=== PATIENT | male | born 1965 | race Native Hawaiian/Other Pacific Islander ===

== ENCOUNTER 2022-04-02 18:41 | Inpatient (IN) | payer MEDICARE ==
[2022-04-02] MEDS ORDERED: SODIUM CHLORIDE 0.9% 1000 ML 1,000 ML IV ONE (19:02)
--- NOTE | 2022-04-02 19:21 | Emergency Department Report ---
ED Shortness of Breath HPI - General Chief Complaint: Dyspnea/Respdistress Stated Complaint: UNRESPONSIVE Time Seen by Provider: 04/02/22 19:02 Source: EMS Mode of arrival: Stretcher Limitations: Physical Limitation - History of Present Illness Initial Comments: Patient is a 57-year-old gentleman brought in from home by EMS for altered mental status and respiratory distress. He has history of ALS and was recently admitted for pneumonia. Family reports that he had a "heart attack "at that time. EMS noted patient altered with agonal breathing on arrival and began bag valve mask ventilation. He was also noted to be hypotensive and tachycardic. - Related Data Allergies Allergy/AdvReac Type Severity Reaction Status Date / Time No Known Allergies Allergy Verified 04/02/22 18:54 ED Review of Systems ROS: Stated complaint: UNRESPONSIVE Other details as noted in HPI Comment: Unobtainable due to pts medical conditions ED Past Medical Hx - Past Medical History Additional medical history: ALS - Social History Smoking Status: Never Smoker ED Physical Exam - General Limitations: Altered Mental Status General appearance: obtunded - Head Head exam: Present: atraumatic, normocephalic - Eye Eye exam: Present: normal appearance Pupils: Present: other (Pupils sluggish) - Respiratory Respiratory exam: Present: accessory muscle use, other (Poor respiratory effort likely secondary to ALS, BVM ventilation in progress) - Cardiovascular Cardiovascular Exam: Present: normal rhythm, tachycardia, normal heart sounds - GI/Abdominal GI/Abdominal exam: Present: soft. Absent: distended - Rectal Rectal exam: Present: deferred - Extremities Exam Extremities exam: Present: other (Muscular atrophy in all extremities) - Neurological Exam Neurological exam: Present: altered - Skin Skin exam: Present: intact, normal color, diaphoretic. Absent: rash ED Course Vital Signs 04/02/22 04/02/22 04/02/22 19:16 20:23 20:37 Temperature Pulse Rate Respiratory Rate Blood Pressure Blood Pressure [Right] O2 Sat by Pulse 0 L 94 94 Oximetry 04/02/22 04/02/22 04/02/22 21:13 21:15 21:16 Temperature 97.9 F Pulse Rate 130 H 128 H Respiratory 20 20 20 Rate Blood Pressure 87/50 Blood Pressure 87/50 [Right] O2 Sat by Pulse Oximetry 05/27/22 05/27/22 05/27/22 21:31 21:45 22:01 Temperature Pulse Rate 134 H 133 H 133 H Respiratory 20 20 20 Rate Blood Pressure 91/54 101/60 94/68 Blood Pressure [Right] O2 Sat by Pulse Oximetry 04/02/22 04/02/22 04/02/22 22:15 22:31 22:45 Temperature Pulse Rate 133 H 131 H 133 H Respiratory 20 20 20 Rate Blood Pressure 100/68 95/56 97/67 Blood Pressure [Right] O2 Sat by Pulse Oximetry - Intubation Time Out Performed: Yes Sedative: Etomidate Mg Given: 20 Paralytic: Rocuronium Mg Given: 100 Laryngoscope: fiberoptic video scope Size: 3 ET Tube Size: 7.5 Tube Secured Depth (cm): 22 Tube Secured Location: lips Tube Placement Confirmation: visualized tube passing t, equal breath sounds bilat, no breath sounds over epi Patient Tolerated Procedure: well, no complications Intubation Complications: none ED Medical Decision Making - Lab Data Result diagrams: 04/02/22 19:39 04/02/22 19:39 - Medical Decision Making Patient arrived via EMS from home for altered mental status and respiratory distress. On arrival he is being bagged by EMS with very little respiratory effort. Decision was made to emergently intubate using RSI. Chest x-ray obtained afterwards and reveals large right pleural effusion. Patient was also hypotensive on arrival and given 1 L bolus. Further fluid resuscitation avoided given pleural effusion. He was started on a Levophed drip. Also given IV Levaquin due to recent history of pneumonia and WBC count of 14. Troponin 0.048. EKG shows sinus tachycardia without any ischemic changes. Will discuss with on-call ICU physician with plans to admit to hospitalist. Critical care attestation.: If time is entered above; I have spent that time in minutes in the direct care of this critically ill patient, excluding procedure time. ED Disposition Clinical Impression: Acute respiratory failure, Pleural effusion, right Disposition: 09 ADMITTED INPATIENT Is pt being admited?: Yes Condition: Stable
--- NOTE | 2022-04-02 19:36 | XRay Report ---
CHEST 1 VIEW INDICATION: placement. COMPARISON: None FINDINGS: SUPPORT DEVICES: Endotracheal tube tip in satisfactory position at the level the clavicles. HEART: Within normal limits. LUNGS/PLEURA: Slightly rotated exam with moderate to large layering effusion on the right. Left lung is clear. Mild elevation of the right hemidiaphragm. ADDITIONAL FINDINGS: Gaseous distention of the stomach incidentally noted. IMPRESSION: 1. Support device in lung findings as above. Signer Name: Ponce Vuong MD Signed: 04/02/2022 7:32 PM Workstation Name: [id number]
[2022-04-02 20:00] LABS: ABG Base Excess 6.2 mmol/L (-2.0-3.0); ABG HCO3 30.6 mmol/L (20.0-26.0); ABG Methemoglobin 0.2 % (0.0-1.5); ABG Oxygen Saturation 94.4 % (95.0-99.0); ABG PCO2 42.9 mm Hg; ABG PH 7.471 pH Units (7.350-7.450); ABG PO2 47.8 mm Hg (80.0-90.0)
[2022-04-02 20:25] LABS: Hematocrit 39.4 % (35.5-45.6); Hemoglobin 12.9 gm/dl (11.8-15.2); Mean Corpuscular HGB Conc 33 % (32-34); Mean Corpuscular Volume 96 fl (84-94); Platelet Count 104 K/mm3 (140-440); Red Blood Count 4.11 M/mm3 (3.65-5.03); Red Cell Distribution Width 14.1 % (13.2-15.2)
[2022-04-02 20:35] LABS: INR 1.14 (0.87-1.13); Partial Thromboplastin Time 28.6 Sec. (24.2-36.6)
[2022-04-02 20:44] LABS: Alanine Aminotransferase 9 units/L (7-56); Albumin 2.7 g/dL (3.9-5); Blood Urea Nitrogen 20 mg/dL (9-20); Calcium 8.2 mg/dL (8.4-10.2); Hemolysis Index 40
[2022-04-02 21:00] LABS: BUN/Creatinine Ratio 40
[2022-04-02 21:17] LABS: HDL Cholesterol 47 mg/dL (40-59); LDL Cholesterol,Direct 27 mg/dL (50-130)
[2022-04-02] MEDS: NORepinephrine/NS 8 MG-250 ML 8 MG/250 ML INFUS..BTL IV SCH (21:38)
[2022-04-02 21:45] LABS: Bacteria,Urine 1+ /HPF (Negative); Bilirubin,Urine NEG (Negative); Blood,Urine NEG (Negative); Color,Urine Yellow (Yellow); Mucus,Urine FEW /HPF; Urobilinogen,Urine < 2.0 mg/dL (<2.0)
[2022-04-02] MEDS: MIDAZOLAM 2 MG/2 ML INJ IV PRN (22:10)
[2022-04-02] MEDS ORDERED: MIDAZOLAM/NS Drip 100mg/100ml 100 MG/100 ML BAG IV SCH (23:00)
[2022-04-02] MEDS ORDERED: VANCOMYCIN PHARMACY TO DOSE IV SCH (23:45)
[2022-04-02] MEDS ORDERED: SODIUM CHLORIDE 0.9% 1000 ML 1,000 ML IV SCH (23:45)
[2022-04-02] MEDS ORDERED: ONDANSETRON 4 MG/2 ML INJ IV PRN (23:53)
[2022-04-02] MEDS ORDERED: MAGNESIUM HYDROXIDE (MOM) ORAL LIQD UDC PO PRN (23:53)
[2022-04-02] MEDS ORDERED: MORPHINE 4 MG/1 ML INJ IV PRN (23:53)
[2022-04-02] MEDS ORDERED: MORPHINE 2 MG/1 ML INJ IV PRN (23:53)
[2022-04-03 00:03] LABS: Basophils % (Manual) 0 % (0.0-1.8); Eosinophils % (Manual) 0 % (0.0-4.3); Total Cells Counted 100
[2022-04-03 00:04] LABS: Anisocytosis 1+; Platelet Estimate Consistent w Auto
--- NOTE | 2022-04-03 00:05 | History and Physical Report ---
History of Present Illness Date of examination: 04/02/22 Date of admission: 04/02/2022 Chief complaint: Altered Mental Status History of present illness: 57-year-old male with known history of ALS brought into the emergency room via EMS today for changes in mental status and respiratory distress. Most of the history was gotten from family namely and daughter who were by the bedside as patient is currently intubated. Patient was said to have been seen at [facility] few days ago where he was diagnosed with pneumonia and possible heart attack. Discharge paperwork from [facility] was reviewed by the bedside and patient was said to have been diagnosed with pneumonia and also elevated troponin. Elevated troponin was said to be possibly due to demand ischemia and patient did not undergo any further cardiac work-up. Patient was subsequently discharged home. Patient was said to have suddenly had a change in mental status today and was not quite responsive. There has been no fever or chills. No complaint of chest pain, no nausea or vomiting and no abdominal pain. Work-up in the emergency room today, lab reveals leukocytosis of 14.3, troponin 0.048, sodium of 151. Urinalysis essentially within normal limits. Chest x-ray reveals moderate to large effusion on the right. Patient was said to be having Agonal breathing and was subsequently intubated in the emergency room. Past History Past Medical History: other (ALS) Past Surgical History: No surgical history Social history: no significant social history Family history: no significant family history Medications and Allergies Allergies Allergy/AdvReac Type Severity Reaction Status Date / Time No Known Allergies Allergy Verified 04/02/22 18:54 Home Medications Medication Instructions Recorded Confirmed Last Taken Type Baclofen [Lioresal] 10 mg PO TID 04/03/22 04/03/22 04/02/22 History Gabapentin 300 mg PO BID 04/03/22 04/03/22 04/02/22 History Glycopyrrolate [Robinul] 1 mg PO BID 04/03/22 04/03/22 04/02/22 History Hyoscyamine Subl [Levsin Sl 0.125 0.125 mg SUBLINGUAL Q4HR 04/03/22 04/03/22 Unknown History TAB] LORazepam [Ativan] 1 mg PO Q4HR PRN 04/03/22 04/03/22 04/02/22 History Nuedexta 20-10 mg Capsule 1 cap PO Q12HR 04/03/22 04/03/22 04/02/22 History Riluzole 50 mg PO DAILY 04/03/22 04/03/22 04/02/22 History Active Meds: Active Medications Acetaminophen (Acetaminophen 325 Mg Tab) 650 mg PO Q6H PRN PRN Reason: Pain MILD(1-3)/Fever >100.5/FAITH Heparin Sodium (Porcine) (Heparin 5,000 Unit/1 Ml Vial) 5,000 unit SUB-Q Q8HR SEGUNDO NORepinephrine/NS 8 MG-250 ML (Norepinephrine/Ns 8 Mg-250 Ml (Double Conc)) 8 mg in 250 mls @ 3.75 mls/hr IV TITRATE SEGUNDO; Protocol Last Titration: 04/02/22 23:51 Dose: 8 mcg/min, 15 mls/hr MIDAZOLAM/NS Drip 100mg/100ml (Midazolam/Ns Drip 100mg/100ml) 100 mg in 100 mls @ 1 mls/hr IV TITR SEGUNDO; Protocol Last Titration: 04/02/22 23:51 Dose: 2 mg/hr, 2 mls/hr Sodium Chloride (Nacl 0.9% 1000 Ml) 1,000 mls @ 125 mls/hr IV DIRECT SEGUNDO Cefepime HCl (Cefepime/Ns 2 Gm/100 Ml) 2 gm in 100 mls @ 200 mls/hr IV Q8H SEGUNDO; Protocol Magnesium Hydroxide (Magnesium Hydroxide (Mom) Oral Liqd Udc) 30 ml PO Q4H PRN PRN Reason: Constipation Midazolam HCl (Midazolam 2 Mg/2 Ml Inj) 2 mg IV Q10MIN PRN PRN Reason: Sedation Last Admin: 04/02/22 22:10 Dose: 2 mg Morphine Sulfate (Morphine 2 Mg/1 Ml Inj) 2 mg IV Q4H PRN PRN Reason: Pain, Moderate (4-6) Morphine Sulfate (Morphine 4 Mg/1 Ml Inj) 4 mg IV Q4H PRN PRN Reason: Pain , Severe (7-10) Ondansetron HCl (Ondansetron 4 Mg/2 Ml Inj) 4 mg IV Q8H PRN PRN Reason: Nausea And Vomiting Sodium Chloride (Sodium Chloride 0.9% 10 Ml Flush Syringe) 10 ml IV BID SEGUNDO Sodium Chloride (Sodium Chloride 0.9% 10 Ml Flush Syringe) 10 ml IV PRN PRN PRN Reason: LINE FLUSH Review of Systems ROS unobtainable: due to endotracheal tube Exam - Constitutional Vitals: Temp Pulse Resp BP Pulse Ox 97.9 F 133 H 20 82/53 99 04/02/22 21:16 04/02/22 23:45 04/02/22 23:45 04/02/22 23:45 04/02/22 23:05 General appearance: Present: no acute distress, well-nourished - EENT Eyes: Present: PERRL, EOM intact. Absent: scleral icterus ENT: hearing intact, clear oral mucosa, dentition normal - Neck Neck: Present: supple, normal ROM - Respiratory Respiratory effort: normal Respiratory: bilateral: diminished - Cardiovascular Rhythm: regular Heart Sounds: Present: S1 & S2. Absent: gallop, systolic murmur, diastolic murmur, rub, click - Extremities Extremities: no ischemia, pulses intact, pulses symmetrical, No edema, normal temperature, normal color, Full ROM Peripheral Pulses: within normal limits - Abdominal General gastrointestinal: Present: soft, non-tender, non-distended, normal bowel sounds. Absent: mass - Integumentary Integumentary: Present: clear, warm, dry, normal turgor. Absent: rash - Musculoskeletal Musculoskeletal: other (Intubated and Sedated) - Psychiatric Psychiatric: cooperative - Neurologic Neurologic: no focal deficits, other (Intubated and Sedated) HEART Score - HEART Score Troponin: Troponin T 0.048 ng/mL (0.00-0.029) H 04/02/22 19:39 Results - Labs CBC & Chem 7: 04/02/22 19:39 04/03/22 05:14 Labs: Abnormal lab results 04/02/22 04/02/22 04/02/22 Range/Units 19:39 19:39 19:39 WBC 14.3 H (4.5-11.0) K/mm3 MCV 96 H (84-94) fl Plt Count 104 L (140-440) K/mm3 PT 15.9 H (12.2-14.9) Sec. INR 1.14 H (0.87-1.13) ABG pH (7.350-7.450) pH Units ABG pO2 (80.0-90.0) mm Hg ABG HCO3 (20.0-26.0) mmol/L ABG O2 Saturation (95.0-99.0) % ABG Base Excess (-2.0-3.0) mmol/L ABG Hemoglobin (14.0-18.0) gm/dl Oxyhemoglobin (95.0-99.0) % Sodium 151 H (137-145) mmol/L Creatinine 0.5 L (0.8-1.3) mg/dL Calcium 8.2 L (8.4-10.2) mg/dL Magnesium 1.60 L (1.7-2.3) mg/dL Troponin T 0.048 H (0.00-0.029) ng/mL Total Protein 4.6 L (6.3-8.2) g/dL Albumin 2.7 L (3.9-5) g/dL LDL Cholesterol Direct 27 L (50-130) mg/dL 04/02/22 Range/Units 19:42 WBC (4.5-11.0) K/mm3 MCV (84-94) fl Plt Count (140-440) K/mm3 PT (12.2-14.9) Sec. INR (0.87-1.13) ABG pH 7.471 H (7.350-7.450) pH Units ABG pO2 47.8 L (80.0-90.0) mm Hg ABG HCO3 30.6 H (20.0-26.0) mmol/L ABG O2 Saturation 94.4 L (95.0-99.0) % ABG Base Excess 6.2 H (-2.0-3.0) mmol/L ABG Hemoglobin 11.0 L (14.0-18.0) gm/dl Oxyhemoglobin 93.1 L (95.0-99.0) % Sodium (137-145) mmol/L Creatinine (0.8-1.3) mg/dL Calcium (8.4-10.2) mg/dL Magnesium (1.7-2.3) mg/dL Troponin T (0.00-0.029) ng/mL Total Protein (6.3-8.2) g/dL Albumin (3.9-5) g/dL LDL Cholesterol Direct (50-130) mg/dL Assessment and Plan - Patient Problems (1) Acute respiratory failure Current Visit: No Status: Acute Plan to address problem: Possibly secondary to underlying pneumonia/pleural effusion. Patient placed on empiric IV antibiotics. Await culture results. Consult placed to pulmonology for further evaluation and recommendations. (2) History of amyotrophic lateral sclerosis Current Visit: No Status: Acute Plan to address problem: Stable. (3) Dehydration Current Visit: No Status: Acute Plan to address problem: Patient placed on IV fluid normal saline. Will monitor chemistry. (4) Elevated troponin Current Visit: Yes Status: Acute Plan to address problem: Possibly a type II troponin leak Will monitor EKG. We will also trend troponin levels. Consult placed to cardiology for recommendations. (5) DVT prophylaxis Current Visit: No Status: Acute Plan to address problem: Patient placed on subcutaneous heparin. (6) Full code status Current Visit: No Status: Acute Plan to address problem: Patient is full code.
[2022-04-03] MEDS ORDERED: VANCOMYCIN/NS 1 GM/250 ML 1 GM/250 ML BAG IV ONE ×2 (01:00→05:00)
[2022-04-03] MEDS ORDERED: CEFEPIME/NS 2 GM/100 ML 2 GM/100 ML BAG IV SCH ×2 (04:00)
[2022-04-03] MEDS ORDERED: ACETAMINOPHEN 650 MG RECT SUPP PR ONE (04:50)
[2022-04-03 05:51] LABS: Blood Urea Nitrogen 20 mg/dL (9-20); Calcium 8.8 mg/dL (8.4-10.2); Hemolysis Index 23
[2022-04-03 05:52] LABS: BUN/Creatinine Ratio 50
[2022-04-03] MEDS: HEPARIN 5,000 UNIT/1 ML VIAL SUB-Q SCH ×3 (05:57→21:30)
--- NOTE | 2022-04-03 06:41 | Consultation ---
History of Present Illness Consult date: 04/03/22 Requesting physician: BRONSON CAMPOS Reason for consult: other (Resp failure , vent management) History of present illness: 57-year-old male with known history of ALS brought into the emergency room via EMS today for changes in mental status and respiratory distress. Most of the history was gotten from family namely and daughter who were by the bedside as patient is currently intubated. Patient was said to have been seen at [facility] few days ago where he was diagnosed with pneumonia and possible heart attack. Discharge paperwork from [facility] was reviewed by the bedside and patient was said to have been diagnosed with pneumonia and also elevated troponin. Elevated troponin was said to be possibly due to demand ischemia and patient did not undergo any further cardiac work-up. Patient was subsequently discharged home. Patient was said to have suddenly had a change in mental status today and was not quite responsive. There has been no fever or chills. No complaint of chest pain, no nausea or vomiting and no abdominal pain. Work-up in the emergency room today, lab reveals leukocytosis of 14.3, troponin 0.048, sodium of 151. Urinalysis essentially within normal limits. Chest x-ray reveals moderate to large effusion on the right. Patient was said to be having Agonal breathing and was subsequently intubated in the emergency room. Patient seen and examined. Vitals, labs, medications, chart and imaging reviewed Past History Past Medical History: other (ALS) Past Surgical History: No surgical history Social history: no significant social history Family history: no significant family history Medications and Allergies Allergies Allergy/AdvReac Type Severity Reaction Status Date / Time No Known Allergies Allergy Verified 04/02/22 18:54 Home Medications Medication Instructions Recorded Confirmed Last Taken Type Baclofen [Lioresal] 10 mg PO TID 04/03/22 04/03/22 04/02/22 History Gabapentin 300 mg PO BID 04/03/22 04/03/22 04/02/22 History Glycopyrrolate [Robinul] 1 mg PO BID 04/03/22 04/03/22 04/02/22 History Hyoscyamine Subl [Levsin Sl 0.125 0.125 mg SUBLINGUAL Q4HR 04/03/22 04/03/22 Unknown History TAB] LORazepam [Ativan] 1 mg PO Q4HR PRN 04/03/22 04/03/22 04/02/22 History Nuedexta 20-10 mg Capsule 1 cap PO Q12HR 04/03/22 04/03/22 04/02/22 History Riluzole 50 mg PO DAILY 04/03/22 04/03/22 04/02/22 History Active Meds: Active Medications Acetaminophen (Acetaminophen 325 Mg Tab) 650 mg PO Q6H PRN PRN Reason: Pain MILD(1-3)/Fever >100.5/FAITH Heparin Sodium (Porcine) (Heparin 5,000 Unit/1 Ml Vial) 5,000 unit SUB-Q Q8HR SEGUNDO Last Admin: 04/03/22 05:57 Dose: 5,000 unit NORepinephrine/NS 8 MG-250 ML (Norepinephrine/Ns 8 Mg-250 Ml (Double Conc)) 8 mg in 250 mls @ 3.75 mls/hr IV TITRATE SEGUNDO; Protocol Last Titration: 04/03/22 03:25 Dose: 12 mcg/min, 22.5 mls/hr MIDAZOLAM/NS Drip 100mg/100ml (Midazolam/Ns Drip 100mg/100ml) 100 mg in 100 mls @ 1 mls/hr IV TITR SEGUNDO; Protocol Last Titration: 04/03/22 03:10 Dose: 3 mg/hr, 3 mls/hr Sodium Chloride (Nacl 0.9% 1000 Ml) 1,000 mls @ 125 mls/hr IV DIRECT SEGUNDO Last Admin: 04/03/22 03:51 Dose: 125 mls/hr Cefepime HCl (Cefepime/Ns 2 Gm/100 Ml) 2 gm in 100 mls @ 200 mls/hr IV Q8HR SEGUNDO; Protocol Last Admin: 04/03/22 04:23 Dose: 200 mls/hr Vancomycin HCl 750 mg/ Sodium (Chloride) 265 mls @ 166.667 mls/hr IV Q12H SEGUNDO Magnesium Hydroxide (Magnesium Hydroxide (Mom) Oral Liqd Udc) 30 ml PO Q4H PRN PRN Reason: Constipation Midazolam HCl (Midazolam 2 Mg/2 Ml Inj) 2 mg IV Q10MIN PRN PRN Reason: Sedation Last Admin: 04/02/22 22:10 Dose: 2 mg Morphine Sulfate (Morphine 2 Mg/1 Ml Inj) 2 mg IV Q4H PRN PRN Reason: Pain, Moderate (4-6) Morphine Sulfate (Morphine 4 Mg/1 Ml Inj) 4 mg IV Q4H PRN PRN Reason: Pain , Severe (7-10) Ondansetron HCl (Ondansetron 4 Mg/2 Ml Inj) 4 mg IV Q8H PRN PRN Reason: Nausea And Vomiting Sodium Chloride (Sodium Chloride 0.9% 10 Ml Flush Syringe) 10 ml IV BID SEGUNDO Sodium Chloride (Sodium Chloride 0.9% 10 Ml Flush Syringe) 10 ml IV PRN PRN PRN Reason: LINE FLUSH Review of Systems ROS unobtainable: due to endotracheal tube Physical Examination Vital signs: Vital Signs Pulse Ox 0 L 04/02/22 19:16 General appearance: appears uncomfortable, other (orally intubated, on full MVS- riding set vent rate) Eyes: non-icteric ENT: oropharynx moist Neck: supple, no lymphadenopathy, no JVD Effort: mildly labored Ascultation: Bilateral: diminished breath sounds (right lung), rhonchi Cardiovascular: regular rate and rhythm, other (S1,S2) Gastrointestinal: normoactive bowel sounds, soft, non-tender Extremities: no cyanosis, no edema, pink and warm, pulses normal pupils equal and round anxious Results - Laboratory Findings CBC and BMP: 04/06/22 04:00 04/06/22 04:00 ABG ABG pH 7.471 pH Units (7.350-7.450) H 04/02/22 19:42 ABG pCO2 42.9 mm Hg 04/02/22 19:42 ABG pO2 47.8 mm Hg (80.0-90.0) L 04/02/22 19:42 ABG O2 Saturation 94.4 % (95.0-99.0) L 04/02/22 19:42 PT/INR, D-dimer PT 15.9 Sec. (12.2-14.9) H 04/02/22 19:39 INR 1.14 (0.87-1.13) H 04/02/22 19:39 Abnormal lab findings: Abnormal Labs 04/02/22 04/02/22 04/02/22 19:39 19:39 19:39 WBC 14.3 H MCV 96 H Plt Count 104 L Seg Neuts % (Manual) 94.0 H Lymphocytes % (Manual) 1.0 L Seg Neutrophils # Man 13.4 H Lymphocytes # (Manual) 0.1 L PT 15.9 H INR 1.14 H ABG pH ABG pO2 ABG HCO3 ABG O2 Saturation ABG Base Excess ABG Hemoglobin Oxyhemoglobin Sodium 151 H Potassium Creatinine 0.5 L Calcium 8.2 L Magnesium 1.60 L Troponin T 0.048 H Total Protein 4.6 L Albumin 2.7 L LDL Cholesterol Direct 27 L 04/02/22 04/03/22 19:42 05:14 WBC MCV Plt Count Seg Neuts % (Manual) Lymphocytes % (Manual) Seg Neutrophils # Man Lymphocytes # (Manual) PT INR ABG pH 7.471 H ABG pO2 47.8 L ABG HCO3 30.6 H ABG O2 Saturation 94.4 L ABG Base Excess 6.2 H ABG Hemoglobin 11.0 L Oxyhemoglobin 93.1 L Sodium 149 H Potassium 3.4 L Creatinine 0.4 L Calcium Magnesium Troponin T Total Protein Albumin LDL Cholesterol Direct - Diagnostic Findings Chest x-ray: image reviewed 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 Protein calorie malnutrition Acute Bronchopneumonia HCAP Hypotension NSTEMI Hypernatremia Acute Metabolic Encephalopathy H/o Amyotrophic Lateral Sclerosis Nonverbal at Baseline Thrombocytopenia Protein Caloric Malnutrition Constipation - Noted on CXR and KUB -Adjust minute ventilation for better gas exchange -Lung protective strategies, increase PEEP while monitoring airway pressures -CXR, ABG as clinically indicated -Daily assessment for readiness to wean. Daily SBT -Wean vasopressors for MAP>65, Volume resuscitate -Fentanyl infusion fro pain management. Titrate to CPOT 0-2 - CXR suggesting atelectasis adn pleural effusion. Bronchodilators and mucolytics -Monitoring renal function, hemodynamics and electrolyte profile -Replete electrolytes as clinically indicated -Empiric antibiotics therapy for HAP -Accuchecks with glycemic control. target blood glucose 140-180 mg/dL. Avoid hypoglycemia -Confirm OGT position and initiate enteric nutritional support -VTE prophylaxis- Heparin -Avoid nephrotoxins and renally dose all medications -Stress ulcer prophylaxis- start famotidine -Mobility, frequent turning, off loading per facility protocol to prevent pressure ulcers -Cardioprotective measures, Follow echocardiogram -Maintain sleep wake cycle, avoid benzodiazepines. -Limit delirium CONDITION:CRITICAL PROGNOSIS: GUARDED CODE STATUS; FULL CODE Will need to discuss wiht family re goals of care- ALS is progressive and very limited therapeutic options The high probability of a clinically significant, sudden or life threatening deterioration of the respiratory, cardiovascular, neurology system required my full and direct attention, intervention and personal management. The aggregate critical care time was [75] minutes. This time is in addition to time spent performing reported procedures but includes the following: [x] Data Review and interpretation [x] Patient assessment and monitoring of vital signs [x] Documentation [x] Medication orders and management
[2022-04-03 06:43] LABS: ABG Base Excess 2.6 mmol/L (-2.0-3.0); ABG HCO3 25.5 mmol/L (20.0-26.0); ABG Methemoglobin 0.4 % (0.0-1.5); ABG Oxygen Saturation 97.5 % (95.0-99.0); ABG PCO2 33.7 mm Hg; ABG PH 7.496 pH Units (7.350-7.450)
[2022-04-03] MEDS ORDERED: ETOMIDATE 20 MG/10 ML INJ IV ONE (07:00)
[2022-04-03] MEDS ORDERED: ROCURONIUM 50 MG/5 ML INJ IV ONE (07:00)
[2022-04-03] MEDS: NORepinephrine/NS 8 MG-250 ML 8 MG/250 ML INFUS..BTL IV SCH ×2 (09:00→19:48)
--- NOTE | 2022-04-03 10:04 | Cat Scan Report ---
CT head/brain wo con INDICATION / CLINICAL INFORMATION: 57 years Male; AMS. TECHNIQUE: Routine CT head without contrast. All CT scans at this location are performed using CT dos e reduction for ALARA by means of automated exposure control. COMPARISON: None. FINDINGS: BRAIN / INTRACRANIAL CONTENTS: The motion degrades the image quality in this intubated patient. Howev er, there is mild prominence of the cerebral sulci indicative of mild cerebral atrophy. The ventricul ar system is correspondingly appropriate in size and configuration. A small focus of calcification pr ojected along the head of the right caudate. Otherwise, the brain appears to demonstrate appropriate attenuation for age. There is no clear CT evidence of acute intracranial hemorrhage or significant ma ss effect. ORBITS: No significant abnormality of visualized orbits. SINUSES / MASTOIDS: There is mild focal opacification along the posterior lateral left sphenoid sinus . CRANIOCERVICAL JUNCTION: No significant abnormality. ADDITIONAL FINDINGS: There is incidental small exostosis along the outer table of the left frontal ca lvarium. IMPRESSION: 1. There is no clear CT evidence of acute intracranial process. Signer Name: Puma Moreno MD Signed: 04/03/2022 10:00 AM Workstation Name: [id number]
--- NOTE | 2022-04-03 10:06 | Cat Scan Report ---
CT CHEST WITH CONTRAST INDICATION / CLINICAL INFORMATION: right lung mass/infiltrate/ adenopathy/effusion. TECHNIQUE: Axial CT images were obtained through the chest after 75 cc of Omnipaque [address]. [address] scan s at this location are performed using CT dose reduction for ALARA by means of automated exposure con trol. COMPARISON: Chest radiograph from yesterday, 04/02/2022. FINDINGS: Thoracic aorta is normal in caliber. No central pulmonary embolus. Heart is not enlarged. No coronary artery calcifications. No pericardial effusion. Mildly enlarged right hilar (series 2 image 63) and subcarinal (series 2 image 69) lymph nodes, nonspecific but likely reactive. No other adenopathy is s een. Endotracheal tube terminates in the midtrachea. There is prominent endobronchial debris in the right lower lobe bronchi with dense airspace consolidation of the right lower lobe with air bronchograms an d trace right pleural effusion. Extensive tree-in-bud opacities are present within the right upper an d right middle lobe. Left lung is clear. No pneumothorax. No acute abnormality of the upper abdomen. No acute osseous findings. IMPRESSION: 1. Prominent nonspecific endobronchial material in the right lower lobe with dense airspace consolida tion of the right lower lobe. Prominent tree-in-bud opacities and mild consolidation in the right upp er and middle lobes. Findings are most consistent with acute bronchopneumonia. 2. Mild right hilar and subcarinal lymphadenopathy is likely reactive. No discrete obstructing hilar adenopathy or mass. 3. Satisfactory position of endotracheal tube. Signer Name: Errol Oscar MD Signed: 04/03/2022 10:02 AM Workstation Name: [id number]
[2022-04-03] MEDS: FAMOTIDINE 20 MG/2 ML INJ IV SCH (10:10)
--- NOTE | 2022-04-03 10:21 | Consultation ---
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 Cardiac consultation for elevated troponin levels. Recent admission in [place] documented elevated troponin levels possibly secondary to demand ischemia no cardiac work-up was done at that time. Past History Past Medical History: other (ALS) Past Surgical History: No surgical history Social history: no significant social history Family history: no significant family history Medications and Allergies Allergies Allergy/AdvReac Type Severity Reaction Status Date / Time No Known Allergies Allergy Verified 04/02/22 18:54 Home Medications Medication Instructions Recorded Confirmed Last Taken Type Baclofen [Lioresal] 10 mg PO TID 04/03/22 04/03/22 04/02/22 History Gabapentin 300 mg PO BID 04/03/22 04/03/22 04/02/22 History Glycopyrrolate [Robinul] 1 mg PO BID 04/03/22 04/03/22 04/02/22 History Hyoscyamine Subl [Levsin Sl 0.125 0.125 mg SUBLINGUAL Q4HR 04/03/22 04/03/22 Unknown History TAB] LORazepam [Ativan] 1 mg PO Q4HR PRN 04/03/22 04/03/22 04/02/22 History Nuedexta 20-10 mg Capsule 1 cap PO Q12HR 04/03/22 04/03/22 04/02/22 History Riluzole 50 mg PO DAILY 04/03/22 04/03/22 04/02/22 History Active Meds: Active Medications Acetaminophen (Acetaminophen 325 Mg Tab) 650 mg PO Q6H PRN PRN Reason: Pain MILD(1-3)/Fever >100.5/FAITH Famotidine (Famotidine 20 Mg/2 Ml Inj) 20 mg IV QDAY SEGUNDO Heparin Sodium (Porcine) (Heparin 5,000 Unit/1 Ml Vial) 5,000 unit SUB-Q Q8HR SEGUNDO Last Admin: 04/03/22 05:57 Dose: 5,000 unit NORepinephrine/NS 8 MG-250 ML (Norepinephrine/Ns 8 Mg-250 Ml (Double Conc)) 8 mg in 250 mls @ 3.75 mls/hr IV TITRATE SEGUNDO; Protocol Last Titration: 04/03/22 03:25 Dose: 12 mcg/min, 22.5 mls/hr Sodium Chloride (Nacl 0.9% 1000 Ml) 1,000 mls @ 125 mls/hr IV DIRECT SEGUNDO Last Admin: 04/03/22 03:51 Dose: 125 mls/hr Vancomycin HCl 750 mg/ Sodium (Chloride) 265 mls @ 166.667 mls/hr IV Q12H SEGUNDO Dexmedetomidine HCl 400 mcg/ (Sodium Chloride) 104 mls @ 2.434 mls/hr IV TITRATE SEGUNDO; Protocol Cefepime HCl (Cefepime/Ns 2 Gm/100 Ml) 2 gm in 100 mls @ 200 mls/hr IV Q12H SEGUNDO; Protocol Magnesium Hydroxide (Magnesium Hydroxide (Mom) Oral Liqd Udc) 30 ml PO Q4H PRN PRN Reason: Constipation Midazolam HCl (Midazolam 2 Mg/2 Ml Inj) 2 mg IV Q10MIN PRN PRN Reason: Sedation Last Admin: 04/02/22 22:10 Dose: 2 mg Ondansetron HCl (Ondansetron 4 Mg/2 Ml Inj) 4 mg IV Q8H PRN PRN Reason: Nausea And Vomiting Potassium Chloride (Potassium Chloride 20 Meq Packet) 40 meq FEEDTUBE ONCE@1200 NR Stop: 04/03/22 15:00 Sodium Chloride (Sodium Chloride 0.9% 10 Ml Flush Syringe) 10 ml IV BID SEGUNDO Sodium Chloride (Sodium Chloride 0.9% 10 Ml Flush Syringe) 10 ml IV PRN PRN PRN Reason: LINE FLUSH Review of Systems ROS unobtainable: due to endotracheal tube, due to mental status Physical Examination Vital Signs Pulse Ox 0 L 04/02/22 19:16 General appearance: no acute distress, other (intubated) HEENT: Positive: PERRL, Normocephaly Neck: Positive: neck supple, trachea midline (intubated). Negative: JVD/HJR Cardiac: Positive: Regular Rate, S1/S2, PMI, Laterally Displaced. Negative: S3, S4 Lungs: Positive: clear to auscultation, No Wheeze, Rales, Rhonchi Neuro: Positive: Other (Intubated sedated) Extremities: Absent: edema Results 04/02/22 19:39 04/03/22 05:14 Cardiac Enzymes 04/02/22 Range/Units 19:39 AST 15 (5-40) units/L Coagulation 04/02/22 Range/Units 19:39 PT 15.9 H (12.2-14.9) Sec. INR 1.14 H (0.87-1.13) APTT 28.6 (24.2-36.6) Sec. Lipids 04/02/22 Range/Units 19:39 Triglycerides 80 (2-149) mg/dL Cholesterol 94 (50-199) mg/dL HDL Cholesterol 47 (40-59) mg/dL Cholesterol/HDL Ratio 2.00 % CBC 04/02/22 Range/Units 19:39 WBC 14.3 H (4.5-11.0) K/mm3 RBC 4.11 (3.65-5.03) M/mm3 Hgb 12.9 (11.8-15.2) gm/dl Hct 39.4 (35.5-45.6) % Plt Count 104 L (140-440) K/mm3 Comprehensive Metabolic Panel 04/02/22 04/03/22 Range/Units 19:39 05:14 Sodium 151 H 149 H (137-145) mmol/L Potassium 4.0 3.4 L (3.6-5.0) mmol/L Chloride 106.7 106.6 (98-107) mmol/L Carbon Dioxide 28 26 (22-30) mmol/L BUN 20 20 (9-20) mg/dL Creatinine 0.5 L 0.4 L (0.8-1.3) mg/dL Glucose 83 87 (75-100) mg/dL Calcium 8.2 L 8.8 (8.4-10.2) mg/dL AST 15 (5-40) units/L ALT 9 (7-56) units/L Alkaline Phosphatase 43 (35-129) units/L Total Protein 4.6 L (6.3-8.2) g/dL Albumin 2.7 L (3.9-5) g/dL EKG interpretations - Telemetry EKG Rhythm: Sinus Rhythm Assessment and Plan 1. Community-acquired bronchopneumonia 2. Respiratory failure s/p intubation on mechanical ventilator. 3. Equivocal serum troponin elevation rule out ischemic coronary artery disease 4. ALS Plan. Currently stable will obtain an echocardiogram to assess global and regional function. Will start on beta-artis therapy if hemodynamically stable. Treatment for bronchopneumonia as per pulmonary. Patient is not a candidate for invasive cardiac management we will continue conservative management
--- NOTE | 2022-04-03 10:38 | Progress Note ---
<ALEK SMITH - Last Filed: 04/03/22 16:38> Assessment and Plan Assessment and plan: This is a 57-year-old male with known history of ALS, recently hospitalized at [facility] admitted for acute hypoxemic respiratory failure 2/2 pneumonia Hospital Course to Date: 04/03: Intubated and Sedated on versed gtt, RASS-5. CT head/brain noted with no acute intracranial abnormality. Plan to initiated precededx gtt and wean off versed for a RASS goal of 0 to -2. CT chect also reviewed, findings are most consistent with acute bronchopneumonia. Continue empiric IV Abx, vent adjustment per CCM. ID consulted. Continue to F/U on cultures. Titrate pressor for MAP above 65. Medical records requested from [facility]. #Acute Hypoxemic Respiratory Failure 2/2 #Acute Bronchopneumonia - Intubated in the ED on 04/02 for hypoxemia and airway protection - Vent setting: PRVC-50%,6,14,400 - AM ABG noted - CXR shows moderate to large layering effusion on the right, see report for full detail - CT chest also reviewed, findings are most consistent with acute bronchopn eumonia. See report for full detail - CCM consulted, appreciate recommendations - Continue empiric IV and Nebs - VAP bundle addressed - Aspiration precaution HOB above 30 - Daily SBT and SAT trials as tolerated - Daily ABG and CXR - Continue SPO2 monitoring for SPO2 goal above 92% #Acute Bronchopneumonia #CAP vs HCAP - CXR shows moderate to large layering effusion on the right, see report for full detail - CT chest also reviewed, findings are most consistent with acute bronchopneumonia. See report for full detail - Patient was recent hospitalized for pneumonia - Patient remains afebrile, with no WBcs, and lactic is less than 2 - MRSA, CRP, and Procal pending - Empiric IV Abx initiated: Cefepine and Vanco - ID consulted - Continue to F/U on cultures - Daily CBC monitor #Hypotension #NSTEMI - Low BP probably due to hypovolemia vs sedation vs infectious process - On Levophed gtt - Elevated troponin possibly a type II troponin leak - Cardiology consulted, appreciated recommendations - Maintain adequate perfusion - Continue rehydration with cont. IVF - Continue blood pressure monitor per protocol - Titrate pressors to maintain MAP above 65 - 2D echo pending - Continue to trend cardiac enzymes #Hypernatremia - Na 149 this am - IVF switched to [id number] bag - FWF once OGT/NGT is inserted - Monitor and replace electrolytes as needed - Continue to trend BMP #Acute Metabolic Encephalopathy #H/o Amyotrophic Lateral Sclerosis #Nonverbal at Baseline - Presented with AMS, per family patient is nonverbal at baseline but responsive - currently intubated and sedated on versed gtt, RASS -5 - CT head/Brain with no acute intracranial process - Precedex gtt initiated, plan to wean off versed gtt - Titrate sedation for RASS goal of 0 to -2 - Daily SAT and SBT as tolerated - Avoid benzodiazepine to reduce the possibility of delirium - PRN analgesia for CPOT greater than 3 - Maintenance of sleep-wake cycle #Thrombocytopenia - Stable - Continue to trend plt - On heparin subQ - Monitor for s/s of any active bleeding #Protein Caloric Malnutrition - Albumin 2.7, Total protein 4.6 - Insert OGT/NGT - plan to initiated enteral nutrition - Nutrition consulted #Constipation - Noted on CXR and KUB - BR initiated #GI/DVT Prophylaxis - PPI- Pepcid - Heparin SubQ - SCDs to bilateral lower extremities while in bed #Advance Care Planning - Disease education data, care plan, diagnoses, and prognosis were discussed patient's , Carly Lopez, and patient daughter, Kaylee Warren, who translated for #[phone]. They reported that patient was following at [facility] for his ALS and during recent hospitalization at [facility] they were told nothing else can be offered to patient at this time and patient was discharge home with home hospice and PO morphine. First hospice visit was on , however, patient became unresponsive yesterday and they brought in to the hospital. - Goal of care and code status were also addressed at that time. Family wants to wait for a couple days to see how patient respond to current treatment before making a decision. All questions and concerns were addressed at this time. Patient family acknowledged understanding and agreement with care plan. - Patient remains a FULL CODE status. The high probability of a clinically significant, sudden or life threatening deterioration of the [multiple] system(s) required my full and direct attention, intervention and personal management. The aggregate critical care time was [60] minutes. This time is in addition to time spent performing reported procedures but includes the following: [x] Data Review and interpretation [x] Patient assessment and monitoring of vital signs [x] Documentation [x] Medication orders and management Disposition Plan: ICU Total Time Spent with Patient (Minutes): 60 History Interval history: Patient seen and examined at the bedside. Intubated and intubated on versed gtt. RASS-5, pupils are round and reactive with a weak gag/cough. On Levophed gtt for hypotension. VIRGILIO overnight Hospitalist Physical - Constitutional Vitals: Temp Pulse Resp BP Pulse Ox 100 F H 94 H 14 96/61 98 04/03/22 06:00 04/03/22 08:45 04/03/22 07:10 04/03/22 08:45 04/03/22 08:45 General appearance: Present: no acute distress, cachectic, other (Intubated and sedated) - EENT Eyes: Present: PERRL, miosis - Respiratory Respiratory effort: normal Respiratory: bilateral: rhonchi - Cardiovascular Rhythm: regular Heart Sounds: Present: S1 & S2 - Extremities Extremities: no ischemia, pulses intact, pulses symmetrical Peripheral Pulses: within normal limits - Abdominal General gastrointestinal: soft, non-distended, hypoactive bowel sounds - Integumentary Integumentary: Present: warm, dry - Psychiatric Psychiatric: other (Intubated and Sedated) - Neurologic Neurologic: other (Intubated and Sedated) - Allied Health Allied health notes reviewed: nursing HEART Score - HEART Score Troponin: Troponin T 0.048 ng/mL (0.00-0.029) H 04/02/22 19:39 Results - Labs CBC & Chem 7: 04/02/22 19:39 04/03/22 05:14 Labs: Laboratory Last Values WBC 14.3 K/mm3 (4.5-11.0) H 04/02/22 19:39 RBC 4.11 M/mm3 (3.65-5.03) 04/02/22 19:39 Hgb 12.9 gm/dl (11.8-15.2) 04/02/22 19:39 Hct 39.4 % (35.5-45.6) 04/02/22 19:39 MCV 96 fl (84-94) H 04/02/22 19:39 MCH 32 pg (28-32) 04/02/22 19:39 MCHC 33 % (32-34) 04/02/22 19:39 RDW 14.1 % (13.2-15.2) 04/02/22 19:39 Plt Count 104 K/mm3 (140-440) L 04/02/22 19:39 Add Manual Diff Complete 04/02/22 19:39 Total Counted 100 04/02/22 19:39 Seg Neutrophils % Grain Weigher 04/02/22 19:39 Seg Neuts % (Manual) 94.0 % (40.0-70.0) H 04/02/22 19:39 Band Neutrophils % 0 % 04/02/22 19:39 Lymphocytes % (Manual) 1.0 % (13.4-35.0) L 04/02/22 19:39 Reactive Lymphs % (Man) 0 % 04/02/22 19:39 Monocytes % (Manual) 5.0 % (0.0-7.3) 04/02/22 19:39 Eosinophils % (Manual) 0 % (0.0-4.3) 04/02/22 19:39 Basophils % (Manual) 0 % (0.0-1.8) 04/02/22 19:39 Metamyelocytes % 0 % 04/02/22 19:39 Myelocytes % 0 % 04/02/22 19:39 Promyelocytes % 0 % 04/02/22 19:39 Blast Cells % 0 % 04/02/22 19:39 Nucleated RBC % Not Reportable 04/02/22 19:39 Seg Neutrophils # Man 13.4 K/mm3 (1.8-7.7) H 04/02/22 19:39 Band Neutrophils # 0.0 K/mm3 04/02/22 19:39 Lymphocytes # (Manual) 0.1 K/mm3 (1.2-5.4) L 04/02/22 19:39 Abs React Lymphs (Man) 0.0 K/mm3 04/02/22 19:39 Monocytes # (Manual) 0.7 K/mm3 (0.0-0.8) 04/02/22 19:39 Eosinophils # (Manual) 0.0 K/mm3 (0.0-0.4) 04/02/22 19:39 Basophils # (Manual) 0.0 K/mm3 (0.0-0.1) 04/02/22 19:39 Metamyelocytes # 0.0 K/mm3 04/02/22 19:39 Myelocytes # 0.0 K/mm3 04/02/22 19:39 Promyelocytes # 0.0 K/mm3 04/02/22 19:39 Blast Cells # 0.0 K/mm3 04/02/22 19:39 WBC Morphology Not Reportable 04/02/22 19:39 Hypersegmented Neuts Not Reportable 04/02/22 19:39 Hyposegmented Neuts Not Reportable 04/02/22 19:39 Hypogranular Neuts Not Reportable 04/02/22 19:39 Smudge Cells Not Reportable 04/02/22 19:39 Toxic Granulation Not Reportable 04/02/22 19:39 Toxic Vacuolation Not Reportable 04/02/22 19:39 Dohle Bodies Not Reportable 04/02/22 19:39 Pelger-Huet Anomaly Not Reportable 04/02/22 19:39 Terry Rods Not Reportable 04/02/22 19:39 Platelet Estimate Consistent w auto 04/02/22 19:39 Clumped Platelets Not Reportable 04/02/22 19:39 Plt Clumps, EDTA Not Reportable 04/02/22 19:39 Large Platelets Not Reportable 04/02/22 19:39 Giant Platelets Not Reportable 04/02/22 19:39 Platelet Satelliting Not Reportable 04/02/22 19:39 Plt Morphology Comment Not Reportable 04/02/22 19:39 RBC Morphology Not Reportable 04/02/22 19:39 Dimorphic RBCs Not Reportable 04/02/22 19:39 Polychromasia Not Reportable 04/02/22 19:39 Hypochromasia Not Reportable 04/02/22 19:39 Poikilocytosis Not Reportable 04/02/22 19:39 Anisocytosis 1+ 04/02/22 19:39 Microcytosis Not Reportable 04/02/22 19:39 Macrocytosis Not Reportable 04/02/22 19:39 Spherocytes Not Reportable 04/02/22 19:39 Pappenheimer Bodies Not Reportable 04/02/22 19:39 Sickle Cells Not Reportable 04/02/22 19:39 Target Cells Not Reportable 04/02/22 19:39 Tear Drop Cells Not Reportable 04/02/22 19:39 Ovalocytes Not Reportable 04/02/22 19:39 Helmet Cells Not Reportable 04/02/22 19:39 Patricio-[place] Bodies Not Reportable 04/02/22 19:39 [place] Rings Not Reportable 04/02/22 19:39 Cheikh Cells Not Reportable 04/02/22 19:39 Bite Cells Not Reportable 04/02/22 19:39 Crenated Cell Not Reportable 04/02/22 19:39 Elliptocytes Not Reportable 04/02/22 19:39 Acanthocytes (Spur) Not Reportable 04/02/22 19:39 Rouleaux Not Reportable 04/02/22 19:39 Hemoglobin C Crystals Not Reportable 04/02/22 19:39 Schistocytes Not Reportable 04/02/22 19:39 Malaria parasites Not Reportable 04/02/22 19:39 [place] Bodies Not Reportable 04/02/22 19:39 Hem Pathologist Commnt No 04/02/22 19:39 PT 15.9 Sec. (12.2-14.9) H 04/02/22 19:39 INR 1.14 (0.87-1.13) H 04/02/22 19:39 APTT 28.6 Sec. (24.2-36.6) 04/02/22 19:39 ABG pH 7.496 pH Units (7.350-7.450) H 04/03/22 06:30 ABG pCO2 33.7 mm Hg 04/03/22 06:30 ABG pO2 91.0 mm Hg (80.0-90.0) H 04/03/22 06:30 ABG HCO3 25.5 mmol/L (20.0-26.0) 04/03/22 06:30 ABG O2 Saturation 97.5 % (95.0-99.0) 04/03/22 06:30 ABG O2 Content 17.3 (0.0-44) 04/03/22 06:30 ABG Base Excess 2.6 mmol/L (-2.0-3.0) 04/03/22 06:30 ABG Hemoglobin 12.8 gm/dl (14.0-18.0) L 04/03/22 06:30 ABG Carboxyhemoglobin 0.9 % (0.0-5.0) 04/03/22 06:30 ABG Methemoglobin 0.4 % (0.0-1.5) 04/03/22 06:30 Oxyhemoglobin 96.2 % (95.0-99.0) 04/03/22 06:30 FiO2 50 % 04/03/22 06:30 Sodium 149 mmol/L (137-145) H 04/03/22 05:14 Potassium 3.4 mmol/L (3.6-5.0) L 04/03/22 05:14 Chloride 106.6 mmol/L (98-107) 04/03/22 05:14 Carbon Dioxide 26 mmol/L (22-30) 04/03/22 05:14 Anion Gap 20 mmol/L 04/03/22 05:14 BUN 20 mg/dL (9-20) 04/03/22 05:14 Creatinine 0.4 mg/dL (0.8-1.3) L 04/03/22 05:14 Estimated GFR > 60 ml/min 04/03/22 05:14 BUN/Creatinine Ratio 50 % 04/03/22 05:14 Glucose 87 mg/dL (75-100) 04/03/22 05:14 Lactic Acid 1.90 mmol/L (0.7-2.0) 04/02/22 19:39 Calcium 8.8 mg/dL (8.4-10.2) 04/03/22 05:14 Magnesium 1.60 mg/dL (1.7-2.3) L 04/02/22 19:39 Total Bilirubin 0.80 mg/dL (0.1-1.2) 04/02/22 19:39 AST 15 units/L (5-40) 04/02/22 19:39 ALT 9 units/L (7-56) 04/02/22 19:39 Alkaline Phosphatase 43 units/L (35-129) 04/02/22 19:39 Troponin T 0.048 ng/mL (0.00-0.029) H 04/02/22 19:39 Total Protein 4.6 g/dL (6.3-8.2) L 04/02/22 19:39 Albumin 2.7 g/dL (3.9-5) L 04/02/22 19:39 Albumin/Globulin Ratio 1.4 % 04/02/22 19:39 Triglycerides 80 mg/dL (2-149) 04/02/22 19:39 Cholesterol 94 mg/dL (50-199) 04/02/22 19:39 LDL Cholesterol Direct 27 mg/dL (50-130) L 04/02/22 19:39 HDL Cholesterol 47 mg/dL (40-59) 04/02/22 19:39 Cholesterol/HDL Ratio 2.00 % 04/02/22 19:39 Urine Color Yellow (Yellow) 04/02/22 Unknown Urine Turbidity Clear (Clear) 04/02/22 Unknown Urine pH 6.0 (5.0-7.0) 04/02/22 Unknown Ur Specific Liberal 1.015 (1.003-1.030) 04/02/22 Unknown Urine Protein 30 mg/dl mg/dL (Negative) 04/02/22 Unknown Urine Glucose (UA) Neg mg/dL (Negative) 04/02/22 Unknown Urine Ketones 20 mg/dL (Negative) 04/02/22 Unknown Urine Blood Neg (Negative) 04/02/22 Unknown Urine Nitrite Neg (Negative) 04/02/22 Unknown Urine Bilirubin Neg (Negative) 04/02/22 Unknown Urine Urobilinogen < 2.0 mg/dL (<2.0) 04/02/22 Unknown Ur Leukocyte Esterase Neg (Negative) 04/02/22 Unknown Urine WBC (Auto) 6.0 /HPF (0.0-6.0) 04/02/22 Unknown Urine RBC (Auto) 2.0 /HPF (0.0-6.0) 04/02/22 Unknown U Epithel Cells (Auto) < 1.0 /HPF (0-13.0) 04/02/22 Unknown Urine Bacteria (Auto) 1+ /HPF (Negative) 04/02/22 Unknown Urine Mucus Few /HPF 04/02/22 Unknown Microbiology: Microbiology 04/02/22 19:39 Peripheral/Venous Blood Culture - Preliminary Culture in Progress 04/02/22 19:39 Peripheral/Venous Blood Culture - Preliminary Culture in Progress Perez/IV: Voiding Method Indwelling Catheter Active Medications - Current Medications Current Medications: Generic Name Dose Route Start Last Admin Trade Name Freq PRN Reason Stop Dose Admin Acetaminophen 650 mg 04/02/22 23:53 Acetaminophen 325 Mg Tab PO Q6H PRN Pain MILD(1-3)/Fever >100.5/FAITH Famotidine 20 mg 04/03/22 10:00 Famotidine 20 Mg/2 Ml Inj IV QDAY [facility] Heparin Sodium (Porcine) 5,000 unit 04/03/22 06:00 04/03/22 05:57 Heparin 5,000 Unit/1 Ml Vial SUB-Q 5,000 unit Q8HR SEGUNDO Administration NORepinephrine/NS 8 MG-250 ML 8 mg in 250 mls @ 3.75 mls/hr 04/02/22 22:00 04/03/22 03:25 Norepinephrine/Ns 8 Mg-250 Ml (Double Conc) IV 12 mcg/min TITRATE SEGUNDO 22.5 mls/hr Titration Protocol 2 MCG/MIN Sodium Chloride 1,000 mls @ 125 mls/hr 04/02/22 23:45 04/03/22 03:51 Nacl 0.9% 1000 Ml IV 125 mls/hr DIRECT SEGUNDO Administration Vancomycin HCl 750 mg/ Sodium 265 mls @ 166.667 mls/hr 04/03/22 18:00 Chloride IV Q12H [facility] Dexmedetomidine HCl 400 mcg/ 104 mls @ 2.434 mls/hr 04/03/22 07:00 Sodium Chloride IV TITRATE [facility] Protocol 0.2 MCG/KG/HR Cefepime HCl 2 gm in 100 mls @ 200 mls/hr 04/03/22 18:00 Cefepime/Ns 2 Gm/100 Ml IV Q12H [facility] Protocol Magnesium Hydroxide 30 ml 04/02/22 23:53 Magnesium Hydroxide (Mom) Oral Liqd Udc PO Q4H PRN Constipation Midazolam HCl 2 mg 04/02/22 22:01 04/02/22 22:10 Midazolam 2 Mg/2 Ml Inj IV 2 mg Q10MIN PRN Administration Sedation Ondansetron HCl 4 mg 04/02/22 23:53 Ondansetron 4 Mg/2 Ml Inj IV Q8H PRN Nausea And Vomiting Potassium Chloride 40 meq 04/03/22 12:00 Potassium Chloride 20 Meq Packet FEEDTUBE 04/03/22 15:00 ONCE@1200 NR Sodium Chloride 10 ml 04/03/22 10:00 Sodium Chloride 0.9% 10 Ml Flush Syringe IV BID SEGUNDO Sodium Chloride 10 ml 04/02/22 23:53 Sodium Chloride 0.9% 10 Ml Flush Syringe IV PRN PRN LINE FLUSH <DIXIE BROWN E - Last Filed: 04/04/22 15:36> Assessment and Plan Assessment and plan: I saw and evaluated the patient. I agree with the findings and the plan of care as documented in the Nurse Practitioner's~note, with the following corrections and additions. Hospitalist Physical - Constitutional Vitals: Temp Pulse Resp BP Pulse Ox 97.4 F L 86 14 99/69 95 04/04/22 12:00 04/04/22 15:10 04/04/22 15:10 04/04/22 15:10 04/04/22 15:10 HEART Score - HEART Score Troponin: Troponin T 0.048 ng/mL (0.00-0.029) H 04/02/22 19:39 Results - Labs CBC & Chem 7: 04/04/22 04:18 04/04/22 04:18 Labs: Laboratory Last Values WBC 11.8 K/mm3 (4.5-11.0) H 04/04/22 04:18 RBC 3.86 M/mm3 (3.65-5.03) 04/04/22 04:18 Hgb 12.0 gm/dl (11.8-15.2) 04/04/22 04:18 Hct 35.8 % (35.5-45.6) 04/04/22 04:18 MCV 93 fl (84-94) 04/04/22 04:18 MCH 31 pg (28-32) 04/04/22 04:18 MCHC 34 % (32-34) 04/04/22 04:18 RDW 14.2 % (13.2-15.2) 04/04/22 04:18 Plt Count 132 K/mm3 (140-440) L 04/04/22 04:18 Add Manual Diff Complete 04/02/22 19:39 Total Counted 100 04/02/22 19:39 Seg Neutrophils % Grain Weigher 04/02/22 19:39 Seg Neuts % (Manual) 94.0 % (40.0-70.0) H 04/02/22 19:39 Band Neutrophils % 0 % 04/02/22 19:39 Lymphocytes % (Manual) 1.0 % (13.4-35.0) L 04/02/22 19:39 Reactive Lymphs % (Man) 0 % 04/02/22 19:39 Monocytes % (Manual) 5.0 % (0.0-7.3) 04/02/22 19:39 Eosinophils % (Manual) 0 % (0.0-4.3) 04/02/22 19:39 Basophils % (Manual) 0 % (0.0-1.8) 04/02/22 19:39 Metamyelocytes % 0 % 04/02/22 19:39 Myelocytes % 0 % 04/02/22 19:39 Promyelocytes % 0 % 04/02/22 19:39 Blast Cells % 0 % 04/02/22 19:39 Nucleated RBC % Not Reportable 04/02/22 19:39 Seg Neutrophils # Man 13.4 K/mm3 (1.8-7.7) H 04/02/22 19:39 Band Neutrophils # 0.0 K/mm3 04/02/22 19:39 Lymphocytes # (Manual) 0.1 K/mm3 (1.2-5.4) L 04/02/22 19:39 Abs React Lymphs (Man) 0.0 K/mm3 04/02/22 19:39 Monocytes # (Manual) 0.7 K/mm3 (0.0-0.8) 04/02/22 19:39 Eosinophils # (Manual) 0.0 K/mm3 (0.0-0.4) 04/02/22 19:39 Basophils # (Manual) 0.0 K/mm3 (0.0-0.1) 04/02/22 19:39 Metamyelocytes # 0.0 K/mm3 04/02/22 19:39 Myelocytes # 0.0 K/mm3 04/02/22 19:39 Promyelocytes # 0.0 K/mm3 04/02/22 19:39 Blast Cells # 0.0 K/mm3 04/02/22 19:39 WBC Morphology Not Reportable 04/02/22 19:39 Hypersegmented Neuts Not Reportable 04/02/22 19:39 Hyposegmented Neuts Not Reportable 04/02/22 19:39 Hypogranular Neuts Not Reportable 04/02/22 19:39 Smudge Cells Not Reportable 04/02/22 19:39 Toxic Granulation Not Reportable 04/02/22 19:39 Toxic Vacuolation Not Reportable 04/02/22 19:39 Dohle Bodies Not Reportable 04/02/22 19:39 Pelger-Huet Anomaly Not Reportable 04/02/22 19:39 Terry Rods Not Reportable 04/02/22 19:39 Platelet Estimate Consistent w auto 04/02/22 19:39 Clumped Platelets Not Reportable 04/02/22 19:39 Plt Clumps, EDTA Not Reportable 04/02/22 19:39 Large Platelets Not Reportable 04/02/22 19:39 Giant Platelets Not Reportable 04/02/22 19:39 Platelet Satelliting Not Reportable 04/02/22 19:39 Plt Morphology Comment Not Reportable 04/02/22 19:39 RBC Morphology Not Reportable 04/02/22 19:39 Dimorphic RBCs Not Reportable 04/02/22 19:39 Polychromasia Not Reportable 04/02/22 19:39 Hypochromasia Not Reportable 04/02/22 19:39 Poikilocytosis Not Reportable 04/02/22 19:39 Anisocytosis 1+ 04/02/22 19:39 Microcytosis Not Reportable 04/02/22 19:39 Macrocytosis Not Reportable 04/02/22 19:39 Spherocytes Not Reportable 04/02/22 19:39 Pappenheimer Bodies Not Reportable 04/02/22 19:39 Sickle Cells Not Reportable 04/02/22 19:39 Target Cells Not Reportable 04/02/22 19:39 Tear Drop Cells Not Reportable 04/02/22 19:39 Ovalocytes Not Reportable 04/02/22 19:39 Helmet Cells Not Reportable 04/02/22 19:39 Patricio-[place] Bodies Not Reportable 04/02/22 19:39 [place] Rings Not Reportable 04/02/22 19:39 Cheikh Cells Not Reportable 04/02/22 19:39 Bite Cells Not Reportable 04/02/22 19:39 Crenated Cell Not Reportable 04/02/22 19:39 Elliptocytes Not Reportable 04/02/22 19:39 Acanthocytes (Spur) Not Reportable 04/02/22 19:39 Rouleaux Not Reportable 04/02/22 19:39 Hemoglobin C Crystals Not Reportable 04/02/22 19:39 Schistocytes Not Reportable 04/02/22 19:39 Malaria parasites Not Reportable 04/02/22 19:39 [place] Bodies Not Reportable 04/02/22 19:39 Hem Pathologist Commnt No 04/02/22 19:39 PT 15.9 Sec. (12.2-14.9) H 04/02/22 19:39 INR 1.14 (0.87-1.13) H 04/02/22 19:39 APTT 28.6 Sec. (24.2-36.6) 04/02/22 19:39 ABG pH 7.517 pH Units (7.350-7.450) H 04/04/22 05:50 ABG pCO2 37.7 mm Hg 04/04/22 05:50 ABG pO2 115.5 mm Hg (80.0-90.0) H 04/04/22 05:50 ABG HCO3 29.9 mmol/L (20.0-26.0) H 04/04/22 05:50 ABG O2 Saturation 98.4 % (95.0-99.0) 04/04/22 05:50 ABG O2 Content 17.0 (0.0-44) 04/04/22 05:50 ABG Base Excess 6.7 mmol/L (-2.0-3.0) H 04/04/22 05:50 ABG Hemoglobin 12.3 gm/dl (14.0-18.0) L 04/04/22 05:50 ABG Carboxyhemoglobin 0.9 % (0.0-5.0) 04/04/22 05:50 ABG Methemoglobin 0.4 % (0.0-1.5) 04/04/22 05:50 Oxyhemoglobin 97.1 % (95.0-99.0) 04/04/22 05:50 FiO2 50 % 04/04/22 05:50 Sodium 143 mmol/L (137-145) 04/04/22 04:18 Potassium 3.5 mmol/L (3.6-5.0) L 04/04/22 04:18 Chloride 105.1 mmol/L (98-107) 04/04/22 04:18 Carbon Dioxide 31 mmol/L (22-30) H 04/04/22 04:18 Anion Gap 10 mmol/L 04/04/22 04:18 BUN 13 mg/dL (9-20) 04/04/22 04:18 Creatinine 0.3 mg/dL (0.8-1.3) L 04/04/22 04:18 Estimated GFR > 60 ml/min 04/04/22 04:18 BUN/Creatinine Ratio 43 % 04/04/22 04:18 Glucose 153 mg/dL (75-100) H 04/04/22 04:18 Lactic Acid 1.90 mmol/L (0.7-2.0) 04/02/22 19:39 Calcium 9.2 mg/dL (8.4-10.2) 04/04/22 04:18 Phosphorus 1.40 mg/dL (2.5-4.5) L 04/04/22 04:18 Magnesium 1.50 mg/dL (1.7-2.3) L 04/04/22 04:18 Total Bilirubin 0.80 mg/dL (0.1-1.2) 04/02/22 19:39 AST 15 units/L (5-40) 04/02/22 19:39 ALT 9 units/L (7-56) 04/02/22 19:39 Alkaline Phosphatase 43 units/L (35-129) 04/02/22 19:39 Troponin T 0.048 ng/mL (0.00-0.029) H 04/02/22 19:39 C-Reactive Protein 31.60 mg/dL (0.00-1.30) H 04/04/22 04:18 Total Protein 4.6 g/dL (6.3-8.2) L 04/02/22 19:39 Albumin 2.7 g/dL (3.9-5) L 04/02/22 19:39 Albumin/Globulin Ratio 1.4 % 04/02/22 19:39 Triglycerides 80 mg/dL (2-149) 04/02/22 19:39 Cholesterol 94 mg/dL (50-199) 04/02/22 19:39 LDL Cholesterol Direct 27 mg/dL (50-130) L 04/02/22 19:39 HDL Cholesterol 47 mg/dL (40-59) 04/02/22 19:39 Cholesterol/HDL Ratio 2.00 % 04/02/22 19:39 Urine Color Yellow (Yellow) 04/02/22 Unknown Urine Turbidity Clear (Clear) 04/02/22 Unknown Urine pH 6.0 (5.0-7.0) 04/02/22 Unknown Ur Specific Liberal 1.015 (1.003-1.030) 04/02/22 Unknown Urine Protein 30 mg/dl mg/dL (Negative) 04/02/22 Unknown Urine Glucose (UA) Neg mg/dL (Negative) 04/02/22 Unknown Urine Ketones 20 mg/dL (Negative) 04/02/22 Unknown Urine Blood Neg (Negative) 04/02/22 Unknown Urine Nitrite Neg (Negative) 04/02/22 Unknown Urine Bilirubin Neg (Negative) 04/02/22 Unknown Urine Urobilinogen < 2.0 mg/dL (<2.0) 04/02/22 Unknown Ur Leukocyte Esterase Neg (Negative) 04/02/22 Unknown Urine WBC (Auto) 6.0 /HPF (0.0-6.0) 04/02/22 Unknown Urine RBC (Auto) 2.0 /HPF (0.0-6.0) 04/02/22 Unknown U Epithel Cells (Auto) < 1.0 /HPF (0-13.0) 04/02/22 Unknown Urine Bacteria (Auto) 1+ /HPF (Negative) 04/02/22 Unknown Urine Mucus Few /HPF 04/02/22 Unknown Microbiology: Microbiology 04/02/22 19:16 Tracheal Aspirate Sputum Culture - Preliminary Gram Negative Deejay 04/02/22 19:39 Peripheral/Venous Blood Culture - Preliminary 04/02/22 19:39 Peripheral/Venous Blood Culture - Preliminary NO GROWTH AFTER 24 HOURS Perez/IV: Voiding Method Indwelling Catheter Active Medications - Current Medications Current Medications: Generic Name Dose Route Start Last Admin Trade Name Freq PRN Reason Stop Dose Admin Acetaminophen 650 mg 04/02/22 23:53 Acetaminophen 325 Mg Tab PO Q6H PRN Pain MILD(1-3)/Fever >100.5/FAITH Bisacodyl 10 mg 04/03/22 15:00 04/03/22 16:01 Bisacodyl 10 Mg Rect Supp [place] 10 mg ONCE SEGUNDO Administration Docusate Sodium 100 mg 04/03/22 15:00 04/04/22 09:58 Docusate Sodium 100 Mg/10 Ml Oral Liqd PO 100 mg BID SEGUNDO Administration Famotidine 20 mg 04/03/22 10:00 04/04/22 09:58 Famotidine 20 Mg/2 Ml Inj IV 20 mg QDAY SEGUNDO Administration Heparin Sodium (Porcine) 5,000 unit 04/03/22 06:00 04/04/22 13:59 Heparin 5,000 Unit/1 Ml Vial SUB-Q 5,000 unit Q8HR SEGUNDO Administration NORepinephrine/NS 8 MG-250 ML 8 mg in 250 mls @ 3.75 mls/hr 04/02/22 22:00 04/04/22 06:41 Norepinephrine/Ns 8 Mg-250 Ml (Double Conc) IV 6 mcg/min TITRATE SEGUNDO 11.25 mls/hr Titration Protocol 2 MCG/MIN Vancomycin HCl 750 mg/ Sodium 265 mls @ 166.667 mls/hr 04/03/22 18:00 04/04/22 06:14 Chloride IV 166.667 mls/hr Q12H SEGUNDO Administration Dexmedetomidine HCl 400 mcg/ 104 mls @ 2.434 mls/hr 04/03/22 07:00 04/04/22 11:00 Sodium Chloride IV 0 mcg/kg/hr TITRATE SEGUNDO 0 mls/hr Titration Protocol 0.2 MCG/KG/HR Cefepime HCl 2 gm in 100 mls @ 200 mls/hr 04/03/22 18:00 04/04/22 06:13 Cefepime/Ns 2 Gm/100 Ml IV 200 mls/hr Q12H SEGUNDO Administration Protocol Magnesium Hydroxide 30 ml 04/02/22 23:53 Magnesium Hydroxide (Mom) Oral Liqd Udc PO Q4H PRN Constipation Midazolam HCl 2 mg 04/02/22 22:01 04/04/22 08:10 Midazolam 2 Mg/2 Ml Inj IV 2 mg Q10MIN PRN Administration Sedation Ondansetron HCl 4 mg 04/02/22 23:53 Ondansetron 4 Mg/2 Ml Inj IV Q8H PRN Nausea And Vomiting Senna 17.6 mg 04/03/22 22:00 04/04/22 09:58 Sennosides Oral Liqd 8.8 Mg/5 Ml Oral Liqd PO 17.6 mg Q12HR SEGUNDO Administration Sodium Chloride 10 ml 04/03/22 10:00 04/04/22 09:59 Sodium Chloride 0.9% 10 Ml Flush Syringe IV 10 ml BID SEGUNDO Administration Sodium Chloride 10 ml 04/02/22 23:53 Sodium Chloride 0.9% 10 Ml Flush Syringe IV PRN PRN LINE FLUSH Nutrition/Malnutrition Assess - Dietary Evaluation Nutrition/Malnutrition Findings: Nutrition Notes Start: 04/04/22 13:13 Freq: Status: Active Protocol: Document 04/04/22 13:13 RS (Rec: 04/04/22 13:34 RS [id number]) Nutrition Notes Need for Assessment generated from: MD Order Initial or Follow up Assessment Current Diagnosis Respiratory Failure Other Pertinent Diagnosis Community-acquired pneu, ALS Labs/Tests K+: 3.5 CO2:31 Cr: 0.3 Glu:153 PO4: 1.4 M.5 Pertinent Medications Norepinephrine NS at 11.25mL/ hr Height 5 ft 4.8 in Weight 46.8 kg [place] Body Weight (kg) 61.27 BMI 17.2 Intake Prior to Admission Poor Weight change and time frame ENRRIQUE wt hx Weight Status Underweight Subjective/Other Information MD consult for TF. Pt has hx of ALS, family reports pt has difficulty chewing/swallowing foods. Pt is intubated. Pt noted some mild muscle wasting in temporal region, protruding clavical bone. Burn Absent Trauma Absent GI Symptoms Constipation Food Allergy No Current % PO Negligible Minimum of two criteria No Muscle Mass Mild Depletion (non-severe) #1 Nutrition Diagnosis Inadequate oral intake Etiology community acquired bronchopneumonia As Evidenced by Signs and Symptoms pt intubated and cannot consume food PO Is patient on ventilator? Yes Is Patient Ambulatory and/or Out of Bed No REE-([facility]-confined to bed) 1476.744 Kcal/Kg value to use for calculation 35 Approximate Energy Requirements Using 1638 kcal/Kg Calculation Used for Recommendations Kcal/kg Additional Notes PRO needs: 56-94g/day (>1.2-2g /kg BW/day) Fluid needs: 1mL/kcal or per MD Nutrition Intervention Change Diet Order: Start TF Nutrition Support: Vital AF 1.2 at 60mL/hr. Free water flush of 125mL q4hr Kcal 1,728 Protein (gm) 108 Fluid (mL) 1,168 Goal #1 TF initiation/tolerance Goal #2 Pt will meet at least 75% of kcal/PRO needs via TF Goal #3 Wt gain/maintenance Anticipated Discharge Needs: ENRRIQUE at this time Follow-Up By: 04/06/22 Additional Comments F/U for TF tolerance/ initiation, labs
[2022-04-03] MEDS: MIDAZOLAM 2 MG/2 ML INJ IV PRN ×2 (11:35→23:11)
[2022-04-03] MEDS ORDERED: POTASSIUM CHLORIDE 20 MEQ PACKET FEEDTUBE NR (12:00)
[2022-04-03] MEDS ORDERED: VANCOMYCIN 750 MG in SODIUM CHLORIDE 0.9% 250ML 250 ML IV SCH (12:00)
--- NOTE | 2022-04-03 12:14 | Procedure Note ---
Date of procedure: 04/03/22 Pre-op diagnosis: Sepsis Post-op diagnosis: same Procedure: Right Internal Jugular Central Line Placement Patient was evaluated and required Central line placement due to pressor requirement Telephone consent obtained for patient's spouse, Carly Lopez and daughter, Emelia Warren who translated for spouse A time-out was completed verifying correct patient, procedure, site, and positioning. Hand hygiene were performed immediately prior to the procedure and sterile technique was used throughout the procedure. The patient's right side of the neck was prepped with chlorhexidine scrub then draped in a sterile fashion. 1% Lidocaine was used to anesthetize the surrounding skin area. Ultrasound was utilized to localize the right internal jugular vein without difficulty. Then the right internal jugular vein was accessed using ultrasound guidance and a triple lumen catheter was introduced using the Seldinger technique. The catheter threaded smoothly over the guidewire and advanced easily into the vein and brisk blood return was observed from each lumen. Each lumen were flushed and clamped, then the catheter was sutured in place, a Biopatch was placed at the insertion site, and covered with a sterile dressing. Patient tolerated the procedure well, no signs of any adverse reaction noted. CXR shows good placement without PTX, CVC is okay to use. Total Time Spent with Patient (Minutes): 60 minutes Anesthesia: local Surgeon: ALEK SMITH Estimated blood loss: minimal Condition: stable Disposition: ICU
--- NOTE | 2022-04-03 13:09 | XRay Report ---
CHEST 1 VIEW KUB INDICATION: NGT placement. COMPARISON: Chest x-ray from yesterday FINDINGS: SUPPORT DEVICES: New right IJ CVL with tip at cavoatrial junction. Endotracheal tube remains in satis factory position. On the KUB, and NG tube terminates in the proximal stomach and should be advanced a nother 5 to 10 cm. HEART: Within normal limits. LUNGS/PLEURA: Significantly improved aeration in the right lung with mild patchy airspace disease gre atest in the right lower lobe. Left lung is clear. ADDITIONAL FINDINGS: None. IMPRESSION: 1. Support devices as above. 2. Significantly improved lungs. Signer Name: Ponce Vuong MD Signed: 04/03/2022 1:05 PM Workstation Name: [id number]
[2022-04-03] MEDS: DOCUSATE SODIUM 100 MG/10 ML ORAL LIQD PO SCH ×2 (16:00→21:31)
[2022-04-03] MEDS: CEFEPIME/NS 2 GM/100 ML 2 GM/100 ML BAG IV SCH (17:40)
[2022-04-03] MEDS: VANCOMYCIN 750 MG in SODIUM CHLORIDE 0.9% 250ML 250 ML IV SCH (17:41)
[2022-04-03] MEDS ORDERED: DEXTROSE 5% IN WATER 1,000 ML IV SCH (18:00)
[2022-04-03] MEDS: SENNOSIDES ORAL LIQD 8.8 MG/5 ML ORAL LIQD PO SCH (21:31)
--- NOTE | 2022-04-04 03:37 | XRay Report ---
CHEST 1 VIEW INDICATION / CLINICAL INFORMATION: Respiratory Failure. COMPARISON: Chest x-ray 04/03/2022 FINDINGS: SUPPORT DEVICES: Stable, satisfactory device positioning. Interval insertion of esophagogastric tube tip in the left hemidiaphragm, last sidehole at the GE junction. HEART / MEDIASTINUM: Stable interval appearance of the cardiomediastinal silhouette. LUNGS / PLEURA: Partial atelectasis right lower lobe and/or infection. Lungs otherwise clear. BONES: No significant osseous abnormality. ADDITIONAL FINDINGS: No significant additional findings. IMPRESSION: 1. Interval insertion of esophagogastric tube last sidehole at the GE junction tip beneath left hemid iaphragm. 2. Partial atelectasis of right lower lobe. Lungs otherwise are clear. Signer Name: Trae Mcfarland II, MD Signed: 04/04/2022 3:32 AM Workstation Name: [id number]
[2022-04-04 05:19] LABS: Blood Urea Nitrogen 13 mg/dL (9-20); Calcium 9.2 mg/dL (8.4-10.2); Hemolysis Index 3
[2022-04-04 05:28] LABS: BUN/Creatinine Ratio 43
[2022-04-04 05:33] LABS: Hematocrit 35.8 % (35.5-45.6); Mean Corpuscular HGB Conc 34 % (32-34); Mean Corpuscular Volume 93 fl (84-94); Platelet Count 132 K/mm3 (140-440); Red Blood Count 3.86 M/mm3 (3.65-5.03); Red Cell Distribution Width 14.2 % (13.2-15.2)
[2022-04-04] MEDS: HEPARIN 5,000 UNIT/1 ML VIAL SUB-Q SCH ×3 (06:13→22:55)
[2022-04-04] MEDS: CEFEPIME/NS 2 GM/100 ML 2 GM/100 ML BAG IV SCH ×2 (06:13→17:23)
[2022-04-04] MEDS: VANCOMYCIN 750 MG in SODIUM CHLORIDE 0.9% 250ML 250 ML IV SCH ×2 (06:14→17:21)
[2022-04-04 06:17] LABS: ABG Base Excess 6.7 mmol/L (-2.0-3.0); ABG HCO3 29.9 mmol/L (20.0-26.0); ABG Methemoglobin 0.4 % (0.0-1.5); ABG Oxygen Saturation 98.4 % (95.0-99.0); ABG PCO2 37.7 mm Hg; ABG PH 7.517 pH Units (7.350-7.450); ABG PO2 115.5 mm Hg (80.0-90.0)
[2022-04-04] MEDS: MIDAZOLAM 2 MG/2 ML INJ IV PRN (08:10)
[2022-04-04] MEDS ORDERED: POTASSIUM PHOSPHATE 30 MMOL in SODIUM CHLORIDE 0.9% 500 ML 500 ML IV ONE (09:00)
[2022-04-04] MEDS ORDERED: MAGNESIUM SULFATE 4 GM/100 ML BAG IV ONE (09:00)
[2022-04-04] MEDS: FAMOTIDINE 20 MG/2 ML INJ IV SCH (09:58)
[2022-04-04] MEDS: SENNOSIDES ORAL LIQD 8.8 MG/5 ML ORAL LIQD PO SCH ×2 (09:58→22:55)
[2022-04-04] MEDS: DOCUSATE SODIUM 100 MG/10 ML ORAL LIQD PO SCH ×2 (09:58→22:54)
--- NOTE | 2022-04-04 10:20 | Progress Note ---
Assessment and Plan 1. Community-acquired bronchopneumonia 2. Respiratory failure s/p intubation on mechanical ventilator. 3. Equivocal serum troponin elevation rule out ischemic coronary artery disease 4. ALS Plan. Currently stable will obtain an echocardiogram to assess global and regional function. Continue antibiotic treatment for bronchopneumonia as per pulmonary. Hold on beta-bloclers secondary to borderline low BP. Patient is not a candidate for invasive cardiac management we will continue conservative management Subjective Date of service: 04/04/22 Interval history: No change in clinical status Objective Vital Signs Temp Pulse Pulse Resp BP Pulse Ox 04/04/22 09:20 64 12 93/65 94 04/04/22 09:10 68 12 91/61 92 04/04/22 09:00 70 13 91/61 04/04/22 08:50 75 12 101/71 93 04/04/22 08:40 93 H 13 97/66 89 04/04/22 08:30 74 12 97/66 04/04/22 08:20 85 12 99/62 90 04/04/22 08:10 95 H 11 L 102/69 92 04/04/22 08:00 97.4 F L 91 H 60 12 102/69 100 04/04/22 07:50 91 H 13 108/73 90 04/04/22 07:40 75 11 L 99/67 94 04/04/22 07:30 56 L 12 99/67 04/04/22 07:20 56 L 12 104/69 100 04/04/22 07:10 56 L 12 112/70 100 04/04/22 07:00 60 14 112/70 100 04/04/22 06:50 60 14 113/71 100 04/04/22 06:40 64 14 138/87 100 04/04/22 06:30 66 14 138/87 04/04/22 06:20 71 14 126/94 100 04/04/22 06:10 55 L 14 118/80 100 04/04/22 06:00 55 L 14 118/80 04/04/22 05:50 55 L 14 121/77 100 04/04/22 05:40 56 L 14 113/77 100 04/04/22 05:30 56 L 14 113/77 98 04/04/22 05:20 55 L 14 119/77 100 04/04/22 05:10 56 L 14 117/79 99 04/04/22 05:00 57 L 14 117/79 98 04/04/22 04:50 56 L 14 116/78 100 04/04/22 04:40 59 L 14 116/78 99 04/04/22 04:30 56 L 14 116/78 97 04/04/22 04:20 61 14 119/77 99 04/04/22 04:10 57 L 14 114/77 99 04/04/22 04:00 98.0 F 56 L 54 L 14 114/77 100 04/04/22 03:50 55 L 14 115/77 99 04/04/22 03:49 57 L 115/77 99 04/04/22 03:40 57 L 14 111/76 99 04/04/22 03:30 58 L 14 111/76 97 04/04/22 03:20 59 L 14 116/79 99 04/04/22 03:10 60 14 121/82 99 04/04/22 03:00 64 14 121/82 04/04/22 02:50 64 14 123/83 98 04/04/22 02:40 66 14 123/83 98 04/04/22 02:30 67 14 123/83 04/04/22 02:20 69 14 121/83 98 04/04/22 02:10 67 14 125/82 99 04/04/22 02:00 66 14 125/82 04/04/22 01:50 67 14 117/81 99 04/04/22 01:40 68 14 120/82 98 04/04/22 01:30 70 14 120/82 96 04/04/22 01:20 71 14 120/81 98 04/04/22 01:10 70 14 115/76 98 04/04/22 01:00 64 14 115/76 96 04/04/22 00:50 65 14 106/70 97 04/04/22 00:40 66 14 103/67 96 04/04/22 00:30 68 14 103/67 94 04/04/22 00:20 71 14 100/61 95 04/04/22 00:10 83 14 114/80 92 04/04/22 00:00 99.5 F 88 70 14 114/80 89 04/03/22 23:50 81 14 111/74 90 04/03/22 23:40 102 H 15 100/65 89 04/03/22 23:30 80 14 100/65 93 05//22 23:20 86 14 96/61 94 05// 23:10 103 H 14 113/78 98 05 23:00 93 H 13 105/65 97 05/ 22:50 81 14 105/65 97 05 22:40 72 14 104/65 96 05//22 22:30 74 14 104/65 95 05//22 22:20 78 14 100/63 96 0522 22:10 73 14 104/65 96 05/22 22:00 73 14 98/61 94 05/22 21:55 100.2 F H 04/03/22 21:50 74 14 104/65 96 05 21:40 75 14 101/62 96 0522 21:30 71 14 102/65 97 04/03/22 21:20 70 14 101/62 98 05/ 21:10 70 14 104/67 98 0522 21:00 71 14 103/64 97 05 20:50 72 14 104/67 99 05 20:40 69 14 107/68 99 05/ 20:30 68 14 107/68 96 04/03/22 20:26 71 106/67 99 04/03/22 20:20 70 14 106/67 99 04/03/22 20:10 71 14 108/70 99 04/03/22 20:00 70 69 14 108/70 98 05 19:50 70 14 83/49 98 05 19:40 70 14 101/65 98 0522 19:30 71 14 101/65 0522 19:20 71 14 101/61 98 05/22 19:10 71 14 105/69 98 05 19:03 71 05 19:00 73 14 104/67 05 18:50 72 14 103/65 98 0522 18:48 72 14 103/65 98 0522 18:40 72 14 101/64 98 05/28/22 18:30 74 14 101/64 05//22 18:20 75 14 105/69 97 0522 18:10 75 14 99/63 97 05/28/22 18:00 75 14 99/63 05 17:50 71 14 111/73 97 05 17:40 73 14 109/71 98 04/03/22 17:30 74 14 109/71 95 04/03/22 17:20 74 14 107/69 98 04/03/22 17:10 81 14 111/70 98 04/03/22 17:00 77 14 109/69 05 16:50 75 14 107/68 98 04/03/22 16:40 73 14 110/69 98 04/03/22 16:30 69 14 110/69 04/03/22 16:20 69 14 111/70 99 04/03/22 16:15 82 110/69 99 04/03/22 16:10 71 14 110/72 99 04/03/22 16:00 71 71 14 110/72 97 04/03/22 15:50 69 14 109/68 99 04/03/22 15:40 75 14 102/72 99 04/03/22 15:30 78 14 102/72 99 04/03/22 15:20 79 14 97/62 99 04/03/22 15:10 72 14 105/67 99 04/03/22 15:00 72 14 105/67 99 04/03/22 14:50 67 14 107/67 100 04/03/22 14:40 67 14 115/73 100 04/03/22 14:30 68 14 115/73 98 04/03/22 14:20 65 14 107/69 100 04/03/22 14:10 66 14 101/65 100 04/03/22 14:00 65 14 101/65 05 13:50 67 14 98/64 99 04/03/22 13:40 72 14 100/63 98 04/03/22 13:30 73 14 100/63 05 13:20 79 14 104/68 98 04/03/22 13:10 86 13 99/65 98 04/03/22 13:00 92 H 14 99/65 04/03/22 12:50 99 H 14 113/73 97 05 12:40 101 H 15 96/64 98 05 12:30 95 H 14 96/64 05 12:20 95 H 14 100/65 98 04/03/22 12:10 101 H 14 115/75 98 04/03/22 12:05 87 99/65 97 04/03/22 12:00 102 H 102 H 14 115/75 97 04/03/22 11:50 101 H 14 112/76 98 04/03/22 11:40 93 H 14 105/69 98 04/03/22 11:30 86 14 105/69 04/03/22 11:20 87 14 100/67 95 04/03/22 11:10 90 14 94/64 96 04/03/22 11:00 91 H 14 94/64 04/03/22 10:50 88 14 97/58 95 04/03/22 10:40 83 14 99/61 97 04/03/22 10:30 84 14 99/61 04/03/22 10:20 87 14 104/65 97 - Physical Examination HEENT: Positive: PERRL, Normocephaly Neck: Positive: neck supple, trachea midline (intubated). Negative: JVD/HJR Cardiac: Positive: Regular Rate, S1/S2, PMI, Laterally Displaced. Negative: S3 Lungs: Positive: clear to auscultation, No Wheeze, Rales, Rhonchi Neuro: Positive: Other (Intubated sedated) Abdomen: Positive: Soft Extremities: Absent: edema - Labs and Meds CBC 04/04/22 Range/Units 04:18 WBC 11.8 H (4.5-11.0) K/mm3 RBC 3.86 (3.65-5.03) M/mm3 Hgb 12.0 (11.8-15.2) gm/dl Hct 35.8 (35.5-45.6) % Plt Count 132 L (140-440) K/mm3 Comprehensive Metabolic Panel 04/04/22 Range/Units 04:18 Sodium 143 (137-145) mmol/L Potassium 3.5 L (3.6-5.0) mmol/L Chloride 105.1 (98-107) mmol/L Carbon Dioxide 31 H (22-30) mmol/L BUN 13 (9-20) mg/dL Creatinine 0.3 L (0.8-1.3) mg/dL Glucose 153 H (75-100) mg/dL Calcium 9.2 (8.4-10.2) mg/dL
--- NOTE | 2022-04-04 12:57 | Progress Note ---
<ALEK SMITH - Last Filed: 04/04/22 17:31> Assessment and Plan Assessment and plan: This is a 57-year-old male with known history of ALS, recently hospitalized at [facility] admitted for acute hypoxemic respiratory failure 2/2 pneumonia Hospital Course to Date: 04/03: Intubated and Sedated on versed gtt, RASS-5. CT head/brain noted with no acute intracranial abnormality. Plan to initiated precededx gtt and wean off versed for a RASS goal of 0 to -2. CT chect also reviewed, findings are most consistent with acute bronchopneumonia. Continue empiric IV Abx, vent adjustment per CCM. ID consulted. Continue to F/U on cultures. Titrate pressor for MAP above 65. Medical records requested from [facility]. 04/04: Remains stable on the vent, easily arousable on precedex gtt, not following commands. Plan for SAT/SBT today. PRN analgesia for CPOT greater than 3. Fevers improved, cultures and procal pending. Continue current IV abx, ID also consulted. Remains on low dose pressors, titrate pressors for a MAP above 65. #Acute Hypoxemic Respiratory Failure 2/2 #Acute Bronchopneumonia - Intubated in the ED on 04/02 for hypoxemia and airway protection - Vent setting: PRVC-50%,6,12,400 - AM ABG noted - CXR shows moderate to large layering effusion on the right, see report for full detail - CT chest also reviewed, findings are most consistent with acute bronchopneumonia. See report for full detail - CCM consulted, appreciate recommendations - Continue empiric IV and Nebs - VAP bundle addressed - Aspiration precaution HOB above 30 - Daily SBT and SAT trials as tolerated - Daily ABG and CXR - Continue SPO2 monitoring for SPO2 goal above 92% #Sepsis #Acute Bronchopneumonia #CAP vs HCAP - CXR shows moderate to large layering effusion on the right, see report for full detail - CT chest also reviewed, findings are most consistent with acute bronchopneumonia. See report for full detail - Patient was recent hospitalized for pneumonia - Patient remains afebrile, with no WBcs, and lactic is less than 2 - MRSA negative. CRP-31.6 and Procal pending - Cultures pending - Continue empiric IV Abx initiated: Cefepine and Vanco - ID consulted - Continue to F/U on cultures - Daily CBC monitor #Hypotension 2/2 sepsis #NSTEMI - Low BP probably due to hypovolemia vs sedation vs infectious process - On Levophed gtt - Elevated troponin possibly a type II troponin leak - Cardiology consulted, appreciated recommendations - Maintain adequate perfusion - Continue rehydration with cont. IVF - Continue blood pressure monitor per protocol - Titrate pressors to maintain MAP above 65 - 2D echo pending - Continue to trend cardiac enzymes - On heparin SubQ #Hypernatremia-improved - NGT inserted, continue FWF - Monitor and replace electrolytes as needed - Continue to trend BMP #Acute Metabolic Encephalopathy #H/o Amyotrophic Lateral Sclerosis #Nonverbal at Baseline - Presented with AMS, per family patient is nonverbal at baseline but responsive - currently intubated and arousable on precedex gtt - CT head/Brain with no acute intracranial process - Titrate sedation for RASS goal of 0 to -2 - Daily SAT and SBT as tolerated - Avoid benzodiazepine to reduce the possibility of delirium - PRN analgesia for CPOT greater than 3 - Maintenance of sleep-wake cycle #Thrombocytopenia - Stable - Continue to trend plt - On heparin subQ - Monitor for s/s of any active bleeding #Protein Caloric Malnutrition - Albumin 2.7, Total protein 4.6 - NGT in place, enteral nutrition initiated - Nutrition consulted #Constipation - Noted on CXR and KUB - BR initiated #GI/DVT Prophylaxis - PPI- Pepcid - Heparin SubQ - SCDs to bilateral lower extremities while in bed #Advance Care Planning - Disease education data, care plan, diagnoses, and prognosis were discussed patient's , Carly Lopez, and patient daughter, Kaylee Warren, who translated for #[phone]. They reported that patient was following at [place] for his ALS and during recent hospitalization at [facility] they were told nothing else can be offered to patient at this time and patient was discharge home with home hospice and PO morphine. First hospice visit was on , however, patient became unresponsive yesterday and they brought in to the hospital. - Goal of care and code status were also addressed at that time. Family wants to wait for a couple days to see how patient respond to current treatment before making a decision. All questions and concerns were addressed at this time. Patient family acknowledged understanding and agreement with care plan. - Patient remains a FULL CODE status. The high probability of a clinically significant, sudden or life threatening deterioration of the [multiple] system(s) required my full and direct attention, intervention and personal management. The aggregate critical care time was [60] minutes. This time is in addition to time spent performing reported procedures but includes the following: [x] Data Review and interpretation [x] Patient assessment and monitoring of vital signs [x] Documentation [x] Medication orders and management Disposition Plan: ICU Total Time Spent with Patient (Minutes): 60 History Interval history: Patient seen and examined at the bedside. Intubated and on precedex gtt. Easily arousable with mild stimuli, but does not follow commands. Remains on on Levophed gtt. VIRGILIO overnight Hospitalist Physical - Constitutional Vitals: Temp Pulse Resp BP Pulse Ox 97.4 F L 58 L 14 99/67 98 04/04/22 12:00 04/04/22 12:00 04/04/22 12:00 04/04/22 12:00 04/04/22 12:00 General appearance: Present: no acute distress, cachectic, other (Intubated, easily arousable on precedex gtt) - EENT Eyes: Present: PERRL - Respiratory Respiratory effort: normal Respiratory: bilateral: rhonchi - Cardiovascular Rhythm: regular Heart Sounds: Present: S1 & S2 - Extremities Extremities: no ischemia, pulses intact, pulses symmetrical Peripheral Pulses: within normal limits - Abdominal General gastrointestinal: soft, non-distended, normal bowel sounds - Integumentary Integumentary: Present: warm, dry - Psychiatric Psychiatric: other (Intubated, easily arousable on precedex gtt) - Neurologic Neurologic: other (Intubated, easily arousable on precedex gtt. Nonpurposeful movement of BUE.) - Allied Health Allied health notes reviewed: nursing, case management HEART Score - HEART Score Troponin: Troponin T 0.048 ng/mL (0.00-0.029) H 04/02/22 19:39 Results - Labs CBC & Chem 7: 04/04/22 04:18 04/04/22 04:18 Labs: Laboratory Last Values WBC 11.8 K/mm3 (4.5-11.0) H 04/04/22 04:18 RBC 3.86 M/mm3 (3.65-5.03) 04/04/22 04:18 Hgb 12.0 gm/dl (11.8-15.2) 04/04/22 04:18 Hct 35.8 % (35.5-45.6) 04/04/22 04:18 MCV 93 fl (84-94) 04/04/22 04:18 MCH 31 pg (28-32) 04/04/22 04:18 MCHC 34 % (32-34) 04/04/22 04:18 RDW 14.2 % (13.2-15.2) 04/04/22 04:18 Plt Count 132 K/mm3 (140-440) L 04/04/22 04:18 Add Manual Diff Complete 04/02/22 19:39 Total Counted 100 04/02/22 19:39 Seg Neutrophils % Nuclear Plant Technical Advisor 04/02/22 19:39 Seg Neuts % (Manual) 94.0 % (40.0-70.0) H 04/02/22 19:39 Band Neutrophils % 0 % 04/02/22 19:39 Lymphocytes % (Manual) 1.0 % (13.4-35.0) L 04/02/22 19:39 Reactive Lymphs % (Man) 0 % 04/02/22 19:39 Monocytes % (Manual) 5.0 % (0.0-7.3) 04/02/22 19:39 Eosinophils % (Manual) 0 % (0.0-4.3) 04/02/22 19:39 Basophils % (Manual) 0 % (0.0-1.8) 04/02/22 19:39 Metamyelocytes % 0 % 04/02/22 19:39 Myelocytes % 0 % 04/02/22 19:39 Promyelocytes % 0 % 04/02/22 19:39 Blast Cells % 0 % 04/02/22 19:39 Nucleated RBC % Not Reportable 04/02/22 19:39 Seg Neutrophils # Man 13.4 K/mm3 (1.8-7.7) H 04/02/22 19:39 Band Neutrophils # 0.0 K/mm3 04/02/22 19:39 Lymphocytes # (Manual) 0.1 K/mm3 (1.2-5.4) L 04/02/22 19:39 Abs React Lymphs (Man) 0.0 K/mm3 04/02/22 19:39 Monocytes # (Manual) 0.7 K/mm3 (0.0-0.8) 04/02/22 19:39 Eosinophils # (Manual) 0.0 K/mm3 (0.0-0.4) 04/02/22 19:39 Basophils # (Manual) 0.0 K/mm3 (0.0-0.1) 04/02/22 19:39 Metamyelocytes # 0.0 K/mm3 04/02/22 19:39 Myelocytes # 0.0 K/mm3 04/02/22 19:39 Promyelocytes # 0.0 K/mm3 04/02/22 19:39 Blast Cells # 0.0 K/mm3 04/02/22 19:39 WBC Morphology Not Reportable 04/02/22 19:39 Hypersegmented Neuts Not Reportable 04/02/22 19:39 Hyposegmented Neuts Not Reportable 04/02/22 19:39 Hypogranular Neuts Not Reportable 04/02/22 19:39 Smudge Cells Not Reportable 04/02/22 19:39 Toxic Granulation Not Reportable 04/02/22 19:39 Toxic Vacuolation Not Reportable 04/02/22 19:39 Dohle Bodies Not Reportable 04/02/22 19:39 Pelger-Huet Anomaly Not Reportable 04/02/22 19:39 Terry Rods Not Reportable 04/02/22 19:39 Platelet Estimate Consistent w auto 04/02/22 19:39 Clumped Platelets Not Reportable 04/02/22 19:39 Plt Clumps, EDTA Not Reportable 04/02/22 19:39 Large Platelets Not Reportable 04/02/22 19:39 Giant Platelets Not Reportable 04/02/22 19:39 Platelet Satelliting Not Reportable 04/02/22 19:39 Plt Morphology Comment Not Reportable 04/02/22 19:39 RBC Morphology Not Reportable 04/02/22 19:39 Dimorphic RBCs Not Reportable 04/02/22 19:39 Polychromasia Not Reportable 04/02/22 19:39 Hypochromasia Not Reportable 04/02/22 19:39 Poikilocytosis Not Reportable 04/02/22 19:39 Anisocytosis 1+ 04/02/22 19:39 Microcytosis Not Reportable 04/02/22 19:39 Macrocytosis Not Reportable 04/02/22 19:39 Spherocytes Not Reportable 04/02/22 19:39 Pappenheimer Bodies Not Reportable 04/02/22 19:39 Sickle Cells Not Reportable 04/02/22 19:39 Target Cells Not Reportable 04/02/22 19:39 Tear Drop Cells Not Reportable 04/02/22 19:39 Ovalocytes Not Reportable 04/02/22 19:39 Helmet Cells Not Reportable 04/02/22 19:39 [place] Bodies Not Reportable 04/02/22 19:39 Wilson Rings Not Reportable 04/02/22 19:39 Cheikh Cells Not Reportable 04/02/22 19:39 Bite Cells Not Reportable 04/02/22 19:39 Crenated Cell Not Reportable 04/02/22 19:39 Elliptocytes Not Reportable 04/02/22 19:39 Acanthocytes (Spur) Not Reportable 04/02/22 19:39 Rouleaux Not Reportable 04/02/22 19:39 Hemoglobin C Crystals Not Reportable 04/02/22 19:39 Schistocytes Not Reportable 04/02/22 19:39 Malaria parasites Not Reportable 04/02/22 19:39 [place] Bodies Not Reportable 04/02/22 19:39 Hem Pathologist Commnt No 04/02/22 19:39 PT 15.9 Sec. (12.2-14.9) H 04/02/22 19:39 INR 1.14 (0.87-1.13) H 04/02/22 19:39 APTT 28.6 Sec. (24.2-36.6) 04/02/22 19:39 ABG pH 7.517 pH Units (7.350-7.450) H 04/04/22 05:50 ABG pCO2 37.7 mm Hg 04/04/22 05:50 ABG pO2 115.5 mm Hg (80.0-90.0) H 04/04/22 05:50 ABG HCO3 29.9 mmol/L (20.0-26.0) H 04/04/22 05:50 ABG O2 Saturation 98.4 % (95.0-99.0) 04/04/22 05:50 ABG O2 Content 17.0 (0.0-44) 04/04/22 05:50 ABG Base Excess 6.7 mmol/L (-2.0-3.0) H 04/04/22 05:50 ABG Hemoglobin 12.3 gm/dl (14.0-18.0) L 04/04/22 05:50 ABG Carboxyhemoglobin 0.9 % (0.0-5.0) 04/04/22 05:50 ABG Methemoglobin 0.4 % (0.0-1.5) 04/04/22 05:50 Oxyhemoglobin 97.1 % (95.0-99.0) 04/04/22 05:50 FiO2 50 % 04/04/22 05:50 Sodium 143 mmol/L (137-145) 04/04/22 04:18 Potassium 3.5 mmol/L (3.6-5.0) L 04/04/22 04:18 Chloride 105.1 mmol/L (98-107) 04/04/22 04:18 Carbon Dioxide 31 mmol/L (22-30) H 04/04/22 04:18 Anion Gap 10 mmol/L 04/04/22 04:18 BUN 13 mg/dL (9-20) 04/04/22 04:18 Creatinine 0.3 mg/dL (0.8-1.3) L 04/04/22 04:18 Estimated GFR > 60 ml/min 04/04/22 04:18 BUN/Creatinine Ratio 43 % 04/04/22 04:18 Glucose 153 mg/dL (75-100) H 04/04/22 04:18 Lactic Acid 1.90 mmol/L (0.7-2.0) 04/02/22 19:39 Calcium 9.2 mg/dL (8.4-10.2) 04/04/22 04:18 Phosphorus 1.40 mg/dL (2.5-4.5) L 04/04/22 04:18 Magnesium 1.50 mg/dL (1.7-2.3) L 04/04/22 04:18 Total Bilirubin 0.80 mg/dL (0.1-1.2) 04/02/22 19:39 AST 15 units/L (5-40) 04/02/22 19:39 ALT 9 units/L (7-56) 04/02/22 19:39 Alkaline Phosphatase 43 units/L (35-129) 04/02/22 19:39 Troponin T 0.048 ng/mL (0.00-0.029) H 04/02/22 19:39 C-Reactive Protein 31.60 mg/dL (0.00-1.30) H 04/04/22 04:18 Total Protein 4.6 g/dL (6.3-8.2) L 04/02/22 19:39 Albumin 2.7 g/dL (3.9-5) L 04/02/22 19:39 Albumin/Globulin Ratio 1.4 % 04/02/22 19:39 Triglycerides 80 mg/dL (2-149) 04/02/22 19:39 Cholesterol 94 mg/dL (50-199) 04/02/22 19:39 LDL Cholesterol Direct 27 mg/dL (50-130) L 04/02/22 19:39 HDL Cholesterol 47 mg/dL (40-59) 04/02/22 19:39 Cholesterol/HDL Ratio 2.00 % 04/02/22 19:39 Urine Color Yellow (Yellow) 04/02/22 Unknown Urine Turbidity Clear (Clear) 04/02/22 Unknown Urine pH 6.0 (5.0-7.0) 04/02/22 Unknown Ur Specific [place] 1.015 (1.003-1.030) 04/02/22 Unknown Urine Protein 30 mg/dl mg/dL (Negative) 04/02/22 Unknown Urine Glucose (UA) Neg mg/dL (Negative) 04/02/22 Unknown Urine Ketones 20 mg/dL (Negative) 04/02/22 Unknown Urine Blood Neg (Negative) 04/02/22 Unknown Urine Nitrite Neg (Negative) 04/02/22 Unknown Urine Bilirubin Neg (Negative) 04/02/22 Unknown Urine Urobilinogen < 2.0 mg/dL (<2.0) 04/02/22 Unknown Ur Leukocyte Esterase Neg (Negative) 04/02/22 Unknown Urine WBC (Auto) 6.0 /HPF (0.0-6.0) 04/02/22 Unknown Urine RBC (Auto) 2.0 /HPF (0.0-6.0) 04/02/22 Unknown U Epithel Cells (Auto) < 1.0 /HPF (0-13.0) 04/02/22 Unknown Urine Bacteria (Auto) 1+ /HPF (Negative) 04/02/22 Unknown Urine Mucus Few /HPF 04/02/22 Unknown Microbiology: Microbiology 04/02/22 19:39 Peripheral/Venous Blood Culture - Preliminary 04/02/22 19:39 Peripheral/Venous Blood Culture - Preliminary NO GROWTH AFTER 24 HOURS Perez/IV: Voiding Method Indwelling Catheter Active Medications - Current Medications Current Medications: Generic Name Dose Route Start Last Admin Trade Name Freq PRN Reason Stop Dose Admin Acetaminophen 650 mg 04/02/22 23:53 Acetaminophen 325 Mg Tab PO Q6H PRN Pain MILD(1-3)/Fever >100.5/FAITH Bisacodyl 10 mg 04/03/22 15:00 04/03/22 16:01 Bisacodyl [address] 10 mg ONCE SEGUNDO Administration Docusate Sodium 100 mg 04/03/22 15:00 04/04/22 09:58 Docusate Sodium 100 Mg/10 Ml Oral Liqd PO 100 mg BID SEGUNDO Administration Famotidine 20 mg 04/03/22 10:00 04/04/22 09:58 Famotidine 20 Mg/2 Ml Inj IV 20 mg QDAY SEGUNDO Administration Heparin Sodium (Porcine) 5,000 unit 04/03/22 06:00 04/04/22 06:13 Heparin 5,000 Unit/1 Ml Vial SUB-Q 5,000 unit Q8HR SEGUNDO Administration NORepinephrine/NS 8 MG-250 ML 8 mg in 250 mls @ 3.75 mls/hr 04/02/22 22:00 04/04/22 06:41 Norepinephrine/Ns 8 Mg-250 Ml (Double Conc) IV 6 mcg/min TITRATE SEGUNDO 11.25 mls/hr Titration Protocol 2 MCG/MIN Vancomycin HCl 750 mg/ Sodium 265 mls @ 166.667 mls/hr 04/03/22 18:00 06:14 Chloride IV 166.667 mls/hr Q12H SEGUNDO Administration Dexmedetomidine HCl 400 mcg/ 104 mls @ 2.434 mls/hr 04/03/22 07:00 04/04/22 11:00 Sodium Chloride IV 0 mcg/kg/hr TITRATE SEGUNDO 0 mls/hr Titration Protocol 0.2 MCG/KG/HR Cefepime HCl 2 gm in 100 mls @ 200 mls/hr 04/03/22 18:00 04/04/22 06:13 Cefepime/Ns 2 Gm/100 Ml IV 200 mls/hr Q12H SEGUNDO Administration Protocol Potassium Phosphate 30 mmol/ 510 mls @ 85 mls/hr 04/04/22 09:00 04/04/22 09:58 Sodium Chloride IV 04/04/22 14:59 85 mls/hr ONCE ONE Administration Magnesium Sulfate 4 gm in 100 mls @ 25 mls/hr 04/04/22 09:00 04/04/22 09:57 Magnesium Sulfate 4gm/100ml IV 04/04/22 12:59 25 mls/hr ONCE ONE Administration Magnesium Hydroxide 30 ml 04/02/22 23:53 Magnesium Hydroxide (Mom) Oral Liqd Udc PO Q4H PRN Constipation Midazolam HCl 2 mg 04/02/22 22:01 04/04/22 08:10 Midazolam 2 Mg/2 Ml Inj IV 2 mg Q10MIN PRN Administration Sedation Ondansetron HCl 4 mg 04/02/22 23:53 Ondansetron 4 Mg/2 Ml Inj IV Q8H PRN Nausea And Vomiting Senna 17.6 mg 04/03/22 22:00 04/04/22 09:58 Sennosides Oral Liqd 8.8 Mg/5 Ml Oral Liqd PO 17.6 mg Q12HR SEGUNDO Administration Sodium Chloride 10 ml 04/03/22 10:00 04/04/22 09:59 Sodium Chloride 0.9% 10 Ml Flush Syringe IV 10 ml BID SEGUNDO Administration Sodium Chloride 10 ml 04/02/22 23:53 Sodium Chloride 0.9% 10 Ml Flush Syringe IV PRN PRN LINE FLUSH <DIXIE BROWN - Last Filed: 04/05/22 07:42> Assessment and Plan Assessment and plan: I saw and evaluated the patient. I agree with the findings and the plan of care as documented in the Nurse Practitioner's~note, with the following corrections and additions. Hospitalist Physical - Constitutional Vitals: Temp Pulse Resp BP Pulse Ox 99.8 F H 94 H 17 121/82 89 04/05/22 03:19 04/05/22 07:24 04/05/22 07:20 04/05/22 07:20 04/05/22 07:20 HEART Score - HEART Score Troponin: Troponin T 0.048 ng/mL (0.00-0.029) H 04/02/22 19:39 Results - Labs CBC & Chem 7: 04/05/22 Unknown 04/05/22 02:50 Labs: Laboratory Last Values WBC 8.0 K/mm3 (4.5-11.0) 04/05/22 Unknown RBC 3.55 M/mm3 (3.65-5.03) L 04/05/22 Unknown Hgb 11.1 gm/dl (11.8-15.2) L 04/05/22 Unknown Hct 33.2 % (35.5-45.6) L 04/05/22 Unknown MCV 93 fl (84-94) 04/05/22 Unknown MCH 31 pg (28-32) 04/05/22 Unknown MCHC 34 % (32-34) 04/05/22 Unknown RDW 14.3 % (13.2-15.2) 04/05/22 Unknown Plt Count 113 K/mm3 (140-440) L 04/05/22 Unknown Add Manual Diff Complete 04/02/22 19:39 Total Counted 100 04/02/22 19:39 Seg Neutrophils % Nuclear Plant Technical Advisor 04/02/22 19:39 Seg Neuts % (Manual) 94.0 % (40.0-70.0) H 04/02/22 19:39 Band Neutrophils % 0 % 04/02/22 19:39 Lymphocytes % (Manual) 1.0 % (13.4-35.0) L 04/02/22 19:39 Reactive Lymphs % (Man) 0 % 04/02/22 19:39 Monocytes % (Manual) 5.0 % (0.0-7.3) 04/02/22 19:39 Eosinophils % (Manual) 0 % (0.0-4.3) 04/02/22 19:39 Basophils % (Manual) 0 % (0.0-1.8) 04/02/22 19:39 Metamyelocytes % 0 % 04/02/22 19:39 Myelocytes % 0 % 04/02/22 19:39 Promyelocytes % 0 % 04/02/22 19:39 Blast Cells % 0 % 04/02/22 19:39 Nucleated RBC % Not Reportable 04/02/22 19:39 Seg Neutrophils # Man 13.4 K/mm3 (1.8-7.7) H 04/02/22 19:39 Band Neutrophils # 0.0 K/mm3 04/02/22 19:39 Lymphocytes # (Manual) 0.1 K/mm3 (1.2-5.4) L 04/02/22 19:39 Abs React Lymphs (Man) 0.0 K/mm3 04/02/22 19:39 Monocytes # (Manual) 0.7 K/mm3 (0.0-0.8) 04/02/22 19:39 Eosinophils # (Manual) 0.0 K/mm3 (0.0-0.4) 04/02/22 19:39 Basophils # (Manual) 0.0 K/mm3 (0.0-0.1) 04/02/22 19:39 Metamyelocytes # 0.0 K/mm3 04/02/22 19:39 Myelocytes # 0.0 K/mm3 04/02/22 19:39 Promyelocytes # 0.0 K/mm3 04/02/22 19:39 Blast Cells # 0.0 K/mm3 04/02/22 19:39 WBC Morphology Not Reportable 04/02/22 19:39 Hypersegmented Neuts Not Reportable 04/02/22 19:39 Hyposegmented Neuts Not Reportable 04/02/22 19:39 Hypogranular Neuts Not Reportable 04/02/22 19:39 Smudge Cells Not Reportable 04/02/22 19:39 Toxic Granulation Not Reportable 04/02/22 19:39 Toxic Vacuolation Not Reportable 04/02/22 19:39 Dohle Bodies Not Reportable 04/02/22 19:39 Pelger-Huet Anomaly Not Reportable 04/02/22 19:39 Terry Rods Not Reportable 04/02/22 19:39 Platelet Estimate Consistent w auto 04/02/22 19:39 Clumped Platelets Not Reportable 04/02/22 19:39 Plt Clumps, EDTA Not Reportable 04/02/22 19:39 Large Platelets Not Reportable 04/02/22 19:39 Giant Platelets Not Reportable 04/02/22 19:39 Platelet Satelliting Not Reportable 04/02/22 19:39 Plt Morphology Comment Not Reportable 04/02/22 19:39 RBC Morphology Not Reportable 04/02/22 19:39 Dimorphic RBCs Not Reportable 04/02/22 19:39 Polychromasia Not Reportable 04/02/22 19:39 Hypochromasia Not Reportable 04/02/22 19:39 Poikilocytosis Not Reportable 04/02/22 19:39 Anisocytosis 1+ 04/02/22 19:39 Microcytosis Not Reportable 04/02/22 19:39 Macrocytosis Not Reportable 04/02/22 19:39 Spherocytes Not Reportable 04/02/22 19:39 Pappenheimer Bodies Not Reportable 04/02/22 19:39 Sickle Cells Not Reportable 04/02/22 19:39 Target Cells Not Reportable 04/02/22 19:39 Tear Drop Cells Not Reportable 04/02/22 19:39 Ovalocytes Not Reportable 04/02/22 19:39 Helmet Cells Not Reportable 04/02/22 19:39 [place]ric[place] Bodies Not Reportable 04/02/22 19:39 [place] Rings Not Reportable 04/02/22 19:39 Cheikh Cells Not Reportable 04/02/22 19:39 Bite Cells Not Reportable 04/02/22 19:39 Crenated Cell Not Reportable 04/02/22 19:39 Elliptocytes Not Reportable 04/02/22 19:39 Acanthocytes (Spur) Not Reportable 04/02/22 19:39 Rouleaux Not Reportable 04/02/22 19:39 Hemoglobin C Crystals Not Reportable 04/02/22 19:39 Schistocytes Not Reportable 04/02/22 19:39 Malaria parasites Not Reportable 04/02/22 19:39 [place] Bodies Not Reportable 04/02/22 19:39 Hem Pathologist Commnt No 04/02/22 19:39 PT 15.9 Sec. (12.2-14.9) H 04/02/22 19:39 INR 1.14 (0.87-1.13) H 04/02/22 19:39 APTT 28.6 Sec. (24.2-36.6) 04/02/22 19:39 ABG pH 7.455 pH Units (7.350-7.450) H 04/05/22 05:25 ABG pCO2 44.3 mm Hg 04/05/22 05:25 ABG pO2 50.7 mm Hg (80.0-90.0) L 04/05/22 05:25 ABG HCO3 30.5 mmol/L (20.0-26.0) H 04/05/22 05:25 ABG O2 Saturation 89.4 % (95.0-99.0) L 04/05/22 05:25 ABG O2 Content 14.6 (0.0-44) 04/05/22 05:25 ABG Base Excess 5.9 mmol/L (-2.0-3.0) H 04/05/22 05:25 ABG Hemoglobin 11.8 gm/dl (14.0-18.0) L 04/05/22 05:25 ABG Carboxyhemoglobin 1.0 % (0.0-5.0) 04/05/22 05:25 ABG Methemoglobin 0.3 % (0.0-1.5) 04/05/22 05:25 Oxyhemoglobin 88.2 % (95.0-99.0) L 04/05/22 05:25 FiO2 50 % 04/05/22 05:25 Sodium 142 mmol/L (137-145) 04/05/22 02:50 Potassium 3.7 mmol/L (3.6-5.0) 04/05/22 02:50 Chloride 104.0 mmol/L (98-107) 04/05/22 02:50 Carbon Dioxide 32 mmol/L (22-30) H 04/05/22 02:50 Anion Gap 10 mmol/L 04/05/22 02:50 BUN 9 mg/dL (9-20) 04/05/22 02:50 Creatinine 0.2 mg/dL (0.8-1.3) L 04/05/22 02:50 Estimated GFR > 60 ml/min 04/05/22 02:50 BUN/Creatinine Ratio 45 % 04/05/22 02:50 Glucose 110 mg/dL (75-100) H 04/05/22 02:50 Lactic Acid 1.90 mmol/L (0.7-2.0) 04/02/22 19:39 Calcium 7.9 mg/dL (8.4-10.2) L 04/05/22 02:50 Phosphorus 3.50 mg/dL (2.5-4.5) D 04/05/22 02:50 Magnesium 2.00 mg/dL (1.7-2.3) 04/05/22 02:50 Total Bilirubin 0.80 mg/dL (0.1-1.2) 04/02/22 19:39 AST 15 units/L (5-40) 04/02/22 19:39 ALT 9 units/L (7-56) 04/02/22 19:39 Alkaline Phosphatase 43 units/L (35-129) 04/02/22 19:39 Troponin T 0.048 ng/mL (0.00-0.029) H 04/02/22 19:39 C-Reactive Protein 31.60 mg/dL (0.00-1.30) H 04/04/22 04:18 Total Protein 4.6 g/dL (6.3-8.2) L 04/02/22 19:39 Albumin 2.7 g/dL (3.9-5) L 04/02/22 19:39 Albumin/Globulin Ratio 1.4 % 04/02/22 19:39 Triglycerides 80 mg/dL (2-149) 04/02/22 19:39 Cholesterol 94 mg/dL (50-199) 04/02/22 19:39 LDL Cholesterol Direct 27 mg/dL (50-130) L 04/02/22 19:39 HDL Cholesterol 47 mg/dL (40-59) 04/02/22 19:39 Cholesterol/HDL Ratio 2.00 % 04/02/22 19:39 Procalcitonin 0.08 ng/mL (<0.15) 04/04/22 04:18 Urine Color Yellow (Yellow) 04/02/22 Unknown Urine Turbidity Clear (Clear) 04/02/22 Unknown Urine pH 6.0 (5.0-7.0) 04/02/22 Unknown Ur Specific [place] 1.015 (1.003-1.030) 04/02/22 Unknown Urine Protein 30 mg/dl mg/dL (Negative) 04/02/22 Unknown Urine Glucose (UA) Neg mg/dL (Negative) 04/02/22 Unknown Urine Ketones 20 mg/dL (Negative) 04/02/22 Unknown Urine Blood Neg (Negative) 04/02/22 Unknown Urine Nitrite Neg (Negative) 04/02/22 Unknown Urine Bilirubin Neg (Negative) 04/02/22 Unknown Urine Urobilinogen < 2.0 mg/dL (<2.0) 04/02/22 Unknown Ur Leukocyte Esterase Neg (Negative) 04/02/22 Unknown Urine WBC (Auto) 6.0 /HPF (0.0-6.0) 04/02/22 Unknown Urine RBC (Auto) 2.0 /HPF (0.0-6.0) 04/02/22 Unknown U Epithel Cells (Auto) < 1.0 /HPF (0-13.0) 04/02/22 Unknown Urine Bacteria (Auto) 1+ /HPF (Negative) 04/02/22 Unknown Urine Mucus Few /HPF 04/02/22 Unknown Microbiology: Microbiology 04/02/22 19:39 Peripheral/Venous Blood Culture - Preliminary NO GROWTH AFTER 48 HOURS 04/02/22 19:16 Tracheal Aspirate Sputum Culture - Preliminary Gram Negative Deejay 04/02/22 19:39 Peripheral/Venous Blood Culture - Preliminary Perez/IV: Voiding Method Indwelling Catheter Active Medications - Current Medications Current Medications: Generic Name Dose Route Start Last Admin Trade Name Freq PRN Reason Stop Dose Admin Acetaminophen 650 mg 04/02/22 23:53 Acetaminophen 325 Mg Tab PO Q6H PRN Pain MILD(1-3)/Fever >100.5/FAITH Bisacodyl 10 mg 04/03/22 15:00 04/03/22 16:01 Bisacodyl [address] 10 mg ONCE SEGUNDO Administration Docusate Sodium 100 mg 04/03/22 15:00 04/04/22 22:54 Docusate Sodium 100 Mg/10 Ml Oral Liqd PO 100 mg BID SEGUNDO Administration Famotidine 20 mg 04/03/22 10:00 04/04/22 09:58 Famotidine 20 Mg/2 Ml Inj IV 20 mg QDAY SEGUNDO Administration Fentanyl 50 mcg 04/04/22 15:56 04/04/22 16:43 Fentanyl 100 Mcg/2 Ml Inj IV 50 mcg Q2HR PRN Administration For CPOT of greater than 2 Heparin Sodium (Porcine) 5,000 unit 04/03/22 06:00 04/05/22 06:41 Heparin 5,000 Unit/1 Ml Vial SUB-Q 5,000 unit Q8HR SEGUNDO Administration NORepinephrine/NS 8 MG-250 ML 8 mg in 250 mls @ 3.75 mls/hr 04/02/22 22:00 04/05/22 02:50 Norepinephrine/Ns 8 Mg-250 Ml (Double Conc) IV 0 mcg/min TITRATE SEGUNDO 0 mls/hr Titration Protocol 2 MCG/MIN Vancomycin HCl 750 mg/ Sodium 265 mls @ 166.667 mls/hr 04/03/22 18:00 04/05/22 06:41 Chloride IV 166.667 mls/hr Q12H SEGUNDO Administration Dexmedetomidine HCl 400 mcg/ 104 mls @ 2.434 mls/hr 04/03/22 07:00 04/05/22 03:50 Sodium Chloride IV 0.9 mcg/kg/hr TITRATE SEGUNDO 10.951 mls/hr Administration Protocol 0.2 MCG/KG/HR Cefepime HCl 2 gm in 100 mls @ 200 mls/hr 04/03/22 18:00 04/05/22 06:41 Cefepime/Ns 2 Gm/100 Ml IV 200 mls/hr Q12H SEGUNDO Administration Protocol Magnesium Hydroxide 30 ml 04/02/22 23:53 Magnesium Hydroxide (Mom) Oral Liqd Udc PO Q4H PRN Constipation Ondansetron HCl 4 mg 04/02/22 23:53 Ondansetron 4 Mg/2 Ml Inj IV Q8H PRN Nausea And Vomiting Senna 17.6 mg 04/03/22 22:00 04/04/22 22:55 Sennosides Oral Liqd 8.8 Mg/5 Ml Oral Liqd PO 17.6 mg Q12HR SEGUNDO Administration Sodium Chloride 10 ml 04/03/22 10:00 04/04/22 22:55 Sodium Chloride 0.9% 10 Ml Flush Syringe IV 10 ml BID SEGUNDO Administration Sodium Chloride 10 ml 04/02/22 23:53 Sodium Chloride 0.9% 10 Ml Flush Syringe IV PRN PRN LINE FLUSH Nutrition/Malnutrition Assess - Dietary Evaluation Nutrition/Malnutrition Findings: Nutrition Notes Start: 04/04/22 13:13 Freq: Status: Active Protocol: Document 04/04/22 13:13 RS (Rec: 04/04/22 13:34 RS [email or web address]) Nutrition Notes Need for Assessment generated from: MD Order Initial or Follow up Assessment Current Diagnosis Respiratory Failure Other Pertinent Diagnosis Community-acquired pneu, ALS Labs/Tests K+: 3.5 CO2:31 Cr: 0.3 Glu:153 PO4: 1.4 M.5 Pertinent Medications Norepinephrine NS at 11.25mL/ hr Height 5 ft 4.8 in Weight 46.8 kg [place] Body Weight (kg) 61.27 BMI 17.2 Intake Prior to Admission Poor Weight change and time frame ENRRIQUE wt hx Weight Status Underweight Subjective/Other Information MD consult for TF. Pt has hx of ALS, family reports pt has difficulty chewing/swallowing foods. Pt is intubated. Pt noted some mild muscle wasting in temporal region, protruding clavical bone. Burn Absent Trauma Absent GI Symptoms Constipation Food Allergy No Current % PO Negligible Minimum of two criteria No Muscle Mass Mild Depletion (non-severe) #1 Nutrition Diagnosis Inadequate oral intake Etiology community acquired bronchopneumonia As Evidenced by Signs and Symptoms pt intubated and cannot consume food PO Is patient on ventilator? Yes Is Patient Ambulatory and/or Out of Bed No REE-([facility]-confined to bed) 1476.744 Kcal/Kg value to use for calculation 35 Approximate Energy Requirements Using 1638 kcal/Kg Calculation Used for Recommendations Kcal/kg Additional Notes PRO needs: 56-94g/day (>1.2-2g /kg BW/day) Fluid needs: 1mL/kcal or per MD Nutrition Intervention Change Diet Order: Start TF Nutrition Support: Vital AF 1.2 at 60mL/hr. Free water flush of 125mL q4hr Kcal 1,728 Protein (gm) 108 Fluid (mL) 1,168 Goal #1 TF initiation/tolerance Goal #2 Pt will meet at least 75% of kcal/PRO needs via TF Goal #3 Wt gain/maintenance Anticipated Discharge Needs: ENRRIQUE at this time Follow-Up By: 04/06/22 Additional Comments F/U for TF tolerance/ initiation, labs
[2022-04-04] MEDS: NORepinephrine/NS 8 MG-250 ML 8 MG/250 ML INFUS..BTL IV SCH (16:07)
[2022-04-04] MEDS: fentaNYL 100 MCG/2 ML INJ IV PRN (16:43)
--- NOTE | 2022-04-04 19:37 | Progress Note ---
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 Discussed goals of care with the for 20 minutes using the medical translation line. Patient's RN was present There are 2 options- trach, PEG , discharge to a shelter with ventilator capabilities or compassionate extubation. We will continue to treat him aggressively and optimize his respiratory status. She understands that if he is extubated, he will not survive. Though he is awake and alert, he is apneic when placed on SBT I explained the natural course of ALS and at this time there are no definitive therapeutic options available. She understands that . She says that they were told the same thing at [place] and [facility]. She also says that she has researched the disease. She acknowledges that it is a hard decision. She will speak with her children and her in laws -Titrate supplemental oxygen to keep SpO2 89-92% -VAP bundle addressed, aspiration precautions HOB >40 -Lung protective strategies, -CXR, ABG as clinically indicated -Daily assessment for readiness to wean. Daily SBT -On Precedex for agitation management -Monitoring renal function, hemodynamics and electrolyte profile -Replete electrolytes as clinically indicated -Empiric antibiotics therapy for HAP, ID following -Accuchecks with glycemic control. target blood glucose 140-180 mg/dL. Avoid hypoglycemia -Confirm OGT position and initiate enteric nutritional support -VTE prophylaxis- Heparin -Avoid nephrotoxins and renally dose all medications -Stress ulcer prophylaxis- start famotidine -Mobility, frequent turning, off loading per facility protocol to prevent pressure ulcers -Maintain sleep wake cycle, avoid benzodiazepines. -Limit delirium CONDITION:CRITICAL PROGNOSIS: GUARDED CODE STATUS; FULL CODE The high probability of a clinically significant, sudden or life threatening deterioration of the respiratory, cardiovascular, neurology system required my full and direct attention, intervention and personal management. The aggregate critical care time was [35] minutes. 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 Vitals, labs, medications, chart and imaging facundo hardy. Discussed with respiratory and nursing care staff. No adverse overnight events. More awake and alert, tracks voice. No reported fevers, blood pressure acceptable range. Objective - Exam Narrative Exam: General appearance: appears uncomfortable, other (orally intubated, on full MVS- riding set vent rate) Eyes: non-icteric ENT: oropharynx moist Neck: supple, no lymphadenopathy, no JVD, RIJ CVL Effort: mildly labored Ascultation: Bilateral: diminished breath sounds (right lung), rhonchi Cardiovascular: regular rate and rhythm, other (S1,S2) Gastrointestinal: normoactive bowel sounds, soft, non-tender Extremities: no cyanosis, no edema, pink and warm, pulses normal pupils equal and round anxious Vital Signs - 12hr 04/04/22 04/04/22 04/04/22 07:40 07:50 08:00 Temperature 97.4 F L Pulse Rate 75 91 H 57 L Pulse Rate [ 60 From Monitor] Respiratory 11 L 13 12 Rate Blood Pressure 99/67 108/73 103/69 O2 Sat by Pulse 94 90 98 Oximetry 04/04/22 04/04/22 04/04/22 08:10 08:20 08:30 Temperature Pulse Rate 95 H 85 74 Pulse Rate [ From Monitor] Respiratory 11 L 12 12 Rate Blood Pressure 102/69 99/62 97/66 O2 Sat by Pulse 92 90 Oximetry 04/04/22 04/04/22 04/04/22 08:40 08:50 09:00 Temperature Pulse Rate 93 H 75 70 Pulse Rate [ From Monitor] Respiratory 13 12 13 Rate Blood Pressure 97/66 101/71 91/61 O2 Sat by Pulse 89 93 Oximetry 04/04/22 04/04/22 04/04/22 09:10 09:20 09:30 Temperature Pulse Rate 68 64 61 Pulse Rate [ From Monitor] Respiratory 12 12 12 Rate Blood Pressure 91/61 93/65 89/60 O2 Sat by Pulse 92 94 Oximetry 04/04/22 04/04/22 04/04/22 09:40 09:50 10:00 Temperature Pulse Rate 61 59 L 58 L Pulse Rate [ From Monitor] Respiratory 12 12 12 Rate Blood Pressure 89/60 93/64 100/68 O2 Sat by Pulse 96 97 97 Oximetry 04/04/22 04/04/22 04/04/22 10:10 10:20 10:30 Temperature Pulse Rate 56 L 56 L 56 L Pulse Rate [ From Monitor] Respiratory 12 12 12 Rate Blood Pressure 100/68 101/67 103/69 O2 Sat by Pulse 98 98 Oximetry 04/04/22 04/04/22 04/04/22 10:40 10:50 11:00 Temperature Pulse Rate 55 L 61 58 L Pulse Rate [ From Monitor] Respiratory 12 14 14 Rate Blood Pressure 103/69 102/70 102/70 O2 Sat by Pulse 98 98 97 Oximetry 04/04/22 04/04/22 04/04/22 11:10 11:20 11:30 Temperature Pulse Rate 58 L 58 L 60 Pulse Rate [ From Monitor] Respiratory 14 14 14 Rate Blood Pressure 105/72 102/72 O2 Sat by Pulse 96 96 95 Oximetry 04/04/22 04/04/22 04/04/22 11:40 11:50 12:00 Temperature 97.4 F L Pulse Rate 60 57 L 57 L Pulse Rate [ 58 L From Monitor] Respiratory 14 14 14 Rate Blood Pressure 102/72 101/69 99/67 O2 Sat by Pulse 95 95 98 Oximetry 04/04/22 04/04/22 04/04/22 12:10 12:20 12:30 Temperature Pulse Rate 60 59 L 58 L Pulse Rate [ From Monitor] Respiratory 14 14 14 Rate Blood Pressure 99/67 104/70 99/69 O2 Sat by Pulse 97 97 Oximetry 04/04/22 04/04/22 04/04/22 12:40 12:50 13:00 Temperature Pulse Rate 59 L 62 66 Pulse Rate [ From Monitor] Respiratory 14 15 14 Rate Blood Pressure 99/69 98/68 95/66 O2 Sat by Pulse 97 97 98 Oximetry 04/04/22 04/04/22 04/04/22 13:10 13:20 13:30 Temperature Pulse Rate 66 73 65 Pulse Rate [ From Monitor] Respiratory 13 14 14 Rate Blood Pressure 95/66 98/65 94/63 O2 Sat by Pulse 95 96 Oximetry 04/04/22 04/04/22 04/04/22 13:40 13:50 14:00 Temperature Pulse Rate 72 76 72 Pulse Rate [ From Monitor] Respiratory 14 14 14 Rate Blood Pressure 98/65 95/62 99/68 O2 Sat by Pulse 96 95 Oximetry 04/04/22 04/04/22 04/04/22 14:10 14:20 14:30 Temperature Pulse Rate 76 81 85 Pulse Rate [ From Monitor] Respiratory 15 14 14 Rate Blood Pressure 95/62 102/70 101/71 O2 Sat by Pulse 95 96 96 Oximetry 04/04/22 04/04/22 04/04/22 14:40 14:50 15:00 Temperature Pulse Rate 88 89 87 Pulse Rate [ From Monitor] Respiratory 14 14 14 Rate Blood Pressure 99/68 105/75 99/69 O2 Sat by Pulse 96 95 Oximetry 04/04/22 04/04/22 04/04/22 15:10 15:20 15:30 Temperature Pulse Rate 86 93 H 92 H Pulse Rate [ From Monitor] Respiratory 14 14 14 Rate Blood Pressure 99/69 100/71 107/74 O2 Sat by Pulse 95 95 97 Oximetry 04/04/22 04/04/22 04/04/22 15:40 15:48 15:50 Temperature Pulse Rate 92 H 93 H 96 H Pulse Rate [ 93 H From Monitor] Respiratory 14 16 14 Rate Blood Pressure 107/74 98/75 O2 Sat by Pulse 96 95 96 Oximetry 04/04/22 04/04/22 04/04/22 16:00 16:10 16:20 Temperature 97.9 F Pulse Rate 90 97 H 100 H Pulse Rate [ From Monitor] Respiratory 14 17 11 L Rate Blood Pressure 107/73 107/74 111/78 O2 Sat by Pulse 93 93 Oximetry 04/04/22 04/04/22 04/04/22 16:30 16:40 16:50 Temperature Pulse Rate 104 H 110 H 89 Pulse Rate [ From Monitor] Respiratory 14 16 14 Rate Blood Pressure 117/83 117/83 111/75 O2 Sat by Pulse 94 91 87 Oximetry 04/04/22 04/04/22 04/04/22 17:00 17:10 17:20 Temperature Pulse Rate 110 H 105 H 101 H Pulse Rate [ From Monitor] Respiratory 15 15 15 Rate Blood Pressure 111/75 121/92 112/82 O2 Sat by Pulse 97 93 90 Oximetry 04/04/22 04/04/22 04/04/22 17:30 17:40 17:50 Temperature Pulse Rate 114 H 117 H 112 H Pulse Rate [ From Monitor] Respiratory 16 14 15 Rate Blood Pressure 130/88 121/92 101/65 O2 Sat by Pulse 90 89 88 Oximetry 04/04/22 18:00 Temperature Pulse Rate 107 H Pulse Rate [ From Monitor] Respiratory 16 Rate Blood Pressure 101/65 O2 Sat by Pulse 89 Oximetry CBC and BMP: 04/07/22 03:51 04/07/22 03:51 ABG, PT/INR, D-dimer: ABG ABG pH 7.517 pH Units (7.350-7.450) H 04/04/22 05:50 ABG pCO2 37.7 mm Hg 04/04/22 05:50 ABG pO2 115.5 mm Hg (80.0-90.0) H 04/04/22 05:50 ABG O2 Saturation 98.4 % (95.0-99.0) 04/04/22 05:50 PT/INR, D-dimer PT 15.9 Sec. (12.2-14.9) H 04/02/22 19:39 INR 1.14 (0.87-1.13) H 04/02/22 19:39 Abnormal lab findings: Abnormal Labs 04/02/22 04/02/22 04/02/22 19:39 19:39 19:39 WBC 14.3 H MCV 96 H Plt Count 104 L Seg Neuts % (Manual) 94.0 H Lymphocytes % (Manual) 1.0 L Seg Neutrophils # Man 13.4 H Lymphocytes # (Manual) 0.1 L PT 15.9 H INR 1.14 H ABG pH ABG pO2 ABG HCO3 ABG O2 Saturation ABG Base Excess ABG Hemoglobin Oxyhemoglobin Sodium 151 H Potassium Carbon Dioxide Creatinine 0.5 L Glucose Calcium 8.2 L Phosphorus Magnesium 1.60 L Troponin T 0.048 H C-Reactive Protein Total Protein 4.6 L Albumin 2.7 L LDL Cholesterol Direct 27 L 05/27/22 05/28/22 05/28/22 19:42 05:14 06:30 WBC MCV Plt Count Seg Neuts % (Manual) Lymphocytes % (Manual) Seg Neutrophils # Man Lymphocytes # (Manual) PT INR ABG pH 7.471 H 7.496 H ABG pO2 47.8 L 91.0 H ABG HCO3 30.6 H ABG O2 Saturation 94.4 L ABG Base Excess 6.2 H ABG Hemoglobin 11.0 L 12.8 L Oxyhemoglobin 93.1 L Sodium 149 H Potassium 3.4 L Carbon Dioxide Creatinine 0.4 L Glucose Calcium Phosphorus Magnesium Troponin T C-Reactive Protein Total Protein Albumin LDL Cholesterol Direct 04/04/22 04/04/22 04/04/22 04:18 04:18 05:50 WBC 11.8 H MCV Plt Count 132 L Seg Neuts % (Manual) Lymphocytes % (Manual) Seg Neutrophils # Man Lymphocytes # (Manual) PT INR ABG pH 7.517 H ABG pO2 115.5 H ABG HCO3 29.9 H ABG O2 Saturation ABG Base Excess 6.7 H ABG Hemoglobin 12.3 L Oxyhemoglobin Sodium Potassium 3.5 L Carbon Dioxide 31 H Creatinine 0.3 L Glucose 153 H Calcium Phosphorus 1.40 L Magnesium 1.50 L Troponin T C-Reactive Protein 31.60 H Total Protein Albumin LDL Cholesterol Direct Chest x-ray: image reviewed (Improved aeration right lung) Allied health notes reviewed: RT
--- NOTE | 2022-04-05 01:56 | XRay Report ---
CHEST 1 VIEW INDICATION / CLINICAL INFORMATION: Respiratory Failure. COMPARISON: Chest x-ray 04/04/2022 FINDINGS: SUPPORT DEVICES: Stable, satisfactory device positioning. HEART / MEDIASTINUM: Stable interval appearance of the cardiomediastinal silhouette. LUNGS / PLEURA: Slightly worsened opacities mid-lower right chest. Blunting of the right costophrenic angle not excluded. Left lung clear. BONES: No significant osseous abnormality. ADDITIONAL FINDINGS: No significant additional findings. IMPRESSION: 1. Worsened opacities mid-lower right chest may be part reflect dependent pleural fluid. Otherwise li ttle change in the chest. Signer Name: Trae Mcfarland II, MD Signed: 04/05/2022 1:52 AM Workstation Name: [id number]
[2022-04-05 02:52] LABS: Hematocrit 33.2 % (35.5-45.6); Hemoglobin 11.1 gm/dl (11.8-15.2); Mean Corpuscular HGB Conc 34 % (32-34); Mean Corpuscular Volume 93 fl (84-94); Platelet Count 113 K/mm3 (140-440); Red Blood Count 3.55 M/mm3 (3.65-5.03); Red Cell Distribution Width 14.3 % (13.2-15.2)
[2022-04-05 03:07] LABS: Blood Urea Nitrogen 9 mg/dL (9-20); Calcium 7.9 mg/dL (8.4-10.2); Hemolysis Index 4
[2022-04-05 03:33] LABS: BUN/Creatinine Ratio 45
[2022-04-05 05:40] LABS: ABG Base Excess 5.9 mmol/L (-2.0-3.0); ABG HCO3 30.5 mmol/L (20.0-26.0); ABG Methemoglobin 0.3 % (0.0-1.5); ABG Oxygen Saturation 89.4 % (95.0-99.0); ABG PCO2 44.3 mm Hg; ABG PH 7.455 pH Units (7.350-7.450); ABG PO2 50.7 mm Hg (80.0-90.0)
[2022-04-05] MEDS: HEPARIN 5,000 UNIT/1 ML VIAL SUB-Q SCH ×3 (06:41→22:42)
[2022-04-05] MEDS: CEFEPIME/NS 2 GM/100 ML 2 GM/100 ML BAG IV SCH ×2 (06:41→17:02)
[2022-04-05] MEDS: VANCOMYCIN 750 MG in SODIUM CHLORIDE 0.9% 250ML 250 ML IV SCH (06:41)
[2022-04-05] MEDS: fentaNYL 100 MCG/2 ML INJ IV PRN (07:56)
[2022-04-05] MEDS: SENNOSIDES ORAL LIQD 8.8 MG/5 ML ORAL LIQD PO SCH ×2 (09:05→22:09)
[2022-04-05] MEDS: FAMOTIDINE 20 MG/2 ML INJ IV SCH (09:05)
[2022-04-05] MEDS: DOCUSATE SODIUM 100 MG/10 ML ORAL LIQD PO SCH ×2 (09:05→22:09)
--- NOTE | 2022-04-05 09:09 | XRay Report ---
. XR chest 1V ap INDICATION / CLINICAL INFORMATION: Low saturations. COMPARISON: Radiograph from earlier same day. FINDINGS: SUPPORT DEVICES: Unchanged. HEART /PULMONARY VASCULATURE: Unchanged. LUNGS / PLEURA: No significant change. Apparent differences in right basilar pleural-parenchymal opac ity are likely related to differences in positioning. Left lung is clear. No pneumothorax. IMPRESSION: No significant change in right basilar pleural effusion and adjacent airspace consolidation/atelectas is. Signer Name: Errol Oscar MD Signed: 04/05/2022 9:04 AM Workstation Name: [id number]
[2022-04-05] MEDS: fentaNYL DRIP Premix 2,000 MCG/100 ML BAG IV SCH (11:06)
--- NOTE | 2022-04-05 11:56 | Consultation ---
History of Present Illness - Reason for Consult Consult date: 04/05/22 - History of Present Illness 57-year-old man past medical history ALS presented to hospital with acute encephalopathy and respiratory distress. Patient is currently sedated, especially history is obtained from the chart. He was recently seen at [facility] for similar issues, and was planned to be discharged with home hospice. As such she was not discharged with any home antibiotics. Febrile to 101.6 with a white count of 14.3. Sputum culture with gram-negative rods Imaging personally reviewed: Chest x-ray: Right basilar pleural effusion and adjacent airspace consolidation. Past History Past Medical History: other (ALS) Past Surgical History: No surgical history Social history: no significant social history Family history: no significant family history Medications and Allergies Allergies Allergy/AdvReac Type Severity Reaction Status Date / Time No Known Allergies Allergy Verified 04/02/22 18:54 Home Medications Medication Instructions Recorded Confirmed Last Taken Type Baclofen [Lioresal] 10 mg PO TID 04/03/22 04/03/22 04/02/22 History Gabapentin 300 mg PO BID 04/03/22 04/03/22 04/02/22 History Glycopyrrolate [Robinul] 1 mg PO BID 04/03/22 04/03/22 04/02/22 History Hyoscyamine Subl [Levsin Sl 0.125 0.125 mg SUBLINGUAL Q4HR 04/03/22 04/03/22 Unknown History TAB] LORazepam [Ativan] 1 mg PO Q4HR PRN 04/03/22 04/03/22 04/02/22 History Nuedexta 20-10 mg Capsule 1 cap PO Q12HR 04/03/22 04/03/22 04/02/22 History Riluzole 50 mg PO DAILY 04/03/22 04/03/22 04/02/22 History Active Meds: Active Medications Acetaminophen (Acetaminophen 325 Mg Tab) 650 mg PO Q6H PRN PRN Reason: Pain MILD(1-3)/Fever >100.5/FAITH Docusate Sodium (Docusate Sodium 100 Mg/10 Ml Oral Liqd) 100 mg PO BID [facility] Last Admin: 04/05/22 09:05 Dose: 100 mg Famotidine (Famotidine 20 Mg/2 Ml Inj) 20 mg IV QDAY [facility] Last Admin: 04/05/22 09:05 Dose: 20 mg Fentanyl (Fentanyl 100 Mcg/2 Ml Inj) 50 mcg IV Q2HR PRN PRN Reason: For CPOT of greater than 2 Last Admin: 04/05/22 07:56 Dose: 50 mcg Heparin Sodium (Porcine) (Heparin 5,000 Unit/1 Ml Vial) 5,000 unit SUB-Q Q8HR SEGUNDO Last Admin: 04/05/22 06:41 Dose: 5,000 unit NORepinephrine/NS 8 MG-250 ML (Norepinephrine/Ns 8 Mg-250 Ml (Double Conc)) 8 mg in 250 mls @ 3.75 mls/hr IV TITRATE SEGUNDO; Protocol Last Titration: 04/05/22 02:50 Dose: 0 mcg/min, 0 mls/hr Vancomycin HCl 750 mg/ Sodium (Chloride) 265 mls @ 166.667 mls/hr IV Q12H [facility] Last Infusion: 04/05/22 08:17 Dose: Infused Dexmedetomidine HCl 400 mcg/ (Sodium Chloride) 104 mls @ 2.434 mls/hr IV TITRATE SEGUNDO; Protocol Last Titration: 04/05/22 10:02 Dose: 1 mcg/kg/hr, 12.168 mls/hr Cefepime HCl (Cefepime/Ns 2 Gm/100 Ml) 2 gm in 100 mls @ 200 mls/hr IV Q12H SEGUNDO; Protocol Last Infusion: 04/05/22 07:11 Dose: Infused Fentanyl Citrate (Fentanyl Drip Premix) 2,000 mcg in 100 mls @ 2.34 mls/hr IV TITR SEGUNDO; Protocol Last Admin: 04/05/22 11:06 Dose: 1 mcg/kg/hr, 2.34 mls/hr Magnesium Hydroxide (Magnesium Hydroxide (Mom) Oral Liqd Udc) 30 ml PO Q4H PRN PRN Reason: Constipation Ondansetron HCl (Ondansetron 4 Mg/2 Ml Inj) 4 mg IV Q8H PRN PRN Reason: Nausea And Vomiting Senna (Sennosides Oral Liqd 8.8 Mg/5 Ml Oral Liqd) 17.6 mg PO Q12HR SEGUNDO Last Admin: 04/05/22 09:05 Dose: 17.6 mg Sodium Chloride (Sodium Chloride 0.9% 10 Ml Flush Syringe) 10 ml IV BID [facility] Last Admin: 04/05/22 09:06 Dose: 10 ml Sodium Chloride (Sodium Chloride 0.9% 10 Ml Flush Syringe) 10 ml IV PRN PRN PRN Reason: LINE FLUSH Physical Examination - Physical Exam Narrative exam: Physical Exam: Constitutional: Intubated, sedated Head, Ears, Nose: Normocephalic, atraumatic. External ears, nose normal Eyes: Conjunctivae/corneas clear. No icterus. No ptosis. Neck: Supple, no meningeal signs Oral: Intubated Cardiovascular: S1, S2 normal. Respiratory: Good air entry, clear to auscultation bilaterally GI: Soft, non-tender; bowel sounds normal. No peritoneal signs. Musculoskeletal: No pedal edema, no cyanosis. Skin: No rash or abscess Hem/Lymphatic: No palpable cervical or supraclavicular nodes. No lymphangitis Psych: Mood ok. Affect normal Neurological: Sedated - Constitutional Vitals: Vital Signs Temp Pulse Resp BP Pulse Ox 97.3 F L 102 H 19 108/77 96 04/05/22 07:00 04/05/22 11:31 04/05/22 10:00 04/05/22 11:31 04/05/22 11:31 Temperature -Last 24 Hours Temperature 97.3 F Temperature 99.8 F Temperature 100.4 F Temperature 99.6 F Temperature 97.9 F Temperature 97.4 F Results - Labs CBC & Chem 7: 04/05/22 Unknown 04/05/22 02:50 Labs: Abnormal lab results 04/05/22 04/05/22 04/05/22 Range/Units 02:50 05:25 Unknown RBC 3.55 L (3.65-5.03) M/mm3 Hgb 11.1 L (11.8-15.2) gm/dl Hct 33.2 L (35.5-45.6) % Plt Count 113 L (140-440) K/mm3 ABG pH 7.455 H (7.350-7.450) pH Units ABG pO2 50.7 L (80.0-90.0) mm Hg ABG HCO3 30.5 H (20.0-26.0) mmol/L ABG O2 Saturation 89.4 L (95.0-99.0) % ABG Base Excess 5.9 H (-2.0-3.0) mmol/L ABG Hemoglobin 11.8 L (14.0-18.0) gm/dl Oxyhemoglobin 88.2 L (95.0-99.0) % Carbon Dioxide 32 H (22-30) mmol/L Creatinine 0.2 L (0.8-1.3) mg/dL Glucose 110 H (75-100) mg/dL Calcium 7.9 L (8.4-10.2) mg/dL Assessment and Plan Cultures: Blood culture no growth so far Sputum culture negative renal A/P: 57-year-old man past medical history ALS now with: #Acute sepsis: With fevers and leukocytosis. Secondary to pneumonia. #Acute hypoxic respiratory failure: Currently on the vent. #Hospital-acquired pneumonia. Was recently seen at [facility], was initially discharged to home hospice, as such was not given antibiotics. #ALS: Was on home hospice. Recs: -Goals of care, poor prognosis. -Sputum cultures with gram-negative rods; continue cefepime, stop vancomycin -Follow-up cultures Thank you for the consult, we will continue to follow. MD [facility]od [facility] O: [phone] F: [phone]
--- NOTE | 2022-04-05 12:05 | Progress Note ---
Assessment and Plan 1. Community-acquired bronchopneumonia 2. Respiratory failure s/p intubation on mechanical ventilator. 3. Equivocal serum troponin elevation rule out ischemic coronary artery disease 4. Cardiomyopathy unspecified left ventricular ejection fraction 40 to 45% 5. ALS Plan. Continue antibiotic treatment for bronchopneumonia as per pulmonary. Hold on beta-bloclers secondary to borderline low BP. Patient is not a candidate for invasive cardiac management we will continue conservative management Subjective Date of service: 04/05/22 Interval history: No change in clinical status Objective Vital Signs Temp Pulse Pulse Resp BP Pulse Ox 04/05/22 12:00 95 H 105 H 22 105/71 94 04/05/22 11:59 105 H 04/05/22 11:50 91 H 18 99/74 95 04/05/22 11:40 87 15 108/77 96 04/05/22 11:31 102 H 108/77 96 04/05/22 11:30 96 H 20 108/77 96 04/05/22 11:20 104 H 21 112/79 94 04/05/22 11:10 95 H 15 119/84 96 04/05/22 11:00 98.8 F 109 H 24 119/84 96 04/05/22 10:50 107 H 16 112/76 95 04/05/22 10:40 106 H 22 113/81 94 04/05/22 10:30 102 H 17 113/81 96 04/05/22 10:20 101 H 16 109/75 94 04/05/22 10:10 97 H 18 115/81 95 04/05/22 10:00 101 H 19 115/81 94 04/05/22 09:50 106 H 16 119/86 94 04/05/22 09:40 99 H 18 119/85 93 04/05/22 09:30 100 H 22 119/85 94 04/05/22 09:20 104 H 22 108/96 93 04/05/22 09:10 93 H 21 110/90 92 04/05/22 09:00 107 H 27 H 110/90 91 04/05/22 08:50 103 H 17 122/90 93 04/05/22 08:40 99 H 26 H 108/79 93 04/05/22 08:30 90 16 108/79 93 04/05/22 08:20 101 H 28 H 104/70 92 04/05/22 08:10 74 14 122/90 79 L 04/05/22 08:00 90 94 H 21 104/70 96 04/05/22 07:50 89 17 114/81 90 04/05/22 07:40 102 H 23 115/78 91 04/05/22 07:30 97 H 18 115/78 88 04/05/22 07:24 94 H 04/05/22 07:20 102 H 17 121/82 89 04/05/22 07:10 99 H 15 111/77 91 04/05/22 07:00 97.3 F L 91 H 15 111/77 90 04/05/22 06:50 93 H 21 103/71 92 04/05/22 06:40 91 H 14 112/82 92 04/05/22 06:33 94 04/05/22 06:30 97 H 15 112/82 91 04/05/22 06:20 93 H 16 116/74 93 04/05/22 06:10 71 14 96/68 92 04/05/22 06:00 83 14 96/68 94 04/05/22 05:50 91 H 15 102/70 93 04/05/22 05:40 88 16 105/74 93 04/05/22 05:30 89 15 105/74 94 04/05/22 05:20 77 14 111/75 91 04/05/22 05:10 82 14 108/75 91 04/05/22 05:00 95 H 16 108/75 92 04/05/22 04:50 91 H 17 112/78 91 04/05/22 04:40 92 H 17 106/73 90 04/05/22 04:30 92 H 16 106/73 90 04/05/22 04:20 93 H 14 105/72 91 04/05/22 04:10 95 H 17 112/77 90 04/05/22 04:00 94 H 93 H 14 112/77 91 04/05/22 03:50 95 H 17 104/70 91 04/05/22 03:40 86 14 112/73 95 04/05/22 03:36 90 112/73 92 04/05/22 03:30 91 H 18 112/73 90 04/05/22 03:20 96 H 14 106/76 92 04/05/22 03:19 99.8 F H 04/05/22 03:10 91 H 15 103/72 92 04/05/22 03:00 86 14 103/72 93 04/05/22 02:50 70 15 123/82 97 04/05/22 02:40 82 16 112/78 96 04/05/22 02:30 83 15 112/78 94 04/05/22 02:20 67 14 105/73 97 04/05/22 02:10 77 14 118/81 98 04/05/22 02:00 79 14 118/81 97 04/05/22 01:50 75 14 113/79 98 04/05/22 01:40 86 15 101/70 98 04/05/22 01:30 65 14 105/70 98 04/05/22 01:20 74 14 105/70 98 04/05/22 01:10 77 14 113/77 98 04/05/22 01:00 86 14 113/77 96 04/05/22 00:50 72 14 109/74 96 04/05/22 00:40 74 15 109/74 96 04/05/22 00:30 81 14 109/74 95 04/05/22 00:20 79 16 110/72 95 04/05/22 00:10 81 16 102/65 94 04/05/22 00:00 100.4 F H 73 93 H 14 102/65 92 05 23:50 81 15 114/73 92 04/04/22 23:40 89 16 104/68 92 05 23:36 88 16 104/68 93 05 23:30 85 15 104/68 92 04/04/22 23:20 94 H 17 112/72 94 04/04/22 23:10 93 H 14 106/74 95 0522 23:00 87 15 106/74 96 04/04/22 22:50 92 H 16 110/74 94 [id number] 22:40 91 H 15 100/71 95 0529/22 22:30 85 14 100/71 95 0529/22 22:20 89 17 100/69 97 0529/22 22:10 64 14 102/70 97 [id number] 22:00 65 14 102/70 0529/22 21:50 63 14 106/72 97 0529/22 21:40 64 14 103/70 97 [id number] 21:30 64 14 103/70 05/29/22 21:20 64 14 105/71 97 04/04/22 21:10 63 14 99/68 97 04/04/22 21:00 64 14 99/68 96 04/04/22 20:50 63 14 101/68 96 04/04/22 20:40 64 14 101/67 95 04/04/22 20:30 63 14 101/67 94 04/04/22 20:20 67 14 99/67 96 04/04/22 20:10 74 14 97/65 97 04/04/22 20:00 68 93 H 16 97/65 96 04/04/22 19:58 99.6 F 04/04/22 19:50 69 14 107/75 95 04/04/22 19:40 82 14 91/57 96 04/04/22 19:30 71 14 91/57 93 04/04/22 19:20 71 14 101/69 95 04/04/22 19:10 85 15 81/62 94 04/04/22 19:00 93 H 15 81/62 93 04/04/22 18:50 79 14 87/54 90 04/04/22 18:40 96 H 14 91/59 92 04/04/22 18:30 89 14 91/59 94 04/04/22 18:20 109 H 16 108/71 91 04/04/22 18:10 106 H 16 108/68 92 04/04/22 18:00 107 H 16 101/65 89 04/04/22 17:50 112 H 15 101/65 88 04/04/22 17:40 117 H 14 121/92 89 04/04/22 17:30 114 H 16 130/88 90 04/04/22 17:20 101 H 15 112/82 90 04/04/22 17:10 105 H 15 121/92 93 04/04/22 17:00 110 H 15 111/75 97 04/04/22 16:50 89 14 111/75 87 04/04/22 16:40 110 H 16 117/83 91 04/04/22 16:30 104 H 14 117/83 94 04/04/22 16:20 100 H 11 L 111/78 93 04/04/22 16:10 97 H 17 107/74 93 04/04/22 16:00 97.9 F 90 14 107/73 04/04/22 15:50 96 H 14 98/75 96 04/04/22 15:48 93 H 93 H 16 95 04/04/22 15:40 92 H 14 107/74 96 04/04/22 15:30 92 H 14 107/74 97 04/04/22 15:20 93 H 14 100/71 95 04/04/22 15:10 86 14 99/69 95 04/04/22 15:00 87 14 99/69 04/04/22 14:50 89 14 105/75 95 04/04/22 14:40 88 14 99/68 96 04/04/22 14:30 85 14 101/71 96 04/04/22 14:20 81 14 102/70 96 04/04/22 14:10 76 15 95/62 95 04/04/22 14:00 72 14 99/68 04/04/22 13:50 76 14 95/62 95 04/04/22 13:40 72 14 98/65 96 04/04/22 13:30 65 14 94/63 04/04/22 13:20 73 14 98/65 96 04/04/22 13:10 66 13 95/66 95 04/04/22 13:00 66 14 95/66 98 04/04/22 12:50 62 15 98/68 97 04/04/22 12:40 59 L 14 99/69 97 04/04/22 12:30 58 L 14 99/69 04/04/22 12:20 59 L 14 104/70 97 04/04/22 12:10 60 14 99/67 97 - Physical Examination General: Other (Intubated on mechanical ventilator) HEENT: Positive: PERRL, Normocephaly Neck: Positive: neck supple, trachea midline (intubated). Negative: JVD/HJR Cardiac: Positive: Regular Rate, S1/S2. Negative: S3, S4 Lungs: Positive: Normal Breath Sounds, No Wheeze, Rales, Rhonchi Neuro: Positive: Other (Intubated sedated) Abdomen: Positive: Soft Extremities: Absent: edema - Labs and Meds CBC 04/05/22 Range/Units Unknown WBC 8.0 (4.5-11.0) K/mm3 RBC 3.55 L (3.65-5.03) M/mm3 Hgb 11.1 L (11.8-15.2) gm/dl Hct 33.2 L (35.5-45.6) % Plt Count 113 L (140-440) K/mm3 Comprehensive Metabolic Panel 04/05/22 Range/Units 02:50 Sodium 142 (137-145) mmol/L Potassium 3.7 (3.6-5.0) mmol/L Chloride 104.0 (98-107) mmol/L Carbon Dioxide 32 H (22-30) mmol/L BUN 9 (9-20) mg/dL Creatinine 0.2 L (0.8-1.3) mg/dL Glucose 110 H (75-100) mg/dL Calcium 7.9 L (8.4-10.2) mg/dL
--- NOTE | 2022-04-05 12:27 | Progress Note ---
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 Protein calorie malnutrition Acute Bronchopneumonia HCAP Hypotension NSTEMI Hypernatremia Acute Metabolic Encephalopathy H/o Amyotrophic Lateral Sclerosis Nonverbal at Baseline Thrombocytopenia Protein Caloric Malnutrition Constipation - Noted on CXR and KUB Sudden desaturations , chest XR ordered to evaluate lung parenchyma. Airway pressures are acceptable. is meant to get back to us re goals of care discussions. Add Fentanyl to therapy for pain management, titrate to CPOT 0-2 -Titrate supplemental oxygen to keep SpO2 89-92% -VAP bundle addressed, aspiration precautions HOB >40 -Lung protective strategies, -CXR, ABG as clinically indicated -Daily assessment for readiness to wean. Daily SBT -On Precedex for agitation management -Monitoring renal function, hemodynamics and electrolyte profile -Replete electrolytes as clinically indicated -Empiric antibiotics therapy for HAP, ID following -Accuchecks with glycemic control. target blood glucose 140-180 mg/dL. Avoid hypoglycemia -Continue enteric nutritional support, bowel regimen -VTE prophylaxis- Heparin -Avoid nephrotoxins and renally dose all medications -Stress ulcer prophylaxis- Famotidine -Mobility, frequent turning, off loading per facility protocol to prevent pressure ulcers -Maintain sleep wake cycle, avoid benzodiazepines. -Limit delirium CONDITION:CRITICAL PROGNOSIS: GUARDED CODE STATUS; FULL CODE The high probability of a clinically significant, sudden or life threatening deterioration of the respiratory, cardiovascular, neurology system required my full and direct attention, intervention and personal management. The aggregate critical care time was [35] minutes. This time is in addition to time spent performing reported procedures but includes the following: [x] Data Review and interpretation [x] Patient assessment and monitoring of vital signs [x] Documentation [x] Medication orders and management Subjective Date of service: 04/05/22 Interval history: Follow up for : Acute and chronic Respiratory Failure with Hypoxia and Hyper capnia 2/2 ALS;Protein calorie malnutrition;Acute Bronchopneumonia; HCAP; Hypotension; NSTEMI; Hypernatremia; Acute Metabolic Encephalopathy; H/o Amyotrophic Lateral Sclerosis Patient seen and examined. Vitals, labs, medications, chart and imaging reviewed. Discussed with respiratory and nursing care staff. No adverse overnight events. No reported fevers, blood pressure acceptable range. Objective - Exam Narrative Exam: General appearance: appears uncomfortable, other (orally intubated, on full MVS- riding set vent rate) Eyes: non-icteric ENT: oropharynx moist Neck: supple, no lymphadenopathy, no JVD, RIJ CVL Effort: mildly labored Ascultation: Bilateral: diminished breath sounds (right lung), rhonchi Cardiovascular: regular rate and rhythm, other (S1,S2) Gastrointestinal: normoactive bowel sounds, soft, non-tender Extremities: no cyanosis, no edema, pink and warm, pulses normal pupils equal and round Appropriate mood and affect Vital Signs - 12hr 04/05/22 04/05/22 04/05/22 00:30 00:40 00:50 Temperature Pulse Rate 81 74 72 Pulse Rate [ From Monitor] Respiratory 14 15 14 Rate Blood Pressure 109/74 109/74 109/74 O2 Sat by Pulse 95 96 96 Oximetry 04/05/22 04/05/22 04/05/22 01:00 01:10 01:20 Temperature Pulse Rate 86 77 74 Pulse Rate [ From Monitor] Respiratory 14 14 14 Rate Blood Pressure 113/77 113/77 105/70 O2 Sat by Pulse 96 98 98 Oximetry 04/05/22 04/05/22 04/05/22 01:30 01:40 01:50 Temperature Pulse Rate 65 86 75 Pulse Rate [ From Monitor] Respiratory 14 15 14 Rate Blood Pressure 105/70 101/70 113/79 O2 Sat by Pulse 98 98 98 Oximetry 04/05/22 04/05/22 04/05/22 02:00 02:10 02:20 Temperature Pulse Rate 79 77 67 Pulse Rate [ From Monitor] Respiratory 14 14 14 Rate Blood Pressure 118/81 118/81 105/73 O2 Sat by Pulse 97 98 97 Oximetry 04/05/22 04/05/22 04/05/22 02:30 02:40 02:50 Temperature Pulse Rate 83 82 70 Pulse Rate [ From Monitor] Respiratory 15 16 15 Rate Blood Pressure 112/78 112/78 123/82 O2 Sat by Pulse 94 96 97 Oximetry 04/05/22 04/05/22 04/05/22 03:00 03:10 03:19 Temperature 99.8 F H Pulse Rate 86 91 H Pulse Rate [ From Monitor] Respiratory 14 15 Rate Blood Pressure 103/72 103/72 O2 Sat by Pulse 93 92 Oximetry 04/05/22 04/05/22 04/05/22 03:20 03:30 03:36 Temperature Pulse Rate 96 H 91 H 90 Pulse Rate [ From Monitor] Respiratory 14 18 Rate Blood Pressure 106/76 112/73 112/73 O2 Sat by Pulse 92 90 92 Oximetry 04/05/22 04/05/22 04/05/22 03:40 03:50 04:00 Temperature Pulse Rate 86 95 H 94 H Pulse Rate [ 93 H From Monitor] Respiratory 14 17 14 Rate Blood Pressure 112/73 104/70 112/77 O2 Sat by Pulse 95 91 91 Oximetry 04/05/22 04/05/22 04/05/22 04:10 04:20 04:30 Temperature Pulse Rate 95 H 93 H 92 H Pulse Rate [ From Monitor] Respiratory 17 14 16 Rate Blood Pressure 112/77 105/72 106/73 O2 Sat by Pulse 90 91 90 Oximetry 04/05/22 04/05/22 04/05/22 04:40 04:50 05:00 Temperature Pulse Rate 92 H 91 H 95 H Pulse Rate [ From Monitor] Respiratory 17 17 16 Rate Blood Pressure 106/73 112/78 108/75 O2 Sat by Pulse 90 91 92 Oximetry 04/05/22 04/05/22 04/05/22 05:10 05:20 05:30 Temperature Pulse Rate 82 77 89 Pulse Rate [ From Monitor] Respiratory 14 14 15 Rate Blood Pressure 108/75 111/75 105/74 O2 Sat by Pulse 91 91 94 Oximetry 04/05/22 04/05/22 04/05/22 05:40 05:50 06:00 Temperature Pulse Rate 88 91 H 83 Pulse Rate [ From Monitor] Respiratory 16 15 14 Rate Blood Pressure 105/74 102/70 96/68 O2 Sat by Pulse 93 93 94 Oximetry 04/05/22 04/05/22 04/05/22 06:10 06:20 06:30 Temperature Pulse Rate 71 93 H 97 H Pulse Rate [ From Monitor] Respiratory 14 16 15 Rate Blood Pressure 96/68 116/74 112/82 O2 Sat by Pulse 92 93 91 Oximetry 04/05/22 04/05/22 04/05/22 06:33 06:40 06:50 Temperature Pulse Rate 91 H 93 H Pulse Rate [ From Monitor] Respiratory 14 21 Rate Blood Pressure 112/82 103/71 O2 Sat by Pulse 94 92 92 Oximetry 04/05/22 04/05/22 04/05/22 07:00 07:10 07:20 Temperature 97.3 F L Pulse Rate 91 H 99 H 102 H Pulse Rate [ From Monitor] Respiratory 15 15 17 Rate Blood Pressure 111/77 111/77 121/82 O2 Sat by Pulse 90 91 89 Oximetry 04/05/22 04/05/22 04/05/22 07:24 07:30 07:40 Temperature Pulse Rate 94 H 97 H 102 H Pulse Rate [ From Monitor] Respiratory 18 23 Rate Blood Pressure 115/78 115/78 O2 Sat by Pulse 88 91 Oximetry 04/05/22 04/05/22 04/05/22 07:50 08:00 08:10 Temperature Pulse Rate 89 90 74 Pulse Rate [ 94 H From Monitor] Respiratory 17 21 14 Rate Blood Pressure 114/81 104/70 122/90 O2 Sat by Pulse 90 96 79 L Oximetry 04/05/22 04/05/22 04/05/22 08:20 08:30 08:40 Temperature Pulse Rate 101 H 90 99 H Pulse Rate [ From Monitor] Respiratory 28 H 16 26 H Rate Blood Pressure 104/70 108/79 108/79 O2 Sat by Pulse 92 93 93 Oximetry 04/05/22 04/05/22 04/05/22 08:50 09:00 09:10 Temperature Pulse Rate 103 H 107 H 93 H Pulse Rate [ From Monitor] Respiratory 17 27 H 21 Rate Blood Pressure 122/90 110/90 110/90 O2 Sat by Pulse 93 91 92 Oximetry 04/05/22 04/05/22 04/05/22 09:20 09:30 09:40 Temperature Pulse Rate 104 H 100 H 99 H Pulse Rate [ From Monitor] Respiratory 22 22 18 Rate Blood Pressure 108/96 119/85 119/85 O2 Sat by Pulse 93 94 93 Oximetry 04/05/22 04/05/22 04/05/22 09:50 10:00 10:10 Temperature Pulse Rate 106 H 101 H 97 H Pulse Rate [ From Monitor] Respiratory 16 19 18 Rate Blood Pressure 119/86 115/81 115/81 O2 Sat by Pulse 94 94 95 Oximetry 04/05/22 04/05/22 04/05/22 10:20 10:30 10:40 Temperature Pulse Rate 101 H 102 H 106 H Pulse Rate [ From Monitor] Respiratory 16 17 22 Rate Blood Pressure 109/75 113/81 113/81 O2 Sat by Pulse 94 96 94 Oximetry 05/30/22 05/30/22 05/30/22 10:50 11:00 11:10 Temperature 98.8 F Pulse Rate 107 H 109 H 95 H Pulse Rate [ From Monitor] Respiratory 16 24 15 Rate Blood Pressure 112/76 119/84 119/84 O2 Sat by Pulse 95 96 96 Oximetry 04/05/22 04/05/22 04/05/22 11:20 11:30 11:31 Temperature Pulse Rate 104 H 96 H 102 H Pulse Rate [ From Monitor] Respiratory 21 20 Rate Blood Pressure 112/79 108/77 108/77 O2 Sat by Pulse 94 96 96 Oximetry 04/05/22 04/05/22 04/05/22 11:40 11:50 11:59 Temperature Pulse Rate 87 91 H 105 H Pulse Rate [ From Monitor] Respiratory 15 18 Rate Blood Pressure 108/77 99/74 O2 Sat by Pulse 96 95 Oximetry 04/05/22 12:00 Temperature Pulse Rate 95 H Pulse Rate [ 105 H From Monitor] Respiratory 22 Rate Blood Pressure 105/71 O2 Sat by Pulse 94 Oximetry CBC and BMP: 04/07/22 03:51 04/07/22 03:51 ABG, PT/INR, D-dimer: ABG ABG pH 7.455 pH Units (7.350-7.450) H 04/05/22 05:25 ABG pCO2 44.3 mm Hg 04/05/22 05:25 ABG pO2 50.7 mm Hg (80.0-90.0) L 04/05/22 05:25 ABG O2 Saturation 89.4 % (95.0-99.0) L 04/05/22 05:25 PT/INR, D-dimer PT 15.9 Sec. (12.2-14.9) H 04/02/22 19:39 INR 1.14 (0.87-1.13) H 04/02/22 19:39 Abnormal lab findings: Abnormal Labs 04/02/22 04/02/22 04/02/22 19:39 19:39 19:39 WBC 14.3 H RBC Hgb Hct MCV 96 H Plt Count 104 L Seg Neuts % (Manual) 94.0 H Lymphocytes % (Manual) 1.0 L Seg Neutrophils # Man 13.4 H Lymphocytes # (Manual) 0.1 L PT 15.9 H INR 1.14 H ABG pH ABG pO2 ABG HCO3 ABG O2 Saturation ABG Base Excess ABG Hemoglobin Oxyhemoglobin Sodium 151 H Potassium Carbon Dioxide Creatinine 0.5 L Glucose Calcium 8.2 L Phosphorus Magnesium 1.60 L Troponin T 0.048 H C-Reactive Protein Total Protein 4.6 L Albumin 2.7 L LDL Cholesterol Direct 27 L 04/02/22 04/03/22 04/03/22 19:42 05:14 06:30 WBC RBC Hgb Hct MCV Plt Count Seg Neuts % (Manual) Lymphocytes % (Manual) Seg Neutrophils # Man Lymphocytes # (Manual) PT INR ABG pH 7.471 H 7.496 H ABG pO2 47.8 L 91.0 H ABG HCO3 30.6 H ABG O2 Saturation 94.4 L ABG Base Excess 6.2 H ABG Hemoglobin 11.0 L 12.8 L Oxyhemoglobin 93.1 L Sodium 149 H Potassium 3.4 L Carbon Dioxide Creatinine 0.4 L Glucose Calcium Phosphorus Magnesium Troponin T C-Reactive Protein Total Protein Albumin LDL Cholesterol Direct 04/04/22 04/04/22 04/04/22 04:18 04:18 05:50 WBC 11.8 H RBC Hgb Hct MCV Plt Count 132 L Seg Neuts % (Manual) Lymphocytes % (Manual) Seg Neutrophils # Man Lymphocytes # (Manual) PT INR ABG pH 7.517 H ABG pO2 115.5 H ABG HCO3 29.9 H ABG O2 Saturation ABG Base Excess 6.7 H ABG Hemoglobin 12.3 L Oxyhemoglobin Sodium Potassium 3.5 L Carbon Dioxide 31 H Creatinine 0.3 L Glucose 153 H Calcium Phosphorus 1.40 L Magnesium 1.50 L Troponin T C-Reactive Protein 31.60 H Total Protein Albumin LDL Cholesterol Direct 04/05/22 04/05/22 04/05/22 02:50 05:25 Unknown WBC RBC 3.55 L Hgb 11.1 L Hct 33.2 L MCV Plt Count 113 L Seg Neuts % (Manual) Lymphocytes % (Manual) Seg Neutrophils # Man Lymphocytes # (Manual) PT INR ABG pH 7.455 H ABG pO2 50.7 L ABG HCO3 30.5 H ABG O2 Saturation 89.4 L ABG Base Excess 5.9 H ABG Hemoglobin 11.8 L Oxyhemoglobin 88.2 L Sodium Potassium Carbon Dioxide 32 H Creatinine 0.2 L Glucose 110 H Calcium 7.9 L Phosphorus Magnesium Troponin T C-Reactive Protein Total Protein Albumin LDL Cholesterol Direct
--- NOTE | 2022-04-05 15:04 | Progress Note ---
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, recently hospitalized at [facility] admitted for acute hypoxemic respiratory failure 2/2 pneumonia Neuro: h/o ALS -Sedated with precedex gtt -added fentanyl gtt for guppy breathing -RASS goal 0 to -1 -Avoid delirium -Reorientation as needed -Maintain sleep-wake cycle -aspiration/seizure precautions -As needed analgesia -CT head with no acute intracranial process -Neurology consulted, appreciate recommendations -Per family patient is nonverbal at baseline but responsive Cardiac: Hypotension, elevated troponin, h/o cardiomyopathy -Cardiology consulted, appreciate recommendations -Blood pressure monitoring per protocol -Vasopressor support with Levophed -Echocardiogram shows ejection fraction of 40 to 45%, mild global hypokinesis of left ventricle Respiratory: Acute hypoxic respiratory failure -CCM consulted, appreciate recommendations -Intubated on 04/02 with a 7.50 ETT attempt at the lips -A.m. vent settings: Assist-control/ PRVC TV 400, rate 14, Peep 8, FiO2 70% -See RT notes for titration -A.m. ABG and CXR noted -VAP bundle -SPO2 monitoring GI: Constipation, Moderate protein calorie malnutrition -24 hours -308 mL -PPI -NTR consulted for tube feedings -BR: [place] : NAD -Strict intake and output -Renally dose medications -Avoid nephrotoxic medications -Daily weights -trend BMP ID: Sepsis, Acute Bronchopneumonia, HAP -Infectious disease consulted, appreciate recommendation -Per infectious disease patient was recently admitted to [facility] but discharged home with home hospice and not giving antibiotics -Antibiotic therapy with cefepime, vancomycin -Per ID given GNR in sputum cultures stop vancomycin -f/u blood culture -Tracheal aspirate with Pseudomonas aeruginosa, Enterobacter aerogenes -CRP 31.6, procalcitonin 0.08 -Monitor WBC and temperature curve Endo: NAD -Avoid hypoglycemia -SSI -Accu-Cheks q 6 Heme: Thrombocytopenia, leukocytosis -Heparin subq -Trend CBC -Transfuse hemoglobin less than 7 -Monitor for signs of bleeding -SCDs to BLE while in bed Advance Care Planning - Disease education, care plan, diagnoses, and prognosis were discussed patient's , Carly oLpez, and patient daughter, Kaylee Warren, who translated for #[phone]. They reported that patient was following at [place] for his ALS and during recent hospitalization at [facility] they were told nothing else can be offered to patient at this time and patient was discharge home with home hospice and PO morphine. First hospice visit was on , 04/01 however, patient became unresponsive 04/02 and they brought in to the hospital. - Goal of care and code status were also addressed at that time. Family wants to wait for a couple days to see how patient respond to current treatment before making a decision. All questions and concerns were addressed at this time. Patient family acknowledged understanding and agreement with care plan. - Patient remains a FULL CODE status. -Dicussion at bedside with interpreting service with Dr. Valdivia and family state they would disuss next steps amongst themselves and let healthcare team know of decisions The high probability of a clinically significant, sudden or life threatening deterioration of the [multiple] system(s) required my full and direct attention, intervention and personal management. The aggregate critical care time was [60] minutes. 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 Work-up in the emergency department revealed leukocytosis, elevated troponin and hyponatremia and CXR revealed moderate to large pleural effusion on the right. Patient was having agonal breathing in the emergency department and was intubated. Patient was admitted to the hospitalist service with consults to CCM, cardiology and infectious disease for further work-up. Hospital Course to Date: 04/03: Intubated and Sedated on versed gtt, RASS-5. CT head/brain noted with no acute intracranial abnormality. Plan to initiated precededx gtt and wean off versed for a RASS goal of 0 to -2. CT chect also reviewed, findings are most consistent with acute bronchopneumonia. Continue empiric IV Abx, vent adjustment per CCM. ID consulted. Continue to F/U on cultures. Titrate pressor for MAP above 65. Medical records requested from [facility]. 04/04: Remains stable on the vent, easily arousable on precedex gtt, not following commands. Plan for SAT/SBT today. PRN analgesia for CPOT greater than 3. Fevers improved, cultures and procal pending. Continue current IV abx, ID also consulted. Remains on low dose pressors, titrate pressors for a MAP above 65. 04/05: Long discussion with family with use of transiting phone with CCM regarding goals of care. Family to have meeting amongst themselves and informed care team of decisions. Fentanyl drip added for respiratory distress. Remains on Precedex drip. Biotics per ID. Hospitalist Physical - Constitutional Vitals: Temp Pulse Resp BP Pulse Ox 98.8 F 71 14 82/51 100 04/05/22 11:00 04/05/22 14:20 04/05/22 14:20 04/05/22 14:20 04/05/22 14:20 General appearance: Present: no acute distress, cachectic, other (Intubated, easily arousable on precedex gtt) - EENT Eyes: Present: PERRL, EOM intact ENT: poor dentition - Neck Neck: Present: normal ROM - Respiratory Respiratory effort: normal Respiratory: bilateral: diminished - Cardiovascular Rhythm: regular Heart Sounds: Present: S1 & S2. Absent: systolic murmur, diastolic murmur - Extremities Extremities: no ischemia, pulses intact, pulses symmetrical, No edema, normal temperature, normal color Peripheral Pulses: within normal limits - Abdominal General gastrointestinal: soft, non-tender, non-distended, normal bowel sounds - Integumentary Integumentary: Present: warm, dry - Psychiatric Psychiatric: other - Neurologic Neurologic: other (follow commands with weak hand grasp (2/5), able to tract and focus) - Allied Health Allied health notes reviewed: nursing, RT, social work HEART Score - HEART Score Troponin: Troponin T 0.048 ng/mL (0.00-0.029) H 04/02/22 19:39 Results - Labs CBC & Chem 7: 04/05/22 Unknown 04/05/22 02:50 Labs: Laboratory Last Values WBC 8.0 K/mm3 (4.5-11.0) 04/05/22 Unknown RBC 3.55 M/mm3 (3.65-5.03) L 04/05/22 Unknown Hgb 11.1 gm/dl (11.8-15.2) L 04/05/22 Unknown Hct 33.2 % (35.5-45.6) L 04/05/22 Unknown MCV 93 fl (84-94) 04/05/22 Unknown MCH 31 pg (28-32) 04/05/22 Unknown MCHC 34 % (32-34) 04/05/22 Unknown RDW 14.3 % (13.2-15.2) 04/05/22 Unknown Plt Count 113 K/mm3 (140-440) L 04/05/22 Unknown Add Manual Diff Complete 04/02/22 19:39 Total Counted 100 04/02/22 19:39 Seg Neutrophils % Snorkelling Instructor 04/02/22 19:39 Seg Neuts % (Manual) 94.0 % (40.0-70.0) H 04/02/22 19:39 Band Neutrophils % 0 % 04/02/22 19:39 Lymphocytes % (Manual) 1.0 % (13.4-35.0) L 04/02/22 19:39 Reactive Lymphs % (Man) 0 % 04/02/22 19:39 Monocytes % (Manual) 5.0 % (0.0-7.3) 04/02/22 19:39 Eosinophils % (Manual) 0 % (0.0-4.3) 04/02/22 19:39 Basophils % (Manual) 0 % (0.0-1.8) 04/02/22 19:39 Metamyelocytes % 0 % 04/02/22 19:39 Myelocytes % 0 % 04/02/22 19:39 Promyelocytes % 0 % 04/02/22 19:39 Blast Cells % 0 % 04/02/22 19:39 Nucleated RBC % Not Reportable 04/02/22 19:39 Seg Neutrophils # Man 13.4 K/mm3 (1.8-7.7) H 04/02/22 19:39 Band Neutrophils # 0.0 K/mm3 04/02/22 19:39 Lymphocytes # (Manual) 0.1 K/mm3 (1.2-5.4) L 04/02/22 19:39 Abs React Lymphs (Man) 0.0 K/mm3 04/02/22 19:39 Monocytes # (Manual) 0.7 K/mm3 (0.0-0.8) 04/02/22 19:39 Eosinophils # (Manual) 0.0 K/mm3 (0.0-0.4) 04/02/22 19:39 Basophils # (Manual) 0.0 K/mm3 (0.0-0.1) 04/02/22 19:39 Metamyelocytes # 0.0 K/mm3 04/02/22 19:39 Myelocytes # 0.0 K/mm3 04/02/22 19:39 Promyelocytes # 0.0 K/mm3 04/02/22 19:39 Blast Cells # 0.0 K/mm3 04/02/22 19:39 WBC Morphology Not Reportable 04/02/22 19:39 Hypersegmented Neuts Not Reportable 04/02/22 19:39 Hyposegmented Neuts Not Reportable 04/02/22 19:39 Hypogranular Neuts Not Reportable 04/02/22 19:39 Smudge Cells Not Reportable 04/02/22 19:39 Toxic Granulation Not Reportable 04/02/22 19:39 Toxic Vacuolation Not Reportable 04/02/22 19:39 Dohle Bodies Not Reportable 04/02/22 19:39 Pelger-Huet Anomaly Not Reportable 04/02/22 19:39 Terry Rods Not Reportable 04/02/22 19:39 Platelet Estimate Consistent w auto 04/02/22 19:39 Clumped Platelets Not Reportable 04/02/22 19:39 Plt Clumps, EDTA Not Reportable 04/02/22 19:39 Large Platelets Not Reportable 04/02/22 19:39 Giant Platelets Not Reportable 04/02/22 19:39 Platelet Satelliting Not Reportable 04/02/22 19:39 Plt Morphology Comment Not Reportable 04/02/22 19:39 RBC Morphology Not Reportable 04/02/22 19:39 Dimorphic RBCs Not Reportable 04/02/22 19:39 Polychromasia Not Reportable 04/02/22 19:39 Hypochromasia Not Reportable 04/02/22 19:39 Poikilocytosis Not Reportable 04/02/22 19:39 Anisocytosis 1+ 04/02/22 19:39 Microcytosis Not Reportable 04/02/22 19:39 Macrocytosis Not Reportable 04/02/22 19:39 Spherocytes Not Reportable 04/02/22 19:39 Pappenheimer Bodies Not Reportable 04/02/22 19:39 Sickle Cells Not Reportable 04/02/22 19:39 Target Cells Not Reportable 04/02/22 19:39 Tear Drop Cells Not Reportable 04/02/22 19:39 Ovalocytes Not Reportable 04/02/22 19:39 Helmet Cells Not Reportable 04/02/22 19:39 Patricio-Lowpoint Bodies Not Reportable 04/02/22 19:39 [place] Rings Not Reportable 04/02/22 19:39 [place] Cells Not Reportable 04/02/22 19:39 Bite Cells Not Reportable 04/02/22 19:39 Crenated Cell Not Reportable 04/02/22 19:39 Elliptocytes Not Reportable 04/02/22 19:39 Acanthocytes (Spur) Not Reportable 04/02/22 19:39 Rouleaux Not Reportable 04/02/22 19:39 Hemoglobin C Crystals Not Reportable 04/02/22 19:39 Schistocytes Not Reportable 04/02/22 19:39 Malaria parasites Not Reportable 04/02/22 19:39 [place] Bodies Not Reportable 04/02/22 19:39 Hem Pathologist Commnt No 04/02/22 19:39 PT 15.9 Sec. (12.2-14.9) H 04/02/22 19:39 INR 1.14 (0.87-1.13) H 04/02/22 19:39 APTT 28.6 Sec. (24.2-36.6) 04/02/22 19:39 ABG pH 7.455 pH Units (7.350-7.450) H 04/05/22 05:25 ABG pCO2 44.3 mm Hg 04/05/22 05:25 ABG pO2 50.7 mm Hg (80.0-90.0) L 04/05/22 05:25 ABG HCO3 30.5 mmol/L (20.0-26.0) H 04/05/22 05:25 ABG O2 Saturation 89.4 % (95.0-99.0) L 04/05/22 05:25 ABG O2 Content 14.6 (0.0-44) 04/05/22 05:25 ABG Base Excess 5.9 mmol/L (-2.0-3.0) H 04/05/22 05:25 ABG Hemoglobin 11.8 gm/dl (14.0-18.0) L 04/05/22 05:25 ABG Carboxyhemoglobin 1.0 % (0.0-5.0) 04/05/22 05:25 ABG Methemoglobin 0.3 % (0.0-1.5) 04/05/22 05:25 Oxyhemoglobin 88.2 % (95.0-99.0) L 04/05/22 05:25 FiO2 50 % 04/05/22 05:25 Sodium 142 mmol/L (137-145) 04/05/22 02:50 Potassium 3.7 mmol/L (3.6-5.0) 04/05/22 02:50 Chloride 104.0 mmol/L (98-107) 04/05/22 02:50 Carbon Dioxide 32 mmol/L (22-30) H 04/05/22 02:50 Anion Gap 10 mmol/L 04/05/22 02:50 BUN 9 mg/dL (9-20) 04/05/22 02:50 Creatinine 0.2 mg/dL (0.8-1.3) L 04/05/22 02:50 Estimated GFR > 60 ml/min 04/05/22 02:50 BUN/Creatinine Ratio 45 % 04/05/22 02:50 Glucose 110 mg/dL (75-100) H 04/05/22 02:50 Lactic Acid 1.90 mmol/L (0.7-2.0) 04/02/22 19:39 Calcium 7.9 mg/dL (8.4-10.2) L 04/05/22 02:50 Phosphorus 3.50 mg/dL (2.5-4.5) D 04/05/22 02:50 Magnesium 2.00 mg/dL (1.7-2.3) 04/05/22 02:50 Total Bilirubin 0.80 mg/dL (0.1-1.2) 04/02/22 19:39 AST 15 units/L (5-40) 04/02/22 19:39 ALT 9 units/L (7-56) 04/02/22 19:39 Alkaline Phosphatase 43 units/L (35-129) 04/02/22 19:39 Troponin T 0.048 ng/mL (0.00-0.029) H 04/02/22 19:39 C-Reactive Protein 31.60 mg/dL (0.00-1.30) H 04/04/22 04:18 Total Protein 4.6 g/dL (6.3-8.2) L 04/02/22 19:39 Albumin 2.7 g/dL (3.9-5) L 04/02/22 19:39 Albumin/Globulin Ratio 1.4 % 04/02/22 19:39 Triglycerides 80 mg/dL (2-149) 04/02/22 19:39 Cholesterol 94 mg/dL (50-199) 04/02/22 19:39 LDL Cholesterol Direct 27 mg/dL (50-130) L 04/02/22 19:39 HDL Cholesterol 47 mg/dL (40-59) 04/02/22 19:39 Cholesterol/HDL Ratio 2.00 % 04/02/22 19:39 Procalcitonin 0.08 ng/mL (<0.15) 04/04/22 04:18 Urine Color Yellow (Yellow) 04/02/22 Unknown Urine Turbidity Clear (Clear) 04/02/22 Unknown Urine pH 6.0 (5.0-7.0) 04/02/22 Unknown Ur Specific [place] 1.015 (1.003-1.030) 04/02/22 Unknown Urine Protein 30 mg/dl mg/dL (Negative) 04/02/22 Unknown Urine Glucose (UA) Neg mg/dL (Negative) 04/02/22 Unknown Urine Ketones 20 mg/dL (Negative) 04/02/22 Unknown Urine Blood Neg (Negative) 04/02/22 Unknown Urine Nitrite Neg (Negative) 04/02/22 Unknown Urine Bilirubin Neg (Negative) 04/02/22 Unknown Urine Urobilinogen < 2.0 mg/dL (<2.0) 04/02/22 Unknown Ur Leukocyte Esterase Neg (Negative) 04/02/22 Unknown Urine WBC (Auto) 6.0 /HPF (0.0-6.0) 04/02/22 Unknown Urine RBC (Auto) 2.0 /HPF (0.0-6.0) 04/02/22 Unknown U Epithel Cells (Auto) < 1.0 /HPF (0-13.0) 04/02/22 Unknown Urine Bacteria (Auto) 1+ /HPF (Negative) 04/02/22 Unknown Urine Mucus Few /HPF 04/02/22 Unknown Microbiology: Microbiology 04/02/22 19:16 Tracheal Aspirate Sputum Culture - Final Pseudomonas Aeruginosa Enterobacter Aerogenes 04/02/22 19:39 Peripheral/Venous Blood Culture - Preliminary 04/02/22 19:03 Urine,Catheterized - Indwelling Catheter Urine Culture - Preliminary NO GROWTH AFTER 24 HOURS 04/02/22 19:39 Peripheral/Venous Blood Culture - Preliminary NO GROWTH AFTER 48 HOURS Perez/IV: Voiding Method Indwelling Catheter Active Medications - Current Medications Current Medications: Generic Name Dose Route Start Last Admin Trade Name Freq PRN Reason Stop Dose Admin Acetaminophen 650 mg 04/02/22 23:53 Acetaminophen 325 Mg Tab PO Q6H PRN Pain MILD(1-3)/Fever >100.5/FAITH Docusate Sodium 100 mg 04/03/22 15:00 04/05/22 09:05 Docusate Sodium 100 Mg/10 Ml Oral Liqd PO 100 mg BID SEGUNDO Administration Famotidine 20 mg 04/03/22 10:00 04/05/22 09:05 Famotidine 20 Mg/2 Ml Inj IV 20 mg QDAY SEGUNDO Administration Fentanyl 50 mcg 04/04/22 15:56 04/05/22 07:56 Fentanyl 100 Mcg/2 Ml Inj IV 50 mcg Q2HR PRN Administration For CPOT of greater than 2 Heparin Sodium (Porcine) 5,000 unit 04/03/22 06:00 04/05/22 13:42 Heparin 5,000 Unit/1 Ml Vial SUB-Q 5,000 unit Q8HR SEGUNDO Administration NORepinephrine/NS 8 MG-250 ML 8 mg in 250 mls @ 3.75 mls/hr 04/02/22 22:00 04/05/22 13:48 Norepinephrine/Ns 8 Mg-250 Ml (Double Conc) IV 2 mcg/min TITRATE SEGUNDO 3.75 mls/hr Titration Protocol 2 MCG/MIN Vancomycin HCl 750 mg/ Sodium 265 mls @ 166.667 mls/hr 04/03/22 18:00 04/05/22 08:17 Chloride IV Infused Q12H SEGUNDO Infusion Dexmedetomidine HCl 400 mcg/ 104 mls @ 2.434 mls/hr 04/03/22 07:00 04/05/22 14:14 Sodium Chloride IV 0.9 mcg/kg/hr TITRATE SEGUNDO 10.951 mls/hr Titration Protocol 0.2 MCG/KG/HR Cefepime HCl 2 gm in 100 mls @ 200 mls/hr 04/03/22 18:00 04/05/22 07:11 Cefepime/Ns 2 Gm/100 Ml IV Infused Q12H SEGUNDO Infusion Protocol Fentanyl Citrate 2,000 mcg in 100 mls @ 2.34 mls/hr 04/05/22 11:00 04/05/22 13:48 Fentanyl Drip Premix IV 3 mcg/kg/hr TITR SEGUNDO 7.02 mls/hr Titration Protocol 1 MCG/KG/HR Magnesium Hydroxide 30 ml 04/02/22 23:53 Magnesium Hydroxide (Mom) Oral Liqd Udc PO Q4H PRN Constipation Ondansetron HCl 4 mg 04/02/22 23:53 Ondansetron 4 Mg/2 Ml Inj IV Q8H PRN Nausea And Vomiting Senna 17.6 mg 04/03/22 22:00 04/05/22 09:05 Sennosides Oral Liqd 8.8 Mg/5 Ml Oral Liqd PO 17.6 mg Q12HR SEGUNDO Administration Sodium Chloride 10 ml 04/03/22 10:00 04/05/22 09:06 Sodium Chloride 0.9% 10 Ml Flush Syringe IV 10 ml BID SEGUNDO Administration Sodium Chloride 10 ml 04/02/22 23:53 Sodium Chloride 0.9% 10 Ml Flush Syringe IV PRN PRN LINE FLUSH Nutrition/Malnutrition Assess - Dietary Evaluation Nutrition/Malnutrition Findings: Nutrition Notes Start: 04/04/22 13:13 Freq: Status: Active Protocol: Document 04/04/22 13:13 RS (Rec: 04/04/22 13:34 RS [id number]) Nutrition Notes Need for Assessment generated from: MD Order Initial or Follow up Assessment Current Diagnosis Respiratory Failure Other Pertinent Diagnosis Community-acquired pneu, ALS Labs/Tests K+: 3.5 CO2:31 Cr: 0.3 Glu:153 PO4: 1.4 M.5 Pertinent Medications Norepinephrine NS at 11.25mL/ hr Height 5 ft 4.8 in Weight 46.8 kg [place] Body Weight (kg) 61.27 BMI 17.2 Intake Prior to Admission Poor Weight change and time frame ENRRIQUE wt hx Weight Status Underweight Subjective/Other Information MD consult for TF. Pt has hx of ALS, family reports pt has difficulty chewing/swallowing foods. Pt is intubated. Pt noted some mild muscle wasting in temporal region, protruding clavical bone. Burn Absent Trauma Absent GI Symptoms Constipation Food Allergy No Current % PO Negligible Minimum of two criteria No Muscle Mass Mild Depletion (non-severe) #1 Nutrition Diagnosis Inadequate oral intake Etiology community acquired bronchopneumonia As Evidenced by Signs and Symptoms pt intubated and cannot consume food PO Is patient on ventilator? Yes Is Patient Ambulatory and/or Out of Bed No REE-([facility]-confined to bed) 1476.744 Kcal/Kg value to use for calculation 35 Approximate Energy Requirements Using 1638 kcal/Kg Calculation Used for Recommendations Kcal/kg Additional Notes PRO needs: 56-94g/day (>1.2-2g /kg BW/day) Fluid needs: 1mL/kcal or per MD Nutrition Intervention Change Diet Order: Start TF Nutrition Support: Vital AF 1.2 at 60mL/hr. Free water flush of 125mL q4hr Kcal 1,728 Protein (gm) 108 Fluid (mL) 1,168 Goal #1 TF initiation/tolerance Goal #2 Pt will meet at least 75% of kcal/PRO needs via TF Goal #3 Wt gain/maintenance Anticipated Discharge Needs: ENRRIQUE at this time Follow-Up By: 04/06/22 Additional Comments F/U for TF tolerance/ initiation, labs <DIXIE BROWN - Last Filed: 04/10/22 07:38> Assessment and Plan Assessment and plan: I saw and evaluated the patient. I agree with the findings and the plan of care as documented in the Nurse Practitioner's~note, with the following corrections and additions. Hospitalist Physical - Constitutional Vitals: Temp Pulse Resp BP Pulse Ox 98.0 F 109 H 14 116/66 89 04/10/22 04:00 04/10/22 07:30 04/10/22 07:30 04/10/22 07:30 04/10/22 07:30 HEART Score - HEART Score Troponin: Troponin T 0.031 ng/mL (0.00-0.029) H 04/08/22 17:47 Results - Labs CBC & Chem 7: 04/10/22 04:48 04/10/22 04:48 Labs: Laboratory Last Values WBC 8.2 K/mm3 (4.5-11.0) 04/10/22 04:48 RBC 2.91 M/mm3 (3.65-5.03) L 04/10/22 04:48 Hgb 9.1 gm/dl (11.8-15.2) L 04/10/22 04:48 Hct 27.7 % (35.5-45.6) L 04/10/22 04:48 MCV 95 fl (84-94) H 04/10/22 04:48 MCH 31 pg (28-32) 04/10/22 04:48 MCHC 33 % (32-34) 04/10/22 04:48 RDW 13.7 % (13.2-15.2) 04/10/22 04:48 Plt Count 156 K/mm3 (140-440) 04/10/22 04:48 Lymph % (Auto) 4.3 % (13.4-35.0) L 04/07/22 03:51 Gem % (Auto) 8.8 % (0.0-7.3) H 04/07/22 03:51 Eos % (Auto) 0.1 % (0.0-4.3) 04/07/22 03:51 Baso % (Auto) 0.2 % (0.0-1.8) 04/07/22 03:51 Lymph # (Auto) 0.6 K/mm3 (1.2-5.4) L 04/07/22 03:51 Gem # (Auto) 1.3 K/mm3 (0.0-0.8) H 04/07/22 03:51 Eos # (Auto) 0.0 K/mm3 (0.0-0.4) 04/07/22 03:51 Baso # (Auto) 0.0 K/mm3 (0.0-0.1) 04/07/22 03:51 Add Manual Diff Complete 04/02/22 19:39 Total Counted 100 04/02/22 19:39 Seg Neutrophils % 86.6 % (40.0-70.0) H 04/07/22 03:51 Seg Neuts % (Manual) 94.0 % (40.0-70.0) H 04/02/22 19:39 Band Neutrophils % 0 % 04/02/22 19:39 Lymphocytes % (Manual) 1.0 % (13.4-35.0) L 04/02/22 19:39 Reactive Lymphs % (Man) 0 % 04/02/22 19:39 Monocytes % (Manual) 5.0 % (0.0-7.3) 04/02/22 19:39 Eosinophils % (Manual) 0 % (0.0-4.3) 04/02/22 19:39 Basophils % (Manual) 0 % (0.0-1.8) 04/02/22 19:39 Metamyelocytes % 0 % 04/02/22 19:39 Myelocytes % 0 % 04/02/22 19:39 Promyelocytes % 0 % 04/02/22 19:39 Blast Cells % 0 % 04/02/22 19:39 Nucleated RBC % Not Reportable 04/02/22 19:39 Seg Neutrophils # 12.7 K/mm3 (1.8-7.7) H 04/07/22 03:51 Seg Neutrophils # Man 13.4 K/mm3 (1.8-7.7) H 04/02/22 19:39 Band Neutrophils # 0.0 K/mm3 04/02/22 19:39 Lymphocytes # (Manual) 0.1 K/mm3 (1.2-5.4) L 04/02/22 19:39 Abs React Lymphs (Man) 0.0 K/mm3 04/02/22 19:39 Monocytes # (Manual) 0.7 K/mm3 (0.0-0.8) 04/02/22 19:39 Eosinophils # (Manual) 0.0 K/mm3 (0.0-0.4) 04/02/22 19:39 Basophils # (Manual) 0.0 K/mm3 (0.0-0.1) 04/02/22 19:39 Metamyelocytes # 0.0 K/mm3 04/02/22 19:39 Myelocytes # 0.0 K/mm3 04/02/22 19:39 Promyelocytes # 0.0 K/mm3 04/02/22 19:39 Blast Cells # 0.0 K/mm3 04/02/22 19:39 WBC Morphology Not Reportable 04/02/22 19:39 Hypersegmented Neuts Not Reportable 04/02/22 19:39 Hyposegmented Neuts Not Reportable 04/02/22 19:39 Hypogranular Neuts Not Reportable 04/02/22 19:39 Smudge Cells Not Reportable 04/02/22 19:39 Toxic Granulation Not Reportable 04/02/22 19:39 Toxic Vacuolation Not Reportable 04/02/22 19:39 Dohle Bodies Not Reportable 04/02/22 19:39 Pelger-Huet Anomaly Not Reportable 04/02/22 19:39 Terry Rods Not Reportable 04/02/22 19:39 Platelet Estimate Consistent w auto 04/02/22 19:39 Clumped Platelets Not Reportable 04/02/22 19:39 Plt Clumps, EDTA Not Reportable 04/02/22 19:39 Large Platelets Not Reportable 04/02/22 19:39 Giant Platelets Not Reportable 04/02/22 19:39 Platelet Satelliting Not Reportable 04/02/22 19:39 Plt Morphology Comment Not Reportable 04/02/22 19:39 RBC Morphology Not Reportable 04/02/22 19:39 Dimorphic RBCs Not Reportable 04/02/22 19:39 Polychromasia Not Reportable 04/02/22 19:39 Hypochromasia Not Reportable 04/02/22 19:39 Poikilocytosis Not Reportable 04/02/22 19:39 Anisocytosis 1+ 04/02/22 19:39 Microcytosis Not Reportable 04/02/22 19:39 Macrocytosis Not Reportable 04/02/22 19:39 Spherocytes Not Reportable 04/02/22 19:39 Pappenheimer Bodies Not Reportable 04/02/22 19:39 Sickle Cells Not Reportable 04/02/22 19:39 Target Cells Not Reportable 04/02/22 19:39 Tear Drop Cells Not Reportable 04/02/22 19:39 Ovalocytes Not Reportable 04/02/22 19:39 Helmet Cells Not Reportable 04/02/22 19:39 Patricio-[place] Bodies Not Reportable 04/02/22 19:39 [place] Rings Not Reportable 04/02/22 19:39 [place] Cells Not Reportable 04/02/22 19:39 Bite Cells Not Reportable 04/02/22 19:39 Crenated Cell Not Reportable 04/02/22 19:39 Elliptocytes Not Reportable 04/02/22 19:39 Acanthocytes (Spur) Not Reportable 04/02/22 19:39 Rouleaux Not Reportable 04/02/22 19:39 Hemoglobin C Crystals Not Reportable 04/02/22 19:39 Schistocytes Not Reportable 04/02/22 19:39 Malaria parasites Not Reportable 04/02/22 19:39 [place] Bodies Not Reportable 04/02/22 19:39 Hem Pathologist Commnt No 04/02/22 19:39 PT 15.2 Sec. (12.2-14.9) H 04/07/22 03:51 INR 1.08 (0.87-1.13) 04/07/22 03:51 APTT 35.7 Sec. (24.2-36.6) 04/07/22 03:51 ABG pH 7.364 pH Units (7.350-7.450) 04/09/22 13:00 ABG pCO2 68.5 mm Hg 04/09/22 13:00 ABG pO2 66.6 mm Hg (80.0-90.0) L 04/09/22 13:00 ABG HCO3 38.2 mmol/L (20.0-26.0) H 04/09/22 13:00 ABG O2 Saturation 94.4 % (95.0-99.0) L 04/09/22 13:00 ABG O2 Content 14.0 (0.0-44) 04/09/22 13:00 ABG Base Excess 10.7 mmol/L (-2.0-3.0) H 04/09/22 13:00 ABG Hemoglobin 10.7 gm/dl (14.0-18.0) L 04/09/22 13:00 ABG Carboxyhemoglobin 1.3 % (0.0-5.0) 04/09/22 13:00 ABG Methemoglobin 0.4 % (0.0-1.5) 04/09/22 13:00 Oxyhemoglobin 92.8 % (95.0-99.0) L 04/09/22 13:00 FiO2 30 % 04/09/22 13:00 Sodium 138 mmol/L (137-145) 04/10/22 04:48 Potassium 4.0 mmol/L (3.6-5.0) 04/10/22 04:48 Chloride 95.7 mmol/L (98-107) L 04/10/22 04:48 Carbon Dioxide 38 mmol/L (22-30) H 04/10/22 04:48 Anion Gap 8 mmol/L 04/10/22 04:48 BUN 12 mg/dL (9-20) 04/10/22 04:48 Creatinine < 0.2 mg/dL (0.8-1.3) L 04/10/22 04:48 Estimated GFR > 60 ml/min 04/10/22 04:48 BUN/Creatinine Ratio 60 % 04/10/22 04:48 Glucose 118 mg/dL (75-100) H 04/10/22 04:48 POC Glucose 127 mg/dL (70-105) H 04/10/22 05:34 Lactic Acid 1.90 mmol/L (0.7-2.0) 04/02/22 19:39 Calcium 8.4 mg/dL (8.4-10.2) 04/10/22 04:48 Phosphorus 3.50 mg/dL (2.5-4.5) D 04/05/22 02:50 Magnesium 2.00 mg/dL (1.7-2.3) 04/05/22 02:50 Total Bilirubin 0.80 mg/dL (0.1-1.2) 04/02/22 19:39 AST 15 units/L (5-40) 04/02/22 19:39 ALT 9 units/L (7-56) 04/02/22 19:39 Alkaline Phosphatase 43 units/L (35-129) 04/02/22 19:39 Total Creatine Kinase 46 units/L (55-170) L 04/08/22 17:47 CK-MB (CK-2) 2.6 ng/mL (0.0-4.0) 04/08/22 17:47 CK-MB (CK-2) Rel Index 5.6 (0-4) H 04/08/22 17:47 Troponin T 0.031 ng/mL (0.00-0.029) H 04/08/22 17:47 C-Reactive Protein 31.60 mg/dL (0.00-1.30) H 04/04/22 04:18 Total Protein 4.6 g/dL (6.3-8.2) L 04/02/22 19:39 Albumin 2.7 g/dL (3.9-5) L 04/02/22 19:39 Albumin/Globulin Ratio 1.4 % 04/02/22 19:39 Triglycerides 80 mg/dL (2-149) 04/02/22 19:39 Cholesterol 94 mg/dL (50-199) 04/02/22 19:39 LDL Cholesterol Direct 27 mg/dL (50-130) L 04/02/22 19:39 HDL Cholesterol 47 mg/dL (40-59) 04/02/22 19:39 Cholesterol/HDL Ratio 2.00 % 04/02/22 19:39 Procalcitonin 0.08 ng/mL (<0.15) 04/04/22 04:18 Urine Color Aracely (Yellow) 04/05/22 17:45 Urine Turbidity Cloudy (Clear) 04/05/22 17:45 Urine pH 5.0 (5.0-7.0) 04/05/22 17:45 Ur Specific Meh[place] 1.021 (1.003-1.030) 04/05/22 17:45 Urine Protein 30 mg/dl mg/dL (Negative) 04/05/22 17:45 Urine Glucose (UA) Neg mg/dL (Negative) 04/05/22 17:45 Urine Ketones Tr mg/dL (Negative) 04/05/22 17:45 Urine Blood Sm (Negative) 04/05/22 17:45 Urine Nitrite Neg (Negative) 04/05/22 17:45 Urine Bilirubin Neg (Negative) 04/05/22 17:45 Urine Urobilinogen < 2.0 mg/dL (<2.0) 04/05/22 17:45 Ur Leukocyte Esterase Tr (Negative) 04/05/22 17:45 Urine WBC (Auto) 8.0 /HPF (0.0-6.0) H 04/05/22 17:45 Urine RBC (Auto) 3.0 /HPF (0.0-6.0) 04/05/22 17:45 U Epithel Cells (Auto) 2.0 /HPF (0-13.0) 04/05/22 17:45 Urine Bacteria (Auto) 1+ /HPF (Negative) 05/27/22 Unknown Hyaline Casts 1 /LPF 04/05/22 17:45 Urine Mucus 3+ /HPF 04/05/22 17:45 Nasal Screen MRSA (PCR) Negative (Negative) 04/05/22 12:37 Vancomycin Trough 6.0 ug/mL (5.0-20.0) 04/05/22 18:53 Coronavirus (PCR) Negative (Negative) 04/07/22 14:52 Microbiology: Microbiology 04/05/22 18:53 Peripheral/Venous Blood Culture - Preliminary NO GROWTH AFTER 4 DAYS 04/05/22 18:53 Peripheral/Venous Blood Culture - Preliminary NO GROWTH AFTER 4 DAYS Perez/IV: Voiding Method Condom Catheter Active Medications - Current Medications Current Medications: Generic Name Dose Route Start Last Admin Trade Name Freq PRN Reason Stop Dose Admin Acetaminophen 650 mg 04/02/22 23:53 04/08/22 09:33 Acetaminophen 325 Mg Tab PO 650 mg Q6H PRN Administration Pain MILD(1-3)/Fever >100.5/FAITH Albuterol 2.5 mg 04/06/22 16:00 04/09/22 23:29 Albuterol 2.5 Mg/3 Ml Nebu IH 2.5 mg Q8HRT SEGUNDO Administration Bisacodyl 10 mg 04/07/22 09:44 Bisacodyl 10 Mg Rect Supp FL QDAY PRN Constipation Dextrose 50 ml 04/06/22 17:54 Dextrose 50% In Water (25gm) 50 Ml Syringe IV Q30MIN PRN Hypoglycemia Protocol Docusate Sodium 100 mg 04/03/22 15:00 04/09/22 22:46 Docusate Sodium 100 Mg/10 Ml Oral Liqd PO 100 mg BID SEGUNDO Administration Famotidine 20 mg 04/06/22 10:00 04/09/22 22:46 Famotidine 20 Mg Tab FEEDTUBE 20 mg BID SEGUNDO Administration Fentanyl 50 mcg 04/04/22 15:56 04/10/22 04:31 Fentanyl 100 Mcg/2 Ml Inj IV 50 mcg Q2HR PRN Administration For CPOT of greater than 2 Heparin Sodium (Porcine) 5,000 unit 04/03/22 06:00 04/10/22 05:59 Heparin 5,000 Unit/1 Ml Vial SUB-Q 5,000 unit Q8HR SEGUNDO Administration NORepinephrine/NS 8 MG-250 ML 8 mg in 250 mls @ 3.75 mls/hr 04/02/22 22:00 04/09/22 16:44 Norepinephrine/Ns 8 Mg-250 Ml (Double Conc) IV 0 mcg/min TITRATE SEGUNDO 0 mls/hr Titration Protocol 2 MCG/MIN Dexmedetomidine HCl 400 mcg/ 104 mls @ 2.434 mls/hr 04/03/22 07:00 04/10/22 0 4:31 Sodium Chloride IV 1.2 mcg/kg/hr TITRATE SEGUNDO 14.602 mls/hr Administration Protocol 0.2 MCG/KG/HR Fentanyl Citrate 2,000 mcg in 100 mls @ 2.34 mls/hr 04/05/22 11:00 04/10/22 00:47 Fentanyl Drip Premix IV 4 mcg/kg/hr TITR SEGUNDO 9.36 mls/hr Administration Protocol 1 MCG/KG/HR Insulin Human Regular 0 units 04/06/22 18:00 04/10/22 06:00 Insulin Regular, Human 100 Units/1 Ml SUB-Q Not Given Q6H [facility] Protocol Magnesium Hydroxide 30 ml 04/02/22 23:53 Magnesium Hydroxide (Mom) Oral Liqd Udc PO Q4H PRN Constipation Metoprolol Tartrate 12.5 mg 04/09/22 14:00 04/10/22 06:07 Metoprolol Tartrate 25 Mg Tab PO 12.5 mg Q6HR SEGUNDO Administration Nitroglycerin 0.2 mg 04/10/22 06:00 04/10/22 06:00 Nitroglycerin 0.1 Mg Patch 24hr TD Not Given QDAY@0600 [facility] Ondansetron HCl 4 mg 04/02/22 23:53 Ondansetron 4 Mg/2 Ml Inj IV Q8H PRN Nausea And Vomiting Polyethylene Glycol 17 gm 04/08/22 10:00 04/09/22 09:03 Polyethylene Glycol 3350 17 Gm Powder PO 17 gm QDAY SEGUNDO Administration Quetiapine Fumarate 50 mg 04/09/22 16:00 04/10/22 05:59 Quetiapine 25 Mg Tab PO 50 mg 0600,1600 SEGUNDO Administration Quetiapine Fumarate 25 mg 04/09/22 22:00 04/09/22 22:46 Quetiapine 25 Mg Tab PO 25 mg QHS SEGUNDO Administration Senna 17.6 mg 04/03/22 22:00 04/09/22 22:45 Sennosides Oral Liqd 8.8 Mg/5 Ml Oral Liqd PO 17.6 mg Q12HR SEGUNDO Administration Sodium Chloride 10 ml 04/03/22 10:00 04/09/22 22:47 Sodium Chloride 0.9% 10 Ml Flush Syringe IV 10 ml BID SEGUNDO Administration Sodium Chloride 10 ml 04/02/22 23:53 Sodium Chloride 0.9% 10 Ml Flush Syringe IV PRN PRN LINE FLUSH Nutrition/Malnutrition Assess - Dietary Evaluation Nutrition/Malnutrition Findings: Nutrition Notes Start: 04/04/22 13:13 Freq: Status: Active Protocol: Document 04/06/22 12:38 COLLEEN (Rec: 04/06/22 13:23 COLLEEN [id number]) Nutrition Notes Initial or Follow up Reassessment Current Diagnosis Sepsis,Respiratory Failure, Malnutrition Other Pertinent Diagnosis HAP, HFpEF, Elevated Troponin, ALS, Hypokalemia, Hypotension , ... Current Diet TF-Vital AF 1.2 Inderjit @ 50 ml/hr (since D 04/06) Labs/Tests 04/06: K 3.0, Crea <0.2, Glu 130, Ca 8.1. Pertinent Medications 04/06: KCl 40mEq, others nutritionally unremarkable. Height 5 ft 4.8 in Weight 46.8 kg [place] Body Weight (kg) 61.27 BMI 17.2 Intake Prior to Admission Poor Weight change and time frame No body weight change reported in 2 days. Weight Status Underweight Subjective/Other Information RD consult for routine F/U on TF tolerance/ continuation, and Low BMI assessment. Pt continues TF as prescribed, well tolerated, according to RN. Pt is on Mechanical ventilation, O2 saturation @ 96%, according to Physical Assessment Histroy notes. Pt presents constipation, according to Physical Assessment Histroy notes. Pt is swallow and Chewing impaired, according to Physical Assessment Histroy notes. Pt is alert and oriented, but continues on Mechanical Ventilation, according to Progress notes. Pt's Low BMI seems to correspond to a natural body composition, and not related to a sudden loss of body weight nor chronic malnutrition, since no signs of concern were mentioned in the Physical Assessment History or the Progress notes. Percent of energy/protein needs met: Prescribed TF-Vital AF 1.2 Inderjit @ 50 ml/hr provides for energy/protein needs (1,450 Kcal/91 g) during LOS, 98% Kcal; 100% AA. Burn Absent Trauma Absent GI Symptoms Constipation Difficulty In Swallowing,Chewing Food Allergy No Skin Integrity/Comment Unspecified Area of Concern. Current % PO Other Minimum of two criteria No #1 Nutrition Diagnosis Swallowing difficulty,Biting/ Chewing (masticatory) difficulty Comments: Change Nutrition Diagnostic for precision. Etiology ALS, Mechanical Ventilation. As Evidenced by Signs and Symptoms Pt currently on TF. Is patient on ventilator? Yes Is Patient Ambulatory and/or Out of Bed No REE-([facility]-confined to bed) [phone] Calculation Used for Recommendations [facility] Additional Notes Protein: 1.2-2 g/Kg IBW; 73- 122 g/day. Fluids: 1 ml/Kcal, or as per MD. Nutrition Intervention Nutrition Support: Continue TF-Vital AF 1.2 Inderjit @ 50 ml/hr. Flush: 80 ml water Q 4 hr, or as per MD. Kcal 1,450 Protein (gm) 91 Carbohydrates (gm) 134 Fat (gm) 65 Fluid (mL) 980 Fiber (gm) 6 % RDI: 98% Kcal; 100% AA. Goal #1 Provide at least 75% of energy /protein needs through Enteral Feeding during LOS. Goal #2 Maintain body weight within +/ -3% of admission body weight during LOS. Follow-Up By: 04/13/22 Additional Comments Continue monitoring TF tolerance and BM.
[2022-04-05] MEDS: ACETAMINOPHEN 325 MG TAB PO PRN (16:58)
[2022-04-05] MEDS ORDERED: SODIUM CHLORIDE 0.9% 1000 ML 1,000 ML IV ONE ×2 (17:45→22:00)
[2022-04-05 18:23] LABS: Bilirubin,Urine NEG (Negative); Blood,Urine SM (Negative); Color,Urine Amber (Yellow); Hyaline Casts,Urine 1 /LPF; Mucus,Urine 3+ /HPF; Urobilinogen,Urine < 2.0 mg/dL (<2.0)
[2022-04-06] MEDS: fentaNYL DRIP Premix 2,000 MCG/100 ML BAG IV SCH ×2 (03:10→20:15)
[2022-04-06] MEDS: fentaNYL 100 MCG/2 ML INJ IV PRN (04:10)
[2022-04-06] MEDS: ACETAMINOPHEN 325 MG TAB PO PRN ×2 (04:21→20:00)
[2022-04-06 05:39] LABS: Hematocrit 35.1 % (35.5-45.6); Hemoglobin 11.5 gm/dl (11.8-15.2); Mean Corpuscular HGB Conc 33 % (32-34); Mean Corpuscular Volume 93 fl (84-94); Platelet Count 114 K/mm3 (140-440); Red Blood Count 3.79 M/mm3 (3.65-5.03)
[2022-04-06 06:17] LABS: BUN/Creatinine Ratio 55; Blood Urea Nitrogen 11 mg/dL (9-20); Calcium 8.1 mg/dL (8.4-10.2); Hemolysis Index 4
[2022-04-06] MEDS: VANCOMYCIN 750 MG in SODIUM CHLORIDE 0.9% 250ML 250 ML IV SCH (06:30)
[2022-04-06] MEDS: HEPARIN 5,000 UNIT/1 ML VIAL SUB-Q SCH ×3 (06:31→22:36)
[2022-04-06] MEDS: CEFEPIME/NS 2 GM/100 ML 2 GM/100 ML BAG IV SCH ×2 (06:32→19:00)
--- NOTE | 2022-04-06 07:09 | XRay Report ---
CHEST 1 VIEW INDICATION / CLINICAL INFORMATION: Respiratory Failure. COMPARISON: Chest x-ray 04/05/2022 FINDINGS: SUPPORT DEVICES: No significant change in positioning of tubes/lines. No evidence of malposition. HEART / MEDIASTINUM: Cardiomediastinal silhouette shifted rightward. LUNGS / PLEURA: Worsening opacification of the right hemithorax compatible with worsening atelectasis . Right bronchial cut off. BONES: No significant osseous abnormality. ADDITIONAL FINDINGS: No significant additional findings. IMPRESSION: 1. Worsening atelectasis of the right lung. There is abrupt cut off of the right bronchus which may r eflect fluid impaction. Left lung remains clear. Signer Name: Trae Mcfarland II, MD Signed: 04/06/2022 7:05 AM Workstation Name: [id number]
[2022-04-06 08:57] LABS: ABG Base Excess 4.9 mmol/L (-2.0-3.0); ABG HCO3 30.5 mmol/L (20.0-26.0); ABG Methemoglobin 0.3 % (0.0-1.5); ABG Oxygen Saturation 93.3 % (95.0-99.0); ABG PCO2 49.3 mm Hg; ABG PH 7.409 pH Units (7.350-7.450); ABG PO2 60.8 mm Hg (80.0-90.0)
--- NOTE | 2022-04-06 10:31 | Progress Note ---
Assessment and Plan 1. Community-acquired bronchopneumonia 2. Respiratory failure s/p intubation on mechanical ventilator. 3. Equivocal serum troponin elevation rule out ischemic coronary artery disease 4. Cardiomyopathy unspecified left ventricular ejection fraction 40 to 45% 5. ALS Plan. Continue antibiotic treatment for bronchopneumonia as per pulmonary. Correct hypokalemia as per the hospitalist. Start carvedilol and ADRIA inhibitor's. Patient is not a candidate for invasive cardiac management we will continue conservative management Subjective Date of service: 04/06/22 Interval history: Patient is alert and responsive to questions he is still remains intubated on mechanical ventilator. Objective Vital Signs Temp Pulse Pulse Resp BP Pulse Ox 04/06/22 07:46 97 H 118/84 96 04/06/22 06:11 100 H 19 114/76 97 04/06/22 06:00 105 H 16 114/76 99 04/06/22 05:51 103 H 15 108/75 100 04/06/22 05:41 98 H 16 94/62 98 04/06/22 05:30 82 14 94/62 98 04/06/22 05:21 83 14 88/55 95 04/06/22 05:11 84 14 88/55 95 04/06/22 05:00 85 14 88/55 93 04/06/22 04:51 86 14 122/77 93 04/06/22 04:41 104 H 20 100/67 94 04/06/22 04:30 87 14 100/67 93 04/06/22 04:21 92 H 14 99/68 91 04/06/22 04:11 95 H 14 123/83 91 04/06/22 04:10 97 H 15 123/83 92 04/06/22 04:00 101.4 F H 114 H 100 H 22 123/83 90 04/06/22 03:51 106 H 20 119/87 89 04/06/22 03:41 100 H 19 113/69 92 04/06/22 03:30 81 14 113/69 89 04/06/22 03:21 77 23 120/84 92 04/06/22 03:11 94 H 19 143/74 04/06/22 03:00 92 H 16 143/74 96 04/06/22 02:51 93 H 19 135/90 98 04/06/22 02:41 94 H 17 131/85 97 04/06/22 02:30 93 H 15 131/85 100 04/06/22 02:21 113 H 23 127/82 98 04/06/22 02:11 86 17 128/84 98 04/06/22 02:00 97 H 20 128/84 98 04/06/22 01:51 84 17 121/82 98 04/06/22 01:41 93 H 16 130/79 99 04/06/22 01:30 87 19 130/79 97 04/06/22 01:21 87 19 72/57 97 04/06/22 01:11 78 20 119/81 99 04/06/22 01:01 92 H 21 85/58 98 04/06/22 00:51 87 16 112/69 99 04/06/22 00:41 87 20 112/71 98 04/06/22 00:30 93 H 21 119/81 98 04/06/22 00:21 77 19 109/73 99 04/06/22 00:11 76 14 112/71 98 04/06/22 00:00 99.0 F 70 90 16 112/71 99 04/05/22 23:51 85 19 107/67 98 04/05/22 23:41 69 14 106/64 99 04/05/22 23:30 71 16 105/65 98 04/05/22 23:28 73 117/75 99 04/05/22 23:21 89 19 117/75 99 04/05/22 23:11 71 14 106/64 99 04/05/22 23:00 74 14 106/64 100 04/05/22 22:51 70 14 105/65 98 04/05/22 22:41 76 17 103/66 99 04/05/22 22:30 71 14 103/66 100 04/05/22 22:21 70 15 116/75 100 04/05/22 22:13 61 14 111/65 100 04/05/22 22:11 64 14 111/65 100 04/05/22 22:00 75 17 111/65 100 04/05/22 21:51 75 17 108/66 100 04/05/22 21:41 71 14 102/63 100 04/05/22 21:30 68 14 102/63 100 04/05/22 21:21 76 16 99/61 99 04/05/22 21:11 64 14 98/58 100 04/05/22 21:00 62 14 99/63 99 04/05/22 20:51 62 14 94/58 98 04/05/22 20:41 65 17 98/58 100 04/05/22 20:30 61 14 98/58 99 04/05/22 20:21 84 17 98/59 96 04/05/22 20:11 59 L 14 103/64 98 04/05/22 20:00 99.1 F 57 L 85 18 103/64 100 04/05/22 19:51 56 L 14 101/62 100 04/05/22 19:41 75 14 100/63 99 04/05/22 19:37 65 100/63 100 04/05/22 19:30 69 16 100/63 98 04/05/22 19:21 73 19 99/63 98 04/05/22 19:11 65 15 108/66 98 04/05/22 19:00 55 L 14 108/66 99 04/05/22 18:51 58 L 14 106/67 98 04/05/22 18:41 57 L 14 109/70 99 04/05/22 18:30 57 L 14 109/70 99 04/05/22 18:21 58 L 14 106/68 100 04/05/22 18:20 99.5 F 04/05/22 18:11 60 14 98/62 100 04/05/22 18:00 59 L 14 98/62 100 04/05/22 17:51 62 14 82/48 97 04/05/22 17:41 88 16 87/55 95 04/05/22 17:30 89 15 87/55 97 04/05/22 17:21 85 16 92/57 99 04/05/22 17:11 76 14 92/64 99 04/05/22 17:00 101.4 F H 81 14 92/64 97 04/05/22 16:51 94 H 14 89/56 98 04/05/22 16:41 69 14 89/54 99 04/05/22 16:30 69 14 89/54 99 04/05/22 16:21 69 14 87/57 100 04/05/22 16:11 68 14 91/58 99 04/05/22 16:00 68 68 14 91/58 99 04/05/22 15:51 70 14 91/57 99 04/05/22 15:41 68 14 91/58 99 05/30/22 15:38 67 94/59 99 04/05/22 15:30 67 14 91/58 100 04/05/22 15:21 68 14 101/65 100 04/05/22 15:10 66 14 100 04/05/22 15:00 98.4 F 66 14 100 04/05/22 14:50 65 14 104/66 100 04/05/22 14:40 65 14 96/64 100 04/05/22 14:30 65 14 96/64 100 04/05/22 14:20 71 14 82/51 100 04/05/22 14:10 74 14 86/55 98 04/05/22 14:00 79 14 86/55 100 04/05/22 13:50 78 14 83/50 97 04/05/22 13:40 96 H 22 93/58 98 04/05/22 13:30 90 15 93/58 98 04/05/22 13:20 100 H 15 92/57 99 04/05/22 13:10 79 14 97/71 98 04/05/22 13:00 105 H 20 97/71 96 04/05/22 12:50 76 14 102/67 97 04/05/22 12:40 95 H 19 102/76 97 04/05/22 12:30 91 H 14 103/65 99 04/05/22 12:20 99 H 24 102/76 94 04/05/22 12:10 108 H 24 105/71 92 04/05/22 12:00 95 H 105 H 22 105/71 94 04/05/22 11:59 105 H 04/05/22 11:50 91 H 18 99/74 95 04/05/22 11:40 87 15 108/77 96 04/05/22 11:31 102 H 108/77 96 04/05/22 11:30 96 H 20 108/77 96 04/05/22 11:20 104 H 21 112/79 94 04/05/22 11:10 95 H 15 119/84 96 04/05/22 11:00 98.8 F 109 H 24 119/84 96 04/05/22 10:50 107 H 16 112/76 95 04/05/22 10:40 106 H 22 113/81 94 04/05/22 10:30 102 H 17 113/81 96 - Physical Examination General: Other (Intubated on mechanical ventilator) HEENT: Positive: PERRL, Normocephaly, Other (ET-tube in place) Neck: Positive: neck supple, trachea midline (intubated). Negative: JVD/HJR Cardiac: Positive: Regular Rate, S1/S2, PMI, Laterally Displaced. Negative: S3, S4 Lungs: Positive: clear to auscultation, No Wheeze, Rales, Rhonchi Neuro: Positive: Other (As per Neurologist and Hospitalist note) Abdomen: Positive: Soft Extremities: Absent: edema - Labs and Meds CBC 04/06/22 Range/Units 04:00 WBC 7.6 (4.5-11.0) K/mm3 RBC 3.79 (3.65-5.03) M/mm3 Hgb 11.5 L (11.8-15.2) gm/dl Hct 35.1 L (35.5-45.6) % Plt Count 114 L (140-440) K/mm3 Comprehensive Metabolic Panel 04/06/22 Range/Units 04:00 Sodium 140 (137-145) mmol/L Potassium 3.0 L (3.6-5.0) mmol/L Chloride 101.6 (98-107) mmol/L Carbon Dioxide 30 (22-30) mmol/L BUN 11 (9-20) mg/dL Creatinine < 0.2 L (0.8-1.3) mg/dL Glucose 130 H (75-100) mg/dL Calcium 8.1 L (8.4-10.2) mg/dL
[2022-04-06] MEDS: SENNOSIDES ORAL LIQD 8.8 MG/5 ML ORAL LIQD PO SCH ×2 (10:59→22:37)
[2022-04-06] MEDS: FAMOTIDINE 20 MG TAB FEEDTUBE SCH ×2 (10:59→22:37)
[2022-04-06] MEDS: DOCUSATE SODIUM 100 MG/10 ML ORAL LIQD PO SCH ×2 (10:59→22:36)
[2022-04-06] MEDS: POTASSIUM CHLORIDE 20 MEQ PACKET FEEDTUBE SCH ×2 (10:59→14:45)
[2022-04-06] MEDS: ACETYLCYSTEINE 20% 200 MG/1 ML *FOR INHALATION USE INHALATION SCH ×2 (14:54→15:27)
[2022-04-06] MEDS: ALBUTEROL 2.5 MG/3 ML NEBU IH SCH (15:27)
--- NOTE | 2022-04-06 15:33 | Progress Note ---
<MARIOJUAN MarkJose Manuel - Last Filed: 04/06/22 16:48> 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, recently hospitalized at [facility] admitted for acute hypoxemic respiratory failure 2/2 pneumonia Neuro: h/o ALS -Sedated with precedex and fentanyl gtt -RASS goal 0 to -1 -Avoid delirium -Reorientation as needed -Maintain sleep-wake cycle -aspiration/seizure precautions -As needed analgesia -CT head with no acute intracranial process -Neurology consulted, appreciate recommendations -Per family patient is nonverbal at baseline but responsive Cardiac: Hypotension, elevated troponin, h/o cardiomyopathy -Cardiology consulted, appreciate recommendations -Blood pressure monitoring per protocol -Vasopressor support with Levophed -Echocardiogram shows ejection fraction of 40 to 45%, mild global hypokinesis of left ventricle -Cardiology added ACEi and BB Respiratory: Acute hypoxic respiratory failure -CCM consulted, appreciate recommendations -Intubated on 04/02 with a 7.50 ETT attempt at the lips -A.m. vent settings: Assist-control/ PRVC TV 400, rate 14, Peep 8, FiO2 50% -See RT notes for titration -Chest US with possible thoracentisis pending -CPT and mucomyst -A.m. ABG and CXR noted -VAP bundle -SPO2 monitoring GI: Constipation, Moderate protein calorie malnutrition -24 hours +586 mL -PPI -NTR consulted for tube feedings -BR: Senokot/colace : NAD -Strict intake and output -Renally dose medications -Avoid nephrotoxic medications -Daily weights -trend BMP ID: Sepsis, Acute Bronchopneumonia, HAP (Pseudomonas and Enterobacter tracheal aspirate), blood culture with bacillus species -Infectious disease consulted, appreciate recommendation -Per infectious disease patient was recently admitted to [facility] but discharged home with home hospice and not giving antibiotics -Antibiotic therapy with cefepime -f/u blood culture -Tracheal aspirate with Pseudomonas aeruginosa, Enterobacter aerogenes -CRP 31.6, procalcitonin 0.08 -Monitor WBC and temperature curve Endo: NAD -Avoid hypoglycemia -SSI -Accu-Cheks q 6 Heme: Thrombocytopenia -Heparin subq -Trend CBC -Transfuse hemoglobin less than 7 -Monitor for signs of bleeding -SCDs to BLE while in bed Advance Care Planning - Disease education, care plan, diagnoses, and prognosis were discussed patient's , Carly Lopez, and patient daughter, Kaylee Warren, who translated for #[phone]. They reported that patient was following at [facility] for his ALS and during recent hospitalization at [facility] they were told nothing else can be offered to patient at this time and patient was discharge home with home hospice and PO morphine. First hospice visit was on , 04/01 however, patient became unresponsive 04/02 and they brought in to the hospital. - Goal of care and code status were also addressed at that time. Family wants to wait for a couple days to see how patient respond to current treatment before making a decision. All questions and concerns were addressed at this time. Patient family acknowledged understanding and agreement with care plan. -Patient remains a FULL CODE status. -04/05: Discussion at bedside with interpreting service with Dr. Valdivia and family state they would discuss next steps amongst themselves and let healthcare team know of decisions -04/06: extensive discussion with family ( and son) with Dr. Grayson regarding goals of care The high probability of a clinically significant, sudden or life threatening deterioration of the [multiple] system(s) required my full and direct attention, intervention and personal management. The aggregate critical care time was [90] minutes. This time is in addition to time spent performing reported procedures but includes the following: [x] Data Review and interpretation [x] Patient assessment and monitoring of vital signs [x] Documentation [x] Medication orders and management Disposition Plan: icu Total Time Spent with Patient (Minutes): 90 History Interval history: This is a 57-year-old male with ALS who presented to the emergency department on 04/02 with complaints of altered mental status and respiratory distress he was recently discharged home from [facility] with a diagnosis of pneumonia and elevated troponins. Work-up in the emergency department revealed leukocytosis, elevated troponin and hyponatremia and CXR revealed moderate to large pleural effusion on the right. Patient was having agonal breathing in the emergency department and was intubated. Patient was admitted to the hospitalist service with consults to CCM, cardiology and infectious disease for further work-up. Hospital Course to Date: 04/03: Intubated and Sedated on versed gtt, RASS-5. CT head/brain noted with no acute intracranial abnormality. Plan to initiated precededx gtt and wean off versed for a RASS goal of 0 to -2. CT chect also reviewed, findings are most consistent with acute bronchopneumonia. Continue empiric IV Abx, vent adjustment per CCM. ID consulted. Continue to F/U on cultures. Titrate pressor for MAP above 65. Medical records requested from [facility]. 04/04: Remains stable on the vent, easily arousable on precedex gtt, not following commands. Plan for SAT/SBT today. PRN analgesia for CPOT greater than 3. Fevers improved, cultures and procal pending. Continue current IV abx, ID also consulted. Remains on low dose pressors, titrate pressors for a MAP above 65. 04/05: Long discussion with family with use of translation phone with CCM regarding goals of care. Family to have meeting amongst themselves and informed care team of decisions. Fentanyl drip added for respiratory distress. Remains on Precedex drip. Antibiotics per ID. Given 2L NS bolus with levophed gtt 04/06: Family discussion with Dr. Grayson for goals of care. CXR shows possible mucus plug, continue CPT as FiO2 is being able to be weaned. Potassium repleted. Weaning fentnyl gtt. Hospitalist Physical - Constitutional Vitals: Temp Pulse Resp BP Pulse Ox 99 F 109 H 21 115/86 98 04/06/22 12:00 04/06/22 13:11 04/06/22 13:11 04/06/22 13:11 04/06/22 13:11 General appearance: Present: no acute distress, cachectic, other (Intubated, easily arousable on precedex gtt) - EENT Eyes: Present: PERRL, EOM intact ENT: poor dentition - Neck Neck: Present: normal ROM - Respiratory Respiratory effort: normal Respiratory: bilateral: diminished, rhonchi - Cardiovascular Rhythm: regular Heart Sounds: Absent: systolic murmur, diastolic murmur - Extremities Extremities: no ischemia, pulses intact, pulses symmetrical, No edema, normal temperature, normal color Peripheral Pulses: within normal limits - Abdominal General gastrointestinal: soft, non-tender, non-distended, normal bowel sounds - Psychiatric Psychiatric: cooperative - Neurologic Neurologic: other (moves BUE, PERRL, Follow commands with UE) - Allied Health Allied health notes reviewed: nursing, RT, social work HEART Score - HEART Score Troponin: Troponin T 0.048 ng/mL (0.00-0.029) H 04/02/22 19:39 Results - Labs CBC & Chem 7: 04/06/22 04:00 04/06/22 04:00 Labs: Laboratory Last Values WBC 7.6 K/mm3 (4.5-11.0) 04/06/22 04:00 RBC 3.79 M/mm3 (3.65-5.03) 04/06/22 04:00 Hgb 11.5 gm/dl (11.8-15.2) L 04/06/22 04:00 Hct 35.1 % (35.5-45.6) L 04/06/22 04:00 MCV 93 fl (84-94) 04/06/22 04:00 MCH 30 pg (28-32) 04/06/22 04:00 MCHC 33 % (32-34) 04/06/22 04:00 RDW 14.0 % (13.2-15.2) 04/06/22 04:00 Plt Count 114 K/mm3 (140-440) L 04/06/22 04:00 Add Manual Diff Complete 04/02/22 19:39 Total Counted 100 04/02/22 19:39 Seg Neutrophils % Aadc Plans Staff Officer 04/02/22 19:39 Seg Neuts % (Manual) 94.0 % (40.0-70.0) H 04/02/22 19:39 Band Neutrophils % 0 % 04/02/22 19:39 Lymphocytes % (Manual) 1.0 % (13.4-35.0) L 04/02/22 19:39 Reactive Lymphs % (Man) 0 % 04/02/22 19:39 Monocytes % (Manual) 5.0 % (0.0-7.3) 04/02/22 19:39 Eosinophils % (Manual) 0 % (0.0-4.3) 04/02/22 19:39 Basophils % (Manual) 0 % (0.0-1.8) 04/02/22 19:39 Metamyelocytes % 0 % 04/02/22 19:39 Myelocytes % 0 % 04/02/22 19:39 Promyelocytes % 0 % 04/02/22 19:39 Blast Cells % 0 % 04/02/22 19:39 Nucleated RBC % Not Reportable 04/02/22 19:39 Seg Neutrophils # Man 13.4 K/mm3 (1.8-7.7) H 04/02/22 19:39 Band Neutrophils # 0.0 K/mm3 04/02/22 19:39 Lymphocytes # (Manual) 0.1 K/mm3 (1.2-5.4) L 04/02/22 19:39 Abs React Lymphs (Man) 0.0 K/mm3 04/02/22 19:39 Monocytes # (Manual) 0.7 K/mm3 (0.0-0.8) 04/02/22 19:39 Eosinophils # (Manual) 0.0 K/mm3 (0.0-0.4) 04/02/22 19:39 Basophils # (Manual) 0.0 K/mm3 (0.0-0.1) 04/02/22 19:39 Metamyelocytes # 0.0 K/mm3 04/02/22 19:39 Myelocytes # 0.0 K/mm3 04/02/22 19:39 Promyelocytes # 0.0 K/mm3 04/02/22 19:39 Blast Cells # 0.0 K/mm3 04/02/22 19:39 WBC Morphology Not Reportable 04/02/22 19:39 Hypersegmented Neuts Not Reportable 04/02/22 19:39 Hyposegmented Neuts Not Reportable 04/02/22 19:39 Hypogranular Neuts Not Reportable 04/02/22 19:39 Smudge Cells Not Reportable 04/02/22 19:39 Toxic Granulation Not Reportable 04/02/22 19:39 Toxic Vacuolation Not Reportable 04/02/22 19:39 Dohle Bodies Not Reportable 04/02/22 19:39 Pelger-Huet Anomaly Not Reportable 04/02/22 19:39 Terry Rods Not Reportable 04/02/22 19:39 Platelet Estimate Consistent w auto 04/02/22 19:39 Clumped Platelets Not Reportable 04/02/22 19:39 Plt Clumps, EDTA Not Reportable 04/02/22 19:39 Large Platelets Not Reportable 04/02/22 19:39 Giant Platelets Not Reportable 04/02/22 19:39 Platelet Satelliting Not Reportable 04/02/22 19:39 Plt Morphology Comment Not Reportable 04/02/22 19:39 RBC Morphology Not Reportable 04/02/22 19:39 Dimorphic RBCs Not Reportable 04/02/22 19:39 Polychromasia Not Reportable 04/02/22 19:39 Hypochromasia Not Reportable 04/02/22 19:39 Poikilocytosis Not Reportable 04/02/22 19:39 Anisocytosis 1+ 04/02/22 19:39 Microcytosis Not Reportable 04/02/22 19:39 Macrocytosis Not Reportable 04/02/22 19:39 Spherocytes Not Reportable 04/02/22 19:39 Pappenheimer Bodies Not Reportable 04/02/22 19:39 Sickle Cells Not Reportable 04/02/22 19:39 Target Cells Not Reportable 04/02/22 19:39 Tear Drop Cells Not Reportable 04/02/22 19:39 Ovalocytes Not Reportable 04/02/22 19:39 Helmet Cells Not Reportable 04/02/22 19:39 [place] Bodies Not Reportable 04/02/22 19:39 [place] Rings Not Reportable 04/02/22 19:39 Ende[place] Cells Not Reportable 04/02/22 19:39 Bite Cells Not Reportable 04/02/22 19:39 Crenated Cell Not Reportable 04/02/22 19:39 Elliptocytes Not Reportable 04/02/22 19:39 Acanthocytes (Spur) Not Reportable 04/02/22 19:39 Rouleaux Not Reportable 04/02/22 19:39 Hemoglobin C Crystals Not Reportable 04/02/22 19:39 Schistocytes Not Reportable 04/02/22 19:39 Malaria parasites Not Reportable 04/02/22 19:39 [place] Bodies Not Reportable 04/02/22 19:39 Hem Pathologist Commnt No 04/02/22 19:39 PT 15.9 Sec. (12.2-14.9) H 04/02/22 19:39 INR 1.14 (0.87-1.13) H 04/02/22 19:39 APTT 28.6 Sec. (24.2-36.6) 04/02/22 19:39 ABG pH 7.409 pH Units (7.350-7.450) 04/06/22 08:30 ABG pCO2 49.3 mm Hg 04/06/22 08:30 ABG pO2 60.8 mm Hg (80.0-90.0) L 04/06/22 08:30 ABG HCO3 30.5 mmol/L (20.0-26.0) H 04/06/22 08:30 ABG O2 Saturation 93.3 % (95.0-99.0) L 04/06/22 08:30 ABG O2 Content 16.0 (0.0-44) 04/06/22 08:30 ABG Base Excess 4.9 mmol/L (-2.0-3.0) H 04/06/22 08:30 ABG Hemoglobin 12.4 gm/dl (14.0-18.0) L 04/06/22 08:30 ABG Carboxyhemoglobin 0.9 % (0.0-5.0) 04/06/22 08:30 ABG Methemoglobin 0.3 % (0.0-1.5) 04/06/22 08:30 Oxyhemoglobin 92.1 % (95.0-99.0) L 04/06/22 08:30 FiO2 50 % 04/06/22 08:30 Sodium 140 mmol/L (137-145) 04/06/22 04:00 Potassium 3.0 mmol/L (3.6-5.0) L 04/06/22 04:00 Chloride 101.6 mmol/L (98-107) 04/06/22 04:00 Carbon Dioxide 30 mmol/L (22-30) 04/06/22 04:00 Anion Gap 11 mmol/L 04/06/22 04:00 BUN 11 mg/dL (9-20) 04/06/22 04:00 Creatinine < 0.2 mg/dL (0.8-1.3) L 04/06/22 04:00 Estimated GFR > 60 ml/min 04/06/22 04:00 BUN/Creatinine Ratio 55 % 04/06/22 04:00 Glucose 130 mg/dL (75-100) H 04/06/22 04:00 POC Glucose 124 mg/dL (70-105) H 04/05/22 11:28 Lactic Acid 1.90 mmol/L (0.7-2.0) 04/02/22 19:39 Calcium 8.1 mg/dL (8.4-10.2) L 04/06/22 04:00 Phosphorus 3.50 mg/dL (2.5-4.5) D 04/05/22 02:50 Magnesium 2.00 mg/dL (1.7-2.3) 04/05/22 02:50 Total Bilirubin 0.80 mg/dL (0.1-1.2) 04/02/22 19:39 AST 15 units/L (5-40) 04/02/22 19:39 ALT 9 units/L (7-56) 04/02/22 19:39 Alkaline Phosphatase 43 units/L (35-129) 04/02/22 19:39 Troponin T 0.048 ng/mL (0.00-0.029) H 04/02/22 19:39 C-Reactive Protein 31.60 mg/dL (0.00-1.30) H 04/04/22 04:18 Total Protein 4.6 g/dL (6.3-8.2) L 04/02/22 19:39 Albumin 2.7 g/dL (3.9-5) L 04/02/22 19:39 Albumin/Globulin Ratio 1.4 % 04/02/22 19:39 Triglycerides 80 mg/dL (2-149) 04/02/22 19:39 Cholesterol 94 mg/dL (50-199) 04/02/22 19:39 LDL Cholesterol Direct 27 mg/dL (50-130) L 04/02/22 19:39 HDL Cholesterol 47 mg/dL (40-59) 04/02/22 19:39 Cholesterol/HDL Ratio 2.00 % 04/02/22 19:39 Procalcitonin 0.08 ng/mL (<0.15) 04/04/22 04:18 Urine Color [place]ac[place] (Yellow) 04/05/22 17:45 Urine Turbidity Cloudy (Clear) 04/05/22 17:45 Urine pH 5.0 (5.0-7.0) 04/05/22 17:45 Ur Specific [place] 1.021 (1.003-1.030) 04/05/22 17:45 Urine Protein 30 mg/dl mg/dL (Negative) 04/05/22 17:45 Urine Glucose (UA) Neg mg/dL (Negative) 04/05/22 17:45 Urine Ketones Tr mg/dL (Negative) 04/05/22 17:45 Urine Blood Sm (Negative) 04/05/22 17:45 Urine Nitrite Neg (Negative) 04/05/22 17:45 Urine Bilirubin Neg (Negative) 04/05/22 17:45 Urine Urobilinogen < 2.0 mg/dL (<2.0) 04/05/22 17:45 Ur Leukocyte Esterase Tr (Negative) 04/05/22 17:45 Urine WBC (Auto) 8.0 /HPF (0.0-6.0) H 04/05/22 17:45 Urine RBC (Auto) 3.0 /HPF (0.0-6.0) 04/05/22 17:45 U Epithel Cells (Auto) 2.0 /HPF (0-13.0) 04/05/22 17:45 Urine Bacteria (Auto) 1+ /HPF (Negative) 04/02/22 Unknown Hyaline Casts 1 /LPF 04/05/22 17:45 Urine Mucus 3+ /HPF 04/05/22 17:45 Nasal Screen MRSA (PCR) Negative (Negative) 04/05/22 12:37 Vancomycin Trough 6.0 ug/mL (5.0-20.0) 04/05/22 18:53 Microbiology: Microbiology 04/02/22 19:03 Urine,Catheterized - Indwelling Catheter Urine Culture - Final NO GROWTH AFTER 48 HOURS 04/02/22 19:39 Peripheral/Venous Blood Culture - Preliminary NO GROWTH AFTER 72 HOURS 04/05/22 18:53 Peripheral/Venous Blood Culture - Preliminary Culture in Progress 04/05/22 18:53 Peripheral/Venous Blood Culture - Preliminary Culture in Progress 04/02/22 19:39 Peripheral/Venous Blood Culture - Preliminary Bacillus Species 04/02/22 19:16 Tracheal Aspirate Sputum Culture - Final Pseudomonas Aeruginosa Enterobacter Aerogenes Perez/IV: Voiding Method Indwelling Catheter Active Medications - Current Medications Current Medications: Generic Name Dose Route Start Last Admin Trade Name Freq PRN Reason Stop Dose Admin Acetaminophen 650 mg 04/02/22 23:53 04/06/22 04:21 Acetaminophen 325 Mg Tab PO 650 mg Q6H PRN Administration Pain MILD(1-3)/Fever >100.5/FAITH Acetylcysteine 200 mg 04/06/22 11:45 04/06/22 14:54 Acetylcysteine 20% 200 Mg/1 Ml *For Inhalation Use* INHALATION Not Given Q8HRT [facility] Albuterol 2.5 mg 04/06/22 16:00 Albuterol 2.5 Mg/3 Ml Nebu IH Q8HRT [facility] Carvedilol 3.125 mg 04/06/22 22:00 Carvedilol 3.125 Mg Tab PO BID [facility] Docusate Sodium 100 mg 04/03/22 15:00 04/06/22 10:59 Docusate Sodium 100 Mg/10 Ml Oral Liqd PO 100 mg BID SEGUNDO Administration Famotidine 20 mg 04/06/22 10:00 04/06/22 10:59 Famotidine 20 Mg Tab FEEDTUBE 20 mg BID [facility] Administration Fentanyl 50 mcg 04/04/22 15:56 04/06/22 04:10 Fentanyl 100 Mcg/2 Ml Inj IV 50 mcg Q2HR PRN Administration For CPOT of greater than 2 Heparin Sodium (Porcine) 5,000 unit 04/03/22 06:00 04/06/22 06:31 Heparin 5,000 Unit/1 Ml Vial SUB-Q 5,000 unit Q8HR SEGUNDO Administration NORepinephrine/NS 8 MG-250 ML 8 mg in 250 mls @ 3.75 mls/hr 04/02/22 22:00 04/06/22 04:10 Norepinephrine/Ns 8 Mg-250 Ml (Double Conc) IV 0 mcg/min TITRATE SEGUNDO 0 mls/hr Titration Protocol 2 MCG/MIN Dexmedetomidine HCl 400 mcg/ 104 mls @ 2.434 mls/hr 04/03/22 07:00 04/06/22 06:15 Sodium Chloride IV 0.4 mcg/kg/hr TITRATE SEGUNDO 4.867 mls/hr Administration Protocol 0.2 MCG/KG/HR Cefepime HCl 2 gm in 100 mls @ 200 mls/hr 04/03/22 18:00 04/06/22 06:32 Cefepime/Ns 2 Gm/100 Ml IV 200 mls/hr Q12H SEGUNDO Administration Protocol Fentanyl Citrate 2,000 mcg in 100 mls @ 2.34 mls/hr 04/05/22 11:00 04/06/22 04:10 Fentanyl Drip Premix IV 2 mcg/kg/hr TITR SEGUNDO 4.68 mls/hr Titration Protocol 1 MCG/KG/HR Lisinopril 5 mg 04/07/22 10:00 Lisinopril 5 Mg Tab PO QDAY SEGUNDO Magnesium Hydroxide 30 ml 04/02/22 23:53 Magnesium Hydroxide (Mom) Oral Liqd Udc PO Q4H PRN Constipation Ondansetron HCl 4 mg 04/02/22 23:53 Ondansetron 4 Mg/2 Ml Inj IV Q8H PRN Nausea And Vomiting Senna 17.6 mg 04/03/22 22:00 04/06/22 10:59 Sennosides Oral Liqd 8.8 Mg/5 Ml Oral Liqd PO 17.6 mg Q12HR SEGUNDO Administration Sodium Chloride 10 ml 04/03/22 10:00 04/06/22 10:59 Sodium Chloride 0.9% 10 Ml Flush Syringe IV 10 ml BID SEGUNDO Administration Sodium Chloride 10 ml 04/02/22 23:53 Sodium Chloride 0.9% 10 Ml Flush Syringe IV PRN PRN LINE FLUSH Nutrition/Malnutrition Assess - Dietary Evaluation Nutrition/Malnutrition Findings: Nutrition Notes Start: 04/04/22 13:13 Freq: Status: Active Protocol: Document 04/06/22 12:38 COLLEEN (Rec: 04/06/22 13:23 COLLEEN [id number]) Nutrition Notes Initial or Follow up Reassessment Current Diagnosis Sepsis,Respiratory Failure, Malnutrition Other Pertinent Diagnosis HAP, HFpEF, Elevated Troponin, ALS, Hypokalemia, Hypotension , ... Current Diet TF-Vital AF 1.2 Inderjit @ 50 ml/hr (since D 04/06) Labs/Tests 04/06: K 3.0, Crea <0.2, Glu 130, Ca 8.1. Pertinent Medications 04/06: KCl 40mEq, others nutritionally unremarkable. Height 5 ft 4.8 in Weight 46.8 kg [place] Body Weight (kg) 61.27 BMI 17.2 Intake Prior to Admission Poor Weight change and time frame No body weight change reported in 2 days. Weight Status Underweight Subjective/Other Information RD consult for routine F/U on TF tolerance/ continuation, and Low BMI assessment. Pt continues TF as prescribed, well tolerated, according to RN. Pt is on Mechanical ventilation, O2 saturation @ 96%, according to Physical Assessment Histroy notes. Pt presents constipation, according to Physical Assessment Histroy notes. Pt is swallow and Chewing impaired, according to Physical Assessment Histroy notes. Pt is alert and oriented, but continues on Mechanical Ventilation, according to Progress notes. Pt's Low BMI seems to correspond to a natural body composition, and not related to a sudden loss of body weight nor chronic malnutrition, since no signs of concern were mentioned in the Physical Assessment History or the Progress notes. Percent of energy/protein needs met: Prescribed TF-Vital AF 1.2 Inderjit @ 50 ml/hr provides for energy/protein needs (1,450 Kcal/91 g) during LOS, 98% Kcal; 100% AA. Burn Absent Trauma Absent GI Symptoms Constipation Difficulty In Swallowing,Chewing Food Allergy No Skin Integrity/Comment Unspecified Area of Concern. Current % PO Other Minimum of two criteria No #1 Nutrition Diagnosis Swallowing difficulty,Biting/ Chewing (masticatory) difficulty Comments: Change Nutrition Diagnostic for precision. Etiology ALS, Mechanical Ventilation. As Evidenced by Signs and Symptoms Pt currently on TF. Is patient on ventilator? Yes Is Patient Ambulatory and/or Out of Bed No REE-([facility]-confined to bed) [phone] Calculation Used for Recommendations [facility] Additional Notes Protein: 1.2-2 g/Kg IBW; 73- 122 g/day. Fluids: 1 ml/Kcal, or as per MD. Nutrition Intervention Nutrition Support: Continue TF-Vital AF 1.2 Inderjit @ 50 ml/hr. Flush: 80 ml water Q 4 hr, or as per MD. Kcal 1,450 Protein (gm) 91 Carbohydrates (gm) 134 Fat (gm) 65 Fluid (mL) 980 Fiber (gm) 6 % RDI: 98% Kcal; 100% AA. Goal #1 Provide at least 75% of energy /protein needs through Enteral Feeding during LOS. Goal #2 Maintain body weight within +/ -3% of admission body weight during LOS. Follow-Up By: 04/13/22 Additional Comments Continue monitoring TF tolerance and BM. <NORM GRAYSON - Last Filed: 04/08/22 07:50> Assessment and Plan Assessment and plan: I saw and evaluated the patient. Discussed with the nurse practitioner and agree with their findings and plan as documented in this note. Hospitalist Physical - Constitutional Vitals: Temp Pulse Resp BP Pulse Ox 99.1 F 73 14 104/64 100 04/08/22 04:00 04/08/22 06:20 04/08/22 06:20 04/08/22 06:20 04/08/22 06:20 HEART Score - HEART Score Troponin: Troponin T 0.048 ng/mL (0.00-0.029) H 04/02/22 19:39 Results - Labs CBC & Chem 7: 04/08/22 04:49 04/08/22 04:49 Labs: Laboratory Last Values WBC 16.1 K/mm3 (4.5-11.0) H 04/08/22 04:49 RBC 3.54 M/mm3 (3.65-5.03) L 04/08/22 04:49 Hgb 10.9 gm/dl (11.8-15.2) L 04/08/22 04:49 Hct 33.3 % (35.5-45.6) L 04/08/22 04:49 MCV 94 fl (84-94) 04/08/22 04:49 MCH 31 pg (28-32) 04/08/22 04:49 MCHC 33 % (32-34) 04/08/22 04:49 RDW 13.7 % (13.2-15.2) 04/08/22 04:49 Plt Count 162 K/mm3 (140-440) 04/08/22 04:49 Lymph % (Auto) 4.3 % (13.4-35.0) L 04/07/22 03:51 [place] % (Auto) 8.8 % (0.0-7.3) H 04/07/22 03:51 Eos % (Auto) 0.1 % (0.0-4.3) 04/07/22 03:51 Baso % (Auto) 0.2 % (0.0-1.8) 04/07/22 03:51 Lymph # (Auto) 0.6 K/mm3 (1.2-5.4) L 04/07/22 03:51 [place] # (Auto) 1.3 K/mm3 (0.0-0.8) H 04/07/22 03:51 Eos # (Auto) 0.0 K/mm3 (0.0-0.4) 04/07/22 03:51 Baso # (Auto) 0.0 K/mm3 (0.0-0.1) 04/07/22 03:51 Add Manual Diff Complete 04/02/22 19:39 Total Counted 100 04/02/22 19:39 Seg Neutrophils % 86.6 % (40.0-70.0) H 04/07/22 03:51 Seg Neuts % (Manual) 94.0 % (40.0-70.0) H 04/02/22 19:39 Band Neutrophils % 0 % 04/02/22 19:39 Lymphocytes % (Manual) 1.0 % (13.4-35.0) L 04/02/22 19:39 Reactive Lymphs % (Man) 0 % 04/02/22 19:39 Monocytes % (Manual) 5.0 % (0.0-7.3) 04/02/22 19:39 Eosinophils % (Manual) 0 % (0.0-4.3) 04/02/22 19:39 Basophils % (Manual) 0 % (0.0-1.8) 04/02/22 19:39 Metamyelocytes % 0 % 04/02/22 19:39 Myelocytes % 0 % 04/02/22 19:39 Promyelocytes % 0 % 04/02/22 19:39 Blast Cells % 0 % 04/02/22 19:39 Nucleated RBC % Not Reportable 04/02/22 19:39 Seg Neutrophils # 12.7 K/mm3 (1.8-7.7) H 04/07/22 03:51 Seg Neutrophils # Man 13.4 K/mm3 (1.8-7.7) H 04/02/22 19:39 Band Neutrophils # 0.0 K/mm3 04/02/22 19:39 Lymphocytes # (Manual) 0.1 K/mm3 (1.2-5.4) L 04/02/22 19:39 Abs React Lymphs (Man) 0.0 K/mm3 04/02/22 19:39 Monocytes # (Manual) 0.7 K/mm3 (0.0-0.8) 04/02/22 19:39 Eosinophils # (Manual) 0.0 K/mm3 (0.0-0.4) 04/02/22 19:39 Basophils # (Manual) 0.0 K/mm3 (0.0-0.1) 04/02/22 19:39 Metamyelocytes # 0.0 K/mm3 04/02/22 19:39 Myelocytes # 0.0 K/mm3 04/02/22 19:39 Promyelocytes # 0.0 K/mm3 04/02/22 19:39 Blast Cells # 0.0 K/mm3 04/02/22 19:39 WBC Morphology Not Reportable 04/02/22 19:39 Hypersegmented Neuts Not Reportable 04/02/22 19:39 Hyposegmented Neuts Not Reportable 04/02/22 19:39 Hypogranular Neuts Not Reportable 04/02/22 19:39 Smudge Cells Not Reportable 04/02/22 19:39 Toxic Granulation Not Reportable 04/02/22 19:39 Toxic Vacuolation Not Reportable 04/02/22 19:39 Dohle Bodies Not Reportable 04/02/22 19:39 Pelger-Huet Anomaly Not Reportable 04/02/22 19:39 Terry Rods Not Reportable 04/02/22 19:39 Platelet Estimate Consistent w auto 04/02/22 19:39 Clumped Platelets Not Reportable 04/02/22 19:39 Plt Clumps, EDTA Not Reportable 04/02/22 19:39 Large Platelets Not Reportable 04/02/22 19:39 Giant Platelets Not Reportable 04/02/22 19:39 Platelet Satelliting Not Reportable 04/02/22 19:39 Plt Morphology Comment Not Reportable 04/02/22 19:39 RBC Morphology Not Reportable 04/02/22 19:39 Dimorphic RBCs Not Reportable 04/02/22 19:39 Polychromasia Not Reportable 04/02/22 19:39 Hypochromasia Not Reportable 04/02/22 19:39 Poikilocytosis Not Reportable 04/02/22 19:39 Anisocytosis 1+ 04/02/22 19:39 Microcytosis Not Reportable 04/02/22 19:39 Macrocytosis Not Reportable 04/02/22 19:39 Spherocytes Not Reportable 04/02/22 19:39 Pappenheimer Bodies Not Reportable 04/02/22 19:39 Sickle Cells Not Reportable 04/02/22 19:39 Target Cells Not Reportable 04/02/22 19:39 Tear Drop Cells Not Reportable 04/02/22 19:39 Ovalocytes Not Reportable 04/02/22 19:39 Helmet Cells Not Reportable 04/02/22 19:39 [place] Bodies Not Reportable 04/02/22 19:39 [place] Rings Not Reportable 04/02/22 19:39 [place] Cells Not Reportable 04/02/22 19:39 Bite Cells Not Reportable 04/02/22 19:39 Crenated Cell Not Reportable 04/02/22 19:39 Elliptocytes Not Reportable 04/02/22 19:39 Acanthocytes (Spur) Not Reportable 04/02/22 19:39 Rouleaux Not Reportable 04/02/22 19:39 Hemoglobin C Crystals Not Reportable 04/02/22 19:39 Schistocytes Not Reportable 04/02/22 19:39 Malaria parasites Not Reportable 04/02/22 19:39 [place] Bodies Not Reportable 04/02/22 19:39 Hem Pathologist Commnt No 04/02/22 19:39 PT 15.2 Sec. (12.2-14.9) H 04/07/22 03:51 INR 1.08 (0.87-1.13) 04/07/22 03:51 APTT 35.7 Sec. (24.2-36.6) 04/07/22 03:51 ABG pH 7.413 pH Units (7.350-7.450) 04/07/22 04:25 ABG pCO2 50.5 mm Hg 04/07/22 04:25 ABG pO2 71.0 mm Hg (80.0-90.0) L 04/07/22 04:25 ABG HCO3 31.5 mmol/L (20.0-26.0) H 04/07/22 04:25 ABG O2 Saturation 97.2 % (95.0-99.0) 04/07/22 04:25 ABG O2 Content 15.3 (0.0-44) 04/07/22 04:25 ABG Base Excess 5.9 mmol/L (-2.0-3.0) H 04/07/22 04:25 ABG Hemoglobin 11.3 gm/dl (14.0-18.0) L 04/07/22 04:25 ABG Carboxyhemoglobin 1.0 % (0.0-5.0) 04/07/22 04:25 ABG Methemoglobin 0.3 % (0.0-1.5) 04/07/22 04:25 Oxyhemoglobin 95.8 % (95.0-99.0) 04/07/22 04:25 FiO2 35 % 04/07/22 04:25 Sodium 136 mmol/L (137-145) L 04/08/22 04:49 Potassium 4.3 mmol/L (3.6-5.0) 04/08/22 04:49 Chloride 97.7 mmol/L (98-107) L 04/08/22 04:49 Carbon Dioxide 33 mmol/L (22-30) H 04/08/22 04:49 Anion Gap 10 mmol/L 04/08/22 04:49 BUN 9 mg/dL (9-20) 04/08/22 04:49 Creatinine 0.2 mg/dL (0.8-1.3) L 04/08/22 04:49 Estimated GFR > 60 ml/min 04/08/22 04:49 BUN/Creatinine Ratio 45 % 04/08/22 04:49 Glucose 155 mg/dL (75-100) H 04/08/22 04:49 POC Glucose 96 mg/dL (70-105) 04/07/22 16:12 Lactic Acid 1.90 mmol/L (0.7-2.0) 04/02/22 19:39 Calcium 8.4 mg/dL (8.4-10.2) 04/08/22 04:49 Phosphorus 3.50 mg/dL (2.5-4.5) D 04/05/22 02:50 Magnesium 2.00 mg/dL (1.7-2.3) 04/05/22 02:50 Total Bilirubin 0.80 mg/dL (0.1-1.2) 04/02/22 19:39 AST 15 units/L (5-40) 04/02/22 19:39 ALT 9 units/L (7-56) 04/02/22 19:39 Alkaline Phosphatase 43 units/L (35-129) 04/02/22 19:39 Troponin T 0.048 ng/mL (0.00-0.029) H 04/02/22 19:39 C-Reactive Protein 31.60 mg/dL (0.00-1.30) H 04/04/22 04:18 Total Protein 4.6 g/dL (6.3-8.2) L 04/02/22 19:39 Albumin 2.7 g/dL (3.9-5) L 04/02/22 19:39 Albumin/Globulin Ratio 1.4 % 04/02/22 19:39 Triglycerides 80 mg/dL (2-149) 04/02/22 19:39 Cholesterol 94 mg/dL (50-199) 04/02/22 19:39 LDL Cholesterol Direct 27 mg/dL (50-130) L 04/02/22 19:39 HDL Cholesterol 47 mg/dL (40-59) 04/02/22 19:39 Cholesterol/HDL Ratio 2.00 % 04/02/22 19:39 Procalcitonin 0.08 ng/mL (<0.15) 04/04/22 04:18 Urine Color Arac[place] (Yellow) 04/05/22 17:45 Urine Turbidity Cloudy (Clear) 04/05/22 17:45 Urine pH 5.0 (5.0-7.0) 04/05/22 17:45 Ur Specific [place] 1.021 (1.003-1.030) 04/05/22 17:45 Urine Protein 30 mg/dl mg/dL (Negative) 04/05/22 17:45 Urine Glucose (UA) Neg mg/dL (Negative) 04/05/22 17:45 Urine Ketones Tr mg/dL (Negative) 04/05/22 17:45 Urine Blood Sm (Negative) 04/05/22 17:45 Urine Nitrite Neg (Negative) 04/05/22 17:45 Urine Bilirubin Neg (Negative) 04/05/22 17:45 Urine Urobilinogen < 2.0 mg/dL (<2.0) 04/05/22 17:45 Ur Leukocyte Esterase Tr (Negative) 04/05/22 17:45 Urine WBC (Auto) 8.0 /HPF (0.0-6.0) H 04/05/22 17:45 Urine RBC (Auto) 3.0 /HPF (0.0-6.0) 04/05/22 17:45 U Epithel Cells (Auto) 2.0 /HPF (0-13.0) 04/05/22 17:45 Urine Bacteria (Auto) 1+ /HPF (Negative) 04/02/22 Unknown Hyaline Casts 1 /LPF 04/05/22 17:45 Urine Mucus 3+ /HPF 04/05/22 17:45 Nasal Screen MRSA (PCR) Negative (Negative) 04/05/22 12:37 Vancomycin Trough 6.0 ug/mL (5.0-20.0) 04/05/22 18:53 Microbiology: Microbiology 04/02/22 19:39 Peripheral/Venous Blood Culture - Final NO GROWTH AFTER 5 DAYS 04/05/22 18:53 Peripheral/Venous Blood Culture - Preliminary NO GROWTH AFTER 48 HOURS 04/05/22 18:53 Peripheral/Venous Blood Culture - Preliminary NO GROWTH AFTER 48 HOURS Perez/IV: Voiding Method Indwelling Catheter Active Medications - Current Medications Current Medications: Generic Name Dose Route Start Last Admin Trade Name Freq PRN Reason Stop Dose Admin Acetaminophen 650 mg 04/02/22 23:53 04/06/22 20:00 Acetaminophen 325 Mg Tab PO 650 mg Q6H PRN Administration Pain MILD(1-3)/Fever >100.5/FAITH Acetylcysteine 200 mg 04/06/22 11:45 04/07/22 23:29 Acetylcysteine 20% 200 Mg/1 Ml *For Inhalation Use* INHALATION 04/09/22 00:01 200 mg Q8HRT SEGUNDO Administration Albuterol 2.5 mg 04/06/22 16:00 04/07/22 23:29 Albuterol 2.5 Mg/3 Ml Nebu IH 2.5 mg Q8HRT SEGUNDO Administration Bisacodyl 10 mg 04/07/22 09:44 Bisacodyl [address] QDAY PRN Constipation Carvedilol 3.125 mg 04/06/22 22:00 04/07/22 22:56 Carvedilol 3.125 Mg Tab PO Not Given BID SEGUNDO Dextrose 50 ml 04/06/22 17:54 Dextrose 50% In Water (25gm) 50 Ml Syringe IV Q30MIN PRN Hypoglycemia Protocol Docusate Sodium 100 mg 04/03/22 15:00 04/07/22 22:56 Docusate Sodium 100 Mg/10 Ml Oral Liqd PO 100 mg BID SEGUNDO Administration Famotidine 20 mg 04/06/22 10:00 04/07/22 22:56 Famotidine 20 Mg Tab FEEDTUBE 20 mg BID SEGUNDO Administration Fentanyl 50 mcg 04/04/22 15:56 04/07/22 20:59 Fentanyl 100 Mcg/2 Ml Inj IV 50 mcg Q2HR PRN Administration For CPOT of greater than 2 Heparin Sodium (Porcine) 5,000 unit 04/03/22 06:00 04/08/22 06:30 Heparin 5,000 Unit/1 Ml Vial SUB-Q 5,000 unit Q8HR SEGUNDO Administration NORepinephrine/NS 8 MG-250 ML 8 mg in 250 mls @ 3.75 mls/hr 04/02/22 22:00 04/08/22 04:58 Norepinephrine/Ns 8 Mg-250 Ml (Double Conc) IV 12 mcg/min TITRATE SEGUNDO 22.5 mls/hr Administration Protocol 2 MCG/MIN Dexmedetomidine HCl 400 mcg/ 104 mls @ 2.434 mls/hr 04/03/22 07:00 04/08/22 07:29 Sodium Chloride IV 1 mcg/kg/hr TITRATE SEGUNDO 12.168 mls/hr Titration Protocol 0.2 MCG/KG/HR Cefepime HCl 2 gm in 100 mls @ 200 mls/hr 04/03/22 18:00 04/08/22 06:30 Cefepime/Ns 2 Gm/100 Ml IV 200 mls/hr Q12H SEGUNDO Administration Protocol Fentanyl Citrate 2,000 mcg in 100 mls @ 2.34 mls/hr 04/05/22 11:00 04/08/22 05:12 Fentanyl Drip Premix IV 4 mcg/kg/hr TITR SEGUNDO 9.36 mls/hr Administration Protocol 1 MCG/KG/HR Insulin Human Regular 0 units 04/06/22 18:00 04/08/22 06:33 Insulin Regular, Human 100 Units/1 Ml SUB-Q Not Given Q6H [facility] Protocol Lisinopril 5 mg 04/07/22 10:00 04/07/22 09:04 Lisinopril 5 Mg Tab PO Not Given QDAY [facility] Magnesium Hydroxide 30 ml 04/02/22 23:53 Magnesium Hydroxide (Mom) Oral Liqd Udc PO Q4H PRN Constipation Ondansetron HCl 4 mg 04/02/22 23:53 Ondansetron 4 Mg/2 Ml Inj IV Q8H PRN Nausea And Vomiting Polyethylene Glycol 17 gm 04/08/22 10:00 Polyethylene Glycol 3350 17 Gm Powder PO QDAY [facility] Senna 17.6 mg 04/03/22 22:00 04/07/22 22:56 Sennosides Oral Liqd 8.8 Mg/5 Ml Oral Liqd PO 17.6 mg Q12HR SEGUNDO Administration Sodium Chloride 10 ml 04/03/22 10:00 04/07/22 22:56 Sodium Chloride 0.9% 10 Ml Flush Syringe IV 10 ml BID SEGUNDO Administration Sodium Chloride 10 ml 04/02/22 23:53 Sodium Chloride 0.9% 10 Ml Flush Syringe IV PRN PRN LINE FLUSH Nutrition/Malnutrition Assess - Dietary Evaluation Nutrition/Malnutrition Findings: Nutrition Notes Start: 04/04/22 13:13 Freq: Status: Active Protocol: Document 04/06/22 12:38 COLLEEN (Rec: 04/06/22 13:23 COLLEEN [id number]) Nutrition Notes Initial or Follow up Reassessment Current Diagnosis Sepsis,Respiratory Failure, Malnutrition Other Pertinent Diagnosis HAP, HFpEF, Elevated Troponin, ALS, Hypokalemia, Hypotension , ... Current Diet TF-Vital AF 1.2 Inderjit @ 50 ml/hr (since D 04/06) Labs/Tests 04/06: K 3.0, Crea <0.2, Glu 130, Ca 8.1. Pertinent Medications 04/06: KCl 40mEq, others nutritionally unremarkable. Height 5 ft 4.8 in Weight 46.8 kg [place] Body Weight (kg) 61.27 BMI 17.2 Intake Prior to Admission Poor Weight change and time frame No body weight change reported in 2 days. Weight Status Underweight Subjective/Other Information RD consult for routine F/U on TF tolerance/ continuation, and Low BMI assessment. Pt continues TF as prescribed, well tolerated, according to RN. Pt is on Mechanical ventilation, O2 saturation @ 96%, according to Physical Assessment Histroy notes. Pt presents constipation, according to Physical Assessment Histroy notes. Pt is swallow and Chewing impaired, according to Physical Assessment Histroy notes. Pt is alert and oriented, but continues on Mechanical Ventilation, according to Progress notes. Pt's Low BMI seems to correspond to a natural body composition, and not related to a sudden loss of body weight nor chronic malnutrition, since no signs of concern were mentioned in the Physical Assessment History or the Progress notes. Percent of energy/protein needs met: Prescribed TF-Vital AF 1.2 Inderjit @ 50 ml/hr provides for energy/protein needs (1,450 Kcal/91 g) during LOS, 98% Kcal; 100% AA. Burn Absent Trauma Absent GI Symptoms Constipation Difficulty In Swallowing,Chewing Food Allergy No Skin Integrity/Comment Unspecified Area of Concern. Current % PO Other Minimum of two criteria No #1 Nutrition Diagnosis Swallowing difficulty,Biting/ Chewing (masticatory) difficulty Comments: Change Nutrition Diagnostic for precision. Etiology ALS, Mechanical Ventilation. As Evidenced by Signs and Symptoms Pt currently on TF. Is patient on ventilator? Yes Is Patient Ambulatory and/or Out of Bed No REE-([facility]-confined to bed) [phone] Calculation Used for Recommendations [facility] Additional Notes Protein: 1.2-2 g/Kg IBW; 73- 122 g/day. Fluids: 1 ml/Kcal, or as per MD. Nutrition Intervention Nutrition Support: Continue TF-Vital AF 1.2 Inderjit @ 50 ml/hr. Flush: 80 ml water Q 4 hr, or as per MD. Kcal 1,450 Protein (gm) 91 Carbohydrates (gm) 134 Fat (gm) 65 Fluid (mL) 980 Fiber (gm) 6 % RDI: 98% Kcal; 100% AA. Goal #1 Provide at least 75% of energy /protein needs through Enteral Feeding during LOS. Goal #2 Maintain body weight within +/ -3% of admission body weight during LOS. Follow-Up By: 04/13/22 Additional Comments Continue monitoring TF tolerance and BM.
--- NOTE | 2022-04-06 16:18 | Progress Note ---
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 If medical management of atelectasis does not improve the aeration of the right lung, he will need therapeutic bronchoscopy. Ultrasound guided right thoracentesis to help optimize resp muscle function Remains off vasopressor support, can discontinue right IJ CVL and place midline for infusions Keep PEEP at 8 to optimize alveolar recruitment in the setting of atelectasis while monitoring airway pressures Volume restrictive strategies, now that he is out of a shock state. On going family discussions re goals of care -Titrate supplemental oxygen to keep SpO2 89-92% -VAP bundle addressed, aspiration precautions HOB >40 -Lung protective strategies, -CXR, ABG as clinically indicated -Daily assessment for readiness to wean. Daily SBT -Fentanyl infusion for pain management. Titrate to CPOT 0-2 On Precedex for agitation management -Monitoring renal function, hemodynamics and electrolyte profile -Replete electrolytes as clinically indicated -Empiric antibiotics therapy for HAP, ID following -Accuchecks with glycemic control. target blood glucose 140-180 mg/dL. Avoid hypoglycemia -Confirm OGT position and initiate enteric nutritional support -VTE prophylaxis- Heparin -Avoid nephrotoxins and renally dose all medications -Stress ulcer prophylaxis- start famotidine -Mobility, frequent turning, off loading per facility protocol to prevent pressure ulcers -Maintain sleep wake cycle, avoid benzodiazepines. -Limit delirium CONDITION:CRITICAL PROGNOSIS: GUARDED CODE STATUS; FULL CODE The high probability of a clinically significant, sudden or life threatening deterioration of the respiratory, cardiovascular, neurology system required my full and direct attention, intervention and personal management. The aggregate critical care time was [35] minutes. This time is in addition to time spent performing reported procedures but includes the following: [x] Data Review and interpretation [x] Patient assessment and monitoring of vital signs [x] Documentation [x] Medication orders and management Subjective Date of service: 04/06/22 Interval history: Follow up for : Acute and chronic Respiratory Failure with Hypoxia and Hypercapnia 2/2 ALS;Protein calorie malnutrition;Acute Bronchopneumonia; HCAP; Hypotension; NSTEMI; Hypernatremia; Acute Metabolic Encephalopathy; H/o Amyotrophic Lateral Sclerosis Patient seen and examined. Vitals, labs, medications, chart and imaging reviewed. Discussed with respiratory and nursing care staff. No adverse overnight events. More awake and alert, tracks voice. No reported fevers, blood pressure acceptable range. Objective Vital Signs - 12hr 04/06/22 04/06/22 04/06/22 04:21 04:30 04:41 Temperature Pulse Rate 92 H 87 104 H Pulse Rate [ From Monitor] Respiratory 14 14 20 Rate Blood Pressure 99/68 100/67 100/67 O2 Sat by Pulse 91 93 94 Oximetry 04/06/22 04/06/22 04/06/22 04:51 05:00 05:11 Temperature Pulse Rate 86 85 84 Pulse Rate [ From Monitor] Respiratory 14 14 14 Rate Blood Pressure 122/77 88/55 88/55 O2 Sat by Pulse 93 93 95 Oximetry 04/06/22 04/06/22 04/06/22 05:21 05:30 05:41 Temperature Pulse Rate 83 82 98 H Pulse Rate [ From Monitor] Respiratory 14 14 16 Rate Blood Pressure 88/55 94/62 94/62 O2 Sat by Pulse 95 98 98 Oximetry 04/06/22 04/06/22 04/06/22 05:51 06:00 06:11 Temperature Pulse Rate 103 H 105 H 100 H Pulse Rate [ From Monitor] Respiratory 15 16 19 Rate Blood Pressure 108/75 114/76 114/76 O2 Sat by Pulse 100 99 97 Oximetry 04/06/22 04/06/22 04/06/22 06:21 06:30 06:41 Temperature Pulse Rate 99 H 105 H 108 H Pulse Rate [ From Monitor] Respiratory 15 18 18 Rate Blood Pressure 110/75 117/78 117/78 O2 Sat by Pulse 98 96 96 Oximetry 04/06/22 04/06/22 04/06/22 06:51 07:00 07:11 Temperature Pulse Rate 98 H 104 H 104 H Pulse Rate [ From Monitor] Respiratory 15 17 17 Rate Blood Pressure 115/75 121/76 121/76 O2 Sat by Pulse 95 94 93 Oximetry 04/06/22 04/06/22 04/06/22 07:21 07:30 07:41 Temperature Pulse Rate 108 H 103 H 91 H Pulse Rate [ From Monitor] Respiratory 17 15 14 Rate Blood Pressure 112/76 116/78 116/78 O2 Sat by Pulse 94 95 96 Oximetry 04/06/22 04/06/22 04/06/22 07:46 07:51 08:00 Temperature 99.5 F Pulse Rate 97 H 114 H 104 H Pulse Rate [ 104 H From Monitor] Respiratory 18 16 Rate Blood Pressure 118/84 118/84 113/75 O2 Sat by Pulse 96 98 96 Oximetry 04/06/22 04/06/22 04/06/22 08:11 08:21 08:30 Temperature Pulse Rate 110 H 106 H 114 H Pulse Rate [ From Monitor] Respiratory 19 16 18 Rate Blood Pressure 113/75 116/78 117/82 O2 Sat by Pulse 96 97 96 Oximetry 04/06/22 04/06/22 04/06/22 08:41 08:51 09:00 Temperature Pulse Rate 115 H 106 H 110 H Pulse Rate [ From Monitor] Respiratory 16 17 17 Rate Blood Pressure 117/82 114/86 126/81 O2 Sat by Pulse 96 95 96 Oximetry 04/06/22 04/06/22 04/06/22 09:11 09:21 09:30 Temperature Pulse Rate 116 H 108 H 112 H Pulse Rate [ From Monitor] Respiratory 22 16 17 Rate Blood Pressure 126/81 121/89 127/84 O2 Sat by Pulse 96 95 94 Oximetry 04/06/22 04/06/22 04/06/22 09:41 09:51 10:00 Temperature Pulse Rate 113 H 112 H 110 H Pulse Rate [ From Monitor] Respiratory 18 20 15 Rate Blood Pressure 127/84 121/94 127/83 O2 Sat by Pulse 96 97 97 Oximetry 04/06/22 04/06/22 04/06/22 10:11 10:21 10:30 Temperature Pulse Rate 115 H 115 H 117 H Pulse Rate [ From Monitor] Respiratory 18 20 20 Rate Blood Pressure 127/83 126/90 130/86 O2 Sat by Pulse 97 98 98 Oximetry 04/06/22 04/06/22 04/06/22 10:41 10:51 11:00 Temperature Pulse Rate 116 H 114 H 109 H Pulse Rate [ From Monitor] Respiratory 21 16 17 Rate Blood Pressure 130/86 129/86 121/83 O2 Sat by Pulse 98 98 99 Oximetry 04/06/22 04/06/22 04/06/22 11:11 11:21 11:22 Temperature Pulse Rate 115 H 115 H 110 H Pulse Rate [ From Monitor] Respiratory 15 18 Rate Blood Pressure 121/83 120/78 120/78 O2 Sat by Pulse 100 99 99 Oximetry 04/06/22 04/06/22 04/06/22 11:30 11:41 11:51 Temperature Pulse Rate 121 H 114 H 115 H Pulse Rate [ From Monitor] Respiratory 21 23 19 Rate Blood Pressure 119/86 119/86 122/81 O2 Sat by Pulse 98 99 98 Oximetry 04/06/22 04/06/22 04/06/22 12:00 12:11 12:21 Temperature 99 F Pulse Rate 106 H 116 H 110 H Pulse Rate [ 106 H From Monitor] Respiratory 15 17 21 Rate Blood Pressure 118/76 118/76 114/73 O2 Sat by Pulse 98 98 98 Oximetry 04/06/22 04/06/22 04/06/22 12:30 12:41 12:51 Temperature Pulse Rate 110 H 111 H 112 H Pulse Rate [ From Monitor] Respiratory 18 15 17 Rate Blood Pressure 113/77 113/77 118/77 O2 Sat by Pulse 99 99 99 Oximetry 04/06/22 04/06/22 04/06/22 13:00 13:11 15:27 Temperature Pulse Rate 116 H 109 H 109 H Pulse Rate [ From Monitor] Respiratory 18 21 Rate Blood Pressure 115/86 115/86 115/80 O2 Sat by Pulse 99 98 100 Oximetry Constitutional: alert, appears uncomfortable, other (orally intubated, on full MVS-riding set vent rate) Eyes: non-icteric ENT: oropharynx moist Neck: supple, no lymphadenopathy, no JVD, other (RIJ CVL) Effort: mildly labored Ascultation: Bilateral: diminished breath sounds (right lung), rhonchi Cardiovascular: regular rate and rhythm, other (S1,S2) Gastrointestinal: normoactive bowel sounds, soft, non-tender Extremities: no cyanosis, no edema, pink and warm, pulses normal Neurologic: pupils equal and round Psychiatric: anxious CBC and BMP: 04/07/22 03:51 04/07/22 03:51 ABG, PT/INR, D-dimer: ABG ABG pH 7.409 pH Units (7.350-7.450) 04/06/22 08:30 ABG pCO2 49.3 mm Hg 04/06/22 08:30 ABG pO2 60.8 mm Hg (80.0-90.0) L 04/06/22 08:30 ABG O2 Saturation 93.3 % (95.0-99.0) L 04/06/22 08:30 PT/INR, D-dimer PT 15.9 Sec. (12.2-14.9) H 04/02/22 19:39 INR 1.14 (0.87-1.13) H 04/02/22 19:39 Abnormal lab findings: Abnormal Labs 04/02/22 04/02/22 04/02/22 19:39 19:39 19:39 WBC 14.3 H RBC Hgb Hct MCV 96 H Plt Count 104 L Seg Neuts % (Manual) 94.0 H Lymphocytes % (Manual) 1.0 L Seg Neutrophils # Man 13.4 H Lymphocytes # (Manual) 0.1 L PT 15.9 H INR 1.14 H ABG pH ABG pO2 ABG HCO3 ABG O2 Saturation ABG Base Excess ABG Hemoglobin Oxyhemoglobin Sodium 151 H Potassium Carbon Dioxide Creatinine 0.5 L Glucose POC Glucose Calcium 8.2 L Phosphorus Magnesium 1.60 L Troponin T 0.048 H C-Reactive Protein Total Protein 4.6 L Albumin 2.7 L LDL Cholesterol Direct 27 L Urine WBC (Auto) 04/02/22 04/03/22 04/03/22 19:42 05:14 06:30 WBC RBC Hgb Hct MCV Plt Count Seg Neuts % (Manual) Lymphocytes % (Manual) Seg Neutrophils # Man Lymphocytes # (Manual) PT INR ABG pH 7.471 H 7.496 H ABG pO2 47.8 L 91.0 H ABG HCO3 30.6 H ABG O2 Saturation 94.4 L ABG Base Excess 6.2 H ABG Hemoglobin 11.0 L 12.8 L Oxyhemoglobin 93.1 L Sodium 149 H Potassium 3.4 L Carbon Dioxide Creatinine 0.4 L Glucose POC Glucose Calcium Phosphorus Magnesium Troponin T C-Reactive Protein Total Protein Albumin LDL Cholesterol Direct Urine WBC (Auto) 04/04/22 04/04/22 04/04/22 04:18 04:18 05:50 WBC 11.8 H RBC Hgb Hct MCV Plt Count 132 L Seg Neuts % (Manual) Lymphocytes % (Manual) Seg Neutrophils # Man Lymphocytes # (Manual) PT INR ABG pH 7.517 H ABG pO2 115.5 H ABG HCO3 29.9 H ABG O2 Saturation ABG Base Excess 6.7 H ABG Hemoglobin 12.3 L Oxyhemoglobin Sodium Potassium 3.5 L Carbon Dioxide 31 H Creatinine 0.3 L Glucose 153 H POC Glucose Calcium Phosphorus 1.40 L Magnesium 1.50 L Troponin T C-Reactive Protein 31.60 H Total Protein Albumin LDL Cholesterol Direct Urine WBC (Auto) 04/05/22 04/05/22 04/05/22 02:50 05:25 11:28 WBC RBC Hgb Hct MCV Plt Count Seg Neuts % (Manual) Lymphocytes % (Manual) Seg Neutrophils # Man Lymphocytes # (Manual) PT INR ABG pH 7.455 H ABG pO2 50.7 L ABG HCO3 30.5 H ABG O2 Saturation 89.4 L ABG Base Excess 5.9 H ABG Hemoglobin 11.8 L Oxyhemoglobin 88.2 L Sodium Potassium Carbon Dioxide 32 H Creatinine 0.2 L Glucose 110 H POC Glucose 124 H Calcium 7.9 L Phosphorus Magnesium Troponin T C-Reactive Protein Total Protein Albumin LDL Cholesterol Direct Urine WBC (Auto) 04/05/22 04/05/22 04/06/22 17:45 Unknown 04:00 WBC RBC 3.55 L Hgb 11.1 L 11.5 L Hct 33.2 L 35.1 L MCV Plt Count 113 L 114 L Seg Neuts % (Manual) Lymphocytes % (Manual) Seg Neutrophils # Man Lymphocytes # (Manual) PT INR ABG pH ABG pO2 ABG HCO3 ABG O2 Saturation ABG Base Excess ABG Hemoglobin Oxyhemoglobin Sodium Potassium Carbon Dioxide Creatinine Glucose POC Glucose Calcium Phosphorus Magnesium Troponin T C-Reactive Protein Total Protein Albumin LDL Cholesterol Direct Urine WBC (Auto) 8.0 H 04/06/22 04/06/22 04:00 08:30 WBC RBC Hgb Hct MCV Plt Count Seg Neuts % (Manual) Lymphocytes % (Manual) Seg Neutrophils # Man Lymphocytes # (Manual) PT INR ABG pH ABG pO2 60.8 L ABG HCO3 30.5 H ABG O2 Saturation 93.3 L ABG Base Excess 4.9 H ABG Hemoglobin 12.4 L Oxyhemoglobin 92.1 L Sodium Potassium 3.0 L Carbon Dioxide Creatinine < 0.2 L Glucose 130 H POC Glucose Calcium 8.1 L Phosphorus Magnesium Troponin T C-Reactive Protein Total Protein Albumin LDL Cholesterol Direct Urine WBC (Auto) Chest x-ray: image reviewed (Right lung atelectasis with pleural effusion) Allied health notes reviewed: RT
--- NOTE | 2022-04-06 17:44 | Progress Note ---
Assessment and Plan Cultures: Blood culture no growth so far Sputum culture negative renal A/P: 57-year-old man past medical history ALS now with: #Acute sepsis: With fevers and leukocytosis. Secondary to pneumonia. #Acute hypoxic respiratory failure: Currently on the vent. #Hospital-acquired pneumonia. Was recently seen at [facility], was initial ly discharged to home hospice, as such was not given antibiotics. #ALS: Was on home hospice. #Bacillus bacteremia: likely contaminant. Recs: -Goals of care, poor prognosis. -Sputum cultures with gram-negative rods; continue cefepime, -Follow-up cultures Thank you for the consult, we will continue to follow. Sameer Ojeda MD [facility] ([facility] O: [phone] F: [phone] Subjective Date of service: 04/06/22 Interval history: Febrile overnight to 101.4, white count 7.6. Imaging personally reviewed: Chest x-ray: Worsening atelectasis of the right lung. Left lung clear. Objective - Exam Narrative Exam: Physical Exam: Constitutional: Intubated, sedated Head, Ears, Nose: Normocephalic, atraumatic. External ears, nose normal Eyes: Conjunctivae/corneas clear. No icterus. No ptosis. Neck: Supple, no meningeal signs Oral: Intubated Cardiovascular: S1, S2 normal. Respiratory: Good air entry, clear to auscultation bilaterally GI: Soft, non-tender; bowel sounds normal. No peritoneal signs. Musculoskeletal: No pedal edema, no cyanosis. Skin: No rash or abscess Hem/Lymphatic: No palpable cervical or supraclavicular nodes. No lymphangitis Psych: Mood ok. Affect normal Neurological: Sedated - Constitutional Vitals: Vital Signs Temp Pulse Resp BP Pulse Ox 99.2 F 118 H 21 117/87 99 04/06/22 16:00 04/06/22 16:30 04/06/22 16:30 04/06/22 16:30 04/06/22 16:30 Temperature -Last 24 Hours Temperature 99.2 F Temperature 99 F Temperature 99.5 F Temperature 101.4 F Temperature 99.0 F Temperature 99.1 F Temperature 99.5 F - Labs CBC & Chem 7: 04/06/22 04:00 04/06/22 04:00 Labs: Abnormal lab results 04/05/22 04/06/22 04/06/22 Range/Units 17:45 04:00 04:00 Hgb 11.5 L (11.8-15.2) gm/dl Hct 35.1 L (35.5-45.6) % Plt Count 114 L (140-440) K/mm3 ABG pO2 (80.0-90.0) mm Hg ABG HCO3 (20.0-26.0) mmol/L ABG O2 Saturation (95.0-99.0) % ABG Base Excess (-2.0-3.0) mmol/L ABG Hemoglobin (14.0-18.0) gm/dl Oxyhemoglobin (95.0-99.0) % Potassium 3.0 L (3.6-5.0) mmol/L Creatinine < 0.2 L (0.8-1.3) mg/dL Glucose 130 H (75-100) mg/dL Calcium 8.1 L (8.4-10.2) mg/dL Urine WBC (Auto) 8.0 H (0.0-6.0) /HPF 04/06/22 Range/Units 08:30 Hgb (11.8-15.2) gm/dl Hct (35.5-45.6) % Plt Count (140-440) K/mm3 ABG pO2 60.8 L (80.0-90.0) mm Hg ABG HCO3 30.5 H (20.0-26.0) mmol/L ABG O2 Saturation 93.3 L (95.0-99.0) % ABG Base Excess 4.9 H (-2.0-3.0) mmol/L ABG Hemoglobin 12.4 L (14.0-18.0) gm/dl Oxyhemoglobin 92.1 L (95.0-99.0) % Potassium (3.6-5.0) mmol/L Creatinine (0.8-1.3) mg/dL Glucose (75-100) mg/dL Calcium (8.4-10.2) mg/dL Urine WBC (Auto) (0.0-6.0) /HPF
[2022-04-06] MEDS ORDERED: DEXTROSE 50% IN WATER (25GM) 50 ML SYRINGE IV PRN (17:54)
[2022-04-06] MEDS: INSULIN REGULAR, HUMAN 100 UNITS/1 ML SUB-Q SCH (19:00)
[2022-04-07] MEDS: carvediloL 3.125 MG TAB PO SCH ×3 (00:18→22:56)
[2022-04-07] MEDS: INSULIN REGULAR, HUMAN 100 UNITS/1 ML SUB-Q SCH ×4 (00:22→17:23)
[2022-04-07] MEDS: ALBUTEROL 2.5 MG/3 ML NEBU IH SCH ×4 (00:42→23:29)
[2022-04-07] MEDS: ACETYLCYSTEINE 20% 200 MG/1 ML *FOR INHALATION USE INHALATION SCH ×4 (00:42→23:29)
--- NOTE | 2022-04-07 02:43 | XRay Report ---
CHEST 1 VIEW INDICATION / CLINICAL INFORMATION: Resp failure, right lung atelectasis. COMPARISON: Chest x-ray 04/06/2022 FINDINGS: SUPPORT DEVICES: Stable, satisfactory device positioning. HEART / MEDIASTINUM: Stable interval appearance of the cardiomediastinal silhouette. LUNGS / PLEURA: Left lung remains clear. The right lung demonstrates significant improvement in aerat ion of the mid and upper right lung with persistent opacities right lower lung. Small dependent right pleural effusion is not excluded. BONES: No significant osseous abnormality. ADDITIONAL FINDINGS: No significant additional findings. IMPRESSION: 1. Stable tubes and lines. 2. Improving aeration of the right lung. 3. Dependent right pleural effusion is not excluded. Signer Name: Trae Mcfarland II, MD Signed: 04/07/2022 2:39 AM Workstation Name: [id number]
[2022-04-07 04:28] LABS: Basophils % (Auto) 0.2 % (0.0-1.8); Eosinophils % (Auto) 0.1 % (0.0-4.3); Hematocrit 33.2 % (35.5-45.6); Hemoglobin 11.1 gm/dl (11.8-15.2); Lymphocytes # (Auto) 0.6 K/mm3 (1.2-5.4); Lymphocytes % (Auto) 4.3 % (13.4-35.0); Mean Corpuscular HGB Conc 34 % (32-34); Mean Corpuscular Volume 93 fl (84-94); Monocytes # (Auto) 1.3 K/mm3 (0.0-0.8); Monocytes % (Auto) 8.8 % (0.0-7.3); Platelet Count 118 K/mm3 (140-440); Red Blood Count 3.57 M/mm3 (3.65-5.03); Red Cell Distribution Width 13.9 % (13.2-15.2)
[2022-04-07 04:38] LABS: INR 1.08 (0.87-1.13)
[2022-04-07 04:39] LABS: Partial Thromboplastin Time 35.7 Sec. (24.2-36.6)
[2022-04-07 04:50] LABS: Blood Urea Nitrogen 12 mg/dL (9-20); Hemolysis Index 3
[2022-04-07 05:04] LABS: ABG Base Excess 5.9 mmol/L (-2.0-3.0); ABG HCO3 31.5 mmol/L (20.0-26.0); ABG Methemoglobin 0.3 % (0.0-1.5); ABG Oxygen Saturation 97.2 % (95.0-99.0); ABG PCO2 50.5 mm Hg; ABG PH 7.413 pH Units (7.350-7.450)
[2022-04-07 05:06] LABS: BUN/Creatinine Ratio 60
[2022-04-07] MEDS: NORepinephrine/NS 8 MG-250 ML 8 MG/250 ML INFUS..BTL IV SCH ×2 (05:15→17:18)
[2022-04-07] MEDS: fentaNYL DRIP Premix 2,000 MCG/100 ML BAG IV SCH ×3 (06:01→20:55)
[2022-04-07] MEDS: HEPARIN 5,000 UNIT/1 ML VIAL SUB-Q SCH ×3 (06:08→22:56)
[2022-04-07] MEDS: CEFEPIME/NS 2 GM/100 ML 2 GM/100 ML BAG IV SCH ×2 (06:13→17:19)
[2022-04-07] MEDS: SENNOSIDES ORAL LIQD 8.8 MG/5 ML ORAL LIQD PO SCH ×2 (09:04→22:56)
[2022-04-07] MEDS: FAMOTIDINE 20 MG TAB FEEDTUBE SCH ×2 (09:04→22:56)
[2022-04-07] MEDS: DOCUSATE SODIUM 100 MG/10 ML ORAL LIQD PO SCH ×2 (09:04→22:56)
[2022-04-07] MEDS: LISINOPRIL 5 MG TAB PO SCH (09:04)
--- NOTE | 2022-04-07 10:42 | Progress Note ---
Assessment and Plan 1. Community-acquired bronchopneumonia 2. Respiratory failure s/p intubation on mechanical ventilator. 3. Equivocal serum troponin elevation rule out ischemic coronary artery disease 4. Cardiomyopathy unspecified left ventricular ejection fraction 40 to 45% 5. ALS Plan. Continue antibiotic treatment for bronchopneumonia as per pulmonary. Wean off IV pressor agents as hemodynamically tolerated. Carvedilol and ADRIA inhibitors on hold as patient is still hemodynamically unstable. Patient is not a candidate for invasive cardiac management we will continue conservative management Subjective Date of service: 04/07/22 Interval history: Patient is alert and responsive to questions he is still remains intubated on mechanical ventilator. Objective Vital Signs Temp Pulse Pulse Pulse Resp Resp BP 04/07/22 10:30 97 H 18 111/72 04/07/22 10:21 94 H 14 113/67 04/07/22 10:11 93 H 17 100/64 04/07/22 10:01 78 16 100/64 04/07/22 09:51 74 14 78/46 04/07/22 09:41 74 14 97/63 04/07/22 09:30 90 17 97/63 04/07/22 09:21 93 H 14 78/41 04/07/22 09:11 87 14 92/60 04/07/22 09:01 95 H 17 92/60 04/07/22 08:51 79 14 90/50 04/07/22 08:41 91 H 19 103/71 04/07/22 08:30 98 H 18 103/71 04/07/22 08:21 91 H 14 101/64 04/07/22 08:11 97 H 16 114/65 04/07/22 08:00 98.1 F 78 78 15 114/65 04/07/22 07:51 116 H 18 109/73 04/07/22 07:46 97 H 93 H 14 109/73 04/07/22 07:41 97 H 14 108/71 04/07/22 07:30 101 H 14 108/71 04/07/22 07:21 102 H 13 115/72 04/07/22 07:11 100 H 18 116/76 04/07/22 07:00 103 H 14 116/76 04/07/22 06:51 104 H 14 111/73 04/07/22 06:41 106 H 14 136/85 04/07/22 06:31 73 22 136/85 04/07/22 06:21 107 H 15 123/81 04/07/22 06:11 103 H 14 115/86 04/07/22 06:00 108 H 14 115/86 04/07/22 05:51 103 H 20 124/89 04/07/22 05:41 99 H 18 124/79 04/07/22 05:31 100 H 22 124/82 04/07/22 05:21 98 H 22 124/82 04/07/22 05:11 95 H 21 136/110 04/07/22 05:01 95 H 22 136/110 04/07/22 04:51 84 15 90/69 04/07/22 04:41 94 H 14 80/48 04/07/22 04:40 98.6 F 04/07/22 04:30 99 H 13 86/66 04/07/22 04:20 83 14 80/48 04/07/22 04:11 78 14 91/65 04/07/22 04:00 86 116 H 14 90/60 04/07/22 03:53 99.6 F 04/07/22 03:51 82 14 99/62 04/07/22 03:41 81 14 91/65 04/07/22 03:30 85 14 91/65 04/07/22 03:21 83 14 92/62 04/07/22 03:11 83 14 90/53 04/07/22 03:00 85 14 90/53 04/07/22 02:51 84 14 119/93 04/07/22 02:41 81 14 96/64 04/07/22 02:30 73 14 96/64 04/07/22 02:21 70 14 99/73 04/07/22 02:11 67 14 98/70 04/07/22 02:00 74 14 73/43 04/07/22 01:51 77 14 67/34 04/07/22 01:41 78 14 59/31 04/07/22 01:30 82 14 59/31 22 01:20 77 14 78/48 04/07/22 01:11 91 H 14 84/57 04/07/22 01:00 100 H 14 84/57 04/07/22 00:51 105 H 14 110/84 04/07/22 00:41 105 H 14 117/82 06/01/22 00:30 114 H 14 117/82 04/07/22 00:21 116 H 15 114/77 04/07/22 00:18 118 H 114/77 04/07/22 00:11 117 H 19 111/78 04/07/22 00:00 98.1 F 113 H 14 L 116 H 14 116 H 111/78 04/06/22 23:57 113 H 15 120/84 04/06/22 23:51 118 H 18 120/84 04/06/22 23:41 118 H 15 113/70 04/06/22 23:30 117 H 17 123/90 04/06/22 23:21 110 H 14 113/70 04/06/22 23:11 106 H 15 109/69 04/06/22 23:00 98 H 14 79/47 04/06/22 22:51 104 H 14 80/46 04/06/22 22:41 103 H 14 96/59 04/06/22 22:30 109 H 14 82/51 04/06/22 22:20 110 H 14 99/66 04/06/22 22:11 109 H 13 99/66 04/06/22 22:00 114 H 15 120/82 04/06/22 21:51 110 H 15 121/81 04/06/22 21:40 119 H 19 99/04/06/22 21:30 112 H 14 99/66 04/06/22 21:21 120 H 18 104/75 04/06/22 21:11 121 H 16 116/74 04/06/22 21:00 124 H 17 116/74 04/06/22 20:51 132 H 23 132/84 04/06/22 20:41 130 H 22 137/87 04/06/22 20:30 126 H 19 137/87 04/06/22 20:21 132 H 19 135/85 04/06/22 20:11 135 H 17 148/88 04/06/22 20:00 132 H 116 H 22 148/88 04/06/22 19:51 131 H 24 151/92 04/06/22 19:41 128 H 18 143/98 04/06/22 19:30 126 H 18 143/98 04/06/22 19:27 101.6 F H 04/06/22 19:21 129 H 27 H 139/89 04/06/22 19:11 120 H 22 142/89 04/06/22 19:01 126 H 17 142/89 04/06/22 18:51 115 H 23 113/73 04/06/22 18:41 105 H 15 04/06/22 18:30 95 H 14 117/72 04/06/22 18:21 121 H 23 117/72 04/06/22 18:11 114 H 23 113/72 04/06/22 18:00 109 H 20 113/72 04/06/22 17:51 114 H 23 115/86 04/06/22 17:41 119 H 19 113/77 04/06/22 17:30 114 H 20 113/77 04/06/22 17:21 102 H 15 113/74 04/06/22 17:11 108 H 18 117/87 04/06/22 17:00 106 H 20 127/87 04/06/22 16:51 99 H 18 127/87 04/06/22 16:41 103 H 19 117/87 04/06/22 16:30 118 H 21 117/87 04/06/22 16:21 117 H 21 114/84 04/06/22 16:11 123 H 21 112/80 04/06/22 16:00 99.2 F 116 H 116 H 16 112/80 04/06/22 15:51 109 H 15 116/85 04/06/22 15:41 114 H 16 108/79 04/06/22 15:30 108 H 15 108/79 04/06/22 15:27 109 H 115/80 04/06/22 15:21 116 H 19 115/80 04/06/22 15:11 112 H 16 112/78 04/06/22 15:00 114 H 16 112/78 04/06/22 14:51 117 H 17 116/85 04/06/22 14:41 116 H 20 123/81 04/06/22 14:30 114 H 17 123/81 04/06/22 14:21 116 H 17 117/77 04/06/22 14:11 113 H 17 123/84 04/06/22 14:00 114 H 18 123/84 04/06/22 13:51 115 H 22 109/80 04/06/22 13:41 115 H 17 114/81 04/06/22 13:30 116 H 17 114/81 04/06/22 13:21 110 H 17 114/77 04/06/22 13:11 109 H 21 115/86 04/06/22 13:00 116 H 18 115/86 04/06/22 12:51 112 H 17 118/77 04/06/22 12:41 111 H 15 113/77 04/06/22 12:30 110 H 18 113/77 04/06/22 12:21 110 H 21 114/73 04/06/22 12:11 116 H 17 118/76 04/06/22 12:00 99 F 106 H 106 H 15 118/76 04/06/22 11:51 115 H 19 122/81 04/06/22 11:41 114 H 23 119/86 04/06/22 11:30 121 H 21 119/86 04/06/22 11:22 110 H 120/78 04/06/22 11:21 115 H 18 120/78 04/06/22 11:11 115 H 15 121/83 04/06/22 11:00 109 H 17 121/83 04/06/22 10:51 114 H 16 129/86 Pulse Ox 04/07/22 10:30 98 04/07/22 10:21 96 04/07/22 10:11 97 04/07/22 10:01 95 04/07/22 09:51 95 04/07/22 09:41 94 04/07/22 09:30 96 04/07/22 09:21 95 04/07/22 09:11 96 04/07/22 09:01 93 04/07/22 08:51 92 04/07/22 08:41 91 04/07/22 08:30 88 04/07/22 08:21 94 04/07/22 08:11 92 04/07/22 08:00 94 04/07/22 07:51 91 04/07/22 07:46 94 04/07/22 07:41 91 04/07/22 07:30 95 04/07/22 07:21 94 04/07/22 07:11 94 04/07/22 07:00 95 04/07/22 06:51 95 04/07/22 06:41 99 04/07/22 06:31 89 04/07/22 06:21 90 04/07/22 06:11 95 04/07/22 06:00 87 04/07/22 05:51 90 04/07/22 05:41 89 04/07/22 05:31 87 04/07/22 05:21 88 04/07/22 05:11 89 04/07/22 05:01 90 04/07/22 04:51 97 04/07/22 04:41 100 04/07/22 04:40 04/07/22 04:30 100 04/07/22 04:20 100 04/07/22 04:11 100 04/07/22 04:00 100 04/07/22 03:53 04/07/22 03:51 100 04/07/22 03:41 100 04/07/22 03:30 100 04/07/22 03:21 100 04/07/22 03:11 100 04/07/22 03:00 100 04/07/22 02:51 100 04/07/22 02:41 100 04/07/22 02:30 100 04/07/22 02:21 100 04/07/22 02:11 100 04/07/22 02:00 100 04/07/22 01:51 100 04/07/22 01:41 99 04/07/22 01:30 97 04/07/22 01:20 100 04/07/22 01:11 100 04/07/22 01:00 100 04/07/22 00:51 98 04/07/22 00:41 95 04/07/22 00:30 95 04/07/22 00:21 93 04/07/22 00:18 04/07/22 00:11 92 04/07/22 00:00 91 04/06/22 23:57 96 04/06/22 23:51 91 04/06/22 23:41 89 04/06/22 23:30 92 04/06/22 23:21 93 04/06/22 23:11 93 04/06/22 23:00 95 04/06/22 22:51 94 04/06/22 22:41 95 04/06/22 22:30 95 04/06/22 22:20 98 04/06/22 22:11 99 04/06/22 22:00 90 04/06/22 21:51 96 04/06/22 21:40 89 04/06/22 21:30 87 04/06/22 21:21 88 04/06/22 21:11 89 04/06/22 21:00 89 04/06/22 20:51 86 04/06/22 20:41 86 04/06/22 20:30 87 04/06/22 20:21 88 04/06/22 20:11 87 04/06/22 20:00 89 04/06/22 19:51 88 04/06/22 19:41 88 04/06/22 19:30 88 04/06/22 19:27 04/06/22 19:21 90 04/06/22 19:11 93 04/06/22 19:01 91 04/06/22 18:51 90 04/06/22 18:41 92 04/06/22 18:30 92 04/06/22 18:21 92 04/06/22 18:11 91 04/06/22 18:00 95 04/06/22 17:51 98 04/06/22 17:41 98 04/06/22 17:30 98 04/06/22 17:21 99 04/06/22 17:11 99 04/06/22 17:00 99 04/06/22 16:51 99 04/06/22 16:41 95 04/06/22 16:30 99 04/06/22 16:21 98 04/06/22 16:11 97 04/06/22 16:00 100 04/06/22 15:51 100 04/06/22 15:41 98 04/06/22 15:30 99 04/06/22 15:27 100 04/06/22 15:21 99 04/06/22 15:11 100 04/06/22 15:00 100 04/06/22 14:51 100 04/06/22 14:41 100 04/06/22 14:30 99 04/06/22 14:21 98 04/06/22 14:11 100 04/06/22 14:00 100 04/06/22 13:51 99 04/06/22 13:41 99 04/06/22 13:30 99 04/06/22 13:21 98 04/06/22 13:11 98 04/06/22 13:00 99 04/06/22 12:51 99 04/06/22 12:41 99 04/06/22 12:30 99 04/06/22 12:21 98 04/06/22 12:11 98 04/06/22 12:00 98 04/06/22 11:51 98 04/06/22 11:41 99 04/06/22 11:30 98 04/06/22 11:22 99 04/06/22 11:21 99 04/06/22 11:11 100 04/06/22 11:00 99 04/06/22 10:51 98 - Physical Examination General: Other (Intubated on mechanical ventilator) HEENT: Positive: PERRL, Normocephaly, Other (ET-tube in place) Neck: Positive: neck supple, trachea midline (intubated). Negative: JVD/HJR Cardiac: Positive: Regular Rate, S1/S2, PMI, Laterally Displaced. Negative: S3 Lungs: Positive: clear to auscultation, No Wheeze, Rales, Rhonchi Neuro: Positive: Other (As per Neurologist and Hospitalist note) Abdomen: Positive: Soft Extremities: Absent: edema - Labs and Meds Coagulation 04/07/22 Range/Units 03:51 PT 15.2 H (12.2-14.9) Sec. INR 1.08 (0.87-1.13) APTT 35.7 (24.2-36.6) Sec. CBC 04/07/22 Range/Units 03:51 WBC 14.6 H (4.5-11.0) K/mm3 RBC 3.57 L (3.65-5.03) M/mm3 Hgb 11.1 L (11.8-15.2) gm/dl Hct 33.2 L (35.5-45.6) % Plt Count 118 L (140-440) K/mm3 Lymph # (Auto) 0.6 L (1.2-5.4) K/mm3 Stokes # (Auto) 1.3 H (0.0-0.8) K/mm3 Eos # (Auto) 0.0 (0.0-0.4) K/mm3 Baso # (Auto) 0.0 (0.0-0.1) K/mm3 Comprehensive Metabolic Panel 04/07/22 Range/Units 03:51 Sodium 133 L (137-145) mmol/L Potassium 4.6 D (3.6-5.0) mmol/L Chloride 96.0 L (98-107) mmol/L Carbon Dioxide 31 H (22-30) mmol/L BUN 12 (9-20) mg/dL Creatinine 0.2 L (0.8-1.3) mg/dL Glucose 130 H (75-100) mg/dL Calcium 8.0 L (8.4-10.2) mg/dL - Allied health notes Allied health notes reviewed: RT
--- NOTE | 2022-04-07 13:58 | Progress Note ---
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 - On going family discussions re goals of care - Daily SAT and SBT assessment as tolerated - continue to wean supplemental oxygen for target O2 sat's > 90% acutely - VAP bundle addressed - continue lung protective strategies - continue bronchodilators with pulmonary hygiene per RT - wean per pulmonary driven protocols otherwise - continue accuchecks with glycemic control per SSI (While critically ill target blood glucose of 140-180 mg/dL; avoid hypoglycemia) - sedation prn for target RASS 0 to -1 - avoid nephrotoxins, renally dose all medications - continue to avoid benzodiazepine's, reduce the possibility of delirium - AB's per ID rec's - prn analgesia per CPOT score - Maintenance of sleep-wake cycle, avoid delirium - continue enteral nutritional support at goal rate as tolerated - G.I. & VTE prophylaxis - PT/OT/ROM exercises - continue mobility protocols for pressure ulcer prophylaxis - Monitor hemodynamics closely - continue other care per attending / other consultants - discharge planning ongoing concurrently COVID SPECIFIC INTERVENTIONS - test pending .... Re-evaluate in am & prn CONDITION: CRITICAL PROGNOSIS: GUARDED CODE STATUS: FULL CODE The high probability of a clinically significant, sudden or life-threatening deterioration of the [respiratory, cardiovascular & neurologic] system(s) required my full and direct attention, intervention and personal management. The aggregate critical care time was [35] minutes without overlap. Time includes spent on; [x] Data Review and interpretation [x] Patient assessment and monitoring of vital signs [x] Documentation [x] Medication orders and management Subjective Date of service: 04/07/22 Principal diagnosis: Ac and ch hypercapnic and hypoxemic Resp Failure; ALS; HCAP; Sepsis; NSTEMI Interval history: Patient is seen today for: Acute and chronic hypercapnic and hypoxemic Respiratory Failure; ALS; HCAP; Sepsis; NSTEMI; AMS; Hypernatremia; Thrombocytopenia; Protein Caloric Malnutrition; Constipation Seen and examined at bedside; 24hour events reviewed; nursing and respiratory care staff consulted; no adverse overnight events reported to me; resting peacefully in bed; remains on MVS; his and family visited earlier; thoracentesis abandoned due top inadequate fluid; sedation had to be increasede earlier though due to ventilator dyssynchrony Objective Vital Signs - 12hr 04/07/22 04/07/22 04/07/22 02:00 02:11 02:21 Temperature Pulse Rate 74 67 70 Pulse Rate [ Anterior Bilateral Throughout] Pulse Rate [ From Monitor] Respiratory 14 14 14 Rate Respiratory Rate [Anterior Bilateral Throughout] Blood Pressure 73/43 98/70 99/73 O2 Sat by Pulse 100 100 100 Oximetry 04/07/22 04/07/22 04/07/22 02:30 02:41 02:51 Temperature Pulse Rate 73 81 84 Pulse Rate [ Anterior Bilateral Throughout] Pulse Rate [ From Monitor] Respiratory 14 14 14 Rate Respiratory Rate [Anterior Bilateral Throughout] Blood Pressure 96/64 96/64 119/93 O2 Sat by Pulse 100 100 100 Oximetry 04/07/22 04/07/22 04/07/22 03:00 03:11 03:21 Temperature Pulse Rate 85 83 83 Pulse Rate [ Anterior Bilateral Throughout] Pulse Rate [ From Monitor] Respiratory 14 14 14 Rate Respiratory Rate [Anterior Bilateral Throughout] Blood Pressure 90/53 90/53 92/62 O2 Sat by Pulse 100 100 100 Oximetry 04/07/22 04/07/22 04/07/22 03:30 03:41 03:51 Temperature Pulse Rate 85 81 82 Pulse Rate [ Anterior Bilateral Throughout] Pulse Rate [ From Monitor] Respiratory 14 14 14 Rate Respiratory Rate [Anterior Bilateral Throughout] Blood Pressure 91/65 91/65 99/62 O2 Sat by Pulse 100 100 100 Oximetry 04/07/22 04/07/22 04/07/22 03:53 04:00 04:11 Temperature 99.6 F Pulse Rate 86 78 Pulse Rate [ Anterior Bilateral Throughout] Pulse Rate [ 116 H From Monitor] Respiratory 14 14 Rate Respiratory Rate [Anterior Bilateral Throughout] Blood Pressure 90/60 91/65 O2 Sat by Pulse 100 100 Oximetry 04/07/22 04/07/22 04/07/22 04:20 04:30 04:40 Temperature 98.6 F Pulse Rate 83 99 H Pulse Rate [ Anterior Bilateral Throughout] Pulse Rate [ From Monitor] Respiratory 14 13 Rate Respiratory Rate [Anterior Bilateral Throughout] Blood Pressure 80/48 86/66 O2 Sat by Pulse 100 100 Oximetry 04/07/22 04/07/22 04/07/22 04:41 04:51 05:01 Temperature Pulse Rate 94 H 84 95 H Pulse Rate [ Anterior Bilateral Throughout] Pulse Rate [ From Monitor] Respiratory 14 15 22 Rate Respiratory Rate [Anterior Bilateral Throughout] Blood Pressure 80/48 90/69 136/110 O2 Sat by Pulse 100 97 90 Oximetry 04/07/22 04/07/22 04/07/22 05:11 05:21 05:31 Temperature Pulse Rate 95 H 98 H 100 H Pulse Rate [ Anterior Bilateral Throughout] Pulse Rate [ From Monitor] Respiratory 21 22 22 Rate Respiratory Rate [Anterior Bilateral Throughout] Blood Pressure 136/110 124/82 124/82 O2 Sat by Pulse 89 88 87 Oximetry 04/07/22 04/07/22 04/07/22 05:41 05:51 06:00 Temperature Pulse Rate 99 H 103 H 108 H Pulse Rate [ Anterior Bilateral Throughout] Pulse Rate [ From Monitor] Respiratory 18 20 14 Rate Respiratory Rate [Anterior Bilateral Throughout] Blood Pressure 124/79 124/89 115/86 O2 Sat by Pulse 89 90 87 Oximetry 04/07/22 04/07/22 04/07/22 06:11 06:21 06:31 Temperature Pulse Rate 103 H 107 H 73 Pulse Rate [ Anterior Bilateral Throughout] Pulse Rate [ From Monitor] Respiratory 14 15 22 Rate Respiratory Rate [Anterior Bilateral Throughout] Blood Pressure 115/86 123/81 136/85 O2 Sat by Pulse 95 90 89 Oximetry 04/07/22 04/07/22 04/07/22 06:41 06:51 07:00 Temperature Pulse Rate 106 H 104 H 103 H Pulse Rate [ Anterior Bilateral Throughout] Pulse Rate [ From Monitor] Respiratory 14 14 14 Rate Respiratory Rate [Anterior Bilateral Throughout] Blood Pressure 136/85 111/73 116/76 O2 Sat by Pulse 99 95 95 Oximetry 04/07/22 04/07/22 04/07/22 07:11 07:21 07:30 Temperature Pulse Rate 100 H 102 H 101 H Pulse Rate [ Anterior Bilateral Throughout] Pulse Rate [ From Monitor] Respiratory 18 13 14 Rate Respiratory Rate [Anterior Bilateral Throughout] Blood Pressure 116/76 115/72 108/71 O2 Sat by Pulse 94 94 95 Oximetry 04/07/22 04/07/22 04/07/22 07:41 07:46 07:51 Temperature Pulse Rate 97 H 97 H 116 H Pulse Rate [ 93 H Anterior Bilateral Throughout] Pulse Rate [ From Monitor] Respiratory 14 18 Rate Respiratory 14 Rate [Anterior Bilateral Throughout] Blood Pressure 108/71 109/73 109/73 O2 Sat by Pulse 91 94 91 Oximetry 04/07/22 04/07/22 04/07/22 08:00 08:11 08:21 Temperature 98.1 F Pulse Rate 78 97 H 91 H Pulse Rate [ Anterior Bilateral Throughout] Pulse Rate [ 78 From Monitor] Respiratory 15 16 14 Rate Respiratory Rate [Anterior Bilateral Throughout] Blood Pressure 114/65 114/65 101/64 O2 Sat by Pulse 94 92 94 Oximetry 04/07/22 04/07/22 04/07/22 08:30 08:41 08:51 Temperature Pulse Rate 98 H 91 H 79 Pulse Rate [ Anterior Bilateral Throughout] Pulse Rate [ From Monitor] Respiratory 18 19 14 Rate Respiratory Rate [Anterior Bilateral Throughout] Blood Pressure 103/71 103/71 90/50 O2 Sat by Pulse 88 91 92 Oximetry 04/07/22 04/07/22 04/07/22 09:01 09:11 09:21 Temperature Pulse Rate 95 H 87 93 H Pulse Rate [ Anterior Bilateral Throughout] Pulse Rate [ From Monitor] Respiratory 17 14 14 Rate Respiratory Rate [Anterior Bilateral Throughout] Blood Pressure 92/60 92/60 78/41 O2 Sat by Pulse 93 96 95 Oximetry 04/07/22 04/07/22 04/07/22 09:30 09:41 09:51 Temperature Pulse Rate 90 74 74 Pulse Rate [ Anterior Bilateral Throughout] Pulse Rate [ From Monitor] Respiratory 17 14 14 Rate Respiratory Rate [Anterior Bilateral Throughout] Blood Pressure 97/63 97/63 78/46 O2 Sat by Pulse 96 94 95 Oximetry 04/07/22 04/07/22 04/07/22 10:01 10:11 10:21 Temperature Pulse Rate 78 93 H 94 H Pulse Rate [ Anterior Bilateral Throughout] Pulse Rate [ From Monitor] Respiratory 16 17 14 Rate Respiratory Rate [Anterior Bilateral Throughout] Blood Pressure 100/64 100/64 113/67 O2 Sat by Pulse 95 97 96 Oximetry 04/07/22 04/07/22 04/07/22 10:30 10:41 10:51 Temperature Pulse Rate 97 H 84 89 Pulse Rate [ Anterior Bilateral Throughout] Pulse Rate [ From Monitor] Respiratory 18 15 18 Rate Respiratory Rate [Anterior Bilateral Throughout] Blood Pressure 111/72 111/72 108/69 O2 Sat by Pulse 98 98 97 Oximetry 04/07/22 04/07/22 04/07/22 11:00 11:09 11:11 Temperature Pulse Rate 75 80 80 Pulse Rate [ Anterior Bilateral Throughout] Pulse Rate [ From Monitor] Respiratory 14 16 Rate Respiratory Rate [Anterior Bilateral Throughout] Blood Pressure 108/60 108/60 108/60 O2 Sat by Pulse 98 97 97 Oximetry 04/07/22 04/07/22 04/07/22 11:21 11:30 11:32 Temperature 98.9 F Pulse Rate 78 75 83 Pulse Rate [ Anterior Bilateral Throughout] Pulse Rate [ 83 From Monitor] Respiratory 15 14 16 Rate Respiratory Rate [Anterior Bilateral Throughout] Blood Pressure 108/60 95/57 O2 Sat by Pulse 99 98 94 Oximetry 04/07/22 04/07/22 04/07/22 11:41 11:51 12:00 Temperature Pulse Rate 80 73 73 Pulse Rate [ Anterior Bilateral Throughout] Pulse Rate [ From Monitor] Respiratory 14 14 14 Rate Respiratory Rate [Anterior Bilateral Throughout] Blood Pressure 95/57 81/46 83/48 O2 Sat by Pulse 97 96 96 Oximetry 04/07/22 04/07/22 04/07/22 12:11 12:21 12:30 Temperature Pulse Rate 72 70 67 Pulse Rate [ Anterior Bilateral Throughout] Pulse Rate [ From Monitor] Respiratory 14 14 14 Rate Respiratory Rate [Anterior Bilateral Throughout] Blood Pressure 83/48 84/54 84/51 O2 Sat by Pulse 97 98 98 Oximetry 04/07/22 04/07/22 04/07/22 12:41 12:51 13:00 Temperature Pulse Rate 68 68 66 Pulse Rate [ Anterior Bilateral Throughout] Pulse Rate [ From Monitor] Respiratory 14 14 14 Rate Respiratory Rate [Anterior Bilateral Throughout] Blood Pressure 84/51 88/56 97/62 O2 Sat by Pulse 99 100 100 Oximetry 04/07/22 04/07/22 04/07/22 13:11 13:21 13:30 Temperature Pulse Rate 65 67 65 Pulse Rate [ Anterior Bilateral Throughout] Pulse Rate [ From Monitor] Respiratory 14 14 14 Rate Respiratory Rate [Anterior Bilateral Throughout] Blood Pressure 97/62 94/62 98/63 O2 Sat by Pulse 100 100 100 Oximetry Constitutional: alert, appears uncomfortable, other (orally intubated, on full MVS-riding set vent rate) Eyes: non-icteric ENT: oropharynx moist, other (ETT 24 cm [place]) Neck: supple, no lymphadenopathy, no JVD, other (RIJ CVL) Effort: mildly labored Ascultation: Bilateral: diminished breath sounds (right lung, base), rhonchi Percussion: Bilateral: not dull Cardiovascular: regular rate and rhythm, other (S1,S2) Gastrointestinal: normoactive bowel sounds, soft, non-tender, non-distended Integumentary: normal Extremities: no cyanosis, no edema, pink and warm, pulses normal Neurologic: pupils equal and round, other (functional quadriplegia) Psychiatric: other (sedated) CBC and BMP: 04/08/22 04:49 04/08/22 04:49 ABG, PT/INR, D-dimer: ABG ABG pH 7.413 pH Units (7.350-7.450) 04/07/22 04:25 ABG pCO2 50.5 mm Hg 04/07/22 04:25 ABG pO2 71.0 mm Hg (80.0-90.0) L 04/07/22 04:25 ABG O2 Saturation 97.2 % (95.0-99.0) 04/07/22 04:25 PT/INR, D-dimer PT 15.2 Sec. (12.2-14.9) H 04/07/22 03:51 INR 1.08 (0.87-1.13) 04/07/22 03:51 Abnormal lab findings: Abnormal Labs 04/02/22 04/02/22 04/02/22 19:39 19:39 19:39 WBC 14.3 H RBC Hgb Hct MCV 96 H Plt Count 104 L Lymph % (Auto) [place] % (Auto) Lymph # (Auto) [place] # (Auto) Seg Neutrophils % Seg Neuts % (Manual) 94.0 H Lymphocytes % (Manual) 1.0 L Seg Neutrophils # Seg Neutrophils # Man 13.4 H Lymphocytes # (Manual) 0.1 L PT 15.9 H INR 1.14 H ABG pH ABG pO2 ABG HCO3 ABG O2 Saturation ABG Base Excess ABG Hemoglobin Oxyhemoglobin Sodium 151 H Potassium Chloride Carbon Dioxide Creatinine 0.5 L Glucose POC Glucose Calcium 8.2 L Phosphorus Magnesium 1.60 L Troponin T 0.048 H C-Reactive Protein Total Protein 4.6 L Albumin 2.7 L LDL Cholesterol Direct 27 L Urine WBC (Auto) 04/02/22 04/03/22 04/03/22 19:42 05:14 06:30 WBC RBC Hgb Hct MCV Plt Count Lymph % (Auto) [place] % (Auto) Lymph # (Auto) [place] # (Auto) Seg Neutrophils % Seg Neuts % (Manual) Lymphocytes % (Manual) Seg Neutrophils # Seg Neutrophils # Man Lymphocytes # (Manual) PT INR ABG pH 7.471 H 7.496 H ABG pO2 47.8 L 91.0 H ABG HCO3 30.6 H ABG O2 Saturation 94.4 L ABG Base Excess 6.2 H ABG Hemoglobin 11.0 L 12.8 L Oxyhemoglobin 93.1 L Sodium 149 H Potassium 3.4 L Chloride Carbon Dioxide Creatinine 0.4 L Glucose POC Glucose Calcium Phosphorus Magnesium Troponin T C-Reactive Protein Total Protein Albumin LDL Cholesterol Direct Urine WBC (Auto) 04/04/22 04/04/22 04/04/22 04:18 04:18 05:50 WBC 11.8 H RBC Hgb Hct MCV Plt Count 132 L Lymph % (Auto) [place] % (Auto) Lymph # (Auto) [place] # (Auto) Seg Neutrophils % Seg Neuts % (Manual) Lymphocytes % (Manual) Seg Neutrophils # Seg Neutrophils # Man Lymphocytes # (Manual) PT INR ABG pH 7.517 H ABG pO2 115.5 H ABG HCO3 29.9 H ABG O2 Saturation ABG Base Excess 6.7 H ABG Hemoglobin 12.3 L Oxyhemoglobin Sodium Potassium 3.5 L Chloride Carbon Dioxide 31 H Creatinine 0.3 L Glucose 153 H POC Glucose Calcium Phosphorus 1.40 L Magnesium 1.50 L Troponin T C-Reactive Protein 31.60 H Total Protein Albumin LDL Cholesterol Direct Urine WBC (Auto) 04/05/22 04/05/22 04/05/22 02:50 05:25 11:28 WBC RBC Hgb Hct MCV Plt Count Lymph % (Auto) [place] % (Auto) Lymph # (Auto) [place] # (Auto) Seg Neutrophils % Seg Neuts % (Manual) Lymphocytes % (Manual) Seg Neutrophils # Seg Neutrophils # Man Lymphocytes # (Manual) PT INR ABG pH 7.455 H ABG pO2 50.7 L ABG HCO3 30.5 H ABG O2 Saturation 89.4 L ABG Base Excess 5.9 H ABG Hemoglobin 11.8 L Oxyhemoglobin 88.2 L Sodium Potassium Chloride Carbon Dioxide 32 H Creatinine 0.2 L Glucose 110 H POC Glucose 124 H Calcium 7.9 L Phosphorus Magnesium Troponin T C-Reactive Protein Total Protein Albumin LDL Cholesterol Direct Urine WBC (Auto) 04/05/22 04/05/22 04/06/22 17:45 Unknown 04:00 WBC RBC 3.55 L Hgb 11.1 L 11.5 L Hct 33.2 L 35.1 L MCV Plt Count 113 L 114 L Lymph % (Auto) [place] % (Auto) Lymph # (Auto) [place] # (Auto) Seg Neutrophils % Seg Neuts % (Manual) Lymphocytes % (Manual) Seg Neutrophils # Seg Neutrophils # Man Lymphocytes # (Manual) PT INR ABG pH ABG pO2 ABG HCO3 ABG O2 Saturation ABG Base Excess ABG Hemoglobin Oxyhemoglobin Sodium Potassium Chloride Carbon Dioxide Creatinine Glucose POC Glucose Calcium Phosphorus Magnesium Troponin T C-Reactive Protein Total Protein Albumin LDL Cholesterol Direct Urine WBC (Auto) 8.0 H 04/06/22 04/06/22 04/07/22 04:00 08:30 00:04 WBC RBC Hgb Hct MCV Plt Count Lymph % (Auto) [place] % (Auto) Lymph # (Auto) [place] # (Auto) Seg Neutrophils % Seg Neuts % (Manual) Lymphocytes % (Manual) Seg Neutrophils # Seg Neutrophils # Man Lymphocytes # (Manual) PT INR ABG pH ABG pO2 60.8 L ABG HCO3 30.5 H ABG O2 Saturation 93.3 L ABG Base Excess 4.9 H ABG Hemoglobin 12.4 L Oxyhemoglobin 92.1 L Sodium Potassium 3.0 L Chloride Carbon Dioxide Creatinine < 0.2 L Glucose 130 H POC Glucose 117 H Calcium 8.1 L Phosphorus Magnesium Troponin T C-Reactive Protein Total Protein Albumin LDL Cholesterol Direct Urine WBC (Auto) 04/07/22 04/07/22 04/07/22 03:51 03:51 03:51 WBC 14.6 H RBC 3.57 L Hgb 11.1 L Hct 33.2 L MCV Plt Count 118 L Lymph % (Auto) 4.3 L [place] % (Auto) 8.8 H Lymph # (Auto) 0.6 L [place] # (Auto) 1.3 H Seg Neutrophils % 86.6 H Seg Neuts % (Manual) Lymphocytes % (Manual) Seg Neutrophils # 12.7 H Seg Neutrophils # Man Lymphocytes # (Manual) PT 15.2 H INR ABG pH ABG pO2 ABG HCO3 ABG O2 Saturation ABG Base Excess ABG Hemoglobin Oxyhemoglobin Sodium 133 L Potassium Chloride 96.0 L Carbon Dioxide 31 H Creatinine 0.2 L Glucose 130 H POC Glucose Calcium 8.0 L Phosphorus Magnesium Troponin T C-Reactive Protein Total Protein Albumin LDL Cholesterol Direct Urine WBC (Auto) 04/07/22 04:25 WBC RBC Hgb Hct MCV Plt Count Lymph % (Auto) [place] % (Auto) Lymph # (Auto) [place] # (Auto) Seg Neutrophils % Seg Neuts % (Manual) Lymphocytes % (Manual) Seg Neutrophils # Seg Neutrophils # Man Lymphocytes # (Manual) PT INR ABG pH ABG pO2 71.0 L ABG HCO3 31.5 H ABG O2 Saturation ABG Base Excess 5.9 H ABG Hemoglobin 11.3 L Oxyhemoglobin Sodium Potassium Chloride Carbon Dioxide Creatinine Glucose POC Glucose Calcium Phosphorus Magnesium Troponin T C-Reactive Protein Total Protein Albumin LDL Cholesterol Direct Urine WBC (Auto) Chest x-ray: image reviewed (small volume RLL atelectasis / small effusion) Allied health notes reviewed: nursing
--- NOTE | 2022-04-07 14:51 | Ultrasound Report ---
Limited right chest Ultrasound HISTORY: resp failure, worsenig right pleural efusion. TECHNIQUE: Grayscale and color imaging performed. COMPARISON: Chest x-ray from today IMPRESSION: There is a trace right-sided pleural effusion, inadequate for thoracentesis. Signer Name: Ponce Vuong MD Signed: 04/07/2022 2:46 PM Workstation Name: [id number]
--- NOTE | 2022-04-07 15:05 | Progress Note ---
<JUAN MARTIN - Last Filed: 04/07/22 15:13> 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, recently hospitalized at [facility] admitted for acute hypoxemic respiratory failure 2/2 pneumonia Neuro: h/o ALS -Sedated with precedex and fentanyl gtt -RASS goal 0 to -1 -Avoid delirium -Reorientation as needed -Maintain sleep-wake cycle -aspiration/seizure precautions -As needed analgesia -CT head with no acute intracranial process -Neurology consulted, appreciate recommendations -Per family patient is nonverbal at baseline but responsive Cardiac: Hypotension, elevated troponin, h/o cardiomyopathy -Cardiology consulted, appreciate recommendations -Blood pressure monitoring per protocol -Vasopressor support with Levophed -Echocardiogram shows ejection fraction of 40 to 45%, mild global hypokinesis of left ventricle Respiratory: Acute hypoxic respiratory failure -CCM consulted, appreciate recommendations -Intubated on 04/02 with a 7.50 ETT attempt at the lips -A.m. vent settings: Assist-control/ PRVC TV 400, rate 14, Peep 8, FiO2 35% -See RT notes for titration -Chest US with possible thoracentisis completed -not enough fluid to drain -CPT and mucomyst -A.m. ABG and CXR noted -VAP bundle -SPO2 monitoring GI: Constipation, Moderate protein calorie malnutrition -24 hours +1302 mL -PPI -NTR consulted for tube feedings -BR: Senokot/colace -add miralax, ducolex NC prn : NAD -Strict intake and output -Renally dose medications -Avoid nephrotoxic medications -Daily weights -trend BMP ID: Sepsis, Acute Bronchopneumonia, HAP (Pseudomonas and Enterobacter tracheal aspirate), blood culture with bacillus species -Infectious disease consulted, appreciate recommendation -Per infectious disease patient was recently admitted to [facility] but discharged home with home hospice and not giving antibiotics -Antibiotic therapy with cefepime -f/u blood culture -Tracheal aspirate with Pseudomonas aeruginosa, Enterobacter aerogenes -CRP 31.6, procalcitonin 0.08 -Monitor WBC and temperature curve Endo: NAD -Avoid hypoglycemia -SSI -Accu-Cheks q 6 Heme: Thrombocytopenia, leukocytosis -Heparin subq -Trend CBC -Transfuse hemoglobin less than 7 -Monitor for signs of bleeding -SCDs to BLE while in bed Advance Care Planning - Disease education, care plan, diagnoses, and prognosis were discussed patient's , Carly Lopez, and patient daughter, Kaylee Warren, who translated for #[phone]. They reported that patient was following at [facility] for his ALS and during recent hospitalization at [facility] they were told nothing else can be offered to patient at this time and patient was discharge home with home hospice and PO morphine. First hospice visit was on , 04/01 however, patient became unresponsive 04/02 and they brought in to the hospital. - Goal of care and code status were also addressed at that time. Family wants to wait for a couple days to see how patient respond to current treatment before making a decision. All questions and concerns were addressed at this time. Patient family acknowledged understanding and agreement with care plan. -Patient remains a FULL CODE status. -04/05: Discussion at bedside with interpreting service with Dr. Valdivia and family state they would discuss next steps amongst themselves and let healthcare team know of decisions -04/06: extensive discussion with family ( and son) with Dr. Grayson regarding goals of care The high probability of a clinically significant, sudden or life threatening deterioration of the [multiple] system(s) required my full and direct attention, intervention and personal management. The aggregate critical care time was [60] minutes. This time is in addition to time spent performing reported procedures but includes the following: [x] Data Review and interpretation [x] Patient assessment and monitoring of vital signs [x] Documentation [x] Medication orders and management Disposition Plan: icu Total Time Spent with Patient (Minutes): 60 History Interval history: This is a 57-year-old male with ALS who presented to the emergency department on 04/02 with complaints of altered mental status and respiratory distress he was recently discharged home from [facility] with a diagnosis of pneumonia and elevated troponins. Work-up in the emergency department revealed leukocytosis, elevated troponin and hyponatremia and CXR revealed moderate to large pleural effusion on the right. Patient was having agonal breathing in the emergency department and was intubated. Patient was admitted to the hospitalist service with consults to CCM, cardiology and infectious disease for further work-up. Hospital Course to Date: 04/03: Intubated and Sedated on versed gtt, RASS-5. CT head/brain noted with no acute intracranial abnormality. Plan to initiated precededx gtt and wean off versed for a RASS goal of 0 to -2. CT chect also reviewed, findings are most consistent with acute bronchopneumonia. Continue empiric IV Abx, vent adjustment per CCM. ID consulted. Continue to F/U on cultures. Titrate pressor for MAP above 65. Medical records requested from [facility]. 04/04: Remains stable on the vent, easily arousable on precedex gtt, not following commands. Plan for SAT/SBT today. PRN analgesia for CPOT greater than 3. Fevers improved, cultures and procal pending. Continue current IV abx, ID also consulted. Remains on low dose pressors, titrate pressors for a MAP above 65. 04/05: Long discussion with family with use of translation phone with [facility] regarding goals of care. Family to have meeting amongst themselves and informed care team of decisions. Fentanyl drip added for respiratory distress. Remains on Precedex drip. Antibiotics per ID. Given 2L NS bolus with levophed gtt 04/06: Family discussion with Dr. Grayson for goals of care. CXR shows possible mucus plug, continue CPT as FiO2 is being able to be weaned. Potassium repleted. Weaning fentnyl gtt. 04/07: Ultrasound guided thoracentesis today scheduled, inadequate amount of pleural effusion on so not completed. Patient was started on Levophed overnight which was weaned off this morning however had to be started twice a day. Remains on fentanyl and Precedex. Cardiology discontinued BB and ACEi in setting of hypotension. Hospitalist Physical - Constitutional Vitals: Temp Pulse Resp BP Pulse Ox 98.9 F 87 18 104/68 93 04/07/22 11:32 04/07/22 14:00 04/07/22 14:00 04/07/22 14:00 04/07/22 14:00 General appearance: Present: no acute distress, cachectic, other (Intubated, easily arousable on precedex gtt) - EENT Eyes: Present: PERRL, EOM intact ENT: poor dentition - Neck Neck: Present: normal ROM - Respiratory Respiratory effort: normal Respiratory: bilateral: diminished - Cardiovascular Rhythm: regular Heart Sounds: Present: S1 & S2. Absent: systolic murmur, diastolic murmur - Extremities Extremities: no ischemia, pulses intact, pulses symmetrical, No edema, normal temperature, normal color Peripheral Pulses: within normal limits - Abdominal General gastrointestinal: soft, non-tender, non-distended, normal bowel sounds - Integumentary Integumentary: Present: warm, dry - Psychiatric Psychiatric: cooperative - Neurologic Neurologic: other (PERRL, moves BUE,positive track/focus) - Allied Health Allied health notes reviewed: nursing, RT, social work HEART Score - HEART Score Troponin: Troponin T 0.048 ng/mL (0.00-0.029) H 04/02/22 19:39 Results - Labs CBC & Chem 7: 04/07/22 03:51 04/07/22 03:51 Labs: Laboratory Last Values WBC 14.6 K/mm3 (4.5-11.0) H 04/07/22 03:51 RBC 3.57 M/mm3 (3.65-5.03) L 04/07/22 03:51 Hgb 11.1 gm/dl (11.8-15.2) L 04/07/22 03:51 Hct 33.2 % (35.5-45.6) L 04/07/22 03:51 MCV 93 fl (84-94) 04/07/22 03:51 MCH 31 pg (28-32) 04/07/22 03:51 MCHC 34 % (32-34) 04/07/22 03:51 RDW 13.9 % (13.2-15.2) 04/07/22 03:51 Plt Count 118 K/mm3 (140-440) L 04/07/22 03:51 Lymph % (Auto) 4.3 % (13.4-35.0) L 04/07/22 03:51 [place] % (Auto) 8.8 % (0.0-7.3) H 04/07/22 03:51 Eos % (Auto) 0.1 % (0.0-4.3) 04/07/22 03:51 Baso % (Auto) 0.2 % (0.0-1.8) 04/07/22 03:51 Lymph # (Auto) 0.6 K/mm3 (1.2-5.4) L 04/07/22 03:51 [place] # (Auto) 1.3 K/mm3 (0.0-0.8) H 04/07/22 03:51 Eos # (Auto) 0.0 K/mm3 (0.0-0.4) 04/07/22 03:51 Baso # (Auto) 0.0 K/mm3 (0.0-0.1) 04/07/22 03:51 Add Manual Diff Complete 04/02/22 19:39 Total Counted 100 04/02/22 19:39 Seg Neutrophils % 86.6 % (40.0-70.0) H 04/07/22 03:51 Seg Neuts % (Manual) 94.0 % (40.0-70.0) H 04/02/22 19:39 Band Neutrophils % 0 % 04/02/22 19:39 Lymphocytes % (Manual) 1.0 % (13.4-35.0) L 04/02/22 19:39 Reactive Lymphs % (Man) 0 % 04/02/22 19:39 Monocytes % (Manual) 5.0 % (0.0-7.3) 04/02/22 19:39 Eosinophils % (Manual) 0 % (0.0-4.3) 04/02/22 19:39 Basophils % (Manual) 0 % (0.0-1.8) 04/02/22 19:39 Metamyelocytes % 0 % 04/02/22 19:39 Myelocytes % 0 % 04/02/22 19:39 Promyelocytes % 0 % 04/02/22 19:39 Blast Cells % 0 % 04/02/22 19:39 Nucleated RBC % Not Reportable 04/02/22 19:39 Seg Neutrophils # 12.7 K/mm3 (1.8-7.7) H 04/07/22 03:51 Seg Neutrophils # Man 13.4 K/mm3 (1.8-7.7) H 04/02/22 19:39 Band Neutrophils # 0.0 K/mm3 04/02/22 19:39 Lymphocytes # (Manual) 0.1 K/mm3 (1.2-5.4) L 04/02/22 19:39 Abs React Lymphs (Man) 0.0 K/mm3 04/02/22 19:39 Monocytes # (Manual) 0.7 K/mm3 (0.0-0.8) 04/02/22 19:39 Eosinophils # (Manual) 0.0 K/mm3 (0.0-0.4) 04/02/22 19:39 Basophils # (Manual) 0.0 K/mm3 (0.0-0.1) 04/02/22 19:39 Metamyelocytes # 0.0 K/mm3 04/02/22 19:39 Myelocytes # 0.0 K/mm3 04/02/22 19:39 Promyelocytes # 0.0 K/mm3 04/02/22 19:39 Blast Cells # 0.0 K/mm3 04/02/22 19:39 WBC Morphology Not Reportable 04/02/22 19:39 Hypersegmented Neuts Not Reportable 04/02/22 19:39 Hyposegmented Neuts Not Reportable 04/02/22 19:39 Hypogranular Neuts Not Reportable 04/02/22 19:39 Smudge Cells Not Reportable 04/02/22 19:39 Toxic Granulation Not Reportable 04/02/22 19:39 Toxic Vacuolation Not Reportable 04/02/22 19:39 Dohle Bodies Not Reportable 04/02/22 19:39 Pelger-Huet Anomaly Not Reportable 04/02/22 19:39 Terry Rods Not Reportable 04/02/22 19:39 Platelet Estimate Consistent w auto 04/02/22 19:39 Clumped Platelets Not Reportable 04/02/22 19:39 Plt Clumps, EDTA Not Reportable 04/02/22 19:39 Large Platelets Not Reportable 04/02/22 19:39 Giant Platelets Not Reportable 04/02/22 19:39 Platelet Satelliting Not Reportable 04/02/22 19:39 Plt Morphology Comment Not Reportable 04/02/22 19:39 RBC Morphology Not Reportable 04/02/22 19:39 Dimorphic RBCs Not Reportable 04/02/22 19:39 Polychromasia Not Reportable 04/02/22 19:39 Hypochromasia Not Reportable 04/02/22 19:39 Poikilocytosis Not Reportable 04/02/22 19:39 Anisocytosis 1+ 04/02/22 19:39 Microcytosis Not Reportable 04/02/22 19:39 Macrocytosis Not Reportable 04/02/22 19:39 Spherocytes Not Reportable 04/02/22 19:39 Pappenheimer Bodies Not Reportable 04/02/22 19:39 Sickle Cells Not Reportable 04/02/22 19:39 Target Cells Not Reportable 04/02/22 19:39 Tear Drop Cells Not Reportable 04/02/22 19:39 Ovalocytes Not Reportable 04/02/22 19:39 Helmet Cells Not Reportable 04/02/22 19:39 Patricio-Buckner Bodies Not Reportable 04/02/22 19:39 [place] Rings Not Reportable 04/02/22 19:39 [place] Cells Not Reportable 04/02/22 19:39 Bite Cells Not Reportable 04/02/22 19:39 Crenated Cell Not Reportable 04/02/22 19:39 Elliptocytes Not Reportable 04/02/22 19:39 Acanthocytes (Spur) Not Reportable 04/02/22 19:39 Rouleaux Not Reportable 04/02/22 19:39 Hemoglobin C Crystals Not Reportable 04/02/22 19:39 Schistocytes Not Reportable 04/02/22 19:39 Malaria parasites Not Reportable 04/02/22 19:39 [place] Bodies Not Reportable 04/02/22 19:39 Hem Pathologist Commnt No 04/02/22 19:39 PT 15.2 Sec. (12.2-14.9) H 04/07/22 03:51 INR 1.08 (0.87-1.13) 04/07/22 03:51 APTT 35.7 Sec. (24.2-36.6) 04/07/22 03:51 ABG pH 7.413 pH Units (7.350-7.450) 04/07/22 04:25 ABG pCO2 50.5 mm Hg 04/07/22 04:25 ABG pO2 71.0 mm Hg (80.0-90.0) L 04/07/22 04:25 ABG HCO3 31.5 mmol/L (20.0-26.0) H 04/07/22 04:25 ABG O2 Saturation 97.2 % (95.0-99.0) 04/07/22 04:25 ABG O2 Content 15.3 (0.0-44) 04/07/22 04:25 ABG Base Excess 5.9 mmol/L (-2.0-3.0) H 04/07/22 04:25 ABG Hemoglobin 11.3 gm/dl (14.0-18.0) L 04/07/22 04:25 ABG Carboxyhemoglobin 1.0 % (0.0-5.0) 04/07/22 04:25 ABG Methemoglobin 0.3 % (0.0-1.5) 04/07/22 04:25 Oxyhemoglobin 95.8 % (95.0-99.0) 04/07/22 04:25 FiO2 35 % 04/07/22 04:25 Sodium 133 mmol/L (137-145) L 04/07/22 03:51 Potassium 4.6 mmol/L (3.6-5.0) D 04/07/22 03:51 Chloride 96.0 mmol/L (98-107) L 04/07/22 03:51 Carbon Dioxide 31 mmol/L (22-30) H 04/07/22 03:51 Anion Gap 11 mmol/L 04/07/22 03:51 BUN 12 mg/dL (9-20) 04/07/22 03:51 Creatinine 0.2 mg/dL (0.8-1.3) L 04/07/22 03:51 Estimated GFR > 60 ml/min 04/07/22 03:51 BUN/Creatinine Ratio 60 % 04/07/22 03:51 Glucose 130 mg/dL (75-100) H 04/07/22 03:51 POC Glucose 117 mg/dL (70-105) H 04/07/22 00:04 Lactic Acid 1.90 mmol/L (0.7-2.0) 04/02/22 19:39 Calcium 8.0 mg/dL (8.4-10.2) L 04/07/22 03:51 Phosphorus 3.50 mg/dL (2.5-4.5) D 04/05/22 02:50 Magnesium 2.00 mg/dL (1.7-2.3) 04/05/22 02:50 Total Bilirubin 0.80 mg/dL (0.1-1.2) 04/02/22 19:39 AST 15 units/L (5-40) 04/02/22 19:39 ALT 9 units/L (7-56) 04/02/22 19:39 Alkaline Phosphatase 43 units/L (35-129) 04/02/22 19:39 Troponin T 0.048 ng/mL (0.00-0.029) H 04/02/22 19:39 C-Reactive Protein 31.60 mg/dL (0.00-1.30) H 04/04/22 04:18 Total Protein 4.6 g/dL (6.3-8.2) L 04/02/22 19:39 Albumin 2.7 g/dL (3.9-5) L 04/02/22 19:39 Albumin/Globulin Ratio 1.4 % 04/02/22 19:39 Triglycerides 80 mg/dL (2-149) 04/02/22 19:39 Cholesterol 94 mg/dL (50-199) 04/02/22 19:39 LDL Cholesterol Direct 27 mg/dL (50-130) L 04/02/22 19:39 HDL Cholesterol 47 mg/dL (40-59) 04/02/22 19:39 Cholesterol/HDL Ratio 2.00 % 04/02/22 19:39 Procalcitonin 0.08 ng/mL (<0.15) 04/04/22 04:18 Urine Color Aracely (Yellow) 04/05/22 17:45 Urine Turbidity Cloudy (Clear) 04/05/22 17:45 Urine pH 5.0 (5.0-7.0) 04/05/22 17:45 Ur Specific [place] 1.021 (1.003-1.030) 04/05/22 17:45 Urine Protein 30 mg/dl mg/dL (Negative) 04/05/22 17:45 Urine Glucose (UA) Neg mg/dL (Negative) 04/05/22 17:45 Urine Ketones Tr mg/dL (Negative) 04/05/22 17:45 Urine Blood Sm (Negative) 04/05/22 17:45 Urine Nitrite Neg (Negative) 04/05/22 17:45 Urine Bilirubin Neg (Negative) 04/05/22 17:45 Urine Urobilinogen < 2.0 mg/dL (<2.0) 04/05/22 17:45 Ur Leukocyte Esterase Tr (Negative) 04/05/22 17:45 Urine WBC (Auto) 8.0 /HPF (0.0-6.0) H 04/05/22 17:45 Urine RBC (Auto) 3.0 /HPF (0.0-6.0) 04/05/22 17:45 U Epithel Cells (Auto) 2.0 /HPF (0-13.0) 04/05/22 17:45 Urine Bacteria (Auto) 1+ /HPF (Negative) 04/02/22 Unknown Hyaline Casts 1 /LPF 04/05/22 17:45 Urine Mucus 3+ /HPF 04/05/22 17:45 Nasal Screen MRSA (PCR) Negative (Negative) 04/05/22 12:37 Vancomycin Trough 6.0 ug/mL (5.0-20.0) 04/05/22 18:53 Microbiology: Microbiology 04/02/22 19:39 Peripheral/Venous Blood Culture - Preliminary NO GROWTH AFTER 4 DAYS 04/05/22 18:53 Peripheral/Venous Blood Culture - Preliminary NO GROWTH AFTER 24 HOURS 04/05/22 18:53 Peripheral/Venous Blood Culture - Preliminary NO GROWTH AFTER 24 HOURS 04/02/22 19:03 Urine,Catheterized - Indwelling Catheter Urine Culture - Final NO GROWTH AFTER 48 HOURS Perez/IV: Voiding Method Indwelling Catheter Active Medications - Current Medications Current Medications: Generic Name Dose Route Start Last Admin Trade Name Freq PRN Reason Stop Dose Admin Acetaminophen 650 mg 04/02/22 23:53 04/06/22 20:00 Acetaminophen 325 Mg Tab PO 650 mg Q6H PRN Administration Pain MILD(1-3)/Fever >100.5/FAITH Acetylcysteine 200 mg 04/06/22 11:45 04/07/22 07:46 Acetylcysteine 20% 200 Mg/1 Ml *For Inhalation Use* INHALATION 04/09/22 00:01 200 mg Q8HRT SEGUNDO Administration Albuterol 2.5 mg 04/06/22 16:00 04/07/22 07:46 Albuterol 2.5 Mg/3 Ml Nebu IH 2.5 mg Q8HRT SEGUNDO Administration Bisacodyl 10 mg 04/07/22 09:44 Bisacodyl 10 Mg Rect Supp NC QDAY PRN Constipation Carvedilol 3.125 mg 04/06/22 22:00 04/07/22 09:04 Carvedilol 3.125 Mg Tab PO Not Given BID SEGUNDO Dextrose 50 ml 04/06/22 17:54 Dextrose 50% In Water (25gm) 50 Ml Syringe IV Q30MIN PRN Hypoglycemia Protocol Docusate Sodium 100 mg 04/03/22 15:00 04/07/22 09:04 Docusate Sodium 100 Mg/10 Ml Oral Liqd PO Not Given BID SEGUNDO Famotidine 20 mg 04/06/22 10:00 04/07/22 09:04 Famotidine 20 Mg Tab FEEDTUBE Not Given BID SEGUNDO Fentanyl 50 mcg 04/04/22 15:56 04/06/22 04:10 Fentanyl 100 Mcg/2 Ml Inj IV 50 mcg Q2HR PRN Administration For CPOT of greater than 2 Heparin Sodium (Porcine) 5,000 unit 04/03/22 06:00 04/07/22 13:38 Heparin 5,000 Unit/1 Ml Vial SUB-Q Not Given Q8HR SEGUNDO NORepinephrine/NS 8 MG-250 ML 8 mg in 250 mls @ 3.75 mls/hr 04/02/22 22:00 04/07/22 12:49 Norepinephrine/Ns 8 Mg-250 Ml (Double Conc) IV 12 mcg/min TITRATE SEGUNDO 22.5 mls/hr Titration Protocol 2 MCG/MIN Dexmedetomidine HCl 400 mcg/ 104 mls @ 2.434 mls/hr 04/03/22 07:00 04/07/22 11:46 Sodium Chloride IV 0.6 mcg/kg/hr TITRATE SEGUNDO 7.301 mls/hr Titration Protocol 0.2 MCG/KG/HR Cefepime HCl 2 gm in 100 mls @ 200 mls/hr 04/03/22 18:00 04/07/22 06:43 Cefepime/Ns 2 Gm/100 Ml IV Infused Q12H [facility] Infusion Protocol Fentanyl Citrate 2,000 mcg in 100 mls @ 2.34 mls/hr 04/05/22 11:00 04/07/22 14:08 Fentanyl Drip Premix IV 4 mcg/kg/hr TITR SEGUNDO 9.36 mls/hr Administration Protocol 1 MCG/KG/HR Insulin Human Regular 0 units 04/06/22 18:00 04/07/22 11:37 Insulin Regular, Human 100 Units/1 Ml SUB-Q Not Given Q6H [facility] Protocol Lisinopril 5 mg 04/07/22 10:00 04/07/22 09:04 Lisinopril 5 Mg Tab PO Not Given QDAY SEGUNDO Magnesium Hydroxide 30 ml 04/02/22 23:53 Magnesium Hydroxide (Mom) Oral Liqd Udc PO Q4H PRN Constipation Ondansetron HCl 4 mg 04/02/22 23:53 Ondansetron 4 Mg/2 Ml Inj IV Q8H PRN Nausea And Vomiting Senna 17.6 mg 04/03/22 22:00 04/07/22 09:04 Sennosides Oral Liqd 8.8 Mg/5 Ml Oral Liqd PO Not Given Q12HR SEGUNDO Sodium Chloride 10 ml 04/03/22 10:00 04/07/22 09:04 Sodium Chloride 0.9% 10 Ml Flush Syringe IV 10 ml BID SEGUNDO Administration Sodium Chloride 10 ml 04/02/22 23:53 Sodium Chloride 0.9% 10 Ml Flush Syringe IV PRN PRN LINE FLUSH Nutrition/Malnutrition Assess - Dietary Evaluation Nutrition/Malnutrition Findings: Nutrition Notes Start: 04/04/22 13:13 Freq: Status: Active Protocol: Document 04/06/22 12:38 COLLEEN (Rec: 04/06/22 13:23 COLLEEN [id number]) Nutrition Notes Initial or Follow up Reassessment Current Diagnosis Sepsis,Respiratory Failure, Malnutrition Other Pertinent Diagnosis HAP, HFpEF, Elevated Troponin, ALS, Hypokalemia, Hypotension , ... Current Diet TF-Vital AF 1.2 Inderjit @ 50 ml/hr (since D 04/06) Labs/Tests 04/06: K 3.0, Crea <0.2, Glu 130, Ca 8.1. Pertinent Medications 04/06: KCl 40mEq, others nutritionally unremarkable. Height 5 ft 4.8 in Weight 46.8 kg Green Body Weight (kg) 61.27 BMI 17.2 Intake Prior to Admission Poor Weight change and time frame No body weight change reported in 2 days. Weight Status Underweight Subjective/Other Information RD consult for routine F/U on TF tolerance/ continuation, and Low BMI assessment. Pt continues TF as prescribed, well tolerated, according to RN. Pt is on Mechanical ventilation, O2 saturation @ 96%, according to Physical Assessment Histroy notes. Pt presents constipation, according to Physical Assessment Histroy notes. Pt is swallow and Chewing impaired, according to Physical Assessment Histroy notes. Pt is alert and oriented, but continues on Mechanical Ventilation, according to Progress notes. Pt's Low BMI seems to correspond to a natural body composition, and not related to a sudden loss of body weight nor chronic malnutrition, since no signs of concern were mentioned in the Physical Assessment History or the Progress notes. Percent of energy/protein needs met: Prescribed TF-Vital AF 1.2 Inderjit @ 50 ml/hr provides for energy/protein needs (1,450 Kcal/91 g) during LOS, 98% Kcal; 100% AA. Burn Absent Trauma Absent GI Symptoms Constipation Difficulty In Swallowing,Chewing Food Allergy No Skin Integrity/Comment Unspecified Area of Concern. Current % PO Other Minimum of two criteria No #1 Nutrition Diagnosis Swallowing difficulty,Biting/ Chewing (masticatory) difficulty Comments: Change Nutrition Diagnostic for precision. Etiology ALS, Mechanical Ventilation. As Evidenced by Signs and Symptoms Pt currently on TF. Is patient on ventilator? Yes Is Patient Ambulatory and/or Out of Bed No REE-([facility]-confined to bed) [phone] Calculation Used for Recommendations [facility] Additional Notes Protein: 1.2-2 g/Kg IBW; 73- 122 g/day. Fluids: 1 ml/Kcal, or as per MD. Nutrition Intervention Nutrition Support: Continue TF-Vital AF 1.2 Inderjit @ 50 ml/hr. Flush: 80 ml water Q 4 hr, or as per MD. Kcal 1,450 Protein (gm) 91 Carbohydrates (gm) 134 Fat (gm) 65 Fluid (mL) 980 Fiber (gm) 6 % RDI: 98% Kcal; 100% AA. Goal #1 Provide at least 75% of energy /protein needs through Enteral Feeding during LOS. Goal #2 Maintain body weight within +/ -3% of admission body weight during LOS. Follow-Up By: 04/13/22 Additional Comments Continue monitoring TF tolerance and BM. <NORM GRAYSON - Last Filed: 04/08/22 07:41> Assessment and Plan Assessment and plan: I saw and evaluated the patient. Discussed with the nurse practitioner and agree with their findings and plan as documented in this note. Hospitalist Physical - Constitutional Vitals: Temp Pulse Resp BP Pulse Ox 99.1 F 73 14 104/64 100 04/08/22 04:00 04/08/22 06:20 04/08/22 06:20 04/08/22 06:20 04/08/22 06:20 HEART Score - HEART Score Troponin: Troponin T 0.048 ng/mL (0.00-0.029) H 04/02/22 19:39 Results - Labs CBC & Chem 7: 04/08/22 04:49 04/08/22 04:49 Labs: Laboratory Last Values WBC 16.1 K/mm3 (4.5-11.0) H 04/08/22 04:49 RBC 3.54 M/mm3 (3.65-5.03) L 04/08/22 04:49 Hgb 10.9 gm/dl (11.8-15.2) L 04/08/22 04:49 Hct 33.3 % (35.5-45.6) L 04/08/22 04:49 MCV 94 fl (84-94) 04/08/22 04:49 MCH 31 pg (28-32) 04/08/22 04:49 MCHC 33 % (32-34) 04/08/22 04:49 RDW 13.7 % (13.2-15.2) 04/08/22 04:49 Plt Count 162 K/mm3 (140-440) 04/08/22 04:49 Lymph % (Auto) 4.3 % (13.4-35.0) L 04/07/22 03:51 [place] % (Auto) 8.8 % (0.0-7.3) H 04/07/22 03:51 Eos % (Auto) 0.1 % (0.0-4.3) 04/07/22 03:51 Baso % (Auto) 0.2 % (0.0-1.8) 04/07/22 03:51 Lymph # (Auto) 0.6 K/mm3 (1.2-5.4) L 04/07/22 03:51 [place] # (Auto) 1.3 K/mm3 (0.0-0.8) H 04/07/22 03:51 Eos # (Auto) 0.0 K/mm3 (0.0-0.4) 04/07/22 03:51 Baso # (Auto) 0.0 K/mm3 (0.0-0.1) 04/07/22 03:51 Add Manual Diff Complete 04/02/22 19:39 Total Counted 100 04/02/22 19:39 Seg Neutrophils % 86.6 % (40.0-70.0) H 04/07/22 03:51 Seg Neuts % (Manual) 94.0 % (40.0-70.0) H 04/02/22 19:39 Band Neutrophils % 0 % 04/02/22 19:39 Lymphocytes % (Manual) 1.0 % (13.4-35.0) L 04/02/22 19:39 Reactive Lymphs % (Man) 0 % 04/02/22 19:39 Monocytes % (Manual) 5.0 % (0.0-7.3) 04/02/22 19:39 Eosinophils % (Manual) 0 % (0.0-4.3) 04/02/22 19:39 Basophils % (Manual) 0 % (0.0-1.8) 04/02/22 19:39 Metamyelocytes % 0 % 04/02/22 19:39 Myelocytes % 0 % 04/02/22 19:39 Promyelocytes % 0 % 04/02/22 19:39 Blast Cells % 0 % 04/02/22 19:39 Nucleated RBC % Not Reportable 04/02/22 19:39 Seg Neutrophils # 12.7 K/mm3 (1.8-7.7) H 04/07/22 03:51 Seg Neutrophils # Man 13.4 K/mm3 (1.8-7.7) H 04/02/22 19:39 Band Neutrophils # 0.0 K/mm3 04/02/22 19:39 Lymphocytes # (Manual) 0.1 K/mm3 (1.2-5.4) L 04/02/22 19:39 Abs React Lymphs (Man) 0.0 K/mm3 04/02/22 19:39 Monocytes # (Manual) 0.7 K/mm3 (0.0-0.8) 04/02/22 19:39 Eosinophils # (Manual) 0.0 K/mm3 (0.0-0.4) 04/02/22 19:39 Basophils # (Manual) 0.0 K/mm3 (0.0-0.1) 04/02/22 19:39 Metamyelocytes # 0.0 K/mm3 04/02/22 19:39 Myelocytes # 0.0 K/mm3 04/02/22 19:39 Promyelocytes # 0.0 K/mm3 04/02/22 19:39 Blast Cells # 0.0 K/mm3 04/02/22 19:39 WBC Morphology Not Reportable 04/02/22 19:39 Hypersegmented Neuts Not Reportable 04/02/22 19:39 Hyposegmented Neuts Not Reportable 04/02/22 19:39 Hypogranular Neuts Not Reportable 04/02/22 19:39 Smudge Cells Not Reportable 04/02/22 19:39 Toxic Granulation Not Reportable 04/02/22 19:39 Toxic Vacuolation Not Reportable 04/02/22 19:39 Dohle Bodies Not Reportable 04/02/22 19:39 Pelger-Huet Anomaly Not Reportable 04/02/22 19:39 Terry Rods Not Reportable 04/02/22 19:39 Platelet Estimate Consistent w auto 04/02/22 19:39 Clumped Platelets Not Reportable 04/02/22 19:39 Plt Clumps, EDTA Not Reportable 04/02/22 19:39 Large Platelets Not Reportable 04/02/22 19:39 Giant Platelets Not Reportable 04/02/22 19:39 Platelet Satelliting Not Reportable 04/02/22 19:39 Plt Morphology Comment Not Reportable 04/02/22 19:39 RBC Morphology Not Reportable 04/02/22 19:39 Dimorphic RBCs Not Reportable 04/02/22 19:39 Polychromasia Not Reportable 04/02/22 19:39 Hypochromasia Not Reportable 04/02/22 19:39 Poikilocytosis Not Reportable 04/02/22 19:39 Anisocytosis 1+ 04/02/22 19:39 Microcytosis Not Reportable 04/02/22 19:39 Macrocytosis Not Reportable 04/02/22 19:39 Spherocytes Not Reportable 04/02/22 19:39 Pappenheimer Bodies Not Reportable 04/02/22 19:39 Sickle Cells Not Reportable 04/02/22 19:39 Target Cells Not Reportable 04/02/22 19:39 Tear Drop Cells Not Reportable 04/02/22 19:39 Ovalocytes Not Reportable 04/02/22 19:39 Helmet Cells Not Reportable 04/02/22 19:39 Patricio-Buckner Bodies Not Reportable 04/02/22 19:39 [place] Rings Not Reportable 04/02/22 19:39 Cheikh Cells Not Reportable 04/02/22 19:39 Bite Cells Not Reportable 04/02/22 19:39 Crenated Cell Not Reportable 04/02/22 19:39 Elliptocytes Not Reportable 04/02/22 19:39 Acanthocytes (Spur) Not Reportable 04/02/22 19:39 Rouleaux Not Reportable 04/02/22 19:39 Hemoglobin C Crystals Not Reportable 04/02/22 19:39 Schistocytes Not Reportable 04/02/22 19:39 Malaria parasites Not Reportable 04/02/22 19:39 [place] Bodies Not Reportable 04/02/22 19:39 Hem Pathologist Commnt No 04/02/22 19:39 PT 15.2 Sec. (12.2-14.9) H 04/07/22 03:51 INR 1.08 (0.87-1.13) 04/07/22 03:51 APTT 35.7 Sec. (24.2-36.6) 04/07/22 03:51 ABG pH 7.413 pH Units (7.350-7.450) 04/07/22 04:25 ABG pCO2 50.5 mm Hg 04/07/22 04:25 ABG pO2 71.0 mm Hg (80.0-90.0) L 04/07/22 04:25 ABG HCO3 31.5 mmol/L (20.0-26.0) H 04/07/22 04:25 ABG O2 Saturation 97.2 % (95.0-99.0) 04/07/22 04:25 ABG O2 Content 15.3 (0.0-44) 04/07/22 04:25 ABG Base Excess 5.9 mmol/L (-2.0-3.0) H 04/07/22 04:25 ABG Hemoglobin 11.3 gm/dl (14.0-18.0) L 04/07/22 04:25 ABG Carboxyhemoglobin 1.0 % (0.0-5.0) 04/07/22 04:25 ABG Methemoglobin 0.3 % (0.0-1.5) 04/07/22 04:25 Oxyhemoglobin 95.8 % (95.0-99.0) 04/07/22 04:25 FiO2 35 % 04/07/22 04:25 Sodium 136 mmol/L (137-145) L 04/08/22 04:49 Potassium 4.3 mmol/L (3.6-5.0) 04/08/22 04:49 Chloride 97.7 mmol/L (98-107) L 04/08/22 04:49 Carbon Dioxide 33 mmol/L (22-30) H 04/08/22 04:49 Anion Gap 10 mmol/L 04/08/22 04:49 BUN 9 mg/dL (9-20) 04/08/22 04:49 Creatinine 0.2 mg/dL (0.8-1.3) L 04/08/22 04:49 Estimated GFR > 60 ml/min 04/08/22 04:49 BUN/Creatinine Ratio 45 % 04/08/22 04:49 Glucose 155 mg/dL (75-100) H 04/08/22 04:49 POC Glucose 96 mg/dL (70-105) 04/07/22 16:12 Lactic Acid 1.90 mmol/L (0.7-2.0) 04/02/22 19:39 Calcium 8.4 mg/dL (8.4-10.2) 04/08/22 04:49 Phosphorus 3.50 mg/dL (2.5-4.5) D 04/05/22 02:50 Magnesium 2.00 mg/dL (1.7-2.3) 04/05/22 02:50 Total Bilirubin 0.80 mg/dL (0.1-1.2) 04/02/22 19:39 AST 15 units/L (5-40) 04/02/22 19:39 ALT 9 units/L (7-56) 04/02/22 19:39 Alkaline Phosphatase 43 units/L (35-129) 04/02/22 19:39 Troponin T 0.048 ng/mL (0.00-0.029) H 04/02/22 19:39 C-Reactive Protein 31.60 mg/dL (0.00-1.30) H 04/04/22 04:18 Total Protein 4.6 g/dL (6.3-8.2) L 04/02/22 19:39 Albumin 2.7 g/dL (3.9-5) L 04/02/22 19:39 Albumin/Globulin Ratio 1.4 % 04/02/22 19:39 Triglycerides 80 mg/dL (2-149) 04/02/22 19:39 Cholesterol 94 mg/dL (50-199) 04/02/22 19:39 LDL Cholesterol Direct 27 mg/dL (50-130) L 04/02/22 19:39 HDL Cholesterol 47 mg/dL (40-59) 04/02/22 19:39 Cholesterol/HDL Ratio 2.00 % 04/02/22 19:39 Procalcitonin 0.08 ng/mL (<0.15) 04/04/22 04:18 Urine Color Aracely (Yellow) 04/05/22 17:45 Urine Turbidity Cloudy (Clear) 04/05/22 17:45 Urine pH 5.0 (5.0-7.0) 04/05/22 17:45 Ur Specific [place] 1.021 (1.003-1.030) 04/05/22 17:45 Urine Protein 30 mg/dl mg/dL (Negative) 04/05/22 17:45 Urine Glucose (UA) Neg mg/dL (Negative) 04/05/22 17:45 Urine Ketones Tr mg/dL (Negative) 04/05/22 17:45 Urine Blood Sm (Negative) 04/05/22 17:45 Urine Nitrite Neg (Negative) 04/05/22 17:45 Urine Bilirubin Neg (Negative) 04/05/22 17:45 Urine Urobilinogen < 2.0 mg/dL (<2.0) 04/05/22 17:45 Ur Leukocyte Esterase Tr (Negative) 04/05/22 17:45 Urine WBC (Auto) 8.0 /HPF (0.0-6.0) H 04/05/22 17:45 Urine RBC (Auto) 3.0 /HPF (0.0-6.0) 04/05/22 17:45 U Epithel Cells (Auto) 2.0 /HPF (0-13.0) 04/05/22 17:45 Urine Bacteria (Auto) 1+ /HPF (Negative) 04/02/22 Unknown Hyaline Casts 1 /LPF 04/05/22 17:45 Urine Mucus 3+ /HPF 04/05/22 17:45 Nasal Screen MRSA (PCR) Negative (Negative) 04/05/22 12:37 Vancomycin Trough 6.0 ug/mL (5.0-20.0) 04/05/22 18:53 Microbiology: Microbiology 04/02/22 19:39 Peripheral/Venous Blood Culture - Final NO GROWTH AFTER 5 DAYS 04/05/22 18:53 Peripheral/Venous Blood Culture - Preliminary NO GROWTH AFTER 48 HOURS 04/05/22 18:53 Peripheral/Venous Blood Culture - Preliminary NO GROWTH AFTER 48 HOURS Perez/IV: Voiding Method Indwelling Catheter Active Medications - Current Medications Current Medications: Generic Name Dose Route Start Last Admin Trade Name Freq PRN Reason Stop Dose Admin Acetaminophen 650 mg 04/02/22 23:53 04/06/22 20:00 Acetaminophen 325 Mg Tab PO 650 mg Q6H PRN Administration Pain MILD(1-3)/Fever >100.5/FAITH Acetylcysteine 200 mg 04/06/22 11:45 04/07/22 23:29 Acetylcysteine 20% 200 Mg/1 Ml *For Inhalation Use* INHALATION 04/09/22 00:01 200 mg Q8HRT SEGUNDO Administration Albuterol 2.5 mg 04/06/22 16:00 04/07/22 23:29 Albuterol 2.5 Mg/3 Ml Nebu IH 2.5 mg Q8HRT SEGUNDO Administration Bisacodyl 10 mg 04/07/22 09:44 Bisacodyl 10 Mg Rect Supp NC QDAY PRN Constipation Carvedilol 3.125 mg 04/06/22 22:00 04/07/22 22:56 Carvedilol 3.125 Mg Tab PO Not Given BID SEGUNDO Dextrose 50 ml 04/06/22 17:54 Dextrose 50% In Water (25gm) 50 Ml Syringe IV Q30MIN PRN Hypoglycemia Protocol Docusate Sodium 100 mg 04/03/22 15:00 04/07/22 22:56 Docusate Sodium 100 Mg/10 Ml Oral Liqd PO 100 mg BID SEGUNDO Administration Famotidine 20 mg 04/06/22 10:00 04/07/22 22:56 Famotidine 20 Mg Tab FEEDTUBE 20 mg BID SEGUNDO Administration Fentanyl 50 mcg 04/04/22 15:56 04/07/22 20:59 Fentanyl 100 Mcg/2 Ml Inj IV 50 mcg Q2HR PRN Administration For CPOT of greater than 2 Heparin Sodium (Porcine) 5,000 unit 04/03/22 06:00 04/08/22 06:30 Heparin 5,000 Unit/1 Ml Vial SUB-Q 5,000 unit Q8HR SEGUNDO Administration NORepinephrine/NS 8 MG-250 ML 8 mg in 250 mls @ 3.75 mls/hr 04/02/22 22:00 0 04/08/22 04:58 Norepinephrine/Ns 8 Mg-250 Ml (Double Conc) IV 12 mcg/min TITRATE SEGUNDO 22.5 mls/hr Administration Protocol 2 MCG/MIN Dexmedetomidine HCl 400 mcg/ 104 mls @ 2.434 mls/hr 04/03/22 07:00 04/08/22 07:29 Sodium Chloride IV 1 mcg/kg/hr TITRATE SEGUNDO 12.168 mls/hr Titration Protocol 0.2 MCG/KG/HR Cefepime HCl 2 gm in 100 mls @ 200 mls/hr 04/03/22 18:00 04/08/22 06:30 Cefepime/Ns 2 Gm/100 Ml IV 200 mls/hr Q12H SEGUNDO Administration Protocol Fentanyl Citrate 2,000 mcg in 100 mls @ 2.34 mls/hr 04/05/22 11:00 04/08/22 05:12 Fentanyl Drip Premix IV 4 mcg/kg/hr TITR SEGUNDO 9.36 mls/hr Administration Protocol 1 MCG/KG/HR Insulin Human Regular 0 units 04/06/22 18:00 04/08/22 06:33 Insulin Regular, Human 100 Units/1 Ml SUB-Q Not Given Q6H [facility] Protocol Lisinopril 5 mg 04/07/22 10:00 04/07/22 09:04 Lisinopril 5 Mg Tab PO Not Given QDAY [facility] Magnesium Hydroxide 30 ml 04/02/22 23:53 Magnesium Hydroxide (Mom) Oral Liqd Udc PO Q4H PRN Constipation Ondansetron HCl 4 mg 04/02/22 23:53 Ondansetron 4 Mg/2 Ml Inj IV Q8H PRN Nausea And Vomiting Polyethylene Glycol 17 gm 04/08/22 10:00 Polyethylene Glycol 3350 17 Gm Powder PO QDAY [facility] Senna 17.6 mg 04/03/22 22:00 04/07/22 22:56 Sennosides Oral Liqd 8.8 Mg/5 Ml Oral Liqd PO 17.6 mg Q12HR SEGUNDO Administration Sodium Chloride 10 ml 04/03/22 10:00 04/07/22 22:56 Sodium Chloride 0.9% 10 Ml Flush Syringe IV 10 ml BID SEGUNDO Administration Sodium Chloride 10 ml 04/02/22 23:53 Sodium Chloride 0.9% 10 Ml Flush Syringe IV PRN PRN LINE FLUSH Nutrition/Malnutrition Assess - Dietary Evaluation Nutrition/Malnutrition Findings: Nutrition Notes Start: 04/04/22 13:13 Freq: Status: Active Protocol: Document 04/06/22 12:38 COLLEEN (Rec: 04/06/22 13:23 COLLEEN [id number]) Nutrition Notes Initial or Follow up Reassessment Current Diagnosis Sepsis,Respiratory Failure, Malnutrition Other Pertinent Diagnosis HAP, HFpEF, Elevated Troponin, ALS, Hypokalemia, Hypotension , ... Current Diet TF-Vital AF 1.2 Inderjit @ 50 ml/hr (since D 04/06) Labs/Tests 04/06: K 3.0, Crea <0.2, Glu 130, Ca 8.1. Pertinent Medications 04/06: KCl 40mEq, others nutritionally unremarkable. Height 5 ft 4.8 in Weight 46.8 kg Green Body Weight (kg) 61.27 BMI 17.2 Intake Prior to Admission Poor Weight change and time frame No body weight change reported in 2 days. Weight Status Underweight Subjective/Other Information RD consult for routine F/U on TF tolerance/ continuation, and Low BMI assessment. Pt continues TF as prescribed, well tolerated, according to RN. Pt is on Mechanical ventilation, O2 saturation @ 96%, according to Physical Assessment Histroy notes. Pt presents constipation, according to Physical Assessment Histroy notes. Pt is swallow and Chewing impaired, according to Physical Assessment Histroy notes. Pt is alert and oriented, but continues on Mechanical Ventilation, according to Progress notes. Pt's Low BMI seems to correspond to a natural body composition, and not related to a sudden loss of body weight nor chronic malnutrition, since no signs of concern were mentioned in the Physical Assessment History or the Progress notes. Percent of energy/protein needs met: Prescribed TF-Vital AF 1.2 Inderjit @ 50 ml/hr provides for energy/protein needs (1,450 Kcal/91 g) during LOS, 98% Kcal; 100% AA. Burn Absent Trauma Absent GI Symptoms Constipation Difficulty In Swallowing,Chewing Food Allergy No Skin Integrity/Comment Unspecified Area of Concern. Current % PO Other Minimum of two criteria No #1 Nutrition Diagnosis Swallowing difficulty,Biting/ Chewing (masticatory) difficulty Comments: Change Nutrition Diagnostic for precision. Etiology ALS, Mechanical Ventilation. As Evidenced by Signs and Symptoms Pt currently on TF. Is patient on ventilator? Yes Is Patient Ambulatory and/or Out of Bed No REE-([facility]-confined to bed) [phone] Calculation Used for Recommendations [facility] Additional Notes Protein: 1.2-2 g/Kg IBW; 73- 122 g/day. Fluids: 1 ml/Kcal, or as per MD. Nutrition Intervention Nutrition Support: Continue TF-Vital AF 1.2 Inderjit @ 50 ml/hr. Flush: 80 ml water Q 4 hr, or as per MD. Kcal 1,450 Protein (gm) 91 Carbohydrates (gm) 134 Fat (gm) 65 Fluid (mL) 980 Fiber (gm) 6 % RDI: 98% Kcal; 100% AA. Goal #1 Provide at least 75% of energy /protein needs through Enteral Feeding during LOS. Goal #2 Maintain body weight within +/ -3% of admission body weight during LOS. Follow-Up By: 04/13/22 Additional Comments Continue monitoring TF tolerance and BM.
--- NOTE | 2022-04-07 18:40 | Progress Note ---
Assessment and Plan Cultures: Blood culture no growth so far Sputum culture negative renal A/P: 57-year-old man past medical history ALS now with: #Acute sepsis: With fevers and leukocytosis. Secondary to pneumonia. #Acute hypoxic respiratory failure: Currently on the vent. #Hospital-acquired pneumonia. Was recently seen at [facility], was initial ly discharged to home hospice, as such was not given antibiotics. #ALS: Was on home hospice. #Bacillus bacteremia: likely contaminant. Recs: -Goals of care, poor prognosis. -Sputum cultures with gram-negative rods; continue cefepime, -Follow-up cultures Thank you for the consult, we will continue to follow. Sameer Ojeda MD [facility] O: [phone] F: [phone] Subjective Date of service: 04/07/22 Principal diagnosis: Ac and ch hypercapnic and hypoxemic Resp Failure; ALS; HCAP; Sepsis; NSTEMI Interval history: Afebrile overnight, white count increased today. Objective - Exam Narrative Exam: Physical Exam: Constitutional: Intubated, sedated Head, Ears, Nose: Normocephalic, atraumatic. External ears, nose normal Eyes: Conjunctivae/corneas clear. No icterus. No ptosis. Neck: Supple, no meningeal signs Oral: Intubated Cardiovascular: S1, S2 normal. Respiratory: Good air entry, clear to auscultation bilaterally GI: Soft, non-tender; bowel sounds normal. No peritoneal signs. Musculoskeletal: No pedal edema, no cyanosis. Skin: No rash or abscess Hem/Lymphatic: No palpable cervical or supraclavicular nodes. No lymphangitis Psych: Mood ok. Affect normal Neurological: Sedated - Constitutional Vitals: Vital Signs Temp Pulse Resp BP Pulse Ox 99.4 F 97 H 15 104/61 97 04/07/22 16:00 04/07/22 18:00 04/07/22 18:00 04/07/22 18:00 04/07/22 18:00 Temperature -Last 24 Hours Temperature 99.4 F Temperature 98.9 F Temperature 98.1 F Temperature 98.6 F Temperature 99.6 F Temperature 98.1 F Temperature 101.6 F - Labs CBC & Chem 7: 04/07/22 03:51 04/07/22 03:51 Labs: Abnormal lab results 04/07/22 04/07/22 04/07/22 Range/Units 00:04 03:51 03:51 WBC 14.6 H (4.5-11.0) K/mm3 RBC 3.57 L (3.65-5.03) M/mm3 Hgb 11.1 L (11.8-15.2) gm/dl Hct 33.2 L (35.5-45.6) % Plt Count 118 L (140-440) K/mm3 Lymph % (Auto) 4.3 L (13.4-35.0) % Hale % (Auto) 8.8 H (0.0-7.3) % Lymph # (Auto) 0.6 L (1.2-5.4) K/mm3 Hale # (Auto) 1.3 H (0.0-0.8) K/mm3 Seg Neutrophils % 86.6 H (40.0-70.0) % Seg Neutrophils # 12.7 H (1.8-7.7) K/mm3 PT 15.2 H (12.2-14.9) Sec. ABG pO2 (80.0-90.0) mm Hg ABG HCO3 (20.0-26.0) mmol/L ABG Base Excess (-2.0-3.0) mmol/L ABG Hemoglobin (14.0-18.0) gm/dl Sodium (137-145) mmol/L Chloride (98-107) mmol/L Carbon Dioxide (22-30) mmol/L Creatinine (0.8-1.3) mg/dL Glucose (75-100) mg/dL POC Glucose 117 H (70-105) mg/dL Calcium (8.4-10.2) mg/dL 04/07/22 04/07/22 Range/Units 03:51 04:25 WBC (4.5-11.0) K/mm3 RBC (3.65-5.03) M/mm3 Hgb (11.8-15.2) gm/dl Hct (35.5-45.6) % Plt Count (140-440) K/mm3 Lymph % (Auto) (13.4-35.0) % Hale % (Auto) (0.0-7.3) % Lymph # (Auto) (1.2-5.4) K/mm3 Hale # (Auto) (0.0-0.8) K/mm3 Seg Neutrophils % (40.0-70.0) % Seg Neutrophils # (1.8-7.7) K/mm3 PT (12.2-14.9) Sec. ABG pO2 71.0 L (80.0-90.0) mm Hg ABG HCO3 31.5 H (20.0-26.0) mmol/L ABG Base Excess 5.9 H (-2.0-3.0) mmol/L ABG Hemoglobin 11.3 L (14.0-18.0) gm/dl Sodium 133 L (137-145) mmol/L Chloride 96.0 L (98-107) mmol/L Carbon Dioxide 31 H (22-30) mmol/L Creatinine 0.2 L (0.8-1.3) mg/dL Glucose 130 H (75-100) mg/dL POC Glucose (70-105) mg/dL Calcium 8.0 L (8.4-10.2) mg/dL
[2022-04-07] MEDS: fentaNYL 100 MCG/2 ML INJ IV PRN (20:59)
[2022-04-08] MEDS: INSULIN REGULAR, HUMAN 100 UNITS/1 ML SUB-Q SCH ×4 (02:05→18:11)
[2022-04-08] MEDS: NORepinephrine/NS 8 MG-250 ML 8 MG/250 ML INFUS..BTL IV SCH ×2 (04:58→13:50)
[2022-04-08] MEDS: fentaNYL DRIP Premix 2,000 MCG/100 ML BAG IV SCH ×3 (05:12→22:33)
[2022-04-08 05:28] LABS: Hematocrit 33.3 % (35.5-45.6); Hemoglobin 10.9 gm/dl (11.8-15.2); Mean Corpuscular HGB Conc 33 % (32-34); Mean Corpuscular Volume 94 fl (84-94); Platelet Count 162 K/mm3 (140-440); Red Blood Count 3.54 M/mm3 (3.65-5.03); Red Cell Distribution Width 13.7 % (13.2-15.2)
[2022-04-08 05:44] LABS: Blood Urea Nitrogen 9 mg/dL (9-20); Calcium 8.4 mg/dL (8.4-10.2); Hemolysis Index 7
[2022-04-08 05:45] LABS: BUN/Creatinine Ratio 45
[2022-04-08] MEDS: HEPARIN 5,000 UNIT/1 ML VIAL SUB-Q SCH ×3 (06:30→22:35)
[2022-04-08] MEDS: CEFEPIME/NS 2 GM/100 ML 2 GM/100 ML BAG IV SCH ×2 (06:30→17:41)
[2022-04-08] MEDS: ACETYLCYSTEINE 20% 200 MG/1 ML *FOR INHALATION USE INHALATION SCH ×2 (08:25→16:50)
[2022-04-08] MEDS: ALBUTEROL 2.5 MG/3 ML NEBU IH SCH ×2 (08:25→16:50)
--- NOTE | 2022-04-08 09:28 | Progress Note ---
Assessment and Plan - Patient Problems (1) Elevated troponin Current Visit: Yes Status: Acute (2) History of amyotrophic lateral sclerosis Current Visit: No Status: Acute Subjective Date of service: 04/08/22 Principal diagnosis: Ac and ch hypercapnic and hypoxemic Resp Failure; ALS; HCAP; Sepsis; NSTEMI Interval history: ALERT,,,VENT Objective Vital Signs Temp Pulse Pulse Pulse Resp Resp BP 04/08/22 09:00 63 14 108/71 04/08/22 08:50 61 14 106/68 04/08/22 08:40 64 14 113/68 04/08/22 08:30 62 14 113/68 04/08/22 08:25 69 14 04/08/22 08:20 77 14 120/73 04/08/22 08:15 69 120/73 04/08/22 08:10 70 14 116/74 04/08/22 08:00 76 76 15 116/74 04/08/22 07:59 99.9 F H 04/08/22 07:50 75 15 128/80 04/08/22 07:40 81 16 109/82 04/08/22 07:30 90 18 109/82 04/08/22 07:20 90 17 107/83 04/08/22 07:10 85 15 117/72 04/08/22 07:00 83 15 117/72 04/08/22 06:50 85 16 107/66 04/08/22 06:40 68 14 101/63 04/08/22 06:30 69 14 101/63 04/08/22 06:20 73 14 104/64 04/08/22 06:10 63 14 105/64 04/08/22 06:00 64 14 105/64 04/08/22 05:50 67 13 104/65 04/08/22 05:40 64 14 107/66 04/08/22 05:30 65 14 107/66 04/08/22 05:20 66 14 107/67 04/08/22 05:10 66 14 108/66 04/08/22 05:00 69 14 108/66 04/08/22 04:50 64 14 98/60 04/08/22 04:40 64 14 99/61 04/08/22 04:30 63 14 99/61 04/08/22 04:20 64 14 111/73 04/08/22 04:10 76 14 102/61 06/02 04:00 99.1 F 63 83 14 102/61 06/02/22 03:50 63 14 103/63 06/02 03:40 79 17 101/59 06/02/22 03:30 65 14 101/59 06/0222 03:20 66 14 108/68 06/02 03:10 65 14 102/61 06/02 03:00 65 14 102/61 06/0222 02:50 76 14 103/62 06/0222 02:40 65 14 112/73 04/08/22 02:30 74 14 112/73 06 02:20 72 14 107/67 04/08/22 02:10 75 14 112/70 04/08/22 02:00 84 12 112/70 04/08/22 01:50 94 H 15 104/63 04/08/22 01:40 90 14 114/69 0602 01:30 89 16 114/69 04/08/22 01:20 100 H 14 111/68 04/08/22 01:10 84 12 101/63 04/08/22 01:00 70 14 101/63 04/08/22 00:50 68 14 104/63 04/08/22 00:40 71 14 105/65 02 00:30 70 14 105/65 02 00:20 65 14 105/63 04/08/22 00:10 65 14 106/65 02 00:00 97.6 F 66 83 14 106/65 06 23:50 69 14 105/63 06 23:40 68 14 112/71 04/07/22 23:31 73 15 06 23:30 80 15 112/71 04/07/22 23:29 81 112/71 06 23:20 74 14 111/67 04/07/22 23:10 64 14 96/57 06/11/28 23:00 64 14 96/57 04/07/22 22:56 65 95/58 06//22 22:50 64 14 95/58 06//22 22:40 67 14 95/56 06//22 22:30 65 14 95/56 06//22 22:20 66 14 98/58 04/07/22 22:10 66 14 95/56 04/07/22 22:00 66 14 95/56 04/07/22 21:50 66 14 101/59 04/07/22 21:40 65 14 97/57 04/07/22 21:30 66 14 97/57 04/07/22 21:20 68 14 97/58 04/07/22 21:10 65 14 107/66 04/07/22 21:00 64 14 97/56 04/07/22 20:59 20 04/07/22 20:50 62 14 107/66 04/07/22 20:40 73 14 99/60 04/07/22 20:30 64 14 99/60 04/07/22 20:20 72 12 101/62 04/07/22 20:10 67 14 98/59 04/07/22 20:00 98.4 F 64 83 14 98/59 04/07/22 19:50 65 14 107/64 04/07/22 19:44 65 107/64 04/07/22 19:40 69 14 102/57 04/07/22 19:30 64 14 102/57 04/07/22 19:20 76 14 101/59 04/07/22 19:10 66 14 112/67 04/07/22 19:00 76 13 112/67 04/07/22 18:50 78 13 102/62 04/07/22 18:40 67 14 100/60 04/07/22 18:30 101 H 15 100/60 04/07/22 18:20 93 H 13 100/60 04/07/22 18:10 70 14 104/61 04/07/22 18:00 97 H 15 104/61 04/07/22 17:50 79 15 94/61 04/07/22 17:40 76 14 101/62 04/07/22 17:30 75 13 85/58 04/07/22 17:20 75 14 101/62 04/07/22 17:10 71 14 104/59 04/07/22 17:00 70 14 96/55 04/07/22 16:50 72 14 04/07/22 16:40 68 14 98/56 04/07/22 16:30 69 14 98/56 04/07/22 16:21 65 14 97/59 06/01/22 16:11 67 14 96/58 04/07/22 16:00 99.4 F 67 14 96/58 04/07/22 15:51 68 83 14 94/57 04/07/22 15:50 72 04/07/22 15:41 72 14 112/71 04/07/22 15:30 79 15 112/71 04/07/22 15:29 77 112/71 04/07/22 15:21 78 14 111/67 04/07/22 15:11 79 16 104/65 04/07/22 15:00 81 13 104/65 04/07/22 14:51 85 15 99/64 04/07/22 14:41 85 16 110/72 04/07/22 14:30 95 H 15 110/72 04/07/22 14:21 97 H 16 114/78 04/07/22 14:11 94 H 17 104/68 04/07/22 14:00 87 18 104/68 04/07/22 13:51 82 18 106/70 04/07/22 13:41 68 14 98/63 04/07/22 13:30 65 14 98/63 04/07/22 13:21 67 14 94/62 04/07/22 13:11 65 14 97/62 04/07/22 13:00 66 14 97/62 04/07/22 12:51 68 14 88/56 04/07/22 12:41 68 14 84/51 04/07/22 12:30 67 14 84/51 04/07/22 12:21 70 14 84/54 04/07/22 12:11 72 14 83/48 04/07/22 12:00 73 14 83/48 04/07/22 11:51 73 14 81/46 04/07/22 11:41 80 14 95/57 04/07/22 11:32 98.9 F 83 83 16 04/07/22 11:30 75 14 95/57 04/07/22 11:21 78 15 108/60 04/07/22 11:11 80 16 108/60 04/07/22 11:09 80 108/60 04/07/22 11:00 75 14 108/60 04/07/22 10:51 89 18 108/69 04/07/22 10:41 84 15 111/72 04/07/22 10:30 97 H 18 111/72 04/07/22 10:21 94 H 14 113/67 04/07/22 10:11 93 H 17 100/64 04/07/22 10:01 78 16 100/64 04/07/22 09:51 74 14 78/46 04/07/22 09:41 74 14 97/63 04/07/22 09:30 90 17 97/63 Pulse Ox 04/08/22 09:00 100 04/08/22 08:50 100 04/08/22 08:40 100 04/08/22 08:30 100 04/08/22 08:25 04/08/22 08:20 100 04/08/22 08:15 100 04/08/22 08:10 100 04/08/22 08:00 100 04/08/22 07:59 04/08/22 07:50 99 04/08/22 07:40 100 04/08/22 07:30 100 04/08/22 07:20 100 04/08/22 07:10 100 04/08/22 07:00 100 04/08/22 06:50 99 04/08/22 06:40 100 04/08/22 06:30 100 04/08/22 06:20 100 04/08/22 06:10 100 04/08/22 06:00 100 04/08/22 05:50 100 04/08/22 05:40 100 04/08/22 05:30 100 04/08/22 05:20 100 04/08/22 05:10 100 04/08/22 05:00 100 04/08/22 04:50 100 04/08/22 04:40 100 04/08/22 04:30 100 04/08/22 04:20 100 04/08/22 04:10 100 04/08/22 04:00 100 04/08/22 03:50 100 04/08/22 03:40 100 04/08/22 03:30 100 04/08/22 03:20 100 04/08/22 03:10 100 04/08/22 03:00 100 04/08/22 02:50 100 04/08/22 02:40 100 04/08/22 02:30 100 04/08/22 02:20 100 04/08/22 02:10 100 04/08/22 02:00 100 04/08/22 01:50 99 04/08/22 01:40 100 04/08/22 01:30 100 04/08/22 01:20 100 04/08/22 01:10 100 04/08/22 01:00 100 04/08/22 00:50 100 04/08/22 00:40 100 04/08/22 00:30 100 04/08/22 00:20 100 04/08/22 00:10 100 04/08/22 00:00 98 04/07/22 23:50 97 04/07/22 23:40 98 04/07/22 23:31 04/07/22 23:30 100 04/07/22 23:29 100 04/07/22 23:20 100 04/07/22 23:10 99 04/07/22 23:00 99 04/07/22 22:56 04/07/22 22:50 98 04/07/22 22:40 99 04/07/22 22:30 98 04/07/22 22:20 98 04/07/22 22:10 98 04/07/22 22:00 98 04/07/22 21:50 98 04/07/22 21:40 99 04/07/22 21:30 99 04/07/22 21:20 99 04/07/22 21:10 98 04/07/22 21:00 99 04/07/22 20:59 04/07/22 20:50 99 04/07/22 20:40 100 04/07/22 20:30 100 04/07/22 20:20 100 04/07/22 20:10 100 04/07/22 20:00 100 04/07/22 19:50 99 04/07/22 19:44 99 04/07/22 19:40 99 04/07/22 19:30 99 04/07/22 19:20 99 04/07/22 19:10 99 04/07/22 19:00 99 04/07/22 18:50 98 04/07/22 18:40 98 04/07/22 18:30 98 04/07/22 18:20 98 04/07/22 18:10 98 04/07/22 18:00 97 04/07/22 17:50 98 04/07/22 17:40 97 04/07/22 17:30 99 04/07/22 17:20 99 04/07/22 17:10 99 04/07/22 17:00 97 04/07/22 16:50 96 04/07/22 16:40 98 04/07/22 16:30 97 04/07/22 16:21 100 04/07/22 16:11 100 04/07/22 16:00 100 04/07/22 15:51 97 04/07/22 15:50 04/07/22 15:41 98 04/07/22 15:30 98 04/07/22 15:29 100 04/07/22 15:21 99 04/07/22 15:11 98 04/07/22 15:00 98 04/07/22 14:51 98 04/07/22 14:41 97 04/07/22 14:30 97 04/07/22 14:21 97 04/07/22 14:11 92 04/07/22 14:00 93 04/07/22 13:51 88 04/07/22 13:41 100 04/07/22 13:30 100 04/07/22 13:21 100 04/07/22 13:11 100 04/07/22 13:00 100 04/07/22 12:51 100 04/07/22 12:41 99 04/07/22 12:30 98 04/07/22 12:21 98 04/07/22 12:11 97 04/07/22 12:00 96 04/07/22 11:51 96 04/07/22 11:41 97 04/07/22 11:32 94 04/07/22 11:30 98 04/07/22 11:21 99 04/07/22 11:11 97 04/07/22 11:09 97 04/07/22 11:00 98 04/07/22 10:51 97 04/07/22 10:41 98 04/07/22 10:30 98 04/07/22 10:21 96 04/07/22 10:11 97 04/07/22 10:01 95 04/07/22 09:51 95 04/07/22 09:41 94 04/07/22 09:30 96 - Physical Examination General: Other (Intubated on mechanical ventilator) HEENT: Positive: PERRL, Normocephaly, Other (ET-tube in place) Neck: Positive: neck supple, trachea midline (intubated). Negative: JVD/HJR Cardiac: Positive: Reg Rate and Rhythm Lungs: Positive: Decreased Breath Sounds Neuro: Positive: Other (As per Neurologist and Hospitalist note) Abdomen: Positive: Soft Extremities: Present: Other (TR.EDEMA). Absent: edema - Labs and Meds CBC 04/08/22 Range/Units 04:49 WBC 16.1 H (4.5-11.0) K/mm3 RBC 3.54 L (3.65-5.03) M/mm3 Hgb 10.9 L (11.8-15.2) gm/dl Hct 33.3 L (35.5-45.6) % Plt Count 162 (140-440) K/mm3 Comprehensive Metabolic Panel 04/08/22 Range/Units 04:49 Sodium 136 L (137-145) mmol/L Potassium 4.3 (3.6-5.0) mmol/L Chloride 97.7 L (98-107) mmol/L Carbon Dioxide 33 H (22-30) mmol/L BUN 9 (9-20) mg/dL Creatinine 0.2 L (0.8-1.3) mg/dL Glucose 155 H (75-100) mg/dL Calcium 8.4 (8.4-10.2) mg/dL - Allied health notes Allied health notes reviewed: RT
[2022-04-08] MEDS: POLYETHYLENE GLYCOL 3350 17 GM POWDER PO SCH (09:33)
[2022-04-08] MEDS: DOCUSATE SODIUM 100 MG/10 ML ORAL LIQD PO SCH ×2 (09:33→22:35)
[2022-04-08] MEDS: ACETAMINOPHEN 325 MG TAB PO PRN (09:33)
[2022-04-08] MEDS: FAMOTIDINE 20 MG TAB FEEDTUBE SCH ×2 (09:33→22:35)
[2022-04-08] MEDS: SENNOSIDES ORAL LIQD 8.8 MG/5 ML ORAL LIQD PO SCH ×2 (09:33→22:35)
[2022-04-08] MEDS: LISINOPRIL 5 MG TAB PO SCH (09:34)
[2022-04-08] MEDS: carvediloL 3.125 MG TAB PO SCH (09:34)
[2022-04-08 11:11] LABS: ABG Base Excess 7.9 mmol/L (-2.0-3.0); ABG HCO3 34.7 mmol/L (20.0-26.0); ABG Methemoglobin 0.4 % (0.0-1.5); ABG Oxygen Saturation 96.6 % (95.0-99.0); ABG PCO2 60.1 mm Hg; ABG PH 7.379 pH Units (7.350-7.450); ABG PO2 82.1 mm Hg (80.0-90.0)
--- NOTE | 2022-04-08 13:24 | Progress Note ---
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 Protein calorie malnutrition Acute Bronchopneumonia HCAP Hypotension NSTEMI Hypernatremia Acute Metabolic Encephalopathy H/o Amyotrophic Lateral Sclerosis Nonverbal at Baseline Thrombocytopenia Protein Caloric Malnutrition Constipation - repeat CXR in am - follow repeat troponin and serial EKG's - reduced set rate to 12/min - care plan explained to patient and son at bedside - follow COVID-19 PCR result - continue care as below otherwise; - Keeping PEEP at 8 to optimize alveolar recruitment in the setting of atelectasis while monitoring airway pressures - On going family discussions re goals of care - Daily SAT and SBT assessment as tolerated - continue to wean supplemental oxygen for target O2 sat's > 90% acutely - VAP bundle addressed - continue lung protective strategies - continue bronchodilators with pulmonary hygiene per RT - wean per pulmonary driven protocols otherwise - continue accuchecks with glycemic control per SSI (While critically ill target blood glucose of 140-180 mg/dL; avoid hypoglycemia) - sedation prn for target RASS 0 to -1 - avoid nephrotoxins, renally dose all medications - continue to avoid benzodiazepine's, reduce the possibility of delirium - AB's per ID rec's - prn analgesia per CPOT score - Maintenance of sleep-wake cycle, avoid delirium - continue enteral nutritional support at goal rate as tolerated - G.I. & VTE prophylaxis - PT/OT/ROM exercises - continue mobility protocols for pressure ulcer prophylaxis - Monitor hemodynamics closely - continue other care per attending / other consultants - discharge planning ongoing concurrently COVID SPECIFIC INTERVENTIONS - test pending .... Re-evaluate in am & prn CONDITION: CRITICAL PROGNOSIS: GUARDED CODE STATUS: FULL CODE The high probability of a clinically significant, sudden or life-threatening deterioration of the [respiratory, cardiovascular & neurologic] system(s) required my full and direct attention, intervention and personal management. The aggregate critical care time was [32] minutes without overlap. Time includes spent on; [x] Data Review and interpretation [x] Patient assessment and monitoring of vital signs [x] Documentation [x] Medication orders and management ` Subjective Date of service: 04/08/22 Principal diagnosis: Ac and ch hypercapnic and hypoxemic Resp Failure; ALS; HCAP; Sepsis; NSTEMI Interval history: Patient is seen today for: Acute and chronic hypercapnic and hypoxemic Respiratory Failure; ALS; HCAP; Sepsis; NSTEMI; AMS; Hypernatremia; Thrombocy topenia; Protein Caloric Malnutrition; Constipation Seen and examined at bedside; 24hour events reviewed; nursing and respiratory care staff consulted; no adverse overnight events reported to me; resting peacefully in bed; remains on MVS; 12 lead EKG showing ischemic changes; troponin being trended; seen by cardiology team; his son is visiting; denied acute chest pain at the time of my evaluation Objective Vital Signs - 12hr 04/08/22 04/08/22 04/08/22 01:30 01:40 01:50 Temperature Pulse Rate 89 90 94 H Pulse Rate [ Anterior Bilateral Throughout] Pulse Rate [ From Monitor] Respiratory 16 14 15 Rate Respiratory Rate [Anterior Bilateral Throughout] Blood Pressure 114/69 114/69 104/63 O2 Sat by Pulse 100 100 99 Oximetry 04/08/22 04/08/22 04/08/22 02:00 02:10 02:20 Temperature Pulse Rate 84 75 72 Pulse Rate [ Anterior Bilateral Throughout] Pulse Rate [ From Monitor] Respiratory 12 14 14 Rate Respiratory Rate [Anterior Bilateral Throughout] Blood Pressure 112/70 112/70 107/67 O2 Sat by Pulse 100 100 100 Oximetry 04/08/22 04/08/22 04/08/22 02:30 02:40 02:50 Temperature Pulse Rate 74 65 76 Pulse Rate [ Anterior Bilateral Throughout] Pulse Rate [ From Monitor] Respiratory 14 14 14 Rate Respiratory Rate [Anterior Bilateral Throughout] Blood Pressure 112/73 112/73 103/62 O2 Sat by Pulse 100 100 100 Oximetry 04/08/22 04/08/22 04/08/22 03:00 03:10 03:20 Temperature Pulse Rate 65 65 66 Pulse Rate [ Anterior Bilateral Throughout] Pulse Rate [ From Monitor] Respiratory 14 14 14 Rate Respiratory Rate [Anterior Bilateral Throughout] Blood Pressure 102/61 102/61 108/68 O2 Sat by Pulse 100 100 100 Oximetry 04/08/22 04/08/22 04/08/22 03:30 03:40 03:50 Temperature Pulse Rate 65 79 63 Pulse Rate [ Anterior Bilateral Throughout] Pulse Rate [ From Monitor] Respiratory 14 17 14 Rate Respiratory Rate [Anterior Bilateral Throughout] Blood Pressure 101/59 101/59 103/63 O2 Sat by Pulse 100 100 100 Oximetry 04/08/22 04/08/22 04/08/22 04:00 04:10 04:20 Temperature 99.1 F Pulse Rate 63 76 64 Pulse Rate [ Anterior Bilateral Throughout] Pulse Rate [ 83 From Monitor] Respiratory 14 14 14 Rate Respiratory Rate [Anterior Bilateral Throughout] Blood Pressure 102/61 102/61 111/73 O2 Sat by Pulse 100 100 100 Oximetry 04/08/22 04/08/22 04/08/22 04:30 04:40 04:50 Temperature Pulse Rate 63 64 64 Pulse Rate [ Anterior Bilateral Throughout] Pulse Rate [ From Monitor] Respiratory 14 14 14 Rate Respiratory Rate [Anterior Bilateral Throughout] Blood Pressure 99/61 99/61 98/60 O2 Sat by Pulse 100 100 100 Oximetry 04/08/22 04/08/22 04/08/22 05:00 05:10 05:20 Temperature Pulse Rate 69 66 66 Pulse Rate [ Anterior Bilateral Throughout] Pulse Rate [ From Monitor] Respiratory 14 14 14 Rate Respiratory Rate [Anterior Bilateral Throughout] Blood Pressure 108/66 108/66 107/67 O2 Sat by Pulse 100 100 100 Oximetry 04/08/22 04/08/22 04/08/22 05:30 05:40 05:50 Temperature Pulse Rate 65 64 67 Pulse Rate [ Anterior Bilateral Throughout] Pulse Rate [ From Monitor] Respiratory 14 14 13 Rate Respiratory Rate [Anterior Bilateral Throughout] Blood Pressure 107/66 107/66 104/65 O2 Sat by Pulse 100 100 100 Oximetry 04/08/22 04/08/22 04/08/22 06:00 06:10 06:20 Temperature Pulse Rate 64 63 73 Pulse Rate [ Anterior Bilateral Throughout] Pulse Rate [ From Monitor] Respiratory 14 14 14 Rate Respiratory Rate [Anterior Bilateral Throughout] Blood Pressure 105/64 105/64 104/64 O2 Sat by Pulse 100 100 100 Oximetry 04/08/22 04/08/22 04/08/22 06:30 06:40 06:50 Temperature Pulse Rate 69 68 85 Pulse Rate [ Anterior Bilateral Throughout] Pulse Rate [ From Monitor] Respiratory 14 14 16 Rate Respiratory Rate [Anterior Bilateral Throughout] Blood Pressure 101/63 101/63 107/66 O2 Sat by Pulse 100 100 99 Oximetry 04/08/22 04/08/22 04/08/22 07:00 07:10 07:20 Temperature Pulse Rate 83 85 90 Pulse Rate [ Anterior Bilateral Throughout] Pulse Rate [ From Monitor] Respiratory 15 15 17 Rate Respiratory Rate [Anterior Bilateral Throughout] Blood Pressure 117/72 117/72 107/83 O2 Sat by Pulse 100 100 100 Oximetry 04/08/22 04/08/22 04/08/22 07:30 07:40 07:50 Temperature Pulse Rate 90 81 75 Pulse Rate [ Anterior Bilateral Throughout] Pulse Rate [ From Monitor] Respiratory 18 16 15 Rate Respiratory Rate [Anterior Bilateral Throughout] Blood Pressure 109/82 109/82 128/80 O2 Sat by Pulse 100 100 99 Oximetry 04/08/22 04/08/22 04/08/22 07:59 08:00 08:10 Temperature 99.9 F H Pulse Rate 76 70 Pulse Rate [ Anterior Bilateral Throughout] Pulse Rate [ 76 From Monitor] Respiratory 15 14 Rate Respiratory Rate [Anterior Bilateral Throughout] Blood Pressure 116/74 116/74 O2 Sat by Pulse 100 100 Oximetry 04/08/22 04/08/22 04/08/22 08:15 08:20 08:25 Temperature Pulse Rate 69 77 Pulse Rate [ 63 Anterior Bilateral Throughout] Pulse Rate [ From Monitor] Respiratory 14 Rate Respiratory 14 Rate [Anterior Bilateral Throughout] Blood Pressure 120/73 120/73 O2 Sat by Pulse 100 100 Oximetry 04/08/22 04/08/22 04/08/22 08:30 08:40 08:50 Temperature Pulse Rate 62 64 61 Pulse Rate [ Anterior Bilateral Throughout] Pulse Rate [ From Monitor] Respiratory 14 14 14 Rate Respiratory Rate [Anterior Bilateral Throughout] Blood Pressure 113/68 113/68 106/68 O2 Sat by Pulse 100 100 100 Oximetry 04/08/22 04/08/22 04/08/22 09:00 09:10 09:20 Temperature Pulse Rate 63 65 64 Pulse Rate [ Anterior Bilateral Throughout] Pulse Rate [ From Monitor] Respiratory 14 14 14 Rate Respiratory Rate [Anterior Bilateral Throughout] Blood Pressure 108/71 108/71 104/63 O2 Sat by Pulse 100 100 100 Oximetry 04/08/22 04/08/22 04/08/22 09:30 09:40 09:50 Temperature Pulse Rate 63 63 70 Pulse Rate [ Anterior Bilateral Throughout] Pulse Rate [ From Monitor] Respiratory 14 14 16 Rate Respiratory Rate [Anterior Bilateral Throughout] Blood Pressure 104/66 104/66 102/65 O2 Sat by Pulse 100 100 100 Oximetry 04/08/22 04/08/22 04/08/22 10:00 10:10 10:20 Temperature Pulse Rate 61 59 L 62 Pulse Rate [ Anterior Bilateral Throughout] Pulse Rate [ From Monitor] Respiratory 14 14 14 Rate Respiratory Rate [Anterior Bilateral Throughout] Blood Pressure 104/64 104/64 98/60 O2 Sat by Pulse 100 100 100 Oximetry 04/08/22 04/08/22 04/08/22 10:30 10:40 10:50 Temperature Pulse Rate 62 59 L 61 Pulse Rate [ Anterior Bilateral Throughout] Pulse Rate [ From Monitor] Respiratory 14 14 14 Rate Respiratory Rate [Anterior Bilateral Throughout] Blood Pressure 99/62 99/62 95/59 O2 Sat by Pulse 100 100 100 Oximetry 04/08/22 04/08/22 04/08/22 11:00 11:10 11:20 Temperature Pulse Rate 62 60 56 L Pulse Rate [ Anterior Bilateral Throughout] Pulse Rate [ From Monitor] Respiratory 14 14 14 Rate Respiratory Rate [Anterior Bilateral Throughout] Blood Pressure 99/60 95/59 96/60 O2 Sat by Pulse 100 100 100 Oximetry 04/08/22 04/08/22 04/08/22 11:30 11:40 11:50 Temperature Pulse Rate 56 L 59 L 57 L Pulse Rate [ Anterior Bilateral Throughout] Pulse Rate [ From Monitor] Respiratory 14 14 14 Rate Respiratory Rate [Anterior Bilateral Throughout] Blood Pressure 99/61 99/61 96/58 O2 Sat by Pulse 100 100 100 Oximetry 04/08/22 04/08/22 04/08/22 12:00 12:10 12:20 Temperature 99 F Pulse Rate 56 L 56 L 57 L Pulse Rate [ Anterior Bilateral Throughout] Pulse Rate [ 56 L From Monitor] Respiratory 14 14 14 Rate Respiratory Rate [Anterior Bilateral Throughout] Blood Pressure 102/65 102/65 105/65 O2 Sat by Pulse 100 100 100 Oximetry 04/08/22 04/08/22 04/08/22 12:30 12:40 12:50 Temperature Pulse Rate 55 L 57 L 55 L Pulse Rate [ Anterior Bilateral Throughout] Pulse Rate [ From Monitor] Respiratory 14 14 14 Rate Respiratory Rate [Anterior Bilateral Throughout] Blood Pressure 106/64 102/65 103/65 O2 Sat by Pulse 100 100 100 Oximetry 04/08/22 13:00 Temperature Pulse Rate 55 L Pulse Rate [ Anterior Bilateral Throughout] Pulse Rate [ From Monitor] Respiratory 14 Rate Respiratory Rate [Anterior Bilateral Throughout] Blood Pressure 106/65 O2 Sat by Pulse 100 Oximetry Constitutional: no acute distress, alert, other (orally intubated, on full MVS- riding set vent rate) Eyes: non-icteric ENT: oropharynx moist, other (ETT 24 cm [place]) Neck: supple, no lymphadenopathy, no JVD, other (RIJ CVL) Effort: mildly labored Ascultation: Bilateral: diminished breath sounds (right lung, base), rhonchi Percussion: Bilateral: not dull Cardiovascular: regular rate and rhythm, other (S1,S2) Gastrointestinal: normoactive bowel sounds, soft, non-tender, non-distended Integumentary: normal Extremities: no cyanosis, no edema, pink and warm, pulses normal Neurologic: pupils equal and round, other (functional quadriplegia) Psychiatric: other (flat affect; sedated) CBC and BMP: 04/09/22 04:35 04/09/22 04:35 ABG, PT/INR, D-dimer: ABG ABG pH 7.379 pH Units (7.350-7.450) 04/08/22 10:25 ABG pCO2 60.1 mm Hg 04/08/22 10:25 ABG pO2 82.1 mm Hg (80.0-90.0) 04/08/22 10:25 ABG O2 Saturation 96.6 % (95.0-99.0) 04/08/22 10:25 PT/INR, D-dimer PT 15.2 Sec. (12.2-14.9) H 04/07/22 03:51 INR 1.08 (0.87-1.13) 04/07/22 03:51 Abnormal lab findings: Abnormal Labs 04/02/22 04/02/22 04/02/22 19:39 19:39 19:39 WBC 14.3 H RBC Hgb Hct MCV 96 H Plt Count 104 L Lymph % (Auto) [place] % (Auto) Lymph # (Auto) [place] # (Auto) Seg Neutrophils % Seg Neuts % (Manual) 94.0 H Lymphocytes % (Manual) 1.0 L Seg Neutrophils # Seg Neutrophils # Man 13.4 H Lymphocytes # (Manual) 0.1 L PT 15.9 H INR 1.14 H ABG pH ABG pO2 ABG HCO3 ABG O2 Saturation ABG Base Excess ABG Hemoglobin Oxyhemoglobin Sodium 151 H Potassium Chloride Carbon Dioxide Creatinine 0.5 L Glucose POC Glucose Calcium 8.2 L Phosphorus Magnesium 1.60 L Total Creatine Kinase CK-MB (CK-2) Rel Index Troponin T 0.048 H C-Reactive Protein Total Protein 4.6 L Albumin 2.7 L LDL Cholesterol Direct 27 L Urine WBC (Auto) 04/02/22 04/03/22 04/03/22 19:42 05:14 06:30 WBC RBC Hgb Hct MCV Plt Count Lymph % (Auto) [place] % (Auto) Lymph # (Auto) [place] # (Auto) Seg Neutrophils % Seg Neuts % (Manual) Lymphocytes % (Manual) Seg Neutrophils # Seg Neutrophils # Man Lymphocytes # (Manual) PT INR ABG pH 7.471 H 7.496 H ABG pO2 47.8 L 91.0 H ABG HCO3 30.6 H ABG O2 Saturation 94.4 L ABG Base Excess 6.2 H ABG Hemoglobin 11.0 L 12.8 L Oxyhemoglobin 93.1 L Sodium 149 H Potassium 3.4 L Chloride Carbon Dioxide Creatinine 0.4 L Glucose POC Glucose Calcium Phosphorus Magnesium Total Creatine Kinase CK-MB (CK-2) Rel Index Troponin T C-Reactive Protein Total Protein Albumin LDL Cholesterol Direct Urine WBC (Auto) 04/04/22 04/04/22 04/04/22 04:18 04:18 05:50 WBC 11.8 H RBC Hgb Hct MCV Plt Count 132 L Lymph % (Auto) [place] % (Auto) Lymph # (Auto) [place] # (Auto) Seg Neutrophils % Seg Neuts % (Manual) Lymphocytes % (Manual) Seg Neutrophils # Seg Neutrophils # Man Lymphocytes # (Manual) PT INR ABG pH 7.517 H ABG pO2 115.5 H ABG HCO3 29.9 H ABG O2 Saturation ABG Base Excess 6.7 H ABG Hemoglobin 12.3 L Oxyhemoglobin Sodium Potassium 3.5 L Chloride Carbon Dioxide 31 H Creatinine 0.3 L Glucose 153 H POC Glucose Calcium Phosphorus 1.40 L Magnesium 1.50 L Total Creatine Kinase CK-MB (CK-2) Rel Index Troponin T C-Reactive Protein 31.60 H Total Protein Albumin LDL Cholesterol Direct Urine WBC (Auto) 04/05/22 04/05/22 04/05/22 02:50 05:25 11:28 WBC RBC Hgb Hct MCV Plt Count Lymph % (Auto) [place] % (Auto) Lymph # (Auto) [place] # (Auto) Seg Neutrophils % Seg Neuts % (Manual) Lymphocytes % (Manual) Seg Neutrophils # Seg Neutrophils # Man Lymphocytes # (Manual) PT INR ABG pH 7.455 H ABG pO2 50.7 L ABG HCO3 30.5 H ABG O2 Saturation 89.4 L ABG Base Excess 5.9 H ABG Hemoglobin 11.8 L Oxyhemoglobin 88.2 L Sodium Potassium Chloride Carbon Dioxide 32 H Creatinine 0.2 L Glucose 110 H POC Glucose 124 H Calcium 7.9 L Phosphorus Magnesium Total Creatine Kinase CK-MB (CK-2) Rel Index Troponin T C-Reactive Protein Total Protein Albumin LDL Cholesterol Direct Urine WBC (Auto) 04/05/22 04/05/22 04/06/22 17:45 Unknown 04:00 WBC RBC 3.55 L Hgb 11.1 L 11.5 L Hct 33.2 L 35.1 L MCV Plt Count 113 L 114 L Lymph % (Auto) [place] % (Auto) Lymph # (Auto) [place] # (Auto) Seg Neutrophils % Seg Neuts % (Manual) Lymphocytes % (Manual) Seg Neutrophils # Seg Neutrophils # Man Lymphocytes # (Manual) PT INR ABG pH ABG pO2 ABG HCO3 ABG O2 Saturation ABG Base Excess ABG Hemoglobin Oxyhemoglobin Sodium Potassium Chloride Carbon Dioxide Creatinine Glucose POC Glucose Calcium Phosphorus Magnesium Total Creatine Kinase CK-MB (CK-2) Rel Index Troponin T C-Reactive Protein Total Protein Albumin LDL Cholesterol Direct Urine WBC (Auto) 8.0 H 04/06/22 04/06/22 04/07/22 04:00 08:30 00:04 WBC RBC Hgb Hct MCV Plt Count Lymph % (Auto) [place] % (Auto) Lymph # (Auto) [place] # (Auto) Seg Neutrophils % Seg Neuts % (Manual) Lymphocytes % (Manual) Seg Neutrophils # Seg Neutrophils # Man Lymphocytes # (Manual) PT INR ABG pH ABG pO2 60.8 L ABG HCO3 30.5 H ABG O2 Saturation 93.3 L ABG Base Excess 4.9 H ABG Hemoglobin 12.4 L Oxyhemoglobin 92.1 L Sodium Potassium 3.0 L Chloride Carbon Dioxide Creatinine < 0.2 L Glucose 130 H POC Glucose 117 H Calcium 8.1 L Phosphorus Magnesium Total Creatine Kinase CK-MB (CK-2) Rel Index Troponin T C-Reactive Protein Total Protein Albumin LDL Cholesterol Direct Urine WBC (Auto) 04/07/22 04/07/22 04/07/22 03:51 03:51 03:51 WBC 14.6 H RBC 3.57 L Hgb 11.1 L Hct 33.2 L MCV Plt Count 118 L Lymph % (Auto) 4.3 L [place] % (Auto) 8.8 H Lymph # (Auto) 0.6 L [place] # (Auto) 1.3 H Seg Neutrophils % 86.6 H Seg Neuts % (Manual) Lymphocytes % (Manual) Seg Neutrophils # 12.7 H Seg Neutrophils # Man Lymphocytes # (Manual) PT 15.2 H INR ABG pH ABG pO2 ABG HCO3 ABG O2 Saturation ABG Base Excess ABG Hemoglobin Oxyhemoglobin Sodium 133 L Potassium Chloride 96.0 L Carbon Dioxide 31 H Creatinine 0.2 L Glucose 130 H POC Glucose Calcium 8.0 L Phosphorus Magnesium Total Creatine Kinase CK-MB (CK-2) Rel Index Troponin T C-Reactive Protein Total Protein Albumin LDL Cholesterol Direct Urine WBC (Auto) 04/07/22 04/08/22 04/08/22 04:25 04:49 04:49 WBC 16.1 H RBC 3.54 L Hgb 10.9 L Hct 33.3 L MCV Plt Count Lymph % (Auto) [place] % (Auto) Lymph # (Auto) [place] # (Auto) Seg Neutrophils % Seg Neuts % (Manual) Lymphocytes % (Manual) Seg Neutrophils # Seg Neutrophils # Man Lymphocytes # (Manual) PT INR ABG pH ABG pO2 71.0 L ABG HCO3 31.5 H ABG O2 Saturation ABG Base Excess 5.9 H ABG Hemoglobin 11.3 L Oxyhemoglobin Sodium 136 L Potassium Chloride 97.7 L Carbon Dioxide 33 H Creatinine 0.2 L Glucose 155 H POC Glucose Calcium Phosphorus Magnesium Total Creatine Kinase CK-MB (CK-2) Rel Index Troponin T C-Reactive Protein Total Protein Albumin LDL Cholesterol Direct Urine WBC (Auto) 04/08/22 04/08/22 04/08/22 09:53 10:25 11:19 WBC RBC Hgb Hct MCV Plt Count Lymph % (Auto) [place] % (Auto) Lymph # (Auto) [place] # (Auto) Seg Neutrophils % Seg Neuts % (Manual) Lymphocytes % (Manual) Seg Neutrophils # Seg Neutrophils # Man Lymphocytes # (Manual) PT INR ABG pH ABG pO2 ABG HCO3 34.7 H ABG O2 Saturation ABG Base Excess 7.9 H ABG Hemoglobin 11.0 L Oxyhemoglobin Sodium Potassium Chloride Carbon Dioxide Creatinine Glucose POC Glucose Calcium Phosphorus Magnesium Total Creatine Kinase 31 L CK-MB (CK-2) Rel Index 6.4 H Troponin T 0.030 H 0.030 H C-Reactive Protein Total Protein Albumin LDL Cholesterol Direct Urine WBC (Auto) Chest x-ray: pending Allied health notes reviewed: nursing
--- NOTE | 2022-04-08 15:55 | Progress Note ---
Assessment and Plan Cultures: Blood culture bacillus species Sputum culture Pseudomonas, Enterobacter A/P: 57-year-old man past medical history ALS now with: #Acute sepsis: With fevers and leukocytosis. Secondary to pneumonia. #Acute hypoxic respiratory failure: Currently on the vent. #Hospital-acquired pneumonia. Was recently seen at [facility], was initially discharged to home hospice, as such was not given antibiotics. #ALS: Was on home hospice. #Bacillus bacteremia: likely contaminant. Recs: -Goals of care, poor prognosis. -Sputum culture sensitive to cefepime, continue -Follow-up cultures Thank you for the consult, we will continue to follow. Sameer Ojeda MD [facility] ([facility]) O: [phone] F: [phone] Subjective Date of service: 04/08/22 Principal diagnosis: Ac and ch hypercapnic and hypoxemic Resp Failure; ALS; HCAP; Sepsis; NSTEMI Interval history: Afebrile now, white count 16.1 which is worse. Blood cultures with bacillus species. Remains on the vent. Imaging personally reviewed: Chest ultrasound: Right-sided pleural effusion Objective - Exam Narrative Exam: Physical Exam: Constitutional: Intubated, sedated Head, Ears, Nose: Normocephalic, atraumatic. External ears, nose normal Eyes: Conjunctivae/corneas clear. No icterus. No ptosis. Neck: Supple, no meningeal signs Oral: Intubated Cardiovascular: S1, S2 normal. Respiratory: Good air entry, clear to auscultation bilaterally GI: Soft, non-tender; bowel sounds normal. No peritoneal signs. Musculoskeletal: No pedal edema, no cyanosis. Skin: No rash or abscess Hem/Lymphatic: No palpable cervical or supraclavicular nodes. No lymphangitis Psych: Mood ok. Affect normal Neurological: Sedated - Constitutional Vitals: Vital Signs Temp Pulse Resp BP Pulse Ox 99 F 63 12 106/66 100 04/08/22 12:00 04/08/22 14:10 04/08/22 14:10 04/08/22 14:10 04/08/22 14:10 Temperature -Last 24 Hours Temperature 99 F Temperature 99.9 F Temperature 99.1 F Temperature 97.6 F Temperature 98.4 F Temperature 99.4 F - Labs CBC & Chem 7: 04/08/22 04:49 04/08/22 04:49 Labs: Abnormal lab results 04/08/22 04/08/22 04/08/22 Range/Units 04:49 04:49 09:53 WBC 16.1 H (4.5-11.0) K/mm3 RBC 3.54 L (3.65-5.03) M/mm3 Hgb 10.9 L (11.8-15.2) gm/dl Hct 33.3 L (35.5-45.6) % ABG HCO3 (20.0-26.0) mmol/L ABG Base Excess (-2.0-3.0) mmol/L ABG Hemoglobin (14.0-18.0) gm/dl Sodium 136 L (137-145) mmol/L Chloride 97.7 L (98-107) mmol/L Carbon Dioxide 33 H (22-30) mmol/L Creatinine 0.2 L (0.8-1.3) mg/dL Glucose 155 H (75-100) mg/dL Total Creatine Kinase (55-170) units/L CK-MB (CK-2) Rel Index (0-4) Troponin T 0.030 H (0.00-0.029) ng/mL 04/08/22 04/08/22 Range/Units 10:25 11:19 WBC (4.5-11.0) K/mm3 RBC (3.65-5.03) M/mm3 Hgb (11.8-15.2) gm/dl Hct (35.5-45.6) % ABG HCO3 34.7 H (20.0-26.0) mmol/L ABG Base Excess 7.9 H (-2.0-3.0) mmol/L ABG Hemoglobin 11.0 L (14.0-18.0) gm/dl Sodium (137-145) mmol/L Chloride (98-107) mmol/L Carbon Dioxide (22-30) mmol/L Creatinine (0.8-1.3) mg/dL Glucose (75-100) mg/dL Total Creatine Kinase 31 L (55-170) units/L CK-MB (CK-2) Rel Index 6.4 H (0-4) Troponin T 0.030 H (0.00-0.029) ng/mL
[2022-04-08] MEDS: fentaNYL 100 MCG/2 ML INJ IV PRN (17:12)
--- NOTE | 2022-04-08 17:34 | Progress Note ---
<MARIOJUAN MarkJose Manuel - Last Filed: 04/08/22 17:35> 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, recently hospitalized at [facility] admitted for acute hypoxemic respiratory failure 2/2 pneumonia Neuro: h/o ALS -Sedated with precedex and fentanyl gtt -RASS goal 0 to -1 -Avoid delirium -Reorientation as needed -Maintain sleep-wake cycle -aspiration/seizure precautions -As needed analgesia -CT head with no acute intracranial process -Neurology consulted, appreciate recommendations -Per family patient is nonverbal at baseline but responsive Cardiac: Hypotension, elevated troponin, h/o cardiomyopathy -Cardiology consulted, appreciate recommendations -Blood pressure monitoring per protocol -Vasopressor support with Levophed -Echocardiogram shows ejection fraction of 40 to 45%, mild global hypokinesis of left ventricle Respiratory: Acute hypoxic respiratory failure -CCM consulted, appreciate recommendations -Intubated on 04/02 with a 7.50 ETT attempt at the lips -A.m. vent settings: Assist-control/ PRVC TV 400, rate 14, Peep 8, FiO2 35% -See RT notes for titration -Chest US with possible thoracentisis completed -not enough fluid to drain -CPT and mucomyst -A.m. ABG and CXR noted -VAP bundle -SPO2 monitoring GI: Moderate protein calorie malnutrition -24 hours +586 mL -PPI -NTR consulted for tube feedings -BR: Senokot/colace, MiraLAX -BM: 04/07 : Hyponatremia, hypochloremia, metabolic alkalosis -Strict intake and output -Renally dose medications -Avoid nephrotoxic medications -Daily weights -trend BMP ID: Sepsis, Acute Bronchopneumonia, HAP (Pseudomonas and Enterobacter tracheal aspirate), blood culture with bacillus species -Infectious disease consulted, appreciate recommendation -Per infectious disease patient was recently admitted to [facility] but discharged home with home hospice and not giving antibiotics -Antibiotic therapy with cefepime -f/u blood culture -Tracheal aspirate with Pseudomonas aeruginosa, Enterobacter aerogenes -CRP 31.6, procalcitonin 0.08 -Monitor WBC and temperature curve Endo: NAD -Avoid hypoglycemia -SSI -Accu-Cheks q 6 Heme: Leukocytosis -Heparin subq -Trend CBC -Transfuse hemoglobin less than 7 -Monitor for signs of bleeding -SCDs to BLE while in bed Advance Care Planning - Disease education, care plan, diagnoses, and prognosis were discussed patient's , Carly Lopez, and patient daughter, Kaylee Warren, who translated for #[phone]. They reported that patient was following at [facility] for his ALS and during recent hospitalization at [facility] they were told nothing else can be offered to patient at this time and patient was discharge home with home hospice and PO morphine. First hospice visit was on , 04/01 however, patient became unresponsive 04/02 and they brought in to the hospital. - Goal of care and code status were also addressed at that time. Family wants to wait for a couple days to see how patient respond to current treatment before making a decision. All questions and concerns were addressed at this time. Patient family acknowledged understanding and agreement with care plan. -Patient remains a FULL CODE status. -04/05: Discussion at bedside with interpreting service with Dr. Valdivia and family state they would discuss next steps amongst themselves and let healthcare team know of decisions -04/06: extensive discussion with family ( and son) with Dr. Grayson regarding goals of care -04/08: Extensive discussion with with the use of numerical tool programmer line regarding goals of care; no decision made. Possible consult to surgery for trach/PEG early next week. The high probability of a clinically significant, sudden or life threatening deterioration of the [multiple] system(s) required my full and direct attention, intervention and personal management. The aggregate critical care time was [90] minutes. This time is in addition to time spent performing reported procedures but includes the following: [x] Data Review and interpretation [x] Patient assessment and monitoring of vital signs [x] Documentation [x] Medication orders and management Disposition Plan: icu Total Time Spent with Patient (Minutes): 90 History Interval history: This is a 57-year-old male with ALS who presented to the emergency department on 04/02 with complaints of altered mental status and respiratory distress he was recently discharged home from [facility] with a diagnosis of pneumonia and elevated troponins. Work-up in the emergency department revealed leukocytosis, elevated troponin and hyponatremia and CXR revealed moderate to large pleural effusion on the right. Patient was having agonal breathing in the emergency department and was intubated. Patient was admitted to the hospitalist service with consults to [facility], cardiology and infectious disease for further work-up. Hospital Course to Date: 04/03: Intubated and Sedated on versed gtt, RASS-5. CT head/brain noted with no acute intracranial abnormality. Plan to initiated precededx gtt and wean off versed for a RASS goal of 0 to -2. CT chect also reviewed, findings are most consistent with acute bronchopneumonia. Continue empiric IV Abx, vent adjustment per CCM. ID consulted. Continue to F/U on cultures. Titrate pressor for MAP above 65. Medical records requested from [facility]. 04/04: Remains stable on the vent, easily arousable on precedex gtt, not following commands. Plan for SAT/SBT today. PRN analgesia for CPOT greater than 3. Fevers improved, cultures and procal pending. Continue current IV abx, ID also consulted. Remains on low dose pressors, titrate pressors for a MAP above 65. 04/05: Long discussion with family with use of translation phone with CCM regarding goals of care. Family to have meeting amongst themselves and informed care team of decisions. Fentanyl drip added for respiratory distress. Remains on Precedex drip. Antibiotics per ID. Given 2L NS bolus with levophed gtt 04/06: Family discussion with Dr. Grayson for goals of care. CXR shows possible mucus plug, continue CPT as FiO2 is being able to be weaned. Potassium repleted. Weaning fentnyl gtt. 04/07: Ultrasound guided thoracentesis today scheduled, inadequate amount of pleural effusion on so not completed. Patient was started on Levophed overnight which was weaned off this morning however had to be started twice a day. Remains on fentanyl and Precedex. Cardiology discontinued BB and ACEi in setting of hypotension. 04/08: COVID-19 PCR negative. Routine EEG ordered by cardiology which showed ST changes, cardiology aware. They will continue conservative treatment. Repeat troponins 0.030 which are less than admit of 0.048. Dr. Grayson had a long discussion with with the use of numerical tool programmer today at bedside and has not made a decision regarding goals of care. Possible consult to surgery for trach/PEG early next week. Continues to require Precedex and fentanyl drip for sedation. Carvedilol/lisinopril discontinued as patient is continuously on Levophed. Hospitalist Physical - Constitutional Vitals: Temp Pulse Resp BP Pulse Ox 99 F 70 12 120/71 99 04/08/22 12:00 04/08/22 16:45 04/08/22 14:10 04/08/22 16:45 04/08/22 16:45 General appearance: Present: no acute distress, cachectic, other (Intubated, easily arousable on precedex gtt) - EENT Eyes: Present: PERRL, EOM intact ENT: poor dentition - Neck Neck: Present: normal ROM - Respiratory Respiratory effort: labored, accessory muscle use Respiratory: bilateral: diminished - Cardiovascular Rhythm: regular Heart Sounds: Present: S1 & S2. Absent: systolic murmur, diastolic murmur - Extremities Extremities: no ischemia, pulses intact, pulses symmetrical, No edema, normal temperature, normal color Peripheral Pulses: within normal limits - Abdominal General gastrointestinal: soft, non-tender, non-distended, normal bowel sounds - Integumentary Integumentary: Present: warm, dry - Psychiatric Psychiatric: agitated - Neurologic Neurologic: other (Intact cough/gag, pupils equal and reactive, follows commands.) - Allied Health Allied health notes reviewed: nursing, RT, social work HEART Score - HEART Score Troponin: Troponin T 0.030 ng/mL (0.00-0.029) H 04/08/22 11:19 Results - Labs CBC & Chem 7: 04/08/22 04:49 04/08/22 04:49 Labs: Laboratory Last Values WBC 16.1 K/mm3 (4.5-11.0) H 04/08/22 04:49 RBC 3.54 M/mm3 (3.65-5.03) L 04/08/22 04:49 Hgb 10.9 gm/dl (11.8-15.2) L 04/08/22 04:49 Hct 33.3 % (35.5-45.6) L 04/08/22 04:49 MCV 94 fl (84-94) 04/08/22 04:49 MCH 31 pg (28-32) 04/08/22 04:49 MCHC 33 % (32-34) 04/08/22 04:49 RDW 13.7 % (13.2-15.2) 04/08/22 04:49 Plt Count 162 K/mm3 (140-440) 04/08/22 04:49 Lymph % (Auto) 4.3 % (13.4-35.0) L 04/07/22 03:51 [place] % (Auto) 8.8 % (0.0-7.3) H 04/07/22 03:51 Eos % (Auto) 0.1 % (0.0-4.3) 04/07/22 03:51 Baso % (Auto) 0.2 % (0.0-1.8) 04/07/22 03:51 Lymph # (Auto) 0.6 K/mm3 (1.2-5.4) L 04/07/22 03:51 [place] # (Auto) 1.3 K/mm3 (0.0-0.8) H 04/07/22 03:51 Eos # (Auto) 0.0 K/mm3 (0.0-0.4) 04/07/22 03:51 Baso # (Auto) 0.0 K/mm3 (0.0-0.1) 04/07/22 03:51 Add Manual Diff Complete 04/02/22 19:39 Total Counted 100 04/02/22 19:39 Seg Neutrophils % 86.6 % (40.0-70.0) H 04/07/22 03:51 Seg Neuts % (Manual) 94.0 % (40.0-70.0) H 04/02/22 19:39 Band Neutrophils % 0 % 04/02/22 19:39 Lymphocytes % (Manual) 1.0 % (13.4-35.0) L 04/02/22 19:39 Reactive Lymphs % (Man) 0 % 04/02/22 19:39 Monocytes % (Manual) 5.0 % (0.0-7.3) 04/02/22 19:39 Eosinophils % (Manual) 0 % (0.0-4.3) 04/02/22 19:39 Basophils % (Manual) 0 % (0.0-1.8) 04/02/22 19:39 Metamyelocytes % 0 % 04/02/22 19:39 Myelocytes % 0 % 04/02/22 19:39 Promyelocytes % 0 % 04/02/22 19:39 Blast Cells % 0 % 04/02/22 19:39 Nucleated RBC % Not Reportable 04/02/22 19:39 Seg Neutrophils # 12.7 K/mm3 (1.8-7.7) H 04/07/22 03:51 Seg Neutrophils # Man 13.4 K/mm3 (1.8-7.7) H 04/02/22 19:39 Band Neutrophils # 0.0 K/mm3 04/02/22 19:39 Lymphocytes # (Manual) 0.1 K/mm3 (1.2-5.4) L 04/02/22 19:39 Abs React Lymphs (Man) 0.0 K/mm3 04/02/22 19:39 Monocytes # (Manual) 0.7 K/mm3 (0.0-0.8) 04/02/22 19:39 Eosinophils # (Manual) 0.0 K/mm3 (0.0-0.4) 04/02/22 19:39 Basophils # (Manual) 0.0 K/mm3 (0.0-0.1) 04/02/22 19:39 Metamyelocytes # 0.0 K/mm3 04/02/22 19:39 Myelocytes # 0.0 K/mm3 04/02/22 19:39 Promyelocytes # 0.0 K/mm3 04/02/22 19:39 Blast Cells # 0.0 K/mm3 04/02/22 19:39 WBC Morphology Not Reportable 04/02/22 19:39 Hypersegmented Neuts Not Reportable 04/02/22 19:39 Hyposegmented Neuts Not Reportable 04/02/22 19:39 Hypogranular Neuts Not Reportable 04/02/22 19:39 Smudge Cells Not Reportable 04/02/22 19:39 Toxic Granulation Not Reportable 04/02/22 19:39 Toxic Vacuolation Not Reportable 04/02/22 19:39 Dohle Bodies Not Reportable 04/02/22 19:39 Pelger-Huet Anomaly Not Reportable 04/02/22 19:39 Terry Rods Not Reportable 04/02/22 19:39 Platelet Estimate Consistent w auto 04/02/22 19:39 Clumped Platelets Not Reportable 04/02/22 19:39 Plt Clumps, EDTA Not Reportable 04/02/22 19:39 Large Platelets Not Reportable 04/02/22 19:39 Giant Platelets Not Reportable 04/02/22 19:39 Platelet Satelliting Not Reportable 04/02/22 19:39 Plt Morphology Comment Not Reportable 04/02/22 19:39 RBC Morphology Not Reportable 04/02/22 19:39 Dimorphic RBCs Not Reportable 04/02/22 19:39 Polychromasia Not Reportable 04/02/22 19:39 Hypochromasia Not Reportable 04/02/22 19:39 Poikilocytosis Not Reportable 04/02/22 19:39 Anisocytosis 1+ 04/02/22 19:39 Microcytosis Not Reportable 04/02/22 19:39 Macrocytosis Not Reportable 04/02/22 19:39 Spherocytes Not Reportable 04/02/22 19:39 Pappenheimer Bodies Not Reportable 04/02/22 19:39 Sickle Cells Not Reportable 04/02/22 19:39 Target Cells Not Reportable 04/02/22 19:39 Tear Drop Cells Not Reportable 04/02/22 19:39 Ovalocytes Not Reportable 04/02/22 19:39 Helmet Cells Not Reportable 04/02/22 19:39 [place] Bodies Not Reportable 04/02/22 19:39 [place] Rings Not Reportable 04/02/22 19:39 [place] Cells Not Reportable 04/02/22 19:39 Bite Cells Not Reportable 04/02/22 19:39 Crenated Cell Not Reportable 04/02/22 19:39 Elliptocytes Not Reportable 04/02/22 19:39 Acanthocytes (Spur) Not Reportable 04/02/22 19:39 Rouleaux Not Reportable 04/02/22 19:39 Hemoglobin C Crystals Not Reportable 04/02/22 19:39 Schistocytes Not Reportable 04/02/22 19:39 Malaria parasites Not Reportable 04/02/22 19:39 [place] Bodies Not Reportable 04/02/22 19:39 Hem Pathologist Commnt No 04/02/22 19:39 PT 15.2 Sec. (12.2-14.9) H 04/07/22 03:51 INR 1.08 (0.87-1.13) 04/07/22 03:51 APTT 35.7 Sec. (24.2-36.6) 04/07/22 03:51 ABG pH 7.379 pH Units (7.350-7.450) 04/08/22 10:25 ABG pCO2 60.1 mm Hg 04/08/22 10:25 ABG pO2 82.1 mm Hg (80.0-90.0) 04/08/22 10:25 ABG HCO3 34.7 mmol/L (20.0-26.0) H 04/08/22 10:25 ABG O2 Saturation 96.6 % (95.0-99.0) 04/08/22 10:25 ABG O2 Content 14.8 (0.0-44) 04/08/22 10:25 ABG Base Excess 7.9 mmol/L (-2.0-3.0) H 04/08/22 10:25 ABG Hemoglobin 11.0 gm/dl (14.0-18.0) L 04/08/22 10:25 ABG Carboxyhemoglobin 1.3 % (0.0-5.0) 04/08/22 10:25 ABG Methemoglobin 0.4 % (0.0-1.5) 04/08/22 10:25 Oxyhemoglobin 95.0 % (95.0-99.0) 04/08/22 10:25 FiO2 35 % 04/08/22 10:25 Sodium 136 mmol/L (137-145) L 04/08/22 04:49 Potassium 4.3 mmol/L (3.6-5.0) 04/08/22 04:49 Chloride 97.7 mmol/L (98-107) L 04/08/22 04:49 Carbon Dioxide 33 mmol/L (22-30) H 04/08/22 04:49 Anion Gap 10 mmol/L 04/08/22 04:49 BUN 9 mg/dL (9-20) 04/08/22 04:49 Creatinine 0.2 mg/dL (0.8-1.3) L 04/08/22 04:49 Estimated GFR > 60 ml/min 04/08/22 04:49 BUN/Creatinine Ratio 45 % 04/08/22 04:49 Glucose 155 mg/dL (75-100) H 04/08/22 04:49 POC Glucose 96 mg/dL (70-105) 04/07/22 16:12 Lactic Acid 1.90 mmol/L (0.7-2.0) 04/02/22 19:39 Calcium 8.4 mg/dL (8.4-10.2) 04/08/22 04:49 Phosphorus 3.50 mg/dL (2.5-4.5) D 04/05/22 02:50 Magnesium 2.00 mg/dL (1.7-2.3) 04/05/22 02:50 Total Bilirubin 0.80 mg/dL (0.1-1.2) 04/02/22 19:39 AST 15 units/L (5-40) 04/02/22 19:39 ALT 9 units/L (7-56) 04/02/22 19:39 Alkaline Phosphatase 43 units/L (35-129) 04/02/22 19:39 Total Creatine Kinase 31 units/L (55-170) L 04/08/22 11:19 CK-MB (CK-2) 2.0 ng/mL (0.0-4.0) 04/08/22 11:19 CK-MB (CK-2) Rel Index 6.4 (0-4) H 04/08/22 11:19 Troponin T 0.030 ng/mL (0.00-0.029) H 04/08/22 11:19 C-Reactive Protein 31.60 mg/dL (0.00-1.30) H 04/04/22 04:18 Total Protein 4.6 g/dL (6.3-8.2) L 04/02/22 19:39 Albumin 2.7 g/dL (3.9-5) L 04/02/22 19:39 Albumin/Globulin Ratio 1.4 % 04/02/22 19:39 Triglycerides 80 mg/dL (2-149) 04/02/22 19:39 Cholesterol 94 mg/dL (50-199) 04/02/22 19:39 LDL Cholesterol Direct 27 mg/dL (50-130) L 04/02/22 19:39 HDL Cholesterol 47 mg/dL (40-59) 04/02/22 19:39 Cholesterol/HDL Ratio 2.00 % 04/02/22 19:39 Procalcitonin 0.08 ng/mL (<0.15) 04/04/22 04:18 Urine Color [place] (Yellow) 04/05/22 17:45 Urine Turbidity Cloudy (Clear) 04/05/22 17:45 Urine pH 5.0 (5.0-7.0) 04/05/22 17:45 Ur Specific [place] 1.021 (1.003-1.030) 04/05/22 17:45 Urine Protein 30 mg/dl mg/dL (Negative) 04/05/22 17:45 Urine Glucose (UA) Neg mg/dL (Negative) 04/05/22 17:45 Urine Ketones Tr mg/dL (Negative) 04/05/22 17:45 Urine Blood Sm (Negative) 04/05/22 17:45 Urine Nitrite Neg (Negative) 04/05/22 17:45 Urine Bilirubin Neg (Negative) 04/05/22 17:45 Urine Urobilinogen < 2.0 mg/dL (<2.0) 04/05/22 17:45 Ur Leukocyte Esterase Tr (Negative) 04/05/22 17:45 Urine WBC (Auto) 8.0 /HPF (0.0-6.0) H 04/05/22 17:45 Urine RBC (Auto) 3.0 /HPF (0.0-6.0) 04/05/22 17:45 U Epithel Cells (Auto) 2.0 /HPF (0-13.0) 04/05/22 17:45 Urine Bacteria (Auto) 1+ /HPF (Negative) 04/02/22 Unknown Hyaline Casts 1 /LPF 04/05/22 17:45 Urine Mucus 3+ /HPF 04/05/22 17:45 Nasal Screen MRSA (PCR) Negative (Negative) 04/05/22 12:37 Vancomycin Trough 6.0 ug/mL (5.0-20.0) 04/05/22 18:53 Coronavirus (PCR) Negative (Negative) 04/07/22 14:52 Microbiology: Microbiology 04/02/22 19:39 Peripheral/Venous Blood Culture - Final NO GROWTH AFTER 5 DAYS 04/05/22 18:53 Peripheral/Venous Blood Culture - Preliminary NO GROWTH AFTER 48 HOURS 04/05/22 18:53 Peripheral/Venous Blood Culture - Preliminary NO GROWTH AFTER 48 HOURS Perez/IV: Voiding Method Indwelling Catheter Active Medications - Current Medications Current Medications: Generic Name Dose Route Start Last Admin Trade Name Freq PRN Reason Stop Dose Admin Acetaminophen 650 mg 04/02/22 23:53 04/08/22 09:33 Acetaminophen 325 Mg Tab PO 650 mg Q6H PRN Administration Pain MILD(1-3)/Fever >100.5/FAITH Acetylcysteine 200 mg 04/06/22 11:45 04/08/22 16:50 Acetylcysteine 20% 200 Mg/1 Ml *For Inhalation Use* INHALATION 04/09/22 00:01 200 mg Q8HRT SEGUNDO Administration Albuterol 2.5 mg 04/06/22 16:00 04/08/22 16:50 Albuterol 2.5 Mg/3 Ml Nebu IH 2.5 mg Q8HRT SEGUNDO Administration Bisacodyl 10 mg 04/07/22 09:44 Bisacodyl 10 Mg Rect Supp VT QDAY PRN Constipation Dextrose 50 ml 04/06/22 17:54 Dextrose 50% In Water (25gm) 50 Ml Syringe IV Q30MIN PRN Hypoglycemia Protocol Docusate Sodium 100 mg 04/03/22 15:00 04/08/22 09:33 Docusate Sodium 100 Mg/10 Ml Oral Liqd PO 100 mg BID SEGUNDO Administration Famotidine 20 mg 04/06/22 10:00 04/08/22 09:33 Famotidine 20 Mg Tab FEEDTUBE 20 mg BID SEGUNDO Administration Fentanyl 50 mcg 04/04/22 15:56 04/08/22 17:12 Fentanyl 100 Mcg/2 Ml Inj IV 50 mcg Q2HR PRN Administration For CPOT of greater than 2 Heparin Sodium (Porcine) 5,000 unit 04/03/22 06:00 04/08/22 13:49 Heparin 5,000 Unit/1 Ml Vial SUB-Q 5,000 unit Q8HR SEGUNDO Administration NORepinephrine/NS 8 MG-250 ML 8 mg in 250 mls @ 3.75 mls/hr 04/02/22 22:00 04/08/22 13:50 Norepinephrine/Ns 8 Mg-250 Ml (Double Conc) IV 12 mcg/min TITRATE SEGUNDO 22.5 mls/hr Administration Protocol 2 MCG/MIN Dexmedetomidine HCl 400 mcg/ 104 mls @ 2.434 mls/hr 04/03/22 07:00 04/08/22 14:55 Sodium Chloride IV 1 mcg/kg/hr TITRATE SEGUNDO 12.168 mls/hr Titration Protocol 0.2 MCG/KG/HR Cefepime HCl 2 gm in 100 mls @ 200 mls/hr 04/03/22 18:00 04/08/22 06:30 Cefepime/Ns 2 Gm/100 Ml IV 200 mls/hr Q12H SEGUNDO Administration Protocol Fentanyl Citrate 2,000 mcg in 100 mls @ 2.34 mls/hr 04/05/22 11:00 04/08/22 13:49 Fentanyl Drip Premix IV 4 mcg/kg/hr TITR SEGUNDO 9.36 mls/hr Administration Protocol 1 MCG/KG/HR Insulin Human Regular 0 units 04/06/22 18:00 04/08/22 12:14 Insulin Regular, Human 100 Units/1 Ml SUB-Q Not Given Q6H [facility] Protocol Magnesium Hydroxide 30 ml 04/02/22 23:53 Magnesium Hydroxide (Mom) Oral Liqd Udc PO Q4H PRN Constipation Ondansetron HCl 4 mg 04/02/22 23:53 Ondansetron 4 Mg/2 Ml Inj IV Q8H PRN Nausea And Vomiting Polyethylene Glycol 17 gm 04/08/22 10:00 04/08/22 09:33 Polyethylene Glycol 3350 17 Gm Powder PO 17 gm QDAY SEGUNDO Administration Senna 17.6 mg 04/03/22 22:00 04/08/22 09:33 Sennosides Oral Liqd 8.8 Mg/5 Ml Oral Liqd PO 17.6 mg Q12HR SEGUNDO Administration Sodium Chloride 10 ml 04/03/22 10:00 04/08/22 09:34 Sodium Chloride 0.9% 10 Ml Flush Syringe IV 10 ml BID SEGUNDO Administration Sodium Chloride 10 ml 04/02/22 23:53 Sodium Chloride 0.9% 10 Ml Flush Syringe IV PRN PRN LINE FLUSH Nutrition/Malnutrition Assess - Dietary Evaluation Nutrition/Malnutrition Findings: Nutrition Notes Start: 04/04/22 13:13 Freq: Status: Active Protocol: Document 04/06/22 12:38 COLLEEN (Rec: 04/06/22 13:23 COLLEEN [id number]) Nutrition Notes Initial or Follow up Reassessment Current Diagnosis Sepsis,Respiratory Failure, Malnutrition Other Pertinent Diagnosis HAP, HFpEF, Elevated Troponin, ALS, Hypokalemia, Hypotension , ... Current Diet TF-Vital AF 1.2 Inderjit @ 50 ml/hr (since D 04/06) Labs/Tests 04/06: K 3.0, Crea <0.2, Glu 130, Ca 8.1. Pertinent Medications 04/06: KCl 40mEq, others nutritionally unremarkable. Height 5 ft 4.8 in Weight 46.8 kg Castor Body Weight (kg) 61.27 BMI 17.2 Intake Prior to Admission Poor Weight change and time frame No body weight change reported in 2 days. Weight Status Underweight Subjective/Other Information RD consult for routine F/U on TF tolerance/ continuation, and Low BMI assessment. Pt continues TF as prescribed, well tolerated, according to RN. Pt is on Mechanical ventilation, O2 saturation @ 96%, according to Physical Assessment Histroy notes. Pt presents constipation, according to Physical Assessment Histroy notes. Pt is swallow and Chewing impaired, according to Physical Assessment Histroy notes. Pt is alert and oriented, but continues on Mechanical Ventilation, according to Progress notes. Pt's Low BMI seems to correspond to a natural body composition, and not related to a sudden loss of body weight nor chronic malnutrition, since no signs of concern were mentioned in the Physical Assessment History or the Progress notes. Percent of energy/protein needs met: Prescribed TF-Vital AF 1.2 Inderjit @ 50 ml/hr provides for energy/protein needs (1,450 Kcal/91 g) during LOS, 98% Kcal; 100% AA. Burn Absent Trauma Absent GI Symptoms Constipation Difficulty In Swallowing,Chewing Food Allergy No Skin Integrity/Comment Unspecified Area of Concern. Current % PO Other Minimum of two criteria No #1 Nutrition Diagnosis Swallowing difficulty,Biting/ Chewing (masticatory) difficulty Comments: Change Nutrition Diagnostic for precision. Etiology ALS, Mechanical Ventilation. As Evidenced by Signs and Symptoms Pt currently on TF. Is patient on ventilator? Yes Is Patient Ambulatory and/or Out of Bed No REE-([facility]-confined to bed) [phone] Calculation Used for Recommendations [facility] Additional Notes Protein: 1.2-2 g/Kg IBW; 73- 122 g/day. Fluids: 1 ml/Kcal, or as per MD. Nutrition Intervention Nutrition Support: Continue TF-Vital AF 1.2 Inderjit @ 50 ml/hr. Flush: 80 ml water Q 4 hr, or as per MD. Kcal 1,450 Protein (gm) 91 Carbohydrates (gm) 134 Fat (gm) 65 Fluid (mL) 980 Fiber (gm) 6 % RDI: 98% Kcal; 100% AA. Goal #1 Provide at least 75% of energy /protein needs through Enteral Feeding during LOS. Goal #2 Maintain body weight within +/ -3% of admission body weight during LOS. Follow-Up By: 04/13/22 Additional Comments Continue monitoring TF tolerance and BM. <NORM GRAYSON - Last Filed: 04/13/22 10:21> Assessment and Plan Assessment and plan: I saw and evaluated the patient. Discussed with the nurse practitioner and agree with their findings and plan as documented in this note. Hospitalist Physical - Constitutional Vitals: Temp Pulse Resp BP Pulse Ox 98 F 110 H 18 131/87 96 04/13/22 08:00 04/13/22 08:34 04/13/22 08:34 04/13/22 08:15 04/13/22 08:15 HEART Score - HEART Score Troponin: Troponin T 0.031 ng/mL (0.00-0.029) H 04/08/22 17:47 Results - Labs CBC & Chem 7: 04/13/22 04:30 04/13/22 04:30 Labs: Laboratory Last Values WBC 14.1 K/mm3 (4.5-11.0) H 04/13/22 04:30 RBC 2.66 M/mm3 (3.65-5.03) L 04/13/22 04:30 Hgb 8.4 gm/dl (11.8-15.2) L 04/13/22 04:30 Hct 25.5 % (35.5-45.6) L 04/13/22 04:30 MCV 96 fl (84-94) H 04/13/22 04:30 MCH 32 pg (28-32) 04/13/22 04:30 MCHC 33 % (32-34) 04/13/22 04:30 RDW 13.9 % (13.2-15.2) 04/13/22 04:30 Plt Count 245 K/mm3 (140-440) 04/13/22 04:30 Lymph % (Auto) 4.3 % (13.4-35.0) L 04/07/22 03:51 [place] % (Auto) 8.8 % (0.0-7.3) H 04/07/22 03:51 Eos % (Auto) 0.1 % (0.0-4.3) 04/07/22 03:51 Baso % (Auto) 0.2 % (0.0-1.8) 04/07/22 03:51 Lymph # (Auto) 0.6 K/mm3 (1.2-5.4) L 04/07/22 03:51 [place] # (Auto) 1.3 K/mm3 (0.0-0.8) H 04/07/22 03:51 Eos # (Auto) 0.0 K/mm3 (0.0-0.4) 04/07/22 03:51 Baso # (Auto) 0.0 K/mm3 (0.0-0.1) 04/07/22 03:51 Add Manual Diff Complete 04/02/22 19:39 Total Counted 100 04/02/22 19:39 Seg Neutrophils % 86.6 % (40.0-70.0) H 04/07/22 03:51 Seg Neuts % (Manual) 94.0 % (40.0-70.0) H 04/02/22 19:39 Band Neutrophils % 0 % 04/02/22 19:39 Lymphocytes % (Manual) 1.0 % (13.4-35.0) L 04/02/22 19:39 Reactive Lymphs % (Man) 0 % 04/02/22 19:39 Monocytes % (Manual) 5.0 % (0.0-7.3) 04/02/22 19:39 Eosinophils % (Manual) 0 % (0.0-4.3) 04/02/22 19:39 Basophils % (Manual) 0 % (0.0-1.8) 04/02/22 19:39 Metamyelocytes % 0 % 04/02/22 19:39 Myelocytes % 0 % 04/02/22 19:39 Promyelocytes % 0 % 04/02/22 19:39 Blast Cells % 0 % 04/02/22 19:39 Nucleated RBC % Not Reportable 04/02/22 19:39 Seg Neutrophils # 12.7 K/mm3 (1.8-7.7) H 04/07/22 03:51 Seg Neutrophils # Man 13.4 K/mm3 (1.8-7.7) H 04/02/22 19:39 Band Neutrophils # 0.0 K/mm3 04/02/22 19:39 Lymphocytes # (Manual) 0.1 K/mm3 (1.2-5.4) L 04/02/22 19:39 Abs React Lymphs (Man) 0.0 K/mm3 04/02/22 19:39 Monocytes # (Manual) 0.7 K/mm3 (0.0-0.8) 04/02/22 19:39 Eosinophils # (Manual) 0.0 K/mm3 (0.0-0.4) 04/02/22 19:39 Basophils # (Manual) 0.0 K/mm3 (0.0-0.1) 04/02/22 19:39 Metamyelocytes # 0.0 K/mm3 04/02/22 19:39 Myelocytes # 0.0 K/mm3 04/02/22 19:39 Promyelocytes # 0.0 K/mm3 04/02/22 19:39 Blast Cells # 0.0 K/mm3 04/02/22 19:39 WBC Morphology Not Reportable 04/02/22 19:39 Hypersegmented Neuts Not Reportable 04/02/22 19:39 Hyposegmented Neuts Not Reportable 04/02/22 19:39 Hypogranular Neuts Not Reportable 04/02/22 19:39 Smudge Cells Not Reportable 04/02/22 19:39 Toxic Granulation Not Reportable 04/02/22 19:39 Toxic Vacuolation Not Reportable 04/02/22 19:39 Dohle Bodies Not Reportable 04/02/22 19:39 Pelger-Huet Anomaly Not Reportable 04/02/22 19:39 Terry Rods Not Reportable 04/02/22 19:39 Platelet Estimate Consistent w auto 04/02/22 19:39 Clumped Platelets Not Reportable 04/02/22 19:39 Plt Clumps, EDTA Not Reportable 04/02/22 19:39 Large Platelets Not Reportable 04/02/22 19:39 Giant Platelets Not Reportable 04/02/22 19:39 Platelet Satelliting Not Reportable 04/02/22 19:39 Plt Morphology Comment Not Reportable 04/02/22 19:39 RBC Morphology Not Reportable 04/02/22 19:39 Dimorphic RBCs Not Reportable 04/02/22 19:39 Polychromasia Not Reportable 04/02/22 19:39 Hypochromasia Not Reportable 04/02/22 19:39 Poikilocytosis Not Reportable 04/02/22 19:39 Anisocytosis 1+ 04/02/22 19:39 Microcytosis Not Reportable 04/02/22 19:39 Macrocytosis Not Reportable 04/02/22 19:39 Spherocytes Not Reportable 04/02/22 19:39 Pappenheimer Bodies Not Reportable 04/02/22 19:39 Sickle Cells Not Reportable 04/02/22 19:39 Target Cells Not Reportable 04/02/22 19:39 Tear Drop Cells Not Reportable 04/02/22 19:39 Ovalocytes Not Reportable 04/02/22 19:39 Helmet Cells Not Reportable 04/02/22 19:39 [place] Bodies Not Reportable 04/02/22 19:39 [place] Rings Not Reportable 04/02/22 19:39 Che[place] Cells Not Reportable 04/02/22 19:39 Bite Cells Not Reportable 04/02/22 19:39 Crenated Cell Not Reportable 04/02/22 19:39 Elliptocytes Not Reportable 04/02/22 19:39 Acanthocytes (Spur) Not Reportable 04/02/22 19:39 Rouleaux Not Reportable 04/02/22 19:39 Hemoglobin C Crystals Not Reportable 04/02/22 19:39 Schistocytes Not Reportable 04/02/22 19:39 Malaria parasites Not Reportable 04/02/22 19:39 [place] Bodies Not Reportable 04/02/22 19:39 Hem Pathologist Commnt No 04/02/22 19:39 PT 13.6 Sec. (12.2-14.9) 04/13/22 04:30 INR 0.94 (0.87-1.13) 04/13/22 04:30 APTT 35.7 Sec. (24.2-36.6) 04/07/22 03:51 ABG pH 7.360 pH Units (7.350-7.450) 04/11/22 16:20 ABG pCO2 73.3 mm Hg 04/11/22 16:20 ABG pO2 57.8 mm Hg (80.0-90.0) L 04/11/22 16:20 ABG HCO3 40.5 mmol/L (20.0-26.0) H 04/11/22 16:20 ABG O2 Saturation 90.6 % (95.0-99.0) L 04/11/22 16:20 ABG O2 Content 13.2 (0.0-44) 04/11/22 16:20 ABG Base Excess 12.6 mmol/L (-2.0-3.0) H 04/11/22 16:20 ABG Hemoglobin 10.5 gm/dl (14.0-18.0) L 04/11/22 16:20 ABG Carboxyhemoglobin 1.4 % (0.0-5.0) 04/11/22 16:20 ABG Methemoglobin 0.4 % (0.0-1.5) 04/11/22 16:20 Oxyhemoglobin 89.0 % (95.0-99.0) L 04/11/22 16:20 FiO2 75 % 04/11/22 16:20 Sodium 139 mmol/L (137-145) 04/13/22 04:30 Potassium 4.5 mmol/L (3.6-5.0) 04/13/22 04:30 Chloride 93.9 mmol/L (98-107) L 04/13/22 04:30 Carbon Dioxide 39 mmol/L (22-30) H 04/13/22 04:30 Anion Gap 11 mmol/L 04/13/22 04:30 BUN 16 mg/dL (9-20) 04/13/22 04:30 Creatinine < 0.2 mg/dL (0.8-1.3) L 04/13/22 04:30 Estimated GFR > 60 ml/min 04/13/22 04:30 BUN/Creatinine Ratio 80 % 04/13/22 04:30 Glucose 95 mg/dL (75-100) 04/13/22 04:30 POC Glucose 107 mg/dL (70-105) H 04/12/22 23:39 Lactic Acid 1.90 mmol/L (0.7-2.0) 04/02/22 19:39 Calcium 8.5 mg/dL (8.4-10.2) 04/13/22 04:30 Phosphorus 1.90 mg/dL (2.5-4.5) L 04/13/22 04:30 Magnesium 1.90 mg/dL (1.7-2.3) 04/13/22 04:30 Total Bilirubin 0.80 mg/dL (0.1-1.2) 04/02/22 19:39 AST 15 units/L (5-40) 04/02/22 19:39 ALT 9 units/L (7-56) 04/02/22 19:39 Alkaline Phosphatase 43 units/L (35-129) 04/02/22 19:39 Total Creatine Kinase 46 units/L (55-170) L 04/08/22 17:47 CK-MB (CK-2) 2.6 ng/mL (0.0-4.0) 04/08/22 17:47 CK-MB (CK-2) Rel Index 5.6 (0-4) H 04/08/22 17:47 Troponin T 0.031 ng/mL (0.00-0.029) H 04/08/22 17:47 C-Reactive Protein 31.60 mg/dL (0.00-1.30) H 04/04/22 04:18 Total Protein 4.6 g/dL (6.3-8.2) L 04/02/22 19:39 Albumin 2.7 g/dL (3.9-5) L 04/02/22 19:39 Albumin/Globulin Ratio 1.4 % 04/02/22 19:39 Triglycerides 80 mg/dL (2-149) 04/02/22 19:39 Cholesterol 94 mg/dL (50-199) 04/02/22 19:39 LDL Cholesterol Direct 27 mg/dL (50-130) L 04/02/22 19:39 HDL Cholesterol 47 mg/dL (40-59) 04/02/22 19:39 Cholesterol/HDL Ratio 2.00 % 04/02/22 19:39 Procalcitonin 0.08 ng/mL (<0.15) 04/04/22 04:18 Urine Color Aracely (Yellow) 04/05/22 17:45 Urine Turbidity Cloudy (Clear) 04/05/22 17:45 Urine pH 5.0 (5.0-7.0) 04/05/22 17:45 Ur Specific [place] 1.021 (1.003-1.030) 04/05/22 17:45 Urine Protein 30 mg/dl mg/dL (Negative) 04/05/22 17:45 Urine Glucose (UA) Neg mg/dL (Negative) 04/05/22 17:45 Urine Ketones Tr mg/dL (Negative) 04/05/22 17:45 Urine Blood Sm (Negative) 04/05/22 17:45 Urine Nitrite Neg (Negative) 04/05/22 17:45 Urine Bilirubin Neg (Negative) 04/05/22 17:45 Urine Urobilinogen < 2.0 mg/dL (<2.0) 04/05/22 17:45 Ur Leukocyte Esterase Tr (Negative) 04/05/22 17:45 Urine WBC (Auto) 8.0 /HPF (0.0-6.0) H 04/05/22 17:45 Urine RBC (Auto) 3.0 /HPF (0.0-6.0) 04/05/22 17:45 U Epithel Cells (Auto) 2.0 /HPF (0-13.0) 04/05/22 17:45 Urine Bacteria (Auto) 1+ /HPF (Negative) 04/02/22 Unknown Hyaline Casts 1 /LPF 04/05/22 17:45 Urine Mucus 3+ /HPF 04/05/22 17:45 Nasal Screen MRSA (PCR) Negative (Negative) 04/05/22 12:37 Vancomycin Trough 6.0 ug/mL (5.0-20.0) 04/05/22 18:53 Coronavirus (PCR) Negative (Negative) 04/07/22 14:52 Perez/IV: Voiding Method Condom Catheter Active Medications - Current Medications Current Medications: Generic Name Dose Route Start Last Admin Trade Name Freq PRN Reason Stop Dose Admin Acetaminophen 650 mg 04/02/22 23:53 04/11/22 17:31 Acetaminophen 325 Mg Tab PO 650 mg Q6H PRN Administration Pain MILD(1-3)/Fever >100.5/FAITH Acetylcysteine 200 mg 04/10/22 16:00 04/12/22 20:19 Acetylcysteine 20% Soln 4ml (200 Mg/Ml) IH Not Given Q8HRT SEGUNDO Acetylcysteine 200 mg 04/13/22 00:00 04/13/22 08:34 Acetylcysteine 10% 100 Mg/1 Ml *For Inhalation Use* INHALATION 04/15/22 00:00 Not Given Q8HRT SEGUNDO Albuterol 2.5 mg 04/06/22 16:00 04/13/22 08:33 Albuterol 2.5 Mg/3 Ml Nebu IH 2.5 mg Q8HRT SEGUNDO Administration Bisacodyl 10 mg 04/07/22 09:44 04/12/22 10:06 Bisacodyl 10 Mg Rect Supp VT 10 mg QDAY PRN Administration Constipation Dextrose 50 ml 04/06/22 17:54 Dextrose 50% In Water (25gm) 50 Ml Syringe IV Q30MIN PRN Hypoglycemia Protocol Docusate Sodium 100 mg 04/03/22 15:00 04/12/22 20:59 Docusate Sodium 100 Mg/10 Ml Oral Liqd PO 100 mg BID SEGUNDO Administration Famotidine 20 mg 04/06/22 10:00 04/12/22 20:59 Famotidine 20 Mg Tab FEEDTUBE 20 mg BID SEGUNDO Administration Fentanyl 50 mcg 04/04/22 15:56 04/13/22 01:45 Fentanyl 100 Mcg/2 Ml Inj IV 50 mcg Q2HR PRN Administration For CPOT of greater than 2 Heparin Sodium (Porcine) 5,000 unit 04/03/22 06:00 04/13/22 05:09 Heparin 5,000 Unit/1 Ml Vial SUB-Q Not Given Q8HR SEGUNDO NORepinephrine/NS 8 MG-250 ML 8 mg in 250 mls @ 3.75 mls/hr 04/02/22 22:00 04/10/22 09:20 Norepinephrine/Ns 8 Mg-250 Ml (Double Conc) IV 0 mcg/min TITRATE SEGUNDO 0 mls/hr Titration Protocol 2 MCG/MIN Dexmedetomidine HCl 400 mcg/ 104 mls @ 2.434 mls/hr 04/03/22 07:00 04/12/22 21:39 Sodium Chloride IV 0.7 mcg/kg/hr TITRATE SEGUNDO 8.518 mls/hr Administration Protocol 0.2 MCG/KG/HR Fentanyl Citrate 2,000 mcg in 100 mls @ 2.34 mls/hr 04/05/22 11:00 04/13/22 06:07 Fentanyl Drip Premix IV 4 mcg/kg/hr TITR SEGUNDO 9.36 mls/hr Administration Protocol 1 MCG/KG/HR Cefepime HCl 2 gm in 100 mls @ 200 mls/hr 04/12/22 13:00 04/13/22 00:19 Cefepime/Ns 2 Gm/100 Ml IV 04/15/22 12:59 200 mls/hr Q12H SEGUNDO Administration Protocol Sodium Phosphate 15 mmol/ 255 mls @ 125 mls/hr 04/13/22 09:00 04/13/22 08:55 Sodium Chloride IV 04/13/22 11:02 125 mls/hr ONCE ONE Administration Insulin Human Regular 0 units 04/06/22 18:00 04/13/22 06:14 Insulin Regular, Human 100 Units/1 Ml SUB-Q Not Given Q6H [facility] Protocol Magnesium Hydroxide 30 ml 04/02/22 23:53 Magnesium Hydroxide (Mom) Oral Liqd Udc PO Q4H PRN Constipation Metoprolol Tartrate 12.5 mg 04/11/22 08:55 04/13/22 05:09 Metoprolol Tartrate 25 Mg Tab FEEDTUBE Not Given Q6HR [facility] Nitroglycerin 0.2 mg 04/11/22 06:00 04/13/22 05:09 Nitroglycerin 0.2 Mg Patch 24hr TD Not Given QDAY@0600 [facility] Ondansetron HCl 4 mg 04/02/22 23:53 Ondansetron 4 Mg/2 Ml Inj IV Q8H PRN Nausea And Vomiting Polyethylene Glycol 17 gm 04/08/22 10:00 04/12/22 10:07 Polyethylene Glycol 3350 17 Gm Powder PO 17 gm QDAY SEGUNDO Administration Quetiapine Fumarate 100 mg 04/12/22 14:00 04/13/22 05:10 Quetiapine 25 Mg Tab PO 100 mg 0600,1600 SEGUNDO Administration Quetiapine Fumarate 50 mg 04/12/22 14:01 04/12/22 20:59 Quetiapine 25 Mg Tab PO 50 mg QHS SEGUNDO Administration Senna 17.6 mg 04/03/22 22:00 04/12/22 20:59 Sennosides Oral Liqd 8.8 Mg/5 Ml Oral Liqd PO 17.6 mg Q12HR SEGUNDO Administration Sodium Chloride 10 ml 04/03/22 10:00 04/12/22 20:59 Sodium Chloride 0.9% 10 Ml Flush Syringe IV 10 ml BID SEGUNDO Administration Sodium Chloride 10 ml 04/02/22 23:53 Sodium Chloride 0.9% 10 Ml Flush Syringe IV PRN PRN LINE FLUSH Nutrition/Malnutrition Assess - Dietary Evaluation Nutrition/Malnutrition Findings: Nutrition Notes Start: 04/04/22 13:13 Freq: Status: Active Protocol: Document 04/06/22 12:38 COLLEEN (Rec: 04/06/22 13:23 COLLEEN [id number]) Nutrition Notes Initial or Follow up Reassessment Current Diagnosis Sepsis,Respiratory Failure, Malnutrition Other Pertinent Diagnosis HAP, HFpEF, Elevated Troponin, ALS, Hypokalemia, Hypotension , ... Current Diet TF-Vital AF 1.2 Inderjit @ 50 ml/hr (since D 04/06) Labs/Tests 04/06: K 3.0, Crea <0.2, Glu 130, Ca 8.1. Pertinent Medications 04/06: KCl 40mEq, others nutritionally unremarkable. Height 5 ft 4.8 in Weight 46.8 kg Cast[place] Body Weight (kg) 61.27 BMI 17.2 Intake Prior to Admission Poor Weight change and time frame No body weight change reported in 2 days. Weight Status Underweight Subjective/Other Information RD consult for routine F/U on TF tolerance/ continuation, and Low BMI assessment. Pt continues TF as prescribed, well tolerated, according to RN. Pt is on Mechanical ventilation, O2 saturation @ 96%, according to Physical Assessment Histroy notes. Pt presents constipation, according to Physical Assessment Histroy notes. Pt is swallow and Chewing impaired, according to Physical Assessment Histroy notes. Pt is alert and oriented, but continues on Mechanical Ventilation, according to Progress notes. Pt's Low BMI seems to correspond to a natural body composition, and not related to a sudden loss of body weight nor chronic malnutrition, since no signs of concern were mentioned in the Physical Assessment History or the Progress notes. Percent of energy/protein needs met: Prescribed TF-Vital AF 1.2 Inderjit @ 50 ml/hr provides for energy/protein needs (1,450 Kcal/91 g) during LOS, 98% Kcal; 100% AA. Burn Absent Trauma Absent GI Symptoms Constipation Difficulty In Swallowing,Chewing Food Allergy No Skin Integrity/Comment Unspecified Area of Concern. Current % PO Other Minimum of two criteria No #1 Nutrition Diagnosis Swallowing difficulty,Biting/ Chewing (masticatory) difficulty Comments: Change Nutrition Diagnostic for precision. Etiology ALS, Mechanical Ventilation. As Evidenced by Signs and Symptoms Pt currently on TF. Is patient on ventilator? Yes Is Patient Ambulatory and/or Out of Bed No REE-([facility]-confined to bed) 4946.243 Calculation Used for Recommendations [facility] Additional Notes Protein: 1.2-2 g/Kg IBW; 73- 122 g/day. Fluids: 1 ml/Kcal, or as per MD. Nutrition Intervention Nutrition Support: Continue TF-Vital AF 1.2 Inderjit @ 50 ml/hr. Flush: 80 ml water Q 4 hr, or as per MD. Kcal 1,450 Protein (gm) 91 Carbohydrates (gm) 134 Fat (gm) 65 Fluid (mL) 980 Fiber (gm) 6 % RDI: 98% Kcal; 100% AA. Goal #1 Provide at least 75% of energy /protein needs through Enteral Feeding during LOS. Goal #2 Maintain body weight within +/ -3% of admission body weight during LOS. Follow-Up By: 04/13/22 Additional Comments Continue monitoring TF tolerance and BM.
[2022-04-08 18:49] LABS: Creatine Kinase MB 2.6 ng/mL (0.0-4.0)
[2022-04-09] MEDS: INSULIN REGULAR, HUMAN 100 UNITS/1 ML SUB-Q SCH ×4 (00:12→17:51)
[2022-04-09] MEDS: ALBUTEROL 2.5 MG/3 ML NEBU IH SCH ×4 (00:33→23:29)
[2022-04-09] MEDS: ACETYLCYSTEINE 20% 200 MG/1 ML *FOR INHALATION USE INHALATION SCH (00:33)
[2022-04-09] MEDS: NORepinephrine/NS 8 MG-250 ML 8 MG/250 ML INFUS..BTL IV SCH (01:30)
[2022-04-09] MEDS: fentaNYL 100 MCG/2 ML INJ IV PRN ×4 (01:30→20:42)
[2022-04-09 05:10] LABS: Hematocrit 29.4 % (35.5-45.6); Hemoglobin 9.9 gm/dl (11.8-15.2); Mean Corpuscular HGB Conc 34 % (32-34); Mean Corpuscular Volume 93 fl (84-94); Platelet Count 131 K/mm3 (140-440); Red Blood Count 3.16 M/mm3 (3.65-5.03); Red Cell Distribution Width 14.2 % (13.2-15.2)
[2022-04-09] MEDS: CEFEPIME/NS 2 GM/100 ML 2 GM/100 ML BAG IV SCH (06:02)
[2022-04-09] MEDS: HEPARIN 5,000 UNIT/1 ML VIAL SUB-Q SCH ×3 (06:03→22:46)
[2022-04-09 06:17] LABS: Blood Urea Nitrogen 10 mg/dL (9-20); Calcium 8.4 mg/dL (8.4-10.2); Hemolysis Index 11
[2022-04-09 06:26] LABS: BUN/Creatinine Ratio 50
[2022-04-09] MEDS: fentaNYL DRIP Premix 2,000 MCG/100 ML BAG IV SCH ×2 (07:01→16:12)
--- NOTE | 2022-04-09 08:53 | Electrocardiograph Report ---
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
[2022-04-09] MEDS: POLYETHYLENE GLYCOL 3350 17 GM POWDER PO SCH (09:03)
[2022-04-09] MEDS: SENNOSIDES ORAL LIQD 8.8 MG/5 ML ORAL LIQD PO SCH ×2 (09:03→22:45)
[2022-04-09] MEDS: DOCUSATE SODIUM 100 MG/10 ML ORAL LIQD PO SCH ×2 (09:03→22:46)
[2022-04-09] MEDS: FAMOTIDINE 20 MG TAB FEEDTUBE SCH ×2 (09:05→22:46)
--- NOTE | 2022-04-09 10:17 | Progress Note ---
Assessment and Plan - Patient Problems (1) Respiratory failure Current Visit: Yes Status: Acute Plan to address problem: Patient presents with acute respiratory failure, with chest x-ray showing total whiteout of the right lung, manifested by an acute pneumonia and overlying large right pleural effusion. Cardiac work-up is notable for the transition change of inferolateral ischemia, but troponin levels are unremarkable. Echocardiogram shows left ventricular ejection fraction 40 to 45%. Patient is not a candidate for aggressive and invasive cardiac evaluation and therapies, due to multiple severe comorbidities and severe right pneumonia with large effusion causing a total whiteout of the right lung. We will recommend empiric therapy with topical nitrates and oral beta-blockers as his blood pressure tolerates. Otherwise, we will continue conservative cardiac follow-up and management. Subjective Date of service: 04/09/22 Principal diagnosis: Acute respiratory failure Interval history: 57-year-old man with history of ALS, admitted with shortness of breath and acute respiratory failure, requiring intubation and mechanical ventilation. He is currently in the ICU, awake, on the vent. He is on fentanyl drip and systolic blood pressure is 127 on very low-dose Levophed. The patient's presenting chest x-ray is markedly abnormal, there is total whiteout of the right lung field, due to pneumonia and associated large pleural effusion. The left lung field is well expanded and relatively clear. The cardiac silhouette is normal size. Cardiac work-up so far: Initial presenting ECG was a sinus tachycardia 125, with no acute ST or T wave abnormalities. However, follow-up next the ECG showed the presence of new, inferolateral T wave inversions. The troponin levels were unremarkable, showing a borderline level of 0.03, unchanged on 3 serial measurements. Echocardiogram done on this presentation shows mild left ventricular dysfunction with ejection fraction 40 to 45%. Objective Vital Signs Temp Pulse Pulse Pulse Resp Resp BP 04/09/22 09:15 75 17 122/76 04/09/22 09:00 85 16 118/59 04/09/22 08:45 78 16 126/74 04/09/22 08:30 77 13 126/76 04/09/22 08:15 77 18 118/82 04/09/22 08:00 98.1 F 78 63 70 14 12 112/77 04/09/22 07:50 60 100/64 04/09/22 07:46 73 17 120/62 04/09/22 07:30 60 12 100/64 04/09/22 07:15 65 12 107/71 04/09/22 07:00 75 16 99/66 04/09/22 06:45 68 14 108/63 04/09/22 06:30 86 27 H 106/75 04/09/22 06:15 73 14 125/72 04/09/22 06:00 79 16 108/75 04/09/22 05:45 78 25 H 108/75 04/09/22 05:30 65 15 111/62 04/09/22 05:15 64 16 110/64 04/09/22 05:00 63 12 105/63 04/09/22 04:45 71 13 111/66 04/09/22 04:35 74 0 L 105/63 04/09/22 04:30 70 12 105/67 04/09/22 04:15 64 14 103/51 04/09/22 04:00 97.5 F L 70 70 14 112/66 04/09/22 03:45 70 14 122/65 04/09/22 03:30 65 15 121/67 04/09/22 03:15 67 14 111/64 04/09/22 03:00 70 16 111/69 04/09/22 02:45 68 14 114/64 04/09/22 02:30 68 13 113/66 04/09/22 02:15 75 15 112/73 04/09/22 02:00 73 15 110/64 04/09/22 01:45 77 14 111/64 04/09/22 01:30 64 12 103/56 04/09/22 01:15 70 13 114/69 04/09/22 01:00 79 14 120/67 04/09/22 00:45 74 16 117/72 04/09/22 00:33 60 12 04/09/22 00:30 61 12 109/67 04/09/22 00:25 60 109/67 04/09/22 00:15 62 13 108/67 04/09/22 00:00 98.6 F 61 61 12 109/66 04/08/22 23:45 61 12 107/67 04/08/22 23:30 60 12 113/67 04/08/22 23:15 67 12 89/44 04/08/22 23:00 62 12 110/64 04/08/22 22:45 62 12 104/62 04/08/22 22:30 61 12 111/65 04/08/22 22:15 59 L 12 119/69 04/08/22 22:00 59 L 12 122/73 04/08/22 21:52 59 L 12 120/70 04/08/22 21:30 59 L 12 120/70 04/08/22 21:00 60 12 114/69 04/08/22 20:30 65 12 115/72 04/08/22 20:00 98.2 F 67 67 14 120/72 04/08/22 19:44 70 128/78 04/08/22 19:30 76 14 128/79 04/08/22 19:00 62 12 105/62 04/08/22 18:30 87 14 121/77 04/08/22 18:20 88 14 127/79 04/08/22 18:10 86 17 131/79 04/08/22 18:00 84 14 131/79 04/08/22 17:50 85 12 102/68 04/08/22 17:40 70 14 124/66 04/08/22 17:30 81 14 124/66 04/08/22 17:20 79 14 120/71 04/08/22 17:10 75 16 112/69 04/08/22 17:00 80 16 112/72 04/08/22 16:55 84 12 04/08/22 16:50 77 16 112/72 04/08/22 16:45 70 120/71 04/08/22 16:40 83 13 117/78 04/08/22 16:30 92 H 14 117/78 04/08/22 16:20 78 12 115/73 04/08/22 16:10 88 14 119/69 04/08/22 16:00 98.9 F 80 82 16 119/69 04/08/22 15:50 89 15 115/73 04/08/22 15:40 89 16 122/72 04/08/22 15:30 93 H 13 122/72 04/08/22 15:20 96 H 15 118/73 04/08/22 15:10 98 H 14 127/78 04/08/22 15:00 101 H 19 127/78 04/08/22 14:50 99 H 16 114/66 04/08/22 14:40 87 15 89/58 04/08/22 14:30 67 14 109/66 04/08/22 14:20 57 L 12 89/58 04/08/22 14:10 63 12 106/66 04/08/22 14:00 58 L 14 106/66 04/08/22 13:50 56 L 14 108/67 04/08/22 13:40 57 L 14 108/66 04/08/22 13:30 55 L 14 109/67 04/08/22 13:20 55 L 14 108/66 04/08/22 13:10 55 L 14 106/65 04/08/22 13:00 55 L 14 106/65 04/08/22 12:50 55 L 14 103/65 04/08/22 12:40 57 L 14 102/65 04/08/22 12:30 55 L 14 106/64 04/08/22 12:20 57 L 14 105/65 04/08/22 12:10 56 L 14 102/65 04/08/22 12:00 99 F 56 L 56 L 14 102/65 04/08/22 11:50 57 L 14 96/58 04/08/22 11:40 59 L 14 99/61 04/08/22 11:30 56 L 14 99/61 04/08/22 11:20 56 L 14 96/60 04/08/22 11:10 60 14 95/59 04/08/22 11:00 62 14 99/60 04/08/22 10:50 61 14 95/59 04/08/22 10:40 59 L 14 99/62 04/08/22 10:30 62 14 99/62 04/08/22 10:20 62 14 98/60 Pulse Ox 04/09/22 09:15 100 04/09/22 09:00 100 04/09/22 08:45 99 04/09/22 08:30 100 04/09/22 08:15 100 04/09/22 08:00 99 04/09/22 07:50 100 04/09/22 07:46 86 04/09/22 07:30 100 04/09/22 07:15 100 04/09/22 07:00 92 04/09/22 06:45 99 04/09/22 06:30 81 L 04/09/22 06:15 93 04/09/22 06:00 88 04/09/22 05:45 97 04/09/22 05:30 100 04/09/22 05:15 100 04/09/22 05:00 100 04/09/22 04:45 100 04/09/22 04:35 100 04/09/22 04:30 100 04/09/22 04:15 100 04/09/22 04:00 99 04/09/22 03:45 99 04/09/22 03:30 100 04/09/22 03:15 100 04/09/22 03:00 100 04/09/22 02:45 100 04/09/22 02:30 100 04/09/22 02:15 100 04/09/22 02:00 100 04/09/22 01:45 100 04/09/22 01:30 100 04/09/22 01:15 100 04/09/22 01:00 100 04/09/22 00:45 100 04/09/22 00:33 04/09/22 00:30 100 04/09/22 00:25 100 04/09/22 00:15 100 04/09/22 00:00 100 04/08/22 23:45 100 04/08/22 23:30 100 04/08/22 23:15 100 04/08/22 23:00 100 04/08/22 22:45 100 04/08/22 22:30 100 04/08/22 22:15 100 04/08/22 22:00 100 04/08/22 21:52 100 04/08/22 21:30 100 04/08/22 21:00 100 04/08/22 20:30 100 04/08/22 20:00 100 04/08/22 19:44 100 04/08/22 19:30 97 04/08/22 19:00 90 04/08/22 18:30 98 04/08/22 18:20 97 04/08/22 18:10 95 04/08/22 18:00 91 04/08/22 17:50 94 04/08/22 17:40 98 04/08/22 17:30 100 04/08/22 17:20 98 04/08/22 17:10 100 04/08/22 17:00 100 04/08/22 16:55 04/08/22 16:50 04/08/22 16:45 04/08/22 16:40 04/08/22 16:30 04/08/22 16:20 04/08/22 16:10 04/08/22 16:00 04/08/22 15:50 96 04/08/22 15:40 04/08/22 15:30 04/08/22 15:20 04/08/22 15:10 04/08/22 15:00 04/08/22 14:50 04/08/22 14:40 04/08/22 14:30 04/08/22 14:20 04/08/22 14:10 04/08/22 14:00 04/08/22 13:50 04/08/22 13:40 04/08/22 13:30 04/08/22 13:20 04/08/22 13:10 04/08/22 13:00 04/08/22 12:50 04/08/22 12:40 04/08/22 12:30 04/08/22 12:20 04/08/22 12:10 04/08/22 12:00 04/08/22 11:50 04/08/22 11:40 04/08/22 11:30 04/08/22 11:20 04/08/22 11:10 04/08/22 11:00 04/08/22 10:50 04/08/22 10:40 04/08/22 10:30 04/08/22 10:20 100 - Physical Examination General: Other (Intubated on mechanical ventilator) HEENT: Positive: PERRL, Normocephaly, Other (ET-tube in place) Neck: Positive: neck supple, trachea midline (intubated). Negative: JVD/HJR Cardiac: Positive: Reg Rate and Rhythm Lungs: Positive: Decreased Breath Sounds Neuro: Positive: Other (Awake, intubated on the vent) Abdomen: Positive: Soft Skin: Positive: Clear Extremities: Present: Other (TR.EDEMA). Absent: edema - Labs and Meds Cardiac Enzymes 04/08/22 04/08/22 Range/Units 11:19 17:47 CK-MB (CK-2) 2.0 2.6 (0.0-4.0) ng/mL CBC 04/09/22 Range/Units 04:35 WBC 11.5 H (4.5-11.0) K/mm3 RBC 3.16 L (3.65-5.03) M/mm3 Hgb 9.9 L (11.8-15.2) gm/dl Hct 29.4 L (35.5-45.6) % Plt Count 131 L (140-440) K/mm3 Comprehensive Metabolic Panel 04/09/22 Range/Units 04:35 Sodium 137 (137-145) mmol/L Potassium 3.9 (3.6-5.0) mmol/L Chloride 97.1 L (98-107) mmol/L Carbon Dioxide 35 H (22-30) mmol/L BUN 10 (9-20) mg/dL Creatinine < 0.2 L (0.8-1.3) mg/dL Glucose 145 H (75-100) mg/dL Calcium 8.4 (8.4-10.2) mg/dL - Allied health notes Allied health notes reviewed: nursing
--- NOTE | 2022-04-09 11:53 | Progress Note ---
Assessment and Plan Cultures: Blood culture bacillus species Sputum culture Pseudomonas, Enterobacter A/P: 57-year-old man past medical history ALS now with: #Acute sepsis: With fevers and leukocytosis. Secondary to pneumonia. #Acute hypoxic respiratory failure: Currently on the vent. #Hospital-acquired pneumonia. Was recently seen at [facility], was initially discharged to home hospice, as such was not given antibiotics. #ALS: Was on home hospice. #Bacillus bacteremia: likely contaminant. Recs: -Goals of care, poor prognosis. -Sputum culture sensitive to cefepime, continue. PLanned 10 days -Follow-up cultures Thank you for the consult, we will continue to follow. Sameer Ojeda MD [facility] O: [phone] F: [phone] Subjective Date of service: 04/09/22 Principal diagnosis: Ac and ch hypercapnic and hypoxemic Resp Failure; ALS; HCAP; Sepsis; NSTEMI Interval history: Afebrile, white count improved to 11.5. Afebrile cultures remain negative. Remains on the vent. Objective - Exam Narrative Exam: Physical Exam: Constitutional: Intubated, sedated Head, Ears, Nose: Normocephalic, atraumatic. External ears, nose normal Eyes: Conjunctivae/corneas clear. No icterus. No ptosis. Neck: Supple, no meningeal signs Oral: Intubated Cardiovascular: S1, S2 normal. Respiratory: Good air entry, clear to auscultation bilaterally GI: Soft, non-tender; bowel sounds normal. No peritoneal signs. Musculoskeletal: No pedal edema, no cyanosis. Skin: No rash or abscess Hem/Lymphatic: No palpable cervical or supraclavicular nodes. No lymphangitis Psych: Mood ok. Affect normal Neurological: Sedated - Constitutional Vitals: Vital Signs Temp Pulse Resp BP Pulse Ox 98.1 F 65 15 122/75 100 04/09/22 08:00 04/09/22 11:15 04/09/22 11:15 04/09/22 11:15 04/09/22 11:15 Temperature -Last 24 Hours Temperature 98.1 F Temperature 97.5 F Temperature 98.6 F Temperature 98.2 F Temperature 98.9 F Temperature 99 F - Labs CBC & Chem 7: 04/09/22 04:35 04/09/22 04:35 Labs: Abnormal lab results 04/08/22 04/08/22 04/08/22 Range/Units 11:19 17:47 18:06 WBC (4.5-11.0) K/mm3 RBC (3.65-5.03) M/mm3 Hgb (11.8-15.2) gm/dl Hct (35.5-45.6) % Plt Count (140-440) K/mm3 Chloride (98-107) mmol/L Carbon Dioxide (22-30) mmol/L Creatinine (0.8-1.3) mg/dL Glucose (75-100) mg/dL POC Glucose 121 H (70-105) mg/dL Total Creatine Kinase 31 L 46 L (55-170) units/L CK-MB (CK-2) Rel Index 6.4 H 5.6 H (0-4) Troponin T 0.030 H 0.031 H (0.00-0.029) ng/mL 04/09/22 04/09/22 Range/Units 04:35 04:35 WBC 11.5 H (4.5-11.0) K/mm3 RBC 3.16 L (3.65-5.03) M/mm3 Hgb 9.9 L (11.8-15.2) gm/dl Hct 29.4 L (35.5-45.6) % Plt Count 131 L (140-440) K/mm3 Chloride 97.1 L (98-107) mmol/L Carbon Dioxide 35 H (22-30) mmol/L Creatinine < 0.2 L (0.8-1.3) mg/dL Glucose 145 H (75-100) mg/dL POC Glucose (70-105) mg/dL Total Creatine Kinase (55-170) units/L CK-MB (CK-2) Rel Index (0-4) Troponin T (0.00-0.029) ng/mL
--- NOTE | 2022-04-09 12:59 | Progress Note ---
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 Protein calorie malnutrition Acute Bronchopneumonia HCAP Hypotension NSTEMI Hypernatremia Acute Metabolic Encephalopathy H/o Amyotrophic Lateral Sclerosis Nonverbal at Baseline Thrombocytopenia Protein Caloric Malnutrition Constipation - will place tracheostomy consult - families ultimate plan is to get him back home; i explained that is more lik carmelo acheived by tracheostomy placement and further weaning but i also stated that he will likely need home ventilatory support - increased set rate back to 14/min due to desaturations and woresening h yupercapnia - will add low dose Seroquel for anxiolysis - nitrate therapy re: ACS - begin Metoprolol once off Levophed as tolerated - COVID-19 PCR negative - continue care as below otherwise; - Keeping PEEP at 8 to optimize alveolar recruitment in the setting of persistent basilar atelectasis while monitoring airway pressures - On going family discussions re goals of care - Daily SAT and SBT assessment as tolerated - continue to wean supplemental oxygen for target O2 sat's > 90% acutely - VAP bundle addressed - continue lung protective strategies - continue bronchodilators with pulmonary hygiene per RT - wean per pulmonary driven protocols otherwise - continue accuchecks with glycemic control per SSI (While critically ill target blood glucose of 140-180 mg/dL; avoid hypoglycemia) - sedation prn for target RASS 0 to -1 - avoid nephrotoxins, renally dose all medications - continue to avoid benzodiazepine's, reduce the possibility of delirium - AB's per ID rec's - prn analgesia per CPOT score - Maintenance of sleep-wake cycle, avoid delirium - continue enteral nutritional support at goal rate as tolerated - G.I. & VTE prophylaxis - PT/OT/ROM exercises - continue mobility protocols for pressure ulcer prophylaxis - Monitor hemodynamics closely - continue other care per attending / other consultants - discharge planning ongoing concurrently COVID SPECIFIC INTERVENTIONS - test pending .... Re-evaluate in am & prn CONDITION: CRITICAL PROGNOSIS: GUARDED CODE STATUS: FULL CODE The high probability of a clinically significant, sudden or life-threatening deterioration of the [respiratory, cardiovascular & neurologic] system(s) required my full and direct attention, intervention and personal management. The aggregate critical care time was [37] minutes without overlap. Time includes spent on; [x] Data Review and interpretation [x] Patient assessment and monitoring of vital signs [x] Documentation [x] Medication orders and management Subjective Date of service: 04/09/22 Principal diagnosis: Ac and ch hypercapnic and hypoxemic Resp Failure; ALS; HCAP; Sepsis; NSTEMI Interval history: Patient is seen today for: Acute and chronic hypercapnic and hypoxemic Respiratory Failure; ALS; HCAP; Sepsis; NSTEMI; AMS; Hypernatremia; Thrombocytopenia; Protein Caloric Malnutrition; Constipation Seen and examined at bedside; 24hour events reviewed; nursing and respiratory care staff consulted; no adverse overnight events reported to me; resting peacefully in bed; remains on MVS; medical management for NSTEMI; and her sister were visiting and care plan explained at length including the indications for a tracheostomy at this stage of the disease. Objective Vital Signs - 12hr 04/09/22 04/09/22 04/09/22 01:00 01:15 01:30 Temperature Pulse Rate 79 70 64 Pulse Rate [ Anterior Bilateral Throughout] Pulse Rate [ From Monitor] Respiratory 14 13 12 Rate Respiratory Rate [Anterior Bilateral Throughout] Blood Pressure 120/67 114/69 103/56 O2 Sat by Pulse 100 100 100 Oximetry 04/09/22 04/09/22 04/09/22 01:45 02:00 02:15 Temperature Pulse Rate 77 73 75 Pulse Rate [ Anterior Bilateral Throughout] Pulse Rate [ From Monitor] Respiratory 14 15 15 Rate Respiratory Rate [Anterior Bilateral Throughout] Blood Pressure 111/64 110/64 112/73 O2 Sat by Pulse 100 100 100 Oximetry 04/09/22 04/09/22 04/09/22 02:30 02:45 03:00 Temperature Pulse Rate 68 68 70 Pulse Rate [ Anterior Bilateral Throughout] Pulse Rate [ From Monitor] Respiratory 13 14 16 Rate Respiratory Rate [Anterior Bilateral Throughout] Blood Pressure 113/66 114/64 111/69 O2 Sat by Pulse 100 100 100 Oximetry 04/09/22 04/09/22 04/09/22 03:15 03:30 03:45 Temperature Pulse Rate 67 65 70 Pulse Rate [ Anterior Bilateral Throughout] Pulse Rate [ From Monitor] Respiratory 14 15 14 Rate Respiratory Rate [Anterior Bilateral Throughout] Blood Pressure 111/64 121/67 122/65 O2 Sat by Pulse 100 100 99 Oximetry 04/09/22 04/09/22 04/09/22 04:00 04:15 04:30 Temperature 97.5 F L Pulse Rate 70 64 70 Pulse Rate [ Anterior Bilateral Throughout] Pulse Rate [ 70 From Monitor] Respiratory 14 14 12 Rate Respiratory Rate [Anterior Bilateral Throughout] Blood Pressure 112/66 103/51 105/67 O2 Sat by Pulse 99 100 100 Oximetry 04/09/22 04/09/22 04/09/22 04:35 04:45 05:00 Temperature Pulse Rate 74 71 63 Pulse Rate [ Anterior Bilateral Throughout] Pulse Rate [ From Monitor] Respiratory 0 L 13 12 Rate Respiratory Rate [Anterior Bilateral Throughout] Blood Pressure 105/63 111/66 105/63 O2 Sat by Pulse 100 100 100 Oximetry 04/09/22 04/09/22 04/09/22 05:15 05:30 05:45 Temperature Pulse Rate 64 65 78 Pulse Rate [ Anterior Bilateral Throughout] Pulse Rate [ From Monitor] Respiratory 16 15 25 H Rate Respiratory Rate [Anterior Bilateral Throughout] Blood Pressure 110/64 111/62 108/75 O2 Sat by Pulse 100 100 97 Oximetry 04/09/22 04/09/22 04/09/22 06:00 06:15 06:30 Temperature Pulse Rate 79 73 86 Pulse Rate [ Anterior Bilateral Throughout] Pulse Rate [ From Monitor] Respiratory 16 14 27 H Rate Respiratory Rate [Anterior Bilateral Throughout] Blood Pressure 108/75 125/72 106/75 O2 Sat by Pulse 88 93 81 L Oximetry 04/09/22 04/09/22 04/09/22 06:45 07:00 07:15 Temperature Pulse Rate 68 75 65 Pulse Rate [ Anterior Bilateral Throughout] Pulse Rate [ From Monitor] Respiratory 14 16 12 Rate Respiratory Rate [Anterior Bilateral Throughout] Blood Pressure 108/63 99/66 107/71 O2 Sat by Pulse 99 92 100 Oximetry 04/09/22 04/09/22 04/09/22 07:30 07:46 07:50 Temperature Pulse Rate 60 73 60 Pulse Rate [ Anterior Bilateral Throughout] Pulse Rate [ From Monitor] Respiratory 12 17 Rate Respiratory Rate [Anterior Bilateral Throughout] Blood Pressure 100/64 120/62 100/64 O2 Sat by Pulse 100 86 100 Oximetry 04/09/22 04/09/22 04/09/22 08:00 08:15 08:30 Temperature 98.1 F Pulse Rate 78 77 77 Pulse Rate [ 63 Anterior Bilateral Throughout] Pulse Rate [ 70 From Monitor] Respiratory 14 18 13 Rate Respiratory 12 Rate [Anterior Bilateral Throughout] Blood Pressure 112/77 118/82 126/76 O2 Sat by Pulse 99 100 100 Oximetry 04/09/22 04/09/22 04/09/22 08:45 09:00 09:15 Temperature Pulse Rate 78 85 75 Pulse Rate [ Anterior Bilateral Throughout] Pulse Rate [ From Monitor] Respiratory 16 16 17 Rate Respiratory Rate [Anterior Bilateral Throughout] Blood Pressure 126/74 118/59 122/76 O2 Sat by Pulse 99 100 100 Oximetry 04/09/22 04/09/22 04/09/22 09:30 09:45 10:00 Temperature Pulse Rate 86 76 78 Pulse Rate [ Anterior Bilateral Throughout] Pulse Rate [ From Monitor] Respiratory 15 16 17 Rate Respiratory Rate [Anterior Bilateral Throughout] Blood Pressure 119/92 127/85 127/85 O2 Sat by Pulse 100 100 100 Oximetry 04/09/22 04/09/22 04/09/22 10:15 10:30 10:45 Temperature Pulse Rate 75 68 72 Pulse Rate [ Anterior Bilateral Throughout] Pulse Rate [ From Monitor] Respiratory 14 14 16 Rate Respiratory Rate [Anterior Bilateral Throughout] Blood Pressure 126/79 117/71 116/74 O2 Sat by Pulse 100 100 100 Oximetry 04/09/22 04/09/22 04/09/22 11:00 11:15 11:30 Temperature Pulse Rate 68 65 61 Pulse Rate [ Anterior Bilateral Throughout] Pulse Rate [ From Monitor] Respiratory 15 15 12 Rate Respiratory Rate [Anterior Bilateral Throughout] Blood Pressure 127/70 122/75 116/71 O2 Sat by Pulse 100 100 100 Oximetry 04/09/22 04/09/22 04/09/22 11:45 12:00 12:16 Temperature 97.8 F Pulse Rate 73 67 79 Pulse Rate [ Anterior Bilateral Throughout] Pulse Rate [ 70 From Monitor] Respiratory 15 14 13 Rate Respiratory Rate [Anterior Bilateral Throughout] Blood Pressure 133/72 118/78 116/80 O2 Sat by Pulse 94 99 100 Oximetry 04/09/22 12:30 Temperature Pulse Rate 63 Pulse Rate [ Anterior Bilateral Throughout] Pulse Rate [ From Monitor] Respiratory Rate Respiratory Rate [Anterior Bilateral Throughout] Blood Pressure 133/72 O2 Sat by Pulse 100 Oximetry Constitutional: no acute distress, alert, other (orally intubated, on full MVS- riding set vent rate) Eyes: non-icteric ENT: oropharynx moist, other (ETT 24 cm TRISTON) Neck: supple, no lymphadenopathy, no JVD, other (RIJ CVL) Effort: mildly labored Ascultation: Bilateral: diminished breath sounds (right lung, base), rhonchi Percussion: Bilateral: not dull Cardiovascular: regular rate and rhythm, other (S1,S2) Gastrointestinal: normoactive bowel sounds, soft, non-tender, non-distended Integumentary: normal Extremities: no cyanosis, no edema, pink and warm, pulses normal Neurologic: pupils equal and round, other (functional quadriplegia) Psychiatric: other (flat affect; sedated) CBC and BMP: 04/09/22 04:35 04/09/22 04:35 ABG, PT/INR, D-dimer: ABG ABG pH 7.379 pH Units (7.350-7.450) 04/08/22 10:25 ABG pCO2 60.1 mm Hg 04/08/22 10:25 ABG pO2 82.1 mm Hg (80.0-90.0) 04/08/22 10:25 ABG O2 Saturation 96.6 % (95.0-99.0) 04/08/22 10:25 PT/INR, D-dimer PT 15.2 Sec. (12.2-14.9) H 04/07/22 03:51 INR 1.08 (0.87-1.13) 04/07/22 03:51 Abnormal lab findings: Abnormal Labs 04/02/22 04/02/22 04/02/22 19:39 19:39 19:39 WBC 14.3 H RBC Hgb Hct MCV 96 H Plt Count 104 L Lymph % (Auto) Meagher % (Auto) Lymph # (Auto) Meagher # (Auto) Seg Neutrophils % Seg Neuts % (Manual) 94.0 H Lymphocytes % (Manual) 1.0 L Seg Neutrophils # Seg Neutrophils # Man 13.4 H Lymphocytes # (Manual) 0.1 L PT 15.9 H INR 1.14 H ABG pH ABG pO2 ABG HCO3 ABG O2 Saturation ABG Base Excess ABG Hemoglobin Oxyhemoglobin Sodium 151 H Potassium Chloride Carbon Dioxide Creatinine 0.5 L Glucose POC Glucose Calcium 8.2 L Phosphorus Magnesium 1.60 L Total Creatine Kinase CK-MB (CK-2) Rel Index Troponin T 0.048 H C-Reactive Protein Total Protein 4.6 L Albumin 2.7 L LDL Cholesterol Direct 27 L Urine WBC (Auto) 04/02/22 04/03/22 04/03/22 19:42 05:14 06:30 WBC RBC Hgb Hct MCV Plt Count Lymph % (Auto) Meagher % (Auto) Lymph # (Auto) Meagher # (Auto) Seg Neutrophils % Seg Neuts % (Manual) Lymphocytes % (Manual) Seg Neutrophils # Seg Neutrophils # Man Lymphocytes # (Manual) PT INR ABG pH 7.471 H 7.496 H ABG pO2 47.8 L 91.0 H ABG HCO3 30.6 H ABG O2 Saturation 94.4 L ABG Base Excess 6.2 H ABG Hemoglobin 11.0 L 12.8 L Oxyhemoglobin 93.1 L Sodium 149 H Potassium 3.4 L Chloride Carbon Dioxide Creatinine 0.4 L Glucose POC Glucose Calcium Phosphorus Magnesium Total Creatine Kinase CK-MB (CK-2) Rel Index Troponin T C-Reactive Protein Total Protein Albumin LDL Cholesterol Direct Urine WBC (Auto) 04/04/22 04/04/22 04/04/22 04:18 04:18 05:50 WBC 11.8 H RBC Hgb Hct MCV Plt Count 132 L Lymph % (Auto) Meagher % (Auto) Lymph # (Auto) Meagher # (Auto) Seg Neutrophils % Seg Neuts % (Manual) Lymphocytes % (Manual) Seg Neutrophils # Seg Neutrophils # Man Lymphocytes # (Manual) PT INR ABG pH 7.517 H ABG pO2 115.5 H ABG HCO3 29.9 H ABG O2 Saturation ABG Base Excess 6.7 H ABG Hemoglobin 12.3 L Oxyhemoglobin Sodium Potassium 3.5 L Chloride Carbon Dioxide 31 H Creatinine 0.3 L Glucose 153 H POC Glucose Calcium Phosphorus 1.40 L Magnesium 1.50 L Total Creatine Kinase CK-MB (CK-2) Rel Index Troponin T C-Reactive Protein 31.60 H Total Protein Albumin LDL Cholesterol Direct Urine WBC (Auto) 04/05/22 04/05/22 04/05/22 02:50 05:25 11:28 WBC RBC Hgb Hct MCV Plt Count Lymph % (Auto) Meagher % (Auto) Lymph # (Auto) Meagher # (Auto) Seg Neutrophils % Seg Neuts % (Manual) Lymphocytes % (Manual) Seg Neutrophils # Seg Neutrophils # Man Lymphocytes # (Manual) PT INR ABG pH 7.455 H ABG pO2 50.7 L ABG HCO3 30.5 H ABG O2 Saturation 89.4 L ABG Base Excess 5.9 H ABG Hemoglobin 11.8 L Oxyhemoglobin 88.2 L Sodium Potassium Chloride Carbon Dioxide 32 H Creatinine 0.2 L Glucose 110 H POC Glucose 124 H Calcium 7.9 L Phosphorus Magnesium Total Creatine Kinase CK-MB (CK-2) Rel Index Troponin T C-Reactive Protein Total Protein Albumin LDL Cholesterol Direct Urine WBC (Auto) 04/05/22 04/05/22 04/06/22 17:45 Unknown 04:00 WBC RBC 3.55 L Hgb 11.1 L 11.5 L Hct 33.2 L 35.1 L MCV Plt Count 113 L 114 L Lymph % (Auto) Meagher % (Auto) Lymph # (Auto) Meagher # (Auto) Seg Neutrophils % Seg Neuts % (Manual) Lymphocytes % (Manual) Seg Neutrophils # Seg Neutrophils # Man Lymphocytes # (Manual) PT INR ABG pH ABG pO2 ABG HCO3 ABG O2 Saturation ABG Base Excess ABG Hemoglobin Oxyhemoglobin Sodium Potassium Chloride Carbon Dioxide Creatinine Glucose POC Glucose Calcium Phosphorus Magnesium Total Creatine Kinase CK-MB (CK-2) Rel Index Troponin T C-Reactive Protein Total Protein Albumin LDL Cholesterol Direct Urine WBC (Auto) 8.0 H 04/06/22 04/06/22 04/07/22 04:00 08:30 00:04 WBC RBC Hgb Hct MCV Plt Count Lymph % (Auto) Meagher % (Auto) Lymph # (Auto) Meagher # (Auto) Seg Neutrophils % Seg Neuts % (Manual) Lymphocytes % (Manual) Seg Neutrophils # Seg Neutrophils # Man Lymphocytes # (Manual) PT INR ABG pH ABG pO2 60.8 L ABG HCO3 30.5 H ABG O2 Saturation 93.3 L ABG Base Excess 4.9 H ABG Hemoglobin 12.4 L Oxyhemoglobin 92.1 L Sodium Potassium 3.0 L Chloride Carbon Dioxide Creatinine < 0.2 L Glucose 130 H POC Glucose 117 H Calcium 8.1 L Phosphorus Magnesium Total Creatine Kinase CK-MB (CK-2) Rel Index Troponin T C-Reactive Protein Total Protein Albumin LDL Cholesterol Direct Urine WBC (Auto) 04/07/22 04/07/22 04/07/22 03:51 03:51 03:51 WBC 14.6 H RBC 3.57 L Hgb 11.1 L Hct 33.2 L MCV Plt Count 118 L Lymph % (Auto) 4.3 L Meagher % (Auto) 8.8 H Lymph # (Auto) 0.6 L Meagher # (Auto) 1.3 H Seg Neutrophils % 86.6 H Seg Neuts % (Manual) Lymphocytes % (Manual) Seg Neutrophils # 12.7 H Seg Neutrophils # Man Lymphocytes # (Manual) PT 15.2 H INR ABG pH ABG pO2 ABG HCO3 ABG O2 Saturation ABG Base Excess ABG Hemoglobin Oxyhemoglobin Sodium 133 L Potassium Chloride 96.0 L Carbon Dioxide 31 H Creatinine 0.2 L Glucose 130 H POC Glucose Calcium 8.0 L Phosphorus Magnesium Total Creatine Kinase CK-MB (CK-2) Rel Index Troponin T C-Reactive Protein Total Protein Albumin LDL Cholesterol Direct Urine WBC (Auto) 04/07/22 04/08/22 04/08/22 04:25 04:49 04:49 WBC 16.1 H RBC 3.54 L Hgb 10.9 L Hct 33.3 L MCV Plt Count Lymph % (Auto) Meagher % (Auto) Lymph # (Auto) Meagher # (Auto) Seg Neutrophils % Seg Neuts % (Manual) Lymphocytes % (Manual) Seg Neutrophils # Seg Neutrophils # Man Lymphocytes # (Manual) PT INR ABG pH ABG pO2 71.0 L ABG HCO3 31.5 H ABG O2 Saturation ABG Base Excess 5.9 H ABG Hemoglobin 11.3 L Oxyhemoglobin Sodium 136 L Potassium Chloride 97.7 L Carbon Dioxide 33 H Creatinine 0.2 L Glucose 155 H POC Glucose Calcium Phosphorus Magnesium Total Creatine Kinase CK-MB (CK-2) Rel Index Troponin T C-Reactive Protein Total Protein Albumin LDL Cholesterol Direct Urine WBC (Auto) 04/08/22 04/08/22 04/08/22 09:53 10:25 11:19 WBC RBC Hgb Hct MCV Plt Count Lymph % (Auto) Meagher % (Auto) Lymph # (Auto) Meagher # (Auto) Seg Neutrophils % Seg Neuts % (Manual) Lymphocytes % (Manual) Seg Neutrophils # Seg Neutrophils # Man Lymphocytes # (Manual) PT INR ABG pH ABG pO2 ABG HCO3 34.7 H ABG O2 Saturation ABG Base Excess 7.9 H ABG Hemoglobin 11.0 L Oxyhemoglobin Sodium Potassium Chloride Carbon Dioxide Creatinine Glucose POC Glucose Calcium Phosphorus Magnesium Total Creatine Kinase 31 L CK-MB (CK-2) Rel Index 6.4 H Troponin T 0.030 H 0.030 H C-Reactive Protein Total Protein Albumin LDL Cholesterol Direct Urine WBC (Auto) 04/08/22 04/08/22 04/09/22 17:47 18:06 04:35 WBC 11.5 H RBC 3.16 L Hgb 9.9 L Hct 29.4 L MCV Plt Count 131 L Lymph % (Auto) Meagher % (Auto) Lymph # (Auto) Meagher # (Auto) Seg Neutrophils % Seg Neuts % (Manual) Lymphocytes % (Manual) Seg Neutrophils # Seg Neutrophils # Man Lymphocytes # (Manual) PT INR ABG pH ABG pO2 ABG HCO3 ABG O2 Saturation ABG Base Excess ABG Hemoglobin Oxyhemoglobin Sodium Potassium Chloride Carbon Dioxide Creatinine Glucose POC Glucose 121 H Calcium Phosphorus Magnesium Total Creatine Kinase 46 L CK-MB (CK-2) Rel Index 5.6 H Troponin T 0.031 H C-Reactive Protein Total Protein Albumin LDL Cholesterol Direct Urine WBC (Auto) 04/09/22 04/09/22 04:35 11:24 WBC RBC Hgb Hct MCV Plt Count Lymph % (Auto) Meagher % (Auto) Lymph # (Auto) Meagher # (Auto) Seg Neutrophils % Seg Neuts % (Manual) Lymphocytes % (Manual) Seg Neutrophils # Seg Neutrophils # Man Lymphocytes # (Manual) PT INR ABG pH ABG pO2 ABG HCO3 ABG O2 Saturation ABG Base Excess ABG Hemoglobin Oxyhemoglobin Sodium Potassium Chloride 97.1 L Carbon Dioxide 35 H Creatinine < 0.2 L Glucose 145 H POC Glucose 147 H Calcium Phosphorus Magnesium Total Creatine Kinase CK-MB (CK-2) Rel Index Troponin T C-Reactive Protein Total Protein Albumin LDL Cholesterol Direct Urine WBC (Auto) Chest x-ray: image reviewed (small volume RLL atelectasis) Allied health notes reviewed: nursing
[2022-04-09 13:35] LABS: ABG Base Excess 10.7 mmol/L (-2.0-3.0); ABG HCO3 38.2 mmol/L (20.0-26.0); ABG Methemoglobin 0.4 % (0.0-1.5); ABG Oxygen Saturation 94.4 % (95.0-99.0); ABG PCO2 68.5 mm Hg; ABG PH 7.364 pH Units (7.350-7.450); ABG PO2 66.6 mm Hg (80.0-90.0)
[2022-04-09] MEDS: METOPROLOL TARTRATE 25 MG TAB PO SCH ×2 (14:45→17:25)
--- NOTE | 2022-04-09 14:56 | Progress Note ---
<MARIOJUAN MarkJose Manuel - Last Filed: 04/09/22 14:52> 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, recently hospitalized at [facility] admitted for acute hypoxemic respiratory failure 2/2 pneumonia Neuro: h/o ALS -Sedated with precedex and fentanyl gtt -RASS goal 0 to -1 -Reorientation as needed -Maintain sleep-wake cycle -As needed analgesia -CT head with no acute intracranial process -Per family patient is nonverbal at baseline but responsive Cardiac: Hypotension, elevated troponin, h/o cardiomyopathy -Cardiology consulted, appreciate recommendations -continue conservative response -Blood pressure monitoring per protocol -Vasopressor support with Levophed -Echocardiogram shows ejection fraction of 40 to 45%, mild global hypokinesis of left ventricle Respiratory: Acute hypoxic respiratory failure -[facility] consulted, appreciate recommendations -Intubated on 04/02 with a 7.50 ETT attempt at the lips -A.m. vent settings: Assist-control/ PRVC TV 400, rate 14, Peep 8, FiO2 30% -See RT notes for titration -Chest US with possible thoracentisis completed -not enough fluid to drain -CPT and mucomyst -A.m. ABG and CXR noted -VAP bundle -SPO2 monitoring GI: Moderate protein calorie malnutrition -24 hours +765 mL -PPI -NTR consulted for tube feedings -BR: Senokot/colace, MiraLAX : Metabolic alkalosis -Strict intake and output -Renally dose medications -Avoid nephrotoxic medications -Daily weights -trend BMP ID: Sepsis, Acute Bronchopneumonia, HAP (Pseudomonas and Enterobacter tracheal aspirate), blood culture with bacillus species -Infectious disease consulted, appreciate recommendation -Per infectious disease patient was recently admitted to [facility] but discharged home with home hospice and not giving antibiotics -Antibiotic therapy with cefepime -Tracheal aspirate with Pseudomonas aeruginosa, Enterobacter aerogenes -04/02 blood culture with bacillus species, 04/05 blood culture NGTD -CRP 31.6, procalcitonin 0.08 -Monitor WBC and temperature curve Endo: NAD -Avoid hypoglycemia -SSI -Accu-Cheks q 6 Heme: Leukocytosis -Heparin subq -Trend CBC -Transfuse hemoglobin less than 7 -Monitor for signs of bleeding -SCDs to BLE while in bed Advance Care Planning - Disease education, care plan, diagnoses, and prognosis were discussed patient's , Carly Lopez, and patient daughter, Kaylee Warren, who translated for #[phone]. They reported that patient was following at [facility] for his ALS and during recent hospitalization at [facility] they were told nothing else can be offered to patient at this time and patient was discharge home with home hospice and PO morphine. First hospice visit was on , 04/01 however, patient became unresponsive 04/02 and they brought in to the hospital. - Goal of care and code status were also addressed at that time. Family wants to wait for a couple days to see how patient respond to current treatment before making a decision. All questions and concerns were addressed at this time. Patient family acknowledged understanding and agreement with care plan. -Patient remains a FULL CODE status. -04/05: Discussion at bedside with interpreting service with Dr. Valdivia and family state they would discuss next steps amongst themselves and let healthcare team know of decisions -04/06: extensive discussion with family ( and son) with Dr. Grayson regarding goals of care -04/08: Extensive discussion with with the use of interpreter deaf line regarding goals of care; no decision made. Possible consult to surgery for trach/PEG early next week. -04/09: Discussion with and her sister with Dr. Grayson and then with Dr. Pineda-> Consulted surgery for trach/peg The high probability of a clinically significant, sudden or life threatening deterioration of the [multiple] system(s) required my full and direct attention, intervention and personal management. The aggregate critical care time was [90] minutes. This time is in addition to time spent performing reported procedures but includes the following: [x] Data Review and interpretation [x] Patient assessment and monitoring of vital signs [x] Documentation [x] Medication orders and management Disposition Plan: icu Total Time Spent with Patient (Minutes): 90 History Interval history: This is a 57-year-old male with ALS who presented to the emergency department on 04/02 with complaints of altered mental status and respiratory distress he was recently discharged home from [facility] with a diagnosis of pneumonia and elevated troponins. Work-up in the emergency department revealed leukocy tosis, elevated troponin and hyponatremia and CXR revealed moderate to large pleural effusion on the right. Patient was having agonal breathing in the emergency department and was intubated. Patient was admitted to the hospitalist service with consults to [facility], cardiology and infectious disease for further work-up. Hospital Course to Date: 04/03: Intubated and Sedated on versed gtt, RASS-5. CT head/brain noted with no acute intracranial abnormality. Plan to initiated precededx gtt and wean off versed for a RASS goal of 0 to -2. CT chect also reviewed, findings are most consistent with acute bronchopneumonia. Continue empiric IV Abx, vent adjustment per CCM. ID consulted. Continue to F/U on cultures. Titrate pressor for MAP above 65. Medical records requested from [facility]. 04/04: Remains stable on the vent, easily arousable on precedex gtt, not followi ng commands. Plan for SAT/SBT today. PRN analgesia for CPOT greater than 3. Fevers improved, cultures and procal pending. Continue current IV abx, ID also consulted. Remains on low dose pressors, titrate pressors for a MAP above 65. 04/05: Long discussion with family with use of translation phone with [facility] regarding goals of care. Family to have meeting amongst themselves and informed care team of decisions. Fentanyl drip added for respiratory distress. Remains on Precedex drip. Antibiotics per ID. Given 2L NS bolus with levophed gtt 04/06: Family discussion with Dr. Grayson for goals of care. CXR shows possible mucus plug, continue CPT as FiO2 is being able to be weaned. Potassium repleted. Weaning fentnyl gtt. 04/07: Ultrasound guided thoracentesis today scheduled, inadequate amount of pleural effusion on so not completed. Patient was started on Levophed overnight which was weaned off this morning however had to be started twice a day. Remains on fentanyl and Precedex. Cardiology discontinued BB and ACEi in setting of hypotension. 04/08: COVID-19 PCR negative. Routine EEG ordered by cardiology which showed ST changes, cardiology aware. They will continue conservative treatment. Repeat troponins 0.030 which are less than admit of 0.048. Dr. Grayson had a long discussion with with the use of interpreter deaf today at bedside and has not made a decision regarding goals of care. Possible consult to surgery for trach/PEG early next week. Continues to require Precedex and fentanyl drip for sedation. Carvedilol/lisinopril discontinued as patient is continuously on Levophed. 04/09: No acute events reported overnight, remains on fentanyl, Precedex and Levophed drips. Dr. Grayson and Dr. Pineda updated family at bedside extensively today. Consulted surgery for trach/PEG. COVID-19 PCR negative. Hospitalist Physical - Constitutional Vitals: Temp Pulse Resp BP Pulse Ox 97.8 F 66 14 122/80 84 04/09/22 12:00 04/09/22 14:45 04/09/22 13:15 04/09/22 13:15 04/09/22 13:15 General appearance: Present: no acute distress, cachectic, other (Intubated, easily arousable on precedex gtt) - EENT Eyes: Present: PERRL, EOM intact ENT: dentition normal - Neck Neck: Present: normal ROM - Respiratory Respiratory effort: normal Respiratory: bilateral: diminished - Cardiovascular Rhythm: regular Heart Sounds: Present: S1 & S2. Absent: systolic murmur, diastolic murmur - Extremities Extremities: no ischemia, pulses intact, pulses symmetrical, No edema, normal temperature, normal color Peripheral Pulses: within normal limits - Abdominal General gastrointestinal: soft, non-tender, non-distended, normal bowel sounds - Integumentary Integumentary: Present: warm, dry - Psychiatric Psychiatric: cooperative - Neurologic Neurologic: CNII-XII intact, focal deficits (does not move BLE) - Allied Health Allied health notes reviewed: nursing, RT, social work HEART Score - HEART Score Troponin: Troponin T 0.031 ng/mL (0.00-0.029) H 04/08/22 17:47 Results - Labs CBC & Chem 7: 04/09/22 04:35 04/09/22 04:35 Labs: Laboratory Last Values WBC 11.5 K/mm3 (4.5-11.0) H 04/09/22 04:35 RBC 3.16 M/mm3 (3.65-5.03) L 04/09/22 04:35 Hgb 9.9 gm/dl (11.8-15.2) L 04/09/22 04:35 Hct 29.4 % (35.5-45.6) L 04/09/22 04:35 MCV 93 fl (84-94) 04/09/22 04:35 MCH 31 pg (28-32) 04/09/22 04:35 MCHC 34 % (32-34) 04/09/22 04:35 RDW 14.2 % (13.2-15.2) 04/09/22 04:35 Plt Count 131 K/mm3 (140-440) L 04/09/22 04:35 Lymph % (Auto) 4.3 % (13.4-35.0) L 04/07/22 03:51 [place] % (Auto) 8.8 % (0.0-7.3) H 04/07/22 03:51 Eos % (Auto) 0.1 % (0.0-4.3) 04/07/22 03:51 Baso % (Auto) 0.2 % (0.0-1.8) 04/07/22 03:51 Lymph # (Auto) 0.6 K/mm3 (1.2-5.4) L 04/07/22 03:51 [place] # (Auto) 1.3 K/mm3 (0.0-0.8) H 04/07/22 03:51 Eos # (Auto) 0.0 K/mm3 (0.0-0.4) 04/07/22 03:51 Baso # (Auto) 0.0 K/mm3 (0.0-0.1) 04/07/22 03:51 Add Manual Diff Complete 04/02/22 19:39 Total Counted 100 04/02/22 19:39 Seg Neutrophils % 86.6 % (40.0-70.0) H 04/07/22 03:51 Seg Neuts % (Manual) 94.0 % (40.0-70.0) H 04/02/22 19:39 Band Neutrophils % 0 % 04/02/22 19:39 Lymphocytes % (Manual) 1.0 % (13.4-35.0) L 04/02/22 19:39 Reactive Lymphs % (Man) 0 % 04/02/22 19:39 Monocytes % (Manual) 5.0 % (0.0-7.3) 04/02/22 19:39 Eosinophils % (Manual) 0 % (0.0-4.3) 04/02/22 19:39 Basophils % (Manual) 0 % (0.0-1.8) 04/02/22 19:39 Metamyelocytes % 0 % 04/02/22 19:39 Myelocytes % 0 % 04/02/22 19:39 Promyelocytes % 0 % 04/02/22 19:39 Blast Cells % 0 % 04/02/22 19:39 Nucleated RBC % Not Reportable 04/02/22 19:39 Seg Neutrophils # 12.7 K/mm3 (1.8-7.7) H 04/07/22 03:51 Seg Neutrophils # Man 13.4 K/mm3 (1.8-7.7) H 04/02/22 19:39 Band Neutrophils # 0.0 K/mm3 04/02/22 19:39 Lymphocytes # (Manual) 0.1 K/mm3 (1.2-5.4) L 04/02/22 19:39 Abs React Lymphs (Man) 0.0 K/mm3 04/02/22 19:39 Monocytes # (Manual) 0.7 K/mm3 (0.0-0.8) 04/02/22 19:39 Eosinophils # (Manual) 0.0 K/mm3 (0.0-0.4) 04/02/22 19:39 Basophils # (Manual) 0.0 K/mm3 (0.0-0.1) 04/02/22 19:39 Metamyelocytes # 0.0 K/mm3 04/02/22 19:39 Myelocytes # 0.0 K/mm3 04/02/22 19:39 Promyelocytes # 0.0 K/mm3 04/02/22 19:39 Blast Cells # 0.0 K/mm3 04/02/22 19:39 WBC Morphology Not Reportable 04/02/22 19:39 Hypersegmented Neuts Not Reportable 04/02/22 19:39 Hyposegmented Neuts Not Reportable 04/02/22 19:39 Hypogranular Neuts Not Reportable 04/02/22 19:39 Smudge Cells Not Reportable 04/02/22 19:39 Toxic Granulation Not Reportable 04/02/22 19:39 Toxic Vacuolation Not Reportable 04/02/22 19:39 Dohle Bodies Not Reportable 04/02/22 19:39 Pelger-Huet Anomaly Not Reportable 04/02/22 19:39 Terry Rods Not Reportable 04/02/22 19:39 Platelet Estimate Consistent w auto 04/02/22 19:39 Clumped Platelets Not Reportable 04/02/22 19:39 Plt Clumps, EDTA Not Reportable 04/02/22 19:39 Large Platelets Not Reportable 04/02/22 19:39 Giant Platelets Not Reportable 04/02/22 19:39 Platelet Satelliting Not Reportable 04/02/22 19:39 Plt Morphology Comment Not Reportable 04/02/22 19:39 RBC Morphology Not Reportable 04/02/22 19:39 Dimorphic RBCs Not Reportable 04/02/22 19:39 Polychromasia Not Reportable 04/02/22 19:39 Hypochromasia Not Reportable 04/02/22 19:39 Poikilocytosis Not Reportable 04/02/22 19:39 Anisocytosis 1+ 04/02/22 19:39 Microcytosis Not Reportable 04/02/22 19:39 Macrocytosis Not Reportable 04/02/22 19:39 Spherocytes Not Reportable 04/02/22 19:39 Pappenheimer Bodies Not Reportable 04/02/22 19:39 Sickle Cells Not Reportable 04/02/22 19:39 Target Cells Not Reportable 04/02/22 19:39 Tear Drop Cells Not Reportable 04/02/22 19:39 Ovalocytes Not Reportable 04/02/22 19:39 Helmet Cells Not Reportable 04/02/22 19:39 Patricio-Spaulding Bodies Not Reportable 04/02/22 19:39 [place] Rings Not Reportable 04/02/22 19:39 Cheikh Cells Not Reportable 04/02/22 19:39 Bite Cells Not Reportable 04/02/22 19:39 Crenated Cell Not Reportable 04/02/22 19:39 Elliptocytes Not Reportable 04/02/22 19:39 Acanthocytes (Spur) Not Reportable 04/02/22 19:39 Rouleaux Not Reportable 04/02/22 19:39 Hemoglobin C Crystals Not Reportable 04/02/22 19:39 Schistocytes Not Reportable 04/02/22 19:39 Malaria parasites Not Reportable 04/02/22 19:39 [place] Bodies Not Reportable 04/02/22 19:39 Hem Pathologist Commnt No 04/02/22 19:39 PT 15.2 Sec. (12.2-14.9) H 04/07/22 03:51 INR 1.08 (0.87-1.13) 04/07/22 03:51 APTT 35.7 Sec. (24.2-36.6) 04/07/22 03:51 ABG pH 7.364 pH Units (7.350-7.450) 04/09/22 13:00 ABG pCO2 68.5 mm Hg 04/09/22 13:00 ABG pO2 66.6 mm Hg (80.0-90.0) L 04/09/22 13:00 ABG HCO3 38.2 mmol/L (20.0-26.0) H 04/09/22 13:00 ABG O2 Saturation 94.4 % (95.0-99.0) L 04/09/22 13:00 ABG O2 Content 14.0 (0.0-44) 04/09/22 13:00 ABG Base Excess 10.7 mmol/L (-2.0-3.0) H 04/09/22 13:00 ABG Hemoglobin 10.7 gm/dl (14.0-18.0) L 04/09/22 13:00 ABG Carboxyhemoglobin 1.3 % (0.0-5.0) 04/09/22 13:00 ABG Methemoglobin 0.4 % (0.0-1.5) 04/09/22 13:00 Oxyhemoglobin 92.8 % (95.0-99.0) L 04/09/22 13:00 FiO2 30 % 04/09/22 13:00 Sodium 137 mmol/L (137-145) 04/09/22 04:35 Potassium 3.9 mmol/L (3.6-5.0) 04/09/22 04:35 Chloride 97.1 mmol/L (98-107) L 04/09/22 04:35 Carbon Dioxide 35 mmol/L (22-30) H 04/09/22 04:35 Anion Gap 9 mmol/L 04/09/22 04:35 BUN 10 mg/dL (9-20) 04/09/22 04:35 Creatinine < 0.2 mg/dL (0.8-1.3) L 04/09/22 04:35 Estimated GFR > 60 ml/min 04/09/22 04:35 BUN/Creatinine Ratio 50 % 04/09/22 04:35 Glucose 145 mg/dL (75-100) H 04/09/22 04:35 POC Glucose 147 mg/dL (70-105) H 04/09/22 11:24 Lactic Acid 1.90 mmol/L (0.7-2.0) 04/02/22 19:39 Calcium 8.4 mg/dL (8.4-10.2) 04/09/22 04:35 Phosphorus 3.50 mg/dL (2.5-4.5) D 04/05/22 02:50 Magnesium 2.00 mg/dL (1.7-2.3) 04/05/22 02:50 Total Bilirubin 0.80 mg/dL (0.1-1.2) 04/02/22 19:39 AST 15 units/L (5-40) 04/02/22 19:39 ALT 9 units/L (7-56) 04/02/22 19:39 Alkaline Phosphatase 43 units/L (35-129) 04/02/22 19:39 Total Creatine Kinase 46 units/L (55-170) L 04/08/22 17:47 CK-MB (CK-2) 2.6 ng/mL (0.0-4.0) 04/08/22 17:47 CK-MB (CK-2) Rel Index 5.6 (0-4) H 04/08/22 17:47 Troponin T 0.031 ng/mL (0.00-0.029) H 04/08/22 17:47 C-Reactive Protein 31.60 mg/dL (0.00-1.30) H 04/04/22 04:18 Total Protein 4.6 g/dL (6.3-8.2) L 04/02/22 19:39 Albumin 2.7 g/dL (3.9-5) L 04/02/22 19:39 Albumin/Globulin Ratio 1.4 % 04/02/22 19:39 Triglycerides 80 mg/dL (2-149) 04/02/22 19:39 Cholesterol 94 mg/dL (50-199) 04/02/22 19:39 LDL Cholesterol Direct 27 mg/dL (50-130) L 04/02/22 19:39 HDL Cholesterol 47 mg/dL (40-59) 04/02/22 19:39 Cholesterol/HDL Ratio 2.00 % 04/02/22 19:39 Procalcitonin 0.08 ng/mL (<0.15) 04/04/22 04:18 Urine Color Aracely (Yellow) 04/05/22 17:45 Urine Turbidity Cloudy (Clear) 04/05/22 17:45 Urine pH 5.0 (5.0-7.0) 04/05/22 17:45 Ur Specific [place] 1.021 (1.003-1.030) 04/05/22 17:45 Urine Protein 30 mg/dl mg/dL (Negative) 04/05/22 17:45 Urine Glucose (UA) Neg mg/dL (Negative) 04/05/22 17:45 Urine Ketones Tr mg/dL (Negative) 04/05/22 17:45 Urine Blood Sm (Negative) 04/05/22 17:45 Urine Nitrite Neg (Negative) 04/05/22 17:45 Urine Bilirubin Neg (Negative) 04/05/22 17:45 Urine Urobilinogen < 2.0 mg/dL (<2.0) 04/05/22 17:45 Ur Leukocyte Esterase Tr (Negative) 04/05/22 17:45 Urine WBC (Auto) 8.0 /HPF (0.0-6.0) H 04/05/22 17:45 Urine RBC (Auto) 3.0 /HPF (0.0-6.0) 04/05/22 17:45 U Epithel Cells (Auto) 2.0 /HPF (0-13.0) 04/05/22 17:45 Urine Bacteria (Auto) 1+ /HPF (Negative) 04/02/22 Unknown Hyaline Casts 1 /LPF 04/05/22 17:45 Urine Mucus 3+ /HPF 04/05/22 17:45 Nasal Screen MRSA (PCR) Negative (Negative) 04/05/22 12:37 Vancomycin Trough 6.0 ug/mL (5.0-20.0) 04/05/22 18:53 Coronavirus (PCR) Negative (Negative) 04/07/22 14:52 Microbiology: Microbiology 04/05/22 18:53 Peripheral/Venous Blood Culture - Preliminary NO GROWTH AFTER 72 HOURS 04/05/22 18:53 Peripheral/Venous Blood Culture - Preliminary NO GROWTH AFTER 72 HOURS Perez/IV: Voiding Method Indwelling Catheter Active Medications - Current Medications Current Medications: Generic Name Dose Route Start Last Admin Trade Name Freq PRN Reason Stop Dose Admin Acetaminophen 650 mg 04/02/22 23:53 04/08/22 09:33 Acetaminophen 325 Mg Tab PO 650 mg Q6H PRN Administration Pain MILD(1-3)/Fever >100.5/FAITH Albuterol 2.5 mg 04/06/22 16:00 04/09/22 07:50 Albuterol 2.5 Mg/3 Ml Nebu IH 2.5 mg Q8HRT SEGUNDO Administration Bisacodyl 10 mg 04/07/22 09:44 Bisacodyl 10 Mg Rect Supp OH QDAY PRN Constipation Dextrose 50 ml 04/06/22 17:54 Dextrose 50% In Water (25gm) 50 Ml Syringe IV Q30MIN PRN Hypoglycemia Protocol Docusate Sodium 100 mg 04/03/22 15:00 04/09/22 09:03 Docusate Sodium 100 Mg/10 Ml Oral Liqd PO 100 mg BID SEGUNDO Administration Famotidine 20 mg 04/06/22 10:00 04/09/22 09:05 Famotidine 20 Mg Tab FEEDTUBE 20 mg BID SEGUNDO Administration Fentanyl 50 mcg 04/04/22 15:56 04/09/22 12:48 Fentanyl 100 Mcg/2 Ml Inj IV 50 mcg Q2HR PRN Administration For CPOT of greater than 2 Heparin Sodium (Porcine) 5,000 unit 04/03/22 06:00 04/09/22 06:03 Heparin 5,000 Unit/1 Ml Vial SUB-Q 5,000 unit Q8HR SEGUNDO Administration NORepinephrine/NS 8 MG-250 ML 8 mg in 250 mls @ 3.75 mls/hr 04/02/22 22:00 04/09/22 13:00 Norepinephrine/Ns 8 Mg-250 Ml (Double Conc) IV 6 mcg/min TITRATE SEGUNDO 11.25 mls/hr Titration Protocol 2 MCG/MIN Dexmedetomidine HCl 400 mcg/ 104 mls @ 2.434 mls/hr 04/03/22 07:00 04/09/22 13:41 Sodium Chloride IV 1.2 mcg/kg/hr TITRATE SEGUNDO 14.602 mls/hr Administration Protocol 0.2 MCG/KG/HR Cefepime HCl 2 gm in 100 mls @ 200 mls/hr 04/03/22 18:00 04/09/22 06:02 Cefepime/Ns 2 Gm/100 Ml IV 200 mls/hr Q12H SEGUNDO Administration Protocol Fentanyl Citrate 2,000 mcg in 100 mls @ 2.34 mls/hr 04/05/22 11:00 04/09/22 07:01 Fentanyl Drip Premix IV 4 mcg/kg/hr TITR SEGUNDO 9.36 mls/hr Administration Protocol 1 MCG/KG/HR Insulin Human Regular 0 units 04/06/22 18:00 04/09/22 11:30 Insulin Regular, Human 100 Units/1 Ml SUB-Q Not Given Q6H [facility] Protocol Magnesium Hydroxide 30 ml 04/02/22 23:53 Magnesium Hydroxide (Mom) Oral Liqd Udc PO Q4H PRN Constipation Metoprolol Tartrate 12.5 mg 04/09/22 14:00 04/09/22 14:45 Metoprolol Tartrate 25 Mg Tab PO Not Given Q6HR [facility] Nitroglycerin 0.2 mg 04/10/22 06:00 Nitroglycerin 0.1 Mg Patch 24hr TD QDAY@0600 [facility] Ondansetron HCl 4 mg 04/02/22 23:53 Ondansetron 4 Mg/2 Ml Inj IV Q8H PRN Nausea And Vomiting Polyethylene Glycol 17 gm 04/08/22 10:00 04/09/22 09:03 Polyethylene Glycol 3350 17 Gm Powder PO 17 gm QDAY SEGUNDO Administration Senna 17.6 mg 04/03/22 22:00 04/09/22 09:03 Sennosides Oral Liqd 8.8 Mg/5 Ml Oral Liqd PO 17.6 mg Q12HR SEGUNDO Administration Sodium Chloride 10 ml 04/03/22 10:00 04/09/22 09:05 Sodium Chloride 0.9% 10 Ml Flush Syringe IV 10 ml BID SEGUNDO Administration Sodium Chloride 10 ml 04/02/22 23:53 Sodium Chloride 0.9% 10 Ml Flush Syringe IV PRN PRN LINE FLUSH Nutrition/Malnutrition Assess - Dietary Evaluation Nutrition/Malnutrition Findings: Nutrition Notes Start: 04/04/22 13:13 Freq: Status: Active Protocol: Document 04/06/22 12:38 COLLEEN (Rec: 04/06/22 13:23 COLLEEN [id number]) Nutrition Notes Initial or Follow up Reassessment Current Diagnosis Sepsis,Respiratory Failure, Malnutrition Other Pertinent Diagnosis HAP, HFpEF, Elevated Troponin, ALS, Hypokalemia, Hypotension , ... Current Diet TF-Vital AF 1.2 Inderjit @ 50 ml/hr (since D 04/06) Labs/Tests 04/06: K 3.0, Crea <0.2, Glu 130, Ca 8.1. Pertinent Medications 04/06: KCl 40mEq, others nutritionally unremarkable. Height 5 ft 4.8 in Weight 46.8 kg [place] Body Weight (kg) 61.27 BMI 17.2 Intake Prior to Admission Poor Weight change and time frame No body weight change reported in 2 days. Weight Status Underweight Subjective/Other Information RD consult for routine F/U on TF tolerance/ continuation, and Low BMI assessment. Pt continues TF as prescribed, well tolerated, according to RN. Pt is on Mechanical ventilation, O2 saturation @ 96%, according to Physical Assessment Histroy notes. Pt presents constipation, according to Physical Assessment Histroy notes. Pt is swallow and Chewing impaired, according to Physical Assessment Histroy notes. Pt is alert and oriented, but continues on Mechanical Ventilation, according to Progress notes. Pt's Low BMI seems to correspond to a natural body composition, and not related to a sudden loss of body weight nor chronic malnutrition, since no signs of concern were mentioned in the Physical Assessment History or the Progress notes. Percent of energy/protein needs met: Prescribed TF-Vital AF 1.2 Inderjit @ 50 ml/hr provides for energy/protein needs (1,450 Kcal/91 g) during LOS, 98% Kcal; 100% AA. Burn Absent Trauma Absent GI Symptoms Constipation Difficulty In Swallowing,Chewing Food Allergy No Skin Integrity/Comment Unspecified Area of Concern. Current % PO Other Minimum of two criteria No #1 Nutrition Diagnosis Swallowing difficulty,Biting/ Chewing (masticatory) difficulty Comments: Change Nutrition Diagnostic for precision. Etiology ALS, Mechanical Ventilation. As Evidenced by Signs and Symptoms Pt currently on TF. Is patient on ventilator? Yes Is Patient Ambulatory and/or Out of Bed No REE-([facility]-confined to bed) [phone] Calculation Used for Recommendations [facility] Additional Notes Protein: 1.2-2 g/Kg IBW; 73- 122 g/day. Fluids: 1 ml/Kcal, or as per MD. Nutrition Intervention Nutrition Support: Continue TF-Vital AF 1.2 Inderjit @ 50 ml/hr. Flush: 80 ml water Q 4 hr, or as per MD. Kcal 1,450 Protein (gm) 91 Carbohydrates (gm) 134 Fat (gm) 65 Fluid (mL) 980 Fiber (gm) 6 % RDI: 98% Kcal; 100% AA. Goal #1 Provide at least 75% of energy /protein needs through Enteral Feeding during LOS. Goal #2 Maintain body weight within +/ -3% of admission body weight during LOS. Follow-Up By: 04/13/22 Additional Comments Continue monitoring TF tolerance and BM. <NORM GRAYSON - Last Filed: 04/13/22 10:19> Assessment and Plan Assessment and plan: I saw and evaluated the patient. Discussed with the nurse practitioner and agree with their findings and plan as documented in this note. Hospitalist Physical - Constitutional Vitals: Temp Pulse Resp BP Pulse Ox 98 F 110 H 18 131/87 96 04/13/22 08:00 04/13/22 08:34 04/13/22 08:34 04/13/22 08:15 04/13/22 08:15 HEART Score - HEART Score Troponin: Troponin T 0.031 ng/mL (0.00-0.029) H 04/08/22 17:47 Results - Labs CBC & Chem 7: 04/13/22 04:30 04/13/22 04:30 Labs: Laboratory Last Values WBC 14.1 K/mm3 (4.5-11.0) H 04/13/22 04:30 RBC 2.66 M/mm3 (3.65-5.03) L 04/13/22 04:30 Hgb 8.4 gm/dl (11.8-15.2) L 04/13/22 04:30 Hct 25.5 % (35.5-45.6) L 04/13/22 04:30 MCV 96 fl (84-94) H 04/13/22 04:30 MCH 32 pg (28-32) 04/13/22 04:30 MCHC 33 % (32-34) 04/13/22 04:30 RDW 13.9 % (13.2-15.2) 04/13/22 04:30 Plt Count 245 K/mm3 (140-440) 04/13/22 04:30 Lymph % (Auto) 4.3 % (13.4-35.0) L 04/07/22 03:51 [place] % (Auto) 8.8 % (0.0-7.3) H 04/07/22 03:51 Eos % (Auto) 0.1 % (0.0-4.3) 04/07/22 03:51 Baso % (Auto) 0.2 % (0.0-1.8) 04/07/22 03:51 Lymph # (Auto) 0.6 K/mm3 (1.2-5.4) L 04/07/22 03:51 [place] # (Auto) 1.3 K/mm3 (0.0-0.8) H 04/07/22 03:51 Eos # (Auto) 0.0 K/mm3 (0.0-0.4) 04/07/22 03:51 Baso # (Auto) 0.0 K/mm3 (0.0-0.1) 04/07/22 03:51 Add Manual Diff Complete 04/02/22 19:39 Total Counted 100 04/02/22 19:39 Seg Neutrophils % 86.6 % (40.0-70.0) H 04/07/22 03:51 Seg Neuts % (Manual) 94.0 % (40.0-70.0) H 04/02/22 19:39 Band Neutrophils % 0 % 04/02/22 19:39 Lymphocytes % (Manual) 1.0 % (13.4-35.0) L 04/02/22 19:39 Reactive Lymphs % (Man) 0 % 04/02/22 19:39 Monocytes % (Manual) 5.0 % (0.0-7.3) 04/02/22 19:39 Eosinophils % (Manual) 0 % (0.0-4.3) 04/02/22 19:39 Basophils % (Manual) 0 % (0.0-1.8) 04/02/22 19:39 Metamyelocytes % 0 % 04/02/22 19:39 Myelocytes % 0 % 04/02/22 19:39 Promyelocytes % 0 % 04/02/22 19:39 Blast Cells % 0 % 04/02/22 19:39 Nucleated RBC % Not Reportable 04/02/22 19:39 Seg Neutrophils # 12.7 K/mm3 (1.8-7.7) H 04/07/22 03:51 Seg Neutrophils # Man 13.4 K/mm3 (1.8-7.7) H 04/02/22 19:39 Band Neutrophils # 0.0 K/mm3 04/02/22 19:39 Lymphocytes # (Manual) 0.1 K/mm3 (1.2-5.4) L 04/02/22 19:39 Abs React Lymphs (Man) 0.0 K/mm3 04/02/22 19:39 Monocytes # (Manual) 0.7 K/mm3 (0.0-0.8) 04/02/22 19:39 Eosinophils # (Manual) 0.0 K/mm3 (0.0-0.4) 04/02/22 19:39 Basophils # (Manual) 0.0 K/mm3 (0.0-0.1) 04/02/22 19:39 Metamyelocytes # 0.0 K/mm3 04/02/22 19:39 Myelocytes # 0.0 K/mm3 04/02/22 19:39 Promyelocytes # 0.0 K/mm3 04/02/22 19:39 Blast Cells # 0.0 K/mm3 04/02/22 19:39 WBC Morphology Not Reportable 04/02/22 19:39 Hypersegmented Neuts Not Reportable 04/02/22 19:39 Hyposegmented Neuts Not Reportable 04/02/22 19:39 Hypogranular Neuts Not Reportable 04/02/22 19:39 Smudge Cells Not Reportable 04/02/22 19:39 Toxic Granulation Not Reportable 04/02/22 19:39 Toxic Vacuolation Not Reportable 04/02/22 19:39 Dohle Bodies Not Reportable 04/02/22 19:39 Pelger-Huet Anomaly Not Reportable 04/02/22 19:39 Terry Rods Not Reportable 04/02/22 19:39 Platelet Estimate Consistent w auto 04/02/22 19:39 Clumped Platelets Not Reportable 04/02/22 19:39 Plt Clumps, EDTA Not Reportable 04/02/22 19:39 Large Platelets Not Reportable 04/02/22 19:39 Giant Platelets Not Reportable 04/02/22 19:39 Platelet Satelliting Not Reportable 04/02/22 19:39 Plt Morphology Comment Not Reportable 04/02/22 19:39 RBC Morphology Not Reportable 04/02/22 19:39 Dimorphic RBCs Not Reportable 04/02/22 19:39 Polychromasia Not Reportable 04/02/22 19:39 Hypochromasia Not Reportable 04/02/22 19:39 Poikilocytosis Not Reportable 04/02/22 19:39 Anisocytosis 1+ 04/02/22 19:39 Microcytosis Not Reportable 04/02/22 19:39 Macrocytosis Not Reportable 04/02/22 19:39 Spherocytes Not Reportable 04/02/22 19:39 Pappenheimer Bodies Not Reportable 04/02/22 19:39 Sickle Cells Not Reportable 04/02/22 19:39 Target Cells Not Reportable 04/02/22 19:39 Tear Drop Cells Not Reportable 04/02/22 19:39 Ovalocytes Not Reportable 04/02/22 19:39 Helmet Cells Not Reportable 04/02/22 19:39 Patricio-Spaulding Bodies Not Reportable 04/02/22 19:39 [place] Rings Not Reportable 04/02/22 19:39 Graff Cells Not Reportable 04/02/22 19:39 Bite Cells Not Reportable 04/02/22 19:39 Crenated Cell Not Reportable 04/02/22 19:39 Elliptocytes Not Reportable 04/02/22 19:39 Acanthocytes (Spur) Not Reportable 04/02/22 19:39 Rouleaux Not Reportable 04/02/22 19:39 Hemoglobin C Crystals Not Reportable 04/02/22 19:39 Schistocytes Not Reportable 04/02/22 19:39 Malaria parasites Not Reportable 04/02/22 19:39 [place] Bodies Not Reportable 04/02/22 19:39 Hem Pathologist Commnt No 04/02/22 19:39 PT 13.6 Sec. (12.2-14.9) 04/13/22 04:30 INR 0.94 (0.87-1.13) 04/13/22 04:30 APTT 35.7 Sec. (24.2-36.6) 04/07/22 03:51 ABG pH 7.360 pH Units (7.350-7.450) 04/11/22 16:20 ABG pCO2 73.3 mm Hg 04/11/22 16:20 ABG pO2 57.8 mm Hg (80.0-90.0) L 04/11/22 16:20 ABG HCO3 40.5 mmol/L (20.0-26.0) H 04/11/22 16:20 ABG O2 Saturation 90.6 % (95.0-99.0) L 04/11/22 16:20 ABG O2 Content 13.2 (0.0-44) 04/11/22 16:20 ABG Base Excess 12.6 mmol/L (-2.0-3.0) H 04/11/22 16:20 ABG Hemoglobin 10.5 gm/dl (14.0-18.0) L 04/11/22 16:20 ABG Carboxyhemoglobin 1.4 % (0.0-5.0) 04/11/22 16:20 ABG Methemoglobin 0.4 % (0.0-1.5) 04/11/22 16:20 Oxyhemoglobin 89.0 % (95.0-99.0) L 04/11/22 16:20 FiO2 75 % 04/11/22 16:20 Sodium 139 mmol/L (137-145) 04/13/22 04:30 Potassium 4.5 mmol/L (3.6-5.0) 04/13/22 04:30 Chloride 93.9 mmol/L (98-107) L 04/13/22 04:30 Carbon Dioxide 39 mmol/L (22-30) H 04/13/22 04:30 Anion Gap 11 mmol/L 04/13/22 04:30 BUN 16 mg/dL (9-20) 04/13/22 04:30 Creatinine < 0.2 mg/dL (0.8-1.3) L 04/13/22 04:30 Estimated GFR > 60 ml/min 04/13/22 04:30 BUN/Creatinine Ratio 80 % 04/13/22 04:30 Glucose 95 mg/dL (75-100) 04/13/22 04:30 POC Glucose 107 mg/dL (70-105) H 04/12/22 23:39 Lactic Acid 1.90 mmol/L (0.7-2.0) 04/02/22 19:39 Calcium 8.5 mg/dL (8.4-10.2) 04/13/22 04:30 Phosphorus 1.90 mg/dL (2.5-4.5) L 04/13/22 04:30 Magnesium 1.90 mg/dL (1.7-2.3) 04/13/22 04:30 Total Bilirubin 0.80 mg/dL (0.1-1.2) 04/02/22 19:39 AST 15 units/L (5-40) 04/02/22 19:39 ALT 9 units/L (7-56) 04/02/22 19:39 Alkaline Phosphatase 43 units/L (35-129) 04/02/22 19:39 Total Creatine Kinase 46 units/L (55-170) L 04/08/22 17:47 CK-MB (CK-2) 2.6 ng/mL (0.0-4.0) 04/08/22 17:47 CK-MB (CK-2) Rel Index 5.6 (0-4) H 04/08/22 17:47 Troponin T 0.031 ng/mL (0.00-0.029) H 04/08/22 17:47 C-Reactive Protein 31.60 mg/dL (0.00-1.30) H 04/04/22 04:18 Total Protein 4.6 g/dL (6.3-8.2) L 04/02/22 19:39 Albumin 2.7 g/dL (3.9-5) L 04/02/22 19:39 Albumin/Globulin Ratio 1.4 % 04/02/22 19:39 Triglycerides 80 mg/dL (2-149) 04/02/22 19:39 Cholesterol 94 mg/dL (50-199) 04/02/22 19:39 LDL Cholesterol Direct 27 mg/dL (50-130) L 04/02/22 19:39 HDL Cholesterol 47 mg/dL (40-59) 04/02/22 19:39 Cholesterol/HDL Ratio 2.00 % 04/02/22 19:39 Procalcitonin 0.08 ng/mL (<0.15) 04/04/22 04:18 Urine Color Aracely (Yellow) 04/05/22 17:45 Urine Turbidity Cloudy (Clear) 04/05/22 17:45 Urine pH 5.0 (5.0-7.0) 04/05/22 17:45 Ur Specific [place] 1.021 (1.003-1.030) 04/05/22 17:45 Urine Protein 30 mg/dl mg/dL (Negative) 04/05/22 17:45 Urine Glucose (UA) Neg mg/dL (Negative) 04/05/22 17:45 Urine Ketones Tr mg/dL (Negative) 04/05/22 17:45 Urine Blood Sm (Negative) 04/05/22 17:45 Urine Nitrite Neg (Negative) 04/05/22 17:45 Urine Bilirubin Neg (Negative) 04/05/22 17:45 Urine Urobilinogen < 2.0 mg/dL (<2.0) 04/05/22 17:45 Ur Leukocyte Esterase Tr (Negative) 04/05/22 17:45 Urine WBC (Auto) 8.0 /HPF (0.0-6.0) H 04/05/22 17:45 Urine RBC (Auto) 3.0 /HPF (0.0-6.0) 04/05/22 17:45 U Epithel Cells (Auto) 2.0 /HPF (0-13.0) 04/05/22 17:45 Urine Bacteria (Auto) 1+ /HPF (Negative) 04/02/22 Unknown Hyaline Casts 1 /LPF 04/05/22 17:45 Urine Mucus 3+ /HPF 04/05/22 17:45 Nasal Screen MRSA (PCR) Negative (Negative) 04/05/22 12:37 Vancomycin Trough 6.0 ug/mL (5.0-20.0) 04/05/22 18:53 Coronavirus (PCR) Negative (Negative) 04/07/22 14:52 Perez/IV: Voiding Method Condom Catheter Active Medications - Current Medications Current Medications: Generic Name Dose Route Start Last Admin Trade Name Freq PRN Reason Stop Dose Admin Acetaminophen 650 mg 04/02/22 23:53 04/11/22 17:31 Acetaminophen 325 Mg Tab PO 650 mg Q6H PRN Administration Pain MILD(1-3)/Fever >100.5/FAITH Acetylcysteine 200 mg 04/10/22 16:00 04/12/22 20:19 Acetylcysteine 20% Soln 4ml (200 Mg/Ml) IH Not Given Q8HRT [facility] Acetylcysteine 200 mg 04/13/22 00:00 04/13/22 08:34 Acetylcysteine 10% 100 Mg/1 Ml *For Inhalation Use* INHALATION 04/15/22 00:00 Not Given Q8HRT SEGUNDO Albuterol 2.5 mg 04/06/22 16:00 04/13/22 08:33 Albuterol 2.5 Mg/3 Ml Nebu IH 2.5 mg Q8HRT SEGUNDO Administration Bisacodyl 10 mg 04/07/22 09:44 04/12/22 10:06 Bisacodyl 10 Mg Rect Supp OH 10 mg QDAY PRN Administration Constipation Dextrose 50 ml 04/06/22 17:54 Dextrose 50% In Water (25gm) 50 Ml Syringe IV Q30MIN PRN Hypoglycemia Protocol Docusate Sodium 100 mg 04/03/22 15:00 04/12/22 20:59 Docusate Sodium 100 Mg/10 Ml Oral Liqd PO 100 mg BID SEGUNDO Administration Famotidine 20 mg 04/06/22 10:00 04/12/22 20:59 Famotidine 20 Mg Tab FEEDTUBE 20 mg BID SEGUNDO Administration Fentanyl 50 mcg 04/04/22 15:56 04/13/22 01:45 Fentanyl 100 Mcg/2 Ml Inj IV 50 mcg Q2HR PRN Administration For CPOT of greater than 2 Heparin Sodium (Porcine) 5,000 unit 04/03/22 06:00 04/13/22 05:09 Heparin 5,000 Unit/1 Ml Vial SUB-Q Not Given Q8HR SEGUNDO NORepinephrine/NS 8 MG-250 ML 8 mg in 250 mls @ 3.75 mls/hr 04/02/22 22:00 04/10/22 09:20 Norepinephrine/Ns 8 Mg-250 Ml (Double Conc) IV 0 mcg/min TITRATE SEGUNDO 0 mls/hr Titration Protocol 2 MCG/MIN Dexmedetomidine HCl 400 mcg/ 104 mls @ 2.434 mls/hr 04/03/22 07:00 04/12/22 21:39 Sodium Chloride IV 0.7 mcg/kg/hr TITRATE SEGUNDO 8.518 mls/hr Administration Protocol 0.2 MCG/KG/HR Fentanyl Citrate 2,000 mcg in 100 mls @ 2.34 mls/hr 04/05/22 11:00 04/13/22 06:07 Fentanyl Drip Premix IV 4 mcg/kg/hr TITR SEGUNDO 9.36 mls/hr Administration Protocol 1 MCG/KG/HR Cefepime HCl 2 gm in 100 mls @ 200 mls/hr 04/12/22 13:00 04/13/22 00:19 Cefepime/Ns 2 Gm/100 Ml IV 04/15/22 12:59 200 mls/hr Q12H SEGUNDO Administration Protocol Sodium Phosphate 15 mmol/ 255 mls @ 125 mls/hr 04/13/22 09:00 04/13/22 08:55 Sodium Chloride IV 04/13/22 11:02 125 mls/hr ONCE ONE Administration Insulin Human Regular 0 units 04/06/22 18:00 04/13/22 06:14 Insulin Regular, Human 100 Units/1 Ml SUB-Q Not Given Q6H [facility] Protocol Magnesium Hydroxide 30 ml 04/02/22 23:53 Magnesium Hydroxide (Mom) Oral Liqd Udc PO Q4H PRN Constipation Metoprolol Tartrate 12.5 mg 04/11/22 08:55 04/13/22 05:09 Metoprolol Tartrate 25 Mg Tab FEEDTUBE Not Given Q6HR [facility] Nitroglycerin 0.2 mg 04/11/22 06:00 04/13/22 05:09 Nitroglycerin 0.2 Mg Patch 24hr TD Not Given QDAY@0600 [facility] Ondansetron HCl 4 mg 04/02/22 23:53 Ondansetron 4 Mg/2 Ml Inj IV Q8H PRN Nausea And Vomiting Polyethylene Glycol 17 gm 04/08/22 10:00 04/12/22 10:07 Polyethylene Glycol 3350 17 Gm Powder PO 17 gm QDAY [facility] Administration Quetiapine Fumarate 100 mg 04/12/22 14:00 04/13/22 05:10 Quetiapine 25 Mg Tab PO 100 mg 0600,1600 SEGUNDO Administration Quetiapine Fumarate 50 mg 04/12/22 14:01 04/12/22 20:59 Quetiapine 25 Mg Tab PO 50 mg QHS SEGUNDO Administration Senna 17.6 mg 04/03/22 22:00 04/12/22 20:59 Sennosides Oral Liqd 8.8 Mg/5 Ml Oral Liqd PO 17.6 mg Q12HR SEGUNDO Administration Sodium Chloride 10 ml 04/03/22 10:00 04/12/22 20:59 Sodium Chloride 0.9% 10 Ml Flush Syringe IV 10 ml BID SEGUNDO Administration Sodium Chloride 10 ml 04/02/22 23:53 Sodium Chloride 0.9% 10 Ml Flush Syringe IV PRN PRN LINE FLUSH Nutrition/Malnutrition Assess - Dietary Evaluation Nutrition/Malnutrition Findings: Nutrition Notes Start: 04/04/22 13:13 Freq: Status: Active Protocol: Document 04/06/22 12:38 COLLEEN (Rec: 04/06/22 13:23 COLLEEN [id number]) Nutrition Notes Initial or Follow up Reassessment Current Diagnosis Sepsis,Respiratory Failure, Malnutrition Other Pertinent Diagnosis HAP, HFpEF, Elevated Troponin, ALS, Hypokalemia, Hypotension , ... Current Diet TF-Vital AF 1.2 Inderjit @ 50 ml/hr (since D 04/06) Labs/Tests 04/06: K 3.0, Crea <0.2, Glu 130, Ca 8.1. Pertinent Medications 04/06: KCl 40mEq, others nutritionally unremarkable. Height 5 ft 4.8 in Weight 46.8 kg [place] Body Weight (kg) 61.27 BMI 17.2 Intake Prior to Admission Poor Weight change and time frame No body weight change reported in 2 days. Weight Status Underweight Subjective/Other Information RD consult for routine F/U on TF tolerance/ continuation, and Low BMI assessment. Pt continues TF as prescribed, well tolerated, according to RN. Pt is on Mechanical ventilation, O2 saturation @ 96%, according to Physical Assessment Histroy notes. Pt presents constipation, according to Physical Assessment Histroy notes. Pt is swallow and Chewing impaired, according to Physical Assessment Histroy notes. Pt is alert and oriented, but continues on Mechanical Ventilation, according to Progress notes. Pt's Low BMI seems to correspond to a natural body composition, and not related to a sudden loss of body weight nor chronic malnutrition, since no signs of concern were mentioned in the Physical Assessment History or the Progress notes. Percent of energy/protein needs met: Prescribed TF-Vital AF 1.2 Inderjit @ 50 ml/hr provides for energy/protein needs (1,450 Kcal/91 g) during LOS, 98% Kcal; 100% AA. Burn Absent Trauma Absent GI Symptoms Constipation Difficulty In Swallowing,Chewing Food Allergy No Skin Integrity/Comment Unspecified Area of Concern. Current % PO Other Minimum of two criteria No #1 Nutrition Diagnosis Swallowing difficulty,Biting/ Chewing (masticatory) difficulty Comments: Change Nutrition Diagnostic for precision. Etiology ALS, Mechanical Ventilation. As Evidenced by Signs and Symptoms Pt currently on TF. Is patient on ventilator? Yes Is Patient Ambulatory and/or Out of Bed No REE-([facility]-confined to bed) [phone] Calculation Used for Recommendations [facility] Additional Notes Protein: 1.2-2 g/Kg IBW; 73- 122 g/day. Fluids: 1 ml/Kcal, or as per MD. Nutrition Intervention Nutrition Support: Continue TF-Vital AF 1.2 Inderjit @ 50 ml/hr. Flush: 80 ml water Q 4 hr, or as per MD. Kcal 1,450 Protein (gm) 91 Carbohydrates (gm) 134 Fat (gm) 65 Fluid (mL) 980 Fiber (gm) 6 % RDI: 98% Kcal; 100% AA. Goal #1 Provide at least 75% of energy /protein needs through Enteral Feeding during LOS. Goal #2 Maintain body weight within +/ -3% of admission body weight during LOS. Follow-Up By: 04/13/22 Additional Comments Continue monitoring TF tolerance and BM.
--- NOTE | 2022-04-09 15:18 | XRay Report ---
CHEST - 1 VIEW INDICATION: RLL atelectasis / effusion COMPARISON: 2 days prior FINDINGS: SUPPORT DEVICES: Stable support device positioning. HEART: Stable cardiomediastinal silhouette. LUNGS/PLEURA: Improved aeration in the right lung base with mild underlying patchy consolidation. Ef fusion has nearly resolved. ADDITIONAL FINDINGS: None. IMPRESSION: Improved exam as above. Signer Name: Ponce Vuong MD Signed: 04/09/2022 3:13 PM Workstation Name: [id number]
[2022-04-09] MEDS: QUEtiapine 25 MG TAB PO SCH ×2 (16:13→22:46)
[2022-04-09] MEDS ORDERED: QUEtiapine 100 MG TAB PO SCH (22:00)
[2022-04-10] MEDS: INSULIN REGULAR, HUMAN 100 UNITS/1 ML SUB-Q SCH ×4 (00:32→17:40)
[2022-04-10] MEDS: METOPROLOL TARTRATE 25 MG TAB PO SCH ×4 (00:45→17:41)
[2022-04-10] MEDS: fentaNYL DRIP Premix 2,000 MCG/100 ML BAG IV SCH ×2 (00:47→08:31)
[2022-04-10] MEDS: fentaNYL 100 MCG/2 ML INJ IV PRN ×4 (04:31→22:51)
[2022-04-10 05:28] LABS: Hematocrit 27.7 % (35.5-45.6); Hemoglobin 9.1 gm/dl (11.8-15.2); Mean Corpuscular HGB Conc 33 % (32-34); Mean Corpuscular Volume 95 fl (84-94); Platelet Count 156 K/mm3 (140-440); Red Blood Count 2.91 M/mm3 (3.65-5.03); Red Cell Distribution Width 13.7 % (13.2-15.2)
[2022-04-10 05:42] LABS: Blood Urea Nitrogen 12 mg/dL (9-20); Calcium 8.4 mg/dL (8.4-10.2); Hemolysis Index 2
[2022-04-10 05:58] LABS: BUN/Creatinine Ratio 60
[2022-04-10] MEDS: QUEtiapine 25 MG TAB PO SCH ×3 (05:59→22:48)
[2022-04-10] MEDS: HEPARIN 5,000 UNIT/1 ML VIAL SUB-Q SCH ×3 (05:59→22:49)
[2022-04-10] MEDS: NITROGLYCERIN 0.1 MG PATCH 24HR TD SCH (06:00)
[2022-04-10] MEDS: ALBUTEROL 2.5 MG/3 ML NEBU IH SCH ×2 (07:22→15:26)
[2022-04-10] MEDS: DOCUSATE SODIUM 100 MG/10 ML ORAL LIQD PO SCH ×2 (09:25→22:47)
[2022-04-10] MEDS: SENNOSIDES ORAL LIQD 8.8 MG/5 ML ORAL LIQD PO SCH ×2 (09:25→22:50)
[2022-04-10] MEDS: FAMOTIDINE 20 MG TAB FEEDTUBE SCH ×2 (09:25→22:48)
[2022-04-10] MEDS: POLYETHYLENE GLYCOL 3350 17 GM POWDER PO SCH (09:25)
[2022-04-10 10:02] LABS: ABG Base Excess 13.6 mmol/L (-2.0-3.0); ABG Methemoglobin 0.1 % (0.0-1.5); ABG Oxygen Saturation 94.9 % (95.0-99.0); ABG PCO2 63.3 mm Hg; ABG PH 7.418 pH Units (7.350-7.450); ABG PO2 63.4 mm Hg (80.0-90.0)
--- NOTE | 2022-04-10 10:11 | XRay Report ---
CHEST 1 VIEW 04/10/2022 9:10 AM INDICATION / CLINICAL INFORMATION: hypoxia. COMPARISON: 04/09/2022 FINDINGS: SUPPORT DEVICES: Unchanged. HEART / MEDIASTINUM: Stable. LUNGS / PLEURA: Redemonstrated patchy airspace opacities within the right lung base. No pneumothorax. ADDITIONAL FINDINGS: No significant additional findings. IMPRESSION: 1. No significant change. Signer Name: Jamarucs Welch DO Signed: 04/10/2022 10:07 AM Workstation Name: [id number]
--- NOTE | 2022-04-10 10:20 | Progress Note ---
Assessment and Plan - Patient Problems (1) Elevated troponin Current Visit: Yes Status: Acute (2) History of amyotrophic lateral sclerosis Current Visit: No Status: Acute Subjective Date of service: 04/10/22 Principal diagnosis: Ac and ch hypercapnic and hypoxemic Resp Failure; ALS; HCAP; Sepsis; NSTEMI Interval history: ALERT,,,VENT Objective Vital Signs Temp Pulse Pulse Pulse Resp Resp BP 04/10/22 10:01 117 H 16 141/80 04/10/22 09:45 107 H 21 110/67 04/10/22 09:30 77 14 103/61 04/10/22 09:15 76 14 94/58 04/10/22 09:00 62 14 94/58 04/10/22 08:45 73 14 91/56 04/10/22 08:30 72 14 89/52 04/10/22 08:15 78 14 92/50 04/10/22 08:01 114 H 16 110/73 04/10/22 08:00 99.9 F H 69 69 14 04/10/22 07:45 92 H 14 92/50 04/10/22 07:30 109 H 14 116/66 04/10/22 07:23 99 H 101 H 18 116/77 04/10/22 07:15 137 H 19 126/79 04/10/22 07:00 110 H 15 116/77 04/10/22 06:45 97 H 14 101/55 04/10/22 06:30 117 H 14 122/74 04/10/22 06:15 95 H 15 115/79 04/10/22 06:07 114 H 115/59 04/10/22 06:00 119 H 14 115/79 04/10/22 05:45 123 H 15 125/70 04/10/22 05:30 121 H 13 125/70 04/10/22 05:15 117 H 14 141/61 04/10/22 05:01 87 15 141/61 04/10/22 04:45 87 14 109/65 04/10/22 04:30 76 15 124/63 04/10/22 04:15 74 14 84/43 04/10/22 04:00 98.0 F 69 69 14 84/46 04/10/22 03:45 73 14 84/45 04/10/22 03:30 75 14 81/42 04/10/22 03:22 106 H 118/71 04/10/22 03:15 75 14 83/44 04/10/22 03:00 81 14 87/47 04/10/22 02:45 95 H 14 97/61 04/10/22 02:30 92 H 14 95/51 04/10/22 02:15 103 H 14 129/73 04/10/22 02:00 91 H 13 119/70 04/10/22 01:45 75 14 79/42 04/10/22 01:30 82 14 96/47 04/10/22 01:15 93 H 14 100/61 04/10/22 01:00 103 H 12 118/67 04/10/22 00:45 103 H 15 113/66 04/10/22 00:30 110 H 14 126/70 04/10/22 00:15 106 H 14 131/74 04/10/22 00:00 97.6 F 108 H 108 H 14 126/72 04/09/22 23:47 105 H 14 112/68 04/09/22 23:45 104 H 14 112/68 04/09/22 23:32 104 H 120/68 04/09/22 23:30 95 H 15 121/67 04/09/22 23:29 100 H 16 03 23:15 102 H 14 102/63 04/09/22 23:00 105 H 15 116/68 04/09/22 22:45 98 H 15 101/68 04/09/22 22:31 102 H 14 98/71 04/09/22 22:15 106 H 14 107/74 03 22:00 110 H 15 115/77 03 21:45 80 17 121/67 04/09/22 21:30 95 H 14 121/67 04/09/22 21:15 98 H 14 111/68 04/09/22 21:00 100 H 14 107/77 03 20:45 102 H 14 106/71 04/09/22 20:30 109 H 15 132/82 04/09/22 20:15 110 H 16 113/71 04/09/22 20:14 110 H 113/71 04/09/22 20:00 98.1 F 113 H 113 H 13 121/74 04/09/22 19:45 118 H 14 126/76 06/03/22 19:30 115 H 14 124/74 04/09/22 19:15 115 H 14 126/76 04/09/22 19:00 114 H 15 120/76 04/09/22 18:45 114 H 14 126/78 04/09/22 18:30 115 H 14 131/72 04/09/22 18:15 113 H 14 124/77 04/09/22 18:00 106 H 15 119/75 04/09/22 17:45 113 H 15 126/77 04/09/22 17:30 121 H 14 119/76 04/09/22 17:25 125 H 126/77 04/09/22 17:15 126 H 15 126/77 04/09/22 17:00 126 H 15 130/75 04/09/22 16:45 123 H 15 124/74 04/09/22 16:30 116 H 14 121/79 04/09/22 16:29 77 14 04/09/22 16:20 70 04/09/22 16:15 107 H 14 135/81 04/09/22 16:00 99 F 108 H 70 14 141/90 04/09/22 15:45 104 H 14 139/83 04/09/22 15:30 102 H 14 139/83 04/09/22 15:15 77 14 123/72 04/09/22 15:00 61 12 123/72 04/09/22 14:45 61 25 H 105/67 04/09/22 14:30 65 25 H 102/67 04/09/22 14:15 64 25 H 109/69 04/09/22 14:00 81 25 H 109/72 04/09/22 13:45 78 25 H 104/66 04/09/22 13:30 96 H 12 125/77 04/09/22 13:15 79 14 122/80 04/09/22 13:00 77 14 125/92 04/09/22 12:45 85 16 132/93 04/09/22 12:30 88 17 132/89 04/09/22 12:16 79 13 116/80 04/09/22 12:00 97.8 F 67 70 14 118/78 04/09/22 11:45 73 15 133/72 04/09/22 11:30 61 12 116/71 04/09/22 11:15 65 15 122/75 04/09/22 11:00 68 15 127/70 04/09/22 10:45 72 16 116/74 04/09/22 10:30 68 14 117/71 Pulse Ox 04/10/22 10:01 97 04/10/22 09:45 94 04/10/22 09:30 95 04/10/22 09:15 95 04/10/22 09:00 99 04/10/22 08:45 99 04/10/22 08:30 97 04/10/22 08:15 95 04/10/22 08:01 96 04/10/22 08:00 95 04/10/22 07:45 93 04/10/22 07:30 89 04/10/22 07:23 92 04/10/22 07:15 82 L 04/10/22 07:00 04/10/22 06:45 04/10/22 06:30 04/10/22 06:15 04/10/22 06:07 04/10/22 06:00 04/10/22 05:45 04/10/22 05:30 04/10/22 05:15 04/10/22 05:01 85 04/10/22 04:45 96 04/10/22 04:30 96 04/10/22 04:15 95 04/10/22 04:00 95 04/10/22 03:45 96 04/10/22 03:30 93 04/10/22 03:22 95 04/10/22 03:15 94 04/10/22 03:00 93 04/10/22 02:45 94 04/10/22 02:30 91 04/10/22 02:15 92 04/10/22 02:00 93 04/10/22 01:45 97 04/10/22 01:30 94 04/10/22 01:15 96 04/10/22 01:00 96 04/10/22 00:45 97 04/10/22 00:30 92 04/10/22 00:15 91 04/10/22 00:00 97 04/09/22 23:47 97 04/09/22 23:45 96 04/09/22 23:32 93 04/09/22 23:30 89 04/09/22 23:29 04/09/22 23:15 94 04/09/22 23:00 100 04/09/22 22:45 04/09/22 22:31 04/09/22 22:15 04/09/22 22:00 04/09/22 21:45 87 04/09/22 21:30 93 04/09/22 21:15 96 04/09/22 21:00 90 04/09/22 20:45 95 04/09/22 20:30 89 04/09/22 20:15 95 04/09/22 20:14 95 04/09/22 20:00 95 04/09/22 19:45 96 04/09/22 19:30 95 04/09/22 19:15 95 04/09/22 19:00 98 04/09/22 18:45 99 04/09/22 18:30 96 04/09/22 18:15 94 04/09/22 18:00 93 04/09/22 17:45 95 04/09/22 17:30 91 04/09/22 17:25 04/09/22 17:15 92 04/09/22 17:00 90 04/09/22 16:45 97 04/09/22 16:30 78 L 04/09/22 16:29 04/09/22 16:20 97 04/09/22 16:15 93 04/09/22 16:00 97 04/09/22 15:45 83 L 04/09/22 15:30 93 04/09/22 15:15 94 04/09/22 15:00 71 L 04/09/22 14:45 95 04/09/22 14:30 96 04/09/22 14:15 94 04/09/22 14:00 97 04/09/22 13:45 91 04/09/22 13:30 83 L 04/09/22 13:15 84 04/09/22 13:00 90 04/09/22 12:45 94 04/09/22 12:30 96 04/09/22 12:16 100 04/09/22 12:00 99 04/09/22 11:45 94 04/09/22 11:30 100 04/09/22 11:15 100 04/09/22 11:00 100 04/09/22 10:45 100 04/09/22 10:30 100 - Physical Examination General: Other (Intubated on mechanical ventilator) HEENT: Positive: PERRL, Normocephaly, Other (ET-tube in place) Neck: Positive: neck supple, trachea midline (intubated). Negative: JVD/HJR Cardiac: Positive: Reg Rate and Rhythm, Tachycardia Lungs: Positive: Decreased Breath Sounds, Rhonchi Neuro: Positive: Other (Awake, intubated on the vent) Abdomen: Positive: Soft Skin: Positive: Clear Extremities: Present: Other (TR.EDEMA). Absent: edema (NO) - Labs and Meds CBC 04/10/22 Range/Units 04:48 WBC 8.2 (4.5-11.0) K/mm3 RBC 2.91 L (3.65-5.03) M/mm3 Hgb 9.1 L (11.8-15.2) gm/dl Hct 27.7 L (35.5-45.6) % Plt Count 156 (140-440) K/mm3 Comprehensive Metabolic Panel 04/10/22 Range/Units 04:48 Sodium 138 (137-145) mmol/L Potassium 4.0 (3.6-5.0) mmol/L Chloride 95.7 L (98-107) mmol/L Carbon Dioxide 38 H (22-30) mmol/L BUN 12 (9-20) mg/dL Creatinine < 0.2 L (0.8-1.3) mg/dL Glucose 118 H (75-100) mg/dL Calcium 8.4 (8.4-10.2) mg/dL - Allied health notes Allied health notes reviewed: nursing
--- NOTE | 2022-04-10 11:47 | Progress Note ---
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, recently hospitalized at [facility] admitted for acute hypoxemic respiratory failure 2/2 pneumonia Neuro: h/o ALS -Sedated with precedex and fentanyl gtt -RASS goal 0 to -1 -Reorientation as needed -Maintain sleep-wake cycle -As needed analgesia -CT head with no acute intracranial process -Per family patient is nonverbal at baseline but responsive Cardiac: Hypotension, Suspect ischemic coronary artery disease, h/o cardiomyopathy -Cardiology consulted, appreciate recommendations -continue conservative management -Blood pressure monitoring per protocol -Vasopressor support with Levophed -Echocardiogram shows ejection fraction of 40 to 45%, mild global hypokinesis of left ventricle Respiratory: Acute hypoxic respiratory failure -CCM consulted, appreciate recommendations -Intubated on 04/02 with a 7.50 ETT attempt at the lips -A.m. vent settings: Assist-control/ PRVC TV 400, rate 14, Peep 8, FiO2 35% -See RT notes for titration -Chest US with possible thoracentisis completed -not enough fluid to drain -CPT and mucomyst -A.m. ABG and CXR noted -VAP bundle -SPO2 monitoring GI: Moderate protein calorie malnutrition -24 hours +876 mL -PPI -NTR consulted for tube feedings -BR: Senokot/colace, MiraLAX : Metabolic alkalosis -Strict intake and output -Renally dose medications -Avoid nephrotoxic medications -Daily weights -trend BMP ID: Sepsis, Acute Bronchopneumonia, HAP (Pseudomonas and Enterobacter tracheal aspirate), blood culture with bacillus species -Infectious disease consulted, appreciate recommendation -Per infectious disease patient was recently admitted to [facility] but discharged home with home hospice and not giving antibiotics -Antibiotic therapy with cefepime -Tracheal aspirate with Pseudomonas aeruginosa, Enterobacter aerogenes -04/02 blood culture with bacillus species, 04/05 blood culture NGTD -CRP 31.6, procalcitonin 0.08 -Monitor WBC and temperature curve Endo: NAD -Avoid hypoglycemia -SSI -Accu-Cheks q 6 Heme: Leukocytosis -Heparin subq -Trend CBC -Transfuse hemoglobin less than 7 -Monitor for signs of bleeding -SCDs to BLE while in bed Advance Care Planning - Disease education, care plan, diagnoses, and prognosis were discussed patient's , Carly Lopez, and patient daughter, Kaylee Warren, who translated for #[phone]. They reported that patient was following at [facility] for his ALS and during recent hospitalization at [facility] they were told nothing else can be offered to patient at this time and patient was discharge home with home hospice and PO morphine. First hospice visit was on , 04/01 however, patient became unresponsive 04/02 and they brought in to the hospital. - Goal of care and code status were also addressed at that time. Family wants to wait for a couple days to see how patient respond to current treatment before making a decision. All questions and concerns were addressed at this time. Patient family acknowledged understanding and agreement with care plan. -Patient remains a FULL CODE status. -04/05: Discussion at bedside with interpreting service with Dr. Valdivia and family state they would discuss next steps amongst themselves and let healthcare team know of decisions -04/06: extensive discussion with family ( and son) with Dr. Grayson regarding goals of care -04/08: Extensive discussion with with the use of pocket builder line regarding goals of care; no decision made. Possible consult to surgery for trach/PEG early next week. -04/09: Discussion with and her sister with Dr. Grayson and then with Dr. Pineda-> Consulted surgery for trach/peg The high probability of a clinically significant, sudden or life threatening deterioration of the [multiple] system(s) required my full and direct attention, intervention and personal management. The aggregate critical care time was [90] minutes. 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 Work-up in the emergency department revealed leukocytosis, elevated troponin and hyponatremia and CXR revealed moderate to large pleural effusion on the right. Patient was having agonal breathing in the emergency department and was intubated. Patient was admitted to the hospitalist service with consults to [facility], cardiology and infectious disease for further work-up. Hospital Course to Date: 04/03: Intubated and Sedated on versed gtt, RASS-5. CT head/brain noted with no acute intracranial abnormality. Plan to initiated precededx gtt and wean off versed for a RASS goal of 0 to -2. CT chect also reviewed, findings are most consistent with acute bronchopneumonia. Continue empiric IV Abx, vent adjustment per CCM. ID consulted. Continue to F/U on cultures. Titrate pressor for MAP above 65. Medical records requested from [facility]. 04/04: Remains stable on the vent, easily arousable on precedex gtt, not following commands. Plan for SAT/SBT today. PRN analgesia for CPOT greater than 3. Fevers improved, cultures and procal pending. Continue current IV abx, ID also consulted. Remains on low dose pressors, titrate pressors for a MAP above 65. 04/05: Long discussion with family with use of translation phone with [facility] regarding goals of care. Family to have meeting amongst themselves and informed care team of decisions. Fentanyl drip added for respiratory distress. Remains on Precedex drip. Antibiotics per ID. Given 2L NS bolus with levophed gtt 04/06: Family discussion with Dr. Grayson for goals of care. CXR shows possible mucus plug, continue CPT as FiO2 is being able to be weaned. Potassium repleted. Weaning fentnyl gtt. 04/07: Ultrasound guided thoracentesis today scheduled, inadequate amount of pleural effusion on so not completed. Patient was started on Levophed overnight which was weaned off this morning however had to be started twice a day. Remains on fentanyl and Precedex. Cardiology discontinued BB and ACEi in setting of hypotension. 04/08: COVID-19 PCR negative. Routine EEG ordered by cardiology which showed ST changes, cardiology aware. They will continue conservative treatment. Repeat troponins 0.030 which are less than admit of 0.048. Dr. Grayson had a long discussion with with the use of pocket builder today at bedside and has not made a decision regarding goals of care. Possible consult to surgery for trach/PEG early next week. Continues to require Precedex and fentanyl drip for sedation. Carvedilol/lisinopril discontinued as patient is continuously on Levophed. 04/09: No acute events reported overnight, remains on fentanyl, Precedex and Levophed drips. Dr. Grayson and Dr. Pineda updated family at bedside extensively today. Consulted surgery for trach/PEG. COVID-19 PCR negative. 04/10: Patient noted to have desaturation episodes, FiO2 increased slightly to 35%. Will add Mucomyst. Remains on fentanyl and Precedex. Off of Levophed. Surgery consulted for trach/PEG. Hospitalist Physical - Constitutional Vitals: Temp Pulse Resp BP Pulse Ox 99.9 F H 126 H 14 108/61 91 04/10/22 08:00 04/10/22 11:12 04/10/22 11:00 04/10/22 11:00 04/10/22 11:12 General appearance: Present: no acute distress, cachectic, other (Intubated, easily arousable on precedex gtt) - EENT Eyes: Present: PERRL, EOM intact ENT: poor dentition - Neck Neck: Present: normal ROM - Respiratory Respiratory effort: normal Respiratory: bilateral: diminished - Cardiovascular Rhythm: regular Heart Sounds: Present: S1 & S2. Absent: systolic murmur, diastolic murmur - Extremities Extremities: no ischemia, pulses intact, pulses symmetrical, No edema, normal temperature, normal color Peripheral Pulses: within normal limits - Abdominal General gastrointestinal: soft, non-tender, non-distended, normal bowel sounds - Integumentary Integumentary: Present: warm, dry - Psychiatric Psychiatric: other - Neurologic Neurologic: CNII-XII intact, other (move BUE, track/focus) - Allied Health Allied health notes reviewed: nursing, RT, social work HEART Score - HEART Score Troponin: Troponin T 0.031 ng/mL (0.00-0.029) H 04/08/22 17:47 Results - Labs CBC & Chem 7: 04/10/22 04:48 04/10/22 04:48 Labs: Laboratory Last Values WBC 8.2 K/mm3 (4.5-11.0) 04/10/22 04:48 RBC 2.91 M/mm3 (3.65-5.03) L 04/10/22 04:48 Hgb 9.1 gm/dl (11.8-15.2) L 04/10/22 04:48 Hct 27.7 % (35.5-45.6) L 04/10/22 04:48 MCV 95 fl (84-94) H 04/10/22 04:48 MCH 31 pg (28-32) 04/10/22 04:48 MCHC 33 % (32-34) 04/10/22 04:48 RDW 13.7 % (13.2-15.2) 04/10/22 04:48 Plt Count 156 K/mm3 (140-440) 04/10/22 04:48 Lymph % (Auto) 4.3 % (13.4-35.0) L 04/07/22 03:51 [place] % (Auto) 8.8 % (0.0-7.3) H 04/07/22 03:51 Eos % (Auto) 0.1 % (0.0-4.3) 04/07/22 03:51 Baso % (Auto) 0.2 % (0.0-1.8) 04/07/22 03:51 Lymph # (Auto) 0.6 K/mm3 (1.2-5.4) L 04/07/22 03:51 More[place] # (Auto) 1.3 K/mm3 (0.0-0.8) H 04/07/22 03:51 Eos # (Auto) 0.0 K/mm3 (0.0-0.4) 04/07/22 03:51 Baso # (Auto) 0.0 K/mm3 (0.0-0.1) 04/07/22 03:51 Add Manual Diff Complete 04/02/22 19:39 Total Counted 100 04/02/22 19:39 Seg Neutrophils % 86.6 % (40.0-70.0) H 04/07/22 03:51 Seg Neuts % (Manual) 94.0 % (40.0-70.0) H 04/02/22 19:39 Band Neutrophils % 0 % 04/02/22 19:39 Lymphocytes % (Manual) 1.0 % (13.4-35.0) L 04/02/22 19:39 Reactive Lymphs % (Man) 0 % 04/02/22 19:39 Monocytes % (Manual) 5.0 % (0.0-7.3) 04/02/22 19:39 Eosinophils % (Manual) 0 % (0.0-4.3) 04/02/22 19:39 Basophils % (Manual) 0 % (0.0-1.8) 04/02/22 19:39 Metamyelocytes % 0 % 04/02/22 19:39 Myelocytes % 0 % 04/02/22 19:39 Promyelocytes % 0 % 04/02/22 19:39 Blast Cells % 0 % 04/02/22 19:39 Nucleated RBC % Not Reportable 04/02/22 19:39 Seg Neutrophils # 12.7 K/mm3 (1.8-7.7) H 04/07/22 03:51 Seg Neutrophils # Man 13.4 K/mm3 (1.8-7.7) H 04/02/22 19:39 Band Neutrophils # 0.0 K/mm3 04/02/22 19:39 Lymphocytes # (Manual) 0.1 K/mm3 (1.2-5.4) L 04/02/22 19:39 Abs React Lymphs (Man) 0.0 K/mm3 04/02/22 19:39 Monocytes # (Manual) 0.7 K/mm3 (0.0-0.8) 04/02/22 19:39 Eosinophils # (Manual) 0.0 K/mm3 (0.0-0.4) 04/02/22 19:39 Basophils # (Manual) 0.0 K/mm3 (0.0-0.1) 04/02/22 19:39 Metamyelocytes # 0.0 K/mm3 04/02/22 19:39 Myelocytes # 0.0 K/mm3 04/02/22 19:39 Promyelocytes # 0.0 K/mm3 04/02/22 19:39 Blast Cells # 0.0 K/mm3 04/02/22 19:39 WBC Morphology Not Reportable 04/02/22 19:39 Hypersegmented Neuts Not Reportable 04/02/22 19:39 Hyposegmented Neuts Not Reportable 04/02/22 19:39 Hypogranular Neuts Not Reportable 04/02/22 19:39 Smudge Cells Not Reportable 04/02/22 19:39 Toxic Granulation Not Reportable 04/02/22 19:39 Toxic Vacuolation Not Reportable 04/02/22 19:39 Dohle Bodies Not Reportable 04/02/22 19:39 Pelger-Huet Anomaly Not Reportable 04/02/22 19:39 Terry Rods Not Reportable 04/02/22 19:39 Platelet Estimate Consistent w auto 04/02/22 19:39 Clumped Platelets Not Reportable 04/02/22 19:39 Plt Clumps, EDTA Not Reportable 04/02/22 19:39 Large Platelets Not Reportable 04/02/22 19:39 Giant Platelets Not Reportable 04/02/22 19:39 Platelet Satelliting Not Reportable 04/02/22 19:39 Plt Morphology Comment Not Reportable 04/02/22 19:39 RBC Morphology Not Reportable 04/02/22 19:39 Dimorphic RBCs Not Reportable 04/02/22 19:39 Polychromasia Not Reportable 04/02/22 19:39 Hypochromasia Not Reportable 04/02/22 19:39 Poikilocytosis Not Reportable 04/02/22 19:39 Anisocytosis 1+ 04/02/22 19:39 Microcytosis Not Reportable 04/02/22 19:39 Macrocytosis Not Reportable 04/02/22 19:39 Spherocytes Not Reportable 04/02/22 19:39 Pappenheimer Bodies Not Reportable 04/02/22 19:39 Sickle Cells Not Reportable 04/02/22 19:39 Target Cells Not Reportable 04/02/22 19:39 Tear Drop Cells Not Reportable 04/02/22 19:39 Ovalocytes Not Reportable 04/02/22 19:39 Helmet Cells Not Reportable 04/02/22 19:39 Patricio-[place] Bodies Not Reportable 04/02/22 19:39 [place] Rings Not Reportable 04/02/22 19:39 Cheikh Cells Not Reportable 04/02/22 19:39 Bite Cells Not Reportable 04/02/22 19:39 Crenated Cell Not Reportable 04/02/22 19:39 Elliptocytes Not Reportable 04/02/22 19:39 Acanthocytes (Spur) Not Reportable 04/02/22 19:39 Rouleaux Not Reportable 04/02/22 19:39 Hemoglobin C Crystals Not Reportable 04/02/22 19:39 Schistocytes Not Reportable 04/02/22 19:39 Malaria parasites Not Reportable 04/02/22 19:39 Denton Bodies Not Reportable 04/02/22 19:39 Hem Pathologist Commnt No 04/02/22 19:39 PT 15.2 Sec. (12.2-14.9) H 04/07/22 03:51 INR 1.08 (0.87-1.13) 04/07/22 03:51 APTT 35.7 Sec. (24.2-36.6) 04/07/22 03:51 ABG pH 7.364 pH Units (7.350-7.450) 04/09/22 13:00 ABG pCO2 68.5 mm Hg 04/09/22 13:00 ABG pO2 66.6 mm Hg (80.0-90.0) L 04/09/22 13:00 ABG HCO3 38.2 mmol/L (20.0-26.0) H 04/09/22 13:00 ABG O2 Saturation 94.4 % (95.0-99.0) L 04/09/22 13:00 ABG O2 Content 14.0 (0.0-44) 04/09/22 13:00 ABG Base Excess 10.7 mmol/L (-2.0-3.0) H 04/09/22 13:00 ABG Hemoglobin 10.7 gm/dl (14.0-18.0) L 04/09/22 13:00 ABG Carboxyhemoglobin 1.3 % (0.0-5.0) 04/09/22 13:00 ABG Methemoglobin 0.4 % (0.0-1.5) 04/09/22 13:00 Oxyhemoglobin 92.8 % (95.0-99.0) L 04/09/22 13:00 FiO2 30 % 04/09/22 13:00 Sodium 138 mmol/L (137-145) 04/10/22 04:48 Potassium 4.0 mmol/L (3.6-5.0) 04/10/22 04:48 Chloride 95.7 mmol/L (98-107) L 04/10/22 04:48 Carbon Dioxide 38 mmol/L (22-30) H 04/10/22 04:48 Anion Gap 8 mmol/L 04/10/22 04:48 BUN 12 mg/dL (9-20) 04/10/22 04:48 Creatinine < 0.2 mg/dL (0.8-1.3) L 04/10/22 04:48 Estimated GFR > 60 ml/min 04/10/22 04:48 BUN/Creatinine Ratio 60 % 04/10/22 04:48 Glucose 118 mg/dL (75-100) H 04/10/22 04:48 POC Glucose 127 mg/dL (70-105) H 04/10/22 05:34 Lactic Acid 1.90 mmol/L (0.7-2.0) 04/02/22 19:39 Calcium 8.4 mg/dL (8.4-10.2) 04/10/22 04:48 Phosphorus 3.50 mg/dL (2.5-4.5) D 04/05/22 02:50 Magnesium 2.00 mg/dL (1.7-2.3) 04/05/22 02:50 Total Bilirubin 0.80 mg/dL (0.1-1.2) 04/02/22 19:39 AST 15 units/L (5-40) 04/02/22 19:39 ALT 9 units/L (7-56) 04/02/22 19:39 Alkaline Phosphatase 43 units/L (35-129) 04/02/22 19:39 Total Creatine Kinase 46 units/L (55-170) L 04/08/22 17:47 CK-MB (CK-2) 2.6 ng/mL (0.0-4.0) 04/08/22 17:47 CK-MB (CK-2) Rel Index 5.6 (0-4) H 04/08/22 17:47 Troponin T 0.031 ng/mL (0.00-0.029) H 04/08/22 17:47 C-Reactive Protein 31.60 mg/dL (0.00-1.30) H 04/04/22 04:18 Total Protein 4.6 g/dL (6.3-8.2) L 04/02/22 19:39 Albumin 2.7 g/dL (3.9-5) L 04/02/22 19:39 Albumin/Globulin Ratio 1.4 % 04/02/22 19:39 Triglycerides 80 mg/dL (2-149) 04/02/22 19:39 Cholesterol 94 mg/dL (50-199) 04/02/22 19:39 LDL Cholesterol Direct 27 mg/dL (50-130) L 04/02/22 19:39 HDL Cholesterol 47 mg/dL (40-59) 04/02/22 19:39 Cholesterol/HDL Ratio 2.00 % 04/02/22 19:39 Procalcitonin 0.08 ng/mL (<0.15) 04/04/22 04:18 Urine Color Aracely (Yellow) 04/05/22 17:45 Urine Turbidity Cloudy (Clear) 04/05/22 17:45 Urine pH 5.0 (5.0-7.0) 04/05/22 17:45 Ur Specific [place] 1.021 (1.003-1.030) 04/05/22 17:45 Urine Protein 30 mg/dl mg/dL (Negative) 04/05/22 17:45 Urine Glucose (UA) Neg mg/dL (Negative) 04/05/22 17:45 Urine Ketones Tr mg/dL (Negative) 04/05/22 17:45 Urine Blood Sm (Negative) 04/05/22 17:45 Urine Nitrite Neg (Negative) 04/05/22 17:45 Urine Bilirubin Neg (Negative) 04/05/22 17:45 Urine Urobilinogen < 2.0 mg/dL (<2.0) 04/05/22 17:45 Ur Leukocyte Esterase Tr (Negative) 04/05/22 17:45 Urine WBC (Auto) 8.0 /HPF (0.0-6.0) H 04/05/22 17:45 Urine RBC (Auto) 3.0 /HPF (0.0-6.0) 04/05/22 17:45 U Epithel Cells (Auto) 2.0 /HPF (0-13.0) 04/05/22 17:45 Urine Bacteria (Auto) 1+ /HPF (Negative) 04/02/22 Unknown Hyaline Casts 1 /LPF 04/05/22 17:45 Urine Mucus 3+ /HPF 04/05/22 17:45 Nasal Screen MRSA (PCR) Negative (Negative) 04/05/22 12:37 Vancomycin Trough 6.0 ug/mL (5.0-20.0) 04/05/22 18:53 Coronavirus (PCR) Negative (Negative) 04/07/22 14:52 Microbiology: Microbiology 04/05/22 18:53 Peripheral/Venous Blood Culture - Preliminary NO GROWTH AFTER 4 DAYS 04/05/22 18:53 Peripheral/Venous Blood Culture - Preliminary NO GROWTH AFTER 4 DAYS Preez/IV: Voiding Method Condom Catheter Active Medications - Current Medications Current Medications: Generic Name Dose Route Start Last Admin Trade Name Freq PRN Reason Stop Dose Admin Acetaminophen 650 mg 04/02/22 23:53 04/08/22 09:33 Acetaminophen 325 Mg Tab PO 650 mg Q6H PRN Administration Pain MILD(1-3)/Fever >100.5/FAITH Acetylcysteine 200 mg 04/10/22 16:00 Acetylcysteine 20% Soln 4ml (200 Mg/Ml) IH Q8HRT SEGUNDO Albuterol 2.5 mg 04/06/22 16:00 04/10/22 07:22 Albuterol 2.5 Mg/3 Ml Nebu IH 2.5 mg Q8HRT SEGUNDO Administration Bisacodyl 10 mg 04/07/22 09:44 Bisacodyl 10 Mg Rect Supp ID QDAY PRN Constipation Dextrose 50 ml 04/06/22 17:54 Dextrose 50% In Water (25gm) 50 Ml Syringe IV Q30MIN PRN Hypoglycemia Protocol Docusate Sodium 100 mg 04/03/22 15:00 04/10/22 09:25 Docusate Sodium 100 Mg/10 Ml Oral Liqd PO 100 mg BID SEGUNDO Administration Famotidine 20 mg 04/06/22 10:00 04/10/22 09:25 Famotidine 20 Mg Tab FEEDTUBE 20 mg BID SEGUNDO Administration Fentanyl 50 mcg 04/04/22 15:56 04/10/22 10:53 Fentanyl 100 Mcg/2 Ml Inj IV 50 mcg Q2HR PRN Administration For CPOT of greater than 2 Heparin Sodium (Porcine) 5,000 unit 04/03/22 06:00 04/10/22 05:59 Heparin 5,000 Unit/1 Ml Vial SUB-Q 5,000 unit Q8HR SEGUNDO Administration NORepinephrine/NS 8 MG-250 ML 8 mg in 250 mls @ 3.75 mls/hr 04/02/22 22:00 04/10/22 09:20 Norepinephrine/Ns 8 Mg-250 Ml (Double Conc) IV 0 mcg/min TITRATE SEGUNDO 0 mls/hr Titration Protocol 2 MCG/MIN Dexmedetomidine HCl 400 mcg/ 104 mls @ 2.434 mls/hr 04/03/22 07:00 04/10/22 04:31 Sodium Chloride IV 1.2 mcg/kg/hr TITRATE SEGUNDO 14.602 mls/hr Administration Protocol 0.2 MCG/KG/HR Fentanyl Citrate 2,000 mcg in 100 mls @ 2.34 mls/hr 04/05/22 11:00 04/10/22 08:31 Fentanyl Drip Premix IV 4 mcg/kg/hr TITR SEGUNDO 9.36 mls/hr Administration Protocol 1 MCG/KG/HR Insulin Human Regular 0 units 04/06/22 18:00 04/10/22 06:00 Insulin Regular, Human 100 Units/1 Ml SUB-Q Not Given Q6H [facility] Protocol Magnesium Hydroxide 30 ml 04/02/22 23:53 Magnesium Hydroxide (Mom) Oral Liqd Udc PO Q4H PRN Constipation Metoprolol Tartrate 12.5 mg 04/09/22 14:00 04/10/22 06:07 Metoprolol Tartrate 25 Mg Tab PO 12.5 mg Q6HR SEGUNDO Administration Nitroglycerin 0.2 mg 04/10/22 06:00 04/10/22 06:00 Nitroglycerin 0.1 Mg Patch 24hr TD Not Given QDAY@0600 SEGUNDO Ondansetron HCl 4 mg 04/02/22 23:53 Ondansetron 4 Mg/2 Ml Inj IV Q8H PRN Nausea And Vomiting Polyethylene Glycol 17 gm 04/08/22 10:00 04/10/22 09:25 Polyethylene Glycol 3350 17 Gm Powder PO 17 gm QDAY SEGUNDO Administration Quetiapine Fumarate 50 mg 04/09/22 16:00 04/10/22 05:59 Quetiapine 25 Mg Tab PO 50 mg 0600,1600 SEGUNDO Administration Quetiapine Fumarate 25 mg 04/09/22 22:00 04/09/22 22:46 Quetiapine 25 Mg Tab PO 25 mg QHS SEGUNDO Administration Senna 17.6 mg 04/03/22 22:00 04/10/22 09:25 Sennosides Oral Liqd 8.8 Mg/5 Ml Oral Liqd PO 17.6 mg Q12HR SEGUNDO Administration Sodium Chloride 10 ml 04/03/22 10:00 04/10/22 09:26 Sodium Chloride 0.9% 10 Ml Flush Syringe IV 10 ml BID SEGUNDO Administration Sodium Chloride 10 ml 04/02/22 23:53 Sodium Chloride 0.9% 10 Ml Flush Syringe IV PRN PRN LINE FLUSH Nutrition/Malnutrition Assess - Dietary Evaluation Nutrition/Malnutrition Findings: Nutrition Notes Start: 04/04/22 13:13 Freq: Status: Active Protocol: Document 04/06/22 12:38 COLLEEN (Rec: 04/06/22 13:23 COLLEEN [id number]) Nutrition Notes Initial or Follow up Reassessment Current Diagnosis Sepsis,Respiratory Failure, Malnutrition Other Pertinent Diagnosis HAP, HFpEF, Elevated Troponin, ALS, Hypokalemia, Hypotension , ... Current Diet TF-Vital AF 1.2 Inderjit @ 50 ml/hr (since D 04/06) Labs/Tests 04/06: K 3.0, Crea <0.2, Glu 130, Ca 8.1. Pertinent Medications 04/06: KCl 40mEq, others nutritionally unremarkable. Height 5 ft 4.8 in Weight 46.8 kg [place] Body Weight (kg) 61.27 BMI 17.2 Intake Prior to Admission Poor Weight change and time frame No body weight change reported in 2 days. Weight Status Underweight Subjective/Other Information RD consult for routine F/U on TF tolerance/ continuation, and Low BMI assessment. Pt continues TF as prescribed, well tolerated, according to RN. Pt is on Mechanical ventilation, O2 saturation @ 96%, according to Physical Assessment Histroy notes. Pt presents constipation, according to Physical Assessment Histroy notes. Pt is swallow and Chewing impaired, according to Physical Assessment Histroy notes. Pt is alert and oriented, but continues on Mechanical Ventilation, according to Progress notes. Pt's Low BMI seems to correspond to a natural body composition, and not related to a sudden loss of body weight nor chronic malnutrition, since no signs of concern were mentioned in the Physical Assessment History or the Progress notes. Percent of energy/protein needs met: Prescribed TF-Vital AF 1.2 Inderjit @ 50 ml/hr provides for energy/protein needs (1,450 Kcal/91 g) during LOS, 98% Kcal; 100% AA. Burn Absent Trauma Absent GI Symptoms Constipation Difficulty In Swallowing,Chewing Food Allergy No Skin Integrity/Comment Unspecified Area of Concern. Current % PO Other Minimum of two criteria No #1 Nutrition Diagnosis Swallowing difficulty,Biting/ Chewing (masticatory) difficulty Comments: Change Nutrition Diagnostic for precision. Etiology ALS, Mechanical Ventilation. As Evidenced by Signs and Symptoms Pt currently on TF. Is patient on ventilator? Yes Is Patient Ambulatory and/or Out of Bed No REE-([facility]-confined to bed) [phone] Calculation Used for Recommendations [facility] Additional Notes Protein: 1.2-2 g/Kg IBW; 73- 122 g/day. Fluids: 1 ml/Kcal, or as per MD. Nutrition Intervention Nutrition Support: Continue TF-Vital AF 1.2 Inderjit @ 50 ml/hr. Flush: 80 ml water Q 4 hr, or as per MD. Kcal 1,450 Protein (gm) 91 Carbohydrates (gm) 134 Fat (gm) 65 Fluid (mL) 980 Fiber (gm) 6 % RDI: 98% Kcal; 100% AA. Goal #1 Provide at least 75% of energy /protein needs through Enteral Feeding during LOS. Goal #2 Maintain body weight within +/ -3% of admission body weight during LOS. Follow-Up By: 04/13/22 Additional Comments Continue monitoring TF tolerance and BM. <NORM GRAYSON - Last Filed: 04/13/22 10:17> Assessment and Plan Assessment and plan: I saw and evaluated the patient. Discussed with the nurse practitioner and agree with their findings and plan as documented in this note. Hospitalist Physical - Constitutional Vitals: Temp Pulse Resp BP Pulse Ox 98 F 110 H 18 131/87 96 04/13/22 08:00 04/13/22 08:34 04/13/22 08:34 04/13/22 08:15 04/13/22 08:15 HEART Score - HEART Score Troponin: Troponin T 0.031 ng/mL (0.00-0.029) H 04/08/22 17:47 Results - Labs CBC & Chem 7: 04/13/22 04:30 04/13/22 04:30 Labs: Laboratory Last Values WBC 14.1 K/mm3 (4.5-11.0) H 04/13/22 04:30 RBC 2.66 M/mm3 (3.65-5.03) L 04/13/22 04:30 Hgb 8.4 gm/dl (11.8-15.2) L 04/13/22 04:30 Hct 25.5 % (35.5-45.6) L 04/13/22 04:30 MCV 96 fl (84-94) H 04/13/22 04:30 MCH 32 pg (28-32) 04/13/22 04:30 MCHC 33 % (32-34) 04/13/22 04:30 RDW 13.9 % (13.2-15.2) 04/13/22 04:30 Plt Count 245 K/mm3 (140-440) 04/13/22 04:30 Lymph % (Auto) 4.3 % (13.4-35.0) L 04/07/22 03:51 [place] % (Auto) 8.8 % (0.0-7.3) H 04/07/22 03:51 Eos % (Auto) 0.1 % (0.0-4.3) 04/07/22 03:51 Baso % (Auto) 0.2 % (0.0-1.8) 04/07/22 03:51 Lymph # (Auto) 0.6 K/mm3 (1.2-5.4) L 04/07/22 03:51 [place] # (Auto) 1.3 K/mm3 (0.0-0.8) H 04/07/22 03:51 Eos # (Auto) 0.0 K/mm3 (0.0-0.4) 04/07/22 03:51 Baso # (Auto) 0.0 K/mm3 (0.0-0.1) 04/07/22 03:51 Add Manual Diff Complete 04/02/22 19:39 Total Counted 100 04/02/22 19:39 Seg Neutrophils % 86.6 % (40.0-70.0) H 04/07/22 03:51 Seg Neuts % (Manual) 94.0 % (40.0-70.0) H 04/02/22 19:39 Band Neutrophils % 0 % 04/02/22 19:39 Lymphocytes % (Manual) 1.0 % (13.4-35.0) L 04/02/22 19:39 Reactive Lymphs % (Man) 0 % 04/02/22 19:39 Monocytes % (Manual) 5.0 % (0.0-7.3) 04/02/22 19:39 Eosinophils % (Manual) 0 % (0.0-4.3) 04/02/22 19:39 Basophils % (Manual) 0 % (0.0-1.8) 04/02/22 19:39 Metamyelocytes % 0 % 04/02/22 19:39 Myelocytes % 0 % 04/02/22 19:39 Promyelocytes % 0 % 04/02/22 19:39 Blast Cells % 0 % 04/02/22 19:39 Nucleated RBC % Not Reportable 04/02/22 19:39 Seg Neutrophils # 12.7 K/mm3 (1.8-7.7) H 04/07/22 03:51 Seg Neutrophils # Man 13.4 K/mm3 (1.8-7.7) H 04/02/22 19:39 Band Neutrophils # 0.0 K/mm3 04/02/22 19:39 Lymphocytes # (Manual) 0.1 K/mm3 (1.2-5.4) L 04/02/22 19:39 Abs React Lymphs (Man) 0.0 K/mm3 04/02/22 19:39 Monocytes # (Manual) 0.7 K/mm3 (0.0-0.8) 04/02/22 19:39 Eosinophils # (Manual) 0.0 K/mm3 (0.0-0.4) 04/02/22 19:39 Basophils # (Manual) 0.0 K/mm3 (0.0-0.1) 04/02/22 19:39 Metamyelocytes # 0.0 K/mm3 04/02/22 19:39 Myelocytes # 0.0 K/mm3 04/02/22 19:39 Promyelocytes # 0.0 K/mm3 04/02/22 19:39 Blast Cells # 0.0 K/mm3 04/02/22 19:39 WBC Morphology Not Reportable 04/02/22 19:39 Hypersegmented Neuts Not Reportable 04/02/22 19:39 Hyposegmented Neuts Not Reportable 04/02/22 19:39 Hypogranular Neuts Not Reportable 04/02/22 19:39 Smudge Cells Not Reportable 04/02/22 19:39 Toxic Granulation Not Reportable 04/02/22 19:39 Toxic Vacuolation Not Reportable 04/02/22 19:39 Dohle Bodies Not Reportable 04/02/22 19:39 Pelger-Huet Anomaly Not Reportable 04/02/22 19:39 Terry Rods Not Reportable 04/02/22 19:39 Platelet Estimate Consistent w auto 04/02/22 19:39 Clumped Platelets Not Reportable 04/02/22 19:39 Plt Clumps, EDTA Not Reportable 04/02/22 19:39 Large Platelets Not Reportable 04/02/22 19:39 Giant Platelets Not Reportable 04/02/22 19:39 Platelet Satelliting Not Reportable 04/02/22 19:39 Plt Morphology Comment Not Reportable 04/02/22 19:39 RBC Morphology Not Reportable 04/02/22 19:39 Dimorphic RBCs Not Reportable 04/02/22 19:39 Polychromasia Not Reportable 04/02/22 19:39 Hypochromasia Not Reportable 04/02/22 19:39 Poikilocytosis Not Reportable 04/02/22 19:39 Anisocytosis 1+ 04/02/22 19:39 Microcytosis Not Reportable 04/02/22 19:39 Macrocytosis Not Reportable 04/02/22 19:39 Spherocytes Not Reportable 04/02/22 19:39 Pappenheimer Bodies Not Reportable 04/02/22 19:39 Sickle Cells Not Reportable 04/02/22 19:39 Target Cells Not Reportable 04/02/22 19:39 Tear Drop Cells Not Reportable 04/02/22 19:39 Ovalocytes Not Reportable 04/02/22 19:39 Helmet Cells Not Reportable 04/02/22 19:39 Patricio-[place] Bodies Not Reportable 04/02/22 19:39 [place] Rings Not Reportable 04/02/22 19:39 Cheikh Cells Not Reportable 04/02/22 19:39 Bite Cells Not Reportable 04/02/22 19:39 Crenated Cell Not Reportable 04/02/22 19:39 Elliptocytes Not Reportable 04/02/22 19:39 Acanthocytes (Spur) Not Reportable 04/02/22 19:39 Rouleaux Not Reportable 04/02/22 19:39 Hemoglobin C Crystals Not Reportable 04/02/22 19:39 Schistocytes Not Reportable 04/02/22 19:39 Malaria parasites Not Reportable 04/02/22 19:39 [place] Bodies Not Reportable 04/02/22 19:39 Hem Pathologist Commnt No 04/02/22 19:39 PT 13.6 Sec. (12.2-14.9) 04/13/22 04:30 INR 0.94 (0.87-1.13) 04/13/22 04:30 APTT 35.7 Sec. (24.2-36.6) 04/07/22 03:51 ABG pH 7.360 pH Units (7.350-7.450) 04/11/22 16:20 ABG pCO2 73.3 mm Hg 04/11/22 16:20 ABG pO2 57.8 mm Hg (80.0-90.0) L 04/11/22 16:20 ABG HCO3 40.5 mmol/L (20.0-26.0) H 04/11/22 16:20 ABG O2 Saturation 90.6 % (95.0-99.0) L 04/11/22 16:20 ABG O2 Content 13.2 (0.0-44) 04/11/22 16:20 ABG Base Excess 12.6 mmol/L (-2.0-3.0) H 04/11/22 16:20 ABG Hemoglobin 10.5 gm/dl (14.0-18.0) L 04/11/22 16:20 ABG Carboxyhemoglobin 1.4 % (0.0-5.0) 04/11/22 16:20 ABG Methemoglobin 0.4 % (0.0-1.5) 04/11/22 16:20 Oxyhemoglobin 89.0 % (95.0-99.0) L 04/11/22 16:20 FiO2 75 % 04/11/22 16:20 Sodium 139 mmol/L (137-145) 04/13/22 04:30 Potassium 4.5 mmol/L (3.6-5.0) 04/13/22 04:30 Chloride 93.9 mmol/L (98-107) L 04/13/22 04:30 Carbon Dioxide 39 mmol/L (22-30) H 04/13/22 04:30 Anion Gap 11 mmol/L 04/13/22 04:30 BUN 16 mg/dL (9-20) 04/13/22 04:30 Creatinine < 0.2 mg/dL (0.8-1.3) L 04/13/22 04:30 Estimated GFR > 60 ml/min 04/13/22 04:30 BUN/Creatinine Ratio 80 % 04/13/22 04:30 Glucose 95 mg/dL (75-100) 04/13/22 04:30 POC Glucose 107 mg/dL (70-105) H 04/12/22 23:39 Lactic Acid 1.90 mmol/L (0.7-2.0) 04/02/22 19:39 Calcium 8.5 mg/dL (8.4-10.2) 04/13/22 04:30 Phosphorus 1.90 mg/dL (2.5-4.5) L 04/13/22 04:30 Magnesium 1.90 mg/dL (1.7-2.3) 04/13/22 04:30 Total Bilirubin 0.80 mg/dL (0.1-1.2) 04/02/22 19:39 AST 15 units/L (5-40) 04/02/22 19:39 ALT 9 units/L (7-56) 04/02/22 19:39 Alkaline Phosphatase 43 units/L (35-129) 04/02/22 19:39 Total Creatine Kinase 46 units/L (55-170) L 04/08/22 17:47 CK-MB (CK-2) 2.6 ng/mL (0.0-4.0) 04/08/22 17:47 CK-MB (CK-2) Rel Index 5.6 (0-4) H 04/08/22 17:47 Troponin T 0.031 ng/mL (0.00-0.029) H 04/08/22 17:47 C-Reactive Protein 31.60 mg/dL (0.00-1.30) H 04/04/22 04:18 Total Protein 4.6 g/dL (6.3-8.2) L 04/02/22 19:39 Albumin 2.7 g/dL (3.9-5) L 04/02/22 19:39 Albumin/Globulin Ratio 1.4 % 04/02/22 19:39 Triglycerides 80 mg/dL (2-149) 04/02/22 19:39 Cholesterol 94 mg/dL (50-199) 04/02/22 19:39 LDL Cholesterol Direct 27 mg/dL (50-130) L 04/02/22 19:39 HDL Cholesterol 47 mg/dL (40-59) 04/02/22 19:39 Cholesterol/HDL Ratio 2.00 % 04/02/22 19:39 Procalcitonin 0.08 ng/mL (<0.15) 04/04/22 04:18 Urine Color Aracely (Yellow) 04/05/22 17:45 Urine Turbidity Cloudy (Clear) 04/05/22 17:45 Urine pH 5.0 (5.0-7.0) 04/05/22 17:45 Ur Specific [place] 1.021 (1.003-1.030) 04/05/22 17:45 Urine Protein 30 mg/dl mg/dL (Negative) 04/05/22 17:45 Urine Glucose (UA) Neg mg/dL (Negative) 04/05/22 17:45 Urine Ketones Tr mg/dL (Negative) 04/05/22 17:45 Urine Blood Sm (Negative) 04/05/22 17:45 Urine Nitrite Neg (Negative) 04/05/22 17:45 Urine Bilirubin Neg (Negative) 04/05/22 17:45 Urine Urobilinogen < 2.0 mg/dL (<2.0) 04/05/22 17:45 Ur Leukocyte Esterase Tr (Negative) 04/05/22 17:45 Urine WBC (Auto) 8.0 /HPF (0.0-6.0) H 04/05/22 17:45 Urine RBC (Auto) 3.0 /HPF (0.0-6.0) 04/05/22 17:45 U Epithel Cells (Auto) 2.0 /HPF (0-13.0) 04/05/22 17:45 Urine Bacteria (Auto) 1+ /HPF (Negative) 04/02/22 Unknown Hyaline Casts 1 /LPF 04/05/22 17:45 Urine Mucus 3+ /HPF 04/05/22 17:45 Nasal Screen MRSA (PCR) Negative (Negative) 04/05/22 12:37 Vancomycin Trough 6.0 ug/mL (5.0-20.0) 04/05/22 18:53 Coronavirus (PCR) Negative (Negative) 04/07/22 14:52 Perez/IV: Voiding Method Condom Catheter Active Medications - Current Medications Current Medications: Generic Name Dose Route Start Last Admin Trade Name Freq PRN Reason Stop Dose Admin Acetaminophen 650 mg 04/02/22 23:53 04/11/22 17:31 Acetaminophen 325 Mg Tab PO 650 mg Q6H PRN Administration Pain MILD(1-3)/Fever >100.5/FAITH Acetylcysteine 200 mg 04/10/22 16:00 04/12/22 20:19 Acetylcysteine 20% Soln 4ml (200 Mg/Ml) IH Not Given Q8HRT SEGUNDO Acetylcysteine 200 mg 04/13/22 00:00 04/13/22 08:34 Acetylcysteine 10% 100 Mg/1 Ml *For Inhalation Use* INHALATION 04/15/22 00:00 Not Given Q8HRT SEGUNDO Albuterol 2.5 mg 04/06/22 16:00 04/13/22 08:33 Albuterol 2.5 Mg/3 Ml Nebu IH 2.5 mg Q8HRT SEGUNDO Administration Bisacodyl 10 mg 04/07/22 09:44 04/12/22 10:06 Bisacodyl 10 Mg Rect Supp ID 10 mg QDAY PRN Administration Constipation Dextrose 50 ml 04/06/22 17:54 Dextrose 50% In Water (25gm) 50 Ml Syringe IV Q30MIN PRN Hypoglycemia Protocol Docusate Sodium 100 mg 04/03/22 15:00 04/12/22 20:59 Docusate Sodium 100 Mg/10 Ml Oral Liqd PO 100 mg BID SEGUNDO Administration Famotidine 20 mg 04/06/22 10:00 04/12/22 20:59 Famotidine 20 Mg Tab FEEDTUBE 20 mg BID SEGUNDO Administration Fentanyl 50 mcg 04/04/22 15:56 04/13/22 01:45 Fentanyl 100 Mcg/2 Ml Inj IV 50 mcg Q2HR PRN Administration For CPOT of greater than 2 Heparin Sodium (Porcine) 5,000 unit 04/03/22 06:00 04/13/22 05:09 Heparin 5,000 Unit/1 Ml Vial SUB-Q Not Given Q8HR SEGUNDO NORepinephrine/NS 8 MG-250 ML 8 mg in 250 mls @ 3.75 mls/hr 04/02/22 22:00 04/10/22 09:20 Norepinephrine/Ns 8 Mg-250 Ml (Double Conc) IV 0 mcg/min TITRATE SEGUNDO 0 mls/hr Titration Protocol 2 MCG/MIN Dexmedetomidine HCl 400 mcg/ 104 mls @ 2.434 mls/hr 04/03/22 07:00 04/12/22 21:39 Sodium Chloride IV 0.7 mcg/kg/hr TITRATE SEGUNDO 8.518 mls/hr Administration Protocol 0.2 MCG/KG/HR Fentanyl Citrate 2,000 mcg in 100 mls @ 2.34 mls/hr 04/05/22 11:00 04/13/22 06:07 Fentanyl Drip Premix IV 4 mcg/kg/hr TITR SEGUNDO 9.36 mls/hr Administration Protocol 1 MCG/KG/HR Cefepime HCl 2 gm in 100 mls @ 200 mls/hr 04/12/22 13:00 04/13/22 00:19 Cefepime/Ns 2 Gm/100 Ml IV 04/15/22 12:59 200 mls/hr Q12H SEGUNDO Administration Protocol Sodium Phosphate 15 mmol/ 255 mls @ 125 mls/hr 04/13/22 09:00 04/13/22 08:55 Sodium Chloride IV 04/13/22 11:02 125 mls/hr ONCE ONE Administration Insulin Human Regular 0 units 04/06/22 18:00 04/13/22 06:14 Insulin Regular, Human 100 Units/1 Ml SUB-Q Not Given Q6H [facility] Protocol Magnesium Hydroxide 30 ml 04/02/22 23:53 Magnesium Hydroxide (Mom) Oral Liqd Udc PO Q4H PRN Constipation Metoprolol Tartrate 12.5 mg 04/11/22 08:55 04/13/22 05:09 Metoprolol Tartrate 25 Mg Tab FEEDTUBE Not Given Q6HR [facility] Nitroglycerin 0.2 mg 04/11/22 06:00 04/13/22 05:09 Nitroglycerin 0.2 Mg Patch 24hr TD Not Given QDAY@0600 [facility] Ondansetron HCl 4 mg 04/02/22 23:53 Ondansetron 4 Mg/2 Ml Inj IV Q8H PRN Nausea And Vomiting Polyethylene Glycol 17 gm 04/08/22 10:00 04/12/22 10:07 Polyethylene Glycol 3350 17 Gm Powder PO 17 gm QDAY SEGUNDO Administration Quetiapine Fumarate 100 mg 04/12/22 14:00 04/13/22 05:10 Quetiapine 25 Mg Tab PO 100 mg 06,1600 [facility] Administration Quetiapine Fumarate 50 mg 04/12/22 14:01 04/12/22 20:59 Quetiapine 25 Mg Tab PO 50 mg QHS SEGUNDO Administration Senna 17.6 mg 04/03/22 22:00 04/12/22 20:59 Sennosides Oral Liqd 8.8 Mg/5 Ml Oral Liqd PO 17.6 mg Q12HR SEGUNDO Administration Sodium Chloride 10 ml 04/03/22 10:00 04/12/22 20:59 Sodium Chloride 0.9% 10 Ml Flush Syringe IV 10 ml BID SEGUNDO Administration Sodium Chloride 10 ml 04/02/22 23:53 Sodium Chloride 0.9% 10 Ml Flush Syringe IV PRN PRN LINE FLUSH Nutrition/Malnutrition Assess - Dietary Evaluation Nutrition/Malnutrition Findings: Nutrition Notes Start: 04/04/22 13:13 Freq: Status: Active Protocol: Document 04/06/22 12:38 COLLEEN (Rec: 04/06/22 13:23 COLLEEN [email or web address]) Nutrition Notes Initial or Follow up Reassessment Current Diagnosis Sepsis,Respiratory Failure, Malnutrition Other Pertinent Diagnosis HAP, HFpEF, Elevated Troponin, ALS, Hypokalemia, Hypotension , ... Current Diet TF-Vital AF 1.2 Inderjit @ 50 ml/hr (since D 04/06) Labs/Tests 04/06: K 3.0, Crea <0.2, Glu 130, Ca 8.1. Pertinent Medications 04/06: KCl 40mEq, others nutritionally unremarkable. Height 5 ft 4.8 in Weight 46.8 kg [place] Body Weight (kg) 61.27 BMI 17.2 Intake Prior to Admission Poor Weight change and time frame No body weight change reported in 2 days. Weight Status Underweight Subjective/Other Information RD consult for routine F/U on TF tolerance/ continuation, and Low BMI assessment. Pt continues TF as prescribed, well tolerated, according to RN. Pt is on Mechanical ventilation, O2 saturation @ 96%, according to Physical Assessment Histroy notes. Pt presents constipation, according to Physical Assessment Histroy notes. Pt is swallow and Chewing impaired, according to Physical Assessment Histroy notes. Pt is alert and oriented, but continues on Mechanical Ventilation, according to Progress notes. Pt's Low BMI seems to correspond to a natural body composition, and not related to a sudden loss of body weight nor chronic malnutrition, since no signs of concern were mentioned in the Physical Assessment History or the Progress notes. Percent of energy/protein needs met: Prescribed TF-Vital AF 1.2 Inderjit @ 50 ml/hr provides for energy/protein needs (1,450 Kcal/91 g) during LOS, 98% Kcal; 100% AA. Burn Absent Trauma Absent GI Symptoms Constipation Difficulty In Swallowing,Chewing Food Allergy No Skin Integrity/Comment Unspecified Area of Concern. Current % PO Other Minimum of two criteria No #1 Nutrition Diagnosis Swallowing difficulty,Biting/ Chewing (masticatory) difficulty Comments: Change Nutrition Diagnostic for precision. Etiology ALS, Mechanical Ventilation. As Evidenced by Signs and Symptoms Pt currently on TF. Is patient on ventilator? Yes Is Patient Ambulatory and/or Out of Bed No REE-([facility]-confined to bed) [phone] Calculation Used for Recommendations [facility] Additional Notes Protein: 1.2-2 g/Kg IBW; 73- 122 g/day. Fluids: 1 ml/Kcal, or as per MD. Nutrition Intervention Nutrition Support: Continue TF-Vital AF 1.2 Inderjit @ 50 ml/hr. Flush: 80 ml water Q 4 hr, or as per MD. Kcal 1,450 Protein (gm) 91 Carbohydrates (gm) 134 Fat (gm) 65 Fluid (mL) 980 Fiber (gm) 6 % RDI: 98% Kcal; 100% AA. Goal #1 Provide at least 75% of energy /protein needs through Enteral Feeding during LOS. Goal #2 Maintain body weight within +/ -3% of admission body weight during LOS. Follow-Up By: 04/13/22 Additional Comments Continue monitoring TF tolerance and BM.
--- NOTE | 2022-04-10 13:34 | Progress Note ---
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 Protein calorie malnutrition Acute Bronchopneumonia HCAP Hypotension NSTEMI Hypernatremia Acute Metabolic Encephalopathy H/o Amyotrophic Lateral Sclerosis Nonverbal at Baseline Thrombocytopenia Protein Caloric Malnutrition Constipation - tracheostomy coming week - continue Seroquel for anxiolysis (will uptitrate if anxiety persist's while tracking QTc) - continue care as below otherwise; - keep PEEP at 8 to optimize alveolar recruitment in the setting of persistent basilar atelectasis while monitoring airway pressures - On going family discussions re goals of care - Daily SAT and SBT assessment as tolerated - continue to wean supplemental oxygen for target O2 sat's > 90% acutely - VAP bundle addressed - continue lung protective strategies - continue bronchodilators with pulmonary hygiene per RT - wean per pulmonary driven protocols otherwise - continue accuchecks with glycemic control per SSI (While critically ill target blood glucose of 140-180 mg/dL; avoid hypoglycemia) - sedation prn for target RASS 0 to -1 - avoid nephrotoxins, renally dose all medications - continue to avoid benzodiazepine's, reduce the possibility of delirium - AB's per ID rec's - prn analgesia per CPOT score - Maintenance of sleep-wake cycle, avoid delirium - continue enteral nutritional support at goal rate as tolerated - G.I. & VTE prophylaxis - PT/OT/ROM exercises - continue mobility protocols for pressure ulcer prophylaxis - Monitor hemodynamics closely - continue other care per attending / other consultants - discharge planning ongoing concurrently COVID SPECIFIC INTERVENTIONS - test pending .... Re-evaluate in am & prn CONDITION: CRITICAL PROGNOSIS: GUARDED CODE STATUS: FULL CODE The high probability of a clinically significant, sudden or life-threatening deterioration of the [respiratory, cardiovascular & neurologic] system(s) required my full and direct attention, intervention and personal management. The aggregate critical care time was [33] minutes without overlap. Time includes spent on; [x] Data Review and interpretation [x] Patient assessment and monitoring of vital signs [x] Documentation [x] Medication orders and management Subjective Date of service: 04/10/22 Principal diagnosis: Ac and ch hypercapnic and hypoxemic Resp Failure; ALS; HCAP; Sepsis; NSTEMI Interval history: Patient is seen today for: Acute and chronic hypercapnic and hypoxemic Respiratory Failure; ALS; HCAP; Sepsis; NSTEMI; AMS; Hypernatremia; Thrombocytopenia; Protein Caloric Malnutrition; Constipation Seen and examined at bedside; 24hour events reviewed; nursing and respiratory care staff consulted; no adverse overnight events reported to me; resting peacefully in bed; remains on MVS; seen by surgeon; some desaturations noted today and FiO2 increased to 35%; family visited; no emesis or overt aspiration Objective Vital Signs - 12hr 04/10/22 04/10/22 04/10/22 01:45 02:00 02:15 Temperature Pulse Rate 75 91 H 103 H Pulse Rate [ Anterior Bilateral Throughout] Pulse Rate [ From Monitor] Respiratory 14 13 14 Rate Respiratory Rate [Anterior Bilateral Throughout] Blood Pressure 79/42 119/70 129/73 O2 Sat by Pulse 97 93 92 Oximetry 04/10/22 04/10/22 04/10/22 02:30 02:45 03:00 Temperature Pulse Rate 92 H 95 H 81 Pulse Rate [ Anterior Bilateral Throughout] Pulse Rate [ From Monitor] Respiratory 14 14 14 Rate Respiratory Rate [Anterior Bilateral Throughout] Blood Pressure 95/51 97/61 87/47 O2 Sat by Pulse 91 94 93 Oximetry 04/10/22 04/10/22 04/10/22 03:15 03:22 03:30 Temperature Pulse Rate 75 106 H 75 Pulse Rate [ Anterior Bilateral Throughout] Pulse Rate [ From Monitor] Respiratory 14 14 Rate Respiratory Rate [Anterior Bilateral Throughout] Blood Pressure 83/44 118/71 81/42 O2 Sat by Pulse 94 95 93 Oximetry 04/10/22 04/10/22 04/10/22 03:45 04:00 04:15 Temperature 98.0 F Pulse Rate 73 69 74 Pulse Rate [ Anterior Bilateral Throughout] Pulse Rate [ 69 From Monitor] Respiratory 14 14 14 Rate Respiratory Rate [Anterior Bilateral Throughout] Blood Pressure 84/45 84/46 84/43 O2 Sat by Pulse 96 95 95 Oximetry 04/10/22 04/10/22 04/10/22 04:30 04:45 05:01 Temperature Pulse Rate 76 87 87 Pulse Rate [ Anterior Bilateral Throughout] Pulse Rate [ From Monitor] Respiratory 15 14 15 Rate Respiratory Rate [Anterior Bilateral Throughout] Blood Pressure 124/63 109/65 141/61 O2 Sat by Pulse 96 96 85 Oximetry 04/10/22 04/10/22 04/10/22 05:15 05:30 05:45 Temperature Pulse Rate 117 H 121 H 123 H Pulse Rate [ Anterior Bilateral Throughout] Pulse Rate [ From Monitor] Respiratory 14 13 15 Rate Respiratory Rate [Anterior Bilateral Throughout] Blood Pressure 141/61 125/70 125/70 O2 Sat by Pulse Oximetry 04/10/22 04/10/22 04/10/22 06:00 06:07 06:15 Temperature Pulse Rate 119 H 114 H 95 H Pulse Rate [ Anterior Bilateral Throughout] Pulse Rate [ From Monitor] Respiratory 14 15 Rate Respiratory Rate [Anterior Bilateral Throughout] Blood Pressure 115/79 115/59 115/79 O2 Sat by Pulse Oximetry 04/10/22 04/10/22 04/10/22 06:30 06:45 07:00 Temperature Pulse Rate 117 H 97 H 110 H Pulse Rate [ Anterior Bilateral Throughout] Pulse Rate [ From Monitor] Respiratory 14 14 15 Rate Respiratory Rate [Anterior Bilateral Throughout] Blood Pressure 122/74 101/55 116/77 O2 Sat by Pulse Oximetry 04/10/22 04/10/22 04/10/22 07:15 07:23 07:30 Temperature Pulse Rate 137 H 99 H 109 H Pulse Rate [ 101 H Anterior Bilateral Throughout] Pulse Rate [ From Monitor] Respiratory 19 14 Rate Respiratory 18 Rate [Anterior Bilateral Throughout] Blood Pressure 126/79 116/77 116/66 O2 Sat by Pulse 82 L 92 89 Oximetry 04/10/22 04/10/22 04/10/22 07:45 08:00 08:01 Temperature 99.9 F H Pulse Rate 92 H 69 114 H Pulse Rate [ Anterior Bilateral Throughout] Pulse Rate [ 69 From Monitor] Respiratory 14 14 16 Rate Respiratory Rate [Anterior Bilateral Throughout] Blood Pressure 92/50 110/73 O2 Sat by Pulse 93 95 96 Oximetry 04/10/22 04/10/22 04/10/22 08:15 08:30 08:45 Temperature Pulse Rate 78 72 73 Pulse Rate [ Anterior Bilateral Throughout] Pulse Rate [ From Monitor] Respiratory 14 14 14 Rate Respiratory Rate [Anterior Bilateral Throughout] Blood Pressure 92/50 89/52 91/56 O2 Sat by Pulse 95 97 99 Oximetry 04/10/22 04/10/22 04/10/22 09:00 09:15 09:30 Temperature Pulse Rate 62 76 77 Pulse Rate [ Anterior Bilateral Throughout] Pulse Rate [ From Monitor] Respiratory 14 14 14 Rate Respiratory Rate [Anterior Bilateral Throughout] Blood Pressure 94/58 94/58 103/61 O2 Sat by Pulse 99 95 95 Oximetry 04/10/22 04/10/2222 09:45 10:01 10:15 Temperature Pulse Rate 107 H 117 H 130 H Pulse Rate [ Anterior Bilateral Throughout] Pulse Rate [ From Monitor] Respiratory 21 16 19 Rate Respiratory Rate [Anterior Bilateral Throughout] Blood Pressure 110/67 141/80 141/80 O2 Sat by Pulse 94 97 89 Oximetry 04/10/22 04/10/22 04/10/22 10:30 10:45 11:00 Temperature Pulse Rate 130 H 127 H 101 H Pulse Rate [ Anterior Bilateral Throughout] Pulse Rate [ From Monitor] Respiratory 17 25 H 14 Rate Respiratory Rate [Anterior Bilateral Throughout] Blood Pressure 128/73 128/73 108/61 O2 Sat by Pulse 91 99 91 Oximetry 04/10/22 04/10/22 04/10/22 11:12 11:15 11:30 Temperature Pulse Rate 126 H 107 H 104 H Pulse Rate [ Anterior Bilateral Throughout] Pulse Rate [ From Monitor] Respiratory 16 16 Rate Respiratory Rate [Anterior Bilateral Throughout] Blood Pressure 113/69 111/69 O2 Sat by Pulse 91 94 92 Oximetry 04/10/22 04/10/22 04/10/22 11:45 12:00 12:15 Temperature 99.7 F H Pulse Rate 107 H 99 H 100 H Pulse Rate [ Anterior Bilateral Throughout] Pulse Rate [ 69 From Monitor] Respiratory 17 16 19 Rate Respiratory Rate [Anterior Bilateral Throughout] Blood Pressure 118/73 121/76 124/69 O2 Sat by Pulse 95 98 93 Oximetry 04/10/22 04/10/22 04/10/22 12:30 12:45 13:00 Temperature Pulse Rate 100 H 99 H 95 H Pulse Rate [ Anterior Bilateral Throughout] Pulse Rate [ From Monitor] Respiratory 19 18 17 Rate Respiratory Rate [Anterior Bilateral Throughout] Blood Pressure 131/62 115/68 114/68 O2 Sat by Pulse 94 93 94 Oximetry Constitutional: no acute distress, alert, other (orally intubated, on full MVS- riding set vent rate) Eyes: non-icteric ENT: oropharynx moist, other (ETT 24 cm [place]) Neck: supple, no lymphadenopathy, no JVD, other (RIJ CVL) Effort: mildly labored Ascultation: Bilateral: diminished breath sounds (right lung, base), rhonchi Percussion: Bilateral: not dull Cardiovascular: regular rate and rhythm, other (S1,S2) Gastrointestinal: normoactive bowel sounds, soft, non-tender, non-distended Integumentary: normal Extremities: no cyanosis, no edema, pink and warm, pulses normal Neurologic: pupils equal and round, other (functional quadriplegia) Psychiatric: other (flat affect; sedated) CBC and BMP: 04/11/22 04:15 04/11/22 04:15 ABG, PT/INR, D-dimer: ABG ABG pH 7.364 pH Units (7.350-7.450) 04/09/22 13:00 ABG pCO2 68.5 mm Hg 04/09/22 13:00 ABG pO2 66.6 mm Hg (80.0-90.0) L 04/09/22 13:00 ABG O2 Saturation 94.4 % (95.0-99.0) L 04/09/22 13:00 PT/INR, D-dimer PT 15.2 Sec. (12.2-14.9) H 04/07/22 03:51 INR 1.08 (0.87-1.13) 04/07/22 03:51 Abnormal lab findings: Abnormal Labs 04/02/22 04/02/22 04/02/22 19:39 19:39 19:39 WBC 14.3 H RBC Hgb Hct MCV 96 H Plt Count 104 L Lymph % (Auto) [place] % (Auto) Lymph # (Auto) [place] # (Auto) Seg Neutrophils % Seg Neuts % (Manual) 94.0 H Lymphocytes % (Manual) 1.0 L Seg Neutrophils # Seg Neutrophils # Man 13.4 H Lymphocytes # (Manual) 0.1 L PT 15.9 H INR 1.14 H ABG pH ABG pO2 ABG HCO3 ABG O2 Saturation ABG Base Excess ABG Hemoglobin Oxyhemoglobin Sodium 151 H Potassium Chloride Carbon Dioxide Creatinine 0.5 L Glucose POC Glucose Calcium 8.2 L Phosphorus Magnesium 1.60 L Total Creatine Kinase CK-MB (CK-2) Rel Index Troponin T 0.048 H C-Reactive Protein Total Protein 4.6 L Albumin 2.7 L LDL Cholesterol Direct 27 L Urine WBC (Auto) 04/02/22 04/03/22 04/03/22 19:42 05:14 06:30 WBC RBC Hgb Hct MCV Plt Count Lymph % (Auto) [place] % (Auto) Lymph # (Auto) [place] # (Auto) Seg Neutrophils % Seg Neuts % (Manual) Lymphocytes % (Manual) Seg Neutrophils # Seg Neutrophils # Man Lymphocytes # (Manual) PT INR ABG pH 7.471 H 7.496 H ABG pO2 47.8 L 91.0 H ABG HCO3 30.6 H ABG O2 Saturation 94.4 L ABG Base Excess 6.2 H ABG Hemoglobin 11.0 L 12.8 L Oxyhemoglobin 93.1 L Sodium 149 H Potassium 3.4 L Chloride Carbon Dioxide Creatinine 0.4 L Glucose POC Glucose Calcium Phosphorus Magnesium Total Creatine Kinase CK-MB (CK-2) Rel Index Troponin T C-Reactive Protein Total Protein Albumin LDL Cholesterol Direct Urine WBC (Auto) 04/04/22 04/04/22 04/04/22 04:18 04:18 05:50 WBC 11.8 H RBC Hgb Hct MCV Plt Count 132 L Lymph % (Auto) [place] % (Auto) Lymph # (Auto) [place] # (Auto) Seg Neutrophils % Seg Neuts % (Manual) Lymphocytes % (Manual) Seg Neutrophils # Seg Neutrophils # Man Lymphocytes # (Manual) PT INR ABG pH 7.517 H ABG pO2 115.5 H ABG HCO3 29.9 H ABG O2 Saturation ABG Base Excess 6.7 H ABG Hemoglobin 12.3 L Oxyhemoglobin Sodium Potassium 3.5 L Chloride Carbon Dioxide 31 H Creatinine 0.3 L Glucose 153 H POC Glucose Calcium Phosphorus 1.40 L Magnesium 1.50 L Total Creatine Kinase CK-MB (CK-2) Rel Index Troponin T C-Reactive Protein 31.60 H Total Protein Albumin LDL Cholesterol Direct Urine WBC (Auto) 04/05/22 04/05/22 04/05/22 02:50 05:25 11:28 WBC RBC Hgb Hct MCV Plt Count Lymph % (Auto) [place] % (Auto) Lymph # (Auto) [place] # (Auto) Seg Neutrophils % Seg Neuts % (Manual) Lymphocytes % (Manual) Seg Neutrophils # Seg Neutrophils # Man Lymphocytes # (Manual) PT INR ABG pH 7.455 H ABG pO2 50.7 L ABG HCO3 30.5 H ABG O2 Saturation 89.4 L ABG Base Excess 5.9 H ABG Hemoglobin 11.8 L Oxyhemoglobin 88.2 L Sodium Potassium Chloride Carbon Dioxide 32 H Creatinine 0.2 L Glucose 110 H POC Glucose 124 H Calcium 7.9 L Phosphorus Magnesium Total Creatine Kinase CK-MB (CK-2) Rel Index Troponin T C-Reactive Protein Total Protein Albumin LDL Cholesterol Direct Urine WBC (Auto) 04/05/22 04/05/22 04/06/22 17:45 Unknown 04:00 WBC RBC 3.55 L Hgb 11.1 L 11.5 L Hct 33.2 L 35.1 L MCV Plt Count 113 L 114 L Lymph % (Auto) [place] % (Auto) Lymph # (Auto) [place] # (Auto) Seg Neutrophils % Seg Neuts % (Manual) Lymphocytes % (Manual) Seg Neutrophils # Seg Neutrophils # Man Lymphocytes # (Manual) PT INR ABG pH ABG pO2 ABG HCO3 ABG O2 Saturation ABG Base Excess ABG Hemoglobin Oxyhemoglobin Sodium Potassium Chloride Carbon Dioxide Creatinine Glucose POC Glucose Calcium Phosphorus Magnesium Total Creatine Kinase CK-MB (CK-2) Rel Index Troponin T C-Reactive Protein Total Protein Albumin LDL Cholesterol Direct Urine WBC (Auto) 8.0 H 04/06/22 04/06/22 04/07/22 04:00 08:30 00:04 WBC RBC Hgb Hct MCV Plt Count Lymph % (Auto) [place] % (Auto) Lymph # (Auto) [place] # (Auto) Seg Neutrophils % Seg Neuts % (Manual) Lymphocytes % (Manual) Seg Neutrophils # Seg Neutrophils # Man Lymphocytes # (Manual) PT INR ABG pH ABG pO2 60.8 L ABG HCO3 30.5 H ABG O2 Saturation 93.3 L ABG Base Excess 4.9 H ABG Hemoglobin 12.4 L Oxyhemoglobin 92.1 L Sodium Potassium 3.0 L Chloride Carbon Dioxide Creatinine < 0.2 L Glucose 130 H POC Glucose 117 H Calcium 8.1 L Phosphorus Magnesium Total Creatine Kinase CK-MB (CK-2) Rel Index Troponin T C-Reactive Protein Total Protein Albumin LDL Cholesterol Direct Urine WBC (Auto) 04/07/22 04/07/22 04/07/22 03:51 03:51 03:51 WBC 14.6 H RBC 3.57 L Hgb 11.1 L Hct 33.2 L MCV Plt Count 118 L Lymph % (Auto) 4.3 L [place] % (Auto) 8.8 H Lymph # (Auto) 0.6 L [place] # (Auto) 1.3 H Seg Neutrophils % 86.6 H Seg Neuts % (Manual) Lymphocytes % (Manual) Seg Neutrophils # 12.7 H Seg Neutrophils # Man Lymphocytes # (Manual) PT 15.2 H INR ABG pH ABG pO2 ABG HCO3 ABG O2 Saturation ABG Base Excess ABG Hemoglobin Oxyhemoglobin Sodium 133 L Potassium Chloride 96.0 L Carbon Dioxide 31 H Creatinine 0.2 L Glucose 130 H POC Glucose Calcium 8.0 L Phosphorus Magnesium Total Creatine Kinase CK-MB (CK-2) Rel Index Troponin T C-Reactive Protein Total Protein Albumin LDL Cholesterol Direct Urine WBC (Auto) 04/07/22 04/07/22 04/08/22 04:25 09:10 04:49 WBC 16.1 H RBC 3.54 L Hgb 10.9 L Hct 33.3 L MCV Plt Count Lymph % (Auto) [place] % (Auto) Lymph # (Auto) [place] # (Auto) Seg Neutrophils % Seg Neuts % (Manual) Lymphocytes % (Manual) Seg Neutrophils # Seg Neutrophils # Man Lymphocytes # (Manual) PT INR ABG pH ABG pO2 71.0 L 63.4 L ABG HCO3 31.5 H 40.0 H ABG O2 Saturation 94.9 L ABG Base Excess 5.9 H 13.6 H ABG Hemoglobin 11.3 L 9.0 L Oxyhemoglobin 93.6 L Sodium Potassium Chloride Carbon Dioxide Creatinine Glucose POC Glucose Calcium Phosphorus Magnesium Total Creatine Kinase CK-MB (CK-2) Rel Index Troponin T C-Reactive Protein Total Protein Albumin LDL Cholesterol Direct Urine WBC (Auto) 04/08/22 04/08/22 04/08/22 04:49 09:53 10:25 WBC RBC Hgb Hct MCV Plt Count Lymph % (Auto) [place] % (Auto) Lymph # (Auto) [place] # (Auto) Seg Neutrophils % Seg Neuts % (Manual) Lymphocytes % (Manual) Seg Neutrophils # Seg Neutrophils # Man Lymphocytes # (Manual) PT INR ABG pH ABG pO2 ABG HCO3 34.7 H ABG O2 Saturation ABG Base Excess 7.9 H ABG Hemoglobin 11.0 L Oxyhemoglobin Sodium 136 L Potassium Chloride 97.7 L Carbon Dioxide 33 H Creatinine 0.2 L Glucose 155 H POC Glucose Calcium Phosphorus Magnesium Total Creatine Kinase CK-MB (CK-2) Rel Index Troponin T 0.030 H C-Reactive Protein Total Protein Albumin LDL Cholesterol Direct Urine WBC (Auto) 04/08/22 04/08/22 04/08/22 11:19 17:47 18:06 WBC RBC Hgb Hct MCV Plt Count Lymph % (Auto) [place] % (Auto) Lymph # (Auto) [place] # (Auto) Seg Neutrophils % Seg Neuts % (Manual) Lymphocytes % (Manual) Seg Neutrophils # Seg Neutrophils # Man Lymphocytes # (Manual) PT INR ABG pH ABG pO2 ABG HCO3 ABG O2 Saturation ABG Base Excess ABG Hemoglobin Oxyhemoglobin Sodium Potassium Chloride Carbon Dioxide Creatinine Glucose POC Glucose 121 H Calcium Phosphorus Magnesium Total Creatine Kinase 31 L 46 L CK-MB (CK-2) Rel Index 6.4 H 5.6 H Troponin T 0.030 H 0.031 H C-Reactive Protein Total Protein Albumin LDL Cholesterol Direct Urine WBC (Auto) 04/09/22 04/09/22 04/09/22 04:35 04:35 11:24 WBC 11.5 H RBC 3.16 L Hgb 9.9 L Hct 29.4 L MCV Plt Count 131 L Lymph % (Auto) [place] % (Auto) Lymph # (Auto) [place] # (Auto) Seg Neutrophils % Seg Neuts % (Manual) Lymphocytes % (Manual) Seg Neutrophils # Seg Neutrophils # Man Lymphocytes # (Manual) PT INR ABG pH ABG pO2 ABG HCO3 ABG O2 Saturation ABG Base Excess ABG Hemoglobin Oxyhemoglobin Sodium Potassium Chloride 97.1 L Carbon Dioxide 35 H Creatinine < 0.2 L Glucose 145 H POC Glucose 147 H Calcium Phosphorus Magnesium Total Creatine Kinase CK-MB (CK-2) Rel Index Troponin T C-Reactive Protein Total Protein Albumin LDL Cholesterol Direct Urine WBC (Auto) 04/09/22 04/09/22 04/09/22 13:00 17:32 23:48 WBC RBC Hgb Hct MCV Plt Count Lymph % (Auto) [place] % (Auto) Lymph # (Auto) [place] # (Auto) Seg Neutrophils % Seg Neuts % (Manual) Lymphocytes % (Manual) Seg Neutrophils # Seg Neutrophils # Man Lymphocytes # (Manual) PT INR ABG pH ABG pO2 66.6 L ABG HCO3 38.2 H ABG O2 Saturation 94.4 L ABG Base Excess 10.7 H ABG Hemoglobin 10.7 L Oxyhemoglobin 92.8 L Sodium Potassium Chloride Carbon Dioxide Creatinine Glucose POC Glucose 143 H 114 H Calcium Phosphorus Magnesium Total Creatine Kinase CK-MB (CK-2) Rel Index Troponin T C-Reactive Protein Total Protein Albumin LDL Cholesterol Direct Urine WBC (Auto) 04/10/22 04/10/22 04/10/22 04:48 04:48 05:34 WBC RBC 2.91 L Hgb 9.1 L Hct 27.7 L MCV 95 H Plt Count Lymph % (Auto) [place] % (Auto) Lymph # (Auto) [place] # (Auto) Seg Neutrophils % Seg Neuts % (Manual) Lymphocytes % (Manual) Seg Neutrophils # Seg Neutrophils # Man Lymphocytes # (Manual) PT INR ABG pH ABG pO2 ABG HCO3 ABG O2 Saturation ABG Base Excess ABG Hemoglobin Oxyhemoglobin Sodium Potassium Chloride 95.7 L Carbon Dioxide 38 H Creatinine < 0.2 L Glucose 118 H POC Glucose 127 H Calcium Phosphorus Magnesium Total Creatine Kinase CK-MB (CK-2) Rel Index Troponin T C-Reactive Protein Total Protein Albumin LDL Cholesterol Direct Urine WBC (Auto) Chest x-ray: image reviewed (persistent RLL small volume atelectasis) Allied health notes reviewed: nursing
--- NOTE | 2022-04-10 13:48 | Consultation ---
History of Present Illness Consult date: 04/10/22 - History of present illness History of present illness: 57 yo male with ALS and chronic, hypercapneic respiratory failure. Consulted for trach/peg. Past History Past Medical History: other (ALS) Past Surgical History: No surgical history Social history: no significant social history Family history: no significant family history Medications and Allergies Allergies Allergy/AdvReac Type Severity Reaction Status Date / Time No Known Allergies Allergy Verified 04/02/22 18:54 Home Medications Medication Instructions Recorded Confirmed Last Taken Type Baclofen [Lioresal] 10 mg PO TID 04/03/22 04/03/22 04/02/22 History Gabapentin 300 mg PO BID 04/03/22 04/03/22 04/02/22 History Glycopyrrolate [Robinul] 1 mg PO BID 04/03/22 04/03/22 04/02/22 History Hyoscyamine Subl [Levsin Sl 0.125 0.125 mg SUBLINGUAL Q4HR 04/03/22 04/03/22 Unknown History TAB] LORazepam [Ativan] 1 mg PO Q4HR PRN 04/03/22 04/03/22 04/02/22 History Nuedexta 20-10 mg Capsule 1 cap PO Q12HR 04/03/22 04/03/22 04/02/22 History Riluzole 50 mg PO DAILY 04/03/22 04/03/22 04/02/22 History Active Meds: Active Medications Acetaminophen (Acetaminophen 325 Mg Tab) 650 mg PO Q6H PRN PRN Reason: Pain MILD(1-3)/Fever >100.5/FAITH Last Admin: 04/08/22 09:33 Dose: 650 mg Acetylcysteine (Acetylcysteine 20% Soln 4ml (200 Mg/Ml)) 200 mg IH Q8HRT SEGUNDO Albuterol (Albuterol 2.5 Mg/3 Ml Nebu) 2.5 mg IH Q8HRT SEGUNDO Last Admin: 04/10/22 07:22 Dose: 2.5 mg Bisacodyl (Bisacodyl 10 Mg Rect Supp) 10 mg ND QDAY PRN PRN Reason: Constipation Dextrose (Dextrose 50% In Water (25gm) 50 Ml Syringe) 50 ml IV Q30MIN PRN; Protocol PRN Reason: Hypoglycemia Docusate Sodium (Docusate Sodium 100 Mg/10 Ml Oral Liqd) 100 mg PO BID [facility] Last Admin: 04/10/22 09:25 Dose: 100 mg Famotidine (Famotidine 20 Mg Tab) 20 mg FEEDTUBE BID [facility] Last Admin: 04/10/22 09:25 Dose: 20 mg Fentanyl (Fentanyl 100 Mcg/2 Ml Inj) 50 mcg IV Q2HR PRN PRN Reason: For CPOT of greater than 2 Last Admin: 04/10/22 10:53 Dose: 50 mcg Heparin Sodium (Porcine) (Heparin 5,000 Unit/1 Ml Vial) 5,000 unit SUB-Q Q8HR [facility] Last Admin: 04/10/22 05:59 Dose: 5,000 unit NORepinephrine/NS 8 MG-250 ML (Norepinephrine/Ns 8 Mg-250 Ml (Double Conc)) 8 mg in 250 mls @ 3.75 mls/hr IV TITRATE [facility]; Protocol Last Titration: 04/10/22 09:20 Dose: 0 mcg/min, 0 mls/hr Dexmedetomidine HCl 400 mcg/ (Sodium Chloride) 104 mls @ 2.434 mls/hr IV TITRATE [facility]; Protocol Last Admin: 04/10/22 13:37 Dose: 0.5 mcg/kg/hr, 6.084 mls/hr Fentanyl Citrate (Fentanyl Drip Premix) 2,000 mcg in 100 mls @ 2.34 mls/hr IV TITR [facility]DO; Protocol Last Admin: 04/10/22 08:31 Dose: 4 mcg/kg/hr, 9.36 mls/hr Insulin Human Regular (Insulin Regular, Human 100 Units/1 Ml) 0 units SUB-Q Q6H [facility]; Protocol Last Admin: 04/10/22 12:06 Dose: Not Given Magnesium Hydroxide (Magnesium Hydroxide (Mom) Oral Liqd Udc) 30 ml PO Q4H PRN PRN Reason: Constipation Metoprolol Tartrate (Metoprolol Tartrate 25 Mg Tab) 12.5 mg PO Q6HR [facility] Last Admin: 04/10/22 13:38 Dose: Not Given Nitroglycerin (Nitroglycerin 0.1 Mg Patch 24hr) 0.2 mg TD QDAY@0600 [facility] Last Admin: 04/10/22 06:00 Dose: Not Given Ondansetron HCl (Ondansetron 4 Mg/2 Ml Inj) 4 mg IV Q8H PRN PRN Reason: Nausea And Vomiting Polyethylene Glycol (Polyethylene Glycol 3350 17 Gm Powder) 17 gm PO QDAY [facility] Last Admin: 04/10/22 09:25 Dose: 17 gm Quetiapine Fumarate (Quetiapine 25 Mg Tab) 50 mg PO 0600,1600 [facility] Last Admin: 04/10/22 05:59 Dose: 50 mg Quetiapine Fumarate (Quetiapine 25 Mg Tab) 25 mg PO QHS [facility] Last Admin: 04/09/22 22:46 Dose: 25 mg Senna (Sennosides Oral Liqd 8.8 Mg/5 Ml Oral Liqd) 17.6 mg PO Q12HR [facility] Last Admin: 04/10/22 09:25 Dose: 17.6 mg Sodium Chloride (Sodium Chloride 0.9% 10 Ml Flush Syringe) 10 ml IV BID [facility] Last Admin: 04/10/22 09:26 Dose: 10 ml Sodium Chloride (Sodium Chloride 0.9% 10 Ml Flush Syringe) 10 ml IV PRN PRN PRN Reason: LINE FLUSH Review of Systems All systems: negative Exam Vital Signs Pulse Ox 0 L 04/02/22 19:16 - General physical appearance Positive: well developed, no distress, chronically ill - Eyes Positive: PERRL, normal occular movement - ENT Positive: normal pinna, normal nares, normal mucosa, no hearing loss, no congestion - Neck Positive: no masses, no bruits, trachea midline, no venous distension - Respiratory Positive: normal expansion, normal respiratory effort, clear to auscultation - Cardiovascular Rhythm: regular Heart Sounds: Present: S1 & S2. Absent: rub, click - Extremities Extremities: no ischemia, pulses symmetrical, No edema - Breasts Breasts: normal, no mass, no skin changes - Abdomen Abdomen: Present: soft, bowel sounds normal. Absent: tender, distended Hernia: none - Genitourinary Male Genitourinary: normal Female Genitourinary: normal - Integumentary no rash, no growths, no abnormal pigmentation - Neurologic Neurologic: alert and oriented to time, place and person, motor strength and sensation are grossly intact - Musculoskeletal normal gait, normal posture - Psychiatric Psychiatric: appropriate mood/affect, intact judgment & insight Results - Labs 04/10/22 04:48 04/10/22 04:48 Abnormal lab results 04/07/22 04/09/22 04/09/22 Range/Units 09:10 17:32 23:48 RBC (3.65-5.03) M/mm3 Hgb (11.8-15.2) gm/dl Hct (35.5-45.6) % MCV (84-94) fl ABG pO2 63.4 L (80.0-90.0) mm Hg ABG HCO3 40.0 H (20.0-26.0) mmol/L ABG O2 Saturation 94.9 L (95.0-99.0) % ABG Base Excess 13.6 H (-2.0-3.0) mmol/L ABG Hemoglobin 9.0 L (14.0-18.0) gm/dl Oxyhemoglobin 93.6 L (95.0-99.0) % Chloride (98-107) mmol/L Carbon Dioxide (22-30) mmol/L Creatinine (0.8-1.3) mg/dL Glucose (75-100) mg/dL POC Glucose 143 H 114 H (70-105) mg/dL 04/10/22 04/10/22 04/10/22 Range/Units 04:48 04:48 05:34 RBC 2.91 L (3.65-5.03) M/mm3 Hgb 9.1 L (11.8-15.2) gm/dl Hct 27.7 L (35.5-45.6) % MCV 95 H (84-94) fl ABG pO2 (80.0-90.0) mm Hg ABG HCO3 (20.0-26.0) mmol/L ABG O2 Saturation (95.0-99.0) % ABG Base Excess (-2.0-3.0) mmol/L ABG Hemoglobin (14.0-18.0) gm/dl Oxyhemoglobin (95.0-99.0) % Chloride 95.7 L (98-107) mmol/L Carbon Dioxide 38 H (22-30) mmol/L Creatinine < 0.2 L (0.8-1.3) mg/dL Glucose 118 H (75-100) mg/dL POC Glucose 127 H (70-105) mg/dL Diabetes panel 04/10/22 Range/Units 04:48 Sodium 138 (137-145) mmol/L Potassium 4.0 (3.6-5.0) mmol/L Chloride 95.7 L (98-107) mmol/L Carbon Dioxide 38 H (22-30) mmol/L BUN 12 (9-20) mg/dL Creatinine < 0.2 L (0.8-1.3) mg/dL Glucose 118 H (75-100) mg/dL Calcium 8.4 (8.4-10.2) mg/dL Calcium panel 04/10/22 Range/Units 04:48 Calcium 8.4 (8.4-10.2) mg/dL Pituitary panel 04/10/22 Range/Units 04:48 Sodium 138 (137-145) mmol/L Potassium 4.0 (3.6-5.0) mmol/L Chloride 95.7 L (98-107) mmol/L Carbon Dioxide 38 H (22-30) mmol/L BUN 12 (9-20) mg/dL Creatinine < 0.2 L (0.8-1.3) mg/dL Glucose 118 H (75-100) mg/dL Calcium 8.4 (8.4-10.2) mg/dL Adrenal panel 04/10/22 Range/Units 04:48 Sodium 138 (137-145) mmol/L Potassium 4.0 (3.6-5.0) mmol/L Chloride 95.7 L (98-107) mmol/L Carbon Dioxide 38 H (22-30) mmol/L BUN 12 (9-20) mg/dL Creatinine < 0.2 L (0.8-1.3) mg/dL Glucose 118 H (75-100) mg/dL Calcium 8.4 (8.4-10.2) mg/dL Assessment and Plan - Patient Problems (1) Respiratory failure Current Visit: Yes Status: Acute Plan to address problem: 1) Will schedule percutaneous tracheostomy and PEG as OR availability allows. 2) Consent was obtained from the pt's .
[2022-04-11] MEDS: ALBUTEROL 2.5 MG/3 ML NEBU IH SCH ×3 (00:15→16:12)
[2022-04-11] MEDS: INSULIN REGULAR, HUMAN 100 UNITS/1 ML SUB-Q SCH ×5 (02:14→23:22)
[2022-04-11] MEDS: fentaNYL DRIP Premix 2,000 MCG/100 ML BAG IV SCH ×3 (03:00→19:11)
[2022-04-11 04:46] LABS: Hematocrit 27.9 % (35.5-45.6); Hemoglobin 9.2 gm/dl (11.8-15.2); Mean Corpuscular HGB Conc 33 % (32-34); Mean Corpuscular Volume 94 fl (84-94); Platelet Count 187 K/mm3 (140-440); Red Blood Count 2.98 M/mm3 (3.65-5.03)
[2022-04-11 04:59] LABS: Blood Urea Nitrogen 13 mg/dL (9-20); Calcium 8.3 mg/dL (8.4-10.2); Hemolysis Index 0
[2022-04-11 05:16] LABS: BUN/Creatinine Ratio 65
[2022-04-11] MEDS: HEPARIN 5,000 UNIT/1 ML VIAL SUB-Q SCH ×3 (06:04→21:44)
[2022-04-11] MEDS: METOPROLOL TARTRATE 25 MG TAB PO SCH ×2 (06:05)
[2022-04-11] MEDS: QUEtiapine 25 MG TAB PO SCH ×3 (06:14→21:44)
[2022-04-11] MEDS: NITROGLYCERIN 0.2 MG PATCH 24HR TD SCH (07:54)
--- NOTE | 2022-04-11 10:15 | Progress Note ---
Assessment and Plan - Patient Problems (1) Elevated troponin Current Visit: Yes Status: Acute (2) History of amyotrophic lateral sclerosis Current Visit: No Status: Acute Subjective Date of service: 04/11/22 Principal diagnosis: Ac and ch hypercapnic and hypoxemic Resp Failure; ALS; HCAP; Sepsis; NSTEMI Interval history: ALERT,,VENT Objective Vital Signs Temp Pulse Pulse Pulse Pulse Resp Resp 04/11/22 08:00 82 04/11/22 07:43 85 82 16 04/11/22 06:15 81 14 04/11/22 06:05 92 H 04/11/22 06:00 97 H 14 04/11/22 05:45 95 H 14 04/11/22 05:30 93 H 16 04/11/22 05:15 94 H 14 04/11/22 05:00 99 H 15 04/11/22 04:45 100 H 14 04/11/22 04:30 107 H 15 04/11/22 04:15 106 H 15 04/11/22 04:00 108 H 112 H 15 04/11/22 03:52 98.4 F 04/11/22 03:45 114 H 15 04/11/22 03:30 110 H 15 04/11/22 03:23 115 H 04/11/22 03:15 111 H 15 04/11/22 03:00 109 H 14 04/11/22 02:45 111 H 14 04/11/22 02:30 114 H 15 04/11/22 02:15 115 H 15 04/11/22 02:00 114 H 15 04/11/22 01:45 112 H 15 04/11/22 01:30 110 H 15 04/11/22 01:15 111 H 15 04/11/22 01:00 111 H 16 04/11/22 00:45 115 H 15 04/11/22 00:32 04/11/22 00:30 139 H 17 04/11/22 00:29 102 H 102 H 16 04/11/22 00:15 140 H 17 04/11/22 00:00 141 H 112 H 15 04/10/22 23:52 98.5 F 04/10/22 23:45 135 H 16 04/10/22 23:37 133 H 14 04/10/22 23:30 136 H 25 H 04/10/22 23:15 140 H 20 04/10/22 23:00 115 H 18 04/10/22 22:45 131 H 19 04/10/22 22:30 125 H 22 04/10/22 22:15 133 H 26 H 04/10/22 22:00 129 H 24 04/10/22 21:45 124 H 21 04/10/22 21:30 106 H 14 04/10/22 21:15 107 H 15 04/10/22 21:00 100 H 15 04/10/22 20:45 100 H 14 04/10/22 20:41 107 H 04/10/22 20:30 102 H 15 04/10/22 20:15 106 H 15 04/10/22 20:00 97.5 F L 117 H 112 H 15 04/10/22 19:45 119 H 20 04/10/22 19:30 124 H 16 04/10/22 19:15 116 H 17 04/10/22 19:00 97 H 17 04/10/22 18:45 111 H 19 04/10/22 18:30 101 H 17 04/10/22 18:15 116 H 16 04/10/22 18:00 107 H 20 04/10/22 17:45 96 H 15 04/10/22 17:30 102 H 15 04/10/22 17:15 108 H 19 04/10/22 17:00 83 15 04/10/22 16:45 82 26 H 04/10/22 16:30 95 H 17 04/10/22 16:15 111 H 18 04/10/22 16:00 99.1 F 101 H 69 20 04/10/22 15:45 92 H 15 04/10/22 15:37 99.0 F 04/10/22 15:31 95 H 25 H 04/10/22 15:26 104 H 107 H 104 H 16 04/10/22 15:15 101 H 19 04/10/22 15:00 108 H 17 04/10/22 14:45 97 H 20 04/10/22 14:30 89 18 04/10/22 14:15 100 H 20 04/10/22 14:00 94 H 17 04/10/22 13:45 96 H 17 04/10/22 13:30 95 H 16 04/10/22 13:15 92 H 15 04/10/22 13:00 95 H 17 04/10/22 12:45 99 H 18 04/10/22 12:30 100 H 19 04/10/22 12:15 100 H 19 04/10/22 12:00 99.7 F H 99 H 69 16 04/10/22 11:45 107 H 17 04/10/22 11:30 104 H 16 04/10/22 11:15 107 H 16 04/10/22 11:12 126 H 04/10/22 11:00 101 H 14 04/10/22 10:45 127 H 25 H 04/10/22 10:30 130 H 17 04/10/22 10:15 130 H 19 Resp BP Pulse Ox 04/11/22 08:00 95 04/11/22 07:43 14 04/11/22 06:15 85/45 95 04/11/22 06:05 98/58 04/11/22 06:00 98/58 96 04/11/22 05:45 100/59 95 04/11/22 05:30 98/60 95 06 05:15 96/58 94 04/11/22 05:00 109/59 95 06 04:45 99/59 93 04/11/22 04:30 104/60 95 04/11/22 04:15 112/66 95 04/11/22 04:00 109/56 94 04/11/22 03:52 06 03:45 116/66 96 04/11/22 03:30 108/64 94 06 03:23 103/61 96 04/11/22 03:15 125/70 96 04/11/22 03:00 105/59 94 0605 02:45 111/61 94 04/11/22 02:30 107/63 95 04/11/22 02:15 103/61 96 05 02:00 111/61 95 06 01:45 108/59 94 04/11/22 01:30 104/60 94 0605 01:15 100/55 95 04/11/22 01:00 101/56 96 05 00:45 109/60 96 04/11/22 00:32 95 0605 00:30 124/72 94 04/11/22 00:29 16 04/11/22 00:15 141/72 91 04/11/22 00:00 142/75 93 04/10/22 23:52 06 23:45 144/77 93 04/10/22 23:37 139/78 96 04/10/22 23:30 139/78 89 04/10/22 23:15 137/69 90 04/10/22 23:00 135/72 95 04/10/22 22:45 142/85 95 04/10/22 22:30 145/77 97 04/10/22 22:15 141/75 94 04/10/22 22:00 132/73 97 04/10/22 21:45 131/70 95 04/10/22 21:30 115/67 94 04/10/22 21:15 125/70 95 04/10/22 21:00 103/55 93 04/10/22 20:45 100/49 93 04/10/22 20:41 113/64 97 04/10/22 20:30 101/51 96 04/10/22 20:15 100/53 98 04/10/22 20:00 112/59 100 04/10/22 19:45 125/64 90 04/10/22 19:30 130/69 85 04/10/22 19:15 144/74 82 L 04/10/22 19:00 121/73 97 04/10/22 18:45 121/73 96 04/10/22 18:30 115/68 95 04/10/22 18:15 134/75 94 04/10/22 18:00 113/64 97 04/10/22 17:45 107/62 97 04/10/22 17:30 122/68 95 04/10/22 17:15 118/66 96 04/10/22 17:00 115/62 96 04/10/22 16:45 132/74 93 04/10/22 16:30 121/65 91 04/10/22 16:15 132/74 97 04/10/22 16:00 133/75 92 04/10/22 15:45 147/75 92 04/10/22 15:37 06 15:31 131/74 92 04/10/22 15:26 16 113/62 95 04/10/22 15:15 131/74 96 04/10/22 15:00 133/76 98 04/10/22 14:45 109/70 94 04/10/22 14:30 115/67 95 04/10/22 14:15 121/66 96 04/10/22 14:00 113/62 96 04/10/22 13:45 115/70 98 04/10/22 13:30 114/69 98 04/10/22 13:15 104/65 95 04/10/22 13:00 114/68 94 04/10/22 12:45 115/68 93 04/10/22 12:30 131/62 94 04/10/22 12:15 124/69 93 04/10/22 12:00 121/76 98 04/10/22 11:45 118/73 95 04/10/22 11:30 111/69 92 04/10/22 11:15 113/69 94 04/10/22 11:12 91 04/10/22 11:00 108/61 91 04/10/22 10:45 128/73 99 04/10/22 10:30 128/73 91 04/10/22 10:15 141/80 89 - Physical Examination General: Other (Intubated on mechanical ventilator) HEENT: Positive: PERRL, Normocephaly, Other (ET-tube in place) Neck: Positive: neck supple, trachea midline (intubated). Negative: JVD/HJR Cardiac: Positive: Reg Rate and Rhythm, Tachycardia Lungs: Positive: Rhonchi Neuro: Positive: Other (Awake, intubated on the vent) Abdomen: Positive: Soft Skin: Positive: Clear Extremities: Present: Other (TR.EDEMA). Absent: edema (NO) - Labs and Meds CBC 04/11/22 Range/Units 04:15 WBC 17.2 H (4.5-11.0) K/mm3 RBC 2.98 L (3.65-5.03) M/mm3 Hgb 9.2 L (11.8-15.2) gm/dl Hct 27.9 L (35.5-45.6) % Plt Count 187 (140-440) K/mm3 Comprehensive Metabolic Panel 04/11/22 Range/Units 04:15 Sodium 138 (137-145) mmol/L Potassium 4.0 (3.6-5.0) mmol/L Chloride 96.1 L (98-107) mmol/L Carbon Dioxide 35 H (22-30) mmol/L BUN 13 (9-20) mg/dL Creatinine < 0.2 L (0.8-1.3) mg/dL Glucose 138 H (75-100) mg/dL Calcium 8.3 L (8.4-10.2) mg/dL - Allied health notes Allied health notes reviewed: nursing
[2022-04-11] MEDS: POLYETHYLENE GLYCOL 3350 17 GM POWDER PO SCH (10:43)
[2022-04-11] MEDS: DOCUSATE SODIUM 100 MG/10 ML ORAL LIQD PO SCH ×2 (10:43→21:44)
[2022-04-11] MEDS: SENNOSIDES ORAL LIQD 8.8 MG/5 ML ORAL LIQD PO SCH ×2 (10:43→21:43)
[2022-04-11] MEDS: FAMOTIDINE 20 MG TAB FEEDTUBE SCH ×2 (10:43→21:44)
[2022-04-11] MEDS: fentaNYL 100 MCG/2 ML INJ IV PRN ×3 (11:32→21:44)
--- NOTE | 2022-04-11 11:34 | Electrocardiograph Report ---
[facility] Test Date: 2022-04-02 Test Time: 22:49:43 Pat Name: SHARLENE TAYLOR Department: Room: A259 1 Gender: M [employer] Att[employer]: KOJO : 1965 Requested By: LUMA BEE Order Number: [id number] Reading MD: Papi Askew Measurements Intervals [place] Rate: 135 P: 109 VA: 148 QRS: 105 QRSD: 80 T: -89 QT: 304 QTc: 456 Interpretive Statements Right and left arm electrode reversal, interpretation assumes no reversal Sinus tachycardia Right axis deviation NSSTTW'S CANNOT RULE OUT ASMI No previous ECG available for comparison Electronically Signed On 04-11-2022 11:33:24 EDT by Papi Askew
--- NOTE | 2022-04-11 11:54 | Progress Note ---
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, recently hospitalized at [facility] admitted for acute hypoxemic respiratory failure 2/2 pneumonia Neuro: h/o ALS -Sedated with precedex and fentanyl gtt -RASS goal 0 to -1 -Reorientation as needed -Maintain sleep-wake cycle -As needed analgesia -CT head with no acute intracranial process -Per family patient is nonverbal at baseline but responsive -Seroquel Cardiac: Hypotension, Suspect ischemic coronary artery disease, h/o cardiomyopathy -Cardiology consulted, appreciate recommendations -continue conservative management -Blood pressure monitoring per protocol -s/p Vasopressor support with Levophed -Echocardiogram shows ejection fraction of 40 to 45%, mild global hypokinesis of left ventricle -Nitro patch, BB Respiratory: Acute hypoxic respiratory failure -CCM consulted, appreciate recommendations -Intubated on 04/02 with a 7.50 ETT attempt at the lips -A.m. vent settings: Assist-control/ PRVC TV 400, rate 14, Peep 8, FiO2 45% -See RT notes for titration -Chest US with possible thoracentisis completed -not enough fluid to drain -CPT and mucomyst -A.m. ABG and CXR noted -VAP bundle -SPO2 monitoring -Surgery consulted for trach/peg GI: Moderate protein calorie malnutrition -24 hours +398 mL -PPI -NTR consulted for tube feedings -BR: Senokot/colace, MiraLAX : Metabolic alkalosis -Strict intake and output -Renally dose medications -Avoid nephrotoxic medications -Daily weights -trend BMP ID: Sepsis, Acute Bronchopneumonia, HAP (Pseudomonas and Enterobacter tracheal aspirate), blood culture with bacillus species -Infectious disease consulted, appreciate recommendation -Per infectious disease patient was recently admitted to [facility] but discharged home with home hospice and not giving antibiotics -Antibiotic therapy with cefepime -Tracheal aspirate with Pseudomonas aeruginosa, Enterobacter aerogenes -04/02 blood culture with bacillus species, 04/05 blood culture NGTD -CRP 31.6, procalcitonin 0.08 -Monitor WBC and temperature curve Endo: NAD -Avoid hypoglycemia -SSI -Accu-Cheks q 6 Heme: Leukocytosis -Heparin subq -Trend CBC -Transfuse hemoglobin less than 7 -SCDs to BLE while in bed Advance Care Planning - Disease education, care plan, diagnoses, and prognosis were discussed patient's , Carly Lopez, and patient daughter, Kaylee Warren, who translated for #[phone]. They reported that patient was following at [place] for his ALS and during recent hospitalization at [facility] they were told nothing else can be offered to patient at this time and patient was discharge home with home hospice and PO morphine. First hospice visit was on , 04/01 however, patient became unresponsive 04/02 and they brought in to the hospital. - Goal of care and code status were also addressed at that time. Family wants to wait for a couple days to see how patient respond to current treatment before making a decision. All questions and concerns were addressed at this time. Patient family acknowledged understanding and agreement with care plan. -Patient remains a FULL CODE status. -04/05: Discussion at bedside with interpreting service with Dr. Valdivia and family state they would discuss next steps amongst themselves and let healthcare team know of decisions -04/06: extensive discussion with family ( and son) with Dr. Grayson regarding goals of care -04/08: Extensive discussion with with the use of endocrinology specialist line regarding goals of care; no decision made. Possible consult to surgery for trach/PEG early next week. -04/09: Discussion with and her sister with Dr. Grayson and then with Dr. Pineda-> Consulted surgery for trach/peg The high probability of a clinically significant, sudden or life threatening deterioration of the [multiple] system(s) required my full and direct attention, intervention and personal management. The aggregate critical care time was [90] minutes. 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 Work-up in the emergency department revealed leukocytosis, elevated troponin and hyponatremia and CXR revealed moderate to large pleural effusion on the right. Patient was having agonal breathing in the emergency department and was intubated. Patient was admitted to the hospitalist service with consults to [facility], cardiology and infectious disease for further work-up. Hospital Course to Date: 04/03: Intubated and Sedated on versed gtt, RASS-5. CT head/brain noted with no acute intracranial abnormality. Plan to initiated precededx gtt and wean off versed for a RASS goal of 0 to -2. CT chect also reviewed, findings are most consistent with acute bronchopneumonia. Continue empiric IV Abx, vent adjustment per CCM. ID consulted. Continue to F/U on cultures. Titrate pressor for MAP above 65. Medical records requested from [facility]. 04/04: Remains stable on the vent, easily arousable on precedex gtt, not following commands. Plan for SAT/SBT today. PRN analgesia for CPOT greater than 3. Fevers improved, cultures and procal pending. Continue current IV abx, ID also consulted. Remains on low dose pressors, titrate pressors for a MAP above 65. 04/05: Long discussion with family with use of translation phone with [facility] regarding goals of care. Family to have meeting amongst themselves and informed care team of decisions. Fentanyl drip added for respiratory distress. Remains on Precedex drip. Antibiotics per ID. Given 2L NS bolus with levophed gtt 04/06: Family discussion with Dr. Grayson for goals of care. CXR shows possible mucus plug, continue CPT as FiO2 is being able to be weaned. Potassium repleted. Weaning fentnyl gtt. 04/07: Ultrasound guided thoracentesis today scheduled, inadequate amount of pleural effusion on so not completed. Patient was started on Levophed overnight which was weaned off this morning however had to be started twice a day. Remains on fentanyl and Precedex. Cardiology discontinued BB and ACEi in setting of hypotension. 04/08: COVID-19 PCR negative. Routine EEG ordered by cardiology which showed ST changes, cardiology aware. They will continue conservative treatment. Repeat troponins 0.030 which are less than admit of 0.048. Dr. Grayson had a long discussion with with the use of endocrinology specialist today at bedside and has not made a decision regarding goals of care. Possible consult to surgery for trach/PEG early next week. Continues to require Precedex and fentanyl drip for sedation. Carvedilol/lisinopril discontinued as patient is continuously on Levophed. 04/09: No acute events reported overnight, remains on fentanyl, Precedex and Levophed drips. Dr. Grayson and Dr. Pineda updated family at bedside extensively today. Consulted surgery for trach/PEG. COVID-19 PCR negative. 04/10: Patient noted to have desaturation episodes, FiO2 increased slightly to 35%. Will add Mucomyst. Remains on fentanyl and Precedex. Off of Levophed. Surgery consulted for trach/PEG. 04/11: FiO2 increased over night likely related to hypoxia, continues on fent gtt, weaning precedex gtt as he is also on Seroquel. Will d/w CCM re scheduled or prn oxycodone Hospitalist Physical - Constitutional Vitals: Temp Pulse Resp BP Pulse Ox 98.4 F 82 16 85/45 95 04/11/22 03:52 04/11/22 08:00 04/11/22 07:43 04/11/22 06:15 04/11/22 08:00 General appearance: Present: no acute distress, cachectic, other (Intubated, easily arousable on precedex gtt) - EENT Eyes: Present: PERRL, EOM intact ENT: dentition normal - Neck Neck: Present: normal ROM - Respiratory Respiratory effort: normal Respiratory: bilateral: diminished, rhonchi - Cardiovascular Rhythm: regular Heart Sounds: Present: S1 & S2. Absent: systolic murmur, diastolic murmur - Extremities Extremities: no ischemia, pulses intact, pulses symmetrical, No edema, normal temperature, normal color Peripheral Pulses: within normal limits - Abdominal General gastrointestinal: soft, non-tender, non-distended, normal bowel sounds - Integumentary Integumentary: Present: warm, dry - Psychiatric Psychiatric: agitated - Neurologic Neurologic: CNII-XII intact, other (moves BUE extremites) HEART Score - HEART Score Troponin: Troponin T 0.031 ng/mL (0.00-0.029) H 04/08/22 17:47 Results - Labs CBC & Chem 7: 04/11/22 04:15 04/11/22 04:15 Labs: Laboratory Last Values WBC 17.2 K/mm3 (4.5-11.0) H 04/11/22 04:15 RBC 2.98 M/mm3 (3.65-5.03) L 04/11/22 04:15 Hgb 9.2 gm/dl (11.8-15.2) L 04/11/22 04:15 Hct 27.9 % (35.5-45.6) L 04/11/22 04:15 MCV 94 fl (84-94) 04/11/22 04:15 MCH 31 pg (28-32) 04/11/22 04:15 MCHC 33 % (32-34) 04/11/22 04:15 RDW 14.0 % (13.2-15.2) 04/11/22 04:15 Plt Count 187 K/mm3 (140-440) 04/11/22 04:15 Lymph % (Auto) 4.3 % (13.4-35.0) L 04/07/22 03:51 Harnett % (Auto) 8.8 % (0.0-7.3) H 04/07/22 03:51 Eos % (Auto) 0.1 % (0.0-4.3) 04/07/22 03:51 Baso % (Auto) 0.2 % (0.0-1.8) 04/07/22 03:51 Lymph # (Auto) 0.6 K/mm3 (1.2-5.4) L 04/07/22 03:51 Harnett # (Auto) 1.3 K/mm3 (0.0-0.8) H 04/07/22 03:51 Eos # (Auto) 0.0 K/mm3 (0.0-0.4) 04/07/22 03:51 Baso # (Auto) 0.0 K/mm3 (0.0-0.1) 04/07/22 03:51 Add Manual Diff Complete 04/02/22 19:39 Total Counted 100 04/02/22 19:39 Seg Neutrophils % 86.6 % (40.0-70.0) H 04/07/22 03:51 Seg Neuts % (Manual) 94.0 % (40.0-70.0) H 04/02/22 19:39 Band Neutrophils % 0 % 04/02/22 19:39 Lymphocytes % (Manual) 1.0 % (13.4-35.0) L 04/02/22 19:39 Reactive Lymphs % (Man) 0 % 04/02/22 19:39 Monocytes % (Manual) 5.0 % (0.0-7.3) 04/02/22 19:39 Eosinophils % (Manual) 0 % (0.0-4.3) 04/02/22 19:39 Basophils % (Manual) 0 % (0.0-1.8) 04/02/22 19:39 Metamyelocytes % 0 % 04/02/22 19:39 Myelocytes % 0 % 04/02/22 19:39 Promyelocytes % 0 % 04/02/22 19:39 Blast Cells % 0 % 04/02/22 19:39 Nucleated RBC % Not Reportable 04/02/22 19:39 Seg Neutrophils # 12.7 K/mm3 (1.8-7.7) H 04/07/22 03:51 Seg Neutrophils # Man 13.4 K/mm3 (1.8-7.7) H 04/02/22 19:39 Band Neutrophils # 0.0 K/mm3 04/02/22 19:39 Lymphocytes # (Manual) 0.1 K/mm3 (1.2-5.4) L 04/02/22 19:39 Abs React Lymphs (Man) 0.0 K/mm3 04/02/22 19:39 Monocytes # (Manual) 0.7 K/mm3 (0.0-0.8) 04/02/22 19:39 Eosinophils # (Manual) 0.0 K/mm3 (0.0-0.4) 04/02/22 19:39 Basophils # (Manual) 0.0 K/mm3 (0.0-0.1) 04/02/22 19:39 Metamyelocytes # 0.0 K/mm3 04/02/22 19:39 Myelocytes # 0.0 K/mm3 04/02/22 19:39 Promyelocytes # 0.0 K/mm3 04/02/22 19:39 Blast Cells # 0.0 K/mm3 04/02/22 19:39 WBC Morphology Not Reportable 04/02/22 19:39 Hypersegmented Neuts Not Reportable 04/02/22 19:39 Hyposegmented Neuts Not Reportable 04/02/22 19:39 Hypogranular Neuts Not Reportable 04/02/22 19:39 Smudge Cells Not Reportable 04/02/22 19:39 Toxic Granulation Not Reportable 04/02/22 19:39 Toxic Vacuolation Not Reportable 04/02/22 19:39 Dohle Bodies Not Reportable 04/02/22 19:39 Pelger-Huet Anomaly Not Reportable 04/02/22 19:39 Terry Rods Not Reportable 04/02/22 19:39 Platelet Estimate Consistent w auto 04/02/22 19:39 Clumped Platelets Not Reportable 04/02/22 19:39 Plt Clumps, EDTA Not Reportable 04/02/22 19:39 Large Platelets Not Reportable 04/02/22 19:39 Giant Platelets Not Reportable 04/02/22 19:39 Platelet Satelliting Not Reportable 04/02/22 19:39 Plt Morphology Comment Not Reportable 04/02/22 19:39 RBC Morphology Not Reportable 04/02/22 19:39 Dimorphic RBCs Not Reportable 04/02/22 19:39 Polychromasia Not Reportable 04/02/22 19:39 Hypochromasia Not Reportable 04/02/22 19:39 Poikilocytosis Not Reportable 04/02/22 19:39 Anisocytosis 1+ 04/02/22 19:39 Microcytosis Not Reportable 04/02/22 19:39 Macrocytosis Not Reportable 04/02/22 19:39 Spherocytes Not Reportable 04/02/22 19:39 Pappenheimer Bodies Not Reportable 04/02/22 19:39 Sickle Cells Not Reportable 04/02/22 19:39 Target Cells Not Reportable 04/02/22 19:39 Tear Drop Cells Not Reportable 04/02/22 19:39 Ovalocytes Not Reportable 04/02/22 19:39 Helmet Cells Not Reportable 04/02/22 19:39 Patric[place] Bodies Not Reportable 04/02/22 19:39 [place] Rings Not Reportable 04/02/22 19:39 Cheikh Cells Not Reportable 04/02/22 19:39 Bite Cells Not Reportable 04/02/22 19:39 Crenated Cell Not Reportable 04/02/22 19:39 Elliptocytes Not Reportable 04/02/22 19:39 Acanthocytes (Spur) Not Reportable 04/02/22 19:39 Rouleaux Not Reportable 04/02/22 19:39 Hemoglobin C Crystals Not Reportable 04/02/22 19:39 Schistocytes Not Reportable 04/02/22 19:39 Malaria parasites Not Reportable 04/02/22 19:39 [place] Bodies Not Reportable 04/02/22 19:39 Hem Pathologist Commnt No 04/02/22 19:39 PT 15.2 Sec. (12.2-14.9) H 04/07/22 03:51 INR 1.08 (0.87-1.13) 04/07/22 03:51 APTT 35.7 Sec. (24.2-36.6) 04/07/22 03:51 ABG pH 7.364 pH Units (7.350-7.450) 04/09/22 13:00 ABG pCO2 68.5 mm Hg 04/09/22 13:00 ABG pO2 66.6 mm Hg (80.0-90.0) L 04/09/22 13:00 ABG HCO3 38.2 mmol/L (20.0-26.0) H 04/09/22 13:00 ABG O2 Saturation 94.4 % (95.0-99.0) L 04/09/22 13:00 ABG O2 Content 14.0 (0.0-44) 04/09/22 13:00 ABG Base Excess 10.7 mmol/L (-2.0-3.0) H 04/09/22 13:00 ABG Hemoglobin 10.7 gm/dl (14.0-18.0) L 04/09/22 13:00 ABG Carboxyhemoglobin 1.3 % (0.0-5.0) 04/09/22 13:00 ABG Methemoglobin 0.4 % (0.0-1.5) 04/09/22 13:00 Oxyhemoglobin 92.8 % (95.0-99.0) L 04/09/22 13:00 FiO2 30 % 04/09/22 13:00 Sodium 138 mmol/L (137-145) 04/11/22 04:15 Potassium 4.0 mmol/L (3.6-5.0) 04/11/22 04:15 Chloride 96.1 mmol/L (98-107) L 04/11/22 04:15 Carbon Dioxide 35 mmol/L (22-30) H 04/11/22 04:15 Anion Gap 11 mmol/L 04/11/22 04:15 BUN 13 mg/dL (9-20) 04/11/22 04:15 Creatinine < 0.2 mg/dL (0.8-1.3) L 04/11/22 04:15 Estimated GFR > 60 ml/min 04/11/22 04:15 BUN/Creatinine Ratio 65 % 04/11/22 04:15 Glucose 138 mg/dL (75-100) H 04/11/22 04:15 POC Glucose 129 mg/dL (70-105) H 04/11/22 05:31 Lactic Acid 1.90 mmol/L (0.7-2.0) 04/02/22 19:39 Calcium 8.3 mg/dL (8.4-10.2) L 04/11/22 04:15 Phosphorus 3.50 mg/dL (2.5-4.5) D 04/05/22 02:50 Magnesium 2.00 mg/dL (1.7-2.3) 04/05/22 02:50 Total Bilirubin 0.80 mg/dL (0.1-1.2) 04/02/22 19:39 AST 15 units/L (5-40) 04/02/22 19:39 ALT 9 units/L (7-56) 04/02/22 19:39 Alkaline Phosphatase 43 units/L (35-129) 04/02/22 19:39 Total Creatine Kinase 46 units/L (55-170) L 04/08/22 17:47 CK-MB (CK-2) 2.6 ng/mL (0.0-4.0) 04/08/22 17:47 CK-MB (CK-2) Rel Index 5.6 (0-4) H 04/08/22 17:47 Troponin T 0.031 ng/mL (0.00-0.029) H 04/08/22 17:47 C-Reactive Protein 31.60 mg/dL (0.00-1.30) H 04/04/22 04:18 Total Protein 4.6 g/dL (6.3-8.2) L 04/02/22 19:39 Albumin 2.7 g/dL (3.9-5) L 04/02/22 19:39 Albumin/Globulin Ratio 1.4 % 04/02/22 19:39 Triglycerides 80 mg/dL (2-149) 04/02/22 19:39 Cholesterol 94 mg/dL (50-199) 04/02/22 19:39 LDL Cholesterol Direct 27 mg/dL (50-130) L 04/02/22 19:39 HDL Cholesterol 47 mg/dL (40-59) 04/02/22 19:39 Cholesterol/HDL Ratio 2.00 % 04/02/22 19:39 Procalcitonin 0.08 ng/mL (<0.15) 04/04/22 04:18 Urine Color Aracely (Yellow) 04/05/22 17:45 Urine Turbidity Cloudy (Clear) 04/05/22 17:45 Urine pH 5.0 (5.0-7.0) 04/05/22 17:45 Ur Specific [place] 1.021 (1.003-1.030) 04/05/22 17:45 Urine Protein 30 mg/dl mg/dL (Negative) 04/05/22 17:45 Urine Glucose (UA) Neg mg/dL (Negative) 04/05/22 17:45 Urine Ketones Tr mg/dL (Negative) 04/05/22 17:45 Urine Blood Sm (Negative) 04/05/22 17:45 Urine Nitrite Neg (Negative) 04/05/22 17:45 Urine Bilirubin Neg (Negative) 04/05/22 17:45 Urine Urobilinogen < 2.0 mg/dL (<2.0) 04/05/22 17:45 Ur Leukocyte Esterase Tr (Negative) 04/05/22 17:45 Urine WBC (Auto) 8.0 /HPF (0.0-6.0) H 04/05/22 17:45 Urine RBC (Auto) 3.0 /HPF (0.0-6.0) 04/05/22 17:45 U Epithel Cells (Auto) 2.0 /HPF (0-13.0) 04/05/22 17:45 Urine Bacteria (Auto) 1+ /HPF (Negative) 04/02/22 Unknown Hyaline Casts 1 /LPF 04/05/22 17:45 Urine Mucus 3+ /HPF 04/05/22 17:45 Nasal Screen MRSA (PCR) Negative (Negative) 04/05/22 12:37 Vancomycin Trough 6.0 ug/mL (5.0-20.0) 04/05/22 18:53 Coronavirus (PCR) Negative (Negative) 04/07/22 14:52 Microbiology: Microbiology 04/05/22 18:53 Peripheral/Venous Blood Culture - Final NO GROWTH AFTER 5 DAYS 04/05/22 18:53 Peripheral/Venous Blood Culture - Final NO GROWTH AFTER 5 DAYS Perez/IV: Voiding Method Condom Catheter Active Medications - Current Medications Current Medications: Generic Name Dose Route Start Last Admin Trade Name Freq PRN Reason Stop Dose Admin Acetaminophen 650 mg 04/02/22 23:53 04/08/22 09:33 Acetaminophen 325 Mg Tab PO 650 mg Q6H PRN Administration Pain MILD(1-3)/Fever >100.5/FAITH Acetylcysteine 200 mg 04/10/22 16:00 Acetylcysteine 20% Soln 4ml (200 Mg/Ml) IH Q8HRT SEGUNDO Albuterol 2.5 mg 04/06/22 16:00 04/11/22 07:43 Albuterol 2.5 Mg/3 Ml Nebu IH 2.5 mg Q8HRT SEGUNDO Administration Bisacodyl 10 mg 04/07/22 09:44 Bisacodyl 10 Mg Rect Supp NH QDAY PRN Constipation Dextrose 50 ml 04/06/22 17:54 Dextrose 50% In Water (25gm) 50 Ml Syringe IV Q30MIN PRN Hypoglycemia Protocol Docusate Sodium 100 mg 04/03/22 15:00 04/11/22 10:43 Docusate Sodium 100 Mg/10 Ml Oral Liqd PO 100 mg BID SEGUNDO Administration Famotidine 20 mg 04/06/22 10:00 04/11/22 10:43 Famotidine 20 Mg Tab FEEDTUBE 20 mg BID SEGUNDO Administration Fentanyl 50 mcg 04/04/22 15:56 04/11/22 11:32 Fentanyl 100 Mcg/2 Ml Inj IV 50 mcg Q2HR PRN Administration For CPOT of greater than 2 Heparin Sodium (Porcine) 5,000 unit 04/03/22 06:00 04/11/22 06:04 Heparin 5,000 Unit/1 Ml Vial SUB-Q 5,000 unit Q8HR SEGUNDO Administration NORepinephrine/NS 8 MG-250 ML 8 mg in 250 mls @ 3.75 mls/hr 04/02/22 22:00 04/10/22 09:20 Norepinephrine/Ns 8 Mg-250 Ml (Double Conc) IV 0 mcg/min TITRATE SEGUNDO 0 mls/hr Titration Protocol 2 MCG/MIN Dexmedetomidine HCl 400 mcg/ 104 mls @ 2.434 mls/hr 04/03/22 07:00 04/11/22 02:16 Sodium Chloride IV 0.8 mcg/kg/hr TITRATE SEGUNDO 9.734 mls/hr Administration Protocol 0.2 MCG/KG/HR Fentanyl Citrate 2,000 mcg in 100 mls @ 2.34 mls/hr 04/05/22 11:00 04/11/22 11:40 Fentanyl Drip Premix IV 4 mcg/kg/hr TITR SEGUNDO 9.36 mls/hr Administration Protocol 1 MCG/KG/HR Insulin Human Regular 0 units 04/06/22 18:00 04/11/22 06:04 Insulin Regular, Human 100 Units/1 Ml SUB-Q Not Given Q6H SEGUNDO Protocol Magnesium Hydroxide 30 ml 04/02/22 23:53 Magnesium Hydroxide (Mom) Oral Liqd Udc PO Q4H PRN Constipation Metoprolol Tartrate 12.5 mg 04/11/22 08:55 Metoprolol Tartrate 25 Mg Tab FEEDTUBE Q6HR SEGUNDO Nitroglycerin 0.2 mg 04/11/22 06:00 Nitroglycerin 0.2 Mg Patch 24hr TD QDAY@0600 SEGUNDO Ondansetron HCl 4 mg 04/02/22 23:53 Ondansetron 4 Mg/2 Ml Inj IV Q8H PRN Nausea And Vomiting Polyethylene Glycol 17 gm 04/08/22 10:00 04/11/22 10:43 Polyethylene Glycol 3350 17 Gm Powder PO 17 gm QDAY SEGUNDO Administration Quetiapine Fumarate 50 mg 04/09/22 16:00 04/11/22 06:14 Quetiapine 25 Mg Tab PO 50 mg 0600,1600 SEGUNDO Administration Quetiapine Fumarate 25 mg 04/09/22 22:00 04/10/22 22:48 Quetiapine 25 Mg Tab PO 25 mg QHS SEGUNDO Administration Senna 17.6 mg 04/03/22 22:00 04/11/22 10:43 Sennosides Oral Liqd 8.8 Mg/5 Ml Oral Liqd PO 17.6 mg Q12HR SEGUNDO Administration Sodium Chloride 10 ml 04/03/22 10:00 04/11/22 10:43 Sodium Chloride 0.9% 10 Ml Flush Syringe IV 10 ml BID SEGUNDO Administration Sodium Chloride 10 ml 04/02/22 23:53 Sodium Chloride 0.9% 10 Ml Flush Syringe IV PRN PRN LINE FLUSH Nutrition/Malnutrition Assess - Dietary Evaluation Nutrition/Malnutrition Findings: Nutrition Notes Start: 04/04/22 13:13 Freq: Status: Active Protocol: Document 04/06/22 12:38 COLLEEN (Rec: 04/06/22 13:23 COLLEEN [id number]) Nutrition Notes Initial or Follow up Reassessment Current Diagnosis Sepsis,Respiratory Failure, Malnutrition Other Pertinent Diagnosis HAP, HFpEF, Elevated Troponin, ALS, Hypokalemia, Hypotension , ... Current Diet TF-Vital AF 1.2 Inderjit @ 50 ml/hr (since D 04/06) Labs/Tests 04/06: K 3.0, Crea <0.2, Glu 130, Ca 8.1. Pertinent Medications 04/06: KCl 40mEq, others nutritionally unremarkable. Height 5 ft 4.8 in Weight 46.8 kg [place] Body Weight (kg) 61.27 BMI 17.2 Intake Prior to Admission Poor Weight change and time frame No body weight change reported in 2 days. Weight Status Underweight Subjective/Other Information RD consult for routine F/U on TF tolerance/ continuation, and Low BMI assessment. Pt continues TF as prescribed, well tolerated, according to RN. Pt is on Mechanical ventilation, O2 saturation @ 96%, according to Physical Assessment Histroy notes. Pt presents constipation, according to Physical Assessment Histroy notes. Pt is swallow and Chewing impaired, according to Physical Assessment Histroy notes. Pt is alert and oriented, but continues on Mechanical Ventilation, according to Progress notes. Pt's Low BMI seems to correspond to a natural body composition, and not related to a sudden loss of body weight nor chronic malnutrition, since no signs of concern were mentioned in the Physical Assessment History or the Progress notes. Percent of energy/protein needs met: Prescribed TF-Vital AF 1.2 Inderjit @ 50 ml/hr provides for energy/protein needs (1,450 Kcal/91 g) during LOS, 98% Kcal; 100% AA. Burn Absent Trauma Absent GI Symptoms Constipation Difficulty In Swallowing,Chewing Food Allergy No Skin Integrity/Comment Unspecified Area of Concern. Current % PO Other Minimum of two criteria No #1 Nutrition Diagnosis Swallowing difficulty,Biting/ Chewing (masticatory) difficulty Comments: Change Nutrition Diagnostic for precision. Etiology ALS, Mechanical Ventilation. As Evidenced by Signs and Symptoms Pt currently on TF. Is patient on ventilator? Yes Is Patient Ambulatory and/or Out of Bed No REE-([facility]-confined to bed) [phone] Calculation Used for Recommendations [facility] Additional Notes Protein: 1.2-2 g/Kg IBW; 73- 122 g/day. Fluids: 1 ml/Kcal, or as per MD. Nutrition Intervention Nutrition Support: Continue TF-Vital AF 1.2 Inderjit @ 50 ml/hr. Flush: 80 ml water Q 4 hr, or as per MD. Kcal 1,450 Protein (gm) 91 Carbohydrates (gm) 134 Fat (gm) 65 Fluid (mL) 980 Fiber (gm) 6 % RDI: 98% Kcal; 100% AA. Goal #1 Provide at least 75% of energy /protein needs through Enteral Feeding during LOS. Goal #2 Maintain body weight within +/ -3% of admission body weight during LOS. Follow-Up By: 04/13/22 Additional Comments Continue monitoring TF tolerance and BM. <NORM GRAYSON - Last Filed: 04/13/22 09:50> Assessment and Plan Assessment and plan: I saw and evaluated the patient. Discussed with the nurse practitioner and agree with their findings and plan as documented in this note. Hospitalist Physical - Constitutional Vitals: Temp Pulse Resp BP Pulse Ox 98 F 110 H 18 131/87 96 04/13/22 08:00 04/13/22 08:34 04/13/22 08:34 04/13/22 08:15 04/13/22 08:15 HEART Score - HEART Score Troponin: Troponin T 0.031 ng/mL (0.00-0.029) H 04/08/22 17:47 Results - Labs CBC & Chem 7: 04/13/22 04:30 04/13/22 04:30 Labs: Laboratory Last Values WBC 14.1 K/mm3 (4.5-11.0) H 04/13/22 04:30 RBC 2.66 M/mm3 (3.65-5.03) L 04/13/22 04:30 Hgb 8.4 gm/dl (11.8-15.2) L 04/13/22 04:30 Hct 25.5 % (35.5-45.6) L 04/13/22 04:30 MCV 96 fl (84-94) H 04/13/22 04:30 MCH 32 pg (28-32) 04/13/22 04:30 MCHC 33 % (32-34) 04/13/22 04:30 RDW 13.9 % (13.2-15.2) 04/13/22 04:30 Plt Count 245 K/mm3 (140-440) 04/13/22 04:30 Lymph % (Auto) 4.3 % (13.4-35.0) L 04/07/22 03:51 [place] % (Auto) 8.8 % (0.0-7.3) H 04/07/22 03:51 Eos % (Auto) 0.1 % (0.0-4.3) 04/07/22 03:51 Baso % (Auto) 0.2 % (0.0-1.8) 04/07/22 03:51 Lymph # (Auto) 0.6 K/mm3 (1.2-5.4) L 04/07/22 03:51 [place] # (Auto) 1.3 K/mm3 (0.0-0.8) H 04/07/22 03:51 Eos # (Auto) 0.0 K/mm3 (0.0-0.4) 04/07/22 03:51 Baso # (Auto) 0.0 K/mm3 (0.0-0.1) 04/07/22 03:51 Add Manual Diff Complete 04/02/22 19:39 Total Counted 100 04/02/22 19:39 Seg Neutrophils % 86.6 % (40.0-70.0) H 04/07/22 03:51 Seg Neuts % (Manual) 94.0 % (40.0-70.0) H 04/02/22 19:39 Band Neutrophils % 0 % 04/02/22 19:39 Lymphocytes % (Manual) 1.0 % (13.4-35.0) L 04/02/22 19:39 Reactive Lymphs % (Man) 0 % 04/02/22 19:39 Monocytes % (Manual) 5.0 % (0.0-7.3) 04/02/22 19:39 Eosinophils % (Manual) 0 % (0.0-4.3) 04/02/22 19:39 Basophils % (Manual) 0 % (0.0-1.8) 04/02/22 19:39 Metamyelocytes % 0 % 04/02/22 19:39 Myelocytes % 0 % 04/02/22 19:39 Promyelocytes % 0 % 04/02/22 19:39 Blast Cells % 0 % 04/02/22 19:39 Nucleated RBC % Not Reportable 04/02/22 19:39 Seg Neutrophils # 12.7 K/mm3 (1.8-7.7) H 04/07/22 03:51 Seg Neutrophils # Man 13.4 K/mm3 (1.8-7.7) H 04/02/22 19:39 Band Neutrophils # 0.0 K/mm3 04/02/22 19:39 Lymphocytes # (Manual) 0.1 K/mm3 (1.2-5.4) L 04/02/22 19:39 Abs React Lymphs (Man) 0.0 K/mm3 04/02/22 19:39 Monocytes # (Manual) 0.7 K/mm3 (0.0-0.8) 04/02/22 19:39 Eosinophils # (Manual) 0.0 K/mm3 (0.0-0.4) 04/02/22 19:39 Basophils # (Manual) 0.0 K/mm3 (0.0-0.1) 04/02/22 19:39 Metamyelocytes # 0.0 K/mm3 04/02/22 19:39 Myelocytes # 0.0 K/mm3 04/02/22 19:39 Promyelocytes # 0.0 K/mm3 04/02/22 19:39 Blast Cells # 0.0 K/mm3 04/02/22 19:39 WBC Morphology Not Reportable 04/02/22 19:39 Hypersegmented Neuts Not Reportable 04/02/22 19:39 Hyposegmented Neuts Not Reportable 04/02/22 19:39 Hypogranular Neuts Not Reportable 04/02/22 19:39 Smudge Cells Not Reportable 04/02/22 19:39 Toxic Granulation Not Reportable 04/02/22 19:39 Toxic Vacuolation Not Reportable 04/02/22 19:39 Dohle Bodies Not Reportable 04/02/22 19:39 Pelger-Huet Anomaly Not Reportable 04/02/22 19:39 Terry Rods Not Reportable 04/02/22 19:39 Platelet Estimate Consistent w auto 04/02/22 19:39 Clumped Platelets Not Reportable 04/02/22 19:39 Plt Clumps, EDTA Not Reportable 04/02/22 19:39 Large Platelets Not Reportable 04/02/22 19:39 Giant Platelets Not Reportable 04/02/22 19:39 Platelet Satelliting Not Reportable 04/02/22 19:39 Plt Morphology Comment Not Reportable 04/02/22 19:39 RBC Morphology Not Reportable 04/02/22 19:39 Dimorphic RBCs Not Reportable 04/02/22 19:39 Polychromasia Not Reportable 04/02/22 19:39 Hypochromasia Not Reportable 04/02/22 19:39 Poikilocytosis Not Reportable 04/02/22 19:39 Anisocytosis 1+ 04/02/22 19:39 Microcytosis Not Reportable 04/02/22 19:39 Macrocytosis Not Reportable 04/02/22 19:39 Spherocytes Not Reportable 04/02/22 19:39 Pappenheimer Bodies Not Reportable 04/02/22 19:39 Sickle Cells Not Reportable 04/02/22 19:39 Target Cells Not Reportable 04/02/22 19:39 Tear Drop Cells Not Reportable 04/02/22 19:39 Ovalocytes Not Reportable 04/02/22 19:39 Helmet Cells Not Reportable 04/02/22 19:39 [place] Bodies Not Reportable 04/02/22 19:39 [place] Rings Not Reportable 04/02/22 19:39 Cheikh Cells Not Reportable 04/02/22 19:39 Bite Cells Not Reportable 04/02/22 19:39 Crenated Cell Not Reportable 04/02/22 19:39 Elliptocytes Not Reportable 04/02/22 19:39 Acanthocytes (Spur) Not Reportable 04/02/22 19:39 Rouleaux Not Reportable 04/02/22 19:39 Hemoglobin C Crystals Not Reportable 04/02/22 19:39 Schistocytes Not Reportable 04/02/22 19:39 Malaria parasites Not Reportable 04/02/22 19:39 [place] Bodies Not Reportable 04/02/22 19:39 Hem Pathologist Commnt No 04/02/22 19:39 PT 13.6 Sec. (12.2-14.9) 04/13/22 04:30 INR 0.94 (0.87-1.13) 04/13/22 04:30 APTT 35.7 Sec. (24.2-36.6) 04/07/22 03:51 ABG pH 7.360 pH Units (7.350-7.450) 04/11/22 16:20 ABG pCO2 73.3 mm Hg 04/11/22 16:20 ABG pO2 57.8 mm Hg (80.0-90.0) L 04/11/22 16:20 ABG HCO3 40.5 mmol/L (20.0-26.0) H 04/11/22 16:20 ABG O2 Saturation 90.6 % (95.0-99.0) L 04/11/22 16:20 ABG O2 Content 13.2 (0.0-44) 04/11/22 16:20 ABG Base Excess 12.6 mmol/L (-2.0-3.0) H 04/11/22 16:20 ABG Hemoglobin 10.5 gm/dl (14.0-18.0) L 04/11/22 16:20 ABG Carboxyhemoglobin 1.4 % (0.0-5.0) 04/11/22 16:20 ABG Methemoglobin 0.4 % (0.0-1.5) 04/11/22 16:20 Oxyhemoglobin 89.0 % (95.0-99.0) L 04/11/22 16:20 FiO2 75 % 04/11/22 16:20 Sodium 139 mmol/L (137-145) 04/13/22 04:30 Potassium 4.5 mmol/L (3.6-5.0) 04/13/22 04:30 Chloride 93.9 mmol/L (98-107) L 04/13/22 04:30 Carbon Dioxide 39 mmol/L (22-30) H 04/13/22 04:30 Anion Gap 11 mmol/L 04/13/22 04:30 BUN 16 mg/dL (9-20) 04/13/22 04:30 Creatinine < 0.2 mg/dL (0.8-1.3) L 04/13/22 04:30 Estimated GFR > 60 ml/min 04/13/22 04:30 BUN/Creatinine Ratio 80 % 04/13/22 04:30 Glucose 95 mg/dL (75-100) 04/13/22 04:30 POC Glucose 107 mg/dL (70-105) H 04/12/22 23:39 Lactic Acid 1.90 mmol/L (0.7-2.0) 04/02/22 19:39 Calcium 8.5 mg/dL (8.4-10.2) 04/13/22 04:30 Phosphorus 1.90 mg/dL (2.5-4.5) L 04/13/22 04:30 Magnesium 1.90 mg/dL (1.7-2.3) 04/13/22 04:30 Total Bilirubin 0.80 mg/dL (0.1-1.2) 04/02/22 19:39 AST 15 units/L (5-40) 04/02/22 19:39 ALT 9 units/L (7-56) 04/02/22 19:39 Alkaline Phosphatase 43 units/L (35-129) 04/02/22 19:39 Total Creatine Kinase 46 units/L (55-170) L 04/08/22 17:47 CK-MB (CK-2) 2.6 ng/mL (0.0-4.0) 04/08/22 17:47 CK-MB (CK-2) Rel Index 5.6 (0-4) H 04/08/22 17:47 Troponin T 0.031 ng/mL (0.00-0.029) H 04/08/22 17:47 C-Reactive Protein 31.60 mg/dL (0.00-1.30) H 04/04/22 04:18 Total Protein 4.6 g/dL (6.3-8.2) L 04/02/22 19:39 Albumin 2.7 g/dL (3.9-5) L 04/02/22 19:39 Albumin/Globulin Ratio 1.4 % 04/02/22 19:39 Triglycerides 80 mg/dL (2-149) 04/02/22 19:39 Cholesterol 94 mg/dL (50-199) 04/02/22 19:39 LDL Cholesterol Direct 27 mg/dL (50-130) L 04/02/22 19:39 HDL Cholesterol 47 mg/dL (40-59) 04/02/22 19:39 Cholesterol/HDL Ratio 2.00 % 04/02/22 19:39 Procalcitonin 0.08 ng/mL (<0.15) 04/04/22 04:18 Urine Color Arac[place] (Yellow) 04/05/22 17:45 Urine Turbidity Cloudy (Clear) 04/05/22 17:45 Urine pH 5.0 (5.0-7.0) 04/05/22 17:45 Ur Specific [place] 1.021 (1.003-1.030) 04/05/22 17:45 Urine Protein 30 mg/dl mg/dL (Negative) 04/05/22 17:45 Urine Glucose (UA) Neg mg/dL (Negative) 04/05/22 17:45 Urine Ketones Tr mg/dL (Negative) 04/05/22 17:45 Urine Blood Sm (Negative) 04/05/22 17:45 Urine Nitrite Neg (Negative) 04/05/22 17:45 Urine Bilirubin Neg (Negative) 04/05/22 17:45 Urine Urobilinogen < 2.0 mg/dL (<2.0) 04/05/22 17:45 Ur Leukocyte Esterase Tr (Negative) 04/05/22 17:45 Urine WBC (Auto) 8.0 /HPF (0.0-6.0) H 04/05/22 17:45 Urine RBC (Auto) 3.0 /HPF (0.0-6.0) 04/05/22 17:45 U Epithel Cells (Auto) 2.0 /HPF (0-13.0) 04/05/22 17:45 Urine Bacteria (Auto) 1+ /HPF (Negative) 04/02/22 Unknown Hyaline Casts 1 /LPF 04/05/22 17:45 Urine Mucus 3+ /HPF 04/05/22 17:45 Nasal Screen MRSA (PCR) Negative (Negative) 04/05/22 12:37 Vancomycin Trough 6.0 ug/mL (5.0-20.0) 04/05/22 18:53 Coronavirus (PCR) Negative (Negative) 04/07/22 14:52 Perez/IV: Voiding Method Condom Catheter Active Medications - Current Medications Current Medications: Generic Name Dose Route Start Last Admin Trade Name Freq PRN Reason Stop Dose Admin Acetaminophen 650 mg 04/02/22 23:53 04/11/22 17:31 Acetaminophen 325 Mg Tab PO 650 mg Q6H PRN Administration Pain MILD(1-3)/Fever >100.5/FAITH Acetylcysteine 200 mg 04/10/22 16:00 04/12/22 20:19 Acetylcysteine 20% Soln 4ml (200 Mg/Ml) IH Not Given Q8HRT SEGUNDO Acetylcysteine 200 mg 04/13/22 00:00 04/13/22 08:34 Acetylcysteine 10% 100 Mg/1 Ml *For Inhalation Use* INHALATION 04/15/22 00:00 Not Given Q8HRT SEGUNDO Albuterol 2.5 mg 04/06/22 16:00 04/13/22 08:33 Albuterol 2.5 Mg/3 Ml Nebu IH 2.5 mg Q8HRT SEGUNDO Administration Bisacodyl 10 mg 04/07/22 09:44 04/12/22 10:06 Bisacodyl 10 Mg Rect Supp [place] 10 mg QDAY PRN Administration Constipation Dextrose 50 ml 04/06/22 17:54 Dextrose 50% In Water (25gm) 50 Ml Syringe IV Q30MIN PRN Hypoglycemia Protocol Docusate Sodium 100 mg 04/03/22 15:00 04/12/22 20:59 Docusate Sodium 100 Mg/10 Ml Oral Liqd PO 100 mg BID SEGUNDO Administration Famotidine 20 mg 04/06/22 10:00 04/12/22 20:59 Famotidine 20 Mg Tab FEEDTUBE 20 mg BID SEGUNDO Administration Fentanyl 50 mcg 04/04/22 15:56 04/13/22 01:45 Fentanyl 100 Mcg/2 Ml Inj IV 50 mcg Q2HR PRN Administration For CPOT of greater than 2 Heparin Sodium (Porcine) 5,000 unit 04/03/22 06:00 04/13/22 05:09 Heparin 5,000 Unit/1 Ml Vial SUB-Q Not Given Q8HR SEGUNDO NORepinephrine/NS 8 MG-250 ML 8 mg in 250 mls @ 3.75 mls/hr 04/02/22 22:00 04/10/22 09:20 Norepinephrine/Ns 8 Mg-250 Ml (Double Conc) IV 0 mcg/min TITRATE SEGUNDO 0 mls/hr Titration Protocol 2 MCG/MIN Dexmedetomidine HCl 400 mcg/ 104 mls @ 2.434 mls/hr 04/03/22 07:00 04/12/22 21:39 Sodium Chloride IV 0.7 mcg/kg/hr TITRATE SEGUNDO 8.518 mls/hr Administration Protocol 0.2 MCG/KG/HR Fentanyl Citrate 2,000 mcg in 100 mls @ 2.34 mls/hr 04/05/22 11:00 04/13/22 06:07 Fentanyl Drip Premix IV 4 mcg/kg/hr TITR SEGUNDO 9.36 mls/hr Administration Protocol 1 MCG/KG/HR Cefepime HCl 2 gm in 100 mls @ 200 mls/hr 04/12/22 13:00 04/13/22 00:19 Cefepime/Ns 2 Gm/100 Ml IV 04/15/22 12:59 200 mls/hr Q12H SEGUNDO Administration Protocol Sodium Phosphate 15 mmol/ 255 mls @ 125 mls/hr 04/13/22 09:00 04/13/22 08:55 Sodium Chloride IV 04/13/22 11:02 125 mls/hr ONCE ONE Administration Insulin Human Regular 0 units 04/06/22 18:00 04/13/22 06:14 Insulin Regular, Human 100 Units/1 Ml SUB-Q Not Given Q6H [facility] Protocol Magnesium Hydroxide 30 ml 04/02/22 23:53 Magnesium Hydroxide (Mom) Oral Liqd Udc PO Q4H PRN Constipation Metoprolol Tartrate 12.5 mg 04/11/22 08:55 04/13/22 05:09 Metoprolol Tartrate 25 Mg Tab FEEDTUBE Not Given Q6HR [facility] Nitroglycerin 0.2 mg 04/11/22 06:00 04/13/22 05:09 Nitroglycerin 0.2 Mg Patch 24hr TD Not Given QDAY@0600 [facility] Ondansetron HCl 4 mg 04/02/22 23:53 Ondansetron 4 Mg/2 Ml Inj IV Q8H PRN Nausea And Vomiting Polyethylene Glycol 17 gm 04/08/22 10:00 04/12/22 10:07 Polyethylene Glycol 3350 17 Gm Powder PO 17 gm QDAY [facility] Administration Quetiapine Fumarate 100 mg 04/12/22 14:00 04/13/22 05:10 Quetiapine 25 Mg Tab PO 100 mg 0600,1600 SEGUNDO Administration Quetiapine Fumarate 50 mg 04/12/22 14:01 04/12/22 20:59 Quetiapine 25 Mg Tab PO 50 mg QHS SEGUNDO Administration Senna 17.6 mg 04/03/22 22:00 04/12/22 20:59 Sennosides Oral Liqd 8.8 Mg/5 Ml Oral Liqd PO 17.6 mg Q12HR SEGUNDO Administration Sodium Chloride 10 ml 04/03/22 10:00 04/12/22 20:59 Sodium Chloride 0.9% 10 Ml Flush Syringe IV 10 ml BID SEGUNDO Administration Sodium Chloride 10 ml 04/02/22 23:53 Sodium Chloride 0.9% 10 Ml Flush Syringe IV PRN PRN LINE FLUSH Nutrition/Malnutrition Assess - Dietary Evaluation Nutrition/Malnutrition Findings: Nutrition Notes Start: 04/04/22 13:13 Freq: Status: Active Protocol: Document 04/06/22 12:38 COLLEEN (Rec: 04/06/22 13:23 COLLEEN [email or web address]) Nutrition Notes Initial or Follow up Reassessment Current Diagnosis Sepsis,Respiratory Failure, Malnutrition Other Pertinent Diagnosis HAP, HFpEF, Elevated Troponin, ALS, Hypokalemia, Hypotension , ... Current Diet TF-Vital AF 1.2 Inderjit @ 50 ml/hr (since D 04/06) Labs/Tests 04/06: K 3.0, Crea <0.2, Glu 130, Ca 8.1. Pertinent Medications 04/06: KCl 40mEq, others nutritionally unremarkable. Height 5 ft 4.8 in Weight 46.8 kg [place] Body Weight (kg) 61.27 BMI 17.2 Intake Prior to Admission Poor Weight change and time frame No body weight change reported in 2 days. Weight Status Underweight Subjective/Other Information RD consult for routine F/U on TF tolerance/ continuation, and Low BMI assessment. Pt continues TF as prescribed, well tolerated, according to RN. Pt is on Mechanical ventilation, O2 saturation @ 96%, according to Physical Assessment Histroy notes. Pt presents constipation, according to Physical Assessment Histroy notes. Pt is swallow and Chewing impaired, according to Physical Assessment Histroy notes. Pt is alert and oriented, but continues on Mechanical Ventilation, according to Progress notes. Pt's Low BMI seems to correspond to a natural body composition, and not related to a sudden loss of body weight nor chronic malnutrition, since no signs of concern were mentioned in the Physical Assessment History or the Progress notes. Percent of energy/protein needs met: Prescribed TF-Vital AF 1.2 Inderjit @ 50 ml/hr provides for energy/protein needs (1,450 Kcal/91 g) during LOS, 98% Kcal; 100% AA. Burn Absent Trauma Absent GI Symptoms Constipation Difficulty In Swallowing,Chewing Food Allergy No Skin Integrity/Comment Unspecified Area of Concern. Current % PO Other Minimum of two criteria No #1 Nutrition Diagnosis Swallowing difficulty,Biting/ Chewing (masticatory) difficulty Comments: Change Nutrition Diagnostic for precision. Etiology ALS, Mechanical Ventilation. As Evidenced by Signs and Symptoms Pt currently on TF. Is patient on ventilator? Yes Is Patient Ambulatory and/or Out of Bed No REE-([facility]-confined to bed) [phone] Calculation Used for Recommendations [facility] Additional Notes Protein: 1.2-2 g/Kg IBW; 73- 122 g/day. Fluids: 1 ml/Kcal, or as per MD. Nutrition Intervention Nutrition Support: Continue TF-Vital AF 1.2 Inderjit @ 50 ml/hr. Flush: 80 ml water Q 4 hr, or as per MD. Kcal 1,450 Protein (gm) 91 Carbohydrates (gm) 134 Fat (gm) 65 Fluid (mL) 980 Fiber (gm) 6 % RDI: 98% Kcal; 100% AA. Goal #1 Provide at least 75% of energy /protein needs through Enteral Feeding during LOS. Goal #2 Maintain body weight within +/ -3% of admission body weight during LOS. Follow-Up By: 04/13/22 Additional Comments Continue monitoring TF tolerance and BM.
[2022-04-11] MEDS: METOPROLOL TARTRATE 25 MG TAB FEEDTUBE SCH ×3 (13:53→23:25)
--- NOTE | 2022-04-11 14:17 | Progress Note ---
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 Protein calorie malnutrition Acute Bronchopneumonia HCAP Hypotension NSTEMI Hypernatremia Acute Metabolic Encephalopathy H/o Amyotrophic Lateral Sclerosis Nonverbal at Baseline Thrombocytopenia Protein Caloric Malnutrition Constipation (suspect transient and persistent atelectasis responsible for desaturations) - repeat CXR in am +/- bronchoscopy - increased peep to 10 for alveolar recruitment - continue bronchodilators with pulmonary hygiene per RT (CPT in place) - increased Seroquel dose (QTc 382) for better anxciety / agiotation control - prn Versed IV X 48 hours - tentative trach & PEG next 48 -72 hours - continue care as below otherwise; - Daily SAT and SBT assessment as tolerated - continue to wean supplemental oxygen for target O2 sat's > 90% acutely - VAP bundle addressed - continue lung protective strategies - wean per pulmonary driven protocols otherwise - continue accuchecks with glycemic control per SSI (While critically ill target blood glucose of 140-180 mg/dL; avoid hypoglycemia) - sedation prn for target RASS 0 to -1 - avoid nephrotoxins, renally dose all medications - continue to avoid benzodiazepine's, reduce the possibility of delirium - AB's per ID rec's - prn analgesia per CPOT score - Maintenance of sleep-wake cycle, avoid delirium - continue enteral nutritional support at goal rate as tolerated - G.I. & VTE prophylaxis - PT/OT/ROM exercises - continue mobility protocols for pressure ulcer prophylaxis - Monitor hemodynamics closely - continue other care per attending / other consultants - discharge planning ongoing concurrently COVID SPECIFIC INTERVENTIONS - test pending .... Re-evaluate in am & prn CONDITION: CRITICAL PROGNOSIS: GUARDED CODE STATUS: FULL CODE The high probability of a clinically significant, sudden or life-threatening deterioration of the [respiratory, cardiovascular & neurologic] system(s) required my full and direct attention, intervention and personal management. The aggregate critical care time was [31] minutes without overlap. Time includes spent on; [x] Data Review and interpretation [x] Patient assessment and monitoring of vital signs [x] Documentation [x] Medication orders and management Subjective Date of service: 04/11/22 Principal diagnosis: Ac and ch hypercapnic and hypoxemic Resp Failure; ALS; HCAP; Sepsis; NSTEMI Interval history: Patient is seen today for: Acute and chronic hypercapnic and hypoxemic Respiratory Failure; ALS; HCAP; Sepsis; NSTEMI; AMS; Hypernatremia; Thrombocytopenia; Protein Caloric Malnutrition; Constipation Seen and examined at bedside; 24hour events reviewed; nursing and respiratory care staff consulted; no adverse overnight events reported to me; resting peacefully in bed; remains on MVS; anxious and agitated most of day; also with intermittent desaturations; tracheal secretions mild to moderate at times; no high grade fevers Objective Vital Signs - 12hr 04/11/22 04/11/22 04/11/22 02:30 02:45 03:00 Temperature Pulse Rate 114 H 111 H 109 H Pulse Rate [ Anterior Bilateral Throughout] Pulse Rate [ From Monitor] Pulse Rate [ Throughout] Respiratory 15 14 14 Rate Respiratory Rate [Anterior Bilateral Throughout] Respiratory Rate [ Throughout] Blood Pressure 107/63 111/61 105/59 O2 Sat by Pulse 95 94 94 Oximetry 04/11/22 04/11/22 04/11/22 03:15 03:23 03:30 Temperature Pulse Rate 111 H 115 H 110 H Pulse Rate [ Anterior Bilateral Throughout] Pulse Rate [ From Monitor] Pulse Rate [ Throughout] Respiratory 15 15 Rate Respiratory Rate [Anterior Bilateral Throughout] Respiratory Rate [ Throughout] Blood Pressure 125/70 103/61 108/64 O2 Sat by Pulse 96 96 94 Oximetry 04/11/22 04/11/22 04/11/22 03:45 03:52 04:00 Temperature 98.4 F Pulse Rate 114 H 108 H Pulse Rate [ Anterior Bilateral Throughout] Pulse Rate [ 112 H From Monitor] Pulse Rate [ Throughout] Respiratory 15 15 Rate Respiratory Rate [Anterior Bilateral Throughout] Respiratory Rate [ Throughout] Blood Pressure 116/66 109/56 O2 Sat by Pulse 96 94 Oximetry 04/11/22 04/11/22 04/11/22 04:15 04:30 04:45 Temperature Pulse Rate 106 H 107 H 100 H Pulse Rate [ Anterior Bilateral Throughout] Pulse Rate [ From Monitor] Pulse Rate [ Throughout] Respiratory 15 15 14 Rate Respiratory Rate [Anterior Bilateral Throughout] Respiratory Rate [ Throughout] Blood Pressure 112/66 104/60 99/59 O2 Sat by Pulse 95 95 93 Oximetry 04/11/22 04/11/22 04/11/22 05:00 05:15 05:30 Temperature Pulse Rate 99 H 94 H 93 H Pulse Rate [ Anterior Bilateral Throughout] Pulse Rate [ From Monitor] Pulse Rate [ Throughout] Respiratory 15 14 16 Rate Respiratory Rate [Anterior Bilateral Throughout] Respiratory Rate [ Throughout] Blood Pressure 109/59 96/58 98/60 O2 Sat by Pulse 95 94 95 Oximetry 04/11/22 04/11/22 04/11/22 05:45 06:00 06:05 Temperature Pulse Rate 95 H 97 H 92 H Pulse Rate [ Anterior Bilateral Throughout] Pulse Rate [ From Monitor] Pulse Rate [ Throughout] Respiratory 14 14 Rate Respiratory Rate [Anterior Bilateral Throughout] Respiratory Rate [ Throughout] Blood Pressure 100/59 98/58 98/58 O2 Sat by Pulse 95 96 Oximetry 04/11/22 04/11/22 04/11/22 06:15 07:43 08:00 Temperature Pulse Rate 81 82 Pulse Rate [ 85 Anterior Bilateral Throughout] Pulse Rate [ From Monitor] Pulse Rate [ 82 Throughout] Respiratory 14 Rate Respiratory 16 Rate [Anterior Bilateral Throughout] Respiratory 14 Rate [ Throughout] Blood Pressure 85/45 O2 Sat by Pulse 95 95 Oximetry 04/11/22 04/11/22 12:49 13:53 Temperature Pulse Rate 117 H 127 H Pulse Rate [ Anterior Bilateral Throughout] Pulse Rate [ From Monitor] Pulse Rate [ Throughout] Respiratory Rate Respiratory Rate [Anterior Bilateral Throughout] Respiratory Rate [ Throughout] Blood Pressure 120/70 135/83 O2 Sat by Pulse 94 Oximetry Constitutional: no acute distress, alert, other (orally intubated in bed with mildly increased respiratory effort at rest) Eyes: non-icteric ENT: oropharynx moist, other (ETT 24 cm [place]) Neck: supple, no lymphadenopathy, no JVD, other (RIJ CVL) Effort: mildly labored Ascultation: Bilateral: diminished breath sounds (right lung, base), rhonchi Percussion: Bilateral: not dull Cardiovascular: regular rate and rhythm, other (S1,S2) Gastrointestinal: normoactive bowel sounds, soft, non-tender, non-distended Integumentary: normal Extremities: no cyanosis, no edema, pink and warm, pulses normal Neurologic: pupils equal and round, other (functional quadriplegia) Psychiatric: other (flat affect; sedated) CBC and BMP: 04/12/22 04:00 04/12/22 04:00 ABG, PT/INR, D-dimer: ABG ABG pH 7.364 pH Units (7.350-7.450) 04/09/22 13:00 ABG pCO2 68.5 mm Hg 04/09/22 13:00 ABG pO2 66.6 mm Hg (80.0-90.0) L 04/09/22 13:00 ABG O2 Saturation 94.4 % (95.0-99.0) L 04/09/22 13:00 PT/INR, D-dimer PT 15.2 Sec. (12.2-14.9) H 04/07/22 03:51 INR 1.08 (0.87-1.13) 04/07/22 03:51 Abnormal lab findings: Abnormal Labs 04/02/22 04/02/22 04/02/22 19:39 19:39 19:39 WBC 14.3 H RBC Hgb Hct MCV 96 H Plt Count 104 L Lymph % (Auto) Ray % (Auto) Lymph # (Auto) Ray # (Auto) Seg Neutrophils % Seg Neuts % (Manual) 94.0 H Lymphocytes % (Manual) 1.0 L Seg Neutrophils # Seg Neutrophils # Man 13.4 H Lymphocytes # (Manual) 0.1 L PT 15.9 H INR 1.14 H ABG pH ABG pO2 ABG HCO3 ABG O2 Saturation ABG Base Excess ABG Hemoglobin Oxyhemoglobin Sodium 151 H Potassium Chloride Carbon Dioxide Creatinine 0.5 L Glucose POC Glucose Calcium 8.2 L Phosphorus Magnesium 1.60 L Total Creatine Kinase CK-MB (CK-2) Rel Index Troponin T 0.048 H C-Reactive Protein Total Protein 4.6 L Albumin 2.7 L LDL Cholesterol Direct 27 L Urine WBC (Auto) 04/02/22 04/03/22 04/03/22 19:42 05:14 06:30 WBC RBC Hgb Hct MCV Plt Count Lymph % (Auto) Ray % (Auto) Lymph # (Auto) Ray # (Auto) Seg Neutrophils % Seg Neuts % (Manual) Lymphocytes % (Manual) Seg Neutrophils # Seg Neutrophils # Man Lymphocytes # (Manual) PT INR ABG pH 7.471 H 7.496 H ABG pO2 47.8 L 91.0 H ABG HCO3 30.6 H ABG O2 Saturation 94.4 L ABG Base Excess 6.2 H ABG Hemoglobin 11.0 L 12.8 L Oxyhemoglobin 93.1 L Sodium 149 H Potassium 3.4 L Chloride Carbon Dioxide Creatinine 0.4 L Glucose POC Glucose Calcium Phosphorus Magnesium Total Creatine Kinase CK-MB (CK-2) Rel Index Troponin T C-Reactive Protein Total Protein Albumin LDL Cholesterol Direct Urine WBC (Auto) 04/04/22 04/04/22 04/04/22 04:18 04:18 05:50 WBC 11.8 H RBC Hgb Hct MCV Plt Count 132 L Lymph % (Auto) Ray % (Auto) Lymph # (Auto) Ray # (Auto) Seg Neutrophils % Seg Neuts % (Manual) Lymphocytes % (Manual) Seg Neutrophils # Seg Neutrophils # Man Lymphocytes # (Manual) PT INR ABG pH 7.517 H ABG pO2 115.5 H ABG HCO3 29.9 H ABG O2 Saturation ABG Base Excess 6.7 H ABG Hemoglobin 12.3 L Oxyhemoglobin Sodium Potassium 3.5 L Chloride Carbon Dioxide 31 H Creatinine 0.3 L Glucose 153 H POC Glucose Calcium Phosphorus 1.40 L Magnesium 1.50 L Total Creatine Kinase CK-MB (CK-2) Rel Index Troponin T C-Reactive Protein 31.60 H Total Protein Albumin LDL Cholesterol Direct Urine WBC (Auto) 04/05/22 04/05/22 04/05/22 02:50 05:25 11:28 WBC RBC Hgb Hct MCV Plt Count Lymph % (Auto) Ray % (Auto) Lymph # (Auto) Ray # (Auto) Seg Neutrophils % Seg Neuts % (Manual) Lymphocytes % (Manual) Seg Neutrophils # Seg Neutrophils # Man Lymphocytes # (Manual) PT INR ABG pH 7.455 H ABG pO2 50.7 L ABG HCO3 30.5 H ABG O2 Saturation 89.4 L ABG Base Excess 5.9 H ABG Hemoglobin 11.8 L Oxyhemoglobin 88.2 L Sodium Potassium Chloride Carbon Dioxide 32 H Creatinine 0.2 L Glucose 110 H POC Glucose 124 H Calcium 7.9 L Phosphorus Magnesium Total Creatine Kinase CK-MB (CK-2) Rel Index Troponin T C-Reactive Protein Total Protein Albumin LDL Cholesterol Direct Urine WBC (Auto) 04/05/22 04/05/22 04/06/22 17:45 Unknown 04:00 WBC RBC 3.55 L Hgb 11.1 L 11.5 L Hct 33.2 L 35.1 L MCV Plt Count 113 L 114 L Lymph % (Auto) Ray % (Auto) Lymph # (Auto) Ray # (Auto) Seg Neutrophils % Seg Neuts % (Manual) Lymphocytes % (Manual) Seg Neutrophils # Seg Neutrophils # Man Lymphocytes # (Manual) PT INR ABG pH ABG pO2 ABG HCO3 ABG O2 Saturation ABG Base Excess ABG Hemoglobin Oxyhemoglobin Sodium Potassium Chloride Carbon Dioxide Creatinine Glucose POC Glucose Calcium Phosphorus Magnesium Total Creatine Kinase CK-MB (CK-2) Rel Index Troponin T C-Reactive Protein Total Protein Albumin LDL Cholesterol Direct Urine WBC (Auto) 8.0 H 04/06/22 04/06/22 04/07/22 04:00 08:30 00:04 WBC RBC Hgb Hct MCV Plt Count Lymph % (Auto) Ray % (Auto) Lymph # (Auto) Ray # (Auto) Seg Neutrophils % Seg Neuts % (Manual) Lymphocytes % (Manual) Seg Neutrophils # Seg Neutrophils # Man Lymphocytes # (Manual) PT INR ABG pH ABG pO2 60.8 L ABG HCO3 30.5 H ABG O2 Saturation 93.3 L ABG Base Excess 4.9 H ABG Hemoglobin 12.4 L Oxyhemoglobin 92.1 L Sodium Potassium 3.0 L Chloride Carbon Dioxide Creatinine < 0.2 L Glucose 130 H POC Glucose 117 H Calcium 8.1 L Phosphorus Magnesium Total Creatine Kinase CK-MB (CK-2) Rel Index Troponin T C-Reactive Protein Total Protein Albumin LDL Cholesterol Direct Urine WBC (Auto) 04/07/22 04/07/22 04/07/22 03:51 03:51 03:51 WBC 14.6 H RBC 3.57 L Hgb 11.1 L Hct 33.2 L MCV Plt Count 118 L Lymph % (Auto) 4.3 L Ray % (Auto) 8.8 H Lymph # (Auto) 0.6 L Ray # (Auto) 1.3 H Seg Neutrophils % 86.6 H Seg Neuts % (Manual) Lymphocytes % (Manual) Seg Neutrophils # 12.7 H Seg Neutrophils # Man Lymphocytes # (Manual) PT 15.2 H INR ABG pH ABG pO2 ABG HCO3 ABG O2 Saturation ABG Base Excess ABG Hemoglobin Oxyhemoglobin Sodium 133 L Potassium Chloride 96.0 L Carbon Dioxide 31 H Creatinine 0.2 L Glucose 130 H POC Glucose Calcium 8.0 L Phosphorus Magnesium Total Creatine Kinase CK-MB (CK-2) Rel Index Troponin T C-Reactive Protein Total Protein Albumin LDL Cholesterol Direct Urine WBC (Auto) 04/07/22 04/07/22 04/08/22 04:25 09:10 04:49 WBC 16.1 H RBC 3.54 L Hgb 10.9 L Hct 33.3 L MCV Plt Count Lymph % (Auto) Ray % (Auto) Lymph # (Auto) Ray # (Auto) Seg Neutrophils % Seg Neuts % (Manual) Lymphocytes % (Manual) Seg Neutrophils # Seg Neutrophils # Man Lymphocytes # (Manual) PT INR ABG pH ABG pO2 71.0 L 63.4 L ABG HCO3 31.5 H 40.0 H ABG O2 Saturation 94.9 L ABG Base Excess 5.9 H 13.6 H ABG Hemoglobin 11.3 L 9.0 L Oxyhemoglobin 93.6 L Sodium Potassium Chloride Carbon Dioxide Creatinine Glucose POC Glucose Calcium Phosphorus Magnesium Total Creatine Kinase CK-MB (CK-2) Rel Index Troponin T C-Reactive Protein Total Protein Albumin LDL Cholesterol Direct Urine WBC (Auto) 04/08/22 04/08/22 04/08/22 04:49 09:53 10:25 WBC RBC Hgb Hct MCV Plt Count Lymph % (Auto) Ray % (Auto) Lymph # (Auto) Ray # (Auto) Seg Neutrophils % Seg Neuts % (Manual) Lymphocytes % (Manual) Seg Neutrophils # Seg Neutrophils # Man Lymphocytes # (Manual) PT INR ABG pH ABG pO2 ABG HCO3 34.7 H ABG O2 Saturation ABG Base Excess 7.9 H ABG Hemoglobin 11.0 L Oxyhemoglobin Sodium 136 L Potassium Chloride 97.7 L Carbon Dioxide 33 H Creatinine 0.2 L Glucose 155 H POC Glucose Calcium Phosphorus Magnesium Total Creatine Kinase CK-MB (CK-2) Rel Index Troponin T 0.030 H C-Reactive Protein Total Protein Albumin LDL Cholesterol Direct Urine WBC (Auto) 04/08/22 04/08/22 04/08/22 11:19 17:47 18:06 WBC RBC Hgb Hct MCV Plt Count Lymph % (Auto) Ray % (Auto) Lymph # (Auto) Ray # (Auto) Seg Neutrophils % Seg Neuts % (Manual) Lymphocytes % (Manual) Seg Neutrophils # Seg Neutrophils # Man Lymphocytes # (Manual) PT INR ABG pH ABG pO2 ABG HCO3 ABG O2 Saturation ABG Base Excess ABG Hemoglobin Oxyhemoglobin Sodium Potassium Chloride Carbon Dioxide Creatinine Glucose POC Glucose 121 H Calcium Phosphorus Magnesium Total Creatine Kinase 31 L 46 L CK-MB (CK-2) Rel Index 6.4 H 5.6 H Troponin T 0.030 H 0.031 H C-Reactive Protein Total Protein Albumin LDL Cholesterol Direct Urine WBC (Auto) 04/09/22 04/09/22 04/09/22 04:35 04:35 11:24 WBC 11.5 H RBC 3.16 L Hgb 9.9 L Hct 29.4 L MCV Plt Count 131 L Lymph % (Auto) Ray % (Auto) Lymph # (Auto) Ray # (Auto) Seg Neutrophils % Seg Neuts % (Manual) Lymphocytes % (Manual) Seg Neutrophils # Seg Neutrophils # Man Lymphocytes # (Manual) PT INR ABG pH ABG pO2 ABG HCO3 ABG O2 Saturation ABG Base Excess ABG Hemoglobin Oxyhemoglobin Sodium Potassium Chloride 97.1 L Carbon Dioxide 35 H Creatinine < 0.2 L Glucose 145 H POC Glucose 147 H Calcium Phosphorus Magnesium Total Creatine Kinase CK-MB (CK-2) Rel Index Troponin T C-Reactive Protein Total Protein Albumin LDL Cholesterol Direct Urine WBC (Auto) 04/09/22 04/09/22 04/09/22 13:00 17:32 23:48 WBC RBC Hgb Hct MCV Plt Count Lymph % (Auto) Ray % (Auto) Lymph # (Auto) Ray # (Auto) Seg Neutrophils % Seg Neuts % (Manual) Lymphocytes % (Manual) Seg Neutrophils # Seg Neutrophils # Man Lymphocytes # (Manual) PT INR ABG pH ABG pO2 66.6 L ABG HCO3 38.2 H ABG O2 Saturation 94.4 L ABG Base Excess 10.7 H ABG Hemoglobin 10.7 L Oxyhemoglobin 92.8 L Sodium Potassium Chloride Carbon Dioxide Creatinine Glucose POC Glucose 143 H 114 H Calcium Phosphorus Magnesium Total Creatine Kinase CK-MB (CK-2) Rel Index Troponin T C-Reactive Protein Total Protein Albumin LDL Cholesterol Direct Urine WBC (Auto) 04/10/22 04/10/22 04/10/22 04:48 04:48 05:34 WBC RBC 2.91 L Hgb 9.1 L Hct 27.7 L MCV 95 H Plt Count Lymph % (Auto) Ray % (Auto) Lymph # (Auto) Ray # (Auto) Seg Neutrophils % Seg Neuts % (Manual) Lymphocytes % (Manual) Seg Neutrophils # Seg Neutrophils # Man Lymphocytes # (Manual) PT INR ABG pH ABG pO2 ABG HCO3 ABG O2 Saturation ABG Base Excess ABG Hemoglobin Oxyhemoglobin Sodium Potassium Chloride 95.7 L Carbon Dioxide 38 H Creatinine < 0.2 L Glucose 118 H POC Glucose 127 H Calcium Phosphorus Magnesium Total Creatine Kinase CK-MB (CK-2) Rel Index Troponin T C-Reactive Protein Total Protein Albumin LDL Cholesterol Direct Urine WBC (Auto) 04/10/22 04/11/22 04/11/22 23:10 04:15 04:15 WBC 17.2 H RBC 2.98 L Hgb 9.2 L Hct 27.9 L MCV Plt Count Lymph % (Auto) Ray % (Auto) Lymph # (Auto) Ray # (Auto) Seg Neutrophils % Seg Neuts % (Manual) Lymphocytes % (Manual) Seg Neutrophils # Seg Neutrophils # Man Lymphocytes # (Manual) PT INR ABG pH ABG pO2 ABG HCO3 ABG O2 Saturation ABG Base Excess ABG Hemoglobin Oxyhemoglobin Sodium Potassium Chloride 96.1 L Carbon Dioxide 35 H Creatinine < 0.2 L Glucose 138 H POC Glucose 106 H Calcium 8.3 L Phosphorus Magnesium Total Creatine Kinase CK-MB (CK-2) Rel Index Troponin T C-Reactive Protein Total Protein Albumin LDL Cholesterol Direct Urine WBC (Auto) 04/11/22 05:31 WBC RBC Hgb Hct MCV Plt Count Lymph % (Auto) Ray % (Auto) Lymph # (Auto) Ray # (Auto) Seg Neutrophils % Seg Neuts % (Manual) Lymphocytes % (Manual) Seg Neutrophils # Seg Neutrophils # Man Lymphocytes # (Manual) PT INR ABG pH ABG pO2 ABG HCO3 ABG O2 Saturation ABG Base Excess ABG Hemoglobin Oxyhemoglobin Sodium Potassium Chloride Carbon Dioxide Creatinine Glucose POC Glucose 129 H Calcium Phosphorus Magnesium Total Creatine Kinase CK-MB (CK-2) Rel Index Troponin T C-Reactive Protein Total Protein Albumin LDL Cholesterol Direct Urine WBC (Auto) Chest x-ray: pending Allied health notes reviewed: nursing
[2022-04-11 16:30] LABS: ABG Base Excess 12.6 mmol/L (-2.0-3.0); ABG HCO3 40.5 mmol/L (20.0-26.0); ABG Methemoglobin 0.4 % (0.0-1.5); ABG Oxygen Saturation 90.6 % (95.0-99.0); ABG PCO2 73.3 mm Hg; ABG PH 7.36 pH Units (7.350-7.450); ABG PO2 57.8 mm Hg (80.0-90.0)
[2022-04-11] MEDS: ACETAMINOPHEN 325 MG TAB PO PRN (17:31)
--- NOTE | 2022-04-11 20:18 | Progress Note ---
Assessment and Plan - Patient Problems (1) Respiratory failure Current Visit: Yes Status: Acute Plan to address problem: 1) Tentatively planning for trach/peg on 04/13/22. Subjective Date of service: 04/11/22 Patient Reports: Positive: no new complaints Objective Vital Signs - 12hr 04/11/22 04/11/22 04/11/22 08:30 08:45 09:00 Temperature Pulse Rate 122 H 125 H 122 H Pulse Rate [ Anterior Bilateral Throughout] Pulse Rate [ From Monitor] Respiratory 18 20 21 Rate Respiratory Rate [Anterior Bilateral Throughout] Blood Pressure 137/81 136/73 146/71 O2 Sat by Pulse 95 94 88 Oximetry 04/11/22 04/11/22 04/11/22 09:15 09:30 09:45 Temperature Pulse Rate 119 H 120 H 125 H Pulse Rate [ Anterior Bilateral Throughout] Pulse Rate [ From Monitor] Respiratory 21 21 23 Rate Respiratory Rate [Anterior Bilateral Throughout] Blood Pressure 131/77 139/80 128/93 O2 Sat by Pulse 89 89 92 Oximetry 04/11/22 04/11/22 04/11/22 10:00 10:15 10:30 Temperature Pulse Rate 123 H 117 H 123 H Pulse Rate [ Anterior Bilateral Throughout] Pulse Rate [ From Monitor] Respiratory 23 19 15 Rate Respiratory Rate [Anterior Bilateral Throughout] Blood Pressure 144/71 149/120 137/81 O2 Sat by Pulse 90 87 88 Oximetry 04/11/22 04/11/22 04/11/22 10:45 11:00 11:15 Temperature Pulse Rate 133 H 123 H 86 Pulse Rate [ Anterior Bilateral Throughout] Pulse Rate [ From Monitor] Respiratory 19 13 19 Rate Respiratory Rate [Anterior Bilateral Throughout] Blood Pressure 140/87 137/83 137/83 O2 Sat by Pulse 86 95 85 Oximetry 04/11/22 04/11/22 04/11/22 11:30 11:45 12:00 Temperature 99 F Pulse Rate 122 H 124 H 121 H Pulse Rate [ Anterior Bilateral Throughout] Pulse Rate [ 114 H From Monitor] Respiratory 13 17 16 Rate Respiratory Rate [Anterior Bilateral Throughout] Blood Pressure 133/80 125/70 123/69 O2 Sat by Pulse 89 92 95 Oximetry 04/11/22 04/11/22 04/11/22 12:15 12:30 12:45 Temperature Pulse Rate 114 H 117 H 120 H Pulse Rate [ Anterior Bilateral Throughout] Pulse Rate [ From Monitor] Respiratory 14 23 22 Rate Respiratory Rate [Anterior Bilateral Throughout] Blood Pressure 117/70 118/63 120/70 O2 Sat by Pulse 97 97 96 Oximetry 04/11/22 04/11/22 04/11/22 12:49 13:00 13:15 Temperature Pulse Rate 117 H 118 H 129 H Pulse Rate [ Anterior Bilateral Throughout] Pulse Rate [ From Monitor] Respiratory 20 15 Rate Respiratory Rate [Anterior Bilateral Throughout] Blood Pressure 120/70 129/79 130/84 O2 Sat by Pulse 94 94 88 Oximetry 04/11/22 04/11/22 04/11/22 13:30 13:45 13:53 Temperature Pulse Rate 130 H 133 H 127 H Pulse Rate [ Anterior Bilateral Throughout] Pulse Rate [ From Monitor] Respiratory 17 15 Rate Respiratory Rate [Anterior Bilateral Throughout] Blood Pressure 140/83 135/83 135/83 O2 Sat by Pulse 88 89 Oximetry 04/11/22 04/11/22 04/11/22 14:00 14:15 14:30 Temperature Pulse Rate 128 H 106 H 102 H Pulse Rate [ Anterior Bilateral Throughout] Pulse Rate [ From Monitor] Respiratory 16 15 15 Rate Respiratory Rate [Anterior Bilateral Throughout] Blood Pressure 136/79 96/53 94/54 O2 Sat by Pulse 89 83 L 96 Oximetry 04/11/22 04/11/22 04/11/22 14:45 15:00 15:15 Temperature Pulse Rate 102 H 98 H 102 H Pulse Rate [ Anterior Bilateral Throughout] Pulse Rate [ From Monitor] Respiratory 14 14 14 Rate Respiratory Rate [Anterior Bilateral Throughout] Blood Pressure 91/53 90/53 90/53 O2 Sat by Pulse 96 95 96 Oximetry 04/11/22 04/11/22 04/11/22 15:30 15:45 16:00 Temperature 100.4 F H Pulse Rate 97 H 92 H 88 Pulse Rate [ Anterior Bilateral Throughout] Pulse Rate [ 125 H From Monitor] Respiratory 14 15 14 Rate Respiratory Rate [Anterior Bilateral Throughout] Blood Pressure 92/54 89/54 96/54 O2 Sat by Pulse 96 95 96 Oximetry 04/11/22 04/11/22 04/11/22 16:06 16:12 16:15 Temperature Pulse Rate 91 H 120 H Pulse Rate [ 135 H Anterior Bilateral Throughout] Pulse Rate [ From Monitor] Respiratory 15 Rate Respiratory 19 Rate [Anterior Bilateral Throughout] Blood Pressure 90/54 132/75 O2 Sat by Pulse 95 92 Oximetry 04/11/22 04/11/22 04/11/22 16:30 16:45 17:00 Temperature Pulse Rate 129 H 132 H 138 H Pulse Rate [ Anterior Bilateral Throughout] Pulse Rate [ From Monitor] Respiratory 15 15 14 Rate Respiratory Rate [Anterior Bilateral Throughout] Blood Pressure 127/82 144/86 141/83 O2 Sat by Pulse 94 94 87 Oximetry 04/11/22 04/11/22 04/11/22 17:15 17:30 17:31 Temperature Pulse Rate 138 H 130 H 127 H Pulse Rate [ Anterior Bilateral Throughout] Pulse Rate [ From Monitor] Respiratory 18 16 Rate Respiratory Rate [Anterior Bilateral Throughout] Blood Pressure 125/74 93/53 93/53 O2 Sat by Pulse 88 89 Oximetry 04/11/22 04/11/22 04/11/22 17:45 18:00 18:15 Temperature Pulse Rate 126 H 131 H 124 H Pulse Rate [ Anterior Bilateral Throughout] Pulse Rate [ From Monitor] Respiratory 24 26 H 22 Rate Respiratory Rate [Anterior Bilateral Throughout] Blood Pressure 99/56 102/61 88/51 O2 Sat by Pulse 94 91 90 Oximetry 04/11/22 04/11/22 04/11/22 18:30 18:45 19:00 Temperature Pulse Rate 120 H 120 H 115 H Pulse Rate [ Anterior Bilateral Throughout] Pulse Rate [ From Monitor] Respiratory 16 22 14 Rate Respiratory Rate [Anterior Bilateral Throughout] Blood Pressure 90/51 89/50 93/52 O2 Sat by Pulse 93 94 94 Oximetry 04/11/22 04/11/22 19:15 20:00 Temperature 98.9 F Pulse Rate 117 H Pulse Rate [ Anterior Bilateral Throughout] Pulse Rate [ From Monitor] Respiratory 14 Rate Respiratory Rate [Anterior Bilateral Throughout] Blood Pressure 88/50 O2 Sat by Pulse 95 Oximetry - Labs 04/11/22 04:15 04/11/22 04:15 Diabetes panel 04/11/22 Range/Units 04:15 Sodium 138 (137-145) mmol/L Potassium 4.0 (3.6-5.0) mmol/L Chloride 96.1 L (98-107) mmol/L Carbon Dioxide 35 H (22-30) mmol/L BUN 13 (9-20) mg/dL Creatinine < 0.2 L (0.8-1.3) mg/dL Glucose 138 H (75-100) mg/dL Calcium 8.3 L (8.4-10.2) mg/dL Calcium panel 04/11/22 Range/Units 04:15 Calcium 8.3 L (8.4-10.2) mg/dL Pituitary panel 04/11/22 Range/Units 04:15 Sodium 138 (137-145) mmol/L Potassium 4.0 (3.6-5.0) mmol/L Chloride 96.1 L (98-107) mmol/L Carbon Dioxide 35 H (22-30) mmol/L BUN 13 (9-20) mg/dL Creatinine < 0.2 L (0.8-1.3) mg/dL Glucose 138 H (75-100) mg/dL Calcium 8.3 L (8.4-10.2) mg/dL Adrenal panel 04/11/22 Range/Units 04:15 Sodium 138 (137-145) mmol/L Potassium 4.0 (3.6-5.0) mmol/L Chloride 96.1 L (98-107) mmol/L Carbon Dioxide 35 H (22-30) mmol/L BUN 13 (9-20) mg/dL Creatinine < 0.2 L (0.8-1.3) mg/dL Glucose 138 H (75-100) mg/dL Calcium 8.3 L (8.4-10.2) mg/dL - Imaging Additional Studies: Worsening ABG noted.
[2022-04-11] MEDS: NITROGLYCERIN 0.1 MG PATCH 24HR TD SCH (21:45)
[2022-04-11] MEDS: ACETYLCYSTEINE 20% SOLN 4ML (200 MG/ML) IH SCH ×3 (22:33→23:21)
[2022-04-12] MEDS: ALBUTEROL 2.5 MG/3 ML NEBU IH SCH ×3 (00:11→16:30)
[2022-04-12] MEDS: fentaNYL 100 MCG/2 ML INJ IV PRN ×3 (01:44→21:53)
[2022-04-12] MEDS: ACETYLCYSTEINE 20% SOLN 4ML (200 MG/ML) IH SCH ×3 (01:44→20:19)
[2022-04-12] MEDS: fentaNYL DRIP Premix 2,000 MCG/100 ML BAG IV SCH ×3 (04:02→20:19)
[2022-04-12 04:19] LABS: Mean Corpuscular HGB Conc 32 % (32-34); Mean Corpuscular Volume 95 fl (84-94); Platelet Count 203 K/mm3 (140-440); Red Blood Count 2.96 M/mm3 (3.65-5.03); Red Cell Distribution Width 13.6 % (13.2-15.2)
[2022-04-12 04:46] LABS: Blood Urea Nitrogen 16 mg/dL (9-20); Calcium 8.5 mg/dL (8.4-10.2); Hemolysis Index 4
[2022-04-12 04:51] LABS: BUN/Creatinine Ratio 80
[2022-04-12] MEDS: INSULIN REGULAR, HUMAN 100 UNITS/1 ML SUB-Q SCH ×4 (04:59→23:53)
[2022-04-12] MEDS: HEPARIN 5,000 UNIT/1 ML VIAL SUB-Q SCH ×3 (04:59→20:59)
[2022-04-12] MEDS: METOPROLOL TARTRATE 25 MG TAB FEEDTUBE SCH ×4 (04:59→23:55)
[2022-04-12] MEDS: NITROGLYCERIN 0.2 MG PATCH 24HR TD SCH (05:00)
[2022-04-12] MEDS: QUEtiapine 25 MG TAB PO SCH ×3 (05:00→20:59)
[2022-04-12] MEDS: SENNOSIDES ORAL LIQD 8.8 MG/5 ML ORAL LIQD PO SCH ×2 (10:06→20:59)
[2022-04-12] MEDS: DOCUSATE SODIUM 100 MG/10 ML ORAL LIQD PO SCH ×2 (10:06→20:59)
[2022-04-12] MEDS: FAMOTIDINE 20 MG TAB FEEDTUBE SCH ×2 (10:06→20:59)
[2022-04-12] MEDS: POLYETHYLENE GLYCOL 3350 17 GM POWDER PO SCH (10:07)
--- NOTE | 2022-04-12 10:23 | Progress Note ---
<ALEK SMITH - Last Filed: 04/13/22 08:02> Assessment and Plan Assessment and plan: This is a 57-year-old male with known history of ALS, recently hospitalized at [facility] admitted for acute hypoxemic respiratory failure 2/2 pneumonia Hospital Course to Date: 04/03: Intubated and Sedated on versed gtt, RASS-5. CT head/brain noted with no acute intracranial abnormality. Plan to initiated precededx gtt and wean off versed for a RASS goal of 0 to -2. CT chect also reviewed, findings are most consistent with acute bronchopneumonia. Continue empiric IV Abx, vent adjustment per CCM. ID consulted. Continue to F/U on cultures. Titrate pressor for MAP above 65. Medical records requested from [facility]. 04/04: Remains stable on the vent, easily arousable on precedex gtt, not following commands. Plan for SAT/SBT today. PRN analgesia for CPOT greater than 3. Fevers improved, cultures and procal pending. Continue current IV abx, ID also consulted. Remains on low dose pressors, titrate pressors for a MAP above 65. 04/05: Long discussion with family with use of translation phone with CCM regarding goals of care. Family to have meeting amongst themselves and informed care team of decisions. Fentanyl drip added for respiratory distress. Remains on Precedex drip. Antibiotics per ID. Given 2L NS bolus with levophed gtt 04/06: Family discussion with Dr. Grayson for goals of care. CXR shows possible mucus plug, continue CPT as FiO2 is being able to be weaned. Potassium repleted. Weaning fentnyl gtt. 04/07: Ultrasound guided thoracentesis today scheduled, inadequate amount of pleural effusion on so not completed. Patient was started on Levophed overnight which was weaned off this morning however had to be started twice a day. Remains on fentanyl and Precedex. Cardiology discontinued BB and ACEi in setting of hypotension. 04/08: COVID-19 PCR negative. Routine EEG ordered by cardiology which showed ST changes, cardiology aware. They will continue conservative treatment. Repeat troponins 0.030 which are less than admit of 0.048. Dr. Grayson had a long discu ssion with with the use of berry grower today at bedside and has not made a decision regarding goals of care. Possible consult to surgery for trach/PEG early next week. Continues to require Precedex and fentanyl drip for sedation. Carvedilol/lisinopril discontinued as patient is continuously on Levophed. 04/09: No acute events reported overnight, remains on fentanyl, Precedex and Levophed drips. Dr. Grayson and Dr. Pineda updated family at bedside extensively today. Consulted surgery for trach/PEG. COVID-19 PCR negative. 04/10: Patient noted to have desaturation episodes, FiO2 increased slightly to 35%. Will add Mucomyst. Remains on fentanyl and Precedex. Off of Levophed. Surgery consulted for trach/PEG. 04/11: FiO2 increased over night likely related to hypoxia, continues on fent gtt, weaning precedex gtt as he is also on Seroquel. Will d/w CCM re scheduled or prn oxycodone 04/12: Periods of hypoxia and tachycardia this am. Symptoms improved post deep suction and tracheal lavage, Repeat CXR noted with no significant change. Continue CPT and mucomyst. Plan for possible trach/PEG tomorrow by general surgery. Assessment and Plan #Acute Hypoxemic Respiratory Failure 12/09 #Acute Bronchopneumonia - Intubated in the ED on 04/02 for hypoxemia and airway protection - Vent setting: PRVC-65%,10,14,400 - Recent ABG noted - CXR shows moderate to large layering effusion on the right, see report for full detail - CT chest also reviewed, findings are most consistent with acute bronchopneumonia. See report for full detail - CCM consulted, appreciate recommendations - Continue IV abx, CPT, and mucomyst - VAP bundle addressed - Aspiration precaution HOB above 30 - Daily SBT and SAT trials as tolerated - Daily ABG and CXR - Continue SPO2 monitoring for SPO2 goal above 92% - Plan for possible Trach/PEG tomorrow by general surgery #Sepsis #Acute Bronchopneumonia #HCAP #Leukocytosis - CXR shows moderate to large layering effusion on the right, see report for full detail - CT chest also reviewed, findings are most consistent with acute bronchopneumonia. See report for full detail - Patient was recent hospitalized for pneumonia - Patient remains afebrile - Tracheal aspirate with Pseudomonas aeruginosa, Enterobacter aerogenes - 04/02 blood culture with bacillus species, 04/05 blood culture NGTD - CRP 31.6, procalcitonin 0.08 - MRSA negative - ID on consulted, appreciate recommendations - Continue IV Abx Cefepine per ID - Continue to F/U on cultures - Daily CBC monitor #Hypotension 2/2 sepsis-resolved #Suspect ischemic coronary artery disease #h/o cardiomyopathy - Low BP probably due to hypovolemia vs sedation vs infectious process - s/p Levophed gtt - Elevated troponin possibly a type II troponin leak - Cardiology consulted, appreciated recommendations - Echocardiogram shows ejection fraction of 40 to 45%, mild global hypokinesis of left ventricle - Continue BB - Continue blood pressure monitor per protocol - Titrate pressors to maintain MAP above 65 - On heparin SubQ #Hypernatremia-resolved - NGT inserted, continue FWF - Monitor and replace electrolytes as needed - Continue to trend BMP #Acute Metabolic Encephalopathy #H/o Amyotrophic Lateral Sclerosis #Nonverbal at Baseline - Presented with AMS, per family patient is nonverbal at baseline but responsive - currently intubated and arousable on precedex and fentanyl gtt - CT head/Brain with no acute intracranial process - Titrate sedation for RASS goal of 0 to -2 - Seroquel increased per CCM - Daily SAT and SBT as tolerated - Avoid benzodiazepine to reduce the possibility of delirium - PRN analgesia for CPOT greater than 3 - Maintenance of sleep-wake cycle #Thrombocytopenia-resolved - Continue to trend plt - On heparin subQ - Monitor for s/s of any active bleeding #Protein Caloric Malnutrition - Albumin 2.7, Total protein 4.6 - NGT in place, enteral nutrition initiated - Nutrition consulted #Constipation - Noted on CXR and KUB - last BM / - Continue BR #GI/DVT Prophylaxis - PPI- Pepcid - Heparin SubQ - SCDs to bilateral lower extremities while in bed #Advance Care Planning - Disease education data, care plan, diagnoses, and prognosis were discussed patient's , Carly Lopez, and patient daughter, Kaylee Warren, who translated for #[phone]. They reported that patient was following at [facility] for his ALS and during recent hospitalization at [facility] they were told nothing else can be offered to patient at this time and patient was discharge home with home hospice and PO morphine. First hospice visit was on , however, patient became unresponsive yesterday and they brought in to the hospital. - Goal of care and code status were also addressed at that time. Family wants to wait for a couple days to see how patient respond to current treatment before making a decision. All questions and concerns were addressed at this time. Patient family acknowledged understanding and agreement with care plan. - Patient remains a FULL CODE status -04/05: Discussion at bedside with interpreting service with Dr. Valdivia and family state they would discuss next steps amongst themselves and let healthcare team know of decisions -04/06: extensive discussion with family ( and son) with Dr. Grayson regarding goals of care -04/08: Extensive discussion with with the use of berry grower line regarding goals of care; no decision made. Possible consult to surgery for trach/PEG early next week. -04/09: Discussion with and her sister with Dr. Grayson and then with Dr. Pineda-> Consulted surgery for trach/peg The high probability of a clinically significant, sudden or life threatening deterioration of the [multiple] system(s) required my full and direct attention, intervention and personal management. The aggregate critical care time was [60] minutes. This time is in addition to time spent performing reported procedures but includes the following: [x] Data Review and interpretation [x] Patient assessment and monitoring of vital signs [x] Documentation [x] Medication orders and management Disposition Plan: ICU Total Time Spent with Patient (Minutes): 60 History Interval history: Patient seen and examined at the bedside. Intubated and on sedation. Easily arousable with mild stimuli, but does not follow commands. Per RN patient has episodes of tachycardia and hypoxia, SPO2 as low as 77. Symptoms resolved with deep suction and tracheal lavage. Hospitalist Physical - Constitutional Vitals: Temp Pulse Resp BP Pulse Ox 98.7 F 97 H 14 81/48 97 04/12/22 08:00 04/12/22 09:45 04/12/22 09:45 04/12/22 09:45 04/12/22 09:45 General appearance: Present: no acute distress, cachectic, other (Intubated, easily arousable on precedex and fentanyl gtts) - EENT Eyes: Present: PERRL - Neck Neck: Present: normal ROM - Respiratory Respiratory effort: normal Respiratory: bilateral: rhonchi - Cardiovascular Rhythm: regular Heart Sounds: Present: S1 & S2 - Extremities Extremities: no ischemia, pulses intact, pulses symmetrical Peripheral Pulses: within normal limits - Abdominal General gastrointestinal: soft, non-distended, normal bowel sounds - Integumentary Integumentary: Present: warm, dry - Psychiatric Psychiatric: other (Intubated, easily arousable on precedex and fentanyl gtts) - Neurologic Neurologic: other (Intubated, easily arousable on precedex and fentanyl gtts. Does not follow commands) - Allied Health Allied health notes reviewed: nursing, case management HEART Score - HEART Score Troponin: Troponin T 0.031 ng/mL (0.00-0.029) H 04/08/22 17:47 Results - Labs CBC & Chem 7: 04/13/22 04:30 04/13/22 04:30 Labs: Laboratory Last Values WBC 17.4 K/mm3 (4.5-11.0) H 04/12/22 04:00 RBC 2.96 M/mm3 (3.65-5.03) L 04/12/22 04:00 Hgb 9.0 gm/dl (11.8-15.2) L 04/12/22 04:00 Hct 28.0 % (35.5-45.6) L 04/12/22 04:00 MCV 95 fl (84-94) H 04/12/22 04:00 MCH 30 pg (28-32) 04/12/22 04:00 MCHC 32 % (32-34) 04/12/22 04:00 RDW 13.6 % (13.2-15.2) 04/12/22 04:00 Plt Count 203 K/mm3 (140-440) 04/12/22 04:00 Lymph % (Auto) 4.3 % (13.4-35.0) L 04/07/22 03:51 [place] % (Auto) 8.8 % (0.0-7.3) H 04/07/22 03:51 Eos % (Auto) 0.1 % (0.0-4.3) 04/07/22 03:51 Baso % (Auto) 0.2 % (0.0-1.8) 04/07/22 03:51 Lymph # (Auto) 0.6 K/mm3 (1.2-5.4) L 04/07/22 03:51 [place] # (Auto) 1.3 K/mm3 (0.0-0.8) H 04/07/22 03:51 Eos # (Auto) 0.0 K/mm3 (0.0-0.4) 04/07/22 03:51 Baso # (Auto) 0.0 K/mm3 (0.0-0.1) 04/07/22 03:51 Add Manual Diff Complete 04/02/22 19:39 Total Counted 100 04/02/22 19:39 Seg Neutrophils % 86.6 % (40.0-70.0) H 04/07/22 03:51 Seg Neuts % (Manual) 94.0 % (40.0-70.0) H 04/02/22 19:39 Band Neutrophils % 0 % 04/02/22 19:39 Lymphocytes % (Manual) 1.0 % (13.4-35.0) L 04/02/22 19:39 Reactive Lymphs % (Man) 0 % 04/02/22 19:39 Monocytes % (Manual) 5.0 % (0.0-7.3) 04/02/22 19:39 Eosinophils % (Manual) 0 % (0.0-4.3) 04/02/22 19:39 Basophils % (Manual) 0 % (0.0-1.8) 04/02/22 19:39 Metamyelocytes % 0 % 04/02/22 19:39 Myelocytes % 0 % 04/02/22 19:39 Promyelocytes % 0 % 04/02/22 19:39 Blast Cells % 0 % 04/02/22 19:39 Nucleated RBC % Not Reportable 04/02/22 19:39 Seg Neutrophils # 12.7 K/mm3 (1.8-7.7) H 04/07/22 03:51 Seg Neutrophils # Man 13.4 K/mm3 (1.8-7.7) H 04/02/22 19:39 Band Neutrophils # 0.0 K/mm3 04/02/22 19:39 Lymphocytes # (Manual) 0.1 K/mm3 (1.2-5.4) L 04/02/22 19:39 Abs React Lymphs (Man) 0.0 K/mm3 04/02/22 19:39 Monocytes # (Manual) 0.7 K/mm3 (0.0-0.8) 04/02/22 19:39 Eosinophils # (Manual) 0.0 K/mm3 (0.0-0.4) 04/02/22 19:39 Basophils # (Manual) 0.0 K/mm3 (0.0-0.1) 04/02/22 19:39 Metamyelocytes # 0.0 K/mm3 04/02/22 19:39 Myelocytes # 0.0 K/mm3 04/02/22 19:39 Promyelocytes # 0.0 K/mm3 04/02/22 19:39 Blast Cells # 0.0 K/mm3 04/02/22 19:39 WBC Morphology Not Reportable 04/02/22 19:39 Hypersegmented Neuts Not Reportable 04/02/22 19:39 Hyposegmented Neuts Not Reportable 04/02/22 19:39 Hypogranular Neuts Not Reportable 04/02/22 19:39 Smudge Cells Not Reportable 04/02/22 19:39 Toxic Granulation Not Reportable 04/02/22 19:39 Toxic Vacuolation Not Reportable 04/02/22 19:39 Dohle Bodies Not Reportable 04/02/22 19:39 Pelger-Huet Anomaly Not Reportable 04/02/22 19:39 Terry Rods Not Reportable 04/02/22 19:39 Platelet Estimate Consistent w auto 04/02/22 19:39 Clumped Platelets Not Reportable 04/02/22 19:39 Plt Clumps, EDTA Not Reportable 04/02/22 19:39 Large Platelets Not Reportable 04/02/22 19:39 Giant Platelets Not Reportable 04/02/22 19:39 Platelet Satelliting Not Reportable 04/02/22 19:39 Plt Morphology Comment Not Reportable 04/02/22 19:39 RBC Morphology Not Reportable 04/02/22 19:39 Dimorphic RBCs Not Reportable 04/02/22 19:39 Polychromasia Not Reportable 04/02/22 19:39 Hypochromasia Not Reportable 04/02/22 19:39 Poikilocytosis Not Reportable 04/02/22 19:39 Anisocytosis 1+ 04/02/22 19:39 Microcytosis Not Reportable 04/02/22 19:39 Macrocytosis Not Reportable 04/02/22 19:39 Spherocytes Not Reportable 04/02/22 19:39 Pappenheimer Bodies Not Reportable 04/02/22 19:39 Sickle Cells Not Reportable 04/02/22 19:39 Target Cells Not Reportable 04/02/22 19:39 Tear Drop Cells Not Reportable 04/02/22 19:39 Ovalocytes Not Reportable 04/02/22 19:39 Helmet Cells Not Reportable 04/02/22 19:39 Patricio-Agricola Bodies Not Reportable 04/02/22 19:39 [place] Rings Not Reportable 04/02/22 19:39 Cheikh Cells Not Reportable 04/02/22 19:39 Bite Cells Not Reportable 04/02/22 19:39 Crenated Cell Not Reportable 04/02/22 19:39 Elliptocytes Not Reportable 04/02/22 19:39 Acanthocytes (Spur) Not Reportable 04/02/22 19:39 Rouleaux Not Reportable 04/02/22 19:39 Hemoglobin C Crystals Not Reportable 04/02/22 19:39 Schistocytes Not Reportable 04/02/22 19:39 Malaria parasites Not Reportable 04/02/22 19:39 [place] Bodies Not Reportable 04/02/22 19:39 Hem Pathologist Commnt No 04/02/22 19:39 PT 15.2 Sec. (12.2-14.9) H 04/07/22 03:51 INR 1.08 (0.87-1.13) 04/07/22 03:51 APTT 35.7 Sec. (24.2-36.6) 04/07/22 03:51 ABG pH 7.360 pH Units (7.350-7.450) 04/11/22 16:20 ABG pCO2 73.3 mm Hg 04/11/22 16:20 ABG pO2 57.8 mm Hg (80.0-90.0) L 04/11/22 16:20 ABG HCO3 40.5 mmol/L (20.0-26.0) H 04/11/22 16:20 ABG O2 Saturation 90.6 % (95.0-99.0) L 04/11/22 16:20 ABG O2 Content 13.2 (0.0-44) 04/11/22 16:20 ABG Base Excess 12.6 mmol/L (-2.0-3.0) H 04/11/22 16:20 ABG Hemoglobin 10.5 gm/dl (14.0-18.0) L 04/11/22 16:20 ABG Carboxyhemoglobin 1.4 % (0.0-5.0) 04/11/22 16:20 ABG Methemoglobin 0.4 % (0.0-1.5) 04/11/22 16:20 Oxyhemoglobin 89.0 % (95.0-99.0) L 04/11/22 16:20 FiO2 75 % 04/11/22 16:20 Sodium 139 mmol/L (137-145) 04/12/22 04:00 Potassium 4.6 mmol/L (3.6-5.0) 04/12/22 04:00 Chloride 97.4 mmol/L (98-107) L 04/12/22 04:00 Carbon Dioxide 37 mmol/L (22-30) H 04/12/22 04:00 Anion Gap 9 mmol/L 04/12/22 04:00 BUN 16 mg/dL (9-20) 04/12/22 04:00 Creatinine < 0.2 mg/dL (0.8-1.3) L 04/12/22 04:00 Estimated GFR > 60 ml/min 04/12/22 04:00 BUN/Creatinine Ratio 80 % 04/12/22 04:00 Glucose 127 mg/dL (75-100) H 04/12/22 04:00 POC Glucose 151 mg/dL (70-105) H 04/11/22 23:17 Lactic Acid 1.90 mmol/L (0.7-2.0) 04/02/22 19:39 Calcium 8.5 mg/dL (8.4-10.2) 04/12/22 04:00 Phosphorus 3.50 mg/dL (2.5-4.5) D 04/05/22 02:50 Magnesium 2.00 mg/dL (1.7-2.3) 04/05/22 02:50 Total Bilirubin 0.80 mg/dL (0.1-1.2) 04/02/22 19:39 AST 15 units/L (5-40) 04/02/22 19:39 ALT 9 units/L (7-56) 04/02/22 19:39 Alkaline Phosphatase 43 units/L (35-129) 04/02/22 19:39 Total Creatine Kinase 46 units/L (55-170) L 04/08/22 17:47 CK-MB (CK-2) 2.6 ng/mL (0.0-4.0) 04/08/22 17:47 CK-MB (CK-2) Rel Index 5.6 (0-4) H 04/08/22 17:47 Troponin T 0.031 ng/mL (0.00-0.029) H 04/08/22 17:47 C-Reactive Protein 31.60 mg/dL (0.00-1.30) H 04/04/22 04:18 Total Protein 4.6 g/dL (6.3-8.2) L 04/02/22 19:39 Albumin 2.7 g/dL (3.9-5) L 04/02/22 19:39 Albumin/Globulin Ratio 1.4 % 04/02/22 19:39 Triglycerides 80 mg/dL (2-149) 04/02/22 19:39 Cholesterol 94 mg/dL (50-199) 04/02/22 19:39 LDL Cholesterol Direct 27 mg/dL (50-130) L 04/02/22 19:39 HDL Cholesterol 47 mg/dL (40-59) 04/02/22 19:39 Cholesterol/HDL Ratio 2.00 % 04/02/22 19:39 Procalcitonin 0.08 ng/mL (<0.15) 04/04/22 04:18 Urine Color Aracely (Yellow) 04/05/22 17:45 Urine Turbidity Cloudy (Clear) 04/05/22 17:45 Urine pH 5.0 (5.0-7.0) 04/05/22 17:45 Ur Specific [place] 1.021 (1.003-1.030) 04/05/22 17:45 Urine Protein 30 mg/dl mg/dL (Negative) 04/05/22 17:45 Urine Glucose (UA) Neg mg/dL (Negative) 04/05/22 17:45 Urine Ketones Tr mg/dL (Negative) 04/05/22 17:45 Urine Blood Sm (Negative) 04/05/22 17:45 Urine Nitrite Neg (Negative) 04/05/22 17:45 Urine Bilirubin Neg (Negative) 04/05/22 17:45 Urine Urobilinogen < 2.0 mg/dL (<2.0) 04/05/22 17:45 Ur Leukocyte Esterase Tr (Negative) 04/05/22 17:45 Urine WBC (Auto) 8.0 /HPF (0.0-6.0) H 04/05/22 17:45 Urine RBC (Auto) 3.0 /HPF (0.0-6.0) 04/05/22 17:45 U Epithel Cells (Auto) 2.0 /HPF (0-13.0) 04/05/22 17:45 Urine Bacteria (Auto) 1+ /HPF (Negative) 04/02/22 Unknown Hyaline Casts 1 /LPF 04/05/22 17:45 Urine Mucus 3+ /HPF 04/05/22 17:45 Nasal Screen MRSA (PCR) Negative (Negative) 04/05/22 12:37 Vancomycin Trough 6.0 ug/mL (5.0-20.0) 04/05/22 18:53 Coronavirus (PCR) Negative (Negative) 04/07/22 14:52 Perez/IV: Voiding Method Condom Catheter Active Medications - Current Medications Current Medications: Generic Name Dose Route Start Last Admin Trade Name Freq PRN Reason Stop Dose Admin Acetaminophen 650 mg 04/02/22 23:53 04/11/22 17:31 Acetaminophen 325 Mg Tab PO 650 mg Q6H PRN Administration Pain MILD(1-3)/Fever >100.5/FAITH Acetylcysteine 200 mg 04/10/22 16:00 04/12/22 01:44 Acetylcysteine 20% Soln 4ml (200 Mg/Ml) IH Not Given Q8HRT SEGUNDO Albuterol 2.5 mg 04/06/22 16:00 04/12/22 08:09 Albuterol 2.5 Mg/3 Ml Nebu IH 2.5 mg Q8HRT SEGUNDO Administration Bisacodyl 10 mg 04/07/22 09:44 04/12/22 10:06 Bisacodyl 10 Mg Rect Supp LA 10 mg QDAY PRN Administration Constipation Dextrose 50 ml 04/06/22 17:54 Dextrose 50% In Water (25gm) 50 Ml Syringe IV Q30MIN PRN Hypoglycemia Protocol Docusate Sodium 100 mg 04/03/22 15:00 04/12/22 10:06 Docusate Sodium 100 Mg/10 Ml Oral Liqd PO 100 mg BID SEGUNDO Administration Famotidine 20 mg 04/06/22 10:00 04/12/22 10:06 Famotidine 20 Mg Tab FEEDTUBE 20 mg BID SEGUNDO Administration Fentanyl 50 mcg 04/04/22 15:56 04/12/22 01:44 Fentanyl 100 Mcg/2 Ml Inj IV 50 mcg Q2HR PRN Administration For CPOT of greater than 2 Heparin Sodium (Porcine) 5,000 unit 04/03/22 06:00 04/12/22 04:59 Heparin 5,000 Unit/1 Ml Vial SUB-Q 5,000 unit Q8HR SEGUNDO Administration NORepinephrine/NS 8 MG-250 ML 8 mg in 250 mls @ 3.75 mls/hr 04/02/22 22:00 04/10/22 09:20 Norepinephrine/Ns 8 Mg-250 Ml (Double Conc) IV 0 mcg/min TITRATE SEGUNDO 0 mls/hr Titration Protocol 2 MCG/MIN Dexmedetomidine HCl 400 mcg/ 104 mls @ 2.434 mls/hr 04/03/22 07:00 04/12/22 01:50 Sodium Chloride IV 1.4 mcg/kg/hr TITRATE SEGUNDO 17.035 mls/hr Titration Protocol 0.2 MCG/KG/HR Fentanyl Citrate 2,000 mcg in 100 mls @ 2.34 mls/hr 04/05/22 11:00 04/12/22 04:02 Fentanyl Drip Premix IV 4 mcg/kg/hr TITR SEGUNDO 9.36 mls/hr Administration Protocol 1 MCG/KG/HR Insulin Human Regular 0 units 04/06/22 18:00 04/12/22 04:59 Insulin Regular, Human 100 Units/1 Ml SUB-Q Not Given Q6H [facility] Protocol Magnesium Hydroxide 30 ml 04/02/22 23:53 Magnesium Hydroxide (Mom) Oral Liqd Udc PO Q4H PRN Constipation Metoprolol Tartrate 12.5 mg 04/11/22 08:55 04/12/22 04:59 Metoprolol Tartrate 25 Mg Tab FEEDTUBE Not Given Q6HR [facility] Nitroglycerin 0.2 mg 04/11/22 06:00 04/12/22 05:00 Nitroglycerin 0.2 Mg Patch 24hr TD Not Given QDAY@0600 [facility] Ondansetron HCl 4 mg 04/02/22 23:53 Ondansetron 4 Mg/2 Ml Inj IV Q8H PRN Nausea And Vomiting Polyethylene Glycol 17 gm 04/08/22 10:00 04/12/22 10:07 Polyethylene Glycol 3350 17 Gm Powder PO 17 gm QDAY SEGUNDO Administration Quetiapine Fumarate 50 mg 04/09/22 16:00 04/12/22 05:00 Quetiapine 25 Mg Tab PO 50 mg 0600,1600 SEGUNDO Administration Quetiapine Fumarate 25 mg 04/09/22 22:00 04/11/22 21:44 Quetiapine 25 Mg Tab PO 25 mg QHS SEGUNDO Administration Senna 17.6 mg 04/03/22 22:00 04/12/22 10:06 Sennosides Oral Liqd 8.8 Mg/5 Ml Oral Liqd PO 17.6 mg Q12HR SEGUNDO Administration Sodium Chloride 10 ml 04/03/22 10:00 04/12/22 10:07 Sodium Chloride 0.9% 10 Ml Flush Syringe IV 10 ml BID SEGUNDO Administration Sodium Chloride 10 ml 04/02/22 23:53 Sodium Chloride 0.9% 10 Ml Flush Syringe IV PRN PRN LINE FLUSH Nutrition/Malnutrition Assess - Dietary Evaluation Nutrition/Malnutrition Findings: Nutrition Notes Start: 04/04/22 13:13 Freq: Status: Active Protocol: Document 04/06/22 12:38 COLLEEN (Rec: 04/06/22 13:23 COLLEEN [email or web address]) Nutrition Notes Initial or Follow up Reassessment Current Diagnosis Sepsis,Respiratory Failure, Malnutrition Other Pertinent Diagnosis HAP, HFpEF, Elevated Troponin, ALS, Hypokalemia, Hypotension , ... Current Diet TF-Vital AF 1.2 Inderjit @ 50 ml/hr (since D 04/06) Labs/Tests 04/06: K 3.0, Crea <0.2, Glu 130, Ca 8.1. Pertinent Medications 04/06: KCl 40mEq, others nutritionally unremarkable. Height 5 ft 4.8 in Weight 46.8 kg [place] Body Weight (kg) 61.27 BMI 17.2 Intake Prior to Admission Poor Weight change and time frame No body weight change reported in 2 days. Weight Status Underweight Subjective/Other Information RD consult for routine F/U on TF tolerance/ continuation, and Low BMI assessment. Pt continues TF as prescribed, well tolerated, according to RN. Pt is on Mechanical ventilation, O2 saturation @ 96%, according to Physical Assessment Histroy notes. Pt presents constipation, according to Physical Assessment Histroy notes. Pt is swallow and Chewing impaired, according to Physical Assessment Histroy notes. Pt is alert and oriented, but continues on Mechanical Ventilation, according to Progress notes. Pt's Low BMI seems to correspond to a natural body composition, and not related to a sudden loss of body weight nor chronic malnutrition, since no signs of concern were mentioned in the Physical Assessment History or the Progress notes. Percent of energy/protein needs met: Prescribed TF-Vital AF 1.2 Inderjit @ 50 ml/hr provides for energy/protein needs (1,450 Kcal/91 g) during LOS, 98% Kcal; 100% AA. Burn Absent Trauma Absent GI Symptoms Constipation Difficulty In Swallowing,Chewing Food Allergy No Skin Integrity/Comment Unspecified Area of Concern. Current % PO Other Minimum of two criteria No #1 Nutrition Diagnosis Swallowing difficulty,Biting/ Chewing (masticatory) difficulty Comments: Change Nutrition Diagnostic for precision. Etiology ALS, Mechanical Ventilation. As Evidenced by Signs and Symptoms Pt currently on TF. Is patient on ventilator? Yes Is Patient Ambulatory and/or Out of Bed No REE-([facility]-confined to bed) [phone] Calculation Used for Recommendations [facility] Additional Notes Protein: 1.2-2 g/Kg IBW; 73- 122 g/day. Fluids: 1 ml/Kcal, or as per MD. Nutrition Intervention Nutrition Support: Continue TF-Vital AF 1.2 Inderjit @ 50 ml/hr. Flush: 80 ml water Q 4 hr, or as per MD. Kcal 1,450 Protein (gm) 91 Carbohydrates (gm) 134 Fat (gm) 65 Fluid (mL) 980 Fiber (gm) 6 % RDI: 98% Kcal; 100% AA. Goal #1 Provide at least 75% of energy /protein needs through Enteral Feeding during LOS. Goal #2 Maintain body weight within +/ -3% of admission body weight during LOS. Follow-Up By: 04/13/22 Additional Comments Continue monitoring TF tolerance and BM. <NORM GRAYSON - Last Filed: 04/13/22 09:46> Assessment and Plan Assessment and plan: I saw and evaluated the patient. Discussed with the nurse practitioner and agree with their findings and plan as documented in this note. Hospitalist Physical - Constitutional Vitals: Temp Pulse Resp BP Pulse Ox 98 F 110 H 18 131/87 96 04/13/22 08:00 04/13/22 08:34 04/13/22 08:34 04/13/22 08:15 04/13/22 08:15 HEART Score - HEART Score Troponin: Troponin T 0.031 ng/mL (0.00-0.029) H 04/08/22 17:47 Results - Labs CBC & Chem 7: 04/13/22 04:30 04/13/22 04:30 Labs: Laboratory Last Values WBC 14.1 K/mm3 (4.5-11.0) H 04/13/22 04:30 RBC 2.66 M/mm3 (3.65-5.03) L 04/13/22 04:30 Hgb 8.4 gm/dl (11.8-15.2) L 04/13/22 04:30 Hct 25.5 % (35.5-45.6) L 04/13/22 04:30 MCV 96 fl (84-94) H 04/13/22 04:30 MCH 32 pg (28-32) 04/13/22 04:30 MCHC 33 % (32-34) 04/13/22 04:30 RDW 13.9 % (13.2-15.2) 04/13/22 04:30 Plt Count 245 K/mm3 (140-440) 04/13/22 04:30 Lymph % (Auto) 4.3 % (13.4-35.0) L 04/07/22 03:51 [place] % (Auto) 8.8 % (0.0-7.3) H 04/07/22 03:51 Eos % (Auto) 0.1 % (0.0-4.3) 04/07/22 03:51 Baso % (Auto) 0.2 % (0.0-1.8) 04/07/22 03:51 Lymph # (Auto) 0.6 K/mm3 (1.2-5.4) L 04/07/22 03:51 [place] # (Auto) 1.3 K/mm3 (0.0-0.8) H 04/07/22 03:51 Eos # (Auto) 0.0 K/mm3 (0.0-0.4) 04/07/22 03:51 Baso # (Auto) 0.0 K/mm3 (0.0-0.1) 04/07/22 03:51 Add Manual Diff Complete 04/02/22 19:39 Total Counted 100 04/02/22 19:39 Seg Neutrophils % 86.6 % (40.0-70.0) H 04/07/22 03:51 Seg Neuts % (Manual) 94.0 % (40.0-70.0) H 04/02/22 19:39 Band Neutrophils % 0 % 04/02/22 19:39 Lymphocytes % (Manual) 1.0 % (13.4-35.0) L 04/02/22 19:39 Reactive Lymphs % (Man) 0 % 04/02/22 19:39 Monocytes % (Manual) 5.0 % (0.0-7.3) 04/02/22 19:39 Eosinophils % (Manual) 0 % (0.0-4.3) 04/02/22 19:39 Basophils % (Manual) 0 % (0.0-1.8) 04/02/22 19:39 Metamyelocytes % 0 % 04/02/22 19:39 Myelocytes % 0 % 04/02/22 19:39 Promyelocytes % 0 % 04/02/22 19:39 Blast Cells % 0 % 04/02/22 19:39 Nucleated RBC % Not Reportable 04/02/22 19:39 Seg Neutrophils # 12.7 K/mm3 (1.8-7.7) H 04/07/22 03:51 Seg Neutrophils # Man 13.4 K/mm3 (1.8-7.7) H 04/02/22 19:39 Band Neutrophils # 0.0 K/mm3 04/02/22 19:39 Lymphocytes # (Manual) 0.1 K/mm3 (1.2-5.4) L 04/02/22 19:39 Abs React Lymphs (Man) 0.0 K/mm3 04/02/22 19:39 Monocytes # (Manual) 0.7 K/mm3 (0.0-0.8) 04/02/22 19:39 Eosinophils # (Manual) 0.0 K/mm3 (0.0-0.4) 04/02/22 19:39 Basophils # (Manual) 0.0 K/mm3 (0.0-0.1) 04/02/22 19:39 Metamyelocytes # 0.0 K/mm3 04/02/22 19:39 Myelocytes # 0.0 K/mm3 04/02/22 19:39 Promyelocytes # 0.0 K/mm3 04/02/22 19:39 Blast Cells # 0.0 K/mm3 04/02/22 19:39 WBC Morphology Not Reportable 04/02/22 19:39 Hypersegmented Neuts Not Reportable 04/02/22 19:39 Hyposegmented Neuts Not Reportable 04/02/22 19:39 Hypogranular Neuts Not Reportable 04/02/22 19:39 Smudge Cells Not Reportable 04/02/22 19:39 Toxic Granulation Not Reportable 04/02/22 19:39 Toxic Vacuolation Not Reportable 04/02/22 19:39 Dohle Bodies Not Reportable 04/02/22 19:39 Pelger-Huet Anomaly Not Reportable 04/02/22 19:39 Terry Rods Not Reportable 04/02/22 19:39 Platelet Estimate Consistent w auto 04/02/22 19:39 Clumped Platelets Not Reportable 04/02/22 19:39 Plt Clumps, EDTA Not Reportable 04/02/22 19:39 Large Platelets Not Reportable 04/02/22 19:39 Giant Platelets Not Reportable 04/02/22 19:39 Platelet Satelliting Not Reportable 04/02/22 19:39 Plt Morphology Comment Not Reportable 04/02/22 19:39 RBC Morphology Not Reportable 04/02/22 19:39 Dimorphic RBCs Not Reportable 04/02/22 19:39 Polychromasia Not Reportable 04/02/22 19:39 Hypochromasia Not Reportable 04/02/22 19:39 Poikilocytosis Not Reportable 04/02/22 19:39 Anisocytosis 1+ 04/02/22 19:39 Microcytosis Not Reportable 04/02/22 19:39 Macrocytosis Not Reportable 04/02/22 19:39 Spherocytes Not Reportable 04/02/22 19:39 Pappenheimer Bodies Not Reportable 04/02/22 19:39 Sickle Cells Not Reportable 04/02/22 19:39 Target Cells Not Reportable 04/02/22 19:39 Tear Drop Cells Not Reportable 04/02/22 19:39 Ovalocytes Not Reportable 04/02/22 19:39 Helmet Cells Not Reportable 04/02/22 19:39 Patricio-Agricola Bodies Not Reportable 04/02/22 19:39 [place] Rings Not Reportable 04/02/22 19:39 Cheikh Cells Not Reportable 04/02/22 19:39 Bite Cells Not Reportable 04/02/22 19:39 Crenated Cell Not Reportable 04/02/22 19:39 Elliptocytes Not Reportable 04/02/22 19:39 Acanthocytes (Spur) Not Reportable 04/02/22 19:39 Rouleaux Not Reportable 04/02/22 19:39 Hemoglobin C Crystals Not Reportable 04/02/22 19:39 Schistocytes Not Reportable 04/02/22 19:39 Malaria parasites Not Reportable 04/02/22 19:39 [place] Bodies Not Reportable 04/02/22 19:39 Hem Pathologist Commnt No 04/02/22 19:39 PT 13.6 Sec. (12.2-14.9) 04/13/22 04:30 INR 0.94 (0.87-1.13) 04/13/22 04:30 APTT 35.7 Sec. (24.2-36.6) 04/07/22 03:51 ABG pH 7.360 pH Units (7.350-7.450) 04/11/22 16:20 ABG pCO2 73.3 mm Hg 04/11/22 16:20 ABG pO2 57.8 mm Hg (80.0-90.0) L 04/11/22 16:20 ABG HCO3 40.5 mmol/L (20.0-26.0) H 04/11/22 16:20 ABG O2 Saturation 90.6 % (95.0-99.0) L 04/11/22 16:20 ABG O2 Content 13.2 (0.0-44) 04/11/22 16:20 ABG Base Excess 12.6 mmol/L (-2.0-3.0) H 04/11/22 16:20 ABG Hemoglobin 10.5 gm/dl (14.0-18.0) L 04/11/22 16:20 ABG Carboxyhemoglobin 1.4 % (0.0-5.0) 04/11/22 16:20 ABG Methemoglobin 0.4 % (0.0-1.5) 04/11/22 16:20 Oxyhemoglobin 89.0 % (95.0-99.0) L 04/11/22 16:20 FiO2 75 % 04/11/22 16:20 Sodium 139 mmol/L (137-145) 04/13/22 04:30 Potassium 4.5 mmol/L (3.6-5.0) 04/13/22 04:30 Chloride 93.9 mmol/L (98-107) L 04/13/22 04:30 Carbon Dioxide 39 mmol/L (22-30) H 04/13/22 04:30 Anion Gap 11 mmol/L 04/13/22 04:30 BUN 16 mg/dL (9-20) 04/13/22 04:30 Creatinine < 0.2 mg/dL (0.8-1.3) L 04/13/22 04:30 Estimated GFR > 60 ml/min 04/13/22 04:30 BUN/Creatinine Ratio 80 % 04/13/22 04:30 Glucose 95 mg/dL (75-100) 04/13/22 04:30 POC Glucose 107 mg/dL (70-105) H 04/12/22 23:39 Lactic Acid 1.90 mmol/L (0.7-2.0) 04/02/22 19:39 Calcium 8.5 mg/dL (8.4-10.2) 04/13/22 04:30 Phosphorus 1.90 mg/dL (2.5-4.5) L 04/13/22 04:30 Magnesium 1.90 mg/dL (1.7-2.3) 04/13/22 04:30 Total Bilirubin 0.80 mg/dL (0.1-1.2) 04/02/22 19:39 AST 15 units/L (5-40) 04/02/22 19:39 ALT 9 units/L (7-56) 04/02/22 19:39 Alkaline Phosphatase 43 units/L (35-129) 04/02/22 19:39 Total Creatine Kinase 46 units/L (55-170) L 04/08/22 17:47 CK-MB (CK-2) 2.6 ng/mL (0.0-4.0) 04/08/22 17:47 CK-MB (CK-2) Rel Index 5.6 (0-4) H 04/08/22 17:47 Troponin T 0.031 ng/mL (0.00-0.029) H 04/08/22 17:47 C-Reactive Protein 31.60 mg/dL (0.00-1.30) H 04/04/22 04:18 Total Protein 4.6 g/dL (6.3-8.2) L 04/02/22 19:39 Albumin 2.7 g/dL (3.9-5) L 04/02/22 19:39 Albumin/Globulin Ratio 1.4 % 04/02/22 19:39 Triglycerides 80 mg/dL (2-149) 04/02/22 19:39 Cholesterol 94 mg/dL (50-199) 04/02/22 19:39 LDL Cholesterol Direct 27 mg/dL (50-130) L 04/02/22 19:39 HDL Cholesterol 47 mg/dL (40-59) 04/02/22 19:39 Cholesterol/HDL Ratio 2.00 % 04/02/22 19:39 Procalcitonin 0.08 ng/mL (<0.15) 04/04/22 04:18 Urine Color Aracely (Yellow) 04/05/22 17:45 Urine Turbidity Cloudy (Clear) 04/05/22 17:45 Urine pH 5.0 (5.0-7.0) 04/05/22 17:45 Ur Specific [place] 1.021 (1.003-1.030) 04/05/22 17:45 Urine Protein 30 mg/dl mg/dL (Negative) 04/05/22 17:45 Urine Glucose (UA) Neg mg/dL (Negative) 04/05/22 17:45 Urine Ketones Tr mg/dL (Negative) 04/05/22 17:45 Urine Blood Sm (Negative) 04/05/22 17:45 Urine Nitrite Neg (Negative) 04/05/22 17:45 Urine Bilirubin Neg (Negative) 04/05/22 17:45 Urine Urobilinogen < 2.0 mg/dL (<2.0) 04/05/22 17:45 Ur Leukocyte Esterase Tr (Negative) 04/05/22 17:45 Urine WBC (Auto) 8.0 /HPF (0.0-6.0) H 04/05/22 17:45 Urine RBC (Auto) 3.0 /HPF (0.0-6.0) 04/05/22 17:45 U Epithel Cells (Auto) 2.0 /HPF (0-13.0) 04/05/22 17:45 Urine Bacteria (Auto) 1+ /HPF (Negative) 04/02/22 Unknown Hyaline Casts 1 /LPF 04/05/22 17:45 Urine Mucus 3+ /HPF 04/05/22 17:45 Nasal Screen MRSA (PCR) Negative (Negative) 04/05/22 12:37 Vancomycin Trough 6.0 ug/mL (5.0-20.0) 04/05/22 18:53 Coronavirus (PCR) Negative (Negative) 04/07/22 14:52 Perez/IV: Voiding Method Condom Catheter Active Medications - Current Medications Current Medications: Generic Name Dose Route Start Last Admin Trade Name Freq PRN Reason Stop Dose Admin Acetaminophen 650 mg 04/02/22 23:53 04/11/22 17:31 Acetaminophen 325 Mg Tab PO 650 mg Q6H PRN Administration Pain MILD(1-3)/Fever >100.5/FAITH Acetylcysteine 200 mg 04/10/22 16:00 04/12/22 20:19 Acetylcysteine 20% Soln 4ml (200 Mg/Ml) IH Not Given Q8HRT SEGUNDO Acetylcysteine 200 mg 04/13/22 00:00 04/13/22 08:34 Acetylcysteine 10% 100 Mg/1 Ml *For Inhalation Use* INHALATION 04/15/22 00: 00 Not Given Q8HRT SEGUNDO Albuterol 2.5 mg 04/06/22 16:00 04/13/22 08:33 Albuterol 2.5 Mg/3 Ml Nebu IH 2.5 mg Q8HRT SEGUNDO Administration Bisacodyl 10 mg 04/07/22 09:44 04/12/22 10:06 Bisacodyl 10 Mg Rect Supp LA 10 mg QDAY PRN Administration Constipation Dextrose 50 ml 04/06/22 17:54 Dextrose 50% In Water (25gm) 50 Ml Syringe IV Q30MIN PRN Hypoglycemia Protocol Docusate Sodium 100 mg 04/03/22 15:00 04/12/22 20:59 Docusate Sodium 100 Mg/10 Ml Oral Liqd PO 100 mg BID SEGUNDO Administration Famotidine 20 mg 04/06/22 10:00 04/12/22 20:59 Famotidine 20 Mg Tab FEEDTUBE 20 mg BID SEGUNDO Administration Fentanyl 50 mcg 04/04/22 15:56 04/13/22 01:45 Fentanyl 100 Mcg/2 Ml Inj IV 50 mcg Q2HR PRN Administration For CPOT of greater than 2 Heparin Sodium (Porcine) 5,000 unit 04/03/22 06:00 04/13/22 05:09 Heparin 5,000 Unit/1 Ml Vial SUB-Q Not Given Q8HR SEGUNDO NORepinephrine/NS 8 MG-250 ML 8 mg in 250 mls @ 3.75 mls/hr 04/02/22 22:00 04/10/22 09:20 Norepinephrine/Ns 8 Mg-250 Ml (Double Conc) IV 0 mcg/min TITRATE SEGUNDO 0 mls/hr Titration Protocol 2 MCG/MIN Dexmedetomidine HCl 400 mcg/ 104 mls @ 2.434 mls/hr 04/03/22 07:00 04/12/22 21:39 Sodium Chloride IV 0.7 mcg/kg/hr TITRATE SEGUNDO 8.518 mls/hr Administration Protocol 0.2 MCG/KG/HR Fentanyl Citrate 2,000 mcg in 100 mls @ 2.34 mls/hr 04/05/22 11:00 04/13/22 0 6:07 Fentanyl Drip Premix IV 4 mcg/kg/hr TITR SEGUNDO 9.36 mls/hr Administration Protocol 1 MCG/KG/HR Cefepime HCl 2 gm in 100 mls @ 200 mls/hr 04/12/22 13:00 04/13/22 00:19 Cefepime/Ns 2 Gm/100 Ml IV 04/15/22 12:59 200 mls/hr Q12H SEGUNDO Administration Protocol Sodium Phosphate 15 mmol/ 255 mls @ 125 mls/hr 04/13/22 09:00 04/13/22 08:55 Sodium Chloride IV 04/13/22 11:02 125 mls/hr ONCE ONE Administration Insulin Human Regular 0 units 04/06/22 18:00 04/13/22 06:14 Insulin Regular, Human 100 Units/1 Ml SUB-Q Not Given Q6H SEGUNDO Protocol Magnesium Hydroxide 30 ml 04/02/22 23:53 Magnesium Hydroxide (Mom) Oral Liqd Udc PO Q4H PRN Constipation Metoprolol Tartrate 12.5 mg 04/11/22 08:55 04/13/22 05:09 Metoprolol Tartrate 25 Mg Tab FEEDTUBE Not Given Q6HR SEGUNDO Nitroglycerin 0.2 mg 04/11/22 06:00 04/13/22 05:09 Nitroglycerin 0.2 Mg Patch 24hr TD Not Given QDAY@0600 SEGUNDO Ondansetron HCl 4 mg 04/02/22 23:53 Ondansetron 4 Mg/2 Ml Inj IV Q8H PRN Nausea And Vomiting Polyethylene Glycol 17 gm 04/08/22 10:00 04/12/22 10:07 Polyethylene Glycol 3350 17 Gm Powder PO 17 gm QDAY SEGUNDO Administration Quetiapine Fumarate 100 mg 04/12/22 14:00 04/13/22 05:10 Quetiapine 25 Mg Tab PO 100 mg 0600,1600 SEGUNDO Administration Quetiapine Fumarate 50 mg 04/12/22 14:01 04/12/22 20:59 Quetiapine 25 Mg Tab PO 50 mg QHS SEGUNDO Administration Senna 17.6 mg 04/03/22 22:00 04/12/22 20:59 Sennosides Oral Liqd 8.8 Mg/5 Ml Oral Liqd PO 17.6 mg Q12HR SEGUNDO Administration Sodium Chloride 10 ml 04/03/22 10:00 04/12/22 20:59 Sodium Chloride 0.9% 10 Ml Flush Syringe IV 10 ml BID SEGUNDO Administration Sodium Chloride 10 ml 04/02/22 23:53 Sodium Chloride 0.9% 10 Ml Flush Syringe IV PRN PRN LINE FLUSH Nutrition/Malnutrition Assess - Dietary Evaluation Nutrition/Malnutrition Findings: Nutrition Notes Start: 04/04/22 13:13 Freq: Status: Active Protocol: Document 04/06/22 12:38 COLLEEN (Rec: 04/06/22 13:23 COLLEEN [id number]) Nutrition Notes Initial or Follow up Reassessment Current Diagnosis Sepsis,Respiratory Failure, Malnutrition Other Pertinent Diagnosis HAP, HFpEF, Elevated Troponin, ALS, Hypokalemia, Hypotension , ... Current Diet TF-Vital AF 1.2 Inderjit @ 50 ml/hr (since D 04/06) Labs/Tests 04/06: K 3.0, Crea <0.2, Glu 130, Ca 8.1. Pertinent Medications 04/06: KCl 40mEq, others nutritionally unremarkable. Height 5 ft 4.8 in Weight 46.8 kg [place] Body Weight (kg) 61.27 BMI 17.2 Intake Prior to Admission Poor Weight change and time frame No body weight change reported in 2 days. Weight Status Underweight Subjective/Other Information RD consult for routine F/U on TF tolerance/ continuation, and Low BMI assessment. Pt continues TF as prescribed, well tolerated, according to RN. Pt is on Mechanical ventilation, O2 saturation @ 96%, according to Physical Assessment Histroy notes. Pt presents constipation, according to Physical Assessment Histroy notes. Pt is swallow and Chewing impaired, according to Physical Assessment Histroy notes. Pt is alert and oriented, but continues on Mechanical Ventilation, according to Progress notes. Pt's Low BMI seems to correspond to a natural body composition, and not related to a sudden loss of body weight nor chronic malnutrition, since no signs of concern were mentioned in the Physical Assessment History or the Progress notes. Percent of energy/protein needs met: Prescribed TF-Vital AF 1.2 Inderjit @ 50 ml/hr provides for energy/protein needs (1,450 Kcal/91 g) during LOS, 98% Kcal; 100% AA. Burn Absent Trauma Absent GI Symptoms Constipation Difficulty In Swallowing,Chewing Food Allergy No Skin Integrity/Comment Unspecified Area of Concern. Current % PO Other Minimum of two criteria No #1 Nutrition Diagnosis Swallowing difficulty,Biting/ Chewing (masticatory) difficulty Comments: Change Nutrition Diagnostic for precision. Etiology ALS, Mechanical Ventilation. As Evidenced by Signs and Symptoms Pt currently on TF. Is patient on ventilator? Yes Is Patient Ambulatory and/or Out of Bed No REE-([facility]-confined to bed) [phone] Calculation Used for Recommendations [facility] Additional Notes Protein: 1.2-2 g/Kg IBW; 73- 122 g/day. Fluids: 1 ml/Kcal, or as per MD. Nutrition Intervention Nutrition Support: Continue TF-Vital AF 1.2 Inderjit @ 50 ml/hr. Flush: 80 ml water Q 4 hr, or as per MD. Kcal 1,450 Protein (gm) 91 Carbohydrates (gm) 134 Fat (gm) 65 Fluid (mL) 980 Fiber (gm) 6 % RDI: 98% Kcal; 100% AA. Goal #1 Provide at least 75% of energy /protein needs through Enteral Feeding during LOS. Goal #2 Maintain body weight within +/ -3% of admission body weight during LOS. Follow-Up By: 04/13/22 Additional Comments Continue monitoring TF tolerance and BM.
--- NOTE | 2022-04-12 11:11 | Progress Note ---
Assessment and Plan - Patient Problems (1) Respiratory failure Current Visit: Yes Status: Acute Plan to address problem: Patient presented with acute respiratory failure, with chest x-ray showing total whiteout of the right lung, due to acute pneumonia, large right pleural effusion and collapse of the right lung. Continue supportive management, antibiotics. (2) Acute coronary syndrome Current Visit: Yes Status: Acute Plan to address problem: The patient's interval ECGs while in the ICU showed dynamic changes of anterior wall ischemia or infarction. Patient has severe comorbidities including progressive total paralysis of ALS, and intercurrent respiratory failure with large right pleural effusion and total collapse of the right lung. Currently assessed as a poor candidate for aggressive cardiac management due to the multiple severe acute and chronic comorbidities. He has been placed on conservative, empiric coronary artery disease medical therapy. Subjective Date of service: 04/12/22 Principal diagnosis: Ac and ch hypercapnic and hypoxemic Resp Failure; ALS; HCAP; Sepsis; NSTEMI Interval history: The patient is on the vent, sedated. Stable sinus rhythm on relief pilot. Objective Vital Signs Temp Pulse Pulse Pulse Resp Resp BP 04/12/22 10:45 123 H 14 93/63 04/12/22 10:30 110 H 17 93/63 04/12/22 10:15 96 H 14 91/62 04/12/22 10:00 94 H 14 78/50 04/12/22 09:45 97 H 14 81/48 04/12/22 09:30 98 H 14 81/48 04/12/22 09:15 92 H 14 83/46 04/12/22 09:00 82 14 83/46 04/12/22 08:45 100 H 14 87/54 04/12/22 08:30 99 H 14 87/54 04/12/22 08:15 102 H 14 88/56 04/12/22 08:10 100 H 14 04/12/22 08:09 102 H 88/56 04/12/22 08:00 98.7 F 94 H 94 H 16 88/56 04/12/22 07:45 106 H 14 89/56 04/12/22 07:30 109 H 14 89/56 04/12/22 07:15 111 H 14 90/58 04/12/22 07:00 113 H 15 90/58 04/12/22 06:45 116 H 15 91/58 04/12/22 06:30 119 H 14 94/60 04/12/22 06:15 120 H 15 94/59 04/12/22 06:00 122 H 14 100/60 04/12/22 05:45 120 H 14 96/61 04/12/22 05:30 125 H 14 103/61 04/12/22 05:15 134 H 15 118/77 04/12/22 05:00 127 H 14 116/81 04/12/22 04:59 97/65 04/12/22 04:45 114 H 14 97/65 04/12/22 04:30 127 H 15 116/81 04/12/22 04:15 111 H 15 98/66 04/12/22 04:05 114 H 04/12/22 04:00 123 H 113 H 15 113/76 04/12/22 03:45 122 H 17 118/82 04/12/22 03:39 98.6 F 04/12/22 03:30 109 H 14 91/57 04/12/22 03:15 109 H 14 91/55 04/12/22 03:00 110 H 14 92/59 04/12/22 02:45 112 H 15 90/56 04/12/22 02:30 116 H 14 93/57 04/12/22 02:15 112 H 14 88/59 04/12/22 02:00 114 H 15 87/54 04/12/22 01:45 126 H 15 106/71 04/12/22 01:30 121 H 14 103/70 04/12/22 01:15 119 H 16 104/72 04/12/22 01:00 125 H 18 112/74 04/12/22 00:45 127 H 19 108/70 04/12/22 00:30 131 H 16 106/73 04/12/22 00:22 04/12/22 00:18 96 H 20 04/12/22 00:15 134 H 15 109/72 04/12/22 00:00 99.3 F 127 H 19 112/80 04/11/22 23:45 126 H 15 97/59 04/11/22 23:42 130 H 20 04/11/22 23:39 140 H 04/11/22 23:30 123 H 14 93/59 04/11/22 23:25 133 H 15 92/58 04/11/22 23:15 120 H 14 92/58 04/11/22 23:00 121 H 14 93/55 04/11/22 22:45 121 H 14 91/57 04/11/22 22:30 123 H 14 96/56 04/11/22 22:15 121 H 14 97/56 04/11/22 22:00 122 H 14 106/64 04/11/22 21:45 128 H 14 106/63 04/11/22 21:30 126 H 15 125/78 04/11/22 21:15 120 H 16 129/75 04/11/22 21:00 93 H 14 87/60 04/11/22 20:47 101 H 89/53 04/11/22 20:45 102 H 14 86/53 04/11/22 20:30 101 H 14 89/53 04/11/22 20:15 104 H 14 91/51 04/11/22 20:00 98.9 F 105 H 125 H 14 84/50 04/11/22 19:45 109 H 14 84/51 04/11/22 19:30 108 H 14 83/50 04/11/22 19:15 117 H 14 88/50 04/11/22 19:00 115 H 14 93/52 04/11/22 18:45 120 H 22 8950 04/11/22 18:30 120 H 16 90/51 04/11/22 18:15 124 H 22 04/11/22 18:00 131 H 26 H 102/61 04/11/22 17:45 126 H 24 99/56 04/11/22 17:31 127 H 93/53 04/11/22 17:30 130 H 16 93/53 04/11/22 17:15 138 H 18 125/74 04/11/22 17:00 138 H 14 141/83 04/11/22 16:45 132 H 15 144/86 04/11/22 16:30 129 H 15 127/82 04/11/22 16:15 120 H 15 132/75 04/11/22 16:12 135 H 19 04/11/22 16:06 91 H 90/54 04/11/22 16:00 100.4 F H 88 125 H 14 96/54 04/11/22 15:45 92 H 15 89/54 04/11/22 15:30 97 H 14 92/54 04/11/22 15:15 102 H 14 90/53 04/11/22 15:00 98 H 14 90/53 04/11/22 14:45 102 H 14 91/53 04/11/22 14:30 102 H 15 94/54 04/11/22 14:15 106 H 15 96/53 04/11/22 14:00 128 H 16 136/79 04/11/22 13:53 127 H 135/83 04/11/22 13:45 133 H 15 135/83 04/11/22 13:30 130 H 17 140/83 04/11/22 13:15 129 H 15 130/84 04/11/22 13:00 118 H 20 129/79 04/11/22 12:49 117 H 120/70 04/11/22 12:45 120 H 22 120/70 04/11/22 12:30 117 H 23 118/63 04/11/22 12:15 114 H 14 117/70 04/11/22 12:00 99 F 121 H 114 H 16 123/69 04/11/22 11:45 124 H 17 125/70 04/11/22 11:30 122 H 13 133/80 04/11/22 11:15 86 19 137/83 Pulse Ox 04/12/22 10:45 89 04/12/22 10:30 92 04/12/22 10:15 97 04/12/22 10:00 98 04/12/22 09:45 97 04/12/22 09:30 99 04/12/22 09:15 95 04/12/22 09:00 98 04/12/22 08:45 99 04/12/22 08:30 99 04/12/22 08:15 100 04/12/22 08:10 04/12/22 08:09 98 04/12/22 08:00 99 04/12/22 07:45 98 04/12/22 07:30 97 04/12/22 07:15 98 04/12/22 07:00 98 04/12/22 06:45 97 04/12/22 06:30 94 04/12/22 06:15 94 04/12/22 06:00 93 04/12/22 05:45 92 04/12/22 05:30 92 04/12/22 05:15 94 04/12/22 05:00 95 04/12/22 04:59 04/12/22 04:45 93 04/12/22 04:30 95 04/12/22 04:15 94 04/12/22 04:05 04/12/22 04:00 96 04/12/22 03:45 95 04/12/22 03:39 04/12/22 03:30 93 04/12/22 03:15 95 04/12/22 03:00 94 04/12/22 02:45 97 04/12/22 02:30 95 04/12/22 02:15 92 04/12/22 02:00 93 04/12/22 01:45 93 04/12/22 01:30 93 04/12/22 01:15 93 04/12/22 01:00 93 04/12/22 00:45 96 04/12/22 00:30 97 04/12/22 00:22 96 04/12/22 00:18 04/12/22 00:15 98 04/12/22 00:00 99 04/11/22 23:45 98 04/11/22 23:42 99 04/11/22 23:39 04/11/22 23:30 99 04/11/22 23:25 100 04/11/22 23:15 100 04/11/22 23:00 99 04/11/22 22:45 97 04/11/22 22:30 93 04/11/22 22:15 89 04/11/22 22:00 90 04/11/22 21:45 86 04/11/22 21:30 86 04/11/22 21:15 85 04/11/22 21:00 92 04/11/22 20:47 96 04/11/22 20:45 94 04/11/22 20:30 96 04/11/22 20:15 95 04/11/22 20:00 95 04/11/22 19:45 96 04/11/22 19:30 96 04/11/22 19:15 95 04/11/22 19:00 94 04/11/22 18:45 94 04/11/22 18:30 93 04/11/22 18:15 90 04/11/22 18:00 91 04/11/22 17:45 94 04/11/22 17:31 04/11/22 17:30 89 04/11/22 17:15 88 04/11/22 17:00 87 04/11/22 16:45 94 04/11/22 16:30 94 04/11/22 16:15 92 04/11/22 16:12 04/11/22 16:06 95 04/11/22 16:00 96 04/11/22 15:45 95 04/11/22 15:30 96 04/11/22 15:15 96 04/11/22 15:00 95 04/11/22 14:45 96 04/11/22 14:30 96 04/11/22 14:15 83 L 04/11/22 14:00 89 04/11/22 13:53 04/11/22 13:45 89 04/11/22 13:30 88 04/11/22 13:15 88 04/11/22 13:00 94 04/11/22 12:49 94 04/11/22 12:45 96 04/11/22 12:30 97 04/11/22 12:15 97 04/11/22 12:00 95 04/11/22 11:45 92 04/11/22 11:30 89 04/11/22 11:15 85 - Physical Examination General: Other (Intubated on mechanical ventilator) HEENT: Positive: PERRL, Normocephaly, Other (ET-tube in place) Neck: Positive: neck supple, trachea midline (intubated). Negative: JVD/HJR Cardiac: Positive: Reg Rate and Rhythm Lungs: Positive: Decreased Breath Sounds Neuro: Positive: Other (Awake, intubated on the vent) Abdomen: Positive: Soft Skin: Positive: Clear Extremities: Present: Other (TR.EDEMA). Absent: edema (NO) - Labs and Meds CBC 04/12/22 Range/Units 04:00 WBC 17.4 H (4.5-11.0) K/mm3 RBC 2.96 L (3.65-5.03) M/mm3 Hgb 9.0 L (11.8-15.2) gm/dl Hct 28.0 L (35.5-45.6) % Plt Count 203 (140-440) K/mm3 Comprehensive Metabolic Panel 04/12/22 Range/Units 04:00 Sodium 139 (137-145) mmol/L Potassium 4.6 (3.6-5.0) mmol/L Chloride 97.4 L (98-107) mmol/L Carbon Dioxide 37 H (22-30) mmol/L BUN 16 (9-20) mg/dL Creatinine < 0.2 L (0.8-1.3) mg/dL Glucose 127 H (75-100) mg/dL Calcium 8.5 (8.4-10.2) mg/dL - Allied health notes Allied health notes reviewed: nursing
--- NOTE | 2022-04-12 11:33 | Progress Note ---
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 Protein calorie malnutrition Acute Bronchopneumonia HCAP Hypotension NSTEMI Hypernatremia Acute Metabolic Encephalopathy H/o Amyotrophic Lateral Sclerosis Nonverbal at Baseline Thrombocytopenia Protein Caloric Malnutrition Constipation (suspect transient and persistent atelectasis responsible for desaturations) - RN asked top advance NGT 5 cm - resume mucomyst nebs for thick tenacious secretions - RT asked to resume scheduled CPT - FiO2 back down to 40% after good pulmonary toilet - keep peep at 10 for alveolar recruitment - continue bronchodilators with pulmonary hygiene per RT (CPT in place) - continue Seroquel - tentative trach & PEG next 24-48 hours - continue care as below otherwise; - Daily SAT and SBT assessment as tolerated - continue to wean supplemental oxygen for target O2 sat's > 90% acutely - VAP bundle addressed - continue lung protective strategies - wean per pulmonary driven protocols otherwise - continue accuchecks with glycemic control per SSI (While critically ill target blood glucose of 140-180 mg/dL; avoid hypoglycemia) - sedation prn for target RASS 0 to -1 - avoid nephrotoxins, renally dose all medications - continue to avoid benzodiazepine's, reduce the possibility of delirium - AB's per ID rec's - prn analgesia per CPOT score - Maintenance of sleep-wake cycle, avoid delirium - continue enteral nutritional support at goal rate as tolerated - G.I. & VTE prophylaxis - PT/OT/ROM exercises - continue mobility protocols for pressure ulcer prophylaxis - Monitor hemodynamics closely - continue other care per attending / other consultants - discharge planning ongoing concurrently COVID SPECIFIC INTERVENTIONS - test pending .... Re-evaluate in am & prn CONDITION: CRITICAL PROGNOSIS: GUARDED CODE STATUS: FULL CODE The high probability of a clinically significant, sudden or life-threatening deterioration of the [respiratory, cardiovascular & neurologic] system(s) requ ired my full and direct attention, intervention and personal management. The aggregate critical care time was [34] minutes without overlap. Time includes spent on; [x] Data Review and interpretation [x] Patient assessment and monitoring of vital signs [x] Documentation [x] Medication orders and management Subjective Date of service: 04/12/22 Principal diagnosis: Ac and ch hypercapnic and hypoxemic Resp Failure; ALS; HCAP; Sepsis; NSTEMI Interval history: Patient is seen today for: Acute and chronic hypercapnic and hypoxemic Respiratory Failure; ALS; HCAP; Sepsis; NSTEMI; AMS; Hypernatremia; Thrombocytopenia; Protein Caloric Malnutrition; Constipation Seen and examined at bedside; 24hour events reviewed; nursing and respiratory care staff consulted; no adverse overnight events reported to me; resting peacefully in bed; remains on MVS; his visited; FiO2 increased to 65% overnight; CXR this am without large volume atelectasis; no emesis or overt aspiration but per CXR report NGT riding high Objective Vital Signs - 12hr 04/11/22 04/11/22 04/11/22 23:39 23:42 23:45 Temperature Pulse Rate 140 H 126 H Pulse Rate [ Anterior Bilateral Throughout] Pulse Rate [ 130 H From Monitor] Respiratory 20 15 Rate Respiratory Rate [Anterior Bilateral Throughout] Blood Pressure 97/59 O2 Sat by Pulse 99 98 Oximetry 04/12/22 04/12/22 04/12/22 00:00 00:15 00:18 Temperature 99.3 F Pulse Rate 127 H 134 H Pulse Rate [ 96 H Anterior Bilateral Throughout] Pulse Rate [ From Monitor] Respiratory 19 15 Rate Respiratory 20 Rate [Anterior Bilateral Throughout] Blood Pressure 112/80 109/72 O2 Sat by Pulse 99 98 Oximetry 04/12/22 04/12/22 04/12/22 00:22 00:30 00:45 Temperature Pulse Rate 131 H 127 H Pulse Rate [ Anterior Bilateral Throughout] Pulse Rate [ From Monitor] Respiratory 16 19 Rate Respiratory Rate [Anterior Bilateral Throughout] Blood Pressure 106/73 108/70 O2 Sat by Pulse 96 97 96 Oximetry 04/12/22 04/12/22 04/12/22 01:00 01:15 01:30 Temperature Pulse Rate 125 H 119 H 121 H Pulse Rate [ Anterior Bilateral Throughout] Pulse Rate [ From Monitor] Respiratory 18 16 14 Rate Respiratory Rate [Anterior Bilateral Throughout] Blood Pressure 112/74 104/72 103/70 O2 Sat by Pulse 93 93 93 Oximetry 04/12/22 04/12/22 04/12/22 01:45 02:00 02:15 Temperature Pulse Rate 126 H 114 H 112 H Pulse Rate [ Anterior Bilateral Throughout] Pulse Rate [ From Monitor] Respiratory 15 15 14 Rate Respiratory Rate [Anterior Bilateral Throughout] Blood Pressure 106/71 87/54 88/59 O2 Sat by Pulse 93 93 92 Oximetry 04/12/22 04/12/2222 02:30 02:45 03:00 Temperature Pulse Rate 116 H 112 H 110 H Pulse Rate [ Anterior Bilateral Throughout] Pulse Rate [ From Monitor] Respiratory 14 15 14 Rate Respiratory Rate [Anterior Bilateral Throughout] Blood Pressure 93/57 90/56 92/59 O2 Sat by Pulse 95 97 94 Oximetry 04/12/22 04/12/22 04/12/22 03:15 03:30 03:39 Temperature 98.6 F Pulse Rate 109 H 109 H Pulse Rate [ Anterior Bilateral Throughout] Pulse Rate [ From Monitor] Respiratory 14 14 Rate Respiratory Rate [Anterior Bilateral Throughout] Blood Pressure 91/55 91/57 O2 Sat by Pulse 95 93 Oximetry 04/12/22 04/12/22 04/12/22 03:45 04:00 04:05 Temperature Pulse Rate 122 H 123 H 114 H Pulse Rate [ Anterior Bilateral Throughout] Pulse Rate [ 113 H From Monitor] Respiratory 17 15 Rate Respiratory Rate [Anterior Bilateral Throughout] Blood Pressure 118/82 113/76 O2 Sat by Pulse 95 96 Oximetry 04/12/22 04/12/22 04/12/22 04:15 04:30 04:45 Temperature Pulse Rate 111 H 127 H 114 H Pulse Rate [ Anterior Bilateral Throughout] Pulse Rate [ From Monitor] Respiratory 15 15 14 Rate Respiratory Rate [Anterior Bilateral Throughout] Blood Pressure 98/66 116/81 97/65 O2 Sat by Pulse 94 95 93 Oximetry 04/12/22 04/12/22 04/12/22 04:59 05:00 05:15 Temperature Pulse Rate 127 H 134 H Pulse Rate [ Anterior Bilateral Throughout] Pulse Rate [ From Monitor] Respiratory 14 15 Rate Respiratory Rate [Anterior Bilateral Throughout] Blood Pressure 97/65 116/81 118/77 O2 Sat by Pulse 95 94 Oximetry 04/12/22 04/12/22 04/12/22 05:30 05:45 06:00 Temperature Pulse Rate 125 H 120 H 122 H Pulse Rate [ Anterior Bilateral Throughout] Pulse Rate [ From Monitor] Respiratory 14 14 14 Rate Respiratory Rate [Anterior Bilateral Throughout] Blood Pressure 103/61 96/61 100/60 O2 Sat by Pulse 92 92 93 Oximetry 04/12/22 04/12/22 04/12/22 06:15 06:30 06:45 Temperature Pulse Rate 120 H 119 H 116 H Pulse Rate [ Anterior Bilateral Throughout] Pulse Rate [ From Monitor] Respiratory 15 14 15 Rate Respiratory Rate [Anterior Bilateral Throughout] Blood Pressure 94/59 94/60 91/58 O2 Sat by Pulse 94 94 97 Oximetry 04/12/22 04/12/22 04/12/22 07:00 07:15 07:30 Temperature Pulse Rate 113 H 111 H 109 H Pulse Rate [ Anterior Bilateral Throughout] Pulse Rate [ From Monitor] Respiratory 15 14 14 Rate Respiratory Rate [Anterior Bilateral Throughout] Blood Pressure 90/58 90/58 89/56 O2 Sat by Pulse 98 98 97 Oximetry 04/12/22 04/12/22 04/12/22 07:45 08:00 08:09 Temperature 98.7 F Pulse Rate 106 H 94 H 102 H Pulse Rate [ Anterior Bilateral Throughout] Pulse Rate [ 94 H From Monitor] Respiratory 14 16 Rate Respiratory Rate [Anterior Bilateral Throughout] Blood Pressure 89/56 88/56 88/56 O2 Sat by Pulse 98 99 98 Oximetry 04/12/22 04/12/22 04/12/22 08:10 08:15 08:30 Temperature Pulse Rate 102 H 99 H Pulse Rate [ 100 H Anterior Bilateral Throughout] Pulse Rate [ From Monitor] Respiratory 14 14 Rate Respiratory 14 Rate [Anterior Bilateral Throughout] Blood Pressure 88/56 87/54 O2 Sat by Pulse 100 99 Oximetry 04/12/22 04/12/22 04/12/22 08:45 09:00 09:15 Temperature Pulse Rate 100 H 82 92 H Pulse Rate [ Anterior Bilateral Throughout] Pulse Rate [ From Monitor] Respiratory 14 14 14 Rate Respiratory Rate [Anterior Bilateral Throughout] Blood Pressure 87/54 83/46 83/46 O2 Sat by Pulse 99 98 95 Oximetry 04/12/22 04/12/22 04/12/22 09:30 09:45 10:00 Temperature Pulse Rate 98 H 97 H 94 H Pulse Rate [ Anterior Bilateral Throughout] Pulse Rate [ From Monitor] Respiratory 14 14 14 Rate Respiratory Rate [Anterior Bilateral Throughout] Blood Pressure 81/48 81/48 78/50 O2 Sat by Pulse 99 97 98 Oximetry 04/12/22 04/12/22 04/12/22 10:15 10:30 10:45 Temperature Pulse Rate 96 H 110 H 123 H Pulse Rate [ Anterior Bilateral Throughout] Pulse Rate [ From Monitor] Respiratory 14 17 14 Rate Respiratory Rate [Anterior Bilateral Throughout] Blood Pressure 91/62 93/63 93/63 O2 Sat by Pulse 97 92 89 Oximetry 04/12/22 11:00 Temperature Pulse Rate 132 H Pulse Rate [ Anterior Bilateral Throughout] Pulse Rate [ From Monitor] Respiratory 15 Rate Respiratory Rate [Anterior Bilateral Throughout] Blood Pressure 105/72 O2 Sat by Pulse 85 Oximetry Constitutional: alert, appears uncomfortable, other (orally intubated in bed with mildly increased respiratory effort at rest) Eyes: non-icteric ENT: oropharynx moist, other (ETT 24 cm [place]) Neck: supple, no lymphadenopathy, no JVD, other (RIJ CVL) Effort: mildly labored Ascultation: Bilateral: diminished breath sounds (R>L base), rhonchi (basilar predominant) Percussion: Bilateral: not dull Cardiovascular: regular rate and rhythm, other (S1,S2) Gastrointestinal: normoactive bowel sounds, soft, non-tender, non-distended Integumentary: normal Extremities: no cyanosis, no edema, pink and warm, pulses normal Neurologic: pupils equal and round, other (functional quadriplegia) Psychiatric: anxious, other CBC and BMP: 04/13/22 04:30 04/13/22 04:30 ABG, PT/INR, D-dimer: ABG ABG pH 7.360 pH Units (7.350-7.450) 04/11/22 16:20 ABG pCO2 73.3 mm Hg 04/11/22 16:20 ABG pO2 57.8 mm Hg (80.0-90.0) L 04/11/22 16:20 ABG O2 Saturation 90.6 % (95.0-99.0) L 04/11/22 16:20 PT/INR, D-dimer PT 15.2 Sec. (12.2-14.9) H 04/07/22 03:51 INR 1.08 (0.87-1.13) 04/07/22 03:51 Abnormal lab findings: Abnormal Labs 04/02/22 04/02/22 04/02/22 19:39 19:39 19:39 WBC 14.3 H RBC Hgb Hct MCV 96 H Plt Count 104 L Lymph % (Auto) [place] % (Auto) Lymph # (Auto) [place] # (Auto) Seg Neutrophils % Seg Neuts % (Manual) 94.0 H Lymphocytes % (Manual) 1.0 L Seg Neutrophils # Seg Neutrophils # Man 13.4 H Lymphocytes # (Manual) 0.1 L PT 15.9 H INR 1.14 H ABG pH ABG pO2 ABG HCO3 ABG O2 Saturation ABG Base Excess ABG Hemoglobin Oxyhemoglobin Sodium 151 H Potassium Chloride Carbon Dioxide Creatinine 0.5 L Glucose POC Glucose Calcium 8.2 L Phosphorus Magnesium 1.60 L Total Creatine Kinase CK-MB (CK-2) Rel Index Troponin T 0.048 H C-Reactive Protein Total Protein 4.6 L Albumin 2.7 L LDL Cholesterol Direct 27 L Urine WBC (Auto) 04/02/22 04/03/22 04/03/22 19:42 05:14 06:30 WBC RBC Hgb Hct MCV Plt Count Lymph % (Auto) [place] % (Auto) Lymph # (Auto) [place] # (Auto) Seg Neutrophils % Seg Neuts % (Manual) Lymphocytes % (Manual) Seg Neutrophils # Seg Neutrophils # Man Lymphocytes # (Manual) PT INR ABG pH 7.471 H 7.496 H ABG pO2 47.8 L 91.0 H ABG HCO3 30.6 H ABG O2 Saturation 94.4 L ABG Base Excess 6.2 H ABG Hemoglobin 11.0 L 12.8 L Oxyhemoglobin 93.1 L Sodium 149 H Potassium 3.4 L Chloride Carbon Dioxide Creatinine 0.4 L Glucose POC Glucose Calcium Phosphorus Magnesium Total Creatine Kinase CK-MB (CK-2) Rel Index Troponin T C-Reactive Protein Total Protein Albumin LDL Cholesterol Direct Urine WBC (Auto) 04/04/22 04/04/22 04/04/22 04:18 04:18 05:50 WBC 11.8 H RBC Hgb Hct MCV Plt Count 132 L Lymph % (Auto) [place] % (Auto) Lymph # (Auto) [place] # (Auto) Seg Neutrophils % Seg Neuts % (Manual) Lymphocytes % (Manual) Seg Neutrophils # Seg Neutrophils # Man Lymphocytes # (Manual) PT INR ABG pH 7.517 H ABG pO2 115.5 H ABG HCO3 29.9 H ABG O2 Saturation ABG Base Excess 6.7 H ABG Hemoglobin 12.3 L Oxyhemoglobin Sodium Potassium 3.5 L Chloride Carbon Dioxide 31 H Creatinine 0.3 L Glucose 153 H POC Glucose Calcium Phosphorus 1.40 L Magnesium 1.50 L Total Creatine Kinase CK-MB (CK-2) Rel Index Troponin T C-Reactive Protein 31.60 H Total Protein Albumin LDL Cholesterol Direct Urine WBC (Auto) 04/05/22 04/05/22 04/05/22 02:50 05:25 11:28 WBC RBC Hgb Hct MCV Plt Count Lymph % (Auto) [place] % (Auto) Lymph # (Auto) [place] # (Auto) Seg Neutrophils % Seg Neuts % (Manual) Lymphocytes % (Manual) Seg Neutrophils # Seg Neutrophils # Man Lymphocytes # (Manual) PT INR ABG pH 7.455 H ABG pO2 50.7 L ABG HCO3 30.5 H ABG O2 Saturation 89.4 L ABG Base Excess 5.9 H ABG Hemoglobin 11.8 L Oxyhemoglobin 88.2 L Sodium Potassium Chloride Carbon Dioxide 32 H Creatinine 0.2 L Glucose 110 H POC Glucose 124 H Calcium 7.9 L Phosphorus Magnesium Total Creatine Kinase CK-MB (CK-2) Rel Index Troponin T C-Reactive Protein Total Protein Albumin LDL Cholesterol Direct Urine WBC (Auto) 04/05/22 04/05/22 04/06/22 17:45 Unknown 04:00 WBC RBC 3.55 L Hgb 11.1 L 11.5 L Hct 33.2 L 35.1 L MCV Plt Count 113 L 114 L Lymph % (Auto) [place] % (Auto) Lymph # (Auto) [place] # (Auto) Seg Neutrophils % Seg Neuts % (Manual) Lymphocytes % (Manual) Seg Neutrophils # Seg Neutrophils # Man Lymphocytes # (Manual) PT INR ABG pH ABG pO2 ABG HCO3 ABG O2 Saturation ABG Base Excess ABG Hemoglobin Oxyhemoglobin Sodium Potassium Chloride Carbon Dioxide Creatinine Glucose POC Glucose Calcium Phosphorus Magnesium Total Creatine Kinase CK-MB (CK-2) Rel Index Troponin T C-Reactive Protein Total Protein Albumin LDL Cholesterol Direct Urine WBC (Auto) 8.0 H 04/06/22 04/06/22 04/07/22 04:00 08:30 00:04 WBC RBC Hgb Hct MCV Plt Count Lymph % (Auto) [place] % (Auto) Lymph # (Auto) [place] # (Auto) Seg Neutrophils % Seg Neuts % (Manual) Lymphocytes % (Manual) Seg Neutrophils # Seg Neutrophils # Man Lymphocytes # (Manual) PT INR ABG pH ABG pO2 60.8 L ABG HCO3 30.5 H ABG O2 Saturation 93.3 L ABG Base Excess 4.9 H ABG Hemoglobin 12.4 L Oxyhemoglobin 92.1 L Sodium Potassium 3.0 L Chloride Carbon Dioxide Creatinine < 0.2 L Glucose 130 H POC Glucose 117 H Calcium 8.1 L Phosphorus Magnesium Total Creatine Kinase CK-MB (CK-2) Rel Index Troponin T C-Reactive Protein Total Protein Albumin LDL Cholesterol Direct Urine WBC (Auto) 04/07/22 04/07/22 04/07/22 03:51 03:51 03:51 WBC 14.6 H RBC 3.57 L Hgb 11.1 L Hct 33.2 L MCV Plt Count 118 L Lymph % (Auto) 4.3 L [place] % (Auto) 8.8 H Lymph # (Auto) 0.6 L [place] # (Auto) 1.3 H Seg Neutrophils % 86.6 H Seg Neuts % (Manual) Lymphocytes % (Manual) Seg Neutrophils # 12.7 H Seg Neutrophils # Man Lymphocytes # (Manual) PT 15.2 H INR ABG pH ABG pO2 ABG HCO3 ABG O2 Saturation ABG Base Excess ABG Hemoglobin Oxyhemoglobin Sodium 133 L Potassium Chloride 96.0 L Carbon Dioxide 31 H Creatinine 0.2 L Glucose 130 H POC Glucose Calcium 8.0 L Phosphorus Magnesium Total Creatine Kinase CK-MB (CK-2) Rel Index Troponin T C-Reactive Protein Total Protein Albumin LDL Cholesterol Direct Urine WBC (Auto) 04/07/22 04/07/22 04/08/22 04:25 09:10 04:49 WBC 16.1 H RBC 3.54 L Hgb 10.9 L Hct 33.3 L MCV Plt Count Lymph % (Auto) [place] % (Auto) Lymph # (Auto) [place] # (Auto) Seg Neutrophils % Seg Neuts % (Manual) Lymphocytes % (Manual) Seg Neutrophils # Seg Neutrophils # Man Lymphocytes # (Manual) PT INR ABG pH ABG pO2 71.0 L 63.4 L ABG HCO3 31.5 H 40.0 H ABG O2 Saturation 94.9 L ABG Base Excess 5.9 H 13.6 H ABG Hemoglobin 11.3 L 9.0 L Oxyhemoglobin 93.6 L Sodium Potassium Chloride Carbon Dioxide Creatinine Glucose POC Glucose Calcium Phosphorus Magnesium Total Creatine Kinase CK-MB (CK-2) Rel Index Troponin T C-Reactive Protein Total Protein Albumin LDL Cholesterol Direct Urine WBC (Auto) 04/08/22 04/08/22 04/08/22 04:49 09:53 10:25 WBC RBC Hgb Hct MCV Plt Count Lymph % (Auto) [place] % (Auto) Lymph # (Auto) [place] # (Auto) Seg Neutrophils % Seg Neuts % (Manual) Lymphocytes % (Manual) Seg Neutrophils # Seg Neutrophils # Man Lymphocytes # (Manual) PT INR ABG pH ABG pO2 ABG HCO3 34.7 H ABG O2 Saturation ABG Base Excess 7.9 H ABG Hemoglobin 11.0 L Oxyhemoglobin Sodium 136 L Potassium Chloride 97.7 L Carbon Dioxide 33 H Creatinine 0.2 L Glucose 155 H POC Glucose Calcium Phosphorus Magnesium Total Creatine Kinase CK-MB (CK-2) Rel Index Troponin T 0.030 H C-Reactive Protein Total Protein Albumin LDL Cholesterol Direct Urine WBC (Auto) 04/08/22 04/08/22 04/08/22 11:19 17:47 18:06 WBC RBC Hgb Hct MCV Plt Count Lymph % (Auto) [place] % (Auto) Lymph # (Auto) [place] # (Auto) Seg Neutrophils % Seg Neuts % (Manual) Lymphocytes % (Manual) Seg Neutrophils # Seg Neutrophils # Man Lymphocytes # (Manual) PT INR ABG pH ABG pO2 ABG HCO3 ABG O2 Saturation ABG Base Excess ABG Hemoglobin Oxyhemoglobin Sodium Potassium Chloride Carbon Dioxide Creatinine Glucose POC Glucose 121 H Calcium Phosphorus Magnesium Total Creatine Kinase 31 L 46 L CK-MB (CK-2) Rel Index 6.4 H 5.6 H Troponin T 0.030 H 0.031 H C-Reactive Protein Total Protein Albumin LDL Cholesterol Direct Urine WBC (Auto) 04/09/22 04/09/22 04/09/22 04:35 04:35 11:24 WBC 11.5 H RBC 3.16 L Hgb 9.9 L Hct 29.4 L MCV Plt Count 131 L Lymph % (Auto) [place] % (Auto) Lymph # (Auto) [place] # (Auto) Seg Neutrophils % Seg Neuts % (Manual) Lymphocytes % (Manual) Seg Neutrophils # Seg Neutrophils # Man Lymphocytes # (Manual) PT INR ABG pH ABG pO2 ABG HCO3 ABG O2 Saturation ABG Base Excess ABG Hemoglobin Oxyhemoglobin Sodium Potassium Chloride 97.1 L Carbon Dioxide 35 H Creatinine < 0.2 L Glucose 145 H POC Glucose 147 H Calcium Phosphorus Magnesium Total Creatine Kinase CK-MB (CK-2) Rel Index Troponin T C-Reactive Protein Total Protein Albumin LDL Cholesterol Direct Urine WBC (Auto) 04/09/22 04/09/22 04/09/22 13:00 17:32 23:48 WBC RBC Hgb Hct MCV Plt Count Lymph % (Auto) [place] % (Auto) Lymph # (Auto) [place] # (Auto) Seg Neutrophils % Seg Neuts % (Manual) Lymphocytes % (Manual) Seg Neutrophils # Seg Neutrophils # Man Lymphocytes # (Manual) PT INR ABG pH ABG pO2 66.6 L ABG HCO3 38.2 H ABG O2 Saturation 94.4 L ABG Base Excess 10.7 H ABG Hemoglobin 10.7 L Oxyhemoglobin 92.8 L Sodium Potassium Chloride Carbon Dioxide Creatinine Glucose POC Glucose 143 H 114 H Calcium Phosphorus Magnesium Total Creatine Kinase CK-MB (CK-2) Rel Index Troponin T C-Reactive Protein Total Protein Albumin LDL Cholesterol Direct Urine WBC (Auto) 04/10/22 04/10/22 04/10/22 04:48 04:48 05:34 WBC RBC 2.91 L Hgb 9.1 L Hct 27.7 L MCV 95 H Plt Count Lymph % (Auto) [place] % (Auto) Lymph # (Auto) [place] # (Auto) Seg Neutrophils % Seg Neuts % (Manual) Lymphocytes % (Manual) Seg Neutrophils # Seg Neutrophils # Man Lymphocytes # (Manual) PT INR ABG pH ABG pO2 ABG HCO3 ABG O2 Saturation ABG Base Excess ABG Hemoglobin Oxyhemoglobin Sodium Potassium Chloride 95.7 L Carbon Dioxide 38 H Creatinine < 0.2 L Glucose 118 H POC Glucose 127 H Calcium Phosphorus Magnesium Total Creatine Kinase CK-MB (CK-2) Rel Index Troponin T C-Reactive Protein Total Protein Albumin LDL Cholesterol Direct Urine WBC (Auto) 04/10/22 04/11/22 04/11/22 23:10 04:15 04:15 WBC 17.2 H RBC 2.98 L Hgb 9.2 L Hct 27.9 L MCV Plt Count Lymph % (Auto) [place] % (Auto) Lymph # (Auto) [place] # (Auto) Seg Neutrophils % Seg Neuts % (Manual) Lymphocytes % (Manual) Seg Neutrophils # Seg Neutrophils # Man Lymphocytes # (Manual) PT INR ABG pH ABG pO2 ABG HCO3 ABG O2 Saturation ABG Base Excess ABG Hemoglobin Oxyhemoglobin Sodium Potassium Chloride 96.1 L Carbon Dioxide 35 H Creatinine < 0.2 L Glucose 138 H POC Glucose 106 H Calcium 8.3 L Phosphorus Magnesium Total Creatine Kinase CK-MB (CK-2) Rel Index Troponin T C-Reactive Protein Total Protein Albumin LDL Cholesterol Direct Urine WBC (Auto) 04/11/22 04/11/22 04/11/22 05:31 13:18 16:20 WBC RBC Hgb Hct MCV Plt Count Lymph % (Auto) [place] % (Auto) Lymph # (Auto) [place] # (Auto) Seg Neutrophils % Seg Neuts % (Manual) Lymphocytes % (Manual) Seg Neutrophils # Seg Neutrophils # Man Lymphocytes # (Manual) PT INR ABG pH ABG pO2 57.8 L ABG HCO3 40.5 H ABG O2 Saturation 90.6 L ABG Base Excess 12.6 H ABG Hemoglobin 10.5 L Oxyhemoglobin 89.0 L Sodium Potassium Chloride Carbon Dioxide Creatinine Glucose POC Glucose 129 H 132 H Calcium Phosphorus Magnesium Total Creatine Kinase CK-MB (CK-2) Rel Index Troponin T C-Reactive Protein Total Protein Albumin LDL Cholesterol Direct Urine WBC (Auto) 04/11/22 04/11/22 04/12/22 17:29 23:17 04:00 WBC 17.4 H RBC 2.96 L Hgb 9.0 L Hct 28.0 L MCV 95 H Plt Count Lymph % (Auto) [place] % (Auto) Lymph # (Auto) [place] # (Auto) Seg Neutrophils % Seg Neuts % (Manual) Lymphocytes % (Manual) Seg Neutrophils # Seg Neutrophils # Man Lymphocytes # (Manual) PT INR ABG pH ABG pO2 ABG HCO3 ABG O2 Saturation ABG Base Excess ABG Hemoglobin Oxyhemoglobin Sodium Potassium Chloride Carbon Dioxide Creatinine Glucose POC Glucose 125 H 151 H Calcium Phosphorus Magnesium Total Creatine Kinase CK-MB (CK-2) Rel Index Troponin T C-Reactive Protein Total Protein Albumin LDL Cholesterol Direct Urine WBC (Auto) 04/12/22 04:00 WBC RBC Hgb Hct MCV Plt Count Lymph % (Auto) [place] % (Auto) Lymph # (Auto) [place] # (Auto) Seg Neutrophils % Seg Neuts % (Manual) Lymphocytes % (Manual) Seg Neutrophils # Seg Neutrophils # Man Lymphocytes # (Manual) PT INR ABG pH ABG pO2 ABG HCO3 ABG O2 Saturation ABG Base Excess ABG Hemoglobin Oxyhemoglobin Sodium Potassium Chloride 97.4 L Carbon Dioxide 37 H Creatinine < 0.2 L Glucose 127 H POC Glucose Calcium Phosphorus Magnesium Total Creatine Kinase CK-MB (CK-2) Rel Index Troponin T C-Reactive Protein Total Protein Albumin LDL Cholesterol Direct Urine WBC (Auto) Chest x-ray: report reviewed Allied health notes reviewed: nursing
--- NOTE | 2022-04-12 12:08 | Progress Note ---
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 Secondary to pneumonia. #Hospital-acquired pneumonia. Was recently seen at [facility], was initially discharged to home hospice, as such was not given antibiotics. Cultures here with Pseudomonas, Enterobacter. Complete 10 days of cefepime. #Acute hypoxic respiratory failure: Currently on the vent. #ALS: Was on home hospice. #Bacillus bacteremia: likely contaminant. Recs: -Complete 10 days of cefepime as planned -Awaiting possible trach, PEG -Overall poor prognosis given his underlying progressive ALS Carmen German MD, FACP, [place] [facility] ([facility]) O: [phone] F: [phone] C: [phone] Subjective Date of service: 04/12/22 Principal diagnosis: Ac and ch hypercapnic and hypoxemic Resp Failure; ALS; HCAP; Sepsis; NSTEMI Interval history: Afebrile. T-max 100.4 F yesterday. On 100% FiO2, remains on the vent. Objective - Exam Narrative Exam: Physical Exam: Constitutional: sedated, intubated, on the vent Head, Ears, Nose: Normocephalic, atraumatic. External ears, nose normal Eyes: Conjunctivae/corneas clear. No icterus. No ptosis. Neck: intubated Oral: intubated Cardiovascular: S1, S2 + Respiratory: AE fair bilaterally and equal GI: Soft, bowel sounds + Musculoskeletal: No pedal edema, no cyanosis. Skin: No rash or abscess Hem/Lymphatic: No palpable cervical or supraclavicular nodes. No lymphangitis Psych: no agitation Neurological: sedated, intubated, on the vent, exam limited - Constitutional Vitals: Vital Signs Temp Pulse Resp BP Pulse Ox 98.7 F 132 H 15 105/72 85 04/12/22 08:00 04/12/22 11:00 04/12/22 11:00 04/12/22 11:00 04/12/22 11:00 Temperature -Last 24 Hours Temperature 98.7 F Temperature 98.6 F Temperature 99.3 F Temperature 98.9 F Temperature 100.4 F - Labs CBC & Chem 7: 04/12/22 04:00 04/12/22 04:00 Labs: Abnormal lab results 04/11/22 04/11/22 04/11/22 Range/Units 13:18 16:20 17:29 WBC (4.5-11.0) K/mm3 RBC (3.65-5.03) M/mm3 Hgb (11.8-15.2) gm/dl Hct (35.5-45.6) % MCV (84-94) fl ABG pO2 57.8 L (80.0-90.0) mm Hg ABG HCO3 40.5 H (20.0-26.0) mmol/L ABG O2 Saturation 90.6 L (95.0-99.0) % ABG Base Excess 12.6 H (-2.0-3.0) mmol/L ABG Hemoglobin 10.5 L (14.0-18.0) gm/dl Oxyhemoglobin 89.0 L (95.0-99.0) % Chloride (98-107) mmol/L Carbon Dioxide (22-30) mmol/L Creatinine (0.8-1.3) mg/dL Glucose (75-100) mg/dL POC Glucose 132 H 125 H (70-105) mg/dL 04/11/22 04/12/22 04/12/22 Range/Units 23:17 04:00 04:00 WBC 17.4 H (4.5-11.0) K/mm3 RBC 2.96 L (3.65-5.03) M/mm3 Hgb 9.0 L (11.8-15.2) gm/dl Hct 28.0 L (35.5-45.6) % MCV 95 H (84-94) fl ABG pO2 (80.0-90.0) mm Hg ABG HCO3 (20.0-26.0) mmol/L ABG O2 Saturation (95.0-99.0) % ABG Base Excess (-2.0-3.0) mmol/L ABG Hemoglobin (14.0-18.0) gm/dl Oxyhemoglobin (95.0-99.0) % Chloride 97.4 L (98-107) mmol/L Carbon Dioxide 37 H (22-30) mmol/L Creatinine < 0.2 L (0.8-1.3) mg/dL Glucose 127 H (75-100) mg/dL POC Glucose 151 H (70-105) mg/dL
[2022-04-12] MEDS: CEFEPIME/NS 2 GM/100 ML 2 GM/100 ML BAG IV SCH (12:25)
--- NOTE | 2022-04-12 12:46 | XRay Report ---
CHEST 1 VIEW 04/12/2022 12:05 PM INDICATION / CLINICAL INFORMATION: Hypoxia. COMPARISON: 04/10/2022 FINDINGS: SUPPORT DEVICES: Endotracheal tube, nasogastric tube and right IJ venous catheter are unchanged in po sition. The sidehole of the nasogastric tube terminates near the GE junction. Consider advancement by 5 to 10 cm. HEART / MEDIASTINUM: No significant abnormality. LUNGS / PLEURA: Right basilar airspace opacity appears unchanged or slightly increased. There is new left basilar airspace opacity since the previous exam. The upper lung zones remain generally clear. N o large pleural effusion or pneumothorax. ADDITIONAL FINDINGS: No significant additional findings. IMPRESSION: 1. Bibasilar airspace opacities as described. Airspace opacity at the left lung base appears new or i ncreased. 2. Consider advancement of the nasogastric tube. Signer Name: Cuauhtemoc Mcintyre Jr, MD Signed: 04/12/2022 12:42 PM Workstation Name: [id number]
[2022-04-12] MEDS ORDERED: QUEtiapine 25 MG TAB PO STA (14:00)
--- NOTE | 2022-04-12 16:07 | Progress Note ---
Assessment and Plan - Patient Problems (1) Respiratory failure Current Visit: Yes Status: Acute Plan to address problem: 1) NPO after MN 2) Trach/peg tomorrow Subjective Date of service: 04/12/22 Patient Reports: Positive: no new complaints Objective Vital Signs - 12hr 04/12/22 04/12/22 04/12/22 04:15 04:30 04:45 Temperature Pulse Rate 111 H 127 H 114 H Pulse Rate [ Anterior Bilateral Throughout] Pulse Rate [ From Monitor] Respiratory 15 15 14 Rate Respiratory Rate [Anterior Bilateral Throughout] Blood Pressure 98/66 116/81 97/65 O2 Sat by Pulse 94 95 93 Oximetry 04/12/22 04/12/22 04/12/22 04:59 05:00 05:15 Temperature Pulse Rate 127 H 134 H Pulse Rate [ Anterior Bilateral Throughout] Pulse Rate [ From Monitor] Respiratory 14 15 Rate Respiratory Rate [Anterior Bilateral Throughout] Blood Pressure 97/65 116/81 118/77 O2 Sat by Pulse 95 94 Oximetry 04/12/22 04/12/22 04/12/22 05:30 05:45 06:00 Temperature Pulse Rate 125 H 120 H 122 H Pulse Rate [ Anterior Bilateral Throughout] Pulse Rate [ From Monitor] Respiratory 14 14 14 Rate Respiratory Rate [Anterior Bilateral Throughout] Blood Pressure 103/61 96/61 100/60 O2 Sat by Pulse 92 92 93 Oximetry 04/12/22 04/12/22 04/12/22 06:15 06:30 06:45 Temperature Pulse Rate 120 H 119 H 116 H Pulse Rate [ Anterior Bilateral Throughout] Pulse Rate [ From Monitor] Respiratory 15 14 15 Rate Respiratory Rate [Anterior Bilateral Throughout] Blood Pressure 94/59 94/60 91/58 O2 Sat by Pulse 94 94 97 Oximetry 04/12/22 04/12/22 04/12/22 07:00 07:15 07:30 Temperature Pulse Rate 113 H 111 H 109 H Pulse Rate [ Anterior Bilateral Throughout] Pulse Rate [ From Monitor] Respiratory 15 14 14 Rate Respiratory Rate [Anterior Bilateral Throughout] Blood Pressure 90/58 90/58 89/56 O2 Sat by Pulse 98 98 97 Oximetry 04/12/22 04/12/22 04/12/22 07:45 08:00 08:09 Temperature 98.7 F Pulse Rate 106 H 94 H 102 H Pulse Rate [ Anterior Bilateral Throughout] Pulse Rate [ 94 H From Monitor] Respiratory 14 16 Rate Respiratory Rate [Anterior Bilateral Throughout] Blood Pressure 89/56 88/56 88/56 O2 Sat by Pulse 98 99 98 Oximetry 04/12/22 04/12/22 04/12/22 08:10 08:15 08:30 Temperature Pulse Rate 102 H 99 H Pulse Rate [ 100 H Anterior Bilateral Throughout] Pulse Rate [ From Monitor] Respiratory 14 14 Rate Respiratory 14 Rate [Anterior Bilateral Throughout] Blood Pressure 88/56 87/54 O2 Sat by Pulse 100 99 Oximetry 04/12/22 04/12/22 04/12/22 08:45 09:00 09:15 Temperature Pulse Rate 100 H 82 92 H Pulse Rate [ Anterior Bilateral Throughout] Pulse Rate [ From Monitor] Respiratory 14 14 14 Rate Respiratory Rate [Anterior Bilateral Throughout] Blood Pressure 87/54 83/46 83/46 O2 Sat by Pulse 99 98 95 Oximetry 04/12/22 04/12/22 04/12/22 09:30 09:45 10:00 Temperature Pulse Rate 98 H 97 H 94 H Pulse Rate [ Anterior Bilateral Throughout] Pulse Rate [ From Monitor] Respiratory 14 14 14 Rate Respiratory Rate [Anterior Bilateral Throughout] Blood Pressure 81/48 81/48 78/50 O2 Sat by Pulse 99 97 98 Oximetry 04/12/22 04/12/22 04/12/22 10:15 10:30 10:45 Temperature Pulse Rate 96 H 110 H 123 H Pulse Rate [ Anterior Bilateral Throughout] Pulse Rate [ From Monitor] Respiratory 14 17 14 Rate Respiratory Rate [Anterior Bilateral Throughout] Blood Pressure 91/62 93/63 93/63 O2 Sat by Pulse 97 92 89 Oximetry 04/12/22 04/12/22 04/12/22 11:00 11:15 11:30 Temperature Pulse Rate 132 H 130 H 130 H Pulse Rate [ Anterior Bilateral Throughout] Pulse Rate [ From Monitor] Respiratory 15 16 14 Rate Respiratory Rate [Anterior Bilateral Throughout] Blood Pressure 105/72 105/72 97/53 O2 Sat by Pulse 85 73 L 94 Oximetry 04/12/22 04/12/22 04/12/22 11:45 12:00 12:15 Temperature 99 F Pulse Rate 113 H 122 H 126 H Pulse Rate [ Anterior Bilateral Throughout] Pulse Rate [ 94 H From Monitor] Respiratory 13 14 14 Rate Respiratory Rate [Anterior Bilateral Throughout] Blood Pressure 97/53 111/66 111/66 O2 Sat by Pulse 94 99 100 Oximetry 06/04/2804/12/22 04/12/22 12:24 12:30 12:45 Temperature Pulse Rate 121 H 124 H Pulse Rate [ Anterior Bilateral Throughout] Pulse Rate [ From Monitor] Respiratory 15 14 Rate Respiratory Rate [Anterior Bilateral Throughout] Blood Pressure 111/66 115/71 115/71 O2 Sat by Pulse 96 96 Oximetry 04/12/22 04/12/22 04/12/22 13:01 13:15 13:30 Temperature Pulse Rate 126 H 126 H 126 H Pulse Rate [ Anterior Bilateral Throughout] Pulse Rate [ From Monitor] Respiratory 15 13 14 Rate Respiratory Rate [Anterior Bilateral Throughout] Blood Pressure 107/74 107/74 116/71 O2 Sat by Pulse 94 91 97 Oximetry 04/12/22 04/12/22 04/12/22 13:45 14:00 14:15 Temperature Pulse Rate 129 H 131 H 123 H Pulse Rate [ Anterior Bilateral Throughout] Pulse Rate [ From Monitor] Respiratory 14 15 14 Rate Respiratory Rate [Anterior Bilateral Throughout] Blood Pressure 107/74 119/76 116/71 O2 Sat by Pulse 89 91 94 Oximetry 04/12/22 04/12/22 04/12/22 14:30 14:45 15:00 Temperature Pulse Rate 111 H 123 H 126 H Pulse Rate [ Anterior Bilateral Throughout] Pulse Rate [ From Monitor] Respiratory 14 14 15 Rate Respiratory Rate [Anterior Bilateral Throughout] Blood Pressure 105/67 119/76 122/76 O2 Sat by Pulse 94 95 81 L Oximetry 04/12/22 04/12/22 15:15 15:30 Temperature Pulse Rate 127 H 121 H Pulse Rate [ Anterior Bilateral Throughout] Pulse Rate [ From Monitor] Respiratory 16 14 Rate Respiratory Rate [Anterior Bilateral Throughout] Blood Pressure 122/76 102/66 O2 Sat by Pulse 93 97 Oximetry - Labs 04/12/22 04:00 04/12/22 04:00 Diabetes panel 04/12/22 Range/Units 04:00 Sodium 139 (137-145) mmol/L Potassium 4.6 (3.6-5.0) mmol/L Chloride 97.4 L (98-107) mmol/L Carbon Dioxide 37 H (22-30) mmol/L BUN 16 (9-20) mg/dL Creatinine < 0.2 L (0.8-1.3) mg/dL Glucose 127 H (75-100) mg/dL Calcium 8.5 (8.4-10.2) mg/dL Calcium panel 04/12/22 Range/Units 04:00 Calcium 8.5 (8.4-10.2) mg/dL Pituitary panel 04/12/22 Range/Units 04:00 Sodium 139 (137-145) mmol/L Potassium 4.6 (3.6-5.0) mmol/L Chloride 97.4 L (98-107) mmol/L Carbon Dioxide 37 H (22-30) mmol/L BUN 16 (9-20) mg/dL Creatinine < 0.2 L (0.8-1.3) mg/dL Glucose 127 H (75-100) mg/dL Calcium 8.5 (8.4-10.2) mg/dL Adrenal panel 04/12/22 Range/Units 04:00 Sodium 139 (137-145) mmol/L Potassium 4.6 (3.6-5.0) mmol/L Chloride 97.4 L (98-107) mmol/L Carbon Dioxide 37 H (22-30) mmol/L BUN 16 (9-20) mg/dL Creatinine < 0.2 L (0.8-1.3) mg/dL Glucose 127 H (75-100) mg/dL Calcium 8.5 (8.4-10.2) mg/dL
[2022-04-13] MEDS: ALBUTEROL 2.5 MG/3 ML NEBU IH SCH ×4 (00:11→23:56)
[2022-04-13] MEDS: CEFEPIME/NS 2 GM/100 ML 2 GM/100 ML BAG IV SCH ×2 (00:19→14:12)
[2022-04-13] MEDS: fentaNYL 100 MCG/2 ML INJ IV PRN ×2 (01:45→19:59)
[2022-04-13] MEDS: NITROGLYCERIN 0.2 MG PATCH 24HR TD SCH (05:09)
[2022-04-13] MEDS: HEPARIN 5,000 UNIT/1 ML VIAL SUB-Q SCH ×3 (05:09→20:59)
[2022-04-13] MEDS: METOPROLOL TARTRATE 25 MG TAB FEEDTUBE SCH ×4 (05:09→23:55)
[2022-04-13] MEDS: QUEtiapine 25 MG TAB PO SCH ×3 (05:10→20:59)
[2022-04-13 05:13] LABS: Hematocrit 25.5 % (35.5-45.6); Hemoglobin 8.4 gm/dl (11.8-15.2); Mean Corpuscular HGB Conc 33 % (32-34); Mean Corpuscular Volume 96 fl (84-94); Platelet Count 245 K/mm3 (140-440); Red Blood Count 2.66 M/mm3 (3.65-5.03); Red Cell Distribution Width 13.9 % (13.2-15.2)
[2022-04-13 05:23] LABS: INR 0.94 (0.87-1.13)
[2022-04-13 05:29] LABS: Blood Urea Nitrogen 16 mg/dL (9-20); Calcium 8.5 mg/dL (8.4-10.2); Hemolysis Index 8
[2022-04-13 05:53] LABS: BUN/Creatinine Ratio 80
[2022-04-13] MEDS: fentaNYL DRIP Premix 2,000 MCG/100 ML BAG IV SCH ×3 (06:07→20:58)
[2022-04-13] MEDS: INSULIN REGULAR, HUMAN 100 UNITS/1 ML SUB-Q SCH ×3 (06:14→17:57)
[2022-04-13] MEDS: ACETYLCYSTEINE 10% 100 MG/1 ML *FOR INHALATION USE INHALATION SCH ×3 (08:34→23:58)
[2022-04-13] MEDS ORDERED: SODIUM PHOSPHATE 15 MMOL in SODIUM CHLORIDE 0.9% 250ML 250 ML IV ONE (09:00)
[2022-04-13] MEDS: FAMOTIDINE 20 MG TAB FEEDTUBE SCH ×2 (10:48→20:59)
[2022-04-13] MEDS: DOCUSATE SODIUM 100 MG/10 ML ORAL LIQD PO SCH ×2 (10:50→20:59)
[2022-04-13] MEDS: SENNOSIDES ORAL LIQD 8.8 MG/5 ML ORAL LIQD PO SCH ×2 (10:50→20:59)
[2022-04-13] MEDS: POLYETHYLENE GLYCOL 3350 17 GM POWDER PO SCH (10:50)
--- NOTE | 2022-04-13 11:33 | Progress Note ---
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 Protein calorie malnutrition Acute Bronchopneumonia HCAP Hypotension NSTEMI Hypernatremia Acute Metabolic Encephalopathy H/o Amyotrophic Lateral Sclerosis Nonverbal at Baseline Thrombocytopenia Protein Caloric Malnutrition Constipation (suspect transient and persistent atelectasis responsible for desaturations) - repeat CXR in am - for trach and PEG today - continue to wean off Precedex as tolerated - continue mucomyst nebs for thick tenacious secretions - continue scheduled CPT - keep peep at 10 for alveolar recruitment - continue Seroquel for anxiolysis / delirium - continue care as below otherwise; - continue bronchodilators with pulmonary hygiene per RT - Daily SAT and SBT assessment as tolerated - continue to wean supplemental oxygen for target O2 sat's > 90% acutely - VAP bundle addressed - continue lung protective strategies - wean per pulmonary driven protocols otherwise - continue accuchecks with glycemic control per SSI (While critically ill target blood glucose of 140-180 mg/dL; avoid hypoglycemia) - sedation prn for target RASS 0 to -1 - avoid nephrotoxins, renally dose all medications - continue to avoid benzodiazepine's, reduce the possibility of delirium - AB's per ID rec's - prn analgesia per CPOT score - Maintenance of sleep-wake cycle, avoid delirium - continue enteral nutritional support at goal rate as tolerated - G.I. & VTE prophylaxis - PT/OT/ROM exercises - continue mobility protocols for pressure ulcer prophylaxis - Monitor hemodynamics closely - continue other care per attending / other consultants - discharge planning ongoing concurrently COVID SPECIFIC INTERVENTIONS - test pending .... Re-evaluate in am & prn CONDITION: CRITICAL PROGNOSIS: GUARDED CODE STATUS: FULL CODE The high probability of a clinically significant, sudden or life-threatening deterioration of the [respiratory, cardiovascular & neurologic] system(s) required my full and direct attention, intervention and personal management. The aggregate critical care time was [32] minutes without overlap. Time includes spent on; [x] Data Review and interpretation [x] Patient assessment and monitoring of vital signs [x] Documentation [x] Medication orders and management Subjective Date of service: 04/13/22 Principal diagnosis: Ac and ch hypercapnic and hypoxemic Resp Failure; ALS; HCAP; Sepsis; NSTEMI Interval history: Patient is seen today for: Acute and chronic hypercapnic and hypoxemic Respiratory Failure; ALS; HCAP; Sepsis; NSTEMI; AMS; Hypernatremia; Thrombo cytopenia; Protein Caloric Malnutrition; Constipation Seen and examined at bedside; 24hour events reviewed; nursing and respiratory care staff consulted; no adverse overnight events reported to me; resting peacefully in bed; remains on MVS; tentatively for trach and PEG today; desaturated overnight but FiO2 back down to 45% this am after aggressive pulmonary toilet by Rt/RN; no emesis or overt aspiration; afebrile Objective Vital Signs - 12hr 04/12/22 04/12/22 04/13/22 23:31 23:45 00:00 Temperature 99.6 F Pulse Rate 114 H 112 H 102 H Pulse Rate [ Anterior Bilateral Throughout] Pulse Rate [ From Monitor] Respiratory 14 14 14 Rate Respiratory Rate [Anterior Bilateral Throughout] Blood Pressure 91/60 91/60 81/48 O2 Sat by Pulse 94 96 95 Oximetry 04/13/22 04/13/22 04/13/22 00:07 00:15 00:16 Temperature Pulse Rate 100 H 122 H Pulse Rate [ 102 H Anterior Bilateral Throughout] Pulse Rate [ From Monitor] Respiratory 0 L 14 Rate Respiratory 14 Rate [Anterior Bilateral Throughout] Blood Pressure 81/48 81/48 O2 Sat by Pulse 97 98 Oximetry 04/13/22 04/13/22 04/13/22 00:30 00:45 01:00 Temperature Pulse Rate 101 H 108 H 105 H Pulse Rate [ Anterior Bilateral Throughout] Pulse Rate [ From Monitor] Respiratory 14 14 14 Rate Respiratory Rate [Anterior Bilateral Throughout] Blood Pressure 96/66 96/66 108/69 O2 Sat by Pulse 99 97 97 Oximetry 04/13/22 04/13/22 04/13/22 01:15 01:30 01:45 Temperature Pulse Rate 126 H 127 H 115 H Pulse Rate [ Anterior Bilateral Throughout] Pulse Rate [ From Monitor] Respiratory 17 21 16 Rate Respiratory Rate [Anterior Bilateral Throughout] Blood Pressure 108/69 125/85 125/85 O2 Sat by Pulse 97 95 94 Oximetry 04/13/22 04/13/22 04/13/22 02:01 02:15 02:30 Temperature Pulse Rate 124 H 122 H 120 H Pulse Rate [ Anterior Bilateral Throughout] Pulse Rate [ From Monitor] Respiratory 18 16 14 Rate Respiratory Rate [Anterior Bilateral Throughout] Blood Pressure 136/101 136/101 134/74 O2 Sat by Pulse 93 93 93 Oximetry 06/05/2804/13/22 04/13/22 02:45 03:00 03:06 Temperature Pulse Rate 118 H 115 H 120 H Pulse Rate [ Anterior Bilateral Throughout] Pulse Rate [ 118 H From Monitor] Respiratory 15 18 14 Rate Respiratory Rate [Anterior Bilateral Throughout] Blood Pressure 134/74 128/83 O2 Sat by Pulse 93 94 96 Oximetry 04/13/22 04/13/22 04/13/22 03:15 03:30 03:45 Temperature Pulse Rate 119 H 116 H 118 H Pulse Rate [ Anterior Bilateral Throughout] Pulse Rate [ From Monitor] Respiratory 15 19 19 Rate Respiratory Rate [Anterior Bilateral Throughout] Blood Pressure 128/83 123/82 123/82 O2 Sat by Pulse 93 94 95 Oximetry 04/13/22 04/13/22 04/13/22 04:00 04:10 04:15 Temperature Pulse Rate 115 H 108 H 113 H Pulse Rate [ Anterior Bilateral Throughout] Pulse Rate [ From Monitor] Respiratory 22 2 L 17 Rate Respiratory Rate [Anterior Bilateral Throughout] Blood Pressure 117/84 117/84 117/84 O2 Sat by Pulse 95 98 95 Oximetry 04/13/22 04/13/22 04/13/22 04:30 04:45 05:00 Temperature Pulse Rate 113 H 101 H 119 H Pulse Rate [ Anterior Bilateral Throughout] Pulse Rate [ From Monitor] Respiratory 14 14 19 Rate Respiratory Rate [Anterior Bilateral Throughout] Blood Pressure 126/81 126/81 129/82 O2 Sat by Pulse 96 98 95 Oximetry 04/13/22 04/13/22 04/13/22 05:15 05:30 05:45 Temperature Pulse Rate 127 H 123 H 122 H Pulse Rate [ Anterior Bilateral Throughout] Pulse Rate [ From Monitor] Respiratory 25 H 16 15 Rate Respiratory Rate [Anterior Bilateral Throughout] Blood Pressure 129/82 123/80 123/80 O2 Sat by Pulse 93 94 93 Oximetry 04/13/22 04/13/22 04/13/22 06:00 06:15 06:30 Temperature Pulse Rate 98 H 121 H 118 H Pulse Rate [ Anterior Bilateral Throughout] Pulse Rate [ From Monitor] Respiratory 16 17 19 Rate Respiratory Rate [Anterior Bilateral Throughout] Blood Pressure 114/67 123/80 126/81 O2 Sat by Pulse 94 92 92 Oximetry 04/13/22 04/13/22 04/13/22 06:45 07:00 07:15 Temperature Pulse Rate 116 H 110 H 119 H Pulse Rate [ Anterior Bilateral Throughout] Pulse Rate [ From Monitor] Respiratory 16 18 22 Rate Respiratory Rate [Anterior Bilateral Throughout] Blood Pressure 114/67 131/83 126/81 O2 Sat by Pulse 94 94 94 Oximetry 04/13/22 04/13/22 04/13/22 07:30 07:45 08:00 Temperature 98 F Pulse Rate 114 H 114 H 109 H Pulse Rate [ Anterior Bilateral Throughout] Pulse Rate [ 109 H From Monitor] Respiratory 16 17 17 Rate Respiratory Rate [Anterior Bilateral Throughout] Blood Pressure 132/86 132/86 113/73 O2 Sat by Pulse 96 96 96 Oximetry 04/13/22 04/13/22 04/13/22 08:15 08:30 08:34 Temperature Pulse Rate 107 H 113 H Pulse Rate [ 110 H Anterior Bilateral Throughout] Pulse Rate [ From Monitor] Respiratory 16 16 Rate Respiratory 18 Rate [Anterior Bilateral Throughout] Blood Pressure 131/87 113/73 O2 Sat by Pulse 96 98 Oximetry 04/13/22 04/13/22 04/13/22 08:45 09:00 09:15 Temperature Pulse Rate 107 H 114 H 111 H Pulse Rate [ Anterior Bilateral Throughout] Pulse Rate [ From Monitor] Respiratory 19 17 21 Rate Respiratory Rate [Anterior Bilateral Throughout] Blood Pressure 113/73 129/82 131/87 O2 Sat by Pulse 97 95 95 Oximetry 04/13/22 04/13/22 04/13/22 09:30 09:45 10:00 Temperature Pulse Rate 113 H 108 H 109 H Pulse Rate [ Anterior Bilateral Throughout] Pulse Rate [ From Monitor] Respiratory 18 19 16 Rate Respiratory Rate [Anterior Bilateral Throughout] Blood Pressure 137/90 129/82 123/82 O2 Sat by Pulse 95 95 97 Oximetry 04/13/22 10:15 Temperature Pulse Rate 109 H Pulse Rate [ Anterior Bilateral Throughout] Pulse Rate [ From Monitor] Respiratory 19 Rate Respiratory Rate [Anterior Bilateral Throughout] Blood Pressure 123/82 O2 Sat by Pulse 96 Oximetry Constitutional: alert, appears uncomfortable, other (orally intubated in bed with mildly increased respiratory effort at rest) Eyes: non-icteric ENT: oropharynx moist, other (ETT 24 cm [place]) Neck: supple, no lymphadenopathy, no JVD, other (RIJ CVL) Effort: mildly labored Ascultation: Bilateral: diminished breath sounds (R>L base), rhonchi (basilar predominant) Percussion: Bilateral: not dull Cardiovascular: regular rate and rhythm, other (S1,S2) Gastrointestinal: normoactive bowel sounds, soft, non-tender, non-distended Integumentary: normal Extremities: no cyanosis, no edema, pink and warm, pulses normal Neurologic: pupils equal and round, other (functional quadriplegia) Psychiatric: anxious, other CBC and BMP: 04/13/22 04:30 04/13/22 04:30 ABG, PT/INR, D-dimer: ABG ABG pH 7.360 pH Units (7.350-7.450) 04/11/22 16:20 ABG pCO2 73.3 mm Hg 04/11/22 16:20 ABG pO2 57.8 mm Hg (80.0-90.0) L 04/11/22 16:20 ABG O2 Saturation 90.6 % (95.0-99.0) L 04/11/22 16:20 PT/INR, D-dimer PT 13.6 Sec. (12.2-14.9) 04/13/22 04:30 INR 0.94 (0.87-1.13) 04/13/22 04:30 Abnormal lab findings: Abnormal Labs 04/02/22 04/02/22 04/02/22 19:39 19:39 19:39 WBC 14.3 H RBC Hgb Hct MCV 96 H Plt Count 104 L Lymph % (Auto) Adams % (Auto) Lymph # (Auto) Adams # (Auto) Seg Neutrophils % Seg Neuts % (Manual) 94.0 H Lymphocytes % (Manual) 1.0 L Seg Neutrophils # Seg Neutrophils # Man 13.4 H Lymphocytes # (Manual) 0.1 L PT 15.9 H INR 1.14 H ABG pH ABG pO2 ABG HCO3 ABG O2 Saturation ABG Base Excess ABG Hemoglobin Oxyhemoglobin Sodium 151 H Potassium Chloride Carbon Dioxide Creatinine 0.5 L Glucose POC Glucose Calcium 8.2 L Phosphorus Magnesium 1.60 L Total Creatine Kinase CK-MB (CK-2) Rel Index Troponin T 0.048 H C-Reactive Protein Total Protein 4.6 L Albumin 2.7 L LDL Cholesterol Direct 27 L Urine WBC (Auto) 04/02/22 04/03/22 04/03/22 19:42 05:14 06:30 WBC RBC Hgb Hct MCV Plt Count Lymph % (Auto) Adams % (Auto) Lymph # (Auto) Adams # (Auto) Seg Neutrophils % Seg Neuts % (Manual) Lymphocytes % (Manual) Seg Neutrophils # Seg Neutrophils # Man Lymphocytes # (Manual) PT INR ABG pH 7.471 H 7.496 H ABG pO2 47.8 L 91.0 H ABG HCO3 30.6 H ABG O2 Saturation 94.4 L ABG Base Excess 6.2 H ABG Hemoglobin 11.0 L 12.8 L Oxyhemoglobin 93.1 L Sodium 149 H Potassium 3.4 L Chloride Carbon Dioxide Creatinine 0.4 L Glucose POC Glucose Calcium Phosphorus Magnesium Total Creatine Kinase CK-MB (CK-2) Rel Index Troponin T C-Reactive Protein Total Protein Albumin LDL Cholesterol Direct Urine WBC (Auto) 04/04/22 04/04/22 04/04/22 04:18 04:18 05:50 WBC 11.8 H RBC Hgb Hct MCV Plt Count 132 L Lymph % (Auto) Adams % (Auto) Lymph # (Auto) Adams # (Auto) Seg Neutrophils % Seg Neuts % (Manual) Lymphocytes % (Manual) Seg Neutrophils # Seg Neutrophils # Man Lymphocytes # (Manual) PT INR ABG pH 7.517 H ABG pO2 115.5 H ABG HCO3 29.9 H ABG O2 Saturation ABG Base Excess 6.7 H ABG Hemoglobin 12.3 L Oxyhemoglobin Sodium Potassium 3.5 L Chloride Carbon Dioxide 31 H Creatinine 0.3 L Glucose 153 H POC Glucose Calcium Phosphorus 1.40 L Magnesium 1.50 L Total Creatine Kinase CK-MB (CK-2) Rel Index Troponin T C-Reactive Protein 31.60 H Total Protein Albumin LDL Cholesterol Direct Urine WBC (Auto) 04/05/22 04/05/22 04/05/22 02:50 05:25 11:28 WBC RBC Hgb Hct MCV Plt Count Lymph % (Auto) Adams % (Auto) Lymph # (Auto) Adams # (Auto) Seg Neutrophils % Seg Neuts % (Manual) Lymphocytes % (Manual) Seg Neutrophils # Seg Neutrophils # Man Lymphocytes # (Manual) PT INR ABG pH 7.455 H ABG pO2 50.7 L ABG HCO3 30.5 H ABG O2 Saturation 89.4 L ABG Base Excess 5.9 H ABG Hemoglobin 11.8 L Oxyhemoglobin 88.2 L Sodium Potassium Chloride Carbon Dioxide 32 H Creatinine 0.2 L Glucose 110 H POC Glucose 124 H Calcium 7.9 L Phosphorus Magnesium Total Creatine Kinase CK-MB (CK-2) Rel Index Troponin T C-Reactive Protein Total Protein Albumin LDL Cholesterol Direct Urine WBC (Auto) 04/05/22 04/05/22 04/06/22 17:45 Unknown 04:00 WBC RBC 3.55 L Hgb 11.1 L 11.5 L Hct 33.2 L 35.1 L MCV Plt Count 113 L 114 L Lymph % (Auto) Adams % (Auto) Lymph # (Auto) Adams # (Auto) Seg Neutrophils % Seg Neuts % (Manual) Lymphocytes % (Manual) Seg Neutrophils # Seg Neutrophils # Man Lymphocytes # (Manual) PT INR ABG pH ABG pO2 ABG HCO3 ABG O2 Saturation ABG Base Excess ABG Hemoglobin Oxyhemoglobin Sodium Potassium Chloride Carbon Dioxide Creatinine Glucose POC Glucose Calcium Phosphorus Magnesium Total Creatine Kinase CK-MB (CK-2) Rel Index Troponin T C-Reactive Protein Total Protein Albumin LDL Cholesterol Direct Urine WBC (Auto) 8.0 H 04/06/22 04/06/22 04/07/22 04:00 08:30 00:04 WBC RBC Hgb Hct MCV Plt Count Lymph % (Auto) Adams % (Auto) Lymph # (Auto) Adams # (Auto) Seg Neutrophils % Seg Neuts % (Manual) Lymphocytes % (Manual) Seg Neutrophils # Seg Neutrophils # Man Lymphocytes # (Manual) PT INR ABG pH ABG pO2 60.8 L ABG HCO3 30.5 H ABG O2 Saturation 93.3 L ABG Base Excess 4.9 H ABG Hemoglobin 12.4 L Oxyhemoglobin 92.1 L Sodium Potassium 3.0 L Chloride Carbon Dioxide Creatinine < 0.2 L Glucose 130 H POC Glucose 117 H Calcium 8.1 L Phosphorus Magnesium Total Creatine Kinase CK-MB (CK-2) Rel Index Troponin T C-Reactive Protein Total Protein Albumin LDL Cholesterol Direct Urine WBC (Auto) 04/07/22 04/07/22 04/07/22 03:51 03:51 03:51 WBC 14.6 H RBC 3.57 L Hgb 11.1 L Hct 33.2 L MCV Plt Count 118 L Lymph % (Auto) 4.3 L Adams % (Auto) 8.8 H Lymph # (Auto) 0.6 L Adams # (Auto) 1.3 H Seg Neutrophils % 86.6 H Seg Neuts % (Manual) Lymphocytes % (Manual) Seg Neutrophils # 12.7 H Seg Neutrophils # Man Lymphocytes # (Manual) PT 15.2 H INR ABG pH ABG pO2 ABG HCO3 ABG O2 Saturation ABG Base Excess ABG Hemoglobin Oxyhemoglobin Sodium 133 L Potassium Chloride 96.0 L Carbon Dioxide 31 H Creatinine 0.2 L Glucose 130 H POC Glucose Calcium 8.0 L Phosphorus Magnesium Total Creatine Kinase CK-MB (CK-2) Rel Index Troponin T C-Reactive Protein Total Protein Albumin LDL Cholesterol Direct Urine WBC (Auto) 04/07/22 04/07/22 04/08/22 04:25 09:10 04:49 WBC 16.1 H RBC 3.54 L Hgb 10.9 L Hct 33.3 L MCV Plt Count Lymph % (Auto) Adams % (Auto) Lymph # (Auto) Adams # (Auto) Seg Neutrophils % Seg Neuts % (Manual) Lymphocytes % (Manual) Seg Neutrophils # Seg Neutrophils # Man Lymphocytes # (Manual) PT INR ABG pH ABG pO2 71.0 L 63.4 L ABG HCO3 31.5 H 40.0 H ABG O2 Saturation 94.9 L ABG Base Excess 5.9 H 13.6 H ABG Hemoglobin 11.3 L 9.0 L Oxyhemoglobin 93.6 L Sodium Potassium Chloride Carbon Dioxide Creatinine Glucose POC Glucose Calcium Phosphorus Magnesium Total Creatine Kinase CK-MB (CK-2) Rel Index Troponin T C-Reactive Protein Total Protein Albumin LDL Cholesterol Direct Urine WBC (Auto) 04/08/22 04/08/22 04/08/22 04:49 09:53 10:25 WBC RBC Hgb Hct MCV Plt Count Lymph % (Auto) Adams % (Auto) Lymph # (Auto) Adams # (Auto) Seg Neutrophils % Seg Neuts % (Manual) Lymphocytes % (Manual) Seg Neutrophils # Seg Neutrophils # Man Lymphocytes # (Manual) PT INR ABG pH ABG pO2 ABG HCO3 34.7 H ABG O2 Saturation ABG Base Excess 7.9 H ABG Hemoglobin 11.0 L Oxyhemoglobin Sodium 136 L Potassium Chloride 97.7 L Carbon Dioxide 33 H Creatinine 0.2 L Glucose 155 H POC Glucose Calcium Phosphorus Magnesium Total Creatine Kinase CK-MB (CK-2) Rel Index Troponin T 0.030 H C-Reactive Protein Total Protein Albumin LDL Cholesterol Direct Urine WBC (Auto) 04/08/22 04/08/2222 11:19 17:47 18:06 WBC RBC Hgb Hct MCV Plt Count Lymph % (Auto) Adams % (Auto) Lymph # (Auto) Adams # (Auto) Seg Neutrophils % Seg Neuts % (Manual) Lymphocytes % (Manual) Seg Neutrophils # Seg Neutrophils # Man Lymphocytes # (Manual) PT INR ABG pH ABG pO2 ABG HCO3 ABG O2 Saturation ABG Base Excess ABG Hemoglobin Oxyhemoglobin Sodium Potassium Chloride Carbon Dioxide Creatinine Glucose POC Glucose 121 H Calcium Phosphorus Magnesium Total Creatine Kinase 31 L 46 L CK-MB (CK-2) Rel Index 6.4 H 5.6 H Troponin T 0.030 H 0.031 H C-Reactive Protein Total Protein Albumin LDL Cholesterol Direct Urine WBC (Auto) 04/09/22 04/09/22 04/09/22 04:35 04:35 11:24 WBC 11.5 H RBC 3.16 L Hgb 9.9 L Hct 29.4 L MCV Plt Count 131 L Lymph % (Auto) Adams % (Auto) Lymph # (Auto) Adams # (Auto) Seg Neutrophils % Seg Neuts % (Manual) Lymphocytes % (Manual) Seg Neutrophils # Seg Neutrophils # Man Lymphocytes # (Manual) PT INR ABG pH ABG pO2 ABG HCO3 ABG O2 Saturation ABG Base Excess ABG Hemoglobin Oxyhemoglobin Sodium Potassium Chloride 97.1 L Carbon Dioxide 35 H Creatinine < 0.2 L Glucose 145 H POC Glucose 147 H Calcium Phosphorus Magnesium Total Creatine Kinase CK-MB (CK-2) Rel Index Troponin T C-Reactive Protein Total Protein Albumin LDL Cholesterol Direct Urine WBC (Auto) 04/09/22 04/09/22 04/09/22 13:00 17:32 23:48 WBC RBC Hgb Hct MCV Plt Count Lymph % (Auto) Adams % (Auto) Lymph # (Auto) Adams # (Auto) Seg Neutrophils % Seg Neuts % (Manual) Lymphocytes % (Manual) Seg Neutrophils # Seg Neutrophils # Man Lymphocytes # (Manual) PT INR ABG pH ABG pO2 66.6 L ABG HCO3 38.2 H ABG O2 Saturation 94.4 L ABG Base Excess 10.7 H ABG Hemoglobin 10.7 L Oxyhemoglobin 92.8 L Sodium Potassium Chloride Carbon Dioxide Creatinine Glucose POC Glucose 143 H 114 H Calcium Phosphorus Magnesium Total Creatine Kinase CK-MB (CK-2) Rel Index Troponin T C-Reactive Protein Total Protein Albumin LDL Cholesterol Direct Urine WBC (Auto) 04/10/22 04/10/22 04/10/22 04:48 04:48 05:34 WBC RBC 2.91 L Hgb 9.1 L Hct 27.7 L MCV 95 H Plt Count Lymph % (Auto) Adams % (Auto) Lymph # (Auto) Adams # (Auto) Seg Neutrophils % Seg Neuts % (Manual) Lymphocytes % (Manual) Seg Neutrophils # Seg Neutrophils # Man Lymphocytes # (Manual) PT INR ABG pH ABG pO2 ABG HCO3 ABG O2 Saturation ABG Base Excess ABG Hemoglobin Oxyhemoglobin Sodium Potassium Chloride 95.7 L Carbon Dioxide 38 H Creatinine < 0.2 L Glucose 118 H POC Glucose 127 H Calcium Phosphorus Magnesium Total Creatine Kinase CK-MB (CK-2) Rel Index Troponin T C-Reactive Protein Total Protein Albumin LDL Cholesterol Direct Urine WBC (Auto) 04/10/22 04/11/22 04/11/22 23:10 04:15 04:15 WBC 17.2 H RBC 2.98 L Hgb 9.2 L Hct 27.9 L MCV Plt Count Lymph % (Auto) Adams % (Auto) Lymph # (Auto) Adams # (Auto) Seg Neutrophils % Seg Neuts % (Manual) Lymphocytes % (Manual) Seg Neutrophils # Seg Neutrophils # Man Lymphocytes # (Manual) PT INR ABG pH ABG pO2 ABG HCO3 ABG O2 Saturation ABG Base Excess ABG Hemoglobin Oxyhemoglobin Sodium Potassium Chloride 96.1 L Carbon Dioxide 35 H Creatinine < 0.2 L Glucose 138 H POC Glucose 106 H Calcium 8.3 L Phosphorus Magnesium Total Creatine Kinase CK-MB (CK-2) Rel Index Troponin T C-Reactive Protein Total Protein Albumin LDL Cholesterol Direct Urine WBC (Auto) 04/11/22 04/11/22 04/11/22 05:31 13:18 16:20 WBC RBC Hgb Hct MCV Plt Count Lymph % (Auto) Adams % (Auto) Lymph # (Auto) Adams # (Auto) Seg Neutrophils % Seg Neuts % (Manual) Lymphocytes % (Manual) Seg Neutrophils # Seg Neutrophils # Man Lymphocytes # (Manual) PT INR ABG pH ABG pO2 57.8 L ABG HCO3 40.5 H ABG O2 Saturation 90.6 L ABG Base Excess 12.6 H ABG Hemoglobin 10.5 L Oxyhemoglobin 89.0 L Sodium Potassium Chloride Carbon Dioxide Creatinine Glucose POC Glucose 129 H 132 H Calcium Phosphorus Magnesium Total Creatine Kinase CK-MB (CK-2) Rel Index Troponin T C-Reactive Protein Total Protein Albumin LDL Cholesterol Direct Urine WBC (Auto) 04/11/22 04/11/22 04/12/22 17:29 23:17 04:00 WBC 17.4 H RBC 2.96 L Hgb 9.0 L Hct 28.0 L MCV 95 H Plt Count Lymph % (Auto) Adams % (Auto) Lymph # (Auto) Adams # (Auto) Seg Neutrophils % Seg Neuts % (Manual) Lymphocytes % (Manual) Seg Neutrophils # Seg Neutrophils # Man Lymphocytes # (Manual) PT INR ABG pH ABG pO2 ABG HCO3 ABG O2 Saturation ABG Base Excess ABG Hemoglobin Oxyhemoglobin Sodium Potassium Chloride Carbon Dioxide Creatinine Glucose POC Glucose 125 H 151 H Calcium Phosphorus Magnesium Total Creatine Kinase CK-MB (CK-2) Rel Index Troponin T C-Reactive Protein Total Protein Albumin LDL Cholesterol Direct Urine WBC (Auto) 04/12/22 04/12/22 04/12/22 04:00 17:03 23:39 WBC RBC Hgb Hct MCV Plt Count Lymph % (Auto) Adams % (Auto) Lymph # (Auto) Adams # (Auto) Seg Neutrophils % Seg Neuts % (Manual) Lymphocytes % (Manual) Seg Neutrophils # Seg Neutrophils # Man Lymphocytes # (Manual) PT INR ABG pH ABG pO2 ABG HCO3 ABG O2 Saturation ABG Base Excess ABG Hemoglobin Oxyhemoglobin Sodium Potassium Chloride 97.4 L Carbon Dioxide 37 H Creatinine < 0.2 L Glucose 127 H POC Glucose 106 H 107 H Calcium Phosphorus Magnesium Total Creatine Kinase CK-MB (CK-2) Rel Index Troponin T C-Reactive Protein Total Protein Albumin LDL Cholesterol Direct Urine WBC (Auto) 04/13/22 04/13/22 04:30 04:30 WBC 14.1 H RBC 2.66 L Hgb 8.4 L Hct 25.5 L MCV 96 H Plt Count Lymph % (Auto) Adams % (Auto) Lymph # (Auto) Adams # (Auto) Seg Neutrophils % Seg Neuts % (Manual) Lymphocytes % (Manual) Seg Neutrophils # Seg Neutrophils # Man Lymphocytes # (Manual) PT INR ABG pH ABG pO2 ABG HCO3 ABG O2 Saturation ABG Base Excess ABG Hemoglobin Oxyhemoglobin Sodium Potassium Chloride 93.9 L Carbon Dioxide 39 H Creatinine < 0.2 L Glucose POC Glucose Calcium Phosphorus 1.90 L Magnesium Total Creatine Kinase CK-MB (CK-2) Rel Index Troponin T C-Reactive Protein Total Protein Albumin LDL Cholesterol Direct Urine WBC (Auto) Allied health notes reviewed: nursing
--- NOTE | 2022-04-13 11:44 | Progress Note ---
<ALEK SMITH - Last Filed: 04/13/22 16:56> Assessment and Plan Assessment and plan: This is a 57-year-old male with known history of ALS, recently hospitalized at [facility] admitted for acute hypoxemic respiratory failure 2/2 pneumonia Hospital Course to Date: 04/03: Intubated and Sedated on versed gtt, RASS-5. CT head/brain noted with no acute intracranial abnormality. Plan to initiated precededx gtt and wean off versed for a RASS goal of 0 to -2. CT chect also reviewed, findings are most consistent with acute bronchopneumonia. Continue empiric IV Abx, vent adjustment per CCM. ID consulted. Continue to F/U on cultures. Titrate pressor for MAP above 65. Medical records requested from [facility]. 04/04: Remains stable on the vent, easily arousable on precedex gtt, not following commands. Plan for SAT/SBT today. PRN analgesia for CPOT greater than 3. Fevers improved, cultures and procal pending. Continue current IV abx, ID also consulted. Remains on low dose pressors, titrate pressors for a MAP above 65. 04/05: Long discussion with family with use of translation phone with CCM regarding goals of care. Family to have meeting amongst themselves and informed care team of decisions. Fentanyl drip added for respiratory distress. Remains on Precedex drip. Antibiotics per ID. Given 2L NS bolus with levophed gtt 04/06: Family discussion with Dr. Grayson for goals of care. CXR shows possible mucus plug, continue CPT as FiO2 is being able to be weaned. Potassium repleted. Weaning fentnyl gtt. 04/07: Ultrasound guided thoracentesis today scheduled, inadequate amount of pleural effusion on so not completed. Patient was started on Levophed overnight which was weaned off this morning however had to be started twice a day. Remains on fentanyl and Precedex. Cardiology discontinued BB and ACEi in setting of hypotension. 04/08: COVID-19 PCR negative. Routine EEG ordered by cardiology which showed ST changes, cardiology aware. They will continue conservative treatment. Repeat troponins 0.030 which are less than admit of 0.048. Dr. Grayson had a long discu ssion with with the use of metabolic specialist today at bedside and has not made a decision regarding goals of care. Possible consult to surgery for trach/PEG early next week. Continues to require Precedex and fentanyl drip for sedation. Carvedilol/lisinopril discontinued as patient is continuously on Levophed. 04/09: No acute events reported overnight, remains on fentanyl, Precedex and Levophed drips. Dr. Grayson and Dr. Pineda updated family at bedside extensively today. Consulted surgery for trach/PEG. COVID-19 PCR negative. 04/10: Patient noted to have desaturation episodes, FiO2 increased slightly to 35%. Will add Mucomyst. Remains on fentanyl and Precedex. Off of Levophed. Surgery consulted for trach/PEG. 04/11: FiO2 increased over night likely related to hypoxia, continues on fent gtt, weaning precedex gtt as he is also on Seroquel. Will d/w CCM re scheduled or prn oxycodone 04/12: Periods of hypoxia and tachycardia this am. Symptoms improved post deep suction and tracheal lavage, Repeat CXR noted with no significant change. Continue CPT and mucomyst. Plan for possible trach/PEG tomorrow by general surgery. 04/13: Remains stable on the vent. Patient is wake and tracking but does not follow simple commands. No report of hypoxia from overnight, continue CPT and mucomyst. Plan for track and PEG today by General Surgery. Plan for LTAC placement post procedure, case management to arrange. Assessment and Plan #Acute Hypoxemic Respiratory Failure 2/ #Acute Bronchopneumonia - Intubated in the ED on 04/02 for hypoxemia and airway protection - Vent setting: PRVC-50%,10,14,400 - No ABG this am - CXR shows moderate to large layering effusion on the right, see report for full detail - CT chest also reviewed, findings are most consistent with acute bronchopneumonia. See report for full detail - CCM consulted, appreciate recommendations - Continue IV abx, CPT, and mucomyst - VAP bundle addressed - Aspiration precaution HOB above 30 - Daily SBT and SAT trials as tolerated - Daily ABG and CXR - Continue SPO2 monitoring for SPO2 goal above 92% - Plan for possible Trach/PEG tomorrow by general surgery #Sepsis #Acute Bronchopneumonia #HCAP #Leukocytosis - CXR shows moderate to large layering effusion on the right, see report for full detail - CT chest also reviewed, findings are most consistent with acute bronchopneumonia. See report for full detail - Patient was recent hospitalized for pneumonia - Patient remains afebrile - Tracheal aspirate with Pseudomonas aeruginosa, Enterobacter aerogenes - 04/02 blood culture with bacillus species, 04/05 blood culture NGTD - CRP 31.6, procalcitonin 0.08 - MRSA negative - ID on consulted, appreciate recommendations - Continue IV Abx Cefepine per ID - Continue to F/U on cultures - Daily CBC monitor #Hypotension 2/ sepsis-resolved #Suspect ischemic coronary artery disease #h/o cardiomyopathy - Low BP probably due to hypovolemia vs sedation vs infectious process - s/p Levophed gtt - Elevated troponin possibly a type II troponin leak - Cardiology consulted, appreciated recommendations - Echocardiogram shows ejection fraction of 40 to 45%, mild global hypokinesis of left ventricle - Continue BB - Continue blood pressure monitor per protocol - Titrate pressors to maintain MAP above 65 - On heparin SubQ #Hypernatremia-resolved - NGT inserted, continue FWF - Monitor and replace electrolytes as needed - Continue to trend BMP #Acute Metabolic Encephalopathy #H/o Amyotrophic Lateral Sclerosis #Nonverbal at Baseline - Presented with AMS, per family patient is nonverbal at baseline but responsive - currently intubated and arousable on precedex and fentanyl gtt - CT head/Brain with no acute intracranial process - Titrate sedation for RASS goal of 0 to -2 - Seroquel increased per CCM - Daily SAT and SBT as tolerated - Avoid benzodiazepine to reduce the possibility of delirium - PRN analgesia for CPOT greater than 3 - Maintenance of sleep-wake cycle #Thrombocytopenia-resolved - Continue to trend plt - On heparin subQ - Monitor for s/s of any active bleeding #Protein Caloric Malnutrition - Albumin 2.7, Total protein 4.6 - NGT in place, enteral nutrition initiated - Nutrition consulted #Constipation - Noted on CXR and KUB - last BM 04/08 - Continue BR #GI/DVT Prophylaxis - PPI- Pepcid - Heparin SubQ - SCDs to bilateral lower extremities while in bed #Advance Care Planning - Disease education data, care plan, diagnoses, and prognosis were discussed patient's , Carly Lopez, and patient daughter, Kaylee Warren, who t ranslated for #[phone]. They reported that patient was following at [facility] for his ALS and during recent hospitalization at [facility] they were told nothing else can be offered to patient at this time and patient was discharge home with home hospice and PO morphine. First hospice visit was on , however, patient became unresponsive yesterday and they brought in to the hospital. - Goal of care and code status were also addressed at that time. Family wants to wait for a couple days to see how patient respond to current treatment before making a decision. All questions and concerns were addressed at this time. Patient family acknowledged understanding and agreement with care plan. - Patient remains a FULL CODE status -04/05: Discussion at bedside with interpreting service with Dr. Valdivia and family state they would discuss next steps amongst themselves and let healthcare team know of decisions -04/06: extensive discussion with family ( and son) with Dr. Grayson regarding goals of care -04/08: Extensive discussion with with the use of metabolic specialist line regarding goals of care; no decision made. Possible consult to surgery for trach/PEG early next week. -04/09: Discussion with and her sister with Dr. Grayson and then with Dr. Javy oliver-> Consulted surgery for trach/peg The high probability of a clinically significant, sudden or life threatening deterioration of the [multiple] system(s) required my full and direct attention, intervention and personal management. The aggregate critical care time was [60] minutes. This time is in addition to time spent performing reported procedures but includes the following: [x] Data Review and interpretation [x] Patient assessment and monitoring of vital signs [x] Documentation [x] Medication orders and management Disposition Plan: ICU Total Time Spent with Patient (Minutes): 60 History Interval history: Patient seen and examined at the bedside. Intubated and on sedation. Easily arousable and tracking with mild stimuli, but does not follow commands. VSS, VIRGILIO overnight Hospitalist Physical - Physical exam Narrative exam: General appearance: Present: no acute distress, cachectic, other (Intubated, easily arousable on precedex and fentanyl gtts) - EENT Eyes: Present: PERRL - Neck Neck: Present: normal ROM - Respiratory Respiratory effort: normal Respiratory: bilateral: rhonchi - Cardiovascular Rhythm: regular Heart Sounds: Present: S1 & S2 - Extremities Extremities: no ischemia, pulses intact, pulses symmetrical Peripheral Pulses: within normal limits - Abdominal General gastrointestinal: soft, non-distended, normal bowel sounds - Integumentary Integumentary: Present: warm, dry - Psychiatric Psychiatric: other (Intubated, easily arousable and tracking on precedex and fentanyl gtts) - Neurologic Neurologic: other (Intubated, easily arousable and tracking on precedex and fentanyl gtts. Does not follow commands) - Allied Health Allied health notes reviewed: nursing, case management - Constitutional Vitals: Temp Pulse Resp BP Pulse Ox 98 F 109 H 19 123/82 96 04/13/22 08:00 04/13/22 10:15 04/13/22 10:15 04/13/22 10:15 04/13/22 10:15 HEART Score - HEART Score Troponin: Troponin T 0.031 ng/mL (0.00-0.029) H 04/08/22 17:47 Results - Labs CBC & Chem 7: 04/13/22 04:30 04/13/22 04:30 Labs: Laboratory Last Values WBC 14.1 K/mm3 (4.5-11.0) H 04/13/22 04:30 RBC 2.66 M/mm3 (3.65-5.03) L 04/13/22 04:30 Hgb 8.4 gm/dl (11.8-15.2) L 04/13/22 04:30 Hct 25.5 % (35.5-45.6) L 04/13/22 04:30 MCV 96 fl (84-94) H 04/13/22 04:30 MCH 32 pg (28-32) 04/13/22 04:30 MCHC 33 % (32-34) 04/13/22 04:30 RDW 13.9 % (13.2-15.2) 04/13/22 04:30 Plt Count 245 K/mm3 (140-440) 04/13/22 04:30 Lymph % (Auto) 4.3 % (13.4-35.0) L 04/07/22 03:51 Jerome % (Auto) 8.8 % (0.0-7.3) H 04/07/22 03:51 Eos % (Auto) 0.1 % (0.0-4.3) 04/07/22 03:51 Baso % (Auto) 0.2 % (0.0-1.8) 04/07/22 03:51 Lymph # (Auto) 0.6 K/mm3 (1.2-5.4) L 04/07/22 03:51 Jerome # (Auto) 1.3 K/mm3 (0.0-0.8) H 04/07/22 03:51 Eos # (Auto) 0.0 K/mm3 (0.0-0.4) 04/07/22 03:51 Baso # (Auto) 0.0 K/mm3 (0.0-0.1) 04/07/22 03:51 Add Manual Diff Complete 04/02/22 19:39 Total Counted 100 04/02/22 19:39 Seg Neutrophils % 86.6 % (40.0-70.0) H 04/07/22 03:51 Seg Neuts % (Manual) 94.0 % (40.0-70.0) H 04/02/22 19:39 Band Neutrophils % 0 % 04/02/22 19:39 Lymphocytes % (Manual) 1.0 % (13.4-35.0) L 04/02/22 19:39 Reactive Lymphs % (Man) 0 % 04/02/22 19:39 Monocytes % (Manual) 5.0 % (0.0-7.3) 04/02/22 19:39 Eosinophils % (Manual) 0 % (0.0-4.3) 04/02/22 19:39 Basophils % (Manual) 0 % (0.0-1.8) 04/02/22 19:39 Metamyelocytes % 0 % 04/02/22 19:39 Myelocytes % 0 % 04/02/22 19:39 Promyelocytes % 0 % 04/02/22 19:39 Blast Cells % 0 % 04/02/22 19:39 Nucleated RBC % Not Reportable 04/02/22 19:39 Seg Neutrophils # 12.7 K/mm3 (1.8-7.7) H 04/07/22 03:51 Seg Neutrophils # Man 13.4 K/mm3 (1.8-7.7) H 04/02/22 19:39 Band Neutrophils # 0.0 K/mm3 04/02/22 19:39 Lymphocytes # (Manual) 0.1 K/mm3 (1.2-5.4) L 04/02/22 19:39 Abs React Lymphs (Man) 0.0 K/mm3 04/02/22 19:39 Monocytes # (Manual) 0.7 K/mm3 (0.0-0.8) 04/02/22 19:39 Eosinophils # (Manual) 0.0 K/mm3 (0.0-0.4) 04/02/22 19:39 Basophils # (Manual) 0.0 K/mm3 (0.0-0.1) 04/02/22 19:39 Metamyelocytes # 0.0 K/mm3 04/02/22 19:39 Myelocytes # 0.0 K/mm3 04/02/22 19:39 Promyelocytes # 0.0 K/mm3 04/02/22 19:39 Blast Cells # 0.0 K/mm3 04/02/22 19:39 WBC Morphology Not Reportable 04/02/22 19:39 Hypersegmented Neuts Not Reportable 04/02/22 19:39 Hyposegmented Neuts Not Reportable 04/02/22 19:39 Hypogranular Neuts Not Reportable 04/02/22 19:39 Smudge Cells Not Reportable 04/02/22 19:39 Toxic Granulation Not Reportable 04/02/22 19:39 Toxic Vacuolation Not Reportable 04/02/22 19:39 Dohle Bodies Not Reportable 04/02/22 19:39 Pelger-Huet Anomaly Not Reportable 04/02/22 19:39 Terry Rods Not Reportable 04/02/22 19:39 Platelet Estimate Consistent w auto 04/02/22 19:39 Clumped Platelets Not Reportable 04/02/22 19:39 Plt Clumps, EDTA Not Reportable 04/02/22 19:39 Large Platelets Not Reportable 04/02/22 19:39 Giant Platelets Not Reportable 04/02/22 19:39 Platelet Satelliting Not Reportable 04/02/22 19:39 Plt Morphology Comment Not Reportable 04/02/22 19:39 RBC Morphology Not Reportable 04/02/22 19:39 Dimorphic RBCs Not Reportable 04/02/22 19:39 Polychromasia Not Reportable 04/02/22 19:39 Hypochromasia Not Reportable 04/02/22 19:39 Poikilocytosis Not Reportable 04/02/22 19:39 Anisocytosis 1+ 04/02/22 19:39 Microcytosis Not Reportable 04/02/22 19:39 Macrocytosis Not Reportable 04/02/22 19:39 Spherocytes Not Reportable 04/02/22 19:39 Pappenheimer Bodies Not Reportable 04/02/22 19:39 Sickle Cells Not Reportable 04/02/22 19:39 Target Cells Not Reportable 04/02/22 19:39 Tear Drop Cells Not Reportable 04/02/22 19:39 Ovalocytes Not Reportable 04/02/22 19:39 Helmet Cells Not Reportable 04/02/22 19:39 Patricio[place] Bodies Not Reportable 04/02/22 19:39 [place] Rings Not Reportable 04/02/22 19:39 Cheikh Cells Not Reportable 04/02/22 19:39 Bite Cells Not Reportable 04/02/22 19:39 Crenated Cell Not Reportable 04/02/22 19:39 Elliptocytes Not Reportable 04/02/22 19:39 Acanthocytes (Spur) Not Reportable 04/02/22 19:39 Rouleaux Not Reportable 04/02/22 19:39 Hemoglobin C Crystals Not Reportable 04/02/22 19:39 Schistocytes Not Reportable 04/02/22 19:39 Malaria parasites Not Reportable 04/02/22 19:39 [place] Bodies Not Reportable 04/02/22 19:39 Hem Pathologist Commnt No 04/02/22 19:39 PT 13.6 Sec. (12.2-14.9) 04/13/22 04:30 INR 0.94 (0.87-1.13) 04/13/22 04:30 APTT 35.7 Sec. (24.2-36.6) 04/07/22 03:51 ABG pH 7.360 pH Units (7.350-7.450) 04/11/22 16:20 ABG pCO2 73.3 mm Hg 04/11/22 16:20 ABG pO2 57.8 mm Hg (80.0-90.0) L 04/11/22 16:20 ABG HCO3 40.5 mmol/L (20.0-26.0) H 04/11/22 16:20 ABG O2 Saturation 90.6 % (95.0-99.0) L 04/11/22 16:20 ABG O2 Content 13.2 (0.0-44) 04/11/22 16:20 ABG Base Excess 12.6 mmol/L (-2.0-3.0) H 04/11/22 16:20 ABG Hemoglobin 10.5 gm/dl (14.0-18.0) L 04/11/22 16:20 ABG Carboxyhemoglobin 1.4 % (0.0-5.0) 04/11/22 16:20 ABG Methemoglobin 0.4 % (0.0-1.5) 04/11/22 16:20 Oxyhemoglobin 89.0 % (95.0-99.0) L 04/11/22 16:20 FiO2 75 % 04/11/22 16:20 Sodium 139 mmol/L (137-145) 04/13/22 04:30 Potassium 4.5 mmol/L (3.6-5.0) 04/13/22 04:30 Chloride 93.9 mmol/L (98-107) L 04/13/22 04:30 Carbon Dioxide 39 mmol/L (22-30) H 04/13/22 04:30 Anion Gap 11 mmol/L 04/13/22 04:30 BUN 16 mg/dL (9-20) 04/13/22 04:30 Creatinine < 0.2 mg/dL (0.8-1.3) L 04/13/22 04:30 Estimated GFR > 60 ml/min 04/13/22 04:30 BUN/Creatinine Ratio 80 % 04/13/22 04:30 Glucose 95 mg/dL (75-100) 04/13/22 04:30 POC Glucose 107 mg/dL (70-105) H 04/12/22 23:39 Lactic Acid 1.90 mmol/L (0.7-2.0) 04/02/22 19:39 Calcium 8.5 mg/dL (8.4-10.2) 04/13/22 04:30 Phosphorus 1.90 mg/dL (2.5-4.5) L 04/13/22 04:30 Magnesium 1.90 mg/dL (1.7-2.3) 04/13/22 04:30 Total Bilirubin 0.80 mg/dL (0.1-1.2) 04/02/22 19:39 AST 15 units/L (5-40) 04/02/22 19:39 ALT 9 units/L (7-56) 04/02/22 19:39 Alkaline Phosphatase 43 units/L (35-129) 04/02/22 19:39 Total Creatine Kinase 46 units/L (55-170) L 04/08/22 17:47 CK-MB (CK-2) 2.6 ng/mL (0.0-4.0) 04/08/22 17:47 CK-MB (CK-2) Rel Index 5.6 (0-4) H 04/08/22 17:47 Troponin T 0.031 ng/mL (0.00-0.029) H 04/08/22 17:47 C-Reactive Protein 31.60 mg/dL (0.00-1.30) H 04/04/22 04:18 Total Protein 4.6 g/dL (6.3-8.2) L 04/02/22 19:39 Albumin 2.7 g/dL (3.9-5) L 04/02/22 19:39 Albumin/Globulin Ratio 1.4 % 04/02/22 19:39 Triglycerides 80 mg/dL (2-149) 04/02/22 19:39 Cholesterol 94 mg/dL (50-199) 04/02/22 19:39 LDL Cholesterol Direct 27 mg/dL (50-130) L 04/02/22 19:39 HDL Cholesterol 47 mg/dL (40-59) 04/02/22 19:39 Cholesterol/HDL Ratio 2.00 % 04/02/22 19:39 Procalcitonin 0.08 ng/mL (<0.15) 04/04/22 04:18 Urine Color Aracely (Yellow) 04/05/22 17:45 Urine Turbidity Cloudy (Clear) 04/05/22 17:45 Urine pH 5.0 (5.0-7.0) 04/05/22 17:45 Ur Specific [place] 1.021 (1.003-1.030) 04/05/22 17:45 Urine Protein 30 mg/dl mg/dL (Negative) 04/05/22 17:45 Urine Glucose (UA) Neg mg/dL (Negative) 04/05/22 17:45 Urine Ketones Tr mg/dL (Negative) 04/05/22 17:45 Urine Blood Sm (Negative) 04/05/22 17:45 Urine Nitrite Neg (Negative) 04/05/22 17:45 Urine Bilirubin Neg (Negative) 04/05/22 17:45 Urine Urobilinogen < 2.0 mg/dL (<2.0) 04/05/22 17:45 Ur Leukocyte Esterase Tr (Negative) 04/05/22 17:45 Urine WBC (Auto) 8.0 /HPF (0.0-6.0) H 04/05/22 17:45 Urine RBC (Auto) 3.0 /HPF (0.0-6.0) 04/05/22 17:45 U Epithel Cells (Auto) 2.0 /HPF (0-13.0) 04/05/22 17:45 Urine Bacteria (Auto) 1+ /HPF (Negative) 04/02/22 Unknown Hyaline Casts 1 /LPF 04/05/22 17:45 Urine Mucus 3+ /HPF 04/05/22 17:45 Nasal Screen MRSA (PCR) Negative (Negative) 04/05/22 12:37 Vancomycin Trough 6.0 ug/mL (5.0-20.0) 04/05/22 18:53 Coronavirus (PCR) Negative (Negative) 04/07/22 14:52 Perez/IV: Voiding Method Condom Catheter Active Medications - Current Medications Current Medications: Generic Name Dose Route Start Last Admin Trade Name Freq PRN Reason Stop Dose Admin Acetaminophen 650 mg 04/02/22 23:53 04/11/22 17:31 Acetaminophen 325 Mg Tab PO 650 mg Q6H PRN Administration Pain MILD(1-3)/Fever >100.5/FAITH Acetylcysteine 200 mg 04/10/22 16:00 04/12/22 20:19 Acetylcysteine 20% Soln 4ml (200 Mg/Ml) IH Not Given Q8HRT SEGUNDO Acetylcysteine 200 mg 04/13/22 00:00 04/13/22 08:34 Acetylcysteine 10% 100 Mg/1 Ml *For Inhalation Use* INHALATION 04/15/22 00:00 Not Given Q8HRT SEGUNDO Albuterol 2.5 mg 04/06/22 16:00 04/13/22 08:33 Albuterol 2.5 Mg/3 Ml Nebu IH 2.5 mg Q8HRT SEGUNDO Administration Bisacodyl 10 mg 04/07/22 09:44 04/12/22 10:06 Bisacodyl 10 Mg Rect Supp NM 10 mg QDAY PRN Administration Constipation Dextrose 50 ml 04/06/22 17:54 Dextrose 50% In Water (25gm) 50 Ml Syringe IV Q30MIN PRN Hypoglycemia Protocol Docusate Sodium 100 mg 04/03/22 15:00 04/13/22 10:50 Docusate Sodium 100 Mg/10 Ml Oral Liqd PO Not Given BID SEGUNDO Famotidine 20 mg 04/06/22 10:00 04/13/22 10:48 Famotidine 20 Mg Tab FEEDTUBE 20 mg BID SEGUNDO Administration Fentanyl 50 mcg 04/04/22 15:56 04/13/22 01:45 Fentanyl 100 Mcg/2 Ml Inj IV 50 mcg Q2HR PRN Administration For CPOT of greater than 2 Heparin Sodium (Porcine) 5,000 unit 04/03/22 06:00 04/13/22 05:09 Heparin 5,000 Unit/1 Ml Vial SUB-Q Not Given Q8HR SEGUNDO NORepinephrine/NS 8 MG-250 ML 8 mg in 250 mls @ 3.75 mls/hr 04/02/22 22:00 04/10/22 09:20 Norepinephrine/Ns 8 Mg-250 Ml (Double Conc) IV 0 mcg/min TITRATE SEGUNDO 0 mls/hr Titration Protocol 2 MCG/MIN Dexmedetomidine HCl 400 mcg/ 104 mls @ 2.434 mls/hr 04/03/22 07:00 04/13/22 10:49 Sodium Chloride IV 0.7 mcg/kg/hr TITRATE SEGUNDO 8.518 mls/hr Administration Protocol 0.2 MCG/KG/HR Fentanyl Citrate 2,000 mcg in 100 mls @ 2.34 mls/hr 04/05/22 11:00 04/13/22 06:07 Fentanyl Drip Premix IV 4 mcg/kg/hr TITR SEGUNDO 9.36 mls/hr Administration Protocol 1 MCG/KG/HR Cefepime HCl 2 gm in 100 mls @ 200 mls/hr 04/12/22 13:00 04/13/22 00:19 Cefepime/Ns 2 Gm/100 Ml IV 04/15/22 12:59 200 mls/hr Q12H SEGUNDO Administration Protocol Insulin Human Regular 0 units 04/06/22 18:00 04/13/22 06:14 Insulin Regular, Human 100 Units/1 Ml SUB-Q Not Given Q6H [facility] Protocol Magnesium Hydroxide 30 ml 04/02/22 23:53 Magnesium Hydroxide (Mom) Oral Liqd Udc PO Q4H PRN Constipation Metoprolol Tartrate 12.5 mg 04/11/22 08:55 04/13/22 05:09 Metoprolol Tartrate 25 Mg Tab FEEDTUBE Not Given Q6HR [facility] Nitroglycerin 0.2 mg 04/11/22 06:00 04/13/22 05:09 Nitroglycerin 0.2 Mg Patch 24hr TD Not Given QDAY@0600 [facility] Ondansetron HCl 4 mg 04/02/22 23:53 Ondansetron 4 Mg/2 Ml Inj IV Q8H PRN Nausea And Vomiting Polyethylene Glycol 17 gm 04/08/22 10:00 04/13/22 10:50 Polyethylene Glycol 3350 17 Gm Powder PO Not Given QDAY [facility] Quetiapine Fumarate 100 mg 04/12/22 14:00 04/13/22 05:10 Quetiapine 25 Mg Tab PO 100 mg 0600,1600 SEGUNDO Administration Quetiapine Fumarate 50 mg 04/12/22 14:01 04/12/22 20:59 Quetiapine 25 Mg Tab PO 50 mg QHS SEGUNDO Administration Senna 17.6 mg 04/03/22 22:00 04/13/22 10:50 Sennosides Oral Liqd 8.8 Mg/5 Ml Oral Liqd PO Not Given Q12HR [facility] Sodium Chloride 10 ml 04/03/22 10:00 04/13/22 10:49 Sodium Chloride 0.9% 10 Ml Flush Syringe IV 10 ml BID SEGUNDO Administration Sodium Chloride 10 ml 04/02/22 23:53 Sodium Chloride 0.9% 10 Ml Flush Syringe IV PRN PRN LINE FLUSH Nutrition/Malnutrition Assess - Dietary Evaluation Nutrition/Malnutrition Findings: Nutrition Notes Start: 04/04/22 13:13 Freq: Status: Active Protocol: Document 04/06/22 12:38 COLLEEN (Rec: 04/06/22 13:23 COLLEEN [id number]) Nutrition Notes Initial or Follow up Reassessment Current Diagnosis Sepsis,Respiratory Failure, Malnutrition Other Pertinent Diagnosis HAP, HFpEF, Elevated Troponin, ALS, Hypokalemia, Hypotension , ... Current Diet TF-Vital AF 1.2 Inderjit @ 50 ml/hr (since D 04/06) Labs/Tests 04/06: K 3.0, Crea <0.2, Glu 130, Ca 8.1. Pertinent Medications 04/06: KCl 40mEq, others nutritionally unremarkable. Height 5 ft 4.8 in Weight 46.8 kg [place] Body Weight (kg) 61.27 BMI 17.2 Intake Prior to Admission Poor Weight change and time frame No body weight change reported in 2 days. Weight Status Underweight Subjective/Other Information RD consult for routine F/U on TF tolerance/ continuation, and Low BMI assessment. Pt continues TF as prescribed, well tolerated, according to RN. Pt is on Mechanical ventilation, O2 saturation @ 96%, according to Physical Assessment Histroy notes. Pt presents constipation, according to Physical Assessment Histroy notes. Pt is swallow and Chewing impaired, according to Physical Assessment Histroy notes. Pt is alert and oriented, but continues on Mechanical Ventilation, according to Progress notes. Pt's Low BMI seems to correspond to a natural body composition, and not related to a sudden loss of body weight nor chronic malnutrition, since no signs of concern were mentioned in the Physical Assessment History or the Progress notes. Percent of energy/protein needs met: Prescribed TF-Vital AF 1.2 Inderjit @ 50 ml/hr provides for energy/protein needs (1,450 Kcal/91 g) during LOS, 98% Kcal; 100% AA. Burn Absent Trauma Absent GI Symptoms Constipation Difficulty In Swallowing,Chewing Food Allergy No Skin Integrity/Comment Unspecified Area of Concern. Current % PO Other Minimum of two criteria No #1 Nutrition Diagnosis Swallowing difficulty,Biting/ Chewing (masticatory) difficulty Comments: Change Nutrition Diagnostic for precision. Etiology ALS, Mechanical Ventilation. As Evidenced by Signs and Symptoms Pt currently on TF. Is patient on ventilator? Yes Is Patient Ambulatory and/or Out of Bed No REE-([facility]-confined to bed) [phone] Calculation Used for Recommendations [facility] Additional Notes Protein: 1.2-2 g/Kg IBW; 73- 122 g/day. Fluids: 1 ml/Kcal, or as per MD. Nutrition Intervention Nutrition Support: Continue TF-Vital AF 1.2 Inderjit @ 50 ml/hr. Flush: 80 ml water Q 4 hr, or as per MD. Kcal 1,450 Protein (gm) 91 Carbohydrates (gm) 134 Fat (gm) 65 Fluid (mL) 980 Fiber (gm) 6 % RDI: 98% Kcal; 100% AA. Goal #1 Provide at least 75% of energy /protein needs through Enteral Feeding during LOS. Goal #2 Maintain body weight within +/ -3% of admission body weight during LOS. Follow-Up By: 04/13/22 Additional Comments Continue monitoring TF tolerance and BM. <DIXIE BROWN - Last Filed: 04/14/22 07:29> Assessment and Plan Assessment and plan: I saw and evaluated the patient. I agree with the findings and the plan of care as documented in the Nurse Practitioner's~note, with the following corrections and additions. Hospitalist Physical - Constitutional Vitals: Temp Pulse Resp BP Pulse Ox 99.4 F 96 H 14 111/70 93 04/14/22 04:00 04/14/22 07:23 04/14/22 07:23 04/14/22 07:15 04/14/22 07:15 HEART Score - HEART Score Troponin: Troponin T 0.031 ng/mL (0.00-0.029) H 04/08/22 17:47 Results - Labs CBC & Chem 7: 04/14/22 05:03 04/14/22 05:03 Labs: Laboratory Last Values WBC 15.6 K/mm3 (4.5-11.0) H 04/14/22 05:03 RBC 3.02 M/mm3 (3.65-5.03) L 04/14/22 05:03 Hgb 9.3 gm/dl (11.8-15.2) L 04/14/22 05:03 Hct 28.8 % (35.5-45.6) L 04/14/22 05:03 MCV 95 fl (84-94) H 04/14/22 05:03 MCH 31 pg (28-32) 04/14/22 05:03 MCHC 32 % (32-34) 04/14/22 05:03 RDW 13.7 % (13.2-15.2) 04/14/22 05:03 Plt Count 342 K/mm3 (140-440) 04/14/22 05:03 Lymph % (Auto) 4.3 % (13.4-35.0) L 04/07/22 03:51 Jerome % (Auto) 8.8 % (0.0-7.3) H 04/07/22 03:51 Eos % (Auto) 0.1 % (0.0-4.3) 04/07/22 03:51 Baso % (Auto) 0.2 % (0.0-1.8) 04/07/22 03:51 Lymph # (Auto) 0.6 K/mm3 (1.2-5.4) L 04/07/22 03:51 Jerome # (Auto) 1.3 K/mm3 (0.0-0.8) H 04/07/22 03:51 Eos # (Auto) 0.0 K/mm3 (0.0-0.4) 04/07/22 03:51 Baso # (Auto) 0.0 K/mm3 (0.0-0.1) 04/07/22 03:51 Add Manual Diff Complete 04/02/22 19:39 Total Counted 100 04/02/22 19:39 Seg Neutrophils % 86.6 % (40.0-70.0) H 04/07/22 03:51 Seg Neuts % (Manual) 94.0 % (40.0-70.0) H 04/02/22 19:39 Band Neutrophils % 0 % 04/02/22 19:39 Lymphocytes % (Manual) 1.0 % (13.4-35.0) L 04/02/22 19:39 Reactive Lymphs % (Man) 0 % 04/02/22 19:39 Monocytes % (Manual) 5.0 % (0.0-7.3) 04/02/22 19:39 Eosinophils % (Manual) 0 % (0.0-4.3) 04/02/22 19:39 Basophils % (Manual) 0 % (0.0-1.8) 04/02/22 19:39 Metamyelocytes % 0 % 04/02/22 19:39 Myelocytes % 0 % 04/02/22 19:39 Promyelocytes % 0 % 04/02/22 19:39 Blast Cells % 0 % 04/02/22 19:39 Nucleated RBC % Not Reportable 04/02/22 19:39 Seg Neutrophils # 12.7 K/mm3 (1.8-7.7) H 04/07/22 03:51 Seg Neutrophils # Man 13.4 K/mm3 (1.8-7.7) H 04/02/22 19:39 Band Neutrophils # 0.0 K/mm3 04/02/22 19:39 Lymphocytes # (Manual) 0.1 K/mm3 (1.2-5.4) L 04/02/22 19:39 Abs React Lymphs (Man) 0.0 K/mm3 04/02/22 19:39 Monocytes # (Manual) 0.7 K/mm3 (0.0-0.8) 04/02/22 19:39 Eosinophils # (Manual) 0.0 K/mm3 (0.0-0.4) 04/02/22 19:39 Basophils # (Manual) 0.0 K/mm3 (0.0-0.1) 04/02/22 19:39 Metamyelocytes # 0.0 K/mm3 04/02/22 19:39 Myelocytes # 0.0 K/mm3 04/02/22 19:39 Promyelocytes # 0.0 K/mm3 04/02/22 19:39 Blast Cells # 0.0 K/mm3 04/02/22 19:39 WBC Morphology Not Reportable 04/02/22 19:39 Hypersegmented Neuts Not Reportable 04/02/22 19:39 Hyposegmented Neuts Not Reportable 04/02/22 19:39 Hypogranular Neuts Not Reportable 04/02/22 19:39 Smudge Cells Not Reportable 04/02/22 19:39 Toxic Granulation Not Reportable 04/02/22 19:39 Toxic Vacuolation Not Reportable 04/02/22 19:39 Dohle Bodies Not Reportable 04/02/22 19:39 Pelger-Huet Anomaly Not Reportable 04/02/22 19:39 Terry Rods Not Reportable 04/02/22 19:39 Platelet Estimate Consistent w auto 04/02/22 19:39 Clumped Platelets Not Reportable 04/02/22 19:39 Plt Clumps, EDTA Not Reportable 04/02/22 19:39 Large Platelets Not Reportable 04/02/22 19:39 Giant Platelets Not Reportable 04/02/22 19:39 Platelet Satelliting Not Reportable 04/02/22 19:39 Plt Morphology Comment Not Reportable 04/02/22 19:39 RBC Morphology Not Reportable 04/02/22 19:39 Dimorphic RBCs Not Reportable 04/02/22 19:39 Polychromasia Not Reportable 04/02/22 19:39 Hypochromasia Not Reportable 04/02/22 19:39 Poikilocytosis Not Reportable 04/02/22 19:39 Anisocytosis 1+ 04/02/22 19:39 Microcytosis Not Reportable 04/02/22 19:39 Macrocytosis Not Reportable 04/02/22 19:39 Spherocytes Not Reportable 04/02/22 19:39 Pappenheimer Bodies Not Reportable 04/02/22 19:39 Sickle Cells Not Reportable 04/02/22 19:39 Target Cells Not Reportable 04/02/22 19:39 Tear Drop Cells Not Reportable 04/02/22 19:39 Ovalocytes Not Reportable 04/02/22 19:39 Helmet Cells Not Reportable 04/02/22 19:39 Patricio-[place] Bodies Not Reportable 04/02/22 19:39 [place] Rings Not Reportable 04/02/22 19:39 Cheikh Cells Not Reportable 04/02/22 19:39 Bite Cells Not Reportable 04/02/22 19:39 Crenated Cell Not Reportable 04/02/22 19:39 Elliptocytes Not Reportable 04/02/22 19:39 Acanthocytes (Spur) Not Reportable 04/02/22 19:39 Rouleaux Not Reportable 04/02/22 19:39 Hemoglobin C Crystals Not Reportable 04/02/22 19:39 Schistocytes Not Reportable 04/02/22 19:39 Malaria parasites Not Reportable 04/02/22 19:39 [place] Bodies Not Reportable 04/02/22 19:39 Hem Pathologist Commnt No 04/02/22 19:39 PT 13.6 Sec. (12.2-14.9) 04/13/22 04:30 INR 0.94 (0.87-1.13) 04/13/22 04:30 APTT 35.7 Sec. (24.2-36.6) 04/07/22 03:51 ABG pH 7.360 pH Units (7.350-7.450) 04/11/22 16:20 ABG pCO2 73.3 mm Hg 04/11/22 16:20 ABG pO2 57.8 mm Hg (80.0-90.0) L 04/11/22 16:20 ABG HCO3 40.5 mmol/L (20.0-26.0) H 04/11/22 16:20 ABG O2 Saturation 90.6 % (95.0-99.0) L 04/11/22 16:20 ABG O2 Content 13.2 (0.0-44) 04/11/22 16:20 ABG Base Excess 12.6 mmol/L (-2.0-3.0) H 04/11/22 16:20 ABG Hemoglobin 10.5 gm/dl (14.0-18.0) L 04/11/22 16:20 ABG Carboxyhemoglobin 1.4 % (0.0-5.0) 04/11/22 16:20 ABG Methemoglobin 0.4 % (0.0-1.5) 04/11/22 16:20 Oxyhemoglobin 89.0 % (95.0-99.0) L 04/11/22 16:20 FiO2 75 % 04/11/22 16:20 Sodium 140 mmol/L (137-145) 04/14/22 05:03 Potassium 4.2 mmol/L (3.6-5.0) 04/14/22 05:03 Chloride 93.8 mmol/L (98-107) L 04/14/22 05:03 Carbon Dioxide 42 mmol/L (22-30) H* 04/14/22 05:03 Anion Gap 8 mmol/L 04/14/22 05:03 BUN 17 mg/dL (9-20) 04/14/22 05:03 Creatinine < 0.2 mg/dL (0.8-1.3) L 04/14/22 05:03 Estimated GFR > 60 ml/min 04/14/22 05:03 BUN/Creatinine Ratio 85 % 04/14/22 05:03 Glucose 117 mg/dL (75-100) H 04/14/22 05:03 POC Glucose 134 mg/dL (70-105) H 04/13/22 17:39 Lactic Acid 1.90 mmol/L (0.7-2.0) 04/02/22 19:39 Calcium 8.6 mg/dL (8.4-10.2) 04/14/22 05:03 Phosphorus 1.90 mg/dL (2.5-4.5) L 04/13/22 04:30 Magnesium 1.90 mg/dL (1.7-2.3) 04/13/22 04:30 Total Bilirubin 0.80 mg/dL (0.1-1.2) 04/02/22 19:39 AST 15 units/L (5-40) 04/02/22 19:39 ALT 9 units/L (7-56) 04/02/22 19:39 Alkaline Phosphatase 43 units/L (35-129) 04/02/22 19:39 Total Creatine Kinase 46 units/L (55-170) L 04/08/22 17:47 CK-MB (CK-2) 2.6 ng/mL (0.0-4.0) 04/08/22 17:47 CK-MB (CK-2) Rel Index 5.6 (0-4) H 04/08/22 17:47 Troponin T 0.031 ng/mL (0.00-0.029) H 04/08/22 17:47 C-Reactive Protein 31.60 mg/dL (0.00-1.30) H 04/04/22 04:18 Total Protein 4.6 g/dL (6.3-8.2) L 04/02/22 19:39 Albumin 2.7 g/dL (3.9-5) L 04/02/22 19:39 Albumin/Globulin Ratio 1.4 % 04/02/22 19:39 Triglycerides 80 mg/dL (2-149) 04/02/22 19:39 Cholesterol 94 mg/dL (50-199) 04/02/22 19:39 LDL Cholesterol Direct 27 mg/dL (50-130) L 04/02/22 19:39 HDL Cholesterol 47 mg/dL (40-59) 04/02/22 19:39 Cholesterol/HDL Ratio 2.00 % 04/02/22 19:39 Procalcitonin 0.08 ng/mL (<0.15) 04/04/22 04:18 Urine Color Aracely (Yellow) 04/05/22 17:45 Urine Turbidity Cloudy (Clear) 04/05/22 17:45 Urine pH 5.0 (5.0-7.0) 04/05/22 17:45 Ur Specific [place] 1.021 (1.003-1.030) 04/05/22 17:45 Urine Protein 30 mg/dl mg/dL (Negative) 04/05/22 17:45 Urine Glucose (UA) Neg mg/dL (Negative) 04/05/22 17:45 Urine Ketones Tr mg/dL (Negative) 04/05/22 17:45 Urine Blood Sm (Negative) 04/05/22 17:45 Urine Nitrite Neg (Negative) 04/05/22 17:45 Urine Bilirubin Neg (Negative) 04/05/22 17:45 Urine Urobilinogen < 2.0 mg/dL (<2.0) 04/05/22 17:45 Ur Leukocyte Esterase Tr (Negative) 04/05/22 17:45 Urine WBC (Auto) 8.0 /HPF (0.0-6.0) H 04/05/22 17:45 Urine RBC (Auto) 3.0 /HPF (0.0-6.0) 04/05/22 17:45 U Epithel Cells (Auto) 2.0 /HPF (0-13.0) 04/05/22 17:45 Urine Bacteria (Auto) 1+ /HPF (Negative) 04/02/22 Unknown Hyaline Casts 1 /LPF 04/05/22 17:45 Urine Mucus 3+ /HPF 04/05/22 17:45 Nasal Screen MRSA (PCR) Negative (Negative) 04/05/22 12:37 Vancomycin Trough 6.0 ug/mL (5.0-20.0) 04/05/22 18:53 Coronavirus (PCR) Negative (Negative) 04/07/22 14:52 Perez/IV: Voiding Method Condom Catheter Active Medications - Current Medications Current Medications: Generic Name Dose Route Start Last Admin Trade Name Freq PRN Reason Stop Dose Admin Acetaminophen 650 mg 04/02/22 23:53 04/11/22 17:31 Acetaminophen 325 Mg Tab PO 650 mg Q6H PRN Administration Pain MILD(1-3)/Fever >100.5/FAITH Acetylcysteine 200 mg 04/10/22 16:00 04/13/22 20:57 Acetylcysteine 20% Soln 4ml (200 Mg/Ml) IH Not Given Q8HRT [facility] Acetylcysteine 200 mg 04/13/22 00:00 06/07/22 23:58 Acetylcysteine 10% 100 Mg/1 Ml *For Inhalation Use* INHALATION 04/15/22 0 0:00 Not Given Q8HRT SEGUNDO Albuterol 2.5 mg 04/06/22 16:00 04/14/22 07:23 Albuterol 2.5 Mg/3 Ml Nebu IH 2.5 mg Q8HRT SEGUNDO Administration Bisacodyl 10 mg 04/07/22 09:44 04/12/22 10:06 Bisacodyl 10 Mg Rect Supp NM 10 mg QDAY PRN Administration Constipation Dextrose 50 ml 04/06/22 17:54 Dextrose 50% In Water (25gm) 50 Ml Syringe IV Q30MIN PRN Hypoglycemia Protocol Docusate Sodium 100 mg 04/03/22 15:00 04/13/22 20:59 Docusate Sodium 100 Mg/10 Ml Oral Liqd PO 100 mg BID SEGUNDO Administration Famotidine 20 mg 04/06/22 10:00 04/13/22 20:59 Famotidine 20 Mg Tab FEEDTUBE 20 mg BID SEGUNDO Administration Fentanyl 50 mcg 04/04/22 15:56 04/14/22 05:18 Fentanyl 100 Mcg/2 Ml Inj IV 50 mcg Q2HR PRN Administration For CPOT of greater than 2 Heparin Sodium (Porcine) 5,000 unit 04/03/22 06:00 04/14/22 05:06 Heparin 5,000 Unit/1 Ml Vial SUB-Q Not Given Q8HR SEGUNDO NORepinephrine/NS 8 MG-250 ML 8 mg in 250 mls @ 3.75 mls/hr 04/02/22 22:00 04/10/22 09:20 Norepinephrine/Ns 8 Mg-250 Ml (Double Conc) IV 0 mcg/min TITRATE SEGUNDO 0 mls/hr Titration Protocol 2 MCG/MIN Dexmedetomidine HCl 400 mcg/ 104 mls @ 2.434 mls/hr 04/03/22 07:00 04/13/22 23:11 Sodium Chloride IV 0.7 mcg/kg/hr TITRATE SEGUNDO 8.518 mls/hr Administration Protocol 0.2 MCG/KG/HR Fentanyl Citrate 2,000 mcg in 100 mls @ 2.34 mls/hr 04/05/22 11:00 04/14/22 05:07 Fentanyl Drip Premix IV 4 mcg/kg/hr TITR SEGUNDO 9.36 mls/hr Administration Protocol 1 MCG/KG/HR Cefepime HCl 2 gm in 100 mls @ 200 mls/hr 04/12/22 13:00 04/14/22 00:16 Cefepime/Ns 2 Gm/100 Ml IV 04/15/22 12:59 200 mls/hr Q12H SEGUNDO Administration Protocol Insulin Human Regular 0 units 04/06/22 18:00 04/14/22 05:42 Insulin Regular, Human 100 Units/1 Ml SUB-Q Not Given Q6H [facility] Protocol Magnesium Hydroxide 30 ml 04/02/22 23:53 Magnesium Hydroxide (Mom) Oral Liqd Udc PO Q4H PRN Constipation Metoprolol Tartrate 12.5 mg 04/11/22 08:55 04/14/22 05:07 Metoprolol Tartrate 25 Mg Tab FEEDTUBE 12.5 mg Q6HR SEGUNDO Administration Nitroglycerin 0.2 mg 04/11/22 06:00 04/14/22 05:07 Nitroglycerin 0.2 Mg Patch 24hr TD Not Given QDAY@0600 SEGUNDO Ondansetron HCl 4 mg 04/02/22 23:53 Ondansetron 4 Mg/2 Ml Inj IV Q8H PRN Nausea And Vomiting Polyethylene Glycol 17 gm 04/08/22 10:00 04/13/22 10:50 Polyethylene Glycol 3350 17 Gm Powder PO Not Given QDAY [facility] Quetiapine Fumarate 100 mg 04/12/22 14:00 04/14/22 05:07 Quetiapine 25 Mg Tab PO 100 mg 0600,1600 SEGUNDO Administration Quetiapine Fumarate 50 mg 04/12/22 14:01 04/13/22 20:59 Quetiapine 25 Mg Tab PO 50 mg QHS SEGUNDO Administration Senna 17.6 mg 04/03/22 22:00 04/13/22 20:59 Sennosides Oral Liqd 8.8 Mg/5 Ml Oral Liqd PO 17.6 mg Q12HR SEGUNDO Administration Sodium Chloride 10 ml 04/03/22 10:00 04/13/22 20:59 Sodium Chloride 0.9% 10 Ml Flush Syringe IV 10 ml BID SEGUNDO Administration Sodium Chloride 10 ml 04/02/22 23:53 Sodium Chloride 0.9% 10 Ml Flush Syringe IV PRN PRN LINE FLUSH Nutrition/Malnutrition Assess - Dietary Evaluation Nutrition/Malnutrition Findings: Nutrition Notes Start: 04/04/22 13:1 3 Freq: Status: Active Protocol: Document 04/13/22 12:41 COLLEEN (Rec: 04/13/22 13:09 COLLEEN [id number]) Nutrition Notes Initial or Follow up Reassessment Current Diagnosis Coronary Artery Disease, Respiratory Failure, Malnutrition Other Pertinent Diagnosis HCAP, HFpEF, ALS, Pleural Effusion, R-Lung Collapse, Hypotension, ... Current Diet NPO (since 04/13 00:01). Labs/Tests 04/13: Cl 93.9, CO2 39, Crea < 0.2, Phos 1.9. Pertinent Medications 04/13: Nutritionally unremarkable. Height 5 ft 4.8 in Weight 46.8 kg [place] Body Weight (kg) 61.27 BMI 17.2 Weight change and time frame No body weight change reported in 9 days. Weight Status Underweight Subjective/Other Information RD consult for routine F/U on TF tolerance/continuation. Pt currently on NPO. Pt is on Mechanical ventilation, O2 saturation @ 96%, according to Physical Assessment Histroy notes. Pt is awake and tracking, but unable to follow simple commands, according to Progress notes. Procedure planned for 04/13: Trach/PEG, but with moderate to high risk of associated cardiac event, according to Progress notes. Pt to be placed on LTAC facility after procedure. Percent of energy/protein needs met: Pt currently on NPO. Prescribed TF-Vital AF 1.2 Inderjit @ 50 ml/hr provides for energy/protein needs (1,450 Kcal/91 g) during LOS, 98% Kcal; 100% AA. Burn Absent Trauma Absent GI Symptoms Constipation Difficulty In Swallowing,Chewing Food Allergy No Skin Integrity/Comment Sacral skin tear. Current % PO Other Minimum of two criteria No #1 Nutrition Diagnosis Inadequate oral intake Comments: Procedure planned for 04/13: Trach/PEG, but with moderate to high risk of associated cardiac event, according to Progress notes. Diagnosis Progress(for reassessment Continues documentation) Is patient on ventilator? Yes Is Patient Ambulatory and/or Out of Bed No REE-(Greer-St. Jeor-confined to bed) [phone] Calculation Used for Recommendations Greer-St Jeor Additional Notes Protein: 1.2-2 g/Kg IBW; 73- 122 g/day. Fluids: 1 ml/Kcal, or as per MD. Nutrition Intervention Nutrition Support: When pertinent, resume TF- Vital AF 1.2 Inderjit @ 50 ml/hr. Flush: 80 ml water Q 4 hr, or as per MD. Kcal 1,450 Protein (gm) 91 Carbohydrates (gm) 134 Fat (gm) 65 Fluid (mL) 980 Fiber (gm) 6 % RDI: 98% Kcal; 100% AA. Goal #1 Provide at least 75% of energy /protein needs through Enteral Feeding during LOS. Goal #2 Maintain body weight within +/ -3% of admission body weight during LOS. Follow-Up By: 04/20/22 Additional Comments When pertinent, continue monitoring TF tolerance and BM .
--- NOTE | 2022-04-13 11:48 | Progress Note ---
Assessment and Plan - Patient Problems (1) Respiratory failure Current Visit: Yes Status: Acute Plan to address problem: Patient presented with acute respiratory failure, with chest x-ray showing total whiteout of the right lung, due to acute pneumonia, large right pleural effusion and collapse of the right lung. Continue supportive management, antibiotics. (2) Acute coronary syndrome Current Visit: Yes Status: Acute Plan to address problem: The patient's interval ECGs while in the ICU showed dynamic changes of anterior wall ischemia or infarction. Patient has severe comorbidities including progressive total paralysis of ALS, and intercurrent respiratory failure with large right pleural effusion and total collapse of the right lung. Currently assessed as a poor candidate for aggressive cardiac management due to the multiple severe acute and chronic comorbidities. He has been placed on conservative, empiric coronary artery disease medical therapy. A trach PEG procedure is planned, moderate to high risk of associated cardiac event. Subjective Date of service: 04/13/22 Principal diagnosis: Ac and ch hypercapnic and hypoxemic Resp Failure; ALS; HCAP; Sepsis; NSTEMI Interval history: Patient is sedated, on the vent. Heart rate is 92, sinus rhythm, blood pressure 125 systolic. Objective Vital Signs Temp Pulse Pulse Pulse Resp Resp BP 04/13/22 10:15 109 H 19 123/82 04/13/22 10:00 109 H 16 123/82 04/13/22 09:45 108 H 19 129/82 04/13/22 09:30 113 H 18 137/90 04/13/22 09:15 111 H 21 131/87 04/13/22 09:00 114 H 17 129/82 04/13/22 08:45 107 H 19 113/73 04/13/22 08:34 110 H 18 04/13/22 08:30 113 H 16 113/73 04/13/22 08:15 107 H 16 131/87 04/13/22 08:00 98 F 109 H 109 H 17 113/73 04/13/22 07:45 114 H 17 132/86 04/13/22 07:30 114 H 16 132/86 04/13/22 07:15 119 H 22 126/81 04/13/22 07:00 110 H 18 131/83 04/13/22 06:45 116 H 16 114/67 04/13/22 06:30 118 H 19 126/81 04/13/22 06:15 121 H 17 123/80 04/13/22 06:00 98 H 16 114/67 04/13/22 05:45 122 H 15 123/80 04/13/22 05:30 123 H 16 123/80 04/13/22 05:15 127 H 25 H 129/82 04/13/22 05:00 119 H 19 129/82 04/13/22 04:45 101 H 14 126/81 04/13/22 04:30 113 H 14 126/81 04/13/22 04:15 113 H 17 117/84 04/13/22 04:10 108 H 2 L 117/84 04/13/22 04:00 115 H 22 117/84 04/13/22 03:45 118 H 19 123/82 04/13/22 03:30 116 H 19 123/82 04/13/22 03:15 119 H 15 128/83 04/13/22 03:06 120 H 118 H 14 04/13/22 03:00 115 H 18 128/83 04/13/22 02:45 118 H 15 134/74 04/13/22 02:30 120 H 14 134/74 04/13/22 02:15 122 H 16 136/101 04/13/22 02:01 124 H 18 136/101 04/13/22 01:45 115 H 16 125/85 04/13/22 01:30 127 H 21 125/85 04/13/22 01:15 126 H 17 108/69 04/13/22 01:00 105 H 14 108/69 04/13/22 00:45 108 H 14 96/66 04/13/22 00:30 101 H 14 96/66 04/13/22 00:16 102 H 14 04/13/22 00:15 122 H 14 81/48 04/13/22 00:07 100 H 0 L 81/48 04/13/22 00:00 99.6 F 102 H 14 81/48 04/12/22 23:45 112 H 14 91/60 04/12/22 23:31 114 H 14 91/60 04/12/22 23:30 113 H 14 91/60 04/12/22 23:15 117 H 14 95/61 04/12/22 23:08 118 H 118 H 14 04/12/22 23:00 121 H 14 95/61 04/12/22 22:45 133 H 14 120/74 04/12/22 22:30 141 H 14 120/74 04/12/22 22:15 140 H 14 106/67 04/12/22 22:00 134 H 14 106/67 04/12/22 21:45 147 H 15 116/93 04/12/22 21:30 140 H 14 116/93 04/12/22 21:15 127 H 14 101/59 04/12/22 21:00 95 H 14 92/56 04/12/22 20:45 103 H 14 92/56 04/12/22 20:30 105 H 14 92/56 04/12/22 20:15 110 H 14 93/57 04/12/22 20:09 109 H 04/12/22 20:00 100.2 F H 111 H 104 H 14 93/57 04/12/22 19:45 113 H 14 87/56 04/12/22 19:30 110 H 14 87/56 04/12/22 19:15 112 H 14 97/60 04/12/22 19:00 112 H 14 97/60 04/12/22 18:45 111 H 14 99/58 04/12/22 18:30 111 H 14 99/58 04/12/22 18:15 113 H 14 94/55 04/12/22 18:00 111 H 14 93/56 04/12/22 17:45 109 H 14 93/56 04/12/22 17:30 111 H 14 93/56 04/12/22 17:15 115 H 14 121/78 04/12/22 17:09 119 H 04/12/22 17:00 125 H 14 121/78 04/12/22 16:45 120 H 14 116/80 04/12/22 16:36 124 H 14 04/12/22 16:31 126 H 116/80 04/12/22 16:30 124 H 14 116/80 04/12/22 16:15 129 H 15 101/63 04/12/22 16:00 98.2 F 119 H 94 H 14 101/63 04/12/22 15:45 121 H 14 102/66 04/12/22 15:30 121 H 14 102/66 04/12/22 15:15 127 H 16 122/76 04/12/22 15:00 126 H 15 122/76 04/12/22 14:45 123 H 14 119/76 04/12/22 14:30 111 H 14 105/67 04/12/22 14:15 123 H 14 116/71 04/12/22 14:00 131 H 15 119/76 04/12/22 13:45 129 H 14 107/74 04/12/22 13:35 123 H 107/74 04/12/22 13:30 126 H 14 116/71 04/12/22 13:15 126 H 13 107/74 04/12/22 13:01 126 H 15 107/74 04/12/22 12:45 124 H 14 115/71 04/12/22 12:30 121 H 15 115/71 04/12/22 12:24 111/66 04/12/22 12:15 126 H 14 111/66 04/12/22 12:00 99 F 122 H 94 H 14 111/66 Pulse Ox 04/13/22 10:15 96 04/13/22 10:00 97 04/13/22 09:45 95 04/13/22 09:30 95 04/13/22 09:15 95 04/13/22 09:00 95 04/13/22 08:45 97 04/13/22 08:34 04/13/22 08:30 98 04/13/22 08:15 96 04/13/22 08:00 96 04/13/22 07:45 96 04/13/22 07:30 96 04/13/22 07:15 94 04/13/22 07:00 94 04/13/22 06:45 94 04/13/22 06:30 92 04/13/22 06:15 92 04/13/22 06:00 94 04/13/22 05:45 93 04/13/22 05:30 94 04/13/22 05:15 93 04/13/22 05:00 95 04/13/22 04:45 98 04/13/22 04:30 96 04/13/22 04:15 95 04/13/22 04:10 98 04/13/22 04:00 95 04/13/22 03:45 95 04/13/22 03:30 94 04/13/22 03:15 93 04/13/22 03:06 96 04/13/22 03:00 94 04/13/22 02:45 93 04/13/22 02:30 93 04/13/22 02:15 93 04/13/22 02:01 93 04/13/22 01:45 94 04/13/22 01:30 95 04/13/22 01:15 97 04/13/22 01:00 97 04/13/22 00:45 97 04/13/22 00:30 99 04/13/22 00:16 04/13/22 00:15 98 04/13/22 00:07 97 04/13/22 00:00 95 04/12/22 23:45 96 04/12/22 23:31 94 04/12/22 23:30 95 04/12/22 23:15 93 04/12/22 23:08 96 04/12/22 23:00 94 04/12/22 22:45 92 04/12/22 22:30 94 04/12/22 22:15 95 04/12/22 22:00 94 04/12/22 21:45 95 04/12/22 21:30 95 04/12/22 21:15 96 04/12/22 21:00 96 04/12/22 20:45 98 04/12/22 20:30 97 04/12/22 20:15 96 04/12/22 20:09 04/12/22 20:00 95 04/12/22 19:45 95 04/12/22 19:30 95 04/12/22 19:15 95 04/12/22 19:00 95 04/12/22 18:45 96 04/12/22 18:30 96 04/12/22 18:15 95 04/12/22 18:00 94 04/12/22 17:45 94 04/12/22 17:30 94 04/12/22 17:15 95 04/12/22 17:09 04/12/22 17:00 96 04/12/22 16:45 97 04/12/22 16:36 04/12/22 16:31 93 04/12/22 16:30 92 04/12/22 16:15 92 04/12/22 16:00 92 04/12/22 15:45 91 04/12/22 15:30 97 04/12/22 15:15 93 04/12/22 15:00 81 L 04/12/22 14:45 95 04/12/22 14:30 94 04/12/22 14:15 94 04/12/22 14:00 91 04/12/22 13:45 89 04/12/22 13:35 123 H 04/12/22 13:30 97 04/12/22 13:15 91 04/12/22 13:01 94 04/12/22 12:45 96 04/12/22 12:30 96 04/12/22 12:24 04/12/22 12:15 100 04/12/22 12:00 99 - Physical Examination General: Other (Intubated on mechanical ventilator) HEENT: Positive: PERRL, Normocephaly, Other (ET-tube in place) Neck: Positive: neck supple, trachea midline (intubated). Negative: JVD/HJR Cardiac: Positive: Reg Rate and Rhythm Lungs: Positive: Decreased Breath Sounds Neuro: Positive: Other (Sedated, on the vent) Abdomen: Positive: Soft Skin: Positive: Clear Extremities: Present: Other (TR.EDEMA). Absent: edema (NO) - Labs and Meds Coagulation 04/13/22 Range/Units 04:30 PT 13.6 (12.2-14.9) Sec. INR 0.94 (0.87-1.13) CBC 04/13/22 Range/Units 04:30 WBC 14.1 H (4.5-11.0) K/mm3 RBC 2.66 L (3.65-5.03) M/mm3 Hgb 8.4 L (11.8-15.2) gm/dl Hct 25.5 L (35.5-45.6) % Plt Count 245 (140-440) K/mm3 Comprehensive Metabolic Panel 04/13/22 Range/Units 04:30 Sodium 139 (137-145) mmol/L Potassium 4.5 (3.6-5.0) mmol/L Chloride 93.9 L (98-107) mmol/L Carbon Dioxide 39 H (22-30) mmol/L BUN 16 (9-20) mg/dL Creatinine < 0.2 L (0.8-1.3) mg/dL Glucose 95 (75-100) mg/dL Calcium 8.5 (8.4-10.2) mg/dL - Allied health notes Allied health notes reviewed: nursing
--- NOTE | 2022-04-13 12:18 | Electrocardiograph Report ---
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
--- NOTE | 2022-04-13 13:48 | Progress Note ---
Assessment and Plan - Patient Problems (1) Respiratory failure Current Visit: Yes Status: Acute Plan to address problem: 1) Postpone trach & Peg until tomorrow 2) NPO after MN 3) Resume OG feedings now Subjective Date of service: 04/13/22 Patient Reports: Positive: no new complaints (Bumped by Dr. Estes for bleeding post-op pt.) Objective Vital Signs - 12hr 04/13/22 04/13/22 04/13/22 02:01 02:15 02:30 Temperature Pulse Rate 124 H 122 H 120 H Pulse Rate [ Anterior Bilateral Throughout] Pulse Rate [ From Monitor] Respiratory 18 16 14 Rate Respiratory Rate [Anterior Bilateral Throughout] Blood Pressure 136/101 136/101 134/74 O2 Sat by Pulse 93 93 93 Oximetry 04/13/22 04/13/22 04/13/22 02:45 03:00 03:06 Temperature Pulse Rate 118 H 115 H 120 H Pulse Rate [ Anterior Bilateral Throughout] Pulse Rate [ 118 H From Monitor] Respiratory 15 18 14 Rate Respiratory Rate [Anterior Bilateral Throughout] Blood Pressure 134/74 128/83 O2 Sat by Pulse 93 94 96 Oximetry 04/13/22 04/13/22 04/13/22 03:15 03:30 03:45 Temperature Pulse Rate 119 H 116 H 118 H Pulse Rate [ Anterior Bilateral Throughout] Pulse Rate [ From Monitor] Respiratory 15 19 19 Rate Respiratory Rate [Anterior Bilateral Throughout] Blood Pressure 128/83 123/82 123/82 O2 Sat by Pulse 93 94 95 Oximetry 04/13/22 04/13/22 04/13/22 04:00 04:10 04:15 Temperature Pulse Rate 115 H 108 H 113 H Pulse Rate [ Anterior Bilateral Throughout] Pulse Rate [ From Monitor] Respiratory 22 2 L 17 Rate Respiratory Rate [Anterior Bilateral Throughout] Blood Pressure 117/84 117/84 117/84 O2 Sat by Pulse 95 98 95 Oximetry 04/13/22 04/13/22 04/13/22 04:30 04:45 05:00 Temperature Pulse Rate 113 H 101 H 119 H Pulse Rate [ Anterior Bilateral Throughout] Pulse Rate [ From Monitor] Respiratory 14 14 19 Rate Respiratory Rate [Anterior Bilateral Throughout] Blood Pressure 126/81 126/81 129/82 O2 Sat by Pulse 96 98 95 Oximetry 04/13/22 04/13/22 04/13/22 05:15 05:30 05:45 Temperature Pulse Rate 127 H 123 H 122 H Pulse Rate [ Anterior Bilateral Throughout] Pulse Rate [ From Monitor] Respiratory 25 H 16 15 Rate Respiratory Rate [Anterior Bilateral Throughout] Blood Pressure 129/82 123/80 123/80 O2 Sat by Pulse 93 94 93 Oximetry 04/13/22 04/13/22 04/13/22 06:00 06:15 06:30 Temperature Pulse Rate 98 H 121 H 118 H Pulse Rate [ Anterior Bilateral Throughout] Pulse Rate [ From Monitor] Respiratory 16 17 19 Rate Respiratory Rate [Anterior Bilateral Throughout] Blood Pressure 114/67 123/80 126/81 O2 Sat by Pulse 94 92 92 Oximetry 04/13/22 04/13/22 04/13/22 06:45 07:00 07:15 Temperature Pulse Rate 116 H 110 H 119 H Pulse Rate [ Anterior Bilateral Throughout] Pulse Rate [ From Monitor] Respiratory 16 18 22 Rate Respiratory Rate [Anterior Bilateral Throughout] Blood Pressure 114/67 131/83 126/81 O2 Sat by Pulse 94 94 94 Oximetry 04/13/22 04/13/22 04/13/22 07:30 07:45 08:00 Temperature 98 F Pulse Rate 114 H 114 H 109 H Pulse Rate [ Anterior Bilateral Throughout] Pulse Rate [ 109 H From Monitor] Respiratory 16 17 17 Rate Respiratory Rate [Anterior Bilateral Throughout] Blood Pressure 132/86 132/86 113/73 O2 Sat by Pulse 96 96 96 Oximetry 04/13/22 04/13/22 04/13/22 08:15 08:30 08:34 Temperature Pulse Rate 107 H 113 H Pulse Rate [ 110 H Anterior Bilateral Throughout] Pulse Rate [ From Monitor] Respiratory 16 16 Rate Respiratory 18 Rate [Anterior Bilateral Throughout] Blood Pressure 131/87 113/73 O2 Sat by Pulse 96 98 Oximetry 04/13/22 04/13/22 04/13/22 08:45 09:00 09:15 Temperature Pulse Rate 107 H 114 H 111 H Pulse Rate [ Anterior Bilateral Throughout] Pulse Rate [ From Monitor] Respiratory 19 17 21 Rate Respiratory Rate [Anterior Bilateral Throughout] Blood Pressure 113/73 129/82 131/87 O2 Sat by Pulse 97 95 95 Oximetry 04/13/22 04/13/22 04/13/22 09:30 09:45 10:00 Temperature Pulse Rate 113 H 108 H 109 H Pulse Rate [ Anterior Bilateral Throughout] Pulse Rate [ From Monitor] Respiratory 18 19 16 Rate Respiratory Rate [Anterior Bilateral Throughout] Blood Pressure 137/90 129/82 123/82 O2 Sat by Pulse 95 95 97 Oximetry 04/13/22 04/13/22 04/13/22 10:15 10:30 10:45 Temperature Pulse Rate 109 H 105 H 105 H Pulse Rate [ Anterior Bilateral Throughout] Pulse Rate [ From Monitor] Respiratory 19 17 16 Rate Respiratory Rate [Anterior Bilateral Throughout] Blood Pressure 123/82 125/77 125/77 O2 Sat by Pulse 96 97 97 Oximetry 04/13/22 04/13/22 04/13/22 11:00 11:15 11:30 Temperature Pulse Rate 106 H 112 H 112 H Pulse Rate [ Anterior Bilateral Throughout] Pulse Rate [ From Monitor] Respiratory 18 17 18 Rate Respiratory Rate [Anterior Bilateral Throughout] Blood Pressure 136/82 136/82 123/88 O2 Sat by Pulse 97 98 97 Oximetry 04/13/22 04/13/22 04/13/22 11:39 11:45 12:00 Temperature 98.2 F Pulse Rate 106 H 110 H 109 H Pulse Rate [ Anterior Bilateral Throughout] Pulse Rate [ 109 H From Monitor] Respiratory 17 14 Rate Respiratory Rate [Anterior Bilateral Throughout] Blood Pressure 123/88 123/88 133/91 O2 Sat by Pulse 97 97 96 Oximetry 04/13/22 12:36 Temperature Pulse Rate 97 H Pulse Rate [ Anterior Bilateral Throughout] Pulse Rate [ From Monitor] Respiratory Rate Respiratory Rate [Anterior Bilateral Throughout] Blood Pressure O2 Sat by Pulse Oximetry - Labs 04/13/22 04:30 04/13/22 04:30 Diabetes panel 04/13/22 Range/Units 04:30 Sodium 139 (137-145) mmol/L Potassium 4.5 (3.6-5.0) mmol/L Chloride 93.9 L (98-107) mmol/L Carbon Dioxide 39 H (22-30) mmol/L BUN 16 (9-20) mg/dL Creatinine < 0.2 L (0.8-1.3) mg/dL Glucose 95 (75-100) mg/dL Calcium 8.5 (8.4-10.2) mg/dL Calcium panel 04/13/22 Range/Units 04:30 Calcium 8.5 (8.4-10.2) mg/dL Phosphorus 1.90 L (2.5-4.5) mg/dL Pituitary panel 04/13/22 Range/Units 04:30 Sodium 139 (137-145) mmol/L Potassium 4.5 (3.6-5.0) mmol/L Chloride 93.9 L (98-107) mmol/L Carbon Dioxide 39 H (22-30) mmol/L BUN 16 (9-20) mg/dL Creatinine < 0.2 L (0.8-1.3) mg/dL Glucose 95 (75-100) mg/dL Calcium 8.5 (8.4-10.2) mg/dL Adrenal panel 04/13/22 Range/Units 04:30 Sodium 139 (137-145) mmol/L Potassium 4.5 (3.6-5.0) mmol/L Chloride 93.9 L (98-107) mmol/L Carbon Dioxide 39 H (22-30) mmol/L BUN 16 (9-20) mg/dL Creatinine < 0.2 L (0.8-1.3) mg/dL Glucose 95 (75-100) mg/dL Calcium 8.5 (8.4-10.2) mg/dL
--- NOTE | 2022-04-13 14:03 | Progress Note ---
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 Secondary to pneumonia. #Hospital-acquired pneumonia. Was recently seen at [facility], was initially discharged to home hospice, as such was not given antibiotics. Cultures here with Pseudomonas, Enterobacter. Complete 10 days of cefepime. #Acute hypoxic respiratory failure: Currently on the vent. #ALS: Was on home hospice. #Bacillus bacteremia: likely contaminant. Recs: -Complete 10 days of cefepime as planned -Awaiting trach, PEG -Overall poor prognosis given his underlying progressive ALS Carmen German MD, FACP, [facility] ([facility]) O: [phone] F: [phone] C: [phone] Subjective Date of service: 04/13/22 Principal diagnosis: Ac and ch hypercapnic and hypoxemic Resp Failure; ALS; HCAP; Sepsis; NSTEMI Interval history: Low-grade temperature of 100.2 F. is at bedside. Remains on the vent. Objective - Exam Narrative Exam: Physical Exam: Constitutional: sedated, intubated, on the vent Head, Ears, Nose: Normocephalic, atraumatic. External ears, nose normal Eyes: Conjunctivae/corneas clear. No icterus. No ptosis. Neck: intubated Oral: intubated Cardiovascular: S1, S2 + Respiratory: AE fair bilaterally and equal GI: Soft, bowel sounds + Musculoskeletal: No pedal edema, no cyanosis. Skin: No rash or abscess Hem/Lymphatic: No palpable cervical or supraclavicular nodes. No lymphangitis Psych: no agitation Neurological: sedated, intubated, on the vent, exam limited - Constitutional Vitals: Vital Signs Temp Pulse Resp BP Pulse Ox 98.2 F 97 H 14 133/91 96 04/13/22 12:00 04/13/22 12:36 04/13/22 12:00 04/13/22 12:00 04/13/22 12:00 Temperature -Last 24 Hours Temperature 98.2 F Temperature 98 F Temperature 99.6 F Temperature 100.2 F Temperature 98.2 F - Labs CBC & Chem 7: 04/13/22 04:30 04/13/22 04:30 Labs: Abnormal lab results 04/12/22 04/12/22 04/13/22 Range/Units 17:03 23:39 04:30 WBC 14.1 H (4.5-11.0) K/mm3 RBC 2.66 L (3.65-5.03) M/mm3 Hgb 8.4 L (11.8-15.2) gm/dl Hct 25.5 L (35.5-45.6) % MCV 96 H (84-94) fl Chloride (98-107) mmol/L Carbon Dioxide (22-30) mmol/L Creatinine (0.8-1.3) mg/dL POC Glucose 106 H 107 H (70-105) mg/dL Phosphorus (2.5-4.5) mg/dL 04/13/22 Range/Units 04:30 WBC (4.5-11.0) K/mm3 RBC (3.65-5.03) M/mm3 Hgb (11.8-15.2) gm/dl Hct (35.5-45.6) % MCV (84-94) fl Chloride 93.9 L (98-107) mmol/L Carbon Dioxide 39 H (22-30) mmol/L Creatinine < 0.2 L (0.8-1.3) mg/dL POC Glucose (70-105) mg/dL Phosphorus 1.90 L (2.5-4.5) mg/dL
[2022-04-13] MEDS: ACETYLCYSTEINE 20% SOLN 4ML (200 MG/ML) IH SCH ×2 (20:56→20:57)
[2022-04-14] MEDS: INSULIN REGULAR, HUMAN 100 UNITS/1 ML SUB-Q SCH ×4 (00:15→17:47)
[2022-04-14] MEDS: CEFEPIME/NS 2 GM/100 ML 2 GM/100 ML BAG IV SCH ×2 (00:16→12:07)
[2022-04-14] MEDS: HEPARIN 5,000 UNIT/1 ML VIAL SUB-Q SCH ×3 (05:06→22:36)
[2022-04-14] MEDS: METOPROLOL TARTRATE 25 MG TAB FEEDTUBE SCH ×3 (05:07→17:47)
[2022-04-14] MEDS: QUEtiapine 25 MG TAB PO SCH ×3 (05:07→22:23)
[2022-04-14] MEDS: NITROGLYCERIN 0.2 MG PATCH 24HR TD SCH (05:07)
[2022-04-14] MEDS: fentaNYL DRIP Premix 2,000 MCG/100 ML BAG IV SCH ×2 (05:07→14:03)
[2022-04-14] MEDS: fentaNYL 100 MCG/2 ML INJ IV PRN ×3 (05:18→22:36)
[2022-04-14 05:32] LABS: Hematocrit 28.8 % (35.5-45.6); Hemoglobin 9.3 gm/dl (11.8-15.2); Mean Corpuscular HGB Conc 32 % (32-34); Mean Corpuscular Volume 95 fl (84-94); Platelet Count 342 K/mm3 (140-440); Red Blood Count 3.02 M/mm3 (3.65-5.03); Red Cell Distribution Width 13.7 % (13.2-15.2)
[2022-04-14 05:35] LABS: Blood Urea Nitrogen 17 mg/dL (9-20); Calcium 8.6 mg/dL (8.4-10.2); Hemolysis Index 5
[2022-04-14 05:37] LABS: BUN/Creatinine Ratio 85
[2022-04-14] MEDS: ALBUTEROL 2.5 MG/3 ML NEBU IH SCH ×3 (07:23→23:24)
[2022-04-14 09:21] LABS: ABG Base Excess 17.2 mmol/L (-2.0-3.0); ABG HCO3 44.5 mmol/L (20.0-26.0); ABG Methemoglobin 0.3 % (0.0-1.5); ABG Oxygen Saturation 96.4 % (95.0-99.0); ABG PCO2 76.5 mm Hg; ABG PH 7.383 pH Units (7.350-7.450); ABG PO2 66.9 mm Hg (80.0-90.0)
[2022-04-14] MEDS: DOCUSATE SODIUM 100 MG/10 ML ORAL LIQD PO SCH ×2 (10:03→22:20)
[2022-04-14] MEDS: SENNOSIDES ORAL LIQD 8.8 MG/5 ML ORAL LIQD PO SCH ×2 (10:03→22:20)
[2022-04-14] MEDS: FAMOTIDINE 20 MG TAB FEEDTUBE SCH ×2 (10:03→22:23)
[2022-04-14] MEDS: POLYETHYLENE GLYCOL 3350 17 GM POWDER PO SCH (10:03)
[2022-04-14] MEDS: ACETYLCYSTEINE 10% 100 MG/1 ML *FOR INHALATION USE INHALATION SCH ×3 (10:56→23:24)
--- NOTE | 2022-04-14 11:54 | Progress Note ---
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 Protein calorie malnutrition Acute Bronchopneumonia HCAP Hypotension NSTEMI Hypernatremia Acute Metabolic Encephalopathy H/o Amyotrophic Lateral Sclerosis Nonverbal at Baseline Thrombocytopenia Protein Caloric Malnutrition Constipation (suspect transient and persistent atelectasis responsible for desaturations) - trach and PEG later today (postponed yesterday) - continue mucomyst nebs for thick tenacious secretions - continue scheduled CPT - keep peep at 10 for alveolar recruitment - continue Seroquel for anxiolysis / delirium - continue care as below otherwise; - continue bronchodilators with pulmonary hygiene per RT - Daily SAT and SBT assessment as tolerated - continue to wean supplemental oxygen for target O2 sat's > 90% acutely - VAP bundle addressed - continue lung protective strategies - wean per pulmonary driven protocols otherwise - continue accuchecks with glycemic control per SSI (While critically ill target blood glucose of 140-180 mg/dL; avoid hypoglycemia) - sedation prn for target RASS 0 to -1 - avoid nephrotoxins, renally dose all medications - continue to avoid benzodiazepine's, reduce the possibility of delirium - AB's per ID rec's - prn analgesia per CPOT score - Maintenance of sleep-wake cycle, avoid delirium - continue enteral nutritional support at goal rate as tolerated - G.I. & VTE prophylaxis - PT/OT/ROM exercises - continue mobility protocols for pressure ulcer prophylaxis - Monitor hemodynamics closely - continue other care per attending / other consultants - discharge planning ongoing concurrently COVID SPECIFIC INTERVENTIONS - test pending .... Re-evaluate in am & prn CONDITION: CRITICAL PROGNOSIS: GUARDED CODE STATUS: FULL CODE The high probability of a clinically significant, sudden or life-threatening deterioration of the [respiratory, cardiovascular & neurologic] system(s) required my full and direct attention, intervention and personal management. The aggregate critical care time was [31] minutes without overlap. Time includes spent on; [x] Data Review and interpretation [x] Patient assessment and monitoring of vital signs [x] Documentation [x] Medication orders and management Subjective Date of service: 04/14/22 Principal diagnosis: Ac and ch hypercapnic and hypoxemic Resp Failure; ALS; HCAP; Sepsis; NSTEMI Interval history: Patient is seen today for: Acute and chronic hypercapnic and hypoxemic Respiratory Failure; ALS; HCAP; Sepsis; NSTEMI; AMS; Hypernatremia; Thrombocytopenia; Protein Caloric Malnutrition; Constipation Seen and examined at bedside; 24hour events reviewed; nursing and respiratory care staff consulted; no adverse overnight events reported to me; resting peacefully in bed; remains on MVS; still on MVS; awaiting tracheostomy; no N/V/F/C Objective Vital Signs - 12hr 04/13/22 04/14/22 04/14/22 23:58 00:00 00:15 Temperature 99.3 F Pulse Rate 117 H 117 H 125 H Pulse Rate [ 123 H Anterior Bilateral Throughout] Pulse Rate [ From Monitor] Respiratory 15 14 Rate Respiratory 14 Rate [Anterior Bilateral Throughout] Blood Pressure 127/90 127/90 127/90 O2 Sat by Pulse 94 94 95 Oximetry 04/14/22 04/14/22 04/14/22 00:30 00:45 01:00 Temperature Pulse Rate 118 H 117 H 117 H Pulse Rate [ Anterior Bilateral Throughout] Pulse Rate [ From Monitor] Respiratory 14 14 14 Rate Respiratory Rate [Anterior Bilateral Throughout] Blood Pressure 124/85 124/85 125/86 O2 Sat by Pulse 94 95 88 Oximetry 04/14/22 04/14/22 04/14/22 01:15 01:30 01:45 Temperature Pulse Rate 117 H 116 H 118 H Pulse Rate [ Anterior Bilateral Throughout] Pulse Rate [ From Monitor] Respiratory 15 14 15 Rate Respiratory Rate [Anterior Bilateral Throughout] Blood Pressure 125/86 136/88 136/88 O2 Sat by Pulse 96 95 92 Oximetry 04/14/22 04/14/22 04/14/22 02:00 02:15 02:30 Temperature Pulse Rate 117 H 116 H 130 H Pulse Rate [ Anterior Bilateral Throughout] Pulse Rate [ From Monitor] Respiratory 14 14 14 Rate Respiratory Rate [Anterior Bilateral Throughout] Blood Pressure 131/88 136/88 142/93 O2 Sat by Pulse 93 95 92 Oximetry 04/14/22 04/14/22 04/14/22 02:45 03:00 03:01 Temperature Pulse Rate 116 H 115 H Pulse Rate [ Anterior Bilateral Throughout] Pulse Rate [ 118 H From Monitor] Respiratory 14 15 14 Rate Respiratory Rate [Anterior Bilateral Throughout] Blood Pressure 142/93 132/86 O2 Sat by Pulse 91 94 96 Oximetry 04/14/22 04/14/22 04/14/22 03:03 03:15 03:30 Temperature Pulse Rate 116 H 112 H 114 H Pulse Rate [ Anterior Bilateral Throughout] Pulse Rate [ From Monitor] Respiratory 14 14 Rate Respiratory Rate [Anterior Bilateral Throughout] Blood Pressure 132/86 135/90 O2 Sat by Pulse 92 95 Oximetry 04/14/22 04/14/22 04/14/22 03:45 04:00 04:15 Temperature 99.4 F Pulse Rate 114 H 114 H 112 H Pulse Rate [ Anterior Bilateral Throughout] Pulse Rate [ From Monitor] Respiratory 14 14 14 Rate Respiratory Rate [Anterior Bilateral Throughout] Blood Pressure 135/90 131/86 131/86 O2 Sat by Pulse 92 92 95 Oximetry 04/14/22 04/14/22 04/14/22 04:21 04:30 04:45 Temperature Pulse Rate 123 H 110 H 111 H Pulse Rate [ Anterior Bilateral Throughout] Pulse Rate [ From Monitor] Respiratory 14 14 Rate Respiratory Rate [Anterior Bilateral Throughout] Blood Pressure 131/86 138/89 138/89 O2 Sat by Pulse 96 98 96 Oximetry 04/14/22 04/14/22 04/14/22 05:00 05:15 05:30 Temperature Pulse Rate 118 H 117 H 98 H Pulse Rate [ Anterior Bilateral Throughout] Pulse Rate [ From Monitor] Respiratory 14 14 14 Rate Respiratory Rate [Anterior Bilateral Throughout] Blood Pressure 142/93 142/93 120/77 O2 Sat by Pulse 97 87 Oximetry 04/14/22 04/14/22 04/14/22 05:45 06:00 06:15 Temperature Pulse Rate 91 H 105 H 90 Pulse Rate [ Anterior Bilateral Throughout] Pulse Rate [ From Monitor] Respiratory 14 14 14 Rate Respiratory Rate [Anterior Bilateral Throughout] Blood Pressure 120/77 123/74 123/74 O2 Sat by Pulse 89 90 90 Oximetry 04/14/22 04/14/22 04/14/22 06:30 06:46 07:00 Temperature Pulse Rate 129 H 106 H 107 H Pulse Rate [ Anterior Bilateral Throughout] Pulse Rate [ From Monitor] Respiratory 14 14 14 Rate Respiratory Rate [Anterior Bilateral Throughout] Blood Pressure 122/83 122/83 111/70 O2 Sat by Pulse 90 92 92 Oximetry 04/14/22 04/14/22 04/14/22 07:11 07:15 07:23 Temperature Pulse Rate 105 H 104 H Pulse Rate [ 96 H Anterior Bilateral Throughout] Pulse Rate [ From Monitor] Respiratory 14 Rate Respiratory 14 Rate [Anterior Bilateral Throughout] Blood Pressure 123/74 111/70 O2 Sat by Pulse 92 93 Oximetry 04/14/22 04/14/22 04/14/22 07:30 07:45 08:00 Temperature 99.3 F Pulse Rate 104 H 106 H 98 H Pulse Rate [ Anterior Bilateral Throughout] Pulse Rate [ 98 H From Monitor] Respiratory 14 14 14 Rate Respiratory Rate [Anterior Bilateral Throughout] Blood Pressure 118/74 111/70 115/71 O2 Sat by Pulse 93 93 93 Oximetry 04/14/22 04/14/22 04/14/22 08:15 08:30 08:45 Temperature Pulse Rate 90 88 102 H Pulse Rate [ Anterior Bilateral Throughout] Pulse Rate [ From Monitor] Respiratory 14 14 14 Rate Respiratory Rate [Anterior Bilateral Throughout] Blood Pressure 115/71 110/71 115/71 O2 Sat by Pulse 93 91 93 Oximetry 04/14/22 04/14/22 04/14/22 09:00 09:15 09:30 Temperature Pulse Rate 110 H 122 H 127 H Pulse Rate [ Anterior Bilateral Throughout] Pulse Rate [ From Monitor] Respiratory 14 14 16 Rate Respiratory Rate [Anterior Bilateral Throughout] Blood Pressure 126/82 126/82 132/100 O2 Sat by Pulse 95 95 95 Oximetry 04/14/22 04/14/22 04/14/22 09:45 10:00 10:15 Temperature Pulse Rate 132 H 129 H 128 H Pulse Rate [ Anterior Bilateral Throughout] Pulse Rate [ From Monitor] Respiratory 14 14 14 Rate Respiratory Rate [Anterior Bilateral Throughout] Blood Pressure 132/100 137/87 137/87 O2 Sat by Pulse 94 93 93 Oximetry 04/14/22 04/14/22 04/14/22 10:30 10:45 11:00 Temperature Pulse Rate 117 H 119 H 114 H Pulse Rate [ Anterior Bilateral Throughout] Pulse Rate [ From Monitor] Respiratory 14 14 14 Rate Respiratory Rate [Anterior Bilateral Throughout] Blood Pressure 121/78 121/78 116/70 O2 Sat by Pulse 92 93 94 Oximetry 04/14/22 04/14/22 11:45 11:47 Temperature 98.3 F Pulse Rate 114 H Pulse Rate [ Anterior Bilateral Throughout] Pulse Rate [ From Monitor] Respiratory Rate Respiratory Rate [Anterior Bilateral Throughout] Blood Pressure 116/70 O2 Sat by Pulse 94 Oximetry Constitutional: alert, appears uncomfortable, other (orally intubated in bed with mildly increased respiratory effort at rest) Eyes: non-icteric ENT: oropharynx moist, other (ETT 24 cm [place]) Neck: supple, no lymphadenopathy, no JVD, other (RIJ CVL) Effort: mildly labored Ascultation: Bilateral: diminished breath sounds (R>L base), rhonchi (basilar predominant) Percussion: Bilateral: not dull Cardiovascular: regular rate and rhythm, other (S1,S2) Gastrointestinal: normoactive bowel sounds, soft, non-tender, non-distended Integumentary: normal Extremities: no cyanosis, no edema, pink and warm, pulses normal Neurologic: pupils equal and round, other (functional quadriplegia) Psychiatric: anxious, other CBC and BMP: 04/22/22 05:03 04/22/22 05:03 ABG, PT/INR, D-dimer: ABG ABG pH 7.383 pH Units (7.350-7.450) 04/14/22 09:10 ABG pCO2 76.5 mm Hg 04/14/22 09:10 ABG pO2 66.9 mm Hg (80.0-90.0) L 04/14/22 09:10 ABG O2 Saturation 96.4 % (95.0-99.0) 04/14/22 09:10 PT/INR, D-dimer PT 13.6 Sec. (12.2-14.9) 04/13/22 04:30 INR 0.94 (0.87-1.13) 04/13/22 04:30 Abnormal lab findings: Abnormal Labs 04/02/22 04/02/22 04/02/22 19:39 19:39 19:39 WBC 14.3 H RBC Hgb Hct MCV 96 H Plt Count 104 L Lymph % (Auto) [place] % (Auto) Lymph # (Auto) [place] # (Auto) Seg Neutrophils % Seg Neuts % (Manual) 94.0 H Lymphocytes % (Manual) 1.0 L Seg Neutrophils # Seg Neutrophils # Man 13.4 H Lymphocytes # (Manual) 0.1 L PT 15.9 H INR 1.14 H ABG pH ABG pO2 ABG HCO3 ABG O2 Saturation ABG Base Excess ABG Hemoglobin Oxyhemoglobin Sodium 151 H Potassium Chloride Carbon Dioxide Creatinine 0.5 L Glucose POC Glucose Calcium 8.2 L Phosphorus Magnesium 1.60 L Total Creatine Kinase CK-MB (CK-2) Rel Index Troponin T 0.048 H C-Reactive Protein Total Protein 4.6 L Albumin 2.7 L LDL Cholesterol Direct 27 L Urine WBC (Auto) 04/02/22 04/03/22 04/03/22 19:42 05:14 06:30 WBC RBC Hgb Hct MCV Plt Count Lymph % (Auto) [place] % (Auto) Lymph # (Auto) [place] # (Auto) Seg Neutrophils % Seg Neuts % (Manual) Lymphocytes % (Manual) Seg Neutrophils # Seg Neutrophils # Man Lymphocytes # (Manual) PT INR ABG pH 7.471 H 7.496 H ABG pO2 47.8 L 91.0 H ABG HCO3 30.6 H ABG O2 Saturation 94.4 L ABG Base Excess 6.2 H ABG Hemoglobin 11.0 L 12.8 L Oxyhemoglobin 93.1 L Sodium 149 H Potassium 3.4 L Chloride Carbon Dioxide Creatinine 0.4 L Glucose POC Glucose Calcium Phosphorus Magnesium Total Creatine Kinase CK-MB (CK-2) Rel Index Troponin T C-Reactive Protein Total Protein Albumin LDL Cholesterol Direct Urine WBC (Auto) 04/04/22 04/04/22 04/04/22 04:18 04:18 05:50 WBC 11.8 H RBC Hgb Hct MCV Plt Count 132 L Lymph % (Auto) [place] % (Auto) Lymph # (Auto) [place] # (Auto) Seg Neutrophils % Seg Neuts % (Manual) Lymphocytes % (Manual) Seg Neutrophils # Seg Neutrophils # Man Lymphocytes # (Manual) PT INR ABG pH 7.517 H ABG pO2 115.5 H ABG HCO3 29.9 H ABG O2 Saturation ABG Base Excess 6.7 H ABG Hemoglobin 12.3 L Oxyhemoglobin Sodium Potassium 3.5 L Chloride Carbon Dioxide 31 H Creatinine 0.3 L Glucose 153 H POC Glucose Calcium Phosphorus 1.40 L Magnesium 1.50 L Total Creatine Kinase CK-MB (CK-2) Rel Index Troponin T C-Reactive Protein 31.60 H Total Protein Albumin LDL Cholesterol Direct Urine WBC (Auto) 04/05/22 04/05/22 04/05/22 02:50 05:25 11:28 WBC RBC Hgb Hct MCV Plt Count Lymph % (Auto) [place] % (Auto) Lymph # (Auto) [place] # (Auto) Seg Neutrophils % Seg Neuts % (Manual) Lymphocytes % (Manual) Seg Neutrophils # Seg Neutrophils # Man Lymphocytes # (Manual) PT INR ABG pH 7.455 H ABG pO2 50.7 L ABG HCO3 30.5 H ABG O2 Saturation 89.4 L ABG Base Excess 5.9 H ABG Hemoglobin 11.8 L Oxyhemoglobin 88.2 L Sodium Potassium Chloride Carbon Dioxide 32 H Creatinine 0.2 L Glucose 110 H POC Glucose 124 H Calcium 7.9 L Phosphorus Magnesium Total Creatine Kinase CK-MB (CK-2) Rel Index Troponin T C-Reactive Protein Total Protein Albumin LDL Cholesterol Direct Urine WBC (Auto) 04/05/22 04/05/22 04/06/22 17:45 Unknown 04:00 WBC RBC 3.55 L Hgb 11.1 L 11.5 L Hct 33.2 L 35.1 L MCV Plt Count 113 L 114 L Lymph % (Auto) [place] % (Auto) Lymph # (Auto) [place] # (Auto) Seg Neutrophils % Seg Neuts % (Manual) Lymphocytes % (Manual) Seg Neutrophils # Seg Neutrophils # Man Lymphocytes # (Manual) PT INR ABG pH ABG pO2 ABG HCO3 ABG O2 Saturation ABG Base Excess ABG Hemoglobin Oxyhemoglobin Sodium Potassium Chloride Carbon Dioxide Creatinine Glucose POC Glucose Calcium Phosphorus Magnesium Total Creatine Kinase CK-MB (CK-2) Rel Index Troponin T C-Reactive Protein Total Protein Albumin LDL Cholesterol Direct Urine WBC (Auto) 8.0 H 04/06/22 04/06/22 04/07/22 04:00 08:30 00:04 WBC RBC Hgb Hct MCV Plt Count Lymph % (Auto) [place] % (Auto) Lymph # (Auto) [place] # (Auto) Seg Neutrophils % Seg Neuts % (Manual) Lymphocytes % (Manual) Seg Neutrophils # Seg Neutrophils # Man Lymphocytes # (Manual) PT INR ABG pH ABG pO2 60.8 L ABG HCO3 30.5 H ABG O2 Saturation 93.3 L ABG Base Excess 4.9 H ABG Hemoglobin 12.4 L Oxyhemoglobin 92.1 L Sodium Potassium 3.0 L Chloride Carbon Dioxide Creatinine < 0.2 L Glucose 130 H POC Glucose 117 H Calcium 8.1 L Phosphorus Magnesium Total Creatine Kinase CK-MB (CK-2) Rel Index Troponin T C-Reactive Protein Total Protein Albumin LDL Cholesterol Direct Urine WBC (Auto) 04/07/22 04/07/22 04/07/22 03:51 03:51 03:51 WBC 14.6 H RBC 3.57 L Hgb 11.1 L Hct 33.2 L MCV Plt Count 118 L Lymph % (Auto) 4.3 L [place] % (Auto) 8.8 H Lymph # (Auto) 0.6 L [place] # (Auto) 1.3 H Seg Neutrophils % 86.6 H Seg Neuts % (Manual) Lymphocytes % (Manual) Seg Neutrophils # 12.7 H Seg Neutrophils # Man Lymphocytes # (Manual) PT 15.2 H INR ABG pH ABG pO2 ABG HCO3 ABG O2 Saturation ABG Base Excess ABG Hemoglobin Oxyhemoglobin Sodium 133 L Potassium Chloride 96.0 L Carbon Dioxide 31 H Creatinine 0.2 L Glucose 130 H POC Glucose Calcium 8.0 L Phosphorus Magnesium Total Creatine Kinase CK-MB (CK-2) Rel Index Troponin T C-Reactive Protein Total Protein Albumin LDL Cholesterol Direct Urine WBC (Auto) 04/07/22 04/07/22 04/08/22 04:25 09:10 04:49 WBC 16.1 H RBC 3.54 L Hgb 10.9 L Hct 33.3 L MCV Plt Count Lymph % (Auto) [place] % (Auto) Lymph # (Auto) [place] # (Auto) Seg Neutrophils % Seg Neuts % (Manual) Lymphocytes % (Manual) Seg Neutrophils # Seg Neutrophils # Man Lymphocytes # (Manual) PT INR ABG pH ABG pO2 71.0 L 63.4 L ABG HCO3 31.5 H 40.0 H ABG O2 Saturation 94.9 L ABG Base Excess 5.9 H 13.6 H ABG Hemoglobin 11.3 L 9.0 L Oxyhemoglobin 93.6 L Sodium Potassium Chloride Carbon Dioxide Creatinine Glucose POC Glucose Calcium Phosphorus Magnesium Total Creatine Kinase CK-MB (CK-2) Rel Index Troponin T C-Reactive Protein Total Protein Albumin LDL Cholesterol Direct Urine WBC (Auto) 04/08/22 04/08/22 04/08/22 04:49 09:53 10:25 WBC RBC Hgb Hct MCV Plt Count Lymph % (Auto) [place] % (Auto) Lymph # (Auto) [place] # (Auto) Seg Neutrophils % Seg Neuts % (Manual) Lymphocytes % (Manual) Seg Neutrophils # Seg Neutrophils # Man Lymphocytes # (Manual) PT INR ABG pH ABG pO2 ABG HCO3 34.7 H ABG O2 Saturation ABG Base Excess 7.9 H ABG Hemoglobin 11.0 L Oxyhemoglobin Sodium 136 L Potassium Chloride 97.7 L Carbon Dioxide 33 H Creatinine 0.2 L Glucose 155 H POC Glucose Calcium Phosphorus Magnesium Total Creatine Kinase CK-MB (CK-2) Rel Index Troponin T 0.030 H C-Reactive Protein Total Protein Albumin LDL Cholesterol Direct Urine WBC (Auto) 04/08/22 04/08/22 04/08/22 11:19 17:47 18:06 WBC RBC Hgb Hct MCV Plt Count Lymph % (Auto) [place] % (Auto) Lymph # (Auto) [place] # (Auto) Seg Neutrophils % Seg Neuts % (Manual) Lymphocytes % (Manual) Seg Neutrophils # Seg Neutrophils # Man Lymphocytes # (Manual) PT INR ABG pH ABG pO2 ABG HCO3 ABG O2 Saturation ABG Base Excess ABG Hemoglobin Oxyhemoglobin Sodium Potassium Chloride Carbon Dioxide Creatinine Glucose POC Glucose 121 H Calcium Phosphorus Magnesium Total Creatine Kinase 31 L 46 L CK-MB (CK-2) Rel Index 6.4 H 5.6 H Troponin T 0.030 H 0.031 H C-Reactive Protein Total Protein Albumin LDL Cholesterol Direct Urine WBC (Auto) 04/09/22 04/09/22 04/09/22 04:35 04:35 11:24 WBC 11.5 H RBC 3.16 L Hgb 9.9 L Hct 29.4 L MCV Plt Count 131 L Lymph % (Auto) [place] % (Auto) Lymph # (Auto) [place] # (Auto) Seg Neutrophils % Seg Neuts % (Manual) Lymphocytes % (Manual) Seg Neutrophils # Seg Neutrophils # Man Lymphocytes # (Manual) PT INR ABG pH ABG pO2 ABG HCO3 ABG O2 Saturation ABG Base Excess ABG Hemoglobin Oxyhemoglobin Sodium Potassium Chloride 97.1 L Carbon Dioxide 35 H Creatinine < 0.2 L Glucose 145 H POC Glucose 147 H Calcium Phosphorus Magnesium Total Creatine Kinase CK-MB (CK-2) Rel Index Troponin T C-Reactive Protein Total Protein Albumin LDL Cholesterol Direct Urine WBC (Auto) 04/09/22 04/09/22 04/09/22 13:00 17:32 23:48 WBC RBC Hgb Hct MCV Plt Count Lymph % (Auto) [place] % (Auto) Lymph # (Auto) [place] # (Auto) Seg Neutrophils % Seg Neuts % (Manual) Lymphocytes % (Manual) Seg Neutrophils # Seg Neutrophils # Man Lymphocytes # (Manual) PT INR ABG pH ABG pO2 66.6 L ABG HCO3 38.2 H ABG O2 Saturation 94.4 L ABG Base Excess 10.7 H ABG Hemoglobin 10.7 L Oxyhemoglobin 92.8 L Sodium Potassium Chloride Carbon Dioxide Creatinine Glucose POC Glucose 143 H 114 H Calcium Phosphorus Magnesium Total Creatine Kinase CK-MB (CK-2) Rel Index Troponin T C-Reactive Protein Total Protein Albumin LDL Cholesterol Direct Urine WBC (Auto) 04/10/22 04/10/22 04/10/22 04:48 04:48 05:34 WBC RBC 2.91 L Hgb 9.1 L Hct 27.7 L MCV 95 H Plt Count Lymph % (Auto) [place] % (Auto) Lymph # (Auto) [place] # (Auto) Seg Neutrophils % Seg Neuts % (Manual) Lymphocytes % (Manual) Seg Neutrophils # Seg Neutrophils # Man Lymphocytes # (Manual) PT INR ABG pH ABG pO2 ABG HCO3 ABG O2 Saturation ABG Base Excess ABG Hemoglobin Oxyhemoglobin Sodium Potassium Chloride 95.7 L Carbon Dioxide 38 H Creatinine < 0.2 L Glucose 118 H POC Glucose 127 H Calcium Phosphorus Magnesium Total Creatine Kinase CK-MB (CK-2) Rel Index Troponin T C-Reactive Protein Total Protein Albumin LDL Cholesterol Direct Urine WBC (Auto) 04/10/22 04/11/22 04/11/22 23:10 04:15 04:15 WBC 17.2 H RBC 2.98 L Hgb 9.2 L Hct 27.9 L MCV Plt Count Lymph % (Auto) [place] % (Auto) Lymph # (Auto) [place] # (Auto) Seg Neutrophils % Seg Neuts % (Manual) Lymphocytes % (Manual) Seg Neutrophils # Seg Neutrophils # Man Lymphocytes # (Manual) PT INR ABG pH ABG pO2 ABG HCO3 ABG O2 Saturation ABG Base Excess ABG Hemoglobin Oxyhemoglobin Sodium Potassium Chloride 96.1 L Carbon Dioxide 35 H Creatinine < 0.2 L Glucose 138 H POC Glucose 106 H Calcium 8.3 L Phosphorus Magnesium Total Creatine Kinase CK-MB (CK-2) Rel Index Troponin T C-Reactive Protein Total Protein Albumin LDL Cholesterol Direct Urine WBC (Auto) 04/11/22 04/11/22 04/11/22 05:31 13:18 16:20 WBC RBC Hgb Hct MCV Plt Count Lymph % (Auto) [place] % (Auto) Lymph # (Auto) [place] # (Auto) Seg Neutrophils % Seg Neuts % (Manual) Lymphocytes % (Manual) Seg Neutrophils # Seg Neutrophils # Man Lymphocytes # (Manual) PT INR ABG pH ABG pO2 57.8 L ABG HCO3 40.5 H ABG O2 Saturation 90.6 L ABG Base Excess 12.6 H ABG Hemoglobin 10.5 L Oxyhemoglobin 89.0 L Sodium Potassium Chloride Carbon Dioxide Creatinine Glucose POC Glucose 129 H 132 H Calcium Phosphorus Magnesium Total Creatine Kinase CK-MB (CK-2) Rel Index Troponin T C-Reactive Protein Total Protein Albumin LDL Cholesterol Direct Urine WBC (Auto) 04/11/22 04/11/22 04/12/22 17:29 23:17 04:00 WBC 17.4 H RBC 2.96 L Hgb 9.0 L Hct 28.0 L MCV 95 H Plt Count Lymph % (Auto) [place] % (Auto) Lymph # (Auto) [place] # (Auto) Seg Neutrophils % Seg Neuts % (Manual) Lymphocytes % (Manual) Seg Neutrophils # Seg Neutrophils # Man Lymphocytes # (Manual) PT INR ABG pH ABG pO2 ABG HCO3 ABG O2 Saturation ABG Base Excess ABG Hemoglobin Oxyhemoglobin Sodium Potassium Chloride Carbon Dioxide Creatinine Glucose POC Glucose 125 H 151 H Calcium Phosphorus Magnesium Total Creatine Kinase CK-MB (CK-2) Rel Index Troponin T C-Reactive Protein Total Protein Albumin LDL Cholesterol Direct Urine WBC (Auto) 04/12/22 04/12/22 04/12/22 04:00 17:03 23:39 WBC RBC Hgb Hct MCV Plt Count Lymph % (Auto) [place] % (Auto) Lymph # (Auto) [place] # (Auto) Seg Neutrophils % Seg Neuts % (Manual) Lymphocytes % (Manual) Seg Neutrophils # Seg Neutrophils # Man Lymphocytes # (Manual) PT INR ABG pH ABG pO2 ABG HCO3 ABG O2 Saturation ABG Base Excess ABG Hemoglobin Oxyhemoglobin Sodium Potassium Chloride 97.4 L Carbon Dioxide 37 H Creatinine < 0.2 L Glucose 127 H POC Glucose 106 H 107 H Calcium Phosphorus Magnesium Total Creatine Kinase CK-MB (CK-2) Rel Index Troponin T C-Reactive Protein Total Protein Albumin LDL Cholesterol Direct Urine WBC (Auto) 04/13/22 04/13/22 04/13/22 04:30 04:30 17:39 WBC 14.1 H RBC 2.66 L Hgb 8.4 L Hct 25.5 L MCV 96 H Plt Count Lymph % (Auto) [place] % (Auto) Lymph # (Auto) [place] # (Auto) Seg Neutrophils % Seg Neuts % (Manual) Lymphocytes % (Manual) Seg Neutrophils # Seg Neutrophils # Man Lymphocytes # (Manual) PT INR ABG pH ABG pO2 ABG HCO3 ABG O2 Saturation ABG Base Excess ABG Hemoglobin Oxyhemoglobin Sodium Potassium Chloride 93.9 L Carbon Dioxide 39 H Creatinine < 0.2 L Glucose POC Glucose 134 H Calcium Phosphorus 1.90 L Magnesium Total Creatine Kinase CK-MB (CK-2) Rel Index Troponin T C-Reactive Protein Total Protein Albumin LDL Cholesterol Direct Urine WBC (Auto) 04/14/22 04/14/22 04/14/22 05:03 05:03 09:10 WBC 15.6 H RBC 3.02 L Hgb 9.3 L Hct 28.8 L MCV 95 H Plt Count Lymph % (Auto) [place] % (Auto) Lymph # (Auto) [place] # (Auto) Seg Neutrophils % Seg Neuts % (Manual) Lymphocytes % (Manual) Seg Neutrophils # Seg Neutrophils # Man Lymphocytes # (Manual) PT INR ABG pH ABG pO2 66.9 L ABG HCO3 44.5 H ABG O2 Saturation ABG Base Excess 17.2 H ABG Hemoglobin 8.1 L Oxyhemoglobin 94.8 L Sodium Potassium Chloride 93.8 L Carbon Dioxide 42 H* Creatinine < 0.2 L Glucose 117 H POC Glucose Calcium Phosphorus Magnesium Total Creatine Kinase CK-MB (CK-2) Rel Index Troponin T C-Reactive Protein Total Protein Albumin LDL Cholesterol Direct Urine WBC (Auto) Allied health notes reviewed: nursing
--- NOTE | 2022-04-14 12:02 | Progress Note ---
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 Secondary to pneumonia. #Hospital-acquired pneumonia. Was recently seen at [facility], was initially discharged to home hospice, as such was not given antibiotics. Cultures here with Pseudomonas, Enterobacter. Complete 10 days of cefepime. #Acute hypoxic respiratory failure: Currently on the vent. #ALS: Was on home hospice. #Bacillus bacteremia: likely contaminant. Recs: -Complete 10 days of cefepime as planned ending after tomorrow's doses -Awaiting trach, PEG -Overall poor prognosis given his underlying progressive ALS Carmen German MD, FACP, [facility] ([facility]) O: [phone] F: [phone] C: [phone] Subjective Date of service: 04/14/22 Principal diagnosis: Ac and ch hypercapnic and hypoxemic Resp Failure; ALS; HCAP; Sepsis; NSTEMI Interval history: No fever. Awake. is at bedside. Remains on the vent. Objective - Exam Narrative Exam: Physical Exam: Constitutional: awake, intubated, on the vent Head, Ears, Nose: Normocephalic, atraumatic. External ears, nose normal Eyes: Conjunctivae/corneas clear. No icterus. No ptosis. Neck: intubated Oral: intubated Cardiovascular: S1, S2 + Respiratory: AE fair bilaterally and equal GI: Soft, bowel sounds + Musculoskeletal: No pedal edema, no cyanosis. Skin: No rash or abscess Hem/Lymphatic: No palpable cervical or supraclavicular nodes. No lymphangitis Psych: no agitation Neurological: awake, intubated, on the vent, exam limited - Constitutional Vitals: Vital Signs Temp Pulse Resp BP Pulse Ox 98.3 F 80 14 108/62 95 04/14/22 11:47 04/14/22 12:00 04/14/22 12:00 04/14/22 12:00 04/14/22 12:00 Temperature -Last 24 Hours Temperature 98.3 F Temperature 99.3 F Temperature 99.4 F Temperature 99.3 F Temperature 97.7 F Temperature 97 F - Labs CBC & Chem 7: 04/14/22 05:03 04/14/22 05:03 Labs: Abnormal lab results 04/13/22 04/14/22 04/14/22 Range/Units 17:39 05:03 05:03 WBC 15.6 H (4.5-11.0) K/mm3 RBC 3.02 L (3.65-5.03) M/mm3 Hgb 9.3 L (11.8-15.2) gm/dl Hct 28.8 L (35.5-45.6) % MCV 95 H (84-94) fl ABG pO2 (80.0-90.0) mm Hg ABG HCO3 (20.0-26.0) mmol/L ABG Base Excess (-2.0-3.0) mmol/L ABG Hemoglobin (14.0-18.0) gm/dl Oxyhemoglobin (95.0-99.0) % Chloride 93.8 L (98-107) mmol/L Carbon Dioxide 42 H* (22-30) mmol/L Creatinine < 0.2 L (0.8-1.3) mg/dL Glucose 117 H (75-100) mg/dL POC Glucose 134 H (70-105) mg/dL 04/14/22 Range/Units 09:10 WBC (4.5-11.0) K/mm3 RBC (3.65-5.03) M/mm3 Hgb (11.8-15.2) gm/dl Hct (35.5-45.6) % MCV (84-94) fl ABG pO2 66.9 L (80.0-90.0) mm Hg ABG HCO3 44.5 H (20.0-26.0) mmol/L ABG Base Excess 17.2 H (-2.0-3.0) mmol/L ABG Hemoglobin 8.1 L (14.0-18.0) gm/dl Oxyhemoglobin 94.8 L (95.0-99.0) % Chloride (98-107) mmol/L Carbon Dioxide (22-30) mmol/L Creatinine (0.8-1.3) mg/dL Glucose (75-100) mg/dL POC Glucose (70-105) mg/dL
--- NOTE | 2022-04-14 13:08 | Progress Note ---
<ALEK SMITH - Last Filed: 04/14/22 17:19> Assessment and Plan Assessment and plan: This is a 57-year-old male with known history of ALS, recently hospitalized at [facility] admitted for acute hypoxemic respiratory failure 2/2 pneumonia Hospital Course to Date: 04/03: Intubated and Sedated on versed gtt, RASS-5. CT head/brain noted with no acute intracranial abnormality. Plan to initiated precededx gtt and wean off versed for a RASS goal of 0 to -2. CT chect also reviewed, findings are most consistent with acute bronchopneumonia. Continue empiric IV Abx, vent adjustment per CCM. ID consulted. Continue to F/U on cultures. Titrate pressor for MAP above 65. Medical records requested from [facility]. 04/04: Remains stable on the vent, easily arousable on precedex gtt, not following commands. Plan for SAT/SBT today. PRN analgesia for CPOT greater than 3. Fevers improved, cultures and procal pending. Continue current IV abx, ID also consulted. Remains on low dose pressors, titrate pressors for a MAP above 65. 04/05: Long discussion with family with use of translation phone with CCM regarding goals of care. Family to have meeting amongst themselves and informed care team of decisions. Fentanyl drip added for respiratory distress. Remains on Precedex drip. Antibiotics per ID. Given 2L NS bolus with levophed gtt 04/06: Family discussion with Dr. Grayson for goals of care. CXR shows possible mucus plug, continue CPT as FiO2 is being able to be weaned. Potassium repleted. Weaning fentnyl gtt. 04/07: Ultrasound guided thoracentesis today scheduled, inadequate amount of pleural effusion on so not completed. Patient was started on Levophed overnight which was weaned off this morning however had to be started twice a day. Remains on fentanyl and Precedex. Cardiology discontinued BB and ACEi in setting of hypotension. 04/08: COVID-19 PCR negative. Routine EEG ordered by cardiology which showed ST changes, cardiology aware. They will continue conservative treatment. Repeat troponins 0.030 which are less than admit of 0.048. Dr. Grayson had a long discu ssion with with the use of technology instructor today at bedside and has not made a decision regarding goals of care. Possible consult to surgery for trach/PEG early next week. Continues to require Precedex and fentanyl drip for sedation. Carvedilol/lisinopril discontinued as patient is continuously on Levophed. 04/09: No acute events reported overnight, remains on fentanyl, Precedex and Levophed drips. Dr. Grayson and Dr. Pineda updated family at bedside extensively today. Consulted surgery for trach/PEG. COVID-19 PCR negative. 04/10: Patient noted to have desaturation episodes, FiO2 increased slightly to 35%. Will add Mucomyst. Remains on fentanyl and Precedex. Off of Levophed. Surgery consulted for trach/PEG. 04/11: FiO2 increased over night likely related to hypoxia, continues on fent gtt, weaning precedex gtt as he is also on Seroquel. Will d/w CCM re scheduled or prn oxycodone 04/12: Periods of hypoxia and tachycardia this am. Symptoms improved post deep suction and tracheal lavage, Repeat CXR noted with no significant change. Continue CPT and mucomyst. Plan for possible trach/PEG tomorrow by general surgery. 04/13: Remains stable on the vent. Patient is wake and tracking but does not follow simple commands. No report of hypoxia from overnight, continue CPT and mucomyst. Plan for track and PEG today by General Surgery. Plan for LTAC placement post procedure, case management to arrange. 04/14: VIRGILIO overnight, Trach and PEG postponed for today by general surgery. Plan for LTAC placement post procedure, case management to arrange. Assessment and Plan #Acute Hypoxemic Respiratory Failure 2/ #Acute Bronchopneumonia - Intubated in the ED on 04/02 for hypoxemia and airway protection - Vent setting: PRVC-55%,10,14,400 - ABG noted - CXR shows moderate to large layering effusion on the right, see report for full detail - CT chest also reviewed, findings are most consistent with acute bronchopneumonia. See report for full detail - CCM consulted, appreciate recommendations - Continue IV abx, CPT, and mucomyst - VAP bundle addressed - Aspiration precaution HOB above 30 - Daily SBT and SAT trials as tolerated - PRN ABG and CXR per CCM - Continue SPO2 monitoring for SPO2 goal above 92% - Plan for possible Trach/PEG tomorrow by general surgery #Sepsis #Acute Bronchopneumonia #HCAP #Leukocytosis - CXR shows moderate to large layering effusion on the right, see report for full detail - CT chest also reviewed, findings are most consistent with acute bronchopneumonia. See report for full detail - Patient was recent hospitalized for pneumonia - Patient remains afebrile - Tracheal aspirate with Pseudomonas aeruginosa, Enterobacter aerogenes - 04/02 blood culture with bacillus species, 04/05 blood culture NGTD - CRP 31.6, procalcitonin 0.08 - MRSA negative - ID on consulted, appreciate recommendations - Continue IV Abx Cefepine per ID - Continue to F/U on cultures - Daily CBC monitor #Hypotension 2/2 sepsis-resolved #Suspect ischemic coronary artery disease #h/o cardiomyopathy - Low BP probably due to hypovolemia vs sedation vs infectious process - s/p Levophed gtt - Elevated troponin possibly a type II troponin leak - Cardiology consulted, appreciated recommendations - Echocardiogram shows ejection fraction of 40 to 45%, mild global hypokinesis of left ventricle - Continue BB - Continue blood pressure monitor per protocol - Titrate pressors to maintain MAP above 65 - On heparin SubQ #Hypernatremia-resolved - NGT inserted, continue FWF - Monitor and replace electrolytes as needed - Continue to trend BMP #Acute Metabolic Encephalopathy #H/o Amyotrophic Lateral Sclerosis #Nonverbal at Baseline - Presented with AMS, per family patient is nonverbal at baseline but responsive - currently intubated and arousable on precedex and fentanyl gtt - CT head/Brain with no acute intracranial process - Titrate sedation for RASS goal of 0 to -2 - Seroquel increased per CCM - Daily SAT and SBT as tolerated - Avoid benzodiazepine to reduce the possibility of delirium - PRN analgesia for CPOT greater than 3 - Maintenance of sleep-wake cycle #Thrombocytopenia-resolved - Continue to trend plt - On heparin subQ - Monitor for s/s of any active bleeding #Protein Caloric Malnutrition - Albumin 2.7, Total protein 4.6 - NGT in place, enteral nutrition initiated - Nutrition consulted #Constipation - Noted on CXR and KUB - last BM 04/12 - Continue BR #GI/DVT Prophylaxis - PPI- Pepcid - Heparin SubQ - SCDs to bilateral lower extremities while in bed #Advance Care Planning - Disease education data, care plan, diagnoses, and prognosis were discussed patient's , Carly Lopez, and patient daughter, Kaylee Warren, who translated for #[phone]. They reported that patient was following at [facility] for his ALS and during recent hospitalization at [facility] they were told nothing else can be offered to patient at this time and patient was discharge home with home hospice and PO morphine. First hospice visit was on , however, patient became unresponsive yesterday and they brought in to the hospital. - Goal of care and code status were also addressed at that time. Family wants to wait for a couple days to see how patient respond to current treatment before making a decision. All questions and concerns were addressed at this time. Patient family acknowledged understanding and agreement with care plan. - Patient remains a FULL CODE status -04/05: Discussion at bedside with interpreting service with Dr. Valdivia and family state they would discuss next steps amongst themselves and let healthcare team know of decisions -04/06: extensive discussion with family ( and son) with Dr. Grayson regarding goals of care -04/08: Extensive discussion with with the use of technology instructor line regarding goals of care; no decision made. Possible consult to surgery for trach/PEG early next week. -04/09: Discussion with and her sister with Dr. Grayson and then with Dr. Pineda-> Consulted surgery for trach/peg The high probability of a clinically significant, sudden or life threatening deterioration of the [multiple] system(s) required my full and direct attention, intervention and personal management. The aggregate critical care time was [60] minutes. This time is in addition to time spent performing reported procedures but includes the following: [x] Data Review and interpretation [x] Patient assessment and monitoring of vital signs [x] Documentation [x] Medication orders and management Disposition Plan: ICU Total Time Spent with Patient (Minutes): 60 History Interval history: Patient seen and examined at the bedside. Intubated and on sedation. Easily arousable and tracking with mild stimuli, but does not follow commands. VIRGILIO EUBANKS overnight Hospitalist Physical - Physical exam Narrative exam: General appearance: Present: no acute distress, cachectic, other (Intubated, easily arousable on precedex and fentanyl gtts) - EENT Eyes: Present: PERRL - Neck Neck: Present: normal ROM - Respiratory Respiratory effort: normal Respiratory: bilateral: rhonchi - Cardiovascular Rhythm: regular Heart Sounds: Present: S1 & S2 - Extremities Extremities: no ischemia, pulses intact, pulses symmetrical Peripheral Pulses: within normal limits - Abdominal General gastrointestinal: soft, non-distended, normal bowel sounds - Integumentary Integumentary: Present: warm, dry - Psychiatric Psychiatric: other (Intubated, easily arousable and tracking on precedex and fentanyl gtts) - Neurologic Neurologic: other (Intubated, easily arousable and tracking on precedex and fentanyl gtts. Does not follow commands) - Allied Health Allied health notes reviewed: nursing, case management - Constitutional Vitals: Temp Pulse Resp BP Pulse Ox 98.3 F 90 14 110/71 95 04/14/22 11:47 04/14/22 13:00 04/14/22 13:00 04/14/22 13:00 04/14/22 13:00 HEART Score - HEART Score Troponin: Troponin T 0.031 ng/mL (0.00-0.029) H 04/08/22 17:47 Results - Labs CBC & Chem 7: 04/14/22 05:03 04/14/22 05:03 Labs: Laboratory Last Values WBC 15.6 K/mm3 (4.5-11.0) H 04/14/22 05:03 RBC 3.02 M/mm3 (3.65-5.03) L 04/14/22 05:03 Hgb 9.3 gm/dl (11.8-15.2) L 04/14/22 05:03 Hct 28.8 % (35.5-45.6) L 04/14/22 05:03 MCV 95 fl (84-94) H 04/14/22 05:03 MCH 31 pg (28-32) 04/14/22 05:03 MCHC 32 % (32-34) 04/14/22 05:03 RDW 13.7 % (13.2-15.2) 04/14/22 05:03 Plt Count 342 K/mm3 (140-440) 04/14/22 05:03 Lymph % (Auto) 4.3 % (13.4-35.0) L 04/07/22 03:51 [place] % (Auto) 8.8 % (0.0-7.3) H 04/07/22 03:51 Eos % (Auto) 0.1 % (0.0-4.3) 04/07/22 03:51 Baso % (Auto) 0.2 % (0.0-1.8) 04/07/22 03:51 Lymph # (Auto) 0.6 K/mm3 (1.2-5.4) L 04/07/22 03:51 [place] # (Auto) 1.3 K/mm3 (0.0-0.8) H 04/07/22 03:51 Eos # (Auto) 0.0 K/mm3 (0.0-0.4) 04/07/22 03:51 Baso # (Auto) 0.0 K/mm3 (0.0-0.1) 04/07/22 03:51 Add Manual Diff Complete 04/02/22 19:39 Total Counted 100 04/02/22 19:39 Seg Neutrophils % 86.6 % (40.0-70.0) H 04/07/22 03:51 Seg Neuts % (Manual) 94.0 % (40.0-70.0) H 04/02/22 19:39 Band Neutrophils % 0 % 04/02/22 19:39 Lymphocytes % (Manual) 1.0 % (13.4-35.0) L 04/02/22 19:39 Reactive Lymphs % (Man) 0 % 04/02/22 19:39 Monocytes % (Manual) 5.0 % (0.0-7.3) 04/02/22 19:39 Eosinophils % (Manual) 0 % (0.0-4.3) 04/02/22 19:39 Basophils % (Manual) 0 % (0.0-1.8) 04/02/22 19:39 Metamyelocytes % 0 % 04/02/22 19:39 Myelocytes % 0 % 04/02/22 19:39 Promyelocytes % 0 % 04/02/22 19:39 Blast Cells % 0 % 04/02/22 19:39 Nucleated RBC % Not Reportable 04/02/22 19:39 Seg Neutrophils # 12.7 K/mm3 (1.8-7.7) H 04/07/22 03:51 Seg Neutrophils # Man 13.4 K/mm3 (1.8-7.7) H 04/02/22 19:39 Band Neutrophils # 0.0 K/mm3 04/02/22 19:39 Lymphocytes # (Manual) 0.1 K/mm3 (1.2-5.4) L 04/02/22 19:39 Abs React Lymphs (Man) 0.0 K/mm3 04/02/22 19:39 Monocytes # (Manual) 0.7 K/mm3 (0.0-0.8) 04/02/22 19:39 Eosinophils # (Manual) 0.0 K/mm3 (0.0-0.4) 04/02/22 19:39 Basophils # (Manual) 0.0 K/mm3 (0.0-0.1) 04/02/22 19:39 Metamyelocytes # 0.0 K/mm3 04/02/22 19:39 Myelocytes # 0.0 K/mm3 04/02/22 19:39 Promyelocytes # 0.0 K/mm3 04/02/22 19:39 Blast Cells # 0.0 K/mm3 04/02/22 19:39 WBC Morphology Not Reportable 04/02/22 19:39 Hypersegmented Neuts Not Reportable 04/02/22 19:39 Hyposegmented Neuts Not Reportable 04/02/22 19:39 Hypogranular Neuts Not Reportable 04/02/22 19:39 Smudge Cells Not Reportable 04/02/22 19:39 Toxic Granulation Not Reportable 04/02/22 19:39 Toxic Vacuolation Not Reportable 04/02/22 19:39 Dohle Bodies Not Reportable 04/02/22 19:39 Pelger-Huet Anomaly Not Reportable 04/02/22 19:39 Terry Rods Not Reportable 04/02/22 19:39 Platelet Estimate Consistent w auto 04/02/22 19:39 Clumped Platelets Not Reportable 04/02/22 19:39 Plt Clumps, EDTA Not Reportable 04/02/22 19:39 Large Platelets Not Reportable 04/02/22 19:39 Giant Platelets Not Reportable 04/02/22 19:39 Platelet Satelliting Not Reportable 04/02/22 19:39 Plt Morphology Comment Not Reportable 04/02/22 19:39 RBC Morphology Not Reportable 04/02/22 19:39 Dimorphic RBCs Not Reportable 04/02/22 19:39 Polychromasia Not Reportable 04/02/22 19:39 Hypochromasia Not Reportable 04/02/22 19:39 Poikilocytosis Not Reportable 04/02/22 19:39 Anisocytosis 1+ 04/02/22 19:39 Microcytosis Not Reportable 04/02/22 19:39 Macrocytosis Not Reportable 04/02/22 19:39 Spherocytes Not Reportable 04/02/22 19:39 Pappenheimer Bodies Not Reportable 04/02/22 19:39 Sickle Cells Not Reportable 04/02/22 19:39 Target Cells Not Reportable 04/02/22 19:39 Tear Drop Cells Not Reportable 04/02/22 19:39 Ovalocytes Not Reportable 04/02/22 19:39 Helmet Cells Not Reportable 04/02/22 19:39 Patricio-Hart[place] Bodies Not Reportable 04/02/22 19:39 [place] Rings Not Reportable 04/02/22 19:39 Cheikh Cells Not Reportable 04/02/22 19:39 Bite Cells Not Reportable 04/02/22 19:39 Crenated Cell Not Reportable 04/02/22 19:39 Elliptocytes Not Reportable 04/02/22 19:39 Acanthocytes (Spur) Not Reportable 04/02/22 19:39 Rouleaux Not Reportable 04/02/22 19:39 Hemoglobin C Crystals Not Reportable 04/02/22 19:39 Schistocytes Not Reportable 04/02/22 19:39 Malaria parasites Not Reportable 04/02/22 19:39 [place] Bodies Not Reportable 04/02/22 19:39 Hem Pathologist Commnt No 04/02/22 19:39 PT 13.6 Sec. (12.2-14.9) 04/13/22 04:30 INR 0.94 (0.87-1.13) 04/13/22 04:30 APTT 35.7 Sec. (24.2-36.6) 04/07/22 03:51 ABG pH 7.383 pH Units (7.350-7.450) 04/14/22 09:10 ABG pCO2 76.5 mm Hg 04/14/22 09:10 ABG pO2 66.9 mm Hg (80.0-90.0) L 04/14/22 09:10 ABG HCO3 44.5 mmol/L (20.0-26.0) H 04/14/22 09:10 ABG O2 Saturation 96.4 % (95.0-99.0) 04/14/22 09:10 ABG O2 Content 10.9 (0.0-44) 04/14/22 09:10 ABG Base Excess 17.2 mmol/L (-2.0-3.0) H 04/14/22 09:10 ABG Hemoglobin 8.1 gm/dl (14.0-18.0) L 04/14/22 09:10 ABG Carboxyhemoglobin 1.3 % (0.0-5.0) 04/14/22 09:10 ABG Methemoglobin 0.3 % (0.0-1.5) 04/14/22 09:10 Oxyhemoglobin 94.8 % (95.0-99.0) L 04/14/22 09:10 FiO2 55 % 04/14/22 09:10 Sodium 140 mmol/L (137-145) 04/14/22 05:03 Potassium 4.2 mmol/L (3.6-5.0) 04/14/22 05:03 Chloride 93.8 mmol/L (98-107) L 04/14/22 05:03 Carbon Dioxide 42 mmol/L (22-30) H* 04/14/22 05:03 Anion Gap 8 mmol/L 04/14/22 05:03 BUN 17 mg/dL (9-20) 04/14/22 05:03 Creatinine < 0.2 mg/dL (0.8-1.3) L 04/14/22 05:03 Estimated GFR > 60 ml/min 04/14/22 05:03 BUN/Creatinine Ratio 85 % 04/14/22 05:03 Glucose 117 mg/dL (75-100) H 04/14/22 05:03 POC Glucose 134 mg/dL (70-105) H 04/13/22 17:39 Lactic Acid 1.90 mmol/L (0.7-2.0) 04/02/22 19:39 Calcium 8.6 mg/dL (8.4-10.2) 04/14/22 05:03 Phosphorus 1.90 mg/dL (2.5-4.5) L 04/13/22 04:30 Magnesium 1.90 mg/dL (1.7-2.3) 04/13/22 04:30 Total Bilirubin 0.80 mg/dL (0.1-1.2) 04/02/22 19:39 AST 15 units/L (5-40) 04/02/22 19:39 ALT 9 units/L (7-56) 04/02/22 19:39 Alkaline Phosphatase 43 units/L (35-129) 04/02/22 19:39 Total Creatine Kinase 46 units/L (55-170) L 04/08/22 17:47 CK-MB (CK-2) 2.6 ng/mL (0.0-4.0) 04/08/22 17:47 CK-MB (CK-2) Rel Index 5.6 (0-4) H 04/08/22 17:47 Troponin T 0.031 ng/mL (0.00-0.029) H 04/08/22 17:47 C-Reactive Protein 31.60 mg/dL (0.00-1.30) H 04/04/22 04:18 Total Protein 4.6 g/dL (6.3-8.2) L 04/02/22 19:39 Albumin 2.7 g/dL (3.9-5) L 04/02/22 19:39 Albumin/Globulin Ratio 1.4 % 04/02/22 19:39 Triglycerides 80 mg/dL (2-149) 04/02/22 19:39 Cholesterol 94 mg/dL (50-199) 04/02/22 19:39 LDL Cholesterol Direct 27 mg/dL (50-130) L 04/02/22 19:39 HDL Cholesterol 47 mg/dL (40-59) 04/02/22 19:39 Cholesterol/HDL Ratio 2.00 % 04/02/22 19:39 Procalcitonin 0.08 ng/mL (<0.15) 04/04/22 04:18 Urine Color Aracely (Yellow) 04/05/22 17:45 Urine Turbidity Cloudy (Clear) 04/05/22 17:45 Urine pH 5.0 (5.0-7.0) 04/05/22 17:45 Ur Specific [place]o 1.021 (1.003-1.030) 04/05/22 17:45 Urine Protein 30 mg/dl mg/dL (Negative) 04/05/22 17:45 Urine Glucose (UA) Neg mg/dL (Negative) 04/05/22 17:45 Urine Ketones Tr mg/dL (Negative) 04/05/22 17:45 Urine Blood Sm (Negative) 04/05/22 17:45 Urine Nitrite Neg (Negative) 04/05/22 17:45 Urine Bilirubin Neg (Negative) 04/05/22 17:45 Urine Urobilinogen < 2.0 mg/dL (<2.0) 04/05/22 17:45 Ur Leukocyte Esterase Tr (Negative) 04/05/22 17:45 Urine WBC (Auto) 8.0 /HPF (0.0-6.0) H 04/05/22 17:45 Urine RBC (Auto) 3.0 /HPF (0.0-6.0) 04/05/22 17:45 U Epithel Cells (Auto) 2.0 /HPF (0-13.0) 04/05/22 17:45 Urine Bacteria (Auto) 1+ /HPF (Negative) 04/02/22 Unknown Hyaline Casts 1 /LPF 04/05/22 17:45 Urine Mucus 3+ /HPF 04/05/22 17:45 Nasal Screen MRSA (PCR) Negative (Negative) 04/05/22 12:37 Vancomycin Trough 6.0 ug/mL (5.0-20.0) 04/05/22 18:53 Coronavirus (PCR) Negative (Negative) 04/07/22 14:52 Perez/IV: Voiding Method Condom Catheter Active Medications - Current Medications Current Medications: Generic Name Dose Route Start Last Admin Trade Name Freq PRN Reason Stop Dose Admin Acetaminophen 650 mg 04/02/22 23:53 04/11/22 17:31 Acetaminophen 325 Mg Tab PO 650 mg Q6H PRN Administration Pain MILD(1-3)/Fever >100.5/FAITH Acetylcysteine 200 mg 04/13/22 00:00 04/14/22 10:56 Acetylcysteine 10% 100 Mg/1 Ml *For Inhalation Use* INHALATION 04/15/22 00:00 Not Given Q8HRT SEGUNDO Albuterol 2.5 mg 04/06/22 16:00 04/14/22 07:23 Albuterol 2.5 Mg/3 Ml Nebu IH 2.5 mg Q8HRT SEGUNDO Administration Bisacodyl 10 mg 04/07/22 09:44 04/12/22 10:06 Bisacodyl 10 Mg Rect Supp MA 10 mg QDAY PRN Administration Constipation Dextrose 50 ml 04/06/22 17:54 Dextrose 50% In Water (25gm) 50 Ml Syringe IV Q30MIN PRN Hypoglycemia Protocol Docusate Sodium 100 mg 04/03/22 15:00 04/14/22 10:03 Docusate Sodium 100 Mg/10 Ml Oral Liqd PO 100 mg BID SEGUNDO Administration Famotidine 20 mg 04/06/22 10:00 04/14/22 10:03 Famotidine 20 Mg Tab FEEDTUBE 20 mg BID SEGUNDO Administration Fentanyl 50 mcg 04/04/22 15:56 04/14/22 05:18 Fentanyl 100 Mcg/2 Ml Inj IV 50 mcg Q2HR PRN Administration For CPOT of greater than 2 Heparin Sodium (Porcine) 5,000 unit 04/03/22 06:00 04/14/22 05:06 Heparin 5,000 Unit/1 Ml Vial SUB-Q Not Given Q8HR SEGUNDO NORepinephrine/NS 8 MG-250 ML 8 mg in 250 mls @ 3.75 mls/hr 04/02/22 22:00 04/10/22 09:20 Norepinephrine/Ns 8 Mg-250 Ml (Double Conc) IV 0 mcg/min TITRATE SEGUNDO 0 mls/hr Titration Protocol 2 MCG/MIN Dexmedetomidine HCl 400 mcg/ 104 mls @ 2.434 mls/hr 04/03/22 07:00 04/14/22 11:40 Sodium Chloride IV 0.7 mcg/kg/hr TITRATE SEGUNDO 8.518 mls/hr Administration Protocol 0.2 MCG/KG/HR Fentanyl Citrate 2,000 mcg in 100 mls @ 2.34 mls/hr 04/05/22 11:00 04/14/22 05:07 Fentanyl Drip Premix IV 4 mcg/kg/hr TITR SEGUNDO 9.36 mls/hr Administration Protocol 1 MCG/KG/HR Cefepime HCl 2 gm in 100 mls @ 200 mls/hr 04/12/22 13:00 04/14/22 12:07 Cefepime/Ns 2 Gm/100 Ml IV 04/15/22 12:59 200 mls/hr Q12H SEGUNDO Administration Protocol Insulin Human Regular 0 units 04/06/22 18:00 04/14/22 11:41 Insulin Regular, Human 100 Units/1 Ml SUB-Q Not Given Q6H [facility] Protocol Magnesium Hydroxide 30 ml 04/02/22 23:53 Magnesium Hydroxide (Mom) Oral Liqd Udc PO Q4H PRN Constipation Metoprolol Tartrate 12.5 mg 04/11/22 08:55 04/14/22 11:39 Metoprolol Tartrate 25 Mg Tab FEEDTUBE 12.5 mg Q6HR SEGUNDO Administration Nitroglycerin 0.2 mg 04/11/22 06:00 04/14/22 05:07 Nitroglycerin 0.2 Mg Patch 24hr TD Not Given QDAY@0600 SEGUNDO Ondansetron HCl 4 mg 04/02/22 23:53 Ondansetron 4 Mg/2 Ml Inj IV Q8H PRN Nausea And Vomiting Polyethylene Glycol 17 gm 04/08/22 10:00 04/14/22 10:03 Polyethylene Glycol 3350 17 Gm Powder PO 17 gm QDAY SEGUNDO Administration Quetiapine Fumarate 100 mg 04/12/22 14:00 04/14/22 05:07 Quetiapine 25 Mg Tab PO 100 mg 0600,1600 SEGUNDO Administration Quetiapine Fumarate 50 mg 04/12/22 14:01 04/13/22 20:59 Quetiapine 25 Mg Tab PO 50 mg QHS SEGUNDO Administration Senna 17.6 mg 04/03/22 22:00 04/14/22 10:03 Sennosides Oral Liqd 8.8 Mg/5 Ml Oral Liqd PO 17.6 mg Q12HR SEGUNDO Administration Sodium Chloride 10 ml 04/03/22 10:00 04/14/22 10:03 Sodium Chloride 0.9% 10 Ml Flush Syringe IV 10 ml BID SEGUNDO Administration Sodium Chloride 10 ml 04/02/22 23:53 Sodium Chloride 0.9% 10 Ml Flush Syringe IV PRN PRN LINE FLUSH Nutrition/Malnutrition Assess - Dietary Evaluation Nutrition/Malnutrition Findings: Nutrition Notes Start: 04/04/22 13:13 Freq: Status: Active Protocol: Document 04/13/22 12:41 COLLEEN (Rec: 04/13/22 13:09 COLLEEN [id number]) Nutrition Notes Initial or Follow up Reassessment Current Diagnosis Coronary Artery Disease, Respiratory Failure, Malnutrition Other Pertinent Diagnosis HCAP, HFpEF, ALS, Pleural Effusion, R-Lung Collapse, Hypotension, ... Current Diet NPO (since 04/13 00:01). Labs/Tests 04/13: Cl 93.9, CO2 39, Crea < 0.2, Phos 1.9. Pertinent Medications 04/13: Nutritionally unremarkable. Height 5 ft 4.8 in Weight 46.8 kg [place] Body Weight (kg) 61.27 BMI 17.2 Weight change and time frame No body weight change reported in 9 days. Weight Status Underweight Subjective/Other Information RD consult for routine F/U on TF tolerance/continuation. Pt currently on NPO. Pt is on Mechanical ventilation, O2 saturation @ 96%, according to Physical Assessment Histroy notes. Pt is awake and tracking, but unable to follow simple commands, according to Progress notes. Procedure planned for 04/13: Trach/PEG, but with moderate to high risk of associated cardiac event, according to Progress notes. Pt to be placed on LTAC facility after procedure. Percent of energy/protein needs met: Pt currently on NPO. Prescribed TF-Vital AF 1.2 Inderjit @ 50 ml/hr provides for energy/protein needs (1,450 Kcal/91 g) during LOS, 98% Kcal; 100% AA. Burn Absent Trauma Absent GI Symptoms Constipation Difficulty In Swallowing,Chewing Food Allergy No Skin Integrity/Comment Sacral skin tear. Current % PO Other Minimum of two criteria No #1 Nutrition Diagnosis Inadequate oral intake Comments: Procedure planned for 04/13: Trach/PEG, but with moderate to high risk of associated cardiac event, according to Progress notes. Diagnosis Progress(for reassessment Continues documentation) Is patient on ventilator? Yes Is Patient Ambulatory and/or Out of Bed No REE-([facility]-confined to bed) [phone] Calculation Used for Recommendations [facility] Additional Notes Protein: 1.2-2 g/Kg IBW; 73- 122 g/day. Fluids: 1 ml/Kcal, or as per MD. Nutrition Intervention Nutrition Support: When pertinent, resume TF- Vital AF 1.2 Inderjit @ 50 ml/hr. Flush: 80 ml water Q 4 hr, or as per MD. Kcal 1,450 Protein (gm) 91 Carbohydrates (gm) 134 Fat (gm) 65 Fluid (mL) 980 Fiber (gm) 6 % RDI: 98% Kcal; 100% AA. Goal #1 Provide at least 75% of energy /protein needs through Enteral Feeding during LOS. Goal #2 Maintain body weight within +/ -3% of admission body weight during LOS. Follow-Up By: 04/20/22 Additional Comments When pertinent, continue monitoring TF tolerance and BM . <DIXIE BROWN - Last Filed: 04/15/22 07:12> Assessment and Plan Assessment and plan: I saw and evaluated the patient. I agree with the findings and the plan of care as documented in the Nurse Practitioner's~note, with the following corrections and additions. Hospitalist Physical - Constitutional Vitals: Temp Pulse Resp BP Pulse Ox 98.8 F 106 H 21 117/69 99 04/15/22 04:00 04/15/22 06:45 04/15/22 06:45 04/15/22 06:45 04/15/22 06:45 HEART Score - HEART Score Troponin: Troponin T 0.031 ng/mL (0.00-0.029) H 04/08/22 17:47 Results - Labs CBC & Chem 7: 04/15/22 04:44 04/15/22 04:44 Labs: Laboratory Last Values WBC 13.0 K/mm3 (4.5-11.0) H 04/15/22 04:44 RBC 3.19 M/mm3 (3.65-5.03) L 04/15/22 04:44 Hgb 9.6 gm/dl (11.8-15.2) L 04/15/22 04:44 Hct 30.2 % (35.5-45.6) L 04/15/22 04:44 MCV 95 fl (84-94) H 04/15/22 04:44 MCH 30 pg (28-32) 04/15/22 04:44 MCHC 32 % (32-34) 04/15/22 04:44 RDW 13.8 % (13.2-15.2) 04/15/22 04:44 Plt Count 456 K/mm3 (140-440) H 04/15/22 04:44 Lymph % (Auto) 4.3 % (13.4-35.0) L 04/07/22 03:51 [place] % (Auto) 8.8 % (0.0-7.3) H 04/07/22 03:51 Eos % (Auto) 0.1 % (0.0-4.3) 04/07/22 03:51 Baso % (Auto) 0.2 % (0.0-1.8) 04/07/22 03:51 Lymph # (Auto) 0.6 K/mm3 (1.2-5.4) L 04/07/22 03:51 [place] # (Auto) 1.3 K/mm3 (0.0-0.8) H 04/07/22 03:51 Eos # (Auto) 0.0 K/mm3 (0.0-0.4) 04/07/22 03:51 Baso # (Auto) 0.0 K/mm3 (0.0-0.1) 04/07/22 03:51 Add Manual Diff Complete 04/02/22 19:39 Total Counted 100 04/02/22 19:39 Seg Neutrophils % 86.6 % (40.0-70.0) H 04/07/22 03:51 Seg Neuts % (Manual) 94.0 % (40.0-70.0) H 04/02/22 19:39 Band Neutrophils % 0 % 04/02/22 19:39 Lymphocytes % (Manual) 1.0 % (13.4-35.0) L 04/02/22 19:39 Reactive Lymphs % (Man) 0 % 04/02/22 19:39 Monocytes % (Manual) 5.0 % (0.0-7.3) 04/02/22 19:39 Eosinophils % (Manual) 0 % (0.0-4.3) 04/02/22 19:39 Basophils % (Manual) 0 % (0.0-1.8) 04/02/22 19:39 Metamyelocytes % 0 % 04/02/22 19:39 Myelocytes % 0 % 04/02/22 19:39 Promyelocytes % 0 % 04/02/22 19:39 Blast Cells % 0 % 04/02/22 19:39 Nucleated RBC % Not Reportable 04/02/22 19:39 Seg Neutrophils # 12.7 K/mm3 (1.8-7.7) H 04/07/22 03:51 Seg Neutrophils # Man 13.4 K/mm3 (1.8-7.7) H 04/02/22 19:39 Band Neutrophils # 0.0 K/mm3 04/02/22 19:39 Lymphocytes # (Manual) 0.1 K/mm3 (1.2-5.4) L 04/02/22 19:39 Abs React Lymphs (Man) 0.0 K/mm3 04/02/22 19:39 Monocytes # (Manual) 0.7 K/mm3 (0.0-0.8) 04/02/22 19:39 Eosinophils # (Manual) 0.0 K/mm3 (0.0-0.4) 04/02/22 19:39 Basophils # (Manual) 0.0 K/mm3 (0.0-0.1) 04/02/22 19:39 Metamyelocytes # 0.0 K/mm3 04/02/22 19:39 Myelocytes # 0.0 K/mm3 04/02/22 19:39 Promyelocytes # 0.0 K/mm3 04/02/22 19:39 Blast Cells # 0.0 K/mm3 04/02/22 19:39 WBC Morphology Not Reportable 04/02/22 19:39 Hypersegmented Neuts Not Reportable 04/02/22 19:39 Hyposegmented Neuts Not Reportable 04/02/22 19:39 Hypogranular Neuts Not Reportable 04/02/22 19:39 Smudge Cells Not Reportable 04/02/22 19:39 Toxic Granulation Not Reportable 04/02/22 19:39 Toxic Vacuolation Not Reportable 04/02/22 19:39 Dohle Bodies Not Reportable 04/02/22 19:39 Pelger-Huet Anomaly Not Reportable 04/02/22 19:39 Terry Rods Not Reportable 04/02/22 19:39 Platelet Estimate Consistent w auto 04/02/22 19:39 Clumped Platelets Not Reportable 04/02/22 19:39 Plt Clumps, EDTA Not Reportable 04/02/22 19:39 Large Platelets Not Reportable 04/02/22 19:39 Giant Platelets Not Reportable 04/02/22 19:39 Platelet Satelliting Not Reportable 04/02/22 19:39 Plt Morphology Comment Not Reportable 04/02/22 19:39 RBC Morphology Not Reportable 04/02/22 19:39 Dimorphic RBCs Not Reportable 04/02/22 19:39 Polychromasia Not Reportable 04/02/22 19:39 Hypochromasia Not Reportable 04/02/22 19:39 Poikilocytosis Not Reportable 04/02/22 19:39 Anisocytosis 1+ 04/02/22 19:39 Microcytosis Not Reportable 04/02/22 19:39 Macrocytosis Not Reportable 04/02/22 19:39 Spherocytes Not Reportable 04/02/22 19:39 Pappenheimer Bodies Not Reportable 04/02/22 19:39 Sickle Cells Not Reportable 04/02/22 19:39 Target Cells Not Reportable 04/02/22 19:39 Tear Drop Cells Not Reportable 04/02/22 19:39 Ovalocytes Not Reportable 04/02/22 19:39 Helmet Cells Not Reportable 04/02/22 19:39 Patricio-[place] Bodies Not Reportable 04/02/22 19:39 [place] Rings Not Reportable 04/02/22 19:39 [place] Cells Not Reportable 04/02/22 19:39 Bite Cells Not Reportable 04/02/22 19:39 Crenated Cell Not Reportable 04/02/22 19:39 Elliptocytes Not Reportable 04/02/22 19:39 Acanthocytes (Spur) Not Reportable 04/02/22 19:39 Rouleaux Not Reportable 04/02/22 19:39 Hemoglobin C Crystals Not Reportable 04/02/22 19:39 Schistocytes Not Reportable 04/02/22 19:39 Malaria parasites Not Reportable 04/02/22 19:39 [place] Bodies Not Reportable 04/02/22 19:39 Hem Pathologist Commnt No 04/02/22 19:39 PT 13.6 Sec. (12.2-14.9) 04/13/22 04:30 INR 0.94 (0.87-1.13) 04/13/22 04:30 APTT 35.7 Sec. (24.2-36.6) 04/07/22 03:51 ABG pH 7.383 pH Units (7.350-7.450) 04/14/22 09:10 ABG pCO2 76.5 mm Hg 04/14/22 09:10 ABG pO2 66.9 mm Hg (80.0-90.0) L 04/14/22 09:10 ABG HCO3 44.5 mmol/L (20.0-26.0) H 04/14/22 09:10 ABG O2 Saturation 96.4 % (95.0-99.0) 04/14/22 09:10 ABG O2 Content 10.9 (0.0-44) 04/14/22 09:10 ABG Base Excess 17.2 mmol/L (-2.0-3.0) H 04/14/22 09:10 ABG Hemoglobin 8.1 gm/dl (14.0-18.0) L 04/14/22 09:10 ABG Carboxyhemoglobin 1.3 % (0.0-5.0) 04/14/22 09:10 ABG Methemoglobin 0.3 % (0.0-1.5) 04/14/22 09:10 Oxyhemoglobin 94.8 % (95.0-99.0) L 04/14/22 09:10 FiO2 55 % 04/14/22 09:10 Sodium 142 mmol/L (137-145) 04/15/22 04:44 Potassium 3.9 mmol/L (3.6-5.0) 04/15/22 04:44 Chloride 95.5 mmol/L (98-107) L 04/15/22 04:44 Carbon Dioxide 37 mmol/L (22-30) H 04/15/22 04:44 Anion Gap 13 mmol/L 04/15/22 04:44 BUN 14 mg/dL (9-20) 04/15/22 04:44 Creatinine < 0.2 mg/dL (0.8-1.3) L 04/15/22 04:44 Estimated GFR > 60 ml/min 04/15/22 04:44 BUN/Creatinine Ratio 70 % 04/15/22 04:44 Glucose 89 mg/dL (75-100) 04/15/22 04:44 POC Glucose 134 mg/dL (70-105) H 04/13/22 17:39 Lactic Acid 1.90 mmol/L (0.7-2.0) 04/02/22 19:39 Calcium 8.7 mg/dL (8.4-10.2) 04/15/22 04:44 Phosphorus 3.40 mg/dL (2.5-4.5) 04/15/22 04:44 Magnesium 1.90 mg/dL (1.7-2.3) 04/15/22 04:44 Total Bilirubin 0.80 mg/dL (0.1-1.2) 04/02/22 19:39 AST 15 units/L (5-40) 04/02/22 19:39 ALT 9 units/L (7-56) 04/02/22 19:39 Alkaline Phosphatase 43 units/L (35-129) 04/02/22 19:39 Total Creatine Kinase 46 units/L (55-170) L 04/08/22 17:47 CK-MB (CK-2) 2.6 ng/mL (0.0-4.0) 04/08/22 17:47 CK-MB (CK-2) Rel Index 5.6 (0-4) H 04/08/22 17:47 Troponin T 0.031 ng/mL (0.00-0.029) H 04/08/22 17:47 C-Reactive Protein 31.60 mg/dL (0.00-1.30) H 04/04/22 04:18 Total Protein 4.6 g/dL (6.3-8.2) L 04/02/22 19:39 Albumin 2.7 g/dL (3.9-5) L 04/02/22 19:39 Albumin/Globulin Ratio 1.4 % 04/02/22 19:39 Triglycerides 80 mg/dL (2-149) 04/02/22 19:39 Cholesterol 94 mg/dL (50-199) 04/02/22 19:39 LDL Cholesterol Direct 27 mg/dL (50-130) L 04/02/22 19:39 HDL Cholesterol 47 mg/dL (40-59) 04/02/22 19:39 Cholesterol/HDL Ratio 2.00 % 04/02/22 19:39 Procalcitonin 0.08 ng/mL (<0.15) 04/04/22 04:18 Urine Color Aracely (Yellow) 04/05/22 17:45 Urine Turbidity Cloudy (Clear) 04/05/22 17:45 Urine pH 5.0 (5.0-7.0) 04/05/22 17:45 Ur Specific [place] 1.021 (1.003-1.030) 04/05/22 17:45 Urine Protein 30 mg/dl mg/dL (Negative) 04/05/22 17:45 Urine Glucose (UA) Neg mg/dL (Negative) 04/05/22 17:45 Urine Ketones Tr mg/dL (Negative) 04/05/22 17:45 Urine Blood Sm (Negative) 04/05/22 17:45 Urine Nitrite Neg (Negative) 04/05/22 17:45 Urine Bilirubin Neg (Negative) 04/05/22 17:45 Urine Urobilinogen < 2.0 mg/dL (<2.0) 04/05/22 17:45 Ur Leukocyte Esterase Tr (Negative) 04/05/22 17:45 Urine WBC (Auto) 8.0 /HPF (0.0-6.0) H 04/05/22 17:45 Urine RBC (Auto) 3.0 /HPF (0.0-6.0) 04/05/22 17:45 U Epithel Cells (Auto) 2.0 /HPF (0-13.0) 04/05/22 17:45 Urine Bacteria (Auto) 1+ /HPF (Negative) 04/02/22 Unknown Hyaline Casts 1 /LPF 04/05/22 17:45 Urine Mucus 3+ /HPF 04/05/22 17:45 Nasal Screen MRSA (PCR) Negative (Negative) 04/05/22 12:37 Vancomycin Trough 6.0 ug/mL (5.0-20.0) 04/05/22 18:53 Coronavirus (PCR) Negative (Negative) 04/07/22 14:52 Perez/IV: Voiding Method Condom Catheter Active Medications - Current Medications Current Medications: Generic Name Dose Route Start Last Admin Trade Name Freq PRN Reason Stop Dose Admin Acetaminophen 650 mg 04/02/22 23:53 04/11/22 17:31 Acetaminophen 325 Mg Tab PO 650 mg Q6H PRN Administration Pain MILD(1-3)/Fever >100.5/FAITH Albuterol 2.5 mg 04/06/22 16:00 04/14/22 23:24 Albuterol 2.5 Mg/3 Ml Nebu IH 2.5 mg Q8HRT SEGUNDO Administration Bisacodyl 10 mg 04/07/22 09:44 04/12/22 10:06 Bisacodyl 10 Mg Rect Supp MA 10 mg QDAY PRN Administration Constipation Dextrose 50 ml 04/06/22 17:54 Dextrose 50% In Water (25gm) 50 Ml Syringe IV Q30MIN PRN Hypoglycemia Protocol Docusate Sodium 100 mg 04/03/22 15:00 04/14/22 22:20 Docusate Sodium 100 Mg/10 Ml Oral Liqd PO Not Given BID [facility] Famotidine 20 mg 04/06/22 10:00 04/14/22 22:23 Famotidine 20 Mg Tab FEEDTUBE Not Given BID SEGUNDO Fentanyl 50 mcg 04/04/22 15:56 04/15/22 01:44 Fentanyl 100 Mcg/2 Ml Inj IV 50 mcg Q2HR PRN Administration For CPOT of greater than 2 Heparin Sodium (Porcine) 5,000 unit 04/03/22 06:00 04/15/22 06:21 Heparin 5,000 Unit/1 Ml Vial SUB-Q 5,000 unit Q8HR SEGUNDO Administration NORepinephrine/NS 8 MG-250 ML 8 mg in 250 mls @ 3.75 mls/hr 04/02/22 22:00 04/10/22 09:20 Norepinephrine/Ns 8 Mg-250 Ml (Double Conc) IV 0 mcg/min TITRATE SEGUNDO 0 mls/hr Titration Protocol 2 MCG/MIN Dexmedetomidine HCl 400 mcg/ 104 mls @ 2.434 mls/hr 04/03/22 07:00 04/14/22 14:55 Sodium Chloride IV 0 mcg/kg/hr TITRATE SEGUNDO 0 mls/hr Titration Protocol 0.2 MCG/KG/HR Fentanyl Citrate 2,000 mcg in 100 mls @ 2.34 mls/hr 04/05/22 11:00 04/14/22 14:55 Fentanyl Drip Premix IV 0 mcg/kg/hr TITR SEGUNDO 0 mls/hr Titration Protocol 1 MCG/KG/HR Cefepime HCl 2 gm in 100 mls @ 200 mls/hr 04/12/22 13:00 04/15/22 01:39 Cefepime/Ns 2 Gm/100 Ml IV 04/15/22 12:59 200 mls/hr Q12H SEGUNDO Administration Protocol Insulin Human Regular 0 units 04/06/22 18:00 04/15/22 06:19 Insulin Regular, Human 100 Units/1 Ml SUB-Q Not Given Q6H SEGUNDO Protocol Magnesium Hydroxide 30 ml 04/02/22 23:53 Magnesium Hydroxide (Mom) Oral Liqd Udc PO Q4H PRN Constipation Metoprolol Tartrate 12.5 mg 04/11/22 08:55 04/15/22 06:19 Metoprolol Tartrate 25 Mg Tab FEEDTUBE Not Given Q6HR [facility] Nitroglycerin 0.2 mg 04/11/22 06:00 04/14/22 05:07 Nitroglycerin 0.2 Mg Patch 24hr TD Not Given QDAY@0600 [facility] Ondansetron HCl 4 mg 04/02/22 23:53 Ondansetron 4 Mg/2 Ml Inj IV Q8H PRN Nausea And Vomiting Polyethylene Glycol 17 gm 04/08/22 10:00 04/14/22 10:03 Polyethylene Glycol 3350 17 Gm Powder PO 17 gm QDAY SEGUNDO Administration Quetiapine Fumarate 100 mg 04/12/22 14:00 04/15/22 06:21 Quetiapine 25 Mg Tab PO Not Given 0600,1600 [facility] Quetiapine Fumarate 50 mg 04/12/22 14:01 04/14/22 22:23 Quetiapine 25 Mg Tab PO Not Given QHS SEGUNDO Senna 17.6 mg 04/03/22 22:00 04/14/22 22:20 Sennosides Oral Liqd 8.8 Mg/5 Ml Oral Liqd PO Not Given Q12HR SEGUNDO Sodium Chloride 10 ml 04/03/22 10:00 04/14/22 23:59 Sodium Chloride 0.9% 10 Ml Flush Syringe IV 10 ml BID SEGUNDO Administration Sodium Chloride 10 ml 04/02/22 23:53 Sodium Chloride 0.9% 10 Ml Flush Syringe IV PRN PRN LINE FLUSH Nutrition/Malnutrition Assess - Dietary Evaluation Nutrition/Malnutrition Findings: Nutrition Notes Start: 04/04/22 13:13 Freq: Status: Active Protocol: Document 04/13/22 12:41 COLLEEN (Rec: 04/13/22 13:09 COLLEEN [email or web address]) Nutrition Notes Initial or Follow up Reassessment Current Diagnosis Coronary Artery Disease, Respiratory Failure, Malnutrition Other Pertinent Diagnosis HCAP, HFpEF, ALS, Pleural Effusion, R-Lung Collapse, Hypotension, ... Current Diet NPO (since 04/13 00:01). Labs/Tests 04/13: Cl 93.9, CO2 39, Crea < 0.2, Phos 1.9. Pertinent Medications 04/13: Nutritionally unremarkable. Height 5 ft 4.8 in Weight 46.8 kg [place] Body Weight (kg) 61.27 BMI 17.2 Weight change and time frame No body weight change reported in 9 days. Weight Status Underweight Subjective/Other Information RD consult for routine F/U on TF tolerance/continuation. Pt currently on NPO. Pt is on Mechanical ventilation, O2 saturation @ 96%, according to Physical Assessment Histroy notes. Pt is awake and tracking, but unable to follow simple commands, according to Progress notes. Procedure planned for 04/13: Trach/PEG, but with moderate to high risk of associated cardiac event, according to Progress notes. Pt to be placed on LTAC facility after procedure. Percent of energy/protein needs met: Pt currently on NPO. Prescribed TF-Vital AF 1.2 Inderjit @ 50 ml/hr provides for energy/protein needs (1,450 Kcal/91 g) during LOS, 98% Kcal; 100% AA. Burn Absent Trauma Absent GI Symptoms Constipation Difficulty In Swallowing,Chewing Food Allergy No Skin Integrity/Comment Sacral skin tear. Current % PO Other Minimum of two criteria No #1 Nutrition Diagnosis Inadequate oral intake Comments: Procedure planned for 04/13: Trach/PEG, but with moderate to high risk of associated cardiac event, according to Progress notes. Diagnosis Progress(for reassessment Continues documentation) Is patient on ventilator? Yes Is Patient Ambulatory and/or Out of Bed No REE-([facility]-confined to bed) [phone] Calculation Used for Recommendations [facility] Additional Notes Protein: 1.2-2 g/Kg IBW; 73- 122 g/day. Fluids: 1 ml/Kcal, or as per MD. Nutrition Intervention Nutrition Support: When pertinent, resume TF- Vital AF 1.2 Inderjit @ 50 ml/hr. Flush: 80 ml water Q 4 hr, or as per MD. Kcal 1,450 Protein (gm) 91 Carbohydrates (gm) 134 Fat (gm) 65 Fluid (mL) 980 Fiber (gm) 6 % RDI: 98% Kcal; 100% AA. Goal #1 Provide at least 75% of energy /protein needs through Enteral Feeding during LOS. Goal #2 Maintain body weight within +/ -3% of admission body weight during LOS. Follow-Up By: 04/20/22 Additional Comments When pertinent, continue monitoring TF tolerance and BM .
--- NOTE | 2022-04-14 13:51 | Progress Note ---
Assessment and Plan - Patient Problems (1) Respiratory failure Current Visit: Yes Status: Acute Plan to address problem: Patient presented with acute respiratory failure, with chest x-ray showing total whiteout of the right lung, due to acute pneumonia, large right pleural effusion and collapse of the right lung. Continue supportive management, antibiotics. (2) Acute coronary syndrome Current Visit: Yes Status: Acute Plan to address problem: The patient's interval ECGs while in the ICU showed dynamic changes of anterior wall ischemia or infarction. Patient has severe comorbidities including progressive total paralysis of ALS, and intercurrent respiratory failure with large right pleural effusion and total collapse of the right lung. Currently assessed as a poor candidate for aggressive cardiac management due to the multiple severe acute and chronic comorbidities. He has been placed on conservative, empiric coronary artery disease medical therapy. A trach PEG procedure is planned, moderate to high risk of associated cardiac event. Subjective Date of service: 04/14/22 Principal diagnosis: Ac and ch hypercapnic and hypoxemic Resp Failure; ALS; HCAP; Sepsis; NSTEMI Interval history: Patient has eyes open, awake on the vent. Heart rate is 125, sinus tachycardia, blood pressure 137 systolic. Objective Vital Signs Temp Pulse Pulse Pulse Resp Resp BP 04/14/22 13:00 90 14 110/71 04/14/22 12:45 89 14 111/70 04/14/22 12:30 99 H 14 111/70 04/14/22 12:15 93 H 14 108/62 04/14/22 12:00 88 88 14 108/62 04/14/22 11:47 98.3 F 04/14/22 11:45 111 H 14 118/76 04/14/22 11:30 111 H 14 118/76 04/14/22 11:15 118 H 14 116/70 04/14/22 11:00 114 H 14 116/70 04/14/22 10:45 119 H 14 121/78 04/14/22 10:30 117 H 14 121/78 04/14/22 10:15 128 H 14 137/87 04/14/22 10:00 129 H 14 137/87 04/14/22 09:45 132 H 14 132/100 04/14/22 09:30 127 H 16 132/100 04/14/22 09:15 122 H 14 126/82 04/14/22 09:00 110 H 14 126/82 04/14/22 08:45 102 H 14 115/71 04/14/22 08:30 88 14 110/71 04/14/22 08:15 90 14 115/71 04/14/22 08:00 99.3 F 98 H 98 H 14 115/71 04/14/22 07:45 106 H 14 111/70 04/14/22 07:30 104 H 14 118/74 04/14/22 07:23 96 H 14 04/14/22 07:15 104 H 14 111/70 04/14/22 07:11 105 H 123/74 04/14/22 07:00 107 H 14 111/70 04/14/22 06:46 106 H 14 122/83 04/14/22 06:30 129 H 14 122/83 04/14/22 06:15 90 14 123/74 04/14/22 06:00 105 H 14 123/74 04/14/22 05:45 91 H 14 120/77 04/14/22 05:30 98 H 14 120/77 04/14/22 05:15 117 H 14 142/93 04/14/22 05:00 118 H 14 142/93 04/14/22 04:45 111 H 14 138/89 04/14/22 04:30 110 H 14 138/89 04/14/22 04:21 123 H 131/86 04/14/22 04:15 112 H 14 131/86 04/14/22 04:00 99.4 F 114 H 14 131/86 04/14/22 03:45 114 H 14 135/90 04/14/22 03:30 114 H 14 135/90 04/14/22 03:15 112 H 14 132/86 04/14/22 03:03 116 H 04/14/22 03:01 118 H 14 04/14/22 03:00 115 H 15 132/86 04/14/22 02:45 116 H 14 142/93 04/14/22 02:30 130 H 14 142/93 04/14/22 02:15 116 H 14 136/88 04/14/22 02:00 117 H 14 131/88 04/14/22 01:45 118 H 15 136/88 04/14/22 01:30 116 H 14 136/88 04/14/22 01:15 117 H 15 125/86 04/14/22 01:00 117 H 14 125/86 04/14/22 00:45 117 H 14 124/85 04/14/22 00:30 118 H 14 124/85 04/14/22 00:15 125 H 14 127/90 04/14/22 00:00 99.3 F 117 H 123 H 15 14 127/90 04/13/22 23:58 117 H 127/90 04/13/22 23:49 120 H 118 H 14 04/13/22 23:45 123 H 14 132/86 04/13/22 23:43 118 H 15 132/86 04/13/22 23:30 121 H 14 132/86 04/13/22 23:15 123 H 15 131/86 04/13/22 23:00 117 H 14 131/86 04/13/22 22:45 120 H 14 130/82 04/13/22 22:30 119 H 14 130/82 04/13/22 22:15 121 H 14 122/85 04/13/22 22:00 116 H 15 122/85 04/13/22 21:45 121 H 15 130/82 04/13/22 21:30 116 H 14 130/82 04/13/22 21:15 121 H 15 124/80 04/13/22 21:00 118 H 15 124/80 04/13/22 20:45 118 H 15 120/79 04/13/22 20:30 115 H 14 120/79 04/13/22 20:26 118 H 120/79 04/13/22 20:15 120 H 16 125/85 04/13/22 20:00 118 H 15 125/85 04/13/22 19:52 97.7 F 04/13/22 19:51 118 H 118 H 14 04/13/22 19:45 115 H 15 131/83 04/13/22 19:30 118 H 14 131/83 04/13/22 19:15 122 H 14 126/82 04/13/22 19:00 113 H 14 126/82 04/13/22 18:45 115 H 14 127/86 04/13/22 18:30 108 H 14 127/86 04/13/22 18:15 107 H 14 138/90 04/13/22 18:00 109 H 15 138/90 04/13/22 17:56 106 H 04/13/22 17:45 110 H 14 150/90 04/13/22 17:30 111 H 16 150/90 04/13/22 17:15 106 H 15 139/84 04/13/22 17:00 110 H 15 139/84 04/13/22 16:45 106 H 15 147/83 04/13/22 16:35 95 H 147/83 04/13/22 16:30 80 14 147/83 04/13/22 16:15 94 H 16 140/88 04/13/22 16:00 97 F L 99 H 108 H 109 H 18 18 140/88 04/13/22 15:45 98 H 15 135/84 04/13/22 15:30 95 H 16 130/83 04/13/22 15:15 97 H 18 135/84 04/13/22 15:00 110 H 16 135/84 04/13/22 14:45 93 H 15 141/84 04/13/22 14:30 88 15 144/76 04/13/22 14:15 112 H 15 141/84 04/13/22 14:00 93 H 15 141/84 Pulse Ox 04/14/22 13:00 95 04/14/22 12:45 94 04/14/22 12:30 94 04/14/22 12:15 94 04/14/22 12:00 95 04/14/22 11:47 04/14/22 11:45 94 04/14/22 11:30 94 04/14/22 11:15 93 04/14/22 11:00 94 04/14/22 10:45 93 04/14/22 10:30 92 04/14/22 10:15 93 04/14/22 10:00 93 04/14/22 09:45 94 04/14/22 09:30 95 04/14/22 09:15 95 04/14/22 09:00 95 04/14/22 08:45 93 04/14/22 08:30 91 04/14/22 08:15 93 04/14/22 08:00 93 04/14/22 07:45 93 04/14/22 07:30 93 04/14/22 07:23 04/14/22 07:15 93 04/14/22 07:11 92 04/14/22 07:00 92 04/14/22 06:46 92 04/14/22 06:30 90 04/14/22 06:15 90 04/14/22 06:00 90 04/14/22 05:45 89 04/14/22 05:30 87 04/14/22 05:15 04/14/22 05:00 97 04/14/22 04:45 96 04/14/22 04:30 98 04/14/22 04:21 96 04/14/22 04:15 95 04/14/22 04:00 92 04/14/22 03:45 92 04/14/22 03:30 95 04/14/22 03:15 92 04/14/22 03:03 04/14/22 03:01 96 04/14/22 03:00 94 04/14/22 02:45 91 04/14/22 02:30 92 04/14/22 02:15 95 04/14/22 02:00 93 04/14/22 01:45 92 04/14/22 01:30 95 04/14/22 01:15 96 04/14/22 01:00 88 04/14/22 00:45 95 04/14/22 00:30 94 04/14/22 00:15 95 04/14/22 00:00 94 04/13/22 23:58 94 04/13/22 23:49 96 04/13/22 23:45 94 04/13/22 23:43 95 04/13/22 23:30 95 04/13/22 23:15 94 04/13/22 23:00 94 04/13/22 22:45 93 04/13/22 22:30 95 04/13/22 22:15 94 04/13/22 22:00 95 04/13/22 21:45 95 04/13/22 21:30 95 04/13/22 21:15 96 04/13/22 21:00 94 04/13/22 20:45 95 04/13/22 20:30 91 04/13/22 20:26 91 04/13/22 20:15 89 04/13/22 20:00 92 04/13/22 19:52 04/13/22 19:51 96 04/13/22 19:45 99 04/13/22 19:30 98 04/13/22 19:15 99 04/13/22 19:00 98 04/13/22 18:45 98 04/13/22 18:30 98 04/13/22 18:15 98 04/13/22 18:00 99 04/13/22 17:56 04/13/22 17:45 98 04/13/22 17:30 95 04/13/22 17:15 95 04/13/22 17:00 94 04/13/22 16:45 87 04/13/22 16:35 92 04/13/22 16:30 91 04/13/22 16:15 89 04/13/22 16:00 91 04/13/22 15:45 95 04/13/22 15:30 95 04/13/22 15:15 04/13/22 15:00 96 04/13/22 14:45 97 04/13/22 14:30 97 04/13/22 14:15 98 04/13/22 14:00 98 - Physical Examination General: Other (Intubated on mechanical ventilator) HEENT: Positive: PERRL, Normocephaly, Other (ET-tube in place) Neck: Positive: neck supple, trachea midline (intubated). Negative: JVD/HJR Cardiac: Positive: Regular Rhythm Lungs: Positive: Decreased Breath Sounds Neuro: Positive: Other (Sedated, on the vent) Abdomen: Positive: Soft Skin: Positive: Clear Extremities: Present: Other (TR.EDEMA). Absent: edema (NO) - Labs and Meds CBC 04/14/22 Range/Units 05:03 WBC 15.6 H (4.5-11.0) K/mm3 RBC 3.02 L (3.65-5.03) M/mm3 Hgb 9.3 L (11.8-15.2) gm/dl Hct 28.8 L (35.5-45.6) % Plt Count 342 (140-440) K/mm3 Comprehensive Metabolic Panel 04/14/22 Range/Units 05:03 Sodium 140 (137-145) mmol/L Potassium 4.2 (3.6-5.0) mmol/L Chloride 93.8 L (98-107) mmol/L Carbon Dioxide 42 H* (22-30) mmol/L BUN 17 (9-20) mg/dL Creatinine < 0.2 L (0.8-1.3) mg/dL Glucose 117 H (75-100) mg/dL Calcium 8.6 (8.4-10.2) mg/dL - Allied health notes Allied health notes reviewed: nursing
[2022-04-14] MEDS ORDERED: ROCURONIUM 50 MG/5 ML INJ IV ONE (14:22)
--- NOTE | 2022-04-14 15:03 | Anesthesia Consultation ---
Anesthesia Consult and Med Hx Date of service: 04/14/22 - Airway Intubation Access Assessment: Possibly Difficult (prev intubation by ED MD; intubated since 04/02/22) - Pre-Operative Health Status ASA Pre-Surgery Classification: ASA4 Proposed Anesthetic Plan: General - Pulmonary Hx Respiratory Symptoms: Yes (acute hypoxic resp failure, vent dependent) Hx Pneumonia: Yes - Cardiovascular System Hx Hypertension: No (prior hx; septic this admission off pressors since 04/09/22) Hx Coronary Artery Disease: Yes (w/ NSTEMI, EF 40-45%; conservative cardiac management) Hx Percutaneous Transluminal Coronary Angioplasty (PTCA): No - Central Nervous System Hx Neuromuscular Disorder: Yes (ALS) - Endocrine Hx End Stage Renal Disease: No Hx Liver Disease: No Hx Non-Insulin Dependent Diabetes: No - Hematic Hx Anemia: Yes - Additional Comments Anesthesia Medical History Comments: Scheduled for perc trach/PEG.
--- NOTE | 2022-04-14 15:05 | Anesthesia Day of Surgery ---
Anesthesia Day of Surgery - Day of Surgery Patient Examined: Yes Patient H&P Reviewed: Yes Patient is NPO: Yes
[2022-04-14] MEDS ORDERED: fentaNYL 100 MCG/2 ML INJ ONE (16:04)
--- NOTE | 2022-04-14 16:59 | Procedure Note ---
Date of procedure: 04/14/22 Pre-op diagnosis: 1) Chronic resp failure 2) Oropharyngeal dysphagia Post-op diagnosis: same Procedure: 1) Percutaneous tracheostomy 2) PEG Description of procedure: Pt was placed supine on the OR table. GETA was administered. A shoulder roll was placed to facilitate maximal extension of the head/neck. Lower face, neck and upper chest were prepped and draped. Skin and SQ tissue at the proposed incision site were infiltrated with 5 ml of 1% Lidocai ne with epinephrine. A 2.5 cm transverse incision was made 3 cm above the sternal notch. Hemostasis of bleeding was obtained with the Bovie. The ETT was withdrawn to 18 cm. The introducer needle was advanced into the trachea on the first pass as confirmed by aspiration of air and bronchoscopic visualization. The guide wire was advanced into the distal trachea and the introducer needle removed. Trachea was dilated over the guide wire with the small dilator. The trachea was further dilated over the guide wire with the large, graduated dilator up to the skin level line. An 8.5 percutaneous tracheostomy tube was then inserted into the trachea without difficulty. The tracheostomy balloon was inflated. The tracheostomy was attached to the ventilator which revealed good end tidal CO2. Tracheostomy cuff was secured to the skin with 2 interrupted sutures of 2-0 Prolene. The tracheostomy cuff was additionally secured via the Velcro strap about the neck. A slitted gauze was placed posterior the the tracheostomy tube. The ETT and OG tube were removed and a bite block placed between the pt's incisors. Endoscope was introduced into the oropharynx and the esophagus intubated under direct vision. Stomach was entered and was maximally inflated. An appropriate location for PEG tube placement was selected. Skin and SQ tissue at the selected location were infiltrated with 4 ml of 1% Lidocaine with epinephrine. A small skin incision was made. The introducer needle was passed into the stomach on the first pass. Guide wire was inserted into the stomach. The guide wire was grasped with the snare and the guide wire removed via the oropharynx. The PEG tubing was attached to the guide wire. External traction was applied to the guide wire via the LUQ until the internal bolster was snug up against the gastric and abdominal weiss. The external bolster, clamp and PEG plug were placed. Repeat gastroscopy revealed the internal bolster in good position with no bleeding from the gastric puncture site. Insufflated air was aspirated and the scope withdrawn. The final position of the external bolster was at 2 cm at skin level. Betadine ointment and a small slitted gauze were placed posterior to the external bolster at the tube exit site. Pt tolerated both procedures well. Pt was taken immediately back to the ICU in stable condition. Anesthesia: GETA Surgeon: TONI CHAKRABORTY Estimated blood loss: minimal Pathology: none Condition: stable Disposition: ICU
[2022-04-15] MEDS: CEFEPIME/NS 2 GM/100 ML 2 GM/100 ML BAG IV SCH ×2 (01:39→12:36)
[2022-04-15] MEDS: fentaNYL 100 MCG/2 ML INJ IV PRN (01:44)
--- NOTE | 2022-04-15 05:02 | XRay Report ---
CHEST 1 VIEW INDICATION / CLINICAL INFORMATION: F/U-Respiratory failure. COMPARISON: 04/12/2022 FINDINGS: SUPPORT DEVICES: New tracheostomy tube in expected position. PEG tube overlies distal stomach. NG tub e, ET tube and right IJ CVL have been removed. HEART / MEDIASTINUM: No significant abnormality. LUNGS / PLEURA: New complete opacification right hemithorax with volume loss likely secondary to mucu s plugging. Left lung clear. No pneumothorax. ADDITIONAL FINDINGS: No significant additional findings. IMPRESSION: 1. Complete opacification and volume loss right hemithorax likely secondary to mucus plugging. 2. Moderate gaseous distention of stomach with PEG tube noted Signer Name: Armando Sellers MD Signed: 04/15/2022 4:58 AM Workstation Name: [id number]
[2022-04-15 05:29] LABS: Hematocrit 30.2 % (35.5-45.6); Hemoglobin 9.6 gm/dl (11.8-15.2); Mean Corpuscular HGB Conc 32 % (32-34); Mean Corpuscular Volume 95 fl (84-94); Platelet Count 456 K/mm3 (140-440); Red Blood Count 3.19 M/mm3 (3.65-5.03); Red Cell Distribution Width 13.8 % (13.2-15.2)
[2022-04-15 05:45] LABS: Blood Urea Nitrogen 14 mg/dL (9-20); Calcium 8.7 mg/dL (8.4-10.2); Hemolysis Index 2
[2022-04-15 05:49] LABS: BUN/Creatinine Ratio 70
[2022-04-15] MEDS: INSULIN REGULAR, HUMAN 100 UNITS/1 ML SUB-Q SCH ×4 (06:18→17:25)
[2022-04-15] MEDS: METOPROLOL TARTRATE 25 MG TAB FEEDTUBE SCH ×3 (06:19→17:04)
[2022-04-15] MEDS: QUEtiapine 25 MG TAB PO SCH ×2 (06:21→15:55)
[2022-04-15] MEDS: HEPARIN 5,000 UNIT/1 ML VIAL SUB-Q SCH ×3 (06:21→22:11)
--- NOTE | 2022-04-15 08:22 | Progress Note ---
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 Daily SBT -Monitoring renal function, hemodynamics and electrolyte profile -Replete electrolytes as clinically indicated -Accuchecks with glycemic control. target blood glucose 140-180 mg/dL. Avoid hypoglycemia -Continue enteric nutritional support, bowel regimen -VTE prophylaxis- Heparin -Avoid nephrotoxins and renally dose all medications -Stress ulcer prophylaxis- Famotidine -Mobility, frequent turning, off loading per facility protocol to prevent pressure ulcers -Maintain sleep wake cycle, avoid benzodiazepines. -Limit delirium CONDITION:CRITICAL PROGNOSIS: GUARDED CODE STATUS; FULL CODE The high probability of a clinically significant, sudden or life threatening deterioration of the respiratory, cardiovascular, neurology system required my full and direct attention, intervention and personal management. The aggregate critical care time was [35] minutes. This time is in addition to time spent performing reported procedures but includes the following: [x] Data Review and interpretation [x] Patient assessment and monitoring of vital signs [x] Documentation [x] Medication orders and management Subjective Date of service: 04/15/22 Principal diagnosis: Ac and ch hypercapnic and hypoxemic Resp Failure; ALS; HCAP; Sepsis; NSTEMI Interval history: Follow up for : Acute and chronic Respiratory Failure with Hypoxia and Hypercapnia 2/2 ALS;Protein calorie malnutrition;Acute Bronchopneumonia; HCAP; Hypotension; NSTEMI; Hypernatremia; Acute Metabolic Encephalopathy; H/o Amyotrophic Lateral Sclerosis Patient seen and examined. Vitals, labs, medications, chart and imaging reviewed. Discussed with respiratory and nursing care staff. s/p trach and PEG. Increasing FIO2 and PEEP requirements. CXR shows a right brandi-opacification No reported fevers, blood pressure acceptable range. Objective Vital Signs - 12hr 04/14/22 04/14/22 04/14/22 20:30 20:45 21:00 Temperature Pulse Rate 106 H 107 H 106 H Pulse Rate [ Anterior Bilateral Throughout] Pulse Rate [ From Monitor] Respiratory 14 17 14 Rate Respiratory Rate [Anterior Bilateral Throughout] Blood Pressure 129/70 129/70 138/67 O2 Sat by Pulse 95 96 100 Oximetry O2 Sat by Pulse Oximetry [ Assessment] 04/14/22 04/14/22 04/14/22 21:15 21:30 21:45 Temperature Pulse Rate 111 H 104 H 102 H Pulse Rate [ Anterior Bilateral Throughout] Pulse Rate [ From Monitor] Respiratory 18 15 14 Rate Respiratory Rate [Anterior Bilateral Throughout] Blood Pressure 138/67 134/77 134/77 O2 Sat by Pulse 97 96 97 Oximetry O2 Sat by Pulse Oximetry [ Assessment] 04/14/22 04/14/22 04/14/22 22:00 22:15 22:30 Temperature Pulse Rate 104 H 109 H 105 H Pulse Rate [ Anterior Bilateral Throughout] Pulse Rate [ 104 H From Monitor] Respiratory 14 16 15 Rate Respiratory Rate [Anterior Bilateral Throughout] Blood Pressure 124/77 124/77 130/77 O2 Sat by Pulse 98 97 Oximetry O2 Sat by Pulse Oximetry [ Assessment] 04/14/22 04/14/22 04/14/22 22:45 23:00 23:15 Temperature Pulse Rate 108 H 107 H 104 H Pulse Rate [ Anterior Bilateral Throughout] Pulse Rate [ From Monitor] Respiratory 14 18 15 Rate Respiratory Rate [Anterior Bilateral Throughout] Blood Pressure 130/77 134/79 134/79 O2 Sat by Pulse 97 93 97 Oximetry O2 Sat by Pulse Oximetry [ Assessment] 04/14/22 04/14/22 04/14/22 23:23 23:25 23:29 Temperature Pulse Rate 112 H 110 H Pulse Rate [ 104 H Anterior Bilateral Throughout] Pulse Rate [ From Monitor] Respiratory 16 Rate Respiratory 16 Rate [Anterior Bilateral Throughout] Blood Pressure 134/79 134/79 O2 Sat by Pulse 96 97 Oximetry O2 Sat by Pulse Oximetry [ Assessment] 04/14/22 04/14/22 04/15/22 23:30 23:45 00:00 Temperature 98.4 F Pulse Rate 108 H 110 H 110 H Pulse Rate [ Anterior Bilateral Throughout] Pulse Rate [ From Monitor] Respiratory 15 16 19 Rate Respiratory Rate [Anterior Bilateral Throughout] Blood Pressure 130/84 130/84 127/85 O2 Sat by Pulse Oximetry O2 Sat by Pulse Oximetry [ Assessment] 04/15/22 04/15/22 04/15/22 00:15 00:30 00:45 Temperature Pulse Rate 105 H 94 H 103 H Pulse Rate [ Anterior Bilateral Throughout] Pulse Rate [ From Monitor] Respiratory 15 14 13 Rate Respiratory Rate [Anterior Bilateral Throughout] Blood Pressure 127/85 113/69 113/69 O2 Sat by Pulse 98 Oximetry O2 Sat by Pulse Oximetry [ Assessment] 04/15/22 04/15/22 04/15/22 01:00 01:15 01:30 Temperature Pulse Rate 108 H 105 H 109 H Pulse Rate [ Anterior Bilateral Throughout] Pulse Rate [ From Monitor] Respiratory 14 14 14 Rate Respiratory Rate [Anterior Bilateral Throughout] Blood Pressure 117/71 117/71 112/67 O2 Sat by Pulse 98 98 97 Oximetry O2 Sat by Pulse Oximetry [ Assessment] 04/15/22 04/15/22 04/15/22 01:45 02:00 02:15 Temperature Pulse Rate 104 H 105 H 110 H Pulse Rate [ Anterior Bilateral Throughout] Pulse Rate [ 104 H From Monitor] Respiratory 14 15 17 Rate Respiratory Rate [Anterior Bilateral Throughout] Blood Pressure 112/67 113/72 113/72 O2 Sat by Pulse 97 95 97 Oximetry O2 Sat by Pulse Oximetry [ Assessment] 04/15/22 04/15/22 04/15/22 02:30 02:45 03:00 Temperature Pulse Rate 108 H 107 H 109 H Pulse Rate [ Anterior Bilateral Throughout] Pulse Rate [ From Monitor] Respiratory 15 16 17 Rate Respiratory Rate [Anterior Bilateral Throughout] Blood Pressure 120/71 120/71 126/75 O2 Sat by Pulse 92 96 Oximetry O2 Sat by Pulse Oximetry [ Assessment] 04/15/22 04/15/22 04/15/22 03:15 03:31 03:45 Temperature Pulse Rate 108 H 114 H 110 H Pulse Rate [ Anterior Bilateral Throughout] Pulse Rate [ From Monitor] Respiratory 18 16 11 L Rate Respiratory Rate [Anterior Bilateral Throughout] Blood Pressure 126/75 126/75 126/75 O2 Sat by Pulse 100 Oximetry O2 Sat by Pulse Oximetry [ Assessment] 04/15/22 04/15/22 04/15/22 04:00 04:01 04:15 Temperature 98.8 F Pulse Rate 109 H 104 H Pulse Rate [ Anterior Bilateral Throughout] Pulse Rate [ From Monitor] Respiratory 17 14 Rate Respiratory Rate [Anterior Bilateral Throughout] Blood Pressure 126/75 135/79 O2 Sat by Pulse 97 96 Oximetry O2 Sat by Pulse Oximetry [ Assessment] 04/15/22 04/15/22 04/15/22 04:31 04:41 04:45 Temperature Pulse Rate 107 H 99 H 85 Pulse Rate [ Anterior Bilateral Throughout] Pulse Rate [ From Monitor] Respiratory 15 14 Rate Respiratory Rate [Anterior Bilateral Throughout] Blood Pressure 135/79 135/79 135/79 O2 Sat by Pulse 97 98 97 Oximetry O2 Sat by Pulse 98 Oximetry [ Assessment] 04/15/22 04/15/22 04/15/22 05:00 05:15 05:30 Temperature Pulse Rate 90 109 H 101 H Pulse Rate [ Anterior Bilateral Throughout] Pulse Rate [ From Monitor] Respiratory 15 17 14 Rate Respiratory Rate [Anterior Bilateral Throughout] Blood Pressure 119/72 119/72 119/72 O2 Sat by Pulse 99 100 Oximetry O2 Sat by Pulse Oximetry [ Assessment] 04/15/22 04/15/22 04/15/22 05:45 06:00 06:15 Temperature Pulse Rate 92 H 99 H 78 Pulse Rate [ Anterior Bilateral Throughout] Pulse Rate [ 98 H From Monitor] Respiratory 15 14 12 Rate Respiratory Rate [Anterior Bilateral Throughout] Blood Pressure 119/72 117/69 117/69 O2 Sat by Pulse 100 100 100 Oximetry O2 Sat by Pulse Oximetry [ Assessment] 04/15/22 04/15/22 04/15/22 06:31 06:45 07:00 Temperature Pulse Rate 100 H 106 H 118 H Pulse Rate [ Anterior Bilateral Throughout] Pulse Rate [ From Monitor] Respiratory 18 21 18 Rate Respiratory Rate [Anterior Bilateral Throughout] Blood Pressure 117/69 117/69 119/77 O2 Sat by Pulse 99 99 97 Oximetry O2 Sat by Pulse Oximetry [ Assessment] 04/15/22 04/15/22 04/15/22 07:15 07:31 07:45 Temperature Pulse Rate 109 H 113 H 98 H Pulse Rate [ Anterior Bilateral Throughout] Pulse Rate [ From Monitor] Respiratory 33 H 32 H 31 H Rate Respiratory Rate [Anterior Bilateral Throughout] Blood Pressure 119/77 119/77 119/77 O2 Sat by Pulse 99 99 99 Oximetry O2 Sat by Pulse Oximetry [ Assessment] 04/15/22 08:00 Temperature 99 F Pulse Rate 104 H Pulse Rate [ Anterior Bilateral Throughout] Pulse Rate [ From Monitor] Respiratory 19 Rate Respiratory Rate [Anterior Bilateral Throughout] Blood Pressure 120/75 O2 Sat by Pulse 97 Oximetry O2 Sat by Pulse Oximetry [ Assessment] Constitutional: alert, appears uncomfortable, other (trach to MVS in bed with mildly increased respiratory effort at rest) Eyes: non-icteric ENT: oropharynx moist Neck: supple, no lymphadenopathy, no JVD, other (RIJ CVL) Effort: mildly labored Ascultation: Bilateral: diminished breath sounds (R>L base), rhonchi (basilar predominant) Percussion: Bilateral: not dull Cardiovascular: regular rate and rhythm, other (S1,S2) Gastrointestinal: normoactive bowel sounds, soft, non-tender, non-distended, other (PEG) Integumentary: normal Extremities: no cyanosis, no edema, pink and warm, pulses normal Neurologic: pupils equal and round, other (functional quadriplegia) Psychiatric: anxious CBC and BMP: 04/16/22 04:16 04/16/22 04:16 ABG, PT/INR, D-dimer: ABG ABG pH 7.383 pH Units (7.350-7.450) 04/14/22 09:10 ABG pCO2 76.5 mm Hg 04/14/22 09:10 ABG pO2 66.9 mm Hg (80.0-90.0) L 04/14/22 09:10 ABG O2 Saturation 96.4 % (95.0-99.0) 04/14/22 09:10 PT/INR, D-dimer PT 13.6 Sec. (12.2-14.9) 04/13/22 04:30 INR 0.94 (0.87-1.13) 04/13/22 04:30 Abnormal lab findings: Abnormal Labs 04/02/22 04/02/22 04/02/22 19:39 19:39 19:39 WBC 14.3 H RBC Hgb Hct MCV 96 H Plt Count 104 L Lymph % (Auto) [place] % (Auto) Lymph # (Auto) [place] # (Auto) Seg Neutrophils % Seg Neuts % (Manual) 94.0 H Lymphocytes % (Manual) 1.0 L Seg Neutrophils # Seg Neutrophils # Man 13.4 H Lymphocytes # (Manual) 0.1 L PT 15.9 H INR 1.14 H ABG pH ABG pO2 ABG HCO3 ABG O2 Saturation ABG Base Excess ABG Hemoglobin Oxyhemoglobin Sodium 151 H Potassium Chloride Carbon Dioxide Creatinine 0.5 L Glucose POC Glucose Calcium 8.2 L Phosphorus Magnesium 1.60 L Total Creatine Kinase CK-MB (CK-2) Rel Index Troponin T 0.048 H C-Reactive Protein Total Protein 4.6 L Albumin 2.7 L LDL Cholesterol Direct 27 L Urine WBC (Auto) 04/02/22 04/03/22 04/03/22 19:42 05:14 06:30 WBC RBC Hgb Hct MCV Plt Count Lymph % (Auto) [place] % (Auto) Lymph # (Auto) [place] # (Auto) Seg Neutrophils % Seg Neuts % (Manual) Lymphocytes % (Manual) Seg Neutrophils # Seg Neutrophils # Man Lymphocytes # (Manual) PT INR ABG pH 7.471 H 7.496 H ABG pO2 47.8 L 91.0 H ABG HCO3 30.6 H ABG O2 Saturation 94.4 L ABG Base Excess 6.2 H ABG Hemoglobin 11.0 L 12.8 L Oxyhemoglobin 93.1 L Sodium 149 H Potassium 3.4 L Chloride Carbon Dioxide Creatinine 0.4 L Glucose POC Glucose Calcium Phosphorus Magnesium Total Creatine Kinase CK-MB (CK-2) Rel Index Troponin T C-Reactive Protein Total Protein Albumin LDL Cholesterol Direct Urine WBC (Auto) 04/04/22 04/04/22 04/04/22 04:18 04:18 05:50 WBC 11.8 H RBC Hgb Hct MCV Plt Count 132 L Lymph % (Auto) [place] % (Auto) Lymph # (Auto) [place] # (Auto) Seg Neutrophils % Seg Neuts % (Manual) Lymphocytes % (Manual) Seg Neutrophils # Seg Neutrophils # Man Lymphocytes # (Manual) PT INR ABG pH 7.517 H ABG pO2 115.5 H ABG HCO3 29.9 H ABG O2 Saturation ABG Base Excess 6.7 H ABG Hemoglobin 12.3 L Oxyhemoglobin Sodium Potassium 3.5 L Chloride Carbon Dioxide 31 H Creatinine 0.3 L Glucose 153 H POC Glucose Calcium Phosphorus 1.40 L Magnesium 1.50 L Total Creatine Kinase CK-MB (CK-2) Rel Index Troponin T C-Reactive Protein 31.60 H Total Protein Albumin LDL Cholesterol Direct Urine WBC (Auto) 04/05/22 04/05/22 04/05/22 02:50 05:25 11:28 WBC RBC Hgb Hct MCV Plt Count Lymph % (Auto) [place] % (Auto) Lymph # (Auto) [place] # (Auto) Seg Neutrophils % Seg Neuts % (Manual) Lymphocytes % (Manual) Seg Neutrophils # Seg Neutrophils # Man Lymphocytes # (Manual) PT INR ABG pH 7.455 H ABG pO2 50.7 L ABG HCO3 30.5 H ABG O2 Saturation 89.4 L ABG Base Excess 5.9 H ABG Hemoglobin 11.8 L Oxyhemoglobin 88.2 L Sodium Potassium Chloride Carbon Dioxide 32 H Creatinine 0.2 L Glucose 110 H POC Glucose 124 H Calcium 7.9 L Phosphorus Magnesium Total Creatine Kinase CK-MB (CK-2) Rel Index Troponin T C-Reactive Protein Total Protein Albumin LDL Cholesterol Direct Urine WBC (Auto) 04/05/22 04/05/22 04/06/22 17:45 Unknown 04:00 WBC RBC 3.55 L Hgb 11.1 L 11.5 L Hct 33.2 L 35.1 L MCV Plt Count 113 L 114 L Lymph % (Auto) [place] % (Auto) Lymph # (Auto) [place] # (Auto) Seg Neutrophils % Seg Neuts % (Manual) Lymphocytes % (Manual) Seg Neutrophils # Seg Neutrophils # Man Lymphocytes # (Manual) PT INR ABG pH ABG pO2 ABG HCO3 ABG O2 Saturation ABG Base Excess ABG Hemoglobin Oxyhemoglobin Sodium Potassium Chloride Carbon Dioxide Creatinine Glucose POC Glucose Calcium Phosphorus Magnesium Total Creatine Kinase CK-MB (CK-2) Rel Index Troponin T C-Reactive Protein Total Protein Albumin LDL Cholesterol Direct Urine WBC (Auto) 8.0 H 04/06/22 04/06/22 04/07/22 04:00 08:30 00:04 WBC RBC Hgb Hct MCV Plt Count Lymph % (Auto) [place] % (Auto) Lymph # (Auto) [place] # (Auto) Seg Neutrophils % Seg Neuts % (Manual) Lymphocytes % (Manual) Seg Neutrophils # Seg Neutrophils # Man Lymphocytes # (Manual) PT INR ABG pH ABG pO2 60.8 L ABG HCO3 30.5 H ABG O2 Saturation 93.3 L ABG Base Excess 4.9 H ABG Hemoglobin 12.4 L Oxyhemoglobin 92.1 L Sodium Potassium 3.0 L Chloride Carbon Dioxide Creatinine < 0.2 L Glucose 130 H POC Glucose 117 H Calcium 8.1 L Phosphorus Magnesium Total Creatine Kinase CK-MB (CK-2) Rel Index Troponin T C-Reactive Protein Total Protein Albumin LDL Cholesterol Direct Urine WBC (Auto) 04/07/22 04/07/22 04/07/22 03:51 03:51 03:51 WBC 14.6 H RBC 3.57 L Hgb 11.1 L Hct 33.2 L MCV Plt Count 118 L Lymph % (Auto) 4.3 L [place] % (Auto) 8.8 H Lymph # (Auto) 0.6 L [place] # (Auto) 1.3 H Seg Neutrophils % 86.6 H Seg Neuts % (Manual) Lymphocytes % (Manual) Seg Neutrophils # 12.7 H Seg Neutrophils # Man Lymphocytes # (Manual) PT 15.2 H INR ABG pH ABG pO2 ABG HCO3 ABG O2 Saturation ABG Base Excess ABG Hemoglobin Oxyhemoglobin Sodium 133 L Potassium Chloride 96.0 L Carbon Dioxide 31 H Creatinine 0.2 L Glucose 130 H POC Glucose Calcium 8.0 L Phosphorus Magnesium Total Creatine Kinase CK-MB (CK-2) Rel Index Troponin T C-Reactive Protein Total Protein Albumin LDL Cholesterol Direct Urine WBC (Auto) 04/07/22 04/07/22 04/08/22 04:25 09:10 04:49 WBC 16.1 H RBC 3.54 L Hgb 10.9 L Hct 33.3 L MCV Plt Count Lymph % (Auto) [place] % (Auto) Lymph # (Auto) [place] # (Auto) Seg Neutrophils % Seg Neuts % (Manual) Lymphocytes % (Manual) Seg Neutrophils # Seg Neutrophils # Man Lymphocytes # (Manual) PT INR ABG pH ABG pO2 71.0 L 63.4 L ABG HCO3 31.5 H 40.0 H ABG O2 Saturation 94.9 L ABG Base Excess 5.9 H 13.6 H ABG Hemoglobin 11.3 L 9.0 L Oxyhemoglobin 93.6 L Sodium Potassium Chloride Carbon Dioxide Creatinine Glucose POC Glucose Calcium Phosphorus Magnesium Total Creatine Kinase CK-MB (CK-2) Rel Index Troponin T C-Reactive Protein Total Protein Albumin LDL Cholesterol Direct Urine WBC (Auto) 04/08/22 04/08/22 04/08/22 04:49 09:53 10:25 WBC RBC Hgb Hct MCV Plt Count Lymph % (Auto) [place] % (Auto) Lymph # (Auto) [place] # (Auto) Seg Neutrophils % Seg Neuts % (Manual) Lymphocytes % (Manual) Seg Neutrophils # Seg Neutrophils # Man Lymphocytes # (Manual) PT INR ABG pH ABG pO2 ABG HCO3 34.7 H ABG O2 Saturation ABG Base Excess 7.9 H ABG Hemoglobin 11.0 L Oxyhemoglobin Sodium 136 L Potassium Chloride 97.7 L Carbon Dioxide 33 H Creatinine 0.2 L Glucose 155 H POC Glucose Calcium Phosphorus Magnesium Total Creatine Kinase CK-MB (CK-2) Rel Index Troponin T 0.030 H C-Reactive Protein Total Protein Albumin LDL Cholesterol Direct Urine WBC (Auto) 04/08/22 04/08/22 04/08/22 11:19 17:47 18:06 WBC RBC Hgb Hct MCV Plt Count Lymph % (Auto) [place] % (Auto) Lymph # (Auto) [place] # (Auto) Seg Neutrophils % Seg Neuts % (Manual) Lymphocytes % (Manual) Seg Neutrophils # Seg Neutrophils # Man Lymphocytes # (Manual) PT INR ABG pH ABG pO2 ABG HCO3 ABG O2 Saturation ABG Base Excess ABG Hemoglobin Oxyhemoglobin Sodium Potassium Chloride Carbon Dioxide Creatinine Glucose POC Glucose 121 H Calcium Phosphorus Magnesium Total Creatine Kinase 31 L 46 L CK-MB (CK-2) Rel Index 6.4 H 5.6 H Troponin T 0.030 H 0.031 H C-Reactive Protein Total Protein Albumin LDL Cholesterol Direct Urine WBC (Auto) 04/09/22 04/09/22 04/09/22 04:35 04:35 11:24 WBC 11.5 H RBC 3.16 L Hgb 9.9 L Hct 29.4 L MCV Plt Count 131 L Lymph % (Auto) [place] % (Auto) Lymph # (Auto) [place] # (Auto) Seg Neutrophils % Seg Neuts % (Manual) Lymphocytes % (Manual) Seg Neutrophils # Seg Neutrophils # Man Lymphocytes # (Manual) PT INR ABG pH ABG pO2 ABG HCO3 ABG O2 Saturation ABG Base Excess ABG Hemoglobin Oxyhemoglobin Sodium Potassium Chloride 97.1 L Carbon Dioxide 35 H Creatinine < 0.2 L Glucose 145 H POC Glucose 147 H Calcium Phosphorus Magnesium Total Creatine Kinase CK-MB (CK-2) Rel Index Troponin T C-Reactive Protein Total Protein Albumin LDL Cholesterol Direct Urine WBC (Auto) 04/09/22 04/09/22 04/09/22 13:00 17:32 23:48 WBC RBC Hgb Hct MCV Plt Count Lymph % (Auto) [place] % (Auto) Lymph # (Auto) [place] # (Auto) Seg Neutrophils % Seg Neuts % (Manual) Lymphocytes % (Manual) Seg Neutrophils # Seg Neutrophils # Man Lymphocytes # (Manual) PT INR ABG pH ABG pO2 66.6 L ABG HCO3 38.2 H ABG O2 Saturation 94.4 L ABG Base Excess 10.7 H ABG Hemoglobin 10.7 L Oxyhemoglobin 92.8 L Sodium Potassium Chloride Carbon Dioxide Creatinine Glucose POC Glucose 143 H 114 H Calcium Phosphorus Magnesium Total Creatine Kinase CK-MB (CK-2) Rel Index Troponin T C-Reactive Protein Total Protein Albumin LDL Cholesterol Direct Urine WBC (Auto) 04/10/22 04/10/22 04/10/22 04:48 04:48 05:34 WBC RBC 2.91 L Hgb 9.1 L Hct 27.7 L MCV 95 H Plt Count Lymph % (Auto) [place] % (Auto) Lymph # (Auto) [place] # (Auto) Seg Neutrophils % Seg Neuts % (Manual) Lymphocytes % (Manual) Seg Neutrophils # Seg Neutrophils # Man Lymphocytes # (Manual) PT INR ABG pH ABG pO2 ABG HCO3 ABG O2 Saturation ABG Base Excess ABG Hemoglobin Oxyhemoglobin Sodium Potassium Chloride 95.7 L Carbon Dioxide 38 H Creatinine < 0.2 L Glucose 118 H POC Glucose 127 H Calcium Phosphorus Magnesium Total Creatine Kinase CK-MB (CK-2) Rel Index Troponin T C-Reactive Protein Total Protein Albumin LDL Cholesterol Direct Urine WBC (Auto) 04/10/22 04/11/22 04/11/22 23:10 04:15 04:15 WBC 17.2 H RBC 2.98 L Hgb 9.2 L Hct 27.9 L MCV Plt Count Lymph % (Auto) [place] % (Auto) Lymph # (Auto) [place] # (Auto) Seg Neutrophils % Seg Neuts % (Manual) Lymphocytes % (Manual) Seg Neutrophils # Seg Neutrophils # Man Lymphocytes # (Manual) PT INR ABG pH ABG pO2 ABG HCO3 ABG O2 Saturation ABG Base Excess ABG Hemoglobin Oxyhemoglobin Sodium Potassium Chloride 96.1 L Carbon Dioxide 35 H Creatinine < 0.2 L Glucose 138 H POC Glucose 106 H Calcium 8.3 L Phosphorus Magnesium Total Creatine Kinase CK-MB (CK-2) Rel Index Troponin T C-Reactive Protein Total Protein Albumin LDL Cholesterol Direct Urine WBC (Auto) 04/11/22 04/11/22 04/11/22 05:31 13:18 16:20 WBC RBC Hgb Hct MCV Plt Count Lymph % (Auto) [place] % (Auto) Lymph # (Auto) [place] # (Auto) Seg Neutrophils % Seg Neuts % (Manual) Lymphocytes % (Manual) Seg Neutrophils # Seg Neutrophils # Man Lymphocytes # (Manual) PT INR ABG pH ABG pO2 57.8 L ABG HCO3 40.5 H ABG O2 Saturation 90.6 L ABG Base Excess 12.6 H ABG Hemoglobin 10.5 L Oxyhemoglobin 89.0 L Sodium Potassium Chloride Carbon Dioxide Creatinine Glucose POC Glucose 129 H 132 H Calcium Phosphorus Magnesium Total Creatine Kinase CK-MB (CK-2) Rel Index Troponin T C-Reactive Protein Total Protein Albumin LDL Cholesterol Direct Urine WBC (Auto) 04/11/22 04/11/22 04/12/22 17:29 23:17 04:00 WBC 17.4 H RBC 2.96 L Hgb 9.0 L Hct 28.0 L MCV 95 H Plt Count Lymph % (Auto) [place] % (Auto) Lymph # (Auto) [place] # (Auto) Seg Neutrophils % Seg Neuts % (Manual) Lymphocytes % (Manual) Seg Neutrophils # Seg Neutrophils # Man Lymphocytes # (Manual) PT INR ABG pH ABG pO2 ABG HCO3 ABG O2 Saturation ABG Base Excess ABG Hemoglobin Oxyhemoglobin Sodium Potassium Chloride Carbon Dioxide Creatinine Glucose POC Glucose 125 H 151 H Calcium Phosphorus Magnesium Total Creatine Kinase CK-MB (CK-2) Rel Index Troponin T C-Reactive Protein Total Protein Albumin LDL Cholesterol Direct Urine WBC (Auto) 04/12/22 04/12/22 04/12/22 04:00 17:03 23:39 WBC RBC Hgb Hct MCV Plt Count Lymph % (Auto) [place] % (Auto) Lymph # (Auto) [place] # (Auto) Seg Neutrophils % Seg Neuts % (Manual) Lymphocytes % (Manual) Seg Neutrophils # Seg Neutrophils # Man Lymphocytes # (Manual) PT INR ABG pH ABG pO2 ABG HCO3 ABG O2 Saturation ABG Base Excess ABG Hemoglobin Oxyhemoglobin Sodium Potassium Chloride 97.4 L Carbon Dioxide 37 H Creatinine < 0.2 L Glucose 127 H POC Glucose 106 H 107 H Calcium Phosphorus Magnesium Total Creatine Kinase CK-MB (CK-2) Rel Index Troponin T C-Reactive Protein Total Protein Albumin LDL Cholesterol Direct Urine WBC (Auto) 04/13/22 04/13/22 04/13/22 04:30 04:30 17:39 WBC 14.1 H RBC 2.66 L Hgb 8.4 L Hct 25.5 L MCV 96 H Plt Count Lymph % (Auto) [place] % (Auto) Lymph # (Auto) [place] # (Auto) Seg Neutrophils % Seg Neuts % (Manual) Lymphocytes % (Manual) Seg Neutrophils # Seg Neutrophils # Man Lymphocytes # (Manual) PT INR ABG pH ABG pO2 ABG HCO3 ABG O2 Saturation ABG Base Excess ABG Hemoglobin Oxyhemoglobin Sodium Potassium Chloride 93.9 L Carbon Dioxide 39 H Creatinine < 0.2 L Glucose POC Glucose 134 H Calcium Phosphorus 1.90 L Magnesium Total Creatine Kinase CK-MB (CK-2) Rel Index Troponin T C-Reactive Protein Total Protein Albumin LDL Cholesterol Direct Urine WBC (Auto) 04/14/22 04/14/22 04/14/22 05:03 05:03 09:10 WBC 15.6 H RBC 3.02 L Hgb 9.3 L Hct 28.8 L MCV 95 H Plt Count Lymph % (Auto) [place] % (Auto) Lymph # (Auto) [place] # (Auto) Seg Neutrophils % Seg Neuts % (Manual) Lymphocytes % (Manual) Seg Neutrophils # Seg Neutrophils # Man Lymphocytes # (Manual) PT INR ABG pH ABG pO2 66.9 L ABG HCO3 44.5 H ABG O2 Saturation ABG Base Excess 17.2 H ABG Hemoglobin 8.1 L Oxyhemoglobin 94.8 L Sodium Potassium Chloride 93.8 L Carbon Dioxide 42 H* Creatinine < 0.2 L Glucose 117 H POC Glucose Calcium Phosphorus Magnesium Total Creatine Kinase CK-MB (CK-2) Rel Index Troponin T C-Reactive Protein Total Protein Albumin LDL Cholesterol Direct Urine WBC (Auto) 04/15/22 04/15/22 04:44 04:44 WBC 13.0 H RBC 3.19 L Hgb 9.6 L Hct 30.2 L MCV 95 H Plt Count 456 H Lymph % (Auto) [place] % (Auto) Lymph # (Auto) [place] # (Auto) Seg Neutrophils % Seg Neuts % (Manual) Lymphocytes % (Manual) Seg Neutrophils # Seg Neutrophils # Man Lymphocytes # (Manual) PT INR ABG pH ABG pO2 ABG HCO3 ABG O2 Saturation ABG Base Excess ABG Hemoglobin Oxyhemoglobin Sodium Potassium Chloride 95.5 L Carbon Dioxide 37 H Creatinine < 0.2 L Glucose POC Glucose Calcium Phosphorus Magnesium Total Creatine Kinase CK-MB (CK-2) Rel Index Troponin T C-Reactive Protein Total Protein Albumin LDL Cholesterol Direct Urine WBC (Auto) Chest x-ray: image reviewed Allied health notes reviewed: nursing
[2022-04-15] MEDS: ALBUTEROL 2.5 MG/3 ML NEBU IH SCH ×2 (08:38→16:15)
--- NOTE | 2022-04-15 08:54 | Progress Note ---
<ALEK SMITH - Last Filed: 04/15/22 17:59> Assessment and Plan Assessment and plan: This is a 57-year-old male with known history of ALS, recently hospitalized at [facility] admitted for acute hypoxemic respiratory failure 2/2 pneumonia Hospital Course to Date: 04/03: Intubated and Sedated on versed gtt, RASS-5. CT head/brain noted with no acute intracranial abnormality. Plan to initiated precededx gtt and wean off versed for a RASS goal of 0 to -2. CT chect also reviewed, findings are most consistent with acute bronchopneumonia. Continue empiric IV Abx, vent adjustment per CCM. ID consulted. Continue to F/U on cultures. Titrate pressor for MAP above 65. Medical records requested from [facility]. 04/04: Remains stable on the vent, easily arousable on precedex gtt, not following commands. Plan for SAT/SBT today. PRN analgesia for CPOT greater than 3. Fevers improved, cultures and procal pending. Continue current IV abx, ID also consulted. Remains on low dose pressors, titrate pressors for a MAP above 65. 04/05: Long discussion with family with use of translation phone with CCM regarding goals of care. Family to have meeting amongst themselves and informed care team of decisions. Fentanyl drip added for respiratory distress. Remains on Precedex drip. Antibiotics per ID. Given 2L NS bolus with levophed gtt 04/06: Family discussion with Dr. Grayson for goals of care. CXR shows possible mucus plug, continue CPT as FiO2 is being able to be weaned. Potassium repleted. Weaning fentnyl gtt. 04/07: Ultrasound guided thoracentesis today scheduled, inadequate amount of pleural effusion on so not completed. Patient was started on Levophed overnight which was weaned off this morning however had to be started twice a day. Remains on fentanyl and Precedex. Cardiology discontinued BB and ACEi in setting of hypotension. 04/08: COVID-19 PCR negative. Routine EEG ordered by cardiology which showed ST changes, cardiology aware. They will continue conservative treatment. Repeat troponins 0.030 which are less than admit of 0.048. Dr. Grayson had a long discu ssion with with the use of full time staff interpreter today at bedside and has not made a decision regarding goals of care. Possible consult to surgery for trach/PEG early next week. Continues to require Precedex and fentanyl drip for sedation. Carvedilol/lisinopril discontinued as patient is continuously on Levophed. 04/09: No acute events reported overnight, remains on fentanyl, Precedex and Levophed drips. Dr. Grayson and Dr. Pineda updated family at bedside extensively today. Consulted surgery for trach/PEG. COVID-19 PCR negative. 04/10: Patient noted to have desaturation episodes, FiO2 increased slightly to 35%. Will add Mucomyst. Remains on fentanyl and Precedex. Off of Levophed. Surgery consulted for trach/PEG. 04/11: FiO2 increased over night likely related to hypoxia, continues on fent gtt, weaning precedex gtt as he is also on Seroquel. Will d/w CCM re scheduled or prn oxycodone 04/12: Periods of hypoxia and tachycardia this am. Symptoms improved post deep suction and tracheal lavage, Repeat CXR noted with no significant change. Continue CPT and mucomyst. Plan for possible trach/PEG tomorrow by general surgery. 04/13: Remains stable on the vent. Patient is wake and tracking but does not follow simple commands. No report of hypoxia from overnight, continue CPT and mucomyst. Plan for track and PEG today by General Surgery. Plan for LTAC placement post procedure, case management to arrange. 04/14: VIRGILIO overnight, Trach and PEG postponed for today by general surgery. Plan for LTAC placement post procedure, case management to arrange. 04/15: S/p Trach and PEG. Up to 80% FiO2 this am, this am CXR noted suggesting possible mucus plug. D/W CCM plan for bronch today. Continue CPT and mucomyst. Plan of care thoroughly discussed with patient's and son (who translated for ) at the bedside. Per , telecommunication operator had already discussed the risks and benefits of the procedure yesterday. She verbalized understanding and agreed with procedure and current care plan, consent signed. Okay to use PEG-tube for meds this am, resume TF once okay by general Surgery. Case management to arrange LTAC placement. Assessment and Plan #Acute Hypoxemic Respiratory Failure 12/09 #Acute Bronchopneumonia - Intubated in the ED on 04/02 for hypoxemia and airway protection - 04/15 s/p Trach and PEG - Vent setting: PRVC-80%,10,14,400 - This am CXR reviewed complete opacity of the righ side suggesting possible mucus plug. See report for detail - CCM consulted, appreciate recommendations - Plan for possible bronchoscopy today by CCM - Continue IV abx, CPT, and mucomyst - VAP bundle addressed - Aspiration precaution HOB above 30 - Daily SBT and SAT trials as tolerated - PRN ABG and CXR per CCM - Continue SPO2 monitoring for SPO2 goal above 92% #Sepsis #Acute Bronchopneumonia #HCAP #Leukocytosis - CXR shows moderate to large layering effusion on the right, see report for full detail - CT chest also reviewed, findings are most consistent with acute bronchopneumonia. See report for full detail - Patient was recent hospitalized for pneumonia - Patient remains afebrile - Tracheal aspirate with Pseudomonas aeruginosa, Enterobacter aerogenes - 04/02 blood culture with bacillus species, 04/05 blood culture NGTD - CRP 31.6, procalcitonin 0.08 - MRSA negative - ID on consulted, appreciate recommendations - Continue IV Abx Cefepine per ID - Continue to F/U on cultures - Daily CBC monitor #Hypotension 2/2 sepsis-resolved #Suspect ischemic coronary artery disease #h/o cardiomyopathy - Low BP probably due to hypovolemia vs sedation vs infectious process - s/p Levophed gtt - Elevated troponin possibly a type II troponin leak - Cardiology consulted, appreciated recommendations - Echocardiogram shows ejection fraction of 40 to 45%, mild global hypokinesis of left ventricle - Continue BB - Continue blood pressure monitor per protocol - Titrate pressors to maintain MAP above 65 - On heparin SubQ #Hypernatremia-resolved - NGT inserted, continue FWF - Monitor and replace electrolytes as needed - Continue to trend BMP #Acute Metabolic Encephalopathy #H/o Amyotrophic Lateral Sclerosis #Nonverbal at Baseline - Presented with AMS, per family patient is nonverbal at baseline but responsive - CT head/Brain with no acute intracranial process - Off sedation. Awake and calm - Hold sedation for now - Continue Seroquel per CCM - Avoid benzodiazepine to reduce the possibility of delirium - PRN analgesia for CPOT greater than 3 - Maintenance of sleep-wake cycle #Thrombocytopenia-resolved - Continue to trend plt - On heparin subQ - Monitor for s/s of any active bleeding #Protein Caloric Malnutrition - Albumin 2.7, Total protein 4.6 - NGT in place, enteral nutrition initiated - Nutrition consulted #Constipation - Noted on CXR and KUB - last BM 04/15 - Continue BR #GI/DVT Prophylaxis - PPI- Pepcid - Heparin SubQ - SCDs to bilateral lower extremities while in bed #Advance Care Planning - Disease education data, care plan, diagnoses, and prognosis were discussed patient's , Carly Lopez, and patient daughter, Kaylee Warren, who translated for #[phone]. They reported that patient was following at [facility] for his ALS and during recent hospitalization at [facility] they were told nothing else can be offered to patient at this time and patient was di scharge home with home hospice and PO morphine. First hospice visit was on , however, patient became unresponsive yesterday and they brought in to the hospital. - Goal of care and code status were also addressed at that time. Family wants to wait for a couple days to see how patient respond to current treatment before making a decision. All questions and concerns were addressed at this time. Patient family acknowledged understanding and agreement with care plan. - Patient remains a FULL CODE status -04/05: Discussion at bedside with interpreting service with Dr. Valdivia and family state they would discuss next steps amongst themselves and let healthcare team know of decisions -04/06: extensive discussion with family ( and son) with Dr. Grayson regarding goals of care -04/08: Extensive discussion with with the use of full time staff interpreter line regarding goals of care; no decision made. Possible consult to surgery for trach/PEG early next week. -04/09: Discussion with and her sister with Dr. Grayson and then with Dr. Pineda-> Consulted surgery for trach/peg The high probability of a clinically significant, sudden or life threatening deterioration of the [multiple] system(s) required my full and direct attention, intervention and personal management. The aggregate critical care time was [60] minutes. This time is in addition to time spent performing reported procedures but includes the following: [x] Data Review and interpretation [x] Patient assessment and monitoring of vital signs [x] Documentation [x] Medication orders and management Disposition Plan: ICU Total Time Spent with Patient (Minutes): 60 History Interval history: Patient seen and examined at the bedside. s/p Trach/PEG, back up to 80% Fio2 this am. Off sedation, awake, tracking, and appear appropriate. Still not following commands, but could be due to language barrier. VSS Hospitalist Physical - Physical exam Narrative exam: General appearance: Present: no acute distress, cachectic, other (Trach and on the vent.Awake and tracking) - EENT Eyes: Present: PERRL - Neck Neck: Present: normal ROM - Respiratory Respiratory effort: normal Respiratory: bilateral: rhonchi - Cardiovascular Rhythm: regular Heart Sounds: Present: S1 & S2 - Extremities Extremities: no ischemia, pulses intact, pulses symmetrical Peripheral Pulses: within normal limits - Abdominal General gastrointestinal: soft, non-distended, normal bowel sounds - Integumentary Integumentary: Present: warm, dry - Psychiatric Psychiatric: other (Trach and on the vent. Awake and tracking, off sedations. Not following commands, probably due to language barrier) - Neurologic Neurologic: other (Trach and on the vent. Awake and tracking, off sedations. Not following commands, probably due to language barrier) - Allied Health Allied health notes reviewed: nursing, case management - Constitutional Vitals: Temp Pulse Resp BP Pulse Ox 99 F 94 H 15 120/75 99 04/15/22 08:00 04/15/22 08:39 04/15/22 08:39 04/15/22 08:00 04/15/22 08:00 HEART Score - HEART Score Troponin: Troponin T 0.031 ng/mL (0.00-0.029) H 04/08/22 17:47 Results - Labs CBC & Chem 7: 04/15/22 04:44 04/15/22 04:44 Labs: Laboratory Last Values WBC 13.0 K/mm3 (4.5-11.0) H 04/15/22 04:44 RBC 3.19 M/mm3 (3.65-5.03) L 04/15/22 04:44 Hgb 9.6 gm/dl (11.8-15.2) L 04/15/22 04:44 Hct 30.2 % (35.5-45.6) L 04/15/22 04:44 MCV 95 fl (84-94) H 04/15/22 04:44 MCH 30 pg (28-32) 04/15/22 04:44 MCHC 32 % (32-34) 04/15/22 04:44 RDW 13.8 % (13.2-15.2) 04/15/22 04:44 Plt Count 456 K/mm3 (140-440) H 04/15/22 04:44 Lymph % (Auto) 4.3 % (13.4-35.0) L 04/07/22 03:51 Louisa % (Auto) 8.8 % (0.0-7.3) H 04/07/22 03:51 Eos % (Auto) 0.1 % (0.0-4.3) 04/07/22 03:51 Baso % (Auto) 0.2 % (0.0-1.8) 04/07/22 03:51 Lymph # (Auto) 0.6 K/mm3 (1.2-5.4) L 04/07/22 03:51 Louisa # (Auto) 1.3 K/mm3 (0.0-0.8) H 04/07/22 03:51 Eos # (Auto) 0.0 K/mm3 (0.0-0.4) 04/07/22 03:51 Baso # (Auto) 0.0 K/mm3 (0.0-0.1) 04/07/22 03:51 Add Manual Diff Complete 04/02/22 19:39 Total Counted 100 04/02/22 19:39 Seg Neutrophils % 86.6 % (40.0-70.0) H 04/07/22 03:51 Seg Neuts % (Manual) 94.0 % (40.0-70.0) H 04/02/22 19:39 Band Neutrophils % 0 % 04/02/22 19:39 Lymphocytes % (Manual) 1.0 % (13.4-35.0) L 04/02/22 19:39 Reactive Lymphs % (Man) 0 % 04/02/22 19:39 Monocytes % (Manual) 5.0 % (0.0-7.3) 04/02/22 19:39 Eosinophils % (Manual) 0 % (0.0-4.3) 04/02/22 19:39 Basophils % (Manual) 0 % (0.0-1.8) 04/02/22 19:39 Metamyelocytes % 0 % 04/02/22 19:39 Myelocytes % 0 % 04/02/22 19:39 Promyelocytes % 0 % 04/02/22 19:39 Blast Cells % 0 % 04/02/22 19:39 Nucleated RBC % Not Reportable 04/02/22 19:39 Seg Neutrophils # 12.7 K/mm3 (1.8-7.7) H 04/07/22 03:51 Seg Neutrophils # Man 13.4 K/mm3 (1.8-7.7) H 04/02/22 19:39 Band Neutrophils # 0.0 K/mm3 04/02/22 19:39 Lymphocytes # (Manual) 0.1 K/mm3 (1.2-5.4) L 04/02/22 19:39 Abs React Lymphs (Man) 0.0 K/mm3 04/02/22 19:39 Monocytes # (Manual) 0.7 K/mm3 (0.0-0.8) 04/02/22 19:39 Eosinophils # (Manual) 0.0 K/mm3 (0.0-0.4) 04/02/22 19:39 Basophils # (Manual) 0.0 K/mm3 (0.0-0.1) 04/02/22 19:39 Metamyelocytes # 0.0 K/mm3 04/02/22 19:39 Myelocytes # 0.0 K/mm3 04/02/22 19:39 Promyelocytes # 0.0 K/mm3 04/02/22 19:39 Blast Cells # 0.0 K/mm3 04/02/22 19:39 WBC Morphology Not Reportable 04/02/22 19:39 Hypersegmented Neuts Not Reportable 04/02/22 19:39 Hyposegmented Neuts Not Reportable 04/02/22 19:39 Hypogranular Neuts Not Reportable 04/02/22 19:39 Smudge Cells Not Reportable 04/02/22 19:39 Toxic Granulation Not Reportable 04/02/22 19:39 Toxic Vacuolation Not Reportable 04/02/22 19:39 Dohle Bodies Not Reportable 04/02/22 19:39 Pelger-Huet Anomaly Not Reportable 04/02/22 19:39 Terry Rods Not Reportable 04/02/22 19:39 Platelet Estimate Consistent w auto 04/02/22 19:39 Clumped Platelets Not Reportable 04/02/22 19:39 Plt Clumps, EDTA Not Reportable 04/02/22 19:39 Large Platelets Not Reportable 04/02/22 19:39 Giant Platelets Not Reportable 04/02/22 19:39 Platelet Satelliting Not Reportable 04/02/22 19:39 Plt Morphology Comment Not Reportable 04/02/22 19:39 RBC Morphology Not Reportable 04/02/22 19:39 Dimorphic RBCs Not Reportable 04/02/22 19:39 Polychromasia Not Reportable 04/02/22 19:39 Hypochromasia Not Reportable 04/02/22 19:39 Poikilocytosis Not Reportable 04/02/22 19:39 Anisocytosis 1+ 04/02/22 19:39 Microcytosis Not Reportable 04/02/22 19:39 Macrocytosis Not Reportable 04/02/22 19:39 Spherocytes Not Reportable 04/02/22 19:39 Pappenheimer Bodies Not Reportable 04/02/22 19:39 Sickle Cells Not Reportable 04/02/22 19:39 Target Cells Not Reportable 04/02/22 19:39 Tear Drop Cells Not Reportable 04/02/22 19:39 Ovalocytes Not Reportable 04/02/22 19:39 Helmet Cells Not Reportable 04/02/22 19:39 Patric[place] Bodies Not Reportable 04/02/22 19:39 [place] Rings Not Reportable 04/02/22 19:39 [place] Cells Not Reportable 04/02/22 19:39 Bite Cells Not Reportable 04/02/22 19:39 Crenated Cell Not Reportable 04/02/22 19:39 Elliptocytes Not Reportable 04/02/22 19:39 Acanthocytes (Spur) Not Reportable 04/02/22 19:39 Rouleaux Not Reportable 04/02/22 19:39 Hemoglobin C Crystals Not Reportable 04/02/22 19:39 Schistocytes Not Reportable 04/02/22 19:39 Malaria parasites Not Reportable 04/02/22 19:39 [place] Bodies Not Reportable 04/02/22 19:39 Hem Pathologist Commnt No 04/02/22 19:39 PT 13.6 Sec. (12.2-14.9) 04/13/22 04:30 INR 0.94 (0.87-1.13) 04/13/22 04:30 APTT 35.7 Sec. (24.2-36.6) 04/07/22 03:51 ABG pH 7.383 pH Units (7.350-7.450) 04/14/22 09:10 ABG pCO2 76.5 mm Hg 04/14/22 09:10 ABG pO2 66.9 mm Hg (80.0-90.0) L 04/14/22 09:10 ABG HCO3 44.5 mmol/L (20.0-26.0) H 04/14/22 09:10 ABG O2 Saturation 96.4 % (95.0-99.0) 04/14/22 09:10 ABG O2 Content 10.9 (0.0-44) 04/14/22 09:10 ABG Base Excess 17.2 mmol/L (-2.0-3.0) H 04/14/22 09:10 ABG Hemoglobin 8.1 gm/dl (14.0-18.0) L 04/14/22 09:10 ABG Carboxyhemoglobin 1.3 % (0.0-5.0) 04/14/22 09:10 ABG Methemoglobin 0.3 % (0.0-1.5) 04/14/22 09:10 Oxyhemoglobin 94.8 % (95.0-99.0) L 04/14/22 09:10 FiO2 55 % 04/14/22 09:10 Sodium 142 mmol/L (137-145) 04/15/22 04:44 Potassium 3.9 mmol/L (3.6-5.0) 04/15/22 04:44 Chloride 95.5 mmol/L (98-107) L 04/15/22 04:44 Carbon Dioxide 37 mmol/L (22-30) H 04/15/22 04:44 Anion Gap 13 mmol/L 04/15/22 04:44 BUN 14 mg/dL (9-20) 04/15/22 04:44 Creatinine < 0.2 mg/dL (0.8-1.3) L 04/15/22 04:44 Estimated GFR > 60 ml/min 04/15/22 04:44 BUN/Creatinine Ratio 70 % 04/15/22 04:44 Glucose 89 mg/dL (75-100) 04/15/22 04:44 POC Glucose 134 mg/dL (70-105) H 04/13/22 17:39 Lactic Acid 1.90 mmol/L (0.7-2.0) 04/02/22 19:39 Calcium 8.7 mg/dL (8.4-10.2) 04/15/22 04:44 Phosphorus 3.40 mg/dL (2.5-4.5) 04/15/22 04:44 Magnesium 1.90 mg/dL (1.7-2.3) 04/15/22 04:44 Total Bilirubin 0.80 mg/dL (0.1-1.2) 04/02/22 19:39 AST 15 units/L (5-40) 04/02/22 19:39 ALT 9 units/L (7-56) 04/02/22 19:39 Alkaline Phosphatase 43 units/L (35-129) 04/02/22 19:39 Total Creatine Kinase 46 units/L (55-170) L 04/08/22 17:47 CK-MB (CK-2) 2.6 ng/mL (0.0-4.0) 04/08/22 17:47 CK-MB (CK-2) Rel Index 5.6 (0-4) H 04/08/22 17:47 Troponin T 0.031 ng/mL (0.00-0.029) H 04/08/22 17:47 C-Reactive Protein 31.60 mg/dL (0.00-1.30) H 04/04/22 04:18 Total Protein 4.6 g/dL (6.3-8.2) L 04/02/22 19:39 Albumin 2.7 g/dL (3.9-5) L 04/02/22 19:39 Albumin/Globulin Ratio 1.4 % 04/02/22 19:39 Triglycerides 80 mg/dL (2-149) 04/02/22 19:39 Cholesterol 94 mg/dL (50-199) 04/02/22 19:39 LDL Cholesterol Direct 27 mg/dL (50-130) L 04/02/22 19:39 HDL Cholesterol 47 mg/dL (40-59) 04/02/22 19:39 Cholesterol/HDL Ratio 2.00 % 04/02/22 19:39 Procalcitonin 0.08 ng/mL (<0.15) 04/04/22 04:18 Urine Color Aracely (Yellow) 04/05/22 17:45 Urine Turbidity Cloudy (Clear) 04/05/22 17:45 Urine pH 5.0 (5.0-7.0) 04/05/22 17:45 Ur Specific [place] 1.021 (1.003-1.030) 04/05/22 17:45 Urine Protein 30 mg/dl mg/dL (Negative) 04/05/22 17:45 Urine Glucose (UA) Neg mg/dL (Negative) 04/05/22 17:45 Urine Ketones Tr mg/dL (Negative) 04/05/22 17:45 Urine Blood Sm (Negative) 04/05/22 17:45 Urine Nitrite Neg (Negative) 04/05/22 17:45 Urine Bilirubin Neg (Negative) 04/05/22 17:45 Urine Urobilinogen < 2.0 mg/dL (<2.0) 04/05/22 17:45 Ur Leukocyte Esterase Tr (Negative) 04/05/22 17:45 Urine WBC (Auto) 8.0 /HPF (0.0-6.0) H 04/05/22 17:45 Urine RBC (Auto) 3.0 /HPF (0.0-6.0) 04/05/22 17:45 U Epithel Cells (Auto) 2.0 /HPF (0-13.0) 04/05/22 17:45 Urine Bacteria (Auto) 1+ /HPF (Negative) 04/02/22 Unknown Hyaline Casts 1 /LPF 04/05/22 17:45 Urine Mucus 3+ /HPF 04/05/22 17:45 Nasal Screen MRSA (PCR) Negative (Negative) 04/05/22 12:37 Vancomycin Trough 6.0 ug/mL (5.0-20.0) 04/05/22 18:53 Coronavirus (PCR) Negative (Negative) 04/07/22 14:52 Perez/IV: Voiding Method Condom Catheter Active Medications - Current Medications Current Medications: Generic Name Dose Route Start Last Admin Trade Name Freq PRN Reason Stop Dose Admin Acetaminophen 650 mg 04/02/22 23:53 04/11/22 17:31 Acetaminophen 325 Mg Tab PO 650 mg Q6H PRN Administration Pain MILD(1-3)/Fever >100.5/FAITH Albuterol 2.5 mg 04/06/22 16:00 04/15/22 08:38 Albuterol 2.5 Mg/3 Ml Nebu IH 2.5 mg Q8HRT SEGUNDO Administration Bisacodyl 10 mg 04/07/22 09:44 04/12/22 10:06 Bisacodyl 10 Mg Rect Supp DE 10 mg QDAY PRN Administration Constipation Dextrose 50 ml 04/06/22 17:54 Dextrose 50% In Water (25gm) 50 Ml Syringe IV Q30MIN PRN Hypoglycemia Protocol Docusate Sodium 100 mg 04/03/22 15:00 04/14/22 22:20 Docusate Sodium 100 Mg/10 Ml Oral Liqd PO Not Given BID SEGUNDO Famotidine 20 mg 04/06/22 10:00 04/14/22 22:23 Famotidine 20 Mg Tab FEEDTUBE Not Given BID SEGUNDO Fentanyl 50 mcg 04/04/22 15:56 04/15/22 01:44 Fentanyl 100 Mcg/2 Ml Inj IV 50 mcg Q2HR PRN Administration For CPOT of greater than 2 Heparin Sodium (Porcine) 5,000 unit 04/03/22 06:00 04/15/22 06:21 Heparin 5,000 Unit/1 Ml Vial SUB-Q 5,000 unit Q8HR SEGUNDO Administration NORepinephrine/NS 8 MG-250 ML 8 mg in 250 mls @ 3.75 mls/hr 04/02/22 22:00 04/10/22 09:20 Norepinephrine/Ns 8 Mg-250 Ml (Double Conc) IV 0 mcg/min TITRATE SEGUNDO 0 mls/hr Titration Protocol 2 MCG/MIN Dexmedetomidine HCl 400 mcg/ 104 mls @ 2.434 mls/hr 04/03/22 07:00 04/14/22 14:55 Sodium Chloride IV 0 mcg/kg/hr TITRATE SEGUNDO 0 mls/hr Titration Protocol 0.2 MCG/KG/HR Fentanyl Citrate 2,000 mcg in 100 mls @ 2.34 mls/hr 04/05/22 11:00 04/14/22 14:55 Fentanyl Drip Premix IV 0 mcg/kg/hr TITR SEGUNDO 0 mls/hr Titration Protocol 1 MCG/KG/HR Cefepime HCl 2 gm in 100 mls @ 200 mls/hr 04/12/22 13:00 04/15/22 01:39 Cefepime/Ns 2 Gm/100 Ml IV 04/15/22 12:59 200 mls/hr Q12H SEGUNDO Administration Protocol Insulin Human Regular 0 units 04/06/22 18:00 04/15/22 06:19 Insulin Regular, Human 100 Units/1 Ml SUB-Q Not Given Q6H [facility] Protocol Magnesium Hydroxide 30 ml 04/02/22 23:53 Magnesium Hydroxide (Mom) Oral Liqd Udc PO Q4H PRN Constipation Metoprolol Tartrate 12.5 mg 04/11/22 08:55 04/15/22 06:19 Metoprolol Tartrate 25 Mg Tab FEEDTUBE Not Given Q6HR [facility] Nitroglycerin 0.2 mg 04/11/22 06:00 04/14/22 05:07 Nitroglycerin 0.2 Mg Patch 24hr TD Not Given QDAY@0600 [facility] Ondansetron HCl 4 mg 04/02/22 23:53 Ondansetron 4 Mg/2 Ml Inj IV Q8H PRN Nausea And Vomiting Polyethylene Glycol 17 gm 04/08/22 10:00 04/14/22 10:03 Polyethylene Glycol 3350 17 Gm Powder PO 17 gm QDAY [facility] Administration Quetiapine Fumarate 100 mg 04/12/22 14:00 04/15/22 06:21 Quetiapine 25 Mg Tab PO Not Given 0600,1600 [facility] Quetiapine Fumarate 50 mg 04/12/22 14:01 04/14/22 22:23 Quetiapine 25 Mg Tab PO Not Given QHS [facility] Senna 17.6 mg 04/03/22 22:00 04/14/22 22:20 Sennosides Oral Liqd 8.8 Mg/5 Ml Oral Liqd PO Not Given Q12HR SEGUNDO Sodium Chloride 10 ml 04/03/22 10:00 04/14/22 23:59 Sodium Chloride 0.9% 10 Ml Flush Syringe IV 10 ml BID SEGUNDO Administration Sodium Chloride 10 ml 04/02/22 23:53 Sodium Chloride 0.9% 10 Ml Flush Syringe IV PRN PRN LINE FLUSH Nutrition/Malnutrition Assess - Dietary Evaluation Nutrition/Malnutrition Findings: Nutrition Notes Start: 04/04/22 13:13 Freq: Status: Active Protocol: Document 04/13/22 12:41 COLLEEN (Rec: 04/13/22 13:09 COLLEEN [id number]) Nutrition Notes Initial or Follow up Reassessment Current Diagnosis Coronary Artery Disease, Respiratory Failure, Malnutrition Other Pertinent Diagnosis HCAP, HFpEF, ALS, Pleural Effusion, R-Lung Collapse, Hypotension, ... Current Diet NPO (since 04/13 00:01). Labs/Tests 04/13: Cl 93.9, CO2 39, Crea < 0.2, Phos 1.9. Pertinent Medications 04/13: Nutritionally unremarkable. Height 5 ft 4.8 in Weight 46.8 kg [place] Body Weight (kg) 61.27 BMI 17.2 Weight change and time frame No body weight change reported in 9 days. Weight Status Underweight Subjective/Other Information RD consult for routine F/U on TF tolerance/continuation. Pt currently on NPO. Pt is on Mechanical ventilation, O2 saturation @ 96%, according to Physical Assessment Histroy notes. Pt is awake and tracking, but unable to follow simple commands, according to Progress notes. Procedure planned for 04/13: Trach/PEG, but with moderate to high risk of associated cardiac event, according to Progress notes. Pt to be placed on LTAC facility after procedure. Percent of energy/protein needs met: Pt currently on NPO. Prescribed TF-Vital AF 1.2 Inderjit @ 50 ml/hr provides for energy/protein needs (1,450 Kcal/91 g) during LOS, 98% Kcal; 100% AA. Burn Absent Trauma Absent GI Symptoms Constipation Difficulty In Swallowing,Chewing Food Allergy No Skin Integrity/Comment Sacral skin tear. Current % PO Other Minimum of two criteria No #1 Nutrition Diagnosis Inadequate oral intake Comments: Procedure planned for 04/13: Trach/PEG, but with moderate to high risk of associated cardiac event, according to Progress notes. Diagnosis Progress(for reassessment Continues documentation) Is patient on ventilator? Yes Is Patient Ambulatory and/or Out of Bed No REE-([place]-St. Jeor-confined to bed) [phone] Calculation Used for Recommendations [place] Jeor Additional Notes Protein: 1.2-2 g/Kg IBW; 73- 122 g/day. Fluids: 1 ml/Kcal, or as per MD. Nutrition Intervention Nutrition Support: When pertinent, resume TF- Vital AF 1.2 Inderjit @ 50 ml/hr. Flush: 80 ml water Q 4 hr, or as per MD. Kcal 1,450 Protein (gm) 91 Carbohydrates (gm) 134 Fat (gm) 65 Fluid (mL) 980 Fiber (gm) 6 % RDI: 98% Kcal; 100% AA. Goal #1 Provide at least 75% of energy /protein needs through Enteral Feeding during LOS. Goal #2 Maintain body weight within +/ -3% of admission body weight during LOS. Follow-Up By: 04/20/22 Additional Comments When pertinent, continue monitoring TF tolerance and BM . <DIXIE BROWN - Last Filed: 04/16/22 07:09> Assessment and Plan Assessment and plan: I saw and evaluated the patient. I agree with the findings and the plan of care as documented in the Nurse Practitioner's~note, with the following corrections and additions. Hospitalist Physical - Constitutional Vitals: Temp Pulse Resp BP Pulse Ox 98.8 F 111 H 14 123/73 95 04/16/22 04:00 04/16/22 06:21 04/16/22 05:00 04/16/22 06:21 04/16/22 05:00 HEART Score - HEART Score Troponin: Troponin T 0.031 ng/mL (0.00-0.029) H 04/08/22 17:47 Results - Labs CBC & Chem 7: 04/16/22 04:16 04/16/22 04:16 Labs: Laboratory Last Values WBC 12.6 K/mm3 (4.5-11.0) H 04/16/22 04:16 RBC 3.09 M/mm3 (3.65-5.03) L 04/16/22 04:16 Hgb 9.5 gm/dl (11.8-15.2) L 04/16/22 04:16 Hct 29.1 % (35.5-45.6) L 04/16/22 04:16 MCV 94 fl (84-94) 04/16/22 04:16 MCH 31 pg (28-32) 04/16/22 04:16 MCHC 33 % (32-34) 04/16/22 04:16 RDW 13.9 % (13.2-15.2) 04/16/22 04:16 Plt Count 400 K/mm3 (140-440) 04/16/22 04:16 Lymph % (Auto) 4.3 % (13.4-35.0) L 04/07/22 03:51 [place] % (Auto) 8.8 % (0.0-7.3) H 04/07/22 03:51 Eos % (Auto) 0.1 % (0.0-4.3) 04/07/22 03:51 Baso % (Auto) 0.2 % (0.0-1.8) 04/07/22 03:51 Lymph # (Auto) 0.6 K/mm3 (1.2-5.4) L 04/07/22 03:51 Louisa # (Auto) 1.3 K/mm3 (0.0-0.8) H 04/07/22 03:51 Eos # (Auto) 0.0 K/mm3 (0.0-0.4) 04/07/22 03:51 Baso # (Auto) 0.0 K/mm3 (0.0-0.1) 04/07/22 03:51 Add Manual Diff Complete 04/02/22 19:39 Total Counted 100 04/02/22 19:39 Seg Neutrophils % 86.6 % (40.0-70.0) H 04/07/22 03:51 Seg Neuts % (Manual) 94.0 % (40.0-70.0) H 04/02/22 19:39 Band Neutrophils % 0 % 04/02/22 19:39 Lymphocytes % (Manual) 1.0 % (13.4-35.0) L 04/02/22 19:39 Reactive Lymphs % (Man) 0 % 04/02/22 19:39 Monocytes % (Manual) 5.0 % (0.0-7.3) 04/02/22 19:39 Eosinophils % (Manual) 0 % (0.0-4.3) 04/02/22 19:39 Basophils % (Manual) 0 % (0.0-1.8) 04/02/22 19:39 Metamyelocytes % 0 % 04/02/22 19:39 Myelocytes % 0 % 04/02/22 19:39 Promyelocytes % 0 % 04/02/22 19:39 Blast Cells % 0 % 04/02/22 19:39 Nucleated RBC % Not Reportable 04/02/22 19:39 Seg Neutrophils # 12.7 K/mm3 (1.8-7.7) H 04/07/22 03:51 Seg Neutrophils # Man 13.4 K/mm3 (1.8-7.7) H 04/02/22 19:39 Band Neutrophils # 0.0 K/mm3 04/02/22 19:39 Lymphocytes # (Manual) 0.1 K/mm3 (1.2-5.4) L 04/02/22 19:39 Abs React Lymphs (Man) 0.0 K/mm3 04/02/22 19:39 Monocytes # (Manual) 0.7 K/mm3 (0.0-0.8) 04/02/22 19:39 Eosinophils # (Manual) 0.0 K/mm3 (0.0-0.4) 04/02/22 19:39 Basophils # (Manual) 0.0 K/mm3 (0.0-0.1) 04/02/22 19:39 Metamyelocytes # 0.0 K/mm3 04/02/22 19:39 Myelocytes # 0.0 K/mm3 04/02/22 19:39 Promyelocytes # 0.0 K/mm3 04/02/22 19:39 Blast Cells # 0.0 K/mm3 04/02/22 19:39 WBC Morphology Not Reportable 04/02/22 19:39 Hypersegmented Neuts Not Reportable 04/02/22 19:39 Hyposegmented Neuts Not Reportable 04/02/22 19:39 Hypogranular Neuts Not Reportable 04/02/22 19:39 Smudge Cells Not Reportable 04/02/22 19:39 Toxic Granulation Not Reportable 04/02/22 19:39 Toxic Vacuolation Not Reportable 04/02/22 19:39 Dohle Bodies Not Reportable 04/02/22 19:39 Pelger-Huet Anomaly Not Reportable 04/02/22 19:39 Terry Rods Not Reportable 04/02/22 19:39 Platelet Estimate Consistent w auto 04/02/22 19:39 Clumped Platelets Not Reportable 04/02/22 19:39 Plt Clumps, EDTA Not Reportable 04/02/22 19:39 Large Platelets Not Reportable 04/02/22 19:39 Giant Platelets Not Reportable 04/02/22 19:39 Platelet Satelliting Not Reportable 04/02/22 19:39 Plt Morphology Comment Not Reportable 04/02/22 19:39 RBC Morphology Not Reportable 04/02/22 19:39 Dimorphic RBCs Not Reportable 04/02/22 19:39 Polychromasia Not Reportable 04/02/22 19:39 Hypochromasia Not Reportable 04/02/22 19:39 Poikilocytosis Not Reportable 04/02/22 19:39 Anisocytosis 1+ 04/02/22 19:39 Microcytosis Not Reportable 04/02/22 19:39 Macrocytosis Not Reportable 04/02/22 19:39 Spherocytes Not Reportable 04/02/22 19:39 Pappenheimer Bodies Not Reportable 04/02/22 19:39 Sickle Cells Not Reportable 04/02/22 19:39 Target Cells Not Reportable 04/02/22 19:39 Tear Drop Cells Not Reportable 04/02/22 19:39 Ovalocytes Not Reportable 04/02/22 19:39 Helmet Cells Not Reportable 04/02/22 19:39 [place] Bodies Not Reportable 04/02/22 19:39 [place] Rings Not Reportable 04/02/22 19:39 [place] Cells Not Reportable 04/02/22 19:39 Bite Cells Not Reportable 04/02/22 19:39 Crenated Cell Not Reportable 04/02/22 19:39 Elliptocytes Not Reportable 04/02/22 19:39 Acanthocytes (Spur) Not Reportable 04/02/22 19:39 Rouleaux Not Reportable 04/02/22 19:39 Hemoglobin C Crystals Not Reportable 04/02/22 19:39 Schistocytes Not Reportable 04/02/22 19:39 Malaria parasites Not Reportable 04/02/22 19:39 [place] Bodies Not Reportable 04/02/22 19:39 Hem Pathologist Commnt No 04/02/22 19:39 PT 13.6 Sec. (12.2-14.9) 04/13/22 04:30 INR 0.94 (0.87-1.13) 04/13/22 04:30 APTT 35.7 Sec. (24.2-36.6) 04/07/22 03:51 ABG pH 7.383 pH Units (7.350-7.450) 04/14/22 09:10 ABG pCO2 76.5 mm Hg 04/14/22 09:10 ABG pO2 66.9 mm Hg (80.0-90.0) L 04/14/22 09:10 ABG HCO3 44.5 mmol/L (20.0-26.0) H 04/14/22 09:10 ABG O2 Saturation 96.4 % (95.0-99.0) 04/14/22 09:10 ABG O2 Content 10.9 (0.0-44) 04/14/22 09:10 ABG Base Excess 17.2 mmol/L (-2.0-3.0) H 04/14/22 09:10 ABG Hemoglobin 8.1 gm/dl (14.0-18.0) L 04/14/22 09:10 ABG Carboxyhemoglobin 1.3 % (0.0-5.0) 04/14/22 09:10 ABG Methemoglobin 0.3 % (0.0-1.5) 04/14/22 09:10 Oxyhemoglobin 94.8 % (95.0-99.0) L 04/14/22 09:10 FiO2 55 % 04/14/22 09:10 Sodium 143 mmol/L (137-145) 04/16/22 04:16 Potassium 3.8 mmol/L (3.6-5.0) 04/16/22 04:16 Chloride 97.6 mmol/L (98-107) L 04/16/22 04:16 Carbon Dioxide 36 mmol/L (22-30) H 04/16/22 04:16 Anion Gap 13 mmol/L 04/16/22 04:16 BUN 14 mg/dL (9-20) 04/16/22 04:16 Creatinine < 0.2 mg/dL (0.8-1.3) L 04/16/22 04:16 Estimated GFR > 60 ml/min 04/16/22 04:16 BUN/Creatinine Ratio 70 % 04/16/22 04:16 Glucose 109 mg/dL (75-100) H 04/16/22 04:16 POC Glucose 120 mg/dL (70-105) H 04/16/22 05:00 Lactic Acid 1.90 mmol/L (0.7-2.0) 04/02/22 19:39 Calcium 8.7 mg/dL (8.4-10.2) 04/16/22 04:16 Phosphorus 3.40 mg/dL (2.5-4.5) 04/15/22 04:44 Magnesium 1.90 mg/dL (1.7-2.3) 04/15/22 04:44 Total Bilirubin 0.80 mg/dL (0.1-1.2) 04/02/22 19:39 AST 15 units/L (5-40) 04/02/22 19:39 ALT 9 units/L (7-56) 04/02/22 19:39 Alkaline Phosphatase 43 units/L (35-129) 04/02/22 19:39 Total Creatine Kinase 46 units/L (55-170) L 04/08/22 17:47 CK-MB (CK-2) 2.6 ng/mL (0.0-4.0) 04/08/22 17:47 CK-MB (CK-2) Rel Index 5.6 (0-4) H 04/08/22 17:47 Troponin T 0.031 ng/mL (0.00-0.029) H 04/08/22 17:47 C-Reactive Protein 31.60 mg/dL (0.00-1.30) H 04/04/22 04:18 Total Protein 4.6 g/dL (6.3-8.2) L 04/02/22 19:39 Albumin 2.7 g/dL (3.9-5) L 04/02/22 19:39 Albumin/Globulin Ratio 1.4 % 04/02/22 19:39 Triglycerides 80 mg/dL (2-149) 04/02/22 19:39 Cholesterol 94 mg/dL (50-199) 04/02/22 19:39 LDL Cholesterol Direct 27 mg/dL (50-130) L 04/02/22 19:39 HDL Cholesterol 47 mg/dL (40-59) 04/02/22 19:39 Cholesterol/HDL Ratio 2.00 % 04/02/22 19:39 Procalcitonin 0.08 ng/mL (<0.15) 04/04/22 04:18 Urine Color Aracely (Yellow) 04/05/22 17:45 Urine Turbidity Cloudy (Clear) 04/05/22 17:45 Urine pH 5.0 (5.0-7.0) 04/05/22 17:45 Ur Specific [place] 1.021 (1.003-1.030) 04/05/22 17:45 Urine Protein 30 mg/dl mg/dL (Negative) 04/05/22 17:45 Urine Glucose (UA) Neg mg/dL (Negative) 04/05/22 17:45 Urine Ketones Tr mg/dL (Negative) 04/05/22 17:45 Urine Blood Sm (Negative) 04/05/22 17:45 Urine Nitrite Neg (Negative) 04/05/22 17:45 Urine Bilirubin Neg (Negative) 04/05/22 17:45 Urine Urobilinogen < 2.0 mg/dL (<2.0) 04/05/22 17:45 Ur Leukocyte Esterase Tr (Negative) 04/05/22 17:45 Urine WBC (Auto) 8.0 /HPF (0.0-6.0) H 04/05/22 17:45 Urine RBC (Auto) 3.0 /HPF (0.0-6.0) 04/05/22 17:45 U Epithel Cells (Auto) 2.0 /HPF (0-13.0) 04/05/22 17:45 Urine Bacteria (Auto) 1+ /HPF (Negative) 04/02/22 Unknown Hyaline Casts 1 /LPF 04/05/22 17:45 Urine Mucus 3+ /HPF 04/05/22 17:45 Nasal Screen MRSA (PCR) Negative (Negative) 04/05/22 12:37 Vancomycin Trough 6.0 ug/mL (5.0-20.0) 04/05/22 18:53 Coronavirus (PCR) Negative (Negative) 04/07/22 14:52 Perez/IV: Voiding Method Condom Catheter Active Medications - Current Medications Current Medications: Generic Name Dose Route Start Last Admin Trade Name Freq PRN Reason Stop Dose Admin Acetaminophen 650 mg 04/02/22 23:53 04/11/22 17:31 Acetaminophen 325 Mg Tab PO 650 mg Q6H PRN Administration Pain MILD(1-3)/Fever >100.5/FAITH Acetylcysteine 200 mg 04/15/22 10:00 04/16/22 00:00 Acetylcysteine 10% 100 Mg/1 Ml *For Inhalation Use* INHALATION 200 mg Q8HRT SEGUNDO Administration Acetylcysteine 200 mg 04/15/22 09:00 04/15/22 17:43 Acetylcysteine 20% 200 Mg/1 Ml *For Inhalation Use* INHALATION 04/16/22 08:59 200 mg ONCE PRN Administration For bronchoscopy Albuterol 2.5 mg 04/06/22 16:00 04/16/22 00:00 Albuterol 2.5 Mg/3 Ml Nebu IH 2.5 mg Q8HRT SEGUNDO Administration Bisacodyl 10 mg 04/07/22 09:44 04/12/22 10:06 Bisacodyl 10 Mg Rect Supp DE 10 mg QDAY PRN Administration Constipation Dextrose 50 ml 04/06/22 17:54 Dextrose 50% In Water (25gm) 50 Ml Syringe IV Q30MIN PRN Hypoglycemia Protocol Docusate Sodium 100 mg 04/03/22 15:00 04/16/22 02:35 Docusate Sodium 100 Mg/10 Ml Oral Liqd PO Not Given BID SEGUNDO Famotidine 20 mg 04/06/22 10:00 04/15/22 22:11 Famotidine 20 Mg Tab FEEDTUBE 20 mg BID SEGUNDO Administration Fentanyl 50 mcg 04/04/22 15:56 04/15/22 01:44 Fentanyl 100 Mcg/2 Ml Inj IV 50 mcg Q2HR PRN Administration For CPOT of greater than 3 Fentanyl 100 mcg 04/15/22 18:00 04/15/22 17:12 Fentanyl 100 Mcg/2 Ml Inj IV 100 mcg ONCE SEGUNDO Administration Heparin Sodium (Porcine) 5,000 unit 04/03/22 06:00 04/16/22 06:22 Heparin 5,000 Unit/1 Ml Vial SUB-Q 5,000 unit Q8HR SEGUNDO Administration Dexmedetomidine HCl 400 mcg/ 104 mls @ 2.434 mls/hr 04/03/22 07:00 04/14/22 14:55 Sodium Chloride IV 0 mcg/kg/hr TITRATE SEGUNDO 0 mls/hr Titration Protocol 0.2 MCG/KG/HR Cefepime HCl 1 gm in 100 mls @ 200 mls/hr 04/15/22 21:00 04/16/22 06:18 Cefepime/Ns 1 Gm/100 Ml IV 04/19/22 20:59 200 mls/hr Q8H SEGUNDO Administration Protocol Sodium Chloride 250 mls @ 999 mls/hr 04/15/22 17:50 Nacl 0.9% 250ml IV ONCE SEGUNDO Insulin Human Regular 0 units 04/06/22 18:00 04/16/22 02:34 Insulin Regular, Human 100 Units/1 Ml SUB-Q Not Given Q6H [facility] Protocol Magnesium Hydroxide 30 ml 04/02/22 23:53 Magnesium Hydroxide (Mom) Oral Liqd Udc PO Q4H PRN Constipation Metoprolol Tartrate 12.5 mg 04/11/22 08:55 04/16/22 06:21 Metoprolol Tartrate 25 Mg Tab FEEDTUBE 12.5 mg Q6HR SEGUNDO Administration Midazolam HCl 4 mg 04/15/22 18:00 04/15/22 17:15 Midazolam 5 Mg/5 Ml Inj Mdv IV 4 mg ONCE SEGUNDO Administration Ondansetron HCl 4 mg 04/02/22 23:53 Ondansetron 4 Mg/2 Ml Inj IV Q8H PRN Nausea And Vomiting Polyethylene Glycol 17 gm 04/08/22 10:00 04/15/22 09:02 Polyethylene Glycol 3350 17 Gm Powder PO Not Given QDAY SEGUNDO Quetiapine Fumarate 100 mg 04/12/22 14:00 04/16/22 06:20 Quetiapine 25 Mg Tab PO 100 mg 0600,1600 SEGUNDO Administration Quetiapine Fumarate 50 mg 04/12/22 14:01 04/16/22 02:34 Quetiapine 25 Mg Tab PO 50 mg QHS SEGUNDO Administration Senna 17.6 mg 04/03/22 22:00 04/16/22 02:35 Sennosides Oral Liqd 8.8 Mg/5 Ml Oral Liqd PO Not Given Q12HR SEGUNDO Sodium Chloride 10 ml 04/03/22 10:00 04/16/22 06:17 Sodium Chloride 0.9% 10 Ml Flush Syringe IV 10 ml BID SEGUNDO Administration Sodium Chloride 10 ml 04/02/22 23:53 Sodium Chloride 0.9% 10 Ml Flush Syringe IV PRN PRN LINE FLUSH Nutrition/Malnutrition Assess - Dietary Evaluation Nutrition/Malnutrition Findings: Nutrition Notes Start: 04/04/22 13:13 Freq: Status: Active Protocol: Document 04/13/22 12:41 COLLEEN (Rec: 04/13/22 13:09 COLLEEN [id number]) Nutrition Notes Initial or Follow up Reassessment Current Diagnosis Coronary Artery Disease, Respiratory Failure, Malnutrition Other Pertinent Diagnosis HCAP, HFpEF, ALS, Pleural Effusion, R-Lung Collapse, Hypotension, ... Current Diet NPO (since 04/13 00:01). Labs/Tests 04/13: Cl 93.9, CO2 39, Crea < 0.2, Phos 1.9. Pertinent Medications 04/13: Nutritionally unremarkable. Height 5 ft 4.8 in Weight 46.8 kg [place] Body Weight (kg) 61.27 BMI 17.2 Weight change and time frame No body weight change reported in 9 days. Weight Status Underweight Subjective/Other Information RD consult for routine F/U on TF tolerance/continuation. Pt currently on NPO. Pt is on Mechanical ventilation, O2 saturation @ 96%, according to Physical Assessment Histroy notes. Pt is awake and tracking, but unable to follow simple commands, according to Progress notes. Procedure planned for 04/13: Trach/PEG, but with moderate to high risk of associated cardiac event, according to Progress notes. Pt to be placed on LTAC facility after procedure. Percent of energy/protein needs met: Pt currently on NPO. Prescribed TF-Vital AF 1.2 Inderjit @ 50 ml/hr provides for energy/protein needs (1,450 Kcal/91 g) during LOS, 98% Kcal; 100% AA. Burn Absent Trauma Absent GI Symptoms Constipation Difficulty In Swallowing,Chewing Food Allergy No Skin Integrity/Comment Sacral skin tear. Current % PO Other Minimum of two criteria No #1 Nutrition Diagnosis Inadequate oral intake Comments: Procedure planned for 04/13: Trach/PEG, but with moderate to high risk of associated cardiac event, according to Progress notes. Diagnosis Progress(for reassessment Continues documentation) Is patient on ventilator? Yes Is Patient Ambulatory and/or Out of Bed No REE-([facility]-confined to bed) [phone] Calculation Used for Recommendations [facility] Additional Notes Protein: 1.2-2 g/Kg IBW; 73- 122 g/day. Fluids: 1 ml/Kcal, or as per MD. Nutrition Intervention Nutrition Support: When pertinent, resume TF- Vital AF 1.2 Inderjit @ 50 ml/hr. Flush: 80 ml water Q 4 hr, or as per MD. Kcal 1,450 Protein (gm) 91 Carbohydrates (gm) 134 Fat (gm) 65 Fluid (mL) 980 Fiber (gm) 6 % RDI: 98% Kcal; 100% AA. Goal #1 Provide at least 75% of energy /protein needs through Enteral Feeding during LOS. Goal #2 Maintain body weight within +/ -3% of admission body weight during LOS. Follow-Up By: 04/20/22 Additional Comments When pertinent, continue monitoring TF tolerance and BM .
[2022-04-15] MEDS ORDERED: ACETYLCYSTEINE 20% 200 MG/1 ML *FOR INHALATION USE INHALATION PRN (09:00)
[2022-04-15] MEDS: ACETYLCYSTEINE 10% 100 MG/1 ML *FOR INHALATION USE INHALATION SCH ×2 (09:00→16:15)
[2022-04-15] MEDS: POLYETHYLENE GLYCOL 3350 17 GM POWDER PO SCH (09:02)
[2022-04-15] MEDS: DOCUSATE SODIUM 100 MG/10 ML ORAL LIQD PO SCH (09:02)
[2022-04-15] MEDS: SENNOSIDES ORAL LIQD 8.8 MG/5 ML ORAL LIQD PO SCH (09:03)
[2022-04-15] MEDS: FAMOTIDINE 20 MG TAB FEEDTUBE SCH ×2 (09:32→22:11)
--- NOTE | 2022-04-15 11:54 | Progress Note ---
Assessment and Plan - Patient Problems (1) Respiratory failure Current Visit: Yes Status: Acute Plan to address problem: Patient presented with acute respiratory failure, with chest x-ray showing total whiteout of the right lung, due to acute pneumonia, large right pleural effusion and collapse of the right lung. Continue supportive management, antibiotics. (2) Acute coronary syndrome Current Visit: Yes Status: Acute Plan to address problem: The patient's interval ECGs while in the ICU showed dynamic changes of anterior wall ischemia or infarction. Patient has severe comorbidities including progressive total paralysis of ALS, and intercurrent respiratory failure with large right pleural effusion and total collapse of the right lung. Currently assessed as a poor candidate for aggressive cardiac management due to the multiple severe acute and chronic comorbidities. He has been placed on conservative, empiric coronary artery disease medical therapy. A trach PEG procedure has been completed, discharge planning back to hospice is in progress. Subjective Date of service: 04/15/22 Principal diagnosis: Ac and ch hypercapnic and hypoxemic Resp Failure; ALS; HCAP; Sepsis; NSTEMI Interval history: Patient is awake, on the vent, no acute distress is noted. He has undergone successful tracheostomy, and is currently on the vent via the trach. Telemetry shows a stable sinus rhythm, and stable hemodynamics. Objective Vital Signs Temp Pulse Pulse Pulse Resp Resp BP 04/15/22 11:00 107 H 14 131/82 04/15/22 10:45 105 H 15 137/87 04/15/22 10:31 105 H 15 137/87 04/15/22 10:15 93 H 15 137/87 04/15/22 10:00 112 H 16 137/87 04/15/22 09:45 96 H 14 128/84 04/15/22 09:31 108 H 16 128/84 04/15/22 09:15 109 H 15 128/84 04/15/22 09:00 114 H 17 128/84 04/15/22 08:45 88 14 120/75 04/15/22 08:39 94 H 15 04/15/22 08:31 101 H 14 120/75 04/15/22 08:15 100 H 31 H 120/75 04/15/22 08:00 99 F 94 H 99 H 15 120/75 04/15/22 07:45 98 H 31 H 119/77 04/15/22 07:31 113 H 32 H 119/77 04/15/22 07:15 109 H 33 H 119/77 04/15/22 07:00 118 H 18 119/77 04/15/22 06:45 106 H 21 117/69 04/15/22 06:31 100 H 18 117/69 04/15/22 06:15 78 12 117/69 04/15/22 06:00 99 H 98 H 14 117/69 04/15/22 05:45 92 H 15 119/72 04/15/22 05:30 101 H 14 119/72 04/15/22 05:15 109 H 17 119/72 04/15/22 05:00 90 15 119/72 04/15/22 04:45 85 14 135/79 04/15/22 04:41 99 H 135/79 04/15/22 04:31 107 H 15 135/79 04/15/22 04:15 104 H 14 135/79 04/15/22 04:01 109 H 17 126/75 04/15/22 04:00 98.8 F 04/15/22 03:45 110 H 11 L 126/75 04/15/22 03:31 114 H 16 126/75 04/15/22 03:15 108 H 18 126/75 04/15/22 03:00 109 H 17 126/75 04/15/22 02:45 107 H 16 120/71 04/15/22 02:30 108 H 15 120/71 04/15/22 02:15 110 H 17 113/72 04/15/22 02:00 105 H 104 H 15 113/72 04/15/22 01:45 104 H 14 112/67 04/15/22 01:30 109 H 14 112/67 04/15/22 01:15 105 H 14 117/71 04/15/22 01:00 108 H 14 117/71 04/15/22 00:45 103 H 13 113/69 04/15/22 00:30 94 H 14 113/69 04/15/22 00:15 105 H 15 127/85 04/15/22 00:00 98.4 F 110 H 19 127/85 04/14/22 23:45 110 H 16 130/84 04/14/22 23:30 108 H 15 130/84 04/14/22 23:29 110 H 134/79 04/14/22 23:25 104 H 16 06/08/22 23:23 112 H 16 134/79 04/14/22 23:15 104 H 15 134/79 04/14/22 23:00 107 H 18 134/79 04/14/22 22:45 108 H 14 130/77 04/14/22 22:30 105 H 15 130/77 04/14/22 22:15 109 H 16 124/77 04/14/22 22:00 104 H 104 H 14 124/77 04/14/22 21:45 102 H 14 134/77 04/14/22 21:30 104 H 15 134/77 04/14/22 21:15 111 H 18 138/67 04/14/22 21:00 106 H 14 138/67 04/14/22 20:45 107 H 17 129/70 04/14/22 20:30 106 H 14 129/70 04/14/22 20:15 106 H 14 136/82 04/14/22 20:00 98.2 F 111 H 15 136/82 04/14/22 19:49 108 H 130/79 04/14/22 19:45 111 H 14 130/79 04/14/22 19:30 110 H 14 130/79 04/14/22 19:15 115 H 16 127/73 04/14/22 19:00 107 H 14 144/81 04/14/22 18:45 105 H 14 144/81 04/14/22 18:30 108 H 14 144/81 04/14/22 18:15 110 H 14 127/73 04/14/22 18:07 104 H 04/14/22 18:05 104 H 14 04/14/22 18:00 109 H 14 127/73 04/14/22 17:45 108 H 14 128/74 04/14/22 17:40 98 F 04/14/22 17:30 102 H 14 128/74 04/14/22 17:15 111 H 15 104/65 04/14/22 17:12 88 14 104/65 04/14/22 17:00 98 H 14 150/120 04/14/22 16:45 104/65 04/14/22 14:45 88 14 104/65 04/14/22 14:30 84 14 104/65 04/14/22 14:15 83 14 117/73 04/14/22 14:00 89 14 109/72 04/14/22 13:45 97 H 14 117/73 04/14/22 13:30 99 H 14 117/73 04/14/22 13:15 97 H 14 111/70 04/14/22 13:00 90 14 110/71 04/14/22 12:45 89 14 111/70 04/14/22 12:30 99 H 14 111/70 04/14/22 12:15 93 H 14 108/62 04/14/22 12:00 88 88 14 108/62 Pulse Ox Pulse Ox 04/15/22 11:00 98 04/15/22 10:45 98 04/15/22 10:31 98 04/15/22 10:15 99 04/15/22 10:00 97 04/15/22 09:45 99 04/15/22 09:31 99 04/15/22 09:15 99 04/15/22 09:00 96 04/15/22 08:45 99 99 04/15/22 08:39 04/15/22 08:31 99 04/15/22 08:15 100 04/15/22 08:00 98 04/15/22 07:45 99 04/15/22 07:31 99 04/15/22 07:15 99 04/15/22 07:00 97 04/15/22 06:45 99 04/15/22 06:31 99 04/15/22 06:15 100 04/15/22 06:00 100 04/15/22 05:45 100 04/15/22 05:30 100 04/15/22 05:15 99 04/15/22 05:00 04/15/22 04:45 97 04/15/22 04:41 98 98 04/15/22 04:31 97 04/15/22 04:15 96 04/15/22 04:01 97 04/15/22 04:00 04/15/22 03:45 04/15/22 03:31 04/15/22 03:15 100 04/15/22 03:00 04/15/22 02:45 96 04/15/22 02:30 92 04/15/22 02:15 97 04/15/22 02:00 95 04/15/22 01:45 97 04/15/22 01:30 97 04/15/22 01:15 98 04/15/22 01:00 98 04/15/22 00:45 98 04/15/22 00:30 04/15/22 00:15 04/15/22 00:00 04/14/22 23:45 04/14/22 23:30 04/14/22 23:29 97 04/14/22 23:25 04/14/22 23:23 96 04/14/22 23:15 97 04/14/22 23:00 93 04/14/22 22:45 97 04/14/22 22:30 04/14/22 22:15 97 04/14/22 22:00 98 04/14/22 21:45 97 04/14/22 21:30 96 04/14/22 21:15 97 04/14/22 21:00 100 04/14/22 20:45 96 04/14/22 20:30 95 04/14/22 20:15 96 04/14/22 20:00 96 04/14/22 19:49 98 98 04/14/22 19:45 98 04/14/22 19:30 04/14/22 19:15 99 04/14/22 19:00 99 04/14/22 18:45 99 04/14/22 18:30 04/14/22 18:15 99 04/14/22 18:07 04/14/22 18:05 97 04/14/22 18:00 98 04/14/22 17:45 98 04/14/22 17:40 04/14/22 17:30 98 04/14/22 17:15 96 04/14/22 17:12 97 04/14/22 17:00 97 04/14/22 16:45 91 04/14/22 14:45 90 04/14/22 14:30 87 04/14/22 14:15 89 04/14/22 14:00 94 04/14/22 13:45 97 04/14/22 13:30 96 04/14/22 13:15 96 04/14/22 13:00 95 04/14/22 12:45 94 04/14/22 12:30 94 04/14/22 12:15 94 04/14/22 12:00 95 - Physical Examination General: Other (Awake, on the vent via a tracheostomy) HEENT: Positive: PERRL, Normocephaly, Other (ET-tube in place) Neck: Positive: neck supple, trachea midline (intubated). Negative: JVD/HJR Cardiac: Positive: Reg Rate and Rhythm Lungs: Positive: Decreased Breath Sounds Neuro: Positive: Other (Awake, on the vent via tracheostomy) Abdomen: Positive: Soft Skin: Positive: Clear Extremities: Present: Other (TR.EDEMA). Absent: edema (NO) - Labs and Meds CBC 04/15/22 Range/Units 04:44 WBC 13.0 H (4.5-11.0) K/mm3 RBC 3.19 L (3.65-5.03) M/mm3 Hgb 9.6 L (11.8-15.2) gm/dl Hct 30.2 L (35.5-45.6) % Plt Count 456 H (140-440) K/mm3 Comprehensive Metabolic Panel 04/15/22 Range/Units 04:44 Sodium 142 (137-145) mmol/L Potassium 3.9 (3.6-5.0) mmol/L Chloride 95.5 L (98-107) mmol/L Carbon Dioxide 37 H (22-30) mmol/L BUN 14 (9-20) mg/dL Creatinine < 0.2 L (0.8-1.3) mg/dL Glucose 89 (75-100) mg/dL Calcium 8.7 (8.4-10.2) mg/dL - Allied health notes Allied health notes reviewed: nursing
[2022-04-15] MEDS ORDERED: LIDOCAINE (1%) 10 MG/1 ML VIAL 20 ML MDV ONE (13:10)
--- NOTE | 2022-04-15 13:38 | Progress Note ---
Assessment and Plan Cultures: 04/02/2022 urine culture: No growth 04/02/2022 sputum culture: Pseudomonas, Enterobacter 04/02/2022 blood culture: Bacillus in 1 set 04/05/2022 blood culture: No growth A/P: 57-year-old man with progressive ALS, recently hospitalized at [facility] and was discharged on hospice, readmitted here with: #Acute sepsis: With fevers and leukocytosis. Secondary to pneumonia. #Hospital-acquired pneumonia. Was recently seen at [facility], was initially discharged to home hospice, as such was not given antibiotics. Cultures here with Pseudomonas, Enterobacter. #Acute hypoxic respiratory failure: Currently on the vent. S/P trach, PEG #ALS: Was on home hospice. #Bacillus bacteremia: likely contaminant. Recs: -Chest x-ray shows right-sided whiteout, plan for possible bronchoscopy due to suspected mucous plugging -extend Cefepime by 4 more days to complete 14 days and then STOP Will sign off. Please call with questions or any new concerns. Carmen German MD, FACP, [place] [facility] ([facility]) O: [phone] F: [phone] C: [phone] Subjective Date of service: 04/15/22 Principal diagnosis: Ac and ch hypercapnic and hypoxemic Resp Failure; ALS; HCAP; Sepsis; NSTEMI Interval history: No fever. Awake. is at bedside. Remains on the vent, had trach and PEG yesterday. Objective - Exam Narrative Exam: Physical Exam: Constitutional: awake, intubated, on the vent Head, Ears, Nose: Normocephalic, atraumatic. External ears, nose normal Eyes: Conjunctivae/corneas clear. No icterus. No ptosis. Neck: track + Cardiovascular: S1, S2 + Respiratory: AE fair bilaterally and equal GI: Soft, bowel sounds +, PEG + Musculoskeletal: No pedal edema, no cyanosis. Skin: No rash or abscess Hem/Lymphatic: No palpable cervical or supraclavicular nodes. No lymphangitis Psych: no agitation Neurological: awake, on the vent, exam limited - Constitutional Vitals: Vital Signs Temp Pulse Resp BP Pulse Ox 98 F 103 H 15 142/85 99 04/15/22 12:00 04/15/22 13:11 04/15/22 13:11 04/15/22 12:45 04/15/22 13:11 Temperature -Last 24 Hours Temperature 98 F Temperature 99 F Temperature 98.8 F Temperature 98.4 F Temperature 98.2 F Temperature 98 F - Labs CBC & Chem 7: 04/15/22 04:44 04/15/22 04:44 Labs: Abnormal lab results 04/15/22 04/15/22 Range/Units 04:44 04:44 WBC 13.0 H (4.5-11.0) K/mm3 RBC 3.19 L (3.65-5.03) M/mm3 Hgb 9.6 L (11.8-15.2) gm/dl Hct 30.2 L (35.5-45.6) % MCV 95 H (84-94) fl Plt Count 456 H (140-440) K/mm3 Chloride 95.5 L (98-107) mmol/L Carbon Dioxide 37 H (22-30) mmol/L Creatinine < 0.2 L (0.8-1.3) mg/dL - Imaging and cardiology Chest x-ray: report reviewed, image reviewed (R lung whiteout)
[2022-04-15] MEDS ORDERED: SODIUM CHLORIDE 0.9% 250ML 250 ML IV SCH ×2 (17:19→17:50)
[2022-04-15] MEDS: SODIUM CHLORIDE 0.9% 500 ML 500 ML ONE ×2 (17:22→18:11)
--- NOTE | 2022-04-15 17:52 | XRay Report ---
CHEST 1 VIEW 04/15/2022 4:45 PM INDICATION / CLINICAL INFORMATION: Hypoxia. COMPARISON: Earlier today at 4:30 AM. FINDINGS: SUPPORT DEVICES: The position of the tracheostomy tube has not changed. HEART / MEDIASTINUM: Unchanged. LUNGS / PLEURA: Complete opacification of the right hemithorax has improved since earlier today with aerated lung now present in the upper lobe. Mild patchy parenchymal disease is present in the left pe rihilar region and lower lung, slightly increased.. No pneumothorax. ADDITIONAL FINDINGS: Gaseous distention of the stomach has resolved. IMPRESSION: 1. Improved aeration of the right upper lobe compared to earlier today. 2. Possible interstitial edema on the left appears slightly increased. 3. Gaseous distention of the stomach has resolved. Signer Name: Saroj Allan MD Signed: 04/15/2022 5:48 PM Workstation Name: [id number]
--- NOTE | 2022-04-15 17:54 | Procedure Note ---
Date of procedure: 04/15/22 Pre-op diagnosis: right lung hemiopacification, atelectasis Post-op diagnosis: same Procedure: Fiberoptic bronchoscopy, therapeutic suctioning and lavage, bronchial washings Consent was obtained, time our done, universal precautions addressed. IV fentanyl 100mcg and Midazolam 4mg was administered. Hemodynamic monitoring every 3 minutes during procedure. FIO2 was increased to 100% Elbow connector was attached to trach tube. Fiberoptic bronch inserted, the left lung was inspected- mild tracheobronchitis, with thin secretions Right lung the RML adn RLL had thick mucoid impaction. Saline and mucomyst lavages was done. Patient tolerated the procedure well. During the procedure, he had an episode of hypotension associated with conscious sedation. Blood pressure responded well to fluid bolus. Anesthesia: MAC Surgeon: CARLOS FLORES Estimated blood loss: none IV fluids: 500 Pathology: none Specimen disposition: to lab (Bronchial washings from RLL) Condition: critical Disposition: ICU
[2022-04-15] MEDS ORDERED: fentaNYL 100 MCG/2 ML INJ IV SCH (18:00)
[2022-04-15] MEDS ORDERED: MIDAZOLAM 5 MG/5 ML INJ MDV IV SCH (18:00)
[2022-04-15] MEDS: CEFEPIME/NS 1 GM/100 ML 1 GM/100 ML BAG IV SCH (21:07)
--- NOTE | 2022-04-16 01:14 | XRay Report ---
CHEST 1 VIEW INDICATION / CLINICAL INFORMATION: F/U- Respiratory Failure. COMPARISON: 04/15/2022 FINDINGS: SUPPORT DEVICES: Tracheostomy tube again projects in expected position HEART / MEDIASTINUM: No significant abnormality. LUNGS / PLEURA: Bilateral pulmonary opacities and moderate right pleural effusion have moderately imp roved. No pneumothorax. ADDITIONAL FINDINGS: No significant additional findings. IMPRESSION: 1. Interval improvement. Signer Name: Armando Sellers MD Signed: 04/16/2022 1:10 AM Workstation Name: [id number]
[2022-04-16] MEDS: METOPROLOL TARTRATE 25 MG TAB FEEDTUBE SCH ×4 (02:33→17:51)
[2022-04-16] MEDS: INSULIN REGULAR, HUMAN 100 UNITS/1 ML SUB-Q SCH ×4 (02:34→23:34)
[2022-04-16] MEDS: QUEtiapine 25 MG TAB PO SCH ×4 (02:34→21:25)
[2022-04-16] MEDS: DOCUSATE SODIUM 100 MG/10 ML ORAL LIQD PO SCH ×3 (02:35→21:24)
[2022-04-16] MEDS: SENNOSIDES ORAL LIQD 8.8 MG/5 ML ORAL LIQD PO SCH ×3 (02:35→21:22)
[2022-04-16 05:22] LABS: Hematocrit 29.1 % (35.5-45.6); Hemoglobin 9.5 gm/dl (11.8-15.2); Mean Corpuscular HGB Conc 33 % (32-34); Mean Corpuscular Volume 94 fl (84-94); Platelet Count 400 K/mm3 (140-440); Red Blood Count 3.09 M/mm3 (3.65-5.03); Red Cell Distribution Width 13.9 % (13.2-15.2)
[2022-04-16 05:28] LABS: Blood Urea Nitrogen 14 mg/dL (9-20); Calcium 8.7 mg/dL (8.4-10.2); Hemolysis Index 0
[2022-04-16 05:37] LABS: BUN/Creatinine Ratio 70
[2022-04-16] MEDS: CEFEPIME/NS 1 GM/100 ML 1 GM/100 ML BAG IV SCH ×3 (06:18→21:26)
[2022-04-16] MEDS: HEPARIN 5,000 UNIT/1 ML VIAL SUB-Q SCH ×3 (06:22→21:24)
[2022-04-16] MEDS: ALBUTEROL 2.5 MG/3 ML NEBU IH SCH ×4 (07:37→23:47)
[2022-04-16] MEDS: ACETYLCYSTEINE 10% 100 MG/1 ML *FOR INHALATION USE INHALATION SCH ×3 (08:03→15:38)
[2022-04-16] MEDS: POLYETHYLENE GLYCOL 3350 17 GM POWDER PO SCH (09:18)
[2022-04-16] MEDS: FAMOTIDINE 20 MG TAB FEEDTUBE SCH ×2 (09:18→21:23)
--- NOTE | 2022-04-16 11:03 | Progress Note ---
<ALEK SMITH - Last Filed: 04/16/22 17:15> Assessment and Plan Assessment and plan: This is a 57-year-old male with known history of ALS, recently hospitalized at [facility] admitted for acute hypoxemic respiratory failure 2/2 pneumonia Hospital Course to Date: 04/03: Intubated and Sedated on versed gtt, RASS-5. CT head/brain noted with no acute intracranial abnormality. Plan to initiated precededx gtt and wean off versed for a RASS goal of 0 to -2. CT chect also reviewed, findings are most consistent with acute bronchopneumonia. Continue empiric IV Abx, vent adjustment per CCM. ID consulted. Continue to F/U on cultures. Titrate pressor for MAP above 65. Medical records requested from [facility]. 04/04: Remains stable on the vent, easily arousable on precedex gtt, not following commands. Plan for SAT/SBT today. PRN analgesia for CPOT greater than 3. Fevers improved, cultures and procal pending. Continue current IV abx, ID also consulted. Remains on low dose pressors, titrate pressors for a MAP above 65. 04/05: Long discussion with family with use of translation phone with CCM regarding goals of care. Family to have meeting amongst themselves and informed care team of decisions. Fentanyl drip added for respiratory distress. Remains on Precedex drip. Antibiotics per ID. Given 2L NS bolus with levophed gtt 04/06: Family discussion with Dr. Grayson for goals of care. CXR shows possible mucus plug, continue CPT as FiO2 is being able to be weaned. Potassium repleted. Weaning fentnyl gtt. 04/07: Ultrasound guided thoracentesis today scheduled, inadequate amount of pleural effusion on so not completed. Patient was started on Levophed overnight which was weaned off this morning however had to be started twice a day. Remains on fentanyl and Precedex. Cardiology discontinued BB and ACEi in setting of hypotension. 04/08: COVID-19 PCR negative. Routine EEG ordered by cardiology which showed ST changes, cardiology aware. They will continue conservative treatment. Repeat troponins 0.030 which are less than admit of 0.048. Dr. Grayson had a long discu ssion with with the use of mail handlers supervisor today at bedside and has not made a decision regarding goals of care. Possible consult to surgery for trach/PEG early next week. Continues to require Precedex and fentanyl drip for sedation. Carvedilol/lisinopril discontinued as patient is continuously on Levophed. 04/09: No acute events reported overnight, remains on fentanyl, Precedex and Levophed drips. Dr. Grayson and Dr. Pineda updated family at bedside extensively today. Consulted surgery for trach/PEG. COVID-19 PCR negative. 04/10: Patient noted to have desaturation episodes, FiO2 increased slightly to 35%. Will add Mucomyst. Remains on fentanyl and Precedex. Off of Levophed. Surgery consulted for trach/PEG. 04/11: FiO2 increased over night likely related to hypoxia, continues on fent gtt, weaning precedex gtt as he is also on Seroquel. Will d/w CCM re scheduled or prn oxycodone 04/12: Periods of hypoxia and tachycardia this am. Symptoms improved post deep suction and tracheal lavage, Repeat CXR noted with no significant change. Continue CPT and mucomyst. Plan for possible trach/PEG tomorrow by general surgery. 04/13: Remains stable on the vent. Patient is wake and tracking but does not follow simple commands. No report of hypoxia from overnight, continue CPT and mucomyst. Plan for track and PEG today by General Surgery. Plan for LTAC placement post procedure, case management to arrange. 04/14: VIRGILIO overnight, Trach and PEG postponed for today by general surgery. Plan for LTAC placement post procedure, case management to arrange. 04/15: S/p Trach and PEG. Up to 80% FiO2 this am, this am CXR noted suggesting possible mucus plug. D/W [facility] plan for bronch today. Continue CPT and mucomyst. Plan of care thoroughly discussed with patient's and son (who translated for ) at the bedside. Per , vessel slag worker had already discussed the risks and benefits of the procedure yesterday. She verbalized understanding and agreed with procedure and current care plan, consent signed. Okay to use PEG-tube for meds this am, resume TF once okay by general Surgery. Case management to arrange LTAC placement. 04/16: s/p Bronchocopy by [facility]. FiO2 down to 60%, angela 10 this am. This am CXR with moderate improvement. Continue CPT and mucomyst, wean Fio2 as tolerated for SPO2 above 92%. Patient is tolerating TF, advance to goal as ordered. Possible LTAC placement, case management to arrange. Assessment and Plan #Acute Hypoxemic Respiratory Failure 2/2 #Acute Bronchopneumonia - Intubated in the ED on 04/02 for hypoxemia and airway protection - 04/14 s/p Trach and PEG - 04/15 CXR reviewed complete opacity of the righ side suggesting possible mucus plug. See report for detail - 04/15 s/p Bronchoscopy by [facility] - Vent setting: PRVC-60%,10,14,400 - Repeat CXR this am with moderate improvement - CCM consulted, appreciate recommendations - Continue IV abx per ID, CPT and mucomyst per [facility] - VAP bundle addressed - Aspiration precaution HOB above 30 - PRN ABG and CXR per [facility] - Continue SPO2 monitoring for SPO2 goal above 92% #Sepsis #Acute Bronchopneumonia #HCAP #Leukocytosis - CXR shows moderate to large layering effusion on the right, see report for full detail - CT chest also reviewed, findings are most consistent with acute bronchopneumonia. See report for full detail - Patient was recent hospitalized for pneumonia - Patient remains afebrile - Tracheal aspirate with Pseudomonas aeruginosa, Enterobacter aerogenes - 04/02 blood culture with bacillus species, 04/05 blood culture NGTD - CRP 31.6, procalcitonin 0.08 - MRSA negative - ID on consulted, appreciate recommendations - Continue IV Abx Cefepine per ID - Continue to F/U on cultures - Daily CBC monitor #Hypotension 2/2 sepsis-resolved #Suspect ischemic coronary artery disease #h/o cardiomyopathy - Low BP probably due to hypovolemia vs sedation vs infectious process - s/p Levophed gtt - Elevated troponin possibly a type II troponin leak - Cardiology consulted, appreciated recommendations - Echocardiogram shows ejection fraction of 40 to 45%, mild global hypokinesis of left ventricle - Continue BB - Continue blood pressure monitor per protocol - Maintain MAP above 65 - On heparin SubQ #Hypernatremia-resolved - Monitor and replace electrolytes as needed - Continue to trend BMP #Acute Metabolic Encephalopathy #H/o Amyotrophic Lateral Sclerosis #Nonverbal at Baseline - Presented with AMS, per family patient is nonverbal at baseline but responsive - CT head/Brain with no acute intracranial process - Off sedation. Awake and calm - Hold sedation for now - Continue Seroquel per CCM - Avoid benzodiazepine to reduce the possibility of delirium - PRN analgesia for CPOT greater than 3 - Maintenance of sleep-wake cycle #Thrombocytopenia-resolved - Continue to trend plt - On heparin subQ - Monitor for s/s of any active bleeding #Protein Caloric Malnutrition - Albumin 2.7, Total protein 4.6 - 04/15 s/p EPG-Tube placement - Continue enteral nutrition - Nutrition consulted #Constipation - Noted on CXR and KUB - last BM 04/15 - Continue BR #GI/DVT Prophylaxis - PPI- Pepcid - Heparin SubQ - SCDs to bilateral lower extremities while in bed #Advance Care Planning - Disease education data, care plan, diagnoses, and prognosis were discussed patient's , Carly Lopez, and patient daughter, Kaylee Warren, who translated for #[phone]. They reported that patient was following at [facility] for his ALS and during recent hospitalization at [facility] they were told nothing else can be offered to patient at this time and patient was discharge home with home hospice and PO morphine. First hospice visit was on , however, patient became unresponsive yesterday and they brought in to the hospital. - Goal of care and code status were also addressed at that time. Family wants to wait for a couple days to see how patient respond to current treatment before making a decision. All questions and concerns were addressed at this time. Patient family acknowledged understanding and agreement with care plan. - Patient remains a FULL CODE status -04/05: Discussion at bedside with interpreting service with Dr. Valdivia and family state they would discuss next steps amongst themselves and let healthcare team know of decisions -04/06: extensive discussion with family ( and son) with Dr. Grayson regarding goals of care -04/08: Extensive discussion with with the use of mail handlers supervisor line regarding goals of care; no decision made. Possible consult to surgery for trach/PEG early next week. -04/09: Discussion with and her sister with Dr. Grayson and then with Dr. Pineda-> Consulted surgery for trach/peg The high probability of a clinically significant, sudden or life threatening deterioration of the [multiple] system(s) required my full and direct attention, intervention and personal management. The aggregate critical care time was [60] minutes. This time is in addition to time spent performing reported procedures but includes the following: [x] Data Review and interpretation [x] Patient assessment and monitoring of vital signs [x] Documentation [x] Medication orders and management Disposition Plan: ICU Total Time Spent with Patient (Minutes): 60 History Interval history: Patient seen and examined at the bedside. Stable on the vent, drowsy but easily arousable with mild stimuli, not on any sedations. VSS. s/p bronchoscopy, Fi02 down to 60% this am. Patient is tolerating TF. VIRGILIO overnight Hospitalist Physical - Physical exam Narrative exam: General appearance: Present: no acute distress, cachectic, other (Trach and on the vent.Awake and tracking) - EENT Eyes: Present: PERRL - Neck Neck: Present: normal ROM - Respiratory Respiratory effort: normal Respiratory: bilateral: rhonchi - Cardiovascular Rhythm: regular Heart Sounds: Present: S1 & S2 - Extremities Extremities: no ischemia, pulses intact, pulses symmetrical Peripheral Pulses: within normal limits - Abdominal General gastrointestinal: soft, non-distended, normal bowel sounds - Integumentary Integumentary: Present: warm, dry - Psychiatric Psychiatric: other (Trach and on the vent. Awake and tracking, off sedations. Not following commands, probably due to language barrier) - Neurologic Neurologic: other (Trach and on the vent. Awake and tracking, off sedations. Not following commands, probably due to language barrier) - Allied Health Allied health notes reviewed: nursing, case management - Constitutional Vitals: Temp Pulse Resp BP Pulse Ox 97.9 F 126 H 14 129/72 91 04/16/22 08:00 04/16/22 10:00 04/16/22 10:00 04/16/22 10:00 04/16/22 10:00 HEART Score - HEART Score Troponin: Troponin T 0.031 ng/mL (0.00-0.029) H 04/08/22 17:47 Results - Labs CBC & Chem 7: 04/16/22 04:16 04/16/22 04:16 Labs: Laboratory Last Values WBC 12.6 K/mm3 (4.5-11.0) H 04/16/22 04:16 RBC 3.09 M/mm3 (3.65-5.03) L 04/16/22 04:16 Hgb 9.5 gm/dl (11.8-15.2) L 04/16/22 04:16 Hct 29.1 % (35.5-45.6) L 04/16/22 04:16 MCV 94 fl (84-94) 04/16/22 04:16 MCH 31 pg (28-32) 04/16/22 04:16 MCHC 33 % (32-34) 04/16/22 04:16 RDW 13.9 % (13.2-15.2) 04/16/22 04:16 Plt Count 400 K/mm3 (140-440) 04/16/22 04:16 Lymph % (Auto) 4.3 % (13.4-35.0) L 04/07/22 03:51 [place] % (Auto) 8.8 % (0.0-7.3) H 04/07/22 03:51 Eos % (Auto) 0.1 % (0.0-4.3) 04/07/22 03:51 Baso % (Auto) 0.2 % (0.0-1.8) 04/07/22 03:51 Lymph # (Auto) 0.6 K/mm3 (1.2-5.4) L 04/07/22 03:51 [place] # (Auto) 1.3 K/mm3 (0.0-0.8) H 04/07/22 03:51 Eos # (Auto) 0.0 K/mm3 (0.0-0.4) 04/07/22 03:51 Baso # (Auto) 0.0 K/mm3 (0.0-0.1) 04/07/22 03:51 Add Manual Diff Complete 04/02/22 19:39 Total Counted 100 04/02/22 19:39 Seg Neutrophils % 86.6 % (40.0-70.0) H 04/07/22 03:51 Seg Neuts % (Manual) 94.0 % (40.0-70.0) H 04/02/22 19:39 Band Neutrophils % 0 % 04/02/22 19:39 Lymphocytes % (Manual) 1.0 % (13.4-35.0) L 04/02/22 19:39 Reactive Lymphs % (Man) 0 % 04/02/22 19:39 Monocytes % (Manual) 5.0 % (0.0-7.3) 04/02/22 19:39 Eosinophils % (Manual) 0 % (0.0-4.3) 04/02/22 19:39 Basophils % (Manual) 0 % (0.0-1.8) 04/02/22 19:39 Metamyelocytes % 0 % 04/02/22 19:39 Myelocytes % 0 % 04/02/22 19:39 Promyelocytes % 0 % 04/02/22 19:39 Blast Cells % 0 % 04/02/22 19:39 Nucleated RBC % Not Reportable 04/02/22 19:39 Seg Neutrophils # 12.7 K/mm3 (1.8-7.7) H 04/07/22 03:51 Seg Neutrophils # Man 13.4 K/mm3 (1.8-7.7) H 04/02/22 19:39 Band Neutrophils # 0.0 K/mm3 04/02/22 19:39 Lymphocytes # (Manual) 0.1 K/mm3 (1.2-5.4) L 04/02/22 19:39 Abs React Lymphs (Man) 0.0 K/mm3 04/02/22 19:39 Monocytes # (Manual) 0.7 K/mm3 (0.0-0.8) 04/02/22 19:39 Eosinophils # (Manual) 0.0 K/mm3 (0.0-0.4) 04/02/22 19:39 Basophils # (Manual) 0.0 K/mm3 (0.0-0.1) 04/02/22 19:39 Metamyelocytes # 0.0 K/mm3 04/02/22 19:39 Myelocytes # 0.0 K/mm3 04/02/22 19:39 Promyelocytes # 0.0 K/mm3 04/02/22 19:39 Blast Cells # 0.0 K/mm3 04/02/22 19:39 WBC Morphology Not Reportable 04/02/22 19:39 Hypersegmented Neuts Not Reportable 04/02/22 19:39 Hyposegmented Neuts Not Reportable 04/02/22 19:39 Hypogranular Neuts Not Reportable 04/02/22 19:39 Smudge Cells Not Reportable 04/02/22 19:39 Toxic Granulation Not Reportable 04/02/22 19:39 Toxic Vacuolation Not Reportable 04/02/22 19:39 Dohle Bodies Not Reportable 04/02/22 19:39 Pelger-Huet Anomaly Not Reportable 04/02/22 19:39 Terry Rods Not Reportable 04/02/22 19:39 Platelet Estimate Consistent w auto 04/02/22 19:39 Clumped Platelets Not Reportable 04/02/22 19:39 Plt Clumps, EDTA Not Reportable 04/02/22 19:39 Large Platelets Not Reportable 04/02/22 19:39 Giant Platelets Not Reportable 04/02/22 19:39 Platelet Satelliting Not Reportable 04/02/22 19:39 Plt Morphology Comment Not Reportable 04/02/22 19:39 RBC Morphology Not Reportable 04/02/22 19:39 Dimorphic RBCs Not Reportable 04/02/22 19:39 Polychromasia Not Reportable 04/02/22 19:39 Hypochromasia Not Reportable 04/02/22 19:39 Poikilocytosis Not Reportable 04/02/22 19:39 Anisocytosis 1+ 04/02/22 19:39 Microcytosis Not Reportable 04/02/22 19:39 Macrocytosis Not Reportable 04/02/22 19:39 Spherocytes Not Reportable 04/02/22 19:39 Pappenheimer Bodies Not Reportable 04/02/22 19:39 Sickle Cells Not Reportable 04/02/22 19:39 Target Cells Not Reportable 04/02/22 19:39 Tear Drop Cells Not Reportable 04/02/22 19:39 Ovalocytes Not Reportable 04/02/22 19:39 Helmet Cells Not Reportable 04/02/22 19:39 [place] Bodies Not Reportable 04/02/22 19:39 [place] Rings Not Reportable 04/02/22 19:39 Che[place] Cells Not Reportable 04/02/22 19:39 Bite Cells Not Reportable 04/02/22 19:39 Crenated Cell Not Reportable 04/02/22 19:39 Elliptocytes Not Reportable 04/02/22 19:39 Acanthocytes (Spur) Not Reportable 04/02/22 19:39 Rouleaux Not Reportable 04/02/22 19:39 Hemoglobin C Crystals Not Reportable 04/02/22 19:39 Schistocytes Not Reportable 04/02/22 19:39 Malaria parasites Not Reportable 04/02/22 19:39 [place] Bodies Not Reportable 04/02/22 19:39 Hem Pathologist Commnt No 04/02/22 19:39 PT 13.6 Sec. (12.2-14.9) 04/13/22 04:30 INR 0.94 (0.87-1.13) 04/13/22 04:30 APTT 35.7 Sec. (24.2-36.6) 04/07/22 03:51 ABG pH 7.383 pH Units (7.350-7.450) 04/14/22 09:10 ABG pCO2 76.5 mm Hg 04/14/22 09:10 ABG pO2 66.9 mm Hg (80.0-90.0) L 04/14/22 09:10 ABG HCO3 44.5 mmol/L (20.0-26.0) H 04/14/22 09:10 ABG O2 Saturation 96.4 % (95.0-99.0) 04/14/22 09:10 ABG O2 Content 10.9 (0.0-44) 04/14/22 09:10 ABG Base Excess 17.2 mmol/L (-2.0-3.0) H 04/14/22 09:10 ABG Hemoglobin 8.1 gm/dl (14.0-18.0) L 04/14/22 09:10 ABG Carboxyhemoglobin 1.3 % (0.0-5.0) 04/14/22 09:10 ABG Methemoglobin 0.3 % (0.0-1.5) 04/14/22 09:10 Oxyhemoglobin 94.8 % (95.0-99.0) L 04/14/22 09:10 FiO2 55 % 04/14/22 09:10 Sodium 143 mmol/L (137-145) 04/16/22 04:16 Potassium 3.8 mmol/L (3.6-5.0) 04/16/22 04:16 Chloride 97.6 mmol/L (98-107) L 04/16/22 04:16 Carbon Dioxide 36 mmol/L (22-30) H 04/16/22 04:16 Anion Gap 13 mmol/L 04/16/22 04:16 BUN 14 mg/dL (9-20) 04/16/22 04:16 Creatinine < 0.2 mg/dL (0.8-1.3) L 04/16/22 04:16 Estimated GFR > 60 ml/min 04/16/22 04:16 BUN/Creatinine Ratio 70 % 04/16/22 04:16 Glucose 109 mg/dL (75-100) H 04/16/22 04:16 POC Glucose 120 mg/dL (70-105) H 04/16/22 05:00 Lactic Acid 1.90 mmol/L (0.7-2.0) 04/02/22 19:39 Calcium 8.7 mg/dL (8.4-10.2) 04/16/22 04:16 Phosphorus 3.40 mg/dL (2.5-4.5) 04/15/22 04:44 Magnesium 1.90 mg/dL (1.7-2.3) 04/15/22 04:44 Total Bilirubin 0.80 mg/dL (0.1-1.2) 04/02/22 19:39 AST 15 units/L (5-40) 04/02/22 19:39 ALT 9 units/L (7-56) 04/02/22 19:39 Alkaline Phosphatase 43 units/L (35-129) 04/02/22 19:39 Total Creatine Kinase 46 units/L (55-170) L 04/08/22 17:47 CK-MB (CK-2) 2.6 ng/mL (0.0-4.0) 04/08/22 17:47 CK-MB (CK-2) Rel Index 5.6 (0-4) H 04/08/22 17:47 Troponin T 0.031 ng/mL (0.00-0.029) H 04/08/22 17:47 C-Reactive Protein 31.60 mg/dL (0.00-1.30) H 04/04/22 04:18 Total Protein 4.6 g/dL (6.3-8.2) L 04/02/22 19:39 Albumin 2.7 g/dL (3.9-5) L 04/02/22 19:39 Albumin/Globulin Ratio 1.4 % 04/02/22 19:39 Triglycerides 80 mg/dL (2-149) 04/02/22 19:39 Cholesterol 94 mg/dL (50-199) 04/02/22 19:39 LDL Cholesterol Direct 27 mg/dL (50-130) L 04/02/22 19:39 HDL Cholesterol 47 mg/dL (40-59) 04/02/22 19:39 Cholesterol/HDL Ratio 2.00 % 04/02/22 19:39 Procalcitonin 0.08 ng/mL (<0.15) 04/04/22 04:18 Urine Color Arac[place] (Yellow) 04/05/22 17:45 Urine Turbidity Cloudy (Clear) 04/05/22 17:45 Urine pH 5.0 (5.0-7.0) 04/05/22 17:45 Ur Specific [place] 1.021 (1.003-1.030) 04/05/22 17:45 Urine Protein 30 mg/dl mg/dL (Negative) 04/05/22 17:45 Urine Glucose (UA) Neg mg/dL (Negative) 04/05/22 17:45 Urine Ketones Tr mg/dL (Negative) 04/05/22 17:45 Urine Blood Sm (Negative) 04/05/22 17:45 Urine Nitrite Neg (Negative) 04/05/22 17:45 Urine Bilirubin Neg (Negative) 04/05/22 17:45 Urine Urobilinogen < 2.0 mg/dL (<2.0) 04/05/22 17:45 Ur Leukocyte Esterase Tr (Negative) 04/05/22 17:45 Urine WBC (Auto) 8.0 /HPF (0.0-6.0) H 04/05/22 17:45 Urine RBC (Auto) 3.0 /HPF (0.0-6.0) 04/05/22 17:45 U Epithel Cells (Auto) 2.0 /HPF (0-13.0) 04/05/22 17:45 Urine Bacteria (Auto) 1+ /HPF (Negative) 04/02/22 Unknown Hyaline Casts 1 /LPF 04/05/22 17:45 Urine Mucus 3+ /HPF 04/05/22 17:45 Nasal Screen MRSA (PCR) Negative (Negative) 04/05/22 12:37 Vancomycin Trough 6.0 ug/mL (5.0-20.0) 04/05/22 18:53 Coronavirus (PCR) Negative (Negative) 04/07/22 14:52 Perez/IV: Voiding Method Condom Catheter Active Medications - Current Medications Current Medications: Generic Name Dose Route Start Last Admin Trade Name Freq PRN Reason Stop Dose Admin Acetaminophen 650 mg 04/02/22 23:53 04/11/22 17:31 Acetaminophen 325 Mg Tab PO 650 mg Q6H PRN Administration Pain MILD(1-3)/Fever >100.5/FAITH Acetylcysteine 200 mg 04/15/22 10:00 04/16/22 08:03 Acetylcysteine 10% 100 Mg/1 Ml *For Inhalation Use* INHALATION 200 mg Q8HRT SEGUNDO Administration Albuterol 2.5 mg 04/06/22 16:00 04/16/22 07:37 Albuterol 2.5 Mg/3 Ml Nebu IH 2.5 mg Q8HRT SEGUNDO Administration Bisacodyl 10 mg 04/07/22 09:44 04/12/22 10:06 Bisacodyl [address] 10 mg QDAY PRN Administration Constipation Dextrose 50 ml 04/06/22 17:54 Dextrose 50% In Water (25gm) 50 Ml Syringe IV Q30MIN PRN Hypoglycemia Protocol Docusate Sodium 100 mg 04/03/22 15:00 04/16/22 09:18 Docusate Sodium 100 Mg/10 Ml Oral Liqd PO 100 mg BID SEGUNDO Administration Famotidine 20 mg 04/06/22 10:00 04/16/22 09:18 Famotidine 20 Mg Tab FEEDTUBE 20 mg BID SEGUNDO Administration Fentanyl 50 mcg 04/04/22 15:56 04/15/22 01:44 Fentanyl 100 Mcg/2 Ml Inj IV 50 mcg Q2HR PRN Administration For CPOT of greater than 3 Fentanyl 100 mcg 04/15/22 18:00 04/15/22 17:12 Fentanyl 100 Mcg/2 Ml Inj IV 100 mcg ONCE SEGUNDO Administration Heparin Sodium (Porcine) 5,000 unit 04/03/22 06:00 04/16/22 06:22 Heparin 5,000 Unit/1 Ml Vial SUB-Q 5,000 unit Q8HR SEGUNDO Administration Dexmedetomidine HCl 400 mcg/ 104 mls @ 2.434 mls/hr 04/03/22 07:00 04/14/22 14:55 Sodium Chloride IV 0 mcg/kg/hr TITRATE SEGUNDO 0 mls/hr Titration Protocol 0.2 MCG/KG/HR Cefepime HCl 1 gm in 100 mls @ 200 mls/hr 04/15/22 21:00 04/16/22 06:18 Cefepime/Ns 1 Gm/100 Ml IV 04/19/22 20:59 200 mls/hr Q8H SEGUNDO Administration Protocol Sodium Chloride 250 mls @ 999 mls/hr 04/15/22 17:50 Nacl 0.9% 250ml IV ONCE SEGUNDO Insulin Human Regular 0 units 04/06/22 18:00 04/16/22 02:34 Insulin Regular, Human 100 Units/1 Ml SUB-Q Not Given Q6H [facility] Protocol Magnesium Hydroxide 30 ml 04/02/22 23:53 Magnesium Hydroxide (Mom) Oral Liqd Udc PO Q4H PRN Constipation Metoprolol Tartrate 12.5 mg 04/11/22 08:55 04/16/22 06:21 Metoprolol Tartrate 25 Mg Tab FEEDTUBE 12.5 mg Q6HR SEGUNDO Administration Midazolam HCl 4 mg 04/15/22 18:00 04/15/22 17:15 Midazolam 5 Mg/5 Ml Inj Mdv IV 4 mg ONCE SEGUNDO Administration Ondansetron HCl 4 mg 04/02/22 23:53 Ondansetron 4 Mg/2 Ml Inj IV Q8H PRN Nausea And Vomiting Polyethylene Glycol 17 gm 04/08/22 10:00 04/16/22 09:18 Polyethylene Glycol 3350 17 Gm Powder PO 17 gm QDAY SEGUNDO Administration Quetiapine Fumarate 100 mg 04/12/22 14:00 04/16/22 06:20 Quetiapine 25 Mg Tab PO 100 mg 0600,1600 SEGUNDO Administration Quetiapine Fumarate 50 mg 04/12/22 14:01 04/16/22 02:34 Quetiapine 25 Mg Tab PO 50 mg QHS SEGUNDO Administration Senna 17.6 mg 04/03/22 22:00 04/16/22 09:18 Sennosides Oral Liqd 8.8 Mg/5 Ml Oral Liqd PO 17.6 mg Q12HR SEGUNDO Administration Sodium Chloride 10 ml 04/03/22 10:00 04/16/22 09:19 Sodium Chloride 0.9% 10 Ml Flush Syringe IV 10 ml BID SEGUNDO Administration Sodium Chloride 10 ml 04/02/22 23:53 Sodium Chloride 0.9% 10 Ml Flush Syringe IV PRN PRN LINE FLUSH Nutrition/Malnutrition Assess - Dietary Evaluation Nutrition/Malnutrition Findings: Nutrition Notes Start: 04/04/22 13:13 Freq: Status: Active Protocol: Document 04/13/22 12:41 COLLEEN (Rec: 04/13/22 13:09 COLLEEN [email or web address]) Nutrition Notes Initial or Follow up Reassessment Current Diagnosis Coronary Artery Disease, Respiratory Failure, Malnutrition Other Pertinent Diagnosis HCAP, HFpEF, ALS, Pleural Effusion, R-Lung Collapse, Hypotension, ... Current Diet NPO (since 04/13 00:01). Labs/Tests 04/13: Cl 93.9, CO2 39, Crea < 0.2, Phos 1.9. Pertinent Medications 04/13: Nutritionally unremarkable. Height 5 ft 4.8 in Weight 46.8 kg Jackson Body Weight (kg) 61.27 BMI 17.2 Weight change and time frame No body weight change reported in 9 days. Weight Status Underweight Subjective/Other Information RD consult for routine F/U on TF tolerance/continuation. Pt currently on NPO. Pt is on Mechanical ventilation, O2 saturation @ 96%, according to Physical Assessment Histroy notes. Pt is awake and tracking, but unable to follow simple commands, according to Progress notes. Procedure planned for 04/13: Trach/PEG, but with moderate to high risk of associated cardiac event, according to Progress notes. Pt to be placed on LTAC facility after procedure. Percent of energy/protein needs met: Pt currently on NPO. Prescribed TF-Vital AF 1.2 Inderjit @ 50 ml/hr provides for energy/protein needs (1,450 Kcal/91 g) during LOS, 98% Kcal; 100% AA. Burn Absent Trauma Absent GI Symptoms Constipation Difficulty In Swallowing,Chewing Food Allergy No Skin Integrity/Comment Sacral skin tear. Current % PO Other Minimum of two criteria No #1 Nutrition Diagnosis Inadequate oral intake Comments: Procedure planned for 04/13: Trach/PEG, but with moderate to high risk of associated cardiac event, according to Progress notes. Diagnosis Progress(for reassessment Continues documentation) Is patient on ventilator? Yes Is Patient Ambulatory and/or Out of Bed No REE-([place] Jeor-confined to bed) [phone] [facility]culation [facility] Additional Notes Protein: 1.2-2 g/Kg IBW; 73- 122 g/day. Fluids: 1 ml/Kcal, or as per MD. Nutrition Intervention Nutrition Support: When pertinent, resume TF- Vital AF 1.2 Inderjit @ 50 ml/hr. Flush: 80 ml water Q 4 hr, or as per MD. Kcal 1,450 Protein (gm) 91 Carbohydrates (gm) 134 Fat (gm) 65 Fluid (mL) 980 Fiber (gm) 6 % RDI: 98% Kcal; 100% AA. Goal #1 Provide at least 75% of energy /protein needs through Enteral Feeding during LOS. Goal #2 Maintain body weight within +/ -3% of admission body weight during LOS. Follow-Up By: 04/20/22 Additional Comments When pertinent, continue monitoring TF tolerance and BM . <DIXIE BROWN - Last Filed: 04/17/22 07:16> Assessment and Plan Assessment and plan: I saw and evaluated the patient. I agree with the findings and the plan of care as documented in the Nurse Practitioner's~note, with the following corrections and additions. Hospitalist Physical - Constitutional Vitals: Temp Pulse Resp BP Pulse Ox 99.4 F 99 H 15 119/73 96 04/17/22 03:34 04/17/22 06:00 04/17/22 06:00 04/17/22 06:00 04/17/22 06:00 HEART Score - HEART Score Troponin: Troponin T 0.031 ng/mL (0.00-0.029) H 04/08/22 17:47 Results - Labs CBC & Chem 7: 04/17/22 04:36 04/17/22 04:36 Labs: Laboratory Last Values WBC 14.4 K/mm3 (4.5-11.0) H 04/17/22 04:36 RBC 3.08 M/mm3 (3.65-5.03) L 04/17/22 04:36 Hgb 9.4 gm/dl (11.8-15.2) L 04/17/22 04:36 Hct 29.0 % (35.5-45.6) L 04/17/22 04:36 MCV 94 fl (84-94) 04/17/22 04:36 MCH 31 pg (28-32) 04/17/22 04:36 MCHC 32 % (32-34) 04/17/22 04:36 RDW 13.7 % (13.2-15.2) 04/17/22 04:36 Plt Count 337 K/mm3 (140-440) 04/17/22 04:36 Lymph % (Auto) 4.3 % (13.4-35.0) L 04/07/22 03:51 [place] % (Auto) 8.8 % (0.0-7.3) H 04/07/22 03:51 Eos % (Auto) 0.1 % (0.0-4.3) 04/07/22 03:51 Baso % (Auto) 0.2 % (0.0-1.8) 04/07/22 03:51 Lymph # (Auto) 0.6 K/mm3 (1.2-5.4) L 04/07/22 03:51 [place] # (Auto) 1.3 K/mm3 (0.0-0.8) H 04/07/22 03:51 Eos # (Auto) 0.0 K/mm3 (0.0-0.4) 04/07/22 03:51 Baso # (Auto) 0.0 K/mm3 (0.0-0.1) 04/07/22 03:51 Add Manual Diff Complete 04/02/22 19:39 Total Counted 100 04/02/22 19:39 Seg Neutrophils % 86.6 % (40.0-70.0) H 04/07/22 03:51 Seg Neuts % (Manual) 94.0 % (40.0-70.0) H 04/02/22 19:39 Band Neutrophils % 0 % 04/02/22 19:39 Lymphocytes % (Manual) 1.0 % (13.4-35.0) L 04/02/22 19:39 Reactive Lymphs % (Man) 0 % 04/02/22 19:39 Monocytes % (Manual) 5.0 % (0.0-7.3) 04/02/22 19:39 Eosinophils % (Manual) 0 % (0.0-4.3) 04/02/22 19:39 Basophils % (Manual) 0 % (0.0-1.8) 04/02/22 19:39 Metamyelocytes % 0 % 04/02/22 19:39 Myelocytes % 0 % 04/02/22 19:39 Promyelocytes % 0 % 04/02/22 19:39 Blast Cells % 0 % 04/02/22 19:39 Nucleated RBC % Not Reportable 04/02/22 19:39 Seg Neutrophils # 12.7 K/mm3 (1.8-7.7) H 04/07/22 03:51 Seg Neutrophils # Man 13.4 K/mm3 (1.8-7.7) H 04/02/22 19:39 Band Neutrophils # 0.0 K/mm3 04/02/22 19:39 Lymphocytes # (Manual) 0.1 K/mm3 (1.2-5.4) L 04/02/22 19:39 Abs React Lymphs (Man) 0.0 K/mm3 04/02/22 19:39 Monocytes # (Manual) 0.7 K/mm3 (0.0-0.8) 04/02/22 19:39 Eosinophils # (Manual) 0.0 K/mm3 (0.0-0.4) 04/02/22 19:39 Basophils # (Manual) 0.0 K/mm3 (0.0-0.1) 04/02/22 19:39 Metamyelocytes # 0.0 K/mm3 04/02/22 19:39 Myelocytes # 0.0 K/mm3 04/02/22 19:39 Promyelocytes # 0.0 K/mm3 04/02/22 19:39 Blast Cells # 0.0 K/mm3 04/02/22 19:39 WBC Morphology Not Reportable 04/02/22 19:39 Hypersegmented Neuts Not Reportable 04/02/22 19:39 Hyposegmented Neuts Not Reportable 04/02/22 19:39 Hypogranular Neuts Not Reportable 04/02/22 19:39 Smudge Cells Not Reportable 04/02/22 19:39 Toxic Granulation Not Reportable 04/02/22 19:39 Toxic Vacuolation Not Reportable 04/02/22 19:39 Dohle Bodies Not Reportable 04/02/22 19:39 Pelger-Huet Anomaly Not Reportable 04/02/22 19:39 Terry Rods Not Reportable 04/02/22 19:39 Platelet Estimate Consistent w auto 04/02/22 19:39 Clumped Platelets Not Reportable 04/02/22 19:39 Plt Clumps, EDTA Not Reportable 04/02/22 19:39 Large Platelets Not Reportable 04/02/22 19:39 Giant Platelets Not Reportable 04/02/22 19:39 Platelet Satelliting Not Reportable 04/02/22 19:39 Plt Morphology Comment Not Reportable 04/02/22 19:39 RBC Morphology Not Reportable 04/02/22 19:39 Dimorphic RBCs Not Reportable 04/02/22 19:39 Polychromasia Not Reportable 04/02/22 19:39 Hypochromasia Not Reportable 04/02/22 19:39 Poikilocytosis Not Reportable 04/02/22 19:39 Anisocytosis 1+ 04/02/22 19:39 Microcytosis Not Reportable 04/02/22 19:39 Macrocytosis Not Reportable 04/02/22 19:39 Spherocytes Not Reportable 04/02/22 19:39 Pappenheimer Bodies Not Reportable 04/02/22 19:39 Sickle Cells Not Reportable 04/02/22 19:39 Target Cells Not Reportable 04/02/22 19:39 Tear Drop Cells Not Reportable 04/02/22 19:39 Ovalocytes Not Reportable 04/02/22 19:39 Helmet Cells Not Reportable 04/02/22 19:39 [place] Bodies Not Reportable 04/02/22 19:39 [place] Rings Not Reportable 04/02/22 19:39 Cheikh Cells Not Reportable 04/02/22 19:39 Bite Cells Not Reportable 04/02/22 19:39 Crenated Cell Not Reportable 04/02/22 19:39 Elliptocytes Not Reportable 04/02/22 19:39 Acanthocytes (Spur) Not Reportable 04/02/22 19:39 Rouleaux Not Reportable 04/02/22 19:39 Hemoglobin C Crystals Not Reportable 04/02/22 19:39 Schistocytes Not Reportable 04/02/22 19:39 Malaria parasites Not Reportable 04/02/22 19:39 [place] Bodies Not Reportable 04/02/22 19:39 Hem Pathologist Commnt No 04/02/22 19:39 PT 13.6 Sec. (12.2-14.9) 04/13/22 04:30 INR 0.94 (0.87-1.13) 04/13/22 04:30 APTT 35.7 Sec. (24.2-36.6) 04/07/22 03:51 ABG pH 7.324 pH Units (7.350-7.450) L 04/16/22 14:00 ABG pCO2 89.1 mm Hg 04/16/22 14:00 ABG pO2 55.6 mm Hg (80.0-90.0) L 04/16/22 14:00 ABG HCO3 45.3 mmol/L (20.0-26.0) H 04/16/22 14:00 ABG O2 Saturation 87.1 % (95.0-99.0) L 04/16/22 14:00 ABG O2 Content 10.5 (0.0-44) 04/16/22 14:00 ABG Base Excess 16.6 mmol/L (-2.0-3.0) H 04/16/22 14:00 ABG Hemoglobin 8.6 gm/dl (14.0-18.0) L 04/16/22 14:00 ABG Carboxyhemoglobin 1.1 % (0.0-5.0) 04/16/22 14:00 ABG Methemoglobin 0.4 % (0.0-1.5) 04/16/22 14:00 Oxyhemoglobin 85.7 % (95.0-99.0) L 04/16/22 14:00 FiO2 60 % 04/16/22 14:00 Sodium 144 mmol/L (137-145) 04/17/22 04:36 Potassium 3.9 mmol/L (3.6-5.0) 04/17/22 04:36 Chloride 95.9 mmol/L (98-107) L 04/17/22 04:36 Carbon Dioxide 39 mmol/L (22-30) H 04/17/22 04:36 Anion Gap 13 mmol/L 04/17/22 04:36 BUN 15 mg/dL (9-20) 04/17/22 04:36 Creatinine < 0.2 mg/dL (0.8-1.3) L 04/17/22 04:36 Estimated GFR > 60 ml/min 04/17/22 04:36 BUN/Creatinine Ratio 75 % 04/17/22 04:36 Glucose 140 mg/dL (75-100) H 04/17/22 04:36 POC Glucose 120 mg/dL (70-105) H 04/16/22 05:00 Lactic Acid 1.90 mmol/L (0.7-2.0) 04/02/22 19:39 Calcium 8.3 mg/dL (8.4-10.2) L 04/17/22 04:36 Phosphorus 2.50 mg/dL (2.5-4.5) 04/17/22 04:36 Magnesium 2.10 mg/dL (1.7-2.3) 04/17/22 04:36 Total Bilirubin 0.80 mg/dL (0.1-1.2) 04/02/22 19:39 AST 15 units/L (5-40) 04/02/22 19:39 ALT 9 units/L (7-56) 04/02/22 19:39 Alkaline Phosphatase 43 units/L (35-129) 04/02/22 19:39 Total Creatine Kinase 46 units/L (55-170) L 04/08/22 17:47 CK-MB (CK-2) 2.6 ng/mL (0.0-4.0) 04/08/22 17:47 CK-MB (CK-2) Rel Index 5.6 (0-4) H 04/08/22 17:47 Troponin T 0.031 ng/mL (0.00-0.029) H 04/08/22 17:47 C-Reactive Protein 31.60 mg/dL (0.00-1.30) H 04/04/22 04:18 Total Protein 4.6 g/dL (6.3-8.2) L 04/02/22 19:39 Albumin 2.7 g/dL (3.9-5) L 04/02/22 19:39 Albumin/Globulin Ratio 1.4 % 04/02/22 19:39 Triglycerides 80 mg/dL (2-149) 04/02/22 19:39 Cholesterol 94 mg/dL (50-199) 04/02/22 19:39 LDL Cholesterol Direct 27 mg/dL (50-130) L 04/02/22 19:39 HDL Cholesterol 47 mg/dL (40-59) 04/02/22 19:39 Cholesterol/HDL Ratio 2.00 % 04/02/22 19:39 Procalcitonin 0.08 ng/mL (<0.15) 04/04/22 04:18 Urine Color [place] (Yellow) 04/05/22 17:45 Urine Turbidity Cloudy (Clear) 04/05/22 17:45 Urine pH 5.0 (5.0-7.0) 04/05/22 17:45 Ur Specific [place] 1.021 (1.003-1.030) 04/05/22 17:45 Urine Protein 30 mg/dl mg/dL (Negative) 04/05/22 17:45 Urine Glucose (UA) Neg mg/dL (Negative) 04/05/22 17:45 Urine Ketones Tr mg/dL (Negative) 04/05/22 17:45 Urine Blood Sm (Negative) 04/05/22 17:45 Urine Nitrite Neg (Negative) 04/05/22 17:45 Urine Bilirubin Neg (Negative) 04/05/22 17:45 Urine Urobilinogen < 2.0 mg/dL (<2.0) 04/05/22 17:45 Ur Leukocyte Esterase Tr (Negative) 04/05/22 17:45 Urine WBC (Auto) 8.0 /HPF (0.0-6.0) H 04/05/22 17:45 Urine RBC (Auto) 3.0 /HPF (0.0-6.0) 04/05/22 17:45 U Epithel Cells (Auto) 2.0 /HPF (0-13.0) 04/05/22 17:45 Urine Bacteria (Auto) 1+ /HPF (Negative) 04/02/22 Unknown Hyaline Casts 1 /LPF 04/05/22 17:45 Urine Mucus 3+ /HPF 04/05/22 17:45 Nasal Screen MRSA (PCR) Negative (Negative) 04/05/22 12:37 Vancomycin Trough 6.0 ug/mL (5.0-20.0) 04/05/22 18:53 Coronavirus (PCR) Negative (Negative) 04/07/22 14:52 Microbiology: Microbiology 04/15/22 17:57 Bronchial Washings - Right Middle Lobe Respiratory Culture - Preliminary Perez/IV: Voiding Method Condom Catheter Active Medications - Current Medications Current Medications: Generic Name Dose Route Start Last Admin Trade Name Freq PRN Reason Stop Dose Admin Acetaminophen 650 mg 04/02/22 23:53 04/16/22 12:16 Acetaminophen 325 Mg Tab PO 650 mg Q6H PRN Administration Pain MILD(1-3)/Fever >100.5/FAITH Acetylcysteine 200 mg 04/15/22 10:00 04/17/22 00:30 Acetylcysteine 10% 100 Mg/1 Ml *For Inhalation Use* INHALATION 200 mg Q8HRT SEGUNDO Administration Albuterol 2.5 mg 04/06/22 16:00 04/16/22 23:47 Albuterol 2.5 Mg/3 Ml Nebu IH 2.5 mg Q8HRT SEGUNDO Administration Bisacodyl 10 mg 04/07/22 09:44 04/12/22 10:06 Bisacodyl [address] 10 mg QDAY PRN Administration Constipation Dextrose 50 ml 04/06/22 17:54 Dextrose 50% In Water (25gm) 50 Ml Syringe IV Q30MIN PRN Hypoglycemia Protocol Docusate Sodium 100 mg 04/03/22 15:00 04/16/22 21:24 Docusate Sodium 100 Mg/10 Ml Oral Liqd PO 100 mg BID SEGUNDO Administration Famotidine 20 mg 04/06/22 10:00 04/16/22 21:23 Famotidine 20 Mg Tab FEEDTUBE 20 mg BID SEGUNDO Administration Fentanyl 50 mcg 04/04/22 15:56 04/16/22 13:31 Fentanyl 100 Mcg/2 Ml Inj IV 50 mcg Q2HR PRN Administration For CPOT of greater than 3 Fentanyl 100 mcg 04/15/22 18:00 04/15/22 17:12 Fentanyl 100 Mcg/2 Ml Inj IV 100 mcg ONCE SEGUNDO Administration Heparin Sodium (Porcine) 5,000 unit 04/03/22 06:00 04/17/22 05:23 Heparin 5,000 Unit/1 Ml Vial SUB-Q 5,000 unit Q8HR SEGUNDO Administration Dexmedetomidine HCl 400 mcg/ 104 mls @ 2.434 mls/hr 04/03/22 07:00 04/14/22 14:55 Sodium Chloride IV 0 mcg/kg/hr TITRATE SEGUNDO 0 mls/hr Titration Protocol 0.2 MCG/KG/HR Cefepime HCl 1 gm in 100 mls @ 200 mls/hr 04/15/22 21:00 04/17/22 06:19 Cefepime/Ns 1 Gm/100 Ml IV 04/19/22 20:59 200 mls/hr Q8H SEGUNDO Administration Protocol Sodium Chloride 250 mls @ 999 mls/hr 04/15/22 17:50 Nacl 0.9% 250ml IV ONCE SEGUNDO Insulin Human Regular 0 units 04/06/22 18:00 04/17/22 05:16 Insulin Regular, Human 100 Units/1 Ml SUB-Q Not Given Q6H [facility] Protocol Magnesium Hydroxide 30 ml 04/02/22 23:53 Magnesium Hydroxide (Mom) Oral Liqd Udc PO Q4H PRN Constipation Metoprolol Tartrate 25 mg 04/16/22 18:00 04/17/22 05:23 Metoprolol Tartrate 25 Mg Tab FEEDTUBE 25 mg Q6HR SEGUNDO Administration Midazolam HCl 4 mg 04/15/22 18:00 04/15/22 17:15 Midazolam 5 Mg/5 Ml Inj Mdv IV 4 mg ONCE SEGUNDO Administration Ondansetron HCl 4 mg 04/02/22 23:53 Ondansetron 4 Mg/2 Ml Inj IV Q8H PRN Nausea And Vomiting Polyethylene Glycol 17 gm 04/08/22 10:00 04/16/22 09:18 Polyethylene Glycol 3350 17 Gm Powder PO 17 gm QDAY SEGUNDO Administration Quetiapine Fumarate 100 mg 04/12/22 14:00 04/17/22 05:22 Quetiapine 25 Mg Tab PO 100 mg 0600,1600 SEGUNDO Administration Quetiapine Fumarate 50 mg 04/12/22 14:01 04/16/22 21:25 Quetiapine 25 Mg Tab PO 50 mg QHS SEGUNDO Administration Senna 17.6 mg 04/03/22 22:00 04/16/22 21:22 Sennosides Oral Liqd 8.8 Mg/5 Ml Oral Liqd PO 17.6 mg Q12HR SEGUNDO Administration Sodium Chloride 10 ml 04/03/22 10:00 04/16/22 21:24 Sodium Chloride 0.9% 10 Ml Flush Syringe IV 10 ml BID SEGUNDO Administration Sodium Chloride 10 ml 04/02/22 23:53 Sodium Chloride 0.9% 10 Ml Flush Syringe IV PRN PRN LINE FLUSH Nutrition/Malnutrition Assess - Dietary Evaluation Nutrition/Malnutrition Findings: Nutrition Notes Start: 04/04/22 13:13 Freq: Status: Active Protocol: Document 04/13/22 12:41 COLLEEN (Rec: 04/13/22 13:09 COLLEEN [id number]) Nutrition Notes Initial or Follow up Reassessment Current Diagnosis Coronary Artery Disease, Respiratory Failure, Malnutrition Other Pertinent Diagnosis HCAP, HFpEF, ALS, Pleural Effusion, R-Lung Collapse, Hypotension, ... Current Diet NPO (since 04/13 00:01). Labs/Tests 04/13: Cl 93.9, CO2 39, Crea < 0.2, Phos 1.9. Pertinent Medications 04/13: Nutritionally unremarkable. Height 5 ft 4.8 in Weight 46.8 kg [place] Body Weight (kg) 61.27 BMI 17.2 Weight change and time frame No body weight change reported in 9 days. Weight Status Underweight Subjective/Other Information RD consult for routine F/U on TF tolerance/continuation. Pt currently on NPO. Pt is on Mechanical ventilation, O2 saturation @ 96%, according to Physical Assessment Histroy notes. Pt is awake and tracking, but unable to follow simple commands, according to Progress notes. Procedure planned for 04/13: Trach/PEG, but with moderate to high risk of associated cardiac event, according to Progress notes. Pt to be placed on LTAC facility after procedure. Percent of energy/protein needs met: Pt currently on NPO. Prescribed TF-Vital AF 1.2 Inderjit @ 50 ml/hr provides for energy/protein needs (1,450 Kcal/91 g) during LOS, 98% Kcal; 100% AA. Burn Absent Trauma Absent GI Symptoms Constipation Difficulty In Swallowing,Chewing Food Allergy No Skin Integrity/Comment Sacral skin tear. Current % PO Other Minimum of two criteria No #1 Nutrition Diagnosis Inadequate oral intake Comments: Procedure planned for 04/13: Trach/PEG, but with moderate to high risk of associated cardiac event, according to Progress notes. Diagnosis Progress(for reassessment Continues documentation) Is patient on ventilator? Yes Is Patient Ambulatory and/or Out of Bed No [facility] [phone] Calculation Used for Recommendations [facility][1] Additional Notes Protein: 1.2-2 g/Kg IBW; 73- 122 g/day. Fluids: 1 ml/Kcal, or as per MD. Nutrition Intervention Nutrition Support: When pertinent, resume TF- Vital AF 1.2 Inderjit @ 50 ml/hr. Flush: 80 ml water Q 4 hr, or as per MD. Kcal 1,450 Protein (gm) 91 Carbohydrates (gm) 134 Fat (gm) 65 Fluid (mL) 980 Fiber (gm) 6 % RDI: 98% Kcal; 100% AA. Goal #1 Provide at least 75% of energy /protein needs through Enteral Feeding during LOS. Goal #2 Maintain body weight within +/ -3% of admission body weight during LOS. Follow-Up By: 04/20/22 Additional Comments When pertinent, continue monitoring TF tolerance and BM .
[2022-04-16] MEDS: ACETAMINOPHEN 325 MG TAB PO PRN (12:16)
--- NOTE | 2022-04-16 13:15 | Progress Note ---
Assessment and Plan - Patient Problems (1) Respiratory failure Current Visit: Yes Status: Acute Plan to address problem: Patient presented with acute respiratory failure, with chest x-ray showing total whiteout of the right lung, due to acute pneumonia, large right pleural effusion and collapse of the right lung. Continue supportive management, antibiotics. (2) Acute coronary syndrome Current Visit: Yes Status: Acute Plan to address problem: The patient's interval ECGs while in the ICU showed dynamic changes of anterior wall ischemia or infarction. Patient has severe comorbidities including progressive total paralysis of ALS, and intercurrent respiratory failure with large right pleural effusion and total collapse of the right lung. Currently assessed as a poor candidate for aggressive cardiac management due to the multiple severe acute and chronic comorbidities. He has been placed on conservative, empiric coronary artery disease medical therapy. A trach PEG procedure has been completed, discharge planning for [facility] facility placement is in progress. Subjective Date of service: 04/16/22 Principal diagnosis: Ac and ch hypercapnic and hypoxemic Resp Failure; ALS; HCAP; Sepsis; NSTEMI Interval history: Patient has eyes open, on the vent via a trach. On puttying and calking supervisor, there is a sinus tachycardia. Hemodynamics are stable. Objective Vital Signs Temp Pulse Pulse Pulse Pulse Pulse Pulse 04/16/22 13:00 111 H 04/16/22 12:07 124 H 04/16/22 12:00 100 F H 121 H 121 H 04/16/22 11:00 121 H 04/16/22 10:00 126 H 04/16/22 09:00 126 H 04/16/22 08:00 99 F 116 H 91 H 116 H 110 H 112 H 110 H 04/16/22 07:00 116 H 04/16/22 06:21 111 H 04/16/22 06:00 106 H 04/16/22 05:00 105 H 04/16/22 04:00 98.8 F 110 H 106 H 04/16/22 03:00 106 H 04/16/22 02:33 106 H 04/16/22 02:00 105 H 04/16/22 01:00 101 H 04/16/22 00:00 104 H 104 H 98 H 04/15/22 23:30 98.5 F 04/15/22 23:00 119 H 04/15/22 22:00 103 H 04/15/22 21:00 108 H 04/15/22 20:07 115 H 04/15/22 20:00 108 H 103 H 04/15/22 19:49 98.7 F 04/15/22 19:45 112 H 04/15/22 19:30 115 H 04/15/22 19:15 115 H 04/15/22 19:00 120 H 04/15/22 18:45 123 H 04/15/22 18:37 04/15/22 18:30 123 H 04/15/22 18:15 116 H 04/15/22 18:01 128 H 04/15/22 17:45 125 H 04/15/22 17:30 139 H 04/15/22 17:15 154 H 04/15/22 17:00 127 H 04/15/22 16:45 128 H 04/15/22 16:35 04/15/22 16:31 122 H 04/15/22 16:15 119 H 121 H 04/15/22 16:00 83 83 04/15/22 15:45 88 04/15/22 15:42 98.3 F 04/15/22 15:31 82 04/15/22 15:15 99 H 04/15/22 15:00 102 H 04/15/22 14:45 104 H 04/15/22 14:31 106 H 04/15/22 14:15 96 H 04/15/22 14:00 110 H 04/15/22 13:45 117 H 04/15/22 13:31 105 H 04/15/22 13:15 102 H Pulse Resp Resp BP Pulse Ox Pulse Ox 04/16/22 13:00 15 129/77 84 04/16/22 12:07 139/77 04/16/22 12:00 15 139/77 90 04/16/22 11:00 14 133/75 92 04/16/22 10:00 14 129/72 91 04/16/22 09:00 15 119/62 04/16/22 08:00 112 H 14 22 114/65 92 04/16/22 07:00 16 122/73 90 04/16/22 06:21 123/73 04/16/22 06:00 15 112/69 04/16/22 05:00 14 118/73 95 04/16/22 04:00 14 117/71 94 04/16/22 03:00 14 124/82 96 06/10/22 02:33 133/71 04/16/22 02:00 15 116/67 95 04/16/22 01:00 14 107/60 04/16/22 00:00 15 16 115/65 94 93 04/15/22 23:30 04/15/22 23:00 16 117/63 04/15/22 22:00 14 101/57 04/15/22 21:00 14 104/58 99 04/15/22 20:07 14 99/53 100 04/15/22 20:00 15 100/57 94 04/15/22 19:49 04/15/22 19:45 14 100/56 04/15/22 19:30 14 107/58 04/15/22 19:15 14 102/57 04/15/22 19:00 14 101/60 100 04/15/22 18:45 14 113/62 100 04/15/22 18:37 93 04/15/22 18:30 14 112/58 04/15/22 18:15 14 99/58 100 04/15/22 18:01 16 111/67 99 04/15/22 17:45 11 L 90/56 98 04/15/22 17:30 15 116/62 94 04/15/22 17:15 18 99/64 93 04/15/22 17:00 17 116/62 93 04/15/22 16:45 16 129/76 97 04/15/22 16:35 93 04/15/22 16:31 14 129/76 94 04/15/22 16:15 16 16 129/76 92 04/15/22 16:00 16 129/76 94 04/15/22 15:45 17 135/79 98 04/15/22 15:42 04/15/22 15:31 15 135/79 98 04/15/22 15:15 14 135/79 98 04/15/22 15:00 18 135/79 98 04/15/22 14:45 16 136/76 98 04/15/22 14:31 15 136/76 98 04/15/22 14:15 16 136/76 98 04/15/22 14:00 14 136/76 98 04/15/22 13:45 17 124/79 99 04/15/22 13:31 16 124/79 99 04/15/22 13:15 15 98 - Physical Examination General: Other (Awake, on the vent via a tracheostomy) HEENT: Positive: PERRL, Normocephaly, Other (ET-tube in place) Neck: Positive: neck supple, trachea midline (intubated). Negative: JVD/HJR Cardiac: Positive: Regular Rhythm Lungs: Positive: Decreased Breath Sounds Neuro: Positive: Other (Awake, on the vent via tracheostomy) Abdomen: Positive: Soft Skin: Positive: Clear Extremities: Present: Other (TR.EDEMA). Absent: edema (NO) - Labs and Meds CBC 04/16/22 Range/Units 04:16 WBC 12.6 H (4.5-11.0) K/mm3 RBC 3.09 L (3.65-5.03) M/mm3 Hgb 9.5 L (11.8-15.2) gm/dl Hct 29.1 L (35.5-45.6) % Plt Count 400 (140-440) K/mm3 Comprehensive Metabolic Panel 04/16/22 Range/Units 04:16 Sodium 143 (137-145) mmol/L Potassium 3.8 (3.6-5.0) mmol/L Chloride 97.6 L (98-107) mmol/L Carbon Dioxide 36 H (22-30) mmol/L BUN 14 (9-20) mg/dL Creatinine < 0.2 L (0.8-1.3) mg/dL Glucose 109 H (75-100) mg/dL Calcium 8.7 (8.4-10.2) mg/dL - Allied health notes Allied health notes reviewed: nursing
[2022-04-16] MEDS: fentaNYL 100 MCG/2 ML INJ IV PRN (13:31)
[2022-04-16 14:23] LABS: ABG Base Excess 16.6 mmol/L (-2.0-3.0); ABG HCO3 45.3 mmol/L (20.0-26.0); ABG Methemoglobin 0.4 % (0.0-1.5); ABG Oxygen Saturation 87.1 % (95.0-99.0); ABG PCO2 89.1 mm Hg; ABG PH 7.324 pH Units (7.350-7.450); ABG PO2 55.6 mm Hg (80.0-90.0)
--- NOTE | 2022-04-16 14:23 | XRay Report ---
CHEST 1 VIEW 04/16/2022 2:03 PM INDICATION / CLINICAL INFORMATION: Desaturation. COMPARISON: Earlier today at 0050 hours FINDINGS: SUPPORT DEVICES: Tracheostomy remains in good position HEART / MEDIASTINUM: No significant abnormality. LUNGS / PLEURA: Atelectatic changes at the right lung base have decreased significantly. There are pa tchy bibasilar peribronchial infiltrates concerning for pneumonia or aspiration. Trace right pleural effusion is present. No pneumothorax. ADDITIONAL FINDINGS: No significant additional findings. IMPRESSION: 1. Bibasilar lung opacities concerning for pneumonia or aspiration. 2. Improvement in right lower lobe atelectatic changes. 3. Trace right pleural effusion. Signer Name: Cuauhtemoc Mcintyre Jr, MD Signed: 04/16/2022 2:18 PM Workstation Name: [id number]
--- NOTE | 2022-04-16 14:36 | Progress Note ---
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 could be progression of disease. Treat agitation and pain. Monitor respiratory status closely ABG, CXR in am -Titrate supplemental oxygen to keep SpO2 89-92% -VAP bundle addressed, aspiration precautions HOB >40 -Lung protective strategies -Daily assessment for readiness to wean. -Monitoring renal function, hemodynamics and electrolyte profile -Replete electrolytes as clinically indicated -Accuchecks with glycemic control. target blood glucose 140-180 mg/dL. Avoid hypoglycemia -Continue enteric nutritional support, bowel regimen -VTE prophylaxis- Heparin -Avoid nephrotoxins and renally dose all medications -Stress ulcer prophylaxis- Famotidine -Mobility, frequent turning, off loading per facility protocol to prevent pressure ulcers -Maintain sleep wake cycle, avoid benzodiazepines. -Limit delirium CONDITION:CRITICAL PROGNOSIS: GUARDED CODE STATUS; FULL CODE The high probability of a clinically significant, sudden or life threatening deterioration of the respiratory, cardiovascular, neurology system required my full and direct attention, intervention and personal management. The aggregate critical care time was [33] minutes. 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 Vitals, labs, medications, chart and imaging reviewed. Discussed with respiratory and nursing care staff. s/p trach and PEG. On PEEP 10 and FIO2 70% with episodes of desaturations Right lung on imaging remains expanded No reported fevers, blood pressure acceptable range. Objective Vital Signs - 12hr 04/16/22 04/16/22 04/16/22 03:00 04:00 05:00 Temperature 98.8 F Pulse Rate 106 H 110 H 105 H Pulse Rate [ Anterior Bilateral Throughout] Pulse Rate [ 106 H From Monitor] Pulse Rate [ Left Dorsalis Pedis] Pulse Rate [ Left Radial] Pulse Rate [ Right Dorsalis Pedis] Pulse Rate [ Right Radial] Respiratory 14 14 14 Rate Respiratory Rate [Anterior Bilateral Throughout] Blood Pressure 124/82 117/71 118/73 O2 Sat by Pulse 96 94 95 Oximetry 04/16/22 04/16/22 04/16/22 06:00 06:21 07:00 Temperature Pulse Rate 106 H 111 H 116 H Pulse Rate [ Anterior Bilateral Throughout] Pulse Rate [ From Monitor] Pulse Rate [ Left Dorsalis Pedis] Pulse Rate [ Left Radial] Pulse Rate [ Right Dorsalis Pedis] Pulse Rate [ Right Radial] Respiratory 15 16 Rate Respiratory Rate [Anterior Bilateral Throughout] Blood Pressure 112/69 123/73 122/73 O2 Sat by Pulse 90 Oximetry 04/16/22 04/16/22 04/16/22 08:00 09:00 10:00 Temperature 99 F Pulse Rate 116 H 126 H 126 H Pulse Rate [ 91 H Anterior Bilateral Throughout] Pulse Rate [ 116 H From Monitor] Pulse Rate [ 110 H Left Dorsalis Pedis] Pulse Rate [ 112 H Left Radial] Pulse Rate [ 110 H Right Dorsalis Pedis] Pulse Rate [ 112 H Right Radial] Respiratory 14 15 14 Rate Respiratory 22 Rate [Anterior Bilateral Throughout] Blood Pressure 114/65 119/62 129/72 O2 Sat by Pulse 92 91 Oximetry 04/16/22 04/16/22 04/16/22 11:00 12:00 12:07 Temperature 100 F H Pulse Rate 121 H 121 H 124 H Pulse Rate [ Anterior Bilateral Throughout] Pulse Rate [ 121 H From Monitor] Pulse Rate [ Left Dorsalis Pedis] Pulse Rate [ Left Radial] Pulse Rate [ Right Dorsalis Pedis] Pulse Rate [ Right Radial] Respiratory 14 15 Rate Respiratory Rate [Anterior Bilateral Throughout] Blood Pressure 133/75 139/77 139/77 O2 Sat by Pulse 92 90 Oximetry 04/16/22 04/16/22 13:00 13:34 Temperature Pulse Rate 111 H 111 H Pulse Rate [ Anterior Bilateral Throughout] Pulse Rate [ From Monitor] Pulse Rate [ Left Dorsalis Pedis] Pulse Rate [ Left Radial] Pulse Rate [ Right Dorsalis Pedis] Pulse Rate [ Right Radial] Respiratory 15 Rate Respiratory Rate [Anterior Bilateral Throughout] Blood Pressure 129/77 129/77 O2 Sat by Pulse 84 91 Oximetry Constitutional: alert, appears uncomfortable, other (orally intubated in bed with mildly increased respiratory effort at rest) Eyes: non-icteric ENT: oropharynx moist, other (ETT 24 cm [place]) Neck: supple, no lymphadenopathy, no JVD, other (RIJ CVL) Effort: mildly labored Ascultation: Bilateral: diminished breath sounds (R>L base), rhonchi (basilar predominant) Percussion: Bilateral: not dull Cardiovascular: regular rate and rhythm, other (S1,S2) Gastrointestinal: normoactive bowel sounds, soft, non-tender, non-distended Integumentary: normal Extremities: no cyanosis, no edema, pink and warm, pulses normal Neurologic: pupils equal and round, other (functional quadriplegia) Psychiatric: anxious, other CBC and BMP: 04/19/22 04:08 04/19/22 04:08 ABG, PT/INR, D-dimer: ABG ABG pH 7.324 pH Units (7.350-7.450) L 04/16/22 14:00 ABG pCO2 89.1 mm Hg 04/16/22 14:00 ABG pO2 55.6 mm Hg (80.0-90.0) L 04/16/22 14:00 ABG O2 Saturation 87.1 % (95.0-99.0) L 04/16/22 14:00 PT/INR, D-dimer PT 13.6 Sec. (12.2-14.9) 04/13/22 04:30 INR 0.94 (0.87-1.13) 04/13/22 04:30 Abnormal lab findings: Abnormal Labs 04/02/22 04/02/22 04/02/22 19:39 19:39 19:39 WBC 14.3 H RBC Hgb Hct MCV 96 H Plt Count 104 L Lymph % (Auto) [place] % (Auto) Lymph # (Auto) [place] # (Auto) Seg Neutrophils % Seg Neuts % (Manual) 94.0 H Lymphocytes % (Manual) 1.0 L Seg Neutrophils # Seg Neutrophils # Man 13.4 H Lymphocytes # (Manual) 0.1 L PT 15.9 H INR 1.14 H ABG pH ABG pO2 ABG HCO3 ABG O2 Saturation ABG Base Excess ABG Hemoglobin Oxyhemoglobin Sodium 151 H Potassium Chloride Carbon Dioxide Creatinine 0.5 L Glucose POC Glucose Calcium 8.2 L Phosphorus Magnesium 1.60 L Total Creatine Kinase CK-MB (CK-2) Rel Index Troponin T 0.048 H C-Reactive Protein Total Protein 4.6 L Albumin 2.7 L LDL Cholesterol Direct 27 L Urine WBC (Auto) 04/02/22 04/03/22 04/03/22 19:42 05:14 06:30 WBC RBC Hgb Hct MCV Plt Count Lymph % (Auto) [place] % (Auto) Lymph # (Auto) [place] # (Auto) Seg Neutrophils % Seg Neuts % (Manual) Lymphocytes % (Manual) Seg Neutrophils # Seg Neutrophils # Man Lymphocytes # (Manual) PT INR ABG pH 7.471 H 7.496 H ABG pO2 47.8 L 91.0 H ABG HCO3 30.6 H ABG O2 Saturation 94.4 L ABG Base Excess 6.2 H ABG Hemoglobin 11.0 L 12.8 L Oxyhemoglobin 93.1 L Sodium 149 H Potassium 3.4 L Chloride Carbon Dioxide Creatinine 0.4 L Glucose POC Glucose Calcium Phosphorus Magnesium Total Creatine Kinase CK-MB (CK-2) Rel Index Troponin T C-Reactive Protein Total Protein Albumin LDL Cholesterol Direct Urine WBC (Auto) 04/04/22 04/04/22 04/04/22 04:18 04:18 05:50 WBC 11.8 H RBC Hgb Hct MCV Plt Count 132 L Lymph % (Auto) [place] % (Auto) Lymph # (Auto) [place] # (Auto) Seg Neutrophils % Seg Neuts % (Manual) Lymphocytes % (Manual) Seg Neutrophils # Seg Neutrophils # Man Lymphocytes # (Manual) PT INR ABG pH 7.517 H ABG pO2 115.5 H ABG HCO3 29.9 H ABG O2 Saturation ABG Base Excess 6.7 H ABG Hemoglobin 12.3 L Oxyhemoglobin Sodium Potassium 3.5 L Chloride Carbon Dioxide 31 H Creatinine 0.3 L Glucose 153 H POC Glucose Calcium Phosphorus 1.40 L Magnesium 1.50 L Total Creatine Kinase CK-MB (CK-2) Rel Index Troponin T C-Reactive Protein 31.60 H Total Protein Albumin LDL Cholesterol Direct Urine WBC (Auto) 04/05/22 04/05/22 04/05/22 02:50 05:25 11:28 WBC RBC Hgb Hct MCV Plt Count Lymph % (Auto) [place] % (Auto) Lymph # (Auto) [place] # (Auto) Seg Neutrophils % Seg Neuts % (Manual) Lymphocytes % (Manual) Seg Neutrophils # Seg Neutrophils # Man Lymphocytes # (Manual) PT INR ABG pH 7.455 H ABG pO2 50.7 L ABG HCO3 30.5 H ABG O2 Saturation 89.4 L ABG Base Excess 5.9 H ABG Hemoglobin 11.8 L Oxyhemoglobin 88.2 L Sodium Potassium Chloride Carbon Dioxide 32 H Creatinine 0.2 L Glucose 110 H POC Glucose 124 H Calcium 7.9 L Phosphorus Magnesium Total Creatine Kinase CK-MB (CK-2) Rel Index Troponin T C-Reactive Protein Total Protein Albumin LDL Cholesterol Direct Urine WBC (Auto) 04/05/22 04/05/22 04/06/22 17:45 Unknown 04:00 WBC RBC 3.55 L Hgb 11.1 L 11.5 L Hct 33.2 L 35.1 L MCV Plt Count 113 L 114 L Lymph % (Auto) [place] % (Auto) Lymph # (Auto) [place] # (Auto) Seg Neutrophils % Seg Neuts % (Manual) Lymphocytes % (Manual) Seg Neutrophils # Seg Neutrophils # Man Lymphocytes # (Manual) PT INR ABG pH ABG pO2 ABG HCO3 ABG O2 Saturation ABG Base Excess ABG Hemoglobin Oxyhemoglobin Sodium Potassium Chloride Carbon Dioxide Creatinine Glucose POC Glucose Calcium Phosphorus Magnesium Total Creatine Kinase CK-MB (CK-2) Rel Index Troponin T C-Reactive Protein Total Protein Albumin LDL Cholesterol Direct Urine WBC (Auto) 8.0 H 04/06/22 04/06/22 04/07/22 04:00 08:30 00:04 WBC RBC Hgb Hct MCV Plt Count Lymph % (Auto) [place] % (Auto) Lymph # (Auto) [place] # (Auto) Seg Neutrophils % Seg Neuts % (Manual) Lymphocytes % (Manual) Seg Neutrophils # Seg Neutrophils # Man Lymphocytes # (Manual) PT INR ABG pH ABG pO2 60.8 L ABG HCO3 30.5 H ABG O2 Saturation 93.3 L ABG Base Excess 4.9 H ABG Hemoglobin 12.4 L Oxyhemoglobin 92.1 L Sodium Potassium 3.0 L Chloride Carbon Dioxide Creatinine < 0.2 L Glucose 130 H POC Glucose 117 H Calcium 8.1 L Phosphorus Magnesium Total Creatine Kinase CK-MB (CK-2) Rel Index Troponin T C-Reactive Protein Total Protein Albumin LDL Cholesterol Direct Urine WBC (Auto) 04/07/22 04/07/22 04/07/22 03:51 03:51 03:51 WBC 14.6 H RBC 3.57 L Hgb 11.1 L Hct 33.2 L MCV Plt Count 118 L Lymph % (Auto) 4.3 L [place] % (Auto) 8.8 H Lymph # (Auto) 0.6 L [place] # (Auto) 1.3 H Seg Neutrophils % 86.6 H Seg Neuts % (Manual) Lymphocytes % (Manual) Seg Neutrophils # 12.7 H Seg Neutrophils # Man Lymphocytes # (Manual) PT 15.2 H INR ABG pH ABG pO2 ABG HCO3 ABG O2 Saturation ABG Base Excess ABG Hemoglobin Oxyhemoglobin Sodium 133 L Potassium Chloride 96.0 L Carbon Dioxide 31 H Creatinine 0.2 L Glucose 130 H POC Glucose Calcium 8.0 L Phosphorus Magnesium Total Creatine Kinase CK-MB (CK-2) Rel Index Troponin T C-Reactive Protein Total Protein Albumin LDL Cholesterol Direct Urine WBC (Auto) 04/07/22 04/07/22 04/08/22 04:25 09:10 04:49 WBC 16.1 H RBC 3.54 L Hgb 10.9 L Hct 33.3 L MCV Plt Count Lymph % (Auto) [place] % (Auto) Lymph # (Auto) [place] # (Auto) Seg Neutrophils % Seg Neuts % (Manual) Lymphocytes % (Manual) Seg Neutrophils # Seg Neutrophils # Man Lymphocytes # (Manual) PT INR ABG pH ABG pO2 71.0 L 63.4 L ABG HCO3 31.5 H 40.0 H ABG O2 Saturation 94.9 L ABG Base Excess 5.9 H 13.6 H ABG Hemoglobin 11.3 L 9.0 L Oxyhemoglobin 93.6 L Sodium Potassium Chloride Carbon Dioxide Creatinine Glucose POC Glucose Calcium Phosphorus Magnesium Total Creatine Kinase CK-MB (CK-2) Rel Index Troponin T C-Reactive Protein Total Protein Albumin LDL Cholesterol Direct Urine WBC (Auto) 04/08/22 04/08/22 04/08/22 04:49 09:53 10:25 WBC RBC Hgb Hct MCV Plt Count Lymph % (Auto) [place] % (Auto) Lymph # (Auto) [place] # (Auto) Seg Neutrophils % Seg Neuts % (Manual) Lymphocytes % (Manual) Seg Neutrophils # Seg Neutrophils # Man Lymphocytes # (Manual) PT INR ABG pH ABG pO2 ABG HCO3 34.7 H ABG O2 Saturation ABG Base Excess 7.9 H ABG Hemoglobin 11.0 L Oxyhemoglobin Sodium 136 L Potassium Chloride 97.7 L Carbon Dioxide 33 H Creatinine 0.2 L Glucose 155 H POC Glucose Calcium Phosphorus Magnesium Total Creatine Kinase CK-MB (CK-2) Rel Index Troponin T 0.030 H C-Reactive Protein Total Protein Albumin LDL Cholesterol Direct Urine WBC (Auto) 04/08/22 04/08/22 04/08/22 11:19 17:47 18:06 WBC RBC Hgb Hct MCV Plt Count Lymph % (Auto) [place] % (Auto) Lymph # (Auto) [place] # (Auto) Seg Neutrophils % Seg Neuts % (Manual) Lymphocytes % (Manual) Seg Neutrophils # Seg Neutrophils # Man Lymphocytes # (Manual) PT INR ABG pH ABG pO2 ABG HCO3 ABG O2 Saturation ABG Base Excess ABG Hemoglobin Oxyhemoglobin Sodium Potassium Chloride Carbon Dioxide Creatinine Glucose POC Glucose 121 H Calcium Phosphorus Magnesium Total Creatine Kinase 31 L 46 L CK-MB (CK-2) Rel Index 6.4 H 5.6 H Troponin T 0.030 H 0.031 H C-Reactive Protein Total Protein Albumin LDL Cholesterol Direct Urine WBC (Auto) 04/09/22 04/09/22 04/09/22 04:35 04:35 11:24 WBC 11.5 H RBC 3.16 L Hgb 9.9 L Hct 29.4 L MCV Plt Count 131 L Lymph % (Auto) [place] % (Auto) Lymph # (Auto) [place] # (Auto) Seg Neutrophils % Seg Neuts % (Manual) Lymphocytes % (Manual) Seg Neutrophils # Seg Neutrophils # Man Lymphocytes # (Manual) PT INR ABG pH ABG pO2 ABG HCO3 ABG O2 Saturation ABG Base Excess ABG Hemoglobin Oxyhemoglobin Sodium Potassium Chloride 97.1 L Carbon Dioxide 35 H Creatinine < 0.2 L Glucose 145 H POC Glucose 147 H Calcium Phosphorus Magnesium Total Creatine Kinase CK-MB (CK-2) Rel Index Troponin T C-Reactive Protein Total Protein Albumin LDL Cholesterol Direct Urine WBC (Auto) 04/09/22 04/09/22 04/09/22 13:00 17:32 23:48 WBC RBC Hgb Hct MCV Plt Count Lymph % (Auto) [place] % (Auto) Lymph # (Auto) [place] # (Auto) Seg Neutrophils % Seg Neuts % (Manual) Lymphocytes % (Manual) Seg Neutrophils # Seg Neutrophils # Man Lymphocytes # (Manual) PT INR ABG pH ABG pO2 66.6 L ABG HCO3 38.2 H ABG O2 Saturation 94.4 L ABG Base Excess 10.7 H ABG Hemoglobin 10.7 L Oxyhemoglobin 92.8 L Sodium Potassium Chloride Carbon Dioxide Creatinine Glucose POC Glucose 143 H 114 H Calcium Phosphorus Magnesium Total Creatine Kinase CK-MB (CK-2) Rel Index Troponin T C-Reactive Protein Total Protein Albumin LDL Cholesterol Direct Urine WBC (Auto) 04/10/22 04/10/22 04/10/22 04:48 04:48 05:34 WBC RBC 2.91 L Hgb 9.1 L Hct 27.7 L MCV 95 H Plt Count Lymph % (Auto) [place] % (Auto) Lymph # (Auto) [place] # (Auto) Seg Neutrophils % Seg Neuts % (Manual) Lymphocytes % (Manual) Seg Neutrophils # Seg Neutrophils # Man Lymphocytes # (Manual) PT INR ABG pH ABG pO2 ABG HCO3 ABG O2 Saturation ABG Base Excess ABG Hemoglobin Oxyhemoglobin Sodium Potassium Chloride 95.7 L Carbon Dioxide 38 H Creatinine < 0.2 L Glucose 118 H POC Glucose 127 H Calcium Phosphorus Magnesium Total Creatine Kinase CK-MB (CK-2) Rel Index Troponin T C-Reactive Protein Total Protein Albumin LDL Cholesterol Direct Urine WBC (Auto) 04/10/22 04/11/22 04/11/22 23:10 04:15 04:15 WBC 17.2 H RBC 2.98 L Hgb 9.2 L Hct 27.9 L MCV Plt Count Lymph % (Auto) [place] % (Auto) Lymph # (Auto) [place] # (Auto) Seg Neutrophils % Seg Neuts % (Manual) Lymphocytes % (Manual) Seg Neutrophils # Seg Neutrophils # Man Lymphocytes # (Manual) PT INR ABG pH ABG pO2 ABG HCO3 ABG O2 Saturation ABG Base Excess ABG Hemoglobin Oxyhemoglobin Sodium Potassium Chloride 96.1 L Carbon Dioxide 35 H Creatinine < 0.2 L Glucose 138 H POC Glucose 106 H Calcium 8.3 L Phosphorus Magnesium Total Creatine Kinase CK-MB (CK-2) Rel Index Troponin T C-Reactive Protein Total Protein Albumin LDL Cholesterol Direct Urine WBC (Auto) 04/11/22 04/11/22 04/11/22 05:31 13:18 16:20 WBC RBC Hgb Hct MCV Plt Count Lymph % (Auto) [place] % (Auto) Lymph # (Auto) [place] # (Auto) Seg Neutrophils % Seg Neuts % (Manual) Lymphocytes % (Manual) Seg Neutrophils # Seg Neutrophils # Man Lymphocytes # (Manual) PT INR ABG pH ABG pO2 57.8 L ABG HCO3 40.5 H ABG O2 Saturation 90.6 L ABG Base Excess 12.6 H ABG Hemoglobin 10.5 L Oxyhemoglobin 89.0 L Sodium Potassium Chloride Carbon Dioxide Creatinine Glucose POC Glucose 129 H 132 H Calcium Phosphorus Magnesium Total Creatine Kinase CK-MB (CK-2) Rel Index Troponin T C-Reactive Protein Total Protein Albumin LDL Cholesterol Direct Urine WBC (Auto) 04/11/22 04/11/22 04/12/22 17:29 23:17 04:00 WBC 17.4 H RBC 2.96 L Hgb 9.0 L Hct 28.0 L MCV 95 H Plt Count Lymph % (Auto) [place] % (Auto) Lymph # (Auto) [place] # (Auto) Seg Neutrophils % Seg Neuts % (Manual) Lymphocytes % (Manual) Seg Neutrophils # Seg Neutrophils # Man Lymphocytes # (Manual) PT INR ABG pH ABG pO2 ABG HCO3 ABG O2 Saturation ABG Base Excess ABG Hemoglobin Oxyhemoglobin Sodium Potassium Chloride Carbon Dioxide Creatinine Glucose POC Glucose 125 H 151 H Calcium Phosphorus Magnesium Total Creatine Kinase CK-MB (CK-2) Rel Index Troponin T C-Reactive Protein Total Protein Albumin LDL Cholesterol Direct Urine WBC (Auto) 04/12/22 04/12/22 04/12/22 04:00 17:03 23:39 WBC RBC Hgb Hct MCV Plt Count Lymph % (Auto) [place] % (Auto) Lymph # (Auto) [place] # (Auto) Seg Neutrophils % Seg Neuts % (Manual) Lymphocytes % (Manual) Seg Neutrophils # Seg Neutrophils # Man Lymphocytes # (Manual) PT INR ABG pH ABG pO2 ABG HCO3 ABG O2 Saturation ABG Base Excess ABG Hemoglobin Oxyhemoglobin Sodium Potassium Chloride 97.4 L Carbon Dioxide 37 H Creatinine < 0.2 L Glucose 127 H POC Glucose 106 H 107 H Calcium Phosphorus Magnesium Total Creatine Kinase CK-MB (CK-2) Rel Index Troponin T C-Reactive Protein Total Protein Albumin LDL Cholesterol Direct Urine WBC (Auto) 04/13/22 04/13/22 04/13/22 04:30 04:30 17:39 WBC 14.1 H RBC 2.66 L Hgb 8.4 L Hct 25.5 L MCV 96 H Plt Count Lymph % (Auto) [place] % (Auto) Lymph # (Auto) [place] # (Auto) Seg Neutrophils % Seg Neuts % (Manual) Lymphocytes % (Manual) Seg Neutrophils # Seg Neutrophils # Man Lymphocytes # (Manual) PT INR ABG pH ABG pO2 ABG HCO3 ABG O2 Saturation ABG Base Excess ABG Hemoglobin Oxyhemoglobin Sodium Potassium Chloride 93.9 L Carbon Dioxide 39 H Creatinine < 0.2 L Glucose POC Glucose 134 H Calcium Phosphorus 1.90 L Magnesium Total Creatine Kinase CK-MB (CK-2) Rel Index Troponin T C-Reactive Protein Total Protein Albumin LDL Cholesterol Direct Urine WBC (Auto) 04/14/22 04/14/22 04/14/22 05:03 05:03 09:10 WBC 15.6 H RBC 3.02 L Hgb 9.3 L Hct 28.8 L MCV 95 H Plt Count Lymph % (Auto) [place] % (Auto) Lymph # (Auto) [place] # (Auto) Seg Neutrophils % Seg Neuts % (Manual) Lymphocytes % (Manual) Seg Neutrophils # Seg Neutrophils # Man Lymphocytes # (Manual) PT INR ABG pH ABG pO2 66.9 L ABG HCO3 44.5 H ABG O2 Saturation ABG Base Excess 17.2 H ABG Hemoglobin 8.1 L Oxyhemoglobin 94.8 L Sodium Potassium Chloride 93.8 L Carbon Dioxide 42 H* Creatinine < 0.2 L Glucose 117 H POC Glucose Calcium Phosphorus Magnesium Total Creatine Kinase CK-MB (CK-2) Rel Index Troponin T C-Reactive Protein Total Protein Albumin LDL Cholesterol Direct Urine WBC (Auto) 04/15/22 04/15/22 04/16/22 04:44 04:44 04:16 WBC 13.0 H 12.6 H RBC 3.19 L 3.09 L Hgb 9.6 L 9.5 L Hct 30.2 L 29.1 L MCV 95 H Plt Count 456 H Lymph % (Auto) [place] % (Auto) Lymph # (Auto) [place] # (Auto) Seg Neutrophils % Seg Neuts % (Manual) Lymphocytes % (Manual) Seg Neutrophils # Seg Neutrophils # Man Lymphocytes # (Manual) PT INR ABG pH ABG pO2 ABG HCO3 ABG O2 Saturation ABG Base Excess ABG Hemoglobin Oxyhemoglobin Sodium Potassium Chloride 95.5 L Carbon Dioxide 37 H Creatinine < 0.2 L Glucose POC Glucose Calcium Phosphorus Magnesium Total Creatine Kinase CK-MB (CK-2) Rel Index Troponin T C-Reactive Protein Total Protein Albumin LDL Cholesterol Direct Urine WBC (Auto) 04/16/22 04/16/22 04/16/22 04:16 05:00 14:00 WBC RBC Hgb Hct MCV Plt Count Lymph % (Auto) [place] % (Auto) Lymph # (Auto) [place] # (Auto) Seg Neutrophils % Seg Neuts % (Manual) Lymphocytes % (Manual) Seg Neutrophils # Seg Neutrophils # Man Lymphocytes # (Manual) PT INR ABG pH 7.324 L ABG pO2 55.6 L ABG HCO3 45.3 H ABG O2 Saturation 87.1 L ABG Base Excess 16.6 H ABG Hemoglobin 8.6 L Oxyhemoglobin 85.7 L Sodium Potassium Chloride 97.6 L Carbon Dioxide 36 H Creatinine < 0.2 L Glucose 109 H POC Glucose 120 H Calcium Phosphorus Magnesium Total Creatine Kinase CK-MB (CK-2) Rel Index Troponin T C-Reactive Protein Total Protein Albumin LDL Cholesterol Direct Urine WBC (Auto) Chest x-ray: image reviewed Allied health notes reviewed: RT
[2022-04-17] MEDS: METOPROLOL TARTRATE 25 MG TAB FEEDTUBE SCH ×5 (00:15→23:21)
[2022-04-17] MEDS: ACETYLCYSTEINE 10% 100 MG/1 ML *FOR INHALATION USE INHALATION SCH ×4 (00:30→23:39)
[2022-04-17 05:11] LABS: Hemoglobin 9.4 gm/dl (11.8-15.2); Mean Corpuscular HGB Conc 32 % (32-34); Mean Corpuscular Volume 94 fl (84-94); Red Blood Count 3.08 M/mm3 (3.65-5.03); Red Cell Distribution Width 13.7 % (13.2-15.2)
[2022-04-17] MEDS: CEFEPIME/NS 1 GM/100 ML 1 GM/100 ML BAG IV SCH ×4 (05:15→21:45)
[2022-04-17] MEDS: INSULIN REGULAR, HUMAN 100 UNITS/1 ML SUB-Q SCH ×5 (05:16→23:20)
[2022-04-17 05:18] LABS: Platelet Count 337 K/mm3 (140-440)
[2022-04-17] MEDS: QUEtiapine 25 MG TAB PO SCH ×3 (05:22→21:44)
[2022-04-17] MEDS: HEPARIN 5,000 UNIT/1 ML VIAL SUB-Q SCH ×3 (05:23→21:44)
[2022-04-17 05:32] LABS: Blood Urea Nitrogen 15 mg/dL (9-20); Calcium 8.3 mg/dL (8.4-10.2); Hemolysis Index 101
[2022-04-17 05:52] LABS: BUN/Creatinine Ratio 75
[2022-04-17] MEDS: ALBUTEROL 2.5 MG/3 ML NEBU IH SCH ×3 (09:00→23:38)
[2022-04-17 10:00] LABS: ABG Base Excess 19.2 mmol/L (-2.0-3.0); ABG HCO3 48.2 mmol/L (20.0-26.0); ABG Methemoglobin 0.3 % (0.0-1.5); ABG Oxygen Saturation 97.4 % (95.0-99.0); ABG PCO2 90.3 mm Hg; ABG PH 7.345 pH Units (7.350-7.450); ABG PO2 81.4 mm Hg (80.0-90.0)
--- NOTE | 2022-04-17 10:52 | Progress Note ---
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 Right lung hemiopacification- Atelectasis s/p Bronchoscopy Oropharyngeal dysphagia s/p PEG Protein calorie malnutrition Acute Bronchopneumonia HCAP Hypotension NSTEMI H/o Amyotrophic Lateral Sclerosis Nonverbal at Baseline Thrombocytopenia Trach care, airway clearance, Continue with medical management of atelectasis- continue with bronchodilators and chest PT Still on high PEEP and FIO2, will wean down to acceptable range prior to discharge to LTACH Replete electrolytes as clinically indicated- keep potassium at 4, Magnesium at 2 and Phos at 2.5 to optimize respiratory muscle function -Titrate supplemental oxygen to keep SpO2 89-92% -VAP bundle addressed, aspiration precautions HOB >40 -Lung protective strategies -Daily assessment for readiness to wean. -Monitoring renal function, hemodynamics and electrolyte profile -Accuchecks with glycemic control. target blood glucose 140-180 mg/dL. Avoid hypoglycemia -Continue enteric nutritional support, bowel regimen -VTE prophylaxis- Heparin -Avoid nephrotoxins and renally dose all medications -Stress ulcer prophylaxis- Famotidine -Mobility, frequent turning, off loading per facility protocol to prevent pressure ulcers -Maintain sleep wake cycle, avoid benzodiazepines. -Limit delirium CONDITION:CRITICAL PROGNOSIS: GUARDED CODE STATUS; FULL CODE The high probability of a clinically significant, sudden or life threatening deterioration of the respiratory, cardiovascular, neurology system required my full and direct attention, intervention and personal management. The aggregate critical care time was [33] minutes. 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 Vitals, labs, medications, chart and imaging reviewed. Discussed with respiratory and nursing care staff. s/p trach and PEG. On PEEP 10 and FIO2 70% Right lung on imaging remains expanded No reported fevers, blood pressure acceptable range. Objective Vital Signs - 12hr 04/16/22 04/16/22 04/16/22 23:00 23:10 23:50 Temperature 99.4 F Pulse Rate 107 H 105 H Pulse Rate [ Anterior Bilateral Throughout] Pulse Rate [ Anterior Right] Respiratory 15 14 Rate Respiratory Rate [Anterior Bilateral Throughout] Respiratory Rate [Anterior Right] Blood Pressure 123/68 123/68 O2 Sat by Pulse 95 98 Oximetry O2 Sat by Pulse Oximetry [ Assessment] 04/17/22 04/17/22 04/17/22 00:00 00:11 00:13 Temperature Pulse Rate 104 H Pulse Rate [ 104 H Anterior Bilateral Throughout] Pulse Rate [ Anterior Right] Respiratory 14 Rate Respiratory 20 Rate [Anterior Bilateral Throughout] Respiratory Rate [Anterior Right] Blood Pressure 114/71 O2 Sat by Pulse 94 Oximetry O2 Sat by Pulse 96 Oximetry [ Assessment] 04/17/22 04/17/22 04/17/22 00:15 00:50 01:00 Temperature Pulse Rate 81 96 H 115 H Pulse Rate [ Anterior Bilateral Throughout] Pulse Rate [ Anterior Right] Respiratory 81 H 16 Rate Respiratory Rate [Anterior Bilateral Throughout] Respiratory Rate [Anterior Right] Blood Pressure 102/57 116/69 O2 Sat by Pulse 98 97 Oximetry O2 Sat by Pulse Oximetry [ Assessment] 04/17/22 04/17/22 04/17/22 01:15 02:00 02:15 Temperature Pulse Rate 82 94 H 94 H Pulse Rate [ Anterior Bilateral Throughout] Pulse Rate [ Anterior Right] Respiratory 14 14 Rate Respiratory Rate [Anterior Bilateral Throughout] Respiratory Rate [Anterior Right] Blood Pressure 109/62 104/57 O2 Sat by Pulse 98 98 Oximetry O2 Sat by Pulse Oximetry [ Assessment] 04/17/22 04/17/22 04/17/22 03:00 03:30 03:34 Temperature 99.4 F Pulse Rate 82 96 H Pulse Rate [ Anterior Bilateral Throughout] Pulse Rate [ Anterior Right] Respiratory 14 Rate Respiratory Rate [Anterior Bilateral Throughout] Respiratory Rate [Anterior Right] Blood Pressure 109/62 O2 Sat by Pulse Oximetry O2 Sat by Pulse Oximetry [ Assessment] 04/17/22 04/17/22 04/17/22 03:39 04:00 05:00 Temperature Pulse Rate 88 96 H 102 H Pulse Rate [ Anterior Bilateral Throughout] Pulse Rate [ Anterior Right] Respiratory 16 14 Rate Respiratory Rate [Anterior Bilateral Throughout] Respiratory Rate [Anterior Right] Blood Pressure 109/62 129/70 128/76 O2 Sat by Pulse 97 93 93 Oximetry O2 Sat by Pulse Oximetry [ Assessment] 04/17/22 04/17/22 04/17/22 05:16 05:23 06:00 Temperature Pulse Rate 102 H 99 H Pulse Rate [ Anterior Bilateral Throughout] Pulse Rate [ Anterior Right] Respiratory 14 15 Rate Respiratory Rate [Anterior Bilateral Throughout] Respiratory Rate [Anterior Right] Blood Pressure 129/75 119/73 O2 Sat by Pulse 98 96 Oximetry O2 Sat by Pulse Oximetry [ Assessment] 04/17/22 04/17/22 08:55 09:00 Temperature Pulse Rate 98 H Pulse Rate [ 95 H Anterior Bilateral Throughout] Pulse Rate [ 98 H Anterior Right] Respiratory Rate Respiratory 18 Rate [Anterior Bilateral Throughout] Respiratory 17 Rate [Anterior Right] Blood Pressure 126/75 O2 Sat by Pulse 96 Oximetry O2 Sat by Pulse 97 Oximetry [ Assessment] Constitutional: alert, appears uncomfortable, other (trach to MVS in bed with mildly increased respiratory effort at rest) Eyes: non-icteric ENT: oropharynx moist Neck: supple, no lymphadenopathy, no JVD, other (RIJ CVL) Effort: mildly labored Ascultation: Bilateral: diminished breath sounds (R>L base), rhonchi (basilar predominant) Percussion: Bilateral: not dull Cardiovascular: regular rate and rhythm, other (S1,S2) Gastrointestinal: normoactive bowel sounds, soft, non-tender, non-distended, other (PEG) Integumentary: normal Extremities: no cyanosis, no edema, pink and warm, pulses normal Neurologic: pupils equal and round, other (functional quadriplegia) Psychiatric: anxious CBC and BMP: 04/19/22 04:08 04/19/22 04:08 ABG, PT/INR, D-dimer: ABG ABG pH 7.345 pH Units (7.350-7.450) L 04/17/22 09:15 ABG pCO2 90.3 mm Hg 04/17/22 09:15 ABG pO2 81.4 mm Hg (80.0-90.0) 04/17/22 09:15 ABG O2 Saturation 97.4 % (95.0-99.0) 04/17/22 09:15 PT/INR, D-dimer PT 13.6 Sec. (12.2-14.9) 04/13/22 04:30 INR 0.94 (0.87-1.13) 04/13/22 04:30 Abnormal lab findings: Abnormal Labs 04/02/22 04/02/22 04/02/22 19:39 19:39 19:39 WBC 14.3 H RBC Hgb Hct MCV 96 H Plt Count 104 L Lymph % (Auto) [place] % (Auto) Lymph # (Auto) [place] # (Auto) Seg Neutrophils % Seg Neuts % (Manual) 94.0 H Lymphocytes % (Manual) 1.0 L Seg Neutrophils # Seg Neutrophils # Man 13.4 H Lymphocytes # (Manual) 0.1 L PT 15.9 H INR 1.14 H ABG pH ABG pO2 ABG HCO3 ABG O2 Saturation ABG Base Excess ABG Hemoglobin Oxyhemoglobin Sodium 151 H Potassium Chloride Carbon Dioxide Creatinine 0.5 L Glucose POC Glucose Calcium 8.2 L Phosphorus Magnesium 1.60 L Total Creatine Kinase CK-MB (CK-2) Rel Index Troponin T 0.048 H C-Reactive Protein Total Protein 4.6 L Albumin 2.7 L LDL Cholesterol Direct 27 L Urine WBC (Auto) 04/02/22 04/03/22 04/03/22 19:42 05:14 06:30 WBC RBC Hgb Hct MCV Plt Count Lymph % (Auto) [place] % (Auto) Lymph # (Auto) [place] # (Auto) Seg Neutrophils % Seg Neuts % (Manual) Lymphocytes % (Manual) Seg Neutrophils # Seg Neutrophils # Man Lymphocytes # (Manual) PT INR ABG pH 7.471 H 7.496 H ABG pO2 47.8 L 91.0 H ABG HCO3 30.6 H ABG O2 Saturation 94.4 L ABG Base Excess 6.2 H ABG Hemoglobin 11.0 L 12.8 L Oxyhemoglobin 93.1 L Sodium 149 H Potassium 3.4 L Chloride Carbon Dioxide Creatinine 0.4 L Glucose POC Glucose Calcium Phosphorus Magnesium Total Creatine Kinase CK-MB (CK-2) Rel Index Troponin T C-Reactive Protein Total Protein Albumin LDL Cholesterol Direct Urine WBC (Auto) 04/04/22 04/04/22 04/04/22 04:18 04:18 05:50 WBC 11.8 H RBC Hgb Hct MCV Plt Count 132 L Lymph % (Auto) [place] % (Auto) Lymph # (Auto) [place] # (Auto) Seg Neutrophils % Seg Neuts % (Manual) Lymphocytes % (Manual) Seg Neutrophils # Seg Neutrophils # Man Lymphocytes # (Manual) PT INR ABG pH 7.517 H ABG pO2 115.5 H ABG HCO3 29.9 H ABG O2 Saturation ABG Base Excess 6.7 H ABG Hemoglobin 12.3 L Oxyhemoglobin Sodium Potassium 3.5 L Chloride Carbon Dioxide 31 H Creatinine 0.3 L Glucose 153 H POC Glucose Calcium Phosphorus 1.40 L Magnesium 1.50 L Total Creatine Kinase CK-MB (CK-2) Rel Index Troponin T C-Reactive Protein 31.60 H Total Protein Albumin LDL Cholesterol Direct Urine WBC (Auto) 04/05/22 04/05/22 04/05/22 02:50 05:25 11:28 WBC RBC Hgb Hct MCV Plt Count Lymph % (Auto) [place] % (Auto) Lymph # (Auto) [place] # (Auto) Seg Neutrophils % Seg Neuts % (Manual) Lymphocytes % (Manual) Seg Neutrophils # Seg Neutrophils # Man Lymphocytes # (Manual) PT INR ABG pH 7.455 H ABG pO2 50.7 L ABG HCO3 30.5 H ABG O2 Saturation 89.4 L ABG Base Excess 5.9 H ABG Hemoglobin 11.8 L Oxyhemoglobin 88.2 L Sodium Potassium Chloride Carbon Dioxide 32 H Creatinine 0.2 L Glucose 110 H POC Glucose 124 H Calcium 7.9 L Phosphorus Magnesium Total Creatine Kinase CK-MB (CK-2) Rel Index Troponin T C-Reactive Protein Total Protein Albumin LDL Cholesterol Direct Urine WBC (Auto) 04/05/22 04/05/22 04/06/22 17:45 Unknown 04:00 WBC RBC 3.55 L Hgb 11.1 L 11.5 L Hct 33.2 L 35.1 L MCV Plt Count 113 L 114 L Lymph % (Auto) [place] % (Auto) Lymph # (Auto) [place] # (Auto) Seg Neutrophils % Seg Neuts % (Manual) Lymphocytes % (Manual) Seg Neutrophils # Seg Neutrophils # Man Lymphocytes # (Manual) PT INR ABG pH ABG pO2 ABG HCO3 ABG O2 Saturation ABG Base Excess ABG Hemoglobin Oxyhemoglobin Sodium Potassium Chloride Carbon Dioxide Creatinine Glucose POC Glucose Calcium Phosphorus Magnesium Total Creatine Kinase CK-MB (CK-2) Rel Index Troponin T C-Reactive Protein Total Protein Albumin LDL Cholesterol Direct Urine WBC (Auto) 8.0 H 04/06/22 04/06/22 04/07/22 04:00 08:30 00:04 WBC RBC Hgb Hct MCV Plt Count Lymph % (Auto) [place] % (Auto) Lymph # (Auto) [place] # (Auto) Seg Neutrophils % Seg Neuts % (Manual) Lymphocytes % (Manual) Seg Neutrophils # Seg Neutrophils # Man Lymphocytes # (Manual) PT INR ABG pH ABG pO2 60.8 L ABG HCO3 30.5 H ABG O2 Saturation 93.3 L ABG Base Excess 4.9 H ABG Hemoglobin 12.4 L Oxyhemoglobin 92.1 L Sodium Potassium 3.0 L Chloride Carbon Dioxide Creatinine < 0.2 L Glucose 130 H POC Glucose 117 H Calcium 8.1 L Phosphorus Magnesium Total Creatine Kinase CK-MB (CK-2) Rel Index Troponin T C-Reactive Protein Total Protein Albumin LDL Cholesterol Direct Urine WBC (Auto) 04/07/22 04/07/22 04/07/22 03:51 03:51 03:51 WBC 14.6 H RBC 3.57 L Hgb 11.1 L Hct 33.2 L MCV Plt Count 118 L Lymph % (Auto) 4.3 L [place] % (Auto) 8.8 H Lymph # (Auto) 0.6 L [place] # (Auto) 1.3 H Seg Neutrophils % 86.6 H Seg Neuts % (Manual) Lymphocytes % (Manual) Seg Neutrophils # 12.7 H Seg Neutrophils # Man Lymphocytes # (Manual) PT 15.2 H INR ABG pH ABG pO2 ABG HCO3 ABG O2 Saturation ABG Base Excess ABG Hemoglobin Oxyhemoglobin Sodium 133 L Potassium Chloride 96.0 L Carbon Dioxide 31 H Creatinine 0.2 L Glucose 130 H POC Glucose Calcium 8.0 L Phosphorus Magnesium Total Creatine Kinase CK-MB (CK-2) Rel Index Troponin T C-Reactive Protein Total Protein Albumin LDL Cholesterol Direct Urine WBC (Auto) 04/07/22 04/07/22 04/08/22 04:25 09:10 04:49 WBC 16.1 H RBC 3.54 L Hgb 10.9 L Hct 33.3 L MCV Plt Count Lymph % (Auto) [place] % (Auto) Lymph # (Auto) [place] # (Auto) Seg Neutrophils % Seg Neuts % (Manual) Lymphocytes % (Manual) Seg Neutrophils # Seg Neutrophils # Man Lymphocytes # (Manual) PT INR ABG pH ABG pO2 71.0 L 63.4 L ABG HCO3 31.5 H 40.0 H ABG O2 Saturation 94.9 L ABG Base Excess 5.9 H 13.6 H ABG Hemoglobin 11.3 L 9.0 L Oxyhemoglobin 93.6 L Sodium Potassium Chloride Carbon Dioxide Creatinine Glucose POC Glucose Calcium Phosphorus Magnesium Total Creatine Kinase CK-MB (CK-2) Rel Index Troponin T C-Reactive Protein Total Protein Albumin LDL Cholesterol Direct Urine WBC (Auto) 04/08/22 04/08/22 04/08/22 04:49 09:53 10:25 WBC RBC Hgb Hct MCV Plt Count Lymph % (Auto) [place] % (Auto) Lymph # (Auto) [place] # (Auto) Seg Neutrophils % Seg Neuts % (Manual) Lymphocytes % (Manual) Seg Neutrophils # Seg Neutrophils # Man Lymphocytes # (Manual) PT INR ABG pH ABG pO2 ABG HCO3 34.7 H ABG O2 Saturation ABG Base Excess 7.9 H ABG Hemoglobin 11.0 L Oxyhemoglobin Sodium 136 L Potassium Chloride 97.7 L Carbon Dioxide 33 H Creatinine 0.2 L Glucose 155 H POC Glucose Calcium Phosphorus Magnesium Total Creatine Kinase CK-MB (CK-2) Rel Index Troponin T 0.030 H C-Reactive Protein Total Protein Albumin LDL Cholesterol Direct Urine WBC (Auto) 04/08/22 04/08/22 04/08/22 11:19 17:47 18:06 WBC RBC Hgb Hct MCV Plt Count Lymph % (Auto) [place] % (Auto) Lymph # (Auto) [place] # (Auto) Seg Neutrophils % Seg Neuts % (Manual) Lymphocytes % (Manual) Seg Neutrophils # Seg Neutrophils # Man Lymphocytes # (Manual) PT INR ABG pH ABG pO2 ABG HCO3 ABG O2 Saturation ABG Base Excess ABG Hemoglobin Oxyhemoglobin Sodium Potassium Chloride Carbon Dioxide Creatinine Glucose POC Glucose 121 H Calcium Phosphorus Magnesium Total Creatine Kinase 31 L 46 L CK-MB (CK-2) Rel Index 6.4 H 5.6 H Troponin T 0.030 H 0.031 H C-Reactive Protein Total Protein Albumin LDL Cholesterol Direct Urine WBC (Auto) 04/09/22 04/09/22 04/09/22 04:35 04:35 11:24 WBC 11.5 H RBC 3.16 L Hgb 9.9 L Hct 29.4 L MCV Plt Count 131 L Lymph % (Auto) [place] % (Auto) Lymph # (Auto) [place] # (Auto) Seg Neutrophils % Seg Neuts % (Manual) Lymphocytes % (Manual) Seg Neutrophils # Seg Neutrophils # Man Lymphocytes # (Manual) PT INR ABG pH ABG pO2 ABG HCO3 ABG O2 Saturation ABG Base Excess ABG Hemoglobin Oxyhemoglobin Sodium Potassium Chloride 97.1 L Carbon Dioxide 35 H Creatinine < 0.2 L Glucose 145 H POC Glucose 147 H Calcium Phosphorus Magnesium Total Creatine Kinase CK-MB (CK-2) Rel Index Troponin T C-Reactive Protein Total Protein Albumin LDL Cholesterol Direct Urine WBC (Auto) 04/09/22 04/09/22 04/09/22 13:00 17:32 23:48 WBC RBC Hgb Hct MCV Plt Count Lymph % (Auto) [place] % (Auto) Lymph # (Auto) [place] # (Auto) Seg Neutrophils % Seg Neuts % (Manual) Lymphocytes % (Manual) Seg Neutrophils # Seg Neutrophils # Man Lymphocytes # (Manual) PT INR ABG pH ABG pO2 66.6 L ABG HCO3 38.2 H ABG O2 Saturation 94.4 L ABG Base Excess 10.7 H ABG Hemoglobin 10.7 L Oxyhemoglobin 92.8 L Sodium Potassium Chloride Carbon Dioxide Creatinine Glucose POC Glucose 143 H 114 H Calcium Phosphorus Magnesium Total Creatine Kinase CK-MB (CK-2) Rel Index Troponin T C-Reactive Protein Total Protein Albumin LDL Cholesterol Direct Urine WBC (Auto) 04/10/22 04/10/22 04/10/22 04:48 04:48 05:34 WBC RBC 2.91 L Hgb 9.1 L Hct 27.7 L MCV 95 H Plt Count Lymph % (Auto) [place] % (Auto) Lymph # (Auto) [place] # (Auto) Seg Neutrophils % Seg Neuts % (Manual) Lymphocytes % (Manual) Seg Neutrophils # Seg Neutrophils # Man Lymphocytes # (Manual) PT INR ABG pH ABG pO2 ABG HCO3 ABG O2 Saturation ABG Base Excess ABG Hemoglobin Oxyhemoglobin Sodium Potassium Chloride 95.7 L Carbon Dioxide 38 H Creatinine < 0.2 L Glucose 118 H POC Glucose 127 H Calcium Phosphorus Magnesium Total Creatine Kinase CK-MB (CK-2) Rel Index Troponin T C-Reactive Protein Total Protein Albumin LDL Cholesterol Direct Urine WBC (Auto) 04/10/22 04/11/22 04/11/22 23:10 04:15 04:15 WBC 17.2 H RBC 2.98 L Hgb 9.2 L Hct 27.9 L MCV Plt Count Lymph % (Auto) [place] % (Auto) Lymph # (Auto) [place] # (Auto) Seg Neutrophils % Seg Neuts % (Manual) Lymphocytes % (Manual) Seg Neutrophils # Seg Neutrophils # Man Lymphocytes # (Manual) PT INR ABG pH ABG pO2 ABG HCO3 ABG O2 Saturation ABG Base Excess ABG Hemoglobin Oxyhemoglobin Sodium Potassium Chloride 96.1 L Carbon Dioxide 35 H Creatinine < 0.2 L Glucose 138 H POC Glucose 106 H Calcium 8.3 L Phosphorus Magnesium Total Creatine Kinase CK-MB (CK-2) Rel Index Troponin T C-Reactive Protein Total Protein Albumin LDL Cholesterol Direct Urine WBC (Auto) 04/11/22 04/11/22 04/11/22 05:31 13:18 16:20 WBC RBC Hgb Hct MCV Plt Count Lymph % (Auto) [place] % (Auto) Lymph # (Auto) [place] # (Auto) Seg Neutrophils % Seg Neuts % (Manual) Lymphocytes % (Manual) Seg Neutrophils # Seg Neutrophils # Man Lymphocytes # (Manual) PT INR ABG pH ABG pO2 57.8 L ABG HCO3 40.5 H ABG O2 Saturation 90.6 L ABG Base Excess 12.6 H ABG Hemoglobin 10.5 L Oxyhemoglobin 89.0 L Sodium Potassium Chloride Carbon Dioxide Creatinine Glucose POC Glucose 129 H 132 H Calcium Phosphorus Magnesium Total Creatine Kinase CK-MB (CK-2) Rel Index Troponin T C-Reactive Protein Total Protein Albumin LDL Cholesterol Direct Urine WBC (Auto) 04/11/22 04/11/22 04/12/22 17:29 23:17 04:00 WBC 17.4 H RBC 2.96 L Hgb 9.0 L Hct 28.0 L MCV 95 H Plt Count Lymph % (Auto) [place] % (Auto) Lymph # (Auto) [place] # (Auto) Seg Neutrophils % Seg Neuts % (Manual) Lymphocytes % (Manual) Seg Neutrophils # Seg Neutrophils # Man Lymphocytes # (Manual) PT INR ABG pH ABG pO2 ABG HCO3 ABG O2 Saturation ABG Base Excess ABG Hemoglobin Oxyhemoglobin Sodium Potassium Chloride Carbon Dioxide Creatinine Glucose POC Glucose 125 H 151 H Calcium Phosphorus Magnesium Total Creatine Kinase CK-MB (CK-2) Rel Index Troponin T C-Reactive Protein Total Protein Albumin LDL Cholesterol Direct Urine WBC (Auto) 04/12/22 04/12/22 04/12/22 04:00 17:03 23:39 WBC RBC Hgb Hct MCV Plt Count Lymph % (Auto) [place] % (Auto) Lymph # (Auto) [place] # (Auto) Seg Neutrophils % Seg Neuts % (Manual) Lymphocytes % (Manual) Seg Neutrophils # Seg Neutrophils # Man Lymphocytes # (Manual) PT INR ABG pH ABG pO2 ABG HCO3 ABG O2 Saturation ABG Base Excess ABG Hemoglobin Oxyhemoglobin Sodium Potassium Chloride 97.4 L Carbon Dioxide 37 H Creatinine < 0.2 L Glucose 127 H POC Glucose 106 H 107 H Calcium Phosphorus Magnesium Total Creatine Kinase CK-MB (CK-2) Rel Index Troponin T C-Reactive Protein Total Protein Albumin LDL Cholesterol Direct Urine WBC (Auto) 04/13/22 04/13/22 04/13/22 04:30 04:30 17:39 WBC 14.1 H RBC 2.66 L Hgb 8.4 L Hct 25.5 L MCV 96 H Plt Count Lymph % (Auto) [place] % (Auto) Lymph # (Auto) [place] # (Auto) Seg Neutrophils % Seg Neuts % (Manual) Lymphocytes % (Manual) Seg Neutrophils # Seg Neutrophils # Man Lymphocytes # (Manual) PT INR ABG pH ABG pO2 ABG HCO3 ABG O2 Saturation ABG Base Excess ABG Hemoglobin Oxyhemoglobin Sodium Potassium Chloride 93.9 L Carbon Dioxide 39 H Creatinine < 0.2 L Glucose POC Glucose 134 H Calcium Phosphorus 1.90 L Magnesium Total Creatine Kinase CK-MB (CK-2) Rel Index Troponin T C-Reactive Protein Total Protein Albumin LDL Cholesterol Direct Urine WBC (Auto) 04/14/22 04/14/22 04/14/22 05:03 05:03 09:10 WBC 15.6 H RBC 3.02 L Hgb 9.3 L Hct 28.8 L MCV 95 H Plt Count Lymph % (Auto) [place] % (Auto) Lymph # (Auto) [place] # (Auto) Seg Neutrophils % Seg Neuts % (Manual) Lymphocytes % (Manual) Seg Neutrophils # Seg Neutrophils # Man Lymphocytes # (Manual) PT INR ABG pH ABG pO2 66.9 L ABG HCO3 44.5 H ABG O2 Saturation ABG Base Excess 17.2 H ABG Hemoglobin 8.1 L Oxyhemoglobin 94.8 L Sodium Potassium Chloride 93.8 L Carbon Dioxide 42 H* Creatinine < 0.2 L Glucose 117 H POC Glucose Calcium Phosphorus Magnesium Total Creatine Kinase CK-MB (CK-2) Rel Index Troponin T C-Reactive Protein Total Protein Albumin LDL Cholesterol Direct Urine WBC (Auto) 04/15/22 04/15/22 04/16/22 04:44 04:44 04:16 WBC 13.0 H 12.6 H RBC 3.19 L 3.09 L Hgb 9.6 L 9.5 L Hct 30.2 L 29.1 L MCV 95 H Plt Count 456 H Lymph % (Auto) [place] % (Auto) Lymph # (Auto) [place] # (Auto) Seg Neutrophils % Seg Neuts % (Manual) Lymphocytes % (Manual) Seg Neutrophils # Seg Neutrophils # Man Lymphocytes # (Manual) PT INR ABG pH ABG pO2 ABG HCO3 ABG O2 Saturation ABG Base Excess ABG Hemoglobin Oxyhemoglobin Sodium Potassium Chloride 95.5 L Carbon Dioxide 37 H Creatinine < 0.2 L Glucose POC Glucose Calcium Phosphorus Magnesium Total Creatine Kinase CK-MB (CK-2) Rel Index Troponin T C-Reactive Protein Total Protein Albumin LDL Cholesterol Direct Urine WBC (Auto) 04/16/22 04/16/22 04/16/22 04:16 05:00 14:00 WBC RBC Hgb Hct MCV Plt Count Lymph % (Auto) [place] % (Auto) Lymph # (Auto) [place] # (Auto) Seg Neutrophils % Seg Neuts % (Manual) Lymphocytes % (Manual) Seg Neutrophils # Seg Neutrophils # Man Lymphocytes # (Manual) PT INR ABG pH 7.324 L ABG pO2 55.6 L ABG HCO3 45.3 H ABG O2 Saturation 87.1 L ABG Base Excess 16.6 H ABG Hemoglobin 8.6 L Oxyhemoglobin 85.7 L Sodium Potassium Chloride 97.6 L Carbon Dioxide 36 H Creatinine < 0.2 L Glucose 109 H POC Glucose 120 H Calcium Phosphorus Magnesium Total Creatine Kinase CK-MB (CK-2) Rel Index Troponin T C-Reactive Protein Total Protein Albumin LDL Cholesterol Direct Urine WBC (Auto) 04/17/22 04/17/22 04/17/22 04:36 04:36 04:57 WBC 14.4 H RBC 3.08 L Hgb 9.4 L Hct 29.0 L MCV Plt Count Lymph % (Auto) [place] % (Auto) Lymph # (Auto) [place] # (Auto) Seg Neutrophils % Seg Neuts % (Manual) Lymphocytes % (Manual) Seg Neutrophils # Seg Neutrophils # Man Lymphocytes # (Manual) PT INR ABG pH ABG pO2 ABG HCO3 ABG O2 Saturation ABG Base Excess ABG Hemoglobin Oxyhemoglobin Sodium Potassium Chloride 95.9 L Carbon Dioxide 39 H Creatinine < 0.2 L Glucose 140 H POC Glucose 137 H Calcium 8.3 L Phosphorus Magnesium Total Creatine Kinase CK-MB (CK-2) Rel Index Troponin T C-Reactive Protein Total Protein Albumin LDL Cholesterol Direct Urine WBC (Auto) 04/17/22 09:15 WBC RBC Hgb Hct MCV Plt Count Lymph % (Auto) [place] % (Auto) Lymph # (Auto) [place] # (Auto) Seg Neutrophils % Seg Neuts % (Manual) Lymphocytes % (Manual) Seg Neutrophils # Seg Neutrophils # Man Lymphocytes # (Manual) PT INR ABG pH 7.345 L ABG pO2 ABG HCO3 48.2 H ABG O2 Saturation ABG Base Excess 19.2 H ABG Hemoglobin 9.7 L Oxyhemoglobin Sodium Potassium Chloride Carbon Dioxide Creatinine Glucose POC Glucose Calcium Phosphorus Magnesium Total Creatine Kinase CK-MB (CK-2) Rel Index Troponin T C-Reactive Protein Total Protein Albumin LDL Cholesterol Direct Urine WBC (Auto) Allied health notes reviewed: RT
[2022-04-17] MEDS: SENNOSIDES ORAL LIQD 8.8 MG/5 ML ORAL LIQD PO SCH ×2 (11:02→21:41)
[2022-04-17] MEDS: DOCUSATE SODIUM 100 MG/10 ML ORAL LIQD PO SCH ×2 (11:02→21:41)
[2022-04-17] MEDS: FAMOTIDINE 20 MG TAB FEEDTUBE SCH ×2 (11:03→21:46)
[2022-04-17] MEDS: POLYETHYLENE GLYCOL 3350 17 GM POWDER PO SCH (11:03)
--- NOTE | 2022-04-17 11:33 | Progress Note ---
<ALEK SMITH - Last Filed: 04/17/22 16:22> Assessment and Plan Assessment and plan: This is a 57-year-old male with known history of ALS, recently hospitalized at [facility] admitted for acute hypoxemic respiratory failure 2/2 pneumonia Hospital Course to Date: 04/03: Intubated and Sedated on versed gtt, RASS-5. CT head/brain noted with no acute intracranial abnormality. Plan to initiated precededx gtt and wean off versed for a RASS goal of 0 to -2. CT chect also reviewed, findings are most consistent with acute bronchopneumonia. Continue empiric IV Abx, vent adjustment per CCM. ID consulted. Continue to F/U on cultures. Titrate pressor for MAP above 65. Medical records requested from [facility]. 04/04: Remains stable on the vent, easily arousable on precedex gtt, not following commands. Plan for SAT/SBT today. PRN analgesia for CPOT greater than 3. Fevers improved, cultures and procal pending. Continue current IV abx, ID also consulted. Remains on low dose pressors, titrate pressors for a MAP above 65. 04/05: Long discussion with family with use of translation phone with CCM regarding goals of care. Family to have meeting amongst themselves and informed care team of decisions. Fentanyl drip added for respiratory distress. Remains on Precedex drip. Antibiotics per ID. Given 2L NS bolus with levophed gtt 04/06: Family discussion with Dr. Grayson for goals of care. CXR shows possible mucus plug, continue CPT as FiO2 is being able to be weaned. Potassium repleted. Weaning fentnyl gtt. 04/07: Ultrasound guided thoracentesis today scheduled, inadequate amount of pleural effusion on so not completed. Patient was started on Levophed overnight which was weaned off this morning however had to be started twice a day. Remains on fentanyl and Precedex. Cardiology discontinued BB and ACEi in setting of hypotension. 04/08: COVID-19 PCR negative. Routine EEG ordered by cardiology which showed ST changes, cardiology aware. They will continue conservative treatment. Repeat troponins 0.030 which are less than admit of 0.048. Dr. Grayson had a long discu ssion with with the use of manager respiratory care today at bedside and has not made a decision regarding goals of care. Possible consult to surgery for trach/PEG early next week. Continues to require Precedex and fentanyl drip for sedation. Carvedilol/lisinopril discontinued as patient is continuously on Levophed. 04/09: No acute events reported overnight, remains on fentanyl, Precedex and Levophed drips. Dr. Grayson and Dr. Pineda updated family at bedside extensively today. Consulted surgery for trach/PEG. COVID-19 PCR negative. 04/10: Patient noted to have desaturation episodes, FiO2 increased slightly to 35%. Will add Mucomyst. Remains on fentanyl and Precedex. Off of Levophed. Surgery consulted for trach/PEG. 04/11: FiO2 increased over night likely related to hypoxia, continues on fent gtt, weaning precedex gtt as he is also on Seroquel. Will d/w CCM re scheduled or prn oxycodone 04/12: Periods of hypoxia and tachycardia this am. Symptoms improved post deep suction and tracheal lavage, Repeat CXR noted with no significant change. Continue CPT and mucomyst. Plan for possible trach/PEG tomorrow by general surgery. 04/13: Remains stable on the vent. Patient is wake and tracking but does not follow simple commands. No report of hypoxia from overnight, continue CPT and mucomyst. Plan for track and PEG today by General Surgery. Plan for LTAC placement post procedure, case management to arrange. 04/14: VIRGILIO overnight, Trach and PEG postponed for today by general surgery. Plan for LTAC placement post procedure, case management to arrange. 04/15: S/p Trach and PEG. Up to 80% FiO2 this am, this am CXR noted suggesting possible mucus plug. D/W [facility] plan for bronch today. Continue CPT and mucomyst. Plan of care thoroughly discussed with patient's and son (who translated for ) at the bedside. Per , stars analytical lead had already discussed the risks and benefits of the procedure yesterday. She verbalized understanding and agreed with procedure and current care plan, consent signed. Okay to use PEG-tube for meds this am, resume TF once okay by general Surgery. Case management to arrange LTAC placement. 04/16: s/p Bronchocopy by [facility]. FiO2 down to 60%, angela 10 this am. This am CXR with moderate improvement. Continue CPT and mucomyst, wean Fio2 as tolerated for SPO2 above 92%. Patient is tolerating TF, advance to goal as ordered. Possible LTAC placement, case management to arrange. 04/17: VIRGILIO overnight. remains stable on the vent, recent CXR and this am ABG n oted. Continue CPT and mucomyst, wean Fio2 as tolerated. Assessment and Plan #Acute Hypoxemic Respiratory Failure 2/ #Acute Bronchopneumonia - Intubated in the ED on 04/02 for hypoxemia and airway protection - 04/14 s/p Trach and PEG - 04/15 CXR reviewed complete opacity of the righ side suggesting possible mucus plug. See report for detail - 04/15 s/p Bronchoscopy by [facility] - Vent setting: PRVC-60%,10,14,400 - Repeat CXR this am with moderate improvement - This am ABG noted - CCM consulted, appreciate recommendations - Continue IV abx per ID, CPT and mucomyst per [facility] - VAP bundle addressed - Aspiration precaution HOB above 30 - PRN ABG and CXR per [facility] - Continue SPO2 monitoring for SPO2 goal above 92% #Sepsis #Acute Bronchopneumonia #HCAP #Leukocytosis - CXR shows moderate to large layering effusion on the right, see report for f ull detail - CT chest also reviewed, findings are most consistent with acute bronchopneumonia. See report for full detail - Patient was recent hospitalized for pneumonia - Patient remains afebrile - Tracheal aspirate with Pseudomonas aeruginosa, Enterobacter aerogenes - 04/02 blood culture with bacillus species, 04/05 blood culture NGTD - CRP 31.6, procalcitonin 0.08 - MRSA negative - ID on consulted, appreciate recommendations - Continue IV Abx Cefepine per ID - Continue to F/U on cultures - Daily CBC monitor #Hypotension 2/2 sepsis-resolved #Suspect ischemic coronary artery disease #h/o cardiomyopathy - Low BP probably due to hypovolemia vs sedation vs infectious process - s/p Levophed gtt - Elevated troponin possibly a type II troponin leak - Cardiology consulted, appreciated recommendations - Echocardiogram shows ejection fraction of 40 to 45%, mild global hypokinesis of left ventricle - Continue BB - Continue blood pressure monitor per protocol - Maintain MAP above 65 - On heparin SubQ #Hypernatremia-resolved - Monitor and replace electrolytes as needed - Continue to trend BMP #Acute Metabolic Encephalopathy #H/o Amyotrophic Lateral Sclerosis #Nonverbal at Baseline - Presented with AMS, per family patient is nonverbal at baseline but responsive - CT head/Brain with no acute intracranial process - Off sedation. Awake and calm - Hold sedation for now - Continue Seroquel per CCM - Avoid benzodiazepine to reduce the possibility of delirium - PRN analgesia for CPOT greater than 3 - Maintenance of sleep-wake cycle #Thrombocytopenia-resolved - Continue to trend plt - On heparin subQ - Monitor for s/s of any active bleeding #Protein Caloric Malnutrition - Albumin 2.7, Total protein 4.6 - 04/15 s/p EPG-Tube placement - Continue enteral nutrition - Nutrition consulted #Constipation - Noted on CXR and KUB - last BM 04/15 - Continue BR #GI/DVT Prophylaxis - PPI- Pepcid - Heparin SubQ - SCDs to bilateral lower extremities while in bed #Advance Care Planning - Disease education data, care plan, diagnoses, and prognosis were discussed patient's , Carly Lopez, and patient daughter, Kaylee Warren, who translated for #[phone]. They reported that patient was following at [facility] for his ALS and during recent hospitalization at [facility] they were told nothing else can be offered to patient at this time and patient was discharge home with home hospice and PO morphine. First hospice visit was on , however, patient became unresponsive yesterday and they brought in to the hospital. - Goal of care and code status were also addressed at that time. Family wants to wait for a couple days to see how patient respond to current treatment before making a decision. All questions and concerns were addressed at this time. Patient family acknowledged understanding and agreement with care plan. - Patient remains a FULL CODE status -04/05: Discussion at bedside with interpreting service with Dr. Valdivia and family state they would discuss next steps amongst themselves and let healthcare team know of decisions -04/06: extensive discussion with family ( and son) with Dr. Grayson regarding goals of care -04/08: Extensive discussion with with the use of manager respiratory care line regarding goals of care; no decision made. Possible consult to surgery for trach/PEG early next week. -04/09: Discussion with and her sister with Dr. Grayson and then with Dr. Pineda-> Consulted surgery for trach/peg -Plan LTAC placement, case management to arrange. The high probability of a clinically significant, sudden or life threatening deterioration of the [multiple] system(s) required my full and direct attention, intervention and personal management. The aggregate critical care time was [60] minutes. This time is in addition to time spent performing reported procedures but includes the following: [x] Data Review and interpretation [x] Patient assessment and monitoring of vital signs [x] Documentation [x] Medication orders and management Disposition Plan: ICU Total Time Spent with Patient (Minutes): 60 History Interval history: Patient seen and examined at the bedside. Stable on the vent, awake and trackin g. VSS, tolerating TF. VIRGILIO overnight Hospitalist Physical - Physical exam Narrative exam: General appearance: Present: no acute distress, cachectic, other (Trach and on the vent.Awake and tracking) - EENT Eyes: Present: PERRL - Neck Neck: Present: normal ROM - Respiratory Respiratory effort: normal Respiratory: bilateral: rhonchi - Cardiovascular Rhythm: regular Heart Sounds: Present: S1 & S2 - Extremities Extremities: no ischemia, pulses intact, pulses symmetrical Peripheral Pulses: within normal limits - Abdominal General gastrointestinal: soft, non-distended, normal bowel sounds - Integumentary Integumentary: Present: warm, dry - Psychiatric Psychiatric: other (Trach and on the vent. Awake and tracking, off sedations. Not following commands, probably due to language barrier) - Neurologic Neurologic: other (Trach and on the vent. Awake and tracking, off sedations. Not following commands, probably due to language barrier) - Allied Health Allied health notes reviewed: nursing, case management - Constitutional Vitals: Temp Pulse Resp BP Pulse Ox 99.4 F 109 H 18 131/79 97 04/17/22 03:34 04/17/22 11:05 04/17/22 09:00 04/17/22 11:05 04/17/22 09:00 HEART Score - HEART Score Troponin: Troponin T 0.031 ng/mL (0.00-0.029) H 04/08/22 17:47 Results - Labs CBC & Chem 7: 04/17/22 04:36 04/17/22 04:36 Labs: Laboratory Last Values WBC 14.4 K/mm3 (4.5-11.0) H 04/17/22 04:36 RBC 3.08 M/mm3 (3.65-5.03) L 04/17/22 04:36 Hgb 9.4 gm/dl (11.8-15.2) L 04/17/22 04:36 Hct 29.0 % (35.5-45.6) L 04/17/22 04:36 MCV 94 fl (84-94) 04/17/22 04:36 MCH 31 pg (28-32) 04/17/22 04:36 MCHC 32 % (32-34) 04/17/22 04:36 RDW 13.7 % (13.2-15.2) 04/17/22 04:36 Plt Count 337 K/mm3 (140-440) 04/17/22 04:36 Lymph % (Auto) 4.3 % (13.4-35.0) L 04/07/22 03:51 [place] % (Auto) 8.8 % (0.0-7.3) H 04/07/22 03:51 Eos % (Auto) 0.1 % (0.0-4.3) 04/07/22 03:51 Baso % (Auto) 0.2 % (0.0-1.8) 04/07/22 03:51 Lymph # (Auto) 0.6 K/mm3 (1.2-5.4) L 04/07/22 03:51 [place] # (Auto) 1.3 K/mm3 (0.0-0.8) H 04/07/22 03:51 Eos # (Auto) 0.0 K/mm3 (0.0-0.4) 04/07/22 03:51 Baso # (Auto) 0.0 K/mm3 (0.0-0.1) 04/07/22 03:51 Add Manual Diff Complete 04/02/22 19:39 Total Counted 100 04/02/22 19:39 Seg Neutrophils % 86.6 % (40.0-70.0) H 04/07/22 03:51 Seg Neuts % (Manual) 94.0 % (40.0-70.0) H 04/02/22 19:39 Band Neutrophils % 0 % 04/02/22 19:39 Lymphocytes % (Manual) 1.0 % (13.4-35.0) L 04/02/22 19:39 Reactive Lymphs % (Man) 0 % 04/02/22 19:39 Monocytes % (Manual) 5.0 % (0.0-7.3) 04/02/22 19:39 Eosinophils % (Manual) 0 % (0.0-4.3) 04/02/22 19:39 Basophils % (Manual) 0 % (0.0-1.8) 04/02/22 19:39 Metamyelocytes % 0 % 04/02/22 19:39 Myelocytes % 0 % 04/02/22 19:39 Promyelocytes % 0 % 04/02/22 19:39 Blast Cells % 0 % 04/02/22 19:39 Nucleated RBC % Not Reportable 04/02/22 19:39 Seg Neutrophils # 12.7 K/mm3 (1.8-7.7) H 04/07/22 03:51 Seg Neutrophils # Man 13.4 K/mm3 (1.8-7.7) H 04/02/22 19:39 Band Neutrophils # 0.0 K/mm3 04/02/22 19:39 Lymphocytes # (Manual) 0.1 K/mm3 (1.2-5.4) L 04/02/22 19:39 Abs React Lymphs (Man) 0.0 K/mm3 04/02/22 19:39 Monocytes # (Manual) 0.7 K/mm3 (0.0-0.8) 04/02/22 19:39 Eosinophils # (Manual) 0.0 K/mm3 (0.0-0.4) 04/02/22 19:39 Basophils # (Manual) 0.0 K/mm3 (0.0-0.1) 04/02/22 19:39 Metamyelocytes # 0.0 K/mm3 04/02/22 19:39 Myelocytes # 0.0 K/mm3 04/02/22 19:39 Promyelocytes # 0.0 K/mm3 04/02/22 19:39 Blast Cells # 0.0 K/mm3 04/02/22 19:39 WBC Morphology Not Reportable 04/02/22 19:39 Hypersegmented Neuts Not Reportable 04/02/22 19:39 Hyposegmented Neuts Not Reportable 04/02/22 19:39 Hypogranular Neuts Not Reportable 04/02/22 19:39 Smudge Cells Not Reportable 04/02/22 19:39 Toxic Granulation Not Reportable 04/02/22 19:39 Toxic Vacuolation Not Reportable 04/02/22 19:39 Dohle Bodies Not Reportable 04/02/22 19:39 Pelger-Huet Anomaly Not Reportable 04/02/22 19:39 Terry Rods Not Reportable 04/02/22 19:39 Platelet Estimate Consistent w auto 04/02/22 19:39 Clumped Platelets Not Reportable 04/02/22 19:39 Plt Clumps, EDTA Not Reportable 04/02/22 19:39 Large Platelets Not Reportable 04/02/22 19:39 Giant Platelets Not Reportable 04/02/22 19:39 Platelet Satelliting Not Reportable 04/02/22 19:39 Plt Morphology Comment Not Reportable 04/02/22 19:39 RBC Morphology Not Reportable 04/02/22 19:39 Dimorphic RBCs Not Reportable 04/02/22 19:39 Polychromasia Not Reportable 04/02/22 19:39 Hypochromasia Not Reportable 04/02/22 19:39 Poikilocytosis Not Reportable 04/02/22 19:39 Anisocytosis 1+ 04/02/22 19:39 Microcytosis Not Reportable 04/02/22 19:39 Macrocytosis Not Reportable 04/02/22 19:39 Spherocytes Not Reportable 04/02/22 19:39 Pappenheimer Bodies Not Reportable 04/02/22 19:39 Sickle Cells Not Reportable 04/02/22 19:39 Target Cells Not Reportable 04/02/22 19:39 Tear Drop Cells Not Reportable 04/02/22 19:39 Ovalocytes Not Reportable 04/02/22 19:39 Helmet Cells Not Reportable 04/02/22 19:39 Patricio-Otis Bodies Not Reportable 04/02/22 19:39 [place] Rings Not Reportable 04/02/22 19:39 [place] Cells Not Reportable 04/02/22 19:39 Bite Cells Not Reportable 04/02/22 19:39 Crenated Cell Not Reportable 04/02/22 19:39 Elliptocytes Not Reportable 04/02/22 19:39 Acanthocytes (Spur) Not Reportable 04/02/22 19:39 Rouleaux Not Reportable 04/02/22 19:39 Hemoglobin C Crystals Not Reportable 04/02/22 19:39 Schistocytes Not Reportable 04/02/22 19:39 Malaria parasites Not Reportable 04/02/22 19:39 [place] Bodies Not Reportable 04/02/22 19:39 Hem Pathologist Commnt No 04/02/22 19:39 PT 13.6 Sec. (12.2-14.9) 04/13/22 04:30 INR 0.94 (0.87-1.13) 04/13/22 04:30 APTT 35.7 Sec. (24.2-36.6) 04/07/22 03:51 ABG pH 7.345 pH Units (7.350-7.450) L 04/17/22 09:15 ABG pCO2 90.3 mm Hg 04/17/22 09:15 ABG pO2 81.4 mm Hg (80.0-90.0) 04/17/22 09:15 ABG HCO3 48.2 mmol/L (20.0-26.0) H 04/17/22 09:15 ABG O2 Saturation 97.4 % (95.0-99.0) 04/17/22 09:15 ABG O2 Content 13.1 (0.0-44) 04/17/22 09:15 ABG Base Excess 19.2 mmol/L (-2.0-3.0) H 04/17/22 09:15 ABG Hemoglobin 9.7 gm/dl (14.0-18.0) L 04/17/22 09:15 ABG Carboxyhemoglobin 1.1 % (0.0-5.0) 04/17/22 09:15 ABG Methemoglobin 0.3 % (0.0-1.5) 04/17/22 09:15 Oxyhemoglobin 95.9 % (95.0-99.0) 04/17/22 09:15 FiO2 60 % 04/17/22 09:15 Sodium 144 mmol/L (137-145) 04/17/22 04:36 Potassium 3.9 mmol/L (3.6-5.0) 04/17/22 04:36 Chloride 95.9 mmol/L (98-107) L 04/17/22 04:36 Carbon Dioxide 39 mmol/L (22-30) H 04/17/22 04:36 Anion Gap 13 mmol/L 04/17/22 04:36 BUN 15 mg/dL (9-20) 04/17/22 04:36 Creatinine < 0.2 mg/dL (0.8-1.3) L 04/17/22 04:36 Estimated GFR > 60 ml/min 04/17/22 04:36 BUN/Creatinine Ratio 75 % 04/17/22 04:36 Glucose 140 mg/dL (75-100) H 04/17/22 04:36 POC Glucose 137 mg/dL (70-105) H 04/17/22 04:57 Lactic Acid 1.90 mmol/L (0.7-2.0) 04/02/22 19:39 Calcium 8.3 mg/dL (8.4-10.2) L 04/17/22 04:36 Phosphorus 2.50 mg/dL (2.5-4.5) 04/17/22 04:36 Magnesium 2.10 mg/dL (1.7-2.3) 04/17/22 04:36 Total Bilirubin 0.80 mg/dL (0.1-1.2) 04/02/22 19:39 AST 15 units/L (5-40) 04/02/22 19:39 ALT 9 units/L (7-56) 04/02/22 19:39 Alkaline Phosphatase 43 units/L (35-129) 04/02/22 19:39 Total Creatine Kinase 46 units/L (55-170) L 04/08/22 17:47 CK-MB (CK-2) 2.6 ng/mL (0.0-4.0) 04/08/22 17:47 CK-MB (CK-2) Rel Index 5.6 (0-4) H 04/08/22 17:47 Troponin T 0.031 ng/mL (0.00-0.029) H 04/08/22 17:47 C-Reactive Protein 31.60 mg/dL (0.00-1.30) H 04/04/22 04:18 Total Protein 4.6 g/dL (6.3-8.2) L 04/02/22 19:39 Albumin 2.7 g/dL (3.9-5) L 04/02/22 19:39 Albumin/Globulin Ratio 1.4 % 04/02/22 19:39 Triglycerides 80 mg/dL (2-149) 04/02/22 19:39 Cholesterol 94 mg/dL (50-199) 04/02/22 19:39 LDL Cholesterol Direct 27 mg/dL (50-130) L 04/02/22 19:39 HDL Cholesterol 47 mg/dL (40-59) 04/02/22 19:39 Cholesterol/HDL Ratio 2.00 % 04/02/22 19:39 Procalcitonin 0.08 ng/mL (<0.15) 04/04/22 04:18 Urine Color Aracely (Yellow) 04/05/22 17:45 Urine Turbidity Cloudy (Clear) 04/05/22 17:45 Urine pH 5.0 (5.0-7.0) 04/05/22 17:45 Ur Specific [place] 1.021 (1.003-1.030) 04/05/22 17:45 Urine Protein 30 mg/dl mg/dL (Negative) 04/05/22 17:45 Urine Glucose (UA) Neg mg/dL (Negative) 04/05/22 17:45 Urine Ketones Tr mg/dL (Negative) 04/05/22 17:45 Urine Blood Sm (Negative) 04/05/22 17:45 Urine Nitrite Neg (Negative) 04/05/22 17:45 Urine Bilirubin Neg (Negative) 04/05/22 17:45 Urine Urobilinogen < 2.0 mg/dL (<2.0) 04/05/22 17:45 Ur Leukocyte Esterase Tr (Negative) 04/05/22 17:45 Urine WBC (Auto) 8.0 /HPF (0.0-6.0) H 04/05/22 17:45 Urine RBC (Auto) 3.0 /HPF (0.0-6.0) 04/05/22 17:45 U Epithel Cells (Auto) 2.0 /HPF (0-13.0) 04/05/22 17:45 Urine Bacteria (Auto) 1+ /HPF (Negative) 04/02/22 Unknown Hyaline Casts 1 /LPF 04/05/22 17:45 Urine Mucus 3+ /HPF 04/05/22 17:45 Nasal Screen MRSA (PCR) Negative (Negative) 04/05/22 12:37 Vancomycin Trough 6.0 ug/mL (5.0-20.0) 04/05/22 18:53 Coronavirus (PCR) Negative (Negative) 04/07/22 14:52 Microbiology: Microbiology 04/15/22 17:57 Bronchial Washings - Right Middle Lobe Respiratory Culture - Preliminary Perez/IV: Voiding Method Condom Catheter Active Medications - Current Medications Current Medications: Generic Name Dose Route Start Last Admin Trade Name Freq PRN Reason Stop Dose Admin Acetaminophen 650 mg 04/02/22 23:53 04/16/22 12:16 Acetaminophen 325 Mg Tab PO 650 mg Q6H PRN Administration Pain MILD(1-3)/Fever >100.5/FAITH Acetylcysteine 200 mg 04/15/22 10:00 04/17/22 09:00 Acetylcysteine 10% 100 Mg/1 Ml *For Inhalation Use* INHALATION 200 mg Q8HRT SEGUNDO Administration Albuterol 2.5 mg 04/06/22 16:00 04/17/22 09:00 Albuterol 2.5 Mg/3 Ml Nebu IH 2.5 mg Q8HRT SEGUNDO Administration Bisacodyl 10 mg 04/07/22 09:44 04/12/22 10:06 Bisacodyl 10 Mg Rect Supp VA 10 mg QDAY PRN Administration Constipation Dextrose 50 ml 04/06/22 17:54 Dextrose 50% In Water (25gm) 50 Ml Syringe IV Q30MIN PRN Hypoglycemia Protocol Docusate Sodium 100 mg 04/03/22 15:00 04/17/22 11:02 Docusate Sodium 100 Mg/10 Ml Oral Liqd PO 100 mg BID SEGUNDO Administration Famotidine 20 mg 04/06/22 10:00 04/17/22 11:03 Famotidine 20 Mg Tab FEEDTUBE 20 mg BID SEGUNDO Administration Fentanyl 50 mcg 04/04/22 15:56 04/16/22 13:31 Fentanyl 100 Mcg/2 Ml Inj IV 50 mcg Q2HR PRN Administration For CPOT of greater than 3 Fentanyl 100 mcg 04/15/22 18:00 04/15/22 17:12 Fentanyl 100 Mcg/2 Ml Inj IV 100 mcg ONCE SEGUNDO Administration Heparin Sodium (Porcine) 5,000 unit 04/03/22 06:00 04/17/22 05:23 Heparin 5,000 Unit/1 Ml Vial SUB-Q 5,000 unit Q8HR SEGUNDO Administration Dexmedetomidine HCl 400 mcg/ 104 mls @ 2.434 mls/hr 04/03/22 07:00 04/14/22 14:55 Sodium Chloride IV 0 mcg/kg/hr TITRATE SEGUNDO 0 mls/hr Titration Protocol 0.2 MCG/KG/HR Cefepime HCl 1 gm in 100 mls @ 200 mls/hr 04/15/22 21:00 04/17/22 06:19 Cefepime/Ns 1 Gm/100 Ml IV 04/19/22 20:59 200 mls/hr Q8H SEGUNDO Administration Protocol Sodium Chloride 250 mls @ 999 mls/hr 04/15/22 17:50 Nacl 0.9% 250ml IV ONCE SEGUNDO Insulin Human Regular 0 units 04/06/22 18:00 04/17/22 10:55 Insulin Regular, Human 100 Units/1 Ml SUB-Q Not Given Q6H [facility] Protocol Magnesium Hydroxide 30 ml 04/02/22 23:53 Magnesium Hydroxide (Mom) Oral Liqd Udc PO Q4H PRN Constipation Metoprolol Tartrate 25 mg 04/16/22 18:00 04/17/22 11:05 Metoprolol Tartrate 25 Mg Tab FEEDTUBE 25 mg Q6HR SEGUNDO Administration Midazolam HCl 4 mg 04/15/22 18:00 04/15/22 17:15 Midazolam 5 Mg/5 Ml Inj Mdv IV 4 mg ONCE SEGUNDO Administration Ondansetron HCl 4 mg 04/02/22 23:53 Ondansetron 4 Mg/2 Ml Inj IV Q8H PRN Nausea And Vomiting Polyethylene Glycol 17 gm 04/08/22 10:00 04/17/22 11:03 Polyethylene Glycol 3350 17 Gm Powder PO 17 gm QDAY SEGUNDO Administration Quetiapine Fumarate 100 mg 04/12/22 14:00 04/17/22 05:22 Quetiapine 25 Mg Tab PO 100 mg 0600,1600 SEGUNDO Administration Quetiapine Fumarate 50 mg 04/12/22 14:01 04/16/22 21:25 Quetiapine 25 Mg Tab PO 50 mg QHS SEGUNDO Administration Senna 17.6 mg 04/03/22 22:00 04/17/22 11:02 Sennosides Oral Liqd 8.8 Mg/5 Ml Oral Liqd PO 17.6 mg Q12HR SEGUNDO Administration Sodium Chloride 10 ml 04/03/22 10:00 04/17/22 11:05 Sodium Chloride 0.9% 10 Ml Flush Syringe IV 10 ml BID SEGUNDO Administration Sodium Chloride 10 ml 04/02/22 23:53 Sodium Chloride 0.9% 10 Ml Flush Syringe IV PRN PRN LINE FLUSH Nutrition/Malnutrition Assess - Dietary Evaluation Nutrition/Malnutrition Findings: Nutrition Notes Start: 04/04/22 13:13 Freq: Status: Active Protocol: Document 04/13/22 12:41 COLLEEN (Rec: 04/13/22 13:09 COLLEEN [id number]) Nutrition Notes Initial or Follow up Reassessment Current Diagnosis Coronary Artery Disease, Respiratory Failure, Malnutrition Other Pertinent Diagnosis HCAP, HFpEF, ALS, Pleural Effusion, R-Lung Collapse, Hypotension, ... Current Diet NPO (since 04/13 00:01). Labs/Tests 04/13: Cl 93.9, CO2 39, Crea < 0.2, Phos 1.9. Pertinent Medications 04/13: Nutritionally unremarkable. Height 5 ft 4.8 in Weight 46.8 kg [place] Body Weight (kg) 61.27 BMI 17.2 Weight change and time frame No body weight change reported in 9 days. Weight Status Underweight Subjective/Other Information RD consult for routine F/U on TF tolerance/continuation. Pt currently on NPO. Pt is on Mechanical ventilation, O2 saturation @ 96%, according to Physical Assessment Histroy notes. Pt is awake and tracking, but unable to follow simple commands, according to Progress notes. Procedure planned for 04/13: Trach/PEG, but with moderate to high risk of associated cardiac event, according to Progress notes. Pt to be placed on LTAC facility after procedure. Percent of energy/protein needs met: Pt currently on NPO. Prescribed TF-Vital AF 1.2 Inderjit @ 50 ml/hr provides for energy/protein needs (1,450 Kcal/91 g) during LOS, 98% Kcal; 100% AA. Burn Absent Trauma Absent GI Symptoms Constipation Difficulty In Swallowing,Chewing Food Allergy No Skin Integrity/Comment Sacral skin tear. Current % PO Other Minimum of two criteria No #1 Nutrition Diagnosis Inadequate oral intake Comments: Procedure planned for 04/13: Trach/PEG, but with moderate to high risk of associated cardiac event, according to Progress notes. Diagnosis Progress(for reassessment Continues documentation) Is patient on ventilator? Yes Is Patient Ambulatory and/or Out of Bed No REE-([facility]-confined to bed) [phone] Calculation Used for Recommendations [facility] Additional Notes Protein: 1.2-2 g/Kg IBW; 73- 122 g/day. Fluids: 1 ml/Kcal, or as per MD. Nutrition Intervention Nutrition Support: When pertinent, resume TF- Vital AF 1.2 Inderjit @ 50 ml/hr. Flush: 80 ml water Q 4 hr, or as per MD. Kcal 1,450 Protein (gm) 91 Carbohydrates (gm) 134 Fat (gm) 65 Fluid (mL) 980 Fiber (gm) 6 % RDI: 98% Kcal; 100% AA. Goal #1 Provide at least 75% of energy /protein needs through Enteral Feeding during LOS. Goal #2 Maintain body weight within +/ -3% of admission body weight during LOS. Follow-Up By: 04/20/22 Additional Comments When pertinent, continue monitoring TF tolerance and BM . <DIXIE BROWN - Last Filed: 04/18/22 07:23> Assessment and Plan Assessment and plan: I saw and evaluated the patient. I agree with the findings and the plan of care as documented in the Nurse Practitioner's~note, with the following corrections and additions. Hospitalist Physical - Constitutional Vitals: Temp Pulse Resp BP Pulse Ox 98.1 F 96 H 14 116/68 100 04/18/22 04:05 04/18/22 05:25 04/18/22 05:00 04/18/22 05:09 04/18/22 05:26 HEART Score - HEART Score Troponin: Troponin T 0.031 ng/mL (0.00-0.029) H 04/08/22 17:47 Results - Labs CBC & Chem 7: 04/18/22 04:20 04/18/22 04:20 Labs: Laboratory Last Values WBC 11.2 K/mm3 (4.5-11.0) H 04/18/22 04:20 RBC 3.00 M/mm3 (3.65-5.03) L 04/18/22 04:20 Hgb 9.3 gm/dl (11.8-15.2) L 04/18/22 04:20 Hct 28.6 % (35.5-45.6) L 04/18/22 04:20 MCV 95 fl (84-94) H 04/18/22 04:20 MCH 31 pg (28-32) 04/18/22 04:20 MCHC 33 % (32-34) 04/18/22 04:20 RDW 13.6 % (13.2-15.2) 04/18/22 04:20 Plt Count 370 K/mm3 (140-440) 04/18/22 04:20 Lymph % (Auto) 4.3 % (13.4-35.0) L 04/07/22 03:51 [place] % (Auto) 8.8 % (0.0-7.3) H 04/07/22 03:51 Eos % (Auto) 0.1 % (0.0-4.3) 04/07/22 03:51 Baso % (Auto) 0.2 % (0.0-1.8) 04/07/22 03:51 Lymph # (Auto) 0.6 K/mm3 (1.2-5.4) L 04/07/22 03:51 [place] # (Auto) 1.3 K/mm3 (0.0-0.8) H 04/07/22 03:51 Eos # (Auto) 0.0 K/mm3 (0.0-0.4) 04/07/22 03:51 Baso # (Auto) 0.0 K/mm3 (0.0-0.1) 04/07/22 03:51 Add Manual Diff Complete 04/02/22 19:39 Total Counted 100 04/02/22 19:39 Seg Neutrophils % 86.6 % (40.0-70.0) H 04/07/22 03:51 Seg Neuts % (Manual) 94.0 % (40.0-70.0) H 04/02/22 19:39 Band Neutrophils % 0 % 04/02/22 19:39 Lymphocytes % (Manual) 1.0 % (13.4-35.0) L 04/02/22 19:39 Reactive Lymphs % (Man) 0 % 04/02/22 19:39 Monocytes % (Manual) 5.0 % (0.0-7.3) 04/02/22 19:39 Eosinophils % (Manual) 0 % (0.0-4.3) 04/02/22 19:39 Basophils % (Manual) 0 % (0.0-1.8) 04/02/22 19:39 Metamyelocytes % 0 % 04/02/22 19:39 Myelocytes % 0 % 04/02/22 19:39 Promyelocytes % 0 % 04/02/22 19:39 Blast Cells % 0 % 04/02/22 19:39 Nucleated RBC % Not Reportable 04/02/22 19:39 Seg Neutrophils # 12.7 K/mm3 (1.8-7.7) H 04/07/22 03:51 Seg Neutrophils # Man 13.4 K/mm3 (1.8-7.7) H 04/02/22 19:39 Band Neutrophils # 0.0 K/mm3 04/02/22 19:39 Lymphocytes # (Manual) 0.1 K/mm3 (1.2-5.4) L 04/02/22 19:39 Abs React Lymphs (Man) 0.0 K/mm3 04/02/22 19:39 Monocytes # (Manual) 0.7 K/mm3 (0.0-0.8) 04/02/22 19:39 Eosinophils # (Manual) 0.0 K/mm3 (0.0-0.4) 04/02/22 19:39 Basophils # (Manual) 0.0 K/mm3 (0.0-0.1) 04/02/22 19:39 Metamyelocytes # 0.0 K/mm3 04/02/22 19:39 Myelocytes # 0.0 K/mm3 04/02/22 19:39 Promyelocytes # 0.0 K/mm3 04/02/22 19:39 Blast Cells # 0.0 K/mm3 04/02/22 19:39 WBC Morphology Not Reportable 04/02/22 19:39 Hypersegmented Neuts Not Reportable 04/02/22 19:39 Hyposegmented Neuts Not Reportable 04/02/22 19:39 Hypogranular Neuts Not Reportable 04/02/22 19:39 Smudge Cells Not Reportable 04/02/22 19:39 Toxic Granulation Not Reportable 04/02/22 19:39 Toxic Vacuolation Not Reportable 04/02/22 19:39 Dohle Bodies Not Reportable 04/02/22 19:39 Pelger-Huet Anomaly Not Reportable 04/02/22 19:39 Terry Rods Not Reportable 04/02/22 19:39 Platelet Estimate Consistent w auto 04/02/22 19:39 Clumped Platelets Not Reportable 04/02/22 19:39 Plt Clumps, EDTA Not Reportable 04/02/22 19:39 Large Platelets Not Reportable 04/02/22 19:39 Giant Platelets Not Reportable 04/02/22 19:39 Platelet Satelliting Not Reportable 04/02/22 19:39 Plt Morphology Comment Not Reportable 04/02/22 19:39 RBC Morphology Not Reportable 04/02/22 19:39 Dimorphic RBCs Not Reportable 04/02/22 19:39 Polychromasia Not Reportable 04/02/22 19:39 Hypochromasia Not Reportable 04/02/22 19:39 Poikilocytosis Not Reportable 04/02/22 19:39 Anisocytosis 1+ 04/02/22 19:39 Microcytosis Not Reportable 04/02/22 19:39 Macrocytosis Not Reportable 04/02/22 19:39 Spherocytes Not Reportable 04/02/22 19:39 Pappenheimer Bodies Not Reportable 04/02/22 19:39 Sickle Cells Not Reportable 04/02/22 19:39 Target Cells Not Reportable 04/02/22 19:39 Tear Drop Cells Not Reportable 04/02/22 19:39 Ovalocytes Not Reportable 04/02/22 19:39 Helmet Cells Not Reportable 04/02/22 19:39 Patricio-Otis Bodies Not Reportable 04/02/22 19:39 [place] Rings Not Reportable 04/02/22 19:39 [place] Cells Not Reportable 04/02/22 19:39 Bite Cells Not Reportable 04/02/22 19:39 Crenated Cell Not Reportable 04/02/22 19:39 Elliptocytes Not Reportable 04/02/22 19:39 Acanthocytes (Spur) Not Reportable 04/02/22 19:39 Rouleaux Not Reportable 04/02/22 19:39 Hemoglobin C Crystals Not Reportable 04/02/22 19:39 Schistocytes Not Reportable 04/02/22 19:39 Malaria parasites Not Reportable 04/02/22 19:39 [place] Bodies Not Reportable 04/02/22 19:39 Hem Pathologist Commnt No 04/02/22 19:39 PT 13.6 Sec. (12.2-14.9) 04/13/22 04:30 INR 0.94 (0.87-1.13) 04/13/22 04:30 APTT 35.7 Sec. (24.2-36.6) 04/07/22 03:51 ABG pH 7.345 pH Units (7.350-7.450) L 04/17/22 09:15 ABG pCO2 90.3 mm Hg 04/17/22 09:15 ABG pO2 81.4 mm Hg (80.0-90.0) 04/17/22 09:15 ABG HCO3 48.2 mmol/L (20.0-26.0) H 04/17/22 09:15 ABG O2 Saturation 97.4 % (95.0-99.0) 04/17/22 09:15 ABG O2 Content 13.1 (0.0-44) 04/17/22 09:15 ABG Base Excess 19.2 mmol/L (-2.0-3.0) H 04/17/22 09:15 ABG Hemoglobin 9.7 gm/dl (14.0-18.0) L 04/17/22 09:15 ABG Carboxyhemoglobin 1.1 % (0.0-5.0) 04/17/22 09:15 ABG Methemoglobin 0.3 % (0.0-1.5) 04/17/22 09:15 Oxyhemoglobin 95.9 % (95.0-99.0) 04/17/22 09:15 FiO2 60 % 04/17/22 09:15 Sodium 145 mmol/L (137-145) 04/18/22 04:20 Potassium 4.0 mmol/L (3.6-5.0) 04/18/22 04:20 Chloride 96.8 mmol/L (98-107) L 04/18/22 04:20 Carbon Dioxide 43 mmol/L (22-30) H* 04/18/22 04:20 Anion Gap 9 mmol/L 04/18/22 04:20 BUN 22 mg/dL (9-20) H 04/18/22 04:20 Creatinine < 0.2 mg/dL (0.8-1.3) L 04/18/22 04:20 Estimated GFR > 60 ml/min 04/18/22 04:20 BUN/Creatinine Ratio 110 % 04/18/22 04:20 Glucose 137 mg/dL (75-100) H 04/18/22 04:20 POC Glucose 137 mg/dL (70-105) H 04/17/22 04:57 Lactic Acid 1.90 mmol/L (0.7-2.0) 04/02/22 19:39 Calcium 8.2 mg/dL (8.4-10.2) L 04/18/22 04:20 Phosphorus 2.50 mg/dL (2.5-4.5) 04/17/22 04:36 Magnesium 2.10 mg/dL (1.7-2.3) 04/17/22 04:36 Total Bilirubin 0.80 mg/dL (0.1-1.2) 04/02/22 19:39 AST 15 units/L (5-40) 04/02/22 19:39 ALT 9 units/L (7-56) 04/02/22 19:39 Alkaline Phosphatase 43 units/L (35-129) 04/02/22 19:39 Total Creatine Kinase 46 units/L (55-170) L 04/08/22 17:47 CK-MB (CK-2) 2.6 ng/mL (0.0-4.0) 04/08/22 17:47 CK-MB (CK-2) Rel Index 5.6 (0-4) H 04/08/22 17:47 Troponin T 0.031 ng/mL (0.00-0.029) H 04/08/22 17:47 C-Reactive Protein 31.60 mg/dL (0.00-1.30) H 04/04/22 04:18 Total Protein 4.6 g/dL (6.3-8.2) L 04/02/22 19:39 Albumin 2.7 g/dL (3.9-5) L 04/02/22 19:39 Albumin/Globulin Ratio 1.4 % 04/02/22 19:39 Triglycerides 80 mg/dL (2-149) 04/02/22 19:39 Cholesterol 94 mg/dL (50-199) 04/02/22 19:39 LDL Cholesterol Direct 27 mg/dL (50-130) L 04/02/22 19:39 HDL Cholesterol 47 mg/dL (40-59) 04/02/22 19:39 Cholesterol/HDL Ratio 2.00 % 04/02/22 19:39 Procalcitonin 0.08 ng/mL (<0.15) 04/04/22 04:18 Urine Color Aracely (Yellow) 04/05/22 17:45 Urine Turbidity Cloudy (Clear) 04/05/22 17:45 Urine pH 5.0 (5.0-7.0) 04/05/22 17:45 Ur Specific [place] 1.021 (1.003-1.030) 04/05/22 17:45 Urine Protein 30 mg/dl mg/dL (Negative) 04/05/22 17:45 Urine Glucose (UA) Neg mg/dL (Negative) 04/05/22 17:45 Urine Ketones Tr mg/dL (Negative) 04/05/22 17:45 Urine Blood Sm (Negative) 04/05/22 17:45 Urine Nitrite Neg (Negative) 04/05/22 17:45 Urine Bilirubin Neg (Negative) 04/05/22 17:45 Urine Urobilinogen < 2.0 mg/dL (<2.0) 04/05/22 17:45 Ur Leukocyte Esterase Tr (Negative) 04/05/22 17:45 Urine WBC (Auto) 8.0 /HPF (0.0-6.0) H 04/05/22 17:45 Urine RBC (Auto) 3.0 /HPF (0.0-6.0) 04/05/22 17:45 U Epithel Cells (Auto) 2.0 /HPF (0-13.0) 04/05/22 17:45 Urine Bacteria (Auto) 1+ /HPF (Negative) 04/02/22 Unknown Hyaline Casts 1 /LPF 04/05/22 17:45 Urine Mucus 3+ /HPF 04/05/22 17:45 Nasal Screen MRSA (PCR) Negative (Negative) 04/05/22 12:37 Vancomycin Trough 6.0 ug/mL (5.0-20.0) 04/05/22 18:53 Coronavirus (PCR) Negative (Negative) 04/07/22 14:52 Microbiology: Microbiology 04/15/22 17:57 Bronchial Washings - Right Middle Lobe Respiratory Culture - Preliminary Gram Negative Deejay Perez/IV: Voiding Method Condom Catheter Active Medications - Current Medications Current Medications: Generic Name Dose Route Start Last Admin Trade Name Freq PRN Reason Stop Dose Admin Acetaminophen 650 mg 04/02/22 23:53 04/16/22 12:16 Acetaminophen 325 Mg Tab PO 650 mg Q6H PRN Administration Pain MILD(1-3)/Fever >100.5/FAITH Acetylcysteine 200 mg 04/15/22 10:00 04/17/22 23:39 Acetylcysteine 10% 100 Mg/1 Ml *For Inhalation Use* INHALATION 200 mg Q8HRT SEGUNDO Administration Albuterol 2.5 mg 04/06/22 16:00 04/17/22 23:38 Albuterol 2.5 Mg/3 Ml Nebu IH 2.5 mg Q8HRT SEGUNDO Administration Bisacodyl 10 mg 04/07/22 09:44 04/12/22 10:06 Bisacodyl 10 Mg Rect Supp VA 10 mg QDAY PRN Administration Constipation Dextrose 50 ml 04/06/22 17:54 Dextrose 50% In Water (25gm) 50 Ml Syringe IV Q30MIN PRN Hypoglycemia Protocol Docusate Sodium 100 mg 04/03/22 15:00 04/17/22 21:41 Docusate Sodium 100 Mg/10 Ml Oral Liqd PO 100 mg BID SEGUNDO Administration Famotidine 20 mg 04/06/22 10:00 04/17/22 21:46 Famotidine 20 Mg Tab FEEDTUBE 20 mg BID SEGUNDO Administration Fentanyl 50 mcg 04/04/22 15:56 04/16/22 13:31 Fentanyl 100 Mcg/2 Ml Inj IV 50 mcg Q2HR PRN Administration For CPOT of greater than 3 Fentanyl 100 mcg 04/15/22 18:00 04/15/22 17:12 Fentanyl 100 Mcg/2 Ml Inj IV 100 mcg ONCE SEGUNOD Administration Heparin Sodium (Porcine) 5,000 unit 04/03/22 06:00 04/18/22 05:10 Heparin 5,000 Unit/1 Ml Vial SUB-Q 5,000 unit Q8HR SEGUNDO Administration Dexmedetomidine HCl 400 mcg/ 104 mls @ 2.434 mls/hr 04/03/22 07:00 04/14/22 14:55 Sodium Chloride IV 0 mcg/kg/hr TITRATE SEGUNDO 0 mls/hr Titration Protocol 0.2 MCG/KG/HR Cefepime HCl 1 gm in 100 mls @ 200 mls/hr 04/15/22 21:00 04/18/22 04:22 Cefepime/Ns 1 Gm/100 Ml IV 04/19/22 20:59 200 mls/hr Q8H SEGUNDO Administration Protocol Sodium Chloride 250 mls @ 999 mls/hr 04/15/22 17:50 Nacl 0.9% 250ml IV ONCE SEGUNDO Insulin Human Regular 0 units 04/06/22 18:00 04/18/22 05:09 Insulin Regular, Human 100 Units/1 Ml SUB-Q 1 units Q6H SEGUNDO Administration Protocol Magnesium Hydroxide 30 ml 04/02/22 23:53 Magnesium Hydroxide (Mom) Oral Liqd Udc PO Q4H PRN Constipation Metoprolol Tartrate 25 mg 04/16/22 18:00 04/18/22 05:09 Metoprolol Tartrate 25 Mg Tab FEEDTUBE 25 mg Q6HR SEGUNDO Administration Midazolam HCl 4 mg 04/15/22 18:00 04/15/22 17:15 Midazolam 5 Mg/5 Ml Inj Mdv IV 4 mg ONCE SEGUNDO Administration Ondansetron HCl 4 mg 04/02/22 23:53 Ondansetron 4 Mg/2 Ml Inj IV Q8H PRN Nausea And Vomiting Polyethylene Glycol 17 gm 04/08/22 10:00 04/17/22 11:03 Polyethylene Glycol 3350 17 Gm Powder PO 17 gm QDAY SEGUNDO Administration Quetiapine Fumarate 50 mg 04/12/22 14:01 04/17/22 21:44 Quetiapine 25 Mg Tab PO 50 mg QHS SEGUNDO Administration Quetiapine Fumarate 100 mg 04/18/22 06:00 04/18/22 05:09 Quetiapine 100 Mg Tab PO 100 mg 0600,1600 SEGUNDO Administration Senna 17.6 mg 04/03/22 22:00 04/17/22 21:41 Sennosides Oral Liqd 8.8 Mg/5 Ml Oral Liqd PO 17.6 mg Q12HR SEGUNDO Administration Sodium Chloride 10 ml 04/03/22 10:00 04/17/22 21:46 Sodium Chloride 0.9% 10 Ml Flush Syringe IV 10 ml BID SEGUNDO Administration Sodium Chloride 10 ml 04/02/22 23:53 Sodium Chloride 0.9% 10 Ml Flush Syringe IV PRN PRN LINE FLUSH Nutrition/Malnutrition Assess - Dietary Evaluation Nutrition/Malnutrition Findings: Nutrition Notes Start: 04/04/22 13:13 Freq: Status: Active Protocol: Document 04/13/22 12:41 COLLEEN (Rec: 04/13/22 13:09 COLLEEN [id number]) Nutrition Notes Initial or Follow up Reassessment Current Diagnosis Coronary Artery Disease, Respiratory Failure, Malnutrition Other Pertinent Diagnosis HCAP, HFpEF, ALS, Pleural Effusion, R-Lung Collapse, Hypotension, ... Current Diet NPO (since 04/13 00:01). Labs/Tests 04/13: Cl 93.9, CO2 39, Crea < 0.2, Phos 1.9. Pertinent Medications 04/13: Nutritionally unremarkable. Height 5 ft 4.8 in Weight 46.8 kg [place] Body Weight (kg) 61.27 BMI 17.2 Weight change and time frame No body weight change reported in 9 days. Weight Status Underweight Subjective/Other Information RD consult for routine F/U on TF tolerance/continuation. Pt currently on NPO. Pt is on Mechanical ventilation, O2 saturation @ 96%, according to Physical Assessment Histroy notes. Pt is awake and tracking, but unable to follow simple commands, according to Progress notes. Procedure planned for 04/13: Trach/PEG, but with moderate to high risk of associated cardiac event, according to Progress notes. Pt to be placed on LTAC facility after procedure. Percent of energy/protein needs met: Pt currently on NPO. Prescribed TF-Vital AF 1.2 Inderjit @ 50 ml/hr provides for energy/protein needs (1,450 Kcal/91 g) during LOS, 98% Kcal; 100% AA. Burn Absent Trauma Absent GI Symptoms Constipation Difficulty In Swallowing,Chewing Food Allergy No Skin Integrity/Comment Sacral skin tear. Current % PO Other Minimum of two criteria No #1 Nutrition Diagnosis Inadequate oral intake Comments: Procedure planned for 04/13: Trach/PEG, but with moderate to high risk of associated cardiac event, according to Progress notes. Diagnosis Progress(for reassessment Continues documentation) Is patient on ventilator? Yes Is Patient Ambulatory and/or Out of Bed No REE-([facility]-confined to bed) 2910.902 Calculation Used for Recommendations [facility] Additional Notes Protein: 1.2-2 g/Kg IBW; 73- 122 g/day. Fluids: 1 ml/Kcal, or as per MD. Nutrition Intervention Nutrition Support: When pertinent, resume TF- Vital AF 1.2 Inderjit @ 50 ml/hr. Flush: 80 ml water Q 4 hr, or as per MD. Kcal 1,450 Protein (gm) 91 Carbohydrates (gm) 134 Fat (gm) 65 Fluid (mL) 980 Fiber (gm) 6 % RDI: 98% Kcal; 100% AA. Goal #1 Provide at least 75% of energy /protein needs through Enteral Feeding during LOS. Goal #2 Maintain body weight within +/ -3% of admission body weight during LOS. Follow-Up By: 04/20/22 Additional Comments When pertinent, continue monitoring TF tolerance and BM .
--- NOTE | 2022-04-17 12:16 | Progress Note ---
Assessment and Plan #Respiratory failure/pneumonia #Acute coronary syndrome #Cardiomyopathy #ALS with paralysis Patient is stable from a cardiac standpoint. Will continue conservative cardiac care given multiple comorbidities. Continue beta artis. Cpnsider adding ASA/statin as tolerated. We will sign off. Please call with questions. Subjective Date of service: 04/17/22 Principal diagnosis: Ac and ch hypercapnic and hypoxemic Resp Failure; ALS; HCAP; Sepsis; NSTEMI Interval history: No cardiac events. Appears comfortable. Telemetrysinus tachycardia 102 Objective Vital Signs Temp Pulse Pulse Pulse Pulse Resp Resp 04/17/22 12:00 98.6 F 92 H 17 04/17/22 11:30 04/17/22 11:05 109 H 04/17/22 11:00 104 H 18 04/17/22 10:00 97 H 14 04/17/22 09:00 95 H 95 H 98 H 15 04/17/22 08:55 98 H 04/17/22 08:00 97.5 F L 95 H 16 04/17/22 07:00 100 H 15 04/17/22 06:00 99 H 15 04/17/22 05:23 102 H 04/17/22 05:16 14 04/17/22 05:00 102 H 14 04/17/22 04:00 96 H 16 04/17/22 03:39 88 04/17/22 03:34 99.4 F 04/17/22 03:30 96 H 04/17/22 03:00 82 14 04/17/22 02:15 94 H 14 04/17/22 02:00 94 H 14 04/17/22 01:15 82 04/17/22 01:00 115 H 16 04/17/22 00:50 96 H 04/17/22 00:15 81 81 H 04/17/22 00:13 04/17/22 00:11 104 H 20 04/17/22 00:00 104 H 14 04/16/22 23:50 99.4 F 04/16/22 23:10 105 H 14 04/16/22 23:00 107 H 15 04/16/22 22:00 113 H 14 04/16/22 21:18 110 H 109 H 14 04/16/22 21:00 110 H 15 04/16/22 20:46 107 H 04/16/22 20:00 98.8 F 96 H 14 04/16/22 19:15 100 H 110 H 14 04/16/22 19:00 100 H 14 04/16/22 18:00 107 H 14 04/16/22 17:51 112 H 04/16/22 17:00 110 H 15 04/16/22 16:00 99.5 F 110 H 110 H 14 04/16/22 15:54 104 H 04/16/22 15:49 99 H 20 04/16/22 15:00 102 H 14 04/16/22 14:00 108 H 28 H 04/16/22 13:34 111 H 04/16/22 13:00 111 H 15 Resp BP Pulse Ox Pulse Ox 04/17/22 12:00 116/74 04/17/22 11:30 97 04/17/22 11:05 131/79 04/17/22 11:00 131/79 92 04/17/22 10:00 112/74 98 04/17/22 09:00 17 126/75 98 97 04/17/22 08:55 126/75 96 04/17/22 08:00 129/80 04/17/22 07:00 125/76 96 04/17/22 06:00 119/73 96 04/17/22 05:23 129/75 04/17/22 05:16 98 04/17/22 05:00 128/76 93 04/17/22 04:00 129/70 93 04/17/22 03:39 109/62 97 04/17/22 03:34 04/17/22 03:30 04/17/22 03:00 109/62 04/17/22 02:15 98 04/17/22 02:00 104/57 04/17/22 01:15 109/62 98 04/17/22 01:00 116/69 97 04/17/22 00:50 04/17/22 00:15 102/57 98 04/17/22 00:13 96 04/17/22 00:11 04/17/22 00:00 114/71 94 04/16/22 23:50 04/16/22 23:10 123/68 98 04/16/22 23:00 123/68 95 04/16/22 22:00 129/74 93 04/16/22 21:18 98 04/16/22 21:00 107/74 91 04/16/22 20:46 120/69 93 04/16/22 20:00 120/69 93 04/16/22 19:15 98 04/16/22 19:00 115/69 93 04/16/22 18:00 113/69 95 04/16/22 17:51 121/69 04/16/22 17:00 121/70 92 04/16/22 16:00 121/73 98 95 04/16/22 15:54 122/81 94 04/16/22 15:49 04/16/22 15:00 113/66 95 04/16/22 14:00 114/60 92 04/16/22 13:34 129/77 91 04/16/22 13:00 129/77 84 - Physical Examination General: Other (Awake, on the vent via a tracheostomy) HEENT: Positive: PERRL, Normocephaly, Other (ET-tube in place) Neck: Positive: neck supple, trachea midline (intubated). Negative: JVD/HJR Cardiac: Positive: Tachycardia Neuro: Positive: Other (Awake, on the vent via tracheostomy) Abdomen: Positive: Soft Skin: Positive: Clear Extremities: Present: Other (TR.EDEMA). Absent: edema (NO) - Labs and Meds CBC 04/17/22 Range/Units 04:36 WBC 14.4 H (4.5-11.0) K/mm3 RBC 3.08 L (3.65-5.03) M/mm3 Hgb 9.4 L (11.8-15.2) gm/dl Hct 29.0 L (35.5-45.6) % Plt Count 337 (140-440) K/mm3 Comprehensive Metabolic Panel 04/17/22 Range/Units 04:36 Sodium 144 (137-145) mmol/L Potassium 3.9 (3.6-5.0) mmol/L Chloride 95.9 L (98-107) mmol/L Carbon Dioxide 39 H (22-30) mmol/L BUN 15 (9-20) mg/dL Creatinine < 0.2 L (0.8-1.3) mg/dL Glucose 140 H (75-100) mg/dL Calcium 8.3 L (8.4-10.2) mg/dL
[2022-04-17] MEDS ORDERED: EPINEPHrine RACEMIC 2.25% 0.5ML NEBU IH ONE (14:32)
[2022-04-18] MEDS: CEFEPIME/NS 1 GM/100 ML 1 GM/100 ML BAG IV SCH ×3 (04:22→21:29)
[2022-04-18 04:53] LABS: Hematocrit 28.6 % (35.5-45.6); Hemoglobin 9.3 gm/dl (11.8-15.2); Mean Corpuscular HGB Conc 33 % (32-34); Mean Corpuscular Volume 95 fl (84-94); Platelet Count 370 K/mm3 (140-440); Red Cell Distribution Width 13.6 % (13.2-15.2)
[2022-04-18 05:09] LABS: Blood Urea Nitrogen 22 mg/dL (9-20); Calcium 8.2 mg/dL (8.4-10.2); Hemolysis Index 3
[2022-04-18] MEDS: INSULIN REGULAR, HUMAN 100 UNITS/1 ML SUB-Q SCH ×3 (05:09→18:10)
[2022-04-18] MEDS: QUEtiapine 100 MG TAB PO SCH ×2 (05:09→15:25)
[2022-04-18] MEDS: METOPROLOL TARTRATE 25 MG TAB FEEDTUBE SCH ×3 (05:09→18:11)
[2022-04-18] MEDS: HEPARIN 5,000 UNIT/1 ML VIAL SUB-Q SCH ×3 (05:10→21:28)
[2022-04-18 05:23] LABS: BUN/Creatinine Ratio 110
[2022-04-18] MEDS ORDERED: EPINEPHrine RACEMIC 2.25% 0.5ML NEBU IH ONE (07:34)
[2022-04-18] MEDS: ACETYLCYSTEINE 10% 100 MG/1 ML *FOR INHALATION USE INHALATION SCH ×3 (07:37→23:05)
[2022-04-18] MEDS: ALBUTEROL 2.5 MG/3 ML NEBU IH SCH ×3 (07:37→23:05)
[2022-04-18] MEDS: SENNOSIDES ORAL LIQD 8.8 MG/5 ML ORAL LIQD PO SCH ×2 (10:40→21:28)
[2022-04-18] MEDS: POLYETHYLENE GLYCOL 3350 17 GM POWDER PO SCH (10:40)
[2022-04-18] MEDS: DOCUSATE SODIUM 100 MG/10 ML ORAL LIQD PO SCH ×2 (10:40→21:28)
[2022-04-18] MEDS: FAMOTIDINE 20 MG TAB FEEDTUBE SCH ×2 (10:40→21:28)
--- NOTE | 2022-04-18 12:01 | Progress Note ---
<ALEK SMITH - Last Filed: 04/18/22 17:28> Assessment and Plan Assessment and plan: This is a 57-year-old male with known history of ALS, recently hospitalized at [facility] admitted for acute hypoxemic respiratory failure 2/2 pneumonia Hospital Course to Date: 04/03: Intubated and Sedated on versed gtt, RASS-5. CT head/brain noted with no acute intracranial abnormality. Plan to initiated precededx gtt and wean off versed for a RASS goal of 0 to -2. CT chect also reviewed, findings are most consistent with acute bronchopneumonia. Continue empiric IV Abx, vent adjustment per CCM. ID consulted. Continue to F/U on cultures. Titrate pressor for MAP above 65. Medical records requested from [facility]. 04/04: Remains stable on the vent, easily arousable on precedex gtt, not following commands. Plan for SAT/SBT today. PRN analgesia for CPOT greater than 3. Fevers improved, cultures and procal pending. Continue current IV abx, ID also consulted. Remains on low dose pressors, titrate pressors for a MAP above 65. 04/05: Long discussion with family with use of translation phone with CCM regarding goals of care. Family to have meeting amongst themselves and informed care team of decisions. Fentanyl drip added for respiratory distress. Remains on Precedex drip. Antibiotics per ID. Given 2L NS bolus with levophed gtt 04/06: Family discussion with Dr. Grayson for goals of care. CXR shows possible mucus plug, continue CPT as FiO2 is being able to be weaned. Potassium repleted. Weaning fentnyl gtt. 04/07: Ultrasound guided thoracentesis today scheduled, inadequate amount of pleural effusion on so not completed. Patient was started on Levophed overnight which was weaned off this morning however had to be started twice a day. Remains on fentanyl and Precedex. Cardiology discontinued BB and ACEi in setting of hypotension. 04/08: COVID-19 PCR negative. Routine EEG ordered by cardiology which showed ST changes, cardiology aware. They will continue conservative treatment. Repeat troponins 0.030 which are less than admit of 0.048. Dr. Grayson had a long discu ssion with with the use of interpreter translator today at bedside and has not made a decision regarding goals of care. Possible consult to surgery for trach/PEG early next week. Continues to require Precedex and fentanyl drip for sedation. Carvedilol/lisinopril discontinued as patient is continuously on Levophed. 04/09: No acute events reported overnight, remains on fentanyl, Precedex and Levophed drips. Dr. Grayson and Dr. Pineda updated family at bedside extensively today. Consulted surgery for trach/PEG. COVID-19 PCR negative. 04/10: Patient noted to have desaturation episodes, FiO2 increased slightly to 35%. Will add Mucomyst. Remains on fentanyl and Precedex. Off of Levophed. Surgery consulted for trach/PEG. 04/11: FiO2 increased over night likely related to hypoxia, continues on fent gtt, weaning precedex gtt as he is also on Seroquel. Will d/w CCM re scheduled or prn oxycodone 04/12: Periods of hypoxia and tachycardia this am. Symptoms improved post deep suction and tracheal lavage, Repeat CXR noted with no significant change. Continue CPT and mucomyst. Plan for possible trach/PEG tomorrow by general surgery. 04/13: Remains stable on the vent. Patient is wake and tracking but does not follow simple commands. No report of hypoxia from overnight, continue CPT and mucomyst. Plan for track and PEG today by General Surgery. Plan for LTAC placement post procedure, case management to arrange. 04/14: VIRGILIO overnight, Trach and PEG postponed for today by general surgery. Plan for LTAC placement post procedure, case management to arrange. 04/15: S/p Trach and PEG. Up to 80% FiO2 this am, this am CXR noted suggesting possible mucus plug. D/W [facility] plan for bronch today. Continue CPT and mucomyst. Plan of care thoroughly discussed with patient's and son (who translated for ) at the bedside. Per , commis chef had already discussed the risks and benefits of the procedure yesterday. She verbalized understanding and agreed with procedure and current care plan, consent signed. Okay to use PEG-tube for meds this am, resume TF once okay by general Surgery. Case management to arrange LTAC placement. 04/16: s/p Bronchocopy by [facility]. FiO2 down to 60%, angela 10 this am. This am CXR with moderate improvement. Continue CPT and mucomyst, wean Fio2 as tolerated for SPO2 above 92%. Patient is tolerating TF, advance to goal as ordered. Possible LTAC placement, case management to arrange. 04/17: VIRGILIO overnight. remains stable on the vent, recent CXR and this am ABG n oted. Continue CPT and mucomyst, wean Fio2 as tolerated. 04/18: Remains stable on the vent, Fio2 down to 55% and peep of 8 this am. Continue to wean as tolerated, CPT, and mucomyst. Dsiposition- LTAC placement, case management to arrange. Assessment and Plan #Acute Hypoxemic Respiratory Failure 12/09 #Acute Bronchopneumonia - Intubated in the ED on 04/02 for hypoxemia and airway protection - 04/14 s/p Trach and PEG - 04/15 CXR reviewed complete opacity of the righ side suggesting possible mucus plug. See report for detail - 04/15 s/p Bronchoscopy by [facility] - Vent setting: PRVC-60%,10,14,400 - Repeat CXR this am with moderate improvement - This am ABG pending - [facility] consulted, appreciate recommendations - Continue IV abx per ID, CPT and mucomyst per CCM - VAP bundle addressed - Aspiration precaution HOB above 30 - PRN ABG and CXR per [facility] - Continue SPO2 monitoring for SPO2 goal above 92% #Sepsis #Acute Bronchopneumonia #HCAP #Leukocytosis - CXR shows moderate to large layering effusion on the right, see report for full detail - CT chest also reviewed, findings are most consistent with acute bronchopneumonia. See report for full detail - Patient was recent hospitalized for pneumonia - Patient remains afebrile - Tracheal aspirate with Pseudomonas aeruginosa, Enterobacter aerogenes - 04/02 blood culture with bacillus species, 04/05 blood culture NGTD - CRP 31.6, procalcitonin 0.08 - MRSA negative - ID on consulted, appreciate recommendations - Continue IV Abx Cefepine per ID - Continue to F/U on cultures - Daily CBC monitor #Hypotension 2/ sepsis-resolved #Suspect ischemic coronary artery disease #h/o cardiomyopathy - Low BP probably due to hypovolemia vs sedation vs infectious process - s/p Levophed gtt - Elevated troponin possibly a type II troponin leak - Cardiology consulted, appreciated recommendations - Echocardiogram shows ejection fraction of 40 to 45%, mild global hypokinesis of left ventricle - Continue BB - Continue blood pressure monitor per protocol - Maintain MAP above 65 - On heparin SubQ #Hypernatremia-resolved - Monitor and replace electrolytes as needed - Continue to trend BMP #Acute Metabolic Encephalopathy #H/o Amyotrophic Lateral Sclerosis #Nonverbal at Baseline - Presented with AMS, per family patient is nonverbal at baseline but responsive - CT head/Brain with no acute intracranial process - Off sedation. Awake and calm - Hold sedation for now - Continue Seroquel per CCM - Avoid benzodiazepine to reduce the possibility of delirium - PRN analgesia for CPOT greater than 3 - Maintenance of sleep-wake cycle #Thrombocytopenia-resolved - Continue to trend plt - On heparin subQ - Monitor for s/s of any active bleeding #Protein Caloric Malnutrition - Albumin 2.7, Total protein 4.6 - 04/15 s/p EPG-Tube placement - Continue enteral nutrition - Nutrition consulted #Constipation - Noted on CXR and KUB - last BM 04/15 - Continue BR #GI/DVT Prophylaxis - PPI- Pepcid - Heparin SubQ - SCDs to bilateral lower extremities while in bed #Advance Care Planning - Disease education data, care plan, diagnoses, and prognosis were discussed patient's , Carly Lopez, and patient daughter, Kaylee Warren, who translated for #[phone]. They reported that patient was following at [facility] for his ALS and during recent hospitalization at [facility] they were told nothing else can be offered to patient at this time and patient was discharge home with home hospice and PO morphine. First hospice visit was on , however, patient became unresponsive yesterday and they brought in to the hospital. - Goal of care and code status were also addressed at that time. Family wants to wait for a couple days to see how patient respond to current treatment before making a decision. All questions and concerns were addressed at this time. Patient family acknowledged understanding and agreement with care plan. - Patient remains a FULL CODE status -04/05: Discussion at bedside with interpreting service with Dr. Valdivia and family state they would discuss next steps amongst themselves and let healthcare team know of decisions -04/06: extensive discussion with family ( and son) with Dr. Grayson regarding goals of care -04/08: Extensive discussion with with the use of interpreter translator line regarding goals of care; no decision made. Possible consult to surgery for trach/PEG early next week. -04/09: Discussion with and her sister with Dr. Grayson and then with Dr. Pineda-> Consulted surgery for trach/peg -Plan LTAC placement, case management to arrange. The high probability of a clinically significant, sudden or life threatening deterioration of the [multiple] system(s) required my full and direct attention, intervention and personal management. The aggregate critical care time was [60] minutes. This time is in addition to time spent performing reported procedures but includes the following: [x] Data Review and interpretation [x] Patient assessment and monitoring of vital signs [x] Documentation [x] Medication orders and management Disposition Plan: ICU Total Time Spent with Patient (Minutes): 60 History Interval history: Patient seen and examined at the bedside. Stable on the vent, awake and tracking, VSS, tolerating TF. VIRGILIO overnight Hospitalist Physical - Physical exam Narrative exam: General appearance: Present: no acute distress, cachectic, other (Trach and on the vent.Awake and tracking) - EENT Eyes: Present: PERRL - Neck Neck: Present: normal ROM - Respiratory Respiratory effort: normal Respiratory: bilateral: rhonchi - Cardiovascular Rhythm: regular Heart Sounds: Present: S1 & S2 - Extremities Extremities: no ischemia, pulses intact, pulses symmetrical Peripheral Pulses: within normal limits - Abdominal General gastrointestinal: soft, non-distended, normal bowel sounds - Integumentary Integumentary: Present: warm, dry - Psychiatric Psychiatric: other (Trach and on the vent. Awake and tracking, off sedations) - Neurologic Neurologic: other (Trach and on the vent. Awake and tracking) - Allied Health Allied health notes reviewed: nursing, case management - Constitutional Vitals: Temp Pulse Resp BP Pulse Ox 97.8 F 92 H 15 138/75 93 04/18/22 08:00 04/18/22 11:20 04/18/22 11:00 04/18/22 11:20 04/18/22 11:00 HEART Score - HEART Score Troponin: Troponin T 0.031 ng/mL (0.00-0.029) H 04/08/22 17:47 Results - Labs CBC & Chem 7: 04/18/22 04:20 04/18/22 04:20 Labs: Laboratory Last Values WBC 11.2 K/mm3 (4.5-11.0) H 04/18/22 04:20 RBC 3.00 M/mm3 (3.65-5.03) L 04/18/22 04:20 Hgb 9.3 gm/dl (11.8-15.2) L 04/18/22 04:20 Hct 28.6 % (35.5-45.6) L 04/18/22 04:20 MCV 95 fl (84-94) H 04/18/22 04:20 MCH 31 pg (28-32) 04/18/22 04:20 MCHC 33 % (32-34) 04/18/22 04:20 RDW 13.6 % (13.2-15.2) 04/18/22 04:20 Plt Count 370 K/mm3 (140-440) 04/18/22 04:20 Lymph % (Auto) 4.3 % (13.4-35.0) L 04/07/22 03:51 [place] % (Auto) 8.8 % (0.0-7.3) H 04/07/22 03:51 Eos % (Auto) 0.1 % (0.0-4.3) 04/07/22 03:51 Baso % (Auto) 0.2 % (0.0-1.8) 04/07/22 03:51 Lymph # (Auto) 0.6 K/mm3 (1.2-5.4) L 04/07/22 03:51 [place] # (Auto) 1.3 K/mm3 (0.0-0.8) H 04/07/22 03:51 Eos # (Auto) 0.0 K/mm3 (0.0-0.4) 04/07/22 03:51 Baso # (Auto) 0.0 K/mm3 (0.0-0.1) 04/07/22 03:51 Add Manual Diff Complete 04/02/22 19:39 Total Counted 100 04/02/22 19:39 Seg Neutrophils % 86.6 % (40.0-70.0) H 04/07/22 03:51 Seg Neuts % (Manual) 94.0 % (40.0-70.0) H 04/02/22 19:39 Band Neutrophils % 0 % 04/02/22 19:39 Lymphocytes % (Manual) 1.0 % (13.4-35.0) L 04/02/22 19:39 Reactive Lymphs % (Man) 0 % 04/02/22 19:39 Monocytes % (Manual) 5.0 % (0.0-7.3) 04/02/22 19:39 Eosinophils % (Manual) 0 % (0.0-4.3) 04/02/22 19:39 Basophils % (Manual) 0 % (0.0-1.8) 04/02/22 19:39 Metamyelocytes % 0 % 04/02/22 19:39 Myelocytes % 0 % 04/02/22 19:39 Promyelocytes % 0 % 04/02/22 19:39 Blast Cells % 0 % 04/02/22 19:39 Nucleated RBC % Not Reportable 04/02/22 19:39 Seg Neutrophils # 12.7 K/mm3 (1.8-7.7) H 04/07/22 03:51 Seg Neutrophils # Man 13.4 K/mm3 (1.8-7.7) H 04/02/22 19:39 Band Neutrophils # 0.0 K/mm3 04/02/22 19:39 Lymphocytes # (Manual) 0.1 K/mm3 (1.2-5.4) L 04/02/22 19:39 Abs React Lymphs (Man) 0.0 K/mm3 04/02/22 19:39 Monocytes # (Manual) 0.7 K/mm3 (0.0-0.8) 04/02/22 19:39 Eosinophils # (Manual) 0.0 K/mm3 (0.0-0.4) 04/02/22 19:39 Basophils # (Manual) 0.0 K/mm3 (0.0-0.1) 04/02/22 19:39 Metamyelocytes # 0.0 K/mm3 04/02/22 19:39 Myelocytes # 0.0 K/mm3 04/02/22 19:39 Promyelocytes # 0.0 K/mm3 04/02/22 19:39 Blast Cells # 0.0 K/mm3 04/02/22 19:39 WBC Morphology Not Reportable 04/02/22 19:39 Hypersegmented Neuts Not Reportable 04/02/22 19:39 Hyposegmented Neuts Not Reportable 04/02/22 19:39 Hypogranular Neuts Not Reportable 04/02/22 19:39 Smudge Cells Not Reportable 04/02/22 19:39 Toxic Granulation Not Reportable 04/02/22 19:39 Toxic Vacuolation Not Reportable 04/02/22 19:39 Dohle Bodies Not Reportable 04/02/22 19:39 Pelger-Huet Anomaly Not Reportable 04/02/22 19:39 Terry Rods Not Reportable 04/02/22 19:39 Platelet Estimate Consistent w auto 04/02/22 19:39 Clumped Platelets Not Reportable 04/02/22 19:39 Plt Clumps, EDTA Not Reportable 04/02/22 19:39 Large Platelets Not Reportable 04/02/22 19:39 Giant Platelets Not Reportable 04/02/22 19:39 Platelet Satelliting Not Reportable 04/02/22 19:39 Plt Morphology Comment Not Reportable 04/02/22 19:39 RBC Morphology Not Reportable 04/02/22 19:39 Dimorphic RBCs Not Reportable 04/02/22 19:39 Polychromasia Not Reportable 04/02/22 19:39 Hypochromasia Not Reportable 04/02/22 19:39 Poikilocytosis Not Reportable 04/02/22 19:39 Anisocytosis 1+ 04/02/22 19:39 Microcytosis Not Reportable 04/02/22 19:39 Macrocytosis Not Reportable 04/02/22 19:39 Spherocytes Not Reportable 04/02/22 19:39 Pappenheimer Bodies Not Reportable 04/02/22 19:39 Sickle Cells Not Reportable 04/02/22 19:39 Target Cells Not Reportable 04/02/22 19:39 Tear Drop Cells Not Reportable 04/02/22 19:39 Ovalocytes Not Reportable 04/02/22 19:39 Helmet Cells Not Reportable 04/02/22 19:39 Patricio-Montreal Bodies Not Reportable 04/02/22 19:39 [place] Rings Not Reportable 04/02/22 19:39 Cheikh Cells Not Reportable 04/02/22 19:39 Bite Cells Not Reportable 04/02/22 19:39 Crenated Cell Not Reportable 04/02/22 19:39 Elliptocytes Not Reportable 04/02/22 19:39 Acanthocytes (Spur) Not Reportable 04/02/22 19:39 Rouleaux Not Reportable 04/02/22 19:39 Hemoglobin C Crystals Not Reportable 04/02/22 19:39 Schistocytes Not Reportable 04/02/22 19:39 Malaria parasites Not Reportable 04/02/22 19:39 [place] Bodies Not Reportable 04/02/22 19:39 Hem Pathologist Commnt No 04/02/22 19:39 PT 13.6 Sec. (12.2-14.9) 04/13/22 04:30 INR 0.94 (0.87-1.13) 04/13/22 04:30 APTT 35.7 Sec. (24.2-36.6) 04/07/22 03:51 ABG pH 7.345 pH Units (7.350-7.450) L 04/17/22 09:15 ABG pCO2 90.3 mm Hg 04/17/22 09:15 ABG pO2 81.4 mm Hg (80.0-90.0) 04/17/22 09:15 ABG HCO3 48.2 mmol/L (20.0-26.0) H 04/17/22 09:15 ABG O2 Saturation 97.4 % (95.0-99.0) 04/17/22 09:15 ABG O2 Content 13.1 (0.0-44) 04/17/22 09:15 ABG Base Excess 19.2 mmol/L (-2.0-3.0) H 04/17/22 09:15 ABG Hemoglobin 9.7 gm/dl (14.0-18.0) L 04/17/22 09:15 ABG Carboxyhemoglobin 1.1 % (0.0-5.0) 04/17/22 09:15 ABG Methemoglobin 0.3 % (0.0-1.5) 04/17/22 09:15 Oxyhemoglobin 95.9 % (95.0-99.0) 04/17/22 09:15 FiO2 60 % 04/17/22 09:15 Sodium 145 mmol/L (137-145) 04/18/22 04:20 Potassium 4.0 mmol/L (3.6-5.0) 04/18/22 04:20 Chloride 96.8 mmol/L (98-107) L 04/18/22 04:20 Carbon Dioxide 43 mmol/L (22-30) H* 04/18/22 04:20 Anion Gap 9 mmol/L 04/18/22 04:20 BUN 22 mg/dL (9-20) H 04/18/22 04:20 Creatinine < 0.2 mg/dL (0.8-1.3) L 04/18/22 04:20 Estimated GFR > 60 ml/min 04/18/22 04:20 BUN/Creatinine Ratio 110 % 04/18/22 04:20 Glucose 137 mg/dL (75-100) H 04/18/22 04:20 POC Glucose 137 mg/dL (70-105) H 04/17/22 04:57 Lactic Acid 1.90 mmol/L (0.7-2.0) 04/02/22 19:39 Calcium 8.2 mg/dL (8.4-10.2) L 04/18/22 04:20 Phosphorus 2.50 mg/dL (2.5-4.5) 04/17/22 04:36 Magnesium 2.10 mg/dL (1.7-2.3) 04/17/22 04:36 Total Bilirubin 0.80 mg/dL (0.1-1.2) 04/02/22 19:39 AST 15 units/L (5-40) 04/02/22 19:39 ALT 9 units/L (7-56) 04/02/22 19:39 Alkaline Phosphatase 43 units/L (35-129) 04/02/22 19:39 Total Creatine Kinase 46 units/L (55-170) L 04/08/22 17:47 CK-MB (CK-2) 2.6 ng/mL (0.0-4.0) 04/08/22 17:47 CK-MB (CK-2) Rel Index 5.6 (0-4) H 04/08/22 17:47 Troponin T 0.031 ng/mL (0.00-0.029) H 04/08/22 17:47 C-Reactive Protein 31.60 mg/dL (0.00-1.30) H 04/04/22 04:18 Total Protein 4.6 g/dL (6.3-8.2) L 04/02/22 19:39 Albumin 2.7 g/dL (3.9-5) L 04/02/22 19:39 Albumin/Globulin Ratio 1.4 % 04/02/22 19:39 Triglycerides 80 mg/dL (2-149) 04/02/22 19:39 Cholesterol 94 mg/dL (50-199) 04/02/22 19:39 LDL Cholesterol Direct 27 mg/dL (50-130) L 04/02/22 19:39 HDL Cholesterol 47 mg/dL (40-59) 04/02/22 19:39 Cholesterol/HDL Ratio 2.00 % 04/02/22 19:39 Procalcitonin 0.08 ng/mL (<0.15) 04/04/22 04:18 Urine Color Aracely (Yellow) 04/05/22 17:45 Urine Turbidity Cloudy (Clear) 04/05/22 17:45 Urine pH 5.0 (5.0-7.0) 04/05/22 17:45 Ur Specific [place] 1.021 (1.003-1.030) 04/05/22 17:45 Urine Protein 30 mg/dl mg/dL (Negative) 04/05/22 17:45 Urine Glucose (UA) Neg mg/dL (Negative) 04/05/22 17:45 Urine Ketones Tr mg/dL (Negative) 04/05/22 17:45 Urine Blood Sm (Negative) 04/05/22 17:45 Urine Nitrite Neg (Negative) 04/05/22 17:45 Urine Bilirubin Neg (Negative) 04/05/22 17:45 Urine Urobilinogen < 2.0 mg/dL (<2.0) 04/05/22 17:45 Ur Leukocyte Esterase Tr (Negative) 04/05/22 17:45 Urine WBC (Auto) 8.0 /HPF (0.0-6.0) H 04/05/22 17:45 Urine RBC (Auto) 3.0 /HPF (0.0-6.0) 04/05/22 17:45 U Epithel Cells (Auto) 2.0 /HPF (0-13.0) 04/05/22 17:45 Urine Bacteria (Auto) 1+ /HPF (Negative) 04/02/22 Unknown Hyaline Casts 1 /LPF 04/05/22 17:45 Urine Mucus 3+ /HPF 04/05/22 17:45 Nasal Screen MRSA (PCR) Negative (Negative) 04/05/22 12:37 Vancomycin Trough 6.0 ug/mL (5.0-20.0) 04/05/22 18:53 Coronavirus (PCR) Negative (Negative) 04/07/22 14:52 Microbiology: Microbiology 04/15/22 17:57 Bronchial Washings - Right Middle Lobe Respiratory Culture - Preliminary Gram Negative Deejay Perez/IV: Voiding Method Condom Catheter Active Medications - Current Medications Current Medications: Generic Name Dose Route Start Last Admin Trade Name Freq PRN Reason Stop Dose Admin Acetaminophen 650 mg 04/02/22 23:53 04/16/22 12:16 Acetaminophen 325 Mg Tab PO 650 mg Q6H PRN Administration Pain MILD(1-3)/Fever >100.5/FAITH Acetylcysteine 200 mg 04/15/22 10:00 04/18/22 07:37 Acetylcysteine 10% 100 Mg/1 Ml *For Inhalation Use* INHALATION 200 mg Q8HRT SEGUNDO Administration Albuterol 2.5 mg 04/06/22 16:00 04/18/22 07:37 Albuterol 2.5 Mg/3 Ml Nebu IH 2.5 mg Q8HRT SEGUNDO Administration Bisacodyl 10 mg 04/07/22 09:44 04/12/22 10:06 Bisacodyl 10 Mg Rect Supp TX 10 mg QDAY PRN Administration Constipation Dextrose 50 ml 04/06/22 17:54 Dextrose 50% In Water (25gm) 50 Ml Syringe IV Q30MIN PRN Hypoglycemia Protocol Docusate Sodium 100 mg 04/03/22 15:00 04/18/22 10:40 Docusate Sodium 100 Mg/10 Ml Oral Liqd PO 100 mg BID SEGUNDO Administration Famotidine 20 mg 04/06/22 10:00 04/18/22 10:40 Famotidine 20 Mg Tab FEEDTUBE 20 mg BID SEGUNDO Administration Fentanyl 50 mcg 04/04/22 15:56 04/16/22 13:31 Fentanyl 100 Mcg/2 Ml Inj IV 50 mcg Q2HR PRN Administration For CPOT of greater than 3 Fentanyl 100 mcg 04/15/22 18:00 04/15/22 17:12 Fentanyl 100 Mcg/2 Ml Inj IV 100 mcg ONCE SEGUNDO Administration Heparin Sodium (Porcine) 5,000 unit 04/03/22 06:00 04/18/22 05:10 Heparin 5,000 Unit/1 Ml Vial SUB-Q 5,000 unit Q8HR SEGUNDO Administration Dexmedetomidine HCl 400 mcg/ 104 mls @ 2.434 mls/hr 04/03/22 07:00 04/14/22 14:55 Sodium Chloride IV 0 mcg/kg/hr TITRATE SEGUNDO 0 mls/hr Titration Protocol 0.2 MCG/KG/HR Cefepime HCl 1 gm in 100 mls @ 200 mls/hr 04/15/22 21:00 04/18/22 04:22 Cefepime/Ns 1 Gm/100 Ml IV 04/19/22 20:59 200 mls/hr Q8H SEGUNDO Administration Protocol Sodium Chloride 250 mls @ 999 mls/hr 04/15/22 17:50 Nacl 0.9% 250ml IV ONCE SEGNUDO Insulin Human Regular 0 units 04/06/22 18:00 04/18/22 11:21 Insulin Regular, Human 100 Units/1 Ml SUB-Q Not Given Q6H [facility] Protocol Magnesium Hydroxide 30 ml 04/02/22 23:53 Magnesium Hydroxide (Mom) Oral Liqd Udc PO Q4H PRN Constipation Metoprolol Tartrate 25 mg 04/16/22 18:00 04/18/22 11:20 Metoprolol Tartrate 25 Mg Tab FEEDTUBE 25 mg Q6HR SEGUNDO Administration Midazolam HCl 4 mg 04/15/22 18:00 04/15/22 17:15 Midazolam 5 Mg/5 Ml Inj Mdv IV 4 mg ONCE SEGUNDO Administration Ondansetron HCl 4 mg 04/02/22 23:53 Ondansetron 4 Mg/2 Ml Inj IV Q8H PRN Nausea And Vomiting Polyethylene Glycol 17 gm 04/08/22 10:00 04/18/22 10:40 Polyethylene Glycol 3350 17 Gm Powder PO 17 gm QDAY SEGUNDO Administration Quetiapine Fumarate 50 mg 04/12/22 14:01 04/17/22 21:44 Quetiapine 25 Mg Tab PO 50 mg QHS SEGUNDO Administration Quetiapine Fumarate 100 mg 04/18/22 06:00 04/18/22 05:09 Quetiapine 100 Mg Tab PO 100 mg 0600,1600 SEGUNDO Administration Senna 17.6 mg 04/03/22 22:00 04/18/22 10:40 Sennosides Oral Liqd 8.8 Mg/5 Ml Oral Liqd PO 17.6 mg Q12HR SEGUNDO Administration Sodium Chloride 10 ml 04/03/22 10:00 04/18/22 10:40 Sodium Chloride 0.9% 10 Ml Flush Syringe IV 10 ml BID SEGUNDO Administration Sodium Chloride 10 ml 04/02/22 23:53 Sodium Chloride 0.9% 10 Ml Flush Syringe IV PRN PRN LINE FLUSH Nutrition/Malnutrition Assess - Dietary Evaluation Nutrition/Malnutrition Findings: Nutrition Notes Start: 04/04/22 13:13 Freq: Status: Active Protocol: Document 04/13/22 12:41 COLLEEN (Rec: 04/13/22 13:09 COLLEEN [id number]) Nutrition Notes Initial or Follow up Reassessment Current Diagnosis Coronary Artery Disease, Respiratory Failure, Malnutrition Other Pertinent Diagnosis HCAP, HFpEF, ALS, Pleural Effusion, R-Lung Collapse, Hypotension, ... Current Diet NPO (since 04/13 00:01). Labs/Tests 04/13: Cl 93.9, CO2 39, Crea < 0.2, Phos 1.9. Pertinent Medications 04/13: Nutritionally unremarkable. Height 5 ft 4.8 in Weight 46.8 kg [place] Body Weight (kg) 61.27 BMI 17.2 Weight change and time frame No body weight change reported in 9 days. Weight Status Underweight Subjective/Other Information RD consult for routine F/U on TF tolerance/continuation. Pt currently on NPO. Pt is on Mechanical ventilation, O2 saturation @ 96%, according to Physical Assessment Histroy notes. Pt is awake and tracking, but unable to follow simple commands, according to Progress notes. Procedure planned for 04/13: Trach/PEG, but with moderate to high risk of associated cardiac event, according to Progress notes. Pt to be placed on LTAC facility after procedure. Percent of energy/protein needs met: Pt currently on NPO. Prescribed TF-Vital AF 1.2 Inderjit @ 50 ml/hr provides for energy/protein needs (1,450 Kcal/91 g) during LOS, 98% Kcal; 100% AA. Burn Absent Trauma Absent GI Symptoms Constipation Difficulty In Swallowing,Chewing Food Allergy No Skin Integrity/Comment Sacral skin tear. Current % PO Other Minimum of two criteria No #1 Nutrition Diagnosis Inadequate oral intake Comments: Procedure planned for 04/13: Trach/PEG, but with moderate to high risk of associated cardiac event, according to Progress notes. Diagnosis Progress(for reassessment Continues documentation) Is patient on ventilator? Yes Is Patient Ambulatory and/or Out of Bed No [place] [place] [place] [facility] [phone] Calculation [facility] Additional Notes Protein: 1.2-2 g/Kg IBW; 73- 122 g/day. Fluids: 1 ml/Kcal, or as per MD. Nutrition Intervention Nutrition Support: When pertinent, resume TF- Vital AF 1.2 Inderjit @ 50 ml/hr. Flush: 80 ml water Q 4 hr, or as per MD. Kcal 1,450 Protein (gm) 91 Carbohydrates (gm) 134 Fat (gm) 65 Fluid (mL) 980 Fiber (gm) 6 % RDI: 98% Kcal; 100% AA. Goal #1 Provide at least 75% of energy /protein needs through Enteral Feeding during LOS. Goal #2 Maintain body weight within +/ -3% of admission body weight during LOS. Follow-Up By: 04/20/22 Additional Comments When pertinent, continue monitoring TF tolerance and BM . <DIXIE BROWN E - Last Filed: 04/19/22 07:15> Assessment and Plan Assessment and plan: I saw and evaluated the patient. I agree with the findings and the plan of care as documented in the Nurse Practitioner's~note, with the following corrections and additions. Hospitalist Physical - Constitutional Vitals: Temp Pulse Resp BP Pulse Ox 98.9 F 94 H 14 114/70 94 04/19/22 04:00 04/19/22 07:00 04/19/22 07:00 04/19/22 07:00 04/19/22 07:00 HEART Score - HEART Score Troponin: Troponin T 0.031 ng/mL (0.00-0.029) H 04/08/22 17:47 Results - Labs CBC & Chem 7: 04/19/22 04:08 04/19/22 04:08 Labs: Laboratory Last Values WBC 16.8 K/mm3 (4.5-11.0) H 04/19/22 04:08 RBC 3.18 M/mm3 (3.65-5.03) L 04/19/22 04:08 Hgb 9.8 gm/dl (11.8-15.2) L 04/19/22 04:08 Hct 30.1 % (35.5-45.6) L 04/19/22 04:08 MCV 95 fl (84-94) H 04/19/22 04:08 MCH 31 pg (28-32) 04/19/22 04:08 MCHC 32 % (32-34) 04/19/22 04:08 RDW 13.8 % (13.2-15.2) 04/19/22 04:08 Plt Count 425 K/mm3 (140-440) 04/19/22 04:08 Lymph % (Auto) 4.3 % (13.4-35.0) L 04/07/22 03:51 [place] % (Auto) 8.8 % (0.0-7.3) H 04/07/22 03:51 Eos % (Auto) 0.1 % (0.0-4.3) 04/07/22 03:51 Baso % (Auto) 0.2 % (0.0-1.8) 04/07/22 03:51 Lymph # (Auto) 0.6 K/mm3 (1.2-5.4) L 04/07/22 03:51 [place] # (Auto) 1.3 K/mm3 (0.0-0.8) H 04/07/22 03:51 Eos # (Auto) 0.0 K/mm3 (0.0-0.4) 04/07/22 03:51 Baso # (Auto) 0.0 K/mm3 (0.0-0.1) 04/07/22 03:51 Add Manual Diff Complete 04/02/22 19:39 Total Counted 100 04/02/22 19:39 Seg Neutrophils % 86.6 % (40.0-70.0) H 04/07/22 03:51 Seg Neuts % (Manual) 94.0 % (40.0-70.0) H 04/02/22 19:39 Band Neutrophils % 0 % 04/02/22 19:39 Lymphocytes % (Manual) 1.0 % (13.4-35.0) L 04/02/22 19:39 Reactive Lymphs % (Man) 0 % 04/02/22 19:39 Monocytes % (Manual) 5.0 % (0.0-7.3) 04/02/22 19:39 Eosinophils % (Manual) 0 % (0.0-4.3) 04/02/22 19:39 Basophils % (Manual) 0 % (0.0-1.8) 04/02/22 19:39 Metamyelocytes % 0 % 04/02/22 19:39 Myelocytes % 0 % 04/02/22 19:39 Promyelocytes % 0 % 04/02/22 19:39 Blast Cells % 0 % 04/02/22 19:39 Nucleated RBC % Not Reportable 04/02/22 19:39 Seg Neutrophils # 12.7 K/mm3 (1.8-7.7) H 04/07/22 03:51 Seg Neutrophils # Man 13.4 K/mm3 (1.8-7.7) H 04/02/22 19:39 Band Neutrophils # 0.0 K/mm3 04/02/22 19:39 Lymphocytes # (Manual) 0.1 K/mm3 (1.2-5.4) L 04/02/22 19:39 Abs React Lymphs (Man) 0.0 K/mm3 04/02/22 19:39 Monocytes # (Manual) 0.7 K/mm3 (0.0-0.8) 04/02/22 19:39 Eosinophils # (Manual) 0.0 K/mm3 (0.0-0.4) 04/02/22 19:39 Basophils # (Manual) 0.0 K/mm3 (0.0-0.1) 04/02/22 19:39 Metamyelocytes # 0.0 K/mm3 04/02/22 19:39 Myelocytes # 0.0 K/mm3 04/02/22 19:39 Promyelocytes # 0.0 K/mm3 04/02/22 19:39 Blast Cells # 0.0 K/mm3 04/02/22 19:39 WBC Morphology Not Reportable 04/02/22 19:39 Hypersegmented Neuts Not Reportable 04/02/22 19:39 Hyposegmented Neuts Not Reportable 04/02/22 19:39 Hypogranular Neuts Not Reportable 04/02/22 19:39 Smudge Cells Not Reportable 04/02/22 19:39 Toxic Granulation Not Reportable 04/02/22 19:39 Toxic Vacuolation Not Reportable 04/02/22 19:39 Dohle Bodies Not Reportable 04/02/22 19:39 Pelger-Huet Anomaly Not Reportable 04/02/22 19:39 Terry Rods Not Reportable 04/02/22 19:39 Platelet Estimate Consistent w auto 04/02/22 19:39 Clumped Platelets Not Reportable 04/02/22 19:39 Plt Clumps, EDTA Not Reportable 04/02/22 19:39 Large Platelets Not Reportable 04/02/22 19:39 Giant Platelets Not Reportable 04/02/22 19:39 Platelet Satelliting Not Reportable 04/02/22 19:39 Plt Morphology Comment Not Reportable 04/02/22 19:39 RBC Morphology Not Reportable 04/02/22 19:39 Dimorphic RBCs Not Reportable 04/02/22 19:39 Polychromasia Not Reportable 04/02/22 19:39 Hypochromasia Not Reportable 04/02/22 19:39 Poikilocytosis Not Reportable 04/02/22 19:39 Anisocytosis 1+ 04/02/22 19:39 Microcytosis Not Reportable 04/02/22 19:39 Macrocytosis Not Reportable 04/02/22 19:39 Spherocytes Not Reportable 04/02/22 19:39 Pappenheimer Bodies Not Reportable 04/02/22 19:39 Sickle Cells Not Reportable 04/02/22 19:39 Target Cells Not Reportable 04/02/22 19:39 Tear Drop Cells Not Reportable 04/02/22 19:39 Ovalocytes Not Reportable 04/02/22 19:39 Helmet Cells Not Reportable 04/02/22 19:39 Patricio-Montreal Bodies Not Reportable 04/02/22 19:39 [place] Rings Not Reportable 04/02/22 19:39 Cheikh Cells Not Reportable 04/02/22 19:39 Bite Cells Not Reportable 04/02/22 19:39 Crenated Cell Not Reportable 04/02/22 19:39 Elliptocytes Not Reportable 04/02/22 19:39 Acanthocytes (Spur) Not Reportable 04/02/22 19:39 Rouleaux Not Reportable 04/02/22 19:39 Hemoglobin C Crystals Not Reportable 04/02/22 19:39 Schistocytes Not Reportable 04/02/22 19:39 Malaria parasites Not Reportable 04/02/22 19:39 [place] Bodies Not Reportable 04/02/22 19:39 Hem Pathologist Commnt No 04/02/22 19:39 PT 13.6 Sec. (12.2-14.9) 04/13/22 04:30 INR 0.94 (0.87-1.13) 04/13/22 04:30 APTT 35.7 Sec. (24.2-36.6) 04/07/22 03:51 ABG pH 7.345 pH Units (7.350-7.450) L 04/17/22 09:15 ABG pCO2 90.3 mm Hg 04/17/22 09:15 ABG pO2 81.4 mm Hg (80.0-90.0) 04/17/22 09:15 ABG HCO3 48.2 mmol/L (20.0-26.0) H 04/17/22 09:15 ABG O2 Saturation 97.4 % (95.0-99.0) 04/17/22 09:15 ABG O2 Content 13.1 (0.0-44) 04/17/22 09:15 ABG Base Excess 19.2 mmol/L (-2.0-3.0) H 04/17/22 09:15 ABG Hemoglobin 9.7 gm/dl (14.0-18.0) L 04/17/22 09:15 ABG Carboxyhemoglobin 1.1 % (0.0-5.0) 04/17/22 09:15 ABG Methemoglobin 0.3 % (0.0-1.5) 04/17/22 09:15 Oxyhemoglobin 95.9 % (95.0-99.0) 04/17/22 09:15 FiO2 60 % 04/17/22 09:15 Sodium 141 mmol/L (137-145) 04/19/22 04:08 Potassium 4.6 mmol/L (3.6-5.0) 04/19/22 04:08 Chloride 96.2 mmol/L (98-107) L 04/19/22 04:08 Carbon Dioxide 40 mmol/L (22-30) H 04/19/22 04:08 Anion Gap 9 mmol/L 04/19/22 04:08 BUN 24 mg/dL (9-20) H 04/19/22 04:08 Creatinine < 0.2 mg/dL (0.8-1.3) L 04/19/22 04:08 Estimated GFR > 60 ml/min 04/19/22 04:08 BUN/Creatinine Ratio 120 % 04/19/22 04:08 Glucose 125 mg/dL (75-100) H 04/19/22 04:08 POC Glucose 128 mg/dL (70-105) H 04/18/22 17:35 Lactic Acid 1.90 mmol/L (0.7-2.0) 04/02/22 19:39 Calcium 8.3 mg/dL (8.4-10.2) L 04/19/22 04:08 Phosphorus 2.50 mg/dL (2.5-4.5) 04/17/22 04:36 Magnesium 2.10 mg/dL (1.7-2.3) 04/17/22 04:36 Total Bilirubin 0.80 mg/dL (0.1-1.2) 04/02/22 19:39 AST 15 units/L (5-40) 04/02/22 19:39 ALT 9 units/L (7-56) 04/02/22 19:39 Alkaline Phosphatase 43 units/L (35-129) 04/02/22 19:39 Total Creatine Kinase 46 units/L (55-170) L 04/08/22 17:47 CK-MB (CK-2) 2.6 ng/mL (0.0-4.0) 04/08/22 17:47 CK-MB (CK-2) Rel Index 5.6 (0-4) H 04/08/22 17:47 Troponin T 0.031 ng/mL (0.00-0.029) H 04/08/22 17:47 C-Reactive Protein 31.60 mg/dL (0.00-1.30) H 04/04/22 04:18 Total Protein 4.6 g/dL (6.3-8.2) L 04/02/22 19:39 Albumin 2.7 g/dL (3.9-5) L 04/02/22 19:39 Albumin/Globulin Ratio 1.4 % 04/02/22 19:39 Triglycerides 80 mg/dL (2-149) 04/02/22 19:39 Cholesterol 94 mg/dL (50-199) 04/02/22 19:39 LDL Cholesterol Direct 27 mg/dL (50-130) L 04/02/22 19:39 HDL Cholesterol 47 mg/dL (40-59) 04/02/22 19:39 Cholesterol/HDL Ratio 2.00 % 04/02/22 19:39 Procalcitonin 0.08 ng/mL (<0.15) 04/04/22 04:18 Urine Color Aracely (Yellow) 04/05/22 17:45 Urine Turbidity Cloudy (Clear) 04/05/22 17:45 Urine pH 5.0 (5.0-7.0) 04/05/22 17:45 Ur Specific [place] 1.021 (1.003-1.030) 04/05/22 17:45 Urine Protein 30 mg/dl mg/dL (Negative) 04/05/22 17:45 Urine Glucose (UA) Neg mg/dL (Negative) 04/05/22 17:45 Urine Ketones Tr mg/dL (Negative) 04/05/22 17:45 Urine Blood Sm (Negative) 04/05/22 17:45 Urine Nitrite Neg (Negative) 04/05/22 17:45 Urine Bilirubin Neg (Negative) 04/05/22 17:45 Urine Urobilinogen < 2.0 mg/dL (<2.0) 04/05/22 17:45 Ur Leukocyte Esterase Tr (Negative) 04/05/22 17:45 Urine WBC (Auto) 8.0 /HPF (0.0-6.0) H 04/05/22 17:45 Urine RBC (Auto) 3.0 /HPF (0.0-6.0) 04/05/22 17:45 U Epithel Cells (Auto) 2.0 /HPF (0-13.0) 04/05/22 17:45 Urine Bacteria (Auto) 1+ /HPF (Negative) 04/02/22 Unknown Hyaline Casts 1 /LPF 04/05/22 17:45 Urine Mucus 3+ /HPF 04/05/22 17:45 Nasal Screen MRSA (PCR) Negative (Negative) 04/05/22 12:37 Vancomycin Trough 6.0 ug/mL (5.0-20.0) 04/05/22 18:53 Coronavirus (PCR) Negative (Negative) 04/07/22 14:52 Microbiology: Microbiology 04/15/22 17:57 Bronchial Washings - Right Middle Lobe Respiratory Culture - Final Pseudomonas Aeruginosa Perez/IV: Voiding Method Condom Catheter Active Medications - Current Medications Current Medications: Generic Name Dose Route Start Last Admin Trade Name Freq PRN Reason Stop Dose Admin Acetaminophen 650 mg 04/02/22 23:53 04/16/22 12:16 Acetaminophen 325 Mg Tab PO 650 mg Q6H PRN Administration Pain MILD(1-3)/Fever >100.5/FAITH Acetylcysteine 200 mg 04/15/22 10:00 04/18/22 23:05 Acetylcysteine 10% 100 Mg/1 Ml *For Inhalation Use* INHALATION 200 mg Q8HRT SEGUNDO Administration Albuterol 2.5 mg 04/06/22 16:00 04/18/22 23:05 Albuterol 2.5 Mg/3 Ml Nebu IH 2.5 mg Q8HRT SEGUNDO Administration Bisacodyl 10 mg 04/07/22 09:44 04/12/22 10:06 Bisacodyl 10 Mg Rect Supp TX 10 mg QDAY PRN Administration Constipation Dextrose 50 ml 04/06/22 17:54 Dextrose 50% In Water (25gm) 50 Ml Syringe IV Q30MIN PRN Hypoglycemia Protocol Docusate Sodium 100 mg 04/03/22 15:00 04/18/22 21:28 Docusate Sodium 100 Mg/10 Ml Oral Liqd PO 100 mg BID SEGUNDO Administration Famotidine 20 mg 04/06/22 10:00 04/18/22 21:28 Famotidine 20 Mg Tab FEEDTUBE 20 mg BID SEGUNDO Administration Fentanyl 50 mcg 04/04/22 15:56 04/16/22 13:31 Fentanyl 100 Mcg/2 Ml Inj IV 50 mcg Q2HR PRN Administration For CPOT of greater than 3 Fentanyl 100 mcg 04/15/22 18:00 04/15/22 17:12 Fentanyl 100 Mcg/2 Ml Inj IV 100 mcg ONCE SEGUNDO Administration Heparin Sodium (Porcine) 5,000 unit 04/03/22 06:00 04/19/22 05:30 Heparin 5,000 Unit/1 Ml Vial SUB-Q 5,000 unit Q8HR SEGUNDO Administration Dexmedetomidine HCl 400 mcg/ 104 mls @ 2.434 mls/hr 04/03/22 07:00 04/14/22 14:55 Sodium Chloride IV 0 mcg/kg/hr TITRATE SEGUNDO 0 mls/hr Titration Protocol 0.2 MCG/KG/HR Cefepime HCl 1 gm in 100 mls @ 200 mls/hr 04/15/22 21:00 04/19/22 05:30 Cefepime/Ns 1 Gm/100 Ml IV 04/19/22 20:59 200 mls/hr Q8H SEGUNDO Administration Protocol Sodium Chloride 250 mls @ 999 mls/hr 04/15/22 17:50 Nacl 0.9% 250ml IV ONCE SEGUNDO Insulin Human Regular 0 units 04/06/22 18:00 04/19/22 06:00 Insulin Regular, Human 100 Units/1 Ml SUB-Q Not Given Q6H [facility] Protocol Magnesium Hydroxide 30 ml 04/02/22 23:53 Magnesium Hydroxide (Mom) Oral Liqd Udc PO Q4H PRN Constipation Metoprolol Tartrate 25 mg 04/16/22 18:00 04/19/22 05:29 Metoprolol Tartrate 25 Mg Tab FEEDTUBE 25 mg Q6HR SEGUNDO Administration Midazolam HCl 4 mg 04/15/22 18:00 04/15/22 17:15 Midazolam 5 Mg/5 Ml Inj Mdv IV 4 mg ONCE SEGUNDO Administration Ondansetron HCl 4 mg 04/02/22 23:53 Ondansetron 4 Mg/2 Ml Inj IV Q8H PRN Nausea And Vomiting Polyethylene Glycol 17 gm 04/08/22 10:00 04/18/22 10:40 Polyethylene Glycol 3350 17 Gm Powder PO 17 gm QDAY SEGUNDO Administration Quetiapine Fumarate 50 mg 04/12/22 14:01 04/18/22 21:28 Quetiapine 25 Mg Tab PO 50 mg QHS SEGUNDO Administration Quetiapine Fumarate 100 mg 04/18/22 06:00 04/19/22 05:30 Quetiapine 100 Mg Tab PO 100 mg 0600,1600 SEGUNDO Administration Senna 17.6 mg 04/03/22 22:00 04/18/22 21:28 Sennosides Oral Liqd 8.8 Mg/5 Ml Oral Liqd PO 17.6 mg Q12HR SEGUNDO Administration Sodium Chloride 10 ml 04/03/22 10:00 04/18/22 21:30 Sodium Chloride 0.9% 10 Ml Flush Syringe IV 10 ml BID SEGUNDO Administration Sodium Chloride 10 ml 04/02/22 23:53 Sodium Chloride 0.9% 10 Ml Flush Syringe IV PRN PRN LINE FLUSH Nutrition/Malnutrition Assess - Dietary Evaluation Nutrition/Malnutrition Findings: Nutrition Notes Start: 04/04/22 13:13 Freq: Status: Active Protocol: Document 04/13/22 12:41 COLLEEN (Rec: 04/13/22 13:09 COLLEEN [id number]) Nutrition Notes Initial or Follow up Reassessment Current Diagnosis Coronary Artery Disease, Respiratory Failure, Malnutrition Other Pertinent Diagnosis HCAP, HFpEF, ALS, Pleural Effusion, R-Lung Collapse, Hypotension, ... Current Diet NPO (since 04/13 00:01). Labs/Tests 04/13: Cl 93.9, CO2 39, Crea < 0.2, Phos 1.9. Pertinent Medications 04/13: Nutritionally unremarkable. Height 5 ft 4.8 in Weight 46.8 kg [place] Body Weight (kg) 61.27 BMI 17.2 Weight change and time frame No body weight change reported in 9 days. Weight Status Underweight Subjective/Other Information RD consult for routine F/U on TF tolerance/continuation. Pt currently on NPO. Pt is on Mechanical ventilation, O2 saturation @ 96%, according to Physical Assessment Histroy notes. Pt is awake and tracking, but unable to follow simple commands, according to Progress notes. Procedure planned for 04/13: Trach/PEG, but with moderate to high risk of associated cardiac event, according to Progress notes. Pt to be placed on LTAC facility after procedure. Percent of energy/protein needs met: Pt currently on NPO. Prescribed TF-Vital AF 1.2 Inderjit @ 50 ml/hr provides for energy/protein needs (1,450 Kcal/91 g) during LOS, 98% Kcal; 100% AA. Burn Absent Trauma Absent GI Symptoms Constipation Difficulty In Swallowing,Chewing Food Allergy No Skin Integrity/Comment Sacral skin tear. Current % PO Other Minimum of two criteria No #1 Nutrition Diagnosis Inadequate oral intake Comments: Procedure planned for 04/13: Trach/PEG, but with moderate to high risk of associated cardiac event, according to Progress notes. Diagnosis Progress(for reassessment Continues documentation) Is patient on ventilator? Yes Is Patient Ambulatory and/or Out of Bed No REE-([place]-[facility] Jeor-confined to bed) [phone] [facility]culation [facility] Additional Notes Protein: 1.2-2 g/Kg IBW; 73- 122 g/day. Fluids: 1 ml/Kcal, or as per MD. Nutrition Intervention Nutrition Support: When pertinent, resume TF- Vital AF 1.2 Inderjit @ 50 ml/hr. Flush: 80 ml water Q 4 hr, or as per MD. Kcal 1,450 Protein (gm) 91 Carbohydrates (gm) 134 Fat (gm) 65 Fluid (mL) 980 Fiber (gm) 6 % RDI: 98% Kcal; 100% AA. Goal #1 Provide at least 75% of energy /protein needs through Enteral Feeding during LOS. Goal #2 Maintain body weight within +/ -3% of admission body weight during LOS. Follow-Up By: 04/20/22 Additional Comments When pertinent, continue monitoring TF tolerance and BM .
--- NOTE | 2022-04-18 13:19 | Progress Note ---
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 Right lung hemiopacification- Atelectasis s/p Bronchoscopy Oropharyngeal dysphagia s/p PEG Protein calorie malnutrition Acute Bronchopneumonia HCAP Hypotension NSTEMI H/o Amyotrophic Lateral Sclerosis Nonverbal at Baseline Thrombocytopenia Trach care, airway clearance, Continue with medical management of atelectasis- continue with bronchodilators and chest PT Still on high PEEP and FIO2, will wean down to PEEP 8, FIO2 55% Follow up ABG in the morning -Titrate supplemental oxygen to keep SpO2 89-92% -VAP bundle addressed, aspiration precautions HOB >40 -Lung protective strategies -Daily assessment for readiness to wean. -Monitoring renal function, hemodynamics and electrolyte profile -Accuchecks with glycemic control. target blood glucose 140-180 mg/dL. Avoid hypoglycemia -Continue enteric nutritional support, bowel regimen -VTE prophylaxis- Heparin -Avoid nephrotoxins and renally dose all medications -Stress ulcer prophylaxis- Famotidine -Mobility, frequent turning, off loading per facility protocol to prevent pressure ulcers -Maintain sleep wake cycle, avoid benzodiazepines. -Limit delirium CONDITION:CRITICAL PROGNOSIS: GUARDED CODE STATUS; FULL CODE The high probability of a clinically significant, sudden or life threatening deterioration of the respiratory, cardiovascular, neurology system required my full and direct attention, intervention and personal management. The aggregate critical care time was [33] minutes. 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 Vitals, labs, medications, chart and imaging reviewed. Discussed with respiratory and nursing care staff. s/p trach and PEG. On PEEP 10 and FIO2 60 % Right lung on imaging remains expanded No reported fevers, blood pressure acceptable range. Objective Vital Signs - 12hr 04/18/22 04/18/22 04/18/22 01:30 02:00 03:00 Temperature Pulse Rate 106 H 95 H 106 H Pulse Rate [ Anterior Bilateral Throughout] Pulse Rate [ From Monitor] Respiratory 15 15 Rate Respiratory Rate [Anterior Bilateral Throughout] Blood Pressure 113/64 118/72 O2 Sat by Pulse 100 90 93 Oximetry O2 Sat by Pulse Oximetry [ Assessment] 04/18/22 04/18/22 04/18/22 03:51 04:00 04:05 Temperature 97.6 F 98.1 F Pulse Rate 106 H 98 H Pulse Rate [ Anterior Bilateral Throughout] Pulse Rate [ From Monitor] Respiratory 14 Rate Respiratory Rate [Anterior Bilateral Throughout] Blood Pressure 119/68 O2 Sat by Pulse 100 91 Oximetry O2 Sat by Pulse Oximetry [ Assessment] 04/18/22 04/18/22 04/18/22 04:48 05:00 05:09 Temperature Pulse Rate 93 H 93 H 96 H Pulse Rate [ Anterior Bilateral Throughout] Pulse Rate [ From Monitor] Respiratory 14 Rate Respiratory Rate [Anterior Bilateral Throughout] Blood Pressure 112/67 116/68 116/68 O2 Sat by Pulse 96 94 Oximetry O2 Sat by Pulse Oximetry [ Assessment] 04/18/22 04/18/22 04/18/22 05:25 05:26 06:00 Temperature Pulse Rate 96 H 90 Pulse Rate [ Anterior Bilateral Throughout] Pulse Rate [ From Monitor] Respiratory 14 Rate Respiratory Rate [Anterior Bilateral Throughout] Blood Pressure 125/73 O2 Sat by Pulse 100 Oximetry O2 Sat by Pulse Oximetry [ Assessment] 04/18/22 04/18/22 04/18/22 07:00 07:26 07:57 Temperature Pulse Rate 86 89 Pulse Rate [ 90 Anterior Bilateral Throughout] Pulse Rate [ From Monitor] Respiratory 14 Rate Respiratory 15 Rate [Anterior Bilateral Throughout] Blood Pressure 114/61 114/66 O2 Sat by Pulse 93 97 Oximetry O2 Sat by Pulse Oximetry [ Assessment] 04/18/22 04/18/22 04/18/22 08:00 09:00 10:00 Temperature 97.8 F Pulse Rate 94 H 102 H 92 H Pulse Rate [ Anterior Bilateral Throughout] Pulse Rate [ 94 H From Monitor] Respiratory 17 19 17 Rate Respiratory Rate [Anterior Bilateral Throughout] Blood Pressure 127/73 134/77 126/75 O2 Sat by Pulse 89 93 Oximetry O2 Sat by Pulse Oximetry [ Assessment] 04/18/22 04/18/22 04/18/22 11:00 11:20 11:58 Temperature Pulse Rate 97 H 92 H 93 H Pulse Rate [ Anterior Bilateral Throughout] Pulse Rate [ From Monitor] Respiratory 15 Rate Respiratory Rate [Anterior Bilateral Throughout] Blood Pressure 132/75 138/75 132/76 O2 Sat by Pulse 93 93 Oximetry O2 Sat by Pulse Oximetry [ Assessment] 04/18/22 12:10 Temperature Pulse Rate Pulse Rate [ Anterior Bilateral Throughout] Pulse Rate [ From Monitor] Respiratory Rate Respiratory Rate [Anterior Bilateral Throughout] Blood Pressure O2 Sat by Pulse Oximetry O2 Sat by Pulse 100 Oximetry [ Assessment] Constitutional: alert, appears uncomfortable, other (trach to MVS in bed with mildly increased respiratory effort at rest) Eyes: non-icteric ENT: oropharynx moist Neck: supple, no lymphadenopathy, no JVD, other (RIJ CVL) Effort: mildly labored Ascultation: Bilateral: diminished breath sounds (R>L base), rhonchi (basilar predominant) Percussion: Bilateral: not dull Cardiovascular: regular rate and rhythm, other (S1,S2) Gastrointestinal: normoactive bowel sounds, soft, non-tender, non-distended, other (PEG) Integumentary: normal Extremities: no cyanosis, no edema, pink and warm, pulses normal Neurologic: pupils equal and round, other (functional quadriplegia) Psychiatric: anxious CBC and BMP: 04/19/22 04:08 04/19/22 04:08 ABG, PT/INR, D-dimer: ABG ABG pH 7.345 pH Units (7.350-7.450) L 04/17/22 09:15 ABG pCO2 90.3 mm Hg 04/17/22 09:15 ABG pO2 81.4 mm Hg (80.0-90.0) 04/17/22 09:15 ABG O2 Saturation 97.4 % (95.0-99.0) 04/17/22 09:15 PT/INR, D-dimer PT 13.6 Sec. (12.2-14.9) 04/13/22 04:30 INR 0.94 (0.87-1.13) 04/13/22 04:30 Abnormal lab findings: Abnormal Labs 04/02/22 04/02/22 04/02/22 19:39 19:39 19:39 WBC 14.3 H RBC Hgb Hct MCV 96 H Plt Count 104 L Lymph % (Auto) [place] % (Auto) Lymph # (Auto) [place] # (Auto) Seg Neutrophils % Seg Neuts % (Manual) 94.0 H Lymphocytes % (Manual) 1.0 L Seg Neutrophils # Seg Neutrophils # Man 13.4 H Lymphocytes # (Manual) 0.1 L PT 15.9 H INR 1.14 H ABG pH ABG pO2 ABG HCO3 ABG O2 Saturation ABG Base Excess ABG Hemoglobin Oxyhemoglobin Sodium 151 H Potassium Chloride Carbon Dioxide BUN Creatinine 0.5 L Glucose POC Glucose Calcium 8.2 L Phosphorus Magnesium 1.60 L Total Creatine Kinase CK-MB (CK-2) Rel Index Troponin T 0.048 H C-Reactive Protein Total Protein 4.6 L Albumin 2.7 L LDL Cholesterol Direct 27 L Urine WBC (Auto) 04/02/22 04/03/22 04/03/22 19:42 05:14 06:30 WBC RBC Hgb Hct MCV Plt Count Lymph % (Auto) [place] % (Auto) Lymph # (Auto) [place] # (Auto) Seg Neutrophils % Seg Neuts % (Manual) Lymphocytes % (Manual) Seg Neutrophils # Seg Neutrophils # Man Lymphocytes # (Manual) PT INR ABG pH 7.471 H 7.496 H ABG pO2 47.8 L 91.0 H ABG HCO3 30.6 H ABG O2 Saturation 94.4 L ABG Base Excess 6.2 H ABG Hemoglobin 11.0 L 12.8 L Oxyhemoglobin 93.1 L Sodium 149 H Potassium 3.4 L Chloride Carbon Dioxide BUN Creatinine 0.4 L Glucose POC Glucose Calcium Phosphorus Magnesium Total Creatine Kinase CK-MB (CK-2) Rel Index Troponin T C-Reactive Protein Total Protein Albumin LDL Cholesterol Direct Urine WBC (Auto) 04/04/22 04/04/22 04/04/22 04:18 04:18 05:50 WBC 11.8 H RBC Hgb Hct MCV Plt Count 132 L Lymph % (Auto) [place] % (Auto) Lymph # (Auto) [place] # (Auto) Seg Neutrophils % Seg Neuts % (Manual) Lymphocytes % (Manual) Seg Neutrophils # Seg Neutrophils # Man Lymphocytes # (Manual) PT INR ABG pH 7.517 H ABG pO2 115.5 H ABG HCO3 29.9 H ABG O2 Saturation ABG Base Excess 6.7 H ABG Hemoglobin 12.3 L Oxyhemoglobin Sodium Potassium 3.5 L Chloride Carbon Dioxide 31 H BUN Creatinine 0.3 L Glucose 153 H POC Glucose Calcium Phosphorus 1.40 L Magnesium 1.50 L Total Creatine Kinase CK-MB (CK-2) Rel Index Troponin T C-Reactive Protein 31.60 H Total Protein Albumin LDL Cholesterol Direct Urine WBC (Auto) 04/05/22 04/05/22 04/05/22 02:50 05:25 11:28 WBC RBC Hgb Hct MCV Plt Count Lymph % (Auto) [place] % (Auto) Lymph # (Auto) [place] # (Auto) Seg Neutrophils % Seg Neuts % (Manual) Lymphocytes % (Manual) Seg Neutrophils # Seg Neutrophils # Man Lymphocytes # (Manual) PT INR ABG pH 7.455 H ABG pO2 50.7 L ABG HCO3 30.5 H ABG O2 Saturation 89.4 L ABG Base Excess 5.9 H ABG Hemoglobin 11.8 L Oxyhemoglobin 88.2 L Sodium Potassium Chloride Carbon Dioxide 32 H BUN Creatinine 0.2 L Glucose 110 H POC Glucose 124 H Calcium 7.9 L Phosphorus Magnesium Total Creatine Kinase CK-MB (CK-2) Rel Index Troponin T C-Reactive Protein Total Protein Albumin LDL Cholesterol Direct Urine WBC (Auto) 04/05/22 04/05/22 04/06/22 17:45 Unknown 04:00 WBC RBC 3.55 L Hgb 11.1 L 11.5 L Hct 33.2 L 35.1 L MCV Plt Count 113 L 114 L Lymph % (Auto) [place] % (Auto) Lymph # (Auto) [place] # (Auto) Seg Neutrophils % Seg Neuts % (Manual) Lymphocytes % (Manual) Seg Neutrophils # Seg Neutrophils # Man Lymphocytes # (Manual) PT INR ABG pH ABG pO2 ABG HCO3 ABG O2 Saturation ABG Base Excess ABG Hemoglobin Oxyhemoglobin Sodium Potassium Chloride Carbon Dioxide BUN Creatinine Glucose POC Glucose Calcium Phosphorus Magnesium Total Creatine Kinase CK-MB (CK-2) Rel Index Troponin T C-Reactive Protein Total Protein Albumin LDL Cholesterol Direct Urine WBC (Auto) 8.0 H 04/06/22 04/06/22 04/07/22 04:00 08:30 00:04 WBC RBC Hgb Hct MCV Plt Count Lymph % (Auto) [place] % (Auto) Lymph # (Auto) [place] # (Auto) Seg Neutrophils % Seg Neuts % (Manual) Lymphocytes % (Manual) Seg Neutrophils # Seg Neutrophils # Man Lymphocytes # (Manual) PT INR ABG pH ABG pO2 60.8 L ABG HCO3 30.5 H ABG O2 Saturation 93.3 L ABG Base Excess 4.9 H ABG Hemoglobin 12.4 L Oxyhemoglobin 92.1 L Sodium Potassium 3.0 L Chloride Carbon Dioxide BUN Creatinine < 0.2 L Glucose 130 H POC Glucose 117 H Calcium 8.1 L Phosphorus Magnesium Total Creatine Kinase CK-MB (CK-2) Rel Index Troponin T C-Reactive Protein Total Protein Albumin LDL Cholesterol Direct Urine WBC (Auto) 04/07/22 04/07/22 04/07/22 03:51 03:51 03:51 WBC 14.6 H RBC 3.57 L Hgb 11.1 L Hct 33.2 L MCV Plt Count 118 L Lymph % (Auto) 4.3 L [place] % (Auto) 8.8 H Lymph # (Auto) 0.6 L [place] # (Auto) 1.3 H Seg Neutrophils % 86.6 H Seg Neuts % (Manual) Lymphocytes % (Manual) Seg Neutrophils # 12.7 H Seg Neutrophils # Man Lymphocytes # (Manual) PT 15.2 H INR ABG pH ABG pO2 ABG HCO3 ABG O2 Saturation ABG Base Excess ABG Hemoglobin Oxyhemoglobin Sodium 133 L Potassium Chloride 96.0 L Carbon Dioxide 31 H BUN Creatinine 0.2 L Glucose 130 H POC Glucose Calcium 8.0 L Phosphorus Magnesium Total Creatine Kinase CK-MB (CK-2) Rel Index Troponin T C-Reactive Protein Total Protein Albumin LDL Cholesterol Direct Urine WBC (Auto) 04/07/22 04/07/22 04/08/22 04:25 09:10 04:49 WBC 16.1 H RBC 3.54 L Hgb 10.9 L Hct 33.3 L MCV Plt Count Lymph % (Auto) [place] % (Auto) Lymph # (Auto) [place] # (Auto) Seg Neutrophils % Seg Neuts % (Manual) Lymphocytes % (Manual) Seg Neutrophils # Seg Neutrophils # Man Lymphocytes # (Manual) PT INR ABG pH ABG pO2 71.0 L 63.4 L ABG HCO3 31.5 H 40.0 H ABG O2 Saturation 94.9 L ABG Base Excess 5.9 H 13.6 H ABG Hemoglobin 11.3 L 9.0 L Oxyhemoglobin 93.6 L Sodium Potassium Chloride Carbon Dioxide BUN Creatinine Glucose POC Glucose Calcium Phosphorus Magnesium Total Creatine Kinase CK-MB (CK-2) Rel Index Troponin T C-Reactive Protein Total Protein Albumin LDL Cholesterol Direct Urine WBC (Auto) 04/08/22 04/08/22 04/08/22 04:49 09:53 10:25 WBC RBC Hgb Hct MCV Plt Count Lymph % (Auto) [place] % (Auto) Lymph # (Auto) [place] # (Auto) Seg Neutrophils % Seg Neuts % (Manual) Lymphocytes % (Manual) Seg Neutrophils # Seg Neutrophils # Man Lymphocytes # (Manual) PT INR ABG pH ABG pO2 ABG HCO3 34.7 H ABG O2 Saturation ABG Base Excess 7.9 H ABG Hemoglobin 11.0 L Oxyhemoglobin Sodium 136 L Potassium Chloride 97.7 L Carbon Dioxide 33 H BUN Creatinine 0.2 L Glucose 155 H POC Glucose Calcium Phosphorus Magnesium Total Creatine Kinase CK-MB (CK-2) Rel Index Troponin T 0.030 H C-Reactive Protein Total Protein Albumin LDL Cholesterol Direct Urine WBC (Auto) 04/08/22 04/08/22 04/08/22 11:19 17:47 18:06 WBC RBC Hgb Hct MCV Plt Count Lymph % (Auto) [place] % (Auto) Lymph # (Auto) [place] # (Auto) Seg Neutrophils % Seg Neuts % (Manual) Lymphocytes % (Manual) Seg Neutrophils # Seg Neutrophils # Man Lymphocytes # (Manual) PT INR ABG pH ABG pO2 ABG HCO3 ABG O2 Saturation ABG Base Excess ABG Hemoglobin Oxyhemoglobin Sodium Potassium Chloride Carbon Dioxide BUN Creatinine Glucose POC Glucose 121 H Calcium Phosphorus Magnesium Total Creatine Kinase 31 L 46 L CK-MB (CK-2) Rel Index 6.4 H 5.6 H Troponin T 0.030 H 0.031 H C-Reactive Protein Total Protein Albumin LDL Cholesterol Direct Urine WBC (Auto) 04/09/22 04/09/22 04/09/22 04:35 04:35 11:24 WBC 11.5 H RBC 3.16 L Hgb 9.9 L Hct 29.4 L MCV Plt Count 131 L Lymph % (Auto) [place] % (Auto) Lymph # (Auto) [place] # (Auto) Seg Neutrophils % Seg Neuts % (Manual) Lymphocytes % (Manual) Seg Neutrophils # Seg Neutrophils # Man Lymphocytes # (Manual) PT INR ABG pH ABG pO2 ABG HCO3 ABG O2 Saturation ABG Base Excess ABG Hemoglobin Oxyhemoglobin Sodium Potassium Chloride 97.1 L Carbon Dioxide 35 H BUN Creatinine < 0.2 L Glucose 145 H POC Glucose 147 H Calcium Phosphorus Magnesium Total Creatine Kinase CK-MB (CK-2) Rel Index Troponin T C-Reactive Protein Total Protein Albumin LDL Cholesterol Direct Urine WBC (Auto) 04/09/22 04/09/22 04/09/22 13:00 17:32 23:48 WBC RBC Hgb Hct MCV Plt Count Lymph % (Auto) [place] % (Auto) Lymph # (Auto) [place] # (Auto) Seg Neutrophils % Seg Neuts % (Manual) Lymphocytes % (Manual) Seg Neutrophils # Seg Neutrophils # Man Lymphocytes # (Manual) PT INR ABG pH ABG pO2 66.6 L ABG HCO3 38.2 H ABG O2 Saturation 94.4 L ABG Base Excess 10.7 H ABG Hemoglobin 10.7 L Oxyhemoglobin 92.8 L Sodium Potassium Chloride Carbon Dioxide BUN Creatinine Glucose POC Glucose 143 H 114 H Calcium Phosphorus Magnesium Total Creatine Kinase CK-MB (CK-2) Rel Index Troponin T C-Reactive Protein Total Protein Albumin LDL Cholesterol Direct Urine WBC (Auto) 04/10/22 04/10/22 04/10/22 04:48 04:48 05:34 WBC RBC 2.91 L Hgb 9.1 L Hct 27.7 L MCV 95 H Plt Count Lymph % (Auto) [place] % (Auto) Lymph # (Auto) [place] # (Auto) Seg Neutrophils % Seg Neuts % (Manual) Lymphocytes % (Manual) Seg Neutrophils # Seg Neutrophils # Man Lymphocytes # (Manual) PT INR ABG pH ABG pO2 ABG HCO3 ABG O2 Saturation ABG Base Excess ABG Hemoglobin Oxyhemoglobin Sodium Potassium Chloride 95.7 L Carbon Dioxide 38 H BUN Creatinine < 0.2 L Glucose 118 H POC Glucose 127 H Calcium Phosphorus Magnesium Total Creatine Kinase CK-MB (CK-2) Rel Index Troponin T C-Reactive Protein Total Protein Albumin LDL Cholesterol Direct Urine WBC (Auto) 04/10/22 04/11/22 04/11/22 23:10 04:15 04:15 WBC 17.2 H RBC 2.98 L Hgb 9.2 L Hct 27.9 L MCV Plt Count Lymph % (Auto) [place] % (Auto) Lymph # (Auto) [place] # (Auto) Seg Neutrophils % Seg Neuts % (Manual) Lymphocytes % (Manual) Seg Neutrophils # Seg Neutrophils # Man Lymphocytes # (Manual) PT INR ABG pH ABG pO2 ABG HCO3 ABG O2 Saturation ABG Base Excess ABG Hemoglobin Oxyhemoglobin Sodium Potassium Chloride 96.1 L Carbon Dioxide 35 H BUN Creatinine < 0.2 L Glucose 138 H POC Glucose 106 H Calcium 8.3 L Phosphorus Magnesium Total Creatine Kinase CK-MB (CK-2) Rel Index Troponin T C-Reactive Protein Total Protein Albumin LDL Cholesterol Direct Urine WBC (Auto) 04/11/22 04/11/22 04/11/22 05:31 13:18 16:20 WBC RBC Hgb Hct MCV Plt Count Lymph % (Auto) [place] % (Auto) Lymph # (Auto) [place] # (Auto) Seg Neutrophils % Seg Neuts % (Manual) Lymphocytes % (Manual) Seg Neutrophils # Seg Neutrophils # Man Lymphocytes # (Manual) PT INR ABG pH ABG pO2 57.8 L ABG HCO3 40.5 H ABG O2 Saturation 90.6 L ABG Base Excess 12.6 H ABG Hemoglobin 10.5 L Oxyhemoglobin 89.0 L Sodium Potassium Chloride Carbon Dioxide BUN Creatinine Glucose POC Glucose 129 H 132 H Calcium Phosphorus Magnesium Total Creatine Kinase CK-MB (CK-2) Rel Index Troponin T C-Reactive Protein Total Protein Albumin LDL Cholesterol Direct Urine WBC (Auto) 04/11/22 04/11/22 04/12/22 17:29 23:17 04:00 WBC 17.4 H RBC 2.96 L Hgb 9.0 L Hct 28.0 L MCV 95 H Plt Count Lymph % (Auto) [place] % (Auto) Lymph # (Auto) [place] # (Auto) Seg Neutrophils % Seg Neuts % (Manual) Lymphocytes % (Manual) Seg Neutrophils # Seg Neutrophils # Man Lymphocytes # (Manual) PT INR ABG pH ABG pO2 ABG HCO3 ABG O2 Saturation ABG Base Excess ABG Hemoglobin Oxyhemoglobin Sodium Potassium Chloride Carbon Dioxide BUN Creatinine Glucose POC Glucose 125 H 151 H Calcium Phosphorus Magnesium Total Creatine Kinase CK-MB (CK-2) Rel Index Troponin T C-Reactive Protein Total Protein Albumin LDL Cholesterol Direct Urine WBC (Auto) 04/12/22 04/12/22 04/12/22 04:00 17:03 23:39 WBC RBC Hgb Hct MCV Plt Count Lymph % (Auto) [place] % (Auto) Lymph # (Auto) [place] # (Auto) Seg Neutrophils % Seg Neuts % (Manual) Lymphocytes % (Manual) Seg Neutrophils # Seg Neutrophils # Man Lymphocytes # (Manual) PT INR ABG pH ABG pO2 ABG HCO3 ABG O2 Saturation ABG Base Excess ABG Hemoglobin Oxyhemoglobin Sodium Potassium Chloride 97.4 L Carbon Dioxide 37 H BUN Creatinine < 0.2 L Glucose 127 H POC Glucose 106 H 107 H Calcium Phosphorus Magnesium Total Creatine Kinase CK-MB (CK-2) Rel Index Troponin T C-Reactive Protein Total Protein Albumin LDL Cholesterol Direct Urine WBC (Auto) 04/13/22 04/13/22 04/13/22 04:30 04:30 17:39 WBC 14.1 H RBC 2.66 L Hgb 8.4 L Hct 25.5 L MCV 96 H Plt Count Lymph % (Auto) [place] % (Auto) Lymph # (Auto) [place] # (Auto) Seg Neutrophils % Seg Neuts % (Manual) Lymphocytes % (Manual) Seg Neutrophils # Seg Neutrophils # Man Lymphocytes # (Manual) PT INR ABG pH ABG pO2 ABG HCO3 ABG O2 Saturation ABG Base Excess ABG Hemoglobin Oxyhemoglobin Sodium Potassium Chloride 93.9 L Carbon Dioxide 39 H BUN Creatinine < 0.2 L Glucose POC Glucose 134 H Calcium Phosphorus 1.90 L Magnesium Total Creatine Kinase CK-MB (CK-2) Rel Index Troponin T C-Reactive Protein Total Protein Albumin LDL Cholesterol Direct Urine WBC (Auto) 04/14/22 04/14/22 04/14/22 05:03 05:03 09:10 WBC 15.6 H RBC 3.02 L Hgb 9.3 L Hct 28.8 L MCV 95 H Plt Count Lymph % (Auto) [place] % (Auto) Lymph # (Auto) [place] # (Auto) Seg Neutrophils % Seg Neuts % (Manual) Lymphocytes % (Manual) Seg Neutrophils # Seg Neutrophils # Man Lymphocytes # (Manual) PT INR ABG pH ABG pO2 66.9 L ABG HCO3 44.5 H ABG O2 Saturation ABG Base Excess 17.2 H ABG Hemoglobin 8.1 L Oxyhemoglobin 94.8 L Sodium Potassium Chloride 93.8 L Carbon Dioxide 42 H* BUN Creatinine < 0.2 L Glucose 117 H POC Glucose Calcium Phosphorus Magnesium Total Creatine Kinase CK-MB (CK-2) Rel Index Troponin T C-Reactive Protein Total Protein Albumin LDL Cholesterol Direct Urine WBC (Auto) 04/15/22 04/15/22 04/16/22 04:44 04:44 04:16 WBC 13.0 H 12.6 H RBC 3.19 L 3.09 L Hgb 9.6 L 9.5 L Hct 30.2 L 29.1 L MCV 95 H Plt Count 456 H Lymph % (Auto) [place] % (Auto) Lymph # (Auto) [place] # (Auto) Seg Neutrophils % Seg Neuts % (Manual) Lymphocytes % (Manual) Seg Neutrophils # Seg Neutrophils # Man Lymphocytes # (Manual) PT INR ABG pH ABG pO2 ABG HCO3 ABG O2 Saturation ABG Base Excess ABG Hemoglobin Oxyhemoglobin Sodium Potassium Chloride 95.5 L Carbon Dioxide 37 H BUN Creatinine < 0.2 L Glucose POC Glucose Calcium Phosphorus Magnesium Total Creatine Kinase CK-MB (CK-2) Rel Index Troponin T C-Reactive Protein Total Protein Albumin LDL Cholesterol Direct Urine WBC (Auto) 04/16/22 04/16/22 04/16/22 04:16 05:00 14:00 WBC RBC Hgb Hct MCV Plt Count Lymph % (Auto) [place] % (Auto) Lymph # (Auto) [place] # (Auto) Seg Neutrophils % Seg Neuts % (Manual) Lymphocytes % (Manual) Seg Neutrophils # Seg Neutrophils # Man Lymphocytes # (Manual) PT INR ABG pH 7.324 L ABG pO2 55.6 L ABG HCO3 45.3 H ABG O2 Saturation 87.1 L ABG Base Excess 16.6 H ABG Hemoglobin 8.6 L Oxyhemoglobin 85.7 L Sodium Potassium Chloride 97.6 L Carbon Dioxide 36 H BUN Creatinine < 0.2 L Glucose 109 H POC Glucose 120 H Calcium Phosphorus Magnesium Total Creatine Kinase CK-MB (CK-2) Rel Index Troponin T C-Reactive Protein Total Protein Albumin LDL Cholesterol Direct Urine WBC (Auto) 04/17/22 04/17/22 04/17/22 04:36 04:36 04:57 WBC 14.4 H RBC 3.08 L Hgb 9.4 L Hct 29.0 L MCV Plt Count Lymph % (Auto) [place] % (Auto) Lymph # (Auto) [place] # (Auto) Seg Neutrophils % Seg Neuts % (Manual) Lymphocytes % (Manual) Seg Neutrophils # Seg Neutrophils # Man Lymphocytes # (Manual) PT INR ABG pH ABG pO2 ABG HCO3 ABG O2 Saturation ABG Base Excess ABG Hemoglobin Oxyhemoglobin Sodium Potassium Chloride 95.9 L Carbon Dioxide 39 H BUN Creatinine < 0.2 L Glucose 140 H POC Glucose 137 H Calcium 8.3 L Phosphorus Magnesium Total Creatine Kinase CK-MB (CK-2) Rel Index Troponin T C-Reactive Protein Total Protein Albumin LDL Cholesterol Direct Urine WBC (Auto) 04/17/22 04/17/22 04/18/22 09:15 18:01 04:20 WBC 11.2 H RBC 3.00 L Hgb 9.3 L Hct 28.6 L MCV 95 H Plt Count Lymph % (Auto) [place] % (Auto) Lymph # (Auto) [place] # (Auto) Seg Neutrophils % Seg Neuts % (Manual) Lymphocytes % (Manual) Seg Neutrophils # Seg Neutrophils # Man Lymphocytes # (Manual) PT INR ABG pH 7.345 L ABG pO2 ABG HCO3 48.2 H ABG O2 Saturation ABG Base Excess 19.2 H ABG Hemoglobin 9.7 L Oxyhemoglobin Sodium Potassium Chloride Carbon Dioxide BUN Creatinine Glucose POC Glucose 129 H Calcium Phosphorus Magnesium Total Creatine Kinase CK-MB (CK-2) Rel Index Troponin T C-Reactive Protein Total Protein Albumin LDL Cholesterol Direct Urine WBC (Auto) 04/18/22 04:20 WBC RBC Hgb Hct MCV Plt Count Lymph % (Auto) [place] % (Auto) Lymph # (Auto) [place] # (Auto) Seg Neutrophils % Seg Neuts % (Manual) Lymphocytes % (Manual) Seg Neutrophils # Seg Neutrophils # Man Lymphocytes # (Manual) PT INR ABG pH ABG pO2 ABG HCO3 ABG O2 Saturation ABG Base Excess ABG Hemoglobin Oxyhemoglobin Sodium Potassium Chloride 96.8 L Carbon Dioxide 43 H* BUN 22 H Creatinine < 0.2 L Glucose 137 H POC Glucose Calcium 8.2 L Phosphorus Magnesium Total Creatine Kinase CK-MB (CK-2) Rel Index Troponin T C-Reactive Protein Total Protein Albumin LDL Cholesterol Direct Urine WBC (Auto) Chest x-ray: image reviewed Allied health notes reviewed: RT
[2022-04-18] MEDS: QUEtiapine 25 MG TAB PO SCH (21:28)
[2022-04-19] MEDS: METOPROLOL TARTRATE 25 MG TAB FEEDTUBE SCH ×4 (00:47→18:33)
--- NOTE | 2022-04-19 03:52 | XRay Report ---
CHEST 1 VIEW INDICATION / CLINICAL INFORMATION: Follow Up respiratory Failure. COMPARISON: Chest x-ray 04/16/2022 FINDINGS: SUPPORT DEVICES: Tracheostomy tube is stable. HEART / MEDIASTINUM: Stable interval appearance of the cardiomediastinal silhouette. LUNGS / PLEURA: Worsening opacities left lung base with interval partial clearing of right lung base opacities. BONES: No significant interval findings. ADDITIONAL FINDINGS: No significant additional findings. IMPRESSION: 1. Interval partial clearing of the lower right lung. Worsening atelectasis and/or dependent pleural fluid left chest. Signer Name: Trae Mcfarland II, MD Signed: 04/19/2022 3:48 AM Workstation Name: [id number]
[2022-04-19 04:45] LABS: Hematocrit 30.1 % (35.5-45.6); Hemoglobin 9.8 gm/dl (11.8-15.2); Mean Corpuscular HGB Conc 32 % (32-34); Mean Corpuscular Volume 95 fl (84-94); Red Blood Count 3.18 M/mm3 (3.65-5.03); Red Cell Distribution Width 13.8 % (13.2-15.2)
[2022-04-19 04:46] LABS: Platelet Count 425 K/mm3 (140-440)
[2022-04-19 04:54] LABS: Blood Urea Nitrogen 24 mg/dL (9-20); Calcium 8.3 mg/dL (8.4-10.2); Hemolysis Index 28
[2022-04-19 04:56] LABS: BUN/Creatinine Ratio 120
[2022-04-19] MEDS: HEPARIN 5,000 UNIT/1 ML VIAL SUB-Q SCH ×3 (05:30→22:01)
[2022-04-19] MEDS: QUEtiapine 100 MG TAB PO SCH ×2 (05:30→15:17)
[2022-04-19] MEDS: CEFEPIME/NS 1 GM/100 ML 1 GM/100 ML BAG IV SCH ×2 (05:30→12:02)
[2022-04-19] MEDS: INSULIN REGULAR, HUMAN 100 UNITS/1 ML SUB-Q SCH ×4 (06:00→18:32)
[2022-04-19] MEDS: ALBUTEROL 2.5 MG/3 ML NEBU IH SCH ×3 (08:40→23:53)
--- NOTE | 2022-04-19 09:00 | Progress Note ---
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 Right lung hemiopacification- Atelectasis s/p Bronchoscopy Oropharyngeal dysphagia s/p PEG Protein calorie malnutrition Acute Bronchopneumonia HCAP Hypotension NSTEMI H/o Amyotrophic Lateral Sclerosis Nonverbal at Baseline Thrombocytopenia Trach care, airway clearance, Continue with medical management of atelectasis Can stop Mucomyst but continue with bronchodilators and chest PT ABG this morning- acceptable range, has compensated respiratory acidosis Discharge planning to LTACH -Titrate supplemental oxygen to keep SpO2 89-92% -VAP bundle addressed, aspiration precautions HOB >40 -Lung protective strategies, -CXR as clinically indicated -Daily assessment for readiness to wean. -Monitoring renal function, hemodynamics and electrolyte profile -Replete electrolytes as clinically indicated -Accuchecks with glycemic control. target blood glucose 140-180 mg/dL. Avoid hypoglycemia -Continue enteric nutritional support, bowel regimen -VTE prophylaxis- Heparin -Avoid nephrotoxins and renally dose all medications -Stress ulcer prophylaxis- Famotidine -Mobility, frequent turning, off loading per facility protocol to prevent pressure ulcers -Maintain sleep wake cycle, avoid benzodiazepines. -Limit delirium CONDITION:CRITICAL PROGNOSIS: GUARDED CODE STATUS; FULL CODE The high probability of a clinically significant, sudden or life threatening deterioration of the respiratory, cardiovascular, neurology system required my full and direct attention, intervention and personal management. The aggregate critical care time was [33] minutes. This time is in addition to time spent performing reported procedures but includes the following: [x] Data Review and interpretation [x] Patient assessment and monitoring of vital signs [x] Documentation [x] Medication orders and management Subjective Date of service: 04/19/22 Principal diagnosis: Ac and ch hypercapnic and hypoxemic Resp Failure; ALS; HCAP; Sepsis; NSTEMI Interval history: Follow up for : Acute and chronic Respiratory Failure with Hypoxia and Hypercapnia 2/2 ALS;Protein calorie malnutrition;Acute Bronchopneumonia; HCAP; Hypotension; NSTEMI; Hypernatremia; Acute Metabolic Encephalopathy; H/o Amyotrophic Lateral Sclerosis Patient seen and examined. Vitals, labs, medications, chart and imaging reviewed. Discussed with respiratory and nursing care staff. s/p trach and PEG. On PEEP 8 and FIO2 55% Right lung on imaging remains expanded No reported fevers, blood pressure acceptable range. Objective Vital Signs - 12hr 04/18/22 04/18/22 04/18/22 21:00 22:00 23:00 Temperature Pulse Rate 85 91 H 99 H Pulse Rate [ Anterior Bilateral Throughout] Pulse Rate [ From Monitor] Respiratory 14 17 14 Rate Respiratory Rate [Anterior Bilateral Throughout] Blood Pressure 110/64 110/73 122/73 O2 Sat by Pulse 94 87 90 Oximetry O2 Sat by Pulse Oximetry [ Assessment] 04/18/22 04/18/22 04/18/22 23:06 23:08 23:17 Temperature Pulse Rate 105 H 108 H Pulse Rate [ 107 H Anterior Bilateral Throughout] Pulse Rate [ From Monitor] Respiratory 15 Rate Respiratory 18 Rate [Anterior Bilateral Throughout] Blood Pressure 122/73 122/78 O2 Sat by Pulse 90 89 Oximetry O2 Sat by Pulse Oximetry [ Assessment] 04/19/22 04/19/22 04/19/22 00:00 00:47 01:00 Temperature 98.2 F Pulse Rate 107 H 110 H 97 H Pulse Rate [ Anterior Bilateral Throughout] Pulse Rate [ 107 H From Monitor] Respiratory 15 14 Rate Respiratory Rate [Anterior Bilateral Throughout] Blood Pressure 129/76 122/75 115/73 O2 Sat by Pulse 92 94 Oximetry O2 Sat by Pulse 95 Oximetry [ Assessment] 04/19/22 04/19/22 04/19/22 02:00 03:00 04:00 Temperature 98.9 F Pulse Rate 86 88 98 H Pulse Rate [ Anterior Bilateral Throughout] Pulse Rate [ 98 H From Monitor] Respiratory 14 16 17 Rate Respiratory Rate [Anterior Bilateral Throughout] Blood Pressure 119/69 126/66 136/76 O2 Sat by Pulse 93 92 92 Oximetry O2 Sat by Pulse Oximetry [ Assessment] 04/19/22 04/19/22 04/19/22 04:35 05:00 05:29 Temperature Pulse Rate 94 H 96 H 97 H Pulse Rate [ Anterior Bilateral Throughout] Pulse Rate [ From Monitor] Respiratory 18 Rate Respiratory Rate [Anterior Bilateral Throughout] Blood Pressure 127/74 132/72 138/74 O2 Sat by Pulse 93 91 Oximetry O2 Sat by Pulse Oximetry [ Assessment] 04/19/22 04/19/22 04/19/22 06:00 07:00 08:34 Temperature Pulse Rate 96 H 94 H 94 H Pulse Rate [ Anterior Bilateral Throughout] Pulse Rate [ From Monitor] Respiratory 15 14 Rate Respiratory Rate [Anterior Bilateral Throughout] Blood Pressure 114/65 114/70 114/70 O2 Sat by Pulse 92 94 92 Oximetry O2 Sat by Pulse Oximetry [ Assessment] Constitutional: alert, appears uncomfortable, other (trach to MVS in bed with mildly increased respiratory effort at rest) Eyes: non-icteric ENT: oropharynx moist Neck: supple, no lymphadenopathy, no JVD, other (RIJ CVL) Effort: mildly labored Ascultation: Bilateral: diminished breath sounds (R>L base), rhonchi (basilar predominant) Percussion: Bilateral: not dull Cardiovascular: regular rate and rhythm, other (S1,S2) Gastrointestinal: normoactive bowel sounds, soft, non-tender, non-distended, other (PEG) Integumentary: normal Extremities: no cyanosis, no edema, pink and warm, pulses normal Neurologic: pupils equal and round, other (functional quadriplegia) Psychiatric: anxious CBC and BMP: 04/19/22 04:08 04/19/22 04:08 ABG, PT/INR, D-dimer: ABG ABG pH 7.345 pH Units (7.350-7.450) L 04/17/22 09:15 ABG pCO2 90.3 mm Hg 04/17/22 09:15 ABG pO2 81.4 mm Hg (80.0-90.0) 04/17/22 09:15 ABG O2 Saturation 97.4 % (95.0-99.0) 04/17/22 09:15 PT/INR, D-dimer PT 13.6 Sec. (12.2-14.9) 04/13/22 04:30 INR 0.94 (0.87-1.13) 04/13/22 04:30 Abnormal lab findings: Abnormal Labs 04/02/22 04/02/22 04/02/22 19:39 19:39 19:39 WBC 14.3 H RBC Hgb Hct MCV 96 H Plt Count 104 L Lymph % (Auto) [place] % (Auto) Lymph # (Auto) [place] # (Auto) Seg Neutrophils % Seg Neuts % (Manual) 94.0 H Lymphocytes % (Manual) 1.0 L Seg Neutrophils # Seg Neutrophils # Man 13.4 H Lymphocytes # (Manual) 0.1 L PT 15.9 H INR 1.14 H ABG pH ABG pO2 ABG HCO3 ABG O2 Saturation ABG Base Excess ABG Hemoglobin Oxyhemoglobin Sodium 151 H Potassium Chloride Carbon Dioxide BUN Creatinine 0.5 L Glucose POC Glucose Calcium 8.2 L Phosphorus Magnesium 1.60 L Total Creatine Kinase CK-MB (CK-2) Rel Index Troponin T 0.048 H C-Reactive Protein Total Protein 4.6 L Albumin 2.7 L LDL Cholesterol Direct 27 L Urine WBC (Auto) 04/02/22 04/03/22 04/03/22 19:42 05:14 06:30 WBC RBC Hgb Hct MCV Plt Count Lymph % (Auto) [place] % (Auto) Lymph # (Auto) [place] # (Auto) Seg Neutrophils % Seg Neuts % (Manual) Lymphocytes % (Manual) Seg Neutrophils # Seg Neutrophils # Man Lymphocytes # (Manual) PT INR ABG pH 7.471 H 7.496 H ABG pO2 47.8 L 91.0 H ABG HCO3 30.6 H ABG O2 Saturation 94.4 L ABG Base Excess 6.2 H ABG Hemoglobin 11.0 L 12.8 L Oxyhemoglobin 93.1 L Sodium 149 H Potassium 3.4 L Chloride Carbon Dioxide BUN Creatinine 0.4 L Glucose POC Glucose Calcium Phosphorus Magnesium Total Creatine Kinase CK-MB (CK-2) Rel Index Troponin T C-Reactive Protein Total Protein Albumin LDL Cholesterol Direct Urine WBC (Auto) 04/04/22 04/04/22 04/04/22 04:18 04:18 05:50 WBC 11.8 H RBC Hgb Hct MCV Plt Count 132 L Lymph % (Auto) [place] % (Auto) Lymph # (Auto) [place] # (Auto) Seg Neutrophils % Seg Neuts % (Manual) Lymphocytes % (Manual) Seg Neutrophils # Seg Neutrophils # Man Lymphocytes # (Manual) PT INR ABG pH 7.517 H ABG pO2 115.5 H ABG HCO3 29.9 H ABG O2 Saturation ABG Base Excess 6.7 H ABG Hemoglobin 12.3 L Oxyhemoglobin Sodium Potassium 3.5 L Chloride Carbon Dioxide 31 H BUN Creatinine 0.3 L Glucose 153 H POC Glucose Calcium Phosphorus 1.40 L Magnesium 1.50 L Total Creatine Kinase CK-MB (CK-2) Rel Index Troponin T C-Reactive Protein 31.60 H Total Protein Albumin LDL Cholesterol Direct Urine WBC (Auto) 04/05/22 04/05/22 04/05/22 02:50 05:25 11:28 WBC RBC Hgb Hct MCV Plt Count Lymph % (Auto) [place] % (Auto) Lymph # (Auto) [place] # (Auto) Seg Neutrophils % Seg Neuts % (Manual) Lymphocytes % (Manual) Seg Neutrophils # Seg Neutrophils # Man Lymphocytes # (Manual) PT INR ABG pH 7.455 H ABG pO2 50.7 L ABG HCO3 30.5 H ABG O2 Saturation 89.4 L ABG Base Excess 5.9 H ABG Hemoglobin 11.8 L Oxyhemoglobin 88.2 L Sodium Potassium Chloride Carbon Dioxide 32 H BUN Creatinine 0.2 L Glucose 110 H POC Glucose 124 H Calcium 7.9 L Phosphorus Magnesium Total Creatine Kinase CK-MB (CK-2) Rel Index Troponin T C-Reactive Protein Total Protein Albumin LDL Cholesterol Direct Urine WBC (Auto) 04/05/22 04/05/22 04/06/22 17:45 Unknown 04:00 WBC RBC 3.55 L Hgb 11.1 L 11.5 L Hct 33.2 L 35.1 L MCV Plt Count 113 L 114 L Lymph % (Auto) [place] % (Auto) Lymph # (Auto) [place] # (Auto) Seg Neutrophils % Seg Neuts % (Manual) Lymphocytes % (Manual) Seg Neutrophils # Seg Neutrophils # Man Lymphocytes # (Manual) PT INR ABG pH ABG pO2 ABG HCO3 ABG O2 Saturation ABG Base Excess ABG Hemoglobin Oxyhemoglobin Sodium Potassium Chloride Carbon Dioxide BUN Creatinine Glucose POC Glucose Calcium Phosphorus Magnesium Total Creatine Kinase CK-MB (CK-2) Rel Index Troponin T C-Reactive Protein Total Protein Albumin LDL Cholesterol Direct Urine WBC (Auto) 8.0 H 04/06/22 04/06/22 04/07/22 04:00 08:30 00:04 WBC RBC Hgb Hct MCV Plt Count Lymph % (Auto) [place] % (Auto) Lymph # (Auto) [place] # (Auto) Seg Neutrophils % Seg Neuts % (Manual) Lymphocytes % (Manual) Seg Neutrophils # Seg Neutrophils # Man Lymphocytes # (Manual) PT INR ABG pH ABG pO2 60.8 L ABG HCO3 30.5 H ABG O2 Saturation 93.3 L ABG Base Excess 4.9 H ABG Hemoglobin 12.4 L Oxyhemoglobin 92.1 L Sodium Potassium 3.0 L Chloride Carbon Dioxide BUN Creatinine < 0.2 L Glucose 130 H POC Glucose 117 H Calcium 8.1 L Phosphorus Magnesium Total Creatine Kinase CK-MB (CK-2) Rel Index Troponin T C-Reactive Protein Total Protein Albumin LDL Cholesterol Direct Urine WBC (Auto) 04/07/22 04/07/22 04/07/22 03:51 03:51 03:51 WBC 14.6 H RBC 3.57 L Hgb 11.1 L Hct 33.2 L MCV Plt Count 118 L Lymph % (Auto) 4.3 L [place] % (Auto) 8.8 H Lymph # (Auto) 0.6 L [place] # (Auto) 1.3 H Seg Neutrophils % 86.6 H Seg Neuts % (Manual) Lymphocytes % (Manual) Seg Neutrophils # 12.7 H Seg Neutrophils # Man Lymphocytes # (Manual) PT 15.2 H INR ABG pH ABG pO2 ABG HCO3 ABG O2 Saturation ABG Base Excess ABG Hemoglobin Oxyhemoglobin Sodium 133 L Potassium Chloride 96.0 L Carbon Dioxide 31 H BUN Creatinine 0.2 L Glucose 130 H POC Glucose Calcium 8.0 L Phosphorus Magnesium Total Creatine Kinase CK-MB (CK-2) Rel Index Troponin T C-Reactive Protein Total Protein Albumin LDL Cholesterol Direct Urine WBC (Auto) 04/07/22 04/07/22 04/08/22 04:25 09:10 04:49 WBC 16.1 H RBC 3.54 L Hgb 10.9 L Hct 33.3 L MCV Plt Count Lymph % (Auto) [place] % (Auto) Lymph # (Auto) [place] # (Auto) Seg Neutrophils % Seg Neuts % (Manual) Lymphocytes % (Manual) Seg Neutrophils # Seg Neutrophils # Man Lymphocytes # (Manual) PT INR ABG pH ABG pO2 71.0 L 63.4 L ABG HCO3 31.5 H 40.0 H ABG O2 Saturation 94.9 L ABG Base Excess 5.9 H 13.6 H ABG Hemoglobin 11.3 L 9.0 L Oxyhemoglobin 93.6 L Sodium Potassium Chloride Carbon Dioxide BUN Creatinine Glucose POC Glucose Calcium Phosphorus Magnesium Total Creatine Kinase CK-MB (CK-2) Rel Index Troponin T C-Reactive Protein Total Protein Albumin LDL Cholesterol Direct Urine WBC (Auto) 04/08/22 04/08/22 04/08/22 04:49 09:53 10:25 WBC RBC Hgb Hct MCV Plt Count Lymph % (Auto) [place] % (Auto) Lymph # (Auto) [place] # (Auto) Seg Neutrophils % Seg Neuts % (Manual) Lymphocytes % (Manual) Seg Neutrophils # Seg Neutrophils # Man Lymphocytes # (Manual) PT INR ABG pH ABG pO2 ABG HCO3 34.7 H ABG O2 Saturation ABG Base Excess 7.9 H ABG Hemoglobin 11.0 L Oxyhemoglobin Sodium 136 L Potassium Chloride 97.7 L Carbon Dioxide 33 H BUN Creatinine 0.2 L Glucose 155 H POC Glucose Calcium Phosphorus Magnesium Total Creatine Kinase CK-MB (CK-2) Rel Index Troponin T 0.030 H C-Reactive Protein Total Protein Albumin LDL Cholesterol Direct Urine WBC (Auto) 04/08/22 04/08/22 04/08/22 11:19 17:47 18:06 WBC RBC Hgb Hct MCV Plt Count Lymph % (Auto) [place] % (Auto) Lymph # (Auto) [place] # (Auto) Seg Neutrophils % Seg Neuts % (Manual) Lymphocytes % (Manual) Seg Neutrophils # Seg Neutrophils # Man Lymphocytes # (Manual) PT INR ABG pH ABG pO2 ABG HCO3 ABG O2 Saturation ABG Base Excess ABG Hemoglobin Oxyhemoglobin Sodium Potassium Chloride Carbon Dioxide BUN Creatinine Glucose POC Glucose 121 H Calcium Phosphorus Magnesium Total Creatine Kinase 31 L 46 L CK-MB (CK-2) Rel Index 6.4 H 5.6 H Troponin T 0.030 H 0.031 H C-Reactive Protein Total Protein Albumin LDL Cholesterol Direct Urine WBC (Auto) 04/09/22 04/09/22 04/09/22 04:35 04:35 11:24 WBC 11.5 H RBC 3.16 L Hgb 9.9 L Hct 29.4 L MCV Plt Count 131 L Lymph % (Auto) [place] % (Auto) Lymph # (Auto) [place] # (Auto) Seg Neutrophils % Seg Neuts % (Manual) Lymphocytes % (Manual) Seg Neutrophils # Seg Neutrophils # Man Lymphocytes # (Manual) PT INR ABG pH ABG pO2 ABG HCO3 ABG O2 Saturation ABG Base Excess ABG Hemoglobin Oxyhemoglobin Sodium Potassium Chloride 97.1 L Carbon Dioxide 35 H BUN Creatinine < 0.2 L Glucose 145 H POC Glucose 147 H Calcium Phosphorus Magnesium Total Creatine Kinase CK-MB (CK-2) Rel Index Troponin T C-Reactive Protein Total Protein Albumin LDL Cholesterol Direct Urine WBC (Auto) 04/09/22 04/09/22 04/09/22 13:00 17:32 23:48 WBC RBC Hgb Hct MCV Plt Count Lymph % (Auto) [place] % (Auto) Lymph # (Auto) [place] # (Auto) Seg Neutrophils % Seg Neuts % (Manual) Lymphocytes % (Manual) Seg Neutrophils # Seg Neutrophils # Man Lymphocytes # (Manual) PT INR ABG pH ABG pO2 66.6 L ABG HCO3 38.2 H ABG O2 Saturation 94.4 L ABG Base Excess 10.7 H ABG Hemoglobin 10.7 L Oxyhemoglobin 92.8 L Sodium Potassium Chloride Carbon Dioxide BUN Creatinine Glucose POC Glucose 143 H 114 H Calcium Phosphorus Magnesium Total Creatine Kinase CK-MB (CK-2) Rel Index Troponin T C-Reactive Protein Total Protein Albumin LDL Cholesterol Direct Urine WBC (Auto) 04/10/22 04/10/22 04/10/22 04:48 04:48 05:34 WBC RBC 2.91 L Hgb 9.1 L Hct 27.7 L MCV 95 H Plt Count Lymph % (Auto) [place] % (Auto) Lymph # (Auto) [place] # (Auto) Seg Neutrophils % Seg Neuts % (Manual) Lymphocytes % (Manual) Seg Neutrophils # Seg Neutrophils # Man Lymphocytes # (Manual) PT INR ABG pH ABG pO2 ABG HCO3 ABG O2 Saturation ABG Base Excess ABG Hemoglobin Oxyhemoglobin Sodium Potassium Chloride 95.7 L Carbon Dioxide 38 H BUN Creatinine < 0.2 L Glucose 118 H POC Glucose 127 H Calcium Phosphorus Magnesium Total Creatine Kinase CK-MB (CK-2) Rel Index Troponin T C-Reactive Protein Total Protein Albumin LDL Cholesterol Direct Urine WBC (Auto) 04/10/22 04/11/22 04/11/22 23:10 04:15 04:15 WBC 17.2 H RBC 2.98 L Hgb 9.2 L Hct 27.9 L MCV Plt Count Lymph % (Auto) [place] % (Auto) Lymph # (Auto) [place] # (Auto) Seg Neutrophils % Seg Neuts % (Manual) Lymphocytes % (Manual) Seg Neutrophils # Seg Neutrophils # Man Lymphocytes # (Manual) PT INR ABG pH ABG pO2 ABG HCO3 ABG O2 Saturation ABG Base Excess ABG Hemoglobin Oxyhemoglobin Sodium Potassium Chloride 96.1 L Carbon Dioxide 35 H BUN Creatinine < 0.2 L Glucose 138 H POC Glucose 106 H Calcium 8.3 L Phosphorus Magnesium Total Creatine Kinase CK-MB (CK-2) Rel Index Troponin T C-Reactive Protein Total Protein Albumin LDL Cholesterol Direct Urine WBC (Auto) 04/11/22 04/11/2204/11/22 05:31 13:18 16:20 WBC RBC Hgb Hct MCV Plt Count Lymph % (Auto) [place] % (Auto) Lymph # (Auto) [place] # (Auto) Seg Neutrophils % Seg Neuts % (Manual) Lymphocytes % (Manual) Seg Neutrophils # Seg Neutrophils # Man Lymphocytes # (Manual) PT INR ABG pH ABG pO2 57.8 L ABG HCO3 40.5 H ABG O2 Saturation 90.6 L ABG Base Excess 12.6 H ABG Hemoglobin 10.5 L Oxyhemoglobin 89.0 L Sodium Potassium Chloride Carbon Dioxide BUN Creatinine Glucose POC Glucose 129 H 132 H Calcium Phosphorus Magnesium Total Creatine Kinase CK-MB (CK-2) Rel Index Troponin T C-Reactive Protein Total Protein Albumin LDL Cholesterol Direct Urine WBC (Auto) 04/11/22 04/11/22 04/12/22 17:29 23:17 04:00 WBC 17.4 H RBC 2.96 L Hgb 9.0 L Hct 28.0 L MCV 95 H Plt Count Lymph % (Auto) [place] % (Auto) Lymph # (Auto) [place] # (Auto) Seg Neutrophils % Seg Neuts % (Manual) Lymphocytes % (Manual) Seg Neutrophils # Seg Neutrophils # Man Lymphocytes # (Manual) PT INR ABG pH ABG pO2 ABG HCO3 ABG O2 Saturation ABG Base Excess ABG Hemoglobin Oxyhemoglobin Sodium Potassium Chloride Carbon Dioxide BUN Creatinine Glucose POC Glucose 125 H 151 H Calcium Phosphorus Magnesium Total Creatine Kinase CK-MB (CK-2) Rel Index Troponin T C-Reactive Protein Total Protein Albumin LDL Cholesterol Direct Urine WBC (Auto) 04/12/22 04/12/22 04/12/22 04:00 17:03 23:39 WBC RBC Hgb Hct MCV Plt Count Lymph % (Auto) [place] % (Auto) Lymph # (Auto) [place] # (Auto) Seg Neutrophils % Seg Neuts % (Manual) Lymphocytes % (Manual) Seg Neutrophils # Seg Neutrophils # Man Lymphocytes # (Manual) PT INR ABG pH ABG pO2 ABG HCO3 ABG O2 Saturation ABG Base Excess ABG Hemoglobin Oxyhemoglobin Sodium Potassium Chloride 97.4 L Carbon Dioxide 37 H BUN Creatinine < 0.2 L Glucose 127 H POC Glucose 106 H 107 H Calcium Phosphorus Magnesium Total Creatine Kinase CK-MB (CK-2) Rel Index Troponin T C-Reactive Protein Total Protein Albumin LDL Cholesterol Direct Urine WBC (Auto) 04/13/22 04/13/22 04/13/22 04:30 04:30 17:39 WBC 14.1 H RBC 2.66 L Hgb 8.4 L Hct 25.5 L MCV 96 H Plt Count Lymph % (Auto) [place] % (Auto) Lymph # (Auto) [place] # (Auto) Seg Neutrophils % Seg Neuts % (Manual) Lymphocytes % (Manual) Seg Neutrophils # Seg Neutrophils # Man Lymphocytes # (Manual) PT INR ABG pH ABG pO2 ABG HCO3 ABG O2 Saturation ABG Base Excess ABG Hemoglobin Oxyhemoglobin Sodium Potassium Chloride 93.9 L Carbon Dioxide 39 H BUN Creatinine < 0.2 L Glucose POC Glucose 134 H Calcium Phosphorus 1.90 L Magnesium Total Creatine Kinase CK-MB (CK-2) Rel Index Troponin T C-Reactive Protein Total Protein Albumin LDL Cholesterol Direct Urine WBC (Auto) 04/14/22 04/14/22 04/14/22 05:03 05:03 09:10 WBC 15.6 H RBC 3.02 L Hgb 9.3 L Hct 28.8 L MCV 95 H Plt Count Lymph % (Auto) [place] % (Auto) Lymph # (Auto) [place] # (Auto) Seg Neutrophils % Seg Neuts % (Manual) Lymphocytes % (Manual) Seg Neutrophils # Seg Neutrophils # Man Lymphocytes # (Manual) PT INR ABG pH ABG pO2 66.9 L ABG HCO3 44.5 H ABG O2 Saturation ABG Base Excess 17.2 H ABG Hemoglobin 8.1 L Oxyhemoglobin 94.8 L Sodium Potassium Chloride 93.8 L Carbon Dioxide 42 H* BUN Creatinine < 0.2 L Glucose 117 H POC Glucose Calcium Phosphorus Magnesium Total Creatine Kinase CK-MB (CK-2) Rel Index Troponin T C-Reactive Protein Total Protein Albumin LDL Cholesterol Direct Urine WBC (Auto) 04/15/22 04/15/22 04/16/22 04:44 04:44 04:16 WBC 13.0 H 12.6 H RBC 3.19 L 3.09 L Hgb 9.6 L 9.5 L Hct 30.2 L 29.1 L MCV 95 H Plt Count 456 H Lymph % (Auto) [place] % (Auto) Lymph # (Auto) [place] # (Auto) Seg Neutrophils % Seg Neuts % (Manual) Lymphocytes % (Manual) Seg Neutrophils # Seg Neutrophils # Man Lymphocytes # (Manual) PT INR ABG pH ABG pO2 ABG HCO3 ABG O2 Saturation ABG Base Excess ABG Hemoglobin Oxyhemoglobin Sodium Potassium Chloride 95.5 L Carbon Dioxide 37 H BUN Creatinine < 0.2 L Glucose POC Glucose Calcium Phosphorus Magnesium Total Creatine Kinase CK-MB (CK-2) Rel Index Troponin T C-Reactive Protein Total Protein Albumin LDL Cholesterol Direct Urine WBC (Auto) 04/16/22 04/16/22 04/16/22 04:16 05:00 14:00 WBC RBC Hgb Hct MCV Plt Count Lymph % (Auto) [place] % (Auto) Lymph # (Auto) [place] # (Auto) Seg Neutrophils % Seg Neuts % (Manual) Lymphocytes % (Manual) Seg Neutrophils # Seg Neutrophils # Man Lymphocytes # (Manual) PT INR ABG pH 7.324 L ABG pO2 55.6 L ABG HCO3 45.3 H ABG O2 Saturation 87.1 L ABG Base Excess 16.6 H ABG Hemoglobin 8.6 L Oxyhemoglobin 85.7 L Sodium Potassium Chloride 97.6 L Carbon Dioxide 36 H BUN Creatinine < 0.2 L Glucose 109 H POC Glucose 120 H Calcium Phosphorus Magnesium Total Creatine Kinase CK-MB (CK-2) Rel Index Troponin T C-Reactive Protein Total Protein Albumin LDL Cholesterol Direct Urine WBC (Auto) 04/17/22 04/17/22 04/17/22 04:36 04:36 04:57 WBC 14.4 H RBC 3.08 L Hgb 9.4 L Hct 29.0 L MCV Plt Count Lymph % (Auto) [place] % (Auto) Lymph # (Auto) [place] # (Auto) Seg Neutrophils % Seg Neuts % (Manual) Lymphocytes % (Manual) Seg Neutrophils # Seg Neutrophils # Man Lymphocytes # (Manual) PT INR ABG pH ABG pO2 ABG HCO3 ABG O2 Saturation ABG Base Excess ABG Hemoglobin Oxyhemoglobin Sodium Potassium Chloride 95.9 L Carbon Dioxide 39 H BUN Creatinine < 0.2 L Glucose 140 H POC Glucose 137 H Calcium 8.3 L Phosphorus Magnesium Total Creatine Kinase CK-MB (CK-2) Rel Index Troponin T C-Reactive Protein Total Protein Albumin LDL Cholesterol Direct Urine WBC (Auto) 04/17/22 04/17/22 04/18/22 09:15 18:01 04:20 WBC 11.2 H RBC 3.00 L Hgb 9.3 L Hct 28.6 L MCV 95 H Plt Count Lymph % (Auto) [place] % (Auto) Lymph # (Auto) [place] # (Auto) Seg Neutrophils % Seg Neuts % (Manual) Lymphocytes % (Manual) Seg Neutrophils # Seg Neutrophils # Man Lymphocytes # (Manual) PT INR ABG pH 7.345 L ABG pO2 ABG HCO3 48.2 H ABG O2 Saturation ABG Base Excess 19.2 H ABG Hemoglobin 9.7 L Oxyhemoglobin Sodium Potassium Chloride Carbon Dioxide BUN Creatinine Glucose POC Glucose 129 H Calcium Phosphorus Magnesium Total Creatine Kinase CK-MB (CK-2) Rel Index Troponin T C-Reactive Protein Total Protein Albumin LDL Cholesterol Direct Urine WBC (Auto) 04/18/22 04/18/22 04/19/22 04:20 17:35 04:08 WBC 16.8 H RBC 3.18 L Hgb 9.8 L Hct 30.1 L MCV 95 H Plt Count Lymph % (Auto) [place] % (Auto) Lymph # (Auto) [place] # (Auto) Seg Neutrophils % Seg Neuts % (Manual) Lymphocytes % (Manual) Seg Neutrophils # Seg Neutrophils # Man Lymphocytes # (Manual) PT INR ABG pH ABG pO2 ABG HCO3 ABG O2 Saturation ABG Base Excess ABG Hemoglobin Oxyhemoglobin Sodium Potassium Chloride 96.8 L Carbon Dioxide 43 H* BUN 22 H Creatinine < 0.2 L Glucose 137 H POC Glucose 128 H Calcium 8.2 L Phosphorus Magnesium Total Creatine Kinase CK-MB (CK-2) Rel Index Troponin T C-Reactive Protein Total Protein Albumin LDL Cholesterol Direct Urine WBC (Auto) 04/19/22 04:08 WBC RBC Hgb Hct MCV Plt Count Lymph % (Auto) [place] % (Auto) Lymph # (Auto) [place] # (Auto) Seg Neutrophils % Seg Neuts % (Manual) Lymphocytes % (Manual) Seg Neutrophils # Seg Neutrophils # Man Lymphocytes # (Manual) PT INR ABG pH ABG pO2 ABG HCO3 ABG O2 Saturation ABG Base Excess ABG Hemoglobin Oxyhemoglobin Sodium Potassium Chloride 96.2 L Carbon Dioxide 40 H BUN 24 H Creatinine < 0.2 L Glucose 125 H POC Glucose Calcium 8.3 L Phosphorus Magnesium Total Creatine Kinase CK-MB (CK-2) Rel Index Troponin T C-Reactive Protein Total Protein Albumin LDL Cholesterol Direct Urine WBC (Auto) Chest x-ray: image reviewed Allied health notes reviewed: RT
[2022-04-19 09:26] LABS: ABG Base Excess 20.1 mmol/L (-2.0-3.0); ABG HCO3 47.1 mmol/L (20.0-26.0); ABG Methemoglobin 0.3 % (0.0-1.5); ABG Oxygen Saturation 93.3 % (95.0-99.0); ABG PCO2 74.5 mm Hg; ABG PH 7.419 pH Units (7.350-7.450)
[2022-04-19] MEDS: SENNOSIDES ORAL LIQD 8.8 MG/5 ML ORAL LIQD PO SCH ×2 (09:43→22:01)
[2022-04-19] MEDS: POLYETHYLENE GLYCOL 3350 17 GM POWDER PO SCH (09:43)
[2022-04-19] MEDS: DOCUSATE SODIUM 100 MG/10 ML ORAL LIQD PO SCH ×2 (09:43→22:01)
[2022-04-19] MEDS: FAMOTIDINE 20 MG TAB FEEDTUBE SCH ×2 (09:43→22:02)
--- NOTE | 2022-04-19 10:54 | Progress Note ---
Assessment and Plan - Patient Problems (1) Respiratory failure Current Visit: Yes Status: Acute Plan to address problem: Patient presented with acute respiratory failure, with chest x-ray showing total whiteout of the right lung, due to acute pneumonia, large right pleural effusion and collapse of the right lung. Continue supportive management, antibiotics. (2) Acute coronary syndrome Current Visit: Yes Status: Acute Plan to address problem: The patient's interval ECGs while in the ICU showed dynamic changes of anterior wall ischemia or infarction. Patient has severe comorbidities including progressive total paralysis of ALS, and intercurrent respiratory failure with large right pleural effusion and total collapse of the right lung. Currently assessed as a poor candidate for aggressive cardiac management due to the multiple severe acute and chronic comorbidities. He has been placed on conservative, empiric coronary artery disease medical therapy. A trach PEG procedure has been completed, discharge planning for snf facility placement is in progress. Subjective Date of service: 04/19/22 Principal diagnosis: Ac and ch hypercapnic and hypoxemic Resp Failure; ALS; HCAP; Sepsis; NSTEMI Interval history: Patient is on the vent via trach, eyes open, no new cardiac events reported. Objective Vital Signs Temp Pulse Pulse Pulse Pulse Resp Resp 04/19/22 10:00 106 H 17 04/19/22 09:00 104 H 96 H 15 04/19/22 08:34 94 H 04/19/22 08:00 98.5 F 96 H 15 04/19/22 07:00 94 H 14 04/19/22 06:00 96 H 15 04/19/22 05:29 97 H 04/19/22 05:00 96 H 18 04/19/22 04:35 94 H 04/19/22 04:00 98.9 F 98 H 98 H 17 04/19/22 03:00 88 16 04/19/22 02:00 86 14 04/19/22 01:00 97 H 14 04/19/22 00:47 110 H 04/19/22 00:00 98.2 F 107 H 107 H 15 04/18/22 23:17 108 H 15 04/18/22 23:08 107 H 18 04/18/22 23:06 105 H 04/18/22 23:00 99 H 14 04/18/22 22:00 91 H 17 04/18/22 21:00 85 14 04/18/22 20:05 88 04/18/22 20:00 97.6 F 91 H 91 H 15 04/18/22 19:09 92 H 04/18/22 19:00 92 H 14 04/18/22 18:11 96 H 04/18/22 18:00 96 H 16 04/18/22 17:13 105 H 04/18/22 17:12 107 H 04/18/22 17:00 101 H 15 04/18/22 16:00 98 F 94 H 94 H 17 04/18/22 15:00 89 18 04/18/22 14:00 96 H 18 04/18/22 13:00 91 H 15 04/18/22 12:10 04/18/22 12:00 98.4 F 93 H 93 H 17 04/18/22 11:58 93 H 04/18/22 11:20 92 H 04/18/22 11:00 97 H 15 Resp BP Pulse Ox Pulse Ox 04/19/22 10:00 132/79 93 04/19/22 09:00 135/79 95 04/19/22 08:34 114/70 92 04/19/22 08:00 113/74 95 04/19/22 07:00 114/70 94 04/19/22 06:00 114/65 92 04/19/22 05:29 138/74 04/19/22 05:00 132/72 91 04/19/22 04:35 127/74 93 04/19/22 04:00 136/76 92 04/19/22 03:00 126/66 92 04/19/22 02:00 119/69 93 04/19/22 01:00 115/73 94 04/19/22 00:47 122/75 04/19/22 00:00 129/76 92 95 04/18/22 23:17 122/78 89 04/18/22 23:08 04/18/22 23:06 122/73 90 04/18/22 23:00 122/73 90 04/18/22 22:00 110/73 87 04/18/22 21:00 110/64 94 04/18/22 20:05 04/18/22 20:00 103/66 92 04/18/22 19:09 104/60 97 04/18/22 19:00 104/60 96 04/18/22 18:11 132/69 04/18/22 18:00 126/75 95 04/18/22 17:13 123/75 94 04/18/22 17:12 22 04/18/22 17:00 123/75 94 04/18/22 16:00 136/76 92 95 04/18/22 15:00 140/79 94 04/18/22 14:00 137/79 94 04/18/22 13:00 128/73 95 04/18/22 12:10 100 04/18/22 12:00 132/76 93 04/18/22 11:58 132/76 93 04/18/22 11:20 138/75 04/18/22 11:00 132/75 93 - Physical Examination General: Other (Awake, on the vent via a tracheostomy) HEENT: Positive: PERRL, Normocephaly, Other (ET-tube in place) Neck: Positive: neck supple, trachea midline (intubated). Negative: JVD/HJR Cardiac: Positive: Reg Rate and Rhythm Lungs: Positive: Decreased Breath Sounds Neuro: Positive: Other (Awake, on the vent via tracheostomy) Abdomen: Positive: Soft Skin: Positive: Clear Extremities: Present: Other (TR.EDEMA). Absent: edema (NO) - Labs and Meds CBC 04/19/22 Range/Units 04:08 WBC 16.8 H (4.5-11.0) K/mm3 RBC 3.18 L (3.65-5.03) M/mm3 Hgb 9.8 L (11.8-15.2) gm/dl Hct 30.1 L (35.5-45.6) % Plt Count 425 (140-440) K/mm3 Comprehensive Metabolic Panel 04/19/22 Range/Units 04:08 Sodium 141 (137-145) mmol/L Potassium 4.6 (3.6-5.0) mmol/L Chloride 96.2 L (98-107) mmol/L Carbon Dioxide 40 H (22-30) mmol/L BUN 24 H (9-20) mg/dL Creatinine < 0.2 L (0.8-1.3) mg/dL Glucose 125 H (75-100) mg/dL Calcium 8.3 L (8.4-10.2) mg/dL - Allied health notes Allied health notes reviewed: nursing
[2022-04-19] MEDS: ACETYLCYSTEINE 10% 100 MG/1 ML *FOR INHALATION USE INHALATION SCH (15:41)
--- NOTE | 2022-04-19 15:55 | Progress Note ---
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, recently hospitalized at [facility] admitted for acute hypoxemic respiratory failure 2/2 pneumonia Neuro: h/o ALS -s/p precedex, fentanyl gtt -Reorientation as needed -Maintain sleep-wake cycle -As needed analgesia -CT head with no acute intracranial process -Per family patient is nonverbal at baseline but responsive -Seroquel Cardiac: Suspect ischemic coronary artery disease, h/o cardiomyopathy -Cardiology consulted, appreciate recommendations -continue conservative management -Blood pressure monitoring per protocol -s/p Vasopressor support with Levophed -Echocardiogram shows ejection fraction of 40 to 45%, mild global hypokinesis of left ventricle -Nitro patch, BB Respiratory: Acute hypoxic respiratory failure -CCM consulted, appreciate recommendations -Intubated on 04/02 with a 7.50 ETT attempt at the lips -s/p trach on 04/14 -s/p bronch on 69 -A.m. vent settings: Assist-control/ PRVC TV 400, rate 14, Peep 8, FiO2 45% -See RT notes for titration -CPT and mucomyst -A.m. ABG and CXR noted -VAP bundle -SPO2 monitoring -Trach 04/15 GI: Moderate protein calorie malnutrition, constipation -24 hours +665 mL -PPI -Peg 04/15 -NTR consulted for tube feedings -BR: Senokot/colace, MiraLAX : Metabolic alkalosis -Strict intake and output -Renally dose medications -Avoid nephrotoxic medications -Daily weights -trend BMP ID: Sepsis, Acute Bronchopneumonia, HAP (Pseudomonas and Enterobacter tracheal aspirate), blood culture with bacillus species -Infectious disease consulted, appreciate recommendation -Per infectious disease patient was recently admitted to [facility] but discharged home with home hospice and not giving antibiotics -Antibiotic therapy with cefepime -Tracheal aspirate with Pseudomonas aeruginosa, Enterobacter aerogenes -04/02 blood culture with bacillus species, 04/05 blood culture NGTD -CRP 31.6, procalcitonin 0.08 -MRSA (-) -s/p cefepime for 14 days -Monitor WBC and temperature curve Endo: NAD -Avoid hypoglycemia -SSI -Accu-Cheks q 6 Heme: Leukocytosis -Heparin subq -Trend CBC -Transfuse hemoglobin less than 7 -SCDs to BLE while in bed Advance Care Planning - Disease education, care plan, diagnoses, and prognosis were discussed patient's , Carly Lopez, and patient daughter, Kaylee Warren, who translated for #[phone]. They reported that patient was following at [place] for his ALS and during recent hospitalization at [facility] they were told nothing else can be offered to patient at this time and patient was discharge home with home hospice and PO morphine. First hospice visit was on , 04/01 however, patient became unresponsive 04/02 and they brought in to the hospital. - Goal of care and code status were also addressed at that time. Family wants to wait for a couple days to see how patient respond to current treatment before making a decision. All questions and concerns were addressed at this time. Patient family acknowledged understanding and agreement with care plan. -Patient remains a FULL CODE status. -04/05: Discussion at bedside with interpreting service with Dr. Valdivia and family state they would discuss next steps amongst themselves and let healthcare team know of decisions -04/06: extensive discussion with family ( and son) with Dr. Grayson regarding goals of care -04/08: Extensive discussion with with the use of product safety consultant line regarding goals of care; no decision made. Possible consult to surgery for trach/PEG early next week. -04/09: Discussion with and her sister with Dr. Grayson and then with Dr. Pineda-> Consulted surgery for trach/peg -LTACH placement pending The high probability of a clinically significant, sudden or life threatening deterioration of the [multiple] system(s) required my full and direct attention, intervention and personal management. The aggregate critical care time was [60] minutes. 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 Work-up in the emergency department revealed leukocytosis, elevated troponin and hyponatremia and CXR revealed moderate to large pleural effusion on the right. Patient was having agonal breathing in the emergency department and was intubated. Patient was admitted to the hospitalist service with consults to [facility], cardiology and infectious disease for further work-up. Hospital Course to Date: 04/03: Intubated and Sedated on versed gtt, RASS-5. CT head/brain noted with no acute intracranial abnormality. Plan to initiated precededx gtt and wean off versed for a RASS goal of 0 to -2. CT chect also reviewed, findings are most consistent with acute bronchopneumonia. Continue empiric IV Abx, vent adjustment per [facility]. ID consulted. Continue to F/U on cultures. Titrate pressor for MAP above 65. Medical records requested from [facility]. 04/04: Remains stable on the vent, easily arousable on precedex gtt, not following commands. Plan for SAT/SBT today. PRN analgesia for CPOT greater than 3. Fevers improved, cultures and procal pending. Continue current IV abx, ID also consulted. Remains on low dose pressors, titrate pressors for a MAP above 65. 04/05: Long discussion with family with use of translation phone with [facility] regarding goals of care. Family to have meeting amongst themselves and informed care team of decisions. Fentanyl drip added for respiratory distress. Remains on Precedex drip. Antibiotics per ID. Given 2L NS bolus with levophed gtt 04/06: Family discussion with Dr. Grayson for goals of care. CXR shows possible mucus plug, continue CPT as FiO2 is being able to be weaned. Potassium repleted. Weaning fentnyl gtt. 04/07: Ultrasound guided thoracentesis today scheduled, inadequate amount of pleural effusion on so not completed. Patient was started on Levophed overnight which was weaned off this morning however had to be started twice a day. Remains on fentanyl and Precedex. Cardiology discontinued BB and ACEi in setting of hypotension. 04/08: COVID-19 PCR negative. Routine EEG ordered by cardiology which showed ST changes, cardiology aware. They will continue conservative treatment. Repeat troponins 0.030 which are less than admit of 0.048. Dr. Grayson had a long discussion with with the use of product safety consultant today at bedside and has not made a decision regarding goals of care. Possible consult to surgery for trach/PEG early next week. Continues to require Precedex and fentanyl drip for sedation. Carvedilol/lisinopril discontinued as patient is continuously on Levophed. 04/09: No acute events reported overnight, remains on fentanyl, Precedex and Levophed drips. Dr. Grayson and Dr. Pineda updated family at bedside extensively today. Consulted surgery for trach/PEG. COVID-19 PCR negative. 04/10: Patient noted to have desaturation episodes, FiO2 increased slightly to 35%. Will add Mucomyst. Remains on fentanyl and Precedex. Off of Levophed. Surgery consulted for trach/PEG. 04/11: FiO2 increased over night likely related to hypoxia, continues on fent gtt, weaning precedex gtt as he is also on Seroquel. Will d/w CCM re scheduled or prn oxycodone 04/12: Periods of hypoxia and tachycardia this am. Symptoms improved post deep suction and tracheal lavage, Repeat CXR noted with no significant change. Continue CPT and mucomyst. Plan for possible trach/PEG tomorrow by general surgery. 04/13: Remains stable on the vent. Patient is wake and tracking but does not follow simple commands. No report of hypoxia from overnight, continue CPT and mucomyst. Plan for track and PEG today by General Surgery. Plan for LTAC placement post procedure, case management to arrange. 04/14: VIRGILIO overnight, Trach and PEG postponed for today by general surgery. Plan for LTAC placement post procedure, case management to arrange. 04/15: S/p Trach and PEG. Up to 80% FiO2 this am, this am CXR noted suggesting possible mucus plug. D/W [facility] plan for bronch today. Continue CPT and mucomyst. Plan of care thoroughly discussed with patient's and son (who translated for ) at the bedside. Per , staple shear operator had already discussed the risks and benefits of the procedure yesterday. She verbalized understanding and agreed with procedure and current care plan, consent signed. Okay to use PEG-tube for meds this am, resume TF once okay by general Surgery. Case management to arrange LTAC placement. 04/16: s/p Bronchocopy by CCM. FiO2 down to 60%, angela 10 this am. This am CXR with moderate improvement. Continue CPT and mucomyst, wean Fio2 as tolerated for SPO2 above 92%. Patient is tolerating TF, advance to goal as ordered. Possible LTAC placement, case management to arrange. 04/17: VIRGILIO overnight. remains stable on the vent, recent CXR and this am ABG noted. Continue CPT and mucomyst, wean Fio2 as tolerated. 04/18: Remains stable on the vent, Fio2 down to 55% and peep of 8 this am. Continue to wean as tolerated, CPT, and mucomyst. Dsiposition- LTAC placement, case management to arrange. Hospitalist Physical - Constitutional Vitals: Temp Pulse Resp BP Pulse Ox 98.2 F 97 H 18 132/78 94 04/19/22 12:00 04/19/22 15:10 04/19/22 15:00 04/19/22 15:10 04/19/22 15:10 General appearance: Present: no acute distress, cachectic, other (Intubated, easily arousable on precedex and fentanyl gtts) - EENT Eyes: Present: PERRL, EOM intact ENT: hearing intact, poor dentition - Neck Neck: Present: normal ROM - Respiratory Respiratory effort: normal Respiratory: bilateral: diminished - Cardiovascular Rhythm: regular Heart Sounds: Present: S1 & S2. Absent: systolic murmur, diastolic murmur - Extremities Extremities: no ischemia, pulses intact, pulses symmetrical, normal temperature, normal color Peripheral Pulses: within normal limits - Abdominal General gastrointestinal: soft, non-tender, non-distended, normal bowel sounds - Integumentary Integumentary: Present: warm, dry - Psychiatric Psychiatric: cooperative - Neurologic Neurologic: other (intact cough/gag, track/focus) - Allied Health Allied health notes reviewed: nursing, RT, social work HEART Score - HEART Score Troponin: Troponin T 0.031 ng/mL (0.00-0.029) H 04/08/22 17:47 Results - Labs CBC & Chem 7: 04/19/22 04:08 04/19/22 04:08 Labs: Laboratory Last Values WBC 16.8 K/mm3 (4.5-11.0) H 04/19/22 04:08 RBC 3.18 M/mm3 (3.65-5.03) L 04/19/22 04:08 Hgb 9.8 gm/dl (11.8-15.2) L 04/19/22 04:08 Hct 30.1 % (35.5-45.6) L 04/19/22 04:08 MCV 95 fl (84-94) H 04/19/22 04:08 MCH 31 pg (28-32) 04/19/22 04:08 MCHC 32 % (32-34) 04/19/22 04:08 RDW 13.8 % (13.2-15.2) 04/19/22 04:08 Plt Count 425 K/mm3 (140-440) 04/19/22 04:08 Lymph % (Auto) 4.3 % (13.4-35.0) L 04/07/22 03:51 [place]urt[place] % (Auto) 8.8 % (0.0-7.3) H 04/07/22 03:51 Eos % (Auto) 0.1 % (0.0-4.3) 04/07/22 03:51 Baso % (Auto) 0.2 % (0.0-1.8) 04/07/22 03:51 Lymph # (Auto) 0.6 K/mm3 (1.2-5.4) L 04/07/22 03:51 [place]urt[place] # (Auto) 1.3 K/mm3 (0.0-0.8) H 04/07/22 03:51 Eos # (Auto) 0.0 K/mm3 (0.0-0.4) 04/07/22 03:51 Baso # (Auto) 0.0 K/mm3 (0.0-0.1) 04/07/22 03:51 Add Manual Diff Complete 04/02/22 19:39 Total Counted 100 04/02/22 19:39 Seg Neutrophils % 86.6 % (40.0-70.0) H 04/07/22 03:51 Seg Neuts % (Manual) 94.0 % (40.0-70.0) H 04/02/22 19:39 Band Neutrophils % 0 % 04/02/22 19:39 Lymphocytes % (Manual) 1.0 % (13.4-35.0) L 04/02/22 19:39 Reactive Lymphs % (Man) 0 % 04/02/22 19:39 Monocytes % (Manual) 5.0 % (0.0-7.3) 04/02/22 19:39 Eosinophils % (Manual) 0 % (0.0-4.3) 04/02/22 19:39 Basophils % (Manual) 0 % (0.0-1.8) 04/02/22 19:39 Metamyelocytes % 0 % 04/02/22 19:39 Myelocytes % 0 % 04/02/22 19:39 Promyelocytes % 0 % 04/02/22 19:39 Blast Cells % 0 % 04/02/22 19:39 Nucleated RBC % Not Reportable 04/02/22 19:39 Seg Neutrophils # 12.7 K/mm3 (1.8-7.7) H 04/07/22 03:51 Seg Neutrophils # Man 13.4 K/mm3 (1.8-7.7) H 04/02/22 19:39 Band Neutrophils # 0.0 K/mm3 04/02/22 19:39 Lymphocytes # (Manual) 0.1 K/mm3 (1.2-5.4) L 04/02/22 19:39 Abs React Lymphs (Man) 0.0 K/mm3 04/02/22 19:39 Monocytes # (Manual) 0.7 K/mm3 (0.0-0.8) 04/02/22 19:39 Eosinophils # (Manual) 0.0 K/mm3 (0.0-0.4) 04/02/22 19:39 Basophils # (Manual) 0.0 K/mm3 (0.0-0.1) 04/02/22 19:39 Metamyelocytes # 0.0 K/mm3 04/02/22 19:39 Myelocytes # 0.0 K/mm3 04/02/22 19:39 Promyelocytes # 0.0 K/mm3 04/02/22 19:39 Blast Cells # 0.0 K/mm3 04/02/22 19:39 WBC Morphology Not Reportable 04/02/22 19:39 Hypersegmented Neuts Not Reportable 04/02/22 19:39 Hyposegmented Neuts Not Reportable 04/02/22 19:39 Hypogranular Neuts Not Reportable 04/02/22 19:39 Smudge Cells Not Reportable 04/02/22 19:39 Toxic Granulation Not Reportable 04/02/22 19:39 Toxic Vacuolation Not Reportable 04/02/22 19:39 Dohle Bodies Not Reportable 04/02/22 19:39 Pelger-Huet Anomaly Not Reportable 04/02/22 19:39 Terry Rods Not Reportable 04/02/22 19:39 Platelet Estimate Consistent w auto 04/02/22 19:39 Clumped Platelets Not Reportable 04/02/22 19:39 Plt Clumps, EDTA Not Reportable 04/02/22 19:39 Large Platelets Not Reportable 04/02/22 19:39 Giant Platelets Not Reportable 04/02/22 19:39 Platelet Satelliting Not Reportable 04/02/22 19:39 Plt Morphology Comment Not Reportable 04/02/22 19:39 RBC Morphology Not Reportable 04/02/22 19:39 Dimorphic RBCs Not Reportable 04/02/22 19:39 Polychromasia Not Reportable 04/02/22 19:39 Hypochromasia Not Reportable 04/02/22 19:39 Poikilocytosis Not Reportable 04/02/22 19:39 Anisocytosis 1+ 04/02/22 19:39 Microcytosis Not Reportable 04/02/22 19:39 Macrocytosis Not Reportable 04/02/22 19:39 Spherocytes Not Reportable 04/02/22 19:39 Pappenheimer Bodies Not Reportable 04/02/22 19:39 Sickle Cells Not Reportable 04/02/22 19:39 Target Cells Not Reportable 04/02/22 19:39 Tear Drop Cells Not Reportable 04/02/22 19:39 Ovalocytes Not Reportable 04/02/22 19:39 Helmet Cells Not Reportable 04/02/22 19:39 Patricio-Halfway Bodies Not Reportable 04/02/22 19:39 Oreland Rings Not Reportable 04/02/22 19:39 Cheikh Cells Not Reportable 04/02/22 19:39 Bite Cells Not Reportable 04/02/22 19:39 Crenated Cell Not Reportable 04/02/22 19:39 Elliptocytes Not Reportable 04/02/22 19:39 Acanthocytes (Spur) Not Reportable 04/02/22 19:39 Rouleaux Not Reportable 04/02/22 19:39 Hemoglobin C Crystals Not Reportable 04/02/22 19:39 Schistocytes Not Reportable 04/02/22 19:39 Malaria parasites Not Reportable 04/02/22 19:39 Denton Bodies Not Reportable 04/02/22 19:39 Hem Pathologist Commnt No 04/02/22 19:39 PT 13.6 Sec. (12.2-14.9) 04/13/22 04:30 INR 0.94 (0.87-1.13) 04/13/22 04:30 APTT 35.7 Sec. (24.2-36.6) 04/07/22 03:51 ABG pH 7.419 pH Units (7.350-7.450) 04/19/22 08:50 ABG pCO2 74.5 mm Hg 04/19/22 08:50 ABG pO2 56.0 mm Hg (80.0-90.0) L 04/19/22 08:50 ABG HCO3 47.1 mmol/L (20.0-26.0) H 04/19/22 08:50 ABG O2 Saturation 93.3 % (95.0-99.0) L 04/19/22 08:50 ABG O2 Content 10.3 (0.0-44) 04/19/22 08:50 ABG Base Excess 20.1 mmol/L (-2.0-3.0) H 04/19/22 08:50 ABG Hemoglobin 8.0 gm/dl (14.0-18.0) L 04/19/22 08:50 ABG Carboxyhemoglobin 1.3 % (0.0-5.0) 04/19/22 08:50 ABG Methemoglobin 0.3 % (0.0-1.5) 04/19/22 08:50 Oxyhemoglobin 91.8 % (95.0-99.0) L 04/19/22 08:50 FiO2 55 % 04/19/22 08:50 Sodium 141 mmol/L (137-145) 04/19/22 04:08 Potassium 4.6 mmol/L (3.6-5.0) 04/19/22 04:08 Chloride 96.2 mmol/L (98-107) L 04/19/22 04:08 Carbon Dioxide 40 mmol/L (22-30) H 04/19/22 04:08 Anion Gap 9 mmol/L 04/19/22 04:08 BUN 24 mg/dL (9-20) H 04/19/22 04:08 Creatinine < 0.2 mg/dL (0.8-1.3) L 04/19/22 04:08 Estimated GFR > 60 ml/min 04/19/22 04:08 BUN/Creatinine Ratio 120 % 04/19/22 04:08 Glucose 125 mg/dL (75-100) H 04/19/22 04:08 POC Glucose 123 mg/dL (70-105) H 04/18/22 23:50 Lactic Acid 1.90 mmol/L (0.7-2.0) 04/02/22 19:39 Calcium 8.3 mg/dL (8.4-10.2) L 04/19/22 04:08 Phosphorus 2.50 mg/dL (2.5-4.5) 04/17/22 04:36 Magnesium 2.10 mg/dL (1.7-2.3) 04/17/22 04:36 Total Bilirubin 0.80 mg/dL (0.1-1.2) 04/02/22 19:39 AST 15 units/L (5-40) 04/02/22 19:39 ALT 9 units/L (7-56) 04/02/22 19:39 Alkaline Phosphatase 43 units/L (35-129) 04/02/22 19:39 Total Creatine Kinase 46 units/L (55-170) L 04/08/22 17:47 CK-MB (CK-2) 2.6 ng/mL (0.0-4.0) 04/08/22 17:47 CK-MB (CK-2) Rel Index 5.6 (0-4) H 04/08/22 17:47 Troponin T 0.031 ng/mL (0.00-0.029) H 04/08/22 17:47 C-Reactive Protein 31.60 mg/dL (0.00-1.30) H 04/04/22 04:18 Total Protein 4.6 g/dL (6.3-8.2) L 04/02/22 19:39 Albumin 2.7 g/dL (3.9-5) L 04/02/22 19:39 Albumin/Globulin Ratio 1.4 % 04/02/22 19:39 Triglycerides 80 mg/dL (2-149) 04/02/22 19:39 Cholesterol 94 mg/dL (50-199) 04/02/22 19:39 LDL Cholesterol Direct 27 mg/dL (50-130) L 04/02/22 19:39 HDL Cholesterol 47 mg/dL (40-59) 04/02/22 19:39 Cholesterol/HDL Ratio 2.00 % 04/02/22 19:39 Procalcitonin 0.08 ng/mL (<0.15) 04/04/22 04:18 Urine Color Aracely (Yellow) 04/05/22 17:45 Urine Turbidity Cloudy (Clear) 04/05/22 17:45 Urine pH 5.0 (5.0-7.0) 04/05/22 17:45 Ur Specific [place] 1.021 (1.003-1.030) 04/05/22 17:45 Urine Protein 30 mg/dl mg/dL (Negative) 04/05/22 17:45 Urine Glucose (UA) Neg mg/dL (Negative) 04/05/22 17:45 Urine Ketones Tr mg/dL (Negative) 04/05/22 17:45 Urine Blood Sm (Negative) 04/05/22 17:45 Urine Nitrite Neg (Negative) 04/05/22 17:45 Urine Bilirubin Neg (Negative) 04/05/22 17:45 Urine Urobilinogen < 2.0 mg/dL (<2.0) 04/05/22 17:45 Ur Leukocyte Esterase Tr (Negative) 04/05/22 17:45 Urine WBC (Auto) 8.0 /HPF (0.0-6.0) H 04/05/22 17:45 Urine RBC (Auto) 3.0 /HPF (0.0-6.0) 04/05/22 17:45 U Epithel Cells (Auto) 2.0 /HPF (0-13.0) 04/05/22 17:45 Urine Bacteria (Auto) 1+ /HPF (Negative) 04/02/22 Unknown Hyaline Casts 1 /LPF 04/05/22 17:45 Urine Mucus 3+ /HPF 04/05/22 17:45 Nasal Screen MRSA (PCR) Negative (Negative) 04/05/22 12:37 Vancomycin Trough 6.0 ug/mL (5.0-20.0) 04/05/22 18:53 Coronavirus (PCR) Negative (Negative) 04/07/22 14:52 Microbiology: Microbiology 04/15/22 17:57 Bronchial Washings - Right Middle Lobe Respiratory Culture - Final Pseudomonas Aeruginosa Perez/IV: Voiding Method Condom Catheter Active Medications - Current Medications Current Medications: Generic Name Dose Route Start Last Admin Trade Name Freq PRN Reason Stop Dose Admin Acetaminophen 650 mg 04/02/22 23:53 04/16/22 12:16 Acetaminophen 325 Mg Tab PO 650 mg Q6H PRN Administration Pain MILD(1-3)/Fever >100.5/FAITH Albuterol 2.5 mg 04/06/22 16:00 04/19/22 15:05 Albuterol 2.5 Mg/3 Ml Nebu IH 2.5 mg Q8HRT SEGUNDO Administration Bisacodyl 10 mg 04/07/22 09:44 04/12/22 10:06 Bisacodyl 10 Mg Rect Supp ND 10 mg QDAY PRN Administration Constipation Dextrose 50 ml 04/06/22 17:54 Dextrose 50% In Water (25gm) 50 Ml Syringe IV Q30MIN PRN Hypoglycemia Protocol Docusate Sodium 100 mg 04/03/22 15:00 04/19/22 09:43 Docusate Sodium 100 Mg/10 Ml Oral Liqd PO 100 mg BID SEGUNDO Administration Famotidine 20 mg 04/06/22 10:00 04/19/22 09:43 Famotidine 20 Mg Tab FEEDTUBE 20 mg BID SEGUNDO Administration Fentanyl 50 mcg 04/04/22 15:56 04/16/22 13:31 Fentanyl 100 Mcg/2 Ml Inj IV 50 mcg Q2HR PRN Administration For CPOT of greater than 3 Heparin Sodium (Porcine) 5,000 unit 04/03/22 06:00 04/19/22 15:15 Heparin 5,000 Unit/1 Ml Vial SUB-Q 5,000 unit Q8HR SEGUNDO Administration Dexmedetomidine HCl 400 mcg/ 104 mls @ 2.434 mls/hr 04/03/22 07:00 04/14/22 14:55 Sodium Chloride IV 0 mcg/kg/hr TITRATE SEGUNDO 0 mls/hr Titration Protocol 0.2 MCG/KG/HR Cefepime HCl 1 gm in 100 mls @ 200 mls/hr 04/15/22 21:00 04/19/22 12:02 Cefepime/Ns 1 Gm/100 Ml IV 04/19/22 20:59 200 mls/hr Q8H SEGUNDO Administration Protocol Insulin Human Regular 0 units 04/06/22 18:00 04/19/22 12:03 Insulin Regular, Human 100 Units/1 Ml SUB-Q Not Given Q6H [facility] Protocol Magnesium Hydroxide 30 ml 04/02/22 23:53 Magnesium Hydroxide (Mom) Oral Liqd Udc PO Q4H PRN Constipation Metoprolol Tartrate 25 mg 04/16/22 18:00 04/19/22 12:02 Metoprolol Tartrate 25 Mg Tab FEEDTUBE 25 mg Q6HR SEGUNDO Administration Ondansetron HCl 4 mg 04/02/22 23:53 Ondansetron 4 Mg/2 Ml Inj IV Q8H PRN Nausea And Vomiting Polyethylene Glycol 17 gm 04/08/22 10:00 04/19/22 09:43 Polyethylene Glycol 3350 17 Gm Powder PO 17 gm QDAY SEGUNDO Administration Quetiapine Fumarate 50 mg 04/12/22 14:01 04/18/22 21:28 Quetiapine 25 Mg Tab PO 50 mg QHS SEGUNDO Administration Quetiapine Fumarate 100 mg 04/18/22 06:00 04/19/22 15:17 Quetiapine 100 Mg Tab PO 100 mg 0600,1600 SEGUNDO Administration Senna 17.6 mg 04/03/22 22:00 04/19/22 09:43 Sennosides Oral Liqd 8.8 Mg/5 Ml Oral Liqd PO 17.6 mg Q12HR SEGUNDO Administration Sodium Chloride 10 ml 04/03/22 10:00 04/19/22 09:43 Sodium Chloride 0.9% 10 Ml Flush Syringe IV 10 ml BID SEGUNDO Administration Sodium Chloride 10 ml 04/02/22 23:53 Sodium Chloride 0.9% 10 Ml Flush Syringe IV PRN PRN LINE FLUSH Nutrition/Malnutrition Assess - Dietary Evaluation Nutrition/Malnutrition Findings: Nutrition Notes Start: 04/04/22 1 3:13 Freq: Status: Active Protocol: Document 04/13/22 12:41 COLLEEN (Rec: 04/13/22 13:09 COLLEEN [id number]) Nutrition Notes Initial or Follow up Reassessment Current Diagnosis Coronary Artery Disease, Respiratory Failure, Malnutrition Other Pertinent Diagnosis HCAP, HFpEF, ALS, Pleural Effusion, R-Lung Collapse, Hypotension, ... Current Diet NPO (since 04/13 00:01). Labs/Tests 04/13: Cl 93.9, CO2 39, Crea < 0.2, Phos 1.9. Pertinent Medications 04/13: Nutritionally unremarkable. Height 5 ft 4.8 in Weight 46.8 kg [place] Body Weight (kg) 61.27 BMI 17.2 Weight change and time frame No body weight change reported in 9 days. Weight Status Underweight Subjective/Other Information RD consult for routine F/U on TF tolerance/continuation. Pt currently on NPO. Pt is on Mechanical ventilation, O2 saturation @ 96%, according to Physical Assessment Histroy notes. Pt is awake and tracking, but unable to follow simple commands, according to Progress notes. Procedure planned for 04/13: Trach/PEG, but with moderate to high risk of associated cardiac event, according to Progress notes. Pt to be placed on LTAC facility after procedure. Percent of energy/protein needs met: Pt currently on NPO. Prescribed TF-Vital AF 1.2 Inderjit @ 50 ml/hr provides for energy/protein needs (1,450 Kcal/91 g) during LOS, 98% Kcal; 100% AA. Burn Absent Trauma Absent GI Symptoms Constipation Difficulty In Swallowing,Chewing Food Allergy No Skin Integrity/Comment Sacral skin tear. Current % PO Other Minimum of two criteria No #1 Nutrition Diagnosis Inadequate oral intake Comments: Procedure planned for 04/13: Trach/PEG, but with moderate to high risk of associated cardiac event, according to Progress notes. Diagnosis Progress(for reassessment Continues documentation) Is patient on ventilator? Yes Is Patient Ambulatory and/or Out of Bed No REE-([facility]-confined to bed) [phone] Calculation Used for Recommendations [facility] Additional Notes Protein: 1.2-2 g/Kg IBW; 73- 122 g/day. Fluids: 1 ml/Kcal, or as per MD. Nutrition Intervention Nutrition Support: When pertinent, resume TF- Vital AF 1.2 Inderjit @ 50 ml/hr. Flush: 80 ml water Q 4 hr, or as per MD. Kcal 1,450 Protein (gm) 91 Carbohydrates (gm) 134 Fat (gm) 65 Fluid (mL) 980 Fiber (gm) 6 % RDI: 98% Kcal; 100% AA. Goal #1 Provide at least 75% of energy /protein needs through Enteral Feeding during LOS. Goal #2 Maintain body weight within +/ -3% of admission body weight during LOS. Follow-Up By: 04/20/22 Additional Comments When pertinent, continue monitoring TF tolerance and BM . <DIXIE BROWN - Last Filed: 04/20/22 06:02> Assessment and Plan Assessment and plan: I saw and evaluated the patient. I agree with the findings and the plan of care as documented in the Nurse Practitioner's~note, with the following corrections and additions. Hospitalist Physical - Constitutional Vitals: Temp Pulse Resp BP Pulse Ox 99 F 100 H 14 106/64 96 04/20/22 04:00 04/20/22 05:33 04/20/22 05:00 04/20/22 05:33 04/20/22 05:00 HEART Score - HEART Score Troponin: Troponin T 0.031 ng/mL (0.00-0.029) H 04/08/22 17:47 Results - Labs CBC & Chem 7: 04/20/22 04:49 04/19/22 04:08 Labs: Laboratory Last Values WBC 14.7 K/mm3 (4.5-11.0) H 04/20/22 04:49 RBC 3.36 M/mm3 (3.65-5.03) L 04/20/22 04:49 Hgb 10.3 gm/dl (11.8-15.2) L 04/20/22 04:49 Hct 32.0 % (35.5-45.6) L 04/20/22 04:49 MCV 95 fl (84-94) H 04/20/22 04:49 MCH 31 pg (28-32) 04/20/22 04:49 MCHC 32 % (32-34) 04/20/22 04:49 RDW 13.9 % (13.2-15.2) 04/20/22 04:49 Plt Count 191 K/mm3 (140-440) 04/20/22 04:49 Lymph % (Auto) 4.3 % (13.4-35.0) L 04/07/22 03:51 [place] % (Auto) 8.8 % (0.0-7.3) H 04/07/22 03:51 Eos % (Auto) 0.1 % (0.0-4.3) 04/07/22 03:51 Baso % (Auto) 0.2 % (0.0-1.8) 04/07/22 03:51 Lymph # (Auto) 0.6 K/mm3 (1.2-5.4) L 04/07/22 03:51 [place] # (Auto) 1.3 K/mm3 (0.0-0.8) H 04/07/22 03:51 Eos # (Auto) 0.0 K/mm3 (0.0-0.4) 04/07/22 03:51 Baso # (Auto) 0.0 K/mm3 (0.0-0.1) 04/07/22 03:51 Add Manual Diff Complete 04/02/22 19:39 Total Counted 100 04/02/22 19:39 Seg Neutrophils % 86.6 % (40.0-70.0) H 04/07/22 03:51 Seg Neuts % (Manual) 94.0 % (40.0-70.0) H 04/02/22 19:39 Band Neutrophils % 0 % 04/02/22 19:39 Lymphocytes % (Manual) 1.0 % (13.4-35.0) L 04/02/22 19:39 Reactive Lymphs % (Man) 0 % 04/02/22 19:39 Monocytes % (Manual) 5.0 % (0.0-7.3) 04/02/22 19:39 Eosinophils % (Manual) 0 % (0.0-4.3) 04/02/22 19:39 Basophils % (Manual) 0 % (0.0-1.8) 04/02/22 19:39 Metamyelocytes % 0 % 04/02/22 19:39 Myelocytes % 0 % 04/02/22 19:39 Promyelocytes % 0 % 04/02/22 19:39 Blast Cells % 0 % 04/02/22 19:39 Nucleated RBC % Not Reportable 04/02/22 19:39 Seg Neutrophils # 12.7 K/mm3 (1.8-7.7) H 04/07/22 03:51 Seg Neutrophils # Man 13.4 K/mm3 (1.8-7.7) H 04/02/22 19:39 Band Neutrophils # 0.0 K/mm3 04/02/22 19:39 Lymphocytes # (Manual) 0.1 K/mm3 (1.2-5.4) L 04/02/22 19:39 Abs React Lymphs (Man) 0.0 K/mm3 04/02/22 19:39 Monocytes # (Manual) 0.7 K/mm3 (0.0-0.8) 04/02/22 19:39 Eosinophils # (Manual) 0.0 K/mm3 (0.0-0.4) 04/02/22 19:39 Basophils # (Manual) 0.0 K/mm3 (0.0-0.1) 04/02/22 19:39 Metamyelocytes # 0.0 K/mm3 04/02/22 19:39 Myelocytes # 0.0 K/mm3 04/02/22 19:39 Promyelocytes # 0.0 K/mm3 04/02/22 19:39 Blast Cells # 0.0 K/mm3 04/02/22 19:39 WBC Morphology Not Reportable 04/02/22 19:39 Hypersegmented Neuts Not Reportable 04/02/22 19:39 Hyposegmented Neuts Not Reportable 04/02/22 19:39 Hypogranular Neuts Not Reportable 04/02/22 19:39 Smudge Cells Not Reportable 04/02/22 19:39 Toxic Granulation Not Reportable 04/02/22 19:39 Toxic Vacuolation Not Reportable 04/02/22 19:39 Dohle Bodies Not Reportable 04/02/22 19:39 Pelger-Huet Anomaly Not Reportable 04/02/22 19:39 Terry Rods Not Reportable 04/02/22 19:39 Platelet Estimate Consistent w auto 04/02/22 19:39 Clumped Platelets Not Reportable 04/02/22 19:39 Plt Clumps, EDTA Not Reportable 04/02/22 19:39 Large Platelets Not Reportable 04/02/22 19:39 Giant Platelets Not Reportable 04/02/22 19:39 Platelet Satelliting Not Reportable 04/02/22 19:39 Plt Morphology Comment Not Reportable 04/02/22 19:39 RBC Morphology Not Reportable 04/02/22 19:39 Dimorphic RBCs Not Reportable 04/02/22 19:39 Polychromasia Not Reportable 04/02/22 19:39 Hypochromasia Not Reportable 04/02/22 19:39 Poikilocytosis Not Reportable 04/02/22 19:39 Anisocytosis 1+ 04/02/22 19:39 Microcytosis Not Reportable 04/02/22 19:39 Macrocytosis Not Reportable 04/02/22 19:39 Spherocytes Not Reportable 04/02/22 19:39 Pappenheimer Bodies Not Reportable 04/02/22 19:39 Sickle Cells Not Reportable 04/02/22 19:39 Target Cells Not Reportable 04/02/22 19:39 Tear Drop Cells Not Reportable 04/02/22 19:39 Ovalocytes Not Reportable 04/02/22 19:39 Helmet Cells Not Reportable 04/02/22 19:39 Patricio-Halfway Bodies Not Reportable 04/02/22 19:39 [place] Rings Not Reportable 04/02/22 19:39 Cheikh Cells Not Reportable 04/02/22 19:39 Bite Cells Not Reportable 04/02/22 19:39 Crenated Cell Not Reportable 04/02/22 19:39 Elliptocytes Not Reportable 04/02/22 19:39 Acanthocytes (Spur) Not Reportable 04/02/22 19:39 Rouleaux Not Reportable 04/02/22 19:39 Hemoglobin C Crystals Not Reportable 04/02/22 19:39 Schistocytes Not Reportable 04/02/22 19:39 Malaria parasites Not Reportable 04/02/22 19:39 [place] Bodies Not Reportable 04/02/22 19:39 Hem Pathologist Commnt No 04/02/22 19:39 PT 13.6 Sec. (12.2-14.9) 04/13/22 04:30 INR 0.94 (0.87-1.13) 04/13/22 04:30 APTT 35.7 Sec. (24.2-36.6) 04/07/22 03:51 ABG pH 7.419 pH Units (7.350-7.450) 04/19/22 08:50 ABG pCO2 74.5 mm Hg 04/19/22 08:50 ABG pO2 56.0 mm Hg (80.0-90.0) L 04/19/22 08:50 ABG HCO3 47.1 mmol/L (20.0-26.0) H 04/19/22 08:50 ABG O2 Saturation 93.3 % (95.0-99.0) L 04/19/22 08:50 ABG O2 Content 10.3 (0.0-44) 04/19/22 08:50 ABG Base Excess 20.1 mmol/L (-2.0-3.0) H 04/19/22 08:50 ABG Hemoglobin 8.0 gm/dl (14.0-18.0) L 04/19/22 08:50 ABG Carboxyhemoglobin 1.3 % (0.0-5.0) 04/19/22 08:50 ABG Methemoglobin 0.3 % (0.0-1.5) 04/19/22 08:50 Oxyhemoglobin 91.8 % (95.0-99.0) L 04/19/22 08:50 FiO2 55 % 04/19/22 08:50 Sodium 141 mmol/L (137-145) 04/19/22 04:08 Potassium 4.6 mmol/L (3.6-5.0) 04/19/22 04:08 Chloride 96.2 mmol/L (98-107) L 04/19/22 04:08 Carbon Dioxide 40 mmol/L (22-30) H 04/19/22 04:08 Anion Gap 9 mmol/L 04/19/22 04:08 BUN 24 mg/dL (9-20) H 04/19/22 04:08 Creatinine < 0.2 mg/dL (0.8-1.3) L 04/19/22 04:08 Estimated GFR > 60 ml/min 04/19/22 04:08 BUN/Creatinine Ratio 120 % 04/19/22 04:08 Glucose 125 mg/dL (75-100) H 04/19/22 04:08 POC Glucose 124 mg/dL (70-105) H 04/19/22 12:02 Lactic Acid 1.90 mmol/L (0.7-2.0) 04/02/22 19:39 Calcium 8.3 mg/dL (8.4-10.2) L 04/19/22 04:08 Phosphorus 2.50 mg/dL (2.5-4.5) 04/17/22 04:36 Magnesium 2.10 mg/dL (1.7-2.3) 04/17/22 04:36 Total Bilirubin 0.80 mg/dL (0.1-1.2) 04/02/22 19:39 AST 15 units/L (5-40) 04/02/22 19:39 ALT 9 units/L (7-56) 04/02/22 19:39 Alkaline Phosphatase 43 units/L (35-129) 04/02/22 19:39 Total Creatine Kinase 46 units/L (55-170) L 04/08/22 17:47 CK-MB (CK-2) 2.6 ng/mL (0.0-4.0) 04/08/22 17:47 CK-MB (CK-2) Rel Index 5.6 (0-4) H 04/08/22 17:47 Troponin T 0.031 ng/mL (0.00-0.029) H 04/08/22 17:47 C-Reactive Protein 31.60 mg/dL (0.00-1.30) H 04/04/22 04:18 Total Protein 4.6 g/dL (6.3-8.2) L 04/02/22 19:39 Albumin 2.7 g/dL (3.9-5) L 04/02/22 19:39 Albumin/Globulin Ratio 1.4 % 04/02/22 19:39 Triglycerides 80 mg/dL (2-149) 04/02/22 19:39 Cholesterol 94 mg/dL (50-199) 04/02/22 19:39 LDL Cholesterol Direct 27 mg/dL (50-130) L 04/02/22 19:39 HDL Cholesterol 47 mg/dL (40-59) 04/02/22 19:39 Cholesterol/HDL Ratio 2.00 % 04/02/22 19:39 Procalcitonin 0.08 ng/mL (<0.15) 04/04/22 04:18 Urine Color Aracely (Yellow) 04/05/22 17:45 Urine Turbidity Cloudy (Clear) 04/05/22 17:45 Urine pH 5.0 (5.0-7.0) 04/05/22 17:45 Ur Specific [place] 1.021 (1.003-1.030) 04/05/22 17:45 Urine Protein 30 mg/dl mg/dL (Negative) 04/05/22 17:45 Urine Glucose (UA) Neg mg/dL (Negative) 04/05/22 17:45 Urine Ketones Tr mg/dL (Negative) 04/05/22 17:45 Urine Blood Sm (Negative) 04/05/22 17:45 Urine Nitrite Neg (Negative) 04/05/22 17:45 Urine Bilirubin Neg (Negative) 04/05/22 17:45 Urine Urobilinogen < 2.0 mg/dL (<2.0) 04/05/22 17:45 Ur Leukocyte Esterase Tr (Negative) 04/05/22 17:45 Urine WBC (Auto) 8.0 /HPF (0.0-6.0) H 04/05/22 17:45 Urine RBC (Auto) 3.0 /HPF (0.0-6.0) 04/05/22 17:45 U Epithel Cells (Auto) 2.0 /HPF (0-13.0) 04/05/22 17:45 Urine Bacteria (Auto) 1+ /HPF (Negative) 04/02/22 Unknown Hyaline Casts 1 /LPF 04/05/22 17:45 Urine Mucus 3+ /HPF 04/05/22 17:45 Nasal Screen MRSA (PCR) Negative (Negative) 04/05/22 12:37 Vancomycin Trough 6.0 ug/mL (5.0-20.0) 04/05/22 18:53 Coronavirus (PCR) Negative (Negative) 04/07/22 14:52 Perez/IV: Voiding Method Condom Catheter Active Medications - Current Medications Current Medications: Generic Name Dose Route Start Last Admin Trade Name Freq PRN Reason Stop Dose Admin Acetaminophen 650 mg 04/02/22 23:53 04/16/22 12:16 Acetaminophen 325 Mg Tab PO 650 mg Q6H PRN Administration Pain MILD(1-3)/Fever >100.5/FAITH Albuterol 2.5 mg 04/06/22 16:00 04/19/22 23:53 Albuterol 2.5 Mg/3 Ml Nebu IH 2.5 mg Q8HRT SEGUNDO Administration Bisacodyl 10 mg 04/07/22 09:44 04/12/22 10:06 Bisacodyl 10 Mg Rect Supp ND 10 mg QDAY PRN Administration Constipation Dextrose 50 ml 04/06/22 17:54 Dextrose 50% In Water (25gm) 50 Ml Syringe IV Q30MIN PRN Hypoglycemia Protocol Docusate Sodium 100 mg 04/03/22 15:00 04/19/22 22:01 Docusate Sodium 100 Mg/10 Ml Oral Liqd PO 100 mg BID SEGUNDO Administration Famotidine 20 mg 04/06/22 10:00 04/19/22 22:02 Famotidine 20 Mg Tab FEEDTUBE 20 mg BID SEGUNDO Administration Fentanyl 50 mcg 04/04/22 15:56 04/16/22 13:31 Fentanyl 100 Mcg/2 Ml Inj IV 50 mcg Q2HR PRN Administration For CPOT of greater than 3 Heparin Sodium (Porcine) 5,000 unit 04/03/22 06:00 04/20/22 05:33 Heparin 5,000 Unit/1 Ml Vial SUB-Q 5,000 unit Q8HR SEGUNDO Administration Dexmedetomidine HCl 400 mcg/ 104 mls @ 2.434 mls/hr 04/03/22 07:00 04/14/22 14:55 Sodium Chloride IV 0 mcg/kg/hr TITRATE SEGUNDO 0 mls/hr Titration Protocol 0.2 MCG/KG/HR Insulin Human Regular 0 units 04/06/22 18:00 04/20/22 05:59 Insulin Regular, Human 100 Units/1 Ml SUB-Q Not Given Q6H [facility] [place] Protocol Magnesium Hydroxide 30 ml 04/02/22 23:53 Magnesium Hydroxide (Mom) Oral Liqd Udc PO Q4H PRN Constipation Metoprolol Tartrate 25 mg 04/16/22 18:00 04/20/22 05:33 Metoprolol Tartrate 25 Mg Tab FEEDTUBE 25 mg Q6HR SEGUNDO Administration Ondansetron HCl 4 mg 04/02/22 23:53 Ondansetron 4 Mg/2 Ml Inj IV Q8H PRN Nausea And Vomiting Polyethylene Glycol 17 gm 04/08/22 10:00 04/19/22 09:43 Polyethylene Glycol 3350 17 Gm Powder PO 17 gm QDAY SEGUNDO Administration Quetiapine Fumarate 50 mg 04/12/22 14:01 04/19/22 22:01 Quetiapine 25 Mg Tab PO 50 mg QHS SEGUNDO Administration Quetiapine Fumarate 100 mg 04/18/22 06:00 04/20/22 05:33 Quetiapine 100 Mg Tab PO 100 mg 0600,1600 SEGUNDO Administration Senna 17.6 mg 04/03/22 22:00 04/19/22 22:01 Sennosides Oral Liqd 8.8 Mg/5 Ml Oral Liqd PO 17.6 mg Q12HR SEGUNDO Administration Sodium Chloride 10 ml 04/03/22 10:00 04/19/22 22:01 Sodium Chloride 0.9% 10 Ml Flush Syringe IV 10 ml BID SEGUNDO Administration Sodium Chloride 10 ml 04/02/22 23:53 Sodium Chloride 0.9% 10 Ml Flush Syringe IV PRN PRN LINE FLUSH Nutrition/Malnutrition Assess - Dietary Evaluation Nutrition/Malnutrition Findings: Nutrition Notes Start: 04/04/22 13:13 Freq: Status: Active Protocol: Document 04/13/22 12:41 COLLEEN (Rec: 04/13/22 13:09 COLLEEN [id number]) Nutrition Notes Initial or Follow up Reassessment Current Diagnosis Coronary Artery Disease, Respiratory Failure, Malnutrition Other Pertinent Diagnosis HCAP, HFpEF, ALS, Pleural Effusion, R-Lung Collapse, Hypotension, ... Current Diet NPO (since 04/13 00:01). Labs/Tests 04/13: Cl 93.9, CO2 39, Crea < 0.2, Phos 1.9. Pertinent Medications 04/13: Nutritionally unremarkable. Height 5 ft 4.8 in Weight 46.8 kg [place] Body Weight (kg) 61.27 BMI 17.2 Weight change and time frame No body weight change reported in 9 days. Weight Status Underweight Subjective/Other Information RD consult for routine F/U on TF tolerance/continuation. Pt currently on NPO. Pt is on Mechanical ventilation, O2 saturation @ 96%, according to Physical Assessment Histroy notes. Pt is awake and tracking, but unable to follow simple commands, according to Progress notes. Procedure planned for 04/13: Trach/PEG, but with moderate to high risk of associated cardiac event, according to Progress notes. Pt to be placed on LTAC facility after procedure. Percent of energy/protein needs met: Pt currently on NPO. Prescribed TF-Vital AF 1.2 Inderjit @ 50 ml/hr provides for energy/protein needs (1,450 Kcal/91 g) during LOS, 98% Kcal; 100% AA. Burn Absent Trauma Absent GI Symptoms Constipation Difficulty In Swallowing,Chewing Food Allergy No Skin Integrity/Comment Sacral skin tear. Current % PO Other Minimum of two criteria No #1 Nutrition Diagnosis Inadequate oral intake Comments: Procedure planned for 04/13: Trach/PEG, but with moderate to high risk of associated cardiac event, according to Progress notes. Diagnosis Progress(for reassessment Continues documentation) Is patient on ventilator? Yes Is Patient Ambulatory and/or Out of Bed No REE-([facility]-confined to bed) [phone] Calculation Used for Recommendations [facility] Additional Notes Protein: 1.2-2 g/Kg IBW; 73- 122 g/day. Fluids: 1 ml/Kcal, or as per MD. Nutrition Intervention Nutrition Support: When pertinent, resume TF- Vital AF 1.2 Inderjit @ 50 ml/hr. Flush: 80 ml water Q 4 hr, or as per MD. Kcal 1,450 Protein (gm) 91 Carbohydrates (gm) 134 Fat (gm) 65 Fluid (mL) 980 Fiber (gm) 6 % RDI: 98% Kcal; 100% AA. Goal #1 Provide at least 75% of energy /protein needs through Enteral Feeding during LOS. Goal #2 Maintain body weight within +/ -3% of admission body weight during LOS. Follow-Up By: 04/20/22 Additional Comments When pertinent, continue monitoring TF tolerance and BM .
[2022-04-19] MEDS: QUEtiapine 25 MG TAB PO SCH (22:01)
[2022-04-20] MEDS: METOPROLOL TARTRATE 25 MG TAB FEEDTUBE SCH ×4 (00:30→17:12)
[2022-04-20 05:24] LABS: Hemoglobin 10.3 gm/dl (11.8-15.2); Mean Corpuscular HGB Conc 32 % (32-34); Mean Corpuscular Volume 95 fl (84-94); Platelet Count 191 K/mm3 (140-440); Red Blood Count 3.36 M/mm3 (3.65-5.03); Red Cell Distribution Width 13.9 % (13.2-15.2)
[2022-04-20] MEDS: QUEtiapine 100 MG TAB PO SCH ×2 (05:33→15:43)
[2022-04-20] MEDS: HEPARIN 5,000 UNIT/1 ML VIAL SUB-Q SCH ×3 (05:33→21:23)
[2022-04-20] MEDS: INSULIN REGULAR, HUMAN 100 UNITS/1 ML SUB-Q SCH ×4 (05:59→17:28)
[2022-04-20] MEDS: ALBUTEROL 2.5 MG/3 ML NEBU IH SCH ×2 (07:29→15:00)
[2022-04-20] MEDS: POLYETHYLENE GLYCOL 3350 17 GM POWDER PO SCH (09:11)
[2022-04-20] MEDS: DOCUSATE SODIUM 100 MG/10 ML ORAL LIQD PO SCH ×2 (09:11→21:22)
[2022-04-20] MEDS: SENNOSIDES ORAL LIQD 8.8 MG/5 ML ORAL LIQD PO SCH ×2 (09:11→21:22)
[2022-04-20] MEDS: FAMOTIDINE 20 MG TAB FEEDTUBE SCH ×2 (09:11→21:23)
--- NOTE | 2022-04-20 12:55 | Progress Note ---
Assessment and Plan - Patient Problems (1) Respiratory failure Current Visit: Yes Status: Acute Plan to address problem: Patient presented with acute respiratory failure, with chest x-ray showing total whiteout of the right lung, due to acute pneumonia, large right pleural effusion and collapse of the right lung. Continue supportive management, antibiotics. (2) Acute coronary syndrome Current Visit: Yes Status: Acute Plan to address problem: The patient's interval ECGs while in the ICU showed dynamic changes of anterior wall ischemia or infarction. Patient has severe comorbidities including progressive total paralysis of ALS, and intercurrent respiratory failure with large right pleural effusion and total collapse of the right lung. Currently assessed as a poor candidate for aggressive cardiac management due to the multiple severe acute and chronic comorbidities. He has been placed on conservative, empiric coronary artery disease medical therapy. A trach PEG procedure has been completed, discharge planning for halfway facility placement is in progress. Subjective Date of service: 04/20/22 Principal diagnosis: Ac and ch hypercapnic and hypoxemic Resp Failure; ALS; HCAP; Sepsis; NSTEMI Interval history: Patient is on the vent via trach, eyes open, no new cardiac events reported. Objective Vital Signs Temp Pulse Pulse Pulse Pulse Resp Resp 04/20/22 12:16 115 H 04/20/22 12:00 114 H 16 04/20/22 11:47 112 H 04/20/22 11:46 98.1 F 04/20/22 11:15 104 H 04/20/22 11:00 113 H 14 04/20/22 10:00 114 H 14 04/20/22 09:00 108 H 14 04/20/22 08:36 04/20/22 08:29 110 H 18 04/20/22 08:28 93 H 04/20/22 08:00 99.3 F 108 H 99 H 99 H 14 14 04/20/22 07:42 101 H 04/20/22 07:00 98 H 14 04/20/22 06:00 88 14 04/20/22 05:33 100 H 04/20/22 05:00 105 H 14 04/20/22 04:11 113 H 04/20/22 04:10 92 H 92 H 14 04/20/22 04:00 99 F 92 H 14 04/20/22 03:00 105 H 14 04/20/22 02:00 102 H 14 04/20/22 01:00 97 H 15 06/14/22 00:30 111 H 04/20/22 00:26 123 H 04/20/22 00:25 123 H 14 04/20/22 00:00 98.3 F 123 H 14 04/19/22 23:53 106 H 04/19/22 23:41 106 H 04/19/22 23:00 110 H 14 04/19/22 22:17 99 H 14 04/19/22 22:00 102 H 13 04/19/22 21:00 107 H 14 04/19/22 20:30 95 H 14 04/19/22 20:15 95 H 04/19/22 20:00 98.4 F 95 H 14 04/19/22 19:58 99 H 04/19/22 19:00 96 H 14 04/19/22 18:33 98 H 04/19/22 18:00 101 H 14 04/19/22 17:00 102 H 102 H 16 04/19/22 16:00 98 F 102 H 15 04/19/22 15:10 97 H 04/19/22 15:00 97 H 18 04/19/22 14:00 91 H 14 04/19/22 13:15 90 98 H 20 04/19/22 13:00 95 H 17 Resp BP Pulse Ox Pulse Ox 04/20/22 12:16 131/81 04/20/22 12:00 133/81 87 04/20/22 11:47 04/20/22 11:46 04/20/22 11:15 100/58 96 04/20/22 11:00 117/73 93 04/20/22 10:00 123/76 91 04/20/22 09:00 118/65 95 04/20/22 08:36 96 04/20/22 08:29 96 04/20/22 08:28 04/20/22 08:00 14 112/67 99 04/20/22 07:42 100/58 96 04/20/22 07:00 90/52 93 04/20/22 06:00 93/53 95 04/20/22 05:33 106/64 04/20/22 05:00 108/63 96 04/20/22 04:11 111/79 97 04/20/22 04:10 89 04/20/22 04:00 109/65 89 04/20/22 03:00 114/70 93 04/20/22 02:00 117/68 95 04/20/22 01:00 96/57 96 04/20/22 00:30 106/67 04/20/22 00:26 97 04/20/22 00:25 97 04/20/22 00:00 104/71 97 04/19/22 23:53 15 04/19/22 23:41 104/64 95 04/19/22 23:00 104/64 94 04/19/22 22:17 116/69 96 04/19/22 22:00 109/68 96 04/19/22 21:00 119/76 98 04/19/22 20:30 95 04/19/22 20:15 04/19/22 20:00 110/67 95 04/19/22 19:58 110/67 95 04/19/22 19:00 104/66 92 04/19/22 18:33 120/72 04/19/22 18:00 119/72 93 04/19/22 17:00 120/68 93 04/19/22 16:00 111/69 93 04/19/22 15:10 132/78 94 04/19/22 15:00 132/78 93 04/19/22 14:00 128/76 94 04/19/22 13:15 18 04/19/22 13:00 130/75 95 - Physical Examination General: Other (Awake, on the vent via a tracheostomy) HEENT: Positive: PERRL, Normocephaly, Other (ET-tube in place) Neck: Positive: neck supple, trachea midline (intubated). Negative: JVD/HJR Cardiac: Positive: Reg Rate and Rhythm Lungs: Positive: Decreased Breath Sounds Neuro: Positive: Other (Awake, on the vent via tracheostomy) Abdomen: Positive: Soft Skin: Positive: Clear Extremities: Present: Other (TR.EDEMA). Absent: edema (NO) - Labs and Meds CBC 04/20/22 Range/Units 04:49 WBC 14.7 H (4.5-11.0) K/mm3 RBC 3.36 L (3.65-5.03) M/mm3 Hgb 10.3 L (11.8-15.2) gm/dl Hct 32.0 L (35.5-45.6) % Plt Count 191 (140-440) K/mm3 - Allied health notes Allied health notes reviewed: RT
--- NOTE | 2022-04-20 14:28 | Progress Note ---
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, recently hospitalized at [facility] admitted for acute hypoxemic respiratory failure 2/2 pneumonia Neuro: h/o ALS -s/p precedex, fentanyl gtt -Reorientation as needed -Maintain sleep-wake cycle -As needed analgesia -CT head with no acute intracranial process -Per family patient is nonverbal at baseline but responsive -Seroquel Cardiac: Suspect ischemic coronary artery disease, h/o cardiomyopathy -Cardiology consulted, appreciate recommendations -continue conservative management -Blood pressure monitoring per protocol -s/p Vasopressor support with Levophed -Echocardiogram shows ejection fraction of 40 to 45%, mild global hypokinesis of left ventricle -Nitro patch, BB Respiratory: Acute hypoxic respiratory failure -CCM consulted, appreciate recommendations -Intubated on 04/02 with a 7.50 ETT attempt at the lips -s/p trach on 04/14 and s/p bronch on -A.m. vent settings: Assist-control/ PRVC TV 400, rate 14, Peep 8, FiO2 45% -See RT notes for titration -CPT and mucomyst -VAP bundle -SPO2 monitoring -Trach 04/15 GI: Moderate protein calorie malnutrition, constipation -24 hours +345 mL -PPI -Peg 04/15 -NTR consulted for tube feedings -BR: Senokot/colace, MiraLAX : NAD -Strict intake and output -Renally dose medications -Avoid nephrotoxic medications -Daily weights -trend BMP ID: Sepsis, Acute Bronchopneumonia, HAP (Pseudomonas and Enterobacter tracheal aspirate), blood culture with bacillus species -Infectious disease consulted, appreciate recommendation -Per infectious disease patient was recently admitted to [facility] but discharged home with home hospice and not giving antibiotics -Tracheal aspirate with Pseudomonas aeruginosa, Enterobacter aerogenes -04/02 blood culture with bacillus species, 04/05 blood culture NGTD -CRP 31.6, procalcitonin 0.08 -MRSA (-) -s/p cefepime for 14 days -Monitor WBC and temperature curve Endo: NAD -Avoid hypoglycemia -SSI -Accu-Cheks q 6 Heme: Leukocytosis -Heparin subq -Trend CBC -Transfuse hemoglobin less than 7 -SCDs to BLE while in bed Advance Care Planning - Disease education, care plan, diagnoses, and prognosis were discussed patient's , Carly Lopez, and patient daughter, Kaylee Warren, who translated for #[phone]. They reported that patient was following at [facility] for his ALS and during recent hospitalization at [facility] they were told nothing else can be offered to patient at this time and patient was discharge home with home hospice and PO morphine. First hospice visit was on , 04/01 however, patient became unresponsive 04/02 and they brought in to the hospital. - Goal of care and code status were also addressed at that time. Family wants to wait for a couple days to see how patient respond to current treatment before making a decision. All questions and concerns were addressed at this time. Patient family acknowledged understanding and agreement with care plan. -Patient remains a FULL CODE status. -04/05: Discussion at bedside with interpreting service with Dr. Valdivia and family state they would discuss next steps amongst themselves and let healthcare team know of decisions -04/06: extensive discussion with family ( and son) with Dr. Grayson regarding goals of care -04/08: Extensive discussion with with the use of support team assoc line regarding goals of care; no decision made. Possible consult to surgery for trach/PEG early next week. -04/09: Discussion with and her sister with Dr. Grayson and then with Dr. Isela leon-> Consulted surgery for trach/peg -LTACH placement pending The high probability of a clinically significant, sudden or life threatening deterioration of the [multiple] system(s) required my full and direct attention, intervention and personal management. The aggregate critical care time was [60] minutes. 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 Work-up in the emergency department revealed leukocytosis, elevated troponin and hyponatremia and CXR revealed moderate to large pleural effusion on the right. Patient was having agonal breathing in the emergency department and was intubated. Patient was admitted to the hospitalist service with consults to [facility], cardiology and infectious disease for further work-up. Hospital Course to Date: 04/03: Intubated and Sedated on versed gtt, RASS-5. CT head/brain noted with no acute intracranial abnormality. Plan to initiated precededx gtt and wean off versed for a RASS goal of 0 to -2. CT chect also reviewed, findings are most consistent with acute bronchopneumonia. Continue empiric IV Abx, vent adjustment per CCM. ID consulted. Continue to F/U on cultures. Titrate pressor for MAP above 65. Medical records requested from [facility]. 04/04: Remains stable on the vent, easily arousable on precedex gtt, not following commands. Plan for SAT/SBT today. PRN analgesia for CPOT greater than 3. Fevers improved, cultures and procal pending. Continue current IV abx, ID also consulted. Remains on low dose pressors, titrate pressors for a MAP above 65. 04/05: Long discussion with family with use of translation phone with [facility] regarding goals of care. Family to have meeting amongst themselves and informed care team of decisions. Fentanyl drip added for respiratory distress. Remains on Precedex drip. Antibiotics per ID. Given 2L NS bolus with levophed gtt 04/06: Family discussion with Dr. Grayson for goals of care. CXR shows possible mucus plug, continue CPT as FiO2 is being able to be weaned. Potassium repleted. Weaning fentnyl gtt. 04/07: Ultrasound guided thoracentesis today scheduled, inadequate amount of pleural effusion on so not completed. Patient was started on Levophed overnight which was weaned off this morning however had to be started twice a day. Remains on fentanyl and Precedex. Cardiology discontinued BB and ACEi in setti ng of hypotension. 04/08: COVID-19 PCR negative. Routine EEG ordered by cardiology which showed ST c hanges, cardiology aware. They will continue conservative treatment. Repeat troponins 0.030 which are less than admit of 0.048. Dr. Grayson had a long discussion with with the use of support team assoc today at bedside and has not made a decision regarding goals of care. Possible consult to surgery for trach/PEG early next week. Continues to require Precedex and fentanyl drip for sedation. Carvedilol/lisinopril discontinued as patient is continuously on Levophed. 04/09: No acute events reported overnight, remains on fentanyl, Precedex and Levophed drips. Dr. Grayson and Dr. Pineda updated family at bedside extensively today. Consulted surgery for trach/PEG. COVID-19 PCR negative. 04/10: Patient noted to have desaturation episodes, FiO2 increased slightly to 35%. Will add Mucomyst. Remains on fentanyl and Precedex. Off of Levophed. Surgery consulted for trach/PEG. 04/11: FiO2 increased over night likely related to hypoxia, continues on fent gtt, weaning precedex gtt as he is also on Seroquel. Will d/w CCM re scheduled or prn oxycodone 04/12: Periods of hypoxia and tachycardia this am. Symptoms improved post deep suction and tracheal lavage, Repeat CXR noted with no significant change. Continue CPT and mucomyst. Plan for possible trach/PEG tomorrow by general surgery. 04/13: Remains stable on the vent. Patient is wake and tracking but does not follow simple commands. No report of hypoxia from overnight, continue CPT and mucomyst. Plan for track and PEG today by General Surgery. Plan for LTAC placement post procedure, case management to arrange. 04/14: VIRGILIO overnight, Trach and PEG postponed for today by general surgery. Plan for LTAC placement post procedure, case management to arrange. 04/15: S/p Trach and PEG. Up to 80% FiO2 this am, this am CXR noted suggesting possible mucus plug. D/W [facility] plan for bronch today. Continue CPT and mucomyst. Plan of care thoroughly discussed with patient's and son (who translated for ) at the bedside. Per , tripe washer had already discussed the risks and benefits of the procedure yesterday. She verbalized understanding and agreed with procedure and current care plan, consent signed. Okay to use PEG-tube for meds this am, resume TF once okay by general Surgery. Case management to arrange LTAC placement. 04/16: s/p Bronchocopy by [facility]. FiO2 down to 60%, angela 10 this am. This am CXR with moderate improvement. Continue CPT and mucomyst, wean Fio2 as tolerated for SPO2 above 92%. Patient is tolerating TF, advance to goal as ordered. Possible LTAC placement, case management to arrange. 04/17: VIRGILIO overnight. remains stable on the vent, recent CXR and this am ABG noted. Continue CPT and mucomyst, wean Fio2 as tolerated. 04/18: Remains stable on the vent, Fio2 down to 55% and peep of 8 this am. Continue to wean as tolerated, CPT, and mucomyst. Dsiposition- LTAC placement, case management to arrange. 04/19: No acute events overnight. Continue current management. 04/20: No acute events overnight, continue current management Hospitalist Physical - Constitutional Vitals: Temp Pulse Resp BP Pulse Ox 98.1 F 100 H 14 120/71 93 04/20/22 11:46 04/20/22 14:00 04/20/22 14:00 04/20/22 14:00 04/20/22 14:00 General appearance: Present: no acute distress, cachectic, other (Intubated, easily arousable on precedex and fentanyl gtts) - EENT Eyes: Present: PERRL, EOM intact ENT: hearing intact, clear oral mucosa - Neck Neck: Present: normal ROM - Respiratory Respiratory effort: normal Respiratory: bilateral: diminished - Cardiovascular Rhythm: regular Heart Sounds: Present: S1 & S2. Absent: systolic murmur, diastolic murmur - Extremities Extremities: no ischemia, pulses intact, pulses symmetrical, No edema, normal temperature, normal color Peripheral Pulses: within normal limits - Abdominal General gastrointestinal: soft, non-tender, non-distended, normal bowel sounds - Integumentary Integumentary: Present: warm, dry - Psychiatric Psychiatric: other (intact cough/gag, PERRL, does not follow commands) - Neurologic Neurologic: other HEART Score - HEART Score Troponin: Troponin T 0.031 ng/mL (0.00-0.029) H 04/08/22 17:47 Results - Labs CBC & Chem 7: 04/20/22 04:49 04/19/22 04:08 Labs: Laboratory Last Values WBC 14.7 K/mm3 (4.5-11.0) H 04/20/22 04:49 RBC 3.36 M/mm3 (3.65-5.03) L 04/20/22 04:49 Hgb 10.3 gm/dl (11.8-15.2) L 04/20/22 04:49 Hct 32.0 % (35.5-45.6) L 04/20/22 04:49 MCV 95 fl (84-94) H 04/20/22 04:49 MCH 31 pg (28-32) 04/20/22 04:49 MCHC 32 % (32-34) 04/20/22 04:49 RDW 13.9 % (13.2-15.2) 04/20/22 04:49 Plt Count 191 K/mm3 (140-440) 04/20/22 04:49 Lymph % (Auto) 4.3 % (13.4-35.0) L 04/07/22 03:51 Pine % (Auto) 8.8 % (0.0-7.3) H 04/07/22 03:51 Eos % (Auto) 0.1 % (0.0-4.3) 04/07/22 03:51 Baso % (Auto) 0.2 % (0.0-1.8) 04/07/22 03:51 Lymph # (Auto) 0.6 K/mm3 (1.2-5.4) L 04/07/22 03:51 Pine # (Auto) 1.3 K/mm3 (0.0-0.8) H 04/07/22 03:51 Eos # (Auto) 0.0 K/mm3 (0.0-0.4) 04/07/22 03:51 Baso # (Auto) 0.0 K/mm3 (0.0-0.1) 04/07/22 03:51 Add Manual Diff Complete 04/02/22 19:39 Total Counted 100 04/02/22 19:39 Seg Neutrophils % 86.6 % (40.0-70.0) H 04/07/22 03:51 Seg Neuts % (Manual) 94.0 % (40.0-70.0) H 04/02/22 19:39 Band Neutrophils % 0 % 04/02/22 19:39 Lymphocytes % (Manual) 1.0 % (13.4-35.0) L 04/02/22 19:39 Reactive Lymphs % (Man) 0 % 04/02/22 19:39 Monocytes % (Manual) 5.0 % (0.0-7.3) 04/02/22 19:39 Eosinophils % (Manual) 0 % (0.0-4.3) 04/02/22 19:39 Basophils % (Manual) 0 % (0.0-1.8) 04/02/22 19:39 Metamyelocytes % 0 % 04/02/22 19:39 Myelocytes % 0 % 04/02/22 19:39 Promyelocytes % 0 % 04/02/22 19:39 Blast Cells % 0 % 04/02/22 19:39 Nucleated RBC % Not Reportable 04/02/22 19:39 Seg Neutrophils # 12.7 K/mm3 (1.8-7.7) H 04/07/22 03:51 Seg Neutrophils # Man 13.4 K/mm3 (1.8-7.7) H 04/02/22 19:39 Band Neutrophils # 0.0 K/mm3 04/02/22 19:39 Lymphocytes # (Manual) 0.1 K/mm3 (1.2-5.4) L 04/02/22 19:39 Abs React Lymphs (Man) 0.0 K/mm3 04/02/22 19:39 Monocytes # (Manual) 0.7 K/mm3 (0.0-0.8) 04/02/22 19:39 Eosinophils # (Manual) 0.0 K/mm3 (0.0-0.4) 04/02/22 19:39 Basophils # (Manual) 0.0 K/mm3 (0.0-0.1) 04/02/22 19:39 Metamyelocytes # 0.0 K/mm3 04/02/22 19:39 Myelocytes # 0.0 K/mm3 04/02/22 19:39 Promyelocytes # 0.0 K/mm3 04/02/22 19:39 Blast Cells # 0.0 K/mm3 04/02/22 19:39 WBC Morphology Not Reportable 04/02/22 19:39 Hypersegmented Neuts Not Reportable 04/02/22 19:39 Hyposegmented Neuts Not Reportable 04/02/22 19:39 Hypogranular Neuts Not Reportable 04/02/22 19:39 Smudge Cells Not Reportable 04/02/22 19:39 Toxic Granulation Not Reportable 04/02/22 19:39 Toxic Vacuolation Not Reportable 04/02/22 19:39 Dohle Bodies Not Reportable 04/02/22 19:39 Pelger-Huet Anomaly Not Reportable 04/02/22 19:39 Terry Rods Not Reportable 04/02/22 19:39 Platelet Estimate Consistent w auto 04/02/22 19:39 Clumped Platelets Not Reportable 04/02/22 19:39 Plt Clumps, EDTA Not Reportable 04/02/22 19:39 Large Platelets Not Reportable 04/02/22 19:39 Giant Platelets Not Reportable 04/02/22 19:39 Platelet Satelliting Not Reportable 04/02/22 19:39 Plt Morphology Comment Not Reportable 04/02/22 19:39 RBC Morphology Not Reportable 04/02/22 19:39 Dimorphic RBCs Not Reportable 04/02/22 19:39 Polychromasia Not Reportable 04/02/22 19:39 Hypochromasia Not Reportable 04/02/22 19:39 Poikilocytosis Not Reportable 04/02/22 19:39 Anisocytosis 1+ 04/02/22 19:39 Microcytosis Not Reportable 04/02/22 19:39 Macrocytosis Not Reportable 04/02/22 19:39 Spherocytes Not Reportable 04/02/22 19:39 Pappenheimer Bodies Not Reportable 04/02/22 19:39 Sickle Cells Not Reportable 04/02/22 19:39 Target Cells Not Reportable 04/02/22 19:39 Tear Drop Cells Not Reportable 04/02/22 19:39 Ovalocytes Not Reportable 04/02/22 19:39 Helmet Cells Not Reportable 04/02/22 19:39 [place] Bodies Not Reportable 04/02/22 19:39 [place] Rings Not Reportable 04/02/22 19:39 Cheikh Cells Not Reportable 04/02/22 19:39 Bite Cells Not Reportable 04/02/22 19:39 Crenated Cell Not Reportable 04/02/22 19:39 Elliptocytes Not Reportable 04/02/22 19:39 Acanthocytes (Spur) Not Reportable 04/02/22 19:39 Rouleaux Not Reportable 04/02/22 19:39 Hemoglobin C Crystals Not Reportable 04/02/22 19:39 Schistocytes Not Reportable 04/02/22 19:39 Malaria parasites Not Reportable 04/02/22 19:39 [place] Bodies Not Reportable 04/02/22 19:39 Hem Pathologist Commnt No 04/02/22 19:39 PT 13.6 Sec. (12.2-14.9) 04/13/22 04:30 INR 0.94 (0.87-1.13) 04/13/22 04:30 APTT 35.7 Sec. (24.2-36.6) 04/07/22 03:51 ABG pH 7.419 pH Units (7.350-7.450) 04/19/22 08:50 ABG pCO2 74.5 mm Hg 04/19/22 08:50 ABG pO2 56.0 mm Hg (80.0-90.0) L 04/19/22 08:50 ABG HCO3 47.1 mmol/L (20.0-26.0) H 04/19/22 08:50 ABG O2 Saturation 93.3 % (95.0-99.0) L 04/19/22 08:50 ABG O2 Content 10.3 (0.0-44) 04/19/22 08:50 ABG Base Excess 20.1 mmol/L (-2.0-3.0) H 04/19/22 08:50 ABG Hemoglobin 8.0 gm/dl (14.0-18.0) L 04/19/22 08:50 ABG Carboxyhemoglobin 1.3 % (0.0-5.0) 04/19/22 08:50 ABG Methemoglobin 0.3 % (0.0-1.5) 04/19/22 08:50 Oxyhemoglobin 91.8 % (95.0-99.0) L 04/19/22 08:50 FiO2 55 % 04/19/22 08:50 Sodium 141 mmol/L (137-145) 04/19/22 04:08 Potassium 4.6 mmol/L (3.6-5.0) 04/19/22 04:08 Chloride 96.2 mmol/L (98-107) L 04/19/22 04:08 Carbon Dioxide 40 mmol/L (22-30) H 04/19/22 04:08 Anion Gap 9 mmol/L 04/19/22 04:08 BUN 24 mg/dL (9-20) H 04/19/22 04:08 Creatinine < 0.2 mg/dL (0.8-1.3) L 04/19/22 04:08 Estimated GFR > 60 ml/min 04/19/22 04:08 BUN/Creatinine Ratio 120 % 04/19/22 04:08 Glucose 125 mg/dL (75-100) H 04/19/22 04:08 POC Glucose 128 mg/dL (70-105) H 04/20/22 11:40 Lactic Acid 1.90 mmol/L (0.7-2.0) 04/02/22 19:39 Calcium 8.3 mg/dL (8.4-10.2) L 04/19/22 04:08 Phosphorus 2.50 mg/dL (2.5-4.5) 04/17/22 04:36 Magnesium 2.10 mg/dL (1.7-2.3) 04/17/22 04:36 Total Bilirubin 0.80 mg/dL (0.1-1.2) 04/02/22 19:39 AST 15 units/L (5-40) 04/02/22 19:39 ALT 9 units/L (7-56) 04/02/22 19:39 Alkaline Phosphatase 43 units/L (35-129) 04/02/22 19:39 Total Creatine Kinase 46 units/L (55-170) L 04/08/22 17:47 CK-MB (CK-2) 2.6 ng/mL (0.0-4.0) 04/08/22 17:47 CK-MB (CK-2) Rel Index 5.6 (0-4) H 04/08/22 17:47 Troponin T 0.031 ng/mL (0.00-0.029) H 04/08/22 17:47 C-Reactive Protein 31.60 mg/dL (0.00-1.30) H 04/04/22 04:18 Total Protein 4.6 g/dL (6.3-8.2) L 04/02/22 19:39 Albumin 2.7 g/dL (3.9-5) L 04/02/22 19:39 Albumin/Globulin Ratio 1.4 % 04/02/22 19:39 Triglycerides 80 mg/dL (2-149) 04/02/22 19:39 Cholesterol 94 mg/dL (50-199) 04/02/22 19:39 LDL Cholesterol Direct 27 mg/dL (50-130) L 04/02/22 19:39 HDL Cholesterol 47 mg/dL (40-59) 04/02/22 19:39 Cholesterol/HDL Ratio 2.00 % 04/02/22 19:39 Procalcitonin 0.08 ng/mL (<0.15) 04/04/22 04:18 Urine Color Aracely (Yellow) 04/05/22 17:45 Urine Turbidity Cloudy (Clear) 04/05/22 17:45 Urine pH 5.0 (5.0-7.0) 04/05/22 17:45 Ur Specific [place] 1.021 (1.003-1.030) 04/05/22 17:45 Urine Protein 30 mg/dl mg/dL (Negative) 04/05/22 17:45 Urine Glucose (UA) Neg mg/dL (Negative) 04/05/22 17:45 Urine Ketones Tr mg/dL (Negative) 04/05/22 17:45 Urine Blood Sm (Negative) 04/05/22 17:45 Urine Nitrite Neg (Negative) 04/05/22 17:45 Urine Bilirubin Neg (Negative) 04/05/22 17:45 Urine Urobilinogen < 2.0 mg/dL (<2.0) 04/05/22 17:45 Ur Leukocyte Esterase Tr (Negative) 04/05/22 17:45 Urine WBC (Auto) 8.0 /HPF (0.0-6.0) H 04/05/22 17:45 Urine RBC (Auto) 3.0 /HPF (0.0-6.0) 04/05/22 17:45 U Epithel Cells (Auto) 2.0 /HPF (0-13.0) 04/05/22 17:45 Urine Bacteria (Auto) 1+ /HPF (Negative) 04/02/22 Unknown Hyaline Casts 1 /LPF 04/05/22 17:45 Urine Mucus 3+ /HPF 04/05/22 17:45 Nasal Screen MRSA (PCR) Negative (Negative) 04/05/22 12:37 Vancomycin Trough 6.0 ug/mL (5.0-20.0) 04/05/22 18:53 Coronavirus (PCR) Negative (Negative) 04/07/22 14:52 Perez/IV: Voiding Method Condom Catheter Active Medications - Current Medications Current Medications: Generic Name Dose Route Start Last Admin Trade Name Freq PRN Reason Stop Dose Admin Acetaminophen 650 mg 04/02/22 23:53 04/16/22 12:16 Acetaminophen 325 Mg Tab PO 650 mg Q6H PRN Administration Pain MILD(1-3)/Fever >100.5/FAITH Albuterol 2.5 mg 04/06/22 16:00 04/20/22 07:29 Albuterol 2.5 Mg/3 Ml Nebu IH 2.5 mg Q8HRT SEGUNDO Administration Bisacodyl 10 mg 04/07/22 09:44 04/12/22 10:06 Bisacodyl 10 Mg Rect Supp SD 10 mg QDAY PRN Administration Constipation Dextrose 50 ml 04/06/22 17:54 Dextrose 50% In Water (25gm) 50 Ml Syringe IV Q30MIN PRN Hypoglycemia Protocol Docusate Sodium 100 mg 04/03/22 15:00 04/20/22 09:11 Docusate Sodium 100 Mg/10 Ml Oral Liqd PO 100 mg BID SEGUNDO Administration Famotidine 20 mg 04/06/22 10:00 04/20/22 09:11 Famotidine 20 Mg Tab FEEDTUBE 20 mg BID SEGUNDO Administration Fentanyl 50 mcg 04/04/22 15:56 04/16/22 13:31 Fentanyl 100 Mcg/2 Ml Inj IV 50 mcg Q2HR PRN Administration For CPOT of greater than 3 Heparin Sodium (Porcine) 5,000 unit 04/03/22 06:00 04/20/22 13:37 Heparin 5,000 Unit/1 Ml Vial SUB-Q 5,000 unit Q8HR SEGUNDO Administration Dexmedetomidine HCl 400 mcg/ 104 mls @ 2.434 mls/hr 04/03/22 07:00 04/14/22 14:55 Sodium Chloride IV 0 mcg/kg/hr TITRATE SEGUNDO 0 mls/hr Titration Protocol 0.2 MCG/KG/HR Insulin Human Regular 0 units 04/06/22 18:00 04/20/22 11:48 Insulin Regular, Human 100 Units/1 Ml SUB-Q Not Given Q6H SEGUNDO Protocol Magnesium Hydroxide 30 ml 04/02/22 23:53 Magnesium Hydroxide (Mom) Oral Liqd Udc PO Q4H PRN Constipation Metoprolol Tartrate 25 mg 04/16/22 18:00 04/20/22 12:16 Metoprolol Tartrate 25 Mg Tab FEEDTUBE 25 mg Q6HR SEGUNDO Administration Ondansetron HCl 4 mg 04/02/22 23:53 Ondansetron 4 Mg/2 Ml Inj IV Q8H PRN Nausea And Vomiting Polyethylene Glycol 17 gm 04/08/22 10:00 04/20/22 09:11 Polyethylene Glycol 3350 17 Gm Powder PO 17 gm QDAY SEGUNDO Administration Quetiapine Fumarate 50 mg 04/12/22 14:01 04/19/22 22:01 Quetiapine 25 Mg Tab PO 50 mg QHS SEGUNDO Administration Quetiapine Fumarate 100 mg 04/18/22 06:00 04/20/22 05:33 Quetiapine 100 Mg Tab PO 100 mg 0600,1600 SEGUNDO Administration Senna 17.6 mg 04/03/22 22:00 04/20/22 09:11 Sennosides Oral Liqd 8.8 Mg/5 Ml Oral Liqd PO 17.6 mg Q12HR SEGUNDO Administration Sodium Chloride 10 ml 04/03/22 10:00 04/20/22 09:11 Sodium Chloride 0.9% 10 Ml Flush Syringe IV 10 ml BID SEGUNDO Administration Sodium Chloride 10 ml 04/02/22 23:53 Sodium Chloride 0.9% 10 Ml Flush Syringe IV PRN PRN LINE FLUSH Nutrition/Malnutrition Assess - Dietary Evaluation Nutrition/Malnutrition Findings: Nutrition Notes Start: 04/04/22 13:13 Freq: Status: Active Protocol: Document 04/20/22 11:36 COLLEEN (Rec: 04/20/22 12:00 COLLEEN [id number]) Nutrition Notes Initial or Follow up Reassessment Current Diagnosis Coronary Artery Disease, Respiratory Failure, Malnutrition Other Pertinent Diagnosis HCAP, HFpEF, ALS, Pleural Effusion, R-Lung Collapse, Hypotension, ... Current Diet TF-Vital AF 1.2 Inderjit @ 50 ml/hr (since D 04/15). Labs/Tests 04/19: Cl 96.2, CO2 40, BUN 24 , Crea <0.2, Glu 125, Ca 8.3. Pertinent Medications 04/20: Nutritionally unremarkable. Height 5 ft 4.8 in Weight 46.8 kg [place] Body Weight (kg) 61.27 BMI 17.2 Weight change and time frame No body weight change reported in 2 weeks. Weight Status Underweight Subjective/Other Information RD consult for routine F/U on TF tolerance/continuation. TF continues as prescribed, and well tolerated, according to RN notes. RN note on 04/20/22 06:13: No acute changes throughout night . Trach intact to vent, with Fi02 @ 55%. Peg intact with patient tolerating tube feedings as ordered. Vitals stable. Currently 93/53, 93, 14, 95%. Pt continues on Mechanical ventilation, O2 saturation @ 96%, according to Physical Assessment Histroy notes. Pt presents constipation, according to Physical Assessment Histroy notes. Tracheostomy and PEG tube placement on 04/15, well tolerated, according to Progress notes. LTAC placement still pending. Percent of energy/protein needs met: Prescribed TF-Vital AF 1.2 Inderjit @ 50 ml/hr provides for energy/protein needs (1,450 Kcal/91 g) during LOS, 98% Kcal; 100% AA. Burn Absent Trauma Absent GI Symptoms Constipation Difficulty In Swallowing,Chewing Food Allergy No Skin Integrity/Comment Sacral open wound. Current % PO Other Minimum of two criteria No #1 Nutrition Diagnosis Inadequate oral intake Diagnosis Progress(for reassessment Continues documentation) Is patient on ventilator? Yes Is Patient Ambulatory and/or Out of Bed No REE-([facility]-confined to bed) [phone] Calculation Used for Recommendations [facility] Additional Notes Protein: 1.2-2 g/Kg IBW; 73- 122 g/day. Fluids: 1 ml/Kcal, or as per MD. Nutrition Intervention Nutrition Support: Continue TF-Vital AF 1.2 Inderjit @ 50 ml/hr. Flush: 80 ml water Q 4 hr, or as per MD. Kcal 1,450 Protein (gm) 91 Carbohydrates (gm) 134 Fat (gm) 65 Fluid (mL) 980 Fiber (gm) 6 % RDI: 98% Kcal; 100% AA. Goal #1 Provide at least 75% of energy /protein needs through Enteral Feeding during LOS. Follow-Up By: 04/27/22 Additional Comments Continue monitoring TF tolerance and BM. <NORM GRAYSON - Last Filed: 04/28/22 14:39> Assessment and Plan Assessment and plan: I saw and evaluated the patient. Discussed with the nurse practitioner and agree with their findings and plan as documented in this note. Hospitalist Physical - Constitutional Vitals: Temp Pulse Resp BP Pulse Ox 99.1 F 109 H 15 111/66 100 04/28/22 11:43 04/28/22 13:00 04/28/22 13:00 04/28/22 13:00 04/28/22 13:00 HEART Score - HEART Score Troponin: Troponin T 0.031 ng/mL (0.00-0.029) H 04/08/22 17:47 Results - Labs CBC & Chem 7: 04/26/22 04:22 04/26/22 04:22 Labs: Laboratory Last Values WBC 10.0 K/mm3 (4.5-11.0) 04/26/22 04:22 RBC 2.88 M/mm3 (3.65-5.03) L 04/26/22 04:22 Hgb 8.9 gm/dl (11.8-15.2) L 04/26/22 04:22 Hct 26.8 % (35.5-45.6) L 04/26/22 04:22 MCV 93 fl (84-94) 04/26/22 04:22 MCH 31 pg (28-32) 04/26/22 04:22 MCHC 33 % (32-34) 04/26/22 04:22 RDW 13.8 % (13.2-15.2) 04/26/22 04:22 Plt Count 376 K/mm3 (140-440) 04/26/22 04:22 Lymph % (Auto) 4.3 % (13.4-35.0) L 04/07/22 03:51 [place] % (Auto) 8.8 % (0.0-7.3) H 04/07/22 03:51 Eos % (Auto) 0.1 % (0.0-4.3) 04/07/22 03:51 Baso % (Auto) 0.2 % (0.0-1.8) 04/07/22 03:51 Lymph # (Auto) 0.6 K/mm3 (1.2-5.4) L 04/07/22 03:51 Pine # (Auto) 1.3 K/mm3 (0.0-0.8) H 04/07/22 03:51 Eos # (Auto) 0.0 K/mm3 (0.0-0.4) 04/07/22 03:51 Baso # (Auto) 0.0 K/mm3 (0.0-0.1) 04/07/22 03:51 Add Manual Diff Complete 04/02/22 19:39 Total Counted 100 04/02/22 19:39 Seg Neutrophils % 86.6 % (40.0-70.0) H 04/07/22 03:51 Seg Neuts % (Manual) 94.0 % (40.0-70.0) H 04/02/22 19:39 Band Neutrophils % 0 % 04/02/22 19:39 Lymphocytes % (Manual) 1.0 % (13.4-35.0) L 04/02/22 19:39 Reactive Lymphs % (Man) 0 % 04/02/22 19:39 Monocytes % (Manual) 5.0 % (0.0-7.3) 04/02/22 19:39 Eosinophils % (Manual) 0 % (0.0-4.3) 04/02/22 19:39 Basophils % (Manual) 0 % (0.0-1.8) 04/02/22 19:39 Metamyelocytes % 0 % 04/02/22 19:39 Myelocytes % 0 % 04/02/22 19:39 Promyelocytes % 0 % 04/02/22 19:39 Blast Cells % 0 % 04/02/22 19:39 Nucleated RBC % Not Reportable 04/02/22 19:39 Seg Neutrophils # 12.7 K/mm3 (1.8-7.7) H 04/07/22 03:51 Seg Neutrophils # Man 13.4 K/mm3 (1.8-7.7) H 04/02/22 19:39 Band Neutrophils # 0.0 K/mm3 04/02/22 19:39 Lymphocytes # (Manual) 0.1 K/mm3 (1.2-5.4) L 04/02/22 19:39 Abs React Lymphs (Man) 0.0 K/mm3 04/02/22 19:39 Monocytes # (Manual) 0.7 K/mm3 (0.0-0.8) 04/02/22 19:39 Eosinophils # (Manual) 0.0 K/mm3 (0.0-0.4) 04/02/22 19:39 Basophils # (Manual) 0.0 K/mm3 (0.0-0.1) 04/02/22 19:39 Metamyelocytes # 0.0 K/mm3 04/02/22 19:39 Myelocytes # 0.0 K/mm3 04/02/22 19:39 Promyelocytes # 0.0 K/mm3 04/02/22 19:39 Blast Cells # 0.0 K/mm3 04/02/22 19:39 WBC Morphology Not Reportable 04/02/22 19:39 Hypersegmented Neuts Not Reportable 04/02/22 19:39 Hyposegmented Neuts Not Reportable 04/02/22 19:39 Hypogranular Neuts Not Reportable 04/02/22 19:39 Smudge Cells Not Reportable 04/02/22 19:39 Toxic Granulation Not Reportable 04/02/22 19:39 Toxic Vacuolation Not Reportable 04/02/22 19:39 Dohle Bodies Not Reportable 04/02/22 19:39 Pelger-Huet Anomaly Not Reportable 04/02/22 19:39 Terry Rods Not Reportable 04/02/22 19:39 Platelet Estimate Consistent w auto 04/02/22 19:39 Clumped Platelets Not Reportable 04/02/22 19:39 Plt Clumps, EDTA Not Reportable 04/02/22 19:39 Large Platelets Not Reportable 04/02/22 19:39 Giant Platelets Not Reportable 04/02/22 19:39 Platelet Satelliting Not Reportable 04/02/22 19:39 Plt Morphology Comment Not Reportable 04/02/22 19:39 RBC Morphology Not Reportable 04/02/22 19:39 Dimorphic RBCs Not Reportable 04/02/22 19:39 Polychromasia Not Reportable 04/02/22 19:39 Hypochromasia Not Reportable 04/02/22 19:39 Poikilocytosis Not Reportable 04/02/22 19:39 Anisocytosis 1+ 04/02/22 19:39 Microcytosis Not Reportable 04/02/22 19:39 Macrocytosis Not Reportable 04/02/22 19:39 Spherocytes Not Reportable 04/02/22 19:39 Pappenheimer Bodies Not Reportable 04/02/22 19:39 Sickle Cells Not Reportable 04/02/22 19:39 Target Cells Not Reportable 04/02/22 19:39 Tear Drop Cells Not Reportable 04/02/22 19:39 Ovalocytes Not Reportable 04/02/22 19:39 Helmet Cells Not Reportable 04/02/22 19:39 [place] Bodies Not Reportable 04/02/22 19:39 [place] Rings Not Reportable 04/02/22 19:39 Cheikh Cells Not Reportable 04/02/22 19:39 Bite Cells Not Reportable 04/02/22 19:39 Crenated Cell Not Reportable 04/02/22 19:39 Elliptocytes Not Reportable 04/02/22 19:39 Acanthocytes (Spur) Not Reportable 04/02/22 19:39 Rouleaux Not Reportable 04/02/22 19:39 Hemoglobin C Crystals Not Reportable 04/02/22 19:39 Schistocytes Not Reportable 04/02/22 19:39 Malaria parasites Not Reportable 04/02/22 19:39 [place] Bodies Not Reportable 04/02/22 19:39 Hem Pathologist Commnt No 04/02/22 19:39 PT 13.6 Sec. (12.2-14.9) 04/13/22 04:30 INR 0.94 (0.87-1.13) 04/13/22 04:30 APTT 35.7 Sec. (24.2-36.6) 04/07/22 03:51 ABG pH 7.457 pH Units (7.350-7.450) H 04/25/22 09:00 ABG pCO2 61.7 mm Hg 04/25/22 09:00 ABG pO2 66.7 mm Hg (80.0-90.0) L 04/25/22 09:00 ABG HCO3 42.6 mmol/L (20.0-26.0) H 04/25/22 09:00 ABG O2 Saturation 95.7 % (95.0-99.0) 04/25/22 09:00 ABG O2 Content 20.0 (0.0-44) 04/25/22 09:00 ABG Base Excess 15.3 mmol/L (-2.0-3.0) H 04/25/22 09:00 ABG Hemoglobin 8.8 gm/dl (14.0-18.0) L 04/25/22 09:00 ABG Carboxyhemoglobin 1.3 % (0.0-5.0) 04/25/22 09:00 ABG Methemoglobin 0.4 % (0.0-1.5) 04/25/22 09:00 Oxyhemoglobin 94.1 % (95.0-99.0) L 04/25/22 09:00 FiO2 35 % 04/25/22 09:00 Sodium 137 mmol/L (137-145) 04/26/22 04:22 Potassium 4.3 mmol/L (3.6-5.0) 04/26/22 04:22 Chloride 93.2 mmol/L (98-107) L 04/26/22 04:22 Carbon Dioxide 37 mmol/L (22-30) H 04/26/22 04:22 Anion Gap 11 mmol/L 04/26/22 04:22 BUN 16 mg/dL (9-20) 04/26/22 04:22 Creatinine < 0.2 mg/dL (0.8-1.3) L 04/26/22 04:22 Estimated GFR > 60 ml/min 04/26/22 04:22 BUN/Creatinine Ratio 80 % 04/26/22 04:22 Glucose 114 mg/dL (75-100) H 04/26/22 04:22 POC Glucose 128 mg/dL (70-105) H 04/20/22 11:40 Lactic Acid 1.90 mmol/L (0.7-2.0) 04/02/22 19:39 Calcium 8.5 mg/dL (8.4-10.2) 04/26/22 04:22 Phosphorus 3.60 mg/dL (2.5-4.5) 04/26/22 04:22 Magnesium 1.90 mg/dL (1.7-2.3) 04/26/22 04:22 Total Bilirubin 0.80 mg/dL (0.1-1.2) 04/02/22 19:39 AST 15 units/L (5-40) 04/02/22 19:39 ALT 9 units/L (7-56) 04/02/22 19:39 Alkaline Phosphatase 43 units/L (35-129) 04/02/22 19:39 Total Creatine Kinase 46 units/L (55-170) L 04/08/22 17:47 CK-MB (CK-2) 2.6 ng/mL (0.0-4.0) 04/08/22 17:47 CK-MB (CK-2) Rel Index 5.6 (0-4) H 04/08/22 17:47 Troponin T 0.031 ng/mL (0.00-0.029) H 04/08/22 17:47 C-Reactive Protein 31.60 mg/dL (0.00-1.30) H 04/04/22 04:18 Total Protein 4.6 g/dL (6.3-8.2) L 04/02/22 19:39 Albumin 2.7 g/dL (3.9-5) L 04/02/22 19:39 Albumin/Globulin Ratio 1.4 % 04/02/22 19:39 Triglycerides 80 mg/dL (2-149) 04/02/22 19:39 Cholesterol 94 mg/dL (50-199) 04/02/22 19:39 LDL Cholesterol Direct 27 mg/dL (50-130) L 04/02/22 19:39 HDL Cholesterol 47 mg/dL (40-59) 04/02/22 19:39 Cholesterol/HDL Ratio 2.00 % 04/02/22 19:39 Procalcitonin 0.08 ng/mL (<0.15) 04/04/22 04:18 Urine Color Aracely (Yellow) 04/05/22 17:45 Urine Turbidity Cloudy (Clear) 04/05/22 17:45 Urine pH 5.0 (5.0-7.0) 04/05/22 17:45 Ur Specific [place] 1.021 (1.003-1.030) 04/05/22 17:45 Urine Protein 30 mg/dl mg/dL (Negative) 04/05/22 17:45 Urine Glucose (UA) Neg mg/dL (Negative) 04/05/22 17:45 Urine Ketones Tr mg/dL (Negative) 04/05/22 17:45 Urine Blood Sm (Negative) 04/05/22 17:45 Urine Nitrite Neg (Negative) 04/05/22 17:45 Urine Bilirubin Neg (Negative) 04/05/22 17:45 Urine Urobilinogen < 2.0 mg/dL (<2.0) 04/05/22 17:45 Ur Leukocyte Esterase Tr (Negative) 04/05/22 17:45 Urine WBC (Auto) 8.0 /HPF (0.0-6.0) H 04/05/22 17:45 Urine RBC (Auto) 3.0 /HPF (0.0-6.0) 04/05/22 17:45 U Epithel Cells (Auto) 2.0 /HPF (0-13.0) 04/05/22 17:45 Urine Bacteria (Auto) 1+ /HPF (Negative) 04/02/22 Unknown Hyaline Casts 1 /LPF 04/05/22 17:45 Urine Mucus 3+ /HPF 04/05/22 17:45 Nasal Screen MRSA (PCR) Negative (Negative) 04/05/22 12:37 Vancomycin Trough 6.0 ug/mL (5.0-20.0) 04/05/22 18:53 Coronavirus (PCR) Negative (Negative) 04/07/22 14:52 Perez/IV: Voiding Method Condom Catheter Active Medications - Current Medications Current Medications: Generic Name Dose Route Start Last Admin Trade Name Freq PRN Reason Stop Dose Admin Acetaminophen 650 mg 04/02/22 23:53 04/21/22 16:23 Acetaminophen 325 Mg Tab PO 650 mg Q6H PRN Administration Pain MILD(1-3)/Fever >100.5/FAITH Acetylcysteine 200 mg 04/21/22 16:00 04/28/22 07:15 Acetylcysteine 20% 200 Mg/1 Ml *For Inhalation Use* INHALATION 200 mg Q8HRT SEGUNDO Administration Albuterol 2.5 mg 04/06/22 16:00 04/28/22 07:14 Albuterol 2.5 Mg/3 Ml Nebu IH 2.5 mg Q8HRT SEGUNDO Administration Bisacodyl 10 mg 04/07/22 09:44 04/12/22 10:06 Bisacodyl 10 Mg Rect Supp SD 10 mg QDAY PRN Administration Constipation Dextrose 50 ml 04/06/22 17:54 Dextrose 50% In Water (25gm) 50 Ml Syringe IV Q30MIN PRN Hypoglycemia Protocol Docusate Sodium 100 mg 04/28/22 10:00 04/28/22 09:24 Docusate Sodium 100 Mg/10 Ml Oral Liqd FEEDTUBE 100 mg BID SEGUNDO Administration Famotidine 20 mg 04/06/22 10:00 04/28/22 09:24 Famotidine 20 Mg Tab FEEDTUBE 20 mg BID SEGUNDO Administration Fentanyl 50 mcg 04/04/22 15:56 04/23/22 17:00 Fentanyl 100 Mcg/2 Ml Inj IV 50 mcg Q2HR PRN Administration For CPOT of greater than 3 Heparin Sodium (Porcine) 5,000 unit 04/03/22 06:00 04/28/22 13:38 Heparin 5,000 Unit/1 Ml Vial SUB-Q 5,000 unit Q8HR SEGUNDO Administration Insulin Human Regular 0 units 04/06/22 18:00 04/28/22 13:39 Insulin Regular, Human 100 Units/1 Ml SUB-Q Not Given Q6H SEGUNDO Protocol Magnesium Hydroxide 30 ml 04/02/22 23:53 Magnesium Hydroxide (Mom) Oral Liqd Udc PO Q4H PRN Constipation Metoprolol Tartrate 25 mg 04/16/22 18:00 04/28/22 12:25 Metoprolol Tartrate 25 Mg Tab FEEDTUBE 25 mg Q6HR SEGUNDO Administration Ondansetron HCl 4 mg 04/02/22 23:53 Ondansetron 4 Mg/2 Ml Inj IV Q8H PRN Nausea And Vomiting Polyethylene Glycol 17 gm 04/08/22 10:00 04/28/22 09:24 Polyethylene Glycol 3350 17 Gm Powder PO 17 gm QDAY SEGUNDO Administration Quetiapine Fumarate 50 mg 04/28/22 10:00 04/28/22 09:25 Quetiapine 25 Mg Tab FEEDTUBE 50 mg BID SEGUNDO Administration Senna 17.6 mg 04/28/22 10:00 04/28/22 09:24 Sennosides Oral Liqd 8.8 Mg/5 Ml Oral Liqd FEEDTUBE 17.6 mg Q12HR SEGUNDO Administration Sodium Chloride 10 ml 04/03/22 10:00 04/28/22 09:26 Sodium Chloride 0.9% 10 Ml Flush Syringe IV 10 ml BID SEGUNDO Administration Sodium Chloride 10 ml 04/02/22 23:53 Sodium Chloride 0.9% 10 Ml Flush Syringe IV PRN PRN LINE FLUSH Nutrition/Malnutrition Assess - Dietary Evaluation Nutrition/Malnutrition Findings: Nutrition Notes Start: 04/04/22 13:13 Freq: Status: Active Protocol: Document 04/27/22 11:53 COLLEEN (Rec: 04/27/22 12:21 COLLEEN [email or web address]) Nutrition Notes Initial or Follow up Reassessment Current Diagnosis Coronary Artery Disease, Decubitus(Pressure Ulcer), Sepsis,Respiratory Failure, Malnutrition Other Pertinent Diagnosis HCAP, HFpEF, ALS, Pleural Effusion, R-Lung Collapse, .. . Current Diet TF-Vital AF 1.2 Inderjit @ 50 ml/hr (since D 04/15). Labs/Tests 04/27: Cl 93.2, CO2 37, Crea < 0.2, Glu 114. Pertinent Medications 04/27: Nutritionally unremarkable. Height 5 ft 4.8 in Weight 46.8 kg [place] Body Weight (kg) 61.27 BMI 17.2 Weight change and time frame No body weight change reported in 3 weeks. Weight Status Underweight Subjective/Other Information RD consult for routine F/U on TF tolerance/continuation. TF continues as prescribed, and well tolerated, according to RN notes. Pt continues on Mechanical ventilation, O2 saturation @ 96%, according to Physical Assessment Histroy notes. Pt continues to present constipation, according to Physical Assessment Histroy notes. 3 failed attempts to wean Pt from Mechanical Ventilation, Pt is back to previous settings in [facility], according to RN notes. Pt is pending authorization for LTAC placement, according to Progress notes. Percent of energy/protein needs met: Prescribed TF-Vital AF 1.2 Inderjit @ 50 ml/hr provides for energy/protein needs (1,450 Kcal/91 g) during LOS, 98% Kcal; 100% AA. Burn Absent Trauma Absent GI Symptoms Constipation Difficulty In Swallowing,Chewing Food Allergy No Skin Integrity/Comment Sacral open wound. Current % PO Other Minimum of two criteria No #1 Nutrition Diagnosis Inadequate oral intake Diagnosis Progress(for reassessment Continues documentation) Is patient on ventilator? Yes Is Patient Ambulatory and/or Out of Bed No REE-([place]. Jeor-confined to bed) 2682.088 Calculation Used for Recommendations [place] or Additional Notes Protein: 1.2-2 g/Kg IBW; 73- 122 g/day. Fluids: 1 ml/Kcal, or as per MD. Nutrition Intervention Nutrition Support: Continue TF-Vital AF 1.2 Inderjit @ 50 ml/hr. Flush: 80 ml water Q 4 hr, or as per MD. Kcal 1,450 Protein (gm) 91 Carbohydrates (gm) 134 Fat (gm) 65 Fluid (mL) 980 Fiber (gm) 6 % RDI: 98% Kcal; 100% AA. Goal #1 Provide at least 75% of energy /protein needs through Enteral Feeding during LOS. Follow-Up By: 05/04/22 Additional Comments Continue monitoring TF tolerance and BM.
--- NOTE | 2022-04-20 16:31 | Progress Note ---
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 Right lung hemiopacification- Atelectasis s/p Bronchoscopy Oropharyngeal dysphagia s/p PEG Protein calorie malnutrition Acute Bronchopneumonia HCAP Hypotension NSTEMI H/o Amyotrophic Lateral Sclerosis Nonverbal at Baseline Trach care, airway clearance, Continue with medical management of atelectasis- continue with bronchodilators and chest PT Resume Mucomyst, USS of left lung, plan for thoracentesis if there is sig nificant fluid on USS Volume resuscitate, hold Metoprolol Decrease sedation and anxieolytics CXR,ABG as clinically indicated -Titrate supplemental oxygen to keep SpO2 89-92% -VAP bundle addressed, aspiration precautions HOB >40 -Lung protective strategies -Daily assessment for readiness to wean. -Monitoring renal function, hemodynamics and electrolyte profile -Accuchecks with glycemic control. target blood glucose 140-180 mg/dL. Avoid hypoglycemia -Continue enteric nutritional support, bowel regimen -VTE prophylaxis- Heparin -Avoid nephrotoxins and renally dose all medications -Stress ulcer prophylaxis- Famotidine -Mobility, frequent turning, off loading per facility protocol to prevent pressure ulcers -Maintain sleep wake cycle, avoid benzodiazepines. -Limit delirium CONDITION:CRITICAL PROGNOSIS: GUARDED CODE STATUS; FULL CODE The high probability of a clinically significant, sudden or life threatening deterioration of the respiratory, cardiovascular, neurology system required my full and direct attention, intervention and personal management. The aggregate critical care time was [33] minutes. This time is in addition to time spent performing reported procedures but includes the following: [x] Data Review and interpretation [x] Patient assessment and monitoring of vital signs [x] Documentation [x] Medication orders and management Subjective Date of service: 04/20/22 Principal diagnosis: Ac and ch hypercapnic and hypoxemic Resp Failure; ALS; HCAP; Sepsis; NSTEMI Interval history: Follow up for : Acute and chronic Respiratory Failure with Hypoxia and Hyper capnia 2/2 ALS;Protein calorie malnutrition;Acute Bronchopneumonia; HCAP; Hypotension; NSTEMI; Hypernatremia; Acute Metabolic Encephalopathy; H/o Amyotrophic Lateral Sclerosis Patient seen and examined. Vitals, labs, medications, chart and imaging reviewed. Discussed with respiratory and nursing care staff. s/p trach and PEG. On PEEP 8 and FIO2 60 % Episodes of desaturations today associated with hypotension Left lung lower lobe atelectasis with pleural effusion on imaging Right lung on imaging remains expanded No reported fevers, less responsive Objective Vital Signs - 12hr 04/20/22 04/20/22 04/20/22 05:00 05:33 06:00 Temperature Pulse Rate 105 H 100 H 88 Pulse Rate [ Anterior Bilateral Throughout] Pulse Rate [ Anterior Right] Pulse Rate [ From Monitor] Respiratory 14 14 Rate Respiratory Rate [Anterior Bilateral Throughout] Respiratory Rate [Anterior Right] Blood Pressure 108/63 106/64 93/53 O2 Sat by Pulse 96 95 Oximetry O2 Sat by Pulse Oximetry [ Assessment] 04/20/22 04/20/22 04/20/22 07:00 07:42 08:00 Temperature 99.3 F Pulse Rate 98 H 101 H 108 H Pulse Rate [ 99 H Anterior Bilateral Throughout] Pulse Rate [ 99 H Anterior Right] Pulse Rate [ From Monitor] Respiratory 14 14 Rate Respiratory 14 Rate [Anterior Bilateral Throughout] Respiratory 14 Rate [Anterior Right] Blood Pressure 90/52 100/58 112/67 O2 Sat by Pulse 93 96 99 Oximetry O2 Sat by Pulse Oximetry [ Assessment] 04/20/22 04/20/22 04/20/22 08:28 08:29 08:36 Temperature Pulse Rate 93 H Pulse Rate [ Anterior Bilateral Throughout] Pulse Rate [ Anterior Right] Pulse Rate [ 110 H From Monitor] Respiratory 18 Rate Respiratory Rate [Anterior Bilateral Throughout] Respiratory Rate [Anterior Right] Blood Pressure O2 Sat by Pulse 96 Oximetry O2 Sat by Pulse 96 Oximetry [ Assessment] 04/20/22 04/20/22 04/20/22 09:00 10:00 11:00 Temperature Pulse Rate 108 H 114 H 113 H Pulse Rate [ Anterior Bilateral Throughout] Pulse Rate [ Anterior Right] Pulse Rate [ From Monitor] Respiratory 14 14 14 Rate Respiratory Rate [Anterior Bilateral Throughout] Respiratory Rate [Anterior Right] Blood Pressure 118/65 123/76 117/73 O2 Sat by Pulse 95 91 93 Oximetry O2 Sat by Pulse Oximetry [ Assessment] 04/20/22 04/20/22 04/20/22 11:15 11:46 11:47 Temperature 98.1 F Pulse Rate 104 H 112 H Pulse Rate [ Anterior Bilateral Throughout] Pulse Rate [ Anterior Right] Pulse Rate [ From Monitor] Respiratory Rate Respiratory Rate [Anterior Bilateral Throughout] Respiratory Rate [Anterior Right] Blood Pressure 100/58 O2 Sat by Pulse 96 Oximetry O2 Sat by Pulse Oximetry [ Assessment] 04/20/22 04/20/22 04/20/22 12:00 12:16 13:00 Temperature Pulse Rate 114 H 115 H 101 H Pulse Rate [ Anterior Bilateral Throughout] Pulse Rate [ Anterior Right] Pulse Rate [ 97 H From Monitor] Respiratory 16 14 Rate Respiratory Rate [Anterior Bilateral Throughout] Respiratory Rate [Anterior Right] Blood Pressure 133/81 131/81 119/76 O2 Sat by Pulse 87 89 Oximetry O2 Sat by Pulse Oximetry [ Assessment] 04/20/22 04/20/22 04/20/22 14:00 15:00 15:15 Temperature Pulse Rate 100 H 106 H 109 H Pulse Rate [ Anterior Bilateral Throughout] Pulse Rate [ Anterior Right] Pulse Rate [ From Monitor] Respiratory 14 14 Rate Respiratory Rate [Anterior Bilateral Throughout] Respiratory Rate [Anterior Right] Blood Pressure 120/71 118/69 118/69 O2 Sat by Pulse 93 95 95 Oximetry O2 Sat by Pulse Oximetry [ Assessment] 04/20/22 04/20/22 04/20/22 15:24 15:32 16:00 Temperature 99.2 F Pulse Rate 108 H Pulse Rate [ 107 H Anterior Bilateral Throughout] Pulse Rate [ 109 H Anterior Right] Pulse Rate [ From Monitor] Respiratory 15 Rate Respiratory 14 Rate [Anterior Bilateral Throughout] Respiratory 20 Rate [Anterior Right] Blood Pressure 112/60 O2 Sat by Pulse 89 Oximetry O2 Sat by Pulse 95 Oximetry [ Assessment] Constitutional: no acute distress, lethargic, other (trach to MVS in bed with mildly increased respiratory effort at rest) Eyes: non-icteric ENT: oropharynx moist Neck: supple, no lymphadenopathy, no JVD, other (RIJ CVL) Effort: mildly labored Ascultation: Bilateral: diminished breath sounds (R>L base), rhonchi (basilar predominant) Percussion: Bilateral: not dull Cardiovascular: regular rate and rhythm, other (S1,S2) Gastrointestinal: normoactive bowel sounds, soft, non-tender, non-distended, other (PEG) Integumentary: normal Extremities: no cyanosis, no edema, pink and warm, pulses normal Neurologic: pupils equal and round, other (functional quadriplegia) Psychiatric: anxious CBC and BMP: 04/20/22 04:49 04/19/22 04:08 ABG, PT/INR, D-dimer: ABG ABG pH 7.419 pH Units (7.350-7.450) 04/19/22 08:50 ABG pCO2 74.5 mm Hg 04/19/22 08:50 ABG pO2 56.0 mm Hg (80.0-90.0) L 04/19/22 08:50 ABG O2 Saturation 93.3 % (95.0-99.0) L 04/19/22 08:50 PT/INR, D-dimer PT 13.6 Sec. (12.2-14.9) 04/13/22 04:30 INR 0.94 (0.87-1.13) 04/13/22 04:30 Abnormal lab findings: Abnormal Labs 04/02/22 04/02/22 04/02/22 19:39 19:39 19:39 WBC 14.3 H RBC Hgb Hct MCV 96 H Plt Count 104 L Lymph % (Auto) Wilkin % (Auto) Lymph # (Auto) [place] # (Auto) Seg Neutrophils % Seg Neuts % (Manual) 94.0 H Lymphocytes % (Manual) 1.0 L Seg Neutrophils # Seg Neutrophils # Man 13.4 H Lymphocytes # (Manual) 0.1 L PT 15.9 H INR 1.14 H ABG pH ABG pO2 ABG HCO3 ABG O2 Saturation ABG Base Excess ABG Hemoglobin Oxyhemoglobin Sodium 151 H Potassium Chloride Carbon Dioxide BUN Creatinine 0.5 L Glucose POC Glucose Calcium 8.2 L Phosphorus Magnesium 1.60 L Total Creatine Kinase CK-MB (CK-2) Rel Index Troponin T 0.048 H C-Reactive Protein Total Protein 4.6 L Albumin 2.7 L LDL Cholesterol Direct 27 L Urine WBC (Auto) 04/02/22 04/03/22 04/03/22 19:42 05:14 06:30 WBC RBC Hgb Hct MCV Plt Count Lymph % (Auto) [place]kin % (Auto) Lymph # (Auto) [place] # (Auto) Seg Neutrophils % Seg Neuts % (Manual) Lymphocytes % (Manual) Seg Neutrophils # Seg Neutrophils # Man Lymphocytes # (Manual) PT INR ABG pH 7.471 H 7.496 H ABG pO2 47.8 L 91.0 H ABG HCO3 30.6 H ABG O2 Saturation 94.4 L ABG Base Excess 6.2 H ABG Hemoglobin 11.0 L 12.8 L Oxyhemoglobin 93.1 L Sodium 149 H Potassium 3.4 L Chloride Carbon Dioxide BUN Creatinine 0.4 L Glucose POC Glucose Calcium Phosphorus Magnesium Total Creatine Kinase CK-MB (CK-2) Rel Index Troponin T C-Reactive Protein Total Protein Albumin LDL Cholesterol Direct Urine WBC (Auto) 04/04/22 04/04/22 04/04/22 04:18 04:18 05:50 WBC 11.8 H RBC Hgb Hct MCV Plt Count 132 L Lymph % (Auto) [place] % (Auto) Lymph # (Auto) [place] # (Auto) Seg Neutrophils % Seg Neuts % (Manual) Lymphocytes % (Manual) Seg Neutrophils # Seg Neutrophils # Man Lymphocytes # (Manual) PT INR ABG pH 7.517 H ABG pO2 115.5 H ABG HCO3 29.9 H ABG O2 Saturation ABG Base Excess 6.7 H ABG Hemoglobin 12.3 L Oxyhemoglobin Sodium Potassium 3.5 L Chloride Carbon Dioxide 31 H BUN Creatinine 0.3 L Glucose 153 H POC Glucose Calcium Phosphorus 1.40 L Magnesium 1.50 L Total Creatine Kinase CK-MB (CK-2) Rel Index Troponin T C-Reactive Protein 31.60 H Total Protein Albumin LDL Cholesterol Direct Urine WBC (Auto) 04/05/22 04/05/22 04/05/22 02:50 05:25 11:28 WBC RBC Hgb Hct MCV Plt Count Lymph % (Auto) [place] % (Auto) Lymph # (Auto) [place] # (Auto) Seg Neutrophils % Seg Neuts % (Manual) Lymphocytes % (Manual) Seg Neutrophils # Seg Neutrophils # Man Lymphocytes # (Manual) PT INR ABG pH 7.455 H ABG pO2 50.7 L ABG HCO3 30.5 H ABG O2 Saturation 89.4 L ABG Base Excess 5.9 H ABG Hemoglobin 11.8 L Oxyhemoglobin 88.2 L Sodium Potassium Chloride Carbon Dioxide 32 H BUN Creatinine 0.2 L Glucose 110 H POC Glucose 124 H Calcium 7.9 L Phosphorus Magnesium Total Creatine Kinase CK-MB (CK-2) Rel Index Troponin T C-Reactive Protein Total Protein Albumin LDL Cholesterol Direct Urine WBC (Auto) 04/05/22 04/05/22 04/06/22 17:45 Unknown 04:00 WBC RBC 3.55 L Hgb 11.1 L 11.5 L Hct 33.2 L 35.1 L MCV Plt Count 113 L 114 L Lymph % (Auto) [place] % (Auto) Lymph # (Auto) [place] # (Auto) Seg Neutrophils % Seg Neuts % (Manual) Lymphocytes % (Manual) Seg Neutrophils # Seg Neutrophils # Man Lymphocytes # (Manual) PT INR ABG pH ABG pO2 ABG HCO3 ABG O2 Saturation ABG Base Excess ABG Hemoglobin Oxyhemoglobin Sodium Potassium Chloride Carbon Dioxide BUN Creatinine Glucose POC Glucose Calcium Phosphorus Magnesium Total Creatine Kinase CK-MB (CK-2) Rel Index Troponin T C-Reactive Protein Total Protein Albumin LDL Cholesterol Direct Urine WBC (Auto) 8.0 H 04/06/22 04/06/22 04/07/22 04:00 08:30 00:04 WBC RBC Hgb Hct MCV Plt Count Lymph % (Auto) [place] % (Auto) Lymph # (Auto) [place] # (Auto) Seg Neutrophils % Seg Neuts % (Manual) Lymphocytes % (Manual) Seg Neutrophils # Seg Neutrophils # Man Lymphocytes # (Manual) PT INR ABG pH ABG pO2 60.8 L ABG HCO3 30.5 H ABG O2 Saturation 93.3 L ABG Base Excess 4.9 H ABG Hemoglobin 12.4 L Oxyhemoglobin 92.1 L Sodium Potassium 3.0 L Chloride Carbon Dioxide BUN Creatinine < 0.2 L Glucose 130 H POC Glucose 117 H Calcium 8.1 L Phosphorus Magnesium Total Creatine Kinase CK-MB (CK-2) Rel Index Troponin T C-Reactive Protein Total Protein Albumin LDL Cholesterol Direct Urine WBC (Auto) 04/07/22 04/07/22 04/07/22 03:51 03:51 03:51 WBC 14.6 H RBC 3.57 L Hgb 11.1 L Hct 33.2 L MCV Plt Count 118 L Lymph % (Auto) 4.3 L [place] % (Auto) 8.8 H Lymph # (Auto) 0.6 L [place] # (Auto) 1.3 H Seg Neutrophils % 86.6 H Seg Neuts % (Manual) Lymphocytes % (Manual) Seg Neutrophils # 12.7 H Seg Neutrophils # Man Lymphocytes # (Manual) PT 15.2 H INR ABG pH ABG pO2 ABG HCO3 ABG O2 Saturation ABG Base Excess ABG Hemoglobin Oxyhemoglobin Sodium 133 L Potassium Chloride 96.0 L Carbon Dioxide 31 H BUN Creatinine 0.2 L Glucose 130 H POC Glucose Calcium 8.0 L Phosphorus Magnesium Total Creatine Kinase CK-MB (CK-2) Rel Index Troponin T C-Reactive Protein Total Protein Albumin LDL Cholesterol Direct Urine WBC (Auto) 04/07/22 04/07/22 04/08/22 04:25 09:10 04:49 WBC 16.1 H RBC 3.54 L Hgb 10.9 L Hct 33.3 L MCV Plt Count Lymph % (Auto) [place] % (Auto) Lymph # (Auto) [place] # (Auto) Seg Neutrophils % Seg Neuts % (Manual) Lymphocytes % (Manual) Seg Neutrophils # Seg Neutrophils # Man Lymphocytes # (Manual) PT INR ABG pH ABG pO2 71.0 L 63.4 L ABG HCO3 31.5 H 40.0 H ABG O2 Saturation 94.9 L ABG Base Excess 5.9 H 13.6 H ABG Hemoglobin 11.3 L 9.0 L Oxyhemoglobin 93.6 L Sodium Potassium Chloride Carbon Dioxide BUN Creatinine Glucose POC Glucose Calcium Phosphorus Magnesium Total Creatine Kinase CK-MB (CK-2) Rel Index Troponin T C-Reactive Protein Total Protein Albumin LDL Cholesterol Direct Urine WBC (Auto) 04/08/22 04/08/22 04/08/22 04:49 09:53 10:25 WBC RBC Hgb Hct MCV Plt Count Lymph % (Auto) [place] % (Auto) Lymph # (Auto) [place] # (Auto) Seg Neutrophils % Seg Neuts % (Manual) Lymphocytes % (Manual) Seg Neutrophils # Seg Neutrophils # Man Lymphocytes # (Manual) PT INR ABG pH ABG pO2 ABG HCO3 34.7 H ABG O2 Saturation ABG Base Excess 7.9 H ABG Hemoglobin 11.0 L Oxyhemoglobin Sodium 136 L Potassium Chloride 97.7 L Carbon Dioxide 33 H BUN Creatinine 0.2 L Glucose 155 H POC Glucose Calcium Phosphorus Magnesium Total Creatine Kinase CK-MB (CK-2) Rel Index Troponin T 0.030 H C-Reactive Protein Total Protein Albumin LDL Cholesterol Direct Urine WBC (Auto) 04/08/22 04/08/22 04/08/22 11:19 17:47 18:06 WBC RBC Hgb Hct MCV Plt Count Lymph % (Auto) [place] % (Auto) Lymph # (Auto) [place] # (Auto) Seg Neutrophils % Seg Neuts % (Manual) Lymphocytes % (Manual) Seg Neutrophils # Seg Neutrophils # Man Lymphocytes # (Manual) PT INR ABG pH ABG pO2 ABG HCO3 ABG O2 Saturation ABG Base Excess ABG Hemoglobin Oxyhemoglobin Sodium Potassium Chloride Carbon Dioxide BUN Creatinine Glucose POC Glucose 121 H Calcium Phosphorus Magnesium Total Creatine Kinase 31 L 46 L CK-MB (CK-2) Rel Index 6.4 H 5.6 H Troponin T 0.030 H 0.031 H C-Reactive Protein Total Protein Albumin LDL Cholesterol Direct Urine WBC (Auto) 04/09/22 04/09/22 04/09/22 04:35 04:35 11:24 WBC 11.5 H RBC 3.16 L Hgb 9.9 L Hct 29.4 L MCV Plt Count 131 L Lymph % (Auto) [place] % (Auto) Lymph # (Auto) [place] # (Auto) Seg Neutrophils % Seg Neuts % (Manual) Lymphocytes % (Manual) Seg Neutrophils # Seg Neutrophils # Man Lymphocytes # (Manual) PT INR ABG pH ABG pO2 ABG HCO3 ABG O2 Saturation ABG Base Excess ABG Hemoglobin Oxyhemoglobin Sodium Potassium Chloride 97.1 L Carbon Dioxide 35 H BUN Creatinine < 0.2 L Glucose 145 H POC Glucose 147 H Calcium Phosphorus Magnesium Total Creatine Kinase CK-MB (CK-2) Rel Index Troponin T C-Reactive Protein Total Protein Albumin LDL Cholesterol Direct Urine WBC (Auto) 04/09/22 04/09/22 04/09/22 13:00 17:32 23:48 WBC RBC Hgb Hct MCV Plt Count Lymph % (Auto) [place] % (Auto) Lymph # (Auto) [place] # (Auto) Seg Neutrophils % Seg Neuts % (Manual) Lymphocytes % (Manual) Seg Neutrophils # Seg Neutrophils # Man Lymphocytes # (Manual) PT INR ABG pH ABG pO2 66.6 L ABG HCO3 38.2 H ABG O2 Saturation 94.4 L ABG Base Excess 10.7 H ABG Hemoglobin 10.7 L Oxyhemoglobin 92.8 L Sodium Potassium Chloride Carbon Dioxide BUN Creatinine Glucose POC Glucose 143 H 114 H Calcium Phosphorus Magnesium Total Creatine Kinase CK-MB (CK-2) Rel Index Troponin T C-Reactive Protein Total Protein Albumin LDL Cholesterol Direct Urine WBC (Auto) 04/10/22 04/10/22 04/10/22 04:48 04:48 05:34 WBC RBC 2.91 L Hgb 9.1 L Hct 27.7 L MCV 95 H Plt Count Lymph % (Auto) [place] % (Auto) Lymph # (Auto) [place] # (Auto) Seg Neutrophils % Seg Neuts % (Manual) Lymphocytes % (Manual) Seg Neutrophils # Seg Neutrophils # Man Lymphocytes # (Manual) PT INR ABG pH ABG pO2 ABG HCO3 ABG O2 Saturation ABG Base Excess ABG Hemoglobin Oxyhemoglobin Sodium Potassium Chloride 95.7 L Carbon Dioxide 38 H BUN Creatinine < 0.2 L Glucose 118 H POC Glucose 127 H Calcium Phosphorus Magnesium Total Creatine Kinase CK-MB (CK-2) Rel Index Troponin T C-Reactive Protein Total Protein Albumin LDL Cholesterol Direct Urine WBC (Auto) 04/10/22 04/11/22 04/11/22 23:10 04:15 04:15 WBC 17.2 H RBC 2.98 L Hgb 9.2 L Hct 27.9 L MCV Plt Count Lymph % (Auto) [place] % (Auto) Lymph # (Auto) [place] # (Auto) Seg Neutrophils % Seg Neuts % (Manual) Lymphocytes % (Manual) Seg Neutrophils # Seg Neutrophils # Man Lymphocytes # (Manual) PT INR ABG pH ABG pO2 ABG HCO3 ABG O2 Saturation ABG Base Excess ABG Hemoglobin Oxyhemoglobin Sodium Potassium Chloride 96.1 L Carbon Dioxide 35 H BUN Creatinine < 0.2 L Glucose 138 H POC Glucose 106 H Calcium 8.3 L Phosphorus Magnesium Total Creatine Kinase CK-MB (CK-2) Rel Index Troponin T C-Reactive Protein Total Protein Albumin LDL Cholesterol Direct Urine WBC (Auto) 04/11/22 04/11/22 04/11/22 05:31 13:18 16:20 WBC RBC Hgb Hct MCV Plt Count Lymph % (Auto) [place] % (Auto) Lymph # (Auto) [place] # (Auto) Seg Neutrophils % Seg Neuts % (Manual) Lymphocytes % (Manual) Seg Neutrophils # Seg Neutrophils # Man Lymphocytes # (Manual) PT INR ABG pH ABG pO2 57.8 L ABG HCO3 40.5 H ABG O2 Saturation 90.6 L ABG Base Excess 12.6 H ABG Hemoglobin 10.5 L Oxyhemoglobin 89.0 L Sodium Potassium Chloride Carbon Dioxide BUN Creatinine Glucose POC Glucose 129 H 132 H Calcium Phosphorus Magnesium Total Creatine Kinase CK-MB (CK-2) Rel Index Troponin T C-Reactive Protein Total Protein Albumin LDL Cholesterol Direct Urine WBC (Auto) 04/11/22 04/11/22 04/12/22 17:29 23:17 04:00 WBC 17.4 H RBC 2.96 L Hgb 9.0 L Hct 28.0 L MCV 95 H Plt Count Lymph % (Auto) [place] % (Auto) Lymph # (Auto) [place] # (Auto) Seg Neutrophils % Seg Neuts % (Manual) Lymphocytes % (Manual) Seg Neutrophils # Seg Neutrophils # Man Lymphocytes # (Manual) PT INR ABG pH ABG pO2 ABG HCO3 ABG O2 Saturation ABG Base Excess ABG Hemoglobin Oxyhemoglobin Sodium Potassium Chloride Carbon Dioxide BUN Creatinine Glucose POC Glucose 125 H 151 H Calcium Phosphorus Magnesium Total Creatine Kinase CK-MB (CK-2) Rel Index Troponin T C-Reactive Protein Total Protein Albumin LDL Cholesterol Direct Urine WBC (Auto) 04/12/22 04/12/22 04/12/22 04:00 17:03 23:39 WBC RBC Hgb Hct MCV Plt Count Lymph % (Auto) [place] % (Auto) Lymph # (Auto) [place] # (Auto) Seg Neutrophils % Seg Neuts % (Manual) Lymphocytes % (Manual) Seg Neutrophils # Seg Neutrophils # Man Lymphocytes # (Manual) PT INR ABG pH ABG pO2 ABG HCO3 ABG O2 Saturation ABG Base Excess ABG Hemoglobin Oxyhemoglobin Sodium Potassium Chloride 97.4 L Carbon Dioxide 37 H BUN Creatinine < 0.2 L Glucose 127 H POC Glucose 106 H 107 H Calcium Phosphorus Magnesium Total Creatine Kinase CK-MB (CK-2) Rel Index Troponin T C-Reactive Protein Total Protein Albumin LDL Cholesterol Direct Urine WBC (Auto) 04/13/22 04/13/22 04/13/22 04:30 04:30 17:39 WBC 14.1 H RBC 2.66 L Hgb 8.4 L Hct 25.5 L MCV 96 H Plt Count Lymph % (Auto) [place] % (Auto) Lymph # (Auto) [place] # (Auto) Seg Neutrophils % Seg Neuts % (Manual) Lymphocytes % (Manual) Seg Neutrophils # Seg Neutrophils # Man Lymphocytes # (Manual) PT INR ABG pH ABG pO2 ABG HCO3 ABG O2 Saturation ABG Base Excess ABG Hemoglobin Oxyhemoglobin Sodium Potassium Chloride 93.9 L Carbon Dioxide 39 H BUN Creatinine < 0.2 L Glucose POC Glucose 134 H Calcium Phosphorus 1.90 L Magnesium Total Creatine Kinase CK-MB (CK-2) Rel Index Troponin T C-Reactive Protein Total Protein Albumin LDL Cholesterol Direct Urine WBC (Auto) 04/14/22 04/14/22 04/14/22 05:03 05:03 09:10 WBC 15.6 H RBC 3.02 L Hgb 9.3 L Hct 28.8 L MCV 95 H Plt Count Lymph % (Auto) [place] % (Auto) Lymph # (Auto) [place] # (Auto) Seg Neutrophils % Seg Neuts % (Manual) Lymphocytes % (Manual) Seg Neutrophils # Seg Neutrophils # Man Lymphocytes # (Manual) PT INR ABG pH ABG pO2 66.9 L ABG HCO3 44.5 H ABG O2 Saturation ABG Base Excess 17.2 H ABG Hemoglobin 8.1 L Oxyhemoglobin 94.8 L Sodium Potassium Chloride 93.8 L Carbon Dioxide 42 H* BUN Creatinine < 0.2 L Glucose 117 H POC Glucose Calcium Phosphorus Magnesium Total Creatine Kinase CK-MB (CK-2) Rel Index Troponin T C-Reactive Protein Total Protein Albumin LDL Cholesterol Direct Urine WBC (Auto) 04/15/22 04/15/22 04/16/22 04:44 04:44 04:16 WBC 13.0 H 12.6 H RBC 3.19 L 3.09 L Hgb 9.6 L 9.5 L Hct 30.2 L 29.1 L MCV 95 H Plt Count 456 H Lymph % (Auto) [place] % (Auto) Lymph # (Auto) [place] # (Auto) Seg Neutrophils % Seg Neuts % (Manual) Lymphocytes % (Manual) Seg Neutrophils # Seg Neutrophils # Man Lymphocytes # (Manual) PT INR ABG pH ABG pO2 ABG HCO3 ABG O2 Saturation ABG Base Excess ABG Hemoglobin Oxyhemoglobin Sodium Potassium Chloride 95.5 L Carbon Dioxide 37 H BUN Creatinine < 0.2 L Glucose POC Glucose Calcium Phosphorus Magnesium Total Creatine Kinase CK-MB (CK-2) Rel Index Troponin T C-Reactive Protein Total Protein Albumin LDL Cholesterol Direct Urine WBC (Auto) 04/16/22 04/16/22 04/16/22 04:16 05:00 14:00 WBC RBC Hgb Hct MCV Plt Count Lymph % (Auto) [place] % (Auto) Lymph # (Auto) [place] # (Auto) Seg Neutrophils % Seg Neuts % (Manual) Lymphocytes % (Manual) Seg Neutrophils # Seg Neutrophils # Man Lymphocytes # (Manual) PT INR ABG pH 7.324 L ABG pO2 55.6 L ABG HCO3 45.3 H ABG O2 Saturation 87.1 L ABG Base Excess 16.6 H ABG Hemoglobin 8.6 L Oxyhemoglobin 85.7 L Sodium Potassium Chloride 97.6 L Carbon Dioxide 36 H BUN Creatinine < 0.2 L Glucose 109 H POC Glucose 120 H Calcium Phosphorus Magnesium Total Creatine Kinase CK-MB (CK-2) Rel Index Troponin T C-Reactive Protein Total Protein Albumin LDL Cholesterol Direct Urine WBC (Auto) 04/17/22 04/17/22 04/17/22 04:36 04:36 04:57 WBC 14.4 H RBC 3.08 L Hgb 9.4 L Hct 29.0 L MCV Plt Count Lymph % (Auto) [place] % (Auto) Lymph # (Auto) [place] # (Auto) Seg Neutrophils % Seg Neuts % (Manual) Lymphocytes % (Manual) Seg Neutrophils # Seg Neutrophils # Man Lymphocytes # (Manual) PT INR ABG pH ABG pO2 ABG HCO3 ABG O2 Saturation ABG Base Excess ABG Hemoglobin Oxyhemoglobin Sodium Potassium Chloride 95.9 L Carbon Dioxide 39 H BUN Creatinine < 0.2 L Glucose 140 H POC Glucose 137 H Calcium 8.3 L Phosphorus Magnesium Total Creatine Kinase CK-MB (CK-2) Rel Index Troponin T C-Reactive Protein Total Protein Albumin LDL Cholesterol Direct Urine WBC (Auto) 04/17/22 04/17/22 04/18/22 09:15 18:01 04:20 WBC 11.2 H RBC 3.00 L Hgb 9.3 L Hct 28.6 L MCV 95 H Plt Count Lymph % (Auto) [place] % (Auto) Lymph # (Auto) [place] # (Auto) Seg Neutrophils % Seg Neuts % (Manual) Lymphocytes % (Manual) Seg Neutrophils # Seg Neutrophils # Man Lymphocytes # (Manual) PT INR ABG pH 7.345 L ABG pO2 ABG HCO3 48.2 H ABG O2 Saturation ABG Base Excess 19.2 H ABG Hemoglobin 9.7 L Oxyhemoglobin Sodium Potassium Chloride Carbon Dioxide BUN Creatinine Glucose POC Glucose 129 H Calcium Phosphorus Magnesium Total Creatine Kinase CK-MB (CK-2) Rel Index Troponin T C-Reactive Protein Total Protein Albumin LDL Cholesterol Direct Urine WBC (Auto) 04/18/22 04/18/22 04/18/22 04:20 17:35 23:50 WBC RBC Hgb Hct MCV Plt Count Lymph % (Auto) [place] % (Auto) Lymph # (Auto) [place] # (Auto) Seg Neutrophils % Seg Neuts % (Manual) Lymphocytes % (Manual) Seg Neutrophils # Seg Neutrophils # Man Lymphocytes # (Manual) PT INR ABG pH ABG pO2 ABG HCO3 ABG O2 Saturation ABG Base Excess ABG Hemoglobin Oxyhemoglobin Sodium Potassium Chloride 96.8 L Carbon Dioxide 43 H* BUN 22 H Creatinine < 0.2 L Glucose 137 H POC Glucose 128 H 123 H Calcium 8.2 L Phosphorus Magnesium Total Creatine Kinase CK-MB (CK-2) Rel Index Troponin T C-Reactive Protein Total Protein Albumin LDL Cholesterol Direct Urine WBC (Auto) 04/19/22 04/19/22 04/19/22 04:08 04:08 08:50 WBC 16.8 H RBC 3.18 L Hgb 9.8 L Hct 30.1 L MCV 95 H Plt Count Lymph % (Auto) [place] % (Auto) Lymph # (Auto) [place] # (Auto) Seg Neutrophils % Seg Neuts % (Manual) Lymphocytes % (Manual) Seg Neutrophils # Seg Neutrophils # Man Lymphocytes # (Manual) PT INR ABG pH ABG pO2 56.0 L ABG HCO3 47.1 H ABG O2 Saturation 93.3 L ABG Base Excess 20.1 H ABG Hemoglobin 8.0 L Oxyhemoglobin 91.8 L Sodium Potassium Chloride 96.2 L Carbon Dioxide 40 H BUN 24 H Creatinine < 0.2 L Glucose 125 H POC Glucose Calcium 8.3 L Phosphorus Magnesium Total Creatine Kinase CK-MB (CK-2) Rel Index Troponin T C-Reactive Protein Total Protein Albumin LDL Cholesterol Direct Urine WBC (Auto) 04/19/22 04/20/22 04/20/22 12:02 00:40 04:49 WBC 14.7 H RBC 3.36 L Hgb 10.3 L Hct 32.0 L MCV 95 H Plt Count Lymph % (Auto) [place] % (Auto) Lymph # (Auto) [place] # (Auto) Seg Neutrophils % Seg Neuts % (Manual) Lymphocytes % (Manual) Seg Neutrophils # Seg Neutrophils # Man Lymphocytes # (Manual) PT INR ABG pH ABG pO2 ABG HCO3 ABG O2 Saturation ABG Base Excess ABG Hemoglobin Oxyhemoglobin Sodium Potassium Chloride Carbon Dioxide BUN Creatinine Glucose POC Glucose 124 H 140 H Calcium Phosphorus Magnesium Total Creatine Kinase CK-MB (CK-2) Rel Index Troponin T C-Reactive Protein Total Protein Albumin LDL Cholesterol Direct Urine WBC (Auto) 04/20/22 04/20/22 05:36 11:40 WBC RBC Hgb Hct MCV Plt Count Lymph % (Auto) Wilkin % (Auto) Lymph # (Auto) Wilkin # (Auto) Seg Neutrophils % Seg Neuts % (Manual) Lymphocytes % (Manual) Seg Neutrophils # Seg Neutrophils # Man Lymphocytes # (Manual) PT INR ABG pH ABG pO2 ABG HCO3 ABG O2 Saturation ABG Base Excess ABG Hemoglobin Oxyhemoglobin Sodium Potassium Chloride Carbon Dioxide BUN Creatinine Glucose POC Glucose 125 H 128 H Calcium Phosphorus Magnesium Total Creatine Kinase CK-MB (CK-2) Rel Index Troponin T C-Reactive Protein Total Protein Albumin LDL Cholesterol Direct Urine WBC (Auto) Chest x-ray: image reviewed Allied health notes reviewed: RT
[2022-04-20] MEDS ORDERED: SODIUM CHLORIDE 0.9% 500 ML 500 ML IV ONE (17:44)
[2022-04-21] MEDS: METOPROLOL TARTRATE 25 MG TAB FEEDTUBE SCH ×4 (00:24→18:13)
[2022-04-21] MEDS: INSULIN REGULAR, HUMAN 100 UNITS/1 ML SUB-Q SCH ×4 (00:30→18:14)
[2022-04-21] MEDS: ALBUTEROL 2.5 MG/3 ML NEBU IH SCH ×3 (00:30→16:16)
[2022-04-21 05:10] LABS: Blood Urea Nitrogen 25 mg/dL (9-20); Calcium 8.4 mg/dL (8.4-10.2); Hemolysis Index 1
[2022-04-21 05:23] LABS: BUN/Creatinine Ratio 125
[2022-04-21] MEDS: HEPARIN 5,000 UNIT/1 ML VIAL SUB-Q SCH ×3 (05:54→21:10)
[2022-04-21] MEDS: ACETYLCYSTEINE 20% SOLN 4ML (200 MG/ML) IH SCH ×2 (07:30→10:03)
--- NOTE | 2022-04-21 08:02 | Progress Note ---
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 Right lung hemiopacification- Atelectasis s/p Bronchoscopy Oropharyngeal dysphagia s/p PEG Protein calorie malnutrition Acute Bronchopneumonia HCAP Hypotension NSTEMI H/o Amyotrophic Lateral Sclerosis Nonverbal at Baseline Trach care, airway clearance, Continue with medical management of atelectasis- continue with bronchodilators and chest PT Decrease sedation and anxieolytics CXR,ABG as clinically indicated Discharge planning -Titrate supplemental oxygen to keep SpO2 89-92% -VAP bundle addressed, aspiration precautions HOB >40 -Lung protective strategies -Daily assessment for readiness to wean. -Monitoring renal function, hemodynamics and electrolyte profile -Accuchecks with glycemic control. target blood glucose 140-180 mg/dL. Avoid hypoglycemia -Continue enteric nutritional support, bowel regimen -VTE prophylaxis- Heparin -Avoid nephrotoxins and renally dose all medications -Stress ulcer prophylaxis- Famotidine -Mobility, frequent turning, off loading per facility protocol to prevent pr essure ulcers -Maintain sleep wake cycle, avoid benzodiazepines. -Limit delirium CONDITION:CRITICAL PROGNOSIS: GUARDED CODE STATUS; FULL CODE The high probability of a clinically significant, sudden or life threatening deterioration of the respiratory, cardiovascular, neurology system required my full and direct attention, intervention and personal management. The aggregate critical care time was [33] minutes. 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 Vitals, labs, medications, chart and imaging reviewed. Discussed with respiratory and nursing care staff. s/p trach and PEG. On PEEP 8 and FIO2 55 % No reported fevers, no vomiting, no diarrhea Objective Vital Signs - 12hr 04/20/22 04/20/22 04/20/22 21:00 22:00 23:00 Temperature Pulse Rate 112 H 89 97 H Pulse Rate [ Anterior Bilateral Throughout] Pulse Rate [ Anterior Right] Pulse Rate [ 96 H From Monitor] Respiratory 14 14 14 Rate Respiratory Rate [Anterior Bilateral Throughout] Respiratory Rate [Anterior Right] Blood Pressure 108/66 97/56 107/60 O2 Sat by Pulse 92 94 96 Oximetry O2 Sat by Pulse Oximetry [ Assessment] 04/20/22 04/21/22 04/21/22 23:17 00:00 00:24 Temperature 99.6 F Pulse Rate 100 H 93 H 86 Pulse Rate [ 101 H Anterior Bilateral Throughout] Pulse Rate [ 101 H Anterior Right] Pulse Rate [ From Monitor] Respiratory 14 14 Rate Respiratory 14 Rate [Anterior Bilateral Throughout] Respiratory 14 Rate [Anterior Right] Blood Pressure 107/60 112/67 102/56 O2 Sat by Pulse 96 98 Oximetry O2 Sat by Pulse 98 Oximetry [ Assessment] 04/21/22 04/21/22 04/21/22 01:00 02:00 03:00 Temperature Pulse Rate 82 73 90 Pulse Rate [ Anterior Bilateral Throughout] Pulse Rate [ Anterior Right] Pulse Rate [ 98 H From Monitor] Respiratory 14 15 14 Rate Respiratory Rate [Anterior Bilateral Throughout] Respiratory Rate [Anterior Right] Blood Pressure 96/55 116/60 97/58 O2 Sat by Pulse 95 91 94 Oximetry O2 Sat by Pulse Oximetry [ Assessment] 04/21/22 04/21/22 04/21/22 03:46 04:00 05:00 Temperature 99.7 F H Pulse Rate 90 99 H Pulse Rate [ Anterior Bilateral Throughout] Pulse Rate [ Anterior Right] Pulse Rate [ 91 H From Monitor] Respiratory 13 14 Rate Respiratory Rate [Anterior Bilateral Throughout] Respiratory Rate [Anterior Right] Blood Pressure 94/61 103/62 O2 Sat by Pulse 98 96 Oximetry O2 Sat by Pulse Oximetry [ Assessment] 04/21/22 04/21/22 04/21/22 06:00 07:36 07:43 Temperature Pulse Rate 94 H 97 H Pulse Rate [ Anterior Bilateral Throughout] Pulse Rate [ 104 H Anterior Right] Pulse Rate [ From Monitor] Respiratory 14 Rate Respiratory Rate [Anterior Bilateral Throughout] Respiratory 14 Rate [Anterior Right] Blood Pressure 125/74 105/72 O2 Sat by Pulse 97 97 Oximetry O2 Sat by Pulse Oximetry [ Assessment] 04/21/22 07:56 Temperature Pulse Rate Pulse Rate [ Anterior Bilateral Throughout] Pulse Rate [ Anterior Right] Pulse Rate [ From Monitor] Respiratory Rate Respiratory Rate [Anterior Bilateral Throughout] Respiratory Rate [Anterior Right] Blood Pressure O2 Sat by Pulse Oximetry O2 Sat by Pulse 97 Oximetry [ Assessment] Constitutional: no acute distress, lethargic, other (trach to MVS in bed with m ildly increased respiratory effort at rest) Eyes: non-icteric ENT: oropharynx moist Neck: supple, no lymphadenopathy, no JVD, other (RIJ CVL) Effort: mildly labored Ascultation: Bilateral: diminished breath sounds (R>L base), rhonchi (basilar predominant) Percussion: Bilateral: not dull Cardiovascular: regular rate and rhythm, other (S1,S2) Gastrointestinal: normoactive bowel sounds, soft, non-tender, non-distended, other (PEG) Integumentary: normal Extremities: no cyanosis, no edema, pink and warm, pulses normal Neurologic: pupils equal and round, other (functional quadriplegia) Psychiatric: anxious CBC and BMP: 04/22/22 05:03 04/22/22 05:03 ABG, PT/INR, D-dimer: ABG ABG pH 7.419 pH Units (7.350-7.450) 04/19/22 08:50 ABG pCO2 74.5 mm Hg 04/19/22 08:50 ABG pO2 56.0 mm Hg (80.0-90.0) L 04/19/22 08:50 ABG O2 Saturation 93.3 % (95.0-99.0) L 04/19/22 08:50 PT/INR, D-dimer PT 13.6 Sec. (12.2-14.9) 04/13/22 04:30 INR 0.94 (0.87-1.13) 04/13/22 04:30 Abnormal lab findings: Abnormal Labs 04/02/22 04/02/22 04/02/22 19:39 19:39 19:39 WBC 14.3 H RBC Hgb Hct MCV 96 H Plt Count 104 L Lymph % (Auto) Moore % (Auto) Lymph # (Auto) Moore # (Auto) Seg Neutrophils % Seg Neuts % (Manual) 94.0 H Lymphocytes % (Manual) 1.0 L Seg Neutrophils # Seg Neutrophils # Man 13.4 H Lymphocytes # (Manual) 0.1 L PT 15.9 H INR 1.14 H ABG pH ABG pO2 ABG HCO3 ABG O2 Saturation ABG Base Excess ABG Hemoglobin Oxyhemoglobin Sodium 151 H Potassium Chloride Carbon Dioxide BUN Creatinine 0.5 L Glucose POC Glucose Calcium 8.2 L Phosphorus Magnesium 1.60 L Total Creatine Kinase CK-MB (CK-2) Rel Index Troponin T 0.048 H C-Reactive Protein Total Protein 4.6 L Albumin 2.7 L LDL Cholesterol Direct 27 L Urine WBC (Auto) 04/02/22 04/03/22 04/03/22 19:42 05:14 06:30 WBC RBC Hgb Hct MCV Plt Count Lymph % (Auto) Moore % (Auto) Lymph # (Auto) Moore # (Auto) Seg Neutrophils % Seg Neuts % (Manual) Lymphocytes % (Manual) Seg Neutrophils # Seg Neutrophils # Man Lymphocytes # (Manual) PT INR ABG pH 7.471 H 7.496 H ABG pO2 47.8 L 91.0 H ABG HCO3 30.6 H ABG O2 Saturation 94.4 L ABG Base Excess 6.2 H ABG Hemoglobin 11.0 L 12.8 L Oxyhemoglobin 93.1 L Sodium 149 H Potassium 3.4 L Chloride Carbon Dioxide BUN Creatinine 0.4 L Glucose POC Glucose Calcium Phosphorus Magnesium Total Creatine Kinase CK-MB (CK-2) Rel Index Troponin T C-Reactive Protein Total Protein Albumin LDL Cholesterol Direct Urine WBC (Auto) 04/04/22 04/04/22 04/04/22 04:18 04:18 05:50 WBC 11.8 H RBC Hgb Hct MCV Plt Count 132 L Lymph % (Auto) Moore % (Auto) Lymph # (Auto) Moore # (Auto) Seg Neutrophils % Seg Neuts % (Manual) Lymphocytes % (Manual) Seg Neutrophils # Seg Neutrophils # Man Lymphocytes # (Manual) PT INR ABG pH 7.517 H ABG pO2 115.5 H ABG HCO3 29.9 H ABG O2 Saturation ABG Base Excess 6.7 H ABG Hemoglobin 12.3 L Oxyhemoglobin Sodium Potassium 3.5 L Chloride Carbon Dioxide 31 H BUN Creatinine 0.3 L Glucose 153 H POC Glucose Calcium Phosphorus 1.40 L Magnesium 1.50 L Total Creatine Kinase CK-MB (CK-2) Rel Index Troponin T C-Reactive Protein 31.60 H Total Protein Albumin LDL Cholesterol Direct Urine WBC (Auto) 04/05/22 04/05/22 04/05/22 02:50 05:25 11:28 WBC RBC Hgb Hct MCV Plt Count Lymph % (Auto) Moore % (Auto) Lymph # (Auto) Moore # (Auto) Seg Neutrophils % Seg Neuts % (Manual) Lymphocytes % (Manual) Seg Neutrophils # Seg Neutrophils # Man Lymphocytes # (Manual) PT INR ABG pH 7.455 H ABG pO2 50.7 L ABG HCO3 30.5 H ABG O2 Saturation 89.4 L ABG Base Excess 5.9 H ABG Hemoglobin 11.8 L Oxyhemoglobin 88.2 L Sodium Potassium Chloride Carbon Dioxide 32 H BUN Creatinine 0.2 L Glucose 110 H POC Glucose 124 H Calcium 7.9 L Phosphorus Magnesium Total Creatine Kinase CK-MB (CK-2) Rel Index Troponin T C-Reactive Protein Total Protein Albumin LDL Cholesterol Direct Urine WBC (Auto) 04/05/22 04/05/22 04/06/22 17:45 Unknown 04:00 WBC RBC 3.55 L Hgb 11.1 L 11.5 L Hct 33.2 L 35.1 L MCV Plt Count 113 L 114 L Lymph % (Auto) Moore % (Auto) Lymph # (Auto) Moore # (Auto) Seg Neutrophils % Seg Neuts % (Manual) Lymphocytes % (Manual) Seg Neutrophils # Seg Neutrophils # Man Lymphocytes # (Manual) PT INR ABG pH ABG pO2 ABG HCO3 ABG O2 Saturation ABG Base Excess ABG Hemoglobin Oxyhemoglobin Sodium Potassium Chloride Carbon Dioxide BUN Creatinine Glucose POC Glucose Calcium Phosphorus Magnesium Total Creatine Kinase CK-MB (CK-2) Rel Index Troponin T C-Reactive Protein Total Protein Albumin LDL Cholesterol Direct Urine WBC (Auto) 8.0 H 04/06/22 04/06/22 04/07/22 04:00 08:30 00:04 WBC RBC Hgb Hct MCV Plt Count Lymph % (Auto) Moore % (Auto) Lymph # (Auto) Moore # (Auto) Seg Neutrophils % Seg Neuts % (Manual) Lymphocytes % (Manual) Seg Neutrophils # Seg Neutrophils # Man Lymphocytes # (Manual) PT INR ABG pH ABG pO2 60.8 L ABG HCO3 30.5 H ABG O2 Saturation 93.3 L ABG Base Excess 4.9 H ABG Hemoglobin 12.4 L Oxyhemoglobin 92.1 L Sodium Potassium 3.0 L Chloride Carbon Dioxide BUN Creatinine < 0.2 L Glucose 130 H POC Glucose 117 H Calcium 8.1 L Phosphorus Magnesium Total Creatine Kinase CK-MB (CK-2) Rel Index Troponin T C-Reactive Protein Total Protein Albumin LDL Cholesterol Direct Urine WBC (Auto) 04/07/22 04/07/22 04/07/22 03:51 03:51 03:51 WBC 14.6 H RBC 3.57 L Hgb 11.1 L Hct 33.2 L MCV Plt Count 118 L Lymph % (Auto) 4.3 L Moore % (Auto) 8.8 H Lymph # (Auto) 0.6 L Moore # (Auto) 1.3 H Seg Neutrophils % 86.6 H Seg Neuts % (Manual) Lymphocytes % (Manual) Seg Neutrophils # 12.7 H Seg Neutrophils # Man Lymphocytes # (Manual) PT 15.2 H INR ABG pH ABG pO2 ABG HCO3 ABG O2 Saturation ABG Base Excess ABG Hemoglobin Oxyhemoglobin Sodium 133 L Potassium Chloride 96.0 L Carbon Dioxide 31 H BUN Creatinine 0.2 L Glucose 130 H POC Glucose Calcium 8.0 L Phosphorus Magnesium Total Creatine Kinase CK-MB (CK-2) Rel Index Troponin T C-Reactive Protein Total Protein Albumin LDL Cholesterol Direct Urine WBC (Auto) 04/07/22 04/07/22 04/08/22 04:25 09:10 04:49 WBC 16.1 H RBC 3.54 L Hgb 10.9 L Hct 33.3 L MCV Plt Count Lymph % (Auto) Moore % (Auto) Lymph # (Auto) Moore # (Auto) Seg Neutrophils % Seg Neuts % (Manual) Lymphocytes % (Manual) Seg Neutrophils # Seg Neutrophils # Man Lymphocytes # (Manual) PT INR ABG pH ABG pO2 71.0 L 63.4 L ABG HCO3 31.5 H 40.0 H ABG O2 Saturation 94.9 L ABG Base Excess 5.9 H 13.6 H ABG Hemoglobin 11.3 L 9.0 L Oxyhemoglobin 93.6 L Sodium Potassium Chloride Carbon Dioxide BUN Creatinine Glucose POC Glucose Calcium Phosphorus Magnesium Total Creatine Kinase CK-MB (CK-2) Rel Index Troponin T C-Reactive Protein Total Protein Albumin LDL Cholesterol Direct Urine WBC (Auto) 04/08/22 04/08/22 04/08/22 04:49 09:53 10:25 WBC RBC Hgb Hct MCV Plt Count Lymph % (Auto) Moore % (Auto) Lymph # (Auto) Moore # (Auto) Seg Neutrophils % Seg Neuts % (Manual) Lymphocytes % (Manual) Seg Neutrophils # Seg Neutrophils # Man Lymphocytes # (Manual) PT INR ABG pH ABG pO2 ABG HCO3 34.7 H ABG O2 Saturation ABG Base Excess 7.9 H ABG Hemoglobin 11.0 L Oxyhemoglobin Sodium 136 L Potassium Chloride 97.7 L Carbon Dioxide 33 H BUN Creatinine 0.2 L Glucose 155 H POC Glucose Calcium Phosphorus Magnesium Total Creatine Kinase CK-MB (CK-2) Rel Index Troponin T 0.030 H C-Reactive Protein Total Protein Albumin LDL Cholesterol Direct Urine WBC (Auto) 04/08/22 04/08/22 04/08/22 11:19 17:47 18:06 WBC RBC Hgb Hct MCV Plt Count Lymph % (Auto) Moore % (Auto) Lymph # (Auto) Moore # (Auto) Seg Neutrophils % Seg Neuts % (Manual) Lymphocytes % (Manual) Seg Neutrophils # Seg Neutrophils # Man Lymphocytes # (Manual) PT INR ABG pH ABG pO2 ABG HCO3 ABG O2 Saturation ABG Base Excess ABG Hemoglobin Oxyhemoglobin Sodium Potassium Chloride Carbon Dioxide BUN Creatinine Glucose POC Glucose 121 H Calcium Phosphorus Magnesium Total Creatine Kinase 31 L 46 L CK-MB (CK-2) Rel Index 6.4 H 5.6 H Troponin T 0.030 H 0.031 H C-Reactive Protein Total Protein Albumin LDL Cholesterol Direct Urine WBC (Auto) 04/09/22 04/09/22 04/09/22 04:35 04:35 11:24 WBC 11.5 H RBC 3.16 L Hgb 9.9 L Hct 29.4 L MCV Plt Count 131 L Lymph % (Auto) Moore % (Auto) Lymph # (Auto) Moore # (Auto) Seg Neutrophils % Seg Neuts % (Manual) Lymphocytes % (Manual) Seg Neutrophils # Seg Neutrophils # Man Lymphocytes # (Manual) PT INR ABG pH ABG pO2 ABG HCO3 ABG O2 Saturation ABG Base Excess ABG Hemoglobin Oxyhemoglobin Sodium Potassium Chloride 97.1 L Carbon Dioxide 35 H BUN Creatinine < 0.2 L Glucose 145 H POC Glucose 147 H Calcium Phosphorus Magnesium Total Creatine Kinase CK-MB (CK-2) Rel Index Troponin T C-Reactive Protein Total Protein Albumin LDL Cholesterol Direct Urine WBC (Auto) 04/09/22 04/09/22 04/09/22 13:00 17:32 23:48 WBC RBC Hgb Hct MCV Plt Count Lymph % (Auto) Moore % (Auto) Lymph # (Auto) Moore # (Auto) Seg Neutrophils % Seg Neuts % (Manual) Lymphocytes % (Manual) Seg Neutrophils # Seg Neutrophils # Man Lymphocytes # (Manual) PT INR ABG pH ABG pO2 66.6 L ABG HCO3 38.2 H ABG O2 Saturation 94.4 L ABG Base Excess 10.7 H ABG Hemoglobin 10.7 L Oxyhemoglobin 92.8 L Sodium Potassium Chloride Carbon Dioxide BUN Creatinine Glucose POC Glucose 143 H 114 H Calcium Phosphorus Magnesium Total Creatine Kinase CK-MB (CK-2) Rel Index Troponin T C-Reactive Protein Total Protein Albumin LDL Cholesterol Direct Urine WBC (Auto) 04/10/22 04/10/22 04/10/22 04:48 04:48 05:34 WBC RBC 2.91 L Hgb 9.1 L Hct 27.7 L MCV 95 H Plt Count Lymph % (Auto) Moore % (Auto) Lymph # (Auto) Moore # (Auto) Seg Neutrophils % Seg Neuts % (Manual) Lymphocytes % (Manual) Seg Neutrophils # Seg Neutrophils # Man Lymphocytes # (Manual) PT INR ABG pH ABG pO2 ABG HCO3 ABG O2 Saturation ABG Base Excess ABG Hemoglobin Oxyhemoglobin Sodium Potassium Chloride 95.7 L Carbon Dioxide 38 H BUN Creatinine < 0.2 L Glucose 118 H POC Glucose 127 H Calcium Phosphorus Magnesium Total Creatine Kinase CK-MB (CK-2) Rel Index Troponin T C-Reactive Protein Total Protein Albumin LDL Cholesterol Direct Urine WBC (Auto) 04/10/22 04/11/22 04/11/22 23:10 04:15 04:15 WBC 17.2 H RBC 2.98 L Hgb 9.2 L Hct 27.9 L MCV Plt Count Lymph % (Auto) Moore % (Auto) Lymph # (Auto) Moore # (Auto) Seg Neutrophils % Seg Neuts % (Manual) Lymphocytes % (Manual) Seg Neutrophils # Seg Neutrophils # Man Lymphocytes # (Manual) PT INR ABG pH ABG pO2 ABG HCO3 ABG O2 Saturation ABG Base Excess ABG Hemoglobin Oxyhemoglobin Sodium Potassium Chloride 96.1 L Carbon Dioxide 35 H BUN Creatinine < 0.2 L Glucose 138 H POC Glucose 106 H Calcium 8.3 L Phosphorus Magnesium Total Creatine Kinase CK-MB (CK-2) Rel Index Troponin T C-Reactive Protein Total Protein Albumin LDL Cholesterol Direct Urine WBC (Auto) 04/11/22 04/11/22 04/11/22 05:31 13:18 16:20 WBC RBC Hgb Hct MCV Plt Count Lymph % (Auto) Moore % (Auto) Lymph # (Auto) Moore # (Auto) Seg Neutrophils % Seg Neuts % (Manual) Lymphocytes % (Manual) Seg Neutrophils # Seg Neutrophils # Man Lymphocytes # (Manual) PT INR ABG pH ABG pO2 57.8 L ABG HCO3 40.5 H ABG O2 Saturation 90.6 L ABG Base Excess 12.6 H ABG Hemoglobin 10.5 L Oxyhemoglobin 89.0 L Sodium Potassium Chloride Carbon Dioxide BUN Creatinine Glucose POC Glucose 129 H 132 H Calcium Phosphorus Magnesium Total Creatine Kinase CK-MB (CK-2) Rel Index Troponin T C-Reactive Protein Total Protein Albumin LDL Cholesterol Direct Urine WBC (Auto) 04/11/22 04/11/22 04/12/22 17:29 23:17 04:00 WBC 17.4 H RBC 2.96 L Hgb 9.0 L Hct 28.0 L MCV 95 H Plt Count Lymph % (Auto) Moore % (Auto) Lymph # (Auto) Moore # (Auto) Seg Neutrophils % Seg Neuts % (Manual) Lymphocytes % (Manual) Seg Neutrophils # Seg Neutrophils # Man Lymphocytes # (Manual) PT INR ABG pH ABG pO2 ABG HCO3 ABG O2 Saturation ABG Base Excess ABG Hemoglobin Oxyhemoglobin Sodium Potassium Chloride Carbon Dioxide BUN Creatinine Glucose POC Glucose 125 H 151 H Calcium Phosphorus Magnesium Total Creatine Kinase CK-MB (CK-2) Rel Index Troponin T C-Reactive Protein Total Protein Albumin LDL Cholesterol Direct Urine WBC (Auto) 04/12/22 04/12/22 04/12/22 04:00 17:03 23:39 WBC RBC Hgb Hct MCV Plt Count Lymph % (Auto) Moore % (Auto) Lymph # (Auto) Moore # (Auto) Seg Neutrophils % Seg Neuts % (Manual) Lymphocytes % (Manual) Seg Neutrophils # Seg Neutrophils # Man Lymphocytes # (Manual) PT INR ABG pH ABG pO2 ABG HCO3 ABG O2 Saturation ABG Base Excess ABG Hemoglobin Oxyhemoglobin Sodium Potassium Chloride 97.4 L Carbon Dioxide 37 H BUN Creatinine < 0.2 L Glucose 127 H POC Glucose 106 H 107 H Calcium Phosphorus Magnesium Total Creatine Kinase CK-MB (CK-2) Rel Index Troponin T C-Reactive Protein Total Protein Albumin LDL Cholesterol Direct Urine WBC (Auto) 04/13/22 04/13/22 04/13/22 04:30 04:30 17:39 WBC 14.1 H RBC 2.66 L Hgb 8.4 L Hct 25.5 L MCV 96 H Plt Count Lymph % (Auto) Moore % (Auto) Lymph # (Auto) Moore # (Auto) Seg Neutrophils % Seg Neuts % (Manual) Lymphocytes % (Manual) Seg Neutrophils # Seg Neutrophils # Man Lymphocytes # (Manual) PT INR ABG pH ABG pO2 ABG HCO3 ABG O2 Saturation ABG Base Excess ABG Hemoglobin Oxyhemoglobin Sodium Potassium Chloride 93.9 L Carbon Dioxide 39 H BUN Creatinine < 0.2 L Glucose POC Glucose 134 H Calcium Phosphorus 1.90 L Magnesium Total Creatine Kinase CK-MB (CK-2) Rel Index Troponin T C-Reactive Protein Total Protein Albumin LDL Cholesterol Direct Urine WBC (Auto) 04/14/22 04/14/22 04/14/22 05:03 05:03 09:10 WBC 15.6 H RBC 3.02 L Hgb 9.3 L Hct 28.8 L MCV 95 H Plt Count Lymph % (Auto) Moore % (Auto) Lymph # (Auto) Moore # (Auto) Seg Neutrophils % Seg Neuts % (Manual) Lymphocytes % (Manual) Seg Neutrophils # Seg Neutrophils # Man Lymphocytes # (Manual) PT INR ABG pH ABG pO2 66.9 L ABG HCO3 44.5 H ABG O2 Saturation ABG Base Excess 17.2 H ABG Hemoglobin 8.1 L Oxyhemoglobin 94.8 L Sodium Potassium Chloride 93.8 L Carbon Dioxide 42 H* BUN Creatinine < 0.2 L Glucose 117 H POC Glucose Calcium Phosphorus Magnesium Total Creatine Kinase CK-MB (CK-2) Rel Index Troponin T C-Reactive Protein Total Protein Albumin LDL Cholesterol Direct Urine WBC (Auto) 04/15/22 04/15/22 04/16/22 04:44 04:44 04:16 WBC 13.0 H 12.6 H RBC 3.19 L 3.09 L Hgb 9.6 L 9.5 L Hct 30.2 L 29.1 L MCV 95 H Plt Count 456 H Lymph % (Auto) Moore % (Auto) Lymph # (Auto) Moore # (Auto) Seg Neutrophils % Seg Neuts % (Manual) Lymphocytes % (Manual) Seg Neutrophils # Seg Neutrophils # Man Lymphocytes # (Manual) PT INR ABG pH ABG pO2 ABG HCO3 ABG O2 Saturation ABG Base Excess ABG Hemoglobin Oxyhemoglobin Sodium Potassium Chloride 95.5 L Carbon Dioxide 37 H BUN Creatinine < 0.2 L Glucose POC Glucose Calcium Phosphorus Magnesium Total Creatine Kinase CK-MB (CK-2) Rel Index Troponin T C-Reactive Protein Total Protein Albumin LDL Cholesterol Direct Urine WBC (Auto) 04/16/22 04/16/22 04/16/22 04:16 05:00 14:00 WBC RBC Hgb Hct MCV Plt Count Lymph % (Auto) Moore % (Auto) Lymph # (Auto) Moore # (Auto) Seg Neutrophils % Seg Neuts % (Manual) Lymphocytes % (Manual) Seg Neutrophils # Seg Neutrophils # Man Lymphocytes # (Manual) PT INR ABG pH 7.324 L ABG pO2 55.6 L ABG HCO3 45.3 H ABG O2 Saturation 87.1 L ABG Base Excess 16.6 H ABG Hemoglobin 8.6 L Oxyhemoglobin 85.7 L Sodium Potassium Chloride 97.6 L Carbon Dioxide 36 H BUN Creatinine < 0.2 L Glucose 109 H POC Glucose 120 H Calcium Phosphorus Magnesium Total Creatine Kinase CK-MB (CK-2) Rel Index Troponin T C-Reactive Protein Total Protein Albumin LDL Cholesterol Direct Urine WBC (Auto) 04/17/22 04/17/22 04/17/22 04:36 04:36 04:57 WBC 14.4 H RBC 3.08 L Hgb 9.4 L Hct 29.0 L MCV Plt Count Lymph % (Auto) Moore % (Auto) Lymph # (Auto) Moore # (Auto) Seg Neutrophils % Seg Neuts % (Manual) Lymphocytes % (Manual) Seg Neutrophils # Seg Neutrophils # Man Lymphocytes # (Manual) PT INR ABG pH ABG pO2 ABG HCO3 ABG O2 Saturation ABG Base Excess ABG Hemoglobin Oxyhemoglobin Sodium Potassium Chloride 95.9 L Carbon Dioxide 39 H BUN Creatinine < 0.2 L Glucose 140 H POC Glucose 137 H Calcium 8.3 L Phosphorus Magnesium Total Creatine Kinase CK-MB (CK-2) Rel Index Troponin T C-Reactive Protein Total Protein Albumin LDL Cholesterol Direct Urine WBC (Auto) 04/17/22 04/17/22 04/18/22 09:15 18:01 04:20 WBC 11.2 H RBC 3.00 L Hgb 9.3 L Hct 28.6 L MCV 95 H Plt Count Lymph % (Auto) Moore % (Auto) Lymph # (Auto) Moore # (Auto) Seg Neutrophils % Seg Neuts % (Manual) Lymphocytes % (Manual) Seg Neutrophils # Seg Neutrophils # Man Lymphocytes # (Manual) PT INR ABG pH 7.345 L ABG pO2 ABG HCO3 48.2 H ABG O2 Saturation ABG Base Excess 19.2 H ABG Hemoglobin 9.7 L Oxyhemoglobin Sodium Potassium Chloride Carbon Dioxide BUN Creatinine Glucose POC Glucose 129 H Calcium Phosphorus Magnesium Total Creatine Kinase CK-MB (CK-2) Rel Index Troponin T C-Reactive Protein Total Protein Albumin LDL Cholesterol Direct Urine WBC (Auto) 04/18/22 04/18/22 04/18/22 04:20 17:35 23:50 WBC RBC Hgb Hct MCV Plt Count Lymph % (Auto) Moore % (Auto) Lymph # (Auto) Moore # (Auto) Seg Neutrophils % Seg Neuts % (Manual) Lymphocytes % (Manual) Seg Neutrophils # Seg Neutrophils # Man Lymphocytes # (Manual) PT INR ABG pH ABG pO2 ABG HCO3 ABG O2 Saturation ABG Base Excess ABG Hemoglobin Oxyhemoglobin Sodium Potassium Chloride 96.8 L Carbon Dioxide 43 H* BUN 22 H Creatinine < 0.2 L Glucose 137 H POC Glucose 128 H 123 H Calcium 8.2 L Phosphorus Magnesium Total Creatine Kinase CK-MB (CK-2) Rel Index Troponin T C-Reactive Protein Total Protein Albumin LDL Cholesterol Direct Urine WBC (Auto) 04/19/22 04/19/22 04/19/22 04:08 04:08 08:50 WBC 16.8 H RBC 3.18 L Hgb 9.8 L Hct 30.1 L MCV 95 H Plt Count Lymph % (Auto) Moore % (Auto) Lymph # (Auto) Moore # (Auto) Seg Neutrophils % Seg Neuts % (Manual) Lymphocytes % (Manual) Seg Neutrophils # Seg Neutrophils # Man Lymphocytes # (Manual) PT INR ABG pH ABG pO2 56.0 L ABG HCO3 47.1 H ABG O2 Saturation 93.3 L ABG Base Excess 20.1 H ABG Hemoglobin 8.0 L Oxyhemoglobin 91.8 L Sodium Potassium Chloride 96.2 L Carbon Dioxide 40 H BUN 24 H Creatinine < 0.2 L Glucose 125 H POC Glucose Calcium 8.3 L Phosphorus Magnesium Total Creatine Kinase CK-MB (CK-2) Rel Index Troponin T C-Reactive Protein Total Protein Albumin LDL Cholesterol Direct Urine WBC (Auto) 04/19/22 04/20/22 04/20/22 12:02 00:40 04:49 WBC 14.7 H RBC 3.36 L Hgb 10.3 L Hct 32.0 L MCV 95 H Plt Count Lymph % (Auto) Moore % (Auto) Lymph # (Auto) Moore # (Auto) Seg Neutrophils % Seg Neuts % (Manual) Lymphocytes % (Manual) Seg Neutrophils # Seg Neutrophils # Man Lymphocytes # (Manual) PT INR ABG pH ABG pO2 ABG HCO3 ABG O2 Saturation ABG Base Excess ABG Hemoglobin Oxyhemoglobin Sodium Potassium Chloride Carbon Dioxide BUN Creatinine Glucose POC Glucose 124 H 140 H Calcium Phosphorus Magnesium Total Creatine Kinase CK-MB (CK-2) Rel Index Troponin T C-Reactive Protein Total Protein Albumin LDL Cholesterol Direct Urine WBC (Auto) 04/20/22 04/20/22 04/21/22 05:36 11:40 04:05 WBC RBC Hgb Hct MCV Plt Count Lymph % (Auto) Moore % (Auto) Lymph # (Auto) Moore # (Auto) Seg Neutrophils % Seg Neuts % (Manual) Lymphocytes % (Manual) Seg Neutrophils # Seg Neutrophils # Man Lymphocytes # (Manual) PT INR ABG pH ABG pO2 ABG HCO3 ABG O2 Saturation ABG Base Excess ABG Hemoglobin Oxyhemoglobin Sodium Potassium Chloride 93.4 L Carbon Dioxide 40 H BUN 25 H Creatinine < 0.2 L Glucose 122 H POC Glucose 125 H 128 H Calcium Phosphorus Magnesium Total Creatine Kinase CK-MB (CK-2) Rel Index Troponin T C-Reactive Protein Total Protein Albumin LDL Cholesterol Direct Urine WBC (Auto) Allied health notes reviewed: RT
--- NOTE | 2022-04-21 10:02 | XRay Report ---
CHEST 1 VIEW 04/21/2022 8:56 AM INDICATION / CLINICAL INFORMATION: hypoxia. COMPARISON: 04/19/2022 FINDINGS: SUPPORT DEVICES: Stable positioning of the tracheostomy HEART / MEDIASTINUM: No significant abnormality. LUNGS / PLEURA: Bibasilar opacities are identified most consistent with atelectatic changes. Opacity at the right lung base has increased. Opacity at the left lung base has decreased since the previous exam. No convincing large pleural effusion. No pneumothorax. ADDITIONAL FINDINGS: No significant additional findings. IMPRESSION: 1. Bibasilar opacities as described above. Increased at the right lung base and decreased at the left lung base. This has the appearance of atelectatic changes or infiltrates. Signer Name: Cuauhtemoc Mcintyre Jr, MD Signed: 04/21/2022 9:58 AM Workstation Name: [id number]
[2022-04-21] MEDS: POLYETHYLENE GLYCOL 3350 17 GM POWDER PO SCH (10:03)
[2022-04-21] MEDS: SENNOSIDES ORAL LIQD 8.8 MG/5 ML ORAL LIQD PO SCH ×2 (10:03→21:13)
[2022-04-21] MEDS: DOCUSATE SODIUM 100 MG/10 ML ORAL LIQD PO SCH ×2 (10:29→21:13)
[2022-04-21] MEDS: FAMOTIDINE 20 MG TAB FEEDTUBE SCH ×2 (10:29→21:10)
--- NOTE | 2022-04-21 10:39 | Progress Note ---
Assessment and Plan - Patient Problems (1) Respiratory failure Current Visit: Yes Status: Acute Plan to address problem: Patient presented with acute respiratory failure, with chest x-ray showing total whiteout of the right lung, due to acute pneumonia, large right pleural effusion and collapse of the right lung. Continue supportive management, antibiotics. (2) Acute coronary syndrome Current Visit: Yes Status: Acute Plan to address problem: The patient's interval ECGs while in the ICU showed dynamic changes of anterior wall ischemia or infarction. Patient has severe comorbidities including progressive total paralysis of ALS, and intercurrent respiratory failure with large right pleural effusion and total collapse of the right lung. Currently assessed as a poor candidate for aggressive cardiac management due to the multiple severe acute and chronic comorbidities. He has been placed on conservative, empiric coronary artery disease medical therapy. A trach PEG procedure has been completed, discharge planning for [facility] facility placement is in progress. Subjective Date of service: 04/21/22 Principal diagnosis: Ac and ch hypercapnic and hypoxemic Resp Failure; ALS; HCAP; Sepsis; NSTEMI Interval history: No new cardiac complaints, no new cardiac events reported. Patient is awake, on the vent via tracheostomy. Objective Vital Signs Temp Pulse Pulse Pulse Pulse Resp Resp 04/21/22 09:00 96 H 04/21/22 08:00 98.2 F 89 89 14 04/21/22 07:56 04/21/22 07:43 97 H 04/21/22 07:36 104 H 04/21/22 07:00 89 04/21/22 06:00 94 H 04/21/22 05:00 99 H 91 H 04/21/22 04:00 90 04/21/22 03:46 99.7 F H 04/21/22 03:00 90 04/21/22 02:00 73 04/21/22 01:00 82 98 H 04/21/22 00:24 86 04/21/22 00:00 93 H 101 H 101 H 14 04/20/22 23:17 99.6 F 100 H 04/20/22 23:00 97 H 04/20/22 22:00 89 04/20/22 21:00 112 H 96 H 04/20/22 20:00 97.9 F 107 H 04/20/22 19:00 116 H 04/20/22 18:00 104 H 14 04/20/22 17:25 04/20/22 17:12 111 H 04/20/22 17:00 110 H 113 H 14 04/20/22 16:00 99.2 F 108 H 15 04/20/22 15:32 04/20/22 15:24 107 H 109 H 14 04/20/22 15:15 109 H 04/20/22 15:00 106 H 14 04/20/22 14:00 100 H 14 04/20/22 13:00 101 H 97 H 14 04/20/22 12:16 115 H 04/20/22 12:00 114 H 16 04/20/22 11:47 112 H 04/20/22 11:46 98.1 F 04/20/22 11:15 104 H 04/20/22 11:00 113 H 14 Resp BP Pulse Ox Pulse Ox 04/21/22 09:00 121/72 95 04/21/22 08:00 111/68 96 04/21/22 07:56 97 04/21/22 07:43 105/72 97 04/21/22 07:36 14 04/21/22 07:00 115/70 97 04/21/22 06:00 125/74 97 04/21/22 05:00 103/62 96 04/21/22 04:00 94/61 98 04/21/22 03:46 04/21/22 03:00 97/58 94 04/21/22 02:00 116/60 91 04/21/22 01:00 96/55 95 04/21/22 00:24 102/56 04/21/22 00:00 14 112/67 98 98 04/20/22 23:17 107/60 96 04/20/22 23:00 107/60 96 04/20/22 22:00 97/56 94 04/20/22 21:00 108/66 92 04/20/22 20:00 118/68 94 04/20/22 19:00 117/68 91 04/20/22 18:00 106/59 95 04/20/22 17:25 93 04/20/22 17:12 100/54 04/20/22 17:00 100/54 94 04/20/22 16:00 112/60 89 04/20/22 15:32 95 04/20/22 15:24 20 04/20/22 15:15 118/69 95 04/20/22 15:00 118/69 95 04/20/22 14:00 120/71 93 04/20/22 13:00 119/76 89 04/20/22 12:16 131/81 04/20/22 12:00 133/81 87 04/20/22 11:47 04/20/22 11:46 04/20/22 11:15 100/58 96 04/20/22 11:00 117/73 93 - Physical Examination General: Other (Awake, on the vent via a tracheostomy) HEENT: Positive: PERRL, Normocephaly, Other (ET-tube in place) Neck: Positive: neck supple, trachea midline (intubated). Negative: JVD/HJR Cardiac: Positive: Reg Rate and Rhythm Lungs: Positive: Decreased Breath Sounds Neuro: Positive: Other (Awake, on the vent via tracheostomy) Abdomen: Positive: Soft Skin: Positive: Clear Extremities: Present: Other (TR.EDEMA). Absent: edema (NO) - Labs and Meds Comprehensive Metabolic Panel 04/21/22 Range/Units 04:05 Sodium 137 (137-145) mmol/L Potassium 4.5 (3.6-5.0) mmol/L Chloride 93.4 L (98-107) mmol/L Carbon Dioxide 40 H (22-30) mmol/L BUN 25 H (9-20) mg/dL Creatinine < 0.2 L (0.8-1.3) mg/dL Glucose 122 H (75-100) mg/dL Calcium 8.4 (8.4-10.2) mg/dL - Allied health notes Allied health notes reviewed: RT
[2022-04-21 11:27] LABS: Hematocrit 26.9 % (35.5-45.6); Hemoglobin 8.6 gm/dl (11.8-15.2); Mean Corpuscular HGB Conc 32 % (32-34); Mean Corpuscular Volume 95 fl (84-94); Platelet Count 353 K/mm3 (140-440); Red Blood Count 2.83 M/mm3 (3.65-5.03); Red Cell Distribution Width 13.8 % (13.2-15.2)
--- NOTE | 2022-04-21 13:31 | Ultrasound Report ---
ULTRASOUND CHEST HISTORY: Pleural effusion TECHNIQUE: Grayscale ultrasound FINDINGS: Both sides of the chest were scanned for pleural effusions prior to thoracentesis. The imag es demonstrate only trace to small pleural effusions bilaterally. Ultrasound-guided thoracentesis was not performed. IMPRESSION: Trace to small bilateral pleural effusions. No collection large enough for ultrasound-rivka ded thoracentesis. Signer Name: Cuauhtemoc Mcintyre Jr, MD Signed: 04/21/2022 1:27 PM Workstation Name: [id number]
--- NOTE | 2022-04-21 13:46 | Progress Note ---
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, recently hospitalized at [facility] admitted for acute hypoxemic respiratory failure 2/2 pneumonia Neuro: h/o ALS -s/p precedex, fentanyl gtt -Reorientation as needed -Maintain sleep-wake cycle -As needed analgesia -CT head with no acute intracranial process -Per family patient is nonverbal at baseline but responsive -Seroquel Cardiac: Suspect ischemic coronary artery disease, h/o cardiomyopathy -Cardiology consulted, appreciate recommendations -continue conservative management -Blood pressure monitoring per protocol -s/p Vasopressor support with Levophed -Echocardiogram shows ejection fraction of 40 to 45%, mild global hypokinesis of left ventricle -Nitro patch, BB Respiratory: Acute hypoxic respiratory failure -CCM consulted, appreciate recommendations -Intubated on 04/02 with a 7.50 ETT attempt at the lips -s/p trach on 04/14 and s/p bronch on 04/15 -A.m. vent settings: Assist-control/ PRVC TV 400, rate 14, Peep 8, FiO2 60% -See RT notes for titration -CPT and mucomyst -VAP bundle -SPO2 monitoring GI: Moderate protein calorie malnutrition, constipation -24 hours +1089 mL -PPI -Peg 04/14 -NTR consulted for tube feedings -BR: Senokot/colace, MiraLAX : NAD -Strict intake and output -Renally dose medications -Avoid nephrotoxic medications -Daily weights -trend BMP ID: Sepsis, Acute Bronchopneumonia, HAP (Pseudomonas and Enterobacter tracheal aspirate), blood culture with bacillus species -Infectious disease consulted, appreciate recommendation -Per infectious disease patient was recently admitted to [facility] but discharged home with home hospice and not giving antibiotics -Tracheal aspirate with Pseudomonas aeruginosa, Enterobacter aerogenes -04/02 blood culture with bacillus species, 04/05 blood culture NGTD -CRP 31.6, procalcitonin 0.08 -MRSA (-) -s/p cefepime for 14 days -Monitor WBC and temperature curve Endo: NAD -Avoid hypoglycemia -SSI -Accu-Cheks q 6 Heme: Leukocytosis -Heparin subq -Trend CBC -Transfuse hemoglobin less than 7 -SCDs to BLE while in bed Advance Care Planning - Disease education, care plan, diagnoses, and prognosis were discussed patient's , Carly Lopez, and patient daughter, Kaylee Warren, who translated for #[phone]. They reported that patient was following at [place] for his ALS and during recent hospitalization at [facility] they were told nothing else can be offered to patient at this time and patient was discharge home with home hospice and PO morphine. First hospice visit was on , 04/01 however, patient became unresponsive 04/02 and they brought in to the hospital. - Goal of care and code status were also addressed at that time. Family wants to wait for a couple days to see how patient respond to current treatment before making a decision. All questions and concerns were addressed at this time. Patient family acknowledged understanding and agreement with care plan. -Patient remains a FULL CODE status. -04/05: Discussion at bedside with interpreting service with Dr. Valdivia and family state they would discuss next steps amongst themselves and let healthcare team know of decisions -04/06: extensive discussion with family ( and son) with Dr. Grayson regarding goals of care -04/08: Extensive discussion with with the use of space operations line regarding goals of care; no decision made. Possible consult to surgery for trach/PEG ear ly next week. -04/09: Discussion with and her sister with Dr. Grayson and then with Dr. Pineda-> Consulted surgery for trach/peg -LTACH placement pending The high probability of a clinically significant, sudden or life threatening deterioration of the [multiple] system(s) required my full and direct attention, intervention and personal management. The aggregate critical care time was [60] minutes. 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 Work-up in the emergency department revealed leukocytosis, elevated troponin and hyponatremia and CXR revealed moderate to large pleural effusion on the right. Patient was having agonal breathing in the emergency department and was intubated. Patient was admitted to the hospitalist service with consults to [facility], cardiology and infectious disease for further work-up. Hospital Course to Date: 04/03: Intubated and Sedated on versed gtt, RASS-5. CT head/brain noted with no acute intracranial abnormality. Plan to initiated precededx gtt and wean off versed for a RASS goal of 0 to -2. CT chect also reviewed, findings are most consistent with acute bronchopneumonia. Continue empiric IV Abx, vent adjustment per CCM. ID consulted. Continue to F/U on cultures. Titrate pressor for MAP above 65. Medical records requested from [facility]. 04/04: Remains stable on the vent, easily arousable on precedex gtt, not following commands. Plan for SAT/SBT today. PRN analgesia for CPOT greater than 3. Fevers improved, cultures and procal pending. Continue current IV abx, ID also consulted. Remains on low dose pressors, titrate pressors for a MAP above 65. 04/05: Long discussion with family with use of translation phone with [facility] regarding goals of care. Family to have meeting amongst themselves and informed care team of decisions. Fentanyl drip added for respiratory distress. Remains on Precedex drip. Antibiotics per ID. Given 2L NS bolus with levophed gtt 04/06: Family discussion with Dr. Grayson for goals of care. CXR shows possible mucus plug, continue CPT as FiO2 is being able to be weaned. Potassium repleted. Weaning fentnyl gtt. 04/07: Ultrasound guided thoracentesis today scheduled, inadequate amount of pleural effusion on so not completed. Patient was started on Levophed overnight which was weaned off this morning however had to be started twice a day. Remains on fentanyl and Precedex. Cardiology discontinued BB and ACEi in setting of hypotension. 04/08: COVID-19 PCR negative. Routine EEG ordered by cardiology which showed ST changes, cardiology aware. They will continue conservative treatment. Repeat troponins 0.030 which are less than admit of 0.048. Dr. Grayson had a long discussion with with the use of space operations today at bedside and has not made a decision regarding goals of care. Possible consult to surgery for trach/PEG early next week. Continues to require Precedex and fentanyl drip for sedation. Carvedilol/lisinopril discontinued as patient is continuously on Levophed. 04/09: No acute events reported overnight, remains on fentanyl, Precedex and Levophed drips. Dr. Grayson and Dr. Pineda updated family at bedside extensively today. Consulted surgery for trach/PEG. COVID-19 PCR negative. 04/10: Patient noted to have desaturation episodes, FiO2 increased slightly to 35%. Will add Mucomyst. Remains on fentanyl and Precedex. Off of Levophed. Surgery consulted for trach/PEG. 04/11: FiO2 increased over night likely related to hypoxia, continues on fent gtt, weaning precedex gtt as he is also on Seroquel. Will d/w CCM re scheduled or prn oxycodone 04/12: Periods of hypoxia and tachycardia this am. Symptoms improved post deep suction and tracheal lavage, Repeat CXR noted with no significant change. Continue CPT and mucomyst. Plan for possible trach/PEG tomorrow by general surgery. 04/13: Remains stable on the vent. Patient is wake and tracking but does not follow simple commands. No report of hypoxia from overnight, continue CPT and mucomyst. Plan for track and PEG today by General Surgery. Plan for LTAC placement post procedure, case management to arrange. 04/14: VIRGILIO overnight, Trach and PEG postponed for today by general surgery. Plan for LTAC placement post procedure, case management to arrange. 04/15: S/p Trach and PEG. Up to 80% FiO2 this am, this am CXR noted suggesting possible mucus plug. D/W [facility] plan for bronch today. Continue CPT and mucomyst. Plan of care thoroughly discussed with patient's and son (who translated for ) at the bedside. Per , sewage disposal worker had already discussed the risks and benefits of the procedure yesterday. She verbalized understanding and agreed with procedure and current care plan, consent signed. Okay to use PEG-tube for meds this am, resume TF once okay by general Surgery. Case management to arrange LTAC placement. 04/16: s/p Bronchocopy by [facility]. FiO2 down to 60%, angela 10 this am. This am CXR with moderate improvement. Continue CPT and mucomyst, wean Fio2 as tolerated for SPO2 above 92%. Patient is tolerating TF, advance to goal as ordered. Possible LTAC placement, case management to arrange. 04/17: VIRGILIO overnight. remains stable on the vent, recent CXR and this am ABG noted. Continue CPT and mucomyst, wean Fio2 as tolerated. 04/18: Remains stable on the vent, Fio2 down to 55% and peep of 8 this am. Continue to wean as tolerated, CPT, and mucomyst. Dsiposition- LTAC placement, case management to arrange. 04/19: No acute events overnight. Continue current management. 04/20: No acute events overnight, continue current management 04/21: Patient had chest ultrasound which showed trace pleural effusions, chest x-ray improved after the addition of Mucomyst yesterday. FiO2 55-65%. No acute events overngiht. more interactive today. Hospitalist Physical - Constitutional Vitals: Temp Pulse Resp BP Pulse Ox 99.8 F H 97 H 17 137/62 95 04/21/22 12:00 04/21/22 12:52 04/21/22 12:00 04/21/22 12:52 04/21/22 12:00 General appearance: Present: no acute distress, cachectic, other (trach/) - EENT Eyes: Present: PERRL, EOM intact - Neck Neck: Present: normal ROM - Respiratory Respiratory effort: normal Respiratory: bilateral: diminished - Cardiovascular Rhythm: regular Heart Sounds: Present: S1 & S2. Absent: systolic murmur, diastolic murmur - Extremities Extremities: no ischemia, pulses intact, pulses symmetrical, normal temperature, normal color Peripheral Pulses: within normal limits - Abdominal General gastrointestinal: soft, non-tender, non-distended, normal bowel sounds - Integumentary Integumentary: Present: warm, dry - Psychiatric Psychiatric: cooperative - Neurologic Neurologic: CNII-XII intact, other (follows commands) - Allied Health Allied health notes reviewed: nursing, RT, social work HEART Score - HEART Score Troponin: Troponin T 0.031 ng/mL (0.00-0.029) H 04/08/22 17:47 Results - Labs CBC & Chem 7: 04/21/22 10:31 04/21/22 04:05 Labs: Laboratory Last Values WBC 12.6 K/mm3 (4.5-11.0) H 04/21/22 10:31 RBC 2.83 M/mm3 (3.65-5.03) L 04/21/22 10:31 Hgb 8.6 gm/dl (11.8-15.2) L 04/21/22 10:31 Hct 26.9 % (35.5-45.6) L 04/21/22 10:31 MCV 95 fl (84-94) H 04/21/22 10:31 MCH 31 pg (28-32) 04/21/22 10:31 MCHC 32 % (32-34) 04/21/22 10:31 RDW 13.8 % (13.2-15.2) 04/21/22 10:31 Plt Count 353 K/mm3 (140-440) 04/21/22 10:31 Lymph % (Auto) 4.3 % (13.4-35.0) L 04/07/22 03:51 [place] % (Auto) 8.8 % (0.0-7.3) H 04/07/22 03:51 Eos % (Auto) 0.1 % (0.0-4.3) 04/07/22 03:51 Baso % (Auto) 0.2 % (0.0-1.8) 04/07/22 03:51 Lymph # (Auto) 0.6 K/mm3 (1.2-5.4) L 04/07/22 03:51 [place] # (Auto) 1.3 K/mm3 (0.0-0.8) H 04/07/22 03:51 Eos # (Auto) 0.0 K/mm3 (0.0-0.4) 04/07/22 03:51 Baso # (Auto) 0.0 K/mm3 (0.0-0.1) 04/07/22 03:51 Add Manual Diff Complete 04/02/22 19:39 Total Counted 100 04/02/22 19:39 Seg Neutrophils % 86.6 % (40.0-70.0) H 04/07/22 03:51 Seg Neuts % (Manual) 94.0 % (40.0-70.0) H 04/02/22 19:39 Band Neutrophils % 0 % 04/02/22 19:39 Lymphocytes % (Manual) 1.0 % (13.4-35.0) L 04/02/22 19:39 Reactive Lymphs % (Man) 0 % 04/02/22 19:39 Monocytes % (Manual) 5.0 % (0.0-7.3) 04/02/22 19:39 Eosinophils % (Manual) 0 % (0.0-4.3) 04/02/22 19:39 Basophils % (Manual) 0 % (0.0-1.8) 04/02/22 19:39 Metamyelocytes % 0 % 04/02/22 19:39 Myelocytes % 0 % 04/02/22 19:39 Promyelocytes % 0 % 04/02/22 19:39 Blast Cells % 0 % 04/02/22 19:39 Nucleated RBC % Not Reportable 04/02/22 19:39 Seg Neutrophils # 12.7 K/mm3 (1.8-7.7) H 04/07/22 03:51 Seg Neutrophils # Man 13.4 K/mm3 (1.8-7.7) H 04/02/22 19:39 Band Neutrophils # 0.0 K/mm3 04/02/22 19:39 Lymphocytes # (Manual) 0.1 K/mm3 (1.2-5.4) L 04/02/22 19:39 Abs React Lymphs (Man) 0.0 K/mm3 04/02/22 19:39 Monocytes # (Manual) 0.7 K/mm3 (0.0-0.8) 04/02/22 19:39 Eosinophils # (Manual) 0.0 K/mm3 (0.0-0.4) 04/02/22 19:39 Basophils # (Manual) 0.0 K/mm3 (0.0-0.1) 04/02/22 19:39 Metamyelocytes # 0.0 K/mm3 04/02/22 19:39 Myelocytes # 0.0 K/mm3 04/02/22 19:39 Promyelocytes # 0.0 K/mm3 04/02/22 19:39 Blast Cells # 0.0 K/mm3 04/02/22 19:39 WBC Morphology Not Reportable 04/02/22 19:39 Hypersegmented Neuts Not Reportable 04/02/22 19:39 Hyposegmented Neuts Not Reportable 04/02/22 19:39 Hypogranular Neuts Not Reportable 04/02/22 19:39 Smudge Cells Not Reportable 04/02/22 19:39 Toxic Granulation Not Reportable 04/02/22 19:39 Toxic Vacuolation Not Reportable 04/02/22 19:39 Dohle Bodies Not Reportable 04/02/22 19:39 Pelger-Huet Anomaly Not Reportable 04/02/22 19:39 Terry Rods Not Reportable 04/02/22 19:39 Platelet Estimate Consistent w auto 04/02/22 19:39 Clumped Platelets Not Reportable 04/02/22 19:39 Plt Clumps, EDTA Not Reportable 04/02/22 19:39 Large Platelets Not Reportable 04/02/22 19:39 Giant Platelets Not Reportable 04/02/22 19:39 Platelet Satelliting Not Reportable 04/02/22 19:39 Plt Morphology Comment Not Reportable 04/02/22 19:39 RBC Morphology Not Reportable 04/02/22 19:39 Dimorphic RBCs Not Reportable 04/02/22 19:39 Polychromasia Not Reportable 04/02/22 19:39 Hypochromasia Not Reportable 04/02/22 19:39 Poikilocytosis Not Reportable 04/02/22 19:39 Anisocytosis 1+ 04/02/22 19:39 Microcytosis Not Reportable 04/02/22 19:39 Macrocytosis Not Reportable 04/02/22 19:39 Spherocytes Not Reportable 04/02/22 19:39 Pappenheimer Bodies Not Reportable 04/02/22 19:39 Sickle Cells Not Reportable 04/02/22 19:39 Target Cells Not Reportable 04/02/22 19:39 Tear Drop Cells Not Reportable 04/02/22 19:39 Ovalocytes Not Reportable 04/02/22 19:39 Helmet Cells Not Reportable 04/02/22 19:39 [place]ric[place] Bodies Not Reportable 04/02/22 19:39 [place] Rings Not Reportable 04/02/22 19:39 Cheikh Cells Not Reportable 04/02/22 19:39 Bite Cells Not Reportable 04/02/22 19:39 Crenated Cell Not Reportable 04/02/22 19:39 Elliptocytes Not Reportable 04/02/22 19:39 Acanthocytes (Spur) Not Reportable 04/02/22 19:39 Rouleaux Not Reportable 04/02/22 19:39 Hemoglobin C Crystals Not Reportable 04/02/22 19:39 Schistocytes Not Reportable 04/02/22 19:39 Malaria parasites Not Reportable 04/02/22 19:39 [place] Bodies Not Reportable 04/02/22 19:39 Hem Pathologist Commnt No 04/02/22 19:39 PT 13.6 Sec. (12.2-14.9) 04/13/22 04:30 INR 0.94 (0.87-1.13) 04/13/22 04:30 APTT 35.7 Sec. (24.2-36.6) 04/07/22 03:51 ABG pH 7.419 pH Units (7.350-7.450) 04/19/22 08:50 ABG pCO2 74.5 mm Hg 04/19/22 08:50 ABG pO2 56.0 mm Hg (80.0-90.0) L 04/19/22 08:50 ABG HCO3 47.1 mmol/L (20.0-26.0) H 04/19/22 08:50 ABG O2 Saturation 93.3 % (95.0-99.0) L 04/19/22 08:50 ABG O2 Content 10.3 (0.0-44) 04/19/22 08:50 ABG Base Excess 20.1 mmol/L (-2.0-3.0) H 04/19/22 08:50 ABG Hemoglobin 8.0 gm/dl (14.0-18.0) L 04/19/22 08:50 ABG Carboxyhemoglobin 1.3 % (0.0-5.0) 04/19/22 08:50 ABG Methemoglobin 0.3 % (0.0-1.5) 04/19/22 08:50 Oxyhemoglobin 91.8 % (95.0-99.0) L 04/19/22 08:50 FiO2 55 % 04/19/22 08:50 Sodium 137 mmol/L (137-145) 04/21/22 04:05 Potassium 4.5 mmol/L (3.6-5.0) 04/21/22 04:05 Chloride 93.4 mmol/L (98-107) L 04/21/22 04:05 Carbon Dioxide 40 mmol/L (22-30) H 04/21/22 04:05 Anion Gap 8 mmol/L 04/21/22 04:05 BUN 25 mg/dL (9-20) H 04/21/22 04:05 Creatinine < 0.2 mg/dL (0.8-1.3) L 04/21/22 04:05 Estimated GFR > 60 ml/min 04/21/22 04:05 BUN/Creatinine Ratio 125 % 04/21/22 04:05 Glucose 122 mg/dL (75-100) H 04/21/22 04:05 POC Glucose 128 mg/dL (70-105) H 04/20/22 11:40 Lactic Acid 1.90 mmol/L (0.7-2.0) 04/02/22 19:39 Calcium 8.4 mg/dL (8.4-10.2) 04/21/22 04:05 Phosphorus 2.50 mg/dL (2.5-4.5) 04/17/22 04:36 Magnesium 2.10 mg/dL (1.7-2.3) 04/17/22 04:36 Total Bilirubin 0.80 mg/dL (0.1-1.2) 04/02/22 19:39 AST 15 units/L (5-40) 04/02/22 19:39 ALT 9 units/L (7-56) 04/02/22 19:39 Alkaline Phosphatase 43 units/L (35-129) 04/02/22 19:39 Total Creatine Kinase 46 units/L (55-170) L 04/08/22 17:47 CK-MB (CK-2) 2.6 ng/mL (0.0-4.0) 04/08/22 17:47 CK-MB (CK-2) Rel Index 5.6 (0-4) H 04/08/22 17:47 Troponin T 0.031 ng/mL (0.00-0.029) H 04/08/22 17:47 C-Reactive Protein 31.60 mg/dL (0.00-1.30) H 04/04/22 04:18 Total Protein 4.6 g/dL (6.3-8.2) L 04/02/22 19:39 Albumin 2.7 g/dL (3.9-5) L 04/02/22 19:39 Albumin/Globulin Ratio 1.4 % 04/02/22 19:39 Triglycerides 80 mg/dL (2-149) 04/02/22 19:39 Cholesterol 94 mg/dL (50-199) 04/02/22 19:39 LDL Cholesterol Direct 27 mg/dL (50-130) L 04/02/22 19:39 HDL Cholesterol 47 mg/dL (40-59) 04/02/22 19:39 Cholesterol/HDL Ratio 2.00 % 04/02/22 19:39 Procalcitonin 0.08 ng/mL (<0.15) 04/04/22 04:18 Urine Color Aracely (Yellow) 04/05/22 17:45 Urine Turbidity Cloudy (Clear) 04/05/22 17:45 Urine pH 5.0 (5.0-7.0) 04/05/22 17:45 Ur Specific [place] 1.021 (1.003-1.030) 04/05/22 17:45 Urine Protein 30 mg/dl mg/dL (Negative) 04/05/22 17:45 Urine Glucose (UA) Neg mg/dL (Negative) 04/05/22 17:45 Urine Ketones Tr mg/dL (Negative) 04/05/22 17:45 Urine Blood Sm (Negative) 04/05/22 17:45 Urine Nitrite Neg (Negative) 04/05/22 17:45 Urine Bilirubin Neg (Negative) 04/05/22 17:45 Urine Urobilinogen < 2.0 mg/dL (<2.0) 04/05/22 17:45 Ur Leukocyte Esterase Tr (Negative) 04/05/22 17:45 Urine WBC (Auto) 8.0 /HPF (0.0-6.0) H 04/05/22 17:45 Urine RBC (Auto) 3.0 /HPF (0.0-6.0) 04/05/22 17:45 U Epithel Cells (Auto) 2.0 /HPF (0-13.0) 04/05/22 17:45 Urine Bacteria (Auto) 1+ /HPF (Negative) 04/02/22 Unknown Hyaline Casts 1 /LPF 04/05/22 17:45 Urine Mucus 3+ /HPF 04/05/22 17:45 Nasal Screen MRSA (PCR) Negative (Negative) 04/05/22 12:37 Vancomycin Trough 6.0 ug/mL (5.0-20.0) 04/05/22 18:53 Coronavirus (PCR) Negative (Negative) 04/07/22 14:52 Perez/IV: Voiding Method Condom Catheter Active Medications - Current Medications Current Medications: Generic Name Dose Route Start Last Admin Trade Name Freq PRN Reason Stop Dose Admin Acetaminophen 650 mg 04/02/22 23:53 04/16/22 12:16 Acetaminophen 325 Mg Tab PO 650 mg Q6H PRN Administration Pain MILD(1-3)/Fever >100.5/FAITH Acetylcysteine 200 mg 04/21/22 16:00 Acetylcysteine 20% 200 Mg/1 Ml *For Inhalation Use* INHALATION Q8HRT SEGUNDO Albuterol 2.5 mg 04/06/22 16:00 04/21/22 07:20 Albuterol 2.5 Mg/3 Ml Nebu IH 2.5 mg Q8HRT SEGUNDO Administration Bisacodyl 10 mg 04/07/22 09:44 04/12/22 10:06 Bisacodyl 10 Mg Rect Supp SD 10 mg QDAY PRN Administration Constipation Dextrose 50 ml 04/06/22 17:54 Dextrose 50% In Water (25gm) 50 Ml Syringe IV Q30MIN PRN Hypoglycemia Protocol Docusate Sodium 100 mg 04/03/22 15:00 04/21/22 10:29 Docusate Sodium 100 Mg/10 Ml Oral Liqd PO 100 mg BID SEGUNDO Administration Famotidine 20 mg 04/06/22 10:00 04/21/22 10:29 Famotidine 20 Mg Tab FEEDTUBE 20 mg BID SEGUNDO Administration Fentanyl 50 mcg 04/04/22 15:56 04/16/22 13:31 Fentanyl 100 Mcg/2 Ml Inj IV 50 mcg Q2HR PRN Administration For CPOT of greater than 3 Heparin Sodium (Porcine) 5,000 unit 04/03/22 06:00 04/21/22 05:54 Heparin 5,000 Unit/1 Ml Vial SUB-Q 5,000 unit Q8HR SEGUNDO Administration Insulin Human Regular 0 units 04/06/22 18:00 04/21/22 12:47 Insulin Regular, Human 100 Units/1 Ml SUB-Q Not Given Q6H SEGUNDO Protocol Magnesium Hydroxide 30 ml 04/02/22 23:53 Magnesium Hydroxide (Mom) Oral Liqd Udc PO Q4H PRN Constipation Metoprolol Tartrate 25 mg 04/16/22 18:00 04/21/22 12:52 Metoprolol Tartrate 25 Mg Tab FEEDTUBE 25 mg Q6HR SEGUNDO Administration Ondansetron HCl 4 mg 04/02/22 23:53 Ondansetron 4 Mg/2 Ml Inj IV Q8H PRN Nausea And Vomiting Polyethylene Glycol 17 gm 04/08/22 10:00 04/21/22 10:03 Polyethylene Glycol 3350 17 Gm Powder PO Not Given QDAY SEGUNDO Quetiapine Fumarate 100 mg 04/21/22 22:00 Quetiapine 100 Mg Tab PO QHS SEGUNDO Senna 17.6 mg 04/03/22 22:00 04/21/22 10:03 Sennosides Oral Liqd 8.8 Mg/5 Ml Oral Liqd PO Not Given Q12HR SEGUNDO Sodium Chloride 10 ml 04/03/22 10:00 04/21/22 10:29 Sodium Chloride 0.9% 10 Ml Flush Syringe IV 10 ml BID SEGUNDO Administration Sodium Chloride 10 ml 04/02/22 23:53 Sodium Chloride 0.9% 10 Ml Flush Syringe IV PRN PRN LINE FLUSH Nutrition/Malnutrition Assess - Dietary Evaluation Nutrition/Malnutrition Findings: Nutrition Notes Start: 04/04/22 13:13 Freq: Status: Active Protocol: Document 04/20/22 11:36 COLLEEN (Rec: 04/20/22 12:00 COLLEEN [id number]) Nutrition Notes Initial or Follow up Reassessment Current Diagnosis Coronary Artery Disease, Respiratory Failure, Malnutrition Other Pertinent Diagnosis HCAP, HFpEF, ALS, Pleural Effusion, R-Lung Collapse, Hypotension, ... Current Diet TF-Vital AF 1.2 Inderjit @ 50 ml/hr (since D 04/15). Labs/Tests 04/19: Cl 96.2, CO2 40, BUN 24 , Crea <0.2, Glu 125, Ca 8.3. Pertinent Medications 04/20: Nutritionally unremarkable. Height 5 ft 4.8 in Weight 46.8 kg [place] Body Weight (kg) 61.27 BMI 17.2 Weight change and time frame No body weight change reported in 2 weeks. Weight Status Underweight Subjective/Other Information RD consult for routine F/U on TF tolerance/continuation. TF continues as prescribed, and well tolerated, according to RN notes. RN note on 04/20/22 06:13: No acute changes throughout night . Trach intact to vent, with Fi02 @ 55%. Peg intact with patient tolerating tube feedings as ordered. Vitals stable. Currently 93/53, 93, 14, 95%. Pt continues on Mechanical ventilation, O2 saturation @ 96%, according to Physical Assessment Histroy notes. Pt presents constipation, according to Physical Assessment Histroy notes. Tracheostomy and PEG tube placement on 04/15, well tolerated, according to Progress notes. LTAC placement still pending. Percent of energy/protein needs met: Prescribed TF-Vital AF 1.2 Inderjit @ 50 ml/hr provides for energy/protein needs (1,450 Kcal/91 g) during LOS, 98% Kcal; 100% AA. Burn Absent Trauma Absent GI Symptoms Constipation Difficulty In Swallowing,Chewing Food Allergy No Skin Integrity/Comment Sacral open wound. Current % PO Other Minimum of two criteria No #1 Nutrition Diagnosis Inadequate oral intake Diagnosis Progress(for reassessment Continues documentation) Is patient on ventilator? Yes Is Patient Ambulatory and/or Out of Bed No [facility] [phone] Calculation Used for Recommendations [facility] Additional Notes Protein: 1.2-2 g/Kg IBW; 73- 122 g/day. Fluids: 1 ml/Kcal, or as per MD. Nutrition Intervention Nutrition Support: Continue TF-Vital AF 1.2 Inderjit @ 50 ml/hr. Flush: 80 ml water Q 4 hr, or as per MD. Kcal 1,450 Protein (gm) 91 Carbohydrates (gm) 134 Fat (gm) 65 Fluid (mL) 980 Fiber (gm) 6 % RDI: 98% Kcal; 100% AA. Goal #1 Provide at least 75% of energy /protein needs through Enteral Feeding during LOS. Follow-Up By: 04/27/22 Additional Comments Continue monitoring TF tolerance and BM. <NORM GRAYSON - Last Filed: 04/28/22 14:38> Assessment and Plan Assessment and plan: I saw and evaluated the patient. Discussed with the nurse practitioner and agree with their findings and plan as documented in this note. Hospitalist Physical - Constitutional Vitals: Temp Pulse Resp BP Pulse Ox 99.1 F 109 H 15 111/66 100 04/28/22 11:43 04/28/22 13:00 04/28/22 13:00 04/28/22 13:00 04/28/22 13:00 HEART Score - HEART Score Troponin: Troponin T 0.031 ng/mL (0.00-0.029) H 04/08/22 17:47 Results - Labs CBC & Chem 7: 04/26/22 04:22 04/26/22 04:22 Labs: Laboratory Last Values WBC 10.0 K/mm3 (4.5-11.0) 04/26/22 04:22 RBC 2.88 M/mm3 (3.65-5.03) L 04/26/22 04:22 Hgb 8.9 gm/dl (11.8-15.2) L 04/26/22 04:22 Hct 26.8 % (35.5-45.6) L 04/26/22 04:22 MCV 93 fl (84-94) 04/26/22 04:22 MCH 31 pg (28-32) 04/26/22 04:22 MCHC 33 % (32-34) 04/26/22 04:22 RDW 13.8 % (13.2-15.2) 04/26/22 04:22 Plt Count 376 K/mm3 (140-440) 04/26/22 04:22 Lymph % (Auto) 4.3 % (13.4-35.0) L 04/07/22 03:51 [place] % (Auto) 8.8 % (0.0-7.3) H 04/07/22 03:51 Eos % (Auto) 0.1 % (0.0-4.3) 04/07/22 03:51 Baso % (Auto) 0.2 % (0.0-1.8) 04/07/22 03:51 Lymph # (Auto) 0.6 K/mm3 (1.2-5.4) L 04/07/22 03:51 [place] # (Auto) 1.3 K/mm3 (0.0-0.8) H 04/07/22 03:51 Eos # (Auto) 0.0 K/mm3 (0.0-0.4) 04/07/22 03:51 Baso # (Auto) 0.0 K/mm3 (0.0-0.1) 04/07/22 03:51 Add Manual Diff Complete 04/02/22 19:39 Total Counted 100 04/02/22 19:39 Seg Neutrophils % 86.6 % (40.0-70.0) H 04/07/22 03:51 Seg Neuts % (Manual) 94.0 % (40.0-70.0) H 04/02/22 19:39 Band Neutrophils % 0 % 04/02/22 19:39 Lymphocytes % (Manual) 1.0 % (13.4-35.0) L 04/02/22 19:39 Reactive Lymphs % (Man) 0 % 04/02/22 19:39 Monocytes % (Manual) 5.0 % (0.0-7.3) 04/02/22 19:39 Eosinophils % (Manual) 0 % (0.0-4.3) 04/02/22 19:39 Basophils % (Manual) 0 % (0.0-1.8) 04/02/22 19:39 Metamyelocytes % 0 % 04/02/22 19:39 Myelocytes % 0 % 04/02/22 19:39 Promyelocytes % 0 % 04/02/22 19:39 Blast Cells % 0 % 04/02/22 19:39 Nucleated RBC % Not Reportable 04/02/22 19:39 Seg Neutrophils # 12.7 K/mm3 (1.8-7.7) H 04/07/22 03:51 Seg Neutrophils # Man 13.4 K/mm3 (1.8-7.7) H 04/02/22 19:39 Band Neutrophils # 0.0 K/mm3 04/02/22 19:39 Lymphocytes # (Manual) 0.1 K/mm3 (1.2-5.4) L 04/02/22 19:39 Abs React Lymphs (Man) 0.0 K/mm3 04/02/22 19:39 Monocytes # (Manual) 0.7 K/mm3 (0.0-0.8) 04/02/22 19:39 Eosinophils # (Manual) 0.0 K/mm3 (0.0-0.4) 04/02/22 19:39 Basophils # (Manual) 0.0 K/mm3 (0.0-0.1) 04/02/22 19:39 Metamyelocytes # 0.0 K/mm3 04/02/22 19:39 Myelocytes # 0.0 K/mm3 04/02/22 19:39 Promyelocytes # 0.0 K/mm3 04/02/22 19:39 Blast Cells # 0.0 K/mm3 04/02/22 19:39 WBC Morphology Not Reportable 04/02/22 19:39 Hypersegmented Neuts Not Reportable 04/02/22 19:39 Hyposegmented Neuts Not Reportable 04/02/22 19:39 Hypogranular Neuts Not Reportable 04/02/22 19:39 Smudge Cells Not Reportable 04/02/22 19:39 Toxic Granulation Not Reportable 04/02/22 19:39 Toxic Vacuolation Not Reportable 04/02/22 19:39 Dohle Bodies Not Reportable 04/02/22 19:39 Pelger-Huet Anomaly Not Reportable 04/02/22 19:39 Terry Rods Not Reportable 04/02/22 19:39 Platelet Estimate Consistent w auto 04/02/22 19:39 Clumped Platelets Not Reportable 04/02/22 19:39 Plt Clumps, EDTA Not Reportable 04/02/22 19:39 Large Platelets Not Reportable 04/02/22 19:39 Giant Platelets Not Reportable 04/02/22 19:39 Platelet Satelliting Not Reportable 04/02/22 19:39 Plt Morphology Comment Not Reportable 04/02/22 19:39 RBC Morphology Not Reportable 04/02/22 19:39 Dimorphic RBCs Not Reportable 04/02/22 19:39 Polychromasia Not Reportable 04/02/22 19:39 Hypochromasia Not Reportable 04/02/22 19:39 Poikilocytosis Not Reportable 04/02/22 19:39 Anisocytosis 1+ 04/02/22 19:39 Microcytosis Not Reportable 04/02/22 19:39 Macrocytosis Not Reportable 04/02/22 19:39 Spherocytes Not Reportable 04/02/22 19:39 Pappenheimer Bodies Not Reportable 04/02/22 19:39 Sickle Cells Not Reportable 04/02/22 19:39 Target Cells Not Reportable 04/02/22 19:39 Tear Drop Cells Not Reportable 04/02/22 19:39 Ovalocytes Not Reportable 04/02/22 19:39 Helmet Cells Not Reportable 04/02/22 19:39 [place] Bodies Not Reportable 04/02/22 19:39 [place] Rings Not Reportable 04/02/22 19:39 [place] Cells Not Reportable 04/02/22 19:39 Bite Cells Not Reportable 04/02/22 19:39 Crenated Cell Not Reportable 04/02/22 19:39 Elliptocytes Not Reportable 04/02/22 19:39 Acanthocytes (Spur) Not Reportable 04/02/22 19:39 Rouleaux Not Reportable 04/02/22 19:39 Hemoglobin C Crystals Not Reportable 04/02/22 19:39 Schistocytes Not Reportable 04/02/22 19:39 Malaria parasites Not Reportable 04/02/22 19:39 [place] Bodies Not Reportable 04/02/22 19:39 Hem Pathologist Commnt No 04/02/22 19:39 PT 13.6 Sec. (12.2-14.9) 04/13/22 04:30 INR 0.94 (0.87-1.13) 04/13/22 04:30 APTT 35.7 Sec. (24.2-36.6) 04/07/22 03:51 ABG pH 7.457 pH Units (7.350-7.450) H 04/25/22 09:00 ABG pCO2 61.7 mm Hg 04/25/22 09:00 ABG pO2 66.7 mm Hg (80.0-90.0) L 04/25/22 09:00 ABG HCO3 42.6 mmol/L (20.0-26.0) H 04/25/22 09:00 ABG O2 Saturation 95.7 % (95.0-99.0) 04/25/22 09:00 ABG O2 Content 20.0 (0.0-44) 04/25/22 09:00 ABG Base Excess 15.3 mmol/L (-2.0-3.0) H 04/25/22 09:00 ABG Hemoglobin 8.8 gm/dl (14.0-18.0) L 04/25/22 09:00 ABG Carboxyhemoglobin 1.3 % (0.0-5.0) 04/25/22 09:00 ABG Methemoglobin 0.4 % (0.0-1.5) 04/25/22 09:00 Oxyhemoglobin 94.1 % (95.0-99.0) L 04/25/22 09:00 FiO2 35 % 04/25/22 09:00 Sodium 137 mmol/L (137-145) 04/26/22 04:22 Potassium 4.3 mmol/L (3.6-5.0) 04/26/22 04:22 Chloride 93.2 mmol/L (98-107) L 04/26/22 04:22 Carbon Dioxide 37 mmol/L (22-30) H 04/26/22 04:22 Anion Gap 11 mmol/L 04/26/22 04:22 BUN 16 mg/dL (9-20) 04/26/22 04:22 Creatinine < 0.2 mg/dL (0.8-1.3) L 04/26/22 04:22 Estimated GFR > 60 ml/min 04/26/22 04:22 BUN/Creatinine Ratio 80 % 04/26/22 04:22 Glucose 114 mg/dL (75-100) H 04/26/22 04:22 POC Glucose 128 mg/dL (70-105) H 04/20/22 11:40 Lactic Acid 1.90 mmol/L (0.7-2.0) 04/02/22 19:39 Calcium 8.5 mg/dL (8.4-10.2) 04/26/22 04:22 Phosphorus 3.60 mg/dL (2.5-4.5) 04/26/22 04:22 Magnesium 1.90 mg/dL (1.7-2.3) 04/26/22 04:22 Total Bilirubin 0.80 mg/dL (0.1-1.2) 04/02/22 19:39 AST 15 units/L (5-40) 04/02/22 19:39 ALT 9 units/L (7-56) 04/02/22 19:39 Alkaline Phosphatase 43 units/L (35-129) 04/02/22 19:39 Total Creatine Kinase 46 units/L (55-170) L 04/08/22 17:47 CK-MB (CK-2) 2.6 ng/mL (0.0-4.0) 04/08/22 17:47 CK-MB (CK-2) Rel Index 5.6 (0-4) H 04/08/22 17:47 Troponin T 0.031 ng/mL (0.00-0.029) H 04/08/22 17:47 C-Reactive Protein 31.60 mg/dL (0.00-1.30) H 04/04/22 04:18 Total Protein 4.6 g/dL (6.3-8.2) L 04/02/22 19:39 Albumin 2.7 g/dL (3.9-5) L 04/02/22 19:39 Albumin/Globulin Ratio 1.4 % 04/02/22 19:39 Triglycerides 80 mg/dL (2-149) 04/02/22 19:39 Cholesterol 94 mg/dL (50-199) 04/02/22 19:39 LDL Cholesterol Direct 27 mg/dL (50-130) L 04/02/22 19:39 HDL Cholesterol 47 mg/dL (40-59) 04/02/22 19:39 Cholesterol/HDL Ratio 2.00 % 04/02/22 19:39 Procalcitonin 0.08 ng/mL (<0.15) 04/04/22 04:18 Urine Color [place] (Yellow) 04/05/22 17:45 Urine Turbidity Cloudy (Clear) 04/05/22 17:45 Urine pH 5.0 (5.0-7.0) 04/05/22 17:45 Ur Specific [place] 1.021 (1.003-1.030) 04/05/22 17:45 Urine Protein 30 mg/dl mg/dL (Negative) 04/05/22 17:45 Urine Glucose (UA) Neg mg/dL (Negative) 04/05/22 17:45 Urine Ketones Tr mg/dL (Negative) 04/05/22 17:45 Urine Blood Sm (Negative) 04/05/22 17:45 Urine Nitrite Neg (Negative) 04/05/22 17:45 Urine Bilirubin Neg (Negative) 04/05/22 17:45 Urine Urobilinogen < 2.0 mg/dL (<2.0) 04/05/22 17:45 Ur Leukocyte Esterase Tr (Negative) 04/05/22 17:45 Urine WBC (Auto) 8.0 /HPF (0.0-6.0) H 04/05/22 17:45 Urine RBC (Auto) 3.0 /HPF (0.0-6.0) 04/05/22 17:45 U Epithel Cells (Auto) 2.0 /HPF (0-13.0) 04/05/22 17:45 Urine Bacteria (Auto) 1+ /HPF (Negative) 04/02/22 Unknown Hyaline Casts 1 /LPF 04/05/22 17:45 Urine Mucus 3+ /HPF 04/05/22 17:45 Nasal Screen MRSA (PCR) Negative (Negative) 04/05/22 12:37 Vancomycin Trough 6.0 ug/mL (5.0-20.0) 04/05/22 18:53 Coronavirus (PCR) Negative (Negative) 04/07/22 14:52 Perez/IV: Voiding Method Condom Catheter Active Medications - Current Medications Current Medications: Generic Name Dose Route Start Last Admin Trade Name Freq PRN Reason Stop Dose Admin Acetaminophen 650 mg 04/02/22 23:53 04/21/22 16:23 Acetaminophen 325 Mg Tab PO 650 mg Q6H PRN Administration Pain MILD(1-3)/Fever >100.5/FAITH Acetylcysteine 200 mg 04/21/22 16:00 04/28/22 07:15 Acetylcysteine 20% 200 Mg/1 Ml *For Inhalation Use* INHALATION 200 mg Q8HRT SEGUNDO Administration Albuterol 2.5 mg 04/06/22 16:00 04/28/22 07:14 Albuterol 2.5 Mg/3 Ml Nebu IH 2.5 mg Q8HRT SEGUNDO Administration Bisacodyl 10 mg 04/07/22 09:44 04/12/22 10:06 Bisacodyl 10 Mg Rect Supp SD 10 mg QDAY PRN Administration Constipation Dextrose 50 ml 04/06/22 17:54 Dextrose 50% In Water (25gm) 50 Ml Syringe IV Q30MIN PRN Hypoglycemia Protocol Docusate Sodium 100 mg 04/28/22 10:00 04/28/22 09:24 Docusate Sodium 100 Mg/10 Ml Oral Liqd FEEDTUBE 100 mg BID SEGUNDO Administration Famotidine 20 mg 04/06/22 10:00 04/28/22 09:24 Famotidine 20 Mg Tab FEEDTUBE 20 mg BID SEGUNDO Administration Fentanyl 50 mcg 04/04/22 15:56 04/23/22 17:00 Fentanyl 100 Mcg/2 Ml Inj IV 50 mcg Q2HR PRN Administration For CPOT of greater than 3 Heparin Sodium (Porcine) 5,000 unit 04/03/22 06:00 04/28/22 13:38 Heparin 5,000 Unit/1 Ml Vial SUB-Q 5,000 unit Q8HR SEGUNDO Administration Insulin Human Regular 0 units 04/06/22 18:00 04/28/22 13:39 Insulin Regular, Human 100 Units/1 Ml SUB-Q Not Given Q6H SEGUNDO Protocol Magnesium Hydroxide 30 ml 04/02/22 23:53 Magnesium Hydroxide (Mom) Oral Liqd Udc PO Q4H PRN Constipation Metoprolol Tartrate 25 mg 04/16/22 18:00 04/28/22 12:25 Metoprolol Tartrate 25 Mg Tab FEEDTUBE 25 mg Q6HR SEGUNDO Administration Ondansetron HCl 4 mg 04/02/22 23:53 Ondansetron 4 Mg/2 Ml Inj IV Q8H PRN Nausea And Vomiting Polyethylene Glycol 17 gm 04/08/22 10:00 04/28/22 09:24 Polyethylene Glycol 3350 17 Gm Powder PO 17 gm QDAY SEGUNDO Administration Quetiapine Fumarate 50 mg 04/28/22 10:00 04/28/22 09:25 Quetiapine 25 Mg Tab FEEDTUBE 50 mg BID SEGUNDO Administration Senna 17.6 mg 04/28/22 10:00 04/28/22 09:24 Sennosides Oral Liqd 8.8 Mg/5 Ml Oral Liqd FEEDTUBE 17.6 mg Q12HR SEGUNDO Administration Sodium Chloride 10 ml 04/03/22 10:00 04/28/22 09:26 Sodium Chloride 0.9% 10 Ml Flush Syringe IV 10 ml BID SEGUNDO Administration Sodium Chloride 10 ml 04/02/22 23:53 Sodium Chloride 0.9% 10 Ml Flush Syringe IV PRN PRN LINE FLUSH Nutrition/Malnutrition Assess - Dietary Evaluation Nutrition/Malnutrition Findings: Nutrition Notes Start: 04/04/22 13:13 Freq: Status: Active Protocol: Document 04/27/22 11:53 COLLEEN (Rec: 04/27/22 12:21 COLLEEN [id number]) Nutrition Notes Initial or Follow up Reassessment Current Diagnosis Coronary Artery Disease, Decubitus(Pressure Ulcer), Sepsis,Respiratory Failure, Malnutrition Other Pertinent Diagnosis HCAP, HFpEF, ALS, Pleural Effusion, R-Lung Collapse, .. . Current Diet TF-Vital AF 1.2 Inderjit @ 50 ml/hr (since D 04/15). Labs/Tests 04/27: Cl 93.2, CO2 37, Crea < 0.2, Glu 114. Pertinent Medications 04/27: Nutritionally unremarkable. Height 5 ft 4.8 in Weight 46.8 kg [place] Body Weight (kg) 61.27 BMI 17.2 Weight change and time frame No body weight change reported in 3 weeks. Weight Status Underweight Subjective/Other Information RD consult for routine F/U on TF tolerance/continuation. TF continues as prescribed, and well tolerated, according to RN notes. Pt continues on Mechanical ventilation, O2 saturation @ 96%, according to Physical Assessment Histroy notes. Pt continues to present constipation, according to Physical Assessment Histroy notes. 3 failed attempts to wean Pt from Mechanical Ventilation, Pt is back to previous settings in [facility], according to RN notes. Pt is pending authorization for LTAC placement, according to Progress notes. Percent of energy/protein needs met: Prescribed TF-Vital AF 1.2 Inderjit @ 50 ml/hr provides for energy/protein needs (1,450 Kcal/91 g) during LOS, 98% Kcal; 100% AA. Burn Absent Trauma Absent GI Symptoms Constipation Difficulty In Swallowing,Chewing Food Allergy No Skin Integrity/Comment Sacral open wound. Current % PO Other Minimum of two criteria No #1 Nutrition Diagnosis Inadequate oral intake Diagnosis Progress(for reassessment Continues documentation) Is patient on ventilator? Yes Is Patient Ambulatory and/or Out of Bed No REE-([facility]-confined to bed) 1476.002 Calculation Used for Recommendations [facility] Additional Notes Protein: 1.2-2 g/Kg IBW; 73- 122 g/day. Fluids: 1 ml/Kcal, or as per MD. Nutrition Intervention Nutrition Support: Continue TF-Vital AF 1.2 Inderjit @ 50 ml/hr. Flush: 80 ml water Q 4 hr, or as per MD. Kcal 1,450 Protein (gm) 91 Carbohydrates (gm) 134 Fat (gm) 65 Fluid (mL) 980 Fiber (gm) 6 % RDI: 98% Kcal; 100% AA. Goal #1 Provide at least 75% of energy /protein needs through Enteral Feeding during LOS. Follow-Up By: 05/04/22 Additional Comments Continue monitoring TF tolerance and BM.
[2022-04-21] MEDS: ACETAMINOPHEN 325 MG TAB PO PRN (16:23)
[2022-04-21] MEDS: fentaNYL 100 MCG/2 ML INJ IV PRN (16:45)
[2022-04-21] MEDS: ACETYLCYSTEINE 20% 200 MG/1 ML *FOR INHALATION USE INHALATION SCH (18:16)
[2022-04-21] MEDS ORDERED: QUEtiapine 100 MG TAB PO SCH (22:00)
[2022-04-22] MEDS: ACETYLCYSTEINE 20% 200 MG/1 ML *FOR INHALATION USE INHALATION SCH ×3 (00:10→15:14)
[2022-04-22] MEDS: ALBUTEROL 2.5 MG/3 ML NEBU IH SCH ×3 (00:10→15:14)
[2022-04-22] MEDS: INSULIN REGULAR, HUMAN 100 UNITS/1 ML SUB-Q SCH ×4 (00:44→19:03)
[2022-04-22] MEDS: METOPROLOL TARTRATE 25 MG TAB FEEDTUBE SCH ×4 (00:44→19:03)
[2022-04-22] MEDS: HEPARIN 5,000 UNIT/1 ML VIAL SUB-Q SCH ×3 (05:18→22:13)
[2022-04-22 05:34] LABS: Mean Corpuscular HGB Conc 32 % (32-34); Mean Corpuscular Volume 95 fl (84-94); Platelet Count 375 K/mm3 (140-440); Red Blood Count 2.96 M/mm3 (3.65-5.03); Red Cell Distribution Width 13.8 % (13.2-15.2)
[2022-04-22 05:53] LABS: Blood Urea Nitrogen 23 mg/dL (9-20); Calcium 8.5 mg/dL (8.4-10.2); Hemolysis Index 15
[2022-04-22 06:22] LABS: BUN/Creatinine Ratio 115
[2022-04-22 09:14] LABS: ABG Base Excess 20.9 mmol/L (-2.0-3.0); ABG HCO3 48.5 mmol/L (20.0-26.0); ABG Methemoglobin 0.3 % (0.0-1.5); ABG Oxygen Saturation 92.1 % (95.0-99.0); ABG PCO2 78.1 mm Hg; ABG PH 7.411 pH Units (7.350-7.450); ABG PO2 54.1 mm Hg (80.0-90.0)
[2022-04-22] MEDS: DOCUSATE SODIUM 100 MG/10 ML ORAL LIQD PO SCH ×2 (09:45→22:12)
[2022-04-22] MEDS: SENNOSIDES ORAL LIQD 8.8 MG/5 ML ORAL LIQD PO SCH ×2 (09:46→22:13)
[2022-04-22] MEDS: POLYETHYLENE GLYCOL 3350 17 GM POWDER PO SCH (09:46)
[2022-04-22] MEDS: QUEtiapine 25 MG TAB PO SCH ×2 (10:26→22:12)
[2022-04-22] MEDS: FAMOTIDINE 20 MG TAB FEEDTUBE SCH (10:26)
[2022-04-22] MEDS: fentaNYL 100 MCG/2 ML INJ IV PRN (10:30)
--- NOTE | 2022-04-22 12:56 | Progress Note ---
Assessment and Plan - Patient Problems (1) Respiratory failure Current Visit: Yes Status: Acute Plan to address problem: Patient presented with acute respiratory failure, with chest x-ray showing total whiteout of the right lung, due to acute pneumonia, large right pleural effusion and collapse of the right lung. Continue supportive management, antibiotics. (2) Acute coronary syndrome Current Visit: Yes Status: Acute Plan to address problem: The patient's interval ECGs while in the ICU showed dynamic changes of anterior wall ischemia or infarction. Patient has severe comorbidities including progressive total paralysis of ALS, and intercurrent respiratory failure with large right pleural effusion and total collapse of the right lung. Currently assessed as a poor candidate for aggressive cardiac management due to the multiple severe acute and chronic comorbidities. He has been placed on conservative, empiric coronary artery disease medical therapy. A trach PEG procedure has been completed, discharge planning for retirement facility placement is in progress. Subjective Date of service: 04/22/22 Principal diagnosis: Ac and ch hypercapnic and hypoxemic Resp Failure; ALS; HCAP; Sepsis; NSTEMI Interval history: Patient is awake, on the vent via trach. Objective Vital Signs Temp Pulse Pulse Pulse Resp Resp BP 04/22/22 12:00 98 F 110 H 15 134/85 04/22/22 11:02 99 H 130/74 04/22/22 11:00 98 H 14 130/74 04/22/22 10:00 82 15 132/78 04/22/22 09:00 90 18 128/77 04/22/22 08:15 18 04/22/22 08:00 97.8 F 92 H 25 H 127/80 04/22/22 07:45 92 H 86 16 131/82 04/22/22 07:00 93 H 17 135/79 04/22/22 06:00 88 15 114/74 04/22/22 05:19 99 H 115/68 04/22/22 05:00 96 H 17 125/68 04/22/22 04:00 98.2 F 96 H 91 H 15 125/68 04/22/22 03:00 92 H 16 121/62 04/22/22 02:00 87 15 110/63 04/22/22 01:00 92 H 14 99/57 04/22/22 00:44 94 H 112/61 04/22/22 00:00 97.7 F 91 H 94 H 98 H 13 14 121/70 06/15/22 23:13 85 18 115/62 04/21/22 23:00 95 H 16 115/62 04/21/22 22:00 92 H 14 99/56 04/21/22 21:00 89 17 131/75 04/21/22 20:00 98.2 F 95 H 76 19 146/80 04/21/22 19:00 77 14 103/60 04/21/22 18:13 103 H 142/84 04/21/22 18:00 108 H 18 142/84 04/21/22 17:00 106 H 18 136/91 04/21/22 16:00 99.2 F 95 H 101 H 95 H 19 14 142/77 04/21/22 15:01 91 H 21 132/84 04/21/22 14:00 79 14 120/74 04/21/22 13:00 93 H 14 115/61 Pulse Ox Pulse Ox 04/22/22 12:00 99 04/22/22 11:02 99 04/22/22 11:00 99 04/22/22 10:00 95 04/22/22 09:00 95 04/22/22 08:15 93 04/22/22 08:00 84 04/22/22 07:45 90 92 04/22/22 07:00 96 04/22/22 06:00 94 04/22/22 05:19 04/22/22 05:00 90 04/22/22 04:00 92 04/22/22 03:00 94 04/22/22 02:00 96 04/22/22 01:00 97 04/22/22 00:44 04/22/22 00:00 93 92 04/21/22 23:13 89 04/21/22 23:00 89 04/21/22 22:00 95 04/21/22 21:00 88 04/21/22 20:00 88 04/21/22 19:00 98 04/21/22 18:13 04/21/22 18:00 89 04/21/22 17:00 87 04/21/22 16:00 93 96 04/21/22 15:01 86 04/21/22 14:00 98 04/21/22 13:00 97 - Physical Examination General: Other (Awake, on the vent via a tracheostomy) HEENT: Positive: PERRL, Normocephaly, Other (ET-tube in place) Neck: Positive: neck supple, trachea midline (intubated). Negative: JVD/HJR Cardiac: Positive: Reg Rate and Rhythm Lungs: Positive: Decreased Breath Sounds Neuro: Positive: Other (Awake, on the vent via tracheostomy) Abdomen: Positive: Soft Skin: Positive: Clear Extremities: Present: Other (TR.EDEMA). Absent: edema (NO) - Labs and Meds CBC 04/22/22 Range/Units 05:03 WBC 12.7 H (4.5-11.0) K/mm3 RBC 2.96 L (3.65-5.03) M/mm3 Hgb 9.0 L (11.8-15.2) gm/dl Hct 28.0 L (35.5-45.6) % Plt Count 375 (140-440) K/mm3 Comprehensive Metabolic Panel 04/22/22 Range/Units 05:03 Sodium 140 (137-145) mmol/L Potassium 4.6 (3.6-5.0) mmol/L Chloride 93.9 L (98-107) mmol/L Carbon Dioxide 43 H* (22-30) mmol/L BUN 23 H (9-20) mg/dL Creatinine < 0.2 L (0.8-1.3) mg/dL Glucose 137 H (75-100) mg/dL Calcium 8.5 (8.4-10.2) mg/dL - Allied health notes Allied health notes reviewed: RT
--- NOTE | 2022-04-22 14:21 | Progress Note ---
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, recently hospitalized at [facility] admitted for acute hypoxemic respiratory failure 2/2 pneumonia Neuro: h/o ALS -s/p precedex, fentanyl gtt -Reorientation as needed -Maintain sleep-wake cycle -As needed analgesia -CT head with no acute intracranial process -Per family patient is nonverbal at baseline but responsive -Seroquel Cardiac: Suspect ischemic coronary artery disease, h/o cardiomyopathy -Cardiology consulted, appreciate recommendations -continue conservative management -Blood pressure monitoring per protocol -s/p Vasopressor support with Levophed -Echocardiogram shows ejection fraction of 40 to 45%, mild global hypokinesis of left ventricle -Nitro patch, BB Respiratory: Acute hypoxic respiratory failure -CCM consulted, appreciate recommendations -Intubated on 04/02 with a 7.50 ETT attempt at the lips -s/p trach on 04/14 and s/p bronch on 04/15 -A.m. vent settings: Assist-control/ PRVC TV 400, rate 14, Peep 8, FiO2 60% -See RT notes for titration -CPT and mucomyst -VAP bundle -SPO2 monitoring GI: Moderate protein calorie malnutrition, constipation -24 hours +680 mL -PPI -Peg 04/14 -NTR consulted for tube feedings -BR: Senokot/colace, MiraLAX : NAD -Record intake and output -Renally dose medications -Avoid nephrotoxic medications -Daily weights -trend BMP ID: Sepsis, Acute Bronchopneumonia, HAP (Pseudomonas and Enterobacter tracheal aspirate), blood culture with bacillus species -Infectious disease consulted, appreciate recommendation -Per infectious disease patient was recently admitted to [facility] but discharged home with home hospice and not giving antibiotics -Tracheal aspirate with Pseudomonas aeruginosa, Enterobacter aerogenes -04/02 blood culture with bacillus species, 04/05 blood culture NGTD -CRP 31.6, procalcitonin 0.08 -MRSA (-) -s/p cefepime for 14 days -Monitor WBC and temperature curve Endo: NAD -Avoid hypoglycemia -SSI -Accu-Cheks q 6 Heme: Leukocytosis -Heparin subq -Trend CBC -Transfuse hemoglobin less than 7 -SCDs to BLE while in bed Advance Care Planning - Disease education, care plan, diagnoses, and prognosis were discussed patient's , Carly Lopez, and patient daughter, Kaylee Warren, who translated for #[phone]. They reported that patient was following at [facility] for his ALS and during recent hospitalization at [facility] they were told nothing else can be offered to patient at this time and patient was discharge home with home hospice and PO morphine. First hospice visit was on , 04/01 however, patient became unresponsive 04/02 and they brought in to the hospital. - Goal of care and code status were also addressed at that time. Family wants to wait for a couple days to see how patient respond to current treatment before making a decision. All questions and concerns were addressed at this time. Patient family acknowledged understanding and agreement with care plan. -Patient remains a FULL CODE status. -04/05: Discussion at bedside with interpreting service with Dr. Valdivia and family state they would discuss next steps amongst themselves and let healthcare team know of decisions -04/06: extensive discussion with family ( and son) with Dr. Grayson regarding goals of care -04/08: Extensive discussion with with the use of full time staff interpreter line regarding goals of care; no decision made. Possible consult to surgery for trach/PEG reuben y next week. -04/09: Discussion with and her sister with Dr. Grayson and then with Dr. Pineda-> Consulted surgery for trach/peg -LTACH placement pending The high probability of a clinically significant, sudden or life threatening deterioration of the [resp] system(s) required my full and direct attention, intervention and personal management. The aggregate critical care time was [60] minutes. 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 Work-up in the emergency department revealed leukocytosis, elevated troponin and hyponatremia and CXR revealed moderate to large pleural effusion on the right. Patient was having agonal breathing in the emergency department and was intubated. Patient was admitted to the hospitalist service with consults to [facility], cardiology and infectious disease for further work-up. Hospital Course to Date: 04/03: Intubated and Sedated on versed gtt, RASS-5. CT head/brain noted with no acute intracranial abnormality. Plan to initiated precededx gtt and wean off versed for a RASS goal of 0 to -2. CT chect also reviewed, findings are most consistent with acute bronchopneumonia. Continue empiric IV Abx, vent adjustment per CCM. ID consulted. Continue to F/U on cultures. Titrate pressor for MAP above 65. Medical records requested from [facility]. 04/04: Remains stable on the vent, easily arousable on precedex gtt, not following commands. Plan for SAT/SBT today. PRN analgesia for CPOT greater than 3. Fevers improved, cultures and procal pending. Continue current IV abx, ID also consulted. Remains on low dose pressors, titrate pressors for a MAP above 65. 04/05: Long discussion with family with use of translation phone with [facility] regarding goals of care. Family to have meeting amongst themselves and informed care team of decisions. Fentanyl drip added for respiratory distress. Remains on Precedex drip. Antibiotics per ID. Given 2L NS bolus with levophed gtt 04/06: Family discussion with Dr. Grayson for goals of care. CXR shows possible mucus plug, continue CPT as FiO2 is being able to be weaned. Potassium repleted. Weaning fentnyl gtt. 04/07: Ultrasound guided thoracentesis today scheduled, inadequate amount of pleural effusion on so not completed. Patient was started on Levophed overnight which was weaned off this morning however had to be started twice a day. Remains on fentanyl and Precedex. Cardiology discontinued BB and ACEi in setting of hypotension. 04/08: COVID-19 PCR negative. Routine EEG ordered by cardiology which showed ST changes, cardiology aware. They will continue conservative treatment. Repeat troponins 0.030 which are less than admit of 0.048. Dr. Grayson had a long discussion with with the use of full time staff interpreter today at bedside and has not made a decision regarding goals of care. Possible consult to surgery for trach/PEG early next week. Continues to require Precedex and fentanyl drip for sedation. Carvedilol/lisinopril discontinued as patient is continuously on Levophed. 04/09: No acute events reported overnight, remains on fentanyl, Precedex and Levophed drips. Dr. Grayson and Dr. Pineda updated family at bedside extensively today. Consulted surgery for trach/PEG. COVID-19 PCR negative. 04/10: Patient noted to have desaturation episodes, FiO2 increased slightly to 35%. Will add Mucomyst. Remains on fentanyl and Precedex. Off of Levophed. Surgery consulted for trach/PEG. 04/11: FiO2 increased over night likely related to hypoxia, continues on fent gtt, weaning precedex gtt as he is also on Seroquel. Will d/w CCM re scheduled or prn oxycodone 04/12: Periods of hypoxia and tachycardia this am. Symptoms improved post deep suction and tracheal lavage, Repeat CXR noted with no significant change. Continue CPT and mucomyst. Plan for possible trach/PEG tomorrow by general surgery. 04/13: Remains stable on the vent. Patient is wake and tracking but does not follow simple commands. No report of hypoxia from overnight, continue CPT and mucomyst. Plan for track and PEG today by General Surgery. Plan for LTAC placement post procedure, case management to arrange. 04/14: VIRGILIO overnight, Trach and PEG postponed for today by general surgery. Plan for LTAC placement post procedure, case management to arrange. 04/15: S/p Trach and PEG. Up to 80% FiO2 this am, this am CXR noted suggesting po ssible mucus plug. D/W [facility] plan for bronch today. Continue CPT and mucomyst. Plan of care thoroughly discussed with patient's and son (who translated for ) at the bedside. Per , house servant had already discussed the risks and benefits of the procedure yesterday. She verbalized understanding and agreed with procedure and current care plan, consent signed. Okay to use PEG-tube for meds this am, resume TF once okay by general Surgery. Case management to arrange LTAC placement. 04/16: s/p Bronchocopy by [facility]. FiO2 down to 60%, angela 10 this am. This am CXR with moderate improvement. Continue CPT and mucomyst, wean Fio2 as tolerated for SPO2 above 92%. Patient is tolerating TF, advance to goal as ordered. Possible LTAC placement, case management to arrange. 04/17: VIRGILIO overnight. remains stable on the vent, recent CXR and this am ABG noted. Continue CPT and mucomyst, wean Fio2 as tolerated. 04/18: Remains stable on the vent, Fio2 down to 55% and peep of 8 this am. Continue to wean as tolerated, CPT, and mucomyst. Dsiposition- LTAC placement, case management to arrange. 04/19: No acute events overnight. Continue current management. 04/20: No acute events overnight, continue current management 04/21: Patient had chest ultrasound which showed trace pleural effusions, chest x-ray improved after the addition of Mucomyst yesterday. FiO2 55-65%. No acute events overnight. more interactive today. 04/22: Serouqul changed to BID, FiO2 was increased to 60%. RT increased FIO2 to 100 d/t desaturation into the 80s but was able to wean down. CCM increased PEEP and decreased FiO2. Hospitalist Physical - Constitutional Vitals: Temp Pulse Resp BP Pulse Ox 98 F 86 15 113/70 99 04/22/22 12:00 04/22/22 13:17 04/22/22 12:00 04/22/22 13:17 04/22/22 12:00 General appearance: Present: no acute distress, cachectic, other (trach/) - EENT Eyes: Present: PERRL, EOM intact - Neck Neck: Absent: masses or JVD, cervical LAD - Respiratory Respiratory effort: normal Respiratory: bilateral: diminished - Cardiovascular Rhythm: regular Heart Sounds: Present: S1 & S2. Absent: systolic murmur, diastolic murmur - Extremities Extremities: no ischemia, pulses intact, pulses symmetrical, No edema, normal temperature, normal color Peripheral Pulses: within normal limits - Abdominal General gastrointestinal: soft, non-tender, non-distended, normal bowel sounds - Integumentary Integumentary: Present: warm, dry - Psychiatric Psychiatric: cooperative - Neurologic Neurologic: CNII-XII intact, no focal deficits, moves all extremities - Allied Health Allied health notes reviewed: nursing, RT, social work HEART Score - HEART Score Troponin: Troponin T 0.031 ng/mL (0.00-0.029) H 04/08/22 17:47 Results - Labs CBC & Chem 7: 06/16/22 05:03 04/22/22 05:03 Labs: Laboratory Last Values WBC 12.7 K/mm3 (4.5-11.0) H 04/22/22 05:03 RBC 2.96 M/mm3 (3.65-5.03) L 04/22/22 05:03 Hgb 9.0 gm/dl (11.8-15.2) L 04/22/22 05:03 Hct 28.0 % (35.5-45.6) L 04/22/22 05:03 MCV 95 fl (84-94) H 04/22/22 05:03 MCH 31 pg (28-32) 04/22/22 05:03 MCHC 32 % (32-34) 04/22/22 05:03 RDW 13.8 % (13.2-15.2) 04/22/22 05:03 Plt Count 375 K/mm3 (140-440) 04/22/22 05:03 Lymph % (Auto) 4.3 % (13.4-35.0) L 04/07/22 03:51 Mcduffie % (Auto) 8.8 % (0.0-7.3) H 04/07/22 03:51 Eos % (Auto) 0.1 % (0.0-4.3) 04/07/22 03:51 Baso % (Auto) 0.2 % (0.0-1.8) 04/07/22 03:51 Lymph # (Auto) 0.6 K/mm3 (1.2-5.4) L 04/07/22 03:51 Mcduffie # (Auto) 1.3 K/mm3 (0.0-0.8) H 04/07/22 03:51 Eos # (Auto) 0.0 K/mm3 (0.0-0.4) 04/07/22 03:51 Baso # (Auto) 0.0 K/mm3 (0.0-0.1) 04/07/22 03:51 Add Manual Diff Complete 04/02/22 19:39 Total Counted 100 04/02/22 19:39 Seg Neutrophils % 86.6 % (40.0-70.0) H 04/07/22 03:51 Seg Neuts % (Manual) 94.0 % (40.0-70.0) H 04/02/22 19:39 Band Neutrophils % 0 % 04/02/22 19:39 Lymphocytes % (Manual) 1.0 % (13.4-35.0) L 04/02/22 19:39 Reactive Lymphs % (Man) 0 % 04/02/22 19:39 Monocytes % (Manual) 5.0 % (0.0-7.3) 04/02/22 19:39 Eosinophils % (Manual) 0 % (0.0-4.3) 04/02/22 19:39 Basophils % (Manual) 0 % (0.0-1.8) 04/02/22 19:39 Metamyelocytes % 0 % 04/02/22 19:39 Myelocytes % 0 % 04/02/22 19:39 Promyelocytes % 0 % 04/02/22 19:39 Blast Cells % 0 % 04/02/22 19:39 Nucleated RBC % Not Reportable 04/02/22 19:39 Seg Neutrophils # 12.7 K/mm3 (1.8-7.7) H 04/07/22 03:51 Seg Neutrophils # Man 13.4 K/mm3 (1.8-7.7) H 04/02/22 19:39 Band Neutrophils # 0.0 K/mm3 04/02/22 19:39 Lymphocytes # (Manual) 0.1 K/mm3 (1.2-5.4) L 04/02/22 19:39 Abs React Lymphs (Man) 0.0 K/mm3 04/02/22 19:39 Monocytes # (Manual) 0.7 K/mm3 (0.0-0.8) 04/02/22 19:39 Eosinophils # (Manual) 0.0 K/mm3 (0.0-0.4) 04/02/22 19:39 Basophils # (Manual) 0.0 K/mm3 (0.0-0.1) 04/02/22 19:39 Metamyelocytes # 0.0 K/mm3 04/02/22 19:39 Myelocytes # 0.0 K/mm3 04/02/22 19:39 Promyelocytes # 0.0 K/mm3 04/02/22 19:39 Blast Cells # 0.0 K/mm3 04/02/22 19:39 WBC Morphology Not Reportable 04/02/22 19:39 Hypersegmented Neuts Not Reportable 04/02/22 19:39 Hyposegmented Neuts Not Reportable 04/02/22 19:39 Hypogranular Neuts Not Reportable 04/02/22 19:39 Smudge Cells Not Reportable 04/02/22 19:39 Toxic Granulation Not Reportable 04/02/22 19:39 Toxic Vacuolation Not Reportable 04/02/22 19:39 Dohle Bodies Not Reportable 04/02/22 19:39 Pelger-Huet Anomaly Not Reportable 04/02/22 19:39 Terry Rods Not Reportable 04/02/22 19:39 Platelet Estimate Consistent w auto 04/02/22 19:39 Clumped Platelets Not Reportable 04/02/22 19:39 Plt Clumps, EDTA Not Reportable 04/02/22 19:39 Large Platelets Not Reportable 04/02/22 19:39 Giant Platelets Not Reportable 04/02/22 19:39 Platelet Satelliting Not Reportable 04/02/22 19:39 Plt Morphology Comment Not Reportable 04/02/22 19:39 RBC Morphology Not Reportable 04/02/22 19:39 Dimorphic RBCs Not Reportable 04/02/22 19:39 Polychromasia Not Reportable 04/02/22 19:39 Hypochromasia Not Reportable 04/02/22 19:39 Poikilocytosis Not Reportable 04/02/22 19:39 Anisocytosis 1+ 04/02/22 19:39 Microcytosis Not Reportable 04/02/22 19:39 Macrocytosis Not Reportable 04/02/22 19:39 Spherocytes Not Reportable 04/02/22 19:39 Pappenheimer Bodies Not Reportable 04/02/22 19:39 Sickle Cells Not Reportable 04/02/22 19:39 Target Cells Not Reportable 04/02/22 19:39 Tear Drop Cells Not Reportable 04/02/22 19:39 Ovalocytes Not Reportable 04/02/22 19:39 Helmet Cells Not Reportable 04/02/22 19:39 Patricio-Concho Bodies Not Reportable 04/02/22 19:39 [place] Rings Not Reportable 04/02/22 19:39 [place] Cells Not Reportable 04/02/22 19:39 Bite Cells Not Reportable 04/02/22 19:39 Crenated Cell Not Reportable 04/02/22 19:39 Elliptocytes Not Reportable 04/02/22 19:39 Acanthocytes (Spur) Not Reportable 04/02/22 19:39 Rouleaux Not Reportable 04/02/22 19:39 Hemoglobin C Crystals Not Reportable 04/02/22 19:39 Schistocytes Not Reportable 04/02/22 19:39 Malaria parasites Not Reportable 04/02/22 19:39 [place] Bodies Not Reportable 04/02/22 19:39 Hem Pathologist Commnt No 04/02/22 19:39 PT 13.6 Sec. (12.2-14.9) 04/13/22 04:30 INR 0.94 (0.87-1.13) 04/13/22 04:30 APTT 35.7 Sec. (24.2-36.6) 04/07/22 03:51 ABG pH 7.411 pH Units (7.350-7.450) 04/22/22 08:34 ABG pCO2 78.1 mm Hg 04/22/22 08:34 ABG pO2 54.1 mm Hg (80.0-90.0) L 04/22/22 08:34 ABG HCO3 48.5 mmol/L (20.0-26.0) H 04/22/22 08:34 ABG O2 Saturation 92.1 % (95.0-99.0) L 04/22/22 08:34 ABG O2 Content 11.5 (0.0-44) 04/22/22 08:34 ABG Base Excess 20.9 mmol/L (-2.0-3.0) H 04/22/22 08:34 ABG Hemoglobin 9.0 gm/dl (14.0-18.0) L 04/22/22 08:34 ABG Carboxyhemoglobin 1.3 % (0.0-5.0) 04/22/22 08:34 ABG Methemoglobin 0.3 % (0.0-1.5) 04/22/22 08:34 Oxyhemoglobin 90.6 % (95.0-99.0) L 04/22/22 08:34 FiO2 40 % 04/22/22 08:34 Sodium 140 mmol/L (137-145) 04/22/22 05:03 Potassium 4.6 mmol/L (3.6-5.0) 04/22/22 05:03 Chloride 93.9 mmol/L (98-107) L 04/22/22 05:03 Carbon Dioxide 43 mmol/L (22-30) H* 04/22/22 05:03 Anion Gap 8 mmol/L 04/22/22 05:03 BUN 23 mg/dL (9-20) H 04/22/22 05:03 Creatinine < 0.2 mg/dL (0.8-1.3) L 04/22/22 05:03 Estimated GFR > 60 ml/min 04/22/22 05:03 BUN/Creatinine Ratio 115 % 04/22/22 05:03 Glucose 137 mg/dL (75-100) H 04/22/22 05:03 POC Glucose 128 mg/dL (70-105) H 04/20/22 11:40 Lactic Acid 1.90 mmol/L (0.7-2.0) 04/02/22 19:39 Calcium 8.5 mg/dL (8.4-10.2) 04/22/22 05:03 Phosphorus 2.50 mg/dL (2.5-4.5) 04/17/22 04:36 Magnesium 2.10 mg/dL (1.7-2.3) 04/17/22 04:36 Total Bilirubin 0.80 mg/dL (0.1-1.2) 04/02/22 19:39 AST 15 units/L (5-40) 04/02/22 19:39 ALT 9 units/L (7-56) 04/02/22 19:39 Alkaline Phosphatase 43 units/L (35-129) 04/02/22 19:39 Total Creatine Kinase 46 units/L (55-170) L 04/08/22 17:47 CK-MB (CK-2) 2.6 ng/mL (0.0-4.0) 04/08/22 17:47 CK-MB (CK-2) Rel Index 5.6 (0-4) H 04/08/22 17:47 Troponin T 0.031 ng/mL (0.00-0.029) H 04/08/22 17:47 C-Reactive Protein 31.60 mg/dL (0.00-1.30) H 04/04/22 04:18 Total Protein 4.6 g/dL (6.3-8.2) L 04/02/22 19:39 Albumin 2.7 g/dL (3.9-5) L 04/02/22 19:39 Albumin/Globulin Ratio 1.4 % 04/02/22 19:39 Triglycerides 80 mg/dL (2-149) 04/02/22 19:39 Cholesterol 94 mg/dL (50-199) 04/02/22 19:39 LDL Cholesterol Direct 27 mg/dL (50-130) L 04/02/22 19:39 HDL Cholesterol 47 mg/dL (40-59) 04/02/22 19:39 Cholesterol/HDL Ratio 2.00 % 04/02/22 19:39 Procalcitonin 0.08 ng/mL (<0.15) 04/04/22 04:18 Urine Color Aracely (Yellow) 04/05/22 17:45 Urine Turbidity Cloudy (Clear) 04/05/22 17:45 Urine pH 5.0 (5.0-7.0) 04/05/22 17:45 Ur Specific [place] 1.021 (1.003-1.030) 04/05/22 17:45 Urine Protein 30 mg/dl mg/dL (Negative) 04/05/22 17:45 Urine Glucose (UA) Neg mg/dL (Negative) 04/05/22 17:45 Urine Ketones Tr mg/dL (Negative) 04/05/22 17:45 Urine Blood Sm (Negative) 04/05/22 17:45 Urine Nitrite Neg (Negative) 04/05/22 17:45 Urine Bilirubin Neg (Negative) 04/05/22 17:45 Urine Urobilinogen < 2.0 mg/dL (<2.0) 04/05/22 17:45 Ur Leukocyte Esterase Tr (Negative) 04/05/22 17:45 Urine WBC (Auto) 8.0 /HPF (0.0-6.0) H 04/05/22 17:45 Urine RBC (Auto) 3.0 /HPF (0.0-6.0) 04/05/22 17:45 U Epithel Cells (Auto) 2.0 /HPF (0-13.0) 04/05/22 17:45 Urine Bacteria (Auto) 1+ /HPF (Negative) 04/02/22 Unknown Hyaline Casts 1 /LPF 04/05/22 17:45 Urine Mucus 3+ /HPF 04/05/22 17:45 Nasal Screen MRSA (PCR) Negative (Negative) 04/05/22 12:37 Vancomycin Trough 6.0 ug/mL (5.0-20.0) 04/05/22 18:53 Coronavirus (PCR) Negative (Negative) 04/07/22 14:52 Perez/IV: Voiding Method Condom Catheter Active Medications - Current Medications Current Medications: Generic Name Dose Route Start Last Admin Trade Name Freq PRN Reason Stop Dose Admin Acetaminophen 650 mg 04/02/22 23:53 04/21/22 16:23 Acetaminophen 325 Mg Tab PO 650 mg Q6H PRN Administration Pain MILD(1-3)/Fever >100.5/FAITH Acetylcysteine 200 mg 04/21/22 16:00 04/22/22 07:45 Acetylcysteine 20% 200 Mg/1 Ml *For Inhalation Use* INHALATION Not Given Q8HRT SEGUNDO Albuterol 2.5 mg 04/06/22 16:00 04/22/22 07:45 Albuterol 2.5 Mg/3 Ml Nebu IH 2.5 mg Q8HRT SEGUNDO Administration Bisacodyl 10 mg 04/07/22 09:44 04/12/22 10:06 Bisacodyl 10 Mg Rect Supp DE 10 mg QDAY PRN Administration Constipation Dextrose 50 ml 04/06/22 17:54 Dextrose 50% In Water (25gm) 50 Ml Syringe IV Q30MIN PRN Hypoglycemia Protocol Docusate Sodium 100 mg 04/03/22 15:00 04/22/22 09:45 Docusate Sodium 100 Mg/10 Ml Oral Liqd PO Not Given BID SEGUNDO Famotidine 20 mg 04/06/22 10:00 04/22/22 10:26 Famotidine 20 Mg Tab FEEDTUBE 20 mg BID SEGUNDO Administration Fentanyl 50 mcg 04/04/22 15:56 04/22/22 10:30 Fentanyl 100 Mcg/2 Ml Inj IV 50 mcg Q2HR PRN Administration For CPOT of greater than 3 Heparin Sodium (Porcine) 5,000 unit 04/03/22 06:00 04/22/22 13:17 Heparin 5,000 Unit/1 Ml Vial SUB-Q 5,000 unit Q8HR SEGUNDO Administration Insulin Human Regular 0 units 04/06/22 18:00 04/22/22 13:17 Insulin Regular, Human 100 Units/1 Ml SUB-Q Not Given Q6H [facility] Protocol Magnesium Hydroxide 30 ml 04/02/22 23:53 Magnesium Hydroxide (Mom) Oral Liqd Udc PO Q4H PRN Constipation Metoprolol Tartrate 25 mg 04/16/22 18:00 04/22/22 13:17 Metoprolol Tartrate 25 Mg Tab FEEDTUBE 25 mg Q6HR SEGUNDO Administration Ondansetron HCl 4 mg 04/02/22 23:53 Ondansetron 4 Mg/2 Ml Inj IV Q8H PRN Nausea And Vomiting Polyethylene Glycol 17 gm 04/08/22 10:00 04/22/22 09:46 Polyethylene Glycol 3350 17 Gm Powder PO Not Given QDAY SEGUNDO Quetiapine Fumarate 50 mg 04/22/22 10:00 04/22/22 10:26 Quetiapine 25 Mg Tab PO 50 mg BID SEGUNDO Administration Senna 17.6 mg 04/03/22 22:00 04/22/22 09:46 Sennosides Oral Liqd 8.8 Mg/5 Ml Oral Liqd PO Not Given Q12HR SEGUNDO Sodium Chloride 10 ml 04/03/22 10:00 04/21/22 21:10 Sodium Chloride 0.9% 10 Ml Flush Syringe IV 10 ml BID SEGUNDO Administration Sodium Chloride 10 ml 04/02/22 23:53 Sodium Chloride 0.9% 10 Ml Flush Syringe IV PRN PRN LINE FLUSH Nutrition/Malnutrition Assess - Dietary Evaluation Nutrition/Malnutrition Findings: Nutrition Notes Start: 04/04/22 13:13 Freq: Status: Active Protocol: Document 04/20/22 11:36 COLLEEN (Rec: 04/20/22 12:00 COLLEEN [id number]) Nutrition Notes Initial or Follow up Reassessment Current Diagnosis Coronary Artery Disease, Respiratory Failure, Malnutrition Other Pertinent Diagnosis HCAP, HFpEF, ALS, Pleural Effusion, R-Lung Collapse, Hypotension, ... Current Diet TF-Vital AF 1.2 Inderjit @ 50 ml/hr (since D 04/15). Labs/Tests 04/19: Cl 96.2, CO2 40, BUN 24 , Crea <0.2, Glu 125, Ca 8.3. Pertinent Medications 04/20: Nutritionally unremarkable. Height 5 ft 4.8 in Weight 46.8 kg [place] Body Weight (kg) 61.27 BMI 17.2 Weight change and time frame No body weight change reported in 2 weeks. Weight Status Underweight Subjective/Other Information RD consult for routine F/U on TF tolerance/continuation. TF continues as prescribed, and well tolerated, according to RN notes. RN note on 04/20/22 06:13: No acute changes throughout night . Trach intact to vent, with Fi02 @ 55%. Peg intact with patient tolerating tube feedings as ordered. Vitals stable. Currently 93/53, 93, 14, 95%. Pt continues on Mechanical ventilation, O2 saturation @ 96%, according to Physical Assessment Histroy notes. Pt presents constipation, according to Physical Assessment Histroy notes. Tracheostomy and PEG tube placement on 04/15, well tolerated, according to Progress notes. LTAC placement still pending. Percent of energy/protein needs met: Prescribed TF-Vital AF 1.2 Inderjit @ 50 ml/hr provides for energy/protein needs (1,450 Kcal/91 g) during LOS, 98% Kcal; 100% AA. Burn Absent Trauma Absent GI Symptoms Constipation Difficulty In Swallowing,Chewing Food Allergy No Skin Integrity/Comment Sacral open wound. Current % PO Other Minimum of two criteria No #1 Nutrition Diagnosis Inadequate oral intake Diagnosis Progress(for reassessment Continues documentation) Is patient on ventilator? Yes Is Patient Ambulatory and/or Out of Bed No REE-([facility]-confined to bed) 4236.241 Calculation Used for Recommendations [facility] Additional Notes Protein: 1.2-2 g/Kg IBW; 73- 122 g/day. Fluids: 1 ml/Kcal, or as per MD. Nutrition Intervention Nutrition Support: Continue TF-Vital AF 1.2 Inderjit @ 50 ml/hr. Flush: 80 ml water Q 4 hr, or as per MD. Kcal 1,450 Protein (gm) 91 Carbohydrates (gm) 134 Fat (gm) 65 Fluid (mL) 980 Fiber (gm) 6 % RDI: 98% Kcal; 100% AA. Goal #1 Provide at least 75% of energy /protein needs through Enteral Feeding during LOS. Follow-Up By: 04/27/22 Additional Comments Continue monitoring TF tolerance and BM. <NORM GRAYSON - Last Filed: 04/28/22 14:38> Assessment and Plan Assessment and plan: I saw and evaluated the patient. Discussed with the nurse practitioner and agree with their findings and plan as documented in this note. Hospitalist Physical - Constitutional Vitals: Temp Pulse Resp BP Pulse Ox 99.1 F 109 H 15 111/66 100 04/28/22 11:43 04/28/22 13:00 04/28/22 13:00 04/28/22 13:00 04/28/22 13:00 HEART Score - HEART Score Troponin: Troponin T 0.031 ng/mL (0.00-0.029) H 04/08/22 17:47 Results - Labs CBC & Chem 7: 04/26/22 04:22 04/26/22 04:22 Labs: Laboratory Last Values WBC 10.0 K/mm3 (4.5-11.0) 04/26/22 04:22 RBC 2.88 M/mm3 (3.65-5.03) L 04/26/22 04:22 Hgb 8.9 gm/dl (11.8-15.2) L 04/26/22 04:22 Hct 26.8 % (35.5-45.6) L 04/26/22 04:22 MCV 93 fl (84-94) 04/26/22 04:22 MCH 31 pg (28-32) 04/26/22 04:22 MCHC 33 % (32-34) 04/26/22 04:22 RDW 13.8 % (13.2-15.2) 04/26/22 04:22 Plt Count 376 K/mm3 (140-440) 04/26/22 04:22 Lymph % (Auto) 4.3 % (13.4-35.0) L 04/07/22 03:51 [place]ff[place] % (Auto) 8.8 % (0.0-7.3) H 04/07/22 03:51 Eos % (Auto) 0.1 % (0.0-4.3) 04/07/22 03:51 Baso % (Auto) 0.2 % (0.0-1.8) 04/07/22 03:51 Lymph # (Auto) 0.6 K/mm3 (1.2-5.4) L 04/07/22 03:51 Mcduffie # (Auto) 1.3 K/mm3 (0.0-0.8) H 04/07/22 03:51 Eos # (Auto) 0.0 K/mm3 (0.0-0.4) 04/07/22 03:51 Baso # (Auto) 0.0 K/mm3 (0.0-0.1) 04/07/22 03:51 Add Manual Diff Complete 04/02/22 19:39 Total Counted 100 04/02/22 19:39 Seg Neutrophils % 86.6 % (40.0-70.0) H 04/07/22 03:51 Seg Neuts % (Manual) 94.0 % (40.0-70.0) H 04/02/22 19:39 Band Neutrophils % 0 % 04/02/22 19:39 Lymphocytes % (Manual) 1.0 % (13.4-35.0) L 04/02/22 19:39 Reactive Lymphs % (Man) 0 % 04/02/22 19:39 Monocytes % (Manual) 5.0 % (0.0-7.3) 04/02/22 19:39 Eosinophils % (Manual) 0 % (0.0-4.3) 04/02/22 19:39 Basophils % (Manual) 0 % (0.0-1.8) 04/02/22 19:39 Metamyelocytes % 0 % 04/02/22 19:39 Myelocytes % 0 % 04/02/22 19:39 Promyelocytes % 0 % 04/02/22 19:39 Blast Cells % 0 % 04/02/22 19:39 Nucleated RBC % Not Reportable 04/02/22 19:39 Seg Neutrophils # 12.7 K/mm3 (1.8-7.7) H 04/07/22 03:51 Seg Neutrophils # Man 13.4 K/mm3 (1.8-7.7) H 04/02/22 19:39 Band Neutrophils # 0.0 K/mm3 04/02/22 19:39 Lymphocytes # (Manual) 0.1 K/mm3 (1.2-5.4) L 04/02/22 19:39 Abs React Lymphs (Man) 0.0 K/mm3 04/02/22 19:39 Monocytes # (Manual) 0.7 K/mm3 (0.0-0.8) 04/02/22 19:39 Eosinophils # (Manual) 0.0 K/mm3 (0.0-0.4) 04/02/22 19:39 Basophils # (Manual) 0.0 K/mm3 (0.0-0.1) 04/02/22 19:39 Metamyelocytes # 0.0 K/mm3 04/02/22 19:39 Myelocytes # 0.0 K/mm3 04/02/22 19:39 Promyelocytes # 0.0 K/mm3 04/02/22 19:39 Blast Cells # 0.0 K/mm3 04/02/22 19:39 WBC Morphology Not Reportable 04/02/22 19:39 Hypersegmented Neuts Not Reportable 04/02/22 19:39 Hyposegmented Neuts Not Reportable 04/02/22 19:39 Hypogranular Neuts Not Reportable 04/02/22 19:39 Smudge Cells Not Reportable 04/02/22 19:39 Toxic Granulation Not Reportable 04/02/22 19:39 Toxic Vacuolation Not Reportable 04/02/22 19:39 Dohle Bodies Not Reportable 04/02/22 19:39 Pelger-Huet Anomaly Not Reportable 04/02/22 19:39 Terry Rods Not Reportable 04/02/22 19:39 Platelet Estimate Consistent w auto 04/02/22 19:39 Clumped Platelets Not Reportable 04/02/22 19:39 Plt Clumps, EDTA Not Reportable 04/02/22 19:39 Large Platelets Not Reportable 04/02/22 19:39 Giant Platelets Not Reportable 04/02/22 19:39 Platelet Satelliting Not Reportable 04/02/22 19:39 Plt Morphology Comment Not Reportable 04/02/22 19:39 RBC Morphology Not Reportable 04/02/22 19:39 Dimorphic RBCs Not Reportable 04/02/22 19:39 Polychromasia Not Reportable 04/02/22 19:39 Hypochromasia Not Reportable 04/02/22 19:39 Poikilocytosis Not Reportable 04/02/22 19:39 Anisocytosis 1+ 04/02/22 19:39 Microcytosis Not Reportable 04/02/22 19:39 Macrocytosis Not Reportable 04/02/22 19:39 Spherocytes Not Reportable 04/02/22 19:39 Pappenheimer Bodies Not Reportable 04/02/22 19:39 Sickle Cells Not Reportable 04/02/22 19:39 Target Cells Not Reportable 04/02/22 19:39 Tear Drop Cells Not Reportable 04/02/22 19:39 Ovalocytes Not Reportable 04/02/22 19:39 Helmet Cells Not Reportable 04/02/22 19:39 Patricio-Concho Bodies Not Reportable 04/02/22 19:39 [place] Rings Not Reportable 04/02/22 19:39 [place] Cells Not Reportable 04/02/22 19:39 Bite Cells Not Reportable 04/02/22 19:39 Crenated Cell Not Reportable 04/02/22 19:39 Elliptocytes Not Reportable 04/02/22 19:39 Acanthocytes (Spur) Not Reportable 04/02/22 19:39 Rouleaux Not Reportable 04/02/22 19:39 Hemoglobin C Crystals Not Reportable 04/02/22 19:39 Schistocytes Not Reportable 04/02/22 19:39 Malaria parasites Not Reportable 04/02/22 19:39 [place] Bodies Not Reportable 04/02/22 19:39 Hem Pathologist Commnt No 04/02/22 19:39 PT 13.6 Sec. (12.2-14.9) 04/13/22 04:30 INR 0.94 (0.87-1.13) 04/13/22 04:30 APTT 35.7 Sec. (24.2-36.6) 04/07/22 03:51 ABG pH 7.457 pH Units (7.350-7.450) H 04/25/22 09:00 ABG pCO2 61.7 mm Hg 04/25/22 09:00 ABG pO2 66.7 mm Hg (80.0-90.0) L 04/25/22 09:00 ABG HCO3 42.6 mmol/L (20.0-26.0) H 04/25/22 09:00 ABG O2 Saturation 95.7 % (95.0-99.0) 04/25/22 09:00 ABG O2 Content 20.0 (0.0-44) 04/25/22 09:00 ABG Base Excess 15.3 mmol/L (-2.0-3.0) H 04/25/22 09:00 ABG Hemoglobin 8.8 gm/dl (14.0-18.0) L 04/25/22 09:00 ABG Carboxyhemoglobin 1.3 % (0.0-5.0) 04/25/22 09:00 ABG Methemoglobin 0.4 % (0.0-1.5) 04/25/22 09:00 Oxyhemoglobin 94.1 % (95.0-99.0) L 04/25/22 09:00 FiO2 35 % 04/25/22 09:00 Sodium 137 mmol/L (137-145) 04/26/22 04:22 Potassium 4.3 mmol/L (3.6-5.0) 04/26/22 04:22 Chloride 93.2 mmol/L (98-107) L 04/26/22 04:22 Carbon Dioxide 37 mmol/L (22-30) H 04/26/22 04:22 Anion Gap 11 mmol/L 04/26/22 04:22 BUN 16 mg/dL (9-20) 04/26/22 04:22 Creatinine < 0.2 mg/dL (0.8-1.3) L 04/26/22 04:22 Estimated GFR > 60 ml/min 04/26/22 04:22 BUN/Creatinine Ratio 80 % 04/26/22 04:22 Glucose 114 mg/dL (75-100) H 04/26/22 04:22 POC Glucose 128 mg/dL (70-105) H 04/20/22 11:40 Lactic Acid 1.90 mmol/L (0.7-2.0) 04/02/22 19:39 Calcium 8.5 mg/dL (8.4-10.2) 04/26/22 04:22 Phosphorus 3.60 mg/dL (2.5-4.5) 04/26/22 04:22 Magnesium 1.90 mg/dL (1.7-2.3) 04/26/22 04:22 Total Bilirubin 0.80 mg/dL (0.1-1.2) 04/02/22 19:39 AST 15 units/L (5-40) 04/02/22 19:39 ALT 9 units/L (7-56) 04/02/22 19:39 Alkaline Phosphatase 43 units/L (35-129) 04/02/22 19:39 Total Creatine Kinase 46 units/L (55-170) L 04/08/22 17:47 CK-MB (CK-2) 2.6 ng/mL (0.0-4.0) 04/08/22 17:47 CK-MB (CK-2) Rel Index 5.6 (0-4) H 04/08/22 17:47 Troponin T 0.031 ng/mL (0.00-0.029) H 04/08/22 17:47 C-Reactive Protein 31.60 mg/dL (0.00-1.30) H 04/04/22 04:18 Total Protein 4.6 g/dL (6.3-8.2) L 04/02/22 19:39 Albumin 2.7 g/dL (3.9-5) L 04/02/22 19:39 Albumin/Globulin Ratio 1.4 % 04/02/22 19:39 Triglycerides 80 mg/dL (2-149) 04/02/22 19:39 Cholesterol 94 mg/dL (50-199) 04/02/22 19:39 LDL Cholesterol Direct 27 mg/dL (50-130) L 04/02/22 19:39 HDL Cholesterol 47 mg/dL (40-59) 04/02/22 19:39 Cholesterol/HDL Ratio 2.00 % 04/02/22 19:39 Procalcitonin 0.08 ng/mL (<0.15) 04/04/22 04:18 Urine Color Aracely (Yellow) 04/05/22 17:45 Urine Turbidity Cloudy (Clear) 04/05/22 17:45 Urine pH 5.0 (5.0-7.0) 04/05/22 17:45 Ur Specific [place] 1.021 (1.003-1.030) 04/05/22 17:45 Urine Protein 30 mg/dl mg/dL (Negative) 04/05/22 17:45 Urine Glucose (UA) Neg mg/dL (Negative) 04/05/22 17:45 Urine Ketones Tr mg/dL (Negative) 04/05/22 17:45 Urine Blood Sm (Negative) 04/05/22 17:45 Urine Nitrite Neg (Negative) 04/05/22 17:45 Urine Bilirubin Neg (Negative) 04/05/22 17:45 Urine Urobilinogen < 2.0 mg/dL (<2.0) 04/05/22 17:45 Ur Leukocyte Esterase Tr (Negative) 04/05/22 17:45 Urine WBC (Auto) 8.0 /HPF (0.0-6.0) H 04/05/22 17:45 Urine RBC (Auto) 3.0 /HPF (0.0-6.0) 04/05/22 17:45 U Epithel Cells (Auto) 2.0 /HPF (0-13.0) 04/05/22 17:45 Urine Bacteria (Auto) 1+ /HPF (Negative) 04/02/22 Unknown Hyaline Casts 1 /LPF 04/05/22 17:45 Urine Mucus 3+ /HPF 04/05/22 17:45 Nasal Screen MRSA (PCR) Negative (Negative) 04/05/22 12:37 Vancomycin Trough 6.0 ug/mL (5.0-20.0) 04/05/22 18:53 Coronavirus (PCR) Negative (Negative) 04/07/22 14:52 Perez/IV: Voiding Method Condom Catheter Active Medications - Current Medications Current Medications: Generic Name Dose Route Start Last Admin Trade Name Freq PRN Reason Stop Dose Admin Acetaminophen 650 mg 04/02/22 23:53 04/21/22 16:23 Acetaminophen 325 Mg Tab PO 650 mg Q6H PRN Administration Pain MILD(1-3)/Fever >100.5/FAITH Acetylcysteine 200 mg 04/21/22 16:00 04/28/22 07:15 Acetylcysteine 20% 200 Mg/1 Ml *For Inhalation Use* INHALATION 200 mg Q8HRT SEGUNDO Administration Albuterol 2.5 mg 04/06/22 16:00 04/28/22 07:14 Albuterol 2.5 Mg/3 Ml Nebu IH 2.5 mg Q8HRT SEGUNDO Administration Bisacodyl 10 mg 04/07/22 09:44 04/12/22 10:06 Bisacodyl 10 Mg Rect Supp DE 10 mg QDAY PRN Administration Constipation Dextrose 50 ml 04/06/22 17:54 Dextrose 50% In Water (25gm) 50 Ml Syringe IV Q30MIN PRN Hypoglycemia Protocol Docusate Sodium 100 mg 04/28/22 10:00 04/28/22 09:24 Docusate Sodium 100 Mg/10 Ml Oral Liqd FEEDTUBE 100 mg BID SEGUNDO Administration Famotidine 20 mg 04/06/22 10:00 04/28/22 09:24 Famotidine 20 Mg Tab FEEDTUBE 20 mg BID SEGUNDO Administration Fentanyl 50 mcg 04/04/22 15:56 04/23/22 17:00 Fentanyl 100 Mcg/2 Ml Inj IV 50 mcg Q2HR PRN Administration For CPOT of greater than 3 Heparin Sodium (Porcine) 5,000 unit 04/03/22 06:00 04/28/22 13:38 Heparin 5,000 Unit/1 Ml Vial SUB-Q 5,000 unit Q8HR SEGUNDO Administration Insulin Human Regular 0 units 04/06/22 18:00 04/28/22 13:39 Insulin Regular, Human 100 Units/1 Ml SUB-Q Not Given Q6H [facility] Protocol Magnesium Hydroxide 30 ml 04/02/22 23:53 Magnesium Hydroxide (Mom) Oral Liqd Udc PO Q4H PRN Constipation Metoprolol Tartrate 25 mg 04/16/22 18:00 04/28/22 12:25 Metoprolol Tartrate 25 Mg Tab FEEDTUBE 25 mg Q6HR SEGUNDO Administration Ondansetron HCl 4 mg 04/02/22 23:53 Ondansetron 4 Mg/2 Ml Inj IV Q8H PRN Nausea And Vomiting Polyethylene Glycol 17 gm 04/08/22 10:00 04/28/22 09:24 Polyethylene Glycol 3350 17 Gm Powder PO 17 gm QDAY SEGUNDO Administration Quetiapine Fumarate 50 mg 04/28/22 10:00 04/28/22 09:25 Quetiapine 25 Mg Tab FEEDTUBE 50 mg BID SEGUNDO Administration Senna 17.6 mg 04/28/22 10:00 04/28/22 09:24 Sennosides Oral Liqd 8.8 Mg/5 Ml Oral Liqd FEEDTUBE 17.6 mg Q12HR SEGUNDO Administration Sodium Chloride 10 ml 04/03/22 10:00 04/28/22 09:26 Sodium Chloride 0.9% 10 Ml Flush Syringe IV 10 ml BID SEGUNDO Administration Sodium Chloride 10 ml 04/02/22 23:53 Sodium Chloride 0.9% 10 Ml Flush Syringe IV PRN PRN LINE FLUSH Nutrition/Malnutrition Assess - Dietary Evaluation Nutrition/Malnutrition Findings: Nutrition Notes Start: 04/04/22 13:13 Freq: Status: Active Protocol: Document 04/27/22 11:53 COLLEEN (Rec: 04/27/22 12:21 COLLEEN [id number]) Nutrition Notes Initial or Follow up Reassessment Current Diagnosis Coronary Artery Disease, Decubitus(Pressure Ulcer), Sepsis,Respiratory Failure, Malnutrition Other Pertinent Diagnosis HCAP, HFpEF, ALS, Pleural Effusion, R-Lung Collapse, .. . Current Diet TF-Vital AF 1.2 Inderjit @ 50 ml/hr (since D 04/15). Labs/Tests 04/27: Cl 93.2, CO2 37, Crea < 0.2, Glu 114. Pertinent Medications 04/27: Nutritionally unremarkable. Height 5 ft 4.8 in Weight 46.8 kg [place] Body Weight (kg) 61.27 BMI 17.2 Weight change and time frame No body weight change reported in 3 weeks. Weight Status Underweight Subjective/Other Information RD consult for routine F/U on TF tolerance/continuation. TF continues as prescribed, and well tolerated, according to RN notes. Pt continues on Mechanical ventilation, O2 saturation @ 96%, according to Physical Assessment Histroy notes. Pt continues to present constipation, according to Physical Assessment Histroy notes. 3 failed attempts to wean Pt from Mechanical Ventilation, Pt is back to previous settings in [facility], according to RN notes. Pt is pending authorization for LTAC placement, according to Progress notes. Percent of energy/protein needs met: Prescribed TF-Vital AF 1.2 Inderjit @ 50 ml/hr provides for energy/protein needs (1,450 Kcal/91 g) during LOS, 98% Kcal; 100% AA. Burn Absent Trauma Absent GI Symptoms Constipation Difficulty In Swallowing,Chewing Food Allergy No Skin Integrity/Comment Sacral open wound. Current % PO Other Minimum of two criteria No #1 Nutrition Diagnosis Inadequate oral intake Diagnosis Progress(for reassessment Continues documentation) Is patient on ventilator? Yes Is Patient Ambulatory and/or Out of Bed No REE-([facility]-confined to bed) 4664.609 Calculation Used for Recommendations [facility] Additional Notes Protein: 1.2-2 g/Kg IBW; 73- 122 g/day. Fluids: 1 ml/Kcal, or as per MD. Nutrition Intervention Nutrition Support: Continue TF-Vital AF 1.2 Inderjit @ 50 ml/hr. Flush: 80 ml water Q 4 hr, or as per MD. Kcal 1,450 Protein (gm) 91 Carbohydrates (gm) 134 Fat (gm) 65 Fluid (mL) 980 Fiber (gm) 6 % RDI: 98% Kcal; 100% AA. Goal #1 Provide at least 75% of energy /protein needs through Enteral Feeding during LOS. Follow-Up By: 05/04/22 Additional Comments Continue monitoring TF tolerance and BM.
--- NOTE | 2022-04-22 14:33 | Progress Note ---
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 Protein calorie malnutrition Acute Bronchopneumonia HCAP Hypotension NSTEMI Hypernatremia Acute Metabolic Encephalopathy H/o Amyotrophic Lateral Sclerosis Nonverbal at Baseline Thrombocytopenia Protein Caloric Malnutrition Constipation (suspect transient and persistent atelectasis responsible for desaturations) - increased peep to 10 and reduced FiO2 to 50% (from 85%) - repeat ABG in am - soon after, failed my bedside SBT even with p-supp @ 20 cm H2O - continue mucomyst nebs for thick tenacious secretions - continue scheduled CPT - continue Seroquel for anxiolysis / delirium - continue care as below otherwise; - continue bronchodilators with pulmonary hygiene per RT - Daily SAT and SBT assessment as tolerated - continue to wean supplemental oxygen for target O2 sat's > 90% acutely - VAP bundle addressed - continue lung protective strategies - wean per pulmonary driven protocols otherwise - continue accuchecks with glycemic control per SSI (While critically ill target blood glucose of 140-180 mg/dL; avoid hypoglycemia) - sedation prn for target RASS 0 to -1 - avoid nephrotoxins, renally dose all medications - continue to avoid benzodiazepine's, reduce the possibility of delirium - AB's per ID rec's - prn analgesia per CPOT score - Maintenance of sleep-wake cycle, avoid delirium - continue enteral nutritional support at goal rate as tolerated - G.I. & VTE prophylaxis - PT/OT/ROM exercises - continue mobility protocols for pressure ulcer prophylaxis - Monitor hemodynamics closely - continue other care per attending / other consultants - discharge planning ongoing concurrently COVID SPECIFIC INTERVENTIONS - test pending .... Re-evaluate in am & prn CONDITION: CRITICAL PROGNOSIS: GUARDED CODE STATUS: FULL CODE The high probability of a clinically significant, sudden or life-threatening de terioration of the [respiratory, cardiovascular & neurologic] system(s) required my full and direct attention, intervention and personal management. The aggregate critical care time was [35] minutes without overlap. Time includes spent on; [x] Data Review and interpretation [x] Patient assessment and monitoring of vital signs [x] Documentation [x] Medication orders and management Subjective Date of service: 04/22/22 Principal diagnosis: Ac and ch hypercapnic and hypoxemic Resp Failure; ALS; HCAP; Sepsis; NSTEMI Interval history: Patient is seen today for: Acute and chronic hypercapnic and hypoxemic Respiratory Failure; ALS; HCAP; Sepsis; NSTEMI; AMS; Hypernatremia; Thrombocytopenia; Protein Caloric Malnutrition; Constipation Seen and examined at bedside; 24hour events reviewed; nursing and respiratory care staff consulted; no adverse overnight events reported to me; resting peacefully in bed; remains on MVS; s/p tracheostomy but still with intermittent de-saturations and FiO2 increased to 85% earlier but peep is at 8; Objective Vital Signs - 12hr 04/22/22 04/22/22 04/22/22 03:00 04:00 05:00 Temperature 98.2 F Pulse Rate 92 H 96 H 96 H Pulse Rate [ Anterior Right] Pulse Rate [ 91 H From Monitor] Respiratory 16 15 17 Rate Respiratory Rate [Anterior Right] Blood Pressure 121/62 125/68 125/68 O2 Sat by Pulse 94 92 90 Oximetry O2 Sat by Pulse Oximetry [ Assessment] 04/22/22 04/22/22 04/22/22 05:19 06:00 07:00 Temperature Pulse Rate 99 H 88 93 H Pulse Rate [ Anterior Right] Pulse Rate [ From Monitor] Respiratory 15 17 Rate Respiratory Rate [Anterior Right] Blood Pressure 115/68 114/74 135/79 O2 Sat by Pulse 94 96 Oximetry O2 Sat by Pulse Oximetry [ Assessment] 04/22/22 04/22/22 04/22/22 07:45 08:00 08:15 Temperature 97.8 F Pulse Rate 92 H 92 H Pulse Rate [ 86 Anterior Right] Pulse Rate [ From Monitor] Respiratory 25 H 18 Rate Respiratory 16 Rate [Anterior Right] Blood Pressure 131/82 127/80 O2 Sat by Pulse 90 84 93 Oximetry O2 Sat by Pulse 92 Oximetry [ Assessment] 04/22/22 04/22/22 04/22/22 09:00 10:00 11:00 Temperature Pulse Rate 90 82 98 H Pulse Rate [ Anterior Right] Pulse Rate [ From Monitor] Respiratory 18 15 14 Rate Respiratory Rate [Anterior Right] Blood Pressure 128/77 132/78 130/74 O2 Sat by Pulse 95 95 99 Oximetry O2 Sat by Pulse Oximetry [ Assessment] 04/22/22 04/22/22 04/22/22 11:02 12:00 13:17 Temperature 98 F Pulse Rate 99 H 110 H 86 Pulse Rate [ Anterior Right] Pulse Rate [ From Monitor] Respiratory 15 Rate Respiratory Rate [Anterior Right] Blood Pressure 130/74 134/85 113/70 O2 Sat by Pulse 99 99 Oximetry O2 Sat by Pulse Oximetry [ Assessment] Constitutional: alert, appears uncomfortable, other (orally intubated in bed with mildly increased respiratory effort at rest) Eyes: non-icteric ENT: oropharynx moist, other (+ midline tracheostomy) Neck: supple, no lymphadenopathy, no JVD, other (RIJ CVL) Effort: mildly labored Ascultation: Bilateral: diminished breath sounds (base), rhonchi (basilar predominant) Percussion: Bilateral: not dull Cardiovascular: regular rate and rhythm, other (S1,S2) Gastrointestinal: normoactive bowel sounds, soft, non-tender, non-distended Integumentary: normal Extremities: no cyanosis, no edema, pink and warm, pulses normal Neurologic: pupils equal and round, other (functional quadriplegia) Psychiatric: anxious, other CBC and BMP: 04/22/22 05:03 04/22/22 05:03 ABG, PT/INR, D-dimer: ABG ABG pH 7.411 pH Units (7.350-7.450) 04/22/22 08:34 ABG pCO2 78.1 mm Hg 04/22/22 08:34 ABG pO2 54.1 mm Hg (80.0-90.0) L 04/22/22 08:34 ABG O2 Saturation 92.1 % (95.0-99.0) L 04/22/22 08:34 PT/INR, D-dimer PT 13.6 Sec. (12.2-14.9) 04/13/22 04:30 INR 0.94 (0.87-1.13) 04/13/22 04:30 Abnormal lab findings: Abnormal Labs 04/02/22 04/02/22 04/02/22 19:39 19:39 19:39 WBC 14.3 H RBC Hgb Hct MCV 96 H Plt Count 104 L Lymph % (Auto) Evangeline % (Auto) Lymph # (Auto) Evangeline # (Auto) Seg Neutrophils % Seg Neuts % (Manual) 94.0 H Lymphocytes % (Manual) 1.0 L Seg Neutrophils # Seg Neutrophils # Man 13.4 H Lymphocytes # (Manual) 0.1 L PT 15.9 H INR 1.14 H ABG pH ABG pO2 ABG HCO3 ABG O2 Saturation ABG Base Excess ABG Hemoglobin Oxyhemoglobin Sodium 151 H Potassium Chloride Carbon Dioxide BUN Creatinine 0.5 L Glucose POC Glucose Calcium 8.2 L Phosphorus Magnesium 1.60 L Total Creatine Kinase CK-MB (CK-2) Rel Index Troponin T 0.048 H C-Reactive Protein Total Protein 4.6 L Albumin 2.7 L LDL Cholesterol Direct 27 L Urine WBC (Auto) 04/02/22 04/03/22 04/03/22 19:42 05:14 06:30 WBC RBC Hgb Hct MCV Plt Count Lymph % (Auto) Evangeline % (Auto) Lymph # (Auto) Evangeline # (Auto) Seg Neutrophils % Seg Neuts % (Manual) Lymphocytes % (Manual) Seg Neutrophils # Seg Neutrophils # Man Lymphocytes # (Manual) PT INR ABG pH 7.471 H 7.496 H ABG pO2 47.8 L 91.0 H ABG HCO3 30.6 H ABG O2 Saturation 94.4 L ABG Base Excess 6.2 H ABG Hemoglobin 11.0 L 12.8 L Oxyhemoglobin 93.1 L Sodium 149 H Potassium 3.4 L Chloride Carbon Dioxide BUN Creatinine 0.4 L Glucose POC Glucose Calcium Phosphorus Magnesium Total Creatine Kinase CK-MB (CK-2) Rel Index Troponin T C-Reactive Protein Total Protein Albumin LDL Cholesterol Direct Urine WBC (Auto) 04/04/22 04/04/22 04/04/22 04:18 04:18 05:50 WBC 11.8 H RBC Hgb Hct MCV Plt Count 132 L Lymph % (Auto) Evangeline % (Auto) Lymph # (Auto) Evangeline # (Auto) Seg Neutrophils % Seg Neuts % (Manual) Lymphocytes % (Manual) Seg Neutrophils # Seg Neutrophils # Man Lymphocytes # (Manual) PT INR ABG pH 7.517 H ABG pO2 115.5 H ABG HCO3 29.9 H ABG O2 Saturation ABG Base Excess 6.7 H ABG Hemoglobin 12.3 L Oxyhemoglobin Sodium Potassium 3.5 L Chloride Carbon Dioxide 31 H BUN Creatinine 0.3 L Glucose 153 H POC Glucose Calcium Phosphorus 1.40 L Magnesium 1.50 L Total Creatine Kinase CK-MB (CK-2) Rel Index Troponin T C-Reactive Protein 31.60 H Total Protein Albumin LDL Cholesterol Direct Urine WBC (Auto) 04/05/22 04/05/22 04/05/22 02:50 05:25 11:28 WBC RBC Hgb Hct MCV Plt Count Lymph % (Auto) Evangeline % (Auto) Lymph # (Auto) Evangeline # (Auto) Seg Neutrophils % Seg Neuts % (Manual) Lymphocytes % (Manual) Seg Neutrophils # Seg Neutrophils # Man Lymphocytes # (Manual) PT INR ABG pH 7.455 H ABG pO2 50.7 L ABG HCO3 30.5 H ABG O2 Saturation 89.4 L ABG Base Excess 5.9 H ABG Hemoglobin 11.8 L Oxyhemoglobin 88.2 L Sodium Potassium Chloride Carbon Dioxide 32 H BUN Creatinine 0.2 L Glucose 110 H POC Glucose 124 H Calcium 7.9 L Phosphorus Magnesium Total Creatine Kinase CK-MB (CK-2) Rel Index Troponin T C-Reactive Protein Total Protein Albumin LDL Cholesterol Direct Urine WBC (Auto) 04/05/22 04/05/22 04/06/22 17:45 Unknown 04:00 WBC RBC 3.55 L Hgb 11.1 L 11.5 L Hct 33.2 L 35.1 L MCV Plt Count 113 L 114 L Lymph % (Auto) Evangeline % (Auto) Lymph # (Auto) Evangeline # (Auto) Seg Neutrophils % Seg Neuts % (Manual) Lymphocytes % (Manual) Seg Neutrophils # Seg Neutrophils # Man Lymphocytes # (Manual) PT INR ABG pH ABG pO2 ABG HCO3 ABG O2 Saturation ABG Base Excess ABG Hemoglobin Oxyhemoglobin Sodium Potassium Chloride Carbon Dioxide BUN Creatinine Glucose POC Glucose Calcium Phosphorus Magnesium Total Creatine Kinase CK-MB (CK-2) Rel Index Troponin T C-Reactive Protein Total Protein Albumin LDL Cholesterol Direct Urine WBC (Auto) 8.0 H 04/06/22 04/06/22 04/07/22 04:00 08:30 00:04 WBC RBC Hgb Hct MCV Plt Count Lymph % (Auto) Evangeline % (Auto) Lymph # (Auto) Evangeline # (Auto) Seg Neutrophils % Seg Neuts % (Manual) Lymphocytes % (Manual) Seg Neutrophils # Seg Neutrophils # Man Lymphocytes # (Manual) PT INR ABG pH ABG pO2 60.8 L ABG HCO3 30.5 H ABG O2 Saturation 93.3 L ABG Base Excess 4.9 H ABG Hemoglobin 12.4 L Oxyhemoglobin 92.1 L Sodium Potassium 3.0 L Chloride Carbon Dioxide BUN Creatinine < 0.2 L Glucose 130 H POC Glucose 117 H Calcium 8.1 L Phosphorus Magnesium Total Creatine Kinase CK-MB (CK-2) Rel Index Troponin T C-Reactive Protein Total Protein Albumin LDL Cholesterol Direct Urine WBC (Auto) 04/07/22 04/07/22 04/07/22 03:51 03:51 03:51 WBC 14.6 H RBC 3.57 L Hgb 11.1 L Hct 33.2 L MCV Plt Count 118 L Lymph % (Auto) 4.3 L Evangeline % (Auto) 8.8 H Lymph # (Auto) 0.6 L Evangeline # (Auto) 1.3 H Seg Neutrophils % 86.6 H Seg Neuts % (Manual) Lymphocytes % (Manual) Seg Neutrophils # 12.7 H Seg Neutrophils # Man Lymphocytes # (Manual) PT 15.2 H INR ABG pH ABG pO2 ABG HCO3 ABG O2 Saturation ABG Base Excess ABG Hemoglobin Oxyhemoglobin Sodium 133 L Potassium Chloride 96.0 L Carbon Dioxide 31 H BUN Creatinine 0.2 L Glucose 130 H POC Glucose Calcium 8.0 L Phosphorus Magnesium Total Creatine Kinase CK-MB (CK-2) Rel Index Troponin T C-Reactive Protein Total Protein Albumin LDL Cholesterol Direct Urine WBC (Auto) 04/07/22 04/07/22 04/08/22 04:25 09:10 04:49 WBC 16.1 H RBC 3.54 L Hgb 10.9 L Hct 33.3 L MCV Plt Count Lymph % (Auto) Evangeline % (Auto) Lymph # (Auto) Evangeline # (Auto) Seg Neutrophils % Seg Neuts % (Manual) Lymphocytes % (Manual) Seg Neutrophils # Seg Neutrophils # Man Lymphocytes # (Manual) PT INR ABG pH ABG pO2 71.0 L 63.4 L ABG HCO3 31.5 H 40.0 H ABG O2 Saturation 94.9 L ABG Base Excess 5.9 H 13.6 H ABG Hemoglobin 11.3 L 9.0 L Oxyhemoglobin 93.6 L Sodium Potassium Chloride Carbon Dioxide BUN Creatinine Glucose POC Glucose Calcium Phosphorus Magnesium Total Creatine Kinase CK-MB (CK-2) Rel Index Troponin T C-Reactive Protein Total Protein Albumin LDL Cholesterol Direct Urine WBC (Auto) 04/08/22 04/08/22 04/08/22 04:49 09:53 10:25 WBC RBC Hgb Hct MCV Plt Count Lymph % (Auto) Evangeline % (Auto) Lymph # (Auto) Evangeline # (Auto) Seg Neutrophils % Seg Neuts % (Manual) Lymphocytes % (Manual) Seg Neutrophils # Seg Neutrophils # Man Lymphocytes # (Manual) PT INR ABG pH ABG pO2 ABG HCO3 34.7 H ABG O2 Saturation ABG Base Excess 7.9 H ABG Hemoglobin 11.0 L Oxyhemoglobin Sodium 136 L Potassium Chloride 97.7 L Carbon Dioxide 33 H BUN Creatinine 0.2 L Glucose 155 H POC Glucose Calcium Phosphorus Magnesium Total Creatine Kinase CK-MB (CK-2) Rel Index Troponin T 0.030 H C-Reactive Protein Total Protein Albumin LDL Cholesterol Direct Urine WBC (Auto) 04/08/22 04/08/22 04/08/22 11:19 17:47 18:06 WBC RBC Hgb Hct MCV Plt Count Lymph % (Auto) Ev[place]eline % (Auto) Lymph # (Auto) Evangeline # (Auto) Seg Neutrophils % Seg Neuts % (Manual) Lymphocytes % (Manual) Seg Neutrophils # Seg Neutrophils # Man Lymphocytes # (Manual) PT INR ABG pH ABG pO2 ABG HCO3 ABG O2 Saturation ABG Base Excess ABG Hemoglobin Oxyhemoglobin Sodium Potassium Chloride Carbon Dioxide BUN Creatinine Glucose POC Glucose 121 H Calcium Phosphorus Magnesium Total Creatine Kinase 31 L 46 L CK-MB (CK-2) Rel Index 6.4 H 5.6 H Troponin T 0.030 H 0.031 H C-Reactive Protein Total Protein Albumin LDL Cholesterol Direct Urine WBC (Auto) 04/09/22 04/09/22 04/09/22 04:35 04:35 11:24 WBC 11.5 H RBC 3.16 L Hgb 9.9 L Hct 29.4 L MCV Plt Count 131 L Lymph % (Auto) Evangeline % (Auto) Lymph # (Auto) Evangeline # (Auto) Seg Neutrophils % Seg Neuts % (Manual) Lymphocytes % (Manual) Seg Neutrophils # Seg Neutrophils # Man Lymphocytes # (Manual) PT INR ABG pH ABG pO2 ABG HCO3 ABG O2 Saturation ABG Base Excess ABG Hemoglobin Oxyhemoglobin Sodium Potassium Chloride 97.1 L Carbon Dioxide 35 H BUN Creatinine < 0.2 L Glucose 145 H POC Glucose 147 H Calcium Phosphorus Magnesium Total Creatine Kinase CK-MB (CK-2) Rel Index Troponin T C-Reactive Protein Total Protein Albumin LDL Cholesterol Direct Urine WBC (Auto) 04/09/22 04/09/22 04/09/22 13:00 17:32 23:48 WBC RBC Hgb Hct MCV Plt Count Lymph % (Auto) Evangeline % (Auto) Lymph # (Auto) Evangeline # (Auto) Seg Neutrophils % Seg Neuts % (Manual) Lymphocytes % (Manual) Seg Neutrophils # Seg Neutrophils # Man Lymphocytes # (Manual) PT INR ABG pH ABG pO2 66.6 L ABG HCO3 38.2 H ABG O2 Saturation 94.4 L ABG Base Excess 10.7 H ABG Hemoglobin 10.7 L Oxyhemoglobin 92.8 L Sodium Potassium Chloride Carbon Dioxide BUN Creatinine Glucose POC Glucose 143 H 114 H Calcium Phosphorus Magnesium Total Creatine Kinase CK-MB (CK-2) Rel Index Troponin T C-Reactive Protein Total Protein Albumin LDL Cholesterol Direct Urine WBC (Auto) 04/10/22 04/10/22 04/10/22 04:48 04:48 05:34 WBC RBC 2.91 L Hgb 9.1 L Hct 27.7 L MCV 95 H Plt Count Lymph % (Auto) Evangeline % (Auto) Lymph # (Auto) Evangeline # (Auto) Seg Neutrophils % Seg Neuts % (Manual) Lymphocytes % (Manual) Seg Neutrophils # Seg Neutrophils # Man Lymphocytes # (Manual) PT INR ABG pH ABG pO2 ABG HCO3 ABG O2 Saturation ABG Base Excess ABG Hemoglobin Oxyhemoglobin Sodium Potassium Chloride 95.7 L Carbon Dioxide 38 H BUN Creatinine < 0.2 L Glucose 118 H POC Glucose 127 H Calcium Phosphorus Magnesium Total Creatine Kinase CK-MB (CK-2) Rel Index Troponin T C-Reactive Protein Total Protein Albumin LDL Cholesterol Direct Urine WBC (Auto) 04/10/22 04/11/22 04/11/22 23:10 04:15 04:15 WBC 17.2 H RBC 2.98 L Hgb 9.2 L Hct 27.9 L MCV Plt Count Lymph % (Auto) Evangeline % (Auto) Lymph # (Auto) Evangeline # (Auto) Seg Neutrophils % Seg Neuts % (Manual) Lymphocytes % (Manual) Seg Neutrophils # Seg Neutrophils # Man Lymphocytes # (Manual) PT INR ABG pH ABG pO2 ABG HCO3 ABG O2 Saturation ABG Base Excess ABG Hemoglobin Oxyhemoglobin Sodium Potassium Chloride 96.1 L Carbon Dioxide 35 H BUN Creatinine < 0.2 L Glucose 138 H POC Glucose 106 H Calcium 8.3 L Phosphorus Magnesium Total Creatine Kinase CK-MB (CK-2) Rel Index Troponin T C-Reactive Protein Total Protein Albumin LDL Cholesterol Direct Urine WBC (Auto) 04/11/22 04/11/22 04/11/22 05:31 13:18 16:20 WBC RBC Hgb Hct MCV Plt Count Lymph % (Auto) Evangeline % (Auto) Lymph # (Auto) Evangeline # (Auto) Seg Neutrophils % Seg Neuts % (Manual) Lymphocytes % (Manual) Seg Neutrophils # Seg Neutrophils # Man Lymphocytes # (Manual) PT INR ABG pH ABG pO2 57.8 L ABG HCO3 40.5 H ABG O2 Saturation 90.6 L ABG Base Excess 12.6 H ABG Hemoglobin 10.5 L Oxyhemoglobin 89.0 L Sodium Potassium Chloride Carbon Dioxide BUN Creatinine Glucose POC Glucose 129 H 132 H Calcium Phosphorus Magnesium Total Creatine Kinase CK-MB (CK-2) Rel Index Troponin T C-Reactive Protein Total Protein Albumin LDL Cholesterol Direct Urine WBC (Auto) 04/11/22 04/11/22 04/12/22 17:29 23:17 04:00 WBC 17.4 H RBC 2.96 L Hgb 9.0 L Hct 28.0 L MCV 95 H Plt Count Lymph % (Auto) Evangeline % (Auto) Lymph # (Auto) Evangeline # (Auto) Seg Neutrophils % Seg Neuts % (Manual) Lymphocytes % (Manual) Seg Neutrophils # Seg Neutrophils # Man Lymphocytes # (Manual) PT INR ABG pH ABG pO2 ABG HCO3 ABG O2 Saturation ABG Base Excess ABG Hemoglobin Oxyhemoglobin Sodium Potassium Chloride Carbon Dioxide BUN Creatinine Glucose POC Glucose 125 H 151 H Calcium Phosphorus Magnesium Total Creatine Kinase CK-MB (CK-2) Rel Index Troponin T C-Reactive Protein Total Protein Albumin LDL Cholesterol Direct Urine WBC (Auto) 04/12/22 04/12/22 04/12/22 04:00 17:03 23:39 WBC RBC Hgb Hct MCV Plt Count Lymph % (Auto) Evangeline % (Auto) Lymph # (Auto) Evangeline # (Auto) Seg Neutrophils % Seg Neuts % (Manual) Lymphocytes % (Manual) Seg Neutrophils # Seg Neutrophils # Man Lymphocytes # (Manual) PT INR ABG pH ABG pO2 ABG HCO3 ABG O2 Saturation ABG Base Excess ABG Hemoglobin Oxyhemoglobin Sodium Potassium Chloride 97.4 L Carbon Dioxide 37 H BUN Creatinine < 0.2 L Glucose 127 H POC Glucose 106 H 107 H Calcium Phosphorus Magnesium Total Creatine Kinase CK-MB (CK-2) Rel Index Troponin T C-Reactive Protein Total Protein Albumin LDL Cholesterol Direct Urine WBC (Auto) 04/13/22 04/13/22 04/13/22 04:30 04:30 17:39 WBC 14.1 H RBC 2.66 L Hgb 8.4 L Hct 25.5 L MCV 96 H Plt Count Lymph % (Auto) Evangeline % (Auto) Lymph # (Auto) Evangeline # (Auto) Seg Neutrophils % Seg Neuts % (Manual) Lymphocytes % (Manual) Seg Neutrophils # Seg Neutrophils # Man Lymphocytes # (Manual) PT INR ABG pH ABG pO2 ABG HCO3 ABG O2 Saturation ABG Base Excess ABG Hemoglobin Oxyhemoglobin Sodium Potassium Chloride 93.9 L Carbon Dioxide 39 H BUN Creatinine < 0.2 L Glucose POC Glucose 134 H Calcium Phosphorus 1.90 L Magnesium Total Creatine Kinase CK-MB (CK-2) Rel Index Troponin T C-Reactive Protein Total Protein Albumin LDL Cholesterol Direct Urine WBC (Auto) 04/14/22 04/14/22 04/14/22 05:03 05:03 09:10 WBC 15.6 H RBC 3.02 L Hgb 9.3 L Hct 28.8 L MCV 95 H Plt Count Lymph % (Auto) Evangeline % (Auto) Lymph # (Auto) Evangeline # (Auto) Seg Neutrophils % Seg Neuts % (Manual) Lymphocytes % (Manual) Seg Neutrophils # Seg Neutrophils # Man Lymphocytes # (Manual) PT INR ABG pH ABG pO2 66.9 L ABG HCO3 44.5 H ABG O2 Saturation ABG Base Excess 17.2 H ABG Hemoglobin 8.1 L Oxyhemoglobin 94.8 L Sodium Potassium Chloride 93.8 L Carbon Dioxide 42 H* BUN Creatinine < 0.2 L Glucose 117 H POC Glucose Calcium Phosphorus Magnesium Total Creatine Kinase CK-MB (CK-2) Rel Index Troponin T C-Reactive Protein Total Protein Albumin LDL Cholesterol Direct Urine WBC (Auto) 04/15/22 04/15/22 04/16/22 04:44 04:44 04:16 WBC 13.0 H 12.6 H RBC 3.19 L 3.09 L Hgb 9.6 L 9.5 L Hct 30.2 L 29.1 L MCV 95 H Plt Count 456 H Lymph % (Auto) Ev[place]eline % (Auto) Lymph # (Auto) Evangeline # (Auto) Seg Neutrophils % Seg Neuts % (Manual) Lymphocytes % (Manual) Seg Neutrophils # Seg Neutrophils # Man Lymphocytes # (Manual) PT INR ABG pH ABG pO2 ABG HCO3 ABG O2 Saturation ABG Base Excess ABG Hemoglobin Oxyhemoglobin Sodium Potassium Chloride 95.5 L Carbon Dioxide 37 H BUN Creatinine < 0.2 L Glucose POC Glucose Calcium Phosphorus Magnesium Total Creatine Kinase CK-MB (CK-2) Rel Index Troponin T C-Reactive Protein Total Protein Albumin LDL Cholesterol Direct Urine WBC (Auto) 04/16/22 04/16/22 04/16/22 04:16 05:00 14:00 WBC RBC Hgb Hct MCV Plt Count Lymph % (Auto) Ev[place]eline % (Auto) Lymph # (Auto) Evangeline # (Auto) Seg Neutrophils % Seg Neuts % (Manual) Lymphocytes % (Manual) Seg Neutrophils # Seg Neutrophils # Man Lymphocytes # (Manual) PT INR ABG pH 7.324 L ABG pO2 55.6 L ABG HCO3 45.3 H ABG O2 Saturation 87.1 L ABG Base Excess 16.6 H ABG Hemoglobin 8.6 L Oxyhemoglobin 85.7 L Sodium Potassium Chloride 97.6 L Carbon Dioxide 36 H BUN Creatinine < 0.2 L Glucose 109 H POC Glucose 120 H Calcium Phosphorus Magnesium Total Creatine Kinase CK-MB (CK-2) Rel Index Troponin T C-Reactive Protein Total Protein Albumin LDL Cholesterol Direct Urine WBC (Auto) 04/17/22 04/17/22 04/17/22 04:36 04:36 04:57 WBC 14.4 H RBC 3.08 L Hgb 9.4 L Hct 29.0 L MCV Plt Count Lymph % (Auto) Evangeline % (Auto) Lymph # (Auto) Evangeline # (Auto) Seg Neutrophils % Seg Neuts % (Manual) Lymphocytes % (Manual) Seg Neutrophils # Seg Neutrophils # Man Lymphocytes # (Manual) PT INR ABG pH ABG pO2 ABG HCO3 ABG O2 Saturation ABG Base Excess ABG Hemoglobin Oxyhemoglobin Sodium Potassium Chloride 95.9 L Carbon Dioxide 39 H BUN Creatinine < 0.2 L Glucose 140 H POC Glucose 137 H Calcium 8.3 L Phosphorus Magnesium Total Creatine Kinase CK-MB (CK-2) Rel Index Troponin T C-Reactive Protein Total Protein Albumin LDL Cholesterol Direct Urine WBC (Auto) 04/17/22 04/17/22 04/18/22 09:15 18:01 04:20 WBC 11.2 H RBC 3.00 L Hgb 9.3 L Hct 28.6 L MCV 95 H Plt Count Lymph % (Auto) Evangeline % (Auto) Lymph # (Auto) Evangeline # (Auto) Seg Neutrophils % Seg Neuts % (Manual) Lymphocytes % (Manual) Seg Neutrophils # Seg Neutrophils # Man Lymphocytes # (Manual) PT INR ABG pH 7.345 L ABG pO2 ABG HCO3 48.2 H ABG O2 Saturation ABG Base Excess 19.2 H ABG Hemoglobin 9.7 L Oxyhemoglobin Sodium Potassium Chloride Carbon Dioxide BUN Creatinine Glucose POC Glucose 129 H Calcium Phosphorus Magnesium Total Creatine Kinase CK-MB (CK-2) Rel Index Troponin T C-Reactive Protein Total Protein Albumin LDL Cholesterol Direct Urine WBC (Auto) 04/18/22 04/18/22 04/18/22 04:20 17:35 23:50 WBC RBC Hgb Hct MCV Plt Count Lymph % (Auto) [place]eline % (Auto) Lymph # (Auto) Evangeline # (Auto) Seg Neutrophils % Seg Neuts % (Manual) Lymphocytes % (Manual) Seg Neutrophils # Seg Neutrophils # Man Lymphocytes # (Manual) PT INR ABG pH ABG pO2 ABG HCO3 ABG O2 Saturation ABG Base Excess ABG Hemoglobin Oxyhemoglobin Sodium Potassium Chloride 96.8 L Carbon Dioxide 43 H* BUN 22 H Creatinine < 0.2 L Glucose 137 H POC Glucose 128 H 123 H Calcium 8.2 L Phosphorus Magnesium Total Creatine Kinase CK-MB (CK-2) Rel Index Troponin T C-Reactive Protein Total Protein Albumin LDL Cholesterol Direct Urine WBC (Auto) 04/19/22 04/19/22 04/19/22 04:08 04:08 08:50 WBC 16.8 H RBC 3.18 L Hgb 9.8 L Hct 30.1 L MCV 95 H Plt Count Lymph % (Auto) [place]eline % (Auto) Lymph # (Auto) Evangeline # (Auto) Seg Neutrophils % Seg Neuts % (Manual) Lymphocytes % (Manual) Seg Neutrophils # Seg Neutrophils # Man Lymphocytes # (Manual) PT INR ABG pH ABG pO2 56.0 L ABG HCO3 47.1 H ABG O2 Saturation 93.3 L ABG Base Excess 20.1 H ABG Hemoglobin 8.0 L Oxyhemoglobin 91.8 L Sodium Potassium Chloride 96.2 L Carbon Dioxide 40 H BUN 24 H Creatinine < 0.2 L Glucose 125 H POC Glucose Calcium 8.3 L Phosphorus Magnesium Total Creatine Kinase CK-MB (CK-2) Rel Index Troponin T C-Reactive Protein Total Protein Albumin LDL Cholesterol Direct Urine WBC (Auto) 04/19/22 04/20/22 04/20/22 12:02 00:40 04:49 WBC 14.7 H RBC 3.36 L Hgb 10.3 L Hct 32.0 L MCV 95 H Plt Count Lymph % (Auto) Ev[place]eline % (Auto) Lymph # (Auto) Evangeline # (Auto) Seg Neutrophils % Seg Neuts % (Manual) Lymphocytes % (Manual) Seg Neutrophils # Seg Neutrophils # Man Lymphocytes # (Manual) PT INR ABG pH ABG pO2 ABG HCO3 ABG O2 Saturation ABG Base Excess ABG Hemoglobin Oxyhemoglobin Sodium Potassium Chloride Carbon Dioxide BUN Creatinine Glucose POC Glucose 124 H 140 H Calcium Phosphorus Magnesium Total Creatine Kinase CK-MB (CK-2) Rel Index Troponin T C-Reactive Protein Total Protein Albumin LDL Cholesterol Direct Urine WBC (Auto) 04/20/22 04/20/22 04/21/22 05:36 11:40 04:05 WBC RBC Hgb Hct MCV Plt Count Lymph % (Auto) [place]eline % (Auto) Lymph # (Auto) Evangeline # (Auto) Seg Neutrophils % Seg Neuts % (Manual) Lymphocytes % (Manual) Seg Neutrophils # Seg Neutrophils # Man Lymphocytes # (Manual) PT INR ABG pH ABG pO2 ABG HCO3 ABG O2 Saturation ABG Base Excess ABG Hemoglobin Oxyhemoglobin Sodium Potassium Chloride 93.4 L Carbon Dioxide 40 H BUN 25 H Creatinine < 0.2 L Glucose 122 H POC Glucose 125 H 128 H Calcium Phosphorus Magnesium Total Creatine Kinase CK-MB (CK-2) Rel Index Troponin T C-Reactive Protein Total Protein Albumin LDL Cholesterol Direct Urine WBC (Auto) 04/21/22 04/22/22 04/22/22 10:31 05:03 05:03 WBC 12.6 H 12.7 H RBC 2.83 L 2.96 L Hgb 8.6 L 9.0 L Hct 26.9 L 28.0 L MCV 95 H 95 H Plt Count Lymph % (Auto) Evangeline % (Auto) Lymph # (Auto) Evangeline # (Auto) Seg Neutrophils % Seg Neuts % (Manual) Lymphocytes % (Manual) Seg Neutrophils # Seg Neutrophils # Man Lymphocytes # (Manual) PT INR ABG pH ABG pO2 ABG HCO3 ABG O2 Saturation ABG Base Excess ABG Hemoglobin Oxyhemoglobin Sodium Potassium Chloride 93.9 L Carbon Dioxide 43 H* BUN 23 H Creatinine < 0.2 L Glucose 137 H POC Glucose Calcium Phosphorus Magnesium Total Creatine Kinase CK-MB (CK-2) Rel Index Troponin T C-Reactive Protein Total Protein Albumin LDL Cholesterol Direct Urine WBC (Auto) 04/22/22 08:34 WBC RBC Hgb Hct MCV Plt Count Lymph % (Auto) Evangeline % (Auto) Lymph # (Auto) Evangeline # (Auto) Seg Neutrophils % Seg Neuts % (Manual) Lymphocytes % (Manual) Seg Neutrophils # Seg Neutrophils # Man Lymphocytes # (Manual) PT INR ABG pH ABG pO2 54.1 L ABG HCO3 48.5 H ABG O2 Saturation 92.1 L ABG Base Excess 20.9 H ABG Hemoglobin 9.0 L Oxyhemoglobin 90.6 L Sodium Potassium Chloride Carbon Dioxide BUN Creatinine Glucose POC Glucose Calcium Phosphorus Magnesium Total Creatine Kinase CK-MB (CK-2) Rel Index Troponin T C-Reactive Protein Total Protein Albumin LDL Cholesterol Direct Urine WBC (Auto) Allied health notes reviewed: nursing
[2022-04-23] MEDS: ALBUTEROL 2.5 MG/3 ML NEBU IH SCH ×3 (01:07→16:10)
[2022-04-23] MEDS: ACETYLCYSTEINE 20% 200 MG/1 ML *FOR INHALATION USE INHALATION SCH ×3 (01:08→16:11)
[2022-04-23] MEDS: INSULIN REGULAR, HUMAN 100 UNITS/1 ML SUB-Q SCH ×4 (01:37→21:15)
[2022-04-23] MEDS: METOPROLOL TARTRATE 25 MG TAB FEEDTUBE SCH ×4 (01:37→17:36)
[2022-04-23] MEDS: HEPARIN 5,000 UNIT/1 ML VIAL SUB-Q SCH ×3 (06:22→22:20)
[2022-04-23] MEDS: DOCUSATE SODIUM 100 MG/10 ML ORAL LIQD PO SCH ×2 (09:10→22:20)
[2022-04-23] MEDS: FAMOTIDINE 20 MG TAB FEEDTUBE SCH ×2 (09:10→22:21)
[2022-04-23] MEDS: QUEtiapine 25 MG TAB PO SCH ×2 (09:10→22:21)
[2022-04-23] MEDS: POLYETHYLENE GLYCOL 3350 17 GM POWDER PO SCH (09:10)
[2022-04-23] MEDS: SENNOSIDES ORAL LIQD 8.8 MG/5 ML ORAL LIQD PO SCH ×2 (09:11→22:20)
[2022-04-23 10:12] LABS: ABG Base Excess 20.8 mmol/L (-2.0-3.0); ABG Methemoglobin 0.3 % (0.0-1.5); ABG Oxygen Saturation 90.9 % (95.0-99.0); ABG PCO2 86.8 mm Hg; ABG PH 7.369 pH Units (7.350-7.450); ABG PO2 56.8 mm Hg (80.0-90.0)
--- NOTE | 2022-04-23 13:25 | Progress Note ---
Assessment and Plan - Patient Problems (1) Respiratory failure Current Visit: Yes Status: Acute Plan to address problem: Patient presented with acute respiratory failure, with chest x-ray showing total whiteout of the right lung, due to acute pneumonia, large right pleural effusion and collapse of the right lung. Continue supportive management, antibiotics. (2) Acute coronary syndrome Current Visit: Yes Status: Acute Plan to address problem: The patient's interval ECGs while in the ICU showed dynamic changes of anterior wall ischemia or infarction. Patient has severe comorbidities including progressive total paralysis of ALS, and intercurrent respiratory failure with large right pleural effusion and total collapse of the right lung. Currently assessed as a poor candidate for aggressive cardiac management due to the multiple severe acute and chronic comorbidities. He has been placed on conservative, empiric coronary artery disease medical therapy. A trach PEG procedure has been completed, discharge planning for assisted facility placement is in progress. Subjective Date of service: 04/23/22 Principal diagnosis: Ac and ch hypercapnic and hypoxemic Resp Failure; ALS; HCAP; Sepsis; NSTEMI Interval history: Patient is sedated, on the vent via tracheostomy. Stable sinus rhythm on borematic operator and stable hemodynamics. No new cardiac events reported. Objective Vital Signs Temp Pulse Pulse Pulse Pulse Resp Resp 04/23/22 13:08 95 H 04/23/22 11:30 97 H 04/23/22 10:00 90 14 04/23/22 09:00 87 14 04/23/22 08:10 20 04/23/22 08:00 98.8 F 83 15 04/23/22 07:44 82 87 14 04/23/22 07:00 73 14 04/23/22 06:21 96 H 04/23/22 06:00 97 H 15 04/23/22 05:00 95 H 04/23/22 04:00 99.0 F 101 H 98 H 14 04/23/22 03:00 95 H 15 04/23/22 02:00 89 04/23/22 01:37 105 H 04/23/22 01:00 106 H 14 04/23/22 00:00 99.8 F H 106 H 99 H 100 H 14 04/22/22 23:41 99.8 F H 04/22/22 23:00 103 H 15 04/22/22 22:00 102 H 04/22/22 21:55 104 H 14 04/22/22 21:00 103 H 14 04/22/22 20:12 105 H 04/22/22 20:00 100.6 F H 105 H 105 H 17 04/22/22 19:39 100.6 F H 04/22/22 19:03 86 04/22/22 19:00 105 H 14 04/22/22 18:00 93 H 15 04/22/22 17:00 95 H 16 04/22/22 16:10 18 04/22/22 16:00 98.3 F 96 H 15 04/22/22 15:14 95 H 97 H 04/22/22 15:00 99 H 15 04/22/22 14:00 83 14 Resp BP Pulse Ox Pulse Ox 04/23/22 13:08 122/75 04/23/22 11:30 123/73 98 04/23/22 10:00 104/58 97 04/23/22 09:00 117/71 98 04/23/22 08:10 96 04/23/22 08:00 106/66 98 04/23/22 07:44 116/73 98 98 04/23/22 07:00 122/71 93 04/23/22 06:21 125/72 04/23/22 06:00 125/72 96 04/23/22 05:00 118/74 94 04/23/22 04:00 117/74 92 04/23/22 03:00 120/72 89 04/23/22 02:00 107/65 97 04/23/22 01:37 112/70 04/23/22 01:00 117/68 97 04/23/22 00:00 16 115/66 96 92 04/22/22 23:41 04/22/22 23:00 110/65 89 04/22/22 22:00 117/67 97 04/22/22 21:55 112/61 97 04/22/22 21:00 118/60 98 04/22/22 20:12 134/82 92 04/22/22 20:00 134/82 83 L 04/22/22 19:39 04/22/22 19:03 113/63 04/22/22 19:00 135/80 94 04/22/22 18:00 135/78 88 04/22/22 17:00 122/66 91 04/22/22 16:10 96 06/16/22 16:00 110/67 95 04/22/22 15:14 14 107/63 100 100 04/22/22 15:00 107/63 100 04/22/22 14:00 100/59 100 - Physical Examination General: Other (On the vent via tracheostomy) HEENT: Positive: PERRL, Normocephaly, Other (ET-tube in place) Neck: Positive: neck supple, trachea midline (intubated). Negative: JVD/HJR Cardiac: Positive: Reg Rate and Rhythm Lungs: Positive: Decreased Breath Sounds Neuro: Positive: Weakness (Generalized myopathy, patient with ALS), Other (On the vent via tracheostomy) Abdomen: Positive: Soft Skin: Positive: Clear Extremities: Present: Other (TR.EDEMA). Absent: edema (NO) - Allied health notes Allied health notes reviewed: nursing
--- NOTE | 2022-04-23 14:12 | Progress Note ---
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 Protein calorie malnutrition Acute Bronchopneumonia HCAP Hypotension NSTEMI Hypernatremia Acute Metabolic Encephalopathy H/o Amyotrophic Lateral Sclerosis Nonverbal at Baseline Thrombocytopenia Protein Caloric Malnutrition Constipation (suspect transient and persistent atelectasis responsible for desaturations) - repeat CXR in am +/- bronch - will increase peep to 12 for alveolar recruitment / to prevent de-recruitment - repeat ABG prn - no weaning today re: hypoxemia - continue care as below otherwise; - continue mucomyst nebs for thick tenacious secretions - continue scheduled CPT - continue Seroquel for anxiolysis / delirium - continue bronchodilators with pulmonary hygiene per RT - Daily SAT and SBT assessment as tolerated - continue to wean supplemental oxygen for target O2 sat's > 90% acutely - VAP bundle addressed - continue lung protective strategies - wean per pulmonary driven protocols otherwise - continue accuchecks with glycemic control per SSI (While critically ill target blood glucose of 140-180 mg/dL; avoid hypoglycemia) - sedation prn for target RASS 0 to -1 - avoid nephrotoxins, renally dose all medications - continue to avoid benzodiazepine's, reduce the possibility of delirium - AB's per ID rec's - prn analgesia per CPOT score - Maintenance of sleep-wake cycle, avoid delirium - continue enteral nutritional support at goal rate as tolerated - G.I. & VTE prophylaxis - PT/OT/ROM exercises - continue mobility protocols for pressure ulcer prophylaxis - Monitor hemodynamics closely - continue other care per attending / other consultants - discharge planning ongoing concurrently COVID SPECIFIC INTERVENTIONS - test pending .... Re-evaluate in am & prn CONDITION: CRITICAL PROGNOSIS: GUARDED CODE STATUS: FULL CODE The high probability of a clinically significant, sudden or life-threatening deterioration of the [respiratory, cardiovascular & neurologic] system(s) required my full and direct attention, intervention and personal management. The aggregate critical care time was [33] minutes without overlap. Time includes spent on; [x] Data Review and interpretation [x] Patient assessment and monitoring of vital signs [x] Documentation [x] Medication orders and management Subjective Date of service: 04/23/22 Principal diagnosis: Ac and ch hypercapnic and hypoxemic Resp Failure; ALS; HCAP; Sepsis; NSTEMI Interval history: Patient is seen today for: Acute and chronic hypercapnic and hypoxemic Respiratory Failure; ALS; HCAP; Sepsis; NSTEMI; AMS; Hypernatremia; Thrombocytopenia; Protein Caloric Malnutrition; Constipation Seen and examined at bedside; 24hour events reviewed; nursing and respiratory care staff consulted; no adverse overnight events reported to me; resting peacefully in bed; remains on MVS; FiO2 back at 60%; denies pain by nodding "no"; no emesis or overt aspiration; s/p chest PT Objective Vital Signs - 12hr 04/23/22 04/23/22 04/23/22 03:00 04:00 05:00 Temperature 99.0 F Pulse Rate 95 H 101 H 95 H Pulse Rate [ Anterior Bilateral Throughout] Pulse Rate [ 98 H From Monitor] Respiratory 15 14 14 Rate Respiratory Rate [Anterior Bilateral Throughout] Blood Pressure 120/72 117/74 118/74 O2 Sat by Pulse 89 92 94 Oximetry O2 Sat by Pulse Oximetry [ Assessment] 04/23/22 04/23/22 04/23/22 06:00 06:21 07:00 Temperature Pulse Rate 97 H 96 H 73 Pulse Rate [ Anterior Bilateral Throughout] Pulse Rate [ From Monitor] Respiratory 15 14 Rate Respiratory Rate [Anterior Bilateral Throughout] Blood Pressure 125/72 125/72 122/71 O2 Sat by Pulse 96 93 Oximetry O2 Sat by Pulse Oximetry [ Assessment] 04/23/22 04/23/22 04/23/22 07:44 08:00 08:10 Temperature 98.8 F Pulse Rate 82 84 Pulse Rate [ 87 Anterior Bilateral Throughout] Pulse Rate [ From Monitor] Respiratory 15 20 Rate Respiratory 14 Rate [Anterior Bilateral Throughout] Blood Pressure 116/73 106/66 O2 Sat by Pulse 98 98 96 Oximetry O2 Sat by Pulse 98 Oximetry [ Assessment] 04/23/22 04/23/22 04/23/22 09:00 10:00 11:00 Temperature Pulse Rate 87 90 83 Pulse Rate [ Anterior Bilateral Throughout] Pulse Rate [ From Monitor] Respiratory 14 14 14 Rate Respiratory Rate [Anterior Bilateral Throughout] Blood Pressure 117/71 104/58 118/64 O2 Sat by Pulse 98 97 92 Oximetry O2 Sat by Pulse Oximetry [ Assessment] 04/23/22 04/23/22 04/23/22 11:30 12:00 12:05 Temperature 98.7 F Pulse Rate 97 H 95 H Pulse Rate [ Anterior Bilateral Throughout] Pulse Rate [ From Monitor] Respiratory 14 20 Rate Respiratory Rate [Anterior Bilateral Throughout] Blood Pressure 123/73 122/73 O2 Sat by Pulse 98 92 96 Oximetry O2 Sat by Pulse Oximetry [ Assessment] 04/23/22 04/23/22 13:00 13:08 Temperature Pulse Rate 94 H 95 H Pulse Rate [ Anterior Bilateral Throughout] Pulse Rate [ From Monitor] Respiratory 14 Rate Respiratory Rate [Anterior Bilateral Throughout] Blood Pressure 122/75 122/75 O2 Sat by Pulse 92 Oximetry O2 Sat by Pulse Oximetry [ Assessment] Constitutional: alert, appears uncomfortable, other (orally intubated in bed with mildly increased respiratory effort at rest) Eyes: non-icteric ENT: oropharynx moist, other (+ midline tracheostomy) Neck: supple, no lymphadenopathy, no JVD, other (RIJ CVL) Effort: mildly labored Ascultation: Bilateral: diminished breath sounds (bases), rhonchi Percussion: Bilateral: not dull Cardiovascular: regular rate and rhythm, other (S1,S2) Gastrointestinal: normoactive bowel sounds, soft, non-tender, non-distended Integumentary: normal Extremities: no cyanosis, no edema, pink and warm, pulses normal Neurologic: pupils equal and round, other (functional quadriplegia) Psychiatric: anxious (affect), other CBC and BMP: 04/22/22 05:03 04/22/22 05:03 ABG, PT/INR, D-dimer: ABG ABG pH 7.369 pH Units (7.350-7.450) 04/23/22 09:40 ABG pCO2 86.8 mm Hg 04/23/22 09:40 ABG pO2 56.8 mm Hg (80.0-90.0) L 04/23/22 09:40 ABG O2 Saturation 90.9 % (95.0-99.0) L 04/23/22 09:40 PT/INR, D-dimer PT 13.6 Sec. (12.2-14.9) 04/13/22 04:30 INR 0.94 (0.87-1.13) 04/13/22 04:30 Abnormal lab findings: Abnormal Labs 04/02/22 04/02/22 04/02/22 19:39 19:39 19:39 WBC 14.3 H RBC Hgb Hct MCV 96 H Plt Count 104 L Lymph % (Auto) [place] % (Auto) Lymph # (Auto) [place] # (Auto) Seg Neutrophils % Seg Neuts % (Manual) 94.0 H Lymphocytes % (Manual) 1.0 L Seg Neutrophils # Seg Neutrophils # Man 13.4 H Lymphocytes # (Manual) 0.1 L PT 15.9 H INR 1.14 H ABG pH ABG pO2 ABG HCO3 ABG O2 Saturation ABG Base Excess ABG Hemoglobin Oxyhemoglobin Sodium 151 H Potassium Chloride Carbon Dioxide BUN Creatinine 0.5 L Glucose POC Glucose Calcium 8.2 L Phosphorus Magnesium 1.60 L Total Creatine Kinase CK-MB (CK-2) Rel Index Troponin T 0.048 H C-Reactive Protein Total Protein 4.6 L Albumin 2.7 L LDL Cholesterol Direct 27 L Urine WBC (Auto) 04/02/22 04/03/22 04/03/22 19:42 05:14 06:30 WBC RBC Hgb Hct MCV Plt Count Lymph % (Auto) [place] % (Auto) Lymph # (Auto) [place] # (Auto) Seg Neutrophils % Seg Neuts % (Manual) Lymphocytes % (Manual) Seg Neutrophils # Seg Neutrophils # Man Lymphocytes # (Manual) PT INR ABG pH 7.471 H 7.496 H ABG pO2 47.8 L 91.0 H ABG HCO3 30.6 H ABG O2 Saturation 94.4 L ABG Base Excess 6.2 H ABG Hemoglobin 11.0 L 12.8 L Oxyhemoglobin 93.1 L Sodium 149 H Potassium 3.4 L Chloride Carbon Dioxide BUN Creatinine 0.4 L Glucose POC Glucose Calcium Phosphorus Magnesium Total Creatine Kinase CK-MB (CK-2) Rel Index Troponin T C-Reactive Protein Total Protein Albumin LDL Cholesterol Direct Urine WBC (Auto) 04/04/22 04/04/22 04/04/22 04:18 04:18 05:50 WBC 11.8 H RBC Hgb Hct MCV Plt Count 132 L Lymph % (Auto) [place] % (Auto) Lymph # (Auto) [place] # (Auto) Seg Neutrophils % Seg Neuts % (Manual) Lymphocytes % (Manual) Seg Neutrophils # Seg Neutrophils # Man Lymphocytes # (Manual) PT INR ABG pH 7.517 H ABG pO2 115.5 H ABG HCO3 29.9 H ABG O2 Saturation ABG Base Excess 6.7 H ABG Hemoglobin 12.3 L Oxyhemoglobin Sodium Potassium 3.5 L Chloride Carbon Dioxide 31 H BUN Creatinine 0.3 L Glucose 153 H POC Glucose Calcium Phosphorus 1.40 L Magnesium 1.50 L Total Creatine Kinase CK-MB (CK-2) Rel Index Troponin T C-Reactive Protein 31.60 H Total Protein Albumin LDL Cholesterol Direct Urine WBC (Auto) 04/05/22 04/05/22 04/05/22 02:50 05:25 11:28 WBC RBC Hgb Hct MCV Plt Count Lymph % (Auto) [place] % (Auto) Lymph # (Auto) [place] # (Auto) Seg Neutrophils % Seg Neuts % (Manual) Lymphocytes % (Manual) Seg Neutrophils # Seg Neutrophils # Man Lymphocytes # (Manual) PT INR ABG pH 7.455 H ABG pO2 50.7 L ABG HCO3 30.5 H ABG O2 Saturation 89.4 L ABG Base Excess 5.9 H ABG Hemoglobin 11.8 L Oxyhemoglobin 88.2 L Sodium Potassium Chloride Carbon Dioxide 32 H BUN Creatinine 0.2 L Glucose 110 H POC Glucose 124 H Calcium 7.9 L Phosphorus Magnesium Total Creatine Kinase CK-MB (CK-2) Rel Index Troponin T C-Reactive Protein Total Protein Albumin LDL Cholesterol Direct Urine WBC (Auto) 04/05/22 04/05/22 04/06/22 17:45 Unknown 04:00 WBC RBC 3.55 L Hgb 11.1 L 11.5 L Hct 33.2 L 35.1 L MCV Plt Count 113 L 114 L Lymph % (Auto) [place] % (Auto) Lymph # (Auto) [place] # (Auto) Seg Neutrophils % Seg Neuts % (Manual) Lymphocytes % (Manual) Seg Neutrophils # Seg Neutrophils # Man Lymphocytes # (Manual) PT INR ABG pH ABG pO2 ABG HCO3 ABG O2 Saturation ABG Base Excess ABG Hemoglobin Oxyhemoglobin Sodium Potassium Chloride Carbon Dioxide BUN Creatinine Glucose POC Glucose Calcium Phosphorus Magnesium Total Creatine Kinase CK-MB (CK-2) Rel Index Troponin T C-Reactive Protein Total Protein Albumin LDL Cholesterol Direct Urine WBC (Auto) 8.0 H 04/06/22 04/06/22 04/07/22 04:00 08:30 00:04 WBC RBC Hgb Hct MCV Plt Count Lymph % (Auto) [place] % (Auto) Lymph # (Auto) [place] # (Auto) Seg Neutrophils % Seg Neuts % (Manual) Lymphocytes % (Manual) Seg Neutrophils # Seg Neutrophils # Man Lymphocytes # (Manual) PT INR ABG pH ABG pO2 60.8 L ABG HCO3 30.5 H ABG O2 Saturation 93.3 L ABG Base Excess 4.9 H ABG Hemoglobin 12.4 L Oxyhemoglobin 92.1 L Sodium Potassium 3.0 L Chloride Carbon Dioxide BUN Creatinine < 0.2 L Glucose 130 H POC Glucose 117 H Calcium 8.1 L Phosphorus Magnesium Total Creatine Kinase CK-MB (CK-2) Rel Index Troponin T C-Reactive Protein Total Protein Albumin LDL Cholesterol Direct Urine WBC (Auto) 04/07/22 04/07/22 04/07/22 03:51 03:51 03:51 WBC 14.6 H RBC 3.57 L Hgb 11.1 L Hct 33.2 L MCV Plt Count 118 L Lymph % (Auto) 4.3 L [place] % (Auto) 8.8 H Lymph # (Auto) 0.6 L [place] # (Auto) 1.3 H Seg Neutrophils % 86.6 H Seg Neuts % (Manual) Lymphocytes % (Manual) Seg Neutrophils # 12.7 H Seg Neutrophils # Man Lymphocytes # (Manual) PT 15.2 H INR ABG pH ABG pO2 ABG HCO3 ABG O2 Saturation ABG Base Excess ABG Hemoglobin Oxyhemoglobin Sodium 133 L Potassium Chloride 96.0 L Carbon Dioxide 31 H BUN Creatinine 0.2 L Glucose 130 H POC Glucose Calcium 8.0 L Phosphorus Magnesium Total Creatine Kinase CK-MB (CK-2) Rel Index Troponin T C-Reactive Protein Total Protein Albumin LDL Cholesterol Direct Urine WBC (Auto) 04/07/22 04/07/22 04/08/22 04:25 09:10 04:49 WBC 16.1 H RBC 3.54 L Hgb 10.9 L Hct 33.3 L MCV Plt Count Lymph % (Auto) [place] % (Auto) Lymph # (Auto) [place] # (Auto) Seg Neutrophils % Seg Neuts % (Manual) Lymphocytes % (Manual) Seg Neutrophils # Seg Neutrophils # Man Lymphocytes # (Manual) PT INR ABG pH ABG pO2 71.0 L 63.4 L ABG HCO3 31.5 H 40.0 H ABG O2 Saturation 94.9 L ABG Base Excess 5.9 H 13.6 H ABG Hemoglobin 11.3 L 9.0 L Oxyhemoglobin 93.6 L Sodium Potassium Chloride Carbon Dioxide BUN Creatinine Glucose POC Glucose Calcium Phosphorus Magnesium Total Creatine Kinase CK-MB (CK-2) Rel Index Troponin T C-Reactive Protein Total Protein Albumin LDL Cholesterol Direct Urine WBC (Auto) 04/08/22 04/08/22 04/08/22 04:49 09:53 10:25 WBC RBC Hgb Hct MCV Plt Count Lymph % (Auto) [place] % (Auto) Lymph # (Auto) [place] # (Auto) Seg Neutrophils % Seg Neuts % (Manual) Lymphocytes % (Manual) Seg Neutrophils # Seg Neutrophils # Man Lymphocytes # (Manual) PT INR ABG pH ABG pO2 ABG HCO3 34.7 H ABG O2 Saturation ABG Base Excess 7.9 H ABG Hemoglobin 11.0 L Oxyhemoglobin Sodium 136 L Potassium Chloride 97.7 L Carbon Dioxide 33 H BUN Creatinine 0.2 L Glucose 155 H POC Glucose Calcium Phosphorus Magnesium Total Creatine Kinase CK-MB (CK-2) Rel Index Troponin T 0.030 H C-Reactive Protein Total Protein Albumin LDL Cholesterol Direct Urine WBC (Auto) 04/08/22 04/08/22 04/08/22 11:19 17:47 18:06 WBC RBC Hgb Hct MCV Plt Count Lymph % (Auto) [place] % (Auto) Lymph # (Auto) [place] # (Auto) Seg Neutrophils % Seg Neuts % (Manual) Lymphocytes % (Manual) Seg Neutrophils # Seg Neutrophils # Man Lymphocytes # (Manual) PT INR ABG pH ABG pO2 ABG HCO3 ABG O2 Saturation ABG Base Excess ABG Hemoglobin Oxyhemoglobin Sodium Potassium Chloride Carbon Dioxide BUN Creatinine Glucose POC Glucose 121 H Calcium Phosphorus Magnesium Total Creatine Kinase 31 L 46 L CK-MB (CK-2) Rel Index 6.4 H 5.6 H Troponin T 0.030 H 0.031 H C-Reactive Protein Total Protein Albumin LDL Cholesterol Direct Urine WBC (Auto) 04/09/22 04/09/22 04/09/22 04:35 04:35 11:24 WBC 11.5 H RBC 3.16 L Hgb 9.9 L Hct 29.4 L MCV Plt Count 131 L Lymph % (Auto) [place] % (Auto) Lymph # (Auto) [place] # (Auto) Seg Neutrophils % Seg Neuts % (Manual) Lymphocytes % (Manual) Seg Neutrophils # Seg Neutrophils # Man Lymphocytes # (Manual) PT INR ABG pH ABG pO2 ABG HCO3 ABG O2 Saturation ABG Base Excess ABG Hemoglobin Oxyhemoglobin Sodium Potassium Chloride 97.1 L Carbon Dioxide 35 H BUN Creatinine < 0.2 L Glucose 145 H POC Glucose 147 H Calcium Phosphorus Magnesium Total Creatine Kinase CK-MB (CK-2) Rel Index Troponin T C-Reactive Protein Total Protein Albumin LDL Cholesterol Direct Urine WBC (Auto) 04/09/22 04/09/22 04/09/22 13:00 17:32 23:48 WBC RBC Hgb Hct MCV Plt Count Lymph % (Auto) [place] % (Auto) Lymph # (Auto) [place] # (Auto) Seg Neutrophils % Seg Neuts % (Manual) Lymphocytes % (Manual) Seg Neutrophils # Seg Neutrophils # Man Lymphocytes # (Manual) PT INR ABG pH ABG pO2 66.6 L ABG HCO3 38.2 H ABG O2 Saturation 94.4 L ABG Base Excess 10.7 H ABG Hemoglobin 10.7 L Oxyhemoglobin 92.8 L Sodium Potassium Chloride Carbon Dioxide BUN Creatinine Glucose POC Glucose 143 H 114 H Calcium Phosphorus Magnesium Total Creatine Kinase CK-MB (CK-2) Rel Index Troponin T C-Reactive Protein Total Protein Albumin LDL Cholesterol Direct Urine WBC (Auto) 04/10/22 04/10/22 04/10/22 04:48 04:48 05:34 WBC RBC 2.91 L Hgb 9.1 L Hct 27.7 L MCV 95 H Plt Count Lymph % (Auto) [place] % (Auto) Lymph # (Auto) [place] # (Auto) Seg Neutrophils % Seg Neuts % (Manual) Lymphocytes % (Manual) Seg Neutrophils # Seg Neutrophils # Man Lymphocytes # (Manual) PT INR ABG pH ABG pO2 ABG HCO3 ABG O2 Saturation ABG Base Excess ABG Hemoglobin Oxyhemoglobin Sodium Potassium Chloride 95.7 L Carbon Dioxide 38 H BUN Creatinine < 0.2 L Glucose 118 H POC Glucose 127 H Calcium Phosphorus Magnesium Total Creatine Kinase CK-MB (CK-2) Rel Index Troponin T C-Reactive Protein Total Protein Albumin LDL Cholesterol Direct Urine WBC (Auto) 04/10/22 04/11/22 04/11/22 23:10 04:15 04:15 WBC 17.2 H RBC 2.98 L Hgb 9.2 L Hct 27.9 L MCV Plt Count Lymph % (Auto) [place] % (Auto) Lymph # (Auto) [place] # (Auto) Seg Neutrophils % Seg Neuts % (Manual) Lymphocytes % (Manual) Seg Neutrophils # Seg Neutrophils # Man Lymphocytes # (Manual) PT INR ABG pH ABG pO2 ABG HCO3 ABG O2 Saturation ABG Base Excess ABG Hemoglobin Oxyhemoglobin Sodium Potassium Chloride 96.1 L Carbon Dioxide 35 H BUN Creatinine < 0.2 L Glucose 138 H POC Glucose 106 H Calcium 8.3 L Phosphorus Magnesium Total Creatine Kinase CK-MB (CK-2) Rel Index Troponin T C-Reactive Protein Total Protein Albumin LDL Cholesterol Direct Urine WBC (Auto) 04/11/22 04/11/22 04/11/22 05:31 13:18 16:20 WBC RBC Hgb Hct MCV Plt Count Lymph % (Auto) [place] % (Auto) Lymph # (Auto) [place] # (Auto) Seg Neutrophils % Seg Neuts % (Manual) Lymphocytes % (Manual) Seg Neutrophils # Seg Neutrophils # Man Lymphocytes # (Manual) PT INR ABG pH ABG pO2 57.8 L ABG HCO3 40.5 H ABG O2 Saturation 90.6 L ABG Base Excess 12.6 H ABG Hemoglobin 10.5 L Oxyhemoglobin 89.0 L Sodium Potassium Chloride Carbon Dioxide BUN Creatinine Glucose POC Glucose 129 H 132 H Calcium Phosphorus Magnesium Total Creatine Kinase CK-MB (CK-2) Rel Index Troponin T C-Reactive Protein Total Protein Albumin LDL Cholesterol Direct Urine WBC (Auto) 04/11/22 04/11/22 04/12/22 17:29 23:17 04:00 WBC 17.4 H RBC 2.96 L Hgb 9.0 L Hct 28.0 L MCV 95 H Plt Count Lymph % (Auto) [place] % (Auto) Lymph # (Auto) [place] # (Auto) Seg Neutrophils % Seg Neuts % (Manual) Lymphocytes % (Manual) Seg Neutrophils # Seg Neutrophils # Man Lymphocytes # (Manual) PT INR ABG pH ABG pO2 ABG HCO3 ABG O2 Saturation ABG Base Excess ABG Hemoglobin Oxyhemoglobin Sodium Potassium Chloride Carbon Dioxide BUN Creatinine Glucose POC Glucose 125 H 151 H Calcium Phosphorus Magnesium Total Creatine Kinase CK-MB (CK-2) Rel Index Troponin T C-Reactive Protein Total Protein Albumin LDL Cholesterol Direct Urine WBC (Auto) 04/12/22 04/12/22 04/12/22 04:00 17:03 23:39 WBC RBC Hgb Hct MCV Plt Count Lymph % (Auto) [place] % (Auto) Lymph # (Auto) [place] # (Auto) Seg Neutrophils % Seg Neuts % (Manual) Lymphocytes % (Manual) Seg Neutrophils # Seg Neutrophils # Man Lymphocytes # (Manual) PT INR ABG pH ABG pO2 ABG HCO3 ABG O2 Saturation ABG Base Excess ABG Hemoglobin Oxyhemoglobin Sodium Potassium Chloride 97.4 L Carbon Dioxide 37 H BUN Creatinine < 0.2 L Glucose 127 H POC Glucose 106 H 107 H Calcium Phosphorus Magnesium Total Creatine Kinase CK-MB (CK-2) Rel Index Troponin T C-Reactive Protein Total Protein Albumin LDL Cholesterol Direct Urine WBC (Auto) 04/13/22 04/13/22 04/13/22 04:30 04:30 17:39 WBC 14.1 H RBC 2.66 L Hgb 8.4 L Hct 25.5 L MCV 96 H Plt Count Lymph % (Auto) [place] % (Auto) Lymph # (Auto) [place] # (Auto) Seg Neutrophils % Seg Neuts % (Manual) Lymphocytes % (Manual) Seg Neutrophils # Seg Neutrophils # Man Lymphocytes # (Manual) PT INR ABG pH ABG pO2 ABG HCO3 ABG O2 Saturation ABG Base Excess ABG Hemoglobin Oxyhemoglobin Sodium Potassium Chloride 93.9 L Carbon Dioxide 39 H BUN Creatinine < 0.2 L Glucose POC Glucose 134 H Calcium Phosphorus 1.90 L Magnesium Total Creatine Kinase CK-MB (CK-2) Rel Index Troponin T C-Reactive Protein Total Protein Albumin LDL Cholesterol Direct Urine WBC (Auto) 04/14/22 04/14/22 04/14/22 05:03 05:03 09:10 WBC 15.6 H RBC 3.02 L Hgb 9.3 L Hct 28.8 L MCV 95 H Plt Count Lymph % (Auto) [place] % (Auto) Lymph # (Auto) [place] # (Auto) Seg Neutrophils % Seg Neuts % (Manual) Lymphocytes % (Manual) Seg Neutrophils # Seg Neutrophils # Man Lymphocytes # (Manual) PT INR ABG pH ABG pO2 66.9 L ABG HCO3 44.5 H ABG O2 Saturation ABG Base Excess 17.2 H ABG Hemoglobin 8.1 L Oxyhemoglobin 94.8 L Sodium Potassium Chloride 93.8 L Carbon Dioxide 42 H* BUN Creatinine < 0.2 L Glucose 117 H POC Glucose Calcium Phosphorus Magnesium Total Creatine Kinase CK-MB (CK-2) Rel Index Troponin T C-Reactive Protein Total Protein Albumin LDL Cholesterol Direct Urine WBC (Auto) 04/15/22 04/15/22 04/16/22 04:44 04:44 04:16 WBC 13.0 H 12.6 H RBC 3.19 L 3.09 L Hgb 9.6 L 9.5 L Hct 30.2 L 29.1 L MCV 95 H Plt Count 456 H Lymph % (Auto) [place] % (Auto) Lymph # (Auto) [place] # (Auto) Seg Neutrophils % Seg Neuts % (Manual) Lymphocytes % (Manual) Seg Neutrophils # Seg Neutrophils # Man Lymphocytes # (Manual) PT INR ABG pH ABG pO2 ABG HCO3 ABG O2 Saturation ABG Base Excess ABG Hemoglobin Oxyhemoglobin Sodium Potassium Chloride 95.5 L Carbon Dioxide 37 H BUN Creatinine < 0.2 L Glucose POC Glucose Calcium Phosphorus Magnesium Total Creatine Kinase CK-MB (CK-2) Rel Index Troponin T C-Reactive Protein Total Protein Albumin LDL Cholesterol Direct Urine WBC (Auto) 04/16/22 04/16/22 04/16/22 04:16 05:00 14:00 WBC RBC Hgb Hct MCV Plt Count Lymph % (Auto) [place] % (Auto) Lymph # (Auto) [place] # (Auto) Seg Neutrophils % Seg Neuts % (Manual) Lymphocytes % (Manual) Seg Neutrophils # Seg Neutrophils # Man Lymphocytes # (Manual) PT INR ABG pH 7.324 L ABG pO2 55.6 L ABG HCO3 45.3 H ABG O2 Saturation 87.1 L ABG Base Excess 16.6 H ABG Hemoglobin 8.6 L Oxyhemoglobin 85.7 L Sodium Potassium Chloride 97.6 L Carbon Dioxide 36 H BUN Creatinine < 0.2 L Glucose 109 H POC Glucose 120 H Calcium Phosphorus Magnesium Total Creatine Kinase CK-MB (CK-2) Rel Index Troponin T C-Reactive Protein Total Protein Albumin LDL Cholesterol Direct Urine WBC (Auto) 04/17/22 04/17/22 04/17/22 04:36 04:36 04:57 WBC 14.4 H RBC 3.08 L Hgb 9.4 L Hct 29.0 L MCV Plt Count Lymph % (Auto) [place] % (Auto) Lymph # (Auto) [place] # (Auto) Seg Neutrophils % Seg Neuts % (Manual) Lymphocytes % (Manual) Seg Neutrophils # Seg Neutrophils # Man Lymphocytes # (Manual) PT INR ABG pH ABG pO2 ABG HCO3 ABG O2 Saturation ABG Base Excess ABG Hemoglobin Oxyhemoglobin Sodium Potassium Chloride 95.9 L Carbon Dioxide 39 H BUN Creatinine < 0.2 L Glucose 140 H POC Glucose 137 H Calcium 8.3 L Phosphorus Magnesium Total Creatine Kinase CK-MB (CK-2) Rel Index Troponin T C-Reactive Protein Total Protein Albumin LDL Cholesterol Direct Urine WBC (Auto) 04/17/22 04/17/22 04/18/22 09:15 18:01 04:20 WBC 11.2 H RBC 3.00 L Hgb 9.3 L Hct 28.6 L MCV 95 H Plt Count Lymph % (Auto) [place] % (Auto) Lymph # (Auto) [place] # (Auto) Seg Neutrophils % Seg Neuts % (Manual) Lymphocytes % (Manual) Seg Neutrophils # Seg Neutrophils # Man Lymphocytes # (Manual) PT INR ABG pH 7.345 L ABG pO2 ABG HCO3 48.2 H ABG O2 Saturation ABG Base Excess 19.2 H ABG Hemoglobin 9.7 L Oxyhemoglobin Sodium Potassium Chloride Carbon Dioxide BUN Creatinine Glucose POC Glucose 129 H Calcium Phosphorus Magnesium Total Creatine Kinase CK-MB (CK-2) Rel Index Troponin T C-Reactive Protein Total Protein Albumin LDL Cholesterol Direct Urine WBC (Auto) 04/18/22 04/18/22 04/18/22 04:20 17:35 23:50 WBC RBC Hgb Hct MCV Plt Count Lymph % (Auto) [place] % (Auto) Lymph # (Auto) [place] # (Auto) Seg Neutrophils % Seg Neuts % (Manual) Lymphocytes % (Manual) Seg Neutrophils # Seg Neutrophils # Man Lymphocytes # (Manual) PT INR ABG pH ABG pO2 ABG HCO3 ABG O2 Saturation ABG Base Excess ABG Hemoglobin Oxyhemoglobin Sodium Potassium Chloride 96.8 L Carbon Dioxide 43 H* BUN 22 H Creatinine < 0.2 L Glucose 137 H POC Glucose 128 H 123 H Calcium 8.2 L Phosphorus Magnesium Total Creatine Kinase CK-MB (CK-2) Rel Index Troponin T C-Reactive Protein Total Protein Albumin LDL Cholesterol Direct Urine WBC (Auto) 04/19/22 04/19/22 04/19/22 04:08 04:08 08:50 WBC 16.8 H RBC 3.18 L Hgb 9.8 L Hct 30.1 L MCV 95 H Plt Count Lymph % (Auto) [place] % (Auto) Lymph # (Auto) [place] # (Auto) Seg Neutrophils % Seg Neuts % (Manual) Lymphocytes % (Manual) Seg Neutrophils # Seg Neutrophils # Man Lymphocytes # (Manual) PT INR ABG pH ABG pO2 56.0 L ABG HCO3 47.1 H ABG O2 Saturation 93.3 L ABG Base Excess 20.1 H ABG Hemoglobin 8.0 L Oxyhemoglobin 91.8 L Sodium Potassium Chloride 96.2 L Carbon Dioxide 40 H BUN 24 H Creatinine < 0.2 L Glucose 125 H POC Glucose Calcium 8.3 L Phosphorus Magnesium Total Creatine Kinase CK-MB (CK-2) Rel Index Troponin T C-Reactive Protein Total Protein Albumin LDL Cholesterol Direct Urine WBC (Auto) 04/19/22 04/20/22 04/20/22 12:02 00:40 04:49 WBC 14.7 H RBC 3.36 L Hgb 10.3 L Hct 32.0 L MCV 95 H Plt Count Lymph % (Auto) [place] % (Auto) Lymph # (Auto) [place] # (Auto) Seg Neutrophils % Seg Neuts % (Manual) Lymphocytes % (Manual) Seg Neutrophils # Seg Neutrophils # Man Lymphocytes # (Manual) PT INR ABG pH ABG pO2 ABG HCO3 ABG O2 Saturation ABG Base Excess ABG Hemoglobin Oxyhemoglobin Sodium Potassium Chloride Carbon Dioxide BUN Creatinine Glucose POC Glucose 124 H 140 H Calcium Phosphorus Magnesium Total Creatine Kinase CK-MB (CK-2) Rel Index Troponin T C-Reactive Protein Total Protein Albumin LDL Cholesterol Direct Urine WBC (Auto) 04/20/22 04/20/22 04/21/22 05:36 11:40 04:05 WBC RBC Hgb Hct MCV Plt Count Lymph % (Auto) [place] % (Auto) Lymph # (Auto) [place] # (Auto) Seg Neutrophils % Seg Neuts % (Manual) Lymphocytes % (Manual) Seg Neutrophils # Seg Neutrophils # Man Lymphocytes # (Manual) PT INR ABG pH ABG pO2 ABG HCO3 ABG O2 Saturation ABG Base Excess ABG Hemoglobin Oxyhemoglobin Sodium Potassium Chloride 93.4 L Carbon Dioxide 40 H BUN 25 H Creatinine < 0.2 L Glucose 122 H POC Glucose 125 H 128 H Calcium Phosphorus Magnesium Total Creatine Kinase CK-MB (CK-2) Rel Index Troponin T C-Reactive Protein Total Protein Albumin LDL Cholesterol Direct Urine WBC (Auto) 04/21/22 04/22/22 04/22/22 10:31 05:03 05:03 WBC 12.6 H 12.7 H RBC 2.83 L 2.96 L Hgb 8.6 L 9.0 L Hct 26.9 L 28.0 L MCV 95 H 95 H Plt Count Lymph % (Auto) [place] % (Auto) Lymph # (Auto) [place] # (Auto) Seg Neutrophils % Seg Neuts % (Manual) Lymphocytes % (Manual) Seg Neutrophils # Seg Neutrophils # Man Lymphocytes # (Manual) PT INR ABG pH ABG pO2 ABG HCO3 ABG O2 Saturation ABG Base Excess ABG Hemoglobin Oxyhemoglobin Sodium Potassium Chloride 93.9 L Carbon Dioxide 43 H* BUN 23 H Creatinine < 0.2 L Glucose 137 H POC Glucose Calcium Phosphorus Magnesium Total Creatine Kinase CK-MB (CK-2) Rel Index Troponin T C-Reactive Protein Total Protein Albumin LDL Cholesterol Direct Urine WBC (Auto) 04/22/22 04/23/22 08:34 09:40 WBC RBC Hgb Hct MCV Plt Count Lymph % (Auto) [place] % (Auto) Lymph # (Auto) [place] # (Auto) Seg Neutrophils % Seg Neuts % (Manual) Lymphocytes % (Manual) Seg Neutrophils # Seg Neutrophils # Man Lymphocytes # (Manual) PT INR ABG pH ABG pO2 54.1 L 56.8 L ABG HCO3 48.5 H 49.0 H ABG O2 Saturation 92.1 L 90.9 L ABG Base Excess 20.9 H 20.8 H ABG Hemoglobin 9.0 L 8.4 L Oxyhemoglobin 90.6 L 89.5 L Sodium Potassium Chloride Carbon Dioxide BUN Creatinine Glucose POC Glucose Calcium Phosphorus Magnesium Total Creatine Kinase CK-MB (CK-2) Rel Index Troponin T C-Reactive Protein Total Protein Albumin LDL Cholesterol Direct Urine WBC (Auto) Chest x-ray: pending Allied health notes reviewed: nursing
[2022-04-23] MEDS: fentaNYL 100 MCG/2 ML INJ IV PRN (17:00)
--- NOTE | 2022-04-23 17:31 | Progress Note ---
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, recently hospitalized at [facility] admitted for acute hypoxemic respiratory failure 2/2 pneumonia Neuro: h/o ALS -s/p precedex, fentanyl gtt -Reorientation as needed -Maintain sleep-wake cycle -As needed analgesia -CT head with no acute intracranial process -Per family patient is nonverbal at baseline but responsive -Seroquel Cardiac: Suspect ischemic coronary artery disease, h/o cardiomyopathy -Cardiology consulted, appreciate recommendations -continue conservative management -Blood pressure monitoring per protocol -s/p Vasopressor support with Levophed -Echocardiogram shows ejection fraction of 40 to 45%, mild global hypokinesis of left ventricle -Nitro patch, BB Respiratory: Acute hypoxic respiratory failure -CCM consulted, appreciate recommendations -Intubated on 04/02 with a 7.50 ETT attempt at the lips -s/p trach on 04/14 and s/p bronch on 04/15 -A.m. vent settings: Assist-control/ PRVC TV 400, rate 14, Peep 8, FiO2 60% -See RT notes for titration -CPT and mucomyst -VAP bundle -SPO2 monitoring GI: Moderate protein calorie malnutrition, constipation -24 hours +780 mL -PPI -Peg 04/14 -NTR consulted for tube feedings -BR: Senokot/colace, MiraLAX : NAD -Record intake and output -Renally dose medications -Avoid nephrotoxic medications -Daily weights -trend BMP ID: Sepsis, Acute Bronchopneumonia, HAP (Pseudomonas and Enterobacter tracheal aspirate), blood culture with bacillus species -Infectious disease consulted, appreciate recommendation -Per infectious disease patient was recently admitted to [facility] but discharged home with home hospice and not giving antibiotics -Tracheal aspirate with Pseudomonas aeruginosa, Enterobacter aerogenes -04/02 blood culture with bacillus species, 04/05 blood culture NGTD -CRP 31.6, procalcitonin 0.08 -MRSA (-) -s/p cefepime for 14 days -Monitor WBC and temperature curve Endo: NAD -Avoid hypoglycemia -SSI -Accu-Cheks q 6 Heme: Leukocytosis -Heparin subq -Trend CBC -Transfuse hemoglobin less than 7 -SCDs to BLE while in bed Advance Care Planning - Disease education, care plan, diagnoses, and prognosis were discussed patient's , Carly Lopez, and patient daughter, Kaylee Warren, who translated for #[phone]. They reported that patient was following at [facility] for his ALS and during recent hospitalization at [facility] they were told nothing else can be offered to patient at this time and patient was discharge home with home hospice and PO morphine. First hospice visit was on , 04/01 however, patient became unresponsive 04/02 and they brought in to the hospital. - Goal of care and code status were also addressed at that time. Family wants to wait for a couple days to see how patient respond to current treatment before making a decision. All questions and concerns were addressed at this time. Patient family acknowledged understanding and agreement with care plan. -Patient remains a FULL CODE status. -04/05: Discussion at bedside with interpreting service with Dr. Valdivia and family state they would discuss next steps amongst themselves and let healthcare team know of decisions -04/06: extensive discussion with family ( and son) with Dr. Grayson regarding goals of care -04/08: Extensive discussion with with the use of wind energy engineer line regarding goals of care; no decision made. Possible consult to surgery for trach/PEG ear ly next week. -04/09: Discussion with and her sister with Dr. Grayson and then with Dr. Pineda-> Consulted surgery for trach/peg -LTACH placement pending The high probability of a clinically significant, sudden or life threatening deterioration of the [resp] system(s) required my full and direct attention, intervention and personal management. The aggregate critical care time was [60] minutes. 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 Work-up in the emergency department revealed leukocytosis, elevated troponin and hyponatremia and CXR revealed moderate to large pleural effusion on the right. Patient was having agonal breathing in the emergency department and was intubated. Patient was admitted to the hospitalist service with consults to [facility], cardiology and infectious disease for further work-up. Hospital Course to Date: 04/03: Intubated and Sedated on versed gtt, RASS-5. CT head/brain noted with no acute intracranial abnormality. Plan to initiated precededx gtt and wean off versed for a RASS goal of 0 to -2. CT chect also reviewed, findings are most consistent with acute bronchopneumonia. Continue empiric IV Abx, vent adjustment per CCM. ID consulted. Continue to F/U on cultures. Titrate pressor for MAP above 65. Medical records requested from [facility]. 04/04: Remains stable on the vent, easily arousable on precedex gtt, not following commands. Plan for SAT/SBT today. PRN analgesia for CPOT greater than 3. Fevers improved, cultures and procal pending. Continue current IV abx, ID also consulted. Remains on low dose pressors, titrate pressors for a MAP above 65. 04/05: Long discussion with family with use of translation phone with [facility] regarding goals of care. Family to have meeting amongst themselves and informed care team of decisions. Fentanyl drip added for respiratory distress. Remains on Precedex drip. Antibiotics per ID. Given 2L NS bolus with levophed gtt 04/06: Family discussion with Dr. Grayson for goals of care. CXR shows possible mucus plug, continue CPT as FiO2 is being able to be weaned. Potassium repleted. Weaning fentnyl gtt. 04/07: Ultrasound guided thoracentesis today scheduled, inadequate amount of pleural effusion on so not completed. Patient was started on Levophed overnight which was weaned off this morning however had to be started twice a day. Remains on fentanyl and Precedex. Cardiology discontinued BB and ACEi in setting of hypotension. 04/08: COVID-19 PCR negative. Routine EEG ordered by cardiology which showed ST changes, cardiology aware. They will continue conservative treatment. Repeat troponins 0.030 which are less than admit of 0.048. Dr. Grayson had a long discussion with with the use of wind energy engineer today at bedside and has not made a decision regarding goals of care. Possible consult to surgery for trach/PEG early next week. Continues to require Precedex and fentanyl drip for sedation. Carvedilol/lisinopril discontinued as patient is continuously on Levophed. 04/09: No acute events reported overnight, remains on fentanyl, Precedex and Levophed drips. Dr. Grayson and Dr. Pineda updated family at bedside extensively today. Consulted surgery for trach/PEG. COVID-19 PCR negative. 04/10: Patient noted to have desaturation episodes, FiO2 increased slightly to 35%. Will add Mucomyst. Remains on fentanyl and Precedex. Off of Levophed. Surgery consulted for trach/PEG. 04/11: FiO2 increased over night likely related to hypoxia, continues on fent gtt, weaning precedex gtt as he is also on Seroquel. Will d/w CCM re scheduled or prn oxycodone 04/12: Periods of hypoxia and tachycardia this am. Symptoms improved post deep suction and tracheal lavage, Repeat CXR noted with no significant change. Continue CPT and mucomyst. Plan for possible trach/PEG tomorrow by general surgery. 04/13: Remains stable on the vent. Patient is wake and tracking but does not follow simple commands. No report of hypoxia from overnight, continue CPT and mucomyst. Plan for track and PEG today by General Surgery. Plan for LTAC placement post procedure, case management to arrange. 04/14: VIRGILIO overnight, Trach and PEG postponed for today by general surgery. Plan for LTAC placement post procedure, case management to arrange. 04/15: S/p Trach and PEG. Up to 80% FiO2 this am, this am CXR noted suggesting p ossible mucus plug. D/W [facility] plan for bronch today. Continue CPT and mucomyst. Plan of care thoroughly discussed with patient's and son (who translated for ) at the bedside. Per , clinical trainer had already discussed the risks and benefits of the procedure yesterday. She verbalized understanding and agreed with procedure and current care plan, consent signed. Okay to use PEG-tube for meds this am, resume TF once okay by general Surgery. Case management to arrange LTAC placement. 04/16: s/p Bronchocopy by [facility]. FiO2 down to 60%, angela 10 this am. This am CXR with moderate improvement. Continue CPT and mucomyst, wean Fio2 as tolerated for SPO2 above 92%. Patient is tolerating TF, advance to goal as ordered. Possible LTAC placement, case management to arrange. 04/17: VIRGILIO overnight. remains stable on the vent, recent CXR and this am ABG noted. Continue CPT and mucomyst, wean Fio2 as tolerated. 04/18: Remains stable on the vent, Fio2 down to 55% and peep of 8 this am. Continue to wean as tolerated, CPT, and mucomyst. Dsiposition- LTAC placement, case management to arrange. 04/19: No acute events overnight. Continue current management. 04/20: No acute events overnight, continue current management 04/21: Patient had chest ultrasound which showed trace pleural effusions, chest x-ray improved after the addition of Mucomyst yesterday. FiO2 55-65%. No acute events overnight. more interactive today. 04/22: Seroquel changed to BID, FiO2 was increased to 60%. RT increased FIO2 to 100 d/t desaturation into the 80s but was able to wean down. CCM increased PEEP and decreased FiO2. 04/23: CCM increase PEEP, no acute events reported overnight. Hospitalist Physical - Constitutional Vitals: Temp Pulse Resp BP Pulse Ox 98.7 F 102 H 16 121/78 98 04/23/22 12:00 04/23/22 16:10 04/23/22 16:10 04/23/22 15:10 04/23/22 16:10 General appearance: Present: no acute distress, cachectic, other (trach/) - EENT Eyes: Present: PERRL, EOM intact ENT: clear oral mucosa - Neck Neck: Absent: masses or JVD, cervical LAD - Respiratory Respiratory effort: normal Respiratory: bilateral: diminished, rhonchi - Cardiovascular Rhythm: regular Heart Sounds: Present: S1 & S2. Absent: systolic murmur, diastolic murmur - Extremities Extremities: no ischemia, pulses intact, pulses symmetrical, No edema, normal temperature, normal color Peripheral Pulses: within normal limits - Abdominal General gastrointestinal: soft, non-tender, normal bowel sounds - Integumentary Integumentary: Present: warm, dry - Psychiatric Psychiatric: cooperative - Neurologic Neurologic: focal deficits - Allied Health Allied health notes reviewed: nursing, OT, RT, social work HEART Score - HEART Score Troponin: Troponin T 0.031 ng/mL (0.00-0.029) H 04/08/22 17:47 Results - Labs CBC & Chem 7: 04/22/22 05:03 04/22/22 05:03 Labs: Laboratory Last Values WBC 12.7 K/mm3 (4.5-11.0) H 04/22/22 05:03 RBC 2.96 M/mm3 (3.65-5.03) L 04/22/22 05:03 Hgb 9.0 gm/dl (11.8-15.2) L 04/22/22 05:03 Hct 28.0 % (35.5-45.6) L 04/22/22 05:03 MCV 95 fl (84-94) H 04/22/22 05:03 MCH 31 pg (28-32) 04/22/22 05:03 MCHC 32 % (32-34) 04/22/22 05:03 RDW 13.8 % (13.2-15.2) 04/22/22 05:03 Plt Count 375 K/mm3 (140-440) 04/22/22 05:03 Lymph % (Auto) 4.3 % (13.4-35.0) L 04/07/22 03:51 [place] % (Auto) 8.8 % (0.0-7.3) H 04/07/22 03:51 Eos % (Auto) 0.1 % (0.0-4.3) 04/07/22 03:51 Baso % (Auto) 0.2 % (0.0-1.8) 04/07/22 03:51 Lymph # (Auto) 0.6 K/mm3 (1.2-5.4) L 04/07/22 03:51 [place] # (Auto) 1.3 K/mm3 (0.0-0.8) H 04/07/22 03:51 Eos # (Auto) 0.0 K/mm3 (0.0-0.4) 04/07/22 03:51 Baso # (Auto) 0.0 K/mm3 (0.0-0.1) 04/07/22 03:51 Add Manual Diff Complete 04/02/22 19:39 Total Counted 100 04/02/22 19:39 Seg Neutrophils % 86.6 % (40.0-70.0) H 04/07/22 03:51 Seg Neuts % (Manual) 94.0 % (40.0-70.0) H 04/02/22 19:39 Band Neutrophils % 0 % 04/02/22 19:39 Lymphocytes % (Manual) 1.0 % (13.4-35.0) L 04/02/22 19:39 Reactive Lymphs % (Man) 0 % 04/02/22 19:39 Monocytes % (Manual) 5.0 % (0.0-7.3) 04/02/22 19:39 Eosinophils % (Manual) 0 % (0.0-4.3) 04/02/22 19:39 Basophils % (Manual) 0 % (0.0-1.8) 04/02/22 19:39 Metamyelocytes % 0 % 04/02/22 19:39 Myelocytes % 0 % 04/02/22 19:39 Promyelocytes % 0 % 04/02/22 19:39 Blast Cells % 0 % 04/02/22 19:39 Nucleated RBC % Not Reportable 04/02/22 19:39 Seg Neutrophils # 12.7 K/mm3 (1.8-7.7) H 04/07/22 03:51 Seg Neutrophils # Man 13.4 K/mm3 (1.8-7.7) H 04/02/22 19:39 Band Neutrophils # 0.0 K/mm3 04/02/22 19:39 Lymphocytes # (Manual) 0.1 K/mm3 (1.2-5.4) L 04/02/22 19:39 Abs React Lymphs (Man) 0.0 K/mm3 04/02/22 19:39 Monocytes # (Manual) 0.7 K/mm3 (0.0-0.8) 04/02/22 19:39 Eosinophils # (Manual) 0.0 K/mm3 (0.0-0.4) 04/02/22 19:39 Basophils # (Manual) 0.0 K/mm3 (0.0-0.1) 04/02/22 19:39 Metamyelocytes # 0.0 K/mm3 04/02/22 19:39 Myelocytes # 0.0 K/mm3 04/02/22 19:39 Promyelocytes # 0.0 K/mm3 04/02/22 19:39 Blast Cells # 0.0 K/mm3 04/02/22 19:39 WBC Morphology Not Reportable 04/02/22 19:39 Hypersegmented Neuts Not Reportable 04/02/22 19:39 Hyposegmented Neuts Not Reportable 04/02/22 19:39 Hypogranular Neuts Not Reportable 04/02/22 19:39 Smudge Cells Not Reportable 04/02/22 19:39 Toxic Granulation Not Reportable 04/02/22 19:39 Toxic Vacuolation Not Reportable 04/02/22 19:39 Dohle Bodies Not Reportable 04/02/22 19:39 Pelger-Huet Anomaly Not Reportable 04/02/22 19:39 Terry Rods Not Reportable 04/02/22 19:39 Platelet Estimate Consistent w auto 04/02/22 19:39 Clumped Platelets Not Reportable 04/02/22 19:39 Plt Clumps, EDTA Not Reportable 04/02/22 19:39 Large Platelets Not Reportable 04/02/22 19:39 Giant Platelets Not Reportable 04/02/22 19:39 Platelet Satelliting Not Reportable 04/02/22 19:39 Plt Morphology Comment Not Reportable 04/02/22 19:39 RBC Morphology Not Reportable 04/02/22 19:39 Dimorphic RBCs Not Reportable 04/02/22 19:39 Polychromasia Not Reportable 04/02/22 19:39 Hypochromasia Not Reportable 04/02/22 19:39 Poikilocytosis Not Reportable 04/02/22 19:39 Anisocytosis 1+ 04/02/22 19:39 Microcytosis Not Reportable 04/02/22 19:39 Macrocytosis Not Reportable 04/02/22 19:39 Spherocytes Not Reportable 04/02/22 19:39 Pappenheimer Bodies Not Reportable 04/02/22 19:39 Sickle Cells Not Reportable 04/02/22 19:39 Target Cells Not Reportable 04/02/22 19:39 Tear Drop Cells Not Reportable 04/02/22 19:39 Ovalocytes Not Reportable 04/02/22 19:39 Helmet Cells Not Reportable 04/02/22 19:39 [place] Bodies Not Reportable 04/02/22 19:39 [place] Rings Not Reportable 04/02/22 19:39 [place] Cells Not Reportable 04/02/22 19:39 Bite Cells Not Reportable 04/02/22 19:39 Crenated Cell Not Reportable 04/02/22 19:39 Elliptocytes Not Reportable 04/02/22 19:39 Acanthocytes (Spur) Not Reportable 04/02/22 19:39 Rouleaux Not Reportable 04/02/22 19:39 Hemoglobin C Crystals Not Reportable 04/02/22 19:39 Schistocytes Not Reportable 04/02/22 19:39 Malaria parasites Not Reportable 04/02/22 19:39 [place] Bodies Not Reportable 04/02/22 19:39 Hem Pathologist Commnt No 04/02/22 19:39 PT 13.6 Sec. (12.2-14.9) 04/13/22 04:30 INR 0.94 (0.87-1.13) 04/13/22 04:30 APTT 35.7 Sec. (24.2-36.6) 04/07/22 03:51 ABG pH 7.369 pH Units (7.350-7.450) 04/23/22 09:40 ABG pCO2 86.8 mm Hg 04/23/22 09:40 ABG pO2 56.8 mm Hg (80.0-90.0) L 04/23/22 09:40 ABG HCO3 49.0 mmol/L (20.0-26.0) H 04/23/22 09:40 ABG O2 Saturation 90.9 % (95.0-99.0) L 04/23/22 09:40 ABG O2 Content 10.6 (0.0-44) 04/23/22 09:40 ABG Base Excess 20.8 mmol/L (-2.0-3.0) H 04/23/22 09:40 ABG Hemoglobin 8.4 gm/dl (14.0-18.0) L 04/23/22 09:40 ABG Carboxyhemoglobin 1.2 % (0.0-5.0) 04/23/22 09:40 ABG Methemoglobin 0.3 % (0.0-1.5) 04/23/22 09:40 Oxyhemoglobin 89.5 % (95.0-99.0) L 04/23/22 09:40 FiO2 60 % 04/23/22 09:40 Sodium 140 mmol/L (137-145) 04/22/22 05:03 Potassium 4.6 mmol/L (3.6-5.0) 04/22/22 05:03 Chloride 93.9 mmol/L (98-107) L 04/22/22 05:03 Carbon Dioxide 43 mmol/L (22-30) H* 04/22/22 05:03 Anion Gap 8 mmol/L 04/22/22 05:03 BUN 23 mg/dL (9-20) H 04/22/22 05:03 Creatinine < 0.2 mg/dL (0.8-1.3) L 04/22/22 05:03 Estimated GFR > 60 ml/min 04/22/22 05:03 BUN/Creatinine Ratio 115 % 04/22/22 05:03 Glucose 137 mg/dL (75-100) H 04/22/22 05:03 POC Glucose 128 mg/dL (70-105) H 04/20/22 11:40 Lactic Acid 1.90 mmol/L (0.7-2.0) 04/02/22 19:39 Calcium 8.5 mg/dL (8.4-10.2) 04/22/22 05:03 Phosphorus 2.50 mg/dL (2.5-4.5) 04/17/22 04:36 Magnesium 2.10 mg/dL (1.7-2.3) 04/17/22 04:36 Total Bilirubin 0.80 mg/dL (0.1-1.2) 04/02/22 19:39 AST 15 units/L (5-40) 04/02/22 19:39 ALT 9 units/L (7-56) 04/02/22 19:39 Alkaline Phosphatase 43 units/L (35-129) 04/02/22 19:39 Total Creatine Kinase 46 units/L (55-170) L 04/08/22 17:47 CK-MB (CK-2) 2.6 ng/mL (0.0-4.0) 04/08/22 17:47 CK-MB (CK-2) Rel Index 5.6 (0-4) H 04/08/22 17:47 Troponin T 0.031 ng/mL (0.00-0.029) H 04/08/22 17:47 C-Reactive Protein 31.60 mg/dL (0.00-1.30) H 04/04/22 04:18 Total Protein 4.6 g/dL (6.3-8.2) L 04/02/22 19:39 Albumin 2.7 g/dL (3.9-5) L 04/02/22 19:39 Albumin/Globulin Ratio 1.4 % 04/02/22 19:39 Triglycerides 80 mg/dL (2-149) 04/02/22 19:39 Cholesterol 94 mg/dL (50-199) 04/02/22 19:39 LDL Cholesterol Direct 27 mg/dL (50-130) L 04/02/22 19:39 HDL Cholesterol 47 mg/dL (40-59) 04/02/22 19:39 Cholesterol/HDL Ratio 2.00 % 04/02/22 19:39 Procalcitonin 0.08 ng/mL (<0.15) 04/04/22 04:18 Urine Color [place] (Yellow) 04/05/22 17:45 Urine Turbidity Cloudy (Clear) 04/05/22 17:45 Urine pH 5.0 (5.0-7.0) 04/05/22 17:45 Ur Specific [place] 1.021 (1.003-1.030) 04/05/22 17:45 Urine Protein 30 mg/dl mg/dL (Negative) 04/05/22 17:45 Urine Glucose (UA) Neg mg/dL (Negative) 04/05/22 17:45 Urine Ketones Tr mg/dL (Negative) 04/05/22 17:45 Urine Blood Sm (Negative) 04/05/22 17:45 Urine Nitrite Neg (Negative) 04/05/22 17:45 Urine Bilirubin Neg (Negative) 04/05/22 17:45 Urine Urobilinogen < 2.0 mg/dL (<2.0) 04/05/22 17:45 Ur Leukocyte Esterase Tr (Negative) 04/05/22 17:45 Urine WBC (Auto) 8.0 /HPF (0.0-6.0) H 04/05/22 17:45 Urine RBC (Auto) 3.0 /HPF (0.0-6.0) 04/05/22 17:45 U Epithel Cells (Auto) 2.0 /HPF (0-13.0) 04/05/22 17:45 Urine Bacteria (Auto) 1+ /HPF (Negative) 04/02/22 Unknown Hyaline Casts 1 /LPF 04/05/22 17:45 Urine Mucus 3+ /HPF 04/05/22 17:45 Nasal Screen MRSA (PCR) Negative (Negative) 04/05/22 12:37 Vancomycin Trough 6.0 ug/mL (5.0-20.0) 04/05/22 18:53 Coronavirus (PCR) Negative (Negative) 04/07/22 14:52 Perez/IV: Voiding Method Condom Catheter Active Medications - Current Medications Current Medications: Generic Name Dose Route Start Last Admin Trade Name Freq PRN Reason Stop Dose Admin Acetaminophen 650 mg 04/02/22 23:53 04/21/22 16:23 Acetaminophen 325 Mg Tab PO 650 mg Q6H PRN Administration Pain MILD(1-3)/Fever >100.5/FAITH Acetylcysteine 200 mg 04/21/22 16:00 04/23/22 16:11 Acetylcysteine 20% 200 Mg/1 Ml *For Inhalation Use* INHALATION Not Given Q8HRT SEGUNDO Albuterol 2.5 mg 04/06/22 16:00 04/23/22 16:10 Albuterol 2.5 Mg/3 Ml Nebu IH 2.5 mg Q8HRT SEGUNDO Administration Bisacodyl 10 mg 04/07/22 09:44 04/12/22 10:06 Bisacodyl 10 Mg Rect Supp [place] 10 mg QDAY PRN Administration Constipation Dextrose 50 ml 04/06/22 17:54 Dextrose 50% In Water (25gm) 50 Ml Syringe IV Q30MIN PRN Hypoglycemia Protocol Docusate Sodium 100 mg 04/03/22 15:00 04/23/22 09:10 Docusate Sodium 100 Mg/10 Ml Oral Liqd PO Not Given BID SEGUNDO Famotidine 20 mg 04/06/22 10:00 04/23/22 09:10 Famotidine 20 Mg Tab FEEDTUBE 20 mg BID SEGUNDO Administration Fentanyl 50 mcg 04/04/22 15:56 04/22/22 10:30 Fentanyl 100 Mcg/2 Ml Inj IV 50 mcg Q2HR PRN Administration For CPOT of greater than 3 Heparin Sodium (Porcine) 5,000 unit 04/03/22 06:00 04/23/22 13:07 Heparin 5,000 Unit/1 Ml Vial SUB-Q 5,000 unit Q8HR SEGUNDO Administration Insulin Human Regular 0 units 04/06/22 18:00 04/23/22 01:37 Insulin Regular, Human 100 Units/1 Ml SUB-Q Not Given Q6H [facility] Protocol Magnesium Hydroxide 30 ml 04/02/22 23:53 Magnesium Hydroxide (Mom) Oral Liqd Udc PO Q4H PRN Constipation Metoprolol Tartrate 25 mg 04/16/22 18:00 04/23/22 13:08 Metoprolol Tartrate 25 Mg Tab FEEDTUBE 25 mg Q6HR SEGUNDO Administration Ondansetron HCl 4 mg 04/02/22 23:53 Ondansetron 4 Mg/2 Ml Inj IV Q8H PRN Nausea And Vomiting Polyethylene Glycol 17 gm 04/08/22 10:00 04/23/22 09:10 Polyethylene Glycol 3350 17 Gm Powder PO Not Given QDAY SEGUNDO Quetiapine Fumarate 50 mg 04/22/22 10:00 04/23/22 09:10 Quetiapine 25 Mg Tab PO 50 mg BID SEGUNDO Administration Senna 17.6 mg 04/03/22 22:00 04/23/22 09:11 Sennosides Oral Liqd 8.8 Mg/5 Ml Oral Liqd PO Not Given Q12HR SEGUNDO Sodium Chloride 10 ml 04/03/22 10:00 04/23/22 13:08 Sodium Chloride 0.9% 10 Ml Flush Syringe IV 10 ml BID SEGUNDO Administration Sodium Chloride 10 ml 04/02/22 23:53 Sodium Chloride 0.9% 10 Ml Flush Syringe IV PRN PRN LINE FLUSH Nutrition/Malnutrition Assess - Dietary Evaluation Nutrition/Malnutrition Findings: Nutrition Notes Start: 04/04/22 13:13 Freq: Status: Active Protocol: Document 04/20/22 11:36 COLLEEN (Rec: 04/20/22 12:00 COLLEEN [email or web address]) Nutrition Notes Initial or Follow up Reassessment Current Diagnosis Coronary Artery Disease, Respiratory Failure, Malnutrition Other Pertinent Diagnosis HCAP, HFpEF, ALS, Pleural Effusion, R-Lung Collapse, Hypotension, ... Current Diet TF-Vital AF 1.2 Inderjit @ 50 ml/hr (since D 04/15). Labs/Tests 04/19: Cl 96.2, CO2 40, BUN 24 , Crea <0.2, Glu 125, Ca 8.3. Pertinent Medications 04/20: Nutritionally unremarkable. Height 5 ft 4.8 in Weight 46.8 kg [place] Body Weight (kg) 61.27 BMI 17.2 Weight change and time frame No body weight change reported in 2 weeks. Weight Status Underweight Subjective/Other Information RD consult for routine F/U on TF tolerance/continuation. TF continues as prescribed, and well tolerated, according to RN notes. RN note on 04/20/22 06:13: No acute changes throughout night . Trach intact to vent, with Fi02 @ 55%. Peg intact with patient tolerating tube feedings as ordered. Vitals stable. Currently 93/53, 93, 14, 95%. Pt continues on Mechanical ventilation, O2 saturation @ 96%, according to Physical Assessment Histroy notes. Pt presents constipation, according to Physical Assessment Histroy notes. Tracheostomy and PEG tube placement on 04/15, well tolerated, according to Progress notes. LTAC placement still pending. Percent of energy/protein needs met: Prescribed TF-Vital AF 1.2 Inderjit @ 50 ml/hr provides for energy/protein needs (1,450 Kcal/91 g) during LOS, 98% Kcal; 100% AA. Burn Absent Trauma Absent GI Symptoms Constipation Difficulty In Swallowing,Chewing Food Allergy No Skin Integrity/Comment Sacral open wound. Current % PO Other Minimum of two criteria No #1 Nutrition Diagnosis Inadequate oral intake Diagnosis Progress(for reassessment Continues documentation) Is patient on ventilator? Yes Is Patient Ambulatory and/or Out of Bed No REE-([facility]-confined to bed) [phone] Calculation Used for Recommendations [facility] Additional Notes Protein: 1.2-2 g/Kg IBW; 73- 122 g/day. Fluids: 1 ml/Kcal, or as per MD. Nutrition Intervention Nutrition Support: Continue TF-Vital AF 1.2 Inderjit @ 50 ml/hr. Flush: 80 ml water Q 4 hr, or as per MD. Kcal 1,450 Protein (gm) 91 Carbohydrates (gm) 134 Fat (gm) 65 Fluid (mL) 980 Fiber (gm) 6 % RDI: 98% Kcal; 100% AA. Goal #1 Provide at least 75% of energy /protein needs through Enteral Feeding during LOS. Follow-Up By: 04/27/22 Additional Comments Continue monitoring TF tolerance and BM. <NORM GRAYSON - Last Filed: 04/28/22 14:37> Assessment and Plan Assessment and plan: I saw and evaluated the patient. Discussed with the nurse practitioner and agree with their findings and plan as documented in this note. Hospitalist Physical - Constitutional Vitals: Temp Pulse Resp BP Pulse Ox 99.1 F 109 H 15 111/66 100 04/28/22 11:43 04/28/22 13:00 04/28/22 13:00 04/28/22 13:00 04/28/22 13:00 HEART Score - HEART Score Troponin: Troponin T 0.031 ng/mL (0.00-0.029) H 04/08/22 17:47 Results - Labs CBC & Chem 7: 04/26/22 04:22 04/26/22 04:22 Labs: Laboratory Last Values WBC 10.0 K/mm3 (4.5-11.0) 04/26/22 04:22 RBC 2.88 M/mm3 (3.65-5.03) L 04/26/22 04:22 Hgb 8.9 gm/dl (11.8-15.2) L 04/26/22 04:22 Hct 26.8 % (35.5-45.6) L 04/26/22 04:22 MCV 93 fl (84-94) 04/26/22 04:22 MCH 31 pg (28-32) 04/26/22 04:22 MCHC 33 % (32-34) 04/26/22 04:22 RDW 13.8 % (13.2-15.2) 04/26/22 04:22 Plt Count 376 K/mm3 (140-440) 04/26/22 04:22 Lymph % (Auto) 4.3 % (13.4-35.0) L 04/07/22 03:51 [place] % (Auto) 8.8 % (0.0-7.3) H 04/07/22 03:51 Eos % (Auto) 0.1 % (0.0-4.3) 04/07/22 03:51 Baso % (Auto) 0.2 % (0.0-1.8) 04/07/22 03:51 Lymph # (Auto) 0.6 K/mm3 (1.2-5.4) L 04/07/22 03:51 [place] # (Auto) 1.3 K/mm3 (0.0-0.8) H 04/07/22 03:51 Eos # (Auto) 0.0 K/mm3 (0.0-0.4) 04/07/22 03:51 Baso # (Auto) 0.0 K/mm3 (0.0-0.1) 04/07/22 03:51 Add Manual Diff Complete 04/02/22 19:39 Total Counted 100 04/02/22 19:39 Seg Neutrophils % 86.6 % (40.0-70.0) H 04/07/22 03:51 Seg Neuts % (Manual) 94.0 % (40.0-70.0) H 04/02/22 19:39 Band Neutrophils % 0 % 04/02/22 19:39 Lymphocytes % (Manual) 1.0 % (13.4-35.0) L 04/02/22 19:39 Reactive Lymphs % (Man) 0 % 04/02/22 19:39 Monocytes % (Manual) 5.0 % (0.0-7.3) 04/02/22 19:39 Eosinophils % (Manual) 0 % (0.0-4.3) 04/02/22 19:39 Basophils % (Manual) 0 % (0.0-1.8) 04/02/22 19:39 Metamyelocytes % 0 % 04/02/22 19:39 Myelocytes % 0 % 04/02/22 19:39 Promyelocytes % 0 % 04/02/22 19:39 Blast Cells % 0 % 04/02/22 19:39 Nucleated RBC % Not Reportable 04/02/22 19:39 Seg Neutrophils # 12.7 K/mm3 (1.8-7.7) H 04/07/22 03:51 Seg Neutrophils # Man 13.4 K/mm3 (1.8-7.7) H 04/02/22 19:39 Band Neutrophils # 0.0 K/mm3 04/02/22 19:39 Lymphocytes # (Manual) 0.1 K/mm3 (1.2-5.4) L 04/02/22 19:39 Abs React Lymphs (Man) 0.0 K/mm3 04/02/22 19:39 Monocytes # (Manual) 0.7 K/mm3 (0.0-0.8) 04/02/22 19:39 Eosinophils # (Manual) 0.0 K/mm3 (0.0-0.4) 04/02/22 19:39 Basophils # (Manual) 0.0 K/mm3 (0.0-0.1) 04/02/22 19:39 Metamyelocytes # 0.0 K/mm3 04/02/22 19:39 Myelocytes # 0.0 K/mm3 04/02/22 19:39 Promyelocytes # 0.0 K/mm3 04/02/22 19:39 Blast Cells # 0.0 K/mm3 04/02/22 19:39 WBC Morphology Not Reportable 04/02/22 19:39 Hypersegmented Neuts Not Reportable 04/02/22 19:39 Hyposegmented Neuts Not Reportable 04/02/22 19:39 Hypogranular Neuts Not Reportable 04/02/22 19:39 Smudge Cells Not Reportable 04/02/22 19:39 Toxic Granulation Not Reportable 04/02/22 19:39 Toxic Vacuolation Not Reportable 04/02/22 19:39 Dohle Bodies Not Reportable 04/02/22 19:39 Pelger-Huet Anomaly Not Reportable 04/02/22 19:39 Terry Rods Not Reportable 04/02/22 19:39 Platelet Estimate Consistent w auto 04/02/22 19:39 Clumped Platelets Not Reportable 04/02/22 19:39 Plt Clumps, EDTA Not Reportable 04/02/22 19:39 Large Platelets Not Reportable 04/02/22 19:39 Giant Platelets Not Reportable 04/02/22 19:39 Platelet Satelliting Not Reportable 04/02/22 19:39 Plt Morphology Comment Not Reportable 04/02/22 19:39 RBC Morphology Not Reportable 04/02/22 19:39 Dimorphic RBCs Not Reportable 04/02/22 19:39 Polychromasia Not Reportable 04/02/22 19:39 Hypochromasia Not Reportable 04/02/22 19:39 Poikilocytosis Not Reportable 04/02/22 19:39 Anisocytosis 1+ 04/02/22 19:39 Microcytosis Not Reportable 04/02/22 19:39 Macrocytosis Not Reportable 04/02/22 19:39 Spherocytes Not Reportable 04/02/22 19:39 Pappenheimer Bodies Not Reportable 04/02/22 19:39 Sickle Cells Not Reportable 04/02/22 19:39 Target Cells Not Reportable 04/02/22 19:39 Tear Drop Cells Not Reportable 04/02/22 19:39 Ovalocytes Not Reportable 04/02/22 19:39 Helmet Cells Not Reportable 04/02/22 19:39 [place] Bodies Not Reportable 04/02/22 19:39 [place] Rings Not Reportable 04/02/22 19:39 [place] Cells Not Reportable 04/02/22 19:39 Bite Cells Not Reportable 04/02/22 19:39 Crenated Cell Not Reportable 04/02/22 19:39 Elliptocytes Not Reportable 04/02/22 19:39 Acanthocytes (Spur) Not Reportable 04/02/22 19:39 Rouleaux Not Reportable 04/02/22 19:39 Hemoglobin C Crystals Not Reportable 04/02/22 19:39 Schistocytes Not Reportable 04/02/22 19:39 Malaria parasites Not Reportable 04/02/22 19:39 [place] Bodies Not Reportable 04/02/22 19:39 Hem Pathologist Commnt No 04/02/22 19:39 PT 13.6 Sec. (12.2-14.9) 04/13/22 04:30 INR 0.94 (0.87-1.13) 04/13/22 04:30 APTT 35.7 Sec. (24.2-36.6) 04/07/22 03:51 ABG pH 7.457 pH Units (7.350-7.450) H 04/25/22 09:00 ABG pCO2 61.7 mm Hg 04/25/22 09:00 ABG pO2 66.7 mm Hg (80.0-90.0) L 04/25/22 09:00 ABG HCO3 42.6 mmol/L (20.0-26.0) H 04/25/22 09:00 ABG O2 Saturation 95.7 % (95.0-99.0) 04/25/22 09:00 ABG O2 Content 20.0 (0.0-44) 04/25/22 09:00 ABG Base Excess 15.3 mmol/L (-2.0-3.0) H 04/25/22 09:00 ABG Hemoglobin 8.8 gm/dl (14.0-18.0) L 04/25/22 09:00 ABG Carboxyhemoglobin 1.3 % (0.0-5.0) 04/25/22 09:00 ABG Methemoglobin 0.4 % (0.0-1.5) 04/25/22 09:00 Oxyhemoglobin 94.1 % (95.0-99.0) L 04/25/22 09:00 FiO2 35 % 04/25/22 09:00 Sodium 137 mmol/L (137-145) 04/26/22 04:22 Potassium 4.3 mmol/L (3.6-5.0) 04/26/22 04:22 Chloride 93.2 mmol/L (98-107) L 04/26/22 04:22 Carbon Dioxide 37 mmol/L (22-30) H 04/26/22 04:22 Anion Gap 11 mmol/L 04/26/22 04:22 BUN 16 mg/dL (9-20) 04/26/22 04:22 Creatinine < 0.2 mg/dL (0.8-1.3) L 04/26/22 04:22 Estimated GFR > 60 ml/min 04/26/22 04:22 BUN/Creatinine Ratio 80 % 04/26/22 04:22 Glucose 114 mg/dL (75-100) H 04/26/22 04:22 POC Glucose 128 mg/dL (70-105) H 04/20/22 11:40 Lactic Acid 1.90 mmol/L (0.7-2.0) 04/02/22 19:39 Calcium 8.5 mg/dL (8.4-10.2) 04/26/22 04:22 Phosphorus 3.60 mg/dL (2.5-4.5) 04/26/22 04:22 Magnesium 1.90 mg/dL (1.7-2.3) 04/26/22 04:22 Total Bilirubin 0.80 mg/dL (0.1-1.2) 04/02/22 19:39 AST 15 units/L (5-40) 04/02/22 19:39 ALT 9 units/L (7-56) 04/02/22 19:39 Alkaline Phosphatase 43 units/L (35-129) 04/02/22 19:39 Total Creatine Kinase 46 units/L (55-170) L 04/08/22 17:47 CK-MB (CK-2) 2.6 ng/mL (0.0-4.0) 04/08/22 17:47 CK-MB (CK-2) Rel Index 5.6 (0-4) H 04/08/22 17:47 Troponin T 0.031 ng/mL (0.00-0.029) H 04/08/22 17:47 C-Reactive Protein 31.60 mg/dL (0.00-1.30) H 04/04/22 04:18 Total Protein 4.6 g/dL (6.3-8.2) L 04/02/22 19:39 Albumin 2.7 g/dL (3.9-5) L 04/02/22 19:39 Albumin/Globulin Ratio 1.4 % 04/02/22 19:39 Triglycerides 80 mg/dL (2-149) 04/02/22 19:39 Cholesterol 94 mg/dL (50-199) 04/02/22 19:39 LDL Cholesterol Direct 27 mg/dL (50-130) L 04/02/22 19:39 HDL Cholesterol 47 mg/dL (40-59) 04/02/22 19:39 Cholesterol/HDL Ratio 2.00 % 04/02/22 19:39 Procalcitonin 0.08 ng/mL (<0.15) 04/04/22 04:18 Urine Color [place] (Yellow) 04/05/22 17:45 Urine Turbidity Cloudy (Clear) 04/05/22 17:45 Urine pH 5.0 (5.0-7.0) 04/05/22 17:45 Ur Specific [place] 1.021 (1.003-1.030) 04/05/22 17:45 Urine Protein 30 mg/dl mg/dL (Negative) 04/05/22 17:45 Urine Glucose (UA) Neg mg/dL (Negative) 04/05/22 17:45 Urine Ketones Tr mg/dL (Negative) 04/05/22 17:45 Urine Blood Sm (Negative) 04/05/22 17:45 Urine Nitrite Neg (Negative) 04/05/22 17:45 Urine Bilirubin Neg (Negative) 04/05/22 17:45 Urine Urobilinogen < 2.0 mg/dL (<2.0) 04/05/22 17:45 Ur Leukocyte Esterase Tr (Negative) 04/05/22 17:45 Urine WBC (Auto) 8.0 /HPF (0.0-6.0) H 04/05/22 17:45 Urine RBC (Auto) 3.0 /HPF (0.0-6.0) 04/05/22 17:45 U Epithel Cells (Auto) 2.0 /HPF (0-13.0) 04/05/22 17:45 Urine Bacteria (Auto) 1+ /HPF (Negative) 04/02/22 Unknown Hyaline Casts 1 /LPF 04/05/22 17:45 Urine Mucus 3+ /HPF 04/05/22 17:45 Nasal Screen MRSA (PCR) Negative (Negative) 04/05/22 12:37 Vancomycin Trough 6.0 ug/mL (5.0-20.0) 04/05/22 18:53 Coronavirus (PCR) Negative (Negative) 04/07/22 14:52 Perez/IV: Voiding Method Condom Catheter Active Medications - Current Medications Current Medications: Generic Name Dose Route Start Last Admin Trade Name Freq PRN Reason Stop Dose Admin Acetaminophen 650 mg 04/02/22 23:53 04/21/22 16:23 Acetaminophen 325 Mg Tab PO 650 mg Q6H PRN Administration Pain MILD(1-3)/Fever >100.5/FAITH Acetylcysteine 200 mg 04/21/22 16:00 04/28/22 07:15 Acetylcysteine 20% 200 Mg/1 Ml *For Inhalation Use* INHALATION 200 mg Q8HRT SEGUNDO Administration Albuterol 2.5 mg 04/06/22 16:00 04/28/22 07:14 Albuterol 2.5 Mg/3 Ml Nebu IH 2.5 mg Q8HRT SEGUNDO Administration Bisacodyl 10 mg 04/07/22 09:44 04/12/22 10:06 Bisacodyl 10 Mg Rect Supp [place] 10 mg QDAY PRN Administration Constipation Dextrose 50 ml 04/06/22 17:54 Dextrose 50% In Water (25gm) 50 Ml Syringe IV Q30MIN PRN Hypoglycemia Protocol Docusate Sodium 100 mg 04/28/22 10:00 04/28/22 09:24 Docusate Sodium 100 Mg/10 Ml Oral Liqd FEEDTUBE 100 mg BID SEGUNDO Administration Famotidine 20 mg 04/06/22 10:00 04/28/22 09:24 Famotidine 20 Mg Tab FEEDTUBE 20 mg BID SEGUNDO Administration Fentanyl 50 mcg 04/04/22 15:56 04/23/22 17:00 Fentanyl 100 Mcg/2 Ml Inj IV 50 mcg Q2HR PRN Administration For CPOT of greater than 3 Heparin Sodium (Porcine) 5,000 unit 04/03/22 06:00 04/28/22 13:38 Heparin 5,000 Unit/1 Ml Vial SUB-Q 5,000 unit Q8HR SEGUNDO Administration Insulin Human Regular 0 units 04/06/22 18:00 04/28/22 13:39 Insulin Regular, Human 100 Units/1 Ml SUB-Q Not Given Q6H [facility] Protocol Magnesium Hydroxide 30 ml 04/02/22 23:53 Magnesium Hydroxide (Mom) Oral Liqd Udc PO Q4H PRN Constipation Metoprolol Tartrate 25 mg 04/16/22 18:00 04/28/22 12:25 Metoprolol Tartrate 25 Mg Tab FEEDTUBE 25 mg Q6HR SEGUNDO Administration Ondansetron HCl 4 mg 04/02/22 23:53 Ondansetron 4 Mg/2 Ml Inj IV Q8H PRN Nausea And Vomiting Polyethylene Glycol 17 gm 04/08/22 10:00 04/28/22 09:24 Polyethylene Glycol 3350 17 Gm Powder PO 17 gm QDAY SEGUNDO Administration Quetiapine Fumarate 50 mg 04/28/22 10:00 04/28/22 09:25 Quetiapine 25 Mg Tab FEEDTUBE 50 mg BID SEGUNDO Administration Senna 17.6 mg 04/28/22 10:00 04/28/22 09:24 Sennosides Oral Liqd 8.8 Mg/5 Ml Oral Liqd FEEDTUBE 17.6 mg Q12HR SEGUNDO Administration Sodium Chloride 10 ml 04/03/22 10:00 04/28/22 09:26 Sodium Chloride 0.9% 10 Ml Flush Syringe IV 10 ml BID SGEUNDO Administration Sodium Chloride 10 ml 04/02/22 23:53 Sodium Chloride 0.9% 10 Ml Flush Syringe IV PRN PRN LINE FLUSH Nutrition/Malnutrition Assess - Dietary Evaluation Nutrition/Malnutrition Findings: Nutrition Notes Start: 04/04/22 13:13 Freq: Status: Active Protocol: Document 04/27/22 11:53 COLLEEN (Rec: 04/27/22 12:21 COLLEEN [id number]) Nutrition Notes Initial or Follow up Reassessment Current Diagnosis Coronary Artery Disease, Decubitus(Pressure Ulcer), Sepsis,Respiratory Failure, Malnutrition Other Pertinent Diagnosis HCAP, HFpEF, ALS, Pleural Effusion, R-Lung Collapse, .. . Current Diet TF-Vital AF 1.2 Inderjit @ 50 ml/hr (since D 04/15). Labs/Tests 04/27: Cl 93.2, CO2 37, Crea < 0.2, Glu 114. Pertinent Medications 04/27: Nutritionally unremarkable. Height 5 ft 4.8 in Weight 46.8 kg [place] Body Weight (kg) 61.27 BMI 17.2 Weight change and time frame No body weight change reported in 3 weeks. Weight Status Underweight Subjective/Other Information RD consult for routine F/U on TF tolerance/continuation. TF continues as prescribed, and well tolerated, according to RN notes. Pt continues on Mechanical ventilation, O2 saturation @ 96%, according to Physical Assessment Histroy notes. Pt continues to present constipation, according to Physical Assessment Histroy notes. 3 failed attempts to wean Pt from Mechanical Ventilation, Pt is back to previous settings in [facility], according to RN notes. Pt is pending authorization for LTAC placement, according to Progress notes. Percent of energy/protein needs met: Prescribed TF-Vital AF 1.2 Inderjit @ 50 ml/hr provides for energy/protein needs (1,450 Kcal/91 g) during LOS, 98% Kcal; 100% AA. Burn Absent Trauma Absent GI Symptoms Constipation Difficulty In Swallowing,Chewing Food Allergy No Skin Integrity/Comment Sacral open wound. Current % PO Other Minimum of two criteria No #1 Nutrition Diagnosis Inadequate oral intake Diagnosis Progress(for reassessment Continues documentation) Is patient on ventilator? Yes Is Patient Ambulatory and/or Out of Bed No REE-([facility]-confined to bed) [phone] Calculation Used for Recommendations [facility] Additional Notes Protein: 1.2-2 g/Kg IBW; 73- 122 g/day. Fluids: 1 ml/Kcal, or as per MD. Nutrition Intervention Nutrition Support: Continue TF-Vital AF 1.2 Inderjit @ 50 ml/hr. Flush: 80 ml water Q 4 hr, or as per MD. Kcal 1,450 Protein (gm) 91 Carbohydrates (gm) 134 Fat (gm) 65 Fluid (mL) 980 Fiber (gm) 6 % RDI: 98% Kcal; 100% AA. Goal #1 Provide at least 75% of energy /protein needs through Enteral Feeding during LOS. Follow-Up By: 05/04/22 Additional Comments Continue monitoring TF tolerance and BM.
[2022-04-24] MEDS: ACETYLCYSTEINE 20% 200 MG/1 ML *FOR INHALATION USE INHALATION SCH ×3 (00:23→15:36)
[2022-04-24] MEDS: ALBUTEROL 2.5 MG/3 ML NEBU IH SCH ×3 (00:24→15:36)
[2022-04-24] MEDS: METOPROLOL TARTRATE 25 MG TAB FEEDTUBE SCH ×4 (01:52→17:56)
--- NOTE | 2022-04-24 02:56 | XRay Report ---
CHEST 1 VIEW INDICATION / CLINICAL INFORMATION: Atelectasis; Hypoxemia. COMPARISON: Chest x-ray 04/21/2022; CT chest March 26 06/26/2010 FINDINGS: SUPPORT DEVICES: Tracheostomy tube is stable. HEART / MEDIASTINUM: Heart size is within normal limits. Mediastinal contour demonstrates no signific ant abnormality. LUNGS / PLEURA: Interstitial and airspace opacities bilaterally within the mid and lower chest demons trate some improvement with better visualization left hemidiaphragm. Right-sided opacities suggest mi nimal change. BONES: No significant osseous abnormality. ADDITIONAL FINDINGS: No significant additional findings. IMPRESSION: 1. Interval partial clearing of opacities primarily within the left lung. Otherwise bilateral lung op acities are without significant change. Signer Name: Trae Mcfarland II, MD Signed: 04/24/2022 2:51 AM Workstation Name: [id number]
[2022-04-24 05:26] LABS: Hematocrit 25.7 % (35.5-45.6); Hemoglobin 8.4 gm/dl (11.8-15.2); Mean Corpuscular HGB Conc 33 % (32-34); Mean Corpuscular Volume 94 fl (84-94); Platelet Count 353 K/mm3 (140-440); Red Blood Count 2.74 M/mm3 (3.65-5.03); Red Cell Distribution Width 13.6 % (13.2-15.2)
[2022-04-24 05:32] LABS: Blood Urea Nitrogen 19 mg/dL (9-20); Calcium 8.5 mg/dL (8.4-10.2); Hemolysis Index 10
[2022-04-24 05:49] LABS: BUN/Creatinine Ratio 95
[2022-04-24] MEDS: HEPARIN 5,000 UNIT/1 ML VIAL SUB-Q SCH ×3 (06:02→22:28)
[2022-04-24] MEDS: INSULIN REGULAR, HUMAN 100 UNITS/1 ML SUB-Q SCH ×3 (08:05→17:55)
[2022-04-24] MEDS: FAMOTIDINE 20 MG TAB FEEDTUBE SCH ×2 (09:17→22:27)
[2022-04-24] MEDS: DOCUSATE SODIUM 100 MG/10 ML ORAL LIQD PO SCH (09:17)
[2022-04-24] MEDS: POLYETHYLENE GLYCOL 3350 17 GM POWDER PO SCH (09:17)
[2022-04-24] MEDS: SENNOSIDES ORAL LIQD 8.8 MG/5 ML ORAL LIQD PO SCH (09:17)
[2022-04-24] MEDS: QUEtiapine 25 MG TAB PO SCH ×2 (09:17→22:27)
--- NOTE | 2022-04-24 09:41 | Progress Note ---
Assessment and Plan - Patient Problems (1) Respiratory failure Current Visit: Yes Status: Acute Plan to address problem: Patient presented with acute respiratory failure, with chest x-ray showing total whiteout of the right lung, due to acute pneumonia, large right pleural effusion and collapse of the right lung. Continue supportive management, antibiotics. (2) Acute coronary syndrome Current Visit: Yes Status: Acute Plan to address problem: The patient's interval ECGs while in the ICU showed dynamic changes of anterior wall ischemia or infarction. Patient has severe comorbidities including progressive total paralysis of ALS, and intercurrent respiratory failure with large right pleural effusion and total collapse of the right lung. Currently assessed as a poor candidate for aggressive cardiac management due to the multiple severe acute and chronic comorbidities. He has been placed on conservative, empiric coronary artery disease medical therapy. A trach PEG procedure has been completed, discharge planning for longterm facility placement is in progress. Subjective Date of service: 04/24/22 Principal diagnosis: Ac and ch hypercapnic and hypoxemic Resp Failure; ALS; HCAP; Sepsis; NSTEMI Interval history: Patient is sedated, on the ventilator via tracheostomy. On threat monitoring analyst, there is a stable sinus rhythm. Objective Vital Signs Temp Pulse Pulse Pulse Resp Resp BP 04/24/22 09:00 85 14 114/69 04/24/22 08:00 97.8 F 76 74 14 114/64 04/24/22 07:20 82 14 114/64 04/24/22 07:00 83 14 117/71 04/24/22 06:02 85 134/76 04/24/22 06:00 83 15 134/76 04/24/22 05:17 116/64 04/24/22 05:00 129/82 04/24/22 04:32 97 H 127/79 04/24/22 04:00 99.8 F H 83 86 14 120/70 04/24/22 03:00 83 14 114/63 04/24/22 02:00 110 H 15 143/83 04/24/22 01:52 111 H 142/70 04/24/22 01:00 87 15 128/73 04/24/22 00:27 91 H 111/69 04/24/22 00:00 99.1 F 88 88 17 115/68 04/23/22 23:00 86 15 119/71 04/23/22 22:00 103 H 14 122/81 04/23/22 21:00 94 H 14 129/78 04/23/22 20:09 82 116/64 04/23/22 20:00 86 90 14 116/64 04/23/22 19:36 98.4 F 04/23/22 19:20 91 H 14 107/61 04/23/22 19:00 86 14 107/61 04/23/22 18:00 95 H 16 120/67 04/23/22 17:36 103 H 141/78 04/23/22 17:00 90 12 129/73 04/23/22 16:10 102 H 16 04/23/22 16:00 98.9 F 84 14 128/79 04/23/22 15:10 91 H 90 14 121/78 04/23/22 15:00 96 H 17 127/81 04/23/22 14:00 83 16 124/70 04/23/22 13:08 95 H 122/75 04/23/22 13:00 94 H 14 122/75 04/23/22 12:05 20 04/23/22 12:00 98.7 F 95 H 14 122/73 04/23/22 11:30 97 H 123/73 04/23/22 11:00 83 14 118/64 04/23/22 10:00 90 14 104/58 Pulse Ox Pulse Ox 04/24/22 09:00 98 04/24/22 08:00 98 04/24/22 07:20 99 99 04/24/22 07:00 92 04/24/22 06:02 04/24/22 06:00 93 04/24/22 05:17 93 04/24/22 05:00 89 04/24/22 04:32 98 98 04/24/22 04:00 96 04/24/22 03:00 97 04/24/22 02:00 83 L 04/24/22 01:52 04/24/22 01:00 97 04/24/22 00:27 96 04/24/22 00:00 91 04/23/22 23:00 87 04/23/22 22:00 95 04/23/22 21:00 95 04/23/22 20:09 98 04/23/22 20:00 97 04/23/22 19:36 04/23/22 19:20 99 04/23/22 19:00 99 06/17/22 18:00 85 04/23/22 17:36 04/23/22 17:00 98 04/23/22 16:10 98 04/23/22 16:00 95 04/23/22 15:10 96 96 04/23/22 15:00 96 04/23/22 14:00 91 04/23/22 13:08 04/23/22 13:00 92 04/23/22 12:05 98 04/23/22 12:00 92 04/23/22 11:30 98 04/23/22 11:00 92 04/23/22 10:00 97 - Physical Examination General: Other (On the vent via tracheostomy) HEENT: Positive: PERRL, Normocephaly, Other (ET-tube in place) Neck: Positive: neck supple, trachea midline (intubated). Negative: JVD/HJR Cardiac: Positive: Reg Rate and Rhythm Lungs: Positive: Decreased Breath Sounds Neuro: Positive: Weakness (Generalized myopathy, patient with ALS), Other (On the vent via tracheostomy) Abdomen: Positive: Soft Skin: Positive: Clear Extremities: Present: Other (TR.EDEMA). Absent: edema (NO) - Labs and Meds CBC 04/24/22 Range/Units 04:29 WBC 14.4 H (4.5-11.0) K/mm3 RBC 2.74 L (3.65-5.03) M/mm3 Hgb 8.4 L (11.8-15.2) gm/dl Hct 25.7 L (35.5-45.6) % Plt Count 353 (140-440) K/mm3 Comprehensive Metabolic Panel 04/24/22 Range/Units 04:29 Sodium 137 (137-145) mmol/L Potassium 4.5 (3.6-5.0) mmol/L Chloride 90.7 L (98-107) mmol/L Carbon Dioxide 40 H (22-30) mmol/L BUN 19 (9-20) mg/dL Creatinine < 0.2 L (0.8-1.3) mg/dL Glucose 133 H (75-100) mg/dL Calcium 8.5 (8.4-10.2) mg/dL - Allied health notes Allied health notes reviewed: nursing
--- NOTE | 2022-04-24 14:07 | Progress Note ---
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 Protein calorie malnutrition Acute Bronchopneumonia HCAP Hypotension NSTEMI Hypernatremia Acute Metabolic Encephalopathy H/o Amyotrophic Lateral Sclerosis Nonverbal at Baseline Thrombocytopenia Protein Caloric Malnutrition Constipation (suspect transient and persistent atelectasis responsible for desaturations) - FiO2 reduced to 45% - keep peep @ 12 for now - bronchoscopy if develops large volume atelectasis - keep increase peep at 12 for alveolar recruitment / to prevent de-recruitment - repeat ABG in am - no weaning today re: hypoxemia - continue care as below otherwise; - continue mucomyst nebs for thick tenacious secretions - continue scheduled CPT - continue Seroquel for anxiolysis / delirium - continue bronchodilators with pulmonary hygiene per RT - Daily SAT and SBT assessment as tolerated - continue to wean supplemental oxygen for target O2 sat's > 90% acutely - VAP bundle addressed - continue lung protective strategies - wean per pulmonary driven protocols otherwise - continue accuchecks with glycemic control per SSI (While critically ill target blood glucose of 140-180 mg/dL; avoid hypoglycemia) - sedation prn for target RASS 0 to -1 - avoid nephrotoxins, renally dose all medications - continue to avoid benzodiazepine's, reduce the possibility of delirium - AB's per ID rec's - prn analgesia per CPOT score - Maintenance of sleep-wake cycle, avoid delirium - continue enteral nutritional support at goal rate as tolerated - G.I. & VTE prophylaxis - PT/OT/ROM exercises - continue mobility protocols for pressure ulcer prophylaxis - Monitor hemodynamics closely - continue other care per attending / other consultants - discharge planning ongoing concurrently COVID SPECIFIC INTERVENTIONS - test pending .... Re-evaluate in am & prn CONDITION: CRITICAL PROGNOSIS: GUARDED CODE STATUS: FULL CODE The high probability of a clinically significant, sudden or life-threatening deterioration of the [respiratory, cardiovascular & neurologic] system(s) required my full and direct attention, intervention and personal management. The aggregate critical care time was [32] minutes without overlap. Time includes spent on; [x] Data Review and interpretation [x] Patient assessment and monitoring of vital signs [x] Documentation [x] Medication orders and management Subjective Date of service: 04/24/22 Principal diagnosis: Ac and ch hypercapnic and hypoxemic Resp Failure; ALS; HCAP; Sepsis; NSTEMI Interval history: Patient is seen today for: Acute and chronic hypercapnic and hypoxemic Respiratory Failure; ALS; HCAP; Sepsis; NSTEMI; AMS; Hypernatremia; Thrombocyt openia; Protein Caloric Malnutrition; Constipation Seen and examined at bedside; 24hour events reviewed; nursing and respiratory care staff consulted; no adverse overnight events reported to me; resting peacefully in bed; remains on MVS; FiO2 down to 55% with room to wean further; he is alert; no emesis or overt aspiration reported Objective Vital Signs - 12hr 04/24/22 04/24/22 04/24/22 03:00 04:00 04:32 Temperature 99.8 F H Pulse Rate 83 83 97 H Pulse Rate [ Anterior Bilateral Throughout] Pulse Rate [ 86 From Monitor] Respiratory 14 14 Rate Respiratory Rate [Anterior Bilateral Throughout] Blood Pressure 114/63 120/70 127/79 O2 Sat by Pulse 97 96 98 Oximetry O2 Sat by Pulse 98 Oximetry [ Assessment] 04/24/22 04/24/22 04/24/22 05:00 05:17 06:00 Temperature Pulse Rate 83 Pulse Rate [ Anterior Bilateral Throughout] Pulse Rate [ From Monitor] Respiratory 15 Rate Respiratory Rate [Anterior Bilateral Throughout] Blood Pressure 129/82 116/64 134/76 O2 Sat by Pulse 89 93 93 Oximetry O2 Sat by Pulse Oximetry [ Assessment] 04/24/22 04/24/22 04/24/22 06:02 07:00 07:20 Temperature Pulse Rate 85 83 Pulse Rate [ 82 Anterior Bilateral Throughout] Pulse Rate [ From Monitor] Respiratory 14 Rate Respiratory 14 Rate [Anterior Bilateral Throughout] Blood Pressure 134/76 117/71 114/64 O2 Sat by Pulse 92 99 Oximetry O2 Sat by Pulse 99 Oximetry [ Assessment] 04/24/22 04/24/22 04/24/22 08:00 09:00 10:00 Temperature 97.8 F Pulse Rate 76 85 84 Pulse Rate [ Anterior Bilateral Throughout] Pulse Rate [ 74 From Monitor] Respiratory 14 14 14 Rate Respiratory Rate [Anterior Bilateral Throughout] Blood Pressure 114/64 114/69 97/50 O2 Sat by Pulse 98 98 95 Oximetry O2 Sat by Pulse Oximetry [ Assessment] 04/24/22 04/24/22 04/24/22 11:00 11:27 12:00 Temperature 99.5 F Pulse Rate 90 85 Pulse Rate [ Anterior Bilateral Throughout] Pulse Rate [ 82 From Monitor] Respiratory 14 14 Rate Respiratory Rate [Anterior Bilateral Throughout] Blood Pressure 98/53 98/53 93/53 O2 Sat by Pulse 97 99 98 Oximetry O2 Sat by Pulse Oximetry [ Assessment] 04/24/22 04/24/22 04/24/22 13:00 13:24 14:00 Temperature Pulse Rate 96 H 105 H 90 Pulse Rate [ Anterior Bilateral Throughout] Pulse Rate [ From Monitor] Respiratory 14 15 Rate Respiratory Rate [Anterior Bilateral Throughout] Blood Pressure 116/69 116/69 113/64 O2 Sat by Pulse 98 97 Oximetry O2 Sat by Pulse Oximetry [ Assessment] Constitutional: alert, appears uncomfortable, other (orally intubated in bed with mildly increased respiratory effort at rest) Eyes: non-icteric ENT: oropharynx moist, other (+ midline tracheostomy) Neck: supple, no lymphadenopathy, no JVD, other Effort: mildly labored Ascultation: Bilateral: diminished breath sounds (bases), rhonchi Percussion: Bilateral: not dull Cardiovascular: regular rate and rhythm, other (S1,S2) Gastrointestinal: normoactive bowel sounds, soft, non-tender, non-distended Integumentary: normal Extremities: no cyanosis, no edema, pink and warm, pulses normal Neurologic: pupils equal and round, other (functional quadriplegia) Psychiatric: anxious (affect), other CBC and BMP: 04/24/22 04:29 04/24/22 04:29 ABG, PT/INR, D-dimer: ABG ABG pH 7.369 pH Units (7.350-7.450) 04/23/22 09:40 ABG pCO2 86.8 mm Hg 04/23/22 09:40 ABG pO2 56.8 mm Hg (80.0-90.0) L 04/23/22 09:40 ABG O2 Saturation 90.9 % (95.0-99.0) L 04/23/22 09:40 PT/INR, D-dimer PT 13.6 Sec. (12.2-14.9) 04/13/22 04:30 INR 0.94 (0.87-1.13) 04/13/22 04:30 Abnormal lab findings: Abnormal Labs 04/02/22 04/02/22 04/02/22 19:39 19:39 19:39 WBC 14.3 H RBC Hgb Hct MCV 96 H Plt Count 104 L Lymph % (Auto) Coleman % (Auto) Lymph # (Auto) Coleman # (Auto) Seg Neutrophils % Seg Neuts % (Manual) 94.0 H Lymphocytes % (Manual) 1.0 L Seg Neutrophils # Seg Neutrophils # Man 13.4 H Lymphocytes # (Manual) 0.1 L PT 15.9 H INR 1.14 H ABG pH ABG pO2 ABG HCO3 ABG O2 Saturation ABG Base Excess ABG Hemoglobin Oxyhemoglobin Sodium 151 H Potassium Chloride Carbon Dioxide BUN Creatinine 0.5 L Glucose POC Glucose Calcium 8.2 L Phosphorus Magnesium 1.60 L Total Creatine Kinase CK-MB (CK-2) Rel Index Troponin T 0.048 H C-Reactive Protein Total Protein 4.6 L Albumin 2.7 L LDL Cholesterol Direct 27 L Urine WBC (Auto) 04/02/22 04/03/22 04/03/22 19:42 05:14 06:30 WBC RBC Hgb Hct MCV Plt Count Lymph % (Auto) Coleman % (Auto) Lymph # (Auto) Coleman # (Auto) Seg Neutrophils % Seg Neuts % (Manual) Lymphocytes % (Manual) Seg Neutrophils # Seg Neutrophils # Man Lymphocytes # (Manual) PT INR ABG pH 7.471 H 7.496 H ABG pO2 47.8 L 91.0 H ABG HCO3 30.6 H ABG O2 Saturation 94.4 L ABG Base Excess 6.2 H ABG Hemoglobin 11.0 L 12.8 L Oxyhemoglobin 93.1 L Sodium 149 H Potassium 3.4 L Chloride Carbon Dioxide BUN Creatinine 0.4 L Glucose POC Glucose Calcium Phosphorus Magnesium Total Creatine Kinase CK-MB (CK-2) Rel Index Troponin T C-Reactive Protein Total Protein Albumin LDL Cholesterol Direct Urine WBC (Auto) 04/04/22 04/04/22 04/04/22 04:18 04:18 05:50 WBC 11.8 H RBC Hgb Hct MCV Plt Count 132 L Lymph % (Auto) Coleman % (Auto) Lymph # (Auto) Coleman # (Auto) Seg Neutrophils % Seg Neuts % (Manual) Lymphocytes % (Manual) Seg Neutrophils # Seg Neutrophils # Man Lymphocytes # (Manual) PT INR ABG pH 7.517 H ABG pO2 115.5 H ABG HCO3 29.9 H ABG O2 Saturation ABG Base Excess 6.7 H ABG Hemoglobin 12.3 L Oxyhemoglobin Sodium Potassium 3.5 L Chloride Carbon Dioxide 31 H BUN Creatinine 0.3 L Glucose 153 H POC Glucose Calcium Phosphorus 1.40 L Magnesium 1.50 L Total Creatine Kinase CK-MB (CK-2) Rel Index Troponin T C-Reactive Protein 31.60 H Total Protein Albumin LDL Cholesterol Direct Urine WBC (Auto) 04/05/22 04/05/22 04/05/22 02:50 05:25 11:28 WBC RBC Hgb Hct MCV Plt Count Lymph % (Auto) Coleman % (Auto) Lymph # (Auto) Coleman # (Auto) Seg Neutrophils % Seg Neuts % (Manual) Lymphocytes % (Manual) Seg Neutrophils # Seg Neutrophils # Man Lymphocytes # (Manual) PT INR ABG pH 7.455 H ABG pO2 50.7 L ABG HCO3 30.5 H ABG O2 Saturation 89.4 L ABG Base Excess 5.9 H ABG Hemoglobin 11.8 L Oxyhemoglobin 88.2 L Sodium Potassium Chloride Carbon Dioxide 32 H BUN Creatinine 0.2 L Glucose 110 H POC Glucose 124 H Calcium 7.9 L Phosphorus Magnesium Total Creatine Kinase CK-MB (CK-2) Rel Index Troponin T C-Reactive Protein Total Protein Albumin LDL Cholesterol Direct Urine WBC (Auto) 04/05/22 04/05/22 04/06/22 17:45 Unknown 04:00 WBC RBC 3.55 L Hgb 11.1 L 11.5 L Hct 33.2 L 35.1 L MCV Plt Count 113 L 114 L Lymph % (Auto) Coleman % (Auto) Lymph # (Auto) Coleman # (Auto) Seg Neutrophils % Seg Neuts % (Manual) Lymphocytes % (Manual) Seg Neutrophils # Seg Neutrophils # Man Lymphocytes # (Manual) PT INR ABG pH ABG pO2 ABG HCO3 ABG O2 Saturation ABG Base Excess ABG Hemoglobin Oxyhemoglobin Sodium Potassium Chloride Carbon Dioxide BUN Creatinine Glucose POC Glucose Calcium Phosphorus Magnesium Total Creatine Kinase CK-MB (CK-2) Rel Index Troponin T C-Reactive Protein Total Protein Albumin LDL Cholesterol Direct Urine WBC (Auto) 8.0 H 04/06/22 04/06/22 04/07/22 04:00 08:30 00:04 WBC RBC Hgb Hct MCV Plt Count Lymph % (Auto) Coleman % (Auto) Lymph # (Auto) Coleman # (Auto) Seg Neutrophils % Seg Neuts % (Manual) Lymphocytes % (Manual) Seg Neutrophils # Seg Neutrophils # Man Lymphocytes # (Manual) PT INR ABG pH ABG pO2 60.8 L ABG HCO3 30.5 H ABG O2 Saturation 93.3 L ABG Base Excess 4.9 H ABG Hemoglobin 12.4 L Oxyhemoglobin 92.1 L Sodium Potassium 3.0 L Chloride Carbon Dioxide BUN Creatinine < 0.2 L Glucose 130 H POC Glucose 117 H Calcium 8.1 L Phosphorus Magnesium Total Creatine Kinase CK-MB (CK-2) Rel Index Troponin T C-Reactive Protein Total Protein Albumin LDL Cholesterol Direct Urine WBC (Auto) 04/07/22 04/07/22 04/07/22 03:51 03:51 03:51 WBC 14.6 H RBC 3.57 L Hgb 11.1 L Hct 33.2 L MCV Plt Count 118 L Lymph % (Auto) 4.3 L Coleman % (Auto) 8.8 H Lymph # (Auto) 0.6 L Coleman # (Auto) 1.3 H Seg Neutrophils % 86.6 H Seg Neuts % (Manual) Lymphocytes % (Manual) Seg Neutrophils # 12.7 H Seg Neutrophils # Man Lymphocytes # (Manual) PT 15.2 H INR ABG pH ABG pO2 ABG HCO3 ABG O2 Saturation ABG Base Excess ABG Hemoglobin Oxyhemoglobin Sodium 133 L Potassium Chloride 96.0 L Carbon Dioxide 31 H BUN Creatinine 0.2 L Glucose 130 H POC Glucose Calcium 8.0 L Phosphorus Magnesium Total Creatine Kinase CK-MB (CK-2) Rel Index Troponin T C-Reactive Protein Total Protein Albumin LDL Cholesterol Direct Urine WBC (Auto) 04/07/22 04/07/22 04/08/22 04:25 09:10 04:49 WBC 16.1 H RBC 3.54 L Hgb 10.9 L Hct 33.3 L MCV Plt Count Lymph % (Auto) Coleman % (Auto) Lymph # (Auto) Coleman # (Auto) Seg Neutrophils % Seg Neuts % (Manual) Lymphocytes % (Manual) Seg Neutrophils # Seg Neutrophils # Man Lymphocytes # (Manual) PT INR ABG pH ABG pO2 71.0 L 63.4 L ABG HCO3 31.5 H 40.0 H ABG O2 Saturation 94.9 L ABG Base Excess 5.9 H 13.6 H ABG Hemoglobin 11.3 L 9.0 L Oxyhemoglobin 93.6 L Sodium Potassium Chloride Carbon Dioxide BUN Creatinine Glucose POC Glucose Calcium Phosphorus Magnesium Total Creatine Kinase CK-MB (CK-2) Rel Index Troponin T C-Reactive Protein Total Protein Albumin LDL Cholesterol Direct Urine WBC (Auto) 04/08/22 04/08/22 04/08/22 04:49 09:53 10:25 WBC RBC Hgb Hct MCV Plt Count Lymph % (Auto) Coleman % (Auto) Lymph # (Auto) Coleman # (Auto) Seg Neutrophils % Seg Neuts % (Manual) Lymphocytes % (Manual) Seg Neutrophils # Seg Neutrophils # Man Lymphocytes # (Manual) PT INR ABG pH ABG pO2 ABG HCO3 34.7 H ABG O2 Saturation ABG Base Excess 7.9 H ABG Hemoglobin 11.0 L Oxyhemoglobin Sodium 136 L Potassium Chloride 97.7 L Carbon Dioxide 33 H BUN Creatinine 0.2 L Glucose 155 H POC Glucose Calcium Phosphorus Magnesium Total Creatine Kinase CK-MB (CK-2) Rel Index Troponin T 0.030 H C-Reactive Protein Total Protein Albumin LDL Cholesterol Direct Urine WBC (Auto) 04/08/22 04/08/22 04/08/22 11:19 17:47 18:06 WBC RBC Hgb Hct MCV Plt Count Lymph % (Auto) Coleman % (Auto) Lymph # (Auto) Coleman # (Auto) Seg Neutrophils % Seg Neuts % (Manual) Lymphocytes % (Manual) Seg Neutrophils # Seg Neutrophils # Man Lymphocytes # (Manual) PT INR ABG pH ABG pO2 ABG HCO3 ABG O2 Saturation ABG Base Excess ABG Hemoglobin Oxyhemoglobin Sodium Potassium Chloride Carbon Dioxide BUN Creatinine Glucose POC Glucose 121 H Calcium Phosphorus Magnesium Total Creatine Kinase 31 L 46 L CK-MB (CK-2) Rel Index 6.4 H 5.6 H Troponin T 0.030 H 0.031 H C-Reactive Protein Total Protein Albumin LDL Cholesterol Direct Urine WBC (Auto) 04/09/22 04/09/22 04/09/22 04:35 04:35 11:24 WBC 11.5 H RBC 3.16 L Hgb 9.9 L Hct 29.4 L MCV Plt Count 131 L Lymph % (Auto) Coleman % (Auto) Lymph # (Auto) Coleman # (Auto) Seg Neutrophils % Seg Neuts % (Manual) Lymphocytes % (Manual) Seg Neutrophils # Seg Neutrophils # Man Lymphocytes # (Manual) PT INR ABG pH ABG pO2 ABG HCO3 ABG O2 Saturation ABG Base Excess ABG Hemoglobin Oxyhemoglobin Sodium Potassium Chloride 97.1 L Carbon Dioxide 35 H BUN Creatinine < 0.2 L Glucose 145 H POC Glucose 147 H Calcium Phosphorus Magnesium Total Creatine Kinase CK-MB (CK-2) Rel Index Troponin T C-Reactive Protein Total Protein Albumin LDL Cholesterol Direct Urine WBC (Auto) 04/09/22 04/09/22 04/09/22 13:00 17:32 23:48 WBC RBC Hgb Hct MCV Plt Count Lymph % (Auto) Coleman % (Auto) Lymph # (Auto) Coleman # (Auto) Seg Neutrophils % Seg Neuts % (Manual) Lymphocytes % (Manual) Seg Neutrophils # Seg Neutrophils # Man Lymphocytes # (Manual) PT INR ABG pH ABG pO2 66.6 L ABG HCO3 38.2 H ABG O2 Saturation 94.4 L ABG Base Excess 10.7 H ABG Hemoglobin 10.7 L Oxyhemoglobin 92.8 L Sodium Potassium Chloride Carbon Dioxide BUN Creatinine Glucose POC Glucose 143 H 114 H Calcium Phosphorus Magnesium Total Creatine Kinase CK-MB (CK-2) Rel Index Troponin T C-Reactive Protein Total Protein Albumin LDL Cholesterol Direct Urine WBC (Auto) 04/10/22 04/10/22 04/10/22 04:48 04:48 05:34 WBC RBC 2.91 L Hgb 9.1 L Hct 27.7 L MCV 95 H Plt Count Lymph % (Auto) Coleman % (Auto) Lymph # (Auto) Coleman # (Auto) Seg Neutrophils % Seg Neuts % (Manual) Lymphocytes % (Manual) Seg Neutrophils # Seg Neutrophils # Man Lymphocytes # (Manual) PT INR ABG pH ABG pO2 ABG HCO3 ABG O2 Saturation ABG Base Excess ABG Hemoglobin Oxyhemoglobin Sodium Potassium Chloride 95.7 L Carbon Dioxide 38 H BUN Creatinine < 0.2 L Glucose 118 H POC Glucose 127 H Calcium Phosphorus Magnesium Total Creatine Kinase CK-MB (CK-2) Rel Index Troponin T C-Reactive Protein Total Protein Albumin LDL Cholesterol Direct Urine WBC (Auto) 04/10/22 04/11/22 04/11/22 23:10 04:15 04:15 WBC 17.2 H RBC 2.98 L Hgb 9.2 L Hct 27.9 L MCV Plt Count Lymph % (Auto) Coleman % (Auto) Lymph # (Auto) Coleman # (Auto) Seg Neutrophils % Seg Neuts % (Manual) Lymphocytes % (Manual) Seg Neutrophils # Seg Neutrophils # Man Lymphocytes # (Manual) PT INR ABG pH ABG pO2 ABG HCO3 ABG O2 Saturation ABG Base Excess ABG Hemoglobin Oxyhemoglobin Sodium Potassium Chloride 96.1 L Carbon Dioxide 35 H BUN Creatinine < 0.2 L Glucose 138 H POC Glucose 106 H Calcium 8.3 L Phosphorus Magnesium Total Creatine Kinase CK-MB (CK-2) Rel Index Troponin T C-Reactive Protein Total Protein Albumin LDL Cholesterol Direct Urine WBC (Auto) 04/11/22 04/11/22 04/11/22 05:31 13:18 16:20 WBC RBC Hgb Hct MCV Plt Count Lymph % (Auto) Coleman % (Auto) Lymph # (Auto) Coleman # (Auto) Seg Neutrophils % Seg Neuts % (Manual) Lymphocytes % (Manual) Seg Neutrophils # Seg Neutrophils # Man Lymphocytes # (Manual) PT INR ABG pH ABG pO2 57.8 L ABG HCO3 40.5 H ABG O2 Saturation 90.6 L ABG Base Excess 12.6 H ABG Hemoglobin 10.5 L Oxyhemoglobin 89.0 L Sodium Potassium Chloride Carbon Dioxide BUN Creatinine Glucose POC Glucose 129 H 132 H Calcium Phosphorus Magnesium Total Creatine Kinase CK-MB (CK-2) Rel Index Troponin T C-Reactive Protein Total Protein Albumin LDL Cholesterol Direct Urine WBC (Auto) 04/11/22 04/11/22 04/12/22 17:29 23:17 04:00 WBC 17.4 H RBC 2.96 L Hgb 9.0 L Hct 28.0 L MCV 95 H Plt Count Lymph % (Auto) Coleman % (Auto) Lymph # (Auto) Coleman # (Auto) Seg Neutrophils % Seg Neuts % (Manual) Lymphocytes % (Manual) Seg Neutrophils # Seg Neutrophils # Man Lymphocytes # (Manual) PT INR ABG pH ABG pO2 ABG HCO3 ABG O2 Saturation ABG Base Excess ABG Hemoglobin Oxyhemoglobin Sodium Potassium Chloride Carbon Dioxide BUN Creatinine Glucose POC Glucose 125 H 151 H Calcium Phosphorus Magnesium Total Creatine Kinase CK-MB (CK-2) Rel Index Troponin T C-Reactive Protein Total Protein Albumin LDL Cholesterol Direct Urine WBC (Auto) 04/12/22 04/12/22 04/12/22 04:00 17:03 23:39 WBC RBC Hgb Hct MCV Plt Count Lymph % (Auto) Coleman % (Auto) Lymph # (Auto) Coleman # (Auto) Seg Neutrophils % Seg Neuts % (Manual) Lymphocytes % (Manual) Seg Neutrophils # Seg Neutrophils # Man Lymphocytes # (Manual) PT INR ABG pH ABG pO2 ABG HCO3 ABG O2 Saturation ABG Base Excess ABG Hemoglobin Oxyhemoglobin Sodium Potassium Chloride 97.4 L Carbon Dioxide 37 H BUN Creatinine < 0.2 L Glucose 127 H POC Glucose 106 H 107 H Calcium Phosphorus Magnesium Total Creatine Kinase CK-MB (CK-2) Rel Index Troponin T C-Reactive Protein Total Protein Albumin LDL Cholesterol Direct Urine WBC (Auto) 04/13/22 04/13/22 04/13/22 04:30 04:30 17:39 WBC 14.1 H RBC 2.66 L Hgb 8.4 L Hct 25.5 L MCV 96 H Plt Count Lymph % (Auto) Coleman % (Auto) Lymph # (Auto) Coleman # (Auto) Seg Neutrophils % Seg Neuts % (Manual) Lymphocytes % (Manual) Seg Neutrophils # Seg Neutrophils # Man Lymphocytes # (Manual) PT INR ABG pH ABG pO2 ABG HCO3 ABG O2 Saturation ABG Base Excess ABG Hemoglobin Oxyhemoglobin Sodium Potassium Chloride 93.9 L Carbon Dioxide 39 H BUN Creatinine < 0.2 L Glucose POC Glucose 134 H Calcium Phosphorus 1.90 L Magnesium Total Creatine Kinase CK-MB (CK-2) Rel Index Troponin T C-Reactive Protein Total Protein Albumin LDL Cholesterol Direct Urine WBC (Auto) 04/14/22 04/14/22 04/14/22 05:03 05:03 09:10 WBC 15.6 H RBC 3.02 L Hgb 9.3 L Hct 28.8 L MCV 95 H Plt Count Lymph % (Auto) Coleman % (Auto) Lymph # (Auto) Coleman # (Auto) Seg Neutrophils % Seg Neuts % (Manual) Lymphocytes % (Manual) Seg Neutrophils # Seg Neutrophils # Man Lymphocytes # (Manual) PT INR ABG pH ABG pO2 66.9 L ABG HCO3 44.5 H ABG O2 Saturation ABG Base Excess 17.2 H ABG Hemoglobin 8.1 L Oxyhemoglobin 94.8 L Sodium Potassium Chloride 93.8 L Carbon Dioxide 42 H* BUN Creatinine < 0.2 L Glucose 117 H POC Glucose Calcium Phosphorus Magnesium Total Creatine Kinase CK-MB (CK-2) Rel Index Troponin T C-Reactive Protein Total Protein Albumin LDL Cholesterol Direct Urine WBC (Auto) 04/15/22 04/15/22 04/16/22 04:44 04:44 04:16 WBC 13.0 H 12.6 H RBC 3.19 L 3.09 L Hgb 9.6 L 9.5 L Hct 30.2 L 29.1 L MCV 95 H Plt Count 456 H Lymph % (Auto) Coleman % (Auto) Lymph # (Auto) Coleman # (Auto) Seg Neutrophils % Seg Neuts % (Manual) Lymphocytes % (Manual) Seg Neutrophils # Seg Neutrophils # Man Lymphocytes # (Manual) PT INR ABG pH ABG pO2 ABG HCO3 ABG O2 Saturation ABG Base Excess ABG Hemoglobin Oxyhemoglobin Sodium Potassium Chloride 95.5 L Carbon Dioxide 37 H BUN Creatinine < 0.2 L Glucose POC Glucose Calcium Phosphorus Magnesium Total Creatine Kinase CK-MB (CK-2) Rel Index Troponin T C-Reactive Protein Total Protein Albumin LDL Cholesterol Direct Urine WBC (Auto) 04/16/22 04/16/22 04/16/22 04:16 05:00 14:00 WBC RBC Hgb Hct MCV Plt Count Lymph % (Auto) Coleman % (Auto) Lymph # (Auto) Coleman # (Auto) Seg Neutrophils % Seg Neuts % (Manual) Lymphocytes % (Manual) Seg Neutrophils # Seg Neutrophils # Man Lymphocytes # (Manual) PT INR ABG pH 7.324 L ABG pO2 55.6 L ABG HCO3 45.3 H ABG O2 Saturation 87.1 L ABG Base Excess 16.6 H ABG Hemoglobin 8.6 L Oxyhemoglobin 85.7 L Sodium Potassium Chloride 97.6 L Carbon Dioxide 36 H BUN Creatinine < 0.2 L Glucose 109 H POC Glucose 120 H Calcium Phosphorus Magnesium Total Creatine Kinase CK-MB (CK-2) Rel Index Troponin T C-Reactive Protein Total Protein Albumin LDL Cholesterol Direct Urine WBC (Auto) 04/17/22 04/17/22 04/17/22 04:36 04:36 04:57 WBC 14.4 H RBC 3.08 L Hgb 9.4 L Hct 29.0 L MCV Plt Count Lymph % (Auto) Coleman % (Auto) Lymph # (Auto) Coleman # (Auto) Seg Neutrophils % Seg Neuts % (Manual) Lymphocytes % (Manual) Seg Neutrophils # Seg Neutrophils # Man Lymphocytes # (Manual) PT INR ABG pH ABG pO2 ABG HCO3 ABG O2 Saturation ABG Base Excess ABG Hemoglobin Oxyhemoglobin Sodium Potassium Chloride 95.9 L Carbon Dioxide 39 H BUN Creatinine < 0.2 L Glucose 140 H POC Glucose 137 H Calcium 8.3 L Phosphorus Magnesium Total Creatine Kinase CK-MB (CK-2) Rel Index Troponin T C-Reactive Protein Total Protein Albumin LDL Cholesterol Direct Urine WBC (Auto) 04/17/22 04/17/22 04/18/22 09:15 18:01 04:20 WBC 11.2 H RBC 3.00 L Hgb 9.3 L Hct 28.6 L MCV 95 H Plt Count Lymph % (Auto) Coleman % (Auto) Lymph # (Auto) Coleman # (Auto) Seg Neutrophils % Seg Neuts % (Manual) Lymphocytes % (Manual) Seg Neutrophils # Seg Neutrophils # Man Lymphocytes # (Manual) PT INR ABG pH 7.345 L ABG pO2 ABG HCO3 48.2 H ABG O2 Saturation ABG Base Excess 19.2 H ABG Hemoglobin 9.7 L Oxyhemoglobin Sodium Potassium Chloride Carbon Dioxide BUN Creatinine Glucose POC Glucose 129 H Calcium Phosphorus Magnesium Total Creatine Kinase CK-MB (CK-2) Rel Index Troponin T C-Reactive Protein Total Protein Albumin LDL Cholesterol Direct Urine WBC (Auto) 04/18/22 04/18/22 04/18/22 04:20 17:35 23:50 WBC RBC Hgb Hct MCV Plt Count Lymph % (Auto) Coleman % (Auto) Lymph # (Auto) Coleman # (Auto) Seg Neutrophils % Seg Neuts % (Manual) Lymphocytes % (Manual) Seg Neutrophils # Seg Neutrophils # Man Lymphocytes # (Manual) PT INR ABG pH ABG pO2 ABG HCO3 ABG O2 Saturation ABG Base Excess ABG Hemoglobin Oxyhemoglobin Sodium Potassium Chloride 96.8 L Carbon Dioxide 43 H* BUN 22 H Creatinine < 0.2 L Glucose 137 H POC Glucose 128 H 123 H Calcium 8.2 L Phosphorus Magnesium Total Creatine Kinase CK-MB (CK-2) Rel Index Troponin T C-Reactive Protein Total Protein Albumin LDL Cholesterol Direct Urine WBC (Auto) 04/19/22 04/19/22 04/19/22 04:08 04:08 08:50 WBC 16.8 H RBC 3.18 L Hgb 9.8 L Hct 30.1 L MCV 95 H Plt Count Lymph % (Auto) Coleman % (Auto) Lymph # (Auto) Coleman # (Auto) Seg Neutrophils % Seg Neuts % (Manual) Lymphocytes % (Manual) Seg Neutrophils # Seg Neutrophils # Man Lymphocytes # (Manual) PT INR ABG pH ABG pO2 56.0 L ABG HCO3 47.1 H ABG O2 Saturation 93.3 L ABG Base Excess 20.1 H ABG Hemoglobin 8.0 L Oxyhemoglobin 91.8 L Sodium Potassium Chloride 96.2 L Carbon Dioxide 40 H BUN 24 H Creatinine < 0.2 L Glucose 125 H POC Glucose Calcium 8.3 L Phosphorus Magnesium Total Creatine Kinase CK-MB (CK-2) Rel Index Troponin T C-Reactive Protein Total Protein Albumin LDL Cholesterol Direct Urine WBC (Auto) 04/19/22 04/20/22 04/20/22 12:02 00:40 04:49 WBC 14.7 H RBC 3.36 L Hgb 10.3 L Hct 32.0 L MCV 95 H Plt Count Lymph % (Auto) Coleman % (Auto) Lymph # (Auto) Coleman # (Auto) Seg Neutrophils % Seg Neuts % (Manual) Lymphocytes % (Manual) Seg Neutrophils # Seg Neutrophils # Man Lymphocytes # (Manual) PT INR ABG pH ABG pO2 ABG HCO3 ABG O2 Saturation ABG Base Excess ABG Hemoglobin Oxyhemoglobin Sodium Potassium Chloride Carbon Dioxide BUN Creatinine Glucose POC Glucose 124 H 140 H Calcium Phosphorus Magnesium Total Creatine Kinase CK-MB (CK-2) Rel Index Troponin T C-Reactive Protein Total Protein Albumin LDL Cholesterol Direct Urine WBC (Auto) 04/20/22 04/20/22 04/21/22 05:36 11:40 04:05 WBC RBC Hgb Hct MCV Plt Count Lymph % (Auto) Coleman % (Auto) Lymph # (Auto) Coleman # (Auto) Seg Neutrophils % Seg Neuts % (Manual) Lymphocytes % (Manual) Seg Neutrophils # Seg Neutrophils # Man Lymphocytes # (Manual) PT INR ABG pH ABG pO2 ABG HCO3 ABG O2 Saturation ABG Base Excess ABG Hemoglobin Oxyhemoglobin Sodium Potassium Chloride 93.4 L Carbon Dioxide 40 H BUN 25 H Creatinine < 0.2 L Glucose 122 H POC Glucose 125 H 128 H Calcium Phosphorus Magnesium Total Creatine Kinase CK-MB (CK-2) Rel Index Troponin T C-Reactive Protein Total Protein Albumin LDL Cholesterol Direct Urine WBC (Auto) 04/21/22 04/22/22 04/22/22 10:31 05:03 05:03 WBC 12.6 H 12.7 H RBC 2.83 L 2.96 L Hgb 8.6 L 9.0 L Hct 26.9 L 28.0 L MCV 95 H 95 H Plt Count Lymph % (Auto) Coleman % (Auto) Lymph # (Auto) Coleman # (Auto) Seg Neutrophils % Seg Neuts % (Manual) Lymphocytes % (Manual) Seg Neutrophils # Seg Neutrophils # Man Lymphocytes # (Manual) PT INR ABG pH ABG pO2 ABG HCO3 ABG O2 Saturation ABG Base Excess ABG Hemoglobin Oxyhemoglobin Sodium Potassium Chloride 93.9 L Carbon Dioxide 43 H* BUN 23 H Creatinine < 0.2 L Glucose 137 H POC Glucose Calcium Phosphorus Magnesium Total Creatine Kinase CK-MB (CK-2) Rel Index Troponin T C-Reactive Protein Total Protein Albumin LDL Cholesterol Direct Urine WBC (Auto) 04/22/22 04/23/22 04/24/22 08:34 09:40 04:29 WBC 14.4 H RBC 2.74 L Hgb 8.4 L Hct 25.7 L MCV Plt Count Lymph % (Auto) Coleman % (Auto) Lymph # (Auto) Coleman # (Auto) Seg Neutrophils % Seg Neuts % (Manual) Lymphocytes % (Manual) Seg Neutrophils # Seg Neutrophils # Man Lymphocytes # (Manual) PT INR ABG pH ABG pO2 54.1 L 56.8 L ABG HCO3 48.5 H 49.0 H ABG O2 Saturation 92.1 L 90.9 L ABG Base Excess 20.9 H 20.8 H ABG Hemoglobin 9.0 L 8.4 L Oxyhemoglobin 90.6 L 89.5 L Sodium Potassium Chloride Carbon Dioxide BUN Creatinine Glucose POC Glucose Calcium Phosphorus Magnesium Total Creatine Kinase CK-MB (CK-2) Rel Index Troponin T C-Reactive Protein Total Protein Albumin LDL Cholesterol Direct Urine WBC (Auto) 04/24/22 04:29 WBC RBC Hgb Hct MCV Plt Count Lymph % (Auto) Coleman % (Auto) Lymph # (Auto) Coleman # (Auto) Seg Neutrophils % Seg Neuts % (Manual) Lymphocytes % (Manual) Seg Neutrophils # Seg Neutrophils # Man Lymphocytes # (Manual) PT INR ABG pH ABG pO2 ABG HCO3 ABG O2 Saturation ABG Base Excess ABG Hemoglobin Oxyhemoglobin Sodium Potassium Chloride 90.7 L Carbon Dioxide 40 H BUN Creatinine < 0.2 L Glucose 133 H POC Glucose Calcium Phosphorus Magnesium Total Creatine Kinase CK-MB (CK-2) Rel Index Troponin T C-Reactive Protein Total Protein Albumin LDL Cholesterol Direct Urine WBC (Auto) Chest x-ray: image reviewed (stable small volume basilar atelectasis) Allied health notes reviewed: nursing
--- NOTE | 2022-04-24 16:00 | Progress Note ---
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, recently hospitalized at [facility] admitted for acute hypoxemic respiratory failure 2/2 pneumonia Neuro: h/o ALS -s/p precedex, fentanyl gtt -Reorientation as needed -Maintain sleep-wake cycle -As needed analgesia -CT head with no acute intracranial process -Per family patient is nonverbal at baseline but responsive -Seroquel Cardiac: Suspect ischemic coronary artery disease, h/o cardiomyopathy -Cardiology consulted, appreciate recommendations -continue conservative management -Blood pressure monitoring per protocol -s/p Vasopressor support with Levophed -Echocardiogram shows ejection fraction of 40 to 45%, mild global hypokinesis of left ventricle -Nitro patch, BB Respiratory: Acute hypoxic respiratory failure -CCM consulted, appreciate recommendations -Intubated on 04/02 with a 7.50 ETT attempt at the lips -s/p trach on 04/14 and s/p bronch on 04/15 -A.m. vent settings: Assist-control/ PRVC TV 400, rate 14, Peep 8, FiO2 70% -See RT notes for titration -CPT and mucomyst -VAP bundle -SPO2 monitoring GI: Moderate protein calorie malnutrition -24 hours + 580 mL -PPI -Peg 04/14 -NTR consulted for tube feedings -BR: Senokot/colace, MiraLAX : Metabolic Alkalosis -Record intake and output -Renally dose medications -Avoid nephrotoxic medications -Daily weights -trend BMP ID: Sepsis, Acute Bronchopneumonia, HAP (Pseudomonas and Enterobacter tracheal aspirate), blood culture with bacillus species -Infectious disease consulted, appreciate recommendation -Per infectious disease patient was recently admitted to [facility] but discharged home with home hospice and not giving antibiotics -04/15 Tracheal aspirate with Pseudomonas aeruginosa, Enterobacter aerogenes -04/02 blood culture with bacillus species, 04/05 blood culture NGTD -CRP 31.6, procalcitonin 0.08 -MRSA (-) -s/p cefepime for 14 days -Monitor WBC and temperature curve Endo: NAD -Avoid hypoglycemia -SSI -Accu-Cheks q 6 Heme: Leukocytosis -Heparin subq -Trend CBC -Transfuse hemoglobin less than 7 -SCDs to BLE while in bed Advance Care Planning - Disease education, care plan, diagnoses, and prognosis were discussed patient's , Carly Lopez, and patient daughter, Kaylee Warren, who translated for #[phone]. They reported that patient was following at [facility] for his ALS and during recent hospitalization at [facility] they were told nothing else can be offered to patient at this time and patient was discharge home with home hospice and PO morphine. First hospice visit was on , 04/01 however, patient became unresponsive 04/02 and they brought in to the hospital. - Goal of care and code status were also addressed at that time. Family wants to wait for a couple days to see how patient respond to current treatment before making a decision. All questions and concerns were addressed at this time. Patient family acknowledged understanding and agreement with care plan. -Patient remains a FULL CODE status. -04/05: Discussion at bedside with interpreting service with Dr. Valdivia and family state they would discuss next steps amongst themselves and let healthcare team know of decisions -04/06: extensive discussion with family ( and son) with Dr. Grayson regarding goals of care -04/08: Extensive discussion with with the use of informatica mdm developer line regarding goals of care; no decision made. Possible consult to surgery for trach/PEG early next week. -04/09: Discussion with and her sister with Dr. Grayson and then with Dr. Kari arzate-> Consulted surgery for trach/peg -LTACH placement pending -will need to stay 21 days and have 3 failed PSV trials. The high probability of a clinically significant, sudden or life threatening deterioration of the [resp] system(s) required my full and direct attention, intervention and personal management. The aggregate critical care time was [60] minutes. 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 Work-up in the emergency department revealed leukocytosis, elevated troponin and hyponatremia and CXR revealed moderate to large pleural effusion on the right. Patient was having agonal breathing in the emergency department and was intubated. Patient was admitted to the hospitalist service with consults to CCM, cardiology and infectious disease for further work-up. Hospital Course to Date: 04/03: Intubated and Sedated on versed gtt, RASS-5. CT head/brain noted with no acute intracranial abnormality. Plan to initiated precededx gtt and wean off versed for a RASS goal of 0 to -2. CT chect also reviewed, findings are most consistent with acute bronchopneumonia. Continue empiric IV Abx, vent adjustment per CCM. ID consulted. Continue to F/U on cultures. Titrate pressor for MAP above 65. Medical records requested from [facility]. 04/04: Remains stable on the vent, easily arousable on precedex gtt, not following commands. Plan for SAT/SBT today. PRN analgesia for CPOT greater than 3. Fevers improved, cultures and procal pending. Continue current IV abx, ID also consulted. Remains on low dose pressors, titrate pressors for a MAP above 65. 04/05: Long discussion with family with use of translation phone with [facility] regarding goals of care. Family to have meeting amongst themselves and informed care team of decisions. Fentanyl drip added for respiratory distress. Remains on Precedex drip. Antibiotics per ID. Given 2L NS bolus with levophed gtt 04/06: Family discussion with Dr. Grayson for goals of care. CXR shows possible mucus plug, continue CPT as FiO2 is being able to be weaned. Potassium repleted. Weaning fentnyl gtt. 04/07: Ultrasound guided thoracentesis today scheduled, inadequate amount of pleural effusion on so not completed. Patient was started on Levophed overnight which was weaned off this morning however had to be started twice a day. Remains on fentanyl and Precedex. Cardiology discontinued BB and ACEi in setting of hypotension. 04/08: COVID-19 PCR negative. Routine EEG ordered by cardiology which showed ST changes, cardiology aware. They will continue conservative treatment. Repeat troponins 0.030 which are less than admit of 0.048. Dr. Grayson had a long discussion with with the use of informatica mdm developer today at bedside and has not made a decision regarding goals of care. Possible consult to surgery for trach/PEG early next week. Continues to require Precedex and fentanyl drip for sedation. Carvedilol/lisinopril discontinued as patient is continuously on Levophed. 04/09: No acute events reported overnight, remains on fentanyl, Precedex and Levophed drips. Dr. Grayson and Dr. Pineda updated family at bedside extensively today. Consulted surgery for trach/PEG. COVID-19 PCR negative. 04/10: Patient noted to have desaturation episodes, FiO2 increased slightly to 35%. Will add Mucomyst. Remains on fentanyl and Precedex. Off of Levophed. Surgery consulted for trach/PEG. 04/11: FiO2 increased over night likely related to hypoxia, continues on fent gtt, weaning precedex gtt as he is also on Seroquel. Will d/w CCM re scheduled or prn oxycodone 04/12: Periods of hypoxia and tachycardia this am. Symptoms improved post deep suction and tracheal lavage, Repeat CXR noted with no significant change. Continue CPT and mucomyst. Plan for possible trach/PEG tomorrow by general surgery. 04/13: Remains stable on the vent. Patient is wake and tracking but does not follow simple commands. No report of hypoxia from overnight, continue CPT and mucomyst. Plan for track and PEG today by General Surgery. Plan for LTAC placement post procedure, case management to arrange. 04/14: VIRGILIO overnight, Trach and PEG postponed for today by general surgery. Plan for LTAC placement post procedure, case management to arrange. 04/15: S/p Trach and PEG. Up to 80% FiO2 this am, this am CXR noted suggesting possible mucus plug. D/W CCM plan for bronch today. Continue CPT and mucomyst. Plan of care thoroughly discussed with patient's and son (who translated for ) at the bedside. Per , electronic tester had already discussed the risks and benefits of the procedure yesterday. She verbalized understanding and agreed with procedure and current care plan, consent signed. Okay to use PEG-tube for meds this am, resume TF once okay by general Surgery. Case management to arrange LTAC placement. 04/16: s/p Bronchocopy by CCM. FiO2 down to 60%, angela 10 this am. This am CXR with moderate improvement. Continue CPT and mucomyst, wean Fio2 as tolerated for SPO2 above 92%. Patient is tolerating TF, advance to goal as ordered. Possible LTAC placement, case management to arrange. 04/17: VIRGILIO overnight. remains stable on the vent, recent CXR and this am ABG noted. Continue CPT and mucomyst, wean Fio2 as tolerated. 04/18: Remains stable on the vent, Fio2 down to 55% and peep of 8 this am. Continue to wean as tolerated, CPT, and mucomyst. Dsiposition- LTAC placement, case management to arrange. 04/19: No acute events overnight. Continue current management. 04/20: No acute events overnight, continue current management 04/21: Patient had chest ultrasound which showed trace pleural effusions, chest x-ray improved after the addition of Mucomyst yesterday. FiO2 55-65%. No acute events overnight. more interactive today. 04/22: Seroquel changed to BID, FiO2 was increased to 60%. RT increased FIO2 to 100 d/t desaturation into the 80s but was able to wean down. CCM increased PEEP and decreased FiO2. 04/23: CCM increase PEEP, no acute events reported overnight. 04/24: Spoke to RT about decreasing FiO2 as tolerated. No acute events reported overnight. Continue supportive management. Hospitalist Physical - Constitutional Vitals: Temp Pulse Resp BP Pulse Ox 98.9 F 91 H 14 113/64 95 04/24/22 15:48 04/24/22 15:11 04/24/22 15:00 04/24/22 15:11 04/24/22 15:11 General appearance: Present: no acute distress, cachectic, other (trach/) - EENT Eyes: Present: PERRL, EOM intact ENT: hearing intact, clear oral mucosa, dentition normal - Neck Neck: Present: normal ROM - Respiratory Respiratory effort: normal Respiratory: bilateral: diminished, rhonchi - Cardiovascular Rhythm: regular Heart Sounds: Present: S1 & S2. Absent: systolic murmur, diastolic murmur - Extremities Extremities: no ischemia, pulses intact, pulses symmetrical, normal temperature, normal color Peripheral Pulses: within normal limits - Abdominal General gastrointestinal: soft, non-tender, non-distended, normal bowel sounds - Integumentary Integumentary: Present: warm, dry - Psychiatric Psychiatric: cooperative - Neurologic Neurologic: other (PERRL, very weak bilateral upper extremities, intact cough/gag) - Allied Health Allied health notes reviewed: nursing, RT HEART Score - HEART Score Troponin: Troponin T 0.031 ng/mL (0.00-0.029) H 04/08/22 17:47 Results - Labs CBC & Chem 7: 04/24/22 04:29 04/24/22 04:29 Labs: Laboratory Last Values WBC 14.4 K/mm3 (4.5-11.0) H 04/24/22 04:29 RBC 2.74 M/mm3 (3.65-5.03) L 04/24/22 04:29 Hgb 8.4 gm/dl (11.8-15.2) L 04/24/22 04:29 Hct 25.7 % (35.5-45.6) L 04/24/22 04:29 MCV 94 fl (84-94) 04/24/22 04:29 MCH 31 pg (28-32) 04/24/22 04:29 MCHC 33 % (32-34) 04/24/22 04:29 RDW 13.6 % (13.2-15.2) 04/24/22 04:29 Plt Count 353 K/mm3 (140-440) 04/24/22 04:29 Lymph % (Auto) 4.3 % (13.4-35.0) L 04/07/22 03:51 Woodson % (Auto) 8.8 % (0.0-7.3) H 04/07/22 03:51 Eos % (Auto) 0.1 % (0.0-4.3) 04/07/22 03:51 Baso % (Auto) 0.2 % (0.0-1.8) 04/07/22 03:51 Lymph # (Auto) 0.6 K/mm3 (1.2-5.4) L 04/07/22 03:51 Woodson # (Auto) 1.3 K/mm3 (0.0-0.8) H 04/07/22 03:51 Eos # (Auto) 0.0 K/mm3 (0.0-0.4) 04/07/22 03:51 Baso # (Auto) 0.0 K/mm3 (0.0-0.1) 04/07/22 03:51 Add Manual Diff Complete 04/02/22 19:39 Total Counted 100 04/02/22 19:39 Seg Neutrophils % 86.6 % (40.0-70.0) H 04/07/22 03:51 Seg Neuts % (Manual) 94.0 % (40.0-70.0) H 04/02/22 19:39 Band Neutrophils % 0 % 04/02/22 19:39 Lymphocytes % (Manual) 1.0 % (13.4-35.0) L 04/02/22 19:39 Reactive Lymphs % (Man) 0 % 04/02/22 19:39 Monocytes % (Manual) 5.0 % (0.0-7.3) 04/02/22 19:39 Eosinophils % (Manual) 0 % (0.0-4.3) 04/02/22 19:39 Basophils % (Manual) 0 % (0.0-1.8) 04/02/22 19:39 Metamyelocytes % 0 % 04/02/22 19:39 Myelocytes % 0 % 04/02/22 19:39 Promyelocytes % 0 % 04/02/22 19:39 Blast Cells % 0 % 04/02/22 19:39 Nucleated RBC % Not Reportable 04/02/22 19:39 Seg Neutrophils # 12.7 K/mm3 (1.8-7.7) H 04/07/22 03:51 Seg Neutrophils # Man 13.4 K/mm3 (1.8-7.7) H 04/02/22 19:39 Band Neutrophils # 0.0 K/mm3 04/02/22 19:39 Lymphocytes # (Manual) 0.1 K/mm3 (1.2-5.4) L 04/02/22 19:39 Abs React Lymphs (Man) 0.0 K/mm3 04/02/22 19:39 Monocytes # (Manual) 0.7 K/mm3 (0.0-0.8) 04/02/22 19:39 Eosinophils # (Manual) 0.0 K/mm3 (0.0-0.4) 04/02/22 19:39 Basophils # (Manual) 0.0 K/mm3 (0.0-0.1) 04/02/22 19:39 Metamyelocytes # 0.0 K/mm3 04/02/22 19:39 Myelocytes # 0.0 K/mm3 04/02/22 19:39 Promyelocytes # 0.0 K/mm3 04/02/22 19:39 Blast Cells # 0.0 K/mm3 04/02/22 19:39 WBC Morphology Not Reportable 04/02/22 19:39 Hypersegmented Neuts Not Reportable 04/02/22 19:39 Hyposegmented Neuts Not Reportable 04/02/22 19:39 Hypogranular Neuts Not Reportable 04/02/22 19:39 Smudge Cells Not Reportable 04/02/22 19:39 Toxic Granulation Not Reportable 04/02/22 19:39 Toxic Vacuolation Not Reportable 04/02/22 19:39 Dohle Bodies Not Reportable 04/02/22 19:39 Pelger-Huet Anomaly Not Reportable 04/02/22 19:39 Terry Rods Not Reportable 04/02/22 19:39 Platelet Estimate Consistent w auto 04/02/22 19:39 Clumped Platelets Not Reportable 04/02/22 19:39 Plt Clumps, EDTA Not Reportable 04/02/22 19:39 Large Platelets Not Reportable 04/02/22 19:39 Giant Platelets Not Reportable 04/02/22 19:39 Platelet Satelliting Not Reportable 04/02/22 19:39 Plt Morphology Comment Not Reportable 04/02/22 19:39 RBC Morphology Not Reportable 04/02/22 19:39 Dimorphic RBCs Not Reportable 04/02/22 19:39 Polychromasia Not Reportable 04/02/22 19:39 Hypochromasia Not Reportable 04/02/22 19:39 Poikilocytosis Not Reportable 04/02/22 19:39 Anisocytosis 1+ 04/02/22 19:39 Microcytosis Not Reportable 04/02/22 19:39 Macrocytosis Not Reportable 04/02/22 19:39 Spherocytes Not Reportable 04/02/22 19:39 Pappenheimer Bodies Not Reportable 04/02/22 19:39 Sickle Cells Not Reportable 04/02/22 19:39 Target Cells Not Reportable 04/02/22 19:39 Tear Drop Cells Not Reportable 04/02/22 19:39 Ovalocytes Not Reportable 04/02/22 19:39 Helmet Cells Not Reportable 04/02/22 19:39 Patricio-Channing Bodies Not Reportable 04/02/22 19:39 [place] Rings Not Reportable 04/02/22 19:39 Cheikh Cells Not Reportable 04/02/22 19:39 Bite Cells Not Reportable 04/02/22 19:39 Crenated Cell Not Reportable 04/02/22 19:39 Elliptocytes Not Reportable 04/02/22 19:39 Acanthocytes (Spur) Not Reportable 04/02/22 19:39 Rouleaux Not Reportable 04/02/22 19:39 Hemoglobin C Crystals Not Reportable 04/02/22 19:39 Schistocytes Not Reportable 04/02/22 19:39 Malaria parasites Not Reportable 04/02/22 19:39 Denton Bodies Not Reportable 04/02/22 19:39 Hem Pathologist Commnt No 04/02/22 19:39 PT 13.6 Sec. (12.2-14.9) 04/13/22 04:30 INR 0.94 (0.87-1.13) 04/13/22 04:30 APTT 35.7 Sec. (24.2-36.6) 04/07/22 03:51 ABG pH 7.369 pH Units (7.350-7.450) 04/23/22 09:40 ABG pCO2 86.8 mm Hg 04/23/22 09:40 ABG pO2 56.8 mm Hg (80.0-90.0) L 04/23/22 09:40 ABG HCO3 49.0 mmol/L (20.0-26.0) H 04/23/22 09:40 ABG O2 Saturation 90.9 % (95.0-99.0) L 04/23/22 09:40 ABG O2 Content 10.6 (0.0-44) 04/23/22 09:40 ABG Base Excess 20.8 mmol/L (-2.0-3.0) H 04/23/22 09:40 ABG Hemoglobin 8.4 gm/dl (14.0-18.0) L 04/23/22 09:40 ABG Carboxyhemoglobin 1.2 % (0.0-5.0) 04/23/22 09:40 ABG Methemoglobin 0.3 % (0.0-1.5) 04/23/22 09:40 Oxyhemoglobin 89.5 % (95.0-99.0) L 04/23/22 09:40 FiO2 60 % 04/23/22 09:40 Sodium 137 mmol/L (137-145) 04/24/22 04:29 Potassium 4.5 mmol/L (3.6-5.0) 04/24/22 04:29 Chloride 90.7 mmol/L (98-107) L 04/24/22 04:29 Carbon Dioxide 40 mmol/L (22-30) H 04/24/22 04:29 Anion Gap 11 mmol/L 04/24/22 04:29 BUN 19 mg/dL (9-20) 04/24/22 04:29 Creatinine < 0.2 mg/dL (0.8-1.3) L 04/24/22 04:29 Estimated GFR > 60 ml/min 04/24/22 04:29 BUN/Creatinine Ratio 95 % 04/24/22 04:29 Glucose 133 mg/dL (75-100) H 04/24/22 04:29 POC Glucose 128 mg/dL (70-105) H 04/20/22 11:40 Lactic Acid 1.90 mmol/L (0.7-2.0) 04/02/22 19:39 Calcium 8.5 mg/dL (8.4-10.2) 04/24/22 04:29 Phosphorus 2.80 mg/dL (2.5-4.5) 04/24/22 04:29 Magnesium 1.90 mg/dL (1.7-2.3) 04/24/22 04:29 Total Bilirubin 0.80 mg/dL (0.1-1.2) 04/02/22 19:39 AST 15 units/L (5-40) 04/02/22 19:39 ALT 9 units/L (7-56) 04/02/22 19:39 Alkaline Phosphatase 43 units/L (35-129) 04/02/22 19:39 Total Creatine Kinase 46 units/L (55-170) L 04/08/22 17:47 CK-MB (CK-2) 2.6 ng/mL (0.0-4.0) 04/08/22 17:47 CK-MB (CK-2) Rel Index 5.6 (0-4) H 04/08/22 17:47 Troponin T 0.031 ng/mL (0.00-0.029) H 04/08/22 17:47 C-Reactive Protein 31.60 mg/dL (0.00-1.30) H 04/04/22 04:18 Total Protein 4.6 g/dL (6.3-8.2) L 04/02/22 19:39 Albumin 2.7 g/dL (3.9-5) L 04/02/22 19:39 Albumin/Globulin Ratio 1.4 % 04/02/22 19:39 Triglycerides 80 mg/dL (2-149) 04/02/22 19:39 Cholesterol 94 mg/dL (50-199) 04/02/22 19:39 LDL Cholesterol Direct 27 mg/dL (50-130) L 04/02/22 19:39 HDL Cholesterol 47 mg/dL (40-59) 04/02/22 19:39 Cholesterol/HDL Ratio 2.00 % 04/02/22 19:39 Procalcitonin 0.08 ng/mL (<0.15) 04/04/22 04:18 Urine Color Aracely (Yellow) 04/05/22 17:45 Urine Turbidity Cloudy (Clear) 04/05/22 17:45 Urine pH 5.0 (5.0-7.0) 04/05/22 17:45 Ur Specific [place] 1.021 (1.003-1.030) 04/05/22 17:45 Urine Protein 30 mg/dl mg/dL (Negative) 04/05/22 17:45 Urine Glucose (UA) Neg mg/dL (Negative) 04/05/22 17:45 Urine Ketones Tr mg/dL (Negative) 04/05/22 17:45 Urine Blood Sm (Negative) 04/05/22 17:45 Urine Nitrite Neg (Negative) 04/05/22 17:45 Urine Bilirubin Neg (Negative) 04/05/22 17:45 Urine Urobilinogen < 2.0 mg/dL (<2.0) 04/05/22 17:45 Ur Leukocyte Esterase Tr (Negative) 04/05/22 17:45 Urine WBC (Auto) 8.0 /HPF (0.0-6.0) H 04/05/22 17:45 Urine RBC (Auto) 3.0 /HPF (0.0-6.0) 04/05/22 17:45 U Epithel Cells (Auto) 2.0 /HPF (0-13.0) 04/05/22 17:45 Urine Bacteria (Auto) 1+ /HPF (Negative) 04/02/22 Unknown Hyaline Casts 1 /LPF 04/05/22 17:45 Urine Mucus 3+ /HPF 04/05/22 17:45 Nasal Screen MRSA (PCR) Negative (Negative) 04/05/22 12:37 Vancomycin Trough 6.0 ug/mL (5.0-20.0) 04/05/22 18:53 Coronavirus (PCR) Negative (Negative) 04/07/22 14:52 Perez/IV: Voiding Method Condom Catheter Active Medications - Current Medications Current Medications: Generic Name Dose Route Start Last Admin Trade Name Freq PRN Reason Stop Dose Admin Acetaminophen 650 mg 04/02/22 23:53 04/21/22 16:23 Acetaminophen 325 Mg Tab PO 650 mg Q6H PRN Administration Pain MILD(1-3)/Fever >100.5/FAITH Acetylcysteine 200 mg 04/21/22 16:00 04/24/22 15:36 Acetylcysteine 20% 200 Mg/1 Ml *For Inhalation Use* INHALATION Not Given Q8HRT SEGUNDO Albuterol 2.5 mg 04/06/22 16:00 04/24/22 15:36 Albuterol 2.5 Mg/3 Ml Nebu IH 2.5 mg Q8HRT SEGUNDO Administration Bisacodyl 10 mg 04/07/22 09:44 04/12/22 10:06 Bisacodyl 10 Mg Rect Supp MA 10 mg QDAY PRN Administration Constipation Dextrose 50 ml 04/06/22 17:54 Dextrose 50% In Water (25gm) 50 Ml Syringe IV Q30MIN PRN Hypoglycemia Protocol Docusate Sodium 100 mg 04/03/22 15:00 04/24/22 09:17 Docusate Sodium 100 Mg/10 Ml Oral Liqd PO 100 mg BID SEGUNDO Administration Famotidine 20 mg 04/06/22 10:00 04/24/22 09:17 Famotidine 20 Mg Tab FEEDTUBE 20 mg BID SEGUNDO Administration Fentanyl 50 mcg 04/04/22 15:56 04/23/22 17:00 Fentanyl 100 Mcg/2 Ml Inj IV 50 mcg Q2HR PRN Administration For CPOT of greater than 3 Heparin Sodium (Porcine) 5,000 unit 04/03/22 06:00 04/24/22 13:24 Heparin 5,000 Unit/1 Ml Vial SUB-Q 5,000 unit Q8HR SEGUNDO Administration Insulin Human Regular 0 units 04/06/22 18:00 04/24/22 12:21 Insulin Regular, Human 100 Units/1 Ml SUB-Q Not Given Q6H [facility] Protocol Magnesium Hydroxide 30 ml 04/02/22 23:53 Magnesium Hydroxide (Mom) Oral Liqd Udc PO Q4H PRN Constipation Metoprolol Tartrate 25 mg 04/16/22 18:00 04/24/22 13:24 Metoprolol Tartrate 25 Mg Tab FEEDTUBE 25 mg Q6HR SEGUNDO Administration Ondansetron HCl 4 mg 04/02/22 23:53 Ondansetron 4 Mg/2 Ml Inj IV Q8H PRN Nausea And Vomiting Polyethylene Glycol 17 gm 04/08/22 10:00 04/24/22 09:17 Polyethylene Glycol 3350 17 Gm Powder PO 17 gm QDAY SEGUNDO Administration Quetiapine Fumarate 50 mg 04/22/22 10:00 04/24/22 09:17 Quetiapine 25 Mg Tab PO 50 mg BID SEGUNDO Administration Senna 17.6 mg 04/03/22 22:00 04/24/22 09:17 Sennosides Oral Liqd 8.8 Mg/5 Ml Oral Liqd PO 17.6 mg Q12HR SEGUNDO Administration Sodium Chloride 10 ml 04/03/22 10:00 04/24/22 09:17 Sodium Chloride 0.9% 10 Ml Flush Syringe IV 10 ml BID SEGUNDO Administration Sodium Chloride 10 ml 04/02/22 23:53 Sodium Chloride 0.9% 10 Ml Flush Syringe IV PRN PRN LINE FLUSH Nutrition/Malnutrition Assess - Dietary Evaluation Nutrition/Malnutrition Findings: Nutrition Notes Start: 04/04/22 13:13 Freq: Status: Active Protocol: Document 04/20/22 11:36 COLLEEN (Rec: 04/20/22 12:00 COLLEEN [id number]) Nutrition Notes Initial or Follow up Reassessment Current Diagnosis Coronary Artery Disease, Respiratory Failure, Malnutrition Other Pertinent Diagnosis HCAP, HFpEF, ALS, Pleural Effusion, R-Lung Collapse, Hypotension, ... Current Diet TF-Vital AF 1.2 Inderjit @ 50 ml/hr (since D 04/15). Labs/Tests 04/19: Cl 96.2, CO2 40, BUN 24 , Crea <0.2, Glu 125, Ca 8.3. Pertinent Medications 04/20: Nutritionally unremarkable. Height 5 ft 4.8 in Weight 46.8 kg [place] Body Weight (kg) 61.27 BMI 17.2 Weight change and time frame No body weight change reported in 2 weeks. Weight Status Underweight Subjective/Other Information RD consult for routine F/U on TF tolerance/continuation. TF continues as prescribed, and well tolerated, according to RN notes. RN note on 04/20/22 06:13: No acute changes throughout night . Trach intact to vent, with Fi02 @ 55%. Peg intact with patient tolerating tube feedings as ordered. Vitals stable. Currently 93/53, 93, 14, 95%. Pt continues on Mechanical ventilation, O2 saturation @ 96%, according to Physical Assessment Histroy notes. Pt presents constipation, according to Physical Assessment Histroy notes. Tracheostomy and PEG tube placement on 04/15, well tolerated, according to Progress notes. LTAC placement still pending. Percent of energy/protein needs met: Prescribed TF-Vital AF 1.2 Inderjit @ 50 ml/hr provides for energy/protein needs (1,450 Kcal/91 g) during LOS, 98% Kcal; 100% AA. Burn Absent Trauma Absent GI Symptoms Constipation Difficulty In Swallowing,Chewing Food Allergy No Skin Integrity/Comment Sacral open wound. Current % PO Other Minimum of two criteria No #1 Nutrition Diagnosis Inadequate oral intake Diagnosis Progress(for reassessment Continues documentation) Is patient on ventilator? Yes Is Patient Ambulatory and/or Out of Bed No REE-([facility]-confined to bed) 9683.002 Calculation Used for Recommendations [facility] Additional Notes Protein: 1.2-2 g/Kg IBW; 73- 122 g/day. Fluids: 1 ml/Kcal, or as per MD. Nutrition Intervention Nutrition Support: Continue TF-Vital AF 1.2 Inderjit @ 50 ml/hr. Flush: 80 ml water Q 4 hr, or as per MD. Kcal 1,450 Protein (gm) 91 Carbohydrates (gm) 134 Fat (gm) 65 Fluid (mL) 980 Fiber (gm) 6 % RDI: 98% Kcal; 100% AA. Goal #1 Provide at least 75% of energy /protein needs through Enteral Feeding during LOS. Follow-Up By: 04/27/22 Additional Comments Continue monitoring TF tolerance and BM. <NORM GRAYSON - Last Filed: 04/28/22 14:37> Assessment and Plan Assessment and plan: I saw and evaluated the patient. Discussed with the nurse practitioner and agree with their findings and plan as documented in this note. Hospitalist Physical - Constitutional Vitals: Temp Pulse Resp BP Pulse Ox 99.1 F 109 H 15 111/66 100 04/28/22 11:43 04/28/22 13:00 04/28/22 13:00 04/28/22 13:00 04/28/22 13:00 HEART Score - HEART Score Troponin: Troponin T 0.031 ng/mL (0.00-0.029) H 04/08/22 17:47 Results - Labs CBC & Chem 7: 04/26/22 04:22 04/26/22 04:22 Labs: Laboratory Last Values WBC 10.0 K/mm3 (4.5-11.0) 04/26/22 04:22 RBC 2.88 M/mm3 (3.65-5.03) L 04/26/22 04:22 Hgb 8.9 gm/dl (11.8-15.2) L 04/26/22 04:22 Hct 26.8 % (35.5-45.6) L 04/26/22 04:22 MCV 93 fl (84-94) 04/26/22 04:22 MCH 31 pg (28-32) 04/26/22 04:22 MCHC 33 % (32-34) 04/26/22 04:22 RDW 13.8 % (13.2-15.2) 04/26/22 04:22 Plt Count 376 K/mm3 (140-440) 04/26/22 04:22 Lymph % (Auto) 4.3 % (13.4-35.0) L 04/07/22 03:51 Woodson % (Auto) 8.8 % (0.0-7.3) H 04/07/22 03:51 Eos % (Auto) 0.1 % (0.0-4.3) 04/07/22 03:51 Baso % (Auto) 0.2 % (0.0-1.8) 04/07/22 03:51 Lymph # (Auto) 0.6 K/mm3 (1.2-5.4) L 04/07/22 03:51 Woodson # (Auto) 1.3 K/mm3 (0.0-0.8) H 04/07/22 03:51 Eos # (Auto) 0.0 K/mm3 (0.0-0.4) 04/07/22 03:51 Baso # (Auto) 0.0 K/mm3 (0.0-0.1) 04/07/22 03:51 Add Manual Diff Complete 04/02/22 19:39 Total Counted 100 04/02/22 19:39 Seg Neutrophils % 86.6 % (40.0-70.0) H 04/07/22 03:51 Seg Neuts % (Manual) 94.0 % (40.0-70.0) H 04/02/22 19:39 Band Neutrophils % 0 % 04/02/22 19:39 Lymphocytes % (Manual) 1.0 % (13.4-35.0) L 04/02/22 19:39 Reactive Lymphs % (Man) 0 % 04/02/22 19:39 Monocytes % (Manual) 5.0 % (0.0-7.3) 04/02/22 19:39 Eosinophils % (Manual) 0 % (0.0-4.3) 04/02/22 19:39 Basophils % (Manual) 0 % (0.0-1.8) 04/02/22 19:39 Metamyelocytes % 0 % 04/02/22 19:39 Myelocytes % 0 % 04/02/22 19:39 Promyelocytes % 0 % 04/02/22 19:39 Blast Cells % 0 % 04/02/22 19:39 Nucleated RBC % Not Reportable 04/02/22 19:39 Seg Neutrophils # 12.7 K/mm3 (1.8-7.7) H 04/07/22 03:51 Seg Neutrophils # Man 13.4 K/mm3 (1.8-7.7) H 04/02/22 19:39 Band Neutrophils # 0.0 K/mm3 04/02/22 19:39 Lymphocytes # (Manual) 0.1 K/mm3 (1.2-5.4) L 04/02/22 19:39 Abs React Lymphs (Man) 0.0 K/mm3 04/02/22 19:39 Monocytes # (Manual) 0.7 K/mm3 (0.0-0.8) 04/02/22 19:39 Eosinophils # (Manual) 0.0 K/mm3 (0.0-0.4) 04/02/22 19:39 Basophils # (Manual) 0.0 K/mm3 (0.0-0.1) 04/02/22 19:39 Metamyelocytes # 0.0 K/mm3 04/02/22 19:39 Myelocytes # 0.0 K/mm3 04/02/22 19:39 Promyelocytes # 0.0 K/mm3 04/02/22 19:39 Blast Cells # 0.0 K/mm3 04/02/22 19:39 WBC Morphology Not Reportable 04/02/22 19:39 Hypersegmented Neuts Not Reportable 04/02/22 19:39 Hyposegmented Neuts Not Reportable 04/02/22 19:39 Hypogranular Neuts Not Reportable 04/02/22 19:39 Smudge Cells Not Reportable 04/02/22 19:39 Toxic Granulation Not Reportable 04/02/22 19:39 Toxic Vacuolation Not Reportable 04/02/22 19:39 Dohle Bodies Not Reportable 04/02/22 19:39 Pelger-Huet Anomaly Not Reportable 04/02/22 19:39 Terry Rods Not Reportable 04/02/22 19:39 Platelet Estimate Consistent w auto 04/02/22 19:39 Clumped Platelets Not Reportable 04/02/22 19:39 Plt Clumps, EDTA Not Reportable 04/02/22 19:39 Large Platelets Not Reportable 04/02/22 19:39 Giant Platelets Not Reportable 04/02/22 19:39 Platelet Satelliting Not Reportable 04/02/22 19:39 Plt Morphology Comment Not Reportable 04/02/22 19:39 RBC Morphology Not Reportable 04/02/22 19:39 Dimorphic RBCs Not Reportable 04/02/22 19:39 Polychromasia Not Reportable 04/02/22 19:39 Hypochromasia Not Reportable 04/02/22 19:39 Poikilocytosis Not Reportable 04/02/22 19:39 Anisocytosis 1+ 04/02/22 19:39 Microcytosis Not Reportable 04/02/22 19:39 Macrocytosis Not Reportable 04/02/22 19:39 Spherocytes Not Reportable 04/02/22 19:39 Pappenheimer Bodies Not Reportable 04/02/22 19:39 Sickle Cells Not Reportable 04/02/22 19:39 Target Cells Not Reportable 04/02/22 19:39 Tear Drop Cells Not Reportable 04/02/22 19:39 Ovalocytes Not Reportable 04/02/22 19:39 Helmet Cells Not Reportable 04/02/22 19:39 Patricio-Channing Bodies Not Reportable 04/02/22 19:39 [place] Rings Not Reportable 04/02/22 19:39 Cheikh Cells Not Reportable 04/02/22 19:39 Bite Cells Not Reportable 04/02/22 19:39 Crenated Cell Not Reportable 04/02/22 19:39 Elliptocytes Not Reportable 04/02/22 19:39 Acanthocytes (Spur) Not Reportable 04/02/22 19:39 Rouleaux Not Reportable 04/02/22 19:39 Hemoglobin C Crystals Not Reportable 04/02/22 19:39 Schistocytes Not Reportable 04/02/22 19:39 Malaria parasites Not Reportable 04/02/22 19:39 [place] Bodies Not Reportable 04/02/22 19:39 Hem Pathologist Commnt No 04/02/22 19:39 PT 13.6 Sec. (12.2-14.9) 04/13/22 04:30 INR 0.94 (0.87-1.13) 04/13/22 04:30 APTT 35.7 Sec. (24.2-36.6) 04/07/22 03:51 ABG pH 7.457 pH Units (7.350-7.450) H 04/25/22 09:00 ABG pCO2 61.7 mm Hg 04/25/22 09:00 ABG pO2 66.7 mm Hg (80.0-90.0) L 04/25/22 09:00 ABG HCO3 42.6 mmol/L (20.0-26.0) H 04/25/22 09:00 ABG O2 Saturation 95.7 % (95.0-99.0) 04/25/22 09:00 ABG O2 Content 20.0 (0.0-44) 04/25/22 09:00 ABG Base Excess 15.3 mmol/L (-2.0-3.0) H 04/25/22 09:00 ABG Hemoglobin 8.8 gm/dl (14.0-18.0) L 04/25/22 09:00 ABG Carboxyhemoglobin 1.3 % (0.0-5.0) 04/25/22 09:00 ABG Methemoglobin 0.4 % (0.0-1.5) 04/25/22 09:00 Oxyhemoglobin 94.1 % (95.0-99.0) L 04/25/22 09:00 FiO2 35 % 04/25/22 09:00 Sodium 137 mmol/L (137-145) 04/26/22 04:22 Potassium 4.3 mmol/L (3.6-5.0) 04/26/22 04:22 Chloride 93.2 mmol/L (98-107) L 04/26/22 04:22 Carbon Dioxide 37 mmol/L (22-30) H 04/26/22 04:22 Anion Gap 11 mmol/L 04/26/22 04:22 BUN 16 mg/dL (9-20) 04/26/22 04:22 Creatinine < 0.2 mg/dL (0.8-1.3) L 04/26/22 04:22 Estimated GFR > 60 ml/min 04/26/22 04:22 BUN/Creatinine Ratio 80 % 04/26/22 04:22 Glucose 114 mg/dL (75-100) H 04/26/22 04:22 POC Glucose 128 mg/dL (70-105) H 04/20/22 11:40 Lactic Acid 1.90 mmol/L (0.7-2.0) 04/02/22 19:39 Calcium 8.5 mg/dL (8.4-10.2) 04/26/22 04:22 Phosphorus 3.60 mg/dL (2.5-4.5) 04/26/22 04:22 Magnesium 1.90 mg/dL (1.7-2.3) 04/26/22 04:22 Total Bilirubin 0.80 mg/dL (0.1-1.2) 04/02/22 19:39 AST 15 units/L (5-40) 04/02/22 19:39 ALT 9 units/L (7-56) 04/02/22 19:39 Alkaline Phosphatase 43 units/L (35-129) 04/02/22 19:39 Total Creatine Kinase 46 units/L (55-170) L 04/08/22 17:47 CK-MB (CK-2) 2.6 ng/mL (0.0-4.0) 04/08/22 17:47 CK-MB (CK-2) Rel Index 5.6 (0-4) H 04/08/22 17:47 Troponin T 0.031 ng/mL (0.00-0.029) H 04/08/22 17:47 C-Reactive Protein 31.60 mg/dL (0.00-1.30) H 04/04/22 04:18 Total Protein 4.6 g/dL (6.3-8.2) L 04/02/22 19:39 Albumin 2.7 g/dL (3.9-5) L 04/02/22 19:39 Albumin/Globulin Ratio 1.4 % 04/02/22 19:39 Triglycerides 80 mg/dL (2-149) 04/02/22 19:39 Cholesterol 94 mg/dL (50-199) 04/02/22 19:39 LDL Cholesterol Direct 27 mg/dL (50-130) L 04/02/22 19:39 HDL Cholesterol 47 mg/dL (40-59) 04/02/22 19:39 Cholesterol/HDL Ratio 2.00 % 04/02/22 19:39 Procalcitonin 0.08 ng/mL (<0.15) 04/04/22 04:18 Urine Color Aracely (Yellow) 04/05/22 17:45 Urine Turbidity Cloudy (Clear) 04/05/22 17:45 Urine pH 5.0 (5.0-7.0) 04/05/22 17:45 Ur Specific [place] 1.021 (1.003-1.030) 04/05/22 17:45 Urine Protein 30 mg/dl mg/dL (Negative) 04/05/22 17:45 Urine Glucose (UA) Neg mg/dL (Negative) 04/05/22 17:45 Urine Ketones Tr mg/dL (Negative) 04/05/22 17:45 Urine Blood Sm (Negative) 04/05/22 17:45 Urine Nitrite Neg (Negative) 04/05/22 17:45 Urine Bilirubin Neg (Negative) 04/05/22 17:45 Urine Urobilinogen < 2.0 mg/dL (<2.0) 04/05/22 17:45 Ur Leukocyte Esterase Tr (Negative) 04/05/22 17:45 Urine WBC (Auto) 8.0 /HPF (0.0-6.0) H 04/05/22 17:45 Urine RBC (Auto) 3.0 /HPF (0.0-6.0) 04/05/22 17:45 U Epithel Cells (Auto) 2.0 /HPF (0-13.0) 04/05/22 17:45 Urine Bacteria (Auto) 1+ /HPF (Negative) 04/02/22 Unknown Hyaline Casts 1 /LPF 04/05/22 17:45 Urine Mucus 3+ /HPF 04/05/22 17:45 Nasal Screen MRSA (PCR) Negative (Negative) 04/05/22 12:37 Vancomycin Trough 6.0 ug/mL (5.0-20.0) 04/05/22 18:53 Coronavirus (PCR) Negative (Negative) 04/07/22 14:52 Perez/IV: Voiding Method Condom Catheter Active Medications - Current Medications Current Medications: Generic Name Dose Route Start Last Admin Trade Name Freq PRN Reason Stop Dose Admin Acetaminophen 650 mg 04/02/22 23:53 04/21/22 16:23 Acetaminophen 325 Mg Tab PO 650 mg Q6H PRN Administration Pain MILD(1-3)/Fever >100.5/FAITH Acetylcysteine 200 mg 04/21/22 16:00 04/28/22 07:15 Acetylcysteine 20% 200 Mg/1 Ml *For Inhalation Use* INHALATION 200 mg Q8HRT SEGUNDO Administration Albuterol 2.5 mg 04/06/22 16:00 04/28/22 07:14 Albuterol 2.5 Mg/3 Ml Nebu IH 2.5 mg Q8HRT SEGUNDO Administration Bisacodyl 10 mg 04/07/22 09:44 04/12/22 10:06 Bisacodyl 10 Mg Rect Supp MA 10 mg QDAY PRN Administration Constipation Dextrose 50 ml 05/31/22 17:54 Dextrose 50% In Water (25gm) 50 Ml Syringe IV Q30MIN PRN Hypoglycemia Protocol Docusate Sodium 100 mg 04/28/22 10:00 04/28/22 09:24 Docusate Sodium 100 Mg/10 Ml Oral Liqd FEEDTUBE 100 mg BID SEGUNDO Administration Famotidine 20 mg 04/06/22 10:00 04/28/22 09:24 Famotidine 20 Mg Tab FEEDTUBE 20 mg BID SEGUNDO Administration Fentanyl 50 mcg 04/04/22 15:56 04/23/22 17:00 Fentanyl 100 Mcg/2 Ml Inj IV 50 mcg Q2HR PRN Administration For CPOT of greater than 3 Heparin Sodium (Porcine) 5,000 unit 04/03/22 06:00 04/28/22 13:38 Heparin 5,000 Unit/1 Ml Vial SUB-Q 5,000 unit Q8HR SEGUNDO Administration Insulin Human Regular 0 units 04/06/22 18:00 04/28/22 13:39 Insulin Regular, Human 100 Units/1 Ml SUB-Q Not Given Q6H SEGUNDO Protocol Magnesium Hydroxide 30 ml 04/02/22 23:53 Magnesium Hydroxide (Mom) Oral Liqd Udc PO Q4H PRN Constipation Metoprolol Tartrate 25 mg 04/16/22 18:00 04/28/22 12:25 Metoprolol Tartrate 25 Mg Tab FEEDTUBE 25 mg Q6HR SEGUNDO Administration Ondansetron HCl 4 mg 04/02/22 23:53 Ondansetron 4 Mg/2 Ml Inj IV Q8H PRN Nausea And Vomiting Polyethylene Glycol 17 gm 04/08/22 10:00 04/28/22 09:24 Polyethylene Glycol 3350 17 Gm Powder PO 17 gm QDAY SEGUNDO Administration Quetiapine Fumarate 50 mg 04/28/22 10:00 04/28/22 09:25 Quetiapine 25 Mg Tab FEEDTUBE 50 mg BID SEGUNDO Administration Senna 17.6 mg 04/28/22 10:00 04/28/22 09:24 Sennosides Oral Liqd 8.8 Mg/5 Ml Oral Liqd FEEDTUBE 17.6 mg Q12HR SEGUNDO Administration Sodium Chloride 10 ml 04/03/22 10:00 04/28/22 09:26 Sodium Chloride 0.9% 10 Ml Flush Syringe IV 10 ml BID SEGUNDO Administration Sodium Chloride 10 ml 04/02/22 23:53 Sodium Chloride 0.9% 10 Ml Flush Syringe IV PRN PRN LINE FLUSH Nutrition/Malnutrition Assess - Dietary Evaluation Nutrition/Malnutrition Findings: Nutrition Notes Start: 04/04/22 13:13 Freq: Status: Active Protocol: Document 04/27/22 11:53 COLLEEN (Rec: 04/27/22 12:21 COLLEEN [email or web address]) Nutrition Notes Initial or Follow up Reassessment Current Diagnosis Coronary Artery Disease, Decubitus(Pressure Ulcer), Sepsis,Respiratory Failure, Malnutrition Other Pertinent Diagnosis HCAP, HFpEF, ALS, Pleural Effusion, R-Lung Collapse, .. . Current Diet TF-Vital AF 1.2 Inderjit @ 50 ml/hr (since D 04/15). Labs/Tests 04/27: Cl 93.2, CO2 37, Crea < 0.2, Glu 114. Pertinent Medications 04/27: Nutritionally unremarkable. Height 5 ft 4.8 in Weight 46.8 kg [place] Body Weight (kg) 61.27 BMI 17.2 Weight change and time frame No body weight change reported in 3 weeks. Weight Status Underweight Subjective/Other Information RD consult for routine F/U on TF tolerance/continuation. TF continues as prescribed, and well tolerated, according to RN notes. Pt continues on Mechanical ventilation, O2 saturation @ 96%, according to Physical Assessment Histroy notes. Pt continues to present constipation, according to Physical Assessment Histroy notes. 3 failed attempts to wean Pt from Mechanical Ventilation, Pt is back to previous settings in [facility], according to RN notes. Pt is pending authorization for LTAC placement, according to Progress notes. Percent of energy/protein needs met: Prescribed TF-Vital AF 1.2 Inderjit @ 50 ml/hr provides for energy/protein needs (1,450 Kcal/91 g) during LOS, 98% Kcal; 100% AA. Burn Absent Trauma Absent GI Symptoms Constipation Difficulty In Swallowing,Chewing Food Allergy No Skin Integrity/Comment Sacral open wound. Current % PO Other Minimum of two criteria No #1 Nutrition Diagnosis Inadequate oral intake Diagnosis Progress(for reassessment Continues documentation) Is patient on ventilator? Yes Is Patient Ambulatory and/or Out of Bed No REE-([place]-St. Jeor-confined to bed) 8510.130 Calculation Used for Recommendations [place]-St Jeor Additional Notes Protein: 1.2-2 g/Kg IBW; 73- 122 g/day. Fluids: 1 ml/Kcal, or as per MD. Nutrition Intervention Nutrition Support: Continue TF-Vital AF 1.2 Inderjit @ 50 ml/hr. Flush: 80 ml water Q 4 hr, or as per MD. Kcal 1,450 Protein (gm) 91 Carbohydrates (gm) 134 Fat (gm) 65 Fluid (mL) 980 Fiber (gm) 6 % RDI: 98% Kcal; 100% AA. Goal #1 Provide at least 75% of energy /protein needs through Enteral Feeding during LOS. Follow-Up By: 05/04/22 Additional Comments Continue monitoring TF tolerance and BM.
[2022-04-25] MEDS: ALBUTEROL 2.5 MG/3 ML NEBU IH SCH ×3 (00:54→15:13)
[2022-04-25] MEDS: ACETYLCYSTEINE 20% 200 MG/1 ML *FOR INHALATION USE INHALATION SCH ×3 (00:54→15:13)
[2022-04-25] MEDS: METOPROLOL TARTRATE 25 MG TAB FEEDTUBE SCH ×4 (01:55→17:22)
[2022-04-25] MEDS: HEPARIN 5,000 UNIT/1 ML VIAL SUB-Q SCH ×3 (06:30→21:50)
[2022-04-25] MEDS: INSULIN REGULAR, HUMAN 100 UNITS/1 ML SUB-Q SCH ×3 (06:32→17:22)
[2022-04-25] MEDS: SENNOSIDES ORAL LIQD 8.8 MG/5 ML ORAL LIQD PO SCH ×3 (06:33→21:50)
[2022-04-25] MEDS: DOCUSATE SODIUM 100 MG/10 ML ORAL LIQD PO SCH ×3 (06:33→21:50)
--- NOTE | 2022-04-25 09:08 | Progress Note ---
Assessment and Plan - Patient Problems (1) Respiratory failure Current Visit: Yes Status: Acute Plan to address problem: Patient presented with acute respiratory failure, with chest x-ray showing total whiteout of the right lung, due to acute pneumonia, large right pleural effusion and collapse of the right lung. Continue supportive management, antibiotics. (2) Acute coronary syndrome Current Visit: Yes Status: Acute Plan to address problem: The patient's interval ECGs while in the ICU showed dynamic changes of anterior wall ischemia or infarction. Patient has severe comorbidities including progressive total paralysis of ALS, and intercurrent respiratory failure with large right pleural effusion and total collapse of the right lung. Currently assessed as a poor candidate for aggressive cardiac management due to the multiple severe acute and chronic comorbidities. He has been placed on conservative, empiric coronary artery disease medical therapy. A trach PEG procedure has been completed, discharge planning for custodial facility placement is in progress. Subjective Date of service: 04/25/22 Principal diagnosis: Ac and ch hypercapnic and hypoxemic Resp Failure; ALS; HCAP; Sepsis; NSTEMI Interval history: Patient is sedated, on the ventilator via tracheostomy. On night monitor, there is a stable sinus rhythm. Objective Vital Signs Temp Pulse Pulse Pulse Resp Resp BP 04/25/22 08:00 84 14 123/77 04/25/22 07:35 87 14 04/25/22 07:34 95 H 04/25/22 07:22 88 86 14 128/79 04/25/22 07:16 99.7 F H 04/25/22 07:00 77 14 125/67 04/25/22 06:29 85 139/79 04/25/22 06:00 94 H 14 139/79 04/25/22 05:00 96 H 15 125/72 04/25/22 04:00 97.7 F 92 H 88 14 125/72 04/25/22 03:00 95 H 15 115/67 04/25/22 02:00 103 H 14 112/70 04/25/22 01:55 107 H 116/73 04/25/22 01:00 101 H 17 126/72 04/25/22 00:00 99.9 F H 84 94 H 79 15 14 102/67 04/24/22 23:00 80 15 107/61 04/24/22 22:03 86 16 129/74 04/24/22 22:00 88 14 129/74 04/24/22 21:00 87 14 125/75 04/24/22 20:00 99.3 F 83 83 16 121/70 04/24/22 19:00 84 15 110/69 04/24/22 18:00 94 H 14 119/74 04/24/22 17:56 90 122/74 04/24/22 17:00 91 H 17 123/70 04/24/22 16:00 97 H 93 H 14 122/65 04/24/22 15:48 98.9 F 04/24/22 15:36 97 H 14 04/24/22 15:11 91 H 113/64 04/24/22 15:00 90 14 111/62 04/24/22 14:00 90 15 113/64 04/24/22 13:24 105 H 116/69 04/24/22 13:00 96 H 14 116/69 04/24/22 12:00 99.5 F 85 82 14 93/53 04/24/22 11:27 89 98/53 04/24/22 11:00 90 14 98/53 04/24/22 10:00 84 14 97/50 Pulse Ox Pulse Ox 04/25/22 08:00 92 04/25/22 07:35 92 04/25/22 07:34 04/25/22 07:22 93 93 04/25/22 07:16 04/25/22 07:00 93 04/25/22 06:29 04/25/22 06:00 89 04/25/22 05:00 100 04/25/22 04:00 100 04/25/22 03:00 98 04/25/22 02:00 97 04/25/22 01:55 04/25/22 01:00 92 04/25/22 00:00 100 94 04/24/22 23:00 100 04/24/22 22:03 97 04/24/22 22:00 99 04/24/22 21:00 100 04/24/22 20:00 99 04/24/22 19:00 99 04/24/22 18:00 93 04/24/22 17:56 04/24/22 17:00 91 04/24/22 16:00 96 04/24/22 15:48 04/24/22 15:36 95 06/18/22 15:11 95 04/24/22 15:00 96 04/24/22 14:00 97 04/24/22 13:24 04/24/22 13:00 98 04/24/22 12:00 98 04/24/22 11:27 99 04/24/22 11:00 97 04/24/22 10:00 95 - Physical Examination General: Other (On the vent via tracheostomy) HEENT: Positive: PERRL, Normocephaly, Other (ET-tube in place) Neck: Positive: neck supple, trachea midline (intubated). Negative: JVD/HJR Cardiac: Positive: Reg Rate and Rhythm Lungs: Positive: Decreased Breath Sounds Neuro: Positive: Weakness (Generalized myopathy, patient with ALS), Other (On the vent via tracheostomy) Abdomen: Positive: Soft Skin: Positive: Clear Extremities: Present: Other (TR.EDEMA). Absent: edema (NO) - Allied health notes Allied health notes reviewed: nursing
[2022-04-25] MEDS: QUEtiapine 25 MG TAB PO SCH ×2 (09:13→21:50)
[2022-04-25] MEDS: FAMOTIDINE 20 MG TAB FEEDTUBE SCH ×2 (09:13→21:50)
[2022-04-25] MEDS: POLYETHYLENE GLYCOL 3350 17 GM POWDER PO SCH (09:14)
[2022-04-25 09:36] LABS: ABG Base Excess 15.3 mmol/L (-2.0-3.0); ABG HCO3 42.6 mmol/L (20.0-26.0); ABG PCO2 61.7 mm Hg; ABG PH 7.457 pH Units (7.350-7.450); ABG PO2 66.7 mm Hg (80.0-90.0)
[2022-04-25 09:38] LABS: ABG Methemoglobin 0.4 % (0.0-1.5); ABG Oxygen Saturation 95.7 % (95.0-99.0)
--- NOTE | 2022-04-25 13:33 | Progress Note ---
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, recently hospitalized at [facility] admitted for acute hypoxemic respiratory failure 2/2 pneumonia Neuro: h/o ALS -s/p precedex, fentanyl gtt -Reorientation as needed -Maintain sleep-wake cycle -As needed analgesia -CT head with no acute intracranial process -Per family patient is nonverbal at baseline but responsive -Seroquel Cardiac: Suspect ischemic coronary artery disease, h/o cardiomyopathy -Cardiology consulted, appreciate recommendations -continue conservative management -Blood pressure monitoring per protocol -s/p Vasopressor support with Levophed -Echocardiogram shows ejection fraction of 40 to 45%, mild global hypokinesis of left ventricle -Nitro patch, BB Respiratory: Acute hypoxic respiratory failure -CCM consulted, appreciate recommendations -Intubated on 04/02 with a 7.50 ETT attempt at the lips -s/p trach on 04/14 and s/p bronch on 04/15 -A.m. vent settings: Assist-control/ PRVC TV 400, rate 14, Peep 8, FiO2 70% -See RT notes for titration -CPT and mucomyst -VAP bundle -SPO2 monitoring GI: Moderate protein calorie malnutrition -24 hours + 580 mL -PPI -Peg 04/14 -NTR consulted for tube feedings -BR: Senokot/colace, MiraLAX : Metabolic Alkalosis -Record intake and output -Renally dose medications -Avoid nephrotoxic medications -Daily weights -trend BMP ID: Sepsis, Acute Bronchopneumonia, HAP (Pseudomonas and Enterobacter tracheal aspirate), blood culture with bacillus species -Infectious disease consulted, appreciate recommendation -Per infectious disease patient was recently admitted to [facility] but discharged home with home hospice and not giving antibiotics -04/15 Tracheal aspirate with Pseudomonas aeruginosa, Enterobacter aerogenes -04/02 blood culture with bacillus species, 04/05 blood culture NGTD -CRP 31.6, procalcitonin 0.08 -MRSA (-) -s/p cefepime for 14 days -Monitor WBC and temperature curve Endo: NAD -Avoid hypoglycemia -SSI -Accu-Cheks q 6 Heme: Leukocytosis -Heparin subq -Trend CBC -Transfuse hemoglobin less than 7 -SCDs to BLE while in bed Advance Care Planning - Disease education, care plan, diagnoses, and prognosis were discussed patient's , Carly Lopez, and patient daughter, Kaylee Warren, who translated for #[phone]. They reported that patient was following at [place] for his ALS and during recent hospitalization at [facility] they were told nothing else can be offered to patient at this time and patient was discharge home with home hospice and PO morphine. First hospice visit was on , 04/01 however, patient became unresponsive 04/02 and they brought in to the hospital. - Goal of care and code status were also addressed at that time. Family wants to wait for a couple days to see how patient respond to current treatment before making a decision. All questions and concerns were addressed at this time. Patient family acknowledged understanding and agreement with care plan. -Patient remains a FULL CODE status. -04/05: Discussion at bedside with interpreting service with Dr. Valdivia and family state they would discuss next steps amongst themselves and let healthcare team know of decisions -04/06: extensive discussion with family ( and son) with Dr. Grayson regarding goals of care -04/08: Extensive discussion with with the use of agriculture science teacher line regarding goals of care; no decision made. Possible consult to surgery for trach/PEG early next week. -04/09: Discussion with and her sister with Dr. Grayson and then with Dr. Kari arzate-> Consulted surgery for trach/peg -LTACH placement pending -will need to stay 21 days and have 3 failed PSV trials. The high probability of a clinically significant, sudden or life threatening deterioration of the [resp] system(s) required my full and direct attention, intervention and personal management. The aggregate critical care time was [60] minutes. 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 Work-up in the emergency department revealed leukocytosis, elevated troponin and hyponatremia and CXR revealed moderate to large pleural effusion on the right. Patient was having agonal breathing in the emergency department and was intubated. Patient was admitted to the hospitalist service with consults to CCM, cardiology and infectious disease for further work-up. Hospital Course to Date: 04/03: Intubated and Sedated on versed gtt, RASS-5. CT head/brain noted with no acute intracranial abnormality. Plan to initiated precededx gtt and wean off versed for a RASS goal of 0 to -2. CT chect also reviewed, findings are most consistent with acute bronchopneumonia. Continue empiric IV Abx, vent adjustment per CCM. ID consulted. Continue to F/U on cultures. Titrate pressor for MAP above 65. Medical records requested from [facility]. 04/04: Remains stable on the vent, easily arousable on precedex gtt, not following commands. Plan for SAT/SBT today. PRN analgesia for CPOT greater than 3. Fevers improved, cultures and procal pending. Continue current IV abx, ID also consulted. Remains on low dose pressors, titrate pressors for a MAP above 65. 04/05: Long discussion with family with use of translation phone with [facility] regarding goals of care. Family to have meeting amongst themselves and informed care team of decisions. Fentanyl drip added for respiratory distress. Remains on Precedex drip. Antibiotics per ID. Given 2L NS bolus with levophed gtt 04/06: Family discussion with Dr. Grayson for goals of care. CXR shows possible mucus plug, continue CPT as FiO2 is being able to be weaned. Potassium repleted. Weaning fentnyl gtt. 04/07: Ultrasound guided thoracentesis today scheduled, inadequate amount of pleural effusion on so not completed. Patient was started on Levophed overnight which was weaned off this morning however had to be started twice a day. Remains on fentanyl and Precedex. Cardiology discontinued BB and ACEi in setting of hypotension. 04/08: COVID-19 PCR negative. Routine EEG ordered by cardiology which showed ST changes, cardiology aware. They will continue conservative treatment. Repeat troponins 0.030 which are less than admit of 0.048. Dr. Grayson had a long discussion with with the use of agriculture science teacher today at bedside and has not made a decision regarding goals of care. Possible consult to surgery for trach/PEG early next week. Continues to require Precedex and fentanyl drip for sedation. Carvedilol/lisinopril discontinued as patient is continuously on Levophed. 04/09: No acute events reported overnight, remains on fentanyl, Precedex and Levophed drips. Dr. Grayson and Dr. Pineda updated family at bedside extensively today. Consulted surgery for trach/PEG. COVID-19 PCR negative. 04/10: Patient noted to have desaturation episodes, FiO2 increased slightly to 35%. Will add Mucomyst. Remains on fentanyl and Precedex. Off of Levophed. Surgery consulted for trach/PEG. 04/11: FiO2 increased over night likely related to hypoxia, continues on fent gtt, weaning precedex gtt as he is also on Seroquel. Will d/w CCM re scheduled or prn oxycodone 04/12: Periods of hypoxia and tachycardia this am. Symptoms improved post deep suction and tracheal lavage, Repeat CXR noted with no significant change. Continue CPT and mucomyst. Plan for possible trach/PEG tomorrow by general surgery. 04/13: Remains stable on the vent. Patient is wake and tracking but does not follow simple commands. No report of hypoxia from overnight, continue CPT and mucomyst. Plan for track and PEG today by General Surgery. Plan for LTAC placement post procedure, case management to arrange. 04/14: VIRGILIO overnight, Trach and PEG postponed for today by general surgery. Plan for LTAC placement post procedure, case management to arrange. 04/15: S/p Trach and PEG. Up to 80% FiO2 this am, this am CXR noted suggesting possible mucus plug. D/W CCM plan for bronch today. Continue CPT and mucomyst. Plan of care thoroughly discussed with patient's and son (who translated for ) at the bedside. Per , strategic sourcing manager had already discussed the risks and benefits of the procedure yesterday. She verbalized understanding and agreed with procedure and current care plan, consent signed. Okay to use PEG-tube for meds this am, resume TF once okay by general Surgery. Case management to arrange LTAC placement. 04/16: s/p Bronchocopy by CCM. FiO2 down to 60%, angela 10 this am. This am CXR with moderate improvement. Continue CPT and mucomyst, wean Fio2 as tolerated for SPO2 above 92%. Patient is tolerating TF, advance to goal as ordered. Possible LTAC placement, case management to arrange. 04/17: VIRGILIO overnight. remains stable on the vent, recent CXR and this am ABG noted. Continue CPT and mucomyst, wean Fio2 as tolerated. 04/18: Remains stable on the vent, Fio2 down to 55% and peep of 8 this am. Continue to wean as tolerated, CPT, and mucomyst. Dsiposition- LTAC placement, case management to arrange. 04/19: No acute events overnight. Continue current management. 04/20: No acute events overnight, continue current management 04/21: Patient had chest ultrasound which showed trace pleural effusions, chest x-ray improved after the addition of Mucomyst yesterday. FiO2 55-65%. No acute events overnight. more interactive today. 04/22: Seroquel changed to BID, FiO2 was increased to 60%. RT increased FIO2 to 100 d/t desaturation into the 80s but was able to wean down. CCM increased PEEP and decreased FiO2. 04/23: CCM increase PEEP, no acute events reported overnight. 04/24: Spoke to RT about decreasing FiO2 as tolerated. No acute events reported overnight. Continue supportive management. 04/25: Weaning as tolerated. no acute events overnight. RT to attempt CPAP again today Hospitalist Physical - Constitutional Vitals: Temp Pulse Resp BP Pulse Ox 99.5 F 89 16 105/68 97 04/25/22 11:36 04/25/22 13:00 04/25/22 13:00 04/25/22 13:00 04/25/22 13:00 General appearance: Present: no acute distress, cachectic, other (trach/) - EENT Eyes: Present: PERRL, EOM intact ENT: clear oral mucosa - Neck Neck: Present: normal ROM - Respiratory Respiratory effort: normal Respiratory: bilateral: diminished, rhonchi - Cardiovascular Rhythm: regular Heart Sounds: Present: S1 & S2. Absent: systolic murmur, diastolic murmur - Extremities Extremities: no ischemia, pulses intact, pulses symmetrical, normal temperature, normal color Peripheral Pulses: within normal limits - Abdominal General gastrointestinal: soft, non-tender, non-distended, normal bowel sounds - Psychiatric Psychiatric: other - Neurologic Neurologic: other (follows commands with BUE, PERRL, intact cough/gag) HEART Score - HEART Score Troponin: Troponin T 0.031 ng/mL (0.00-0.029) H 04/08/22 17:47 Results - Labs CBC & Chem 7: 04/24/22 04:29 04/24/22 04:29 Labs: Laboratory Last Values WBC 14.4 K/mm3 (4.5-11.0) H 04/24/22 04:29 RBC 2.74 M/mm3 (3.65-5.03) L 04/24/22 04:29 Hgb 8.4 gm/dl (11.8-15.2) L 04/24/22 04:29 Hct 25.7 % (35.5-45.6) L 04/24/22 04:29 MCV 94 fl (84-94) 04/24/22 04:29 MCH 31 pg (28-32) 04/24/22 04:29 MCHC 33 % (32-34) 04/24/22 04:29 RDW 13.6 % (13.2-15.2) 04/24/22 04:29 Plt Count 353 K/mm3 (140-440) 04/24/22 04:29 Lymph % (Auto) 4.3 % (13.4-35.0) L 04/07/22 03:51 Blaine % (Auto) 8.8 % (0.0-7.3) H 04/07/22 03:51 Eos % (Auto) 0.1 % (0.0-4.3) 04/07/22 03:51 Baso % (Auto) 0.2 % (0.0-1.8) 04/07/22 03:51 Lymph # (Auto) 0.6 K/mm3 (1.2-5.4) L 04/07/22 03:51 Blaine # (Auto) 1.3 K/mm3 (0.0-0.8) H 04/07/22 03:51 Eos # (Auto) 0.0 K/mm3 (0.0-0.4) 04/07/22 03:51 Baso # (Auto) 0.0 K/mm3 (0.0-0.1) 04/07/22 03:51 Add Manual Diff Complete 04/02/22 19:39 Total Counted 100 04/02/22 19:39 Seg Neutrophils % 86.6 % (40.0-70.0) H 04/07/22 03:51 Seg Neuts % (Manual) 94.0 % (40.0-70.0) H 04/02/22 19:39 Band Neutrophils % 0 % 04/02/22 19:39 Lymphocytes % (Manual) 1.0 % (13.4-35.0) L 04/02/22 19:39 Reactive Lymphs % (Man) 0 % 04/02/22 19:39 Monocytes % (Manual) 5.0 % (0.0-7.3) 04/02/22 19:39 Eosinophils % (Manual) 0 % (0.0-4.3) 04/02/22 19:39 Basophils % (Manual) 0 % (0.0-1.8) 04/02/22 19:39 Metamyelocytes % 0 % 04/02/22 19:39 Myelocytes % 0 % 04/02/22 19:39 Promyelocytes % 0 % 04/02/22 19:39 Blast Cells % 0 % 04/02/22 19:39 Nucleated RBC % Not Reportable 04/02/22 19:39 Seg Neutrophils # 12.7 K/mm3 (1.8-7.7) H 04/07/22 03:51 Seg Neutrophils # Man 13.4 K/mm3 (1.8-7.7) H 04/02/22 19:39 Band Neutrophils # 0.0 K/mm3 04/02/22 19:39 Lymphocytes # (Manual) 0.1 K/mm3 (1.2-5.4) L 04/02/22 19:39 Abs React Lymphs (Man) 0.0 K/mm3 04/02/22 19:39 Monocytes # (Manual) 0.7 K/mm3 (0.0-0.8) 04/02/22 19:39 Eosinophils # (Manual) 0.0 K/mm3 (0.0-0.4) 04/02/22 19:39 Basophils # (Manual) 0.0 K/mm3 (0.0-0.1) 04/02/22 19:39 Metamyelocytes # 0.0 K/mm3 04/02/22 19:39 Myelocytes # 0.0 K/mm3 04/02/22 19:39 Promyelocytes # 0.0 K/mm3 04/02/22 19:39 Blast Cells # 0.0 K/mm3 04/02/22 19:39 WBC Morphology Not Reportable 04/02/22 19:39 Hypersegmented Neuts Not Reportable 04/02/22 19:39 Hyposegmented Neuts Not Reportable 04/02/22 19:39 Hypogranular Neuts Not Reportable 04/02/22 19:39 Smudge Cells Not Reportable 04/02/22 19:39 Toxic Granulation Not Reportable 04/02/22 19:39 Toxic Vacuolation Not Reportable 04/02/22 19:39 Dohle Bodies Not Reportable 04/02/22 19:39 Pelger-Huet Anomaly Not Reportable 04/02/22 19:39 Terry Rods Not Reportable 04/02/22 19:39 Platelet Estimate Consistent w auto 04/02/22 19:39 Clumped Platelets Not Reportable 04/02/22 19:39 Plt Clumps, EDTA Not Reportable 04/02/22 19:39 Large Platelets Not Reportable 04/02/22 19:39 Giant Platelets Not Reportable 04/02/22 19:39 Platelet Satelliting Not Reportable 04/02/22 19:39 Plt Morphology Comment Not Reportable 04/02/22 19:39 RBC Morphology Not Reportable 04/02/22 19:39 Dimorphic RBCs Not Reportable 04/02/22 19:39 Polychromasia Not Reportable 04/02/22 19:39 Hypochromasia Not Reportable 04/02/22 19:39 Poikilocytosis Not Reportable 04/02/22 19:39 Anisocytosis 1+ 04/02/22 19:39 Microcytosis Not Reportable 04/02/22 19:39 Macrocytosis Not Reportable 04/02/22 19:39 Spherocytes Not Reportable 04/02/22 19:39 Pappenheimer Bodies Not Reportable 04/02/22 19:39 Sickle Cells Not Reportable 04/02/22 19:39 Target Cells Not Reportable 04/02/22 19:39 Tear Drop Cells Not Reportable 04/02/22 19:39 Ovalocytes Not Reportable 04/02/22 19:39 Helmet Cells Not Reportable 04/02/22 19:39 [place] Bodies Not Reportable 04/02/22 19:39 [place] Rings Not Reportable 04/02/22 19:39 [place] Cells Not Reportable 04/02/22 19:39 Bite Cells Not Reportable 04/02/22 19:39 Crenated Cell Not Reportable 04/02/22 19:39 Elliptocytes Not Reportable 04/02/22 19:39 Acanthocytes (Spur) Not Reportable 04/02/22 19:39 Rouleaux Not Reportable 04/02/22 19:39 Hemoglobin C Crystals Not Reportable 04/02/22 19:39 Schistocytes Not Reportable 04/02/22 19:39 Malaria parasites Not Reportable 04/02/22 19:39 [place] Bodies Not Reportable 04/02/22 19:39 Hem Pathologist Commnt No 04/02/22 19:39 PT 13.6 Sec. (12.2-14.9) 04/13/22 04:30 INR 0.94 (0.87-1.13) 04/13/22 04:30 APTT 35.7 Sec. (24.2-36.6) 04/07/22 03:51 ABG pH 7.457 pH Units (7.350-7.450) H 04/25/22 09:00 ABG pCO2 61.7 mm Hg 04/25/22 09:00 ABG pO2 66.7 mm Hg (80.0-90.0) L 04/25/22 09:00 ABG HCO3 42.6 mmol/L (20.0-26.0) H 04/25/22 09:00 ABG O2 Saturation 95.7 % (95.0-99.0) 04/25/22 09:00 ABG O2 Content 20.0 (0.0-44) 04/25/22 09:00 ABG Base Excess 15.3 mmol/L (-2.0-3.0) H 04/25/22 09:00 ABG Hemoglobin 8.8 gm/dl (14.0-18.0) L 04/25/22 09:00 ABG Carboxyhemoglobin 1.3 % (0.0-5.0) 04/25/22 09:00 ABG Methemoglobin 0.4 % (0.0-1.5) 04/25/22 09:00 Oxyhemoglobin 94.1 % (95.0-99.0) L 04/25/22 09:00 FiO2 35 % 04/25/22 09:00 Sodium 137 mmol/L (137-145) 04/24/22 04:29 Potassium 4.5 mmol/L (3.6-5.0) 04/24/22 04:29 Chloride 90.7 mmol/L (98-107) L 04/24/22 04:29 Carbon Dioxide 40 mmol/L (22-30) H 04/24/22 04:29 Anion Gap 11 mmol/L 04/24/22 04:29 BUN 19 mg/dL (9-20) 04/24/22 04:29 Creatinine < 0.2 mg/dL (0.8-1.3) L 04/24/22 04:29 Estimated GFR > 60 ml/min 04/24/22 04:29 BUN/Creatinine Ratio 95 % 04/24/22 04:29 Glucose 133 mg/dL (75-100) H 04/24/22 04:29 POC Glucose 128 mg/dL (70-105) H 04/20/22 11:40 Lactic Acid 1.90 mmol/L (0.7-2.0) 04/02/22 19:39 Calcium 8.5 mg/dL (8.4-10.2) 04/24/22 04:29 Phosphorus 2.80 mg/dL (2.5-4.5) 04/24/22 04:29 Magnesium 1.90 mg/dL (1.7-2.3) 04/24/22 04:29 Total Bilirubin 0.80 mg/dL (0.1-1.2) 04/02/22 19:39 AST 15 units/L (5-40) 04/02/22 19:39 ALT 9 units/L (7-56) 04/02/22 19:39 Alkaline Phosphatase 43 units/L (35-129) 04/02/22 19:39 Total Creatine Kinase 46 units/L (55-170) L 04/08/22 17:47 CK-MB (CK-2) 2.6 ng/mL (0.0-4.0) 04/08/22 17:47 CK-MB (CK-2) Rel Index 5.6 (0-4) H 04/08/22 17:47 Troponin T 0.031 ng/mL (0.00-0.029) H 04/08/22 17:47 C-Reactive Protein 31.60 mg/dL (0.00-1.30) H 04/04/22 04:18 Total Protein 4.6 g/dL (6.3-8.2) L 04/02/22 19:39 Albumin 2.7 g/dL (3.9-5) L 04/02/22 19:39 Albumin/Globulin Ratio 1.4 % 04/02/22 19:39 Triglycerides 80 mg/dL (2-149) 04/02/22 19:39 Cholesterol 94 mg/dL (50-199) 04/02/22 19:39 LDL Cholesterol Direct 27 mg/dL (50-130) L 04/02/22 19:39 HDL Cholesterol 47 mg/dL (40-59) 04/02/22 19:39 Cholesterol/HDL Ratio 2.00 % 04/02/22 19:39 Procalcitonin 0.08 ng/mL (<0.15) 04/04/22 04:18 Urine Color Aracely (Yellow) 04/05/22 17:45 Urine Turbidity Cloudy (Clear) 04/05/22 17:45 Urine pH 5.0 (5.0-7.0) 04/05/22 17:45 Ur Specific [place] 1.021 (1.003-1.030) 04/05/22 17:45 Urine Protein 30 mg/dl mg/dL (Negative) 04/05/22 17:45 Urine Glucose (UA) Neg mg/dL (Negative) 04/05/22 17:45 Urine Ketones Tr mg/dL (Negative) 04/05/22 17:45 Urine Blood Sm (Negative) 04/05/22 17:45 Urine Nitrite Neg (Negative) 04/05/22 17:45 Urine Bilirubin Neg (Negative) 04/05/22 17:45 Urine Urobilinogen < 2.0 mg/dL (<2.0) 04/05/22 17:45 Ur Leukocyte Esterase Tr (Negative) 04/05/22 17:45 Urine WBC (Auto) 8.0 /HPF (0.0-6.0) H 04/05/22 17:45 Urine RBC (Auto) 3.0 /HPF (0.0-6.0) 04/05/22 17:45 U Epithel Cells (Auto) 2.0 /HPF (0-13.0) 04/05/22 17:45 Urine Bacteria (Auto) 1+ /HPF (Negative) 04/02/22 Unknown Hyaline Casts 1 /LPF 04/05/22 17:45 Urine Mucus 3+ /HPF 04/05/22 17:45 Nasal Screen MRSA (PCR) Negative (Negative) 04/05/22 12:37 Vancomycin Trough 6.0 ug/mL (5.0-20.0) 04/05/22 18:53 Coronavirus (PCR) Negative (Negative) 04/07/22 14:52 Perez/IV: Voiding Method Condom Catheter Active Medications - Current Medications Current Medications: Generic Name Dose Route Start Last Admin Trade Name Freq PRN Reason Stop Dose Admin Acetaminophen 650 mg 04/02/22 23:53 04/21/22 16:23 Acetaminophen 325 Mg Tab PO 650 mg Q6H PRN Administration Pain MILD(1-3)/Fever >100.5/FAITH Acetylcysteine 200 mg 04/21/22 16:00 04/25/22 07:22 Acetylcysteine 20% 200 Mg/1 Ml *For Inhalation Use* INHALATION 200 mg Q8HRT SEGUNDO Administration Albuterol 2.5 mg 04/06/22 16:00 04/25/22 07:22 Albuterol 2.5 Mg/3 Ml Nebu IH 2.5 mg Q8HRT SEGUNDO Administration Bisacodyl 10 mg 04/07/22 09:44 04/12/22 10:06 Bisacodyl 10 Mg Rect Supp MI 10 mg QDAY PRN Administration Constipation Dextrose 50 ml 04/06/22 17:54 Dextrose 50% In Water (25gm) 50 Ml Syringe IV Q30MIN PRN Hypoglycemia Protocol Docusate Sodium 100 mg 04/03/22 15:00 04/25/22 09:14 Docusate Sodium 100 Mg/10 Ml Oral Liqd PO Not Given BID SEGUNDO Famotidine 20 mg 04/06/22 10:00 04/25/22 09:13 Famotidine 20 Mg Tab FEEDTUBE 20 mg BID SEGUNDO Administration Fentanyl 50 mcg 04/04/22 15:56 04/23/22 17:00 Fentanyl 100 Mcg/2 Ml Inj IV 50 mcg Q2HR PRN Administration For CPOT of greater than 3 Heparin Sodium (Porcine) 5,000 unit 04/03/22 06:00 04/25/22 13:01 Heparin 5,000 Unit/1 Ml Vial SUB-Q 5,000 unit Q8HR SEGUNDO Administration Insulin Human Regular 0 units 04/06/22 18:00 04/25/22 12:17 Insulin Regular, Human 100 Units/1 Ml SUB-Q Not Given Q6H SEGUNDO Protocol Magnesium Hydroxide 30 ml 04/02/22 23:53 Magnesium Hydroxide (Mom) Oral Liqd Udc PO Q4H PRN Constipation Metoprolol Tartrate 25 mg 04/16/22 18:00 04/25/22 11:57 Metoprolol Tartrate 25 Mg Tab FEEDTUBE 25 mg Q6HR SEGUNDO Administration Ondansetron HCl 4 mg 04/02/22 23:53 Ondansetron 4 Mg/2 Ml Inj IV Q8H PRN Nausea And Vomiting Polyethylene Glycol 17 gm 04/08/22 10:00 04/25/22 09:14 Polyethylene Glycol 3350 17 Gm Powder PO Not Given QDAY SEGUNDO Quetiapine Fumarate 50 mg 04/22/22 10:00 04/25/22 09:13 Quetiapine 25 Mg Tab PO 50 mg BID SEGUNDO Administration Senna 17.6 mg 04/03/22 22:00 04/25/22 09:14 Sennosides Oral Liqd 8.8 Mg/5 Ml Oral Liqd PO Not Given Q12HR SEGUNDO Sodium Chloride 10 ml 04/03/22 10:00 04/25/22 09:13 Sodium Chloride 0.9% 10 Ml Flush Syringe IV 10 ml BID SEGUNDO Administration Sodium Chloride 10 ml 04/02/22 23:53 Sodium Chloride 0.9% 10 Ml Flush Syringe IV PRN PRN LINE FLUSH Nutrition/Malnutrition Assess - Dietary Evaluation Nutrition/Malnutrition Findings: Nutrition Notes Start: 04/04/22 13:13 Freq: Status: Active Protocol: Document 04/20/22 11:36 COLLEEN (Rec: 04/20/22 12:00 COLLEEN [id number]) Nutrition Notes Initial or Follow up Reassessment Current Diagnosis Coronary Artery Disease, Respiratory Failure, Malnutrition Other Pertinent Diagnosis HCAP, HFpEF, ALS, Pleural Effusion, R-Lung Collapse, Hypotension, ... Current Diet TF-Vital AF 1.2 Inderjit @ 50 ml/hr (since D 04/15). Labs/Tests 04/19: Cl 96.2, CO2 40, BUN 24 , Crea <0.2, Glu 125, Ca 8.3. Pertinent Medications 04/20: Nutritionally unremarkable. Height 5 ft 4.8 in Weight 46.8 kg [place] Body Weight (kg) 61.27 BMI 17.2 Weight change and time frame No body weight change reported in 2 weeks. Weight Status Underweight Subjective/Other Information RD consult for routine F/U on TF tolerance/continuation. TF continues as prescribed, and well tolerated, according to RN notes. RN note on 04/20/22 06:13: No acute changes throughout night . Trach intact to vent, with Fi02 @ 55%. Peg intact with patient tolerating tube feedings as ordered. Vitals stable. Currently 93/53, 93, 14, 95%. Pt continues on Mechanical ventilation, O2 saturation @ 96%, according to Physical Assessment Histroy notes. Pt presents constipation, according to Physical Assessment Histroy notes. Tracheostomy and PEG tube placement on 04/15, well tolerated, according to Progress notes. LTAC placement still pending. Percent of energy/protein needs met: Prescribed TF-Vital AF 1.2 Inderjit @ 50 ml/hr provides for energy/protein needs (1,450 Kcal/91 g) during LOS, 98% Kcal; 100% AA. Burn Absent Trauma Absent GI Symptoms Constipation Difficulty In Swallowing,Chewing Food Allergy No Skin Integrity/Comment Sacral open wound. Current % PO Other Minimum of two criteria No #1 Nutrition Diagnosis Inadequate oral intake Diagnosis Progress(for reassessment Continues documentation) Is patient on ventilator? Yes Is Patient Ambulatory and/or Out of Bed No REE-([facility]-confined to bed) [phone] Calculation Used for Recommendations [facility] Additional Notes Protein: 1.2-2 g/Kg IBW; 73- 122 g/day. Fluids: 1 ml/Kcal, or as per MD. Nutrition Intervention Nutrition Support: Continue TF-Vital AF 1.2 Inderjit @ 50 ml/hr. Flush: 80 ml water Q 4 hr, or as per MD. Kcal 1,450 Protein (gm) 91 Carbohydrates (gm) 134 Fat (gm) 65 Fluid (mL) 980 Fiber (gm) 6 % RDI: 98% Kcal; 100% AA. Goal #1 Provide at least 75% of energy /protein needs through Enteral Feeding during LOS. Follow-Up By: 04/27/22 Additional Comments Continue monitoring TF tolerance and BM. <NORM GRAYSON - Last Filed: 04/28/22 14:36> Assessment and Plan Assessment and plan: I saw and evaluated the patient. Discussed with the nurse practitioner and agree with their findings and plan as documented in this note. Hospitalist Physical - Constitutional Vitals: Temp Pulse Resp BP Pulse Ox 99.1 F 109 H 15 111/66 100 04/28/22 11:43 04/28/22 13:00 04/28/22 13:00 04/28/22 13:00 04/28/22 13:00 HEART Score - HEART Score Troponin: Troponin T 0.031 ng/mL (0.00-0.029) H 04/08/22 17:47 Results - Labs CBC & Chem 7: 04/26/22 04:22 04/26/22 04:22 Labs: Laboratory Last Values WBC 10.0 K/mm3 (4.5-11.0) 04/26/22 04:22 RBC 2.88 M/mm3 (3.65-5.03) L 04/26/22 04:22 Hgb 8.9 gm/dl (11.8-15.2) L 04/26/22 04:22 Hct 26.8 % (35.5-45.6) L 04/26/22 04:22 MCV 93 fl (84-94) 04/26/22 04:22 MCH 31 pg (28-32) 04/26/22 04:22 MCHC 33 % (32-34) 04/26/22 04:22 RDW 13.8 % (13.2-15.2) 04/26/22 04:22 Plt Count 376 K/mm3 (140-440) 04/26/22 04:22 Lymph % (Auto) 4.3 % (13.4-35.0) L 04/07/22 03:51 [place] % (Auto) 8.8 % (0.0-7.3) H 04/07/22 03:51 Eos % (Auto) 0.1 % (0.0-4.3) 04/07/22 03:51 Baso % (Auto) 0.2 % (0.0-1.8) 04/07/22 03:51 Lymph # (Auto) 0.6 K/mm3 (1.2-5.4) L 04/07/22 03:51 [place] # (Auto) 1.3 K/mm3 (0.0-0.8) H 04/07/22 03:51 Eos # (Auto) 0.0 K/mm3 (0.0-0.4) 04/07/22 03:51 Baso # (Auto) 0.0 K/mm3 (0.0-0.1) 04/07/22 03:51 Add Manual Diff Complete 04/02/22 19:39 Total Counted 100 04/02/22 19:39 Seg Neutrophils % 86.6 % (40.0-70.0) H 04/07/22 03:51 Seg Neuts % (Manual) 94.0 % (40.0-70.0) H 04/02/22 19:39 Band Neutrophils % 0 % 04/02/22 19:39 Lymphocytes % (Manual) 1.0 % (13.4-35.0) L 04/02/22 19:39 Reactive Lymphs % (Man) 0 % 04/02/22 19:39 Monocytes % (Manual) 5.0 % (0.0-7.3) 04/02/22 19:39 Eosinophils % (Manual) 0 % (0.0-4.3) 04/02/22 19:39 Basophils % (Manual) 0 % (0.0-1.8) 04/02/22 19:39 Metamyelocytes % 0 % 04/02/22 19:39 Myelocytes % 0 % 04/02/22 19:39 Promyelocytes % 0 % 04/02/22 19:39 Blast Cells % 0 % 04/02/22 19:39 Nucleated RBC % Not Reportable 04/02/22 19:39 Seg Neutrophils # 12.7 K/mm3 (1.8-7.7) H 04/07/22 03:51 Seg Neutrophils # Man 13.4 K/mm3 (1.8-7.7) H 04/02/22 19:39 Band Neutrophils # 0.0 K/mm3 04/02/22 19:39 Lymphocytes # (Manual) 0.1 K/mm3 (1.2-5.4) L 04/02/22 19:39 Abs React Lymphs (Man) 0.0 K/mm3 04/02/22 19:39 Monocytes # (Manual) 0.7 K/mm3 (0.0-0.8) 04/02/22 19:39 Eosinophils # (Manual) 0.0 K/mm3 (0.0-0.4) 04/02/22 19:39 Basophils # (Manual) 0.0 K/mm3 (0.0-0.1) 04/02/22 19:39 Metamyelocytes # 0.0 K/mm3 04/02/22 19:39 Myelocytes # 0.0 K/mm3 04/02/22 19:39 Promyelocytes # 0.0 K/mm3 04/02/22 19:39 Blast Cells # 0.0 K/mm3 04/02/22 19:39 WBC Morphology Not Reportable 04/02/22 19:39 Hypersegmented Neuts Not Reportable 04/02/22 19:39 Hyposegmented Neuts Not Reportable 04/02/22 19:39 Hypogranular Neuts Not Reportable 04/02/22 19:39 Smudge Cells Not Reportable 04/02/22 19:39 Toxic Granulation Not Reportable 04/02/22 19:39 Toxic Vacuolation Not Reportable 04/02/22 19:39 Dohle Bodies Not Reportable 04/02/22 19:39 Pelger-Huet Anomaly Not Reportable 04/02/22 19:39 Terry Rods Not Reportable 04/02/22 19:39 Platelet Estimate Consistent w auto 04/02/22 19:39 Clumped Platelets Not Reportable 04/02/22 19:39 Plt Clumps, EDTA Not Reportable 04/02/22 19:39 Large Platelets Not Reportable 04/02/22 19:39 Giant Platelets Not Reportable 04/02/22 19:39 Platelet Satelliting Not Reportable 04/02/22 19:39 Plt Morphology Comment Not Reportable 04/02/22 19:39 RBC Morphology Not Reportable 04/02/22 19:39 Dimorphic RBCs Not Reportable 04/02/22 19:39 Polychromasia Not Reportable 04/02/22 19:39 Hypochromasia Not Reportable 04/02/22 19:39 Poikilocytosis Not Reportable 04/02/22 19:39 Anisocytosis 1+ 04/02/22 19:39 Microcytosis Not Reportable 04/02/22 19:39 Macrocytosis Not Reportable 04/02/22 19:39 Spherocytes Not Reportable 04/02/22 19:39 Pappenheimer Bodies Not Reportable 04/02/22 19:39 Sickle Cells Not Reportable 04/02/22 19:39 Target Cells Not Reportable 04/02/22 19:39 Tear Drop Cells Not Reportable 04/02/22 19:39 Ovalocytes Not Reportable 04/02/22 19:39 Helmet Cells Not Reportable 04/02/22 19:39 [place] Bodies Not Reportable 04/02/22 19:39 [place] Rings Not Reportable 04/02/22 19:39 Cheikh Cells Not Reportable 04/02/22 19:39 Bite Cells Not Reportable 04/02/22 19:39 Crenated Cell Not Reportable 04/02/22 19:39 Elliptocytes Not Reportable 04/02/22 19:39 Acanthocytes (Spur) Not Reportable 04/02/22 19:39 Rouleaux Not Reportable 04/02/22 19:39 Hemoglobin C Crystals Not Reportable 04/02/22 19:39 Schistocytes Not Reportable 04/02/22 19:39 Malaria parasites Not Reportable 04/02/22 19:39 [place] Bodies Not Reportable 04/02/22 19:39 Hem Pathologist Commnt No 04/02/22 19:39 PT 13.6 Sec. (12.2-14.9) 04/13/22 04:30 INR 0.94 (0.87-1.13) 04/13/22 04:30 APTT 35.7 Sec. (24.2-36.6) 04/07/22 03:51 ABG pH 7.457 pH Units (7.350-7.450) H 04/25/22 09:00 ABG pCO2 61.7 mm Hg 04/25/22 09:00 ABG pO2 66.7 mm Hg (80.0-90.0) L 04/25/22 09:00 ABG HCO3 42.6 mmol/L (20.0-26.0) H 04/25/22 09:00 ABG O2 Saturation 95.7 % (95.0-99.0) 04/25/22 09:00 ABG O2 Content 20.0 (0.0-44) 04/25/22 09:00 ABG Base Excess 15.3 mmol/L (-2.0-3.0) H 04/25/22 09:00 ABG Hemoglobin 8.8 gm/dl (14.0-18.0) L 04/25/22 09:00 ABG Carboxyhemoglobin 1.3 % (0.0-5.0) 04/25/22 09:00 ABG Methemoglobin 0.4 % (0.0-1.5) 04/25/22 09:00 Oxyhemoglobin 94.1 % (95.0-99.0) L 04/25/22 09:00 FiO2 35 % 04/25/22 09:00 Sodium 137 mmol/L (137-145) 04/26/22 04:22 Potassium 4.3 mmol/L (3.6-5.0) 04/26/22 04:22 Chloride 93.2 mmol/L (98-107) L 04/26/22 04:22 Carbon Dioxide 37 mmol/L (22-30) H 04/26/22 04:22 Anion Gap 11 mmol/L 04/26/22 04:22 BUN 16 mg/dL (9-20) 04/26/22 04:22 Creatinine < 0.2 mg/dL (0.8-1.3) L 04/26/22 04:22 Estimated GFR > 60 ml/min 04/26/22 04:22 BUN/Creatinine Ratio 80 % 04/26/22 04:22 Glucose 114 mg/dL (75-100) H 04/26/22 04:22 POC Glucose 128 mg/dL (70-105) H 04/20/22 11:40 Lactic Acid 1.90 mmol/L (0.7-2.0) 04/02/22 19:39 Calcium 8.5 mg/dL (8.4-10.2) 04/26/22 04:22 Phosphorus 3.60 mg/dL (2.5-4.5) 04/26/22 04:22 Magnesium 1.90 mg/dL (1.7-2.3) 04/26/22 04:22 Total Bilirubin 0.80 mg/dL (0.1-1.2) 04/02/22 19:39 AST 15 units/L (5-40) 04/02/22 19:39 ALT 9 units/L (7-56) 04/02/22 19:39 Alkaline Phosphatase 43 units/L (35-129) 04/02/22 19:39 Total Creatine Kinase 46 units/L (55-170) L 04/08/22 17:47 CK-MB (CK-2) 2.6 ng/mL (0.0-4.0) 04/08/22 17:47 CK-MB (CK-2) Rel Index 5.6 (0-4) H 04/08/22 17:47 Troponin T 0.031 ng/mL (0.00-0.029) H 04/08/22 17:47 C-Reactive Protein 31.60 mg/dL (0.00-1.30) H 04/04/22 04:18 Total Protein 4.6 g/dL (6.3-8.2) L 04/02/22 19:39 Albumin 2.7 g/dL (3.9-5) L 04/02/22 19:39 Albumin/Globulin Ratio 1.4 % 04/02/22 19:39 Triglycerides 80 mg/dL (2-149) 04/02/22 19:39 Cholesterol 94 mg/dL (50-199) 04/02/22 19:39 LDL Cholesterol Direct 27 mg/dL (50-130) L 04/02/22 19:39 HDL Cholesterol 47 mg/dL (40-59) 04/02/22 19:39 Cholesterol/HDL Ratio 2.00 % 04/02/22 19:39 Procalcitonin 0.08 ng/mL (<0.15) 04/04/22 04:18 Urine Color Aracely (Yellow) 04/05/22 17:45 Urine Turbidity Cloudy (Clear) 04/05/22 17:45 Urine pH 5.0 (5.0-7.0) 04/05/22 17:45 Ur Specific [place] 1.021 (1.003-1.030) 04/05/22 17:45 Urine Protein 30 mg/dl mg/dL (Negative) 04/05/22 17:45 Urine Glucose (UA) Neg mg/dL (Negative) 04/05/22 17:45 Urine Ketones Tr mg/dL (Negative) 04/05/22 17:45 Urine Blood Sm (Negative) 04/05/22 17:45 Urine Nitrite Neg (Negative) 04/05/22 17:45 Urine Bilirubin Neg (Negative) 04/05/22 17:45 Urine Urobilinogen < 2.0 mg/dL (<2.0) 04/05/22 17:45 Ur Leukocyte Esterase Tr (Negative) 04/05/22 17:45 Urine WBC (Auto) 8.0 /HPF (0.0-6.0) H 04/05/22 17:45 Urine RBC (Auto) 3.0 /HPF (0.0-6.0) 04/05/22 17:45 U Epithel Cells (Auto) 2.0 /HPF (0-13.0) 04/05/22 17:45 Urine Bacteria (Auto) 1+ /HPF (Negative) 04/02/22 Unknown Hyaline Casts 1 /LPF 04/05/22 17:45 Urine Mucus 3+ /HPF 04/05/22 17:45 Nasal Screen MRSA (PCR) Negative (Negative) 04/05/22 12:37 Vancomycin Trough 6.0 ug/mL (5.0-20.0) 04/05/22 18:53 Coronavirus (PCR) Negative (Negative) 04/07/22 14:52 Perez/IV: Voiding Method Condom Catheter Active Medications - Current Medications Current Medications: Generic Name Dose Route Start Last Admin Trade Name Freq PRN Reason Stop Dose Admin Acetaminophen 650 mg 04/02/22 23:53 04/21/22 16:23 Acetaminophen 325 Mg Tab PO 650 mg Q6H PRN Administration Pain MILD(1-3)/Fever >100.5/FAITH Acetylcysteine 200 mg 04/21/22 16:00 04/28/22 07:15 Acetylcysteine 20% 200 Mg/1 Ml *For Inhalation Use* INHALATION 200 mg Q8HRT SEGUNDO Administration Albuterol 2.5 mg 04/06/22 16:00 04/28/22 07:14 Albuterol 2.5 Mg/3 Ml Nebu IH 2.5 mg Q8HRT SEGUNDO Administration Bisacodyl 10 mg 04/07/22 09:44 04/12/22 10:06 Bisacodyl 10 Mg Rect Supp MI 10 mg QDAY PRN Administration Constipation Dextrose 50 ml 04/06/22 17:54 Dextrose 50% In Water (25gm) 50 Ml Syringe IV Q30MIN PRN Hypoglycemia Protocol Docusate Sodium 100 mg 04/28/22 10:00 04/28/22 09:24 Docusate Sodium 100 Mg/10 Ml Oral Liqd FEEDTUBE 100 mg BID SEGUNDO Administration Famotidine 20 mg 04/06/22 10:00 04/28/22 09:24 Famotidine 20 Mg Tab FEEDTUBE 20 mg BID SEGUNDO Administration Fentanyl 50 mcg 04/04/22 15:56 04/23/22 17:00 Fentanyl 100 Mcg/2 Ml Inj IV 50 mcg Q2HR PRN Administration For CPOT of greater than 3 Heparin Sodium (Porcine) 5,000 unit 04/03/22 06:00 04/28/22 13:38 Heparin 5,000 Unit/1 Ml Vial SUB-Q 5,000 unit Q8HR SEGUNDO Administration Insulin Human Regular 0 units 04/06/22 18:00 04/28/22 13:39 Insulin Regular, Human 100 Units/1 Ml SUB-Q Not Given Q6H SEGUNDO Protocol Magnesium Hydroxide 30 ml 04/02/22 23:53 Magnesium Hydroxide (Mom) Oral Liqd Udc PO Q4H PRN Constipation Metoprolol Tartrate 25 mg 04/16/22 18:00 04/28/22 12:25 Metoprolol Tartrate 25 Mg Tab FEEDTUBE 25 mg Q6HR SEGUNDO Administration Ondansetron HCl 4 mg 04/02/22 23:53 Ondansetron 4 Mg/2 Ml Inj IV Q8H PRN Nausea And Vomiting Polyethylene Glycol 17 gm 04/08/22 10:00 04/28/22 09:24 Polyethylene Glycol 3350 17 Gm Powder PO 17 gm QDAY SEGUNDO Administration Quetiapine Fumarate 50 mg 04/28/22 10:00 04/28/22 09:25 Quetiapine 25 Mg Tab FEEDTUBE 50 mg BID SEGUNDO Administration Senna 17.6 mg 04/28/22 10:00 04/28/22 09:24 Sennosides Oral Liqd 8.8 Mg/5 Ml Oral Liqd FEEDTUBE 17.6 mg Q12HR SEGUNDO Administration Sodium Chloride 10 ml 04/03/22 10:00 04/28/22 09:26 Sodium Chloride 0.9% 10 Ml Flush Syringe IV 10 ml BID SEGUNDO Administration Sodium Chloride 10 ml 04/02/22 23:53 Sodium Chloride 0.9% 10 Ml Flush Syringe IV PRN PRN LINE FLUSH Nutrition/Malnutrition Assess - Dietary Evaluation Nutrition/Malnutrition Findings: Nutrition Notes Start: 04/04/22 13:13 Freq: Status: Active Protocol: Document 04/27/22 11:53 COLLEEN (Rec: 04/27/22 12:21 COLLEEN [email or web address]) Nutrition Notes Initial or Follow up Reassessment Current Diagnosis Coronary Artery Disease, Decubitus(Pressure Ulcer), Sepsis,Respiratory Failure, Malnutrition Other Pertinent Diagnosis HCAP, HFpEF, ALS, Pleural Effusion, R-Lung Collapse, .. . Current Diet TF-Vital AF 1.2 Inderjit @ 50 ml/hr (since D 04/15). Labs/Tests 04/27: Cl 93.2, CO2 37, Crea < 0.2, Glu 114. Pertinent Medications 04/27: Nutritionally unremarkable. Height 5 ft 4.8 in Weight 46.8 kg [place] Body Weight (kg) 61.27 BMI 17.2 Weight change and time frame No body weight change reported in 3 weeks. Weight Status Underweight Subjective/Other Information RD consult for routine F/U on TF tolerance/continuation. TF continues as prescribed, and well tolerated, according to RN notes. Pt continues on Mechanical ventilation, O2 saturation @ 96%, according to Physical Assessment Histroy notes. Pt continues to present constipation, according to Physical Assessment Histroy notes. 3 failed attempts to wean Pt from Mechanical Ventilation, Pt is back to previous settings in [facility], according to RN notes. Pt is pending authorization for LTAC placement, according to Progress notes. Percent of energy/protein needs met: Prescribed TF-Vital AF 1.2 Inderjit @ 50 ml/hr provides for energy/protein needs (1,450 Kcal/91 g) during LOS, 98% Kcal; 100% AA. Burn Absent Trauma Absent GI Symptoms Constipation Difficulty In Swallowing,Chewing Food Allergy No Skin Integrity/Comment Sacral open wound. Current % PO Other Minimum of two criteria No #1 Nutrition Diagnosis Inadequate oral intake Diagnosis Progress(for reassessment Continues documentation) Is patient on ventilator? Yes Is Patient Ambulatory and/or Out of Bed No REE-(Rankin-St. Jeor-confined to bed) [phone] Calculation Used for Recommendations Rankin-St Jeor Additional Notes Protein: 1.2-2 g/Kg IBW; 73- 122 g/day. Fluids: 1 ml/Kcal, or as per MD. Nutrition Intervention Nutrition Support: Continue TF-Vital AF 1.2 Inderjit @ 50 ml/hr. Flush: 80 ml water Q 4 hr, or as per MD. Kcal 1,450 Protein (gm) 91 Carbohydrates (gm) 134 Fat (gm) 65 Fluid (mL) 980 Fiber (gm) 6 % RDI: 98% Kcal; 100% AA. Goal #1 Provide at least 75% of energy /protein needs through Enteral Feeding during LOS. Follow-Up By: 05/04/22 Additional Comments Continue monitoring TF tolerance and BM.
--- NOTE | 2022-04-25 13:39 | Progress Note ---
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 Protein calorie malnutrition Acute Bronchopneumonia HCAP Hypotension NSTEMI Hypernatremia Acute Metabolic Encephalopathy H/o Amyotrophic Lateral Sclerosis Nonverbal at Baseline Thrombocytopenia Protein Caloric Malnutrition Constipation - failed bedside SBT trial with myself and RT in room even with p-supp of 20 cm H2O he only took a few breaths and failed due to low minute ventilation - placed back on full support - keep peep @ 12 for now - repeat ABG reviewed and acceptable - continue care as below otherwise; - bronchoscopy if develops large volume atelectasis - continue mucomyst nebs for thick tenacious secretions - continue scheduled CPT - continue Seroquel for anxiolysis / delirium - continue bronchodilators with pulmonary hygiene per RT - Daily SAT and SBT assessment as tolerated - continue to wean supplemental oxygen for target O2 sat's > 90% acutely - VAP bundle addressed - continue lung protective strategies - wean per pulmonary driven protocols otherwise - continue accuchecks with glycemic control per SSI (While critically ill target blood glucose of 140-180 mg/dL; avoid hypoglycemia) - sedation prn for target RASS 0 to -1 - avoid nephrotoxins, renally dose all medications - continue to avoid benzodiazepine's, reduce the possibility of delirium - AB's per ID rec's - prn analgesia per CPOT score - Maintenance of sleep-wake cycle, avoid delirium - continue enteral nutritional support at goal rate as tolerated - G.I. & VTE prophylaxis - PT/OT/ROM exercises - continue mobility protocols for pressure ulcer prophylaxis - Monitor hemodynamics closely - continue other care per attending / other consultants - discharge planning ongoing concurrently COVID SPECIFIC INTERVENTIONS - test pending .... Re-evaluate in am & prn CONDITION: CRITICAL PROGNOSIS: GUARDED CODE STATUS: FULL CODE The high probability of a clinically significant, sudden or life-threatening deterioration of the [respiratory, cardiovascular & neurologic] system(s) required my full and direct attention, intervention and personal management. The aggregate critical care time was [35] minutes without overlap. Time includes spent on; [x] Data Review and interpretation [x] Patient assessment and monitoring of vital signs [x] Documentation [x] Medication orders and management Subjective Date of service: 04/25/22 Principal diagnosis: Ac and ch hypercapnic and hypoxemic Resp Failure; ALS; HCAP; Sepsis; NSTEMI Interval history: Patient is seen today for: Acute and chronic hypercapnic and hypoxemic Respiratory Failure; ALS; HCAP; Sepsis; NSTEMI; AMS; Hypernatremia; Thrombocytopenia; Protein Caloric Malnutrition; Constipation Seen and examined at bedside; 24hour events reviewed; nursing and respiratory care staff consulted; no adverse overnight events reported to me; resting peacefully in bed; remains on MVS; FiO2 down to 35% with peep at 10; he is alert; no emesis or overt aspiration Objective Vital Signs - 12hr 04/25/22 04/25/22 04/25/22 01:55 02:00 03:00 Temperature Pulse Rate 107 H 103 H 95 H Pulse Rate [ Anterior Bilateral Throughout] Pulse Rate [ From Monitor] Respiratory 14 15 Rate Respiratory Rate [Anterior Bilateral Throughout] Blood Pressure 116/73 112/70 115/67 O2 Sat by Pulse 97 98 Oximetry O2 Sat by Pulse Oximetry [ Assessment] 04/25/22 04/25/22 04/25/22 04:00 05:00 06:00 Temperature 97.7 F Pulse Rate 92 H 96 H 94 H Pulse Rate [ Anterior Bilateral Throughout] Pulse Rate [ 88 From Monitor] Respiratory 14 15 14 Rate Respiratory Rate [Anterior Bilateral Throughout] Blood Pressure 125/72 125/72 139/79 O2 Sat by Pulse 100 100 89 Oximetry O2 Sat by Pulse Oximetry [ Assessment] 04/25/22 04/25/22 04/25/22 06:29 07:00 07:16 Temperature 99.7 F H Pulse Rate 85 77 Pulse Rate [ Anterior Bilateral Throughout] Pulse Rate [ From Monitor] Respiratory 14 Rate Respiratory Rate [Anterior Bilateral Throughout] Blood Pressure 139/79 125/67 O2 Sat by Pulse 93 Oximetry O2 Sat by Pulse Oximetry [ Assessment] 04/25/22 04/25/22 04/25/22 07:22 07:34 07:35 Temperature Pulse Rate 88 95 H Pulse Rate [ 86 Anterior Bilateral Throughout] Pulse Rate [ 87 From Monitor] Respiratory 14 Rate Respiratory 14 Rate [Anterior Bilateral Throughout] Blood Pressure 128/79 O2 Sat by Pulse 93 92 Oximetry O2 Sat by Pulse 93 Oximetry [ Assessment] 04/25/22 04/25/22 04/25/22 08:00 09:00 10:00 Temperature Pulse Rate 84 90 101 H Pulse Rate [ Anterior Bilateral Throughout] Pulse Rate [ From Monitor] Respiratory 14 14 19 Rate Respiratory Rate [Anterior Bilateral Throughout] Blood Pressure 123/77 117/71 127/72 O2 Sat by Pulse 92 97 85 Oximetry O2 Sat by Pulse Oximetry [ Assessment] 04/25/22 04/25/22 04/25/22 11:00 11:17 11:36 Temperature 99.5 F Pulse Rate 99 H 100 H 104 H Pulse Rate [ Anterior Bilateral Throughout] Pulse Rate [ From Monitor] Respiratory 15 Rate Respiratory Rate [Anterior Bilateral Throughout] Blood Pressure 108/63 108/63 O2 Sat by Pulse 93 94 Oximetry O2 Sat by Pulse Oximetry [ Assessment] 04/25/22 04/25/22 04/25/22 11:57 12:00 13:00 Temperature Pulse Rate 103 H 104 H 89 Pulse Rate [ Anterior Bilateral Throughout] Pulse Rate [ 92 H From Monitor] Respiratory 17 16 Rate Respiratory Rate [Anterior Bilateral Throughout] Blood Pressure 113/70 117/77 105/68 O2 Sat by Pulse 95 97 Oximetry O2 Sat by Pulse Oximetry [ Assessment] Constitutional: alert, appears uncomfortable, other (orally intubated in bed with mildly increased respiratory effort at rest) Eyes: non-icteric ENT: oropharynx moist, other (+ midline tracheostomy) Neck: supple, no lymphadenopathy, no JVD Effort: mildly labored Ascultation: Bilateral: diminished breath sounds (bases), rhonchi Percussion: Bilateral: not dull Cardiovascular: regular rate and rhythm, other (S1,S2) Gastrointestinal: normoactive bowel sounds, soft, non-tender, non-distended Integumentary: normal Extremities: no cyanosis, no edema, pink and warm, pulses normal Neurologic: pupils equal and round, other (functional quadriplegia) Psychiatric: anxious (affect), other CBC and BMP: 04/24/22 04:29 04/24/22 04:29 ABG, PT/INR, D-dimer: ABG ABG pH 7.457 pH Units (7.350-7.450) H 04/25/22 09:00 ABG pCO2 61.7 mm Hg 04/25/22 09:00 ABG pO2 66.7 mm Hg (80.0-90.0) L 04/25/22 09:00 ABG O2 Saturation 95.7 % (95.0-99.0) 04/25/22 09:00 PT/INR, D-dimer PT 13.6 Sec. (12.2-14.9) 04/13/22 04:30 INR 0.94 (0.87-1.13) 04/13/22 04:30 Abnormal lab findings: Abnormal Labs 04/02/22 04/02/22 04/02/22 19:39 19:39 19:39 WBC 14.3 H RBC Hgb Hct MCV 96 H Plt Count 104 L Lymph % (Auto) [place] % (Auto) Lymph # (Auto) [place] # (Auto) Seg Neutrophils % Seg Neuts % (Manual) 94.0 H Lymphocytes % (Manual) 1.0 L Seg Neutrophils # Seg Neutrophils # Man 13.4 H Lymphocytes # (Manual) 0.1 L PT 15.9 H INR 1.14 H ABG pH ABG pO2 ABG HCO3 ABG O2 Saturation ABG Base Excess ABG Hemoglobin Oxyhemoglobin Sodium 151 H Potassium Chloride Carbon Dioxide BUN Creatinine 0.5 L Glucose POC Glucose Calcium 8.2 L Phosphorus Magnesium 1.60 L Total Creatine Kinase CK-MB (CK-2) Rel Index Troponin T 0.048 H C-Reactive Protein Total Protein 4.6 L Albumin 2.7 L LDL Cholesterol Direct 27 L Urine WBC (Auto) 04/02/22 04/03/22 04/03/22 19:42 05:14 06:30 WBC RBC Hgb Hct MCV Plt Count Lymph % (Auto) [place] % (Auto) Lymph # (Auto) [place] # (Auto) Seg Neutrophils % Seg Neuts % (Manual) Lymphocytes % (Manual) Seg Neutrophils # Seg Neutrophils # Man Lymphocytes # (Manual) PT INR ABG pH 7.471 H 7.496 H ABG pO2 47.8 L 91.0 H ABG HCO3 30.6 H ABG O2 Saturation 94.4 L ABG Base Excess 6.2 H ABG Hemoglobin 11.0 L 12.8 L Oxyhemoglobin 93.1 L Sodium 149 H Potassium 3.4 L Chloride Carbon Dioxide BUN Creatinine 0.4 L Glucose POC Glucose Calcium Phosphorus Magnesium Total Creatine Kinase CK-MB (CK-2) Rel Index Troponin T C-Reactive Protein Total Protein Albumin LDL Cholesterol Direct Urine WBC (Auto) 04/04/22 04/04/22 04/04/22 04:18 04:18 05:50 WBC 11.8 H RBC Hgb Hct MCV Plt Count 132 L Lymph % (Auto) [place] % (Auto) Lymph # (Auto) [place] # (Auto) Seg Neutrophils % Seg Neuts % (Manual) Lymphocytes % (Manual) Seg Neutrophils # Seg Neutrophils # Man Lymphocytes # (Manual) PT INR ABG pH 7.517 H ABG pO2 115.5 H ABG HCO3 29.9 H ABG O2 Saturation ABG Base Excess 6.7 H ABG Hemoglobin 12.3 L Oxyhemoglobin Sodium Potassium 3.5 L Chloride Carbon Dioxide 31 H BUN Creatinine 0.3 L Glucose 153 H POC Glucose Calcium Phosphorus 1.40 L Magnesium 1.50 L Total Creatine Kinase CK-MB (CK-2) Rel Index Troponin T C-Reactive Protein 31.60 H Total Protein Albumin LDL Cholesterol Direct Urine WBC (Auto) 04/05/22 04/05/22 04/05/22 02:50 05:25 11:28 WBC RBC Hgb Hct MCV Plt Count Lymph % (Auto) [place] % (Auto) Lymph # (Auto) [place] # (Auto) Seg Neutrophils % Seg Neuts % (Manual) Lymphocytes % (Manual) Seg Neutrophils # Seg Neutrophils # Man Lymphocytes # (Manual) PT INR ABG pH 7.455 H ABG pO2 50.7 L ABG HCO3 30.5 H ABG O2 Saturation 89.4 L ABG Base Excess 5.9 H ABG Hemoglobin 11.8 L Oxyhemoglobin 88.2 L Sodium Potassium Chloride Carbon Dioxide 32 H BUN Creatinine 0.2 L Glucose 110 H POC Glucose 124 H Calcium 7.9 L Phosphorus Magnesium Total Creatine Kinase CK-MB (CK-2) Rel Index Troponin T C-Reactive Protein Total Protein Albumin LDL Cholesterol Direct Urine WBC (Auto) 04/05/22 04/05/22 04/06/22 17:45 Unknown 04:00 WBC RBC 3.55 L Hgb 11.1 L 11.5 L Hct 33.2 L 35.1 L MCV Plt Count 113 L 114 L Lymph % (Auto) [place] % (Auto) Lymph # (Auto) [place] # (Auto) Seg Neutrophils % Seg Neuts % (Manual) Lymphocytes % (Manual) Seg Neutrophils # Seg Neutrophils # Man Lymphocytes # (Manual) PT INR ABG pH ABG pO2 ABG HCO3 ABG O2 Saturation ABG Base Excess ABG Hemoglobin Oxyhemoglobin Sodium Potassium Chloride Carbon Dioxide BUN Creatinine Glucose POC Glucose Calcium Phosphorus Magnesium Total Creatine Kinase CK-MB (CK-2) Rel Index Troponin T C-Reactive Protein Total Protein Albumin LDL Cholesterol Direct Urine WBC (Auto) 8.0 H 04/06/22 04/06/22 04/07/22 04:00 08:30 00:04 WBC RBC Hgb Hct MCV Plt Count Lymph % (Auto) [place] % (Auto) Lymph # (Auto) [place] # (Auto) Seg Neutrophils % Seg Neuts % (Manual) Lymphocytes % (Manual) Seg Neutrophils # Seg Neutrophils # Man Lymphocytes # (Manual) PT INR ABG pH ABG pO2 60.8 L ABG HCO3 30.5 H ABG O2 Saturation 93.3 L ABG Base Excess 4.9 H ABG Hemoglobin 12.4 L Oxyhemoglobin 92.1 L Sodium Potassium 3.0 L Chloride Carbon Dioxide BUN Creatinine < 0.2 L Glucose 130 H POC Glucose 117 H Calcium 8.1 L Phosphorus Magnesium Total Creatine Kinase CK-MB (CK-2) Rel Index Troponin T C-Reactive Protein Total Protein Albumin LDL Cholesterol Direct Urine WBC (Auto) 04/07/22 04/07/22 04/07/22 03:51 03:51 03:51 WBC 14.6 H RBC 3.57 L Hgb 11.1 L Hct 33.2 L MCV Plt Count 118 L Lymph % (Auto) 4.3 L [place] % (Auto) 8.8 H Lymph # (Auto) 0.6 L [place] # (Auto) 1.3 H Seg Neutrophils % 86.6 H Seg Neuts % (Manual) Lymphocytes % (Manual) Seg Neutrophils # 12.7 H Seg Neutrophils # Man Lymphocytes # (Manual) PT 15.2 H INR ABG pH ABG pO2 ABG HCO3 ABG O2 Saturation ABG Base Excess ABG Hemoglobin Oxyhemoglobin Sodium 133 L Potassium Chloride 96.0 L Carbon Dioxide 31 H BUN Creatinine 0.2 L Glucose 130 H POC Glucose Calcium 8.0 L Phosphorus Magnesium Total Creatine Kinase CK-MB (CK-2) Rel Index Troponin T C-Reactive Protein Total Protein Albumin LDL Cholesterol Direct Urine WBC (Auto) 04/07/22 04/07/22 04/08/22 04:25 09:10 04:49 WBC 16.1 H RBC 3.54 L Hgb 10.9 L Hct 33.3 L MCV Plt Count Lymph % (Auto) [place] % (Auto) Lymph # (Auto) [place] # (Auto) Seg Neutrophils % Seg Neuts % (Manual) Lymphocytes % (Manual) Seg Neutrophils # Seg Neutrophils # Man Lymphocytes # (Manual) PT INR ABG pH ABG pO2 71.0 L 63.4 L ABG HCO3 31.5 H 40.0 H ABG O2 Saturation 94.9 L ABG Base Excess 5.9 H 13.6 H ABG Hemoglobin 11.3 L 9.0 L Oxyhemoglobin 93.6 L Sodium Potassium Chloride Carbon Dioxide BUN Creatinine Glucose POC Glucose Calcium Phosphorus Magnesium Total Creatine Kinase CK-MB (CK-2) Rel Index Troponin T C-Reactive Protein Total Protein Albumin LDL Cholesterol Direct Urine WBC (Auto) 04/08/22 04/08/22 04/08/22 04:49 09:53 10:25 WBC RBC Hgb Hct MCV Plt Count Lymph % (Auto) [place] % (Auto) Lymph # (Auto) [place] # (Auto) Seg Neutrophils % Seg Neuts % (Manual) Lymphocytes % (Manual) Seg Neutrophils # Seg Neutrophils # Man Lymphocytes # (Manual) PT INR ABG pH ABG pO2 ABG HCO3 34.7 H ABG O2 Saturation ABG Base Excess 7.9 H ABG Hemoglobin 11.0 L Oxyhemoglobin Sodium 136 L Potassium Chloride 97.7 L Carbon Dioxide 33 H BUN Creatinine 0.2 L Glucose 155 H POC Glucose Calcium Phosphorus Magnesium Total Creatine Kinase CK-MB (CK-2) Rel Index Troponin T 0.030 H C-Reactive Protein Total Protein Albumin LDL Cholesterol Direct Urine WBC (Auto) 04/08/22 04/08/22 04/08/22 11:19 17:47 18:06 WBC RBC Hgb Hct MCV Plt Count Lymph % (Auto) [place] % (Auto) Lymph # (Auto) [place] # (Auto) Seg Neutrophils % Seg Neuts % (Manual) Lymphocytes % (Manual) Seg Neutrophils # Seg Neutrophils # Man Lymphocytes # (Manual) PT INR ABG pH ABG pO2 ABG HCO3 ABG O2 Saturation ABG Base Excess ABG Hemoglobin Oxyhemoglobin Sodium Potassium Chloride Carbon Dioxide BUN Creatinine Glucose POC Glucose 121 H Calcium Phosphorus Magnesium Total Creatine Kinase 31 L 46 L CK-MB (CK-2) Rel Index 6.4 H 5.6 H Troponin T 0.030 H 0.031 H C-Reactive Protein Total Protein Albumin LDL Cholesterol Direct Urine WBC (Auto) 04/09/22 04/09/22 04/09/22 04:35 04:35 11:24 WBC 11.5 H RBC 3.16 L Hgb 9.9 L Hct 29.4 L MCV Plt Count 131 L Lymph % (Auto) [place] % (Auto) Lymph # (Auto) [place] # (Auto) Seg Neutrophils % Seg Neuts % (Manual) Lymphocytes % (Manual) Seg Neutrophils # Seg Neutrophils # Man Lymphocytes # (Manual) PT INR ABG pH ABG pO2 ABG HCO3 ABG O2 Saturation ABG Base Excess ABG Hemoglobin Oxyhemoglobin Sodium Potassium Chloride 97.1 L Carbon Dioxide 35 H BUN Creatinine < 0.2 L Glucose 145 H POC Glucose 147 H Calcium Phosphorus Magnesium Total Creatine Kinase CK-MB (CK-2) Rel Index Troponin T C-Reactive Protein Total Protein Albumin LDL Cholesterol Direct Urine WBC (Auto) 04/09/22 04/09/22 04/09/22 13:00 17:32 23:48 WBC RBC Hgb Hct MCV Plt Count Lymph % (Auto) [place] % (Auto) Lymph # (Auto) [place] # (Auto) Seg Neutrophils % Seg Neuts % (Manual) Lymphocytes % (Manual) Seg Neutrophils # Seg Neutrophils # Man Lymphocytes # (Manual) PT INR ABG pH ABG pO2 66.6 L ABG HCO3 38.2 H ABG O2 Saturation 94.4 L ABG Base Excess 10.7 H ABG Hemoglobin 10.7 L Oxyhemoglobin 92.8 L Sodium Potassium Chloride Carbon Dioxide BUN Creatinine Glucose POC Glucose 143 H 114 H Calcium Phosphorus Magnesium Total Creatine Kinase CK-MB (CK-2) Rel Index Troponin T C-Reactive Protein Total Protein Albumin LDL Cholesterol Direct Urine WBC (Auto) 04/10/22 04/10/22 04/10/22 04:48 04:48 05:34 WBC RBC 2.91 L Hgb 9.1 L Hct 27.7 L MCV 95 H Plt Count Lymph % (Auto) [place] % (Auto) Lymph # (Auto) [place] # (Auto) Seg Neutrophils % Seg Neuts % (Manual) Lymphocytes % (Manual) Seg Neutrophils # Seg Neutrophils # Man Lymphocytes # (Manual) PT INR ABG pH ABG pO2 ABG HCO3 ABG O2 Saturation ABG Base Excess ABG Hemoglobin Oxyhemoglobin Sodium Potassium Chloride 95.7 L Carbon Dioxide 38 H BUN Creatinine < 0.2 L Glucose 118 H POC Glucose 127 H Calcium Phosphorus Magnesium Total Creatine Kinase CK-MB (CK-2) Rel Index Troponin T C-Reactive Protein Total Protein Albumin LDL Cholesterol Direct Urine WBC (Auto) 04/10/22 04/11/22 04/11/22 23:10 04:15 04:15 WBC 17.2 H RBC 2.98 L Hgb 9.2 L Hct 27.9 L MCV Plt Count Lymph % (Auto) [place] % (Auto) Lymph # (Auto) [place] # (Auto) Seg Neutrophils % Seg Neuts % (Manual) Lymphocytes % (Manual) Seg Neutrophils # Seg Neutrophils # Man Lymphocytes # (Manual) PT INR ABG pH ABG pO2 ABG HCO3 ABG O2 Saturation ABG Base Excess ABG Hemoglobin Oxyhemoglobin Sodium Potassium Chloride 96.1 L Carbon Dioxide 35 H BUN Creatinine < 0.2 L Glucose 138 H POC Glucose 106 H Calcium 8.3 L Phosphorus Magnesium Total Creatine Kinase CK-MB (CK-2) Rel Index Troponin T C-Reactive Protein Total Protein Albumin LDL Cholesterol Direct Urine WBC (Auto) 04/11/22 04/11/22 04/11/22 05:31 13:18 16:20 WBC RBC Hgb Hct MCV Plt Count Lymph % (Auto) [place] % (Auto) Lymph # (Auto) [place] # (Auto) Seg Neutrophils % Seg Neuts % (Manual) Lymphocytes % (Manual) Seg Neutrophils # Seg Neutrophils # Man Lymphocytes # (Manual) PT INR ABG pH ABG pO2 57.8 L ABG HCO3 40.5 H ABG O2 Saturation 90.6 L ABG Base Excess 12.6 H ABG Hemoglobin 10.5 L Oxyhemoglobin 89.0 L Sodium Potassium Chloride Carbon Dioxide BUN Creatinine Glucose POC Glucose 129 H 132 H Calcium Phosphorus Magnesium Total Creatine Kinase CK-MB (CK-2) Rel Index Troponin T C-Reactive Protein Total Protein Albumin LDL Cholesterol Direct Urine WBC (Auto) 04/11/22 04/11/22 04/12/22 17:29 23:17 04:00 WBC 17.4 H RBC 2.96 L Hgb 9.0 L Hct 28.0 L MCV 95 H Plt Count Lymph % (Auto) [place] % (Auto) Lymph # (Auto) [place] # (Auto) Seg Neutrophils % Seg Neuts % (Manual) Lymphocytes % (Manual) Seg Neutrophils # Seg Neutrophils # Man Lymphocytes # (Manual) PT INR ABG pH ABG pO2 ABG HCO3 ABG O2 Saturation ABG Base Excess ABG Hemoglobin Oxyhemoglobin Sodium Potassium Chloride Carbon Dioxide BUN Creatinine Glucose POC Glucose 125 H 151 H Calcium Phosphorus Magnesium Total Creatine Kinase CK-MB (CK-2) Rel Index Troponin T C-Reactive Protein Total Protein Albumin LDL Cholesterol Direct Urine WBC (Auto) 04/12/22 04/12/22 04/12/22 04:00 17:03 23:39 WBC RBC Hgb Hct MCV Plt Count Lymph % (Auto) [place] % (Auto) Lymph # (Auto) [place] # (Auto) Seg Neutrophils % Seg Neuts % (Manual) Lymphocytes % (Manual) Seg Neutrophils # Seg Neutrophils # Man Lymphocytes # (Manual) PT INR ABG pH ABG pO2 ABG HCO3 ABG O2 Saturation ABG Base Excess ABG Hemoglobin Oxyhemoglobin Sodium Potassium Chloride 97.4 L Carbon Dioxide 37 H BUN Creatinine < 0.2 L Glucose 127 H POC Glucose 106 H 107 H Calcium Phosphorus Magnesium Total Creatine Kinase CK-MB (CK-2) Rel Index Troponin T C-Reactive Protein Total Protein Albumin LDL Cholesterol Direct Urine WBC (Auto) 04/13/22 04/13/22 04/13/22 04:30 04:30 17:39 WBC 14.1 H RBC 2.66 L Hgb 8.4 L Hct 25.5 L MCV 96 H Plt Count Lymph % (Auto) [place] % (Auto) Lymph # (Auto) [place] # (Auto) Seg Neutrophils % Seg Neuts % (Manual) Lymphocytes % (Manual) Seg Neutrophils # Seg Neutrophils # Man Lymphocytes # (Manual) PT INR ABG pH ABG pO2 ABG HCO3 ABG O2 Saturation ABG Base Excess ABG Hemoglobin Oxyhemoglobin Sodium Potassium Chloride 93.9 L Carbon Dioxide 39 H BUN Creatinine < 0.2 L Glucose POC Glucose 134 H Calcium Phosphorus 1.90 L Magnesium Total Creatine Kinase CK-MB (CK-2) Rel Index Troponin T C-Reactive Protein Total Protein Albumin LDL Cholesterol Direct Urine WBC (Auto) 04/14/22 04/14/22 04/14/22 05:03 05:03 09:10 WBC 15.6 H RBC 3.02 L Hgb 9.3 L Hct 28.8 L MCV 95 H Plt Count Lymph % (Auto) [place] % (Auto) Lymph # (Auto) [place] # (Auto) Seg Neutrophils % Seg Neuts % (Manual) Lymphocytes % (Manual) Seg Neutrophils # Seg Neutrophils # Man Lymphocytes # (Manual) PT INR ABG pH ABG pO2 66.9 L ABG HCO3 44.5 H ABG O2 Saturation ABG Base Excess 17.2 H ABG Hemoglobin 8.1 L Oxyhemoglobin 94.8 L Sodium Potassium Chloride 93.8 L Carbon Dioxide 42 H* BUN Creatinine < 0.2 L Glucose 117 H POC Glucose Calcium Phosphorus Magnesium Total Creatine Kinase CK-MB (CK-2) Rel Index Troponin T C-Reactive Protein Total Protein Albumin LDL Cholesterol Direct Urine WBC (Auto) 04/15/22 04/15/22 04/16/22 04:44 04:44 04:16 WBC 13.0 H 12.6 H RBC 3.19 L 3.09 L Hgb 9.6 L 9.5 L Hct 30.2 L 29.1 L MCV 95 H Plt Count 456 H Lymph % (Auto) [place] % (Auto) Lymph # (Auto) [place] # (Auto) Seg Neutrophils % Seg Neuts % (Manual) Lymphocytes % (Manual) Seg Neutrophils # Seg Neutrophils # Man Lymphocytes # (Manual) PT INR ABG pH ABG pO2 ABG HCO3 ABG O2 Saturation ABG Base Excess ABG Hemoglobin Oxyhemoglobin Sodium Potassium Chloride 95.5 L Carbon Dioxide 37 H BUN Creatinine < 0.2 L Glucose POC Glucose Calcium Phosphorus Magnesium Total Creatine Kinase CK-MB (CK-2) Rel Index Troponin T C-Reactive Protein Total Protein Albumin LDL Cholesterol Direct Urine WBC (Auto) 04/16/22 04/16/22 04/16/22 04:16 05:00 14:00 WBC RBC Hgb Hct MCV Plt Count Lymph % (Auto) [place] % (Auto) Lymph # (Auto) [place] # (Auto) Seg Neutrophils % Seg Neuts % (Manual) Lymphocytes % (Manual) Seg Neutrophils # Seg Neutrophils # Man Lymphocytes # (Manual) PT INR ABG pH 7.324 L ABG pO2 55.6 L ABG HCO3 45.3 H ABG O2 Saturation 87.1 L ABG Base Excess 16.6 H ABG Hemoglobin 8.6 L Oxyhemoglobin 85.7 L Sodium Potassium Chloride 97.6 L Carbon Dioxide 36 H BUN Creatinine < 0.2 L Glucose 109 H POC Glucose 120 H Calcium Phosphorus Magnesium Total Creatine Kinase CK-MB (CK-2) Rel Index Troponin T C-Reactive Protein Total Protein Albumin LDL Cholesterol Direct Urine WBC (Auto) 04/17/22 04/17/22 04/17/22 04:36 04:36 04:57 WBC 14.4 H RBC 3.08 L Hgb 9.4 L Hct 29.0 L MCV Plt Count Lymph % (Auto) [place] % (Auto) Lymph # (Auto) [place] # (Auto) Seg Neutrophils % Seg Neuts % (Manual) Lymphocytes % (Manual) Seg Neutrophils # Seg Neutrophils # Man Lymphocytes # (Manual) PT INR ABG pH ABG pO2 ABG HCO3 ABG O2 Saturation ABG Base Excess ABG Hemoglobin Oxyhemoglobin Sodium Potassium Chloride 95.9 L Carbon Dioxide 39 H BUN Creatinine < 0.2 L Glucose 140 H POC Glucose 137 H Calcium 8.3 L Phosphorus Magnesium Total Creatine Kinase CK-MB (CK-2) Rel Index Troponin T C-Reactive Protein Total Protein Albumin LDL Cholesterol Direct Urine WBC (Auto) 04/17/22 04/17/22 04/18/22 09:15 18:01 04:20 WBC 11.2 H RBC 3.00 L Hgb 9.3 L Hct 28.6 L MCV 95 H Plt Count Lymph % (Auto) [place] % (Auto) Lymph # (Auto) [place] # (Auto) Seg Neutrophils % Seg Neuts % (Manual) Lymphocytes % (Manual) Seg Neutrophils # Seg Neutrophils # Man Lymphocytes # (Manual) PT INR ABG pH 7.345 L ABG pO2 ABG HCO3 48.2 H ABG O2 Saturation ABG Base Excess 19.2 H ABG Hemoglobin 9.7 L Oxyhemoglobin Sodium Potassium Chloride Carbon Dioxide BUN Creatinine Glucose POC Glucose 129 H Calcium Phosphorus Magnesium Total Creatine Kinase CK-MB (CK-2) Rel Index Troponin T C-Reactive Protein Total Protein Albumin LDL Cholesterol Direct Urine WBC (Auto) 04/18/22 04/18/22 04/18/22 04:20 17:35 23:50 WBC RBC Hgb Hct MCV Plt Count Lymph % (Auto) [place] % (Auto) Lymph # (Auto) [place] # (Auto) Seg Neutrophils % Seg Neuts % (Manual) Lymphocytes % (Manual) Seg Neutrophils # Seg Neutrophils # Man Lymphocytes # (Manual) PT INR ABG pH ABG pO2 ABG HCO3 ABG O2 Saturation ABG Base Excess ABG Hemoglobin Oxyhemoglobin Sodium Potassium Chloride 96.8 L Carbon Dioxide 43 H* BUN 22 H Creatinine < 0.2 L Glucose 137 H POC Glucose 128 H 123 H Calcium 8.2 L Phosphorus Magnesium Total Creatine Kinase CK-MB (CK-2) Rel Index Troponin T C-Reactive Protein Total Protein Albumin LDL Cholesterol Direct Urine WBC (Auto) 04/19/22 04/19/22 04/19/22 04:08 04:08 08:50 WBC 16.8 H RBC 3.18 L Hgb 9.8 L Hct 30.1 L MCV 95 H Plt Count Lymph % (Auto) [place] % (Auto) Lymph # (Auto) [place] # (Auto) Seg Neutrophils % Seg Neuts % (Manual) Lymphocytes % (Manual) Seg Neutrophils # Seg Neutrophils # Man Lymphocytes # (Manual) PT INR ABG pH ABG pO2 56.0 L ABG HCO3 47.1 H ABG O2 Saturation 93.3 L ABG Base Excess 20.1 H ABG Hemoglobin 8.0 L Oxyhemoglobin 91.8 L Sodium Potassium Chloride 96.2 L Carbon Dioxide 40 H BUN 24 H Creatinine < 0.2 L Glucose 125 H POC Glucose Calcium 8.3 L Phosphorus Magnesium Total Creatine Kinase CK-MB (CK-2) Rel Index Troponin T C-Reactive Protein Total Protein Albumin LDL Cholesterol Direct Urine WBC (Auto) 04/19/22 04/20/22 04/20/22 12:02 00:40 04:49 WBC 14.7 H RBC 3.36 L Hgb 10.3 L Hct 32.0 L MCV 95 H Plt Count Lymph % (Auto) [place] % (Auto) Lymph # (Auto) [place] # (Auto) Seg Neutrophils % Seg Neuts % (Manual) Lymphocytes % (Manual) Seg Neutrophils # Seg Neutrophils # Man Lymphocytes # (Manual) PT INR ABG pH ABG pO2 ABG HCO3 ABG O2 Saturation ABG Base Excess ABG Hemoglobin Oxyhemoglobin Sodium Potassium Chloride Carbon Dioxide BUN Creatinine Glucose POC Glucose 124 H 140 H Calcium Phosphorus Magnesium Total Creatine Kinase CK-MB (CK-2) Rel Index Troponin T C-Reactive Protein Total Protein Albumin LDL Cholesterol Direct Urine WBC (Auto) 04/20/22 04/20/22 04/21/22 05:36 11:40 04:05 WBC RBC Hgb Hct MCV Plt Count Lymph % (Auto) [place] % (Auto) Lymph # (Auto) [place] # (Auto) Seg Neutrophils % Seg Neuts % (Manual) Lymphocytes % (Manual) Seg Neutrophils # Seg Neutrophils # Man Lymphocytes # (Manual) PT INR ABG pH ABG pO2 ABG HCO3 ABG O2 Saturation ABG Base Excess ABG Hemoglobin Oxyhemoglobin Sodium Potassium Chloride 93.4 L Carbon Dioxide 40 H BUN 25 H Creatinine < 0.2 L Glucose 122 H POC Glucose 125 H 128 H Calcium Phosphorus Magnesium Total Creatine Kinase CK-MB (CK-2) Rel Index Troponin T C-Reactive Protein Total Protein Albumin LDL Cholesterol Direct Urine WBC (Auto) 04/21/22 04/22/22 04/22/22 10:31 05:03 05:03 WBC 12.6 H 12.7 H RBC 2.83 L 2.96 L Hgb 8.6 L 9.0 L Hct 26.9 L 28.0 L MCV 95 H 95 H Plt Count Lymph % (Auto) [place] % (Auto) Lymph # (Auto) [place] # (Auto) Seg Neutrophils % Seg Neuts % (Manual) Lymphocytes % (Manual) Seg Neutrophils # Seg Neutrophils # Man Lymphocytes # (Manual) PT INR ABG pH ABG pO2 ABG HCO3 ABG O2 Saturation ABG Base Excess ABG Hemoglobin Oxyhemoglobin Sodium Potassium Chloride 93.9 L Carbon Dioxide 43 H* BUN 23 H Creatinine < 0.2 L Glucose 137 H POC Glucose Calcium Phosphorus Magnesium Total Creatine Kinase CK-MB (CK-2) Rel Index Troponin T C-Reactive Protein Total Protein Albumin LDL Cholesterol Direct Urine WBC (Auto) 04/22/22 04/23/22 04/24/22 08:34 09:40 04:29 WBC 14.4 H RBC 2.74 L Hgb 8.4 L Hct 25.7 L MCV Plt Count Lymph % (Auto) [place] % (Auto) Lymph # (Auto) [place] # (Auto) Seg Neutrophils % Seg Neuts % (Manual) Lymphocytes % (Manual) Seg Neutrophils # Seg Neutrophils # Man Lymphocytes # (Manual) PT INR ABG pH ABG pO2 54.1 L 56.8 L ABG HCO3 48.5 H 49.0 H ABG O2 Saturation 92.1 L 90.9 L ABG Base Excess 20.9 H 20.8 H ABG Hemoglobin 9.0 L 8.4 L Oxyhemoglobin 90.6 L 89.5 L Sodium Potassium Chloride Carbon Dioxide BUN Creatinine Glucose POC Glucose Calcium Phosphorus Magnesium Total Creatine Kinase CK-MB (CK-2) Rel Index Troponin T C-Reactive Protein Total Protein Albumin LDL Cholesterol Direct Urine WBC (Auto) 04/24/22 04/25/22 04:29 09:00 WBC RBC Hgb Hct MCV Plt Count Lymph % (Auto) [place] % (Auto) Lymph # (Auto) [place] # (Auto) Seg Neutrophils % Seg Neuts % (Manual) Lymphocytes % (Manual) Seg Neutrophils # Seg Neutrophils # Man Lymphocytes # (Manual) PT INR ABG pH 7.457 H ABG pO2 66.7 L ABG HCO3 42.6 H ABG O2 Saturation ABG Base Excess 15.3 H ABG Hemoglobin 8.8 L Oxyhemoglobin 94.1 L Sodium Potassium Chloride 90.7 L Carbon Dioxide 40 H BUN Creatinine < 0.2 L Glucose 133 H POC Glucose Calcium Phosphorus Magnesium Total Creatine Kinase CK-MB (CK-2) Rel Index Troponin T C-Reactive Protein Total Protein Albumin LDL Cholesterol Direct Urine WBC (Auto) Allied health notes reviewed: nursing
[2022-04-26] MEDS: METOPROLOL TARTRATE 25 MG TAB FEEDTUBE SCH ×5 (00:11→23:13)
[2022-04-26] MEDS: INSULIN REGULAR, HUMAN 100 UNITS/1 ML SUB-Q SCH ×5 (00:13→23:13)
[2022-04-26] MEDS: ACETYLCYSTEINE 20% 200 MG/1 ML *FOR INHALATION USE INHALATION SCH ×4 (00:16→23:18)
[2022-04-26] MEDS: ALBUTEROL 2.5 MG/3 ML NEBU IH SCH ×4 (00:16→23:18)
[2022-04-26] MEDS: HEPARIN 5,000 UNIT/1 ML VIAL SUB-Q SCH ×3 (05:05→21:38)
[2022-04-26 05:07] LABS: Hematocrit 26.8 % (35.5-45.6); Hemoglobin 8.9 gm/dl (11.8-15.2); Mean Corpuscular HGB Conc 33 % (32-34); Mean Corpuscular Volume 93 fl (84-94); Platelet Count 376 K/mm3 (140-440); Red Blood Count 2.88 M/mm3 (3.65-5.03); Red Cell Distribution Width 13.8 % (13.2-15.2)
[2022-04-26 05:21] LABS: Blood Urea Nitrogen 16 mg/dL (9-20); Calcium 8.5 mg/dL (8.4-10.2); Hemolysis Index 8
[2022-04-26 05:24] LABS: BUN/Creatinine Ratio 80
[2022-04-26] MEDS: FAMOTIDINE 20 MG TAB FEEDTUBE SCH ×2 (09:15→21:38)
[2022-04-26] MEDS: QUEtiapine 25 MG TAB PO SCH ×2 (09:15→21:38)
[2022-04-26] MEDS: SENNOSIDES ORAL LIQD 8.8 MG/5 ML ORAL LIQD PO SCH ×2 (09:15→22:19)
[2022-04-26] MEDS: POLYETHYLENE GLYCOL 3350 17 GM POWDER PO SCH (09:16)
[2022-04-26] MEDS: DOCUSATE SODIUM 100 MG/10 ML ORAL LIQD PO SCH ×2 (09:16→22:19)
--- NOTE | 2022-04-26 11:06 | Progress Note ---
<ALEK SMITH - Last Filed: 04/26/22 16:40> Assessment and Plan Assessment and plan: This is a 57-year-old male with known history of ALS, recently hospitalized at [facility] admitted for acute hypoxemic respiratory failure 2/2 pneumonia Hospital Course to Date: 04/03: Intubated and Sedated on versed gtt, RASS-5. CT head/brain noted with no acute intracranial abnormality. Plan to initiated precededx gtt and wean off versed for a RASS goal of 0 to -2. CT chect also reviewed, findings are most consistent with acute bronchopneumonia. Continue empiric IV Abx, vent adjustment per CCM. ID consulted. Continue to F/U on cultures. Titrate pressor for MAP above 65. Medical records requested from [facility]. 04/04: Remains stable on the vent, easily arousable on precedex gtt, not following commands. Plan for SAT/SBT today. PRN analgesia for CPOT greater than 3. Fevers improved, cultures and procal pending. Continue current IV abx, ID also consulted. Remains on low dose pressors, titrate pressors for a MAP above 65. 04/05: Long discussion with family with use of translation phone with CCM regarding goals of care. Family to have meeting amongst themselves and informed care team of decisions. Fentanyl drip added for respiratory distress. Remains on Precedex drip. Antibiotics per ID. Given 2L NS bolus with levophed gtt 04/06: Family discussion with Dr. Grayson for goals of care. CXR shows possible mucus plug, continue CPT as FiO2 is being able to be weaned. Potassium repleted. Weaning fentnyl gtt. 04/07: Ultrasound guided thoracentesis today scheduled, inadequate amount of pleural effusion on so not completed. Patient was started on Levophed overnight which was weaned off this morning however had to be started twice a day. Remains on fentanyl and Precedex. Cardiology discontinued BB and ACEi in setting of hypotension. 04/08: COVID-19 PCR negative. Routine EEG ordered by cardiology which showed ST changes, cardiology aware. They will continue conservative treatment. Repeat troponins 0.030 which are less than admit of 0.048. Dr. Grayson had a long discu ssion with with the use of hot metal car operator today at bedside and has not made a decision regarding goals of care. Possible consult to surgery for trach/PEG early next week. Continues to require Precedex and fentanyl drip for sedation. Carvedilol/lisinopril discontinued as patient is continuously on Levophed. 04/09: No acute events reported overnight, remains on fentanyl, Precedex and Levophed drips. Dr. Grayson and Dr. Pineda updated family at bedside extensively today. Consulted surgery for trach/PEG. COVID-19 PCR negative. 04/10: Patient noted to have desaturation episodes, FiO2 increased slightly to 35%. Will add Mucomyst. Remains on fentanyl and Precedex. Off of Levophed. Surgery consulted for trach/PEG. 04/11: FiO2 increased over night likely related to hypoxia, continues on fent gtt, weaning precedex gtt as he is also on Seroquel. Will d/w CCM re scheduled or prn oxycodone 04/12: Periods of hypoxia and tachycardia this am. Symptoms improved post deep suction and tracheal lavage, Repeat CXR noted with no significant change. Continue CPT and mucomyst. Plan for possible trach/PEG tomorrow by general surgery. 04/13: Remains stable on the vent. Patient is wake and tracking but does not follow simple commands. No report of hypoxia from overnight, continue CPT and mucomyst. Plan for track and PEG today by General Surgery. Plan for LTAC placement post procedure, case management to arrange. 04/14: VIRGILIO overnight, Trach and PEG postponed for today by general surgery. Plan for LTAC placement post procedure, case management to arrange. 04/15: S/p Trach and PEG. Up to 80% FiO2 this am, this am CXR noted suggesting possible mucus plug. D/W [facility] plan for bronch today. Continue CPT and mucomyst. Plan of care thoroughly discussed with patient's and son (who translated for ) at the bedside. Per , carbon paper coating supervisor had already discussed the risks and benefits of the procedure yesterday. She verbalized understanding and agreed with procedure and current care plan, consent signed. Okay to use PEG-tube for meds this am, resume TF once okay by general Surgery. Case management to arrange LTAC placement. 04/16: s/p Bronchocopy by [facility]. FiO2 down to 60%, angela 10 this am. This am CXR with moderate improvement. Continue CPT and mucomyst, wean Fio2 as tolerated for SPO2 above 92%. Patient is tolerating TF, advance to goal as ordered. Possible LTAC placement, case management to arrange. 04/17: VIRGILIO overnight. remains stable on the vent, recent CXR and this am ABG n oted. Continue CPT and mucomyst, wean Fio2 as tolerated. 04/18: Remains stable on the vent, Fio2 down to 55% and peep of 8 this am. Continue to wean as tolerated, CPT, and mucomyst. Dsiposition- LTAC placement, case management to arrange. 04/19: No acute events overnight. Continue current management. 04/20: No acute events overnight, continue current management 04/21: Patient had chest ultrasound which showed trace pleural effusions, chest x-ray improved after the addition of Mucomyst yesterday. FiO2 55-65%. No acute events overnight. more interactive today. 04/22: Seroquel changed to BID, FiO2 was increased to 60%. RT increased FIO2 to 100 d/t desaturation into the 80s but was able to wean down. CCM increased PEEP and decreased FiO2. 04/23: CCM increase PEEP, no acute events reported overnight. 04/24: Spoke to RT about decreasing FiO2 as tolerated. No acute events reported overnight. Continue supportive management. 04/25: Weaning as tolerated. no acute events overnight. RT to attempt CPAP again today 04/26: VIRGILIO overnight. Patient failed PSV trial again this morning. Continue s upportive management and daily PST trial. Assessment and Plan #Acute Hypoxemic Respiratory Failure 2/ #Acute Bronchopneumonia - Intubated in the ED on 04/02 for hypoxemia and airway protection - 04/14 s/p Trach and PEG - 04/15 CXR reviewed complete opacity of the righ side suggesting possible mucus plug. See report for detail - 04/15 s/p Bronchoscopy by [facility] - Vent setting: PRVC-35%,12,14,400 - Recent ABG noted - CCM consulted, appreciate recommendations - Patient failed PST trial today - Continue daily PSVT as tolerated - Continue CPT and mucomyst per [facility] - VAP bundle addressed - Aspiration precaution HOB above 30 - PRN ABG and CXR per [facility] - Continue SPO2 monitoring for SPO2 goal above 92% #Sepsis #Acute Bronchopneumonia #HCAP #Leukocytosis - CXR shows moderate to large layering effusion on the right, see report for full detail - CT chest also reviewed, findings are most consistent with acute bronchopneumonia. See report for full detail - Patient was recent hospitalized for pneumonia - Patient remains afebrile - Tracheal aspirate with Pseudomonas aeruginosa, Enterobacter aerogenes - 04/02 blood culture with bacillus species, 04/05 blood culture NGTD - Patient completed O91qncl of Cefepine - CRP 31.6, procalcitonin 0.08 - MRSA negative - Daily CBC monitor - ID signed off #Suspect ischemic coronary artery disease #h/o cardiomyopathy - Low BP probably due to hypovolemia vs sedation vs infectious process - s/p Levophed gtt - Elevated troponin possibly a type II troponin leak - Cardiology consulted, appreciated recommendations - Echocardiogram shows ejection fraction of 40 to 45%, mild global hypokinesis of left ventricle - Continue BB - Continue blood pressure monitor per protocol - Maintain MAP above 65 - On heparin SubQ #H/o Amyotrophic Lateral Sclerosis #Acute Metabolic Encephalopathy-resolved #Nonverbal at Baseline - Presented with AMS, per family patient is nonverbal at baseline but responsive - CT head/Brain with no acute intracranial process - Off sedation. Awake and calm - Hold sedation for now - Continue Seroquel per CCM - Avoid benzodiazepine to reduce the possibility of delirium - PRN analgesia for CPOT greater than 3 - Maintenance of sleep-wake cycle #Thrombocytopenia-resolved - Continue to trend plt - On heparin subQ - Monitor for s/s of any active bleeding #Hypernatremia-resolved - Monitor and replace electrolytes as needed - Continue to trend BMP #Protein Caloric Malnutrition - Albumin 2.7, Total protein 4.6 - 04/15 s/p EPG-Tube placement - Continue enteral nutrition - Nutrition consulted #Constipation - Noted on CXR and KUB - last BM 04/26 - Continue BR #GI/DVT Prophylaxis - PPI- Pepcid - Heparin SubQ - SCDs to bilateral lower extremities while in bed #Advance Care Planning - Disease education data, care plan, diagnoses, and prognosis were discussed patient's , Carly Lopez, and patient daughter, Kaylee Warren, who translated for #[phone]. They reported that patient was following at [facility] for his ALS and during recent hospitalization at [facility] they were told nothing else can be offered to patient at this time and patient was discharge home with home hospice and PO morphine. First hospice visit was on , however, patient became unresponsive yesterday and they brought in to the hospital. - Goal of care and code status were also addressed at that time. Family wants to wait for a couple days to see how patient respond to current treatment before making a decision. All questions and concerns were addressed at this time. Patient family acknowledged understanding and agreement with care plan. - Patient remains a FULL CODE status -04/05: Discussion at bedside with interpreting service with Dr. Valdivia and family state they would discuss next steps amongst themselves and let healthcare team know of decisions -04/06: extensive discussion with family ( and son) with Dr. Grayson regarding goals of care -04/08: Extensive discussion with with the use of hot metal car operator line regarding goals of care; no decision made. Possible consult to surgery for trach/PEG early next week. -04/09: Discussion with and her sister with Dr. Grayson and then with Dr. Pineda-> Consulted surgery for trach/peg -Plan LTAC placement, case management to arrange. -will need to stay 21 days and have 3 failed PSV trials. The high probability of a clinically significant, sudden or life threatening deterioration of the [multiple] system(s) required my full and direct attention, intervention and personal management. The aggregate critical care time was [60] minutes. This time is in addition to time spent performing reported procedures but includes the following: [x] Data Review and interpretation [x] Patient assessment and monitoring of vital signs [x] Documentation [x] Medication orders and management Disposition Plan: ICU Total Time Spent with Patient (Minutes): 60 History Interval history: Patient seen and examined at the bedside. Stable on the vent, awake and tracking, dollowing simple commands, VSS. Patient failed PSV trial this am. VIRGILIO overnight Hospitalist Physical - Physical exam Narrative exam: General appearance: Present: no acute distress, cachectic, other (Trach and on the vent.Awake and tracking, following simple commands) - EENT Eyes: Present: PERRL - Neck Neck: Present: normal ROM - Respiratory Respiratory effort: normal Respiratory: bilateral: rhonchi - Cardiovascular Rhythm: regular Heart Sounds: Present: S1 & S2 - Extremities Extremities: no ischemia, pulses intact, pulses symmetrical Peripheral Pulses: within normal limits - Abdominal General gastrointestinal: soft, non-distended, normal bowel sounds - Integumentary Integumentary: Present: warm, dry - Psychiatric Psychiatric: other (Trach and on the vent. Awake and tracking, following simple commands) - Neurologic Neurologic: other (Trach and on the vent. Awake and tracking, following simple commands) - Allied Health Allied health notes reviewed: nursing, case management - Constitutional Vitals: Temp Pulse Resp BP Pulse Ox 97.8 F 90 8 L 119/75 97 04/26/22 04:00 04/26/22 08:35 04/26/22 08:35 04/26/22 08:35 04/26/22 08:35 HEART Score - HEART Score Troponin: Troponin T 0.031 ng/mL (0.00-0.029) H 04/08/22 17:47 Results - Labs CBC & Chem 7: 04/26/22 04:22 04/26/22 04:22 Labs: Laboratory Last Values WBC 10.0 K/mm3 (4.5-11.0) 04/26/22 04:22 RBC 2.88 M/mm3 (3.65-5.03) L 04/26/22 04:22 Hgb 8.9 gm/dl (11.8-15.2) L 04/26/22 04:22 Hct 26.8 % (35.5-45.6) L 04/26/22 04:22 MCV 93 fl (84-94) 04/26/22 04:22 MCH 31 pg (28-32) 04/26/22 04:22 MCHC 33 % (32-34) 04/26/22 04:22 RDW 13.8 % (13.2-15.2) 04/26/22 04:22 Plt Count 376 K/mm3 (140-440) 04/26/22 04:22 Lymph % (Auto) 4.3 % (13.4-35.0) L 04/07/22 03:51 [place] % (Auto) 8.8 % (0.0-7.3) H 04/07/22 03:51 Eos % (Auto) 0.1 % (0.0-4.3) 04/07/22 03:51 Baso % (Auto) 0.2 % (0.0-1.8) 04/07/22 03:51 Lymph # (Auto) 0.6 K/mm3 (1.2-5.4) L 04/07/22 03:51 [place] # (Auto) 1.3 K/mm3 (0.0-0.8) H 04/07/22 03:51 Eos # (Auto) 0.0 K/mm3 (0.0-0.4) 04/07/22 03:51 Baso # (Auto) 0.0 K/mm3 (0.0-0.1) 04/07/22 03:51 Add Manual Diff Complete 04/02/22 19:39 Total Counted 100 04/02/22 19:39 Seg Neutrophils % 86.6 % (40.0-70.0) H 04/07/22 03:51 Seg Neuts % (Manual) 94.0 % (40.0-70.0) H 04/02/22 19:39 Band Neutrophils % 0 % 04/02/22 19:39 Lymphocytes % (Manual) 1.0 % (13.4-35.0) L 04/02/22 19:39 Reactive Lymphs % (Man) 0 % 04/02/22 19:39 Monocytes % (Manual) 5.0 % (0.0-7.3) 04/02/22 19:39 Eosinophils % (Manual) 0 % (0.0-4.3) 04/02/22 19:39 Basophils % (Manual) 0 % (0.0-1.8) 04/02/22 19:39 Metamyelocytes % 0 % 04/02/22 19:39 Myelocytes % 0 % 04/02/22 19:39 Promyelocytes % 0 % 04/02/22 19:39 Blast Cells % 0 % 04/02/22 19:39 Nucleated RBC % Not Reportable 04/02/22 19:39 Seg Neutrophils # 12.7 K/mm3 (1.8-7.7) H 04/07/22 03:51 Seg Neutrophils # Man 13.4 K/mm3 (1.8-7.7) H 04/02/22 19:39 Band Neutrophils # 0.0 K/mm3 04/02/22 19:39 Lymphocytes # (Manual) 0.1 K/mm3 (1.2-5.4) L 04/02/22 19:39 Abs React Lymphs (Man) 0.0 K/mm3 04/02/22 19:39 Monocytes # (Manual) 0.7 K/mm3 (0.0-0.8) 04/02/22 19:39 Eosinophils # (Manual) 0.0 K/mm3 (0.0-0.4) 04/02/22 19:39 Basophils # (Manual) 0.0 K/mm3 (0.0-0.1) 04/02/22 19:39 Metamyelocytes # 0.0 K/mm3 04/02/22 19:39 Myelocytes # 0.0 K/mm3 04/02/22 19:39 Promyelocytes # 0.0 K/mm3 04/02/22 19:39 Blast Cells # 0.0 K/mm3 04/02/22 19:39 WBC Morphology Not Reportable 04/02/22 19:39 Hypersegmented Neuts Not Reportable 04/02/22 19:39 Hyposegmented Neuts Not Reportable 04/02/22 19:39 Hypogranular Neuts Not Reportable 04/02/22 19:39 Smudge Cells Not Reportable 04/02/22 19:39 Toxic Granulation Not Reportable 04/02/22 19:39 Toxic Vacuolation Not Reportable 04/02/22 19:39 Dohle Bodies Not Reportable 04/02/22 19:39 Pelger-Huet Anomaly Not Reportable 04/02/22 19:39 Terry Rods Not Reportable 04/02/22 19:39 Platelet Estimate Consistent w auto 04/02/22 19:39 Clumped Platelets Not Reportable 04/02/22 19:39 Plt Clumps, EDTA Not Reportable 04/02/22 19:39 Large Platelets Not Reportable 04/02/22 19:39 Giant Platelets Not Reportable 04/02/22 19:39 Platelet Satelliting Not Reportable 04/02/22 19:39 Plt Morphology Comment Not Reportable 04/02/22 19:39 RBC Morphology Not Reportable 04/02/22 19:39 Dimorphic RBCs Not Reportable 04/02/22 19:39 Polychromasia Not Reportable 04/02/22 19:39 Hypochromasia Not Reportable 04/02/22 19:39 Poikilocytosis Not Reportable 04/02/22 19:39 Anisocytosis 1+ 04/02/22 19:39 Microcytosis Not Reportable 04/02/22 19:39 Macrocytosis Not Reportable 04/02/22 19:39 Spherocytes Not Reportable 04/02/22 19:39 Pappenheimer Bodies Not Reportable 04/02/22 19:39 Sickle Cells Not Reportable 04/02/22 19:39 Target Cells Not Reportable 04/02/22 19:39 Tear Drop Cells Not Reportable 04/02/22 19:39 Ovalocytes Not Reportable 04/02/22 19:39 Helmet Cells Not Reportable 04/02/22 19:39 [place] Bodies Not Reportable 04/02/22 19:39 [place] Rings Not Reportable 04/02/22 19:39 [place] Cells Not Reportable 04/02/22 19:39 Bite Cells Not Reportable 04/02/22 19:39 Crenated Cell Not Reportable 04/02/22 19:39 Elliptocytes Not Reportable 04/02/22 19:39 Acanthocytes (Spur) Not Reportable 04/02/22 19:39 Rouleaux Not Reportable 04/02/22 19:39 Hemoglobin C Crystals Not Reportable 04/02/22 19:39 Schistocytes Not Reportable 04/02/22 19:39 Malaria parasites Not Reportable 04/02/22 19:39 [place] Bodies Not Reportable 04/02/22 19:39 Hem Pathologist Commnt No 04/02/22 19:39 PT 13.6 Sec. (12.2-14.9) 04/13/22 04:30 INR 0.94 (0.87-1.13) 04/13/22 04:30 APTT 35.7 Sec. (24.2-36.6) 04/07/22 03:51 ABG pH 7.457 pH Units (7.350-7.450) H 04/25/22 09:00 ABG pCO2 61.7 mm Hg 04/25/22 09:00 ABG pO2 66.7 mm Hg (80.0-90.0) L 04/25/22 09:00 ABG HCO3 42.6 mmol/L (20.0-26.0) H 04/25/22 09:00 ABG O2 Saturation 95.7 % (95.0-99.0) 04/25/22 09:00 ABG O2 Content 20.0 (0.0-44) 04/25/22 09:00 ABG Base Excess 15.3 mmol/L (-2.0-3.0) H 04/25/22 09:00 ABG Hemoglobin 8.8 gm/dl (14.0-18.0) L 04/25/22 09:00 ABG Carboxyhemoglobin 1.3 % (0.0-5.0) 04/25/22 09:00 ABG Methemoglobin 0.4 % (0.0-1.5) 04/25/22 09:00 Oxyhemoglobin 94.1 % (95.0-99.0) L 04/25/22 09:00 FiO2 35 % 04/25/22 09:00 Sodium 137 mmol/L (137-145) 04/26/22 04:22 Potassium 4.3 mmol/L (3.6-5.0) 04/26/22 04:22 Chloride 93.2 mmol/L (98-107) L 04/26/22 04:22 Carbon Dioxide 37 mmol/L (22-30) H 04/26/22 04:22 Anion Gap 11 mmol/L 04/26/22 04:22 BUN 16 mg/dL (9-20) 04/26/22 04:22 Creatinine < 0.2 mg/dL (0.8-1.3) L 04/26/22 04:22 Estimated GFR > 60 ml/min 04/26/22 04:22 BUN/Creatinine Ratio 80 % 04/26/22 04:22 Glucose 114 mg/dL (75-100) H 04/26/22 04:22 POC Glucose 128 mg/dL (70-105) H 04/20/22 11:40 Lactic Acid 1.90 mmol/L (0.7-2.0) 04/02/22 19:39 Calcium 8.5 mg/dL (8.4-10.2) 04/26/22 04:22 Phosphorus 3.60 mg/dL (2.5-4.5) 04/26/22 04:22 Magnesium 1.90 mg/dL (1.7-2.3) 04/26/22 04:22 Total Bilirubin 0.80 mg/dL (0.1-1.2) 04/02/22 19:39 AST 15 units/L (5-40) 04/02/22 19:39 ALT 9 units/L (7-56) 04/02/22 19:39 Alkaline Phosphatase 43 units/L (35-129) 04/02/22 19:39 Total Creatine Kinase 46 units/L (55-170) L 04/08/22 17:47 CK-MB (CK-2) 2.6 ng/mL (0.0-4.0) 04/08/22 17:47 CK-MB (CK-2) Rel Index 5.6 (0-4) H 04/08/22 17:47 Troponin T 0.031 ng/mL (0.00-0.029) H 04/08/22 17:47 C-Reactive Protein 31.60 mg/dL (0.00-1.30) H 04/04/22 04:18 Total Protein 4.6 g/dL (6.3-8.2) L 04/02/22 19:39 Albumin 2.7 g/dL (3.9-5) L 04/02/22 19:39 Albumin/Globulin Ratio 1.4 % 04/02/22 19:39 Triglycerides 80 mg/dL (2-149) 04/02/22 19:39 Cholesterol 94 mg/dL (50-199) 04/02/22 19:39 LDL Cholesterol Direct 27 mg/dL (50-130) L 04/02/22 19:39 HDL Cholesterol 47 mg/dL (40-59) 04/02/22 19:39 Cholesterol/HDL Ratio 2.00 % 04/02/22 19:39 Procalcitonin 0.08 ng/mL (<0.15) 04/04/22 04:18 Urine Color [place] (Yellow) 04/05/22 17:45 Urine Turbidity Cloudy (Clear) 04/05/22 17:45 Urine pH 5.0 (5.0-7.0) 04/05/22 17:45 Ur Specific [place] 1.021 (1.003-1.030) 04/05/22 17:45 Urine Protein 30 mg/dl mg/dL (Negative) 04/05/22 17:45 Urine Glucose (UA) Neg mg/dL (Negative) 04/05/22 17:45 Urine Ketones Tr mg/dL (Negative) 04/05/22 17:45 Urine Blood Sm (Negative) 04/05/22 17:45 Urine Nitrite Neg (Negative) 04/05/22 17:45 Urine Bilirubin Neg (Negative) 04/05/22 17:45 Urine Urobilinogen < 2.0 mg/dL (<2.0) 04/05/22 17:45 Ur Leukocyte Esterase Tr (Negative) 04/05/22 17:45 Urine WBC (Auto) 8.0 /HPF (0.0-6.0) H 04/05/22 17:45 Urine RBC (Auto) 3.0 /HPF (0.0-6.0) 04/05/22 17:45 U Epithel Cells (Auto) 2.0 /HPF (0-13.0) 04/05/22 17:45 Urine Bacteria (Auto) 1+ /HPF (Negative) 04/02/22 Unknown Hyaline Casts 1 /LPF 04/05/22 17:45 Urine Mucus 3+ /HPF 04/05/22 17:45 Nasal Screen MRSA (PCR) Negative (Negative) 04/05/22 12:37 Vancomycin Trough 6.0 ug/mL (5.0-20.0) 04/05/22 18:53 Coronavirus (PCR) Negative (Negative) 04/07/22 14:52 Perez/IV: Voiding Method Condom Catheter Active Medications - Current Medications Current Medications: Generic Name Dose Route Start Last Admin Trade Name Freq PRN Reason Stop Dose Admin Acetaminophen 650 mg 04/02/22 23:53 04/21/22 16:23 Acetaminophen 325 Mg Tab PO 650 mg Q6H PRN Administration Pain MILD(1-3)/Fever >100.5/FAITH Acetylcysteine 200 mg 04/21/22 16:00 04/26/22 07:31 Acetylcysteine 20% 200 Mg/1 Ml *For Inhalation Use* INHALATION 200 mg Q8HRT SEGUNDO Administration Albuterol 2.5 mg 04/06/22 16:00 04/26/22 07:31 Albuterol 2.5 Mg/3 Ml Nebu IH 2.5 mg Q8HRT SEGUNDO Administration Bisacodyl 10 mg 04/07/22 09:44 04/12/22 10:06 Bisacodyl 10 Mg Rect Supp NM 10 mg QDAY PRN Administration Constipation Dextrose 50 ml 04/06/22 17:54 Dextrose 50% In Water (25gm) 50 Ml Syringe IV Q30MIN PRN Hypoglycemia Protocol Docusate Sodium 100 mg 04/03/22 15:00 04/26/22 09:16 Docusate Sodium 100 Mg/10 Ml Oral Liqd PO Not Given BID SEGUNDO Famotidine 20 mg 04/06/22 10:00 04/26/22 09:15 Famotidine 20 Mg Tab FEEDTUBE 20 mg BID SEGUNDO Administration Fentanyl 50 mcg 04/04/22 15:56 04/23/22 17:00 Fentanyl 100 Mcg/2 Ml Inj IV 50 mcg Q2HR PRN Administration For CPOT of greater than 3 Heparin Sodium (Porcine) 5,000 unit 04/03/22 06:00 04/26/22 05:05 Heparin 5,000 Unit/1 Ml Vial SUB-Q 5,000 unit Q8HR SEGUNDO Administration Insulin Human Regular 0 units 04/06/22 18:00 04/26/22 06:14 Insulin Regular, Human 100 Units/1 Ml SUB-Q Not Given Q6H [facility] Protocol Magnesium Hydroxide 30 ml 04/02/22 23:53 Magnesium Hydroxide (Mom) Oral Liqd Udc PO Q4H PRN Constipation Metoprolol Tartrate 25 mg 04/16/22 18:00 04/26/22 05:05 Metoprolol Tartrate 25 Mg Tab FEEDTUBE 25 mg Q6HR SEGUNDO Administration Ondansetron HCl 4 mg 04/02/22 23:53 Ondansetron 4 Mg/2 Ml Inj IV Q8H PRN Nausea And Vomiting Polyethylene Glycol 17 gm 04/08/22 10:00 04/26/22 09:16 Polyethylene Glycol 3350 17 Gm Powder PO Not Given QDAY [facility] Quetiapine Fumarate 50 mg 04/22/22 10:00 04/26/22 09:15 Quetiapine 25 Mg Tab PO 50 mg BID SEGUNDO Administration Senna 17.6 mg 04/03/22 22:00 04/26/22 09:15 Sennosides Oral Liqd 8.8 Mg/5 Ml Oral Liqd PO Not Given Q12HR SEGUNDO Sodium Chloride 10 ml 04/03/22 10:00 04/26/22 09:15 Sodium Chloride 0.9% 10 Ml Flush Syringe IV 10 ml BID SEGUNDO Administration Sodium Chloride 10 ml 04/02/22 23:53 Sodium Chloride 0.9% 10 Ml Flush Syringe IV PRN PRN LINE FLUSH Nutrition/Malnutrition Assess - Dietary Evaluation Nutrition/Malnutrition Findings: Nutrition Notes Start: 04/04/22 13:13 Freq: Status: Active Protocol: Document 04/20/22 11:36 COLLEEN (Rec: 04/20/22 12:00 COLLEEN [id number]) Nutrition Notes Initial or Follow up Reassessment Current Diagnosis Coronary Artery Disease, Respiratory Failure, Malnutrition Other Pertinent Diagnosis HCAP, HFpEF, ALS, Pleural Effusion, R-Lung Collapse, Hypotension, ... Current Diet TF-Vital AF 1.2 Inderjit @ 50 ml/hr (since D 04/15). Labs/Tests 04/19: Cl 96.2, CO2 40, BUN 24 , Crea <0.2, Glu 125, Ca 8.3. Pertinent Medications 04/20: Nutritionally unremarkable. Height 5 ft 4.8 in Weight 46.8 kg [place] Body Weight (kg) 61.27 BMI 17.2 Weight change and time frame No body weight change reported in 2 weeks. Weight Status Underweight Subjective/Other Information RD consult for routine F/U on TF tolerance/continuation. TF continues as prescribed, and well tolerated, according to RN notes. RN note on 04/20/22 06:13: No acute changes throughout night . Trach intact to vent, with Fi02 @ 55%. Peg intact with patient tolerating tube feedings as ordered. Vitals stable. Currently 93/53, 93, 14, 95%. Pt continues on Mechanical ventilation, O2 saturation @ 96%, according to Physical Assessment Histroy notes. Pt presents constipation, according to Physical Assessment Histroy notes. Tracheostomy and PEG tube placement on 04/15, well tolerated, according to Progress notes. LTAC placement still pending. Percent of energy/protein needs met: Prescribed TF-Vital AF 1.2 Inderjit @ 50 ml/hr provides for energy/protein needs (1,450 Kcal/91 g) during LOS, 98% Kcal; 100% AA. Burn Absent Trauma Absent GI Symptoms Constipation Difficulty In Swallowing,Chewing Food Allergy No Skin Integrity/Comment Sacral open wound. Current % PO Other Minimum of two criteria No #1 Nutrition Diagnosis Inadequate oral intake Diagnosis Progress(for reassessment Continues documentation) Is patient on ventilator? Yes Is Patient Ambulatory and/or Out of Bed No REE-(Cofield-St. Jeor-confined to bed) [phone] Calculation Used for Recommendations Cofield-St Jeor Additional Notes Protein: 1.2-2 g/Kg IBW; 73- 122 g/day. Fluids: 1 ml/Kcal, or as per MD. Nutrition Intervention Nutrition Support: Continue TF-Vital AF 1.2 Inderjit @ 50 ml/hr. Flush: 80 ml water Q 4 hr, or as per MD. Kcal 1,450 Protein (gm) 91 Carbohydrates (gm) 134 Fat (gm) 65 Fluid (mL) 980 Fiber (gm) 6 % RDI: 98% Kcal; 100% AA. Goal #1 Provide at least 75% of energy /protein needs through Enteral Feeding during LOS. Follow-Up By: 04/27/22 Additional Comments Continue monitoring TF tolerance and BM. <NORM GRAYSON - Last Filed: 04/28/22 14:36> Assessment and Plan Assessment and plan: I saw and evaluated the patient. Discussed with the nurse practitioner and agree with their findings and plan as documented in this note. Hospitalist Physical - Constitutional Vitals: Temp Pulse Resp BP Pulse Ox 99.1 F 109 H 15 111/66 100 04/28/22 11:43 04/28/22 13:00 04/28/22 13:00 04/28/22 13:00 04/28/22 13:00 HEART Score - HEART Score Troponin: Troponin T 0.031 ng/mL (0.00-0.029) H 04/08/22 17:47 Results - Labs CBC & Chem 7: 04/26/22 04:22 04/26/22 04:22 Labs: Laboratory Last Values WBC 10.0 K/mm3 (4.5-11.0) 04/26/22 04:22 RBC 2.88 M/mm3 (3.65-5.03) L 04/26/22 04:22 Hgb 8.9 gm/dl (11.8-15.2) L 04/26/22 04:22 Hct 26.8 % (35.5-45.6) L 04/26/22 04:22 MCV 93 fl (84-94) 04/26/22 04:22 MCH 31 pg (28-32) 04/26/22 04:22 MCHC 33 % (32-34) 04/26/22 04:22 RDW 13.8 % (13.2-15.2) 04/26/22 04:22 Plt Count 376 K/mm3 (140-440) 04/26/22 04:22 Lymph % (Auto) 4.3 % (13.4-35.0) L 04/07/22 03:51 [place] % (Auto) 8.8 % (0.0-7.3) H 04/07/22 03:51 Eos % (Auto) 0.1 % (0.0-4.3) 04/07/22 03:51 Baso % (Auto) 0.2 % (0.0-1.8) 04/07/22 03:51 Lymph # (Auto) 0.6 K/mm3 (1.2-5.4) L 04/07/22 03:51 [place] # (Auto) 1.3 K/mm3 (0.0-0.8) H 04/07/22 03:51 Eos # (Auto) 0.0 K/mm3 (0.0-0.4) 04/07/22 03:51 Baso # (Auto) 0.0 K/mm3 (0.0-0.1) 04/07/22 03:51 Add Manual Diff Complete 04/02/22 19:39 Total Counted 100 04/02/22 19:39 Seg Neutrophils % 86.6 % (40.0-70.0) H 04/07/22 03:51 Seg Neuts % (Manual) 94.0 % (40.0-70.0) H 04/02/22 19:39 Band Neutrophils % 0 % 04/02/22 19:39 Lymphocytes % (Manual) 1.0 % (13.4-35.0) L 04/02/22 19:39 Reactive Lymphs % (Man) 0 % 04/02/22 19:39 Monocytes % (Manual) 5.0 % (0.0-7.3) 04/02/22 19:39 Eosinophils % (Manual) 0 % (0.0-4.3) 04/02/22 19:39 Basophils % (Manual) 0 % (0.0-1.8) 04/02/22 19:39 Metamyelocytes % 0 % 04/02/22 19:39 Myelocytes % 0 % 04/02/22 19:39 Promyelocytes % 0 % 04/02/22 19:39 Blast Cells % 0 % 04/02/22 19:39 Nucleated RBC % Not Reportable 04/02/22 19:39 Seg Neutrophils # 12.7 K/mm3 (1.8-7.7) H 04/07/22 03:51 Seg Neutrophils # Man 13.4 K/mm3 (1.8-7.7) H 04/02/22 19:39 Band Neutrophils # 0.0 K/mm3 04/02/22 19:39 Lymphocytes # (Manual) 0.1 K/mm3 (1.2-5.4) L 04/02/22 19:39 Abs React Lymphs (Man) 0.0 K/mm3 04/02/22 19:39 Monocytes # (Manual) 0.7 K/mm3 (0.0-0.8) 04/02/22 19:39 Eosinophils # (Manual) 0.0 K/mm3 (0.0-0.4) 04/02/22 19:39 Basophils # (Manual) 0.0 K/mm3 (0.0-0.1) 04/02/22 19:39 Metamyelocytes # 0.0 K/mm3 04/02/22 19:39 Myelocytes # 0.0 K/mm3 04/02/22 19:39 Promyelocytes # 0.0 K/mm3 04/02/22 19:39 Blast Cells # 0.0 K/mm3 04/02/22 19:39 WBC Morphology Not Reportable 04/02/22 19:39 Hypersegmented Neuts Not Reportable 04/02/22 19:39 Hyposegmented Neuts Not Reportable 04/02/22 19:39 Hypogranular Neuts Not Reportable 04/02/22 19:39 Smudge Cells Not Reportable 04/02/22 19:39 Toxic Granulation Not Reportable 04/02/22 19:39 Toxic Vacuolation Not Reportable 04/02/22 19:39 Dohle Bodies Not Reportable 04/02/22 19:39 Pelger-Huet Anomaly Not Reportable 04/02/22 19:39 Terry Rods Not Reportable 04/02/22 19:39 Platelet Estimate Consistent w auto 04/02/22 19:39 Clumped Platelets Not Reportable 04/02/22 19:39 Plt Clumps, EDTA Not Reportable 04/02/22 19:39 Large Platelets Not Reportable 04/02/22 19:39 Giant Platelets Not Reportable 04/02/22 19:39 Platelet Satelliting Not Reportable 04/02/22 19:39 Plt Morphology Comment Not Reportable 04/02/22 19:39 RBC Morphology Not Reportable 04/02/22 19:39 Dimorphic RBCs Not Reportable 04/02/22 19:39 Polychromasia Not Reportable 04/02/22 19:39 Hypochromasia Not Reportable 04/02/22 19:39 Poikilocytosis Not Reportable 04/02/22 19:39 Anisocytosis 1+ 04/02/22 19:39 Microcytosis Not Reportable 04/02/22 19:39 Macrocytosis Not Reportable 04/02/22 19:39 Spherocytes Not Reportable 04/02/22 19:39 Pappenheimer Bodies Not Reportable 04/02/22 19:39 Sickle Cells Not Reportable 04/02/22 19:39 Target Cells Not Reportable 04/02/22 19:39 Tear Drop Cells Not Reportable 04/02/22 19:39 Ovalocytes Not Reportable 04/02/22 19:39 Helmet Cells Not Reportable 04/02/22 19:39 Patric[place] Bodies Not Reportable 04/02/22 19:39 [place] Rings Not Reportable 04/02/22 19:39 [place] Cells Not Reportable 04/02/22 19:39 Bite Cells Not Reportable 04/02/22 19:39 Crenated Cell Not Reportable 04/02/22 19:39 Elliptocytes Not Reportable 04/02/22 19:39 Acanthocytes (Spur) Not Reportable 04/02/22 19:39 Rouleaux Not Reportable 04/02/22 19:39 Hemoglobin C Crystals Not Reportable 04/02/22 19:39 Schistocytes Not Reportable 04/02/22 19:39 Malaria parasites Not Reportable 04/02/22 19:39 [place] Bodies Not Reportable 04/02/22 19:39 Hem Pathologist Commnt No 04/02/22 19:39 PT 13.6 Sec. (12.2-14.9) 04/13/22 04:30 INR 0.94 (0.87-1.13) 04/13/22 04:30 APTT 35.7 Sec. (24.2-36.6) 04/07/22 03:51 ABG pH 7.457 pH Units (7.350-7.450) H 04/25/22 09:00 ABG pCO2 61.7 mm Hg 04/25/22 09:00 ABG pO2 66.7 mm Hg (80.0-90.0) L 04/25/22 09:00 ABG HCO3 42.6 mmol/L (20.0-26.0) H 04/25/22 09:00 ABG O2 Saturation 95.7 % (95.0-99.0) 04/25/22 09:00 ABG O2 Content 20.0 (0.0-44) 04/25/22 09:00 ABG Base Excess 15.3 mmol/L (-2.0-3.0) H 04/25/22 09:00 ABG Hemoglobin 8.8 gm/dl (14.0-18.0) L 04/25/22 09:00 ABG Carboxyhemoglobin 1.3 % (0.0-5.0) 04/25/22 09:00 ABG Methemoglobin 0.4 % (0.0-1.5) 04/25/22 09:00 Oxyhemoglobin 94.1 % (95.0-99.0) L 04/25/22 09:00 FiO2 35 % 04/25/22 09:00 Sodium 137 mmol/L (137-145) 04/26/22 04:22 Potassium 4.3 mmol/L (3.6-5.0) 04/26/22 04:22 Chloride 93.2 mmol/L (98-107) L 04/26/22 04:22 Carbon Dioxide 37 mmol/L (22-30) H 04/26/22 04:22 Anion Gap 11 mmol/L 04/26/22 04:22 BUN 16 mg/dL (9-20) 04/26/22 04:22 Creatinine < 0.2 mg/dL (0.8-1.3) L 04/26/22 04:22 Estimated GFR > 60 ml/min 04/26/22 04:22 BUN/Creatinine Ratio 80 % 04/26/22 04:22 Glucose 114 mg/dL (75-100) H 04/26/22 04:22 POC Glucose 128 mg/dL (70-105) H 04/20/22 11:40 Lactic Acid 1.90 mmol/L (0.7-2.0) 04/02/22 19:39 Calcium 8.5 mg/dL (8.4-10.2) 04/26/22 04:22 Phosphorus 3.60 mg/dL (2.5-4.5) 04/26/22 04:22 Magnesium 1.90 mg/dL (1.7-2.3) 04/26/22 04:22 Total Bilirubin 0.80 mg/dL (0.1-1.2) 04/02/22 19:39 AST 15 units/L (5-40) 04/02/22 19:39 ALT 9 units/L (7-56) 04/02/22 19:39 Alkaline Phosphatase 43 units/L (35-129) 04/02/22 19:39 Total Creatine Kinase 46 units/L (55-170) L 04/08/22 17:47 CK-MB (CK-2) 2.6 ng/mL (0.0-4.0) 04/08/22 17:47 CK-MB (CK-2) Rel Index 5.6 (0-4) H 04/08/22 17:47 Troponin T 0.031 ng/mL (0.00-0.029) H 04/08/22 17:47 C-Reactive Protein 31.60 mg/dL (0.00-1.30) H 04/04/22 04:18 Total Protein 4.6 g/dL (6.3-8.2) L 04/02/22 19:39 Albumin 2.7 g/dL (3.9-5) L 04/02/22 19:39 Albumin/Globulin Ratio 1.4 % 04/02/22 19:39 Triglycerides 80 mg/dL (2-149) 04/02/22 19:39 Cholesterol 94 mg/dL (50-199) 04/02/22 19:39 LDL Cholesterol Direct 27 mg/dL (50-130) L 04/02/22 19:39 HDL Cholesterol 47 mg/dL (40-59) 04/02/22 19:39 Cholesterol/HDL Ratio 2.00 % 04/02/22 19:39 Procalcitonin 0.08 ng/mL (<0.15) 04/04/22 04:18 Urine Color [place] (Yellow) 04/05/22 17:45 Urine Turbidity Cloudy (Clear) 04/05/22 17:45 Urine pH 5.0 (5.0-7.0) 04/05/22 17:45 Ur Specific [place] 1.021 (1.003-1.030) 04/05/22 17:45 Urine Protein 30 mg/dl mg/dL (Negative) 04/05/22 17:45 Urine Glucose (UA) Neg mg/dL (Negative) 04/05/22 17:45 Urine Ketones Tr mg/dL (Negative) 04/05/22 17:45 Urine Blood Sm (Negative) 04/05/22 17:45 Urine Nitrite Neg (Negative) 04/05/22 17:45 Urine Bilirubin Neg (Negative) 04/05/22 17:45 Urine Urobilinogen < 2.0 mg/dL (<2.0) 04/05/22 17:45 Ur Leukocyte Esterase Tr (Negative) 04/05/22 17:45 Urine WBC (Auto) 8.0 /HPF (0.0-6.0) H 04/05/22 17:45 Urine RBC (Auto) 3.0 /HPF (0.0-6.0) 04/05/22 17:45 U Epithel Cells (Auto) 2.0 /HPF (0-13.0) 04/05/22 17:45 Urine Bacteria (Auto) 1+ /HPF (Negative) 04/02/22 Unknown Hyaline Casts 1 /LPF 04/05/22 17:45 Urine Mucus 3+ /HPF 04/05/22 17:45 Nasal Screen MRSA (PCR) Negative (Negative) 04/05/22 12:37 Vancomycin Trough 6.0 ug/mL (5.0-20.0) 04/05/22 18:53 Coronavirus (PCR) Negative (Negative) 04/07/22 14:52 Perez/IV: Voiding Method Condom Catheter Active Medications - Current Medications Current Medications: Generic Name Dose Route Start Last Admin Trade Name Freq PRN Reason Stop Dose Admin Acetaminophen 650 mg 04/02/22 23:53 04/21/22 16:23 Acetaminophen 325 Mg Tab PO 650 mg Q6H PRN Administration Pain MILD(1-3)/Fever >100.5/FAITH Acetylcysteine 200 mg 04/21/22 16:00 04/28/22 07:15 Acetylcysteine 20% 200 Mg/1 Ml *For Inhalation Use* INHALATION 200 mg Q8HRT SEGUNDO Administration Albuterol 2.5 mg 04/06/22 16:00 04/28/22 07:14 Albuterol 2.5 Mg/3 Ml Nebu IH 2.5 mg Q8HRT SEGUNDO Administration Bisacodyl 10 mg 04/07/22 09:44 04/12/22 10:06 Bisacodyl 10 Mg Rect Supp NM 10 mg QDAY PRN Administration Constipation Dextrose 50 ml 04/06/22 17:54 Dextrose 50% In Water (25gm) 50 Ml Syringe IV Q30MIN PRN Hypoglycemia Protocol Docusate Sodium 100 mg 04/28/22 10:00 04/28/22 09:24 Docusate Sodium 100 Mg/10 Ml Oral Liqd FEEDTUBE 100 mg BID SEGUNDO Administration Famotidine 20 mg 04/06/22 10:00 04/28/22 09:24 Famotidine 20 Mg Tab FEEDTUBE 20 mg BID SEGUNDO Administration Fentanyl 50 mcg 04/04/22 15:56 04/23/22 17:00 Fentanyl 100 Mcg/2 Ml Inj IV 50 mcg Q2HR PRN Administration For CPOT of greater than 3 Heparin Sodium (Porcine) 5,000 unit 04/03/22 06:00 04/28/22 13:38 Heparin 5,000 Unit/1 Ml Vial SUB-Q 5,000 unit Q8HR SEGUNDO Administration Insulin Human Regular 0 units 04/06/22 18:00 04/28/22 13:39 Insulin Regular, Human 100 Units/1 Ml SUB-Q Not Given Q6H [facility] Protocol Magnesium Hydroxide 30 ml 04/02/22 23:53 Magnesium Hydroxide (Mom) Oral Liqd Udc PO Q4H PRN Constipation Metoprolol Tartrate 25 mg 04/16/22 18:00 04/28/22 12:25 Metoprolol Tartrate 25 Mg Tab FEEDTUBE 25 mg Q6HR SEGUNDO Administration Ondansetron HCl 4 mg 04/02/22 23:53 Ondansetron 4 Mg/2 Ml Inj IV Q8H PRN Nausea And Vomiting Polyethylene Glycol 17 gm 04/08/22 10:00 04/28/22 09:24 Polyethylene Glycol 3350 17 Gm Powder PO 17 gm QDAY SEGUNDO Administration Quetiapine Fumarate 50 mg 04/28/22 10:00 04/28/22 09:25 Quetiapine 25 Mg Tab FEEDTUBE 50 mg BID SEGUNDO Administration Senna 17.6 mg 04/28/22 10:00 04/28/22 09:24 Sennosides Oral Liqd 8.8 Mg/5 Ml Oral Liqd FEEDTUBE 17.6 mg Q12HR SEGUNDO Administration Sodium Chloride 10 ml 04/03/22 10:00 04/28/22 09:26 Sodium Chloride 0.9% 10 Ml Flush Syringe IV 10 ml BID SEGUNDO Administration Sodium Chloride 10 ml 04/02/22 23:53 Sodium Chloride 0.9% 10 Ml Flush Syringe IV PRN PRN LINE FLUSH Nutrition/Malnutrition Assess - Dietary Evaluation Nutrition/Malnutrition Findings: Nutrition Notes Start: 04/04/22 13:13 Freq: Status: Active Protocol: Document 04/27/22 11:53 COLLEEN (Rec: 04/27/22 12:21 COLLEEN [id number]) Nutrition Notes Initial or Follow up Reassessment Current Diagnosis Coronary Artery Disease, Decubitus(Pressure Ulcer), Sepsis,Respiratory Failure, Malnutrition Other Pertinent Diagnosis HCAP, HFpEF, ALS, Pleural Effusion, R-Lung Collapse, .. . Current Diet TF-Vital AF 1.2 Inderjit @ 50 ml/hr (since D 04/15). Labs/Tests 04/27: Cl 93.2, CO2 37, Crea < 0.2, Glu 114. Pertinent Medications 04/27: Nutritionally unremarkable. Height 5 ft 4.8 in Weight 46.8 kg [place] Body Weight (kg) 61.27 BMI 17.2 Weight change and time frame No body weight change reported in 3 weeks. Weight Status Underweight Subjective/Other Information RD consult for routine F/U on TF tolerance/continuation. TF continues as prescribed, and well tolerated, according to RN notes. Pt continues on Mechanical ventilation, O2 saturation @ 96%, according to Physical Assessment Histroy notes. Pt continues to present constipation, according to Physical Assessment Histroy notes. 3 failed attempts to wean Pt from Mechanical Ventilation, Pt is back to previous settings in PRCV, according to RN notes. Pt is pending authorization for LTAC placement, according to Progress notes. Percent of energy/protein needs met: Prescribed TF-Vital AF 1.2 Inderjit @ 50 ml/hr provides for energy/protein needs (1,450 Kcal/91 g) during LOS, 98% Kcal; 100% AA. Burn Absent Trauma Absent GI Symptoms Constipation Difficulty In Swallowing,Chewing Food Allergy No Skin Integrity/Comment Sacral open wound. Current % PO Other Minimum of two criteria No #1 Nutrition Diagnosis Inadequate oral intake Diagnosis Progress(for reassessment Continues documentation) Is patient on ventilator? Yes Is Patient Ambulatory and/or Out of Bed No REE-([facility]-confined to bed) [phone] Calculation Used for Recommendations [facility] Additional Notes Protein: 1.2-2 g/Kg IBW; 73- 122 g/day. Fluids: 1 ml/Kcal, or as per MD. Nutrition Intervention Nutrition Support: Continue TF-Vital AF 1.2 Inderjit @ 50 ml/hr. Flush: 80 ml water Q 4 hr, or as per MD. Kcal 1,450 Protein (gm) 91 Carbohydrates (gm) 134 Fat (gm) 65 Fluid (mL) 980 Fiber (gm) 6 % RDI: 98% Kcal; 100% AA. Goal #1 Provide at least 75% of energy /protein needs through Enteral Feeding during LOS. Follow-Up By: 05/04/22 Additional Comments Continue monitoring TF tolerance and BM.
--- NOTE | 2022-04-26 12:03 | Progress Note ---
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 Protein calorie malnutrition Acute Bronchopneumonia HCAP Hypotension NSTEMI Hypernatremia Acute Metabolic Encephalopathy H/o Amyotrophic Lateral Sclerosis Nonverbal at Baseline Thrombocytopenia Protein Caloric Malnutrition Constipation - again failed bedside SBT trial with myself and RT in room even with p-supp of 20 cm H2O he only took a few breaths and failed due to low minute ventilation - placed back on full support - reduced peep to 10 and increased FiO2 to 40% - care plan discussed with patient and family in room - continue care as below otherwise; - bronchoscopy if develops large volume atelectasis - continue mucomyst nebs for thick tenacious secretions - continue scheduled CPT - continue Seroquel for anxiolysis / delirium - continue bronchodilators with pulmonary hygiene per RT - Daily SAT and SBT assessment as tolerated - continue to wean supplemental oxygen for target O2 sat's > 90% acutely - VAP bundle addressed - continue lung protective strategies - wean per pulmonary driven protocols otherwise - continue accuchecks with glycemic control per SSI (While critically ill target blood glucose of 140-180 mg/dL; avoid hypoglycemia) - sedation prn for target RASS 0 to -1 - avoid nephrotoxins, renally dose all medications - continue to avoid benzodiazepine's, reduce the possibility of delirium - AB's per ID rec's - prn analgesia per CPOT score - Maintenance of sleep-wake cycle, avoid delirium - continue enteral nutritional support at goal rate as tolerated - G.I. & VTE prophylaxis - PT/OT/ROM exercises - continue mobility protocols for pressure ulcer prophylaxis - Monitor hemodynamics closely - continue other care per attending / other consultants - discharge planning ongoing concurrently COVID SPECIFIC INTERVENTIONS - test pending .... Re-evaluate in am & prn CONDITION: CRITICAL PROGNOSIS: GUARDED CODE STATUS: FULL CODE The high probability of a clinically significant, sudden or life-threatening deterioration of the [respiratory, cardiovascular & neurologic] system(s) required my full and direct attention, intervention and personal management. The aggregate critical care time was [32] minutes without overlap. Time includes spent on; [x] Data Review and interpretation [x] Patient assessment and monitoring of vital signs [x] Documentation [x] Medication orders and management Subjective Date of service: 04/26/22 Principal diagnosis: Ac and ch hypercapnic and hypoxemic Resp Failure; ALS; HCAP; Sepsis; NSTEMI Interval history: Patient is seen today for: Acute and chronic hypercapnic and hypoxemic Respiratory Failure; ALS; HCAP; Sepsis; NSTEMI; AMS; Hypernatremia; Thrombocytopenia; Protein Caloric Malnutrition; Constipation Seen and examined at bedside; 24hour events reviewed; nursing and respiratory care staff consulted; no adverse overnight events reported to me; resting peacefully in bed; remains on MVS; FiO2 at 35%; failed a SBT done by RT earlier today; his daughter is visiting; he denies N/V/F/C Objective Vital Signs - 12hr 04/26/22 04/26/22 04/26/22 00:11 01:00 02:00 Temperature Pulse Rate 94 H 87 94 H Pulse Rate [ Bilateral] Respiratory 14 15 Rate Respiratory Rate [Bilateral ] Blood Pressure 112/69 107/75 108/72 O2 Sat by Pulse 91 Oximetry O2 Sat by Pulse Oximetry [ Assessment] 04/26/22 04/26/22 04/26/22 03:00 04:00 05:00 Temperature 97.8 F Pulse Rate 98 H 85 97 H Pulse Rate [ Bilateral] Respiratory 15 15 14 Rate Respiratory Rate [Bilateral ] Blood Pressure 125/82 111/72 111/72 O2 Sat by Pulse 87 98 92 Oximetry O2 Sat by Pulse Oximetry [ Assessment] 04/26/22 04/26/22 04/26/22 05:05 06:00 07:00 Temperature Pulse Rate 91 H 83 89 Pulse Rate [ Bilateral] Respiratory 13 14 Rate Respiratory Rate [Bilateral ] Blood Pressure 111/72 134/77 112/66 O2 Sat by Pulse 98 93 Oximetry O2 Sat by Pulse Oximetry [ Assessment] 04/26/22 04/26/22 04/26/22 07:31 08:00 08:05 Temperature Pulse Rate 87 95 H Pulse Rate [ 93 H Bilateral] Respiratory 15 Rate Respiratory 14 Rate [Bilateral ] Blood Pressure 108/61 114/73 O2 Sat by Pulse 98 97 98 Oximetry O2 Sat by Pulse 98 Oximetry [ Assessment] 04/26/22 04/26/22 04/26/22 08:35 09:00 10:00 Temperature Pulse Rate 90 100 H 94 H Pulse Rate [ Bilateral] Respiratory 8 L 18 14 Rate Respiratory Rate [Bilateral ] Blood Pressure 119/75 116/70 102/61 O2 Sat by Pulse 97 93 Oximetry O2 Sat by Pulse Oximetry [ Assessment] 04/26/22 04/26/22 11:00 11:50 Temperature Pulse Rate 97 H 100 H Pulse Rate [ Bilateral] Respiratory 15 Rate Respiratory Rate [Bilateral ] Blood Pressure 105/60 113/68 O2 Sat by Pulse 94 64 L Oximetry O2 Sat by Pulse Oximetry [ Assessment] Constitutional: alert, appears uncomfortable, other (orally intubated in bed with mildly increased respiratory effort at rest) Eyes: non-icteric ENT: oropharynx moist, other (+ midline tracheostomy) Neck: supple, no lymphadenopathy, no JVD Effort: mildly labored Ascultation: Bilateral: diminished breath sounds (bases), rhonchi Percussion: Bilateral: not dull Cardiovascular: regular rate and rhythm, other (S1,S2) Gastrointestinal: normoactive bowel sounds, soft, non-tender, non-distended Integumentary: normal Extremities: no cyanosis, no edema, pink and warm, pulses normal Neurologic: pupils equal and round, other (functional quadriplegia) Psychiatric: anxious (affect), other CBC and BMP: 04/26/22 04:22 04/26/22 04:22 ABG, PT/INR, D-dimer: ABG ABG pH 7.457 pH Units (7.350-7.450) H 04/25/22 09:00 ABG pCO2 61.7 mm Hg 04/25/22 09:00 ABG pO2 66.7 mm Hg (80.0-90.0) L 04/25/22 09:00 ABG O2 Saturation 95.7 % (95.0-99.0) 04/25/22 09:00 PT/INR, D-dimer PT 13.6 Sec. (12.2-14.9) 04/13/22 04:30 INR 0.94 (0.87-1.13) 04/13/22 04:30 Abnormal lab findings: Abnormal Labs 04/02/22 04/02/22 04/02/22 19:39 19:39 19:39 WBC 14.3 H RBC Hgb Hct MCV 96 H Plt Count 104 L Lymph % (Auto) [place] % (Auto) Lymph # (Auto) [place] # (Auto) Seg Neutrophils % Seg Neuts % (Manual) 94.0 H Lymphocytes % (Manual) 1.0 L Seg Neutrophils # Seg Neutrophils # Man 13.4 H Lymphocytes # (Manual) 0.1 L PT 15.9 H INR 1.14 H ABG pH ABG pO2 ABG HCO3 ABG O2 Saturation ABG Base Excess ABG Hemoglobin Oxyhemoglobin Sodium 151 H Potassium Chloride Carbon Dioxide BUN Creatinine 0.5 L Glucose POC Glucose Calcium 8.2 L Phosphorus Magnesium 1.60 L Total Creatine Kinase CK-MB (CK-2) Rel Index Troponin T 0.048 H C-Reactive Protein Total Protein 4.6 L Albumin 2.7 L LDL Cholesterol Direct 27 L Urine WBC (Auto) 04/02/22 04/03/22 04/03/22 19:42 05:14 06:30 WBC RBC Hgb Hct MCV Plt Count Lymph % (Auto) [place] % (Auto) Lymph # (Auto) [place] # (Auto) Seg Neutrophils % Seg Neuts % (Manual) Lymphocytes % (Manual) Seg Neutrophils # Seg Neutrophils # Man Lymphocytes # (Manual) PT INR ABG pH 7.471 H 7.496 H ABG pO2 47.8 L 91.0 H ABG HCO3 30.6 H ABG O2 Saturation 94.4 L ABG Base Excess 6.2 H ABG Hemoglobin 11.0 L 12.8 L Oxyhemoglobin 93.1 L Sodium 149 H Potassium 3.4 L Chloride Carbon Dioxide BUN Creatinine 0.4 L Glucose POC Glucose Calcium Phosphorus Magnesium Total Creatine Kinase CK-MB (CK-2) Rel Index Troponin T C-Reactive Protein Total Protein Albumin LDL Cholesterol Direct Urine WBC (Auto) 04/04/22 04/04/22 04/04/22 04:18 04:18 05:50 WBC 11.8 H RBC Hgb Hct MCV Plt Count 132 L Lymph % (Auto) [place] % (Auto) Lymph # (Auto) [place] # (Auto) Seg Neutrophils % Seg Neuts % (Manual) Lymphocytes % (Manual) Seg Neutrophils # Seg Neutrophils # Man Lymphocytes # (Manual) PT INR ABG pH 7.517 H ABG pO2 115.5 H ABG HCO3 29.9 H ABG O2 Saturation ABG Base Excess 6.7 H ABG Hemoglobin 12.3 L Oxyhemoglobin Sodium Potassium 3.5 L Chloride Carbon Dioxide 31 H BUN Creatinine 0.3 L Glucose 153 H POC Glucose Calcium Phosphorus 1.40 L Magnesium 1.50 L Total Creatine Kinase CK-MB (CK-2) Rel Index Troponin T C-Reactive Protein 31.60 H Total Protein Albumin LDL Cholesterol Direct Urine WBC (Auto) 04/05/22 04/05/22 04/05/22 02:50 05:25 11:28 WBC RBC Hgb Hct MCV Plt Count Lymph % (Auto) [place] % (Auto) Lymph # (Auto) [place] # (Auto) Seg Neutrophils % Seg Neuts % (Manual) Lymphocytes % (Manual) Seg Neutrophils # Seg Neutrophils # Man Lymphocytes # (Manual) PT INR ABG pH 7.455 H ABG pO2 50.7 L ABG HCO3 30.5 H ABG O2 Saturation 89.4 L ABG Base Excess 5.9 H ABG Hemoglobin 11.8 L Oxyhemoglobin 88.2 L Sodium Potassium Chloride Carbon Dioxide 32 H BUN Creatinine 0.2 L Glucose 110 H POC Glucose 124 H Calcium 7.9 L Phosphorus Magnesium Total Creatine Kinase CK-MB (CK-2) Rel Index Troponin T C-Reactive Protein Total Protein Albumin LDL Cholesterol Direct Urine WBC (Auto) 04/05/22 04/05/22 04/06/22 17:45 Unknown 04:00 WBC RBC 3.55 L Hgb 11.1 L 11.5 L Hct 33.2 L 35.1 L MCV Plt Count 113 L 114 L Lymph % (Auto) [place] % (Auto) Lymph # (Auto) [place] # (Auto) Seg Neutrophils % Seg Neuts % (Manual) Lymphocytes % (Manual) Seg Neutrophils # Seg Neutrophils # Man Lymphocytes # (Manual) PT INR ABG pH ABG pO2 ABG HCO3 ABG O2 Saturation ABG Base Excess ABG Hemoglobin Oxyhemoglobin Sodium Potassium Chloride Carbon Dioxide BUN Creatinine Glucose POC Glucose Calcium Phosphorus Magnesium Total Creatine Kinase CK-MB (CK-2) Rel Index Troponin T C-Reactive Protein Total Protein Albumin LDL Cholesterol Direct Urine WBC (Auto) 8.0 H 04/06/22 04/06/22 04/07/22 04:00 08:30 00:04 WBC RBC Hgb Hct MCV Plt Count Lymph % (Auto) [place] % (Auto) Lymph # (Auto) [place] # (Auto) Seg Neutrophils % Seg Neuts % (Manual) Lymphocytes % (Manual) Seg Neutrophils # Seg Neutrophils # Man Lymphocytes # (Manual) PT INR ABG pH ABG pO2 60.8 L ABG HCO3 30.5 H ABG O2 Saturation 93.3 L ABG Base Excess 4.9 H ABG Hemoglobin 12.4 L Oxyhemoglobin 92.1 L Sodium Potassium 3.0 L Chloride Carbon Dioxide BUN Creatinine < 0.2 L Glucose 130 H POC Glucose 117 H Calcium 8.1 L Phosphorus Magnesium Total Creatine Kinase CK-MB (CK-2) Rel Index Troponin T C-Reactive Protein Total Protein Albumin LDL Cholesterol Direct Urine WBC (Auto) 04/07/22 04/07/22 04/07/22 03:51 03:51 03:51 WBC 14.6 H RBC 3.57 L Hgb 11.1 L Hct 33.2 L MCV Plt Count 118 L Lymph % (Auto) 4.3 L [place] % (Auto) 8.8 H Lymph # (Auto) 0.6 L [place] # (Auto) 1.3 H Seg Neutrophils % 86.6 H Seg Neuts % (Manual) Lymphocytes % (Manual) Seg Neutrophils # 12.7 H Seg Neutrophils # Man Lymphocytes # (Manual) PT 15.2 H INR ABG pH ABG pO2 ABG HCO3 ABG O2 Saturation ABG Base Excess ABG Hemoglobin Oxyhemoglobin Sodium 133 L Potassium Chloride 96.0 L Carbon Dioxide 31 H BUN Creatinine 0.2 L Glucose 130 H POC Glucose Calcium 8.0 L Phosphorus Magnesium Total Creatine Kinase CK-MB (CK-2) Rel Index Troponin T C-Reactive Protein Total Protein Albumin LDL Cholesterol Direct Urine WBC (Auto) 04/07/22 04/07/22 04/08/22 04:25 09:10 04:49 WBC 16.1 H RBC 3.54 L Hgb 10.9 L Hct 33.3 L MCV Plt Count Lymph % (Auto) [place] % (Auto) Lymph # (Auto) [place] # (Auto) Seg Neutrophils % Seg Neuts % (Manual) Lymphocytes % (Manual) Seg Neutrophils # Seg Neutrophils # Man Lymphocytes # (Manual) PT INR ABG pH ABG pO2 71.0 L 63.4 L ABG HCO3 31.5 H 40.0 H ABG O2 Saturation 94.9 L ABG Base Excess 5.9 H 13.6 H ABG Hemoglobin 11.3 L 9.0 L Oxyhemoglobin 93.6 L Sodium Potassium Chloride Carbon Dioxide BUN Creatinine Glucose POC Glucose Calcium Phosphorus Magnesium Total Creatine Kinase CK-MB (CK-2) Rel Index Troponin T C-Reactive Protein Total Protein Albumin LDL Cholesterol Direct Urine WBC (Auto) 04/08/22 04/08/22 04/08/22 04:49 09:53 10:25 WBC RBC Hgb Hct MCV Plt Count Lymph % (Auto) [place] % (Auto) Lymph # (Auto) [place] # (Auto) Seg Neutrophils % Seg Neuts % (Manual) Lymphocytes % (Manual) Seg Neutrophils # Seg Neutrophils # Man Lymphocytes # (Manual) PT INR ABG pH ABG pO2 ABG HCO3 34.7 H ABG O2 Saturation ABG Base Excess 7.9 H ABG Hemoglobin 11.0 L Oxyhemoglobin Sodium 136 L Potassium Chloride 97.7 L Carbon Dioxide 33 H BUN Creatinine 0.2 L Glucose 155 H POC Glucose Calcium Phosphorus Magnesium Total Creatine Kinase CK-MB (CK-2) Rel Index Troponin T 0.030 H C-Reactive Protein Total Protein Albumin LDL Cholesterol Direct Urine WBC (Auto) 04/08/22 04/08/22 04/08/22 11:19 17:47 18:06 WBC RBC Hgb Hct MCV Plt Count Lymph % (Auto) [place] % (Auto) Lymph # (Auto) [place] # (Auto) Seg Neutrophils % Seg Neuts % (Manual) Lymphocytes % (Manual) Seg Neutrophils # Seg Neutrophils # Man Lymphocytes # (Manual) PT INR ABG pH ABG pO2 ABG HCO3 ABG O2 Saturation ABG Base Excess ABG Hemoglobin Oxyhemoglobin Sodium Potassium Chloride Carbon Dioxide BUN Creatinine Glucose POC Glucose 121 H Calcium Phosphorus Magnesium Total Creatine Kinase 31 L 46 L CK-MB (CK-2) Rel Index 6.4 H 5.6 H Troponin T 0.030 H 0.031 H C-Reactive Protein Total Protein Albumin LDL Cholesterol Direct Urine WBC (Auto) 04/09/22 04/09/22 04/09/22 04:35 04:35 11:24 WBC 11.5 H RBC 3.16 L Hgb 9.9 L Hct 29.4 L MCV Plt Count 131 L Lymph % (Auto) [place] % (Auto) Lymph # (Auto) [place] # (Auto) Seg Neutrophils % Seg Neuts % (Manual) Lymphocytes % (Manual) Seg Neutrophils # Seg Neutrophils # Man Lymphocytes # (Manual) PT INR ABG pH ABG pO2 ABG HCO3 ABG O2 Saturation ABG Base Excess ABG Hemoglobin Oxyhemoglobin Sodium Potassium Chloride 97.1 L Carbon Dioxide 35 H BUN Creatinine < 0.2 L Glucose 145 H POC Glucose 147 H Calcium Phosphorus Magnesium Total Creatine Kinase CK-MB (CK-2) Rel Index Troponin T C-Reactive Protein Total Protein Albumin LDL Cholesterol Direct Urine WBC (Auto) 04/09/22 04/09/2222 13:00 17:32 23:48 WBC RBC Hgb Hct MCV Plt Count Lymph % (Auto) [place] % (Auto) Lymph # (Auto) [place] # (Auto) Seg Neutrophils % Seg Neuts % (Manual) Lymphocytes % (Manual) Seg Neutrophils # Seg Neutrophils # Man Lymphocytes # (Manual) PT INR ABG pH ABG pO2 66.6 L ABG HCO3 38.2 H ABG O2 Saturation 94.4 L ABG Base Excess 10.7 H ABG Hemoglobin 10.7 L Oxyhemoglobin 92.8 L Sodium Potassium Chloride Carbon Dioxide BUN Creatinine Glucose POC Glucose 143 H 114 H Calcium Phosphorus Magnesium Total Creatine Kinase CK-MB (CK-2) Rel Index Troponin T C-Reactive Protein Total Protein Albumin LDL Cholesterol Direct Urine WBC (Auto) 04/10/22 04/10/22 04/10/22 04:48 04:48 05:34 WBC RBC 2.91 L Hgb 9.1 L Hct 27.7 L MCV 95 H Plt Count Lymph % (Auto) [place] % (Auto) Lymph # (Auto) [place] # (Auto) Seg Neutrophils % Seg Neuts % (Manual) Lymphocytes % (Manual) Seg Neutrophils # Seg Neutrophils # Man Lymphocytes # (Manual) PT INR ABG pH ABG pO2 ABG HCO3 ABG O2 Saturation ABG Base Excess ABG Hemoglobin Oxyhemoglobin Sodium Potassium Chloride 95.7 L Carbon Dioxide 38 H BUN Creatinine < 0.2 L Glucose 118 H POC Glucose 127 H Calcium Phosphorus Magnesium Total Creatine Kinase CK-MB (CK-2) Rel Index Troponin T C-Reactive Protein Total Protein Albumin LDL Cholesterol Direct Urine WBC (Auto) 04/10/22 04/11/22 04/11/22 23:10 04:15 04:15 WBC 17.2 H RBC 2.98 L Hgb 9.2 L Hct 27.9 L MCV Plt Count Lymph % (Auto) [place] % (Auto) Lymph # (Auto) [place] # (Auto) Seg Neutrophils % Seg Neuts % (Manual) Lymphocytes % (Manual) Seg Neutrophils # Seg Neutrophils # Man Lymphocytes # (Manual) PT INR ABG pH ABG pO2 ABG HCO3 ABG O2 Saturation ABG Base Excess ABG Hemoglobin Oxyhemoglobin Sodium Potassium Chloride 96.1 L Carbon Dioxide 35 H BUN Creatinine < 0.2 L Glucose 138 H POC Glucose 106 H Calcium 8.3 L Phosphorus Magnesium Total Creatine Kinase CK-MB (CK-2) Rel Index Troponin T C-Reactive Protein Total Protein Albumin LDL Cholesterol Direct Urine WBC (Auto) 04/11/22 04/11/22 04/11/22 05:31 13:18 16:20 WBC RBC Hgb Hct MCV Plt Count Lymph % (Auto) [place] % (Auto) Lymph # (Auto) [place] # (Auto) Seg Neutrophils % Seg Neuts % (Manual) Lymphocytes % (Manual) Seg Neutrophils # Seg Neutrophils # Man Lymphocytes # (Manual) PT INR ABG pH ABG pO2 57.8 L ABG HCO3 40.5 H ABG O2 Saturation 90.6 L ABG Base Excess 12.6 H ABG Hemoglobin 10.5 L Oxyhemoglobin 89.0 L Sodium Potassium Chloride Carbon Dioxide BUN Creatinine Glucose POC Glucose 129 H 132 H Calcium Phosphorus Magnesium Total Creatine Kinase CK-MB (CK-2) Rel Index Troponin T C-Reactive Protein Total Protein Albumin LDL Cholesterol Direct Urine WBC (Auto) 04/11/22 04/11/22 04/12/22 17:29 23:17 04:00 WBC 17.4 H RBC 2.96 L Hgb 9.0 L Hct 28.0 L MCV 95 H Plt Count Lymph % (Auto) [place] % (Auto) Lymph # (Auto) [place] # (Auto) Seg Neutrophils % Seg Neuts % (Manual) Lymphocytes % (Manual) Seg Neutrophils # Seg Neutrophils # Man Lymphocytes # (Manual) PT INR ABG pH ABG pO2 ABG HCO3 ABG O2 Saturation ABG Base Excess ABG Hemoglobin Oxyhemoglobin Sodium Potassium Chloride Carbon Dioxide BUN Creatinine Glucose POC Glucose 125 H 151 H Calcium Phosphorus Magnesium Total Creatine Kinase CK-MB (CK-2) Rel Index Troponin T C-Reactive Protein Total Protein Albumin LDL Cholesterol Direct Urine WBC (Auto) 04/12/22 04/12/22 04/12/22 04:00 17:03 23:39 WBC RBC Hgb Hct MCV Plt Count Lymph % (Auto) [place] % (Auto) Lymph # (Auto) [place] # (Auto) Seg Neutrophils % Seg Neuts % (Manual) Lymphocytes % (Manual) Seg Neutrophils # Seg Neutrophils # Man Lymphocytes # (Manual) PT INR ABG pH ABG pO2 ABG HCO3 ABG O2 Saturation ABG Base Excess ABG Hemoglobin Oxyhemoglobin Sodium Potassium Chloride 97.4 L Carbon Dioxide 37 H BUN Creatinine < 0.2 L Glucose 127 H POC Glucose 106 H 107 H Calcium Phosphorus Magnesium Total Creatine Kinase CK-MB (CK-2) Rel Index Troponin T C-Reactive Protein Total Protein Albumin LDL Cholesterol Direct Urine WBC (Auto) 04/13/22 04/13/22 04/13/22 04:30 04:30 17:39 WBC 14.1 H RBC 2.66 L Hgb 8.4 L Hct 25.5 L MCV 96 H Plt Count Lymph % (Auto) [place] % (Auto) Lymph # (Auto) [place] # (Auto) Seg Neutrophils % Seg Neuts % (Manual) Lymphocytes % (Manual) Seg Neutrophils # Seg Neutrophils # Man Lymphocytes # (Manual) PT INR ABG pH ABG pO2 ABG HCO3 ABG O2 Saturation ABG Base Excess ABG Hemoglobin Oxyhemoglobin Sodium Potassium Chloride 93.9 L Carbon Dioxide 39 H BUN Creatinine < 0.2 L Glucose POC Glucose 134 H Calcium Phosphorus 1.90 L Magnesium Total Creatine Kinase CK-MB (CK-2) Rel Index Troponin T C-Reactive Protein Total Protein Albumin LDL Cholesterol Direct Urine WBC (Auto) 04/14/22 04/14/22 04/14/22 05:03 05:03 09:10 WBC 15.6 H RBC 3.02 L Hgb 9.3 L Hct 28.8 L MCV 95 H Plt Count Lymph % (Auto) [place] % (Auto) Lymph # (Auto) [place] # (Auto) Seg Neutrophils % Seg Neuts % (Manual) Lymphocytes % (Manual) Seg Neutrophils # Seg Neutrophils # Man Lymphocytes # (Manual) PT INR ABG pH ABG pO2 66.9 L ABG HCO3 44.5 H ABG O2 Saturation ABG Base Excess 17.2 H ABG Hemoglobin 8.1 L Oxyhemoglobin 94.8 L Sodium Potassium Chloride 93.8 L Carbon Dioxide 42 H* BUN Creatinine < 0.2 L Glucose 117 H POC Glucose Calcium Phosphorus Magnesium Total Creatine Kinase CK-MB (CK-2) Rel Index Troponin T C-Reactive Protein Total Protein Albumin LDL Cholesterol Direct Urine WBC (Auto) 04/15/22 04/15/22 04/16/22 04:44 04:44 04:16 WBC 13.0 H 12.6 H RBC 3.19 L 3.09 L Hgb 9.6 L 9.5 L Hct 30.2 L 29.1 L MCV 95 H Plt Count 456 H Lymph % (Auto) [place] % (Auto) Lymph # (Auto) [place] # (Auto) Seg Neutrophils % Seg Neuts % (Manual) Lymphocytes % (Manual) Seg Neutrophils # Seg Neutrophils # Man Lymphocytes # (Manual) PT INR ABG pH ABG pO2 ABG HCO3 ABG O2 Saturation ABG Base Excess ABG Hemoglobin Oxyhemoglobin Sodium Potassium Chloride 95.5 L Carbon Dioxide 37 H BUN Creatinine < 0.2 L Glucose POC Glucose Calcium Phosphorus Magnesium Total Creatine Kinase CK-MB (CK-2) Rel Index Troponin T C-Reactive Protein Total Protein Albumin LDL Cholesterol Direct Urine WBC (Auto) 04/16/22 04/16/22 04/16/22 04:16 05:00 14:00 WBC RBC Hgb Hct MCV Plt Count Lymph % (Auto) [place] % (Auto) Lymph # (Auto) [place] # (Auto) Seg Neutrophils % Seg Neuts % (Manual) Lymphocytes % (Manual) Seg Neutrophils # Seg Neutrophils # Man Lymphocytes # (Manual) PT INR ABG pH 7.324 L ABG pO2 55.6 L ABG HCO3 45.3 H ABG O2 Saturation 87.1 L ABG Base Excess 16.6 H ABG Hemoglobin 8.6 L Oxyhemoglobin 85.7 L Sodium Potassium Chloride 97.6 L Carbon Dioxide 36 H BUN Creatinine < 0.2 L Glucose 109 H POC Glucose 120 H Calcium Phosphorus Magnesium Total Creatine Kinase CK-MB (CK-2) Rel Index Troponin T C-Reactive Protein Total Protein Albumin LDL Cholesterol Direct Urine WBC (Auto) 04/17/22 04/17/22 04/17/22 04:36 04:36 04:57 WBC 14.4 H RBC 3.08 L Hgb 9.4 L Hct 29.0 L MCV Plt Count Lymph % (Auto) [place] % (Auto) Lymph # (Auto) [place] # (Auto) Seg Neutrophils % Seg Neuts % (Manual) Lymphocytes % (Manual) Seg Neutrophils # Seg Neutrophils # Man Lymphocytes # (Manual) PT INR ABG pH ABG pO2 ABG HCO3 ABG O2 Saturation ABG Base Excess ABG Hemoglobin Oxyhemoglobin Sodium Potassium Chloride 95.9 L Carbon Dioxide 39 H BUN Creatinine < 0.2 L Glucose 140 H POC Glucose 137 H Calcium 8.3 L Phosphorus Magnesium Total Creatine Kinase CK-MB (CK-2) Rel Index Troponin T C-Reactive Protein Total Protein Albumin LDL Cholesterol Direct Urine WBC (Auto) 04/17/22 04/17/22 04/18/22 09:15 18:01 04:20 WBC 11.2 H RBC 3.00 L Hgb 9.3 L Hct 28.6 L MCV 95 H Plt Count Lymph % (Auto) [place] % (Auto) Lymph # (Auto) [place] # (Auto) Seg Neutrophils % Seg Neuts % (Manual) Lymphocytes % (Manual) Seg Neutrophils # Seg Neutrophils # Man Lymphocytes # (Manual) PT INR ABG pH 7.345 L ABG pO2 ABG HCO3 48.2 H ABG O2 Saturation ABG Base Excess 19.2 H ABG Hemoglobin 9.7 L Oxyhemoglobin Sodium Potassium Chloride Carbon Dioxide BUN Creatinine Glucose POC Glucose 129 H Calcium Phosphorus Magnesium Total Creatine Kinase CK-MB (CK-2) Rel Index Troponin T C-Reactive Protein Total Protein Albumin LDL Cholesterol Direct Urine WBC (Auto) 04/18/22 04/18/22 04/18/22 04:20 17:35 23:50 WBC RBC Hgb Hct MCV Plt Count Lymph % (Auto) [place] % (Auto) Lymph # (Auto) [place] # (Auto) Seg Neutrophils % Seg Neuts % (Manual) Lymphocytes % (Manual) Seg Neutrophils # Seg Neutrophils # Man Lymphocytes # (Manual) PT INR ABG pH ABG pO2 ABG HCO3 ABG O2 Saturation ABG Base Excess ABG Hemoglobin Oxyhemoglobin Sodium Potassium Chloride 96.8 L Carbon Dioxide 43 H* BUN 22 H Creatinine < 0.2 L Glucose 137 H POC Glucose 128 H 123 H Calcium 8.2 L Phosphorus Magnesium Total Creatine Kinase CK-MB (CK-2) Rel Index Troponin T C-Reactive Protein Total Protein Albumin LDL Cholesterol Direct Urine WBC (Auto) 04/19/22 04/19/22 04/19/22 04:08 04:08 08:50 WBC 16.8 H RBC 3.18 L Hgb 9.8 L Hct 30.1 L MCV 95 H Plt Count Lymph % (Auto) [place] % (Auto) Lymph # (Auto) [place] # (Auto) Seg Neutrophils % Seg Neuts % (Manual) Lymphocytes % (Manual) Seg Neutrophils # Seg Neutrophils # Man Lymphocytes # (Manual) PT INR ABG pH ABG pO2 56.0 L ABG HCO3 47.1 H ABG O2 Saturation 93.3 L ABG Base Excess 20.1 H ABG Hemoglobin 8.0 L Oxyhemoglobin 91.8 L Sodium Potassium Chloride 96.2 L Carbon Dioxide 40 H BUN 24 H Creatinine < 0.2 L Glucose 125 H POC Glucose Calcium 8.3 L Phosphorus Magnesium Total Creatine Kinase CK-MB (CK-2) Rel Index Troponin T C-Reactive Protein Total Protein Albumin LDL Cholesterol Direct Urine WBC (Auto) 04/19/22 04/20/22 04/20/22 12:02 00:40 04:49 WBC 14.7 H RBC 3.36 L Hgb 10.3 L Hct 32.0 L MCV 95 H Plt Count Lymph % (Auto) [place] % (Auto) Lymph # (Auto) [place] # (Auto) Seg Neutrophils % Seg Neuts % (Manual) Lymphocytes % (Manual) Seg Neutrophils # Seg Neutrophils # Man Lymphocytes # (Manual) PT INR ABG pH ABG pO2 ABG HCO3 ABG O2 Saturation ABG Base Excess ABG Hemoglobin Oxyhemoglobin Sodium Potassium Chloride Carbon Dioxide BUN Creatinine Glucose POC Glucose 124 H 140 H Calcium Phosphorus Magnesium Total Creatine Kinase CK-MB (CK-2) Rel Index Troponin T C-Reactive Protein Total Protein Albumin LDL Cholesterol Direct Urine WBC (Auto) 04/20/22 04/20/22 04/21/22 05:36 11:40 04:05 WBC RBC Hgb Hct MCV Plt Count Lymph % (Auto) [place] % (Auto) Lymph # (Auto) [place] # (Auto) Seg Neutrophils % Seg Neuts % (Manual) Lymphocytes % (Manual) Seg Neutrophils # Seg Neutrophils # Man Lymphocytes # (Manual) PT INR ABG pH ABG pO2 ABG HCO3 ABG O2 Saturation ABG Base Excess ABG Hemoglobin Oxyhemoglobin Sodium Potassium Chloride 93.4 L Carbon Dioxide 40 H BUN 25 H Creatinine < 0.2 L Glucose 122 H POC Glucose 125 H 128 H Calcium Phosphorus Magnesium Total Creatine Kinase CK-MB (CK-2) Rel Index Troponin T C-Reactive Protein Total Protein Albumin LDL Cholesterol Direct Urine WBC (Auto) 04/21/22 04/22/22 04/22/22 10:31 05:03 05:03 WBC 12.6 H 12.7 H RBC 2.83 L 2.96 L Hgb 8.6 L 9.0 L Hct 26.9 L 28.0 L MCV 95 H 95 H Plt Count Lymph % (Auto) [place] % (Auto) Lymph # (Auto) [place] # (Auto) Seg Neutrophils % Seg Neuts % (Manual) Lymphocytes % (Manual) Seg Neutrophils # Seg Neutrophils # Man Lymphocytes # (Manual) PT INR ABG pH ABG pO2 ABG HCO3 ABG O2 Saturation ABG Base Excess ABG Hemoglobin Oxyhemoglobin Sodium Potassium Chloride 93.9 L Carbon Dioxide 43 H* BUN 23 H Creatinine < 0.2 L Glucose 137 H POC Glucose Calcium Phosphorus Magnesium Total Creatine Kinase CK-MB (CK-2) Rel Index Troponin T C-Reactive Protein Total Protein Albumin LDL Cholesterol Direct Urine WBC (Auto) 04/22/22 04/23/22 04/24/22 08:34 09:40 04:29 WBC 14.4 H RBC 2.74 L Hgb 8.4 L Hct 25.7 L MCV Plt Count Lymph % (Auto) [place] % (Auto) Lymph # (Auto) [place] # (Auto) Seg Neutrophils % Seg Neuts % (Manual) Lymphocytes % (Manual) Seg Neutrophils # Seg Neutrophils # Man Lymphocytes # (Manual) PT INR ABG pH ABG pO2 54.1 L 56.8 L ABG HCO3 48.5 H 49.0 H ABG O2 Saturation 92.1 L 90.9 L ABG Base Excess 20.9 H 20.8 H ABG Hemoglobin 9.0 L 8.4 L Oxyhemoglobin 90.6 L 89.5 L Sodium Potassium Chloride Carbon Dioxide BUN Creatinine Glucose POC Glucose Calcium Phosphorus Magnesium Total Creatine Kinase CK-MB (CK-2) Rel Index Troponin T C-Reactive Protein Total Protein Albumin LDL Cholesterol Direct Urine WBC (Auto) 04/24/22 04/25/22 04/26/22 04:29 09:00 04:22 WBC RBC 2.88 L Hgb 8.9 L Hct 26.8 L MCV Plt Count Lymph % (Auto) [place] % (Auto) Lymph # (Auto) [place] # (Auto) Seg Neutrophils % Seg Neuts % (Manual) Lymphocytes % (Manual) Seg Neutrophils # Seg Neutrophils # Man Lymphocytes # (Manual) PT INR ABG pH 7.457 H ABG pO2 66.7 L ABG HCO3 42.6 H ABG O2 Saturation ABG Base Excess 15.3 H ABG Hemoglobin 8.8 L Oxyhemoglobin 94.1 L Sodium Potassium Chloride 90.7 L Carbon Dioxide 40 H BUN Creatinine < 0.2 L Glucose 133 H POC Glucose Calcium Phosphorus Magnesium Total Creatine Kinase CK-MB (CK-2) Rel Index Troponin T C-Reactive Protein Total Protein Albumin LDL Cholesterol Direct Urine WBC (Auto) 04/26/22 04:22 WBC RBC Hgb Hct MCV Plt Count Lymph % (Auto) [place] % (Auto) Lymph # (Auto) [place] # (Auto) Seg Neutrophils % Seg Neuts % (Manual) Lymphocytes % (Manual) Seg Neutrophils # Seg Neutrophils # Man Lymphocytes # (Manual) PT INR ABG pH ABG pO2 ABG HCO3 ABG O2 Saturation ABG Base Excess ABG Hemoglobin Oxyhemoglobin Sodium Potassium Chloride 93.2 L Carbon Dioxide 37 H BUN Creatinine < 0.2 L Glucose 114 H POC Glucose Calcium Phosphorus Magnesium Total Creatine Kinase CK-MB (CK-2) Rel Index Troponin T C-Reactive Protein Total Protein Albumin LDL Cholesterol Direct Urine WBC (Auto) Allied health notes reviewed: nursing
--- NOTE | 2022-04-26 18:00 | Progress Note ---
Assessment and Plan - Patient Problems (1) Respiratory failure Current Visit: Yes Status: Acute Plan to address problem: Patient presented with acute respiratory failure, with chest x-ray showing total whiteout of the right lung, due to acute pneumonia, large right pleural effusion and collapse of the right lung. Continue supportive management, antibiotics. (2) Acute coronary syndrome Current Visit: Yes Status: Acute Plan to address problem: The patient's interval ECGs while in the ICU showed dynamic changes of anterior wall ischemia or infarction. Patient has severe comorbidities including progressive total paralysis of ALS, and intercurrent respiratory failure with large right pleural effusion and total collapse of the right lung. Currently assessed as a poor candidate for aggressive cardiac management due to the multiple severe acute and chronic comorbidities. He has been placed on conservative, empiric coronary artery disease medical therapy. A trach PEG procedure has been completed, discharge planning for correction facility placement is in progress. Subjective Date of service: 04/26/22 Principal diagnosis: Ac and ch hypercapnic and hypoxemic Resp Failure; ALS; HCAP; Sepsis; NSTEMI Interval history: Patient is sedated, on the ventilator via tracheostomy. On admeasurer, there is a stable sinus rhythm. Objective Vital Signs Temp Pulse Pulse Pulse Resp Resp Resp 04/26/22 17:05 98 H 04/26/22 15:50 99 H 96 H 14 04/26/22 13:13 101 H 04/26/22 13:00 105 H 18 04/26/22 12:00 98.5 F 103 H 14 04/26/22 11:50 100 H 04/26/22 11:00 97 H 15 04/26/22 10:00 94 H 14 04/26/22 09:00 100 H 18 04/26/22 08:35 90 8 L 04/26/22 08:05 04/26/22 08:00 98.9 F 86 15 04/26/22 07:31 87 93 H 14 04/26/22 07:00 89 14 04/26/22 06:00 83 13 04/26/22 05:05 91 H 04/26/22 05:00 97 H 14 04/26/22 04:00 97.8 F 85 15 04/26/22 03:00 98 H 15 04/26/22 02:00 94 H 15 04/26/22 01:00 87 14 04/26/22 00:11 94 H 04/26/22 00:00 98 F 88 99 H 14 20 04/25/22 23:00 83 14 04/25/22 22:00 86 14 04/25/22 21:02 89 15 04/25/22 21:00 89 14 04/25/22 20:52 84 17 04/25/22 20:00 97.8 F 91 H 14 04/25/22 19:00 91 H 16 BP Pulse Ox Pulse Ox 04/26/22 17:05 123/74 04/26/22 15:50 114/70 99 99 04/26/22 13:13 131/77 04/26/22 13:00 131/77 88 04/26/22 12:00 114/76 92 04/26/22 11:50 113/68 95 04/26/22 11:00 105/60 94 04/26/22 10:00 102/61 04/26/22 09:00 116/70 93 04/26/22 08:35 119/75 97 04/26/22 08:05 98 04/26/22 08:00 114/73 97 04/26/22 07:31 108/61 98 98 04/26/22 07:00 112/66 93 04/26/22 06:00 134/77 98 04/26/22 05:05 111/72 04/26/22 05:00 111/72 92 04/26/22 04:00 111/72 98 04/26/22 03:00 125/82 87 04/26/22 02:00 108/72 04/26/22 01:00 107/75 91 04/26/22 00:11 112/69 04/26/22 00:00 112/69 90 97 04/25/22 23:00 102/64 91 04/25/22 22:00 124/74 89 04/25/22 21:02 119/77 96 04/25/22 21:00 119/77 93 04/25/22 20:52 109/66 95 04/25/22 20:00 120/75 96 04/25/22 19:00 113/74 97 - Physical Examination General: Other (On the vent via tracheostomy) HEENT: Positive: PERRL, Normocephaly, Other (ET-tube in place) Neck: Positive: neck supple, trachea midline (intubated). Negative: JVD/HJR Cardiac: Positive: Reg Rate and Rhythm Lungs: Positive: Decreased Breath Sounds Neuro: Positive: Weakness (Generalized myopathy, patient with ALS), Other (On the vent via tracheostomy) Abdomen: Positive: Soft Skin: Positive: Clear Extremities: Present: Other (TR.EDEMA). Absent: edema (NO) - Labs and Meds CBC 04/26/22 Range/Units 04:22 WBC 10.0 (4.5-11.0) K/mm3 RBC 2.88 L (3.65-5.03) M/mm3 Hgb 8.9 L (11.8-15.2) gm/dl Hct 26.8 L (35.5-45.6) % Plt Count 376 (140-440) K/mm3 Comprehensive Metabolic Panel 04/26/22 Range/Units 04:22 Sodium 137 (137-145) mmol/L Potassium 4.3 (3.6-5.0) mmol/L Chloride 93.2 L (98-107) mmol/L Carbon Dioxide 37 H (22-30) mmol/L BUN 16 (9-20) mg/dL Creatinine < 0.2 L (0.8-1.3) mg/dL Glucose 114 H (75-100) mg/dL Calcium 8.5 (8.4-10.2) mg/dL - Allied health notes Allied health notes reviewed: nursing
[2022-04-27] MEDS: HEPARIN 5,000 UNIT/1 ML VIAL SUB-Q SCH ×3 (05:05→21:53)
[2022-04-27] MEDS: METOPROLOL TARTRATE 25 MG TAB FEEDTUBE SCH ×3 (05:05→17:04)
[2022-04-27] MEDS: INSULIN REGULAR, HUMAN 100 UNITS/1 ML SUB-Q SCH ×3 (05:22→17:05)
[2022-04-27] MEDS: ACETYLCYSTEINE 20% 200 MG/1 ML *FOR INHALATION USE INHALATION SCH ×2 (07:23→16:25)
[2022-04-27] MEDS: ALBUTEROL 2.5 MG/3 ML NEBU IH SCH ×2 (07:23→16:24)
[2022-04-27] MEDS: POLYETHYLENE GLYCOL 3350 17 GM POWDER PO SCH (09:25)
[2022-04-27] MEDS: DOCUSATE SODIUM 100 MG/10 ML ORAL LIQD PO SCH ×2 (09:25→21:53)
[2022-04-27] MEDS: QUEtiapine 25 MG TAB PO SCH ×2 (09:25→21:53)
[2022-04-27] MEDS: SENNOSIDES ORAL LIQD 8.8 MG/5 ML ORAL LIQD PO SCH ×2 (09:25→21:53)
[2022-04-27] MEDS: FAMOTIDINE 20 MG TAB FEEDTUBE SCH ×2 (09:25→21:54)
--- NOTE | 2022-04-27 10:12 | Progress Note ---
<ALEK SMITH - Last Filed: 04/27/22 18:02> Assessment and Plan Assessment and plan: This is a 57-year-old male with known history of ALS, recently hospitalized at [facility] admitted for acute hypoxemic respiratory failure 2/2 pneumonia Hospital Course to Date: 04/03: Intubated and Sedated on versed gtt, RASS-5. CT head/brain noted with no acute intracranial abnormality. Plan to initiated precededx gtt and wean off versed for a RASS goal of 0 to -2. CT chect also reviewed, findings are most consistent with acute bronchopneumonia. Continue empiric IV Abx, vent adjustment per CCM. ID consulted. Continue to F/U on cultures. Titrate pressor for MAP above 65. Medical records requested from [facility]. 04/04: Remains stable on the vent, easily arousable on precedex gtt, not following commands. Plan for SAT/SBT today. PRN analgesia for CPOT greater than 3. Fevers improved, cultures and procal pending. Continue current IV abx, ID also consulted. Remains on low dose pressors, titrate pressors for a MAP above 65. 04/05: Long discussion with family with use of translation phone with CCM regarding goals of care. Family to have meeting amongst themselves and informed care team of decisions. Fentanyl drip added for respiratory distress. Remains on Precedex drip. Antibiotics per ID. Given 2L NS bolus with levophed gtt 04/06: Family discussion with Dr. Grayson for goals of care. CXR shows possible mucus plug, continue CPT as FiO2 is being able to be weaned. Potassium repleted. Weaning fentnyl gtt. 04/07: Ultrasound guided thoracentesis today scheduled, inadequate amount of pleural effusion on so not completed. Patient was started on Levophed overnight which was weaned off this morning however had to be started twice a day. Remains on fentanyl and Precedex. Cardiology discontinued BB and ACEi in setting of hypotension. 04/08: COVID-19 PCR negative. Routine EEG ordered by cardiology which showed ST changes, cardiology aware. They will continue conservative treatment. Repeat troponins 0.030 which are less than admit of 0.048. Dr. Grayson had a long discu ssion with with the use of registered nurse cardiovascular icu today at bedside and has not made a decision regarding goals of care. Possible consult to surgery for trach/PEG early next week. Continues to require Precedex and fentanyl drip for sedation. Carvedilol/lisinopril discontinued as patient is continuously on Levophed. 04/09: No acute events reported overnight, remains on fentanyl, Precedex and Levophed drips. Dr. Grayson and Dr. Pineda updated family at bedside extensively today. Consulted surgery for trach/PEG. COVID-19 PCR negative. 04/10: Patient noted to have desaturation episodes, FiO2 increased slightly to 35%. Will add Mucomyst. Remains on fentanyl and Precedex. Off of Levophed. Surgery consulted for trach/PEG. 04/11: FiO2 increased over night likely related to hypoxia, continues on fent gtt, weaning precedex gtt as he is also on Seroquel. Will d/w CCM re scheduled or prn oxycodone 04/12: Periods of hypoxia and tachycardia this am. Symptoms improved post deep suction and tracheal lavage, Repeat CXR noted with no significant change. Continue CPT and mucomyst. Plan for possible trach/PEG tomorrow by general surgery. 04/13: Remains stable on the vent. Patient is wake and tracking but does not follow simple commands. No report of hypoxia from overnight, continue CPT and mucomyst. Plan for track and PEG today by General Surgery. Plan for LTAC placement post procedure, case management to arrange. 04/14: VIRGILIO overnight, Trach and PEG postponed for today by general surgery. Plan for LTAC placement post procedure, case management to arrange. 04/15: S/p Trach and PEG. Up to 80% FiO2 this am, this am CXR noted suggesting possible mucus plug. D/W [facility] plan for bronch today. Continue CPT and mucomyst. Plan of care thoroughly discussed with patient's and son (who translated for ) at the bedside. Per , restaurant maintenance technician had already discussed the risks and benefits of the procedure yesterday. She verbalized understanding and agreed with procedure and current care plan, consent signed. Okay to use PEG-tube for meds this am, resume TF once okay by general Surgery. Case management to arrange LTAC placement. 04/16: s/p Bronchocopy by [facility]. FiO2 down to 60%, angela 10 this am. This am CXR with moderate improvement. Continue CPT and mucomyst, wean Fio2 as tolerated for SPO2 above 92%. Patient is tolerating TF, advance to goal as ordered. Possible LTAC placement, case management to arrange. 04/17: VIRGILIO overnight. remains stable on the vent, recent CXR and this am ABG n oted. Continue CPT and mucomyst, wean Fio2 as tolerated. 04/18: Remains stable on the vent, Fio2 down to 55% and peep of 8 this am. Continue to wean as tolerated, CPT, and mucomyst. Dsiposition- LTAC placement, case management to arrange. 04/19: No acute events overnight. Continue current management. 04/20: No acute events overnight, continue current management 04/21: Patient had chest ultrasound which showed trace pleural effusions, chest x-ray improved after the addition of Mucomyst yesterday. FiO2 55-65%. No acute events overnight. more interactive today. 04/22: Seroquel changed to BID, FiO2 was increased to 60%. RT increased FIO2 to 100 d/t desaturation into the 80s but was able to wean down. CCM increased PEEP and decreased FiO2. 04/23: CCM increase PEEP, no acute events reported overnight. 04/24: Spoke to RT about decreasing FiO2 as tolerated. No acute events reported overnight. Continue supportive management. 04/25: Weaning as tolerated. no acute events overnight. RT to attempt CPAP again today 04/26: VIRGILIO overnight. Patient failed PSV trial again this morning. Continue s upportive management and daily PST trial. 04/27: Patient failed PSV trial again this am due to episodes of apnea. Continue daily PSV trial as tolerated. Case management to arrange LTAC placement Assessment and Plan #Acute Hypoxemic Respiratory Failure / #Acute Bronchopneumonia - Intubated in the ED on 04/02 for hypoxemia and airway protection - 04/14 s/p Trach and PEG - 04/15 CXR reviewed complete opacity of the righ side suggesting possible mucus plug. See report for detail - 04/15 s/p Bronchoscopy by CCM - Vent setting: PRVC-40%,10,14,400 - No ABG this am - CCM consulted, appreciate recommendations - Patient failed PST trial again today due to episodes of apnea - Continue daily PSVT as tolerated - Continue CPT and mucomyst per [facility] - VAP bundle addressed - Aspiration precaution HOB above 30 - PRN ABG and CXR per CCM - Continue SPO2 monitoring for SPO2 goal above 92% #Sepsis #Acute Bronchopneumonia #HCAP #Leukocytosis - CXR shows moderate to large layering effusion on the right, see report for full detail - CT chest also reviewed, findings are most consistent with acute bronchopneumonia. See report for full detail - Patient was recent hospitalized for pneumonia - Patient remains afebrile - Tracheal aspirate with Pseudomonas aeruginosa, Enterobacter aerogenes - 04/02 blood culture with bacillus species, 04/05 blood culture NGTD - Patient completed E15sysp of Cefepine - CRP 31.6, procalcitonin 0.08 - MRSA negative - Daily CBC monitor - ID signed off #Suspect ischemic coronary artery disease #h/o cardiomyopathy - Low BP probably due to hypovolemia vs sedation vs infectious process - s/p Levophed gtt - Elevated troponin possibly a type II troponin leak - Cardiology consulted, appreciated recommendations - Echocardiogram shows ejection fraction of 40 to 45%, mild global hypokinesis of left ventricle - Continue BB - Continue blood pressure monitor per protocol - Maintain MAP above 65 - On heparin SubQ #H/o Amyotrophic Lateral Sclerosis #Acute Metabolic Encephalopathy-resolved #Nonverbal at Baseline - Presented with AMS, per family patient is nonverbal at baseline but responsive - CT head/Brain with no acute intracranial process - Off sedation. Awake and calm - Continue Seroquel per CCM - Avoid benzodiazepine to reduce the possibility of delirium - PRN analgesia for CPOT greater than 3 - Maintenance of sleep-wake cycle #Thrombocytopenia-resolved - Continue to trend plt - On heparin subQ - Monitor for s/s of any active bleeding #Hypernatremia-resolved - Monitor and replace electrolytes as needed - Continue to trend BMP #Protein Caloric Malnutrition - Albumin 2.7, Total protein 4.6 - 04/15 s/p EPG-Tube placement - Continue enteral nutrition - Nutrition consulted #Constipation - Noted on CXR and KUB - last BM 04/26 - Continue BR #GI/DVT Prophylaxis - PPI- Pepcid - Heparin SubQ - SCDs to bilateral lower extremities while in bed #Advance Care Planning - Disease education data, care plan, diagnoses, and prognosis were discussed patient's , Carly Lopez, and patient daughter, Kaylee Warren, who translated for #[phone]. They reported that patient was following at [facility] for his ALS and during recent hospitalization at [facility] they were told nothing else can be offered to patient at this time and patient was discharge home with home hospice and PO morphine. First hospice visit was on , however, patient became unresponsive yesterday and they brought in to the hospital. - Goal of care and code status were also addressed at that time. Family wants to wait for a couple days to see how patient respond to current treatment before making a decision. All questions and concerns were addressed at this time. Patient family acknowledged understanding and agreement with care plan. - Patient remains a FULL CODE status -04/05: Discussion at bedside with interpreting service with Dr. Valdivia and family state they would discuss next steps amongst themselves and let healthcare team know of decisions -04/06: extensive discussion with family ( and son) with Dr. Grayson regarding goals of care -04/08: Extensive discussion with with the use of registered nurse cardiovascular icu line regarding goals of care; no decision made. Possible consult to surgery for trach/PEG early next week. -04/09: Discussion with and her sister with Dr. Grayson and then with Dr. Pineda-> Consulted surgery for trach/peg -Plan LTAC placement, case management to arrange. -will need to stay 21 days and have 3 failed PSV trials. The high probability of a clinically significant, sudden or life threatening deterioration of the [multiple] system(s) required my full and direct attention, intervention and personal management. The aggregate critical care time was [60] minutes. This time is in addition to time spent performing reported procedures but includes the following: [x] Data Review and interpretation [x] Patient assessment and monitoring of vital signs [x] Documentation [x] Medication orders and management Disposition Plan: ICU Total Time Spent with Patient (Minutes): 60 History Interval history: Patient seen and examined at the bedside. Stable on the vent, awake and tracking, dollowing simple commands, VSS. Patient failed PSV trial again this am due to episodes of apnea. Otherwise VIRGILIO overnight Hospitalist Physical - Physical exam Narrative exam: General appearance: Present: no acute distress, cachectic, other (Trach and on the vent.Awake and tracking, following simple commands) - EENT Eyes: Present: PERRL - Neck Neck: Present: normal ROM - Respiratory Respiratory effort: normal Respiratory: bilateral: rhonchi - Cardiovascular Rhythm: regular Heart Sounds: Present: S1 & S2 - Extremities Extremities: no ischemia, pulses intact, pulses symmetrical Peripheral Pulses: within normal limits - Abdominal General gastrointestinal: soft, non-distended, normal bowel sounds - Integumentary Integumentary: Present: warm, dry - Psychiatric Psychiatric: other (Trach and on the vent. Awake and tracking, following simple commands) - Neurologic Neurologic: other (Trach and on the vent. Awake and tracking, following simple commands) - Allied Health Allied health notes reviewed: nursing, case management - Constitutional Vitals: Temp Pulse Resp BP Pulse Ox 98.5 F 100 H 14 109/65 96 04/27/22 08:00 04/27/22 08:00 04/27/22 08:00 04/27/22 08:00 04/27/22 08:00 HEART Score - HEART Score Troponin: Troponin T 0.031 ng/mL (0.00-0.029) H 04/08/22 17:47 Results - Labs CBC & Chem 7: 04/26/22 04:22 04/26/22 04:22 Labs: Laboratory Last Values WBC 10.0 K/mm3 (4.5-11.0) 04/26/22 04:22 RBC 2.88 M/mm3 (3.65-5.03) L 04/26/22 04:22 Hgb 8.9 gm/dl (11.8-15.2) L 04/26/22 04:22 Hct 26.8 % (35.5-45.6) L 04/26/22 04:22 MCV 93 fl (84-94) 04/26/22 04:22 MCH 31 pg (28-32) 04/26/22 04:22 MCHC 33 % (32-34) 04/26/22 04:22 RDW 13.8 % (13.2-15.2) 04/26/22 04:22 Plt Count 376 K/mm3 (140-440) 04/26/22 04:22 Lymph % (Auto) 4.3 % (13.4-35.0) L 04/07/22 03:51 [place] % (Auto) 8.8 % (0.0-7.3) H 04/07/22 03:51 Eos % (Auto) 0.1 % (0.0-4.3) 04/07/22 03:51 Baso % (Auto) 0.2 % (0.0-1.8) 04/07/22 03:51 Lymph # (Auto) 0.6 K/mm3 (1.2-5.4) L 04/07/22 03:51 [place] # (Auto) 1.3 K/mm3 (0.0-0.8) H 04/07/22 03:51 Eos # (Auto) 0.0 K/mm3 (0.0-0.4) 04/07/22 03:51 Baso # (Auto) 0.0 K/mm3 (0.0-0.1) 04/07/22 03:51 Add Manual Diff Complete 04/02/22 19:39 Total Counted 100 04/02/22 19:39 Seg Neutrophils % 86.6 % (40.0-70.0) H 04/07/22 03:51 Seg Neuts % (Manual) 94.0 % (40.0-70.0) H 04/02/22 19:39 Band Neutrophils % 0 % 04/02/22 19:39 Lymphocytes % (Manual) 1.0 % (13.4-35.0) L 04/02/22 19:39 Reactive Lymphs % (Man) 0 % 04/02/22 19:39 Monocytes % (Manual) 5.0 % (0.0-7.3) 04/02/22 19:39 Eosinophils % (Manual) 0 % (0.0-4.3) 04/02/22 19:39 Basophils % (Manual) 0 % (0.0-1.8) 04/02/22 19:39 Metamyelocytes % 0 % 04/02/22 19:39 Myelocytes % 0 % 04/02/22 19:39 Promyelocytes % 0 % 04/02/22 19:39 Blast Cells % 0 % 04/02/22 19:39 Nucleated RBC % Not Reportable 04/02/22 19:39 Seg Neutrophils # 12.7 K/mm3 (1.8-7.7) H 04/07/22 03:51 Seg Neutrophils # Man 13.4 K/mm3 (1.8-7.7) H 04/02/22 19:39 Band Neutrophils # 0.0 K/mm3 04/02/22 19:39 Lymphocytes # (Manual) 0.1 K/mm3 (1.2-5.4) L 04/02/22 19:39 Abs React Lymphs (Man) 0.0 K/mm3 04/02/22 19:39 Monocytes # (Manual) 0.7 K/mm3 (0.0-0.8) 04/02/22 19:39 Eosinophils # (Manual) 0.0 K/mm3 (0.0-0.4) 04/02/22 19:39 Basophils # (Manual) 0.0 K/mm3 (0.0-0.1) 04/02/22 19:39 Metamyelocytes # 0.0 K/mm3 04/02/22 19:39 Myelocytes # 0.0 K/mm3 04/02/22 19:39 Promyelocytes # 0.0 K/mm3 04/02/22 19:39 Blast Cells # 0.0 K/mm3 04/02/22 19:39 WBC Morphology Not Reportable 04/02/22 19:39 Hypersegmented Neuts Not Reportable 04/02/22 19:39 Hyposegmented Neuts Not Reportable 04/02/22 19:39 Hypogranular Neuts Not Reportable 04/02/22 19:39 Smudge Cells Not Reportable 04/02/22 19:39 Toxic Granulation Not Reportable 04/02/22 19:39 Toxic Vacuolation Not Reportable 04/02/22 19:39 Dohle Bodies Not Reportable 04/02/22 19:39 Pelger-Huet Anomaly Not Reportable 04/02/22 19:39 Terry Rods Not Reportable 04/02/22 19:39 Platelet Estimate Consistent w auto 04/02/22 19:39 Clumped Platelets Not Reportable 04/02/22 19:39 Plt Clumps, EDTA Not Reportable 04/02/22 19:39 Large Platelets Not Reportable 04/02/22 19:39 Giant Platelets Not Reportable 04/02/22 19:39 Platelet Satelliting Not Reportable 04/02/22 19:39 Plt Morphology Comment Not Reportable 04/02/22 19:39 RBC Morphology Not Reportable 04/02/22 19:39 Dimorphic RBCs Not Reportable 04/02/22 19:39 Polychromasia Not Reportable 04/02/22 19:39 Hypochromasia Not Reportable 04/02/22 19:39 Poikilocytosis Not Reportable 04/02/22 19:39 Anisocytosis 1+ 04/02/22 19:39 Microcytosis Not Reportable 04/02/22 19:39 Macrocytosis Not Reportable 04/02/22 19:39 Spherocytes Not Reportable 04/02/22 19:39 Pappenheimer Bodies Not Reportable 04/02/22 19:39 Sickle Cells Not Reportable 04/02/22 19:39 Target Cells Not Reportable 04/02/22 19:39 Tear Drop Cells Not Reportable 04/02/22 19:39 Ovalocytes Not Reportable 04/02/22 19:39 Helmet Cells Not Reportable 04/02/22 19:39 [place] Bodies Not Reportable 04/02/22 19:39 [place] Rings Not Reportable 04/02/22 19:39 [place] Cells Not Reportable 04/02/22 19:39 Bite Cells Not Reportable 04/02/22 19:39 Crenated Cell Not Reportable 04/02/22 19:39 Elliptocytes Not Reportable 04/02/22 19:39 Acanthocytes (Spur) Not Reportable 04/02/22 19:39 Rouleaux Not Reportable 04/02/22 19:39 Hemoglobin C Crystals Not Reportable 04/02/22 19:39 Schistocytes Not Reportable 04/02/22 19:39 Malaria parasites Not Reportable 04/02/22 19:39 [place] Bodies Not Reportable 04/02/22 19:39 Hem Pathologist Commnt No 04/02/22 19:39 PT 13.6 Sec. (12.2-14.9) 04/13/22 04:30 INR 0.94 (0.87-1.13) 04/13/22 04:30 APTT 35.7 Sec. (24.2-36.6) 04/07/22 03:51 ABG pH 7.457 pH Units (7.350-7.450) H 04/25/22 09:00 ABG pCO2 61.7 mm Hg 04/25/22 09:00 ABG pO2 66.7 mm Hg (80.0-90.0) L 04/25/22 09:00 ABG HCO3 42.6 mmol/L (20.0-26.0) H 04/25/22 09:00 ABG O2 Saturation 95.7 % (95.0-99.0) 04/25/22 09:00 ABG O2 Content 20.0 (0.0-44) 04/25/22 09:00 ABG Base Excess 15.3 mmol/L (-2.0-3.0) H 04/25/22 09:00 ABG Hemoglobin 8.8 gm/dl (14.0-18.0) L 04/25/22 09:00 ABG Carboxyhemoglobin 1.3 % (0.0-5.0) 04/25/22 09:00 ABG Methemoglobin 0.4 % (0.0-1.5) 04/25/22 09:00 Oxyhemoglobin 94.1 % (95.0-99.0) L 04/25/22 09:00 FiO2 35 % 04/25/22 09:00 Sodium 137 mmol/L (137-145) 04/26/22 04:22 Potassium 4.3 mmol/L (3.6-5.0) 04/26/22 04:22 Chloride 93.2 mmol/L (98-107) L 04/26/22 04:22 Carbon Dioxide 37 mmol/L (22-30) H 04/26/22 04:22 Anion Gap 11 mmol/L 04/26/22 04:22 BUN 16 mg/dL (9-20) 04/26/22 04:22 Creatinine < 0.2 mg/dL (0.8-1.3) L 04/26/22 04:22 Estimated GFR > 60 ml/min 04/26/22 04:22 BUN/Creatinine Ratio 80 % 04/26/22 04:22 Glucose 114 mg/dL (75-100) H 04/26/22 04:22 POC Glucose 128 mg/dL (70-105) H 04/20/22 11:40 Lactic Acid 1.90 mmol/L (0.7-2.0) 04/02/22 19:39 Calcium 8.5 mg/dL (8.4-10.2) 04/26/22 04:22 Phosphorus 3.60 mg/dL (2.5-4.5) 04/26/22 04:22 Magnesium 1.90 mg/dL (1.7-2.3) 04/26/22 04:22 Total Bilirubin 0.80 mg/dL (0.1-1.2) 04/02/22 19:39 AST 15 units/L (5-40) 04/02/22 19:39 ALT 9 units/L (7-56) 04/02/22 19:39 Alkaline Phosphatase 43 units/L (35-129) 04/02/22 19:39 Total Creatine Kinase 46 units/L (55-170) L 04/08/22 17:47 CK-MB (CK-2) 2.6 ng/mL (0.0-4.0) 04/08/22 17:47 CK-MB (CK-2) Rel Index 5.6 (0-4) H 04/08/22 17:47 Troponin T 0.031 ng/mL (0.00-0.029) H 04/08/22 17:47 C-Reactive Protein 31.60 mg/dL (0.00-1.30) H 04/04/22 04:18 Total Protein 4.6 g/dL (6.3-8.2) L 04/02/22 19:39 Albumin 2.7 g/dL (3.9-5) L 04/02/22 19:39 Albumin/Globulin Ratio 1.4 % 04/02/22 19:39 Triglycerides 80 mg/dL (2-149) 04/02/22 19:39 Cholesterol 94 mg/dL (50-199) 04/02/22 19:39 LDL Cholesterol Direct 27 mg/dL (50-130) L 04/02/22 19:39 HDL Cholesterol 47 mg/dL (40-59) 04/02/22 19:39 Cholesterol/HDL Ratio 2.00 % 04/02/22 19:39 Procalcitonin 0.08 ng/mL (<0.15) 04/04/22 04:18 Urine Color Aracely (Yellow) 04/05/22 17:45 Urine Turbidity Cloudy (Clear) 04/05/22 17:45 Urine pH 5.0 (5.0-7.0) 04/05/22 17:45 Ur Specific [place] 1.021 (1.003-1.030) 04/05/22 17:45 Urine Protein 30 mg/dl mg/dL (Negative) 04/05/22 17:45 Urine Glucose (UA) Neg mg/dL (Negative) 04/05/22 17:45 Urine Ketones Tr mg/dL (Negative) 04/05/22 17:45 Urine Blood Sm (Negative) 04/05/22 17:45 Urine Nitrite Neg (Negative) 04/05/22 17:45 Urine Bilirubin Neg (Negative) 04/05/22 17:45 Urine Urobilinogen < 2.0 mg/dL (<2.0) 04/05/22 17:45 Ur Leukocyte Esterase Tr (Negative) 04/05/22 17:45 Urine WBC (Auto) 8.0 /HPF (0.0-6.0) H 04/05/22 17:45 Urine RBC (Auto) 3.0 /HPF (0.0-6.0) 04/05/22 17:45 U Epithel Cells (Auto) 2.0 /HPF (0-13.0) 04/05/22 17:45 Urine Bacteria (Auto) 1+ /HPF (Negative) 04/02/22 Unknown Hyaline Casts 1 /LPF 04/05/22 17:45 Urine Mucus 3+ /HPF 04/05/22 17:45 Nasal Screen MRSA (PCR) Negative (Negative) 04/05/22 12:37 Vancomycin Trough 6.0 ug/mL (5.0-20.0) 04/05/22 18:53 Coronavirus (PCR) Negative (Negative) 04/07/22 14:52 Perez/IV: Voiding Method Condom Catheter Active Medications - Current Medications Current Medications: Generic Name Dose Route Start Last Admin Trade Name Freq PRN Reason Stop Dose Admin Acetaminophen 650 mg 04/02/22 23:53 04/21/22 16:23 Acetaminophen 325 Mg Tab PO 650 mg Q6H PRN Administration Pain MILD(1-3)/Fever >100.5/FAITH Acetylcysteine 200 mg 04/21/22 16:00 04/27/22 07:23 Acetylcysteine 20% 200 Mg/1 Ml *For Inhalation Use* INHALATION 200 mg Q8HRT SEGUNDO Administration Albuterol 2.5 mg 04/06/22 16:00 04/27/22 07:23 Albuterol 2.5 Mg/3 Ml Nebu IH 2.5 mg Q8HRT SEGUNDO Administration Bisacodyl 10 mg 04/07/22 09:44 04/12/22 10:06 Bisacodyl 10 Mg Rect Supp NV 10 mg QDAY PRN Administration Constipation Dextrose 50 ml 04/06/22 17:54 Dextrose 50% In Water (25gm) 50 Ml Syringe IV Q30MIN PRN Hypoglycemia Protocol Docusate Sodium 100 mg 04/03/22 15:00 04/27/22 09:25 Docusate Sodium 100 Mg/10 Ml Oral Liqd PO 100 mg BID SEGUNDO Administration Famotidine 20 mg 04/06/22 10:00 04/27/22 09:25 Famotidine 20 Mg Tab FEEDTUBE 20 mg BID SEGUNDO Administration Fentanyl 50 mcg 04/04/22 15:56 04/23/22 17:00 Fentanyl 100 Mcg/2 Ml Inj IV 50 mcg Q2HR PRN Administration For CPOT of greater than 3 Heparin Sodium (Porcine) 5,000 unit 04/03/22 06:00 04/27/22 05:05 Heparin 5,000 Unit/1 Ml Vial SUB-Q 5,000 unit Q8HR SEGUNDO Administration Insulin Human Regular 0 units 04/06/22 18:00 04/27/22 05:22 Insulin Regular, Human 100 Units/1 Ml SUB-Q Not Given Q6H [facility] Protocol Magnesium Hydroxide 30 ml 04/02/22 23:53 Magnesium Hydroxide (Mom) Oral Liqd Udc PO Q4H PRN Constipation Metoprolol Tartrate 25 mg 04/16/22 18:00 04/27/22 05:05 Metoprolol Tartrate 25 Mg Tab FEEDTUBE 25 mg Q6HR SEGUNDO Administration Ondansetron HCl 4 mg 04/02/22 23:53 Ondansetron 4 Mg/2 Ml Inj IV Q8H PRN Nausea And Vomiting Polyethylene Glycol 17 gm 04/08/22 10:00 04/27/22 09:25 Polyethylene Glycol 3350 17 Gm Powder PO 17 gm QDAY SEGUNDO Administration Quetiapine Fumarate 50 mg 04/22/22 10:00 04/27/22 09:25 Quetiapine 25 Mg Tab PO 50 mg BID SEGUNDO Administration Senna 17.6 mg 04/03/22 22:00 04/27/22 09:25 Sennosides Oral Liqd 8.8 Mg/5 Ml Oral Liqd PO 17.6 mg Q12HR SEGUNDO Administration Sodium Chloride 10 ml 04/03/22 10:00 04/27/22 09:26 Sodium Chloride 0.9% 10 Ml Flush Syringe IV 10 ml BID SEGUNDO Administration Sodium Chloride 10 ml 04/02/22 23:53 Sodium Chloride 0.9% 10 Ml Flush Syringe IV PRN PRN LINE FLUSH Nutrition/Malnutrition Assess - Dietary Evaluation Nutrition/Malnutrition Findings: Nutrition Notes Start: 04/04/22 1 3:13 Freq: Status: Active Protocol: Document 04/20/22 11:36 COLLEEN (Rec: 04/20/22 12:00 COLLEEN [email or web address]) Nutrition Notes Initial or Follow up Reassessment Current Diagnosis Coronary Artery Disease, Respiratory Failure, Malnutrition Other Pertinent Diagnosis HCAP, HFpEF, ALS, Pleural Effusion, R-Lung Collapse, Hypotension, ... Current Diet TF-Vital AF 1.2 Inderjit @ 50 ml/hr (since D 04/15). Labs/Tests 04/19: Cl 96.2, CO2 40, BUN 24 , Crea <0.2, Glu 125, Ca 8.3. Pertinent Medications 04/20: Nutritionally unremarkable. Height 5 ft 4.8 in Weight 46.8 kg [place] Body Weight (kg) 61.27 BMI 17.2 Weight change and time frame No body weight change reported in 2 weeks. Weight Status Underweight Subjective/Other Information RD consult for routine F/U on TF tolerance/continuation. TF continues as prescribed, and well tolerated, according to RN notes. RN note on 04/20/22 06:13: No acute changes throughout night . Trach intact to vent, with Fi02 @ 55%. Peg intact with patient tolerating tube feedings as ordered. Vitals stable. Currently 93/53, 93, 14, 95%. Pt continues on Mechanical ventilation, O2 saturation @ 96%, according to Physical Assessment Histroy notes. Pt presents constipation, according to Physical Assessment Histroy notes. Tracheostomy and PEG tube placement on 04/15, well tolerated, according to Progress notes. LTAC placement still pending. Percent of energy/protein needs met: Prescribed TF-Vital AF 1.2 Inderjit @ 50 ml/hr provides for energy/protein needs (1,450 Kcal/91 g) during LOS, 98% Kcal; 100% AA. Burn Absent Trauma Absent GI Symptoms Constipation Difficulty In Swallowing,Chewing Food Allergy No Skin Integrity/Comment Sacral open wound. Current % PO Other Minimum of two criteria No #1 Nutrition Diagnosis Inadequate oral intake Diagnosis Progress(for reassessment Continues documentation) Is patient on ventilator? Yes Is Patient Ambulatory and/or Out of Bed No [facility].74 [facility]culation [facility] Additional Notes Protein: 1.2-2 g/Kg IBW; 73- 122 g/day. Fluids: 1 ml/Kcal, or as per MD. Nutrition Intervention Nutrition Support: Continue TF-Vital AF 1.2 Inderjit @ 50 ml/hr. Flush: 80 ml water Q 4 hr, or as per MD. Kcal 1,450 Protein (gm) 91 Carbohydrates (gm) 134 Fat (gm) 65 Fluid (mL) 980 Fiber (gm) 6 % RDI: 98% Kcal; 100% AA. Goal #1 Provide at least 75% of energy /protein needs through Enteral Feeding during LOS. Follow-Up By: 04/27/22 Additional Comments Continue monitoring TF tolerance and BM. <DIXIE BROWN E - Last Filed: 04/28/22 07:09> Assessment and Plan Assessment and plan: I saw and evaluated the patient. I agree with the findings and the plan of care as documented in the Nurse Practitioner's~note, with the following corrections and additions. Hospitalist Physical - Constitutional Vitals: Temp Pulse Resp BP Pulse Ox 98.8 F 100 H 20 119/77 98 04/28/22 04:00 04/28/22 06:00 04/28/22 06:00 04/28/22 06:00 04/28/22 06:00 HEART Score - HEART Score Troponin: Troponin T 0.031 ng/mL (0.00-0.029) H 04/08/22 17:47 Results - Labs CBC & Chem 7: 04/26/22 04:22 04/26/22 04:22 Labs: Laboratory Last Values WBC 10.0 K/mm3 (4.5-11.0) 04/26/22 04:22 RBC 2.88 M/mm3 (3.65-5.03) L 04/26/22 04:22 Hgb 8.9 gm/dl (11.8-15.2) L 04/26/22 04:22 Hct 26.8 % (35.5-45.6) L 04/26/22 04:22 MCV 93 fl (84-94) 04/26/22 04:22 MCH 31 pg (28-32) 04/26/22 04:22 MCHC 33 % (32-34) 04/26/22 04:22 RDW 13.8 % (13.2-15.2) 04/26/22 04:22 Plt Count 376 K/mm3 (140-440) 04/26/22 04:22 Lymph % (Auto) 4.3 % (13.4-35.0) L 04/07/22 03:51 [place] % (Auto) 8.8 % (0.0-7.3) H 04/07/22 03:51 Eos % (Auto) 0.1 % (0.0-4.3) 04/07/22 03:51 Baso % (Auto) 0.2 % (0.0-1.8) 04/07/22 03:51 Lymph # (Auto) 0.6 K/mm3 (1.2-5.4) L 04/07/22 03:51 [place] # (Auto) 1.3 K/mm3 (0.0-0.8) H 04/07/22 03:51 Eos # (Auto) 0.0 K/mm3 (0.0-0.4) 04/07/22 03:51 Baso # (Auto) 0.0 K/mm3 (0.0-0.1) 04/07/22 03:51 Add Manual Diff Complete 04/02/22 19:39 Total Counted 100 04/02/22 19:39 Seg Neutrophils % 86.6 % (40.0-70.0) H 04/07/22 03:51 Seg Neuts % (Manual) 94.0 % (40.0-70.0) H 04/02/22 19:39 Band Neutrophils % 0 % 04/02/22 19:39 Lymphocytes % (Manual) 1.0 % (13.4-35.0) L 04/02/22 19:39 Reactive Lymphs % (Man) 0 % 04/02/22 19:39 Monocytes % (Manual) 5.0 % (0.0-7.3) 04/02/22 19:39 Eosinophils % (Manual) 0 % (0.0-4.3) 04/02/22 19:39 Basophils % (Manual) 0 % (0.0-1.8) 04/02/22 19:39 Metamyelocytes % 0 % 04/02/22 19:39 Myelocytes % 0 % 04/02/22 19:39 Promyelocytes % 0 % 04/02/22 19:39 Blast Cells % 0 % 04/02/22 19:39 Nucleated RBC % Not Reportable 04/02/22 19:39 Seg Neutrophils # 12.7 K/mm3 (1.8-7.7) H 04/07/22 03:51 Seg Neutrophils # Man 13.4 K/mm3 (1.8-7.7) H 04/02/22 19:39 Band Neutrophils # 0.0 K/mm3 04/02/22 19:39 Lymphocytes # (Manual) 0.1 K/mm3 (1.2-5.4) L 04/02/22 19:39 Abs React Lymphs (Man) 0.0 K/mm3 04/02/22 19:39 Monocytes # (Manual) 0.7 K/mm3 (0.0-0.8) 04/02/22 19:39 Eosinophils # (Manual) 0.0 K/mm3 (0.0-0.4) 04/02/22 19:39 Basophils # (Manual) 0.0 K/mm3 (0.0-0.1) 04/02/22 19:39 Metamyelocytes # 0.0 K/mm3 04/02/22 19:39 Myelocytes # 0.0 K/mm3 04/02/22 19:39 Promyelocytes # 0.0 K/mm3 04/02/22 19:39 Blast Cells # 0.0 K/mm3 04/02/22 19:39 WBC Morphology Not Reportable 04/02/22 19:39 Hypersegmented Neuts Not Reportable 04/02/22 19:39 Hyposegmented Neuts Not Reportable 04/02/22 19:39 Hypogranular Neuts Not Reportable 04/02/22 19:39 Smudge Cells Not Reportable 04/02/22 19:39 Toxic Granulation Not Reportable 04/02/22 19:39 Toxic Vacuolation Not Reportable 04/02/22 19:39 Dohle Bodies Not Reportable 04/02/22 19:39 Pelger-Huet Anomaly Not Reportable 04/02/22 19:39 Terry Rods Not Reportable 04/02/22 19:39 Platelet Estimate Consistent w auto 04/02/22 19:39 Clumped Platelets Not Reportable 04/02/22 19:39 Plt Clumps, EDTA Not Reportable 04/02/22 19:39 Large Platelets Not Reportable 04/02/22 19:39 Giant Platelets Not Reportable 04/02/22 19:39 Platelet Satelliting Not Reportable 04/02/22 19:39 Plt Morphology Comment Not Reportable 04/02/22 19:39 RBC Morphology Not Reportable 04/02/22 19:39 Dimorphic RBCs Not Reportable 04/02/22 19:39 Polychromasia Not Reportable 04/02/22 19:39 Hypochromasia Not Reportable 04/02/22 19:39 Poikilocytosis Not Reportable 04/02/22 19:39 Anisocytosis 1+ 04/02/22 19:39 Microcytosis Not Reportable 04/02/22 19:39 Macrocytosis Not Reportable 04/02/22 19:39 Spherocytes Not Reportable 04/02/22 19:39 Pappenheimer Bodies Not Reportable 04/02/22 19:39 Sickle Cells Not Reportable 04/02/22 19:39 Target Cells Not Reportable 04/02/22 19:39 Tear Drop Cells Not Reportable 04/02/22 19:39 Ovalocytes Not Reportable 04/02/22 19:39 Helmet Cells Not Reportable 04/02/22 19:39 [place] Bodies Not Reportable 04/02/22 19:39 [place] Rings Not Reportable 04/02/22 19:39 [place] Cells Not Reportable 04/02/22 19:39 Bite Cells Not Reportable 04/02/22 19:39 Crenated Cell Not Reportable 04/02/22 19:39 Elliptocytes Not Reportable 04/02/22 19:39 Acanthocytes (Spur) Not Reportable 04/02/22 19:39 Rouleaux Not Reportable 04/02/22 19:39 Hemoglobin C Crystals Not Reportable 04/02/22 19:39 Schistocytes Not Reportable 04/02/22 19:39 Malaria parasites Not Reportable 04/02/22 19:39 [place] Bodies Not Reportable 04/02/22 19:39 Hem Pathologist Commnt No 04/02/22 19:39 PT 13.6 Sec. (12.2-14.9) 04/13/22 04:30 INR 0.94 (0.87-1.13) 04/13/22 04:30 APTT 35.7 Sec. (24.2-36.6) 04/07/22 03:51 ABG pH 7.457 pH Units (7.350-7.450) H 04/25/22 09:00 ABG pCO2 61.7 mm Hg 04/25/22 09:00 ABG pO2 66.7 mm Hg (80.0-90.0) L 04/25/22 09:00 ABG HCO3 42.6 mmol/L (20.0-26.0) H 04/25/22 09:00 ABG O2 Saturation 95.7 % (95.0-99.0) 04/25/22 09:00 ABG O2 Content 20.0 (0.0-44) 04/25/22 09:00 ABG Base Excess 15.3 mmol/L (-2.0-3.0) H 04/25/22 09:00 ABG Hemoglobin 8.8 gm/dl (14.0-18.0) L 04/25/22 09:00 ABG Carboxyhemoglobin 1.3 % (0.0-5.0) 04/25/22 09:00 ABG Methemoglobin 0.4 % (0.0-1.5) 04/25/22 09:00 Oxyhemoglobin 94.1 % (95.0-99.0) L 04/25/22 09:00 FiO2 35 % 04/25/22 09:00 Sodium 137 mmol/L (137-145) 04/26/22 04:22 Potassium 4.3 mmol/L (3.6-5.0) 04/26/22 04:22 Chloride 93.2 mmol/L (98-107) L 04/26/22 04:22 Carbon Dioxide 37 mmol/L (22-30) H 04/26/22 04:22 Anion Gap 11 mmol/L 04/26/22 04:22 BUN 16 mg/dL (9-20) 04/26/22 04:22 Creatinine < 0.2 mg/dL (0.8-1.3) L 04/26/22 04:22 Estimated GFR > 60 ml/min 04/26/22 04:22 BUN/Creatinine Ratio 80 % 04/26/22 04:22 Glucose 114 mg/dL (75-100) H 04/26/22 04:22 POC Glucose 128 mg/dL (70-105) H 04/20/22 11:40 Lactic Acid 1.90 mmol/L (0.7-2.0) 04/02/22 19:39 Calcium 8.5 mg/dL (8.4-10.2) 04/26/22 04:22 Phosphorus 3.60 mg/dL (2.5-4.5) 04/26/22 04:22 Magnesium 1.90 mg/dL (1.7-2.3) 04/26/22 04:22 Total Bilirubin 0.80 mg/dL (0.1-1.2) 04/02/22 19:39 AST 15 units/L (5-40) 04/02/22 19:39 ALT 9 units/L (7-56) 04/02/22 19:39 Alkaline Phosphatase 43 units/L (35-129) 04/02/22 19:39 Total Creatine Kinase 46 units/L (55-170) L 04/08/22 17:47 CK-MB (CK-2) 2.6 ng/mL (0.0-4.0) 04/08/22 17:47 CK-MB (CK-2) Rel Index 5.6 (0-4) H 04/08/22 17:47 Troponin T 0.031 ng/mL (0.00-0.029) H 04/08/22 17:47 C-Reactive Protein 31.60 mg/dL (0.00-1.30) H 04/04/22 04:18 Total Protein 4.6 g/dL (6.3-8.2) L 04/02/22 19:39 Albumin 2.7 g/dL (3.9-5) L 04/02/22 19:39 Albumin/Globulin Ratio 1.4 % 04/02/22 19:39 Triglycerides 80 mg/dL (2-149) 04/02/22 19:39 Cholesterol 94 mg/dL (50-199) 04/02/22 19:39 LDL Cholesterol Direct 27 mg/dL (50-130) L 04/02/22 19:39 HDL Cholesterol 47 mg/dL (40-59) 04/02/22 19:39 Cholesterol/HDL Ratio 2.00 % 04/02/22 19:39 Procalcitonin 0.08 ng/mL (<0.15) 04/04/22 04:18 Urine Color Aracely (Yellow) 04/05/22 17:45 Urine Turbidity Cloudy (Clear) 04/05/22 17:45 Urine pH 5.0 (5.0-7.0) 04/05/22 17:45 Ur Specific [place] 1.021 (1.003-1.030) 04/05/22 17:45 Urine Protein 30 mg/dl mg/dL (Negative) 04/05/22 17:45 Urine Glucose (UA) Neg mg/dL (Negative) 04/05/22 17:45 Urine Ketones Tr mg/dL (Negative) 04/05/22 17:45 Urine Blood Sm (Negative) 04/05/22 17:45 Urine Nitrite Neg (Negative) 04/05/22 17:45 Urine Bilirubin Neg (Negative) 04/05/22 17:45 Urine Urobilinogen < 2.0 mg/dL (<2.0) 04/05/22 17:45 Ur Leukocyte Esterase Tr (Negative) 04/05/22 17:45 Urine WBC (Auto) 8.0 /HPF (0.0-6.0) H 04/05/22 17:45 Urine RBC (Auto) 3.0 /HPF (0.0-6.0) 04/05/22 17:45 U Epithel Cells (Auto) 2.0 /HPF (0-13.0) 04/05/22 17:45 Urine Bacteria (Auto) 1+ /HPF (Negative) 04/02/22 Unknown Hyaline Casts 1 /LPF 04/05/22 17:45 Urine Mucus 3+ /HPF 04/05/22 17:45 Nasal Screen MRSA (PCR) Negative (Negative) 04/05/22 12:37 Vancomycin Trough 6.0 ug/mL (5.0-20.0) 04/05/22 18:53 Coronavirus (PCR) Negative (Negative) 04/07/22 14:52 Perez/IV: Voiding Method Condom Catheter Active Medications - Current Medications Current Medications: Generic Name Dose Route Start Last Admin Trade Name Freq PRN Reason Stop Dose Admin Acetaminophen 650 mg 04/02/22 23:53 04/21/22 16:23 Acetaminophen 325 Mg Tab PO 650 mg Q6H PRN Administration Pain MILD(1-3)/Fever >100.5/FAITH Acetylcysteine 200 mg 04/21/22 16:00 04/28/22 03:24 Acetylcysteine 20% 200 Mg/1 Ml *For Inhalation Use* INHALATION 200 mg Q8HRT SEGUNDO Administration Albuterol 2.5 mg 04/06/22 16:00 04/28/22 03:22 Albuterol 2.5 Mg/3 Ml Nebu IH 2.5 mg Q8HRT SEGUNDO Administration Bisacodyl 10 mg 04/07/22 09:44 04/12/22 10:06 Bisacodyl 10 Mg Rect Supp NV 10 mg QDAY PRN Administration Constipation Dextrose 50 ml 04/06/22 17:54 Dextrose 50% In Water (25gm) 50 Ml Syringe IV Q30MIN PRN Hypoglycemia Protocol Docusate Sodium 100 mg 04/03/22 15:00 04/27/22 21:53 Docusate Sodium 100 Mg/10 Ml Oral Liqd PO 100 mg BID SEGUNDO Administration Famotidine 20 mg 04/06/22 10:00 04/27/22 21:54 Famotidine 20 Mg Tab FEEDTUBE 20 mg BID SEGUNDO Administration Fentanyl 50 mcg 04/04/22 15:56 04/23/22 17:00 Fentanyl 100 Mcg/2 Ml Inj IV 50 mcg Q2HR PRN Administration For CPOT of greater than 3 Heparin Sodium (Porcine) 5,000 unit 04/03/22 06:00 04/28/22 05:55 Heparin 5,000 Unit/1 Ml Vial SUB-Q 5,000 unit Q8HR SEGUNDO Administration Insulin Human Regular 0 units 04/06/22 18:00 04/28/22 06:06 Insulin Regular, Human 100 Units/1 Ml SUB-Q Not Given Q6H [facility] Protocol Magnesium Hydroxide 30 ml 04/02/22 23:53 Magnesium Hydroxide (Mom) Oral Liqd Udc PO Q4H PRN Constipation Metoprolol Tartrate 25 mg 04/16/22 18:00 04/28/22 05:55 Metoprolol Tartrate 25 Mg Tab FEEDTUBE 25 mg Q6HR SEGUNDO Administration Ondansetron HCl 4 mg 04/02/22 23:53 Ondansetron 4 Mg/2 Ml Inj IV Q8H PRN Nausea And Vomiting Polyethylene Glycol 17 gm 04/08/22 10:00 04/27/22 09:25 Polyethylene Glycol 3350 17 Gm Powder PO 17 gm QDAY SEGUNDO Administration Quetiapine Fumarate 50 mg 04/22/22 10:00 04/27/22 21:53 Quetiapine 25 Mg Tab PO 50 mg BID SEGUNDO Administration Senna 17.6 mg 04/03/22 22:00 04/27/22 21:53 Sennosides Oral Liqd 8.8 Mg/5 Ml Oral Liqd PO 17.6 mg Q12HR SEGUNDO Administration Sodium Chloride 10 ml 04/03/22 10:00 04/27/22 21:59 Sodium Chloride 0.9% 10 Ml Flush Syringe IV 10 ml BID SEGUNDO Administration Sodium Chloride 10 ml 04/02/22 23:53 Sodium Chloride 0.9% 10 Ml Flush Syringe IV PRN PRN LINE FLUSH Nutrition/Malnutrition Assess - Dietary Evaluation Nutrition/Malnutrition Findings: Nutrition Notes Start: 04/04/22 13:13 Freq: Status: Active Protocol: Document 04/27/22 11:53 COLLEEN (Rec: 04/27/22 12:21 COLLEEN [id number]) Nutrition Notes Initial or Follow up Reassessment Current Diagnosis Coronary Artery Disease, Decubitus(Pressure Ulcer), Sepsis,Respiratory Failure, Malnutrition Other Pertinent Diagnosis HCAP, HFpEF, ALS, Pleural Effusion, R-Lung Collapse, .. . Current Diet TF-Vital AF 1.2 Inderjit @ 50 ml/hr (since D 04/15). Labs/Tests 04/27: Cl 93.2, CO2 37, Crea < 0.2, Glu 114. Pertinent Medications 04/27: Nutritionally unremarkable. Height 5 ft 4.8 in Weight 46.8 kg [place] Body Weight (kg) 61.27 BMI 17.2 Weight change and time frame No body weight change reported in 3 weeks. Weight Status Underweight Subjective/Other Information RD consult for routine F/U on TF tolerance/continuation. TF continues as prescribed, and well tolerated, according to RN notes. Pt continues on Mechanical ventilation, O2 saturation @ 96%, according to Physical Assessment Histroy notes. Pt continues to present constipation, according to Physical Assessment Histroy notes. 3 failed attempts to wean Pt from Mechanical Ventilation, Pt is back to previous settings in [facility], according to RN notes. Pt is pending authorization for LTAC placement, according to Progress notes. Percent of energy/protein needs met: Prescribed TF-Vital AF 1.2 Inderjit @ 50 ml/hr provides for energy/protein needs (1,450 Kcal/91 g) during LOS, 98% Kcal; 100% AA. Burn Absent Trauma Absent GI Symptoms Constipation Difficulty In Swallowing,Chewing Food Allergy No Skin Integrity/Comment Sacral open wound. Current % PO Other Minimum of two criteria No #1 Nutrition Diagnosis Inadequate oral intake Diagnosis Progress(for reassessment Continues documentation) Is patient on ventilator? Yes Is Patient Ambulatory and/or Out of Bed No REE-([facility]-confined to bed) 1470.042 Calculation Used for Recommendations [facility] Additional Notes Protein: 1.2-2 g/Kg IBW; 73- 122 g/day. Fluids: 1 ml/Kcal, or as per MD. Nutrition Intervention Nutrition Support: Continue TF-Vital AF 1.2 Inderjit @ 50 ml/hr. Flush: 80 ml water Q 4 hr, or as per MD. Kcal 1,450 Protein (gm) 91 Carbohydrates (gm) 134 Fat (gm) 65 Fluid (mL) 980 Fiber (gm) 6 % RDI: 98% Kcal; 100% AA. Goal #1 Provide at least 75% of energy /protein needs through Enteral Feeding during LOS. Follow-Up By: 05/04/22 Additional Comments Continue monitoring TF tolerance and BM.
--- NOTE | 2022-04-27 13:03 | Progress Note ---
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 Protein calorie malnutrition Acute Bronchopneumonia HCAP Hypotension NSTEMI Hypernatremia Acute Metabolic Encephalopathy H/o Amyotrophic Lateral Sclerosis Nonverbal at Baseline Thrombocytopenia Protein Caloric Malnutrition Constipation - keep peep at 10 - care plan discussed with patient and family in room - continue care as below otherwise; - bronchoscopy if develops large volume atelectasis - continue mucomyst nebs for thick tenacious secretions - continue scheduled CPT - continue Seroquel for anxiolysis / delirium - continue bronchodilators with pulmonary hygiene per RT - Daily SAT and SBT assessment as tolerated - continue to wean supplemental oxygen for target O2 sat's > 90% acutely - VAP bundle addressed - continue lung protective strategies - wean per pulmonary driven protocols otherwise - continue accuchecks with glycemic control per SSI (While critically ill target blood glucose of 140-180 mg/dL; avoid hypoglycemia) - sedation prn for target RASS 0 to -1 - avoid nephrotoxins, renally dose all medications - continue to avoid benzodiazepine's, reduce the possibility of delirium - AB's per ID rec's - prn analgesia per CPOT score - Maintenance of sleep-wake cycle, avoid delirium - continue enteral nutritional support at goal rate as tolerated - G.I. & VTE prophylaxis - PT/OT/ROM exercises - continue mobility protocols for pressure ulcer prophylaxis - Monitor hemodynamics closely - continue other care per attending / other consultants - discharge planning ongoing concurrently COVID SPECIFIC INTERVENTIONS - test pending .... Re-evaluate in am & prn CONDITION: CRITICAL PROGNOSIS: GUARDED CODE STATUS: FULL CODE The high probability of a clinically significant, sudden or life-threatening deterioration of the [respiratory, cardiovascular & neurologic] system(s) required my full and direct attention, intervention and personal management. The aggregate critical care time was [35] minutes without overlap. Time includes spent on; [x] Data Review and interpretation [x] Patient assessment and monitoring of vital signs [x] Documentation [x] Medication orders and management Subjective Date of service: 04/27/22 Principal diagnosis: Ac and ch hypercapnic and hypoxemic Resp Failure; ALS; HCAP; Sepsis; NSTEMI Interval history: Patient is seen today for: Acute and chronic hypercapnic and hypoxemic Respiratory Failure; ALS; HCAP; Sepsis; NSTEMI; AMS; Hypernatremia; Thrombocytopenia; Protein Caloric Malnutrition; Constipation Seen and examined at bedside; 24hour events reviewed; nursing and respiratory care staff consulted; no adverse overnight events reported to me; resting peacefully in bed; remains on MVS; oxygenation better overall but still not tolerating SBT's Objective Vital Signs - 12hr 04/27/22 04/27/22 04/27/22 02:00 03:00 03:49 Temperature Pulse Rate 98 H 98 H 109 H Pulse Rate [ Anterior Bilateral Throughout] Respiratory 14 14 Rate Respiratory Rate [Anterior Bilateral Throughout] Blood Pressure 92/53 98/57 115/67 O2 Sat by Pulse 97 100 97 Oximetry O2 Sat by Pulse Oximetry [ Assessment] 04/27/22 04/27/22 04/27/22 04:00 05:00 05:05 Temperature 98 F Pulse Rate 109 H 109 H 109 H Pulse Rate [ Anterior Bilateral Throughout] Respiratory 14 15 Rate Respiratory Rate [Anterior Bilateral Throughout] Blood Pressure 116/61 110/61 110/61 O2 Sat by Pulse 96 96 Oximetry O2 Sat by Pulse Oximetry [ Assessment] 04/27/22 04/27/22 04/27/22 06:00 07:00 07:39 Temperature Pulse Rate 96 H 100 H 102 H Pulse Rate [ 107 H Anterior Bilateral Throughout] Respiratory 15 14 Rate Respiratory 15 Rate [Anterior Bilateral Throughout] Blood Pressure 99/65 103/65 101/73 O2 Sat by Pulse 96 96 97 Oximetry O2 Sat by Pulse 97 Oximetry [ Assessment] 04/27/22 04/27/22 08:00 11:53 Temperature 98.5 F Pulse Rate 100 H 110 H Pulse Rate [ Anterior Bilateral Throughout] Respiratory 14 Rate Respiratory Rate [Anterior Bilateral Throughout] Blood Pressure 109/65 117/71 O2 Sat by Pulse 96 100 Oximetry O2 Sat by Pulse Oximetry [ Assessment] Constitutional: alert, appears uncomfortable, other (orally intubated in bed with mildly increased respiratory effort at rest) Eyes: non-icteric ENT: oropharynx moist, other (+ midline tracheostomy) Neck: supple, no lymphadenopathy, no JVD Effort: mildly labored Ascultation: Bilateral: diminished breath sounds (bases), rhonchi Percussion: Bilateral: not dull Cardiovascular: regular rate and rhythm, other (S1,S2) Gastrointestinal: normoactive bowel sounds, soft, non-tender, non-distended Integumentary: normal Extremities: no cyanosis, no edema, pink and warm, pulses normal Neurologic: pupils equal and round, other (functional quadriplegia) Psychiatric: anxious (affect), other CBC and BMP: 05/03/22 04:02 05/03/22 04:02 ABG, PT/INR, D-dimer: ABG ABG pH 7.457 pH Units (7.350-7.450) H 04/25/22 09:00 ABG pCO2 61.7 mm Hg 04/25/22 09:00 ABG pO2 66.7 mm Hg (80.0-90.0) L 04/25/22 09:00 ABG O2 Saturation 95.7 % (95.0-99.0) 04/25/22 09:00 PT/INR, D-dimer PT 13.6 Sec. (12.2-14.9) 04/13/22 04:30 INR 0.94 (0.87-1.13) 04/13/22 04:30 Abnormal lab findings: Abnormal Labs 04/02/22 04/02/22 04/02/22 19:39 19:39 19:39 WBC 14.3 H RBC Hgb Hct MCV 96 H Plt Count 104 L Lymph % (Auto) [place] % (Auto) Lymph # (Auto) [place] # (Auto) Seg Neutrophils % Seg Neuts % (Manual) 94.0 H Lymphocytes % (Manual) 1.0 L Seg Neutrophils # Seg Neutrophils # Man 13.4 H Lymphocytes # (Manual) 0.1 L PT 15.9 H INR 1.14 H ABG pH ABG pO2 ABG HCO3 ABG O2 Saturation ABG Base Excess ABG Hemoglobin Oxyhemoglobin Sodium 151 H Potassium Chloride Carbon Dioxide BUN Creatinine 0.5 L Glucose POC Glucose Calcium 8.2 L Phosphorus Magnesium 1.60 L Total Creatine Kinase CK-MB (CK-2) Rel Index Troponin T 0.048 H C-Reactive Protein Total Protein 4.6 L Albumin 2.7 L LDL Cholesterol Direct 27 L Urine WBC (Auto) 04/02/22 04/03/22 04/03/22 19:42 05:14 06:30 WBC RBC Hgb Hct MCV Plt Count Lymph % (Auto) [place] % (Auto) Lymph # (Auto) [place] # (Auto) Seg Neutrophils % Seg Neuts % (Manual) Lymphocytes % (Manual) Seg Neutrophils # Seg Neutrophils # Man Lymphocytes # (Manual) PT INR ABG pH 7.471 H 7.496 H ABG pO2 47.8 L 91.0 H ABG HCO3 30.6 H ABG O2 Saturation 94.4 L ABG Base Excess 6.2 H ABG Hemoglobin 11.0 L 12.8 L Oxyhemoglobin 93.1 L Sodium 149 H Potassium 3.4 L Chloride Carbon Dioxide BUN Creatinine 0.4 L Glucose POC Glucose Calcium Phosphorus Magnesium Total Creatine Kinase CK-MB (CK-2) Rel Index Troponin T C-Reactive Protein Total Protein Albumin LDL Cholesterol Direct Urine WBC (Auto) 04/04/22 04/04/22 04/04/22 04:18 04:18 05:50 WBC 11.8 H RBC Hgb Hct MCV Plt Count 132 L Lymph % (Auto) [place] % (Auto) Lymph # (Auto) [place] # (Auto) Seg Neutrophils % Seg Neuts % (Manual) Lymphocytes % (Manual) Seg Neutrophils # Seg Neutrophils # Man Lymphocytes # (Manual) PT INR ABG pH 7.517 H ABG pO2 115.5 H ABG HCO3 29.9 H ABG O2 Saturation ABG Base Excess 6.7 H ABG Hemoglobin 12.3 L Oxyhemoglobin Sodium Potassium 3.5 L Chloride Carbon Dioxide 31 H BUN Creatinine 0.3 L Glucose 153 H POC Glucose Calcium Phosphorus 1.40 L Magnesium 1.50 L Total Creatine Kinase CK-MB (CK-2) Rel Index Troponin T C-Reactive Protein 31.60 H Total Protein Albumin LDL Cholesterol Direct Urine WBC (Auto) 04/05/22 04/05/22 04/05/22 02:50 05:25 11:28 WBC RBC Hgb Hct MCV Plt Count Lymph % (Auto) [place] % (Auto) Lymph # (Auto) [place] # (Auto) Seg Neutrophils % Seg Neuts % (Manual) Lymphocytes % (Manual) Seg Neutrophils # Seg Neutrophils # Man Lymphocytes # (Manual) PT INR ABG pH 7.455 H ABG pO2 50.7 L ABG HCO3 30.5 H ABG O2 Saturation 89.4 L ABG Base Excess 5.9 H ABG Hemoglobin 11.8 L Oxyhemoglobin 88.2 L Sodium Potassium Chloride Carbon Dioxide 32 H BUN Creatinine 0.2 L Glucose 110 H POC Glucose 124 H Calcium 7.9 L Phosphorus Magnesium Total Creatine Kinase CK-MB (CK-2) Rel Index Troponin T C-Reactive Protein Total Protein Albumin LDL Cholesterol Direct Urine WBC (Auto) 04/05/22 04/05/22 04/06/22 17:45 Unknown 04:00 WBC RBC 3.55 L Hgb 11.1 L 11.5 L Hct 33.2 L 35.1 L MCV Plt Count 113 L 114 L Lymph % (Auto) [place] % (Auto) Lymph # (Auto) [place] # (Auto) Seg Neutrophils % Seg Neuts % (Manual) Lymphocytes % (Manual) Seg Neutrophils # Seg Neutrophils # Man Lymphocytes # (Manual) PT INR ABG pH ABG pO2 ABG HCO3 ABG O2 Saturation ABG Base Excess ABG Hemoglobin Oxyhemoglobin Sodium Potassium Chloride Carbon Dioxide BUN Creatinine Glucose POC Glucose Calcium Phosphorus Magnesium Total Creatine Kinase CK-MB (CK-2) Rel Index Troponin T C-Reactive Protein Total Protein Albumin LDL Cholesterol Direct Urine WBC (Auto) 8.0 H 04/06/22 04/06/22 04/07/22 04:00 08:30 00:04 WBC RBC Hgb Hct MCV Plt Count Lymph % (Auto) [place] % (Auto) Lymph # (Auto) [place] # (Auto) Seg Neutrophils % Seg Neuts % (Manual) Lymphocytes % (Manual) Seg Neutrophils # Seg Neutrophils # Man Lymphocytes # (Manual) PT INR ABG pH ABG pO2 60.8 L ABG HCO3 30.5 H ABG O2 Saturation 93.3 L ABG Base Excess 4.9 H ABG Hemoglobin 12.4 L Oxyhemoglobin 92.1 L Sodium Potassium 3.0 L Chloride Carbon Dioxide BUN Creatinine < 0.2 L Glucose 130 H POC Glucose 117 H Calcium 8.1 L Phosphorus Magnesium Total Creatine Kinase CK-MB (CK-2) Rel Index Troponin T C-Reactive Protein Total Protein Albumin LDL Cholesterol Direct Urine WBC (Auto) 04/07/22 04/07/22 04/07/22 03:51 03:51 03:51 WBC 14.6 H RBC 3.57 L Hgb 11.1 L Hct 33.2 L MCV Plt Count 118 L Lymph % (Auto) 4.3 L [place] % (Auto) 8.8 H Lymph # (Auto) 0.6 L [place] # (Auto) 1.3 H Seg Neutrophils % 86.6 H Seg Neuts % (Manual) Lymphocytes % (Manual) Seg Neutrophils # 12.7 H Seg Neutrophils # Man Lymphocytes # (Manual) PT 15.2 H INR ABG pH ABG pO2 ABG HCO3 ABG O2 Saturation ABG Base Excess ABG Hemoglobin Oxyhemoglobin Sodium 133 L Potassium Chloride 96.0 L Carbon Dioxide 31 H BUN Creatinine 0.2 L Glucose 130 H POC Glucose Calcium 8.0 L Phosphorus Magnesium Total Creatine Kinase CK-MB (CK-2) Rel Index Troponin T C-Reactive Protein Total Protein Albumin LDL Cholesterol Direct Urine WBC (Auto) 04/07/22 04/07/22 04/08/22 04:25 09:10 04:49 WBC 16.1 H RBC 3.54 L Hgb 10.9 L Hct 33.3 L MCV Plt Count Lymph % (Auto) [place] % (Auto) Lymph # (Auto) [place] # (Auto) Seg Neutrophils % Seg Neuts % (Manual) Lymphocytes % (Manual) Seg Neutrophils # Seg Neutrophils # Man Lymphocytes # (Manual) PT INR ABG pH ABG pO2 71.0 L 63.4 L ABG HCO3 31.5 H 40.0 H ABG O2 Saturation 94.9 L ABG Base Excess 5.9 H 13.6 H ABG Hemoglobin 11.3 L 9.0 L Oxyhemoglobin 93.6 L Sodium Potassium Chloride Carbon Dioxide BUN Creatinine Glucose POC Glucose Calcium Phosphorus Magnesium Total Creatine Kinase CK-MB (CK-2) Rel Index Troponin T C-Reactive Protein Total Protein Albumin LDL Cholesterol Direct Urine WBC (Auto) 04/08/22 04/08/22 04/08/22 04:49 09:53 10:25 WBC RBC Hgb Hct MCV Plt Count Lymph % (Auto) [place] % (Auto) Lymph # (Auto) [place] # (Auto) Seg Neutrophils % Seg Neuts % (Manual) Lymphocytes % (Manual) Seg Neutrophils # Seg Neutrophils # Man Lymphocytes # (Manual) PT INR ABG pH ABG pO2 ABG HCO3 34.7 H ABG O2 Saturation ABG Base Excess 7.9 H ABG Hemoglobin 11.0 L Oxyhemoglobin Sodium 136 L Potassium Chloride 97.7 L Carbon Dioxide 33 H BUN Creatinine 0.2 L Glucose 155 H POC Glucose Calcium Phosphorus Magnesium Total Creatine Kinase CK-MB (CK-2) Rel Index Troponin T 0.030 H C-Reactive Protein Total Protein Albumin LDL Cholesterol Direct Urine WBC (Auto) 04/08/22 04/08/22 04/08/22 11:19 17:47 18:06 WBC RBC Hgb Hct MCV Plt Count Lymph % (Auto) [place] % (Auto) Lymph # (Auto) [place] # (Auto) Seg Neutrophils % Seg Neuts % (Manual) Lymphocytes % (Manual) Seg Neutrophils # Seg Neutrophils # Man Lymphocytes # (Manual) PT INR ABG pH ABG pO2 ABG HCO3 ABG O2 Saturation ABG Base Excess ABG Hemoglobin Oxyhemoglobin Sodium Potassium Chloride Carbon Dioxide BUN Creatinine Glucose POC Glucose 121 H Calcium Phosphorus Magnesium Total Creatine Kinase 31 L 46 L CK-MB (CK-2) Rel Index 6.4 H 5.6 H Troponin T 0.030 H 0.031 H C-Reactive Protein Total Protein Albumin LDL Cholesterol Direct Urine WBC (Auto) 04/09/22 04/09/22 04/09/22 04:35 04:35 11:24 WBC 11.5 H RBC 3.16 L Hgb 9.9 L Hct 29.4 L MCV Plt Count 131 L Lymph % (Auto) [place] % (Auto) Lymph # (Auto) [place] # (Auto) Seg Neutrophils % Seg Neuts % (Manual) Lymphocytes % (Manual) Seg Neutrophils # Seg Neutrophils # Man Lymphocytes # (Manual) PT INR ABG pH ABG pO2 ABG HCO3 ABG O2 Saturation ABG Base Excess ABG Hemoglobin Oxyhemoglobin Sodium Potassium Chloride 97.1 L Carbon Dioxide 35 H BUN Creatinine < 0.2 L Glucose 145 H POC Glucose 147 H Calcium Phosphorus Magnesium Total Creatine Kinase CK-MB (CK-2) Rel Index Troponin T C-Reactive Protein Total Protein Albumin LDL Cholesterol Direct Urine WBC (Auto) 04/09/22 04/09/22 04/09/22 13:00 17:32 23:48 WBC RBC Hgb Hct MCV Plt Count Lymph % (Auto) [place] % (Auto) Lymph # (Auto) [place] # (Auto) Seg Neutrophils % Seg Neuts % (Manual) Lymphocytes % (Manual) Seg Neutrophils # Seg Neutrophils # Man Lymphocytes # (Manual) PT INR ABG pH ABG pO2 66.6 L ABG HCO3 38.2 H ABG O2 Saturation 94.4 L ABG Base Excess 10.7 H ABG Hemoglobin 10.7 L Oxyhemoglobin 92.8 L Sodium Potassium Chloride Carbon Dioxide BUN Creatinine Glucose POC Glucose 143 H 114 H Calcium Phosphorus Magnesium Total Creatine Kinase CK-MB (CK-2) Rel Index Troponin T C-Reactive Protein Total Protein Albumin LDL Cholesterol Direct Urine WBC (Auto) 04/10/22 04/10/22 04/10/22 04:48 04:48 05:34 WBC RBC 2.91 L Hgb 9.1 L Hct 27.7 L MCV 95 H Plt Count Lymph % (Auto) [place] % (Auto) Lymph # (Auto) [place] # (Auto) Seg Neutrophils % Seg Neuts % (Manual) Lymphocytes % (Manual) Seg Neutrophils # Seg Neutrophils # Man Lymphocytes # (Manual) PT INR ABG pH ABG pO2 ABG HCO3 ABG O2 Saturation ABG Base Excess ABG Hemoglobin Oxyhemoglobin Sodium Potassium Chloride 95.7 L Carbon Dioxide 38 H BUN Creatinine < 0.2 L Glucose 118 H POC Glucose 127 H Calcium Phosphorus Magnesium Total Creatine Kinase CK-MB (CK-2) Rel Index Troponin T C-Reactive Protein Total Protein Albumin LDL Cholesterol Direct Urine WBC (Auto) 04/10/22 04/11/22 04/11/22 23:10 04:15 04:15 WBC 17.2 H RBC 2.98 L Hgb 9.2 L Hct 27.9 L MCV Plt Count Lymph % (Auto) [place] % (Auto) Lymph # (Auto) [place] # (Auto) Seg Neutrophils % Seg Neuts % (Manual) Lymphocytes % (Manual) Seg Neutrophils # Seg Neutrophils # Man Lymphocytes # (Manual) PT INR ABG pH ABG pO2 ABG HCO3 ABG O2 Saturation ABG Base Excess ABG Hemoglobin Oxyhemoglobin Sodium Potassium Chloride 96.1 L Carbon Dioxide 35 H BUN Creatinine < 0.2 L Glucose 138 H POC Glucose 106 H Calcium 8.3 L Phosphorus Magnesium Total Creatine Kinase CK-MB (CK-2) Rel Index Troponin T C-Reactive Protein Total Protein Albumin LDL Cholesterol Direct Urine WBC (Auto) 04/11/22 04/11/22 04/11/22 05:31 13:18 16:20 WBC RBC Hgb Hct MCV Plt Count Lymph % (Auto) [place] % (Auto) Lymph # (Auto) [place] # (Auto) Seg Neutrophils % Seg Neuts % (Manual) Lymphocytes % (Manual) Seg Neutrophils # Seg Neutrophils # Man Lymphocytes # (Manual) PT INR ABG pH ABG pO2 57.8 L ABG HCO3 40.5 H ABG O2 Saturation 90.6 L ABG Base Excess 12.6 H ABG Hemoglobin 10.5 L Oxyhemoglobin 89.0 L Sodium Potassium Chloride Carbon Dioxide BUN Creatinine Glucose POC Glucose 129 H 132 H Calcium Phosphorus Magnesium Total Creatine Kinase CK-MB (CK-2) Rel Index Troponin T C-Reactive Protein Total Protein Albumin LDL Cholesterol Direct Urine WBC (Auto) 04/11/22 04/11/22 04/12/22 17:29 23:17 04:00 WBC 17.4 H RBC 2.96 L Hgb 9.0 L Hct 28.0 L MCV 95 H Plt Count Lymph % (Auto) [place] % (Auto) Lymph # (Auto) [place] # (Auto) Seg Neutrophils % Seg Neuts % (Manual) Lymphocytes % (Manual) Seg Neutrophils # Seg Neutrophils # Man Lymphocytes # (Manual) PT INR ABG pH ABG pO2 ABG HCO3 ABG O2 Saturation ABG Base Excess ABG Hemoglobin Oxyhemoglobin Sodium Potassium Chloride Carbon Dioxide BUN Creatinine Glucose POC Glucose 125 H 151 H Calcium Phosphorus Magnesium Total Creatine Kinase CK-MB (CK-2) Rel Index Troponin T C-Reactive Protein Total Protein Albumin LDL Cholesterol Direct Urine WBC (Auto) 04/12/22 04/12/22 04/12/22 04:00 17:03 23:39 WBC RBC Hgb Hct MCV Plt Count Lymph % (Auto) [place] % (Auto) Lymph # (Auto) [place] # (Auto) Seg Neutrophils % Seg Neuts % (Manual) Lymphocytes % (Manual) Seg Neutrophils # Seg Neutrophils # Man Lymphocytes # (Manual) PT INR ABG pH ABG pO2 ABG HCO3 ABG O2 Saturation ABG Base Excess ABG Hemoglobin Oxyhemoglobin Sodium Potassium Chloride 97.4 L Carbon Dioxide 37 H BUN Creatinine < 0.2 L Glucose 127 H POC Glucose 106 H 107 H Calcium Phosphorus Magnesium Total Creatine Kinase CK-MB (CK-2) Rel Index Troponin T C-Reactive Protein Total Protein Albumin LDL Cholesterol Direct Urine WBC (Auto) 04/13/22 04/13/22 04/13/22 04:30 04:30 17:39 WBC 14.1 H RBC 2.66 L Hgb 8.4 L Hct 25.5 L MCV 96 H Plt Count Lymph % (Auto) [place] % (Auto) Lymph # (Auto) [place] # (Auto) Seg Neutrophils % Seg Neuts % (Manual) Lymphocytes % (Manual) Seg Neutrophils # Seg Neutrophils # Man Lymphocytes # (Manual) PT INR ABG pH ABG pO2 ABG HCO3 ABG O2 Saturation ABG Base Excess ABG Hemoglobin Oxyhemoglobin Sodium Potassium Chloride 93.9 L Carbon Dioxide 39 H BUN Creatinine < 0.2 L Glucose POC Glucose 134 H Calcium Phosphorus 1.90 L Magnesium Total Creatine Kinase CK-MB (CK-2) Rel Index Troponin T C-Reactive Protein Total Protein Albumin LDL Cholesterol Direct Urine WBC (Auto) 04/14/22 04/14/22 04/14/22 05:03 05:03 09:10 WBC 15.6 H RBC 3.02 L Hgb 9.3 L Hct 28.8 L MCV 95 H Plt Count Lymph % (Auto) [place] % (Auto) Lymph # (Auto) [place] # (Auto) Seg Neutrophils % Seg Neuts % (Manual) Lymphocytes % (Manual) Seg Neutrophils # Seg Neutrophils # Man Lymphocytes # (Manual) PT INR ABG pH ABG pO2 66.9 L ABG HCO3 44.5 H ABG O2 Saturation ABG Base Excess 17.2 H ABG Hemoglobin 8.1 L Oxyhemoglobin 94.8 L Sodium Potassium Chloride 93.8 L Carbon Dioxide 42 H* BUN Creatinine < 0.2 L Glucose 117 H POC Glucose Calcium Phosphorus Magnesium Total Creatine Kinase CK-MB (CK-2) Rel Index Troponin T C-Reactive Protein Total Protein Albumin LDL Cholesterol Direct Urine WBC (Auto) 04/15/22 04/15/22 04/16/22 04:44 04:44 04:16 WBC 13.0 H 12.6 H RBC 3.19 L 3.09 L Hgb 9.6 L 9.5 L Hct 30.2 L 29.1 L MCV 95 H Plt Count 456 H Lymph % (Auto) [place] % (Auto) Lymph # (Auto) [place] # (Auto) Seg Neutrophils % Seg Neuts % (Manual) Lymphocytes % (Manual) Seg Neutrophils # Seg Neutrophils # Man Lymphocytes # (Manual) PT INR ABG pH ABG pO2 ABG HCO3 ABG O2 Saturation ABG Base Excess ABG Hemoglobin Oxyhemoglobin Sodium Potassium Chloride 95.5 L Carbon Dioxide 37 H BUN Creatinine < 0.2 L Glucose POC Glucose Calcium Phosphorus Magnesium Total Creatine Kinase CK-MB (CK-2) Rel Index Troponin T C-Reactive Protein Total Protein Albumin LDL Cholesterol Direct Urine WBC (Auto) 04/16/22 04/16/22 04/16/22 04:16 05:00 14:00 WBC RBC Hgb Hct MCV Plt Count Lymph % (Auto) [place] % (Auto) Lymph # (Auto) [place] # (Auto) Seg Neutrophils % Seg Neuts % (Manual) Lymphocytes % (Manual) Seg Neutrophils # Seg Neutrophils # Man Lymphocytes # (Manual) PT INR ABG pH 7.324 L ABG pO2 55.6 L ABG HCO3 45.3 H ABG O2 Saturation 87.1 L ABG Base Excess 16.6 H ABG Hemoglobin 8.6 L Oxyhemoglobin 85.7 L Sodium Potassium Chloride 97.6 L Carbon Dioxide 36 H BUN Creatinine < 0.2 L Glucose 109 H POC Glucose 120 H Calcium Phosphorus Magnesium Total Creatine Kinase CK-MB (CK-2) Rel Index Troponin T C-Reactive Protein Total Protein Albumin LDL Cholesterol Direct Urine WBC (Auto) 04/17/22 04/17/22 04/17/22 04:36 04:36 04:57 WBC 14.4 H RBC 3.08 L Hgb 9.4 L Hct 29.0 L MCV Plt Count Lymph % (Auto) [place] % (Auto) Lymph # (Auto) [place] # (Auto) Seg Neutrophils % Seg Neuts % (Manual) Lymphocytes % (Manual) Seg Neutrophils # Seg Neutrophils # Man Lymphocytes # (Manual) PT INR ABG pH ABG pO2 ABG HCO3 ABG O2 Saturation ABG Base Excess ABG Hemoglobin Oxyhemoglobin Sodium Potassium Chloride 95.9 L Carbon Dioxide 39 H BUN Creatinine < 0.2 L Glucose 140 H POC Glucose 137 H Calcium 8.3 L Phosphorus Magnesium Total Creatine Kinase CK-MB (CK-2) Rel Index Troponin T C-Reactive Protein Total Protein Albumin LDL Cholesterol Direct Urine WBC (Auto) 04/17/22 04/17/22 04/18/22 09:15 18:01 04:20 WBC 11.2 H RBC 3.00 L Hgb 9.3 L Hct 28.6 L MCV 95 H Plt Count Lymph % (Auto) [place] % (Auto) Lymph # (Auto) [place] # (Auto) Seg Neutrophils % Seg Neuts % (Manual) Lymphocytes % (Manual) Seg Neutrophils # Seg Neutrophils # Man Lymphocytes # (Manual) PT INR ABG pH 7.345 L ABG pO2 ABG HCO3 48.2 H ABG O2 Saturation ABG Base Excess 19.2 H ABG Hemoglobin 9.7 L Oxyhemoglobin Sodium Potassium Chloride Carbon Dioxide BUN Creatinine Glucose POC Glucose 129 H Calcium Phosphorus Magnesium Total Creatine Kinase CK-MB (CK-2) Rel Index Troponin T C-Reactive Protein Total Protein Albumin LDL Cholesterol Direct Urine WBC (Auto) 04/18/22 04/18/22 04/18/22 04:20 17:35 23:50 WBC RBC Hgb Hct MCV Plt Count Lymph % (Auto) [place] % (Auto) Lymph # (Auto) [place] # (Auto) Seg Neutrophils % Seg Neuts % (Manual) Lymphocytes % (Manual) Seg Neutrophils # Seg Neutrophils # Man Lymphocytes # (Manual) PT INR ABG pH ABG pO2 ABG HCO3 ABG O2 Saturation ABG Base Excess ABG Hemoglobin Oxyhemoglobin Sodium Potassium Chloride 96.8 L Carbon Dioxide 43 H* BUN 22 H Creatinine < 0.2 L Glucose 137 H POC Glucose 128 H 123 H Calcium 8.2 L Phosphorus Magnesium Total Creatine Kinase CK-MB (CK-2) Rel Index Troponin T C-Reactive Protein Total Protein Albumin LDL Cholesterol Direct Urine WBC (Auto) 04/19/22 04/19/22 04/19/22 04:08 04:08 08:50 WBC 16.8 H RBC 3.18 L Hgb 9.8 L Hct 30.1 L MCV 95 H Plt Count Lymph % (Auto) [place] % (Auto) Lymph # (Auto) [place] # (Auto) Seg Neutrophils % Seg Neuts % (Manual) Lymphocytes % (Manual) Seg Neutrophils # Seg Neutrophils # Man Lymphocytes # (Manual) PT INR ABG pH ABG pO2 56.0 L ABG HCO3 47.1 H ABG O2 Saturation 93.3 L ABG Base Excess 20.1 H ABG Hemoglobin 8.0 L Oxyhemoglobin 91.8 L Sodium Potassium Chloride 96.2 L Carbon Dioxide 40 H BUN 24 H Creatinine < 0.2 L Glucose 125 H POC Glucose Calcium 8.3 L Phosphorus Magnesium Total Creatine Kinase CK-MB (CK-2) Rel Index Troponin T C-Reactive Protein Total Protein Albumin LDL Cholesterol Direct Urine WBC (Auto) 04/19/22 04/20/22 04/20/22 12:02 00:40 04:49 WBC 14.7 H RBC 3.36 L Hgb 10.3 L Hct 32.0 L MCV 95 H Plt Count Lymph % (Auto) [place] % (Auto) Lymph # (Auto) [place] # (Auto) Seg Neutrophils % Seg Neuts % (Manual) Lymphocytes % (Manual) Seg Neutrophils # Seg Neutrophils # Man Lymphocytes # (Manual) PT INR ABG pH ABG pO2 ABG HCO3 ABG O2 Saturation ABG Base Excess ABG Hemoglobin Oxyhemoglobin Sodium Potassium Chloride Carbon Dioxide BUN Creatinine Glucose POC Glucose 124 H 140 H Calcium Phosphorus Magnesium Total Creatine Kinase CK-MB (CK-2) Rel Index Troponin T C-Reactive Protein Total Protein Albumin LDL Cholesterol Direct Urine WBC (Auto) 04/20/22 04/20/22 04/21/22 05:36 11:40 04:05 WBC RBC Hgb Hct MCV Plt Count Lymph % (Auto) [place] % (Auto) Lymph # (Auto) [place] # (Auto) Seg Neutrophils % Seg Neuts % (Manual) Lymphocytes % (Manual) Seg Neutrophils # Seg Neutrophils # Man Lymphocytes # (Manual) PT INR ABG pH ABG pO2 ABG HCO3 ABG O2 Saturation ABG Base Excess ABG Hemoglobin Oxyhemoglobin Sodium Potassium Chloride 93.4 L Carbon Dioxide 40 H BUN 25 H Creatinine < 0.2 L Glucose 122 H POC Glucose 125 H 128 H Calcium Phosphorus Magnesium Total Creatine Kinase CK-MB (CK-2) Rel Index Troponin T C-Reactive Protein Total Protein Albumin LDL Cholesterol Direct Urine WBC (Auto) 04/21/22 04/22/22 04/22/22 10:31 05:03 05:03 WBC 12.6 H 12.7 H RBC 2.83 L 2.96 L Hgb 8.6 L 9.0 L Hct 26.9 L 28.0 L MCV 95 H 95 H Plt Count Lymph % (Auto) [place] % (Auto) Lymph # (Auto) [place] # (Auto) Seg Neutrophils % Seg Neuts % (Manual) Lymphocytes % (Manual) Seg Neutrophils # Seg Neutrophils # Man Lymphocytes # (Manual) PT INR ABG pH ABG pO2 ABG HCO3 ABG O2 Saturation ABG Base Excess ABG Hemoglobin Oxyhemoglobin Sodium Potassium Chloride 93.9 L Carbon Dioxide 43 H* BUN 23 H Creatinine < 0.2 L Glucose 137 H POC Glucose Calcium Phosphorus Magnesium Total Creatine Kinase CK-MB (CK-2) Rel Index Troponin T C-Reactive Protein Total Protein Albumin LDL Cholesterol Direct Urine WBC (Auto) 04/22/22 04/23/22 04/24/22 08:34 09:40 04:29 WBC 14.4 H RBC 2.74 L Hgb 8.4 L Hct 25.7 L MCV Plt Count Lymph % (Auto) M[place]rack[place] % (Auto) Lymph # (Auto) [place] # (Auto) Seg Neutrophils % Seg Neuts % (Manual) Lymphocytes % (Manual) Seg Neutrophils # Seg Neutrophils # Man Lymphocytes # (Manual) PT INR ABG pH ABG pO2 54.1 L 56.8 L ABG HCO3 48.5 H 49.0 H ABG O2 Saturation 92.1 L 90.9 L ABG Base Excess 20.9 H 20.8 H ABG Hemoglobin 9.0 L 8.4 L Oxyhemoglobin 90.6 L 89.5 L Sodium Potassium Chloride Carbon Dioxide BUN Creatinine Glucose POC Glucose Calcium Phosphorus Magnesium Total Creatine Kinase CK-MB (CK-2) Rel Index Troponin T C-Reactive Protein Total Protein Albumin LDL Cholesterol Direct Urine WBC (Auto) 04/24/22 04/25/22 04/26/22 04:29 09:00 04:22 WBC RBC 2.88 L Hgb 8.9 L Hct 26.8 L MCV Plt Count Lymph % (Auto) [place] % (Auto) Lymph # (Auto) [place] # (Auto) Seg Neutrophils % Seg Neuts % (Manual) Lymphocytes % (Manual) Seg Neutrophils # Seg Neutrophils # Man Lymphocytes # (Manual) PT INR ABG pH 7.457 H ABG pO2 66.7 L ABG HCO3 42.6 H ABG O2 Saturation ABG Base Excess 15.3 H ABG Hemoglobin 8.8 L Oxyhemoglobin 94.1 L Sodium Potassium Chloride 90.7 L Carbon Dioxide 40 H BUN Creatinine < 0.2 L Glucose 133 H POC Glucose Calcium Phosphorus Magnesium Total Creatine Kinase CK-MB (CK-2) Rel Index Troponin T C-Reactive Protein Total Protein Albumin LDL Cholesterol Direct Urine WBC (Auto) 04/26/22 04:22 WBC RBC Hgb Hct MCV Plt Count Lymph % (Auto) [place] % (Auto) Lymph # (Auto) [place] # (Auto) Seg Neutrophils % Seg Neuts % (Manual) Lymphocytes % (Manual) Seg Neutrophils # Seg Neutrophils # Man Lymphocytes # (Manual) PT INR ABG pH ABG pO2 ABG HCO3 ABG O2 Saturation ABG Base Excess ABG Hemoglobin Oxyhemoglobin Sodium Potassium Chloride 93.2 L Carbon Dioxide 37 H BUN Creatinine < 0.2 L Glucose 114 H POC Glucose Calcium Phosphorus Magnesium Total Creatine Kinase CK-MB (CK-2) Rel Index Troponin T C-Reactive Protein Total Protein Albumin LDL Cholesterol Direct Urine WBC (Auto) Allied health notes reviewed: nursing
[2022-04-28] MEDS: METOPROLOL TARTRATE 25 MG TAB FEEDTUBE SCH ×4 (02:34→17:48)
[2022-04-28] MEDS: ALBUTEROL 2.5 MG/3 ML NEBU IH SCH ×4 (03:22→23:59)
[2022-04-28] MEDS: ACETYLCYSTEINE 20% 200 MG/1 ML *FOR INHALATION USE INHALATION SCH ×4 (03:24→23:59)
[2022-04-28] MEDS: HEPARIN 5,000 UNIT/1 ML VIAL SUB-Q SCH ×3 (05:55→21:15)
[2022-04-28] MEDS: INSULIN REGULAR, HUMAN 100 UNITS/1 ML SUB-Q SCH ×4 (06:06→18:17)
--- NOTE | 2022-04-28 09:18 | Progress Note ---
<ALEK SMITH - Last Filed: 04/28/22 16:56> Assessment and Plan Assessment and plan: This is a 57-year-old male with known history of ALS, recently hospitalized at [facility] admitted for acute hypoxemic respiratory failure 2/2 pneumonia Hospital Course to Date: 04/03: Intubated and Sedated on versed gtt, RASS-5. CT head/brain noted with no acute intracranial abnormality. Plan to initiated precededx gtt and wean off versed for a RASS goal of 0 to -2. CT chect also reviewed, findings are most consistent with acute bronchopneumonia. Continue empiric IV Abx, vent adjustment per CCM. ID consulted. Continue to F/U on cultures. Titrate pressor for MAP above 65. Medical records requested from [facility]. 04/04: Remains stable on the vent, easily arousable on precedex gtt, not following commands. Plan for SAT/SBT today. PRN analgesia for CPOT greater than 3. Fevers improved, cultures and procal pending. Continue current IV abx, ID also consulted. Remains on low dose pressors, titrate pressors for a MAP above 65. 04/05: Long discussion with family with use of translation phone with CCM regarding goals of care. Family to have meeting amongst themselves and informed care team of decisions. Fentanyl drip added for respiratory distress. Remains on Precedex drip. Antibiotics per ID. Given 2L NS bolus with levophed gtt 04/06: Family discussion with Dr. Grayson for goals of care. CXR shows possible mucus plug, continue CPT as FiO2 is being able to be weaned. Potassium repleted. Weaning fentnyl gtt. 04/07: Ultrasound guided thoracentesis today scheduled, inadequate amount of pleural effusion on so not completed. Patient was started on Levophed overnight which was weaned off this morning however had to be started twice a day. Remains on fentanyl and Precedex. Cardiology discontinued BB and ACEi in setting of hypotension. 04/08: COVID-19 PCR negative. Routine EEG ordered by cardiology which showed ST changes, cardiology aware. They will continue conservative treatment. Repeat troponins 0.030 which are less than admit of 0.048. Dr. Grayson had a long discu ssion with with the use of automotive service assistant today at bedside and has not made a decision regarding goals of care. Possible consult to surgery for trach/PEG early next week. Continues to require Precedex and fentanyl drip for sedation. Carvedilol/lisinopril discontinued as patient is continuously on Levophed. 04/09: No acute events reported overnight, remains on fentanyl, Precedex and Levophed drips. Dr. Grayson and Dr. Pineda updated family at bedside extensively today. Consulted surgery for trach/PEG. COVID-19 PCR negative. 04/10: Patient noted to have desaturation episodes, FiO2 increased slightly to 35%. Will add Mucomyst. Remains on fentanyl and Precedex. Off of Levophed. Surgery consulted for trach/PEG. 04/11: FiO2 increased over night likely related to hypoxia, continues on fent gtt, weaning precedex gtt as he is also on Seroquel. Will d/w CCM re scheduled or prn oxycodone 04/12: Periods of hypoxia and tachycardia this am. Symptoms improved post deep suction and tracheal lavage, Repeat CXR noted with no significant change. Continue CPT and mucomyst. Plan for possible trach/PEG tomorrow by general surgery. 04/13: Remains stable on the vent. Patient is wake and tracking but does not follow simple commands. No report of hypoxia from overnight, continue CPT and mucomyst. Plan for track and PEG today by General Surgery. Plan for LTAC placement post procedure, case management to arrange. 04/14: VIRGILIO overnight, Trach and PEG postponed for today by general surgery. Plan for LTAC placement post procedure, case management to arrange. 04/15: S/p Trach and PEG. Up to 80% FiO2 this am, this am CXR noted suggesting possible mucus plug. D/W [facility] plan for bronch today. Continue CPT and mucomyst. Plan of care thoroughly discussed with patient's and son (who translated for ) at the bedside. Per , single end sewer had already discussed the risks and benefits of the procedure yesterday. She verbalized understanding and agreed with procedure and current care plan, consent signed. Okay to use PEG-tube for meds this am, resume TF once okay by general Surgery. Case management to arrange LTAC placement. 04/16: s/p Bronchocopy by [facility]. FiO2 down to 60%, angela 10 this am. This am CXR with moderate improvement. Continue CPT and mucomyst, wean Fio2 as tolerated for SPO2 above 92%. Patient is tolerating TF, advance to goal as ordered. Possible LTAC placement, case management to arrange. 04/17: VIRGILIO overnight. remains stable on the vent, recent CXR and this am ABG n oted. Continue CPT and mucomyst, wean Fio2 as tolerated. 04/18: Remains stable on the vent, Fio2 down to 55% and peep of 8 this am. Continue to wean as tolerated, CPT, and mucomyst. Dsiposition- LTAC placement, case management to arrange. 04/19: No acute events overnight. Continue current management. 04/20: No acute events overnight, continue current management 04/21: Patient had chest ultrasound which showed trace pleural effusions, chest x-ray improved after the addition of Mucomyst yesterday. FiO2 55-65%. No acute events overnight. more interactive today. 04/22: Seroquel changed to BID, FiO2 was increased to 60%. RT increased FIO2 to 100 d/t desaturation into the 80s but was able to wean down. CCM increased PEEP and decreased FiO2. 04/23: CCM increase PEEP, no acute events reported overnight. 04/24: Spoke to RT about decreasing FiO2 as tolerated. No acute events reported overnight. Continue supportive management. 04/25: Weaning as tolerated. no acute events overnight. RT to attempt CPAP again today 04/26: VIRGILIO overnight. Patient failed PSV trial again this morning. Continue s upportive management and daily PST trial. 04/27: Patient failed PSV trial again this am due to episodes of apnea. Continue daily PSV trial as tolerated. Case management to arrange LTAC placement 04/28: Remains stable. Continue daily PSV trial as tolerated. Awaiting approval for LTAC Assessment and Plan #Acute Hypoxemic Respiratory Failure 12/09 #Acute Bronchopneumonia - Intubated in the ED on 04/02 for hypoxemia and airway protection - 04/14 s/p Trach and PEG - 04/15 CXR reviewed complete opacity of the righ side suggesting possible mucus plug. See report for detail - 04/15 s/p Bronchoscopy by CCM - Vent setting: PRVC-40%,10,14,400 - No ABG this am - CCM consulted, appreciate recommendations - Patient failed PST trial again today due to episodes of apnea - Continue daily PSVT as tolerated - Continue CPT and mucomyst per [facility] - VAP bundle addressed - Aspiration precaution HOB above 30 - PRN ABG and CXR per CCM - Continue SPO2 monitoring for SPO2 goal above 92% #Sepsis #Acute Bronchopneumonia #HCAP #Leukocytosis - CXR shows moderate to large layering effusion on the right, see report for full detail - CT chest also reviewed, findings are most consistent with acute bronchopneumonia. See report for full detail - Patient was recent hospitalized for pneumonia - Patient remains afebrile - Tracheal aspirate with Pseudomonas aeruginosa, Enterobacter aerogenes - 04/02 blood culture with bacillus species, 04/05 blood culture NGTD - Patient completed [id number] of Cefepine - CRP 31.6, procalcitonin 0.08 - MRSA negative - Daily CBC monitor - ID signed off #Suspect ischemic coronary artery disease #h/o cardiomyopathy - Low BP probably due to hypovolemia vs sedation vs infectious process - s/p Levophed gtt - Elevated troponin possibly a type II troponin leak - Cardiology consulted, appreciated recommendations - Echocardiogram shows ejection fraction of 40 to 45%, mild global hypokinesis of left ventricle - Continue BB - Continue blood pressure monitor per protocol - Maintain MAP above 65 - On heparin SubQ #H/o Amyotrophic Lateral Sclerosis #Acute Metabolic Encephalopathy-resolved #Nonverbal at Baseline - Presented with AMS, per family patient is nonverbal at baseline but responsive - CT head/Brain with no acute intracranial process - Off sedation. Awake and calm - Continue Seroquel per [facility] - Avoid benzodiazepine to reduce the possibility of delirium - PRN analgesia for CPOT greater than 3 - Maintenance of sleep-wake cycle #Thrombocytopenia-resolved - Continue to trend plt - On heparin subQ - Monitor for s/s of any active bleeding #Hypernatremia-resolved - Monitor and replace electrolytes as needed - Continue to trend BMP #Protein Caloric Malnutrition - Albumin 2.7, Total protein 4.6 - 04/15 s/p EPG-Tube placement - Continue enteral nutrition - Nutrition consulted #Constipation - Noted on CXR and KUB - last BM 04/27 - Continue BR #GI/DVT Prophylaxis - PPI- Pepcid - Heparin SubQ - SCDs to bilateral lower extremities while in bed #Advance Care Planning - Disease education data, care plan, diagnoses, and prognosis were discussed patient's , Carly Lopez, and patient daughter, Kaylee Warren, who translated for #[phone]. They reported that patient was following at [facility] for his ALS and during recent hospitalization at [facility] they were told nothing else can be offered to patient at this time and patient was discharge home with home hospice and PO morphine. First hospice visit was on , however, patient became unresponsive yesterday and they brought in to the hospital. - Goal of care and code status were also addressed at that time. Family wants to wait for a couple days to see how patient respond to current treatment before making a decision. All questions and concerns were addressed at this time. Patient family acknowledged understanding and agreement with care plan. - Patient remains a FULL CODE status -04/05: Discussion at bedside with interpreting service with Dr. Valdivia and family state they would discuss next steps amongst themselves and let healthcare team know of decisions -04/06: extensive discussion with family ( and son) with Dr. Grayson regarding goals of care -04/08: Extensive discussion with with the use of automotive service assistant line regarding goals of care; no decision made. Possible consult to surgery for trach/PEG early next week. -04/09: Discussion with and her sister with Dr. Grayson and then with Dr. Pineda-> Consulted surgery for trach/peg -Plan LTAC placement, case management to arrange. -will need to stay 21 days and have 3 failed PSV trials. The high probability of a clinically significant, sudden or life threatening deterioration of the [multiple] system(s) required my full and direct attention, intervention and personal management. The aggregate critical care time was [60] minutes. This time is in addition to time spent performing reported procedures but includes the following: [x] Data Review and interpretation [x] Patient assessment and monitoring of vital signs [x] Documentation [x] Medication orders and management Disposition Plan: ICU Total Time Spent with Patient (Minutes): 60 History Interval history: Patient seen and examined at the bedside. Stable on the vent, awake and tracking, following simple commands, VSS. Patient failed PSV trial again this am. Otherwise VIRGILIO overnight Hospitalist Physical - Physical exam Narrative exam: General appearance: Present: no acute distress, cachectic, other (Trach and on the vent.Awake and tracking, following simple commands) - EENT Eyes: Present: PERRL - Neck Neck: Present: normal ROM - Respiratory Respiratory effort: normal Respiratory: bilateral: rhonchi - Cardiovascular Rhythm: regular Heart Sounds: Present: S1 & S2 - Extremities Extremities: no ischemia, pulses intact, pulses symmetrical Peripheral Pulses: within normal limits - Abdominal General gastrointestinal: soft, non-distended, normal bowel sounds - Integumentary Integumentary: Present: warm, dry - Psychiatric Psychiatric: other (Trach and on the vent. Awake and tracking, following simple commands) - Neurologic Neurologic: other (Trach and on the vent. Awake and tracking, following simple commands) - Allied Health Allied health notes reviewed: nursing, case management - Constitutional Vitals: Temp Pulse Resp BP Pulse Ox 98.2 F 93 H 14 102/65 100 04/28/22 08:00 04/28/22 08:00 04/28/22 08:00 04/28/22 08:00 04/28/22 08:15 HEART Score - HEART Score Troponin: Troponin T 0.031 ng/mL (0.00-0.029) H 04/08/22 17:47 Results - Labs CBC & Chem 7: 04/26/22 04:22 04/26/22 04:22 Labs: Laboratory Last Values WBC 10.0 K/mm3 (4.5-11.0) 04/26/22 04:22 RBC 2.88 M/mm3 (3.65-5.03) L 04/26/22 04:22 Hgb 8.9 gm/dl (11.8-15.2) L 04/26/22 04:22 Hct 26.8 % (35.5-45.6) L 04/26/22 04:22 MCV 93 fl (84-94) 04/26/22 04:22 MCH 31 pg (28-32) 04/26/22 04:22 MCHC 33 % (32-34) 04/26/22 04:22 RDW 13.8 % (13.2-15.2) 04/26/22 04:22 Plt Count 376 K/mm3 (140-440) 04/26/22 04:22 Lymph % (Auto) 4.3 % (13.4-35.0) L 04/07/22 03:51 [place] % (Auto) 8.8 % (0.0-7.3) H 04/07/22 03:51 Eos % (Auto) 0.1 % (0.0-4.3) 04/07/22 03:51 Baso % (Auto) 0.2 % (0.0-1.8) 04/07/22 03:51 Lymph # (Auto) 0.6 K/mm3 (1.2-5.4) L 04/07/22 03:51 [place] # (Auto) 1.3 K/mm3 (0.0-0.8) H 04/07/22 03:51 Eos # (Auto) 0.0 K/mm3 (0.0-0.4) 04/07/22 03:51 Baso # (Auto) 0.0 K/mm3 (0.0-0.1) 04/07/22 03:51 Add Manual Diff Complete 04/02/22 19:39 Total Counted 100 04/02/22 19:39 Seg Neutrophils % 86.6 % (40.0-70.0) H 04/07/22 03:51 Seg Neuts % (Manual) 94.0 % (40.0-70.0) H 04/02/22 19:39 Band Neutrophils % 0 % 04/02/22 19:39 Lymphocytes % (Manual) 1.0 % (13.4-35.0) L 04/02/22 19:39 Reactive Lymphs % (Man) 0 % 04/02/22 19:39 Monocytes % (Manual) 5.0 % (0.0-7.3) 04/02/22 19:39 Eosinophils % (Manual) 0 % (0.0-4.3) 04/02/22 19:39 Basophils % (Manual) 0 % (0.0-1.8) 04/02/22 19:39 Metamyelocytes % 0 % 04/02/22 19:39 Myelocytes % 0 % 04/02/22 19:39 Promyelocytes % 0 % 04/02/22 19:39 Blast Cells % 0 % 04/02/22 19:39 Nucleated RBC % Not Reportable 04/02/22 19:39 Seg Neutrophils # 12.7 K/mm3 (1.8-7.7) H 04/07/22 03:51 Seg Neutrophils # Man 13.4 K/mm3 (1.8-7.7) H 04/02/22 19:39 Band Neutrophils # 0.0 K/mm3 04/02/22 19:39 Lymphocytes # (Manual) 0.1 K/mm3 (1.2-5.4) L 04/02/22 19:39 Abs React Lymphs (Man) 0.0 K/mm3 04/02/22 19:39 Monocytes # (Manual) 0.7 K/mm3 (0.0-0.8) 04/02/22 19:39 Eosinophils # (Manual) 0.0 K/mm3 (0.0-0.4) 04/02/22 19:39 Basophils # (Manual) 0.0 K/mm3 (0.0-0.1) 04/02/22 19:39 Metamyelocytes # 0.0 K/mm3 04/02/22 19:39 Myelocytes # 0.0 K/mm3 04/02/22 19:39 Promyelocytes # 0.0 K/mm3 04/02/22 19:39 Blast Cells # 0.0 K/mm3 04/02/22 19:39 WBC Morphology Not Reportable 04/02/22 19:39 Hypersegmented Neuts Not Reportable 04/02/22 19:39 Hyposegmented Neuts Not Reportable 04/02/22 19:39 Hypogranular Neuts Not Reportable 04/02/22 19:39 Smudge Cells Not Reportable 04/02/22 19:39 Toxic Granulation Not Reportable 04/02/22 19:39 Toxic Vacuolation Not Reportable 04/02/22 19:39 Dohle Bodies Not Reportable 04/02/22 19:39 Pelger-Huet Anomaly Not Reportable 04/02/22 19:39 Terry Rods Not Reportable 04/02/22 19:39 Platelet Estimate Consistent w auto 04/02/22 19:39 Clumped Platelets Not Reportable 04/02/22 19:39 Plt Clumps, EDTA Not Reportable 04/02/22 19:39 Large Platelets Not Reportable 04/02/22 19:39 Giant Platelets Not Reportable 04/02/22 19:39 Platelet Satelliting Not Reportable 04/02/22 19:39 Plt Morphology Comment Not Reportable 04/02/22 19:39 RBC Morphology Not Reportable 04/02/22 19:39 Dimorphic RBCs Not Reportable 04/02/22 19:39 Polychromasia Not Reportable 04/02/22 19:39 Hypochromasia Not Reportable 04/02/22 19:39 Poikilocytosis Not Reportable 04/02/22 19:39 Anisocytosis 1+ 04/02/22 19:39 Microcytosis Not Reportable 04/02/22 19:39 Macrocytosis Not Reportable 04/02/22 19:39 Spherocytes Not Reportable 04/02/22 19:39 Pappenheimer Bodies Not Reportable 04/02/22 19:39 Sickle Cells Not Reportable 04/02/22 19:39 Target Cells Not Reportable 04/02/22 19:39 Tear Drop Cells Not Reportable 04/02/22 19:39 Ovalocytes Not Reportable 04/02/22 19:39 Helmet Cells Not Reportable 04/02/22 19:39 [place] Bodies Not Reportable 04/02/22 19:39 [place] Rings Not Reportable 04/02/22 19:39 [place] Cells Not Reportable 04/02/22 19:39 Bite Cells Not Reportable 04/02/22 19:39 Crenated Cell Not Reportable 04/02/22 19:39 Elliptocytes Not Reportable 04/02/22 19:39 Acanthocytes (Spur) Not Reportable 04/02/22 19:39 Rouleaux Not Reportable 04/02/22 19:39 Hemoglobin C Crystals Not Reportable 04/02/22 19:39 Schistocytes Not Reportable 04/02/22 19:39 Malaria parasites Not Reportable 04/02/22 19:39 [place] Bodies Not Reportable 04/02/22 19:39 Hem Pathologist Commnt No 04/02/22 19:39 PT 13.6 Sec. (12.2-14.9) 04/13/22 04:30 INR 0.94 (0.87-1.13) 04/13/22 04:30 APTT 35.7 Sec. (24.2-36.6) 04/07/22 03:51 ABG pH 7.457 pH Units (7.350-7.450) H 04/25/22 09:00 ABG pCO2 61.7 mm Hg 04/25/22 09:00 ABG pO2 66.7 mm Hg (80.0-90.0) L 04/25/22 09:00 ABG HCO3 42.6 mmol/L (20.0-26.0) H 04/25/22 09:00 ABG O2 Saturation 95.7 % (95.0-99.0) 04/25/22 09:00 ABG O2 Content 20.0 (0.0-44) 04/25/22 09:00 ABG Base Excess 15.3 mmol/L (-2.0-3.0) H 04/25/22 09:00 ABG Hemoglobin 8.8 gm/dl (14.0-18.0) L 04/25/22 09:00 ABG Carboxyhemoglobin 1.3 % (0.0-5.0) 04/25/22 09:00 ABG Methemoglobin 0.4 % (0.0-1.5) 04/25/22 09:00 Oxyhemoglobin 94.1 % (95.0-99.0) L 04/25/22 09:00 FiO2 35 % 04/25/22 09:00 Sodium 137 mmol/L (137-145) 04/26/22 04:22 Potassium 4.3 mmol/L (3.6-5.0) 04/26/22 04:22 Chloride 93.2 mmol/L (98-107) L 04/26/22 04:22 Carbon Dioxide 37 mmol/L (22-30) H 04/26/22 04:22 Anion Gap 11 mmol/L 04/26/22 04:22 BUN 16 mg/dL (9-20) 04/26/22 04:22 Creatinine < 0.2 mg/dL (0.8-1.3) L 04/26/22 04:22 Estimated GFR > 60 ml/min 04/26/22 04:22 BUN/Creatinine Ratio 80 % 04/26/22 04:22 Glucose 114 mg/dL (75-100) H 04/26/22 04:22 POC Glucose 128 mg/dL (70-105) H 04/20/22 11:40 Lactic Acid 1.90 mmol/L (0.7-2.0) 04/02/22 19:39 Calcium 8.5 mg/dL (8.4-10.2) 04/26/22 04:22 Phosphorus 3.60 mg/dL (2.5-4.5) 04/26/22 04:22 Magnesium 1.90 mg/dL (1.7-2.3) 04/26/22 04:22 Total Bilirubin 0.80 mg/dL (0.1-1.2) 04/02/22 19:39 AST 15 units/L (5-40) 04/02/22 19:39 ALT 9 units/L (7-56) 04/02/22 19:39 Alkaline Phosphatase 43 units/L (35-129) 04/02/22 19:39 Total Creatine Kinase 46 units/L (55-170) L 04/08/22 17:47 CK-MB (CK-2) 2.6 ng/mL (0.0-4.0) 04/08/22 17:47 CK-MB (CK-2) Rel Index 5.6 (0-4) H 04/08/22 17:47 Troponin T 0.031 ng/mL (0.00-0.029) H 04/08/22 17:47 C-Reactive Protein 31.60 mg/dL (0.00-1.30) H 04/04/22 04:18 Total Protein 4.6 g/dL (6.3-8.2) L 04/02/22 19:39 Albumin 2.7 g/dL (3.9-5) L 04/02/22 19:39 Albumin/Globulin Ratio 1.4 % 04/02/22 19:39 Triglycerides 80 mg/dL (2-149) 04/02/22 19:39 Cholesterol 94 mg/dL (50-199) 04/02/22 19:39 LDL Cholesterol Direct 27 mg/dL (50-130) L 04/02/22 19:39 HDL Cholesterol 47 mg/dL (40-59) 04/02/22 19:39 Cholesterol/HDL Ratio 2.00 % 04/02/22 19:39 Procalcitonin 0.08 ng/mL (<0.15) 04/04/22 04:18 Urine Color Arac[place] (Yellow) 04/05/22 17:45 Urine Turbidity Cloudy (Clear) 04/05/22 17:45 Urine pH 5.0 (5.0-7.0) 04/05/22 17:45 Ur Specific [place] 1.021 (1.003-1.030) 04/05/22 17:45 Urine Protein 30 mg/dl mg/dL (Negative) 04/05/22 17:45 Urine Glucose (UA) Neg mg/dL (Negative) 04/05/22 17:45 Urine Ketones Tr mg/dL (Negative) 04/05/22 17:45 Urine Blood Sm (Negative) 04/05/22 17:45 Urine Nitrite Neg (Negative) 04/05/22 17:45 Urine Bilirubin Neg (Negative) 04/05/22 17:45 Urine Urobilinogen < 2.0 mg/dL (<2.0) 04/05/22 17:45 Ur Leukocyte Esterase Tr (Negative) 04/05/22 17:45 Urine WBC (Auto) 8.0 /HPF (0.0-6.0) H 04/05/22 17:45 Urine RBC (Auto) 3.0 /HPF (0.0-6.0) 04/05/22 17:45 U Epithel Cells (Auto) 2.0 /HPF (0-13.0) 04/05/22 17:45 Urine Bacteria (Auto) 1+ /HPF (Negative) 04/02/22 Unknown Hyaline Casts 1 /LPF 04/05/22 17:45 Urine Mucus 3+ /HPF 04/05/22 17:45 Nasal Screen MRSA (PCR) Negative (Negative) 04/05/22 12:37 Vancomycin Trough 6.0 ug/mL (5.0-20.0) 04/05/22 18:53 Coronavirus (PCR) Negative (Negative) 04/07/22 14:52 Perez/IV: Voiding Method Condom Catheter Active Medications - Current Medications Current Medications: Generic Name Dose Route Start Last Admin Trade Name Freq PRN Reason Stop Dose Admin Acetaminophen 650 mg 04/02/22 23:53 04/21/22 16:23 Acetaminophen 325 Mg Tab PO 650 mg Q6H PRN Administration Pain MILD(1-3)/Fever >100.5/FAITH Acetylcysteine 200 mg 04/21/22 16:00 04/28/22 07:15 Acetylcysteine 20% 200 Mg/1 Ml *For Inhalation Use* INHALATION 200 mg Q8HRT SEGUNDO Administration Albuterol 2.5 mg 04/06/22 16:00 04/28/22 07:14 Albuterol 2.5 Mg/3 Ml Nebu IH 2.5 mg Q8HRT SEGUNDO Administration Bisacodyl 10 mg 04/07/22 09:44 04/12/22 10:06 Bisacodyl 10 Mg Rect Supp AL 10 mg QDAY PRN Administration Constipation Dextrose 50 ml 04/06/22 17:54 Dextrose 50% In Water (25gm) 50 Ml Syringe IV Q30MIN PRN Hypoglycemia Protocol Docusate Sodium 100 mg 04/28/22 10:00 Docusate Sodium 100 Mg/10 Ml Oral Liqd FEEDTUBE BID SEGUNDO Famotidine 20 mg 04/06/22 10:00 04/27/22 21:54 Famotidine 20 Mg Tab FEEDTUBE 20 mg BID SEGUNDO Administration Fentanyl 50 mcg 04/04/22 15:56 04/23/22 17:00 Fentanyl 100 Mcg/2 Ml Inj IV 50 mcg Q2HR PRN Administration For CPOT of greater than 3 Heparin Sodium (Porcine) 5,000 unit 04/03/22 06:00 04/28/22 05:55 Heparin 5,000 Unit/1 Ml Vial SUB-Q 5,000 unit Q8HR SEGUNDO Administration Insulin Human Regular 0 units 04/06/22 18:00 04/28/22 06:06 Insulin Regular, Human 100 Units/1 Ml SUB-Q Not Given Q6H [facility] Protocol Magnesium Hydroxide 30 ml 04/02/22 23:53 Magnesium Hydroxide (Mom) Oral Liqd Udc PO Q4H PRN Constipation Metoprolol Tartrate 25 mg 04/16/22 18:00 04/28/22 05:55 Metoprolol Tartrate 25 Mg Tab FEEDTUBE 25 mg Q6HR SEGUNDO Administration Ondansetron HCl 4 mg 04/02/22 23:53 Ondansetron 4 Mg/2 Ml Inj IV Q8H PRN Nausea And Vomiting Polyethylene Glycol 17 gm 04/08/22 10:00 04/27/22 09:25 Polyethylene Glycol 3350 17 Gm Powder PO 17 gm QDAY SEGUNDO Administration Quetiapine Fumarate 50 mg 04/28/22 10:00 Quetiapine 25 Mg Tab FEEDTUBE BID SEGUNDO Senna 17.6 mg 04/28/22 10:00 Sennosides Oral Liqd 8.8 Mg/5 Ml Oral Liqd FEEDTUBE Q12HR SEGUNDO Sodium Chloride 10 ml 04/03/22 10:00 04/27/22 21:59 Sodium Chloride 0.9% 10 Ml Flush Syringe IV 10 ml BID SEGUNDO Administration Sodium Chloride 10 ml 04/02/22 23:53 Sodium Chloride 0.9% 10 Ml Flush Syringe IV PRN PRN LINE FLUSH Nutrition/Malnutrition Assess - Dietary Evaluation Nutrition/Malnutrition Findings: Nutrition Notes Start: 04/04/22 13:13 Freq: Status: Active Protocol: Document 04/27/22 11:53 COLLEEN (Rec: 04/27/22 12:21 COLLEEN [id number]) Nutrition Notes Initial or Follow up Reassessment Current Diagnosis Coronary Artery Disease, Decubitus(Pressure Ulcer), Sepsis,Respiratory Failure, Malnutrition Other Pertinent Diagnosis HCAP, HFpEF, ALS, Pleural Effusion, R-Lung Collapse, .. . Current Diet TF-Vital AF 1.2 Inderjit @ 50 ml/hr (since D 04/15). Labs/Tests 04/27: Cl 93.2, CO2 37, Crea < 0.2, Glu 114. Pertinent Medications 04/27: Nutritionally unremarkable. Height 5 ft 4.8 in Weight 46.8 kg [place] Body Weight (kg) 61.27 BMI 17.2 Weight change and time frame No body weight change reported in 3 weeks. Weight Status Underweight Subjective/Other Information RD consult for routine F/U on TF tolerance/continuation. TF continues as prescribed, and well tolerated, according to RN notes. Pt continues on Mechanical ventilation, O2 saturation @ 96%, according to Physical Assessment Histroy notes. Pt continues to present constipation, according to Physical Assessment Histroy notes. 3 failed attempts to wean Pt from Mechanical Ventilation, Pt is back to previous settings in [facility], according to RN notes. Pt is pending authorization for LTAC placement, according to Progress notes. Percent of energy/protein needs met: Prescribed TF-Vital AF 1.2 Inderjit @ 50 ml/hr provides for energy/protein needs (1,450 Kcal/91 g) during LOS, 98% Kcal; 100% AA. Burn Absent Trauma Absent GI Symptoms Constipation Difficulty In Swallowing,Chewing Food Allergy No Skin Integrity/Comment Sacral open wound. Current % PO Other Minimum of two criteria No #1 Nutrition Diagnosis Inadequate oral intake Diagnosis Progress(for reassessment Continues documentation) Is patient on ventilator? Yes Is Patient Ambulatory and/or Out of Bed No REE-([place]-confined to bed) 5926.232 Calculation Used for Recommendations [place] Additional Notes Protein: 1.2-2 g/Kg IBW; 73- 122 g/day. Fluids: 1 ml/Kcal, or as per MD. Nutrition Intervention Nutrition Support: Continue TF-Vital AF 1.2 Inderjit @ 50 ml/hr. Flush: 80 ml water Q 4 hr, or as per MD. Kcal 1,450 Protein (gm) 91 Carbohydrates (gm) 134 Fat (gm) 65 Fluid (mL) 980 Fiber (gm) 6 % RDI: 98% Kcal; 100% AA. Goal #1 Provide at least 75% of energy /protein needs through Enteral Feeding during LOS. Follow-Up By: 05/04/22 Additional Comments Continue monitoring TF tolerance and BM. <DIXIE BROWN - Last Filed: 04/29/22 07:17> Assessment and Plan Assessment and plan: I saw and evaluated the patient. I agree with the findings and the plan of care as documented in the Nurse Practitioner's~note, with the following corrections and additions. Hospitalist Physical - Constitutional Vitals: Temp Pulse Resp BP Pulse Ox 98.9 F 105 H 14 82/49 97 04/29/22 04:00 04/29/22 06:00 04/29/22 06:00 04/29/22 06:00 04/29/22 06:00 HEART Score - HEART Score Troponin: Troponin T 0.031 ng/mL (0.00-0.029) H 04/08/22 17:47 Results - Labs CBC & Chem 7: 04/29/22 04:18 04/29/22 04:18 Labs: Laboratory Last Values WBC 13.5 K/mm3 (4.5-11.0) H 04/29/22 04:18 RBC 2.96 M/mm3 (3.65-5.03) L 04/29/22 04:18 Hgb 8.9 gm/dl (11.8-15.2) L 04/29/22 04:18 Hct 27.7 % (35.5-45.6) L 04/29/22 04:18 MCV 94 fl (84-94) 04/29/22 04:18 MCH 30 pg (28-32) 04/29/22 04:18 MCHC 32 % (32-34) 04/29/22 04:18 RDW 14.0 % (13.2-15.2) 04/29/22 04:18 Plt Count 348 K/mm3 (140-440) 04/29/22 04:18 Lymph % (Auto) 4.3 % (13.4-35.0) L 04/07/22 03:51 [place] % (Auto) 8.8 % (0.0-7.3) H 04/07/22 03:51 Eos % (Auto) 0.1 % (0.0-4.3) 04/07/22 03:51 Baso % (Auto) 0.2 % (0.0-1.8) 04/07/22 03:51 Lymph # (Auto) 0.6 K/mm3 (1.2-5.4) L 04/07/22 03:51 [place] # (Auto) 1.3 K/mm3 (0.0-0.8) H 04/07/22 03:51 Eos # (Auto) 0.0 K/mm3 (0.0-0.4) 04/07/22 03:51 Baso # (Auto) 0.0 K/mm3 (0.0-0.1) 04/07/22 03:51 Add Manual Diff Complete 04/02/22 19:39 Total Counted 100 04/02/22 19:39 Seg Neutrophils % 86.6 % (40.0-70.0) H 04/07/22 03:51 Seg Neuts % (Manual) 94.0 % (40.0-70.0) H 04/02/22 19:39 Band Neutrophils % 0 % 04/02/22 19:39 Lymphocytes % (Manual) 1.0 % (13.4-35.0) L 04/02/22 19:39 Reactive Lymphs % (Man) 0 % 04/02/22 19:39 Monocytes % (Manual) 5.0 % (0.0-7.3) 04/02/22 19:39 Eosinophils % (Manual) 0 % (0.0-4.3) 04/02/22 19:39 Basophils % (Manual) 0 % (0.0-1.8) 04/02/22 19:39 Metamyelocytes % 0 % 04/02/22 19:39 Myelocytes % 0 % 04/02/22 19:39 Promyelocytes % 0 % 04/02/22 19:39 Blast Cells % 0 % 04/02/22 19:39 Nucleated RBC % Not Reportable 04/02/22 19:39 Seg Neutrophils # 12.7 K/mm3 (1.8-7.7) H 04/07/22 03:51 Seg Neutrophils # Man 13.4 K/mm3 (1.8-7.7) H 04/02/22 19:39 Band Neutrophils # 0.0 K/mm3 04/02/22 19:39 Lymphocytes # (Manual) 0.1 K/mm3 (1.2-5.4) L 04/02/22 19:39 Abs React Lymphs (Man) 0.0 K/mm3 04/02/22 19:39 Monocytes # (Manual) 0.7 K/mm3 (0.0-0.8) 04/02/22 19:39 Eosinophils # (Manual) 0.0 K/mm3 (0.0-0.4) 04/02/22 19:39 Basophils # (Manual) 0.0 K/mm3 (0.0-0.1) 04/02/22 19:39 Metamyelocytes # 0.0 K/mm3 04/02/22 19:39 Myelocytes # 0.0 K/mm3 04/02/22 19:39 Promyelocytes # 0.0 K/mm3 04/02/22 19:39 Blast Cells # 0.0 K/mm3 04/02/22 19:39 WBC Morphology Not Reportable 04/02/22 19:39 Hypersegmented Neuts Not Reportable 04/02/22 19:39 Hyposegmented Neuts Not Reportable 04/02/22 19:39 Hypogranular Neuts Not Reportable 04/02/22 19:39 Smudge Cells Not Reportable 04/02/22 19:39 Toxic Granulation Not Reportable 04/02/22 19:39 Toxic Vacuolation Not Reportable 04/02/22 19:39 Dohle Bodies Not Reportable 04/02/22 19:39 Pelger-Huet Anomaly Not Reportable 04/02/22 19:39 Terry Rods Not Reportable 04/02/22 19:39 Platelet Estimate Consistent w auto 04/02/22 19:39 Clumped Platelets Not Reportable 04/02/22 19:39 Plt Clumps, EDTA Not Reportable 04/02/22 19:39 Large Platelets Not Reportable 04/02/22 19:39 Giant Platelets Not Reportable 04/02/22 19:39 Platelet Satelliting Not Reportable 04/02/22 19:39 Plt Morphology Comment Not Reportable 04/02/22 19:39 RBC Morphology Not Reportable 04/02/22 19:39 Dimorphic RBCs Not Reportable 04/02/22 19:39 Polychromasia Not Reportable 04/02/22 19:39 Hypochromasia Not Reportable 04/02/22 19:39 Poikilocytosis Not Reportable 04/02/22 19:39 Anisocytosis 1+ 04/02/22 19:39 Microcytosis Not Reportable 04/02/22 19:39 Macrocytosis Not Reportable 04/02/22 19:39 Spherocytes Not Reportable 04/02/22 19:39 Pappenheimer Bodies Not Reportable 04/02/22 19:39 Sickle Cells Not Reportable 04/02/22 19:39 Target Cells Not Reportable 04/02/22 19:39 Tear Drop Cells Not Reportable 04/02/22 19:39 Ovalocytes Not Reportable 04/02/22 19:39 Helmet Cells Not Reportable 04/02/22 19:39 [place] Bodies Not Reportable 04/02/22 19:39 [place] Rings Not Reportable 04/02/22 19:39 [place] Cells Not Reportable 04/02/22 19:39 Bite Cells Not Reportable 04/02/22 19:39 Crenated Cell Not Reportable 04/02/22 19:39 Elliptocytes Not Reportable 04/02/22 19:39 Acanthocytes (Spur) Not Reportable 04/02/22 19:39 Rouleaux Not Reportable 04/02/22 19:39 Hemoglobin C Crystals Not Reportable 04/02/22 19:39 Schistocytes Not Reportable 04/02/22 19:39 Malaria parasites Not Reportable 04/02/22 19:39 [place] Bodies Not Reportable 04/02/22 19:39 Hem Pathologist Commnt No 04/02/22 19:39 PT 13.6 Sec. (12.2-14.9) 04/13/22 04:30 INR 0.94 (0.87-1.13) 04/13/22 04:30 APTT 35.7 Sec. (24.2-36.6) 04/07/22 03:51 ABG pH 7.457 pH Units (7.350-7.450) H 04/25/22 09:00 ABG pCO2 61.7 mm Hg 04/25/22 09:00 ABG pO2 66.7 mm Hg (80.0-90.0) L 04/25/22 09:00 ABG HCO3 42.6 mmol/L (20.0-26.0) H 04/25/22 09:00 ABG O2 Saturation 95.7 % (95.0-99.0) 04/25/22 09:00 ABG O2 Content 20.0 (0.0-44) 04/25/22 09:00 ABG Base Excess 15.3 mmol/L (-2.0-3.0) H 04/25/22 09:00 ABG Hemoglobin 8.8 gm/dl (14.0-18.0) L 04/25/22 09:00 ABG Carboxyhemoglobin 1.3 % (0.0-5.0) 04/25/22 09:00 ABG Methemoglobin 0.4 % (0.0-1.5) 04/25/22 09:00 Oxyhemoglobin 94.1 % (95.0-99.0) L 04/25/22 09:00 FiO2 35 % 04/25/22 09:00 Sodium 138 mmol/L (137-145) 04/29/22 04:18 Potassium 4.3 mmol/L (3.6-5.0) 04/29/22 04:18 Chloride 95.2 mmol/L (98-107) L 04/29/22 04:18 Carbon Dioxide 38 mmol/L (22-30) H 04/29/22 04:18 Anion Gap 9 mmol/L 04/29/22 04:18 BUN 19 mg/dL (9-20) 04/29/22 04:18 Creatinine < 0.2 mg/dL (0.8-1.3) L 04/29/22 04:18 Estimated GFR > 60 ml/min 04/29/22 04:18 BUN/Creatinine Ratio 95 % 04/29/22 04:18 Glucose 116 mg/dL (75-100) H 04/29/22 04:18 POC Glucose 128 mg/dL (70-105) H 04/20/22 11:40 Lactic Acid 1.90 mmol/L (0.7-2.0) 04/02/22 19:39 Calcium 8.7 mg/dL (8.4-10.2) 04/29/22 04:18 Phosphorus 3.80 mg/dL (2.5-4.5) 04/29/22 04:18 Magnesium 1.80 mg/dL (1.7-2.3) 04/29/22 04:18 Total Bilirubin 0.80 mg/dL (0.1-1.2) 04/02/22 19:39 AST 15 units/L (5-40) 04/02/22 19:39 ALT 9 units/L (7-56) 04/02/22 19:39 Alkaline Phosphatase 43 units/L (35-129) 04/02/22 19:39 Total Creatine Kinase 46 units/L (55-170) L 04/08/22 17:47 CK-MB (CK-2) 2.6 ng/mL (0.0-4.0) 04/08/22 17:47 CK-MB (CK-2) Rel Index 5.6 (0-4) H 04/08/22 17:47 Troponin T 0.031 ng/mL (0.00-0.029) H 04/08/22 17:47 C-Reactive Protein 31.60 mg/dL (0.00-1.30) H 04/04/22 04:18 Total Protein 4.6 g/dL (6.3-8.2) L 04/02/22 19:39 Albumin 2.7 g/dL (3.9-5) L 04/02/22 19:39 Albumin/Globulin Ratio 1.4 % 04/02/22 19:39 Triglycerides 80 mg/dL (2-149) 04/02/22 19:39 Cholesterol 94 mg/dL (50-199) 04/02/22 19:39 LDL Cholesterol Direct 27 mg/dL (50-130) L 04/02/22 19:39 HDL Cholesterol 47 mg/dL (40-59) 04/02/22 19:39 Cholesterol/HDL Ratio 2.00 % 04/02/22 19:39 Procalcitonin 0.08 ng/mL (<0.15) 04/04/22 04:18 Urine Color [place] (Yellow) 04/05/22 17:45 Urine Turbidity Cloudy (Clear) 04/05/22 17:45 Urine pH 5.0 (5.0-7.0) 04/05/22 17:45 Ur Specific [place] 1.021 (1.003-1.030) 04/05/22 17:45 Urine Protein 30 mg/dl mg/dL (Negative) 04/05/22 17:45 Urine Glucose (UA) Neg mg/dL (Negative) 04/05/22 17:45 Urine Ketones Tr mg/dL (Negative) 04/05/22 17:45 Urine Blood Sm (Negative) 04/05/22 17:45 Urine Nitrite Neg (Negative) 04/05/22 17:45 Urine Bilirubin Neg (Negative) 04/05/22 17:45 Urine Urobilinogen < 2.0 mg/dL (<2.0) 04/05/22 17:45 Ur Leukocyte Esterase Tr (Negative) 04/05/22 17:45 Urine WBC (Auto) 8.0 /HPF (0.0-6.0) H 04/05/22 17:45 Urine RBC (Auto) 3.0 /HPF (0.0-6.0) 04/05/22 17:45 U Epithel Cells (Auto) 2.0 /HPF (0-13.0) 04/05/22 17:45 Urine Bacteria (Auto) 1+ /HPF (Negative) 04/02/22 Unknown Hyaline Casts 1 /LPF 04/05/22 17:45 Urine Mucus 3+ /HPF 04/05/22 17:45 Nasal Screen MRSA (PCR) Negative (Negative) 04/05/22 12:37 Vancomycin Trough 6.0 ug/mL (5.0-20.0) 04/05/22 18:53 Coronavirus (PCR) Negative (Negative) 04/07/22 14:52 Perez/IV: Voiding Method Condom Catheter Active Medications - Current Medications Current Medications: Generic Name Dose Route Start Last Admin Trade Name Freq PRN Reason Stop Dose Admin Acetaminophen 650 mg 04/02/22 23:53 04/21/22 16:23 Acetaminophen 325 Mg Tab PO 650 mg Q6H PRN Administration Pain MILD(1-3)/Fever >100.5/FAITH Acetylcysteine 200 mg 04/21/22 16:00 04/28/22 23:59 Acetylcysteine 20% 200 Mg/1 Ml *For Inhalation Use* INHALATION 200 mg Q8HRT SEGUNDO Administration Albuterol 2.5 mg 04/06/22 16:00 04/28/22 23:59 Albuterol 2.5 Mg/3 Ml Nebu IH 2.5 mg Q8HRT SEGUNDO Administration Bisacodyl 10 mg 04/07/22 09:44 04/12/22 10:06 Bisacodyl 10 Mg Rect Supp AL 10 mg QDAY PRN Administration Constipation Dextrose 50 ml 04/06/22 17:54 Dextrose 50% In Water (25gm) 50 Ml Syringe IV Q30MIN PRN Hypoglycemia Protocol Docusate Sodium 100 mg 04/28/22 10:00 04/28/22 21:14 Docusate Sodium 100 Mg/10 Ml Oral Liqd FEEDTUBE 100 mg BID SEGUNDO Administration Famotidine 20 mg 04/06/22 10:00 04/28/22 21:14 Famotidine 20 Mg Tab FEEDTUBE 20 mg BID ESGUNDO Administration Fentanyl 50 mcg 04/04/22 15:56 04/29/22 05:23 Fentanyl 100 Mcg/2 Ml Inj IV 50 mcg Q2HR PRN Administration For CPOT of greater than 3 Heparin Sodium (Porcine) 5,000 unit 04/03/22 06:00 04/29/22 05:23 Heparin 5,000 Unit/1 Ml Vial SUB-Q 5,000 unit Q8HR SEGUNDO Administration Insulin Human Regular 0 units 04/06/22 18:00 04/29/22 01:09 Insulin Regular, Human 100 Units/1 Ml SUB-Q Not Given Q6H [facility] Protocol Magnesium Hydroxide 30 ml 04/02/22 23:53 Magnesium Hydroxide (Mom) Oral Liqd Udc PO Q4H PRN Constipation Metoprolol Tartrate 25 mg 04/16/22 18:00 04/29/22 05:22 Metoprolol Tartrate 25 Mg Tab FEEDTUBE 25 mg Q6HR SEGUNDO Administration Ondansetron HCl 4 mg 04/02/22 23:53 Ondansetron 4 Mg/2 Ml Inj IV Q8H PRN Nausea And Vomiting Polyethylene Glycol 17 gm 04/08/22 10:00 04/28/22 09:24 Polyethylene Glycol 3350 17 Gm Powder PO 17 gm QDAY SEGUNDO Administration Quetiapine Fumarate 50 mg 04/28/22 10:00 04/28/22 21:14 Quetiapine 25 Mg Tab FEEDTUBE 50 mg BID SEGUNDO Administration Senna 17.6 mg 04/28/22 10:00 04/28/22 21:14 Sennosides Oral Liqd 8.8 Mg/5 Ml Oral Liqd FEEDTUBE 17.6 mg Q12HR SEGUNDO Administration Sodium Chloride 10 ml 04/03/22 10:00 04/28/22 21:14 Sodium Chloride 0.9% 10 Ml Flush Syringe IV 10 ml BID SEGUNDO Administration Sodium Chloride 10 ml 04/02/22 23:53 Sodium Chloride 0.9% 10 Ml Flush Syringe IV PRN PRN LINE FLUSH Nutrition/Malnutrition Assess - Dietary Evaluation Nutrition/Malnutrition Findings: Nutrition Notes Start: 04/04/22 13:13 Freq: Status: Active Protocol: Document 04/27/22 11:53 COLLEEN (Rec: 04/27/22 12:21 COLLEEN [id number]) Nutrition Notes Initial or Follow up Reassessment Current Diagnosis Coronary Artery Disease, Decubitus(Pressure Ulcer), Sepsis,Respiratory Failure, Malnutrition Other Pertinent Diagnosis HCAP, HFpEF, ALS, Pleural Effusion, R-Lung Collapse, .. . Current Diet TF-Vital AF 1.2 Inderjit @ 50 ml/hr (since D 04/15). Labs/Tests 04/27: Cl 93.2, CO2 37, Crea < 0.2, Glu 114. Pertinent Medications 04/27: Nutritionally unremarkable. Height 5 ft 4.8 in Weight 46.8 kg [place] Body Weight (kg) 61.27 BMI 17.2 Weight change and time frame No body weight change reported in 3 weeks. Weight Status Underweight Subjective/Other Information RD consult for routine F/U on TF tolerance/continuation. TF continues as prescribed, and well tolerated, according to RN notes. Pt continues on Mechanical ventilation, O2 saturation @ 96%, according to Physical Assessment Histroy notes. Pt continues to present constipation, according to Physical Assessment Histroy notes. 3 failed attempts to wean Pt from Mechanical Ventilation, Pt is back to previous settings in [facility], according to RN notes. Pt is pending authorization for LTAC placement, according to Progress notes. Percent of energy/protein needs met: Prescribed TF-Vital AF 1.2 Inderjit @ 50 ml/hr provides for energy/protein needs (1,450 Kcal/91 g) during LOS, 98% Kcal; 100% AA. Burn Absent Trauma Absent GI Symptoms Constipation Difficulty In Swallowing,Chewing Food Allergy No Skin Integrity/Comment Sacral open wound. Current % PO Other Minimum of two criteria No #1 Nutrition Diagnosis Inadequate oral intake Diagnosis Progress(for reassessment Continues documentation) Is patient on ventilator? Yes Is Patient Ambulatory and/or Out of Bed No REE-([facility]-confined to bed) [phone] Calculation Used for Recommendations [facility] Additional Notes Protein: 1.2-2 g/Kg IBW; 73- 122 g/day. Fluids: 1 ml/Kcal, or as per MD. Nutrition Intervention Nutrition Support: Continue TF-Vital AF 1.2 Inderjit @ 50 ml/hr. Flush: 80 ml water Q 4 hr, or as per MD. Kcal 1,450 Protein (gm) 91 Carbohydrates (gm) 134 Fat (gm) 65 Fluid (mL) 980 Fiber (gm) 6 % RDI: 98% Kcal; 100% AA. Goal #1 Provide at least 75% of energy /protein needs through Enteral Feeding during LOS. Follow-Up By: 05/04/22 Additional Comments Continue monitoring TF tolerance and BM.
[2022-04-28] MEDS: SENNOSIDES ORAL LIQD 8.8 MG/5 ML ORAL LIQD FEEDTUBE SCH ×2 (09:24→21:14)
[2022-04-28] MEDS: FAMOTIDINE 20 MG TAB FEEDTUBE SCH ×2 (09:24→21:14)
[2022-04-28] MEDS: POLYETHYLENE GLYCOL 3350 17 GM POWDER PO SCH (09:24)
[2022-04-28] MEDS: DOCUSATE SODIUM 100 MG/10 ML ORAL LIQD FEEDTUBE SCH ×2 (09:24→21:14)
[2022-04-28] MEDS: QUEtiapine 25 MG TAB FEEDTUBE SCH ×2 (09:25→21:14)
--- NOTE | 2022-04-28 14:24 | Progress Note ---
Assessment and Plan - Patient Problems (1) Respiratory failure Current Visit: Yes Status: Acute Plan to address problem: Patient presented with acute respiratory failure, with chest x-ray showing total whiteout of the right lung, due to acute pneumonia, large right pleural effusion and collapse of the right lung. Continue supportive management, antibiotics. (2) Acute coronary syndrome Current Visit: Yes Status: Acute Plan to address problem: The patient's interval ECGs while in the ICU showed dynamic changes of anterior wall ischemia or infarction. Patient has severe comorbidities including progressive total paralysis of ALS, and intercurrent respiratory failure with large right pleural effusion and total collapse of the right lung. Currently assessed as a poor candidate for aggressive cardiac management due to the multiple severe acute and chronic comorbidities. He has been placed on conservative, empiric coronary artery disease medical therapy. A trach PEG procedure has been completed, discharge planning for intermediate facility placement is in progress. Subjective Date of service: 04/28/22 Principal diagnosis: Ac and ch hypercapnic and hypoxemic Resp Failure; ALS; HCAP; Sepsis; NSTEMI Interval history: Patient is sedated, on the ventilator via tracheostomy. 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 Objective Vital Signs Temp Pulse Pulse Resp Resp BP Pulse Ox 04/28/22 13:00 109 H 15 111/66 100 04/28/22 12:25 105 H 104/64 04/28/22 12:00 96 H 14 95/55 100 04/28/22 11:44 100 H 95/55 100 04/28/22 11:43 99.1 F 04/28/22 11:00 100 H 14 99/55 100 04/28/22 10:00 103 H 15 102/58 99 04/28/22 09:00 96 H 15 108/69 98 04/28/22 08:15 100 04/28/22 08:00 98.2 F 93 H 14 102/65 97 04/28/22 07:23 93 H 94 H 14 105/63 100 04/28/22 07:00 93 H 14 105/63 96 04/28/22 06:00 100 H 20 119/77 98 04/28/22 05:55 98 H 115/70 04/28/22 05:00 95 H 15 110/66 97 04/28/22 04:03 92 H 114/71 100 04/28/22 04:00 98.8 F 99 H 17 114/71 97 04/28/22 03:34 105 H 14 04/28/22 03:00 100 H 14 111/70 99 04/28/22 02:34 91 H 92/66 04/28/22 02:01 108/71 96 04/28/22 01:00 93 H 14 101/66 98 04/28/22 00:00 100.5 F H 96 H 14 87/59 97 04/27/22 23:00 88 14 91/57 98 04/27/22 22:59 91 H 14 96/61 97 04/27/22 22:00 92 H 14 103/67 97 04/27/22 21:00 100 H 14 113/76 96 04/27/22 20:00 97 H 14 113/76 91 04/27/22 19:53 100 F H 100 H 04/27/22 19:33 95 04/27/22 19:00 98 H 14 104/57 99 04/27/22 18:00 91 H 14 101/64 95 04/27/22 17:04 108 H 123/76 04/27/22 17:00 107 H 14 123/76 96 04/27/22 16:26 95 H 101 H 15 127/87 100 04/27/22 16:05 100 04/27/22 16:00 98.2 F 104 H 14 114/74 95 04/27/22 15:00 104 H 14 114/66 94 Pulse Ox 04/28/22 13:00 04/28/22 12:25 04/28/22 12:00 04/28/22 11:44 04/28/22 11:43 04/28/22 11:00 04/28/22 10:00 04/28/22 09:00 04/28/22 08:15 04/28/22 08:00 04/28/22 07:23 100 04/28/22 07:00 04/28/22 06:00 04/28/22 05:55 04/28/22 05:00 04/28/22 04:03 04/28/22 04:00 04/28/22 03:34 04/28/22 03:00 04/28/22 02:34 04/28/22 02:01 04/28/22 01:00 04/28/22 00:00 100 04/27/22 23:00 04/27/22 22:59 04/27/22 22:00 04/27/22 21:00 04/27/22 20:00 04/27/22 19:53 04/27/22 19:33 04/27/22 19:00 04/27/22 18:00 04/27/22 17:04 04/27/22 17:00 04/27/22 16:26 100 04/27/22 16:05 04/27/22 16:00 04/27/22 15:00 - Physical Examination General: Other (On the vent via tracheostomy) HEENT: Positive: PERRL, Normocephaly, Other (ET-tube in place) Neck: Positive: neck supple, trachea midline (intubated). Negative: JVD/HJR Cardiac: Positive: Reg Rate and Rhythm Lungs: Positive: Decreased Breath Sounds Neuro: Positive: Weakness (Generalized myopathy, patient with ALS), Other (On the vent via tracheostomy) Abdomen: Positive: Soft Skin: Positive: Clear Extremities: Present: Other (TR.EDEMA). Absent: edema (NO) - Allied health notes Allied health notes reviewed: nursing
[2022-04-29] MEDS: METOPROLOL TARTRATE 25 MG TAB FEEDTUBE SCH ×4 (00:59→17:00)
[2022-04-29] MEDS: INSULIN REGULAR, HUMAN 100 UNITS/1 ML SUB-Q SCH ×4 (01:09→17:05)
[2022-04-29] MEDS: fentaNYL 100 MCG/2 ML INJ IV PRN ×3 (01:11→21:40)
[2022-04-29 05:11] LABS: Hematocrit 27.7 % (35.5-45.6); Hemoglobin 8.9 gm/dl (11.8-15.2); Mean Corpuscular HGB Conc 32 % (32-34); Mean Corpuscular Volume 94 fl (84-94); Platelet Count 348 K/mm3 (140-440); Red Blood Count 2.96 M/mm3 (3.65-5.03)
[2022-04-29] MEDS: HEPARIN 5,000 UNIT/1 ML VIAL SUB-Q SCH ×3 (05:23→21:31)
[2022-04-29 05:30] LABS: Blood Urea Nitrogen 19 mg/dL (9-20); Calcium 8.7 mg/dL (8.4-10.2); Hemolysis Index 3
[2022-04-29 05:31] LABS: BUN/Creatinine Ratio 95
[2022-04-29] MEDS: ACETYLCYSTEINE 20% 200 MG/1 ML *FOR INHALATION USE INHALATION SCH ×3 (08:28→23:30)
[2022-04-29] MEDS: ALBUTEROL 2.5 MG/3 ML NEBU IH SCH ×3 (08:28→23:30)
[2022-04-29] MEDS: POLYETHYLENE GLYCOL 3350 17 GM POWDER PO SCH (10:12)
[2022-04-29] MEDS: FAMOTIDINE 20 MG TAB FEEDTUBE SCH (10:12)
[2022-04-29] MEDS: QUEtiapine 25 MG TAB FEEDTUBE SCH ×2 (10:12→21:30)
[2022-04-29] MEDS: DOCUSATE SODIUM 100 MG/10 ML ORAL LIQD FEEDTUBE SCH ×2 (10:13→21:30)
[2022-04-29] MEDS: SENNOSIDES ORAL LIQD 8.8 MG/5 ML ORAL LIQD FEEDTUBE SCH ×2 (10:13→21:30)
--- NOTE | 2022-04-29 10:28 | Progress Note ---
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 Right lung hemiopacification- Atelectasis s/p Bronchoscopy Oropharyngeal dysphagia s/p PEG Protein calorie malnutrition Acute Bronchopneumonia HCAP Hypotension NSTEMI H/o Amyotrophic Lateral Sclerosis Nonverbal at Baseline Trach care, airway clearance, Continue with medical management of atelectasis- continue with bronchodilators and chest PT Decrease sedation and anxieolytics CXR,ABG as clinically indicated Discharge planning -Titrate supplemental oxygen to keep SpO2 89-92% -VAP bundle addressed, aspiration precautions HOB >40 -Lung protective strategies -Daily assessment for readiness to wean. -Monitoring renal function, hemodynamics and electrolyte profile -Accuchecks with glycemic control. target blood glucose 140-180 mg/dL. Avoid hypoglycemia -Continue enteric nutritional support, bowel regimen -VTE prophylaxis- Heparin -Avoid nephrotoxins and renally dose all medications -Stress ulcer prophylaxis- Famotidine -Mobility, frequent turning, off loading per facility protocol to prevent pr essure ulcers -Maintain sleep wake cycle, avoid benzodiazepines. -Limit delirium CONDITION:CRITICAL PROGNOSIS: GUARDED CODE STATUS; FULL CODE The high probability of a clinically significant, sudden or life threatening deterioration of the respiratory, cardiovascular, neurology system required my full and direct attention, intervention and personal management. The aggregate critical care time was [33] minutes. 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 Vitals, labs, medications, chart and imaging reviewed. Discussed with respiratory and nursing care staff. s/p trach and PEG. On PEEP 10 and FIO2 45 % No reported fevers, no vomiting, no diarrhea Objective Vital Signs - 12hr 04/28/22 04/28/22 04/29/22 23:00 23:54 00:00 Temperature 99.5 F Pulse Rate 105 H 106 H 103 H Pulse Rate [ 108 H Anterior Bilateral Throughout] Pulse Rate [ Bilateral Throughout] Pulse Rate [ From Monitor] Respiratory 19 14 Rate Respiratory 14 Rate [Anterior Bilateral Throughout] Respiratory Rate [Bilateral Throughout] Blood Pressure 110/75 107/70 104/69 O2 Sat by Pulse 93 94 99 Oximetry O2 Sat by Pulse Oximetry [ Assessment] 04/29/22 04/29/22 04/29/22 01:00 02:00 03:00 Temperature Pulse Rate 106 H 108 H 109 H Pulse Rate [ Anterior Bilateral Throughout] Pulse Rate [ Bilateral Throughout] Pulse Rate [ From Monitor] Respiratory 17 14 14 Rate Respiratory Rate [Anterior Bilateral Throughout] Respiratory Rate [Bilateral Throughout] Blood Pressure 116/68 107/67 112/72 O2 Sat by Pulse 95 98 94 Oximetry O2 Sat by Pulse Oximetry [ Assessment] 04/29/22 04/29/22 04/29/22 03:58 04:00 04:05 Temperature 98.9 F Pulse Rate 110 H 111 H Pulse Rate [ Anterior Bilateral Throughout] Pulse Rate [ Bilateral Throughout] Pulse Rate [ From Monitor] Respiratory 17 Rate Respiratory Rate [Anterior Bilateral Throughout] Respiratory Rate [Bilateral Throughout] Blood Pressure 107/75 116/75 O2 Sat by Pulse 94 95 Oximetry O2 Sat by Pulse 95 Oximetry [ Assessment] 04/29/22 04/29/22 04/29/22 05:00 05:22 05:23 Temperature Pulse Rate 112 H 109 H Pulse Rate [ Anterior Bilateral Throughout] Pulse Rate [ Bilateral Throughout] Pulse Rate [ From Monitor] Respiratory 14 19 Rate Respiratory Rate [Anterior Bilateral Throughout] Respiratory Rate [Bilateral Throughout] Blood Pressure 116/73 116/73 O2 Sat by Pulse 84 Oximetry O2 Sat by Pulse Oximetry [ Assessment] 04/29/22 04/29/22 04/29/22 06:00 07:00 08:00 Temperature 100 F H Pulse Rate 105 H 104 H 107 H Pulse Rate [ 112 H Anterior Bilateral Throughout] Pulse Rate [ 112 H Bilateral Throughout] Pulse Rate [ From Monitor] Respiratory 14 14 15 Rate Respiratory 17 Rate [Anterior Bilateral Throughout] Respiratory 14 Rate [Bilateral Throughout] Blood Pressure 82/49 92/56 101/59 O2 Sat by Pulse 97 100 99 Oximetry O2 Sat by Pulse Oximetry [ Assessment] 04/29/22 04/29/22 04/29/22 08:10 08:37 09:00 Temperature Pulse Rate 112 H 112 H Pulse Rate [ Anterior Bilateral Throughout] Pulse Rate [ Bilateral Throughout] Pulse Rate [ 112 H From Monitor] Respiratory 14 17 Rate Respiratory Rate [Anterior Bilateral Throughout] Respiratory Rate [Bilateral Throughout] Blood Pressure 114/68 O2 Sat by Pulse 99 96 Oximetry O2 Sat by Pulse 97 Oximetry [ Assessment] 04/29/22 10:00 Temperature Pulse Rate 119 H Pulse Rate [ Anterior Bilateral Throughout] Pulse Rate [ Bilateral Throughout] Pulse Rate [ From Monitor] Respiratory 14 Rate Respiratory Rate [Anterior Bilateral Throughout] Respiratory Rate [Bilateral Throughout] Blood Pressure 113/79 O2 Sat by Pulse 84 Oximetry O2 Sat by Pulse Oximetry [ Assessment] Constitutional: alert, appears uncomfortable, other (trach to vent, in bed with mildly increased respiratory effort at rest) Eyes: non-icteric ENT: oropharynx moist, other (+ midline tracheostomy) Neck: supple, no lymphadenopathy, no JVD Effort: mildly labored Ascultation: Bilateral: diminished breath sounds (bases), rhonchi Percussion: Bilateral: not dull Cardiovascular: regular rate and rhythm, other (S1,S2) Gastrointestinal: normoactive bowel sounds, soft, non-tender, non-distended Integumentary: normal Extremities: no cyanosis, no edema, pink and warm, pulses normal Neurologic: pupils equal and round, other (functional quadriplegia) Psychiatric: anxious (affect), other CBC and BMP: 05/02/22 04:29 04/29/22 04:18 ABG, PT/INR, D-dimer: ABG ABG pH 7.457 pH Units (7.350-7.450) H 04/25/22 09:00 ABG pCO2 61.7 mm Hg 04/25/22 09:00 ABG pO2 66.7 mm Hg (80.0-90.0) L 04/25/22 09:00 ABG O2 Saturation 95.7 % (95.0-99.0) 04/25/22 09:00 PT/INR, D-dimer PT 13.6 Sec. (12.2-14.9) 04/13/22 04:30 INR 0.94 (0.87-1.13) 04/13/22 04:30 Abnormal lab findings: Abnormal Labs 04/02/22 04/02/22 04/02/22 19:39 19:39 19:39 WBC 14.3 H RBC Hgb Hct MCV 96 H Plt Count 104 L Lymph % (Auto) [place] % (Auto) Lymph # (Auto) [place] # (Auto) Seg Neutrophils % Seg Neuts % (Manual) 94.0 H Lymphocytes % (Manual) 1.0 L Seg Neutrophils # Seg Neutrophils # Man 13.4 H Lymphocytes # (Manual) 0.1 L PT 15.9 H INR 1.14 H ABG pH ABG pO2 ABG HCO3 ABG O2 Saturation ABG Base Excess ABG Hemoglobin Oxyhemoglobin Sodium 151 H Potassium Chloride Carbon Dioxide BUN Creatinine 0.5 L Glucose POC Glucose Calcium 8.2 L Phosphorus Magnesium 1.60 L Total Creatine Kinase CK-MB (CK-2) Rel Index Troponin T 0.048 H C-Reactive Protein Total Protein 4.6 L Albumin 2.7 L LDL Cholesterol Direct 27 L Urine WBC (Auto) 04/02/22 04/03/22 04/03/22 19:42 05:14 06:30 WBC RBC Hgb Hct MCV Plt Count Lymph % (Auto) [place] % (Auto) Lymph # (Auto) [place] # (Auto) Seg Neutrophils % Seg Neuts % (Manual) Lymphocytes % (Manual) Seg Neutrophils # Seg Neutrophils # Man Lymphocytes # (Manual) PT INR ABG pH 7.471 H 7.496 H ABG pO2 47.8 L 91.0 H ABG HCO3 30.6 H ABG O2 Saturation 94.4 L ABG Base Excess 6.2 H ABG Hemoglobin 11.0 L 12.8 L Oxyhemoglobin 93.1 L Sodium 149 H Potassium 3.4 L Chloride Carbon Dioxide BUN Creatinine 0.4 L Glucose POC Glucose Calcium Phosphorus Magnesium Total Creatine Kinase CK-MB (CK-2) Rel Index Troponin T C-Reactive Protein Total Protein Albumin LDL Cholesterol Direct Urine WBC (Auto) 04/04/22 04/04/22 04/04/22 04:18 04:18 05:50 WBC 11.8 H RBC Hgb Hct MCV Plt Count 132 L Lymph % (Auto) [place] % (Auto) Lymph # (Auto) [place] # (Auto) Seg Neutrophils % Seg Neuts % (Manual) Lymphocytes % (Manual) Seg Neutrophils # Seg Neutrophils # Man Lymphocytes # (Manual) PT INR ABG pH 7.517 H ABG pO2 115.5 H ABG HCO3 29.9 H ABG O2 Saturation ABG Base Excess 6.7 H ABG Hemoglobin 12.3 L Oxyhemoglobin Sodium Potassium 3.5 L Chloride Carbon Dioxide 31 H BUN Creatinine 0.3 L Glucose 153 H POC Glucose Calcium Phosphorus 1.40 L Magnesium 1.50 L Total Creatine Kinase CK-MB (CK-2) Rel Index Troponin T C-Reactive Protein 31.60 H Total Protein Albumin LDL Cholesterol Direct Urine WBC (Auto) 04/05/22 04/05/22 04/05/22 02:50 05:25 11:28 WBC RBC Hgb Hct MCV Plt Count Lymph % (Auto) [place] % (Auto) Lymph # (Auto) [place] # (Auto) Seg Neutrophils % Seg Neuts % (Manual) Lymphocytes % (Manual) Seg Neutrophils # Seg Neutrophils # Man Lymphocytes # (Manual) PT INR ABG pH 7.455 H ABG pO2 50.7 L ABG HCO3 30.5 H ABG O2 Saturation 89.4 L ABG Base Excess 5.9 H ABG Hemoglobin 11.8 L Oxyhemoglobin 88.2 L Sodium Potassium Chloride Carbon Dioxide 32 H BUN Creatinine 0.2 L Glucose 110 H POC Glucose 124 H Calcium 7.9 L Phosphorus Magnesium Total Creatine Kinase CK-MB (CK-2) Rel Index Troponin T C-Reactive Protein Total Protein Albumin LDL Cholesterol Direct Urine WBC (Auto) 04/05/22 04/05/22 04/06/22 17:45 Unknown 04:00 WBC RBC 3.55 L Hgb 11.1 L 11.5 L Hct 33.2 L 35.1 L MCV Plt Count 113 L 114 L Lymph % (Auto) [place] % (Auto) Lymph # (Auto) [place] # (Auto) Seg Neutrophils % Seg Neuts % (Manual) Lymphocytes % (Manual) Seg Neutrophils # Seg Neutrophils # Man Lymphocytes # (Manual) PT INR ABG pH ABG pO2 ABG HCO3 ABG O2 Saturation ABG Base Excess ABG Hemoglobin Oxyhemoglobin Sodium Potassium Chloride Carbon Dioxide BUN Creatinine Glucose POC Glucose Calcium Phosphorus Magnesium Total Creatine Kinase CK-MB (CK-2) Rel Index Troponin T C-Reactive Protein Total Protein Albumin LDL Cholesterol Direct Urine WBC (Auto) 8.0 H 04/06/22 04/06/22 04/07/22 04:00 08:30 00:04 WBC RBC Hgb Hct MCV Plt Count Lymph % (Auto) [place] % (Auto) Lymph # (Auto) [place] # (Auto) Seg Neutrophils % Seg Neuts % (Manual) Lymphocytes % (Manual) Seg Neutrophils # Seg Neutrophils # Man Lymphocytes # (Manual) PT INR ABG pH ABG pO2 60.8 L ABG HCO3 30.5 H ABG O2 Saturation 93.3 L ABG Base Excess 4.9 H ABG Hemoglobin 12.4 L Oxyhemoglobin 92.1 L Sodium Potassium 3.0 L Chloride Carbon Dioxide BUN Creatinine < 0.2 L Glucose 130 H POC Glucose 117 H Calcium 8.1 L Phosphorus Magnesium Total Creatine Kinase CK-MB (CK-2) Rel Index Troponin T C-Reactive Protein Total Protein Albumin LDL Cholesterol Direct Urine WBC (Auto) 04/07/22 04/07/22 04/07/22 03:51 03:51 03:51 WBC 14.6 H RBC 3.57 L Hgb 11.1 L Hct 33.2 L MCV Plt Count 118 L Lymph % (Auto) 4.3 L [place] % (Auto) 8.8 H Lymph # (Auto) 0.6 L [place] # (Auto) 1.3 H Seg Neutrophils % 86.6 H Seg Neuts % (Manual) Lymphocytes % (Manual) Seg Neutrophils # 12.7 H Seg Neutrophils # Man Lymphocytes # (Manual) PT 15.2 H INR ABG pH ABG pO2 ABG HCO3 ABG O2 Saturation ABG Base Excess ABG Hemoglobin Oxyhemoglobin Sodium 133 L Potassium Chloride 96.0 L Carbon Dioxide 31 H BUN Creatinine 0.2 L Glucose 130 H POC Glucose Calcium 8.0 L Phosphorus Magnesium Total Creatine Kinase CK-MB (CK-2) Rel Index Troponin T C-Reactive Protein Total Protein Albumin LDL Cholesterol Direct Urine WBC (Auto) 04/07/22 04/07/22 04/08/22 04:25 09:10 04:49 WBC 16.1 H RBC 3.54 L Hgb 10.9 L Hct 33.3 L MCV Plt Count Lymph % (Auto) [place] % (Auto) Lymph # (Auto) [place] # (Auto) Seg Neutrophils % Seg Neuts % (Manual) Lymphocytes % (Manual) Seg Neutrophils # Seg Neutrophils # Man Lymphocytes # (Manual) PT INR ABG pH ABG pO2 71.0 L 63.4 L ABG HCO3 31.5 H 40.0 H ABG O2 Saturation 94.9 L ABG Base Excess 5.9 H 13.6 H ABG Hemoglobin 11.3 L 9.0 L Oxyhemoglobin 93.6 L Sodium Potassium Chloride Carbon Dioxide BUN Creatinine Glucose POC Glucose Calcium Phosphorus Magnesium Total Creatine Kinase CK-MB (CK-2) Rel Index Troponin T C-Reactive Protein Total Protein Albumin LDL Cholesterol Direct Urine WBC (Auto) 04/08/22 04/08/22 04/08/22 04:49 09:53 10:25 WBC RBC Hgb Hct MCV Plt Count Lymph % (Auto) [place] % (Auto) Lymph # (Auto) [place] # (Auto) Seg Neutrophils % Seg Neuts % (Manual) Lymphocytes % (Manual) Seg Neutrophils # Seg Neutrophils # Man Lymphocytes # (Manual) PT INR ABG pH ABG pO2 ABG HCO3 34.7 H ABG O2 Saturation ABG Base Excess 7.9 H ABG Hemoglobin 11.0 L Oxyhemoglobin Sodium 136 L Potassium Chloride 97.7 L Carbon Dioxide 33 H BUN Creatinine 0.2 L Glucose 155 H POC Glucose Calcium Phosphorus Magnesium Total Creatine Kinase CK-MB (CK-2) Rel Index Troponin T 0.030 H C-Reactive Protein Total Protein Albumin LDL Cholesterol Direct Urine WBC (Auto) 04/08/22 04/08/22 04/08/22 11:19 17:47 18:06 WBC RBC Hgb Hct MCV Plt Count Lymph % (Auto) [place] % (Auto) Lymph # (Auto) [place] # (Auto) Seg Neutrophils % Seg Neuts % (Manual) Lymphocytes % (Manual) Seg Neutrophils # Seg Neutrophils # Man Lymphocytes # (Manual) PT INR ABG pH ABG pO2 ABG HCO3 ABG O2 Saturation ABG Base Excess ABG Hemoglobin Oxyhemoglobin Sodium Potassium Chloride Carbon Dioxide BUN Creatinine Glucose POC Glucose 121 H Calcium Phosphorus Magnesium Total Creatine Kinase 31 L 46 L CK-MB (CK-2) Rel Index 6.4 H 5.6 H Troponin T 0.030 H 0.031 H C-Reactive Protein Total Protein Albumin LDL Cholesterol Direct Urine WBC (Auto) 04/09/22 04/09/22 04/09/22 04:35 04:35 11:24 WBC 11.5 H RBC 3.16 L Hgb 9.9 L Hct 29.4 L MCV Plt Count 131 L Lymph % (Auto) [place] % (Auto) Lymph # (Auto) [place] # (Auto) Seg Neutrophils % Seg Neuts % (Manual) Lymphocytes % (Manual) Seg Neutrophils # Seg Neutrophils # Man Lymphocytes # (Manual) PT INR ABG pH ABG pO2 ABG HCO3 ABG O2 Saturation ABG Base Excess ABG Hemoglobin Oxyhemoglobin Sodium Potassium Chloride 97.1 L Carbon Dioxide 35 H BUN Creatinine < 0.2 L Glucose 145 H POC Glucose 147 H Calcium Phosphorus Magnesium Total Creatine Kinase CK-MB (CK-2) Rel Index Troponin T C-Reactive Protein Total Protein Albumin LDL Cholesterol Direct Urine WBC (Auto) 04/09/22 04/09/22 04/09/22 13:00 17:32 23:48 WBC RBC Hgb Hct MCV Plt Count Lymph % (Auto) [place] % (Auto) Lymph # (Auto) [place] # (Auto) Seg Neutrophils % Seg Neuts % (Manual) Lymphocytes % (Manual) Seg Neutrophils # Seg Neutrophils # Man Lymphocytes # (Manual) PT INR ABG pH ABG pO2 66.6 L ABG HCO3 38.2 H ABG O2 Saturation 94.4 L ABG Base Excess 10.7 H ABG Hemoglobin 10.7 L Oxyhemoglobin 92.8 L Sodium Potassium Chloride Carbon Dioxide BUN Creatinine Glucose POC Glucose 143 H 114 H Calcium Phosphorus Magnesium Total Creatine Kinase CK-MB (CK-2) Rel Index Troponin T C-Reactive Protein Total Protein Albumin LDL Cholesterol Direct Urine WBC (Auto) 04/10/22 04/10/22 04/10/22 04:48 04:48 05:34 WBC RBC 2.91 L Hgb 9.1 L Hct 27.7 L MCV 95 H Plt Count Lymph % (Auto) [place] % (Auto) Lymph # (Auto) [place] # (Auto) Seg Neutrophils % Seg Neuts % (Manual) Lymphocytes % (Manual) Seg Neutrophils # Seg Neutrophils # Man Lymphocytes # (Manual) PT INR ABG pH ABG pO2 ABG HCO3 ABG O2 Saturation ABG Base Excess ABG Hemoglobin Oxyhemoglobin Sodium Potassium Chloride 95.7 L Carbon Dioxide 38 H BUN Creatinine < 0.2 L Glucose 118 H POC Glucose 127 H Calcium Phosphorus Magnesium Total Creatine Kinase CK-MB (CK-2) Rel Index Troponin T C-Reactive Protein Total Protein Albumin LDL Cholesterol Direct Urine WBC (Auto) 04/10/22 04/11/22 04/11/22 23:10 04:15 04:15 WBC 17.2 H RBC 2.98 L Hgb 9.2 L Hct 27.9 L MCV Plt Count Lymph % (Auto) [place] % (Auto) Lymph # (Auto) [place] # (Auto) Seg Neutrophils % Seg Neuts % (Manual) Lymphocytes % (Manual) Seg Neutrophils # Seg Neutrophils # Man Lymphocytes # (Manual) PT INR ABG pH ABG pO2 ABG HCO3 ABG O2 Saturation ABG Base Excess ABG Hemoglobin Oxyhemoglobin Sodium Potassium Chloride 96.1 L Carbon Dioxide 35 H BUN Creatinine < 0.2 L Glucose 138 H POC Glucose 106 H Calcium 8.3 L Phosphorus Magnesium Total Creatine Kinase CK-MB (CK-2) Rel Index Troponin T C-Reactive Protein Total Protein Albumin LDL Cholesterol Direct Urine WBC (Auto) 04/11/22 04/11/22 04/11/22 05:31 13:18 16:20 WBC RBC Hgb Hct MCV Plt Count Lymph % (Auto) [place] % (Auto) Lymph # (Auto) [place] # (Auto) Seg Neutrophils % Seg Neuts % (Manual) Lymphocytes % (Manual) Seg Neutrophils # Seg Neutrophils # Man Lymphocytes # (Manual) PT INR ABG pH ABG pO2 57.8 L ABG HCO3 40.5 H ABG O2 Saturation 90.6 L ABG Base Excess 12.6 H ABG Hemoglobin 10.5 L Oxyhemoglobin 89.0 L Sodium Potassium Chloride Carbon Dioxide BUN Creatinine Glucose POC Glucose 129 H 132 H Calcium Phosphorus Magnesium Total Creatine Kinase CK-MB (CK-2) Rel Index Troponin T C-Reactive Protein Total Protein Albumin LDL Cholesterol Direct Urine WBC (Auto) 04/11/22 04/11/22 04/12/22 17:29 23:17 04:00 WBC 17.4 H RBC 2.96 L Hgb 9.0 L Hct 28.0 L MCV 95 H Plt Count Lymph % (Auto) [place] % (Auto) Lymph # (Auto) [place] # (Auto) Seg Neutrophils % Seg Neuts % (Manual) Lymphocytes % (Manual) Seg Neutrophils # Seg Neutrophils # Man Lymphocytes # (Manual) PT INR ABG pH ABG pO2 ABG HCO3 ABG O2 Saturation ABG Base Excess ABG Hemoglobin Oxyhemoglobin Sodium Potassium Chloride Carbon Dioxide BUN Creatinine Glucose POC Glucose 125 H 151 H Calcium Phosphorus Magnesium Total Creatine Kinase CK-MB (CK-2) Rel Index Troponin T C-Reactive Protein Total Protein Albumin LDL Cholesterol Direct Urine WBC (Auto) 04/12/22 04/12/22 04/12/22 04:00 17:03 23:39 WBC RBC Hgb Hct MCV Plt Count Lymph % (Auto) [place] % (Auto) Lymph # (Auto) [place] # (Auto) Seg Neutrophils % Seg Neuts % (Manual) Lymphocytes % (Manual) Seg Neutrophils # Seg Neutrophils # Man Lymphocytes # (Manual) PT INR ABG pH ABG pO2 ABG HCO3 ABG O2 Saturation ABG Base Excess ABG Hemoglobin Oxyhemoglobin Sodium Potassium Chloride 97.4 L Carbon Dioxide 37 H BUN Creatinine < 0.2 L Glucose 127 H POC Glucose 106 H 107 H Calcium Phosphorus Magnesium Total Creatine Kinase CK-MB (CK-2) Rel Index Troponin T C-Reactive Protein Total Protein Albumin LDL Cholesterol Direct Urine WBC (Auto) 04/13/22 04/13/22 04/13/22 04:30 04:30 17:39 WBC 14.1 H RBC 2.66 L Hgb 8.4 L Hct 25.5 L MCV 96 H Plt Count Lymph % (Auto) [place] % (Auto) Lymph # (Auto) [place] # (Auto) Seg Neutrophils % Seg Neuts % (Manual) Lymphocytes % (Manual) Seg Neutrophils # Seg Neutrophils # Man Lymphocytes # (Manual) PT INR ABG pH ABG pO2 ABG HCO3 ABG O2 Saturation ABG Base Excess ABG Hemoglobin Oxyhemoglobin Sodium Potassium Chloride 93.9 L Carbon Dioxide 39 H BUN Creatinine < 0.2 L Glucose POC Glucose 134 H Calcium Phosphorus 1.90 L Magnesium Total Creatine Kinase CK-MB (CK-2) Rel Index Troponin T C-Reactive Protein Total Protein Albumin LDL Cholesterol Direct Urine WBC (Auto) 04/14/22 04/14/22 04/14/22 05:03 05:03 09:10 WBC 15.6 H RBC 3.02 L Hgb 9.3 L Hct 28.8 L MCV 95 H Plt Count Lymph % (Auto) [place] % (Auto) Lymph # (Auto) [place] # (Auto) Seg Neutrophils % Seg Neuts % (Manual) Lymphocytes % (Manual) Seg Neutrophils # Seg Neutrophils # Man Lymphocytes # (Manual) PT INR ABG pH ABG pO2 66.9 L ABG HCO3 44.5 H ABG O2 Saturation ABG Base Excess 17.2 H ABG Hemoglobin 8.1 L Oxyhemoglobin 94.8 L Sodium Potassium Chloride 93.8 L Carbon Dioxide 42 H* BUN Creatinine < 0.2 L Glucose 117 H POC Glucose Calcium Phosphorus Magnesium Total Creatine Kinase CK-MB (CK-2) Rel Index Troponin T C-Reactive Protein Total Protein Albumin LDL Cholesterol Direct Urine WBC (Auto) 04/15/22 04/15/2222 04:44 04:44 04:16 WBC 13.0 H 12.6 H RBC 3.19 L 3.09 L Hgb 9.6 L 9.5 L Hct 30.2 L 29.1 L MCV 95 H Plt Count 456 H Lymph % (Auto) [place] % (Auto) Lymph # (Auto) [place] # (Auto) Seg Neutrophils % Seg Neuts % (Manual) Lymphocytes % (Manual) Seg Neutrophils # Seg Neutrophils # Man Lymphocytes # (Manual) PT INR ABG pH ABG pO2 ABG HCO3 ABG O2 Saturation ABG Base Excess ABG Hemoglobin Oxyhemoglobin Sodium Potassium Chloride 95.5 L Carbon Dioxide 37 H BUN Creatinine < 0.2 L Glucose POC Glucose Calcium Phosphorus Magnesium Total Creatine Kinase CK-MB (CK-2) Rel Index Troponin T C-Reactive Protein Total Protein Albumin LDL Cholesterol Direct Urine WBC (Auto) 04/16/22 04/16/22 04/16/22 04:16 05:00 14:00 WBC RBC Hgb Hct MCV Plt Count Lymph % (Auto) [place] % (Auto) Lymph # (Auto) [place] # (Auto) Seg Neutrophils % Seg Neuts % (Manual) Lymphocytes % (Manual) Seg Neutrophils # Seg Neutrophils # Man Lymphocytes # (Manual) PT INR ABG pH 7.324 L ABG pO2 55.6 L ABG HCO3 45.3 H ABG O2 Saturation 87.1 L ABG Base Excess 16.6 H ABG Hemoglobin 8.6 L Oxyhemoglobin 85.7 L Sodium Potassium Chloride 97.6 L Carbon Dioxide 36 H BUN Creatinine < 0.2 L Glucose 109 H POC Glucose 120 H Calcium Phosphorus Magnesium Total Creatine Kinase CK-MB (CK-2) Rel Index Troponin T C-Reactive Protein Total Protein Albumin LDL Cholesterol Direct Urine WBC (Auto) 04/17/22 04/17/22 04/17/22 04:36 04:36 04:57 WBC 14.4 H RBC 3.08 L Hgb 9.4 L Hct 29.0 L MCV Plt Count Lymph % (Auto) [place] % (Auto) Lymph # (Auto) [place] # (Auto) Seg Neutrophils % Seg Neuts % (Manual) Lymphocytes % (Manual) Seg Neutrophils # Seg Neutrophils # Man Lymphocytes # (Manual) PT INR ABG pH ABG pO2 ABG HCO3 ABG O2 Saturation ABG Base Excess ABG Hemoglobin Oxyhemoglobin Sodium Potassium Chloride 95.9 L Carbon Dioxide 39 H BUN Creatinine < 0.2 L Glucose 140 H POC Glucose 137 H Calcium 8.3 L Phosphorus Magnesium Total Creatine Kinase CK-MB (CK-2) Rel Index Troponin T C-Reactive Protein Total Protein Albumin LDL Cholesterol Direct Urine WBC (Auto) 04/17/22 04/17/22 04/18/22 09:15 18:01 04:20 WBC 11.2 H RBC 3.00 L Hgb 9.3 L Hct 28.6 L MCV 95 H Plt Count Lymph % (Auto) [place] % (Auto) Lymph # (Auto) [place] # (Auto) Seg Neutrophils % Seg Neuts % (Manual) Lymphocytes % (Manual) Seg Neutrophils # Seg Neutrophils # Man Lymphocytes # (Manual) PT INR ABG pH 7.345 L ABG pO2 ABG HCO3 48.2 H ABG O2 Saturation ABG Base Excess 19.2 H ABG Hemoglobin 9.7 L Oxyhemoglobin Sodium Potassium Chloride Carbon Dioxide BUN Creatinine Glucose POC Glucose 129 H Calcium Phosphorus Magnesium Total Creatine Kinase CK-MB (CK-2) Rel Index Troponin T C-Reactive Protein Total Protein Albumin LDL Cholesterol Direct Urine WBC (Auto) 04/18/22 04/18/22 04/18/22 04:20 17:35 23:50 WBC RBC Hgb Hct MCV Plt Count Lymph % (Auto) [place] % (Auto) Lymph # (Auto) [place] # (Auto) Seg Neutrophils % Seg Neuts % (Manual) Lymphocytes % (Manual) Seg Neutrophils # Seg Neutrophils # Man Lymphocytes # (Manual) PT INR ABG pH ABG pO2 ABG HCO3 ABG O2 Saturation ABG Base Excess ABG Hemoglobin Oxyhemoglobin Sodium Potassium Chloride 96.8 L Carbon Dioxide 43 H* BUN 22 H Creatinine < 0.2 L Glucose 137 H POC Glucose 128 H 123 H Calcium 8.2 L Phosphorus Magnesium Total Creatine Kinase CK-MB (CK-2) Rel Index Troponin T C-Reactive Protein Total Protein Albumin LDL Cholesterol Direct Urine WBC (Auto) 04/19/22 04/19/22 04/19/22 04:08 04:08 08:50 WBC 16.8 H RBC 3.18 L Hgb 9.8 L Hct 30.1 L MCV 95 H Plt Count Lymph % (Auto) [place] % (Auto) Lymph # (Auto) [place] # (Auto) Seg Neutrophils % Seg Neuts % (Manual) Lymphocytes % (Manual) Seg Neutrophils # Seg Neutrophils # Man Lymphocytes # (Manual) PT INR ABG pH ABG pO2 56.0 L ABG HCO3 47.1 H ABG O2 Saturation 93.3 L ABG Base Excess 20.1 H ABG Hemoglobin 8.0 L Oxyhemoglobin 91.8 L Sodium Potassium Chloride 96.2 L Carbon Dioxide 40 H BUN 24 H Creatinine < 0.2 L Glucose 125 H POC Glucose Calcium 8.3 L Phosphorus Magnesium Total Creatine Kinase CK-MB (CK-2) Rel Index Troponin T C-Reactive Protein Total Protein Albumin LDL Cholesterol Direct Urine WBC (Auto) 04/19/22 04/20/22 04/20/22 12:02 00:40 04:49 WBC 14.7 H RBC 3.36 L Hgb 10.3 L Hct 32.0 L MCV 95 H Plt Count Lymph % (Auto) [place] % (Auto) Lymph # (Auto) [place] # (Auto) Seg Neutrophils % Seg Neuts % (Manual) Lymphocytes % (Manual) Seg Neutrophils # Seg Neutrophils # Man Lymphocytes # (Manual) PT INR ABG pH ABG pO2 ABG HCO3 ABG O2 Saturation ABG Base Excess ABG Hemoglobin Oxyhemoglobin Sodium Potassium Chloride Carbon Dioxide BUN Creatinine Glucose POC Glucose 124 H 140 H Calcium Phosphorus Magnesium Total Creatine Kinase CK-MB (CK-2) Rel Index Troponin T C-Reactive Protein Total Protein Albumin LDL Cholesterol Direct Urine WBC (Auto) 04/20/22 04/20/22 04/21/22 05:36 11:40 04:05 WBC RBC Hgb Hct MCV Plt Count Lymph % (Auto) [place] % (Auto) Lymph # (Auto) [place] # (Auto) Seg Neutrophils % Seg Neuts % (Manual) Lymphocytes % (Manual) Seg Neutrophils # Seg Neutrophils # Man Lymphocytes # (Manual) PT INR ABG pH ABG pO2 ABG HCO3 ABG O2 Saturation ABG Base Excess ABG Hemoglobin Oxyhemoglobin Sodium Potassium Chloride 93.4 L Carbon Dioxide 40 H BUN 25 H Creatinine < 0.2 L Glucose 122 H POC Glucose 125 H 128 H Calcium Phosphorus Magnesium Total Creatine Kinase CK-MB (CK-2) Rel Index Troponin T C-Reactive Protein Total Protein Albumin LDL Cholesterol Direct Urine WBC (Auto) 04/21/22 04/22/22 04/22/22 10:31 05:03 05:03 WBC 12.6 H 12.7 H RBC 2.83 L 2.96 L Hgb 8.6 L 9.0 L Hct 26.9 L 28.0 L MCV 95 H 95 H Plt Count Lymph % (Auto) [place] % (Auto) Lymph # (Auto) [place] # (Auto) Seg Neutrophils % Seg Neuts % (Manual) Lymphocytes % (Manual) Seg Neutrophils # Seg Neutrophils # Man Lymphocytes # (Manual) PT INR ABG pH ABG pO2 ABG HCO3 ABG O2 Saturation ABG Base Excess ABG Hemoglobin Oxyhemoglobin Sodium Potassium Chloride 93.9 L Carbon Dioxide 43 H* BUN 23 H Creatinine < 0.2 L Glucose 137 H POC Glucose Calcium Phosphorus Magnesium Total Creatine Kinase CK-MB (CK-2) Rel Index Troponin T C-Reactive Protein Total Protein Albumin LDL Cholesterol Direct Urine WBC (Auto) 04/22/22 04/23/22 04/24/22 08:34 09:40 04:29 WBC 14.4 H RBC 2.74 L Hgb 8.4 L Hct 25.7 L MCV Plt Count Lymph % (Auto) [place] % (Auto) Lymph # (Auto) [place] # (Auto) Seg Neutrophils % Seg Neuts % (Manual) Lymphocytes % (Manual) Seg Neutrophils # Seg Neutrophils # Man Lymphocytes # (Manual) PT INR ABG pH ABG pO2 54.1 L 56.8 L ABG HCO3 48.5 H 49.0 H ABG O2 Saturation 92.1 L 90.9 L ABG Base Excess 20.9 H 20.8 H ABG Hemoglobin 9.0 L 8.4 L Oxyhemoglobin 90.6 L 89.5 L Sodium Potassium Chloride Carbon Dioxide BUN Creatinine Glucose POC Glucose Calcium Phosphorus Magnesium Total Creatine Kinase CK-MB (CK-2) Rel Index Troponin T C-Reactive Protein Total Protein Albumin LDL Cholesterol Direct Urine WBC (Auto) 04/24/22 04/25/22 04/26/22 04:29 09:00 04:22 WBC RBC 2.88 L Hgb 8.9 L Hct 26.8 L MCV Plt Count Lymph % (Auto) [place] % (Auto) Lymph # (Auto) [place] # (Auto) Seg Neutrophils % Seg Neuts % (Manual) Lymphocytes % (Manual) Seg Neutrophils # Seg Neutrophils # Man Lymphocytes # (Manual) PT INR ABG pH 7.457 H ABG pO2 66.7 L ABG HCO3 42.6 H ABG O2 Saturation ABG Base Excess 15.3 H ABG Hemoglobin 8.8 L Oxyhemoglobin 94.1 L Sodium Potassium Chloride 90.7 L Carbon Dioxide 40 H BUN Creatinine < 0.2 L Glucose 133 H POC Glucose Calcium Phosphorus Magnesium Total Creatine Kinase CK-MB (CK-2) Rel Index Troponin T C-Reactive Protein Total Protein Albumin LDL Cholesterol Direct Urine WBC (Auto) 04/26/22 04/29/22 04/29/22 04:22 04:18 04:18 WBC 13.5 H RBC 2.96 L Hgb 8.9 L Hct 27.7 L MCV Plt Count Lymph % (Auto) [place] % (Auto) Lymph # (Auto) [place] # (Auto) Seg Neutrophils % Seg Neuts % (Manual) Lymphocytes % (Manual) Seg Neutrophils # Seg Neutrophils # Man Lymphocytes # (Manual) PT INR ABG pH ABG pO2 ABG HCO3 ABG O2 Saturation ABG Base Excess ABG Hemoglobin Oxyhemoglobin Sodium Potassium Chloride 93.2 L 95.2 L Carbon Dioxide 37 H 38 H BUN Creatinine < 0.2 L < 0.2 L Glucose 114 H 116 H POC Glucose Calcium Phosphorus Magnesium Total Creatine Kinase CK-MB (CK-2) Rel Index Troponin T C-Reactive Protein Total Protein Albumin LDL Cholesterol Direct Urine WBC (Auto) Chest x-ray: image reviewed Allied health notes reviewed: RT
--- NOTE | 2022-04-29 10:52 | Progress Note ---
<ALEK SMITH - Last Filed: 04/29/22 19:22> Assessment and Plan Assessment and plan: This is a 57-year-old male with known history of ALS, recently hospitalized at [facility] admitted for acute hypoxemic respiratory failure 2/2 pneumonia Hospital Course to Date: 04/03: Intubated and Sedated on versed gtt, RASS-5. CT head/brain noted with no acute intracranial abnormality. Plan to initiated precededx gtt and wean off versed for a RASS goal of 0 to -2. CT chect also reviewed, findings are most consistent with acute bronchopneumonia. Continue empiric IV Abx, vent adjustment per CCM. ID consulted. Continue to F/U on cultures. Titrate pressor for MAP above 65. Medical records requested from [facility]. 04/04: Remains stable on the vent, easily arousable on precedex gtt, not following commands. Plan for SAT/SBT today. PRN analgesia for CPOT greater than 3. Fevers improved, cultures and procal pending. Continue current IV abx, ID also consulted. Remains on low dose pressors, titrate pressors for a MAP above 65. 04/05: Long discussion with family with use of translation phone with CCM regarding goals of care. Family to have meeting amongst themselves and informed care team of decisions. Fentanyl drip added for respiratory distress. Remains on Precedex drip. Antibiotics per ID. Given 2L NS bolus with levophed gtt 04/06: Family discussion with Dr. Grayson for goals of care. CXR shows possible mucus plug, continue CPT as FiO2 is being able to be weaned. Potassium repleted. Weaning fentnyl gtt. 04/07: Ultrasound guided thoracentesis today scheduled, inadequate amount of pleural effusion on so not completed. Patient was started on Levophed overnight which was weaned off this morning however had to be started twice a day. Remains on fentanyl and Precedex. Cardiology discontinued BB and ACEi in setting of hypotension. 04/08: COVID-19 PCR negative. Routine EEG ordered by cardiology which showed ST changes, cardiology aware. They will continue conservative treatment. Repeat troponins 0.030 which are less than admit of 0.048. Dr. Grayson had a long discu ssion with with the use of asl interpreter today at bedside and has not made a decision regarding goals of care. Possible consult to surgery for trach/PEG early next week. Continues to require Precedex and fentanyl drip for sedation. Carvedilol/lisinopril discontinued as patient is continuously on Levophed. 04/09: No acute events reported overnight, remains on fentanyl, Precedex and Levophed drips. Dr. Grayson and Dr. Pineda updated family at bedside extensively today. Consulted surgery for trach/PEG. COVID-19 PCR negative. 04/10: Patient noted to have desaturation episodes, FiO2 increased slightly to 35%. Will add Mucomyst. Remains on fentanyl and Precedex. Off of Levophed. Surgery consulted for trach/PEG. 04/11: FiO2 increased over night likely related to hypoxia, continues on fent gtt, weaning precedex gtt as he is also on Seroquel. Will d/w CCM re scheduled or prn oxycodone 04/12: Periods of hypoxia and tachycardia this am. Symptoms improved post deep suction and tracheal lavage, Repeat CXR noted with no significant change. Continue CPT and mucomyst. Plan for possible trach/PEG tomorrow by general surgery. 04/13: Remains stable on the vent. Patient is wake and tracking but does not follow simple commands. No report of hypoxia from overnight, continue CPT and mucomyst. Plan for track and PEG today by General Surgery. Plan for LTAC placement post procedure, case management to arrange. 04/14: VIRGILIO overnight, Trach and PEG postponed for today by general surgery. Plan for LTAC placement post procedure, case management to arrange. 04/15: S/p Trach and PEG. Up to 80% FiO2 this am, this am CXR noted suggesting possible mucus plug. D/W [facility] plan for bronch today. Continue CPT and mucomyst. Plan of care thoroughly discussed with patient's and son (who translated for ) at the bedside. Per , slinger sequins had already discussed the risks and benefits of the procedure yesterday. She verbalized understanding and agreed with procedure and current care plan, consent signed. Okay to use PEG-tube for meds this am, resume TF once okay by general Surgery. Case management to arrange LTAC placement. 04/16: s/p Bronchocopy by [facility]. FiO2 down to 60%, angela 10 this am. This am CXR with moderate improvement. Continue CPT and mucomyst, wean Fio2 as tolerated for SPO2 above 92%. Patient is tolerating TF, advance to goal as ordered. Possible LTAC placement, case management to arrange. 04/17: VIRGILIO overnight. remains stable on the vent, recent CXR and this am ABG n oted. Continue CPT and mucomyst, wean Fio2 as tolerated. 04/18: Remains stable on the vent, Fio2 down to 55% and peep of 8 this am. Continue to wean as tolerated, CPT, and mucomyst. Dsiposition- LTAC placement, case management to arrange. 04/19: No acute events overnight. Continue current management. 04/20: No acute events overnight, continue current management 04/21: Patient had chest ultrasound which showed trace pleural effusions, chest x-ray improved after the addition of Mucomyst yesterday. FiO2 55-65%. No acute events overnight. more interactive today. 04/22: Seroquel changed to BID, FiO2 was increased to 60%. RT increased FIO2 to 100 d/t desaturation into the 80s but was able to wean down. CCM increased PEEP and decreased FiO2. 04/23: CCM increase PEEP, no acute events reported overnight. 04/24: Spoke to RT about decreasing FiO2 as tolerated. No acute events reported overnight. Continue supportive management. 04/25: Weaning as tolerated. no acute events overnight. RT to attempt CPAP again today 04/26: VIRGILIO overnight. Patient failed PSV trial again this morning. Continue s upportive management and daily PST trial. 04/27: Patient failed PSV trial again this am due to episodes of apnea. Continue daily PSV trial as tolerated. Case management to arrange LTAC placement 04/28: Remains stable. Continue daily PSV trial as tolerated. Awaiting approval for LTAC 04/29: VIRGILIO overnight. Continue daily PSV trial. Awaiting approval for LTAC, case management to arrange. Assessment and Plan #Acute Hypoxemic Respiratory Failure 12/09 #Acute Bronchopneumonia - Intubated in the ED on 04/02 for hypoxemia and airway protection - 04/14 s/p Trach and PEG - 04/15 CXR reviewed complete opacity of the righ side suggesting possible mucus plug. See report for detail - 04/15 s/p Bronchoscopy by CCM - Vent setting: PRVC-40%,10,14,400 - No ABG this am - [facility] consulted, appreciate recommendations - Patient failed PST trial again today due to episodes of apnea - Continue daily PSVT as tolerated - Continue CPT and mucomyst per [facility] - VAP bundle addressed - Aspiration precaution HOB above 30 - PRN ABG and CXR per [facility] - Continue SPO2 monitoring for SPO2 goal above 92% #Sepsis #Acute Bronchopneumonia #HCAP #Leukocytosis - CXR shows moderate to large layering effusion on the right, see report for full detail - CT chest also reviewed, findings are most consistent with acute bronchopneumonia. See report for full detail - Patient was recent hospitalized for pneumonia - Patient remains afebrile - Tracheal aspirate with Pseudomonas aeruginosa, Enterobacter aerogenes - 04/02 blood culture with bacillus species, 04/05 blood culture NGTD - Patient completed [id number] of Cefepine - CRP 31.6, procalcitonin 0.08 - MRSA negative - Daily CBC monitor - ID signed off #Suspect ischemic coronary artery disease #h/o cardiomyopathy - Low BP probably due to hypovolemia vs sedation vs infectious process - s/p Levophed gtt - Elevated troponin possibly a type II troponin leak - Cardiology consulted, appreciated recommendations - Echocardiogram shows ejection fraction of 40 to 45%, mild global hypokinesis of left ventricle - Continue BB - Continue blood pressure monitor per protocol - Maintain MAP above 65 - On heparin SubQ #H/o Amyotrophic Lateral Sclerosis #Acute Metabolic Encephalopathy-resolved #Nonverbal at Baseline - Presented with AMS, per family patient is nonverbal at baseline but responsive - CT head/Brain with no acute intracranial process - Off sedation. Awake and calm - Continue Seroquel per [facility] - Avoid benzodiazepine to reduce the possibility of delirium - PRN analgesia for CPOT greater than 3 - Maintenance of sleep-wake cycle #Thrombocytopenia-resolved - Continue to trend plt - On heparin subQ - Monitor for s/s of any active bleeding #Hypernatremia-resolved - Monitor and replace electrolytes as needed - Continue to trend BMP #Protein Caloric Malnutrition - Albumin 2.7, Total protein 4.6 - 04/15 s/p EPG-Tube placement - Continue enteral nutrition - Nutrition consulted #Constipation - Noted on CXR and KUB - last BM 04/27 - Continue BR #GI/DVT Prophylaxis - PPI- Pepcid - Heparin SubQ - SCDs to bilateral lower extremities while in bed #Advance Care Planning - Disease education data, care plan, diagnoses, and prognosis were discussed patient's , Carly Lopez, and patient daughter, Kaylee Warren, who translated for #[phone]. They reported that patient was following at [facility] for his ALS and during recent hospitalization at [facility] they were told nothing else can be offered to patient at this time and patient was discharge home with home hospice and PO morphine. First hospice visit was on , however, patient became unresponsive yesterday and they brought in to the hospital. - Goal of care and code status were also addressed at that time. Family wants to wait for a couple days to see how patient respond to current treatment before m aking a decision. All questions and concerns were addressed at this time. Patient family acknowledged understanding and agreement with care plan. - Patient remains a FULL CODE status -04/05: Discussion at bedside with interpreting service with Dr. Valdivia and family state they would discuss next steps amongst themselves and let healthcare team know of decisions -04/06: extensive discussion with family ( and son) with Dr. Grayson regarding goals of care -04/08: Extensive discussion with with the use of asl interpreter line regarding goals of care; no decision made. Possible consult to surgery for trach/PEG early next week. -04/09: Discussion with and her sister with Dr. Grayson and then with Dr. Pineda-> Consulted surgery for trach/peg -Plan LTAC placement, case management to arrange. -will need to stay 21 days and have 3 failed PSV trials. The high probability of a clinically significant, sudden or life threatening deterioration of the [multiple] system(s) required my full and direct attention, intervention and personal management. The aggregate critical care time was [60] minutes. This time is in addition to time spent performing reported procedures but includes the following: [x] Data Review and interpretation [x] Patient assessment and monitoring of vital signs [x] Documentation [x] Medication orders and management Disposition Plan: ICU Total Time Spent with Patient (Minutes): 60 History Interval history: Patient seen and examined at the bedside. Stable on the vent, awake and tracking, following simple commands, VSS. Patient failed PSV trial again this am. Otherwise VIRGILIO overnight Hospitalist Physical - Physical exam Narrative exam: General appearance: Present: no acute distress, cachectic, other (Trach and on the vent.Awake and tracking, following simple commands) - EENT Eyes: Present: PERRL - Neck Neck: Present: normal ROM - Respiratory Respiratory effort: normal Respiratory: bilateral: rhonchi - Cardiovascular Rhythm: regular Heart Sounds: Present: S1 & S2 - Extremities Extremities: no ischemia, pulses intact, pulses symmetrical Peripheral Pulses: within normal limits - Abdominal General gastrointestinal: soft, non-distended, normal bowel sounds - Integumentary Integumentary: Present: warm, dry - Psychiatric Psychiatric: other (Trach and on the vent. Awake and tracking, following simple commands) - Neurologic Neurologic: other (Trach and on the vent. Awake and tracking, following simple commands) - Allied Health Allied health notes reviewed: nursing, case management - Constitutional Vitals: Temp Pulse Resp BP Pulse Ox 100 F H 119 H 14 113/79 84 04/29/22 08:00 04/29/22 10:00 04/29/22 10:00 04/29/22 10:00 04/29/22 10:00 HEART Score - HEART Score Troponin: Troponin T 0.031 ng/mL (0.00-0.029) H 04/08/22 17:47 Results - Labs CBC & Chem 7: 04/29/22 04:18 04/29/22 04:18 Labs: Laboratory Last Values WBC 13.5 K/mm3 (4.5-11.0) H 04/29/22 04:18 RBC 2.96 M/mm3 (3.65-5.03) L 04/29/22 04:18 Hgb 8.9 gm/dl (11.8-15.2) L 04/29/22 04:18 Hct 27.7 % (35.5-45.6) L 04/29/22 04:18 MCV 94 fl (84-94) 04/29/22 04:18 MCH 30 pg (28-32) 04/29/22 04:18 MCHC 32 % (32-34) 04/29/22 04:18 RDW 14.0 % (13.2-15.2) 04/29/22 04:18 Plt Count 348 K/mm3 (140-440) 04/29/22 04:18 Lymph % (Auto) 4.3 % (13.4-35.0) L 04/07/22 03:51 [place] % (Auto) 8.8 % (0.0-7.3) H 04/07/22 03:51 Eos % (Auto) 0.1 % (0.0-4.3) 04/07/22 03:51 Baso % (Auto) 0.2 % (0.0-1.8) 04/07/22 03:51 Lymph # (Auto) 0.6 K/mm3 (1.2-5.4) L 04/07/22 03:51 [place] # (Auto) 1.3 K/mm3 (0.0-0.8) H 04/07/22 03:51 Eos # (Auto) 0.0 K/mm3 (0.0-0.4) 04/07/22 03:51 Baso # (Auto) 0.0 K/mm3 (0.0-0.1) 04/07/22 03:51 Add Manual Diff Complete 04/02/22 19:39 Total Counted 100 04/02/22 19:39 Seg Neutrophils % 86.6 % (40.0-70.0) H 04/07/22 03:51 Seg Neuts % (Manual) 94.0 % (40.0-70.0) H 04/02/22 19:39 Band Neutrophils % 0 % 04/02/22 19:39 Lymphocytes % (Manual) 1.0 % (13.4-35.0) L 04/02/22 19:39 Reactive Lymphs % (Man) 0 % 04/02/22 19:39 Monocytes % (Manual) 5.0 % (0.0-7.3) 04/02/22 19:39 Eosinophils % (Manual) 0 % (0.0-4.3) 04/02/22 19:39 Basophils % (Manual) 0 % (0.0-1.8) 04/02/22 19:39 Metamyelocytes % 0 % 04/02/22 19:39 Myelocytes % 0 % 04/02/22 19:39 Promyelocytes % 0 % 04/02/22 19:39 Blast Cells % 0 % 04/02/22 19:39 Nucleated RBC % Not Reportable 04/02/22 19:39 Seg Neutrophils # 12.7 K/mm3 (1.8-7.7) H 04/07/22 03:51 Seg Neutrophils # Man 13.4 K/mm3 (1.8-7.7) H 04/02/22 19:39 Band Neutrophils # 0.0 K/mm3 04/02/22 19:39 Lymphocytes # (Manual) 0.1 K/mm3 (1.2-5.4) L 04/02/22 19:39 Abs React Lymphs (Man) 0.0 K/mm3 04/02/22 19:39 Monocytes # (Manual) 0.7 K/mm3 (0.0-0.8) 04/02/22 19:39 Eosinophils # (Manual) 0.0 K/mm3 (0.0-0.4) 04/02/22 19:39 Basophils # (Manual) 0.0 K/mm3 (0.0-0.1) 04/02/22 19:39 Metamyelocytes # 0.0 K/mm3 04/02/22 19:39 Myelocytes # 0.0 K/mm3 04/02/22 19:39 Promyelocytes # 0.0 K/mm3 04/02/22 19:39 Blast Cells # 0.0 K/mm3 04/02/22 19:39 WBC Morphology Not Reportable 04/02/22 19:39 Hypersegmented Neuts Not Reportable 04/02/22 19:39 Hyposegmented Neuts Not Reportable 04/02/22 19:39 Hypogranular Neuts Not Reportable 04/02/22 19:39 Smudge Cells Not Reportable 04/02/22 19:39 Toxic Granulation Not Reportable 04/02/22 19:39 Toxic Vacuolation Not Reportable 04/02/22 19:39 Dohle Bodies Not Reportable 04/02/22 19:39 Pelger-Huet Anomaly Not Reportable 04/02/22 19:39 Terry Rods Not Reportable 04/02/22 19:39 Platelet Estimate Consistent w auto 04/02/22 19:39 Clumped Platelets Not Reportable 04/02/22 19:39 Plt Clumps, EDTA Not Reportable 04/02/22 19:39 Large Platelets Not Reportable 04/02/22 19:39 Giant Platelets Not Reportable 04/02/22 19:39 Platelet Satelliting Not Reportable 04/02/22 19:39 Plt Morphology Comment Not Reportable 04/02/22 19:39 RBC Morphology Not Reportable 04/02/22 19:39 Dimorphic RBCs Not Reportable 04/02/22 19:39 Polychromasia Not Reportable 04/02/22 19:39 Hypochromasia Not Reportable 04/02/22 19:39 Poikilocytosis Not Reportable 04/02/22 19:39 Anisocytosis 1+ 04/02/22 19:39 Microcytosis Not Reportable 04/02/22 19:39 Macrocytosis Not Reportable 04/02/22 19:39 Spherocytes Not Reportable 04/02/22 19:39 Pappenheimer Bodies Not Reportable 04/02/22 19:39 Sickle Cells Not Reportable 04/02/22 19:39 Target Cells Not Reportable 04/02/22 19:39 Tear Drop Cells Not Reportable 04/02/22 19:39 Ovalocytes Not Reportable 04/02/22 19:39 Helmet Cells Not Reportable 04/02/22 19:39 [place] Bodies Not Reportable 04/02/22 19:39 [place] Rings Not Reportable 04/02/22 19:39 [place] Cells Not Reportable 04/02/22 19:39 Bite Cells Not Reportable 04/02/22 19:39 Crenated Cell Not Reportable 04/02/22 19:39 Elliptocytes Not Reportable 04/02/22 19:39 Acanthocytes (Spur) Not Reportable 04/02/22 19:39 Rouleaux Not Reportable 04/02/22 19:39 Hemoglobin C Crystals Not Reportable 04/02/22 19:39 Schistocytes Not Reportable 04/02/22 19:39 Malaria parasites Not Reportable 04/02/22 19:39 [place] Bodies Not Reportable 04/02/22 19:39 Hem Pathologist Commnt No 04/02/22 19:39 PT 13.6 Sec. (12.2-14.9) 04/13/22 04:30 INR 0.94 (0.87-1.13) 04/13/22 04:30 APTT 35.7 Sec. (24.2-36.6) 04/07/22 03:51 ABG pH 7.457 pH Units (7.350-7.450) H 04/25/22 09:00 ABG pCO2 61.7 mm Hg 04/25/22 09:00 ABG pO2 66.7 mm Hg (80.0-90.0) L 04/25/22 09:00 ABG HCO3 42.6 mmol/L (20.0-26.0) H 04/25/22 09:00 ABG O2 Saturation 95.7 % (95.0-99.0) 04/25/22 09:00 ABG O2 Content 20.0 (0.0-44) 04/25/22 09:00 ABG Base Excess 15.3 mmol/L (-2.0-3.0) H 04/25/22 09:00 ABG Hemoglobin 8.8 gm/dl (14.0-18.0) L 04/25/22 09:00 ABG Carboxyhemoglobin 1.3 % (0.0-5.0) 04/25/22 09:00 ABG Methemoglobin 0.4 % (0.0-1.5) 04/25/22 09:00 Oxyhemoglobin 94.1 % (95.0-99.0) L 04/25/22 09:00 FiO2 35 % 04/25/22 09:00 Sodium 138 mmol/L (137-145) 04/29/22 04:18 Potassium 4.3 mmol/L (3.6-5.0) 04/29/22 04:18 Chloride 95.2 mmol/L (98-107) L 04/29/22 04:18 Carbon Dioxide 38 mmol/L (22-30) H 04/29/22 04:18 Anion Gap 9 mmol/L 04/29/22 04:18 BUN 19 mg/dL (9-20) 04/29/22 04:18 Creatinine < 0.2 mg/dL (0.8-1.3) L 04/29/22 04:18 Estimated GFR > 60 ml/min 04/29/22 04:18 BUN/Creatinine Ratio 95 % 04/29/22 04:18 Glucose 116 mg/dL (75-100) H 04/29/22 04:18 POC Glucose 128 mg/dL (70-105) H 04/20/22 11:40 Lactic Acid 1.90 mmol/L (0.7-2.0) 04/02/22 19:39 Calcium 8.7 mg/dL (8.4-10.2) 04/29/22 04:18 Phosphorus 3.80 mg/dL (2.5-4.5) 04/29/22 04:18 Magnesium 1.80 mg/dL (1.7-2.3) 04/29/22 04:18 Total Bilirubin 0.80 mg/dL (0.1-1.2) 04/02/22 19:39 AST 15 units/L (5-40) 04/02/22 19:39 ALT 9 units/L (7-56) 04/02/22 19:39 Alkaline Phosphatase 43 units/L (35-129) 04/02/22 19:39 Total Creatine Kinase 46 units/L (55-170) L 04/08/22 17:47 CK-MB (CK-2) 2.6 ng/mL (0.0-4.0) 04/08/22 17:47 CK-MB (CK-2) Rel Index 5.6 (0-4) H 04/08/22 17:47 Troponin T 0.031 ng/mL (0.00-0.029) H 04/08/22 17:47 C-Reactive Protein 31.60 mg/dL (0.00-1.30) H 04/04/22 04:18 Total Protein 4.6 g/dL (6.3-8.2) L 04/02/22 19:39 Albumin 2.7 g/dL (3.9-5) L 04/02/22 19:39 Albumin/Globulin Ratio 1.4 % 04/02/22 19:39 Triglycerides 80 mg/dL (2-149) 04/02/22 19:39 Cholesterol 94 mg/dL (50-199) 04/02/22 19:39 LDL Cholesterol Direct 27 mg/dL (50-130) L 04/02/22 19:39 HDL Cholesterol 47 mg/dL (40-59) 04/02/22 19:39 Cholesterol/HDL Ratio 2.00 % 04/02/22 19:39 Procalcitonin 0.08 ng/mL (<0.15) 04/04/22 04:18 Urine Color Aracely (Yellow) 04/05/22 17:45 Urine Turbidity Cloudy (Clear) 04/05/22 17:45 Urine pH 5.0 (5.0-7.0) 04/05/22 17:45 Ur Specific [place] 1.021 (1.003-1.030) 04/05/22 17:45 Urine Protein 30 mg/dl mg/dL (Negative) 04/05/22 17:45 Urine Glucose (UA) Neg mg/dL (Negative) 04/05/22 17:45 Urine Ketones Tr mg/dL (Negative) 04/05/22 17:45 Urine Blood Sm (Negative) 04/05/22 17:45 Urine Nitrite Neg (Negative) 04/05/22 17:45 Urine Bilirubin Neg (Negative) 04/05/22 17:45 Urine Urobilinogen < 2.0 mg/dL (<2.0) 04/05/22 17:45 Ur Leukocyte Esterase Tr (Negative) 04/05/22 17:45 Urine WBC (Auto) 8.0 /HPF (0.0-6.0) H 04/05/22 17:45 Urine RBC (Auto) 3.0 /HPF (0.0-6.0) 04/05/22 17:45 U Epithel Cells (Auto) 2.0 /HPF (0-13.0) 04/05/22 17:45 Urine Bacteria (Auto) 1+ /HPF (Negative) 04/02/22 Unknown Hyaline Casts 1 /LPF 04/05/22 17:45 Urine Mucus 3+ /HPF 04/05/22 17:45 Nasal Screen MRSA (PCR) Negative (Negative) 04/05/22 12:37 Vancomycin Trough 6.0 ug/mL (5.0-20.0) 04/05/22 18:53 Coronavirus (PCR) Negative (Negative) 04/07/22 14:52 Perez/IV: Voiding Method Condom Catheter Active Medications - Current Medications Current Medications: Generic Name Dose Route Start Last Admin Trade Name Freq PRN Reason Stop Dose Admin Acetaminophen 650 mg 04/02/22 23:53 04/21/22 16:23 Acetaminophen 325 Mg Tab PO 650 mg Q6H PRN Administration Pain MILD(1-3)/Fever >100.5/FAITH Acetylcysteine 200 mg 04/21/22 16:00 04/29/22 08:28 Acetylcysteine 20% 200 Mg/1 Ml *For Inhalation Use* INHALATION 200 mg Q8HRT SEGUNDO Administration Albuterol 2.5 mg 04/06/22 16:00 04/29/22 08:28 Albuterol 2.5 Mg/3 Ml Nebu IH 2.5 mg Q8HRT SEGUNDO Administration Bisacodyl 10 mg 04/07/22 09:44 04/12/22 10:06 Bisacodyl 10 Mg Rect Supp DC 10 mg QDAY PRN Administration Constipation Dextrose 50 ml 04/06/22 17:54 Dextrose 50% In Water (25gm) 50 Ml Syringe IV Q30MIN PRN Hypoglycemia Protocol Docusate Sodium 100 mg 04/28/22 10:00 04/29/22 10:13 Docusate Sodium 100 Mg/10 Ml Oral Liqd FEEDTUBE Not Given BID SEGUNDO Famotidine 20 mg 04/06/22 10:00 04/29/22 10:12 Famotidine 20 Mg Tab FEEDTUBE 20 mg BID SEGUNDO Administration Fentanyl 50 mcg 04/04/22 15:56 04/29/22 05:23 Fentanyl 100 Mcg/2 Ml Inj IV 50 mcg Q2HR PRN Administration For CPOT of greater than 3 Heparin Sodium (Porcine) 5,000 unit 04/03/22 06:00 04/29/22 05:23 Heparin 5,000 Unit/1 Ml Vial SUB-Q 5,000 unit Q8HR SEGUNDO Administration Insulin Human Regular 0 units 04/06/22 18:00 04/29/22 08:59 Insulin Regular, Human 100 Units/1 Ml SUB-Q Not Given Q6H [facility] Protocol Magnesium Hydroxide 30 ml 04/02/22 23:53 Magnesium Hydroxide (Mom) Oral Liqd Udc PO Q4H PRN Constipation Metoprolol Tartrate 25 mg 04/16/22 18:00 04/29/22 05:22 Metoprolol Tartrate 25 Mg Tab FEEDTUBE 25 mg Q6HR SEGUNDO Administration Ondansetron HCl 4 mg 04/02/22 23:53 Ondansetron 4 Mg/2 Ml Inj IV Q8H PRN Nausea And Vomiting Polyethylene Glycol 17 gm 04/08/22 10:00 04/29/22 10:12 Polyethylene Glycol 3350 17 Gm Powder PO Not Given QDAY SEGUNDO Quetiapine Fumarate 50 mg 04/28/22 10:00 04/29/22 10:12 Quetiapine 25 Mg Tab FEEDTUBE 50 mg BID SEGUNDO Administration Senna 17.6 mg 04/28/22 10:00 04/29/22 10:13 Sennosides Oral Liqd 8.8 Mg/5 Ml Oral Liqd FEEDTUBE Not Given Q12HR SEGUNDO Sodium Chloride 10 ml 04/03/22 10:00 04/29/22 10:12 Sodium Chloride 0.9% 10 Ml Flush Syringe IV 10 ml BID SEGUNDO Administration Sodium Chloride 10 ml 04/02/22 23:53 Sodium Chloride 0.9% 10 Ml Flush Syringe IV PRN PRN LINE FLUSH Nutrition/Malnutrition Assess - Dietary Evaluation Nutrition/Malnutrition Findings: Nutrition Notes Start: 04/04/22 13:13 Freq: Status: Active Protocol: Document 04/27/22 11:53 COLLEEN (Rec: 04/27/22 12:21 COLLEEN [id number]) Nutrition Notes Initial or Follow up Reassessment Current Diagnosis Coronary Artery Disease, Decubitus(Pressure Ulcer), Sepsis,Respiratory Failure, Malnutrition Other Pertinent Diagnosis HCAP, HFpEF, ALS, Pleural Effusion, R-Lung Collapse, .. . Current Diet TF-Vital AF 1.2 Inderjit @ 50 ml/hr (since D 04/15). Labs/Tests 04/27: Cl 93.2, CO2 37, Crea < 0.2, Glu 114. Pertinent Medications 04/27: Nutritionally unremarkable. Height 5 ft 4.8 in Weight 46.8 kg [place] Body Weight (kg) 61.27 BMI 17.2 Weight change and time frame No body weight change reported in 3 weeks. Weight Status Underweight Subjective/Other Information RD consult for routine F/U on TF tolerance/continuation. TF continues as prescribed, and well tolerated, according to RN notes. Pt continues on Mechanical ventilation, O2 saturation @ 96%, according to Physical Assessment Histroy notes. Pt continues to present constipation, according to Physical Assessment Histroy notes. 3 failed attempts to wean Pt from Mechanical Ventilation, Pt is back to previous settings in PRCV, according to RN notes. Pt is pending authorization for LTAC placement, according to Progress notes. Percent of energy/protein needs met: Prescribed TF-Vital AF 1.2 Inderjit @ 50 ml/hr provides for energy/protein needs (1,450 Kcal/91 g) during LOS, 98% Kcal; 100% AA. Burn Absent Trauma Absent GI Symptoms Constipation Difficulty In Swallowing,Chewing Food Allergy No Skin Integrity/Comment Sacral open wound. Current % PO Other Minimum of two criteria No #1 Nutrition Diagnosis Inadequate oral intake Diagnosis Progress(for reassessment Continues documentation) Is patient on ventilator? Yes Is Patient Ambulatory and/or Out of Bed No REE-([place]conf[place] bed) [phone] Calculation Used for Recommendations [place] Additional Notes Protein: 1.2-2 g/Kg IBW; 73- 122 g/day. Fluids: 1 ml/Kcal, or as per MD. Nutrition Intervention Nutrition Support: Continue TF-Vital AF 1.2 Inderjit @ 50 ml/hr. Flush: 80 ml water Q 4 hr, or as per MD. Kcal 1,450 Protein (gm) 91 Carbohydrates (gm) 134 Fat (gm) 65 Fluid (mL) 980 Fiber (gm) 6 % RDI: 98% Kcal; 100% AA. Goal #1 Provide at least 75% of energy /protein needs through Enteral Feeding during LOS. Follow-Up By: 05/04/22 Additional Comments Continue monitoring TF tolerance and BM. <DIXIE BROWN - Last Filed: 04/30/22 09:59> Assessment and Plan Assessment and plan: I saw and evaluated the patient. I agree with the findings and the plan of care as documented in the Nurse Practitioner's~note, with the following corrections and additions. Hospitalist Physical - Constitutional Vitals: Temp Pulse Resp BP Pulse Ox 98.3 F 106 H 14 103/64 95 04/30/22 07:52 04/30/22 09:00 04/30/22 09:00 04/30/22 09:00 04/30/22 09:00 HEART Score - HEART Score Troponin: Troponin T 0.031 ng/mL (0.00-0.029) H 04/08/22 17:47 Results - Labs CBC & Chem 7: 04/29/22 04:18 04/29/22 04:18 Labs: Laboratory Last Values WBC 13.5 K/mm3 (4.5-11.0) H 04/29/22 04:18 RBC 2.96 M/mm3 (3.65-5.03) L 04/29/22 04:18 Hgb 8.9 gm/dl (11.8-15.2) L 04/29/22 04:18 Hct 27.7 % (35.5-45.6) L 04/29/22 04:18 MCV 94 fl (84-94) 04/29/22 04:18 MCH 30 pg (28-32) 04/29/22 04:18 MCHC 32 % (32-34) 04/29/22 04:18 RDW 14.0 % (13.2-15.2) 04/29/22 04:18 Plt Count 348 K/mm3 (140-440) 04/29/22 04:18 Lymph % (Auto) 4.3 % (13.4-35.0) L 04/07/22 03:51 [place] % (Auto) 8.8 % (0.0-7.3) H 04/07/22 03:51 Eos % (Auto) 0.1 % (0.0-4.3) 04/07/22 03:51 Baso % (Auto) 0.2 % (0.0-1.8) 04/07/22 03:51 Lymph # (Auto) 0.6 K/mm3 (1.2-5.4) L 04/07/22 03:51 [place] # (Auto) 1.3 K/mm3 (0.0-0.8) H 04/07/22 03:51 Eos # (Auto) 0.0 K/mm3 (0.0-0.4) 04/07/22 03:51 Baso # (Auto) 0.0 K/mm3 (0.0-0.1) 04/07/22 03:51 Add Manual Diff Complete 04/02/22 19:39 Total Counted 100 04/02/22 19:39 Seg Neutrophils % 86.6 % (40.0-70.0) H 04/07/22 03:51 Seg Neuts % (Manual) 94.0 % (40.0-70.0) H 04/02/22 19:39 Band Neutrophils % 0 % 04/02/22 19:39 Lymphocytes % (Manual) 1.0 % (13.4-35.0) L 04/02/22 19:39 Reactive Lymphs % (Man) 0 % 04/02/22 19:39 Monocytes % (Manual) 5.0 % (0.0-7.3) 04/02/22 19:39 Eosinophils % (Manual) 0 % (0.0-4.3) 04/02/22 19:39 Basophils % (Manual) 0 % (0.0-1.8) 04/02/22 19:39 Metamyelocytes % 0 % 04/02/22 19:39 Myelocytes % 0 % 04/02/22 19:39 Promyelocytes % 0 % 04/02/22 19:39 Blast Cells % 0 % 04/02/22 19:39 Nucleated RBC % Not Reportable 04/02/22 19:39 Seg Neutrophils # 12.7 K/mm3 (1.8-7.7) H 04/07/22 03:51 Seg Neutrophils # Man 13.4 K/mm3 (1.8-7.7) H 04/02/22 19:39 Band Neutrophils # 0.0 K/mm3 04/02/22 19:39 Lymphocytes # (Manual) 0.1 K/mm3 (1.2-5.4) L 04/02/22 19:39 Abs React Lymphs (Man) 0.0 K/mm3 04/02/22 19:39 Monocytes # (Manual) 0.7 K/mm3 (0.0-0.8) 04/02/22 19:39 Eosinophils # (Manual) 0.0 K/mm3 (0.0-0.4) 04/02/22 19:39 Basophils # (Manual) 0.0 K/mm3 (0.0-0.1) 04/02/22 19:39 Metamyelocytes # 0.0 K/mm3 04/02/22 19:39 Myelocytes # 0.0 K/mm3 04/02/22 19:39 Promyelocytes # 0.0 K/mm3 04/02/22 19:39 Blast Cells # 0.0 K/mm3 04/02/22 19:39 WBC Morphology Not Reportable 04/02/22 19:39 Hypersegmented Neuts Not Reportable 04/02/22 19:39 Hyposegmented Neuts Not Reportable 04/02/22 19:39 Hypogranular Neuts Not Reportable 04/02/22 19:39 Smudge Cells Not Reportable 04/02/22 19:39 Toxic Granulation Not Reportable 04/02/22 19:39 Toxic Vacuolation Not Reportable 04/02/22 19:39 Dohle Bodies Not Reportable 04/02/22 19:39 Pelger-Huet Anomaly Not Reportable 04/02/22 19:39 Terry Rods Not Reportable 04/02/22 19:39 Platelet Estimate Consistent w auto 04/02/22 19:39 Clumped Platelets Not Reportable 04/02/22 19:39 Plt Clumps, EDTA Not Reportable 04/02/22 19:39 Large Platelets Not Reportable 04/02/22 19:39 Giant Platelets Not Reportable 04/02/22 19:39 Platelet Satelliting Not Reportable 04/02/22 19:39 Plt Morphology Comment Not Reportable 04/02/22 19:39 RBC Morphology Not Reportable 04/02/22 19:39 Dimorphic RBCs Not Reportable 04/02/22 19:39 Polychromasia Not Reportable 04/02/22 19:39 Hypochromasia Not Reportable 04/02/22 19:39 Poikilocytosis Not Reportable 04/02/22 19:39 Anisocytosis 1+ 04/02/22 19:39 Microcytosis Not Reportable 04/02/22 19:39 Macrocytosis Not Reportable 04/02/22 19:39 Spherocytes Not Reportable 04/02/22 19:39 Pappenheimer Bodies Not Reportable 04/02/22 19:39 Sickle Cells Not Reportable 04/02/22 19:39 Target Cells Not Reportable 04/02/22 19:39 Tear Drop Cells Not Reportable 04/02/22 19:39 Ovalocytes Not Reportable 04/02/22 19:39 Helmet Cells Not Reportable 04/02/22 19:39 [place] Bodies Not Reportable 04/02/22 19:39 [place] Rings Not Reportable 04/02/22 19:39 [place] Cells Not Reportable 04/02/22 19:39 Bite Cells Not Reportable 04/02/22 19:39 Crenated Cell Not Reportable 04/02/22 19:39 Elliptocytes Not Reportable 04/02/22 19:39 Acanthocytes (Spur) Not Reportable 04/02/22 19:39 Rouleaux Not Reportable 04/02/22 19:39 Hemoglobin C Crystals Not Reportable 04/02/22 19:39 Schistocytes Not Reportable 04/02/22 19:39 Malaria parasites Not Reportable 04/02/22 19:39 [place] Bodies Not Reportable 04/02/22 19:39 Hem Pathologist Commnt No 04/02/22 19:39 PT 13.6 Sec. (12.2-14.9) 04/13/22 04:30 INR 0.94 (0.87-1.13) 04/13/22 04:30 APTT 35.7 Sec. (24.2-36.6) 04/07/22 03:51 ABG pH 7.457 pH Units (7.350-7.450) H 04/25/22 09:00 ABG pCO2 61.7 mm Hg 04/25/22 09:00 ABG pO2 66.7 mm Hg (80.0-90.0) L 04/25/22 09:00 ABG HCO3 42.6 mmol/L (20.0-26.0) H 04/25/22 09:00 ABG O2 Saturation 95.7 % (95.0-99.0) 04/25/22 09:00 ABG O2 Content 20.0 (0.0-44) 04/25/22 09:00 ABG Base Excess 15.3 mmol/L (-2.0-3.0) H 04/25/22 09:00 ABG Hemoglobin 8.8 gm/dl (14.0-18.0) L 04/25/22 09:00 ABG Carboxyhemoglobin 1.3 % (0.0-5.0) 04/25/22 09:00 ABG Methemoglobin 0.4 % (0.0-1.5) 04/25/22 09:00 Oxyhemoglobin 94.1 % (95.0-99.0) L 04/25/22 09:00 FiO2 35 % 04/25/22 09:00 Sodium 138 mmol/L (137-145) 04/29/22 04:18 Potassium 4.3 mmol/L (3.6-5.0) 04/29/22 04:18 Chloride 95.2 mmol/L (98-107) L 04/29/22 04:18 Carbon Dioxide 38 mmol/L (22-30) H 04/29/22 04:18 Anion Gap 9 mmol/L 04/29/22 04:18 BUN 19 mg/dL (9-20) 04/29/22 04:18 Creatinine < 0.2 mg/dL (0.8-1.3) L 04/29/22 04:18 Estimated GFR > 60 ml/min 04/29/22 04:18 BUN/Creatinine Ratio 95 % 04/29/22 04:18 Glucose 116 mg/dL (75-100) H 04/29/22 04:18 POC Glucose 128 mg/dL (70-105) H 04/20/22 11:40 Lactic Acid 1.90 mmol/L (0.7-2.0) 04/02/22 19:39 Calcium 8.7 mg/dL (8.4-10.2) 04/29/22 04:18 Phosphorus 3.80 mg/dL (2.5-4.5) 04/29/22 04:18 Magnesium 1.80 mg/dL (1.7-2.3) 04/29/22 04:18 Total Bilirubin 0.80 mg/dL (0.1-1.2) 04/02/22 19:39 AST 15 units/L (5-40) 04/02/22 19:39 ALT 9 units/L (7-56) 04/02/22 19:39 Alkaline Phosphatase 43 units/L (35-129) 04/02/22 19:39 Total Creatine Kinase 46 units/L (55-170) L 04/08/22 17:47 CK-MB (CK-2) 2.6 ng/mL (0.0-4.0) 04/08/22 17:47 CK-MB (CK-2) Rel Index 5.6 (0-4) H 04/08/22 17:47 Troponin T 0.031 ng/mL (0.00-0.029) H 04/08/22 17:47 C-Reactive Protein 31.60 mg/dL (0.00-1.30) H 04/04/22 04:18 Total Protein 4.6 g/dL (6.3-8.2) L 04/02/22 19:39 Albumin 2.7 g/dL (3.9-5) L 04/02/22 19:39 Albumin/Globulin Ratio 1.4 % 04/02/22 19:39 Triglycerides 80 mg/dL (2-149) 04/02/22 19:39 Cholesterol 94 mg/dL (50-199) 04/02/22 19:39 LDL Cholesterol Direct 27 mg/dL (50-130) L 04/02/22 19:39 HDL Cholesterol 47 mg/dL (40-59) 04/02/22 19:39 Cholesterol/HDL Ratio 2.00 % 04/02/22 19:39 Procalcitonin 0.08 ng/mL (<0.15) 04/04/22 04:18 Urine Color Aracely (Yellow) 04/05/22 17:45 Urine Turbidity Cloudy (Clear) 04/05/22 17:45 Urine pH 5.0 (5.0-7.0) 04/05/22 17:45 Ur Specific [place] 1.021 (1.003-1.030) 04/05/22 17:45 Urine Protein 30 mg/dl mg/dL (Negative) 04/05/22 17:45 Urine Glucose (UA) Neg mg/dL (Negative) 04/05/22 17:45 Urine Ketones Tr mg/dL (Negative) 04/05/22 17:45 Urine Blood Sm (Negative) 04/05/22 17:45 Urine Nitrite Neg (Negative) 04/05/22 17:45 Urine Bilirubin Neg (Negative) 04/05/22 17:45 Urine Urobilinogen < 2.0 mg/dL (<2.0) 04/05/22 17:45 Ur Leukocyte Esterase Tr (Negative) 04/05/22 17:45 Urine WBC (Auto) 8.0 /HPF (0.0-6.0) H 04/05/22 17:45 Urine RBC (Auto) 3.0 /HPF (0.0-6.0) 04/05/22 17:45 U Epithel Cells (Auto) 2.0 /HPF (0-13.0) 04/05/22 17:45 Urine Bacteria (Auto) 1+ /HPF (Negative) 04/02/22 Unknown Hyaline Casts 1 /LPF 04/05/22 17:45 Urine Mucus 3+ /HPF 04/05/22 17:45 Nasal Screen MRSA (PCR) Negative (Negative) 04/05/22 12:37 Vancomycin Trough 6.0 ug/mL (5.0-20.0) 04/05/22 18:53 Coronavirus (PCR) Negative (Negative) 04/07/22 14:52 Perez/IV: Voiding Method Condom Catheter Active Medications - Current Medications Current Medications: Generic Name Dose Route Start Last Admin Trade Name Freq PRN Reason Stop Dose Admin Acetaminophen 650 mg 04/02/22 23:53 04/21/22 16:23 Acetaminophen 325 Mg Tab PO 650 mg Q6H PRN Administration Pain MILD(1-3)/Fever >100.5/FAITH Acetylcysteine 200 mg 04/21/22 16:00 04/30/22 08:57 Acetylcysteine 20% 200 Mg/1 Ml *For Inhalation Use* INHALATION 200 mg Q8HRT SEGUNDO Administration Albuterol 2.5 mg 04/06/22 16:00 04/30/22 08:57 Albuterol 2.5 Mg/3 Ml Nebu IH 2.5 mg Q8HRT SEGUNDO Administration Bisacodyl 10 mg 04/07/22 09:44 04/12/22 10:06 Bisacodyl 10 Mg Rect Supp DC 10 mg QDAY PRN Administration Constipation Dextrose 50 ml 04/06/22 17:54 Dextrose 50% In Water (25gm) 50 Ml Syringe IV Q30MIN PRN Hypoglycemia Protocol Docusate Sodium 100 mg 04/28/22 10:00 04/30/22 09:27 Docusate Sodium 100 Mg/10 Ml Oral Liqd FEEDTUBE Not Given BID SEGUNDO Famotidine 20 mg 04/06/22 10:00 04/30/22 09:26 Famotidine 20 Mg Tab FEEDTUBE 20 mg BID SEGUNDO Administration Fentanyl 50 mcg 04/04/22 15:56 04/29/22 21:40 Fentanyl 100 Mcg/2 Ml Inj IV 50 mcg Q2HR PRN Administration For CPOT of greater than 3 Heparin Sodium (Porcine) 5,000 unit 04/03/22 06:00 04/30/22 06:48 Heparin 5,000 Unit/1 Ml Vial SUB-Q 5,000 unit Q8HR SEGUNDO Administration Insulin Human Regular 0 units 04/06/22 18:00 04/30/22 07:47 Insulin Regular, Human 100 Units/1 Ml SUB-Q Not Given Q6H [facility] Protocol Magnesium Hydroxide 30 ml 04/02/22 23:53 Magnesium Hydroxide (Mom) Oral Liqd Udc PO Q4H PRN Constipation Metoprolol Tartrate 25 mg 04/16/22 18:00 04/30/22 06:48 Metoprolol Tartrate 25 Mg Tab FEEDTUBE 25 mg Q6HR SEGUNDO Administration Ondansetron HCl 4 mg 04/02/22 23:53 Ondansetron 4 Mg/2 Ml Inj IV Q8H PRN Nausea And Vomiting Polyethylene Glycol 17 gm 04/08/22 10:00 04/30/22 09:27 Polyethylene Glycol 3350 17 Gm Powder PO Not Given QDAY SEGUNDO Quetiapine Fumarate 50 mg 04/28/22 10:00 04/30/22 09:26 Quetiapine 25 Mg Tab FEEDTUBE 50 mg BID SEGUNDO Administration Senna 17.6 mg 04/28/22 10:00 04/30/22 09:27 Sennosides Oral Liqd 8.8 Mg/5 Ml Oral Liqd FEEDTUBE Not Given Q12HR SEGUNDO Sodium Chloride 10 ml 04/03/22 10:00 04/30/22 09:26 Sodium Chloride 0.9% 10 Ml Flush Syringe IV 10 ml BID SEGUNDO Administration Sodium Chloride 10 ml 04/02/22 23:53 Sodium Chloride 0.9% 10 Ml Flush Syringe IV PRN PRN LINE FLUSH Nutrition/Malnutrition Assess - Dietary Evaluation Nutrition/Malnutrition Findings: Nutrition Notes Start: 04/04/22 13:13 Freq: Status: Active Protocol: Document 04/27/22 11:53 COLLEEN (Rec: 04/27/22 12:21 COLLEEN [id number]) Nutrition Notes Initial or Follow up Reassessment Current Diagnosis Coronary Artery Disease, Decubitus(Pressure Ulcer), Sepsis,Respiratory Failure, Malnutrition Other Pertinent Diagnosis HCAP, HFpEF, ALS, Pleural Effusion, R-Lung Collapse, .. . Current Diet TF-Vital AF 1.2 Inderjit @ 50 ml/hr (since D 04/15). Labs/Tests 04/27: Cl 93.2, CO2 37, Crea < 0.2, Glu 114. Pertinent Medications 04/27: Nutritionally unremarkable. Height 5 ft 4.8 in Weight 46.8 kg [place] Body Weight (kg) 61.27 BMI 17.2 Weight change and time frame No body weight change reported in 3 weeks. Weight Status Underweight Subjective/Other Information RD consult for routine F/U on TF tolerance/continuation. TF continues as prescribed, and well tolerated, according to RN notes. Pt continues on Mechanical ventilation, O2 saturation @ 96%, according to Physical Assessment Histroy notes. Pt continues to present constipation, according to Physical Assessment Histroy notes. 3 failed attempts to wean Pt from Mechanical Ventilation, [facility]. Pt is pending authorization for LTAC placement, according to Progress notes. Percent of energy/protein needs met: Prescribed TF-Vital AF 1.2 Inderjit @ 50 ml/hr provides for energy/protein needs (1,450 Kcal/91 g) during LOS, 98% Kcal; 100% AA. Burn Absent Trauma Absent GI Symptoms Constipation Difficulty In Swallowing,Chewing Food Allergy No Skin Integrity/Comment Sacral open wound. Current % PO Other Minimum of two criteria No #1 Nutrition Diagnosis Inadequate oral intake Diagnosis Progress(for reassessment Continues documentation) Is patient on ventilator? Yes Is Patient Ambulatory and/or Out of Bed No REE-([place]-confined to bed) [phone] [facility] Additional Notes Protein: 1.2-2 g/Kg IBW; 73- 122 g/day. Fluids: 1 ml/Kcal, or as per MD. Nutrition Intervention Nutrition Support: Continue TF-Vital AF 1.2 Inderjit @ 50 ml/hr. Flush: 80 ml water Q 4 hr, or as per MD. Kcal 1,450 Protein (gm) 91 Carbohydrates (gm) 134 Fat (gm) 65 Fluid (mL) 980 Fiber (gm) 6 % RDI: 98% Kcal; 100% AA. Goal #1 Provide at least 75% of energy /protein needs through Enteral Feeding during LOS. Follow-Up By: 05/04/22 Additional Comments Continue monitoring TF tolerance and BM.
[2022-04-30] MEDS: METOPROLOL TARTRATE 25 MG TAB FEEDTUBE SCH ×3 (00:59→12:40)
[2022-04-30] MEDS: HEPARIN 5,000 UNIT/1 ML VIAL SUB-Q SCH ×3 (06:48→22:51)
[2022-04-30] MEDS: INSULIN REGULAR, HUMAN 100 UNITS/1 ML SUB-Q SCH ×4 (07:46→17:12)
[2022-04-30] MEDS: FAMOTIDINE 20 MG TAB FEEDTUBE SCH ×3 (07:47→22:51)
[2022-04-30] MEDS: ALBUTEROL 2.5 MG/3 ML NEBU IH SCH ×3 (08:57→23:33)
[2022-04-30] MEDS: ACETYLCYSTEINE 20% 200 MG/1 ML *FOR INHALATION USE INHALATION SCH ×3 (08:57→23:33)
[2022-04-30] MEDS: QUEtiapine 25 MG TAB FEEDTUBE SCH ×2 (09:26→22:51)
[2022-04-30] MEDS: SENNOSIDES ORAL LIQD 8.8 MG/5 ML ORAL LIQD FEEDTUBE SCH ×2 (09:27→22:51)
[2022-04-30] MEDS: POLYETHYLENE GLYCOL 3350 17 GM POWDER PO SCH (09:27)
[2022-04-30] MEDS: DOCUSATE SODIUM 100 MG/10 ML ORAL LIQD FEEDTUBE SCH ×2 (09:27→22:51)
--- NOTE | 2022-04-30 10:10 | Progress Note ---
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 -Monitoring renal function, hemodynamics and electrolyte profile -Accuchecks with glycemic control. target blood glucose 140-180 mg/dL. Avoid hypoglycemia -Continue enteric nutritional support, bowel regimen -VTE prophylaxis- Heparin -Avoid nephrotoxins and renally dose all medications -Stress ulcer prophylaxis- Famotidine -Mobility, frequent turning, off loading per facility protocol to prevent pressure ulcers -Maintain sleep wake cycle, avoid benzodiazepines. -Limit delirium CONDITION:CRITICAL PROGNOSIS: GUARDED CODE STATUS; FULL CODE The high probability of a clinically significant, sudden or life threatening deterioration of the respiratory, cardiovascular, neurology system required my full and direct attention, intervention and personal management. The aggregate critical care time was [33] minutes. 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 Vitals, labs, medications, chart and imaging reviewed. Discussed with respiratory and nursing care staff. s/p trach and PEG. On PEEP 10 and FIO2 45 % No reported fevers, no vomiting, no diarrhea Patient continue to fail PSV trial. Per case management patient was denied for LTAC, now possible SNF placement. Objective Vital Signs - 12hr 04/29/22 04/29/2222 23:00 23:27 23:31 Temperature 99.3 F Pulse Rate 112 H 110 H Pulse Rate [ Anterior Bilateral Throughout] Pulse Rate [ Bilateral Throughout] Pulse Rate [ From Monitor] Respiratory 15 Rate Respiratory Rate [Anterior Bilateral Throughout] Respiratory Rate [Bilateral Throughout] Blood Pressure 87/53 94/54 O2 Sat by Pulse 99 99 Oximetry O2 Sat by Pulse Oximetry [ Assessment] 04/29/22 04/30/22 04/30/22 23:38 00:00 00:59 Temperature Pulse Rate 113 H 118 H Pulse Rate [ 111 H Anterior Bilateral Throughout] Pulse Rate [ 110 H Bilateral Throughout] Pulse Rate [ 111 H From Monitor] Respiratory 15 Rate Respiratory 18 Rate [Anterior Bilateral Throughout] Respiratory 18 Rate [Bilateral Throughout] Blood Pressure 90/56 99/67 O2 Sat by Pulse 100 Oximetry O2 Sat by Pulse Oximetry [ Assessment] 04/30/22 04/30/22 04/30/22 01:00 02:00 03:00 Temperature Pulse Rate 118 H 113 H 109 H Pulse Rate [ Anterior Bilateral Throughout] Pulse Rate [ Bilateral Throughout] Pulse Rate [ From Monitor] Respiratory 14 15 14 Rate Respiratory Rate [Anterior Bilateral Throughout] Respiratory Rate [Bilateral Throughout] Blood Pressure 98/63 98/62 97/57 O2 Sat by Pulse 98 94 95 Oximetry O2 Sat by Pulse Oximetry [ Assessment] 04/30/22 04/30/22 04/30/22 04:00 04:32 05:00 Temperature 98.9 F Pulse Rate 113 H 113 H Pulse Rate [ Anterior Bilateral Throughout] Pulse Rate [ Bilateral Throughout] Pulse Rate [ 114 H From Monitor] Respiratory 21 21 Rate Respiratory Rate [Anterior Bilateral Throughout] Respiratory Rate [Bilateral Throughout] Blood Pressure 108/66 103/62 O2 Sat by Pulse 92 95 Oximetry O2 Sat by Pulse 98 Oximetry [ Assessment] 04/30/22 04/30/22 04/30/22 06:00 06:48 07:00 Temperature Pulse Rate 112 H 110 H 104 H Pulse Rate [ Anterior Bilateral Throughout] Pulse Rate [ Bilateral Throughout] Pulse Rate [ From Monitor] Respiratory 17 17 Rate Respiratory Rate [Anterior Bilateral Throughout] Respiratory Rate [Bilateral Throughout] Blood Pressure 108/68 105/65 103/68 O2 Sat by Pulse 95 96 Oximetry O2 Sat by Pulse Oximetry [ Assessment] 04/30/22 04/30/22 04/30/22 07:52 08:00 08:12 Temperature 98.3 F Pulse Rate 105 H 104 H Pulse Rate [ Anterior Bilateral Throughout] Pulse Rate [ Bilateral Throughout] Pulse Rate [ 104 H From Monitor] Respiratory 15 14 Rate Respiratory Rate [Anterior Bilateral Throughout] Respiratory Rate [Bilateral Throughout] Blood Pressure 104/67 O2 Sat by Pulse 95 95 Oximetry O2 Sat by Pulse Oximetry [ Assessment] 04/30/22 04/30/22 08:57 09:00 Temperature Pulse Rate 107 H 106 H Pulse Rate [ Anterior Bilateral Throughout] Pulse Rate [ Bilateral Throughout] Pulse Rate [ From Monitor] Respiratory 14 Rate Respiratory Rate [Anterior Bilateral Throughout] Respiratory Rate [Bilateral Throughout] Blood Pressure 103/64 103/64 O2 Sat by Pulse 94 95 Oximetry O2 Sat by Pulse 96 Oximetry [ Assessment] Constitutional: alert, appears uncomfortable, other (trach to vent, with mildly increased respiratory effort at rest) Eyes: non-icteric ENT: oropharynx moist, other (+ midline tracheostomy) Neck: supple, no lymphadenopathy, no JVD Effort: mildly labored Ascultation: Bilateral: diminished breath sounds (bases), rhonchi Percussion: Bilateral: not dull Cardiovascular: regular rate and rhythm, other (S1,S2) Gastrointestinal: normoactive bowel sounds, soft, non-tender, non-distended Integumentary: normal Extremities: no cyanosis, no edema, pink and warm, pulses normal Neurologic: pupils equal and round, other (functional quadriplegia) Psychiatric: mood appropriate, affect normal CBC and BMP: 05/02/22 04:29 04/29/22 04:18 ABG, PT/INR, D-dimer: ABG ABG pH 7.457 pH Units (7.350-7.450) H 04/25/22 09:00 ABG pCO2 61.7 mm Hg 04/25/22 09:00 ABG pO2 66.7 mm Hg (80.0-90.0) L 04/25/22 09:00 ABG O2 Saturation 95.7 % (95.0-99.0) 04/25/22 09:00 PT/INR, D-dimer PT 13.6 Sec. (12.2-14.9) 04/13/22 04:30 INR 0.94 (0.87-1.13) 04/13/22 04:30 Abnormal lab findings: Abnormal Labs 04/02/22 04/02/22 04/02/22 19:39 19:39 19:39 WBC 14.3 H RBC Hgb Hct MCV 96 H Plt Count 104 L Lymph % (Auto) Mcpherson % (Auto) Lymph # (Auto) Mcpherson # (Auto) Seg Neutrophils % Seg Neuts % (Manual) 94.0 H Lymphocytes % (Manual) 1.0 L Seg Neutrophils # Seg Neutrophils # Man 13.4 H Lymphocytes # (Manual) 0.1 L PT 15.9 H INR 1.14 H ABG pH ABG pO2 ABG HCO3 ABG O2 Saturation ABG Base Excess ABG Hemoglobin Oxyhemoglobin Sodium 151 H Potassium Chloride Carbon Dioxide BUN Creatinine 0.5 L Glucose POC Glucose Calcium 8.2 L Phosphorus Magnesium 1.60 L Total Creatine Kinase CK-MB (CK-2) Rel Index Troponin T 0.048 H C-Reactive Protein Total Protein 4.6 L Albumin 2.7 L LDL Cholesterol Direct 27 L Urine WBC (Auto) 04/02/22 04/03/22 04/03/22 19:42 05:14 06:30 WBC RBC Hgb Hct MCV Plt Count Lymph % (Auto) Mcpherson % (Auto) Lymph # (Auto) Mcpherson # (Auto) Seg Neutrophils % Seg Neuts % (Manual) Lymphocytes % (Manual) Seg Neutrophils # Seg Neutrophils # Man Lymphocytes # (Manual) PT INR ABG pH 7.471 H 7.496 H ABG pO2 47.8 L 91.0 H ABG HCO3 30.6 H ABG O2 Saturation 94.4 L ABG Base Excess 6.2 H ABG Hemoglobin 11.0 L 12.8 L Oxyhemoglobin 93.1 L Sodium 149 H Potassium 3.4 L Chloride Carbon Dioxide BUN Creatinine 0.4 L Glucose POC Glucose Calcium Phosphorus Magnesium Total Creatine Kinase CK-MB (CK-2) Rel Index Troponin T C-Reactive Protein Total Protein Albumin LDL Cholesterol Direct Urine WBC (Auto) 04/04/22 04/04/22 04/04/22 04:18 04:18 05:50 WBC 11.8 H RBC Hgb Hct MCV Plt Count 132 L Lymph % (Auto) Mcpherson % (Auto) Lymph # (Auto) Mcpherson # (Auto) Seg Neutrophils % Seg Neuts % (Manual) Lymphocytes % (Manual) Seg Neutrophils # Seg Neutrophils # Man Lymphocytes # (Manual) PT INR ABG pH 7.517 H ABG pO2 115.5 H ABG HCO3 29.9 H ABG O2 Saturation ABG Base Excess 6.7 H ABG Hemoglobin 12.3 L Oxyhemoglobin Sodium Potassium 3.5 L Chloride Carbon Dioxide 31 H BUN Creatinine 0.3 L Glucose 153 H POC Glucose Calcium Phosphorus 1.40 L Magnesium 1.50 L Total Creatine Kinase CK-MB (CK-2) Rel Index Troponin T C-Reactive Protein 31.60 H Total Protein Albumin LDL Cholesterol Direct Urine WBC (Auto) 04/05/22 04/05/22 04/05/22 02:50 05:25 11:28 WBC RBC Hgb Hct MCV Plt Count Lymph % (Auto) Mcpherson % (Auto) Lymph # (Auto) Mcpherson # (Auto) Seg Neutrophils % Seg Neuts % (Manual) Lymphocytes % (Manual) Seg Neutrophils # Seg Neutrophils # Man Lymphocytes # (Manual) PT INR ABG pH 7.455 H ABG pO2 50.7 L ABG HCO3 30.5 H ABG O2 Saturation 89.4 L ABG Base Excess 5.9 H ABG Hemoglobin 11.8 L Oxyhemoglobin 88.2 L Sodium Potassium Chloride Carbon Dioxide 32 H BUN Creatinine 0.2 L Glucose 110 H POC Glucose 124 H Calcium 7.9 L Phosphorus Magnesium Total Creatine Kinase CK-MB (CK-2) Rel Index Troponin T C-Reactive Protein Total Protein Albumin LDL Cholesterol Direct Urine WBC (Auto) 04/05/22 04/05/22 04/06/22 17:45 Unknown 04:00 WBC RBC 3.55 L Hgb 11.1 L 11.5 L Hct 33.2 L 35.1 L MCV Plt Count 113 L 114 L Lymph % (Auto) Mcpherson % (Auto) Lymph # (Auto) Mcpherson # (Auto) Seg Neutrophils % Seg Neuts % (Manual) Lymphocytes % (Manual) Seg Neutrophils # Seg Neutrophils # Man Lymphocytes # (Manual) PT INR ABG pH ABG pO2 ABG HCO3 ABG O2 Saturation ABG Base Excess ABG Hemoglobin Oxyhemoglobin Sodium Potassium Chloride Carbon Dioxide BUN Creatinine Glucose POC Glucose Calcium Phosphorus Magnesium Total Creatine Kinase CK-MB (CK-2) Rel Index Troponin T C-Reactive Protein Total Protein Albumin LDL Cholesterol Direct Urine WBC (Auto) 8.0 H 04/06/22 04/06/22 04/07/22 04:00 08:30 00:04 WBC RBC Hgb Hct MCV Plt Count Lymph % (Auto) Mcpherson % (Auto) Lymph # (Auto) Mcpherson # (Auto) Seg Neutrophils % Seg Neuts % (Manual) Lymphocytes % (Manual) Seg Neutrophils # Seg Neutrophils # Man Lymphocytes # (Manual) PT INR ABG pH ABG pO2 60.8 L ABG HCO3 30.5 H ABG O2 Saturation 93.3 L ABG Base Excess 4.9 H ABG Hemoglobin 12.4 L Oxyhemoglobin 92.1 L Sodium Potassium 3.0 L Chloride Carbon Dioxide BUN Creatinine < 0.2 L Glucose 130 H POC Glucose 117 H Calcium 8.1 L Phosphorus Magnesium Total Creatine Kinase CK-MB (CK-2) Rel Index Troponin T C-Reactive Protein Total Protein Albumin LDL Cholesterol Direct Urine WBC (Auto) 04/07/22 04/07/22 04/07/22 03:51 03:51 03:51 WBC 14.6 H RBC 3.57 L Hgb 11.1 L Hct 33.2 L MCV Plt Count 118 L Lymph % (Auto) 4.3 L Mcpherson % (Auto) 8.8 H Lymph # (Auto) 0.6 L Mcpherson # (Auto) 1.3 H Seg Neutrophils % 86.6 H Seg Neuts % (Manual) Lymphocytes % (Manual) Seg Neutrophils # 12.7 H Seg Neutrophils # Man Lymphocytes # (Manual) PT 15.2 H INR ABG pH ABG pO2 ABG HCO3 ABG O2 Saturation ABG Base Excess ABG Hemoglobin Oxyhemoglobin Sodium 133 L Potassium Chloride 96.0 L Carbon Dioxide 31 H BUN Creatinine 0.2 L Glucose 130 H POC Glucose Calcium 8.0 L Phosphorus Magnesium Total Creatine Kinase CK-MB (CK-2) Rel Index Troponin T C-Reactive Protein Total Protein Albumin LDL Cholesterol Direct Urine WBC (Auto) 04/07/22 04/07/22 04/08/22 04:25 09:10 04:49 WBC 16.1 H RBC 3.54 L Hgb 10.9 L Hct 33.3 L MCV Plt Count Lymph % (Auto) Mcpherson % (Auto) Lymph # (Auto) Mcpherson # (Auto) Seg Neutrophils % Seg Neuts % (Manual) Lymphocytes % (Manual) Seg Neutrophils # Seg Neutrophils # Man Lymphocytes # (Manual) PT INR ABG pH ABG pO2 71.0 L 63.4 L ABG HCO3 31.5 H 40.0 H ABG O2 Saturation 94.9 L ABG Base Excess 5.9 H 13.6 H ABG Hemoglobin 11.3 L 9.0 L Oxyhemoglobin 93.6 L Sodium Potassium Chloride Carbon Dioxide BUN Creatinine Glucose POC Glucose Calcium Phosphorus Magnesium Total Creatine Kinase CK-MB (CK-2) Rel Index Troponin T C-Reactive Protein Total Protein Albumin LDL Cholesterol Direct Urine WBC (Auto) 04/08/22 04/08/22 04/08/22 04:49 09:53 10:25 WBC RBC Hgb Hct MCV Plt Count Lymph % (Auto) Mcpherson % (Auto) Lymph # (Auto) Mcpherson # (Auto) Seg Neutrophils % Seg Neuts % (Manual) Lymphocytes % (Manual) Seg Neutrophils # Seg Neutrophils # Man Lymphocytes # (Manual) PT INR ABG pH ABG pO2 ABG HCO3 34.7 H ABG O2 Saturation ABG Base Excess 7.9 H ABG Hemoglobin 11.0 L Oxyhemoglobin Sodium 136 L Potassium Chloride 97.7 L Carbon Dioxide 33 H BUN Creatinine 0.2 L Glucose 155 H POC Glucose Calcium Phosphorus Magnesium Total Creatine Kinase CK-MB (CK-2) Rel Index Troponin T 0.030 H C-Reactive Protein Total Protein Albumin LDL Cholesterol Direct Urine WBC (Auto) 04/08/22 04/08/22 04/08/22 11:19 17:47 18:06 WBC RBC Hgb Hct MCV Plt Count Lymph % (Auto) Mcpherson % (Auto) Lymph # (Auto) Mcpherson # (Auto) Seg Neutrophils % Seg Neuts % (Manual) Lymphocytes % (Manual) Seg Neutrophils # Seg Neutrophils # Man Lymphocytes # (Manual) PT INR ABG pH ABG pO2 ABG HCO3 ABG O2 Saturation ABG Base Excess ABG Hemoglobin Oxyhemoglobin Sodium Potassium Chloride Carbon Dioxide BUN Creatinine Glucose POC Glucose 121 H Calcium Phosphorus Magnesium Total Creatine Kinase 31 L 46 L CK-MB (CK-2) Rel Index 6.4 H 5.6 H Troponin T 0.030 H 0.031 H C-Reactive Protein Total Protein Albumin LDL Cholesterol Direct Urine WBC (Auto) 04/09/22 04/09/22 04/09/22 04:35 04:35 11:24 WBC 11.5 H RBC 3.16 L Hgb 9.9 L Hct 29.4 L MCV Plt Count 131 L Lymph % (Auto) Mcpherson % (Auto) Lymph # (Auto) Mcpherson # (Auto) Seg Neutrophils % Seg Neuts % (Manual) Lymphocytes % (Manual) Seg Neutrophils # Seg Neutrophils # Man Lymphocytes # (Manual) PT INR ABG pH ABG pO2 ABG HCO3 ABG O2 Saturation ABG Base Excess ABG Hemoglobin Oxyhemoglobin Sodium Potassium Chloride 97.1 L Carbon Dioxide 35 H BUN Creatinine < 0.2 L Glucose 145 H POC Glucose 147 H Calcium Phosphorus Magnesium Total Creatine Kinase CK-MB (CK-2) Rel Index Troponin T C-Reactive Protein Total Protein Albumin LDL Cholesterol Direct Urine WBC (Auto) 04/09/22 04/09/22 04/09/22 13:00 17:32 23:48 WBC RBC Hgb Hct MCV Plt Count Lymph % (Auto) Mcpherson % (Auto) Lymph # (Auto) Mcpherson # (Auto) Seg Neutrophils % Seg Neuts % (Manual) Lymphocytes % (Manual) Seg Neutrophils # Seg Neutrophils # Man Lymphocytes # (Manual) PT INR ABG pH ABG pO2 66.6 L ABG HCO3 38.2 H ABG O2 Saturation 94.4 L ABG Base Excess 10.7 H ABG Hemoglobin 10.7 L Oxyhemoglobin 92.8 L Sodium Potassium Chloride Carbon Dioxide BUN Creatinine Glucose POC Glucose 143 H 114 H Calcium Phosphorus Magnesium Total Creatine Kinase CK-MB (CK-2) Rel Index Troponin T C-Reactive Protein Total Protein Albumin LDL Cholesterol Direct Urine WBC (Auto) 04/10/22 04/10/22 04/10/22 04:48 04:48 05:34 WBC RBC 2.91 L Hgb 9.1 L Hct 27.7 L MCV 95 H Plt Count Lymph % (Auto) Mcpherson % (Auto) Lymph # (Auto) Mcpherson # (Auto) Seg Neutrophils % Seg Neuts % (Manual) Lymphocytes % (Manual) Seg Neutrophils # Seg Neutrophils # Man Lymphocytes # (Manual) PT INR ABG pH ABG pO2 ABG HCO3 ABG O2 Saturation ABG Base Excess ABG Hemoglobin Oxyhemoglobin Sodium Potassium Chloride 95.7 L Carbon Dioxide 38 H BUN Creatinine < 0.2 L Glucose 118 H POC Glucose 127 H Calcium Phosphorus Magnesium Total Creatine Kinase CK-MB (CK-2) Rel Index Troponin T C-Reactive Protein Total Protein Albumin LDL Cholesterol Direct Urine WBC (Auto) 04/10/22 04/11/22 04/11/22 23:10 04:15 04:15 WBC 17.2 H RBC 2.98 L Hgb 9.2 L Hct 27.9 L MCV Plt Count Lymph % (Auto) Mcpherson % (Auto) Lymph # (Auto) Mcpherson # (Auto) Seg Neutrophils % Seg Neuts % (Manual) Lymphocytes % (Manual) Seg Neutrophils # Seg Neutrophils # Man Lymphocytes # (Manual) PT INR ABG pH ABG pO2 ABG HCO3 ABG O2 Saturation ABG Base Excess ABG Hemoglobin Oxyhemoglobin Sodium Potassium Chloride 96.1 L Carbon Dioxide 35 H BUN Creatinine < 0.2 L Glucose 138 H POC Glucose 106 H Calcium 8.3 L Phosphorus Magnesium Total Creatine Kinase CK-MB (CK-2) Rel Index Troponin T C-Reactive Protein Total Protein Albumin LDL Cholesterol Direct Urine WBC (Auto) 04/11/22 04/11/22 04/11/22 05:31 13:18 16:20 WBC RBC Hgb Hct MCV Plt Count Lymph % (Auto) Mcpherson % (Auto) Lymph # (Auto) Mcpherson # (Auto) Seg Neutrophils % Seg Neuts % (Manual) Lymphocytes % (Manual) Seg Neutrophils # Seg Neutrophils # Man Lymphocytes # (Manual) PT INR ABG pH ABG pO2 57.8 L ABG HCO3 40.5 H ABG O2 Saturation 90.6 L ABG Base Excess 12.6 H ABG Hemoglobin 10.5 L Oxyhemoglobin 89.0 L Sodium Potassium Chloride Carbon Dioxide BUN Creatinine Glucose POC Glucose 129 H 132 H Calcium Phosphorus Magnesium Total Creatine Kinase CK-MB (CK-2) Rel Index Troponin T C-Reactive Protein Total Protein Albumin LDL Cholesterol Direct Urine WBC (Auto) 04/11/22 04/11/22 04/12/22 17:29 23:17 04:00 WBC 17.4 H RBC 2.96 L Hgb 9.0 L Hct 28.0 L MCV 95 H Plt Count Lymph % (Auto) Mcpherson % (Auto) Lymph # (Auto) Mcpherson # (Auto) Seg Neutrophils % Seg Neuts % (Manual) Lymphocytes % (Manual) Seg Neutrophils # Seg Neutrophils # Man Lymphocytes # (Manual) PT INR ABG pH ABG pO2 ABG HCO3 ABG O2 Saturation ABG Base Excess ABG Hemoglobin Oxyhemoglobin Sodium Potassium Chloride Carbon Dioxide BUN Creatinine Glucose POC Glucose 125 H 151 H Calcium Phosphorus Magnesium Total Creatine Kinase CK-MB (CK-2) Rel Index Troponin T C-Reactive Protein Total Protein Albumin LDL Cholesterol Direct Urine WBC (Auto) 04/12/22 04/12/22 04/12/22 04:00 17:03 23:39 WBC RBC Hgb Hct MCV Plt Count Lymph % (Auto) Mcpherson % (Auto) Lymph # (Auto) Mcpherson # (Auto) Seg Neutrophils % Seg Neuts % (Manual) Lymphocytes % (Manual) Seg Neutrophils # Seg Neutrophils # Man Lymphocytes # (Manual) PT INR ABG pH ABG pO2 ABG HCO3 ABG O2 Saturation ABG Base Excess ABG Hemoglobin Oxyhemoglobin Sodium Potassium Chloride 97.4 L Carbon Dioxide 37 H BUN Creatinine < 0.2 L Glucose 127 H POC Glucose 106 H 107 H Calcium Phosphorus Magnesium Total Creatine Kinase CK-MB (CK-2) Rel Index Troponin T C-Reactive Protein Total Protein Albumin LDL Cholesterol Direct Urine WBC (Auto) 04/13/22 04/13/22 04/13/22 04:30 04:30 17:39 WBC 14.1 H RBC 2.66 L Hgb 8.4 L Hct 25.5 L MCV 96 H Plt Count Lymph % (Auto) Mcpherson % (Auto) Lymph # (Auto) Mcpherson # (Auto) Seg Neutrophils % Seg Neuts % (Manual) Lymphocytes % (Manual) Seg Neutrophils # Seg Neutrophils # Man Lymphocytes # (Manual) PT INR ABG pH ABG pO2 ABG HCO3 ABG O2 Saturation ABG Base Excess ABG Hemoglobin Oxyhemoglobin Sodium Potassium Chloride 93.9 L Carbon Dioxide 39 H BUN Creatinine < 0.2 L Glucose POC Glucose 134 H Calcium Phosphorus 1.90 L Magnesium Total Creatine Kinase CK-MB (CK-2) Rel Index Troponin T C-Reactive Protein Total Protein Albumin LDL Cholesterol Direct Urine WBC (Auto) 04/14/22 04/14/22 04/14/22 05:03 05:03 09:10 WBC 15.6 H RBC 3.02 L Hgb 9.3 L Hct 28.8 L MCV 95 H Plt Count Lymph % (Auto) Mcpherson % (Auto) Lymph # (Auto) Mcpherson # (Auto) Seg Neutrophils % Seg Neuts % (Manual) Lymphocytes % (Manual) Seg Neutrophils # Seg Neutrophils # Man Lymphocytes # (Manual) PT INR ABG pH ABG pO2 66.9 L ABG HCO3 44.5 H ABG O2 Saturation ABG Base Excess 17.2 H ABG Hemoglobin 8.1 L Oxyhemoglobin 94.8 L Sodium Potassium Chloride 93.8 L Carbon Dioxide 42 H* BUN Creatinine < 0.2 L Glucose 117 H POC Glucose Calcium Phosphorus Magnesium Total Creatine Kinase CK-MB (CK-2) Rel Index Troponin T C-Reactive Protein Total Protein Albumin LDL Cholesterol Direct Urine WBC (Auto) 04/15/22 04/15/22 04/16/22 04:44 04:44 04:16 WBC 13.0 H 12.6 H RBC 3.19 L 3.09 L Hgb 9.6 L 9.5 L Hct 30.2 L 29.1 L MCV 95 H Plt Count 456 H Lymph % (Auto) Mcpherson % (Auto) Lymph # (Auto) Mcpherson # (Auto) Seg Neutrophils % Seg Neuts % (Manual) Lymphocytes % (Manual) Seg Neutrophils # Seg Neutrophils # Man Lymphocytes # (Manual) PT INR ABG pH ABG pO2 ABG HCO3 ABG O2 Saturation ABG Base Excess ABG Hemoglobin Oxyhemoglobin Sodium Potassium Chloride 95.5 L Carbon Dioxide 37 H BUN Creatinine < 0.2 L Glucose POC Glucose Calcium Phosphorus Magnesium Total Creatine Kinase CK-MB (CK-2) Rel Index Troponin T C-Reactive Protein Total Protein Albumin LDL Cholesterol Direct Urine WBC (Auto) 04/16/22 04/16/22 04/16/22 04:16 05:00 14:00 WBC RBC Hgb Hct MCV Plt Count Lymph % (Auto) Mcpherson % (Auto) Lymph # (Auto) Mcpherson # (Auto) Seg Neutrophils % Seg Neuts % (Manual) Lymphocytes % (Manual) Seg Neutrophils # Seg Neutrophils # Man Lymphocytes # (Manual) PT INR ABG pH 7.324 L ABG pO2 55.6 L ABG HCO3 45.3 H ABG O2 Saturation 87.1 L ABG Base Excess 16.6 H ABG Hemoglobin 8.6 L Oxyhemoglobin 85.7 L Sodium Potassium Chloride 97.6 L Carbon Dioxide 36 H BUN Creatinine < 0.2 L Glucose 109 H POC Glucose 120 H Calcium Phosphorus Magnesium Total Creatine Kinase CK-MB (CK-2) Rel Index Troponin T C-Reactive Protein Total Protein Albumin LDL Cholesterol Direct Urine WBC (Auto) 04/17/22 04/17/22 04/17/22 04:36 04:36 04:57 WBC 14.4 H RBC 3.08 L Hgb 9.4 L Hct 29.0 L MCV Plt Count Lymph % (Auto) Mcpherson % (Auto) Lymph # (Auto) Mcpherson # (Auto) Seg Neutrophils % Seg Neuts % (Manual) Lymphocytes % (Manual) Seg Neutrophils # Seg Neutrophils # Man Lymphocytes # (Manual) PT INR ABG pH ABG pO2 ABG HCO3 ABG O2 Saturation ABG Base Excess ABG Hemoglobin Oxyhemoglobin Sodium Potassium Chloride 95.9 L Carbon Dioxide 39 H BUN Creatinine < 0.2 L Glucose 140 H POC Glucose 137 H Calcium 8.3 L Phosphorus Magnesium Total Creatine Kinase CK-MB (CK-2) Rel Index Troponin T C-Reactive Protein Total Protein Albumin LDL Cholesterol Direct Urine WBC (Auto) 04/17/22 04/17/22 04/18/22 09:15 18:01 04:20 WBC 11.2 H RBC 3.00 L Hgb 9.3 L Hct 28.6 L MCV 95 H Plt Count Lymph % (Auto) Mcpherson % (Auto) Lymph # (Auto) Mcpherson # (Auto) Seg Neutrophils % Seg Neuts % (Manual) Lymphocytes % (Manual) Seg Neutrophils # Seg Neutrophils # Man Lymphocytes # (Manual) PT INR ABG pH 7.345 L ABG pO2 ABG HCO3 48.2 H ABG O2 Saturation ABG Base Excess 19.2 H ABG Hemoglobin 9.7 L Oxyhemoglobin Sodium Potassium Chloride Carbon Dioxide BUN Creatinine Glucose POC Glucose 129 H Calcium Phosphorus Magnesium Total Creatine Kinase CK-MB (CK-2) Rel Index Troponin T C-Reactive Protein Total Protein Albumin LDL Cholesterol Direct Urine WBC (Auto) 04/18/22 04/18/22 04/18/22 04:20 17:35 23:50 WBC RBC Hgb Hct MCV Plt Count Lymph % (Auto) Mcpherson % (Auto) Lymph # (Auto) Mcpherson # (Auto) Seg Neutrophils % Seg Neuts % (Manual) Lymphocytes % (Manual) Seg Neutrophils # Seg Neutrophils # Man Lymphocytes # (Manual) PT INR ABG pH ABG pO2 ABG HCO3 ABG O2 Saturation ABG Base Excess ABG Hemoglobin Oxyhemoglobin Sodium Potassium Chloride 96.8 L Carbon Dioxide 43 H* BUN 22 H Creatinine < 0.2 L Glucose 137 H POC Glucose 128 H 123 H Calcium 8.2 L Phosphorus Magnesium Total Creatine Kinase CK-MB (CK-2) Rel Index Troponin T C-Reactive Protein Total Protein Albumin LDL Cholesterol Direct Urine WBC (Auto) 04/19/22 04/19/22 04/19/22 04:08 04:08 08:50 WBC 16.8 H RBC 3.18 L Hgb 9.8 L Hct 30.1 L MCV 95 H Plt Count Lymph % (Auto) Mcpherson % (Auto) Lymph # (Auto) Mcpherson # (Auto) Seg Neutrophils % Seg Neuts % (Manual) Lymphocytes % (Manual) Seg Neutrophils # Seg Neutrophils # Man Lymphocytes # (Manual) PT INR ABG pH ABG pO2 56.0 L ABG HCO3 47.1 H ABG O2 Saturation 93.3 L ABG Base Excess 20.1 H ABG Hemoglobin 8.0 L Oxyhemoglobin 91.8 L Sodium Potassium Chloride 96.2 L Carbon Dioxide 40 H BUN 24 H Creatinine < 0.2 L Glucose 125 H POC Glucose Calcium 8.3 L Phosphorus Magnesium Total Creatine Kinase CK-MB (CK-2) Rel Index Troponin T C-Reactive Protein Total Protein Albumin LDL Cholesterol Direct Urine WBC (Auto) 04/19/22 04/20/22 04/20/22 12:02 00:40 04:49 WBC 14.7 H RBC 3.36 L Hgb 10.3 L Hct 32.0 L MCV 95 H Plt Count Lymph % (Auto) Mcpherson % (Auto) Lymph # (Auto) Mcpherson # (Auto) Seg Neutrophils % Seg Neuts % (Manual) Lymphocytes % (Manual) Seg Neutrophils # Seg Neutrophils # Man Lymphocytes # (Manual) PT INR ABG pH ABG pO2 ABG HCO3 ABG O2 Saturation ABG Base Excess ABG Hemoglobin Oxyhemoglobin Sodium Potassium Chloride Carbon Dioxide BUN Creatinine Glucose POC Glucose 124 H 140 H Calcium Phosphorus Magnesium Total Creatine Kinase CK-MB (CK-2) Rel Index Troponin T C-Reactive Protein Total Protein Albumin LDL Cholesterol Direct Urine WBC (Auto) 04/20/22 04/20/22 04/21/22 05:36 11:40 04:05 WBC RBC Hgb Hct MCV Plt Count Lymph % (Auto) Mcpherson % (Auto) Lymph # (Auto) Mcpherson # (Auto) Seg Neutrophils % Seg Neuts % (Manual) Lymphocytes % (Manual) Seg Neutrophils # Seg Neutrophils # Man Lymphocytes # (Manual) PT INR ABG pH ABG pO2 ABG HCO3 ABG O2 Saturation ABG Base Excess ABG Hemoglobin Oxyhemoglobin Sodium Potassium Chloride 93.4 L Carbon Dioxide 40 H BUN 25 H Creatinine < 0.2 L Glucose 122 H POC Glucose 125 H 128 H Calcium Phosphorus Magnesium Total Creatine Kinase CK-MB (CK-2) Rel Index Troponin T C-Reactive Protein Total Protein Albumin LDL Cholesterol Direct Urine WBC (Auto) 04/21/22 04/22/22 04/22/22 10:31 05:03 05:03 WBC 12.6 H 12.7 H RBC 2.83 L 2.96 L Hgb 8.6 L 9.0 L Hct 26.9 L 28.0 L MCV 95 H 95 H Plt Count Lymph % (Auto) Mcpherson % (Auto) Lymph # (Auto) Mcpherson # (Auto) Seg Neutrophils % Seg Neuts % (Manual) Lymphocytes % (Manual) Seg Neutrophils # Seg Neutrophils # Man Lymphocytes # (Manual) PT INR ABG pH ABG pO2 ABG HCO3 ABG O2 Saturation ABG Base Excess ABG Hemoglobin Oxyhemoglobin Sodium Potassium Chloride 93.9 L Carbon Dioxide 43 H* BUN 23 H Creatinine < 0.2 L Glucose 137 H POC Glucose Calcium Phosphorus Magnesium Total Creatine Kinase CK-MB (CK-2) Rel Index Troponin T C-Reactive Protein Total Protein Albumin LDL Cholesterol Direct Urine WBC (Auto) 04/22/22 04/23/22 04/24/22 08:34 09:40 04:29 WBC 14.4 H RBC 2.74 L Hgb 8.4 L Hct 25.7 L MCV Plt Count Lymph % (Auto) Mcpherson % (Auto) Lymph # (Auto) Mcpherson # (Auto) Seg Neutrophils % Seg Neuts % (Manual) Lymphocytes % (Manual) Seg Neutrophils # Seg Neutrophils # Man Lymphocytes # (Manual) PT INR ABG pH ABG pO2 54.1 L 56.8 L ABG HCO3 48.5 H 49.0 H ABG O2 Saturation 92.1 L 90.9 L ABG Base Excess 20.9 H 20.8 H ABG Hemoglobin 9.0 L 8.4 L Oxyhemoglobin 90.6 L 89.5 L Sodium Potassium Chloride Carbon Dioxide BUN Creatinine Glucose POC Glucose Calcium Phosphorus Magnesium Total Creatine Kinase CK-MB (CK-2) Rel Index Troponin T C-Reactive Protein Total Protein Albumin LDL Cholesterol Direct Urine WBC (Auto) 04/24/22 04/25/22 04/26/22 04:29 09:00 04:22 WBC RBC 2.88 L Hgb 8.9 L Hct 26.8 L MCV Plt Count Lymph % (Auto) Mcpherson % (Auto) Lymph # (Auto) Mcpherson # (Auto) Seg Neutrophils % Seg Neuts % (Manual) Lymphocytes % (Manual) Seg Neutrophils # Seg Neutrophils # Man Lymphocytes # (Manual) PT INR ABG pH 7.457 H ABG pO2 66.7 L ABG HCO3 42.6 H ABG O2 Saturation ABG Base Excess 15.3 H ABG Hemoglobin 8.8 L Oxyhemoglobin 94.1 L Sodium Potassium Chloride 90.7 L Carbon Dioxide 40 H BUN Creatinine < 0.2 L Glucose 133 H POC Glucose Calcium Phosphorus Magnesium Total Creatine Kinase CK-MB (CK-2) Rel Index Troponin T C-Reactive Protein Total Protein Albumin LDL Cholesterol Direct Urine WBC (Auto) 04/26/22 04/29/22 04/29/22 04:22 04:18 04:18 WBC 13.5 H RBC 2.96 L Hgb 8.9 L Hct 27.7 L MCV Plt Count Lymph % (Auto) Mcpherson % (Auto) Lymph # (Auto) Mcpherson # (Auto) Seg Neutrophils % Seg Neuts % (Manual) Lymphocytes % (Manual) Seg Neutrophils # Seg Neutrophils # Man Lymphocytes # (Manual) PT INR ABG pH ABG pO2 ABG HCO3 ABG O2 Saturation ABG Base Excess ABG Hemoglobin Oxyhemoglobin Sodium Potassium Chloride 93.2 L 95.2 L Carbon Dioxide 37 H 38 H BUN Creatinine < 0.2 L < 0.2 L Glucose 114 H 116 H POC Glucose Calcium Phosphorus Magnesium Total Creatine Kinase CK-MB (CK-2) Rel Index Troponin T C-Reactive Protein Total Protein Albumin LDL Cholesterol Direct Urine WBC (Auto) Allied health notes reviewed: RT
--- NOTE | 2022-04-30 10:56 | Progress Note ---
<ALEK SMITH - Last Filed: 04/30/22 18:16> Assessment and Plan Assessment and plan: This is a 57-year-old male with known history of ALS, recently hospitalized at [facility] admitted for acute hypoxemic respiratory failure 2/2 pneumonia Hospital Course to Date: 04/03: Intubated and Sedated on versed gtt, RASS-5. CT head/brain noted with no acute intracranial abnormality. Plan to initiated precededx gtt and wean off versed for a RASS goal of 0 to -2. CT chect also reviewed, findings are most consistent with acute bronchopneumonia. Continue empiric IV Abx, vent adjustment per CCM. ID consulted. Continue to F/U on cultures. Titrate pressor for MAP above 65. Medical records requested from [facility]. 04/04: Remains stable on the vent, easily arousable on precedex gtt, not following commands. Plan for SAT/SBT today. PRN analgesia for CPOT greater than 3. Fevers improved, cultures and procal pending. Continue current IV abx, ID also consulted. Remains on low dose pressors, titrate pressors for a MAP above 65. 04/05: Long discussion with family with use of translation phone with CCM regarding goals of care. Family to have meeting amongst themselves and informed care team of decisions. Fentanyl drip added for respiratory distress. Remains on Precedex drip. Antibiotics per ID. Given 2L NS bolus with levophed gtt 04/06: Family discussion with Dr. Grayson for goals of care. CXR shows possible mucus plug, continue CPT as FiO2 is being able to be weaned. Potassium repleted. Weaning fentnyl gtt. 04/07: Ultrasound guided thoracentesis today scheduled, inadequate amount of pleural effusion on so not completed. Patient was started on Levophed overnight which was weaned off this morning however had to be started twice a day. Remains on fentanyl and Precedex. Cardiology discontinued BB and ACEi in setting of hypotension. 04/08: COVID-19 PCR negative. Routine EEG ordered by cardiology which showed ST changes, cardiology aware. They will continue conservative treatment. Repeat troponins 0.030 which are less than admit of 0.048. Dr. Grayson had a long discu ssion with with the use of deckhand crab boat today at bedside and has not made a decision regarding goals of care. Possible consult to surgery for trach/PEG early next week. Continues to require Precedex and fentanyl drip for sedation. Carvedilol/lisinopril discontinued as patient is continuously on Levophed. 04/09: No acute events reported overnight, remains on fentanyl, Precedex and Levophed drips. Dr. Grayson and Dr. Pineda updated family at bedside extensively today. Consulted surgery for trach/PEG. COVID-19 PCR negative. 04/10: Patient noted to have desaturation episodes, FiO2 increased slightly to 35%. Will add Mucomyst. Remains on fentanyl and Precedex. Off of Levophed. Surgery consulted for trach/PEG. 04/11: FiO2 increased over night likely related to hypoxia, continues on fent gtt, weaning precedex gtt as he is also on Seroquel. Will d/w CCM re scheduled or prn oxycodone 04/12: Periods of hypoxia and tachycardia this am. Symptoms improved post deep suction and tracheal lavage, Repeat CXR noted with no significant change. Continue CPT and mucomyst. Plan for possible trach/PEG tomorrow by general surgery. 04/13: Remains stable on the vent. Patient is wake and tracking but does not follow simple commands. No report of hypoxia from overnight, continue CPT and mucomyst. Plan for track and PEG today by General Surgery. Plan for LTAC placement post procedure, case management to arrange. 04/14: VIRGILIO overnight, Trach and PEG postponed for today by general surgery. Plan for LTAC placement post procedure, case management to arrange. 04/15: S/p Trach and PEG. Up to 80% FiO2 this am, this am CXR noted suggesting possible mucus plug. D/W [facility] plan for bronch today. Continue CPT and mucomyst. Plan of care thoroughly discussed with patient's and son (who translated for ) at the bedside. Per , child care provider had already discussed the risks and benefits of the procedure yesterday. She verbalized understanding and agreed with procedure and current care plan, consent signed. Okay to use PEG-tube for meds this am, resume TF once okay by general Surgery. Case management to arrange LTAC placement. 04/16: s/p Bronchocopy by [facility]. FiO2 down to 60%, angela 10 this am. This am CXR with moderate improvement. Continue CPT and mucomyst, wean Fio2 as tolerated for SPO2 above 92%. Patient is tolerating TF, advance to goal as ordered. Possible LTAC placement, case management to arrange. 04/17: VIRGILIO overnight. remains stable on the vent, recent CXR and this am ABG n oted. Continue CPT and mucomyst, wean Fio2 as tolerated. 04/18: Remains stable on the vent, Fio2 down to 55% and peep of 8 this am. Continue to wean as tolerated, CPT, and mucomyst. Dsiposition- LTAC placement, case management to arrange. 04/19: No acute events overnight. Continue current management. 04/20: No acute events overnight, continue current management 04/21: Patient had chest ultrasound which showed trace pleural effusions, chest x-ray improved after the addition of Mucomyst yesterday. FiO2 55-65%. No acute events overnight. more interactive today. 04/22: Seroquel changed to BID, FiO2 was increased to 60%. RT increased FIO2 to 100 d/t desaturation into the 80s but was able to wean down. CCM increased PEEP and decreased FiO2. 04/23: CCM increase PEEP, no acute events reported overnight. 04/24: Spoke to RT about decreasing FiO2 as tolerated. No acute events reported overnight. Continue supportive management. 04/25: Weaning as tolerated. no acute events overnight. RT to attempt CPAP again today 04/26: VIRGILIO overnight. Patient failed PSV trial again this morning. Continue s upportive management and daily PST trial. 04/27: Patient failed PSV trial again this am due to episodes of apnea. Continue daily PSV trial as tolerated. Case management to arrange LTAC placement 04/28: Remains stable. Continue daily PSV trial as tolerated. Awaiting approval for LTAC 04/29: VIRGILIO overnight. Continue daily PSV trial. Awaiting approval for LTAC, case management to arrange. 04/30: Patient continue to fail PSV trial. Per case management patient was denied for LTAC, now possible SNF placement. Case managemen to arrange. Continue supportive measures and daily PSV trial as tolerated. Assessment and Plan #Acute Hypoxemic Respiratory Failure 12/09 #Acute Bronchopneumonia - Intubated in the ED on 04/02 for hypoxemia and airway protection - 04/14 s/p Trach and PEG - 04/15 CXR reviewed complete opacity of the righ side suggesting possible mucus plug. See report for detail - 04/15 s/p Bronchoscopy by [facility] - Vent setting: PRVC-40%,10,14,400 - No ABG this am - CCM consulted, appreciate recommendations - Patient failed PST trial again today due to episodes of apnea - Continue daily PSVT as tolerated - Continue CPT and mucomyst per [facility] - VAP bundle addressed - Aspiration precaution HOB above 30 - PRN ABG and CXR per [facility] - Continue SPO2 monitoring for SPO2 goal above 92% #Sepsis #Acute Bronchopneumonia #HCAP #Leukocytosis - CXR shows moderate to large layering effusion on the right, see report for full detail - CT chest also reviewed, findings are most consistent with acute bronchopneumonia. See report for full detail - Patient was recent hospitalized for pneumonia - Patient remains afebrile - Tracheal aspirate with Pseudomonas aeruginosa, Enterobacter aerogenes - 04/02 blood culture with bacillus species, 04/05 blood culture NGTD - Patient completed [id number] of Cefepine - CRP 31.6, procalcitonin 0.08 - MRSA negative - Daily CBC monitor - ID signed off #Suspect ischemic coronary artery disease #h/o cardiomyopathy - Low BP probably due to hypovolemia vs sedation vs infectious process - s/p Levophed gtt - Elevated troponin possibly a type II troponin leak - Cardiology consulted, appreciated recommendations - Echocardiogram shows ejection fraction of 40 to 45%, mild global hypokinesis of left ventricle - Continue BB - Continue blood pressure monitor per protocol - Maintain MAP above 65 - On heparin SubQ #H/o Amyotrophic Lateral Sclerosis #Acute Metabolic Encephalopathy-resolved #Nonverbal at Baseline - Presented with AMS, per family patient is nonverbal at baseline but responsive - CT head/Brain with no acute intracranial process - Off sedation. Awake and calm - Continue Seroquel per [facility] - Avoid benzodiazepine to reduce the possibility of delirium - PRN analgesia for CPOT greater than 3 - Maintenance of sleep-wake cycle #Thrombocytopenia-resolved - Continue to trend plt - On heparin subQ - Monitor for s/s of any active bleeding #Hypernatremia-resolved - Monitor and replace electrolytes as needed - Continue to trend BMP #Protein Caloric Malnutrition - Albumin 2.7, Total protein 4.6 - 04/15 s/p EPG-Tube placement - Continue enteral nutrition - Nutrition consulted #Constipation - Noted on CXR and KUB - last BM 04/27 - Continue BR #GI/DVT Prophylaxis - PPI- Pepcid - Heparin SubQ - SCDs to bilateral lower extremities while in bed #Advance Care Planning - Disease education data, care plan, diagnoses, and prognosis were discussed patient's , Carly Lopez, and patient daughter, Kaylee Warren, who translated for #[phone]. They reported that patient was following at [facility] for his ALS and during recent hospitalization at [facility] they were told nothing else can be offered to patient at this time and patient was discharge home with home hospice and PO morphine. First hospice visit was on , however, patient became unresponsive yesterday and they brought in to the hospital. - Goal of care and code status were also addressed at that time. Family wants to wait for a couple days to see how patient respond to current treatment before making a decision. All questions and concerns were addressed at this time. Patient family acknowledged understanding and agreement with care plan. - Patient remains a FULL CODE status -04/05: Discussion at bedside with interpreting service with Dr. Valdivia and family state they would discuss next steps amongst themselves and let healthcare team know of decisions -04/06: extensive discussion with family ( and son) with Dr. Grayson regarding goals of care -04/08: Extensive discussion with with the use of deckhand crab boat line regarding goals of care; no decision made. Possible consult to surgery for trach/PEG early next week. -04/09: Discussion with and her sister with Dr. Grayson and then with Dr. Pineda-> Consulted surgery for trach/peg -04/30 Insurance Denied LTAC, plan for possible SNF placemenet now. Case management to arrange The high probability of a clinically significant, sudden or life threatening deterioration of the [multiple] system(s) required my full and direct attention, intervention and personal management. The aggregate critical care time was [60] minutes. This time is in addition to time spent performing reported procedures but includes the following: [x] Data Review and interpretation [x] Patient assessment and monitoring of vital signs [x] Documentation [x] Medication orders and management Disposition Plan: ICU Total Time Spent with Patient (Minutes): 60 History Interval history: Patient seen and examined at the bedside. Stable on the vent, awake and tracking, following simple commands, VSS. Patient continue to fail PSV trial. Otherwise VIRGILIO overnight Hospitalist Physical - Physical exam Narrative exam: General appearance: Present: no acute distress, cachectic, other (Trach and on the vent.Awake and tracking, following simple commands) - EENT Eyes: Present: PERRL - Neck Neck: Present: normal ROM - Respiratory Respiratory effort: normal Respiratory: bilateral: rhonchi - Cardiovascular Rhythm: regular Heart Sounds: Present: S1 & S2 - Extremities Extremities: no ischemia, pulses intact, pulses symmetrical Peripheral Pulses: within normal limits - Abdominal General gastrointestinal: soft, non-distended, normal bowel sounds - Integumentary Integumentary: Present: warm, dry - Psychiatric Psychiatric: other (Trach and on the vent. Awake and tracking, following simple commands) - Neurologic Neurologic: other (Trach and on the vent. Awake and tracking, following simple commands) - Allied Health Allied health notes reviewed: nursing, case management - Constitutional Vitals: Temp Pulse Resp BP Pulse Ox 98.3 F 103 H 14 92/54 100 04/30/22 07:52 04/30/22 10:00 04/30/22 10:00 04/30/22 10:00 04/30/22 10:00 HEART Score - HEART Score Troponin: Troponin T 0.031 ng/mL (0.00-0.029) H 04/08/22 17:47 Results - Labs CBC & Chem 7: 04/29/22 04:18 04/29/22 04:18 Labs: Laboratory Last Values WBC 13.5 K/mm3 (4.5-11.0) H 04/29/22 04:18 RBC 2.96 M/mm3 (3.65-5.03) L 04/29/22 04:18 Hgb 8.9 gm/dl (11.8-15.2) L 04/29/22 04:18 Hct 27.7 % (35.5-45.6) L 04/29/22 04:18 MCV 94 fl (84-94) 04/29/22 04:18 MCH 30 pg (28-32) 04/29/22 04:18 MCHC 32 % (32-34) 04/29/22 04:18 RDW 14.0 % (13.2-15.2) 04/29/22 04:18 Plt Count 348 K/mm3 (140-440) 04/29/22 04:18 Lymph % (Auto) 4.3 % (13.4-35.0) L 04/07/22 03:51 [place] % (Auto) 8.8 % (0.0-7.3) H 04/07/22 03:51 Eos % (Auto) 0.1 % (0.0-4.3) 04/07/22 03:51 Baso % (Auto) 0.2 % (0.0-1.8) 04/07/22 03:51 Lymph # (Auto) 0.6 K/mm3 (1.2-5.4) L 04/07/22 03:51 [place] # (Auto) 1.3 K/mm3 (0.0-0.8) H 04/07/22 03:51 Eos # (Auto) 0.0 K/mm3 (0.0-0.4) 04/07/22 03:51 Baso # (Auto) 0.0 K/mm3 (0.0-0.1) 04/07/22 03:51 Add Manual Diff Complete 04/02/22 19:39 Total Counted 100 04/02/22 19:39 Seg Neutrophils % 86.6 % (40.0-70.0) H 04/07/22 03:51 Seg Neuts % (Manual) 94.0 % (40.0-70.0) H 04/02/22 19:39 Band Neutrophils % 0 % 04/02/22 19:39 Lymphocytes % (Manual) 1.0 % (13.4-35.0) L 04/02/22 19:39 Reactive Lymphs % (Man) 0 % 04/02/22 19:39 Monocytes % (Manual) 5.0 % (0.0-7.3) 04/02/22 19:39 Eosinophils % (Manual) 0 % (0.0-4.3) 04/02/22 19:39 Basophils % (Manual) 0 % (0.0-1.8) 04/02/22 19:39 Metamyelocytes % 0 % 04/02/22 19:39 Myelocytes % 0 % 04/02/22 19:39 Promyelocytes % 0 % 04/02/22 19:39 Blast Cells % 0 % 04/02/22 19:39 Nucleated RBC % Not Reportable 04/02/22 19:39 Seg Neutrophils # 12.7 K/mm3 (1.8-7.7) H 04/07/22 03:51 Seg Neutrophils # Man 13.4 K/mm3 (1.8-7.7) H 04/02/22 19:39 Band Neutrophils # 0.0 K/mm3 04/02/22 19:39 Lymphocytes # (Manual) 0.1 K/mm3 (1.2-5.4) L 04/02/22 19:39 Abs React Lymphs (Man) 0.0 K/mm3 04/02/22 19:39 Monocytes # (Manual) 0.7 K/mm3 (0.0-0.8) 04/02/22 19:39 Eosinophils # (Manual) 0.0 K/mm3 (0.0-0.4) 04/02/22 19:39 Basophils # (Manual) 0.0 K/mm3 (0.0-0.1) 04/02/22 19:39 Metamyelocytes # 0.0 K/mm3 04/02/22 19:39 Myelocytes # 0.0 K/mm3 04/02/22 19:39 Promyelocytes # 0.0 K/mm3 04/02/22 19:39 Blast Cells # 0.0 K/mm3 04/02/22 19:39 WBC Morphology Not Reportable 04/02/22 19:39 Hypersegmented Neuts Not Reportable 04/02/22 19:39 Hyposegmented Neuts Not Reportable 04/02/22 19:39 Hypogranular Neuts Not Reportable 04/02/22 19:39 Smudge Cells Not Reportable 04/02/22 19:39 Toxic Granulation Not Reportable 04/02/22 19:39 Toxic Vacuolation Not Reportable 04/02/22 19:39 Dohle Bodies Not Reportable 04/02/22 19:39 Pelger-Huet Anomaly Not Reportable 04/02/22 19:39 Terry Rods Not Reportable 04/02/22 19:39 Platelet Estimate Consistent w auto 04/02/22 19:39 Clumped Platelets Not Reportable 04/02/22 19:39 Plt Clumps, EDTA Not Reportable 04/02/22 19:39 Large Platelets Not Reportable 04/02/22 19:39 Giant Platelets Not Reportable 04/02/22 19:39 Platelet Satelliting Not Reportable 04/02/22 19:39 Plt Morphology Comment Not Reportable 04/02/22 19:39 RBC Morphology Not Reportable 04/02/22 19:39 Dimorphic RBCs Not Reportable 04/02/22 19:39 Polychromasia Not Reportable 04/02/22 19:39 Hypochromasia Not Reportable 04/02/22 19:39 Poikilocytosis Not Reportable 04/02/22 19:39 Anisocytosis 1+ 04/02/22 19:39 Microcytosis Not Reportable 04/02/22 19:39 Macrocytosis Not Reportable 04/02/22 19:39 Spherocytes Not Reportable 04/02/22 19:39 Pappenheimer Bodies Not Reportable 04/02/22 19:39 Sickle Cells Not Reportable 04/02/22 19:39 Target Cells Not Reportable 04/02/22 19:39 Tear Drop Cells Not Reportable 04/02/22 19:39 Ovalocytes Not Reportable 04/02/22 19:39 Helmet Cells Not Reportable 04/02/22 19:39 [place] Bodies Not Reportable 04/02/22 19:39 Cogswell Rings Not Reportable 04/02/22 19:39 [place] Cells Not Reportable 04/02/22 19:39 Bite Cells Not Reportable 04/02/22 19:39 Crenated Cell Not Reportable 04/02/22 19:39 Elliptocytes Not Reportable 04/02/22 19:39 Acanthocytes (Spur) Not Reportable 04/02/22 19:39 Rouleaux Not Reportable 04/02/22 19:39 Hemoglobin C Crystals Not Reportable 04/02/22 19:39 Schistocytes Not Reportable 04/02/22 19:39 Malaria parasites Not Reportable 04/02/22 19:39 [place] Bodies Not Reportable 04/02/22 19:39 Hem Pathologist Commnt No 04/02/22 19:39 PT 13.6 Sec. (12.2-14.9) 04/13/22 04:30 INR 0.94 (0.87-1.13) 04/13/22 04:30 APTT 35.7 Sec. (24.2-36.6) 04/07/22 03:51 ABG pH 7.457 pH Units (7.350-7.450) H 04/25/22 09:00 ABG pCO2 61.7 mm Hg 04/25/22 09:00 ABG pO2 66.7 mm Hg (80.0-90.0) L 04/25/22 09:00 ABG HCO3 42.6 mmol/L (20.0-26.0) H 04/25/22 09:00 ABG O2 Saturation 95.7 % (95.0-99.0) 04/25/22 09:00 ABG O2 Content 20.0 (0.0-44) 04/25/22 09:00 ABG Base Excess 15.3 mmol/L (-2.0-3.0) H 04/25/22 09:00 ABG Hemoglobin 8.8 gm/dl (14.0-18.0) L 04/25/22 09:00 ABG Carboxyhemoglobin 1.3 % (0.0-5.0) 04/25/22 09:00 ABG Methemoglobin 0.4 % (0.0-1.5) 04/25/22 09:00 Oxyhemoglobin 94.1 % (95.0-99.0) L 04/25/22 09:00 FiO2 35 % 04/25/22 09:00 Sodium 138 mmol/L (137-145) 04/29/22 04:18 Potassium 4.3 mmol/L (3.6-5.0) 04/29/22 04:18 Chloride 95.2 mmol/L (98-107) L 04/29/22 04:18 Carbon Dioxide 38 mmol/L (22-30) H 04/29/22 04:18 Anion Gap 9 mmol/L 04/29/22 04:18 BUN 19 mg/dL (9-20) 04/29/22 04:18 Creatinine < 0.2 mg/dL (0.8-1.3) L 04/29/22 04:18 Estimated GFR > 60 ml/min 04/29/22 04:18 BUN/Creatinine Ratio 95 % 04/29/22 04:18 Glucose 116 mg/dL (75-100) H 04/29/22 04:18 POC Glucose 128 mg/dL (70-105) H 04/20/22 11:40 Lactic Acid 1.90 mmol/L (0.7-2.0) 04/02/22 19:39 Calcium 8.7 mg/dL (8.4-10.2) 04/29/22 04:18 Phosphorus 3.80 mg/dL (2.5-4.5) 04/29/22 04:18 Magnesium 1.80 mg/dL (1.7-2.3) 04/29/22 04:18 Total Bilirubin 0.80 mg/dL (0.1-1.2) 04/02/22 19:39 AST 15 units/L (5-40) 04/02/22 19:39 ALT 9 units/L (7-56) 04/02/22 19:39 Alkaline Phosphatase 43 units/L (35-129) 04/02/22 19:39 Total Creatine Kinase 46 units/L (55-170) L 04/08/22 17:47 CK-MB (CK-2) 2.6 ng/mL (0.0-4.0) 04/08/22 17:47 CK-MB (CK-2) Rel Index 5.6 (0-4) H 04/08/22 17:47 Troponin T 0.031 ng/mL (0.00-0.029) H 04/08/22 17:47 C-Reactive Protein 31.60 mg/dL (0.00-1.30) H 04/04/22 04:18 Total Protein 4.6 g/dL (6.3-8.2) L 04/02/22 19:39 Albumin 2.7 g/dL (3.9-5) L 04/02/22 19:39 Albumin/Globulin Ratio 1.4 % 04/02/22 19:39 Triglycerides 80 mg/dL (2-149) 04/02/22 19:39 Cholesterol 94 mg/dL (50-199) 04/02/22 19:39 LDL Cholesterol Direct 27 mg/dL (50-130) L 04/02/22 19:39 HDL Cholesterol 47 mg/dL (40-59) 04/02/22 19:39 Cholesterol/HDL Ratio 2.00 % 04/02/22 19:39 Procalcitonin 0.08 ng/mL (<0.15) 04/04/22 04:18 Urine Color Arac[place] (Yellow) 04/05/22 17:45 Urine Turbidity Cloudy (Clear) 04/05/22 17:45 Urine pH 5.0 (5.0-7.0) 04/05/22 17:45 Ur Specific [place] 1.021 (1.003-1.030) 04/05/22 17:45 Urine Protein 30 mg/dl mg/dL (Negative) 04/05/22 17:45 Urine Glucose (UA) Neg mg/dL (Negative) 04/05/22 17:45 Urine Ketones Tr mg/dL (Negative) 04/05/22 17:45 Urine Blood Sm (Negative) 04/05/22 17:45 Urine Nitrite Neg (Negative) 04/05/22 17:45 Urine Bilirubin Neg (Negative) 04/05/22 17:45 Urine Urobilinogen < 2.0 mg/dL (<2.0) 04/05/22 17:45 Ur Leukocyte Esterase Tr (Negative) 04/05/22 17:45 Urine WBC (Auto) 8.0 /HPF (0.0-6.0) H 04/05/22 17:45 Urine RBC (Auto) 3.0 /HPF (0.0-6.0) 04/05/22 17:45 U Epithel Cells (Auto) 2.0 /HPF (0-13.0) 04/05/22 17:45 Urine Bacteria (Auto) 1+ /HPF (Negative) 04/02/22 Unknown Hyaline Casts 1 /LPF 04/05/22 17:45 Urine Mucus 3+ /HPF 04/05/22 17:45 Nasal Screen MRSA (PCR) Negative (Negative) 04/05/22 12:37 Vancomycin Trough 6.0 ug/mL (5.0-20.0) 04/05/22 18:53 Coronavirus (PCR) Negative (Negative) 04/07/22 14:52 Perez/IV: Voiding Method Condom Catheter Active Medications - Current Medications Current Medications: Generic Name Dose Route Start Last Admin Trade Name Freq PRN Reason Stop Dose Admin Acetaminophen 650 mg 04/02/22 23:53 04/21/22 16:23 Acetaminophen 325 Mg Tab PO 650 mg Q6H PRN Administration Pain MILD(1-3)/Fever >100.5/FAITH Acetylcysteine 200 mg 04/21/22 16:00 04/30/22 08:57 Acetylcysteine 20% 200 Mg/1 Ml *For Inhalation Use* INHALATION 200 mg Q8HRT SEGUNDO Administration Albuterol 2.5 mg 04/06/22 16:00 04/30/22 08:57 Albuterol 2.5 Mg/3 Ml Nebu IH 2.5 mg Q8HRT SEGUNDO Administration Bisacodyl 10 mg 04/07/22 09:44 04/12/22 10:06 Bisacodyl 10 Mg Rect Supp MO 10 mg QDAY PRN Administration Constipation Dextrose 50 ml 04/06/22 17:54 Dextrose 50% In Water (25gm) 50 Ml Syringe IV Q30MIN PRN Hypoglycemia Protocol Docusate Sodium 100 mg 04/28/22 10:00 04/30/22 09:27 Docusate Sodium 100 Mg/10 Ml Oral Liqd FEEDTUBE Not Given BID SEGUNDO Famotidine 20 mg 04/06/22 10:00 04/30/22 09:26 Famotidine 20 Mg Tab FEEDTUBE 20 mg BID SEGUNDO Administration Fentanyl 50 mcg 04/04/22 15:56 04/29/22 21:40 Fentanyl 100 Mcg/2 Ml Inj IV 50 mcg Q2HR PRN Administration For CPOT of greater than 3 Heparin Sodium (Porcine) 5,000 unit 04/03/22 06:00 04/30/22 06:48 Heparin 5,000 Unit/1 Ml Vial SUB-Q 5,000 unit Q8HR SEGUNDO Administration Insulin Human Regular 0 units 04/06/22 18:00 04/30/22 07:47 Insulin Regular, Human 100 Units/1 Ml SUB-Q Not Given Q6H [facility] Protocol Magnesium Hydroxide 30 ml 04/02/22 23:53 Magnesium Hydroxide (Mom) Oral Liqd Udc PO Q4H PRN Constipation Metoprolol Tartrate 25 mg 04/16/22 18:00 04/30/22 06:48 Metoprolol Tartrate 25 Mg Tab FEEDTUBE 25 mg Q6HR SEGUNDO Administration Ondansetron HCl 4 mg 04/02/22 23:53 Ondansetron 4 Mg/2 Ml Inj IV Q8H PRN Nausea And Vomiting Polyethylene Glycol 17 gm 04/08/22 10:00 04/30/22 09:27 Polyethylene Glycol 3350 17 Gm Powder PO Not Given QDAY SEGUNDO Quetiapine Fumarate 50 mg 04/28/22 10:00 04/30/22 09:26 Quetiapine 25 Mg Tab FEEDTUBE 50 mg BID SEGUNDO Administration Senna 17.6 mg 04/28/22 10:00 04/30/22 09:27 Sennosides Oral Liqd 8.8 Mg/5 Ml Oral Liqd FEEDTUBE Not Given Q12HR SEGUNDO Sodium Chloride 10 ml 04/03/22 10:00 04/30/22 09:26 Sodium Chloride 0.9% 10 Ml Flush Syringe IV 10 ml BID SEGUNDO Administration Sodium Chloride 10 ml 04/02/22 23:53 Sodium Chloride 0.9% 10 Ml Flush Syringe IV PRN PRN LINE FLUSH Nutrition/Malnutrition Assess - Dietary Evaluation Nutrition/Malnutrition Findings: Nutrition Notes Start: 04/04/22 13:13 Freq: Status: Active Protocol: Document 04/27/22 11:53 COLLEEN (Rec: 04/27/22 12:21 COLLEEN [id number]) Nutrition Notes Initial or Follow up Reassessment Current Diagnosis Coronary Artery Disease, Decubitus(Pressure Ulcer), Sepsis,Respiratory Failure, Malnutrition Other Pertinent Diagnosis HCAP, HFpEF, ALS, Pleural Effusion, R-Lung Collapse, .. . Current Diet TF-Vital AF 1.2 Inderjit @ 50 ml/hr (since D 04/15). Labs/Tests 04/27: Cl 93.2, CO2 37, Crea < 0.2, Glu 114. Pertinent Medications 04/27: Nutritionally unremarkable. Height 5 ft 4.8 in Weight 46.8 kg [place] Body Weight (kg) 61.27 BMI 17.2 Weight change and time frame No body weight change reported in 3 weeks. Weight Status Underweight Subjective/Other Information RD consult for routine F/U on TF tolerance/continuation. TF continues as prescribed, and well tolerated, according to RN notes. Pt continues on Mechanical ventilation, O2 saturation @ 96%, according to Physical Assessment Histroy notes. Pt continues to present constipation, according to Physical Assessment Histroy notes. 3 failed attempts to wean Pt from Mechanical Ventilation, Pt is back to previous settings in [facility], according to RN notes. Pt is pending authorization for LTAC placement, according to Progress notes. Percent of energy/protein needs met: Prescribed TF-Vital AF 1.2 Inderjit @ 50 ml/hr provides for energy/protein needs (1,450 Kcal/91 g) during LOS, 98% Kcal; 100% AA. Burn Absent Trauma Absent GI Symptoms Constipation Difficulty In Swallowing,Chewing Food Allergy No Skin Integrity/Comment Sacral open wound. Current % PO Other Minimum of two criteria No #1 Nutrition Diagnosis Inadequate oral intake Diagnosis Progress(for reassessment Continues documentation) Is patient on ventilator? Yes Is Patient Ambulatory and/or Out of Bed No REE-([facility]-confined to bed) [phone] Calculation Used for Recommendations [facility] Additional Notes Protein: 1.2-2 g/Kg IBW; 73- 122 g/day. Fluids: 1 ml/Kcal, or as per MD. Nutrition Intervention Nutrition Support: Continue TF-Vital AF 1.2 Inderjit @ 50 ml/hr. Flush: 80 ml water Q 4 hr, or as per MD. Kcal 1,450 Protein (gm) 91 Carbohydrates (gm) 134 Fat (gm) 65 Fluid (mL) 980 Fiber (gm) 6 % RDI: 98% Kcal; 100% AA. Goal #1 Provide at least 75% of energy /protein needs through Enteral Feeding during LOS. Follow-Up By: 05/04/22 Additional Comments Continue monitoring TF tolerance and BM. <DIXIE BROWN E - Last Filed: 05/01/22 07:35> Assessment and Plan Assessment and plan: I saw and evaluated the patient. I agree with the findings and the plan of care as documented in the Nurse Practitioner's~note, with the following corrections and additions. Hospitalist Physical - Constitutional Vitals: Temp Pulse Resp BP Pulse Ox 98.5 F 108 H 18 112/69 95 05/01/22 04:00 05/01/22 06:32 05/01/22 04:00 05/01/22 06:32 05/01/22 04:36 HEART Score - HEART Score Troponin: Troponin T 0.031 ng/mL (0.00-0.029) H 04/08/22 17:47 Results - Labs CBC & Chem 7: 04/29/22 04:18 04/29/22 04:18 Labs: Laboratory Last Values WBC 13.5 K/mm3 (4.5-11.0) H 04/29/22 04:18 RBC 2.96 M/mm3 (3.65-5.03) L 04/29/22 04:18 Hgb 8.9 gm/dl (11.8-15.2) L 04/29/22 04:18 Hct 27.7 % (35.5-45.6) L 04/29/22 04:18 MCV 94 fl (84-94) 04/29/22 04:18 MCH 30 pg (28-32) 04/29/22 04:18 MCHC 32 % (32-34) 04/29/22 04:18 RDW 14.0 % (13.2-15.2) 04/29/22 04:18 Plt Count 348 K/mm3 (140-440) 04/29/22 04:18 Lymph % (Auto) 4.3 % (13.4-35.0) L 04/07/22 03:51 [place] % (Auto) 8.8 % (0.0-7.3) H 04/07/22 03:51 Eos % (Auto) 0.1 % (0.0-4.3) 04/07/22 03:51 Baso % (Auto) 0.2 % (0.0-1.8) 04/07/22 03:51 Lymph # (Auto) 0.6 K/mm3 (1.2-5.4) L 04/07/22 03:51 [place] # (Auto) 1.3 K/mm3 (0.0-0.8) H 04/07/22 03:51 Eos # (Auto) 0.0 K/mm3 (0.0-0.4) 04/07/22 03:51 Baso # (Auto) 0.0 K/mm3 (0.0-0.1) 04/07/22 03:51 Add Manual Diff Complete 04/02/22 19:39 Total Counted 100 04/02/22 19:39 Seg Neutrophils % 86.6 % (40.0-70.0) H 04/07/22 03:51 Seg Neuts % (Manual) 94.0 % (40.0-70.0) H 04/02/22 19:39 Band Neutrophils % 0 % 04/02/22 19:39 Lymphocytes % (Manual) 1.0 % (13.4-35.0) L 04/02/22 19:39 Reactive Lymphs % (Man) 0 % 04/02/22 19:39 Monocytes % (Manual) 5.0 % (0.0-7.3) 04/02/22 19:39 Eosinophils % (Manual) 0 % (0.0-4.3) 04/02/22 19:39 Basophils % (Manual) 0 % (0.0-1.8) 04/02/22 19:39 Metamyelocytes % 0 % 04/02/22 19:39 Myelocytes % 0 % 04/02/22 19:39 Promyelocytes % 0 % 04/02/22 19:39 Blast Cells % 0 % 04/02/22 19:39 Nucleated RBC % Not Reportable 04/02/22 19:39 Seg Neutrophils # 12.7 K/mm3 (1.8-7.7) H 04/07/22 03:51 Seg Neutrophils # Man 13.4 K/mm3 (1.8-7.7) H 04/02/22 19:39 Band Neutrophils # 0.0 K/mm3 04/02/22 19:39 Lymphocytes # (Manual) 0.1 K/mm3 (1.2-5.4) L 04/02/22 19:39 Abs React Lymphs (Man) 0.0 K/mm3 04/02/22 19:39 Monocytes # (Manual) 0.7 K/mm3 (0.0-0.8) 04/02/22 19:39 Eosinophils # (Manual) 0.0 K/mm3 (0.0-0.4) 04/02/22 19:39 Basophils # (Manual) 0.0 K/mm3 (0.0-0.1) 04/02/22 19:39 Metamyelocytes # 0.0 K/mm3 04/02/22 19:39 Myelocytes # 0.0 K/mm3 04/02/22 19:39 Promyelocytes # 0.0 K/mm3 04/02/22 19:39 Blast Cells # 0.0 K/mm3 04/02/22 19:39 WBC Morphology Not Reportable 04/02/22 19:39 Hypersegmented Neuts Not Reportable 04/02/22 19:39 Hyposegmented Neuts Not Reportable 04/02/22 19:39 Hypogranular Neuts Not Reportable 04/02/22 19:39 Smudge Cells Not Reportable 04/02/22 19:39 Toxic Granulation Not Reportable 04/02/22 19:39 Toxic Vacuolation Not Reportable 04/02/22 19:39 Dohle Bodies Not Reportable 04/02/22 19:39 Pelger-Huet Anomaly Not Reportable 04/02/22 19:39 Terry Rods Not Reportable 04/02/22 19:39 Platelet Estimate Consistent w auto 04/02/22 19:39 Clumped Platelets Not Reportable 04/02/22 19:39 Plt Clumps, EDTA Not Reportable 04/02/22 19:39 Large Platelets Not Reportable 04/02/22 19:39 Giant Platelets Not Reportable 04/02/22 19:39 Platelet Satelliting Not Reportable 04/02/22 19:39 Plt Morphology Comment Not Reportable 04/02/22 19:39 RBC Morphology Not Reportable 04/02/22 19:39 Dimorphic RBCs Not Reportable 04/02/22 19:39 Polychromasia Not Reportable 04/02/22 19:39 Hypochromasia Not Reportable 04/02/22 19:39 Poikilocytosis Not Reportable 04/02/22 19:39 Anisocytosis 1+ 04/02/22 19:39 Microcytosis Not Reportable 04/02/22 19:39 Macrocytosis Not Reportable 04/02/22 19:39 Spherocytes Not Reportable 04/02/22 19:39 Pappenheimer Bodies Not Reportable 04/02/22 19:39 Sickle Cells Not Reportable 04/02/22 19:39 Target Cells Not Reportable 04/02/22 19:39 Tear Drop Cells Not Reportable 04/02/22 19:39 Ovalocytes Not Reportable 04/02/22 19:39 Helmet Cells Not Reportable 04/02/22 19:39 [place] Bodies Not Reportable 04/02/22 19:39 Cogswell Rings Not Reportable 04/02/22 19:39 [place] Cells Not Reportable 04/02/22 19:39 Bite Cells Not Reportable 04/02/22 19:39 Crenated Cell Not Reportable 04/02/22 19:39 Elliptocytes Not Reportable 04/02/22 19:39 Acanthocytes (Spur) Not Reportable 04/02/22 19:39 Rouleaux Not Reportable 04/02/22 19:39 Hemoglobin C Crystals Not Reportable 04/02/22 19:39 Schistocytes Not Reportable 04/02/22 19:39 Malaria parasites Not Reportable 04/02/22 19:39 [place] Bodies Not Reportable 04/02/22 19:39 Hem Pathologist Commnt No 04/02/22 19:39 PT 13.6 Sec. (12.2-14.9) 04/13/22 04:30 INR 0.94 (0.87-1.13) 04/13/22 04:30 APTT 35.7 Sec. (24.2-36.6) 04/07/22 03:51 ABG pH 7.457 pH Units (7.350-7.450) H 04/25/22 09:00 ABG pCO2 61.7 mm Hg 04/25/22 09:00 ABG pO2 66.7 mm Hg (80.0-90.0) L 04/25/22 09:00 ABG HCO3 42.6 mmol/L (20.0-26.0) H 04/25/22 09:00 ABG O2 Saturation 95.7 % (95.0-99.0) 04/25/22 09:00 ABG O2 Content 20.0 (0.0-44) 04/25/22 09:00 ABG Base Excess 15.3 mmol/L (-2.0-3.0) H 04/25/22 09:00 ABG Hemoglobin 8.8 gm/dl (14.0-18.0) L 04/25/22 09:00 ABG Carboxyhemoglobin 1.3 % (0.0-5.0) 04/25/22 09:00 ABG Methemoglobin 0.4 % (0.0-1.5) 04/25/22 09:00 Oxyhemoglobin 94.1 % (95.0-99.0) L 04/25/22 09:00 FiO2 35 % 04/25/22 09:00 Sodium 138 mmol/L (137-145) 04/29/22 04:18 Potassium 4.3 mmol/L (3.6-5.0) 04/29/22 04:18 Chloride 95.2 mmol/L (98-107) L 04/29/22 04:18 Carbon Dioxide 38 mmol/L (22-30) H 04/29/22 04:18 Anion Gap 9 mmol/L 04/29/22 04:18 BUN 19 mg/dL (9-20) 04/29/22 04:18 Creatinine < 0.2 mg/dL (0.8-1.3) L 04/29/22 04:18 Estimated GFR > 60 ml/min 04/29/22 04:18 BUN/Creatinine Ratio 95 % 04/29/22 04:18 Glucose 116 mg/dL (75-100) H 04/29/22 04:18 POC Glucose 128 mg/dL (70-105) H 04/20/22 11:40 Lactic Acid 1.90 mmol/L (0.7-2.0) 04/02/22 19:39 Calcium 8.7 mg/dL (8.4-10.2) 04/29/22 04:18 Phosphorus 3.80 mg/dL (2.5-4.5) 04/29/22 04:18 Magnesium 1.80 mg/dL (1.7-2.3) 04/29/22 04:18 Total Bilirubin 0.80 mg/dL (0.1-1.2) 04/02/22 19:39 AST 15 units/L (5-40) 04/02/22 19:39 ALT 9 units/L (7-56) 04/02/22 19:39 Alkaline Phosphatase 43 units/L (35-129) 04/02/22 19:39 Total Creatine Kinase 46 units/L (55-170) L 04/08/22 17:47 CK-MB (CK-2) 2.6 ng/mL (0.0-4.0) 04/08/22 17:47 CK-MB (CK-2) Rel Index 5.6 (0-4) H 04/08/22 17:47 Troponin T 0.031 ng/mL (0.00-0.029) H 04/08/22 17:47 C-Reactive Protein 31.60 mg/dL (0.00-1.30) H 04/04/22 04:18 Total Protein 4.6 g/dL (6.3-8.2) L 04/02/22 19:39 Albumin 2.7 g/dL (3.9-5) L 04/02/22 19:39 Albumin/Globulin Ratio 1.4 % 04/02/22 19:39 Triglycerides 80 mg/dL (2-149) 04/02/22 19:39 Cholesterol 94 mg/dL (50-199) 04/02/22 19:39 LDL Cholesterol Direct 27 mg/dL (50-130) L 04/02/22 19:39 HDL Cholesterol 47 mg/dL (40-59) 04/02/22 19:39 Cholesterol/HDL Ratio 2.00 % 04/02/22 19:39 Procalcitonin 0.08 ng/mL (<0.15) 04/04/22 04:18 Urine Color [place] (Yellow) 04/05/22 17:45 Urine Turbidity Cloudy (Clear) 04/05/22 17:45 Urine pH 5.0 (5.0-7.0) 04/05/22 17:45 Ur Specific [place] 1.021 (1.003-1.030) 04/05/22 17:45 Urine Protein 30 mg/dl mg/dL (Negative) 04/05/22 17:45 Urine Glucose (UA) Neg mg/dL (Negative) 04/05/22 17:45 Urine Ketones Tr mg/dL (Negative) 04/05/22 17:45 Urine Blood Sm (Negative) 04/05/22 17:45 Urine Nitrite Neg (Negative) 04/05/22 17:45 Urine Bilirubin Neg (Negative) 04/05/22 17:45 Urine Urobilinogen < 2.0 mg/dL (<2.0) 04/05/22 17:45 Ur Leukocyte Esterase Tr (Negative) 04/05/22 17:45 Urine WBC (Auto) 8.0 /HPF (0.0-6.0) H 04/05/22 17:45 Urine RBC (Auto) 3.0 /HPF (0.0-6.0) 04/05/22 17:45 U Epithel Cells (Auto) 2.0 /HPF (0-13.0) 04/05/22 17:45 Urine Bacteria (Auto) 1+ /HPF (Negative) 04/02/22 Unknown Hyaline Casts 1 /LPF 04/05/22 17:45 Urine Mucus 3+ /HPF 04/05/22 17:45 Nasal Screen MRSA (PCR) Negative (Negative) 04/05/22 12:37 Vancomycin Trough 6.0 ug/mL (5.0-20.0) 04/05/22 18:53 Coronavirus (PCR) Negative (Negative) 04/07/22 14:52 Perez/IV: Voiding Method Condom Catheter Active Medications - Current Medications Current Medications: Generic Name Dose Route Start Last Admin Trade Name Freq PRN Reason Stop Dose Admin Acetaminophen 650 mg 04/02/22 23:53 04/30/22 12:40 Acetaminophen 325 Mg Tab PO 650 mg Q6H PRN Administration Pain MILD(1-3)/Fever >100.5/FAITH Acetylcysteine 200 mg 04/21/22 16:00 04/30/22 23:33 Acetylcysteine 20% 200 Mg/1 Ml *For Inhalation Use* INHALATION 200 mg Q8HRT SEGUNDO Administration Albuterol 2.5 mg 04/06/22 16:00 04/30/22 23:33 Albuterol 2.5 Mg/3 Ml Nebu IH 2.5 mg Q8HRT SEGUNDO Administration Bisacodyl 10 mg 04/07/22 09:44 04/12/22 10:06 Bisacodyl 10 Mg Rect Supp MO 10 mg QDAY PRN Administration Constipation Dextrose 50 ml 04/06/22 17:54 Dextrose 50% In Water (25gm) 50 Ml Syringe IV Q30MIN PRN Hypoglycemia Protocol Docusate Sodium 100 mg 04/28/22 10:00 04/30/22 22:51 Docusate Sodium 100 Mg/10 Ml Oral Liqd FEEDTUBE 100 mg BID SEGUNDO Administration Famotidine 20 mg 04/06/22 10:00 04/30/22 22:51 Famotidine 20 Mg Tab FEEDTUBE 20 mg BID SEGUNDO Administration Fentanyl 50 mcg 04/04/22 15:56 04/29/22 21:40 Fentanyl 100 Mcg/2 Ml Inj IV 50 mcg Q2HR PRN Administration For CPOT of greater than 3 Heparin Sodium (Porcine) 5,000 unit 04/03/22 06:00 05/01/22 06:32 Heparin 5,000 Unit/1 Ml Vial SUB-Q 5,000 unit Q8HR SEGUNDO Administration Insulin Human Regular 0 units 04/06/22 18:00 04/30/22 17:12 Insulin Regular, Human 100 Units/1 Ml SUB-Q Not Given Q6H [facility] Protocol Magnesium Hydroxide 30 ml 04/02/22 23:53 Magnesium Hydroxide (Mom) Oral Liqd Udc PO Q4H PRN Constipation Metoprolol Tartrate 25 mg 04/16/22 18:00 05/01/22 06:32 Metoprolol Tartrate 25 Mg Tab FEEDTUBE 25 mg Q6HR SEGUNDO Administration Ondansetron HCl 4 mg 04/02/22 23:53 Ondansetron 4 Mg/2 Ml Inj IV Q8H PRN Nausea And Vomiting Polyethylene Glycol 17 gm 04/08/22 10:00 04/30/22 09:27 Polyethylene Glycol 3350 17 Gm Powder PO Not Given QDAY SEGUNDO Quetiapine Fumarate 50 mg 04/28/22 10:00 04/30/22 22:51 Quetiapine 25 Mg Tab FEEDTUBE 50 mg BID SEGUNDO Administration Senna 17.6 mg 04/28/22 10:00 04/30/22 22:51 Sennosides Oral Liqd 8.8 Mg/5 Ml Oral Liqd FEEDTUBE 17.6 mg Q12HR SEGUNDO Administration Sodium Chloride 10 ml 04/03/22 10:00 04/30/22 09:26 Sodium Chloride 0.9% 10 Ml Flush Syringe IV 10 ml BID SEGUNDO Administration Sodium Chloride 10 ml 04/02/22 23:53 Sodium Chloride 0.9% 10 Ml Flush Syringe IV PRN PRN LINE FLUSH Nutrition/Malnutrition Assess - Dietary Evaluation Nutrition/Malnutrition Findings: Nutrition Notes Start: 04/04/22 13:13 Freq: Status: Active Protocol: Document 04/27/22 11:53 COLLEEN (Rec: 04/27/22 12:21 COLLEEN [id number]) Nutrition Notes Initial or Follow up Reassessment Current Diagnosis Coronary Artery Disease, Decubitus(Pressure Ulcer), Sepsis,Respiratory Failure, Malnutrition Other Pertinent Diagnosis HCAP, HFpEF, ALS, Pleural Effusion, R-Lung Collapse, .. . Current Diet TF-Vital AF 1.2 Inderjit @ 50 ml/hr (since D 04/15). Labs/Tests 04/27: Cl 93.2, CO2 37, Crea < 0.2, Glu 114. Pertinent Medications 04/27: Nutritionally unremarkable. Height 5 ft 4.8 in Weight 46.8 kg [place] Body Weight (kg) 61.27 BMI 17.2 Weight change and time frame No body weight change reported in 3 weeks. Weight Status Underweight Subjective/Other Information RD consult for routine F/U on TF tolerance/continuation. TF continues as prescribed, and well tolerated, according to RN notes. Pt continues on Mechanical ventilation, O2 saturation @ 96%, according to Physical Assessment Histroy notes. Pt continues to present constipation, according to Physical Assessment Histroy notes. 3 failed attempts to wean Pt from Mechanical Ventilation, Pt is back to previous settings in PR[facility], according to RN notes. Pt is pending authorization for LTAC placement, according to Progress notes. Percent of energy/protein needs met: Prescribed TF-Vital AF 1.2 Inderjit @ 50 ml/hr provides for energy/protein needs (1,450 Kcal/91 g) during LOS, 98% Kcal; 100% AA. Burn Absent Trauma Absent GI Symptoms Constipation Difficulty In Swallowing,Chewing Food Allergy No Skin Integrity/Comment Sacral open wound. Current % PO Other Minimum of two criteria No #1 Nutrition Diagnosis Inadequate oral intake Diagnosis Progress(for reassessment Continues documentation) Is patient on ventilator? Yes Is Patient Ambulatory and/or Out of Bed No REE-([place]-confined to bed) 4530.554 [facility] Additional Notes Protein: 1.2-2 g/Kg IBW; 73- 122 g/day. Fluids: 1 ml/Kcal, or as per MD. Nutrition Intervention Nutrition Support: Continue TF-Vital AF 1.2 Inderjit @ 50 ml/hr. Flush: 80 ml water Q 4 hr, or as per MD. Kcal 1,450 Protein (gm) 91 Carbohydrates (gm) 134 Fat (gm) 65 Fluid (mL) 980 Fiber (gm) 6 % RDI: 98% Kcal; 100% AA. Goal #1 Provide at least 75% of energy /protein needs through Enteral Feeding during LOS. Follow-Up By: 05/04/22 Additional Comments Continue monitoring TF tolerance and BM.
[2022-04-30] MEDS: ACETAMINOPHEN 325 MG TAB PO PRN (12:40)
[2022-05-01] MEDS: METOPROLOL TARTRATE 25 MG TAB FEEDTUBE SCH ×4 (00:49→18:00)
[2022-05-01] MEDS: HEPARIN 5,000 UNIT/1 ML VIAL SUB-Q SCH ×3 (06:32→22:48)
[2022-05-01] MEDS: DOCUSATE SODIUM 100 MG/10 ML ORAL LIQD FEEDTUBE SCH ×2 (09:33→22:48)
[2022-05-01] MEDS: FAMOTIDINE 20 MG TAB FEEDTUBE SCH ×2 (09:33→22:48)
[2022-05-01] MEDS: QUEtiapine 25 MG TAB FEEDTUBE SCH ×2 (09:33→22:48)
[2022-05-01] MEDS: SENNOSIDES ORAL LIQD 8.8 MG/5 ML ORAL LIQD FEEDTUBE SCH ×2 (09:33→22:48)
[2022-05-01] MEDS: POLYETHYLENE GLYCOL 3350 17 GM POWDER PO SCH (09:33)
[2022-05-01] MEDS: ALBUTEROL 2.5 MG/3 ML NEBU IH SCH ×2 (09:49→16:50)
[2022-05-01] MEDS: ACETYLCYSTEINE 20% 200 MG/1 ML *FOR INHALATION USE INHALATION SCH ×2 (09:49→16:55)
--- NOTE | 2022-05-01 10:23 | Progress Note ---
Assessment and Plan 1. Community-acquired bronchopneumonia 2. Respiratory failure s/p intubation on mechanical ventilator. 3. Equivocal serum troponin elevation rule out ischemic coronary artery disease 4. Cardiomyopathy unspecified left ventricular ejection fraction 40 to 45% 5. ALS Plan. Clinical status remians unchanged. continue supportive cardiac mangement Subjective Date of service: 05/01/22 Principal diagnosis: Ac and ch hypercapnic and hypoxemic Resp Failure; ALS; HCAP; Sepsis; NSTEMI Interval history: Patient is alert and responsive to questions he is still remains intubated on mechanical ventilator. Objective Vital Signs Temp Pulse Pulse Pulse Pulse Resp Resp 05/01/22 09:35 106 H 05/01/22 08:20 05/01/22 08:00 98.9 F 107 H 17 05/01/22 07:00 103 H 14 05/01/22 06:32 108 H 05/01/22 06:00 107 H 14 05/01/22 05:00 107 H 16 05/01/22 04:36 108 H 05/01/22 04:00 98.5 F 104 H 71 14 05/01/22 03:00 97 H 14 05/01/22 02:00 90 14 05/01/22 01:00 95 H 14 05/01/22 00:49 110 H 05/01/22 00:04 05/01/22 00:00 98.7 F 96 H 73 14 04/30/22 23:33 93 H 04/30/22 23:27 89 04/30/22 23:00 94 H 14 04/30/22 22:00 107 H 15 04/30/22 21:07 102 H 14 04/30/22 21:00 101 H 14 04/30/22 20:00 98.9 F 106 H 103 H 14 04/30/22 19:27 108 H 04/30/22 19:00 106 H 14 04/30/22 18:00 103 H 14 04/30/22 17:00 101 H 14 04/30/22 16:15 99 H 95 H 14 04/30/22 16:07 97 H 97 H 14 04/30/22 16:00 98 F 94 H 14 04/30/22 15:00 101 H 15 04/30/22 14:00 100 H 14 04/30/22 13:20 99.2 F 04/30/22 13:00 115 H 14 04/30/22 12:18 108 H 04/30/22 12:03 102 H 102 H 14 04/30/22 12:00 100.5 F H 101 H 14 04/30/22 11:00 99 H 14 Resp BP Pulse Ox Pulse Ox 05/01/22 09:35 110/65 94 05/01/22 08:20 94 05/01/22 08:00 109/64 91 05/01/22 07:00 110/65 91 05/01/22 06:32 112/69 05/01/22 06:00 113/65 87 05/01/22 05:00 111/65 93 05/01/22 04:36 111/65 95 05/01/22 04:00 111/62 94 05/01/22 03:00 97/63 96 05/01/22 02:00 95/58 95 05/01/22 01:00 94/54 92 05/01/22 00:49 110/72 05/01/22 00:04 94 05/01/22 00:00 98/51 93 04/30/22 23:33 14 04/30/22 23:27 88/49 92 04/30/22 23:00 97/62 94 04/30/22 22:00 109/71 90 04/30/22 21:07 102/68 90 04/30/22 21:00 102/68 94 04/30/22 20:00 105/69 96 04/30/22 19:27 112/69 92 04/30/22 19:00 107/66 95 04/30/22 18:00 106/63 96 04/30/22 17:00 105/60 04/30/22 16:15 14 96 04/30/22 16:07 88 04/30/22 16:00 89/53 96 04/30/22 15:00 98/57 04/30/22 14:00 93/53 04/30/22 13:20 04/30/22 13:00 101/63 95 04/30/22 12:18 93/55 95 04/30/22 12:03 94 04/30/22 12:00 93/55 94 04/30/22 11:00 89/50 95 - Physical Examination General: Other (On the vent via tracheostomy) HEENT: Positive: PERRL, Normocephaly, Other (ET-tube in place) Neck: Positive: neck supple, trachea midline (intubated). Negative: JVD/HJR Cardiac: Positive: Regular Rate, S1/S2. Negative: S3, S4 Lungs: Positive: clear to auscultation, No Wheeze, Rales, Rhonchi Neuro: Positive: Weakness (Generalized myopathy, patient with ALS), Other (On the vent via tracheostomy) Abdomen: Positive: Soft Skin: Positive: Clear Extremities: Present: Other (TR.EDEMA). Absent: edema (NO) - Allied health notes Allied health notes reviewed: nursing
--- NOTE | 2022-05-01 11:11 | Progress Note ---
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 -Monitoring renal function, hemodynamics and electrolyte profile -Accuchecks with glycemic control. target blood glucose 140-180 mg/dL. Avoid hypoglycemia -Continue enteric nutritional support, bowel regimen -VTE prophylaxis- Heparin -Avoid nephrotoxins and renally dose all medications -Stress ulcer prophylaxis- Famotidine -Mobility, frequent turning, off loading per facility protocol to prevent pressure ulcers -Maintain sleep wake cycle, avoid benzodiazepines. -Limit delirium CONDITION:CRITICAL PROGNOSIS: GUARDED CODE STATUS; FULL CODE The high probability of a clinically significant, sudden or life threatening deterioration of the respiratory, cardiovascular, neurology system required my full and direct attention, intervention and personal management. The aggregate critical care time was [33] minutes. 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 Vitals, labs, medications, chart and imaging reviewed. Discussed with respiratory and nursing care staff. s/p trach and PEG. On PEEP 10 and FIO2 45 % No reported fevers, no vomiting, no diarrhea Patient continues to fail PSV trial. Objective Vital Signs - 12hr 04/30/22 04/30/22 05/01/22 23:27 23:33 00:00 Temperature 98.7 F Pulse Rate 89 96 H Pulse Rate [ 93 H Bilateral Throughout] Pulse Rate [ 73 From Monitor] Respiratory 14 Rate Respiratory 14 Rate [Bilateral Throughout] Blood Pressure 88/49 98/51 O2 Sat by Pulse 92 93 Oximetry O2 Sat by Pulse Oximetry [ Assessment] 05/01/22 05/01/22 05/01/22 00:04 00:49 01:00 Temperature Pulse Rate 110 H 95 H Pulse Rate [ Bilateral Throughout] Pulse Rate [ From Monitor] Respiratory 14 Rate Respiratory Rate [Bilateral Throughout] Blood Pressure 110/72 94/54 O2 Sat by Pulse 92 Oximetry O2 Sat by Pulse 94 Oximetry [ Assessment] 05/01/22 05/01/22 05/01/22 02:00 03:00 04:00 Temperature 98.5 F Pulse Rate 90 97 H 104 H Pulse Rate [ Bilateral Throughout] Pulse Rate [ 71 From Monitor] Respiratory 14 14 14 Rate Respiratory Rate [Bilateral Throughout] Blood Pressure 95/58 97/63 111/62 O2 Sat by Pulse 95 96 94 Oximetry O2 Sat by Pulse Oximetry [ Assessment] 05/01/22 05/01/22 05/01/22 04:36 05:00 06:00 Temperature Pulse Rate 108 H 107 H 107 H Pulse Rate [ Bilateral Throughout] Pulse Rate [ From Monitor] Respiratory 16 14 Rate Respiratory Rate [Bilateral Throughout] Blood Pressure 111/65 111/65 113/65 O2 Sat by Pulse 95 93 87 Oximetry O2 Sat by Pulse Oximetry [ Assessment] 05/01/22 05/01/22 05/01/22 06:32 07:00 08:00 Temperature 98.9 F Pulse Rate 108 H 103 H 107 H Pulse Rate [ Bilateral Throughout] Pulse Rate [ From Monitor] Respiratory 14 17 Rate Respiratory Rate [Bilateral Throughout] Blood Pressure 112/69 110/65 109/64 O2 Sat by Pulse 91 91 Oximetry O2 Sat by Pulse Oximetry [ Assessment] 05/01/22 05/01/22 08:20 09:35 Temperature Pulse Rate 106 H Pulse Rate [ Bilateral Throughout] Pulse Rate [ From Monitor] Respiratory Rate Respiratory Rate [Bilateral Throughout] Blood Pressure 110/65 O2 Sat by Pulse 94 94 Oximetry O2 Sat by Pulse Oximetry [ Assessment] Constitutional: alert, appears uncomfortable, other (trach to MVS, in bed with mildly increased respiratory effort at rest) Eyes: non-icteric ENT: oropharynx moist, other (+ midline tracheostomy) Neck: supple, no lymphadenopathy, no JVD Effort: mildly labored Ascultation: Bilateral: diminished breath sounds (bases), rhonchi Percussion: Bilateral: not dull Cardiovascular: regular rate and rhythm, other (S1,S2) Gastrointestinal: normoactive bowel sounds, soft, non-tender, non-distended Integumentary: normal Extremities: no cyanosis, no edema, pink and warm, pulses normal Neurologic: pupils equal and round, other (functional quadriplegia) Psychiatric: mood appropriate, affect normal, anxious (affect), other CBC and BMP: 05/02/22 04:29 04/29/22 04:18 ABG, PT/INR, D-dimer: ABG ABG pH 7.457 pH Units (7.350-7.450) H 04/25/22 09:00 ABG pCO2 61.7 mm Hg 04/25/22 09:00 ABG pO2 66.7 mm Hg (80.0-90.0) L 04/25/22 09:00 ABG O2 Saturation 95.7 % (95.0-99.0) 04/25/22 09:00 PT/INR, D-dimer PT 13.6 Sec. (12.2-14.9) 04/13/22 04:30 INR 0.94 (0.87-1.13) 04/13/22 04:30 Abnormal lab findings: Abnormal Labs 04/02/22 04/02/22 04/02/22 19:39 19:39 19:39 WBC 14.3 H RBC Hgb Hct MCV 96 H Plt Count 104 L Lymph % (Auto) [place] % (Auto) Lymph # (Auto) [place] # (Auto) Seg Neutrophils % Seg Neuts % (Manual) 94.0 H Lymphocytes % (Manual) 1.0 L Seg Neutrophils # Seg Neutrophils # Man 13.4 H Lymphocytes # (Manual) 0.1 L PT 15.9 H INR 1.14 H ABG pH ABG pO2 ABG HCO3 ABG O2 Saturation ABG Base Excess ABG Hemoglobin Oxyhemoglobin Sodium 151 H Potassium Chloride Carbon Dioxide BUN Creatinine 0.5 L Glucose POC Glucose Calcium 8.2 L Phosphorus Magnesium 1.60 L Total Creatine Kinase CK-MB (CK-2) Rel Index Troponin T 0.048 H C-Reactive Protein Total Protein 4.6 L Albumin 2.7 L LDL Cholesterol Direct 27 L Urine WBC (Auto) 04/02/22 04/03/22 04/03/22 19:42 05:14 06:30 WBC RBC Hgb Hct MCV Plt Count Lymph % (Auto) [place] % (Auto) Lymph # (Auto) [place] # (Auto) Seg Neutrophils % Seg Neuts % (Manual) Lymphocytes % (Manual) Seg Neutrophils # Seg Neutrophils # Man Lymphocytes # (Manual) PT INR ABG pH 7.471 H 7.496 H ABG pO2 47.8 L 91.0 H ABG HCO3 30.6 H ABG O2 Saturation 94.4 L ABG Base Excess 6.2 H ABG Hemoglobin 11.0 L 12.8 L Oxyhemoglobin 93.1 L Sodium 149 H Potassium 3.4 L Chloride Carbon Dioxide BUN Creatinine 0.4 L Glucose POC Glucose Calcium Phosphorus Magnesium Total Creatine Kinase CK-MB (CK-2) Rel Index Troponin T C-Reactive Protein Total Protein Albumin LDL Cholesterol Direct Urine WBC (Auto) 04/04/22 04/04/22 04/04/22 04:18 04:18 05:50 WBC 11.8 H RBC Hgb Hct MCV Plt Count 132 L Lymph % (Auto) [place] % (Auto) Lymph # (Auto) [place] # (Auto) Seg Neutrophils % Seg Neuts % (Manual) Lymphocytes % (Manual) Seg Neutrophils # Seg Neutrophils # Man Lymphocytes # (Manual) PT INR ABG pH 7.517 H ABG pO2 115.5 H ABG HCO3 29.9 H ABG O2 Saturation ABG Base Excess 6.7 H ABG Hemoglobin 12.3 L Oxyhemoglobin Sodium Potassium 3.5 L Chloride Carbon Dioxide 31 H BUN Creatinine 0.3 L Glucose 153 H POC Glucose Calcium Phosphorus 1.40 L Magnesium 1.50 L Total Creatine Kinase CK-MB (CK-2) Rel Index Troponin T C-Reactive Protein 31.60 H Total Protein Albumin LDL Cholesterol Direct Urine WBC (Auto) 04/05/22 04/05/22 04/05/22 02:50 05:25 11:28 WBC RBC Hgb Hct MCV Plt Count Lymph % (Auto) [place] % (Auto) Lymph # (Auto) [place] # (Auto) Seg Neutrophils % Seg Neuts % (Manual) Lymphocytes % (Manual) Seg Neutrophils # Seg Neutrophils # Man Lymphocytes # (Manual) PT INR ABG pH 7.455 H ABG pO2 50.7 L ABG HCO3 30.5 H ABG O2 Saturation 89.4 L ABG Base Excess 5.9 H ABG Hemoglobin 11.8 L Oxyhemoglobin 88.2 L Sodium Potassium Chloride Carbon Dioxide 32 H BUN Creatinine 0.2 L Glucose 110 H POC Glucose 124 H Calcium 7.9 L Phosphorus Magnesium Total Creatine Kinase CK-MB (CK-2) Rel Index Troponin T C-Reactive Protein Total Protein Albumin LDL Cholesterol Direct Urine WBC (Auto) 04/05/22 04/05/22 04/06/22 17:45 Unknown 04:00 WBC RBC 3.55 L Hgb 11.1 L 11.5 L Hct 33.2 L 35.1 L MCV Plt Count 113 L 114 L Lymph % (Auto) [place] % (Auto) Lymph # (Auto) [place] # (Auto) Seg Neutrophils % Seg Neuts % (Manual) Lymphocytes % (Manual) Seg Neutrophils # Seg Neutrophils # Man Lymphocytes # (Manual) PT INR ABG pH ABG pO2 ABG HCO3 ABG O2 Saturation ABG Base Excess ABG Hemoglobin Oxyhemoglobin Sodium Potassium Chloride Carbon Dioxide BUN Creatinine Glucose POC Glucose Calcium Phosphorus Magnesium Total Creatine Kinase CK-MB (CK-2) Rel Index Troponin T C-Reactive Protein Total Protein Albumin LDL Cholesterol Direct Urine WBC (Auto) 8.0 H 04/06/22 04/06/22 04/07/22 04:00 08:30 00:04 WBC RBC Hgb Hct MCV Plt Count Lymph % (Auto) [place] % (Auto) Lymph # (Auto) [place] # (Auto) Seg Neutrophils % Seg Neuts % (Manual) Lymphocytes % (Manual) Seg Neutrophils # Seg Neutrophils # Man Lymphocytes # (Manual) PT INR ABG pH ABG pO2 60.8 L ABG HCO3 30.5 H ABG O2 Saturation 93.3 L ABG Base Excess 4.9 H ABG Hemoglobin 12.4 L Oxyhemoglobin 92.1 L Sodium Potassium 3.0 L Chloride Carbon Dioxide BUN Creatinine < 0.2 L Glucose 130 H POC Glucose 117 H Calcium 8.1 L Phosphorus Magnesium Total Creatine Kinase CK-MB (CK-2) Rel Index Troponin T C-Reactive Protein Total Protein Albumin LDL Cholesterol Direct Urine WBC (Auto) 04/07/22 04/07/22 04/07/22 03:51 03:51 03:51 WBC 14.6 H RBC 3.57 L Hgb 11.1 L Hct 33.2 L MCV Plt Count 118 L Lymph % (Auto) 4.3 L [place] % (Auto) 8.8 H Lymph # (Auto) 0.6 L [place] # (Auto) 1.3 H Seg Neutrophils % 86.6 H Seg Neuts % (Manual) Lymphocytes % (Manual) Seg Neutrophils # 12.7 H Seg Neutrophils # Man Lymphocytes # (Manual) PT 15.2 H INR ABG pH ABG pO2 ABG HCO3 ABG O2 Saturation ABG Base Excess ABG Hemoglobin Oxyhemoglobin Sodium 133 L Potassium Chloride 96.0 L Carbon Dioxide 31 H BUN Creatinine 0.2 L Glucose 130 H POC Glucose Calcium 8.0 L Phosphorus Magnesium Total Creatine Kinase CK-MB (CK-2) Rel Index Troponin T C-Reactive Protein Total Protein Albumin LDL Cholesterol Direct Urine WBC (Auto) 04/07/22 04/07/22 04/08/22 04:25 09:10 04:49 WBC 16.1 H RBC 3.54 L Hgb 10.9 L Hct 33.3 L MCV Plt Count Lymph % (Auto) [place] % (Auto) Lymph # (Auto) [place] # (Auto) Seg Neutrophils % Seg Neuts % (Manual) Lymphocytes % (Manual) Seg Neutrophils # Seg Neutrophils # Man Lymphocytes # (Manual) PT INR ABG pH ABG pO2 71.0 L 63.4 L ABG HCO3 31.5 H 40.0 H ABG O2 Saturation 94.9 L ABG Base Excess 5.9 H 13.6 H ABG Hemoglobin 11.3 L 9.0 L Oxyhemoglobin 93.6 L Sodium Potassium Chloride Carbon Dioxide BUN Creatinine Glucose POC Glucose Calcium Phosphorus Magnesium Total Creatine Kinase CK-MB (CK-2) Rel Index Troponin T C-Reactive Protein Total Protein Albumin LDL Cholesterol Direct Urine WBC (Auto) 04/08/22 04/08/22 04/08/22 04:49 09:53 10:25 WBC RBC Hgb Hct MCV Plt Count Lymph % (Auto) [place] % (Auto) Lymph # (Auto) [place] # (Auto) Seg Neutrophils % Seg Neuts % (Manual) Lymphocytes % (Manual) Seg Neutrophils # Seg Neutrophils # Man Lymphocytes # (Manual) PT INR ABG pH ABG pO2 ABG HCO3 34.7 H ABG O2 Saturation ABG Base Excess 7.9 H ABG Hemoglobin 11.0 L Oxyhemoglobin Sodium 136 L Potassium Chloride 97.7 L Carbon Dioxide 33 H BUN Creatinine 0.2 L Glucose 155 H POC Glucose Calcium Phosphorus Magnesium Total Creatine Kinase CK-MB (CK-2) Rel Index Troponin T 0.030 H C-Reactive Protein Total Protein Albumin LDL Cholesterol Direct Urine WBC (Auto) 04/08/22 04/08/22 04/08/22 11:19 17:47 18:06 WBC RBC Hgb Hct MCV Plt Count Lymph % (Auto) [place] % (Auto) Lymph # (Auto) [place] # (Auto) Seg Neutrophils % Seg Neuts % (Manual) Lymphocytes % (Manual) Seg Neutrophils # Seg Neutrophils # Man Lymphocytes # (Manual) PT INR ABG pH ABG pO2 ABG HCO3 ABG O2 Saturation ABG Base Excess ABG Hemoglobin Oxyhemoglobin Sodium Potassium Chloride Carbon Dioxide BUN Creatinine Glucose POC Glucose 121 H Calcium Phosphorus Magnesium Total Creatine Kinase 31 L 46 L CK-MB (CK-2) Rel Index 6.4 H 5.6 H Troponin T 0.030 H 0.031 H C-Reactive Protein Total Protein Albumin LDL Cholesterol Direct Urine WBC (Auto) 04/09/22 04/09/22 04/09/22 04:35 04:35 11:24 WBC 11.5 H RBC 3.16 L Hgb 9.9 L Hct 29.4 L MCV Plt Count 131 L Lymph % (Auto) [place] % (Auto) Lymph # (Auto) [place] # (Auto) Seg Neutrophils % Seg Neuts % (Manual) Lymphocytes % (Manual) Seg Neutrophils # Seg Neutrophils # Man Lymphocytes # (Manual) PT INR ABG pH ABG pO2 ABG HCO3 ABG O2 Saturation ABG Base Excess ABG Hemoglobin Oxyhemoglobin Sodium Potassium Chloride 97.1 L Carbon Dioxide 35 H BUN Creatinine < 0.2 L Glucose 145 H POC Glucose 147 H Calcium Phosphorus Magnesium Total Creatine Kinase CK-MB (CK-2) Rel Index Troponin T C-Reactive Protein Total Protein Albumin LDL Cholesterol Direct Urine WBC (Auto) 04/09/22 04/09/22 04/09/22 13:00 17:32 23:48 WBC RBC Hgb Hct MCV Plt Count Lymph % (Auto) [place] % (Auto) Lymph # (Auto) [place] # (Auto) Seg Neutrophils % Seg Neuts % (Manual) Lymphocytes % (Manual) Seg Neutrophils # Seg Neutrophils # Man Lymphocytes # (Manual) PT INR ABG pH ABG pO2 66.6 L ABG HCO3 38.2 H ABG O2 Saturation 94.4 L ABG Base Excess 10.7 H ABG Hemoglobin 10.7 L Oxyhemoglobin 92.8 L Sodium Potassium Chloride Carbon Dioxide BUN Creatinine Glucose POC Glucose 143 H 114 H Calcium Phosphorus Magnesium Total Creatine Kinase CK-MB (CK-2) Rel Index Troponin T C-Reactive Protein Total Protein Albumin LDL Cholesterol Direct Urine WBC (Auto) 04/10/22 04/10/22 04/10/22 04:48 04:48 05:34 WBC RBC 2.91 L Hgb 9.1 L Hct 27.7 L MCV 95 H Plt Count Lymph % (Auto) [place] % (Auto) Lymph # (Auto) [place] # (Auto) Seg Neutrophils % Seg Neuts % (Manual) Lymphocytes % (Manual) Seg Neutrophils # Seg Neutrophils # Man Lymphocytes # (Manual) PT INR ABG pH ABG pO2 ABG HCO3 ABG O2 Saturation ABG Base Excess ABG Hemoglobin Oxyhemoglobin Sodium Potassium Chloride 95.7 L Carbon Dioxide 38 H BUN Creatinine < 0.2 L Glucose 118 H POC Glucose 127 H Calcium Phosphorus Magnesium Total Creatine Kinase CK-MB (CK-2) Rel Index Troponin T C-Reactive Protein Total Protein Albumin LDL Cholesterol Direct Urine WBC (Auto) 04/10/22 04/11/22 04/11/22 23:10 04:15 04:15 WBC 17.2 H RBC 2.98 L Hgb 9.2 L Hct 27.9 L MCV Plt Count Lymph % (Auto) [place] % (Auto) Lymph # (Auto) [place] # (Auto) Seg Neutrophils % Seg Neuts % (Manual) Lymphocytes % (Manual) Seg Neutrophils # Seg Neutrophils # Man Lymphocytes # (Manual) PT INR ABG pH ABG pO2 ABG HCO3 ABG O2 Saturation ABG Base Excess ABG Hemoglobin Oxyhemoglobin Sodium Potassium Chloride 96.1 L Carbon Dioxide 35 H BUN Creatinine < 0.2 L Glucose 138 H POC Glucose 106 H Calcium 8.3 L Phosphorus Magnesium Total Creatine Kinase CK-MB (CK-2) Rel Index Troponin T C-Reactive Protein Total Protein Albumin LDL Cholesterol Direct Urine WBC (Auto) 04/11/22 04/11/22 04/11/22 05:31 13:18 16:20 WBC RBC Hgb Hct MCV Plt Count Lymph % (Auto) [place] % (Auto) Lymph # (Auto) [place] # (Auto) Seg Neutrophils % Seg Neuts % (Manual) Lymphocytes % (Manual) Seg Neutrophils # Seg Neutrophils # Man Lymphocytes # (Manual) PT INR ABG pH ABG pO2 57.8 L ABG HCO3 40.5 H ABG O2 Saturation 90.6 L ABG Base Excess 12.6 H ABG Hemoglobin 10.5 L Oxyhemoglobin 89.0 L Sodium Potassium Chloride Carbon Dioxide BUN Creatinine Glucose POC Glucose 129 H 132 H Calcium Phosphorus Magnesium Total Creatine Kinase CK-MB (CK-2) Rel Index Troponin T C-Reactive Protein Total Protein Albumin LDL Cholesterol Direct Urine WBC (Auto) 04/11/22 04/11/22 04/12/22 17:29 23:17 04:00 WBC 17.4 H RBC 2.96 L Hgb 9.0 L Hct 28.0 L MCV 95 H Plt Count Lymph % (Auto) [place] % (Auto) Lymph # (Auto) [place] # (Auto) Seg Neutrophils % Seg Neuts % (Manual) Lymphocytes % (Manual) Seg Neutrophils # Seg Neutrophils # Man Lymphocytes # (Manual) PT INR ABG pH ABG pO2 ABG HCO3 ABG O2 Saturation ABG Base Excess ABG Hemoglobin Oxyhemoglobin Sodium Potassium Chloride Carbon Dioxide BUN Creatinine Glucose POC Glucose 125 H 151 H Calcium Phosphorus Magnesium Total Creatine Kinase CK-MB (CK-2) Rel Index Troponin T C-Reactive Protein Total Protein Albumin LDL Cholesterol Direct Urine WBC (Auto) 04/12/22 04/12/22 04/12/22 04:00 17:03 23:39 WBC RBC Hgb Hct MCV Plt Count Lymph % (Auto) [place] % (Auto) Lymph # (Auto) [place] # (Auto) Seg Neutrophils % Seg Neuts % (Manual) Lymphocytes % (Manual) Seg Neutrophils # Seg Neutrophils # Man Lymphocytes # (Manual) PT INR ABG pH ABG pO2 ABG HCO3 ABG O2 Saturation ABG Base Excess ABG Hemoglobin Oxyhemoglobin Sodium Potassium Chloride 97.4 L Carbon Dioxide 37 H BUN Creatinine < 0.2 L Glucose 127 H POC Glucose 106 H 107 H Calcium Phosphorus Magnesium Total Creatine Kinase CK-MB (CK-2) Rel Index Troponin T C-Reactive Protein Total Protein Albumin LDL Cholesterol Direct Urine WBC (Auto) 04/13/22 04/13/22 04/13/22 04:30 04:30 17:39 WBC 14.1 H RBC 2.66 L Hgb 8.4 L Hct 25.5 L MCV 96 H Plt Count Lymph % (Auto) [place] % (Auto) Lymph # (Auto) [place] # (Auto) Seg Neutrophils % Seg Neuts % (Manual) Lymphocytes % (Manual) Seg Neutrophils # Seg Neutrophils # Man Lymphocytes # (Manual) PT INR ABG pH ABG pO2 ABG HCO3 ABG O2 Saturation ABG Base Excess ABG Hemoglobin Oxyhemoglobin Sodium Potassium Chloride 93.9 L Carbon Dioxide 39 H BUN Creatinine < 0.2 L Glucose POC Glucose 134 H Calcium Phosphorus 1.90 L Magnesium Total Creatine Kinase CK-MB (CK-2) Rel Index Troponin T C-Reactive Protein Total Protein Albumin LDL Cholesterol Direct Urine WBC (Auto) 04/14/22 04/14/22 04/14/22 05:03 05:03 09:10 WBC 15.6 H RBC 3.02 L Hgb 9.3 L Hct 28.8 L MCV 95 H Plt Count Lymph % (Auto) [place] % (Auto) Lymph # (Auto) [place] # (Auto) Seg Neutrophils % Seg Neuts % (Manual) Lymphocytes % (Manual) Seg Neutrophils # Seg Neutrophils # Man Lymphocytes # (Manual) PT INR ABG pH ABG pO2 66.9 L ABG HCO3 44.5 H ABG O2 Saturation ABG Base Excess 17.2 H ABG Hemoglobin 8.1 L Oxyhemoglobin 94.8 L Sodium Potassium Chloride 93.8 L Carbon Dioxide 42 H* BUN Creatinine < 0.2 L Glucose 117 H POC Glucose Calcium Phosphorus Magnesium Total Creatine Kinase CK-MB (CK-2) Rel Index Troponin T C-Reactive Protein Total Protein Albumin LDL Cholesterol Direct Urine WBC (Auto) 04/15/22 04/15/22 04/16/22 04:44 04:44 04:16 WBC 13.0 H 12.6 H RBC 3.19 L 3.09 L Hgb 9.6 L 9.5 L Hct 30.2 L 29.1 L MCV 95 H Plt Count 456 H Lymph % (Auto) [place] % (Auto) Lymph # (Auto) [place] # (Auto) Seg Neutrophils % Seg Neuts % (Manual) Lymphocytes % (Manual) Seg Neutrophils # Seg Neutrophils # Man Lymphocytes # (Manual) PT INR ABG pH ABG pO2 ABG HCO3 ABG O2 Saturation ABG Base Excess ABG Hemoglobin Oxyhemoglobin Sodium Potassium Chloride 95.5 L Carbon Dioxide 37 H BUN Creatinine < 0.2 L Glucose POC Glucose Calcium Phosphorus Magnesium Total Creatine Kinase CK-MB (CK-2) Rel Index Troponin T C-Reactive Protein Total Protein Albumin LDL Cholesterol Direct Urine WBC (Auto) 04/16/22 04/16/22 04/16/22 04:16 05:00 14:00 WBC RBC Hgb Hct MCV Plt Count Lymph % (Auto) [place] % (Auto) Lymph # (Auto) [place] # (Auto) Seg Neutrophils % Seg Neuts % (Manual) Lymphocytes % (Manual) Seg Neutrophils # Seg Neutrophils # Man Lymphocytes # (Manual) PT INR ABG pH 7.324 L ABG pO2 55.6 L ABG HCO3 45.3 H ABG O2 Saturation 87.1 L ABG Base Excess 16.6 H ABG Hemoglobin 8.6 L Oxyhemoglobin 85.7 L Sodium Potassium Chloride 97.6 L Carbon Dioxide 36 H BUN Creatinine < 0.2 L Glucose 109 H POC Glucose 120 H Calcium Phosphorus Magnesium Total Creatine Kinase CK-MB (CK-2) Rel Index Troponin T C-Reactive Protein Total Protein Albumin LDL Cholesterol Direct Urine WBC (Auto) 04/17/22 04/17/22 04/17/22 04:36 04:36 04:57 WBC 14.4 H RBC 3.08 L Hgb 9.4 L Hct 29.0 L MCV Plt Count Lymph % (Auto) [place] % (Auto) Lymph # (Auto) [place] # (Auto) Seg Neutrophils % Seg Neuts % (Manual) Lymphocytes % (Manual) Seg Neutrophils # Seg Neutrophils # Man Lymphocytes # (Manual) PT INR ABG pH ABG pO2 ABG HCO3 ABG O2 Saturation ABG Base Excess ABG Hemoglobin Oxyhemoglobin Sodium Potassium Chloride 95.9 L Carbon Dioxide 39 H BUN Creatinine < 0.2 L Glucose 140 H POC Glucose 137 H Calcium 8.3 L Phosphorus Magnesium Total Creatine Kinase CK-MB (CK-2) Rel Index Troponin T C-Reactive Protein Total Protein Albumin LDL Cholesterol Direct Urine WBC (Auto) 04/17/22 04/17/22 04/18/22 09:15 18:01 04:20 WBC 11.2 H RBC 3.00 L Hgb 9.3 L Hct 28.6 L MCV 95 H Plt Count Lymph % (Auto) [place] % (Auto) Lymph # (Auto) [place] # (Auto) Seg Neutrophils % Seg Neuts % (Manual) Lymphocytes % (Manual) Seg Neutrophils # Seg Neutrophils # Man Lymphocytes # (Manual) PT INR ABG pH 7.345 L ABG pO2 ABG HCO3 48.2 H ABG O2 Saturation ABG Base Excess 19.2 H ABG Hemoglobin 9.7 L Oxyhemoglobin Sodium Potassium Chloride Carbon Dioxide BUN Creatinine Glucose POC Glucose 129 H Calcium Phosphorus Magnesium Total Creatine Kinase CK-MB (CK-2) Rel Index Troponin T C-Reactive Protein Total Protein Albumin LDL Cholesterol Direct Urine WBC (Auto) 04/18/22 04/18/22 04/18/22 04:20 17:35 23:50 WBC RBC Hgb Hct MCV Plt Count Lymph % (Auto) [place] % (Auto) Lymph # (Auto) [place] # (Auto) Seg Neutrophils % Seg Neuts % (Manual) Lymphocytes % (Manual) Seg Neutrophils # Seg Neutrophils # Man Lymphocytes # (Manual) PT INR ABG pH ABG pO2 ABG HCO3 ABG O2 Saturation ABG Base Excess ABG Hemoglobin Oxyhemoglobin Sodium Potassium Chloride 96.8 L Carbon Dioxide 43 H* BUN 22 H Creatinine < 0.2 L Glucose 137 H POC Glucose 128 H 123 H Calcium 8.2 L Phosphorus Magnesium Total Creatine Kinase CK-MB (CK-2) Rel Index Troponin T C-Reactive Protein Total Protein Albumin LDL Cholesterol Direct Urine WBC (Auto) 04/19/22 04/19/22 04/19/22 04:08 04:08 08:50 WBC 16.8 H RBC 3.18 L Hgb 9.8 L Hct 30.1 L MCV 95 H Plt Count Lymph % (Auto) [place] % (Auto) Lymph # (Auto) [place] # (Auto) Seg Neutrophils % Seg Neuts % (Manual) Lymphocytes % (Manual) Seg Neutrophils # Seg Neutrophils # Man Lymphocytes # (Manual) PT INR ABG pH ABG pO2 56.0 L ABG HCO3 47.1 H ABG O2 Saturation 93.3 L ABG Base Excess 20.1 H ABG Hemoglobin 8.0 L Oxyhemoglobin 91.8 L Sodium Potassium Chloride 96.2 L Carbon Dioxide 40 H BUN 24 H Creatinine < 0.2 L Glucose 125 H POC Glucose Calcium 8.3 L Phosphorus Magnesium Total Creatine Kinase CK-MB (CK-2) Rel Index Troponin T C-Reactive Protein Total Protein Albumin LDL Cholesterol Direct Urine WBC (Auto) 04/19/22 04/20/22 04/20/22 12:02 00:40 04:49 WBC 14.7 H RBC 3.36 L Hgb 10.3 L Hct 32.0 L MCV 95 H Plt Count Lymph % (Auto) [place] % (Auto) Lymph # (Auto) [place] # (Auto) Seg Neutrophils % Seg Neuts % (Manual) Lymphocytes % (Manual) Seg Neutrophils # Seg Neutrophils # Man Lymphocytes # (Manual) PT INR ABG pH ABG pO2 ABG HCO3 ABG O2 Saturation ABG Base Excess ABG Hemoglobin Oxyhemoglobin Sodium Potassium Chloride Carbon Dioxide BUN Creatinine Glucose POC Glucose 124 H 140 H Calcium Phosphorus Magnesium Total Creatine Kinase CK-MB (CK-2) Rel Index Troponin T C-Reactive Protein Total Protein Albumin LDL Cholesterol Direct Urine WBC (Auto) 04/20/22 04/20/22 04/21/22 05:36 11:40 04:05 WBC RBC Hgb Hct MCV Plt Count Lymph % (Auto) [place] % (Auto) Lymph # (Auto) [place] # (Auto) Seg Neutrophils % Seg Neuts % (Manual) Lymphocytes % (Manual) Seg Neutrophils # Seg Neutrophils # Man Lymphocytes # (Manual) PT INR ABG pH ABG pO2 ABG HCO3 ABG O2 Saturation ABG Base Excess ABG Hemoglobin Oxyhemoglobin Sodium Potassium Chloride 93.4 L Carbon Dioxide 40 H BUN 25 H Creatinine < 0.2 L Glucose 122 H POC Glucose 125 H 128 H Calcium Phosphorus Magnesium Total Creatine Kinase CK-MB (CK-2) Rel Index Troponin T C-Reactive Protein Total Protein Albumin LDL Cholesterol Direct Urine WBC (Auto) 04/21/22 04/22/22 04/22/22 10:31 05:03 05:03 WBC 12.6 H 12.7 H RBC 2.83 L 2.96 L Hgb 8.6 L 9.0 L Hct 26.9 L 28.0 L MCV 95 H 95 H Plt Count Lymph % (Auto) [place] % (Auto) Lymph # (Auto) [place] # (Auto) Seg Neutrophils % Seg Neuts % (Manual) Lymphocytes % (Manual) Seg Neutrophils # Seg Neutrophils # Man Lymphocytes # (Manual) PT INR ABG pH ABG pO2 ABG HCO3 ABG O2 Saturation ABG Base Excess ABG Hemoglobin Oxyhemoglobin Sodium Potassium Chloride 93.9 L Carbon Dioxide 43 H* BUN 23 H Creatinine < 0.2 L Glucose 137 H POC Glucose Calcium Phosphorus Magnesium Total Creatine Kinase CK-MB (CK-2) Rel Index Troponin T C-Reactive Protein Total Protein Albumin LDL Cholesterol Direct Urine WBC (Auto) 04/22/22 04/23/22 04/24/22 08:34 09:40 04:29 WBC 14.4 H RBC 2.74 L Hgb 8.4 L Hct 25.7 L MCV Plt Count Lymph % (Auto) [place] % (Auto) Lymph # (Auto) [place] # (Auto) Seg Neutrophils % Seg Neuts % (Manual) Lymphocytes % (Manual) Seg Neutrophils # Seg Neutrophils # Man Lymphocytes # (Manual) PT INR ABG pH ABG pO2 54.1 L 56.8 L ABG HCO3 48.5 H 49.0 H ABG O2 Saturation 92.1 L 90.9 L ABG Base Excess 20.9 H 20.8 H ABG Hemoglobin 9.0 L 8.4 L Oxyhemoglobin 90.6 L 89.5 L Sodium Potassium Chloride Carbon Dioxide BUN Creatinine Glucose POC Glucose Calcium Phosphorus Magnesium Total Creatine Kinase CK-MB (CK-2) Rel Index Troponin T C-Reactive Protein Total Protein Albumin LDL Cholesterol Direct Urine WBC (Auto) 04/24/22 04/25/22 04/26/22 04:29 09:00 04:22 WBC RBC 2.88 L Hgb 8.9 L Hct 26.8 L MCV Plt Count Lymph % (Auto) [place] % (Auto) Lymph # (Auto) [place] # (Auto) Seg Neutrophils % Seg Neuts % (Manual) Lymphocytes % (Manual) Seg Neutrophils # Seg Neutrophils # Man Lymphocytes # (Manual) PT INR ABG pH 7.457 H ABG pO2 66.7 L ABG HCO3 42.6 H ABG O2 Saturation ABG Base Excess 15.3 H ABG Hemoglobin 8.8 L Oxyhemoglobin 94.1 L Sodium Potassium Chloride 90.7 L Carbon Dioxide 40 H BUN Creatinine < 0.2 L Glucose 133 H POC Glucose Calcium Phosphorus Magnesium Total Creatine Kinase CK-MB (CK-2) Rel Index Troponin T C-Reactive Protein Total Protein Albumin LDL Cholesterol Direct Urine WBC (Auto) 04/26/22 04/29/22 04/29/22 04:22 04:18 04:18 WBC 13.5 H RBC 2.96 L Hgb 8.9 L Hct 27.7 L MCV Plt Count Lymph % (Auto) [place] % (Auto) Lymph # (Auto) [place] # (Auto) Seg Neutrophils % Seg Neuts % (Manual) Lymphocytes % (Manual) Seg Neutrophils # Seg Neutrophils # Man Lymphocytes # (Manual) PT INR ABG pH ABG pO2 ABG HCO3 ABG O2 Saturation ABG Base Excess ABG Hemoglobin Oxyhemoglobin Sodium Potassium Chloride 93.2 L 95.2 L Carbon Dioxide 37 H 38 H BUN Creatinine < 0.2 L < 0.2 L Glucose 114 H 116 H POC Glucose Calcium Phosphorus Magnesium Total Creatine Kinase CK-MB (CK-2) Rel Index Troponin T C-Reactive Protein Total Protein Albumin LDL Cholesterol Direct Urine WBC (Auto) Allied health notes reviewed: RT
--- NOTE | 2022-05-01 11:32 | Progress Note ---
<ALEK SMITH - Last Filed: 05/01/22 18:24> Assessment and Plan Assessment and plan: This is a 57-year-old male with known history of ALS, recently hospitalized at [facility] admitted for acute hypoxemic respiratory failure 2/2 pneumonia Hospital Course to Date: 04/03: Intubated and Sedated on versed gtt, RASS-5. CT head/brain noted with no acute intracranial abnormality. Plan to initiated precededx gtt and wean off versed for a RASS goal of 0 to -2. CT chect also reviewed, findings are most consistent with acute bronchopneumonia. Continue empiric IV Abx, vent adjustment per CCM. ID consulted. Continue to F/U on cultures. Titrate pressor for MAP above 65. Medical records requested from [facility]. 04/04: Remains stable on the vent, easily arousable on precedex gtt, not following commands. Plan for SAT/SBT today. PRN analgesia for CPOT greater than 3. Fevers improved, cultures and procal pending. Continue current IV abx, ID also consulted. Remains on low dose pressors, titrate pressors for a MAP above 65. 04/05: Long discussion with family with use of translation phone with CCM regarding goals of care. Family to have meeting amongst themselves and informed care team of decisions. Fentanyl drip added for respiratory distress. Remains on Precedex drip. Antibiotics per ID. Given 2L NS bolus with levophed gtt 04/06: Family discussion with Dr. Grayson for goals of care. CXR shows possible mucus plug, continue CPT as FiO2 is being able to be weaned. Potassium repleted. Weaning fentnyl gtt. 04/07: Ultrasound guided thoracentesis today scheduled, inadequate amount of pleural effusion on so not completed. Patient was started on Levophed overnight which was weaned off this morning however had to be started twice a day. Remains on fentanyl and Precedex. Cardiology discontinued BB and ACEi in setting of hypotension. 04/08: COVID-19 PCR negative. Routine EEG ordered by cardiology which showed ST changes, cardiology aware. They will continue conservative treatment. Repeat troponins 0.030 which are less than admit of 0.048. Dr. Grayson had a long discu ssion with with the use of court interpreter today at bedside and has not made a decision regarding goals of care. Possible consult to surgery for trach/PEG early next week. Continues to require Precedex and fentanyl drip for sedation. Carvedilol/lisinopril discontinued as patient is continuously on Levophed. 04/09: No acute events reported overnight, remains on fentanyl, Precedex and Levophed drips. Dr. Grayson and Dr. Pineda updated family at bedside extensively today. Consulted surgery for trach/PEG. COVID-19 PCR negative. 04/10: Patient noted to have desaturation episodes, FiO2 increased slightly to 35%. Will add Mucomyst. Remains on fentanyl and Precedex. Off of Levophed. Surgery consulted for trach/PEG. 04/11: FiO2 increased over night likely related to hypoxia, continues on fent gtt, weaning precedex gtt as he is also on Seroquel. Will d/w CCM re scheduled or prn oxycodone 04/12: Periods of hypoxia and tachycardia this am. Symptoms improved post deep suction and tracheal lavage, Repeat CXR noted with no significant change. Continue CPT and mucomyst. Plan for possible trach/PEG tomorrow by general surgery. 04/13: Remains stable on the vent. Patient is wake and tracking but does not follow simple commands. No report of hypoxia from overnight, continue CPT and mucomyst. Plan for track and PEG today by General Surgery. Plan for LTAC placement post procedure, case management to arrange. 04/14: VIRGILIO overnight, Trach and PEG postponed for today by general surgery. Plan for LTAC placement post procedure, case management to arrange. 04/15: S/p Trach and PEG. Up to 80% FiO2 this am, this am CXR noted suggesting possible mucus plug. D/W [facility] plan for bronch today. Continue CPT and mucomyst. Plan of care thoroughly discussed with patient's and son (who translated for ) at the bedside. Per , application defense manager had already discussed the risks and benefits of the procedure yesterday. She verbalized understanding and agreed with procedure and current care plan, consent signed. Okay to use PEG-tube for meds this am, resume TF once okay by general Surgery. Case management to arrange LTAC placement. 04/16: s/p Bronchocopy by [facility]. FiO2 down to 60%, angela 10 this am. This am CXR with moderate improvement. Continue CPT and mucomyst, wean Fio2 as tolerated for SPO2 above 92%. Patient is tolerating TF, advance to goal as ordered. Possible LTAC placement, case management to arrange. 04/17: VIRGILIO overnight. remains stable on the vent, recent CXR and this am ABG n oted. Continue CPT and mucomyst, wean Fio2 as tolerated. 04/18: Remains stable on the vent, Fio2 down to 55% and peep of 8 this am. Continue to wean as tolerated, CPT, and mucomyst. Dsiposition- LTAC placement, case management to arrange. 04/19: No acute events overnight. Continue current management. 04/20: No acute events overnight, continue current management 04/21: Patient had chest ultrasound which showed trace pleural effusions, chest x-ray improved after the addition of Mucomyst yesterday. FiO2 55-65%. No acute events overnight. more interactive today. 04/22: Seroquel changed to BID, FiO2 was increased to 60%. RT increased FIO2 to 100 d/t desaturation into the 80s but was able to wean down. CCM increased PEEP and decreased FiO2. 04/23: CCM increase PEEP, no acute events reported overnight. 04/24: Spoke to RT about decreasing FiO2 as tolerated. No acute events reported overnight. Continue supportive management. 04/25: Weaning as tolerated. no acute events overnight. RT to attempt CPAP again today 04/26: VIRGILIO overnight. Patient failed PSV trial again this morning. Continue s upportive management and daily PST trial. 04/27: Patient failed PSV trial again this am due to episodes of apnea. Continue daily PSV trial as tolerated. Case management to arrange LTAC placement 04/28: Remains stable. Continue daily PSV trial as tolerated. Awaiting approval for LTAC 04/29: VIRGILIO overnight. Continue daily PSV trial. Awaiting approval for LTAC, case management to arrange. 04/30: Patient continue to fail PSV trial. Per case management patient was denied for LTAC, now possible SNF placement. Case managemen to arrange. Continue supportive measures and daily PSV trial as tolerated. 05/01: VIRGILIO overnight. Continue supportive measures and daily PSV trial as tolerated. Possible SNF placement. Assessment and Plan #Acute Hypoxemic Respiratory Failure 12/09 #Acute Bronchopneumonia - Intubated in the ED on 04/02 for hypoxemia and airway protection - 04/14 s/p Trach and PEG - 04/15 CXR reviewed complete opacity of the righ side suggesting possible mucus plug. See report for detail - 04/15 s/p Bronchoscopy by [facility] - Vent setting: PRVC-40%,10,14,400 - No ABG this am - CCM consulted, appreciate recommendations - Patient failed PST trial again today due to episodes of apnea - Continue daily PSVT as tolerated - Continue CPT and mucomyst per [facility] - VAP bundle addressed - Aspiration precaution HOB above 30 - PRN ABG and CXR per CCM - Continue SPO2 monitoring for SPO2 goal above 92% #Sepsis #Acute Bronchopneumonia #HCAP #Leukocytosis - CXR shows moderate to large layering effusion on the right, see report for full detail - CT chest also reviewed, findings are most consistent with acute bronchopneumonia. See report for full detail - Patient was recent hospitalized for pneumonia - Patient remains afebrile - Tracheal aspirate with Pseudomonas aeruginosa, Enterobacter aerogenes - 04/02 blood culture with bacillus species, 04/05 blood culture NGTD - Patient completed [id number] of Cefepine - CRP 31.6, procalcitonin 0.08 - MRSA negative - Daily CBC monitor - ID signed off #Suspect ischemic coronary artery disease #h/o cardiomyopathy - Low BP probably due to hypovolemia vs sedation vs infectious process - s/p Levophed gtt - Elevated troponin possibly a type II troponin leak - Cardiology consulted, appreciated recommendations - Echocardiogram shows ejection fraction of 40 to 45%, mild global hypokinesis of left ventricle - Continue BB - Continue blood pressure monitor per protocol - Maintain MAP above 65 - On heparin SubQ #H/o Amyotrophic Lateral Sclerosis #Acute Metabolic Encephalopathy-resolved #Nonverbal at Baseline - Presented with AMS, per family patient is nonverbal at baseline but responsive - CT head/Brain with no acute intracranial process - Off sedation. Awake and calm - Continue Seroquel per [facility] - Avoid benzodiazepine to reduce the possibility of delirium - PRN analgesia for CPOT greater than 3 - Maintenance of sleep-wake cycle #Thrombocytopenia-resolved - Continue to trend plt - On heparin subQ - Monitor for s/s of any active bleeding #Hypernatremia-resolved - Monitor and replace electrolytes as needed - Continue to trend BMP #Protein Caloric Malnutrition - Albumin 2.7, Total protein 4.6 - 04/15 s/p EPG-Tube placement - Continue enteral nutrition - Nutrition consulted #Constipation - Noted on CXR and KUB - last BM 04/27 - Continue BR #GI/DVT Prophylaxis - PPI- Pepcid - Heparin SubQ - SCDs to bilateral lower extremities while in bed #Advance Care Planning - Disease education data, care plan, diagnoses, and prognosis were discussed patient's , Carly Lopez, and patient daughter, Kaylee Warren, who translated for #[phone]. They reported that patient was following at [facility] for his ALS and during recent hospitalization at [facility] they were told nothing else can be offered to patient at this time and patient was discharge home with home hospice and PO morphine. First hospice visit was on , however, patient became unresponsive yesterday and they brought in to the hospital. - Goal of care and code status were also addressed at that time. Family wants to wait for a couple days to see how patient respond to current treatment before making a decision. All questions and concerns were addressed at this time. Patient family acknowledged understanding and agreement with care plan. - Patient remains a FULL CODE status -04/05: Discussion at bedside with interpreting service with Dr. Valdivia and family state they would discuss next steps amongst themselves and let healthcare team know of decisions -04/06: extensive discussion with family ( and son) with Dr. Grayson regarding goals of care -04/08: Extensive discussion with with the use of court interpreter line regarding goals of care; no decision made. Possible consult to surgery for trach/PEG early next week. -04/09: Discussion with and her sister with Dr. Grayson and then with Dr. Pineda-> Consulted surgery for trach/peg -04/30 Insurance Denied LTAC, plan for possible SNF placemenet now. Case management to arrange The high probability of a clinically significant, sudden or life threatening deterioration of the [multiple] system(s) required my full and direct attention, intervention and personal management. The aggregate critical care time was [60] minutes. This time is in addition to time spent performing reported procedures but includes the following: [x] Data Review and interpretation [x] Patient assessment and monitoring of vital signs [x] Documentation [x] Medication orders and management Disposition Plan: ICU Total Time Spent with Patient (Minutes): 60 History Interval history: Patient seen and examined at the bedside. Stable on the vent, awake and tracking, following simple commands, VSS. VIRGILIO overnight Hospitalist Physical - Physical exam Narrative exam: General appearance: Present: no acute distress, cachectic, other (Trach and on the vent.Awake and tracking, following simple commands) - EENT Eyes: Present: PERRL - Neck Neck: Present: normal ROM - Respiratory Respiratory effort: normal Respiratory: bilateral: rhonchi - Cardiovascular Rhythm: regular Heart Sounds: Present: S1 & S2 - Extremities Extremities: no ischemia, pulses intact, pulses symmetrical Peripheral Pulses: within normal limits - Abdominal General gastrointestinal: soft, non-distended, normal bowel sounds - Integumentary Integumentary: Present: warm, dry - Psychiatric Psychiatric: other (Trach and on the vent. Awake and tracking, following simple commands) - Neurologic Neurologic: other (Trach and on the vent. Awake and tracking, following simple commands) - Allied Health Allied health notes reviewed: nursing, case management - Constitutional Vitals: Temp Pulse Resp BP Pulse Ox 98.9 F 106 H 17 110/65 94 05/01/22 08:00 05/01/22 09:35 05/01/22 08:00 05/01/22 09:35 05/01/22 09:35 HEART Score - HEART Score Troponin: Troponin T 0.031 ng/mL (0.00-0.029) H 04/08/22 17:47 Results - Labs CBC & Chem 7: 04/29/22 04:18 04/29/22 04:18 Labs: Laboratory Last Values WBC 13.5 K/mm3 (4.5-11.0) H 04/29/22 04:18 RBC 2.96 M/mm3 (3.65-5.03) L 04/29/22 04:18 Hgb 8.9 gm/dl (11.8-15.2) L 04/29/22 04:18 Hct 27.7 % (35.5-45.6) L 04/29/22 04:18 MCV 94 fl (84-94) 04/29/22 04:18 MCH 30 pg (28-32) 04/29/22 04:18 MCHC 32 % (32-34) 04/29/22 04:18 RDW 14.0 % (13.2-15.2) 04/29/22 04:18 Plt Count 348 K/mm3 (140-440) 04/29/22 04:18 Lymph % (Auto) 4.3 % (13.4-35.0) L 04/07/22 03:51 [place] % (Auto) 8.8 % (0.0-7.3) H 04/07/22 03:51 Eos % (Auto) 0.1 % (0.0-4.3) 04/07/22 03:51 Baso % (Auto) 0.2 % (0.0-1.8) 04/07/22 03:51 Lymph # (Auto) 0.6 K/mm3 (1.2-5.4) L 04/07/22 03:51 [place] # (Auto) 1.3 K/mm3 (0.0-0.8) H 04/07/22 03:51 Eos # (Auto) 0.0 K/mm3 (0.0-0.4) 04/07/22 03:51 Baso # (Auto) 0.0 K/mm3 (0.0-0.1) 04/07/22 03:51 Add Manual Diff Complete 04/02/22 19:39 Total Counted 100 04/02/22 19:39 Seg Neutrophils % 86.6 % (40.0-70.0) H 04/07/22 03:51 Seg Neuts % (Manual) 94.0 % (40.0-70.0) H 04/02/22 19:39 Band Neutrophils % 0 % 04/02/22 19:39 Lymphocytes % (Manual) 1.0 % (13.4-35.0) L 04/02/22 19:39 Reactive Lymphs % (Man) 0 % 04/02/22 19:39 Monocytes % (Manual) 5.0 % (0.0-7.3) 04/02/22 19:39 Eosinophils % (Manual) 0 % (0.0-4.3) 04/02/22 19:39 Basophils % (Manual) 0 % (0.0-1.8) 04/02/22 19:39 Metamyelocytes % 0 % 04/02/22 19:39 Myelocytes % 0 % 04/02/22 19:39 Promyelocytes % 0 % 04/02/22 19:39 Blast Cells % 0 % 04/02/22 19:39 Nucleated RBC % Not Reportable 04/02/22 19:39 Seg Neutrophils # 12.7 K/mm3 (1.8-7.7) H 04/07/22 03:51 Seg Neutrophils # Man 13.4 K/mm3 (1.8-7.7) H 04/02/22 19:39 Band Neutrophils # 0.0 K/mm3 04/02/22 19:39 Lymphocytes # (Manual) 0.1 K/mm3 (1.2-5.4) L 04/02/22 19:39 Abs React Lymphs (Man) 0.0 K/mm3 04/02/22 19:39 Monocytes # (Manual) 0.7 K/mm3 (0.0-0.8) 04/02/22 19:39 Eosinophils # (Manual) 0.0 K/mm3 (0.0-0.4) 04/02/22 19:39 Basophils # (Manual) 0.0 K/mm3 (0.0-0.1) 04/02/22 19:39 Metamyelocytes # 0.0 K/mm3 04/02/22 19:39 Myelocytes # 0.0 K/mm3 04/02/22 19:39 Promyelocytes # 0.0 K/mm3 04/02/22 19:39 Blast Cells # 0.0 K/mm3 04/02/22 19:39 WBC Morphology Not Reportable 04/02/22 19:39 Hypersegmented Neuts Not Reportable 04/02/22 19:39 Hyposegmented Neuts Not Reportable 04/02/22 19:39 Hypogranular Neuts Not Reportable 04/02/22 19:39 Smudge Cells Not Reportable 04/02/22 19:39 Toxic Granulation Not Reportable 04/02/22 19:39 Toxic Vacuolation Not Reportable 04/02/22 19:39 Dohle Bodies Not Reportable 04/02/22 19:39 Pelger-Huet Anomaly Not Reportable 04/02/22 19:39 Terry Rods Not Reportable 04/02/22 19:39 Platelet Estimate Consistent w auto 04/02/22 19:39 Clumped Platelets Not Reportable 04/02/22 19:39 Plt Clumps, EDTA Not Reportable 04/02/22 19:39 Large Platelets Not Reportable 04/02/22 19:39 Giant Platelets Not Reportable 04/02/22 19:39 Platelet Satelliting Not Reportable 04/02/22 19:39 Plt Morphology Comment Not Reportable 04/02/22 19:39 RBC Morphology Not Reportable 04/02/22 19:39 Dimorphic RBCs Not Reportable 04/02/22 19:39 Polychromasia Not Reportable 04/02/22 19:39 Hypochromasia Not Reportable 04/02/22 19:39 Poikilocytosis Not Reportable 04/02/22 19:39 Anisocytosis 1+ 04/02/22 19:39 Microcytosis Not Reportable 04/02/22 19:39 Macrocytosis Not Reportable 04/02/22 19:39 Spherocytes Not Reportable 04/02/22 19:39 Pappenheimer Bodies Not Reportable 04/02/22 19:39 Sickle Cells Not Reportable 04/02/22 19:39 Target Cells Not Reportable 04/02/22 19:39 Tear Drop Cells Not Reportable 04/02/22 19:39 Ovalocytes Not Reportable 04/02/22 19:39 Helmet Cells Not Reportable 04/02/22 19:39 Patric[place] Bodies Not Reportable 04/02/22 19:39 [place] Rings Not Reportable 04/02/22 19:39 [place] Cells Not Reportable 04/02/22 19:39 Bite Cells Not Reportable 04/02/22 19:39 Crenated Cell Not Reportable 04/02/22 19:39 Elliptocytes Not Reportable 04/02/22 19:39 Acanthocytes (Spur) Not Reportable 04/02/22 19:39 Rouleaux Not Reportable 04/02/22 19:39 Hemoglobin C Crystals Not Reportable 04/02/22 19:39 Schistocytes Not Reportable 04/02/22 19:39 Malaria parasites Not Reportable 04/02/22 19:39 [place] Bodies Not Reportable 04/02/22 19:39 Hem Pathologist Commnt No 04/02/22 19:39 PT 13.6 Sec. (12.2-14.9) 04/13/22 04:30 INR 0.94 (0.87-1.13) 04/13/22 04:30 APTT 35.7 Sec. (24.2-36.6) 04/07/22 03:51 ABG pH 7.457 pH Units (7.350-7.450) H 04/25/22 09:00 ABG pCO2 61.7 mm Hg 04/25/22 09:00 ABG pO2 66.7 mm Hg (80.0-90.0) L 04/25/22 09:00 ABG HCO3 42.6 mmol/L (20.0-26.0) H 04/25/22 09:00 ABG O2 Saturation 95.7 % (95.0-99.0) 04/25/22 09:00 ABG O2 Content 20.0 (0.0-44) 04/25/22 09:00 ABG Base Excess 15.3 mmol/L (-2.0-3.0) H 04/25/22 09:00 ABG Hemoglobin 8.8 gm/dl (14.0-18.0) L 04/25/22 09:00 ABG Carboxyhemoglobin 1.3 % (0.0-5.0) 04/25/22 09:00 ABG Methemoglobin 0.4 % (0.0-1.5) 04/25/22 09:00 Oxyhemoglobin 94.1 % (95.0-99.0) L 04/25/22 09:00 FiO2 35 % 04/25/22 09:00 Sodium 138 mmol/L (137-145) 04/29/22 04:18 Potassium 4.3 mmol/L (3.6-5.0) 04/29/22 04:18 Chloride 95.2 mmol/L (98-107) L 04/29/22 04:18 Carbon Dioxide 38 mmol/L (22-30) H 04/29/22 04:18 Anion Gap 9 mmol/L 04/29/22 04:18 BUN 19 mg/dL (9-20) 04/29/22 04:18 Creatinine < 0.2 mg/dL (0.8-1.3) L 04/29/22 04:18 Estimated GFR > 60 ml/min 04/29/22 04:18 BUN/Creatinine Ratio 95 % 04/29/22 04:18 Glucose 116 mg/dL (75-100) H 04/29/22 04:18 POC Glucose 128 mg/dL (70-105) H 04/20/22 11:40 Lactic Acid 1.90 mmol/L (0.7-2.0) 04/02/22 19:39 Calcium 8.7 mg/dL (8.4-10.2) 04/29/22 04:18 Phosphorus 3.80 mg/dL (2.5-4.5) 04/29/22 04:18 Magnesium 1.80 mg/dL (1.7-2.3) 04/29/22 04:18 Total Bilirubin 0.80 mg/dL (0.1-1.2) 04/02/22 19:39 AST 15 units/L (5-40) 04/02/22 19:39 ALT 9 units/L (7-56) 04/02/22 19:39 Alkaline Phosphatase 43 units/L (35-129) 04/02/22 19:39 Total Creatine Kinase 46 units/L (55-170) L 04/08/22 17:47 CK-MB (CK-2) 2.6 ng/mL (0.0-4.0) 04/08/22 17:47 CK-MB (CK-2) Rel Index 5.6 (0-4) H 04/08/22 17:47 Troponin T 0.031 ng/mL (0.00-0.029) H 04/08/22 17:47 C-Reactive Protein 31.60 mg/dL (0.00-1.30) H 04/04/22 04:18 Total Protein 4.6 g/dL (6.3-8.2) L 04/02/22 19:39 Albumin 2.7 g/dL (3.9-5) L 04/02/22 19:39 Albumin/Globulin Ratio 1.4 % 04/02/22 19:39 Triglycerides 80 mg/dL (2-149) 04/02/22 19:39 Cholesterol 94 mg/dL (50-199) 04/02/22 19:39 LDL Cholesterol Direct 27 mg/dL (50-130) L 04/02/22 19:39 HDL Cholesterol 47 mg/dL (40-59) 04/02/22 19:39 Cholesterol/HDL Ratio 2.00 % 04/02/22 19:39 Procalcitonin 0.08 ng/mL (<0.15) 04/04/22 04:18 Urine Color Aracely (Yellow) 04/05/22 17:45 Urine Turbidity Cloudy (Clear) 04/05/22 17:45 Urine pH 5.0 (5.0-7.0) 04/05/22 17:45 Ur Specific [place] 1.021 (1.003-1.030) 04/05/22 17:45 Urine Protein 30 mg/dl mg/dL (Negative) 04/05/22 17:45 Urine Glucose (UA) Neg mg/dL (Negative) 04/05/22 17:45 Urine Ketones Tr mg/dL (Negative) 04/05/22 17:45 Urine Blood Sm (Negative) 04/05/22 17:45 Urine Nitrite Neg (Negative) 04/05/22 17:45 Urine Bilirubin Neg (Negative) 04/05/22 17:45 Urine Urobilinogen < 2.0 mg/dL (<2.0) 04/05/22 17:45 Ur Leukocyte Esterase Tr (Negative) 04/05/22 17:45 Urine WBC (Auto) 8.0 /HPF (0.0-6.0) H 04/05/22 17:45 Urine RBC (Auto) 3.0 /HPF (0.0-6.0) 04/05/22 17:45 U Epithel Cells (Auto) 2.0 /HPF (0-13.0) 04/05/22 17:45 Urine Bacteria (Auto) 1+ /HPF (Negative) 04/02/22 Unknown Hyaline Casts 1 /LPF 04/05/22 17:45 Urine Mucus 3+ /HPF 04/05/22 17:45 Nasal Screen MRSA (PCR) Negative (Negative) 04/05/22 12:37 Vancomycin Trough 6.0 ug/mL (5.0-20.0) 04/05/22 18:53 Coronavirus (PCR) Negative (Negative) 04/07/22 14:52 Perez/IV: Voiding Method Condom Catheter Active Medications - Current Medications Current Medications: Generic Name Dose Route Start Last Admin Trade Name Freq PRN Reason Stop Dose Admin Acetaminophen 650 mg 04/02/22 23:53 04/30/22 12:40 Acetaminophen 325 Mg Tab PO 650 mg Q6H PRN Administration Pain MILD(1-3)/Fever >100.5/FAITH Acetylcysteine 200 mg 04/21/22 16:00 05/01/22 09:49 Acetylcysteine 20% 200 Mg/1 Ml *For Inhalation Use* INHALATION 200 mg Q8HRT SEGUNDO Administration Albuterol 2.5 mg 04/06/22 16:00 05/01/22 09:49 Albuterol 2.5 Mg/3 Ml Nebu IH 2.5 mg Q8HRT SEGUNDO Administration Bisacodyl 10 mg 04/07/22 09:44 04/12/22 10:06 Bisacodyl 10 Mg Rect Supp AK 10 mg QDAY PRN Administration Constipation Dextrose 50 ml 04/06/22 17:54 Dextrose 50% In Water (25gm) 50 Ml Syringe IV Q30MIN PRN Hypoglycemia Protocol Docusate Sodium 100 mg 04/28/22 10:00 05/01/22 09:33 Docusate Sodium 100 Mg/10 Ml Oral Liqd FEEDTUBE 100 mg BID SEGUNDO Administration Famotidine 20 mg 04/06/22 10:00 05/01/22 09:33 Famotidine 20 Mg Tab FEEDTUBE 20 mg BID SEGUNDO Administration Fentanyl 50 mcg 04/04/22 15:56 04/29/22 21:40 Fentanyl 100 Mcg/2 Ml Inj IV 50 mcg Q2HR PRN Administration For CPOT of greater than 3 Heparin Sodium (Porcine) 5,000 unit 04/03/22 06:00 05/01/22 06:32 Heparin 5,000 Unit/1 Ml Vial SUB-Q 5,000 unit Q8HR SEGUNDO Administration Insulin Human Regular 0 units 04/06/22 18:00 04/30/22 17:12 Insulin Regular, Human 100 Units/1 Ml SUB-Q Not Given Q6H [facility] Protocol Magnesium Hydroxide 30 ml 04/02/22 23:53 Magnesium Hydroxide (Mom) Oral Liqd Udc PO Q4H PRN Constipation Metoprolol Tartrate 25 mg 04/16/22 18:00 05/01/22 06:32 Metoprolol Tartrate 25 Mg Tab FEEDTUBE 25 mg Q6HR SEGUNDO Administration Ondansetron HCl 4 mg 04/02/22 23:53 Ondansetron 4 Mg/2 Ml Inj IV Q8H PRN Nausea And Vomiting Polyethylene Glycol 17 gm 04/08/22 10:00 05/01/22 09:33 Polyethylene Glycol 3350 17 Gm Powder PO 17 gm QDAY SEGUNDO Administration Quetiapine Fumarate 50 mg 04/28/22 10:00 05/01/22 09:33 Quetiapine 25 Mg Tab FEEDTUBE 50 mg BID SEGUNDO Administration Senna 17.6 mg 04/28/22 10:00 05/01/22 09:33 Sennosides Oral Liqd 8.8 Mg/5 Ml Oral Liqd FEEDTUBE 17.6 mg Q12HR SEGUNDO Administration Sodium Chloride 10 ml 04/03/22 10:00 05/01/22 09:34 Sodium Chloride 0.9% 10 Ml Flush Syringe IV 10 ml BID SEGUNDO Administration Sodium Chloride 10 ml 04/02/22 23:53 Sodium Chloride 0.9% 10 Ml Flush Syringe IV PRN PRN LINE FLUSH Nutrition/Malnutrition Assess - Dietary Evaluation Nutrition/Malnutrition Findings: Nutrition Notes Start: 04/04/22 13:13 Freq: Status: Active Protocol: Document 04/27/22 11:53 COLLEEN (Rec: 04/27/22 12:21 COLLEEN [email or web address]) Nutrition Notes Initial or Follow up Reassessment Current Diagnosis Coronary Artery Disease, Decubitus(Pressure Ulcer), Sepsis,Respiratory Failure, Malnutrition Other Pertinent Diagnosis HCAP, HFpEF, ALS, Pleural Effusion, R-Lung Collapse, .. . Current Diet TF-Vital AF 1.2 Inderjit @ 50 ml/hr (since D 04/15). Labs/Tests 04/27: Cl 93.2, CO2 37, Crea < 0.2, Glu 114. Pertinent Medications 04/27: Nutritionally unremarkable. Height 5 ft 4.8 in Weight 46.8 kg [place] Body Weight (kg) 61.27 BMI 17.2 Weight change and time frame No body weight change reported in 3 weeks. Weight Status Underweight Subjective/Other Information RD consult for routine F/U on TF tolerance/continuation. TF continues as prescribed, and well tolerated, according to RN notes. Pt continues on Mechanical ventilation, O2 saturation @ 96%, according to Physical Assessment Histroy notes. Pt continues to present constipation, according to Physical Assessment Histroy notes. 3 failed attempts to wean Pt from Mechanical Ventilation, Pt is back to previous settings in PRCV, according to RN notes. Pt is pending authorization for LTAC placement, according to Progress notes. Percent of energy/protein needs met: Prescribed TF-Vital AF 1.2 Inderjit @ 50 ml/hr provides for energy/protein needs (1,450 Kcal/91 g) during LOS, 98% Kcal; 100% AA. Burn Absent Trauma Absent GI Symptoms Constipation Difficulty In Swallowing,Chewing Food Allergy No Skin Integrity/Comment Sacral open wound. Current % PO Other Minimum of two criteria No #1 Nutrition Diagnosis Inadequate oral intake Diagnosis Progress(for reassessment Continues documentation) Is patient on ventilator? Yes Is Patient Ambulatory and/or Out of Bed No REE-([facility]-confined to bed) [phone] Calculation Used for Recommendations [facility] Additional Notes Protein: 1.2-2 g/Kg IBW; 73- 122 g/day. Fluids: 1 ml/Kcal, or as per MD. Nutrition Intervention Nutrition Support: Continue TF-Vital AF 1.2 Inderjit @ 50 ml/hr. Flush: 80 ml water Q 4 hr, or as per MD. Kcal 1,450 Protein (gm) 91 Carbohydrates (gm) 134 Fat (gm) 65 Fluid (mL) 980 Fiber (gm) 6 % RDI: 98% Kcal; 100% AA. Goal #1 Provide at least 75% of energy /protein needs through Enteral Feeding during LOS. Follow-Up By: 05/04/22 Additional Comments Continue monitoring TF tolerance and BM. <DIXIE BROWN - Last Filed: 05/01/22 20:05> Assessment and Plan Assessment and plan: I saw and evaluated the patient. I agree with the findings and the plan of care as documented in the Nurse Practitioner's~note, with the following corrections and additions. Hospitalist Physical - Constitutional Vitals: Temp Pulse Resp BP Pulse Ox 99 F 114 H 14 121/71 93 05/01/22 16:00 05/01/22 18:00 05/01/22 18:00 05/01/22 18:00 05/01/22 18:00 HEART Score - HEART Score Troponin: Troponin T 0.031 ng/mL (0.00-0.029) H 04/08/22 17:47 Results - Labs CBC & Chem 7: 04/29/22 04:18 04/29/22 04:18 Labs: Laboratory Last Values WBC 13.5 K/mm3 (4.5-11.0) H 04/29/22 04:18 RBC 2.96 M/mm3 (3.65-5.03) L 04/29/22 04:18 Hgb 8.9 gm/dl (11.8-15.2) L 04/29/22 04:18 Hct 27.7 % (35.5-45.6) L 04/29/22 04:18 MCV 94 fl (84-94) 04/29/22 04:18 MCH 30 pg (28-32) 04/29/22 04:18 MCHC 32 % (32-34) 04/29/22 04:18 RDW 14.0 % (13.2-15.2) 04/29/22 04:18 Plt Count 348 K/mm3 (140-440) 04/29/22 04:18 Lymph % (Auto) 4.3 % (13.4-35.0) L 04/07/22 03:51 [place] % (Auto) 8.8 % (0.0-7.3) H 04/07/22 03:51 Eos % (Auto) 0.1 % (0.0-4.3) 04/07/22 03:51 Baso % (Auto) 0.2 % (0.0-1.8) 04/07/22 03:51 Lymph # (Auto) 0.6 K/mm3 (1.2-5.4) L 04/07/22 03:51 [place] # (Auto) 1.3 K/mm3 (0.0-0.8) H 04/07/22 03:51 Eos # (Auto) 0.0 K/mm3 (0.0-0.4) 04/07/22 03:51 Baso # (Auto) 0.0 K/mm3 (0.0-0.1) 04/07/22 03:51 Add Manual Diff Complete 04/02/22 19:39 Total Counted 100 04/02/22 19:39 Seg Neutrophils % 86.6 % (40.0-70.0) H 04/07/22 03:51 Seg Neuts % (Manual) 94.0 % (40.0-70.0) H 04/02/22 19:39 Band Neutrophils % 0 % 04/02/22 19:39 Lymphocytes % (Manual) 1.0 % (13.4-35.0) L 04/02/22 19:39 Reactive Lymphs % (Man) 0 % 04/02/22 19:39 Monocytes % (Manual) 5.0 % (0.0-7.3) 04/02/22 19:39 Eosinophils % (Manual) 0 % (0.0-4.3) 04/02/22 19:39 Basophils % (Manual) 0 % (0.0-1.8) 04/02/22 19:39 Metamyelocytes % 0 % 04/02/22 19:39 Myelocytes % 0 % 04/02/22 19:39 Promyelocytes % 0 % 04/02/22 19:39 Blast Cells % 0 % 04/02/22 19:39 Nucleated RBC % Not Reportable 04/02/22 19:39 Seg Neutrophils # 12.7 K/mm3 (1.8-7.7) H 04/07/22 03:51 Seg Neutrophils # Man 13.4 K/mm3 (1.8-7.7) H 04/02/22 19:39 Band Neutrophils # 0.0 K/mm3 04/02/22 19:39 Lymphocytes # (Manual) 0.1 K/mm3 (1.2-5.4) L 04/02/22 19:39 Abs React Lymphs (Man) 0.0 K/mm3 04/02/22 19:39 Monocytes # (Manual) 0.7 K/mm3 (0.0-0.8) 04/02/22 19:39 Eosinophils # (Manual) 0.0 K/mm3 (0.0-0.4) 04/02/22 19:39 Basophils # (Manual) 0.0 K/mm3 (0.0-0.1) 04/02/22 19:39 Metamyelocytes # 0.0 K/mm3 04/02/22 19:39 Myelocytes # 0.0 K/mm3 04/02/22 19:39 Promyelocytes # 0.0 K/mm3 04/02/22 19:39 Blast Cells # 0.0 K/mm3 04/02/22 19:39 WBC Morphology Not Reportable 04/02/22 19:39 Hypersegmented Neuts Not Reportable 04/02/22 19:39 Hyposegmented Neuts Not Reportable 04/02/22 19:39 Hypogranular Neuts Not Reportable 04/02/22 19:39 Smudge Cells Not Reportable 04/02/22 19:39 Toxic Granulation Not Reportable 04/02/22 19:39 Toxic Vacuolation Not Reportable 04/02/22 19:39 Dohle Bodies Not Reportable 04/02/22 19:39 Pelger-Huet Anomaly Not Reportable 04/02/22 19:39 Terry Rods Not Reportable 04/02/22 19:39 Platelet Estimate Consistent w auto 04/02/22 19:39 Clumped Platelets Not Reportable 04/02/22 19:39 Plt Clumps, EDTA Not Reportable 04/02/22 19:39 Large Platelets Not Reportable 04/02/22 19:39 Giant Platelets Not Reportable 04/02/22 19:39 Platelet Satelliting Not Reportable 04/02/22 19:39 Plt Morphology Comment Not Reportable 04/02/22 19:39 RBC Morphology Not Reportable 04/02/22 19:39 Dimorphic RBCs Not Reportable 04/02/22 19:39 Polychromasia Not Reportable 04/02/22 19:39 Hypochromasia Not Reportable 04/02/22 19:39 Poikilocytosis Not Reportable 04/02/22 19:39 Anisocytosis 1+ 04/02/22 19:39 Microcytosis Not Reportable 04/02/22 19:39 Macrocytosis Not Reportable 04/02/22 19:39 Spherocytes Not Reportable 04/02/22 19:39 Pappenheimer Bodies Not Reportable 04/02/22 19:39 Sickle Cells Not Reportable 04/02/22 19:39 Target Cells Not Reportable 04/02/22 19:39 Tear Drop Cells Not Reportable 04/02/22 19:39 Ovalocytes Not Reportable 04/02/22 19:39 Helmet Cells Not Reportable 04/02/22 19:39 [place] Bodies Not Reportable 04/02/22 19:39 [place] Rings Not Reportable 04/02/22 19:39 [place] Cells Not Reportable 04/02/22 19:39 Bite Cells Not Reportable 04/02/22 19:39 Crenated Cell Not Reportable 04/02/22 19:39 Elliptocytes Not Reportable 04/02/22 19:39 Acanthocytes (Spur) Not Reportable 04/02/22 19:39 Rouleaux Not Reportable 04/02/22 19:39 Hemoglobin C Crystals Not Reportable 04/02/22 19:39 Schistocytes Not Reportable 04/02/22 19:39 Malaria parasites Not Reportable 04/02/22 19:39 [place] Bodies Not Reportable 04/02/22 19:39 Hem Pathologist Commnt No 04/02/22 19:39 PT 13.6 Sec. (12.2-14.9) 04/13/22 04:30 INR 0.94 (0.87-1.13) 04/13/22 04:30 APTT 35.7 Sec. (24.2-36.6) 04/07/22 03:51 ABG pH 7.457 pH Units (7.350-7.450) H 04/25/22 09:00 ABG pCO2 61.7 mm Hg 04/25/22 09:00 ABG pO2 66.7 mm Hg (80.0-90.0) L 04/25/22 09:00 ABG HCO3 42.6 mmol/L (20.0-26.0) H 04/25/22 09:00 ABG O2 Saturation 95.7 % (95.0-99.0) 04/25/22 09:00 ABG O2 Content 20.0 (0.0-44) 04/25/22 09:00 ABG Base Excess 15.3 mmol/L (-2.0-3.0) H 04/25/22 09:00 ABG Hemoglobin 8.8 gm/dl (14.0-18.0) L 04/25/22 09:00 ABG Carboxyhemoglobin 1.3 % (0.0-5.0) 04/25/22 09:00 ABG Methemoglobin 0.4 % (0.0-1.5) 04/25/22 09:00 Oxyhemoglobin 94.1 % (95.0-99.0) L 04/25/22 09:00 FiO2 35 % 04/25/22 09:00 Sodium 138 mmol/L (137-145) 04/29/22 04:18 Potassium 4.3 mmol/L (3.6-5.0) 04/29/22 04:18 Chloride 95.2 mmol/L (98-107) L 04/29/22 04:18 Carbon Dioxide 38 mmol/L (22-30) H 04/29/22 04:18 Anion Gap 9 mmol/L 04/29/22 04:18 BUN 19 mg/dL (9-20) 04/29/22 04:18 Creatinine < 0.2 mg/dL (0.8-1.3) L 04/29/22 04:18 Estimated GFR > 60 ml/min 04/29/22 04:18 BUN/Creatinine Ratio 95 % 04/29/22 04:18 Glucose 116 mg/dL (75-100) H 04/29/22 04:18 POC Glucose 128 mg/dL (70-105) H 04/20/22 11:40 Lactic Acid 1.90 mmol/L (0.7-2.0) 04/02/22 19:39 Calcium 8.7 mg/dL (8.4-10.2) 04/29/22 04:18 Phosphorus 3.80 mg/dL (2.5-4.5) 04/29/22 04:18 Magnesium 1.80 mg/dL (1.7-2.3) 04/29/22 04:18 Total Bilirubin 0.80 mg/dL (0.1-1.2) 04/02/22 19:39 AST 15 units/L (5-40) 04/02/22 19:39 ALT 9 units/L (7-56) 04/02/22 19:39 Alkaline Phosphatase 43 units/L (35-129) 04/02/22 19:39 Total Creatine Kinase 46 units/L (55-170) L 04/08/22 17:47 CK-MB (CK-2) 2.6 ng/mL (0.0-4.0) 04/08/22 17:47 CK-MB (CK-2) Rel Index 5.6 (0-4) H 04/08/22 17:47 Troponin T 0.031 ng/mL (0.00-0.029) H 04/08/22 17:47 C-Reactive Protein 31.60 mg/dL (0.00-1.30) H 04/04/22 04:18 Total Protein 4.6 g/dL (6.3-8.2) L 04/02/22 19:39 Albumin 2.7 g/dL (3.9-5) L 04/02/22 19:39 Albumin/Globulin Ratio 1.4 % 04/02/22 19:39 Triglycerides 80 mg/dL (2-149) 04/02/22 19:39 Cholesterol 94 mg/dL (50-199) 04/02/22 19:39 LDL Cholesterol Direct 27 mg/dL (50-130) L 04/02/22 19:39 HDL Cholesterol 47 mg/dL (40-59) 04/02/22 19:39 Cholesterol/HDL Ratio 2.00 % 04/02/22 19:39 Procalcitonin 0.08 ng/mL (<0.15) 04/04/22 04:18 Urine Color Aracely (Yellow) 04/05/22 17:45 Urine Turbidity Cloudy (Clear) 04/05/22 17:45 Urine pH 5.0 (5.0-7.0) 04/05/22 17:45 Ur Specific [place] 1.021 (1.003-1.030) 04/05/22 17:45 Urine Protein 30 mg/dl mg/dL (Negative) 04/05/22 17:45 Urine Glucose (UA) Neg mg/dL (Negative) 04/05/22 17:45 Urine Ketones Tr mg/dL (Negative) 04/05/22 17:45 Urine Blood Sm (Negative) 04/05/22 17:45 Urine Nitrite Neg (Negative) 04/05/22 17:45 Urine Bilirubin Neg (Negative) 04/05/22 17:45 Urine Urobilinogen < 2.0 mg/dL (<2.0) 04/05/22 17:45 Ur Leukocyte Esterase Tr (Negative) 04/05/22 17:45 Urine WBC (Auto) 8.0 /HPF (0.0-6.0) H 04/05/22 17:45 Urine RBC (Auto) 3.0 /HPF (0.0-6.0) 04/05/22 17:45 U Epithel Cells (Auto) 2.0 /HPF (0-13.0) 04/05/22 17:45 Urine Bacteria (Auto) 1+ /HPF (Negative) 04/02/22 Unknown Hyaline Casts 1 /LPF 04/05/22 17:45 Urine Mucus 3+ /HPF 04/05/22 17:45 Nasal Screen MRSA (PCR) Negative (Negative) 04/05/22 12:37 Vancomycin Trough 6.0 ug/mL (5.0-20.0) 04/05/22 18:53 Coronavirus (PCR) Negative (Negative) 04/07/22 14:52 Perez/IV: Voiding Method Condom Catheter Active Medications - Current Medications Current Medications: Generic Name Dose Route Start Last Admin Trade Name Freq PRN Reason Stop Dose Admin Acetaminophen 650 mg 04/02/22 23:53 04/30/22 12:40 Acetaminophen 325 Mg Tab PO 650 mg Q6H PRN Administration Pain MILD(1-3)/Fever >100.5/FAITH Acetylcysteine 200 mg 04/21/22 16:00 05/01/22 16:55 Acetylcysteine 20% 200 Mg/1 Ml *For Inhalation Use* INHALATION 200 mg Q8HRT SEGUNDO Administration Albuterol 2.5 mg 04/06/22 16:00 05/01/22 16:50 Albuterol 2.5 Mg/3 Ml Nebu IH 2.5 mg Q8HRT SEGUNDO Administration Bisacodyl 10 mg 04/07/22 09:44 04/12/22 10:06 Bisacodyl 10 Mg Rect Supp [place] 10 mg QDAY PRN Administration Constipation Dextrose 50 ml 04/06/22 17:54 Dextrose 50% In Water (25gm) 50 Ml Syringe IV Q30MIN PRN Hypoglycemia Protocol Docusate Sodium 100 mg 04/28/22 10:00 05/01/22 09:33 Docusate Sodium 100 Mg/10 Ml Oral Liqd FEEDTUBE 100 mg BID SEGUNDO Administration Famotidine 20 mg 04/06/22 10:00 05/01/22 09:33 Famotidine 20 Mg Tab FEEDTUBE 20 mg BID SEGUNDO Administration Fentanyl 50 mcg 04/04/22 15:56 04/29/22 21:40 Fentanyl 100 Mcg/2 Ml Inj IV 50 mcg Q2HR PRN Administration For CPOT of greater than 3 Heparin Sodium (Porcine) 5,000 unit 04/03/22 06:00 05/01/22 14:37 Heparin 5,000 Unit/1 Ml Vial SUB-Q 5,000 unit Q8HR SEGUNDO Administration Insulin Human Regular 0 units 04/06/22 18:00 05/01/22 18:00 Insulin Regular, Human 100 Units/1 Ml SUB-Q Not Given Q6H [facility] Protocol Magnesium Hydroxide 30 ml 04/02/22 23:53 Magnesium Hydroxide (Mom) Oral Liqd Udc PO Q4H PRN Constipation Metoprolol Tartrate 25 mg 04/16/22 18:00 05/01/22 18:00 Metoprolol Tartrate 25 Mg Tab FEEDTUBE 25 mg Q6HR SEGUNDO Administration Ondansetron HCl 4 mg 04/02/22 23:53 Ondansetron 4 Mg/2 Ml Inj IV Q8H PRN Nausea And Vomiting Polyethylene Glycol 17 gm 04/08/22 10:00 05/01/22 09:33 Polyethylene Glycol 3350 17 Gm Powder PO 17 gm QDAY SEGUNDO Administration Quetiapine Fumarate 50 mg 04/28/22 10:00 05/01/22 09:33 Quetiapine 25 Mg Tab FEEDTUBE 50 mg BID SEGUNDO Administration Senna 17.6 mg 04/28/22 10:00 05/01/22 09:33 Sennosides Oral Liqd 8.8 Mg/5 Ml Oral Liqd FEEDTUBE 17.6 mg Q12HR SEGUNDO Administration Sodium Chloride 10 ml 04/03/22 10:00 05/01/22 09:34 Sodium Chloride 0.9% 10 Ml Flush Syringe IV 10 ml BID SEGUNDO Administration Sodium Chloride 10 ml 04/02/22 23:53 Sodium Chloride 0.9% 10 Ml Flush Syringe IV PRN PRN LINE FLUSH Nutrition/Malnutrition Assess - Dietary Evaluation Nutrition/Malnutrition Findings: Nutrition Notes Start: 04/04/22 13:13 Freq: Status: Active Protocol: Document 04/27/22 11:53 COLLEEN (Rec: 04/27/22 12:21 COLLEEN [email or web address]) Nutrition Notes Initial or Follow up Reassessment Current Diagnosis Coronary Artery Disease, Decubitus(Pressure Ulcer), Sepsis,Respiratory Failure, Malnutrition Other Pertinent Diagnosis HCAP, HFpEF, ALS, Pleural Effusion, R-Lung Collapse, .. . Current Diet TF-Vital AF 1.2 Inderjit @ 50 ml/hr (since D 04/15). Labs/Tests 04/27: Cl 93.2, CO2 37, Crea < 0.2, Glu 114. Pertinent Medications 04/27: Nutritionally unremarkable. Height 5 ft 4.8 in Weight 46.8 kg [place] Body Weight (kg) 61.27 BMI 17.2 Weight change and time frame No body weight change reported in 3 weeks. Weight Status Underweight Subjective/Other Information RD consult for routine F/U on TF tolerance/continuation. TF continues as prescribed, and well tolerated, according to RN notes. Pt continues on Mechanical ventilation, O2 saturation @ 96%, according to Physical Assessment Histroy notes. Pt continues to present constipation, according to Physical Assessment Histroy notes. 3 failed attempts to wean Pt from Mechanical Ventilation, Pt is back to previous settings in PRCV, according to RN notes. Pt is pending authorization for LTAC placement, according to Progress notes. Percent of energy/protein needs met: Prescribed TF-Vital AF 1.2 Inderjit @ 50 ml/hr provides for energy/protein needs (1,450 Kcal/91 g) during LOS, 98% Kcal; 100% AA. Burn Absent Trauma Absent GI Symptoms Constipation Difficulty In Swallowing,Chewing Food Allergy No Skin Integrity/Comment Sacral open wound. Current % PO Other Minimum of two criteria No #1 Nutrition Diagnosis Inadequate oral intake Diagnosis Progress(for reassessment Continues documentation) Is patient on ventilator? Yes Is Patient Ambulatory and/or Out of Bed No REE-([facility]-confined to bed) [phone] Calculation Used for Recommendations [facility] Additional Notes Protein: 1.2-2 g/Kg IBW; 73- 122 g/day. Fluids: 1 ml/Kcal, or as per MD. Nutrition Intervention Nutrition Support: Continue TF-Vital AF 1.2 Inderjit @ 50 ml/hr. Flush: 80 ml water Q 4 hr, or as per MD. Kcal 1,450 Protein (gm) 91 Carbohydrates (gm) 134 Fat (gm) 65 Fluid (mL) 980 Fiber (gm) 6 % RDI: 98% Kcal; 100% AA. Goal #1 Provide at least 75% of energy /protein needs through Enteral Feeding during LOS. Follow-Up By: 05/04/22 Additional Comments Continue monitoring TF tolerance and BM.
[2022-05-01] MEDS: INSULIN REGULAR, HUMAN 100 UNITS/1 ML SUB-Q SCH ×2 (11:50→18:00)
[2022-05-02] MEDS: ALBUTEROL 2.5 MG/3 ML NEBU IH SCH ×3 (00:06→16:48)
[2022-05-02] MEDS: ACETYLCYSTEINE 20% 200 MG/1 ML *FOR INHALATION USE INHALATION SCH ×3 (00:06→16:48)
[2022-05-02] MEDS: METOPROLOL TARTRATE 25 MG TAB FEEDTUBE SCH ×4 (00:41→17:52)
[2022-05-02 05:01] LABS: Hematocrit 26.2 % (35.5-45.6); Hemoglobin 8.4 gm/dl (11.8-15.2); Mean Corpuscular HGB Conc 32 % (32-34); Mean Corpuscular Volume 93 fl (84-94); Platelet Count 327 K/mm3 (140-440); Red Blood Count 2.82 M/mm3 (3.65-5.03)
[2022-05-02] MEDS: HEPARIN 5,000 UNIT/1 ML VIAL SUB-Q SCH ×3 (06:12→21:02)
[2022-05-02] MEDS: INSULIN REGULAR, HUMAN 100 UNITS/1 ML SUB-Q SCH ×6 (06:14→23:59)
[2022-05-02] MEDS: QUEtiapine 25 MG TAB FEEDTUBE SCH ×2 (09:28→21:03)
[2022-05-02] MEDS: POLYETHYLENE GLYCOL 3350 17 GM POWDER PO SCH (09:28)
[2022-05-02] MEDS: SENNOSIDES ORAL LIQD 8.8 MG/5 ML ORAL LIQD FEEDTUBE SCH ×2 (09:28→21:03)
[2022-05-02] MEDS: DOCUSATE SODIUM 100 MG/10 ML ORAL LIQD FEEDTUBE SCH ×2 (09:28→21:02)
[2022-05-02] MEDS: FAMOTIDINE 20 MG TAB FEEDTUBE SCH ×2 (09:29→21:03)
--- NOTE | 2022-05-02 10:01 | Progress Note ---
Assessment and Plan 1. Community-acquired bronchopneumonia 2. Respiratory failure s/p intubation on mechanical ventilator. 3. Equivocal serum troponin elevation rule out ischemic coronary artery disease 4. Cardiomyopathy unspecified left ventricular ejection fraction 40 to 45% 5. ALS Plan. Clinical status remians unchanged. continue supportive cardiac mangement Subjective Date of service: 05/02/22 Principal diagnosis: Ac and ch hypercapnic and hypoxemic Resp Failure; ALS; HCAP; Sepsis; NSTEMI Interval history: Patient is alert and responsive to questions he is still remains intubated on mechanical ventilator. Objective Vital Signs Temp Pulse Pulse Pulse Pulse Resp Resp 05/02/22 08:15 05/02/22 07:49 109 H 109 H 14 05/02/22 06:12 107 H 05/02/22 06:00 107 H 16 05/02/22 05:00 108 H 14 05/02/22 04:57 108 H 05/02/22 04:00 99.3 F 101 H 107 H 14 05/02/22 03:00 108 H 14 05/02/22 02:00 101 H 15 05/02/22 01:00 103 H 15 05/02/22 00:41 110 H 05/02/22 00:10 92 H 05/02/22 00:00 96.6 F L 93 H 93 H 102 H 14 05/01/22 23:13 100 H 14 05/01/22 23:00 103 H 14 05/01/22 22:00 107 H 14 05/01/22 21:00 109 H 15 05/01/22 20:23 109 H 05/01/22 20:00 100.5 F H 109 H 110 H 14 05/01/22 19:00 103 H 14 05/01/22 18:00 114 H 14 05/01/22 17:11 111 H 05/01/22 17:00 111 H 15 05/01/22 16:50 102 H 94 H 16 05/01/22 16:30 05/01/22 16:00 99 F 105 H 14 05/01/22 15:00 112 H 14 05/01/22 14:00 117 H 14 05/01/22 13:45 119 H 05/01/22 13:00 116 H 16 05/01/22 12:05 05/01/22 12:00 98.3 F 120 H 17 05/01/22 11:00 111 H 16 Resp BP Pulse Ox Pulse Ox 05/02/22 08:15 93 05/02/22 07:49 111/69 94 94 05/02/22 06:12 111/72 05/02/22 06:00 111/72 92 05/02/22 05:00 120/72 95 05/02/22 04:57 120/72 95 05/02/22 04:00 106/69 94 05/02/22 03:00 107/62 91 05/02/22 02:00 111/67 94 05/02/22 01:00 106/60 95 05/02/22 00:41 111/64 05/02/22 00:10 103/61 95 05/02/22 00:00 14 103/61 97 05/01/22 23:13 111/64 94 05/01/22 23:00 111/64 93 05/01/22 22:00 111/71 93 05/01/22 21:00 119/71 89 05/01/22 20:23 117/74 92 05/01/22 20:00 117/74 98 05/01/22 19:00 112/67 93 05/01/22 18:00 121/71 93 05/01/22 17:11 117/70 97 05/01/22 17:00 117/70 96 05/01/22 16:50 16 05/01/22 16:30 97 05/01/22 16:00 106/65 94 05/01/22 15:00 107/67 93 05/01/22 14:00 114/76 86 05/01/22 13:45 115/66 93 05/01/22 13:00 114/67 96 05/01/22 12:05 92 05/01/22 12:00 115/66 97 05/01/22 11:00 107/64 92 - Physical Examination General: Other (On the vent via tracheostomy) HEENT: Positive: PERRL, Normocephaly, Other (ET-tube in place) Neck: Positive: neck supple, trachea midline (intubated). Negative: JVD/HJR Cardiac: Positive: Regular Rate, S1/S2, PMI, Laterally Displaced. Negative: S3, S4 Lungs: Positive: clear to auscultation, No Wheeze, Rales, Rhonchi Neuro: Positive: Weakness (Generalized myopathy, patient with ALS), Other (On the vent via tracheostomy) Abdomen: Positive: Soft Skin: Positive: Clear Extremities: Present: Other (TR.EDEMA). Absent: edema (NO) - Labs and Meds CBC 05/02/22 Range/Units 04:29 WBC 12.9 H (4.5-11.0) K/mm3 RBC 2.82 L (3.65-5.03) M/mm3 Hgb 8.4 L (11.8-15.2) gm/dl Hct 26.2 L (35.5-45.6) % Plt Count 327 (140-440) K/mm3 - Allied health notes Allied health notes reviewed: nursing
--- NOTE | 2022-05-02 10:21 | Progress Note ---
<ALEK SMITH - Last Filed: 05/02/22 16:08> Assessment and Plan Assessment and plan: This is a 57-year-old male with known history of ALS, recently hospitalized at [facility] admitted for acute hypoxemic respiratory failure 2/2 pneumonia Hospital Course to Date: 04/03: Intubated and Sedated on versed gtt, RASS-5. CT head/brain noted with no acute intracranial abnormality. Plan to initiated precededx gtt and wean off versed for a RASS goal of 0 to -2. CT chect also reviewed, findings are most consistent with acute bronchopneumonia. Continue empiric IV Abx, vent adjustment per CCM. ID consulted. Continue to F/U on cultures. Titrate pressor for MAP above 65. Medical records requested from [facility]. 04/04: Remains stable on the vent, easily arousable on precedex gtt, not following commands. Plan for SAT/SBT today. PRN analgesia for CPOT greater than 3. Fevers improved, cultures and procal pending. Continue current IV abx, ID also consulted. Remains on low dose pressors, titrate pressors for a MAP above 65. 04/05: Long discussion with family with use of translation phone with CCM regarding goals of care. Family to have meeting amongst themselves and informed care team of decisions. Fentanyl drip added for respiratory distress. Remains on Precedex drip. Antibiotics per ID. Given 2L NS bolus with levophed gtt 04/06: Family discussion with Dr. Grayson for goals of care. CXR shows possible mucus plug, continue CPT as FiO2 is being able to be weaned. Potassium repleted. Weaning fentnyl gtt. 04/07: Ultrasound guided thoracentesis today scheduled, inadequate amount of pleural effusion on so not completed. Patient was started on Levophed overnight which was weaned off this morning however had to be started twice a day. Remains on fentanyl and Precedex. Cardiology discontinued BB and ACEi in setting of hypotension. 04/08: COVID-19 PCR negative. Routine EEG ordered by cardiology which showed ST changes, cardiology aware. They will continue conservative treatment. Repeat troponins 0.030 which are less than admit of 0.048. Dr. Grayson had a long discu ssion with with the use of mixed animal veterinarian today at bedside and has not made a decision regarding goals of care. Possible consult to surgery for trach/PEG early next week. Continues to require Precedex and fentanyl drip for sedation. Carvedilol/lisinopril discontinued as patient is continuously on Levophed. 04/09: No acute events reported overnight, remains on fentanyl, Precedex and Levophed drips. Dr. Grayson and Dr. Pineda updated family at bedside extensively today. Consulted surgery for trach/PEG. COVID-19 PCR negative. 04/10: Patient noted to have desaturation episodes, FiO2 increased slightly to 35%. Will add Mucomyst. Remains on fentanyl and Precedex. Off of Levophed. Surgery consulted for trach/PEG. 04/11: FiO2 increased over night likely related to hypoxia, continues on fent gtt, weaning precedex gtt as he is also on Seroquel. Will d/w CCM re scheduled or prn oxycodone 04/12: Periods of hypoxia and tachycardia this am. Symptoms improved post deep suction and tracheal lavage, Repeat CXR noted with no significant change. Continue CPT and mucomyst. Plan for possible trach/PEG tomorrow by general surgery. 04/13: Remains stable on the vent. Patient is wake and tracking but does not follow simple commands. No report of hypoxia from overnight, continue CPT and mucomyst. Plan for track and PEG today by General Surgery. Plan for LTAC placement post procedure, case management to arrange. 04/14: VIRGILIO overnight, Trach and PEG postponed for today by general surgery. Plan for LTAC placement post procedure, case management to arrange. 04/15: S/p Trach and PEG. Up to 80% FiO2 this am, this am CXR noted suggesting possible mucus plug. D/W [facility] plan for bronch today. Continue CPT and mucomyst. Plan of care thoroughly discussed with patient's and son (who translated for ) at the bedside. Per , paper machine back tender had already discussed the risks and benefits of the procedure yesterday. She verbalized understanding and agreed with procedure and current care plan, consent signed. Okay to use PEG-tube for meds this am, resume TF once okay by general Surgery. Case management to arrange LTAC placement. 04/16: s/p Bronchocopy by [facility]. FiO2 down to 60%, angela 10 this am. This am CXR with moderate improvement. Continue CPT and mucomyst, wean Fio2 as tolerated for SPO2 above 92%. Patient is tolerating TF, advance to goal as ordered. Possible LTAC placement, case management to arrange. 04/17: VIRGILIO overnight. remains stable on the vent, recent CXR and this am ABG n oted. Continue CPT and mucomyst, wean Fio2 as tolerated. 04/18: Remains stable on the vent, Fio2 down to 55% and peep of 8 this am. Continue to wean as tolerated, CPT, and mucomyst. Dsiposition- LTAC placement, case management to arrange. 04/19: No acute events overnight. Continue current management. 04/20: No acute events overnight, continue current management 04/21: Patient had chest ultrasound which showed trace pleural effusions, chest x-ray improved after the addition of Mucomyst yesterday. FiO2 55-65%. No acute events overnight. more interactive today. 04/22: Seroquel changed to BID, FiO2 was increased to 60%. RT increased FIO2 to 100 d/t desaturation into the 80s but was able to wean down. CCM increased PEEP and decreased FiO2. 04/23: CCM increase PEEP, no acute events reported overnight. 04/24: Spoke to RT about decreasing FiO2 as tolerated. No acute events reported overnight. Continue supportive management. 04/25: Weaning as tolerated. no acute events overnight. RT to attempt CPAP again today 04/26: VIRGILIO overnight. Patient failed PSV trial again this morning. Continue s upportive management and daily PST trial. 04/27: Patient failed PSV trial again this am due to episodes of apnea. Continue daily PSV trial as tolerated. Case management to arrange LTAC placement 04/28: Remains stable. Continue daily PSV trial as tolerated. Awaiting approval for LTAC 04/29: VIRGILIO overnight. Continue daily PSV trial. Awaiting approval for LTAC, case management to arrange. 04/30: Patient continue to fail PSV trial. Per case management patient was denied for LTAC, now possible SNF placement. Case managemen to arrange. Continue supportive measures and daily PSV trial as tolerated. 05/01: VIRGILIO overnight. Continue supportive measures and daily PSV trial as tolerated. Possible SNF placement. 05/02: Continue supportive measures and daily PSV trial as tolerated. Possible SNF placement, case management to arrange Assessment and Plan #Acute Hypoxemic Respiratory Failure 12/09 #Acute Bronchopneumonia - Intubated in the ED on 04/02 for hypoxemia and airway protection - 04/14 s/p Trach and PEG - 04/15 CXR reviewed complete opacity of the righ side suggesting possible mucus plug. See report for detail - 04/15 s/p Bronchoscopy by [facility] - Vent setting: PRVC-40%,10,14,400 - No ABG this am - CCM consulted, appreciate recommendations - Patient failed PST trial again today due to episodes of apnea - Continue daily PSVT as tolerated - Continue CPT and mucomyst per CCM - VAP bundle addressed - Aspiration precaution HOB above 30 - PRN ABG and CXR per CCM - Continue SPO2 monitoring for SPO2 goal above 92% #Sepsis #Acute Bronchopneumonia #HCAP #Leukocytosis - CXR shows moderate to large layering effusion on the right, see report for full detail - CT chest also reviewed, findings are most consistent with acute bronchopneumonia. See report for full detail - Patient was recent hospitalized for pneumonia - Patient remains afebrile - Tracheal aspirate with Pseudomonas aeruginosa, Enterobacter aerogenes - 04/02 blood culture with bacillus species, 04/05 blood culture NGTD - Patient completed [id number] of Cefepine - CRP 31.6, procalcitonin 0.08 - MRSA negative - Daily CBC monitor - ID signed off #Suspect ischemic coronary artery disease #h/o cardiomyopathy - Low BP probably due to hypovolemia vs sedation vs infectious process - s/p Levophed gtt - Elevated troponin possibly a type II troponin leak - Cardiology consulted, appreciated recommendations - Echocardiogram shows ejection fraction of 40 to 45%, mild global hypokinesis of left ventricle - Continue BB - Continue blood pressure monitor per protocol - Maintain MAP above 65 - On heparin SubQ #H/o Amyotrophic Lateral Sclerosis #Acute Metabolic Encephalopathy-resolved #Nonverbal at Baseline - Presented with AMS, per family patient is nonverbal at baseline but responsive - CT head/Brain with no acute intracranial process - Off sedation. Awake and calm - Continue Seroquel per [facility] - Avoid benzodiazepine to reduce the possibility of delirium - PRN analgesia for CPOT greater than 3 - Maintenance of sleep-wake cycle #Thrombocytopenia-resolved - Continue to trend plt - On heparin subQ - Monitor for s/s of any active bleeding #Hypernatremia-resolved - Monitor and replace electrolytes as needed - Continue to trend BMP #Protein Caloric Malnutrition - Albumin 2.7, Total protein 4.6 - 04/15 s/p EPG-Tube placement - Continue enteral nutrition - Nutrition consulted #Constipation - Noted on CXR and KUB - last BM 04/27 - Continue BR #GI/DVT Prophylaxis - PPI- Pepcid - Heparin SubQ - SCDs to bilateral lower extremities while in bed #Advance Care Planning - Disease education data, care plan, diagnoses, and prognosis were discussed patient's , Carly Lopez, and patient daughter, Kaylee Warren, who translated for #[phone]. They reported that patient was following at [place] for his ALS and during recent hospitalization at [facility] they were told nothing else can be offered to patient at this time and patient was discharge home with home hospice and PO morphine. First hospice visit was on , however, patient became unresponsive yesterday and they brought in to the hospital. - Goal of care and code status were also addressed at that time. Family wants to wait for a couple days to see how patient respond to current treatment before making a decision. All questions and concerns were addressed at this time. Patient family acknowledged understanding and agreement with care plan. - Patient remains a FULL CODE status -04/05: Discussion at bedside with interpreting service with Dr. Valdivia and nya fernandez state they would discuss next steps amongst themselves and let healthcare team know of decisions -04/06: extensive discussion with family ( and son) with Dr. Grayson regarding goals of care -04/08: Extensive discussion with with the use of mixed animal veterinarian line regarding goals of care; no decision made. Possible consult to surgery for trach/PEG early next week. -04/09: Discussion with and her sister with Dr. Grayson and then with Dr. Pineda-> Consulted surgery for trach/peg -04/30 Insurance Denied LTAC, plan for possible SNF placemenet now. Case management to arrange The high probability of a clinically significant, sudden or life threatening deterioration of the [multiple] system(s) required my full and direct attention, intervention and personal management. The aggregate critical care time was [60] minutes. This time is in addition to time spent performing reported procedures but includes the following: [x] Data Review and interpretation [x] Patient assessment and monitoring of vital signs [x] Documentation [x] Medication orders and management Disposition Plan: ICU Total Time Spent with Patient (Minutes): 60 History Interval history: Patient seen and examined at the bedside. Stable on the vent, awake and tracking, following simple commands, VSS. VIRGILIO overnight Hospitalist Physical - Physical exam Narrative exam: General appearance: Present: no acute distress, cachectic, other (Trach and on the vent.Awake and tracking, following simple commands) - EENT Eyes: Present: PERRL - Neck Neck: Present: normal ROM - Respiratory Respiratory effort: normal Respiratory: bilateral: rhonchi - Cardiovascular Rhythm: regular Heart Sounds: Present: S1 & S2 - Extremities Extremities: no ischemia, pulses intact, pulses symmetrical Peripheral Pulses: within normal limits - Abdominal General gastrointestinal: soft, non-distended, normal bowel sounds - Integumentary Integumentary: Present: warm, dry - Psychiatric Psychiatric: other (Trach and on the vent. Awake and tracking, following simple commands) - Neurologic Neurologic: other (Trach and on the vent. Awake and tracking, following simple commands) - Allied Health Allied health notes reviewed: nursing, case management - Constitutional Vitals: Temp Pulse Resp BP Pulse Ox 99.3 F 109 H 14 111/69 93 05/02/22 04:00 05/02/22 07:49 05/02/22 07:49 05/02/22 07:49 05/02/22 08:15 HEART Score - HEART Score Troponin: Troponin T 0.031 ng/mL (0.00-0.029) H 04/08/22 17:47 Results - Labs CBC & Chem 7: 05/02/22 04:29 04/29/22 04:18 Labs: Laboratory Last Values WBC 12.9 K/mm3 (4.5-11.0) H 05/02/22 04:29 RBC 2.82 M/mm3 (3.65-5.03) L 05/02/22 04:29 Hgb 8.4 gm/dl (11.8-15.2) L 05/02/22 04:29 Hct 26.2 % (35.5-45.6) L 05/02/22 04:29 MCV 93 fl (84-94) 05/02/22 04:29 MCH 30 pg (28-32) 05/02/22 04:29 MCHC 32 % (32-34) 05/02/22 04:29 RDW 14.0 % (13.2-15.2) 05/02/22 04:29 Plt Count 327 K/mm3 (140-440) 05/02/22 04:29 Lymph % (Auto) 4.3 % (13.4-35.0) L 04/07/22 03:51 [place] % (Auto) 8.8 % (0.0-7.3) H 04/07/22 03:51 Eos % (Auto) 0.1 % (0.0-4.3) 04/07/22 03:51 Baso % (Auto) 0.2 % (0.0-1.8) 04/07/22 03:51 Lymph # (Auto) 0.6 K/mm3 (1.2-5.4) L 04/07/22 03:51 [place] # (Auto) 1.3 K/mm3 (0.0-0.8) H 04/07/22 03:51 Eos # (Auto) 0.0 K/mm3 (0.0-0.4) 04/07/22 03:51 Baso # (Auto) 0.0 K/mm3 (0.0-0.1) 04/07/22 03:51 Add Manual Diff Complete 04/02/22 19:39 Total Counted 100 04/02/22 19:39 Seg Neutrophils % 86.6 % (40.0-70.0) H 04/07/22 03:51 Seg Neuts % (Manual) 94.0 % (40.0-70.0) H 04/02/22 19:39 Band Neutrophils % 0 % 04/02/22 19:39 Lymphocytes % (Manual) 1.0 % (13.4-35.0) L 04/02/22 19:39 Reactive Lymphs % (Man) 0 % 04/02/22 19:39 Monocytes % (Manual) 5.0 % (0.0-7.3) 04/02/22 19:39 Eosinophils % (Manual) 0 % (0.0-4.3) 04/02/22 19:39 Basophils % (Manual) 0 % (0.0-1.8) 04/02/22 19:39 Metamyelocytes % 0 % 04/02/22 19:39 Myelocytes % 0 % 05/27/22 19:39 Promyelocytes % 0 % 04/02/22 19:39 Blast Cells % 0 % 04/02/22 19:39 Nucleated RBC % Not Reportable 04/02/22 19:39 Seg Neutrophils # 12.7 K/mm3 (1.8-7.7) H 04/07/22 03:51 Seg Neutrophils # Man 13.4 K/mm3 (1.8-7.7) H 04/02/22 19:39 Band Neutrophils # 0.0 K/mm3 04/02/22 19:39 Lymphocytes # (Manual) 0.1 K/mm3 (1.2-5.4) L 04/02/22 19:39 Abs React Lymphs (Man) 0.0 K/mm3 04/02/22 19:39 Monocytes # (Manual) 0.7 K/mm3 (0.0-0.8) 04/02/22 19:39 Eosinophils # (Manual) 0.0 K/mm3 (0.0-0.4) 04/02/22 19:39 Basophils # (Manual) 0.0 K/mm3 (0.0-0.1) 04/02/22 19:39 Metamyelocytes # 0.0 K/mm3 04/02/22 19:39 Myelocytes # 0.0 K/mm3 04/02/22 19:39 Promyelocytes # 0.0 K/mm3 04/02/22 19:39 Blast Cells # 0.0 K/mm3 04/02/22 19:39 WBC Morphology Not Reportable 04/02/22 19:39 Hypersegmented Neuts Not Reportable 04/02/22 19:39 Hyposegmented Neuts Not Reportable 04/02/22 19:39 Hypogranular Neuts Not Reportable 04/02/22 19:39 Smudge Cells Not Reportable 04/02/22 19:39 Toxic Granulation Not Reportable 04/02/22 19:39 Toxic Vacuolation Not Reportable 04/02/22 19:39 Dohle Bodies Not Reportable 04/02/22 19:39 Pelger-Huet Anomaly Not Reportable 04/02/22 19:39 Terry Rods Not Reportable 04/02/22 19:39 Platelet Estimate Consistent w auto 04/02/22 19:39 Clumped Platelets Not Reportable 04/02/22 19:39 Plt Clumps, EDTA Not Reportable 04/02/22 19:39 Large Platelets Not Reportable 04/02/22 19:39 Giant Platelets Not Reportable 04/02/22 19:39 Platelet Satelliting Not Reportable 04/02/22 19:39 Plt Morphology Comment Not Reportable 04/02/22 19:39 RBC Morphology Not Reportable 04/02/22 19:39 Dimorphic RBCs Not Reportable 04/02/22 19:39 Polychromasia Not Reportable 04/02/22 19:39 Hypochromasia Not Reportable 04/02/22 19:39 Poikilocytosis Not Reportable 04/02/22 19:39 Anisocytosis 1+ 04/02/22 19:39 Microcytosis Not Reportable 04/02/22 19:39 Macrocytosis Not Reportable 04/02/22 19:39 Spherocytes Not Reportable 04/02/22 19:39 Pappenheimer Bodies Not Reportable 04/02/22 19:39 Sickle Cells Not Reportable 04/02/22 19:39 Target Cells Not Reportable 04/02/22 19:39 Tear Drop Cells Not Reportable 04/02/22 19:39 Ovalocytes Not Reportable 04/02/22 19:39 Helmet Cells Not Reportable 04/02/22 19:39 [place] Bodies Not Reportable 04/02/22 19:39 [place] Rings Not Reportable 04/02/22 19:39 [place] Cells Not Reportable 04/02/22 19:39 Bite Cells Not Reportable 04/02/22 19:39 Crenated Cell Not Reportable 04/02/22 19:39 Elliptocytes Not Reportable 04/02/22 19:39 Acanthocytes (Spur) Not Reportable 04/02/22 19:39 Rouleaux Not Reportable 04/02/22 19:39 Hemoglobin C Crystals Not Reportable 04/02/22 19:39 Schistocytes Not Reportable 04/02/22 19:39 Malaria parasites Not Reportable 04/02/22 19:39 [place] Bodies Not Reportable 04/02/22 19:39 Hem Pathologist Commnt No 04/02/22 19:39 PT 13.6 Sec. (12.2-14.9) 04/13/22 04:30 INR 0.94 (0.87-1.13) 04/13/22 04:30 APTT 35.7 Sec. (24.2-36.6) 04/07/22 03:51 ABG pH 7.457 pH Units (7.350-7.450) H 04/25/22 09:00 ABG pCO2 61.7 mm Hg 04/25/22 09:00 ABG pO2 66.7 mm Hg (80.0-90.0) L 04/25/22 09:00 ABG HCO3 42.6 mmol/L (20.0-26.0) H 04/25/22 09:00 ABG O2 Saturation 95.7 % (95.0-99.0) 04/25/22 09:00 ABG O2 Content 20.0 (0.0-44) 04/25/22 09:00 ABG Base Excess 15.3 mmol/L (-2.0-3.0) H 04/25/22 09:00 ABG Hemoglobin 8.8 gm/dl (14.0-18.0) L 04/25/22 09:00 ABG Carboxyhemoglobin 1.3 % (0.0-5.0) 04/25/22 09:00 ABG Methemoglobin 0.4 % (0.0-1.5) 04/25/22 09:00 Oxyhemoglobin 94.1 % (95.0-99.0) L 04/25/22 09:00 FiO2 35 % 04/25/22 09:00 Sodium 138 mmol/L (137-145) 04/29/22 04:18 Potassium 4.3 mmol/L (3.6-5.0) 04/29/22 04:18 Chloride 95.2 mmol/L (98-107) L 04/29/22 04:18 Carbon Dioxide 38 mmol/L (22-30) H 04/29/22 04:18 Anion Gap 9 mmol/L 04/29/22 04:18 BUN 19 mg/dL (9-20) 04/29/22 04:18 Creatinine < 0.2 mg/dL (0.8-1.3) L 04/29/22 04:18 Estimated GFR > 60 ml/min 04/29/22 04:18 BUN/Creatinine Ratio 95 % 04/29/22 04:18 Glucose 116 mg/dL (75-100) H 04/29/22 04:18 POC Glucose 128 mg/dL (70-105) H 04/20/22 11:40 Lactic Acid 1.90 mmol/L (0.7-2.0) 04/02/22 19:39 Calcium 8.7 mg/dL (8.4-10.2) 04/29/22 04:18 Phosphorus 3.80 mg/dL (2.5-4.5) 04/29/22 04:18 Magnesium 1.80 mg/dL (1.7-2.3) 04/29/22 04:18 Total Bilirubin 0.80 mg/dL (0.1-1.2) 04/02/22 19:39 AST 15 units/L (5-40) 04/02/22 19:39 ALT 9 units/L (7-56) 04/02/22 19:39 Alkaline Phosphatase 43 units/L (35-129) 04/02/22 19:39 Total Creatine Kinase 46 units/L (55-170) L 04/08/22 17:47 CK-MB (CK-2) 2.6 ng/mL (0.0-4.0) 04/08/22 17:47 CK-MB (CK-2) Rel Index 5.6 (0-4) H 04/08/22 17:47 Troponin T 0.031 ng/mL (0.00-0.029) H 04/08/22 17:47 C-Reactive Protein 31.60 mg/dL (0.00-1.30) H 04/04/22 04:18 Total Protein 4.6 g/dL (6.3-8.2) L 04/02/22 19:39 Albumin 2.7 g/dL (3.9-5) L 04/02/22 19:39 Albumin/Globulin Ratio 1.4 % 04/02/22 19:39 Triglycerides 80 mg/dL (2-149) 04/02/22 19:39 Cholesterol 94 mg/dL (50-199) 04/02/22 19:39 LDL Cholesterol Direct 27 mg/dL (50-130) L 04/02/22 19:39 HDL Cholesterol 47 mg/dL (40-59) 04/02/22 19:39 Cholesterol/HDL Ratio 2.00 % 04/02/22 19:39 Procalcitonin 0.08 ng/mL (<0.15) 04/04/22 04:18 Urine Color Aracely (Yellow) 04/05/22 17:45 Urine Turbidity Cloudy (Clear) 04/05/22 17:45 Urine pH 5.0 (5.0-7.0) 04/05/22 17:45 Ur Specific [place] 1.021 (1.003-1.030) 04/05/22 17:45 Urine Protein 30 mg/dl mg/dL (Negative) 04/05/22 17:45 Urine Glucose (UA) Neg mg/dL (Negative) 04/05/22 17:45 Urine Ketones Tr mg/dL (Negative) 04/05/22 17:45 Urine Blood Sm (Negative) 04/05/22 17:45 Urine Nitrite Neg (Negative) 04/05/22 17:45 Urine Bilirubin Neg (Negative) 04/05/22 17:45 Urine Urobilinogen < 2.0 mg/dL (<2.0) 04/05/22 17:45 Ur Leukocyte Esterase Tr (Negative) 04/05/22 17:45 Urine WBC (Auto) 8.0 /HPF (0.0-6.0) H 04/05/22 17:45 Urine RBC (Auto) 3.0 /HPF (0.0-6.0) 04/05/22 17:45 U Epithel Cells (Auto) 2.0 /HPF (0-13.0) 04/05/22 17:45 Urine Bacteria (Auto) 1+ /HPF (Negative) 04/02/22 Unknown Hyaline Casts 1 /LPF 04/05/22 17:45 Urine Mucus 3+ /HPF 04/05/22 17:45 Nasal Screen MRSA (PCR) Negative (Negative) 04/05/22 12:37 Vancomycin Trough 6.0 ug/mL (5.0-20.0) 04/05/22 18:53 Coronavirus (PCR) Negative (Negative) 04/07/22 14:52 Perez/IV: Voiding Method Condom Catheter Active Medications - Current Medications Current Medications: Generic Name Dose Route Start Last Admin Trade Name Freq PRN Reason Stop Dose Admin Acetaminophen 650 mg 04/02/22 23:53 04/30/22 12:40 Acetaminophen 325 Mg Tab PO 650 mg Q6H PRN Administration Pain MILD(1-3)/Fever >100.5/FAITH Acetylcysteine 200 mg 04/21/22 16:00 05/02/22 07:49 Acetylcysteine 20% 200 Mg/1 Ml *For Inhalation Use* INHALATION 200 mg Q8HRT SEGUNDO Administration Albuterol 2.5 mg 04/06/22 16:00 05/02/22 07:49 Albuterol 2.5 Mg/3 Ml Nebu IH 2.5 mg Q8HRT SEGUNDO Administration Bisacodyl 10 mg 04/07/22 09:44 04/12/22 10:06 Bisacodyl 10 Mg Rect Supp PA 10 mg QDAY PRN Administration Constipation Dextrose 50 ml 04/06/22 17:54 Dextrose 50% In Water (25gm) 50 Ml Syringe IV Q30MIN PRN Hypoglycemia Protocol Docusate Sodium 100 mg 04/28/22 10:00 05/02/22 09:28 Docusate Sodium 100 Mg/10 Ml Oral Liqd FEEDTUBE 100 mg BID SEGUNDO Administration Famotidine 20 mg 04/06/22 10:00 05/02/22 09:29 Famotidine 20 Mg Tab FEEDTUBE 20 mg BID SEGUNDO Administration Fentanyl 50 mcg 04/04/22 15:56 04/29/22 21:40 Fentanyl 100 Mcg/2 Ml Inj IV 50 mcg Q2HR PRN Administration For CPOT of greater than 3 Heparin Sodium (Porcine) 5,000 unit 04/03/22 06:00 05/02/22 06:12 Heparin 5,000 Unit/1 Ml Vial SUB-Q 5,000 unit Q8HR SEGUNDO Administration Insulin Human Regular 0 units 04/06/22 18:00 05/02/22 06:16 Insulin Regular, Human 100 Units/1 Ml SUB-Q Not Given Q6H [facility] Protocol Magnesium Hydroxide 30 ml 04/02/22 23:53 Magnesium Hydroxide (Mom) Oral Liqd Udc PO Q4H PRN Constipation Metoprolol Tartrate 25 mg 04/16/22 18:00 05/02/22 06:12 Metoprolol Tartrate 25 Mg Tab FEEDTUBE 25 mg Q6HR SEGUNDO Administration Ondansetron HCl 4 mg 04/02/22 23:53 Ondansetron 4 Mg/2 Ml Inj IV Q8H PRN Nausea And Vomiting Polyethylene Glycol 17 gm 04/08/22 10:00 05/02/22 09:28 Polyethylene Glycol 3350 17 Gm Powder PO 17 gm QDAY SEGUNDO Administration Quetiapine Fumarate 50 mg 04/28/22 10:00 05/02/22 09:28 Quetiapine 25 Mg Tab FEEDTUBE 50 mg BID SEGUNDO Administration Senna 17.6 mg 04/28/22 10:00 05/02/22 09:28 Sennosides Oral Liqd 8.8 Mg/5 Ml Oral Liqd FEEDTUBE 17.6 mg Q12HR SEGUNDO Administration Sodium Chloride 10 ml 04/03/22 10:00 05/02/22 09:29 Sodium Chloride 0.9% 10 Ml Flush Syringe IV 10 ml BID SEGUNDO Administration Sodium Chloride 10 ml 04/02/22 23:53 Sodium Chloride 0.9% 10 Ml Flush Syringe IV PRN PRN LINE FLUSH Nutrition/Malnutrition Assess - Dietary Evaluation Nutrition/Malnutrition Findings: Nutrition Notes Start: 04/04/22 13:13 Freq: Status: Active Protocol: Document 04/27/22 11:53 COLLEEN (Rec: 04/27/22 12:21 COLLEEN [id number]) Nutrition Notes Initial or Follow up Reassessment Current Diagnosis Coronary Artery Disease, Decubitus(Pressure Ulcer), Sepsis,Respiratory Failure, Malnutrition Other Pertinent Diagnosis HCAP, HFpEF, ALS, Pleural Effusion, R-Lung Collapse, .. . Current Diet TF-Vital AF 1.2 Inderjit @ 50 ml/hr (since D 04/15). Labs/Tests 04/27: Cl 93.2, CO2 37, Crea < 0.2, Glu 114. Pertinent Medications 04/27: Nutritionally unremarkable. Height 5 ft 4.8 in Weight 46.8 kg [place] Body Weight (kg) 61.27 BMI 17.2 Weight change and time frame No body weight change reported in 3 weeks. Weight Status Underweight Subjective/Other Information RD consult for routine F/U on TF tolerance/continuation. TF continues as prescribed, and well tolerated, according to RN notes. Pt continues on Mechanical ventilation, O2 saturation @ 96%, according to Physical Assessment Histroy notes. Pt continues to present constipation, according to Physical Assessment Histroy notes. 3 failed attempts to wean Pt from Mechanical Ventilation, Pt is back to previous settings in [facility], according to RN notes. Pt is pending authorization for LTAC placement, according to Progress notes. Percent of energy/protein needs met: Prescribed TF-Vital AF 1.2 Inderjit @ 50 ml/hr provides for energy/protein needs (1,450 Kcal/91 g) during LOS, 98% Kcal; 100% AA. Burn Absent Trauma Absent GI Symptoms Constipation Difficulty In Swallowing,Chewing Food Allergy No Skin Integrity/Comment Sacral open wound. Current % PO Other Minimum of two criteria No #1 Nutrition Diagnosis Inadequate oral intake Diagnosis Progress(for reassessment Continues documentation) Is patient on ventilator? Yes Is Patient Ambulatory and/or Out of Bed No REE-([facility]-confined to bed) [phone] Calculation Used for Recommendations [facility] Additional Notes Protein: 1.2-2 g/Kg IBW; 73- 122 g/day. Fluids: 1 ml/Kcal, or as per MD. Nutrition Intervention Nutrition Support: Continue TF-Vital AF 1.2 Inderjit @ 50 ml/hr. Flush: 80 ml water Q 4 hr, or as per MD. Kcal 1,450 Protein (gm) 91 Carbohydrates (gm) 134 Fat (gm) 65 Fluid (mL) 980 Fiber (gm) 6 % RDI: 98% Kcal; 100% AA. Goal #1 Provide at least 75% of energy /protein needs through Enteral Feeding during LOS. Follow-Up By: 05/04/22 Additional Comments Continue monitoring TF tolerance and BM. <DIXIE BROWN E - Last Filed: 05/03/22 07:26> Assessment and Plan Assessment and plan: I saw and evaluated the patient. I agree with the findings and the plan of care as documented in the Nurse Practitioner's~note, with the following corrections and additions. Hospitalist Physical - Constitutional Vitals: Temp Pulse Resp BP Pulse Ox 98.3 F 111 H 19 108/75 96 05/03/22 04:00 05/03/22 06:00 05/03/22 06:00 05/03/22 06:00 05/03/22 06:00 HEART Score - HEART Score Troponin: Troponin T 0.031 ng/mL (0.00-0.029) H 04/08/22 17:47 Results - Labs CBC & Chem 7: 05/03/22 04:02 05/03/22 04:02 Labs: Laboratory Last Values WBC 12.3 K/mm3 (4.5-11.0) H 05/03/22 04:02 RBC 2.83 M/mm3 (3.65-5.03) L 05/03/22 04:02 Hgb 8.4 gm/dl (11.8-15.2) L 05/03/22 04:02 Hct 26.0 % (35.5-45.6) L 05/03/22 04:02 MCV 92 fl (84-94) 05/03/22 04:02 MCH 30 pg (28-32) 05/03/22 04:02 MCHC 32 % (32-34) 05/03/22 04:02 RDW 14.0 % (13.2-15.2) 05/03/22 04:02 Plt Count 329 K/mm3 (140-440) 05/03/22 04:02 Lymph % (Auto) 4.3 % (13.4-35.0) L 04/07/22 03:51 [place] % (Auto) 8.8 % (0.0-7.3) H 04/07/22 03:51 Eos % (Auto) 0.1 % (0.0-4.3) 04/07/22 03:51 Baso % (Auto) 0.2 % (0.0-1.8) 04/07/22 03:51 Lymph # (Auto) 0.6 K/mm3 (1.2-5.4) L 04/07/22 03:51 [place] # (Auto) 1.3 K/mm3 (0.0-0.8) H 04/07/22 03:51 Eos # (Auto) 0.0 K/mm3 (0.0-0.4) 04/07/22 03:51 Baso # (Auto) 0.0 K/mm3 (0.0-0.1) 04/07/22 03:51 Add Manual Diff Complete 04/02/22 19:39 Total Counted 100 04/02/22 19:39 Seg Neutrophils % 86.6 % (40.0-70.0) H 04/07/22 03:51 Seg Neuts % (Manual) 94.0 % (40.0-70.0) H 04/02/22 19:39 Band Neutrophils % 0 % 04/02/22 19:39 Lymphocytes % (Manual) 1.0 % (13.4-35.0) L 04/02/22 19:39 Reactive Lymphs % (Man) 0 % 04/02/22 19:39 Monocytes % (Manual) 5.0 % (0.0-7.3) 04/02/22 19:39 Eosinophils % (Manual) 0 % (0.0-4.3) 04/02/22 19:39 Basophils % (Manual) 0 % (0.0-1.8) 04/02/22 19:39 Metamyelocytes % 0 % 04/02/22 19:39 Myelocytes % 0 % 04/02/22 19:39 Promyelocytes % 0 % 04/02/22 19:39 Blast Cells % 0 % 04/02/22 19:39 Nucleated RBC % Not Reportable 04/02/22 19:39 Seg Neutrophils # 12.7 K/mm3 (1.8-7.7) H 04/07/22 03:51 Seg Neutrophils # Man 13.4 K/mm3 (1.8-7.7) H 04/02/22 19:39 Band Neutrophils # 0.0 K/mm3 04/02/22 19:39 Lymphocytes # (Manual) 0.1 K/mm3 (1.2-5.4) L 04/02/22 19:39 Abs React Lymphs (Man) 0.0 K/mm3 04/02/22 19:39 Monocytes # (Manual) 0.7 K/mm3 (0.0-0.8) 04/02/22 19:39 Eosinophils # (Manual) 0.0 K/mm3 (0.0-0.4) 04/02/22 19:39 Basophils # (Manual) 0.0 K/mm3 (0.0-0.1) 04/02/22 19:39 Metamyelocytes # 0.0 K/mm3 04/02/22 19:39 Myelocytes # 0.0 K/mm3 04/02/22 19:39 Promyelocytes # 0.0 K/mm3 04/02/22 19:39 Blast Cells # 0.0 K/mm3 04/02/22 19:39 WBC Morphology Not Reportable 04/02/22 19:39 Hypersegmented Neuts Not Reportable 04/02/22 19:39 Hyposegmented Neuts Not Reportable 04/02/22 19:39 Hypogranular Neuts Not Reportable 04/02/22 19:39 Smudge Cells Not Reportable 04/02/22 19:39 Toxic Granulation Not Reportable 04/02/22 19:39 Toxic Vacuolation Not Reportable 04/02/22 19:39 Dohle Bodies Not Reportable 04/02/22 19:39 Pelger-Huet Anomaly Not Reportable 04/02/22 19:39 Terry Rods Not Reportable 04/02/22 19:39 Platelet Estimate Consistent w auto 04/02/22 19:39 Clumped Platelets Not Reportable 04/02/22 19:39 Plt Clumps, EDTA Not Reportable 04/02/22 19:39 Large Platelets Not Reportable 04/02/22 19:39 Giant Platelets Not Reportable 04/02/22 19:39 Platelet Satelliting Not Reportable 04/02/22 19:39 Plt Morphology Comment Not Reportable 04/02/22 19:39 RBC Morphology Not Reportable 04/02/22 19:39 Dimorphic RBCs Not Reportable 04/02/22 19:39 Polychromasia Not Reportable 04/02/22 19:39 Hypochromasia Not Reportable 04/02/22 19:39 Poikilocytosis Not Reportable 04/02/22 19:39 Anisocytosis 1+ 04/02/22 19:39 Microcytosis Not Reportable 04/02/22 19:39 Macrocytosis Not Reportable 04/02/22 19:39 Spherocytes Not Reportable 04/02/22 19:39 Pappenheimer Bodies Not Reportable 04/02/22 19:39 Sickle Cells Not Reportable 04/02/22 19:39 Target Cells Not Reportable 04/02/22 19:39 Tear Drop Cells Not Reportable 04/02/22 19:39 Ovalocytes Not Reportable 04/02/22 19:39 Helmet Cells Not Reportable 04/02/22 19:39 [place] Bodies Not Reportable 04/02/22 19:39 [place] Rings Not Reportable 04/02/22 19:39 [place] Cells Not Reportable 04/02/22 19:39 Bite Cells Not Reportable 04/02/22 19:39 Crenated Cell Not Reportable 04/02/22 19:39 Elliptocytes Not Reportable 04/02/22 19:39 Acanthocytes (Spur) Not Reportable 04/02/22 19:39 Rouleaux Not Reportable 04/02/22 19:39 Hemoglobin C Crystals Not Reportable 04/02/22 19:39 Schistocytes Not Reportable 04/02/22 19:39 Malaria parasites Not Reportable 04/02/22 19:39 [place] Bodies Not Reportable 04/02/22 19:39 Hem Pathologist Commnt No 04/02/22 19:39 PT 13.6 Sec. (12.2-14.9) 04/13/22 04:30 INR 0.94 (0.87-1.13) 04/13/22 04:30 APTT 35.7 Sec. (24.2-36.6) 04/07/22 03:51 ABG pH 7.457 pH Units (7.350-7.450) H 04/25/22 09:00 ABG pCO2 61.7 mm Hg 04/25/22 09:00 ABG pO2 66.7 mm Hg (80.0-90.0) L 04/25/22 09:00 ABG HCO3 42.6 mmol/L (20.0-26.0) H 04/25/22 09:00 ABG O2 Saturation 95.7 % (95.0-99.0) 04/25/22 09:00 ABG O2 Content 20.0 (0.0-44) 04/25/22 09:00 ABG Base Excess 15.3 mmol/L (-2.0-3.0) H 04/25/22 09:00 ABG Hemoglobin 8.8 gm/dl (14.0-18.0) L 04/25/22 09:00 ABG Carboxyhemoglobin 1.3 % (0.0-5.0) 04/25/22 09:00 ABG Methemoglobin 0.4 % (0.0-1.5) 04/25/22 09:00 Oxyhemoglobin 94.1 % (95.0-99.0) L 04/25/22 09:00 FiO2 35 % 04/25/22 09:00 Sodium 134 mmol/L (137-145) L 05/03/22 04:02 Potassium 4.3 mmol/L (3.6-5.0) 05/03/22 04:02 Chloride 90.5 mmol/L (98-107) L 05/03/22 04:02 Carbon Dioxide 38 mmol/L (22-30) H 05/03/22 04:02 Anion Gap 10 mmol/L 05/03/22 04:02 BUN 21 mg/dL (9-20) H 05/03/22 04:02 Creatinine < 0.2 mg/dL (0.8-1.3) L 05/03/22 04:02 Estimated GFR > 60 ml/min 05/03/22 04:02 BUN/Creatinine Ratio 105 % 05/03/22 04:02 Glucose 126 mg/dL (75-100) H 05/03/22 04:02 POC Glucose 128 mg/dL (70-105) H 04/20/22 11:40 Lactic Acid 1.90 mmol/L (0.7-2.0) 04/02/22 19:39 Calcium 8.9 mg/dL (8.4-10.2) 05/03/22 04:02 Phosphorus 3.40 mg/dL (2.5-4.5) 05/03/22 04:02 Magnesium 1.90 mg/dL (1.7-2.3) 05/03/22 04:02 Total Bilirubin 0.80 mg/dL (0.1-1.2) 04/02/22 19:39 AST 15 units/L (5-40) 04/02/22 19:39 ALT 9 units/L (7-56) 04/02/22 19:39 Alkaline Phosphatase 43 units/L (35-129) 04/02/22 19:39 Total Creatine Kinase 46 units/L (55-170) L 04/08/22 17:47 CK-MB (CK-2) 2.6 ng/mL (0.0-4.0) 04/08/22 17:47 CK-MB (CK-2) Rel Index 5.6 (0-4) H 04/08/22 17:47 Troponin T 0.031 ng/mL (0.00-0.029) H 04/08/22 17:47 C-Reactive Protein 31.60 mg/dL (0.00-1.30) H 04/04/22 04:18 Total Protein 4.6 g/dL (6.3-8.2) L 04/02/22 19:39 Albumin 2.7 g/dL (3.9-5) L 04/02/22 19:39 Albumin/Globulin Ratio 1.4 % 04/02/22 19:39 Triglycerides 80 mg/dL (2-149) 04/02/22 19:39 Cholesterol 94 mg/dL (50-199) 04/02/22 19:39 LDL Cholesterol Direct 27 mg/dL (50-130) L 04/02/22 19:39 HDL Cholesterol 47 mg/dL (40-59) 04/02/22 19:39 Cholesterol/HDL Ratio 2.00 % 04/02/22 19:39 Procalcitonin 0.08 ng/mL (<0.15) 04/04/22 04:18 Urine Color Arac[place] (Yellow) 04/05/22 17:45 Urine Turbidity Cloudy (Clear) 04/05/22 17:45 Urine pH 5.0 (5.0-7.0) 04/05/22 17:45 Ur Specific [place] 1.021 (1.003-1.030) 04/05/22 17:45 Urine Protein 30 mg/dl mg/dL (Negative) 04/05/22 17:45 Urine Glucose (UA) Neg mg/dL (Negative) 04/05/22 17:45 Urine Ketones Tr mg/dL (Negative) 04/05/22 17:45 Urine Blood Sm (Negative) 04/05/22 17:45 Urine Nitrite Neg (Negative) 04/05/22 17:45 Urine Bilirubin Neg (Negative) 04/05/22 17:45 Urine Urobilinogen < 2.0 mg/dL (<2.0) 04/05/22 17:45 Ur Leukocyte Esterase Tr (Negative) 04/05/22 17:45 Urine WBC (Auto) 8.0 /HPF (0.0-6.0) H 04/05/22 17:45 Urine RBC (Auto) 3.0 /HPF (0.0-6.0) 04/05/22 17:45 U Epithel Cells (Auto) 2.0 /HPF (0-13.0) 04/05/22 17:45 Urine Bacteria (Auto) 1+ /HPF (Negative) 04/02/22 Unknown Hyaline Casts 1 /LPF 04/05/22 17:45 Urine Mucus 3+ /HPF 04/05/22 17:45 Nasal Screen MRSA (PCR) Negative (Negative) 04/05/22 12:37 Vancomycin Trough 6.0 ug/mL (5.0-20.0) 04/05/22 18:53 Coronavirus (PCR) Negative (Negative) 04/07/22 14:52 Perez/IV: Voiding Method Condom Catheter Active Medications - Current Medications Current Medications: Generic Name Dose Route Start Last Admin Trade Name Freq PRN Reason Stop Dose Admin Acetaminophen 650 mg 04/02/22 23:53 05/03/22 02:34 Acetaminophen 325 Mg Tab PO 650 mg Q6H PRN Administration Pain MILD(1-3)/Fever >100.5/FAITH Acetylcysteine 200 mg 04/21/22 16:00 05/03/22 00:34 Acetylcysteine 20% 200 Mg/1 Ml *For Inhalation Use* INHALATION Not Given Q8HRT SEGUNOD Albuterol 2.5 mg 04/06/22 16:00 05/03/22 00:33 Albuterol 2.5 Mg/3 Ml Nebu IH 2.5 mg Q8HRT SEGUNDO Administration Bisacodyl 10 mg 04/07/22 09:44 04/12/22 10:06 Bisacodyl 10 Mg Rect Supp PA 10 mg QDAY PRN Administration Constipation Dextrose 50 ml 04/06/22 17:54 Dextrose 50% In Water (25gm) 50 Ml Syringe IV Q30MIN PRN Hypoglycemia Protocol Docusate Sodium 100 mg 04/28/22 10:00 05/02/22 21:02 Docusate Sodium 100 Mg/10 Ml Oral Liqd FEEDTUBE 100 mg BID SEGUNDO Administration Famotidine 20 mg 04/06/22 10:00 05/02/22 21:03 Famotidine 20 Mg Tab FEEDTUBE 20 mg BID SEGUNDO Administration Fentanyl 50 mcg 04/04/22 15:56 04/29/22 21:40 Fentanyl 100 Mcg/2 Ml Inj IV 50 mcg Q2HR PRN Administration For CPOT of greater than 3 Heparin Sodium (Porcine) 5,000 unit 04/03/22 06:00 05/03/22 05:16 Heparin 5,000 Unit/1 Ml Vial SUB-Q 5,000 unit Q8HR SEGUNDO Administration Insulin Human Regular 0 units 04/06/22 18:00 05/03/22 05:14 Insulin Regular, Human 100 Units/1 Ml SUB-Q Not Given Q6H [facility] Protocol Magnesium Hydroxide 30 ml 04/02/22 23:53 Magnesium Hydroxide (Mom) Oral Liqd Udc PO Q4H PRN Constipation Metoprolol Tartrate 25 mg 04/16/22 18:00 05/03/22 05:15 Metoprolol Tartrate 25 Mg Tab FEEDTUBE Not Given Q6HR SEGUNDO Ondansetron HCl 4 mg 04/02/22 23:53 Ondansetron 4 Mg/2 Ml Inj IV Q8H PRN Nausea And Vomiting Polyethylene Glycol 17 gm 04/08/22 10:00 05/02/22 09:28 Polyethylene Glycol 3350 17 Gm Powder PO 17 gm QDAY SEGUNDO Administration Quetiapine Fumarate 50 mg 04/28/22 10:00 05/02/22 21:03 Quetiapine 25 Mg Tab FEEDTUBE 50 mg BID SEGUNDO Administration Senna 17.6 mg 04/28/22 10:00 05/02/22 21:03 Sennosides Oral Liqd 8.8 Mg/5 Ml Oral Liqd FEEDTUBE 17.6 mg Q12HR SEGUNDO Administration Sodium Chloride 10 ml 04/03/22 10:00 05/02/22 21:03 Sodium Chloride 0.9% 10 Ml Flush Syringe IV 10 ml BID SEGUNDO Administration Sodium Chloride 10 ml 04/02/22 23:53 Sodium Chloride 0.9% 10 Ml Flush Syringe IV PRN PRN LINE FLUSH Nutrition/Malnutrition Assess - Dietary Evaluation Nutrition/Malnutrition Findings: Nutrition Notes Start: 04/04/22 13:13 Freq: Status: Active Protocol: Document 04/27/22 11:53 COLLEEN (Rec: 04/27/22 12:21 COLLEEN [email or web address]) Nutrition Notes Initial or Follow up Reassessment Current Diagnosis Coronary Artery Disease, Decubitus(Pressure Ulcer), Sepsis,Respiratory Failure, Malnutrition Other Pertinent Diagnosis HCAP, HFpEF, ALS, Pleural Effusion, R-Lung Collapse, .. . Current Diet TF-Vital AF 1.2 Inderjit @ 50 ml/hr (since D 04/15). Labs/Tests 04/27: Cl 93.2, CO2 37, Crea < 0.2, Glu 114. Pertinent Medications 04/27: Nutritionally unremarkable. Height 5 ft 4.8 in Weight 46.8 kg [place] Body Weight (kg) 61.27 BMI 17.2 Weight change and time frame No body weight change reported in 3 weeks. Weight Status Underweight Subjective/Other Information RD consult for routine F/U on TF tolerance/continuation. TF continues as prescribed, and well tolerated, according to RN notes. Pt continues on Mechanical ventilation, O2 saturation @ 96%, according to Physical Assessment Histroy notes. Pt continues to present constipation, according to Physical Assessment [facility]roy notes. 3 failed attempts to wean Pt from Mechanical Ventilation, Pt is back to previous settings in [facility], according to RN notes. Pt is pending authorization for LTAC placement, according to Progress notes. Percent of energy/protein needs met: Prescribed TF-Vital AF 1.2 Inderjit @ 50 ml/hr provides for energy/protein needs (1,450 Kcal/91 g) during LOS, 98% Kcal; 100% AA. Burn Absent Trauma Absent GI Symptoms Constipation Difficulty In Swallowing,Chewing Food Allergy No Skin Integrity/Comment Sacral open wound. Current % PO Other Minimum of two criteria No #1 Nutrition Diagnosis Inadequate oral intake Diagnosis Progress(for reassessment Continues documentation) Is patient on ventilator? Yes Is Patient Ambulatory and/or Out of Bed No REE-([facility]-confined to bed) [phone] Calculation Used for Recommendations [facility] Additional Notes Protein: 1.2-2 g/Kg IBW; 73- 122 g/day. Fluids: 1 ml/Kcal, or as per MD. Nutrition Intervention Nutrition Support: Continue TF-Vital AF 1.2 Inderjit @ 50 ml/hr. Flush: 80 ml water Q 4 hr, or as per MD. Kcal 1,450 Protein (gm) 91 Carbohydrates (gm) 134 Fat (gm) 65 Fluid (mL) 980 Fiber (gm) 6 % RDI: 98% Kcal; 100% AA. Goal #1 Provide at least 75% of energy /protein needs through Enteral Feeding during LOS. Follow-Up By: 05/04/22 Additional Comments Continue monitoring TF tolerance and BM.
--- NOTE | 2022-05-02 15:17 | Progress Note ---
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 Right lung hemiopacification- Atelectasis s/p Bronchoscopy Oropharyngeal dysphagia s/p PEG Protein calorie malnutrition Acute Bronchopneumonia HCAP Hypotension NSTEMI H/o Amyotrophic Lateral Sclerosis Nonverbal at Baseline Trach care, airway clearance, Continue with medical management of atelectasis- continue with bronchodilators and chest PT CXR,ABG as clinically indicated- get CXR in the morning, wasn't done this morning Discharge planning -Titrate supplemental oxygen to keep SpO2 89-92% -VAP bundle addressed, aspiration precautions HOB >40 -Lung protective strategies -Daily assessment for readiness to wean. -Monitoring renal function, hemodynamics and electrolyte profile -Accuchecks with glycemic control. target blood glucose 140-180 mg/dL. Avoid hypoglycemia -Continue enteric nutritional support, bowel regimen -VTE prophylaxis- Heparin -Avoid nephrotoxins and renally dose all medications -Stress ulcer prophylaxis- Famotidine -Mobility, frequent turning, off loading per facility protocol to prevent pressure ulcers -Maintain sleep wake cycle, avoid benzodiazepines. -Limit delirium CONDITION:CRITICAL PROGNOSIS: GUARDED CODE STATUS; FULL CODE The high probability of a clinically significant, sudden or life threatening deterioration of the respiratory, cardiovascular, neurology system required my full and direct attention, intervention and personal management. The aggregate critical care time was [33] minutes. This time is in addition to time spent performing reported procedures but includes the following: [x] Data Review and interpretation [x] Patient assessment and monitoring of vital signs [x] Documentation [x] Medication orders and management Subjective Date of service: 05/02/22 Principal diagnosis: Ac and ch hypercapnic and hypoxemic Resp Failure; ALS; HCAP; Sepsis; NSTEMI Interval history: Follow up for : Acute and chronic Respiratory Failure with Hypoxia and H ypercapnia 2/2 ALS;Protein calorie malnutrition;Acute Bronchopneumonia; HCAP; Hypotension; NSTEMI; Hypernatremia; Acute Metabolic Encephalopathy; H/o Amyotrophic Lateral Sclerosis Patient seen and examined. Vitals, labs, medications, chart and imaging reviewed. Discussed with respiratory and nursing care staff. s/p trach and PEG. On PEEP 10 and FIO2 45 % No reported fevers, no vomiting, no diarrhea Patient continues to fail PSV trial. No new respiratory issues Objective Vital Signs - 12hr 0605/02/22 05/02/22 04:00 04:57 05:00 Temperature 99.3 F Pulse Rate 101 H 108 H 108 H Pulse Rate [ Anterior Bilateral Throughout] Pulse Rate [ 107 H From Monitor] Respiratory 14 14 Rate Respiratory Rate [Anterior Bilateral Throughout] Blood Pressure 106/69 120/72 120/72 O2 Sat by Pulse 94 95 95 Oximetry O2 Sat by Pulse Oximetry [ Assessment] 05/02/22 05/02/22 05/02/22 06:00 06:12 07:00 Temperature Pulse Rate 107 H 107 H 100 H Pulse Rate [ Anterior Bilateral Throughout] Pulse Rate [ From Monitor] Respiratory 16 14 Rate Respiratory Rate [Anterior Bilateral Throughout] Blood Pressure 111/72 111/72 104/62 O2 Sat by Pulse 92 95 Oximetry O2 Sat by Pulse Oximetry [ Assessment] 05/02/22 05/02/22 05/02/22 07:49 08:00 08:15 Temperature 99 F Pulse Rate 109 H 107 H Pulse Rate [ 109 H Anterior Bilateral Throughout] Pulse Rate [ From Monitor] Respiratory 15 Rate Respiratory 14 Rate [Anterior Bilateral Throughout] Blood Pressure 111/69 116/70 O2 Sat by Pulse 94 93 93 Oximetry O2 Sat by Pulse 94 Oximetry [ Assessment] 05/02/22 05/02/22 05/02/22 09:00 10:00 11:00 Temperature Pulse Rate 114 H 109 H 111 H Pulse Rate [ Anterior Bilateral Throughout] Pulse Rate [ From Monitor] Respiratory 16 18 15 Rate Respiratory Rate [Anterior Bilateral Throughout] Blood Pressure 111/69 110/73 105/64 O2 Sat by Pulse 93 98 98 Oximetry O2 Sat by Pulse Oximetry [ Assessment] 05/02/22 05/02/22 05/02/22 11:23 12:00 13:00 Temperature 98.8 F Pulse Rate 112 H 112 H 111 H Pulse Rate [ Anterior Bilateral Throughout] Pulse Rate [ From Monitor] Respiratory 14 14 Rate Respiratory Rate [Anterior Bilateral Throughout] Blood Pressure 105/64 104/60 109/66 O2 Sat by Pulse 98 94 99 Oximetry O2 Sat by Pulse Oximetry [ Assessment] 05/02/22 05/02/22 13:11 14:00 Temperature Pulse Rate 109 H 102 H Pulse Rate [ Anterior Bilateral Throughout] Pulse Rate [ From Monitor] Respiratory 17 Rate Respiratory Rate [Anterior Bilateral Throughout] Blood Pressure 107/67 96/64 O2 Sat by Pulse 98 Oximetry O2 Sat by Pulse Oximetry [ Assessment] Constitutional: alert, appears uncomfortable, other (trach to MVS, in bed with mildly increased respiratory effort at rest) Eyes: non-icteric ENT: oropharynx moist, other (+ midline tracheostomy) Neck: supple, no lymphadenopathy, no JVD Effort: mildly labored Ascultation: Bilateral: diminished breath sounds (bases), rhonchi Percussion: Bilateral: not dull Cardiovascular: regular rate and rhythm, other (S1,S2) Gastrointestinal: normoactive bowel sounds, soft, non-tender, non-distended Integumentary: normal Extremities: no cyanosis, no edema, pink and warm, pulses normal Neurologic: pupils equal and round, other (functional quadriplegia) Psychiatric: mood appropriate, affect normal, anxious (affect), other CBC and BMP: 05/02/22 04:29 04/29/22 04:18 ABG, PT/INR, D-dimer: ABG ABG pH 7.457 pH Units (7.350-7.450) H 04/25/22 09:00 ABG pCO2 61.7 mm Hg 04/25/22 09:00 ABG pO2 66.7 mm Hg (80.0-90.0) L 04/25/22 09:00 ABG O2 Saturation 95.7 % (95.0-99.0) 04/25/22 09:00 PT/INR, D-dimer PT 13.6 Sec. (12.2-14.9) 04/13/22 04:30 INR 0.94 (0.87-1.13) 04/13/22 04:30 Abnormal lab findings: Abnormal Labs 04/02/22 04/02/22 04/02/22 19:39 19:39 19:39 WBC 14.3 H RBC Hgb Hct MCV 96 H Plt Count 104 L Lymph % (Auto) [place] % (Auto) Lymph # (Auto) [place] # (Auto) Seg Neutrophils % Seg Neuts % (Manual) 94.0 H Lymphocytes % (Manual) 1.0 L Seg Neutrophils # Seg Neutrophils # Man 13.4 H Lymphocytes # (Manual) 0.1 L PT 15.9 H INR 1.14 H ABG pH ABG pO2 ABG HCO3 ABG O2 Saturation ABG Base Excess ABG Hemoglobin Oxyhemoglobin Sodium 151 H Potassium Chloride Carbon Dioxide BUN Creatinine 0.5 L Glucose POC Glucose Calcium 8.2 L Phosphorus Magnesium 1.60 L Total Creatine Kinase CK-MB (CK-2) Rel Index Troponin T 0.048 H C-Reactive Protein Total Protein 4.6 L Albumin 2.7 L LDL Cholesterol Direct 27 L Urine WBC (Auto) 04/02/22 04/03/22 04/03/22 19:42 05:14 06:30 WBC RBC Hgb Hct MCV Plt Count Lymph % (Auto) [place] % (Auto) Lymph # (Auto) [place] # (Auto) Seg Neutrophils % Seg Neuts % (Manual) Lymphocytes % (Manual) Seg Neutrophils # Seg Neutrophils # Man Lymphocytes # (Manual) PT INR ABG pH 7.471 H 7.496 H ABG pO2 47.8 L 91.0 H ABG HCO3 30.6 H ABG O2 Saturation 94.4 L ABG Base Excess 6.2 H ABG Hemoglobin 11.0 L 12.8 L Oxyhemoglobin 93.1 L Sodium 149 H Potassium 3.4 L Chloride Carbon Dioxide BUN Creatinine 0.4 L Glucose POC Glucose Calcium Phosphorus Magnesium Total Creatine Kinase CK-MB (CK-2) Rel Index Troponin T C-Reactive Protein Total Protein Albumin LDL Cholesterol Direct Urine WBC (Auto) 04/04/22 04/04/22 04/04/22 04:18 04:18 05:50 WBC 11.8 H RBC Hgb Hct MCV Plt Count 132 L Lymph % (Auto) [place] % (Auto) Lymph # (Auto) [place] # (Auto) Seg Neutrophils % Seg Neuts % (Manual) Lymphocytes % (Manual) Seg Neutrophils # Seg Neutrophils # Man Lymphocytes # (Manual) PT INR ABG pH 7.517 H ABG pO2 115.5 H ABG HCO3 29.9 H ABG O2 Saturation ABG Base Excess 6.7 H ABG Hemoglobin 12.3 L Oxyhemoglobin Sodium Potassium 3.5 L Chloride Carbon Dioxide 31 H BUN Creatinine 0.3 L Glucose 153 H POC Glucose Calcium Phosphorus 1.40 L Magnesium 1.50 L Total Creatine Kinase CK-MB (CK-2) Rel Index Troponin T C-Reactive Protein 31.60 H Total Protein Albumin LDL Cholesterol Direct Urine WBC (Auto) 04/05/22 04/05/22 04/05/22 02:50 05:25 11:28 WBC RBC Hgb Hct MCV Plt Count Lymph % (Auto) [place] % (Auto) Lymph # (Auto) [place] # (Auto) Seg Neutrophils % Seg Neuts % (Manual) Lymphocytes % (Manual) Seg Neutrophils # Seg Neutrophils # Man Lymphocytes # (Manual) PT INR ABG pH 7.455 H ABG pO2 50.7 L ABG HCO3 30.5 H ABG O2 Saturation 89.4 L ABG Base Excess 5.9 H ABG Hemoglobin 11.8 L Oxyhemoglobin 88.2 L Sodium Potassium Chloride Carbon Dioxide 32 H BUN Creatinine 0.2 L Glucose 110 H POC Glucose 124 H Calcium 7.9 L Phosphorus Magnesium Total Creatine Kinase CK-MB (CK-2) Rel Index Troponin T C-Reactive Protein Total Protein Albumin LDL Cholesterol Direct Urine WBC (Auto) 04/05/22 04/05/22 04/06/22 17:45 Unknown 04:00 WBC RBC 3.55 L Hgb 11.1 L 11.5 L Hct 33.2 L 35.1 L MCV Plt Count 113 L 114 L Lymph % (Auto) [place] % (Auto) Lymph # (Auto) [place] # (Auto) Seg Neutrophils % Seg Neuts % (Manual) Lymphocytes % (Manual) Seg Neutrophils # Seg Neutrophils # Man Lymphocytes # (Manual) PT INR ABG pH ABG pO2 ABG HCO3 ABG O2 Saturation ABG Base Excess ABG Hemoglobin Oxyhemoglobin Sodium Potassium Chloride Carbon Dioxide BUN Creatinine Glucose POC Glucose Calcium Phosphorus Magnesium Total Creatine Kinase CK-MB (CK-2) Rel Index Troponin T C-Reactive Protein Total Protein Albumin LDL Cholesterol Direct Urine WBC (Auto) 8.0 H 04/06/22 04/06/22 04/07/22 04:00 08:30 00:04 WBC RBC Hgb Hct MCV Plt Count Lymph % (Auto) [place] % (Auto) Lymph # (Auto) [place] # (Auto) Seg Neutrophils % Seg Neuts % (Manual) Lymphocytes % (Manual) Seg Neutrophils # Seg Neutrophils # Man Lymphocytes # (Manual) PT INR ABG pH ABG pO2 60.8 L ABG HCO3 30.5 H ABG O2 Saturation 93.3 L ABG Base Excess 4.9 H ABG Hemoglobin 12.4 L Oxyhemoglobin 92.1 L Sodium Potassium 3.0 L Chloride Carbon Dioxide BUN Creatinine < 0.2 L Glucose 130 H POC Glucose 117 H Calcium 8.1 L Phosphorus Magnesium Total Creatine Kinase CK-MB (CK-2) Rel Index Troponin T C-Reactive Protein Total Protein Albumin LDL Cholesterol Direct Urine WBC (Auto) 04/07/22 04/07/22 04/07/22 03:51 03:51 03:51 WBC 14.6 H RBC 3.57 L Hgb 11.1 L Hct 33.2 L MCV Plt Count 118 L Lymph % (Auto) 4.3 L [place] % (Auto) 8.8 H Lymph # (Auto) 0.6 L [place] # (Auto) 1.3 H Seg Neutrophils % 86.6 H Seg Neuts % (Manual) Lymphocytes % (Manual) Seg Neutrophils # 12.7 H Seg Neutrophils # Man Lymphocytes # (Manual) PT 15.2 H INR ABG pH ABG pO2 ABG HCO3 ABG O2 Saturation ABG Base Excess ABG Hemoglobin Oxyhemoglobin Sodium 133 L Potassium Chloride 96.0 L Carbon Dioxide 31 H BUN Creatinine 0.2 L Glucose 130 H POC Glucose Calcium 8.0 L Phosphorus Magnesium Total Creatine Kinase CK-MB (CK-2) Rel Index Troponin T C-Reactive Protein Total Protein Albumin LDL Cholesterol Direct Urine WBC (Auto) 04/07/22 04/07/22 04/08/22 04:25 09:10 04:49 WBC 16.1 H RBC 3.54 L Hgb 10.9 L Hct 33.3 L MCV Plt Count Lymph % (Auto) [place] % (Auto) Lymph # (Auto) [place] # (Auto) Seg Neutrophils % Seg Neuts % (Manual) Lymphocytes % (Manual) Seg Neutrophils # Seg Neutrophils # Man Lymphocytes # (Manual) PT INR ABG pH ABG pO2 71.0 L 63.4 L ABG HCO3 31.5 H 40.0 H ABG O2 Saturation 94.9 L ABG Base Excess 5.9 H 13.6 H ABG Hemoglobin 11.3 L 9.0 L Oxyhemoglobin 93.6 L Sodium Potassium Chloride Carbon Dioxide BUN Creatinine Glucose POC Glucose Calcium Phosphorus Magnesium Total Creatine Kinase CK-MB (CK-2) Rel Index Troponin T C-Reactive Protein Total Protein Albumin LDL Cholesterol Direct Urine WBC (Auto) 04/08/22 04/08/22 04/08/22 04:49 09:53 10:25 WBC RBC Hgb Hct MCV Plt Count Lymph % (Auto) [place] % (Auto) Lymph # (Auto) [place] # (Auto) Seg Neutrophils % Seg Neuts % (Manual) Lymphocytes % (Manual) Seg Neutrophils # Seg Neutrophils # Man Lymphocytes # (Manual) PT INR ABG pH ABG pO2 ABG HCO3 34.7 H ABG O2 Saturation ABG Base Excess 7.9 H ABG Hemoglobin 11.0 L Oxyhemoglobin Sodium 136 L Potassium Chloride 97.7 L Carbon Dioxide 33 H BUN Creatinine 0.2 L Glucose 155 H POC Glucose Calcium Phosphorus Magnesium Total Creatine Kinase CK-MB (CK-2) Rel Index Troponin T 0.030 H C-Reactive Protein Total Protein Albumin LDL Cholesterol Direct Urine WBC (Auto) 04/08/22 04/08/22 04/08/22 11:19 17:47 18:06 WBC RBC Hgb Hct MCV Plt Count Lymph % (Auto) [place] % (Auto) Lymph # (Auto) [place] # (Auto) Seg Neutrophils % Seg Neuts % (Manual) Lymphocytes % (Manual) Seg Neutrophils # Seg Neutrophils # Man Lymphocytes # (Manual) PT INR ABG pH ABG pO2 ABG HCO3 ABG O2 Saturation ABG Base Excess ABG Hemoglobin Oxyhemoglobin Sodium Potassium Chloride Carbon Dioxide BUN Creatinine Glucose POC Glucose 121 H Calcium Phosphorus Magnesium Total Creatine Kinase 31 L 46 L CK-MB (CK-2) Rel Index 6.4 H 5.6 H Troponin T 0.030 H 0.031 H C-Reactive Protein Total Protein Albumin LDL Cholesterol Direct Urine WBC (Auto) 04/09/22 04/09/22 04/09/22 04:35 04:35 11:24 WBC 11.5 H RBC 3.16 L Hgb 9.9 L Hct 29.4 L MCV Plt Count 131 L Lymph % (Auto) [place] % (Auto) Lymph # (Auto) [place] # (Auto) Seg Neutrophils % Seg Neuts % (Manual) Lymphocytes % (Manual) Seg Neutrophils # Seg Neutrophils # Man Lymphocytes # (Manual) PT INR ABG pH ABG pO2 ABG HCO3 ABG O2 Saturation ABG Base Excess ABG Hemoglobin Oxyhemoglobin Sodium Potassium Chloride 97.1 L Carbon Dioxide 35 H BUN Creatinine < 0.2 L Glucose 145 H POC Glucose 147 H Calcium Phosphorus Magnesium Total Creatine Kinase CK-MB (CK-2) Rel Index Troponin T C-Reactive Protein Total Protein Albumin LDL Cholesterol Direct Urine WBC (Auto) 04/09/22 04/09/22 04/09/22 13:00 17:32 23:48 WBC RBC Hgb Hct MCV Plt Count Lymph % (Auto) [place] % (Auto) Lymph # (Auto) [place] # (Auto) Seg Neutrophils % Seg Neuts % (Manual) Lymphocytes % (Manual) Seg Neutrophils # Seg Neutrophils # Man Lymphocytes # (Manual) PT INR ABG pH ABG pO2 66.6 L ABG HCO3 38.2 H ABG O2 Saturation 94.4 L ABG Base Excess 10.7 H ABG Hemoglobin 10.7 L Oxyhemoglobin 92.8 L Sodium Potassium Chloride Carbon Dioxide BUN Creatinine Glucose POC Glucose 143 H 114 H Calcium Phosphorus Magnesium Total Creatine Kinase CK-MB (CK-2) Rel Index Troponin T C-Reactive Protein Total Protein Albumin LDL Cholesterol Direct Urine WBC (Auto) 04/10/22 04/10/22 04/10/22 04:48 04:48 05:34 WBC RBC 2.91 L Hgb 9.1 L Hct 27.7 L MCV 95 H Plt Count Lymph % (Auto) [place] % (Auto) Lymph # (Auto) [place] # (Auto) Seg Neutrophils % Seg Neuts % (Manual) Lymphocytes % (Manual) Seg Neutrophils # Seg Neutrophils # Man Lymphocytes # (Manual) PT INR ABG pH ABG pO2 ABG HCO3 ABG O2 Saturation ABG Base Excess ABG Hemoglobin Oxyhemoglobin Sodium Potassium Chloride 95.7 L Carbon Dioxide 38 H BUN Creatinine < 0.2 L Glucose 118 H POC Glucose 127 H Calcium Phosphorus Magnesium Total Creatine Kinase CK-MB (CK-2) Rel Index Troponin T C-Reactive Protein Total Protein Albumin LDL Cholesterol Direct Urine WBC (Auto) 04/10/22 04/11/22 04/11/22 23:10 04:15 04:15 WBC 17.2 H RBC 2.98 L Hgb 9.2 L Hct 27.9 L MCV Plt Count Lymph % (Auto) [place] % (Auto) Lymph # (Auto) [place] # (Auto) Seg Neutrophils % Seg Neuts % (Manual) Lymphocytes % (Manual) Seg Neutrophils # Seg Neutrophils # Man Lymphocytes # (Manual) PT INR ABG pH ABG pO2 ABG HCO3 ABG O2 Saturation ABG Base Excess ABG Hemoglobin Oxyhemoglobin Sodium Potassium Chloride 96.1 L Carbon Dioxide 35 H BUN Creatinine < 0.2 L Glucose 138 H POC Glucose 106 H Calcium 8.3 L Phosphorus Magnesium Total Creatine Kinase CK-MB (CK-2) Rel Index Troponin T C-Reactive Protein Total Protein Albumin LDL Cholesterol Direct Urine WBC (Auto) 04/11/22 04/11/22 04/11/22 05:31 13:18 16:20 WBC RBC Hgb Hct MCV Plt Count Lymph % (Auto) [place] % (Auto) Lymph # (Auto) [place] # (Auto) Seg Neutrophils % Seg Neuts % (Manual) Lymphocytes % (Manual) Seg Neutrophils # Seg Neutrophils # Man Lymphocytes # (Manual) PT INR ABG pH ABG pO2 57.8 L ABG HCO3 40.5 H ABG O2 Saturation 90.6 L ABG Base Excess 12.6 H ABG Hemoglobin 10.5 L Oxyhemoglobin 89.0 L Sodium Potassium Chloride Carbon Dioxide BUN Creatinine Glucose POC Glucose 129 H 132 H Calcium Phosphorus Magnesium Total Creatine Kinase CK-MB (CK-2) Rel Index Troponin T C-Reactive Protein Total Protein Albumin LDL Cholesterol Direct Urine WBC (Auto) 04/11/22 04/11/22 04/12/22 17:29 23:17 04:00 WBC 17.4 H RBC 2.96 L Hgb 9.0 L Hct 28.0 L MCV 95 H Plt Count Lymph % (Auto) [place] % (Auto) Lymph # (Auto) [place] # (Auto) Seg Neutrophils % Seg Neuts % (Manual) Lymphocytes % (Manual) Seg Neutrophils # Seg Neutrophils # Man Lymphocytes # (Manual) PT INR ABG pH ABG pO2 ABG HCO3 ABG O2 Saturation ABG Base Excess ABG Hemoglobin Oxyhemoglobin Sodium Potassium Chloride Carbon Dioxide BUN Creatinine Glucose POC Glucose 125 H 151 H Calcium Phosphorus Magnesium Total Creatine Kinase CK-MB (CK-2) Rel Index Troponin T C-Reactive Protein Total Protein Albumin LDL Cholesterol Direct Urine WBC (Auto) 04/12/22 04/12/22 04/12/22 04:00 17:03 23:39 WBC RBC Hgb Hct MCV Plt Count Lymph % (Auto) [place] % (Auto) Lymph # (Auto) [place] # (Auto) Seg Neutrophils % Seg Neuts % (Manual) Lymphocytes % (Manual) Seg Neutrophils # Seg Neutrophils # Man Lymphocytes # (Manual) PT INR ABG pH ABG pO2 ABG HCO3 ABG O2 Saturation ABG Base Excess ABG Hemoglobin Oxyhemoglobin Sodium Potassium Chloride 97.4 L Carbon Dioxide 37 H BUN Creatinine < 0.2 L Glucose 127 H POC Glucose 106 H 107 H Calcium Phosphorus Magnesium Total Creatine Kinase CK-MB (CK-2) Rel Index Troponin T C-Reactive Protein Total Protein Albumin LDL Cholesterol Direct Urine WBC (Auto) 04/13/22 04/13/22 04/13/22 04:30 04:30 17:39 WBC 14.1 H RBC 2.66 L Hgb 8.4 L Hct 25.5 L MCV 96 H Plt Count Lymph % (Auto) [place] % (Auto) Lymph # (Auto) [place] # (Auto) Seg Neutrophils % Seg Neuts % (Manual) Lymphocytes % (Manual) Seg Neutrophils # Seg Neutrophils # Man Lymphocytes # (Manual) PT INR ABG pH ABG pO2 ABG HCO3 ABG O2 Saturation ABG Base Excess ABG Hemoglobin Oxyhemoglobin Sodium Potassium Chloride 93.9 L Carbon Dioxide 39 H BUN Creatinine < 0.2 L Glucose POC Glucose 134 H Calcium Phosphorus 1.90 L Magnesium Total Creatine Kinase CK-MB (CK-2) Rel Index Troponin T C-Reactive Protein Total Protein Albumin LDL Cholesterol Direct Urine WBC (Auto) 04/14/22 04/14/22 04/14/22 05:03 05:03 09:10 WBC 15.6 H RBC 3.02 L Hgb 9.3 L Hct 28.8 L MCV 95 H Plt Count Lymph % (Auto) [place] % (Auto) Lymph # (Auto) [place] # (Auto) Seg Neutrophils % Seg Neuts % (Manual) Lymphocytes % (Manual) Seg Neutrophils # Seg Neutrophils # Man Lymphocytes # (Manual) PT INR ABG pH ABG pO2 66.9 L ABG HCO3 44.5 H ABG O2 Saturation ABG Base Excess 17.2 H ABG Hemoglobin 8.1 L Oxyhemoglobin 94.8 L Sodium Potassium Chloride 93.8 L Carbon Dioxide 42 H* BUN Creatinine < 0.2 L Glucose 117 H POC Glucose Calcium Phosphorus Magnesium Total Creatine Kinase CK-MB (CK-2) Rel Index Troponin T C-Reactive Protein Total Protein Albumin LDL Cholesterol Direct Urine WBC (Auto) 04/15/22 04/15/22 04/16/22 04:44 04:44 04:16 WBC 13.0 H 12.6 H RBC 3.19 L 3.09 L Hgb 9.6 L 9.5 L Hct 30.2 L 29.1 L MCV 95 H Plt Count 456 H Lymph % (Auto) [place] % (Auto) Lymph # (Auto) [place] # (Auto) Seg Neutrophils % Seg Neuts % (Manual) Lymphocytes % (Manual) Seg Neutrophils # Seg Neutrophils # Man Lymphocytes # (Manual) PT INR ABG pH ABG pO2 ABG HCO3 ABG O2 Saturation ABG Base Excess ABG Hemoglobin Oxyhemoglobin Sodium Potassium Chloride 95.5 L Carbon Dioxide 37 H BUN Creatinine < 0.2 L Glucose POC Glucose Calcium Phosphorus Magnesium Total Creatine Kinase CK-MB (CK-2) Rel Index Troponin T C-Reactive Protein Total Protein Albumin LDL Cholesterol Direct Urine WBC (Auto) 04/16/22 04/16/22 04/16/22 04:16 05:00 14:00 WBC RBC Hgb Hct MCV Plt Count Lymph % (Auto) [place] % (Auto) Lymph # (Auto) [place] # (Auto) Seg Neutrophils % Seg Neuts % (Manual) Lymphocytes % (Manual) Seg Neutrophils # Seg Neutrophils # Man Lymphocytes # (Manual) PT INR ABG pH 7.324 L ABG pO2 55.6 L ABG HCO3 45.3 H ABG O2 Saturation 87.1 L ABG Base Excess 16.6 H ABG Hemoglobin 8.6 L Oxyhemoglobin 85.7 L Sodium Potassium Chloride 97.6 L Carbon Dioxide 36 H BUN Creatinine < 0.2 L Glucose 109 H POC Glucose 120 H Calcium Phosphorus Magnesium Total Creatine Kinase CK-MB (CK-2) Rel Index Troponin T C-Reactive Protein Total Protein Albumin LDL Cholesterol Direct Urine WBC (Auto) 04/17/22 04/17/22 04/17/22 04:36 04:36 04:57 WBC 14.4 H RBC 3.08 L Hgb 9.4 L Hct 29.0 L MCV Plt Count Lymph % (Auto) [place] % (Auto) Lymph # (Auto) [place] # (Auto) Seg Neutrophils % Seg Neuts % (Manual) Lymphocytes % (Manual) Seg Neutrophils # Seg Neutrophils # Man Lymphocytes # (Manual) PT INR ABG pH ABG pO2 ABG HCO3 ABG O2 Saturation ABG Base Excess ABG Hemoglobin Oxyhemoglobin Sodium Potassium Chloride 95.9 L Carbon Dioxide 39 H BUN Creatinine < 0.2 L Glucose 140 H POC Glucose 137 H Calcium 8.3 L Phosphorus Magnesium Total Creatine Kinase CK-MB (CK-2) Rel Index Troponin T C-Reactive Protein Total Protein Albumin LDL Cholesterol Direct Urine WBC (Auto) 04/17/22 04/17/22 04/18/22 09:15 18:01 04:20 WBC 11.2 H RBC 3.00 L Hgb 9.3 L Hct 28.6 L MCV 95 H Plt Count Lymph % (Auto) [place] % (Auto) Lymph # (Auto) [place] # (Auto) Seg Neutrophils % Seg Neuts % (Manual) Lymphocytes % (Manual) Seg Neutrophils # Seg Neutrophils # Man Lymphocytes # (Manual) PT INR ABG pH 7.345 L ABG pO2 ABG HCO3 48.2 H ABG O2 Saturation ABG Base Excess 19.2 H ABG Hemoglobin 9.7 L Oxyhemoglobin Sodium Potassium Chloride Carbon Dioxide BUN Creatinine Glucose POC Glucose 129 H Calcium Phosphorus Magnesium Total Creatine Kinase CK-MB (CK-2) Rel Index Troponin T C-Reactive Protein Total Protein Albumin LDL Cholesterol Direct Urine WBC (Auto) 04/18/22 04/18/22 04/18/22 04:20 17:35 23:50 WBC RBC Hgb Hct MCV Plt Count Lymph % (Auto) [place] % (Auto) Lymph # (Auto) [place] # (Auto) Seg Neutrophils % Seg Neuts % (Manual) Lymphocytes % (Manual) Seg Neutrophils # Seg Neutrophils # Man Lymphocytes # (Manual) PT INR ABG pH ABG pO2 ABG HCO3 ABG O2 Saturation ABG Base Excess ABG Hemoglobin Oxyhemoglobin Sodium Potassium Chloride 96.8 L Carbon Dioxide 43 H* BUN 22 H Creatinine < 0.2 L Glucose 137 H POC Glucose 128 H 123 H Calcium 8.2 L Phosphorus Magnesium Total Creatine Kinase CK-MB (CK-2) Rel Index Troponin T C-Reactive Protein Total Protein Albumin LDL Cholesterol Direct Urine WBC (Auto) 04/19/22 04/19/22 04/19/22 04:08 04:08 08:50 WBC 16.8 H RBC 3.18 L Hgb 9.8 L Hct 30.1 L MCV 95 H Plt Count Lymph % (Auto) [place] % (Auto) Lymph # (Auto) [place] # (Auto) Seg Neutrophils % Seg Neuts % (Manual) Lymphocytes % (Manual) Seg Neutrophils # Seg Neutrophils # Man Lymphocytes # (Manual) PT INR ABG pH ABG pO2 56.0 L ABG HCO3 47.1 H ABG O2 Saturation 93.3 L ABG Base Excess 20.1 H ABG Hemoglobin 8.0 L Oxyhemoglobin 91.8 L Sodium Potassium Chloride 96.2 L Carbon Dioxide 40 H BUN 24 H Creatinine < 0.2 L Glucose 125 H POC Glucose Calcium 8.3 L Phosphorus Magnesium Total Creatine Kinase CK-MB (CK-2) Rel Index Troponin T C-Reactive Protein Total Protein Albumin LDL Cholesterol Direct Urine WBC (Auto) 04/19/22 04/20/22 04/20/22 12:02 00:40 04:49 WBC 14.7 H RBC 3.36 L Hgb 10.3 L Hct 32.0 L MCV 95 H Plt Count Lymph % (Auto) [place] % (Auto) Lymph # (Auto) [place] # (Auto) Seg Neutrophils % Seg Neuts % (Manual) Lymphocytes % (Manual) Seg Neutrophils # Seg Neutrophils # Man Lymphocytes # (Manual) PT INR ABG pH ABG pO2 ABG HCO3 ABG O2 Saturation ABG Base Excess ABG Hemoglobin Oxyhemoglobin Sodium Potassium Chloride Carbon Dioxide BUN Creatinine Glucose POC Glucose 124 H 140 H Calcium Phosphorus Magnesium Total Creatine Kinase CK-MB (CK-2) Rel Index Troponin T C-Reactive Protein Total Protein Albumin LDL Cholesterol Direct Urine WBC (Auto) 04/20/22 04/20/22 04/21/22 05:36 11:40 04:05 WBC RBC Hgb Hct MCV Plt Count Lymph % (Auto) [place] % (Auto) Lymph # (Auto) [place] # (Auto) Seg Neutrophils % Seg Neuts % (Manual) Lymphocytes % (Manual) Seg Neutrophils # Seg Neutrophils # Man Lymphocytes # (Manual) PT INR ABG pH ABG pO2 ABG HCO3 ABG O2 Saturation ABG Base Excess ABG Hemoglobin Oxyhemoglobin Sodium Potassium Chloride 93.4 L Carbon Dioxide 40 H BUN 25 H Creatinine < 0.2 L Glucose 122 H POC Glucose 125 H 128 H Calcium Phosphorus Magnesium Total Creatine Kinase CK-MB (CK-2) Rel Index Troponin T C-Reactive Protein Total Protein Albumin LDL Cholesterol Direct Urine WBC (Auto) 04/21/22 04/22/22 04/22/22 10:31 05:03 05:03 WBC 12.6 H 12.7 H RBC 2.83 L 2.96 L Hgb 8.6 L 9.0 L Hct 26.9 L 28.0 L MCV 95 H 95 H Plt Count Lymph % (Auto) [place] % (Auto) Lymph # (Auto) [place] # (Auto) Seg Neutrophils % Seg Neuts % (Manual) Lymphocytes % (Manual) Seg Neutrophils # Seg Neutrophils # Man Lymphocytes # (Manual) PT INR ABG pH ABG pO2 ABG HCO3 ABG O2 Saturation ABG Base Excess ABG Hemoglobin Oxyhemoglobin Sodium Potassium Chloride 93.9 L Carbon Dioxide 43 H* BUN 23 H Creatinine < 0.2 L Glucose 137 H POC Glucose Calcium Phosphorus Magnesium Total Creatine Kinase CK-MB (CK-2) Rel Index Troponin T C-Reactive Protein Total Protein Albumin LDL Cholesterol Direct Urine WBC (Auto) 04/22/22 04/23/22 04/24/22 08:34 09:40 04:29 WBC 14.4 H RBC 2.74 L Hgb 8.4 L Hct 25.7 L MCV Plt Count Lymph % (Auto) [place] % (Auto) Lymph # (Auto) [place] # (Auto) Seg Neutrophils % Seg Neuts % (Manual) Lymphocytes % (Manual) Seg Neutrophils # Seg Neutrophils # Man Lymphocytes # (Manual) PT INR ABG pH ABG pO2 54.1 L 56.8 L ABG HCO3 48.5 H 49.0 H ABG O2 Saturation 92.1 L 90.9 L ABG Base Excess 20.9 H 20.8 H ABG Hemoglobin 9.0 L 8.4 L Oxyhemoglobin 90.6 L 89.5 L Sodium Potassium Chloride Carbon Dioxide BUN Creatinine Glucose POC Glucose Calcium Phosphorus Magnesium Total Creatine Kinase CK-MB (CK-2) Rel Index Troponin T C-Reactive Protein Total Protein Albumin LDL Cholesterol Direct Urine WBC (Auto) 04/24/22 04/25/22 04/26/22 04:29 09:00 04:22 WBC RBC 2.88 L Hgb 8.9 L Hct 26.8 L MCV Plt Count Lymph % (Auto) [place] % (Auto) Lymph # (Auto) [place] # (Auto) Seg Neutrophils % Seg Neuts % (Manual) Lymphocytes % (Manual) Seg Neutrophils # Seg Neutrophils # Man Lymphocytes # (Manual) PT INR ABG pH 7.457 H ABG pO2 66.7 L ABG HCO3 42.6 H ABG O2 Saturation ABG Base Excess 15.3 H ABG Hemoglobin 8.8 L Oxyhemoglobin 94.1 L Sodium Potassium Chloride 90.7 L Carbon Dioxide 40 H BUN Creatinine < 0.2 L Glucose 133 H POC Glucose Calcium Phosphorus Magnesium Total Creatine Kinase CK-MB (CK-2) Rel Index Troponin T C-Reactive Protein Total Protein Albumin LDL Cholesterol Direct Urine WBC (Auto) 04/26/22 04/29/22 04/29/22 04:22 04:18 04:18 WBC 13.5 H RBC 2.96 L Hgb 8.9 L Hct 27.7 L MCV Plt Count Lymph % (Auto) [place] % (Auto) Lymph # (Auto) [place] # (Auto) Seg Neutrophils % Seg Neuts % (Manual) Lymphocytes % (Manual) Seg Neutrophils # Seg Neutrophils # Man Lymphocytes # (Manual) PT INR ABG pH ABG pO2 ABG HCO3 ABG O2 Saturation ABG Base Excess ABG Hemoglobin Oxyhemoglobin Sodium Potassium Chloride 93.2 L 95.2 L Carbon Dioxide 37 H 38 H BUN Creatinine < 0.2 L < 0.2 L Glucose 114 H 116 H POC Glucose Calcium Phosphorus Magnesium Total Creatine Kinase CK-MB (CK-2) Rel Index Troponin T C-Reactive Protein Total Protein Albumin LDL Cholesterol Direct Urine WBC (Auto) 05/02/22 04:29 WBC 12.9 H RBC 2.82 L Hgb 8.4 L Hct 26.2 L MCV Plt Count Lymph % (Auto) [place] % (Auto) Lymph # (Auto) [place] # (Auto) Seg Neutrophils % Seg Neuts % (Manual) Lymphocytes % (Manual) Seg Neutrophils # Seg Neutrophils # Man Lymphocytes # (Manual) PT INR ABG pH ABG pO2 ABG HCO3 ABG O2 Saturation ABG Base Excess ABG Hemoglobin Oxyhemoglobin Sodium Potassium Chloride Carbon Dioxide BUN Creatinine Glucose POC Glucose Calcium Phosphorus Magnesium Total Creatine Kinase CK-MB (CK-2) Rel Index Troponin T C-Reactive Protein Total Protein Albumin LDL Cholesterol Direct Urine WBC (Auto) Allied health notes reviewed: RT
[2022-05-03] MEDS: METOPROLOL TARTRATE 25 MG TAB FEEDTUBE SCH ×5 (00:01→23:13)
[2022-05-03] MEDS: ALBUTEROL 2.5 MG/3 ML NEBU IH SCH ×3 (00:33→16:49)
[2022-05-03] MEDS: ACETYLCYSTEINE 20% 200 MG/1 ML *FOR INHALATION USE INHALATION SCH ×3 (00:34→16:49)
[2022-05-03] MEDS: ACETAMINOPHEN 325 MG TAB PO PRN ×3 (02:34→20:51)
--- NOTE | 2022-05-03 02:51 | XRay Report ---
CHEST 1 VIEW 05/03/2022 1:39 AM INDICATION / CLINICAL INFORMATION: F/U respiratory failure. COMPARISON: 04/24/2022 FINDINGS: SUPPORT DEVICES: Unchanged. HEART / MEDIASTINUM: Stable. LUNGS / PLEURA: Mild improvement in airspace and interstitial opacity. No pneumothorax. ADDITIONAL FINDINGS: No significant additional findings. IMPRESSION: 1. Interval improvement. Signer Name: Jamarcus Welch DO Signed: 05/03/2022 2:47 AM Workstation Name: [id number]
[2022-05-03 04:44] LABS: Hemoglobin 8.4 gm/dl (11.8-15.2); Mean Corpuscular HGB Conc 32 % (32-34); Mean Corpuscular Volume 92 fl (84-94); Platelet Count 329 K/mm3 (140-440); Red Blood Count 2.83 M/mm3 (3.65-5.03)
[2022-05-03 05:03] LABS: Blood Urea Nitrogen 21 mg/dL (9-20); Calcium 8.9 mg/dL (8.4-10.2); Hemolysis Index 6
[2022-05-03 05:05] LABS: BUN/Creatinine Ratio 105
[2022-05-03] MEDS: INSULIN REGULAR, HUMAN 100 UNITS/1 ML SUB-Q SCH ×3 (05:14→18:12)
[2022-05-03] MEDS: HEPARIN 5,000 UNIT/1 ML VIAL SUB-Q SCH ×3 (05:16→21:00)
[2022-05-03] MEDS: QUEtiapine 25 MG TAB FEEDTUBE SCH ×2 (09:47→21:00)
[2022-05-03] MEDS: POLYETHYLENE GLYCOL 3350 17 GM POWDER PO SCH (09:47)
[2022-05-03] MEDS: FAMOTIDINE 20 MG TAB FEEDTUBE SCH ×2 (09:48→21:00)
[2022-05-03] MEDS: SENNOSIDES ORAL LIQD 8.8 MG/5 ML ORAL LIQD FEEDTUBE SCH ×2 (09:48→21:00)
[2022-05-03] MEDS: DOCUSATE SODIUM 100 MG/10 ML ORAL LIQD FEEDTUBE SCH ×2 (09:49→20:59)
--- NOTE | 2022-05-03 12:49 | Progress Note ---
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 Protein calorie malnutrition Acute Bronchopneumonia HCAP Hypotension NSTEMI Hypernatremia Acute Metabolic Encephalopathy H/o Amyotrophic Lateral Sclerosis Nonverbal at Baseline Thrombocytopenia Protein Caloric Malnutrition Constipation - care plan discussed with patient and family in room - continue daily SAT and SBT assessment as tolerated - continue care as below otherwise; - bronchoscopy if develops large volume atelectasis - continue mucomyst nebs for thick tenacious secretions - continue scheduled CPT - continue Seroquel for anxiolysis / delirium - continue bronchodilators with pulmonary hygiene per RT - continue to wean supplemental oxygen for target O2 sat's > 90% acutely - VAP bundle addressed - continue lung protective strategies - wean per pulmonary driven protocols otherwise - continue accuchecks with glycemic control per SSI (While critically ill target blood glucose of 140-180 mg/dL; avoid hypoglycemia) - sedation prn for target RASS 0 to -1 - avoid nephrotoxins, renally dose all medications - continue to avoid benzodiazepine's, reduce the possibility of delirium - AB's per ID rec's - prn analgesia per CPOT score - Maintenance of sleep-wake cycle, avoid delirium - continue enteral nutritional support at goal rate as tolerated - G.I. & VTE prophylaxis - PT/OT/ROM exercises - continue mobility protocols for pressure ulcer prophylaxis - Monitor hemodynamics closely - continue other care per attending / other consultants - discharge planning ongoing concurrently COVID SPECIFIC INTERVENTIONS - test pending .... Re-evaluate in am & prn CONDITION: CRITICAL PROGNOSIS: GUARDED CODE STATUS: FULL CODE The high probability of a clinically significant, sudden or life-threatening deterioration of the [respiratory, cardiovascular & neurologic] system(s) required my full and direct attention, intervention and personal management. The aggregate critical care time was [32] minutes without overlap. Time includes spent on; [x] Data Review and interpretation [x] Patient assessment and monitoring of vital signs [x] Documentation [x] Medication orders and management Subjective Date of service: 05/03/22 Principal diagnosis: Ac and ch hypercapnic and hypoxemic Resp Failure; ALS; HCAP; Sepsis; NSTEMI Interval history: Patient is seen today for: Acute and chronic hypercapnic and hypoxemic Respiratory Failure; ALS; HCAP; Sepsis; NSTEMI; AMS; Hypernatremia; Throm bocytopenia; Protein Caloric Malnutrition; Constipation Seen and examined at bedside; 24hour events reviewed; nursing and respiratory care staff consulted; no adverse overnight events reported to me; resting peacefully in bed; remains on MVS; discharge planning ongoing concurrently; LTAC denied; family considering home ventilator; no emesis or overt aspiration Objective Vital Signs - 12hr 05/03/22 05/03/22 05/03/22 01:00 02:00 02:35 Temperature 99.5 F Pulse Rate 92 H 104 H Pulse Rate [ Bilateral Throughout] Pulse Rate [ From Monitor] Respiratory 14 14 Rate Respiratory Rate [Bilateral Throughout] Blood Pressure 102/69 109/70 O2 Sat by Pulse 95 97 Oximetry O2 Sat by Pulse Oximetry [ Assessment] 05/03/22 05/03/22 05/03/22 03:00 03:29 04:00 Temperature 98.3 F Pulse Rate 103 H 105 H 103 H Pulse Rate [ Bilateral Throughout] Pulse Rate [ From Monitor] Respiratory 16 14 Rate Respiratory Rate [Bilateral Throughout] Blood Pressure 105/64 109/64 O2 Sat by Pulse 95 93 97 Oximetry O2 Sat by Pulse Oximetry [ Assessment] 05/03/22 05/03/22 05/03/22 04:42 04:45 05:00 Temperature Pulse Rate 104 H 102 H Pulse Rate [ Bilateral Throughout] Pulse Rate [ From Monitor] Respiratory 14 Rate Respiratory Rate [Bilateral Throughout] Blood Pressure 108/68 104/65 O2 Sat by Pulse 96 95 Oximetry O2 Sat by Pulse 96 Oximetry [ Assessment] 05/03/22 05/03/22 05/03/22 06:00 07:00 08:00 Temperature 100.3 F H Pulse Rate 111 H 101 H 99 H Pulse Rate [ Bilateral Throughout] Pulse Rate [ From Monitor] Respiratory 19 24 14 Rate Respiratory Rate [Bilateral Throughout] Blood Pressure 108/75 110/66 124/78 O2 Sat by Pulse 96 94 99 Oximetry O2 Sat by Pulse Oximetry [ Assessment] 05/03/22 05/03/22 05/03/22 08:24 08:25 08:55 Temperature Pulse Rate 113 H Pulse Rate [ 112 H Bilateral Throughout] Pulse Rate [ From Monitor] Respiratory Rate Respiratory 14 Rate [Bilateral Throughout] Blood Pressure 124/78 O2 Sat by Pulse 95 Oximetry O2 Sat by Pulse 95 Oximetry [ Assessment] 05/03/22 05/03/22 05/03/22 09:00 10:00 11:00 Temperature Pulse Rate 113 H 116 H 119 H Pulse Rate [ Bilateral Throughout] Pulse Rate [ From Monitor] Respiratory 14 20 14 Rate Respiratory Rate [Bilateral Throughout] Blood Pressure 98/61 108/77 92/53 O2 Sat by Pulse 97 99 100 Oximetry O2 Sat by Pulse Oximetry [ Assessment] 05/03/22 05/03/22 12:00 12:20 Temperature 100 F H Pulse Rate 118 H 121 H Pulse Rate [ Bilateral Throughout] Pulse Rate [ 121 H From Monitor] Respiratory 17 Rate Respiratory Rate [Bilateral Throughout] Blood Pressure 113/70 113/70 O2 Sat by Pulse 95 96 Oximetry O2 Sat by Pulse Oximetry [ Assessment] Constitutional: alert, appears uncomfortable, other (resting in bed with mildly increased respiratory effort at rest) Eyes: non-icteric ENT: oropharynx moist, other (+ midline tracheostomy) Neck: supple, no lymphadenopathy, no JVD Effort: mildly labored Ascultation: Bilateral: diminished breath sounds (bases), rhonchi Percussion: Bilateral: not dull Cardiovascular: regular rate and rhythm, other (S1,S2) Gastrointestinal: normoactive bowel sounds, soft, non-tender, non-distended Integumentary: normal Extremities: no cyanosis, no edema, pink and warm, pulses normal Neurologic: pupils equal and round, other (functional quadriplegia) Psychiatric: anxious (affect), other CBC and BMP: 05/03/22 04:02 05/03/22 04:02 ABG, PT/INR, D-dimer: ABG ABG pH 7.457 pH Units (7.350-7.450) H 04/25/22 09:00 ABG pCO2 61.7 mm Hg 04/25/22 09:00 ABG pO2 66.7 mm Hg (80.0-90.0) L 04/25/22 09:00 ABG O2 Saturation 95.7 % (95.0-99.0) 04/25/22 09:00 PT/INR, D-dimer PT 13.6 Sec. (12.2-14.9) 04/13/22 04:30 INR 0.94 (0.87-1.13) 04/13/22 04:30 Abnormal lab findings: Abnormal Labs 04/02/22 04/02/22 04/02/22 19:39 19:39 19:39 WBC 14.3 H RBC Hgb Hct MCV 96 H Plt Count 104 L Lymph % (Auto) [place] % (Auto) Lymph # (Auto) [place] # (Auto) Seg Neutrophils % Seg Neuts % (Manual) 94.0 H Lymphocytes % (Manual) 1.0 L Seg Neutrophils # Seg Neutrophils # Man 13.4 H Lymphocytes # (Manual) 0.1 L PT 15.9 H INR 1.14 H ABG pH ABG pO2 ABG HCO3 ABG O2 Saturation ABG Base Excess ABG Hemoglobin Oxyhemoglobin Sodium 151 H Potassium Chloride Carbon Dioxide BUN Creatinine 0.5 L Glucose POC Glucose Calcium 8.2 L Phosphorus Magnesium 1.60 L Total Creatine Kinase CK-MB (CK-2) Rel Index Troponin T 0.048 H C-Reactive Protein Total Protein 4.6 L Albumin 2.7 L LDL Cholesterol Direct 27 L Urine WBC (Auto) 04/02/22 04/03/22 04/03/22 19:42 05:14 06:30 WBC RBC Hgb Hct MCV Plt Count Lymph % (Auto) [place] % (Auto) Lymph # (Auto) [place] # (Auto) Seg Neutrophils % Seg Neuts % (Manual) Lymphocytes % (Manual) Seg Neutrophils # Seg Neutrophils # Man Lymphocytes # (Manual) PT INR ABG pH 7.471 H 7.496 H ABG pO2 47.8 L 91.0 H ABG HCO3 30.6 H ABG O2 Saturation 94.4 L ABG Base Excess 6.2 H ABG Hemoglobin 11.0 L 12.8 L Oxyhemoglobin 93.1 L Sodium 149 H Potassium 3.4 L Chloride Carbon Dioxide BUN Creatinine 0.4 L Glucose POC Glucose Calcium Phosphorus Magnesium Total Creatine Kinase CK-MB (CK-2) Rel Index Troponin T C-Reactive Protein Total Protein Albumin LDL Cholesterol Direct Urine WBC (Auto) 04/04/22 04/04/22 04/04/22 04:18 04:18 05:50 WBC 11.8 H RBC Hgb Hct MCV Plt Count 132 L Lymph % (Auto) [place] % (Auto) Lymph # (Auto) [place] # (Auto) Seg Neutrophils % Seg Neuts % (Manual) Lymphocytes % (Manual) Seg Neutrophils # Seg Neutrophils # Man Lymphocytes # (Manual) PT INR ABG pH 7.517 H ABG pO2 115.5 H ABG HCO3 29.9 H ABG O2 Saturation ABG Base Excess 6.7 H ABG Hemoglobin 12.3 L Oxyhemoglobin Sodium Potassium 3.5 L Chloride Carbon Dioxide 31 H BUN Creatinine 0.3 L Glucose 153 H POC Glucose Calcium Phosphorus 1.40 L Magnesium 1.50 L Total Creatine Kinase CK-MB (CK-2) Rel Index Troponin T C-Reactive Protein 31.60 H Total Protein Albumin LDL Cholesterol Direct Urine WBC (Auto) 04/05/22 04/05/22 04/05/22 02:50 05:25 11:28 WBC RBC Hgb Hct MCV Plt Count Lymph % (Auto) [place] % (Auto) Lymph # (Auto) [place] # (Auto) Seg Neutrophils % Seg Neuts % (Manual) Lymphocytes % (Manual) Seg Neutrophils # Seg Neutrophils # Man Lymphocytes # (Manual) PT INR ABG pH 7.455 H ABG pO2 50.7 L ABG HCO3 30.5 H ABG O2 Saturation 89.4 L ABG Base Excess 5.9 H ABG Hemoglobin 11.8 L Oxyhemoglobin 88.2 L Sodium Potassium Chloride Carbon Dioxide 32 H BUN Creatinine 0.2 L Glucose 110 H POC Glucose 124 H Calcium 7.9 L Phosphorus Magnesium Total Creatine Kinase CK-MB (CK-2) Rel Index Troponin T C-Reactive Protein Total Protein Albumin LDL Cholesterol Direct Urine WBC (Auto) 04/05/22 04/05/22 04/06/22 17:45 Unknown 04:00 WBC RBC 3.55 L Hgb 11.1 L 11.5 L Hct 33.2 L 35.1 L MCV Plt Count 113 L 114 L Lymph % (Auto) [place] % (Auto) Lymph # (Auto) [place] # (Auto) Seg Neutrophils % Seg Neuts % (Manual) Lymphocytes % (Manual) Seg Neutrophils # Seg Neutrophils # Man Lymphocytes # (Manual) PT INR ABG pH ABG pO2 ABG HCO3 ABG O2 Saturation ABG Base Excess ABG Hemoglobin Oxyhemoglobin Sodium Potassium Chloride Carbon Dioxide BUN Creatinine Glucose POC Glucose Calcium Phosphorus Magnesium Total Creatine Kinase CK-MB (CK-2) Rel Index Troponin T C-Reactive Protein Total Protein Albumin LDL Cholesterol Direct Urine WBC (Auto) 8.0 H 04/06/22 04/06/22 04/07/22 04:00 08:30 00:04 WBC RBC Hgb Hct MCV Plt Count Lymph % (Auto) [place] % (Auto) Lymph # (Auto) [place] # (Auto) Seg Neutrophils % Seg Neuts % (Manual) Lymphocytes % (Manual) Seg Neutrophils # Seg Neutrophils # Man Lymphocytes # (Manual) PT INR ABG pH ABG pO2 60.8 L ABG HCO3 30.5 H ABG O2 Saturation 93.3 L ABG Base Excess 4.9 H ABG Hemoglobin 12.4 L Oxyhemoglobin 92.1 L Sodium Potassium 3.0 L Chloride Carbon Dioxide BUN Creatinine < 0.2 L Glucose 130 H POC Glucose 117 H Calcium 8.1 L Phosphorus Magnesium Total Creatine Kinase CK-MB (CK-2) Rel Index Troponin T C-Reactive Protein Total Protein Albumin LDL Cholesterol Direct Urine WBC (Auto) 04/07/22 04/07/22 04/07/22 03:51 03:51 03:51 WBC 14.6 H RBC 3.57 L Hgb 11.1 L Hct 33.2 L MCV Plt Count 118 L Lymph % (Auto) 4.3 L [place] % (Auto) 8.8 H Lymph # (Auto) 0.6 L [place] # (Auto) 1.3 H Seg Neutrophils % 86.6 H Seg Neuts % (Manual) Lymphocytes % (Manual) Seg Neutrophils # 12.7 H Seg Neutrophils # Man Lymphocytes # (Manual) PT 15.2 H INR ABG pH ABG pO2 ABG HCO3 ABG O2 Saturation ABG Base Excess ABG Hemoglobin Oxyhemoglobin Sodium 133 L Potassium Chloride 96.0 L Carbon Dioxide 31 H BUN Creatinine 0.2 L Glucose 130 H POC Glucose Calcium 8.0 L Phosphorus Magnesium Total Creatine Kinase CK-MB (CK-2) Rel Index Troponin T C-Reactive Protein Total Protein Albumin LDL Cholesterol Direct Urine WBC (Auto) 04/07/22 04/07/22 04/08/22 04:25 09:10 04:49 WBC 16.1 H RBC 3.54 L Hgb 10.9 L Hct 33.3 L MCV Plt Count Lymph % (Auto) [place] % (Auto) Lymph # (Auto) [place] # (Auto) Seg Neutrophils % Seg Neuts % (Manual) Lymphocytes % (Manual) Seg Neutrophils # Seg Neutrophils # Man Lymphocytes # (Manual) PT INR ABG pH ABG pO2 71.0 L 63.4 L ABG HCO3 31.5 H 40.0 H ABG O2 Saturation 94.9 L ABG Base Excess 5.9 H 13.6 H ABG Hemoglobin 11.3 L 9.0 L Oxyhemoglobin 93.6 L Sodium Potassium Chloride Carbon Dioxide BUN Creatinine Glucose POC Glucose Calcium Phosphorus Magnesium Total Creatine Kinase CK-MB (CK-2) Rel Index Troponin T C-Reactive Protein Total Protein Albumin LDL Cholesterol Direct Urine WBC (Auto) 04/08/22 04/08/22 04/08/22 04:49 09:53 10:25 WBC RBC Hgb Hct MCV Plt Count Lymph % (Auto) [place] % (Auto) Lymph # (Auto) [place] # (Auto) Seg Neutrophils % Seg Neuts % (Manual) Lymphocytes % (Manual) Seg Neutrophils # Seg Neutrophils # Man Lymphocytes # (Manual) PT INR ABG pH ABG pO2 ABG HCO3 34.7 H ABG O2 Saturation ABG Base Excess 7.9 H ABG Hemoglobin 11.0 L Oxyhemoglobin Sodium 136 L Potassium Chloride 97.7 L Carbon Dioxide 33 H BUN Creatinine 0.2 L Glucose 155 H POC Glucose Calcium Phosphorus Magnesium Total Creatine Kinase CK-MB (CK-2) Rel Index Troponin T 0.030 H C-Reactive Protein Total Protein Albumin LDL Cholesterol Direct Urine WBC (Auto) 04/08/22 04/08/22 04/08/22 11:19 17:47 18:06 WBC RBC Hgb Hct MCV Plt Count Lymph % (Auto) [place] % (Auto) Lymph # (Auto) [place] # (Auto) Seg Neutrophils % Seg Neuts % (Manual) Lymphocytes % (Manual) Seg Neutrophils # Seg Neutrophils # Man Lymphocytes # (Manual) PT INR ABG pH ABG pO2 ABG HCO3 ABG O2 Saturation ABG Base Excess ABG Hemoglobin Oxyhemoglobin Sodium Potassium Chloride Carbon Dioxide BUN Creatinine Glucose POC Glucose 121 H Calcium Phosphorus Magnesium Total Creatine Kinase 31 L 46 L CK-MB (CK-2) Rel Index 6.4 H 5.6 H Troponin T 0.030 H 0.031 H C-Reactive Protein Total Protein Albumin LDL Cholesterol Direct Urine WBC (Auto) 04/09/22 04/09/22 04/09/22 04:35 04:35 11:24 WBC 11.5 H RBC 3.16 L Hgb 9.9 L Hct 29.4 L MCV Plt Count 131 L Lymph % (Auto) [place] % (Auto) Lymph # (Auto) [place] # (Auto) Seg Neutrophils % Seg Neuts % (Manual) Lymphocytes % (Manual) Seg Neutrophils # Seg Neutrophils # Man Lymphocytes # (Manual) PT INR ABG pH ABG pO2 ABG HCO3 ABG O2 Saturation ABG Base Excess ABG Hemoglobin Oxyhemoglobin Sodium Potassium Chloride 97.1 L Carbon Dioxide 35 H BUN Creatinine < 0.2 L Glucose 145 H POC Glucose 147 H Calcium Phosphorus Magnesium Total Creatine Kinase CK-MB (CK-2) Rel Index Troponin T C-Reactive Protein Total Protein Albumin LDL Cholesterol Direct Urine WBC (Auto) 04/09/22 04/09/22 04/09/22 13:00 17:32 23:48 WBC RBC Hgb Hct MCV Plt Count Lymph % (Auto) [place] % (Auto) Lymph # (Auto) [place] # (Auto) Seg Neutrophils % Seg Neuts % (Manual) Lymphocytes % (Manual) Seg Neutrophils # Seg Neutrophils # Man Lymphocytes # (Manual) PT INR ABG pH ABG pO2 66.6 L ABG HCO3 38.2 H ABG O2 Saturation 94.4 L ABG Base Excess 10.7 H ABG Hemoglobin 10.7 L Oxyhemoglobin 92.8 L Sodium Potassium Chloride Carbon Dioxide BUN Creatinine Glucose POC Glucose 143 H 114 H Calcium Phosphorus Magnesium Total Creatine Kinase CK-MB (CK-2) Rel Index Troponin T C-Reactive Protein Total Protein Albumin LDL Cholesterol Direct Urine WBC (Auto) 04/10/22 04/10/22 04/10/22 04:48 04:48 05:34 WBC RBC 2.91 L Hgb 9.1 L Hct 27.7 L MCV 95 H Plt Count Lymph % (Auto) [place] % (Auto) Lymph # (Auto) [place] # (Auto) Seg Neutrophils % Seg Neuts % (Manual) Lymphocytes % (Manual) Seg Neutrophils # Seg Neutrophils # Man Lymphocytes # (Manual) PT INR ABG pH ABG pO2 ABG HCO3 ABG O2 Saturation ABG Base Excess ABG Hemoglobin Oxyhemoglobin Sodium Potassium Chloride 95.7 L Carbon Dioxide 38 H BUN Creatinine < 0.2 L Glucose 118 H POC Glucose 127 H Calcium Phosphorus Magnesium Total Creatine Kinase CK-MB (CK-2) Rel Index Troponin T C-Reactive Protein Total Protein Albumin LDL Cholesterol Direct Urine WBC (Auto) 04/10/22 04/11/22 04/11/22 23:10 04:15 04:15 WBC 17.2 H RBC 2.98 L Hgb 9.2 L Hct 27.9 L MCV Plt Count Lymph % (Auto) [place] % (Auto) Lymph # (Auto) [place] # (Auto) Seg Neutrophils % Seg Neuts % (Manual) Lymphocytes % (Manual) Seg Neutrophils # Seg Neutrophils # Man Lymphocytes # (Manual) PT INR ABG pH ABG pO2 ABG HCO3 ABG O2 Saturation ABG Base Excess ABG Hemoglobin Oxyhemoglobin Sodium Potassium Chloride 96.1 L Carbon Dioxide 35 H BUN Creatinine < 0.2 L Glucose 138 H POC Glucose 106 H Calcium 8.3 L Phosphorus Magnesium Total Creatine Kinase CK-MB (CK-2) Rel Index Troponin T C-Reactive Protein Total Protein Albumin LDL Cholesterol Direct Urine WBC (Auto) 04/11/22 04/11/22 04/11/22 05:31 13:18 16:20 WBC RBC Hgb Hct MCV Plt Count Lymph % (Auto) [place] % (Auto) Lymph # (Auto) [place] # (Auto) Seg Neutrophils % Seg Neuts % (Manual) Lymphocytes % (Manual) Seg Neutrophils # Seg Neutrophils # Man Lymphocytes # (Manual) PT INR ABG pH ABG pO2 57.8 L ABG HCO3 40.5 H ABG O2 Saturation 90.6 L ABG Base Excess 12.6 H ABG Hemoglobin 10.5 L Oxyhemoglobin 89.0 L Sodium Potassium Chloride Carbon Dioxide BUN Creatinine Glucose POC Glucose 129 H 132 H Calcium Phosphorus Magnesium Total Creatine Kinase CK-MB (CK-2) Rel Index Troponin T C-Reactive Protein Total Protein Albumin LDL Cholesterol Direct Urine WBC (Auto) 04/11/22 04/11/22 04/12/22 17:29 23:17 04:00 WBC 17.4 H RBC 2.96 L Hgb 9.0 L Hct 28.0 L MCV 95 H Plt Count Lymph % (Auto) [place] % (Auto) Lymph # (Auto) [place] # (Auto) Seg Neutrophils % Seg Neuts % (Manual) Lymphocytes % (Manual) Seg Neutrophils # Seg Neutrophils # Man Lymphocytes # (Manual) PT INR ABG pH ABG pO2 ABG HCO3 ABG O2 Saturation ABG Base Excess ABG Hemoglobin Oxyhemoglobin Sodium Potassium Chloride Carbon Dioxide BUN Creatinine Glucose POC Glucose 125 H 151 H Calcium Phosphorus Magnesium Total Creatine Kinase CK-MB (CK-2) Rel Index Troponin T C-Reactive Protein Total Protein Albumin LDL Cholesterol Direct Urine WBC (Auto) 04/12/22 04/12/22 04/12/22 04:00 17:03 23:39 WBC RBC Hgb Hct MCV Plt Count Lymph % (Auto) [place] % (Auto) Lymph # (Auto) [place] # (Auto) Seg Neutrophils % Seg Neuts % (Manual) Lymphocytes % (Manual) Seg Neutrophils # Seg Neutrophils # Man Lymphocytes # (Manual) PT INR ABG pH ABG pO2 ABG HCO3 ABG O2 Saturation ABG Base Excess ABG Hemoglobin Oxyhemoglobin Sodium Potassium Chloride 97.4 L Carbon Dioxide 37 H BUN Creatinine < 0.2 L Glucose 127 H POC Glucose 106 H 107 H Calcium Phosphorus Magnesium Total Creatine Kinase CK-MB (CK-2) Rel Index Troponin T C-Reactive Protein Total Protein Albumin LDL Cholesterol Direct Urine WBC (Auto) 04/13/22 04/13/22 04/13/22 04:30 04:30 17:39 WBC 14.1 H RBC 2.66 L Hgb 8.4 L Hct 25.5 L MCV 96 H Plt Count Lymph % (Auto) [place] % (Auto) Lymph # (Auto) [place] # (Auto) Seg Neutrophils % Seg Neuts % (Manual) Lymphocytes % (Manual) Seg Neutrophils # Seg Neutrophils # Man Lymphocytes # (Manual) PT INR ABG pH ABG pO2 ABG HCO3 ABG O2 Saturation ABG Base Excess ABG Hemoglobin Oxyhemoglobin Sodium Potassium Chloride 93.9 L Carbon Dioxide 39 H BUN Creatinine < 0.2 L Glucose POC Glucose 134 H Calcium Phosphorus 1.90 L Magnesium Total Creatine Kinase CK-MB (CK-2) Rel Index Troponin T C-Reactive Protein Total Protein Albumin LDL Cholesterol Direct Urine WBC (Auto) 04/14/22 04/14/22 04/14/22 05:03 05:03 09:10 WBC 15.6 H RBC 3.02 L Hgb 9.3 L Hct 28.8 L MCV 95 H Plt Count Lymph % (Auto) [place] % (Auto) Lymph # (Auto) [place] # (Auto) Seg Neutrophils % Seg Neuts % (Manual) Lymphocytes % (Manual) Seg Neutrophils # Seg Neutrophils # Man Lymphocytes # (Manual) PT INR ABG pH ABG pO2 66.9 L ABG HCO3 44.5 H ABG O2 Saturation ABG Base Excess 17.2 H ABG Hemoglobin 8.1 L Oxyhemoglobin 94.8 L Sodium Potassium Chloride 93.8 L Carbon Dioxide 42 H* BUN Creatinine < 0.2 L Glucose 117 H POC Glucose Calcium Phosphorus Magnesium Total Creatine Kinase CK-MB (CK-2) Rel Index Troponin T C-Reactive Protein Total Protein Albumin LDL Cholesterol Direct Urine WBC (Auto) 06/09/22 06/09/22 06/10/22 04:44 04:44 04:16 WBC 13.0 H 12.6 H RBC 3.19 L 3.09 L Hgb 9.6 L 9.5 L Hct 30.2 L 29.1 L MCV 95 H Plt Count 456 H Lymph % (Auto) [place] % (Auto) Lymph # (Auto) [place] # (Auto) Seg Neutrophils % Seg Neuts % (Manual) Lymphocytes % (Manual) Seg Neutrophils # Seg Neutrophils # Man Lymphocytes # (Manual) PT INR ABG pH ABG pO2 ABG HCO3 ABG O2 Saturation ABG Base Excess ABG Hemoglobin Oxyhemoglobin Sodium Potassium Chloride 95.5 L Carbon Dioxide 37 H BUN Creatinine < 0.2 L Glucose POC Glucose Calcium Phosphorus Magnesium Total Creatine Kinase CK-MB (CK-2) Rel Index Troponin T C-Reactive Protein Total Protein Albumin LDL Cholesterol Direct Urine WBC (Auto) 04/16/22 04/16/22 04/16/22 04:16 05:00 14:00 WBC RBC Hgb Hct MCV Plt Count Lymph % (Auto) [place] % (Auto) Lymph # (Auto) [place] # (Auto) Seg Neutrophils % Seg Neuts % (Manual) Lymphocytes % (Manual) Seg Neutrophils # Seg Neutrophils # Man Lymphocytes # (Manual) PT INR ABG pH 7.324 L ABG pO2 55.6 L ABG HCO3 45.3 H ABG O2 Saturation 87.1 L ABG Base Excess 16.6 H ABG Hemoglobin 8.6 L Oxyhemoglobin 85.7 L Sodium Potassium Chloride 97.6 L Carbon Dioxide 36 H BUN Creatinine < 0.2 L Glucose 109 H POC Glucose 120 H Calcium Phosphorus Magnesium Total Creatine Kinase CK-MB (CK-2) Rel Index Troponin T C-Reactive Protein Total Protein Albumin LDL Cholesterol Direct Urine WBC (Auto) 04/17/22 04/17/22 04/17/22 04:36 04:36 04:57 WBC 14.4 H RBC 3.08 L Hgb 9.4 L Hct 29.0 L MCV Plt Count Lymph % (Auto) [place] % (Auto) Lymph # (Auto) [place] # (Auto) Seg Neutrophils % Seg Neuts % (Manual) Lymphocytes % (Manual) Seg Neutrophils # Seg Neutrophils # Man Lymphocytes # (Manual) PT INR ABG pH ABG pO2 ABG HCO3 ABG O2 Saturation ABG Base Excess ABG Hemoglobin Oxyhemoglobin Sodium Potassium Chloride 95.9 L Carbon Dioxide 39 H BUN Creatinine < 0.2 L Glucose 140 H POC Glucose 137 H Calcium 8.3 L Phosphorus Magnesium Total Creatine Kinase CK-MB (CK-2) Rel Index Troponin T C-Reactive Protein Total Protein Albumin LDL Cholesterol Direct Urine WBC (Auto) 04/17/22 04/17/22 04/18/22 09:15 18:01 04:20 WBC 11.2 H RBC 3.00 L Hgb 9.3 L Hct 28.6 L MCV 95 H Plt Count Lymph % (Auto) [place] % (Auto) Lymph # (Auto) [place] # (Auto) Seg Neutrophils % Seg Neuts % (Manual) Lymphocytes % (Manual) Seg Neutrophils # Seg Neutrophils # Man Lymphocytes # (Manual) PT INR ABG pH 7.345 L ABG pO2 ABG HCO3 48.2 H ABG O2 Saturation ABG Base Excess 19.2 H ABG Hemoglobin 9.7 L Oxyhemoglobin Sodium Potassium Chloride Carbon Dioxide BUN Creatinine Glucose POC Glucose 129 H Calcium Phosphorus Magnesium Total Creatine Kinase CK-MB (CK-2) Rel Index Troponin T C-Reactive Protein Total Protein Albumin LDL Cholesterol Direct Urine WBC (Auto) 04/18/22 04/18/22 04/18/22 04:20 17:35 23:50 WBC RBC Hgb Hct MCV Plt Count Lymph % (Auto) [place] % (Auto) Lymph # (Auto) [place] # (Auto) Seg Neutrophils % Seg Neuts % (Manual) Lymphocytes % (Manual) Seg Neutrophils # Seg Neutrophils # Man Lymphocytes # (Manual) PT INR ABG pH ABG pO2 ABG HCO3 ABG O2 Saturation ABG Base Excess ABG Hemoglobin Oxyhemoglobin Sodium Potassium Chloride 96.8 L Carbon Dioxide 43 H* BUN 22 H Creatinine < 0.2 L Glucose 137 H POC Glucose 128 H 123 H Calcium 8.2 L Phosphorus Magnesium Total Creatine Kinase CK-MB (CK-2) Rel Index Troponin T C-Reactive Protein Total Protein Albumin LDL Cholesterol Direct Urine WBC (Auto) 04/19/22 04/19/22 04/19/22 04:08 04:08 08:50 WBC 16.8 H RBC 3.18 L Hgb 9.8 L Hct 30.1 L MCV 95 H Plt Count Lymph % (Auto) [place] % (Auto) Lymph # (Auto) [place] # (Auto) Seg Neutrophils % Seg Neuts % (Manual) Lymphocytes % (Manual) Seg Neutrophils # Seg Neutrophils # Man Lymphocytes # (Manual) PT INR ABG pH ABG pO2 56.0 L ABG HCO3 47.1 H ABG O2 Saturation 93.3 L ABG Base Excess 20.1 H ABG Hemoglobin 8.0 L Oxyhemoglobin 91.8 L Sodium Potassium Chloride 96.2 L Carbon Dioxide 40 H BUN 24 H Creatinine < 0.2 L Glucose 125 H POC Glucose Calcium 8.3 L Phosphorus Magnesium Total Creatine Kinase CK-MB (CK-2) Rel Index Troponin T C-Reactive Protein Total Protein Albumin LDL Cholesterol Direct Urine WBC (Auto) 04/19/22 04/20/22 04/20/22 12:02 00:40 04:49 WBC 14.7 H RBC 3.36 L Hgb 10.3 L Hct 32.0 L MCV 95 H Plt Count Lymph % (Auto) [place] % (Auto) Lymph # (Auto) [place] # (Auto) Seg Neutrophils % Seg Neuts % (Manual) Lymphocytes % (Manual) Seg Neutrophils # Seg Neutrophils # Man Lymphocytes # (Manual) PT INR ABG pH ABG pO2 ABG HCO3 ABG O2 Saturation ABG Base Excess ABG Hemoglobin Oxyhemoglobin Sodium Potassium Chloride Carbon Dioxide BUN Creatinine Glucose POC Glucose 124 H 140 H Calcium Phosphorus Magnesium Total Creatine Kinase CK-MB (CK-2) Rel Index Troponin T C-Reactive Protein Total Protein Albumin LDL Cholesterol Direct Urine WBC (Auto) 04/20/22 04/20/22 04/21/22 05:36 11:40 04:05 WBC RBC Hgb Hct MCV Plt Count Lymph % (Auto) [place] % (Auto) Lymph # (Auto) [place] # (Auto) Seg Neutrophils % Seg Neuts % (Manual) Lymphocytes % (Manual) Seg Neutrophils # Seg Neutrophils # Man Lymphocytes # (Manual) PT INR ABG pH ABG pO2 ABG HCO3 ABG O2 Saturation ABG Base Excess ABG Hemoglobin Oxyhemoglobin Sodium Potassium Chloride 93.4 L Carbon Dioxide 40 H BUN 25 H Creatinine < 0.2 L Glucose 122 H POC Glucose 125 H 128 H Calcium Phosphorus Magnesium Total Creatine Kinase CK-MB (CK-2) Rel Index Troponin T C-Reactive Protein Total Protein Albumin LDL Cholesterol Direct Urine WBC (Auto) 04/21/22 04/22/22 04/22/22 10:31 05:03 05:03 WBC 12.6 H 12.7 H RBC 2.83 L 2.96 L Hgb 8.6 L 9.0 L Hct 26.9 L 28.0 L MCV 95 H 95 H Plt Count Lymph % (Auto) [place] % (Auto) Lymph # (Auto) [place] # (Auto) Seg Neutrophils % Seg Neuts % (Manual) Lymphocytes % (Manual) Seg Neutrophils # Seg Neutrophils # Man Lymphocytes # (Manual) PT INR ABG pH ABG pO2 ABG HCO3 ABG O2 Saturation ABG Base Excess ABG Hemoglobin Oxyhemoglobin Sodium Potassium Chloride 93.9 L Carbon Dioxide 43 H* BUN 23 H Creatinine < 0.2 L Glucose 137 H POC Glucose Calcium Phosphorus Magnesium Total Creatine Kinase CK-MB (CK-2) Rel Index Troponin T C-Reactive Protein Total Protein Albumin LDL Cholesterol Direct Urine WBC (Auto) 04/22/22 04/23/22 04/24/22 08:34 09:40 04:29 WBC 14.4 H RBC 2.74 L Hgb 8.4 L Hct 25.7 L MCV Plt Count Lymph % (Auto) [place] % (Auto) Lymph # (Auto) [place] # (Auto) Seg Neutrophils % Seg Neuts % (Manual) Lymphocytes % (Manual) Seg Neutrophils # Seg Neutrophils # Man Lymphocytes # (Manual) PT INR ABG pH ABG pO2 54.1 L 56.8 L ABG HCO3 48.5 H 49.0 H ABG O2 Saturation 92.1 L 90.9 L ABG Base Excess 20.9 H 20.8 H ABG Hemoglobin 9.0 L 8.4 L Oxyhemoglobin 90.6 L 89.5 L Sodium Potassium Chloride Carbon Dioxide BUN Creatinine Glucose POC Glucose Calcium Phosphorus Magnesium Total Creatine Kinase CK-MB (CK-2) Rel Index Troponin T C-Reactive Protein Total Protein Albumin LDL Cholesterol Direct Urine WBC (Auto) 04/24/22 04/25/22 04/26/22 04:29 09:00 04:22 WBC RBC 2.88 L Hgb 8.9 L Hct 26.8 L MCV Plt Count Lymph % (Auto) [place] % (Auto) Lymph # (Auto) [place] # (Auto) Seg Neutrophils % Seg Neuts % (Manual) Lymphocytes % (Manual) Seg Neutrophils # Seg Neutrophils # Man Lymphocytes # (Manual) PT INR ABG pH 7.457 H ABG pO2 66.7 L ABG HCO3 42.6 H ABG O2 Saturation ABG Base Excess 15.3 H ABG Hemoglobin 8.8 L Oxyhemoglobin 94.1 L Sodium Potassium Chloride 90.7 L Carbon Dioxide 40 H BUN Creatinine < 0.2 L Glucose 133 H POC Glucose Calcium Phosphorus Magnesium Total Creatine Kinase CK-MB (CK-2) Rel Index Troponin T C-Reactive Protein Total Protein Albumin LDL Cholesterol Direct Urine WBC (Auto) 04/26/22 04/29/22 04/29/22 04:22 04:18 04:18 WBC 13.5 H RBC 2.96 L Hgb 8.9 L Hct 27.7 L MCV Plt Count Lymph % (Auto) [place] % (Auto) Lymph # (Auto) [place] # (Auto) Seg Neutrophils % Seg Neuts % (Manual) Lymphocytes % (Manual) Seg Neutrophils # Seg Neutrophils # Man Lymphocytes # (Manual) PT INR ABG pH ABG pO2 ABG HCO3 ABG O2 Saturation ABG Base Excess ABG Hemoglobin Oxyhemoglobin Sodium Potassium Chloride 93.2 L 95.2 L Carbon Dioxide 37 H 38 H BUN Creatinine < 0.2 L < 0.2 L Glucose 114 H 116 H POC Glucose Calcium Phosphorus Magnesium Total Creatine Kinase CK-MB (CK-2) Rel Index Troponin T C-Reactive Protein Total Protein Albumin LDL Cholesterol Direct Urine WBC (Auto) 05/02/22 05/03/22 05/03/22 04:29 04:02 04:02 WBC 12.9 H 12.3 H RBC 2.82 L 2.83 L Hgb 8.4 L 8.4 L Hct 26.2 L 26.0 L MCV Plt Count Lymph % (Auto) [place] % (Auto) Lymph # (Auto) [place] # (Auto) Seg Neutrophils % Seg Neuts % (Manual) Lymphocytes % (Manual) Seg Neutrophils # Seg Neutrophils # Man Lymphocytes # (Manual) PT INR ABG pH ABG pO2 ABG HCO3 ABG O2 Saturation ABG Base Excess ABG Hemoglobin Oxyhemoglobin Sodium 134 L Potassium Chloride 90.5 L Carbon Dioxide 38 H BUN 21 H Creatinine < 0.2 L Glucose 126 H POC Glucose Calcium Phosphorus Magnesium Total Creatine Kinase CK-MB (CK-2) Rel Index Troponin T C-Reactive Protein Total Protein Albumin LDL Cholesterol Direct Urine WBC (Auto) 05/03/22 12:02 WBC RBC Hgb Hct MCV Plt Count Lymph % (Auto) [place] % (Auto) Lymph # (Auto) [place] # (Auto) Seg Neutrophils % Seg Neuts % (Manual) Lymphocytes % (Manual) Seg Neutrophils # Seg Neutrophils # Man Lymphocytes # (Manual) PT INR ABG pH ABG pO2 ABG HCO3 ABG O2 Saturation ABG Base Excess ABG Hemoglobin Oxyhemoglobin Sodium Potassium Chloride Carbon Dioxide BUN Creatinine Glucose POC Glucose 139 H Calcium Phosphorus Magnesium Total Creatine Kinase CK-MB (CK-2) Rel Index Troponin T C-Reactive Protein Total Protein Albumin LDL Cholesterol Direct Urine WBC (Auto) Chest x-ray: image reviewed (near complete resolution of RLL atelectasis) Allied health notes reviewed: nursing
--- NOTE | 2022-05-03 15:09 | Progress Note ---
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, recently hospitalized at [facility] admitted for acute hypoxemic respiratory failure 2/2 pneumonia Neuro: h/o ALS -s/p precedex, fentanyl gtt -Reorientation as needed -Maintain sleep-wake cycle -As needed analgesia -CT head with no acute intracranial process -Per family patient is nonverbal at baseline but responsive -Seroquel Cardiac: Suspect ischemic coronary artery disease, h/o cardiomyopathy -Cardiology consulted, appreciate recommendations -continue conservative management -Blood pressure monitoring per protocol -s/p Vasopressor support with Levophed -Echocardiogram shows ejection fraction of 40 to 45%, mild global hypokinesis of left ventricle -Nitro patch, BB Respiratory: Acute hypoxic respiratory failure -CCM consulted, appreciate recommendations -Intubated on 04/02 with a 7.50 ETT attempt at the lips -s/p trach on 04/14 and s/p bronch on 04/15 -A.m. vent settings: Assist-control/ PRVC TV 400, rate 14, Peep 10, FiO2 35% -See RT notes for titration -CPT and mucomyst -VAP bundle -SPO2 monitoring GI: Moderate protein calorie malnutrition -24 hours -150 mL -PPI -Peg 04/14 -NTR consulted for tube feedings -BR: Senokot/colace, MiraLAX : Metabolic Alkalosis -Record intake and output -Renally dose medications -Avoid nephrotoxic medications -Daily weights -trend BMP ID: Sepsis, Acute Bronchopneumonia, HAP (Pseudomonas and Enterobacter tracheal aspirate), blood culture with bacillus species -Infectious disease consulted, appreciate recommendation-> signed off -Per infectious disease patient was recently admitted to [facility] but discharged home with home hospice and not giving antibiotics -04/15 Tracheal aspirate with Pseudomonas aeruginosa, Enterobacter aerogenes -04/02 blood culture with bacillus species, 04/05 blood culture NGTD -MRSA (-) -s/p cefepime for 14 days -Monitor WBC and temperature curve Endo: NAD -Avoid hypoglycemia -SSI -Accu-Cheks q 6 Heme: Leukocytosis -Heparin subq -Trend CBC -Transfuse hemoglobin less than 7 -SCDs to BLE while in bed Advance Care Planning - Disease education, care plan, diagnoses, and prognosis were discussed patient's , Carly Lopez, and patient daughter, Kaylee Warren, who translated for #[phone]. They reported that patient was following at [facility] for his ALS and during recent hospitalization at [facility] they were told nothing else can be offered to patient at this time and patient was discharge home with home hospice and PO morphine. First hospice visit was on , 04/01 however, patient became unresponsive 04/02 and they brought in to the hospital. - Goal of care and code status were also addressed at that time. Family wants to wait for a couple days to see how patient respond to current treatment before making a decision. All questions and concerns were addressed at this time. Patient family acknowledged understanding and agreement with care plan. -Patient remains a FULL CODE status. -04/05: Discussion at bedside with interpreting service with Dr. Valdivia and family state they would discuss next steps amongst themselves and let healthcare team know of decisions -04/06: extensive discussion with family ( and son) with Dr. Grayson regarding goals of care -04/08: Extensive discussion with with the use of bus monitor line regarding goals of care; no decision made. Possible consult to surgery for trach/PEG early next week. -04/09: Discussion with and her sister with Dr. Grayson and then with Dr. Pineda-> Consulted surgery for trach/peg -04/30 Insurance Denied LTAC, plan for possible SNF placement now. Case management to arrange -Family declined SNF -Awaiting home discharge with vent setup The high probability of a clinically significant, sudden or life threatening deterioration of the [resp] system(s) required my full and direct attention, intervention and personal management. The aggregate critical care time was [60] minutes. 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 Work-up in the emergency department revealed leukocytosis, elevated troponin and hyponatremia and CXR revealed moderate to large pleural effusion on the right. Patient was having agonal breathing in the emergency department and was intubated. Patient was admitted to the hospitalist service with consults to [facility], cardiology and infectious disease for further work-up. Hospital Course to Date: 04/03: Intubated and Sedated on versed gtt, RASS-5. CT head/brain noted with no acute intracranial abnormality. Plan to initiated precededx gtt and wean off versed for a RASS goal of 0 to -2. CT chect also reviewed, findings are most consistent with acute bronchopneumonia. Continue empiric IV Abx, vent adjustment per CCM. ID consulted. Continue to F/U on cultures. Titrate pressor for MAP above 65. Medical records requested from [facility]. 04/04: Remains stable on the vent, easily arousable on precedex gtt, not following commands. Plan for SAT/SBT today. PRN analgesia for CPOT greater than 3. Fevers improved, cultures and procal pending. Continue current IV abx, ID also consulted. Remains on low dose pressors, titrate pressors for a MAP above 65. 04/05: Long discussion with family with use of translation phone with [facility] regarding goals of care. Family to have meeting amongst themselves and informed care team of decisions. Fentanyl drip added for respiratory distress. Remains on Precedex drip. Antibiotics per ID. Given 2L NS bolus with levophed gtt 04/06: Family discussion with Dr. Grayson for goals of care. CXR shows possible mucus plug, continue CPT as FiO2 is being able to be weaned. Potassium repleted. Weaning fentnyl gtt. 04/07: Ultrasound guided thoracentesis today scheduled, inadequate amount of pleural effusion on so not completed. Patient was started on Levophed overnight which was weaned off this morning however had to be started twice a day. Remains on fentanyl and Precedex. Cardiology discontinued BB and ACEi in setting of hypotension. 04/08: COVID-19 PCR negative. Routine EEG ordered by cardiology which showed ST changes, cardiology aware. They will continue conservative treatment. Repeat troponins 0.030 which are less than admit of 0.048. Dr. Grayson had a long discussion with with the use of bus monitor today at bedside and has not made a decision regarding goals of care. Possible consult to surgery for trach/PEG early next week. Continues to require Precedex and fentanyl drip for sedation. Carvedilol/lisinopril discontinued as patient is continuously on Levophed. 04/09: No acute events reported overnight, remains on fentanyl, Precedex and Levophed drips. Dr. Grayson and Dr. Pineda updated family at bedside extensively today. Consulted surgery for trach/PEG. COVID-19 PCR negative. 04/10: Patient noted to have desaturation episodes, FiO2 increased slightly to 35%. Will add Mucomyst. Remains on fentanyl and Precedex. Off of Levophed. Surgery consulted for trach/PEG. 04/11: FiO2 increased over night likely related to hypoxia, continues on fent gtt, weaning precedex gtt as he is also on Seroquel. Will d/w CCM re scheduled or prn oxycodone 04/12: Periods of hypoxia and tachycardia this am. Symptoms improved post deep suction and tracheal lavage, Repeat CXR noted with no significant change. Continue CPT and mucomyst. Plan for possible trach/PEG tomorrow by general surgery. 04/13: Remains stable on the vent. Patient is wake and tracking but does not follow simple commands. No report of hypoxia from overnight, continue CPT and mucomyst. Plan for track and PEG today by General Surgery. Plan for LTAC placement post procedure, case management to arrange. 04/14: VIRGILIO overnight, Trach and PEG postponed for today by general surgery. Plan for LTAC placement post procedure, case management to arrange. 04/15: S/p Trach and PEG. Up to 80% FiO2 this am, this am CXR noted suggesting possible mucus plug. D/W [facility] plan for bronch today. Continue CPT and mucomyst. Plan of care thoroughly discussed with patient's and son (who translated for ) at the bedside. Per , management accounts manager had already discussed the risks and benefits of the procedure yesterday. She verbalized understanding and agreed with procedure and current care plan, consent signed. Okay to use PEG-tube for meds this am, resume TF once okay by general Surgery. Case management to arrange LTAC placement. 04/16: s/p Bronchocopy by CCM. FiO2 down to 60%, angela 10 this am. This am CXR with moderate improvement. Continue CPT and mucomyst, wean Fio2 as tolerated for SPO2 above 92%. Patient is tolerating TF, advance to goal as ordered. Possible LTAC placement, case management to arrange. 04/17: VIRGILIO overnight. remains stable on the vent, recent CXR and this am ABG noted. Continue CPT and mucomyst, wean Fio2 as tolerated. 04/18: Remains stable on the vent, Fio2 down to 55% and peep of 8 this am. Continue to wean as tolerated, CPT, and mucomyst. Dsiposition- LTAC placement, case management to arrange. 04/19: No acute events overnight. Continue current management. 04/20: No acute events overnight, continue current management 04/21: Patient had chest ultrasound which showed trace pleural effusions, chest x-ray improved after the addition of Mucomyst yesterday. FiO2 55-65%. No acute events overnight. more interactive today. 04/22: Seroquel changed to BID, FiO2 was increased to 60%. RT increased FIO2 to 100 d/t desaturation into the 80s but was able to wean down. CCM increased PEEP and decreased FiO2. 04/23: CCM increase PEEP, no acute events reported overnight. 04/24: Spoke to RT about decreasing FiO2 as tolerated. No acute events reported overnight. Continue supportive management. 04/25: Weaning as tolerated. no acute events overnight. RT to attempt CPAP again today 04/26: VIRGILIO overnight. Patient failed PSV trial again this morning. Continue supportive management and daily PST trial. 04/27: Patient failed PSV trial again this am due to episodes of apnea. Continue daily PSV trial as tolerated. Case management to arrange LTAC placement 04/28: Remains stable. Continue daily PSV trial as tolerated. Awaiting approval for LTAC 04/29: VIRGILIO overnight. Continue daily PSV trial. Awaiting approval for LTAC, case management to arrange. 04/30: Patient continue to fail PSV trial. Per case management patient was denied for LTAC, now possible SNF placement. Case managemen to arrange. Continue supportive measures and daily PSV trial as tolerated. 05/01: VIRGILIO overnight. Continue supportive measures and daily PSV trial as tolerated. Possible SNF placement. 05/02: Continue supportive measures and daily PSV trial as tolerated. Possible SNF placement, case management to arrange 05/03: no acute events overnight, CM arranging home vent setup. Family declined SNF. Hospitalist Physical - Constitutional Vitals: Temp Pulse Resp BP Pulse Ox 100 F H 126 H 32 H 129/76 92 05/03/22 12:00 05/03/22 14:00 05/03/22 14:00 05/03/22 14:00 05/03/22 14:00 General appearance: Present: no acute distress, cachectic, other (trach/) - EENT Eyes: Present: PERRL, EOM intact ENT: poor dentition - Neck Neck: Present: normal ROM - Respiratory Respiratory effort: normal Respiratory: bilateral: diminished - Cardiovascular Rhythm: regular Heart Sounds: Present: S1 & S2. Absent: systolic murmur, diastolic murmur - Extremities Extremities: no ischemia, pulses intact, pulses symmetrical, No edema, normal temperature, normal color Peripheral Pulses: within normal limits - Abdominal General gastrointestinal: soft, non-tender, non-distended, normal bowel sounds - Integumentary Integumentary: Present: warm, dry - Psychiatric Psychiatric: cooperative - Neurologic Neurologic: other (moves BUE, PERRL, intact cough/gag) - Allied Health Allied health notes reviewed: nursing, RT, social work HEART Score - HEART Score Troponin: Troponin T 0.031 ng/mL (0.00-0.029) H 04/08/22 17:47 Results - Labs CBC & Chem 7: 05/03/22 04:02 05/03/22 04:02 Labs: Laboratory Last Values WBC 12.3 K/mm3 (4.5-11.0) H 05/03/22 04:02 RBC 2.83 M/mm3 (3.65-5.03) L 05/03/22 04:02 Hgb 8.4 gm/dl (11.8-15.2) L 05/03/22 04:02 Hct 26.0 % (35.5-45.6) L 05/03/22 04:02 MCV 92 fl (84-94) 05/03/22 04:02 MCH 30 pg (28-32) 05/03/22 04:02 MCHC 32 % (32-34) 05/03/22 04:02 RDW 14.0 % (13.2-15.2) 05/03/22 04:02 Plt Count 329 K/mm3 (140-440) 05/03/22 04:02 Lymph % (Auto) 4.3 % (13.4-35.0) L 04/07/22 03:51 [place] % (Auto) 8.8 % (0.0-7.3) H 04/07/22 03:51 Eos % (Auto) 0.1 % (0.0-4.3) 04/07/22 03:51 Baso % (Auto) 0.2 % (0.0-1.8) 04/07/22 03:51 Lymph # (Auto) 0.6 K/mm3 (1.2-5.4) L 04/07/22 03:51 [place] # (Auto) 1.3 K/mm3 (0.0-0.8) H 04/07/22 03:51 Eos # (Auto) 0.0 K/mm3 (0.0-0.4) 04/07/22 03:51 Baso # (Auto) 0.0 K/mm3 (0.0-0.1) 04/07/22 03:51 Add Manual Diff Complete 04/02/22 19:39 Total Counted 100 04/02/22 19:39 Seg Neutrophils % 86.6 % (40.0-70.0) H 04/07/22 03:51 Seg Neuts % (Manual) 94.0 % (40.0-70.0) H 04/02/22 19:39 Band Neutrophils % 0 % 04/02/22 19:39 Lymphocytes % (Manual) 1.0 % (13.4-35.0) L 04/02/22 19:39 Reactive Lymphs % (Man) 0 % 04/02/22 19:39 Monocytes % (Manual) 5.0 % (0.0-7.3) 04/02/22 19:39 Eosinophils % (Manual) 0 % (0.0-4.3) 04/02/22 19:39 Basophils % (Manual) 0 % (0.0-1.8) 04/02/22 19:39 Metamyelocytes % 0 % 04/02/22 19:39 Myelocytes % 0 % 04/02/22 19:39 Promyelocytes % 0 % 04/02/22 19:39 Blast Cells % 0 % 04/02/22 19:39 Nucleated RBC % Not Reportable 04/02/22 19:39 Seg Neutrophils # 12.7 K/mm3 (1.8-7.7) H 04/07/22 03:51 Seg Neutrophils # Man 13.4 K/mm3 (1.8-7.7) H 04/02/22 19:39 Band Neutrophils # 0.0 K/mm3 04/02/22 19:39 Lymphocytes # (Manual) 0.1 K/mm3 (1.2-5.4) L 04/02/22 19:39 Abs React Lymphs (Man) 0.0 K/mm3 04/02/22 19:39 Monocytes # (Manual) 0.7 K/mm3 (0.0-0.8) 04/02/22 19:39 Eosinophils # (Manual) 0.0 K/mm3 (0.0-0.4) 04/02/22 19:39 Basophils # (Manual) 0.0 K/mm3 (0.0-0.1) 04/02/22 19:39 Metamyelocytes # 0.0 K/mm3 04/02/22 19:39 Myelocytes # 0.0 K/mm3 04/02/22 19:39 Promyelocytes # 0.0 K/mm3 04/02/22 19:39 Blast Cells # 0.0 K/mm3 04/02/22 19:39 WBC Morphology Not Reportable 04/02/22 19:39 Hypersegmented Neuts Not Reportable 04/02/22 19:39 Hyposegmented Neuts Not Reportable 04/02/22 19:39 Hypogranular Neuts Not Reportable 04/02/22 19:39 Smudge Cells Not Reportable 04/02/22 19:39 Toxic Granulation Not Reportable 04/02/22 19:39 Toxic Vacuolation Not Reportable 04/02/22 19:39 Dohle Bodies Not Reportable 04/02/22 19:39 Pelger-Huet Anomaly Not Reportable 04/02/22 19:39 Terry Rods Not Reportable 04/02/22 19:39 Platelet Estimate Consistent w auto 04/02/22 19:39 Clumped Platelets Not Reportable 04/02/22 19:39 Plt Clumps, EDTA Not Reportable 04/02/22 19:39 Large Platelets Not Reportable 04/02/22 19:39 Giant Platelets Not Reportable 04/02/22 19:39 Platelet Satelliting Not Reportable 04/02/22 19:39 Plt Morphology Comment Not Reportable 04/02/22 19:39 RBC Morphology Not Reportable 04/02/22 19:39 Dimorphic RBCs Not Reportable 04/02/22 19:39 Polychromasia Not Reportable 04/02/22 19:39 Hypochromasia Not Reportable 04/02/22 19:39 Poikilocytosis Not Reportable 04/02/22 19:39 Anisocytosis 1+ 04/02/22 19:39 Microcytosis Not Reportable 04/02/22 19:39 Macrocytosis Not Reportable 04/02/22 19:39 Spherocytes Not Reportable 04/02/22 19:39 Pappenheimer Bodies Not Reportable 04/02/22 19:39 Sickle Cells Not Reportable 04/02/22 19:39 Target Cells Not Reportable 04/02/22 19:39 Tear Drop Cells Not Reportable 04/02/22 19:39 Ovalocytes Not Reportable 04/02/22 19:39 Helmet Cells Not Reportable 04/02/22 19:39 [place] Bodies Not Reportable 04/02/22 19:39 [place] Rings Not Reportable 04/02/22 19:39 [place] Cells Not Reportable 04/02/22 19:39 Bite Cells Not Reportable 04/02/22 19:39 Crenated Cell Not Reportable 04/02/22 19:39 Elliptocytes Not Reportable 04/02/22 19:39 Acanthocytes (Spur) Not Reportable 04/02/22 19:39 Rouleaux Not Reportable 04/02/22 19:39 Hemoglobin C Crystals Not Reportable 04/02/22 19:39 Schistocytes Not Reportable 04/02/22 19:39 Malaria parasites Not Reportable 04/02/22 19:39 [place] Bodies Not Reportable 04/02/22 19:39 Hem Pathologist Commnt No 04/02/22 19:39 PT 13.6 Sec. (12.2-14.9) 04/13/22 04:30 INR 0.94 (0.87-1.13) 04/13/22 04:30 APTT 35.7 Sec. (24.2-36.6) 04/07/22 03:51 ABG pH 7.457 pH Units (7.350-7.450) H 04/25/22 09:00 ABG pCO2 61.7 mm Hg 04/25/22 09:00 ABG pO2 66.7 mm Hg (80.0-90.0) L 04/25/22 09:00 ABG HCO3 42.6 mmol/L (20.0-26.0) H 04/25/22 09:00 ABG O2 Saturation 95.7 % (95.0-99.0) 04/25/22 09:00 ABG O2 Content 20.0 (0.0-44) 04/25/22 09:00 ABG Base Excess 15.3 mmol/L (-2.0-3.0) H 04/25/22 09:00 ABG Hemoglobin 8.8 gm/dl (14.0-18.0) L 04/25/22 09:00 ABG Carboxyhemoglobin 1.3 % (0.0-5.0) 04/25/22 09:00 ABG Methemoglobin 0.4 % (0.0-1.5) 04/25/22 09:00 Oxyhemoglobin 94.1 % (95.0-99.0) L 04/25/22 09:00 FiO2 35 % 04/25/22 09:00 Sodium 134 mmol/L (137-145) L 05/03/22 04:02 Potassium 4.3 mmol/L (3.6-5.0) 05/03/22 04:02 Chloride 90.5 mmol/L (98-107) L 05/03/22 04:02 Carbon Dioxide 38 mmol/L (22-30) H 05/03/22 04:02 Anion Gap 10 mmol/L 05/03/22 04:02 BUN 21 mg/dL (9-20) H 05/03/22 04:02 Creatinine < 0.2 mg/dL (0.8-1.3) L 05/03/22 04:02 Estimated GFR > 60 ml/min 05/03/22 04:02 BUN/Creatinine Ratio 105 % 05/03/22 04:02 Glucose 126 mg/dL (75-100) H 05/03/22 04:02 POC Glucose 139 mg/dL (70-105) H 05/03/22 12:02 Lactic Acid 1.90 mmol/L (0.7-2.0) 04/02/22 19:39 Calcium 8.9 mg/dL (8.4-10.2) 05/03/22 04:02 Phosphorus 3.40 mg/dL (2.5-4.5) 05/03/22 04:02 Magnesium 1.90 mg/dL (1.7-2.3) 05/03/22 04:02 Total Bilirubin 0.80 mg/dL (0.1-1.2) 04/02/22 19:39 AST 15 units/L (5-40) 04/02/22 19:39 ALT 9 units/L (7-56) 04/02/22 19:39 Alkaline Phosphatase 43 units/L (35-129) 04/02/22 19:39 Total Creatine Kinase 46 units/L (55-170) L 04/08/22 17:47 CK-MB (CK-2) 2.6 ng/mL (0.0-4.0) 04/08/22 17:47 CK-MB (CK-2) Rel Index 5.6 (0-4) H 04/08/22 17:47 Troponin T 0.031 ng/mL (0.00-0.029) H 04/08/22 17:47 C-Reactive Protein 31.60 mg/dL (0.00-1.30) H 04/04/22 04:18 Total Protein 4.6 g/dL (6.3-8.2) L 04/02/22 19:39 Albumin 2.7 g/dL (3.9-5) L 04/02/22 19:39 Albumin/Globulin Ratio 1.4 % 04/02/22 19:39 Triglycerides 80 mg/dL (2-149) 04/02/22 19:39 Cholesterol 94 mg/dL (50-199) 04/02/22 19:39 LDL Cholesterol Direct 27 mg/dL (50-130) L 04/02/22 19:39 HDL Cholesterol 47 mg/dL (40-59) 04/02/22 19:39 Cholesterol/HDL Ratio 2.00 % 04/02/22 19:39 Procalcitonin 0.08 ng/mL (<0.15) 04/04/22 04:18 Urine Color Aracely (Yellow) 04/05/22 17:45 Urine Turbidity Cloudy (Clear) 04/05/22 17:45 Urine pH 5.0 (5.0-7.0) 04/05/22 17:45 Ur Specific [place] 1.021 (1.003-1.030) 04/05/22 17:45 Urine Protein 30 mg/dl mg/dL (Negative) 04/05/22 17:45 Urine Glucose (UA) Neg mg/dL (Negative) 04/05/22 17:45 Urine Ketones Tr mg/dL (Negative) 04/05/22 17:45 Urine Blood Sm (Negative) 04/05/22 17:45 Urine Nitrite Neg (Negative) 04/05/22 17:45 Urine Bilirubin Neg (Negative) 04/05/22 17:45 Urine Urobilinogen < 2.0 mg/dL (<2.0) 04/05/22 17:45 Ur Leukocyte Esterase Tr (Negative) 04/05/22 17:45 Urine WBC (Auto) 8.0 /HPF (0.0-6.0) H 04/05/22 17:45 Urine RBC (Auto) 3.0 /HPF (0.0-6.0) 04/05/22 17:45 U Epithel Cells (Auto) 2.0 /HPF (0-13.0) 04/05/22 17:45 Urine Bacteria (Auto) 1+ /HPF (Negative) 04/02/22 Unknown Hyaline Casts 1 /LPF 04/05/22 17:45 Urine Mucus 3+ /HPF 04/05/22 17:45 Nasal Screen MRSA (PCR) Negative (Negative) 04/05/22 12:37 Vancomycin Trough 6.0 ug/mL (5.0-20.0) 04/05/22 18:53 Coronavirus (PCR) Negative (Negative) 04/07/22 14:52 Perez/IV: Voiding Method Condom Catheter Active Medications - Current Medications Current Medications: Generic Name Dose Route Start Last Admin Trade Name Freq PRN Reason Stop Dose Admin Acetaminophen 650 mg 04/02/22 23:53 05/03/22 09:48 Acetaminophen 325 Mg Tab PO 650 mg Q6H PRN Administration Pain MILD(1-3)/Fever >100.5/FAITH Acetylcysteine 200 mg 04/21/22 16:00 05/03/22 08:26 Acetylcysteine 20% 200 Mg/1 Ml *For Inhalation Use* INHALATION 200 mg Q8HRT SEGUNDO Administration Albuterol 2.5 mg 04/06/22 16:00 05/03/22 08:26 Albuterol 2.5 Mg/3 Ml Nebu IH 2.5 mg Q8HRT SEGUNDO Administration Bisacodyl 10 mg 04/07/22 09:44 04/12/22 10:06 Bisacodyl 10 Mg Rect Supp NM 10 mg QDAY PRN Administration Constipation Dextrose 50 ml 04/06/22 17:54 Dextrose 50% In Water (25gm) 50 Ml Syringe IV Q30MIN PRN Hypoglycemia Protocol Docusate Sodium 100 mg 04/28/22 10:00 05/03/22 09:49 Docusate Sodium 100 Mg/10 Ml Oral Liqd FEEDTUBE 100 mg BID SEGUNDO Administration Famotidine 20 mg 04/06/22 10:00 05/03/22 09:48 Famotidine 20 Mg Tab FEEDTUBE 20 mg BID SEGUNDO Administration Fentanyl 50 mcg 04/04/22 15:56 04/29/22 21:40 Fentanyl 100 Mcg/2 Ml Inj IV 50 mcg Q2HR PRN Administration For CPOT of greater than 3 Heparin Sodium (Porcine) 5,000 unit 04/03/22 06:00 05/03/22 13:53 Heparin 5,000 Unit/1 Ml Vial SUB-Q 5,000 unit Q8HR SEGUNDO Administration Insulin Human Regular 0 units 04/06/22 18:00 05/03/22 12:16 Insulin Regular, Human 100 Units/1 Ml SUB-Q Not Given Q6H [facility] Protocol Magnesium Hydroxide 30 ml 04/02/22 23:53 Magnesium Hydroxide (Mom) Oral Liqd Udc PO Q4H PRN Constipation Metoprolol Tartrate 12.5 mg 05/03/22 13:00 05/03/22 13:52 Metoprolol Tartrate 25 Mg Tab FEEDTUBE 12.5 mg Q6HR SEGUNDO Administration Ondansetron HCl 4 mg 04/02/22 23:53 Ondansetron 4 Mg/2 Ml Inj IV Q8H PRN Nausea And Vomiting Polyethylene Glycol 17 gm 04/08/22 10:00 05/03/22 09:47 Polyethylene Glycol 3350 17 Gm Powder PO 17 gm QDAY SEGUNDO Administration Quetiapine Fumarate 50 mg 04/28/22 10:00 05/03/22 09:47 Quetiapine 25 Mg Tab FEEDTUBE 50 mg BID SEGUNDO Administration Senna 17.6 mg 04/28/22 10:00 05/03/22 09:48 Sennosides Oral Liqd 8.8 Mg/5 Ml Oral Liqd FEEDTUBE 17.6 mg Q12HR SEGUNDO Administration Sodium Chloride 10 ml 04/03/22 10:00 05/03/22 09:49 Sodium Chloride 0.9% 10 Ml Flush Syringe IV 10 ml BID SEGUNDO Administration Sodium Chloride 10 ml 04/02/22 23:53 Sodium Chloride 0.9% 10 Ml Flush Syringe IV PRN PRN LINE FLUSH Nutrition/Malnutrition Assess - Dietary Evaluation Nutrition/Malnutrition Findings: Nutrition Notes Start: 04/04/22 13:13 Freq: Status: Active Protocol: Document 04/27/22 11:53 COLLEEN (Rec: 04/27/22 12:21 COLLEEN [id number]) Nutrition Notes Initial or Follow up Reassessment Current Diagnosis Coronary Artery Disease, Decubitus(Pressure Ulcer), Sepsis,Respiratory Failure, Malnutrition Other Pertinent Diagnosis HCAP, HFpEF, ALS, Pleural Effusion, R-Lung Collapse, .. . Current Diet TF-Vital AF 1.2 Inderjit @ 50 ml/hr (since D 04/15). Labs/Tests 04/27: Cl 93.2, CO2 37, Crea < 0.2, Glu 114. Pertinent Medications 04/27: Nutritionally unremarkable. Height 5 ft 4.8 in Weight 46.8 kg [place] Body Weight (kg) 61.27 BMI 17.2 Weight change and time frame No body weight change reported in 3 weeks. Weight Status Underweight Subjective/Other Information RD consult for routine F/U on TF tolerance/continuation. TF continues as prescribed, and well tolerated, according to RN notes. Pt continues on Mechanical ventilation, O2 saturation @ 96%, according to Physical Assessment Histroy notes. Pt continues to present constipation, according to Physical Assessment Histroy notes. 3 failed attempts to wean Pt from Mechanical Ventilation, Pt is back to previous settings in [facility], according to RN notes. Pt is pending authorization for LTAC placement, according to Progress notes. Percent of energy/protein needs met: Prescribed TF-Vital AF 1.2 Inderjit @ 50 ml/hr provides for energy/protein needs (1,450 Kcal/91 g) during LOS, 98% Kcal; 100% AA. Burn Absent Trauma Absent GI Symptoms Constipation Difficulty In Swallowing,Chewing Food Allergy No Skin Integrity/Comment Sacral open wound. Current % PO Other Minimum of two criteria No #1 Nutrition Diagnosis Inadequate oral intake Diagnosis Progress(for reassessment Continues documentation) Is patient on ventilator? Yes Is Patient Ambulatory and/or Out of Bed No REE-([facility]-confined to bed) [phone] Calculation Used for Recommendations [facility] Additional Notes Protein: 1.2-2 g/Kg IBW; 73- 122 g/day. Fluids: 1 ml/Kcal, or as per MD. Nutrition Intervention Nutrition Support: Continue TF-Vital AF 1.2 Inderjit @ 50 ml/hr. Flush: 80 ml water Q 4 hr, or as per MD. Kcal 1,450 Protein (gm) 91 Carbohydrates (gm) 134 Fat (gm) 65 Fluid (mL) 980 Fiber (gm) 6 % RDI: 98% Kcal; 100% AA. Goal #1 Provide at least 75% of energy /protein needs through Enteral Feeding during LOS. Follow-Up By: 05/04/22 Additional Comments Continue monitoring TF tolerance and BM. <DIXIE BROWN - Last Filed: 05/11/22 07:11> Assessment and Plan Assessment and plan: I saw and evaluated the patient. I agree with the findings and the plan of care as documented in the Nurse Practitioner's~note, with the following corrections and additions. Hospitalist Physical - Constitutional Vitals: Temp Pulse Resp BP Pulse Ox 98.9 F 98 H 14 99/62 98 05/11/22 04:00 05/11/22 06:00 05/11/22 06:00 05/11/22 06:00 05/11/22 06:00 HEART Score - HEART Score Troponin: Troponin T 0.031 ng/mL (0.00-0.029) H 04/08/22 17:47 Results - Labs CBC & Chem 7: 05/09/22 15:15 05/09/22 15:15 Labs: Laboratory Last Values WBC 10.7 K/mm3 (4.5-11.0) 05/09/22 15:15 RBC 2.61 M/mm3 (3.65-5.03) L 05/09/22 15:15 Hgb 7.7 gm/dl (11.8-15.2) L 05/09/22 15:15 Hct 23.2 % (35.5-45.6) L 05/09/22 15:15 MCV 89 fl (84-94) 05/09/22 15:15 MCH 30 pg (28-32) 05/09/22 15:15 MCHC 33 % (32-34) 05/09/22 15:15 RDW 14.7 % (13.2-15.2) 05/09/22 15:15 Plt Count 292 K/mm3 (140-440) 05/09/22 15:15 Lymph % (Auto) 8.1 % (13.4-35.0) L 05/09/22 15:15 [place] % (Auto) 4.9 % (0.0-7.3) 05/09/22 15:15 Eos % (Auto) 0.6 % (0.0-4.3) 05/09/22 15:15 Baso % (Auto) 0.3 % (0.0-1.8) 05/09/22 15:15 Lymph # (Auto) 0.9 K/mm3 (1.2-5.4) L 05/09/22 15:15 [place] # (Auto) 0.5 K/mm3 (0.0-0.8) 05/09/22 15:15 Eos # (Auto) 0.1 K/mm3 (0.0-0.4) 05/09/22 15:15 Baso # (Auto) 0.0 K/mm3 (0.0-0.1) 05/09/22 15:15 Add Manual Diff Complete 04/02/22 19:39 Total Counted 100 04/02/22 19:39 Seg Neutrophils % 86.1 % (40.0-70.0) H 05/09/22 15:15 Seg Neuts % (Manual) 94.0 % (40.0-70.0) H 04/02/22 19:39 Band Neutrophils % 0 % 04/02/22 19:39 Lymphocytes % (Manual) 1.0 % (13.4-35.0) L 04/02/22 19:39 Reactive Lymphs % (Man) 0 % 04/02/22 19:39 Monocytes % (Manual) 5.0 % (0.0-7.3) 04/02/22 19:39 Eosinophils % (Manual) 0 % (0.0-4.3) 04/02/22 19:39 Basophils % (Manual) 0 % (0.0-1.8) 04/02/22 19:39 Metamyelocytes % 0 % 04/02/22 19:39 Myelocytes % 0 % 04/02/22 19:39 Promyelocytes % 0 % 04/02/22 19:39 Blast Cells % 0 % 04/02/22 19:39 Nucleated RBC % Not Reportable 04/02/22 19:39 Seg Neutrophils # 9.2 K/mm3 (1.8-7.7) H 05/09/22 15:15 Seg Neutrophils # Man 13.4 K/mm3 (1.8-7.7) H 04/02/22 19:39 Band Neutrophils # 0.0 K/mm3 04/02/22 19:39 Lymphocytes # (Manual) 0.1 K/mm3 (1.2-5.4) L 04/02/22 19:39 Abs React Lymphs (Man) 0.0 K/mm3 04/02/22 19:39 Monocytes # (Manual) 0.7 K/mm3 (0.0-0.8) 04/02/22 19:39 Eosinophils # (Manual) 0.0 K/mm3 (0.0-0.4) 04/02/22 19:39 Basophils # (Manual) 0.0 K/mm3 (0.0-0.1) 04/02/22 19:39 Metamyelocytes # 0.0 K/mm3 04/02/22 19:39 Myelocytes # 0.0 K/mm3 04/02/22 19:39 Promyelocytes # 0.0 K/mm3 04/02/22 19:39 Blast Cells # 0.0 K/mm3 04/02/22 19:39 WBC Morphology Not Reportable 04/02/22 19:39 Hypersegmented Neuts Not Reportable 04/02/22 19:39 Hyposegmented Neuts Not Reportable 04/02/22 19:39 Hypogranular Neuts Not Reportable 04/02/22 19:39 Smudge Cells Not Reportable 04/02/22 19:39 Toxic Granulation Not Reportable 04/02/22 19:39 Toxic Vacuolation Not Reportable 04/02/22 19:39 Dohle Bodies Not Reportable 04/02/22 19:39 Pelger-Huet Anomaly Not Reportable 04/02/22 19:39 Terry Rods Not Reportable 04/02/22 19:39 Platelet Estimate Consistent w auto 04/02/22 19:39 Clumped Platelets Not Reportable 04/02/22 19:39 Plt Clumps, EDTA Not Reportable 04/02/22 19:39 Large Platelets Not Reportable 04/02/22 19:39 Giant Platelets Not Reportable 04/02/22 19:39 Platelet Satelliting Not Reportable 04/02/22 19:39 Plt Morphology Comment Not Reportable 04/02/22 19:39 RBC Morphology Not Reportable 04/02/22 19:39 Dimorphic RBCs Not Reportable 04/02/22 19:39 Polychromasia Not Reportable 04/02/22 19:39 Hypochromasia Not Reportable 04/02/22 19:39 Poikilocytosis Not Reportable 04/02/22 19:39 Anisocytosis 1+ 04/02/22 19:39 Microcytosis Not Reportable 04/02/22 19:39 Macrocytosis Not Reportable 04/02/22 19:39 Spherocytes Not Reportable 04/02/22 19:39 Pappenheimer Bodies Not Reportable 04/02/22 19:39 Sickle Cells Not Reportable 04/02/22 19:39 Target Cells Not Reportable 04/02/22 19:39 Tear Drop Cells Not Reportable 04/02/22 19:39 Ovalocytes Not Reportable 04/02/22 19:39 Helmet Cells Not Reportable 04/02/22 19:39 [place] Bodies Not Reportable 04/02/22 19:39 [place] Rings Not Reportable 04/02/22 19:39 [place] Cells Not Reportable 04/02/22 19:39 Bite Cells Not Reportable 04/02/22 19:39 Crenated Cell Not Reportable 04/02/22 19:39 Elliptocytes Not Reportable 04/02/22 19:39 Acanthocytes (Spur) Not Reportable 04/02/22 19:39 Rouleaux Not Reportable 04/02/22 19:39 Hemoglobin C Crystals Not Reportable 04/02/22 19:39 Schistocytes Not Reportable 04/02/22 19:39 Malaria parasites Not Reportable 04/02/22 19:39 [place] Bodies Not Reportable 04/02/22 19:39 Hem Pathologist Commnt No 04/02/22 19:39 PT 13.6 Sec. (12.2-14.9) 04/13/22 04:30 INR 0.94 (0.87-1.13) 04/13/22 04:30 APTT 35.7 Sec. (24.2-36.6) 04/07/22 03:51 ABG pH 7.383 pH Units (7.350-7.450) 05/04/22 09:36 ABG pCO2 75.0 mm Hg 05/04/22 09:36 ABG pO2 55.4 mm Hg (80.0-90.0) L 05/04/22 09:36 ABG HCO3 43.7 mmol/L (20.0-26.0) H 05/04/22 09:36 ABG O2 Saturation 87.4 % (95.0-99.0) L 05/04/22 09:36 ABG O2 Content 11.0 (0.0-44) 05/04/22 09:36 ABG Base Excess 16.1 mmol/L (-2.0-3.0) H 05/04/22 09:36 ABG Hemoglobin 9.1 gm/dl (14.0-18.0) L 05/04/22 09:36 ABG Carboxyhemoglobin 1.5 % (0.0-5.0) 05/04/22 09:36 ABG Methemoglobin 0.4 % (0.0-1.5) 05/04/22 09:36 Oxyhemoglobin 85.7 % (95.0-99.0) L 05/04/22 09:36 FiO2 30 % 05/04/22 09:36 Sodium 137 mmol/L (137-145) 05/09/22 15:15 Potassium 4.1 mmol/L (3.6-5.0) 05/09/22 15:15 Chloride 92.9 mmol/L (98-107) L 05/09/22 15:15 Carbon Dioxide 40 mmol/L (22-30) H 05/09/22 15:15 Anion Gap 8 mmol/L 05/09/22 15:15 BUN 20 mg/dL (9-20) 05/09/22 15:15 Creatinine < 0.2 mg/dL (0.8-1.3) L 05/09/22 15:15 Estimated GFR > 60 ml/min 05/09/22 15:15 BUN/Creatinine Ratio 100 % 05/09/22 15:15 Glucose 141 mg/dL (75-100) H 05/09/22 15:15 POC Glucose 113 mg/dL (70-105) H 05/10/22 15:14 Lactic Acid 1.90 mmol/L (0.7-2.0) 04/02/22 19:39 Calcium 8.8 mg/dL (8.4-10.2) 05/09/22 15:15 Phosphorus 3.40 mg/dL (2.5-4.5) 05/05/22 04:23 Magnesium 1.90 mg/dL (1.7-2.3) 05/05/22 04:23 Total Bilirubin 0.80 mg/dL (0.1-1.2) 04/02/22 19:39 AST 15 units/L (5-40) 04/02/22 19:39 ALT 9 units/L (7-56) 04/02/22 19:39 Alkaline Phosphatase 43 units/L (35-129) 04/02/22 19:39 Total Creatine Kinase 46 units/L (55-170) L 04/08/22 17:47 CK-MB (CK-2) 2.6 ng/mL (0.0-4.0) 04/08/22 17:47 CK-MB (CK-2) Rel Index 5.6 (0-4) H 04/08/22 17:47 Troponin T 0.031 ng/mL (0.00-0.029) H 04/08/22 17:47 C-Reactive Protein 31.60 mg/dL (0.00-1.30) H 04/04/22 04:18 Total Protein 4.6 g/dL (6.3-8.2) L 04/02/22 19:39 Albumin 2.7 g/dL (3.9-5) L 04/02/22 19:39 Albumin/Globulin Ratio 1.4 % 04/02/22 19:39 Triglycerides 80 mg/dL (2-149) 04/02/22 19:39 Cholesterol 94 mg/dL (50-199) 04/02/22 19:39 LDL Cholesterol Direct 27 mg/dL (50-130) L 04/02/22 19:39 HDL Cholesterol 47 mg/dL (40-59) 04/02/22 19:39 Cholesterol/HDL Ratio 2.00 % 04/02/22 19:39 Procalcitonin 0.08 ng/mL (<0.15) 04/04/22 04:18 Urine Color [place]ac[place] (Yellow) 04/05/22 17:45 Urine Turbidity Cloudy (Clear) 04/05/22 17:45 Urine pH 5.0 (5.0-7.0) 04/05/22 17:45 Ur Specific [place] 1.021 (1.003-1.030) 04/05/22 17:45 Urine Protein 30 mg/dl mg/dL (Negative) 04/05/22 17:45 Urine Glucose (UA) Neg mg/dL (Negative) 04/05/22 17:45 Urine Ketones Tr mg/dL (Negative) 04/05/22 17:45 Urine Blood Sm (Negative) 04/05/22 17:45 Urine Nitrite Neg (Negative) 04/05/22 17:45 Urine Bilirubin Neg (Negative) 04/05/22 17:45 Urine Urobilinogen < 2.0 mg/dL (<2.0) 04/05/22 17:45 Ur Leukocyte Esterase Tr (Negative) 04/05/22 17:45 Urine WBC (Auto) 8.0 /HPF (0.0-6.0) H 04/05/22 17:45 Urine RBC (Auto) 3.0 /HPF (0.0-6.0) 04/05/22 17:45 U Epithel Cells (Auto) 2.0 /HPF (0-13.0) 04/05/22 17:45 Urine Bacteria (Auto) 1+ /HPF (Negative) 04/02/22 Unknown Hyaline Casts 1 /LPF 04/05/22 17:45 Urine Mucus 3+ /HPF 04/05/22 17:45 Nasal Screen MRSA (PCR) Negative (Negative) 04/05/22 12:37 Vancomycin Trough 6.0 ug/mL (5.0-20.0) 04/05/22 18:53 Coronavirus (PCR) Negative (Negative) 04/07/22 14:52 Perez/IV: Voiding Method Condom Catheter Active Medications - Current Medications Current Medications: Generic Name Dose Route Start Last Admin Trade Name Freq PRN Reason Stop Dose Admin Acetaminophen 650 mg 04/02/22 23:53 05/04/22 21:37 Acetaminophen 325 Mg Tab PO 650 mg Q6H PRN Administration Pain MILD(1-3)/Fever >100.5/FAITH Acetylcysteine 200 mg 05/04/22 20:00 05/10/22 19:38 Acetylcysteine 20% 200 Mg/1 Ml *For Inhalation Use* INHALATION 200 mg Q12HRT SEGUNDO Administration Albuterol 2.5 mg 05/05/22 20:00 05/10/22 19:38 Albuterol 2.5 Mg/3 Ml Nebu IH 2.5 mg Q12HRT SEGUNDO Administration Bisacodyl 10 mg 04/07/22 09:44 04/12/22 10:06 Bisacodyl 10 Mg Rect Supp NM 10 mg QDAY PRN Administration Constipation Docusate Sodium 100 mg 04/28/22 10:00 05/10/22 21:25 Docusate Sodium 100 Mg/10 Ml Oral Liqd FEEDTUBE 100 mg BID SEGUNDO Administration Famotidine 20 mg 04/06/22 10:00 05/10/22 21:25 Famotidine 20 Mg Tab FEEDTUBE 20 mg BID SEGUNDO Administration Fentanyl 50 mcg 04/04/22 15:56 05/07/22 22:15 Fentanyl 100 Mcg/2 Ml Inj IV 50 mcg Q2HR PRN Administration For CPOT of greater than 3 Heparin Sodium (Porcine) 5,000 unit 04/03/22 06:00 05/11/22 05:25 Heparin 5,000 Unit/1 Ml Vial SUB-Q 5,000 unit Q8HR SEGUNDO Administration Insulin Human Lispro 0 unit 05/05/22 06:00 05/11/22 05:24 Insulin Lispro 100 Unit/Ml SUB-Q Not Given Q8HR [facility] Protocol Magnesium Hydroxide 30 ml 04/02/22 23:53 Magnesium Hydroxide (Mom) Oral Liqd Udc PO Q4H PRN Constipation Metoprolol Tartrate 12.5 mg 05/03/22 13:00 05/11/22 05:25 Metoprolol Tartrate 25 Mg Tab FEEDTUBE 12.5 mg Q6HR SEGUNDO Administration Ondansetron HCl 4 mg 04/02/22 23:53 Ondansetron 4 Mg/2 Ml Inj IV Q8H PRN Nausea And Vomiting Polyethylene Glycol 17 gm 04/08/22 10:00 05/10/22 09:36 Polyethylene Glycol 3350 17 Gm Powder PO Not Given QDAY SEGUNDO Quetiapine Fumarate 50 mg 04/28/22 10:00 05/10/22 21:25 Quetiapine 25 Mg Tab FEEDTUBE 50 mg BID SEGUNDO Administration Senna 17.6 mg 04/28/22 10:00 05/10/22 21:25 Sennosides Oral Liqd 8.8 Mg/5 Ml Oral Liqd FEEDTUBE 17.6 mg Q12HR SEGUNDO Administration Sodium Chloride 10 ml 04/03/22 10:00 05/10/22 21:26 Sodium Chloride 0.9% 10 Ml Flush Syringe IV 10 ml BID SEGUNDO Administration Sodium Chloride 10 ml 04/02/22 23:53 Sodium Chloride 0.9% 10 Ml Flush Syringe IV PRN PRN LINE FLUSH Nutrition/Malnutrition Assess - Dietary Evaluation Nutrition/Malnutrition Findings: Nutrition Notes Start: 04/04/22 13:13 Freq: Status: Active Protocol: Document 05/04/22 12:27 COLLEEN (Rec: 05/04/22 12:46 COLLEEN [email or web address]) Nutrition Notes Initial or Follow up Reassessment Current Diagnosis Coronary Artery Disease, Decubitus(Pressure Ulcer), Sepsis,Respiratory Failure, Malnutrition Other Pertinent Diagnosis HCAP, ALS, Broncopneumonia, NSTEMI, Cardiomyopathy, ... Current Diet TF-Vital AF 1.2 Inderjit @ 50 ml/hr (since D 04/15). Labs/Tests 05/03: Na 134, Cl 90.5, CO2 38 , BUN 21, Crea <0.2, Glu 126. Pertinent Medications 05/04: Nutritionally unremarkable. Height 5 ft 4.8 in Weight 46.8 kg [place] Body Weight (kg) 61.27 BMI 17.2 Weight change and time frame No body weight change reported in 4 weeks. Weight Status Underweight Subjective/Other Information RD consult for routine F/U on TF tolerance/continuation. TF continues as prescribed, and well tolerated, according to RN notes. Pt continues on Mechanical ventilation, O2 saturation @ 96%, according to Physical Assessment Histroy notes. Pt will be discharged home with family; awaiting home- Vent setup; family declined SNF placement, according to Progress notes. Percent of energy/protein needs met: Prescribed TF-Vital AF 1.2 Inderjit @ 50 ml/hr provides for energy/protein needs (1,450 Kcal/91 g) during LOS, 98% Kcal; 100% AA. Burn Absent Trauma Absent GI Symptoms Constipation Difficulty In Swallowing,Chewing Food Allergy No Skin Integrity/Comment Sacral open wound. Current % PO Other Minimum of two criteria No #1 Nutrition Diagnosis Inadequate oral intake Diagnosis Progress(for reassessment Continues documentation) Is patient on ventilator? Yes Is Patient Ambulatory and/or Out of Bed No REE-([place]-confined to bed) 3975.657 Calculation Used for Recommendations [facility] Additional Notes Protein: 1.2-2 g/Kg IBW; 73- 122 g/day. Fluids: 1 ml/Kcal, or as per MD. Nutrition Intervention Nutrition Support: Continue TF-Vital AF 1.2 Inderjit @ 50 ml/hr. Flush: 80 ml water Q 4 hr, or as per MD. Kcal 1,450 Protein (gm) 91 Carbohydrates (gm) 134 Fat (gm) 65 Fluid (mL) 980 Fiber (gm) 6 % RDI: 98% Kcal; 100% AA. Goal #1 Provide at least 75% of energy /protein needs through Enteral Feeding during LOS. Follow-Up By: 05/11/22 Additional Comments Continue monitoring TF tolerance and BM.
[2022-05-04] MEDS: INSULIN REGULAR, HUMAN 100 UNITS/1 ML SUB-Q SCH ×5 (00:04→23:19)
[2022-05-04] MEDS: ALBUTEROL 2.5 MG/3 ML NEBU IH SCH ×3 (00:19→16:59)
[2022-05-04] MEDS: ACETYLCYSTEINE 20% 200 MG/1 ML *FOR INHALATION USE INHALATION SCH ×2 (00:19→07:47)
[2022-05-04] MEDS: METOPROLOL TARTRATE 25 MG TAB FEEDTUBE SCH ×4 (05:38→23:23)
[2022-05-04] MEDS: HEPARIN 5,000 UNIT/1 ML VIAL SUB-Q SCH ×3 (05:39→21:25)
[2022-05-04 09:49] LABS: ABG Base Excess 16.1 mmol/L (-2.0-3.0); ABG HCO3 43.7 mmol/L (20.0-26.0); ABG Methemoglobin 0.4 % (0.0-1.5); ABG Oxygen Saturation 87.4 % (95.0-99.0); ABG PH 7.383 pH Units (7.350-7.450); ABG PO2 55.4 mm Hg (80.0-90.0)
[2022-05-04] MEDS: DOCUSATE SODIUM 100 MG/10 ML ORAL LIQD FEEDTUBE SCH ×2 (10:20→21:25)
[2022-05-04] MEDS: FAMOTIDINE 20 MG TAB FEEDTUBE SCH ×2 (10:20→21:25)
[2022-05-04] MEDS: POLYETHYLENE GLYCOL 3350 17 GM POWDER PO SCH (10:20)
[2022-05-04] MEDS: SENNOSIDES ORAL LIQD 8.8 MG/5 ML ORAL LIQD FEEDTUBE SCH ×2 (10:20→21:25)
[2022-05-04] MEDS: QUEtiapine 25 MG TAB FEEDTUBE SCH ×2 (10:21→21:25)
[2022-05-04] MEDS: fentaNYL 100 MCG/2 ML INJ IV PRN (12:03)
--- NOTE | 2022-05-04 12:45 | Progress Note ---
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, recently hospitalized at [facility] admitted for acute hypoxemic respiratory failure 2/2 pneumonia Neuro: h/o ALS -s/p precedex, fentanyl gtt -Reorientation as needed -Maintain sleep-wake cycle -As needed analgesia -CT head with no acute intracranial process -Per family patient is nonverbal at baseline but responsive -Seroquel Cardiac: Suspect ischemic coronary artery disease, h/o cardiomyopathy -Cardiology consulted, appreciate recommendations -continue conservative management -Blood pressure monitoring per protocol -s/p Vasopressor support with Levophed -Echocardiogram shows ejection fraction of 40 to 45%, mild global hypokinesis of left ventricle -Nitro patch, BB Respiratory: Acute hypoxic respiratory failure -CCM consulted, appreciate recommendations -Intubated on 04/02 with a 7.50 ETT attempt at the lips -s/p trach on 04/14 and s/p bronch on 04/15 -A.m. vent settings: Assist-control/ PRVC TV 400, rate 14, Peep 10, FiO2 30% -See RT notes for titration -CPT and mucomyst -VAP bundle -SPO2 monitoring GI: Moderate protein calorie malnutrition -24 hours +393 mL -PPI -Peg 04/14 -NTR consulted for tube feedings -BR: Senokot/colace, MiraLAX : Metabolic Alkalosis -Record intake and output -Renally dose medications -Avoid nephrotoxic medications -Daily weights -trend BMP ID: Sepsis, Acute Bronchopneumonia, HAP (Pseudomonas and Enterobacter tracheal aspirate), blood culture with bacillus species -Infectious disease consulted, appreciate recommendation-> signed off -Per infectious disease patient was recently admitted to [facility] but discharged home with home hospice and not giving antibiotics -04/15 Tracheal aspirate with Pseudomonas aeruginosa, Enterobacter aerogenes -04/02 blood culture with bacillus species, 04/05 blood culture NGTD -MRSA (-) -s/p cefepime for 14 days -Monitor WBC and temperature curve Endo: NAD -Avoid hypoglycemia -SSI -Accu-Cheks q 6 Heme: Leukocytosis -Heparin subq -Trend CBC -Transfuse hemoglobin less than 7 -SCDs to BLE while in bed Advance Care Planning - Disease education, care plan, diagnoses, and prognosis were discussed patient's , Carly Lopez, and patient daughter, Kaylee Warren, who translated for #[phone]. They reported that patient was following at [facility] for his ALS and during recent hospitalization at [facility] they were told nothing else can be offered to patient at this time and patient was discharge home with home hospice and PO morphine. First hospice visit was on , 04/01 however, patient became unresponsive 04/02 and they brought in to the hospital. - Goal of care and code status were also addressed at that time. Family wants to wait for a couple days to see how patient respond to current treatment before making a decision. All questions and concerns were addressed at this time. Patient family acknowledged understanding and agreement with care plan. -Patient remains a FULL CODE status. -04/05: Discussion at bedside with interpreting service with Dr. Valdivia and family state they would discuss next steps amongst themselves and let healthcare team know of decisions -04/06: extensive discussion with family ( and son) with Dr. Grayson regarding goals of care -04/08: Extensive discussion with with the use of cosmetic chemist line regarding goals of care; no decision made. Possible consult to surgery for trach/PEG early next week. -04/09: Discussion with and her sister with Dr. Grayson and then with Dr. Pineda-> Consulted surgery for trach/peg -04/30 Insurance Denied LTAC, plan for possible SNF placement now. Case management to arrange -Family declined SNF -Awaiting discharge home with vent setup for home use The high probability of a clinically significant, sudden or life threatening deterioration of the [resp] system(s) required my full and direct attention, intervention and personal management. The aggregate critical care time was [60] minutes. 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 Work-up in the emergency department revealed leukocytosis, elevated troponin and hyponatremia and CXR revealed moderate to large pleural effusion on the right. Patient was having agonal breathing in the emergency department and was intubated. Patient was admitted to the hospitalist service with consults to [facility], cardiology and infectious disease for further work-up. Hospital Course to Date: 04/03: Intubated and Sedated on versed gtt, RASS-5. CT head/brain noted with no acute intracranial abnormality. Plan to initiated precededx gtt and wean off versed for a RASS goal of 0 to -2. CT chect also reviewed, findings are most consistent with acute bronchopneumonia. Continue empiric IV Abx, vent adjustment per CCM. ID consulted. Continue to F/U on cultures. Titrate pressor for MAP above 65. Medical records requested from [facility]. 04/04: Remains stable on the vent, easily arousable on precedex gtt, not following commands. Plan for SAT/SBT today. PRN analgesia for CPOT greater than 3. Fevers improved, cultures and procal pending. Continue current IV abx, ID also consulted. Remains on low dose pressors, titrate pressors for a MAP above 65. 04/05: Long discussion with family with use of translation phone with [facility] regarding goals of care. Family to have meeting amongst themselves and informed care team of decisions. Fentanyl drip added for respiratory distress. Remains on Precedex drip. Antibiotics per ID. Given 2L NS bolus with levophed gtt 04/06: Family discussion with Dr. Grayson for goals of care. CXR shows possible mucus plug, continue CPT as FiO2 is being able to be weaned. Potassium repleted. Weaning fentnyl gtt. 04/07: Ultrasound guided thoracentesis today scheduled, inadequate amount of pleural effusion on so not completed. Patient was started on Levophed overnight which was weaned off this morning however had to be started twice a day. Remains on fentanyl and Precedex. Cardiology discontinued BB and ACEi in setting of hypotension. 04/08: COVID-19 PCR negative. Routine EEG ordered by cardiology which showed ST changes, cardiology aware. They will continue conservative treatment. Repeat troponins 0.030 which are less than admit of 0.048. Dr. Grayson had a long discussion with with the use of cosmetic chemist today at bedside and has not made a decision regarding goals of care. Possible consult to surgery for trach/PEG early next week. Continues to require Precedex and fentanyl ip for sedation. Carvedilol/lisinopril discontinued as patient is continuously on Levophed. 04/09: No acute events reported overnight, remains on fentanyl, Precedex and L evophed drips. Dr. Grayson and Dr. Pineda updated family at bedside extensively today. Consulted surgery for trach/PEG. COVID-19 PCR negative. 04/10: Patient noted to have desaturation episodes, FiO2 increased slightly to 35%. Will add Mucomyst. Remains on fentanyl and Precedex. Off of Levophed. Surgery consulted for trach/PEG. 04/11: FiO2 increased over night likely related to hypoxia, continues on fent gtt, weaning precedex gtt as he is also on Seroquel. Will d/w CCM re scheduled or prn oxycodone 04/12: Periods of hypoxia and tachycardia this am. Symptoms improved post deep suction and tracheal lavage, Repeat CXR noted with no significant change. Continue CPT and mucomyst. Plan for possible trach/PEG tomorrow by general surgery. 04/13: Remains stable on the vent. Patient is wake and tracking but does not follow simple commands. No report of hypoxia from overnight, continue CPT and mucomyst. Plan for track and PEG today by General Surgery. Plan for LTAC placement post procedure, case management to arrange. 04/14: VIRGILIO overnight, Trach and PEG postponed for today by general surgery. Plan for LTAC placement post procedure, case management to arrange. 04/15: S/p Trach and PEG. Up to 80% FiO2 this am, this am CXR noted suggesting possible mucus plug. D/W [facility] plan for bronch today. Continue CPT and mucomyst. Plan of care thoroughly discussed with patient's and son (who translated for ) at the bedside. Per , specialist field engineer had already discussed the risks and benefits of the procedure yesterday. She verbalized understanding and agreed with procedure and current care plan, consent signed. Okay to use PEG-tube for meds this am, resume TF once okay by general Surgery. Case management to arrange LTAC placement. 04/16: s/p Bronchocopy by [facility]. FiO2 down to 60%, angela 10 this am. This am CXR with moderate improvement. Continue CPT and mucomyst, wean Fio2 as tolerated for SPO2 above 92%. Patient is tolerating TF, advance to goal as ordered. Possible LTAC placement, case management to arrange. 04/17: VIRGILIO overnight. remains stable on the vent, recent CXR and this am ABG noted. Continue CPT and mucomyst, wean Fio2 as tolerated. 04/18: Remains stable on the vent, Fio2 down to 55% and peep of 8 this am. Continue to wean as tolerated, CPT, and mucomyst. Dsiposition- LTAC placement, case management to arrange. 04/19: No acute events overnight. Continue current management. 04/20: No acute events overnight, continue current management 04/21: Patient had chest ultrasound which showed trace pleural effusions, chest x-ray improved after the addition of Mucomyst yesterday. FiO2 55-65%. No acute events overnight. more interactive today. 04/22: Seroquel changed to BID, FiO2 was increased to 60%. RT increased FIO2 to 100 d/t desaturation into the 80s but was able to wean down. CCM increased PEEP and decreased FiO2. 04/23: CCM increase PEEP, no acute events reported overnight. 04/24: Spoke to RT about decreasing FiO2 as tolerated. No acute events reported overnight. Continue supportive management. 04/25: Weaning as tolerated. no acute events overnight. RT to attempt CPAP again today 04/26: VIRGILIO overnight. Patient failed PSV trial again this morning. Continue supportive management and daily PST trial. 04/27: Patient failed PSV trial again this am due to episodes of apnea. Continue daily PSV trial as tolerated. Case management to arrange LTAC placement 04/28: Remains stable. Continue daily PSV trial as tolerated. Awaiting approval for LTAC 04/29: VIRGILIO overnight. Continue daily PSV trial. Awaiting approval for LTAC, case management to arrange. 04/30: Patient continue to fail PSV trial. Per case management patient was denied for LTAC, now possible SNF placement. Case managemen to arrange. Continue supportive measures and daily PSV trial as tolerated. 05/01: VIRGILIO overnight. Continue supportive measures and daily PSV trial as tolerated. Possible SNF placement. 05/02: Continue supportive measures and daily PSV trial as tolerated. Possible SNF placement, case management to arrange 05/03: no acute events overnight, CM arranging home vent setup. Family declined SNF. 05/04: RN/RT reports thin secretions, increase in FiO2 for decreased oxygen on ABG. No acute events overnight. Hospitalist Physical - Constitutional Vitals: Temp Pulse Resp BP Pulse Ox 98.5 F 124 H 18 108/72 94 05/04/22 12:02 05/04/22 12:03 05/04/22 12:03 05/04/22 12:03 05/04/22 12:00 General appearance: Present: no acute distress, cachectic, other (trach/) - EENT Eyes: Present: PERRL, EOM intact ENT: poor dentition - Respiratory Respiratory effort: normal Respiratory: bilateral: diminished - Cardiovascular Rhythm: regular Heart Sounds: Present: S1 & S2. Absent: systolic murmur, diastolic murmur - Extremities Extremities: no ischemia, pulses intact, pulses symmetrical, No edema, normal temperature, normal color Peripheral Pulses: within normal limits - Abdominal General gastrointestinal: soft, non-tender, non-distended, normal bowel sounds - Psychiatric Psychiatric: other - Neurologic Neurologic: other (moves BUE, intact cough/gag) - Allied Health Allied health notes reviewed: nursing, RT, social work HEART Score - HEART Score Troponin: Troponin T 0.031 ng/mL (0.00-0.029) H 04/08/22 17:47 Results - Labs CBC & Chem 7: 05/03/22 04:02 05/03/22 04:02 Labs: Laboratory Last Values WBC 12.3 K/mm3 (4.5-11.0) H 05/03/22 04:02 RBC 2.83 M/mm3 (3.65-5.03) L 05/03/22 04:02 Hgb 8.4 gm/dl (11.8-15.2) L 05/03/22 04:02 Hct 26.0 % (35.5-45.6) L 05/03/22 04:02 MCV 92 fl (84-94) 05/03/22 04:02 MCH 30 pg (28-32) 05/03/22 04:02 MCHC 32 % (32-34) 05/03/22 04:02 RDW 14.0 % (13.2-15.2) 05/03/22 04:02 Plt Count 329 K/mm3 (140-440) 05/03/22 04:02 Lymph % (Auto) 4.3 % (13.4-35.0) L 04/07/22 03:51 [place] % (Auto) 8.8 % (0.0-7.3) H 04/07/22 03:51 Eos % (Auto) 0.1 % (0.0-4.3) 04/07/22 03:51 Baso % (Auto) 0.2 % (0.0-1.8) 04/07/22 03:51 Lymph # (Auto) 0.6 K/mm3 (1.2-5.4) L 04/07/22 03:51 [place] # (Auto) 1.3 K/mm3 (0.0-0.8) H 04/07/22 03:51 Eos # (Auto) 0.0 K/mm3 (0.0-0.4) 04/07/22 03:51 Baso # (Auto) 0.0 K/mm3 (0.0-0.1) 04/07/22 03:51 Add Manual Diff Complete 04/02/22 19:39 Total Counted 100 04/02/22 19:39 Seg Neutrophils % 86.6 % (40.0-70.0) H 04/07/22 03:51 Seg Neuts % (Manual) 94.0 % (40.0-70.0) H 04/02/22 19:39 Band Neutrophils % 0 % 04/02/22 19:39 Lymphocytes % (Manual) 1.0 % (13.4-35.0) L 04/02/22 19:39 Reactive Lymphs % (Man) 0 % 04/02/22 19:39 Monocytes % (Manual) 5.0 % (0.0-7.3) 04/02/22 19:39 Eosinophils % (Manual) 0 % (0.0-4.3) 04/02/22 19:39 Basophils % (Manual) 0 % (0.0-1.8) 04/02/22 19:39 Metamyelocytes % 0 % 04/02/22 19:39 Myelocytes % 0 % 04/02/22 19:39 Promyelocytes % 0 % 04/02/22 19:39 Blast Cells % 0 % 04/02/22 19:39 Nucleated RBC % Not Reportable 04/02/22 19:39 Seg Neutrophils # 12.7 K/mm3 (1.8-7.7) H 04/07/22 03:51 Seg Neutrophils # Man 13.4 K/mm3 (1.8-7.7) H 04/02/22 19:39 Band Neutrophils # 0.0 K/mm3 04/02/22 19:39 Lymphocytes # (Manual) 0.1 K/mm3 (1.2-5.4) L 04/02/22 19:39 Abs React Lymphs (Man) 0.0 K/mm3 04/02/22 19:39 Monocytes # (Manual) 0.7 K/mm3 (0.0-0.8) 04/02/22 19:39 Eosinophils # (Manual) 0.0 K/mm3 (0.0-0.4) 04/02/22 19:39 Basophils # (Manual) 0.0 K/mm3 (0.0-0.1) 04/02/22 19:39 Metamyelocytes # 0.0 K/mm3 04/02/22 19:39 Myelocytes # 0.0 K/mm3 04/02/22 19:39 Promyelocytes # 0.0 K/mm3 04/02/22 19:39 Blast Cells # 0.0 K/mm3 04/02/22 19:39 WBC Morphology Not Reportable 04/02/22 19:39 Hypersegmented Neuts Not Reportable 04/02/22 19:39 Hyposegmented Neuts Not Reportable 04/02/22 19:39 Hypogranular Neuts Not Reportable 04/02/22 19:39 Smudge Cells Not Reportable 04/02/22 19:39 Toxic Granulation Not Reportable 04/02/22 19:39 Toxic Vacuolation Not Reportable 04/02/22 19:39 Dohle Bodies Not Reportable 04/02/22 19:39 Pelger-Huet Anomaly Not Reportable 04/02/22 19:39 Terry Rods Not Reportable 04/02/22 19:39 Platelet Estimate Consistent w auto 04/02/22 19:39 Clumped Platelets Not Reportable 04/02/22 19:39 Plt Clumps, EDTA Not Reportable 04/02/22 19:39 Large Platelets Not Reportable 04/02/22 19:39 Giant Platelets Not Reportable 04/02/22 19:39 Platelet Satelliting Not Reportable 04/02/22 19:39 Plt Morphology Comment Not Reportable 04/02/22 19:39 RBC Morphology Not Reportable 04/02/22 19:39 Dimorphic RBCs Not Reportable 04/02/22 19:39 Polychromasia Not Reportable 04/02/22 19:39 Hypochromasia Not Reportable 04/02/22 19:39 Poikilocytosis Not Reportable 04/02/22 19:39 Anisocytosis 1+ 04/02/22 19:39 Microcytosis Not Reportable 04/02/22 19:39 Macrocytosis Not Reportable 04/02/22 19:39 Spherocytes Not Reportable 04/02/22 19:39 Pappenheimer Bodies Not Reportable 04/02/22 19:39 Sickle Cells Not Reportable 04/02/22 19:39 Target Cells Not Reportable 04/02/22 19:39 Tear Drop Cells Not Reportable 04/02/22 19:39 Ovalocytes Not Reportable 04/02/22 19:39 Helmet Cells Not Reportable 04/02/22 19:39 Patricio-Quentin Bodies Not Reportable 04/02/22 19:39 [place] Rings Not Reportable 04/02/22 19:39 Rank[place] Cells Not Reportable 04/02/22 19:39 Bite Cells Not Reportable 04/02/22 19:39 Crenated Cell Not Reportable 04/02/22 19:39 Elliptocytes Not Reportable 04/02/22 19:39 Acanthocytes (Spur) Not Reportable 04/02/22 19:39 Rouleaux Not Reportable 04/02/22 19:39 Hemoglobin C Crystals Not Reportable 04/02/22 19:39 Schistocytes Not Reportable 04/02/22 19:39 Malaria parasites Not Reportable 04/02/22 19:39 [place] Bodies Not Reportable 04/02/22 19:39 Hem Pathologist Commnt No 04/02/22 19:39 PT 13.6 Sec. (12.2-14.9) 04/13/22 04:30 INR 0.94 (0.87-1.13) 04/13/22 04:30 APTT 35.7 Sec. (24.2-36.6) 04/07/22 03:51 ABG pH 7.383 pH Units (7.350-7.450) 05/04/22 09:36 ABG pCO2 75.0 mm Hg 05/04/22 09:36 ABG pO2 55.4 mm Hg (80.0-90.0) L 05/04/22 09:36 ABG HCO3 43.7 mmol/L (20.0-26.0) H 05/04/22 09:36 ABG O2 Saturation 87.4 % (95.0-99.0) L 05/04/22 09:36 ABG O2 Content 11.0 (0.0-44) 05/04/22 09:36 ABG Base Excess 16.1 mmol/L (-2.0-3.0) H 05/04/22 09:36 ABG Hemoglobin 9.1 gm/dl (14.0-18.0) L 05/04/22 09:36 ABG Carboxyhemoglobin 1.5 % (0.0-5.0) 05/04/22 09:36 ABG Methemoglobin 0.4 % (0.0-1.5) 05/04/22 09:36 Oxyhemoglobin 85.7 % (95.0-99.0) L 05/04/22 09:36 FiO2 30 % 05/04/22 09:36 Sodium 134 mmol/L (137-145) L 05/03/22 04:02 Potassium 4.3 mmol/L (3.6-5.0) 05/03/22 04:02 Chloride 90.5 mmol/L (98-107) L 05/03/22 04:02 Carbon Dioxide 38 mmol/L (22-30) H 05/03/22 04:02 Anion Gap 10 mmol/L 05/03/22 04:02 BUN 21 mg/dL (9-20) H 05/03/22 04:02 Creatinine < 0.2 mg/dL (0.8-1.3) L 05/03/22 04:02 Estimated GFR > 60 ml/min 05/03/22 04:02 BUN/Creatinine Ratio 105 % 05/03/22 04:02 Glucose 126 mg/dL (75-100) H 05/03/22 04:02 POC Glucose 131 mg/dL (70-105) H 05/03/22 17:42 Lactic Acid 1.90 mmol/L (0.7-2.0) 04/02/22 19:39 Calcium 8.9 mg/dL (8.4-10.2) 05/03/22 04:02 Phosphorus 3.40 mg/dL (2.5-4.5) 05/03/22 04:02 Magnesium 1.90 mg/dL (1.7-2.3) 05/03/22 04:02 Total Bilirubin 0.80 mg/dL (0.1-1.2) 04/02/22 19:39 AST 15 units/L (5-40) 04/02/22 19:39 ALT 9 units/L (7-56) 04/02/22 19:39 Alkaline Phosphatase 43 units/L (35-129) 04/02/22 19:39 Total Creatine Kinase 46 units/L (55-170) L 04/08/22 17:47 CK-MB (CK-2) 2.6 ng/mL (0.0-4.0) 04/08/22 17:47 CK-MB (CK-2) Rel Index 5.6 (0-4) H 04/08/22 17:47 Troponin T 0.031 ng/mL (0.00-0.029) H 04/08/22 17:47 C-Reactive Protein 31.60 mg/dL (0.00-1.30) H 04/04/22 04:18 Total Protein 4.6 g/dL (6.3-8.2) L 04/02/22 19:39 Albumin 2.7 g/dL (3.9-5) L 04/02/22 19:39 Albumin/Globulin Ratio 1.4 % 04/02/22 19:39 Triglycerides 80 mg/dL (2-149) 04/02/22 19:39 Cholesterol 94 mg/dL (50-199) 04/02/22 19:39 LDL Cholesterol Direct 27 mg/dL (50-130) L 04/02/22 19:39 HDL Cholesterol 47 mg/dL (40-59) 04/02/22 19:39 Cholesterol/HDL Ratio 2.00 % 04/02/22 19:39 Procalcitonin 0.08 ng/mL (<0.15) 04/04/22 04:18 Urine Color [place]ac[place] (Yellow) 04/05/22 17:45 Urine Turbidity Cloudy (Clear) 04/05/22 17:45 Urine pH 5.0 (5.0-7.0) 04/05/22 17:45 Ur Specific [place] 1.021 (1.003-1.030) 04/05/22 17:45 Urine Protein 30 mg/dl mg/dL (Negative) 04/05/22 17:45 Urine Glucose (UA) Neg mg/dL (Negative) 04/05/22 17:45 Urine Ketones Tr mg/dL (Negative) 04/05/22 17:45 Urine Blood Sm (Negative) 04/05/22 17:45 Urine Nitrite Neg (Negative) 04/05/22 17:45 Urine Bilirubin Neg (Negative) 04/05/22 17:45 Urine Urobilinogen < 2.0 mg/dL (<2.0) 04/05/22 17:45 Ur Leukocyte Esterase Tr (Negative) 04/05/22 17:45 Urine WBC (Auto) 8.0 /HPF (0.0-6.0) H 04/05/22 17:45 Urine RBC (Auto) 3.0 /HPF (0.0-6.0) 04/05/22 17:45 U Epithel Cells (Auto) 2.0 /HPF (0-13.0) 04/05/22 17:45 Urine Bacteria (Auto) 1+ /HPF (Negative) 04/02/22 Unknown Hyaline Casts 1 /LPF 04/05/22 17:45 Urine Mucus 3+ /HPF 04/05/22 17:45 Nasal Screen MRSA (PCR) Negative (Negative) 04/05/22 12:37 Vancomycin Trough 6.0 ug/mL (5.0-20.0) 04/05/22 18:53 Coronavirus (PCR) Negative (Negative) 04/07/22 14:52 Microbiology: Microbiology 04/15/22 17:57 Bronchial Washings - Right Middle Lobe Respiratory Culture - Final Pseudomonas Aeruginosa Perez/IV: Voiding Method Condom Catheter Active Medications - Current Medications Current Medications: Generic Name Dose Route Start Last Admin Trade Name Freq PRN Reason Stop Dose Admin Acetaminophen 650 mg 04/02/22 23:53 05/03/22 20:51 Acetaminophen 325 Mg Tab PO 650 mg Q6H PRN Administration Pain MILD(1-3)/Fever >100.5/FAITH Acetylcysteine 200 mg 04/21/22 16:00 05/04/22 07:47 Acetylcysteine 20% 200 Mg/1 Ml *For Inhalation Use* INHALATION Not Given Q8HRT [facility] Albuterol 2.5 mg 04/06/22 16:00 05/04/22 07:47 Albuterol 2.5 Mg/3 Ml Nebu IH 2.5 mg Q8HRT SEGUNDO Administration Bisacodyl 10 mg 04/07/22 09:44 04/12/22 10:06 Bisacodyl 10 Mg Rect Supp NJ 10 mg QDAY PRN Administration Constipation Dextrose 50 ml 04/06/22 17:54 Dextrose 50% In Water (25gm) 50 Ml Syringe IV Q30MIN PRN Hypoglycemia Protocol Docusate Sodium 100 mg 04/28/22 10:00 05/04/22 10:20 Docusate Sodium 100 Mg/10 Ml Oral Liqd FEEDTUBE 100 mg BID SEGUNDO Administration Famotidine 20 mg 04/06/22 10:00 05/04/22 10:20 Famotidine 20 Mg Tab FEEDTUBE 20 mg BID SEGUNDO Administration Fentanyl 50 mcg 04/04/22 15:56 05/04/22 12:03 Fentanyl 100 Mcg/2 Ml Inj IV 50 mcg Q2HR PRN Administration For CPOT of greater than 3 Heparin Sodium (Porcine) 5,000 unit 04/03/22 06:00 05/04/22 05:39 Heparin 5,000 Unit/1 Ml Vial SUB-Q 5,000 unit Q8HR SEGUNDO Administration Insulin Human Regular 0 units 04/06/22 18:00 05/04/22 10:47 Insulin Regular, Human 100 Units/1 Ml SUB-Q Not Given Q6H [facility] Protocol Magnesium Hydroxide 30 ml 04/02/22 23:53 Magnesium Hydroxide (Mom) Oral Liqd Udc PO Q4H PRN Constipation Metoprolol Tartrate 12.5 mg 05/03/22 13:00 05/04/22 12:03 Metoprolol Tartrate 25 Mg Tab FEEDTUBE 12.5 mg Q6HR SEGUNDO Administration Ondansetron HCl 4 mg 04/02/22 23:53 Ondansetron 4 Mg/2 Ml Inj IV Q8H PRN Nausea And Vomiting Polyethylene Glycol 17 gm 04/08/22 10:00 05/04/22 10:20 Polyethylene Glycol 3350 17 Gm Powder PO 17 gm QDAY SEGUNDO Administration Quetiapine Fumarate 50 mg 04/28/22 10:00 05/04/22 10:21 Quetiapine 25 Mg Tab FEEDTUBE 50 mg BID SEGUNDO Administration Senna 17.6 mg 04/28/22 10:00 05/04/22 10:20 Sennosides Oral Liqd 8.8 Mg/5 Ml Oral Liqd FEEDTUBE 17.6 mg Q12HR SEGUNDO Administration Sodium Chloride 10 ml 04/03/22 10:00 05/04/22 10:21 Sodium Chloride 0.9% 10 Ml Flush Syringe IV 10 ml BID SEGUNDO Administration Sodium Chloride 10 ml 04/02/22 23:53 Sodium Chloride 0.9% 10 Ml Flush Syringe IV PRN PRN LINE FLUSH Nutrition/Malnutrition Assess - Dietary Evaluation Nutrition/Malnutrition Findings: Nutrition Notes Start: 04/04/22 13:13 Freq: Status: Active Protocol: Document 04/27/22 11:53 COLLEEN (Rec: 04/27/22 12:21 COLLEEN [id number]) Nutrition Notes Initial or Follow up Reassessment Current Diagnosis Coronary Artery Disease, Decubitus(Pressure Ulcer), Sepsis,Respiratory Failure, Malnutrition Other Pertinent Diagnosis HCAP, HFpEF, ALS, Pleural Effusion, R-Lung Collapse, .. . Current Diet TF-Vital AF 1.2 Inderjit @ 50 ml/hr (since D 04/15). Labs/Tests 04/27: Cl 93.2, CO2 37, Crea < 0.2, Glu 114. Pertinent Medications 04/27: Nutritionally unremarkable. Height 5 ft 4.8 in Weight 46.8 kg [employer] Body Weight (kg) 61.27 BMI 17.2 Weight change and time frame No body weight change reported in 3 weeks. Weight Status Underweight Subjective/Other Information RD consult for routine F/U on TF tolerance/continuation. TF continues as prescribed, and well tolerated, according to RN notes. Pt continues on Mechanical ventilation, O2 saturation @ 96%, according to Physical Assessment Histroy notes. Pt continues to present constipation, according to Physical Assessment Histroy notes. 3 failed attempts to wean Pt from Mechanical Ventilation, Pt is back to previous settings in [facility], according to RN notes. Pt is pending authorization for LTAC placement, according to Progress notes. Percent of energy/protein needs met: Prescribed TF-Vital AF 1.2 Inderjit @ 50 ml/hr provides for energy/protein needs (1,450 Kcal/91 g) during LOS, 98% Kcal; 100% AA. Burn Absent Trauma Absent GI Symptoms Constipation Difficulty In Swallowing,Chewing Food Allergy No Skin Integrity/Comment Sacral open wound. Current % PO Other Minimum of two criteria No #1 Nutrition Diagnosis Inadequate oral intake Diagnosis Progress(for reassessment Continues documentation) Is patient on ventilator? Yes Is Patient Ambulatory and/or Out of Bed No REE-([facility]-confined to bed) [phone] Calculation Used for Recommendations [facility] Additional Notes Protein: 1.2-2 g/Kg IBW; 73- 122 g/day. Fluids: 1 ml/Kcal, or as per MD. Nutrition Intervention Nutrition Support: Continue TF-Vital AF 1.2 Inderjit @ 50 ml/hr. Flush: 80 ml water Q 4 hr, or as per MD. Kcal 1,450 Protein (gm) 91 Carbohydrates (gm) 134 Fat (gm) 65 Fluid (mL) 980 Fiber (gm) 6 % RDI: 98% Kcal; 100% AA. Goal #1 Provide at least 75% of energy /protein needs through Enteral Feeding during LOS. Follow-Up By: 05/04/22 Additional Comments Continue monitoring TF tolerance and BM. <NORM GRAYSON - Last Filed: 05/13/22 12:23> Assessment and Plan Assessment and plan: I saw and evaluated the patient. Discussed with the nurse practitioner and agree with their findings and plan as documented in this note. Hospitalist Physical - Constitutional Vitals: Temp Pulse Resp BP Pulse Ox 98.4 F 108 H 14 115/75 92 05/13/22 08:00 05/13/22 11:08 05/13/22 11:00 05/13/22 11:08 05/13/22 11:00 HEART Score - HEART Score Troponin: Troponin T 0.031 ng/mL (0.00-0.029) H 04/08/22 17:47 Results - Labs CBC & Chem 7: 05/13/22 04:02 05/13/22 04:02 Labs: Laboratory Last Values WBC 13.3 K/mm3 (4.5-11.0) H 05/13/22 04:02 RBC 3.14 M/mm3 (3.65-5.03) L 05/13/22 04:02 Hgb 8.7 gm/dl (11.8-15.2) L 05/13/22 04:02 Hct 28.0 % (35.5-45.6) L 05/13/22 04:02 MCV 89 fl (84-94) 05/13/22 04:02 MCH 28 pg (28-32) 05/13/22 04:02 MCHC 31 % (32-34) L 05/13/22 04:02 RDW 15.2 % (13.2-15.2) 05/13/22 04:02 Plt Count 418 K/mm3 (140-440) 05/13/22 04:02 Lymph % (Auto) 8.1 % (13.4-35.0) L 05/09/22 15:15 [place] % (Auto) 4.9 % (0.0-7.3) 05/09/22 15:15 Eos % (Auto) 0.6 % (0.0-4.3) 05/09/22 15:15 Baso % (Auto) 0.3 % (0.0-1.8) 05/09/22 15:15 Lymph # (Auto) 0.9 K/mm3 (1.2-5.4) L 05/09/22 15:15 [place] # (Auto) 0.5 K/mm3 (0.0-0.8) 05/09/22 15:15 Eos # (Auto) 0.1 K/mm3 (0.0-0.4) 05/09/22 15:15 Baso # (Auto) 0.0 K/mm3 (0.0-0.1) 05/09/22 15:15 Add Manual Diff Complete 04/02/22 19:39 Total Counted 100 04/02/22 19:39 Seg Neutrophils % 86.1 % (40.0-70.0) H 05/09/22 15:15 Seg Neuts % (Manual) 94.0 % (40.0-70.0) H 04/02/22 19:39 Band Neutrophils % 0 % 04/02/22 19:39 Lymphocytes % (Manual) 1.0 % (13.4-35.0) L 04/02/22 19:39 Reactive Lymphs % (Man) 0 % 04/02/22 19:39 Monocytes % (Manual) 5.0 % (0.0-7.3) 04/02/22 19:39 Eosinophils % (Manual) 0 % (0.0-4.3) 04/02/22 19:39 Basophils % (Manual) 0 % (0.0-1.8) 04/02/22 19:39 Metamyelocytes % 0 % 04/02/22 19:39 Myelocytes % 0 % 04/02/22 19:39 Promyelocytes % 0 % 04/02/22 19:39 Blast Cells % 0 % 04/02/22 19:39 Nucleated RBC % Not Reportable 04/02/22 19:39 Seg Neutrophils # 9.2 K/mm3 (1.8-7.7) H 05/09/22 15:15 Seg Neutrophils # Man 13.4 K/mm3 (1.8-7.7) H 04/02/22 19:39 Band Neutrophils # 0.0 K/mm3 04/02/22 19:39 Lymphocytes # (Manual) 0.1 K/mm3 (1.2-5.4) L 04/02/22 19:39 Abs React Lymphs (Man) 0.0 K/mm3 04/02/22 19:39 Monocytes # (Manual) 0.7 K/mm3 (0.0-0.8) 04/02/22 19:39 Eosinophils # (Manual) 0.0 K/mm3 (0.0-0.4) 04/02/22 19:39 Basophils # (Manual) 0.0 K/mm3 (0.0-0.1) 04/02/22 19:39 Metamyelocytes # 0.0 K/mm3 04/02/22 19:39 Myelocytes # 0.0 K/mm3 04/02/22 19:39 Promyelocytes # 0.0 K/mm3 04/02/22 19:39 Blast Cells # 0.0 K/mm3 04/02/22 19:39 WBC Morphology Not Reportable 04/02/22 19:39 Hypersegmented Neuts Not Reportable 04/02/22 19:39 Hyposegmented Neuts Not Reportable 04/02/22 19:39 Hypogranular Neuts Not Reportable 04/02/22 19:39 Smudge Cells Not Reportable 04/02/22 19:39 Toxic Granulation Not Reportable 04/02/22 19:39 Toxic Vacuolation Not Reportable 04/02/22 19:39 Dohle Bodies Not Reportable 04/02/22 19:39 Pelger-Huet Anomaly Not Reportable 04/02/22 19:39 Terry Rods Not Reportable 04/02/22 19:39 Platelet Estimate Consistent w auto 04/02/22 19:39 Clumped Platelets Not Reportable 04/02/22 19:39 Plt Clumps, EDTA Not Reportable 04/02/22 19:39 Large Platelets Not Reportable 04/02/22 19:39 Giant Platelets Not Reportable 04/02/22 19:39 Platelet Satelliting Not Reportable 04/02/22 19:39 Plt Morphology Comment Not Reportable 04/02/22 19:39 RBC Morphology Not Reportable 04/02/22 19:39 Dimorphic RBCs Not Reportable 04/02/22 19:39 Polychromasia Not Reportable 04/02/22 19:39 Hypochromasia Not Reportable 04/02/22 19:39 Poikilocytosis Not Reportable 04/02/22 19:39 Anisocytosis 1+ 04/02/22 19:39 Microcytosis Not Reportable 04/02/22 19:39 Macrocytosis Not Reportable 04/02/22 19:39 Spherocytes Not Reportable 04/02/22 19:39 Pappenheimer Bodies Not Reportable 04/02/22 19:39 Sickle Cells Not Reportable 04/02/22 19:39 Target Cells Not Reportable 04/02/22 19:39 Tear Drop Cells Not Reportable 04/02/22 19:39 Ovalocytes Not Reportable 04/02/22 19:39 Helmet Cells Not Reportable 04/02/22 19:39 Patricio-Quentin Bodies Not Reportable 04/02/22 19:39 [place] Rings Not Reportable 04/02/22 19:39 [place] Cells Not Reportable 04/02/22 19:39 Bite Cells Not Reportable 04/02/22 19:39 Crenated Cell Not Reportable 04/02/22 19:39 Elliptocytes Not Reportable 04/02/22 19:39 Acanthocytes (Spur) Not Reportable 04/02/22 19:39 Rouleaux Not Reportable 04/02/22 19:39 Hemoglobin C Crystals Not Reportable 04/02/22 19:39 Schistocytes Not Reportable 04/02/22 19:39 Malaria parasites Not Reportable 04/02/22 19:39 [place] Bodies Not Reportable 04/02/22 19:39 Hem Pathologist Commnt No 04/02/22 19:39 PT 13.6 Sec. (12.2-14.9) 04/13/22 04:30 INR 0.94 (0.87-1.13) 04/13/22 04:30 APTT 35.7 Sec. (24.2-36.6) 04/07/22 03:51 ABG pH 7.383 pH Units (7.350-7.450) 05/04/22 09:36 ABG pCO2 75.0 mm Hg 05/04/22 09:36 ABG pO2 55.4 mm Hg (80.0-90.0) L 05/04/22 09:36 ABG HCO3 43.7 mmol/L (20.0-26.0) H 05/04/22 09:36 ABG O2 Saturation 87.4 % (95.0-99.0) L 05/04/22 09:36 ABG O2 Content 11.0 (0.0-44) 05/04/22 09:36 ABG Base Excess 16.1 mmol/L (-2.0-3.0) H 05/04/22 09:36 ABG Hemoglobin 9.1 gm/dl (14.0-18.0) L 05/04/22 09:36 ABG Carboxyhemoglobin 1.5 % (0.0-5.0) 05/04/22 09:36 ABG Methemoglobin 0.4 % (0.0-1.5) 05/04/22 09:36 Oxyhemoglobin 85.7 % (95.0-99.0) L 05/04/22 09:36 FiO2 30 % 05/04/22 09:36 Sodium 135 mmol/L (137-145) L 05/13/22 04:02 Potassium 4.2 mmol/L (3.6-5.0) 05/13/22 04:02 Chloride 91.1 mmol/L (98-107) L 05/13/22 04:02 Carbon Dioxide 40 mmol/L (22-30) H 05/13/22 04:02 Anion Gap 8 mmol/L 05/13/22 04:02 BUN 23 mg/dL (9-20) H 05/13/22 04:02 Creatinine < 0.2 mg/dL (0.8-1.3) L 05/13/22 04:02 Estimated GFR > 60 ml/min 05/13/22 04:02 BUN/Creatinine Ratio 115 % 05/13/22 04:02 Glucose 139 mg/dL (75-100) H 05/13/22 04:02 POC Glucose 129 mg/dL (70-105) H 05/13/22 06:32 Lactic Acid 1.90 mmol/L (0.7-2.0) 04/02/22 19:39 Calcium 8.6 mg/dL (8.4-10.2) 05/13/22 04:02 Phosphorus 3.40 mg/dL (2.5-4.5) 05/05/22 04:23 Magnesium 1.90 mg/dL (1.7-2.3) 05/05/22 04:23 Total Bilirubin 0.80 mg/dL (0.1-1.2) 04/02/22 19:39 AST 15 units/L (5-40) 04/02/22 19:39 ALT 9 units/L (7-56) 04/02/22 19:39 Alkaline Phosphatase 43 units/L (35-129) 04/02/22 19:39 Total Creatine Kinase 46 units/L (55-170) L 04/08/22 17:47 CK-MB (CK-2) 2.6 ng/mL (0.0-4.0) 04/08/22 17:47 CK-MB (CK-2) Rel Index 5.6 (0-4) H 04/08/22 17:47 Troponin T 0.031 ng/mL (0.00-0.029) H 04/08/22 17:47 C-Reactive Protein 31.60 mg/dL (0.00-1.30) H 04/04/22 04:18 Total Protein 4.6 g/dL (6.3-8.2) L 04/02/22 19:39 Albumin 2.7 g/dL (3.9-5) L 04/02/22 19:39 Albumin/Globulin Ratio 1.4 % 04/02/22 19:39 Triglycerides 80 mg/dL (2-149) 04/02/22 19:39 Cholesterol 94 mg/dL (50-199) 04/02/22 19:39 LDL Cholesterol Direct 27 mg/dL (50-130) L 04/02/22 19:39 HDL Cholesterol 47 mg/dL (40-59) 04/02/22 19:39 Cholesterol/HDL Ratio 2.00 % 04/02/22 19:39 Procalcitonin 0.08 ng/mL (<0.15) 04/04/22 04:18 Urine Color [place] (Yellow) 04/05/22 17:45 Urine Turbidity Cloudy (Clear) 04/05/22 17:45 Urine pH 5.0 (5.0-7.0) 04/05/22 17:45 Ur Specific [place] 1.021 (1.003-1.030) 04/05/22 17:45 Urine Protein 30 mg/dl mg/dL (Negative) 04/05/22 17:45 Urine Glucose (UA) Neg mg/dL (Negative) 04/05/22 17:45 Urine Ketones Tr mg/dL (Negative) 04/05/22 17:45 Urine Blood Sm (Negative) 04/05/22 17:45 Urine Nitrite Neg (Negative) 04/05/22 17:45 Urine Bilirubin Neg (Negative) 04/05/22 17:45 Urine Urobilinogen < 2.0 mg/dL (<2.0) 04/05/22 17:45 Ur Leukocyte Esterase Tr (Negative) 04/05/22 17:45 Urine WBC (Auto) 8.0 /HPF (0.0-6.0) H 04/05/22 17:45 Urine RBC (Auto) 3.0 /HPF (0.0-6.0) 04/05/22 17:45 U Epithel Cells (Auto) 2.0 /HPF (0-13.0) 04/05/22 17:45 Urine Bacteria (Auto) 1+ /HPF (Negative) 04/02/22 Unknown Hyaline Casts 1 /LPF 04/05/22 17:45 Urine Mucus 3+ /HPF 04/05/22 17:45 Nasal Screen MRSA (PCR) Negative (Negative) 04/05/22 12:37 Vancomycin Trough 6.0 ug/mL (5.0-20.0) 04/05/22 18:53 Coronavirus (PCR) Negative (Negative) 04/07/22 14:52 Perez/IV: Voiding Method Condom Catheter Active Medications - Current Medications Current Medications: Generic Name Dose Route Start Last Admin Trade Name Freq PRN Reason Stop Dose Admin Acetaminophen 650 mg 04/02/22 23:53 05/04/22 21:37 Acetaminophen 325 Mg Tab PO 650 mg Q6H PRN Administration Pain MILD(1-3)/Fever >100.5/FAITH Acetylcysteine 200 mg 05/04/22 20:00 05/13/22 08:44 Acetylcysteine 20% 200 Mg/1 Ml *For Inhalation Use* INHALATION 200 mg Q12HRT SEGUNDO Administration Albuterol 2.5 mg 05/05/22 20:00 05/13/22 08:43 Albuterol 2.5 Mg/3 Ml Nebu IH 2.5 mg Q12HRT SEGUNDO Administration Bisacodyl 10 mg 04/07/22 09:44 04/12/22 10:06 Bisacodyl 10 Mg Rect Supp [place] 10 mg QDAY PRN Administration Constipation Docusate Sodium 100 mg 04/28/22 10:00 05/13/22 11:24 Docusate Sodium 100 Mg/10 Ml Oral Liqd FEEDTUBE Not Given BID SEGUNDO Famotidine 20 mg 04/06/22 10:00 05/13/22 11:09 Famotidine 20 Mg Tab FEEDTUBE 20 mg BID SEGUNDO Administration Fentanyl 50 mcg 04/04/22 15:56 05/11/22 22:00 Fentanyl 100 Mcg/2 Ml Inj IV 50 mcg Q2HR PRN Administration For CPOT of greater than 3 Heparin Sodium (Porcine) 5,000 unit 04/03/22 06:00 05/13/22 06:44 Heparin 5,000 Unit/1 Ml Vial SUB-Q 5,000 unit Q8HR SEGUNDO Administration Insulin Human Lispro 0 unit 05/05/22 06:00 05/13/22 06:44 Insulin Lispro 100 Unit/Ml SUB-Q Not Given Q8HR [facility] Protocol Magnesium Hydroxide 30 ml 04/02/22 23:53 Magnesium Hydroxide (Mom) Oral Liqd Udc PO Q4H PRN Constipation Metoprolol Tartrate 12.5 mg 05/03/22 13:00 05/13/22 11:08 Metoprolol Tartrate 25 Mg Tab FEEDTUBE 12.5 mg Q6HR SEGUNDO Administration Ondansetron HCl 4 mg 04/02/22 23:53 Ondansetron 4 Mg/2 Ml Inj IV Q8H PRN Nausea And Vomiting Polyethylene Glycol 17 gm 04/08/22 10:00 05/13/22 11:24 Polyethylene Glycol 3350 17 Gm Powder PO Not Given QDAY SEGUNDO Quetiapine Fumarate 50 mg 05/13/22 11:00 05/13/22 11:07 Quetiapine 100 Mg Tab FEEDTUBE 50 mg BID SEGUNDO Administration Scopolamine 1 each 05/12/22 09:00 05/12/22 17:37 Scopolamine Transdermal Patch 72 Hr TD Not Given Q3D SEGUNDO Senna 17.6 mg 04/28/22 10:00 05/13/22 11:26 Sennosides Oral Liqd 8.8 Mg/5 Ml Oral Liqd FEEDTUBE Not Given Q12HR SEGUNDO Sodium Chloride 10 ml 04/03/22 10:00 05/13/22 11:09 Sodium Chloride 0.9% 10 Ml Flush Syringe IV 10 ml BID SEGUNDO Administration Sodium Chloride 10 ml 04/02/22 23:53 Sodium Chloride 0.9% 10 Ml Flush Syringe IV PRN PRN LINE FLUSH Nutrition/Malnutrition Assess - Dietary Evaluation Nutrition/Malnutrition Findings: Nutrition Notes Start: 04/04/22 13:13 Freq: Status: Active Protocol: Document 05/11/22 11:49 COLLEEN (Rec: 05/11/22 12:02 COLLEEN [id number]) Nutrition Notes Initial or Follow up Reassessment Current Diagnosis Coronary Artery Disease, Decubitus(Pressure Ulcer), Sepsis,Respiratory Failure, Malnutrition Other Pertinent Diagnosis HCAP, ALS, Broncopneumonia, NSTEMI, Cardiomyopathy, ... Current Diet TF-Vital AF 1.2 Inderjit @ 50 ml/hr (since D 04/15). Labs/Tests 05/09: Cl 92.9, CO2 40, Crea < 0.2, Glu 141. Pertinent Medications 05/11: Nutritionally unremarkable. Height 5 ft 4.8 in Weight 46.8 kg [place] Body Weight (kg) 61.27 BMI 17.2 Weight change and time frame No body weight change reported in 5 weeks. Weight Status Underweight Subjective/Other Information RD consult for routine F/U on TF tolerance/continuation. TF continues as prescribed, and well tolerated, according to RN notes. Pt continues on Mechanical ventilation, O2 saturation @ 93%, according to Physical Assessment Histroy notes. Pt will be discharged home with family; awaiting home- Vent family training to be over on 05/12, according to Progress notes. Percent of energy/protein needs met: Prescribed TF-Vital AF 1.2 Inderjit @ 50 ml/hr provides for energy/protein needs (1,450 Kcal/91 g) during LOS, 98% Kcal; 100% AA. Burn Absent Trauma Absent GI Symptoms Constipation Difficulty In Swallowing,Chewing Food Allergy No Skin Integrity/Comment Sacral open wound. Current % PO Other Minimum of two criteria No #1 Nutrition Diagnosis Inadequate oral intake Diagnosis Progress(for reassessment Continues documentation) Is patient on ventilator? Yes Is Patient Ambulatory and/or Out of Bed No REE-([facility]-confined to bed) [phone] Calculation Used for Recommendations [facility] Additional Notes Protein: 1.2-2 g/Kg IBW; 73- 122 g/day. Fluids: 1 ml/Kcal, or as per MD. Nutrition Intervention Nutrition Support: Continue TF-Vital AF 1.2 Inderjit @ 50 ml/hr. Flush: 80 ml water Q 4 hr, or as per MD. Kcal 1,450 Protein (gm) 91 Carbohydrates (gm) 134 Fat (gm) 65 Fluid (mL) 980 Fiber (gm) 6 % RDI: 98% Kcal; 100% AA. Goal #1 Provide at least 75% of energy /protein needs through Enteral Feeding during LOS. Follow-Up By: 05/18/22 Additional Comments Continue monitoring TF tolerance and BM.
--- NOTE | 2022-05-04 12:46 | Progress Note ---
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 Right lung hemiopacification- Atelectasis s/p Bronchoscopy Oropharyngeal dysphagia s/p PEG Protein calorie malnutrition Acute Bronchopneumonia HCAP Hypotension NSTEMI H/o Amyotrophic Lateral Sclerosis Nonverbal at Baseline Trach care, airway clearance, Continue with medical management of atelectasis- continue with bronchodilators and chest PT CXR,ABG as clinically indicated Discharge planning- family want to take him home Family training to begin -Titrate supplemental oxygen to keep SpO2 89-92% -VAP bundle addressed, aspiration precautions HOB >40 -Lung protective strategies -Daily assessment for readiness to wean. -Monitoring renal function, hemodynamics and electrolyte profile -Accuchecks with glycemic control. target blood glucose 140-180 mg/dL. Avoid hypoglycemia -Continue enteric nutritional support, bowel regimen -VTE prophylaxis- Heparin -Avoid nephrotoxins and renally dose all medications -Stress ulcer prophylaxis- Famotidine -Mobility, frequent turning, off loading per facility protocol to prevent pressure ulcers -Maintain sleep wake cycle, avoid benzodiazepines. -Limit delirium CONDITION:CRITICAL PROGNOSIS: GUARDED CODE STATUS; FULL CODE The high probability of a clinically significant, sudden or life threatening deterioration of the respiratory, cardiovascular, neurology system required my full and direct attention, intervention and personal management. The aggregate critical care time was [33] minutes. 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 Vitals, labs, medications, chart and imaging reviewed. Discussed with respiratory and nursing care staff. s/p trach and PEG. On PEEP 10 and FIO2 45 % No reported fevers, no vomiting, no diarrhea Patient continues to fail PSV trial. No new respiratory issues Objective Vital Signs - 12hr 05/04/22 05/04/22 05/04/22 01:00 02:00 03:00 Temperature Pulse Rate 115 H 110 H 105 H Pulse Rate [ Anterior Bilateral Throughout] Pulse Rate [ Bilateral Throughout] Pulse Rate [ From Monitor] Respiratory 14 14 14 Rate Respiratory Rate [Anterior Bilateral Throughout] Respiratory Rate [Bilateral Throughout] Blood Pressure 105/63 101/62 94/55 O2 Sat by Pulse 97 98 98 Oximetry O2 Sat by Pulse Oximetry [ Assessment] 05/04/22 05/04/22 05/04/22 03:25 03:26 04:00 Temperature 99.6 F Pulse Rate 114 H 111 H Pulse Rate [ Anterior Bilateral Throughout] Pulse Rate [ Bilateral Throughout] Pulse Rate [ 109 H From Monitor] Respiratory 14 Rate Respiratory Rate [Anterior Bilateral Throughout] Respiratory Rate [Bilateral Throughout] Blood Pressure 106/64 O2 Sat by Pulse 97 96 Oximetry O2 Sat by Pulse Oximetry [ Assessment] 05/04/22 05/04/22 05/04/22 05:00 05:38 06:00 Temperature Pulse Rate 110 H 109 H 109 H Pulse Rate [ Anterior Bilateral Throughout] Pulse Rate [ Bilateral Throughout] Pulse Rate [ From Monitor] Respiratory 15 14 Rate Respiratory Rate [Anterior Bilateral Throughout] Respiratory Rate [Bilateral Throughout] Blood Pressure 106/63 101/65 95/64 O2 Sat by Pulse 94 97 Oximetry O2 Sat by Pulse Oximetry [ Assessment] 05/04/22 05/04/22 05/04/22 07:00 07:18 07:48 Temperature 99.2 F Pulse Rate 109 H 109 H Pulse Rate [ Anterior Bilateral Throughout] Pulse Rate [ Bilateral Throughout] Pulse Rate [ From Monitor] Respiratory 15 Rate Respiratory Rate [Anterior Bilateral Throughout] Respiratory Rate [Bilateral Throughout] Blood Pressure 105/69 105/64 O2 Sat by Pulse 100 99 Oximetry O2 Sat by Pulse Oximetry [ Assessment] 05/04/22 05/04/22 05/04/22 07:53 08:00 09:00 Temperature 99.2 F Pulse Rate 106 H 117 H Pulse Rate [ 113 H Anterior Bilateral Throughout] Pulse Rate [ 112 H Bilateral Throughout] Pulse Rate [ 108 H From Monitor] Respiratory 18 26 H Rate Respiratory 16 Rate [Anterior Bilateral Throughout] Respiratory 14 Rate [Bilateral Throughout] Blood Pressure 115/78 132/72 O2 Sat by Pulse 99 93 Oximetry O2 Sat by Pulse 99 Oximetry [ Assessment] 05/04/22 05/04/22 05/04/22 10:00 11:00 12:00 Temperature Pulse Rate 122 H 131 H 130 H Pulse Rate [ Anterior Bilateral Throughout] Pulse Rate [ Bilateral Throughout] Pulse Rate [ 119 H From Monitor] Respiratory 23 17 25 H Rate Respiratory Rate [Anterior Bilateral Throughout] Respiratory Rate [Bilateral Throughout] Blood Pressure 128/80 117/72 108/72 O2 Sat by Pulse 91 90 92 Oximetry O2 Sat by Pulse Oximetry [ Assessment] 05/04/22 05/04/22 12:02 12:03 Temperature 98.5 F Pulse Rate 124 H Pulse Rate [ Anterior Bilateral Throughout] Pulse Rate [ Bilateral Throughout] Pulse Rate [ From Monitor] Respiratory 18 Rate Respiratory Rate [Anterior Bilateral Throughout] Respiratory Rate [Bilateral Throughout] Blood Pressure 108/72 O2 Sat by Pulse Oximetry O2 Sat by Pulse Oximetry [ Assessment] Constitutional: alert, appears uncomfortable, other (resting in bed with mildly increased respiratory effort at rest) Eyes: non-icteric ENT: oropharynx moist, other (+ midline tracheostomy) Neck: supple, no lymphadenopathy, no JVD Effort: mildly labored Ascultation: Bilateral: diminished breath sounds (bases), rhonchi Percussion: Bilateral: not dull Cardiovascular: regular rate and rhythm, other (S1,S2) Gastrointestinal: normoactive bowel sounds, soft, non-tender, non-distended Integumentary: normal Extremities: no cyanosis, no edema, pink and warm, pulses normal Neurologic: pupils equal and round, other (functional quadriplegia, awake and alert, tracks voice) Psychiatric: mood appropriate, affect normal, other CBC and BMP: 05/05/22 04:23 05/05/22 04:23 ABG, PT/INR, D-dimer: ABG ABG pH 7.383 pH Units (7.350-7.450) 05/04/22 09:36 ABG pCO2 75.0 mm Hg 05/04/22 09:36 ABG pO2 55.4 mm Hg (80.0-90.0) L 05/04/22 09:36 ABG O2 Saturation 87.4 % (95.0-99.0) L 05/04/22 09:36 PT/INR, D-dimer PT 13.6 Sec. (12.2-14.9) 04/13/22 04:30 INR 0.94 (0.87-1.13) 04/13/22 04:30 Abnormal lab findings: Abnormal Labs 04/02/22 04/02/22 04/02/22 19:39 19:39 19:39 WBC 14.3 H RBC Hgb Hct MCV 96 H Plt Count 104 L Lymph % (Auto) [place] % (Auto) Lymph # (Auto) [place] # (Auto) Seg Neutrophils % Seg Neuts % (Manual) 94.0 H Lymphocytes % (Manual) 1.0 L Seg Neutrophils # Seg Neutrophils # Man 13.4 H Lymphocytes # (Manual) 0.1 L PT 15.9 H INR 1.14 H ABG pH ABG pO2 ABG HCO3 ABG O2 Saturation ABG Base Excess ABG Hemoglobin Oxyhemoglobin Sodium 151 H Potassium Chloride Carbon Dioxide BUN Creatinine 0.5 L Glucose POC Glucose Calcium 8.2 L Phosphorus Magnesium 1.60 L Total Creatine Kinase CK-MB (CK-2) Rel Index Troponin T 0.048 H C-Reactive Protein Total Protein 4.6 L Albumin 2.7 L LDL Cholesterol Direct 27 L Urine WBC (Auto) 04/02/22 04/03/22 04/03/22 19:42 05:14 06:30 WBC RBC Hgb Hct MCV Plt Count Lymph % (Auto) [place] % (Auto) Lymph # (Auto) [place] # (Auto) Seg Neutrophils % Seg Neuts % (Manual) Lymphocytes % (Manual) Seg Neutrophils # Seg Neutrophils # Man Lymphocytes # (Manual) PT INR ABG pH 7.471 H 7.496 H ABG pO2 47.8 L 91.0 H ABG HCO3 30.6 H ABG O2 Saturation 94.4 L ABG Base Excess 6.2 H ABG Hemoglobin 11.0 L 12.8 L Oxyhemoglobin 93.1 L Sodium 149 H Potassium 3.4 L Chloride Carbon Dioxide BUN Creatinine 0.4 L Glucose POC Glucose Calcium Phosphorus Magnesium Total Creatine Kinase CK-MB (CK-2) Rel Index Troponin T C-Reactive Protein Total Protein Albumin LDL Cholesterol Direct Urine WBC (Auto) 04/04/22 04/04/22 04/04/22 04:18 04:18 05:50 WBC 11.8 H RBC Hgb Hct MCV Plt Count 132 L Lymph % (Auto) [place] % (Auto) Lymph # (Auto) [place] # (Auto) Seg Neutrophils % Seg Neuts % (Manual) Lymphocytes % (Manual) Seg Neutrophils # Seg Neutrophils # Man Lymphocytes # (Manual) PT INR ABG pH 7.517 H ABG pO2 115.5 H ABG HCO3 29.9 H ABG O2 Saturation ABG Base Excess 6.7 H ABG Hemoglobin 12.3 L Oxyhemoglobin Sodium Potassium 3.5 L Chloride Carbon Dioxide 31 H BUN Creatinine 0.3 L Glucose 153 H POC Glucose Calcium Phosphorus 1.40 L Magnesium 1.50 L Total Creatine Kinase CK-MB (CK-2) Rel Index Troponin T C-Reactive Protein 31.60 H Total Protein Albumin LDL Cholesterol Direct Urine WBC (Auto) 04/05/22 04/05/22 04/05/22 02:50 05:25 11:28 WBC RBC Hgb Hct MCV Plt Count Lymph % (Auto) [place] % (Auto) Lymph # (Auto) [place] # (Auto) Seg Neutrophils % Seg Neuts % (Manual) Lymphocytes % (Manual) Seg Neutrophils # Seg Neutrophils # Man Lymphocytes # (Manual) PT INR ABG pH 7.455 H ABG pO2 50.7 L ABG HCO3 30.5 H ABG O2 Saturation 89.4 L ABG Base Excess 5.9 H ABG Hemoglobin 11.8 L Oxyhemoglobin 88.2 L Sodium Potassium Chloride Carbon Dioxide 32 H BUN Creatinine 0.2 L Glucose 110 H POC Glucose 124 H Calcium 7.9 L Phosphorus Magnesium Total Creatine Kinase CK-MB (CK-2) Rel Index Troponin T C-Reactive Protein Total Protein Albumin LDL Cholesterol Direct Urine WBC (Auto) 04/05/22 04/05/22 04/06/22 17:45 Unknown 04:00 WBC RBC 3.55 L Hgb 11.1 L 11.5 L Hct 33.2 L 35.1 L MCV Plt Count 113 L 114 L Lymph % (Auto) [place] % (Auto) Lymph # (Auto) [place] # (Auto) Seg Neutrophils % Seg Neuts % (Manual) Lymphocytes % (Manual) Seg Neutrophils # Seg Neutrophils # Man Lymphocytes # (Manual) PT INR ABG pH ABG pO2 ABG HCO3 ABG O2 Saturation ABG Base Excess ABG Hemoglobin Oxyhemoglobin Sodium Potassium Chloride Carbon Dioxide BUN Creatinine Glucose POC Glucose Calcium Phosphorus Magnesium Total Creatine Kinase CK-MB (CK-2) Rel Index Troponin T C-Reactive Protein Total Protein Albumin LDL Cholesterol Direct Urine WBC (Auto) 8.0 H 04/06/22 04/06/22 04/07/22 04:00 08:30 00:04 WBC RBC Hgb Hct MCV Plt Count Lymph % (Auto) [place] % (Auto) Lymph # (Auto) [place] # (Auto) Seg Neutrophils % Seg Neuts % (Manual) Lymphocytes % (Manual) Seg Neutrophils # Seg Neutrophils # Man Lymphocytes # (Manual) PT INR ABG pH ABG pO2 60.8 L ABG HCO3 30.5 H ABG O2 Saturation 93.3 L ABG Base Excess 4.9 H ABG Hemoglobin 12.4 L Oxyhemoglobin 92.1 L Sodium Potassium 3.0 L Chloride Carbon Dioxide BUN Creatinine < 0.2 L Glucose 130 H POC Glucose 117 H Calcium 8.1 L Phosphorus Magnesium Total Creatine Kinase CK-MB (CK-2) Rel Index Troponin T C-Reactive Protein Total Protein Albumin LDL Cholesterol Direct Urine WBC (Auto) 04/07/22 04/07/22 04/07/22 03:51 03:51 03:51 WBC 14.6 H RBC 3.57 L Hgb 11.1 L Hct 33.2 L MCV Plt Count 118 L Lymph % (Auto) 4.3 L [place] % (Auto) 8.8 H Lymph # (Auto) 0.6 L [place] # (Auto) 1.3 H Seg Neutrophils % 86.6 H Seg Neuts % (Manual) Lymphocytes % (Manual) Seg Neutrophils # 12.7 H Seg Neutrophils # Man Lymphocytes # (Manual) PT 15.2 H INR ABG pH ABG pO2 ABG HCO3 ABG O2 Saturation ABG Base Excess ABG Hemoglobin Oxyhemoglobin Sodium 133 L Potassium Chloride 96.0 L Carbon Dioxide 31 H BUN Creatinine 0.2 L Glucose 130 H POC Glucose Calcium 8.0 L Phosphorus Magnesium Total Creatine Kinase CK-MB (CK-2) Rel Index Troponin T C-Reactive Protein Total Protein Albumin LDL Cholesterol Direct Urine WBC (Auto) 04/07/22 04/07/22 04/08/22 04:25 09:10 04:49 WBC 16.1 H RBC 3.54 L Hgb 10.9 L Hct 33.3 L MCV Plt Count Lymph % (Auto) [place] % (Auto) Lymph # (Auto) [place] # (Auto) Seg Neutrophils % Seg Neuts % (Manual) Lymphocytes % (Manual) Seg Neutrophils # Seg Neutrophils # Man Lymphocytes # (Manual) PT INR ABG pH ABG pO2 71.0 L 63.4 L ABG HCO3 31.5 H 40.0 H ABG O2 Saturation 94.9 L ABG Base Excess 5.9 H 13.6 H ABG Hemoglobin 11.3 L 9.0 L Oxyhemoglobin 93.6 L Sodium Potassium Chloride Carbon Dioxide BUN Creatinine Glucose POC Glucose Calcium Phosphorus Magnesium Total Creatine Kinase CK-MB (CK-2) Rel Index Troponin T C-Reactive Protein Total Protein Albumin LDL Cholesterol Direct Urine WBC (Auto) 04/08/22 04/08/22 04/08/22 04:49 09:53 10:25 WBC RBC Hgb Hct MCV Plt Count Lymph % (Auto) [place] % (Auto) Lymph # (Auto) [place] # (Auto) Seg Neutrophils % Seg Neuts % (Manual) Lymphocytes % (Manual) Seg Neutrophils # Seg Neutrophils # Man Lymphocytes # (Manual) PT INR ABG pH ABG pO2 ABG HCO3 34.7 H ABG O2 Saturation ABG Base Excess 7.9 H ABG Hemoglobin 11.0 L Oxyhemoglobin Sodium 136 L Potassium Chloride 97.7 L Carbon Dioxide 33 H BUN Creatinine 0.2 L Glucose 155 H POC Glucose Calcium Phosphorus Magnesium Total Creatine Kinase CK-MB (CK-2) Rel Index Troponin T 0.030 H C-Reactive Protein Total Protein Albumin LDL Cholesterol Direct Urine WBC (Auto) 04/08/22 04/08/22 04/08/22 11:19 17:47 18:06 WBC RBC Hgb Hct MCV Plt Count Lymph % (Auto) [place] % (Auto) Lymph # (Auto) [place] # (Auto) Seg Neutrophils % Seg Neuts % (Manual) Lymphocytes % (Manual) Seg Neutrophils # Seg Neutrophils # Man Lymphocytes # (Manual) PT INR ABG pH ABG pO2 ABG HCO3 ABG O2 Saturation ABG Base Excess ABG Hemoglobin Oxyhemoglobin Sodium Potassium Chloride Carbon Dioxide BUN Creatinine Glucose POC Glucose 121 H Calcium Phosphorus Magnesium Total Creatine Kinase 31 L 46 L CK-MB (CK-2) Rel Index 6.4 H 5.6 H Troponin T 0.030 H 0.031 H C-Reactive Protein Total Protein Albumin LDL Cholesterol Direct Urine WBC (Auto) 04/09/22 04/09/22 04/09/22 04:35 04:35 11:24 WBC 11.5 H RBC 3.16 L Hgb 9.9 L Hct 29.4 L MCV Plt Count 131 L Lymph % (Auto) [place] % (Auto) Lymph # (Auto) [place] # (Auto) Seg Neutrophils % Seg Neuts % (Manual) Lymphocytes % (Manual) Seg Neutrophils # Seg Neutrophils # Man Lymphocytes # (Manual) PT INR ABG pH ABG pO2 ABG HCO3 ABG O2 Saturation ABG Base Excess ABG Hemoglobin Oxyhemoglobin Sodium Potassium Chloride 97.1 L Carbon Dioxide 35 H BUN Creatinine < 0.2 L Glucose 145 H POC Glucose 147 H Calcium Phosphorus Magnesium Total Creatine Kinase CK-MB (CK-2) Rel Index Troponin T C-Reactive Protein Total Protein Albumin LDL Cholesterol Direct Urine WBC (Auto) 04/09/22 04/09/22 04/09/22 13:00 17:32 23:48 WBC RBC Hgb Hct MCV Plt Count Lymph % (Auto) [place] % (Auto) Lymph # (Auto) [place] # (Auto) Seg Neutrophils % Seg Neuts % (Manual) Lymphocytes % (Manual) Seg Neutrophils # Seg Neutrophils # Man Lymphocytes # (Manual) PT INR ABG pH ABG pO2 66.6 L ABG HCO3 38.2 H ABG O2 Saturation 94.4 L ABG Base Excess 10.7 H ABG Hemoglobin 10.7 L Oxyhemoglobin 92.8 L Sodium Potassium Chloride Carbon Dioxide BUN Creatinine Glucose POC Glucose 143 H 114 H Calcium Phosphorus Magnesium Total Creatine Kinase CK-MB (CK-2) Rel Index Troponin T C-Reactive Protein Total Protein Albumin LDL Cholesterol Direct Urine WBC (Auto) 04/10/22 04/10/22 04/10/22 04:48 04:48 05:34 WBC RBC 2.91 L Hgb 9.1 L Hct 27.7 L MCV 95 H Plt Count Lymph % (Auto) [place] % (Auto) Lymph # (Auto) [place] # (Auto) Seg Neutrophils % Seg Neuts % (Manual) Lymphocytes % (Manual) Seg Neutrophils # Seg Neutrophils # Man Lymphocytes # (Manual) PT INR ABG pH ABG pO2 ABG HCO3 ABG O2 Saturation ABG Base Excess ABG Hemoglobin Oxyhemoglobin Sodium Potassium Chloride 95.7 L Carbon Dioxide 38 H BUN Creatinine < 0.2 L Glucose 118 H POC Glucose 127 H Calcium Phosphorus Magnesium Total Creatine Kinase CK-MB (CK-2) Rel Index Troponin T C-Reactive Protein Total Protein Albumin LDL Cholesterol Direct Urine WBC (Auto) 04/10/22 04/11/22 04/11/22 23:10 04:15 04:15 WBC 17.2 H RBC 2.98 L Hgb 9.2 L Hct 27.9 L MCV Plt Count Lymph % (Auto) [place] % (Auto) Lymph # (Auto) [place] # (Auto) Seg Neutrophils % Seg Neuts % (Manual) Lymphocytes % (Manual) Seg Neutrophils # Seg Neutrophils # Man Lymphocytes # (Manual) PT INR ABG pH ABG pO2 ABG HCO3 ABG O2 Saturation ABG Base Excess ABG Hemoglobin Oxyhemoglobin Sodium Potassium Chloride 96.1 L Carbon Dioxide 35 H BUN Creatinine < 0.2 L Glucose 138 H POC Glucose 106 H Calcium 8.3 L Phosphorus Magnesium Total Creatine Kinase CK-MB (CK-2) Rel Index Troponin T C-Reactive Protein Total Protein Albumin LDL Cholesterol Direct Urine WBC (Auto) 04/11/22 04/11/22 04/11/22 05:31 13:18 16:20 WBC RBC Hgb Hct MCV Plt Count Lymph % (Auto) [place] % (Auto) Lymph # (Auto) [place] # (Auto) Seg Neutrophils % Seg Neuts % (Manual) Lymphocytes % (Manual) Seg Neutrophils # Seg Neutrophils # Man Lymphocytes # (Manual) PT INR ABG pH ABG pO2 57.8 L ABG HCO3 40.5 H ABG O2 Saturation 90.6 L ABG Base Excess 12.6 H ABG Hemoglobin 10.5 L Oxyhemoglobin 89.0 L Sodium Potassium Chloride Carbon Dioxide BUN Creatinine Glucose POC Glucose 129 H 132 H Calcium Phosphorus Magnesium Total Creatine Kinase CK-MB (CK-2) Rel Index Troponin T C-Reactive Protein Total Protein Albumin LDL Cholesterol Direct Urine WBC (Auto) 04/11/22 04/11/22 04/12/22 17:29 23:17 04:00 WBC 17.4 H RBC 2.96 L Hgb 9.0 L Hct 28.0 L MCV 95 H Plt Count Lymph % (Auto) [place] % (Auto) Lymph # (Auto) [place] # (Auto) Seg Neutrophils % Seg Neuts % (Manual) Lymphocytes % (Manual) Seg Neutrophils # Seg Neutrophils # Man Lymphocytes # (Manual) PT INR ABG pH ABG pO2 ABG HCO3 ABG O2 Saturation ABG Base Excess ABG Hemoglobin Oxyhemoglobin Sodium Potassium Chloride Carbon Dioxide BUN Creatinine Glucose POC Glucose 125 H 151 H Calcium Phosphorus Magnesium Total Creatine Kinase CK-MB (CK-2) Rel Index Troponin T C-Reactive Protein Total Protein Albumin LDL Cholesterol Direct Urine WBC (Auto) 04/12/22 04/12/22 04/12/22 04:00 17:03 23:39 WBC RBC Hgb Hct MCV Plt Count Lymph % (Auto) [place] % (Auto) Lymph # (Auto) [place] # (Auto) Seg Neutrophils % Seg Neuts % (Manual) Lymphocytes % (Manual) Seg Neutrophils # Seg Neutrophils # Man Lymphocytes # (Manual) PT INR ABG pH ABG pO2 ABG HCO3 ABG O2 Saturation ABG Base Excess ABG Hemoglobin Oxyhemoglobin Sodium Potassium Chloride 97.4 L Carbon Dioxide 37 H BUN Creatinine < 0.2 L Glucose 127 H POC Glucose 106 H 107 H Calcium Phosphorus Magnesium Total Creatine Kinase CK-MB (CK-2) Rel Index Troponin T C-Reactive Protein Total Protein Albumin LDL Cholesterol Direct Urine WBC (Auto) 04/13/22 04/13/22 04/13/22 04:30 04:30 17:39 WBC 14.1 H RBC 2.66 L Hgb 8.4 L Hct 25.5 L MCV 96 H Plt Count Lymph % (Auto) [place] % (Auto) Lymph # (Auto) [place] # (Auto) Seg Neutrophils % Seg Neuts % (Manual) Lymphocytes % (Manual) Seg Neutrophils # Seg Neutrophils # Man Lymphocytes # (Manual) PT INR ABG pH ABG pO2 ABG HCO3 ABG O2 Saturation ABG Base Excess ABG Hemoglobin Oxyhemoglobin Sodium Potassium Chloride 93.9 L Carbon Dioxide 39 H BUN Creatinine < 0.2 L Glucose POC Glucose 134 H Calcium Phosphorus 1.90 L Magnesium Total Creatine Kinase CK-MB (CK-2) Rel Index Troponin T C-Reactive Protein Total Protein Albumin LDL Cholesterol Direct Urine WBC (Auto) 04/14/22 04/14/22 04/14/22 05:03 05:03 09:10 WBC 15.6 H RBC 3.02 L Hgb 9.3 L Hct 28.8 L MCV 95 H Plt Count Lymph % (Auto) [place] % (Auto) Lymph # (Auto) [place] # (Auto) Seg Neutrophils % Seg Neuts % (Manual) Lymphocytes % (Manual) Seg Neutrophils # Seg Neutrophils # Man Lymphocytes # (Manual) PT INR ABG pH ABG pO2 66.9 L ABG HCO3 44.5 H ABG O2 Saturation ABG Base Excess 17.2 H ABG Hemoglobin 8.1 L Oxyhemoglobin 94.8 L Sodium Potassium Chloride 93.8 L Carbon Dioxide 42 H* BUN Creatinine < 0.2 L Glucose 117 H POC Glucose Calcium Phosphorus Magnesium Total Creatine Kinase CK-MB (CK-2) Rel Index Troponin T C-Reactive Protein Total Protein Albumin LDL Cholesterol Direct Urine WBC (Auto) 04/15/22 04/15/22 04/16/22 04:44 04:44 04:16 WBC 13.0 H 12.6 H RBC 3.19 L 3.09 L Hgb 9.6 L 9.5 L Hct 30.2 L 29.1 L MCV 95 H Plt Count 456 H Lymph % (Auto) [place] % (Auto) Lymph # (Auto) [place] # (Auto) Seg Neutrophils % Seg Neuts % (Manual) Lymphocytes % (Manual) Seg Neutrophils # Seg Neutrophils # Man Lymphocytes # (Manual) PT INR ABG pH ABG pO2 ABG HCO3 ABG O2 Saturation ABG Base Excess ABG Hemoglobin Oxyhemoglobin Sodium Potassium Chloride 95.5 L Carbon Dioxide 37 H BUN Creatinine < 0.2 L Glucose POC Glucose Calcium Phosphorus Magnesium Total Creatine Kinase CK-MB (CK-2) Rel Index Troponin T C-Reactive Protein Total Protein Albumin LDL Cholesterol Direct Urine WBC (Auto) 04/16/22 04/16/22 04/16/22 04:16 05:00 14:00 WBC RBC Hgb Hct MCV Plt Count Lymph % (Auto) [place] % (Auto) Lymph # (Auto) [place] # (Auto) Seg Neutrophils % Seg Neuts % (Manual) Lymphocytes % (Manual) Seg Neutrophils # Seg Neutrophils # Man Lymphocytes # (Manual) PT INR ABG pH 7.324 L ABG pO2 55.6 L ABG HCO3 45.3 H ABG O2 Saturation 87.1 L ABG Base Excess 16.6 H ABG Hemoglobin 8.6 L Oxyhemoglobin 85.7 L Sodium Potassium Chloride 97.6 L Carbon Dioxide 36 H BUN Creatinine < 0.2 L Glucose 109 H POC Glucose 120 H Calcium Phosphorus Magnesium Total Creatine Kinase CK-MB (CK-2) Rel Index Troponin T C-Reactive Protein Total Protein Albumin LDL Cholesterol Direct Urine WBC (Auto) 04/17/22 04/17/22 04/17/22 04:36 04:36 04:57 WBC 14.4 H RBC 3.08 L Hgb 9.4 L Hct 29.0 L MCV Plt Count Lymph % (Auto) [place] % (Auto) Lymph # (Auto) [place] # (Auto) Seg Neutrophils % Seg Neuts % (Manual) Lymphocytes % (Manual) Seg Neutrophils # Seg Neutrophils # Man Lymphocytes # (Manual) PT INR ABG pH ABG pO2 ABG HCO3 ABG O2 Saturation ABG Base Excess ABG Hemoglobin Oxyhemoglobin Sodium Potassium Chloride 95.9 L Carbon Dioxide 39 H BUN Creatinine < 0.2 L Glucose 140 H POC Glucose 137 H Calcium 8.3 L Phosphorus Magnesium Total Creatine Kinase CK-MB (CK-2) Rel Index Troponin T C-Reactive Protein Total Protein Albumin LDL Cholesterol Direct Urine WBC (Auto) 04/17/22 04/17/22 04/18/22 09:15 18:01 04:20 WBC 11.2 H RBC 3.00 L Hgb 9.3 L Hct 28.6 L MCV 95 H Plt Count Lymph % (Auto) [place] % (Auto) Lymph # (Auto) [place] # (Auto) Seg Neutrophils % Seg Neuts % (Manual) Lymphocytes % (Manual) Seg Neutrophils # Seg Neutrophils # Man Lymphocytes # (Manual) PT INR ABG pH 7.345 L ABG pO2 ABG HCO3 48.2 H ABG O2 Saturation ABG Base Excess 19.2 H ABG Hemoglobin 9.7 L Oxyhemoglobin Sodium Potassium Chloride Carbon Dioxide BUN Creatinine Glucose POC Glucose 129 H Calcium Phosphorus Magnesium Total Creatine Kinase CK-MB (CK-2) Rel Index Troponin T C-Reactive Protein Total Protein Albumin LDL Cholesterol Direct Urine WBC (Auto) 04/18/22 04/18/22 04/18/22 04:20 17:35 23:50 WBC RBC Hgb Hct MCV Plt Count Lymph % (Auto) [place] % (Auto) Lymph # (Auto) [place] # (Auto) Seg Neutrophils % Seg Neuts % (Manual) Lymphocytes % (Manual) Seg Neutrophils # Seg Neutrophils # Man Lymphocytes # (Manual) PT INR ABG pH ABG pO2 ABG HCO3 ABG O2 Saturation ABG Base Excess ABG Hemoglobin Oxyhemoglobin Sodium Potassium Chloride 96.8 L Carbon Dioxide 43 H* BUN 22 H Creatinine < 0.2 L Glucose 137 H POC Glucose 128 H 123 H Calcium 8.2 L Phosphorus Magnesium Total Creatine Kinase CK-MB (CK-2) Rel Index Troponin T C-Reactive Protein Total Protein Albumin LDL Cholesterol Direct Urine WBC (Auto) 04/19/22 04/19/22 04/19/22 04:08 04:08 08:50 WBC 16.8 H RBC 3.18 L Hgb 9.8 L Hct 30.1 L MCV 95 H Plt Count Lymph % (Auto) [place] % (Auto) Lymph # (Auto) [place] # (Auto) Seg Neutrophils % Seg Neuts % (Manual) Lymphocytes % (Manual) Seg Neutrophils # Seg Neutrophils # Man Lymphocytes # (Manual) PT INR ABG pH ABG pO2 56.0 L ABG HCO3 47.1 H ABG O2 Saturation 93.3 L ABG Base Excess 20.1 H ABG Hemoglobin 8.0 L Oxyhemoglobin 91.8 L Sodium Potassium Chloride 96.2 L Carbon Dioxide 40 H BUN 24 H Creatinine < 0.2 L Glucose 125 H POC Glucose Calcium 8.3 L Phosphorus Magnesium Total Creatine Kinase CK-MB (CK-2) Rel Index Troponin T C-Reactive Protein Total Protein Albumin LDL Cholesterol Direct Urine WBC (Auto) 04/19/22 04/20/22 04/20/22 12:02 00:40 04:49 WBC 14.7 H RBC 3.36 L Hgb 10.3 L Hct 32.0 L MCV 95 H Plt Count Lymph % (Auto) [place] % (Auto) Lymph # (Auto) [place] # (Auto) Seg Neutrophils % Seg Neuts % (Manual) Lymphocytes % (Manual) Seg Neutrophils # Seg Neutrophils # Man Lymphocytes # (Manual) PT INR ABG pH ABG pO2 ABG HCO3 ABG O2 Saturation ABG Base Excess ABG Hemoglobin Oxyhemoglobin Sodium Potassium Chloride Carbon Dioxide BUN Creatinine Glucose POC Glucose 124 H 140 H Calcium Phosphorus Magnesium Total Creatine Kinase CK-MB (CK-2) Rel Index Troponin T C-Reactive Protein Total Protein Albumin LDL Cholesterol Direct Urine WBC (Auto) 04/20/22 04/20/22 04/21/22 05:36 11:40 04:05 WBC RBC Hgb Hct MCV Plt Count Lymph % (Auto) [place] % (Auto) Lymph # (Auto) [place] # (Auto) Seg Neutrophils % Seg Neuts % (Manual) Lymphocytes % (Manual) Seg Neutrophils # Seg Neutrophils # Man Lymphocytes # (Manual) PT INR ABG pH ABG pO2 ABG HCO3 ABG O2 Saturation ABG Base Excess ABG Hemoglobin Oxyhemoglobin Sodium Potassium Chloride 93.4 L Carbon Dioxide 40 H BUN 25 H Creatinine < 0.2 L Glucose 122 H POC Glucose 125 H 128 H Calcium Phosphorus Magnesium Total Creatine Kinase CK-MB (CK-2) Rel Index Troponin T C-Reactive Protein Total Protein Albumin LDL Cholesterol Direct Urine WBC (Auto) 04/21/22 04/22/22 04/22/22 10:31 05:03 05:03 WBC 12.6 H 12.7 H RBC 2.83 L 2.96 L Hgb 8.6 L 9.0 L Hct 26.9 L 28.0 L MCV 95 H 95 H Plt Count Lymph % (Auto) [place] % (Auto) Lymph # (Auto) [place] # (Auto) Seg Neutrophils % Seg Neuts % (Manual) Lymphocytes % (Manual) Seg Neutrophils # Seg Neutrophils # Man Lymphocytes # (Manual) PT INR ABG pH ABG pO2 ABG HCO3 ABG O2 Saturation ABG Base Excess ABG Hemoglobin Oxyhemoglobin Sodium Potassium Chloride 93.9 L Carbon Dioxide 43 H* BUN 23 H Creatinine < 0.2 L Glucose 137 H POC Glucose Calcium Phosphorus Magnesium Total Creatine Kinase CK-MB (CK-2) Rel Index Troponin T C-Reactive Protein Total Protein Albumin LDL Cholesterol Direct Urine WBC (Auto) 04/22/22 04/23/22 04/24/22 08:34 09:40 04:29 WBC 14.4 H RBC 2.74 L Hgb 8.4 L Hct 25.7 L MCV Plt Count Lymph % (Auto) [place] % (Auto) Lymph # (Auto) [place] # (Auto) Seg Neutrophils % Seg Neuts % (Manual) Lymphocytes % (Manual) Seg Neutrophils # Seg Neutrophils # Man Lymphocytes # (Manual) PT INR ABG pH ABG pO2 54.1 L 56.8 L ABG HCO3 48.5 H 49.0 H ABG O2 Saturation 92.1 L 90.9 L ABG Base Excess 20.9 H 20.8 H ABG Hemoglobin 9.0 L 8.4 L Oxyhemoglobin 90.6 L 89.5 L Sodium Potassium Chloride Carbon Dioxide BUN Creatinine Glucose POC Glucose Calcium Phosphorus Magnesium Total Creatine Kinase CK-MB (CK-2) Rel Index Troponin T C-Reactive Protein Total Protein Albumin LDL Cholesterol Direct Urine WBC (Auto) 04/24/22 04/25/22 04/26/22 04:29 09:00 04:22 WBC RBC 2.88 L Hgb 8.9 L Hct 26.8 L MCV Plt Count Lymph % (Auto) [place] % (Auto) Lymph # (Auto) [place] # (Auto) Seg Neutrophils % Seg Neuts % (Manual) Lymphocytes % (Manual) Seg Neutrophils # Seg Neutrophils # Man Lymphocytes # (Manual) PT INR ABG pH 7.457 H ABG pO2 66.7 L ABG HCO3 42.6 H ABG O2 Saturation ABG Base Excess 15.3 H ABG Hemoglobin 8.8 L Oxyhemoglobin 94.1 L Sodium Potassium Chloride 90.7 L Carbon Dioxide 40 H BUN Creatinine < 0.2 L Glucose 133 H POC Glucose Calcium Phosphorus Magnesium Total Creatine Kinase CK-MB (CK-2) Rel Index Troponin T C-Reactive Protein Total Protein Albumin LDL Cholesterol Direct Urine WBC (Auto) 04/26/22 04/29/22 04/29/22 04:22 04:18 04:18 WBC 13.5 H RBC 2.96 L Hgb 8.9 L Hct 27.7 L MCV Plt Count Lymph % (Auto) [place] % (Auto) Lymph # (Auto) [place] # (Auto) Seg Neutrophils % Seg Neuts % (Manual) Lymphocytes % (Manual) Seg Neutrophils # Seg Neutrophils # Man Lymphocytes # (Manual) PT INR ABG pH ABG pO2 ABG HCO3 ABG O2 Saturation ABG Base Excess ABG Hemoglobin Oxyhemoglobin Sodium Potassium Chloride 93.2 L 95.2 L Carbon Dioxide 37 H 38 H BUN Creatinine < 0.2 L < 0.2 L Glucose 114 H 116 H POC Glucose Calcium Phosphorus Magnesium Total Creatine Kinase CK-MB (CK-2) Rel Index Troponin T C-Reactive Protein Total Protein Albumin LDL Cholesterol Direct Urine WBC (Auto) 05/02/22 05/03/22 05/03/22 04:29 04:02 04:02 WBC 12.9 H 12.3 H RBC 2.82 L 2.83 L Hgb 8.4 L 8.4 L Hct 26.2 L 26.0 L MCV Plt Count Lymph % (Auto) [place] % (Auto) Lymph # (Auto) [place] # (Auto) Seg Neutrophils % Seg Neuts % (Manual) Lymphocytes % (Manual) Seg Neutrophils # Seg Neutrophils # Man Lymphocytes # (Manual) PT INR ABG pH ABG pO2 ABG HCO3 ABG O2 Saturation ABG Base Excess ABG Hemoglobin Oxyhemoglobin Sodium 134 L Potassium Chloride 90.5 L Carbon Dioxide 38 H BUN 21 H Creatinine < 0.2 L Glucose 126 H POC Glucose Calcium Phosphorus Magnesium Total Creatine Kinase CK-MB (CK-2) Rel Index Troponin T C-Reactive Protein Total Protein Albumin LDL Cholesterol Direct Urine WBC (Auto) 05/03/22 05/03/22 05/04/22 12:02 17:42 09:36 WBC RBC Hgb Hct MCV Plt Count Lymph % (Auto) [place] % (Auto) Lymph # (Auto) [place] # (Auto) Seg Neutrophils % Seg Neuts % (Manual) Lymphocytes % (Manual) Seg Neutrophils # Seg Neutrophils # Man Lymphocytes # (Manual) PT INR ABG pH ABG pO2 55.4 L ABG HCO3 43.7 H ABG O2 Saturation 87.4 L ABG Base Excess 16.1 H ABG Hemoglobin 9.1 L Oxyhemoglobin 85.7 L Sodium Potassium Chloride Carbon Dioxide BUN Creatinine Glucose POC Glucose 139 H 131 H Calcium Phosphorus Magnesium Total Creatine Kinase CK-MB (CK-2) Rel Index Troponin T C-Reactive Protein Total Protein Albumin LDL Cholesterol Direct Urine WBC (Auto) Chest x-ray: image reviewed Allied health notes reviewed: RT
[2022-05-04] MEDS: ACETAMINOPHEN 325 MG TAB PO PRN (21:37)
[2022-05-05] MEDS: ALBUTEROL 2.5 MG/3 ML NEBU IH SCH ×3 (00:23→21:15)
[2022-05-05] MEDS: ACETYLCYSTEINE 20% 200 MG/1 ML *FOR INHALATION USE INHALATION SCH ×3 (00:24→21:15)
[2022-05-05 04:47] LABS: Hematocrit 25.2 % (35.5-45.6); Hemoglobin 8.2 gm/dl (11.8-15.2); Mean Corpuscular HGB Conc 32 % (32-34); Mean Corpuscular Volume 92 fl (84-94); Platelet Count 320 K/mm3 (140-440); Red Blood Count 2.75 M/mm3 (3.65-5.03); Red Cell Distribution Width 14.4 % (13.2-15.2)
[2022-05-05] MEDS: METOPROLOL TARTRATE 25 MG TAB FEEDTUBE SCH ×3 (05:06→18:41)
[2022-05-05] MEDS: INSULIN LISPRO 100 UNIT/ML SUB-Q SCH ×3 (05:06→22:24)
[2022-05-05] MEDS: HEPARIN 5,000 UNIT/1 ML VIAL SUB-Q SCH ×3 (05:06→22:25)
[2022-05-05 05:07] LABS: Blood Urea Nitrogen 23 mg/dL (9-20); Calcium 8.8 mg/dL (8.4-10.2); Hemolysis Index 2
[2022-05-05 05:16] LABS: BUN/Creatinine Ratio 115
[2022-05-05] MEDS: DOCUSATE SODIUM 100 MG/10 ML ORAL LIQD FEEDTUBE SCH ×2 (10:30→22:24)
[2022-05-05] MEDS: SENNOSIDES ORAL LIQD 8.8 MG/5 ML ORAL LIQD FEEDTUBE SCH ×2 (10:30→22:24)
[2022-05-05] MEDS: POLYETHYLENE GLYCOL 3350 17 GM POWDER PO SCH (10:30)
[2022-05-05] MEDS: QUEtiapine 25 MG TAB FEEDTUBE SCH ×2 (10:40→22:24)
[2022-05-05] MEDS: FAMOTIDINE 20 MG TAB FEEDTUBE SCH ×2 (10:40→22:25)
--- NOTE | 2022-05-05 10:43 | Progress Note ---
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 Right lung hemiopacification- Atelectasis s/p Bronchoscopy Oropharyngeal dysphagia s/p PEG Protein calorie malnutrition Acute Bronchopneumonia HCAP Hypotension NSTEMI H/o Amyotrophic Lateral Sclerosis Nonverbal at Baseline Trach care, airway clearance, Continue with medical management of atelectasis- continue with bronchodilators and chest PT CXR,ABG as clinically indicated Discharge planning- family want to take him home Family training to begin today at 2pm -Titrate supplemental oxygen to keep SpO2 89-92% -VAP bundle addressed, aspiration precautions HOB >40 -Lung protective strategies -Daily assessment for readiness to wean. -Monitoring renal function, hemodynamics and electrolyte profile -Accuchecks with glycemic control. target blood glucose 140-180 mg/dL. Avoid hypoglycemia -Continue enteric nutritional support, bowel regimen -VTE prophylaxis- Heparin -Avoid nephrotoxins and renally dose all medications -Stress ulcer prophylaxis- Famotidine -Mobility, frequent turning, off loading per facility protocol to prevent pressure ulcers -Maintain sleep wake cycle, avoid benzodiazepines. -Limit delirium CONDITION:CRITICAL PROGNOSIS: GUARDED CODE STATUS; FULL CODE The high probability of a clinically significant, sudden or life threatening deterioration of the respiratory, cardiovascular, neurology system required my full and direct attention, intervention and personal management. The aggregate critical care time was [33] minutes. This time is in addition to time spent performing reported procedures but includes the following: [x] Data Review and interpretation [x] Patient assessment and monitoring of vital signs [x] Documentation [x] Medication orders and management Subjective Date of service: 05/05/22 Principal diagnosis: Ac and ch hypercapnic and hypoxemic Resp Failure; ALS; HCAP; Sepsis; NSTEMI Interval history: Follow up for : Acute and chronic Respiratory Failure with Hypoxia and Hypercapnia 2/2 ALS;Protein calorie malnutrition;Acute Bronchopneumonia; HCAP; Hypotension; NSTEMI; Hypernatremia; Acute Metabolic Encephalopathy; H/o Amyotrophic Lateral Sclerosis Patient seen and examined. Vitals, labs, medications, chart and imaging reviewed. Discussed with respiratory and nursing care staff. s/p trach and PEG. On PEEP 8 and FIO2 45 % No reported fevers, no vomiting, no diarrhea Patient continues to fail PSV trial. No new respiratory issues Family scheduled for teaching session today at 2pm. Awaiting vent setup for home care for ventilation secondary to tracheostomy. Objective Vital Signs - 12hr 05/04/22 05/04/22 05/05/22 23:00 23:23 00:00 Temperature 99.8 F H Pulse Rate 110 H 116 H Pulse Rate [ 110 H Anterior Bilateral Throughout] Pulse Rate [ 108 H Bilateral Throughout] Respiratory 14 14 Rate Respiratory 14 Rate [Anterior Bilateral Throughout] Respiratory 14 Rate [Bilateral Throughout] Blood Pressure 80/52 80/52 94/54 O2 Sat by Pulse 99 100 Oximetry O2 Sat by Pulse Oximetry [ Assessment] 05/05/22 05/05/22 05/05/22 00:40 00:47 01:00 Temperature Pulse Rate 107 H 106 H Pulse Rate [ Anterior Bilateral Throughout] Pulse Rate [ Bilateral Throughout] Respiratory 14 Rate Respiratory Rate [Anterior Bilateral Throughout] Respiratory Rate [Bilateral Throughout] Blood Pressure 89/57 O2 Sat by Pulse 98 Oximetry O2 Sat by Pulse 98 Oximetry [ Assessment] 05/05/22 05/05/22 05/05/22 02:00 03:00 03:41 Temperature Pulse Rate 114 H 111 H Pulse Rate [ Anterior Bilateral Throughout] Pulse Rate [ Bilateral Throughout] Respiratory 14 14 Rate Respiratory Rate [Anterior Bilateral Throughout] Respiratory Rate [Bilateral Throughout] Blood Pressure 100/62 99/63 O2 Sat by Pulse 99 99 97 Oximetry O2 Sat by Pulse Oximetry [ Assessment] 05/05/22 05/05/22 05/05/22 03:53 04:00 04:06 Temperature 99.1 F Pulse Rate 110 H 110 H Pulse Rate [ Anterior Bilateral Throughout] Pulse Rate [ Bilateral Throughout] Respiratory 14 0 L Rate Respiratory Rate [Anterior Bilateral Throughout] Respiratory Rate [Bilateral Throughout] Blood Pressure 102/65 102/65 O2 Sat by Pulse 99 99 Oximetry O2 Sat by Pulse Oximetry [ Assessment] 05/05/22 05/05/22 05/05/22 05:00 05:06 06:00 Temperature Pulse Rate 112 H 117 H Pulse Rate [ Anterior Bilateral Throughout] Pulse Rate [ Bilateral Throughout] Respiratory 15 18 Rate Respiratory Rate [Anterior Bilateral Throughout] Respiratory Rate [Bilateral Throughout] Blood Pressure 101/61 101/61 115/70 O2 Sat by Pulse 99 99 Oximetry O2 Sat by Pulse Oximetry [ Assessment] 05/05/22 05/05/22 05/05/22 07:00 07:19 08:00 Temperature 99.3 F Pulse Rate 110 H 106 H Pulse Rate [ Anterior Bilateral Throughout] Pulse Rate [ Bilateral Throughout] Respiratory 14 14 Rate Respiratory Rate [Anterior Bilateral Throughout] Respiratory Rate [Bilateral Throughout] Blood Pressure 98/65 96/64 O2 Sat by Pulse 100 98 Oximetry O2 Sat by Pulse Oximetry [ Assessment] 05/05/22 05/05/22 08:50 09:00 Temperature Pulse Rate 125 H 125 H Pulse Rate [ Anterior Bilateral Throughout] Pulse Rate [ Bilateral Throughout] Respiratory 15 Rate Respiratory Rate [Anterior Bilateral Throughout] Respiratory Rate [Bilateral Throughout] Blood Pressure 113/73 113/73 O2 Sat by Pulse 94 93 Oximetry O2 Sat by Pulse Oximetry [ Assessment] Constitutional: alert, appears uncomfortable, other (resting in bed with mildly increased respiratory effort at rest) Eyes: non-icteric ENT: oropharynx moist, other (+ midline tracheostomy) Neck: supple, no lymphadenopathy, no JVD Effort: mildly labored Ascultation: Bilateral: diminished breath sounds (bases), rhonchi Percussion: Bilateral: not dull Cardiovascular: regular rate and rhythm, other (S1,S2) Gastrointestinal: normoactive bowel sounds, soft, non-tender, non-distended Integumentary: normal Extremities: no cyanosis, no edema, pink and warm, pulses normal Neurologic: pupils equal and round, other (functional quadriplegia) Psychiatric: mood appropriate, affect normal, other CBC and BMP: 05/05/22 04:23 05/05/22 04:23 ABG, PT/INR, D-dimer: ABG ABG pH 7.383 pH Units (7.350-7.450) 05/04/22 09:36 ABG pCO2 75.0 mm Hg 05/04/22 09:36 ABG pO2 55.4 mm Hg (80.0-90.0) L 05/04/22 09:36 ABG O2 Saturation 87.4 % (95.0-99.0) L 05/04/22 09:36 PT/INR, D-dimer PT 13.6 Sec. (12.2-14.9) 04/13/22 04:30 INR 0.94 (0.87-1.13) 04/13/22 04:30 Abnormal lab findings: Abnormal Labs 04/02/22 04/02/22 04/02/22 19:39 19:39 19:39 WBC 14.3 H RBC Hgb Hct MCV 96 H Plt Count 104 L Lymph % (Auto) [place] % (Auto) Lymph # (Auto) [place] # (Auto) Seg Neutrophils % Seg Neuts % (Manual) 94.0 H Lymphocytes % (Manual) 1.0 L Seg Neutrophils # Seg Neutrophils # Man 13.4 H Lymphocytes # (Manual) 0.1 L PT 15.9 H INR 1.14 H ABG pH ABG pO2 ABG HCO3 ABG O2 Saturation ABG Base Excess ABG Hemoglobin Oxyhemoglobin Sodium 151 H Potassium Chloride Carbon Dioxide BUN Creatinine 0.5 L Glucose POC Glucose Calcium 8.2 L Phosphorus Magnesium 1.60 L Total Creatine Kinase CK-MB (CK-2) Rel Index Troponin T 0.048 H C-Reactive Protein Total Protein 4.6 L Albumin 2.7 L LDL Cholesterol Direct 27 L Urine WBC (Auto) 04/02/22 04/03/22 04/03/22 19:42 05:14 06:30 WBC RBC Hgb Hct MCV Plt Count Lymph % (Auto) [place] % (Auto) Lymph # (Auto) [place] # (Auto) Seg Neutrophils % Seg Neuts % (Manual) Lymphocytes % (Manual) Seg Neutrophils # Seg Neutrophils # Man Lymphocytes # (Manual) PT INR ABG pH 7.471 H 7.496 H ABG pO2 47.8 L 91.0 H ABG HCO3 30.6 H ABG O2 Saturation 94.4 L ABG Base Excess 6.2 H ABG Hemoglobin 11.0 L 12.8 L Oxyhemoglobin 93.1 L Sodium 149 H Potassium 3.4 L Chloride Carbon Dioxide BUN Creatinine 0.4 L Glucose POC Glucose Calcium Phosphorus Magnesium Total Creatine Kinase CK-MB (CK-2) Rel Index Troponin T C-Reactive Protein Total Protein Albumin LDL Cholesterol Direct Urine WBC (Auto) 04/04/22 04/04/22 04/04/22 04:18 04:18 05:50 WBC 11.8 H RBC Hgb Hct MCV Plt Count 132 L Lymph % (Auto) [place] % (Auto) Lymph # (Auto) [place] # (Auto) Seg Neutrophils % Seg Neuts % (Manual) Lymphocytes % (Manual) Seg Neutrophils # Seg Neutrophils # Man Lymphocytes # (Manual) PT INR ABG pH 7.517 H ABG pO2 115.5 H ABG HCO3 29.9 H ABG O2 Saturation ABG Base Excess 6.7 H ABG Hemoglobin 12.3 L Oxyhemoglobin Sodium Potassium 3.5 L Chloride Carbon Dioxide 31 H BUN Creatinine 0.3 L Glucose 153 H POC Glucose Calcium Phosphorus 1.40 L Magnesium 1.50 L Total Creatine Kinase CK-MB (CK-2) Rel Index Troponin T C-Reactive Protein 31.60 H Total Protein Albumin LDL Cholesterol Direct Urine WBC (Auto) 04/05/22 04/05/22 04/05/22 02:50 05:25 11:28 WBC RBC Hgb Hct MCV Plt Count Lymph % (Auto) [place] % (Auto) Lymph # (Auto) [place] # (Auto) Seg Neutrophils % Seg Neuts % (Manual) Lymphocytes % (Manual) Seg Neutrophils # Seg Neutrophils # Man Lymphocytes # (Manual) PT INR ABG pH 7.455 H ABG pO2 50.7 L ABG HCO3 30.5 H ABG O2 Saturation 89.4 L ABG Base Excess 5.9 H ABG Hemoglobin 11.8 L Oxyhemoglobin 88.2 L Sodium Potassium Chloride Carbon Dioxide 32 H BUN Creatinine 0.2 L Glucose 110 H POC Glucose 124 H Calcium 7.9 L Phosphorus Magnesium Total Creatine Kinase CK-MB (CK-2) Rel Index Troponin T C-Reactive Protein Total Protein Albumin LDL Cholesterol Direct Urine WBC (Auto) 04/05/22 04/05/22 04/06/22 17:45 Unknown 04:00 WBC RBC 3.55 L Hgb 11.1 L 11.5 L Hct 33.2 L 35.1 L MCV Plt Count 113 L 114 L Lymph % (Auto) [place] % (Auto) Lymph # (Auto) [place] # (Auto) Seg Neutrophils % Seg Neuts % (Manual) Lymphocytes % (Manual) Seg Neutrophils # Seg Neutrophils # Man Lymphocytes # (Manual) PT INR ABG pH ABG pO2 ABG HCO3 ABG O2 Saturation ABG Base Excess ABG Hemoglobin Oxyhemoglobin Sodium Potassium Chloride Carbon Dioxide BUN Creatinine Glucose POC Glucose Calcium Phosphorus Magnesium Total Creatine Kinase CK-MB (CK-2) Rel Index Troponin T C-Reactive Protein Total Protein Albumin LDL Cholesterol Direct Urine WBC (Auto) 8.0 H 04/06/22 04/06/22 04/07/22 04:00 08:30 00:04 WBC RBC Hgb Hct MCV Plt Count Lymph % (Auto) [place] % (Auto) Lymph # (Auto) [place] # (Auto) Seg Neutrophils % Seg Neuts % (Manual) Lymphocytes % (Manual) Seg Neutrophils # Seg Neutrophils # Man Lymphocytes # (Manual) PT INR ABG pH ABG pO2 60.8 L ABG HCO3 30.5 H ABG O2 Saturation 93.3 L ABG Base Excess 4.9 H ABG Hemoglobin 12.4 L Oxyhemoglobin 92.1 L Sodium Potassium 3.0 L Chloride Carbon Dioxide BUN Creatinine < 0.2 L Glucose 130 H POC Glucose 117 H Calcium 8.1 L Phosphorus Magnesium Total Creatine Kinase CK-MB (CK-2) Rel Index Troponin T C-Reactive Protein Total Protein Albumin LDL Cholesterol Direct Urine WBC (Auto) 04/07/22 04/07/22 04/07/22 03:51 03:51 03:51 WBC 14.6 H RBC 3.57 L Hgb 11.1 L Hct 33.2 L MCV Plt Count 118 L Lymph % (Auto) 4.3 L [place] % (Auto) 8.8 H Lymph # (Auto) 0.6 L [place] # (Auto) 1.3 H Seg Neutrophils % 86.6 H Seg Neuts % (Manual) Lymphocytes % (Manual) Seg Neutrophils # 12.7 H Seg Neutrophils # Man Lymphocytes # (Manual) PT 15.2 H INR ABG pH ABG pO2 ABG HCO3 ABG O2 Saturation ABG Base Excess ABG Hemoglobin Oxyhemoglobin Sodium 133 L Potassium Chloride 96.0 L Carbon Dioxide 31 H BUN Creatinine 0.2 L Glucose 130 H POC Glucose Calcium 8.0 L Phosphorus Magnesium Total Creatine Kinase CK-MB (CK-2) Rel Index Troponin T C-Reactive Protein Total Protein Albumin LDL Cholesterol Direct Urine WBC (Auto) 04/07/22 04/07/22 04/08/22 04:25 09:10 04:49 WBC 16.1 H RBC 3.54 L Hgb 10.9 L Hct 33.3 L MCV Plt Count Lymph % (Auto) [place] % (Auto) Lymph # (Auto) [place] # (Auto) Seg Neutrophils % Seg Neuts % (Manual) Lymphocytes % (Manual) Seg Neutrophils # Seg Neutrophils # Man Lymphocytes # (Manual) PT INR ABG pH ABG pO2 71.0 L 63.4 L ABG HCO3 31.5 H 40.0 H ABG O2 Saturation 94.9 L ABG Base Excess 5.9 H 13.6 H ABG Hemoglobin 11.3 L 9.0 L Oxyhemoglobin 93.6 L Sodium Potassium Chloride Carbon Dioxide BUN Creatinine Glucose POC Glucose Calcium Phosphorus Magnesium Total Creatine Kinase CK-MB (CK-2) Rel Index Troponin T C-Reactive Protein Total Protein Albumin LDL Cholesterol Direct Urine WBC (Auto) 04/08/22 04/08/22 04/08/22 04:49 09:53 10:25 WBC RBC Hgb Hct MCV Plt Count Lymph % (Auto) [place] % (Auto) Lymph # (Auto) [place] # (Auto) Seg Neutrophils % Seg Neuts % (Manual) Lymphocytes % (Manual) Seg Neutrophils # Seg Neutrophils # Man Lymphocytes # (Manual) PT INR ABG pH ABG pO2 ABG HCO3 34.7 H ABG O2 Saturation ABG Base Excess 7.9 H ABG Hemoglobin 11.0 L Oxyhemoglobin Sodium 136 L Potassium Chloride 97.7 L Carbon Dioxide 33 H BUN Creatinine 0.2 L Glucose 155 H POC Glucose Calcium Phosphorus Magnesium Total Creatine Kinase CK-MB (CK-2) Rel Index Troponin T 0.030 H C-Reactive Protein Total Protein Albumin LDL Cholesterol Direct Urine WBC (Auto) 04/08/22 04/08/22 04/08/22 11:19 17:47 18:06 WBC RBC Hgb Hct MCV Plt Count Lymph % (Auto) [place] % (Auto) Lymph # (Auto) [place] # (Auto) Seg Neutrophils % Seg Neuts % (Manual) Lymphocytes % (Manual) Seg Neutrophils # Seg Neutrophils # Man Lymphocytes # (Manual) PT INR ABG pH ABG pO2 ABG HCO3 ABG O2 Saturation ABG Base Excess ABG Hemoglobin Oxyhemoglobin Sodium Potassium Chloride Carbon Dioxide BUN Creatinine Glucose POC Glucose 121 H Calcium Phosphorus Magnesium Total Creatine Kinase 31 L 46 L CK-MB (CK-2) Rel Index 6.4 H 5.6 H Troponin T 0.030 H 0.031 H C-Reactive Protein Total Protein Albumin LDL Cholesterol Direct Urine WBC (Auto) 04/09/22 04/09/22 04/09/22 04:35 04:35 11:24 WBC 11.5 H RBC 3.16 L Hgb 9.9 L Hct 29.4 L MCV Plt Count 131 L Lymph % (Auto) [place] % (Auto) Lymph # (Auto) [place] # (Auto) Seg Neutrophils % Seg Neuts % (Manual) Lymphocytes % (Manual) Seg Neutrophils # Seg Neutrophils # Man Lymphocytes # (Manual) PT INR ABG pH ABG pO2 ABG HCO3 ABG O2 Saturation ABG Base Excess ABG Hemoglobin Oxyhemoglobin Sodium Potassium Chloride 97.1 L Carbon Dioxide 35 H BUN Creatinine < 0.2 L Glucose 145 H POC Glucose 147 H Calcium Phosphorus Magnesium Total Creatine Kinase CK-MB (CK-2) Rel Index Troponin T C-Reactive Protein Total Protein Albumin LDL Cholesterol Direct Urine WBC (Auto) 04/09/22 04/09/22 04/09/22 13:00 17:32 23:48 WBC RBC Hgb Hct MCV Plt Count Lymph % (Auto) [place] % (Auto) Lymph # (Auto) [place] # (Auto) Seg Neutrophils % Seg Neuts % (Manual) Lymphocytes % (Manual) Seg Neutrophils # Seg Neutrophils # Man Lymphocytes # (Manual) PT INR ABG pH ABG pO2 66.6 L ABG HCO3 38.2 H ABG O2 Saturation 94.4 L ABG Base Excess 10.7 H ABG Hemoglobin 10.7 L Oxyhemoglobin 92.8 L Sodium Potassium Chloride Carbon Dioxide BUN Creatinine Glucose POC Glucose 143 H 114 H Calcium Phosphorus Magnesium Total Creatine Kinase CK-MB (CK-2) Rel Index Troponin T C-Reactive Protein Total Protein Albumin LDL Cholesterol Direct Urine WBC (Auto) 04/10/22 04/10/22 04/10/22 04:48 04:48 05:34 WBC RBC 2.91 L Hgb 9.1 L Hct 27.7 L MCV 95 H Plt Count Lymph % (Auto) [place] % (Auto) Lymph # (Auto) [place] # (Auto) Seg Neutrophils % Seg Neuts % (Manual) Lymphocytes % (Manual) Seg Neutrophils # Seg Neutrophils # Man Lymphocytes # (Manual) PT INR ABG pH ABG pO2 ABG HCO3 ABG O2 Saturation ABG Base Excess ABG Hemoglobin Oxyhemoglobin Sodium Potassium Chloride 95.7 L Carbon Dioxide 38 H BUN Creatinine < 0.2 L Glucose 118 H POC Glucose 127 H Calcium Phosphorus Magnesium Total Creatine Kinase CK-MB (CK-2) Rel Index Troponin T C-Reactive Protein Total Protein Albumin LDL Cholesterol Direct Urine WBC (Auto) 04/10/22 04/11/22 04/11/22 23:10 04:15 04:15 WBC 17.2 H RBC 2.98 L Hgb 9.2 L Hct 27.9 L MCV Plt Count Lymph % (Auto) [place] % (Auto) Lymph # (Auto) [place] # (Auto) Seg Neutrophils % Seg Neuts % (Manual) Lymphocytes % (Manual) Seg Neutrophils # Seg Neutrophils # Man Lymphocytes # (Manual) PT INR ABG pH ABG pO2 ABG HCO3 ABG O2 Saturation ABG Base Excess ABG Hemoglobin Oxyhemoglobin Sodium Potassium Chloride 96.1 L Carbon Dioxide 35 H BUN Creatinine < 0.2 L Glucose 138 H POC Glucose 106 H Calcium 8.3 L Phosphorus Magnesium Total Creatine Kinase CK-MB (CK-2) Rel Index Troponin T C-Reactive Protein Total Protein Albumin LDL Cholesterol Direct Urine WBC (Auto) 04/11/22 04/11/22 04/11/22 05:31 13:18 16:20 WBC RBC Hgb Hct MCV Plt Count Lymph % (Auto) [place] % (Auto) Lymph # (Auto) [place] # (Auto) Seg Neutrophils % Seg Neuts % (Manual) Lymphocytes % (Manual) Seg Neutrophils # Seg Neutrophils # Man Lymphocytes # (Manual) PT INR ABG pH ABG pO2 57.8 L ABG HCO3 40.5 H ABG O2 Saturation 90.6 L ABG Base Excess 12.6 H ABG Hemoglobin 10.5 L Oxyhemoglobin 89.0 L Sodium Potassium Chloride Carbon Dioxide BUN Creatinine Glucose POC Glucose 129 H 132 H Calcium Phosphorus Magnesium Total Creatine Kinase CK-MB (CK-2) Rel Index Troponin T C-Reactive Protein Total Protein Albumin LDL Cholesterol Direct Urine WBC (Auto) 04/11/22 04/11/22 04/12/22 17:29 23:17 04:00 WBC 17.4 H RBC 2.96 L Hgb 9.0 L Hct 28.0 L MCV 95 H Plt Count Lymph % (Auto) [place] % (Auto) Lymph # (Auto) [place] # (Auto) Seg Neutrophils % Seg Neuts % (Manual) Lymphocytes % (Manual) Seg Neutrophils # Seg Neutrophils # Man Lymphocytes # (Manual) PT INR ABG pH ABG pO2 ABG HCO3 ABG O2 Saturation ABG Base Excess ABG Hemoglobin Oxyhemoglobin Sodium Potassium Chloride Carbon Dioxide BUN Creatinine Glucose POC Glucose 125 H 151 H Calcium Phosphorus Magnesium Total Creatine Kinase CK-MB (CK-2) Rel Index Troponin T C-Reactive Protein Total Protein Albumin LDL Cholesterol Direct Urine WBC (Auto) 04/12/22 04/12/22 04/12/22 04:00 17:03 23:39 WBC RBC Hgb Hct MCV Plt Count Lymph % (Auto) [place] % (Auto) Lymph # (Auto) [place] # (Auto) Seg Neutrophils % Seg Neuts % (Manual) Lymphocytes % (Manual) Seg Neutrophils # Seg Neutrophils # Man Lymphocytes # (Manual) PT INR ABG pH ABG pO2 ABG HCO3 ABG O2 Saturation ABG Base Excess ABG Hemoglobin Oxyhemoglobin Sodium Potassium Chloride 97.4 L Carbon Dioxide 37 H BUN Creatinine < 0.2 L Glucose 127 H POC Glucose 106 H 107 H Calcium Phosphorus Magnesium Total Creatine Kinase CK-MB (CK-2) Rel Index Troponin T C-Reactive Protein Total Protein Albumin LDL Cholesterol Direct Urine WBC (Auto) 04/13/22 04/13/22 04/13/22 04:30 04:30 17:39 WBC 14.1 H RBC 2.66 L Hgb 8.4 L Hct 25.5 L MCV 96 H Plt Count Lymph % (Auto) [place] % (Auto) Lymph # (Auto) [place] # (Auto) Seg Neutrophils % Seg Neuts % (Manual) Lymphocytes % (Manual) Seg Neutrophils # Seg Neutrophils # Man Lymphocytes # (Manual) PT INR ABG pH ABG pO2 ABG HCO3 ABG O2 Saturation ABG Base Excess ABG Hemoglobin Oxyhemoglobin Sodium Potassium Chloride 93.9 L Carbon Dioxide 39 H BUN Creatinine < 0.2 L Glucose POC Glucose 134 H Calcium Phosphorus 1.90 L Magnesium Total Creatine Kinase CK-MB (CK-2) Rel Index Troponin T C-Reactive Protein Total Protein Albumin LDL Cholesterol Direct Urine WBC (Auto) 04/14/22 04/14/22 04/14/22 05:03 05:03 09:10 WBC 15.6 H RBC 3.02 L Hgb 9.3 L Hct 28.8 L MCV 95 H Plt Count Lymph % (Auto) [place] % (Auto) Lymph # (Auto) [place] # (Auto) Seg Neutrophils % Seg Neuts % (Manual) Lymphocytes % (Manual) Seg Neutrophils # Seg Neutrophils # Man Lymphocytes # (Manual) PT INR ABG pH ABG pO2 66.9 L ABG HCO3 44.5 H ABG O2 Saturation ABG Base Excess 17.2 H ABG Hemoglobin 8.1 L Oxyhemoglobin 94.8 L Sodium Potassium Chloride 93.8 L Carbon Dioxide 42 H* BUN Creatinine < 0.2 L Glucose 117 H POC Glucose Calcium Phosphorus Magnesium Total Creatine Kinase CK-MB (CK-2) Rel Index Troponin T C-Reactive Protein Total Protein Albumin LDL Cholesterol Direct Urine WBC (Auto) 04/15/22 04/15/22 04/16/22 04:44 04:44 04:16 WBC 13.0 H 12.6 H RBC 3.19 L 3.09 L Hgb 9.6 L 9.5 L Hct 30.2 L 29.1 L MCV 95 H Plt Count 456 H Lymph % (Auto) [place] % (Auto) Lymph # (Auto) [place] # (Auto) Seg Neutrophils % Seg Neuts % (Manual) Lymphocytes % (Manual) Seg Neutrophils # Seg Neutrophils # Man Lymphocytes # (Manual) PT INR ABG pH ABG pO2 ABG HCO3 ABG O2 Saturation ABG Base Excess ABG Hemoglobin Oxyhemoglobin Sodium Potassium Chloride 95.5 L Carbon Dioxide 37 H BUN Creatinine < 0.2 L Glucose POC Glucose Calcium Phosphorus Magnesium Total Creatine Kinase CK-MB (CK-2) Rel Index Troponin T C-Reactive Protein Total Protein Albumin LDL Cholesterol Direct Urine WBC (Auto) 04/16/22 04/16/22 04/16/22 04:16 05:00 14:00 WBC RBC Hgb Hct MCV Plt Count Lymph % (Auto) [place] % (Auto) Lymph # (Auto) [place] # (Auto) Seg Neutrophils % Seg Neuts % (Manual) Lymphocytes % (Manual) Seg Neutrophils # Seg Neutrophils # Man Lymphocytes # (Manual) PT INR ABG pH 7.324 L ABG pO2 55.6 L ABG HCO3 45.3 H ABG O2 Saturation 87.1 L ABG Base Excess 16.6 H ABG Hemoglobin 8.6 L Oxyhemoglobin 85.7 L Sodium Potassium Chloride 97.6 L Carbon Dioxide 36 H BUN Creatinine < 0.2 L Glucose 109 H POC Glucose 120 H Calcium Phosphorus Magnesium Total Creatine Kinase CK-MB (CK-2) Rel Index Troponin T C-Reactive Protein Total Protein Albumin LDL Cholesterol Direct Urine WBC (Auto) 04/17/22 04/17/22 04/17/22 04:36 04:36 04:57 WBC 14.4 H RBC 3.08 L Hgb 9.4 L Hct 29.0 L MCV Plt Count Lymph % (Auto) [place] % (Auto) Lymph # (Auto) [place] # (Auto) Seg Neutrophils % Seg Neuts % (Manual) Lymphocytes % (Manual) Seg Neutrophils # Seg Neutrophils # Man Lymphocytes # (Manual) PT INR ABG pH ABG pO2 ABG HCO3 ABG O2 Saturation ABG Base Excess ABG Hemoglobin Oxyhemoglobin Sodium Potassium Chloride 95.9 L Carbon Dioxide 39 H BUN Creatinine < 0.2 L Glucose 140 H POC Glucose 137 H Calcium 8.3 L Phosphorus Magnesium Total Creatine Kinase CK-MB (CK-2) Rel Index Troponin T C-Reactive Protein Total Protein Albumin LDL Cholesterol Direct Urine WBC (Auto) 04/17/22 04/17/22 04/18/22 09:15 18:01 04:20 WBC 11.2 H RBC 3.00 L Hgb 9.3 L Hct 28.6 L MCV 95 H Plt Count Lymph % (Auto) [place] % (Auto) Lymph # (Auto) [place] # (Auto) Seg Neutrophils % Seg Neuts % (Manual) Lymphocytes % (Manual) Seg Neutrophils # Seg Neutrophils # Man Lymphocytes # (Manual) PT INR ABG pH 7.345 L ABG pO2 ABG HCO3 48.2 H ABG O2 Saturation ABG Base Excess 19.2 H ABG Hemoglobin 9.7 L Oxyhemoglobin Sodium Potassium Chloride Carbon Dioxide BUN Creatinine Glucose POC Glucose 129 H Calcium Phosphorus Magnesium Total Creatine Kinase CK-MB (CK-2) Rel Index Troponin T C-Reactive Protein Total Protein Albumin LDL Cholesterol Direct Urine WBC (Auto) 04/18/22 04/18/22 04/18/22 04:20 17:35 23:50 WBC RBC Hgb Hct MCV Plt Count Lymph % (Auto) [place] % (Auto) Lymph # (Auto) [place] # (Auto) Seg Neutrophils % Seg Neuts % (Manual) Lymphocytes % (Manual) Seg Neutrophils # Seg Neutrophils # Man Lymphocytes # (Manual) PT INR ABG pH ABG pO2 ABG HCO3 ABG O2 Saturation ABG Base Excess ABG Hemoglobin Oxyhemoglobin Sodium Potassium Chloride 96.8 L Carbon Dioxide 43 H* BUN 22 H Creatinine < 0.2 L Glucose 137 H POC Glucose 128 H 123 H Calcium 8.2 L Phosphorus Magnesium Total Creatine Kinase CK-MB (CK-2) Rel Index Troponin T C-Reactive Protein Total Protein Albumin LDL Cholesterol Direct Urine WBC (Auto) 04/19/22 04/19/22 04/19/22 04:08 04:08 08:50 WBC 16.8 H RBC 3.18 L Hgb 9.8 L Hct 30.1 L MCV 95 H Plt Count Lymph % (Auto) [place] % (Auto) Lymph # (Auto) [place] # (Auto) Seg Neutrophils % Seg Neuts % (Manual) Lymphocytes % (Manual) Seg Neutrophils # Seg Neutrophils # Man Lymphocytes # (Manual) PT INR ABG pH ABG pO2 56.0 L ABG HCO3 47.1 H ABG O2 Saturation 93.3 L ABG Base Excess 20.1 H ABG Hemoglobin 8.0 L Oxyhemoglobin 91.8 L Sodium Potassium Chloride 96.2 L Carbon Dioxide 40 H BUN 24 H Creatinine < 0.2 L Glucose 125 H POC Glucose Calcium 8.3 L Phosphorus Magnesium Total Creatine Kinase CK-MB (CK-2) Rel Index Troponin T C-Reactive Protein Total Protein Albumin LDL Cholesterol Direct Urine WBC (Auto) 04/19/22 04/20/22 04/20/22 12:02 00:40 04:49 WBC 14.7 H RBC 3.36 L Hgb 10.3 L Hct 32.0 L MCV 95 H Plt Count Lymph % (Auto) [place] % (Auto) Lymph # (Auto) [place] # (Auto) Seg Neutrophils % Seg Neuts % (Manual) Lymphocytes % (Manual) Seg Neutrophils # Seg Neutrophils # Man Lymphocytes # (Manual) PT INR ABG pH ABG pO2 ABG HCO3 ABG O2 Saturation ABG Base Excess ABG Hemoglobin Oxyhemoglobin Sodium Potassium Chloride Carbon Dioxide BUN Creatinine Glucose POC Glucose 124 H 140 H Calcium Phosphorus Magnesium Total Creatine Kinase CK-MB (CK-2) Rel Index Troponin T C-Reactive Protein Total Protein Albumin LDL Cholesterol Direct Urine WBC (Auto) 04/20/22 04/20/22 04/21/22 05:36 11:40 04:05 WBC RBC Hgb Hct MCV Plt Count Lymph % (Auto) [place] % (Auto) Lymph # (Auto) [place] # (Auto) Seg Neutrophils % Seg Neuts % (Manual) Lymphocytes % (Manual) Seg Neutrophils # Seg Neutrophils # Man Lymphocytes # (Manual) PT INR ABG pH ABG pO2 ABG HCO3 ABG O2 Saturation ABG Base Excess ABG Hemoglobin Oxyhemoglobin Sodium Potassium Chloride 93.4 L Carbon Dioxide 40 H BUN 25 H Creatinine < 0.2 L Glucose 122 H POC Glucose 125 H 128 H Calcium Phosphorus Magnesium Total Creatine Kinase CK-MB (CK-2) Rel Index Troponin T C-Reactive Protein Total Protein Albumin LDL Cholesterol Direct Urine WBC (Auto) 04/21/22 04/22/22 04/22/22 10:31 05:03 05:03 WBC 12.6 H 12.7 H RBC 2.83 L 2.96 L Hgb 8.6 L 9.0 L Hct 26.9 L 28.0 L MCV 95 H 95 H Plt Count Lymph % (Auto) [place] % (Auto) Lymph # (Auto) [place] # (Auto) Seg Neutrophils % Seg Neuts % (Manual) Lymphocytes % (Manual) Seg Neutrophils # Seg Neutrophils # Man Lymphocytes # (Manual) PT INR ABG pH ABG pO2 ABG HCO3 ABG O2 Saturation ABG Base Excess ABG Hemoglobin Oxyhemoglobin Sodium Potassium Chloride 93.9 L Carbon Dioxide 43 H* BUN 23 H Creatinine < 0.2 L Glucose 137 H POC Glucose Calcium Phosphorus Magnesium Total Creatine Kinase CK-MB (CK-2) Rel Index Troponin T C-Reactive Protein Total Protein Albumin LDL Cholesterol Direct Urine WBC (Auto) 04/22/22 04/23/22 04/24/22 08:34 09:40 04:29 WBC 14.4 H RBC 2.74 L Hgb 8.4 L Hct 25.7 L MCV Plt Count Lymph % (Auto) [place] % (Auto) Lymph # (Auto) [place] # (Auto) Seg Neutrophils % Seg Neuts % (Manual) Lymphocytes % (Manual) Seg Neutrophils # Seg Neutrophils # Man Lymphocytes # (Manual) PT INR ABG pH ABG pO2 54.1 L 56.8 L ABG HCO3 48.5 H 49.0 H ABG O2 Saturation 92.1 L 90.9 L ABG Base Excess 20.9 H 20.8 H ABG Hemoglobin 9.0 L 8.4 L Oxyhemoglobin 90.6 L 89.5 L Sodium Potassium Chloride Carbon Dioxide BUN Creatinine Glucose POC Glucose Calcium Phosphorus Magnesium Total Creatine Kinase CK-MB (CK-2) Rel Index Troponin T C-Reactive Protein Total Protein Albumin LDL Cholesterol Direct Urine WBC (Auto) 04/24/22 04/25/22 04/26/22 04:29 09:00 04:22 WBC RBC 2.88 L Hgb 8.9 L Hct 26.8 L MCV Plt Count Lymph % (Auto) [place] % (Auto) Lymph # (Auto) [place] # (Auto) Seg Neutrophils % Seg Neuts % (Manual) Lymphocytes % (Manual) Seg Neutrophils # Seg Neutrophils # Man Lymphocytes # (Manual) PT INR ABG pH 7.457 H ABG pO2 66.7 L ABG HCO3 42.6 H ABG O2 Saturation ABG Base Excess 15.3 H ABG Hemoglobin 8.8 L Oxyhemoglobin 94.1 L Sodium Potassium Chloride 90.7 L Carbon Dioxide 40 H BUN Creatinine < 0.2 L Glucose 133 H POC Glucose Calcium Phosphorus Magnesium Total Creatine Kinase CK-MB (CK-2) Rel Index Troponin T C-Reactive Protein Total Protein Albumin LDL Cholesterol Direct Urine WBC (Auto) 04/26/22 04/29/22 04/29/22 04:22 04:18 04:18 WBC 13.5 H RBC 2.96 L Hgb 8.9 L Hct 27.7 L MCV Plt Count Lymph % (Auto) [place] % (Auto) Lymph # (Auto) [place] # (Auto) Seg Neutrophils % Seg Neuts % (Manual) Lymphocytes % (Manual) Seg Neutrophils # Seg Neutrophils # Man Lymphocytes # (Manual) PT INR ABG pH ABG pO2 ABG HCO3 ABG O2 Saturation ABG Base Excess ABG Hemoglobin Oxyhemoglobin Sodium Potassium Chloride 93.2 L 95.2 L Carbon Dioxide 37 H 38 H BUN Creatinine < 0.2 L < 0.2 L Glucose 114 H 116 H POC Glucose Calcium Phosphorus Magnesium Total Creatine Kinase CK-MB (CK-2) Rel Index Troponin T C-Reactive Protein Total Protein Albumin LDL Cholesterol Direct Urine WBC (Auto) 05/02/22 05/03/22 05/03/22 04:29 04:02 04:02 WBC 12.9 H 12.3 H RBC 2.82 L 2.83 L Hgb 8.4 L 8.4 L Hct 26.2 L 26.0 L MCV Plt Count Lymph % (Auto) [place] % (Auto) Lymph # (Auto) [place] # (Auto) Seg Neutrophils % Seg Neuts % (Manual) Lymphocytes % (Manual) Seg Neutrophils # Seg Neutrophils # Man Lymphocytes # (Manual) PT INR ABG pH ABG pO2 ABG HCO3 ABG O2 Saturation ABG Base Excess ABG Hemoglobin Oxyhemoglobin Sodium 134 L Potassium Chloride 90.5 L Carbon Dioxide 38 H BUN 21 H Creatinine < 0.2 L Glucose 126 H POC Glucose Calcium Phosphorus Magnesium Total Creatine Kinase CK-MB (CK-2) Rel Index Troponin T C-Reactive Protein Total Protein Albumin LDL Cholesterol Direct Urine WBC (Auto) 05/03/22 05/03/22 05/04/22 12:02 17:42 09:36 WBC RBC Hgb Hct MCV Plt Count Lymph % (Auto) [place] % (Auto) Lymph # (Auto) [place] # (Auto) Seg Neutrophils % Seg Neuts % (Manual) Lymphocytes % (Manual) Seg Neutrophils # Seg Neutrophils # Man Lymphocytes # (Manual) PT INR ABG pH ABG pO2 55.4 L ABG HCO3 43.7 H ABG O2 Saturation 87.4 L ABG Base Excess 16.1 H ABG Hemoglobin 9.1 L Oxyhemoglobin 85.7 L Sodium Potassium Chloride Carbon Dioxide BUN Creatinine Glucose POC Glucose 139 H 131 H Calcium Phosphorus Magnesium Total Creatine Kinase CK-MB (CK-2) Rel Index Troponin T C-Reactive Protein Total Protein Albumin LDL Cholesterol Direct Urine WBC (Auto) 05/04/22 05/04/22 05/05/22 17:08 23:10 04:23 WBC 14.4 H RBC 2.75 L Hgb 8.2 L Hct 25.2 L MCV Plt Count Lymph % (Auto) [place] % (Auto) Lymph # (Auto) [place] # (Auto) Seg Neutrophils % Seg Neuts % (Manual) Lymphocytes % (Manual) Seg Neutrophils # Seg Neutrophils # Man Lymphocytes # (Manual) PT INR ABG pH ABG pO2 ABG HCO3 ABG O2 Saturation ABG Base Excess ABG Hemoglobin Oxyhemoglobin Sodium Potassium Chloride Carbon Dioxide BUN Creatinine Glucose POC Glucose 124 H 115 H Calcium Phosphorus Magnesium Total Creatine Kinase CK-MB (CK-2) Rel Index Troponin T C-Reactive Protein Total Protein Albumin LDL Cholesterol Direct Urine WBC (Auto) 05/05/22 04:23 WBC RBC Hgb Hct MCV Plt Count Lymph % (Auto) [place] % (Auto) Lymph # (Auto) [place] # (Auto) Seg Neutrophils % Seg Neuts % (Manual) Lymphocytes % (Manual) Seg Neutrophils # Seg Neutrophils # Man Lymphocytes # (Manual) PT INR ABG pH ABG pO2 ABG HCO3 ABG O2 Saturation ABG Base Excess ABG Hemoglobin Oxyhemoglobin Sodium Potassium Chloride 91.3 L Carbon Dioxide 38 H BUN 23 H Creatinine < 0.2 L Glucose 128 H POC Glucose Calcium Phosphorus Magnesium Total Creatine Kinase CK-MB (CK-2) Rel Index Troponin T C-Reactive Protein Total Protein Albumin LDL Cholesterol Direct Urine WBC (Auto) Chest x-ray: image reviewed Allied health notes reviewed: RT
--- NOTE | 2022-05-05 11:07 | Progress Note ---
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, recently hospitalized at [facility] admitted for acute hypoxemic respiratory failure 2/2 pneumonia Neuro: h/o ALS -s/p precedex, fentanyl gtt -Reorientation as needed -Maintain sleep-wake cycle -As needed analgesia -CT head with no acute intracranial process -Per family patient is nonverbal at baseline but responsive -Seroquel Cardiac: Suspect ischemic coronary artery disease, h/o cardiomyopathy -Cardiology consulted, appreciate recommendations -continue conservative management -Blood pressure monitoring per protocol -s/p Vasopressor support with Levophed -Echocardiogram shows ejection fraction of 40 to 45%, mild global hypokinesis of left ventricle -Nitro patch, BB Respiratory: Acute hypoxic respiratory failure -CCM consulted, appreciate recommendations -Intubated on 04/02 with a 7.50 ETT attempt at the lips -s/p trach on 04/14 and s/p bronch on 04/15 -A.m. vent settings: Assist-control/ PRVC TV 400, rate 14, Peep 10, FiO2 45% -See RT notes for titration -CPT and mucomyst -VAP bundle -SPO2 monitoring GI: Moderate protein calorie malnutrition -24 hours -264 mL -PPI -Peg 04/14 -NTR consulted for tube feedings -BR: Senokot/colace, MiraLAX : Metabolic Alkalosis -Record intake and output -Renally dose medications -Avoid nephrotoxic medications -Daily weights -trend BMP ID: Sepsis, Acute Bronchopneumonia, HAP (Pseudomonas and Enterobacter tracheal aspirate), blood culture with bacillus species -Infectious disease consulted, appreciate recommendation-> signed off -Per infectious disease patient was recently admitted to [facility] but discharged home with home hospice and not giving antibiotics -04/15 Tracheal aspirate with Pseudomonas aeruginosa, Enterobacter aerogenes -04/02 blood culture with bacillus species, 04/05 blood culture NGTD -MRSA (-) -s/p cefepime for 14 days -Monitor WBC and temperature curve Endo: NAD -Avoid hypoglycemia -SSI -Accu-Cheks q 6 Heme: Leukocytosis -Heparin subq -Trend CBC -Transfuse hemoglobin less than 7 -SCDs to BLE while in bed Advance Care Planning - Disease education, care plan, diagnoses, and prognosis were discussed patient's , Carly Lopez, and patient daughter, Kaylee Warren, who translated for #[phone]. They reported that patient was following at [facility] for his ALS and during recent hospitalization at [facility] they were told nothing else can be offered to patient at this time and patient was discharge home with home hospice and PO morphine. First hospice visit was on , 04/01 however, patient became unresponsive 04/02 and they brought in to the hospital. - Goal of care and code status were also addressed at that time. Family wants to wait for a couple days to see how patient respond to current treatment before making a decision. All questions and concerns were addressed at this time. Patient family acknowledged understanding and agreement with care plan. -Patient remains a FULL CODE status. -04/05: Discussion at bedside with interpreting service with Dr. Valdivia and family state they would discuss next steps amongst themselves and let healthcare team know of decisions -04/06: extensive discussion with family ( and son) with Dr. Grayson regarding goals of care -04/08: Extensive discussion with with the use of statistical typist line regarding goals of care; no decision made. Possible consult to surgery for trach/PEG early next week. -04/09: Discussion with and her sister with Dr. Grayson and then with Dr. Pineda-> Consulted surgery for trach/peg -04/30 Insurance Denied LTAC, plan for possible SNF placement now. Case management to arrange -Family declined SNF -Awaiting discharge home with ventilator setup for home care due to need for ventilation secondary to trachestomy The high probability of a clinically significant, sudden or life threatening deterioration of the [resp] system(s) required my full and direct attention, intervention and personal management. The aggregate critical care time was [60] minutes. 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 Work-up in the emergency department revealed leukocytosis, elevated troponin and hyponatremia and CXR revealed moderate to large pleural effusion on the right. Patient was having agonal breathing in the emergency department and was intubated. Patient was admitted to the hospitalist service with consults to [facility], cardiology and infectious disease for further work-up. Hospital Course to Date: 04/03: Intubated and Sedated on versed gtt, RASS-5. CT head/brain noted with no acute intracranial abnormality. Plan to initiated precededx gtt and wean off versed for a RASS goal of 0 to -2. CT chect also reviewed, findings are most consistent with acute bronchopneumonia. Continue empiric IV Abx, vent adjustment per [facility]. ID consulted. Continue to F/U on cultures. Titrate pressor for MAP above 65. Medical records requested from [facility]. 04/04: Remains stable on the vent, easily arousable on precedex gtt, not following commands. Plan for SAT/SBT today. PRN analgesia for CPOT greater than 3. Fevers improved, cultures and procal pending. Continue current IV abx, ID also consulted. Remains on low dose pressors, titrate pressors for a MAP above 65. 04/05: Long discussion with family with use of translation phone with [facility] re garding goals of care. Family to have meeting amongst themselves and informed care team of decisions. Fentanyl drip added for respiratory distress. Remains on Precedex drip. Antibiotics per ID. Given 2L NS bolus with levophed gtt 04/06: Family discussion with Dr. Grayson for goals of care. CXR shows possible mucus plug, continue CPT as FiO2 is being able to be weaned. Potassium repleted. Weaning fentnyl gtt. 04/07: Ultrasound guided thoracentesis today scheduled, inadequate amount of pleural effusion on so not completed. Patient was started on Levophed overnight which was weaned off this morning however had to be started twice a day. Remains on fentanyl and Precedex. Cardiology discontinued BB and ACEi in setting of hypotension. 04/08: COVID-19 PCR negative. Routine EEG ordered by cardiology which showed ST changes, cardiology aware. They will continue conservative treatment. Repeat troponins 0.030 which are less than admit of 0.048. Dr. Grayson had a long discussion with with the use of statistical typist today at bedside and has not made a decision regarding goals of care. Possible consult to surgery for trach/PEG early next week. Continues to require Precedex and fentanyl drip for sedation. Carvedilol/lisinopril discontinued as patient is continuously on Levophed. 04/09: No acute events reported overnight, remains on fentanyl, Precedex and Levophed drips. Dr. Grayson and Dr. Pineda updated family at bedside extensively today. Consulted surgery for trach/PEG. COVID-19 PCR negative. 04/10: Patient noted to have desaturation episodes, FiO2 increased slightly to 35%. Will add Mucomyst. Remains on fentanyl and Precedex. Off of Levophed. Surgery consulted for trach/PEG. 04/11: FiO2 increased over night likely related to hypoxia, continues on fent gtt, weaning precedex gtt as he is also on Seroquel. Will d/w CCM re scheduled or prn oxycodone 04/12: Periods of hypoxia and tachycardia this am. Symptoms improved post deep suction and tracheal lavage, Repeat CXR noted with no significant change. Continue CPT and mucomyst. Plan for possible trach/PEG tomorrow by general surgery. 04/13: Remains stable on the vent. Patient is wake and tracking but does not follow simple commands. No report of hypoxia from overnight, continue CPT and mucomyst. Plan for track and PEG today by General Surgery. Plan for LTAC placement post procedure, case management to arrange. 04/14: VIRGILIO overnight, Trach and PEG postponed for today by general surgery. Plan for LTAC placement post procedure, case management to arrange. 04/15: S/p Trach and PEG. Up to 80% FiO2 this am, this am CXR noted suggesting possible mucus plug. D/W [facility] plan for bronch today. Continue CPT and mucomyst. Plan of care thoroughly discussed with patient's and son (who translated for ) at the bedside. Per , seed cone picker had already discussed the risks and benefits of the procedure yesterday. She verbalized understanding and agreed with procedure and current care plan, consent signed. Okay to use PEG-tube for meds this am, resume TF once okay by general Surgery. Case management to arrange LTAC placement. 04/16: s/p Bronchocopy by CCM. FiO2 down to 60%, angela 10 this am. This am CXR w ith moderate improvement. Continue CPT and mucomyst, wean Fio2 as tolerated for SPO2 above 92%. Patient is tolerating TF, advance to goal as ordered. Possible LTAC placement, case management to arrange. 04/17: VIRGILIO overnight. remains stable on the vent, recent CXR and this am ABG noted. Continue CPT and mucomyst, wean Fio2 as tolerated. 04/18: Remains stable on the vent, Fio2 down to 55% and peep of 8 this am. Continue to wean as tolerated, CPT, and mucomyst. Dsiposition- LTAC placement, case management to arrange. 04/19: No acute events overnight. Continue current management. 04/20: No acute events overnight, continue current management 04/21: Patient had chest ultrasound which showed trace pleural effusions, chest x-ray improved after the addition of Mucomyst yesterday. FiO2 55-65%. No acute events overnight. more interactive today. 04/22: Seroquel changed to BID, FiO2 was increased to 60%. RT increased FIO2 to 100 d/t desaturation into the 80s but was able to wean down. CCM increased PEEP and decreased FiO2. 04/23: CCM increase PEEP, no acute events reported overnight. 04/24: Spoke to RT about decreasing FiO2 as tolerated. No acute events reported overnight. Continue supportive management. 04/25: Weaning as tolerated. no acute events overnight. RT to attempt CPAP again today 04/26: VIRGILIO overnight. Patient failed PSV trial again this morning. Continue supportive management and daily PST trial. 04/27: Patient failed PSV trial again this am due to episodes of apnea. Continue daily PSV trial as tolerated. Case management to arrange LTAC placement 04/28: Remains stable. Continue daily PSV trial as tolerated. Awaiting approval for LTAC 04/29: VIRGILIO overnight. Continue daily PSV trial. Awaiting approval for LTAC, case management to arrange. 04/30: Patient continue to fail PSV trial. Per case management patient was denied for LTAC, now possible SNF placement. Case managemen to arrange. Continue supportive measures and daily PSV trial as tolerated. 05/01: VIRGILIO overnight. Continue supportive measures and daily PSV trial as tolerated. Possible SNF placement. 05/02: Continue supportive measures and daily PSV trial as tolerated. Possible SNF placement, case management to arrange 05/03: no acute events overnight, CM arranging home vent setup. Family declined SNF. 05/04: RN/RT reports thin secretions, increase in FiO2 for decreased oxygen on ABG. No acute events overnight. 05/05: Family scheduled for teaching session today at 2pm. Increase in FiO2 overnight to 45%. Awaiting vent setup for home care for ventilation secondary to tracheostomy. Hospitalist Physical - Constitutional Vitals: Temp Pulse Resp BP Pulse Ox 99.3 F 118 H 16 112/70 96 05/05/22 07:19 05/05/22 10:00 05/05/22 10:00 05/05/22 10:00 05/05/22 10:00 General appearance: Present: no acute distress, cachectic, other (trach/) - EENT Eyes: Present: PERRL, EOM intact ENT: dentition normal - Neck Neck: Present: normal ROM - Respiratory Respiratory effort: normal Respiratory: bilateral: diminished - Cardiovascular Rhythm: regular Heart Sounds: Present: S1 & S2. Absent: systolic murmur, diastolic murmur - Extremities Extremities: no ischemia, pulses intact, pulses symmetrical, No edema, normal temperature, normal color Peripheral Pulses: within normal limits - Abdominal General gastrointestinal: soft, non-tender, non-distended, normal bowel sounds - Integumentary Integumentary: Present: warm, dry - Psychiatric Psychiatric: cooperative - Neurologic Neurologic: other (intact cough/gag, PERRL, moves BUE but weak) - Allied Health Allied health notes reviewed: nursing, RT, social work HEART Score - HEART Score Troponin: Troponin T 0.031 ng/mL (0.00-0.029) H 04/08/22 17:47 Results - Labs CBC & Chem 7: 05/05/22 04:23 05/05/22 04:23 Labs: Laboratory Last Values WBC 14.4 K/mm3 (4.5-11.0) H 05/05/22 04:23 RBC 2.75 M/mm3 (3.65-5.03) L 05/05/22 04:23 Hgb 8.2 gm/dl (11.8-15.2) L 05/05/22 04:23 Hct 25.2 % (35.5-45.6) L 05/05/22 04:23 MCV 92 fl (84-94) 05/05/22 04:23 MCH 30 pg (28-32) 05/05/22 04:23 MCHC 32 % (32-34) 05/05/22 04:23 RDW 14.4 % (13.2-15.2) 05/05/22 04:23 Plt Count 320 K/mm3 (140-440) 05/05/22 04:23 Lymph % (Auto) 4.3 % (13.4-35.0) L 04/07/22 03:51 Alfalfa % (Auto) 8.8 % (0.0-7.3) H 04/07/22 03:51 Eos % (Auto) 0.1 % (0.0-4.3) 04/07/22 03:51 Baso % (Auto) 0.2 % (0.0-1.8) 04/07/22 03:51 Lymph # (Auto) 0.6 K/mm3 (1.2-5.4) L 04/07/22 03:51 Alfalfa # (Auto) 1.3 K/mm3 (0.0-0.8) H 04/07/22 03:51 Eos # (Auto) 0.0 K/mm3 (0.0-0.4) 04/07/22 03:51 Baso # (Auto) 0.0 K/mm3 (0.0-0.1) 04/07/22 03:51 Add Manual Diff Complete 04/02/22 19:39 Total Counted 100 04/02/22 19:39 Seg Neutrophils % 86.6 % (40.0-70.0) H 04/07/22 03:51 Seg Neuts % (Manual) 94.0 % (40.0-70.0) H 04/02/22 19:39 Band Neutrophils % 0 % 04/02/22 19:39 Lymphocytes % (Manual) 1.0 % (13.4-35.0) L 04/02/22 19:39 Reactive Lymphs % (Man) 0 % 04/02/22 19:39 Monocytes % (Manual) 5.0 % (0.0-7.3) 04/02/22 19:39 Eosinophils % (Manual) 0 % (0.0-4.3) 04/02/22 19:39 Basophils % (Manual) 0 % (0.0-1.8) 04/02/22 19:39 Metamyelocytes % 0 % 04/02/22 19:39 Myelocytes % 0 % 04/02/22 19:39 Promyelocytes % 0 % 04/02/22 19:39 Blast Cells % 0 % 04/02/22 19:39 Nucleated RBC % Not Reportable 04/02/22 19:39 Seg Neutrophils # 12.7 K/mm3 (1.8-7.7) H 04/07/22 03:51 Seg Neutrophils # Man 13.4 K/mm3 (1.8-7.7) H 04/02/22 19:39 Band Neutrophils # 0.0 K/mm3 04/02/22 19:39 Lymphocytes # (Manual) 0.1 K/mm3 (1.2-5.4) L 04/02/22 19:39 Abs React Lymphs (Man) 0.0 K/mm3 04/02/22 19:39 Monocytes # (Manual) 0.7 K/mm3 (0.0-0.8) 04/02/22 19:39 Eosinophils # (Manual) 0.0 K/mm3 (0.0-0.4) 04/02/22 19:39 Basophils # (Manual) 0.0 K/mm3 (0.0-0.1) 04/02/22 19:39 Metamyelocytes # 0.0 K/mm3 04/02/22 19:39 Myelocytes # 0.0 K/mm3 04/02/22 19:39 Promyelocytes # 0.0 K/mm3 04/02/22 19:39 Blast Cells # 0.0 K/mm3 04/02/22 19:39 WBC Morphology Not Reportable 04/02/22 19:39 Hypersegmented Neuts Not Reportable 04/02/22 19:39 Hyposegmented Neuts Not Reportable 04/02/22 19:39 Hypogranular Neuts Not Reportable 04/02/22 19:39 Smudge Cells Not Reportable 04/02/22 19:39 Toxic Granulation Not Reportable 04/02/22 19:39 Toxic Vacuolation Not Reportable 04/02/22 19:39 Dohle Bodies Not Reportable 04/02/22 19:39 Pelger-Huet Anomaly Not Reportable 04/02/22 19:39 Terry Rods Not Reportable 04/02/22 19:39 Platelet Estimate Consistent w auto 04/02/22 19:39 Clumped Platelets Not Reportable 04/02/22 19:39 Plt Clumps, EDTA Not Reportable 04/02/22 19:39 Large Platelets Not Reportable 04/02/22 19:39 Giant Platelets Not Reportable 04/02/22 19:39 Platelet Satelliting Not Reportable 04/02/22 19:39 Plt Morphology Comment Not Reportable 04/02/22 19:39 RBC Morphology Not Reportable 04/02/22 19:39 Dimorphic RBCs Not Reportable 04/02/22 19:39 Polychromasia Not Reportable 04/02/22 19:39 Hypochromasia Not Reportable 04/02/22 19:39 Poikilocytosis Not Reportable 04/02/22 19:39 Anisocytosis 1+ 04/02/22 19:39 Microcytosis Not Reportable 04/02/22 19:39 Macrocytosis Not Reportable 04/02/22 19:39 Spherocytes Not Reportable 04/02/22 19:39 Pappenheimer Bodies Not Reportable 04/02/22 19:39 Sickle Cells Not Reportable 04/02/22 19:39 Target Cells Not Reportable 04/02/22 19:39 Tear Drop Cells Not Reportable 04/02/22 19:39 Ovalocytes Not Reportable 04/02/22 19:39 Helmet Cells Not Reportable 04/02/22 19:39 Patricio-Liberal Bodies Not Reportable 04/02/22 19:39 [place] Rings Not Reportable 04/02/22 19:39 Clare Cells Not Reportable 04/02/22 19:39 Bite Cells Not Reportable 04/02/22 19:39 Crenated Cell Not Reportable 04/02/22 19:39 Elliptocytes Not Reportable 04/02/22 19:39 Acanthocytes (Spur) Not Reportable 04/02/22 19:39 Rouleaux Not Reportable 04/02/22 19:39 Hemoglobin C Crystals Not Reportable 04/02/22 19:39 Schistocytes Not Reportable 04/02/22 19:39 Malaria parasites Not Reportable 04/02/22 19:39 [place] Bodies Not Reportable 04/02/22 19:39 Hem Pathologist Commnt No 04/02/22 19:39 PT 13.6 Sec. (12.2-14.9) 04/13/22 04:30 INR 0.94 (0.87-1.13) 04/13/22 04:30 APTT 35.7 Sec. (24.2-36.6) 04/07/22 03:51 ABG pH 7.383 pH Units (7.350-7.450) 05/04/22 09:36 ABG pCO2 75.0 mm Hg 05/04/22 09:36 ABG pO2 55.4 mm Hg (80.0-90.0) L 05/04/22 09:36 ABG HCO3 43.7 mmol/L (20.0-26.0) H 05/04/22 09:36 ABG O2 Saturation 87.4 % (95.0-99.0) L 05/04/22 09:36 ABG O2 Content 11.0 (0.0-44) 05/04/22 09:36 ABG Base Excess 16.1 mmol/L (-2.0-3.0) H 05/04/22 09:36 ABG Hemoglobin 9.1 gm/dl (14.0-18.0) L 05/04/22 09:36 ABG Carboxyhemoglobin 1.5 % (0.0-5.0) 05/04/22 09:36 ABG Methemoglobin 0.4 % (0.0-1.5) 05/04/22 09:36 Oxyhemoglobin 85.7 % (95.0-99.0) L 05/04/22 09:36 FiO2 30 % 05/04/22 09:36 Sodium 137 mmol/L (137-145) 05/05/22 04:23 Potassium 4.3 mmol/L (3.6-5.0) 05/05/22 04:23 Chloride 91.3 mmol/L (98-107) L 05/05/22 04:23 Carbon Dioxide 38 mmol/L (22-30) H 05/05/22 04:23 Anion Gap 12 mmol/L 05/05/22 04:23 BUN 23 mg/dL (9-20) H 05/05/22 04:23 Creatinine < 0.2 mg/dL (0.8-1.3) L 05/05/22 04:23 Estimated GFR > 60 ml/min 05/05/22 04:23 BUN/Creatinine Ratio 115 % 05/05/22 04:23 Glucose 128 mg/dL (75-100) H 05/05/22 04:23 POC Glucose 115 mg/dL (70-105) H 05/04/22 23:10 Lactic Acid 1.90 mmol/L (0.7-2.0) 04/02/22 19:39 Calcium 8.8 mg/dL (8.4-10.2) 05/05/22 04:23 Phosphorus 3.40 mg/dL (2.5-4.5) 05/05/22 04:23 Magnesium 1.90 mg/dL (1.7-2.3) 05/05/22 04:23 Total Bilirubin 0.80 mg/dL (0.1-1.2) 04/02/22 19:39 AST 15 units/L (5-40) 04/02/22 19:39 ALT 9 units/L (7-56) 04/02/22 19:39 Alkaline Phosphatase 43 units/L (35-129) 04/02/22 19:39 Total Creatine Kinase 46 units/L (55-170) L 04/08/22 17:47 CK-MB (CK-2) 2.6 ng/mL (0.0-4.0) 04/08/22 17:47 CK-MB (CK-2) Rel Index 5.6 (0-4) H 04/08/22 17:47 Troponin T 0.031 ng/mL (0.00-0.029) H 04/08/22 17:47 C-Reactive Protein 31.60 mg/dL (0.00-1.30) H 04/04/22 04:18 Total Protein 4.6 g/dL (6.3-8.2) L 04/02/22 19:39 Albumin 2.7 g/dL (3.9-5) L 04/02/22 19:39 Albumin/Globulin Ratio 1.4 % 04/02/22 19:39 Triglycerides 80 mg/dL (2-149) 04/02/22 19:39 Cholesterol 94 mg/dL (50-199) 04/02/22 19:39 LDL Cholesterol Direct 27 mg/dL (50-130) L 04/02/22 19:39 HDL Cholesterol 47 mg/dL (40-59) 04/02/22 19:39 Cholesterol/HDL Ratio 2.00 % 04/02/22 19:39 Procalcitonin 0.08 ng/mL (<0.15) 04/04/22 04:18 Urine Color Aracely (Yellow) 04/05/22 17:45 Urine Turbidity Cloudy (Clear) 04/05/22 17:45 Urine pH 5.0 (5.0-7.0) 04/05/22 17:45 Ur Specific [place] 1.021 (1.003-1.030) 04/05/22 17:45 Urine Protein 30 mg/dl mg/dL (Negative) 04/05/22 17:45 Urine Glucose (UA) Neg mg/dL (Negative) 04/05/22 17:45 Urine Ketones Tr mg/dL (Negative) 04/05/22 17:45 Urine Blood Sm (Negative) 04/05/22 17:45 Urine Nitrite Neg (Negative) 04/05/22 17:45 Urine Bilirubin Neg (Negative) 04/05/22 17:45 Urine Urobilinogen < 2.0 mg/dL (<2.0) 04/05/22 17:45 Ur Leukocyte Esterase Tr (Negative) 04/05/22 17:45 Urine WBC (Auto) 8.0 /HPF (0.0-6.0) H 04/05/22 17:45 Urine RBC (Auto) 3.0 /HPF (0.0-6.0) 04/05/22 17:45 U Epithel Cells (Auto) 2.0 /HPF (0-13.0) 04/05/22 17:45 Urine Bacteria (Auto) 1+ /HPF (Negative) 04/02/22 Unknown Hyaline Casts 1 /LPF 04/05/22 17:45 Urine Mucus 3+ /HPF 04/05/22 17:45 Nasal Screen MRSA (PCR) Negative (Negative) 04/05/22 12:37 Vancomycin Trough 6.0 ug/mL (5.0-20.0) 04/05/22 18:53 Coronavirus (PCR) Negative (Negative) 04/07/22 14:52 Perez/IV: Voiding Method Condom Catheter Active Medications - Current Medications Current Medications: Generic Name Dose Route Start Last Admin Trade Name Freq PRN Reason Stop Dose Admin Acetaminophen 650 mg 04/02/22 23:53 05/04/22 21:37 Acetaminophen 325 Mg Tab PO 650 mg Q6H PRN Administration Pain MILD(1-3)/Fever >100.5/FAITH Acetylcysteine 200 mg 05/04/22 20:00 05/05/22 00:24 Acetylcysteine 20% 200 Mg/1 Ml *For Inhalation Use* INHALATION Not Given Q12HRT ON LICENSE OF [facility] Albuterol 2.5 mg 05/05/22 20:00 Albuterol 2.5 Mg/3 Ml Nebu IH Q12HRT SEGUNDO Bisacodyl 10 mg 04/07/22 09:44 04/12/22 10:06 Bisacodyl 10 Mg Rect Supp GA 10 mg QDAY PRN Administration Constipation Dextrose 50 ml 04/06/22 17:54 Dextrose 50% In Water (25gm) 50 Ml Syringe IV Q30MIN PRN Hypoglycemia Protocol Docusate Sodium 100 mg 04/28/22 10:00 05/05/22 10:30 Docusate Sodium 100 Mg/10 Ml Oral Liqd FEEDTUBE Not Given BID SEGUNDO Famotidine 20 mg 04/06/22 10:00 05/05/22 10:40 Famotidine 20 Mg Tab FEEDTUBE 20 mg BID SEGUNDO Administration Fentanyl 50 mcg 04/04/22 15:56 05/04/22 12:03 Fentanyl 100 Mcg/2 Ml Inj IV 50 mcg Q2HR PRN Administration For CPOT of greater than 3 Heparin Sodium (Porcine) 5,000 unit 04/03/22 06:00 05/05/22 05:06 Heparin 5,000 Unit/1 Ml Vial SUB-Q 5,000 unit Q8HR SEGUNDO Administration Insulin Human Lispro 0 unit 05/05/22 06:00 05/05/22 05:06 Insulin Lispro 100 Unit/Ml SUB-Q Not Given Q8HR ON LICENSE OF [facility] Protocol Magnesium Hydroxide 30 ml 04/02/22 23:53 Magnesium Hydroxide (Mom) Oral Liqd Udc PO Q4H PRN Constipation Metoprolol Tartrate 12.5 mg 05/03/22 13:00 05/05/22 05:06 Metoprolol Tartrate 25 Mg Tab FEEDTUBE Not Given Q6HR ON LICENSE OF [facility] Ondansetron HCl 4 mg 04/02/22 23:53 Ondansetron 4 Mg/2 Ml Inj IV Q8H PRN Nausea And Vomiting Polyethylene Glycol 17 gm 04/08/22 10:00 05/05/22 10:30 Polyethylene Glycol 3350 17 Gm Powder PO Not Given QDAY SEGUNDO Quetiapine Fumarate 50 mg 04/28/22 10:00 05/05/22 10:40 Quetiapine 25 Mg Tab FEEDTUBE 50 mg BID SEGUNDO Administration Senna 17.6 mg 04/28/22 10:00 05/05/22 10:30 Sennosides Oral Liqd 8.8 Mg/5 Ml Oral Liqd FEEDTUBE Not Given Q12HR SEGUNDO Sodium Chloride 10 ml 04/03/22 10:00 05/05/22 10:40 Sodium Chloride 0.9% 10 Ml Flush Syringe IV 10 ml BID SEGUNDO Administration Sodium Chloride 10 ml 04/02/22 23:53 Sodium Chloride 0.9% 10 Ml Flush Syringe IV PRN PRN LINE FLUSH Nutrition/Malnutrition Assess - Dietary Evaluation Nutrition/Malnutrition Findings: Nutrition Notes Start: 04/04/22 13:13 Freq: Status: Active Protocol: Document 05/04/22 12:27 COLLEEN (Rec: 05/04/22 12:46 COLLEEN [id number]) Nutrition Notes Initial or Follow up Reassessment Current Diagnosis Coronary Artery Disease, Decubitus(Pressure Ulcer), Sepsis,Respiratory Failure, Malnutrition Other Pertinent Diagnosis HCAP, ALS, Broncopneumonia, NSTEMI, Cardiomyopathy, ... Current Diet TF-Vital AF 1.2 Inderjit @ 50 ml/hr (since D 04/15). Labs/Tests 05/03: Na 134, Cl 90.5, CO2 38 , BUN 21, Crea <0.2, Glu 126. Pertinent Medications 05/04: Nutritionally unremarkable. Height 5 ft 4.8 in Weight 46.8 kg [place] Body Weight (kg) 61.27 BMI 17.2 Weight change and time frame No body weight change reported in 4 weeks. Weight Status Underweight Subjective/Other Information RD consult for routine F/U on TF tolerance/continuation. TF continues as prescribed, and well tolerated, according to RN notes. Pt continues on Mechanical ventilation, O2 saturation @ 96%, according to Physical Assessment Histroy notes. Pt will be discharged home with family; awaiting home- Vent setup; family declined SNF placement, according to Progress notes. Percent of energy/protein needs met: Prescribed TF-Vital AF 1.2 Inderjit @ 50 ml/hr provides for energy/protein needs (1,450 Kcal/91 g) during LOS, 98% Kcal; 100% AA. Burn Absent Trauma Absent GI Symptoms Constipation Difficulty In Swallowing,Chewing Food Allergy No Skin Integrity/Comment Sacral open wound. Current % PO Other Minimum of two criteria No #1 Nutrition Diagnosis Inadequate oral intake Diagnosis Progress(for reassessment Continues documentation) Is patient on ventilator? Yes Is Patient Ambulatory and/or Out of Bed No REE-([facility]-confined to bed) [phone] Calculation Used for Recommendations [facility] Additional Notes Protein: 1.2-2 g/Kg IBW; 73- 122 g/day. Fluids: 1 ml/Kcal, or as per MD. Nutrition Intervention Nutrition Support: Continue TF-Vital AF 1.2 Inderjit @ 50 ml/hr. Flush: 80 ml water Q 4 hr, or as per MD. Kcal 1,450 Protein (gm) 91 Carbohydrates (gm) 134 Fat (gm) 65 Fluid (mL) 980 Fiber (gm) 6 % RDI: 98% Kcal; 100% AA. Goal #1 Provide at least 75% of energy /protein needs through Enteral Feeding during LOS. Follow-Up By: 05/11/22 Additional Comments Continue monitoring TF tolerance and BM. <NORM GRAYSON - Last Filed: 05/13/22 12:18> Assessment and Plan Assessment and plan: I saw and evaluated the patient. Discussed with the nurse practitioner and agree with their findings and plan as documented in this note. Hospitalist Physical - Constitutional Vitals: Temp Pulse Resp BP Pulse Ox 98.4 F 108 H 14 115/75 92 05/13/22 08:00 05/13/22 11:08 05/13/22 11:00 05/13/22 11:08 05/13/22 11:00 HEART Score - HEART Score Troponin: Troponin T 0.031 ng/mL (0.00-0.029) H 04/08/22 17:47 Results - Labs CBC & Chem 7: 05/13/22 04:02 05/13/22 04:02 Labs: Laboratory Last Values WBC 13.3 K/mm3 (4.5-11.0) H 05/13/22 04:02 RBC 3.14 M/mm3 (3.65-5.03) L 05/13/22 04:02 Hgb 8.7 gm/dl (11.8-15.2) L 05/13/22 04:02 Hct 28.0 % (35.5-45.6) L 05/13/22 04:02 MCV 89 fl (84-94) 05/13/22 04:02 MCH 28 pg (28-32) 05/13/22 04:02 MCHC 31 % (32-34) L 05/13/22 04:02 RDW 15.2 % (13.2-15.2) 05/13/22 04:02 Plt Count 418 K/mm3 (140-440) 05/13/22 04:02 Lymph % (Auto) 8.1 % (13.4-35.0) L 05/09/22 15:15 Alfalfa % (Auto) 4.9 % (0.0-7.3) 05/09/22 15:15 Eos % (Auto) 0.6 % (0.0-4.3) 05/09/22 15:15 Baso % (Auto) 0.3 % (0.0-1.8) 05/09/22 15:15 Lymph # (Auto) 0.9 K/mm3 (1.2-5.4) L 05/09/22 15:15 Alfalfa # (Auto) 0.5 K/mm3 (0.0-0.8) 05/09/22 15:15 Eos # (Auto) 0.1 K/mm3 (0.0-0.4) 05/09/22 15:15 Baso # (Auto) 0.0 K/mm3 (0.0-0.1) 05/09/22 15:15 Add Manual Diff Complete 04/02/22 19:39 Total Counted 100 04/02/22 19:39 Seg Neutrophils % 86.1 % (40.0-70.0) H 05/09/22 15:15 Seg Neuts % (Manual) 94.0 % (40.0-70.0) H 04/02/22 19:39 Band Neutrophils % 0 % 04/02/22 19:39 Lymphocytes % (Manual) 1.0 % (13.4-35.0) L 04/02/22 19:39 Reactive Lymphs % (Man) 0 % 04/02/22 19:39 Monocytes % (Manual) 5.0 % (0.0-7.3) 04/02/22 19:39 Eosinophils % (Manual) 0 % (0.0-4.3) 04/02/22 19:39 Basophils % (Manual) 0 % (0.0-1.8) 04/02/22 19:39 Metamyelocytes % 0 % 04/02/22 19:39 Myelocytes % 0 % 04/02/22 19:39 Promyelocytes % 0 % 04/02/22 19:39 Blast Cells % 0 % 04/02/22 19:39 Nucleated RBC % Not Reportable 04/02/22 19:39 Seg Neutrophils # 9.2 K/mm3 (1.8-7.7) H 05/09/22 15:15 Seg Neutrophils # Man 13.4 K/mm3 (1.8-7.7) H 04/02/22 19:39 Band Neutrophils # 0.0 K/mm3 04/02/22 19:39 Lymphocytes # (Manual) 0.1 K/mm3 (1.2-5.4) L 04/02/22 19:39 Abs React Lymphs (Man) 0.0 K/mm3 04/02/22 19:39 Monocytes # (Manual) 0.7 K/mm3 (0.0-0.8) 04/02/22 19:39 Eosinophils # (Manual) 0.0 K/mm3 (0.0-0.4) 04/02/22 19:39 Basophils # (Manual) 0.0 K/mm3 (0.0-0.1) 04/02/22 19:39 Metamyelocytes # 0.0 K/mm3 04/02/22 19:39 Myelocytes # 0.0 K/mm3 04/02/22 19:39 Promyelocytes # 0.0 K/mm3 04/02/22 19:39 Blast Cells # 0.0 K/mm3 04/02/22 19:39 WBC Morphology Not Reportable 04/02/22 19:39 Hypersegmented Neuts Not Reportable 04/02/22 19:39 Hyposegmented Neuts Not Reportable 04/02/22 19:39 Hypogranular Neuts Not Reportable 04/02/22 19:39 Smudge Cells Not Reportable 04/02/22 19:39 Toxic Granulation Not Reportable 04/02/22 19:39 Toxic Vacuolation Not Reportable 04/02/22 19:39 Dohle Bodies Not Reportable 04/02/22 19:39 Pelger-Huet Anomaly Not Reportable 04/02/22 19:39 Terry Rods Not Reportable 04/02/22 19:39 Platelet Estimate Consistent w auto 04/02/22 19:39 Clumped Platelets Not Reportable 04/02/22 19:39 Plt Clumps, EDTA Not Reportable 04/02/22 19:39 Large Platelets Not Reportable 04/02/22 19:39 Giant Platelets Not Reportable 04/02/22 19:39 Platelet Satelliting Not Reportable 04/02/22 19:39 Plt Morphology Comment Not Reportable 04/02/22 19:39 RBC Morphology Not Reportable 04/02/22 19:39 Dimorphic RBCs Not Reportable 04/02/22 19:39 Polychromasia Not Reportable 04/02/22 19:39 Hypochromasia Not Reportable 04/02/22 19:39 Poikilocytosis Not Reportable 04/02/22 19:39 Anisocytosis 1+ 04/02/22 19:39 Microcytosis Not Reportable 04/02/22 19:39 Macrocytosis Not Reportable 04/02/22 19:39 Spherocytes Not Reportable 04/02/22 19:39 Pappenheimer Bodies Not Reportable 04/02/22 19:39 Sickle Cells Not Reportable 04/02/22 19:39 Target Cells Not Reportable 04/02/22 19:39 Tear Drop Cells Not Reportable 04/02/22 19:39 Ovalocytes Not Reportable 04/02/22 19:39 Helmet Cells Not Reportable 04/02/22 19:39 Patricio-Liberal Bodies Not Reportable 04/02/22 19:39 [place] Rings Not Reportable 04/02/22 19:39 Clare Cells Not Reportable 04/02/22 19:39 Bite Cells Not Reportable 04/02/22 19:39 Crenated Cell Not Reportable 04/02/22 19:39 Elliptocytes Not Reportable 04/02/22 19:39 Acanthocytes (Spur) Not Reportable 04/02/22 19:39 Rouleaux Not Reportable 04/02/22 19:39 Hemoglobin C Crystals Not Reportable 04/02/22 19:39 Schistocytes Not Reportable 04/02/22 19:39 Malaria parasites Not Reportable 04/02/22 19:39 [place] Bodies Not Reportable 04/02/22 19:39 Hem Pathologist Commnt No 04/02/22 19:39 PT 13.6 Sec. (12.2-14.9) 04/13/22 04:30 INR 0.94 (0.87-1.13) 04/13/22 04:30 APTT 35.7 Sec. (24.2-36.6) 04/07/22 03:51 ABG pH 7.383 pH Units (7.350-7.450) 05/04/22 09:36 ABG pCO2 75.0 mm Hg 05/04/22 09:36 ABG pO2 55.4 mm Hg (80.0-90.0) L 05/04/22 09:36 ABG HCO3 43.7 mmol/L (20.0-26.0) H 05/04/22 09:36 ABG O2 Saturation 87.4 % (95.0-99.0) L 05/04/22 09:36 ABG O2 Content 11.0 (0.0-44) 05/04/22 09:36 ABG Base Excess 16.1 mmol/L (-2.0-3.0) H 05/04/22 09:36 ABG Hemoglobin 9.1 gm/dl (14.0-18.0) L 05/04/22 09:36 ABG Carboxyhemoglobin 1.5 % (0.0-5.0) 05/04/22 09:36 ABG Methemoglobin 0.4 % (0.0-1.5) 05/04/22 09:36 Oxyhemoglobin 85.7 % (95.0-99.0) L 05/04/22 09:36 FiO2 30 % 05/04/22 09:36 Sodium 135 mmol/L (137-145) L 05/13/22 04:02 Potassium 4.2 mmol/L (3.6-5.0) 05/13/22 04:02 Chloride 91.1 mmol/L (98-107) L 05/13/22 04:02 Carbon Dioxide 40 mmol/L (22-30) H 05/13/22 04:02 Anion Gap 8 mmol/L 05/13/22 04:02 BUN 23 mg/dL (9-20) H 05/13/22 04:02 Creatinine < 0.2 mg/dL (0.8-1.3) L 05/13/22 04:02 Estimated GFR > 60 ml/min 05/13/22 04:02 BUN/Creatinine Ratio 115 % 05/13/22 04:02 Glucose 139 mg/dL (75-100) H 05/13/22 04:02 POC Glucose 129 mg/dL (70-105) H 05/13/22 06:32 Lactic Acid 1.90 mmol/L (0.7-2.0) 04/02/22 19:39 Calcium 8.6 mg/dL (8.4-10.2) 05/13/22 04:02 Phosphorus 3.40 mg/dL (2.5-4.5) 05/05/22 04:23 Magnesium 1.90 mg/dL (1.7-2.3) 05/05/22 04:23 Total Bilirubin 0.80 mg/dL (0.1-1.2) 04/02/22 19:39 AST 15 units/L (5-40) 04/02/22 19:39 ALT 9 units/L (7-56) 04/02/22 19:39 Alkaline Phosphatase 43 units/L (35-129) 04/02/22 19:39 Total Creatine Kinase 46 units/L (55-170) L 04/08/22 17:47 CK-MB (CK-2) 2.6 ng/mL (0.0-4.0) 04/08/22 17:47 CK-MB (CK-2) Rel Index 5.6 (0-4) H 04/08/22 17:47 Troponin T 0.031 ng/mL (0.00-0.029) H 04/08/22 17:47 C-Reactive Protein 31.60 mg/dL (0.00-1.30) H 04/04/22 04:18 Total Protein 4.6 g/dL (6.3-8.2) L 04/02/22 19:39 Albumin 2.7 g/dL (3.9-5) L 04/02/22 19:39 Albumin/Globulin Ratio 1.4 % 04/02/22 19:39 Triglycerides 80 mg/dL (2-149) 04/02/22 19:39 Cholesterol 94 mg/dL (50-199) 04/02/22 19:39 LDL Cholesterol Direct 27 mg/dL (50-130) L 04/02/22 19:39 HDL Cholesterol 47 mg/dL (40-59) 04/02/22 19:39 Cholesterol/HDL Ratio 2.00 % 04/02/22 19:39 Procalcitonin 0.08 ng/mL (<0.15) 04/04/22 04:18 Urine Color Aracely (Yellow) 04/05/22 17:45 Urine Turbidity Cloudy (Clear) 04/05/22 17:45 Urine pH 5.0 (5.0-7.0) 04/05/22 17:45 Ur Specific [place] 1.021 (1.003-1.030) 04/05/22 17:45 Urine Protein 30 mg/dl mg/dL (Negative) 04/05/22 17:45 Urine Glucose (UA) Neg mg/dL (Negative) 04/05/22 17:45 Urine Ketones Tr mg/dL (Negative) 04/05/22 17:45 Urine Blood Sm (Negative) 04/05/22 17:45 Urine Nitrite Neg (Negative) 04/05/22 17:45 Urine Bilirubin Neg (Negative) 04/05/22 17:45 Urine Urobilinogen < 2.0 mg/dL (<2.0) 04/05/22 17:45 Ur Leukocyte Esterase Tr (Negative) 04/05/22 17:45 Urine WBC (Auto) 8.0 /HPF (0.0-6.0) H 04/05/22 17:45 Urine RBC (Auto) 3.0 /HPF (0.0-6.0) 04/05/22 17:45 U Epithel Cells (Auto) 2.0 /HPF (0-13.0) 04/05/22 17:45 Urine Bacteria (Auto) 1+ /HPF (Negative) 04/02/22 Unknown Hyaline Casts 1 /LPF 04/05/22 17:45 Urine Mucus 3+ /HPF 04/05/22 17:45 Nasal Screen MRSA (PCR) Negative (Negative) 04/05/22 12:37 Vancomycin Trough 6.0 ug/mL (5.0-20.0) 04/05/22 18:53 Coronavirus (PCR) Negative (Negative) 04/07/22 14:52 Perez/IV: Voiding Method Condom Catheter Active Medications - Current Medications Current Medications: Generic Name Dose Route Start Last Admin Trade Name Freq PRN Reason Stop Dose Admin Acetaminophen 650 mg 04/02/22 23:53 05/04/22 21:37 Acetaminophen 325 Mg Tab PO 650 mg Q6H PRN Administration Pain MILD(1-3)/Fever >100.5/FAITH Acetylcysteine 200 mg 05/04/22 20:00 05/13/22 08:44 Acetylcysteine 20% 200 Mg/1 Ml *For Inhalation Use* INHALATION 200 mg Q12HRT SEGUNDO Administration Albuterol 2.5 mg 05/05/22 20:00 05/13/22 08:43 Albuterol 2.5 Mg/3 Ml Nebu IH 2.5 mg Q12HRT SEGUNDO Administration Bisacodyl 10 mg 04/07/22 09:44 04/12/22 10:06 Bisacodyl 10 Mg Rect Supp GA 10 mg QDAY PRN Administration Constipation Docusate Sodium 100 mg 04/28/22 10:00 05/13/22 11:24 Docusate Sodium 100 Mg/10 Ml Oral Liqd FEEDTUBE Not Given BID SEGUNDO Famotidine 20 mg 04/06/22 10:00 05/13/22 11:09 Famotidine 20 Mg Tab FEEDTUBE 20 mg BID SEGUNDO Administration Fentanyl 50 mcg 04/04/22 15:56 05/11/22 22:00 Fentanyl 100 Mcg/2 Ml Inj IV 50 mcg Q2HR PRN Administration For CPOT of greater than 3 Heparin Sodium (Porcine) 5,000 unit 04/03/22 06:00 05/13/22 06:44 Heparin 5,000 Unit/1 Ml Vial SUB-Q 5,000 unit Q8HR SEGUNDO Administration Insulin Human Lispro 0 unit 05/05/22 06:00 05/13/22 06:44 Insulin Lispro 100 Unit/Ml SUB-Q Not Given Q8HR ON LICENSE OF [facility] Protocol Magnesium Hydroxide 30 ml 04/02/22 23:53 Magnesium Hydroxide (Mom) Oral Liqd Udc PO Q4H PRN Constipation Metoprolol Tartrate 12.5 mg 05/03/22 13:00 05/13/22 11:08 Metoprolol Tartrate 25 Mg Tab FEEDTUBE 12.5 mg Q6HR SEGUNDO Administration Ondansetron HCl 4 mg 04/02/22 23:53 Ondansetron 4 Mg/2 Ml Inj IV Q8H PRN Nausea And Vomiting Polyethylene Glycol 17 gm 04/08/22 10:00 05/13/22 11:24 Polyethylene Glycol 3350 17 Gm Powder PO Not Given QDAY SEGUNDO Quetiapine Fumarate 50 mg 05/13/22 11:00 05/13/22 11:07 Quetiapine 100 Mg Tab FEEDTUBE 50 mg BID SEGUNDO Administration Scopolamine 1 each 05/12/22 09:00 05/12/22 17:37 Scopolamine Transdermal Patch 72 Hr TD Not Given Q3D SEGUNDO Senna 17.6 mg 04/28/22 10:00 05/13/22 11:26 Sennosides Oral Liqd 8.8 Mg/5 Ml Oral Liqd FEEDTUBE Not Given Q12HR SEGUNDO Sodium Chloride 10 ml 04/03/22 10:00 05/13/22 11:09 Sodium Chloride 0.9% 10 Ml Flush Syringe IV 10 ml BID SEGUNDO Administration Sodium Chloride 10 ml 04/02/22 23:53 Sodium Chloride 0.9% 10 Ml Flush Syringe IV PRN PRN LINE FLUSH Nutrition/Malnutrition Assess - Dietary Evaluation Nutrition/Malnutrition Findings: Nutrition Notes Start: 04/04/22 13:13 Freq: Status: Active Protocol: Document 05/11/22 11:49 COLLEEN (Rec: 05/11/22 12:02 COLLEEN [id number]) Nutrition Notes Initial or Follow up Reassessment Current Diagnosis Coronary Artery Disease, Decubitus(Pressure Ulcer), Sepsis,Respiratory Failure, Malnutrition Other Pertinent Diagnosis HCAP, ALS, Broncopneumonia, NSTEMI, Cardiomyopathy, ... Current Diet TF-Vital AF 1.2 Inderjit @ 50 ml/hr (since D 04/15). Labs/Tests 05/09: Cl 92.9, CO2 40, Crea < 0.2, Glu 141. Pertinent Medications 05/11: Nutritionally unremarkable. Height 5 ft 4.8 in Weight 46.8 kg [place] Body Weight (kg) 61.27 BMI 17.2 Weight change and time frame No body weight change reported in 5 weeks. Weight Status Underweight Subjective/Other Information RD consult for routine F/U on TF tolerance/continuation. TF continues as prescribed, and well tolerated, according to RN notes. Pt continues on Mechanical ventilation, O2 saturation @ 93%, according to Physical Assessment Histroy notes. Pt will be discharged home with family; awaiting home- Vent family training to be over on 05/12, according to Progress notes. Percent of energy/protein needs met: Prescribed TF-Vital AF 1.2 Inderjit @ 50 ml/hr provides for energy/protein needs (1,450 Kcal/91 g) during LOS, 98% Kcal; 100% AA. Burn Absent Trauma Absent GI Symptoms Constipation Difficulty In Swallowing,Chewing Food Allergy No Skin Integrity/Comment Sacral open wound. Current % PO Other Minimum of two criteria No #1 Nutrition Diagnosis Inadequate oral intake Diagnosis Progress(for reassessment Continues documentation) Is patient on ventilator? Yes Is Patient Ambulatory and/or Out of Bed No REE-([facility]-confined to bed) [phone] Calculation Used for Recommendations [facility] Additional Notes Protein: 1.2-2 g/Kg IBW; 73- 122 g/day. Fluids: 1 ml/Kcal, or as per MD. Nutrition Intervention Nutrition Support: Continue TF-Vital AF 1.2 Inderjit @ 50 ml/hr. Flush: 80 ml water Q 4 hr, or as per MD. Kcal 1,450 Protein (gm) 91 Carbohydrates (gm) 134 Fat (gm) 65 Fluid (mL) 980 Fiber (gm) 6 % RDI: 98% Kcal; 100% AA. Goal #1 Provide at least 75% of energy /protein needs through Enteral Feeding during LOS. Follow-Up By: 05/18/22 Additional Comments Continue monitoring TF tolerance and BM.
[2022-05-06] MEDS: METOPROLOL TARTRATE 25 MG TAB FEEDTUBE SCH ×4 (00:46→17:18)
[2022-05-06] MEDS: INSULIN LISPRO 100 UNIT/ML SUB-Q SCH ×3 (06:19→21:35)
[2022-05-06] MEDS: HEPARIN 5,000 UNIT/1 ML VIAL SUB-Q SCH ×3 (06:19→21:04)
[2022-05-06] MEDS: ALBUTEROL 2.5 MG/3 ML NEBU IH SCH ×2 (07:57→21:38)
[2022-05-06] MEDS: POLYETHYLENE GLYCOL 3350 17 GM POWDER PO SCH (09:12)
[2022-05-06] MEDS: QUEtiapine 25 MG TAB FEEDTUBE SCH ×2 (09:13→21:03)
[2022-05-06] MEDS: SENNOSIDES ORAL LIQD 8.8 MG/5 ML ORAL LIQD FEEDTUBE SCH ×2 (09:13→21:03)
[2022-05-06] MEDS: FAMOTIDINE 20 MG TAB FEEDTUBE SCH ×2 (09:13→21:03)
[2022-05-06] MEDS: DOCUSATE SODIUM 100 MG/10 ML ORAL LIQD FEEDTUBE SCH ×2 (09:13→21:03)
--- NOTE | 2022-05-06 12:58 | Progress Note ---
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, recently hospitalized at [facility] admitted for acute hypoxemic respiratory failure 2/2 pneumonia Neuro: h/o ALS -s/p precedex, fentanyl gtt -Reorientation as needed -Maintain sleep-wake cycle -As needed analgesia -CT head with no acute intracranial process -Per family patient is nonverbal at baseline but responsive -Seroquel Cardiac: Suspect ischemic coronary artery disease, h/o cardiomyopathy -Cardiology consulted, appreciate recommendations -continue conservative management -Blood pressure monitoring per protocol -s/p Vasopressor support with Levophed -Echocardiogram shows ejection fraction of 40 to 45%, mild global hypokinesis of left ventricle -Nitro patch, BB Respiratory: Acute hypoxic respiratory failure -CCM consulted, appreciate recommendations -Intubated on 04/02 with a 7.50 ETT attempt at the lips -s/p trach on 04/14 and s/p bronch on 04/15 -A.m. vent settings: Assist-control/ PRVC TV 400, rate 14, Peep 10, FiO2 45% -See RT notes for titration -CPT and mucomyst -VAP bundle -SPO2 monitoring GI: Moderate protein calorie malnutrition -24 hours + 217 mL -PPI -Peg 04/14 -NTR consulted for tube feedings -BR: Senokot/colace, MiraLAX : Metabolic Alkalosis -Record intake and output -Renally dose medications -Avoid nephrotoxic medications -Daily weights -trend BMP ID: Sepsis, Acute Bronchopneumonia, HAP (Pseudomonas and Enterobacter tracheal aspirate), blood culture with bacillus species -Infectious disease consulted, appreciate recommendation-> signed off -Per infectious disease patient was recently admitted to [facility] but discharged home with home hospice and not giving antibiotics -04/15 Tracheal aspirate with Pseudomonas aeruginosa, Enterobacter aerogenes -04/02 blood culture with bacillus species, 04/05 blood culture NGTD -MRSA (-) -s/p cefepime for 14 days -Monitor WBC and temperature curve Endo: NAD -Avoid hypoglycemia -SSI -Accu-Cheks q 6 Heme: Leukocytosis -Heparin subq -Trend CBC -Transfuse hemoglobin less than 7 -SCDs to BLE while in bed Advance Care Planning - Disease education, care plan, diagnoses, and prognosis were discussed patient's , Carly Lopez, and patient daughter, Kaylee Warren, who translated for #[phone]. They reported that patient was following at [facility] for his ALS and during recent hospitalization at [facility] they were told nothing else can be offered to patient at this time and patient was discharge home with home hospice and PO morphine. First hospice visit was on , 04/01 however, patient became unresponsive 04/02 and they brought in to the hospital. - Goal of care and code status were also addressed at that time. Family wants to wait for a couple days to see how patient respond to current treatment before making a decision. All questions and concerns were addressed at this time. Patient family acknowledged understanding and agreement with care plan. -Patient remains a FULL CODE status. -04/05: Discussion at bedside with interpreting service with Dr. Valdivia and family state they would discuss next steps amongst themselves and let healthcare team know of decisions -04/06: extensive discussion with family ( and son) with Dr. Grayson regarding goals of care -04/08: Extensive discussion with with the use of test technician line regarding goals of care; no decision made. Possible consult to surgery for trach/PEG early next week. -04/09: Discussion with and her sister with Dr. Grayson and then with Dr. Pineda-> Consulted surgery for trach/peg -04/30 Insurance Denied LTAC, plan for possible SNF placement now. Case management to arrange -Family declined SNF -Awaiting discharge home with ventilator setup for home care due to need for ventilation secondary to trachestomy The high probability of a clinically significant, sudden or life threatening deterioration of the [resp] system(s) required my full and direct attention, intervention and personal management. The aggregate critical care time was [60] minutes. 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 Work-up in the emergency department revealed leukocytosis, elevated troponin and hyponatremia and CXR revealed moderate to large pleural effusion on the right. Patient was having agonal breathing in the emergency department and was intubated. Patient was admitted to the hospitalist service with consults to [facility], cardiology and infectious disease for further work-up. Hospital Course to Date: 04/03: Intubated and Sedated on versed gtt, RASS-5. CT head/brain noted with no acute intracranial abnormality. Plan to initiated precededx gtt and wean off versed for a RASS goal of 0 to -2. CT chect also reviewed, findings are most consistent with acute bronchopneumonia. Continue empiric IV Abx, vent adjustment per [facility]. ID consulted. Continue to F/U on cultures. Titrate pressor for MAP above 65. Medical records requested from [facility]. 04/04: Remains stable on the vent, easily arousable on precedex gtt, not following commands. Plan for SAT/SBT today. PRN analgesia for CPOT greater than 3. Fevers improved, cultures and procal pending. Continue current IV abx, ID also consulted. Remains on low dose pressors, titrate pressors for a MAP above 65. 04/05: Long discussion with family with use of translation phone with [facility] r egarding goals of care. Family to have meeting amongst themselves and informed care team of decisions. Fentanyl drip added for respiratory distress. Remains on Precedex drip. Antibiotics per ID. Given 2L NS bolus with levophed gtt 04/06: Family discussion with Dr. Grayson for goals of care. CXR shows possible mucus plug, continue CPT as FiO2 is being able to be weaned. Potassium repleted. Weaning fentnyl gtt. 04/07: Ultrasound guided thoracentesis today scheduled, inadequate amount of pleural effusion on so not completed. Patient was started on Levophed overnight which was weaned off this morning however had to be started twice a day. Remains on fentanyl and Precedex. Cardiology discontinued BB and ACEi in setting of hypotension. 04/08: COVID-19 PCR negative. Routine EEG ordered by cardiology which showed ST changes, cardiology aware. They will continue conservative treatment. Repeat troponins 0.030 which are less than admit of 0.048. Dr. Grayson had a long discussion with with the use of test technician today at bedside and has not made a decision regarding goals of care. Possible consult to surgery for trach/PEG early next week. Continues to require Precedex and fentanyl drip for sedation. Carvedilol/lisinopril discontinued as patient is continuously on Levophed. 04/09: No acute events reported overnight, remains on fentanyl, Precedex and Levophed drips. Dr. Grayson and Dr. Pineda updated family at bedside extensively today. Consulted surgery for trach/PEG. COVID-19 PCR negative. 04/10: Patient noted to have desaturation episodes, FiO2 increased slightly to 35%. Will add Mucomyst. Remains on fentanyl and Precedex. Off of Levophed. Surgery consulted for trach/PEG. 04/11: FiO2 increased over night likely related to hypoxia, continues on fent gtt, weaning precedex gtt as he is also on Seroquel. Will d/w CCM re scheduled or prn oxycodone 04/12: Periods of hypoxia and tachycardia this am. Symptoms improved post deep suction and tracheal lavage, Repeat CXR noted with no significant change. Continue CPT and mucomyst. Plan for possible trach/PEG tomorrow by general surgery. 04/13: Remains stable on the vent. Patient is wake and tracking but does not follow simple commands. No report of hypoxia from overnight, continue CPT and mucomyst. Plan for track and PEG today by General Surgery. Plan for LTAC placement post procedure, case management to arrange. 04/14: VIRGILIO overnight, Trach and PEG postponed for today by general surgery. Plan for LTAC placement post procedure, case management to arrange. 04/15: S/p Trach and PEG. Up to 80% FiO2 this am, this am CXR noted suggesting possible mucus plug. D/W [facility] plan for bronch today. Continue CPT and mucomyst. Plan of care thoroughly discussed with patient's and son (who translated for ) at the bedside. Per , dairy feed worker had already discussed the risks and benefits of the procedure yesterday. She verbalized understanding and agreed with procedure and current care plan, consent signed. Okay to use PEG-tube for meds this am, resume TF once okay by general Surgery. Case management to arrange LTAC placement. 04/16: s/p Bronchocopy by CCM. FiO2 down to 60%, angela 10 this am. This am CXR with moderate improvement. Continue CPT and mucomyst, wean Fio2 as tolerated for SPO2 above 92%. Patient is tolerating TF, advance to goal as ordered. Possible LTAC placement, case management to arrange. 04/17: VIRGILIO overnight. remains stable on the vent, recent CXR and this am ABG noted. Continue CPT and mucomyst, wean Fio2 as tolerated. 04/18: Remains stable on the vent, Fio2 down to 55% and peep of 8 this am. Continue to wean as tolerated, CPT, and mucomyst. Dsiposition- LTAC placement, case management to arrange. 04/19: No acute events overnight. Continue current management. 04/20: No acute events overnight, continue current management 04/21: Patient had chest ultrasound which showed trace pleural effusions, chest x-ray improved after the addition of Mucomyst yesterday. FiO2 55-65%. No acute events overnight. more interactive today. 04/22: Seroquel changed to BID, FiO2 was increased to 60%. RT increased FIO2 to 100 d/t desaturation into the 80s but was able to wean down. CCM increased PEEP and decreased FiO2. 04/23: CCM increase PEEP, no acute events reported overnight. 04/24: Spoke to RT about decreasing FiO2 as tolerated. No acute events reported overnight. Continue supportive management. 04/25: Weaning as tolerated. no acute events overnight. RT to attempt CPAP again today 04/26: VIRGILIO overnight. Patient failed PSV trial again this morning. Continue supportive management and daily PST trial. 04/27: Patient failed PSV trial again this am due to episodes of apnea. Continue daily PSV trial as tolerated. Case management to arrange LTAC placement 04/28: Remains stable. Continue daily PSV trial as tolerated. Awaiting approval for LTAC 04/29: VIRGILIO overnight. Continue daily PSV trial. Awaiting approval for LTAC, case management to arrange. 04/30: Patient continue to fail PSV trial. Per case management patient was denied for LTAC, now possible SNF placement. Case managemen to arrange. Continue supportive measures and daily PSV trial as tolerated. 05/01: VIRGILIO overnight. Continue supportive measures and daily PSV trial as tolerated. Possible SNF placement. 05/02: Continue supportive measures and daily PSV trial as tolerated. Possible SNF placement, case management to arrange 05/03: no acute events overnight, CM arranging home vent setup. Family declined SNF. 05/04: RN/RT reports thin secretions, increase in FiO2 for decreased oxygen on AB G. No acute events overnight. 05/05: Family scheduled for teaching session today at 2pm. Increase in FiO2 overnight to 45%. Awaiting vent setup for home care for ventilation secondary to tracheostomy. 05/06: No acute events reported overnight, T-max 100.9. FiO2 45%. Awaiting discharge home with vent when teaching is completed Hospitalist Physical - Constitutional Vitals: Temp Pulse Resp BP Pulse Ox 100.4 F H 124 H 19 108/62 97 05/06/22 11:43 05/06/22 11:48 05/06/22 09:00 05/06/22 11:48 05/06/22 11:48 General appearance: Present: no acute distress, cachectic, other (trach/) - EENT Eyes: Present: PERRL, EOM intact ENT: dentition normal - Neck Neck: Present: normal ROM - Respiratory Respiratory effort: normal Respiratory: bilateral: diminished - Cardiovascular Rhythm: regular Heart Sounds: Present: S1 & S2. Absent: systolic murmur, diastolic murmur - Extremities Extremities: no ischemia, pulses intact, pulses symmetrical, No edema, normal temperature, normal color Peripheral Pulses: within normal limits - Abdominal General gastrointestinal: soft, non-tender, non-distended, normal bowel sounds - Integumentary Integumentary: Present: warm, dry - Psychiatric Psychiatric: cooperative - Neurologic Neurologic: other (With cough/gag, pupils equal and reactive, slight movement to bilateral upper extremities) - Allied Health Allied health notes reviewed: nursing, RT, social work HEART Score - HEART Score Troponin: Troponin T 0.031 ng/mL (0.00-0.029) H 04/08/22 17:47 Results - Labs CBC & Chem 7: 05/05/22 04:23 05/05/22 04:23 Labs: Laboratory Last Values WBC 14.4 K/mm3 (4.5-11.0) H 05/05/22 04:23 RBC 2.75 M/mm3 (3.65-5.03) L 05/05/22 04:23 Hgb 8.2 gm/dl (11.8-15.2) L 05/05/22 04:23 Hct 25.2 % (35.5-45.6) L 05/05/22 04:23 MCV 92 fl (84-94) 05/05/22 04:23 MCH 30 pg (28-32) 05/05/22 04:23 MCHC 32 % (32-34) 05/05/22 04:23 RDW 14.4 % (13.2-15.2) 05/05/22 04:23 Plt Count 320 K/mm3 (140-440) 05/05/22 04:23 Lymph % (Auto) 4.3 % (13.4-35.0) L 04/07/22 03:51 [place] % (Auto) 8.8 % (0.0-7.3) H 04/07/22 03:51 Eos % (Auto) 0.1 % (0.0-4.3) 04/07/22 03:51 Baso % (Auto) 0.2 % (0.0-1.8) 04/07/22 03:51 Lymph # (Auto) 0.6 K/mm3 (1.2-5.4) L 04/07/22 03:51 [place] # (Auto) 1.3 K/mm3 (0.0-0.8) H 04/07/22 03:51 Eos # (Auto) 0.0 K/mm3 (0.0-0.4) 04/07/22 03:51 Baso # (Auto) 0.0 K/mm3 (0.0-0.1) 04/07/22 03:51 Add Manual Diff Complete 04/02/22 19:39 Total Counted 100 04/02/22 19:39 Seg Neutrophils % 86.6 % (40.0-70.0) H 04/07/22 03:51 Seg Neuts % (Manual) 94.0 % (40.0-70.0) H 04/02/22 19:39 Band Neutrophils % 0 % 04/02/22 19:39 Lymphocytes % (Manual) 1.0 % (13.4-35.0) L 04/02/22 19:39 Reactive Lymphs % (Man) 0 % 04/02/22 19:39 Monocytes % (Manual) 5.0 % (0.0-7.3) 04/02/22 19:39 Eosinophils % (Manual) 0 % (0.0-4.3) 04/02/22 19:39 Basophils % (Manual) 0 % (0.0-1.8) 04/02/22 19:39 Metamyelocytes % 0 % 04/02/22 19:39 Myelocytes % 0 % 04/02/22 19:39 Promyelocytes % 0 % 04/02/22 19:39 Blast Cells % 0 % 04/02/22 19:39 Nucleated RBC % Not Reportable 04/02/22 19:39 Seg Neutrophils # 12.7 K/mm3 (1.8-7.7) H 04/07/22 03:51 Seg Neutrophils # Man 13.4 K/mm3 (1.8-7.7) H 04/02/22 19:39 Band Neutrophils # 0.0 K/mm3 04/02/22 19:39 Lymphocytes # (Manual) 0.1 K/mm3 (1.2-5.4) L 04/02/22 19:39 Abs React Lymphs (Man) 0.0 K/mm3 04/02/22 19:39 Monocytes # (Manual) 0.7 K/mm3 (0.0-0.8) 04/02/22 19:39 Eosinophils # (Manual) 0.0 K/mm3 (0.0-0.4) 04/02/22 19:39 Basophils # (Manual) 0.0 K/mm3 (0.0-0.1) 04/02/22 19:39 Metamyelocytes # 0.0 K/mm3 04/02/22 19:39 Myelocytes # 0.0 K/mm3 04/02/22 19:39 Promyelocytes # 0.0 K/mm3 04/02/22 19:39 Blast Cells # 0.0 K/mm3 04/02/22 19:39 WBC Morphology Not Reportable 04/02/22 19:39 Hypersegmented Neuts Not Reportable 04/02/22 19:39 Hyposegmented Neuts Not Reportable 04/02/22 19:39 Hypogranular Neuts Not Reportable 04/02/22 19:39 Smudge Cells Not Reportable 04/02/22 19:39 Toxic Granulation Not Reportable 04/02/22 19:39 Toxic Vacuolation Not Reportable 04/02/22 19:39 Dohle Bodies Not Reportable 04/02/22 19:39 Pelger-Huet Anomaly Not Reportable 04/02/22 19:39 Terry Rods Not Reportable 04/02/22 19:39 Platelet Estimate Consistent w auto 04/02/22 19:39 Clumped Platelets Not Reportable 04/02/22 19:39 Plt Clumps, EDTA Not Reportable 04/02/22 19:39 Large Platelets Not Reportable 04/02/22 19:39 Giant Platelets Not Reportable 04/02/22 19:39 Platelet Satelliting Not Reportable 04/02/22 19:39 Plt Morphology Comment Not Reportable 04/02/22 19:39 RBC Morphology Not Reportable 04/02/22 19:39 Dimorphic RBCs Not Reportable 04/02/22 19:39 Polychromasia Not Reportable 04/02/22 19:39 Hypochromasia Not Reportable 04/02/22 19:39 Poikilocytosis Not Reportable 04/02/22 19:39 Anisocytosis 1+ 04/02/22 19:39 Microcytosis Not Reportable 04/02/22 19:39 Macrocytosis Not Reportable 04/02/22 19:39 Spherocytes Not Reportable 04/02/22 19:39 Pappenheimer Bodies Not Reportable 04/02/22 19:39 Sickle Cells Not Reportable 04/02/22 19:39 Target Cells Not Reportable 04/02/22 19:39 Tear Drop Cells Not Reportable 04/02/22 19:39 Ovalocytes Not Reportable 04/02/22 19:39 Helmet Cells Not Reportable 04/02/22 19:39 Patricio-Healdton Bodies Not Reportable 04/02/22 19:39 Frank[place] Rings Not Reportable 04/02/22 19:39 Cheikh Cells Not Reportable 04/02/22 19:39 Bite Cells Not Reportable 04/02/22 19:39 Crenated Cell Not Reportable 04/02/22 19:39 Elliptocytes Not Reportable 04/02/22 19:39 Acanthocytes (Spur) Not Reportable 04/02/22 19:39 Rouleaux Not Reportable 04/02/22 19:39 Hemoglobin C Crystals Not Reportable 04/02/22 19:39 Schistocytes Not Reportable 04/02/22 19:39 Malaria parasites Not Reportable 04/02/22 19:39 Denton Bodies Not Reportable 04/02/22 19:39 Hem Pathologist Commnt No 04/02/22 19:39 PT 13.6 Sec. (12.2-14.9) 04/13/22 04:30 INR 0.94 (0.87-1.13) 04/13/22 04:30 APTT 35.7 Sec. (24.2-36.6) 04/07/22 03:51 ABG pH 7.383 pH Units (7.350-7.450) 05/04/22 09:36 ABG pCO2 75.0 mm Hg 05/04/22 09:36 ABG pO2 55.4 mm Hg (80.0-90.0) L 05/04/22 09:36 ABG HCO3 43.7 mmol/L (20.0-26.0) H 05/04/22 09:36 ABG O2 Saturation 87.4 % (95.0-99.0) L 05/04/22 09:36 ABG O2 Content 11.0 (0.0-44) 05/04/22 09:36 ABG Base Excess 16.1 mmol/L (-2.0-3.0) H 05/04/22 09:36 ABG Hemoglobin 9.1 gm/dl (14.0-18.0) L 05/04/22 09:36 ABG Carboxyhemoglobin 1.5 % (0.0-5.0) 05/04/22 09:36 ABG Methemoglobin 0.4 % (0.0-1.5) 05/04/22 09:36 Oxyhemoglobin 85.7 % (95.0-99.0) L 05/04/22 09:36 FiO2 30 % 05/04/22 09:36 Sodium 137 mmol/L (137-145) 05/05/22 04:23 Potassium 4.3 mmol/L (3.6-5.0) 05/05/22 04:23 Chloride 91.3 mmol/L (98-107) L 05/05/22 04:23 Carbon Dioxide 38 mmol/L (22-30) H 05/05/22 04:23 Anion Gap 12 mmol/L 05/05/22 04:23 BUN 23 mg/dL (9-20) H 05/05/22 04:23 Creatinine < 0.2 mg/dL (0.8-1.3) L 05/05/22 04:23 Estimated GFR > 60 ml/min 05/05/22 04:23 BUN/Creatinine Ratio 115 % 05/05/22 04:23 Glucose 128 mg/dL (75-100) H 05/05/22 04:23 POC Glucose 136 mg/dL (70-105) H 05/06/22 05:13 Lactic Acid 1.90 mmol/L (0.7-2.0) 04/02/22 19:39 Calcium 8.8 mg/dL (8.4-10.2) 05/05/22 04:23 Phosphorus 3.40 mg/dL (2.5-4.5) 05/05/22 04:23 Magnesium 1.90 mg/dL (1.7-2.3) 05/05/22 04:23 Total Bilirubin 0.80 mg/dL (0.1-1.2) 04/02/22 19:39 AST 15 units/L (5-40) 04/02/22 19:39 ALT 9 units/L (7-56) 04/02/22 19:39 Alkaline Phosphatase 43 units/L (35-129) 04/02/22 19:39 Total Creatine Kinase 46 units/L (55-170) L 04/08/22 17:47 CK-MB (CK-2) 2.6 ng/mL (0.0-4.0) 04/08/22 17:47 CK-MB (CK-2) Rel Index 5.6 (0-4) H 04/08/22 17:47 Troponin T 0.031 ng/mL (0.00-0.029) H 04/08/22 17:47 C-Reactive Protein 31.60 mg/dL (0.00-1.30) H 04/04/22 04:18 Total Protein 4.6 g/dL (6.3-8.2) L 04/02/22 19:39 Albumin 2.7 g/dL (3.9-5) L 04/02/22 19:39 Albumin/Globulin Ratio 1.4 % 04/02/22 19:39 Triglycerides 80 mg/dL (2-149) 04/02/22 19:39 Cholesterol 94 mg/dL (50-199) 04/02/22 19:39 LDL Cholesterol Direct 27 mg/dL (50-130) L 04/02/22 19:39 HDL Cholesterol 47 mg/dL (40-59) 04/02/22 19:39 Cholesterol/HDL Ratio 2.00 % 04/02/22 19:39 Procalcitonin 0.08 ng/mL (<0.15) 04/04/22 04:18 Urine Color Aracely (Yellow) 04/05/22 17:45 Urine Turbidity Cloudy (Clear) 04/05/22 17:45 Urine pH 5.0 (5.0-7.0) 04/05/22 17:45 Ur Specific Edmond 1.021 (1.003-1.030) 04/05/22 17:45 Urine Protein 30 mg/dl mg/dL (Negative) 04/05/22 17:45 Urine Glucose (UA) Neg mg/dL (Negative) 04/05/22 17:45 Urine Ketones Tr mg/dL (Negative) 04/05/22 17:45 Urine Blood Sm (Negative) 04/05/22 17:45 Urine Nitrite Neg (Negative) 04/05/22 17:45 Urine Bilirubin Neg (Negative) 04/05/22 17:45 Urine Urobilinogen < 2.0 mg/dL (<2.0) 04/05/22 17:45 Ur Leukocyte Esterase Tr (Negative) 04/05/22 17:45 Urine WBC (Auto) 8.0 /HPF (0.0-6.0) H 04/05/22 17:45 Urine RBC (Auto) 3.0 /HPF (0.0-6.0) 04/05/22 17:45 U Epithel Cells (Auto) 2.0 /HPF (0-13.0) 04/05/22 17:45 Urine Bacteria (Auto) 1+ /HPF (Negative) 04/02/22 Unknown Hyaline Casts 1 /LPF 04/05/22 17:45 Urine Mucus 3+ /HPF 04/05/22 17:45 Nasal Screen MRSA (PCR) Negative (Negative) 04/05/22 12:37 Vancomycin Trough 6.0 ug/mL (5.0-20.0) 04/05/22 18:53 Coronavirus (PCR) Negative (Negative) 04/07/22 14:52 Perez/IV: Voiding Method Condom Catheter Active Medications - Current Medications Current Medications: Generic Name Dose Route Start Last Admin Trade Name Freq PRN Reason Stop Dose Admin Acetaminophen 650 mg 04/02/22 23:53 05/04/22 21:37 Acetaminophen 325 Mg Tab PO 650 mg Q6H PRN Administration Pain MILD(1-3)/Fever >100.5/FAITH Acetylcysteine 200 mg 05/04/22 20:00 05/05/22 21:15 Acetylcysteine 20% 200 Mg/1 Ml *For Inhalation Use* INHALATION 200 mg Q12HRT SEGUNDO Administration Albuterol 2.5 mg 05/05/22 20:00 05/06/22 07:57 Albuterol 2.5 Mg/3 Ml Nebu IH 2.5 mg Q12HRT SEGUNDO Administration Bisacodyl 10 mg 04/07/22 09:44 04/12/22 10:06 Bisacodyl 10 Mg Rect Supp MN 10 mg QDAY PRN Administration Constipation Dextrose 50 ml 04/06/22 17:54 Dextrose 50% In Water (25gm) 50 Ml Syringe IV Q30MIN PRN Hypoglycemia Protocol Docusate Sodium 100 mg 04/28/22 10:00 05/06/22 09:13 Docusate Sodium 100 Mg/10 Ml Oral Liqd FEEDTUBE 100 mg BID SEGUNDO Administration Famotidine 20 mg 04/06/22 10:00 05/06/22 09:13 Famotidine 20 Mg Tab FEEDTUBE 20 mg BID SEGUNDO Administration Fentanyl 50 mcg 04/04/22 15:56 05/04/22 12:03 Fentanyl 100 Mcg/2 Ml Inj IV 50 mcg Q2HR PRN Administration For CPOT of greater than 3 Heparin Sodium (Porcine) 5,000 unit 04/03/22 06:00 05/06/22 06:19 Heparin 5,000 Unit/1 Ml Vial SUB-Q 5,000 unit Q8HR SEGUNDO Administration Insulin Human Lispro 0 unit 05/05/22 06:00 05/06/22 06:19 Insulin Lispro 100 Unit/Ml SUB-Q Not Given Q8HR [facility] Protocol Magnesium Hydroxide 30 ml 04/02/22 23:53 Magnesium Hydroxide (Mom) Oral Liqd Udc PO Q4H PRN Constipation Metoprolol Tartrate 12.5 mg 05/03/22 13:00 05/06/22 06:20 Metoprolol Tartrate 25 Mg Tab FEEDTUBE 12.5 mg Q6HR SEGUNDO Administration Ondansetron HCl 4 mg 04/02/22 23:53 Ondansetron 4 Mg/2 Ml Inj IV Q8H PRN Nausea And Vomiting Polyethylene Glycol 17 gm 04/08/22 10:00 05/06/22 09:12 Polyethylene Glycol 3350 17 Gm Powder PO 17 gm QDAY SEGUNDO Administration Quetiapine Fumarate 50 mg 04/28/22 10:00 05/06/22 09:13 Quetiapine 25 Mg Tab FEEDTUBE 50 mg BID SEGUNDO Administration Senna 17.6 mg 04/28/22 10:00 05/06/22 09:13 Sennosides Oral Liqd 8.8 Mg/5 Ml Oral Liqd FEEDTUBE 17.6 mg Q12HR SEGUNDO Administration Sodium Chloride 10 ml 04/03/22 10:00 05/06/22 09:16 Sodium Chloride 0.9% 10 Ml Flush Syringe IV 10 ml BID SEGUNDO Administration Sodium Chloride 10 ml 04/02/22 23:53 Sodium Chloride 0.9% 10 Ml Flush Syringe IV PRN PRN LINE FLUSH Nutrition/Malnutrition Assess - Dietary Evaluation Nutrition/Malnutrition Findings: Nutrition Notes Start: 04/04/22 13:13 Freq: Status: Active Protocol: Document 05/04/22 12:27 COLLEEN (Rec: 05/04/22 12:46 COLLEEN [email or web address]) Nutrition Notes Initial or Follow up Reassessment Current Diagnosis Coronary Artery Disease, Decubitus(Pressure Ulcer), Sepsis,Respiratory Failure, Malnutrition Other Pertinent Diagnosis HCAP, ALS, Broncopneumonia, NSTEMI, Cardiomyopathy, ... Current Diet TF-Vital AF 1.2 Inderjit @ 50 ml/hr (since D 04/15). Labs/Tests 05/03: Na 134, Cl 90.5, CO2 38 , BUN 21, Crea <0.2, Glu 126. Pertinent Medications 05/04: Nutritionally unremarkable. Height 5 ft 4.8 in Weight 46.8 kg [place] Body Weight (kg) 61.27 BMI 17.2 Weight change and time frame No body weight change reported in 4 weeks. Weight Status Underweight Subjective/Other Information RD consult for routine F/U on TF tolerance/continuation. TF continues as prescribed, and well tolerated, according to RN notes. Pt continues on Mechanical ventilation, O2 saturation @ 96%, according to Physical Assessment Histroy notes. Pt will be discharged home with family; awaiting home- Vent setup; family declined SNF placement, according to Progress notes. Percent of energy/protein needs met: Prescribed TF-Vital AF 1.2 Inderjit @ 50 ml/hr provides for energy/protein needs (1,450 Kcal/91 g) during LOS, 98% Kcal; 100% AA. Burn Absent Trauma Absent GI Symptoms Constipation Difficulty In Swallowing,Chewing Food Allergy No Skin Integrity/Comment Sacral open wound. Current % PO Other Minimum of two criteria No #1 Nutrition Diagnosis Inadequate oral intake Diagnosis Progress(for reassessment Continues documentation) Is patient on ventilator? Yes Is Patient Ambulatory and/or Out of Bed No REE-([facility]-confined to bed) [phone] Calculation Used for Recommendations [facility] Additional Notes Protein: 1.2-2 g/Kg IBW; 73- 122 g/day. Fluids: 1 ml/Kcal, or as per MD. Nutrition Intervention Nutrition Support: Continue TF-Vital AF 1.2 Inderjit @ 50 ml/hr. Flush: 80 ml water Q 4 hr, or as per MD. Kcal 1,450 Protein (gm) 91 Carbohydrates (gm) 134 Fat (gm) 65 Fluid (mL) 980 Fiber (gm) 6 % RDI: 98% Kcal; 100% AA. Goal #1 Provide at least 75% of energy /protein needs through Enteral Feeding during LOS. Follow-Up By: 05/11/22 Additional Comments Continue monitoring TF tolerance and BM. <NORM GRAYSON - Last Filed: 05/08/22 15:45> Assessment and Plan Assessment and plan: I saw and evaluated the patient. Discussed with the nurse practitioner and agree with their findings and plan as documented in this note. Hospitalist Physical - Constitutional Vitals: Temp Pulse Resp BP Pulse Ox 98.0 F 111 H 14 104/60 100 05/08/22 12:00 05/08/22 13:00 05/08/22 13:00 05/08/22 13:00 05/08/22 13:00 HEART Score - HEART Score Troponin: Troponin T 0.031 ng/mL (0.00-0.029) H 04/08/22 17:47 Results - Labs CBC & Chem 7: 05/05/22 04:23 05/05/22 04:23 Labs: Laboratory Last Values WBC 14.4 K/mm3 (4.5-11.0) H 05/05/22 04:23 RBC 2.75 M/mm3 (3.65-5.03) L 05/05/22 04:23 Hgb 8.2 gm/dl (11.8-15.2) L 05/05/22 04:23 Hct 25.2 % (35.5-45.6) L 05/05/22 04:23 MCV 92 fl (84-94) 05/05/22 04:23 MCH 30 pg (28-32) 05/05/22 04:23 MCHC 32 % (32-34) 05/05/22 04:23 RDW 14.4 % (13.2-15.2) 05/05/22 04:23 Plt Count 320 K/mm3 (140-440) 05/05/22 04:23 Lymph % (Auto) 4.3 % (13.4-35.0) L 04/07/22 03:51 [place] % (Auto) 8.8 % (0.0-7.3) H 04/07/22 03:51 Eos % (Auto) 0.1 % (0.0-4.3) 04/07/22 03:51 Baso % (Auto) 0.2 % (0.0-1.8) 04/07/22 03:51 Lymph # (Auto) 0.6 K/mm3 (1.2-5.4) L 04/07/22 03:51 [place] # (Auto) 1.3 K/mm3 (0.0-0.8) H 04/07/22 03:51 Eos # (Auto) 0.0 K/mm3 (0.0-0.4) 04/07/22 03:51 Baso # (Auto) 0.0 K/mm3 (0.0-0.1) 04/07/22 03:51 Add Manual Diff Complete 04/02/22 19:39 Total Counted 100 04/02/22 19:39 Seg Neutrophils % 86.6 % (40.0-70.0) H 04/07/22 03:51 Seg Neuts % (Manual) 94.0 % (40.0-70.0) H 04/02/22 19:39 Band Neutrophils % 0 % 04/02/22 19:39 Lymphocytes % (Manual) 1.0 % (13.4-35.0) L 04/02/22 19:39 Reactive Lymphs % (Man) 0 % 04/02/22 19:39 Monocytes % (Manual) 5.0 % (0.0-7.3) 04/02/22 19:39 Eosinophils % (Manual) 0 % (0.0-4.3) 04/02/22 19:39 Basophils % (Manual) 0 % (0.0-1.8) 04/02/22 19:39 Metamyelocytes % 0 % 04/02/22 19:39 Myelocytes % 0 % 04/02/22 19:39 Promyelocytes % 0 % 04/02/22 19:39 Blast Cells % 0 % 04/02/22 19:39 Nucleated RBC % Not Reportable 04/02/22 19:39 Seg Neutrophils # 12.7 K/mm3 (1.8-7.7) H 04/07/22 03:51 Seg Neutrophils # Man 13.4 K/mm3 (1.8-7.7) H 04/02/22 19:39 Band Neutrophils # 0.0 K/mm3 04/02/22 19:39 Lymphocytes # (Manual) 0.1 K/mm3 (1.2-5.4) L 04/02/22 19:39 Abs React Lymphs (Man) 0.0 K/mm3 04/02/22 19:39 Monocytes # (Manual) 0.7 K/mm3 (0.0-0.8) 04/02/22 19:39 Eosinophils # (Manual) 0.0 K/mm3 (0.0-0.4) 04/02/22 19:39 Basophils # (Manual) 0.0 K/mm3 (0.0-0.1) 04/02/22 19:39 Metamyelocytes # 0.0 K/mm3 04/02/22 19:39 Myelocytes # 0.0 K/mm3 04/02/22 19:39 Promyelocytes # 0.0 K/mm3 04/02/22 19:39 Blast Cells # 0.0 K/mm3 04/02/22 19:39 WBC Morphology Not Reportable 04/02/22 19:39 Hypersegmented Neuts Not Reportable 04/02/22 19:39 Hyposegmented Neuts Not Reportable 04/02/22 19:39 Hypogranular Neuts Not Reportable 04/02/22 19:39 Smudge Cells Not Reportable 04/02/22 19:39 Toxic Granulation Not Reportable 04/02/22 19:39 Toxic Vacuolation Not Reportable 04/02/22 19:39 Dohle Bodies Not Reportable 04/02/22 19:39 Pelger-Huet Anomaly Not Reportable 04/02/22 19:39 Terry Rods Not Reportable 04/02/22 19:39 Platelet Estimate Consistent w auto 04/02/22 19:39 Clumped Platelets Not Reportable 04/02/22 19:39 Plt Clumps, EDTA Not Reportable 04/02/22 19:39 Large Platelets Not Reportable 04/02/22 19:39 Giant Platelets Not Reportable 04/02/22 19:39 Platelet Satelliting Not Reportable 04/02/22 19:39 Plt Morphology Comment Not Reportable 04/02/22 19:39 RBC Morphology Not Reportable 04/02/22 19:39 Dimorphic RBCs Not Reportable 04/02/22 19:39 Polychromasia Not Reportable 04/02/22 19:39 Hypochromasia Not Reportable 04/02/22 19:39 Poikilocytosis Not Reportable 04/02/22 19:39 Anisocytosis 1+ 04/02/22 19:39 Microcytosis Not Reportable 04/02/22 19:39 Macrocytosis Not Reportable 04/02/22 19:39 Spherocytes Not Reportable 04/02/22 19:39 Pappenheimer Bodies Not Reportable 04/02/22 19:39 Sickle Cells Not Reportable 04/02/22 19:39 Target Cells Not Reportable 04/02/22 19:39 Tear Drop Cells Not Reportable 04/02/22 19:39 Ovalocytes Not Reportable 04/02/22 19:39 Helmet Cells Not Reportable 04/02/22 19:39 Patricio-Healdton Bodies Not Reportable 04/02/22 19:39 [place] Rings Not Reportable 04/02/22 19:39 Cheikh Cells Not Reportable 04/02/22 19:39 Bite Cells Not Reportable 04/02/22 19:39 Crenated Cell Not Reportable 04/02/22 19:39 Elliptocytes Not Reportable 04/02/22 19:39 Acanthocytes (Spur) Not Reportable 04/02/22 19:39 Rouleaux Not Reportable 04/02/22 19:39 Hemoglobin C Crystals Not Reportable 04/02/22 19:39 Schistocytes Not Reportable 04/02/22 19:39 Malaria parasites Not Reportable 04/02/22 19:39 [place] Bodies Not Reportable 04/02/22 19:39 Hem Pathologist Commnt No 04/02/22 19:39 PT 13.6 Sec. (12.2-14.9) 04/13/22 04:30 INR 0.94 (0.87-1.13) 04/13/22 04:30 APTT 35.7 Sec. (24.2-36.6) 04/07/22 03:51 ABG pH 7.383 pH Units (7.350-7.450) 05/04/22 09:36 ABG pCO2 75.0 mm Hg 05/04/22 09:36 ABG pO2 55.4 mm Hg (80.0-90.0) L 05/04/22 09:36 ABG HCO3 43.7 mmol/L (20.0-26.0) H 05/04/22 09:36 ABG O2 Saturation 87.4 % (95.0-99.0) L 05/04/22 09:36 ABG O2 Content 11.0 (0.0-44) 05/04/22 09:36 ABG Base Excess 16.1 mmol/L (-2.0-3.0) H 05/04/22 09:36 ABG Hemoglobin 9.1 gm/dl (14.0-18.0) L 05/04/22 09:36 ABG Carboxyhemoglobin 1.5 % (0.0-5.0) 05/04/22 09:36 ABG Methemoglobin 0.4 % (0.0-1.5) 05/04/22 09:36 Oxyhemoglobin 85.7 % (95.0-99.0) L 05/04/22 09:36 FiO2 30 % 05/04/22 09:36 Sodium 137 mmol/L (137-145) 05/05/22 04:23 Potassium 4.3 mmol/L (3.6-5.0) 05/05/22 04:23 Chloride 91.3 mmol/L (98-107) L 05/05/22 04:23 Carbon Dioxide 38 mmol/L (22-30) H 05/05/22 04:23 Anion Gap 12 mmol/L 05/05/22 04:23 BUN 23 mg/dL (9-20) H 05/05/22 04:23 Creatinine < 0.2 mg/dL (0.8-1.3) L 05/05/22 04:23 Estimated GFR > 60 ml/min 05/05/22 04:23 BUN/Creatinine Ratio 115 % 05/05/22 04:23 Glucose 128 mg/dL (75-100) H 05/05/22 04:23 POC Glucose 112 mg/dL (70-105) H 05/08/22 14:04 Lactic Acid 1.90 mmol/L (0.7-2.0) 04/02/22 19:39 Calcium 8.8 mg/dL (8.4-10.2) 05/05/22 04:23 Phosphorus 3.40 mg/dL (2.5-4.5) 05/05/22 04:23 Magnesium 1.90 mg/dL (1.7-2.3) 05/05/22 04:23 Total Bilirubin 0.80 mg/dL (0.1-1.2) 04/02/22 19:39 AST 15 units/L (5-40) 04/02/22 19:39 ALT 9 units/L (7-56) 04/02/22 19:39 Alkaline Phosphatase 43 units/L (35-129) 04/02/22 19:39 Total Creatine Kinase 46 units/L (55-170) L 04/08/22 17:47 CK-MB (CK-2) 2.6 ng/mL (0.0-4.0) 04/08/22 17:47 CK-MB (CK-2) Rel Index 5.6 (0-4) H 04/08/22 17:47 Troponin T 0.031 ng/mL (0.00-0.029) H 04/08/22 17:47 C-Reactive Protein 31.60 mg/dL (0.00-1.30) H 04/04/22 04:18 Total Protein 4.6 g/dL (6.3-8.2) L 04/02/22 19:39 Albumin 2.7 g/dL (3.9-5) L 04/02/22 19:39 Albumin/Globulin Ratio 1.4 % 04/02/22 19:39 Triglycerides 80 mg/dL (2-149) 04/02/22 19:39 Cholesterol 94 mg/dL (50-199) 04/02/22 19:39 LDL Cholesterol Direct 27 mg/dL (50-130) L 04/02/22 19:39 HDL Cholesterol 47 mg/dL (40-59) 04/02/22 19:39 Cholesterol/HDL Ratio 2.00 % 04/02/22 19:39 Procalcitonin 0.08 ng/mL (<0.15) 04/04/22 04:18 Urine Color Aracely (Yellow) 04/05/22 17:45 Urine Turbidity Cloudy (Clear) 04/05/22 17:45 Urine pH 5.0 (5.0-7.0) 04/05/22 17:45 Ur Specific [place] 1.021 (1.003-1.030) 04/05/22 17:45 Urine Protein 30 mg/dl mg/dL (Negative) 04/05/22 17:45 Urine Glucose (UA) Neg mg/dL (Negative) 04/05/22 17:45 Urine Ketones Tr mg/dL (Negative) 04/05/22 17:45 Urine Blood Sm (Negative) 04/05/22 17:45 Urine Nitrite Neg (Negative) 04/05/22 17:45 Urine Bilirubin Neg (Negative) 04/05/22 17:45 Urine Urobilinogen < 2.0 mg/dL (<2.0) 04/05/22 17:45 Ur Leukocyte Esterase Tr (Negative) 04/05/22 17:45 Urine WBC (Auto) 8.0 /HPF (0.0-6.0) H 04/05/22 17:45 Urine RBC (Auto) 3.0 /HPF (0.0-6.0) 04/05/22 17:45 U Epithel Cells (Auto) 2.0 /HPF (0-13.0) 04/05/22 17:45 Urine Bacteria (Auto) 1+ /HPF (Negative) 04/02/22 Unknown Hyaline Casts 1 /LPF 04/05/22 17:45 Urine Mucus 3+ /HPF 04/05/22 17:45 Nasal Screen MRSA (PCR) Negative (Negative) 04/05/22 12:37 Vancomycin Trough 6.0 ug/mL (5.0-20.0) 04/05/22 18:53 Coronavirus (PCR) Negative (Negative) 04/07/22 14:52 Perez/IV: Voiding Method Condom Catheter Active Medications - Current Medications Current Medications: Generic Name Dose Route Start Last Admin Trade Name Freq PRN Reason Stop Dose Admin Acetaminophen 650 mg 04/02/22 23:53 05/04/22 21:37 Acetaminophen 325 Mg Tab PO 650 mg Q6H PRN Administration Pain MILD(1-3)/Fever >100.5/FAITH Acetylcysteine 200 mg 05/04/22 20:00 05/08/22 07:56 Acetylcysteine 20% 200 Mg/1 Ml *For Inhalation Use* INHALATION 200 mg Q12HRT SEGUNDO Administration Albuterol 2.5 mg 05/05/22 20:00 05/08/22 07:56 Albuterol 2.5 Mg/3 Ml Nebu IH 2.5 mg Q12HRT SEGUNDO Administration Bisacodyl 10 mg 04/07/22 09:44 04/12/22 10:06 Bisacodyl 10 Mg Rect Supp MN 10 mg QDAY PRN Administration Constipation Docusate Sodium 100 mg 04/28/22 10:00 05/08/22 10:56 Docusate Sodium 100 Mg/10 Ml Oral Liqd FEEDTUBE Not Given BID SEGUNDO Famotidine 20 mg 04/06/22 10:00 05/08/22 09:33 Famotidine 20 Mg Tab FEEDTUBE 20 mg BID SEGUNDO Administration Fentanyl 50 mcg 04/04/22 15:56 05/07/22 22:15 Fentanyl 100 Mcg/2 Ml Inj IV 50 mcg Q2HR PRN Administration For CPOT of greater than 3 Heparin Sodium (Porcine) 5,000 unit 04/03/22 06:00 05/08/22 14:09 Heparin 5,000 Unit/1 Ml Vial SUB-Q 5,000 unit Q8HR SEGUNDO Administration Insulin Human Lispro 0 unit 05/05/22 06:00 05/08/22 14:09 Insulin Lispro 100 Unit/Ml SUB-Q Not Given Q8HR [facility] Protocol Magnesium Hydroxide 30 ml 04/02/22 23:53 Magnesium Hydroxide (Mom) Oral Liqd Udc PO Q4H PRN Constipation Metoprolol Tartrate 12.5 mg 05/03/22 13:00 05/08/22 13:35 Metoprolol Tartrate 25 Mg Tab FEEDTUBE Not Given Q6HR SEGUNDO Ondansetron HCl 4 mg 04/02/22 23:53 Ondansetron 4 Mg/2 Ml Inj IV Q8H PRN Nausea And Vomiting Polyethylene Glycol 17 gm 04/08/22 10:00 05/08/22 10:56 Polyethylene Glycol 3350 17 Gm Powder PO Not Given QDAY SEGUNDO Quetiapine Fumarate 50 mg 04/28/22 10:00 05/08/22 09:33 Quetiapine 25 Mg Tab FEEDTUBE 50 mg BID SEGUNDO Administration Senna 17.6 mg 04/28/22 10:00 05/08/22 10:56 Sennosides Oral Liqd 8.8 Mg/5 Ml Oral Liqd FEEDTUBE Not Given Q12HR SEGUNDO Sodium Chloride 10 ml 04/03/22 10:00 05/08/22 09:33 Sodium Chloride 0.9% 10 Ml Flush Syringe IV 10 ml BID SEGUNDO Administration Sodium Chloride 10 ml 04/02/22 23:53 Sodium Chloride 0.9% 10 Ml Flush Syringe IV PRN PRN LINE FLUSH Nutrition/Malnutrition Assess - Dietary Evaluation Nutrition/Malnutrition Findings: Nutrition Notes Start: 04/04/22 13:13 Freq: Status: Active Protocol: Document 05/04/22 12:27 COLLEEN (Rec: 05/04/22 12:46 COLLEEN [email or web address]) Nutrition Notes Initial or Follow up Reassessment Current Diagnosis Coronary Artery Disease, Decubitus(Pressure Ulcer), Sepsis,Respiratory Failure, Malnutrition Other Pertinent Diagnosis HCAP, ALS, Broncopneumonia, NSTEMI, Cardiomyopathy, ... Current Diet TF-Vital AF 1.2 Inderjit @ 50 ml/hr (since D 04/15). Labs/Tests 05/03: Na 134, Cl 90.5, CO2 38 , BUN 21, Crea <0.2, Glu 126. Pertinent Medications 05/04: Nutritionally unremarkable. Height 5 ft 4.8 in Weight 46.8 kg [place] Body Weight (kg) 61.27 BMI 17.2 Weight change and time frame No body weight change reported in 4 weeks. Weight Status Underweight Subjective/Other Information RD consult for routine F/U on TF tolerance/continuation. TF continues as prescribed, and well tolerated, according to RN notes. Pt continues on Mechanical ventilation, O2 saturation @ 96%, according to Physical Assessment Histroy notes. Pt will be discharged home with family; awaiting home- Vent setup; family declined SNF placement, according to Progress notes. Percent of energy/protein needs met: Prescribed TF-Vital AF 1.2 Inderjit @ 50 ml/hr provides for energy/protein needs (1,450 Kcal/91 g) during LOS, 98% Kcal; 100% AA. Burn Absent Trauma Absent GI Symptoms Constipation Difficulty In Swallowing,Chewing Food Allergy No Skin Integrity/Comment Sacral open wound. Current % PO Other Minimum of two criteria No #1 Nutrition Diagnosis Inadequate oral intake Diagnosis Progress(for reassessment Continues documentation) Is patient on ventilator? Yes Is Patient Ambulatory and/or Out of Bed No REE-([facility]-confined to bed) [phone] Calculation Used for Recommendations [facility] Additional Notes Protein: 1.2-2 g/Kg IBW; 73- 122 g/day. Fluids: 1 ml/Kcal, or as per MD. Nutrition Intervention Nutrition Support: Continue TF-Vital AF 1.2 Inderjit @ 50 ml/hr. Flush: 80 ml water Q 4 hr, or as per MD. Kcal 1,450 Protein (gm) 91 Carbohydrates (gm) 134 Fat (gm) 65 Fluid (mL) 980 Fiber (gm) 6 % RDI: 98% Kcal; 100% AA. Goal #1 Provide at least 75% of energy /protein needs through Enteral Feeding during LOS. Follow-Up By: 05/11/22 Additional Comments Continue monitoring TF tolerance and BM.
--- NOTE | 2022-05-06 13:59 | Progress Note ---
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 Protein calorie malnutrition Acute Bronchopneumonia HCAP Hypotension NSTEMI Hypernatremia Acute Metabolic Encephalopathy H/o Amyotrophic Lateral Sclerosis Nonverbal at Baseline Thrombocytopenia Protein Caloric Malnutrition Constipation - continue family ventilator training - continue daily SAT and SBT assessment as tolerated meanwhile - follow routine labs and address - optimize nutritional status - continue care as below otherwise; - bronchoscopy if develops large volume atelectasis - continue mucomyst nebs for thick tenacious secretions - continue scheduled CPT - continue Seroquel for anxiolysis / delirium - continue bronchodilators with pulmonary hygiene per RT - continue to wean supplemental oxygen for target O2 sat's > 90% acutely - VAP bundle addressed - continue lung protective strategies - wean per pulmonary driven protocols otherwise - continue accuchecks with glycemic control per SSI (While critically ill target blood glucose of 140-180 mg/dL; avoid hypoglycemia) - sedation prn for target RASS 0 to -1 - avoid nephrotoxins, renally dose all medications - continue to avoid benzodiazepine's, reduce the possibility of delirium - AB's per ID rec's - prn analgesia per CPOT score - Maintenance of sleep-wake cycle, avoid delirium - continue enteral nutritional support at goal rate as tolerated - G.I. & VTE prophylaxis - PT/OT/ROM exercises - continue mobility protocols for pressure ulcer prophylaxis - Monitor hemodynamics closely - continue other care per attending / other consultants - discharge planning ongoing concurrently COVID SPECIFIC INTERVENTIONS - test pending .... Re-evaluate in am & prn CONDITION: CRITICAL PROGNOSIS: GUARDED CODE STATUS: FULL CODE The high probability of a clinically significant, sudden or life-threatening deterioration of the [respiratory, cardiovascular & neurologic] system(s) required my full and direct attention, intervention and personal management. The aggregate critical care time was [34] minutes without overlap. Time includes spent on; [x] Data Review and interpretation [x] Patient assessment and monitoring of vital signs [x] Documentation [x] Medication orders and management Subjective Date of service: 05/06/22 Principal diagnosis: Ac and ch hypercapnic and hypoxemic Resp Failure; ALS; HCAP; Sepsis; NSTEMI Interval history: Patient is seen today for: Acute and chronic hypercapnic and hypoxemic Respiratory Failure; ALS; HCAP; Sepsis; NSTEMI; AMS; Hypernatremia; Thrombocytopenia; Protein Caloric Malnutrition; Constipation Seen and examined at bedside; 24hour events reviewed; nursing and respiratory care staff consulted; no adverse overnight events reported to me; resting peacefully in bed; remains on MVS; discharge plan is home wioth MVS and family training is ongoing; mo emesis or overt aspiration; continues to fail SBT's Objective Vital Signs - 12hr 05/06/22 05/06/22 05/06/22 02:00 03:00 03:36 Temperature 100.5 F H Pulse Rate 108 H 109 H Pulse Rate [ Anterior Bilateral Throughout] Pulse Rate [ Bilateral Throughout] Pulse Rate [ From Monitor] Respiratory 27 H 33 H Rate Respiratory Rate [Anterior Bilateral Throughout] Respiratory Rate [Bilateral Throughout] Blood Pressure 95/51 89/50 O2 Sat by Pulse 99 99 Oximetry O2 Sat by Pulse Oximetry [ Assessment] 05/06/22 05/06/22 05/06/22 04:00 04:15 05:00 Temperature Pulse Rate 111 H 123 H 117 H Pulse Rate [ Anterior Bilateral Throughout] Pulse Rate [ Bilateral Throughout] Pulse Rate [ 113 H From Monitor] Respiratory 15 16 Rate Respiratory Rate [Anterior Bilateral Throughout] Respiratory Rate [Bilateral Throughout] Blood Pressure 87/53 101/62 101/62 O2 Sat by Pulse 99 98 96 Oximetry O2 Sat by Pulse Oximetry [ Assessment] 05/06/22 05/06/22 05/06/22 06:00 06:20 07:00 Temperature Pulse Rate 132 H 133 H 125 H Pulse Rate [ Anterior Bilateral Throughout] Pulse Rate [ Bilateral Throughout] Pulse Rate [ From Monitor] Respiratory 30 H 30 H Rate Respiratory Rate [Anterior Bilateral Throughout] Respiratory Rate [Bilateral Throughout] Blood Pressure 120/76 120/76 106/61 O2 Sat by Pulse 93 95 Oximetry O2 Sat by Pulse Oximetry [ Assessment] 05/06/22 05/06/22 05/06/22 07:57 08:00 08:03 Temperature 100.9 F H Pulse Rate 123 H Pulse Rate [ 125 H Anterior Bilateral Throughout] Pulse Rate [ 123 H Bilateral Throughout] Pulse Rate [ From Monitor] Respiratory 36 H Rate Respiratory 16 Rate [Anterior Bilateral Throughout] Respiratory 16 Rate [Bilateral Throughout] Blood Pressure 113/69 O2 Sat by Pulse 97 Oximetry O2 Sat by Pulse 100 Oximetry [ Assessment] 05/06/22 05/06/22 05/06/22 08:10 09:00 11:43 Temperature 100.4 F H Pulse Rate 125 H Pulse Rate [ Anterior Bilateral Throughout] Pulse Rate [ Bilateral Throughout] Pulse Rate [ From Monitor] Respiratory 19 Rate Respiratory Rate [Anterior Bilateral Throughout] Respiratory Rate [Bilateral Throughout] Blood Pressure 105/61 O2 Sat by Pulse 94 97 Oximetry O2 Sat by Pulse Oximetry [ Assessment] 05/06/22 05/06/22 11:48 13:04 Temperature Pulse Rate 124 H 125 H Pulse Rate [ Anterior Bilateral Throughout] Pulse Rate [ Bilateral Throughout] Pulse Rate [ From Monitor] Respiratory Rate Respiratory Rate [Anterior Bilateral Throughout] Respiratory Rate [Bilateral Throughout] Blood Pressure 108/62 108/63 O2 Sat by Pulse 97 Oximetry O2 Sat by Pulse Oximetry [ Assessment] Constitutional: no acute distress, alert, other (resting in bed with mildly increased respiratory effort at rest) Eyes: non-icteric ENT: oropharynx moist, other (+ midline tracheostomy) Neck: supple, no lymphadenopathy, no JVD Effort: mildly labored Ascultation: Bilateral: diminished breath sounds (bases), rhonchi Percussion: Bilateral: not dull Cardiovascular: regular rate and rhythm, other (S1,S2) Gastrointestinal: normoactive bowel sounds, soft, non-tender, non-distended Integumentary: normal Extremities: no cyanosis, no edema, pink and warm, pulses normal Neurologic: pupils equal and round, other (functional quadriplegia) Psychiatric: anxious (affect), other CBC and BMP: 05/05/22 04:23 05/05/22 04:23 ABG, PT/INR, D-dimer: ABG ABG pH 7.383 pH Units (7.350-7.450) 05/04/22 09:36 ABG pCO2 75.0 mm Hg 05/04/22 09:36 ABG pO2 55.4 mm Hg (80.0-90.0) L 05/04/22 09:36 ABG O2 Saturation 87.4 % (95.0-99.0) L 05/04/22 09:36 PT/INR, D-dimer PT 13.6 Sec. (12.2-14.9) 04/13/22 04:30 INR 0.94 (0.87-1.13) 04/13/22 04:30 Abnormal lab findings: Abnormal Labs 04/02/22 04/02/22 04/02/22 19:39 19:39 19:39 WBC 14.3 H RBC Hgb Hct MCV 96 H Plt Count 104 L Lymph % (Auto) [place] % (Auto) Lymph # (Auto) [place] # (Auto) Seg Neutrophils % Seg Neuts % (Manual) 94.0 H Lymphocytes % (Manual) 1.0 L Seg Neutrophils # Seg Neutrophils # Man 13.4 H Lymphocytes # (Manual) 0.1 L PT 15.9 H INR 1.14 H ABG pH ABG pO2 ABG HCO3 ABG O2 Saturation ABG Base Excess ABG Hemoglobin Oxyhemoglobin Sodium 151 H Potassium Chloride Carbon Dioxide BUN Creatinine 0.5 L Glucose POC Glucose Calcium 8.2 L Phosphorus Magnesium 1.60 L Total Creatine Kinase CK-MB (CK-2) Rel Index Troponin T 0.048 H C-Reactive Protein Total Protein 4.6 L Albumin 2.7 L LDL Cholesterol Direct 27 L Urine WBC (Auto) 04/02/22 04/03/22 04/03/22 19:42 05:14 06:30 WBC RBC Hgb Hct MCV Plt Count Lymph % (Auto) [place] % (Auto) Lymph # (Auto) [place] # (Auto) Seg Neutrophils % Seg Neuts % (Manual) Lymphocytes % (Manual) Seg Neutrophils # Seg Neutrophils # Man Lymphocytes # (Manual) PT INR ABG pH 7.471 H 7.496 H ABG pO2 47.8 L 91.0 H ABG HCO3 30.6 H ABG O2 Saturation 94.4 L ABG Base Excess 6.2 H ABG Hemoglobin 11.0 L 12.8 L Oxyhemoglobin 93.1 L Sodium 149 H Potassium 3.4 L Chloride Carbon Dioxide BUN Creatinine 0.4 L Glucose POC Glucose Calcium Phosphorus Magnesium Total Creatine Kinase CK-MB (CK-2) Rel Index Troponin T C-Reactive Protein Total Protein Albumin LDL Cholesterol Direct Urine WBC (Auto) 04/04/22 04/04/22 04/04/22 04:18 04:18 05:50 WBC 11.8 H RBC Hgb Hct MCV Plt Count 132 L Lymph % (Auto) [place] % (Auto) Lymph # (Auto) [place] # (Auto) Seg Neutrophils % Seg Neuts % (Manual) Lymphocytes % (Manual) Seg Neutrophils # Seg Neutrophils # Man Lymphocytes # (Manual) PT INR ABG pH 7.517 H ABG pO2 115.5 H ABG HCO3 29.9 H ABG O2 Saturation ABG Base Excess 6.7 H ABG Hemoglobin 12.3 L Oxyhemoglobin Sodium Potassium 3.5 L Chloride Carbon Dioxide 31 H BUN Creatinine 0.3 L Glucose 153 H POC Glucose Calcium Phosphorus 1.40 L Magnesium 1.50 L Total Creatine Kinase CK-MB (CK-2) Rel Index Troponin T C-Reactive Protein 31.60 H Total Protein Albumin LDL Cholesterol Direct Urine WBC (Auto) 04/05/22 04/05/22 04/05/22 02:50 05:25 11:28 WBC RBC Hgb Hct MCV Plt Count Lymph % (Auto) [place] % (Auto) Lymph # (Auto) [place] # (Auto) Seg Neutrophils % Seg Neuts % (Manual) Lymphocytes % (Manual) Seg Neutrophils # Seg Neutrophils # Man Lymphocytes # (Manual) PT INR ABG pH 7.455 H ABG pO2 50.7 L ABG HCO3 30.5 H ABG O2 Saturation 89.4 L ABG Base Excess 5.9 H ABG Hemoglobin 11.8 L Oxyhemoglobin 88.2 L Sodium Potassium Chloride Carbon Dioxide 32 H BUN Creatinine 0.2 L Glucose 110 H POC Glucose 124 H Calcium 7.9 L Phosphorus Magnesium Total Creatine Kinase CK-MB (CK-2) Rel Index Troponin T C-Reactive Protein Total Protein Albumin LDL Cholesterol Direct Urine WBC (Auto) 04/05/22 04/05/22 04/06/22 17:45 Unknown 04:00 WBC RBC 3.55 L Hgb 11.1 L 11.5 L Hct 33.2 L 35.1 L MCV Plt Count 113 L 114 L Lymph % (Auto) [place] % (Auto) Lymph # (Auto) [place] # (Auto) Seg Neutrophils % Seg Neuts % (Manual) Lymphocytes % (Manual) Seg Neutrophils # Seg Neutrophils # Man Lymphocytes # (Manual) PT INR ABG pH ABG pO2 ABG HCO3 ABG O2 Saturation ABG Base Excess ABG Hemoglobin Oxyhemoglobin Sodium Potassium Chloride Carbon Dioxide BUN Creatinine Glucose POC Glucose Calcium Phosphorus Magnesium Total Creatine Kinase CK-MB (CK-2) Rel Index Troponin T C-Reactive Protein Total Protein Albumin LDL Cholesterol Direct Urine WBC (Auto) 8.0 H 04/06/22 04/06/22 04/07/22 04:00 08:30 00:04 WBC RBC Hgb Hct MCV Plt Count Lymph % (Auto) [place] % (Auto) Lymph # (Auto) [place] # (Auto) Seg Neutrophils % Seg Neuts % (Manual) Lymphocytes % (Manual) Seg Neutrophils # Seg Neutrophils # Man Lymphocytes # (Manual) PT INR ABG pH ABG pO2 60.8 L ABG HCO3 30.5 H ABG O2 Saturation 93.3 L ABG Base Excess 4.9 H ABG Hemoglobin 12.4 L Oxyhemoglobin 92.1 L Sodium Potassium 3.0 L Chloride Carbon Dioxide BUN Creatinine < 0.2 L Glucose 130 H POC Glucose 117 H Calcium 8.1 L Phosphorus Magnesium Total Creatine Kinase CK-MB (CK-2) Rel Index Troponin T C-Reactive Protein Total Protein Albumin LDL Cholesterol Direct Urine WBC (Auto) 04/07/22 04/07/22 04/07/22 03:51 03:51 03:51 WBC 14.6 H RBC 3.57 L Hgb 11.1 L Hct 33.2 L MCV Plt Count 118 L Lymph % (Auto) 4.3 L [place] % (Auto) 8.8 H Lymph # (Auto) 0.6 L [place] # (Auto) 1.3 H Seg Neutrophils % 86.6 H Seg Neuts % (Manual) Lymphocytes % (Manual) Seg Neutrophils # 12.7 H Seg Neutrophils # Man Lymphocytes # (Manual) PT 15.2 H INR ABG pH ABG pO2 ABG HCO3 ABG O2 Saturation ABG Base Excess ABG Hemoglobin Oxyhemoglobin Sodium 133 L Potassium Chloride 96.0 L Carbon Dioxide 31 H BUN Creatinine 0.2 L Glucose 130 H POC Glucose Calcium 8.0 L Phosphorus Magnesium Total Creatine Kinase CK-MB (CK-2) Rel Index Troponin T C-Reactive Protein Total Protein Albumin LDL Cholesterol Direct Urine WBC (Auto) 04/07/22 04/07/22 04/08/22 04:25 09:10 04:49 WBC 16.1 H RBC 3.54 L Hgb 10.9 L Hct 33.3 L MCV Plt Count Lymph % (Auto) [place] % (Auto) Lymph # (Auto) [place] # (Auto) Seg Neutrophils % Seg Neuts % (Manual) Lymphocytes % (Manual) Seg Neutrophils # Seg Neutrophils # Man Lymphocytes # (Manual) PT INR ABG pH ABG pO2 71.0 L 63.4 L ABG HCO3 31.5 H 40.0 H ABG O2 Saturation 94.9 L ABG Base Excess 5.9 H 13.6 H ABG Hemoglobin 11.3 L 9.0 L Oxyhemoglobin 93.6 L Sodium Potassium Chloride Carbon Dioxide BUN Creatinine Glucose POC Glucose Calcium Phosphorus Magnesium Total Creatine Kinase CK-MB (CK-2) Rel Index Troponin T C-Reactive Protein Total Protein Albumin LDL Cholesterol Direct Urine WBC (Auto) 04/08/22 04/08/22 04/08/22 04:49 09:53 10:25 WBC RBC Hgb Hct MCV Plt Count Lymph % (Auto) [place] % (Auto) Lymph # (Auto) [place] # (Auto) Seg Neutrophils % Seg Neuts % (Manual) Lymphocytes % (Manual) Seg Neutrophils # Seg Neutrophils # Man Lymphocytes # (Manual) PT INR ABG pH ABG pO2 ABG HCO3 34.7 H ABG O2 Saturation ABG Base Excess 7.9 H ABG Hemoglobin 11.0 L Oxyhemoglobin Sodium 136 L Potassium Chloride 97.7 L Carbon Dioxide 33 H BUN Creatinine 0.2 L Glucose 155 H POC Glucose Calcium Phosphorus Magnesium Total Creatine Kinase CK-MB (CK-2) Rel Index Troponin T 0.030 H C-Reactive Protein Total Protein Albumin LDL Cholesterol Direct Urine WBC (Auto) 04/08/22 04/08/22 04/08/22 11:19 17:47 18:06 WBC RBC Hgb Hct MCV Plt Count Lymph % (Auto) [place] % (Auto) Lymph # (Auto) [place] # (Auto) Seg Neutrophils % Seg Neuts % (Manual) Lymphocytes % (Manual) Seg Neutrophils # Seg Neutrophils # Man Lymphocytes # (Manual) PT INR ABG pH ABG pO2 ABG HCO3 ABG O2 Saturation ABG Base Excess ABG Hemoglobin Oxyhemoglobin Sodium Potassium Chloride Carbon Dioxide BUN Creatinine Glucose POC Glucose 121 H Calcium Phosphorus Magnesium Total Creatine Kinase 31 L 46 L CK-MB (CK-2) Rel Index 6.4 H 5.6 H Troponin T 0.030 H 0.031 H C-Reactive Protein Total Protein Albumin LDL Cholesterol Direct Urine WBC (Auto) 04/09/22 04/09/22 04/09/22 04:35 04:35 11:24 WBC 11.5 H RBC 3.16 L Hgb 9.9 L Hct 29.4 L MCV Plt Count 131 L Lymph % (Auto) [place] % (Auto) Lymph # (Auto) [place] # (Auto) Seg Neutrophils % Seg Neuts % (Manual) Lymphocytes % (Manual) Seg Neutrophils # Seg Neutrophils # Man Lymphocytes # (Manual) PT INR ABG pH ABG pO2 ABG HCO3 ABG O2 Saturation ABG Base Excess ABG Hemoglobin Oxyhemoglobin Sodium Potassium Chloride 97.1 L Carbon Dioxide 35 H BUN Creatinine < 0.2 L Glucose 145 H POC Glucose 147 H Calcium Phosphorus Magnesium Total Creatine Kinase CK-MB (CK-2) Rel Index Troponin T C-Reactive Protein Total Protein Albumin LDL Cholesterol Direct Urine WBC (Auto) 04/09/22 04/09/22 04/09/22 13:00 17:32 23:48 WBC RBC Hgb Hct MCV Plt Count Lymph % (Auto) [place] % (Auto) Lymph # (Auto) [place] # (Auto) Seg Neutrophils % Seg Neuts % (Manual) Lymphocytes % (Manual) Seg Neutrophils # Seg Neutrophils # Man Lymphocytes # (Manual) PT INR ABG pH ABG pO2 66.6 L ABG HCO3 38.2 H ABG O2 Saturation 94.4 L ABG Base Excess 10.7 H ABG Hemoglobin 10.7 L Oxyhemoglobin 92.8 L Sodium Potassium Chloride Carbon Dioxide BUN Creatinine Glucose POC Glucose 143 H 114 H Calcium Phosphorus Magnesium Total Creatine Kinase CK-MB (CK-2) Rel Index Troponin T C-Reactive Protein Total Protein Albumin LDL Cholesterol Direct Urine WBC (Auto) 04/10/22 04/10/22 04/10/22 04:48 04:48 05:34 WBC RBC 2.91 L Hgb 9.1 L Hct 27.7 L MCV 95 H Plt Count Lymph % (Auto) [place] % (Auto) Lymph # (Auto) [place] # (Auto) Seg Neutrophils % Seg Neuts % (Manual) Lymphocytes % (Manual) Seg Neutrophils # Seg Neutrophils # Man Lymphocytes # (Manual) PT INR ABG pH ABG pO2 ABG HCO3 ABG O2 Saturation ABG Base Excess ABG Hemoglobin Oxyhemoglobin Sodium Potassium Chloride 95.7 L Carbon Dioxide 38 H BUN Creatinine < 0.2 L Glucose 118 H POC Glucose 127 H Calcium Phosphorus Magnesium Total Creatine Kinase CK-MB (CK-2) Rel Index Troponin T C-Reactive Protein Total Protein Albumin LDL Cholesterol Direct Urine WBC (Auto) 04/10/22 04/11/22 04/11/22 23:10 04:15 04:15 WBC 17.2 H RBC 2.98 L Hgb 9.2 L Hct 27.9 L MCV Plt Count Lymph % (Auto) [place] % (Auto) Lymph # (Auto) [place] # (Auto) Seg Neutrophils % Seg Neuts % (Manual) Lymphocytes % (Manual) Seg Neutrophils # Seg Neutrophils # Man Lymphocytes # (Manual) PT INR ABG pH ABG pO2 ABG HCO3 ABG O2 Saturation ABG Base Excess ABG Hemoglobin Oxyhemoglobin Sodium Potassium Chloride 96.1 L Carbon Dioxide 35 H BUN Creatinine < 0.2 L Glucose 138 H POC Glucose 106 H Calcium 8.3 L Phosphorus Magnesium Total Creatine Kinase CK-MB (CK-2) Rel Index Troponin T C-Reactive Protein Total Protein Albumin LDL Cholesterol Direct Urine WBC (Auto) 04/11/22 04/11/22 04/11/22 05:31 13:18 16:20 WBC RBC Hgb Hct MCV Plt Count Lymph % (Auto) [place] % (Auto) Lymph # (Auto) [place] # (Auto) Seg Neutrophils % Seg Neuts % (Manual) Lymphocytes % (Manual) Seg Neutrophils # Seg Neutrophils # Man Lymphocytes # (Manual) PT INR ABG pH ABG pO2 57.8 L ABG HCO3 40.5 H ABG O2 Saturation 90.6 L ABG Base Excess 12.6 H ABG Hemoglobin 10.5 L Oxyhemoglobin 89.0 L Sodium Potassium Chloride Carbon Dioxide BUN Creatinine Glucose POC Glucose 129 H 132 H Calcium Phosphorus Magnesium Total Creatine Kinase CK-MB (CK-2) Rel Index Troponin T C-Reactive Protein Total Protein Albumin LDL Cholesterol Direct Urine WBC (Auto) 04/11/22 04/11/22 04/12/22 17:29 23:17 04:00 WBC 17.4 H RBC 2.96 L Hgb 9.0 L Hct 28.0 L MCV 95 H Plt Count Lymph % (Auto) [place] % (Auto) Lymph # (Auto) [place] # (Auto) Seg Neutrophils % Seg Neuts % (Manual) Lymphocytes % (Manual) Seg Neutrophils # Seg Neutrophils # Man Lymphocytes # (Manual) PT INR ABG pH ABG pO2 ABG HCO3 ABG O2 Saturation ABG Base Excess ABG Hemoglobin Oxyhemoglobin Sodium Potassium Chloride Carbon Dioxide BUN Creatinine Glucose POC Glucose 125 H 151 H Calcium Phosphorus Magnesium Total Creatine Kinase CK-MB (CK-2) Rel Index Troponin T C-Reactive Protein Total Protein Albumin LDL Cholesterol Direct Urine WBC (Auto) 04/12/22 04/12/22 04/12/22 04:00 17:03 23:39 WBC RBC Hgb Hct MCV Plt Count Lymph % (Auto) [place] % (Auto) Lymph # (Auto) [place] # (Auto) Seg Neutrophils % Seg Neuts % (Manual) Lymphocytes % (Manual) Seg Neutrophils # Seg Neutrophils # Man Lymphocytes # (Manual) PT INR ABG pH ABG pO2 ABG HCO3 ABG O2 Saturation ABG Base Excess ABG Hemoglobin Oxyhemoglobin Sodium Potassium Chloride 97.4 L Carbon Dioxide 37 H BUN Creatinine < 0.2 L Glucose 127 H POC Glucose 106 H 107 H Calcium Phosphorus Magnesium Total Creatine Kinase CK-MB (CK-2) Rel Index Troponin T C-Reactive Protein Total Protein Albumin LDL Cholesterol Direct Urine WBC (Auto) 04/13/22 04/13/22 04/13/22 04:30 04:30 17:39 WBC 14.1 H RBC 2.66 L Hgb 8.4 L Hct 25.5 L MCV 96 H Plt Count Lymph % (Auto) [place] % (Auto) Lymph # (Auto) [place] # (Auto) Seg Neutrophils % Seg Neuts % (Manual) Lymphocytes % (Manual) Seg Neutrophils # Seg Neutrophils # Man Lymphocytes # (Manual) PT INR ABG pH ABG pO2 ABG HCO3 ABG O2 Saturation ABG Base Excess ABG Hemoglobin Oxyhemoglobin Sodium Potassium Chloride 93.9 L Carbon Dioxide 39 H BUN Creatinine < 0.2 L Glucose POC Glucose 134 H Calcium Phosphorus 1.90 L Magnesium Total Creatine Kinase CK-MB (CK-2) Rel Index Troponin T C-Reactive Protein Total Protein Albumin LDL Cholesterol Direct Urine WBC (Auto) 04/14/22 04/14/22 04/14/22 05:03 05:03 09:10 WBC 15.6 H RBC 3.02 L Hgb 9.3 L Hct 28.8 L MCV 95 H Plt Count Lymph % (Auto) [place] % (Auto) Lymph # (Auto) [place] # (Auto) Seg Neutrophils % Seg Neuts % (Manual) Lymphocytes % (Manual) Seg Neutrophils # Seg Neutrophils # Man Lymphocytes # (Manual) PT INR ABG pH ABG pO2 66.9 L ABG HCO3 44.5 H ABG O2 Saturation ABG Base Excess 17.2 H ABG Hemoglobin 8.1 L Oxyhemoglobin 94.8 L Sodium Potassium Chloride 93.8 L Carbon Dioxide 42 H* BUN Creatinine < 0.2 L Glucose 117 H POC Glucose Calcium Phosphorus Magnesium Total Creatine Kinase CK-MB (CK-2) Rel Index Troponin T C-Reactive Protein Total Protein Albumin LDL Cholesterol Direct Urine WBC (Auto) 04/15/22 04/15/22 04/16/22 04:44 04:44 04:16 WBC 13.0 H 12.6 H RBC 3.19 L 3.09 L Hgb 9.6 L 9.5 L Hct 30.2 L 29.1 L MCV 95 H Plt Count 456 H Lymph % (Auto) [place] % (Auto) Lymph # (Auto) [place] # (Auto) Seg Neutrophils % Seg Neuts % (Manual) Lymphocytes % (Manual) Seg Neutrophils # Seg Neutrophils # Man Lymphocytes # (Manual) PT INR ABG pH ABG pO2 ABG HCO3 ABG O2 Saturation ABG Base Excess ABG Hemoglobin Oxyhemoglobin Sodium Potassium Chloride 95.5 L Carbon Dioxide 37 H BUN Creatinine < 0.2 L Glucose POC Glucose Calcium Phosphorus Magnesium Total Creatine Kinase CK-MB (CK-2) Rel Index Troponin T C-Reactive Protein Total Protein Albumin LDL Cholesterol Direct Urine WBC (Auto) 04/16/22 04/16/22 04/16/22 04:16 05:00 14:00 WBC RBC Hgb Hct MCV Plt Count Lymph % (Auto) [place] % (Auto) Lymph # (Auto) [place] # (Auto) Seg Neutrophils % Seg Neuts % (Manual) Lymphocytes % (Manual) Seg Neutrophils # Seg Neutrophils # Man Lymphocytes # (Manual) PT INR ABG pH 7.324 L ABG pO2 55.6 L ABG HCO3 45.3 H ABG O2 Saturation 87.1 L ABG Base Excess 16.6 H ABG Hemoglobin 8.6 L Oxyhemoglobin 85.7 L Sodium Potassium Chloride 97.6 L Carbon Dioxide 36 H BUN Creatinine < 0.2 L Glucose 109 H POC Glucose 120 H Calcium Phosphorus Magnesium Total Creatine Kinase CK-MB (CK-2) Rel Index Troponin T C-Reactive Protein Total Protein Albumin LDL Cholesterol Direct Urine WBC (Auto) 04/17/22 04/17/22 04/17/22 04:36 04:36 04:57 WBC 14.4 H RBC 3.08 L Hgb 9.4 L Hct 29.0 L MCV Plt Count Lymph % (Auto) [place] % (Auto) Lymph # (Auto) [place] # (Auto) Seg Neutrophils % Seg Neuts % (Manual) Lymphocytes % (Manual) Seg Neutrophils # Seg Neutrophils # Man Lymphocytes # (Manual) PT INR ABG pH ABG pO2 ABG HCO3 ABG O2 Saturation ABG Base Excess ABG Hemoglobin Oxyhemoglobin Sodium Potassium Chloride 95.9 L Carbon Dioxide 39 H BUN Creatinine < 0.2 L Glucose 140 H POC Glucose 137 H Calcium 8.3 L Phosphorus Magnesium Total Creatine Kinase CK-MB (CK-2) Rel Index Troponin T C-Reactive Protein Total Protein Albumin LDL Cholesterol Direct Urine WBC (Auto) 04/17/22 04/17/22 04/18/22 09:15 18:01 04:20 WBC 11.2 H RBC 3.00 L Hgb 9.3 L Hct 28.6 L MCV 95 H Plt Count Lymph % (Auto) [place] % (Auto) Lymph # (Auto) [place] # (Auto) Seg Neutrophils % Seg Neuts % (Manual) Lymphocytes % (Manual) Seg Neutrophils # Seg Neutrophils # Man Lymphocytes # (Manual) PT INR ABG pH 7.345 L ABG pO2 ABG HCO3 48.2 H ABG O2 Saturation ABG Base Excess 19.2 H ABG Hemoglobin 9.7 L Oxyhemoglobin Sodium Potassium Chloride Carbon Dioxide BUN Creatinine Glucose POC Glucose 129 H Calcium Phosphorus Magnesium Total Creatine Kinase CK-MB (CK-2) Rel Index Troponin T C-Reactive Protein Total Protein Albumin LDL Cholesterol Direct Urine WBC (Auto) 04/18/22 04/18/22 04/18/22 04:20 17:35 23:50 WBC RBC Hgb Hct MCV Plt Count Lymph % (Auto) [place] % (Auto) Lymph # (Auto) [place] # (Auto) Seg Neutrophils % Seg Neuts % (Manual) Lymphocytes % (Manual) Seg Neutrophils # Seg Neutrophils # Man Lymphocytes # (Manual) PT INR ABG pH ABG pO2 ABG HCO3 ABG O2 Saturation ABG Base Excess ABG Hemoglobin Oxyhemoglobin Sodium Potassium Chloride 96.8 L Carbon Dioxide 43 H* BUN 22 H Creatinine < 0.2 L Glucose 137 H POC Glucose 128 H 123 H Calcium 8.2 L Phosphorus Magnesium Total Creatine Kinase CK-MB (CK-2) Rel Index Troponin T C-Reactive Protein Total Protein Albumin LDL Cholesterol Direct Urine WBC (Auto) 04/19/22 04/19/22 04/19/22 04:08 04:08 08:50 WBC 16.8 H RBC 3.18 L Hgb 9.8 L Hct 30.1 L MCV 95 H Plt Count Lymph % (Auto) [place] % (Auto) Lymph # (Auto) [place] # (Auto) Seg Neutrophils % Seg Neuts % (Manual) Lymphocytes % (Manual) Seg Neutrophils # Seg Neutrophils # Man Lymphocytes # (Manual) PT INR ABG pH ABG pO2 56.0 L ABG HCO3 47.1 H ABG O2 Saturation 93.3 L ABG Base Excess 20.1 H ABG Hemoglobin 8.0 L Oxyhemoglobin 91.8 L Sodium Potassium Chloride 96.2 L Carbon Dioxide 40 H BUN 24 H Creatinine < 0.2 L Glucose 125 H POC Glucose Calcium 8.3 L Phosphorus Magnesium Total Creatine Kinase CK-MB (CK-2) Rel Index Troponin T C-Reactive Protein Total Protein Albumin LDL Cholesterol Direct Urine WBC (Auto) 04/19/22 04/20/22 04/20/22 12:02 00:40 04:49 WBC 14.7 H RBC 3.36 L Hgb 10.3 L Hct 32.0 L MCV 95 H Plt Count Lymph % (Auto) [place] % (Auto) Lymph # (Auto) [place] # (Auto) Seg Neutrophils % Seg Neuts % (Manual) Lymphocytes % (Manual) Seg Neutrophils # Seg Neutrophils # Man Lymphocytes # (Manual) PT INR ABG pH ABG pO2 ABG HCO3 ABG O2 Saturation ABG Base Excess ABG Hemoglobin Oxyhemoglobin Sodium Potassium Chloride Carbon Dioxide BUN Creatinine Glucose POC Glucose 124 H 140 H Calcium Phosphorus Magnesium Total Creatine Kinase CK-MB (CK-2) Rel Index Troponin T C-Reactive Protein Total Protein Albumin LDL Cholesterol Direct Urine WBC (Auto) 04/20/22 04/20/22 04/21/22 05:36 11:40 04:05 WBC RBC Hgb Hct MCV Plt Count Lymph % (Auto) [place] % (Auto) Lymph # (Auto) [place] # (Auto) Seg Neutrophils % Seg Neuts % (Manual) Lymphocytes % (Manual) Seg Neutrophils # Seg Neutrophils # Man Lymphocytes # (Manual) PT INR ABG pH ABG pO2 ABG HCO3 ABG O2 Saturation ABG Base Excess ABG Hemoglobin Oxyhemoglobin Sodium Potassium Chloride 93.4 L Carbon Dioxide 40 H BUN 25 H Creatinine < 0.2 L Glucose 122 H POC Glucose 125 H 128 H Calcium Phosphorus Magnesium Total Creatine Kinase CK-MB (CK-2) Rel Index Troponin T C-Reactive Protein Total Protein Albumin LDL Cholesterol Direct Urine WBC (Auto) 04/21/22 04/22/22 04/22/22 10:31 05:03 05:03 WBC 12.6 H 12.7 H RBC 2.83 L 2.96 L Hgb 8.6 L 9.0 L Hct 26.9 L 28.0 L MCV 95 H 95 H Plt Count Lymph % (Auto) [place] % (Auto) Lymph # (Auto) [place] # (Auto) Seg Neutrophils % Seg Neuts % (Manual) Lymphocytes % (Manual) Seg Neutrophils # Seg Neutrophils # Man Lymphocytes # (Manual) PT INR ABG pH ABG pO2 ABG HCO3 ABG O2 Saturation ABG Base Excess ABG Hemoglobin Oxyhemoglobin Sodium Potassium Chloride 93.9 L Carbon Dioxide 43 H* BUN 23 H Creatinine < 0.2 L Glucose 137 H POC Glucose Calcium Phosphorus Magnesium Total Creatine Kinase CK-MB (CK-2) Rel Index Troponin T C-Reactive Protein Total Protein Albumin LDL Cholesterol Direct Urine WBC (Auto) 04/22/22 04/23/22 04/24/22 08:34 09:40 04:29 WBC 14.4 H RBC 2.74 L Hgb 8.4 L Hct 25.7 L MCV Plt Count Lymph % (Auto) [place] % (Auto) Lymph # (Auto) [place] # (Auto) Seg Neutrophils % Seg Neuts % (Manual) Lymphocytes % (Manual) Seg Neutrophils # Seg Neutrophils # Man Lymphocytes # (Manual) PT INR ABG pH ABG pO2 54.1 L 56.8 L ABG HCO3 48.5 H 49.0 H ABG O2 Saturation 92.1 L 90.9 L ABG Base Excess 20.9 H 20.8 H ABG Hemoglobin 9.0 L 8.4 L Oxyhemoglobin 90.6 L 89.5 L Sodium Potassium Chloride Carbon Dioxide BUN Creatinine Glucose POC Glucose Calcium Phosphorus Magnesium Total Creatine Kinase CK-MB (CK-2) Rel Index Troponin T C-Reactive Protein Total Protein Albumin LDL Cholesterol Direct Urine WBC (Auto) 04/24/22 04/25/22 04/26/22 04:29 09:00 04:22 WBC RBC 2.88 L Hgb 8.9 L Hct 26.8 L MCV Plt Count Lymph % (Auto) [place] % (Auto) Lymph # (Auto) [place] # (Auto) Seg Neutrophils % Seg Neuts % (Manual) Lymphocytes % (Manual) Seg Neutrophils # Seg Neutrophils # Man Lymphocytes # (Manual) PT INR ABG pH 7.457 H ABG pO2 66.7 L ABG HCO3 42.6 H ABG O2 Saturation ABG Base Excess 15.3 H ABG Hemoglobin 8.8 L Oxyhemoglobin 94.1 L Sodium Potassium Chloride 90.7 L Carbon Dioxide 40 H BUN Creatinine < 0.2 L Glucose 133 H POC Glucose Calcium Phosphorus Magnesium Total Creatine Kinase CK-MB (CK-2) Rel Index Troponin T C-Reactive Protein Total Protein Albumin LDL Cholesterol Direct Urine WBC (Auto) 04/26/22 04/29/22 04/29/22 04:22 04:18 04:18 WBC 13.5 H RBC 2.96 L Hgb 8.9 L Hct 27.7 L MCV Plt Count Lymph % (Auto) [place] % (Auto) Lymph # (Auto) [place] # (Auto) Seg Neutrophils % Seg Neuts % (Manual) Lymphocytes % (Manual) Seg Neutrophils # Seg Neutrophils # Man Lymphocytes # (Manual) PT INR ABG pH ABG pO2 ABG HCO3 ABG O2 Saturation ABG Base Excess ABG Hemoglobin Oxyhemoglobin Sodium Potassium Chloride 93.2 L 95.2 L Carbon Dioxide 37 H 38 H BUN Creatinine < 0.2 L < 0.2 L Glucose 114 H 116 H POC Glucose Calcium Phosphorus Magnesium Total Creatine Kinase CK-MB (CK-2) Rel Index Troponin T C-Reactive Protein Total Protein Albumin LDL Cholesterol Direct Urine WBC (Auto) 05/02/22 05/03/22 05/03/22 04:29 04:02 04:02 WBC 12.9 H 12.3 H RBC 2.82 L 2.83 L Hgb 8.4 L 8.4 L Hct 26.2 L 26.0 L MCV Plt Count Lymph % (Auto) [place] % (Auto) Lymph # (Auto) [place] # (Auto) Seg Neutrophils % Seg Neuts % (Manual) Lymphocytes % (Manual) Seg Neutrophils # Seg Neutrophils # Man Lymphocytes # (Manual) PT INR ABG pH ABG pO2 ABG HCO3 ABG O2 Saturation ABG Base Excess ABG Hemoglobin Oxyhemoglobin Sodium 134 L Potassium Chloride 90.5 L Carbon Dioxide 38 H BUN 21 H Creatinine < 0.2 L Glucose 126 H POC Glucose Calcium Phosphorus Magnesium Total Creatine Kinase CK-MB (CK-2) Rel Index Troponin T C-Reactive Protein Total Protein Albumin LDL Cholesterol Direct Urine WBC (Auto) 05/03/22 05/03/22 05/04/22 12:02 17:42 09:36 WBC RBC Hgb Hct MCV Plt Count Lymph % (Auto) [place] % (Auto) Lymph # (Auto) [place] # (Auto) Seg Neutrophils % Seg Neuts % (Manual) Lymphocytes % (Manual) Seg Neutrophils # Seg Neutrophils # Man Lymphocytes # (Manual) PT INR ABG pH ABG pO2 55.4 L ABG HCO3 43.7 H ABG O2 Saturation 87.4 L ABG Base Excess 16.1 H ABG Hemoglobin 9.1 L Oxyhemoglobin 85.7 L Sodium Potassium Chloride Carbon Dioxide BUN Creatinine Glucose POC Glucose 139 H 131 H Calcium Phosphorus Magnesium Total Creatine Kinase CK-MB (CK-2) Rel Index Troponin T C-Reactive Protein Total Protein Albumin LDL Cholesterol Direct Urine WBC (Auto) 05/04/22 05/04/22 05/05/22 17:08 23:10 04:23 WBC 14.4 H RBC 2.75 L Hgb 8.2 L Hct 25.2 L MCV Plt Count Lymph % (Auto) [place] % (Auto) Lymph # (Auto) [place] # (Auto) Seg Neutrophils % Seg Neuts % (Manual) Lymphocytes % (Manual) Seg Neutrophils # Seg Neutrophils # Man Lymphocytes # (Manual) PT INR ABG pH ABG pO2 ABG HCO3 ABG O2 Saturation ABG Base Excess ABG Hemoglobin Oxyhemoglobin Sodium Potassium Chloride Carbon Dioxide BUN Creatinine Glucose POC Glucose 124 H 115 H Calcium Phosphorus Magnesium Total Creatine Kinase CK-MB (CK-2) Rel Index Troponin T C-Reactive Protein Total Protein Albumin LDL Cholesterol Direct Urine WBC (Auto) 05/05/22 05/05/22 05/06/22 04:23 21:39 05:13 WBC RBC Hgb Hct MCV Plt Count Lymph % (Auto) [place] % (Auto) Lymph # (Auto) [place] # (Auto) Seg Neutrophils % Seg Neuts % (Manual) Lymphocytes % (Manual) Seg Neutrophils # Seg Neutrophils # Man Lymphocytes # (Manual) PT INR ABG pH ABG pO2 ABG HCO3 ABG O2 Saturation ABG Base Excess ABG Hemoglobin Oxyhemoglobin Sodium Potassium Chloride 91.3 L Carbon Dioxide 38 H BUN 23 H Creatinine < 0.2 L Glucose 128 H POC Glucose 141 H 136 H Calcium Phosphorus Magnesium Total Creatine Kinase CK-MB (CK-2) Rel Index Troponin T C-Reactive Protein Total Protein Albumin LDL Cholesterol Direct Urine WBC (Auto) Allied health notes reviewed: nursing
[2022-05-06] MEDS ORDERED: IPRATROPIUM/ALBUTEROL SULFATE 3 ML AMPUL.NEB IH ONE (20:09)
[2022-05-06] MEDS: ACETYLCYSTEINE 20% 200 MG/1 ML *FOR INHALATION USE INHALATION SCH (21:38)
[2022-05-07] MEDS: METOPROLOL TARTRATE 25 MG TAB FEEDTUBE SCH ×5 (00:48→17:53)
[2022-05-07] MEDS: HEPARIN 5,000 UNIT/1 ML VIAL SUB-Q SCH ×3 (05:24→22:12)
[2022-05-07] MEDS: INSULIN LISPRO 100 UNIT/ML SUB-Q SCH ×3 (05:32→22:18)
--- NOTE | 2022-05-07 08:25 | Progress Note ---
Assessment and Plan Assessment and plan: History Interval history: This is a 57-year-old male with ALS who presented to the emergency department on 04/02 with complaints of altered mental status and respiratory distress he was recently discharged home from [facility] with a diagnosis of pneumonia and elevated troponins. Work-up in the emergency department revealed leukocytosis, elevated troponin and hyponatremia and CXR revealed moderate to large pleural effusion on the right. Patient was having agonal breathing in the emergency department and was intubated. Patient was admitted to the hospitalist service with consults to [facility], cardiology and infectious disease for further work-up. Hospital Course to Date: 04/03: Intubated and Sedated on versed gtt, RASS-5. CT head/brain noted with no acute intracranial abnormality. Plan to initiated precededx gtt and wean off versed for a RASS goal of 0 to -2. CT chect also reviewed, findings are most consistent with acute bronchopneumonia. Continue empiric IV Abx, vent adjustment per [facility]. ID consulted. Continue to F/U on cultures. Titrate pressor for MAP above 65. Medical records requested from [facility]. 04/04: Remains stable on the vent, easily arousable on precedex gtt, not following commands. Plan for SAT/SBT today. PRN analgesia for CPOT greater than 3. Fevers improved, cultures and procal pending. Continue current IV abx, ID also consulted. Remains on low dose pressors, titrate pressors for a MAP above 65. 04/05: Long discussion with family with use of translation phone with [facility] regarding goals of care. Family to have meeting amongst themselves and informed care team of decisions. Fentanyl drip added for respiratory distress. Remains on Precedex drip. Antibiotics per ID. Given 2L NS bolus with levophed gtt 04/06: Family discussion with Dr. Grayson for goals of care. CXR shows possible mucus plug, continue CPT as FiO2 is being able to be weaned. Potassium repleted. Weaning fentnyl gtt. 04/07: Ultrasound guided thoracentesis today scheduled, inadequate amount of pleural effusion on so not completed. Patient was started on Levophed overnight which was weaned off this morning however had to be started twice a day. Remains on fentanyl and Precedex. Cardiology discontinued BB and ACEi in setting of hypotension. 04/08: COVID-19 PCR negative. Routine EEG ordered by cardiology which showed ST changes, cardiology aware. They will continue conservative treatment. Repeat troponins 0.030 which are less than admit of 0.048. Dr. Grayson had a long discussion with with the use of dispatcher electric power today at bedside and has not made a decision regarding goals of care. Possible consult to surgery for trach/PEG early next week. Continues to require Precedex and fentanyl drip for sedation. Carvedilol/lisinopril discontinued as patient is continuously on Levophed. 04/09: No acute events reported overnight, remains on fentanyl, Precedex and Levophed drips. Dr. Grayson and Dr. Pineda updated family at bedside extensively today. Consulted surgery for trach/PEG. COVID-19 PCR negative. 04/10: Patient noted to have desaturation episodes, FiO2 increased slightly to 35%. Will add Mucomyst. Remains on fentanyl and Precedex. Off of Levophed. Surgery consulted for trach/PEG. 04/11: FiO2 increased over night likely related to hypoxia, continues on fent gtt, weaning precedex gtt as he is also on Seroquel. Will d/w [facility] re scheduled or prn oxycodone 04/12: Periods of hypoxia and tachycardia this am. Symptoms improved post deep suction and tracheal lavage, Repeat CXR noted with no significant change. Continue CPT and mucomyst. Plan for possible trach/PEG tomorrow by general surgery. 04/13: Remains stable on the vent. Patient is wake and tracking but does not follow simple commands. No report of hypoxia from overnight, continue CPT and mucomyst. Plan for track and PEG today by General Surgery. Plan for LTAC placement post procedure, case management to arrange. 04/14: VIRGILIO overnight, Trach and PEG postponed for today by general surgery. Plan for LTAC placement post procedure, case management to arrange. 04/15: S/p Trach and PEG. Up to 80% FiO2 this am, this am CXR noted suggesting possible mucus plug. D/W CCM plan for bronch today. Continue CPT and mucomyst. Plan of care thoroughly discussed with patient's and son (who translated for ) at the bedside. Per , channel worker had already discussed the risks and benefits of the procedure yesterday. She verbalized understanding and agreed with procedure and current care plan, consent signed. Okay to use PEG-tube for meds this am, resume TF once okay by general Surgery. Case management to arrange LTAC placement. 04/16: s/p Bronchocopy by CCM. FiO2 down to 60%, angela 10 this am. This am CXR with moderate improvement. Continue CPT and mucomyst, wean Fio2 as tolerated for SPO2 above 92%. Patient is tolerating TF, advance to goal as ordered. Possible LTAC placement, case management to arrange. 04/17: VIRGILIO overnight. remains stable on the vent, recent CXR and this am ABG noted. Continue CPT and mucomyst, wean Fio2 as tolerated. 04/18: Remains stable on the vent, Fio2 down to 55% and peep of 8 this am. Co ntinue to wean as tolerated, CPT, and mucomyst. Dsiposition- LTAC placement, case management to arrange. 04/19: No acute events overnight. Continue current management. 04/20: No acute events overnight, continue current management 04/21: Patient had chest ultrasound which showed trace pleural effusions, chest x-ray improved after the addition of Mucomyst yesterday. FiO2 55-65%. No acute events overnight. more interactive today. 04/22: Seroquel changed to BID, FiO2 was increased to 60%. RT increased FIO2 to 100 d/t desaturation into the 80s but was able to wean down. CCM increased PEEP and decreased FiO2. 04/23: CCM increase PEEP, no acute events reported overnight. 04/24: Spoke to RT about decreasing FiO2 as tolerated. No acute events reported overnight. Continue supportive management. 04/25: Weaning as tolerated. no acute events overnight. RT to attempt CPAP again today 04/26: VIRGILIO overnight. Patient failed PSV trial again this morning. Continue supportive management and daily PST trial. 04/27: Patient failed PSV trial again this am due to episodes of apnea. Continue daily PSV trial as tolerated. Case management to arrange LTAC placement 04/28: Remains stable. Continue daily PSV trial as tolerated. Awaiting approval for LTAC 04/29: VIRGILIO overnight. Continue daily PSV trial. Awaiting approval for LTAC, case management to arrange. 04/30: Patient continue to fail PSV trial. Per case management patient was denied for LTAC, now possible SNF placement. Case managemen to arrange. Continue supportive measures and daily PSV trial as tolerated. 05/01: VIRGILIO overnight. Continue supportive measures and daily PSV trial as tolerated. Possible SNF placement. 05/02: Continue supportive measures and daily PSV trial as tolerated. Possible SNF placement, case management to arrange 05/03: no acute events overnight, CM arranging home vent setup. Family declined SNF. 05/04: RN/RT reports thin secretions, increase in FiO2 for decreased oxygen on ABG. No acute events overnight. 05/05: Family scheduled for teaching session today at 2pm. Increase in FiO2 overnight to 45%. Awaiting vent setup for home care for ventilation secondary to tracheostomy. 05/06: No acute events reported overnight, T-max 100.9. FiO2 45%. 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, recently hospitalized at [facility] admitted for acute hypoxemic respiratory failure 2/2 pneumonia Neuro: h/o ALS -s/p precedex, fentanyl gtt -Reorientation as needed -Maintain sleep-wake cycle -As needed analgesia -CT head with no acute intracranial process -Per family patient is nonverbal at baseline but responsive -Seroquel Cardiac: Suspect ischemic coronary artery disease, h/o cardiomyopathy -Cardiology consulted, appreciate recommendations -continue conservative management -Blood pressure monitoring per protocol -s/p Vasopressor support with Levophed -Echocardiogram shows ejection fraction of 40 to 45%, mild global hypokinesis of left ventricle -Nitro patch, BB Respiratory: Acute hypoxic respiratory failure -[facility] consulted, appreciate recommendations -Intubated on 04/02 with a 7.50 ETT attempt at the lips -s/p trach on 04/14 and s/p bronch on 04/15 -A.m. vent settings: Assist-control/ PRVC TV 400, rate 14, Peep 10, FiO2 45% -See RT notes for titration -CPT and mucomyst -VAP bundle -SPO2 monitoring GI: Moderate protein calorie malnutrition -24 hours + 217 mL -PPI -Peg 04/14 -NTR consulted for tube feedings -BR: Senokot/colace, MiraLAX : Metabolic Alkalosis -Record intake and output -Renally dose medications -Avoid nephrotoxic medications -Daily weights -trend BMP ID: Sepsis, Acute Bronchopneumonia, HAP (Pseudomonas and Enterobacter tracheal aspirate), blood culture with bacillus species -Infectious disease consulted, appreciate recommendation-> signed off -Per infectious disease patient was recently admitted to [facility] but discharged home with home hospice and not giving antibiotics -04/15 Tracheal aspirate with Pseudomonas aeruginosa, Enterobacter aerogenes -04/02 blood culture with bacillus species, 04/05 blood culture NGTD -MRSA (-) -s/p cefepime for 14 days -Monitor WBC and temperature curve Endo: NAD -Avoid hypoglycemia -SSI -Accu-Cheks q 6 Heme: Leukocytosis -Heparin subq -Trend CBC -Transfuse hemoglobin less than 7 -SCDs to BLE while in bed Advance Care Planning - Disease education, care plan, diagnoses, and prognosis were discussed patient's , Carly Lopez, and patient daughter, Kaylee Warren, who translated for #[phone]. They reported that patient was following at [place] for his ALS and during recent hospitalization at [facility] they were told nothing else can be offered to patient at this time and patient was discharge home with home hospice and PO morphine. First hospice visit was on , 04/01 however, patient became unresponsive 04/02 and they brought in to the hospital. - Goal of care and code status were also addressed at that time. Family wants to wait for a couple days to see how patient respond to current treatment before making a decision. All questions and concerns were addressed at this time. Patient family acknowledged understanding and agreement with care plan. -Patient remains a FULL CODE status. -04/05: Discussion at bedside with interpreting service with Dr. Valdivia and family state they would discuss next steps amongst themselves and let healthcare team know of decisions -04/06: extensive discussion with family ( and son) with Dr. Grayson regarding goals of care -04/08: Extensive discussion with with the use of dispatcher electric power line regarding goals of care; no decision made. Possible consult to surgery for trach/PEG early next week. -04/09: Discussion with and her sister with Dr. Grayson and then with Dr. Pineda-> Consulted surgery for trach/peg -04/30 Insurance Denied LTAC, plan for possible SNF placement now. Case managemen t to arrange -Family declined SNF -Awaiting discharge home with ventilator setup for home care due to need for ventilation secondary to trachestomy The high probability of a clinically significant, sudden or life threatening deterioration of the [resp] system(s) required my full and direct attention, intervention and personal management. The aggregate critical care time was [60] minutes. This time is in addition to time spent performing reported procedures but includes the following: [x] Data Review and interpretation [x] Patient assessment and monitoring of vital signs [x] Documentation [x] Medication orders and management Disposition Plan: ICU Total Time Spent with Patient (Minutes): 60 History Interval history: remains on vent. Hospitalist Physical - Physical exam Narrative exam: General appearance: Present: no acute distress, cachectic, other (trach/) - EENT Eyes: Present: PERRL, EOM intact ENT: dentition normal - Neck Neck: Present: normal ROM - Respiratory Respiratory effort: normal Respiratory: bilateral: diminished - Cardiovascular Rhythm: regular Heart Sounds: Present: S1 & S2. Absent: systolic murmur, diastolic murmur - Extremities Extremities: no ischemia, pulses intact, pulses symmetrical, No edema, normal temperature, normal color Peripheral Pulses: within normal limits - Abdominal General gastrointestinal: soft, non-tender, non-distended, normal bowel sounds - Integumentary Integumentary: Present: warm, dry - Psychiatric Psychiatric: cooperative - Neurologic Neurologic: other (With cough/gag, pupils equal and reactive, slight movement to bilateral upper extremities) - Allied Health Allied health notes reviewed: nursing, RT, social work - Constitutional Vitals: Temp Pulse Resp BP Pulse Ox 99.4 F 115 H 31 H 108/69 100 05/07/22 03:59 05/07/22 06:36 05/07/22 06:09 05/07/22 06:36 05/07/22 06:09 General appearance: Present: no acute distress, cachectic, other (trach/) HEART Score - HEART Score Troponin: Troponin T 0.031 ng/mL (0.00-0.029) H 04/08/22 17:47 Results - Labs CBC & Chem 7: 05/05/22 04:23 05/05/22 04:23 Labs: Laboratory Last Values WBC 14.4 K/mm3 (4.5-11.0) H 05/05/22 04:23 RBC 2.75 M/mm3 (3.65-5.03) L 05/05/22 04:23 Hgb 8.2 gm/dl (11.8-15.2) L 05/05/22 04:23 Hct 25.2 % (35.5-45.6) L 05/05/22 04:23 MCV 92 fl (84-94) 05/05/22 04:23 MCH 30 pg (28-32) 05/05/22 04:23 MCHC 32 % (32-34) 05/05/22 04:23 RDW 14.4 % (13.2-15.2) 05/05/22 04:23 Plt Count 320 K/mm3 (140-440) 05/05/22 04:23 Lymph % (Auto) 4.3 % (13.4-35.0) L 04/07/22 03:51 [place] % (Auto) 8.8 % (0.0-7.3) H 04/07/22 03:51 Eos % (Auto) 0.1 % (0.0-4.3) 04/07/22 03:51 Baso % (Auto) 0.2 % (0.0-1.8) 04/07/22 03:51 Lymph # (Auto) 0.6 K/mm3 (1.2-5.4) L 04/07/22 03:51 [place] # (Auto) 1.3 K/mm3 (0.0-0.8) H 04/07/22 03:51 Eos # (Auto) 0.0 K/mm3 (0.0-0.4) 04/07/22 03:51 Baso # (Auto) 0.0 K/mm3 (0.0-0.1) 04/07/22 03:51 Add Manual Diff Complete 04/02/22 19:39 Total Counted 100 04/02/22 19:39 Seg Neutrophils % 86.6 % (40.0-70.0) H 04/07/22 03:51 Seg Neuts % (Manual) 94.0 % (40.0-70.0) H 04/02/22 19:39 Band Neutrophils % 0 % 04/02/22 19:39 Lymphocytes % (Manual) 1.0 % (13.4-35.0) L 04/02/22 19:39 Reactive Lymphs % (Man) 0 % 04/02/22 19:39 Monocytes % (Manual) 5.0 % (0.0-7.3) 04/02/22 19:39 Eosinophils % (Manual) 0 % (0.0-4.3) 04/02/22 19:39 Basophils % (Manual) 0 % (0.0-1.8) 04/02/22 19:39 Metamyelocytes % 0 % 04/02/22 19:39 Myelocytes % 0 % 04/02/22 19:39 Promyelocytes % 0 % 04/02/22 19:39 Blast Cells % 0 % 04/02/22 19:39 Nucleated RBC % Not Reportable 04/02/22 19:39 Seg Neutrophils # 12.7 K/mm3 (1.8-7.7) H 04/07/22 03:51 Seg Neutrophils # Man 13.4 K/mm3 (1.8-7.7) H 04/02/22 19:39 Band Neutrophils # 0.0 K/mm3 04/02/22 19:39 Lymphocytes # (Manual) 0.1 K/mm3 (1.2-5.4) L 04/02/22 19:39 Abs React Lymphs (Man) 0.0 K/mm3 04/02/22 19:39 Monocytes # (Manual) 0.7 K/mm3 (0.0-0.8) 04/02/22 19:39 Eosinophils # (Manual) 0.0 K/mm3 (0.0-0.4) 04/02/22 19:39 Basophils # (Manual) 0.0 K/mm3 (0.0-0.1) 04/02/22 19:39 Metamyelocytes # 0.0 K/mm3 04/02/22 19:39 Myelocytes # 0.0 K/mm3 04/02/22 19:39 Promyelocytes # 0.0 K/mm3 04/02/22 19:39 Blast Cells # 0.0 K/mm3 04/02/22 19:39 WBC Morphology Not Reportable 04/02/22 19:39 Hypersegmented Neuts Not Reportable 04/02/22 19:39 Hyposegmented Neuts Not Reportable 04/02/22 19:39 Hypogranular Neuts Not Reportable 04/02/22 19:39 Smudge Cells Not Reportable 04/02/22 19:39 Toxic Granulation Not Reportable 04/02/22 19:39 Toxic Vacuolation Not Reportable 04/02/22 19:39 Dohle Bodies Not Reportable 04/02/22 19:39 Pelger-Huet Anomaly Not Reportable 04/02/22 19:39 Terry Rods Not Reportable 04/02/22 19:39 Platelet Estimate Consistent w auto 04/02/22 19:39 Clumped Platelets Not Reportable 04/02/22 19:39 Plt Clumps, EDTA Not Reportable 04/02/22 19:39 Large Platelets Not Reportable 04/02/22 19:39 Giant Platelets Not Reportable 04/02/22 19:39 Platelet Satelliting Not Reportable 04/02/22 19:39 Plt Morphology Comment Not Reportable 04/02/22 19:39 RBC Morphology Not Reportable 04/02/22 19:39 Dimorphic RBCs Not Reportable 04/02/22 19:39 Polychromasia Not Reportable 04/02/22 19:39 Hypochromasia Not Reportable 04/02/22 19:39 Poikilocytosis Not Reportable 04/02/22 19:39 Anisocytosis 1+ 04/02/22 19:39 Microcytosis Not Reportable 04/02/22 19:39 Macrocytosis Not Reportable 04/02/22 19:39 Spherocytes Not Reportable 04/02/22 19:39 Pappenheimer Bodies Not Reportable 04/02/22 19:39 Sickle Cells Not Reportable 04/02/22 19:39 Target Cells Not Reportable 04/02/22 19:39 Tear Drop Cells Not Reportable 04/02/22 19:39 Ovalocytes Not Reportable 04/02/22 19:39 Helmet Cells Not Reportable 04/02/22 19:39 [place] Bodies Not Reportable 04/02/22 19:39 [place] Rings Not Reportable 04/02/22 19:39 [place] Cells Not Reportable 04/02/22 19:39 Bite Cells Not Reportable 04/02/22 19:39 Crenated Cell Not Reportable 04/02/22 19:39 Elliptocytes Not Reportable 04/02/22 19:39 Acanthocytes (Spur) Not Reportable 04/02/22 19:39 Rouleaux Not Reportable 04/02/22 19:39 Hemoglobin C Crystals Not Reportable 04/02/22 19:39 Schistocytes Not Reportable 04/02/22 19:39 Malaria parasites Not Reportable 04/02/22 19:39 [place] Bodies Not Reportable 04/02/22 19:39 Hem Pathologist Commnt No 04/02/22 19:39 PT 13.6 Sec. (12.2-14.9) 04/13/22 04:30 INR 0.94 (0.87-1.13) 04/13/22 04:30 APTT 35.7 Sec. (24.2-36.6) 04/07/22 03:51 ABG pH 7.383 pH Units (7.350-7.450) 05/04/22 09:36 ABG pCO2 75.0 mm Hg 05/04/22 09:36 ABG pO2 55.4 mm Hg (80.0-90.0) L 05/04/22 09:36 ABG HCO3 43.7 mmol/L (20.0-26.0) H 05/04/22 09:36 ABG O2 Saturation 87.4 % (95.0-99.0) L 05/04/22 09:36 ABG O2 Content 11.0 (0.0-44) 05/04/22 09:36 ABG Base Excess 16.1 mmol/L (-2.0-3.0) H 05/04/22 09:36 ABG Hemoglobin 9.1 gm/dl (14.0-18.0) L 05/04/22 09:36 ABG Carboxyhemoglobin 1.5 % (0.0-5.0) 05/04/22 09:36 ABG Methemoglobin 0.4 % (0.0-1.5) 05/04/22 09:36 Oxyhemoglobin 85.7 % (95.0-99.0) L 05/04/22 09:36 FiO2 30 % 05/04/22 09:36 Sodium 137 mmol/L (137-145) 05/05/22 04:23 Potassium 4.3 mmol/L (3.6-5.0) 05/05/22 04:23 Chloride 91.3 mmol/L (98-107) L 05/05/22 04:23 Carbon Dioxide 38 mmol/L (22-30) H 05/05/22 04:23 Anion Gap 12 mmol/L 05/05/22 04:23 BUN 23 mg/dL (9-20) H 05/05/22 04:23 Creatinine < 0.2 mg/dL (0.8-1.3) L 05/05/22 04:23 Estimated GFR > 60 ml/min 05/05/22 04:23 BUN/Creatinine Ratio 115 % 05/05/22 04:23 Glucose 128 mg/dL (75-100) H 05/05/22 04:23 POC Glucose 125 mg/dL (70-105) H 05/07/22 05:29 Lactic Acid 1.90 mmol/L (0.7-2.0) 04/02/22 19:39 Calcium 8.8 mg/dL (8.4-10.2) 05/05/22 04:23 Phosphorus 3.40 mg/dL (2.5-4.5) 05/05/22 04:23 Magnesium 1.90 mg/dL (1.7-2.3) 05/05/22 04:23 Total Bilirubin 0.80 mg/dL (0.1-1.2) 04/02/22 19:39 AST 15 units/L (5-40) 04/02/22 19:39 ALT 9 units/L (7-56) 04/02/22 19:39 Alkaline Phosphatase 43 units/L (35-129) 04/02/22 19:39 Total Creatine Kinase 46 units/L (55-170) L 04/08/22 17:47 CK-MB (CK-2) 2.6 ng/mL (0.0-4.0) 04/08/22 17:47 CK-MB (CK-2) Rel Index 5.6 (0-4) H 04/08/22 17:47 Troponin T 0.031 ng/mL (0.00-0.029) H 04/08/22 17:47 C-Reactive Protein 31.60 mg/dL (0.00-1.30) H 04/04/22 04:18 Total Protein 4.6 g/dL (6.3-8.2) L 04/02/22 19:39 Albumin 2.7 g/dL (3.9-5) L 04/02/22 19:39 Albumin/Globulin Ratio 1.4 % 04/02/22 19:39 Triglycerides 80 mg/dL (2-149) 04/02/22 19:39 Cholesterol 94 mg/dL (50-199) 04/02/22 19:39 LDL Cholesterol Direct 27 mg/dL (50-130) L 04/02/22 19:39 HDL Cholesterol 47 mg/dL (40-59) 04/02/22 19:39 Cholesterol/HDL Ratio 2.00 % 04/02/22 19:39 Procalcitonin 0.08 ng/mL (<0.15) 04/04/22 04:18 Urine Color Aracely (Yellow) 04/05/22 17:45 Urine Turbidity Cloudy (Clear) 04/05/22 17:45 Urine pH 5.0 (5.0-7.0) 04/05/22 17:45 Ur Specific [place] 1.021 (1.003-1.030) 04/05/22 17:45 Urine Protein 30 mg/dl mg/dL (Negative) 04/05/22 17:45 Urine Glucose (UA) Neg mg/dL (Negative) 04/05/22 17:45 Urine Ketones Tr mg/dL (Negative) 04/05/22 17:45 Urine Blood Sm (Negative) 04/05/22 17:45 Urine Nitrite Neg (Negative) 04/05/22 17:45 Urine Bilirubin Neg (Negative) 04/05/22 17:45 Urine Urobilinogen < 2.0 mg/dL (<2.0) 04/05/22 17:45 Ur Leukocyte Esterase Tr (Negative) 04/05/22 17:45 Urine WBC (Auto) 8.0 /HPF (0.0-6.0) H 04/05/22 17:45 Urine RBC (Auto) 3.0 /HPF (0.0-6.0) 04/05/22 17:45 U Epithel Cells (Auto) 2.0 /HPF (0-13.0) 04/05/22 17:45 Urine Bacteria (Auto) 1+ /HPF (Negative) 04/02/22 Unknown Hyaline Casts 1 /LPF 04/05/22 17:45 Urine Mucus 3+ /HPF 04/05/22 17:45 Nasal Screen MRSA (PCR) Negative (Negative) 04/05/22 12:37 Vancomycin Trough 6.0 ug/mL (5.0-20.0) 04/05/22 18:53 Coronavirus (PCR) Negative (Negative) 04/07/22 14:52 Perez/IV: Voiding Method Condom Catheter Active Medications - Current Medications Current Medications: Generic Name Dose Route Start Last Admin Trade Name Freq PRN Reason Stop Dose Admin Acetaminophen 650 mg 04/02/22 23:53 05/04/22 21:37 Acetaminophen 325 Mg Tab PO 650 mg Q6H PRN Administration Pain MILD(1-3)/Fever >100.5/FAITH Acetylcysteine 200 mg 05/04/22 20:00 05/06/22 21:38 Acetylcysteine 20% 200 Mg/1 Ml *For Inhalation Use* INHALATION 200 mg Q12HRT SEGUNDO Administration Albuterol 2.5 mg 05/05/22 20:00 05/06/22 21:38 Albuterol 2.5 Mg/3 Ml Nebu IH 2.5 mg Q12HRT SEGUNDO Administration Bisacodyl 10 mg 04/07/22 09:44 04/12/22 10:06 Bisacodyl 10 Mg Rect Supp DE 10 mg QDAY PRN Administration Constipation Dextrose 50 ml 04/06/22 17:54 Dextrose 50% In Water (25gm) 50 Ml Syringe IV Q30MIN PRN Hypoglycemia Protocol Docusate Sodium 100 mg 04/28/22 10:00 05/06/22 21:03 Docusate Sodium 100 Mg/10 Ml Oral Liqd FEEDTUBE 100 mg BID SEGUNDO Administration Famotidine 20 mg 04/06/22 10:00 05/06/22 21:03 Famotidine 20 Mg Tab FEEDTUBE 20 mg BID SEGUNDO Administration Fentanyl 50 mcg 04/04/22 15:56 05/04/22 12:03 Fentanyl 100 Mcg/2 Ml Inj IV 50 mcg Q2HR PRN Administration For CPOT of greater than 3 Heparin Sodium (Porcine) 5,000 unit 04/03/22 06:00 05/07/22 05:24 Heparin 5,000 Unit/1 Ml Vial SUB-Q 5,000 unit Q8HR SEUGNDO Administration Insulin Human Lispro 0 unit 05/05/22 06:00 05/07/22 05:32 Insulin Lispro 100 Unit/Ml SUB-Q Not Given Q8HR SEGUNDO Protocol Magnesium Hydroxide 30 ml 04/02/22 23:53 Magnesium Hydroxide (Mom) Oral Liqd Udc PO Q4H PRN Constipation Metoprolol Tartrate 12.5 mg 05/03/22 13:00 05/07/22 06:36 Metoprolol Tartrate 25 Mg Tab FEEDTUBE 12.5 mg Q6HR SEGUNDO Administration Ondansetron HCl 4 mg 04/02/22 23:53 Ondansetron 4 Mg/2 Ml Inj IV Q8H PRN Nausea And Vomiting Polyethylene Glycol 17 gm 04/08/22 10:00 05/06/22 09:12 Polyethylene Glycol 3350 17 Gm Powder PO 17 gm QDAY SEGUNDO Administration Quetiapine Fumarate 50 mg 04/28/22 10:00 05/06/22 21:03 Quetiapine 25 Mg Tab FEEDTUBE 50 mg BID SEGUNDO Administration Senna 17.6 mg 04/28/22 10:00 05/06/22 21:03 Sennosides Oral Liqd 8.8 Mg/5 Ml Oral Liqd FEEDTUBE 17.6 mg Q12HR SEGUNDO Administration Sodium Chloride 10 ml 04/03/22 10:00 05/06/22 21:03 Sodium Chloride 0.9% 10 Ml Flush Syringe IV 10 ml BID SEGUNDO Administration Sodium Chloride 10 ml 04/02/22 23:53 Sodium Chloride 0.9% 10 Ml Flush Syringe IV PRN PRN LINE FLUSH Nutrition/Malnutrition Assess - Dietary Evaluation Nutrition/Malnutrition Findings: Nutrition Notes Start: 04/04/22 13:13 Freq: Status: Active Protocol: Document 05/04/22 12:27 COLLEEN (Rec: 05/04/22 12:46 COLLEEN [id number]) Nutrition Notes Initial or Follow up Reassessment Current Diagnosis Coronary Artery Disease, Decubitus(Pressure Ulcer), Sepsis,Respiratory Failure, Malnutrition Other Pertinent Diagnosis HCAP, ALS, Broncopneumonia, NSTEMI, Cardiomyopathy, ... Current Diet TF-Vital AF 1.2 Inderjit @ 50 ml/hr (since D 04/15). Labs/Tests 05/03: Na 134, Cl 90.5, CO2 38 , BUN 21, Crea <0.2, Glu 126. Pertinent Medications 05/04: Nutritionally unremarkable. Height 5 ft 4.8 in Weight 46.8 kg [place] Body Weight (kg) 61.27 BMI 17.2 Weight change and time frame No body weight change reported in 4 weeks. Weight Status Underweight Subjective/Other Information RD consult for routine F/U on TF tolerance/continuation. TF continues as prescribed, and well tolerated, according to RN notes. Pt continues on Mechanical ventilation, O2 saturation @ 96%, according to Physical Assessment Histroy notes. Pt will be discharged home with family; awaiting home- Vent setup; family declined SNF placement, according to Progress notes. Percent of energy/protein needs met: Prescribed TF-Vital AF 1.2 Inderjit @ 50 ml/hr provides for energy/protein needs (1,450 Kcal/91 g) during LOS, 98% Kcal; 100% AA. Burn Absent Trauma Absent GI Symptoms Constipation Difficulty In Swallowing,Chewing Food Allergy No Skin Integrity/Comment Sacral open wound. Current % PO Other Minimum of two criteria No #1 Nutrition Diagnosis Inadequate oral intake Diagnosis Progress(for reassessment Continues documentation) Is patient on ventilator? Yes Is Patient Ambulatory and/or Out of Bed No REE-([facility]-confined to bed) [phone] Calculation Used for Recommendations [facility] Additional Notes Protein: 1.2-2 g/Kg IBW; 73- 122 g/day. Fluids: 1 ml/Kcal, or as per MD. Nutrition Intervention Nutrition Support: Continue TF-Vital AF 1.2 Inderjit @ 50 ml/hr. Flush: 80 ml water Q 4 hr, or as per MD. Kcal 1,450 Protein (gm) 91 Carbohydrates (gm) 134 Fat (gm) 65 Fluid (mL) 980 Fiber (gm) 6 % RDI: 98% Kcal; 100% AA. Goal #1 Provide at least 75% of energy /protein needs through Enteral Feeding during LOS. Follow-Up By: 05/11/22 Additional Comments Continue monitoring TF tolerance and BM.
[2022-05-07] MEDS: ALBUTEROL 2.5 MG/3 ML NEBU IH SCH ×2 (08:26→20:42)
[2022-05-07] MEDS: ACETYLCYSTEINE 20% 200 MG/1 ML *FOR INHALATION USE INHALATION SCH (08:26)
[2022-05-07] MEDS: SENNOSIDES ORAL LIQD 8.8 MG/5 ML ORAL LIQD FEEDTUBE SCH ×2 (09:53→22:18)
[2022-05-07] MEDS: DOCUSATE SODIUM 100 MG/10 ML ORAL LIQD FEEDTUBE SCH ×2 (09:53→22:18)
[2022-05-07] MEDS: FAMOTIDINE 20 MG TAB FEEDTUBE SCH ×2 (09:54→22:12)
[2022-05-07] MEDS: QUEtiapine 25 MG TAB FEEDTUBE SCH ×2 (09:54→22:12)
[2022-05-07] MEDS: POLYETHYLENE GLYCOL 3350 17 GM POWDER PO SCH (09:55)
--- NOTE | 2022-05-07 11:09 | Progress Note ---
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 Protein calorie malnutrition Acute Bronchopneumonia HCAP Hypotension NSTEMI Hypernatremia Acute Metabolic Encephalopathy H/o Amyotrophic Lateral Sclerosis Nonverbal at Baseline Thrombocytopenia Protein Caloric Malnutrition Constipation - tolerating trilogy trial well now; will continue family ventilator training - continue daily SAT and SBT assessment as tolerated while in hospital - follow routine labs and address - optimize nutritional status - continue care as below otherwise; - bronchoscopy if develops large volume atelectasis - continue mucomyst nebs for thick tenacious secretions - continue scheduled CPT - continue Seroquel for anxiolysis / delirium - continue bronchodilators with pulmonary hygiene per RT - continue to wean supplemental oxygen for target O2 sat's > 90% acutely - VAP bundle addressed - continue lung protective strategies - wean per pulmonary driven protocols otherwise - continue accuchecks with glycemic control per SSI (While critically ill target blood glucose of 140-180 mg/dL; avoid hypoglycemia) - sedation prn for target RASS 0 to -1 - avoid nephrotoxins, renally dose all medications - continue to avoid benzodiazepine's, reduce the possibility of delirium - AB's per ID rec's - prn analgesia per CPOT score - Maintenance of sleep-wake cycle, avoid delirium - continue enteral nutritional support at goal rate as tolerated - G.I. & VTE prophylaxis - PT/OT/ROM exercises - continue mobility protocols for pressure ulcer prophylaxis - Monitor hemodynamics closely - continue other care per attending / other consultants - discharge planning ongoing concurrently COVID SPECIFIC INTERVENTIONS - test pending .... Re-evaluate in am & prn CONDITION: CRITICAL PROGNOSIS: GUARDED CODE STATUS: FULL CODE The high probability of a clinically significant, sudden or life-threatening de terioration of the [respiratory, cardiovascular & neurologic] system(s) required my full and direct attention, intervention and personal management. The aggregate critical care time was [32] minutes without overlap. Time includes spent on; [x] Data Review and interpretation [x] Patient assessment and monitoring of vital signs [x] Documentation [x] Medication orders and management Subjective Date of service: 05/07/22 Principal diagnosis: Ac and ch hypercapnic and hypoxemic Resp Failure; ALS; HCAP; Sepsis; NSTEMI Interval history: Patient is seen today for: Acute and chronic hypercapnic and hypoxemic Respiratory Failure; ALS; HCAP; Sepsis; NSTEMI; AMS; Hypernatremia; Thrombocytopenia; Protein Caloric Malnutrition; Constipation Seen and examined at bedside; 24hour events reviewed; nursing and respiratory care staff consulted; no adverse overnight events reported to me; resting peacefully in bed; remains on MVS; family ventilator training has resumed today; patient appears calm and comfortable today and sleeping; no N/V/F/C Objective Vital Signs - 12hr 05/06/22 05/06/22 05/06/22 23:14 23:22 23:23 Temperature Pulse Rate 106 H 120 H 118 H Respiratory 4 L 15 Rate Blood Pressure 86/49 103/54 O2 Sat by Pulse 100 99 Oximetry 05/07/22 05/07/22 05/07/22 00:00 00:48 01:00 Temperature Pulse Rate 114 H 124 H 118 H Respiratory 18 35 H Rate Blood Pressure 99/62 114/72 107/66 O2 Sat by Pulse 95 96 Oximetry 05/07/22 05/07/22 05/07/22 01:01 02:00 03:00 Temperature 99.6 F Pulse Rate 112 H 111 H Respiratory 26 H 27 H Rate Blood Pressure 106/61 102/61 O2 Sat by Pulse 96 96 Oximetry 05/07/22 05/07/22 05/07/22 03:55 03:56 03:59 Temperature 99.4 F Pulse Rate 110 H Respiratory Rate Blood Pressure O2 Sat by Pulse 95 Oximetry 05/07/22 05/07/22 05/07/22 04:00 04:02 05:00 Temperature Pulse Rate 115 H 110 H 105 H Respiratory 13 2 L 14 Rate Blood Pressure 100/57 100/57 92/54 O2 Sat by Pulse 100 100 99 Oximetry 05/07/22 05/07/22 05/07/22 06:09 06:36 07:00 Temperature Pulse Rate 111 H 115 H 101 H Respiratory 31 H 20 Rate Blood Pressure 108/69 96/63 O2 Sat by Pulse 100 100 Oximetry 05/07/22 05/07/22 05/07/22 08:00 08:05 09:00 Temperature 99 F Pulse Rate 104 H 112 H Respiratory 23 28 H Rate Blood Pressure 102/67 106/69 O2 Sat by Pulse 99 93 100 Oximetry 05/07/22 10:00 Temperature Pulse Rate 108 H Respiratory 34 H Rate Blood Pressure 110/71 O2 Sat by Pulse 98 Oximetry Constitutional: no acute distress, alert, other (resting in bed with mildly increased respiratory effort at rest) Eyes: non-icteric ENT: oropharynx moist, other (+ midline tracheostomy) Neck: supple, no lymphadenopathy, no JVD Effort: normal Ascultation: Bilateral: rhonchi Percussion: Bilateral: not dull Cardiovascular: regular rate and rhythm, other (S1,S2) Gastrointestinal: normoactive bowel sounds, soft, non-tender, non-distended Integumentary: normal Extremities: no cyanosis, no edema, pink and warm, pulses normal Neurologic: pupils equal and round, other (functional quadriplegia) Psychiatric: mood appropriate, affect normal, other CBC and BMP: 05/05/22 04:23 05/05/22 04:23 ABG, PT/INR, D-dimer: ABG ABG pH 7.383 pH Units (7.350-7.450) 05/04/22 09:36 ABG pCO2 75.0 mm Hg 05/04/22 09:36 ABG pO2 55.4 mm Hg (80.0-90.0) L 05/04/22 09:36 ABG O2 Saturation 87.4 % (95.0-99.0) L 05/04/22 09:36 PT/INR, D-dimer PT 13.6 Sec. (12.2-14.9) 04/13/22 04:30 INR 0.94 (0.87-1.13) 04/13/22 04:30 Abnormal lab findings: Abnormal Labs 04/02/22 04/02/22 04/02/22 19:39 19:39 19:39 WBC 14.3 H RBC Hgb Hct MCV 96 H Plt Count 104 L Lymph % (Auto) Schley % (Auto) Lymph # (Auto) Schley # (Auto) Seg Neutrophils % Seg Neuts % (Manual) 94.0 H Lymphocytes % (Manual) 1.0 L Seg Neutrophils # Seg Neutrophils # Man 13.4 H Lymphocytes # (Manual) 0.1 L PT 15.9 H INR 1.14 H ABG pH ABG pO2 ABG HCO3 ABG O2 Saturation ABG Base Excess ABG Hemoglobin Oxyhemoglobin Sodium 151 H Potassium Chloride Carbon Dioxide BUN Creatinine 0.5 L Glucose POC Glucose Calcium 8.2 L Phosphorus Magnesium 1.60 L Total Creatine Kinase CK-MB (CK-2) Rel Index Troponin T 0.048 H C-Reactive Protein Total Protein 4.6 L Albumin 2.7 L LDL Cholesterol Direct 27 L Urine WBC (Auto) 04/02/22 04/03/22 04/03/22 19:42 05:14 06:30 WBC RBC Hgb Hct MCV Plt Count Lymph % (Auto) Schley % (Auto) Lymph # (Auto) Schley # (Auto) Seg Neutrophils % Seg Neuts % (Manual) Lymphocytes % (Manual) Seg Neutrophils # Seg Neutrophils # Man Lymphocytes # (Manual) PT INR ABG pH 7.471 H 7.496 H ABG pO2 47.8 L 91.0 H ABG HCO3 30.6 H ABG O2 Saturation 94.4 L ABG Base Excess 6.2 H ABG Hemoglobin 11.0 L 12.8 L Oxyhemoglobin 93.1 L Sodium 149 H Potassium 3.4 L Chloride Carbon Dioxide BUN Creatinine 0.4 L Glucose POC Glucose Calcium Phosphorus Magnesium Total Creatine Kinase CK-MB (CK-2) Rel Index Troponin T C-Reactive Protein Total Protein Albumin LDL Cholesterol Direct Urine WBC (Auto) 04/04/22 04/04/22 04/04/22 04:18 04:18 05:50 WBC 11.8 H RBC Hgb Hct MCV Plt Count 132 L Lymph % (Auto) Schley % (Auto) Lymph # (Auto) Schley # (Auto) Seg Neutrophils % Seg Neuts % (Manual) Lymphocytes % (Manual) Seg Neutrophils # Seg Neutrophils # Man Lymphocytes # (Manual) PT INR ABG pH 7.517 H ABG pO2 115.5 H ABG HCO3 29.9 H ABG O2 Saturation ABG Base Excess 6.7 H ABG Hemoglobin 12.3 L Oxyhemoglobin Sodium Potassium 3.5 L Chloride Carbon Dioxide 31 H BUN Creatinine 0.3 L Glucose 153 H POC Glucose Calcium Phosphorus 1.40 L Magnesium 1.50 L Total Creatine Kinase CK-MB (CK-2) Rel Index Troponin T C-Reactive Protein 31.60 H Total Protein Albumin LDL Cholesterol Direct Urine WBC (Auto) 04/05/22 04/05/22 04/05/22 02:50 05:25 11:28 WBC RBC Hgb Hct MCV Plt Count Lymph % (Auto) Schley % (Auto) Lymph # (Auto) Schley # (Auto) Seg Neutrophils % Seg Neuts % (Manual) Lymphocytes % (Manual) Seg Neutrophils # Seg Neutrophils # Man Lymphocytes # (Manual) PT INR ABG pH 7.455 H ABG pO2 50.7 L ABG HCO3 30.5 H ABG O2 Saturation 89.4 L ABG Base Excess 5.9 H ABG Hemoglobin 11.8 L Oxyhemoglobin 88.2 L Sodium Potassium Chloride Carbon Dioxide 32 H BUN Creatinine 0.2 L Glucose 110 H POC Glucose 124 H Calcium 7.9 L Phosphorus Magnesium Total Creatine Kinase CK-MB (CK-2) Rel Index Troponin T C-Reactive Protein Total Protein Albumin LDL Cholesterol Direct Urine WBC (Auto) 04/05/22 04/05/22 04/06/22 17:45 Unknown 04:00 WBC RBC 3.55 L Hgb 11.1 L 11.5 L Hct 33.2 L 35.1 L MCV Plt Count 113 L 114 L Lymph % (Auto) Schley % (Auto) Lymph # (Auto) Schley # (Auto) Seg Neutrophils % Seg Neuts % (Manual) Lymphocytes % (Manual) Seg Neutrophils # Seg Neutrophils # Man Lymphocytes # (Manual) PT INR ABG pH ABG pO2 ABG HCO3 ABG O2 Saturation ABG Base Excess ABG Hemoglobin Oxyhemoglobin Sodium Potassium Chloride Carbon Dioxide BUN Creatinine Glucose POC Glucose Calcium Phosphorus Magnesium Total Creatine Kinase CK-MB (CK-2) Rel Index Troponin T C-Reactive Protein Total Protein Albumin LDL Cholesterol Direct Urine WBC (Auto) 8.0 H 04/06/22 04/06/22 04/07/22 04:00 08:30 00:04 WBC RBC Hgb Hct MCV Plt Count Lymph % (Auto) Schley % (Auto) Lymph # (Auto) Schley # (Auto) Seg Neutrophils % Seg Neuts % (Manual) Lymphocytes % (Manual) Seg Neutrophils # Seg Neutrophils # Man Lymphocytes # (Manual) PT INR ABG pH ABG pO2 60.8 L ABG HCO3 30.5 H ABG O2 Saturation 93.3 L ABG Base Excess 4.9 H ABG Hemoglobin 12.4 L Oxyhemoglobin 92.1 L Sodium Potassium 3.0 L Chloride Carbon Dioxide BUN Creatinine < 0.2 L Glucose 130 H POC Glucose 117 H Calcium 8.1 L Phosphorus Magnesium Total Creatine Kinase CK-MB (CK-2) Rel Index Troponin T C-Reactive Protein Total Protein Albumin LDL Cholesterol Direct Urine WBC (Auto) 04/07/22 04/07/22 04/07/22 03:51 03:51 03:51 WBC 14.6 H RBC 3.57 L Hgb 11.1 L Hct 33.2 L MCV Plt Count 118 L Lymph % (Auto) 4.3 L Schley % (Auto) 8.8 H Lymph # (Auto) 0.6 L Schley # (Auto) 1.3 H Seg Neutrophils % 86.6 H Seg Neuts % (Manual) Lymphocytes % (Manual) Seg Neutrophils # 12.7 H Seg Neutrophils # Man Lymphocytes # (Manual) PT 15.2 H INR ABG pH ABG pO2 ABG HCO3 ABG O2 Saturation ABG Base Excess ABG Hemoglobin Oxyhemoglobin Sodium 133 L Potassium Chloride 96.0 L Carbon Dioxide 31 H BUN Creatinine 0.2 L Glucose 130 H POC Glucose Calcium 8.0 L Phosphorus Magnesium Total Creatine Kinase CK-MB (CK-2) Rel Index Troponin T C-Reactive Protein Total Protein Albumin LDL Cholesterol Direct Urine WBC (Auto) 04/07/22 04/07/22 04/08/22 04:25 09:10 04:49 WBC 16.1 H RBC 3.54 L Hgb 10.9 L Hct 33.3 L MCV Plt Count Lymph % (Auto) Schley % (Auto) Lymph # (Auto) Schley # (Auto) Seg Neutrophils % Seg Neuts % (Manual) Lymphocytes % (Manual) Seg Neutrophils # Seg Neutrophils # Man Lymphocytes # (Manual) PT INR ABG pH ABG pO2 71.0 L 63.4 L ABG HCO3 31.5 H 40.0 H ABG O2 Saturation 94.9 L ABG Base Excess 5.9 H 13.6 H ABG Hemoglobin 11.3 L 9.0 L Oxyhemoglobin 93.6 L Sodium Potassium Chloride Carbon Dioxide BUN Creatinine Glucose POC Glucose Calcium Phosphorus Magnesium Total Creatine Kinase CK-MB (CK-2) Rel Index Troponin T C-Reactive Protein Total Protein Albumin LDL Cholesterol Direct Urine WBC (Auto) 04/08/22 04/08/22 04/08/22 04:49 09:53 10:25 WBC RBC Hgb Hct MCV Plt Count Lymph % (Auto) Schley % (Auto) Lymph # (Auto) Schley # (Auto) Seg Neutrophils % Seg Neuts % (Manual) Lymphocytes % (Manual) Seg Neutrophils # Seg Neutrophils # Man Lymphocytes # (Manual) PT INR ABG pH ABG pO2 ABG HCO3 34.7 H ABG O2 Saturation ABG Base Excess 7.9 H ABG Hemoglobin 11.0 L Oxyhemoglobin Sodium 136 L Potassium Chloride 97.7 L Carbon Dioxide 33 H BUN Creatinine 0.2 L Glucose 155 H POC Glucose Calcium Phosphorus Magnesium Total Creatine Kinase CK-MB (CK-2) Rel Index Troponin T 0.030 H C-Reactive Protein Total Protein Albumin LDL Cholesterol Direct Urine WBC (Auto) 04/08/22 04/08/22 04/08/22 11:19 17:47 18:06 WBC RBC Hgb Hct MCV Plt Count Lymph % (Auto) Schley % (Auto) Lymph # (Auto) Schley # (Auto) Seg Neutrophils % Seg Neuts % (Manual) Lymphocytes % (Manual) Seg Neutrophils # Seg Neutrophils # Man Lymphocytes # (Manual) PT INR ABG pH ABG pO2 ABG HCO3 ABG O2 Saturation ABG Base Excess ABG Hemoglobin Oxyhemoglobin Sodium Potassium Chloride Carbon Dioxide BUN Creatinine Glucose POC Glucose 121 H Calcium Phosphorus Magnesium Total Creatine Kinase 31 L 46 L CK-MB (CK-2) Rel Index 6.4 H 5.6 H Troponin T 0.030 H 0.031 H C-Reactive Protein Total Protein Albumin LDL Cholesterol Direct Urine WBC (Auto) 04/09/22 04/09/22 04/09/22 04:35 04:35 11:24 WBC 11.5 H RBC 3.16 L Hgb 9.9 L Hct 29.4 L MCV Plt Count 131 L Lymph % (Auto) Schley % (Auto) Lymph # (Auto) Schley # (Auto) Seg Neutrophils % Seg Neuts % (Manual) Lymphocytes % (Manual) Seg Neutrophils # Seg Neutrophils # Man Lymphocytes # (Manual) PT INR ABG pH ABG pO2 ABG HCO3 ABG O2 Saturation ABG Base Excess ABG Hemoglobin Oxyhemoglobin Sodium Potassium Chloride 97.1 L Carbon Dioxide 35 H BUN Creatinine < 0.2 L Glucose 145 H POC Glucose 147 H Calcium Phosphorus Magnesium Total Creatine Kinase CK-MB (CK-2) Rel Index Troponin T C-Reactive Protein Total Protein Albumin LDL Cholesterol Direct Urine WBC (Auto) 04/09/22 04/09/22 04/09/22 13:00 17:32 23:48 WBC RBC Hgb Hct MCV Plt Count Lymph % (Auto) Schley % (Auto) Lymph # (Auto) Schley # (Auto) Seg Neutrophils % Seg Neuts % (Manual) Lymphocytes % (Manual) Seg Neutrophils # Seg Neutrophils # Man Lymphocytes # (Manual) PT INR ABG pH ABG pO2 66.6 L ABG HCO3 38.2 H ABG O2 Saturation 94.4 L ABG Base Excess 10.7 H ABG Hemoglobin 10.7 L Oxyhemoglobin 92.8 L Sodium Potassium Chloride Carbon Dioxide BUN Creatinine Glucose POC Glucose 143 H 114 H Calcium Phosphorus Magnesium Total Creatine Kinase CK-MB (CK-2) Rel Index Troponin T C-Reactive Protein Total Protein Albumin LDL Cholesterol Direct Urine WBC (Auto) 04/10/22 04/10/22 04/10/22 04:48 04:48 05:34 WBC RBC 2.91 L Hgb 9.1 L Hct 27.7 L MCV 95 H Plt Count Lymph % (Auto) Schley % (Auto) Lymph # (Auto) Schley # (Auto) Seg Neutrophils % Seg Neuts % (Manual) Lymphocytes % (Manual) Seg Neutrophils # Seg Neutrophils # Man Lymphocytes # (Manual) PT INR ABG pH ABG pO2 ABG HCO3 ABG O2 Saturation ABG Base Excess ABG Hemoglobin Oxyhemoglobin Sodium Potassium Chloride 95.7 L Carbon Dioxide 38 H BUN Creatinine < 0.2 L Glucose 118 H POC Glucose 127 H Calcium Phosphorus Magnesium Total Creatine Kinase CK-MB (CK-2) Rel Index Troponin T C-Reactive Protein Total Protein Albumin LDL Cholesterol Direct Urine WBC (Auto) 04/10/22 04/11/22 04/11/22 23:10 04:15 04:15 WBC 17.2 H RBC 2.98 L Hgb 9.2 L Hct 27.9 L MCV Plt Count Lymph % (Auto) Schley % (Auto) Lymph # (Auto) Schley # (Auto) Seg Neutrophils % Seg Neuts % (Manual) Lymphocytes % (Manual) Seg Neutrophils # Seg Neutrophils # Man Lymphocytes # (Manual) PT INR ABG pH ABG pO2 ABG HCO3 ABG O2 Saturation ABG Base Excess ABG Hemoglobin Oxyhemoglobin Sodium Potassium Chloride 96.1 L Carbon Dioxide 35 H BUN Creatinine < 0.2 L Glucose 138 H POC Glucose 106 H Calcium 8.3 L Phosphorus Magnesium Total Creatine Kinase CK-MB (CK-2) Rel Index Troponin T C-Reactive Protein Total Protein Albumin LDL Cholesterol Direct Urine WBC (Auto) 04/11/22 04/11/22 04/11/22 05:31 13:18 16:20 WBC RBC Hgb Hct MCV Plt Count Lymph % (Auto) Schley % (Auto) Lymph # (Auto) Schley # (Auto) Seg Neutrophils % Seg Neuts % (Manual) Lymphocytes % (Manual) Seg Neutrophils # Seg Neutrophils # Man Lymphocytes # (Manual) PT INR ABG pH ABG pO2 57.8 L ABG HCO3 40.5 H ABG O2 Saturation 90.6 L ABG Base Excess 12.6 H ABG Hemoglobin 10.5 L Oxyhemoglobin 89.0 L Sodium Potassium Chloride Carbon Dioxide BUN Creatinine Glucose POC Glucose 129 H 132 H Calcium Phosphorus Magnesium Total Creatine Kinase CK-MB (CK-2) Rel Index Troponin T C-Reactive Protein Total Protein Albumin LDL Cholesterol Direct Urine WBC (Auto) 04/11/22 04/11/22 04/12/22 17:29 23:17 04:00 WBC 17.4 H RBC 2.96 L Hgb 9.0 L Hct 28.0 L MCV 95 H Plt Count Lymph % (Auto) Schley % (Auto) Lymph # (Auto) Schley # (Auto) Seg Neutrophils % Seg Neuts % (Manual) Lymphocytes % (Manual) Seg Neutrophils # Seg Neutrophils # Man Lymphocytes # (Manual) PT INR ABG pH ABG pO2 ABG HCO3 ABG O2 Saturation ABG Base Excess ABG Hemoglobin Oxyhemoglobin Sodium Potassium Chloride Carbon Dioxide BUN Creatinine Glucose POC Glucose 125 H 151 H Calcium Phosphorus Magnesium Total Creatine Kinase CK-MB (CK-2) Rel Index Troponin T C-Reactive Protein Total Protein Albumin LDL Cholesterol Direct Urine WBC (Auto) 04/12/22 04/12/22 04/12/22 04:00 17:03 23:39 WBC RBC Hgb Hct MCV Plt Count Lymph % (Auto) Schley % (Auto) Lymph # (Auto) Schley # (Auto) Seg Neutrophils % Seg Neuts % (Manual) Lymphocytes % (Manual) Seg Neutrophils # Seg Neutrophils # Man Lymphocytes # (Manual) PT INR ABG pH ABG pO2 ABG HCO3 ABG O2 Saturation ABG Base Excess ABG Hemoglobin Oxyhemoglobin Sodium Potassium Chloride 97.4 L Carbon Dioxide 37 H BUN Creatinine < 0.2 L Glucose 127 H POC Glucose 106 H 107 H Calcium Phosphorus Magnesium Total Creatine Kinase CK-MB (CK-2) Rel Index Troponin T C-Reactive Protein Total Protein Albumin LDL Cholesterol Direct Urine WBC (Auto) 04/13/22 04/13/22 04/13/22 04:30 04:30 17:39 WBC 14.1 H RBC 2.66 L Hgb 8.4 L Hct 25.5 L MCV 96 H Plt Count Lymph % (Auto) Schley % (Auto) Lymph # (Auto) Schley # (Auto) Seg Neutrophils % Seg Neuts % (Manual) Lymphocytes % (Manual) Seg Neutrophils # Seg Neutrophils # Man Lymphocytes # (Manual) PT INR ABG pH ABG pO2 ABG HCO3 ABG O2 Saturation ABG Base Excess ABG Hemoglobin Oxyhemoglobin Sodium Potassium Chloride 93.9 L Carbon Dioxide 39 H BUN Creatinine < 0.2 L Glucose POC Glucose 134 H Calcium Phosphorus 1.90 L Magnesium Total Creatine Kinase CK-MB (CK-2) Rel Index Troponin T C-Reactive Protein Total Protein Albumin LDL Cholesterol Direct Urine WBC (Auto) 04/14/22 04/14/22 04/14/22 05:03 05:03 09:10 WBC 15.6 H RBC 3.02 L Hgb 9.3 L Hct 28.8 L MCV 95 H Plt Count Lymph % (Auto) Schley % (Auto) Lymph # (Auto) Schley # (Auto) Seg Neutrophils % Seg Neuts % (Manual) Lymphocytes % (Manual) Seg Neutrophils # Seg Neutrophils # Man Lymphocytes # (Manual) PT INR ABG pH ABG pO2 66.9 L ABG HCO3 44.5 H ABG O2 Saturation ABG Base Excess 17.2 H ABG Hemoglobin 8.1 L Oxyhemoglobin 94.8 L Sodium Potassium Chloride 93.8 L Carbon Dioxide 42 H* BUN Creatinine < 0.2 L Glucose 117 H POC Glucose Calcium Phosphorus Magnesium Total Creatine Kinase CK-MB (CK-2) Rel Index Troponin T C-Reactive Protein Total Protein Albumin LDL Cholesterol Direct Urine WBC (Auto) 04/15/22 04/15/22 04/16/22 04:44 04:44 04:16 WBC 13.0 H 12.6 H RBC 3.19 L 3.09 L Hgb 9.6 L 9.5 L Hct 30.2 L 29.1 L MCV 95 H Plt Count 456 H Lymph % (Auto) Schley % (Auto) Lymph # (Auto) Schley # (Auto) Seg Neutrophils % Seg Neuts % (Manual) Lymphocytes % (Manual) Seg Neutrophils # Seg Neutrophils # Man Lymphocytes # (Manual) PT INR ABG pH ABG pO2 ABG HCO3 ABG O2 Saturation ABG Base Excess ABG Hemoglobin Oxyhemoglobin Sodium Potassium Chloride 95.5 L Carbon Dioxide 37 H BUN Creatinine < 0.2 L Glucose POC Glucose Calcium Phosphorus Magnesium Total Creatine Kinase CK-MB (CK-2) Rel Index Troponin T C-Reactive Protein Total Protein Albumin LDL Cholesterol Direct Urine WBC (Auto) 04/16/22 04/16/22 04/16/22 04:16 05:00 14:00 WBC RBC Hgb Hct MCV Plt Count Lymph % (Auto) Schley % (Auto) Lymph # (Auto) Schley # (Auto) Seg Neutrophils % Seg Neuts % (Manual) Lymphocytes % (Manual) Seg Neutrophils # Seg Neutrophils # Man Lymphocytes # (Manual) PT INR ABG pH 7.324 L ABG pO2 55.6 L ABG HCO3 45.3 H ABG O2 Saturation 87.1 L ABG Base Excess 16.6 H ABG Hemoglobin 8.6 L Oxyhemoglobin 85.7 L Sodium Potassium Chloride 97.6 L Carbon Dioxide 36 H BUN Creatinine < 0.2 L Glucose 109 H POC Glucose 120 H Calcium Phosphorus Magnesium Total Creatine Kinase CK-MB (CK-2) Rel Index Troponin T C-Reactive Protein Total Protein Albumin LDL Cholesterol Direct Urine WBC (Auto) 04/17/22 04/17/22 04/17/22 04:36 04:36 04:57 WBC 14.4 H RBC 3.08 L Hgb 9.4 L Hct 29.0 L MCV Plt Count Lymph % (Auto) Schley % (Auto) Lymph # (Auto) Schley # (Auto) Seg Neutrophils % Seg Neuts % (Manual) Lymphocytes % (Manual) Seg Neutrophils # Seg Neutrophils # Man Lymphocytes # (Manual) PT INR ABG pH ABG pO2 ABG HCO3 ABG O2 Saturation ABG Base Excess ABG Hemoglobin Oxyhemoglobin Sodium Potassium Chloride 95.9 L Carbon Dioxide 39 H BUN Creatinine < 0.2 L Glucose 140 H POC Glucose 137 H Calcium 8.3 L Phosphorus Magnesium Total Creatine Kinase CK-MB (CK-2) Rel Index Troponin T C-Reactive Protein Total Protein Albumin LDL Cholesterol Direct Urine WBC (Auto) 04/17/22 04/17/22 04/18/22 09:15 18:01 04:20 WBC 11.2 H RBC 3.00 L Hgb 9.3 L Hct 28.6 L MCV 95 H Plt Count Lymph % (Auto) Schley % (Auto) Lymph # (Auto) Schley # (Auto) Seg Neutrophils % Seg Neuts % (Manual) Lymphocytes % (Manual) Seg Neutrophils # Seg Neutrophils # Man Lymphocytes # (Manual) PT INR ABG pH 7.345 L ABG pO2 ABG HCO3 48.2 H ABG O2 Saturation ABG Base Excess 19.2 H ABG Hemoglobin 9.7 L Oxyhemoglobin Sodium Potassium Chloride Carbon Dioxide BUN Creatinine Glucose POC Glucose 129 H Calcium Phosphorus Magnesium Total Creatine Kinase CK-MB (CK-2) Rel Index Troponin T C-Reactive Protein Total Protein Albumin LDL Cholesterol Direct Urine WBC (Auto) 04/18/22 04/18/22 04/18/22 04:20 17:35 23:50 WBC RBC Hgb Hct MCV Plt Count Lymph % (Auto) Schley % (Auto) Lymph # (Auto) Schley # (Auto) Seg Neutrophils % Seg Neuts % (Manual) Lymphocytes % (Manual) Seg Neutrophils # Seg Neutrophils # Man Lymphocytes # (Manual) PT INR ABG pH ABG pO2 ABG HCO3 ABG O2 Saturation ABG Base Excess ABG Hemoglobin Oxyhemoglobin Sodium Potassium Chloride 96.8 L Carbon Dioxide 43 H* BUN 22 H Creatinine < 0.2 L Glucose 137 H POC Glucose 128 H 123 H Calcium 8.2 L Phosphorus Magnesium Total Creatine Kinase CK-MB (CK-2) Rel Index Troponin T C-Reactive Protein Total Protein Albumin LDL Cholesterol Direct Urine WBC (Auto) 04/19/22 04/19/22 04/19/22 04:08 04:08 08:50 WBC 16.8 H RBC 3.18 L Hgb 9.8 L Hct 30.1 L MCV 95 H Plt Count Lymph % (Auto) Schley % (Auto) Lymph # (Auto) Schley # (Auto) Seg Neutrophils % Seg Neuts % (Manual) Lymphocytes % (Manual) Seg Neutrophils # Seg Neutrophils # Man Lymphocytes # (Manual) PT INR ABG pH ABG pO2 56.0 L ABG HCO3 47.1 H ABG O2 Saturation 93.3 L ABG Base Excess 20.1 H ABG Hemoglobin 8.0 L Oxyhemoglobin 91.8 L Sodium Potassium Chloride 96.2 L Carbon Dioxide 40 H BUN 24 H Creatinine < 0.2 L Glucose 125 H POC Glucose Calcium 8.3 L Phosphorus Magnesium Total Creatine Kinase CK-MB (CK-2) Rel Index Troponin T C-Reactive Protein Total Protein Albumin LDL Cholesterol Direct Urine WBC (Auto) 04/19/22 04/20/22 04/20/22 12:02 00:40 04:49 WBC 14.7 H RBC 3.36 L Hgb 10.3 L Hct 32.0 L MCV 95 H Plt Count Lymph % (Auto) Schley % (Auto) Lymph # (Auto) Schley # (Auto) Seg Neutrophils % Seg Neuts % (Manual) Lymphocytes % (Manual) Seg Neutrophils # Seg Neutrophils # Man Lymphocytes # (Manual) PT INR ABG pH ABG pO2 ABG HCO3 ABG O2 Saturation ABG Base Excess ABG Hemoglobin Oxyhemoglobin Sodium Potassium Chloride Carbon Dioxide BUN Creatinine Glucose POC Glucose 124 H 140 H Calcium Phosphorus Magnesium Total Creatine Kinase CK-MB (CK-2) Rel Index Troponin T C-Reactive Protein Total Protein Albumin LDL Cholesterol Direct Urine WBC (Auto) 04/20/22 04/20/22 04/21/22 05:36 11:40 04:05 WBC RBC Hgb Hct MCV Plt Count Lymph % (Auto) Schley % (Auto) Lymph # (Auto) Schley # (Auto) Seg Neutrophils % Seg Neuts % (Manual) Lymphocytes % (Manual) Seg Neutrophils # Seg Neutrophils # Man Lymphocytes # (Manual) PT INR ABG pH ABG pO2 ABG HCO3 ABG O2 Saturation ABG Base Excess ABG Hemoglobin Oxyhemoglobin Sodium Potassium Chloride 93.4 L Carbon Dioxide 40 H BUN 25 H Creatinine < 0.2 L Glucose 122 H POC Glucose 125 H 128 H Calcium Phosphorus Magnesium Total Creatine Kinase CK-MB (CK-2) Rel Index Troponin T C-Reactive Protein Total Protein Albumin LDL Cholesterol Direct Urine WBC (Auto) 04/21/22 04/22/22 04/22/22 10:31 05:03 05:03 WBC 12.6 H 12.7 H RBC 2.83 L 2.96 L Hgb 8.6 L 9.0 L Hct 26.9 L 28.0 L MCV 95 H 95 H Plt Count Lymph % (Auto) Schley % (Auto) Lymph # (Auto) Schley # (Auto) Seg Neutrophils % Seg Neuts % (Manual) Lymphocytes % (Manual) Seg Neutrophils # Seg Neutrophils # Man Lymphocytes # (Manual) PT INR ABG pH ABG pO2 ABG HCO3 ABG O2 Saturation ABG Base Excess ABG Hemoglobin Oxyhemoglobin Sodium Potassium Chloride 93.9 L Carbon Dioxide 43 H* BUN 23 H Creatinine < 0.2 L Glucose 137 H POC Glucose Calcium Phosphorus Magnesium Total Creatine Kinase CK-MB (CK-2) Rel Index Troponin T C-Reactive Protein Total Protein Albumin LDL Cholesterol Direct Urine WBC (Auto) 04/22/22 04/23/22 04/24/22 08:34 09:40 04:29 WBC 14.4 H RBC 2.74 L Hgb 8.4 L Hct 25.7 L MCV Plt Count Lymph % (Auto) Schley % (Auto) Lymph # (Auto) Schley # (Auto) Seg Neutrophils % Seg Neuts % (Manual) Lymphocytes % (Manual) Seg Neutrophils # Seg Neutrophils # Man Lymphocytes # (Manual) PT INR ABG pH ABG pO2 54.1 L 56.8 L ABG HCO3 48.5 H 49.0 H ABG O2 Saturation 92.1 L 90.9 L ABG Base Excess 20.9 H 20.8 H ABG Hemoglobin 9.0 L 8.4 L Oxyhemoglobin 90.6 L 89.5 L Sodium Potassium Chloride Carbon Dioxide BUN Creatinine Glucose POC Glucose Calcium Phosphorus Magnesium Total Creatine Kinase CK-MB (CK-2) Rel Index Troponin T C-Reactive Protein Total Protein Albumin LDL Cholesterol Direct Urine WBC (Auto) 04/24/22 04/25/22 04/26/22 04:29 09:00 04:22 WBC RBC 2.88 L Hgb 8.9 L Hct 26.8 L MCV Plt Count Lymph % (Auto) Schley % (Auto) Lymph # (Auto) Schley # (Auto) Seg Neutrophils % Seg Neuts % (Manual) Lymphocytes % (Manual) Seg Neutrophils # Seg Neutrophils # Man Lymphocytes # (Manual) PT INR ABG pH 7.457 H ABG pO2 66.7 L ABG HCO3 42.6 H ABG O2 Saturation ABG Base Excess 15.3 H ABG Hemoglobin 8.8 L Oxyhemoglobin 94.1 L Sodium Potassium Chloride 90.7 L Carbon Dioxide 40 H BUN Creatinine < 0.2 L Glucose 133 H POC Glucose Calcium Phosphorus Magnesium Total Creatine Kinase CK-MB (CK-2) Rel Index Troponin T C-Reactive Protein Total Protein Albumin LDL Cholesterol Direct Urine WBC (Auto) 04/26/22 04/29/22 04/29/22 04:22 04:18 04:18 WBC 13.5 H RBC 2.96 L Hgb 8.9 L Hct 27.7 L MCV Plt Count Lymph % (Auto) Schley % (Auto) Lymph # (Auto) Schley # (Auto) Seg Neutrophils % Seg Neuts % (Manual) Lymphocytes % (Manual) Seg Neutrophils # Seg Neutrophils # Man Lymphocytes # (Manual) PT INR ABG pH ABG pO2 ABG HCO3 ABG O2 Saturation ABG Base Excess ABG Hemoglobin Oxyhemoglobin Sodium Potassium Chloride 93.2 L 95.2 L Carbon Dioxide 37 H 38 H BUN Creatinine < 0.2 L < 0.2 L Glucose 114 H 116 H POC Glucose Calcium Phosphorus Magnesium Total Creatine Kinase CK-MB (CK-2) Rel Index Troponin T C-Reactive Protein Total Protein Albumin LDL Cholesterol Direct Urine WBC (Auto) 05/02/22 05/03/22 05/03/22 04:29 04:02 04:02 WBC 12.9 H 12.3 H RBC 2.82 L 2.83 L Hgb 8.4 L 8.4 L Hct 26.2 L 26.0 L MCV Plt Count Lymph % (Auto) Schley % (Auto) Lymph # (Auto) Schley # (Auto) Seg Neutrophils % Seg Neuts % (Manual) Lymphocytes % (Manual) Seg Neutrophils # Seg Neutrophils # Man Lymphocytes # (Manual) PT INR ABG pH ABG pO2 ABG HCO3 ABG O2 Saturation ABG Base Excess ABG Hemoglobin Oxyhemoglobin Sodium 134 L Potassium Chloride 90.5 L Carbon Dioxide 38 H BUN 21 H Creatinine < 0.2 L Glucose 126 H POC Glucose Calcium Phosphorus Magnesium Total Creatine Kinase CK-MB (CK-2) Rel Index Troponin T C-Reactive Protein Total Protein Albumin LDL Cholesterol Direct Urine WBC (Auto) 05/03/22 05/03/22 05/04/22 12:02 17:42 09:36 WBC RBC Hgb Hct MCV Plt Count Lymph % (Auto) Schley % (Auto) Lymph # (Auto) Schley # (Auto) Seg Neutrophils % Seg Neuts % (Manual) Lymphocytes % (Manual) Seg Neutrophils # Seg Neutrophils # Man Lymphocytes # (Manual) PT INR ABG pH ABG pO2 55.4 L ABG HCO3 43.7 H ABG O2 Saturation 87.4 L ABG Base Excess 16.1 H ABG Hemoglobin 9.1 L Oxyhemoglobin 85.7 L Sodium Potassium Chloride Carbon Dioxide BUN Creatinine Glucose POC Glucose 139 H 131 H Calcium Phosphorus Magnesium Total Creatine Kinase CK-MB (CK-2) Rel Index Troponin T C-Reactive Protein Total Protein Albumin LDL Cholesterol Direct Urine WBC (Auto) 05/04/22 05/04/22 05/05/22 17:08 23:10 04:23 WBC 14.4 H RBC 2.75 L Hgb 8.2 L Hct 25.2 L MCV Plt Count Lymph % (Auto) Schley % (Auto) Lymph # (Auto) Schley # (Auto) Seg Neutrophils % Seg Neuts % (Manual) Lymphocytes % (Manual) Seg Neutrophils # Seg Neutrophils # Man Lymphocytes # (Manual) PT INR ABG pH ABG pO2 ABG HCO3 ABG O2 Saturation ABG Base Excess ABG Hemoglobin Oxyhemoglobin Sodium Potassium Chloride Carbon Dioxide BUN Creatinine Glucose POC Glucose 124 H 115 H Calcium Phosphorus Magnesium Total Creatine Kinase CK-MB (CK-2) Rel Index Troponin T C-Reactive Protein Total Protein Albumin LDL Cholesterol Direct Urine WBC (Auto) 05/05/22 05/05/22 05/06/22 04:23 21:39 05:13 WBC RBC Hgb Hct MCV Plt Count Lymph % (Auto) Schley % (Auto) Lymph # (Auto) Schley # (Auto) Seg Neutrophils % Seg Neuts % (Manual) Lymphocytes % (Manual) Seg Neutrophils # Seg Neutrophils # Man Lymphocytes # (Manual) PT INR ABG pH ABG pO2 ABG HCO3 ABG O2 Saturation ABG Base Excess ABG Hemoglobin Oxyhemoglobin Sodium Potassium Chloride 91.3 L Carbon Dioxide 38 H BUN 23 H Creatinine < 0.2 L Glucose 128 H POC Glucose 141 H 136 H Calcium Phosphorus Magnesium Total Creatine Kinase CK-MB (CK-2) Rel Index Troponin T C-Reactive Protein Total Protein Albumin LDL Cholesterol Direct Urine WBC (Auto) 05/07/22 05:29 WBC RBC Hgb Hct MCV Plt Count Lymph % (Auto) Schley % (Auto) Lymph # (Auto) Schley # (Auto) Seg Neutrophils % Seg Neuts % (Manual) Lymphocytes % (Manual) Seg Neutrophils # Seg Neutrophils # Man Lymphocytes # (Manual) PT INR ABG pH ABG pO2 ABG HCO3 ABG O2 Saturation ABG Base Excess ABG Hemoglobin Oxyhemoglobin Sodium Potassium Chloride Carbon Dioxide BUN Creatinine Glucose POC Glucose 125 H Calcium Phosphorus Magnesium Total Creatine Kinase CK-MB (CK-2) Rel Index Troponin T C-Reactive Protein Total Protein Albumin LDL Cholesterol Direct Urine WBC (Auto) Allied health notes reviewed: nursing
--- NOTE | 2022-05-07 14:02 | Progress Note ---
Assessment and Plan - Patient Problems (1) Respiratory failure Current Visit: Yes Status: Acute Plan to address problem: Patient presented with acute respiratory failure, with chest x-ray showing total whiteout of the right lung, due to acute pneumonia, large right pleural effusion and collapse of the right lung. Continue supportive management, antibiotics. (2) Acute coronary syndrome Current Visit: Yes Status: Acute Plan to address problem: The patient's interval ECGs while in the ICU showed dynamic changes of anterior wall ischemia or infarction. Patient has severe comorbidities including progressive total paralysis of ALS, and intercurrent respiratory failure with large right pleural effusion and total collapse of the right lung. Currently assessed as a poor candidate for aggressive cardiac management due to the multiple severe acute and chronic comorbidities. He has been placed on conservative, empiric coronary artery disease medical therapy. A trach PEG procedure has been completed, discharge planning for prison facility placement is in progress. We will follow intermittently. Subjective Date of service: 05/07/22 Principal diagnosis: Ac and ch hypercapnic and hypoxemic Resp Failure; ALS; HCAP; Sepsis; NSTEMI Interval history: Patient is on the vent via trach, no new cardiac events reported. On cardiac monitor technician, there is a mild sinus tachycardia 111. Objective Vital Signs Temp Pulse Pulse Resp Resp BP Pulse Ox 05/07/22 13:10 103 H 114/73 05/07/22 12:40 104 H 97/50 97 05/07/22 10:00 108 H 34 H 110/71 98 05/07/22 09:00 112 H 28 H 106/69 100 05/07/22 08:26 105 H 15 05/07/22 08:05 93 05/07/22 08:00 99 F 104 H 23 102/67 99 05/07/22 07:00 101 H 20 96/63 100 05/07/22 06:36 115 H 108/69 05/07/22 06:09 111 H 31 H 100 05/07/22 05:00 105 H 14 92/54 99 05/07/22 04:02 110 H 2 L 100/57 100 05/07/22 04:00 115 H 13 100/57 100 05/07/22 03:59 99.4 F 05/07/22 03:56 95 05/07/22 03:55 110 H 05/07/22 03:00 111 H 27 H 102/61 96 05/07/22 02:00 112 H 26 H 106/61 96 05/07/22 01:01 99.6 F 05/07/22 01:00 118 H 35 H 107/66 96 05/07/22 00:48 124 H 114/72 05/07/22 00:00 114 H 18 99/62 95 05/06/22 23:23 118 H 05/06/22 23:22 120 H 15 103/54 99 05/06/22 23:14 106 H 4 L 86/49 100 05/06/22 23:00 118 H 16 103/54 100 05/06/22 22:00 106 H 17 86/49 100 05/06/22 21:00 108 H 20 96/52 100 05/06/22 20:00 111 H 30 H 98/56 100 05/06/22 19:50 110 H 2 L 98/56 100 05/06/22 19:44 99.4 F 05/06/22 19:24 107 H 95 05/06/22 19:00 104 H 16 102/64 81 L 05/06/22 18:00 105 H 35 H 104/68 88 05/06/22 17:18 125 H 121/61 05/06/22 17:00 114 H 15 121/62 89 05/06/22 16:30 100.2 F H 116 H 112/61 96 05/06/22 16:15 95 05/06/22 16:10 05/06/22 16:00 115 H 30 H 105/63 97 05/06/22 15:00 107 H 18 89/53 98 Pulse Ox 05/07/22 13:10 05/07/22 12:40 05/07/22 10:00 05/07/22 09:00 05/07/22 08:26 05/07/22 08:05 05/07/22 08:00 05/07/22 07:00 05/07/22 06:36 05/07/22 06:09 05/07/22 05:00 05/07/22 04:02 05/07/22 04:00 05/07/22 03:59 05/07/22 03:56 05/07/22 03:55 05/07/22 03:00 05/07/22 02:00 05/07/22 01:01 05/07/22 01:00 05/07/22 00:48 05/07/22 00:00 05/06/22 23:23 05/06/22 23:22 05/06/22 23:14 05/06/22 23:00 05/06/22 22:00 05/06/22 21:00 05/06/22 20:00 05/06/22 19:50 05/06/22 19:44 05/06/22 19:24 05/06/22 19:00 05/06/22 18:00 05/06/22 17:18 05/06/22 17:00 05/06/22 16:30 05/06/22 16:15 05/06/22 16:10 97 05/06/22 16:00 05/06/22 15:00 - Physical Examination General: Other (On the vent via tracheostomy) HEENT: Positive: PERRL, Normocephaly, Other (ET-tube in place) Neck: Positive: neck supple, trachea midline (intubated). Negative: JVD/HJR Cardiac: Positive: Regular Rhythm Lungs: Positive: Decreased Breath Sounds Neuro: Positive: Weakness (Generalized myopathy, patient with ALS), Other (On the vent via tracheostomy) Abdomen: Positive: Soft Skin: Positive: Clear Extremities: Present: Other (TR.EDEMA). Absent: edema (NO) - Allied health notes Allied health notes reviewed: nursing
[2022-05-07] MEDS: fentaNYL 100 MCG/2 ML INJ IV PRN (22:15)
[2022-05-08] MEDS: METOPROLOL TARTRATE 25 MG TAB FEEDTUBE SCH ×4 (00:30→18:19)
[2022-05-08] MEDS: INSULIN LISPRO 100 UNIT/ML SUB-Q SCH ×3 (06:31→22:00)
[2022-05-08] MEDS: HEPARIN 5,000 UNIT/1 ML VIAL SUB-Q SCH ×3 (06:31→21:50)
[2022-05-08] MEDS: ALBUTEROL 2.5 MG/3 ML NEBU IH SCH ×2 (07:56→19:21)
[2022-05-08] MEDS: ACETYLCYSTEINE 20% 200 MG/1 ML *FOR INHALATION USE INHALATION SCH ×2 (07:56→19:21)
--- NOTE | 2022-05-08 08:51 | Progress Note ---
Assessment and Plan Assessment and plan: History Interval history: This is a 57-year-old male with ALS who presented to the emergency department on 04/02 with complaints of altered mental status and respiratory distress he was recently discharged home from [facility] with a diagnosis of pneumonia and elevated troponins. Work-up in the emergency department revealed leukocytosis, elevated troponin and hyponatremia and CXR revealed moderate to large pleural effusion on the right. Patient was having agonal breathing in the emergency department and was intubated. Patient was admitted to the hospitalist service with consults to [facility], cardiology and infectious disease for further work-up. Hospital Course to Date: 04/03: Intubated and Sedated on versed gtt, RASS-5. CT head/brain noted with no acute intracranial abnormality. Plan to initiated precededx gtt and wean off versed for a RASS goal of 0 to -2. CT chect also reviewed, findings are most consistent with acute bronchopneumonia. Continue empiric IV Abx, vent adjustment per [facility]. ID consulted. Continue to F/U on cultures. Titrate pressor for MAP above 65. Medical records requested from [facility]. 04/04: Remains stable on the vent, easily arousable on precedex gtt, not following commands. Plan for SAT/SBT today. PRN analgesia for CPOT greater than 3. Fevers improved, cultures and procal pending. Continue current IV abx, ID also consulted. Remains on low dose pressors, titrate pressors for a MAP above 65. 04/05: Long discussion with family with use of translation phone with [facility] regarding goals of care. Family to have meeting amongst themselves and informed care team of decisions. Fentanyl drip added for respiratory distress. Remains on Precedex drip. Antibiotics per ID. Given 2L NS bolus with levophed gtt 04/06: Family discussion with Dr. Grayson for goals of care. CXR shows possible mucus plug, continue CPT as FiO2 is being able to be weaned. Potassium repleted. Weaning fentnyl gtt. 04/07: Ultrasound guided thoracentesis today scheduled, inadequate amount of pleural effusion on so not completed. Patient was started on Levophed overnight which was weaned off this morning however had to be started twice a day. Remains on fentanyl and Precedex. Cardiology discontinued BB and ACEi in setting of hypotension. 04/08: COVID-19 PCR negative. Routine EEG ordered by cardiology which showed ST changes, cardiology aware. They will continue conservative treatment. Repeat troponins 0.030 which are less than admit of 0.048. Dr. Grayson had a long discussion with with the use of stamp mounter today at bedside and has not made a decision regarding goals of care. Possible consult to surgery for trach/PEG early next week. Continues to require Precedex and fentanyl drip for sedation. Carvedilol/lisinopril discontinued as patient is continuously on Levophed. 04/09: No acute events reported overnight, remains on fentanyl, Precedex and Levophed drips. Dr. Grayson and Dr. Pineda updated family at bedside extensively today. Consulted surgery for trach/PEG. COVID-19 PCR negative. 04/10: Patient noted to have desaturation episodes, FiO2 increased slightly to 35%. Will add Mucomyst. Remains on fentanyl and Precedex. Off of Levophed. Surgery consulted for trach/PEG. 04/11: FiO2 increased over night likely related to hypoxia, continues on fent gtt, weaning precedex gtt as he is also on Seroquel. Will d/w [facility] re scheduled or prn oxycodone 04/12: Periods of hypoxia and tachycardia this am. Symptoms improved post deep suction and tracheal lavage, Repeat CXR noted with no significant change. Continue CPT and mucomyst. Plan for possible trach/PEG tomorrow by general surgery. 04/13: Remains stable on the vent. Patient is wake and tracking but does not follow simple commands. No report of hypoxia from overnight, continue CPT and mucomyst. Plan for track and PEG today by General Surgery. Plan for LTAC placement post procedure, case management to arrange. 04/14: VIRGILIO overnight, Trach and PEG postponed for today by general surgery. Plan for LTAC placement post procedure, case management to arrange. 04/15: S/p Trach and PEG. Up to 80% FiO2 this am, this am CXR noted suggesting possible mucus plug. D/W CCM plan for bronch today. Continue CPT and mucomyst. Plan of care thoroughly discussed with patient's and son (who translated for ) at the bedside. Per , corporate sales trainer had already discussed the risks and benefits of the procedure yesterday. She verbalized understanding and agreed with procedure and current care plan, consent signed. Okay to use PEG-tube for meds this am, resume TF once okay by general Surgery. Case management to arrange LTAC placement. 04/16: s/p Bronchocopy by CCM. FiO2 down to 60%, angela 10 this am. This am CXR with moderate improvement. Continue CPT and mucomyst, wean Fio2 as tolerated for SPO2 above 92%. Patient is tolerating TF, advance to goal as ordered. Possible LTAC placement, case management to arrange. 04/17: VIRGILIO overnight. remains stable on the vent, recent CXR and this am ABG noted. Continue CPT and mucomyst, wean Fio2 as tolerated. 04/18: Remains stable on the vent, Fio2 down to 55% and peep of 8 this am. Co ntinue to wean as tolerated, CPT, and mucomyst. Dsiposition- LTAC placement, case management to arrange. 04/19: No acute events overnight. Continue current management. 04/20: No acute events overnight, continue current management 04/21: Patient had chest ultrasound which showed trace pleural effusions, chest x-ray improved after the addition of Mucomyst yesterday. FiO2 55-65%. No acute events overnight. more interactive today. 04/22: Seroquel changed to BID, FiO2 was increased to 60%. RT increased FIO2 to 100 d/t desaturation into the 80s but was able to wean down. CCM increased PEEP and decreased FiO2. 04/23: CCM increase PEEP, no acute events reported overnight. 04/24: Spoke to RT about decreasing FiO2 as tolerated. No acute events reported overnight. Continue supportive management. 04/25: Weaning as tolerated. no acute events overnight. RT to attempt CPAP again today 04/26: VIRGILIO overnight. Patient failed PSV trial again this morning. Continue supportive management and daily PST trial. 04/27: Patient failed PSV trial again this am due to episodes of apnea. Continue daily PSV trial as tolerated. Case management to arrange LTAC placement 04/28: Remains stable. Continue daily PSV trial as tolerated. Awaiting approval for LTAC 04/29: VIRGILIO overnight. Continue daily PSV trial. Awaiting approval for LTAC, case management to arrange. 04/30: Patient continue to fail PSV trial. Per case management patient was denied for LTAC, now possible SNF placement. Case managemen to arrange. Continue supportive measures and daily PSV trial as tolerated. 05/01: VIRGILIO overnight. Continue supportive measures and daily PSV trial as tolerated. Possible SNF placement. 05/02: Continue supportive measures and daily PSV trial as tolerated. Possible SNF placement, case management to arrange 05/03: no acute events overnight, CM arranging home vent setup. Family declined SNF. 05/04: RN/RT reports thin secretions, increase in FiO2 for decreased oxygen on ABG. No acute events overnight. 05/05: Family scheduled for teaching session today at 2pm. Increase in FiO2 overnight to 45%. Awaiting vent setup for home care for ventilation secondary to tracheostomy. 05/06: No acute events reported overnight, T-max 100.9. FiO2 45%. 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, recently hospitalized at [facility] admitted for acute hypoxemic respiratory failure 2/2 pneumonia Neuro: h/o ALS -s/p precedex, fentanyl gtt -Reorientation as needed -Maintain sleep-wake cycle -As needed analgesia -CT head with no acute intracranial process -Per family patient is nonverbal at baseline but responsive -Seroquel Cardiac: Suspect ischemic coronary artery disease, h/o cardiomyopathy -Cardiology consulted, appreciate recommendations -continue conservative management -Blood pressure monitoring per protocol -s/p Vasopressor support with Levophed -Echocardiogram shows ejection fraction of 40 to 45%, mild global hypokinesis of left ventricle -Nitro patch, BB Respiratory: Acute hypoxic respiratory failure -CCM consulted, appreciate recommendations -Intubated on 04/02 with a 7.50 ETT attempt at the lips -s/p trach on 04/14 and s/p bronch on 04/15 -A.m. vent settings: Assist-control/ PRVC TV 400, rate 14, Peep 10, FiO2 45% -See RT notes for titration -CPT and mucomyst -VAP bundle -SPO2 monitoring GI: Moderate protein calorie malnutrition -24 hours + 217 mL -PPI -Peg 04/14 -NTR consulted for tube feedings -BR: Senokot/colace, MiraLAX : Metabolic Alkalosis -Record intake and output -Renally dose medications -Avoid nephrotoxic medications -Daily weights -trend BMP ID: Sepsis, Acute Bronchopneumonia, HAP (Pseudomonas and Enterobacter tracheal aspirate), blood culture with bacillus species -Infectious disease consulted, appreciate recommendation-> signed off -Per infectious disease patient was recently admitted to [facility] but discharged home with home hospice and not giving antibiotics -04/15 Tracheal aspirate with Pseudomonas aeruginosa, Enterobacter aerogenes -04/02 blood culture with bacillus species, 04/05 blood culture NGTD -MRSA (-) -s/p cefepime for 14 days -Monitor WBC and temperature curve Endo: NAD -Avoid hypoglycemia -SSI -Accu-Cheks q 6 Heme: Leukocytosis -Heparin subq -Trend CBC -Transfuse hemoglobin less than 7 -SCDs to BLE while in bed Advance Care Planning - Disease education, care plan, diagnoses, and prognosis were discussed patient's , Carly Lopez, and patient daughter, Kaylee Warren, who translated for #[phone]. They reported that patient was following at [place] for his ALS and during recent hospitalization at [facility] they were told nothing else can be offered to patient at this time and patient was discharge home with home hospice and PO morphine. First hospice visit was on , 04/01 however, patient became unresponsive 04/02 and they brought in to the hospital. - Goal of care and code status were also addressed at that time. Family wants to wait for a couple days to see how patient respond to current treatment before making a decision. All questions and concerns were addressed at this time. Patient family acknowledged understanding and agreement with care plan. -Patient remains a FULL CODE status. -04/05: Discussion at bedside with interpreting service with Dr. Valdivia and family state they would discuss next steps amongst themselves and let healthcare team know of decisions -04/06: extensive discussion with family ( and son) with Dr. Grayson regarding goals of care -04/08: Extensive discussion with with the use of stamp mounter line regarding goals of care; no decision made. Possible consult to surgery for trach/PEG early next week. -04/09: Discussion with and her sister with Dr. Grayson and then with Dr. Pineda-> Consulted surgery for trach/peg -04/30 Insurance Denied LTAC, plan for possible SNF placement now. Case manage ment to arrange -Family declined SNF -Awaiting discharge home with ventilator setup for home care due to need for ventilation secondary to trachestomy The high probability of a clinically significant, sudden or life threatening deterioration of the [resp] system(s) required my full and direct attention, intervention and personal management. The aggregate critical care time was [60] minutes. This time is in addition to time spent performing reported procedures but includes the following: [x] Data Review and interpretation [x] Patient assessment and monitoring of vital signs [x] Documentation [x] Medication orders and management Disposition Plan: ICU Total Time Spent with Patient (Minutes): 60 History Interval history: remains on vent. Hospitalist Physical - Physical exam Narrative exam: General appearance: Present: no acute distress, cachectic, other (trach/) - EENT Eyes: Present: PERRL, EOM intact ENT: dentition normal - Neck Neck: Present: normal ROM - Respiratory Respiratory effort: normal Respiratory: bilateral: diminished - Cardiovascular Rhythm: regular Heart Sounds: Present: S1 & S2. Absent: systolic murmur, diastolic murmur - Extremities Extremities: no ischemia, pulses intact, pulses symmetrical, No edema, normal temperature, normal color Peripheral Pulses: within normal limits - Abdominal General gastrointestinal: soft, non-tender, non-distended, normal bowel sounds - Integumentary Integumentary: Present: warm, dry - Psychiatric Psychiatric: cooperative - Neurologic Neurologic: other (With cough/gag, pupils equal and reactive, slight movement to bilateral upper extremities) - Allied Health Allied health notes reviewed: nursing, RT, social work - Constitutional Vitals: Temp Pulse Resp BP Pulse Ox 96.7 F L 112 H 34 H 106/63 99 05/08/22 08:00 05/08/22 08:00 05/08/22 08:00 05/08/22 08:00 05/08/22 08:00 General appearance: Present: no acute distress, cachectic, other (trach/) HEART Score - HEART Score Troponin: Troponin T 0.031 ng/mL (0.00-0.029) H 04/08/22 17:47 Results - Labs CBC & Chem 7: 05/05/22 04:23 05/05/22 04:23 Labs: Laboratory Last Values WBC 14.4 K/mm3 (4.5-11.0) H 05/05/22 04:23 RBC 2.75 M/mm3 (3.65-5.03) L 05/05/22 04:23 Hgb 8.2 gm/dl (11.8-15.2) L 05/05/22 04:23 Hct 25.2 % (35.5-45.6) L 05/05/22 04:23 MCV 92 fl (84-94) 05/05/22 04:23 MCH 30 pg (28-32) 05/05/22 04:23 MCHC 32 % (32-34) 05/05/22 04:23 RDW 14.4 % (13.2-15.2) 05/05/22 04:23 Plt Count 320 K/mm3 (140-440) 05/05/22 04:23 Lymph % (Auto) 4.3 % (13.4-35.0) L 04/07/22 03:51 Kings % (Auto) 8.8 % (0.0-7.3) H 04/07/22 03:51 Eos % (Auto) 0.1 % (0.0-4.3) 04/07/22 03:51 Baso % (Auto) 0.2 % (0.0-1.8) 04/07/22 03:51 Lymph # (Auto) 0.6 K/mm3 (1.2-5.4) L 04/07/22 03:51 Kings # (Auto) 1.3 K/mm3 (0.0-0.8) H 04/07/22 03:51 Eos # (Auto) 0.0 K/mm3 (0.0-0.4) 04/07/22 03:51 Baso # (Auto) 0.0 K/mm3 (0.0-0.1) 04/07/22 03:51 Add Manual Diff Complete 04/02/22 19:39 Total Counted 100 04/02/22 19:39 Seg Neutrophils % 86.6 % (40.0-70.0) H 04/07/22 03:51 Seg Neuts % (Manual) 94.0 % (40.0-70.0) H 04/02/22 19:39 Band Neutrophils % 0 % 04/02/22 19:39 Lymphocytes % (Manual) 1.0 % (13.4-35.0) L 04/02/22 19:39 Reactive Lymphs % (Man) 0 % 04/02/22 19:39 Monocytes % (Manual) 5.0 % (0.0-7.3) 04/02/22 19:39 Eosinophils % (Manual) 0 % (0.0-4.3) 04/02/22 19:39 Basophils % (Manual) 0 % (0.0-1.8) 04/02/22 19:39 Metamyelocytes % 0 % 04/02/22 19:39 Myelocytes % 0 % 04/02/22 19:39 Promyelocytes % 0 % 04/02/22 19:39 Blast Cells % 0 % 04/02/22 19:39 Nucleated RBC % Not Reportable 04/02/22 19:39 Seg Neutrophils # 12.7 K/mm3 (1.8-7.7) H 04/07/22 03:51 Seg Neutrophils # Man 13.4 K/mm3 (1.8-7.7) H 04/02/22 19:39 Band Neutrophils # 0.0 K/mm3 04/02/22 19:39 Lymphocytes # (Manual) 0.1 K/mm3 (1.2-5.4) L 04/02/22 19:39 Abs React Lymphs (Man) 0.0 K/mm3 04/02/22 19:39 Monocytes # (Manual) 0.7 K/mm3 (0.0-0.8) 04/02/22 19:39 Eosinophils # (Manual) 0.0 K/mm3 (0.0-0.4) 04/02/22 19:39 Basophils # (Manual) 0.0 K/mm3 (0.0-0.1) 04/02/22 19:39 Metamyelocytes # 0.0 K/mm3 04/02/22 19:39 Myelocytes # 0.0 K/mm3 04/02/22 19:39 Promyelocytes # 0.0 K/mm3 04/02/22 19:39 Blast Cells # 0.0 K/mm3 04/02/22 19:39 WBC Morphology Not Reportable 04/02/22 19:39 Hypersegmented Neuts Not Reportable 04/02/22 19:39 Hyposegmented Neuts Not Reportable 04/02/22 19:39 Hypogranular Neuts Not Reportable 04/02/22 19:39 Smudge Cells Not Reportable 04/02/22 19:39 Toxic Granulation Not Reportable 04/02/22 19:39 Toxic Vacuolation Not Reportable 04/02/22 19:39 Dohle Bodies Not Reportable 04/02/22 19:39 Pelger-Huet Anomaly Not Reportable 04/02/22 19:39 Terry Rods Not Reportable 04/02/22 19:39 Platelet Estimate Consistent w auto 04/02/22 19:39 Clumped Platelets Not Reportable 04/02/22 19:39 Plt Clumps, EDTA Not Reportable 04/02/22 19:39 Large Platelets Not Reportable 04/02/22 19:39 Giant Platelets Not Reportable 04/02/22 19:39 Platelet Satelliting Not Reportable 04/02/22 19:39 Plt Morphology Comment Not Reportable 04/02/22 19:39 RBC Morphology Not Reportable 04/02/22 19:39 Dimorphic RBCs Not Reportable 04/02/22 19:39 Polychromasia Not Reportable 04/02/22 19:39 Hypochromasia Not Reportable 04/02/22 19:39 Poikilocytosis Not Reportable 04/02/22 19:39 Anisocytosis 1+ 04/02/22 19:39 Microcytosis Not Reportable 04/02/22 19:39 Macrocytosis Not Reportable 04/02/22 19:39 Spherocytes Not Reportable 04/02/22 19:39 Pappenheimer Bodies Not Reportable 04/02/22 19:39 Sickle Cells Not Reportable 04/02/22 19:39 Target Cells Not Reportable 04/02/22 19:39 Tear Drop Cells Not Reportable 04/02/22 19:39 Ovalocytes Not Reportable 04/02/22 19:39 Helmet Cells Not Reportable 04/02/22 19:39 [place] Bodies Not Reportable 04/02/22 19:39 [place] Rings Not Reportable 04/02/22 19:39 [place] Cells Not Reportable 04/02/22 19:39 Bite Cells Not Reportable 04/02/22 19:39 Crenated Cell Not Reportable 04/02/22 19:39 Elliptocytes Not Reportable 04/02/22 19:39 Acanthocytes (Spur) Not Reportable 04/02/22 19:39 Rouleaux Not Reportable 04/02/22 19:39 Hemoglobin C Crystals Not Reportable 04/02/22 19:39 Schistocytes Not Reportable 04/02/22 19:39 Malaria parasites Not Reportable 04/02/22 19:39 [place] Bodies Not Reportable 04/02/22 19:39 Hem Pathologist Commnt No 04/02/22 19:39 PT 13.6 Sec. (12.2-14.9) 04/13/22 04:30 INR 0.94 (0.87-1.13) 04/13/22 04:30 APTT 35.7 Sec. (24.2-36.6) 04/07/22 03:51 ABG pH 7.383 pH Units (7.350-7.450) 05/04/22 09:36 ABG pCO2 75.0 mm Hg 05/04/22 09:36 ABG pO2 55.4 mm Hg (80.0-90.0) L 05/04/22 09:36 ABG HCO3 43.7 mmol/L (20.0-26.0) H 05/04/22 09:36 ABG O2 Saturation 87.4 % (95.0-99.0) L 05/04/22 09:36 ABG O2 Content 11.0 (0.0-44) 05/04/22 09:36 ABG Base Excess 16.1 mmol/L (-2.0-3.0) H 05/04/22 09:36 ABG Hemoglobin 9.1 gm/dl (14.0-18.0) L 05/04/22 09:36 ABG Carboxyhemoglobin 1.5 % (0.0-5.0) 05/04/22 09:36 ABG Methemoglobin 0.4 % (0.0-1.5) 05/04/22 09:36 Oxyhemoglobin 85.7 % (95.0-99.0) L 05/04/22 09:36 FiO2 30 % 05/04/22 09:36 Sodium 137 mmol/L (137-145) 05/05/22 04:23 Potassium 4.3 mmol/L (3.6-5.0) 05/05/22 04:23 Chloride 91.3 mmol/L (98-107) L 05/05/22 04:23 Carbon Dioxide 38 mmol/L (22-30) H 05/05/22 04:23 Anion Gap 12 mmol/L 05/05/22 04:23 BUN 23 mg/dL (9-20) H 05/05/22 04:23 Creatinine < 0.2 mg/dL (0.8-1.3) L 05/05/22 04:23 Estimated GFR > 60 ml/min 05/05/22 04:23 BUN/Creatinine Ratio 115 % 05/05/22 04:23 Glucose 128 mg/dL (75-100) H 05/05/22 04:23 POC Glucose 122 mg/dL (70-105) H 05/08/22 05:48 Lactic Acid 1.90 mmol/L (0.7-2.0) 04/02/22 19:39 Calcium 8.8 mg/dL (8.4-10.2) 05/05/22 04:23 Phosphorus 3.40 mg/dL (2.5-4.5) 05/05/22 04:23 Magnesium 1.90 mg/dL (1.7-2.3) 05/05/22 04:23 Total Bilirubin 0.80 mg/dL (0.1-1.2) 04/02/22 19:39 AST 15 units/L (5-40) 04/02/22 19:39 ALT 9 units/L (7-56) 04/02/22 19:39 Alkaline Phosphatase 43 units/L (35-129) 04/02/22 19:39 Total Creatine Kinase 46 units/L (55-170) L 04/08/22 17:47 CK-MB (CK-2) 2.6 ng/mL (0.0-4.0) 04/08/22 17:47 CK-MB (CK-2) Rel Index 5.6 (0-4) H 04/08/22 17:47 Troponin T 0.031 ng/mL (0.00-0.029) H 04/08/22 17:47 C-Reactive Protein 31.60 mg/dL (0.00-1.30) H 04/04/22 04:18 Total Protein 4.6 g/dL (6.3-8.2) L 04/02/22 19:39 Albumin 2.7 g/dL (3.9-5) L 04/02/22 19:39 Albumin/Globulin Ratio 1.4 % 04/02/22 19:39 Triglycerides 80 mg/dL (2-149) 04/02/22 19:39 Cholesterol 94 mg/dL (50-199) 04/02/22 19:39 LDL Cholesterol Direct 27 mg/dL (50-130) L 04/02/22 19:39 HDL Cholesterol 47 mg/dL (40-59) 04/02/22 19:39 Cholesterol/HDL Ratio 2.00 % 04/02/22 19:39 Procalcitonin 0.08 ng/mL (<0.15) 04/04/22 04:18 Urine Color Aracely (Yellow) 04/05/22 17:45 Urine Turbidity Cloudy (Clear) 04/05/22 17:45 Urine pH 5.0 (5.0-7.0) 04/05/22 17:45 Ur Specific [place] 1.021 (1.003-1.030) 04/05/22 17:45 Urine Protein 30 mg/dl mg/dL (Negative) 04/05/22 17:45 Urine Glucose (UA) Neg mg/dL (Negative) 04/05/22 17:45 Urine Ketones Tr mg/dL (Negative) 04/05/22 17:45 Urine Blood Sm (Negative) 04/05/22 17:45 Urine Nitrite Neg (Negative) 04/05/22 17:45 Urine Bilirubin Neg (Negative) 04/05/22 17:45 Urine Urobilinogen < 2.0 mg/dL (<2.0) 04/05/22 17:45 Ur Leukocyte Esterase Tr (Negative) 04/05/22 17:45 Urine WBC (Auto) 8.0 /HPF (0.0-6.0) H 04/05/22 17:45 Urine RBC (Auto) 3.0 /HPF (0.0-6.0) 04/05/22 17:45 U Epithel Cells (Auto) 2.0 /HPF (0-13.0) 04/05/22 17:45 Urine Bacteria (Auto) 1+ /HPF (Negative) 04/02/22 Unknown Hyaline Casts 1 /LPF 04/05/22 17:45 Urine Mucus 3+ /HPF 04/05/22 17:45 Nasal Screen MRSA (PCR) Negative (Negative) 04/05/22 12:37 Vancomycin Trough 6.0 ug/mL (5.0-20.0) 04/05/22 18:53 Coronavirus (PCR) Negative (Negative) 04/07/22 14:52 Perez/IV: Voiding Method Condom Catheter Active Medications - Current Medications Current Medications: Generic Name Dose Route Start Last Admin Trade Name Freq PRN Reason Stop Dose Admin Acetaminophen 650 mg 04/02/22 23:53 05/04/22 21:37 Acetaminophen 325 Mg Tab PO 650 mg Q6H PRN Administration Pain MILD(1-3)/Fever >100.5/FAITH Acetylcysteine 200 mg 05/04/22 20:00 05/08/22 07:56 Acetylcysteine 20% 200 Mg/1 Ml *For Inhalation Use* INHALATION 200 mg Q12HRT SEGUNDO Administration Albuterol 2.5 mg 05/05/22 20:00 05/08/22 07:56 Albuterol 2.5 Mg/3 Ml Nebu IH 2.5 mg Q12HRT SEGUNDO Administration Bisacodyl 10 mg 04/07/22 09:44 04/12/22 10:06 Bisacodyl 10 Mg Rect Supp MT 10 mg QDAY PRN Administration Constipation Docusate Sodium 100 mg 04/28/22 10:00 05/07/22 22:18 Docusate Sodium 100 Mg/10 Ml Oral Liqd FEEDTUBE Not Given BID SEGUNDO Famotidine 20 mg 04/06/22 10:00 05/07/22 22:12 Famotidine 20 Mg Tab FEEDTUBE 20 mg BID SEGUNDO Administration Fentanyl 50 mcg 04/04/22 15:56 05/07/22 22:15 Fentanyl 100 Mcg/2 Ml Inj IV 50 mcg Q2HR PRN Administration For CPOT of greater than 3 Heparin Sodium (Porcine) 5,000 unit 04/03/22 06:00 05/08/22 06:31 Heparin 5,000 Unit/1 Ml Vial SUB-Q 5,000 unit Q8HR SEGUNDO Administration Insulin Human Lispro 0 unit 05/05/22 06:00 05/08/22 06:31 Insulin Lispro 100 Unit/Ml SUB-Q Not Given Q8HR [facility] Protocol Magnesium Hydroxide 30 ml 04/02/22 23:53 Magnesium Hydroxide (Mom) Oral Liqd Udc PO Q4H PRN Constipation Metoprolol Tartrate 12.5 mg 05/03/22 13:00 05/08/22 06:30 Metoprolol Tartrate 25 Mg Tab FEEDTUBE 12.5 mg Q6HR SEGUNDO Administration Ondansetron HCl 4 mg 04/02/22 23:53 Ondansetron 4 Mg/2 Ml Inj IV Q8H PRN Nausea And Vomiting Polyethylene Glycol 17 gm 04/08/22 10:00 05/07/22 09:55 Polyethylene Glycol 3350 17 Gm Powder PO 17 gm QDAY SEGUNDO Administration Quetiapine Fumarate 50 mg 04/28/22 10:00 05/07/22 22:12 Quetiapine 25 Mg Tab FEEDTUBE 50 mg BID SEGUNDO Administration Senna 17.6 mg 04/28/22 10:00 05/07/22 22:18 Sennosides Oral Liqd 8.8 Mg/5 Ml Oral Liqd FEEDTUBE Not Given Q12HR SEGUNDO Sodium Chloride 10 ml 04/03/22 10:00 05/07/22 22:13 Sodium Chloride 0.9% 10 Ml Flush Syringe IV 10 ml BID SEGUNDO Administration Sodium Chloride 10 ml 04/02/22 23:53 Sodium Chloride 0.9% 10 Ml Flush Syringe IV PRN PRN LINE FLUSH Nutrition/Malnutrition Assess - Dietary Evaluation Nutrition/Malnutrition Findings: Nutrition Notes Start: 04/04/22 13:13 Freq: Status: Active Protocol: Document 05/04/22 12:27 COLLEEN (Rec: 05/04/22 12:46 COLLEEN [id number]) Nutrition Notes Initial or Follow up Reassessment Current Diagnosis Coronary Artery Disease, Decubitus(Pressure Ulcer), Sepsis,Respiratory Failure, Malnutrition Other Pertinent Diagnosis HCAP, ALS, Broncopneumonia, NSTEMI, Cardiomyopathy, ... Current Diet TF-Vital AF 1.2 Inderjit @ 50 ml/hr (since D 04/15). Labs/Tests 05/03: Na 134, Cl 90.5, CO2 38 , BUN 21, Crea <0.2, Glu 126. Pertinent Medications 05/04: Nutritionally unremarkable. Height 5 ft 4.8 in Weight 46.8 kg War Body Weight (kg) 61.27 BMI 17.2 Weight change and time frame No body weight change reported in 4 weeks. Weight Status Underweight Subjective/Other Information RD consult for routine F/U on TF tolerance/continuation. TF continues as prescribed, and well tolerated, according to RN notes. Pt continues on Mechanical ventilation, O2 saturation @ 96%, according to Physical Assessment Histroy notes. Pt will be discharged home with family; awaiting home- Vent setup; family declined SNF placement, according to Progress notes. Percent of energy/protein needs met: Prescribed TF-Vital AF 1.2 Inderjit @ 50 ml/hr provides for energy/protein needs (1,450 Kcal/91 g) during LOS, 98% Kcal; 100% AA. Burn Absent Trauma Absent GI Symptoms Constipation Difficulty In Swallowing,Chewing Food Allergy No Skin Integrity/Comment Sacral open wound. Current % PO Other Minimum of two criteria No #1 Nutrition Diagnosis Inadequate oral intake Diagnosis Progress(for reassessment Continues documentation) Is patient on ventilator? Yes Is Patient Ambulatory and/or Out of Bed No REE-([place]-confined to bed) [phone] Calculation Used for Recommendations [facility] Additional Notes Protein: 1.2-2 g/Kg IBW; 73- 122 g/day. Fluids: 1 ml/Kcal, or as per MD. Nutrition Intervention Nutrition Support: Continue TF-Vital AF 1.2 Inderjit @ 50 ml/hr. Flush: 80 ml water Q 4 hr, or as per MD. Kcal 1,450 Protein (gm) 91 Carbohydrates (gm) 134 Fat (gm) 65 Fluid (mL) 980 Fiber (gm) 6 % RDI: 98% Kcal; 100% AA. Goal #1 Provide at least 75% of energy /protein needs through Enteral Feeding during LOS. Follow-Up By: 05/11/22 Additional Comments Continue monitoring TF tolerance and BM.
[2022-05-08] MEDS: FAMOTIDINE 20 MG TAB FEEDTUBE SCH ×2 (09:33→21:50)
[2022-05-08] MEDS: QUEtiapine 25 MG TAB FEEDTUBE SCH ×2 (09:33→21:50)
[2022-05-08] MEDS: SENNOSIDES ORAL LIQD 8.8 MG/5 ML ORAL LIQD FEEDTUBE SCH ×2 (10:56→22:00)
[2022-05-08] MEDS: POLYETHYLENE GLYCOL 3350 17 GM POWDER PO SCH (10:56)
[2022-05-08] MEDS: DOCUSATE SODIUM 100 MG/10 ML ORAL LIQD FEEDTUBE SCH ×2 (10:56→22:00)
--- NOTE | 2022-05-08 12:59 | Progress Note ---
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 Protein calorie malnutrition Acute Bronchopneumonia HCAP Hypotension NSTEMI Hypernatremia Acute Metabolic Encephalopathy H/o Amyotrophic Lateral Sclerosis Nonverbal at Baseline Thrombocytopenia Protein Caloric Malnutrition Constipation - continue family ventilator and patient care training - continue daily SAT and SBT assessment as tolerated while in hospital - follow routine labs and address - optimize nutritional status - continue care as below otherwise; - bronchoscopy if develops large volume atelectasis - continue mucomyst nebs for thick tenacious secretions - continue scheduled CPT - continue Seroquel for anxiolysis / delirium - continue bronchodilators with pulmonary hygiene per RT - continue to wean supplemental oxygen for target O2 sat's > 90% acutely - VAP bundle addressed - continue lung protective strategies - wean per pulmonary driven protocols otherwise - continue accuchecks with glycemic control per SSI (While critically ill target blood glucose of 140-180 mg/dL; avoid hypoglycemia) - sedation prn for target RASS 0 to -1 - avoid nephrotoxins, renally dose all medications - continue to avoid benzodiazepine's, reduce the possibility of delirium - AB's per ID rec's - prn analgesia per CPOT score - Maintenance of sleep-wake cycle, avoid delirium - continue enteral nutritional support at goal rate as tolerated - G.I. & VTE prophylaxis - PT/OT/ROM exercises - continue mobility protocols for pressure ulcer prophylaxis - Monitor hemodynamics closely - continue other care per attending / other consultants - discharge planning ongoing concurrently COVID SPECIFIC INTERVENTIONS - test pending .... Re-evaluate in am & prn CONDITION: CRITICAL PROGNOSIS: GUARDED CODE STATUS: FULL CODE The high probability of a clinically significant, sudden or life-threatening deterioration of the [respiratory, cardiovascular & neurologic] system(s) required my full and direct attention, intervention and personal management. The aggregate critical care time was [34] minutes without overlap. Time includes spent on; [x] Data Review and interpretation [x] Patient assessment and monitoring of vital signs [x] Documentation [x] Medication orders and management Subjective Date of service: 05/08/22 Principal diagnosis: Ac and ch hypercapnic and hypoxemic Resp Failure; ALS; HCAP; Sepsis; NSTEMI Interval history: Patient is seen today for: Acute and chronic hypercapnic and hypoxemic Respiratory Failure; ALS; HCAP; Sepsis; NSTEMI; AMS; Hypernatremia; Thrombocytopenia; Protein Caloric Malnutrition; Constipation Seen and examined at bedside; 24hour events reviewed; nursing and respiratory care staff consulted; no adverse overnight events reported to me; resting peacefully in bed; remains on MVS; family training ongoing with RN & RT; no new issues today Objective Vital Signs - 12hr 05/08/22 05/08/22 05/08/22 01:00 01:07 02:00 Temperature Pulse Rate 110 H 112 H 115 H Pulse Rate [ From Monitor] Respiratory 15 19 Rate Blood Pressure 105/69 98/55 117/81 O2 Sat by Pulse 98 99 96 Oximetry O2 Sat by Pulse 99 Oximetry [ Assessment] 05/08/22 05/08/22 05/08/22 03:00 03:38 04:00 Temperature 99.3 F Pulse Rate 107 H 108 H Pulse Rate [ From Monitor] Respiratory 14 15 Rate Blood Pressure 97/63 96/66 O2 Sat by Pulse 97 98 Oximetry O2 Sat by Pulse Oximetry [ Assessment] 05/08/22 05/08/22 05/08/22 04:49 05:00 06:00 Temperature Pulse Rate 113 H 113 H 115 H Pulse Rate [ From Monitor] Respiratory 25 H 30 H Rate Blood Pressure 96/66 108/70 109/65 O2 Sat by Pulse 99 98 97 Oximetry O2 Sat by Pulse Oximetry [ Assessment] 05/08/22 05/08/22 05/08/22 06:30 07:00 07:59 Temperature Pulse Rate 116 H 100 H 119 H Pulse Rate [ From Monitor] Respiratory 26 H Rate Blood Pressure 106/71 91/54 106/63 O2 Sat by Pulse 96 99 Oximetry O2 Sat by Pulse Oximetry [ Assessment] 05/08/22 05/08/22 05/08/22 08:00 09:00 10:00 Temperature 96.7 F L Pulse Rate 118 H 111 H 120 H Pulse Rate [ 112 H From Monitor] Respiratory 34 H 36 H 36 H Rate Blood Pressure 106/63 92/58 108/65 O2 Sat by Pulse 99 98 94 Oximetry O2 Sat by Pulse 99 Oximetry [ Assessment] 05/08/22 05/08/22 05/08/22 11:00 12:00 12:29 Temperature Pulse Rate 112 H 114 H 108 H Pulse Rate [ From Monitor] Respiratory 25 H 21 Rate Blood Pressure 95/53 95/57 97/62 O2 Sat by Pulse 92 97 97 Oximetry O2 Sat by Pulse Oximetry [ Assessment] Constitutional: no acute distress, alert, other (resting in bed with mildly increased respiratory effort at rest) Eyes: non-icteric ENT: oropharynx moist, other (+ midline tracheostomy) Neck: supple, no lymphadenopathy, no JVD Effort: normal Ascultation: Bilateral: diminished breath sounds (bases), rhonchi Percussion: Bilateral: not dull Cardiovascular: regular rate and rhythm, other (S1,S2) Gastrointestinal: normoactive bowel sounds, soft, non-tender, non-distended Integumentary: normal Extremities: no cyanosis, no edema, pink and warm, pulses normal Neurologic: pupils equal and round, other (functional quadriplegia) Psychiatric: mood appropriate, affect normal, other CBC and BMP: 05/05/22 04:23 05/05/22 04:23 ABG, PT/INR, D-dimer: ABG ABG pH 7.383 pH Units (7.350-7.450) 05/04/22 09:36 ABG pCO2 75.0 mm Hg 05/04/22 09:36 ABG pO2 55.4 mm Hg (80.0-90.0) L 05/04/22 09:36 ABG O2 Saturation 87.4 % (95.0-99.0) L 05/04/22 09:36 PT/INR, D-dimer PT 13.6 Sec. (12.2-14.9) 04/13/22 04:30 INR 0.94 (0.87-1.13) 04/13/22 04:30 Abnormal lab findings: Abnormal Labs 04/02/22 04/02/22 04/02/22 19:39 19:39 19:39 WBC 14.3 H RBC Hgb Hct MCV 96 H Plt Count 104 L Lymph % (Auto) Crane % (Auto) Lymph # (Auto) Crane # (Auto) Seg Neutrophils % Seg Neuts % (Manual) 94.0 H Lymphocytes % (Manual) 1.0 L Seg Neutrophils # Seg Neutrophils # Man 13.4 H Lymphocytes # (Manual) 0.1 L PT 15.9 H INR 1.14 H ABG pH ABG pO2 ABG HCO3 ABG O2 Saturation ABG Base Excess ABG Hemoglobin Oxyhemoglobin Sodium 151 H Potassium Chloride Carbon Dioxide BUN Creatinine 0.5 L Glucose POC Glucose Calcium 8.2 L Phosphorus Magnesium 1.60 L Total Creatine Kinase CK-MB (CK-2) Rel Index Troponin T 0.048 H C-Reactive Protein Total Protein 4.6 L Albumin 2.7 L LDL Cholesterol Direct 27 L Urine WBC (Auto) 04/02/22 04/03/22 04/03/22 19:42 05:14 06:30 WBC RBC Hgb Hct MCV Plt Count Lymph % (Auto) Crane % (Auto) Lymph # (Auto) Crane # (Auto) Seg Neutrophils % Seg Neuts % (Manual) Lymphocytes % (Manual) Seg Neutrophils # Seg Neutrophils # Man Lymphocytes # (Manual) PT INR ABG pH 7.471 H 7.496 H ABG pO2 47.8 L 91.0 H ABG HCO3 30.6 H ABG O2 Saturation 94.4 L ABG Base Excess 6.2 H ABG Hemoglobin 11.0 L 12.8 L Oxyhemoglobin 93.1 L Sodium 149 H Potassium 3.4 L Chloride Carbon Dioxide BUN Creatinine 0.4 L Glucose POC Glucose Calcium Phosphorus Magnesium Total Creatine Kinase CK-MB (CK-2) Rel Index Troponin T C-Reactive Protein Total Protein Albumin LDL Cholesterol Direct Urine WBC (Auto) 04/04/22 04/04/22 04/04/22 04:18 04:18 05:50 WBC 11.8 H RBC Hgb Hct MCV Plt Count 132 L Lymph % (Auto) Crane % (Auto) Lymph # (Auto) Crane # (Auto) Seg Neutrophils % Seg Neuts % (Manual) Lymphocytes % (Manual) Seg Neutrophils # Seg Neutrophils # Man Lymphocytes # (Manual) PT INR ABG pH 7.517 H ABG pO2 115.5 H ABG HCO3 29.9 H ABG O2 Saturation ABG Base Excess 6.7 H ABG Hemoglobin 12.3 L Oxyhemoglobin Sodium Potassium 3.5 L Chloride Carbon Dioxide 31 H BUN Creatinine 0.3 L Glucose 153 H POC Glucose Calcium Phosphorus 1.40 L Magnesium 1.50 L Total Creatine Kinase CK-MB (CK-2) Rel Index Troponin T C-Reactive Protein 31.60 H Total Protein Albumin LDL Cholesterol Direct Urine WBC (Auto) 04/05/22 04/05/22 04/05/22 02:50 05:25 11:28 WBC RBC Hgb Hct MCV Plt Count Lymph % (Auto) Crane % (Auto) Lymph # (Auto) [place] # (Auto) Seg Neutrophils % Seg Neuts % (Manual) Lymphocytes % (Manual) Seg Neutrophils # Seg Neutrophils # Man Lymphocytes # (Manual) PT INR ABG pH 7.455 H ABG pO2 50.7 L ABG HCO3 30.5 H ABG O2 Saturation 89.4 L ABG Base Excess 5.9 H ABG Hemoglobin 11.8 L Oxyhemoglobin 88.2 L Sodium Potassium Chloride Carbon Dioxide 32 H BUN Creatinine 0.2 L Glucose 110 H POC Glucose 124 H Calcium 7.9 L Phosphorus Magnesium Total Creatine Kinase CK-MB (CK-2) Rel Index Troponin T C-Reactive Protein Total Protein Albumin LDL Cholesterol Direct Urine WBC (Auto) 04/05/22 04/05/22 04/06/22 17:45 Unknown 04:00 WBC RBC 3.55 L Hgb 11.1 L 11.5 L Hct 33.2 L 35.1 L MCV Plt Count 113 L 114 L Lymph % (Auto) Crane % (Auto) Lymph # (Auto) [place] # (Auto) Seg Neutrophils % Seg Neuts % (Manual) Lymphocytes % (Manual) Seg Neutrophils # Seg Neutrophils # Man Lymphocytes # (Manual) PT INR ABG pH ABG pO2 ABG HCO3 ABG O2 Saturation ABG Base Excess ABG Hemoglobin Oxyhemoglobin Sodium Potassium Chloride Carbon Dioxide BUN Creatinine Glucose POC Glucose Calcium Phosphorus Magnesium Total Creatine Kinase CK-MB (CK-2) Rel Index Troponin T C-Reactive Protein Total Protein Albumin LDL Cholesterol Direct Urine WBC (Auto) 8.0 H 04/06/22 04/06/22 04/07/22 04:00 08:30 00:04 WBC RBC Hgb Hct MCV Plt Count Lymph % (Auto) Crane % (Auto) Lymph # (Auto) Cr[place] # (Auto) Seg Neutrophils % Seg Neuts % (Manual) Lymphocytes % (Manual) Seg Neutrophils # Seg Neutrophils # Man Lymphocytes # (Manual) PT INR ABG pH ABG pO2 60.8 L ABG HCO3 30.5 H ABG O2 Saturation 93.3 L ABG Base Excess 4.9 H ABG Hemoglobin 12.4 L Oxyhemoglobin 92.1 L Sodium Potassium 3.0 L Chloride Carbon Dioxide BUN Creatinine < 0.2 L Glucose 130 H POC Glucose 117 H Calcium 8.1 L Phosphorus Magnesium Total Creatine Kinase CK-MB (CK-2) Rel Index Troponin T C-Reactive Protein Total Protein Albumin LDL Cholesterol Direct Urine WBC (Auto) 0604/07/22 04/07/22 03:51 03:51 03:51 WBC 14.6 H RBC 3.57 L Hgb 11.1 L Hct 33.2 L MCV Plt Count 118 L Lymph % (Auto) 4.3 L Crane % (Auto) 8.8 H Lymph # (Auto) 0.6 L Crane # (Auto) 1.3 H Seg Neutrophils % 86.6 H Seg Neuts % (Manual) Lymphocytes % (Manual) Seg Neutrophils # 12.7 H Seg Neutrophils # Man Lymphocytes # (Manual) PT 15.2 H INR ABG pH ABG pO2 ABG HCO3 ABG O2 Saturation ABG Base Excess ABG Hemoglobin Oxyhemoglobin Sodium 133 L Potassium Chloride 96.0 L Carbon Dioxide 31 H BUN Creatinine 0.2 L Glucose 130 H POC Glucose Calcium 8.0 L Phosphorus Magnesium Total Creatine Kinase CK-MB (CK-2) Rel Index Troponin T C-Reactive Protein Total Protein Albumin LDL Cholesterol Direct Urine WBC (Auto) 04/07/22 04/07/22 04/08/22 04:25 09:10 04:49 WBC 16.1 H RBC 3.54 L Hgb 10.9 L Hct 33.3 L MCV Plt Count Lymph % (Auto) Crane % (Auto) Lymph # (Auto) Crane # (Auto) Seg Neutrophils % Seg Neuts % (Manual) Lymphocytes % (Manual) Seg Neutrophils # Seg Neutrophils # Man Lymphocytes # (Manual) PT INR ABG pH ABG pO2 71.0 L 63.4 L ABG HCO3 31.5 H 40.0 H ABG O2 Saturation 94.9 L ABG Base Excess 5.9 H 13.6 H ABG Hemoglobin 11.3 L 9.0 L Oxyhemoglobin 93.6 L Sodium Potassium Chloride Carbon Dioxide BUN Creatinine Glucose POC Glucose Calcium Phosphorus Magnesium Total Creatine Kinase CK-MB (CK-2) Rel Index Troponin T C-Reactive Protein Total Protein Albumin LDL Cholesterol Direct Urine WBC (Auto) 04/08/22 04/08/22 04/08/22 04:49 09:53 10:25 WBC RBC Hgb Hct MCV Plt Count Lymph % (Auto) Crane % (Auto) Lymph # (Auto) Crane # (Auto) Seg Neutrophils % Seg Neuts % (Manual) Lymphocytes % (Manual) Seg Neutrophils # Seg Neutrophils # Man Lymphocytes # (Manual) PT INR ABG pH ABG pO2 ABG HCO3 34.7 H ABG O2 Saturation ABG Base Excess 7.9 H ABG Hemoglobin 11.0 L Oxyhemoglobin Sodium 136 L Potassium Chloride 97.7 L Carbon Dioxide 33 H BUN Creatinine 0.2 L Glucose 155 H POC Glucose Calcium Phosphorus Magnesium Total Creatine Kinase CK-MB (CK-2) Rel Index Troponin T 0.030 H C-Reactive Protein Total Protein Albumin LDL Cholesterol Direct Urine WBC (Auto) 04/08/22 04/08/22 04/08/22 11:19 17:47 18:06 WBC RBC Hgb Hct MCV Plt Count Lymph % (Auto) Crane % (Auto) Lymph # (Auto) [place] # (Auto) Seg Neutrophils % Seg Neuts % (Manual) Lymphocytes % (Manual) Seg Neutrophils # Seg Neutrophils # Man Lymphocytes # (Manual) PT INR ABG pH ABG pO2 ABG HCO3 ABG O2 Saturation ABG Base Excess ABG Hemoglobin Oxyhemoglobin Sodium Potassium Chloride Carbon Dioxide BUN Creatinine Glucose POC Glucose 121 H Calcium Phosphorus Magnesium Total Creatine Kinase 31 L 46 L CK-MB (CK-2) Rel Index 6.4 H 5.6 H Troponin T 0.030 H 0.031 H C-Reactive Protein Total Protein Albumin LDL Cholesterol Direct Urine WBC (Auto) 04/09/22 04/09/22 04/09/22 04:35 04:35 11:24 WBC 11.5 H RBC 3.16 L Hgb 9.9 L Hct 29.4 L MCV Plt Count 131 L Lymph % (Auto) Crane % (Auto) Lymph # (Auto) [place] # (Auto) Seg Neutrophils % Seg Neuts % (Manual) Lymphocytes % (Manual) Seg Neutrophils # Seg Neutrophils # Man Lymphocytes # (Manual) PT INR ABG pH ABG pO2 ABG HCO3 ABG O2 Saturation ABG Base Excess ABG Hemoglobin Oxyhemoglobin Sodium Potassium Chloride 97.1 L Carbon Dioxide 35 H BUN Creatinine < 0.2 L Glucose 145 H POC Glucose 147 H Calcium Phosphorus Magnesium Total Creatine Kinase CK-MB (CK-2) Rel Index Troponin T C-Reactive Protein Total Protein Albumin LDL Cholesterol Direct Urine WBC (Auto) 04/09/22 04/09/22 04/09/22 13:00 17:32 23:48 WBC RBC Hgb Hct MCV Plt Count Lymph % (Auto) Crane % (Auto) Lymph # (Auto) [place] # (Auto) Seg Neutrophils % Seg Neuts % (Manual) Lymphocytes % (Manual) Seg Neutrophils # Seg Neutrophils # Man Lymphocytes # (Manual) PT INR ABG pH ABG pO2 66.6 L ABG HCO3 38.2 H ABG O2 Saturation 94.4 L ABG Base Excess 10.7 H ABG Hemoglobin 10.7 L Oxyhemoglobin 92.8 L Sodium Potassium Chloride Carbon Dioxide BUN Creatinine Glucose POC Glucose 143 H 114 H Calcium Phosphorus Magnesium Total Creatine Kinase CK-MB (CK-2) Rel Index Troponin T C-Reactive Protein Total Protein Albumin LDL Cholesterol Direct Urine WBC (Auto) 04/10/22 04/10/22 04/10/22 04:48 04:48 05:34 WBC RBC 2.91 L Hgb 9.1 L Hct 27.7 L MCV 95 H Plt Count Lymph % (Auto) Crane % (Auto) Lymph # (Auto) Cr[place] # (Auto) Seg Neutrophils % Seg Neuts % (Manual) Lymphocytes % (Manual) Seg Neutrophils # Seg Neutrophils # Man Lymphocytes # (Manual) PT INR ABG pH ABG pO2 ABG HCO3 ABG O2 Saturation ABG Base Excess ABG Hemoglobin Oxyhemoglobin Sodium Potassium Chloride 95.7 L Carbon Dioxide 38 H BUN Creatinine < 0.2 L Glucose 118 H POC Glucose 127 H Calcium Phosphorus Magnesium Total Creatine Kinase CK-MB (CK-2) Rel Index Troponin T C-Reactive Protein Total Protein Albumin LDL Cholesterol Direct Urine WBC (Auto) 04/10/22 04/11/22 04/11/22 23:10 04:15 04:15 WBC 17.2 H RBC 2.98 L Hgb 9.2 L Hct 27.9 L MCV Plt Count Lymph % (Auto) Crane % (Auto) Lymph # (Auto) [place] # (Auto) Seg Neutrophils % Seg Neuts % (Manual) Lymphocytes % (Manual) Seg Neutrophils # Seg Neutrophils # Man Lymphocytes # (Manual) PT INR ABG pH ABG pO2 ABG HCO3 ABG O2 Saturation ABG Base Excess ABG Hemoglobin Oxyhemoglobin Sodium Potassium Chloride 96.1 L Carbon Dioxide 35 H BUN Creatinine < 0.2 L Glucose 138 H POC Glucose 106 H Calcium 8.3 L Phosphorus Magnesium Total Creatine Kinase CK-MB (CK-2) Rel Index Troponin T C-Reactive Protein Total Protein Albumin LDL Cholesterol Direct Urine WBC (Auto) 04/11/22 04/11/22 04/11/22 05:31 13:18 16:20 WBC RBC Hgb Hct MCV Plt Count Lymph % (Auto) Crane % (Auto) Lymph # (Auto) [place] # (Auto) Seg Neutrophils % Seg Neuts % (Manual) Lymphocytes % (Manual) Seg Neutrophils # Seg Neutrophils # Man Lymphocytes # (Manual) PT INR ABG pH ABG pO2 57.8 L ABG HCO3 40.5 H ABG O2 Saturation 90.6 L ABG Base Excess 12.6 H ABG Hemoglobin 10.5 L Oxyhemoglobin 89.0 L Sodium Potassium Chloride Carbon Dioxide BUN Creatinine Glucose POC Glucose 129 H 132 H Calcium Phosphorus Magnesium Total Creatine Kinase CK-MB (CK-2) Rel Index Troponin T C-Reactive Protein Total Protein Albumin LDL Cholesterol Direct Urine WBC (Auto) 04/11/22 04/11/22 04/12/22 17:29 23:17 04:00 WBC 17.4 H RBC 2.96 L Hgb 9.0 L Hct 28.0 L MCV 95 H Plt Count Lymph % (Auto) Crane % (Auto) Lymph # (Auto) [place] # (Auto) Seg Neutrophils % Seg Neuts % (Manual) Lymphocytes % (Manual) Seg Neutrophils # Seg Neutrophils # Man Lymphocytes # (Manual) PT INR ABG pH ABG pO2 ABG HCO3 ABG O2 Saturation ABG Base Excess ABG Hemoglobin Oxyhemoglobin Sodium Potassium Chloride Carbon Dioxide BUN Creatinine Glucose POC Glucose 125 H 151 H Calcium Phosphorus Magnesium Total Creatine Kinase CK-MB (CK-2) Rel Index Troponin T C-Reactive Protein Total Protein Albumin LDL Cholesterol Direct Urine WBC (Auto) 04/12/22 04/12/22 04/12/22 04:00 17:03 23:39 WBC RBC Hgb Hct MCV Plt Count Lymph % (Auto) Crane % (Auto) Lymph # (Auto) [place] # (Auto) Seg Neutrophils % Seg Neuts % (Manual) Lymphocytes % (Manual) Seg Neutrophils # Seg Neutrophils # Man Lymphocytes # (Manual) PT INR ABG pH ABG pO2 ABG HCO3 ABG O2 Saturation ABG Base Excess ABG Hemoglobin Oxyhemoglobin Sodium Potassium Chloride 97.4 L Carbon Dioxide 37 H BUN Creatinine < 0.2 L Glucose 127 H POC Glucose 106 H 107 H Calcium Phosphorus Magnesium Total Creatine Kinase CK-MB (CK-2) Rel Index Troponin T C-Reactive Protein Total Protein Albumin LDL Cholesterol Direct Urine WBC (Auto) 04/13/22 04/13/22 04/13/22 04:30 04:30 17:39 WBC 14.1 H RBC 2.66 L Hgb 8.4 L Hct 25.5 L MCV 96 H Plt Count Lymph % (Auto) Crane % (Auto) Lymph # (Auto) [place] # (Auto) Seg Neutrophils % Seg Neuts % (Manual) Lymphocytes % (Manual) Seg Neutrophils # Seg Neutrophils # Man Lymphocytes # (Manual) PT INR ABG pH ABG pO2 ABG HCO3 ABG O2 Saturation ABG Base Excess ABG Hemoglobin Oxyhemoglobin Sodium Potassium Chloride 93.9 L Carbon Dioxide 39 H BUN Creatinine < 0.2 L Glucose POC Glucose 134 H Calcium Phosphorus 1.90 L Magnesium Total Creatine Kinase CK-MB (CK-2) Rel Index Troponin T C-Reactive Protein Total Protein Albumin LDL Cholesterol Direct Urine WBC (Auto) 04/14/22 04/14/22 04/14/22 05:03 05:03 09:10 WBC 15.6 H RBC 3.02 L Hgb 9.3 L Hct 28.8 L MCV 95 H Plt Count Lymph % (Auto) Crane % (Auto) Lymph # (Auto) [place] # (Auto) Seg Neutrophils % Seg Neuts % (Manual) Lymphocytes % (Manual) Seg Neutrophils # Seg Neutrophils # Man Lymphocytes # (Manual) PT INR ABG pH ABG pO2 66.9 L ABG HCO3 44.5 H ABG O2 Saturation ABG Base Excess 17.2 H ABG Hemoglobin 8.1 L Oxyhemoglobin 94.8 L Sodium Potassium Chloride 93.8 L Carbon Dioxide 42 H* BUN Creatinine < 0.2 L Glucose 117 H POC Glucose Calcium Phosphorus Magnesium Total Creatine Kinase CK-MB (CK-2) Rel Index Troponin T C-Reactive Protein Total Protein Albumin LDL Cholesterol Direct Urine WBC (Auto) 04/15/22 04/15/22 04/16/22 04:44 04:44 04:16 WBC 13.0 H 12.6 H RBC 3.19 L 3.09 L Hgb 9.6 L 9.5 L Hct 30.2 L 29.1 L MCV 95 H Plt Count 456 H Lymph % (Auto) Crane % (Auto) Lymph # (Auto) [place]ane # (Auto) Seg Neutrophils % Seg Neuts % (Manual) Lymphocytes % (Manual) Seg Neutrophils # Seg Neutrophils # Man Lymphocytes # (Manual) PT INR ABG pH ABG pO2 ABG HCO3 ABG O2 Saturation ABG Base Excess ABG Hemoglobin Oxyhemoglobin Sodium Potassium Chloride 95.5 L Carbon Dioxide 37 H BUN Creatinine < 0.2 L Glucose POC Glucose Calcium Phosphorus Magnesium Total Creatine Kinase CK-MB (CK-2) Rel Index Troponin T C-Reactive Protein Total Protein Albumin LDL Cholesterol Direct Urine WBC (Auto) 04/16/22 04/16/22 04/16/22 04:16 05:00 14:00 WBC RBC Hgb Hct MCV Plt Count Lymph % (Auto) Crane % (Auto) Lymph # (Auto) [place] # (Auto) Seg Neutrophils % Seg Neuts % (Manual) Lymphocytes % (Manual) Seg Neutrophils # Seg Neutrophils # Man Lymphocytes # (Manual) PT INR ABG pH 7.324 L ABG pO2 55.6 L ABG HCO3 45.3 H ABG O2 Saturation 87.1 L ABG Base Excess 16.6 H ABG Hemoglobin 8.6 L Oxyhemoglobin 85.7 L Sodium Potassium Chloride 97.6 L Carbon Dioxide 36 H BUN Creatinine < 0.2 L Glucose 109 H POC Glucose 120 H Calcium Phosphorus Magnesium Total Creatine Kinase CK-MB (CK-2) Rel Index Troponin T C-Reactive Protein Total Protein Albumin LDL Cholesterol Direct Urine WBC (Auto) 04/17/22 04/17/22 04/17/22 04:36 04:36 04:57 WBC 14.4 H RBC 3.08 L Hgb 9.4 L Hct 29.0 L MCV Plt Count Lymph % (Auto) Crane % (Auto) Lymph # (Auto) Crane # (Auto) Seg Neutrophils % Seg Neuts % (Manual) Lymphocytes % (Manual) Seg Neutrophils # Seg Neutrophils # Man Lymphocytes # (Manual) PT INR ABG pH ABG pO2 ABG HCO3 ABG O2 Saturation ABG Base Excess ABG Hemoglobin Oxyhemoglobin Sodium Potassium Chloride 95.9 L Carbon Dioxide 39 H BUN Creatinine < 0.2 L Glucose 140 H POC Glucose 137 H Calcium 8.3 L Phosphorus Magnesium Total Creatine Kinase CK-MB (CK-2) Rel Index Troponin T C-Reactive Protein Total Protein Albumin LDL Cholesterol Direct Urine WBC (Auto) 04/17/22 04/17/22 04/18/22 09:15 18:01 04:20 WBC 11.2 H RBC 3.00 L Hgb 9.3 L Hct 28.6 L MCV 95 H Plt Count Lymph % (Auto) Crane % (Auto) Lymph # (Auto) [place]ane # (Auto) Seg Neutrophils % Seg Neuts % (Manual) Lymphocytes % (Manual) Seg Neutrophils # Seg Neutrophils # Man Lymphocytes # (Manual) PT INR ABG pH 7.345 L ABG pO2 ABG HCO3 48.2 H ABG O2 Saturation ABG Base Excess 19.2 H ABG Hemoglobin 9.7 L Oxyhemoglobin Sodium Potassium Chloride Carbon Dioxide BUN Creatinine Glucose POC Glucose 129 H Calcium Phosphorus Magnesium Total Creatine Kinase CK-MB (CK-2) Rel Index Troponin T C-Reactive Protein Total Protein Albumin LDL Cholesterol Direct Urine WBC (Auto) 04/18/22 04/18/22 04/18/22 04:20 17:35 23:50 WBC RBC Hgb Hct MCV Plt Count Lymph % (Auto) Crane % (Auto) Lymph # (Auto) Crane # (Auto) Seg Neutrophils % Seg Neuts % (Manual) Lymphocytes % (Manual) Seg Neutrophils # Seg Neutrophils # Man Lymphocytes # (Manual) PT INR ABG pH ABG pO2 ABG HCO3 ABG O2 Saturation ABG Base Excess ABG Hemoglobin Oxyhemoglobin Sodium Potassium Chloride 96.8 L Carbon Dioxide 43 H* BUN 22 H Creatinine < 0.2 L Glucose 137 H POC Glucose 128 H 123 H Calcium 8.2 L Phosphorus Magnesium Total Creatine Kinase CK-MB (CK-2) Rel Index Troponin T C-Reactive Protein Total Protein Albumin LDL Cholesterol Direct Urine WBC (Auto) 04/19/22 04/19/22 04/19/22 04:08 04:08 08:50 WBC 16.8 H RBC 3.18 L Hgb 9.8 L Hct 30.1 L MCV 95 H Plt Count Lymph % (Auto) Crane % (Auto) Lymph # (Auto) Crane # (Auto) Seg Neutrophils % Seg Neuts % (Manual) Lymphocytes % (Manual) Seg Neutrophils # Seg Neutrophils # Man Lymphocytes # (Manual) PT INR ABG pH ABG pO2 56.0 L ABG HCO3 47.1 H ABG O2 Saturation 93.3 L ABG Base Excess 20.1 H ABG Hemoglobin 8.0 L Oxyhemoglobin 91.8 L Sodium Potassium Chloride 96.2 L Carbon Dioxide 40 H BUN 24 H Creatinine < 0.2 L Glucose 125 H POC Glucose Calcium 8.3 L Phosphorus Magnesium Total Creatine Kinase CK-MB (CK-2) Rel Index Troponin T C-Reactive Protein Total Protein Albumin LDL Cholesterol Direct Urine WBC (Auto) 04/19/22 04/20/22 04/20/22 12:02 00:40 04:49 WBC 14.7 H RBC 3.36 L Hgb 10.3 L Hct 32.0 L MCV 95 H Plt Count Lymph % (Auto) Crane % (Auto) Lymph # (Auto) [place]ane # (Auto) Seg Neutrophils % Seg Neuts % (Manual) Lymphocytes % (Manual) Seg Neutrophils # Seg Neutrophils # Man Lymphocytes # (Manual) PT INR ABG pH ABG pO2 ABG HCO3 ABG O2 Saturation ABG Base Excess ABG Hemoglobin Oxyhemoglobin Sodium Potassium Chloride Carbon Dioxide BUN Creatinine Glucose POC Glucose 124 H 140 H Calcium Phosphorus Magnesium Total Creatine Kinase CK-MB (CK-2) Rel Index Troponin T C-Reactive Protein Total Protein Albumin LDL Cholesterol Direct Urine WBC (Auto) 04/20/22 04/20/22 04/21/22 05:36 11:40 04:05 WBC RBC Hgb Hct MCV Plt Count Lymph % (Auto) Crane % (Auto) Lymph # (Auto) Crane # (Auto) Seg Neutrophils % Seg Neuts % (Manual) Lymphocytes % (Manual) Seg Neutrophils # Seg Neutrophils # Man Lymphocytes # (Manual) PT INR ABG pH ABG pO2 ABG HCO3 ABG O2 Saturation ABG Base Excess ABG Hemoglobin Oxyhemoglobin Sodium Potassium Chloride 93.4 L Carbon Dioxide 40 H BUN 25 H Creatinine < 0.2 L Glucose 122 H POC Glucose 125 H 128 H Calcium Phosphorus Magnesium Total Creatine Kinase CK-MB (CK-2) Rel Index Troponin T C-Reactive Protein Total Protein Albumin LDL Cholesterol Direct Urine WBC (Auto) 04/21/22 04/22/22 04/22/22 10:31 05:03 05:03 WBC 12.6 H 12.7 H RBC 2.83 L 2.96 L Hgb 8.6 L 9.0 L Hct 26.9 L 28.0 L MCV 95 H 95 H Plt Count Lymph % (Auto) Crane % (Auto) Lymph # (Auto) Crane # (Auto) Seg Neutrophils % Seg Neuts % (Manual) Lymphocytes % (Manual) Seg Neutrophils # Seg Neutrophils # Man Lymphocytes # (Manual) PT INR ABG pH ABG pO2 ABG HCO3 ABG O2 Saturation ABG Base Excess ABG Hemoglobin Oxyhemoglobin Sodium Potassium Chloride 93.9 L Carbon Dioxide 43 H* BUN 23 H Creatinine < 0.2 L Glucose 137 H POC Glucose Calcium Phosphorus Magnesium Total Creatine Kinase CK-MB (CK-2) Rel Index Troponin T C-Reactive Protein Total Protein Albumin LDL Cholesterol Direct Urine WBC (Auto) 04/22/22 04/23/22 04/24/22 08:34 09:40 04:29 WBC 14.4 H RBC 2.74 L Hgb 8.4 L Hct 25.7 L MCV Plt Count Lymph % (Auto) [place] % (Auto) Lymph # (Auto) [place] # (Auto) Seg Neutrophils % Seg Neuts % (Manual) Lymphocytes % (Manual) Seg Neutrophils # Seg Neutrophils # Man Lymphocytes # (Manual) PT INR ABG pH ABG pO2 54.1 L 56.8 L ABG HCO3 48.5 H 49.0 H ABG O2 Saturation 92.1 L 90.9 L ABG Base Excess 20.9 H 20.8 H ABG Hemoglobin 9.0 L 8.4 L Oxyhemoglobin 90.6 L 89.5 L Sodium Potassium Chloride Carbon Dioxide BUN Creatinine Glucose POC Glucose Calcium Phosphorus Magnesium Total Creatine Kinase CK-MB (CK-2) Rel Index Troponin T C-Reactive Protein Total Protein Albumin LDL Cholesterol Direct Urine WBC (Auto) 04/24/22 04/25/22 04/26/22 04:29 09:00 04:22 WBC RBC 2.88 L Hgb 8.9 L Hct 26.8 L MCV Plt Count Lymph % (Auto) [place] % (Auto) Lymph # (Auto) [place] # (Auto) Seg Neutrophils % Seg Neuts % (Manual) Lymphocytes % (Manual) Seg Neutrophils # Seg Neutrophils # Man Lymphocytes # (Manual) PT INR ABG pH 7.457 H ABG pO2 66.7 L ABG HCO3 42.6 H ABG O2 Saturation ABG Base Excess 15.3 H ABG Hemoglobin 8.8 L Oxyhemoglobin 94.1 L Sodium Potassium Chloride 90.7 L Carbon Dioxide 40 H BUN Creatinine < 0.2 L Glucose 133 H POC Glucose Calcium Phosphorus Magnesium Total Creatine Kinase CK-MB (CK-2) Rel Index Troponin T C-Reactive Protein Total Protein Albumin LDL Cholesterol Direct Urine WBC (Auto) 04/26/22 04/29/22 04/29/22 04:22 04:18 04:18 WBC 13.5 H RBC 2.96 L Hgb 8.9 L Hct 27.7 L MCV Plt Count Lymph % (Auto) [place] % (Auto) Lymph # (Auto) [place] # (Auto) Seg Neutrophils % Seg Neuts % (Manual) Lymphocytes % (Manual) Seg Neutrophils # Seg Neutrophils # Man Lymphocytes # (Manual) PT INR ABG pH ABG pO2 ABG HCO3 ABG O2 Saturation ABG Base Excess ABG Hemoglobin Oxyhemoglobin Sodium Potassium Chloride 93.2 L 95.2 L Carbon Dioxide 37 H 38 H BUN Creatinine < 0.2 L < 0.2 L Glucose 114 H 116 H POC Glucose Calcium Phosphorus Magnesium Total Creatine Kinase CK-MB (CK-2) Rel Index Troponin T C-Reactive Protein Total Protein Albumin LDL Cholesterol Direct Urine WBC (Auto) 05/02/22 05/03/22 05/03/22 04:29 04:02 04:02 WBC 12.9 H 12.3 H RBC 2.82 L 2.83 L Hgb 8.4 L 8.4 L Hct 26.2 L 26.0 L MCV Plt Count Lymph % (Auto) [place] % (Auto) Lymph # (Auto) [place] # (Auto) Seg Neutrophils % Seg Neuts % (Manual) Lymphocytes % (Manual) Seg Neutrophils # Seg Neutrophils # Man Lymphocytes # (Manual) PT INR ABG pH ABG pO2 ABG HCO3 ABG O2 Saturation ABG Base Excess ABG Hemoglobin Oxyhemoglobin Sodium 134 L Potassium Chloride 90.5 L Carbon Dioxide 38 H BUN 21 H Creatinine < 0.2 L Glucose 126 H POC Glucose Calcium Phosphorus Magnesium Total Creatine Kinase CK-MB (CK-2) Rel Index Troponin T C-Reactive Protein Total Protein Albumin LDL Cholesterol Direct Urine WBC (Auto) 05/03/22 05/03/22 05/04/22 12:02 17:42 09:36 WBC RBC Hgb Hct MCV Plt Count Lymph % (Auto) [place] % (Auto) Lymph # (Auto) [place] # (Auto) Seg Neutrophils % Seg Neuts % (Manual) Lymphocytes % (Manual) Seg Neutrophils # Seg Neutrophils # Man Lymphocytes # (Manual) PT INR ABG pH ABG pO2 55.4 L ABG HCO3 43.7 H ABG O2 Saturation 87.4 L ABG Base Excess 16.1 H ABG Hemoglobin 9.1 L Oxyhemoglobin 85.7 L Sodium Potassium Chloride Carbon Dioxide BUN Creatinine Glucose POC Glucose 139 H 131 H Calcium Phosphorus Magnesium Total Creatine Kinase CK-MB (CK-2) Rel Index Troponin T C-Reactive Protein Total Protein Albumin LDL Cholesterol Direct Urine WBC (Auto) 05/04/22 05/04/22 05/05/22 17:08 23:10 04:23 WBC 14.4 H RBC 2.75 L Hgb 8.2 L Hct 25.2 L MCV Plt Count Lymph % (Auto) [place] % (Auto) Lymph # (Auto) [place] # (Auto) Seg Neutrophils % Seg Neuts % (Manual) Lymphocytes % (Manual) Seg Neutrophils # Seg Neutrophils # Man Lymphocytes # (Manual) PT INR ABG pH ABG pO2 ABG HCO3 ABG O2 Saturation ABG Base Excess ABG Hemoglobin Oxyhemoglobin Sodium Potassium Chloride Carbon Dioxide BUN Creatinine Glucose POC Glucose 124 H 115 H Calcium Phosphorus Magnesium Total Creatine Kinase CK-MB (CK-2) Rel Index Troponin T C-Reactive Protein Total Protein Albumin LDL Cholesterol Direct Urine WBC (Auto) 05/05/22 05/05/22 05/06/22 04:23 21:39 05:13 WBC RBC Hgb Hct MCV Plt Count Lymph % (Auto) [place] % (Auto) Lymph # (Auto) [place] # (Auto) Seg Neutrophils % Seg Neuts % (Manual) Lymphocytes % (Manual) Seg Neutrophils # Seg Neutrophils # Man Lymphocytes # (Manual) PT INR ABG pH ABG pO2 ABG HCO3 ABG O2 Saturation ABG Base Excess ABG Hemoglobin Oxyhemoglobin Sodium Potassium Chloride 91.3 L Carbon Dioxide 38 H BUN 23 H Creatinine < 0.2 L Glucose 128 H POC Glucose 141 H 136 H Calcium Phosphorus Magnesium Total Creatine Kinase CK-MB (CK-2) Rel Index Troponin T C-Reactive Protein Total Protein Albumin LDL Cholesterol Direct Urine WBC (Auto) 05/07/22 05/07/22 05/08/22 05:29 22:15 05:48 WBC RBC Hgb Hct MCV Plt Count Lymph % (Auto) [place] % (Auto) Lymph # (Auto) [place] # (Auto) Seg Neutrophils % Seg Neuts % (Manual) Lymphocytes % (Manual) Seg Neutrophils # Seg Neutrophils # Man Lymphocytes # (Manual) PT INR ABG pH ABG pO2 ABG HCO3 ABG O2 Saturation ABG Base Excess ABG Hemoglobin Oxyhemoglobin Sodium Potassium Chloride Carbon Dioxide BUN Creatinine Glucose POC Glucose 125 H 142 H 122 H Calcium Phosphorus Magnesium Total Creatine Kinase CK-MB (CK-2) Rel Index Troponin T C-Reactive Protein Total Protein Albumin LDL Cholesterol Direct Urine WBC (Auto) Allied health notes reviewed: nursing
[2022-05-09] MEDS: METOPROLOL TARTRATE 25 MG TAB FEEDTUBE SCH ×5 (00:35→23:06)
[2022-05-09] MEDS: INSULIN LISPRO 100 UNIT/ML SUB-Q SCH ×3 (06:25→21:24)
[2022-05-09] MEDS: HEPARIN 5,000 UNIT/1 ML VIAL SUB-Q SCH ×3 (06:26→21:23)
[2022-05-09] MEDS: ALBUTEROL 2.5 MG/3 ML NEBU IH SCH ×2 (08:21→20:19)
[2022-05-09] MEDS: ACETYLCYSTEINE 20% 200 MG/1 ML *FOR INHALATION USE INHALATION SCH ×4 (08:23→20:19)
[2022-05-09] MEDS: QUEtiapine 25 MG TAB FEEDTUBE SCH ×2 (10:30→21:23)
[2022-05-09] MEDS: FAMOTIDINE 20 MG TAB FEEDTUBE SCH ×2 (10:30→21:23)
[2022-05-09] MEDS: SENNOSIDES ORAL LIQD 8.8 MG/5 ML ORAL LIQD FEEDTUBE SCH ×2 (10:31→21:23)
[2022-05-09] MEDS: POLYETHYLENE GLYCOL 3350 17 GM POWDER PO SCH (10:31)
[2022-05-09] MEDS: DOCUSATE SODIUM 100 MG/10 ML ORAL LIQD FEEDTUBE SCH ×2 (10:31→21:23)
--- NOTE | 2022-05-09 13:39 | Progress Note ---
Assessment and Plan Assessment and plan: Interval history: This is a 57-year-old male with ALS who presented to the emergency department on 04/02 with complaints of altered mental status and respiratory distress he was r ecently discharged home from [facility] with a diagnosis of pneumonia and elevated troponins. Work-up in the emergency department revealed leukocytosis, elevated troponin and hyponatremia and CXR revealed moderate to large pleural effusion on the right. Patient was having agonal breathing in the emergency department and was intubated. Patient was admitted to the hospitalist service with consults to [facility], cardiology and infectious disease for further work-up. Hospital Course to Date: 04/03: Intubated and Sedated on versed gtt, RASS-5. CT head/brain noted with no acute intracranial abnormality. Plan to initiated precededx gtt and wean off versed for a RASS goal of 0 to -2. CT chect also reviewed, findings are most consistent with acute bronchopneumonia. Continue empiric IV Abx, vent adjustment per CCM. ID consulted. Continue to F/U on cultures. Titrate pressor for MAP above 65. Medical records requested from [facility]. 04/04: Remains stable on the vent, easily arousable on precedex gtt, not following commands. Plan for SAT/SBT today. PRN analgesia for CPOT greater than 3. Fevers improved, cultures and procal pending. Continue current IV abx, ID also consulted. Remains on low dose pressors, titrate pressors for a MAP above 65. 04/05: Long discussion with family with use of translation phone with [facility] regarding goals of care. Family to have meeting amongst themselves and informed care team of decisions. Fentanyl drip added for respiratory distress. Remains on Precedex drip. Antibiotics per ID. Given 2L NS bolus with levophed gtt 04/06: Family discussion with Dr. Grayson for goals of care. CXR shows possible mucus plug, continue CPT as FiO2 is being able to be weaned. Potassium repleted. Weaning fentnyl gtt. 04/07: Ultrasound guided thoracentesis today scheduled, inadequate amount of pleural effusion on so not completed. Patient was started on Levophed overnight which was weaned off this morning however had to be started twice a day. Remains on fentanyl and Precedex. Cardiology discontinued BB and ACEi in setting of hypotension. 04/08: COVID-19 PCR negative. Routine EEG ordered by cardiology which showed ST changes, cardiology aware. They will continue conservative treatment. Repeat troponins 0.030 which are less than admit of 0.048. Dr. Grayson had a long discussion with with the use of proof inspector today at bedside and has not made a decision regarding goals of care. Possible consult to surgery for tr ach/PEG early next week. Continues to require Precedex and fentanyl drip for sedation. Carvedilol/lisinopril discontinued as patient is continuously on Levophed. 04/09: No acute events reported overnight, remains on fentanyl, Precedex and Levophed drips. Dr. Grayson and Dr. Pineda updated family at bedside extensively today. Consulted surgery for trach/PEG. COVID-19 PCR negative. 04/10: Patient noted to have desaturation episodes, FiO2 increased slightly to 35%. Will add Mucomyst. Remains on fentanyl and Precedex. Off of Levophed. Surgery consulted for trach/PEG. 04/11: FiO2 increased over night likely related to hypoxia, continues on fent gtt, weaning precedex gtt as he is also on Seroquel. Will d/w CCM re scheduled or prn oxycodone 04/12: Periods of hypoxia and tachycardia this am. Symptoms improved post deep suction and tracheal lavage, Repeat CXR noted with no significant change. Continue CPT and mucomyst. Plan for possible trach/PEG tomorrow by general surgery. 04/13: Remains stable on the vent. Patient is wake and tracking but does not follow simple commands. No report of hypoxia from overnight, continue CPT and mucomyst. Plan for track and PEG today by General Surgery. Plan for LTAC placement post procedure, case management to arrange. 04/14: VIRGILIO overnight, Trach and PEG postponed for today by general surgery. Plan for LTAC placement post procedure, case management to arrange. 04/15: S/p Trach and PEG. Up to 80% FiO2 this am, this am CXR noted suggesting possible mucus plug. D/W CCM plan for bronch today. Continue CPT and mucomyst. Plan of care thoroughly discussed with patient's and son (who translated for ) at the bedside. Per , business planner had already discussed the risks and benefits of the procedure yesterday. She verbalized understanding and agreed with procedure and current care plan, consent signed. Okay to use PEG-tube for meds this am, resume TF once okay by general Surgery. Case management to arrange LTAC placement. 04/16: s/p Bronchocopy by CCM. FiO2 down to 60%, angela 10 this am. This am CXR with moderate improvement. Continue CPT and mucomyst, wean Fio2 as tolerated for SPO2 above 92%. Patient is tolerating TF, advance to goal as ordered. Possible LTAC placement, case management to arrange. 04/17: VIRGILIO overnight. remains stable on the vent, recent CXR and this am ABG noted. Continue CPT and mucomyst, wean Fio2 as tolerated. 04/18: Remains stable on the vent, Fio2 down to 55% and peep of 8 this am. Continue to wean as tolerated, CPT, and mucomyst. Dsiposition- LTAC placement, case management to arrange. 04/19: No acute events overnight. Continue current management. 04/20: No acute events overnight, continue current management 04/21: Patient had chest ultrasound which showed trace pleural effusions, chest x-ray improved after the addition of Mucomyst yesterday. FiO2 55-65%. No acute events overnight. more interactive today. 04/22: Seroquel changed to BID, FiO2 was increased to 60%. RT increased FIO2 to 100 d/t desaturation into the 80s but was able to wean down. CCM increased PEEP and decreased FiO2. 04/23: CCM increase PEEP, no acute events reported overnight. 04/24: Spoke to RT about decreasing FiO2 as tolerated. No acute events reported overnight. Continue supportive management. 04/25: Weaning as tolerated. no acute events overnight. RT to attempt CPAP again today 04/26: VIRGILIO overnight. Patient failed PSV trial again this morning. Continue supportive management and daily PST trial. 04/27: Patient failed PSV trial again this am due to episodes of apnea. Continue daily PSV trial as tolerated. Case management to arrange LTAC placement 04/28: Remains stable. Continue daily PSV trial as tolerated. Awaiting approval for LTAC 04/29: VIRGILIO overnight. Continue daily PSV trial. Awaiting approval for LTAC, case management to arrange. 04/30: Patient continue to fail PSV trial. Per case management patient was denied for LTAC, now possible SNF placement. Case managemen to arrange. Continue supportive measures and daily PSV trial as tolerated. 05/01: VIRGILIO overnight. Continue supportive measures and daily PSV trial as tolerated. Possible SNF placement. 05/02: Continue supportive measures and daily PSV trial as tolerated. Possible SNF placement, case management to arrange 05/03: no acute events overnight, CM arranging home vent setup. Family declined SNF. 05/04: RN/RT reports thin secretions, increase in FiO2 for decreased oxygen on ABG. No acute events overnight. 05/05: Family scheduled for teaching session today at 2pm. Increase in FiO2 overnight to 45%. Awaiting vent setup for home care for ventilation secondary to tracheostomy. 05/06: No acute events reported overnight, T-max 100.9. FiO2 45%. Awaiting discharge home with vent when teaching is completed 05/07: No acute events reported overnight, Awaiting discharge home with vent when teaching is completed 05/08: No acute events reported overnight, Awaiting discharge home with vent when teaching is completed 05/09: no acute events reported overnight. Ordered routine labs today. Family continuing with vent training. Anticipate discharge home this week possibly on Tuesday. 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, recently hospitalized at [facility] admitted for acute hypoxemic respiratory failure 2/2 pneumonia Neuro: h/o ALS -s/p precedex, fentanyl gtt -Reorientation as needed -Maintain sleep-wake cycle -As needed analgesia -CT head with no acute intracranial process -Per family patient is nonverbal at baseline but responsive -Seroquel Cardiac: Suspect ischemic coronary artery disease, h/o cardiomyopathy -Cardiology consulted, appreciate recommendations -continue conservative management -Blood pressure monitoring per protocol -s/p Vasopressor support with Levophed -Echocardiogram shows ejection fraction of 40 to 45%, mild global hypokinesis of left ventricle -Nitro patch, BB Respiratory: Acute hypoxic respiratory failure -[facility] consulted, appreciate recommendations -Intubated on 04/02 with a 7.50 ETT attempt at the lips -s/p trach on 04/14 and s/p bronch on 04/15 -A.m. vent settings: Assist-control/ PRVC TV 400, rate 14, Peep 10, FiO2 45% -See RT notes for titration -CPT and mucomyst -VAP bundle -SPO2 monitoring GI: Moderate protein calorie malnutrition -24 hours + 217 mL -PPI -Peg 04/14 -NTR consulted for tube feedings -BR: Senokot/colace, MiraLAX : Metabolic Alkalosis -Record intake and output -Renally dose medications -Avoid nephrotoxic medications -Daily weights -trend BMP ID: Sepsis, Acute Bronchopneumonia, HAP (Pseudomonas and Enterobacter tracheal aspirate), blood culture with bacillus species -Infectious disease consulted, appreciate recommendation-> signed off -Per infectious disease patient was recently admitted to [facility] but discharged home with home hospice and not giving antibiotics -04/15 Tracheal aspirate with Pseudomonas aeruginosa, Enterobacter aerogenes -04/02 blood culture with bacillus species, 04/05 blood culture NGTD -MRSA (-) -s/p cefepime for 14 days -Monitor WBC and temperature curve Endo: NAD -Avoid hypoglycemia -SSI -Accu-Cheks q 6 Heme: Leukocytosis -Heparin subq -Trend CBC -Transfuse hemoglobin less than 7 -SCDs to BLE while in bed Advance Care Planning - Disease education, care plan, diagnoses, and prognosis were discussed patient's , Carly Lopez, and patient daughter, Kaylee Warren, who translated for #[phone]. They reported that patient was following at [facility] for his ALS and during recent hospitalization at [facility] they were told nothing else can be offered to patient at this time and patient was discharge home with home hospice and PO morphine. First hospice visit was on , 04/01 however, patient became unresponsive 04/02 and they brought in to the hospital. - Goal of care and code status were also addressed at that time. Family wants to wait for a couple days to see how patient respond to current treatment before making a decision. All questions and concerns were addressed at this time. Patient family acknowledged understanding and agreement with care plan. -Patient remains a FULL CODE status. -04/05: Discussion at bedside with interpreting service with Dr. Valdivia and family state they would discuss next steps amongst themselves and let healthcare team know of decisions -04/06: extensive discussion with family ( and son) with Dr. Grayson regarding goals of care -04/08: Extensive discussion with with the use of proof inspector line regarding goals of care; no decision made. Possible consult to surgery for trach/PEG early next week. -04/09: Discussion with and her sister with Dr. Grayson and then with Dr. Pineda-> Consulted surgery for trach/peg -04/30 Insurance Denied LTAC, plan for possible SNF placement now. Case management to arrange -Family declined SNF -Awaiting discharge home with ventilator setup for home care due to need for ventilation secondary to trachestomy The high probability of a clinically significant, sudden or life threatening deterioration of the [resp] system(s) required my full and direct attention, in tervention and personal management. The aggregate critical care time was [60] minutes. This time is in addition to time spent performing reported procedures but includes the following: [x] Data Review and interpretation [x] Patient assessment and monitoring of vital signs [x] Documentation [x] Medication orders and management Disposition Plan: ICU Total Time Spent with Patient (Minutes): 60 History Interval history: remains on vent. Hospitalist Physical - Physical exam Narrative exam: General appearance: Present: no acute distress, cachectic, other (trach/) - EENT Eyes: Present: PERRL, EOM intact ENT: dentition normal - Neck Neck: Present: normal ROM - Respiratory Respiratory effort: normal Respiratory: bilateral: diminished - Cardiovascular Rhythm: regular Heart Sounds: Present: S1 & S2. Absent: systolic murmur, diastolic murmur - Extremities Extremities: no ischemia, pulses intact, pulses symmetrical, No edema, normal temperature, normal color Peripheral Pulses: within normal limits - Abdominal General gastrointestinal: soft, non-tender, non-distended, normal bowel sounds - Integumentary Integumentary: Present: warm, dry - Psychiatric Psychiatric: cooperative - Neurologic Neurologic: other (With cough/gag, pupils equal and reactive, slight movement to bilateral upper extremities) - Allied Health Allied health notes reviewed: nursing, RT, social work - Constitutional Vitals: Temp Pulse Resp BP Pulse Ox 99.3 F 105 H 26 H 97/53 99 05/09/22 12:00 05/09/22 13:00 05/09/22 13:00 05/09/22 13:00 05/09/22 13:00 General appearance: Present: no acute distress, cachectic, other (trach/) HEART Score - HEART Score Troponin: Troponin T 0.031 ng/mL (0.00-0.029) H 04/08/22 17:47 Results - Labs CBC & Chem 7: 05/05/22 04:23 05/05/22 04:23 Labs: Laboratory Last Values WBC 14.4 K/mm3 (4.5-11.0) H 05/05/22 04:23 RBC 2.75 M/mm3 (3.65-5.03) L 05/05/22 04:23 Hgb 8.2 gm/dl (11.8-15.2) L 05/05/22 04:23 Hct 25.2 % (35.5-45.6) L 05/05/22 04:23 MCV 92 fl (84-94) 05/05/22 04:23 MCH 30 pg (28-32) 05/05/22 04:23 MCHC 32 % (32-34) 05/05/22 04:23 RDW 14.4 % (13.2-15.2) 05/05/22 04:23 Plt Count 320 K/mm3 (140-440) 05/05/22 04:23 Lymph % (Auto) 4.3 % (13.4-35.0) L 04/07/22 03:51 Morrill % (Auto) 8.8 % (0.0-7.3) H 04/07/22 03:51 Eos % (Auto) 0.1 % (0.0-4.3) 04/07/22 03:51 Baso % (Auto) 0.2 % (0.0-1.8) 04/07/22 03:51 Lymph # (Auto) 0.6 K/mm3 (1.2-5.4) L 04/07/22 03:51 Morrill # (Auto) 1.3 K/mm3 (0.0-0.8) H 04/07/22 03:51 Eos # (Auto) 0.0 K/mm3 (0.0-0.4) 04/07/22 03:51 Baso # (Auto) 0.0 K/mm3 (0.0-0.1) 04/07/22 03:51 Add Manual Diff Complete 04/02/22 19:39 Total Counted 100 04/02/22 19:39 Seg Neutrophils % 86.6 % (40.0-70.0) H 04/07/22 03:51 Seg Neuts % (Manual) 94.0 % (40.0-70.0) H 04/02/22 19:39 Band Neutrophils % 0 % 04/02/22 19:39 Lymphocytes % (Manual) 1.0 % (13.4-35.0) L 04/02/22 19:39 Reactive Lymphs % (Man) 0 % 04/02/22 19:39 Monocytes % (Manual) 5.0 % (0.0-7.3) 04/02/22 19:39 Eosinophils % (Manual) 0 % (0.0-4.3) 04/02/22 19:39 Basophils % (Manual) 0 % (0.0-1.8) 04/02/22 19:39 Metamyelocytes % 0 % 04/02/22 19:39 Myelocytes % 0 % 04/02/22 19:39 Promyelocytes % 0 % 04/02/22 19:39 Blast Cells % 0 % 04/02/22 19:39 Nucleated RBC % Not Reportable 04/02/22 19:39 Seg Neutrophils # 12.7 K/mm3 (1.8-7.7) H 04/07/22 03:51 Seg Neutrophils # Man 13.4 K/mm3 (1.8-7.7) H 04/02/22 19:39 Band Neutrophils # 0.0 K/mm3 04/02/22 19:39 Lymphocytes # (Manual) 0.1 K/mm3 (1.2-5.4) L 04/02/22 19:39 Abs React Lymphs (Man) 0.0 K/mm3 04/02/22 19:39 Monocytes # (Manual) 0.7 K/mm3 (0.0-0.8) 04/02/22 19:39 Eosinophils # (Manual) 0.0 K/mm3 (0.0-0.4) 04/02/22 19:39 Basophils # (Manual) 0.0 K/mm3 (0.0-0.1) 04/02/22 19:39 Metamyelocytes # 0.0 K/mm3 04/02/22 19:39 Myelocytes # 0.0 K/mm3 04/02/22 19:39 Promyelocytes # 0.0 K/mm3 04/02/22 19:39 Blast Cells # 0.0 K/mm3 04/02/22 19:39 WBC Morphology Not Reportable 04/02/22 19:39 Hypersegmented Neuts Not Reportable 04/02/22 19:39 Hyposegmented Neuts Not Reportable 04/02/22 19:39 Hypogranular Neuts Not Reportable 04/02/22 19:39 Smudge Cells Not Reportable 04/02/22 19:39 Toxic Granulation Not Reportable 04/02/22 19:39 Toxic Vacuolation Not Reportable 04/02/22 19:39 Dohle Bodies Not Reportable 04/02/22 19:39 Pelger-Huet Anomaly Not Reportable 04/02/22 19:39 Terry Rods Not Reportable 04/02/22 19:39 Platelet Estimate Consistent w auto 04/02/22 19:39 Clumped Platelets Not Reportable 04/02/22 19:39 Plt Clumps, EDTA Not Reportable 04/02/22 19:39 Large Platelets Not Reportable 04/02/22 19:39 Giant Platelets Not Reportable 04/02/22 19:39 Platelet Satelliting Not Reportable 04/02/22 19:39 Plt Morphology Comment Not Reportable 04/02/22 19:39 RBC Morphology Not Reportable 04/02/22 19:39 Dimorphic RBCs Not Reportable 04/02/22 19:39 Polychromasia Not Reportable 04/02/22 19:39 Hypochromasia Not Reportable 04/02/22 19:39 Poikilocytosis Not Reportable 04/02/22 19:39 Anisocytosis 1+ 04/02/22 19:39 Microcytosis Not Reportable 04/02/22 19:39 Macrocytosis Not Reportable 04/02/22 19:39 Spherocytes Not Reportable 04/02/22 19:39 Pappenheimer Bodies Not Reportable 04/02/22 19:39 Sickle Cells Not Reportable 04/02/22 19:39 Target Cells Not Reportable 04/02/22 19:39 Tear Drop Cells Not Reportable 04/02/22 19:39 Ovalocytes Not Reportable 04/02/22 19:39 Helmet Cells Not Reportable 04/02/22 19:39 Patricio-[place] Bodies Not Reportable 04/02/22 19:39 Cutler Rings Not Reportable 04/02/22 19:39 Spalding Cells Not Reportable 04/02/22 19:39 Bite Cells Not Reportable 04/02/22 19:39 Crenated Cell Not Reportable 04/02/22 19:39 Elliptocytes Not Reportable 04/02/22 19:39 Acanthocytes (Spur) Not Reportable 04/02/22 19:39 Rouleaux Not Reportable 04/02/22 19:39 Hemoglobin C Crystals Not Reportable 04/02/22 19:39 Schistocytes Not Reportable 04/02/22 19:39 Malaria parasites Not Reportable 04/02/22 19:39 [place] Bodies Not Reportable 04/02/22 19:39 Hem Pathologist Commnt No 04/02/22 19:39 PT 13.6 Sec. (12.2-14.9) 04/13/22 04:30 INR 0.94 (0.87-1.13) 04/13/22 04:30 APTT 35.7 Sec. (24.2-36.6) 04/07/22 03:51 ABG pH 7.383 pH Units (7.350-7.450) 05/04/22 09:36 ABG pCO2 75.0 mm Hg 05/04/22 09:36 ABG pO2 55.4 mm Hg (80.0-90.0) L 05/04/22 09:36 ABG HCO3 43.7 mmol/L (20.0-26.0) H 05/04/22 09:36 ABG O2 Saturation 87.4 % (95.0-99.0) L 05/04/22 09:36 ABG O2 Content 11.0 (0.0-44) 05/04/22 09:36 ABG Base Excess 16.1 mmol/L (-2.0-3.0) H 05/04/22 09:36 ABG Hemoglobin 9.1 gm/dl (14.0-18.0) L 05/04/22 09:36 ABG Carboxyhemoglobin 1.5 % (0.0-5.0) 05/04/22 09:36 ABG Methemoglobin 0.4 % (0.0-1.5) 05/04/22 09:36 Oxyhemoglobin 85.7 % (95.0-99.0) L 05/04/22 09:36 FiO2 30 % 05/04/22 09:36 Sodium 137 mmol/L (137-145) 05/05/22 04:23 Potassium 4.3 mmol/L (3.6-5.0) 05/05/22 04:23 Chloride 91.3 mmol/L (98-107) L 05/05/22 04:23 Carbon Dioxide 38 mmol/L (22-30) H 05/05/22 04:23 Anion Gap 12 mmol/L 05/05/22 04:23 BUN 23 mg/dL (9-20) H 05/05/22 04:23 Creatinine < 0.2 mg/dL (0.8-1.3) L 05/05/22 04:23 Estimated GFR > 60 ml/min 05/05/22 04:23 BUN/Creatinine Ratio 115 % 05/05/22 04:23 Glucose 128 mg/dL (75-100) H 05/05/22 04:23 POC Glucose 107 mg/dL (70-105) H 05/08/22 21:48 Lactic Acid 1.90 mmol/L (0.7-2.0) 04/02/22 19:39 Calcium 8.8 mg/dL (8.4-10.2) 05/05/22 04:23 Phosphorus 3.40 mg/dL (2.5-4.5) 05/05/22 04:23 Magnesium 1.90 mg/dL (1.7-2.3) 05/05/22 04:23 Total Bilirubin 0.80 mg/dL (0.1-1.2) 04/02/22 19:39 AST 15 units/L (5-40) 04/02/22 19:39 ALT 9 units/L (7-56) 04/02/22 19:39 Alkaline Phosphatase 43 units/L (35-129) 04/02/22 19:39 Total Creatine Kinase 46 units/L (55-170) L 04/08/22 17:47 CK-MB (CK-2) 2.6 ng/mL (0.0-4.0) 04/08/22 17:47 CK-MB (CK-2) Rel Index 5.6 (0-4) H 04/08/22 17:47 Troponin T 0.031 ng/mL (0.00-0.029) H 04/08/22 17:47 C-Reactive Protein 31.60 mg/dL (0.00-1.30) H 04/04/22 04:18 Total Protein 4.6 g/dL (6.3-8.2) L 04/02/22 19:39 Albumin 2.7 g/dL (3.9-5) L 04/02/22 19:39 Albumin/Globulin Ratio 1.4 % 04/02/22 19:39 Triglycerides 80 mg/dL (2-149) 04/02/22 19:39 Cholesterol 94 mg/dL (50-199) 04/02/22 19:39 LDL Cholesterol Direct 27 mg/dL (50-130) L 04/02/22 19:39 HDL Cholesterol 47 mg/dL (40-59) 04/02/22 19:39 Cholesterol/HDL Ratio 2.00 % 04/02/22 19:39 Procalcitonin 0.08 ng/mL (<0.15) 04/04/22 04:18 Urine Color Aracely (Yellow) 04/05/22 17:45 Urine Turbidity Cloudy (Clear) 04/05/22 17:45 Urine pH 5.0 (5.0-7.0) 04/05/22 17:45 Ur Specific [place] 1.021 (1.003-1.030) 04/05/22 17:45 Urine Protein 30 mg/dl mg/dL (Negative) 04/05/22 17:45 Urine Glucose (UA) Neg mg/dL (Negative) 04/05/22 17:45 Urine Ketones Tr mg/dL (Negative) 04/05/22 17:45 Urine Blood Sm (Negative) 04/05/22 17:45 Urine Nitrite Neg (Negative) 04/05/22 17:45 Urine Bilirubin Neg (Negative) 04/05/22 17:45 Urine Urobilinogen < 2.0 mg/dL (<2.0) 04/05/22 17:45 Ur Leukocyte Esterase Tr (Negative) 04/05/22 17:45 Urine WBC (Auto) 8.0 /HPF (0.0-6.0) H 04/05/22 17:45 Urine RBC (Auto) 3.0 /HPF (0.0-6.0) 04/05/22 17:45 U Epithel Cells (Auto) 2.0 /HPF (0-13.0) 04/05/22 17:45 Urine Bacteria (Auto) 1+ /HPF (Negative) 04/02/22 Unknown Hyaline Casts 1 /LPF 04/05/22 17:45 Urine Mucus 3+ /HPF 04/05/22 17:45 Nasal Screen MRSA (PCR) Negative (Negative) 04/05/22 12:37 Vancomycin Trough 6.0 ug/mL (5.0-20.0) 04/05/22 18:53 Coronavirus (PCR) Negative (Negative) 04/07/22 14:52 Perez/IV: Voiding Method Condom Catheter Active Medications - Current Medications Current Medications: Generic Name Dose Route Start Last Admin Trade Name Freq PRN Reason Stop Dose Admin Acetaminophen 650 mg 04/02/22 23:53 05/04/22 21:37 Acetaminophen 325 Mg Tab PO 650 mg Q6H PRN Administration Pain MILD(1-3)/Fever >100.5/FAITH Acetylcysteine 200 mg 05/04/22 20:00 05/09/22 08:24 Acetylcysteine 20% 200 Mg/1 Ml *For Inhalation Use* INHALATION Not Given Q12HRT SEGUNDO Albuterol 2.5 mg 05/05/22 20:00 05/09/22 08:21 Albuterol 2.5 Mg/3 Ml Nebu IH 2.5 mg Q12HRT SEGUNDO Administration Bisacodyl 10 mg 04/07/22 09:44 04/12/22 10:06 Bisacodyl 10 Mg Rect Supp [place] 10 mg QDAY PRN Administration Constipation Docusate Sodium 100 mg 04/28/22 10:00 05/09/22 10:31 Docusate Sodium 100 Mg/10 Ml Oral Liqd FEEDTUBE Not Given BID SEGUNDO Famotidine 20 mg 04/06/22 10:00 05/09/22 10:30 Famotidine 20 Mg Tab FEEDTUBE 20 mg BID SEGUNDO Administration Fentanyl 50 mcg 04/04/22 15:56 05/07/22 22:15 Fentanyl 100 Mcg/2 Ml Inj IV 50 mcg Q2HR PRN Administration For CPOT of greater than 3 Heparin Sodium (Porcine) 5,000 unit 04/03/22 06:00 05/09/22 06:26 Heparin 5,000 Unit/1 Ml Vial SUB-Q 5,000 unit Q8HR SEGUNDO Administration Insulin Human Lispro 0 unit 05/05/22 06:00 05/09/22 06:25 Insulin Lispro 100 Unit/Ml SUB-Q Not Given Q8HR [facility] Protocol Magnesium Hydroxide 30 ml 04/02/22 23:53 Magnesium Hydroxide (Mom) Oral Liqd Udc PO Q4H PRN Constipation Metoprolol Tartrate 12.5 mg 05/03/22 13:00 05/09/22 13:25 Metoprolol Tartrate 25 Mg Tab FEEDTUBE Not Given Q6HR SEGUNDO Ondansetron HCl 4 mg 04/02/22 23:53 Ondansetron 4 Mg/2 Ml Inj IV Q8H PRN Nausea And Vomiting Polyethylene Glycol 17 gm 04/08/22 10:00 05/09/22 10:31 Polyethylene Glycol 3350 17 Gm Powder PO Not Given QDAY SEGUNDO Quetiapine Fumarate 50 mg 04/28/22 10:00 05/09/22 10:30 Quetiapine 25 Mg Tab FEEDTUBE 50 mg BID SEGUNDO Administration Senna 17.6 mg 04/28/22 10:00 05/09/22 10:31 Sennosides Oral Liqd 8.8 Mg/5 Ml Oral Liqd FEEDTUBE Not Given Q12HR SEGUNDO Sodium Chloride 10 ml 04/03/22 10:00 05/09/22 10:31 Sodium Chloride 0.9% 10 Ml Flush Syringe IV 10 ml BID SEGUNDO Administration Sodium Chloride 10 ml 04/02/22 23:53 Sodium Chloride 0.9% 10 Ml Flush Syringe IV PRN PRN LINE FLUSH Nutrition/Malnutrition Assess - Dietary Evaluation Nutrition/Malnutrition Findings: Nutrition Notes Start: 04/04/22 13:13 Freq: Status: Active Protocol: Document 05/04/22 12:27 COLLEEN (Rec: 05/04/22 12:46 COLLEEN [id number]) Nutrition Notes Initial or Follow up Reassessment Current Diagnosis Coronary Artery Disease, Decubitus(Pressure Ulcer), Sepsis,Respiratory Failure, Malnutrition Other Pertinent Diagnosis HCAP, ALS, Broncopneumonia, NSTEMI, Cardiomyopathy, ... Current Diet TF-Vital AF 1.2 Inderjit @ 50 ml/hr (since D 04/15). Labs/Tests 05/03: Na 134, Cl 90.5, CO2 38 , BUN 21, Crea <0.2, Glu 126. Pertinent Medications 05/04: Nutritionally unremarkable. Height 5 ft 4.8 in Weight 46.8 kg [place] Body Weight (kg) 61.27 BMI 17.2 Weight change and time frame No body weight change reported in 4 weeks. Weight Status Underweight Subjective/Other Information RD consult for routine F/U on TF tolerance/continuation. TF continues as prescribed, and well tolerated, according to RN notes. Pt continues on Mechanical ventilation, O2 saturation @ 96%, according to Physical Assessment Histroy notes. Pt will be discharged home with family; awaiting home- Vent setup; family declined SNF placement, according to Progress notes. Percent of energy/protein needs met: Prescribed TF-Vital AF 1.2 Inderjit @ 50 ml/hr provides for energy/protein needs (1,450 Kcal/91 g) during LOS, 98% Kcal; 100% AA. Burn Absent Trauma Absent GI Symptoms Constipation Difficulty In Swallowing,Chewing Food Allergy No Skin Integrity/Comment Sacral open wound. Current % PO Other Minimum of two criteria No #1 Nutrition Diagnosis Inadequate oral intake Diagnosis Progress(for reassessment Continues documentation) Is patient on ventilator? Yes Is Patient Ambulatory and/or Out of Bed No REE-([facility]-confined to bed) [phone] Calculation Used for Recommendations [facility] Additional Notes Protein: 1.2-2 g/Kg IBW; 73- 122 g/day. Fluids: 1 ml/Kcal, or as per MD. Nutrition Intervention Nutrition Support: Continue TF-Vital AF 1.2 Inderjit @ 50 ml/hr. Flush: 80 ml water Q 4 hr, or as per MD. Kcal 1,450 Protein (gm) 91 Carbohydrates (gm) 134 Fat (gm) 65 Fluid (mL) 980 Fiber (gm) 6 % RDI: 98% Kcal; 100% AA. Goal #1 Provide at least 75% of energy /protein needs through Enteral Feeding during LOS. Follow-Up By: 05/11/22 Additional Comments Continue monitoring TF tolerance and BM.
--- NOTE | 2022-05-09 15:06 | Progress Note ---
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 Protein calorie malnutrition Acute Bronchopneumonia HCAP Hypotension NSTEMI Hypernatremia Acute Metabolic Encephalopathy H/o Amyotrophic Lateral Sclerosis Nonverbal at Baseline Thrombocytopenia Protein Caloric Malnutrition Constipation - continue family ventilator and patient care training - continue daily SAT and SBT assessment as tolerated while in hospital - tentative discharge tuesday / tuesday - follow routine labs and address - optimize nutritional status - continue care as below otherwise; - bronchoscopy if develops large volume atelectasis - continue mucomyst nebs for thick tenacious secretions - continue scheduled CPT - continue Seroquel for anxiolysis / delirium - continue bronchodilators with pulmonary hygiene per RT - continue to wean supplemental oxygen for target O2 sat's > 90% acutely - VAP bundle addressed - continue lung protective strategies - wean per pulmonary driven protocols otherwise - continue accuchecks with glycemic control per SSI (While critically ill target blood glucose of 140-180 mg/dL; avoid hypoglycemia) - sedation prn for target RASS 0 to -1 - avoid nephrotoxins, renally dose all medications - continue to avoid benzodiazepine's, reduce the possibility of delirium - AB's per ID rec's - prn analgesia per CPOT score - Maintenance of sleep-wake cycle, avoid delirium - continue enteral nutritional support at goal rate as tolerated - G.I. & VTE prophylaxis - PT/OT/ROM exercises - continue mobility protocols for pressure ulcer prophylaxis - Monitor hemodynamics closely - continue other care per attending / other consultants - discharge planning ongoing concurrently COVID SPECIFIC INTERVENTIONS - test pending .... Re-evaluate in am & prn CONDITION: CRITICAL PROGNOSIS: GUARDED CODE STATUS: FULL CODE The high probability of a clinically significant, sudden or life-threatening deterioration of the [respiratory, cardiovascular & neurologic] system(s) required my full and direct attention, intervention and personal management. The aggregate critical care time was [32] minutes without overlap. Time includes spent on; [x] Data Review and interpretation [x] Patient assessment and monitoring of vital signs [x] Documentation [x] Medication orders and management Subjective Date of service: 05/09/22 Principal diagnosis: Ac and ch hypercapnic and hypoxemic Resp Failure; ALS; HCAP; Sepsis; NSTEMI Interval history: Patient is seen today for: Acute and chronic hypercapnic and hypoxemic Respiratory Failure; ALS; HCAP; Sepsis; NSTEMI; AMS; Hypernatremia; Thrombocytopenia; Protein Caloric Malnutrition; Constipation Seen and examined at bedside; 24hour events reviewed; nursing and respiratory care staff consulted; no adverse overnight events reported to me; resting peacefully in bed; remains on MVS; family education progressing well; no emesis or overt aspiration; still failing SBT's very quickly Objective Vital Signs - 12hr 05/09/22 05/09/22 05/09/22 04:00 05:00 05:06 Temperature 97.8 F Pulse Rate 108 H 107 H Pulse Rate [ 108 H From Monitor] Respiratory 15 14 Rate Blood Pressure 92/62 101/64 O2 Sat by Pulse 96 100 Oximetry O2 Sat by Pulse 97 Oximetry [ Assessment] 05/09/22 05/09/22 05/09/22 05:45 06:00 07:00 Temperature Pulse Rate 109 H 114 H 115 H Pulse Rate [ From Monitor] Respiratory 26 H 38 H Rate Blood Pressure 101/64 124/67 115/68 O2 Sat by Pulse 97 99 Oximetry O2 Sat by Pulse Oximetry [ Assessment] 05/09/22 05/09/22 05/09/22 08:00 08:23 09:00 Temperature 99.8 F H Pulse Rate 107 H 112 H 110 H Pulse Rate [ 114 H From Monitor] Respiratory 14 17 Rate Blood Pressure 97/57 97/57 103/69 O2 Sat by Pulse 98 95 95 Oximetry O2 Sat by Pulse Oximetry [ Assessment] 05/09/22 05/09/22 05/09/22 10:00 11:00 11:25 Temperature Pulse Rate 112 H 118 H 109 H Pulse Rate [ From Monitor] Respiratory 11 L 12 Rate Blood Pressure 111/68 96/60 96/60 O2 Sat by Pulse 94 97 99 Oximetry O2 Sat by Pulse Oximetry [ Assessment] 05/09/22 05/09/22 12:00 13:00 Temperature 99.3 F Pulse Rate 105 H 105 H Pulse Rate [ 113 H From Monitor] Respiratory 14 26 H Rate Blood Pressure 93/56 97/53 O2 Sat by Pulse 100 99 Oximetry O2 Sat by Pulse Oximetry [ Assessment] Constitutional: no acute distress, alert, other (resting in bed with mildly increased respiratory effort at rest) Eyes: non-icteric ENT: oropharynx moist, other (+ midline tracheostomy) Neck: supple, no lymphadenopathy, no JVD Effort: mildly labored Ascultation: Bilateral: rhonchi Percussion: Bilateral: not dull Cardiovascular: regular rate and rhythm, other (S1,S2) Gastrointestinal: normoactive bowel sounds, soft, non-tender, non-distended Integumentary: normal Extremities: no cyanosis, no edema, pink and warm, pulses normal Neurologic: pupils equal and round, other (functional quadriplegia) Psychiatric: mood appropriate, affect normal, other CBC and BMP: 05/09/22 15:15 05/09/22 15:15 ABG, PT/INR, D-dimer: ABG ABG pH 7.383 pH Units (7.350-7.450) 05/04/22 09:36 ABG pCO2 75.0 mm Hg 05/04/22 09:36 ABG pO2 55.4 mm Hg (80.0-90.0) L 05/04/22 09:36 ABG O2 Saturation 87.4 % (95.0-99.0) L 05/04/22 09:36 PT/INR, D-dimer PT 13.6 Sec. (12.2-14.9) 04/13/22 04:30 INR 0.94 (0.87-1.13) 04/13/22 04:30 Abnormal lab findings: Abnormal Labs 04/02/22 04/02/22 04/02/22 19:39 19:39 19:39 WBC 14.3 H RBC Hgb Hct MCV 96 H Plt Count 104 L Lymph % (Auto) [place] % (Auto) Lymph # (Auto) [place] # (Auto) Seg Neutrophils % Seg Neuts % (Manual) 94.0 H Lymphocytes % (Manual) 1.0 L Seg Neutrophils # Seg Neutrophils # Man 13.4 H Lymphocytes # (Manual) 0.1 L PT 15.9 H INR 1.14 H ABG pH ABG pO2 ABG HCO3 ABG O2 Saturation ABG Base Excess ABG Hemoglobin Oxyhemoglobin Sodium 151 H Potassium Chloride Carbon Dioxide BUN Creatinine 0.5 L Glucose POC Glucose Calcium 8.2 L Phosphorus Magnesium 1.60 L Total Creatine Kinase CK-MB (CK-2) Rel Index Troponin T 0.048 H C-Reactive Protein Total Protein 4.6 L Albumin 2.7 L LDL Cholesterol Direct 27 L Urine WBC (Auto) 04/02/22 04/03/22 04/03/22 19:42 05:14 06:30 WBC RBC Hgb Hct MCV Plt Count Lymph % (Auto) [place] % (Auto) Lymph # (Auto) [place] # (Auto) Seg Neutrophils % Seg Neuts % (Manual) Lymphocytes % (Manual) Seg Neutrophils # Seg Neutrophils # Man Lymphocytes # (Manual) PT INR ABG pH 7.471 H 7.496 H ABG pO2 47.8 L 91.0 H ABG HCO3 30.6 H ABG O2 Saturation 94.4 L ABG Base Excess 6.2 H ABG Hemoglobin 11.0 L 12.8 L Oxyhemoglobin 93.1 L Sodium 149 H Potassium 3.4 L Chloride Carbon Dioxide BUN Creatinine 0.4 L Glucose POC Glucose Calcium Phosphorus Magnesium Total Creatine Kinase CK-MB (CK-2) Rel Index Troponin T C-Reactive Protein Total Protein Albumin LDL Cholesterol Direct Urine WBC (Auto) 04/04/22 04/04/22 04/04/22 04:18 04:18 05:50 WBC 11.8 H RBC Hgb Hct MCV Plt Count 132 L Lymph % (Auto) [place] % (Auto) Lymph # (Auto) [place] # (Auto) Seg Neutrophils % Seg Neuts % (Manual) Lymphocytes % (Manual) Seg Neutrophils # Seg Neutrophils # Man Lymphocytes # (Manual) PT INR ABG pH 7.517 H ABG pO2 115.5 H ABG HCO3 29.9 H ABG O2 Saturation ABG Base Excess 6.7 H ABG Hemoglobin 12.3 L Oxyhemoglobin Sodium Potassium 3.5 L Chloride Carbon Dioxide 31 H BUN Creatinine 0.3 L Glucose 153 H POC Glucose Calcium Phosphorus 1.40 L Magnesium 1.50 L Total Creatine Kinase CK-MB (CK-2) Rel Index Troponin T C-Reactive Protein 31.60 H Total Protein Albumin LDL Cholesterol Direct Urine WBC (Auto) 04/05/22 04/05/22 04/05/22 02:50 05:25 11:28 WBC RBC Hgb Hct MCV Plt Count Lymph % (Auto) [place] % (Auto) Lymph # (Auto) [place] # (Auto) Seg Neutrophils % Seg Neuts % (Manual) Lymphocytes % (Manual) Seg Neutrophils # Seg Neutrophils # Man Lymphocytes # (Manual) PT INR ABG pH 7.455 H ABG pO2 50.7 L ABG HCO3 30.5 H ABG O2 Saturation 89.4 L ABG Base Excess 5.9 H ABG Hemoglobin 11.8 L Oxyhemoglobin 88.2 L Sodium Potassium Chloride Carbon Dioxide 32 H BUN Creatinine 0.2 L Glucose 110 H POC Glucose 124 H Calcium 7.9 L Phosphorus Magnesium Total Creatine Kinase CK-MB (CK-2) Rel Index Troponin T C-Reactive Protein Total Protein Albumin LDL Cholesterol Direct Urine WBC (Auto) 04/05/22 04/05/22 04/06/22 17:45 Unknown 04:00 WBC RBC 3.55 L Hgb 11.1 L 11.5 L Hct 33.2 L 35.1 L MCV Plt Count 113 L 114 L Lymph % (Auto) [place] % (Auto) Lymph # (Auto) [place] # (Auto) Seg Neutrophils % Seg Neuts % (Manual) Lymphocytes % (Manual) Seg Neutrophils # Seg Neutrophils # Man Lymphocytes # (Manual) PT INR ABG pH ABG pO2 ABG HCO3 ABG O2 Saturation ABG Base Excess ABG Hemoglobin Oxyhemoglobin Sodium Potassium Chloride Carbon Dioxide BUN Creatinine Glucose POC Glucose Calcium Phosphorus Magnesium Total Creatine Kinase CK-MB (CK-2) Rel Index Troponin T C-Reactive Protein Total Protein Albumin LDL Cholesterol Direct Urine WBC (Auto) 8.0 H 04/06/22 04/06/22 04/07/22 04:00 08:30 00:04 WBC RBC Hgb Hct MCV Plt Count Lymph % (Auto) [place] % (Auto) Lymph # (Auto) [place] # (Auto) Seg Neutrophils % Seg Neuts % (Manual) Lymphocytes % (Manual) Seg Neutrophils # Seg Neutrophils # Man Lymphocytes # (Manual) PT INR ABG pH ABG pO2 60.8 L ABG HCO3 30.5 H ABG O2 Saturation 93.3 L ABG Base Excess 4.9 H ABG Hemoglobin 12.4 L Oxyhemoglobin 92.1 L Sodium Potassium 3.0 L Chloride Carbon Dioxide BUN Creatinine < 0.2 L Glucose 130 H POC Glucose 117 H Calcium 8.1 L Phosphorus Magnesium Total Creatine Kinase CK-MB (CK-2) Rel Index Troponin T C-Reactive Protein Total Protein Albumin LDL Cholesterol Direct Urine WBC (Auto) 04/07/22 04/07/22 04/07/22 03:51 03:51 03:51 WBC 14.6 H RBC 3.57 L Hgb 11.1 L Hct 33.2 L MCV Plt Count 118 L Lymph % (Auto) 4.3 L [place] % (Auto) 8.8 H Lymph # (Auto) 0.6 L [place] # (Auto) 1.3 H Seg Neutrophils % 86.6 H Seg Neuts % (Manual) Lymphocytes % (Manual) Seg Neutrophils # 12.7 H Seg Neutrophils # Man Lymphocytes # (Manual) PT 15.2 H INR ABG pH ABG pO2 ABG HCO3 ABG O2 Saturation ABG Base Excess ABG Hemoglobin Oxyhemoglobin Sodium 133 L Potassium Chloride 96.0 L Carbon Dioxide 31 H BUN Creatinine 0.2 L Glucose 130 H POC Glucose Calcium 8.0 L Phosphorus Magnesium Total Creatine Kinase CK-MB (CK-2) Rel Index Troponin T C-Reactive Protein Total Protein Albumin LDL Cholesterol Direct Urine WBC (Auto) 04/07/22 04/07/22 04/08/22 04:25 09:10 04:49 WBC 16.1 H RBC 3.54 L Hgb 10.9 L Hct 33.3 L MCV Plt Count Lymph % (Auto) [place] % (Auto) Lymph # (Auto) [place] # (Auto) Seg Neutrophils % Seg Neuts % (Manual) Lymphocytes % (Manual) Seg Neutrophils # Seg Neutrophils # Man Lymphocytes # (Manual) PT INR ABG pH ABG pO2 71.0 L 63.4 L ABG HCO3 31.5 H 40.0 H ABG O2 Saturation 94.9 L ABG Base Excess 5.9 H 13.6 H ABG Hemoglobin 11.3 L 9.0 L Oxyhemoglobin 93.6 L Sodium Potassium Chloride Carbon Dioxide BUN Creatinine Glucose POC Glucose Calcium Phosphorus Magnesium Total Creatine Kinase CK-MB (CK-2) Rel Index Troponin T C-Reactive Protein Total Protein Albumin LDL Cholesterol Direct Urine WBC (Auto) 04/08/22 04/08/22 04/08/22 04:49 09:53 10:25 WBC RBC Hgb Hct MCV Plt Count Lymph % (Auto) [place] % (Auto) Lymph # (Auto) [place] # (Auto) Seg Neutrophils % Seg Neuts % (Manual) Lymphocytes % (Manual) Seg Neutrophils # Seg Neutrophils # Man Lymphocytes # (Manual) PT INR ABG pH ABG pO2 ABG HCO3 34.7 H ABG O2 Saturation ABG Base Excess 7.9 H ABG Hemoglobin 11.0 L Oxyhemoglobin Sodium 136 L Potassium Chloride 97.7 L Carbon Dioxide 33 H BUN Creatinine 0.2 L Glucose 155 H POC Glucose Calcium Phosphorus Magnesium Total Creatine Kinase CK-MB (CK-2) Rel Index Troponin T 0.030 H C-Reactive Protein Total Protein Albumin LDL Cholesterol Direct Urine WBC (Auto) 04/08/22 04/08/22 04/08/22 11:19 17:47 18:06 WBC RBC Hgb Hct MCV Plt Count Lymph % (Auto) [place] % (Auto) Lymph # (Auto) [place] # (Auto) Seg Neutrophils % Seg Neuts % (Manual) Lymphocytes % (Manual) Seg Neutrophils # Seg Neutrophils # Man Lymphocytes # (Manual) PT INR ABG pH ABG pO2 ABG HCO3 ABG O2 Saturation ABG Base Excess ABG Hemoglobin Oxyhemoglobin Sodium Potassium Chloride Carbon Dioxide BUN Creatinine Glucose POC Glucose 121 H Calcium Phosphorus Magnesium Total Creatine Kinase 31 L 46 L CK-MB (CK-2) Rel Index 6.4 H 5.6 H Troponin T 0.030 H 0.031 H C-Reactive Protein Total Protein Albumin LDL Cholesterol Direct Urine WBC (Auto) 04/09/22 04/09/22 04/09/22 04:35 04:35 11:24 WBC 11.5 H RBC 3.16 L Hgb 9.9 L Hct 29.4 L MCV Plt Count 131 L Lymph % (Auto) [place] % (Auto) Lymph # (Auto) [place] # (Auto) Seg Neutrophils % Seg Neuts % (Manual) Lymphocytes % (Manual) Seg Neutrophils # Seg Neutrophils # Man Lymphocytes # (Manual) PT INR ABG pH ABG pO2 ABG HCO3 ABG O2 Saturation ABG Base Excess ABG Hemoglobin Oxyhemoglobin Sodium Potassium Chloride 97.1 L Carbon Dioxide 35 H BUN Creatinine < 0.2 L Glucose 145 H POC Glucose 147 H Calcium Phosphorus Magnesium Total Creatine Kinase CK-MB (CK-2) Rel Index Troponin T C-Reactive Protein Total Protein Albumin LDL Cholesterol Direct Urine WBC (Auto) 04/09/22 04/09/22 04/09/22 13:00 17:32 23:48 WBC RBC Hgb Hct MCV Plt Count Lymph % (Auto) [place] % (Auto) Lymph # (Auto) [place] # (Auto) Seg Neutrophils % Seg Neuts % (Manual) Lymphocytes % (Manual) Seg Neutrophils # Seg Neutrophils # Man Lymphocytes # (Manual) PT INR ABG pH ABG pO2 66.6 L ABG HCO3 38.2 H ABG O2 Saturation 94.4 L ABG Base Excess 10.7 H ABG Hemoglobin 10.7 L Oxyhemoglobin 92.8 L Sodium Potassium Chloride Carbon Dioxide BUN Creatinine Glucose POC Glucose 143 H 114 H Calcium Phosphorus Magnesium Total Creatine Kinase CK-MB (CK-2) Rel Index Troponin T C-Reactive Protein Total Protein Albumin LDL Cholesterol Direct Urine WBC (Auto) 04/10/22 04/10/22 04/10/22 04:48 04:48 05:34 WBC RBC 2.91 L Hgb 9.1 L Hct 27.7 L MCV 95 H Plt Count Lymph % (Auto) [place] % (Auto) Lymph # (Auto) [place] # (Auto) Seg Neutrophils % Seg Neuts % (Manual) Lymphocytes % (Manual) Seg Neutrophils # Seg Neutrophils # Man Lymphocytes # (Manual) PT INR ABG pH ABG pO2 ABG HCO3 ABG O2 Saturation ABG Base Excess ABG Hemoglobin Oxyhemoglobin Sodium Potassium Chloride 95.7 L Carbon Dioxide 38 H BUN Creatinine < 0.2 L Glucose 118 H POC Glucose 127 H Calcium Phosphorus Magnesium Total Creatine Kinase CK-MB (CK-2) Rel Index Troponin T C-Reactive Protein Total Protein Albumin LDL Cholesterol Direct Urine WBC (Auto) 04/10/22 04/11/22 04/11/22 23:10 04:15 04:15 WBC 17.2 H RBC 2.98 L Hgb 9.2 L Hct 27.9 L MCV Plt Count Lymph % (Auto) [place] % (Auto) Lymph # (Auto) [place] # (Auto) Seg Neutrophils % Seg Neuts % (Manual) Lymphocytes % (Manual) Seg Neutrophils # Seg Neutrophils # Man Lymphocytes # (Manual) PT INR ABG pH ABG pO2 ABG HCO3 ABG O2 Saturation ABG Base Excess ABG Hemoglobin Oxyhemoglobin Sodium Potassium Chloride 96.1 L Carbon Dioxide 35 H BUN Creatinine < 0.2 L Glucose 138 H POC Glucose 106 H Calcium 8.3 L Phosphorus Magnesium Total Creatine Kinase CK-MB (CK-2) Rel Index Troponin T C-Reactive Protein Total Protein Albumin LDL Cholesterol Direct Urine WBC (Auto) 04/11/22 04/11/22 04/11/22 05:31 13:18 16:20 WBC RBC Hgb Hct MCV Plt Count Lymph % (Auto) [place] % (Auto) Lymph # (Auto) [place] # (Auto) Seg Neutrophils % Seg Neuts % (Manual) Lymphocytes % (Manual) Seg Neutrophils # Seg Neutrophils # Man Lymphocytes # (Manual) PT INR ABG pH ABG pO2 57.8 L ABG HCO3 40.5 H ABG O2 Saturation 90.6 L ABG Base Excess 12.6 H ABG Hemoglobin 10.5 L Oxyhemoglobin 89.0 L Sodium Potassium Chloride Carbon Dioxide BUN Creatinine Glucose POC Glucose 129 H 132 H Calcium Phosphorus Magnesium Total Creatine Kinase CK-MB (CK-2) Rel Index Troponin T C-Reactive Protein Total Protein Albumin LDL Cholesterol Direct Urine WBC (Auto) 04/11/22 04/11/22 04/12/22 17:29 23:17 04:00 WBC 17.4 H RBC 2.96 L Hgb 9.0 L Hct 28.0 L MCV 95 H Plt Count Lymph % (Auto) [place] % (Auto) Lymph # (Auto) [place] # (Auto) Seg Neutrophils % Seg Neuts % (Manual) Lymphocytes % (Manual) Seg Neutrophils # Seg Neutrophils # Man Lymphocytes # (Manual) PT INR ABG pH ABG pO2 ABG HCO3 ABG O2 Saturation ABG Base Excess ABG Hemoglobin Oxyhemoglobin Sodium Potassium Chloride Carbon Dioxide BUN Creatinine Glucose POC Glucose 125 H 151 H Calcium Phosphorus Magnesium Total Creatine Kinase CK-MB (CK-2) Rel Index Troponin T C-Reactive Protein Total Protein Albumin LDL Cholesterol Direct Urine WBC (Auto) 04/12/22 04/12/22 04/12/22 04:00 17:03 23:39 WBC RBC Hgb Hct MCV Plt Count Lymph % (Auto) [place] % (Auto) Lymph # (Auto) [place] # (Auto) Seg Neutrophils % Seg Neuts % (Manual) Lymphocytes % (Manual) Seg Neutrophils # Seg Neutrophils # Man Lymphocytes # (Manual) PT INR ABG pH ABG pO2 ABG HCO3 ABG O2 Saturation ABG Base Excess ABG Hemoglobin Oxyhemoglobin Sodium Potassium Chloride 97.4 L Carbon Dioxide 37 H BUN Creatinine < 0.2 L Glucose 127 H POC Glucose 106 H 107 H Calcium Phosphorus Magnesium Total Creatine Kinase CK-MB (CK-2) Rel Index Troponin T C-Reactive Protein Total Protein Albumin LDL Cholesterol Direct Urine WBC (Auto) 04/13/22 04/13/22 04/13/22 04:30 04:30 17:39 WBC 14.1 H RBC 2.66 L Hgb 8.4 L Hct 25.5 L MCV 96 H Plt Count Lymph % (Auto) [place] % (Auto) Lymph # (Auto) [place] # (Auto) Seg Neutrophils % Seg Neuts % (Manual) Lymphocytes % (Manual) Seg Neutrophils # Seg Neutrophils # Man Lymphocytes # (Manual) PT INR ABG pH ABG pO2 ABG HCO3 ABG O2 Saturation ABG Base Excess ABG Hemoglobin Oxyhemoglobin Sodium Potassium Chloride 93.9 L Carbon Dioxide 39 H BUN Creatinine < 0.2 L Glucose POC Glucose 134 H Calcium Phosphorus 1.90 L Magnesium Total Creatine Kinase CK-MB (CK-2) Rel Index Troponin T C-Reactive Protein Total Protein Albumin LDL Cholesterol Direct Urine WBC (Auto) 04/14/22 04/14/22 04/14/22 05:03 05:03 09:10 WBC 15.6 H RBC 3.02 L Hgb 9.3 L Hct 28.8 L MCV 95 H Plt Count Lymph % (Auto) [place] % (Auto) Lymph # (Auto) [place] # (Auto) Seg Neutrophils % Seg Neuts % (Manual) Lymphocytes % (Manual) Seg Neutrophils # Seg Neutrophils # Man Lymphocytes # (Manual) PT INR ABG pH ABG pO2 66.9 L ABG HCO3 44.5 H ABG O2 Saturation ABG Base Excess 17.2 H ABG Hemoglobin 8.1 L Oxyhemoglobin 94.8 L Sodium Potassium Chloride 93.8 L Carbon Dioxide 42 H* BUN Creatinine < 0.2 L Glucose 117 H POC Glucose Calcium Phosphorus Magnesium Total Creatine Kinase CK-MB (CK-2) Rel Index Troponin T C-Reactive Protein Total Protein Albumin LDL Cholesterol Direct Urine WBC (Auto) 04/15/22 04/15/22 04/16/22 04:44 04:44 04:16 WBC 13.0 H 12.6 H RBC 3.19 L 3.09 L Hgb 9.6 L 9.5 L Hct 30.2 L 29.1 L MCV 95 H Plt Count 456 H Lymph % (Auto) [place] % (Auto) Lymph # (Auto) [place] # (Auto) Seg Neutrophils % Seg Neuts % (Manual) Lymphocytes % (Manual) Seg Neutrophils # Seg Neutrophils # Man Lymphocytes # (Manual) PT INR ABG pH ABG pO2 ABG HCO3 ABG O2 Saturation ABG Base Excess ABG Hemoglobin Oxyhemoglobin Sodium Potassium Chloride 95.5 L Carbon Dioxide 37 H BUN Creatinine < 0.2 L Glucose POC Glucose Calcium Phosphorus Magnesium Total Creatine Kinase CK-MB (CK-2) Rel Index Troponin T C-Reactive Protein Total Protein Albumin LDL Cholesterol Direct Urine WBC (Auto) 04/16/22 04/16/22 04/16/22 04:16 05:00 14:00 WBC RBC Hgb Hct MCV Plt Count Lymph % (Auto) [place] % (Auto) Lymph # (Auto) [place] # (Auto) Seg Neutrophils % Seg Neuts % (Manual) Lymphocytes % (Manual) Seg Neutrophils # Seg Neutrophils # Man Lymphocytes # (Manual) PT INR ABG pH 7.324 L ABG pO2 55.6 L ABG HCO3 45.3 H ABG O2 Saturation 87.1 L ABG Base Excess 16.6 H ABG Hemoglobin 8.6 L Oxyhemoglobin 85.7 L Sodium Potassium Chloride 97.6 L Carbon Dioxide 36 H BUN Creatinine < 0.2 L Glucose 109 H POC Glucose 120 H Calcium Phosphorus Magnesium Total Creatine Kinase CK-MB (CK-2) Rel Index Troponin T C-Reactive Protein Total Protein Albumin LDL Cholesterol Direct Urine WBC (Auto) 04/17/22 04/17/22 04/17/22 04:36 04:36 04:57 WBC 14.4 H RBC 3.08 L Hgb 9.4 L Hct 29.0 L MCV Plt Count Lymph % (Auto) [place] % (Auto) Lymph # (Auto) [place] # (Auto) Seg Neutrophils % Seg Neuts % (Manual) Lymphocytes % (Manual) Seg Neutrophils # Seg Neutrophils # Man Lymphocytes # (Manual) PT INR ABG pH ABG pO2 ABG HCO3 ABG O2 Saturation ABG Base Excess ABG Hemoglobin Oxyhemoglobin Sodium Potassium Chloride 95.9 L Carbon Dioxide 39 H BUN Creatinine < 0.2 L Glucose 140 H POC Glucose 137 H Calcium 8.3 L Phosphorus Magnesium Total Creatine Kinase CK-MB (CK-2) Rel Index Troponin T C-Reactive Protein Total Protein Albumin LDL Cholesterol Direct Urine WBC (Auto) 04/17/22 04/17/22 04/18/22 09:15 18:01 04:20 WBC 11.2 H RBC 3.00 L Hgb 9.3 L Hct 28.6 L MCV 95 H Plt Count Lymph % (Auto) [place] % (Auto) Lymph # (Auto) [place] # (Auto) Seg Neutrophils % Seg Neuts % (Manual) Lymphocytes % (Manual) Seg Neutrophils # Seg Neutrophils # Man Lymphocytes # (Manual) PT INR ABG pH 7.345 L ABG pO2 ABG HCO3 48.2 H ABG O2 Saturation ABG Base Excess 19.2 H ABG Hemoglobin 9.7 L Oxyhemoglobin Sodium Potassium Chloride Carbon Dioxide BUN Creatinine Glucose POC Glucose 129 H Calcium Phosphorus Magnesium Total Creatine Kinase CK-MB (CK-2) Rel Index Troponin T C-Reactive Protein Total Protein Albumin LDL Cholesterol Direct Urine WBC (Auto) 04/18/22 04/18/22 04/18/22 04:20 17:35 23:50 WBC RBC Hgb Hct MCV Plt Count Lymph % (Auto) [place] % (Auto) Lymph # (Auto) [place] # (Auto) Seg Neutrophils % Seg Neuts % (Manual) Lymphocytes % (Manual) Seg Neutrophils # Seg Neutrophils # Man Lymphocytes # (Manual) PT INR ABG pH ABG pO2 ABG HCO3 ABG O2 Saturation ABG Base Excess ABG Hemoglobin Oxyhemoglobin Sodium Potassium Chloride 96.8 L Carbon Dioxide 43 H* BUN 22 H Creatinine < 0.2 L Glucose 137 H POC Glucose 128 H 123 H Calcium 8.2 L Phosphorus Magnesium Total Creatine Kinase CK-MB (CK-2) Rel Index Troponin T C-Reactive Protein Total Protein Albumin LDL Cholesterol Direct Urine WBC (Auto) 04/19/22 04/19/22 04/19/22 04:08 04:08 08:50 WBC 16.8 H RBC 3.18 L Hgb 9.8 L Hct 30.1 L MCV 95 H Plt Count Lymph % (Auto) [place] % (Auto) Lymph # (Auto) [place] # (Auto) Seg Neutrophils % Seg Neuts % (Manual) Lymphocytes % (Manual) Seg Neutrophils # Seg Neutrophils # Man Lymphocytes # (Manual) PT INR ABG pH ABG pO2 56.0 L ABG HCO3 47.1 H ABG O2 Saturation 93.3 L ABG Base Excess 20.1 H ABG Hemoglobin 8.0 L Oxyhemoglobin 91.8 L Sodium Potassium Chloride 96.2 L Carbon Dioxide 40 H BUN 24 H Creatinine < 0.2 L Glucose 125 H POC Glucose Calcium 8.3 L Phosphorus Magnesium Total Creatine Kinase CK-MB (CK-2) Rel Index Troponin T C-Reactive Protein Total Protein Albumin LDL Cholesterol Direct Urine WBC (Auto) 04/19/22 04/20/22 04/20/22 12:02 00:40 04:49 WBC 14.7 H RBC 3.36 L Hgb 10.3 L Hct 32.0 L MCV 95 H Plt Count Lymph % (Auto) [place] % (Auto) Lymph # (Auto) [place] # (Auto) Seg Neutrophils % Seg Neuts % (Manual) Lymphocytes % (Manual) Seg Neutrophils # Seg Neutrophils # Man Lymphocytes # (Manual) PT INR ABG pH ABG pO2 ABG HCO3 ABG O2 Saturation ABG Base Excess ABG Hemoglobin Oxyhemoglobin Sodium Potassium Chloride Carbon Dioxide BUN Creatinine Glucose POC Glucose 124 H 140 H Calcium Phosphorus Magnesium Total Creatine Kinase CK-MB (CK-2) Rel Index Troponin T C-Reactive Protein Total Protein Albumin LDL Cholesterol Direct Urine WBC (Auto) 04/20/22 04/20/22 04/21/22 05:36 11:40 04:05 WBC RBC Hgb Hct MCV Plt Count Lymph % (Auto) [place] % (Auto) Lymph # (Auto) [place] # (Auto) Seg Neutrophils % Seg Neuts % (Manual) Lymphocytes % (Manual) Seg Neutrophils # Seg Neutrophils # Man Lymphocytes # (Manual) PT INR ABG pH ABG pO2 ABG HCO3 ABG O2 Saturation ABG Base Excess ABG Hemoglobin Oxyhemoglobin Sodium Potassium Chloride 93.4 L Carbon Dioxide 40 H BUN 25 H Creatinine < 0.2 L Glucose 122 H POC Glucose 125 H 128 H Calcium Phosphorus Magnesium Total Creatine Kinase CK-MB (CK-2) Rel Index Troponin T C-Reactive Protein Total Protein Albumin LDL Cholesterol Direct Urine WBC (Auto) 04/21/22 04/22/22 04/22/22 10:31 05:03 05:03 WBC 12.6 H 12.7 H RBC 2.83 L 2.96 L Hgb 8.6 L 9.0 L Hct 26.9 L 28.0 L MCV 95 H 95 H Plt Count Lymph % (Auto) [place] % (Auto) Lymph # (Auto) [place] # (Auto) Seg Neutrophils % Seg Neuts % (Manual) Lymphocytes % (Manual) Seg Neutrophils # Seg Neutrophils # Man Lymphocytes # (Manual) PT INR ABG pH ABG pO2 ABG HCO3 ABG O2 Saturation ABG Base Excess ABG Hemoglobin Oxyhemoglobin Sodium Potassium Chloride 93.9 L Carbon Dioxide 43 H* BUN 23 H Creatinine < 0.2 L Glucose 137 H POC Glucose Calcium Phosphorus Magnesium Total Creatine Kinase CK-MB (CK-2) Rel Index Troponin T C-Reactive Protein Total Protein Albumin LDL Cholesterol Direct Urine WBC (Auto) 04/22/22 04/23/22 04/24/22 08:34 09:40 04:29 WBC 14.4 H RBC 2.74 L Hgb 8.4 L Hct 25.7 L MCV Plt Count Lymph % (Auto) [place] % (Auto) Lymph # (Auto) [place] # (Auto) Seg Neutrophils % Seg Neuts % (Manual) Lymphocytes % (Manual) Seg Neutrophils # Seg Neutrophils # Man Lymphocytes # (Manual) PT INR ABG pH ABG pO2 54.1 L 56.8 L ABG HCO3 48.5 H 49.0 H ABG O2 Saturation 92.1 L 90.9 L ABG Base Excess 20.9 H 20.8 H ABG Hemoglobin 9.0 L 8.4 L Oxyhemoglobin 90.6 L 89.5 L Sodium Potassium Chloride Carbon Dioxide BUN Creatinine Glucose POC Glucose Calcium Phosphorus Magnesium Total Creatine Kinase CK-MB (CK-2) Rel Index Troponin T C-Reactive Protein Total Protein Albumin LDL Cholesterol Direct Urine WBC (Auto) 04/24/22 04/25/22 04/26/22 04:29 09:00 04:22 WBC RBC 2.88 L Hgb 8.9 L Hct 26.8 L MCV Plt Count Lymph % (Auto) [place] % (Auto) Lymph # (Auto) [place] # (Auto) Seg Neutrophils % Seg Neuts % (Manual) Lymphocytes % (Manual) Seg Neutrophils # Seg Neutrophils # Man Lymphocytes # (Manual) PT INR ABG pH 7.457 H ABG pO2 66.7 L ABG HCO3 42.6 H ABG O2 Saturation ABG Base Excess 15.3 H ABG Hemoglobin 8.8 L Oxyhemoglobin 94.1 L Sodium Potassium Chloride 90.7 L Carbon Dioxide 40 H BUN Creatinine < 0.2 L Glucose 133 H POC Glucose Calcium Phosphorus Magnesium Total Creatine Kinase CK-MB (CK-2) Rel Index Troponin T C-Reactive Protein Total Protein Albumin LDL Cholesterol Direct Urine WBC (Auto) 04/26/22 04/29/22 04/29/22 04:22 04:18 04:18 WBC 13.5 H RBC 2.96 L Hgb 8.9 L Hct 27.7 L MCV Plt Count Lymph % (Auto) [place] % (Auto) Lymph # (Auto) [place] # (Auto) Seg Neutrophils % Seg Neuts % (Manual) Lymphocytes % (Manual) Seg Neutrophils # Seg Neutrophils # Man Lymphocytes # (Manual) PT INR ABG pH ABG pO2 ABG HCO3 ABG O2 Saturation ABG Base Excess ABG Hemoglobin Oxyhemoglobin Sodium Potassium Chloride 93.2 L 95.2 L Carbon Dioxide 37 H 38 H BUN Creatinine < 0.2 L < 0.2 L Glucose 114 H 116 H POC Glucose Calcium Phosphorus Magnesium Total Creatine Kinase CK-MB (CK-2) Rel Index Troponin T C-Reactive Protein Total Protein Albumin LDL Cholesterol Direct Urine WBC (Auto) 05/02/22 05/03/22 05/03/22 04:29 04:02 04:02 WBC 12.9 H 12.3 H RBC 2.82 L 2.83 L Hgb 8.4 L 8.4 L Hct 26.2 L 26.0 L MCV Plt Count Lymph % (Auto) [place] % (Auto) Lymph # (Auto) [place] # (Auto) Seg Neutrophils % Seg Neuts % (Manual) Lymphocytes % (Manual) Seg Neutrophils # Seg Neutrophils # Man Lymphocytes # (Manual) PT INR ABG pH ABG pO2 ABG HCO3 ABG O2 Saturation ABG Base Excess ABG Hemoglobin Oxyhemoglobin Sodium 134 L Potassium Chloride 90.5 L Carbon Dioxide 38 H BUN 21 H Creatinine < 0.2 L Glucose 126 H POC Glucose Calcium Phosphorus Magnesium Total Creatine Kinase CK-MB (CK-2) Rel Index Troponin T C-Reactive Protein Total Protein Albumin LDL Cholesterol Direct Urine WBC (Auto) 05/03/22 05/03/22 05/04/22 12:02 17:42 09:36 WBC RBC Hgb Hct MCV Plt Count Lymph % (Auto) [place] % (Auto) Lymph # (Auto) [place] # (Auto) Seg Neutrophils % Seg Neuts % (Manual) Lymphocytes % (Manual) Seg Neutrophils # Seg Neutrophils # Man Lymphocytes # (Manual) PT INR ABG pH ABG pO2 55.4 L ABG HCO3 43.7 H ABG O2 Saturation 87.4 L ABG Base Excess 16.1 H ABG Hemoglobin 9.1 L Oxyhemoglobin 85.7 L Sodium Potassium Chloride Carbon Dioxide BUN Creatinine Glucose POC Glucose 139 H 131 H Calcium Phosphorus Magnesium Total Creatine Kinase CK-MB (CK-2) Rel Index Troponin T C-Reactive Protein Total Protein Albumin LDL Cholesterol Direct Urine WBC (Auto) 05/04/22 05/04/22 05/05/22 17:08 23:10 04:23 WBC 14.4 H RBC 2.75 L Hgb 8.2 L Hct 25.2 L MCV Plt Count Lymph % (Auto) [place] % (Auto) Lymph # (Auto) [place] # (Auto) Seg Neutrophils % Seg Neuts % (Manual) Lymphocytes % (Manual) Seg Neutrophils # Seg Neutrophils # Man Lymphocytes # (Manual) PT INR ABG pH ABG pO2 ABG HCO3 ABG O2 Saturation ABG Base Excess ABG Hemoglobin Oxyhemoglobin Sodium Potassium Chloride Carbon Dioxide BUN Creatinine Glucose POC Glucose 124 H 115 H Calcium Phosphorus Magnesium Total Creatine Kinase CK-MB (CK-2) Rel Index Troponin T C-Reactive Protein Total Protein Albumin LDL Cholesterol Direct Urine WBC (Auto) 05/05/22 05/05/22 05/06/22 04:23 21:39 05:13 WBC RBC Hgb Hct MCV Plt Count Lymph % (Auto) [place] % (Auto) Lymph # (Auto) [place] # (Auto) Seg Neutrophils % Seg Neuts % (Manual) Lymphocytes % (Manual) Seg Neutrophils # Seg Neutrophils # Man Lymphocytes # (Manual) PT INR ABG pH ABG pO2 ABG HCO3 ABG O2 Saturation ABG Base Excess ABG Hemoglobin Oxyhemoglobin Sodium Potassium Chloride 91.3 L Carbon Dioxide 38 H BUN 23 H Creatinine < 0.2 L Glucose 128 H POC Glucose 141 H 136 H Calcium Phosphorus Magnesium Total Creatine Kinase CK-MB (CK-2) Rel Index Troponin T C-Reactive Protein Total Protein Albumin LDL Cholesterol Direct Urine WBC (Auto) 05/07/22 05/07/22 05/08/22 05:29 22:15 05:48 WBC RBC Hgb Hct MCV Plt Count Lymph % (Auto) [place] % (Auto) Lymph # (Auto) [place] # (Auto) Seg Neutrophils % Seg Neuts % (Manual) Lymphocytes % (Manual) Seg Neutrophils # Seg Neutrophils # Man Lymphocytes # (Manual) PT INR ABG pH ABG pO2 ABG HCO3 ABG O2 Saturation ABG Base Excess ABG Hemoglobin Oxyhemoglobin Sodium Potassium Chloride Carbon Dioxide BUN Creatinine Glucose POC Glucose 125 H 142 H 122 H Calcium Phosphorus Magnesium Total Creatine Kinase CK-MB (CK-2) Rel Index Troponin T C-Reactive Protein Total Protein Albumin LDL Cholesterol Direct Urine WBC (Auto) 05/08/22 05/08/22 14:04 21:48 WBC RBC Hgb Hct MCV Plt Count Lymph % (Auto) [place] % (Auto) Lymph # (Auto) [place] # (Auto) Seg Neutrophils % Seg Neuts % (Manual) Lymphocytes % (Manual) Seg Neutrophils # Seg Neutrophils # Man Lymphocytes # (Manual) PT INR ABG pH ABG pO2 ABG HCO3 ABG O2 Saturation ABG Base Excess ABG Hemoglobin Oxyhemoglobin Sodium Potassium Chloride Carbon Dioxide BUN Creatinine Glucose POC Glucose 112 H 107 H Calcium Phosphorus Magnesium Total Creatine Kinase CK-MB (CK-2) Rel Index Troponin T C-Reactive Protein Total Protein Albumin LDL Cholesterol Direct Urine WBC (Auto) Allied health notes reviewed: RT
[2022-05-09 15:23] LABS: Basophils % (Auto) 0.3 % (0.0-1.8); Eosinophils # (Auto) 0.1 K/mm3 (0.0-0.4); Eosinophils % (Auto) 0.6 % (0.0-4.3); Hematocrit 23.2 % (35.5-45.6); Hemoglobin 7.7 gm/dl (11.8-15.2); Lymphocytes # (Auto) 0.9 K/mm3 (1.2-5.4); Lymphocytes % (Auto) 8.1 % (13.4-35.0); Mean Corpuscular HGB Conc 33 % (32-34); Mean Corpuscular Volume 89 fl (84-94); Monocytes # (Auto) 0.5 K/mm3 (0.0-0.8); Monocytes % (Auto) 4.9 % (0.0-7.3); Platelet Count 292 K/mm3 (140-440); Red Blood Count 2.61 M/mm3 (3.65-5.03); Red Cell Distribution Width 14.7 % (13.2-15.2)
[2022-05-09 15:43] LABS: Blood Urea Nitrogen 20 mg/dL (9-20); Calcium 8.8 mg/dL (8.4-10.2); Hemolysis Index 5
[2022-05-09 15:49] LABS: BUN/Creatinine Ratio 100
[2022-05-09] MEDS ORDERED: ALBUTEROL 2.5 MG/3 ML NEBU IH ONE (16:28)
[2022-05-10] MEDS: INSULIN LISPRO 100 UNIT/ML SUB-Q SCH ×3 (06:06→21:06)
[2022-05-10] MEDS: METOPROLOL TARTRATE 25 MG TAB FEEDTUBE SCH ×4 (06:06→23:27)
[2022-05-10] MEDS: HEPARIN 5,000 UNIT/1 ML VIAL SUB-Q SCH ×3 (06:06→21:25)
[2022-05-10] MEDS ORDERED: EPINEPHrine RACEMIC 2.25% 0.5ML NEBU IH ONE (09:07)
[2022-05-10] MEDS: FAMOTIDINE 20 MG TAB FEEDTUBE SCH ×2 (09:30→21:25)
[2022-05-10] MEDS: QUEtiapine 25 MG TAB FEEDTUBE SCH ×2 (09:30→21:25)
[2022-05-10] MEDS: SENNOSIDES ORAL LIQD 8.8 MG/5 ML ORAL LIQD FEEDTUBE SCH ×2 (09:36→21:25)
[2022-05-10] MEDS: DOCUSATE SODIUM 100 MG/10 ML ORAL LIQD FEEDTUBE SCH ×2 (09:36→21:25)
[2022-05-10] MEDS: POLYETHYLENE GLYCOL 3350 17 GM POWDER PO SCH (09:36)
[2022-05-10] MEDS: ALBUTEROL 2.5 MG/3 ML NEBU IH SCH ×2 (09:47→19:38)
[2022-05-10] MEDS: ACETYLCYSTEINE 20% 200 MG/1 ML *FOR INHALATION USE INHALATION SCH ×2 (09:48→19:38)
--- NOTE | 2022-05-10 11:27 | Progress Note ---
<ALEK SMITH - Last Filed: 05/10/22 19:36> Assessment and Plan Assessment and plan: This is a 57-year-old male with known history of ALS, recently hospitalized at [facility] admitted for acute hypoxemic respiratory failure 2/2 pneumonia Hospital Course to Date: 04/03: Intubated and Sedated on versed gtt, RASS-5. CT head/brain noted with no acute intracranial abnormality. Plan to initiated precededx gtt and wean off versed for a RASS goal of 0 to -2. CT chect also reviewed, findings are most consistent with acute bronchopneumonia. Continue empiric IV Abx, vent adjustment per CCM. ID consulted. Continue to F/U on cultures. Titrate pressor for MAP above 65. Medical records requested from [facility]. 04/04: Remains stable on the vent, easily arousable on precedex gtt, not following commands. Plan for SAT/SBT today. PRN analgesia for CPOT greater than 3. Fevers improved, cultures and procal pending. Continue current IV abx, ID also consulted. Remains on low dose pressors, titrate pressors for a MAP above 65. 04/05: Long discussion with family with use of translation phone with CCM regarding goals of care. Family to have meeting amongst themselves and informed care team of decisions. Fentanyl drip added for respiratory distress. Remains on Precedex drip. Antibiotics per ID. Given 2L NS bolus with levophed gtt 04/06: Family discussion with Dr. Grayson for goals of care. CXR shows possible mucus plug, continue CPT as FiO2 is being able to be weaned. Potassium repleted. Weaning fentnyl gtt. 04/07: Ultrasound guided thoracentesis today scheduled, inadequate amount of pleural effusion on so not completed. Patient was started on Levophed overnight which was weaned off this morning however had to be started twice a day. Remains on fentanyl and Precedex. Cardiology discontinued BB and ACEi in setting of hypotension. 04/08: COVID-19 PCR negative. Routine EEG ordered by cardiology which showed ST changes, cardiology aware. They will continue conservative treatment. Repeat troponins 0.030 which are less than admit of 0.048. Dr. Grayson had a long discu ssion with with the use of bingo manager today at bedside and has not made a decision regarding goals of care. Possible consult to surgery for trach/PEG early next week. Continues to require Precedex and fentanyl drip for sedation. Carvedilol/lisinopril discontinued as patient is continuously on Levophed. 04/09: No acute events reported overnight, remains on fentanyl, Precedex and Levophed drips. Dr. Grayson and Dr. Pineda updated family at bedside extensively today. Consulted surgery for trach/PEG. COVID-19 PCR negative. 04/10: Patient noted to have desaturation episodes, FiO2 increased slightly to 35%. Will add Mucomyst. Remains on fentanyl and Precedex. Off of Levophed. Surgery consulted for trach/PEG. 04/11: FiO2 increased over night likely related to hypoxia, continues on fent gtt, weaning precedex gtt as he is also on Seroquel. Will d/w CCM re scheduled or prn oxycodone 04/12: Periods of hypoxia and tachycardia this am. Symptoms improved post deep suction and tracheal lavage, Repeat CXR noted with no significant change. Continue CPT and mucomyst. Plan for possible trach/PEG tomorrow by general surgery. 04/13: Remains stable on the vent. Patient is wake and tracking but does not follow simple commands. No report of hypoxia from overnight, continue CPT and mucomyst. Plan for track and PEG today by General Surgery. Plan for LTAC placement post procedure, case management to arrange. 04/14: VIRGILIO overnight, Trach and PEG postponed for today by general surgery. Plan for LTAC placement post procedure, case management to arrange. 04/15: S/p Trach and PEG. Up to 80% FiO2 this am, this am CXR noted suggesting possible mucus plug. D/W [facility] plan for bronch today. Continue CPT and mucomyst. Plan of care thoroughly discussed with patient's and son (who translated for ) at the bedside. Per , job development specialist had already discussed the risks and benefits of the procedure yesterday. She verbalized understanding and agreed with procedure and current care plan, consent signed. Okay to use PEG-tube for meds this am, resume TF once okay by general Surgery. Case management to arrange LTAC placement. 04/16: s/p Bronchocopy by [facility]. FiO2 down to 60%, angela 10 this am. This am CXR with moderate improvement. Continue CPT and mucomyst, wean Fio2 as tolerated for SPO2 above 92%. Patient is tolerating TF, advance to goal as ordered. Possible LTAC placement, case management to arrange. 04/17: VIRGILIO overnight. remains stable on the vent, recent CXR and this am ABG n oted. Continue CPT and mucomyst, wean Fio2 as tolerated. 04/18: Remains stable on the vent, Fio2 down to 55% and peep of 8 this am. Continue to wean as tolerated, CPT, and mucomyst. Dsiposition- LTAC placement, case management to arrange. 04/19: No acute events overnight. Continue current management. 04/20: No acute events overnight, continue current management 04/21: Patient had chest ultrasound which showed trace pleural effusions, chest x-ray improved after the addition of Mucomyst yesterday. FiO2 55-65%. No acute events overnight. more interactive today. 04/22: Seroquel changed to BID, FiO2 was increased to 60%. RT increased FIO2 to 100 d/t desaturation into the 80s but was able to wean down. CCM increased PEEP and decreased FiO2. 04/23: CCM increase PEEP, no acute events reported overnight. 04/24: Spoke to RT about decreasing FiO2 as tolerated. No acute events reported overnight. Continue supportive management. 04/25: Weaning as tolerated. no acute events overnight. RT to attempt CPAP again today 04/26: VIRGILIO overnight. Patient failed PSV trial again this morning. Continue s upportive management and daily PST trial. 04/27: Patient failed PSV trial again this am due to episodes of apnea. Continue daily PSV trial as tolerated. Case management to arrange LTAC placement 04/28: Remains stable. Continue daily PSV trial as tolerated. Awaiting approval for LTAC 04/29: VIRGILIO overnight. Continue daily PSV trial. Awaiting approval for LTAC, case management to arrange. 04/30: Patient continue to fail PSV trial. Per case management patient was denied for LTAC, now possible SNF placement. Case managemen to arrange. Continue supportive measures and daily PSV trial as tolerated. 05/01: VIRGILIO overnight. Continue supportive measures and daily PSV trial as tolerated. Possible SNF placement. 05/02: Continue supportive measures and daily PSV trial as tolerated. Possible SNF placement, case management to arrange 05/03: no acute events overnight, CM arranging home vent setup. Family declined SNF. 05/04: RN/RT reports thin secretions, increase in FiO2 for decreased oxygen on ABG. No acute events overnight. 05/05: Family scheduled for teaching session today at 2pm. Increase in FiO2 overnight to 45%. Awaiting vent setup for home care for ventilation secondary to tracheostomy. 05/06: No acute events reported overnight, T-max 100.9. FiO2 45%. Awaiting discharge home with vent when teaching is completed 05/07: No acute events reported overnight, Awaiting discharge home with vent when teaching is completed 05/08: No acute events reported overnight, Awaiting discharge home with vent when teaching is completed 05/09: no acute events reported overnight. Ordered routine labs today. Family continuing with vent training. Anticipate discharge home this week possibly on Tuesday. 05/10: VIRGILIO overnight. Continue current supportive measures and family training at the bedside. Plan for discharge home tomorrow. Assessment and Plan #Acute Hypoxemic Respiratory Failure 12/09 #Acute Bronchopneumonia - Intubated in the ED on 04/02 for hypoxemia and airway protection - 04/14 s/p Trach and PEG - 04/15 CXR reviewed complete opacity of the righ side suggesting possible mucus plug. See report for detail - 04/15 s/p Bronchoscopy by [facility] - Vent setting: PRVC-40%,10,14,400 - No ABG this am - [facility] consulted, appreciate recommendations - Multiple failed vent wean, now - Continue daily PSVT as tolerated - Continue CPT and mucomyst per [facility] - VAP bundle addressed - Aspiration precaution HOB above 30 - PRN ABG and CXR per [facility] - Continue SPO2 monitoring for SPO2 goal above 92% #Sepsis #Acute Bronchopneumonia #HCAP #Leukocytosis - CXR shows moderate to large layering effusion on the right, see report for full detail - CT chest also reviewed, findings are most consistent with acute bronchopneumonia. See report for full detail - Patient was recent hospitalized for pneumonia - Patient remains afebrile - Tracheal aspirate with Pseudomonas aeruginosa, Enterobacter aerogenes - 04/02 blood culture with bacillus species, 04/05 blood culture NGTD - Patient completed [id number] of Cefepine - CRP 31.6, procalcitonin 0.08 - MRSA negative - Daily CBC monitor - ID signed off #Suspect ischemic coronary artery disease #h/o cardiomyopathy - Low BP probably due to hypovolemia vs sedation vs infectious process - s/p Levophed gtt - Elevated troponin possibly a type II troponin leak - Cardiology consulted, appreciated recommendations - Echocardiogram shows ejection fraction of 40 to 45%, mild global hypokinesis of left ventricle - Continue BB - Continue blood pressure monitor per protocol - Maintain MAP above 65 - On heparin SubQ #H/o Amyotrophic Lateral Sclerosis #Acute Metabolic Encephalopathy-resolved #Nonverbal at Baseline - Presented with AMS, per family patient is nonverbal at baseline but responsive - CT head/Brain with no acute intracranial process - Off sedation. Awake and calm - Continue Seroquel per CCM - Avoid benzodiazepine to reduce the possibility of delirium - PRN analgesia for CPOT greater than 3 - Maintenance of sleep-wake cycle #Thrombocytopenia-resolved - Continue to trend plt - On heparin subQ - Monitor for s/s of any active bleeding #Hypernatremia-resolved - Monitor and replace electrolytes as needed - Continue to trend BMP #Protein Caloric Malnutrition - Albumin 2.7, Total protein 4.6 - 04/15 s/p EPG-Tube placement - Continue enteral nutrition - Nutrition consulted #Constipation - Noted on CXR and KUB - last BM 04/27 - Continue BR #GI/DVT Prophylaxis - PPI- Pepcid - Heparin SubQ - SCDs to bilateral lower extremities while in bed #Advance Care Planning - Disease education data, care plan, diagnoses, and prognosis were discussed patient's , Carly Lopez, and patient daughter, Kaylee Warren, who translated for #[phone]. They reported that patient was following at [facility] for his ALS and during recent hospitalization at [facility] they were told nothing else can be offered to patient at this time and patient was discharge home with home hospice and PO morphine. First hospice visit was on , however, patient became unresponsive yesterday and they brought in to the hospital. - Goal of care and code status were also addressed at that time. Family wants to wait for a couple days to see how patient respond to current treatment before making a decision. All questions and concerns were addressed at this time. Patient family acknowledged understanding and agreement with care plan. - Patient remains a FULL CODE status -04/05: Discussion at bedside with interpreting service with Dr. Orjioke and family state they would discuss next steps amongst themselves and let healthcare team know of decisions -04/06: extensive discussion with family ( and son) with Dr. Grayson regarding goals of care -04/08: Extensive discussion with with the use of bingo manager line regarding goals of care; no decision made. Possible consult to surgery for trach/PEG early next week. -04/09: Discussion with and her sister with Dr. Grayson and then with Dr. Pineda-> Consulted surgery for trach/peg -04/30 Insurance Denied LTAC, plan for possible SNF placemenet now. Case management to arrange -Family declined SNF, discharge home with ventilator and HHC tomorrow The high probability of a clinically significant, sudden or life threatening d eterioration of the [multiple] system(s) required my full and direct attention, intervention and personal management. The aggregate critical care time was [60] minutes. This time is in addition to time spent performing reported procedures but includes the following: [x] Data Review and interpretation [x] Patient assessment and monitoring of vital signs [x] Documentation [x] Medication orders and management Disposition Plan: ICU Total Time Spent with Patient (Minutes): 60 History Interval history: Patient seen and examined at the bedside. Stable on the vent, awake and tracking, following simple commands, VSS. VIRGILIO overnight Hospitalist Physical - Physical exam Narrative exam: General appearance: Present: no acute distress, cachectic, other (Trach and on the vent.Awake and tracking, following simple commands) - EENT Eyes: Present: PERRL - Neck Neck: Present: normal ROM - Respiratory Respiratory effort: normal Respiratory: bilateral: rhonchi - Cardiovascular Rhythm: regular Heart Sounds: Present: S1 & S2 - Extremities Extremities: no ischemia, pulses intact, pulses symmetrical Peripheral Pulses: within normal limits - Abdominal General gastrointestinal: soft, non-distended, normal bowel sounds - Integumentary Integumentary: Present: warm, dry - Psychiatric Psychiatric: other (Trach and on the vent. Awake and tracking, following simple commands) - Neurologic Neurologic: other (Trach and on the vent. Awake and tracking, following simple commands) - Allied Health Allied health notes reviewed: nursing, case management - Constitutional Vitals: Temp Pulse Resp BP Pulse Ox 98.8 F 120 H 20 129/88 97 05/10/22 08:00 05/10/22 09:00 05/10/22 09:00 05/10/22 09:00 05/10/22 10:05 HEART Score - HEART Score Troponin: Troponin T 0.031 ng/mL (0.00-0.029) H 04/08/22 17:47 Results - Labs CBC & Chem 7: 05/09/22 15:15 05/09/22 15:15 Labs: Laboratory Last Values WBC 10.7 K/mm3 (4.5-11.0) 05/09/22 15:15 RBC 2.61 M/mm3 (3.65-5.03) L 05/09/22 15:15 Hgb 7.7 gm/dl (11.8-15.2) L 05/09/22 15:15 Hct 23.2 % (35.5-45.6) L 05/09/22 15:15 MCV 89 fl (84-94) 05/09/22 15:15 MCH 30 pg (28-32) 05/09/22 15:15 MCHC 33 % (32-34) 05/09/22 15:15 RDW 14.7 % (13.2-15.2) 05/09/22 15:15 Plt Count 292 K/mm3 (140-440) 05/09/22 15:15 Lymph % (Auto) 8.1 % (13.4-35.0) L 05/09/22 15:15 Osborne % (Auto) 4.9 % (0.0-7.3) 05/09/22 15:15 Eos % (Auto) 0.6 % (0.0-4.3) 05/09/22 15:15 Baso % (Auto) 0.3 % (0.0-1.8) 05/09/22 15:15 Lymph # (Auto) 0.9 K/mm3 (1.2-5.4) L 05/09/22 15:15 Osborne # (Auto) 0.5 K/mm3 (0.0-0.8) 05/09/22 15:15 Eos # (Auto) 0.1 K/mm3 (0.0-0.4) 05/09/22 15:15 Baso # (Auto) 0.0 K/mm3 (0.0-0.1) 05/09/22 15:15 Add Manual Diff Complete 04/02/22 19:39 Total Counted 100 04/02/22 19:39 Seg Neutrophils % 86.1 % (40.0-70.0) H 05/09/22 15:15 Seg Neuts % (Manual) 94.0 % (40.0-70.0) H 04/02/22 19:39 Band Neutrophils % 0 % 04/02/22 19:39 Lymphocytes % (Manual) 1.0 % (13.4-35.0) L 04/02/22 19:39 Reactive Lymphs % (Man) 0 % 04/02/22 19:39 Monocytes % (Manual) 5.0 % (0.0-7.3) 04/02/22 19:39 Eosinophils % (Manual) 0 % (0.0-4.3) 04/02/22 19:39 Basophils % (Manual) 0 % (0.0-1.8) 04/02/22 19:39 Metamyelocytes % 0 % 04/02/22 19:39 Myelocytes % 0 % 04/02/22 19:39 Promyelocytes % 0 % 04/02/22 19:39 Blast Cells % 0 % 04/02/22 19:39 Nucleated RBC % Not Reportable 04/02/22 19:39 Seg Neutrophils # 9.2 K/mm3 (1.8-7.7) H 05/09/22 15:15 Seg Neutrophils # Man 13.4 K/mm3 (1.8-7.7) H 04/02/22 19:39 Band Neutrophils # 0.0 K/mm3 04/02/22 19:39 Lymphocytes # (Manual) 0.1 K/mm3 (1.2-5.4) L 04/02/22 19:39 Abs React Lymphs (Man) 0.0 K/mm3 04/02/22 19:39 Monocytes # (Manual) 0.7 K/mm3 (0.0-0.8) 04/02/22 19:39 Eosinophils # (Manual) 0.0 K/mm3 (0.0-0.4) 04/02/22 19:39 Basophils # (Manual) 0.0 K/mm3 (0.0-0.1) 04/02/22 19:39 Metamyelocytes # 0.0 K/mm3 04/02/22 19:39 Myelocytes # 0.0 K/mm3 04/02/22 19:39 Promyelocytes # 0.0 K/mm3 04/02/22 19:39 Blast Cells # 0.0 K/mm3 04/02/22 19:39 WBC Morphology Not Reportable 04/02/22 19:39 Hypersegmented Neuts Not Reportable 04/02/22 19:39 Hyposegmented Neuts Not Reportable 04/02/22 19:39 Hypogranular Neuts Not Reportable 04/02/22 19:39 Smudge Cells Not Reportable 04/02/22 19:39 Toxic Granulation Not Reportable 04/02/22 19:39 Toxic Vacuolation Not Reportable 04/02/22 19:39 Dohle Bodies Not Reportable 04/02/22 19:39 Pelger-Huet Anomaly Not Reportable 04/02/22 19:39 Terry Rods Not Reportable 04/02/22 19:39 Platelet Estimate Consistent w auto 04/02/22 19:39 Clumped Platelets Not Reportable 04/02/22 19:39 Plt Clumps, EDTA Not Reportable 04/02/22 19:39 Large Platelets Not Reportable 04/02/22 19:39 Giant Platelets Not Reportable 04/02/22 19:39 Platelet Satelliting Not Reportable 04/02/22 19:39 Plt Morphology Comment Not Reportable 04/02/22 19:39 RBC Morphology Not Reportable 04/02/22 19:39 Dimorphic RBCs Not Reportable 04/02/22 19:39 Polychromasia Not Reportable 04/02/22 19:39 Hypochromasia Not Reportable 04/02/22 19:39 Poikilocytosis Not Reportable 04/02/22 19:39 Anisocytosis 1+ 04/02/22 19:39 Microcytosis Not Reportable 04/02/22 19:39 Macrocytosis Not Reportable 04/02/22 19:39 Spherocytes Not Reportable 04/02/22 19:39 Pappenheimer Bodies Not Reportable 04/02/22 19:39 Sickle Cells Not Reportable 04/02/22 19:39 Target Cells Not Reportable 04/02/22 19:39 Tear Drop Cells Not Reportable 04/02/22 19:39 Ovalocytes Not Reportable 04/02/22 19:39 Helmet Cells Not Reportable 04/02/22 19:39 Patricio-Hal[place] Bodies Not Reportable 04/02/22 19:39 [place] Rings Not Reportable 04/02/22 19:39 Cheikh Cells Not Reportable 04/02/22 19:39 Bite Cells Not Reportable 04/02/22 19:39 Crenated Cell Not Reportable 04/02/22 19:39 Elliptocytes Not Reportable 04/02/22 19:39 Acanthocytes (Spur) Not Reportable 04/02/22 19:39 Rouleaux Not Reportable 04/02/22 19:39 Hemoglobin C Crystals Not Reportable 04/02/22 19:39 Schistocytes Not Reportable 04/02/22 19:39 Malaria parasites Not Reportable 04/02/22 19:39 Denton Bodies Not Reportable 04/02/22 19:39 Hem Pathologist Commnt No 04/02/22 19:39 PT 13.6 Sec. (12.2-14.9) 04/13/22 04:30 INR 0.94 (0.87-1.13) 04/13/22 04:30 APTT 35.7 Sec. (24.2-36.6) 04/07/22 03:51 ABG pH 7.383 pH Units (7.350-7.450) 05/04/22 09:36 ABG pCO2 75.0 mm Hg 05/04/22 09:36 ABG pO2 55.4 mm Hg (80.0-90.0) L 05/04/22 09:36 ABG HCO3 43.7 mmol/L (20.0-26.0) H 05/04/22 09:36 ABG O2 Saturation 87.4 % (95.0-99.0) L 05/04/22 09:36 ABG O2 Content 11.0 (0.0-44) 05/04/22 09:36 ABG Base Excess 16.1 mmol/L (-2.0-3.0) H 05/04/22 09:36 ABG Hemoglobin 9.1 gm/dl (14.0-18.0) L 05/04/22 09:36 ABG Carboxyhemoglobin 1.5 % (0.0-5.0) 05/04/22 09:36 ABG Methemoglobin 0.4 % (0.0-1.5) 05/04/22 09:36 Oxyhemoglobin 85.7 % (95.0-99.0) L 05/04/22 09:36 FiO2 30 % 05/04/22 09:36 Sodium 137 mmol/L (137-145) 05/09/22 15:15 Potassium 4.1 mmol/L (3.6-5.0) 05/09/22 15:15 Chloride 92.9 mmol/L (98-107) L 05/09/22 15:15 Carbon Dioxide 40 mmol/L (22-30) H 05/09/22 15:15 Anion Gap 8 mmol/L 05/09/22 15:15 BUN 20 mg/dL (9-20) 05/09/22 15:15 Creatinine < 0.2 mg/dL (0.8-1.3) L 05/09/22 15:15 Estimated GFR > 60 ml/min 05/09/22 15:15 BUN/Creatinine Ratio 100 % 05/09/22 15:15 Glucose 141 mg/dL (75-100) H 05/09/22 15:15 POC Glucose 112 mg/dL (70-105) H 05/09/22 21:15 Lactic Acid 1.90 mmol/L (0.7-2.0) 04/02/22 19:39 Calcium 8.8 mg/dL (8.4-10.2) 05/09/22 15:15 Phosphorus 3.40 mg/dL (2.5-4.5) 05/05/22 04:23 Magnesium 1.90 mg/dL (1.7-2.3) 05/05/22 04:23 Total Bilirubin 0.80 mg/dL (0.1-1.2) 04/02/22 19:39 AST 15 units/L (5-40) 04/02/22 19:39 ALT 9 units/L (7-56) 04/02/22 19:39 Alkaline Phosphatase 43 units/L (35-129) 04/02/22 19:39 Total Creatine Kinase 46 units/L (55-170) L 04/08/22 17:47 CK-MB (CK-2) 2.6 ng/mL (0.0-4.0) 04/08/22 17:47 CK-MB (CK-2) Rel Index 5.6 (0-4) H 04/08/22 17:47 Troponin T 0.031 ng/mL (0.00-0.029) H 04/08/22 17:47 C-Reactive Protein 31.60 mg/dL (0.00-1.30) H 04/04/22 04:18 Total Protein 4.6 g/dL (6.3-8.2) L 04/02/22 19:39 Albumin 2.7 g/dL (3.9-5) L 04/02/22 19:39 Albumin/Globulin Ratio 1.4 % 04/02/22 19:39 Triglycerides 80 mg/dL (2-149) 04/02/22 19:39 Cholesterol 94 mg/dL (50-199) 04/02/22 19:39 LDL Cholesterol Direct 27 mg/dL (50-130) L 04/02/22 19:39 HDL Cholesterol 47 mg/dL (40-59) 04/02/22 19:39 Cholesterol/HDL Ratio 2.00 % 04/02/22 19:39 Procalcitonin 0.08 ng/mL (<0.15) 04/04/22 04:18 Urine Color Aracely (Yellow) 04/05/22 17:45 Urine Turbidity Cloudy (Clear) 04/05/22 17:45 Urine pH 5.0 (5.0-7.0) 04/05/22 17:45 Ur Specific Corinna 1.021 (1.003-1.030) 04/05/22 17:45 Urine Protein 30 mg/dl mg/dL (Negative) 04/05/22 17:45 Urine Glucose (UA) Neg mg/dL (Negative) 04/05/22 17:45 Urine Ketones Tr mg/dL (Negative) 04/05/22 17:45 Urine Blood Sm (Negative) 04/05/22 17:45 Urine Nitrite Neg (Negative) 04/05/22 17:45 Urine Bilirubin Neg (Negative) 04/05/22 17:45 Urine Urobilinogen < 2.0 mg/dL (<2.0) 04/05/22 17:45 Ur Leukocyte Esterase Tr (Negative) 04/05/22 17:45 Urine WBC (Auto) 8.0 /HPF (0.0-6.0) H 04/05/22 17:45 Urine RBC (Auto) 3.0 /HPF (0.0-6.0) 04/05/22 17:45 U Epithel Cells (Auto) 2.0 /HPF (0-13.0) 04/05/22 17:45 Urine Bacteria (Auto) 1+ /HPF (Negative) 04/02/22 Unknown Hyaline Casts 1 /LPF 04/05/22 17:45 Urine Mucus 3+ /HPF 04/05/22 17:45 Nasal Screen MRSA (PCR) Negative (Negative) 04/05/22 12:37 Vancomycin Trough 6.0 ug/mL (5.0-20.0) 04/05/22 18:53 Coronavirus (PCR) Negative (Negative) 04/07/22 14:52 Perez/IV: Voiding Method Condom Catheter Active Medications - Current Medications Current Medications: Generic Name Dose Route Start Last Admin Trade Name Freq PRN Reason Stop Dose Admin Acetaminophen 650 mg 04/02/22 23:53 05/04/22 21:37 Acetaminophen 325 Mg Tab PO 650 mg Q6H PRN Administration Pain MILD(1-3)/Fever >100.5/FAITH Acetylcysteine 200 mg 05/04/22 20:00 05/10/22 09:48 Acetylcysteine 20% 200 Mg/1 Ml *For Inhalation Use* INHALATION 200 mg Q12HRT SEGUNDO Administration Albuterol 2.5 mg 05/05/22 20:00 05/10/22 09:47 Albuterol 2.5 Mg/3 Ml Nebu IH 2.5 mg Q12HRT SEGUNDO Administration Bisacodyl 10 mg 04/07/22 09:44 04/12/22 10:06 Bisacodyl 10 Mg Rect Supp NJ 10 mg QDAY PRN Administration Constipation Docusate Sodium 100 mg 04/28/22 10:00 05/10/22 09:36 Docusate Sodium 100 Mg/10 Ml Oral Liqd FEEDTUBE Not Given BID SEGUNDO Famotidine 20 mg 04/06/22 10:00 05/10/22 09:30 Famotidine 20 Mg Tab FEEDTUBE 20 mg BID SEGUNDO Administration Fentanyl 50 mcg 04/04/22 15:56 05/07/22 22:15 Fentanyl 100 Mcg/2 Ml Inj IV 50 mcg Q2HR PRN Administration For CPOT of greater than 3 Heparin Sodium (Porcine) 5,000 unit 04/03/22 06:00 05/10/22 06:06 Heparin 5,000 Unit/1 Ml Vial SUB-Q 5,000 unit Q8HR SEGUNDO Administration Insulin Human Lispro 0 unit 05/05/22 06:00 05/10/22 06:06 Insulin Lispro 100 Unit/Ml SUB-Q Not Given Q8HR [facility] Protocol Magnesium Hydroxide 30 ml 04/02/22 23:53 Magnesium Hydroxide (Mom) Oral Liqd Udc PO Q4H PRN Constipation Metoprolol Tartrate 12.5 mg 05/03/22 13:00 05/10/22 06:06 Metoprolol Tartrate 25 Mg Tab FEEDTUBE 12.5 mg Q6HR SEGUNDO Administration Ondansetron HCl 4 mg 04/02/22 23:53 Ondansetron 4 Mg/2 Ml Inj IV Q8H PRN Nausea And Vomiting Polyethylene Glycol 17 gm 04/08/22 10:00 05/10/22 09:36 Polyethylene Glycol 3350 17 Gm Powder PO Not Given QDAY SEGUNDO Quetiapine Fumarate 50 mg 04/28/22 10:00 05/10/22 09:30 Quetiapine 25 Mg Tab FEEDTUBE 50 mg BID SEGUNDO Administration Senna 17.6 mg 04/28/22 10:00 05/10/22 09:36 Sennosides Oral Liqd 8.8 Mg/5 Ml Oral Liqd FEEDTUBE Not Given Q12HR SEGUNDO Sodium Chloride 10 ml 04/03/22 10:00 05/10/22 09:30 Sodium Chloride 0.9% 10 Ml Flush Syringe IV 10 ml BID SEGUNDO Administration Sodium Chloride 10 ml 04/02/22 23:53 Sodium Chloride 0.9% 10 Ml Flush Syringe IV PRN PRN LINE FLUSH Nutrition/Malnutrition Assess - Dietary Evaluation Nutrition/Malnutrition Findings: Nutrition Notes Start: 04/04/22 13:13 Freq: Status: Active Protocol: Document 05/04/22 12:27 COLLEEN (Rec: 05/04/22 12:46 COLLEEN [id number]) Nutrition Notes Initial or Follow up Reassessment Current Diagnosis Coronary Artery Disease, Decubitus(Pressure Ulcer), Sepsis,Respiratory Failure, Malnutrition Other Pertinent Diagnosis HCAP, ALS, Broncopneumonia, NSTEMI, Cardiomyopathy, ... Current Diet TF-Vital AF 1.2 Inderjit @ 50 ml/hr (since D 04/15). Labs/Tests 05/03: Na 134, Cl 90.5, CO2 38 , BUN 21, Crea <0.2, Glu 126. Pertinent Medications 05/04: Nutritionally unremarkable. Height 5 ft 4.8 in Weight 46.8 kg Butler Body Weight (kg) 61.27 BMI 17.2 Weight change and time frame No body weight change reported in 4 weeks. Weight Status Underweight Subjective/Other Information RD consult for routine F/U on TF tolerance/continuation. TF continues as prescribed, and well tolerated, according to RN notes. Pt continues on Mechanical ventilation, O2 saturation @ 96%, according to Physical Assessment Histroy notes. Pt will be discharged home with family; awaiting home- Vent setup; family declined SNF placement, according to Progress notes. Percent of energy/protein needs met: Prescribed TF-Vital AF 1.2 Inderjit @ 50 ml/hr provides for energy/protein needs (1,450 Kcal/91 g) during LOS, 98% Kcal; 100% AA. Burn Absent Trauma Absent GI Symptoms Constipation Difficulty In Swallowing,Chewing Food Allergy No Skin Integrity/Comment Sacral open wound. Current % PO Other Minimum of two criteria No #1 Nutrition Diagnosis Inadequate oral intake Diagnosis Progress(for reassessment Continues documentation) Is patient on ventilator? Yes Is Patient Ambulatory and/or Out of Bed No REE-([facility]-confined to bed) 7636.485 Calculation Used for Recommendations [facility] Additional Notes Protein: 1.2-2 g/Kg IBW; 73- 122 g/day. Fluids: 1 ml/Kcal, or as per MD. Nutrition Intervention Nutrition Support: Continue TF-Vital AF 1.2 Inderjit @ 50 ml/hr. Flush: 80 ml water Q 4 hr, or as per MD. Kcal 1,450 Protein (gm) 91 Carbohydrates (gm) 134 Fat (gm) 65 Fluid (mL) 980 Fiber (gm) 6 % RDI: 98% Kcal; 100% AA. Goal #1 Provide at least 75% of energy /protein needs through Enteral Feeding during LOS. Follow-Up By: 05/11/22 Additional Comments Continue monitoring TF tolerance and BM. <NORM GRAYSON - Last Filed: 05/13/22 12:14> Assessment and Plan Assessment and plan: I saw and evaluated the patient. Discussed with the nurse practitioner and agree with their findings and plan as documented in this note. Hospitalist Physical - Constitutional Vitals: Temp Pulse Resp BP Pulse Ox 98.4 F 108 H 14 115/75 92 05/13/22 08:00 05/13/22 11:08 05/13/22 11:00 05/13/22 11:08 05/13/22 11:00 HEART Score - HEART Score Troponin: Troponin T 0.031 ng/mL (0.00-0.029) H 04/08/22 17:47 Results - Labs CBC & Chem 7: 05/13/22 04:02 05/13/22 04:02 Labs: Laboratory Last Values WBC 13.3 K/mm3 (4.5-11.0) H 05/13/22 04:02 RBC 3.14 M/mm3 (3.65-5.03) L 05/13/22 04:02 Hgb 8.7 gm/dl (11.8-15.2) L 05/13/22 04:02 Hct 28.0 % (35.5-45.6) L 05/13/22 04:02 MCV 89 fl (84-94) 05/13/22 04:02 MCH 28 pg (28-32) 05/13/22 04:02 MCHC 31 % (32-34) L 05/13/22 04:02 RDW 15.2 % (13.2-15.2) 05/13/22 04:02 Plt Count 418 K/mm3 (140-440) 05/13/22 04:02 Lymph % (Auto) 8.1 % (13.4-35.0) L 05/09/22 15:15 Osborne % (Auto) 4.9 % (0.0-7.3) 05/09/22 15:15 Eos % (Auto) 0.6 % (0.0-4.3) 05/09/22 15:15 Baso % (Auto) 0.3 % (0.0-1.8) 05/09/22 15:15 Lymph # (Auto) 0.9 K/mm3 (1.2-5.4) L 05/09/22 15:15 Osborne # (Auto) 0.5 K/mm3 (0.0-0.8) 05/09/22 15:15 Eos # (Auto) 0.1 K/mm3 (0.0-0.4) 05/09/22 15:15 Baso # (Auto) 0.0 K/mm3 (0.0-0.1) 05/09/22 15:15 Add Manual Diff Complete 04/02/22 19:39 Total Counted 100 04/02/22 19:39 Seg Neutrophils % 86.1 % (40.0-70.0) H 05/09/22 15:15 Seg Neuts % (Manual) 94.0 % (40.0-70.0) H 04/02/22 19:39 Band Neutrophils % 0 % 04/02/22 19:39 Lymphocytes % (Manual) 1.0 % (13.4-35.0) L 04/02/22 19:39 Reactive Lymphs % (Man) 0 % 04/02/22 19:39 Monocytes % (Manual) 5.0 % (0.0-7.3) 04/02/22 19:39 Eosinophils % (Manual) 0 % (0.0-4.3) 04/02/22 19:39 Basophils % (Manual) 0 % (0.0-1.8) 04/02/22 19:39 Metamyelocytes % 0 % 04/02/22 19:39 Myelocytes % 0 % 04/02/22 19:39 Promyelocytes % 0 % 04/02/22 19:39 Blast Cells % 0 % 04/02/22 19:39 Nucleated RBC % Not Reportable 04/02/22 19:39 Seg Neutrophils # 9.2 K/mm3 (1.8-7.7) H 05/09/22 15:15 Seg Neutrophils # Man 13.4 K/mm3 (1.8-7.7) H 04/02/22 19:39 Band Neutrophils # 0.0 K/mm3 04/02/22 19:39 Lymphocytes # (Manual) 0.1 K/mm3 (1.2-5.4) L 04/02/22 19:39 Abs React Lymphs (Man) 0.0 K/mm3 04/02/22 19:39 Monocytes # (Manual) 0.7 K/mm3 (0.0-0.8) 04/02/22 19:39 Eosinophils # (Manual) 0.0 K/mm3 (0.0-0.4) 04/02/22 19:39 Basophils # (Manual) 0.0 K/mm3 (0.0-0.1) 04/02/22 19:39 Metamyelocytes # 0.0 K/mm3 04/02/22 19:39 Myelocytes # 0.0 K/mm3 04/02/22 19:39 Promyelocytes # 0.0 K/mm3 04/02/22 19:39 Blast Cells # 0.0 K/mm3 04/02/22 19:39 WBC Morphology Not Reportable 04/02/22 19:39 Hypersegmented Neuts Not Reportable 04/02/22 19:39 Hyposegmented Neuts Not Reportable 04/02/22 19:39 Hypogranular Neuts Not Reportable 04/02/22 19:39 Smudge Cells Not Reportable 04/02/22 19:39 Toxic Granulation Not Reportable 04/02/22 19:39 Toxic Vacuolation Not Reportable 04/02/22 19:39 Dohle Bodies Not Reportable 04/02/22 19:39 Pelger-Huet Anomaly Not Reportable 04/02/22 19:39 Terry Rods Not Reportable 04/02/22 19:39 Platelet Estimate Consistent w auto 04/02/22 19:39 Clumped Platelets Not Reportable 04/02/22 19:39 Plt Clumps, EDTA Not Reportable 04/02/22 19:39 Large Platelets Not Reportable 04/02/22 19:39 Giant Platelets Not Reportable 04/02/22 19:39 Platelet Satelliting Not Reportable 04/02/22 19:39 Plt Morphology Comment Not Reportable 04/02/22 19:39 RBC Morphology Not Reportable 04/02/22 19:39 Dimorphic RBCs Not Reportable 04/02/22 19:39 Polychromasia Not Reportable 04/02/22 19:39 Hypochromasia Not Reportable 04/02/22 19:39 Poikilocytosis Not Reportable 04/02/22 19:39 Anisocytosis 1+ 04/02/22 19:39 Microcytosis Not Reportable 04/02/22 19:39 Macrocytosis Not Reportable 04/02/22 19:39 Spherocytes Not Reportable 04/02/22 19:39 Pappenheimer Bodies Not Reportable 04/02/22 19:39 Sickle Cells Not Reportable 04/02/22 19:39 Target Cells Not Reportable 04/02/22 19:39 Tear Drop Cells Not Reportable 04/02/22 19:39 Ovalocytes Not Reportable 04/02/22 19:39 Helmet Cells Not Reportable 04/02/22 19:39 Patricio-[place] Bodies Not Reportable 04/02/22 19:39 [place] Rings Not Reportable 04/02/22 19:39 Cheikh Cells Not Reportable 04/02/22 19:39 Bite Cells Not Reportable 04/02/22 19:39 Crenated Cell Not Reportable 04/02/22 19:39 Elliptocytes Not Reportable 04/02/22 19:39 Acanthocytes (Spur) Not Reportable 04/02/22 19:39 Rouleaux Not Reportable 04/02/22 19:39 Hemoglobin C Crystals Not Reportable 04/02/22 19:39 Schistocytes Not Reportable 04/02/22 19:39 Malaria parasites Not Reportable 04/02/22 19:39 D[place] Bodies Not Reportable 04/02/22 19:39 Hem Pathologist Commnt No 04/02/22 19:39 PT 13.6 Sec. (12.2-14.9) 04/13/22 04:30 INR 0.94 (0.87-1.13) 04/13/22 04:30 APTT 35.7 Sec. (24.2-36.6) 04/07/22 03:51 ABG pH 7.383 pH Units (7.350-7.450) 05/04/22 09:36 ABG pCO2 75.0 mm Hg 05/04/22 09:36 ABG pO2 55.4 mm Hg (80.0-90.0) L 05/04/22 09:36 ABG HCO3 43.7 mmol/L (20.0-26.0) H 05/04/22 09:36 ABG O2 Saturation 87.4 % (95.0-99.0) L 05/04/22 09:36 ABG O2 Content 11.0 (0.0-44) 05/04/22 09:36 ABG Base Excess 16.1 mmol/L (-2.0-3.0) H 05/04/22 09:36 ABG Hemoglobin 9.1 gm/dl (14.0-18.0) L 05/04/22 09:36 ABG Carboxyhemoglobin 1.5 % (0.0-5.0) 05/04/22 09:36 ABG Methemoglobin 0.4 % (0.0-1.5) 05/04/22 09:36 Oxyhemoglobin 85.7 % (95.0-99.0) L 05/04/22 09:36 FiO2 30 % 05/04/22 09:36 Sodium 135 mmol/L (137-145) L 05/13/22 04:02 Potassium 4.2 mmol/L (3.6-5.0) 05/13/22 04:02 Chloride 91.1 mmol/L (98-107) L 05/13/22 04:02 Carbon Dioxide 40 mmol/L (22-30) H 05/13/22 04:02 Anion Gap 8 mmol/L 05/13/22 04:02 BUN 23 mg/dL (9-20) H 05/13/22 04:02 Creatinine < 0.2 mg/dL (0.8-1.3) L 05/13/22 04:02 Estimated GFR > 60 ml/min 05/13/22 04:02 BUN/Creatinine Ratio 115 % 05/13/22 04:02 Glucose 139 mg/dL (75-100) H 05/13/22 04:02 POC Glucose 129 mg/dL (70-105) H 05/13/22 06:32 Lactic Acid 1.90 mmol/L (0.7-2.0) 04/02/22 19:39 Calcium 8.6 mg/dL (8.4-10.2) 05/13/22 04:02 Phosphorus 3.40 mg/dL (2.5-4.5) 05/05/22 04:23 Magnesium 1.90 mg/dL (1.7-2.3) 05/05/22 04:23 Total Bilirubin 0.80 mg/dL (0.1-1.2) 04/02/22 19:39 AST 15 units/L (5-40) 04/02/22 19:39 ALT 9 units/L (7-56) 04/02/22 19:39 Alkaline Phosphatase 43 units/L (35-129) 04/02/22 19:39 Total Creatine Kinase 46 units/L (55-170) L 04/08/22 17:47 CK-MB (CK-2) 2.6 ng/mL (0.0-4.0) 04/08/22 17:47 CK-MB (CK-2) Rel Index 5.6 (0-4) H 04/08/22 17:47 Troponin T 0.031 ng/mL (0.00-0.029) H 04/08/22 17:47 C-Reactive Protein 31.60 mg/dL (0.00-1.30) H 04/04/22 04:18 Total Protein 4.6 g/dL (6.3-8.2) L 04/02/22 19:39 Albumin 2.7 g/dL (3.9-5) L 04/02/22 19:39 Albumin/Globulin Ratio 1.4 % 04/02/22 19:39 Triglycerides 80 mg/dL (2-149) 04/02/22 19:39 Cholesterol 94 mg/dL (50-199) 04/02/22 19:39 LDL Cholesterol Direct 27 mg/dL (50-130) L 04/02/22 19:39 HDL Cholesterol 47 mg/dL (40-59) 04/02/22 19:39 Cholesterol/HDL Ratio 2.00 % 04/02/22 19:39 Procalcitonin 0.08 ng/mL (<0.15) 04/04/22 04:18 Urine Color Aracely (Yellow) 04/05/22 17:45 Urine Turbidity Cloudy (Clear) 04/05/22 17:45 Urine pH 5.0 (5.0-7.0) 04/05/22 17:45 Ur Specific Corinna 1.021 (1.003-1.030) 04/05/22 17:45 Urine Protein 30 mg/dl mg/dL (Negative) 04/05/22 17:45 Urine Glucose (UA) Neg mg/dL (Negative) 04/05/22 17:45 Urine Ketones Tr mg/dL (Negative) 04/05/22 17:45 Urine Blood Sm (Negative) 04/05/22 17:45 Urine Nitrite Neg (Negative) 04/05/22 17:45 Urine Bilirubin Neg (Negative) 04/05/22 17:45 Urine Urobilinogen < 2.0 mg/dL (<2.0) 04/05/22 17:45 Ur Leukocyte Esterase Tr (Negative) 04/05/22 17:45 Urine WBC (Auto) 8.0 /HPF (0.0-6.0) H 04/05/22 17:45 Urine RBC (Auto) 3.0 /HPF (0.0-6.0) 04/05/22 17:45 U Epithel Cells (Auto) 2.0 /HPF (0-13.0) 04/05/22 17:45 Urine Bacteria (Auto) 1+ /HPF (Negative) 04/02/22 Unknown Hyaline Casts 1 /LPF 04/05/22 17:45 Urine Mucus 3+ /HPF 04/05/22 17:45 Nasal Screen MRSA (PCR) Negative (Negative) 04/05/22 12:37 Vancomycin Trough 6.0 ug/mL (5.0-20.0) 04/05/22 18:53 Coronavirus (PCR) Negative (Negative) 04/07/22 14:52 Perez/IV: Voiding Method Condom Catheter Active Medications - Current Medications Current Medications: Generic Name Dose Route Start Last Admin Trade Name Freq PRN Reason Stop Dose Admin Acetaminophen 650 mg 04/02/22 23:53 05/04/22 21:37 Acetaminophen 325 Mg Tab PO 650 mg Q6H PRN Administration Pain MILD(1-3)/Fever >100.5/FAITH Acetylcysteine 200 mg 05/04/22 20:00 05/13/22 08:44 Acetylcysteine 20% 200 Mg/1 Ml *For Inhalation Use* INHALATION 200 mg Q12HRT SEGUNDO Administration Albuterol 2.5 mg 05/05/22 20:00 05/13/22 08:43 Albuterol 2.5 Mg/3 Ml Nebu IH 2.5 mg Q12HRT SEGUNDO Administration Bisacodyl 10 mg 04/07/22 09:44 04/12/22 10:06 Bisacodyl 10 Mg Rect Supp NJ 10 mg QDAY PRN Administration Constipation Docusate Sodium 100 mg 04/28/22 10:00 05/13/22 11:24 Docusate Sodium 100 Mg/10 Ml Oral Liqd FEEDTUBE Not Given BID SEGUNDO Famotidine 20 mg 04/06/22 10:00 05/13/22 11:09 Famotidine 20 Mg Tab FEEDTUBE 20 mg BID SEGUNDO Administration Fentanyl 50 mcg 04/04/22 15:56 05/11/22 22:00 Fentanyl 100 Mcg/2 Ml Inj IV 50 mcg Q2HR PRN Administration For CPOT of greater than 3 Heparin Sodium (Porcine) 5,000 unit 04/03/22 06:00 05/13/22 06:44 Heparin 5,000 Unit/1 Ml Vial SUB-Q 5,000 unit Q8HR SEGUNDO Administration Insulin Human Lispro 0 unit 05/05/22 06:00 05/13/22 06:44 Insulin Lispro 100 Unit/Ml SUB-Q Not Given Q8HR [facility] Protocol Magnesium Hydroxide 30 ml 04/02/22 23:53 Magnesium Hydroxide (Mom) Oral Liqd Udc PO Q4H PRN Constipation Metoprolol Tartrate 12.5 mg 05/03/22 13:00 05/13/22 11:08 Metoprolol Tartrate 25 Mg Tab FEEDTUBE 12.5 mg Q6HR SEGUNDO Administration Ondansetron HCl 4 mg 04/02/22 23:53 Ondansetron 4 Mg/2 Ml Inj IV Q8H PRN Nausea And Vomiting Polyethylene Glycol 17 gm 04/08/22 10:00 05/13/22 11:24 Polyethylene Glycol 3350 17 Gm Powder PO Not Given QDAY SEGUNDO Quetiapine Fumarate 50 mg 05/13/22 11:00 05/13/22 11:07 Quetiapine 100 Mg Tab FEEDTUBE 50 mg BID SEGUNDO Administration Scopolamine 1 each 05/12/22 09:00 05/12/22 17:37 Scopolamine Transdermal Patch 72 Hr TD Not Given Q3D SEGUNDO Senna 17.6 mg 04/28/22 10:00 05/13/22 11:26 Sennosides Oral Liqd 8.8 Mg/5 Ml Oral Liqd FEEDTUBE Not Given Q12HR SEGUNDO Sodium Chloride 10 ml 04/03/22 10:00 05/13/22 11:09 Sodium Chloride 0.9% 10 Ml Flush Syringe IV 10 ml BID SEGUNDO Administration Sodium Chloride 10 ml 04/02/22 23:53 Sodium Chloride 0.9% 10 Ml Flush Syringe IV PRN PRN LINE FLUSH Nutrition/Malnutrition Assess - Dietary Evaluation Nutrition/Malnutrition Findings: Nutrition Notes Start: 04/04/22 13:13 Freq: Status: Active Protocol: Document 05/11/22 11:49 COLLEEN (Rec: 05/11/22 12:02 COLLEEN [id number]) Nutrition Notes Initial or Follow up Reassessment Current Diagnosis Coronary Artery Disease, Decubitus(Pressure Ulcer), Sepsis,Respiratory Failure, Malnutrition Other Pertinent Diagnosis HCAP, ALS, Broncopneumonia, NSTEMI, Cardiomyopathy, ... Current Diet TF-Vital AF 1.2 Inderjit @ 50 ml/hr (since D 04/15). Labs/Tests 05/09: Cl 92.9, CO2 40, Crea < 0.2, Glu 141. Pertinent Medications 05/11: Nutritionally unremarkable. Height 5 ft 4.8 in Weight 46.8 kg Butler Body Weight (kg) 61.27 BMI 17.2 Weight change and time frame No body weight change reported in 5 weeks. Weight Status Underweight Subjective/Other Information RD consult for routine F/U on TF tolerance/continuation. TF continues as prescribed, and well tolerated, according to RN notes. Pt continues on Mechanical ventilation, O2 saturation @ 93%, according to Physical Assessment Histroy notes. Pt will be discharged home with family; awaiting home- Vent family training to be over on 05/12, according to Progress notes. Percent of energy/protein needs met: Prescribed TF-Vital AF 1.2 Inderjit @ 50 ml/hr provides for energy/protein needs (1,450 Kcal/91 g) during LOS, 98% Kcal; 100% AA. Burn Absent Trauma Absent GI Symptoms Constipation Difficulty In Swallowing,Chewing Food Allergy No Skin Integrity/Comment Sacral open wound. Current % PO Other Minimum of two criteria No #1 Nutrition Diagnosis Inadequate oral intake Diagnosis Progress(for reassessment Continues documentation) Is patient on ventilator? Yes Is Patient Ambulatory and/or Out of Bed No REE-([facility]-confined to bed) [phone] Calculation Used for Recommendations [facility] Additional Notes Protein: 1.2-2 g/Kg IBW; 73- 122 g/day. Fluids: 1 ml/Kcal, or as per MD. Nutrition Intervention Nutrition Support: Continue TF-Vital AF 1.2 Inderjit @ 50 ml/hr. Flush: 80 ml water Q 4 hr, or as per MD. Kcal 1,450 Protein (gm) 91 Carbohydrates (gm) 134 Fat (gm) 65 Fluid (mL) 980 Fiber (gm) 6 % RDI: 98% Kcal; 100% AA. Goal #1 Provide at least 75% of energy /protein needs through Enteral Feeding during LOS. Follow-Up By: 05/18/22 Additional Comments Continue monitoring TF tolerance and BM.
--- NOTE | 2022-05-10 15:39 | Progress Note ---
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 Protein calorie malnutrition Acute Bronchopneumonia HCAP Hypotension NSTEMI Hypernatremia Acute Metabolic Encephalopathy H/o Amyotrophic Lateral Sclerosis Nonverbal at Baseline Thrombocytopenia Protein Caloric Malnutrition Constipation - continue family ventilator and patient care training - continue daily SAT and SBT assessment as tolerated while in hospital - tentative discharge tuesday / tuesday - follow routine labs and address - optimize nutritional status - continue care as below otherwise; - bronchoscopy if develops large volume atelectasis - continue mucomyst nebs for thick tenacious secretions - continue scheduled CPT - continue Seroquel for anxiolysis / delirium - continue bronchodilators with pulmonary hygiene per RT - continue to wean supplemental oxygen for target O2 sat's > 90% acutely - VAP bundle addressed - continue lung protective strategies - wean per pulmonary driven protocols otherwise - continue accuchecks with glycemic control per SSI (While critically ill target blood glucose of 140-180 mg/dL; avoid hypoglycemia) - sedation prn for target RASS 0 to -1 - avoid nephrotoxins, renally dose all medications - continue to avoid benzodiazepine's, reduce the possibility of delirium - AB's per ID rec's - prn analgesia per CPOT score - Maintenance of sleep-wake cycle, avoid delirium - continue enteral nutritional support at goal rate as tolerated - G.I. & VTE prophylaxis - PT/OT/ROM exercises - continue mobility protocols for pressure ulcer prophylaxis - Monitor hemodynamics closely - continue other care per attending / other consultants - discharge planning ongoing concurrently COVID SPECIFIC INTERVENTIONS - test pending .... Re-evaluate in am & prn CONDITION: CRITICAL PROGNOSIS: GUARDED CODE STATUS: FULL CODE The high probability of a clinically significant, sudden or life-threatening deterioration of the [respiratory, cardiovascular & neurologic] system(s) required my full and direct attention, intervention and personal management. The aggregate critical care time was [32] minutes without overlap. Time includes spent on; [x] Data Review and interpretation [x] Patient assessment and monitoring of vital signs [x] Documentation [x] Medication orders and management Subjective Date of service: 05/10/22 Principal diagnosis: Ac and ch hypercapnic and hypoxemic Resp Failure; ALS; HCAP; Sepsis; NSTEMI Interval history: Patient is seen today for: Acute and chronic hypercapnic and hypoxemic Respiratory Failure; ALS; HCAP; Sepsis; NSTEMI; AMS; Hypernatremia; Thrombocytopenia; Protein Caloric Malnutrition; Constipation Seen and examined at bedside; 24hour events reviewed; nursing and respiratory care staff consulted; no adverse overnight events reported to me; resting peacefully in bed; remains on MVS; Objective Vital Signs - 12hr 05/10/22 05/10/22 05/10/22 04:00 04:28 05:00 Temperature 99.0 F Pulse Rate 105 H 108 H 101 H Pulse Rate [ Anterior Bilateral Throughout] Pulse Rate [ Bilateral Throughout] Pulse Rate [ From Monitor] Respiratory 18 14 Rate Respiratory Rate [Anterior Bilateral Throughout] Respiratory Rate [Bilateral Throughout] Blood Pressure 102/69 102/69 104/71 O2 Sat by Pulse 92 91 95 Oximetry O2 Sat by Pulse Oximetry [ Assessment] 05/10/22 05/10/22 05/10/22 05:15 06:00 06:06 Temperature Pulse Rate 95 H 107 H 105 H Pulse Rate [ Anterior Bilateral Throughout] Pulse Rate [ Bilateral Throughout] Pulse Rate [ From Monitor] Respiratory 14 Rate Respiratory Rate [Anterior Bilateral Throughout] Respiratory Rate [Bilateral Throughout] Blood Pressure 108/72 108/72 O2 Sat by Pulse 97 Oximetry O2 Sat by Pulse Oximetry [ Assessment] 05/10/22 05/10/22 05/10/22 07:00 08:00 08:55 Temperature 98.8 F Pulse Rate 104 H 104 H 120 H Pulse Rate [ Anterior Bilateral Throughout] Pulse Rate [ Bilateral Throughout] Pulse Rate [ 118 H From Monitor] Respiratory 31 H 18 Rate Respiratory Rate [Anterior Bilateral Throughout] Respiratory Rate [Bilateral Throughout] Blood Pressure 115/75 112/77 129/88 O2 Sat by Pulse 91 95 96 Oximetry O2 Sat by Pulse Oximetry [ Assessment] 05/10/22 05/10/22 05/10/22 09:00 09:40 10:00 Temperature Pulse Rate 120 H 114 H Pulse Rate [ 114 H Anterior Bilateral Throughout] Pulse Rate [ 115 H Bilateral Throughout] Pulse Rate [ From Monitor] Respiratory 20 23 Rate Respiratory 16 Rate [Anterior Bilateral Throughout] Respiratory 21 Rate [Bilateral Throughout] Blood Pressure 129/88 114/69 O2 Sat by Pulse 96 96 Oximetry O2 Sat by Pulse Oximetry [ Assessment] 05/10/22 05/10/22 05/10/22 10:05 11:00 12:00 Temperature 97.6 F Pulse Rate 110 H 104 H Pulse Rate [ Anterior Bilateral Throughout] Pulse Rate [ Bilateral Throughout] Pulse Rate [ 112 H From Monitor] Respiratory 16 15 Rate Respiratory Rate [Anterior Bilateral Throughout] Respiratory Rate [Bilateral Throughout] Blood Pressure 115/72 100/65 O2 Sat by Pulse 100 97 Oximetry O2 Sat by Pulse 97 Oximetry [ Assessment] 05/10/22 05/10/22 05/10/22 13:00 13:09 14:00 Temperature Pulse Rate 102 H 102 H 112 H Pulse Rate [ Anterior Bilateral Throughout] Pulse Rate [ Bilateral Throughout] Pulse Rate [ From Monitor] Respiratory 14 13 Rate Respiratory Rate [Anterior Bilateral Throughout] Respiratory Rate [Bilateral Throughout] Blood Pressure 104/66 104/66 110/64 O2 Sat by Pulse 100 100 100 Oximetry O2 Sat by Pulse Oximetry [ Assessment] 05/10/22 05/10/22 15:00 15:34 Temperature Pulse Rate 107 H 107 H Pulse Rate [ Anterior Bilateral Throughout] Pulse Rate [ Bilateral Throughout] Pulse Rate [ From Monitor] Respiratory 15 Rate Respiratory Rate [Anterior Bilateral Throughout] Respiratory Rate [Bilateral Throughout] Blood Pressure 101/65 101/65 O2 Sat by Pulse 98 98 Oximetry O2 Sat by Pulse Oximetry [ Assessment] Constitutional: no acute distress, alert, other (resting in bed with mildly increased respiratory effort at rest) Eyes: non-icteric ENT: oropharynx moist, other (+ midline tracheostomy) Neck: supple, no lymphadenopathy, no JVD Effort: mildly labored Ascultation: Bilateral: diminished breath sounds (bases), rhonchi Percussion: Bilateral: not dull Cardiovascular: regular rate and rhythm, other (S1,S2) Gastrointestinal: normoactive bowel sounds, soft, non-tender, non-distended Integumentary: normal Extremities: no cyanosis, no edema, pink and warm, pulses normal Neurologic: pupils equal and round, other (functional quadriplegia) Psychiatric: mood appropriate, affect normal, other CBC and BMP: 05/09/22 15:15 05/09/22 15:15 ABG, PT/INR, D-dimer: ABG ABG pH 7.383 pH Units (7.350-7.450) 05/04/22 09:36 ABG pCO2 75.0 mm Hg 05/04/22 09:36 ABG pO2 55.4 mm Hg (80.0-90.0) L 05/04/22 09:36 ABG O2 Saturation 87.4 % (95.0-99.0) L 05/04/22 09:36 PT/INR, D-dimer PT 13.6 Sec. (12.2-14.9) 04/13/22 04:30 INR 0.94 (0.87-1.13) 04/13/22 04:30 Abnormal lab findings: Abnormal Labs 04/02/22 04/02/22 04/02/22 19:39 19:39 19:39 WBC 14.3 H RBC Hgb Hct MCV 96 H Plt Count 104 L Lymph % (Auto) [place] % (Auto) Lymph # (Auto) [place] # (Auto) Seg Neutrophils % Seg Neuts % (Manual) 94.0 H Lymphocytes % (Manual) 1.0 L Seg Neutrophils # Seg Neutrophils # Man 13.4 H Lymphocytes # (Manual) 0.1 L PT 15.9 H INR 1.14 H ABG pH ABG pO2 ABG HCO3 ABG O2 Saturation ABG Base Excess ABG Hemoglobin Oxyhemoglobin Sodium 151 H Potassium Chloride Carbon Dioxide BUN Creatinine 0.5 L Glucose POC Glucose Calcium 8.2 L Phosphorus Magnesium 1.60 L Total Creatine Kinase CK-MB (CK-2) Rel Index Troponin T 0.048 H C-Reactive Protein Total Protein 4.6 L Albumin 2.7 L LDL Cholesterol Direct 27 L Urine WBC (Auto) 04/02/22 04/03/22 04/03/22 19:42 05:14 06:30 WBC RBC Hgb Hct MCV Plt Count Lymph % (Auto) [place] % (Auto) Lymph # (Auto) [place] # (Auto) Seg Neutrophils % Seg Neuts % (Manual) Lymphocytes % (Manual) Seg Neutrophils # Seg Neutrophils # Man Lymphocytes # (Manual) PT INR ABG pH 7.471 H 7.496 H ABG pO2 47.8 L 91.0 H ABG HCO3 30.6 H ABG O2 Saturation 94.4 L ABG Base Excess 6.2 H ABG Hemoglobin 11.0 L 12.8 L Oxyhemoglobin 93.1 L Sodium 149 H Potassium 3.4 L Chloride Carbon Dioxide BUN Creatinine 0.4 L Glucose POC Glucose Calcium Phosphorus Magnesium Total Creatine Kinase CK-MB (CK-2) Rel Index Troponin T C-Reactive Protein Total Protein Albumin LDL Cholesterol Direct Urine WBC (Auto) 04/04/22 04/04/22 04/04/22 04:18 04:18 05:50 WBC 11.8 H RBC Hgb Hct MCV Plt Count 132 L Lymph % (Auto) [place] % (Auto) Lymph # (Auto) [place] # (Auto) Seg Neutrophils % Seg Neuts % (Manual) Lymphocytes % (Manual) Seg Neutrophils # Seg Neutrophils # Man Lymphocytes # (Manual) PT INR ABG pH 7.517 H ABG pO2 115.5 H ABG HCO3 29.9 H ABG O2 Saturation ABG Base Excess 6.7 H ABG Hemoglobin 12.3 L Oxyhemoglobin Sodium Potassium 3.5 L Chloride Carbon Dioxide 31 H BUN Creatinine 0.3 L Glucose 153 H POC Glucose Calcium Phosphorus 1.40 L Magnesium 1.50 L Total Creatine Kinase CK-MB (CK-2) Rel Index Troponin T C-Reactive Protein 31.60 H Total Protein Albumin LDL Cholesterol Direct Urine WBC (Auto) 04/05/22 04/05/22 04/05/22 02:50 05:25 11:28 WBC RBC Hgb Hct MCV Plt Count Lymph % (Auto) [place] % (Auto) Lymph # (Auto) [place] # (Auto) Seg Neutrophils % Seg Neuts % (Manual) Lymphocytes % (Manual) Seg Neutrophils # Seg Neutrophils # Man Lymphocytes # (Manual) PT INR ABG pH 7.455 H ABG pO2 50.7 L ABG HCO3 30.5 H ABG O2 Saturation 89.4 L ABG Base Excess 5.9 H ABG Hemoglobin 11.8 L Oxyhemoglobin 88.2 L Sodium Potassium Chloride Carbon Dioxide 32 H BUN Creatinine 0.2 L Glucose 110 H POC Glucose 124 H Calcium 7.9 L Phosphorus Magnesium Total Creatine Kinase CK-MB (CK-2) Rel Index Troponin T C-Reactive Protein Total Protein Albumin LDL Cholesterol Direct Urine WBC (Auto) 04/05/22 04/05/22 04/06/22 17:45 Unknown 04:00 WBC RBC 3.55 L Hgb 11.1 L 11.5 L Hct 33.2 L 35.1 L MCV Plt Count 113 L 114 L Lymph % (Auto) [place] % (Auto) Lymph # (Auto) [place] # (Auto) Seg Neutrophils % Seg Neuts % (Manual) Lymphocytes % (Manual) Seg Neutrophils # Seg Neutrophils # Man Lymphocytes # (Manual) PT INR ABG pH ABG pO2 ABG HCO3 ABG O2 Saturation ABG Base Excess ABG Hemoglobin Oxyhemoglobin Sodium Potassium Chloride Carbon Dioxide BUN Creatinine Glucose POC Glucose Calcium Phosphorus Magnesium Total Creatine Kinase CK-MB (CK-2) Rel Index Troponin T C-Reactive Protein Total Protein Albumin LDL Cholesterol Direct Urine WBC (Auto) 8.0 H 04/06/22 04/06/22 04/07/22 04:00 08:30 00:04 WBC RBC Hgb Hct MCV Plt Count Lymph % (Auto) [place] % (Auto) Lymph # (Auto) [place] # (Auto) Seg Neutrophils % Seg Neuts % (Manual) Lymphocytes % (Manual) Seg Neutrophils # Seg Neutrophils # Man Lymphocytes # (Manual) PT INR ABG pH ABG pO2 60.8 L ABG HCO3 30.5 H ABG O2 Saturation 93.3 L ABG Base Excess 4.9 H ABG Hemoglobin 12.4 L Oxyhemoglobin 92.1 L Sodium Potassium 3.0 L Chloride Carbon Dioxide BUN Creatinine < 0.2 L Glucose 130 H POC Glucose 117 H Calcium 8.1 L Phosphorus Magnesium Total Creatine Kinase CK-MB (CK-2) Rel Index Troponin T C-Reactive Protein Total Protein Albumin LDL Cholesterol Direct Urine WBC (Auto) 04/07/22 04/07/22 04/07/22 03:51 03:51 03:51 WBC 14.6 H RBC 3.57 L Hgb 11.1 L Hct 33.2 L MCV Plt Count 118 L Lymph % (Auto) 4.3 L [place] % (Auto) 8.8 H Lymph # (Auto) 0.6 L [place] # (Auto) 1.3 H Seg Neutrophils % 86.6 H Seg Neuts % (Manual) Lymphocytes % (Manual) Seg Neutrophils # 12.7 H Seg Neutrophils # Man Lymphocytes # (Manual) PT 15.2 H INR ABG pH ABG pO2 ABG HCO3 ABG O2 Saturation ABG Base Excess ABG Hemoglobin Oxyhemoglobin Sodium 133 L Potassium Chloride 96.0 L Carbon Dioxide 31 H BUN Creatinine 0.2 L Glucose 130 H POC Glucose Calcium 8.0 L Phosphorus Magnesium Total Creatine Kinase CK-MB (CK-2) Rel Index Troponin T C-Reactive Protein Total Protein Albumin LDL Cholesterol Direct Urine WBC (Auto) 04/07/22 04/07/22 04/08/22 04:25 09:10 04:49 WBC 16.1 H RBC 3.54 L Hgb 10.9 L Hct 33.3 L MCV Plt Count Lymph % (Auto) [place] % (Auto) Lymph # (Auto) [place] # (Auto) Seg Neutrophils % Seg Neuts % (Manual) Lymphocytes % (Manual) Seg Neutrophils # Seg Neutrophils # Man Lymphocytes # (Manual) PT INR ABG pH ABG pO2 71.0 L 63.4 L ABG HCO3 31.5 H 40.0 H ABG O2 Saturation 94.9 L ABG Base Excess 5.9 H 13.6 H ABG Hemoglobin 11.3 L 9.0 L Oxyhemoglobin 93.6 L Sodium Potassium Chloride Carbon Dioxide BUN Creatinine Glucose POC Glucose Calcium Phosphorus Magnesium Total Creatine Kinase CK-MB (CK-2) Rel Index Troponin T C-Reactive Protein Total Protein Albumin LDL Cholesterol Direct Urine WBC (Auto) 04/08/22 04/08/22 04/08/22 04:49 09:53 10:25 WBC RBC Hgb Hct MCV Plt Count Lymph % (Auto) [place] % (Auto) Lymph # (Auto) [place] # (Auto) Seg Neutrophils % Seg Neuts % (Manual) Lymphocytes % (Manual) Seg Neutrophils # Seg Neutrophils # Man Lymphocytes # (Manual) PT INR ABG pH ABG pO2 ABG HCO3 34.7 H ABG O2 Saturation ABG Base Excess 7.9 H ABG Hemoglobin 11.0 L Oxyhemoglobin Sodium 136 L Potassium Chloride 97.7 L Carbon Dioxide 33 H BUN Creatinine 0.2 L Glucose 155 H POC Glucose Calcium Phosphorus Magnesium Total Creatine Kinase CK-MB (CK-2) Rel Index Troponin T 0.030 H C-Reactive Protein Total Protein Albumin LDL Cholesterol Direct Urine WBC (Auto) 04/08/22 04/08/22 04/08/22 11:19 17:47 18:06 WBC RBC Hgb Hct MCV Plt Count Lymph % (Auto) [place] % (Auto) Lymph # (Auto) [place] # (Auto) Seg Neutrophils % Seg Neuts % (Manual) Lymphocytes % (Manual) Seg Neutrophils # Seg Neutrophils # Man Lymphocytes # (Manual) PT INR ABG pH ABG pO2 ABG HCO3 ABG O2 Saturation ABG Base Excess ABG Hemoglobin Oxyhemoglobin Sodium Potassium Chloride Carbon Dioxide BUN Creatinine Glucose POC Glucose 121 H Calcium Phosphorus Magnesium Total Creatine Kinase 31 L 46 L CK-MB (CK-2) Rel Index 6.4 H 5.6 H Troponin T 0.030 H 0.031 H C-Reactive Protein Total Protein Albumin LDL Cholesterol Direct Urine WBC (Auto) 04/09/22 04/09/22 04/09/22 04:35 04:35 11:24 WBC 11.5 H RBC 3.16 L Hgb 9.9 L Hct 29.4 L MCV Plt Count 131 L Lymph % (Auto) [place] % (Auto) Lymph # (Auto) [place] # (Auto) Seg Neutrophils % Seg Neuts % (Manual) Lymphocytes % (Manual) Seg Neutrophils # Seg Neutrophils # Man Lymphocytes # (Manual) PT INR ABG pH ABG pO2 ABG HCO3 ABG O2 Saturation ABG Base Excess ABG Hemoglobin Oxyhemoglobin Sodium Potassium Chloride 97.1 L Carbon Dioxide 35 H BUN Creatinine < 0.2 L Glucose 145 H POC Glucose 147 H Calcium Phosphorus Magnesium Total Creatine Kinase CK-MB (CK-2) Rel Index Troponin T C-Reactive Protein Total Protein Albumin LDL Cholesterol Direct Urine WBC (Auto) 04/09/22 04/09/22 04/09/22 13:00 17:32 23:48 WBC RBC Hgb Hct MCV Plt Count Lymph % (Auto) [place] % (Auto) Lymph # (Auto) [place] # (Auto) Seg Neutrophils % Seg Neuts % (Manual) Lymphocytes % (Manual) Seg Neutrophils # Seg Neutrophils # Man Lymphocytes # (Manual) PT INR ABG pH ABG pO2 66.6 L ABG HCO3 38.2 H ABG O2 Saturation 94.4 L ABG Base Excess 10.7 H ABG Hemoglobin 10.7 L Oxyhemoglobin 92.8 L Sodium Potassium Chloride Carbon Dioxide BUN Creatinine Glucose POC Glucose 143 H 114 H Calcium Phosphorus Magnesium Total Creatine Kinase CK-MB (CK-2) Rel Index Troponin T C-Reactive Protein Total Protein Albumin LDL Cholesterol Direct Urine WBC (Auto) 04/10/22 04/10/22 04/10/22 04:48 04:48 05:34 WBC RBC 2.91 L Hgb 9.1 L Hct 27.7 L MCV 95 H Plt Count Lymph % (Auto) [place] % (Auto) Lymph # (Auto) [place] # (Auto) Seg Neutrophils % Seg Neuts % (Manual) Lymphocytes % (Manual) Seg Neutrophils # Seg Neutrophils # Man Lymphocytes # (Manual) PT INR ABG pH ABG pO2 ABG HCO3 ABG O2 Saturation ABG Base Excess ABG Hemoglobin Oxyhemoglobin Sodium Potassium Chloride 95.7 L Carbon Dioxide 38 H BUN Creatinine < 0.2 L Glucose 118 H POC Glucose 127 H Calcium Phosphorus Magnesium Total Creatine Kinase CK-MB (CK-2) Rel Index Troponin T C-Reactive Protein Total Protein Albumin LDL Cholesterol Direct Urine WBC (Auto) 04/10/22 04/11/22 04/11/22 23:10 04:15 04:15 WBC 17.2 H RBC 2.98 L Hgb 9.2 L Hct 27.9 L MCV Plt Count Lymph % (Auto) [place] % (Auto) Lymph # (Auto) [place] # (Auto) Seg Neutrophils % Seg Neuts % (Manual) Lymphocytes % (Manual) Seg Neutrophils # Seg Neutrophils # Man Lymphocytes # (Manual) PT INR ABG pH ABG pO2 ABG HCO3 ABG O2 Saturation ABG Base Excess ABG Hemoglobin Oxyhemoglobin Sodium Potassium Chloride 96.1 L Carbon Dioxide 35 H BUN Creatinine < 0.2 L Glucose 138 H POC Glucose 106 H Calcium 8.3 L Phosphorus Magnesium Total Creatine Kinase CK-MB (CK-2) Rel Index Troponin T C-Reactive Protein Total Protein Albumin LDL Cholesterol Direct Urine WBC (Auto) 04/11/22 04/11/22 04/11/22 05:31 13:18 16:20 WBC RBC Hgb Hct MCV Plt Count Lymph % (Auto) [place] % (Auto) Lymph # (Auto) [place] # (Auto) Seg Neutrophils % Seg Neuts % (Manual) Lymphocytes % (Manual) Seg Neutrophils # Seg Neutrophils # Man Lymphocytes # (Manual) PT INR ABG pH ABG pO2 57.8 L ABG HCO3 40.5 H ABG O2 Saturation 90.6 L ABG Base Excess 12.6 H ABG Hemoglobin 10.5 L Oxyhemoglobin 89.0 L Sodium Potassium Chloride Carbon Dioxide BUN Creatinine Glucose POC Glucose 129 H 132 H Calcium Phosphorus Magnesium Total Creatine Kinase CK-MB (CK-2) Rel Index Troponin T C-Reactive Protein Total Protein Albumin LDL Cholesterol Direct Urine WBC (Auto) 04/11/22 04/11/22 04/12/22 17:29 23:17 04:00 WBC 17.4 H RBC 2.96 L Hgb 9.0 L Hct 28.0 L MCV 95 H Plt Count Lymph % (Auto) [place] % (Auto) Lymph # (Auto) [place] # (Auto) Seg Neutrophils % Seg Neuts % (Manual) Lymphocytes % (Manual) Seg Neutrophils # Seg Neutrophils # Man Lymphocytes # (Manual) PT INR ABG pH ABG pO2 ABG HCO3 ABG O2 Saturation ABG Base Excess ABG Hemoglobin Oxyhemoglobin Sodium Potassium Chloride Carbon Dioxide BUN Creatinine Glucose POC Glucose 125 H 151 H Calcium Phosphorus Magnesium Total Creatine Kinase CK-MB (CK-2) Rel Index Troponin T C-Reactive Protein Total Protein Albumin LDL Cholesterol Direct Urine WBC (Auto) 04/12/22 04/12/22 04/12/22 04:00 17:03 23:39 WBC RBC Hgb Hct MCV Plt Count Lymph % (Auto) [place] % (Auto) Lymph # (Auto) [place] # (Auto) Seg Neutrophils % Seg Neuts % (Manual) Lymphocytes % (Manual) Seg Neutrophils # Seg Neutrophils # Man Lymphocytes # (Manual) PT INR ABG pH ABG pO2 ABG HCO3 ABG O2 Saturation ABG Base Excess ABG Hemoglobin Oxyhemoglobin Sodium Potassium Chloride 97.4 L Carbon Dioxide 37 H BUN Creatinine < 0.2 L Glucose 127 H POC Glucose 106 H 107 H Calcium Phosphorus Magnesium Total Creatine Kinase CK-MB (CK-2) Rel Index Troponin T C-Reactive Protein Total Protein Albumin LDL Cholesterol Direct Urine WBC (Auto) 04/13/22 04/13/22 04/13/22 04:30 04:30 17:39 WBC 14.1 H RBC 2.66 L Hgb 8.4 L Hct 25.5 L MCV 96 H Plt Count Lymph % (Auto) [place] % (Auto) Lymph # (Auto) [place] # (Auto) Seg Neutrophils % Seg Neuts % (Manual) Lymphocytes % (Manual) Seg Neutrophils # Seg Neutrophils # Man Lymphocytes # (Manual) PT INR ABG pH ABG pO2 ABG HCO3 ABG O2 Saturation ABG Base Excess ABG Hemoglobin Oxyhemoglobin Sodium Potassium Chloride 93.9 L Carbon Dioxide 39 H BUN Creatinine < 0.2 L Glucose POC Glucose 134 H Calcium Phosphorus 1.90 L Magnesium Total Creatine Kinase CK-MB (CK-2) Rel Index Troponin T C-Reactive Protein Total Protein Albumin LDL Cholesterol Direct Urine WBC (Auto) 04/14/22 04/14/22 04/14/22 05:03 05:03 09:10 WBC 15.6 H RBC 3.02 L Hgb 9.3 L Hct 28.8 L MCV 95 H Plt Count Lymph % (Auto) [place] % (Auto) Lymph # (Auto) [place] # (Auto) Seg Neutrophils % Seg Neuts % (Manual) Lymphocytes % (Manual) Seg Neutrophils # Seg Neutrophils # Man Lymphocytes # (Manual) PT INR ABG pH ABG pO2 66.9 L ABG HCO3 44.5 H ABG O2 Saturation ABG Base Excess 17.2 H ABG Hemoglobin 8.1 L Oxyhemoglobin 94.8 L Sodium Potassium Chloride 93.8 L Carbon Dioxide 42 H* BUN Creatinine < 0.2 L Glucose 117 H POC Glucose Calcium Phosphorus Magnesium Total Creatine Kinase CK-MB (CK-2) Rel Index Troponin T C-Reactive Protein Total Protein Albumin LDL Cholesterol Direct Urine WBC (Auto) 04/15/22 04/15/22 04/16/22 04:44 04:44 04:16 WBC 13.0 H 12.6 H RBC 3.19 L 3.09 L Hgb 9.6 L 9.5 L Hct 30.2 L 29.1 L MCV 95 H Plt Count 456 H Lymph % (Auto) [place] % (Auto) Lymph # (Auto) [place] # (Auto) Seg Neutrophils % Seg Neuts % (Manual) Lymphocytes % (Manual) Seg Neutrophils # Seg Neutrophils # Man Lymphocytes # (Manual) PT INR ABG pH ABG pO2 ABG HCO3 ABG O2 Saturation ABG Base Excess ABG Hemoglobin Oxyhemoglobin Sodium Potassium Chloride 95.5 L Carbon Dioxide 37 H BUN Creatinine < 0.2 L Glucose POC Glucose Calcium Phosphorus Magnesium Total Creatine Kinase CK-MB (CK-2) Rel Index Troponin T C-Reactive Protein Total Protein Albumin LDL Cholesterol Direct Urine WBC (Auto) 04/16/22 04/16/22 04/16/22 04:16 05:00 14:00 WBC RBC Hgb Hct MCV Plt Count Lymph % (Auto) [place] % (Auto) Lymph # (Auto) [place] # (Auto) Seg Neutrophils % Seg Neuts % (Manual) Lymphocytes % (Manual) Seg Neutrophils # Seg Neutrophils # Man Lymphocytes # (Manual) PT INR ABG pH 7.324 L ABG pO2 55.6 L ABG HCO3 45.3 H ABG O2 Saturation 87.1 L ABG Base Excess 16.6 H ABG Hemoglobin 8.6 L Oxyhemoglobin 85.7 L Sodium Potassium Chloride 97.6 L Carbon Dioxide 36 H BUN Creatinine < 0.2 L Glucose 109 H POC Glucose 120 H Calcium Phosphorus Magnesium Total Creatine Kinase CK-MB (CK-2) Rel Index Troponin T C-Reactive Protein Total Protein Albumin LDL Cholesterol Direct Urine WBC (Auto) 04/17/22 04/17/22 04/17/22 04:36 04:36 04:57 WBC 14.4 H RBC 3.08 L Hgb 9.4 L Hct 29.0 L MCV Plt Count Lymph % (Auto) [place] % (Auto) Lymph # (Auto) [place] # (Auto) Seg Neutrophils % Seg Neuts % (Manual) Lymphocytes % (Manual) Seg Neutrophils # Seg Neutrophils # Man Lymphocytes # (Manual) PT INR ABG pH ABG pO2 ABG HCO3 ABG O2 Saturation ABG Base Excess ABG Hemoglobin Oxyhemoglobin Sodium Potassium Chloride 95.9 L Carbon Dioxide 39 H BUN Creatinine < 0.2 L Glucose 140 H POC Glucose 137 H Calcium 8.3 L Phosphorus Magnesium Total Creatine Kinase CK-MB (CK-2) Rel Index Troponin T C-Reactive Protein Total Protein Albumin LDL Cholesterol Direct Urine WBC (Auto) 04/17/22 04/17/22 04/18/22 09:15 18:01 04:20 WBC 11.2 H RBC 3.00 L Hgb 9.3 L Hct 28.6 L MCV 95 H Plt Count Lymph % (Auto) [place] % (Auto) Lymph # (Auto) [place] # (Auto) Seg Neutrophils % Seg Neuts % (Manual) Lymphocytes % (Manual) Seg Neutrophils # Seg Neutrophils # Man Lymphocytes # (Manual) PT INR ABG pH 7.345 L ABG pO2 ABG HCO3 48.2 H ABG O2 Saturation ABG Base Excess 19.2 H ABG Hemoglobin 9.7 L Oxyhemoglobin Sodium Potassium Chloride Carbon Dioxide BUN Creatinine Glucose POC Glucose 129 H Calcium Phosphorus Magnesium Total Creatine Kinase CK-MB (CK-2) Rel Index Troponin T C-Reactive Protein Total Protein Albumin LDL Cholesterol Direct Urine WBC (Auto) 04/18/22 04/18/22 04/18/22 04:20 17:35 23:50 WBC RBC Hgb Hct MCV Plt Count Lymph % (Auto) [place] % (Auto) Lymph # (Auto) [place] # (Auto) Seg Neutrophils % Seg Neuts % (Manual) Lymphocytes % (Manual) Seg Neutrophils # Seg Neutrophils # Man Lymphocytes # (Manual) PT INR ABG pH ABG pO2 ABG HCO3 ABG O2 Saturation ABG Base Excess ABG Hemoglobin Oxyhemoglobin Sodium Potassium Chloride 96.8 L Carbon Dioxide 43 H* BUN 22 H Creatinine < 0.2 L Glucose 137 H POC Glucose 128 H 123 H Calcium 8.2 L Phosphorus Magnesium Total Creatine Kinase CK-MB (CK-2) Rel Index Troponin T C-Reactive Protein Total Protein Albumin LDL Cholesterol Direct Urine WBC (Auto) 04/19/22 04/19/22 04/19/22 04:08 04:08 08:50 WBC 16.8 H RBC 3.18 L Hgb 9.8 L Hct 30.1 L MCV 95 H Plt Count Lymph % (Auto) [place] % (Auto) Lymph # (Auto) [place] # (Auto) Seg Neutrophils % Seg Neuts % (Manual) Lymphocytes % (Manual) Seg Neutrophils # Seg Neutrophils # Man Lymphocytes # (Manual) PT INR ABG pH ABG pO2 56.0 L ABG HCO3 47.1 H ABG O2 Saturation 93.3 L ABG Base Excess 20.1 H ABG Hemoglobin 8.0 L Oxyhemoglobin 91.8 L Sodium Potassium Chloride 96.2 L Carbon Dioxide 40 H BUN 24 H Creatinine < 0.2 L Glucose 125 H POC Glucose Calcium 8.3 L Phosphorus Magnesium Total Creatine Kinase CK-MB (CK-2) Rel Index Troponin T C-Reactive Protein Total Protein Albumin LDL Cholesterol Direct Urine WBC (Auto) 04/19/22 04/20/22 04/20/22 12:02 00:40 04:49 WBC 14.7 H RBC 3.36 L Hgb 10.3 L Hct 32.0 L MCV 95 H Plt Count Lymph % (Auto) [place] % (Auto) Lymph # (Auto) [place] # (Auto) Seg Neutrophils % Seg Neuts % (Manual) Lymphocytes % (Manual) Seg Neutrophils # Seg Neutrophils # Man Lymphocytes # (Manual) PT INR ABG pH ABG pO2 ABG HCO3 ABG O2 Saturation ABG Base Excess ABG Hemoglobin Oxyhemoglobin Sodium Potassium Chloride Carbon Dioxide BUN Creatinine Glucose POC Glucose 124 H 140 H Calcium Phosphorus Magnesium Total Creatine Kinase CK-MB (CK-2) Rel Index Troponin T C-Reactive Protein Total Protein Albumin LDL Cholesterol Direct Urine WBC (Auto) 04/20/22 04/20/22 04/21/22 05:36 11:40 04:05 WBC RBC Hgb Hct MCV Plt Count Lymph % (Auto) [place] % (Auto) Lymph # (Auto) [place] # (Auto) Seg Neutrophils % Seg Neuts % (Manual) Lymphocytes % (Manual) Seg Neutrophils # Seg Neutrophils # Man Lymphocytes # (Manual) PT INR ABG pH ABG pO2 ABG HCO3 ABG O2 Saturation ABG Base Excess ABG Hemoglobin Oxyhemoglobin Sodium Potassium Chloride 93.4 L Carbon Dioxide 40 H BUN 25 H Creatinine < 0.2 L Glucose 122 H POC Glucose 125 H 128 H Calcium Phosphorus Magnesium Total Creatine Kinase CK-MB (CK-2) Rel Index Troponin T C-Reactive Protein Total Protein Albumin LDL Cholesterol Direct Urine WBC (Auto) 04/21/22 04/22/22 04/22/22 10:31 05:03 05:03 WBC 12.6 H 12.7 H RBC 2.83 L 2.96 L Hgb 8.6 L 9.0 L Hct 26.9 L 28.0 L MCV 95 H 95 H Plt Count Lymph % (Auto) [place] % (Auto) Lymph # (Auto) [place] # (Auto) Seg Neutrophils % Seg Neuts % (Manual) Lymphocytes % (Manual) Seg Neutrophils # Seg Neutrophils # Man Lymphocytes # (Manual) PT INR ABG pH ABG pO2 ABG HCO3 ABG O2 Saturation ABG Base Excess ABG Hemoglobin Oxyhemoglobin Sodium Potassium Chloride 93.9 L Carbon Dioxide 43 H* BUN 23 H Creatinine < 0.2 L Glucose 137 H POC Glucose Calcium Phosphorus Magnesium Total Creatine Kinase CK-MB (CK-2) Rel Index Troponin T C-Reactive Protein Total Protein Albumin LDL Cholesterol Direct Urine WBC (Auto) 04/22/22 04/23/22 04/24/22 08:34 09:40 04:29 WBC 14.4 H RBC 2.74 L Hgb 8.4 L Hct 25.7 L MCV Plt Count Lymph % (Auto) [place] % (Auto) Lymph # (Auto) [place] # (Auto) Seg Neutrophils % Seg Neuts % (Manual) Lymphocytes % (Manual) Seg Neutrophils # Seg Neutrophils # Man Lymphocytes # (Manual) PT INR ABG pH ABG pO2 54.1 L 56.8 L ABG HCO3 48.5 H 49.0 H ABG O2 Saturation 92.1 L 90.9 L ABG Base Excess 20.9 H 20.8 H ABG Hemoglobin 9.0 L 8.4 L Oxyhemoglobin 90.6 L 89.5 L Sodium Potassium Chloride Carbon Dioxide BUN Creatinine Glucose POC Glucose Calcium Phosphorus Magnesium Total Creatine Kinase CK-MB (CK-2) Rel Index Troponin T C-Reactive Protein Total Protein Albumin LDL Cholesterol Direct Urine WBC (Auto) 04/24/22 04/25/22 04/26/22 04:29 09:00 04:22 WBC RBC 2.88 L Hgb 8.9 L Hct 26.8 L MCV Plt Count Lymph % (Auto) [place] % (Auto) Lymph # (Auto) [place] # (Auto) Seg Neutrophils % Seg Neuts % (Manual) Lymphocytes % (Manual) Seg Neutrophils # Seg Neutrophils # Man Lymphocytes # (Manual) PT INR ABG pH 7.457 H ABG pO2 66.7 L ABG HCO3 42.6 H ABG O2 Saturation ABG Base Excess 15.3 H ABG Hemoglobin 8.8 L Oxyhemoglobin 94.1 L Sodium Potassium Chloride 90.7 L Carbon Dioxide 40 H BUN Creatinine < 0.2 L Glucose 133 H POC Glucose Calcium Phosphorus Magnesium Total Creatine Kinase CK-MB (CK-2) Rel Index Troponin T C-Reactive Protein Total Protein Albumin LDL Cholesterol Direct Urine WBC (Auto) 04/26/22 04/29/22 04/29/22 04:22 04:18 04:18 WBC 13.5 H RBC 2.96 L Hgb 8.9 L Hct 27.7 L MCV Plt Count Lymph % (Auto) [place] % (Auto) Lymph # (Auto) [place] # (Auto) Seg Neutrophils % Seg Neuts % (Manual) Lymphocytes % (Manual) Seg Neutrophils # Seg Neutrophils # Man Lymphocytes # (Manual) PT INR ABG pH ABG pO2 ABG HCO3 ABG O2 Saturation ABG Base Excess ABG Hemoglobin Oxyhemoglobin Sodium Potassium Chloride 93.2 L 95.2 L Carbon Dioxide 37 H 38 H BUN Creatinine < 0.2 L < 0.2 L Glucose 114 H 116 H POC Glucose Calcium Phosphorus Magnesium Total Creatine Kinase CK-MB (CK-2) Rel Index Troponin T C-Reactive Protein Total Protein Albumin LDL Cholesterol Direct Urine WBC (Auto) 05/02/22 05/03/22 05/03/22 04:29 04:02 04:02 WBC 12.9 H 12.3 H RBC 2.82 L 2.83 L Hgb 8.4 L 8.4 L Hct 26.2 L 26.0 L MCV Plt Count Lymph % (Auto) [place] % (Auto) Lymph # (Auto) [place] # (Auto) Seg Neutrophils % Seg Neuts % (Manual) Lymphocytes % (Manual) Seg Neutrophils # Seg Neutrophils # Man Lymphocytes # (Manual) PT INR ABG pH ABG pO2 ABG HCO3 ABG O2 Saturation ABG Base Excess ABG Hemoglobin Oxyhemoglobin Sodium 134 L Potassium Chloride 90.5 L Carbon Dioxide 38 H BUN 21 H Creatinine < 0.2 L Glucose 126 H POC Glucose Calcium Phosphorus Magnesium Total Creatine Kinase CK-MB (CK-2) Rel Index Troponin T C-Reactive Protein Total Protein Albumin LDL Cholesterol Direct Urine WBC (Auto) 05/03/22 05/03/22 05/04/22 12:02 17:42 09:36 WBC RBC Hgb Hct MCV Plt Count Lymph % (Auto) [place] % (Auto) Lymph # (Auto) [place] # (Auto) Seg Neutrophils % Seg Neuts % (Manual) Lymphocytes % (Manual) Seg Neutrophils # Seg Neutrophils # Man Lymphocytes # (Manual) PT INR ABG pH ABG pO2 55.4 L ABG HCO3 43.7 H ABG O2 Saturation 87.4 L ABG Base Excess 16.1 H ABG Hemoglobin 9.1 L Oxyhemoglobin 85.7 L Sodium Potassium Chloride Carbon Dioxide BUN Creatinine Glucose POC Glucose 139 H 131 H Calcium Phosphorus Magnesium Total Creatine Kinase CK-MB (CK-2) Rel Index Troponin T C-Reactive Protein Total Protein Albumin LDL Cholesterol Direct Urine WBC (Auto) 05/04/22 05/04/22 05/05/22 17:08 23:10 04:23 WBC 14.4 H RBC 2.75 L Hgb 8.2 L Hct 25.2 L MCV Plt Count Lymph % (Auto) [place] % (Auto) Lymph # (Auto) [place] # (Auto) Seg Neutrophils % Seg Neuts % (Manual) Lymphocytes % (Manual) Seg Neutrophils # Seg Neutrophils # Man Lymphocytes # (Manual) PT INR ABG pH ABG pO2 ABG HCO3 ABG O2 Saturation ABG Base Excess ABG Hemoglobin Oxyhemoglobin Sodium Potassium Chloride Carbon Dioxide BUN Creatinine Glucose POC Glucose 124 H 115 H Calcium Phosphorus Magnesium Total Creatine Kinase CK-MB (CK-2) Rel Index Troponin T C-Reactive Protein Total Protein Albumin LDL Cholesterol Direct Urine WBC (Auto) 05/05/22 05/05/22 05/06/22 04:23 21:39 05:13 WBC RBC Hgb Hct MCV Plt Count Lymph % (Auto) [place] % (Auto) Lymph # (Auto) [place] # (Auto) Seg Neutrophils % Seg Neuts % (Manual) Lymphocytes % (Manual) Seg Neutrophils # Seg Neutrophils # Man Lymphocytes # (Manual) PT INR ABG pH ABG pO2 ABG HCO3 ABG O2 Saturation ABG Base Excess ABG Hemoglobin Oxyhemoglobin Sodium Potassium Chloride 91.3 L Carbon Dioxide 38 H BUN 23 H Creatinine < 0.2 L Glucose 128 H POC Glucose 141 H 136 H Calcium Phosphorus Magnesium Total Creatine Kinase CK-MB (CK-2) Rel Index Troponin T C-Reactive Protein Total Protein Albumin LDL Cholesterol Direct Urine WBC (Auto) 05/07/22 05/07/22 05/08/22 05:29 22:15 05:48 WBC RBC Hgb Hct MCV Plt Count Lymph % (Auto) [place] % (Auto) Lymph # (Auto) [place] # (Auto) Seg Neutrophils % Seg Neuts % (Manual) Lymphocytes % (Manual) Seg Neutrophils # Seg Neutrophils # Man Lymphocytes # (Manual) PT INR ABG pH ABG pO2 ABG HCO3 ABG O2 Saturation ABG Base Excess ABG Hemoglobin Oxyhemoglobin Sodium Potassium Chloride Carbon Dioxide BUN Creatinine Glucose POC Glucose 125 H 142 H 122 H Calcium Phosphorus Magnesium Total Creatine Kinase CK-MB (CK-2) Rel Index Troponin T C-Reactive Protein Total Protein Albumin LDL Cholesterol Direct Urine WBC (Auto) 05/08/22 05/08/22 05/09/22 14:04 21:48 15:15 WBC RBC 2.61 L Hgb 7.7 L Hct 23.2 L MCV Plt Count Lymph % (Auto) 8.1 L [place] % (Auto) Lymph # (Auto) 0.9 L [place] # (Auto) Seg Neutrophils % 86.1 H Seg Neuts % (Manual) Lymphocytes % (Manual) Seg Neutrophils # 9.2 H Seg Neutrophils # Man Lymphocytes # (Manual) PT INR ABG pH ABG pO2 ABG HCO3 ABG O2 Saturation ABG Base Excess ABG Hemoglobin Oxyhemoglobin Sodium Potassium Chloride Carbon Dioxide BUN Creatinine Glucose POC Glucose 112 H 107 H Calcium Phosphorus Magnesium Total Creatine Kinase CK-MB (CK-2) Rel Index Troponin T C-Reactive Protein Total Protein Albumin LDL Cholesterol Direct Urine WBC (Auto) 05/09/22 05/09/22 05/09/22 15:15 15:39 21:15 WBC RBC Hgb Hct MCV Plt Count Lymph % (Auto) [place] % (Auto) Lymph # (Auto) [place] # (Auto) Seg Neutrophils % Seg Neuts % (Manual) Lymphocytes % (Manual) Seg Neutrophils # Seg Neutrophils # Man Lymphocytes # (Manual) PT INR ABG pH ABG pO2 ABG HCO3 ABG O2 Saturation ABG Base Excess ABG Hemoglobin Oxyhemoglobin Sodium Potassium Chloride 92.9 L Carbon Dioxide 40 H BUN Creatinine < 0.2 L Glucose 141 H POC Glucose 118 H 112 H Calcium Phosphorus Magnesium Total Creatine Kinase CK-MB (CK-2) Rel Index Troponin T C-Reactive Protein Total Protein Albumin LDL Cholesterol Direct Urine WBC (Auto) 05/10/22 15:14 WBC RBC Hgb Hct MCV Plt Count Lymph % (Auto) [place] % (Auto) Lymph # (Auto) [place] # (Auto) Seg Neutrophils % Seg Neuts % (Manual) Lymphocytes % (Manual) Seg Neutrophils # Seg Neutrophils # Man Lymphocytes # (Manual) PT INR ABG pH ABG pO2 ABG HCO3 ABG O2 Saturation ABG Base Excess ABG Hemoglobin Oxyhemoglobin Sodium Potassium Chloride Carbon Dioxide BUN Creatinine Glucose POC Glucose 113 H Calcium Phosphorus Magnesium Total Creatine Kinase CK-MB (CK-2) Rel Index Troponin T C-Reactive Protein Total Protein Albumin LDL Cholesterol Direct Urine WBC (Auto) Allied health notes reviewed: RT
[2022-05-11] MEDS: INSULIN LISPRO 100 UNIT/ML SUB-Q SCH ×2 (05:24→19:19)
[2022-05-11] MEDS: METOPROLOL TARTRATE 25 MG TAB FEEDTUBE SCH ×3 (05:25→19:18)
[2022-05-11] MEDS: HEPARIN 5,000 UNIT/1 ML VIAL SUB-Q SCH ×3 (05:25→22:00)
[2022-05-11] MEDS: ALBUTEROL 2.5 MG/3 ML NEBU IH SCH ×2 (07:43→19:43)
[2022-05-11] MEDS: POLYETHYLENE GLYCOL 3350 17 GM POWDER PO SCH (09:10)
[2022-05-11] MEDS: SENNOSIDES ORAL LIQD 8.8 MG/5 ML ORAL LIQD FEEDTUBE SCH ×2 (09:10→22:00)
[2022-05-11] MEDS: DOCUSATE SODIUM 100 MG/10 ML ORAL LIQD FEEDTUBE SCH ×2 (09:11→22:01)
[2022-05-11] MEDS: FAMOTIDINE 20 MG TAB FEEDTUBE SCH ×2 (09:11→22:01)
[2022-05-11] MEDS: QUEtiapine 25 MG TAB FEEDTUBE SCH ×2 (09:11→22:01)
[2022-05-11] MEDS: ACETYLCYSTEINE 20% 200 MG/1 ML *FOR INHALATION USE INHALATION SCH ×2 (09:45→19:46)
--- NOTE | 2022-05-11 11:59 | Discharge Summary ---
<ALEK SMITH - Last Filed: 05/11/22 21:05> Providers - Providers Date of Admission: 04/02/22 23:54 Date of discharge: 05/11/22 Attending physician: DIXIE BROWN MD 04/02/22 23:53 Consult to Physician [CONS] Routine Comment: Dr. Hollis spoke with Dr. Valdivia @ [phone] Consulting Provider: KARAN IBRAHIM Physician Instructions: Reason For Exam: Acute resp. Failure 04/02/22 23:54 Consult to Dietitian/Nutrition [CONS] Routine Physician Instructions: Reason For Exam: Reason for Consult: Diet education 04/03/22 06:46 Consult to Cardiology [CONS] Routine Consulting Provider: INA BARILLAS Reason For Exam: Elevated troponin 04/03/22 08:03 Consult to Dietitian/Nutrition [CONS] Routine Physician Instructions: Reason For Exam: Reason for Consult: Write/Manage Tube Feeding 04/03/22 17:08 Consult to Physician [CONS] Routine Comment: Consulting Provider: TRESA AUSTIN Physician Instructions: Reason For Exam: Pneumonia 04/09/22 15:09 Consult to Physician [CONS] Routine Comment: Consulting Provider: TONI GOODEN Physician Instructions: Spoke to Dr. Gooden/tirso Reason For Exam: Tracheostomy & PEG placement Primary care physician: LÓPEZ PHILLIPS Hospitalization Reason for admission: acute hypoxemic respiratory failure 2/2 pneumonia Condition: Stable Hospital course: This is a 57-year-old male with known history of ALS, recently hospitalized at [facility] admitted for acute hypoxemic respiratory failure 2/2 pneumonia Hospital Course to Date: 04/03: Intubated and Sedated on versed gtt, RASS-5. CT head/brain noted with no acute intracranial abnormality. Plan to initiated precededx gtt and wean off versed for a RASS goal of 0 to -2. CT chect also reviewed, findings are most consistent with acute bronchopneumonia. Continue empiric IV Abx, vent adjustment per CCM. ID consulted. Continue to F/U on cultures. Titrate pressor for MAP above 65. Medical records requested from [facility]. 04/04: Remains stable on the vent, easily arousable on precedex gtt, not following commands. Plan for SAT/SBT today. PRN analgesia for CPOT greater than 3. Fevers improved, cultures and procal pending. Continue current IV abx, ID also consulted. Remains on low dose pressors, titrate pressors for a MAP above 65. 04/05: Long discussion with family with use of translation phone with CCM regarding goals of care. Family to have meeting amongst themselves and informed care team of decisions. Fentanyl drip added for respiratory distress. Remains on Precedex drip. Antibiotics per ID. Given 2L NS bolus with levophed gtt 04/06: Family discussion with Dr. Grayson for goals of care. CXR shows possible mucus plug, continue CPT as FiO2 is being able to be weaned. Potassium repleted. Weaning fentnyl gtt. 04/07: Ultrasound guided thoracentesis today scheduled, inadequate amount of pleural effusion on so not completed. Patient was started on Levophed overnight which was weaned off this morning however had to be started twice a day. Remains on fentanyl and Precedex. Cardiology discontinued BB and ACEi in setting of hypotension. 04/08: COVID-19 PCR negative. Routine EEG ordered by cardiology which showed ST changes, cardiology aware. They will continue conservative treatment. Repeat troponins 0.030 which are less than admit of 0.048. Dr. Grayson had a long discussion with with the use of historic interpreter today at bedside and has not made a decision regarding goals of care. Possible consult to surgery for trach/PEG early next week. Continues to require Precedex and fentanyl drip for sedation. Carvedilol/lisinopril discontinued as patient is continuously on Levophed. 04/09: No acute events reported overnight, remains on fentanyl, Precedex and Levophed drips. Dr. Grayson and Dr. Pineda updated family at bedside extensively today. Consulted surgery for trach/PEG. COVID-19 PCR negative. 04/10: Patient noted to have desaturation episodes, FiO2 increased slightly to 35%. Will add Mucomyst. Remains on fentanyl and Precedex. Off of Levophed. Surgery consulted for trach/PEG. 04/11: FiO2 increased over night likely related to hypoxia, continues on fent gtt, weaning precedex gtt as he is also on Seroquel. Will d/w CCM re scheduled or prn oxycodone 04/12: Periods of hypoxia and tachycardia this am. Symptoms improved post deep suction and tracheal lavage, Repeat CXR noted with no significant change. Continue CPT and mucomyst. Plan for possible trach/PEG tomorrow by general surgery. 04/13: Remains stable on the vent. Patient is wake and tracking but does not follow simple commands. No report of hypoxia from overnight, continue CPT and mucomyst. Plan for track and PEG today by General Surgery. Plan for LTAC placement post procedure, case management to arrange. 04/14: VIRGILIO overnight, Trach and PEG postponed for today by general surgery. Plan for LTAC placement post procedure, case management to arrange. 04/15: S/p Trach and PEG. Up to 80% FiO2 this am, this am CXR noted suggesting possible mucus plug. D/W CCM plan for bronch today. Continue CPT and mucomyst. Plan of care thoroughly discussed with patient's and son (who translated for ) at the bedside. Per , rn complex care had already discussed the risks and benefits of the procedure yesterday. She verbalized understanding and agreed with procedure and current care plan, consent signed. Okay to use PEG-tube for meds this am, resume TF once okay by general Surgery. Case management to arrange LTAC placement. 04/16: s/p Bronchocopy by CCM. FiO2 down to 60%, angela 10 this am. This am CXR with moderate improvement. Continue CPT and mucomyst, wean Fio2 as tolerated for SPO2 above 92%. Patient is tolerating TF, advance to goal as ordered. Possible LTAC placement, case management to arrange. 04/17: VIRGILIO overnight. remains stable on the vent, recent CXR and this am ABG noted. Continue CPT and mucomyst, wean Fio2 as tolerated. 04/18: Remains stable on the vent, Fio2 down to 55% and peep of 8 this am. Continue to wean as tolerated, CPT, and mucomyst. Dsiposition- LTAC placement, case management to arrange. 04/19: No acute events overnight. Continue current management. 04/20: No acute events overnight, continue current management 04/21: Patient had chest ultrasound which showed trace pleural effusions, chest x-ray improved after the addition of Mucomyst yesterday. FiO2 55-65%. No acute events overnight. more interactive today. 04/22: Seroquel changed to BID, FiO2 was increased to 60%. RT increased FIO2 to 100 d/t desaturation into the 80s but was able to wean down. CCM increased PEEP and decreased FiO2. 04/23: CCM increase PEEP, no acute events reported overnight. 04/24: Spoke to RT about decreasing FiO2 as tolerated. No acute events reported overnight. Continue supportive management. 04/25: Weaning as tolerated. no acute events overnight. RT to attempt CPAP again today 04/26: VIRGILIO overnight. Patient failed PSV trial again this morning. Continue supportive management and daily PST trial. 04/27: Patient failed PSV trial again this am due to episodes of apnea. Continue daily PSV trial as tolerated. Case management to arrange LTAC placement 04/28: Remains stable. Continue daily PSV trial as tolerated. Awaiting approval for LTAC 04/29: VIRGILIO overnight. Continue daily PSV trial. Awaiting approval for LTAC, case management to arrange. 04/30: Patient continue to fail PSV trial. Per case management patient was denied for LTAC, now possible SNF placement. Case managemen to arrange. Continue supportive measures and daily PSV trial as tolerated. 05/01: VIRGILIO overnight. Continue supportive measures and daily PSV trial as tolerated. Possible SNF placement. 05/02: Continue supportive measures and daily PSV trial as tolerated. Possible SNF placement, case management to arrange 05/03: no acute events overnight, CM arranging home vent setup. Family declined SNF. 05/04: RN/RT reports thin secretions, increase in FiO2 for decreased oxygen on ABG. No acute events overnight. 05/05: Family scheduled for teaching session today at 2pm. Increase in FiO2 overnight to 45%. Awaiting vent setup for home care for ventilation secondary to tracheostomy. 05/06: No acute events reported overnight, T-max 100.9. FiO2 45%. Awaiting discharge home with vent when teaching is completed 05/07: No acute events reported overnight, Awaiting discharge home with vent when teaching is completed 05/08: No acute events reported overnight, Awaiting discharge home with vent when teaching is completed 05/09: no acute events reported overnight. Ordered routine labs today. Family continuing with vent training. Anticipate discharge home this week possibly on Tuesday. 05/10: VIRGILIO overnight. Continue current supportive measures and family training at the bedside. Plan for discharge home tomorrow. 05/11: Discharge home today. retail support specialist at 12pm Assessment and Plan #Acute Hypoxemic Respiratory Failure 2/ #Acute Bronchopneumonia - Intubated in the ED on 04/02 for hypoxemia and airway protection - 04/14 s/p Trach and PEG - 04/15 CXR reviewed complete opacity of the righ side suggesting possible mucus plug. See report for detail - 04/15 s/p Bronchoscopy by [facility] - Vent setting: PRVC-40%,10,14,400 - No ABG this am - [facility] consulted, appreciate recommendations - Multiple failed vent wean, now - Continue daily PSVT as tolerated - Continue CPT and mucomyst per [facility] - VAP bundle addressed - Aspiration precaution HOB above 30 - PRN ABG and CXR per CCM - Continue SPO2 monitoring for SPO2 goal above 92% #Sepsis #Acute Bronchopneumonia #HCAP #Leukocytosis - CXR shows moderate to large layering effusion on the right, see report for full detail - CT chest also reviewed, findings are most consistent with acute bronchopneumonia. See report for full detail - Patient was recent hospitalized for pneumonia - Patient remains afebrile - Tracheal aspirate with Pseudomonas aeruginosa, Enterobacter aerogenes - 04/02 blood culture with bacillus species, 04/05 blood culture NGTD - Patient completed [id number] of Cefepine - CRP 31.6, procalcitonin 0.08 - MRSA negative - Daily CBC monitor - ID signed off #Suspect ischemic coronary artery disease #h/o cardiomyopathy - Low BP probably due to hypovolemia vs sedation vs infectious process - s/p Levophed gtt - Elevated troponin possibly a type II troponin leak - Cardiology consulted, appreciated recommendations - Echocardiogram shows ejection fraction of 40 to 45%, mild global hypokinesis of left ventricle - Continue BB - Continue blood pressure monitor per protocol - Maintain MAP above 65 - On heparin SubQ #H/o Amyotrophic Lateral Sclerosis #Acute Metabolic Encephalopathy-resolved #Nonverbal at Baseline - Presented with AMS, per family patient is nonverbal at baseline but responsive - CT head/Brain with no acute intracranial process - Off sedation. Awake and calm - Continue Seroquel per [facility] - Avoid benzodiazepine to reduce the possibility of delirium - PRN analgesia for CPOT greater than 3 - Maintenance of sleep-wake cycle #Thrombocytopenia-resolved - Continue to trend plt - On heparin subQ - Monitor for s/s of any active bleeding #Hypernatremia-resolved - Monitor and replace electrolytes as needed - Continue to trend BMP #Protein Caloric Malnutrition - Albumin 2.7, Total protein 4.6 - 04/15 s/p EPG-Tube placement - Continue enteral nutrition - Nutrition consulted #Constipation - Noted on CXR and KUB - last BM 04/27 - Continue BR #GI/DVT Prophylaxis - PPI- Pepcid - Heparin SubQ - SCDs to bilateral lower extremities while in bed #Advance Care Planning - Disease education data, care plan, diagnoses, and prognosis were discussed patient's , Carly Lopez, and patient daughter, Kaylee Wraren, who translated for #[phone]. They reported that patient was following at [facility] for his ALS and during recent hospitalization at [facility] they were told nothing else can be offered to patient at this time and patient was discharge home with home hospice and PO morphine. First hospice visit was on , however, patient became unresponsive yesterday and they brought in to the hospital. - Goal of care and code status were also addressed at that time. Family wants to wait for a couple days to see how patient respond to current treatment before making a decision. All questions and concerns were addressed at this time. Patient family acknowledged understanding and agreement with care plan. - Patient remains a FULL CODE status -04/05: Discussion at bedside with interpreting service with Dr. Valdivia and family state they would discuss next steps amongst themselves and let healthcare team know of decisions -04/06: extensive discussion with family ( and son) with Dr. Grayson regarding goals of care -04/08: Extensive discussion with with the use of historic interpreter line regarding goals of care; no decision made. Possible consult to surgery for trach/PEG early next week. -04/09: Discussion with and her sister with Dr. Grayson and then with Dr. Pineda-> Consulted surgery for trach/peg -04/30 Insurance Denied LTAC, plan for possible SNF placemenet now. Case management to arrange -Family declined SNF, discharge home with ventilator and HHC tomorrow The high probability of a clinically significant, sudden or life threatening deterioration of the [multiple] system(s) required my full and direct attention, intervention and personal management. The aggregate critical care time was [60] minutes. This time is in addition to time spent performing reported procedures but includes the following: [x] Data Review and interpretation [x] Patient assessment and monitoring of vital signs [x] Documentation [x] Medication orders and management Disposition Plan: ICU Total Time Spent with Patient (Minutes): 60 Disposition: 01 HOME / SELF CARE / HOMELESS Final Discharge Diagnosis (Prints w/discharge instructions): Respiratory Failure Vent Dependent. Acute Bronchopneumonia. Amyotrophic Lateral Sclerosis Time spent for discharge: 35 Core Measure Documentation - Palliative Care Palliative Care/ Comfort Measures: Not Applicable - Core Measures Any of the following diagnoses?: none Exam - Physical Exam Narrative exam: General appearance: Present: no acute distress, cachectic, other (Trach and on the vent.Awake and tracking, following simple commands) - EENT Eyes: Present: PERRL - Neck Neck: Present: normal ROM - Respiratory Respiratory effort: normal Respiratory: bilateral: rhonchi - Cardiovascular Rhythm: regular Heart Sounds: Present: S1 & S2 - Extremities Extremities: no ischemia, pulses intact, pulses symmetrical Peripheral Pulses: within normal limits - Abdominal General gastrointestinal: soft, non-distended, normal bowel sounds - Integumentary Integumentary: Present: warm, dry - Psychiatric Psychiatric: other (Trach and on the vent. Awake and tracking, following simple commands) - Neurologic Neurologic: other (Trach and on the vent. Awake and tracking, following simple commands) - Allied Health Allied health notes reviewed: nursing, case management - Constitutional Vitals: Temp Pulse Resp BP Pulse Ox 97.7 F 110 H 14 88/62 97 05/11/22 08:00 05/11/22 10:00 05/11/22 10:00 05/11/22 10:00 05/11/22 10:00 Plan Activity: fall precautions Diet: other (Tube Feeding) Wound: open to air Special Instructions: home oxygen via (Vent dependent), home health RN Care Plan Goals: Follow up with primary care provider within 7 to 10 days Follow up with: LÓPEZ PHILLIPS MD [Primary Care Provider] - 7 Days CARLOS VALDIVIA MD [Staff Physician] - 7 Days Prescriptions: Docusate Sodium [Colace ORAL LIQ] 100 mg FEEDTUBE BID 90 Days oral.liqd Metoprolol [Lopressor TAB] 12.5 mg FEEDTUBE Q6HR 90 Days tablet Acetylcysteine 20% (Rx Only) [Mucomyst (Rx Entry Only)] 200 mg INHALATION Q8HR #90 Famotidine [Pepcid] 20 mg FEEDTUBE BID 90 Days tablet ALBUTEROL NEB's [Proventil 0.083% NEBS] 5 mg IH Q12HRT 90 Days nebu Sennosides Oral Liqd [Senokot] 17.6 mg FEEDTUBE Q12HR 90 Days oral.liqd QUEtiapine [SEROquel] 50 mg FEEDTUBE BID #90 tablet <DIXIE BROWN - Last Filed: 05/12/22 07:08> Providers - Providers Date of Admission: 04/02/22 23:54 Attending physician: DIXIE BROWN MD 04/02/22 23:53 Consult to Physician [CONS] Routine Comment: Dr. Hollis spoke with Dr. Valdivia @ [phone] Consulting Provider: KARAN IBRAHIM Physician Instructions: Reason For Exam: Acute resp. Failure 04/02/22 23:54 Consult to Dietitian/Nutrition [CONS] Routine Physician Instructions: Reason For Exam: Reason for Consult: Diet education 04/03/22 06:46 Consult to Cardiology [CONS] Routine Consulting Provider: INA BARILLAS Reason For Exam: Elevated troponin 04/03/22 08:03 Consult to Dietitian/Nutrition [CONS] Routine Physician Instructions: Reason For Exam: Reason for Consult: Write/Manage Tube Feeding 04/03/22 17:08 Consult to Physician [CONS] Routine Comment: Consulting Provider: TRESA AUSTIN Physician Instructions: Reason For Exam: Pneumonia 04/09/22 15:09 Consult to Physician [CONS] Routine Comment: Consulting Provider: TONI GOODEN Physician Instructions: Spoke to Dr. Gooden/tirso Reason For Exam: Tracheostomy & PEG placement Primary care physician: LÓPEZ PHILLIPS Hospitalization Hospital course: I saw and evaluated the patient. I agree with the findings and the plan of care as documented in the Nurse Practitioner's~note, with the following corrections and additions. The home vent was unable to provided sufficient oxygen to the patient for safe management at home on the current settings. Discharge was canceled and will discuss with the home vent company for alternatives, family advised that we need to consider NH Exam - Constitutional Vitals: Temp Pulse Resp BP Pulse Ox 98.5 F 112 H 15 92/50 94 05/12/22 04:00 05/12/22 06:00 05/12/22 06:00 05/12/22 06:00 05/12/22 06:00
--- NOTE | 2022-05-11 13:27 | Progress Note ---
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 Right lung hemiopacification- Atelectasis s/p Bronchoscopy Oropharyngeal dysphagia s/p PEG Protein calorie malnutrition Acute Bronchopneumonia HCAP Hypotension NSTEMI H/o Amyotrophic Lateral Sclerosis Nonverbal at Baseline -Continue current antibiotics, ID following -Follow up cultures, trend temperature curve and WCC -Replace potassium- keep K >3.5; Mg at 2 and Phos >2.5 to optimize respiratory muscle function -Trach care, airway clearance, -continue with bronchodilators and chest PT -CXR,ABG as clinically indicated -Continue with mucolytics and chest PT -Blood cultures negative to date Previous trach aspirate- Pseudomonas -Titrate supplemental oxygen to keep SpO2 89-92% -VAP bundle addressed, aspiration precautions HOB >40 -Monitoring renal function, hemodynamics and electrolyte profile -Accuchecks with glycemic control. target blood glucose 140-180 mg/dL. Avoid hypoglycemia -Continue enteric nutritional support, bowel regimen -VTE prophylaxis- Heparin -Avoid nephrotoxins and renally dose all medications -Stress ulcer prophylaxis- Famotidine -Mobility, frequent turning, off loading per facility protocol to prevent pressure ulcers -Maintain sleep wake cycle, avoid benzodiazepines. -Limit delirium CONDITION:CRITICAL PROGNOSIS: GUARDED CODE STATUS; FULL CODE The high probability of a clinically significant, sudden or life threatening deterioration of the respiratory, cardiovascular, neurology system required my full and direct attention, intervention and personal management. The aggregate critical care time was [33] minutes. This time is in addition to time spent performing reported procedures but includes the following: [x] Data Review and interpretation [x] Patient assessment and monitoring of vital signs [x] Documentation [x] Medication orders and management Subjective Date of service: 05/11/22 Principal diagnosis: Ac and ch hypercapnic and hypoxemic Resp Failure; ALS; HCAP; Sepsis; NSTEMI Interval history: Follow up for : Acute and chronic Respiratory Failure with Hypoxia and Hypercap carlos 2/2 ALS;Protein calorie malnutrition;Acute Bronchopneumonia; HCAP; Hypotension; NSTEMI; Hypernatremia; Acute Metabolic Encephalopathy; H/o Amyotrophic Lateral Sclerosis Patient seen and examined. Vitals, labs, medications, chart and imaging reviewed. Discussed with respiratory and nursing care staff. s/p trach and PEG. On PEEP 8 and FIO2 45 % No reported fevers, no vomiting, no diarrhea Patient continues to fail PSV trial. No new respiratory issues Family scheduled for teaching session today at 2pm. Awaiting vent setup for home care Objective Vital Signs - 12hr 05/11/22 05/11/22 05/11/22 02:00 03:00 04:00 Temperature 98.9 F Pulse Rate 104 H 103 H 102 H Respiratory 14 14 14 Rate Blood Pressure 108/67 107/69 105/69 O2 Sat by Pulse 98 98 98 Oximetry 05/11/22 05/11/22 05/11/22 04:02 04:48 05:00 Temperature Pulse Rate 108 H 108 H 106 H Respiratory 14 Rate Blood Pressure 104/65 110/69 O2 Sat by Pulse 97 97 Oximetry 05/11/22 05/11/22 05/11/22 06:00 07:00 07:15 Temperature 98.1 F Pulse Rate 98 H 109 H Respiratory 14 16 Rate Blood Pressure 99/62 102/73 O2 Sat by Pulse 98 94 Oximetry 05/11/22 05/11/22 05/11/22 07:28 07:32 07:40 Temperature Pulse Rate 110 H 103 H Respiratory Rate Blood Pressure 125/73 O2 Sat by Pulse 93 98 Oximetry 05/11/22 05/11/22 05/11/22 08:00 09:00 10:00 Temperature 97.7 F Pulse Rate 114 H 108 H 110 H Respiratory 18 16 14 Rate Blood Pressure 125/73 108/72 88/62 O2 Sat by Pulse 98 96 97 Oximetry 05/11/22 12:34 Temperature Pulse Rate 110 H Respiratory Rate Blood Pressure 88/62 O2 Sat by Pulse 97 Oximetry Constitutional: no acute distress, alert, other (resting in bed with mildly increased respiratory effort at rest) Eyes: non-icteric ENT: oropharynx moist, other (+ midline tracheostomy) Neck: supple, no lymphadenopathy, no JVD Effort: mildly labored Ascultation: Bilateral: diminished breath sounds (bases), rhonchi Percussion: Bilateral: not dull Cardiovascular: regular rate and rhythm, other (S1,S2) Gastrointestinal: normoactive bowel sounds, soft, non-tender, non-distended (PEG) Integumentary: normal Extremities: no cyanosis, no edema, pink and warm, pulses normal Neurologic: pupils equal and round, other (functional quadriplegia) Psychiatric: mood appropriate, affect normal, other CBC and BMP: 05/24/22 04:22 05/24/22 04:22 ABG, PT/INR, D-dimer: ABG ABG pH 7.383 pH Units (7.350-7.450) 05/04/22 09:36 ABG pCO2 75.0 mm Hg 05/04/22 09:36 ABG pO2 55.4 mm Hg (80.0-90.0) L 05/04/22 09:36 ABG O2 Saturation 87.4 % (95.0-99.0) L 05/04/22 09:36 PT/INR, D-dimer PT 13.6 Sec. (12.2-14.9) 04/13/22 04:30 INR 0.94 (0.87-1.13) 04/13/22 04:30 Abnormal lab findings: Abnormal Labs 04/02/22 04/02/22 04/02/22 19:39 19:39 19:39 WBC 14.3 H RBC Hgb Hct MCV 96 H Plt Count 104 L Lymph % (Auto) Dare % (Auto) Lymph # (Auto) Dare # (Auto) Seg Neutrophils % Seg Neuts % (Manual) 94.0 H Lymphocytes % (Manual) 1.0 L Seg Neutrophils # Seg Neutrophils # Man 13.4 H Lymphocytes # (Manual) 0.1 L PT 15.9 H INR 1.14 H ABG pH ABG pO2 ABG HCO3 ABG O2 Saturation ABG Base Excess ABG Hemoglobin Oxyhemoglobin Sodium 151 H Potassium Chloride Carbon Dioxide BUN Creatinine 0.5 L Glucose POC Glucose Calcium 8.2 L Phosphorus Magnesium 1.60 L Total Creatine Kinase CK-MB (CK-2) Rel Index Troponin T 0.048 H C-Reactive Protein Total Protein 4.6 L Albumin 2.7 L LDL Cholesterol Direct 27 L Urine WBC (Auto) 04/02/22 04/03/22 04/03/22 19:42 05:14 06:30 WBC RBC Hgb Hct MCV Plt Count Lymph % (Auto) Dare % (Auto) Lymph # (Auto) Dare # (Auto) Seg Neutrophils % Seg Neuts % (Manual) Lymphocytes % (Manual) Seg Neutrophils # Seg Neutrophils # Man Lymphocytes # (Manual) PT INR ABG pH 7.471 H 7.496 H ABG pO2 47.8 L 91.0 H ABG HCO3 30.6 H ABG O2 Saturation 94.4 L ABG Base Excess 6.2 H ABG Hemoglobin 11.0 L 12.8 L Oxyhemoglobin 93.1 L Sodium 149 H Potassium 3.4 L Chloride Carbon Dioxide BUN Creatinine 0.4 L Glucose POC Glucose Calcium Phosphorus Magnesium Total Creatine Kinase CK-MB (CK-2) Rel Index Troponin T C-Reactive Protein Total Protein Albumin LDL Cholesterol Direct Urine WBC (Auto) 04/04/22 04/04/22 04/04/22 04:18 04:18 05:50 WBC 11.8 H RBC Hgb Hct MCV Plt Count 132 L Lymph % (Auto) Dare % (Auto) Lymph # (Auto) Dare # (Auto) Seg Neutrophils % Seg Neuts % (Manual) Lymphocytes % (Manual) Seg Neutrophils # Seg Neutrophils # Man Lymphocytes # (Manual) PT INR ABG pH 7.517 H ABG pO2 115.5 H ABG HCO3 29.9 H ABG O2 Saturation ABG Base Excess 6.7 H ABG Hemoglobin 12.3 L Oxyhemoglobin Sodium Potassium 3.5 L Chloride Carbon Dioxide 31 H BUN Creatinine 0.3 L Glucose 153 H POC Glucose Calcium Phosphorus 1.40 L Magnesium 1.50 L Total Creatine Kinase CK-MB (CK-2) Rel Index Troponin T C-Reactive Protein 31.60 H Total Protein Albumin LDL Cholesterol Direct Urine WBC (Auto) 04/05/22 04/05/22 04/05/22 02:50 05:25 11:28 WBC RBC Hgb Hct MCV Plt Count Lymph % (Auto) Dare % (Auto) Lymph # (Auto) Dare # (Auto) Seg Neutrophils % Seg Neuts % (Manual) Lymphocytes % (Manual) Seg Neutrophils # Seg Neutrophils # Man Lymphocytes # (Manual) PT INR ABG pH 7.455 H ABG pO2 50.7 L ABG HCO3 30.5 H ABG O2 Saturation 89.4 L ABG Base Excess 5.9 H ABG Hemoglobin 11.8 L Oxyhemoglobin 88.2 L Sodium Potassium Chloride Carbon Dioxide 32 H BUN Creatinine 0.2 L Glucose 110 H POC Glucose 124 H Calcium 7.9 L Phosphorus Magnesium Total Creatine Kinase CK-MB (CK-2) Rel Index Troponin T C-Reactive Protein Total Protein Albumin LDL Cholesterol Direct Urine WBC (Auto) 04/05/22 04/05/22 04/06/22 17:45 Unknown 04:00 WBC RBC 3.55 L Hgb 11.1 L 11.5 L Hct 33.2 L 35.1 L MCV Plt Count 113 L 114 L Lymph % (Auto) Dare % (Auto) Lymph # (Auto) Dare # (Auto) Seg Neutrophils % Seg Neuts % (Manual) Lymphocytes % (Manual) Seg Neutrophils # Seg Neutrophils # Man Lymphocytes # (Manual) PT INR ABG pH ABG pO2 ABG HCO3 ABG O2 Saturation ABG Base Excess ABG Hemoglobin Oxyhemoglobin Sodium Potassium Chloride Carbon Dioxide BUN Creatinine Glucose POC Glucose Calcium Phosphorus Magnesium Total Creatine Kinase CK-MB (CK-2) Rel Index Troponin T C-Reactive Protein Total Protein Albumin LDL Cholesterol Direct Urine WBC (Auto) 8.0 H 04/06/22 04/06/22 04/07/22 04:00 08:30 00:04 WBC RBC Hgb Hct MCV Plt Count Lymph % (Auto) Dare % (Auto) Lymph # (Auto) Dare # (Auto) Seg Neutrophils % Seg Neuts % (Manual) Lymphocytes % (Manual) Seg Neutrophils # Seg Neutrophils # Man Lymphocytes # (Manual) PT INR ABG pH ABG pO2 60.8 L ABG HCO3 30.5 H ABG O2 Saturation 93.3 L ABG Base Excess 4.9 H ABG Hemoglobin 12.4 L Oxyhemoglobin 92.1 L Sodium Potassium 3.0 L Chloride Carbon Dioxide BUN Creatinine < 0.2 L Glucose 130 H POC Glucose 117 H Calcium 8.1 L Phosphorus Magnesium Total Creatine Kinase CK-MB (CK-2) Rel Index Troponin T C-Reactive Protein Total Protein Albumin LDL Cholesterol Direct Urine WBC (Auto) 04/07/22 04/07/22 04/07/22 03:51 03:51 03:51 WBC 14.6 H RBC 3.57 L Hgb 11.1 L Hct 33.2 L MCV Plt Count 118 L Lymph % (Auto) 4.3 L Dare % (Auto) 8.8 H Lymph # (Auto) 0.6 L Dare # (Auto) 1.3 H Seg Neutrophils % 86.6 H Seg Neuts % (Manual) Lymphocytes % (Manual) Seg Neutrophils # 12.7 H Seg Neutrophils # Man Lymphocytes # (Manual) PT 15.2 H INR ABG pH ABG pO2 ABG HCO3 ABG O2 Saturation ABG Base Excess ABG Hemoglobin Oxyhemoglobin Sodium 133 L Potassium Chloride 96.0 L Carbon Dioxide 31 H BUN Creatinine 0.2 L Glucose 130 H POC Glucose Calcium 8.0 L Phosphorus Magnesium Total Creatine Kinase CK-MB (CK-2) Rel Index Troponin T C-Reactive Protein Total Protein Albumin LDL Cholesterol Direct Urine WBC (Auto) 04/07/22 04/07/22 04/08/22 04:25 09:10 04:49 WBC 16.1 H RBC 3.54 L Hgb 10.9 L Hct 33.3 L MCV Plt Count Lymph % (Auto) Dare % (Auto) Lymph # (Auto) Dare # (Auto) Seg Neutrophils % Seg Neuts % (Manual) Lymphocytes % (Manual) Seg Neutrophils # Seg Neutrophils # Man Lymphocytes # (Manual) PT INR ABG pH ABG pO2 71.0 L 63.4 L ABG HCO3 31.5 H 40.0 H ABG O2 Saturation 94.9 L ABG Base Excess 5.9 H 13.6 H ABG Hemoglobin 11.3 L 9.0 L Oxyhemoglobin 93.6 L Sodium Potassium Chloride Carbon Dioxide BUN Creatinine Glucose POC Glucose Calcium Phosphorus Magnesium Total Creatine Kinase CK-MB (CK-2) Rel Index Troponin T C-Reactive Protein Total Protein Albumin LDL Cholesterol Direct Urine WBC (Auto) 04/08/22 04/08/22 04/08/22 04:49 09:53 10:25 WBC RBC Hgb Hct MCV Plt Count Lymph % (Auto) Dare % (Auto) Lymph # (Auto) Dare # (Auto) Seg Neutrophils % Seg Neuts % (Manual) Lymphocytes % (Manual) Seg Neutrophils # Seg Neutrophils # Man Lymphocytes # (Manual) PT INR ABG pH ABG pO2 ABG HCO3 34.7 H ABG O2 Saturation ABG Base Excess 7.9 H ABG Hemoglobin 11.0 L Oxyhemoglobin Sodium 136 L Potassium Chloride 97.7 L Carbon Dioxide 33 H BUN Creatinine 0.2 L Glucose 155 H POC Glucose Calcium Phosphorus Magnesium Total Creatine Kinase CK-MB (CK-2) Rel Index Troponin T 0.030 H C-Reactive Protein Total Protein Albumin LDL Cholesterol Direct Urine WBC (Auto) 04/08/22 04/08/22 04/08/22 11:19 17:47 18:06 WBC RBC Hgb Hct MCV Plt Count Lymph % (Auto) Dare % (Auto) Lymph # (Auto) Dare # (Auto) Seg Neutrophils % Seg Neuts % (Manual) Lymphocytes % (Manual) Seg Neutrophils # Seg Neutrophils # Man Lymphocytes # (Manual) PT INR ABG pH ABG pO2 ABG HCO3 ABG O2 Saturation ABG Base Excess ABG Hemoglobin Oxyhemoglobin Sodium Potassium Chloride Carbon Dioxide BUN Creatinine Glucose POC Glucose 121 H Calcium Phosphorus Magnesium Total Creatine Kinase 31 L 46 L CK-MB (CK-2) Rel Index 6.4 H 5.6 H Troponin T 0.030 H 0.031 H C-Reactive Protein Total Protein Albumin LDL Cholesterol Direct Urine WBC (Auto) 04/09/22 04/09/22 04/09/22 04:35 04:35 11:24 WBC 11.5 H RBC 3.16 L Hgb 9.9 L Hct 29.4 L MCV Plt Count 131 L Lymph % (Auto) Dare % (Auto) Lymph # (Auto) Dare # (Auto) Seg Neutrophils % Seg Neuts % (Manual) Lymphocytes % (Manual) Seg Neutrophils # Seg Neutrophils # Man Lymphocytes # (Manual) PT INR ABG pH ABG pO2 ABG HCO3 ABG O2 Saturation ABG Base Excess ABG Hemoglobin Oxyhemoglobin Sodium Potassium Chloride 97.1 L Carbon Dioxide 35 H BUN Creatinine < 0.2 L Glucose 145 H POC Glucose 147 H Calcium Phosphorus Magnesium Total Creatine Kinase CK-MB (CK-2) Rel Index Troponin T C-Reactive Protein Total Protein Albumin LDL Cholesterol Direct Urine WBC (Auto) 04/09/22 04/09/22 04/09/22 13:00 17:32 23:48 WBC RBC Hgb Hct MCV Plt Count Lymph % (Auto) Dare % (Auto) Lymph # (Auto) Dare # (Auto) Seg Neutrophils % Seg Neuts % (Manual) Lymphocytes % (Manual) Seg Neutrophils # Seg Neutrophils # Man Lymphocytes # (Manual) PT INR ABG pH ABG pO2 66.6 L ABG HCO3 38.2 H ABG O2 Saturation 94.4 L ABG Base Excess 10.7 H ABG Hemoglobin 10.7 L Oxyhemoglobin 92.8 L Sodium Potassium Chloride Carbon Dioxide BUN Creatinine Glucose POC Glucose 143 H 114 H Calcium Phosphorus Magnesium Total Creatine Kinase CK-MB (CK-2) Rel Index Troponin T C-Reactive Protein Total Protein Albumin LDL Cholesterol Direct Urine WBC (Auto) 04/10/22 04/10/22 04/10/22 04:48 04:48 05:34 WBC RBC 2.91 L Hgb 9.1 L Hct 27.7 L MCV 95 H Plt Count Lymph % (Auto) Dare % (Auto) Lymph # (Auto) Dare # (Auto) Seg Neutrophils % Seg Neuts % (Manual) Lymphocytes % (Manual) Seg Neutrophils # Seg Neutrophils # Man Lymphocytes # (Manual) PT INR ABG pH ABG pO2 ABG HCO3 ABG O2 Saturation ABG Base Excess ABG Hemoglobin Oxyhemoglobin Sodium Potassium Chloride 95.7 L Carbon Dioxide 38 H BUN Creatinine < 0.2 L Glucose 118 H POC Glucose 127 H Calcium Phosphorus Magnesium Total Creatine Kinase CK-MB (CK-2) Rel Index Troponin T C-Reactive Protein Total Protein Albumin LDL Cholesterol Direct Urine WBC (Auto) 04/10/22 04/11/22 04/11/22 23:10 04:15 04:15 WBC 17.2 H RBC 2.98 L Hgb 9.2 L Hct 27.9 L MCV Plt Count Lymph % (Auto) Dare % (Auto) Lymph # (Auto) Dare # (Auto) Seg Neutrophils % Seg Neuts % (Manual) Lymphocytes % (Manual) Seg Neutrophils # Seg Neutrophils # Man Lymphocytes # (Manual) PT INR ABG pH ABG pO2 ABG HCO3 ABG O2 Saturation ABG Base Excess ABG Hemoglobin Oxyhemoglobin Sodium Potassium Chloride 96.1 L Carbon Dioxide 35 H BUN Creatinine < 0.2 L Glucose 138 H POC Glucose 106 H Calcium 8.3 L Phosphorus Magnesium Total Creatine Kinase CK-MB (CK-2) Rel Index Troponin T C-Reactive Protein Total Protein Albumin LDL Cholesterol Direct Urine WBC (Auto) 04/11/22 04/11/22 04/11/22 05:31 13:18 16:20 WBC RBC Hgb Hct MCV Plt Count Lymph % (Auto) Dare % (Auto) Lymph # (Auto) Dare # (Auto) Seg Neutrophils % Seg Neuts % (Manual) Lymphocytes % (Manual) Seg Neutrophils # Seg Neutrophils # Man Lymphocytes # (Manual) PT INR ABG pH ABG pO2 57.8 L ABG HCO3 40.5 H ABG O2 Saturation 90.6 L ABG Base Excess 12.6 H ABG Hemoglobin 10.5 L Oxyhemoglobin 89.0 L Sodium Potassium Chloride Carbon Dioxide BUN Creatinine Glucose POC Glucose 129 H 132 H Calcium Phosphorus Magnesium Total Creatine Kinase CK-MB (CK-2) Rel Index Troponin T C-Reactive Protein Total Protein Albumin LDL Cholesterol Direct Urine WBC (Auto) 04/11/22 04/11/22 04/12/22 17:29 23:17 04:00 WBC 17.4 H RBC 2.96 L Hgb 9.0 L Hct 28.0 L MCV 95 H Plt Count Lymph % (Auto) Dare % (Auto) Lymph # (Auto) Dare # (Auto) Seg Neutrophils % Seg Neuts % (Manual) Lymphocytes % (Manual) Seg Neutrophils # Seg Neutrophils # Man Lymphocytes # (Manual) PT INR ABG pH ABG pO2 ABG HCO3 ABG O2 Saturation ABG Base Excess ABG Hemoglobin Oxyhemoglobin Sodium Potassium Chloride Carbon Dioxide BUN Creatinine Glucose POC Glucose 125 H 151 H Calcium Phosphorus Magnesium Total Creatine Kinase CK-MB (CK-2) Rel Index Troponin T C-Reactive Protein Total Protein Albumin LDL Cholesterol Direct Urine WBC (Auto) 04/12/22 04/12/22 04/12/22 04:00 17:03 23:39 WBC RBC Hgb Hct MCV Plt Count Lymph % (Auto) Dare % (Auto) Lymph # (Auto) Dare # (Auto) Seg Neutrophils % Seg Neuts % (Manual) Lymphocytes % (Manual) Seg Neutrophils # Seg Neutrophils # Man Lymphocytes # (Manual) PT INR ABG pH ABG pO2 ABG HCO3 ABG O2 Saturation ABG Base Excess ABG Hemoglobin Oxyhemoglobin Sodium Potassium Chloride 97.4 L Carbon Dioxide 37 H BUN Creatinine < 0.2 L Glucose 127 H POC Glucose 106 H 107 H Calcium Phosphorus Magnesium Total Creatine Kinase CK-MB (CK-2) Rel Index Troponin T C-Reactive Protein Total Protein Albumin LDL Cholesterol Direct Urine WBC (Auto) 04/13/22 04/13/22 04/13/22 04:30 04:30 17:39 WBC 14.1 H RBC 2.66 L Hgb 8.4 L Hct 25.5 L MCV 96 H Plt Count Lymph % (Auto) Dare % (Auto) Lymph # (Auto) Dare # (Auto) Seg Neutrophils % Seg Neuts % (Manual) Lymphocytes % (Manual) Seg Neutrophils # Seg Neutrophils # Man Lymphocytes # (Manual) PT INR ABG pH ABG pO2 ABG HCO3 ABG O2 Saturation ABG Base Excess ABG Hemoglobin Oxyhemoglobin Sodium Potassium Chloride 93.9 L Carbon Dioxide 39 H BUN Creatinine < 0.2 L Glucose POC Glucose 134 H Calcium Phosphorus 1.90 L Magnesium Total Creatine Kinase CK-MB (CK-2) Rel Index Troponin T C-Reactive Protein Total Protein Albumin LDL Cholesterol Direct Urine WBC (Auto) 04/14/22 04/14/22 04/14/22 05:03 05:03 09:10 WBC 15.6 H RBC 3.02 L Hgb 9.3 L Hct 28.8 L MCV 95 H Plt Count Lymph % (Auto) Dare % (Auto) Lymph # (Auto) Dare # (Auto) Seg Neutrophils % Seg Neuts % (Manual) Lymphocytes % (Manual) Seg Neutrophils # Seg Neutrophils # Man Lymphocytes # (Manual) PT INR ABG pH ABG pO2 66.9 L ABG HCO3 44.5 H ABG O2 Saturation ABG Base Excess 17.2 H ABG Hemoglobin 8.1 L Oxyhemoglobin 94.8 L Sodium Potassium Chloride 93.8 L Carbon Dioxide 42 H* BUN Creatinine < 0.2 L Glucose 117 H POC Glucose Calcium Phosphorus Magnesium Total Creatine Kinase CK-MB (CK-2) Rel Index Troponin T C-Reactive Protein Total Protein Albumin LDL Cholesterol Direct Urine WBC (Auto) 04/15/22 04/15/22 04/16/22 04:44 04:44 04:16 WBC 13.0 H 12.6 H RBC 3.19 L 3.09 L Hgb 9.6 L 9.5 L Hct 30.2 L 29.1 L MCV 95 H Plt Count 456 H Lymph % (Auto) Dare % (Auto) Lymph # (Auto) Dare # (Auto) Seg Neutrophils % Seg Neuts % (Manual) Lymphocytes % (Manual) Seg Neutrophils # Seg Neutrophils # Man Lymphocytes # (Manual) PT INR ABG pH ABG pO2 ABG HCO3 ABG O2 Saturation ABG Base Excess ABG Hemoglobin Oxyhemoglobin Sodium Potassium Chloride 95.5 L Carbon Dioxide 37 H BUN Creatinine < 0.2 L Glucose POC Glucose Calcium Phosphorus Magnesium Total Creatine Kinase CK-MB (CK-2) Rel Index Troponin T C-Reactive Protein Total Protein Albumin LDL Cholesterol Direct Urine WBC (Auto) 04/16/22 04/16/22 04/16/22 04:16 05:00 14:00 WBC RBC Hgb Hct MCV Plt Count Lymph % (Auto) Dare % (Auto) Lymph # (Auto) Dare # (Auto) Seg Neutrophils % Seg Neuts % (Manual) Lymphocytes % (Manual) Seg Neutrophils # Seg Neutrophils # Man Lymphocytes # (Manual) PT INR ABG pH 7.324 L ABG pO2 55.6 L ABG HCO3 45.3 H ABG O2 Saturation 87.1 L ABG Base Excess 16.6 H ABG Hemoglobin 8.6 L Oxyhemoglobin 85.7 L Sodium Potassium Chloride 97.6 L Carbon Dioxide 36 H BUN Creatinine < 0.2 L Glucose 109 H POC Glucose 120 H Calcium Phosphorus Magnesium Total Creatine Kinase CK-MB (CK-2) Rel Index Troponin T C-Reactive Protein Total Protein Albumin LDL Cholesterol Direct Urine WBC (Auto) 04/17/22 04/17/22 04/17/22 04:36 04:36 04:57 WBC 14.4 H RBC 3.08 L Hgb 9.4 L Hct 29.0 L MCV Plt Count Lymph % (Auto) Dare % (Auto) Lymph # (Auto) Dare # (Auto) Seg Neutrophils % Seg Neuts % (Manual) Lymphocytes % (Manual) Seg Neutrophils # Seg Neutrophils # Man Lymphocytes # (Manual) PT INR ABG pH ABG pO2 ABG HCO3 ABG O2 Saturation ABG Base Excess ABG Hemoglobin Oxyhemoglobin Sodium Potassium Chloride 95.9 L Carbon Dioxide 39 H BUN Creatinine < 0.2 L Glucose 140 H POC Glucose 137 H Calcium 8.3 L Phosphorus Magnesium Total Creatine Kinase CK-MB (CK-2) Rel Index Troponin T C-Reactive Protein Total Protein Albumin LDL Cholesterol Direct Urine WBC (Auto) 04/17/22 04/17/22 04/18/22 09:15 18:01 04:20 WBC 11.2 H RBC 3.00 L Hgb 9.3 L Hct 28.6 L MCV 95 H Plt Count Lymph % (Auto) Dare % (Auto) Lymph # (Auto) Dare # (Auto) Seg Neutrophils % Seg Neuts % (Manual) Lymphocytes % (Manual) Seg Neutrophils # Seg Neutrophils # Man Lymphocytes # (Manual) PT INR ABG pH 7.345 L ABG pO2 ABG HCO3 48.2 H ABG O2 Saturation ABG Base Excess 19.2 H ABG Hemoglobin 9.7 L Oxyhemoglobin Sodium Potassium Chloride Carbon Dioxide BUN Creatinine Glucose POC Glucose 129 H Calcium Phosphorus Magnesium Total Creatine Kinase CK-MB (CK-2) Rel Index Troponin T C-Reactive Protein Total Protein Albumin LDL Cholesterol Direct Urine WBC (Auto) 04/18/22 04/18/22 04/18/22 04:20 17:35 23:50 WBC RBC Hgb Hct MCV Plt Count Lymph % (Auto) Dare % (Auto) Lymph # (Auto) Dare # (Auto) Seg Neutrophils % Seg Neuts % (Manual) Lymphocytes % (Manual) Seg Neutrophils # Seg Neutrophils # Man Lymphocytes # (Manual) PT INR ABG pH ABG pO2 ABG HCO3 ABG O2 Saturation ABG Base Excess ABG Hemoglobin Oxyhemoglobin Sodium Potassium Chloride 96.8 L Carbon Dioxide 43 H* BUN 22 H Creatinine < 0.2 L Glucose 137 H POC Glucose 128 H 123 H Calcium 8.2 L Phosphorus Magnesium Total Creatine Kinase CK-MB (CK-2) Rel Index Troponin T C-Reactive Protein Total Protein Albumin LDL Cholesterol Direct Urine WBC (Auto) 04/19/22 04/19/22 04/19/22 04:08 04:08 08:50 WBC 16.8 H RBC 3.18 L Hgb 9.8 L Hct 30.1 L MCV 95 H Plt Count Lymph % (Auto) Dare % (Auto) Lymph # (Auto) Dare # (Auto) Seg Neutrophils % Seg Neuts % (Manual) Lymphocytes % (Manual) Seg Neutrophils # Seg Neutrophils # Man Lymphocytes # (Manual) PT INR ABG pH ABG pO2 56.0 L ABG HCO3 47.1 H ABG O2 Saturation 93.3 L ABG Base Excess 20.1 H ABG Hemoglobin 8.0 L Oxyhemoglobin 91.8 L Sodium Potassium Chloride 96.2 L Carbon Dioxide 40 H BUN 24 H Creatinine < 0.2 L Glucose 125 H POC Glucose Calcium 8.3 L Phosphorus Magnesium Total Creatine Kinase CK-MB (CK-2) Rel Index Troponin T C-Reactive Protein Total Protein Albumin LDL Cholesterol Direct Urine WBC (Auto) 04/19/22 04/20/22 04/20/22 12:02 00:40 04:49 WBC 14.7 H RBC 3.36 L Hgb 10.3 L Hct 32.0 L MCV 95 H Plt Count Lymph % (Auto) Dare % (Auto) Lymph # (Auto) Dare # (Auto) Seg Neutrophils % Seg Neuts % (Manual) Lymphocytes % (Manual) Seg Neutrophils # Seg Neutrophils # Man Lymphocytes # (Manual) PT INR ABG pH ABG pO2 ABG HCO3 ABG O2 Saturation ABG Base Excess ABG Hemoglobin Oxyhemoglobin Sodium Potassium Chloride Carbon Dioxide BUN Creatinine Glucose POC Glucose 124 H 140 H Calcium Phosphorus Magnesium Total Creatine Kinase CK-MB (CK-2) Rel Index Troponin T C-Reactive Protein Total Protein Albumin LDL Cholesterol Direct Urine WBC (Auto) 04/20/22 04/20/22 04/21/22 05:36 11:40 04:05 WBC RBC Hgb Hct MCV Plt Count Lymph % (Auto) Dare % (Auto) Lymph # (Auto) Dare # (Auto) Seg Neutrophils % Seg Neuts % (Manual) Lymphocytes % (Manual) Seg Neutrophils # Seg Neutrophils # Man Lymphocytes # (Manual) PT INR ABG pH ABG pO2 ABG HCO3 ABG O2 Saturation ABG Base Excess ABG Hemoglobin Oxyhemoglobin Sodium Potassium Chloride 93.4 L Carbon Dioxide 40 H BUN 25 H Creatinine < 0.2 L Glucose 122 H POC Glucose 125 H 128 H Calcium Phosphorus Magnesium Total Creatine Kinase CK-MB (CK-2) Rel Index Troponin T C-Reactive Protein Total Protein Albumin LDL Cholesterol Direct Urine WBC (Auto) 04/21/22 04/22/22 04/22/22 10:31 05:03 05:03 WBC 12.6 H 12.7 H RBC 2.83 L 2.96 L Hgb 8.6 L 9.0 L Hct 26.9 L 28.0 L MCV 95 H 95 H Plt Count Lymph % (Auto) Dare % (Auto) Lymph # (Auto) Dare # (Auto) Seg Neutrophils % Seg Neuts % (Manual) Lymphocytes % (Manual) Seg Neutrophils # Seg Neutrophils # Man Lymphocytes # (Manual) PT INR ABG pH ABG pO2 ABG HCO3 ABG O2 Saturation ABG Base Excess ABG Hemoglobin Oxyhemoglobin Sodium Potassium Chloride 93.9 L Carbon Dioxide 43 H* BUN 23 H Creatinine < 0.2 L Glucose 137 H POC Glucose Calcium Phosphorus Magnesium Total Creatine Kinase CK-MB (CK-2) Rel Index Troponin T C-Reactive Protein Total Protein Albumin LDL Cholesterol Direct Urine WBC (Auto) 04/22/22 04/23/22 04/24/22 08:34 09:40 04:29 WBC 14.4 H RBC 2.74 L Hgb 8.4 L Hct 25.7 L MCV Plt Count Lymph % (Auto) Dare % (Auto) Lymph # (Auto) Dare # (Auto) Seg Neutrophils % Seg Neuts % (Manual) Lymphocytes % (Manual) Seg Neutrophils # Seg Neutrophils # Man Lymphocytes # (Manual) PT INR ABG pH ABG pO2 54.1 L 56.8 L ABG HCO3 48.5 H 49.0 H ABG O2 Saturation 92.1 L 90.9 L ABG Base Excess 20.9 H 20.8 H ABG Hemoglobin 9.0 L 8.4 L Oxyhemoglobin 90.6 L 89.5 L Sodium Potassium Chloride Carbon Dioxide BUN Creatinine Glucose POC Glucose Calcium Phosphorus Magnesium Total Creatine Kinase CK-MB (CK-2) Rel Index Troponin T C-Reactive Protein Total Protein Albumin LDL Cholesterol Direct Urine WBC (Auto) 04/24/22 04/25/22 04/26/22 04:29 09:00 04:22 WBC RBC 2.88 L Hgb 8.9 L Hct 26.8 L MCV Plt Count Lymph % (Auto) Dare % (Auto) Lymph # (Auto) Dare # (Auto) Seg Neutrophils % Seg Neuts % (Manual) Lymphocytes % (Manual) Seg Neutrophils # Seg Neutrophils # Man Lymphocytes # (Manual) PT INR ABG pH 7.457 H ABG pO2 66.7 L ABG HCO3 42.6 H ABG O2 Saturation ABG Base Excess 15.3 H ABG Hemoglobin 8.8 L Oxyhemoglobin 94.1 L Sodium Potassium Chloride 90.7 L Carbon Dioxide 40 H BUN Creatinine < 0.2 L Glucose 133 H POC Glucose Calcium Phosphorus Magnesium Total Creatine Kinase CK-MB (CK-2) Rel Index Troponin T C-Reactive Protein Total Protein Albumin LDL Cholesterol Direct Urine WBC (Auto) 04/26/22 04/29/22 04/29/22 04:22 04:18 04:18 WBC 13.5 H RBC 2.96 L Hgb 8.9 L Hct 27.7 L MCV Plt Count Lymph % (Auto) Dare % (Auto) Lymph # (Auto) Dare # (Auto) Seg Neutrophils % Seg Neuts % (Manual) Lymphocytes % (Manual) Seg Neutrophils # Seg Neutrophils # Man Lymphocytes # (Manual) PT INR ABG pH ABG pO2 ABG HCO3 ABG O2 Saturation ABG Base Excess ABG Hemoglobin Oxyhemoglobin Sodium Potassium Chloride 93.2 L 95.2 L Carbon Dioxide 37 H 38 H BUN Creatinine < 0.2 L < 0.2 L Glucose 114 H 116 H POC Glucose Calcium Phosphorus Magnesium Total Creatine Kinase CK-MB (CK-2) Rel Index Troponin T C-Reactive Protein Total Protein Albumin LDL Cholesterol Direct Urine WBC (Auto) 05/02/22 05/03/22 05/03/22 04:29 04:02 04:02 WBC 12.9 H 12.3 H RBC 2.82 L 2.83 L Hgb 8.4 L 8.4 L Hct 26.2 L 26.0 L MCV Plt Count Lymph % (Auto) Dare % (Auto) Lymph # (Auto) Dare # (Auto) Seg Neutrophils % Seg Neuts % (Manual) Lymphocytes % (Manual) Seg Neutrophils # Seg Neutrophils # Man Lymphocytes # (Manual) PT INR ABG pH ABG pO2 ABG HCO3 ABG O2 Saturation ABG Base Excess ABG Hemoglobin Oxyhemoglobin Sodium 134 L Potassium Chloride 90.5 L Carbon Dioxide 38 H BUN 21 H Creatinine < 0.2 L Glucose 126 H POC Glucose Calcium Phosphorus Magnesium Total Creatine Kinase CK-MB (CK-2) Rel Index Troponin T C-Reactive Protein Total Protein Albumin LDL Cholesterol Direct Urine WBC (Auto) 05/03/22 05/03/22 05/04/22 12:02 17:42 09:36 WBC RBC Hgb Hct MCV Plt Count Lymph % (Auto) Dare % (Auto) Lymph # (Auto) Dare # (Auto) Seg Neutrophils % Seg Neuts % (Manual) Lymphocytes % (Manual) Seg Neutrophils # Seg Neutrophils # Man Lymphocytes # (Manual) PT INR ABG pH ABG pO2 55.4 L ABG HCO3 43.7 H ABG O2 Saturation 87.4 L ABG Base Excess 16.1 H ABG Hemoglobin 9.1 L Oxyhemoglobin 85.7 L Sodium Potassium Chloride Carbon Dioxide BUN Creatinine Glucose POC Glucose 139 H 131 H Calcium Phosphorus Magnesium Total Creatine Kinase CK-MB (CK-2) Rel Index Troponin T C-Reactive Protein Total Protein Albumin LDL Cholesterol Direct Urine WBC (Auto) 05/04/22 05/04/22 05/05/22 17:08 23:10 04:23 WBC 14.4 H RBC 2.75 L Hgb 8.2 L Hct 25.2 L MCV Plt Count Lymph % (Auto) Dare % (Auto) Lymph # (Auto) Dare # (Auto) Seg Neutrophils % Seg Neuts % (Manual) Lymphocytes % (Manual) Seg Neutrophils # Seg Neutrophils # Man Lymphocytes # (Manual) PT INR ABG pH ABG pO2 ABG HCO3 ABG O2 Saturation ABG Base Excess ABG Hemoglobin Oxyhemoglobin Sodium Potassium Chloride Carbon Dioxide BUN Creatinine Glucose POC Glucose 124 H 115 H Calcium Phosphorus Magnesium Total Creatine Kinase CK-MB (CK-2) Rel Index Troponin T C-Reactive Protein Total Protein Albumin LDL Cholesterol Direct Urine WBC (Auto) 05/05/22 05/05/22 05/06/22 04:23 21:39 05:13 WBC RBC Hgb Hct MCV Plt Count Lymph % (Auto) Dare % (Auto) Lymph # (Auto) Dare # (Auto) Seg Neutrophils % Seg Neuts % (Manual) Lymphocytes % (Manual) Seg Neutrophils # Seg Neutrophils # Man Lymphocytes # (Manual) PT INR ABG pH ABG pO2 ABG HCO3 ABG O2 Saturation ABG Base Excess ABG Hemoglobin Oxyhemoglobin Sodium Potassium Chloride 91.3 L Carbon Dioxide 38 H BUN 23 H Creatinine < 0.2 L Glucose 128 H POC Glucose 141 H 136 H Calcium Phosphorus Magnesium Total Creatine Kinase CK-MB (CK-2) Rel Index Troponin T C-Reactive Protein Total Protein Albumin LDL Cholesterol Direct Urine WBC (Auto) 05/07/22 05/07/22 05/08/22 05:29 22:15 05:48 WBC RBC Hgb Hct MCV Plt Count Lymph % (Auto) Dare % (Auto) Lymph # (Auto) Dare # (Auto) Seg Neutrophils % Seg Neuts % (Manual) Lymphocytes % (Manual) Seg Neutrophils # Seg Neutrophils # Man Lymphocytes # (Manual) PT INR ABG pH ABG pO2 ABG HCO3 ABG O2 Saturation ABG Base Excess ABG Hemoglobin Oxyhemoglobin Sodium Potassium Chloride Carbon Dioxide BUN Creatinine Glucose POC Glucose 125 H 142 H 122 H Calcium Phosphorus Magnesium Total Creatine Kinase CK-MB (CK-2) Rel Index Troponin T C-Reactive Protein Total Protein Albumin LDL Cholesterol Direct Urine WBC (Auto) 05/08/22 05/08/22 05/09/22 14:04 21:48 15:15 WBC RBC 2.61 L Hgb 7.7 L Hct 23.2 L MCV Plt Count Lymph % (Auto) 8.1 L Dare % (Auto) Lymph # (Auto) 0.9 L Dare # (Auto) Seg Neutrophils % 86.1 H Seg Neuts % (Manual) Lymphocytes % (Manual) Seg Neutrophils # 9.2 H Seg Neutrophils # Man Lymphocytes # (Manual) PT INR ABG pH ABG pO2 ABG HCO3 ABG O2 Saturation ABG Base Excess ABG Hemoglobin Oxyhemoglobin Sodium Potassium Chloride Carbon Dioxide BUN Creatinine Glucose POC Glucose 112 H 107 H Calcium Phosphorus Magnesium Total Creatine Kinase CK-MB (CK-2) Rel Index Troponin T C-Reactive Protein Total Protein Albumin LDL Cholesterol Direct Urine WBC (Auto) 07/01/2605/09/22 05/09/22 15:15 15:39 21:15 WBC RBC Hgb Hct MCV Plt Count Lymph % (Auto) Dare % (Auto) Lymph # (Auto) Dare # (Auto) Seg Neutrophils % Seg Neuts % (Manual) Lymphocytes % (Manual) Seg Neutrophils # Seg Neutrophils # Man Lymphocytes # (Manual) PT INR ABG pH ABG pO2 ABG HCO3 ABG O2 Saturation ABG Base Excess ABG Hemoglobin Oxyhemoglobin Sodium Potassium Chloride 92.9 L Carbon Dioxide 40 H BUN Creatinine < 0.2 L Glucose 141 H POC Glucose 118 H 112 H Calcium Phosphorus Magnesium Total Creatine Kinase CK-MB (CK-2) Rel Index Troponin T C-Reactive Protein Total Protein Albumin LDL Cholesterol Direct Urine WBC (Auto) 05/10/22 15:14 WBC RBC Hgb Hct MCV Plt Count Lymph % (Auto) Dare % (Auto) Lymph # (Auto) Dare # (Auto) Seg Neutrophils % Seg Neuts % (Manual) Lymphocytes % (Manual) Seg Neutrophils # Seg Neutrophils # Man Lymphocytes # (Manual) PT INR ABG pH ABG pO2 ABG HCO3 ABG O2 Saturation ABG Base Excess ABG Hemoglobin Oxyhemoglobin Sodium Potassium Chloride Carbon Dioxide BUN Creatinine Glucose POC Glucose 113 H Calcium Phosphorus Magnesium Total Creatine Kinase CK-MB (CK-2) Rel Index Troponin T C-Reactive Protein Total Protein Albumin LDL Cholesterol Direct Urine WBC (Auto) Allied health notes reviewed: RT
[2022-05-11] MEDS: fentaNYL 100 MCG/2 ML INJ IV PRN (22:00)
[2022-05-12] MEDS: METOPROLOL TARTRATE 25 MG TAB FEEDTUBE SCH ×4 (00:30→17:35)
[2022-05-12] MEDS: INSULIN LISPRO 100 UNIT/ML SUB-Q SCH ×4 (00:31→22:54)
[2022-05-12] MEDS: HEPARIN 5,000 UNIT/1 ML VIAL SUB-Q SCH ×3 (05:40→22:00)
[2022-05-12] MEDS: ALBUTEROL 2.5 MG/3 ML NEBU IH SCH ×2 (08:14→20:45)
[2022-05-12] MEDS: SCOPOLAMINE TRANSDERMAL PATCH 72 HR TD SCH ×2 (09:41→17:37)
[2022-05-12] MEDS: DOCUSATE SODIUM 100 MG/10 ML ORAL LIQD FEEDTUBE SCH ×2 (09:41→21:58)
[2022-05-12] MEDS: POLYETHYLENE GLYCOL 3350 17 GM POWDER PO SCH (09:42)
[2022-05-12] MEDS: QUEtiapine 25 MG TAB FEEDTUBE SCH ×2 (09:42→22:50)
[2022-05-12] MEDS: SENNOSIDES ORAL LIQD 8.8 MG/5 ML ORAL LIQD FEEDTUBE SCH ×2 (09:42→21:58)
[2022-05-12] MEDS: FAMOTIDINE 20 MG TAB FEEDTUBE SCH ×2 (09:42→22:00)
--- NOTE | 2022-05-12 12:55 | Progress Note ---
<ALEK SMITH - Last Filed: 05/12/22 20:49> Assessment and Plan Assessment and plan: This is a 57-year-old male with known history of ALS, recently hospitalized at [facility] admitted for acute hypoxemic respiratory failure 2/2 pneumonia Hospital Course to Date: 04/03: Intubated and Sedated on versed gtt, RASS-5. CT head/brain noted with no acute intracranial abnormality. Plan to initiated precededx gtt and wean off versed for a RASS goal of 0 to -2. CT chect also reviewed, findings are most consistent with acute bronchopneumonia. Continue empiric IV Abx, vent adjustment per CCM. ID consulted. Continue to F/U on cultures. Titrate pressor for MAP above 65. Medical records requested from [facility]. 04/04: Remains stable on the vent, easily arousable on precedex gtt, not following commands. Plan for SAT/SBT today. PRN analgesia for CPOT greater than 3. Fevers improved, cultures and procal pending. Continue current IV abx, ID also consulted. Remains on low dose pressors, titrate pressors for a MAP above 65. 04/05: Long discussion with family with use of translation phone with CCM regarding goals of care. Family to have meeting amongst themselves and informed care team of decisions. Fentanyl drip added for respiratory distress. Remains on Precedex drip. Antibiotics per ID. Given 2L NS bolus with levophed gtt 04/06: Family discussion with Dr. Grayson for goals of care. CXR shows possible mucus plug, continue CPT as FiO2 is being able to be weaned. Potassium repleted. Weaning fentnyl gtt. 04/07: Ultrasound guided thoracentesis today scheduled, inadequate amount of pleural effusion on so not completed. Patient was started on Levophed overnight which was weaned off this morning however had to be started twice a day. Remains on fentanyl and Precedex. Cardiology discontinued BB and ACEi in setting of hypotension. 04/08: COVID-19 PCR negative. Routine EEG ordered by cardiology which showed ST changes, cardiology aware. They will continue conservative treatment. Repeat troponins 0.030 which are less than admit of 0.048. Dr. Grayson had a long discu ssion with with the use of per diem interpreter today at bedside and has not made a decision regarding goals of care. Possible consult to surgery for trach/PEG early next week. Continues to require Precedex and fentanyl drip for sedation. Carvedilol/lisinopril discontinued as patient is continuously on Levophed. 04/09: No acute events reported overnight, remains on fentanyl, Precedex and Levophed drips. Dr. Grayson and Dr. Pineda updated family at bedside extensively today. Consulted surgery for trach/PEG. COVID-19 PCR negative. 04/10: Patient noted to have desaturation episodes, FiO2 increased slightly to 35%. Will add Mucomyst. Remains on fentanyl and Precedex. Off of Levophed. Surgery consulted for trach/PEG. 04/11: FiO2 increased over night likely related to hypoxia, continues on fent gtt, weaning precedex gtt as he is also on Seroquel. Will d/w CCM re scheduled or prn oxycodone 04/12: Periods of hypoxia and tachycardia this am. Symptoms improved post deep suction and tracheal lavage, Repeat CXR noted with no significant change. Continue CPT and mucomyst. Plan for possible trach/PEG tomorrow by general surgery. 04/13: Remains stable on the vent. Patient is wake and tracking but does not follow simple commands. No report of hypoxia from overnight, continue CPT and mucomyst. Plan for track and PEG today by General Surgery. Plan for LTAC placement post procedure, case management to arrange. 04/14: VIRGILIO overnight, Trach and PEG postponed for today by general surgery. Plan for LTAC placement post procedure, case management to arrange. 04/15: S/p Trach and PEG. Up to 80% FiO2 this am, this am CXR noted suggesting possible mucus plug. D/W [facility] plan for bronch today. Continue CPT and mucomyst. Plan of care thoroughly discussed with patient's and son (who translated for ) at the bedside. Per , railway engineer had already discussed the risks and benefits of the procedure yesterday. She verbalized understanding and agreed with procedure and current care plan, consent signed. Okay to use PEG-tube for meds this am, resume TF once okay by general Surgery. Case management to arrange LTAC placement. 04/16: s/p Bronchocopy by [facility]. FiO2 down to 60%, angela 10 this am. This am CXR with moderate improvement. Continue CPT and mucomyst, wean Fio2 as tolerated for SPO2 above 92%. Patient is tolerating TF, advance to goal as ordered. Possible LTAC placement, case management to arrange. 04/17: VIRGILIO overnight. remains stable on the vent, recent CXR and this am ABG n oted. Continue CPT and mucomyst, wean Fio2 as tolerated. 04/18: Remains stable on the vent, Fio2 down to 55% and peep of 8 this am. Continue to wean as tolerated, CPT, and mucomyst. Dsiposition- LTAC placement, case management to arrange. 04/19: No acute events overnight. Continue current management. 04/20: No acute events overnight, continue current management 04/21: Patient had chest ultrasound which showed trace pleural effusions, chest x-ray improved after the addition of Mucomyst yesterday. FiO2 55-65%. No acute events overnight. more interactive today. 04/22: Seroquel changed to BID, FiO2 was increased to 60%. RT increased FIO2 to 100 d/t desaturation into the 80s but was able to wean down. CCM increased PEEP and decreased FiO2. 04/23: CCM increase PEEP, no acute events reported overnight. 04/24: Spoke to RT about decreasing FiO2 as tolerated. No acute events reported overnight. Continue supportive management. 04/25: Weaning as tolerated. no acute events overnight. RT to attempt CPAP again today 04/26: VIRGILIO overnight. Patient failed PSV trial again this morning. Continue s upportive management and daily PST trial. 04/27: Patient failed PSV trial again this am due to episodes of apnea. Continue daily PSV trial as tolerated. Case management to arrange LTAC placement 04/28: Remains stable. Continue daily PSV trial as tolerated. Awaiting approval for LTAC 04/29: VIRGILIO overnight. Continue daily PSV trial. Awaiting approval for LTAC, case management to arrange. 04/30: Patient continue to fail PSV trial. Per case management patient was denied for LTAC, now possible SNF placement. Case managemen to arrange. Continue supportive measures and daily PSV trial as tolerated. 05/01: VIRGILIO overnight. Continue supportive measures and daily PSV trial as tolerated. Possible SNF placement. 05/02: Continue supportive measures and daily PSV trial as tolerated. Possible SNF placement, case management to arrange 05/03: no acute events overnight, CM arranging home vent setup. Family declined SNF. 05/04: RN/RT reports thin secretions, increase in FiO2 for decreased oxygen on ABG. No acute events overnight. 05/05: Family scheduled for teaching session today at 2pm. Increase in FiO2 overnight to 45%. Awaiting vent setup for home care for ventilation secondary to tracheostomy. 05/06: No acute events reported overnight, T-max 100.9. FiO2 45%. Awaiting discharge home with vent when teaching is completed 05/07: No acute events reported overnight, Awaiting discharge home with vent when teaching is completed 05/08: No acute events reported overnight, Awaiting discharge home with vent when teaching is completed 05/09: no acute events reported overnight. Ordered routine labs today. Family continuing with vent training. Anticipate discharge home this week possibly on Tuesday. 05/10: VIRGILIO overnight. Continue current supportive measures and family training at the bedside. Plan for discharge home tomorrow. 05/11: Discharge home today. supervisor photoengraving at 12pm 05/12: Discharge cancelled yesterday. Patient desated on home vent at max setting. Home vent is not sufficient to support patient's ventilation need. D/w CCM, Dr. Valdivia, who recommend SNF placement at this time. Patient's family notified at the bedside. All questions and concerns were address at this time. Further discussion on alternative placement to be determine and discussed with patient's family and case management today. The respiratory therapist from [facility] is schedule to come at 1400 today for further assessment. Assessment and Plan #Acute Hypoxemic Respiratory Failure 2/2 #Acute Bronchopneumonia - Intubated in the ED on 04/02 for hypoxemia and airway protection - 04/14 s/p Trach and PEG - 04/15 CXR reviewed complete opacity of the righ side suggesting possible mucus plug. See report for detail - 04/15 s/p Bronchoscopy by CCM - Vent setting: PRVC-40%,10,14,400 - No ABG this am - CCM consulted, appreciate recommendations - Multiple failed vent wean - Continue daily PSVT as tolerated - Continue CPT and mucomyst per [facility] - VAP bundle addressed - Aspiration precaution HOB above 30 - PRN ABG and CXR per [facility] - Continue SPO2 monitoring for SPO2 goal above 92% #Sepsis #Acute Bronchopneumonia #HCAP #Leukocytosis - CXR shows moderate to large layering effusion on the right, see report for full detail - CT chest also reviewed, findings are most consistent with acute bronchopneumonia. See report for full detail - Patient was recent hospitalized for pneumonia - Patient remains afebrile - Tracheal aspirate with Pseudomonas aeruginosa, Enterobacter aerogenes - 04/02 blood culture with bacillus species, 04/05 blood culture NGTD - Patient completed L62njct of Cefepine - CRP 31.6, procalcitonin 0.08 - MRSA negative - Daily CBC monitor - ID signed off #Suspect ischemic coronary artery disease #h/o cardiomyopathy - Low BP probably due to hypovolemia vs sedation vs infectious process - s/p Levophed gtt - Elevated troponin possibly a type II troponin leak - Cardiology consulted, appreciated recommendations - Echocardiogram shows ejection fraction of 40 to 45%, mild global hypokinesis of left ventricle - Continue BB - Continue blood pressure monitor per protocol - Maintain MAP above 65 - On heparin SubQ #H/o Amyotrophic Lateral Sclerosis #Acute Metabolic Encephalopathy-resolved #Nonverbal at Baseline - Presented with AMS, per family patient is nonverbal at baseline but responsive - CT head/Brain with no acute intracranial process - Off sedation. Awake and calm - Continue Seroquel per CCM - Avoid benzodiazepine to reduce the possibility of delirium - PRN analgesia for CPOT greater than 3 - Maintenance of sleep-wake cycle #Thrombocytopenia-resolved - Continue to trend plt - On heparin subQ - Monitor for s/s of any active bleeding #Hypernatremia-resolved - Monitor and replace electrolytes as needed - Continue to trend BMP #Protein Caloric Malnutrition - Albumin 2.7, Total protein 4.6 - 04/15 s/p EPG-Tube placement - Continue enteral nutrition - Nutrition consulted #Constipation - Noted on CXR and KUB - last BM 04/27 - Continue BR #GI/DVT Prophylaxis - PPI- Pepcid - Heparin SubQ - SCDs to bilateral lower extremities while in bed #Advance Care Planning - Disease education data, care plan, diagnoses, and prognosis were discussed patient's , Carly Lopez, and patient daughter, Kaylee Warren, who translated for #[phone]. They reported that patient was following at [facility] for his ALS and during recent hospitalization at [facility] they were told nothing else can be offered to patient at this time and patient was discharge home with home hospice and PO morphine. First hospice visit was on , however, patient became unresponsive yesterday and they brought in to the hospital. - Goal of care and code status were also addressed at that time. Family wants to wait for a couple days to see how patient respond to current treatment before making a decision. All questions and concerns were addressed at this time. Patient family acknowledged understanding and agreement with care plan. - Patient remains a FULL CODE status -04/05: Discussion at bedside with interpreting service with Dr. Valdivia and family state they would discuss next steps amongst themselves and let healthcare team know of decisions -04/06: extensive discussion with family ( and son) with Dr. Grayson regarding goals of care -04/08: Extensive discussion with with the use of per diem interpreter line regarding goals of care; no decision made. Possible consult to surgery for trach/PEG early next week. -04/09: Discussion with and her sister with Dr. Grayson and then with Dr. Pineda-> Consulted surgery for trach/peg -04/30 Insurance Denied LTAC, plan for possible SNF placemenet now. Case management to arrange -05/12: Discharge cancelled yesterday. [facility]. Home vent is not sufficient to support patient's ventilation need. D/w CCM, Dr. Valdivia, who recommend SNF placement at this time. The high probability of a clinically significant, sudden or life threatening deterioration of the [multiple] system(s) required my full and direct attention, intervention and personal management. The aggregate critical care time was [60] minutes. This time is in addition to time spent performing reported procedures but includes the following: [x] Data Review and interpretation [x] Patient assessment and monitoring of vital signs [x] Documentation [x] Medication orders and management Disposition Plan: ICU Total Time Spent with Patient (Minutes): 60 History Interval history: Patient seen and examined at the bedside. Stable on the vent, awake and tracking, following simple commands, VSS. VIRGILIO overnight Hospitalist Physical - Physical exam Narrative exam: General appearance: Present: no acute distress, cachectic, other (Trach and on the vent.Awake and tracking, following simple commands) - EENT Eyes: Present: PERRL - Neck Neck: Present: normal ROM - Respiratory Respiratory effort: normal Respiratory: bilateral: rhonchi - Cardiovascular Rhythm: regular Heart Sounds: Present: S1 & S2 - Extremities Extremities: no ischemia, pulses intact, pulses symmetrical Peripheral Pulses: within normal limits - Abdominal General gastrointestinal: soft, non-distended, normal bowel sounds - Integumentary Integumentary: Present: warm, dry - Psychiatric Psychiatric: other (Trach and on the vent. Awake and tracking, following simple commands) - Neurologic Neurologic: other (Trach and on the vent. Awake and tracking, following simple commands) - Allied Health Allied health notes reviewed: nursing, case management - Constitutional Vitals: Temp Pulse Resp BP Pulse Ox 98.9 F 113 H 14 105/61 92 05/12/22 08:00 05/12/22 11:00 05/12/22 11:00 05/12/22 11:00 05/12/22 11:00 HEART Score - HEART Score Troponin: Troponin T 0.031 ng/mL (0.00-0.029) H 04/08/22 17:47 Results - Labs CBC & Chem 7: 05/09/22 15:15 05/09/22 15:15 Labs: Laboratory Last Values WBC 10.7 K/mm3 (4.5-11.0) 05/09/22 15:15 RBC 2.61 M/mm3 (3.65-5.03) L 05/09/22 15:15 Hgb 7.7 gm/dl (11.8-15.2) L 05/09/22 15:15 Hct 23.2 % (35.5-45.6) L 05/09/22 15:15 MCV 89 fl (84-94) 05/09/22 15:15 MCH 30 pg (28-32) 05/09/22 15:15 MCHC 33 % (32-34) 05/09/22 15:15 RDW 14.7 % (13.2-15.2) 05/09/22 15:15 Plt Count 292 K/mm3 (140-440) 05/09/22 15:15 Lymph % (Auto) 8.1 % (13.4-35.0) L 05/09/22 15:15 [place] % (Auto) 4.9 % (0.0-7.3) 05/09/22 15:15 Eos % (Auto) 0.6 % (0.0-4.3) 05/09/22 15:15 Baso % (Auto) 0.3 % (0.0-1.8) 05/09/22 15:15 Lymph # (Auto) 0.9 K/mm3 (1.2-5.4) L 05/09/22 15:15 [place] # (Auto) 0.5 K/mm3 (0.0-0.8) 05/09/22 15:15 Eos # (Auto) 0.1 K/mm3 (0.0-0.4) 05/09/22 15:15 Baso # (Auto) 0.0 K/mm3 (0.0-0.1) 05/09/22 15:15 Add Manual Diff Complete 04/02/22 19:39 Total Counted 100 04/02/22 19:39 Seg Neutrophils % 86.1 % (40.0-70.0) H 05/09/22 15:15 Seg Neuts % (Manual) 94.0 % (40.0-70.0) H 04/02/22 19:39 Band Neutrophils % 0 % 04/02/22 19:39 Lymphocytes % (Manual) 1.0 % (13.4-35.0) L 04/02/22 19:39 Reactive Lymphs % (Man) 0 % 04/02/22 19:39 Monocytes % (Manual) 5.0 % (0.0-7.3) 04/02/22 19:39 Eosinophils % (Manual) 0 % (0.0-4.3) 04/02/22 19:39 Basophils % (Manual) 0 % (0.0-1.8) 04/02/22 19:39 Metamyelocytes % 0 % 04/02/22 19:39 Myelocytes % 0 % 04/02/22 19:39 Promyelocytes % 0 % 04/02/22 19:39 Blast Cells % 0 % 04/02/22 19:39 Nucleated RBC % Not Reportable 04/02/22 19:39 Seg Neutrophils # 9.2 K/mm3 (1.8-7.7) H 05/09/22 15:15 Seg Neutrophils # Man 13.4 K/mm3 (1.8-7.7) H 04/02/22 19:39 Band Neutrophils # 0.0 K/mm3 04/02/22 19:39 Lymphocytes # (Manual) 0.1 K/mm3 (1.2-5.4) L 04/02/22 19:39 Abs React Lymphs (Man) 0.0 K/mm3 04/02/22 19:39 Monocytes # (Manual) 0.7 K/mm3 (0.0-0.8) 04/02/22 19:39 Eosinophils # (Manual) 0.0 K/mm3 (0.0-0.4) 04/02/22 19:39 Basophils # (Manual) 0.0 K/mm3 (0.0-0.1) 04/02/22 19:39 Metamyelocytes # 0.0 K/mm3 04/02/22 19:39 Myelocytes # 0.0 K/mm3 04/02/22 19:39 Promyelocytes # 0.0 K/mm3 04/02/22 19:39 Blast Cells # 0.0 K/mm3 04/02/22 19:39 WBC Morphology Not Reportable 04/02/22 19:39 Hypersegmented Neuts Not Reportable 04/02/22 19:39 Hyposegmented Neuts Not Reportable 04/02/22 19:39 Hypogranular Neuts Not Reportable 04/02/22 19:39 Smudge Cells Not Reportable 04/02/22 19:39 Toxic Granulation Not Reportable 04/02/22 19:39 Toxic Vacuolation Not Reportable 04/02/22 19:39 Dohle Bodies Not Reportable 04/02/22 19:39 Pelger-Huet Anomaly Not Reportable 04/02/22 19:39 Terry Rods Not Reportable 04/02/22 19:39 Platelet Estimate Consistent w auto 04/02/22 19:39 Clumped Platelets Not Reportable 04/02/22 19:39 Plt Clumps, EDTA Not Reportable 04/02/22 19:39 Large Platelets Not Reportable 04/02/22 19:39 Giant Platelets Not Reportable 04/02/22 19:39 Platelet Satelliting Not Reportable 04/02/22 19:39 Plt Morphology Comment Not Reportable 04/02/22 19:39 RBC Morphology Not Reportable 04/02/22 19:39 Dimorphic RBCs Not Reportable 04/02/22 19:39 Polychromasia Not Reportable 04/02/22 19:39 Hypochromasia Not Reportable 04/02/22 19:39 Poikilocytosis Not Reportable 04/02/22 19:39 Anisocytosis 1+ 04/02/22 19:39 Microcytosis Not Reportable 04/02/22 19:39 Macrocytosis Not Reportable 04/02/22 19:39 Spherocytes Not Reportable 04/02/22 19:39 Pappenheimer Bodies Not Reportable 04/02/22 19:39 Sickle Cells Not Reportable 04/02/22 19:39 Target Cells Not Reportable 04/02/22 19:39 Tear Drop Cells Not Reportable 04/02/22 19:39 Ovalocytes Not Reportable 04/02/22 19:39 Helmet Cells Not Reportable 04/02/22 19:39 [place] Bodies Not Reportable 04/02/22 19:39 [place] Rings Not Reportable 04/02/22 19:39 [place] Cells Not Reportable 04/02/22 19:39 Bite Cells Not Reportable 04/02/22 19:39 Crenated Cell Not Reportable 04/02/22 19:39 Elliptocytes Not Reportable 04/02/22 19:39 Acanthocytes (Spur) Not Reportable 04/02/22 19:39 Rouleaux Not Reportable 04/02/22 19:39 Hemoglobin C Crystals Not Reportable 04/02/22 19:39 Schistocytes Not Reportable 04/02/22 19:39 Malaria parasites Not Reportable 04/02/22 19:39 [place] Bodies Not Reportable 04/02/22 19:39 Hem Pathologist Commnt No 04/02/22 19:39 PT 13.6 Sec. (12.2-14.9) 04/13/22 04:30 INR 0.94 (0.87-1.13) 04/13/22 04:30 APTT 35.7 Sec. (24.2-36.6) 04/07/22 03:51 ABG pH 7.383 pH Units (7.350-7.450) 05/04/22 09:36 ABG pCO2 75.0 mm Hg 05/04/22 09:36 ABG pO2 55.4 mm Hg (80.0-90.0) L 05/04/22 09:36 ABG HCO3 43.7 mmol/L (20.0-26.0) H 05/04/22 09:36 ABG O2 Saturation 87.4 % (95.0-99.0) L 05/04/22 09:36 ABG O2 Content 11.0 (0.0-44) 05/04/22 09:36 ABG Base Excess 16.1 mmol/L (-2.0-3.0) H 05/04/22 09:36 ABG Hemoglobin 9.1 gm/dl (14.0-18.0) L 05/04/22 09:36 ABG Carboxyhemoglobin 1.5 % (0.0-5.0) 05/04/22 09:36 ABG Methemoglobin 0.4 % (0.0-1.5) 05/04/22 09:36 Oxyhemoglobin 85.7 % (95.0-99.0) L 05/04/22 09:36 FiO2 30 % 05/04/22 09:36 Sodium 137 mmol/L (137-145) 05/09/22 15:15 Potassium 4.1 mmol/L (3.6-5.0) 05/09/22 15:15 Chloride 92.9 mmol/L (98-107) L 05/09/22 15:15 Carbon Dioxide 40 mmol/L (22-30) H 05/09/22 15:15 Anion Gap 8 mmol/L 05/09/22 15:15 BUN 20 mg/dL (9-20) 05/09/22 15:15 Creatinine < 0.2 mg/dL (0.8-1.3) L 05/09/22 15:15 Estimated GFR > 60 ml/min 05/09/22 15:15 BUN/Creatinine Ratio 100 % 05/09/22 15:15 Glucose 141 mg/dL (75-100) H 05/09/22 15:15 POC Glucose 158 mg/dL (70-105) H 05/12/22 00:25 Lactic Acid 1.90 mmol/L (0.7-2.0) 04/02/22 19:39 Calcium 8.8 mg/dL (8.4-10.2) 05/09/22 15:15 Phosphorus 3.40 mg/dL (2.5-4.5) 05/05/22 04:23 Magnesium 1.90 mg/dL (1.7-2.3) 05/05/22 04:23 Total Bilirubin 0.80 mg/dL (0.1-1.2) 04/02/22 19:39 AST 15 units/L (5-40) 04/02/22 19:39 ALT 9 units/L (7-56) 04/02/22 19:39 Alkaline Phosphatase 43 units/L (35-129) 04/02/22 19:39 Total Creatine Kinase 46 units/L (55-170) L 04/08/22 17:47 CK-MB (CK-2) 2.6 ng/mL (0.0-4.0) 04/08/22 17:47 CK-MB (CK-2) Rel Index 5.6 (0-4) H 04/08/22 17:47 Troponin T 0.031 ng/mL (0.00-0.029) H 04/08/22 17:47 C-Reactive Protein 31.60 mg/dL (0.00-1.30) H 04/04/22 04:18 Total Protein 4.6 g/dL (6.3-8.2) L 04/02/22 19:39 Albumin 2.7 g/dL (3.9-5) L 04/02/22 19:39 Albumin/Globulin Ratio 1.4 % 04/02/22 19:39 Triglycerides 80 mg/dL (2-149) 04/02/22 19:39 Cholesterol 94 mg/dL (50-199) 04/02/22 19:39 LDL Cholesterol Direct 27 mg/dL (50-130) L 04/02/22 19:39 HDL Cholesterol 47 mg/dL (40-59) 04/02/22 19:39 Cholesterol/HDL Ratio 2.00 % 04/02/22 19:39 Procalcitonin 0.08 ng/mL (<0.15) 04/04/22 04:18 Urine Color Ar[place] (Yellow) 04/05/22 17:45 Urine Turbidity Cloudy (Clear) 04/05/22 17:45 Urine pH 5.0 (5.0-7.0) 04/05/22 17:45 Ur Specific [place] 1.021 (1.003-1.030) 04/05/22 17:45 Urine Protein 30 mg/dl mg/dL (Negative) 04/05/22 17:45 Urine Glucose (UA) Neg mg/dL (Negative) 04/05/22 17:45 Urine Ketones Tr mg/dL (Negative) 04/05/22 17:45 Urine Blood Sm (Negative) 04/05/22 17:45 Urine Nitrite Neg (Negative) 04/05/22 17:45 Urine Bilirubin Neg (Negative) 04/05/22 17:45 Urine Urobilinogen < 2.0 mg/dL (<2.0) 04/05/22 17:45 Ur Leukocyte Esterase Tr (Negative) 04/05/22 17:45 Urine WBC (Auto) 8.0 /HPF (0.0-6.0) H 04/05/22 17:45 Urine RBC (Auto) 3.0 /HPF (0.0-6.0) 04/05/22 17:45 U Epithel Cells (Auto) 2.0 /HPF (0-13.0) 04/05/22 17:45 Urine Bacteria (Auto) 1+ /HPF (Negative) 04/02/22 Unknown Hyaline Casts 1 /LPF 04/05/22 17:45 Urine Mucus 3+ /HPF 04/05/22 17:45 Nasal Screen MRSA (PCR) Negative (Negative) 04/05/22 12:37 Vancomycin Trough 6.0 ug/mL (5.0-20.0) 04/05/22 18:53 Coronavirus (PCR) Negative (Negative) 04/07/22 14:52 Perez/IV: Voiding Method Condom Catheter Active Medications - Current Medications Current Medications: Generic Name Dose Route Start Last Admin Trade Name Freq PRN Reason Stop Dose Admin Acetaminophen 650 mg 04/02/22 23:53 05/04/22 21:37 Acetaminophen 325 Mg Tab PO 650 mg Q6H PRN Administration Pain MILD(1-3)/Fever >100.5/FAITH Acetylcysteine 200 mg 05/04/22 20:00 05/11/22 19:46 Acetylcysteine 20% 200 Mg/1 Ml *For Inhalation Use* INHALATION Not Given Q12HRT SEGUNDO Albuterol 2.5 mg 05/05/22 20:00 05/12/22 08:14 Albuterol 2.5 Mg/3 Ml Nebu IH 2.5 mg Q12HRT SEGUNDO Administration Bisacodyl 10 mg 04/07/22 09:44 04/12/22 10:06 Bisacodyl 10 Mg Rect Supp OH 10 mg QDAY PRN Administration Constipation Docusate Sodium 100 mg 04/28/22 10:00 05/12/22 09:41 Docusate Sodium 100 Mg/10 Ml Oral Liqd FEEDTUBE 100 mg BID SEGUNDO Administration Famotidine 20 mg 04/06/22 10:00 05/12/22 09:42 Famotidine 20 Mg Tab FEEDTUBE 20 mg BID SEGUNDO Administration Fentanyl 50 mcg 04/04/22 15:56 05/11/22 22:00 Fentanyl 100 Mcg/2 Ml Inj IV 50 mcg Q2HR PRN Administration For CPOT of greater than 3 Heparin Sodium (Porcine) 5,000 unit 04/03/22 06:00 05/12/22 05:40 Heparin 5,000 Unit/1 Ml Vial SUB-Q 5,000 unit Q8HR [facility] Administration Insulin Human Lispro 0 unit 05/05/22 06:00 05/12/22 05:40 Insulin Lispro 100 Unit/Ml SUB-Q Not Given Q8HR [facility] Protocol Magnesium Hydroxide 30 ml 04/02/22 23:53 Magnesium Hydroxide (Mom) Oral Liqd Udc PO Q4H PRN Constipation Metoprolol Tartrate 12.5 mg 05/03/22 13:00 05/12/22 05:41 Metoprolol Tartrate 25 Mg Tab FEEDTUBE Not Given Q6HR [facility] Ondansetron HCl 4 mg 04/02/22 23:53 Ondansetron 4 Mg/2 Ml Inj IV Q8H PRN Nausea And Vomiting Polyethylene Glycol 17 gm 04/08/22 10:00 05/12/22 09:42 Polyethylene Glycol 3350 17 Gm Powder PO 17 gm QDAY SEGUNDO Administration Quetiapine Fumarate 50 mg 04/28/22 10:00 05/12/22 09:42 Quetiapine 25 Mg Tab FEEDTUBE 50 mg BID [facility] Administration Scopolamine 1 each 05/12/22 09:00 05/12/22 09:41 Scopolamine Transdermal Patch 72 Hr TD 1 each Q3D SEGUNDO Administration Senna 17.6 mg 04/28/22 10:00 05/12/22 09:42 Sennosides Oral Liqd 8.8 Mg/5 Ml Oral Liqd FEEDTUBE 17.6 mg Q12HR [facility] Administration Sodium Chloride 10 ml 04/03/22 10:00 05/11/22 22:01 Sodium Chloride 0.9% 10 Ml Flush Syringe IV 10 ml BID SEGUNDO Administration Sodium Chloride 10 ml 04/02/22 23:53 Sodium Chloride 0.9% 10 Ml Flush Syringe IV PRN PRN LINE FLUSH Nutrition/Malnutrition Assess - Dietary Evaluation Nutrition/Malnutrition Findings: Nutrition Notes Start: 04/04/22 13:13 Freq: Status: Active Protocol: Document 05/11/22 11:49 COLLEEN (Rec: 05/11/22 12:02 COLLEEN [id number]) Nutrition Notes Initial or Follow up Reassessment Current Diagnosis Coronary Artery Disease, Decubitus(Pressure Ulcer), Sepsis,Respiratory Failure, Malnutrition Other Pertinent Diagnosis HCAP, ALS, Broncopneumonia, NSTEMI, Cardiomyopathy, ... Current Diet TF-Vital AF 1.2 Inderjit @ 50 ml/hr (since D 04/15). Labs/Tests 05/09: Cl 92.9, CO2 40, Crea < 0.2, Glu 141. Pertinent Medications 05/11: Nutritionally unremarkable. Height 5 ft 4.8 in Weight 46.8 kg [place] Body Weight (kg) 61.27 BMI 17.2 Weight change and time frame No body weight change reported in 5 weeks. Weight Status Underweight Subjective/Other Information RD consult for routine F/U on TF tolerance/continuation. TF continues as prescribed, and well tolerated, according to RN notes. Pt continues on Mechanical ventilation, O2 saturation @ 93%, according to Physical Assessment Histroy notes. Pt will be discharged home with family; awaiting home- Vent family training to be over on 05/12, according to Progress notes. Percent of energy/protein needs met: Prescribed TF-Vital AF 1.2 Inderjit @ 50 ml/hr provides for energy/protein needs (1,450 Kcal/91 g) during LOS, 98% Kcal; 100% AA. Burn Absent Trauma Absent GI Symptoms Constipation Difficulty In Swallowing,Chewing Food Allergy No Skin Integrity/Comment Sacral open wound. Current % PO Other Minimum of two criteria No #1 Nutrition Diagnosis Inadequate oral intake Diagnosis Progress(for reassessment Continues documentation) Is patient on ventilator? Yes Is Patient Ambulatory and/or Out of Bed No REE-([place]-confined to bed) [phone] Calculation Used for Recommendations [place] Additional Notes Protein: 1.2-2 g/Kg IBW; 73- 122 g/day. Fluids: 1 ml/Kcal, or as per MD. Nutrition Intervention Nutrition Support: Continue TF-Vital AF 1.2 Inderjit @ 50 ml/hr. Flush: 80 ml water Q 4 hr, or as per MD. Kcal 1,450 Protein (gm) 91 Carbohydrates (gm) 134 Fat (gm) 65 Fluid (mL) 980 Fiber (gm) 6 % RDI: 98% Kcal; 100% AA. Goal #1 Provide at least 75% of energy /protein needs through Enteral Feeding during LOS. Follow-Up By: 05/18/22 Additional Comments Continue monitoring TF tolerance and BM. <DIXIE BROWN - Last Filed: 05/13/22 07:15> Assessment and Plan Assessment and plan: I saw and evaluated the patient. I agree with the findings and the plan of care as documented in the Nurse Practitioner's~note, with the following corrections and additions. Hospitalist Physical - Constitutional Vitals: Temp Pulse Resp BP Pulse Ox 98.2 F 117 H 15 110/62 88 05/13/22 04:00 05/13/22 06:00 05/13/22 06:00 05/13/22 06:00 05/13/22 06:00 HEART Score - HEART Score Troponin: Troponin T 0.031 ng/mL (0.00-0.029) H 04/08/22 17:47 Results - Labs CBC & Chem 7: 05/13/22 04:02 05/13/22 04:02 Labs: Laboratory Last Values WBC 13.3 K/mm3 (4.5-11.0) H 05/13/22 04:02 RBC 3.14 M/mm3 (3.65-5.03) L 05/13/22 04:02 Hgb 8.7 gm/dl (11.8-15.2) L 05/13/22 04:02 Hct 28.0 % (35.5-45.6) L 05/13/22 04:02 MCV 89 fl (84-94) 05/13/22 04:02 MCH 28 pg (28-32) 05/13/22 04:02 MCHC 31 % (32-34) L 05/13/22 04:02 RDW 15.2 % (13.2-15.2) 05/13/22 04:02 Plt Count 418 K/mm3 (140-440) 05/13/22 04:02 Lymph % (Auto) 8.1 % (13.4-35.0) L 05/09/22 15:15 [place] % (Auto) 4.9 % (0.0-7.3) 05/09/22 15:15 Eos % (Auto) 0.6 % (0.0-4.3) 05/09/22 15:15 Baso % (Auto) 0.3 % (0.0-1.8) 05/09/22 15:15 Lymph # (Auto) 0.9 K/mm3 (1.2-5.4) L 05/09/22 15:15 [place] # (Auto) 0.5 K/mm3 (0.0-0.8) 05/09/22 15:15 Eos # (Auto) 0.1 K/mm3 (0.0-0.4) 05/09/22 15:15 Baso # (Auto) 0.0 K/mm3 (0.0-0.1) 05/09/22 15:15 Add Manual Diff Complete 04/02/22 19:39 Total Counted 100 04/02/22 19:39 Seg Neutrophils % 86.1 % (40.0-70.0) H 05/09/22 15:15 Seg Neuts % (Manual) 94.0 % (40.0-70.0) H 04/02/22 19:39 Band Neutrophils % 0 % 04/02/22 19:39 Lymphocytes % (Manual) 1.0 % (13.4-35.0) L 04/02/22 19:39 Reactive Lymphs % (Man) 0 % 04/02/22 19:39 Monocytes % (Manual) 5.0 % (0.0-7.3) 04/02/22 19:39 Eosinophils % (Manual) 0 % (0.0-4.3) 04/02/22 19:39 Basophils % (Manual) 0 % (0.0-1.8) 04/02/22 19:39 Metamyelocytes % 0 % 04/02/22 19:39 Myelocytes % 0 % 04/02/22 19:39 Promyelocytes % 0 % 04/02/22 19:39 Blast Cells % 0 % 04/02/22 19:39 Nucleated RBC % Not Reportable 04/02/22 19:39 Seg Neutrophils # 9.2 K/mm3 (1.8-7.7) H 05/09/22 15:15 Seg Neutrophils # Man 13.4 K/mm3 (1.8-7.7) H 04/02/22 19:39 Band Neutrophils # 0.0 K/mm3 04/02/22 19:39 Lymphocytes # (Manual) 0.1 K/mm3 (1.2-5.4) L 04/02/22 19:39 Abs React Lymphs (Man) 0.0 K/mm3 04/02/22 19:39 Monocytes # (Manual) 0.7 K/mm3 (0.0-0.8) 04/02/22 19:39 Eosinophils # (Manual) 0.0 K/mm3 (0.0-0.4) 04/02/22 19:39 Basophils # (Manual) 0.0 K/mm3 (0.0-0.1) 04/02/22 19:39 Metamyelocytes # 0.0 K/mm3 04/02/22 19:39 Myelocytes # 0.0 K/mm3 04/02/22 19:39 Promyelocytes # 0.0 K/mm3 04/02/22 19:39 Blast Cells # 0.0 K/mm3 04/02/22 19:39 WBC Morphology Not Reportable 04/02/22 19:39 Hypersegmented Neuts Not Reportable 04/02/22 19:39 Hyposegmented Neuts Not Reportable 04/02/22 19:39 Hypogranular Neuts Not Reportable 04/02/22 19:39 Smudge Cells Not Reportable 04/02/22 19:39 Toxic Granulation Not Reportable 04/02/22 19:39 Toxic Vacuolation Not Reportable 04/02/22 19:39 Dohle Bodies Not Reportable 04/02/22 19:39 Pel[place]-Huet Anomaly Not Reportable 04/02/22 19:39 Terry Rods Not Reportable 04/02/22 19:39 Platelet Estimate Consistent w auto 04/02/22 19:39 Clumped Platelets Not Reportable 04/02/22 19:39 Plt Clumps, EDTA Not Reportable 04/02/22 19:39 Large Platelets Not Reportable 04/02/22 19:39 Giant Platelets Not Reportable 04/02/22 19:39 Platelet Satelliting Not Reportable 04/02/22 19:39 Plt Morphology Comment Not Reportable 04/02/22 19:39 RBC Morphology Not Reportable 04/02/22 19:39 Dimorphic RBCs Not Reportable 04/02/22 19:39 Polychromasia Not Reportable 04/02/22 19:39 Hypochromasia Not Reportable 04/02/22 19:39 Poikilocytosis Not Reportable 04/02/22 19:39 Anisocytosis 1+ 04/02/22 19:39 Microcytosis Not Reportable 04/02/22 19:39 Macrocytosis Not Reportable 04/02/22 19:39 Spherocytes Not Reportable 04/02/22 19:39 Pappenheimer Bodies Not Reportable 04/02/22 19:39 Sickle Cells Not Reportable 04/02/22 19:39 Target Cells Not Reportable 04/02/22 19:39 Tear Drop Cells Not Reportable 04/02/22 19:39 Ovalocytes Not Reportable 04/02/22 19:39 Helmet Cells Not Reportable 04/02/22 19:39 [place] Bodies Not Reportable 04/02/22 19:39 [place] Rings Not Reportable 04/02/22 19:39 [place] Cells Not Reportable 04/02/22 19:39 Bite Cells Not Reportable 04/02/22 19:39 Crenated Cell Not Reportable 04/02/22 19:39 Elliptocytes Not Reportable 04/02/22 19:39 Acanthocytes (Spur) Not Reportable 04/02/22 19:39 Rouleaux Not Reportable 04/02/22 19:39 Hemoglobin C Crystals Not Reportable 04/02/22 19:39 Schistocytes Not Reportable 04/02/22 19:39 Malaria parasites Not Reportable 04/02/22 19:39 [place] Bodies Not Reportable 04/02/22 19:39 Hem Pathologist Commnt No 04/02/22 19:39 PT 13.6 Sec. (12.2-14.9) 04/13/22 04:30 INR 0.94 (0.87-1.13) 04/13/22 04:30 APTT 35.7 Sec. (24.2-36.6) 04/07/22 03:51 ABG pH 7.383 pH Units (7.350-7.450) 05/04/22 09:36 ABG pCO2 75.0 mm Hg 05/04/22 09:36 ABG pO2 55.4 mm Hg (80.0-90.0) L 05/04/22 09:36 ABG HCO3 43.7 mmol/L (20.0-26.0) H 05/04/22 09:36 ABG O2 Saturation 87.4 % (95.0-99.0) L 05/04/22 09:36 ABG O2 Content 11.0 (0.0-44) 05/04/22 09:36 ABG Base Excess 16.1 mmol/L (-2.0-3.0) H 05/04/22 09:36 ABG Hemoglobin 9.1 gm/dl (14.0-18.0) L 05/04/22 09:36 ABG Carboxyhemoglobin 1.5 % (0.0-5.0) 05/04/22 09:36 ABG Methemoglobin 0.4 % (0.0-1.5) 05/04/22 09:36 Oxyhemoglobin 85.7 % (95.0-99.0) L 05/04/22 09:36 FiO2 30 % 05/04/22 09:36 Sodium 135 mmol/L (137-145) L 05/13/22 04:02 Potassium 4.2 mmol/L (3.6-5.0) 05/13/22 04:02 Chloride 91.1 mmol/L (98-107) L 05/13/22 04:02 Carbon Dioxide 40 mmol/L (22-30) H 05/13/22 04:02 Anion Gap 8 mmol/L 05/13/22 04:02 BUN 23 mg/dL (9-20) H 05/13/22 04:02 Creatinine < 0.2 mg/dL (0.8-1.3) L 05/13/22 04:02 Estimated GFR > 60 ml/min 05/13/22 04:02 BUN/Creatinine Ratio 115 % 05/13/22 04:02 Glucose 139 mg/dL (75-100) H 05/13/22 04:02 POC Glucose 129 mg/dL (70-105) H 05/13/22 06:32 Lactic Acid 1.90 mmol/L (0.7-2.0) 04/02/22 19:39 Calcium 8.6 mg/dL (8.4-10.2) 05/13/22 04:02 Phosphorus 3.40 mg/dL (2.5-4.5) 05/05/22 04:23 Magnesium 1.90 mg/dL (1.7-2.3) 05/05/22 04:23 Total Bilirubin 0.80 mg/dL (0.1-1.2) 04/02/22 19:39 AST 15 units/L (5-40) 04/02/22 19:39 ALT 9 units/L (7-56) 04/02/22 19:39 Alkaline Phosphatase 43 units/L (35-129) 04/02/22 19:39 Total Creatine Kinase 46 units/L (55-170) L 04/08/22 17:47 CK-MB (CK-2) 2.6 ng/mL (0.0-4.0) 04/08/22 17:47 CK-MB (CK-2) Rel Index 5.6 (0-4) H 04/08/22 17:47 Troponin T 0.031 ng/mL (0.00-0.029) H 04/08/22 17:47 C-Reactive Protein 31.60 mg/dL (0.00-1.30) H 04/04/22 04:18 Total Protein 4.6 g/dL (6.3-8.2) L 04/02/22 19:39 Albumin 2.7 g/dL (3.9-5) L 04/02/22 19:39 Albumin/Globulin Ratio 1.4 % 04/02/22 19:39 Triglycerides 80 mg/dL (2-149) 04/02/22 19:39 Cholesterol 94 mg/dL (50-199) 04/02/22 19:39 LDL Cholesterol Direct 27 mg/dL (50-130) L 04/02/22 19:39 HDL Cholesterol 47 mg/dL (40-59) 04/02/22 19:39 Cholesterol/HDL Ratio 2.00 % 04/02/22 19:39 Procalcitonin 0.08 ng/mL (<0.15) 04/04/22 04:18 Urine Color [place] (Yellow) 04/05/22 17:45 Urine Turbidity Cloudy (Clear) 04/05/22 17:45 Urine pH 5.0 (5.0-7.0) 04/05/22 17:45 Ur Specific [place] 1.021 (1.003-1.030) 04/05/22 17:45 Urine Protein 30 mg/dl mg/dL (Negative) 04/05/22 17:45 Urine Glucose (UA) Neg mg/dL (Negative) 04/05/22 17:45 Urine Ketones Tr mg/dL (Negative) 04/05/22 17:45 Urine Blood Sm (Negative) 04/05/22 17:45 Urine Nitrite Neg (Negative) 04/05/22 17:45 Urine Bilirubin Neg (Negative) 04/05/22 17:45 Urine Urobilinogen < 2.0 mg/dL (<2.0) 04/05/22 17:45 Ur Leukocyte Esterase Tr (Negative) 04/05/22 17:45 Urine WBC (Auto) 8.0 /HPF (0.0-6.0) H 04/05/22 17:45 Urine RBC (Auto) 3.0 /HPF (0.0-6.0) 04/05/22 17:45 U Epithel Cells (Auto) 2.0 /HPF (0-13.0) 04/05/22 17:45 Urine Bacteria (Auto) 1+ /HPF (Negative) 04/02/22 Unknown Hyaline Casts 1 /LPF 04/05/22 17:45 Urine Mucus 3+ /HPF 04/05/22 17:45 Nasal Screen MRSA (PCR) Negative (Negative) 04/05/22 12:37 Vancomycin Trough 6.0 ug/mL (5.0-20.0) 04/05/22 18:53 Coronavirus (PCR) Negative (Negative) 04/07/22 14:52 Perez/IV: Voiding Method Condom Catheter Active Medications - Current Medications Current Medications: Generic Name Dose Route Start Last Admin Trade Name Freq PRN Reason Stop Dose Admin Acetaminophen 650 mg 04/02/22 23:53 05/04/22 21:37 Acetaminophen 325 Mg Tab PO 650 mg Q6H PRN Administration Pain MILD(1-3)/Fever >100.5/FAITH Acetylcysteine 200 mg 05/04/22 20:00 05/11/22 19:46 Acetylcysteine 20% 200 Mg/1 Ml *For Inhalation Use* INHALATION Not Given Q12HRT SEGUNDO Albuterol 2.5 mg 05/05/22 20:00 05/12/22 20:45 Albuterol 2.5 Mg/3 Ml Nebu IH 2.5 mg Q12HRT SEGUNDO Administration Bisacodyl 10 mg 04/07/22 09:44 04/12/22 10:06 Bisacodyl 10 Mg Rect Supp OH 10 mg QDAY PRN Administration Constipation Docusate Sodium 100 mg 04/28/22 10:00 05/12/22 21:58 Docusate Sodium 100 Mg/10 Ml Oral Liqd FEEDTUBE 100 mg BID SEGUNDO Administration Famotidine 20 mg 04/06/22 10:00 05/12/22 22:00 Famotidine 20 Mg Tab FEEDTUBE 20 mg BID SEGUNDO Administration Fentanyl 50 mcg 04/04/22 15:56 05/11/22 22:00 Fentanyl 100 Mcg/2 Ml Inj IV 50 mcg Q2HR PRN Administration For CPOT of greater than 3 Heparin Sodium (Porcine) 5,000 unit 04/03/22 06:00 05/13/22 06:44 Heparin 5,000 Unit/1 Ml Vial SUB-Q 5,000 unit Q8HR [facility] Administration Insulin Human Lispro 0 unit 05/05/22 06:00 05/13/22 06:44 Insulin Lispro 100 Unit/Ml SUB-Q Not Given Q8HR [facility] Protocol Magnesium Hydroxide 30 ml 04/02/22 23:53 Magnesium Hydroxide (Mom) Oral Liqd Udc PO Q4H PRN Constipation Metoprolol Tartrate 12.5 mg 05/03/22 13:00 05/13/22 05:43 Metoprolol Tartrate 25 Mg Tab FEEDTUBE Not Given Q6HR [facility] Ondansetron HCl 4 mg 04/02/22 23:53 Ondansetron 4 Mg/2 Ml Inj IV Q8H PRN Nausea And Vomiting Polyethylene Glycol 17 gm 04/08/22 10:00 05/12/22 09:42 Polyethylene Glycol 3350 17 Gm Powder PO 17 gm QDAY SEGUNDO Administration Quetiapine Fumarate 50 mg 04/28/22 10:00 05/12/22 22:50 Quetiapine 25 Mg Tab FEEDTUBE 50 mg BID [facility] Administration Scopolamine 1 each 05/12/22 09:00 05/12/22 17:37 Scopolamine Transdermal Patch 72 Hr TD Not Given Q3D SEGUNDO Senna 17.6 mg 04/28/22 10:00 05/12/22 21:58 Sennosides Oral Liqd 8.8 Mg/5 Ml Oral Liqd FEEDTUBE 17.6 mg Q12HR SEGUNDO Administration Sodium Chloride 10 ml 04/03/22 10:00 05/12/22 22:43 Sodium Chloride 0.9% 10 Ml Flush Syringe IV Not Given BID SEGUNDO Sodium Chloride 10 ml 04/02/22 23:53 Sodium Chloride 0.9% 10 Ml Flush Syringe IV PRN PRN LINE FLUSH Nutrition/Malnutrition Assess - Dietary Evaluation Nutrition/Malnutrition Findings: Nutrition Notes Start: 04/04/22 13:13 Freq: Status: Active Protocol: Document 05/11/22 11:49 COLLEEN (Rec: 05/11/22 12:02 COLLEEN [id number]) Nutrition Notes Initial or Follow up Reassessment Current Diagnosis Coronary Artery Disease, Decubitus(Pressure Ulcer), Sepsis,Respiratory Failure, Malnutrition Other Pertinent Diagnosis HCAP, ALS, Broncopneumonia, NSTEMI, Cardiomyopathy, ... Current Diet TF-Vital AF 1.2 Inderjit @ 50 ml/hr (since D 04/15). Labs/Tests 05/09: Cl 92.9, CO2 40, Crea < 0.2, Glu 141. Pertinent Medications 05/11: Nutritionally unremarkable. Height 5 ft 4.8 in Weight 46.8 kg [place] Body Weight (kg) 61.27 BMI 17.2 Weight change and time frame No body weight change reported in 5 weeks. Weight Status Underweight Subjective/Other Information RD consult for routine F/U on TF tolerance/continuation. TF continues as prescribed, and well tolerated, according to RN notes. Pt continues on Mechanical ventilation, O2 saturation @ 93%, according to Physical Assessment Histroy notes. Pt will be discharged home with family; awaiting home- Vent family training to be over on 05/12, according to Progress notes. Percent of energy/protein needs met: Prescribed TF-Vital AF 1.2 Inderjit @ 50 ml/hr provides for energy/protein needs (1,450 Kcal/91 g) during LOS, 98% Kcal; 100% AA. Burn Absent Trauma Absent GI Symptoms Constipation Difficulty In Swallowing,Chewing Food Allergy No Skin Integrity/Comment Sacral open wound. Current % PO Other Minimum of two criteria No #1 Nutrition Diagnosis Inadequate oral intake Diagnosis Progress(for reassessment Continues documentation) Is patient on ventilator? Yes Is Patient Ambulatory and/or Out of Bed No REE-([facility]-confined to bed) [phone] Calculation Used for Recommendations [facility] Additional Notes Protein: 1.2-2 g/Kg IBW; 73- 122 g/day. Fluids: 1 ml/Kcal, or as per MD. Nutrition Intervention Nutrition Support: Continue TF-Vital AF 1.2 Inderjit @ 50 ml/hr. Flush: 80 ml water Q 4 hr, or as per MD. Kcal 1,450 Protein (gm) 91 Carbohydrates (gm) 134 Fat (gm) 65 Fluid (mL) 980 Fiber (gm) 6 % RDI: 98% Kcal; 100% AA. Goal #1 Provide at least 75% of energy /protein needs through Enteral Feeding during LOS. Follow-Up By: 05/18/22 Additional Comments Continue monitoring TF tolerance and BM.
--- NOTE | 2022-05-12 16:56 | Progress Note ---
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 -Titrate supplemental oxygen to keep SpO2 89-92% -VAP bundle addressed, aspiration precautions HOB >40 -Monitoring renal function, hemodynamics and electrolyte profile -Accuchecks with glycemic control. target blood glucose 140-180 mg/dL. Avoid hypoglycemia -Continue enteric nutritional support, bowel regimen -VTE prophylaxis- Heparin -Avoid nephrotoxins and renally dose all medications -Stress ulcer prophylaxis- Famotidine -Mobility, frequent turning, off loading per facility protocol to prevent pressure ulcers -Maintain sleep wake cycle, avoid benzodiazepines. -Limit delirium CONDITION:CRITICAL PROGNOSIS: GUARDED CODE STATUS; FULL CODE The high probability of a clinically significant, sudden or life threatening deterioration of the respiratory, cardiovascular, neurology system required my full and direct attention, intervention and personal management. The aggregate critical care time was [33] minutes. This time is in addition to time spent perf orming reported procedures but includes the following: [x] Data Review and interpretation [x] Patient assessment and monitoring of vital signs [x] Documentation [x] Medication orders and management Subjective Date of service: 05/12/22 Principal diagnosis: Ac and ch hypercapnic and hypoxemic Resp Failure; ALS; HCAP; Sepsis; NSTEMI Interval history: Follow up for : Acute and chronic Respiratory Failure with Hypoxia and Hypercapnia 2/2 ALS;Protein calorie malnutrition;Acute Bronchopneumonia; HCAP; Hypotension; NSTEMI; Hypernatremia; Acute Metabolic Encephalopathy; H/o Amyotrophic Lateral Sclerosis Patient seen and examined. Vitals, labs, medications, chart and imaging reviewed. Discussed with respiratory and nursing care staff. s/p trach and PEG. home ventilator- plan was for discharge today, but his SpO2 remians persitently in the low 80s Discharge held Objective Vital Signs - 12hr 05/12/22 05/12/22 05/12/22 05:01 05:41 06:00 Temperature Pulse Rate 115 H 118 H 112 H Pulse Rate [ Bilateral Throughout] Respiratory 14 15 Rate Respiratory Rate [Bilateral Throughout] Blood Pressure 93/57 94/52 92/50 O2 Sat by Pulse 94 Oximetry O2 Sat by Pulse Oximetry [ Assessment] 05/12/22 05/12/22 05/12/22 07:00 08:00 08:15 Temperature 98.9 F Pulse Rate 111 H 112 H Pulse Rate [ 111 H Bilateral Throughout] Respiratory 16 16 Rate Respiratory 16 Rate [Bilateral Throughout] Blood Pressure 96/57 107/57 O2 Sat by Pulse 96 93 94 Oximetry O2 Sat by Pulse 97 Oximetry [ Assessment] 05/12/22 05/12/22 05/12/22 09:00 10:00 11:00 Temperature Pulse Rate 113 H 113 H 113 H Pulse Rate [ Bilateral Throughout] Respiratory 18 14 14 Rate Respiratory Rate [Bilateral Throughout] Blood Pressure 93/59 105/72 105/61 O2 Sat by Pulse 96 92 92 Oximetry O2 Sat by Pulse Oximetry [ Assessment] 05/12/22 05/12/22 05/12/22 12:00 12:10 13:00 Temperature 98.1 F Pulse Rate 121 H 115 H Pulse Rate [ Bilateral Throughout] Respiratory 15 13 Rate Respiratory Rate [Bilateral Throughout] Blood Pressure 104/59 95/59 O2 Sat by Pulse 93 93 92 Oximetry O2 Sat by Pulse Oximetry [ Assessment] 05/12/22 05/12/22 05/12/22 13:45 14:00 15:00 Temperature Pulse Rate 123 H 120 H 124 H Pulse Rate [ Bilateral Throughout] Respiratory 14 17 Rate Respiratory Rate [Bilateral Throughout] Blood Pressure 122/69 120/73 115/70 O2 Sat by Pulse 86 84 Oximetry O2 Sat by Pulse Oximetry [ Assessment] Constitutional: no acute distress, alert, other (resting in bed with mildly increased respiratory effort at rest) Eyes: non-icteric ENT: oropharynx moist, other (+ midline tracheostomy) Neck: supple, no lymphadenopathy, no JVD Effort: mildly labored Ascultation: Bilateral: diminished breath sounds (bases), rhonchi Percussion: Bilateral: not dull Cardiovascular: regular rate and rhythm, other (S1,S2) Gastrointestinal: normoactive bowel sounds, soft, non-tender, non-distended Integumentary: normal Extremities: no cyanosis, no edema, pink and warm, pulses normal Neurologic: pupils equal and round, other (functional quadriplegia) Psychiatric: mood appropriate, affect normal, other CBC and BMP: 05/24/22 04:22 05/24/22 04:22 ABG, PT/INR, D-dimer: ABG ABG pH 7.383 pH Units (7.350-7.450) 05/04/22 09:36 ABG pCO2 75.0 mm Hg 05/04/22 09:36 ABG pO2 55.4 mm Hg (80.0-90.0) L 05/04/22 09:36 ABG O2 Saturation 87.4 % (95.0-99.0) L 05/04/22 09:36 PT/INR, D-dimer PT 13.6 Sec. (12.2-14.9) 04/13/22 04:30 INR 0.94 (0.87-1.13) 04/13/22 04:30 Abnormal lab findings: Abnormal Labs 04/02/22 04/02/22 04/02/22 19:39 19:39 19:39 WBC 14.3 H RBC Hgb Hct MCV 96 H Plt Count 104 L Lymph % (Auto) [place] % (Auto) Lymph # (Auto) [place] # (Auto) Seg Neutrophils % Seg Neuts % (Manual) 94.0 H Lymphocytes % (Manual) 1.0 L Seg Neutrophils # Seg Neutrophils # Man 13.4 H Lymphocytes # (Manual) 0.1 L PT 15.9 H INR 1.14 H ABG pH ABG pO2 ABG HCO3 ABG O2 Saturation ABG Base Excess ABG Hemoglobin Oxyhemoglobin Sodium 151 H Potassium Chloride Carbon Dioxide BUN Creatinine 0.5 L Glucose POC Glucose Calcium 8.2 L Phosphorus Magnesium 1.60 L Total Creatine Kinase CK-MB (CK-2) Rel Index Troponin T 0.048 H C-Reactive Protein Total Protein 4.6 L Albumin 2.7 L LDL Cholesterol Direct 27 L Urine WBC (Auto) 04/02/22 04/03/22 04/03/22 19:42 05:14 06:30 WBC RBC Hgb Hct MCV Plt Count Lymph % (Auto) [place] % (Auto) Lymph # (Auto) [place] # (Auto) Seg Neutrophils % Seg Neuts % (Manual) Lymphocytes % (Manual) Seg Neutrophils # Seg Neutrophils # Man Lymphocytes # (Manual) PT INR ABG pH 7.471 H 7.496 H ABG pO2 47.8 L 91.0 H ABG HCO3 30.6 H ABG O2 Saturation 94.4 L ABG Base Excess 6.2 H ABG Hemoglobin 11.0 L 12.8 L Oxyhemoglobin 93.1 L Sodium 149 H Potassium 3.4 L Chloride Carbon Dioxide BUN Creatinine 0.4 L Glucose POC Glucose Calcium Phosphorus Magnesium Total Creatine Kinase CK-MB (CK-2) Rel Index Troponin T C-Reactive Protein Total Protein Albumin LDL Cholesterol Direct Urine WBC (Auto) 04/04/22 04/04/22 04/04/22 04:18 04:18 05:50 WBC 11.8 H RBC Hgb Hct MCV Plt Count 132 L Lymph % (Auto) [place] % (Auto) Lymph # (Auto) [place] # (Auto) Seg Neutrophils % Seg Neuts % (Manual) Lymphocytes % (Manual) Seg Neutrophils # Seg Neutrophils # Man Lymphocytes # (Manual) PT INR ABG pH 7.517 H ABG pO2 115.5 H ABG HCO3 29.9 H ABG O2 Saturation ABG Base Excess 6.7 H ABG Hemoglobin 12.3 L Oxyhemoglobin Sodium Potassium 3.5 L Chloride Carbon Dioxide 31 H BUN Creatinine 0.3 L Glucose 153 H POC Glucose Calcium Phosphorus 1.40 L Magnesium 1.50 L Total Creatine Kinase CK-MB (CK-2) Rel Index Troponin T C-Reactive Protein 31.60 H Total Protein Albumin LDL Cholesterol Direct Urine WBC (Auto) 04/05/22 04/05/22 04/05/22 02:50 05:25 11:28 WBC RBC Hgb Hct MCV Plt Count Lymph % (Auto) [place] % (Auto) Lymph # (Auto) [place] # (Auto) Seg Neutrophils % Seg Neuts % (Manual) Lymphocytes % (Manual) Seg Neutrophils # Seg Neutrophils # Man Lymphocytes # (Manual) PT INR ABG pH 7.455 H ABG pO2 50.7 L ABG HCO3 30.5 H ABG O2 Saturation 89.4 L ABG Base Excess 5.9 H ABG Hemoglobin 11.8 L Oxyhemoglobin 88.2 L Sodium Potassium Chloride Carbon Dioxide 32 H BUN Creatinine 0.2 L Glucose 110 H POC Glucose 124 H Calcium 7.9 L Phosphorus Magnesium Total Creatine Kinase CK-MB (CK-2) Rel Index Troponin T C-Reactive Protein Total Protein Albumin LDL Cholesterol Direct Urine WBC (Auto) 04/05/22 04/05/22 04/06/22 17:45 Unknown 04:00 WBC RBC 3.55 L Hgb 11.1 L 11.5 L Hct 33.2 L 35.1 L MCV Plt Count 113 L 114 L Lymph % (Auto) [place] % (Auto) Lymph # (Auto) [place] # (Auto) Seg Neutrophils % Seg Neuts % (Manual) Lymphocytes % (Manual) Seg Neutrophils # Seg Neutrophils # Man Lymphocytes # (Manual) PT INR ABG pH ABG pO2 ABG HCO3 ABG O2 Saturation ABG Base Excess ABG Hemoglobin Oxyhemoglobin Sodium Potassium Chloride Carbon Dioxide BUN Creatinine Glucose POC Glucose Calcium Phosphorus Magnesium Total Creatine Kinase CK-MB (CK-2) Rel Index Troponin T C-Reactive Protein Total Protein Albumin LDL Cholesterol Direct Urine WBC (Auto) 8.0 H 04/06/22 04/06/22 04/07/22 04:00 08:30 00:04 WBC RBC Hgb Hct MCV Plt Count Lymph % (Auto) [place] % (Auto) Lymph # (Auto) [place] # (Auto) Seg Neutrophils % Seg Neuts % (Manual) Lymphocytes % (Manual) Seg Neutrophils # Seg Neutrophils # Man Lymphocytes # (Manual) PT INR ABG pH ABG pO2 60.8 L ABG HCO3 30.5 H ABG O2 Saturation 93.3 L ABG Base Excess 4.9 H ABG Hemoglobin 12.4 L Oxyhemoglobin 92.1 L Sodium Potassium 3.0 L Chloride Carbon Dioxide BUN Creatinine < 0.2 L Glucose 130 H POC Glucose 117 H Calcium 8.1 L Phosphorus Magnesium Total Creatine Kinase CK-MB (CK-2) Rel Index Troponin T C-Reactive Protein Total Protein Albumin LDL Cholesterol Direct Urine WBC (Auto) 04/07/22 04/07/22 04/07/22 03:51 03:51 03:51 WBC 14.6 H RBC 3.57 L Hgb 11.1 L Hct 33.2 L MCV Plt Count 118 L Lymph % (Auto) 4.3 L [place] % (Auto) 8.8 H Lymph # (Auto) 0.6 L [place] # (Auto) 1.3 H Seg Neutrophils % 86.6 H Seg Neuts % (Manual) Lymphocytes % (Manual) Seg Neutrophils # 12.7 H Seg Neutrophils # Man Lymphocytes # (Manual) PT 15.2 H INR ABG pH ABG pO2 ABG HCO3 ABG O2 Saturation ABG Base Excess ABG Hemoglobin Oxyhemoglobin Sodium 133 L Potassium Chloride 96.0 L Carbon Dioxide 31 H BUN Creatinine 0.2 L Glucose 130 H POC Glucose Calcium 8.0 L Phosphorus Magnesium Total Creatine Kinase CK-MB (CK-2) Rel Index Troponin T C-Reactive Protein Total Protein Albumin LDL Cholesterol Direct Urine WBC (Auto) 04/07/22 04/07/22 04/08/22 04:25 09:10 04:49 WBC 16.1 H RBC 3.54 L Hgb 10.9 L Hct 33.3 L MCV Plt Count Lymph % (Auto) [place] % (Auto) Lymph # (Auto) [place] # (Auto) Seg Neutrophils % Seg Neuts % (Manual) Lymphocytes % (Manual) Seg Neutrophils # Seg Neutrophils # Man Lymphocytes # (Manual) PT INR ABG pH ABG pO2 71.0 L 63.4 L ABG HCO3 31.5 H 40.0 H ABG O2 Saturation 94.9 L ABG Base Excess 5.9 H 13.6 H ABG Hemoglobin 11.3 L 9.0 L Oxyhemoglobin 93.6 L Sodium Potassium Chloride Carbon Dioxide BUN Creatinine Glucose POC Glucose Calcium Phosphorus Magnesium Total Creatine Kinase CK-MB (CK-2) Rel Index Troponin T C-Reactive Protein Total Protein Albumin LDL Cholesterol Direct Urine WBC (Auto) 04/08/22 04/08/22 04/08/22 04:49 09:53 10:25 WBC RBC Hgb Hct MCV Plt Count Lymph % (Auto) [place] % (Auto) Lymph # (Auto) [place] # (Auto) Seg Neutrophils % Seg Neuts % (Manual) Lymphocytes % (Manual) Seg Neutrophils # Seg Neutrophils # Man Lymphocytes # (Manual) PT INR ABG pH ABG pO2 ABG HCO3 34.7 H ABG O2 Saturation ABG Base Excess 7.9 H ABG Hemoglobin 11.0 L Oxyhemoglobin Sodium 136 L Potassium Chloride 97.7 L Carbon Dioxide 33 H BUN Creatinine 0.2 L Glucose 155 H POC Glucose Calcium Phosphorus Magnesium Total Creatine Kinase CK-MB (CK-2) Rel Index Troponin T 0.030 H C-Reactive Protein Total Protein Albumin LDL Cholesterol Direct Urine WBC (Auto) 04/08/22 04/08/22 04/08/22 11:19 17:47 18:06 WBC RBC Hgb Hct MCV Plt Count Lymph % (Auto) [place] % (Auto) Lymph # (Auto) [place] # (Auto) Seg Neutrophils % Seg Neuts % (Manual) Lymphocytes % (Manual) Seg Neutrophils # Seg Neutrophils # Man Lymphocytes # (Manual) PT INR ABG pH ABG pO2 ABG HCO3 ABG O2 Saturation ABG Base Excess ABG Hemoglobin Oxyhemoglobin Sodium Potassium Chloride Carbon Dioxide BUN Creatinine Glucose POC Glucose 121 H Calcium Phosphorus Magnesium Total Creatine Kinase 31 L 46 L CK-MB (CK-2) Rel Index 6.4 H 5.6 H Troponin T 0.030 H 0.031 H C-Reactive Protein Total Protein Albumin LDL Cholesterol Direct Urine WBC (Auto) 04/09/22 04/09/22 04/09/22 04:35 04:35 11:24 WBC 11.5 H RBC 3.16 L Hgb 9.9 L Hct 29.4 L MCV Plt Count 131 L Lymph % (Auto) [place] % (Auto) Lymph # (Auto) [place] # (Auto) Seg Neutrophils % Seg Neuts % (Manual) Lymphocytes % (Manual) Seg Neutrophils # Seg Neutrophils # Man Lymphocytes # (Manual) PT INR ABG pH ABG pO2 ABG HCO3 ABG O2 Saturation ABG Base Excess ABG Hemoglobin Oxyhemoglobin Sodium Potassium Chloride 97.1 L Carbon Dioxide 35 H BUN Creatinine < 0.2 L Glucose 145 H POC Glucose 147 H Calcium Phosphorus Magnesium Total Creatine Kinase CK-MB (CK-2) Rel Index Troponin T C-Reactive Protein Total Protein Albumin LDL Cholesterol Direct Urine WBC (Auto) 04/09/22 04/09/22 04/09/22 13:00 17:32 23:48 WBC RBC Hgb Hct MCV Plt Count Lymph % (Auto) [place] % (Auto) Lymph # (Auto) [place] # (Auto) Seg Neutrophils % Seg Neuts % (Manual) Lymphocytes % (Manual) Seg Neutrophils # Seg Neutrophils # Man Lymphocytes # (Manual) PT INR ABG pH ABG pO2 66.6 L ABG HCO3 38.2 H ABG O2 Saturation 94.4 L ABG Base Excess 10.7 H ABG Hemoglobin 10.7 L Oxyhemoglobin 92.8 L Sodium Potassium Chloride Carbon Dioxide BUN Creatinine Glucose POC Glucose 143 H 114 H Calcium Phosphorus Magnesium Total Creatine Kinase CK-MB (CK-2) Rel Index Troponin T C-Reactive Protein Total Protein Albumin LDL Cholesterol Direct Urine WBC (Auto) 04/10/22 04/10/22 04/10/22 04:48 04:48 05:34 WBC RBC 2.91 L Hgb 9.1 L Hct 27.7 L MCV 95 H Plt Count Lymph % (Auto) [place] % (Auto) Lymph # (Auto) [place] # (Auto) Seg Neutrophils % Seg Neuts % (Manual) Lymphocytes % (Manual) Seg Neutrophils # Seg Neutrophils # Man Lymphocytes # (Manual) PT INR ABG pH ABG pO2 ABG HCO3 ABG O2 Saturation ABG Base Excess ABG Hemoglobin Oxyhemoglobin Sodium Potassium Chloride 95.7 L Carbon Dioxide 38 H BUN Creatinine < 0.2 L Glucose 118 H POC Glucose 127 H Calcium Phosphorus Magnesium Total Creatine Kinase CK-MB (CK-2) Rel Index Troponin T C-Reactive Protein Total Protein Albumin LDL Cholesterol Direct Urine WBC (Auto) 04/10/22 04/11/22 04/11/22 23:10 04:15 04:15 WBC 17.2 H RBC 2.98 L Hgb 9.2 L Hct 27.9 L MCV Plt Count Lymph % (Auto) [place] % (Auto) Lymph # (Auto) [place] # (Auto) Seg Neutrophils % Seg Neuts % (Manual) Lymphocytes % (Manual) Seg Neutrophils # Seg Neutrophils # Man Lymphocytes # (Manual) PT INR ABG pH ABG pO2 ABG HCO3 ABG O2 Saturation ABG Base Excess ABG Hemoglobin Oxyhemoglobin Sodium Potassium Chloride 96.1 L Carbon Dioxide 35 H BUN Creatinine < 0.2 L Glucose 138 H POC Glucose 106 H Calcium 8.3 L Phosphorus Magnesium Total Creatine Kinase CK-MB (CK-2) Rel Index Troponin T C-Reactive Protein Total Protein Albumin LDL Cholesterol Direct Urine WBC (Auto) 04/11/22 04/11/22 04/11/22 05:31 13:18 16:20 WBC RBC Hgb Hct MCV Plt Count Lymph % (Auto) [place] % (Auto) Lymph # (Auto) [place] # (Auto) Seg Neutrophils % Seg Neuts % (Manual) Lymphocytes % (Manual) Seg Neutrophils # Seg Neutrophils # Man Lymphocytes # (Manual) PT INR ABG pH ABG pO2 57.8 L ABG HCO3 40.5 H ABG O2 Saturation 90.6 L ABG Base Excess 12.6 H ABG Hemoglobin 10.5 L Oxyhemoglobin 89.0 L Sodium Potassium Chloride Carbon Dioxide BUN Creatinine Glucose POC Glucose 129 H 132 H Calcium Phosphorus Magnesium Total Creatine Kinase CK-MB (CK-2) Rel Index Troponin T C-Reactive Protein Total Protein Albumin LDL Cholesterol Direct Urine WBC (Auto) 04/11/22 04/11/2222 17:29 23:17 04:00 WBC 17.4 H RBC 2.96 L Hgb 9.0 L Hct 28.0 L MCV 95 H Plt Count Lymph % (Auto) [place] % (Auto) Lymph # (Auto) [place] # (Auto) Seg Neutrophils % Seg Neuts % (Manual) Lymphocytes % (Manual) Seg Neutrophils # Seg Neutrophils # Man Lymphocytes # (Manual) PT INR ABG pH ABG pO2 ABG HCO3 ABG O2 Saturation ABG Base Excess ABG Hemoglobin Oxyhemoglobin Sodium Potassium Chloride Carbon Dioxide BUN Creatinine Glucose POC Glucose 125 H 151 H Calcium Phosphorus Magnesium Total Creatine Kinase CK-MB (CK-2) Rel Index Troponin T C-Reactive Protein Total Protein Albumin LDL Cholesterol Direct Urine WBC (Auto) 04/12/22 04/12/22 04/12/22 04:00 17:03 23:39 WBC RBC Hgb Hct MCV Plt Count Lymph % (Auto) [place] % (Auto) Lymph # (Auto) [place] # (Auto) Seg Neutrophils % Seg Neuts % (Manual) Lymphocytes % (Manual) Seg Neutrophils # Seg Neutrophils # Man Lymphocytes # (Manual) PT INR ABG pH ABG pO2 ABG HCO3 ABG O2 Saturation ABG Base Excess ABG Hemoglobin Oxyhemoglobin Sodium Potassium Chloride 97.4 L Carbon Dioxide 37 H BUN Creatinine < 0.2 L Glucose 127 H POC Glucose 106 H 107 H Calcium Phosphorus Magnesium Total Creatine Kinase CK-MB (CK-2) Rel Index Troponin T C-Reactive Protein Total Protein Albumin LDL Cholesterol Direct Urine WBC (Auto) 04/13/22 04/13/22 04/13/22 04:30 04:30 17:39 WBC 14.1 H RBC 2.66 L Hgb 8.4 L Hct 25.5 L MCV 96 H Plt Count Lymph % (Auto) [place] % (Auto) Lymph # (Auto) [place] # (Auto) Seg Neutrophils % Seg Neuts % (Manual) Lymphocytes % (Manual) Seg Neutrophils # Seg Neutrophils # Man Lymphocytes # (Manual) PT INR ABG pH ABG pO2 ABG HCO3 ABG O2 Saturation ABG Base Excess ABG Hemoglobin Oxyhemoglobin Sodium Potassium Chloride 93.9 L Carbon Dioxide 39 H BUN Creatinine < 0.2 L Glucose POC Glucose 134 H Calcium Phosphorus 1.90 L Magnesium Total Creatine Kinase CK-MB (CK-2) Rel Index Troponin T C-Reactive Protein Total Protein Albumin LDL Cholesterol Direct Urine WBC (Auto) 04/14/22 04/14/22 04/14/22 05:03 05:03 09:10 WBC 15.6 H RBC 3.02 L Hgb 9.3 L Hct 28.8 L MCV 95 H Plt Count Lymph % (Auto) [place] % (Auto) Lymph # (Auto) [place] # (Auto) Seg Neutrophils % Seg Neuts % (Manual) Lymphocytes % (Manual) Seg Neutrophils # Seg Neutrophils # Man Lymphocytes # (Manual) PT INR ABG pH ABG pO2 66.9 L ABG HCO3 44.5 H ABG O2 Saturation ABG Base Excess 17.2 H ABG Hemoglobin 8.1 L Oxyhemoglobin 94.8 L Sodium Potassium Chloride 93.8 L Carbon Dioxide 42 H* BUN Creatinine < 0.2 L Glucose 117 H POC Glucose Calcium Phosphorus Magnesium Total Creatine Kinase CK-MB (CK-2) Rel Index Troponin T C-Reactive Protein Total Protein Albumin LDL Cholesterol Direct Urine WBC (Auto) 04/15/22 04/15/22 04/16/22 04:44 04:44 04:16 WBC 13.0 H 12.6 H RBC 3.19 L 3.09 L Hgb 9.6 L 9.5 L Hct 30.2 L 29.1 L MCV 95 H Plt Count 456 H Lymph % (Auto) [place] % (Auto) Lymph # (Auto) [place] # (Auto) Seg Neutrophils % Seg Neuts % (Manual) Lymphocytes % (Manual) Seg Neutrophils # Seg Neutrophils # Man Lymphocytes # (Manual) PT INR ABG pH ABG pO2 ABG HCO3 ABG O2 Saturation ABG Base Excess ABG Hemoglobin Oxyhemoglobin Sodium Potassium Chloride 95.5 L Carbon Dioxide 37 H BUN Creatinine < 0.2 L Glucose POC Glucose Calcium Phosphorus Magnesium Total Creatine Kinase CK-MB (CK-2) Rel Index Troponin T C-Reactive Protein Total Protein Albumin LDL Cholesterol Direct Urine WBC (Auto) 04/16/22 04/16/22 04/16/22 04:16 05:00 14:00 WBC RBC Hgb Hct MCV Plt Count Lymph % (Auto) [place] % (Auto) Lymph # (Auto) [place] # (Auto) Seg Neutrophils % Seg Neuts % (Manual) Lymphocytes % (Manual) Seg Neutrophils # Seg Neutrophils # Man Lymphocytes # (Manual) PT INR ABG pH 7.324 L ABG pO2 55.6 L ABG HCO3 45.3 H ABG O2 Saturation 87.1 L ABG Base Excess 16.6 H ABG Hemoglobin 8.6 L Oxyhemoglobin 85.7 L Sodium Potassium Chloride 97.6 L Carbon Dioxide 36 H BUN Creatinine < 0.2 L Glucose 109 H POC Glucose 120 H Calcium Phosphorus Magnesium Total Creatine Kinase CK-MB (CK-2) Rel Index Troponin T C-Reactive Protein Total Protein Albumin LDL Cholesterol Direct Urine WBC (Auto) 04/17/22 04/17/22 04/17/22 04:36 04:36 04:57 WBC 14.4 H RBC 3.08 L Hgb 9.4 L Hct 29.0 L MCV Plt Count Lymph % (Auto) [place] % (Auto) Lymph # (Auto) [place] # (Auto) Seg Neutrophils % Seg Neuts % (Manual) Lymphocytes % (Manual) Seg Neutrophils # Seg Neutrophils # Man Lymphocytes # (Manual) PT INR ABG pH ABG pO2 ABG HCO3 ABG O2 Saturation ABG Base Excess ABG Hemoglobin Oxyhemoglobin Sodium Potassium Chloride 95.9 L Carbon Dioxide 39 H BUN Creatinine < 0.2 L Glucose 140 H POC Glucose 137 H Calcium 8.3 L Phosphorus Magnesium Total Creatine Kinase CK-MB (CK-2) Rel Index Troponin T C-Reactive Protein Total Protein Albumin LDL Cholesterol Direct Urine WBC (Auto) 04/17/22 04/17/22 04/18/22 09:15 18:01 04:20 WBC 11.2 H RBC 3.00 L Hgb 9.3 L Hct 28.6 L MCV 95 H Plt Count Lymph % (Auto) [place] % (Auto) Lymph # (Auto) [place] # (Auto) Seg Neutrophils % Seg Neuts % (Manual) Lymphocytes % (Manual) Seg Neutrophils # Seg Neutrophils # Man Lymphocytes # (Manual) PT INR ABG pH 7.345 L ABG pO2 ABG HCO3 48.2 H ABG O2 Saturation ABG Base Excess 19.2 H ABG Hemoglobin 9.7 L Oxyhemoglobin Sodium Potassium Chloride Carbon Dioxide BUN Creatinine Glucose POC Glucose 129 H Calcium Phosphorus Magnesium Total Creatine Kinase CK-MB (CK-2) Rel Index Troponin T C-Reactive Protein Total Protein Albumin LDL Cholesterol Direct Urine WBC (Auto) 04/18/22 04/18/22 04/18/22 04:20 17:35 23:50 WBC RBC Hgb Hct MCV Plt Count Lymph % (Auto) [place] % (Auto) Lymph # (Auto) [place] # (Auto) Seg Neutrophils % Seg Neuts % (Manual) Lymphocytes % (Manual) Seg Neutrophils # Seg Neutrophils # Man Lymphocytes # (Manual) PT INR ABG pH ABG pO2 ABG HCO3 ABG O2 Saturation ABG Base Excess ABG Hemoglobin Oxyhemoglobin Sodium Potassium Chloride 96.8 L Carbon Dioxide 43 H* BUN 22 H Creatinine < 0.2 L Glucose 137 H POC Glucose 128 H 123 H Calcium 8.2 L Phosphorus Magnesium Total Creatine Kinase CK-MB (CK-2) Rel Index Troponin T C-Reactive Protein Total Protein Albumin LDL Cholesterol Direct Urine WBC (Auto) 04/19/22 04/19/22 04/19/22 04:08 04:08 08:50 WBC 16.8 H RBC 3.18 L Hgb 9.8 L Hct 30.1 L MCV 95 H Plt Count Lymph % (Auto) [place] % (Auto) Lymph # (Auto) [place] # (Auto) Seg Neutrophils % Seg Neuts % (Manual) Lymphocytes % (Manual) Seg Neutrophils # Seg Neutrophils # Man Lymphocytes # (Manual) PT INR ABG pH ABG pO2 56.0 L ABG HCO3 47.1 H ABG O2 Saturation 93.3 L ABG Base Excess 20.1 H ABG Hemoglobin 8.0 L Oxyhemoglobin 91.8 L Sodium Potassium Chloride 96.2 L Carbon Dioxide 40 H BUN 24 H Creatinine < 0.2 L Glucose 125 H POC Glucose Calcium 8.3 L Phosphorus Magnesium Total Creatine Kinase CK-MB (CK-2) Rel Index Troponin T C-Reactive Protein Total Protein Albumin LDL Cholesterol Direct Urine WBC (Auto) 04/19/22 04/20/22 04/20/22 12:02 00:40 04:49 WBC 14.7 H RBC 3.36 L Hgb 10.3 L Hct 32.0 L MCV 95 H Plt Count Lymph % (Auto) [place] % (Auto) Lymph # (Auto) [place] # (Auto) Seg Neutrophils % Seg Neuts % (Manual) Lymphocytes % (Manual) Seg Neutrophils # Seg Neutrophils # Man Lymphocytes # (Manual) PT INR ABG pH ABG pO2 ABG HCO3 ABG O2 Saturation ABG Base Excess ABG Hemoglobin Oxyhemoglobin Sodium Potassium Chloride Carbon Dioxide BUN Creatinine Glucose POC Glucose 124 H 140 H Calcium Phosphorus Magnesium Total Creatine Kinase CK-MB (CK-2) Rel Index Troponin T C-Reactive Protein Total Protein Albumin LDL Cholesterol Direct Urine WBC (Auto) 04/20/22 04/20/22 04/21/22 05:36 11:40 04:05 WBC RBC Hgb Hct MCV Plt Count Lymph % (Auto) [place] % (Auto) Lymph # (Auto) [place] # (Auto) Seg Neutrophils % Seg Neuts % (Manual) Lymphocytes % (Manual) Seg Neutrophils # Seg Neutrophils # Man Lymphocytes # (Manual) PT INR ABG pH ABG pO2 ABG HCO3 ABG O2 Saturation ABG Base Excess ABG Hemoglobin Oxyhemoglobin Sodium Potassium Chloride 93.4 L Carbon Dioxide 40 H BUN 25 H Creatinine < 0.2 L Glucose 122 H POC Glucose 125 H 128 H Calcium Phosphorus Magnesium Total Creatine Kinase CK-MB (CK-2) Rel Index Troponin T C-Reactive Protein Total Protein Albumin LDL Cholesterol Direct Urine WBC (Auto) 04/21/22 04/22/22 04/22/22 10:31 05:03 05:03 WBC 12.6 H 12.7 H RBC 2.83 L 2.96 L Hgb 8.6 L 9.0 L Hct 26.9 L 28.0 L MCV 95 H 95 H Plt Count Lymph % (Auto) [place] % (Auto) Lymph # (Auto) [place] # (Auto) Seg Neutrophils % Seg Neuts % (Manual) Lymphocytes % (Manual) Seg Neutrophils # Seg Neutrophils # Man Lymphocytes # (Manual) PT INR ABG pH ABG pO2 ABG HCO3 ABG O2 Saturation ABG Base Excess ABG Hemoglobin Oxyhemoglobin Sodium Potassium Chloride 93.9 L Carbon Dioxide 43 H* BUN 23 H Creatinine < 0.2 L Glucose 137 H POC Glucose Calcium Phosphorus Magnesium Total Creatine Kinase CK-MB (CK-2) Rel Index Troponin T C-Reactive Protein Total Protein Albumin LDL Cholesterol Direct Urine WBC (Auto) 04/22/22 04/23/22 04/24/22 08:34 09:40 04:29 WBC 14.4 H RBC 2.74 L Hgb 8.4 L Hct 25.7 L MCV Plt Count Lymph % (Auto) [place] % (Auto) Lymph # (Auto) [place] # (Auto) Seg Neutrophils % Seg Neuts % (Manual) Lymphocytes % (Manual) Seg Neutrophils # Seg Neutrophils # Man Lymphocytes # (Manual) PT INR ABG pH ABG pO2 54.1 L 56.8 L ABG HCO3 48.5 H 49.0 H ABG O2 Saturation 92.1 L 90.9 L ABG Base Excess 20.9 H 20.8 H ABG Hemoglobin 9.0 L 8.4 L Oxyhemoglobin 90.6 L 89.5 L Sodium Potassium Chloride Carbon Dioxide BUN Creatinine Glucose POC Glucose Calcium Phosphorus Magnesium Total Creatine Kinase CK-MB (CK-2) Rel Index Troponin T C-Reactive Protein Total Protein Albumin LDL Cholesterol Direct Urine WBC (Auto) 04/24/22 04/25/22 04/26/22 04:29 09:00 04:22 WBC RBC 2.88 L Hgb 8.9 L Hct 26.8 L MCV Plt Count Lymph % (Auto) [place] % (Auto) Lymph # (Auto) [place] # (Auto) Seg Neutrophils % Seg Neuts % (Manual) Lymphocytes % (Manual) Seg Neutrophils # Seg Neutrophils # Man Lymphocytes # (Manual) PT INR ABG pH 7.457 H ABG pO2 66.7 L ABG HCO3 42.6 H ABG O2 Saturation ABG Base Excess 15.3 H ABG Hemoglobin 8.8 L Oxyhemoglobin 94.1 L Sodium Potassium Chloride 90.7 L Carbon Dioxide 40 H BUN Creatinine < 0.2 L Glucose 133 H POC Glucose Calcium Phosphorus Magnesium Total Creatine Kinase CK-MB (CK-2) Rel Index Troponin T C-Reactive Protein Total Protein Albumin LDL Cholesterol Direct Urine WBC (Auto) 04/26/22 04/29/22 04/29/22 04:22 04:18 04:18 WBC 13.5 H RBC 2.96 L Hgb 8.9 L Hct 27.7 L MCV Plt Count Lymph % (Auto) [place] % (Auto) Lymph # (Auto) [place] # (Auto) Seg Neutrophils % Seg Neuts % (Manual) Lymphocytes % (Manual) Seg Neutrophils # Seg Neutrophils # Man Lymphocytes # (Manual) PT INR ABG pH ABG pO2 ABG HCO3 ABG O2 Saturation ABG Base Excess ABG Hemoglobin Oxyhemoglobin Sodium Potassium Chloride 93.2 L 95.2 L Carbon Dioxide 37 H 38 H BUN Creatinine < 0.2 L < 0.2 L Glucose 114 H 116 H POC Glucose Calcium Phosphorus Magnesium Total Creatine Kinase CK-MB (CK-2) Rel Index Troponin T C-Reactive Protein Total Protein Albumin LDL Cholesterol Direct Urine WBC (Auto) 05/02/22 05/03/22 05/03/22 04:29 04:02 04:02 WBC 12.9 H 12.3 H RBC 2.82 L 2.83 L Hgb 8.4 L 8.4 L Hct 26.2 L 26.0 L MCV Plt Count Lymph % (Auto) [place] % (Auto) Lymph # (Auto) [place] # (Auto) Seg Neutrophils % Seg Neuts % (Manual) Lymphocytes % (Manual) Seg Neutrophils # Seg Neutrophils # Man Lymphocytes # (Manual) PT INR ABG pH ABG pO2 ABG HCO3 ABG O2 Saturation ABG Base Excess ABG Hemoglobin Oxyhemoglobin Sodium 134 L Potassium Chloride 90.5 L Carbon Dioxide 38 H BUN 21 H Creatinine < 0.2 L Glucose 126 H POC Glucose Calcium Phosphorus Magnesium Total Creatine Kinase CK-MB (CK-2) Rel Index Troponin T C-Reactive Protein Total Protein Albumin LDL Cholesterol Direct Urine WBC (Auto) 05/03/22 05/03/22 05/04/22 12:02 17:42 09:36 WBC RBC Hgb Hct MCV Plt Count Lymph % (Auto) [place] % (Auto) Lymph # (Auto) [place] # (Auto) Seg Neutrophils % Seg Neuts % (Manual) Lymphocytes % (Manual) Seg Neutrophils # Seg Neutrophils # Man Lymphocytes # (Manual) PT INR ABG pH ABG pO2 55.4 L ABG HCO3 43.7 H ABG O2 Saturation 87.4 L ABG Base Excess 16.1 H ABG Hemoglobin 9.1 L Oxyhemoglobin 85.7 L Sodium Potassium Chloride Carbon Dioxide BUN Creatinine Glucose POC Glucose 139 H 131 H Calcium Phosphorus Magnesium Total Creatine Kinase CK-MB (CK-2) Rel Index Troponin T C-Reactive Protein Total Protein Albumin LDL Cholesterol Direct Urine WBC (Auto) 05/04/22 05/04/22 05/05/22 17:08 23:10 04:23 WBC 14.4 H RBC 2.75 L Hgb 8.2 L Hct 25.2 L MCV Plt Count Lymph % (Auto) [place] % (Auto) Lymph # (Auto) [place] # (Auto) Seg Neutrophils % Seg Neuts % (Manual) Lymphocytes % (Manual) Seg Neutrophils # Seg Neutrophils # Man Lymphocytes # (Manual) PT INR ABG pH ABG pO2 ABG HCO3 ABG O2 Saturation ABG Base Excess ABG Hemoglobin Oxyhemoglobin Sodium Potassium Chloride Carbon Dioxide BUN Creatinine Glucose POC Glucose 124 H 115 H Calcium Phosphorus Magnesium Total Creatine Kinase CK-MB (CK-2) Rel Index Troponin T C-Reactive Protein Total Protein Albumin LDL Cholesterol Direct Urine WBC (Auto) 05/05/22 05/05/22 05/06/22 04:23 21:39 05:13 WBC RBC Hgb Hct MCV Plt Count Lymph % (Auto) [place] % (Auto) Lymph # (Auto) [place] # (Auto) Seg Neutrophils % Seg Neuts % (Manual) Lymphocytes % (Manual) Seg Neutrophils # Seg Neutrophils # Man Lymphocytes # (Manual) PT INR ABG pH ABG pO2 ABG HCO3 ABG O2 Saturation ABG Base Excess ABG Hemoglobin Oxyhemoglobin Sodium Potassium Chloride 91.3 L Carbon Dioxide 38 H BUN 23 H Creatinine < 0.2 L Glucose 128 H POC Glucose 141 H 136 H Calcium Phosphorus Magnesium Total Creatine Kinase CK-MB (CK-2) Rel Index Troponin T C-Reactive Protein Total Protein Albumin LDL Cholesterol Direct Urine WBC (Auto) 05/07/22 05/07/22 05/08/22 05:29 22:15 05:48 WBC RBC Hgb Hct MCV Plt Count Lymph % (Auto) [place] % (Auto) Lymph # (Auto) [place] # (Auto) Seg Neutrophils % Seg Neuts % (Manual) Lymphocytes % (Manual) Seg Neutrophils # Seg Neutrophils # Man Lymphocytes # (Manual) PT INR ABG pH ABG pO2 ABG HCO3 ABG O2 Saturation ABG Base Excess ABG Hemoglobin Oxyhemoglobin Sodium Potassium Chloride Carbon Dioxide BUN Creatinine Glucose POC Glucose 125 H 142 H 122 H Calcium Phosphorus Magnesium Total Creatine Kinase CK-MB (CK-2) Rel Index Troponin T C-Reactive Protein Total Protein Albumin LDL Cholesterol Direct Urine WBC (Auto) 05/08/22 05/08/22 05/09/22 14:04 21:48 15:15 WBC RBC 2.61 L Hgb 7.7 L Hct 23.2 L MCV Plt Count Lymph % (Auto) 8.1 L [place] % (Auto) Lymph # (Auto) 0.9 L [place] # (Auto) Seg Neutrophils % 86.1 H Seg Neuts % (Manual) Lymphocytes % (Manual) Seg Neutrophils # 9.2 H Seg Neutrophils # Man Lymphocytes # (Manual) PT INR ABG pH ABG pO2 ABG HCO3 ABG O2 Saturation ABG Base Excess ABG Hemoglobin Oxyhemoglobin Sodium Potassium Chloride Carbon Dioxide BUN Creatinine Glucose POC Glucose 112 H 107 H Calcium Phosphorus Magnesium Total Creatine Kinase CK-MB (CK-2) Rel Index Troponin T C-Reactive Protein Total Protein Albumin LDL Cholesterol Direct Urine WBC (Auto) 05/09/22 05/09/22 05/09/22 15:15 15:39 21:15 WBC RBC Hgb Hct MCV Plt Count Lymph % (Auto) [place] % (Auto) Lymph # (Auto) [place] # (Auto) Seg Neutrophils % Seg Neuts % (Manual) Lymphocytes % (Manual) Seg Neutrophils # Seg Neutrophils # Man Lymphocytes # (Manual) PT INR ABG pH ABG pO2 ABG HCO3 ABG O2 Saturation ABG Base Excess ABG Hemoglobin Oxyhemoglobin Sodium Potassium Chloride 92.9 L Carbon Dioxide 40 H BUN Creatinine < 0.2 L Glucose 141 H POC Glucose 118 H 112 H Calcium Phosphorus Magnesium Total Creatine Kinase CK-MB (CK-2) Rel Index Troponin T C-Reactive Protein Total Protein Albumin LDL Cholesterol Direct Urine WBC (Auto) 05/10/22 05/12/22 15:14 00:25 WBC RBC Hgb Hct MCV Plt Count Lymph % (Auto) [place] % (Auto) Lymph # (Auto) [place] # (Auto) Seg Neutrophils % Seg Neuts % (Manual) Lymphocytes % (Manual) Seg Neutrophils # Seg Neutrophils # Man Lymphocytes # (Manual) PT INR ABG pH ABG pO2 ABG HCO3 ABG O2 Saturation ABG Base Excess ABG Hemoglobin Oxyhemoglobin Sodium Potassium Chloride Carbon Dioxide BUN Creatinine Glucose POC Glucose 113 H 158 H Calcium Phosphorus Magnesium Total Creatine Kinase CK-MB (CK-2) Rel Index Troponin T C-Reactive Protein Total Protein Albumin LDL Cholesterol Direct Urine WBC (Auto) Allied health notes reviewed: RT
--- NOTE | 2022-05-12 17:23 | XRay Report ---
CHEST 1 VIEW INDICATION / CLINICAL INFORMATION: Hypoxia STUDY TIME: 1705 COMPARISON: 05/03/2022 FINDINGS: SUPPORT DEVICES: Stable HEART / MEDIASTINUM: Stable LUNGS / PLEURA: Infiltrate in the left mid to lower lung field appears mildly worse. Increasing infil trate is also seen in the right base. No definite pleural effusions. No pneumothorax. ADDITIONAL FINDINGS: No significant additional findings. Signer Name: Shar Coleman MD Signed: 05/12/2022 5:18 PM Workstation Name: [id number]
[2022-05-13] MEDS: METOPROLOL TARTRATE 25 MG TAB FEEDTUBE SCH ×4 (00:43→17:47)
[2022-05-13 04:30] LABS: Hemoglobin 8.7 gm/dl (11.8-15.2); Mean Corpuscular HGB Conc 31 % (32-34); Mean Corpuscular Volume 89 fl (84-94); Platelet Count 418 K/mm3 (140-440); Red Blood Count 3.14 M/mm3 (3.65-5.03); Red Cell Distribution Width 15.2 % (13.2-15.2)
[2022-05-13 04:52] LABS: Blood Urea Nitrogen 23 mg/dL (9-20); Calcium 8.6 mg/dL (8.4-10.2); Hemolysis Index 2
[2022-05-13 05:07] LABS: BUN/Creatinine Ratio 115
[2022-05-13] MEDS: HEPARIN 5,000 UNIT/1 ML VIAL SUB-Q SCH ×4 (06:44→21:48)
[2022-05-13] MEDS: INSULIN LISPRO 100 UNIT/ML SUB-Q SCH ×3 (06:44→21:49)
[2022-05-13] MEDS: ALBUTEROL 2.5 MG/3 ML NEBU IH SCH ×2 (08:43→20:52)
[2022-05-13] MEDS: ACETYLCYSTEINE 20% 200 MG/1 ML *FOR INHALATION USE INHALATION SCH ×3 (08:44→20:53)
--- NOTE | 2022-05-13 09:00 | Progress Note ---
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 target blood glucose 140-180 mg/dL. Avoid hypoglycemia -Continue enteric nutritional support, bowel regimen -VTE prophylaxis- Heparin -Avoid nephrotoxins and renally dose all medications -Stress ulcer prophylaxis- Famotidine -Mobility, frequent turning, off loading per facility protocol to prevent pressure ulcers -Maintain sleep wake cycle, avoid benzodiazepines. -Limit delirium CONDITION:CRITICAL PROGNOSIS: GUARDED CODE STATUS; FULL CODE The high probability of a clinically significant, sudden or life threatening deterioration of the respiratory, cardiovascular, neurology system required my full and direct attention, intervention and personal management. The aggregate critical care time was [33] minutes. 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 Vitals, labs, medications, chart and imaging rev iewed. Discussed with respiratory and nursing care staff. s/p trach and PEG. On home vent Tv 500 and 15L flow Intermittent fevers, no vomiting, no diarrhea Objective Vital Signs - 12hr 05/12/22 05/12/22 05/12/22 22:00 23:00 23:31 Temperature Pulse Rate 112 H 112 H 109 H Respiratory 14 14 Rate Blood Pressure 113/69 101/69 100/64 O2 Sat by Pulse 92 93 Oximetry O2 Sat by Pulse Oximetry [ Assessment] 05/13/22 05/13/22 05/13/22 00:00 01:00 02:00 Temperature 98.6 F Pulse Rate 109 H 115 H 122 H Respiratory 14 14 13 Rate Blood Pressure 98/63 121/68 105/60 O2 Sat by Pulse 93 93 88 Oximetry O2 Sat by Pulse Oximetry [ Assessment] 05/13/22 05/13/22 05/13/22 03:00 03:57 04:00 Temperature 98.2 F Pulse Rate 123 H 120 H 119 H Respiratory 14 14 Rate Blood Pressure 115/70 101/61 101/61 O2 Sat by Pulse 90 92 91 Oximetry O2 Sat by Pulse Oximetry [ Assessment] 05/13/22 05/13/22 05/13/22 04:12 05:00 06:00 Temperature Pulse Rate 116 H 117 H Respiratory 13 15 Rate Blood Pressure 95/64 110/62 O2 Sat by Pulse 91 88 Oximetry O2 Sat by Pulse 90 Oximetry [ Assessment] 05/13/22 05/13/22 07:00 08:00 Temperature 98.4 F Pulse Rate 115 H 110 H Respiratory 14 14 Rate Blood Pressure 108/60 113/65 O2 Sat by Pulse 90 88 Oximetry O2 Sat by Pulse 95 Oximetry [ Assessment] Constitutional: no acute distress, alert, other (resting in bed with mildly increased respiratory effort at rest) Eyes: non-icteric ENT: oropharynx moist, other (+ midline tracheostomy) Neck: supple, no lymphadenopathy, no JVD Effort: mildly labored Ascultation: Bilateral: diminished breath sounds (bases), rhonchi Percussion: Bilateral: not dull Cardiovascular: regular rate and rhythm, other (S1,S2) Gastrointestinal: normoactive bowel sounds, soft, non-tender, non-distended Integumentary: normal, decubitus ulcer Extremities: no cyanosis, no edema, pink and warm, pulses normal Neurologic: pupils equal and round, other (functional quadriplegia) Psychiatric: mood appropriate, affect normal, other CBC and BMP: 05/24/22 04:22 05/24/22 04:22 ABG, PT/INR, D-dimer: ABG ABG pH 7.383 pH Units (7.350-7.450) 05/04/22 09:36 ABG pCO2 75.0 mm Hg 05/04/22 09:36 ABG pO2 55.4 mm Hg (80.0-90.0) L 05/04/22 09:36 ABG O2 Saturation 87.4 % (95.0-99.0) L 05/04/22 09:36 PT/INR, D-dimer PT 13.6 Sec. (12.2-14.9) 04/13/22 04:30 INR 0.94 (0.87-1.13) 04/13/22 04:30 Abnormal lab findings: Abnormal Labs 04/02/22 04/02/22 04/02/22 19:39 19:39 19:39 WBC 14.3 H RBC Hgb Hct MCV 96 H MCHC Plt Count 104 L Lymph % (Auto) [place] % (Auto) Lymph # (Auto) [place] # (Auto) Seg Neutrophils % Seg Neuts % (Manual) 94.0 H Lymphocytes % (Manual) 1.0 L Seg Neutrophils # Seg Neutrophils # Man 13.4 H Lymphocytes # (Manual) 0.1 L PT 15.9 H INR 1.14 H ABG pH ABG pO2 ABG HCO3 ABG O2 Saturation ABG Base Excess ABG Hemoglobin Oxyhemoglobin Sodium 151 H Potassium Chloride Carbon Dioxide BUN Creatinine 0.5 L Glucose POC Glucose Calcium 8.2 L Phosphorus Magnesium 1.60 L Total Creatine Kinase CK-MB (CK-2) Rel Index Troponin T 0.048 H C-Reactive Protein Total Protein 4.6 L Albumin 2.7 L LDL Cholesterol Direct 27 L Urine WBC (Auto) 04/02/22 04/03/22 04/03/22 19:42 05:14 06:30 WBC RBC Hgb Hct MCV MCHC Plt Count Lymph % (Auto) [place] % (Auto) Lymph # (Auto) [place] # (Auto) Seg Neutrophils % Seg Neuts % (Manual) Lymphocytes % (Manual) Seg Neutrophils # Seg Neutrophils # Man Lymphocytes # (Manual) PT INR ABG pH 7.471 H 7.496 H ABG pO2 47.8 L 91.0 H ABG HCO3 30.6 H ABG O2 Saturation 94.4 L ABG Base Excess 6.2 H ABG Hemoglobin 11.0 L 12.8 L Oxyhemoglobin 93.1 L Sodium 149 H Potassium 3.4 L Chloride Carbon Dioxide BUN Creatinine 0.4 L Glucose POC Glucose Calcium Phosphorus Magnesium Total Creatine Kinase CK-MB (CK-2) Rel Index Troponin T C-Reactive Protein Total Protein Albumin LDL Cholesterol Direct Urine WBC (Auto) 04/04/22 04/04/22 04/04/22 04:18 04:18 05:50 WBC 11.8 H RBC Hgb Hct MCV MCHC Plt Count 132 L Lymph % (Auto) [place] % (Auto) Lymph # (Auto) [place] # (Auto) Seg Neutrophils % Seg Neuts % (Manual) Lymphocytes % (Manual) Seg Neutrophils # Seg Neutrophils # Man Lymphocytes # (Manual) PT INR ABG pH 7.517 H ABG pO2 115.5 H ABG HCO3 29.9 H ABG O2 Saturation ABG Base Excess 6.7 H ABG Hemoglobin 12.3 L Oxyhemoglobin Sodium Potassium 3.5 L Chloride Carbon Dioxide 31 H BUN Creatinine 0.3 L Glucose 153 H POC Glucose Calcium Phosphorus 1.40 L Magnesium 1.50 L Total Creatine Kinase CK-MB (CK-2) Rel Index Troponin T C-Reactive Protein 31.60 H Total Protein Albumin LDL Cholesterol Direct Urine WBC (Auto) 04/05/22 04/05/22 04/05/22 02:50 05:25 11:28 WBC RBC Hgb Hct MCV MCHC Plt Count Lymph % (Auto) [place] % (Auto) Lymph # (Auto) [place] # (Auto) Seg Neutrophils % Seg Neuts % (Manual) Lymphocytes % (Manual) Seg Neutrophils # Seg Neutrophils # Man Lymphocytes # (Manual) PT INR ABG pH 7.455 H ABG pO2 50.7 L ABG HCO3 30.5 H ABG O2 Saturation 89.4 L ABG Base Excess 5.9 H ABG Hemoglobin 11.8 L Oxyhemoglobin 88.2 L Sodium Potassium Chloride Carbon Dioxide 32 H BUN Creatinine 0.2 L Glucose 110 H POC Glucose 124 H Calcium 7.9 L Phosphorus Magnesium Total Creatine Kinase CK-MB (CK-2) Rel Index Troponin T C-Reactive Protein Total Protein Albumin LDL Cholesterol Direct Urine WBC (Auto) 04/05/22 04/05/22 04/06/22 17:45 Unknown 04:00 WBC RBC 3.55 L Hgb 11.1 L 11.5 L Hct 33.2 L 35.1 L MCV MCHC Plt Count 113 L 114 L Lymph % (Auto) [place] % (Auto) Lymph # (Auto) [place] # (Auto) Seg Neutrophils % Seg Neuts % (Manual) Lymphocytes % (Manual) Seg Neutrophils # Seg Neutrophils # Man Lymphocytes # (Manual) PT INR ABG pH ABG pO2 ABG HCO3 ABG O2 Saturation ABG Base Excess ABG Hemoglobin Oxyhemoglobin Sodium Potassium Chloride Carbon Dioxide BUN Creatinine Glucose POC Glucose Calcium Phosphorus Magnesium Total Creatine Kinase CK-MB (CK-2) Rel Index Troponin T C-Reactive Protein Total Protein Albumin LDL Cholesterol Direct Urine WBC (Auto) 8.0 H 04/06/22 04/06/22 04/07/22 04:00 08:30 00:04 WBC RBC Hgb Hct MCV MCHC Plt Count Lymph % (Auto) [place] % (Auto) Lymph # (Auto) [place] # (Auto) Seg Neutrophils % Seg Neuts % (Manual) Lymphocytes % (Manual) Seg Neutrophils # Seg Neutrophils # Man Lymphocytes # (Manual) PT INR ABG pH ABG pO2 60.8 L ABG HCO3 30.5 H ABG O2 Saturation 93.3 L ABG Base Excess 4.9 H ABG Hemoglobin 12.4 L Oxyhemoglobin 92.1 L Sodium Potassium 3.0 L Chloride Carbon Dioxide BUN Creatinine < 0.2 L Glucose 130 H POC Glucose 117 H Calcium 8.1 L Phosphorus Magnesium Total Creatine Kinase CK-MB (CK-2) Rel Index Troponin T C-Reactive Protein Total Protein Albumin LDL Cholesterol Direct Urine WBC (Auto) 04/07/22 04/07/22 04/07/22 03:51 03:51 03:51 WBC 14.6 H RBC 3.57 L Hgb 11.1 L Hct 33.2 L MCV MCHC Plt Count 118 L Lymph % (Auto) 4.3 L [place] % (Auto) 8.8 H Lymph # (Auto) 0.6 L [place] # (Auto) 1.3 H Seg Neutrophils % 86.6 H Seg Neuts % (Manual) Lymphocytes % (Manual) Seg Neutrophils # 12.7 H Seg Neutrophils # Man Lymphocytes # (Manual) PT 15.2 H INR ABG pH ABG pO2 ABG HCO3 ABG O2 Saturation ABG Base Excess ABG Hemoglobin Oxyhemoglobin Sodium 133 L Potassium Chloride 96.0 L Carbon Dioxide 31 H BUN Creatinine 0.2 L Glucose 130 H POC Glucose Calcium 8.0 L Phosphorus Magnesium Total Creatine Kinase CK-MB (CK-2) Rel Index Troponin T C-Reactive Protein Total Protein Albumin LDL Cholesterol Direct Urine WBC (Auto) 04/07/22 04/07/22 04/08/22 04:25 09:10 04:49 WBC 16.1 H RBC 3.54 L Hgb 10.9 L Hct 33.3 L MCV MCHC Plt Count Lymph % (Auto) [place] % (Auto) Lymph # (Auto) [place] # (Auto) Seg Neutrophils % Seg Neuts % (Manual) Lymphocytes % (Manual) Seg Neutrophils # Seg Neutrophils # Man Lymphocytes # (Manual) PT INR ABG pH ABG pO2 71.0 L 63.4 L ABG HCO3 31.5 H 40.0 H ABG O2 Saturation 94.9 L ABG Base Excess 5.9 H 13.6 H ABG Hemoglobin 11.3 L 9.0 L Oxyhemoglobin 93.6 L Sodium Potassium Chloride Carbon Dioxide BUN Creatinine Glucose POC Glucose Calcium Phosphorus Magnesium Total Creatine Kinase CK-MB (CK-2) Rel Index Troponin T C-Reactive Protein Total Protein Albumin LDL Cholesterol Direct Urine WBC (Auto) 04/08/22 04/08/22 04/08/22 04:49 09:53 10:25 WBC RBC Hgb Hct MCV MCHC Plt Count Lymph % (Auto) [place] % (Auto) Lymph # (Auto) [place] # (Auto) Seg Neutrophils % Seg Neuts % (Manual) Lymphocytes % (Manual) Seg Neutrophils # Seg Neutrophils # Man Lymphocytes # (Manual) PT INR ABG pH ABG pO2 ABG HCO3 34.7 H ABG O2 Saturation ABG Base Excess 7.9 H ABG Hemoglobin 11.0 L Oxyhemoglobin Sodium 136 L Potassium Chloride 97.7 L Carbon Dioxide 33 H BUN Creatinine 0.2 L Glucose 155 H POC Glucose Calcium Phosphorus Magnesium Total Creatine Kinase CK-MB (CK-2) Rel Index Troponin T 0.030 H C-Reactive Protein Total Protein Albumin LDL Cholesterol Direct Urine WBC (Auto) 04/08/22 04/08/22 04/08/22 11:19 17:47 18:06 WBC RBC Hgb Hct MCV MCHC Plt Count Lymph % (Auto) [place] % (Auto) Lymph # (Auto) [place] # (Auto) Seg Neutrophils % Seg Neuts % (Manual) Lymphocytes % (Manual) Seg Neutrophils # Seg Neutrophils # Man Lymphocytes # (Manual) PT INR ABG pH ABG pO2 ABG HCO3 ABG O2 Saturation ABG Base Excess ABG Hemoglobin Oxyhemoglobin Sodium Potassium Chloride Carbon Dioxide BUN Creatinine Glucose POC Glucose 121 H Calcium Phosphorus Magnesium Total Creatine Kinase 31 L 46 L CK-MB (CK-2) Rel Index 6.4 H 5.6 H Troponin T 0.030 H 0.031 H C-Reactive Protein Total Protein Albumin LDL Cholesterol Direct Urine WBC (Auto) 04/09/22 04/09/22 04/09/22 04:35 04:35 11:24 WBC 11.5 H RBC 3.16 L Hgb 9.9 L Hct 29.4 L MCV MCHC Plt Count 131 L Lymph % (Auto) [place] % (Auto) Lymph # (Auto) [place] # (Auto) Seg Neutrophils % Seg Neuts % (Manual) Lymphocytes % (Manual) Seg Neutrophils # Seg Neutrophils # Man Lymphocytes # (Manual) PT INR ABG pH ABG pO2 ABG HCO3 ABG O2 Saturation ABG Base Excess ABG Hemoglobin Oxyhemoglobin Sodium Potassium Chloride 97.1 L Carbon Dioxide 35 H BUN Creatinine < 0.2 L Glucose 145 H POC Glucose 147 H Calcium Phosphorus Magnesium Total Creatine Kinase CK-MB (CK-2) Rel Index Troponin T C-Reactive Protein Total Protein Albumin LDL Cholesterol Direct Urine WBC (Auto) 04/09/22 04/09/22 04/09/22 13:00 17:32 23:48 WBC RBC Hgb Hct MCV MCHC Plt Count Lymph % (Auto) [place] % (Auto) Lymph # (Auto) [place] # (Auto) Seg Neutrophils % Seg Neuts % (Manual) Lymphocytes % (Manual) Seg Neutrophils # Seg Neutrophils # Man Lymphocytes # (Manual) PT INR ABG pH ABG pO2 66.6 L ABG HCO3 38.2 H ABG O2 Saturation 94.4 L ABG Base Excess 10.7 H ABG Hemoglobin 10.7 L Oxyhemoglobin 92.8 L Sodium Potassium Chloride Carbon Dioxide BUN Creatinine Glucose POC Glucose 143 H 114 H Calcium Phosphorus Magnesium Total Creatine Kinase CK-MB (CK-2) Rel Index Troponin T C-Reactive Protein Total Protein Albumin LDL Cholesterol Direct Urine WBC (Auto) 04/10/22 04/10/22 04/10/22 04:48 04:48 05:34 WBC RBC 2.91 L Hgb 9.1 L Hct 27.7 L MCV 95 H MCHC Plt Count Lymph % (Auto) [place] % (Auto) Lymph # (Auto) [place] # (Auto) Seg Neutrophils % Seg Neuts % (Manual) Lymphocytes % (Manual) Seg Neutrophils # Seg Neutrophils # Man Lymphocytes # (Manual) PT INR ABG pH ABG pO2 ABG HCO3 ABG O2 Saturation ABG Base Excess ABG Hemoglobin Oxyhemoglobin Sodium Potassium Chloride 95.7 L Carbon Dioxide 38 H BUN Creatinine < 0.2 L Glucose 118 H POC Glucose 127 H Calcium Phosphorus Magnesium Total Creatine Kinase CK-MB (CK-2) Rel Index Troponin T C-Reactive Protein Total Protein Albumin LDL Cholesterol Direct Urine WBC (Auto) 04/10/22 04/11/22 04/11/22 23:10 04:15 04:15 WBC 17.2 H RBC 2.98 L Hgb 9.2 L Hct 27.9 L MCV MCHC Plt Count Lymph % (Auto) [place] % (Auto) Lymph # (Auto) [place] # (Auto) Seg Neutrophils % Seg Neuts % (Manual) Lymphocytes % (Manual) Seg Neutrophils # Seg Neutrophils # Man Lymphocytes # (Manual) PT INR ABG pH ABG pO2 ABG HCO3 ABG O2 Saturation ABG Base Excess ABG Hemoglobin Oxyhemoglobin Sodium Potassium Chloride 96.1 L Carbon Dioxide 35 H BUN Creatinine < 0.2 L Glucose 138 H POC Glucose 106 H Calcium 8.3 L Phosphorus Magnesium Total Creatine Kinase CK-MB (CK-2) Rel Index Troponin T C-Reactive Protein Total Protein Albumin LDL Cholesterol Direct Urine WBC (Auto) 04/11/22 04/11/22 04/11/22 05:31 13:18 16:20 WBC RBC Hgb Hct MCV MCHC Plt Count Lymph % (Auto) [place] % (Auto) Lymph # (Auto) [place] # (Auto) Seg Neutrophils % Seg Neuts % (Manual) Lymphocytes % (Manual) Seg Neutrophils # Seg Neutrophils # Man Lymphocytes # (Manual) PT INR ABG pH ABG pO2 57.8 L ABG HCO3 40.5 H ABG O2 Saturation 90.6 L ABG Base Excess 12.6 H ABG Hemoglobin 10.5 L Oxyhemoglobin 89.0 L Sodium Potassium Chloride Carbon Dioxide BUN Creatinine Glucose POC Glucose 129 H 132 H Calcium Phosphorus Magnesium Total Creatine Kinase CK-MB (CK-2) Rel Index Troponin T C-Reactive Protein Total Protein Albumin LDL Cholesterol Direct Urine WBC (Auto) 04/11/22 04/11/22 04/12/22 17:29 23:17 04:00 WBC 17.4 H RBC 2.96 L Hgb 9.0 L Hct 28.0 L MCV 95 H MCHC Plt Count Lymph % (Auto) [place] % (Auto) Lymph # (Auto) [place] # (Auto) Seg Neutrophils % Seg Neuts % (Manual) Lymphocytes % (Manual) Seg Neutrophils # Seg Neutrophils # Man Lymphocytes # (Manual) PT INR ABG pH ABG pO2 ABG HCO3 ABG O2 Saturation ABG Base Excess ABG Hemoglobin Oxyhemoglobin Sodium Potassium Chloride Carbon Dioxide BUN Creatinine Glucose POC Glucose 125 H 151 H Calcium Phosphorus Magnesium Total Creatine Kinase CK-MB (CK-2) Rel Index Troponin T C-Reactive Protein Total Protein Albumin LDL Cholesterol Direct Urine WBC (Auto) 04/12/22 04/12/22 04/12/22 04:00 17:03 23:39 WBC RBC Hgb Hct MCV MCHC Plt Count Lymph % (Auto) [place] % (Auto) Lymph # (Auto) [place] # (Auto) Seg Neutrophils % Seg Neuts % (Manual) Lymphocytes % (Manual) Seg Neutrophils # Seg Neutrophils # Man Lymphocytes # (Manual) PT INR ABG pH ABG pO2 ABG HCO3 ABG O2 Saturation ABG Base Excess ABG Hemoglobin Oxyhemoglobin Sodium Potassium Chloride 97.4 L Carbon Dioxide 37 H BUN Creatinine < 0.2 L Glucose 127 H POC Glucose 106 H 107 H Calcium Phosphorus Magnesium Total Creatine Kinase CK-MB (CK-2) Rel Index Troponin T C-Reactive Protein Total Protein Albumin LDL Cholesterol Direct Urine WBC (Auto) 04/13/22 04/13/22 04/13/22 04:30 04:30 17:39 WBC 14.1 H RBC 2.66 L Hgb 8.4 L Hct 25.5 L MCV 96 H MCHC Plt Count Lymph % (Auto) [place] % (Auto) Lymph # (Auto) [place] # (Auto) Seg Neutrophils % Seg Neuts % (Manual) Lymphocytes % (Manual) Seg Neutrophils # Seg Neutrophils # Man Lymphocytes # (Manual) PT INR ABG pH ABG pO2 ABG HCO3 ABG O2 Saturation ABG Base Excess ABG Hemoglobin Oxyhemoglobin Sodium Potassium Chloride 93.9 L Carbon Dioxide 39 H BUN Creatinine < 0.2 L Glucose POC Glucose 134 H Calcium Phosphorus 1.90 L Magnesium Total Creatine Kinase CK-MB (CK-2) Rel Index Troponin T C-Reactive Protein Total Protein Albumin LDL Cholesterol Direct Urine WBC (Auto) 04/14/22 04/14/22 04/14/22 05:03 05:03 09:10 WBC 15.6 H RBC 3.02 L Hgb 9.3 L Hct 28.8 L MCV 95 H MCHC Plt Count Lymph % (Auto) [place] % (Auto) Lymph # (Auto) [place] # (Auto) Seg Neutrophils % Seg Neuts % (Manual) Lymphocytes % (Manual) Seg Neutrophils # Seg Neutrophils # Man Lymphocytes # (Manual) PT INR ABG pH ABG pO2 66.9 L ABG HCO3 44.5 H ABG O2 Saturation ABG Base Excess 17.2 H ABG Hemoglobin 8.1 L Oxyhemoglobin 94.8 L Sodium Potassium Chloride 93.8 L Carbon Dioxide 42 H* BUN Creatinine < 0.2 L Glucose 117 H POC Glucose Calcium Phosphorus Magnesium Total Creatine Kinase CK-MB (CK-2) Rel Index Troponin T C-Reactive Protein Total Protein Albumin LDL Cholesterol Direct Urine WBC (Auto) 04/15/22 04/15/22 04/16/22 04:44 04:44 04:16 WBC 13.0 H 12.6 H RBC 3.19 L 3.09 L Hgb 9.6 L 9.5 L Hct 30.2 L 29.1 L MCV 95 H MCHC Plt Count 456 H Lymph % (Auto) [place] % (Auto) Lymph # (Auto) [place] # (Auto) Seg Neutrophils % Seg Neuts % (Manual) Lymphocytes % (Manual) Seg Neutrophils # Seg Neutrophils # Man Lymphocytes # (Manual) PT INR ABG pH ABG pO2 ABG HCO3 ABG O2 Saturation ABG Base Excess ABG Hemoglobin Oxyhemoglobin Sodium Potassium Chloride 95.5 L Carbon Dioxide 37 H BUN Creatinine < 0.2 L Glucose POC Glucose Calcium Phosphorus Magnesium Total Creatine Kinase CK-MB (CK-2) Rel Index Troponin T C-Reactive Protein Total Protein Albumin LDL Cholesterol Direct Urine WBC (Auto) 04/16/22 04/16/22 04/16/22 04:16 05:00 14:00 WBC RBC Hgb Hct MCV MCHC Plt Count Lymph % (Auto) [place] % (Auto) Lymph # (Auto) [place] # (Auto) Seg Neutrophils % Seg Neuts % (Manual) Lymphocytes % (Manual) Seg Neutrophils # Seg Neutrophils # Man Lymphocytes # (Manual) PT INR ABG pH 7.324 L ABG pO2 55.6 L ABG HCO3 45.3 H ABG O2 Saturation 87.1 L ABG Base Excess 16.6 H ABG Hemoglobin 8.6 L Oxyhemoglobin 85.7 L Sodium Potassium Chloride 97.6 L Carbon Dioxide 36 H BUN Creatinine < 0.2 L Glucose 109 H POC Glucose 120 H Calcium Phosphorus Magnesium Total Creatine Kinase CK-MB (CK-2) Rel Index Troponin T C-Reactive Protein Total Protein Albumin LDL Cholesterol Direct Urine WBC (Auto) 04/17/22 04/17/22 04/17/22 04:36 04:36 04:57 WBC 14.4 H RBC 3.08 L Hgb 9.4 L Hct 29.0 L MCV MCHC Plt Count Lymph % (Auto) [place] % (Auto) Lymph # (Auto) [place] # (Auto) Seg Neutrophils % Seg Neuts % (Manual) Lymphocytes % (Manual) Seg Neutrophils # Seg Neutrophils # Man Lymphocytes # (Manual) PT INR ABG pH ABG pO2 ABG HCO3 ABG O2 Saturation ABG Base Excess ABG Hemoglobin Oxyhemoglobin Sodium Potassium Chloride 95.9 L Carbon Dioxide 39 H BUN Creatinine < 0.2 L Glucose 140 H POC Glucose 137 H Calcium 8.3 L Phosphorus Magnesium Total Creatine Kinase CK-MB (CK-2) Rel Index Troponin T C-Reactive Protein Total Protein Albumin LDL Cholesterol Direct Urine WBC (Auto) 04/17/22 04/17/22 04/18/22 09:15 18:01 04:20 WBC 11.2 H RBC 3.00 L Hgb 9.3 L Hct 28.6 L MCV 95 H MCHC Plt Count Lymph % (Auto) [place] % (Auto) Lymph # (Auto) [place] # (Auto) Seg Neutrophils % Seg Neuts % (Manual) Lymphocytes % (Manual) Seg Neutrophils # Seg Neutrophils # Man Lymphocytes # (Manual) PT INR ABG pH 7.345 L ABG pO2 ABG HCO3 48.2 H ABG O2 Saturation ABG Base Excess 19.2 H ABG Hemoglobin 9.7 L Oxyhemoglobin Sodium Potassium Chloride Carbon Dioxide BUN Creatinine Glucose POC Glucose 129 H Calcium Phosphorus Magnesium Total Creatine Kinase CK-MB (CK-2) Rel Index Troponin T C-Reactive Protein Total Protein Albumin LDL Cholesterol Direct Urine WBC (Auto) 04/18/22 04/18/22 04/18/22 04:20 17:35 23:50 WBC RBC Hgb Hct MCV MCHC Plt Count Lymph % (Auto) [place] % (Auto) Lymph # (Auto) [place] # (Auto) Seg Neutrophils % Seg Neuts % (Manual) Lymphocytes % (Manual) Seg Neutrophils # Seg Neutrophils # Man Lymphocytes # (Manual) PT INR ABG pH ABG pO2 ABG HCO3 ABG O2 Saturation ABG Base Excess ABG Hemoglobin Oxyhemoglobin Sodium Potassium Chloride 96.8 L Carbon Dioxide 43 H* BUN 22 H Creatinine < 0.2 L Glucose 137 H POC Glucose 128 H 123 H Calcium 8.2 L Phosphorus Magnesium Total Creatine Kinase CK-MB (CK-2) Rel Index Troponin T C-Reactive Protein Total Protein Albumin LDL Cholesterol Direct Urine WBC (Auto) 04/19/22 04/19/22 04/19/22 04:08 04:08 08:50 WBC 16.8 H RBC 3.18 L Hgb 9.8 L Hct 30.1 L MCV 95 H MCHC Plt Count Lymph % (Auto) [place] % (Auto) Lymph # (Auto) [place] # (Auto) Seg Neutrophils % Seg Neuts % (Manual) Lymphocytes % (Manual) Seg Neutrophils # Seg Neutrophils # Man Lymphocytes # (Manual) PT INR ABG pH ABG pO2 56.0 L ABG HCO3 47.1 H ABG O2 Saturation 93.3 L ABG Base Excess 20.1 H ABG Hemoglobin 8.0 L Oxyhemoglobin 91.8 L Sodium Potassium Chloride 96.2 L Carbon Dioxide 40 H BUN 24 H Creatinine < 0.2 L Glucose 125 H POC Glucose Calcium 8.3 L Phosphorus Magnesium Total Creatine Kinase CK-MB (CK-2) Rel Index Troponin T C-Reactive Protein Total Protein Albumin LDL Cholesterol Direct Urine WBC (Auto) 04/19/22 04/20/22 04/20/22 12:02 00:40 04:49 WBC 14.7 H RBC 3.36 L Hgb 10.3 L Hct 32.0 L MCV 95 H MCHC Plt Count Lymph % (Auto) [place] % (Auto) Lymph # (Auto) [place] # (Auto) Seg Neutrophils % Seg Neuts % (Manual) Lymphocytes % (Manual) Seg Neutrophils # Seg Neutrophils # Man Lymphocytes # (Manual) PT INR ABG pH ABG pO2 ABG HCO3 ABG O2 Saturation ABG Base Excess ABG Hemoglobin Oxyhemoglobin Sodium Potassium Chloride Carbon Dioxide BUN Creatinine Glucose POC Glucose 124 H 140 H Calcium Phosphorus Magnesium Total Creatine Kinase CK-MB (CK-2) Rel Index Troponin T C-Reactive Protein Total Protein Albumin LDL Cholesterol Direct Urine WBC (Auto) 04/20/22 04/20/22 04/21/22 05:36 11:40 04:05 WBC RBC Hgb Hct MCV MCHC Plt Count Lymph % (Auto) [place] % (Auto) Lymph # (Auto) [place] # (Auto) Seg Neutrophils % Seg Neuts % (Manual) Lymphocytes % (Manual) Seg Neutrophils # Seg Neutrophils # Man Lymphocytes # (Manual) PT INR ABG pH ABG pO2 ABG HCO3 ABG O2 Saturation ABG Base Excess ABG Hemoglobin Oxyhemoglobin Sodium Potassium Chloride 93.4 L Carbon Dioxide 40 H BUN 25 H Creatinine < 0.2 L Glucose 122 H POC Glucose 125 H 128 H Calcium Phosphorus Magnesium Total Creatine Kinase CK-MB (CK-2) Rel Index Troponin T C-Reactive Protein Total Protein Albumin LDL Cholesterol Direct Urine WBC (Auto) 04/21/22 04/22/22 04/22/22 10:31 05:03 05:03 WBC 12.6 H 12.7 H RBC 2.83 L 2.96 L Hgb 8.6 L 9.0 L Hct 26.9 L 28.0 L MCV 95 H 95 H MCHC Plt Count Lymph % (Auto) [place] % (Auto) Lymph # (Auto) [place] # (Auto) Seg Neutrophils % Seg Neuts % (Manual) Lymphocytes % (Manual) Seg Neutrophils # Seg Neutrophils # Man Lymphocytes # (Manual) PT INR ABG pH ABG pO2 ABG HCO3 ABG O2 Saturation ABG Base Excess ABG Hemoglobin Oxyhemoglobin Sodium Potassium Chloride 93.9 L Carbon Dioxide 43 H* BUN 23 H Creatinine < 0.2 L Glucose 137 H POC Glucose Calcium Phosphorus Magnesium Total Creatine Kinase CK-MB (CK-2) Rel Index Troponin T C-Reactive Protein Total Protein Albumin LDL Cholesterol Direct Urine WBC (Auto) 04/22/22 04/23/22 04/24/22 08:34 09:40 04:29 WBC 14.4 H RBC 2.74 L Hgb 8.4 L Hct 25.7 L MCV MCHC Plt Count Lymph % (Auto) [place] % (Auto) Lymph # (Auto) [place] # (Auto) Seg Neutrophils % Seg Neuts % (Manual) Lymphocytes % (Manual) Seg Neutrophils # Seg Neutrophils # Man Lymphocytes # (Manual) PT INR ABG pH ABG pO2 54.1 L 56.8 L ABG HCO3 48.5 H 49.0 H ABG O2 Saturation 92.1 L 90.9 L ABG Base Excess 20.9 H 20.8 H ABG Hemoglobin 9.0 L 8.4 L Oxyhemoglobin 90.6 L 89.5 L Sodium Potassium Chloride Carbon Dioxide BUN Creatinine Glucose POC Glucose Calcium Phosphorus Magnesium Total Creatine Kinase CK-MB (CK-2) Rel Index Troponin T C-Reactive Protein Total Protein Albumin LDL Cholesterol Direct Urine WBC (Auto) 04/24/22 04/25/22 04/26/22 04:29 09:00 04:22 WBC RBC 2.88 L Hgb 8.9 L Hct 26.8 L MCV MCHC Plt Count Lymph % (Auto) [place] % (Auto) Lymph # (Auto) [place] # (Auto) Seg Neutrophils % Seg Neuts % (Manual) Lymphocytes % (Manual) Seg Neutrophils # Seg Neutrophils # Man Lymphocytes # (Manual) PT INR ABG pH 7.457 H ABG pO2 66.7 L ABG HCO3 42.6 H ABG O2 Saturation ABG Base Excess 15.3 H ABG Hemoglobin 8.8 L Oxyhemoglobin 94.1 L Sodium Potassium Chloride 90.7 L Carbon Dioxide 40 H BUN Creatinine < 0.2 L Glucose 133 H POC Glucose Calcium Phosphorus Magnesium Total Creatine Kinase CK-MB (CK-2) Rel Index Troponin T C-Reactive Protein Total Protein Albumin LDL Cholesterol Direct Urine WBC (Auto) 04/26/22 04/29/22 04/29/22 04:22 04:18 04:18 WBC 13.5 H RBC 2.96 L Hgb 8.9 L Hct 27.7 L MCV MCHC Plt Count Lymph % (Auto) [place] % (Auto) Lymph # (Auto) [place] # (Auto) Seg Neutrophils % Seg Neuts % (Manual) Lymphocytes % (Manual) Seg Neutrophils # Seg Neutrophils # Man Lymphocytes # (Manual) PT INR ABG pH ABG pO2 ABG HCO3 ABG O2 Saturation ABG Base Excess ABG Hemoglobin Oxyhemoglobin Sodium Potassium Chloride 93.2 L 95.2 L Carbon Dioxide 37 H 38 H BUN Creatinine < 0.2 L < 0.2 L Glucose 114 H 116 H POC Glucose Calcium Phosphorus Magnesium Total Creatine Kinase CK-MB (CK-2) Rel Index Troponin T C-Reactive Protein Total Protein Albumin LDL Cholesterol Direct Urine WBC (Auto) 05/02/22 05/03/22 05/03/22 04:29 04:02 04:02 WBC 12.9 H 12.3 H RBC 2.82 L 2.83 L Hgb 8.4 L 8.4 L Hct 26.2 L 26.0 L MCV MCHC Plt Count Lymph % (Auto) [place] % (Auto) Lymph # (Auto) [place] # (Auto) Seg Neutrophils % Seg Neuts % (Manual) Lymphocytes % (Manual) Seg Neutrophils # Seg Neutrophils # Man Lymphocytes # (Manual) PT INR ABG pH ABG pO2 ABG HCO3 ABG O2 Saturation ABG Base Excess ABG Hemoglobin Oxyhemoglobin Sodium 134 L Potassium Chloride 90.5 L Carbon Dioxide 38 H BUN 21 H Creatinine < 0.2 L Glucose 126 H POC Glucose Calcium Phosphorus Magnesium Total Creatine Kinase CK-MB (CK-2) Rel Index Troponin T C-Reactive Protein Total Protein Albumin LDL Cholesterol Direct Urine WBC (Auto) 05/03/22 05/03/22 05/04/22 12:02 17:42 09:36 WBC RBC Hgb Hct MCV MCHC Plt Count Lymph % (Auto) [place] % (Auto) Lymph # (Auto) [place] # (Auto) Seg Neutrophils % Seg Neuts % (Manual) Lymphocytes % (Manual) Seg Neutrophils # Seg Neutrophils # Man Lymphocytes # (Manual) PT INR ABG pH ABG pO2 55.4 L ABG HCO3 43.7 H ABG O2 Saturation 87.4 L ABG Base Excess 16.1 H ABG Hemoglobin 9.1 L Oxyhemoglobin 85.7 L Sodium Potassium Chloride Carbon Dioxide BUN Creatinine Glucose POC Glucose 139 H 131 H Calcium Phosphorus Magnesium Total Creatine Kinase CK-MB (CK-2) Rel Index Troponin T C-Reactive Protein Total Protein Albumin LDL Cholesterol Direct Urine WBC (Auto) 05/04/22 05/04/22 05/05/22 17:08 23:10 04:23 WBC 14.4 H RBC 2.75 L Hgb 8.2 L Hct 25.2 L MCV MCHC Plt Count Lymph % (Auto) [place] % (Auto) Lymph # (Auto) [place] # (Auto) Seg Neutrophils % Seg Neuts % (Manual) Lymphocytes % (Manual) Seg Neutrophils # Seg Neutrophils # Man Lymphocytes # (Manual) PT INR ABG pH ABG pO2 ABG HCO3 ABG O2 Saturation ABG Base Excess ABG Hemoglobin Oxyhemoglobin Sodium Potassium Chloride Carbon Dioxide BUN Creatinine Glucose POC Glucose 124 H 115 H Calcium Phosphorus Magnesium Total Creatine Kinase CK-MB (CK-2) Rel Index Troponin T C-Reactive Protein Total Protein Albumin LDL Cholesterol Direct Urine WBC (Auto) 05/05/22 05/05/22 05/06/22 04:23 21:39 05:13 WBC RBC Hgb Hct MCV MCHC Plt Count Lymph % (Auto) [place] % (Auto) Lymph # (Auto) [place] # (Auto) Seg Neutrophils % Seg Neuts % (Manual) Lymphocytes % (Manual) Seg Neutrophils # Seg Neutrophils # Man Lymphocytes # (Manual) PT INR ABG pH ABG pO2 ABG HCO3 ABG O2 Saturation ABG Base Excess ABG Hemoglobin Oxyhemoglobin Sodium Potassium Chloride 91.3 L Carbon Dioxide 38 H BUN 23 H Creatinine < 0.2 L Glucose 128 H POC Glucose 141 H 136 H Calcium Phosphorus Magnesium Total Creatine Kinase CK-MB (CK-2) Rel Index Troponin T C-Reactive Protein Total Protein Albumin LDL Cholesterol Direct Urine WBC (Auto) 05/07/22 05/07/22 05/08/22 05:29 22:15 05:48 WBC RBC Hgb Hct MCV MCHC Plt Count Lymph % (Auto) [place] % (Auto) Lymph # (Auto) [place] # (Auto) Seg Neutrophils % Seg Neuts % (Manual) Lymphocytes % (Manual) Seg Neutrophils # Seg Neutrophils # Man Lymphocytes # (Manual) PT INR ABG pH ABG pO2 ABG HCO3 ABG O2 Saturation ABG Base Excess ABG Hemoglobin Oxyhemoglobin Sodium Potassium Chloride Carbon Dioxide BUN Creatinine Glucose POC Glucose 125 H 142 H 122 H Calcium Phosphorus Magnesium Total Creatine Kinase CK-MB (CK-2) Rel Index Troponin T C-Reactive Protein Total Protein Albumin LDL Cholesterol Direct Urine WBC (Auto) 05/08/22 05/08/22 05/09/22 14:04 21:48 15:15 WBC RBC 2.61 L Hgb 7.7 L Hct 23.2 L MCV MCHC Plt Count Lymph % (Auto) 8.1 L [place] % (Auto) Lymph # (Auto) 0.9 L [place] # (Auto) Seg Neutrophils % 86.1 H Seg Neuts % (Manual) Lymphocytes % (Manual) Seg Neutrophils # 9.2 H Seg Neutrophils # Man Lymphocytes # (Manual) PT INR ABG pH ABG pO2 ABG HCO3 ABG O2 Saturation ABG Base Excess ABG Hemoglobin Oxyhemoglobin Sodium Potassium Chloride Carbon Dioxide BUN Creatinine Glucose POC Glucose 112 H 107 H Calcium Phosphorus Magnesium Total Creatine Kinase CK-MB (CK-2) Rel Index Troponin T C-Reactive Protein Total Protein Albumin LDL Cholesterol Direct Urine WBC (Auto) 07/01/2605/09/22 05/09/22 15:15 15:39 21:15 WBC RBC Hgb Hct MCV MCHC Plt Count Lymph % (Auto) [place] % (Auto) Lymph # (Auto) [place] # (Auto) Seg Neutrophils % Seg Neuts % (Manual) Lymphocytes % (Manual) Seg Neutrophils # Seg Neutrophils # Man Lymphocytes # (Manual) PT INR ABG pH ABG pO2 ABG HCO3 ABG O2 Saturation ABG Base Excess ABG Hemoglobin Oxyhemoglobin Sodium Potassium Chloride 92.9 L Carbon Dioxide 40 H BUN Creatinine < 0.2 L Glucose 141 H POC Glucose 118 H 112 H Calcium Phosphorus Magnesium Total Creatine Kinase CK-MB (CK-2) Rel Index Troponin T C-Reactive Protein Total Protein Albumin LDL Cholesterol Direct Urine WBC (Auto) 05/10/22 05/12/22 05/13/22 15:14 00:25 04:02 WBC 13.3 H RBC 3.14 L Hgb 8.7 L Hct 28.0 L MCV MCHC 31 L Plt Count Lymph % (Auto) [place] % (Auto) Lymph # (Auto) [place] # (Auto) Seg Neutrophils % Seg Neuts % (Manual) Lymphocytes % (Manual) Seg Neutrophils # Seg Neutrophils # Man Lymphocytes # (Manual) PT INR ABG pH ABG pO2 ABG HCO3 ABG O2 Saturation ABG Base Excess ABG Hemoglobin Oxyhemoglobin Sodium Potassium Chloride Carbon Dioxide BUN Creatinine Glucose POC Glucose 113 H 158 H Calcium Phosphorus Magnesium Total Creatine Kinase CK-MB (CK-2) Rel Index Troponin T C-Reactive Protein Total Protein Albumin LDL Cholesterol Direct Urine WBC (Auto) 05/13/22 05/13/22 04:02 06:32 WBC RBC Hgb Hct MCV MCHC Plt Count Lymph % (Auto) [place] % (Auto) Lymph # (Auto) [place] # (Auto) Seg Neutrophils % Seg Neuts % (Manual) Lymphocytes % (Manual) Seg Neutrophils # Seg Neutrophils # Man Lymphocytes # (Manual) PT INR ABG pH ABG pO2 ABG HCO3 ABG O2 Saturation ABG Base Excess ABG Hemoglobin Oxyhemoglobin Sodium 135 L Potassium Chloride 91.1 L Carbon Dioxide 40 H BUN 23 H Creatinine < 0.2 L Glucose 139 H POC Glucose 129 H Calcium Phosphorus Magnesium Total Creatine Kinase CK-MB (CK-2) Rel Index Troponin T C-Reactive Protein Total Protein Albumin LDL Cholesterol Direct Urine WBC (Auto) Allied health notes reviewed: RT
--- NOTE | 2022-05-13 10:48 | Progress Note ---
<ALEK SMITH - Last Filed: 05/13/22 17:11> Assessment and Plan Assessment and plan: This is a 57-year-old male with known history of ALS, recently hospitalized at [facility] admitted for acute hypoxemic respiratory failure 2/2 pneumonia Hospital Course to Date: 04/03: Intubated and Sedated on versed gtt, RASS-5. CT head/brain noted with no acute intracranial abnormality. Plan to initiated precededx gtt and wean off versed for a RASS goal of 0 to -2. CT chect also reviewed, findings are most consistent with acute bronchopneumonia. Continue empiric IV Abx, vent adjustment per CCM. ID consulted. Continue to F/U on cultures. Titrate pressor for MAP above 65. Medical records requested from [facility]. 04/04: Remains stable on the vent, easily arousable on precedex gtt, not following commands. Plan for SAT/SBT today. PRN analgesia for CPOT greater than 3. Fevers improved, cultures and procal pending. Continue current IV abx, ID also consulted. Remains on low dose pressors, titrate pressors for a MAP above 65. 04/05: Long discussion with family with use of translation phone with CCM regarding goals of care. Family to have meeting amongst themselves and informed care team of decisions. Fentanyl drip added for respiratory distress. Remains on Precedex drip. Antibiotics per ID. Given 2L NS bolus with levophed gtt 04/06: Family discussion with Dr. Grayson for goals of care. CXR shows possible mucus plug, continue CPT as FiO2 is being able to be weaned. Potassium repleted. Weaning fentnyl gtt. 04/07: Ultrasound guided thoracentesis today scheduled, inadequate amount of pleural effusion on so not completed. Patient was started on Levophed overnight which was weaned off this morning however had to be started twice a day. Remains on fentanyl and Precedex. Cardiology discontinued BB and ACEi in setting of hypotension. 04/08: COVID-19 PCR negative. Routine EEG ordered by cardiology which showed ST changes, cardiology aware. They will continue conservative treatment. Repeat troponins 0.030 which are less than admit of 0.048. Dr. Grayson had a long discu ssion with with the use of japanese interpreter today at bedside and has not made a decision regarding goals of care. Possible consult to surgery for trach/PEG early next week. Continues to require Precedex and fentanyl drip for sedation. Carvedilol/lisinopril discontinued as patient is continuously on Levophed. 04/09: No acute events reported overnight, remains on fentanyl, Precedex and Levophed drips. Dr. Grayson and Dr. Pineda updated family at bedside extensively today. Consulted surgery for trach/PEG. COVID-19 PCR negative. 04/10: Patient noted to have desaturation episodes, FiO2 increased slightly to 35%. Will add Mucomyst. Remains on fentanyl and Precedex. Off of Levophed. Surgery consulted for trach/PEG. 04/11: FiO2 increased over night likely related to hypoxia, continues on fent gtt, weaning precedex gtt as he is also on Seroquel. Will d/w CCM re scheduled or prn oxycodone 04/12: Periods of hypoxia and tachycardia this am. Symptoms improved post deep suction and tracheal lavage, Repeat CXR noted with no significant change. Continue CPT and mucomyst. Plan for possible trach/PEG tomorrow by general surgery. 04/13: Remains stable on the vent. Patient is wake and tracking but does not follow simple commands. No report of hypoxia from overnight, continue CPT and mucomyst. Plan for track and PEG today by General Surgery. Plan for LTAC placement post procedure, case management to arrange. 04/14: VIRGILIO overnight, Trach and PEG postponed for today by general surgery. Plan for LTAC placement post procedure, case management to arrange. 04/15: S/p Trach and PEG. Up to 80% FiO2 this am, this am CXR noted suggesting possible mucus plug. D/W [facility] plan for bronch today. Continue CPT and mucomyst. Plan of care thoroughly discussed with patient's and son (who translated for ) at the bedside. Per , client care manager had already discussed the risks and benefits of the procedure yesterday. She verbalized understanding and agreed with procedure and current care plan, consent signed. Okay to use PEG-tube for meds this am, resume TF once okay by general Surgery. Case management to arrange LTAC placement. 04/16: s/p Bronchocopy by [facility]. FiO2 down to 60%, angela 10 this am. This am CXR with moderate improvement. Continue CPT and mucomyst, wean Fio2 as tolerated for SPO2 above 92%. Patient is tolerating TF, advance to goal as ordered. Possible LTAC placement, case management to arrange. 04/17: VIRGILIO overnight. remains stable on the vent, recent CXR and this am ABG n oted. Continue CPT and mucomyst, wean Fio2 as tolerated. 04/18: Remains stable on the vent, Fio2 down to 55% and peep of 8 this am. Continue to wean as tolerated, CPT, and mucomyst. Dsiposition- LTAC placement, case management to arrange. 04/19: No acute events overnight. Continue current management. 04/20: No acute events overnight, continue current management 04/21: Patient had chest ultrasound which showed trace pleural effusions, chest x-ray improved after the addition of Mucomyst yesterday. FiO2 55-65%. No acute events overnight. more interactive today. 04/22: Seroquel changed to BID, FiO2 was increased to 60%. RT increased FIO2 to 100 d/t desaturation into the 80s but was able to wean down. CCM increased PEEP and decreased FiO2. 04/23: CCM increase PEEP, no acute events reported overnight. 04/24: Spoke to RT about decreasing FiO2 as tolerated. No acute events reported overnight. Continue supportive management. 04/25: Weaning as tolerated. no acute events overnight. RT to attempt CPAP again today 04/26: VIRGILIO overnight. Patient failed PSV trial again this morning. Continue s upportive management and daily PST trial. 04/27: Patient failed PSV trial again this am due to episodes of apnea. Continue daily PSV trial as tolerated. Case management to arrange LTAC placement 04/28: Remains stable. Continue daily PSV trial as tolerated. Awaiting approval for LTAC 04/29: VIRGILIO overnight. Continue daily PSV trial. Awaiting approval for LTAC, case management to arrange. 04/30: Patient continue to fail PSV trial. Per case management patient was denied for LTAC, now possible SNF placement. Case managemen to arrange. Continue supportive measures and daily PSV trial as tolerated. 05/01: VIRGILIO overnight. Continue supportive measures and daily PSV trial as tolerated. Possible SNF placement. 05/02: Continue supportive measures and daily PSV trial as tolerated. Possible SNF placement, case management to arrange 05/03: no acute events overnight, CM arranging home vent setup. Family declined SNF. 05/04: RN/RT reports thin secretions, increase in FiO2 for decreased oxygen on ABG. No acute events overnight. 05/05: Family scheduled for teaching session today at 2pm. Increase in FiO2 overnight to 45%. Awaiting vent setup for home care for ventilation secondary to tracheostomy. 05/06: No acute events reported overnight, T-max 100.9. FiO2 45%. Awaiting discharge home with vent when teaching is completed 05/07: No acute events reported overnight, Awaiting discharge home with vent when teaching is completed 05/08: No acute events reported overnight, Awaiting discharge home with vent when teaching is completed 05/09: no acute events reported overnight. Ordered routine labs today. Family continuing with vent training. Anticipate discharge home this week possibly on Tuesday. 05/10: VIRGILIO overnight. Continue current supportive measures and family training at the bedside. Plan for discharge home tomorrow. 05/11: Discharge home today. hair and makeup designer at 12pm 05/12: Discharge cancelled yesterday. Patient desated on home vent at max setting. Home vent is not sufficient to support patient's ventilation need. D/w [facility], Dr. Valdivia, who recommend SNF placement at this time. Patient's family notified at the bedside. All questions and concerns were address at this time. Further discussion on alternative placement to be determine and discussed with patient's family and case management today. The respiratory therapist from [employer] is schedule to come at 1400 today for further assessment. 05/13: Tolerating home vent this amd. Recent CXR reviewed with no significant change. Patient's home vent settings were adjusted by [facility]. [employer] respiratory therapist to come again today to make further adjusted to home vent. Plan is to optimize patient's on home vent for possible discharge home. Assessment and Plan #Acute Hypoxemic Respiratory Failure 2/2 #Acute Bronchopneumonia - Intubated in the ED on 04/02 for hypoxemia and airway protection - 04/14 s/p Trach and PEG - 04/15 CXR reviewed complete opacity of the righ side suggesting possible mucus plug. See report for detail - 04/15 s/p Bronchoscopy by [facility] - Tolerating home vent this am, SPO2 at 95% - [facility] consulted, appreciate recommendations - Multiple failed vent wean - Continue CPT and mucomyst per [facility] - VAP bundle addressed - Aspiration precaution HOB above 30 - PRN ABG and CXR per CCM - Continue SPO2 monitoring for SPO2 goal above 92% #Sepsis #Acute Bronchopneumonia #HCAP #Leukocytosis - CXR shows moderate to large layering effusion on the right, see report for full detail - CT chest also reviewed, findings are most consistent with acute bronchopneumonia. See report for full detail - Patient was recent hospitalized for pneumonia - Patient remains afebrile - Tracheal aspirate with Pseudomonas aeruginosa, Enterobacter aerogenes - 04/02 blood culture with bacillus species, 04/05 blood culture NGTD - Patient completed [id number] of Cefepine - CRP 31.6, procalcitonin 0.08 - MRSA negative - Daily CBC monitor - ID signed off #Suspect ischemic coronary artery disease #h/o cardiomyopathy - Low BP probably due to hypovolemia vs sedation vs infectious process - s/p Levophed gtt - Elevated troponin possibly a type II troponin leak - Cardiology consulted, appreciated recommendations - Echocardiogram shows ejection fraction of 40 to 45%, mild global hypokinesis of left ventricle - Continue BB - Continue blood pressure monitor per protocol - Maintain MAP above 65 - On heparin SubQ #H/o Amyotrophic Lateral Sclerosis #Acute Metabolic Encephalopathy-resolved #Nonverbal at Baseline - Presented with AMS, per family patient is nonverbal at baseline but responsive - CT head/Brain with no acute intracranial process - Off sedation. Awake and calm - Continue Seroquel per [facility] - Avoid benzodiazepine to reduce the possibility of delirium - PRN analgesia for CPOT greater than 3 - Maintenance of sleep-wake cycle #Thrombocytopenia-resolved - Continue to trend plt - On heparin subQ - Monitor for s/s of any active bleeding #Hypernatremia-resolved - Monitor and replace electrolytes as needed - Continue to trend BMP #Protein Caloric Malnutrition - Albumin 2.7, Total protein 4.6 - 04/15 s/p EPG-Tube placement - Continue enteral nutrition - Nutrition consulted #Constipation - Noted on CXR and KUB - Continue BR #GI/DVT Prophylaxis - PPI- Pepcid - Heparin SubQ - SCDs to bilateral lower extremities while in bed #Advance Care Planning - Disease education data, care plan, diagnoses, and prognosis were discussed patient's , Carly Lopez, and patient daughter, Kaylee Warren, who translated for #[phone]. They reported that patient was following at [place] for his ALS and during recent hospitalization at [facility] they were told nothing else can be offered to patient at this time and patient was discharge home with home hospice and PO morphine. First hospice visit was on , however, patient became unresponsive yesterday and they brought in to the hospital. - Goal of care and code status were also addressed at that time. Family wants to wait for a couple days to see how patient respond to current treatment before making a decision. All questions and concerns were addressed at this time. Patie nt family acknowledged understanding and agreement with care plan. - Patient remains a FULL CODE status -04/05: Discussion at bedside with interpreting service with Dr. Valdivia and family state they would discuss next steps amongst themselves and let healthcare team know of decisions -04/06: extensive discussion with family ( and son) with Dr. Grayson regarding goals of care -04/08: Extensive discussion with with the use of japanese interpreter line regarding goals of care; no decision made. Possible consult to surgery for trach/PEG early next week. -04/09: Discussion with and her sister with Dr. Grayson and then with Dr. Pineda-> Consulted surgery for trach/peg -04/30 Insurance Denied LTAC, plan for possible SNF placemenet now. Case management to arrange -05/12: Discharge cancelled yesterday. Patient desated on home vent at max setting. Home vent is not sufficient to support patient's ventilation need. -05/13: Adjustement made to home vent. Plan to optimize patient for possible discharge home. The high probability of a clinically significant, sudden or life threatening deterioration of the [multiple] system(s) required my full and direct attention, intervention and personal management. The aggregate critical care time was [60] minutes. This time is in addition to time spent performing reported procedures but includes the following: [x] Data Review and interpretation [x] Patient assessment and monitoring of vital signs [x] Documentation [x] Medication orders and management Disposition Plan: ICU Total Time Spent with Patient (Minutes): 60 History Interval history: Patient seen and examined at the bedside. Remains stable, tolerating home vent this am, VSSJose Manuel POOLE overnight Hospitalist Physical - Physical exam Narrative exam: General appearance: Present: no acute distress, cachectic, other (Trach and on the vent.Awake and tracking, following simple commands) - EENT Eyes: Present: PERRL - Neck Neck: Present: normal ROM - Respiratory Respiratory effort: normal Respiratory: bilateral: rhonchi - Cardiovascular Rhythm: regular Heart Sounds: Present: S1 & S2 - Extremities Extremities: no ischemia, pulses intact, pulses symmetrical Peripheral Pulses: within normal limits - Abdominal General gastrointestinal: soft, non-distended, normal bowel sounds - Integumentary Integumentary: Present: warm, dry - Psychiatric Psychiatric: other (Trach and on the vent. Awake and tracking, following simple commands) - Neurologic Neurologic: other (Trach and on the vent. Awake and tracking, following simple commands) - Allied Health Allied health notes reviewed: nursing, case management - Constitutional Vitals: Temp Pulse Resp BP Pulse Ox 98.4 F 118 H 14 119/68 92 05/13/22 08:00 05/13/22 09:00 05/13/22 09:00 05/13/22 09:00 05/13/22 09:00 HEART Score - HEART Score Troponin: Troponin T 0.031 ng/mL (0.00-0.029) H 04/08/22 17:47 Results - Labs CBC & Chem 7: 05/13/22 04:02 05/13/22 04:02 Labs: Laboratory Last Values WBC 13.3 K/mm3 (4.5-11.0) H 05/13/22 04:02 RBC 3.14 M/mm3 (3.65-5.03) L 05/13/22 04:02 Hgb 8.7 gm/dl (11.8-15.2) L 05/13/22 04:02 Hct 28.0 % (35.5-45.6) L 05/13/22 04:02 MCV 89 fl (84-94) 05/13/22 04:02 MCH 28 pg (28-32) 05/13/22 04:02 MCHC 31 % (32-34) L 05/13/22 04:02 RDW 15.2 % (13.2-15.2) 05/13/22 04:02 Plt Count 418 K/mm3 (140-440) 05/13/22 04:02 Lymph % (Auto) 8.1 % (13.4-35.0) L 05/09/22 15:15 [place] % (Auto) 4.9 % (0.0-7.3) 05/09/22 15:15 Eos % (Auto) 0.6 % (0.0-4.3) 05/09/22 15:15 Baso % (Auto) 0.3 % (0.0-1.8) 05/09/22 15:15 Lymph # (Auto) 0.9 K/mm3 (1.2-5.4) L 05/09/22 15:15 [place] # (Auto) 0.5 K/mm3 (0.0-0.8) 05/09/22 15:15 Eos # (Auto) 0.1 K/mm3 (0.0-0.4) 05/09/22 15:15 Baso # (Auto) 0.0 K/mm3 (0.0-0.1) 05/09/22 15:15 Add Manual Diff Complete 04/02/22 19:39 Total Counted 100 04/02/22 19:39 Seg Neutrophils % 86.1 % (40.0-70.0) H 05/09/22 15:15 Seg Neuts % (Manual) 94.0 % (40.0-70.0) H 04/02/22 19:39 Band Neutrophils % 0 % 04/02/22 19:39 Lymphocytes % (Manual) 1.0 % (13.4-35.0) L 04/02/22 19:39 Reactive Lymphs % (Man) 0 % 04/02/22 19:39 Monocytes % (Manual) 5.0 % (0.0-7.3) 04/02/22 19:39 Eosinophils % (Manual) 0 % (0.0-4.3) 04/02/22 19:39 Basophils % (Manual) 0 % (0.0-1.8) 04/02/22 19:39 Metamyelocytes % 0 % 04/02/22 19:39 Myelocytes % 0 % 04/02/22 19:39 Promyelocytes % 0 % 04/02/22 19:39 Blast Cells % 0 % 04/02/22 19:39 Nucleated RBC % Not Reportable 04/02/22 19:39 Seg Neutrophils # 9.2 K/mm3 (1.8-7.7) H 05/09/22 15:15 Seg Neutrophils # Man 13.4 K/mm3 (1.8-7.7) H 04/02/22 19:39 Band Neutrophils # 0.0 K/mm3 04/02/22 19:39 Lymphocytes # (Manual) 0.1 K/mm3 (1.2-5.4) L 04/02/22 19:39 Abs React Lymphs (Man) 0.0 K/mm3 04/02/22 19:39 Monocytes # (Manual) 0.7 K/mm3 (0.0-0.8) 04/02/22 19:39 Eosinophils # (Manual) 0.0 K/mm3 (0.0-0.4) 04/02/22 19:39 Basophils # (Manual) 0.0 K/mm3 (0.0-0.1) 04/02/22 19:39 Metamyelocytes # 0.0 K/mm3 04/02/22 19:39 Myelocytes # 0.0 K/mm3 04/02/22 19:39 Promyelocytes # 0.0 K/mm3 04/02/22 19:39 Blast Cells # 0.0 K/mm3 04/02/22 19:39 WBC Morphology Not Reportable 04/02/22 19:39 Hypersegmented Neuts Not Reportable 04/02/22 19:39 Hyposegmented Neuts Not Reportable 04/02/22 19:39 Hypogranular Neuts Not Reportable 04/02/22 19:39 Smudge Cells Not Reportable 04/02/22 19:39 Toxic Granulation Not Reportable 04/02/22 19:39 Toxic Vacuolation Not Reportable 04/02/22 19:39 Dohle Bodies Not Reportable 04/02/22 19:39 Pelger-Huet Anomaly Not Reportable 04/02/22 19:39 Terry Rods Not Reportable 04/02/22 19:39 Platelet Estimate Consistent w auto 04/02/22 19:39 Clumped Platelets Not Reportable 04/02/22 19:39 Plt Clumps, EDTA Not Reportable 04/02/22 19:39 Large Platelets Not Reportable 04/02/22 19:39 Giant Platelets Not Reportable 04/02/22 19:39 Platelet Satelliting Not Reportable 04/02/22 19:39 Plt Morphology Comment Not Reportable 04/02/22 19:39 RBC Morphology Not Reportable 04/02/22 19:39 Dimorphic RBCs Not Reportable 04/02/22 19:39 Polychromasia Not Reportable 04/02/22 19:39 Hypochromasia Not Reportable 04/02/22 19:39 Poikilocytosis Not Reportable 04/02/22 19:39 Anisocytosis 1+ 04/02/22 19:39 Microcytosis Not Reportable 04/02/22 19:39 Macrocytosis Not Reportable 04/02/22 19:39 Spherocytes Not Reportable 04/02/22 19:39 Pappenheimer Bodies Not Reportable 04/02/22 19:39 Sickle Cells Not Reportable 04/02/22 19:39 Target Cells Not Reportable 04/02/22 19:39 Tear Drop Cells Not Reportable 04/02/22 19:39 Ovalocytes Not Reportable 04/02/22 19:39 Helmet Cells Not Reportable 04/02/22 19:39 [place] Bodies Not Reportable 04/02/22 19:39 [place] Rings Not Reportable 04/02/22 19:39 [place] Cells Not Reportable 04/02/22 19:39 Bite Cells Not Reportable 04/02/22 19:39 Crenated Cell Not Reportable 04/02/22 19:39 Elliptocytes Not Reportable 04/02/22 19:39 Acanthocytes (Spur) Not Reportable 04/02/22 19:39 Rouleaux Not Reportable 04/02/22 19:39 Hemoglobin C Crystals Not Reportable 04/02/22 19:39 Schistocytes Not Reportable 04/02/22 19:39 Malaria parasites Not Reportable 04/02/22 19:39 [place] Bodies Not Reportable 04/02/22 19:39 Hem Pathologist Commnt No 04/02/22 19:39 PT 13.6 Sec. (12.2-14.9) 04/13/22 04:30 INR 0.94 (0.87-1.13) 04/13/22 04:30 APTT 35.7 Sec. (24.2-36.6) 04/07/22 03:51 ABG pH 7.383 pH Units (7.350-7.450) 05/04/22 09:36 ABG pCO2 75.0 mm Hg 05/04/22 09:36 ABG pO2 55.4 mm Hg (80.0-90.0) L 05/04/22 09:36 ABG HCO3 43.7 mmol/L (20.0-26.0) H 05/04/22 09:36 ABG O2 Saturation 87.4 % (95.0-99.0) L 05/04/22 09:36 ABG O2 Content 11.0 (0.0-44) 05/04/22 09:36 ABG Base Excess 16.1 mmol/L (-2.0-3.0) H 05/04/22 09:36 ABG Hemoglobin 9.1 gm/dl (14.0-18.0) L 05/04/22 09:36 ABG Carboxyhemoglobin 1.5 % (0.0-5.0) 05/04/22 09:36 ABG Methemoglobin 0.4 % (0.0-1.5) 05/04/22 09:36 Oxyhemoglobin 85.7 % (95.0-99.0) L 05/04/22 09:36 FiO2 30 % 05/04/22 09:36 Sodium 135 mmol/L (137-145) L 05/13/22 04:02 Potassium 4.2 mmol/L (3.6-5.0) 05/13/22 04:02 Chloride 91.1 mmol/L (98-107) L 05/13/22 04:02 Carbon Dioxide 40 mmol/L (22-30) H 05/13/22 04:02 Anion Gap 8 mmol/L 05/13/22 04:02 BUN 23 mg/dL (9-20) H 05/13/22 04:02 Creatinine < 0.2 mg/dL (0.8-1.3) L 05/13/22 04:02 Estimated GFR > 60 ml/min 05/13/22 04:02 BUN/Creatinine Ratio 115 % 05/13/22 04:02 Glucose 139 mg/dL (75-100) H 05/13/22 04:02 POC Glucose 129 mg/dL (70-105) H 05/13/22 06:32 Lactic Acid 1.90 mmol/L (0.7-2.0) 04/02/22 19:39 Calcium 8.6 mg/dL (8.4-10.2) 05/13/22 04:02 Phosphorus 3.40 mg/dL (2.5-4.5) 05/05/22 04:23 Magnesium 1.90 mg/dL (1.7-2.3) 05/05/22 04:23 Total Bilirubin 0.80 mg/dL (0.1-1.2) 04/02/22 19:39 AST 15 units/L (5-40) 04/02/22 19:39 ALT 9 units/L (7-56) 04/02/22 19:39 Alkaline Phosphatase 43 units/L (35-129) 04/02/22 19:39 Total Creatine Kinase 46 units/L (55-170) L 04/08/22 17:47 CK-MB (CK-2) 2.6 ng/mL (0.0-4.0) 04/08/22 17:47 CK-MB (CK-2) Rel Index 5.6 (0-4) H 04/08/22 17:47 Troponin T 0.031 ng/mL (0.00-0.029) H 04/08/22 17:47 C-Reactive Protein 31.60 mg/dL (0.00-1.30) H 04/04/22 04:18 Total Protein 4.6 g/dL (6.3-8.2) L 04/02/22 19:39 Albumin 2.7 g/dL (3.9-5) L 04/02/22 19:39 Albumin/Globulin Ratio 1.4 % 04/02/22 19:39 Triglycerides 80 mg/dL (2-149) 04/02/22 19:39 Cholesterol 94 mg/dL (50-199) 04/02/22 19:39 LDL Cholesterol Direct 27 mg/dL (50-130) L 04/02/22 19:39 HDL Cholesterol 47 mg/dL (40-59) 04/02/22 19:39 Cholesterol/HDL Ratio 2.00 % 04/02/22 19:39 Procalcitonin 0.08 ng/mL (<0.15) 04/04/22 04:18 Urine Color [place] (Yellow) 04/05/22 17:45 Urine Turbidity Cloudy (Clear) 04/05/22 17:45 Urine pH 5.0 (5.0-7.0) 04/05/22 17:45 Ur Specific [place] 1.021 (1.003-1.030) 04/05/22 17:45 Urine Protein 30 mg/dl mg/dL (Negative) 04/05/22 17:45 Urine Glucose (UA) Neg mg/dL (Negative) 04/05/22 17:45 Urine Ketones Tr mg/dL (Negative) 04/05/22 17:45 Urine Blood Sm (Negative) 04/05/22 17:45 Urine Nitrite Neg (Negative) 04/05/22 17:45 Urine Bilirubin Neg (Negative) 04/05/22 17:45 Urine Urobilinogen < 2.0 mg/dL (<2.0) 04/05/22 17:45 Ur Leukocyte Esterase Tr (Negative) 04/05/22 17:45 Urine WBC (Auto) 8.0 /HPF (0.0-6.0) H 04/05/22 17:45 Urine RBC (Auto) 3.0 /HPF (0.0-6.0) 04/05/22 17:45 U Epithel Cells (Auto) 2.0 /HPF (0-13.0) 04/05/22 17:45 Urine Bacteria (Auto) 1+ /HPF (Negative) 04/02/22 Unknown Hyaline Casts 1 /LPF 04/05/22 17:45 Urine Mucus 3+ /HPF 04/05/22 17:45 Nasal Screen MRSA (PCR) Negative (Negative) 04/05/22 12:37 Vancomycin Trough 6.0 ug/mL (5.0-20.0) 04/05/22 18:53 Coronavirus (PCR) Negative (Negative) 04/07/22 14:52 Perez/IV: Voiding Method Condom Catheter Active Medications - Current Medications Current Medications: Generic Name Dose Route Start Last Admin Trade Name Freq PRN Reason Stop Dose Admin Acetaminophen 650 mg 04/02/22 23:53 05/04/22 21:37 Acetaminophen 325 Mg Tab PO 650 mg Q6H PRN Administration Pain MILD(1-3)/Fever >100.5/FAITH Acetylcysteine 200 mg 05/04/22 20:00 05/13/22 08:44 Acetylcysteine 20% 200 Mg/1 Ml *For Inhalation Use* INHALATION 200 mg Q12HRT SEGUNDO Administration Albuterol 2.5 mg 05/05/22 20:00 05/13/22 08:43 Albuterol 2.5 Mg/3 Ml Nebu IH 2.5 mg Q12HRT SEGUNDO Administration Bisacodyl 10 mg 04/07/22 09:44 04/12/22 10:06 Bisacodyl 10 Mg Rect Supp [place] 10 mg QDAY PRN Administration Constipation Docusate Sodium 100 mg 04/28/22 10:00 05/12/22 21:58 Docusate Sodium 100 Mg/10 Ml Oral Liqd FEEDTUBE 100 mg BID SEGUNDO Administration Famotidine 20 mg 04/06/22 10:00 05/12/22 22:00 Famotidine 20 Mg Tab FEEDTUBE 20 mg BID SEGUNDO Administration Fentanyl 50 mcg 04/04/22 15:56 05/11/22 22:00 Fentanyl 100 Mcg/2 Ml Inj IV 50 mcg Q2HR PRN Administration For CPOT of greater than 3 Heparin Sodium (Porcine) 5,000 unit 04/03/22 06:00 05/13/22 06:44 Heparin 5,000 Unit/1 Ml Vial SUB-Q 5,000 unit Q8HR SEGUNDO Administration Insulin Human Lispro 0 unit 05/05/22 06:00 05/13/22 06:44 Insulin Lispro 100 Unit/Ml SUB-Q Not Given Q8HR [facility] Protocol Magnesium Hydroxide 30 ml 04/02/22 23:53 Magnesium Hydroxide (Mom) Oral Liqd Udc PO Q4H PRN Constipation Metoprolol Tartrate 12.5 mg 05/03/22 13:00 05/13/22 05:43 Metoprolol Tartrate 25 Mg Tab FEEDTUBE Not Given Q6HR [facility] [facility] Ondansetron HCl 4 mg 04/02/22 23:53 Ondansetron 4 Mg/2 Ml Inj IV Q8H PRN Nausea And Vomiting Polyethylene Glycol 17 gm 04/08/22 10:00 05/12/22 09:42 Polyethylene Glycol 3350 17 Gm Powder PO 17 gm QDAY SEGUNDO Administration Quetiapine Fumarate 50 mg 04/28/22 10:00 05/12/22 22:50 Quetiapine 25 Mg Tab FEEDTUBE 50 mg BID SEGUNDO Administration Scopolamine 1 each 05/12/22 09:00 05/12/22 17:37 Scopolamine Transdermal Patch 72 Hr TD Not Given Q3D SEGUNDO Senna 17.6 mg 04/28/22 10:00 05/12/22 21:58 Sennosides Oral Liqd 8.8 Mg/5 Ml Oral Liqd FEEDTUBE 17.6 mg Q12HR SEGUNDO Administration Sodium Chloride 10 ml 04/03/22 10:00 05/12/22 22:43 Sodium Chloride 0.9% 10 Ml Flush Syringe IV Not Given BID SEGUNDO Sodium Chloride 10 ml 04/02/22 23:53 Sodium Chloride 0.9% 10 Ml Flush Syringe IV PRN PRN LINE FLUSH Nutrition/Malnutrition Assess - Dietary Evaluation Nutrition/Malnutrition Findings: Nutrition Notes Start: 04/04/22 13:13 Freq: Status: Active Protocol: Document 05/11/22 11:49 COLLEEN (Rec: 05/11/22 12:02 COLLEEN [id number]) Nutrition Notes Initial or Follow up Reassessment Current Diagnosis Coronary Artery Disease, Decubitus(Pressure Ulcer), Sepsis,Respiratory Failure, Malnutrition Other Pertinent Diagnosis HCAP, ALS, Broncopneumonia, NSTEMI, Cardiomyopathy, ... Current Diet TF-Vital AF 1.2 Inderjit @ 50 ml/hr (since D 04/15). Labs/Tests 05/09: Cl 92.9, CO2 40, Crea < 0.2, Glu 141. Pertinent Medications 05/11: Nutritionally unremarkable. Height 5 ft 4.8 in Weight 46.8 kg [place] Body Weight (kg) 61.27 BMI 17.2 Weight change and time frame No body weight change reported in 5 weeks. Weight Status Underweight Subjective/Other Information RD consult for routine F/U on TF tolerance/continuation. TF continues as prescribed, and well tolerated, according to RN notes. Pt continues on Mechanical ventilation, O2 saturation @ 93%, according to Physical Assessment Histroy notes. Pt will be discharged home with family; awaiting home- Vent family training to be over on 05/12, according to Progress notes. Percent of energy/protein needs met: Prescribed TF-Vital AF 1.2 Inderjit @ 50 ml/hr provides for energy/protein needs (1,450 Kcal/91 g) during LOS, 98% Kcal; 100% AA. Burn Absent Trauma Absent GI Symptoms Constipation Difficulty In Swallowing,Chewing Food Allergy No Skin Integrity/Comment Sacral open wound. Current % PO Other Minimum of two criteria No #1 Nutrition Diagnosis Inadequate oral intake Diagnosis Progress(for reassessment Continues documentation) Is patient on ventilator? Yes Is Patient Ambulatory and/or Out of Bed No REE-([place]-confined to bed) [phone] Calculation Used for Recommendations [facility] Additional Notes Protein: 1.2-2 g/Kg IBW; 73- 122 g/day. Fluids: 1 ml/Kcal, or as per MD. Nutrition Intervention Nutrition Support: Continue TF-Vital AF 1.2 Inderjit @ 50 ml/hr. Flush: 80 ml water Q 4 hr, or as per MD. Kcal 1,450 Protein (gm) 91 Carbohydrates (gm) 134 Fat (gm) 65 Fluid (mL) 980 Fiber (gm) 6 % RDI: 98% Kcal; 100% AA. Goal #1 Provide at least 75% of energy /protein needs through Enteral Feeding during LOS. Follow-Up By: 05/18/22 Additional Comments Continue monitoring TF tolerance and BM. <DIXIE BROWN - Last Filed: 05/14/22 07:07> Assessment and Plan Assessment and plan: I saw and evaluated the patient. I agree with the findings and the plan of care as documented in the Nurse Practitioner's~note, with the following corrections and additions. Hospitalist Physical - Constitutional Vitals: Temp Pulse Resp BP Pulse Ox 99.7 F H 86 21 92/56 91 05/14/22 04:00 05/14/22 06:14 05/14/22 06:00 05/14/22 06:14 05/14/22 06:00 HEART Score - HEART Score Troponin: Troponin T 0.031 ng/mL (0.00-0.029) H 04/08/22 17:47 Results - Labs CBC & Chem 7: 05/13/22 04:02 05/13/22 04:02 Labs: Laboratory Last Values WBC 13.3 K/mm3 (4.5-11.0) H 05/13/22 04:02 RBC 3.14 M/mm3 (3.65-5.03) L 05/13/22 04:02 Hgb 8.7 gm/dl (11.8-15.2) L 05/13/22 04:02 Hct 28.0 % (35.5-45.6) L 05/13/22 04:02 MCV 89 fl (84-94) 05/13/22 04:02 MCH 28 pg (28-32) 05/13/22 04:02 MCHC 31 % (32-34) L 05/13/22 04:02 RDW 15.2 % (13.2-15.2) 05/13/22 04:02 Plt Count 418 K/mm3 (140-440) 05/13/22 04:02 Lymph % (Auto) 8.1 % (13.4-35.0) L 05/09/22 15:15 [place] % (Auto) 4.9 % (0.0-7.3) 05/09/22 15:15 Eos % (Auto) 0.6 % (0.0-4.3) 05/09/22 15:15 Baso % (Auto) 0.3 % (0.0-1.8) 05/09/22 15:15 Lymph # (Auto) 0.9 K/mm3 (1.2-5.4) L 05/09/22 15:15 [place] # (Auto) 0.5 K/mm3 (0.0-0.8) 05/09/22 15:15 Eos # (Auto) 0.1 K/mm3 (0.0-0.4) 05/09/22 15:15 Baso # (Auto) 0.0 K/mm3 (0.0-0.1) 05/09/22 15:15 Add Manual Diff Complete 04/02/22 19:39 Total Counted 100 04/02/22 19:39 Seg Neutrophils % 86.1 % (40.0-70.0) H 05/09/22 15:15 Seg Neuts % (Manual) 94.0 % (40.0-70.0) H 04/02/22 19:39 Band Neutrophils % 0 % 04/02/22 19:39 Lymphocytes % (Manual) 1.0 % (13.4-35.0) L 04/02/22 19:39 Reactive Lymphs % (Man) 0 % 04/02/22 19:39 Monocytes % (Manual) 5.0 % (0.0-7.3) 04/02/22 19:39 Eosinophils % (Manual) 0 % (0.0-4.3) 04/02/22 19:39 Basophils % (Manual) 0 % (0.0-1.8) 04/02/22 19:39 Metamyelocytes % 0 % 04/02/22 19:39 Myelocytes % 0 % 04/02/22 19:39 Promyelocytes % 0 % 04/02/22 19:39 Blast Cells % 0 % 04/02/22 19:39 Nucleated RBC % Not Reportable 04/02/22 19:39 Seg Neutrophils # 9.2 K/mm3 (1.8-7.7) H 05/09/22 15:15 Seg Neutrophils # Man 13.4 K/mm3 (1.8-7.7) H 04/02/22 19:39 Band Neutrophils # 0.0 K/mm3 04/02/22 19:39 Lymphocytes # (Manual) 0.1 K/mm3 (1.2-5.4) L 04/02/22 19:39 Abs React Lymphs (Man) 0.0 K/mm3 04/02/22 19:39 Monocytes # (Manual) 0.7 K/mm3 (0.0-0.8) 04/02/22 19:39 Eosinophils # (Manual) 0.0 K/mm3 (0.0-0.4) 04/02/22 19:39 Basophils # (Manual) 0.0 K/mm3 (0.0-0.1) 04/02/22 19:39 Metamyelocytes # 0.0 K/mm3 04/02/22 19:39 Myelocytes # 0.0 K/mm3 04/02/22 19:39 Promyelocytes # 0.0 K/mm3 04/02/22 19:39 Blast Cells # 0.0 K/mm3 04/02/22 19:39 WBC Morphology Not Reportable 04/02/22 19:39 Hypersegmented Neuts Not Reportable 04/02/22 19:39 Hyposegmented Neuts Not Reportable 04/02/22 19:39 Hypogranular Neuts Not Reportable 04/02/22 19:39 Smudge Cells Not Reportable 04/02/22 19:39 Toxic Granulation Not Reportable 04/02/22 19:39 Toxic Vacuolation Not Reportable 04/02/22 19:39 Dohle Bodies Not Reportable 04/02/22 19:39 Pelger-Huet Anomaly Not Reportable 04/02/22 19:39 Terry Rods Not Reportable 04/02/22 19:39 Platelet Estimate Consistent w auto 04/02/22 19:39 Clumped Platelets Not Reportable 04/02/22 19:39 Plt Clumps, EDTA Not Reportable 04/02/22 19:39 Large Platelets Not Reportable 04/02/22 19:39 Giant Platelets Not Reportable 04/02/22 19:39 Platelet Satelliting Not Reportable 04/02/22 19:39 Plt Morphology Comment Not Reportable 04/02/22 19:39 RBC Morphology Not Reportable 04/02/22 19:39 Dimorphic RBCs Not Reportable 04/02/22 19:39 Polychromasia Not Reportable 04/02/22 19:39 Hypochromasia Not Reportable 04/02/22 19:39 Poikilocytosis Not Reportable 04/02/22 19:39 Anisocytosis 1+ 04/02/22 19:39 Microcytosis Not Reportable 04/02/22 19:39 Macrocytosis Not Reportable 04/02/22 19:39 Spherocytes Not Reportable 04/02/22 19:39 Pappenheimer Bodies Not Reportable 04/02/22 19:39 Sickle Cells Not Reportable 04/02/22 19:39 Target Cells Not Reportable 04/02/22 19:39 Tear Drop Cells Not Reportable 04/02/22 19:39 Ovalocytes Not Reportable 04/02/22 19:39 Helmet Cells Not Reportable 04/02/22 19:39 [place] Bodies Not Reportable 04/02/22 19:39 [place] Rings Not Reportable 04/02/22 19:39 [place] Cells Not Reportable 04/02/22 19:39 Bite Cells Not Reportable 04/02/22 19:39 Crenated Cell Not Reportable 04/02/22 19:39 Elliptocytes Not Reportable 04/02/22 19:39 Acanthocytes (Spur) Not Reportable 04/02/22 19:39 Rouleaux Not Reportable 04/02/22 19:39 Hemoglobin C Crystals Not Reportable 04/02/22 19:39 Schistocytes Not Reportable 04/02/22 19:39 Malaria parasites Not Reportable 04/02/22 19:39 [place] Bodies Not Reportable 04/02/22 19:39 Hem Pathologist Commnt No 04/02/22 19:39 PT 13.6 Sec. (12.2-14.9) 04/13/22 04:30 INR 0.94 (0.87-1.13) 04/13/22 04:30 APTT 35.7 Sec. (24.2-36.6) 04/07/22 03:51 ABG pH 7.383 pH Units (7.350-7.450) 05/04/22 09:36 ABG pCO2 75.0 mm Hg 05/04/22 09:36 ABG pO2 55.4 mm Hg (80.0-90.0) L 05/04/22 09:36 ABG HCO3 43.7 mmol/L (20.0-26.0) H 05/04/22 09:36 ABG O2 Saturation 87.4 % (95.0-99.0) L 05/04/22 09:36 ABG O2 Content 11.0 (0.0-44) 05/04/22 09:36 ABG Base Excess 16.1 mmol/L (-2.0-3.0) H 05/04/22 09:36 ABG Hemoglobin 9.1 gm/dl (14.0-18.0) L 05/04/22 09:36 ABG Carboxyhemoglobin 1.5 % (0.0-5.0) 05/04/22 09:36 ABG Methemoglobin 0.4 % (0.0-1.5) 05/04/22 09:36 Oxyhemoglobin 85.7 % (95.0-99.0) L 05/04/22 09:36 FiO2 30 % 05/04/22 09:36 Sodium 135 mmol/L (137-145) L 05/13/22 04:02 Potassium 4.2 mmol/L (3.6-5.0) 05/13/22 04:02 Chloride 91.1 mmol/L (98-107) L 05/13/22 04:02 Carbon Dioxide 40 mmol/L (22-30) H 05/13/22 04:02 Anion Gap 8 mmol/L 05/13/22 04:02 BUN 23 mg/dL (9-20) H 05/13/22 04:02 Creatinine < 0.2 mg/dL (0.8-1.3) L 05/13/22 04:02 Estimated GFR > 60 ml/min 05/13/22 04:02 BUN/Creatinine Ratio 115 % 05/13/22 04:02 Glucose 139 mg/dL (75-100) H 05/13/22 04:02 POC Glucose 130 mg/dL (70-105) H 05/14/22 05:44 Lactic Acid 1.90 mmol/L (0.7-2.0) 04/02/22 19:39 Calcium 8.6 mg/dL (8.4-10.2) 05/13/22 04:02 Phosphorus 3.40 mg/dL (2.5-4.5) 05/05/22 04:23 Magnesium 1.90 mg/dL (1.7-2.3) 05/05/22 04:23 Total Bilirubin 0.80 mg/dL (0.1-1.2) 04/02/22 19:39 AST 15 units/L (5-40) 04/02/22 19:39 ALT 9 units/L (7-56) 04/02/22 19:39 Alkaline Phosphatase 43 units/L (35-129) 04/02/22 19:39 Total Creatine Kinase 46 units/L (55-170) L 04/08/22 17:47 CK-MB (CK-2) 2.6 ng/mL (0.0-4.0) 04/08/22 17:47 CK-MB (CK-2) Rel Index 5.6 (0-4) H 04/08/22 17:47 Troponin T 0.031 ng/mL (0.00-0.029) H 04/08/22 17:47 C-Reactive Protein 31.60 mg/dL (0.00-1.30) H 04/04/22 04:18 Total Protein 4.6 g/dL (6.3-8.2) L 04/02/22 19:39 Albumin 2.7 g/dL (3.9-5) L 04/02/22 19:39 Albumin/Globulin Ratio 1.4 % 04/02/22 19:39 Triglycerides 80 mg/dL (2-149) 04/02/22 19:39 Cholesterol 94 mg/dL (50-199) 04/02/22 19:39 LDL Cholesterol Direct 27 mg/dL (50-130) L 04/02/22 19:39 HDL Cholesterol 47 mg/dL (40-59) 04/02/22 19:39 Cholesterol/HDL Ratio 2.00 % 04/02/22 19:39 Procalcitonin 0.08 ng/mL (<0.15) 04/04/22 04:18 Urine Color Aracely (Yellow) 04/05/22 17:45 Urine Turbidity Cloudy (Clear) 04/05/22 17:45 Urine pH 5.0 (5.0-7.0) 04/05/22 17:45 Ur Specific [place] 1.021 (1.003-1.030) 04/05/22 17:45 Urine Protein 30 mg/dl mg/dL (Negative) 04/05/22 17:45 Urine Glucose (UA) Neg mg/dL (Negative) 04/05/22 17:45 Urine Ketones Tr mg/dL (Negative) 04/05/22 17:45 Urine Blood Sm (Negative) 04/05/22 17:45 Urine Nitrite Neg (Negative) 04/05/22 17:45 Urine Bilirubin Neg (Negative) 04/05/22 17:45 Urine Urobilinogen < 2.0 mg/dL (<2.0) 04/05/22 17:45 Ur Leukocyte Esterase Tr (Negative) 04/05/22 17:45 Urine WBC (Auto) 8.0 /HPF (0.0-6.0) H 04/05/22 17:45 Urine RBC (Auto) 3.0 /HPF (0.0-6.0) 04/05/22 17:45 U Epithel Cells (Auto) 2.0 /HPF (0-13.0) 04/05/22 17:45 Urine Bacteria (Auto) 1+ /HPF (Negative) 04/02/22 Unknown Hyaline Casts 1 /LPF 04/05/22 17:45 Urine Mucus 3+ /HPF 04/05/22 17:45 Nasal Screen MRSA (PCR) Negative (Negative) 04/05/22 12:37 Vancomycin Trough 6.0 ug/mL (5.0-20.0) 04/05/22 18:53 Coronavirus (PCR) Negative (Negative) 04/07/22 14:52 Perez/IV: Voiding Method Condom Catheter Active Medications - Current Medications Current Medications: Generic Name Dose Route Start Last Admin Trade Name Freq PRN Reason Stop Dose Admin Acetaminophen 650 mg 04/02/22 23:53 05/04/22 21:37 Acetaminophen 325 Mg Tab PO 650 mg Q6H PRN Administration Pain MILD(1-3)/Fever >100.5/FAITH Acetylcysteine 200 mg 05/04/22 20:00 05/13/22 20:53 Acetylcysteine 20% 200 Mg/1 Ml *For Inhalation Use* INHALATION 200 mg Q12HRT SEGUNDO Administration Albuterol 2.5 mg 05/05/22 20:00 05/13/22 20:52 Albuterol 2.5 Mg/3 Ml Nebu IH 2.5 mg Q12HRT SEGUNDO Administration Bisacodyl 10 mg 04/07/22 09:44 04/12/22 10:06 Bisacodyl 10 Mg Rect Supp [place] 10 mg QDAY PRN Administration Constipation Docusate Sodium 100 mg 04/28/22 10:00 05/13/22 21:17 Docusate Sodium 100 Mg/10 Ml Oral Liqd FEEDTUBE Not Given BID SEGUNDO Famotidine 20 mg 04/06/22 10:00 05/13/22 21:48 Famotidine 20 Mg Tab FEEDTUBE 20 mg BID [facility] Administration Fentanyl 50 mcg 04/04/22 15:56 05/11/22 22:00 Fentanyl 100 Mcg/2 Ml Inj IV 50 mcg Q2HR PRN Administration For CPOT of greater than 3 Heparin Sodium (Porcine) 5,000 unit 04/03/22 06:00 05/14/22 06:13 Heparin 5,000 Unit/1 Ml Vial SUB-Q 5,000 unit Q8HR [facility] Administration Insulin Human Lispro 0 unit 05/05/22 06:00 05/14/22 06:13 Insulin Lispro 100 Unit/Ml SUB-Q Not Given Q8HR [facility] Protocol Magnesium Hydroxide 30 ml 04/02/22 23:53 Magnesium Hydroxide (Mom) Oral Liqd Udc PO Q4H PRN Constipation Metoprolol Tartrate 12.5 mg 05/03/22 13:00 05/14/22 06:14 Metoprolol Tartrate 25 Mg Tab FEEDTUBE Not Given Q6HR [facility] Ondansetron HCl 4 mg 04/02/22 23:53 Ondansetron 4 Mg/2 Ml Inj IV Q8H PRN Nausea And Vomiting Polyethylene Glycol 17 gm 04/08/22 10:00 05/13/22 11:24 Polyethylene Glycol 3350 17 Gm Powder PO Not Given QDAY [facility] Quetiapine Fumarate 50 mg 05/13/22 11:00 05/13/22 21:48 Quetiapine 100 Mg Tab FEEDTUBE 50 mg BID SEGUNDO Administration Scopolamine 1 each 05/12/22 09:00 05/12/22 17:37 Scopolamine Transdermal Patch 72 Hr TD Not Given Q3D SEGUNDO Senna 17.6 mg 04/28/22 10:00 05/13/22 21:16 Sennosides Oral Liqd 8.8 Mg/5 Ml Oral Liqd FEEDTUBE Not Given Q12HR SEGUNDO Sodium Chloride 10 ml 04/03/22 10:00 05/14/22 00:44 Sodium Chloride 0.9% 10 Ml Flush Syringe IV 10 ml BID SEGUNDO Administration Sodium Chloride 10 ml 04/02/22 23:53 Sodium Chloride 0.9% 10 Ml Flush Syringe IV PRN PRN LINE FLUSH Nutrition/Malnutrition Assess - Dietary Evaluation Nutrition/Malnutrition Findings: Nutrition Notes Start: 04/04/22 13:13 Freq: Status: Active Protocol: Document 05/11/22 11:49 COLLEEN (Rec: 05/11/22 12:02 COLLEEN [id number]) Nutrition Notes Initial or Follow up Reassessment Current Diagnosis Coronary Artery Disease, Decubitus(Pressure Ulcer), Sepsis,Respiratory Failure, Malnutrition Other Pertinent Diagnosis HCAP, ALS, Broncopneumonia, NSTEMI, Cardiomyopathy, ... Current Diet TF-Vital AF 1.2 Inderjit @ 50 ml/hr (since D 04/15). Labs/Tests 05/09: Cl 92.9, CO2 40, Crea < 0.2, Glu 141. Pertinent Medications 05/11: Nutritionally unremarkable. Height 5 ft 4.8 in Weight 46.8 kg [place] Body Weight (kg) 61.27 BMI 17.2 Weight change and time frame No body weight change reported in 5 weeks. Weight Status Underweight Subjective/Other Information RD consult for routine F/U on TF tolerance/continuation. TF continues as prescribed, and well tolerated, according to RN notes. Pt continues on Mechanical ventilation, O2 saturation @ 93%, according to Physical Assessment Histroy notes. Pt will be discharged home with family; awaiting home- Vent family training to be over on 05/12, according to Progress notes. Percent of energy/protein needs met: Prescribed TF-Vital AF 1.2 Inderjit @ 50 ml/hr provides for energy/protein needs (1,450 Kcal/91 g) during LOS, 98% Kcal; 100% AA. Burn Absent Trauma Absent GI Symptoms Constipation Difficulty In Swallowing,Chewing Food Allergy No Skin Integrity/Comment Sacral open wound. Current % PO Other Minimum of two criteria No #1 Nutrition Diagnosis Inadequate oral intake Diagnosis Progress(for reassessment Continues documentation) Is patient on ventilator? Yes Is Patient Ambulatory and/or Out of Bed No REE-([facility]-confined to bed) [phone] Calculation Used for Recommendations [facility] Additional Notes Protein: 1.2-2 g/Kg IBW; 73- 122 g/day. Fluids: 1 ml/Kcal, or as per MD. Nutrition Intervention Nutrition Support: Continue TF-Vital AF 1.2 Inderjit @ 50 ml/hr. Flush: 80 ml water Q 4 hr, or as per MD. Kcal 1,450 Protein (gm) 91 Carbohydrates (gm) 134 Fat (gm) 65 Fluid (mL) 980 Fiber (gm) 6 % RDI: 98% Kcal; 100% AA. Goal #1 Provide at least 75% of energy /protein needs through Enteral Feeding during LOS. Follow-Up By: 05/18/22 Additional Comments Continue monitoring TF tolerance and BM.
[2022-05-13] MEDS: QUEtiapine 100 MG TAB FEEDTUBE SCH ×2 (11:07→21:48)
[2022-05-13] MEDS: FAMOTIDINE 20 MG TAB FEEDTUBE SCH ×2 (11:09→21:48)
[2022-05-13] MEDS: DOCUSATE SODIUM 100 MG/10 ML ORAL LIQD FEEDTUBE SCH ×2 (11:24→21:17)
[2022-05-13] MEDS: POLYETHYLENE GLYCOL 3350 17 GM POWDER PO SCH (11:24)
[2022-05-13] MEDS: SENNOSIDES ORAL LIQD 8.8 MG/5 ML ORAL LIQD FEEDTUBE SCH ×2 (11:26→21:16)
[2022-05-14] MEDS: METOPROLOL TARTRATE 25 MG TAB FEEDTUBE SCH ×4 (00:44→18:21)
[2022-05-14] MEDS: INSULIN LISPRO 100 UNIT/ML SUB-Q SCH ×2 (06:13→14:54)
[2022-05-14] MEDS: HEPARIN 5,000 UNIT/1 ML VIAL SUB-Q SCH ×3 (06:13→21:11)
[2022-05-14] MEDS: ALBUTEROL 2.5 MG/3 ML NEBU IH SCH ×2 (08:08→21:13)
[2022-05-14] MEDS: ACETYLCYSTEINE 20% 200 MG/1 ML *FOR INHALATION USE INHALATION SCH ×2 (08:09→21:13)
[2022-05-14] MEDS: QUEtiapine 100 MG TAB FEEDTUBE SCH ×2 (09:48→21:10)
[2022-05-14] MEDS: FAMOTIDINE 20 MG TAB FEEDTUBE SCH ×2 (09:48→21:11)
[2022-05-14] MEDS: POLYETHYLENE GLYCOL 3350 17 GM POWDER PO SCH (09:49)
[2022-05-14] MEDS: DOCUSATE SODIUM 100 MG/10 ML ORAL LIQD FEEDTUBE SCH ×2 (09:49→21:11)
[2022-05-14] MEDS: SENNOSIDES ORAL LIQD 8.8 MG/5 ML ORAL LIQD FEEDTUBE SCH ×2 (09:49→21:11)
--- NOTE | 2022-05-14 10:28 | Progress Note ---
<ALEK SMITH - Last Filed: 05/14/22 17:28> Assessment and Plan Assessment and plan: This is a 57-year-old male with known history of ALS, recently hospitalized at [facility] admitted for acute hypoxemic respiratory failure 2/2 pneumonia Hospital Course to Date: 04/03: Intubated and Sedated on versed gtt, RASS-5. CT head/brain noted with no acute intracranial abnormality. Plan to initiated precededx gtt and wean off versed for a RASS goal of 0 to -2. CT chect also reviewed, findings are most consistent with acute bronchopneumonia. Continue empiric IV Abx, vent adjustment per CCM. ID consulted. Continue to F/U on cultures. Titrate pressor for MAP above 65. Medical records requested from [facility]. 04/04: Remains stable on the vent, easily arousable on precedex gtt, not following commands. Plan for SAT/SBT today. PRN analgesia for CPOT greater than 3. Fevers improved, cultures and procal pending. Continue current IV abx, ID also consulted. Remains on low dose pressors, titrate pressors for a MAP above 65. 04/05: Long discussion with family with use of translation phone with CCM regarding goals of care. Family to have meeting amongst themselves and informed care team of decisions. Fentanyl drip added for respiratory distress. Remains on Precedex drip. Antibiotics per ID. Given 2L NS bolus with levophed gtt 04/06: Family discussion with Dr. Grayson for goals of care. CXR shows possible mucus plug, continue CPT as FiO2 is being able to be weaned. Potassium repleted. Weaning fentnyl gtt. 04/07: Ultrasound guided thoracentesis today scheduled, inadequate amount of pleural effusion on so not completed. Patient was started on Levophed overnight which was weaned off this morning however had to be started twice a day. Remains on fentanyl and Precedex. Cardiology discontinued BB and ACEi in setting of hypotension. 04/08: COVID-19 PCR negative. Routine EEG ordered by cardiology which showed ST changes, cardiology aware. They will continue conservative treatment. Repeat troponins 0.030 which are less than admit of 0.048. Dr. Grayson had a long discu ssion with with the use of weight clerk today at bedside and has not made a decision regarding goals of care. Possible consult to surgery for trach/PEG early next week. Continues to require Precedex and fentanyl drip for sedation. Carvedilol/lisinopril discontinued as patient is continuously on Levophed. 04/09: No acute events reported overnight, remains on fentanyl, Precedex and Levophed drips. Dr. Grayson and Dr. Pineda updated family at bedside extensively today. Consulted surgery for trach/PEG. COVID-19 PCR negative. 04/10: Patient noted to have desaturation episodes, FiO2 increased slightly to 35%. Will add Mucomyst. Remains on fentanyl and Precedex. Off of Levophed. Surgery consulted for trach/PEG. 04/11: FiO2 increased over night likely related to hypoxia, continues on fent gtt, weaning precedex gtt as he is also on Seroquel. Will d/w CCM re scheduled or prn oxycodone 04/12: Periods of hypoxia and tachycardia this am. Symptoms improved post deep suction and tracheal lavage, Repeat CXR noted with no significant change. Continue CPT and mucomyst. Plan for possible trach/PEG tomorrow by general surgery. 04/13: Remains stable on the vent. Patient is wake and tracking but does not follow simple commands. No report of hypoxia from overnight, continue CPT and mucomyst. Plan for track and PEG today by General Surgery. Plan for LTAC placement post procedure, case management to arrange. 04/14: [facility] overnight, Trach and PEG postponed for today by general surgery. Plan for LTAC placement post procedure, case management to arrange. 04/15: S/p Trach and PEG. Up to 80% FiO2 this am, this am CXR noted suggesting possible mucus plug. D/W [facility] plan for bronch today. Continue CPT and mucomyst. Plan of care thoroughly discussed with patient's and son (who translated for ) at the bedside. Per , rn hematology had already discussed the risks and benefits of the procedure yesterday. She verbalized understanding and agreed with procedure and current care plan, consent signed. Okay to use PEG-tube for meds this am, resume TF once okay by general Surgery. Case management to arrange LTAC placement. 04/16: s/p Bronchocopy by [facility]. FiO2 down to 60%, angela 10 this am. This am CXR with moderate improvement. Continue CPT and mucomyst, wean Fio2 as tolerated for SPO2 above 92%. Patient is tolerating TF, advance to goal as ordered. Possible LTAC placement, case management to arrange. 04/17: [facility] overnight. remains stable on the vent, recent CXR and this am ABG n oted. Continue CPT and mucomyst, wean Fio2 as tolerated. 04/18: Remains stable on the vent, Fio2 down to 55% and peep of 8 this am. Continue to wean as tolerated, CPT, and mucomyst. Dsiposition- LTAC placement, case management to arrange. 04/19: No acute events overnight. Continue current management. 04/20: No acute events overnight, continue current management 04/21: Patient had chest ultrasound which showed trace pleural effusions, chest x-ray improved after the addition of Mucomyst yesterday. FiO2 55-65%. No acute events overnight. more interactive today. 04/22: Seroquel changed to BID, FiO2 was increased to 60%. RT increased FIO2 to 100 d/t desaturation into the 80s but was able to wean down. CCM increased PEEP and decreased FiO2. 04/23: CCM increase PEEP, no acute events reported overnight. 04/24: Spoke to RT about decreasing FiO2 as tolerated. No acute events reported overnight. Continue supportive management. 04/25: Weaning as tolerated. no acute events overnight. RT to attempt CPAP again today 04/26: [facility] overnight. Patient failed PSV trial again this morning. Continue s upportive management and daily PST trial. 04/27: Patient failed PSV trial again this am due to episodes of apnea. Continue daily PSV trial as tolerated. Case management to arrange LTAC placement 04/28: Remains stable. Continue daily PSV trial as tolerated. Awaiting approval for LTAC 04/29: [facility] overnight. Continue daily PSV trial. Awaiting approval for LTAC, case management to arrange. 04/30: Patient continue to fail PSV trial. Per case management patient was denied for LTAC, now possible SNF placement. Case managemen to arrange. Continue supportive measures and daily PSV trial as tolerated. 05/01: [facility] overnight. Continue supportive measures and daily PSV trial as tolerated. Possible SNF placement. 05/02: Continue supportive measures and daily PSV trial as tolerated. Possible SNF placement, case management to arrange 05/03: no acute events overnight, CM arranging home vent setup. Family declined SNF. 05/04: RN/RT reports thin secretions, increase in FiO2 for decreased oxygen on ABG. No acute events overnight. 05/05: Family scheduled for teaching session today at 2pm. Increase in FiO2 overnight to 45%. Awaiting vent setup for home care for ventilation secondary to tracheostomy. 05/06: No acute events reported overnight, T-max 100.9. FiO2 45%. Awaiting discharge home with vent when teaching is completed 05/07: No acute events reported overnight, Awaiting discharge home with vent when teaching is completed 05/08: No acute events reported overnight, Awaiting discharge home with vent when teaching is completed 05/09: no acute events reported overnight. Ordered routine labs today. Family continuing with vent training. Anticipate discharge home this week possibly on Tuesday. 05/10: [facility] overnight. Continue current supportive measures and family training at the bedside. Plan for discharge home tomorrow. 05/11: Discharge home today. supervisor paste mixing at 12pm 05/12: Discharge cancelled yesterday. Patient desated on home vent at max setting. Home vent is not sufficient to support patient's ventilation need. D/w [facility], Dr. Valdivia, who recommend SNF placement at this time. Patient's family notified at the bedside. All questions and concerns were address at this time. Further discussion on alternative placement to be determine and discussed with patient's family and case management today. The respiratory therapist from [facility] is schedule to come at 1400 today for further assessment. 05/13: Tolerating home vent this amd. Recent CXR reviewed with no significant change. Patient's home vent settings were adjusted by [facility]. [facility] respiratory therapist to come again today to make further adjusted to home vent. Plan is to optimize patient's on home vent for possible discharge home. 05/14: Patient continue to have periods of desaturations on home vent. Home vent setting adjusted and it was determined that patient require 12L to 15L of oxygen to maintain SPO2 goal above 88%. Will continue to optimized patient on home vent for possible discharge home on Tuesday. Assessment and Plan #Acute Hypoxemic Respiratory Failure 2/2 #Acute Bronchopneumonia - Intubated in the ED on 04/02 for hypoxemia and airway protection - 04/14 s/p Trach and PEG - 04/15 CXR reviewed complete opacity of the righ side suggesting possible mucus plug. See report for detail - 04/15 s/p Bronchoscopy by [facility] - Tolerating home vent this am, SPO2 at 95% - [facility] consulted, appreciate recommendations - Multiple failed vent wean - Continue CPT and mucomyst per [facility] - VAP bundle addressed - Aspiration precaution HOB above 30 - PRN ABG and CXR per [facility] - Continue SPO2 monitoring for SPO2 goal above 92% #Sepsis #Acute Bronchopneumonia #HCAP #Leukocytosis - CXR shows moderate to large layering effusion on the right, see report for full detail - CT chest also reviewed, findings are most consistent with acute bronchopneumonia. See report for full detail - Patient was recent hospitalized for pneumonia - Patient remains afebrile - Tracheal aspirate with Pseudomonas aeruginosa, Enterobacter aerogenes - 04/02 blood culture with bacillus species, 04/05 blood culture NGTD - Patient completed A32zipa of Cefepine - CRP 31.6, procalcitonin 0.08 - MRSA negative - Daily CBC monitor - ID signed off #Suspect ischemic coronary artery disease #h/o cardiomyopathy - Low BP probably due to hypovolemia vs sedation vs infectious process - s/p Levophed gtt - Elevated troponin possibly a type II troponin leak - Cardiology consulted, appreciated recommendations - Echocardiogram shows ejection fraction of 40 to 45%, mild global hypokinesis of left ventricle - Continue BB - Continue blood pressure monitor per protocol - Maintain MAP above 65 - On heparin SubQ #H/o Amyotrophic Lateral Sclerosis #Acute Metabolic Encephalopathy-resolved #Nonverbal at Baseline - Presented with AMS, per family patient is nonverbal at baseline but responsive - CT head/Brain with no acute intracranial process - Off sedation. Awake and calm - Continue Seroquel per [facility] - Avoid benzodiazepine to reduce the possibility of delirium - PRN analgesia for CPOT greater than 3 - Maintenance of sleep-wake cycle #Thrombocytopenia-resolved - Continue to trend plt - On heparin subQ - Monitor for s/s of any active bleeding #Hypernatremia-resolved - Monitor and replace electrolytes as needed - Continue to trend BMP #Protein Caloric Malnutrition - Albumin 2.7, Total protein 4.6 - 04/15 s/p EPG-Tube placement - Continue enteral nutrition - Nutrition consulted #Constipation - Noted on CXR and KUB - Continue BR #GI/DVT Prophylaxis - PPI- Pepcid - Heparin SubQ - SCDs to bilateral lower extremities while in bed #Advance Care Planning - Disease education data, care plan, diagnoses, and prognosis were discussed patient's , Carly Lopez, and patient daughter, Kaylee Warren, who translated for #[phone]. They reported that patient was following at [facility] for his ALS and during recent hospitalization at [facility] they were told nothing else can be offered to patient at this time and patient was discharge home with home hospice and PO morphine. First hospice visit was on , however, patient became unresponsive yesterday and they brought in to the hospital. - Goal of care and code status were also addressed at that time. Family wants to wait for a couple days to see how patient respond to current treatment before making a decision. All questions and concerns were addressed at this time. Patient family acknowledged understanding and agreement with care plan. - Patient remains a FULL CODE status -04/05: Discussion at bedside with interpreting service with Dr. Valdivia and family state they would discuss next steps amongst themselves and let healthcare team know of decisions -04/06: extensive discussion with family ( and son) with Dr. Grayson regarding goals of care -04/08: Extensive discussion with with the use of weight clerk line regarding goals of care; no decision made. Possible consult to surgery for trach/PEG early next week. -04/09: Discussion with and her sister with Dr. Grayson and then with Dr. Pineda-> Consulted surgery for trach/peg -04/30 Insurance Denied LTAC, plan for possible SNF placemenet now. Case management to arrange -05/12: Discharge cancelled yesterday. Patient desated on home vent at [place] setting. Home vent is not sufficient to support patient's ventilation need. -05/13: Adjustement made to home vent. Plan to optimize patient for possible discharge home. The high probability of a clinically significant, sudden or life threatening deterioration of the [multiple] system(s) required my full and direct attention, intervention and personal management. The aggregate critical care time was [60] minutes. This time is in addition to time spent performing reported procedures but includes the following: [x] Data Review and interpretation [x] Patient assessment and monitoring of vital signs [x] Documentation [x] Medication orders and management Disposition Plan: ICU Total Time Spent with Patient (Minutes): 60 History Interval history: Patient seen and examined at the bedside. Remains stable, tolerating home vent this am, VSRadha POOLE overnight Hospitalist Physical - Physical exam Narrative exam: General appearance: Present: no acute distress, cachectic, other (Trach and on the vent.Awake and tracking, following simple commands) - EENT Eyes: Present: PERRL - Neck Neck: Present: normal ROM - Respiratory Respiratory effort: normal Respiratory: bilateral: rhonchi - Cardiovascular Rhythm: regular Heart Sounds: Present: S1 & S2 - Extremities Extremities: no ischemia, pulses intact, pulses symmetrical Peripheral Pulses: within normal limits - Abdominal General gastrointestinal: soft, non-distended, normal bowel sounds - Integumentary Integumentary: Present: warm, dry - Psychiatric Psychiatric: other (Trach and on the vent. Awake and tracking, following simple commands) - Neurologic Neurologic: other (Trach and on the vent. Awake and tracking, following simple commands) - Allied Health Allied health notes reviewed: nursing, case management - Constitutional Vitals: Temp Pulse Resp BP Pulse Ox 97.5 F L 105 H 24 100/64 92 05/14/22 08:00 05/14/22 08:10 05/14/22 08:00 05/14/22 08:10 05/14/22 08:10 HEART Score - HEART Score Troponin: Troponin T 0.031 ng/mL (0.00-0.029) H 04/08/22 17:47 Results - Labs CBC & Chem 7: 05/13/22 04:02 05/13/22 04:02 Labs: Laboratory Last Values WBC 13.3 K/mm3 (4.5-11.0) H 05/13/22 04:02 RBC 3.14 M/mm3 (3.65-5.03) L 05/13/22 04:02 Hgb 8.7 gm/dl (11.8-15.2) L 05/13/22 04:02 Hct 28.0 % (35.5-45.6) L 05/13/22 04:02 MCV 89 fl (84-94) 05/13/22 04:02 MCH 28 pg (28-32) 05/13/22 04:02 MCHC 31 % (32-34) L 05/13/22 04:02 RDW 15.2 % (13.2-15.2) 05/13/22 04:02 Plt Count 418 K/mm3 (140-440) 05/13/22 04:02 Lymph % (Auto) 8.1 % (13.4-35.0) L 05/09/22 15:15 Quay % (Auto) 4.9 % (0.0-7.3) 05/09/22 15:15 Eos % (Auto) 0.6 % (0.0-4.3) 05/09/22 15:15 Baso % (Auto) 0.3 % (0.0-1.8) 05/09/22 15:15 Lymph # (Auto) 0.9 K/mm3 (1.2-5.4) L 05/09/22 15:15 Quay # (Auto) 0.5 K/mm3 (0.0-0.8) 05/09/22 15:15 Eos # (Auto) 0.1 K/mm3 (0.0-0.4) 05/09/22 15:15 Baso # (Auto) 0.0 K/mm3 (0.0-0.1) 05/09/22 15:15 Add Manual Diff Complete 04/02/22 19:39 Total Counted 100 04/02/22 19:39 Seg Neutrophils % 86.1 % (40.0-70.0) H 05/09/22 15:15 Seg Neuts % (Manual) 94.0 % (40.0-70.0) H 04/02/22 19:39 Band Neutrophils % 0 % 04/02/22 19:39 Lymphocytes % (Manual) 1.0 % (13.4-35.0) L 04/02/22 19:39 Reactive Lymphs % (Man) 0 % 04/02/22 19:39 Monocytes % (Manual) 5.0 % (0.0-7.3) 04/02/22 19:39 Eosinophils % (Manual) 0 % (0.0-4.3) 04/02/22 19:39 Basophils % (Manual) 0 % (0.0-1.8) 04/02/22 19:39 Metamyelocytes % 0 % 04/02/22 19:39 Myelocytes % 0 % 04/02/22 19:39 Promyelocytes % 0 % 04/02/22 19:39 Blast Cells % 0 % 04/02/22 19:39 Nucleated RBC % Not Reportable 04/02/22 19:39 Seg Neutrophils # 9.2 K/mm3 (1.8-7.7) H 05/09/22 15:15 Seg Neutrophils # Man 13.4 K/mm3 (1.8-7.7) H 04/02/22 19:39 Band Neutrophils # 0.0 K/mm3 04/02/22 19:39 Lymphocytes # (Manual) 0.1 K/mm3 (1.2-5.4) L 04/02/22 19:39 Abs React Lymphs (Man) 0.0 K/mm3 04/02/22 19:39 Monocytes # (Manual) 0.7 K/mm3 (0.0-0.8) 04/02/22 19:39 Eosinophils # (Manual) 0.0 K/mm3 (0.0-0.4) 04/02/22 19:39 Basophils # (Manual) 0.0 K/mm3 (0.0-0.1) 04/02/22 19:39 Metamyelocytes # 0.0 K/mm3 04/02/22 19:39 Myelocytes # 0.0 K/mm3 04/02/22 19:39 Promyelocytes # 0.0 K/mm3 04/02/22 19:39 Blast Cells # 0.0 K/mm3 04/02/22 19:39 WBC Morphology Not Reportable 04/02/22 19:39 Hypersegmented Neuts Not Reportable 04/02/22 19:39 Hyposegmented Neuts Not Reportable 04/02/22 19:39 Hypogranular Neuts Not Reportable 04/02/22 19:39 Smudge Cells Not Reportable 04/02/22 19:39 Toxic Granulation Not Reportable 04/02/22 19:39 Toxic Vacuolation Not Reportable 04/02/22 19:39 Dohle Bodies Not Reportable 04/02/22 19:39 Pelger-Huet Anomaly Not Reportable 04/02/22 19:39 Terry Rods Not Reportable 04/02/22 19:39 Platelet Estimate Consistent w auto 04/02/22 19:39 Clumped Platelets Not Reportable 04/02/22 19:39 Plt Clumps, EDTA Not Reportable 04/02/22 19:39 Large Platelets Not Reportable 04/02/22 19:39 Giant Platelets Not Reportable 04/02/22 19:39 Platelet Satelliting Not Reportable 04/02/22 19:39 Plt Morphology Comment Not Reportable 04/02/22 19:39 RBC Morphology Not Reportable 04/02/22 19:39 Dimorphic RBCs Not Reportable 04/02/22 19:39 Polychromasia Not Reportable 04/02/22 19:39 Hypochromasia Not Reportable 04/02/22 19:39 Poikilocytosis Not Reportable 04/02/22 19:39 Anisocytosis 1+ 04/02/22 19:39 Microcytosis Not Reportable 04/02/22 19:39 Macrocytosis Not Reportable 04/02/22 19:39 Spherocytes Not Reportable 04/02/22 19:39 Pappenheimer Bodies Not Reportable 04/02/22 19:39 Sickle Cells Not Reportable 04/02/22 19:39 Target Cells Not Reportable 04/02/22 19:39 Tear Drop Cells Not Reportable 04/02/22 19:39 Ovalocytes Not Reportable 04/02/22 19:39 Helmet Cells Not Reportable 04/02/22 19:39 [place] Bodies Not Reportable 04/02/22 19:39 [place] Rings Not Reportable 04/02/22 19:39 [place] Cells Not Reportable 04/02/22 19:39 Bite Cells Not Reportable 04/02/22 19:39 Crenated Cell Not Reportable 04/02/22 19:39 Elliptocytes Not Reportable 04/02/22 19:39 Acanthocytes (Spur) Not Reportable 04/02/22 19:39 Rouleaux Not Reportable 04/02/22 19:39 Hemoglobin C Crystals Not Reportable 04/02/22 19:39 Schistocytes Not Reportable 04/02/22 19:39 Malaria parasites Not Reportable 04/02/22 19:39 [place] Bodies Not Reportable 04/02/22 19:39 Hem Pathologist Commnt No 04/02/22 19:39 PT 13.6 Sec. (12.2-14.9) 04/13/22 04:30 INR 0.94 (0.87-1.13) 04/13/22 04:30 APTT 35.7 Sec. (24.2-36.6) 04/07/22 03:51 ABG pH 7.383 pH Units (7.350-7.450) 05/04/22 09:36 ABG pCO2 75.0 mm Hg 05/04/22 09:36 ABG pO2 55.4 mm Hg (80.0-90.0) L 05/04/22 09:36 ABG HCO3 43.7 mmol/L (20.0-26.0) H 05/04/22 09:36 ABG O2 Saturation 87.4 % (95.0-99.0) L 05/04/22 09:36 ABG O2 Content 11.0 (0.0-44) 05/04/22 09:36 ABG Base Excess 16.1 mmol/L (-2.0-3.0) H 05/04/22 09:36 ABG Hemoglobin 9.1 gm/dl (14.0-18.0) L 05/04/22 09:36 ABG Carboxyhemoglobin 1.5 % (0.0-5.0) 05/04/22 09:36 ABG Methemoglobin 0.4 % (0.0-1.5) 05/04/22 09:36 Oxyhemoglobin 85.7 % (95.0-99.0) L 05/04/22 09:36 FiO2 30 % 05/04/22 09:36 Sodium 135 mmol/L (137-145) L 05/13/22 04:02 Potassium 4.2 mmol/L (3.6-5.0) 05/13/22 04:02 Chloride 91.1 mmol/L (98-107) L 05/13/22 04:02 Carbon Dioxide 40 mmol/L (22-30) H 05/13/22 04:02 Anion Gap 8 mmol/L 05/13/22 04:02 BUN 23 mg/dL (9-20) H 05/13/22 04:02 Creatinine < 0.2 mg/dL (0.8-1.3) L 05/13/22 04:02 Estimated GFR > 60 ml/min 05/13/22 04:02 BUN/Creatinine Ratio 115 % 05/13/22 04:02 Glucose 139 mg/dL (75-100) H 05/13/22 04:02 POC Glucose 125 mg/dL (70-105) H 05/14/22 07:35 Lactic Acid 1.90 mmol/L (0.7-2.0) 04/02/22 19:39 Calcium 8.6 mg/dL (8.4-10.2) 05/13/22 04:02 Phosphorus 3.40 mg/dL (2.5-4.5) 05/05/22 04:23 Magnesium 1.90 mg/dL (1.7-2.3) 05/05/22 04:23 Total Bilirubin 0.80 mg/dL (0.1-1.2) 04/02/22 19:39 AST 15 units/L (5-40) 04/02/22 19:39 ALT 9 units/L (7-56) 04/02/22 19:39 Alkaline Phosphatase 43 units/L (35-129) 04/02/22 19:39 Total Creatine Kinase 46 units/L (55-170) L 04/08/22 17:47 CK-MB (CK-2) 2.6 ng/mL (0.0-4.0) 04/08/22 17:47 CK-MB (CK-2) Rel Index 5.6 (0-4) H 04/08/22 17:47 Troponin T 0.031 ng/mL (0.00-0.029) H 04/08/22 17:47 C-Reactive Protein 31.60 mg/dL (0.00-1.30) H 04/04/22 04:18 Total Protein 4.6 g/dL (6.3-8.2) L 04/02/22 19:39 Albumin 2.7 g/dL (3.9-5) L 04/02/22 19:39 Albumin/Globulin Ratio 1.4 % 04/02/22 19:39 Triglycerides 80 mg/dL (2-149) 04/02/22 19:39 Cholesterol 94 mg/dL (50-199) 04/02/22 19:39 LDL Cholesterol Direct 27 mg/dL (50-130) L 04/02/22 19:39 HDL Cholesterol 47 mg/dL (40-59) 04/02/22 19:39 Cholesterol/HDL Ratio 2.00 % 04/02/22 19:39 Procalcitonin 0.08 ng/mL (<0.15) 04/04/22 04:18 Urine Color Aracely (Yellow) 04/05/22 17:45 Urine Turbidity Cloudy (Clear) 04/05/22 17:45 Urine pH 5.0 (5.0-7.0) 04/05/22 17:45 Ur Specific [place] 1.021 (1.003-1.030) 04/05/22 17:45 Urine Protein 30 mg/dl mg/dL (Negative) 04/05/22 17:45 Urine Glucose (UA) Neg mg/dL (Negative) 04/05/22 17:45 Urine Ketones Tr mg/dL (Negative) 04/05/22 17:45 Urine Blood Sm (Negative) 04/05/22 17:45 Urine Nitrite Neg (Negative) 04/05/22 17:45 Urine Bilirubin Neg (Negative) 04/05/22 17:45 Urine Urobilinogen < 2.0 mg/dL (<2.0) 04/05/22 17:45 Ur Leukocyte Esterase Tr (Negative) 04/05/22 17:45 Urine WBC (Auto) 8.0 /HPF (0.0-6.0) H 04/05/22 17:45 Urine RBC (Auto) 3.0 /HPF (0.0-6.0) 04/05/22 17:45 U Epithel Cells (Auto) 2.0 /HPF (0-13.0) 04/05/22 17:45 Urine Bacteria (Auto) 1+ /HPF (Negative) 04/02/22 Unknown Hyaline Casts 1 /LPF 04/05/22 17:45 Urine Mucus 3+ /HPF 04/05/22 17:45 Nasal Screen MRSA (PCR) Negative (Negative) 04/05/22 12:37 Vancomycin Trough 6.0 ug/mL (5.0-20.0) 04/05/22 18:53 Coronavirus (PCR) Negative (Negative) 04/07/22 14:52 Perez/IV: Voiding Method Condom Catheter Active Medications - Current Medications Current Medications: Generic Name Dose Route Start Last Admin Trade Name Freq PRN Reason Stop Dose Admin Acetaminophen 650 mg 04/02/22 23:53 05/04/22 21:37 Acetaminophen 325 Mg Tab PO 650 mg Q6H PRN Administration Pain MILD(1-3)/Fever >100.5/FAITH Acetylcysteine 200 mg 05/04/22 20:00 07/08/22 08:09 Acetylcysteine 20% 200 Mg/1 Ml *For Inhalation Use* INHALATION 200 mg Q12HRT SEGUNDO Administration Albuterol 2.5 mg 05/05/22 20:00 05/14/22 08:08 Albuterol 2.5 Mg/3 Ml Nebu IH 2.5 mg Q12HRT SGEUNDO Administration Bisacodyl 10 mg 04/07/22 09:44 04/12/22 10:06 Bisacodyl 10 Mg Rect Supp AL 10 mg QDAY PRN Administration Constipation Docusate Sodium 100 mg 04/28/22 10:00 05/14/22 09:49 Docusate Sodium 100 Mg/10 Ml Oral Liqd FEEDTUBE Not Given BID SEGUNDO Famotidine 20 mg 04/06/22 10:00 05/14/22 09:48 Famotidine 20 Mg Tab FEEDTUBE 20 mg BID SEGUNDO Administration Fentanyl 50 mcg 04/04/22 15:56 05/11/22 22:00 Fentanyl 100 Mcg/2 Ml Inj IV 50 mcg Q2HR PRN Administration For CPOT of greater than 3 Heparin Sodium (Porcine) 5,000 unit 04/03/22 06:00 05/14/22 06:13 Heparin 5,000 Unit/1 Ml Vial SUB-Q 5,000 unit Q8HR [facility] Administration Insulin Human Lispro 0 unit 05/05/22 06:00 05/14/22 06:13 Insulin Lispro 100 Unit/Ml SUB-Q Not Given Q8HR [facility] Protocol Magnesium Hydroxide 30 ml 04/02/22 23:53 Magnesium Hydroxide (Mom) Oral Liqd Udc PO Q4H PRN Constipation Metoprolol Tartrate 12.5 mg 05/03/22 13:00 05/14/22 06:14 Metoprolol Tartrate 25 Mg Tab FEEDTUBE Not Given Q6HR [facility] Ondansetron HCl 4 mg 04/02/22 23:53 Ondansetron 4 Mg/2 Ml Inj IV Q8H PRN Nausea And Vomiting Polyethylene Glycol 17 gm 04/08/22 10:00 05/14/22 09:49 Polyethylene Glycol 3350 17 Gm Powder PO Not Given QDAY SEGUNDO Quetiapine Fumarate 50 mg 05/13/22 11:00 05/14/22 09:48 Quetiapine 100 Mg Tab FEEDTUBE 50 mg BID SEGUNDO Administration Scopolamine 1 each 05/12/22 09:00 05/12/22 17:37 Scopolamine Transdermal Patch 72 Hr TD Not Given Q3D SEGUNDO Senna 17.6 mg 04/28/22 10:00 05/14/22 09:49 Sennosides Oral Liqd 8.8 Mg/5 Ml Oral Liqd FEEDTUBE Not Given Q12HR SEGUNDO Sodium Chloride 10 ml 04/03/22 10:00 05/14/22 09:48 Sodium Chloride 0.9% 10 Ml Flush Syringe IV 10 ml BID SEGUNDO Administration Sodium Chloride 10 ml 04/02/22 23:53 Sodium Chloride 0.9% 10 Ml Flush Syringe IV PRN PRN LINE FLUSH Nutrition/Malnutrition Assess - Dietary Evaluation Nutrition/Malnutrition Findings: Nutrition Notes Start: 04/04/22 13:13 Freq: Status: Active Protocol: Document 05/11/22 11:49 COLLEEN (Rec: 05/11/22 12:02 COLLEEN [id number]) Nutrition Notes Initial or Follow up Reassessment Current Diagnosis Coronary Artery Disease, Decubitus(Pressure Ulcer), Sepsis,Respiratory Failure, Malnutrition Other Pertinent Diagnosis HCAP, ALS, Broncopneumonia, NSTEMI, Cardiomyopathy, ... Current Diet TF-Vital AF 1.2 Inderjit @ 50 ml/hr (since D 04/15). Labs/Tests 05/09: Cl 92.9, CO2 40, Crea < 0.2, Glu 141. Pertinent Medications 05/11: Nutritionally unremarkable. Height 5 ft 4.8 in Weight 46.8 kg [place] Body Weight (kg) 61.27 BMI 17.2 Weight change and time frame No body weight change reported in 5 weeks. Weight Status Underweight Subjective/Other Information RD consult for routine F/U on TF tolerance/continuation. TF continues as prescribed, and well tolerated, according to RN notes. Pt continues on Mechanical ventilation, O2 saturation @ 93%, according to Physical Assessment Histroy notes. Pt will be discharged home with family; awaiting home- Vent family training to be over on 05/12, according to Progress notes. Percent of energy/protein needs met: Prescribed TF-Vital AF 1.2 Inderjit @ 50 ml/hr provides for energy/protein needs (1,450 Kcal/91 g) during LOS, 98% Kcal; 100% AA. Burn Absent Trauma Absent GI Symptoms Constipation Difficulty In Swallowing,Chewing Food Allergy No Skin Integrity/Comment Sacral open wound. Current % PO Other Minimum of two criteria No #1 Nutrition Diagnosis Inadequate oral intake Diagnosis Progress(for reassessment Continues documentation) Is patient on ventilator? Yes Is Patient Ambulatory and/or Out of Bed No REE-([facility]-confined to bed) [phone] Calculation Used for Recommendations [facility] Additional Notes Protein: 1.2-2 g/Kg IBW; 73- 122 g/day. Fluids: 1 ml/Kcal, or as per MD. Nutrition Intervention Nutrition Support: Continue TF-Vital AF 1.2 Inderjit @ 50 ml/hr. Flush: 80 ml water Q 4 hr, or as per MD. Kcal 1,450 Protein (gm) 91 Carbohydrates (gm) 134 Fat (gm) 65 Fluid (mL) 980 Fiber (gm) 6 % RDI: 98% Kcal; 100% AA. Goal #1 Provide at least 75% of energy /protein needs through Enteral Feeding during LOS. Follow-Up By: 05/18/22 Additional Comments Continue monitoring TF tolerance and BM. <DIXIE BROWN E - Last Filed: 05/18/22 07:19> Assessment and Plan Assessment and plan: I saw and evaluated the patient. I agree with the findings and the plan of care as documented in the Nurse Practitioner's~note, with the following corrections and additions. Hospitalist Physical - Constitutional Vitals: Temp Pulse Resp BP Pulse Ox 99.6 F 98 H 10 L 97/60 100 05/18/22 07:16 05/18/22 06:00 05/18/22 06:00 05/18/22 06:48 05/18/22 06:00 HEART Score - HEART Score Troponin: Troponin T 0.031 ng/mL (0.00-0.029) H 04/08/22 17:47 Results - Labs CBC & Chem 7: 05/17/22 03:41 05/18/22 05:41 Labs: Laboratory Last Values WBC 16.2 K/mm3 (4.5-11.0) H 05/17/22 03:41 RBC 2.53 M/mm3 (3.65-5.03) L 05/17/22 03:41 Hgb 7.0 gm/dl (11.8-15.2) L 05/17/22 03:41 Hct 21.5 % (35.5-45.6) L 05/17/22 03:41 MCV 85 fl (84-94) 05/17/22 03:41 MCH 28 pg (28-32) 05/17/22 03:41 MCHC 33 % (32-34) 05/17/22 03:41 RDW 16.2 % (13.2-15.2) H 05/17/22 03:41 Plt Count 300 K/mm3 (140-440) 05/17/22 03:41 Lymph % (Auto) 8.1 % (13.4-35.0) L 05/09/22 15:15 Quay % (Auto) 4.9 % (0.0-7.3) 05/09/22 15:15 Eos % (Auto) 0.6 % (0.0-4.3) 05/09/22 15:15 Baso % (Auto) 0.3 % (0.0-1.8) 05/09/22 15:15 Lymph # (Auto) 0.9 K/mm3 (1.2-5.4) L 05/09/22 15:15 Quay # (Auto) 0.5 K/mm3 (0.0-0.8) 05/09/22 15:15 Eos # (Auto) 0.1 K/mm3 (0.0-0.4) 05/09/22 15:15 Baso # (Auto) 0.0 K/mm3 (0.0-0.1) 05/09/22 15:15 Add Manual Diff Complete 05/17/22 03:41 Total Counted 100 05/17/22 03:41 Seg Neutrophils % Director Of Valuation 05/17/22 03:41 Seg Neuts % (Manual) 96.0 % (40.0-70.0) H 05/17/22 03:41 Band Neutrophils % 0 % 05/17/22 03:41 Lymphocytes % (Manual) 1.0 % (13.4-35.0) L 05/17/22 03:41 Reactive Lymphs % (Man) 0 % 05/17/22 03:41 Monocytes % (Manual) 3.0 % (0.0-7.3) 05/17/22 03:41 Eosinophils % (Manual) 0 % (0.0-4.3) 05/17/22 03:41 Basophils % (Manual) 0 % (0.0-1.8) 05/17/22 03:41 Metamyelocytes % 0 % 05/17/22 03:41 Myelocytes % 0 % 05/17/22 03:41 Promyelocytes % 0 % 05/17/22 03:41 Blast Cells % 0 % 05/17/22 03:41 Nucleated RBC % Not Reportable 05/17/22 03:41 Seg Neutrophils # 9.2 K/mm3 (1.8-7.7) H 05/09/22 15:15 Seg Neutrophils # Man 15.6 K/mm3 (1.8-7.7) H 05/17/22 03:41 Band Neutrophils # 0.0 K/mm3 05/17/22 03:41 Lymphocytes # (Manual) 0.2 K/mm3 (1.2-5.4) L 05/17/22 03:41 Abs React Lymphs (Man) 0.0 K/mm3 05/17/22 03:41 Monocytes # (Manual) 0.5 K/mm3 (0.0-0.8) 05/17/22 03:41 Eosinophils # (Manual) 0.0 K/mm3 (0.0-0.4) 05/17/22 03:41 Basophils # (Manual) 0.0 K/mm3 (0.0-0.1) 05/17/22 03:41 Metamyelocytes # 0.0 K/mm3 05/17/22 03:41 Myelocytes # 0.0 K/mm3 05/17/22 03:41 Promyelocytes # 0.0 K/mm3 05/17/22 03:41 Blast Cells # 0.0 K/mm3 05/17/22 03:41 WBC Morphology Not Reportable 05/17/22 03:41 Hypersegmented Neuts Not Reportable 05/17/22 03:41 Hyposegmented Neuts Not Reportable 05/17/22 03:41 Hypogranular Neuts Not Reportable 05/17/22 03:41 Smudge Cells Not Reportable 05/17/22 03:41 Toxic Granulation Not Reportable 05/17/22 03:41 Toxic Vacuolation Not Reportable 05/17/22 03:41 Dohle Bodies Not Reportable 05/17/22 03:41 Pelger-Huet Anomaly Not Reportable 05/17/22 03:41 Terry Rods Not Reportable 05/17/22 03:41 Platelet Estimate Consistent w auto 05/17/22 03:41 Clumped Platelets Not Reportable 05/17/22 03:41 Plt Clumps, EDTA Not Reportable 05/17/22 03:41 Large Platelets Not Reportable 05/17/22 03:41 Giant Platelets Not Reportable 05/17/22 03:41 Platelet Satelliting Not Reportable 05/17/22 03:41 Plt Morphology Comment Not Reportable 05/17/22 03:41 RBC Morphology Not Reportable 05/17/22 03:41 Dimorphic RBCs Not Reportable 05/17/22 03:41 Polychromasia Not Reportable 05/17/22 03:41 Hypochromasia Not Reportable 05/17/22 03:41 Poikilocytosis Not Reportable 05/17/22 03:41 Anisocytosis 1+ 05/17/22 03:41 Microcytosis Not Reportable 05/17/22 03:41 Macrocytosis Not Reportable 05/17/22 03:41 Spherocytes Not Reportable 05/17/22 03:41 Pappenheimer Bodies Not Reportable 05/17/22 03:41 Sickle Cells Not Reportable 05/17/22 03:41 Target Cells Not Reportable 05/17/22 03:41 Tear Drop Cells Not Reportable 05/17/22 03:41 Ovalocytes Not Reportable 05/17/22 03:41 Helmet Cells Not Reportable 05/17/22 03:41 [place] Bodies Not Reportable 05/17/22 03:41 [place] Rings Not Reportable 05/17/22 03:41 [place] Cells Not Reportable 05/17/22 03:41 Bite Cells Not Reportable 05/17/22 03:41 Crenated Cell Not Reportable 05/17/22 03:41 Elliptocytes Not Reportable 05/17/22 03:41 Acanthocytes (Spur) Not Reportable 05/17/22 03:41 Rouleaux Not Reportable 05/17/22 03:41 Hemoglobin C Crystals Not Reportable 05/17/22 03:41 Schistocytes Not Reportable 05/17/22 03:41 Malaria parasites Not Reportable 05/17/22 03:41 [place] Bodies Not Reportable 05/17/22 03:41 Hem Pathologist Commnt No 05/17/22 03:41 PT 13.6 Sec. (12.2-14.9) 04/13/22 04:30 INR 0.94 (0.87-1.13) 04/13/22 04:30 APTT 35.7 Sec. (24.2-36.6) 04/07/22 03:51 ABG pH 7.383 pH Units (7.350-7.450) 05/04/22 09:36 ABG pCO2 75.0 mm Hg 05/04/22 09:36 ABG pO2 55.4 mm Hg (80.0-90.0) L 05/04/22 09:36 ABG HCO3 43.7 mmol/L (20.0-26.0) H 05/04/22 09:36 ABG O2 Saturation 87.4 % (95.0-99.0) L 05/04/22 09:36 ABG O2 Content 11.0 (0.0-44) 05/04/22 09:36 ABG Base Excess 16.1 mmol/L (-2.0-3.0) H 05/04/22 09:36 ABG Hemoglobin 9.1 gm/dl (14.0-18.0) L 05/04/22 09:36 ABG Carboxyhemoglobin 1.5 % (0.0-5.0) 05/04/22 09:36 ABG Methemoglobin 0.4 % (0.0-1.5) 05/04/22 09:36 Oxyhemoglobin 85.7 % (95.0-99.0) L 05/04/22 09:36 FiO2 30 % 05/04/22 09:36 Sodium 137 mmol/L (137-145) 05/18/22 05:41 Potassium 4.5 mmol/L (3.6-5.0) D 05/18/22 05:41 Chloride 97.9 mmol/L (98-107) L 05/18/22 05:41 Carbon Dioxide 30 mmol/L (22-30) 05/18/22 05:41 Anion Gap 14 mmol/L 05/18/22 05:41 BUN 23 mg/dL (9-20) H 05/18/22 05:41 Creatinine < 0.2 mg/dL (0.8-1.3) L 05/18/22 05:41 Estimated GFR > 60 ml/min 05/18/22 05:41 BUN/Creatinine Ratio 115 % 05/18/22 05:41 Glucose 128 mg/dL (75-100) H 05/18/22 05:41 POC Glucose 123 mg/dL (70-105) H 05/17/22 21:03 Lactic Acid 1.90 mmol/L (0.7-2.0) 04/02/22 19:39 Calcium 8.5 mg/dL (8.4-10.2) 05/18/22 05:41 Phosphorus 2.80 mg/dL (2.5-4.5) 05/17/22 03:41 Magnesium 1.70 mg/dL (1.7-2.3) 05/17/22 03:41 Total Bilirubin 0.80 mg/dL (0.1-1.2) 04/02/22 19:39 AST 15 units/L (5-40) 04/02/22 19:39 ALT 9 units/L (7-56) 04/02/22 19:39 Alkaline Phosphatase 43 units/L (35-129) 04/02/22 19:39 Total Creatine Kinase 46 units/L (55-170) L 04/08/22 17:47 CK-MB (CK-2) 2.6 ng/mL (0.0-4.0) 04/08/22 17:47 CK-MB (CK-2) Rel Index 5.6 (0-4) H 04/08/22 17:47 Troponin T 0.031 ng/mL (0.00-0.029) H 04/08/22 17:47 C-Reactive Protein 31.20 mg/dL (0.00-1.30) H 05/17/22 03:41 Total Protein 4.6 g/dL (6.3-8.2) L 04/02/22 19:39 Albumin 2.7 g/dL (3.9-5) L 04/02/22 19:39 Albumin/Globulin Ratio 1.4 % 04/02/22 19:39 Triglycerides 80 mg/dL (2-149) 04/02/22 19:39 Cholesterol 94 mg/dL (50-199) 04/02/22 19:39 LDL Cholesterol Direct 27 mg/dL (50-130) L 04/02/22 19:39 HDL Cholesterol 47 mg/dL (40-59) 04/02/22 19:39 Cholesterol/HDL Ratio 2.00 % 04/02/22 19:39 Procalcitonin 1.30 ng/mL (<0.15) 05/17/22 03:41 Urine Color Aracely (Yellow) 05/18/22 03:50 Urine Turbidity Clear (Clear) 05/18/22 03:50 Urine pH 5.0 (5.0-7.0) 05/18/22 03:50 Ur Specific [place] 1.030 (1.003-1.030) 05/18/22 03:50 Urine Protein 30 mg/dl mg/dL (Negative) 05/18/22 03:50 Urine Glucose (UA) Neg mg/dL (Negative) 05/18/22 03:50 Urine Ketones Tr mg/dL (Negative) 05/18/22 03:50 Urine Blood Neg (Negative) 05/18/22 03:50 Urine Nitrite Neg (Negative) 05/18/22 03:50 Urine Bilirubin Neg (Negative) 05/18/22 03:50 Urine Urobilinogen < 2.0 mg/dL (<2.0) 05/18/22 03:50 Ur Leukocyte Esterase Neg (Negative) 05/18/22 03:50 Urine WBC (Auto) 1.0 /HPF (0.0-6.0) 05/18/22 03:50 Urine RBC (Auto) 1.0 /HPF (0.0-6.0) 05/18/22 03:50 U Epithel Cells (Auto) 2.0 /HPF (0-13.0) 05/18/22 03:50 Urine Bacteria (Auto) 1+ /HPF (Negative) 05/18/22 03:50 Hyaline Casts 1 /LPF 04/05/22 17:45 Urine Mucus Few /HPF 05/18/22 03:50 Nasal Screen MRSA (PCR) Negative (Negative) 04/05/22 12:37 Vancomycin Trough 6.0 ug/mL (5.0-20.0) 04/05/22 18:53 Coronavirus (PCR) Negative (Negative) 04/07/22 14:52 Microbiology: Microbiology 05/17/22 17:04 Peripheral/Venous Blood Culture - Preliminary Culture in Progress 05/17/22 17:04 Peripheral/Venous Blood Culture - Preliminary Culture in Progress 05/15/22 04:52 Peripheral/Venous Blood Culture - Preliminary NO GROWTH AFTER 48 HOURS 05/15/22 04:24 Peripheral/Venous Blood Culture - Preliminary NO GROWTH AFTER 48 HOURS Perez/IV: Voiding Method Condom Catheter Active Medications - Current Medications Current Medications: Generic Name Dose Route Start Last Admin Trade Name Freq PRN Reason Stop Dose Admin Acetaminophen 650 mg 04/02/22 23:53 05/17/22 15:47 Acetaminophen 325 Mg Tab PO 650 mg Q6H PRN Administration Pain MILD(1-3)/Fever >100.5/FAITH Acetylcysteine 200 mg 05/04/22 20:00 05/17/22 20:57 Acetylcysteine 20% 200 Mg/1 Ml *For Inhalation Use* INHALATION 200 mg Q12HRT SEGUNDO Administration Albuterol 2.5 mg 05/05/22 20:00 05/17/22 20:57 Albuterol 2.5 Mg/3 Ml Nebu IH 2.5 mg Q12HRT SEGUNDO Administration Bisacodyl 10 mg 04/07/22 09:44 04/12/22 10:06 Bisacodyl 10 Mg Rect Supp AL 10 mg QDAY PRN Administration Constipation Docusate Sodium 100 mg 05/17/22 22:00 05/17/22 21:50 Docusate Sodium 100 Mg/10 Ml Oral Liqd PO 100 mg BID SEGUNDO Administration Famotidine 20 mg 04/06/22 10:00 05/17/22 21:50 Famotidine 20 Mg Tab FEEDTUBE 20 mg BID SEGUNDO Administration Fentanyl 50 mcg 04/04/22 15:56 05/18/22 00:17 Fentanyl 100 Mcg/2 Ml Inj IV 50 mcg Q2HR PRN Administration For CPOT of greater than 3 Heparin Sodium (Porcine) 5,000 unit 04/03/22 06:00 05/18/22 06:48 Heparin 5,000 Unit/1 Ml Vial SUB-Q 5,000 unit Q8HR SEGUNDO Administration Cefepime HCl 2 gm in 100 mls @ 200 mls/hr 05/17/22 10:00 05/18/22 02:40 Cefepime/Ns 2 Gm/100 Ml IV 200 mls/hr Q8H SEGUNDO Administration Protocol Vancomycin HCl 1 gm in 250 mls @ 167.007 mls/hr 05/17/22 22:00 05/17/22 21:49 Vancomycin/Ns 1 Gm/250 Ml IV 167.007 mls/hr Q12H SEGUNDO Administration Insulin Human Lispro 0 unit 05/05/22 06:00 05/18/22 06:48 Insulin Lispro 100 Unit/Ml SUB-Q Not Given Q8HR SEGUNDO Protocol Magnesium Hydroxide 30 ml 04/02/22 23:53 Magnesium Hydroxide (Mom) Oral Liqd Udc PO Q4H PRN Constipation Metoprolol Tartrate 12.5 mg 05/03/22 13:00 05/18/22 06:48 Metoprolol Tartrate 25 Mg Tab FEEDTUBE Not Given Q6HR SEGUNDO Ondansetron HCl 4 mg 04/02/22 23:53 Ondansetron 4 Mg/2 Ml Inj IV Q8H PRN Nausea And Vomiting Quetiapine Fumarate 50 mg 05/13/22 11:00 05/17/22 21:50 Quetiapine 100 Mg Tab FEEDTUBE 50 mg BID SEGUNDO Administration Scopolamine 1 each 05/12/22 09:00 05/15/22 09:07 Scopolamine Transdermal Patch 72 Hr TD 1 each Q3D SEGUNDO Administration Senna 8.8 mg 05/16/22 22:00 05/17/22 21:50 Sennosides Oral Liqd 8.8 Mg/5 Ml Oral Liqd PO 8.8 mg QHS SEGUNDO Administration Sodium Chloride 10 ml 04/03/22 10:00 05/17/22 21:51 Sodium Chloride 0.9% 10 Ml Flush Syringe IV 10 ml BID SEGUNDO Administration Sodium Chloride 10 ml 04/02/22 23:53 05/16/22 05:10 Sodium Chloride 0.9% 10 Ml Flush Syringe IV 10 ml PRN PRN Administration LINE FLUSH Nutrition/Malnutrition Assess - Dietary Evaluation Nutrition/Malnutrition Findings: Nutrition Notes Start: 04/04/22 13:13 Freq: Status: Active Protocol: Document 05/17/22 18:11 BRIGITTE (Rec: 05/17/22 18:20 BRIGITTE [id number]) Nutrition Notes Need for Assessment generated from: MD Order Current Diagnosis Sepsis,Respiratory Failure Other Pertinent Diagnosis ALS, pneu Current Diet TF - Vital AF 1.2 at 50ml/hr Labs/Tests Na 132 BUN 22 CRP 31.2 Pertinent Medications [place] Height 5 ft 4.8 in Weight 48.6 kg [place] Body Weight (kg) 61.27 BMI 17.9 Weight change and time frame Current wt obtained from bed scale Weight Status Underweight Subjective/Other Information RD consulted for malnutrition and to evaluate micronutrients /kcal. Pt remains on vent support. Pt tolerating TF; last BM reported on 05/15. Burn Absent Trauma Absent #1 Nutrition Diagnosis Inadequate oral intake Diagnosis Progress(for reassessment Continues documentation) Is patient on ventilator? Yes Is Patient Ambulatory and/or Out of Bed No REE-([facility]-confined to bed) 1498.320 Kcal/Kg value to use for calculation 40 Approximate Energy Requirements Using 1944 kcal/Kg Calculation Used for Recommendations Kcal/kg Additional Notes Pro needs 1.5-2g/k-97/day Fluid needs 1ml/kcal Nutrition Intervention Nutrition Support: Change TF formula to Osmolite 1.5 at 55ml/hr with 150ml water flush q4h. (Pt needs more calories for wt gain) Kcal 1,980 Protein (gm) 83 Carbohydrates (gm) 269 Fat (gm) 65 Fluid (mL) 1,006 Fiber (gm) 0 Goal #1 TF tolerance Goal #2 TF to meet 100% energy and pro needs Goal #3 Wt maintenance and/or gain Follow-Up By: 05/19/22 Additional Comments F/U: TF formula change/ tolerance, vent status
--- NOTE | 2022-05-14 19:07 | Progress Note ---
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 target blood glucose 140-180 mg/dL. Avoid hypoglycemia -Continue enteric nutritional support, bowel regimen -VTE prophylaxis- Heparin -Avoid nephrotoxins and renally dose all medications -Stress ulcer prophylaxis- Famotidine -Mobility, frequent turning, off loading per facility protocol to prevent pressure ulcers -Maintain sleep wake cycle, avoid benzodiazepines. -Limit delirium CONDITION:CRITICAL PROGNOSIS: GUARDED CODE STATUS; FULL CODE The high probability of a clinically significant, sudden or life threatening deterioration of the respiratory, cardiovascular, neurology system required my full and direct attention, intervention and personal management. The aggregate critical care time was [33] minutes. This time is in addition to time spent performing reported procedures but includes the following: [x] Data Review and interpretation [x] Patient assessment and monitoring of vital signs [x] Documentation [x] Medication orders and management Subjective Date of service: 05/14/22 Principal diagnosis: Ac and ch hypercapnic and hypoxemic Resp Failure; ALS; HCAP; Sepsis; NSTEMI Interval history: Follow up for : Acute and chronic Respiratory Failure with Hypoxia and Hyper capnia 2/2 ALS;Protein calorie malnutrition;Acute Bronchopneumonia; HCAP; Hypotension; NSTEMI; Hypernatremia; Acute Metabolic Encephalopathy; H/o Amyotrophic Lateral Sclerosis Patient seen and examined. Vitals, labs, medications, chart and imaging reviewed. Discussed with respiratory and nursing care staff. s/p trach and PEG. On PEEP 8 and FIO2 45 % No reported fevers, no vomiting, no diarrhea Patient continue to have periods of desaturations on home vent. Home vent setting adjusted and it was determined that patient require 12L to 15L of oxygen to maintain SPO2 goal above 88%. Will continue to optimized patient on home vent for possible discharge home on Tuesday. Objective Vital Signs - 12hr 05/14/22 05/14/22 05/14/22 07:12 08:00 08:10 Temperature 97.5 F L 97.5 F L Pulse Rate 110 H 105 H Pulse Rate [ 111 H Anterior Bilateral Throughout] Pulse Rate [ 105 H Bilateral Throughout] Pulse Rate [ 110 H From Monitor] Respiratory 23 Rate Respiratory 24 Rate [Anterior Bilateral Throughout] Respiratory 24 Rate [Bilateral Throughout] Blood Pressure 100/64 100/64 O2 Sat by Pulse 94 92 Oximetry O2 Sat by Pulse 92 Oximetry [ Assessment] 05/14/22 05/14/22 05/14/22 09:00 10:00 11:00 Temperature Pulse Rate 100 H 105 H 114 H Pulse Rate [ Anterior Bilateral Throughout] Pulse Rate [ Bilateral Throughout] Pulse Rate [ From Monitor] Respiratory 25 H 24 23 Rate Respiratory Rate [Anterior Bilateral Throughout] Respiratory Rate [Bilateral Throughout] Blood Pressure 92/54 97/64 109/64 O2 Sat by Pulse 94 93 Oximetry O2 Sat by Pulse Oximetry [ Assessment] 05/14/22 05/14/22 05/14/22 11:37 11:54 12:00 Temperature Pulse Rate 108 H 107 H 106 H Pulse Rate [ Anterior Bilateral Throughout] Pulse Rate [ Bilateral Throughout] Pulse Rate [ 110 H From Monitor] Respiratory 20 Rate Respiratory Rate [Anterior Bilateral Throughout] Respiratory Rate [Bilateral Throughout] Blood Pressure 109/64 113/69 O2 Sat by Pulse 96 94 Oximetry O2 Sat by Pulse Oximetry [ Assessment] 05/14/22 05/14/22 05/14/22 12:58 13:00 14:00 Temperature 98.0 F Pulse Rate 88 89 Pulse Rate [ Anterior Bilateral Throughout] Pulse Rate [ Bilateral Throughout] Pulse Rate [ From Monitor] Respiratory 22 22 Rate Respiratory Rate [Anterior Bilateral Throughout] Respiratory Rate [Bilateral Throughout] Blood Pressure 95/60 93/60 O2 Sat by Pulse 100 94 Oximetry O2 Sat by Pulse Oximetry [ Assessment] 05/14/22 05/14/22 05/14/22 15:00 15:58 16:00 Temperature 98 F Pulse Rate 90 91 H 91 H Pulse Rate [ Anterior Bilateral Throughout] Pulse Rate [ Bilateral Throughout] Pulse Rate [ 91 H From Monitor] Respiratory 22 23 Rate Respiratory Rate [Anterior Bilateral Throughout] Respiratory Rate [Bilateral Throughout] Blood Pressure 97/61 96/59 96/59 O2 Sat by Pulse 98 99 94 Oximetry O2 Sat by Pulse Oximetry [ Assessment] 05/14/22 05/14/22 05/14/22 16:42 17:00 18:00 Temperature 98.1 F Pulse Rate 103 H 106 H Pulse Rate [ Anterior Bilateral Throughout] Pulse Rate [ Bilateral Throughout] Pulse Rate [ From Monitor] Respiratory 22 23 Rate Respiratory Rate [Anterior Bilateral Throughout] Respiratory Rate [Bilateral Throughout] Blood Pressure 96/59 112/74 O2 Sat by Pulse 98 94 Oximetry O2 Sat by Pulse Oximetry [ Assessment] 05/14/22 18:21 Temperature Pulse Rate 107 H Pulse Rate [ Anterior Bilateral Throughout] Pulse Rate [ Bilateral Throughout] Pulse Rate [ From Monitor] Respiratory Rate Respiratory Rate [Anterior Bilateral Throughout] Respiratory Rate [Bilateral Throughout] Blood Pressure O2 Sat by Pulse Oximetry O2 Sat by Pulse Oximetry [ Assessment] Constitutional: no acute distress, alert, other (resting in bed with mildly increased respiratory effort at rest) Eyes: non-icteric ENT: oropharynx moist, other (+ midline tracheostomy) Neck: supple, no lymphadenopathy, no JVD Effort: mildly labored Ascultation: Bilateral: diminished breath sounds (bases), rhonchi Percussion: Bilateral: not dull Cardiovascular: regular rate and rhythm, other (S1,S2) Gastrointestinal: normoactive bowel sounds, soft, non-tender, non-distended Integumentary: normal Extremities: no cyanosis, no edema, pink and warm, pulses normal Neurologic: pupils equal and round, other (functional quadriplegia) Psychiatric: mood appropriate, affect normal, other CBC and BMP: 05/24/22 04:22 05/24/22 04:22 ABG, PT/INR, D-dimer: ABG ABG pH 7.383 pH Units (7.350-7.450) 05/04/22 09:36 ABG pCO2 75.0 mm Hg 05/04/22 09:36 ABG pO2 55.4 mm Hg (80.0-90.0) L 05/04/22 09:36 ABG O2 Saturation 87.4 % (95.0-99.0) L 05/04/22 09:36 PT/INR, D-dimer PT 13.6 Sec. (12.2-14.9) 04/13/22 04:30 INR 0.94 (0.87-1.13) 04/13/22 04:30 Abnormal lab findings: Abnormal Labs 04/02/22 04/02/22 04/02/22 19:39 19:39 19:39 WBC 14.3 H RBC Hgb Hct MCV 96 H MCHC Plt Count 104 L Lymph % (Auto) Garza % (Auto) Lymph # (Auto) Garza # (Auto) Seg Neutrophils % Seg Neuts % (Manual) 94.0 H Lymphocytes % (Manual) 1.0 L Seg Neutrophils # Seg Neutrophils # Man 13.4 H Lymphocytes # (Manual) 0.1 L PT 15.9 H INR 1.14 H ABG pH ABG pO2 ABG HCO3 ABG O2 Saturation ABG Base Excess ABG Hemoglobin Oxyhemoglobin Sodium 151 H Potassium Chloride Carbon Dioxide BUN Creatinine 0.5 L Glucose POC Glucose Calcium 8.2 L Phosphorus Magnesium 1.60 L Total Creatine Kinase CK-MB (CK-2) Rel Index Troponin T 0.048 H C-Reactive Protein Total Protein 4.6 L Albumin 2.7 L LDL Cholesterol Direct 27 L Urine WBC (Auto) 04/02/22 04/03/22 04/03/22 19:42 05:14 06:30 WBC RBC Hgb Hct MCV MCHC Plt Count Lymph % (Auto) Garza % (Auto) Lymph # (Auto) Garza # (Auto) Seg Neutrophils % Seg Neuts % (Manual) Lymphocytes % (Manual) Seg Neutrophils # Seg Neutrophils # Man Lymphocytes # (Manual) PT INR ABG pH 7.471 H 7.496 H ABG pO2 47.8 L 91.0 H ABG HCO3 30.6 H ABG O2 Saturation 94.4 L ABG Base Excess 6.2 H ABG Hemoglobin 11.0 L 12.8 L Oxyhemoglobin 93.1 L Sodium 149 H Potassium 3.4 L Chloride Carbon Dioxide BUN Creatinine 0.4 L Glucose POC Glucose Calcium Phosphorus Magnesium Total Creatine Kinase CK-MB (CK-2) Rel Index Troponin T C-Reactive Protein Total Protein Albumin LDL Cholesterol Direct Urine WBC (Auto) 04/04/22 04/04/22 04/04/22 04:18 04:18 05:50 WBC 11.8 H RBC Hgb Hct MCV MCHC Plt Count 132 L Lymph % (Auto) Garza % (Auto) Lymph # (Auto) Garza # (Auto) Seg Neutrophils % Seg Neuts % (Manual) Lymphocytes % (Manual) Seg Neutrophils # Seg Neutrophils # Man Lymphocytes # (Manual) PT INR ABG pH 7.517 H ABG pO2 115.5 H ABG HCO3 29.9 H ABG O2 Saturation ABG Base Excess 6.7 H ABG Hemoglobin 12.3 L Oxyhemoglobin Sodium Potassium 3.5 L Chloride Carbon Dioxide 31 H BUN Creatinine 0.3 L Glucose 153 H POC Glucose Calcium Phosphorus 1.40 L Magnesium 1.50 L Total Creatine Kinase CK-MB (CK-2) Rel Index Troponin T C-Reactive Protein 31.60 H Total Protein Albumin LDL Cholesterol Direct Urine WBC (Auto) 04/05/22 04/05/22 04/05/22 02:50 05:25 11:28 WBC RBC Hgb Hct MCV MCHC Plt Count Lymph % (Auto) Garza % (Auto) Lymph # (Auto) Garza # (Auto) Seg Neutrophils % Seg Neuts % (Manual) Lymphocytes % (Manual) Seg Neutrophils # Seg Neutrophils # Man Lymphocytes # (Manual) PT INR ABG pH 7.455 H ABG pO2 50.7 L ABG HCO3 30.5 H ABG O2 Saturation 89.4 L ABG Base Excess 5.9 H ABG Hemoglobin 11.8 L Oxyhemoglobin 88.2 L Sodium Potassium Chloride Carbon Dioxide 32 H BUN Creatinine 0.2 L Glucose 110 H POC Glucose 124 H Calcium 7.9 L Phosphorus Magnesium Total Creatine Kinase CK-MB (CK-2) Rel Index Troponin T C-Reactive Protein Total Protein Albumin LDL Cholesterol Direct Urine WBC (Auto) 04/05/22 04/05/22 04/06/22 17:45 Unknown 04:00 WBC RBC 3.55 L Hgb 11.1 L 11.5 L Hct 33.2 L 35.1 L MCV MCHC Plt Count 113 L 114 L Lymph % (Auto) Garza % (Auto) Lymph # (Auto) Garza # (Auto) Seg Neutrophils % Seg Neuts % (Manual) Lymphocytes % (Manual) Seg Neutrophils # Seg Neutrophils # Man Lymphocytes # (Manual) PT INR ABG pH ABG pO2 ABG HCO3 ABG O2 Saturation ABG Base Excess ABG Hemoglobin Oxyhemoglobin Sodium Potassium Chloride Carbon Dioxide BUN Creatinine Glucose POC Glucose Calcium Phosphorus Magnesium Total Creatine Kinase CK-MB (CK-2) Rel Index Troponin T C-Reactive Protein Total Protein Albumin LDL Cholesterol Direct Urine WBC (Auto) 8.0 H 04/06/22 04/06/22 04/07/22 04:00 08:30 00:04 WBC RBC Hgb Hct MCV MCHC Plt Count Lymph % (Auto) Garza % (Auto) Lymph # (Auto) Garza # (Auto) Seg Neutrophils % Seg Neuts % (Manual) Lymphocytes % (Manual) Seg Neutrophils # Seg Neutrophils # Man Lymphocytes # (Manual) PT INR ABG pH ABG pO2 60.8 L ABG HCO3 30.5 H ABG O2 Saturation 93.3 L ABG Base Excess 4.9 H ABG Hemoglobin 12.4 L Oxyhemoglobin 92.1 L Sodium Potassium 3.0 L Chloride Carbon Dioxide BUN Creatinine < 0.2 L Glucose 130 H POC Glucose 117 H Calcium 8.1 L Phosphorus Magnesium Total Creatine Kinase CK-MB (CK-2) Rel Index Troponin T C-Reactive Protein Total Protein Albumin LDL Cholesterol Direct Urine WBC (Auto) 04/07/22 04/07/22 04/07/22 03:51 03:51 03:51 WBC 14.6 H RBC 3.57 L Hgb 11.1 L Hct 33.2 L MCV MCHC Plt Count 118 L Lymph % (Auto) 4.3 L Garza % (Auto) 8.8 H Lymph # (Auto) 0.6 L Garza # (Auto) 1.3 H Seg Neutrophils % 86.6 H Seg Neuts % (Manual) Lymphocytes % (Manual) Seg Neutrophils # 12.7 H Seg Neutrophils # Man Lymphocytes # (Manual) PT 15.2 H INR ABG pH ABG pO2 ABG HCO3 ABG O2 Saturation ABG Base Excess ABG Hemoglobin Oxyhemoglobin Sodium 133 L Potassium Chloride 96.0 L Carbon Dioxide 31 H BUN Creatinine 0.2 L Glucose 130 H POC Glucose Calcium 8.0 L Phosphorus Magnesium Total Creatine Kinase CK-MB (CK-2) Rel Index Troponin T C-Reactive Protein Total Protein Albumin LDL Cholesterol Direct Urine WBC (Auto) 04/07/22 04/07/22 04/08/22 04:25 09:10 04:49 WBC 16.1 H RBC 3.54 L Hgb 10.9 L Hct 33.3 L MCV MCHC Plt Count Lymph % (Auto) Garza % (Auto) Lymph # (Auto) Garza # (Auto) Seg Neutrophils % Seg Neuts % (Manual) Lymphocytes % (Manual) Seg Neutrophils # Seg Neutrophils # Man Lymphocytes # (Manual) PT INR ABG pH ABG pO2 71.0 L 63.4 L ABG HCO3 31.5 H 40.0 H ABG O2 Saturation 94.9 L ABG Base Excess 5.9 H 13.6 H ABG Hemoglobin 11.3 L 9.0 L Oxyhemoglobin 93.6 L Sodium Potassium Chloride Carbon Dioxide BUN Creatinine Glucose POC Glucose Calcium Phosphorus Magnesium Total Creatine Kinase CK-MB (CK-2) Rel Index Troponin T C-Reactive Protein Total Protein Albumin LDL Cholesterol Direct Urine WBC (Auto) 04/08/22 04/08/22 04/08/22 04:49 09:53 10:25 WBC RBC Hgb Hct MCV MCHC Plt Count Lymph % (Auto) Garza % (Auto) Lymph # (Auto) Garza # (Auto) Seg Neutrophils % Seg Neuts % (Manual) Lymphocytes % (Manual) Seg Neutrophils # Seg Neutrophils # Man Lymphocytes # (Manual) PT INR ABG pH ABG pO2 ABG HCO3 34.7 H ABG O2 Saturation ABG Base Excess 7.9 H ABG Hemoglobin 11.0 L Oxyhemoglobin Sodium 136 L Potassium Chloride 97.7 L Carbon Dioxide 33 H BUN Creatinine 0.2 L Glucose 155 H POC Glucose Calcium Phosphorus Magnesium Total Creatine Kinase CK-MB (CK-2) Rel Index Troponin T 0.030 H C-Reactive Protein Total Protein Albumin LDL Cholesterol Direct Urine WBC (Auto) 04/08/22 04/08/22 04/08/22 11:19 17:47 18:06 WBC RBC Hgb Hct MCV MCHC Plt Count Lymph % (Auto) Garza % (Auto) Lymph # (Auto) Garza # (Auto) Seg Neutrophils % Seg Neuts % (Manual) Lymphocytes % (Manual) Seg Neutrophils # Seg Neutrophils # Man Lymphocytes # (Manual) PT INR ABG pH ABG pO2 ABG HCO3 ABG O2 Saturation ABG Base Excess ABG Hemoglobin Oxyhemoglobin Sodium Potassium Chloride Carbon Dioxide BUN Creatinine Glucose POC Glucose 121 H Calcium Phosphorus Magnesium Total Creatine Kinase 31 L 46 L CK-MB (CK-2) Rel Index 6.4 H 5.6 H Troponin T 0.030 H 0.031 H C-Reactive Protein Total Protein Albumin LDL Cholesterol Direct Urine WBC (Auto) 04/09/22 04/09/22 04/09/22 04:35 04:35 11:24 WBC 11.5 H RBC 3.16 L Hgb 9.9 L Hct 29.4 L MCV MCHC Plt Count 131 L Lymph % (Auto) Garza % (Auto) Lymph # (Auto) Garza # (Auto) Seg Neutrophils % Seg Neuts % (Manual) Lymphocytes % (Manual) Seg Neutrophils # Seg Neutrophils # Man Lymphocytes # (Manual) PT INR ABG pH ABG pO2 ABG HCO3 ABG O2 Saturation ABG Base Excess ABG Hemoglobin Oxyhemoglobin Sodium Potassium Chloride 97.1 L Carbon Dioxide 35 H BUN Creatinine < 0.2 L Glucose 145 H POC Glucose 147 H Calcium Phosphorus Magnesium Total Creatine Kinase CK-MB (CK-2) Rel Index Troponin T C-Reactive Protein Total Protein Albumin LDL Cholesterol Direct Urine WBC (Auto) 04/09/22 04/09/22 04/09/22 13:00 17:32 23:48 WBC RBC Hgb Hct MCV MCHC Plt Count Lymph % (Auto) Garza % (Auto) Lymph # (Auto) Garza # (Auto) Seg Neutrophils % Seg Neuts % (Manual) Lymphocytes % (Manual) Seg Neutrophils # Seg Neutrophils # Man Lymphocytes # (Manual) PT INR ABG pH ABG pO2 66.6 L ABG HCO3 38.2 H ABG O2 Saturation 94.4 L ABG Base Excess 10.7 H ABG Hemoglobin 10.7 L Oxyhemoglobin 92.8 L Sodium Potassium Chloride Carbon Dioxide BUN Creatinine Glucose POC Glucose 143 H 114 H Calcium Phosphorus Magnesium Total Creatine Kinase CK-MB (CK-2) Rel Index Troponin T C-Reactive Protein Total Protein Albumin LDL Cholesterol Direct Urine WBC (Auto) 04/10/22 04/10/22 04/10/22 04:48 04:48 05:34 WBC RBC 2.91 L Hgb 9.1 L Hct 27.7 L MCV 95 H MCHC Plt Count Lymph % (Auto) Garza % (Auto) Lymph # (Auto) Garza # (Auto) Seg Neutrophils % Seg Neuts % (Manual) Lymphocytes % (Manual) Seg Neutrophils # Seg Neutrophils # Man Lymphocytes # (Manual) PT INR ABG pH ABG pO2 ABG HCO3 ABG O2 Saturation ABG Base Excess ABG Hemoglobin Oxyhemoglobin Sodium Potassium Chloride 95.7 L Carbon Dioxide 38 H BUN Creatinine < 0.2 L Glucose 118 H POC Glucose 127 H Calcium Phosphorus Magnesium Total Creatine Kinase CK-MB (CK-2) Rel Index Troponin T C-Reactive Protein Total Protein Albumin LDL Cholesterol Direct Urine WBC (Auto) 04/10/22 04/11/22 04/11/22 23:10 04:15 04:15 WBC 17.2 H RBC 2.98 L Hgb 9.2 L Hct 27.9 L MCV MCHC Plt Count Lymph % (Auto) Garza % (Auto) Lymph # (Auto) Garza # (Auto) Seg Neutrophils % Seg Neuts % (Manual) Lymphocytes % (Manual) Seg Neutrophils # Seg Neutrophils # Man Lymphocytes # (Manual) PT INR ABG pH ABG pO2 ABG HCO3 ABG O2 Saturation ABG Base Excess ABG Hemoglobin Oxyhemoglobin Sodium Potassium Chloride 96.1 L Carbon Dioxide 35 H BUN Creatinine < 0.2 L Glucose 138 H POC Glucose 106 H Calcium 8.3 L Phosphorus Magnesium Total Creatine Kinase CK-MB (CK-2) Rel Index Troponin T C-Reactive Protein Total Protein Albumin LDL Cholesterol Direct Urine WBC (Auto) 04/11/22 04/11/22 04/11/22 05:31 13:18 16:20 WBC RBC Hgb Hct MCV MCHC Plt Count Lymph % (Auto) Garza % (Auto) Lymph # (Auto) Garza # (Auto) Seg Neutrophils % Seg Neuts % (Manual) Lymphocytes % (Manual) Seg Neutrophils # Seg Neutrophils # Man Lymphocytes # (Manual) PT INR ABG pH ABG pO2 57.8 L ABG HCO3 40.5 H ABG O2 Saturation 90.6 L ABG Base Excess 12.6 H ABG Hemoglobin 10.5 L Oxyhemoglobin 89.0 L Sodium Potassium Chloride Carbon Dioxide BUN Creatinine Glucose POC Glucose 129 H 132 H Calcium Phosphorus Magnesium Total Creatine Kinase CK-MB (CK-2) Rel Index Troponin T C-Reactive Protein Total Protein Albumin LDL Cholesterol Direct Urine WBC (Auto) 04/11/22 04/11/22 04/12/22 17:29 23:17 04:00 WBC 17.4 H RBC 2.96 L Hgb 9.0 L Hct 28.0 L MCV 95 H MCHC Plt Count Lymph % (Auto) Garza % (Auto) Lymph # (Auto) Garza # (Auto) Seg Neutrophils % Seg Neuts % (Manual) Lymphocytes % (Manual) Seg Neutrophils # Seg Neutrophils # Man Lymphocytes # (Manual) PT INR ABG pH ABG pO2 ABG HCO3 ABG O2 Saturation ABG Base Excess ABG Hemoglobin Oxyhemoglobin Sodium Potassium Chloride Carbon Dioxide BUN Creatinine Glucose POC Glucose 125 H 151 H Calcium Phosphorus Magnesium Total Creatine Kinase CK-MB (CK-2) Rel Index Troponin T C-Reactive Protein Total Protein Albumin LDL Cholesterol Direct Urine WBC (Auto) 04/12/22 04/12/22 04/12/22 04:00 17:03 23:39 WBC RBC Hgb Hct MCV MCHC Plt Count Lymph % (Auto) Garza % (Auto) Lymph # (Auto) Garza # (Auto) Seg Neutrophils % Seg Neuts % (Manual) Lymphocytes % (Manual) Seg Neutrophils # Seg Neutrophils # Man Lymphocytes # (Manual) PT INR ABG pH ABG pO2 ABG HCO3 ABG O2 Saturation ABG Base Excess ABG Hemoglobin Oxyhemoglobin Sodium Potassium Chloride 97.4 L Carbon Dioxide 37 H BUN Creatinine < 0.2 L Glucose 127 H POC Glucose 106 H 107 H Calcium Phosphorus Magnesium Total Creatine Kinase CK-MB (CK-2) Rel Index Troponin T C-Reactive Protein Total Protein Albumin LDL Cholesterol Direct Urine WBC (Auto) 04/13/22 04/13/22 04/13/22 04:30 04:30 17:39 WBC 14.1 H RBC 2.66 L Hgb 8.4 L Hct 25.5 L MCV 96 H MCHC Plt Count Lymph % (Auto) Garza % (Auto) Lymph # (Auto) Garza # (Auto) Seg Neutrophils % Seg Neuts % (Manual) Lymphocytes % (Manual) Seg Neutrophils # Seg Neutrophils # Man Lymphocytes # (Manual) PT INR ABG pH ABG pO2 ABG HCO3 ABG O2 Saturation ABG Base Excess ABG Hemoglobin Oxyhemoglobin Sodium Potassium Chloride 93.9 L Carbon Dioxide 39 H BUN Creatinine < 0.2 L Glucose POC Glucose 134 H Calcium Phosphorus 1.90 L Magnesium Total Creatine Kinase CK-MB (CK-2) Rel Index Troponin T C-Reactive Protein Total Protein Albumin LDL Cholesterol Direct Urine WBC (Auto) 04/14/22 04/14/22 04/14/22 05:03 05:03 09:10 WBC 15.6 H RBC 3.02 L Hgb 9.3 L Hct 28.8 L MCV 95 H MCHC Plt Count Lymph % (Auto) Garza % (Auto) Lymph # (Auto) Garza # (Auto) Seg Neutrophils % Seg Neuts % (Manual) Lymphocytes % (Manual) Seg Neutrophils # Seg Neutrophils # Man Lymphocytes # (Manual) PT INR ABG pH ABG pO2 66.9 L ABG HCO3 44.5 H ABG O2 Saturation ABG Base Excess 17.2 H ABG Hemoglobin 8.1 L Oxyhemoglobin 94.8 L Sodium Potassium Chloride 93.8 L Carbon Dioxide 42 H* BUN Creatinine < 0.2 L Glucose 117 H POC Glucose Calcium Phosphorus Magnesium Total Creatine Kinase CK-MB (CK-2) Rel Index Troponin T C-Reactive Protein Total Protein Albumin LDL Cholesterol Direct Urine WBC (Auto) 04/15/22 04/15/22 04/16/22 04:44 04:44 04:16 WBC 13.0 H 12.6 H RBC 3.19 L 3.09 L Hgb 9.6 L 9.5 L Hct 30.2 L 29.1 L MCV 95 H MCHC Plt Count 456 H Lymph % (Auto) Garza % (Auto) Lymph # (Auto) Garza # (Auto) Seg Neutrophils % Seg Neuts % (Manual) Lymphocytes % (Manual) Seg Neutrophils # Seg Neutrophils # Man Lymphocytes # (Manual) PT INR ABG pH ABG pO2 ABG HCO3 ABG O2 Saturation ABG Base Excess ABG Hemoglobin Oxyhemoglobin Sodium Potassium Chloride 95.5 L Carbon Dioxide 37 H BUN Creatinine < 0.2 L Glucose POC Glucose Calcium Phosphorus Magnesium Total Creatine Kinase CK-MB (CK-2) Rel Index Troponin T C-Reactive Protein Total Protein Albumin LDL Cholesterol Direct Urine WBC (Auto) 04/16/22 04/16/22 04/16/22 04:16 05:00 14:00 WBC RBC Hgb Hct MCV MCHC Plt Count Lymph % (Auto) Garza % (Auto) Lymph # (Auto) Garza # (Auto) Seg Neutrophils % Seg Neuts % (Manual) Lymphocytes % (Manual) Seg Neutrophils # Seg Neutrophils # Man Lymphocytes # (Manual) PT INR ABG pH 7.324 L ABG pO2 55.6 L ABG HCO3 45.3 H ABG O2 Saturation 87.1 L ABG Base Excess 16.6 H ABG Hemoglobin 8.6 L Oxyhemoglobin 85.7 L Sodium Potassium Chloride 97.6 L Carbon Dioxide 36 H BUN Creatinine < 0.2 L Glucose 109 H POC Glucose 120 H Calcium Phosphorus Magnesium Total Creatine Kinase CK-MB (CK-2) Rel Index Troponin T C-Reactive Protein Total Protein Albumin LDL Cholesterol Direct Urine WBC (Auto) 04/17/22 04/17/22 04/17/22 04:36 04:36 04:57 WBC 14.4 H RBC 3.08 L Hgb 9.4 L Hct 29.0 L MCV MCHC Plt Count Lymph % (Auto) Garza % (Auto) Lymph # (Auto) Garza # (Auto) Seg Neutrophils % Seg Neuts % (Manual) Lymphocytes % (Manual) Seg Neutrophils # Seg Neutrophils # Man Lymphocytes # (Manual) PT INR ABG pH ABG pO2 ABG HCO3 ABG O2 Saturation ABG Base Excess ABG Hemoglobin Oxyhemoglobin Sodium Potassium Chloride 95.9 L Carbon Dioxide 39 H BUN Creatinine < 0.2 L Glucose 140 H POC Glucose 137 H Calcium 8.3 L Phosphorus Magnesium Total Creatine Kinase CK-MB (CK-2) Rel Index Troponin T C-Reactive Protein Total Protein Albumin LDL Cholesterol Direct Urine WBC (Auto) 04/17/22 04/17/22 04/18/22 09:15 18:01 04:20 WBC 11.2 H RBC 3.00 L Hgb 9.3 L Hct 28.6 L MCV 95 H MCHC Plt Count Lymph % (Auto) Garza % (Auto) Lymph # (Auto) Garza # (Auto) Seg Neutrophils % Seg Neuts % (Manual) Lymphocytes % (Manual) Seg Neutrophils # Seg Neutrophils # Man Lymphocytes # (Manual) PT INR ABG pH 7.345 L ABG pO2 ABG HCO3 48.2 H ABG O2 Saturation ABG Base Excess 19.2 H ABG Hemoglobin 9.7 L Oxyhemoglobin Sodium Potassium Chloride Carbon Dioxide BUN Creatinine Glucose POC Glucose 129 H Calcium Phosphorus Magnesium Total Creatine Kinase CK-MB (CK-2) Rel Index Troponin T C-Reactive Protein Total Protein Albumin LDL Cholesterol Direct Urine WBC (Auto) 04/18/22 04/18/22 04/18/22 04:20 17:35 23:50 WBC RBC Hgb Hct MCV MCHC Plt Count Lymph % (Auto) Garza % (Auto) Lymph # (Auto) Garza # (Auto) Seg Neutrophils % Seg Neuts % (Manual) Lymphocytes % (Manual) Seg Neutrophils # Seg Neutrophils # Man Lymphocytes # (Manual) PT INR ABG pH ABG pO2 ABG HCO3 ABG O2 Saturation ABG Base Excess ABG Hemoglobin Oxyhemoglobin Sodium Potassium Chloride 96.8 L Carbon Dioxide 43 H* BUN 22 H Creatinine < 0.2 L Glucose 137 H POC Glucose 128 H 123 H Calcium 8.2 L Phosphorus Magnesium Total Creatine Kinase CK-MB (CK-2) Rel Index Troponin T C-Reactive Protein Total Protein Albumin LDL Cholesterol Direct Urine WBC (Auto) 04/19/22 04/19/22 04/19/22 04:08 04:08 08:50 WBC 16.8 H RBC 3.18 L Hgb 9.8 L Hct 30.1 L MCV 95 H MCHC Plt Count Lymph % (Auto) Garza % (Auto) Lymph # (Auto) Garza # (Auto) Seg Neutrophils % Seg Neuts % (Manual) Lymphocytes % (Manual) Seg Neutrophils # Seg Neutrophils # Man Lymphocytes # (Manual) PT INR ABG pH ABG pO2 56.0 L ABG HCO3 47.1 H ABG O2 Saturation 93.3 L ABG Base Excess 20.1 H ABG Hemoglobin 8.0 L Oxyhemoglobin 91.8 L Sodium Potassium Chloride 96.2 L Carbon Dioxide 40 H BUN 24 H Creatinine < 0.2 L Glucose 125 H POC Glucose Calcium 8.3 L Phosphorus Magnesium Total Creatine Kinase CK-MB (CK-2) Rel Index Troponin T C-Reactive Protein Total Protein Albumin LDL Cholesterol Direct Urine WBC (Auto) 04/19/22 04/20/22 04/20/22 12:02 00:40 04:49 WBC 14.7 H RBC 3.36 L Hgb 10.3 L Hct 32.0 L MCV 95 H MCHC Plt Count Lymph % (Auto) Garza % (Auto) Lymph # (Auto) Garza # (Auto) Seg Neutrophils % Seg Neuts % (Manual) Lymphocytes % (Manual) Seg Neutrophils # Seg Neutrophils # Man Lymphocytes # (Manual) PT INR ABG pH ABG pO2 ABG HCO3 ABG O2 Saturation ABG Base Excess ABG Hemoglobin Oxyhemoglobin Sodium Potassium Chloride Carbon Dioxide BUN Creatinine Glucose POC Glucose 124 H 140 H Calcium Phosphorus Magnesium Total Creatine Kinase CK-MB (CK-2) Rel Index Troponin T C-Reactive Protein Total Protein Albumin LDL Cholesterol Direct Urine WBC (Auto) 04/20/22 04/20/22 04/21/22 05:36 11:40 04:05 WBC RBC Hgb Hct MCV MCHC Plt Count Lymph % (Auto) Garza % (Auto) Lymph # (Auto) Garza # (Auto) Seg Neutrophils % Seg Neuts % (Manual) Lymphocytes % (Manual) Seg Neutrophils # Seg Neutrophils # Man Lymphocytes # (Manual) PT INR ABG pH ABG pO2 ABG HCO3 ABG O2 Saturation ABG Base Excess ABG Hemoglobin Oxyhemoglobin Sodium Potassium Chloride 93.4 L Carbon Dioxide 40 H BUN 25 H Creatinine < 0.2 L Glucose 122 H POC Glucose 125 H 128 H Calcium Phosphorus Magnesium Total Creatine Kinase CK-MB (CK-2) Rel Index Troponin T C-Reactive Protein Total Protein Albumin LDL Cholesterol Direct Urine WBC (Auto) 04/21/22 04/22/22 04/22/22 10:31 05:03 05:03 WBC 12.6 H 12.7 H RBC 2.83 L 2.96 L Hgb 8.6 L 9.0 L Hct 26.9 L 28.0 L MCV 95 H 95 H MCHC Plt Count Lymph % (Auto) Garza % (Auto) Lymph # (Auto) Garza # (Auto) Seg Neutrophils % Seg Neuts % (Manual) Lymphocytes % (Manual) Seg Neutrophils # Seg Neutrophils # Man Lymphocytes # (Manual) PT INR ABG pH ABG pO2 ABG HCO3 ABG O2 Saturation ABG Base Excess ABG Hemoglobin Oxyhemoglobin Sodium Potassium Chloride 93.9 L Carbon Dioxide 43 H* BUN 23 H Creatinine < 0.2 L Glucose 137 H POC Glucose Calcium Phosphorus Magnesium Total Creatine Kinase CK-MB (CK-2) Rel Index Troponin T C-Reactive Protein Total Protein Albumin LDL Cholesterol Direct Urine WBC (Auto) 04/22/22 04/23/22 04/24/22 08:34 09:40 04:29 WBC 14.4 H RBC 2.74 L Hgb 8.4 L Hct 25.7 L MCV MCHC Plt Count Lymph % (Auto) Garza % (Auto) Lymph # (Auto) Garza # (Auto) Seg Neutrophils % Seg Neuts % (Manual) Lymphocytes % (Manual) Seg Neutrophils # Seg Neutrophils # Man Lymphocytes # (Manual) PT INR ABG pH ABG pO2 54.1 L 56.8 L ABG HCO3 48.5 H 49.0 H ABG O2 Saturation 92.1 L 90.9 L ABG Base Excess 20.9 H 20.8 H ABG Hemoglobin 9.0 L 8.4 L Oxyhemoglobin 90.6 L 89.5 L Sodium Potassium Chloride Carbon Dioxide BUN Creatinine Glucose POC Glucose Calcium Phosphorus Magnesium Total Creatine Kinase CK-MB (CK-2) Rel Index Troponin T C-Reactive Protein Total Protein Albumin LDL Cholesterol Direct Urine WBC (Auto) 04/24/22 04/25/22 04/26/22 04:29 09:00 04:22 WBC RBC 2.88 L Hgb 8.9 L Hct 26.8 L MCV MCHC Plt Count Lymph % (Auto) Garza % (Auto) Lymph # (Auto) Garza # (Auto) Seg Neutrophils % Seg Neuts % (Manual) Lymphocytes % (Manual) Seg Neutrophils # Seg Neutrophils # Man Lymphocytes # (Manual) PT INR ABG pH 7.457 H ABG pO2 66.7 L ABG HCO3 42.6 H ABG O2 Saturation ABG Base Excess 15.3 H ABG Hemoglobin 8.8 L Oxyhemoglobin 94.1 L Sodium Potassium Chloride 90.7 L Carbon Dioxide 40 H BUN Creatinine < 0.2 L Glucose 133 H POC Glucose Calcium Phosphorus Magnesium Total Creatine Kinase CK-MB (CK-2) Rel Index Troponin T C-Reactive Protein Total Protein Albumin LDL Cholesterol Direct Urine WBC (Auto) 04/26/22 04/29/22 04/29/22 04:22 04:18 04:18 WBC 13.5 H RBC 2.96 L Hgb 8.9 L Hct 27.7 L MCV MCHC Plt Count Lymph % (Auto) Garza % (Auto) Lymph # (Auto) Garza # (Auto) Seg Neutrophils % Seg Neuts % (Manual) Lymphocytes % (Manual) Seg Neutrophils # Seg Neutrophils # Man Lymphocytes # (Manual) PT INR ABG pH ABG pO2 ABG HCO3 ABG O2 Saturation ABG Base Excess ABG Hemoglobin Oxyhemoglobin Sodium Potassium Chloride 93.2 L 95.2 L Carbon Dioxide 37 H 38 H BUN Creatinine < 0.2 L < 0.2 L Glucose 114 H 116 H POC Glucose Calcium Phosphorus Magnesium Total Creatine Kinase CK-MB (CK-2) Rel Index Troponin T C-Reactive Protein Total Protein Albumin LDL Cholesterol Direct Urine WBC (Auto) 05/02/22 05/03/22 05/03/22 04:29 04:02 04:02 WBC 12.9 H 12.3 H RBC 2.82 L 2.83 L Hgb 8.4 L 8.4 L Hct 26.2 L 26.0 L MCV MCHC Plt Count Lymph % (Auto) Garza % (Auto) Lymph # (Auto) Garza # (Auto) Seg Neutrophils % Seg Neuts % (Manual) Lymphocytes % (Manual) Seg Neutrophils # Seg Neutrophils # Man Lymphocytes # (Manual) PT INR ABG pH ABG pO2 ABG HCO3 ABG O2 Saturation ABG Base Excess ABG Hemoglobin Oxyhemoglobin Sodium 134 L Potassium Chloride 90.5 L Carbon Dioxide 38 H BUN 21 H Creatinine < 0.2 L Glucose 126 H POC Glucose Calcium Phosphorus Magnesium Total Creatine Kinase CK-MB (CK-2) Rel Index Troponin T C-Reactive Protein Total Protein Albumin LDL Cholesterol Direct Urine WBC (Auto) 05/03/22 05/03/22 05/04/22 12:02 17:42 09:36 WBC RBC Hgb Hct MCV MCHC Plt Count Lymph % (Auto) Garza % (Auto) Lymph # (Auto) Garza # (Auto) Seg Neutrophils % Seg Neuts % (Manual) Lymphocytes % (Manual) Seg Neutrophils # Seg Neutrophils # Man Lymphocytes # (Manual) PT INR ABG pH ABG pO2 55.4 L ABG HCO3 43.7 H ABG O2 Saturation 87.4 L ABG Base Excess 16.1 H ABG Hemoglobin 9.1 L Oxyhemoglobin 85.7 L Sodium Potassium Chloride Carbon Dioxide BUN Creatinine Glucose POC Glucose 139 H 131 H Calcium Phosphorus Magnesium Total Creatine Kinase CK-MB (CK-2) Rel Index Troponin T C-Reactive Protein Total Protein Albumin LDL Cholesterol Direct Urine WBC (Auto) 05/04/22 05/04/22 05/05/22 17:08 23:10 04:23 WBC 14.4 H RBC 2.75 L Hgb 8.2 L Hct 25.2 L MCV MCHC Plt Count Lymph % (Auto) Garza % (Auto) Lymph # (Auto) Garza # (Auto) Seg Neutrophils % Seg Neuts % (Manual) Lymphocytes % (Manual) Seg Neutrophils # Seg Neutrophils # Man Lymphocytes # (Manual) PT INR ABG pH ABG pO2 ABG HCO3 ABG O2 Saturation ABG Base Excess ABG Hemoglobin Oxyhemoglobin Sodium Potassium Chloride Carbon Dioxide BUN Creatinine Glucose POC Glucose 124 H 115 H Calcium Phosphorus Magnesium Total Creatine Kinase CK-MB (CK-2) Rel Index Troponin T C-Reactive Protein Total Protein Albumin LDL Cholesterol Direct Urine WBC (Auto) 05/05/22 05/05/22 05/06/22 04:23 21:39 05:13 WBC RBC Hgb Hct MCV MCHC Plt Count Lymph % (Auto) Garza % (Auto) Lymph # (Auto) Garza # (Auto) Seg Neutrophils % Seg Neuts % (Manual) Lymphocytes % (Manual) Seg Neutrophils # Seg Neutrophils # Man Lymphocytes # (Manual) PT INR ABG pH ABG pO2 ABG HCO3 ABG O2 Saturation ABG Base Excess ABG Hemoglobin Oxyhemoglobin Sodium Potassium Chloride 91.3 L Carbon Dioxide 38 H BUN 23 H Creatinine < 0.2 L Glucose 128 H POC Glucose 141 H 136 H Calcium Phosphorus Magnesium Total Creatine Kinase CK-MB (CK-2) Rel Index Troponin T C-Reactive Protein Total Protein Albumin LDL Cholesterol Direct Urine WBC (Auto) 05/07/22 05/07/22 05/08/22 05:29 22:15 05:48 WBC RBC Hgb Hct MCV MCHC Plt Count Lymph % (Auto) Garza % (Auto) Lymph # (Auto) Garza # (Auto) Seg Neutrophils % Seg Neuts % (Manual) Lymphocytes % (Manual) Seg Neutrophils # Seg Neutrophils # Man Lymphocytes # (Manual) PT INR ABG pH ABG pO2 ABG HCO3 ABG O2 Saturation ABG Base Excess ABG Hemoglobin Oxyhemoglobin Sodium Potassium Chloride Carbon Dioxide BUN Creatinine Glucose POC Glucose 125 H 142 H 122 H Calcium Phosphorus Magnesium Total Creatine Kinase CK-MB (CK-2) Rel Index Troponin T C-Reactive Protein Total Protein Albumin LDL Cholesterol Direct Urine WBC (Auto) 05/08/22 05/08/22 05/09/22 14:04 21:48 15:15 WBC RBC 2.61 L Hgb 7.7 L Hct 23.2 L MCV MCHC Plt Count Lymph % (Auto) 8.1 L Garza % (Auto) Lymph # (Auto) 0.9 L Garza # (Auto) Seg Neutrophils % 86.1 H Seg Neuts % (Manual) Lymphocytes % (Manual) Seg Neutrophils # 9.2 H Seg Neutrophils # Man Lymphocytes # (Manual) PT INR ABG pH ABG pO2 ABG HCO3 ABG O2 Saturation ABG Base Excess ABG Hemoglobin Oxyhemoglobin Sodium Potassium Chloride Carbon Dioxide BUN Creatinine Glucose POC Glucose 112 H 107 H Calcium Phosphorus Magnesium Total Creatine Kinase CK-MB (CK-2) Rel Index Troponin T C-Reactive Protein Total Protein Albumin LDL Cholesterol Direct Urine WBC (Auto) 05/09/22 05/09/22 05/09/22 15:15 15:39 21:15 WBC RBC Hgb Hct MCV MCHC Plt Count Lymph % (Auto) Garza % (Auto) Lymph # (Auto) Garza # (Auto) Seg Neutrophils % Seg Neuts % (Manual) Lymphocytes % (Manual) Seg Neutrophils # Seg Neutrophils # Man Lymphocytes # (Manual) PT INR ABG pH ABG pO2 ABG HCO3 ABG O2 Saturation ABG Base Excess ABG Hemoglobin Oxyhemoglobin Sodium Potassium Chloride 92.9 L Carbon Dioxide 40 H BUN Creatinine < 0.2 L Glucose 141 H POC Glucose 118 H 112 H Calcium Phosphorus Magnesium Total Creatine Kinase CK-MB (CK-2) Rel Index Troponin T C-Reactive Protein Total Protein Albumin LDL Cholesterol Direct Urine WBC (Auto) 05/10/22 05/12/22 05/13/22 15:14 00:25 04:02 WBC 13.3 H RBC 3.14 L Hgb 8.7 L Hct 28.0 L MCV MCHC 31 L Plt Count Lymph % (Auto) Garza % (Auto) Lymph # (Auto) Garza # (Auto) Seg Neutrophils % Seg Neuts % (Manual) Lymphocytes % (Manual) Seg Neutrophils # Seg Neutrophils # Man Lymphocytes # (Manual) PT INR ABG pH ABG pO2 ABG HCO3 ABG O2 Saturation ABG Base Excess ABG Hemoglobin Oxyhemoglobin Sodium Potassium Chloride Carbon Dioxide BUN Creatinine Glucose POC Glucose 113 H 158 H Calcium Phosphorus Magnesium Total Creatine Kinase CK-MB (CK-2) Rel Index Troponin T C-Reactive Protein Total Protein Albumin LDL Cholesterol Direct Urine WBC (Auto) 05/13/22 05/13/22 05/13/22 04:02 06:32 13:09 WBC RBC Hgb Hct MCV MCHC Plt Count Lymph % (Auto) Garza % (Auto) Lymph # (Auto) Garza # (Auto) Seg Neutrophils % Seg Neuts % (Manual) Lymphocytes % (Manual) Seg Neutrophils # Seg Neutrophils # Man Lymphocytes # (Manual) PT INR ABG pH ABG pO2 ABG HCO3 ABG O2 Saturation ABG Base Excess ABG Hemoglobin Oxyhemoglobin Sodium 135 L Potassium Chloride 91.1 L Carbon Dioxide 40 H BUN 23 H Creatinine < 0.2 L Glucose 139 H POC Glucose 129 H 117 H Calcium Phosphorus Magnesium Total Creatine Kinase CK-MB (CK-2) Rel Index Troponin T C-Reactive Protein Total Protein Albumin LDL Cholesterol Direct Urine WBC (Auto) 05/13/22 05/14/22 05/14/22 21:28 05:44 07:35 WBC RBC Hgb Hct MCV MCHC Plt Count Lymph % (Auto) Garza % (Auto) Lymph # (Auto) Garza # (Auto) Seg Neutrophils % Seg Neuts % (Manual) Lymphocytes % (Manual) Seg Neutrophils # Seg Neutrophils # Man Lymphocytes # (Manual) PT INR ABG pH ABG pO2 ABG HCO3 ABG O2 Saturation ABG Base Excess ABG Hemoglobin Oxyhemoglobin Sodium Potassium Chloride Carbon Dioxide BUN Creatinine Glucose POC Glucose 109 H 130 H 125 H Calcium Phosphorus Magnesium Total Creatine Kinase CK-MB (CK-2) Rel Index Troponin T C-Reactive Protein Total Protein Albumin LDL Cholesterol Direct Urine WBC (Auto) 05/14/22 16:26 WBC RBC Hgb Hct MCV MCHC Plt Count Lymph % (Auto) Garza % (Auto) Lymph # (Auto) Garza # (Auto) Seg Neutrophils % Seg Neuts % (Manual) Lymphocytes % (Manual) Seg Neutrophils # Seg Neutrophils # Man Lymphocytes # (Manual) PT INR ABG pH ABG pO2 ABG HCO3 ABG O2 Saturation ABG Base Excess ABG Hemoglobin Oxyhemoglobin Sodium Potassium Chloride Carbon Dioxide BUN Creatinine Glucose POC Glucose 112 H Calcium Phosphorus Magnesium Total Creatine Kinase CK-MB (CK-2) Rel Index Troponin T C-Reactive Protein Total Protein Albumin LDL Cholesterol Direct Urine WBC (Auto) Allied health notes reviewed: RT
[2022-05-14] MEDS: fentaNYL 100 MCG/2 ML INJ IV PRN (22:33)
[2022-05-15] MEDS: METOPROLOL TARTRATE 25 MG TAB FEEDTUBE SCH ×5 (00:53→18:31)
--- NOTE | 2022-05-15 04:20 | XRay Report ---
CHEST 1 VIEW 05/15/2022 3:56 AM INDICATION / CLINICAL INFORMATION: Temp 102.2. COMPARISON: 05/12/2022. FINDINGS: SUPPORT DEVICES: Tracheostomy catheter remains in satisfactory position. HEART / MEDIASTINUM: No significant abnormality. LUNGS / PLEURA: Bilateral pneumonia left greater than right remains with slight improvement on the ri ght. Probable small effusions. No pneumothorax. ADDITIONAL FINDINGS: No significant additional findings. IMPRESSION: Bilateral pneumonia left greater than right with overall slight improvement. Signer Name: Tanmay Cheng MD Signed: 05/15/2022 4:15 AM Workstation Name: [id number]
[2022-05-15] MEDS: INSULIN LISPRO 100 UNIT/ML SUB-Q SCH ×3 (06:35→14:41)
[2022-05-15] MEDS: HEPARIN 5,000 UNIT/1 ML VIAL SUB-Q SCH ×3 (06:35→23:01)
[2022-05-15] MEDS: ALBUTEROL 2.5 MG/3 ML NEBU IH SCH ×2 (07:11→22:03)
[2022-05-15] MEDS: ACETYLCYSTEINE 20% 200 MG/1 ML *FOR INHALATION USE INHALATION SCH ×2 (07:35→22:03)
[2022-05-15] MEDS ORDERED: SODIUM CHLORIDE 0.9% 500 ML 500 ML IV ONE (08:31)
[2022-05-15] MEDS: FAMOTIDINE 20 MG TAB FEEDTUBE SCH ×2 (09:07→23:01)
[2022-05-15] MEDS: SCOPOLAMINE TRANSDERMAL PATCH 72 HR TD SCH (09:07)
[2022-05-15] MEDS: QUEtiapine 100 MG TAB FEEDTUBE SCH ×2 (09:07→23:01)
--- NOTE | 2022-05-15 11:55 | Progress Note ---
Assessment and Plan Assessment and plan: This is a 57-year-old male with known history of ALS, recently hospitalized at [facility] admitted for acute hypoxemic respiratory failure 2/2 pneumonia Hospital Course to Date: 04/03: Intubated and Sedated on versed gtt, RASS-5. CT head/brain noted with no acute intracranial abnormality. Plan to initiated precededx gtt and wean off versed for a RASS goal of 0 to -2. CT chect also reviewed, findings are most consistent with acute bronchopneumonia. Continue empiric IV Abx, vent adjustment per CCM. ID consulted. Continue to F/U on cultures. Titrate pressor for MAP ab ove 65. Medical records requested from [facility]. 04/04: Remains stable on the vent, easily arousable on precedex gtt, not following commands. Plan for SAT/SBT today. PRN analgesia for CPOT greater than 3. Fevers improved, cultures and procal pending. Continue current IV abx, ID also consulted. Remains on low dose pressors, titrate pressors for a MAP above 65. 04/05: Long discussion with family with use of translation phone with CCM regarding goals of care. Family to have meeting amongst themselves and informed care team of decisions. Fentanyl drip added for respiratory distress. Remains on Precedex drip. Antibiotics per ID. Given 2L NS bolus with levophed gtt 04/06: Family discussion with Dr. Grayson for goals of care. CXR shows possible mucus plug, continue CPT as FiO2 is being able to be weaned. Potassium repleted. Weaning fentnyl gtt. 04/07: Ultrasound guided thoracentesis today scheduled, inadequate amount of pleural effusion on so not completed. Patient was started on Levophed overnight which was weaned off this morning however had to be started twice a day. Remain s on fentanyl and Precedex. Cardiology discontinued BB and ACEi in setting of hypotension. 04/08: COVID-19 PCR negative. Routine EEG ordered by cardiology which showed ST changes, cardiology aware. They will continue conservative treatment. Repeat troponins 0.030 which are less than admit of 0.048. Dr. Grayson had a long discussion with with the use of educational sign language interpreter today at bedside and has not made a decision regarding goals of care. Possible consult to surgery for trach/PEG early next week. Continues to require Precedex and fentanyl drip for sedation. Carvedilol/lisinopril discontinued as patient is continuously on Levophed. 04/09: No acute events reported overnight, remains on fentanyl, Precedex and Levophed drips. Dr. Grayson and Dr. Pineda updated family at bedside exte nsively today. Consulted surgery for trach/PEG. COVID-19 PCR negative. 04/10: Patient noted to have desaturation episodes, FiO2 increased slightly to 35%. Will add Mucomyst. Remains on fentanyl and Precedex. Off of Levophed. Surgery consulted for trach/PEG. 04/11: FiO2 increased over night likely related to hypoxia, continues on fent gtt, weaning precedex gtt as he is also on Seroquel. Will d/w CCM re scheduled or prn oxycodone 04/12: Periods of hypoxia and tachycardia this am. Symptoms improved post deep suction and tracheal lavage, Repeat CXR noted with no significant change. Continue CPT and mucomyst. Plan for possible trach/PEG tomorrow by general surgery. 04/13: Remains stable on the vent. Patient is wake and tracking but does not follow simple commands. No report of hypoxia from overnight, continue CPT and mucomyst. Plan for track and PEG today by General Surgery. Plan for LTAC placement post procedure, case management to arrange. 04/14: VIRGILIO overnight, Trach and PEG postponed for today by general surgery. Plan for LTAC placement post procedure, case management to arrange. 04/15: S/p Trach and PEG. Up to 80% FiO2 this am, this am CXR noted suggesting possible mucus plug. D/W [facility] plan for bronch today. Continue CPT and mucomyst. Plan of care thoroughly discussed with patient's and son (who translated for ) at the bedside. Per , forestry and wildlife manager had already discussed the risks and benefits of the procedure yesterday. She verbalized understanding and agreed with procedure and current care plan, consent signed. Okay to use PEG-tube for meds this am, resume TF once okay by general Surgery. Case management to arrange LTAC placement. 04/16: s/p Bronchocopy by [facility]. FiO2 down to 60%, angela 10 this am. This am CXR with moderate improvement. Continue CPT and mucomyst, wean Fio2 as tolerated for SPO2 above 92%. Patient is tolerating TF, advance to goal as ordered. Possible LTAC placement, case management to arrange. 04/17: VIRGILIO overnight. remains stable on the vent, recent CXR and this am ABG noted. Continue CPT and mucomyst, wean Fio2 as tolerated. 04/18: Remains stable on the vent, Fio2 down to 55% and peep of 8 this am. Continue to wean as tolerated, CPT, and mucomyst. Dsiposition- LTAC placement, case management to arrange. 04/19: No acute events overnight. Continue current management. 04/20: No acute events overnight, continue current management 04/21: Patient had chest ultrasound which showed trace pleural effusions, chest x-ray improved after the addition of Mucomyst yesterday. FiO2 55-65%. No acute events overnight. more interactive today. 04/22: Seroquel changed to BID, FiO2 was increased to 60%. RT increased FIO2 to 100 d/t desaturation into the 80s but was able to wean down. CCM increased PEEP and decreased FiO2. 04/23: CCM increase PEEP, no acute events reported overnight. 04/24: Spoke to RT about decreasing FiO2 as tolerated. No acute events reported overnight. Continue supportive management. 04/25: Weaning as tolerated. no acute events overnight. RT to attempt CPAP again today 04/26: VIRGILIO overnight. Patient failed PSV trial again this morning. Continue supportive management and daily PST trial. 04/27: Patient failed PSV trial again this am due to episodes of apnea. Continue daily PSV trial as tolerated. Case management to arrange LTAC placement 04/28: Remains stable. Continue daily PSV trial as tolerated. Awaiting approval for LTAC 04/29: VIRGILIO overnight. Continue daily PSV trial. Awaiting approval for LTAC, case management to arrange. 04/30: Patient continue to fail PSV trial. Per case management patient was denied for LTAC, now possible SNF placement. Case managemen to arrange. Continue supportive measures and daily PSV trial as tolerated. 05/01: VIRGILIO overnight. Continue supportive measures and daily PSV trial as tolerated. Possible SNF placement. 05/02: Continue supportive measures and daily PSV trial as tolerated. Possible SNF placement, case management to arrange 05/03: no acute events overnight, CM arranging home vent setup. Family declined SNF. 05/04: RN/RT reports thin secretions, increase in FiO2 for decreased oxygen on ABG. No acute events overnight. 05/05: Family scheduled for teaching session today at 2pm. Increase in FiO2 overnight to 45%. Awaiting vent setup for home care for ventilation secondary to tracheostomy. 05/06: No acute events reported overnight, T-max 100.9. FiO2 45%. Awaiting discharge home with vent when teaching is completed 05/07: No acute events reported overnight, Awaiting discharge home with vent when teaching is completed 05/08: No acute events reported overnight, Awaiting discharge home with vent when teaching is completed 05/09: no acute events reported overnight. Ordered routine labs today. Family continuing with vent training. Anticipate discharge home this week possibly on Tuesday. 05/10: VIRGILIO overnight. Continue current supportive measures and family training at the bedside. Plan for discharge home tomorrow. 05/11: Discharge home today. supervisor electrolytic tinning at 12pm 05/12: Discharge cancelled yesterday. Patient desated on home vent at max setting. Home vent is not sufficient to support patient's ventilation need. D/w [facility], Dr. Valdivia, who recommend SNF placement at this time. Patient's family notified at the bedside. All questions and concerns were address at this time. Further discussion on alternative placement to be determine and discussed with patient's family and case management today. The respiratory therapist from [employer] coming is schedule to come at 1400 today for further assessment. 05/13: Tolerating home vent this amd. Recent CXR reviewed with no significant change. Patient's home vent settings were adjusted by [facility]. [employer] company respiratory therapist to come again today to make further adjusted to home vent. Plan is to optimize patient's on home vent for possible discharge home. 05/14: Patient continue to have periods of desaturations on home vent. Home vent setting adjusted and it was determined that patient require 12L to 15L of oxygen to maintain SPO2 goal above 88%. Will continue to optimized patient on home vent for possible discharge home on Tuesday. 05/15: Febrile overnight with hypotension and increased O2 requirement. s/p 500cc IVF bolus, and pancultured overnight. This am CXR reviewed, IV Abx- Cefepine initiated for now, pending cultures. Assessment and Plan #Acute Hypoxemic Respiratory Failure / #Acute Bronchopneumonia - Intubated in the ED on 04/02 for hypoxemia and airway protection - 04/14 s/p Trach and PEG - 04/15 CXR reviewed complete opacity of the righ side suggesting possible mucus plug. See report for detail - 04/15 s/p Bronchoscopy by [facility] - Tolerating home vent this am, SPO2 at 95% - [facility] consulted, appreciate recommendations - Multiple failed vent wean - Continue CPT and mucomyst per CCM - VAP bundle addressed - Aspiration precaution HOB above 30 - PRN ABG and CXR per CCM - Continue SPO2 monitoring for SPO2 goal above 92% #Sepsis #Acute Bronchopneumonia #HCAP #Leukocytosis - CXR shows moderate to large layering effusion on the right, see report for full detail - CT chest also reviewed, findings are most consistent with acute bronchopneumo carlos. See report for full detail - Patient was recent hospitalized for pneumonia - Patient remains afebrile - Tracheal aspirate with Pseudomonas aeruginosa, Enterobacter aerogenes - 04/02 blood culture with bacillus species, 04/05 blood culture NGTD - Patient completed T16lbwa of Cefepine - CRP 31.6, procalcitonin 0.08 - MRSA negative - Daily CBC monitor - ID signed off #Suspect ischemic coronary artery disease #h/o cardiomyopathy - Low BP probably due to hypovolemia vs sedation vs infectious process - s/p Levophed gtt - Elevated troponin possibly a type II troponin leak - Cardiology consulted, appreciated recommendations - Echocardiogram shows ejection fraction of 40 to 45%, mild global hypokinesis of left ventricle - Continue BB - Continue blood pressure monitor per protocol - Maintain MAP above 65 - On heparin SubQ #H/o Amyotrophic Lateral Sclerosis #Acute Metabolic Encephalopathy-resolved #Nonverbal at Baseline - Presented with AMS, per family patient is nonverbal at baseline but responsive - CT head/Brain with no acute intracranial process - Off sedation. Awake and calm - Continue Seroquel per [facility] - Avoid benzodiazepine to reduce the possibility of delirium - PRN analgesia for CPOT greater than 3 - Maintenance of sleep-wake cycle #Thrombocytopenia-resolved - Continue to trend plt - On heparin subQ - Monitor for s/s of any active bleeding #Hypernatremia-resolved - Monitor and replace electrolytes as needed - Continue to trend BMP #Protein Caloric Malnutrition - Albumin 2.7, Total protein 4.6 - 04/15 s/p EPG-Tube placement - Continue enteral nutrition - Nutrition consulted #Constipation - Noted on CXR and KUB - Continue BR #GI/DVT Prophylaxis - PPI- Pepcid - Heparin SubQ - SCDs to bilateral lower extremities while in bed #Advance Care Planning - Disease education data, care plan, diagnoses, and prognosis were discussed patient's , Carly Lopez, and patient daughter, Kaylee Warren, who translated for #[phone]. They reported that patient was following at [facility] for his ALS and during recent hospitalization at [facility] they were told nothing else can be offered to patient at this time and patient was discharge home with home hospice and PO morphine. First hospice visit was on , however, patient became unresponsive yesterday and they brought in to the hospital. - Goal of care and code status were also addressed at that time. Family wants to wait for a couple days to see how patient respond to current treatment before making a decision. All questions and concerns were addressed at this time. Patient family acknowledged understanding and agreement with care plan. - Patient remains a FULL CODE status -04/05: Discussion at bedside with interpreting service with Dr. Valdivia and family state they would discuss next steps amongst themselves and let healthcare team know of decisions -04/06: extensive discussion with family ( and son) with Dr. Grayson regarding goals of care -04/08: Extensive discussion with with the use of educational sign language interpreter line regarding goals of care; no decision made. Possible consult to surgery for trach/PEG early next week. -04/09: Discussion with and her sister with Dr. Grayson and then with Dr. Pineda-> Consulted surgery for trach/peg -04/30 Insurance Denied LTAC, plan for possible SNF placemenet now. Case management to arrange -05/12: Discharge cancelled yesterday. Patient desated on home vent at max setting. Home vent is not sufficient to support patient's ventilation need. -05/13: Adjustement made to home vent. Plan to optimize patient for possible dis charge home. The high probability of a clinically significant, sudden or life threatening deterioration of the [multiple] system(s) required my full and direct attention, intervention and personal management. The aggregate critical care time was [60] minutes. This time is in addition to time spent performing reported procedures but includes the following: [x] Data Review and interpretation [x] Patient assessment and monitoring of vital signs [x] Documentation [x] Medication orders and management Disposition Plan: ICU Total Time Spent with Patient (Minutes): 60 History Interval history: Patient seen and examined at the bedside. Febrile overnight with hypotension, s/p 500cc NS bolus, cultures sent. Remains on home vent, O2 requirement increased to 15L from 11L, VSS this am. VIRGILIO overnight Hospitalist Physical - Physical exam Narrative exam: General appearance: Present: no acute distress, cachectic, other (Trach and on the vent.Awake and tracking, following simple commands) - EENT Eyes: Present: PERRL - Neck Neck: Present: normal ROM - Respiratory Respiratory effort: normal Respiratory: bilateral: rhonchi - Cardiovascular Rhythm: regular Heart Sounds: Present: S1 & S2 - Extremities Extremities: no ischemia, pulses intact, pulses symmetrical Peripheral Pulses: within normal limits - Abdominal General gastrointestinal: soft, non-distended, normal bowel sounds - Integumentary Integumentary: Present: warm, dry - Psychiatric Psychiatric: other (Trach and on the vent. Awake and tracking, following simple commands) - Neurologic Neurologic: other (Trach and on the vent. Awake and tracking, following simple commands) - Allied Health Allied health notes reviewed: nursing, case management - Constitutional Vitals: Temp Pulse Resp BP Pulse Ox 99.2 F 100 H 12 109/72 100 05/15/22 08:00 05/15/22 11:00 05/15/22 11:00 05/15/22 11:00 05/15/22 11:00 HEART Score - HEART Score Troponin: Troponin T 0.031 ng/mL (0.00-0.029) H 04/08/22 17:47 Results - Labs CBC & Chem 7: 05/15/22 10:44 05/15/22 10:44 Labs: Laboratory Last Values WBC 13.3 K/mm3 (4.5-11.0) H 05/13/22 04:02 RBC 3.14 M/mm3 (3.65-5.03) L 05/13/22 04:02 Hgb 8.7 gm/dl (11.8-15.2) L 05/13/22 04:02 Hct 28.0 % (35.5-45.6) L 05/13/22 04:02 MCV 89 fl (84-94) 05/13/22 04:02 MCH 28 pg (28-32) 05/13/22 04:02 MCHC 31 % (32-34) L 05/13/22 04:02 RDW 15.2 % (13.2-15.2) 05/13/22 04:02 Plt Count 418 K/mm3 (140-440) 05/13/22 04:02 Lymph % (Auto) 8.1 % (13.4-35.0) L 05/09/22 15:15 [place] % (Auto) 4.9 % (0.0-7.3) 05/09/22 15:15 Eos % (Auto) 0.6 % (0.0-4.3) 05/09/22 15:15 Baso % (Auto) 0.3 % (0.0-1.8) 05/09/22 15:15 Lymph # (Auto) 0.9 K/mm3 (1.2-5.4) L 05/09/22 15:15 [place] # (Auto) 0.5 K/mm3 (0.0-0.8) 05/09/22 15:15 Eos # (Auto) 0.1 K/mm3 (0.0-0.4) 05/09/22 15:15 Baso # (Auto) 0.0 K/mm3 (0.0-0.1) 05/09/22 15:15 Add Manual Diff Complete 04/02/22 19:39 Total Counted 100 04/02/22 19:39 Seg Neutrophils % 86.1 % (40.0-70.0) H 05/09/22 15:15 Seg Neuts % (Manual) 94.0 % (40.0-70.0) H 04/02/22 19:39 Band Neutrophils % 0 % 04/02/22 19:39 Lymphocytes % (Manual) 1.0 % (13.4-35.0) L 04/02/22 19:39 Reactive Lymphs % (Man) 0 % 04/02/22 19:39 Monocytes % (Manual) 5.0 % (0.0-7.3) 04/02/22 19:39 Eosinophils % (Manual) 0 % (0.0-4.3) 04/02/22 19:39 Basophils % (Manual) 0 % (0.0-1.8) 04/02/22 19:39 Metamyelocytes % 0 % 04/02/22 19:39 Myelocytes % 0 % 04/02/22 19:39 Promyelocytes % 0 % 04/02/22 19:39 Blast Cells % 0 % 04/02/22 19:39 Nucleated RBC % Not Reportable 04/02/22 19:39 Seg Neutrophils # 9.2 K/mm3 (1.8-7.7) H 05/09/22 15:15 Seg Neutrophils # Man 13.4 K/mm3 (1.8-7.7) H 04/02/22 19:39 Band Neutrophils # 0.0 K/mm3 04/02/22 19:39 Lymphocytes # (Manual) 0.1 K/mm3 (1.2-5.4) L 04/02/22 19:39 Abs React Lymphs (Man) 0.0 K/mm3 04/02/22 19:39 Monocytes # (Manual) 0.7 K/mm3 (0.0-0.8) 04/02/22 19:39 Eosinophils # (Manual) 0.0 K/mm3 (0.0-0.4) 04/02/22 19:39 Basophils # (Manual) 0.0 K/mm3 (0.0-0.1) 04/02/22 19:39 Metamyelocytes # 0.0 K/mm3 04/02/22 19:39 Myelocytes # 0.0 K/mm3 04/02/22 19:39 Promyelocytes # 0.0 K/mm3 04/02/22 19:39 Blast Cells # 0.0 K/mm3 04/02/22 19:39 WBC Morphology Not Reportable 04/02/22 19:39 Hypersegmented Neuts Not Reportable 04/02/22 19:39 Hyposegmented Neuts Not Reportable 04/02/22 19:39 Hypogranular Neuts Not Reportable 04/02/22 19:39 Smudge Cells Not Reportable 04/02/22 19:39 Toxic Granulation Not Reportable 04/02/22 19:39 Toxic Vacuolation Not Reportable 04/02/22 19:39 Dohle Bodies Not Reportable 04/02/22 19:39 Pelger-Huet Anomaly Not Reportable 04/02/22 19:39 Terry Rods Not Reportable 04/02/22 19:39 Platelet Estimate Consistent w auto 04/02/22 19:39 Clumped Platelets Not Reportable 04/02/22 19:39 Plt Clumps, EDTA Not Reportable 04/02/22 19:39 Large Platelets Not Reportable 04/02/22 19:39 Giant Platelets Not Reportable 04/02/22 19:39 Platelet Satelliting Not Reportable 04/02/22 19:39 Plt Morphology Comment Not Reportable 04/02/22 19:39 RBC Morphology Not Reportable 04/02/22 19:39 Dimorphic RBCs Not Reportable 04/02/22 19:39 Polychromasia Not Reportable 04/02/22 19:39 Hypochromasia Not Reportable 04/02/22 19:39 Poikilocytosis Not Reportable 04/02/22 19:39 Anisocytosis 1+ 04/02/22 19:39 Microcytosis Not Reportable 04/02/22 19:39 Macrocytosis Not Reportable 04/02/22 19:39 Spherocytes Not Reportable 04/02/22 19:39 Pappenheimer Bodies Not Reportable 04/02/22 19:39 Sickle Cells Not Reportable 04/02/22 19:39 Target Cells Not Reportable 04/02/22 19:39 Tear Drop Cells Not Reportable 04/02/22 19:39 Ovalocytes Not Reportable 04/02/22 19:39 Helmet Cells Not Reportable 04/02/22 19:39 [place] Bodies Not Reportable 04/02/22 19:39 [place] Rings Not Reportable 04/02/22 19:39 [place]ikh Cells Not Reportable 04/02/22 19:39 Bite Cells Not Reportable 04/02/22 19:39 Crenated Cell Not Reportable 04/02/22 19:39 Elliptocytes Not Reportable 04/02/22 19:39 Acanthocytes (Spur) Not Reportable 04/02/22 19:39 Rouleaux Not Reportable 04/02/22 19:39 Hemoglobin C Crystals Not Reportable 04/02/22 19:39 Schistocytes Not Reportable 04/02/22 19:39 Malaria parasites Not Reportable 04/02/22 19:39 [place] Bodies Not Reportable 04/02/22 19:39 Hem Pathologist Commnt No 04/02/22 19:39 PT 13.6 Sec. (12.2-14.9) 04/13/22 04:30 INR 0.94 (0.87-1.13) 04/13/22 04:30 APTT 35.7 Sec. (24.2-36.6) 04/07/22 03:51 ABG pH 7.383 pH Units (7.350-7.450) 05/04/22 09:36 ABG pCO2 75.0 mm Hg 05/04/22 09:36 ABG pO2 55.4 mm Hg (80.0-90.0) L 05/04/22 09:36 ABG HCO3 43.7 mmol/L (20.0-26.0) H 05/04/22 09:36 ABG O2 Saturation 87.4 % (95.0-99.0) L 05/04/22 09:36 ABG O2 Content 11.0 (0.0-44) 05/04/22 09:36 ABG Base Excess 16.1 mmol/L (-2.0-3.0) H 05/04/22 09:36 ABG Hemoglobin 9.1 gm/dl (14.0-18.0) L 05/04/22 09:36 ABG Carboxyhemoglobin 1.5 % (0.0-5.0) 05/04/22 09:36 ABG Methemoglobin 0.4 % (0.0-1.5) 05/04/22 09:36 Oxyhemoglobin 85.7 % (95.0-99.0) L 05/04/22 09:36 FiO2 30 % 05/04/22 09:36 Sodium 135 mmol/L (137-145) L 05/13/22 04:02 Potassium 4.2 mmol/L (3.6-5.0) 05/13/22 04:02 Chloride 91.1 mmol/L (98-107) L 05/13/22 04:02 Carbon Dioxide 40 mmol/L (22-30) H 05/13/22 04:02 Anion Gap 8 mmol/L 05/13/22 04:02 BUN 23 mg/dL (9-20) H 05/13/22 04:02 Creatinine < 0.2 mg/dL (0.8-1.3) L 05/13/22 04:02 Estimated GFR > 60 ml/min 05/13/22 04:02 BUN/Creatinine Ratio 115 % 05/13/22 04:02 Glucose 139 mg/dL (75-100) H 05/13/22 04:02 POC Glucose 189 mg/dL (70-105) H 05/14/22 23:44 Lactic Acid 1.90 mmol/L (0.7-2.0) 04/02/22 19:39 Calcium 8.6 mg/dL (8.4-10.2) 05/13/22 04:02 Phosphorus 3.40 mg/dL (2.5-4.5) 05/05/22 04:23 Magnesium 1.90 mg/dL (1.7-2.3) 05/05/22 04:23 Total Bilirubin 0.80 mg/dL (0.1-1.2) 04/02/22 19:39 AST 15 units/L (5-40) 04/02/22 19:39 ALT 9 units/L (7-56) 04/02/22 19:39 Alkaline Phosphatase 43 units/L (35-129) 04/02/22 19:39 Total Creatine Kinase 46 units/L (55-170) L 04/08/22 17:47 CK-MB (CK-2) 2.6 ng/mL (0.0-4.0) 04/08/22 17:47 CK-MB (CK-2) Rel Index 5.6 (0-4) H 04/08/22 17:47 Troponin T 0.031 ng/mL (0.00-0.029) H 04/08/22 17:47 C-Reactive Protein 31.60 mg/dL (0.00-1.30) H 04/04/22 04:18 Total Protein 4.6 g/dL (6.3-8.2) L 04/02/22 19:39 Albumin 2.7 g/dL (3.9-5) L 04/02/22 19:39 Albumin/Globulin Ratio 1.4 % 04/02/22 19:39 Triglycerides 80 mg/dL (2-149) 04/02/22 19:39 Cholesterol 94 mg/dL (50-199) 04/02/22 19:39 LDL Cholesterol Direct 27 mg/dL (50-130) L 04/02/22 19:39 HDL Cholesterol 47 mg/dL (40-59) 04/02/22 19:39 Cholesterol/HDL Ratio 2.00 % 04/02/22 19:39 Procalcitonin 0.08 ng/mL (<0.15) 04/04/22 04:18 Urine Color Aracely (Yellow) 04/05/22 17:45 Urine Turbidity Cloudy (Clear) 04/05/22 17:45 Urine pH 5.0 (5.0-7.0) 04/05/22 17:45 Ur Specific [place] 1.021 (1.003-1.030) 04/05/22 17:45 Urine Protein 30 mg/dl mg/dL (Negative) 04/05/22 17:45 Urine Glucose (UA) Neg mg/dL (Negative) 04/05/22 17:45 Urine Ketones Tr mg/dL (Negative) 04/05/22 17:45 Urine Blood Sm (Negative) 04/05/22 17:45 Urine Nitrite Neg (Negative) 04/05/22 17:45 Urine Bilirubin Neg (Negative) 04/05/22 17:45 Urine Urobilinogen < 2.0 mg/dL (<2.0) 04/05/22 17:45 Ur Leukocyte Esterase Tr (Negative) 04/05/22 17:45 Urine WBC (Auto) 8.0 /HPF (0.0-6.0) H 04/05/22 17:45 Urine RBC (Auto) 3.0 /HPF (0.0-6.0) 04/05/22 17:45 U Epithel Cells (Auto) 2.0 /HPF (0-13.0) 04/05/22 17:45 Urine Bacteria (Auto) 1+ /HPF (Negative) 04/02/22 Unknown Hyaline Casts 1 /LPF 04/05/22 17:45 Urine Mucus 3+ /HPF 04/05/22 17:45 Nasal Screen MRSA (PCR) Negative (Negative) 04/05/22 12:37 Vancomycin Trough 6.0 ug/mL (5.0-20.0) 04/05/22 18:53 Coronavirus (PCR) Negative (Negative) 04/07/22 14:52 Perez/IV: Voiding Method Condom Catheter Active Medications - Current Medications Current Medications: Generic Name Dose Route Start Last Admin Trade Name Freq PRN Reason Stop Dose Admin Acetaminophen 650 mg 04/02/22 23:53 05/04/22 21:37 Acetaminophen 325 Mg Tab PO 650 mg Q6H PRN Administration Pain MILD(1-3)/Fever >100.5/FAITH Acetylcysteine 200 mg 05/04/22 20:00 05/15/22 07:35 Acetylcysteine 20% 200 Mg/1 Ml *For Inhalation Use* INHALATION 200 mg Q12HRT SEGUNDO Administration Albuterol 2.5 mg 05/05/22 20:00 05/15/22 07:11 Albuterol 2.5 Mg/3 Ml Nebu IH 2.5 mg Q12HRT SEGUNDO Administration Bisacodyl 10 mg 04/07/22 09:44 04/12/22 10:06 Bisacodyl 10 Mg Rect Supp PA 10 mg QDAY PRN Administration Constipation Famotidine 20 mg 04/06/22 10:00 05/15/22 09:07 Famotidine 20 Mg Tab FEEDTUBE 20 mg BID SEGUNDO Administration Fentanyl 50 mcg 04/04/22 15:56 05/14/22 22:33 Fentanyl 100 Mcg/2 Ml Inj IV 50 mcg Q2HR PRN Administration For CPOT of greater than 3 Heparin Sodium (Porcine) 5,000 unit 04/03/22 06:00 05/15/22 06:35 Heparin 5,000 Unit/1 Ml Vial SUB-Q 5,000 unit Q8HR SEGUNDO Administration Insulin Human Lispro 0 unit 05/05/22 06:00 05/15/22 09:06 Insulin Lispro 100 Unit/Ml SUB-Q Not Given Q8HR [facility] Protocol Magnesium Hydroxide 30 ml 04/02/22 23:53 Magnesium Hydroxide (Mom) Oral Liqd Udc PO Q4H PRN Constipation Metoprolol Tartrate 12.5 mg 05/03/22 13:00 05/15/22 06:36 Metoprolol Tartrate 25 Mg Tab FEEDTUBE Not Given Q6HR [facility] Ondansetron HCl 4 mg 04/02/22 23:53 Ondansetron 4 Mg/2 Ml Inj IV Q8H PRN Nausea And Vomiting Quetiapine Fumarate 50 mg 05/13/22 11:00 05/15/22 09:07 Quetiapine 100 Mg Tab FEEDTUBE 50 mg BID SEGUNDO Administration Scopolamine 1 each 05/12/22 09:00 05/15/22 09:07 Scopolamine Transdermal Patch 72 Hr TD 1 each Q3D SEGUNDO Administration Sodium Chloride 10 ml 04/03/22 10:00 05/15/22 09:08 Sodium Chloride 0.9% 10 Ml Flush Syringe IV 10 ml BID SEGUNDO Administration Sodium Chloride 10 ml 04/02/22 23:53 Sodium Chloride 0.9% 10 Ml Flush Syringe IV PRN PRN LINE FLUSH Nutrition/Malnutrition Assess - Dietary Evaluation Nutrition/Malnutrition Findings: Nutrition Notes Start: 04/04/22 13:13 Freq: Status: Active Protocol: Document 05/11/22 11:49 COLLEEN (Rec: 05/11/22 12:02 COLLEEN [id number]) Nutrition Notes Initial or Follow up Reassessment Current Diagnosis Coronary Artery Disease, Decubitus(Pressure Ulcer), Sepsis,Respiratory Failure, Malnutrition Other Pertinent Diagnosis HCAP, ALS, Broncopneumonia, NSTEMI, Cardiomyopathy, ... Current Diet TF-Vital AF 1.2 Inderjit @ 50 ml/hr (since D 04/15). Labs/Tests 05/09: Cl 92.9, CO2 40, Crea < 0.2, Glu 141. Pertinent Medications 05/11: Nutritionally unremarkable. Height 5 ft 4.8 in Weight 46.8 kg [place] Body Weight (kg) 61.27 BMI 17.2 Weight change and time frame No body weight change reported in 5 weeks. Weight Status Underweight Subjective/Other Information RD consult for routine F/U on TF tolerance/continuation. TF continues as prescribed, and well tolerated, according to RN notes. Pt continues on Mechanical ventilation, O2 saturation @ 93%, according to Physical Assessment Histroy notes. Pt will be discharged home with family; awaiting home- Vent family training to be over on 05/12, according to Progress notes. Percent of energy/protein needs met: Prescribed TF-Vital AF 1.2 Inderjit @ 50 ml/hr provides for energy/protein needs (1,450 Kcal/91 g) during LOS, 98% Kcal; 100% AA. Burn Absent Trauma Absent GI Symptoms Constipation Difficulty In Swallowing,Chewing Food Allergy No Skin Integrity/Comment Sacral open wound. Current % PO Other Minimum of two criteria No #1 Nutrition Diagnosis Inadequate oral intake Diagnosis Progress(for reassessment Continues documentation) Is patient on ventilator? Yes Is Patient Ambulatory and/or Out of Bed No REE-([facility]-confined to bed) [phone] Calculation Used for Recommendations Teresa Craig Additional Notes Protein: 1.2-2 g/Kg IBW; 73- 122 g/day. Fluids: 1 ml/Kcal, or as per MD. Nutrition Intervention Nutrition Support: Continue TF-Vital AF 1.2 Inderjit @ 50 ml/hr. Flush: 80 ml water Q 4 hr, or as per MD. Kcal 1,450 Protein (gm) 91 Carbohydrates (gm) 134 Fat (gm) 65 Fluid (mL) 980 Fiber (gm) 6 % RDI: 98% Kcal; 100% AA. Goal #1 Provide at least 75% of energy /protein needs through Enteral Feeding during LOS. Follow-Up By: 05/18/22 Additional Comments Continue monitoring TF tolerance and BM.
[2022-05-15 12:00] LABS: Hematocrit 23.5 % (35.5-45.6); Hemoglobin 7.5 gm/dl (11.8-15.2); Mean Corpuscular HGB Conc 32 % (32-34); Mean Corpuscular Volume 87 fl (84-94); Platelet Count 333 K/mm3 (140-440); Red Blood Count 2.71 M/mm3 (3.65-5.03); Red Cell Distribution Width 15.9 % (13.2-15.2)
[2022-05-15 12:21] LABS: Blood Urea Nitrogen 21 mg/dL (9-20); Calcium 7.9 mg/dL (8.4-10.2); Hemolysis Index 0
[2022-05-15 12:30] LABS: BUN/Creatinine Ratio 105
[2022-05-15] MEDS ORDERED: POTASSIUM CHLORIDE 20 MEQ PACKET FEEDTUBE ONE (14:00)
[2022-05-15] MEDS ORDERED: SODIUM CHLORIDE 0.9% 500 ML 500 ML ONE (17:09)
[2022-05-15] MEDS: CEFEPIME/NS 2 GM/100 ML 2 GM/100 ML BAG IV SCH (17:20)
--- NOTE | 2022-05-15 17:40 | Progress Note ---
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 Right lung hemiopacification- Atelectasis s/p Bronchoscopy Oropharyngeal dysphagia s/p PEG Protein calorie malnutrition Acute Bronchopneumonia HCAP Hypotension NSTEMI H/o Amyotrophic Lateral Sclerosis Nonverbal at Baseline -Follow cultures, in the interim empiric Cefepime -Gentle IV fluids, replece potassium- keep K >3.5; Mg at 2 and Phos >2.5 to optimize respiratory muscle function -Trach care, airway clearance, -continue with bronchodilators and chest PT -CXR,ABG as clinically indicated -Titrate supplemental oxygen to keep SpO2 89-92% -VAP bundle addressed, aspiration precautions HOB >40 -Monitoring renal function, hemodynamics and electrolyte profile -Accuchecks with glycemic control. target blood glucose 140-180 mg/dL. Avoid hypoglycemia -Continue enteric nutritional support, bowel regimen -VTE prophylaxis- Heparin -Avoid nephrotoxins and renally dose all medications -Stress ulcer prophylaxis- Famotidine -Mobility, frequent turning, off loading per facility protocol to prevent pressure ulcers -Maintain sleep wake cycle, avoid benzodiazepines. -Limit delirium CONDITION:CRITICAL PROGNOSIS: GUARDED CODE STATUS; FULL CODE The high probability of a clinically significant, sudden or life threatening deterioration of the respiratory, cardiovascular, neurology system required my full and direct attention, intervention and personal management. The aggregate critical care time was [33] minutes. 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 Vitals, labs, medications, chart and imaging reviewed. Discussed with respiratory and nursing care staff. s/p trach and PEG. On PEEP 8 and -home vent Febrile overnight with hypotension and increased O2 requirement. s/p 500cc IVF bolus, and pancultured overnight. Objective Vital Signs - 12hr 05/15/22 05/15/22 05/15/22 06:00 06:36 07:00 Temperature Pulse Rate 106 H 106 H 108 H Pulse Rate [ Bilateral Throughout] Pulse Rate [ From Monitor] Respiratory 23 22 Rate Respiratory Rate [Bilateral Throughout] Blood Pressure 93/61 90/49 85/55 O2 Sat by Pulse 96 100 Oximetry O2 Sat by Pulse Oximetry [ Assessment] 05/15/22 05/15/22 05/15/22 07:12 07:14 08:00 Temperature 99.2 F Pulse Rate 105 H 108 H Pulse Rate [ 99 H Bilateral Throughout] Pulse Rate [ 110 H From Monitor] Respiratory 22 Rate Respiratory 25 H Rate [Bilateral Throughout] Blood Pressure 88/55 93/56 O2 Sat by Pulse 95 96 Oximetry O2 Sat by Pulse 96 Oximetry [ Assessment] 05/15/22 05/15/22 05/15/22 09:00 10:00 11:00 Temperature Pulse Rate 107 H 98 H 100 H Pulse Rate [ Bilateral Throughout] Pulse Rate [ From Monitor] Respiratory 21 24 12 Rate Respiratory Rate [Bilateral Throughout] Blood Pressure 91/57 97/56 109/72 O2 Sat by Pulse 98 98 100 Oximetry O2 Sat by Pulse Oximetry [ Assessment] 05/15/22 05/15/22 05/15/22 12:00 12:43 13:00 Temperature 99.3 F Pulse Rate 98 H 103 H 99 H Pulse Rate [ Bilateral Throughout] Pulse Rate [ 86 From Monitor] Respiratory 16 18 Rate Respiratory Rate [Bilateral Throughout] Blood Pressure 116/68 118/70 O2 Sat by Pulse 100 93 Oximetry O2 Sat by Pulse Oximetry [ Assessment] 05/15/22 05/15/22 05/15/22 14:00 15:00 16:00 Temperature 100.4 F H Pulse Rate 89 89 78 Pulse Rate [ Bilateral Throughout] Pulse Rate [ 86 From Monitor] Respiratory 16 16 17 Rate Respiratory Rate [Bilateral Throughout] Blood Pressure 117/13 97/68 97/58 O2 Sat by Pulse 100 100 97 Oximetry O2 Sat by Pulse Oximetry [ Assessment] 05/15/22 05/15/22 05/15/22 16:15 17:00 17:21 Temperature Pulse Rate 96 H Pulse Rate [ Bilateral Throughout] Pulse Rate [ From Monitor] Respiratory 10 L Rate Respiratory Rate [Bilateral Throughout] Blood Pressure 97/58 97/58 O2 Sat by Pulse 95 Oximetry O2 Sat by Pulse 96 Oximetry [ Assessment] Constitutional: no acute distress, alert, other (resting in bed with mildly increased respiratory effort at rest) Eyes: non-icteric ENT: oropharynx moist, other (+ midline tracheostomy to home vent) Neck: supple, no lymphadenopathy, no JVD Effort: mildly labored Ascultation: Bilateral: diminished breath sounds (bases), rhonchi Percussion: Bilateral: not dull Cardiovascular: regular rate and rhythm, other (S1,S2) Gastrointestinal: normoactive bowel sounds, soft, non-tender, non-distended Integumentary: normal Extremities: no cyanosis, no edema, pink and warm, pulses normal Neurologic: pupils equal and round, other (functional quadriplegia) Psychiatric: other CBC and BMP: 05/15/22 10:44 05/15/22 10:44 ABG, PT/INR, D-dimer: ABG ABG pH 7.383 pH Units (7.350-7.450) 05/04/22 09:36 ABG pCO2 75.0 mm Hg 05/04/22 09:36 ABG pO2 55.4 mm Hg (80.0-90.0) L 05/04/22 09:36 ABG O2 Saturation 87.4 % (95.0-99.0) L 05/04/22 09:36 PT/INR, D-dimer PT 13.6 Sec. (12.2-14.9) 04/13/22 04:30 INR 0.94 (0.87-1.13) 04/13/22 04:30 Abnormal lab findings: Abnormal Labs 04/02/22 04/02/22 04/02/22 19:39 19:39 19:39 WBC 14.3 H RBC Hgb Hct MCV 96 H MCHC RDW Plt Count 104 L Lymph % (Auto) Boyd % (Auto) Lymph # (Auto) Boyd # (Auto) Seg Neutrophils % Seg Neuts % (Manual) 94.0 H Lymphocytes % (Manual) 1.0 L Seg Neutrophils # Seg Neutrophils # Man 13.4 H Lymphocytes # (Manual) 0.1 L PT 15.9 H INR 1.14 H ABG pH ABG pO2 ABG HCO3 ABG O2 Saturation ABG Base Excess ABG Hemoglobin Oxyhemoglobin Sodium 151 H Potassium Chloride Carbon Dioxide BUN Creatinine 0.5 L Glucose POC Glucose Calcium 8.2 L Phosphorus Magnesium 1.60 L Total Creatine Kinase CK-MB (CK-2) Rel Index Troponin T 0.048 H C-Reactive Protein Total Protein 4.6 L Albumin 2.7 L LDL Cholesterol Direct 27 L Urine WBC (Auto) 04/02/22 04/03/22 04/03/22 19:42 05:14 06:30 WBC RBC Hgb Hct MCV MCHC RDW Plt Count Lymph % (Auto) Boyd % (Auto) Lymph # (Auto) Boyd # (Auto) Seg Neutrophils % Seg Neuts % (Manual) Lymphocytes % (Manual) Seg Neutrophils # Seg Neutrophils # Man Lymphocytes # (Manual) PT INR ABG pH 7.471 H 7.496 H ABG pO2 47.8 L 91.0 H ABG HCO3 30.6 H ABG O2 Saturation 94.4 L ABG Base Excess 6.2 H ABG Hemoglobin 11.0 L 12.8 L Oxyhemoglobin 93.1 L Sodium 149 H Potassium 3.4 L Chloride Carbon Dioxide BUN Creatinine 0.4 L Glucose POC Glucose Calcium Phosphorus Magnesium Total Creatine Kinase CK-MB (CK-2) Rel Index Troponin T C-Reactive Protein Total Protein Albumin LDL Cholesterol Direct Urine WBC (Auto) 04/04/22 04/04/22 04/04/22 04:18 04:18 05:50 WBC 11.8 H RBC Hgb Hct MCV MCHC RDW Plt Count 132 L Lymph % (Auto) Boyd % (Auto) Lymph # (Auto) Boyd # (Auto) Seg Neutrophils % Seg Neuts % (Manual) Lymphocytes % (Manual) Seg Neutrophils # Seg Neutrophils # Man Lymphocytes # (Manual) PT INR ABG pH 7.517 H ABG pO2 115.5 H ABG HCO3 29.9 H ABG O2 Saturation ABG Base Excess 6.7 H ABG Hemoglobin 12.3 L Oxyhemoglobin Sodium Potassium 3.5 L Chloride Carbon Dioxide 31 H BUN Creatinine 0.3 L Glucose 153 H POC Glucose Calcium Phosphorus 1.40 L Magnesium 1.50 L Total Creatine Kinase CK-MB (CK-2) Rel Index Troponin T C-Reactive Protein 31.60 H Total Protein Albumin LDL Cholesterol Direct Urine WBC (Auto) 04/05/22 04/05/22 04/05/22 02:50 05:25 11:28 WBC RBC Hgb Hct MCV MCHC RDW Plt Count Lymph % (Auto) Boyd % (Auto) Lymph # (Auto) Boyd # (Auto) Seg Neutrophils % Seg Neuts % (Manual) Lymphocytes % (Manual) Seg Neutrophils # Seg Neutrophils # Man Lymphocytes # (Manual) PT INR ABG pH 7.455 H ABG pO2 50.7 L ABG HCO3 30.5 H ABG O2 Saturation 89.4 L ABG Base Excess 5.9 H ABG Hemoglobin 11.8 L Oxyhemoglobin 88.2 L Sodium Potassium Chloride Carbon Dioxide 32 H BUN Creatinine 0.2 L Glucose 110 H POC Glucose 124 H Calcium 7.9 L Phosphorus Magnesium Total Creatine Kinase CK-MB (CK-2) Rel Index Troponin T C-Reactive Protein Total Protein Albumin LDL Cholesterol Direct Urine WBC (Auto) 04/05/22 04/05/22 04/06/22 17:45 Unknown 04:00 WBC RBC 3.55 L Hgb 11.1 L 11.5 L Hct 33.2 L 35.1 L MCV MCHC RDW Plt Count 113 L 114 L Lymph % (Auto) Boyd % (Auto) Lymph # (Auto) Boyd # (Auto) Seg Neutrophils % Seg Neuts % (Manual) Lymphocytes % (Manual) Seg Neutrophils # Seg Neutrophils # Man Lymphocytes # (Manual) PT INR ABG pH ABG pO2 ABG HCO3 ABG O2 Saturation ABG Base Excess ABG Hemoglobin Oxyhemoglobin Sodium Potassium Chloride Carbon Dioxide BUN Creatinine Glucose POC Glucose Calcium Phosphorus Magnesium Total Creatine Kinase CK-MB (CK-2) Rel Index Troponin T C-Reactive Protein Total Protein Albumin LDL Cholesterol Direct Urine WBC (Auto) 8.0 H 04/06/22 04/06/22 04/07/22 04:00 08:30 00:04 WBC RBC Hgb Hct MCV MCHC RDW Plt Count Lymph % (Auto) Boyd % (Auto) Lymph # (Auto) Boyd # (Auto) Seg Neutrophils % Seg Neuts % (Manual) Lymphocytes % (Manual) Seg Neutrophils # Seg Neutrophils # Man Lymphocytes # (Manual) PT INR ABG pH ABG pO2 60.8 L ABG HCO3 30.5 H ABG O2 Saturation 93.3 L ABG Base Excess 4.9 H ABG Hemoglobin 12.4 L Oxyhemoglobin 92.1 L Sodium Potassium 3.0 L Chloride Carbon Dioxide BUN Creatinine < 0.2 L Glucose 130 H POC Glucose 117 H Calcium 8.1 L Phosphorus Magnesium Total Creatine Kinase CK-MB (CK-2) Rel Index Troponin T C-Reactive Protein Total Protein Albumin LDL Cholesterol Direct Urine WBC (Auto) 04/07/22 04/07/22 04/07/22 03:51 03:51 03:51 WBC 14.6 H RBC 3.57 L Hgb 11.1 L Hct 33.2 L MCV MCHC RDW Plt Count 118 L Lymph % (Auto) 4.3 L Boyd % (Auto) 8.8 H Lymph # (Auto) 0.6 L Boyd # (Auto) 1.3 H Seg Neutrophils % 86.6 H Seg Neuts % (Manual) Lymphocytes % (Manual) Seg Neutrophils # 12.7 H Seg Neutrophils # Man Lymphocytes # (Manual) PT 15.2 H INR ABG pH ABG pO2 ABG HCO3 ABG O2 Saturation ABG Base Excess ABG Hemoglobin Oxyhemoglobin Sodium 133 L Potassium Chloride 96.0 L Carbon Dioxide 31 H BUN Creatinine 0.2 L Glucose 130 H POC Glucose Calcium 8.0 L Phosphorus Magnesium Total Creatine Kinase CK-MB (CK-2) Rel Index Troponin T C-Reactive Protein Total Protein Albumin LDL Cholesterol Direct Urine WBC (Auto) 04/07/22 04/07/22 04/08/22 04:25 09:10 04:49 WBC 16.1 H RBC 3.54 L Hgb 10.9 L Hct 33.3 L MCV MCHC RDW Plt Count Lymph % (Auto) Boyd % (Auto) Lymph # (Auto) Boyd # (Auto) Seg Neutrophils % Seg Neuts % (Manual) Lymphocytes % (Manual) Seg Neutrophils # Seg Neutrophils # Man Lymphocytes # (Manual) PT INR ABG pH ABG pO2 71.0 L 63.4 L ABG HCO3 31.5 H 40.0 H ABG O2 Saturation 94.9 L ABG Base Excess 5.9 H 13.6 H ABG Hemoglobin 11.3 L 9.0 L Oxyhemoglobin 93.6 L Sodium Potassium Chloride Carbon Dioxide BUN Creatinine Glucose POC Glucose Calcium Phosphorus Magnesium Total Creatine Kinase CK-MB (CK-2) Rel Index Troponin T C-Reactive Protein Total Protein Albumin LDL Cholesterol Direct Urine WBC (Auto) 04/08/22 04/08/22 04/08/22 04:49 09:53 10:25 WBC RBC Hgb Hct MCV MCHC RDW Plt Count Lymph % (Auto) Boyd % (Auto) Lymph # (Auto) Boyd # (Auto) Seg Neutrophils % Seg Neuts % (Manual) Lymphocytes % (Manual) Seg Neutrophils # Seg Neutrophils # Man Lymphocytes # (Manual) PT INR ABG pH ABG pO2 ABG HCO3 34.7 H ABG O2 Saturation ABG Base Excess 7.9 H ABG Hemoglobin 11.0 L Oxyhemoglobin Sodium 136 L Potassium Chloride 97.7 L Carbon Dioxide 33 H BUN Creatinine 0.2 L Glucose 155 H POC Glucose Calcium Phosphorus Magnesium Total Creatine Kinase CK-MB (CK-2) Rel Index Troponin T 0.030 H C-Reactive Protein Total Protein Albumin LDL Cholesterol Direct Urine WBC (Auto) 04/08/22 04/08/22 04/08/22 11:19 17:47 18:06 WBC RBC Hgb Hct MCV MCHC RDW Plt Count Lymph % (Auto) Boyd % (Auto) Lymph # (Auto) Boyd # (Auto) Seg Neutrophils % Seg Neuts % (Manual) Lymphocytes % (Manual) Seg Neutrophils # Seg Neutrophils # Man Lymphocytes # (Manual) PT INR ABG pH ABG pO2 ABG HCO3 ABG O2 Saturation ABG Base Excess ABG Hemoglobin Oxyhemoglobin Sodium Potassium Chloride Carbon Dioxide BUN Creatinine Glucose POC Glucose 121 H Calcium Phosphorus Magnesium Total Creatine Kinase 31 L 46 L CK-MB (CK-2) Rel Index 6.4 H 5.6 H Troponin T 0.030 H 0.031 H C-Reactive Protein Total Protein Albumin LDL Cholesterol Direct Urine WBC (Auto) 04/09/22 04/09/22 04/09/22 04:35 04:35 11:24 WBC 11.5 H RBC 3.16 L Hgb 9.9 L Hct 29.4 L MCV MCHC RDW Plt Count 131 L Lymph % (Auto) Boyd % (Auto) Lymph # (Auto) Boyd # (Auto) Seg Neutrophils % Seg Neuts % (Manual) Lymphocytes % (Manual) Seg Neutrophils # Seg Neutrophils # Man Lymphocytes # (Manual) PT INR ABG pH ABG pO2 ABG HCO3 ABG O2 Saturation ABG Base Excess ABG Hemoglobin Oxyhemoglobin Sodium Potassium Chloride 97.1 L Carbon Dioxide 35 H BUN Creatinine < 0.2 L Glucose 145 H POC Glucose 147 H Calcium Phosphorus Magnesium Total Creatine Kinase CK-MB (CK-2) Rel Index Troponin T C-Reactive Protein Total Protein Albumin LDL Cholesterol Direct Urine WBC (Auto) 04/09/22 04/09/22 04/09/22 13:00 17:32 23:48 WBC RBC Hgb Hct MCV MCHC RDW Plt Count Lymph % (Auto) Boyd % (Auto) Lymph # (Auto) Boyd # (Auto) Seg Neutrophils % Seg Neuts % (Manual) Lymphocytes % (Manual) Seg Neutrophils # Seg Neutrophils # Man Lymphocytes # (Manual) PT INR ABG pH ABG pO2 66.6 L ABG HCO3 38.2 H ABG O2 Saturation 94.4 L ABG Base Excess 10.7 H ABG Hemoglobin 10.7 L Oxyhemoglobin 92.8 L Sodium Potassium Chloride Carbon Dioxide BUN Creatinine Glucose POC Glucose 143 H 114 H Calcium Phosphorus Magnesium Total Creatine Kinase CK-MB (CK-2) Rel Index Troponin T C-Reactive Protein Total Protein Albumin LDL Cholesterol Direct Urine WBC (Auto) 04/10/22 04/10/22 04/10/22 04:48 04:48 05:34 WBC RBC 2.91 L Hgb 9.1 L Hct 27.7 L MCV 95 H MCHC RDW Plt Count Lymph % (Auto) Boyd % (Auto) Lymph # (Auto) Boyd # (Auto) Seg Neutrophils % Seg Neuts % (Manual) Lymphocytes % (Manual) Seg Neutrophils # Seg Neutrophils # Man Lymphocytes # (Manual) PT INR ABG pH ABG pO2 ABG HCO3 ABG O2 Saturation ABG Base Excess ABG Hemoglobin Oxyhemoglobin Sodium Potassium Chloride 95.7 L Carbon Dioxide 38 H BUN Creatinine < 0.2 L Glucose 118 H POC Glucose 127 H Calcium Phosphorus Magnesium Total Creatine Kinase CK-MB (CK-2) Rel Index Troponin T C-Reactive Protein Total Protein Albumin LDL Cholesterol Direct Urine WBC (Auto) 04/10/22 04/11/22 04/11/22 23:10 04:15 04:15 WBC 17.2 H RBC 2.98 L Hgb 9.2 L Hct 27.9 L MCV MCHC RDW Plt Count Lymph % (Auto) Boyd % (Auto) Lymph # (Auto) Boyd # (Auto) Seg Neutrophils % Seg Neuts % (Manual) Lymphocytes % (Manual) Seg Neutrophils # Seg Neutrophils # Man Lymphocytes # (Manual) PT INR ABG pH ABG pO2 ABG HCO3 ABG O2 Saturation ABG Base Excess ABG Hemoglobin Oxyhemoglobin Sodium Potassium Chloride 96.1 L Carbon Dioxide 35 H BUN Creatinine < 0.2 L Glucose 138 H POC Glucose 106 H Calcium 8.3 L Phosphorus Magnesium Total Creatine Kinase CK-MB (CK-2) Rel Index Troponin T C-Reactive Protein Total Protein Albumin LDL Cholesterol Direct Urine WBC (Auto) 04/11/22 04/11/22 04/11/22 05:31 13:18 16:20 WBC RBC Hgb Hct MCV MCHC RDW Plt Count Lymph % (Auto) Boyd % (Auto) Lymph # (Auto) Boyd # (Auto) Seg Neutrophils % Seg Neuts % (Manual) Lymphocytes % (Manual) Seg Neutrophils # Seg Neutrophils # Man Lymphocytes # (Manual) PT INR ABG pH ABG pO2 57.8 L ABG HCO3 40.5 H ABG O2 Saturation 90.6 L ABG Base Excess 12.6 H ABG Hemoglobin 10.5 L Oxyhemoglobin 89.0 L Sodium Potassium Chloride Carbon Dioxide BUN Creatinine Glucose POC Glucose 129 H 132 H Calcium Phosphorus Magnesium Total Creatine Kinase CK-MB (CK-2) Rel Index Troponin T C-Reactive Protein Total Protein Albumin LDL Cholesterol Direct Urine WBC (Auto) 04/11/22 04/11/22 04/12/22 17:29 23:17 04:00 WBC 17.4 H RBC 2.96 L Hgb 9.0 L Hct 28.0 L MCV 95 H MCHC RDW Plt Count Lymph % (Auto) Boyd % (Auto) Lymph # (Auto) Boyd # (Auto) Seg Neutrophils % Seg Neuts % (Manual) Lymphocytes % (Manual) Seg Neutrophils # Seg Neutrophils # Man Lymphocytes # (Manual) PT INR ABG pH ABG pO2 ABG HCO3 ABG O2 Saturation ABG Base Excess ABG Hemoglobin Oxyhemoglobin Sodium Potassium Chloride Carbon Dioxide BUN Creatinine Glucose POC Glucose 125 H 151 H Calcium Phosphorus Magnesium Total Creatine Kinase CK-MB (CK-2) Rel Index Troponin T C-Reactive Protein Total Protein Albumin LDL Cholesterol Direct Urine WBC (Auto) 04/12/22 04/12/22 04/12/22 04:00 17:03 23:39 WBC RBC Hgb Hct MCV MCHC RDW Plt Count Lymph % (Auto) Boyd % (Auto) Lymph # (Auto) Boyd # (Auto) Seg Neutrophils % Seg Neuts % (Manual) Lymphocytes % (Manual) Seg Neutrophils # Seg Neutrophils # Man Lymphocytes # (Manual) PT INR ABG pH ABG pO2 ABG HCO3 ABG O2 Saturation ABG Base Excess ABG Hemoglobin Oxyhemoglobin Sodium Potassium Chloride 97.4 L Carbon Dioxide 37 H BUN Creatinine < 0.2 L Glucose 127 H POC Glucose 106 H 107 H Calcium Phosphorus Magnesium Total Creatine Kinase CK-MB (CK-2) Rel Index Troponin T C-Reactive Protein Total Protein Albumin LDL Cholesterol Direct Urine WBC (Auto) 04/13/22 04/13/22 04/13/22 04:30 04:30 17:39 WBC 14.1 H RBC 2.66 L Hgb 8.4 L Hct 25.5 L MCV 96 H MCHC RDW Plt Count Lymph % (Auto) Boyd % (Auto) Lymph # (Auto) Boyd # (Auto) Seg Neutrophils % Seg Neuts % (Manual) Lymphocytes % (Manual) Seg Neutrophils # Seg Neutrophils # Man Lymphocytes # (Manual) PT INR ABG pH ABG pO2 ABG HCO3 ABG O2 Saturation ABG Base Excess ABG Hemoglobin Oxyhemoglobin Sodium Potassium Chloride 93.9 L Carbon Dioxide 39 H BUN Creatinine < 0.2 L Glucose POC Glucose 134 H Calcium Phosphorus 1.90 L Magnesium Total Creatine Kinase CK-MB (CK-2) Rel Index Troponin T C-Reactive Protein Total Protein Albumin LDL Cholesterol Direct Urine WBC (Auto) 04/14/22 04/14/22 04/14/22 05:03 05:03 09:10 WBC 15.6 H RBC 3.02 L Hgb 9.3 L Hct 28.8 L MCV 95 H MCHC RDW Plt Count Lymph % (Auto) Boyd % (Auto) Lymph # (Auto) Boyd # (Auto) Seg Neutrophils % Seg Neuts % (Manual) Lymphocytes % (Manual) Seg Neutrophils # Seg Neutrophils # Man Lymphocytes # (Manual) PT INR ABG pH ABG pO2 66.9 L ABG HCO3 44.5 H ABG O2 Saturation ABG Base Excess 17.2 H ABG Hemoglobin 8.1 L Oxyhemoglobin 94.8 L Sodium Potassium Chloride 93.8 L Carbon Dioxide 42 H* BUN Creatinine < 0.2 L Glucose 117 H POC Glucose Calcium Phosphorus Magnesium Total Creatine Kinase CK-MB (CK-2) Rel Index Troponin T C-Reactive Protein Total Protein Albumin LDL Cholesterol Direct Urine WBC (Auto) 04/15/22 04/15/22 04/16/22 04:44 04:44 04:16 WBC 13.0 H 12.6 H RBC 3.19 L 3.09 L Hgb 9.6 L 9.5 L Hct 30.2 L 29.1 L MCV 95 H MCHC RDW Plt Count 456 H Lymph % (Auto) Boyd % (Auto) Lymph # (Auto) Boyd # (Auto) Seg Neutrophils % Seg Neuts % (Manual) Lymphocytes % (Manual) Seg Neutrophils # Seg Neutrophils # Man Lymphocytes # (Manual) PT INR ABG pH ABG pO2 ABG HCO3 ABG O2 Saturation ABG Base Excess ABG Hemoglobin Oxyhemoglobin Sodium Potassium Chloride 95.5 L Carbon Dioxide 37 H BUN Creatinine < 0.2 L Glucose POC Glucose Calcium Phosphorus Magnesium Total Creatine Kinase CK-MB (CK-2) Rel Index Troponin T C-Reactive Protein Total Protein Albumin LDL Cholesterol Direct Urine WBC (Auto) 04/16/22 04/16/22 04/16/22 04:16 05:00 14:00 WBC RBC Hgb Hct MCV MCHC RDW Plt Count Lymph % (Auto) Boyd % (Auto) Lymph # (Auto) Boyd # (Auto) Seg Neutrophils % Seg Neuts % (Manual) Lymphocytes % (Manual) Seg Neutrophils # Seg Neutrophils # Man Lymphocytes # (Manual) PT INR ABG pH 7.324 L ABG pO2 55.6 L ABG HCO3 45.3 H ABG O2 Saturation 87.1 L ABG Base Excess 16.6 H ABG Hemoglobin 8.6 L Oxyhemoglobin 85.7 L Sodium Potassium Chloride 97.6 L Carbon Dioxide 36 H BUN Creatinine < 0.2 L Glucose 109 H POC Glucose 120 H Calcium Phosphorus Magnesium Total Creatine Kinase CK-MB (CK-2) Rel Index Troponin T C-Reactive Protein Total Protein Albumin LDL Cholesterol Direct Urine WBC (Auto) 04/17/22 04/17/22 04/17/22 04:36 04:36 04:57 WBC 14.4 H RBC 3.08 L Hgb 9.4 L Hct 29.0 L MCV MCHC RDW Plt Count Lymph % (Auto) Boyd % (Auto) Lymph # (Auto) Boyd # (Auto) Seg Neutrophils % Seg Neuts % (Manual) Lymphocytes % (Manual) Seg Neutrophils # Seg Neutrophils # Man Lymphocytes # (Manual) PT INR ABG pH ABG pO2 ABG HCO3 ABG O2 Saturation ABG Base Excess ABG Hemoglobin Oxyhemoglobin Sodium Potassium Chloride 95.9 L Carbon Dioxide 39 H BUN Creatinine < 0.2 L Glucose 140 H POC Glucose 137 H Calcium 8.3 L Phosphorus Magnesium Total Creatine Kinase CK-MB (CK-2) Rel Index Troponin T C-Reactive Protein Total Protein Albumin LDL Cholesterol Direct Urine WBC (Auto) 04/17/22 04/17/22 04/18/22 09:15 18:01 04:20 WBC 11.2 H RBC 3.00 L Hgb 9.3 L Hct 28.6 L MCV 95 H MCHC RDW Plt Count Lymph % (Auto) Boyd % (Auto) Lymph # (Auto) Boyd # (Auto) Seg Neutrophils % Seg Neuts % (Manual) Lymphocytes % (Manual) Seg Neutrophils # Seg Neutrophils # Man Lymphocytes # (Manual) PT INR ABG pH 7.345 L ABG pO2 ABG HCO3 48.2 H ABG O2 Saturation ABG Base Excess 19.2 H ABG Hemoglobin 9.7 L Oxyhemoglobin Sodium Potassium Chloride Carbon Dioxide BUN Creatinine Glucose POC Glucose 129 H Calcium Phosphorus Magnesium Total Creatine Kinase CK-MB (CK-2) Rel Index Troponin T C-Reactive Protein Total Protein Albumin LDL Cholesterol Direct Urine WBC (Auto) 04/18/22 04/18/22 04/18/22 04:20 17:35 23:50 WBC RBC Hgb Hct MCV MCHC RDW Plt Count Lymph % (Auto) Boyd % (Auto) Lymph # (Auto) Boyd # (Auto) Seg Neutrophils % Seg Neuts % (Manual) Lymphocytes % (Manual) Seg Neutrophils # Seg Neutrophils # Man Lymphocytes # (Manual) PT INR ABG pH ABG pO2 ABG HCO3 ABG O2 Saturation ABG Base Excess ABG Hemoglobin Oxyhemoglobin Sodium Potassium Chloride 96.8 L Carbon Dioxide 43 H* BUN 22 H Creatinine < 0.2 L Glucose 137 H POC Glucose 128 H 123 H Calcium 8.2 L Phosphorus Magnesium Total Creatine Kinase CK-MB (CK-2) Rel Index Troponin T C-Reactive Protein Total Protein Albumin LDL Cholesterol Direct Urine WBC (Auto) 04/19/22 04/19/22 04/19/22 04:08 04:08 08:50 WBC 16.8 H RBC 3.18 L Hgb 9.8 L Hct 30.1 L MCV 95 H MCHC RDW Plt Count Lymph % (Auto) Boyd % (Auto) Lymph # (Auto) Boyd # (Auto) Seg Neutrophils % Seg Neuts % (Manual) Lymphocytes % (Manual) Seg Neutrophils # Seg Neutrophils # Man Lymphocytes # (Manual) PT INR ABG pH ABG pO2 56.0 L ABG HCO3 47.1 H ABG O2 Saturation 93.3 L ABG Base Excess 20.1 H ABG Hemoglobin 8.0 L Oxyhemoglobin 91.8 L Sodium Potassium Chloride 96.2 L Carbon Dioxide 40 H BUN 24 H Creatinine < 0.2 L Glucose 125 H POC Glucose Calcium 8.3 L Phosphorus Magnesium Total Creatine Kinase CK-MB (CK-2) Rel Index Troponin T C-Reactive Protein Total Protein Albumin LDL Cholesterol Direct Urine WBC (Auto) 04/19/22 04/20/22 04/20/22 12:02 00:40 04:49 WBC 14.7 H RBC 3.36 L Hgb 10.3 L Hct 32.0 L MCV 95 H MCHC RDW Plt Count Lymph % (Auto) Boyd % (Auto) Lymph # (Auto) Boyd # (Auto) Seg Neutrophils % Seg Neuts % (Manual) Lymphocytes % (Manual) Seg Neutrophils # Seg Neutrophils # Man Lymphocytes # (Manual) PT INR ABG pH ABG pO2 ABG HCO3 ABG O2 Saturation ABG Base Excess ABG Hemoglobin Oxyhemoglobin Sodium Potassium Chloride Carbon Dioxide BUN Creatinine Glucose POC Glucose 124 H 140 H Calcium Phosphorus Magnesium Total Creatine Kinase CK-MB (CK-2) Rel Index Troponin T C-Reactive Protein Total Protein Albumin LDL Cholesterol Direct Urine WBC (Auto) 04/20/22 04/20/22 04/21/22 05:36 11:40 04:05 WBC RBC Hgb Hct MCV MCHC RDW Plt Count Lymph % (Auto) Boyd % (Auto) Lymph # (Auto) Boyd # (Auto) Seg Neutrophils % Seg Neuts % (Manual) Lymphocytes % (Manual) Seg Neutrophils # Seg Neutrophils # Man Lymphocytes # (Manual) PT INR ABG pH ABG pO2 ABG HCO3 ABG O2 Saturation ABG Base Excess ABG Hemoglobin Oxyhemoglobin Sodium Potassium Chloride 93.4 L Carbon Dioxide 40 H BUN 25 H Creatinine < 0.2 L Glucose 122 H POC Glucose 125 H 128 H Calcium Phosphorus Magnesium Total Creatine Kinase CK-MB (CK-2) Rel Index Troponin T C-Reactive Protein Total Protein Albumin LDL Cholesterol Direct Urine WBC (Auto) 04/21/22 04/22/22 04/22/22 10:31 05:03 05:03 WBC 12.6 H 12.7 H RBC 2.83 L 2.96 L Hgb 8.6 L 9.0 L Hct 26.9 L 28.0 L MCV 95 H 95 H MCHC RDW Plt Count Lymph % (Auto) Boyd % (Auto) Lymph # (Auto) Boyd # (Auto) Seg Neutrophils % Seg Neuts % (Manual) Lymphocytes % (Manual) Seg Neutrophils # Seg Neutrophils # Man Lymphocytes # (Manual) PT INR ABG pH ABG pO2 ABG HCO3 ABG O2 Saturation ABG Base Excess ABG Hemoglobin Oxyhemoglobin Sodium Potassium Chloride 93.9 L Carbon Dioxide 43 H* BUN 23 H Creatinine < 0.2 L Glucose 137 H POC Glucose Calcium Phosphorus Magnesium Total Creatine Kinase CK-MB (CK-2) Rel Index Troponin T C-Reactive Protein Total Protein Albumin LDL Cholesterol Direct Urine WBC (Auto) 04/22/22 04/23/22 04/24/22 08:34 09:40 04:29 WBC 14.4 H RBC 2.74 L Hgb 8.4 L Hct 25.7 L MCV MCHC RDW Plt Count Lymph % (Auto) Boyd % (Auto) Lymph # (Auto) Boyd # (Auto) Seg Neutrophils % Seg Neuts % (Manual) Lymphocytes % (Manual) Seg Neutrophils # Seg Neutrophils # Man Lymphocytes # (Manual) PT INR ABG pH ABG pO2 54.1 L 56.8 L ABG HCO3 48.5 H 49.0 H ABG O2 Saturation 92.1 L 90.9 L ABG Base Excess 20.9 H 20.8 H ABG Hemoglobin 9.0 L 8.4 L Oxyhemoglobin 90.6 L 89.5 L Sodium Potassium Chloride Carbon Dioxide BUN Creatinine Glucose POC Glucose Calcium Phosphorus Magnesium Total Creatine Kinase CK-MB (CK-2) Rel Index Troponin T C-Reactive Protein Total Protein Albumin LDL Cholesterol Direct Urine WBC (Auto) 04/24/22 04/25/22 04/26/22 04:29 09:00 04:22 WBC RBC 2.88 L Hgb 8.9 L Hct 26.8 L MCV MCHC RDW Plt Count Lymph % (Auto) Boyd % (Auto) Lymph # (Auto) Boyd # (Auto) Seg Neutrophils % Seg Neuts % (Manual) Lymphocytes % (Manual) Seg Neutrophils # Seg Neutrophils # Man Lymphocytes # (Manual) PT INR ABG pH 7.457 H ABG pO2 66.7 L ABG HCO3 42.6 H ABG O2 Saturation ABG Base Excess 15.3 H ABG Hemoglobin 8.8 L Oxyhemoglobin 94.1 L Sodium Potassium Chloride 90.7 L Carbon Dioxide 40 H BUN Creatinine < 0.2 L Glucose 133 H POC Glucose Calcium Phosphorus Magnesium Total Creatine Kinase CK-MB (CK-2) Rel Index Troponin T C-Reactive Protein Total Protein Albumin LDL Cholesterol Direct Urine WBC (Auto) 04/26/22 04/29/22 04/29/22 04:22 04:18 04:18 WBC 13.5 H RBC 2.96 L Hgb 8.9 L Hct 27.7 L MCV MCHC RDW Plt Count Lymph % (Auto) Boyd % (Auto) Lymph # (Auto) Boyd # (Auto) Seg Neutrophils % Seg Neuts % (Manual) Lymphocytes % (Manual) Seg Neutrophils # Seg Neutrophils # Man Lymphocytes # (Manual) PT INR ABG pH ABG pO2 ABG HCO3 ABG O2 Saturation ABG Base Excess ABG Hemoglobin Oxyhemoglobin Sodium Potassium Chloride 93.2 L 95.2 L Carbon Dioxide 37 H 38 H BUN Creatinine < 0.2 L < 0.2 L Glucose 114 H 116 H POC Glucose Calcium Phosphorus Magnesium Total Creatine Kinase CK-MB (CK-2) Rel Index Troponin T C-Reactive Protein Total Protein Albumin LDL Cholesterol Direct Urine WBC (Auto) 05/02/22 05/03/22 05/03/22 04:29 04:02 04:02 WBC 12.9 H 12.3 H RBC 2.82 L 2.83 L Hgb 8.4 L 8.4 L Hct 26.2 L 26.0 L MCV MCHC RDW Plt Count Lymph % (Auto) Boyd % (Auto) Lymph # (Auto) Boyd # (Auto) Seg Neutrophils % Seg Neuts % (Manual) Lymphocytes % (Manual) Seg Neutrophils # Seg Neutrophils # Man Lymphocytes # (Manual) PT INR ABG pH ABG pO2 ABG HCO3 ABG O2 Saturation ABG Base Excess ABG Hemoglobin Oxyhemoglobin Sodium 134 L Potassium Chloride 90.5 L Carbon Dioxide 38 H BUN 21 H Creatinine < 0.2 L Glucose 126 H POC Glucose Calcium Phosphorus Magnesium Total Creatine Kinase CK-MB (CK-2) Rel Index Troponin T C-Reactive Protein Total Protein Albumin LDL Cholesterol Direct Urine WBC (Auto) 05/03/22 05/03/22 05/04/22 12:02 17:42 09:36 WBC RBC Hgb Hct MCV MCHC RDW Plt Count Lymph % (Auto) Boyd % (Auto) Lymph # (Auto) Boyd # (Auto) Seg Neutrophils % Seg Neuts % (Manual) Lymphocytes % (Manual) Seg Neutrophils # Seg Neutrophils # Man Lymphocytes # (Manual) PT INR ABG pH ABG pO2 55.4 L ABG HCO3 43.7 H ABG O2 Saturation 87.4 L ABG Base Excess 16.1 H ABG Hemoglobin 9.1 L Oxyhemoglobin 85.7 L Sodium Potassium Chloride Carbon Dioxide BUN Creatinine Glucose POC Glucose 139 H 131 H Calcium Phosphorus Magnesium Total Creatine Kinase CK-MB (CK-2) Rel Index Troponin T C-Reactive Protein Total Protein Albumin LDL Cholesterol Direct Urine WBC (Auto) 05/04/22 05/04/22 05/05/22 17:08 23:10 04:23 WBC 14.4 H RBC 2.75 L Hgb 8.2 L Hct 25.2 L MCV MCHC RDW Plt Count Lymph % (Auto) Boyd % (Auto) Lymph # (Auto) Boyd # (Auto) Seg Neutrophils % Seg Neuts % (Manual) Lymphocytes % (Manual) Seg Neutrophils # Seg Neutrophils # Man Lymphocytes # (Manual) PT INR ABG pH ABG pO2 ABG HCO3 ABG O2 Saturation ABG Base Excess ABG Hemoglobin Oxyhemoglobin Sodium Potassium Chloride Carbon Dioxide BUN Creatinine Glucose POC Glucose 124 H 115 H Calcium Phosphorus Magnesium Total Creatine Kinase CK-MB (CK-2) Rel Index Troponin T C-Reactive Protein Total Protein Albumin LDL Cholesterol Direct Urine WBC (Auto) 05/05/22 05/05/22 05/06/22 04:23 21:39 05:13 WBC RBC Hgb Hct MCV MCHC RDW Plt Count Lymph % (Auto) Boyd % (Auto) Lymph # (Auto) Boyd # (Auto) Seg Neutrophils % Seg Neuts % (Manual) Lymphocytes % (Manual) Seg Neutrophils # Seg Neutrophils # Man Lymphocytes # (Manual) PT INR ABG pH ABG pO2 ABG HCO3 ABG O2 Saturation ABG Base Excess ABG Hemoglobin Oxyhemoglobin Sodium Potassium Chloride 91.3 L Carbon Dioxide 38 H BUN 23 H Creatinine < 0.2 L Glucose 128 H POC Glucose 141 H 136 H Calcium Phosphorus Magnesium Total Creatine Kinase CK-MB (CK-2) Rel Index Troponin T C-Reactive Protein Total Protein Albumin LDL Cholesterol Direct Urine WBC (Auto) 05/07/22 05/07/22 05/08/22 05:29 22:15 05:48 WBC RBC Hgb Hct MCV MCHC RDW Plt Count Lymph % (Auto) Boyd % (Auto) Lymph # (Auto) Boyd # (Auto) Seg Neutrophils % Seg Neuts % (Manual) Lymphocytes % (Manual) Seg Neutrophils # Seg Neutrophils # Man Lymphocytes # (Manual) PT INR ABG pH ABG pO2 ABG HCO3 ABG O2 Saturation ABG Base Excess ABG Hemoglobin Oxyhemoglobin Sodium Potassium Chloride Carbon Dioxide BUN Creatinine Glucose POC Glucose 125 H 142 H 122 H Calcium Phosphorus Magnesium Total Creatine Kinase CK-MB (CK-2) Rel Index Troponin T C-Reactive Protein Total Protein Albumin LDL Cholesterol Direct Urine WBC (Auto) 05/08/22 05/08/22 05/09/22 14:04 21:48 15:15 WBC RBC 2.61 L Hgb 7.7 L Hct 23.2 L MCV MCHC RDW Plt Count Lymph % (Auto) 8.1 L Boyd % (Auto) Lymph # (Auto) 0.9 L Boyd # (Auto) Seg Neutrophils % 86.1 H Seg Neuts % (Manual) Lymphocytes % (Manual) Seg Neutrophils # 9.2 H Seg Neutrophils # Man Lymphocytes # (Manual) PT INR ABG pH ABG pO2 ABG HCO3 ABG O2 Saturation ABG Base Excess ABG Hemoglobin Oxyhemoglobin Sodium Potassium Chloride Carbon Dioxide BUN Creatinine Glucose POC Glucose 112 H 107 H Calcium Phosphorus Magnesium Total Creatine Kinase CK-MB (CK-2) Rel Index Troponin T C-Reactive Protein Total Protein Albumin LDL Cholesterol Direct Urine WBC (Auto) 05/09/22 05/09/22 05/09/22 15:15 15:39 21:15 WBC RBC Hgb Hct MCV MCHC RDW Plt Count Lymph % (Auto) Boyd % (Auto) Lymph # (Auto) Boyd # (Auto) Seg Neutrophils % Seg Neuts % (Manual) Lymphocytes % (Manual) Seg Neutrophils # Seg Neutrophils # Man Lymphocytes # (Manual) PT INR ABG pH ABG pO2 ABG HCO3 ABG O2 Saturation ABG Base Excess ABG Hemoglobin Oxyhemoglobin Sodium Potassium Chloride 92.9 L Carbon Dioxide 40 H BUN Creatinine < 0.2 L Glucose 141 H POC Glucose 118 H 112 H Calcium Phosphorus Magnesium Total Creatine Kinase CK-MB (CK-2) Rel Index Troponin T C-Reactive Protein Total Protein Albumin LDL Cholesterol Direct Urine WBC (Auto) 05/10/22 05/12/22 05/13/22 15:14 00:25 04:02 WBC 13.3 H RBC 3.14 L Hgb 8.7 L Hct 28.0 L MCV MCHC 31 L RDW Plt Count Lymph % (Auto) Boyd % (Auto) Lymph # (Auto) Boyd # (Auto) Seg Neutrophils % Seg Neuts % (Manual) Lymphocytes % (Manual) Seg Neutrophils # Seg Neutrophils # Man Lymphocytes # (Manual) PT INR ABG pH ABG pO2 ABG HCO3 ABG O2 Saturation ABG Base Excess ABG Hemoglobin Oxyhemoglobin Sodium Potassium Chloride Carbon Dioxide BUN Creatinine Glucose POC Glucose 113 H 158 H Calcium Phosphorus Magnesium Total Creatine Kinase CK-MB (CK-2) Rel Index Troponin T C-Reactive Protein Total Protein Albumin LDL Cholesterol Direct Urine WBC (Auto) 05/13/22 05/13/22 05/13/22 04:02 06:32 13:09 WBC RBC Hgb Hct MCV MCHC RDW Plt Count Lymph % (Auto) Boyd % (Auto) Lymph # (Auto) Boyd # (Auto) Seg Neutrophils % Seg Neuts % (Manual) Lymphocytes % (Manual) Seg Neutrophils # Seg Neutrophils # Man Lymphocytes # (Manual) PT INR ABG pH ABG pO2 ABG HCO3 ABG O2 Saturation ABG Base Excess ABG Hemoglobin Oxyhemoglobin Sodium 135 L Potassium Chloride 91.1 L Carbon Dioxide 40 H BUN 23 H Creatinine < 0.2 L Glucose 139 H POC Glucose 129 H 117 H Calcium Phosphorus Magnesium Total Creatine Kinase CK-MB (CK-2) Rel Index Troponin T C-Reactive Protein Total Protein Albumin LDL Cholesterol Direct Urine WBC (Auto) 05/13/22 05/14/22 05/14/22 21:28 05:44 07:35 WBC RBC Hgb Hct MCV MCHC RDW Plt Count Lymph % (Auto) Boyd % (Auto) Lymph # (Auto) Boyd # (Auto) Seg Neutrophils % Seg Neuts % (Manual) Lymphocytes % (Manual) Seg Neutrophils # Seg Neutrophils # Man Lymphocytes # (Manual) PT INR ABG pH ABG pO2 ABG HCO3 ABG O2 Saturation ABG Base Excess ABG Hemoglobin Oxyhemoglobin Sodium Potassium Chloride Carbon Dioxide BUN Creatinine Glucose POC Glucose 109 H 130 H 125 H Calcium Phosphorus Magnesium Total Creatine Kinase CK-MB (CK-2) Rel Index Troponin T C-Reactive Protein Total Protein Albumin LDL Cholesterol Direct Urine WBC (Auto) 05/14/22 05/14/22 05/15/22 16:26 23:44 10:44 WBC 13.9 H RBC 2.71 L Hgb 7.5 L Hct 23.5 L MCV MCHC RDW 15.9 H Plt Count Lymph % (Auto) Boyd % (Auto) Lymph # (Auto) Boyd # (Auto) Seg Neutrophils % Seg Neuts % (Manual) Lymphocytes % (Manual) Seg Neutrophils # Seg Neutrophils # Man Lymphocytes # (Manual) PT INR ABG pH ABG pO2 ABG HCO3 ABG O2 Saturation ABG Base Excess ABG Hemoglobin Oxyhemoglobin Sodium Potassium Chloride Carbon Dioxide BUN Creatinine Glucose POC Glucose 112 H 189 H Calcium Phosphorus Magnesium Total Creatine Kinase CK-MB (CK-2) Rel Index Troponin T C-Reactive Protein Total Protein Albumin LDL Cholesterol Direct Urine WBC (Auto) 05/15/22 10:44 WBC RBC Hgb Hct MCV MCHC RDW Plt Count Lymph % (Auto) Boyd % (Auto) Lymph # (Auto) Boyd # (Auto) Seg Neutrophils % Seg Neuts % (Manual) Lymphocytes % (Manual) Seg Neutrophils # Seg Neutrophils # Man Lymphocytes # (Manual) PT INR ABG pH ABG pO2 ABG HCO3 ABG O2 Saturation ABG Base Excess ABG Hemoglobin Oxyhemoglobin Sodium 135 L Potassium 3.3 L D Chloride 91.5 L Carbon Dioxide 33 H D BUN 21 H Creatinine < 0.2 L Glucose 118 H POC Glucose Calcium 7.9 L Phosphorus Magnesium Total Creatine Kinase CK-MB (CK-2) Rel Index Troponin T C-Reactive Protein Total Protein Albumin LDL Cholesterol Direct Urine WBC (Auto) Chest x-ray: image reviewed (No new infiltrates) Allied health notes reviewed: RT
[2022-05-15] MEDS: ACETAMINOPHEN 325 MG TAB PO PRN (18:32)
[2022-05-15 21:35] LABS: Bilirubin,Urine NEG (Negative); Blood,Urine NEG (Negative); Color,Urine Yellow (Yellow); Protein,Urine <15 mg/dL mg/dL (Negative)
[2022-05-15 21:40] LABS: Bacteria,Urine 1+ /HPF (Negative); Mucus,Urine FEW /HPF
[2022-05-16] MEDS ORDERED: SODIUM CHLORIDE 0.9% 1000 ML 1,000 ML IV ONE (04:33)
[2022-05-16] MEDS: ACETAMINOPHEN 325 MG TAB PO PRN ×2 (05:09→12:38)
[2022-05-16] MEDS: CEFEPIME/NS 2 GM/100 ML 2 GM/100 ML BAG IV SCH ×2 (05:09→17:32)
[2022-05-16] MEDS: HEPARIN 5,000 UNIT/1 ML VIAL SUB-Q SCH ×3 (05:09→21:34)
[2022-05-16] MEDS: METOPROLOL TARTRATE 25 MG TAB FEEDTUBE SCH ×3 (07:11→17:32)
[2022-05-16] MEDS: INSULIN LISPRO 100 UNIT/ML SUB-Q SCH ×3 (07:12→22:45)
[2022-05-16] MEDS: ACETYLCYSTEINE 20% 200 MG/1 ML *FOR INHALATION USE INHALATION SCH ×2 (08:13→20:22)
[2022-05-16] MEDS: ALBUTEROL 2.5 MG/3 ML NEBU IH SCH ×2 (08:13→20:22)
[2022-05-16] MEDS: FAMOTIDINE 20 MG TAB FEEDTUBE SCH ×2 (10:00→21:35)
[2022-05-16] MEDS: QUEtiapine 100 MG TAB FEEDTUBE SCH ×2 (10:00→21:34)
--- NOTE | 2022-05-16 11:24 | Progress Note ---
Assessment and Plan Assessment and plan: This is a 57-year-old male with known history of ALS, recently hospitalized at [facility] admitted for acute hypoxemic respiratory failure 2/2 pneumonia Hospital Course to Date: 04/03: Intubated and Sedated on versed gtt, RASS-5. CT head/brain noted with no acute intracranial abnormality. Plan to initiated precededx gtt and wean off versed for a RASS goal of 0 to -2. CT chect also reviewed, findings are most consistent with acute bronchopneumonia. Continue empiric IV Abx, vent adjustment per CCM. ID consulted. Continue to F/U on cultures. Titrate pressor for MAP ab ove 65. Medical records requested from [facility]. 04/04: Remains stable on the vent, easily arousable on precedex gtt, not following commands. Plan for SAT/SBT today. PRN analgesia for CPOT greater than 3. Fevers improved, cultures and procal pending. Continue current IV abx, ID also consulted. Remains on low dose pressors, titrate pressors for a MAP above 65. 04/05: Long discussion with family with use of translation phone with CCM regarding goals of care. Family to have meeting amongst themselves and informed care team of decisions. Fentanyl drip added for respiratory distress. Remains on Precedex drip. Antibiotics per ID. Given 2L NS bolus with levophed gtt 04/06: Family discussion with Dr. Grayson for goals of care. CXR shows possible mucus plug, continue CPT as FiO2 is being able to be weaned. Potassium repleted. Weaning fentnyl gtt. 04/07: Ultrasound guided thoracentesis today scheduled, inadequate amount of pleural effusion on so not completed. Patient was started on Levophed overnight which was weaned off this morning however had to be started twice a day. Remain s on fentanyl and Precedex. Cardiology discontinued BB and ACEi in setting of hypotension. 04/08: COVID-19 PCR negative. Routine EEG ordered by cardiology which showed ST changes, cardiology aware. They will continue conservative treatment. Repeat troponins 0.030 which are less than admit of 0.048. Dr. Grayson had a long discussion with with the use of it consultant today at bedside and has not made a decision regarding goals of care. Possible consult to surgery for trach/PEG early next week. Continues to require Precedex and fentanyl drip for sedation. Carvedilol/lisinopril discontinued as patient is continuously on Levophed. 04/09: No acute events reported overnight, remains on fentanyl, Precedex and Levophed drips. Dr. Grayson and Dr. Pineda updated family at bedside exte nsively today. Consulted surgery for trach/PEG. COVID-19 PCR negative. 04/10: Patient noted to have desaturation episodes, FiO2 increased slightly to 35%. Will add Mucomyst. Remains on fentanyl and Precedex. Off of Levophed. Surgery consulted for trach/PEG. 04/11: FiO2 increased over night likely related to hypoxia, continues on fent gtt, weaning precedex gtt as he is also on Seroquel. Will d/w CCM re scheduled or prn oxycodone 04/12: Periods of hypoxia and tachycardia this am. Symptoms improved post deep suction and tracheal lavage, Repeat CXR noted with no significant change. Continue CPT and mucomyst. Plan for possible trach/PEG tomorrow by general surgery. 04/13: Remains stable on the vent. Patient is wake and tracking but does not follow simple commands. No report of hypoxia from overnight, continue CPT and mucomyst. Plan for track and PEG today by General Surgery. Plan for LTAC placement post procedure, case management to arrange. 04/14: VIRGILIO overnight, Trach and PEG postponed for today by general surgery. Plan for LTAC placement post procedure, case management to arrange. 04/15: S/p Trach and PEG. Up to 80% FiO2 this am, this am CXR noted suggesting possible mucus plug. D/W [facility] plan for bronch today. Continue CPT and mucomyst. Plan of care thoroughly discussed with patient's and son (who translated for ) at the bedside. Per , hospitality workers had already discussed the risks and benefits of the procedure yesterday. She verbalized understanding and agreed with procedure and current care plan, consent signed. Okay to use PEG-tube for meds this am, resume TF once okay by general Surgery. Case management to arrange LTAC placement. 04/16: s/p Bronchocopy by [facility]. FiO2 down to 60%, angela 10 this am. This am CXR with moderate improvement. Continue CPT and mucomyst, wean Fio2 as tolerated for SPO2 above 92%. Patient is tolerating TF, advance to goal as ordered. Possible LTAC placement, case management to arrange. 04/17: VIRGILIO overnight. remains stable on the vent, recent CXR and this am ABG noted. Continue CPT and mucomyst, wean Fio2 as tolerated. 04/18: Remains stable on the vent, Fio2 down to 55% and peep of 8 this am. Continue to wean as tolerated, CPT, and mucomyst. Dsiposition- LTAC placement, case management to arrange. 04/19: No acute events overnight. Continue current management. 04/20: No acute events overnight, continue current management 04/21: Patient had chest ultrasound which showed trace pleural effusions, chest x-ray improved after the addition of Mucomyst yesterday. FiO2 55-65%. No acute events overnight. more interactive today. 04/22: Seroquel changed to BID, FiO2 was increased to 60%. RT increased FIO2 to 100 d/t desaturation into the 80s but was able to wean down. CCM increased PEEP and decreased FiO2. 04/23: CCM increase PEEP, no acute events reported overnight. 04/24: Spoke to RT about decreasing FiO2 as tolerated. No acute events reported overnight. Continue supportive management. 04/25: Weaning as tolerated. no acute events overnight. RT to attempt CPAP again today 04/26: VIRGILIO overnight. Patient failed PSV trial again this morning. Continue supportive management and daily PST trial. 04/27: Patient failed PSV trial again this am due to episodes of apnea. Continue daily PSV trial as tolerated. Case management to arrange LTAC placement 04/28: Remains stable. Continue daily PSV trial as tolerated. Awaiting approval for LTAC 04/29: VIRGILIO overnight. Continue daily PSV trial. Awaiting approval for LTAC, case management to arrange. 04/30: Patient continue to fail PSV trial. Per case management patient was denied for LTAC, now possible SNF placement. Case managemen to arrange. Continue supportive measures and daily PSV trial as tolerated. 05/01: VIRGILIO overnight. Continue supportive measures and daily PSV trial as tolerated. Possible SNF placement. 05/02: Continue supportive measures and daily PSV trial as tolerated. Possible SNF placement, case management to arrange 05/03: no acute events overnight, CM arranging home vent setup. Family declined SNF. 05/04: RN/RT reports thin secretions, increase in FiO2 for decreased oxygen on ABG. No acute events overnight. 05/05: Family scheduled for teaching session today at 2pm. Increase in FiO2 overnight to 45%. Awaiting vent setup for home care for ventilation secondary to tracheostomy. 05/06: No acute events reported overnight, T-max 100.9. FiO2 45%. Awaiting discharge home with vent when teaching is completed 05/07: No acute events reported overnight, Awaiting discharge home with vent when teaching is completed 05/08: No acute events reported overnight, Awaiting discharge home with vent when teaching is completed 05/09: no acute events reported overnight. Ordered routine labs today. Family continuing with vent training. Anticipate discharge home this week possibly on Tuesday. 05/10: VIRGILIO overnight. Continue current supportive measures and family training at the bedside. Plan for discharge home tomorrow. 05/11: Discharge home today. 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 Patient desated on home vent at max setting. Home vent is not sufficient to support patient's ventilation need. D/w [facility], Dr. Valdivia, who recommend SNF placement at this time. Patient's family notified at the bedside. All questions and concerns were address at this time. Further discussion on alternative placement to be determine and discussed with patient's family and case management today. The respiratory therapist from [employer] coming is schedule to come at 1400 today for further assessment. 05/13: Tolerating home vent this amd. Recent CXR reviewed with no significant change. Patient's home vent settings were adjusted by [facility]. [employer] company respiratory therapist to come again today to make further adjusted to home vent. Plan is to optimize patient's on home vent for possible discharge home. 05/14: Patient continue to have periods of desaturations on home vent. Home vent setting adjusted and it was determined that patient require 12L to 15L of oxygen to maintain SPO2 goal above 88%. Will continue to optimized patient on home vent for possible discharge home on Tuesday. 05/15: Febrile overnight with hypotension and increased O2 requirement. s/p 500cc IVF bolus, and pancultured overnight. This am CXR reviewed, IV Abx- Cefepine initiated for now, pending cultures. 05/16: With persistent fever this morning. Hypotensive again overnight, additional s/p 500cc IVF bolus given. Continue current IV abx, cultures pending. Down to 8L flow on home today. Repeat CXR in the am. Guarded discharge for tomorrow. D/w CCM, patient need to be afebrile for at least 24hrs prior to discharge. Plan discussed with patient's and daughter at the bedside. Assessment and Plan #Acute Hypoxemic Respiratory Failure 2/ #Acute Bronchopneumonia - Intubated in the ED on 04/02 for hypoxemia and airway protection - 04/14 s/p Trach and PEG - 04/15 CXR reviewed complete opacity of the righ side suggesting possible mucus plug. See report for detail - 04/15 s/p Bronchoscopy by [facility] - Tolerating home vent this am, SPO2 at 95% - CCM consulted, appreciate recommendations - Multiple failed vent wean - Continue CPT and mucomyst per [facility] - VAP bundle addressed - Aspiration precaution HOB above 30 - PRN ABG and CXR per CCM - Continue SPO2 monitoring for SPO2 goal above 92% #Sepsis #Acute Bronchopneumonia #HCAP #Leukocytosis - CXR shows moderate to large layering effusion on the right, see report for full detail - CT chest also reviewed, findings are most consistent with acute bronchopneumonia. See report for full detail - Tracheal aspirate with Pseudomonas aeruginosa, Enterobacter aerogenes - 04/02 blood culture with bacillus species, 04/05 blood culture NGTD - Patient completed [id number] of Cefepine - CRP 31.6, procalcitonin 0.08 - MRSA negative - Febrile with leukocytosis, hypotension, and tachycardia - Repeat cultures and procal pending - IV Abx- Cefepine restarted - Daily CBC monitor - Consider re-consulting ID if persist #Suspect ischemic coronary artery disease #h/o cardiomyopathy - Low BP probably due to hypovolemia vs sedation vs infectious process - s/p Levophed gtt - Elevated troponin possibly a type II troponin leak - Cardiology consulted, appreciated recommendations - Echocardiogram shows ejection fraction of 40 to 45%, mild global hypokinesis of left ventricle - Continue BB - Continue blood pressure monitor per protocol - Maintain MAP above 65 - On heparin SubQ #H/o Amyotrophic Lateral Sclerosis #Acute Metabolic Encephalopathy-resolved #Nonverbal at Baseline - Presented with AMS, per family patient is nonverbal at baseline but responsive - CT head/Brain with no acute intracranial process - Off sedation. Awake and calm - Continue Seroquel per CCM - Avoid benzodiazepine to reduce the possibility of delirium - PRN analgesia for CPOT greater than 3 - Maintenance of sleep-wake cycle #Thrombocytopenia-resolved - Continue to trend plt - On heparin subQ - Monitor for s/s of any active bleeding #Hypernatremia-resolved - Monitor and replace electrolytes as needed - Continue to trend BMP #Protein Caloric Malnutrition - Albumin 2.7, Total protein 4.6 - 04/15 s/p EPG-Tube placement - Continue enteral nutrition - Nutrition consulted #Constipation - Noted on CXR and KUB - Continue BR #GI/DVT Prophylaxis - PPI- Pepcid - Heparin SubQ - SCDs to bilateral lower extremities while in bed #Advance Care Planning - Disease education data, care plan, diagnoses, and prognosis were discussed patient's , Carly Lopez, and patient daughter, Kaylee Warren, who translated for #[phone]. They reported that patient was following at [facility] for his ALS and during recent hospitalization at [facility] they were told nothing else can be offered to patient at this time and patient was discharge home with home hospice and PO morphine. First hospice visit was on , however, patient became unresponsive yesterday and they brought in to the hospital. - Goal of care and code status were also addressed at that time. Family wants to wait for a couple days to see how patient respond to current treatment before making a decision. All questions and concerns were addressed at this time. Patient family acknowledged understanding and agreement with care plan. - Patient remains a FULL CODE status -04/05: Discussion at bedside with interpreting service with Dr. Valdivia and family state they would discuss next steps amongst themselves and let healthcare team know of decisions -04/06: extensive discussion with family ( and son) with Dr. Grayson regarding goals of care -04/08: Extensive discussion with with the use of it consultant line regarding goals of care; no decision made. Possible consult to surgery for trach/PEG early next week. -04/09: Discussion with and her sister with Dr. Grayson and then with Dr. Pineda-> Consulted surgery for trach/peg -04/30 Insurance Denied LTAC, plan for possible SNF placemenet now. Case management to arrange -05/12: Discharge cancelled yesterday. Patient desated on home vent at max set ting. Home vent is not sufficient to support patient's ventilation need. -05/13: Adjustement made to home vent. Plan to optimize patient for possible discharge home. The high probability of a clinically significant, sudden or life threatening deterioration of the [multiple] system(s) required my full and direct attention, intervention and personal management. The aggregate critical care time was [60] minutes. This time is in addition to time spent performing reported procedures but includes the following: [x] Data Review and interpretation [x] Patient assessment and monitoring of vital signs [x] Documentation [x] Medication orders and management Disposition Plan: ICU Total Time Spent with Patient (Minutes): 60 History Interval history: Patient seen and examined at the bedside. Remains Febrile. Severe hypotension and tachycardic overnight, 500cc NS bolus given, BP improved this am. ST on the monitor. Stable on home vent this am, down to 8L flow. Vent setting unchanged Vt-500 and PEEP 12. Patient remains awake and alert, following simple commands Hospitalist Physical - Physical exam Narrative exam: General appearance: Present: no acute distress, cachectic, other (Trach and on the vent.Awake and tracking, following simple commands) - EENT Eyes: Present: PERRL - Neck Neck: Present: normal ROM - Respiratory Respiratory effort: normal Respiratory: bilateral: rhonchi - Cardiovascular Rhythm: regular Heart Sounds: Present: S1 & S2 - Extremities Extremities: no ischemia, pulses intact, pulses symmetrical Peripheral Pulses: within normal limits - Abdominal General gastrointestinal: soft, non-distended, normal bowel sounds - Integumentary Integumentary: Present: warm, dry - Psychiatric Psychiatric: other (Trach and on the vent. Awake and tracking, following simple commands) - Neurologic Neurologic: other (Trach and on the vent. Awake and tracking, following simple commands) - Allied Health Allied health notes reviewed: nursing, case management - Constitutional Vitals: Temp Pulse Resp BP Pulse Ox 101.2 F H 96 H 16 90/50 95 05/16/22 08:00 05/16/22 10:00 05/16/22 10:00 05/16/22 10:00 05/16/22 10:00 HEART Score - HEART Score Troponin: Troponin T 0.031 ng/mL (0.00-0.029) H 04/08/22 17:47 Results - Labs CBC & Chem 7: 05/15/22 10:44 05/15/22 10:44 Labs: Laboratory Last Values WBC 13.9 K/mm3 (4.5-11.0) H 05/15/22 10:44 RBC 2.71 M/mm3 (3.65-5.03) L 05/15/22 10:44 Hgb 7.5 gm/dl (11.8-15.2) L 05/15/22 10:44 Hct 23.5 % (35.5-45.6) L 05/15/22 10:44 MCV 87 fl (84-94) 05/15/22 10:44 MCH 28 pg (28-32) 05/15/22 10:44 MCHC 32 % (32-34) 05/15/22 10:44 RDW 15.9 % (13.2-15.2) H 05/15/22 10:44 Plt Count 333 K/mm3 (140-440) 05/15/22 10:44 Lymph % (Auto) 8.1 % (13.4-35.0) L 05/09/22 15:15 [place] % (Auto) 4.9 % (0.0-7.3) 05/09/22 15:15 Eos % (Auto) 0.6 % (0.0-4.3) 05/09/22 15:15 Baso % (Auto) 0.3 % (0.0-1.8) 05/09/22 15:15 Lymph # (Auto) 0.9 K/mm3 (1.2-5.4) L 05/09/22 15:15 [place] # (Auto) 0.5 K/mm3 (0.0-0.8) 05/09/22 15:15 Eos # (Auto) 0.1 K/mm3 (0.0-0.4) 05/09/22 15:15 Baso # (Auto) 0.0 K/mm3 (0.0-0.1) 05/09/22 15:15 Add Manual Diff Complete 04/02/22 19:39 Total Counted 100 04/02/22 19:39 Seg Neutrophils % 86.1 % (40.0-70.0) H 05/09/22 15:15 Seg Neuts % (Manual) 94.0 % (40.0-70.0) H 04/02/22 19:39 Band Neutrophils % 0 % 04/02/22 19:39 Lymphocytes % (Manual) 1.0 % (13.4-35.0) L 04/02/22 19:39 Reactive Lymphs % (Man) 0 % 04/02/22 19:39 Monocytes % (Manual) 5.0 % (0.0-7.3) 04/02/22 19:39 Eosinophils % (Manual) 0 % (0.0-4.3) 04/02/22 19:39 Basophils % (Manual) 0 % (0.0-1.8) 04/02/22 19:39 Metamyelocytes % 0 % 04/02/22 19:39 Myelocytes % 0 % 04/02/22 19:39 Promyelocytes % 0 % 04/02/22 19:39 Blast Cells % 0 % 04/02/22 19:39 Nucleated RBC % Not Reportable 04/02/22 19:39 Seg Neutrophils # 9.2 K/mm3 (1.8-7.7) H 05/09/22 15:15 Seg Neutrophils # Man 13.4 K/mm3 (1.8-7.7) H 04/02/22 19:39 Band Neutrophils # 0.0 K/mm3 04/02/22 19:39 Lymphocytes # (Manual) 0.1 K/mm3 (1.2-5.4) L 04/02/22 19:39 Abs React Lymphs (Man) 0.0 K/mm3 04/02/22 19:39 Monocytes # (Manual) 0.7 K/mm3 (0.0-0.8) 04/02/22 19:39 Eosinophils # (Manual) 0.0 K/mm3 (0.0-0.4) 04/02/22 19:39 Basophils # (Manual) 0.0 K/mm3 (0.0-0.1) 04/02/22 19:39 Metamyelocytes # 0.0 K/mm3 04/02/22 19:39 Myelocytes # 0.0 K/mm3 04/02/22 19:39 Promyelocytes # 0.0 K/mm3 04/02/22 19:39 Blast Cells # 0.0 K/mm3 04/02/22 19:39 WBC Morphology Not Reportable 04/02/22 19:39 Hypersegmented Neuts Not Reportable 04/02/22 19:39 Hyposegmented Neuts Not Reportable 04/02/22 19:39 Hypogranular Neuts Not Reportable 04/02/22 19:39 Smudge Cells Not Reportable 04/02/22 19:39 Toxic Granulation Not Reportable 04/02/22 19:39 Toxic Vacuolation Not Reportable 04/02/22 19:39 Dohle Bodies Not Reportable 04/02/22 19:39 Pelger-Huet Anomaly Not Reportable 04/02/22 19:39 Terry Rods Not Reportable 04/02/22 19:39 Platelet Estimate Consistent w auto 04/02/22 19:39 Clumped Platelets Not Reportable 04/02/22 19:39 Plt Clumps, EDTA Not Reportable 04/02/22 19:39 Large Platelets Not Reportable 04/02/22 19:39 Giant Platelets Not Reportable 04/02/22 19:39 Platelet Satelliting Not Reportable 04/02/22 19:39 Plt Morphology Comment Not Reportable 04/02/22 19:39 RBC Morphology Not Reportable 04/02/22 19:39 Dimorphic RBCs Not Reportable 04/02/22 19:39 Polychromasia Not Reportable 04/02/22 19:39 Hypochromasia Not Reportable 04/02/22 19:39 Poikilocytosis Not Reportable 04/02/22 19:39 Anisocytosis 1+ 04/02/22 19:39 Microcytosis Not Reportable 04/02/22 19:39 Macrocytosis Not Reportable 04/02/22 19:39 Spherocytes Not Reportable 04/02/22 19:39 Pappenheimer Bodies Not Reportable 04/02/22 19:39 Sickle Cells Not Reportable 04/02/22 19:39 Target Cells Not Reportable 04/02/22 19:39 Tear Drop Cells Not Reportable 04/02/22 19:39 Ovalocytes Not Reportable 04/02/22 19:39 Helmet Cells Not Reportable 04/02/22 19:39 Patricio-Diamond Bodies Not Reportable 04/02/22 19:39 [place] Rings Not Reportable 04/02/22 19:39 [place] Cells Not Reportable 04/02/22 19:39 Bite Cells Not Reportable 04/02/22 19:39 Crenated Cell Not Reportable 04/02/22 19:39 Elliptocytes Not Reportable 04/02/22 19:39 Acanthocytes (Spur) Not Reportable 04/02/22 19:39 Rouleaux Not Reportable 04/02/22 19:39 Hemoglobin C Crystals Not Reportable 04/02/22 19:39 Schistocytes Not Reportable 04/02/22 19:39 Malaria parasites Not Reportable 04/02/22 19:39 [place] Bodies Not Reportable 04/02/22 19:39 Hem Pathologist Commnt No 04/02/22 19:39 PT 13.6 Sec. (12.2-14.9) 04/13/22 04:30 INR 0.94 (0.87-1.13) 04/13/22 04:30 APTT 35.7 Sec. (24.2-36.6) 04/07/22 03:51 ABG pH 7.383 pH Units (7.350-7.450) 05/04/22 09:36 ABG pCO2 75.0 mm Hg 05/04/22 09:36 ABG pO2 55.4 mm Hg (80.0-90.0) L 05/04/22 09:36 ABG HCO3 43.7 mmol/L (20.0-26.0) H 05/04/22 09:36 ABG O2 Saturation 87.4 % (95.0-99.0) L 05/04/22 09:36 ABG O2 Content 11.0 (0.0-44) 05/04/22 09:36 ABG Base Excess 16.1 mmol/L (-2.0-3.0) H 05/04/22 09:36 ABG Hemoglobin 9.1 gm/dl (14.0-18.0) L 05/04/22 09:36 ABG Carboxyhemoglobin 1.5 % (0.0-5.0) 05/04/22 09:36 ABG Methemoglobin 0.4 % (0.0-1.5) 05/04/22 09:36 Oxyhemoglobin 85.7 % (95.0-99.0) L 05/04/22 09:36 FiO2 30 % 05/04/22 09:36 Sodium 135 mmol/L (137-145) L 05/15/22 10:44 Potassium 3.3 mmol/L (3.6-5.0) L D 05/15/22 10:44 Chloride 91.5 mmol/L (98-107) L 05/15/22 10:44 Carbon Dioxide 33 mmol/L (22-30) H D 05/15/22 10:44 Anion Gap 14 mmol/L 05/15/22 10:44 BUN 21 mg/dL (9-20) H 05/15/22 10:44 Creatinine < 0.2 mg/dL (0.8-1.3) L 05/15/22 10:44 Estimated GFR > 60 ml/min 05/15/22 10:44 BUN/Creatinine Ratio 105 % 05/15/22 10:44 Glucose 118 mg/dL (75-100) H 05/15/22 10:44 POC Glucose 189 mg/dL (70-105) H 05/14/22 23:44 Lactic Acid 1.90 mmol/L (0.7-2.0) 04/02/22 19:39 Calcium 7.9 mg/dL (8.4-10.2) L 05/15/22 10:44 Phosphorus 3.40 mg/dL (2.5-4.5) 05/05/22 04:23 Magnesium 1.90 mg/dL (1.7-2.3) 05/05/22 04:23 Total Bilirubin 0.80 mg/dL (0.1-1.2) 04/02/22 19:39 AST 15 units/L (5-40) 04/02/22 19:39 ALT 9 units/L (7-56) 04/02/22 19:39 Alkaline Phosphatase 43 units/L (35-129) 04/02/22 19:39 Total Creatine Kinase 46 units/L (55-170) L 04/08/22 17:47 CK-MB (CK-2) 2.6 ng/mL (0.0-4.0) 04/08/22 17:47 CK-MB (CK-2) Rel Index 5.6 (0-4) H 04/08/22 17:47 Troponin T 0.031 ng/mL (0.00-0.029) H 04/08/22 17:47 C-Reactive Protein 31.60 mg/dL (0.00-1.30) H 04/04/22 04:18 Total Protein 4.6 g/dL (6.3-8.2) L 04/02/22 19:39 Albumin 2.7 g/dL (3.9-5) L 04/02/22 19:39 Albumin/Globulin Ratio 1.4 % 04/02/22 19:39 Triglycerides 80 mg/dL (2-149) 04/02/22 19:39 Cholesterol 94 mg/dL (50-199) 04/02/22 19:39 LDL Cholesterol Direct 27 mg/dL (50-130) L 04/02/22 19:39 HDL Cholesterol 47 mg/dL (40-59) 04/02/22 19:39 Cholesterol/HDL Ratio 2.00 % 04/02/22 19:39 Procalcitonin 0.08 ng/mL (<0.15) 04/04/22 04:18 Urine Color Yellow (Yellow) 05/15/22 16:00 Urine Turbidity Clear (Clear) 05/15/22 16:00 Urine pH 6.0 (5.0-7.0) 05/15/22 16:00 Ur Specific [place] 1.017 (1.003-1.030) 05/15/22 16:00 Urine Protein <15 mg/dl mg/dL (Negative) 05/15/22 16:00 Urine Glucose (UA) Neg mg/dL (Negative) 05/15/22 16:00 Urine Ketones Neg mg/dL (Negative) 05/15/22 16:00 Urine Blood Neg (Negative) 05/15/22 16:00 Urine Nitrite Pos (Negative) 05/15/22 16:00 Urine Bilirubin Neg (Negative) 05/15/22 16:00 Urine Urobilinogen 2.0 mg/dL (<2.0) 05/15/22 16:00 Ur Leukocyte Esterase Neg (Negative) 05/15/22 16:00 Urine WBC (Auto) 1.0 /HPF (0.0-6.0) 05/15/22 16:00 Urine RBC (Auto) 2.0 /HPF (0.0-6.0) 05/15/22 16:00 U Epithel Cells (Auto) < 1.0 /HPF (0-13.0) 05/15/22 16:00 Urine Bacteria (Auto) 1+ /HPF (Negative) 05/15/22 16:00 Hyaline Casts 1 /LPF 04/05/22 17:45 Urine Mucus Few /HPF 05/15/22 16:00 Nasal Screen MRSA (PCR) Negative (Negative) 04/05/22 12:37 Vancomycin Trough 6.0 ug/mL (5.0-20.0) 04/05/22 18:53 Coronavirus (PCR) Negative (Negative) 04/07/22 14:52 Microbiology: Microbiology 05/15/22 04:52 Peripheral/Venous Blood Culture - Preliminary NO GROWTH AFTER 24 HOURS 05/15/22 04:24 Peripheral/Venous Blood Culture - Preliminary NO GROWTH AFTER 24 HOURS Perez/IV: Voiding Method Condom Catheter Active Medications - Current Medications Current Medications: Generic Name Dose Route Start Last Admin Trade Name Freq PRN Reason Stop Dose Admin Acetaminophen 650 mg 04/02/22 23:53 05/16/22 05:09 Acetaminophen 325 Mg Tab PO 650 mg Q6H PRN Administration Pain MILD(1-3)/Fever >100.5/FAITH Acetylcysteine 200 mg 05/04/22 20:00 05/16/22 08:13 Acetylcysteine 20% 200 Mg/1 Ml *For Inhalation Use* INHALATION 200 mg Q12HRT SEGUNDO Administration Albuterol 2.5 mg 05/05/22 20:00 05/16/22 08:13 Albuterol 2.5 Mg/3 Ml Nebu IH 2.5 mg Q12HRT SEGUNDO Administration Bisacodyl 10 mg 04/07/22 09:44 04/12/22 10:06 Bisacodyl 10 Mg Rect Supp MS 10 mg QDAY PRN Administration Constipation Famotidine 20 mg 04/06/22 10:00 05/16/22 10:00 Famotidine 20 Mg Tab FEEDTUBE 20 mg BID SEGUNDO Administration Fentanyl 50 mcg 04/04/22 15:56 05/14/22 22:33 Fentanyl 100 Mcg/2 Ml Inj IV 50 mcg Q2HR PRN Administration For CPOT of greater than 3 Heparin Sodium (Porcine) 5,000 unit 04/03/22 06:00 05/16/22 05:09 Heparin 5,000 Unit/1 Ml Vial SUB-Q 5,000 unit Q8HR SEGUNDO Administration Cefepime HCl 2 gm in 100 mls @ 200 mls/hr 05/15/22 17:00 05/16/22 05:09 Cefepime/Ns 2 Gm/100 Ml IV 200 mls/hr Q12H SEGUNDO Administration Protocol Insulin Human Lispro 0 unit 05/05/22 06:00 05/16/22 07:12 Insulin Lispro 100 Unit/Ml SUB-Q Not Given Q8HR SEGUNDO Protocol Magnesium Hydroxide 30 ml 04/02/22 23:53 Magnesium Hydroxide (Mom) Oral Liqd Udc PO Q4H PRN Constipation Metoprolol Tartrate 12.5 mg 05/03/22 13:00 05/16/22 07:11 Metoprolol Tartrate 25 Mg Tab FEEDTUBE Not Given Q6HR SEGUNDO Ondansetron HCl 4 mg 04/02/22 23:53 Ondansetron 4 Mg/2 Ml Inj IV Q8H PRN Nausea And Vomiting Quetiapine Fumarate 50 mg 05/13/22 11:00 05/16/22 10:00 Quetiapine 100 Mg Tab FEEDTUBE 50 mg BID SEGUNDO Administration Scopolamine 1 each 05/12/22 09:00 05/15/22 09:07 Scopolamine Transdermal Patch 72 Hr TD 1 each Q3D SEGUNDO Administration Sodium Chloride 10 ml 04/03/22 10:00 05/16/22 10:01 Sodium Chloride 0.9% 10 Ml Flush Syringe IV 10 ml BID SEGUNDO Administration Sodium Chloride 10 ml 04/02/22 23:53 05/16/22 05:10 Sodium Chloride 0.9% 10 Ml Flush Syringe IV 10 ml PRN PRN Administration LINE FLUSH Nutrition/Malnutrition Assess - Dietary Evaluation Nutrition/Malnutrition Findings: Nutrition Notes Start: 04/04/22 13:13 Freq: Status: Active Protocol: Document 05/11/22 11:49 COLLEEN (Rec: 05/11/22 12:02 COLLEEN [email or web address]) Nutrition Notes Initial or Follow up Reassessment Current Diagnosis Coronary Artery Disease, Decubitus(Pressure Ulcer), Sepsis,Respiratory Failure, Malnutrition Other Pertinent Diagnosis HCAP, ALS, Broncopneumonia, NSTEMI, Cardiomyopathy, ... Current Diet TF-Vital AF 1.2 Inderjit @ 50 ml/hr (since D 04/15). Labs/Tests 05/09: Cl 92.9, CO2 40, Crea < 0.2, Glu 141. Pertinent Medications 05/11: Nutritionally unremarkable. Height 5 ft 4.8 in Weight 46.8 kg [place] Body Weight (kg) 61.27 BMI 17.2 Weight change and time frame No body weight change reported in 5 weeks. Weight Status Underweight Subjective/Other Information RD consult for routine F/U on TF tolerance/continuation. TF continues as prescribed, and well tolerated, according to RN notes. Pt continues on Mechanical ventilation, O2 saturation @ 93%, according to Physical Assessment Histroy notes. Pt will be discharged home with family; awaiting home- Vent family training to be over on 05/12, according to Progress notes. Percent of energy/protein needs met: Prescribed TF-Vital AF 1.2 Inderjit @ 50 ml/hr provides for energy/protein needs (1,450 Kcal/91 g) during LOS, 98% Kcal; 100% AA. Burn Absent Trauma Absent GI Symptoms Constipation Difficulty In Swallowing,Chewing Food Allergy No Skin Integrity/Comment Sacral open wound. Current % PO Other Minimum of two criteria No #1 Nutrition Diagnosis Inadequate oral intake Diagnosis Progress(for reassessment Continues documentation) Is patient on ventilator? Yes Is Patient Ambulatory and/or Out of Bed No REE-([place] [facility]-confined to bed) 5626.033 Calculation [facility] Additional Notes Protein: 1.2-2 g/Kg IBW; 73- 122 g/day. Fluids: 1 ml/Kcal, or as per MD. Nutrition Intervention Nutrition Support: Continue TF-Vital AF 1.2 Inderjit @ 50 ml/hr. Flush: 80 ml water Q 4 hr, or as per MD. Kcal 1,450 Protein (gm) 91 Carbohydrates (gm) 134 Fat (gm) 65 Fluid (mL) 980 Fiber (gm) 6 % RDI: 98% Kcal; 100% AA. Goal #1 Provide at least 75% of energy /protein needs through Enteral Feeding during LOS. Follow-Up By: 05/18/22 Additional Comments Continue monitoring TF tolerance and BM.
--- NOTE | 2022-05-16 15:52 | Progress Note ---
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 Right lung hemiopacification- Atelectasis s/p Bronchoscopy Oropharyngeal dysphagia s/p PEG Protein calorie malnutrition Acute Bronchopneumonia HCAP Hypotension NSTEMI H/o Amyotrophic Lateral Sclerosis Nonverbal at Baseline -Continue with empiric Cefepime; give Nsaline bolus 250ml x1 -Follow up cultures, trend temperature curve and WCC -Replace potassium- keep K >3.5; Mg at 2 and Phos >2.5 to optimize respiratory muscle function -Trach care, airway clearance, -continue with bronchodilators and chest PT -CXR,ABG as clinically indicated Chest PT- historically he has developed atelectasis every time we have stopped chest PT during his hospitalization. Continue with mucolytics and chest PT -Blood cultures negative to date Previous trach aspirate- Pseudomonas -Titrate supplemental oxygen to keep SpO2 89-92% -VAP bundle addressed, aspiration precautions HOB >40 -Monitoring renal function, hemodynamics and electrolyte profile -Accuchecks with glycemic control. target blood glucose 140-180 mg/dL. Avoid hypoglycemia -Continue enteric nutritional support, bowel regimen -VTE prophylaxis- Heparin -Avoid nephrotoxins and renally dose all medications -Stress ulcer prophylaxis- Famotidine -Mobility, frequent turning, off loading per facility protocol to prevent pressure ulcers -Maintain sleep wake cycle, avoid benzodiazepines. -Limit delirium CONDITION:CRITICAL PROGNOSIS: GUARDED CODE STATUS; FULL CODE The high probability of a clinically significant, sudden or life threatening deterioration of the respiratory, cardiovascular, neurology system required my full and direct attention, intervention and personal management. The aggregate critical care time was [33] minutes. This time is in addition to time spent performing reported procedures but includes the following: [x] Data Review and interpretation [x] Patient assessment and monitoring of vital signs [x] Documentation [x] Medication orders and management Subjective Date of service: 05/16/22 Principal diagnosis: Ac and ch hypercapnic and hypoxemic Resp Failure; ALS; HCAP; Sepsis; NSTEMI Interval history: Follow up for : Acute and chronic Respiratory Failure with Hypoxia and Hypercapnia 2/2 ALS;Protein calorie malnutrition;Acute Bronchopneumonia; HCAP; Hypotension; NSTEMI; Hypernatremia; Acute Metabolic Encephalopathy; H/o Am yotrophic Lateral Sclerosis Patient seen and examined. Vitals, labs, medications, chart and imaging reviewed. Discussed with respiratory and nursing care staff. s/p trach and PEG. On PEEP 12, Vt 500ml and 8L flow Febrile overnight with hypotension required another 500cc IVF bolus This morning he appears comfortable, SpO2 94-98% Blood pressure remains soft Objective Vital Signs - 12hr 05/16/22 05/16/22 05/16/22 04:00 05:00 06:00 Temperature 102.3 F H Pulse Rate 109 H 119 H 124 H Pulse Rate [ 108 H From Monitor] Respiratory 22 15 18 Rate Blood Pressure 73/51 105/72 93/52 O2 Sat by Pulse 93 95 96 Oximetry O2 Sat by Pulse Oximetry [ Assessment] 05/16/22 05/16/22 05/16/22 07:00 07:11 07:13 Temperature 102.2 F H Pulse Rate 115 H 106 H Pulse Rate [ From Monitor] Respiratory 23 Rate Blood Pressure 92/46 92/53 O2 Sat by Pulse 96 Oximetry O2 Sat by Pulse Oximetry [ Assessment] 05/16/22 05/16/22 05/16/22 08:00 09:00 10:00 Temperature 101.2 F H Pulse Rate 102 H 106 H 96 H Pulse Rate [ 108 H From Monitor] Respiratory 25 H 21 16 Rate Blood Pressure 88/43 89/46 90/50 O2 Sat by Pulse 95 95 95 Oximetry O2 Sat by Pulse 95 Oximetry [ Assessment] 05/16/22 05/16/22 05/16/22 11:00 12:00 12:23 Temperature 100.6 F H Pulse Rate 102 H 114 H Pulse Rate [ 108 H From Monitor] Respiratory 24 14 Rate Blood Pressure 87/53 104/53 O2 Sat by Pulse 95 95 Oximetry O2 Sat by Pulse Oximetry [ Assessment] 05/16/22 05/16/22 05/16/22 12:37 12:40 13:00 Temperature Pulse Rate 126 H 126 H 122 H Pulse Rate [ From Monitor] Respiratory 25 H Rate Blood Pressure 89/47 104/57 O2 Sat by Pulse 96 95 Oximetry O2 Sat by Pulse Oximetry [ Assessment] 05/16/22 05/16/22 05/16/22 14:00 15:00 15:08 Temperature Pulse Rate 112 H 106 H 106 H Pulse Rate [ From Monitor] Respiratory 23 14 Rate Blood Pressure 93/55 94/58 94/58 O2 Sat by Pulse 96 97 97 Oximetry O2 Sat by Pulse Oximetry [ Assessment] Constitutional: no acute distress, alert, other (resting in bed with mildly increased respiratory effort at rest) Eyes: non-icteric ENT: oropharynx moist, other (+ midline tracheostomy to home vent) Neck: supple, no lymphadenopathy, no JVD Effort: mildly labored Ascultation: Bilateral: diminished breath sounds (bases), rhonchi Percussion: Bilateral: not dull Cardiovascular: regular rate and rhythm, other (S1,S2) Gastrointestinal: normoactive bowel sounds, soft, non-tender, non-distended Integumentary: normal Extremities: no cyanosis, no edema, pink and warm, pulses normal Neurologic: pupils equal and round, other (functional quadriplegia) Psychiatric: mood appropriate, affect normal CBC and BMP: 05/15/22 10:44 05/15/22 10:44 ABG, PT/INR, D-dimer: ABG ABG pH 7.383 pH Units (7.350-7.450) 05/04/22 09:36 ABG pCO2 75.0 mm Hg 05/04/22 09:36 ABG pO2 55.4 mm Hg (80.0-90.0) L 05/04/22 09:36 ABG O2 Saturation 87.4 % (95.0-99.0) L 05/04/22 09:36 PT/INR, D-dimer PT 13.6 Sec. (12.2-14.9) 04/13/22 04:30 INR 0.94 (0.87-1.13) 04/13/22 04:30 Abnormal lab findings: Abnormal Labs 04/02/22 04/02/22 04/02/22 19:39 19:39 19:39 WBC 14.3 H RBC Hgb Hct MCV 96 H MCHC RDW Plt Count 104 L Lymph % (Auto) Smith % (Auto) Lymph # (Auto) Smith # (Auto) Seg Neutrophils % Seg Neuts % (Manual) 94.0 H Lymphocytes % (Manual) 1.0 L Seg Neutrophils # Seg Neutrophils # Man 13.4 H Lymphocytes # (Manual) 0.1 L PT 15.9 H INR 1.14 H ABG pH ABG pO2 ABG HCO3 ABG O2 Saturation ABG Base Excess ABG Hemoglobin Oxyhemoglobin Sodium 151 H Potassium Chloride Carbon Dioxide BUN Creatinine 0.5 L Glucose POC Glucose Calcium 8.2 L Phosphorus Magnesium 1.60 L Total Creatine Kinase CK-MB (CK-2) Rel Index Troponin T 0.048 H C-Reactive Protein Total Protein 4.6 L Albumin 2.7 L LDL Cholesterol Direct 27 L Urine WBC (Auto) 04/02/22 04/03/22 04/03/22 19:42 05:14 06:30 WBC RBC Hgb Hct MCV MCHC RDW Plt Count Lymph % (Auto) Smith % (Auto) Lymph # (Auto) Smith # (Auto) Seg Neutrophils % Seg Neuts % (Manual) Lymphocytes % (Manual) Seg Neutrophils # Seg Neutrophils # Man Lymphocytes # (Manual) PT INR ABG pH 7.471 H 7.496 H ABG pO2 47.8 L 91.0 H ABG HCO3 30.6 H ABG O2 Saturation 94.4 L ABG Base Excess 6.2 H ABG Hemoglobin 11.0 L 12.8 L Oxyhemoglobin 93.1 L Sodium 149 H Potassium 3.4 L Chloride Carbon Dioxide BUN Creatinine 0.4 L Glucose POC Glucose Calcium Phosphorus Magnesium Total Creatine Kinase CK-MB (CK-2) Rel Index Troponin T C-Reactive Protein Total Protein Albumin LDL Cholesterol Direct Urine WBC (Auto) 04/04/22 04/04/22 04/04/22 04:18 04:18 05:50 WBC 11.8 H RBC Hgb Hct MCV MCHC RDW Plt Count 132 L Lymph % (Auto) Smith % (Auto) Lymph # (Auto) Smith # (Auto) Seg Neutrophils % Seg Neuts % (Manual) Lymphocytes % (Manual) Seg Neutrophils # Seg Neutrophils # Man Lymphocytes # (Manual) PT INR ABG pH 7.517 H ABG pO2 115.5 H ABG HCO3 29.9 H ABG O2 Saturation ABG Base Excess 6.7 H ABG Hemoglobin 12.3 L Oxyhemoglobin Sodium Potassium 3.5 L Chloride Carbon Dioxide 31 H BUN Creatinine 0.3 L Glucose 153 H POC Glucose Calcium Phosphorus 1.40 L Magnesium 1.50 L Total Creatine Kinase CK-MB (CK-2) Rel Index Troponin T C-Reactive Protein 31.60 H Total Protein Albumin LDL Cholesterol Direct Urine WBC (Auto) 04/05/22 04/05/22 04/05/22 02:50 05:25 11:28 WBC RBC Hgb Hct MCV MCHC RDW Plt Count Lymph % (Auto) Smith % (Auto) Lymph # (Auto) Smith # (Auto) Seg Neutrophils % Seg Neuts % (Manual) Lymphocytes % (Manual) Seg Neutrophils # Seg Neutrophils # Man Lymphocytes # (Manual) PT INR ABG pH 7.455 H ABG pO2 50.7 L ABG HCO3 30.5 H ABG O2 Saturation 89.4 L ABG Base Excess 5.9 H ABG Hemoglobin 11.8 L Oxyhemoglobin 88.2 L Sodium Potassium Chloride Carbon Dioxide 32 H BUN Creatinine 0.2 L Glucose 110 H POC Glucose 124 H Calcium 7.9 L Phosphorus Magnesium Total Creatine Kinase CK-MB (CK-2) Rel Index Troponin T C-Reactive Protein Total Protein Albumin LDL Cholesterol Direct Urine WBC (Auto) 04/05/22 04/05/22 04/06/22 17:45 Unknown 04:00 WBC RBC 3.55 L Hgb 11.1 L 11.5 L Hct 33.2 L 35.1 L MCV MCHC RDW Plt Count 113 L 114 L Lymph % (Auto) Smith % (Auto) Lymph # (Auto) Smith # (Auto) Seg Neutrophils % Seg Neuts % (Manual) Lymphocytes % (Manual) Seg Neutrophils # Seg Neutrophils # Man Lymphocytes # (Manual) PT INR ABG pH ABG pO2 ABG HCO3 ABG O2 Saturation ABG Base Excess ABG Hemoglobin Oxyhemoglobin Sodium Potassium Chloride Carbon Dioxide BUN Creatinine Glucose POC Glucose Calcium Phosphorus Magnesium Total Creatine Kinase CK-MB (CK-2) Rel Index Troponin T C-Reactive Protein Total Protein Albumin LDL Cholesterol Direct Urine WBC (Auto) 8.0 H 04/06/22 04/06/22 04/07/22 04:00 08:30 00:04 WBC RBC Hgb Hct MCV MCHC RDW Plt Count Lymph % (Auto) Smith % (Auto) Lymph # (Auto) Smith # (Auto) Seg Neutrophils % Seg Neuts % (Manual) Lymphocytes % (Manual) Seg Neutrophils # Seg Neutrophils # Man Lymphocytes # (Manual) PT INR ABG pH ABG pO2 60.8 L ABG HCO3 30.5 H ABG O2 Saturation 93.3 L ABG Base Excess 4.9 H ABG Hemoglobin 12.4 L Oxyhemoglobin 92.1 L Sodium Potassium 3.0 L Chloride Carbon Dioxide BUN Creatinine < 0.2 L Glucose 130 H POC Glucose 117 H Calcium 8.1 L Phosphorus Magnesium Total Creatine Kinase CK-MB (CK-2) Rel Index Troponin T C-Reactive Protein Total Protein Albumin LDL Cholesterol Direct Urine WBC (Auto) 04/07/22 04/07/22 04/07/22 03:51 03:51 03:51 WBC 14.6 H RBC 3.57 L Hgb 11.1 L Hct 33.2 L MCV MCHC RDW Plt Count 118 L Lymph % (Auto) 4.3 L Smith % (Auto) 8.8 H Lymph # (Auto) 0.6 L Smith # (Auto) 1.3 H Seg Neutrophils % 86.6 H Seg Neuts % (Manual) Lymphocytes % (Manual) Seg Neutrophils # 12.7 H Seg Neutrophils # Man Lymphocytes # (Manual) PT 15.2 H INR ABG pH ABG pO2 ABG HCO3 ABG O2 Saturation ABG Base Excess ABG Hemoglobin Oxyhemoglobin Sodium 133 L Potassium Chloride 96.0 L Carbon Dioxide 31 H BUN Creatinine 0.2 L Glucose 130 H POC Glucose Calcium 8.0 L Phosphorus Magnesium Total Creatine Kinase CK-MB (CK-2) Rel Index Troponin T C-Reactive Protein Total Protein Albumin LDL Cholesterol Direct Urine WBC (Auto) 04/07/22 04/07/22 04/08/22 04:25 09:10 04:49 WBC 16.1 H RBC 3.54 L Hgb 10.9 L Hct 33.3 L MCV MCHC RDW Plt Count Lymph % (Auto) Smith % (Auto) Lymph # (Auto) Smith # (Auto) Seg Neutrophils % Seg Neuts % (Manual) Lymphocytes % (Manual) Seg Neutrophils # Seg Neutrophils # Man Lymphocytes # (Manual) PT INR ABG pH ABG pO2 71.0 L 63.4 L ABG HCO3 31.5 H 40.0 H ABG O2 Saturation 94.9 L ABG Base Excess 5.9 H 13.6 H ABG Hemoglobin 11.3 L 9.0 L Oxyhemoglobin 93.6 L Sodium Potassium Chloride Carbon Dioxide BUN Creatinine Glucose POC Glucose Calcium Phosphorus Magnesium Total Creatine Kinase CK-MB (CK-2) Rel Index Troponin T C-Reactive Protein Total Protein Albumin LDL Cholesterol Direct Urine WBC (Auto) 04/08/22 04/08/22 04/08/22 04:49 09:53 10:25 WBC RBC Hgb Hct MCV MCHC RDW Plt Count Lymph % (Auto) Smith % (Auto) Lymph # (Auto) Smith # (Auto) Seg Neutrophils % Seg Neuts % (Manual) Lymphocytes % (Manual) Seg Neutrophils # Seg Neutrophils # Man Lymphocytes # (Manual) PT INR ABG pH ABG pO2 ABG HCO3 34.7 H ABG O2 Saturation ABG Base Excess 7.9 H ABG Hemoglobin 11.0 L Oxyhemoglobin Sodium 136 L Potassium Chloride 97.7 L Carbon Dioxide 33 H BUN Creatinine 0.2 L Glucose 155 H POC Glucose Calcium Phosphorus Magnesium Total Creatine Kinase CK-MB (CK-2) Rel Index Troponin T 0.030 H C-Reactive Protein Total Protein Albumin LDL Cholesterol Direct Urine WBC (Auto) 04/08/22 04/08/22 04/08/22 11:19 17:47 18:06 WBC RBC Hgb Hct MCV MCHC RDW Plt Count Lymph % (Auto) Smith % (Auto) Lymph # (Auto) Smith # (Auto) Seg Neutrophils % Seg Neuts % (Manual) Lymphocytes % (Manual) Seg Neutrophils # Seg Neutrophils # Man Lymphocytes # (Manual) PT INR ABG pH ABG pO2 ABG HCO3 ABG O2 Saturation ABG Base Excess ABG Hemoglobin Oxyhemoglobin Sodium Potassium Chloride Carbon Dioxide BUN Creatinine Glucose POC Glucose 121 H Calcium Phosphorus Magnesium Total Creatine Kinase 31 L 46 L CK-MB (CK-2) Rel Index 6.4 H 5.6 H Troponin T 0.030 H 0.031 H C-Reactive Protein Total Protein Albumin LDL Cholesterol Direct Urine WBC (Auto) 04/09/22 04/09/22 04/09/22 04:35 04:35 11:24 WBC 11.5 H RBC 3.16 L Hgb 9.9 L Hct 29.4 L MCV MCHC RDW Plt Count 131 L Lymph % (Auto) Smith % (Auto) Lymph # (Auto) Smith # (Auto) Seg Neutrophils % Seg Neuts % (Manual) Lymphocytes % (Manual) Seg Neutrophils # Seg Neutrophils # Man Lymphocytes # (Manual) PT INR ABG pH ABG pO2 ABG HCO3 ABG O2 Saturation ABG Base Excess ABG Hemoglobin Oxyhemoglobin Sodium Potassium Chloride 97.1 L Carbon Dioxide 35 H BUN Creatinine < 0.2 L Glucose 145 H POC Glucose 147 H Calcium Phosphorus Magnesium Total Creatine Kinase CK-MB (CK-2) Rel Index Troponin T C-Reactive Protein Total Protein Albumin LDL Cholesterol Direct Urine WBC (Auto) 04/09/22 04/09/22 04/09/22 13:00 17:32 23:48 WBC RBC Hgb Hct MCV MCHC RDW Plt Count Lymph % (Auto) Smith % (Auto) Lymph # (Auto) Smith # (Auto) Seg Neutrophils % Seg Neuts % (Manual) Lymphocytes % (Manual) Seg Neutrophils # Seg Neutrophils # Man Lymphocytes # (Manual) PT INR ABG pH ABG pO2 66.6 L ABG HCO3 38.2 H ABG O2 Saturation 94.4 L ABG Base Excess 10.7 H ABG Hemoglobin 10.7 L Oxyhemoglobin 92.8 L Sodium Potassium Chloride Carbon Dioxide BUN Creatinine Glucose POC Glucose 143 H 114 H Calcium Phosphorus Magnesium Total Creatine Kinase CK-MB (CK-2) Rel Index Troponin T C-Reactive Protein Total Protein Albumin LDL Cholesterol Direct Urine WBC (Auto) 04/10/22 04/10/22 04/10/22 04:48 04:48 05:34 WBC RBC 2.91 L Hgb 9.1 L Hct 27.7 L MCV 95 H MCHC RDW Plt Count Lymph % (Auto) Smith % (Auto) Lymph # (Auto) Smith # (Auto) Seg Neutrophils % Seg Neuts % (Manual) Lymphocytes % (Manual) Seg Neutrophils # Seg Neutrophils # Man Lymphocytes # (Manual) PT INR ABG pH ABG pO2 ABG HCO3 ABG O2 Saturation ABG Base Excess ABG Hemoglobin Oxyhemoglobin Sodium Potassium Chloride 95.7 L Carbon Dioxide 38 H BUN Creatinine < 0.2 L Glucose 118 H POC Glucose 127 H Calcium Phosphorus Magnesium Total Creatine Kinase CK-MB (CK-2) Rel Index Troponin T C-Reactive Protein Total Protein Albumin LDL Cholesterol Direct Urine WBC (Auto) 04/10/22 04/11/22 04/11/22 23:10 04:15 04:15 WBC 17.2 H RBC 2.98 L Hgb 9.2 L Hct 27.9 L MCV MCHC RDW Plt Count Lymph % (Auto) Smith % (Auto) Lymph # (Auto) Smith # (Auto) Seg Neutrophils % Seg Neuts % (Manual) Lymphocytes % (Manual) Seg Neutrophils # Seg Neutrophils # Man Lymphocytes # (Manual) PT INR ABG pH ABG pO2 ABG HCO3 ABG O2 Saturation ABG Base Excess ABG Hemoglobin Oxyhemoglobin Sodium Potassium Chloride 96.1 L Carbon Dioxide 35 H BUN Creatinine < 0.2 L Glucose 138 H POC Glucose 106 H Calcium 8.3 L Phosphorus Magnesium Total Creatine Kinase CK-MB (CK-2) Rel Index Troponin T C-Reactive Protein Total Protein Albumin LDL Cholesterol Direct Urine WBC (Auto) 04/11/22 04/11/22 04/11/22 05:31 13:18 16:20 WBC RBC Hgb Hct MCV MCHC RDW Plt Count Lymph % (Auto) Smith % (Auto) Lymph # (Auto) Smith # (Auto) Seg Neutrophils % Seg Neuts % (Manual) Lymphocytes % (Manual) Seg Neutrophils # Seg Neutrophils # Man Lymphocytes # (Manual) PT INR ABG pH ABG pO2 57.8 L ABG HCO3 40.5 H ABG O2 Saturation 90.6 L ABG Base Excess 12.6 H ABG Hemoglobin 10.5 L Oxyhemoglobin 89.0 L Sodium Potassium Chloride Carbon Dioxide BUN Creatinine Glucose POC Glucose 129 H 132 H Calcium Phosphorus Magnesium Total Creatine Kinase CK-MB (CK-2) Rel Index Troponin T C-Reactive Protein Total Protein Albumin LDL Cholesterol Direct Urine WBC (Auto) 04/11/22 04/11/22 04/12/22 17:29 23:17 04:00 WBC 17.4 H RBC 2.96 L Hgb 9.0 L Hct 28.0 L MCV 95 H MCHC RDW Plt Count Lymph % (Auto) Smith % (Auto) Lymph # (Auto) Smith # (Auto) Seg Neutrophils % Seg Neuts % (Manual) Lymphocytes % (Manual) Seg Neutrophils # Seg Neutrophils # Man Lymphocytes # (Manual) PT INR ABG pH ABG pO2 ABG HCO3 ABG O2 Saturation ABG Base Excess ABG Hemoglobin Oxyhemoglobin Sodium Potassium Chloride Carbon Dioxide BUN Creatinine Glucose POC Glucose 125 H 151 H Calcium Phosphorus Magnesium Total Creatine Kinase CK-MB (CK-2) Rel Index Troponin T C-Reactive Protein Total Protein Albumin LDL Cholesterol Direct Urine WBC (Auto) 04/12/22 04/12/22 04/12/22 04:00 17:03 23:39 WBC RBC Hgb Hct MCV MCHC RDW Plt Count Lymph % (Auto) Smith % (Auto) Lymph # (Auto) Smith # (Auto) Seg Neutrophils % Seg Neuts % (Manual) Lymphocytes % (Manual) Seg Neutrophils # Seg Neutrophils # Man Lymphocytes # (Manual) PT INR ABG pH ABG pO2 ABG HCO3 ABG O2 Saturation ABG Base Excess ABG Hemoglobin Oxyhemoglobin Sodium Potassium Chloride 97.4 L Carbon Dioxide 37 H BUN Creatinine < 0.2 L Glucose 127 H POC Glucose 106 H 107 H Calcium Phosphorus Magnesium Total Creatine Kinase CK-MB (CK-2) Rel Index Troponin T C-Reactive Protein Total Protein Albumin LDL Cholesterol Direct Urine WBC (Auto) 04/13/22 04/13/22 04/13/22 04:30 04:30 17:39 WBC 14.1 H RBC 2.66 L Hgb 8.4 L Hct 25.5 L MCV 96 H MCHC RDW Plt Count Lymph % (Auto) Smith % (Auto) Lymph # (Auto) Smith # (Auto) Seg Neutrophils % Seg Neuts % (Manual) Lymphocytes % (Manual) Seg Neutrophils # Seg Neutrophils # Man Lymphocytes # (Manual) PT INR ABG pH ABG pO2 ABG HCO3 ABG O2 Saturation ABG Base Excess ABG Hemoglobin Oxyhemoglobin Sodium Potassium Chloride 93.9 L Carbon Dioxide 39 H BUN Creatinine < 0.2 L Glucose POC Glucose 134 H Calcium Phosphorus 1.90 L Magnesium Total Creatine Kinase CK-MB (CK-2) Rel Index Troponin T C-Reactive Protein Total Protein Albumin LDL Cholesterol Direct Urine WBC (Auto) 04/14/22 04/14/22 04/14/22 05:03 05:03 09:10 WBC 15.6 H RBC 3.02 L Hgb 9.3 L Hct 28.8 L MCV 95 H MCHC RDW Plt Count Lymph % (Auto) Smith % (Auto) Lymph # (Auto) Smith # (Auto) Seg Neutrophils % Seg Neuts % (Manual) Lymphocytes % (Manual) Seg Neutrophils # Seg Neutrophils # Man Lymphocytes # (Manual) PT INR ABG pH ABG pO2 66.9 L ABG HCO3 44.5 H ABG O2 Saturation ABG Base Excess 17.2 H ABG Hemoglobin 8.1 L Oxyhemoglobin 94.8 L Sodium Potassium Chloride 93.8 L Carbon Dioxide 42 H* BUN Creatinine < 0.2 L Glucose 117 H POC Glucose Calcium Phosphorus Magnesium Total Creatine Kinase CK-MB (CK-2) Rel Index Troponin T C-Reactive Protein Total Protein Albumin LDL Cholesterol Direct Urine WBC (Auto) 04/15/22 04/15/22 04/16/22 04:44 04:44 04:16 WBC 13.0 H 12.6 H RBC 3.19 L 3.09 L Hgb 9.6 L 9.5 L Hct 30.2 L 29.1 L MCV 95 H MCHC RDW Plt Count 456 H Lymph % (Auto) Smith % (Auto) Lymph # (Auto) Smith # (Auto) Seg Neutrophils % Seg Neuts % (Manual) Lymphocytes % (Manual) Seg Neutrophils # Seg Neutrophils # Man Lymphocytes # (Manual) PT INR ABG pH ABG pO2 ABG HCO3 ABG O2 Saturation ABG Base Excess ABG Hemoglobin Oxyhemoglobin Sodium Potassium Chloride 95.5 L Carbon Dioxide 37 H BUN Creatinine < 0.2 L Glucose POC Glucose Calcium Phosphorus Magnesium Total Creatine Kinase CK-MB (CK-2) Rel Index Troponin T C-Reactive Protein Total Protein Albumin LDL Cholesterol Direct Urine WBC (Auto) 04/16/22 04/16/22 04/16/22 04:16 05:00 14:00 WBC RBC Hgb Hct MCV MCHC RDW Plt Count Lymph % (Auto) Smith % (Auto) Lymph # (Auto) Smith # (Auto) Seg Neutrophils % Seg Neuts % (Manual) Lymphocytes % (Manual) Seg Neutrophils # Seg Neutrophils # Man Lymphocytes # (Manual) PT INR ABG pH 7.324 L ABG pO2 55.6 L ABG HCO3 45.3 H ABG O2 Saturation 87.1 L ABG Base Excess 16.6 H ABG Hemoglobin 8.6 L Oxyhemoglobin 85.7 L Sodium Potassium Chloride 97.6 L Carbon Dioxide 36 H BUN Creatinine < 0.2 L Glucose 109 H POC Glucose 120 H Calcium Phosphorus Magnesium Total Creatine Kinase CK-MB (CK-2) Rel Index Troponin T C-Reactive Protein Total Protein Albumin LDL Cholesterol Direct Urine WBC (Auto) 04/17/22 04/17/22 04/17/22 04:36 04:36 04:57 WBC 14.4 H RBC 3.08 L Hgb 9.4 L Hct 29.0 L MCV MCHC RDW Plt Count Lymph % (Auto) Smith % (Auto) Lymph # (Auto) Smith # (Auto) Seg Neutrophils % Seg Neuts % (Manual) Lymphocytes % (Manual) Seg Neutrophils # Seg Neutrophils # Man Lymphocytes # (Manual) PT INR ABG pH ABG pO2 ABG HCO3 ABG O2 Saturation ABG Base Excess ABG Hemoglobin Oxyhemoglobin Sodium Potassium Chloride 95.9 L Carbon Dioxide 39 H BUN Creatinine < 0.2 L Glucose 140 H POC Glucose 137 H Calcium 8.3 L Phosphorus Magnesium Total Creatine Kinase CK-MB (CK-2) Rel Index Troponin T C-Reactive Protein Total Protein Albumin LDL Cholesterol Direct Urine WBC (Auto) 04/17/22 04/17/22 04/18/22 09:15 18:01 04:20 WBC 11.2 H RBC 3.00 L Hgb 9.3 L Hct 28.6 L MCV 95 H MCHC RDW Plt Count Lymph % (Auto) Smith % (Auto) Lymph # (Auto) Smith # (Auto) Seg Neutrophils % Seg Neuts % (Manual) Lymphocytes % (Manual) Seg Neutrophils # Seg Neutrophils # Man Lymphocytes # (Manual) PT INR ABG pH 7.345 L ABG pO2 ABG HCO3 48.2 H ABG O2 Saturation ABG Base Excess 19.2 H ABG Hemoglobin 9.7 L Oxyhemoglobin Sodium Potassium Chloride Carbon Dioxide BUN Creatinine Glucose POC Glucose 129 H Calcium Phosphorus Magnesium Total Creatine Kinase CK-MB (CK-2) Rel Index Troponin T C-Reactive Protein Total Protein Albumin LDL Cholesterol Direct Urine WBC (Auto) 04/18/22 04/18/22 04/18/22 04:20 17:35 23:50 WBC RBC Hgb Hct MCV MCHC RDW Plt Count Lymph % (Auto) Smith % (Auto) Lymph # (Auto) Smith # (Auto) Seg Neutrophils % Seg Neuts % (Manual) Lymphocytes % (Manual) Seg Neutrophils # Seg Neutrophils # Man Lymphocytes # (Manual) PT INR ABG pH ABG pO2 ABG HCO3 ABG O2 Saturation ABG Base Excess ABG Hemoglobin Oxyhemoglobin Sodium Potassium Chloride 96.8 L Carbon Dioxide 43 H* BUN 22 H Creatinine < 0.2 L Glucose 137 H POC Glucose 128 H 123 H Calcium 8.2 L Phosphorus Magnesium Total Creatine Kinase CK-MB (CK-2) Rel Index Troponin T C-Reactive Protein Total Protein Albumin LDL Cholesterol Direct Urine WBC (Auto) 04/19/22 04/19/22 04/19/22 04:08 04:08 08:50 WBC 16.8 H RBC 3.18 L Hgb 9.8 L Hct 30.1 L MCV 95 H MCHC RDW Plt Count Lymph % (Auto) Smith % (Auto) Lymph # (Auto) Smith # (Auto) Seg Neutrophils % Seg Neuts % (Manual) Lymphocytes % (Manual) Seg Neutrophils # Seg Neutrophils # Man Lymphocytes # (Manual) PT INR ABG pH ABG pO2 56.0 L ABG HCO3 47.1 H ABG O2 Saturation 93.3 L ABG Base Excess 20.1 H ABG Hemoglobin 8.0 L Oxyhemoglobin 91.8 L Sodium Potassium Chloride 96.2 L Carbon Dioxide 40 H BUN 24 H Creatinine < 0.2 L Glucose 125 H POC Glucose Calcium 8.3 L Phosphorus Magnesium Total Creatine Kinase CK-MB (CK-2) Rel Index Troponin T C-Reactive Protein Total Protein Albumin LDL Cholesterol Direct Urine WBC (Auto) 04/19/22 04/20/22 04/20/22 12:02 00:40 04:49 WBC 14.7 H RBC 3.36 L Hgb 10.3 L Hct 32.0 L MCV 95 H MCHC RDW Plt Count Lymph % (Auto) Smith % (Auto) Lymph # (Auto) Smith # (Auto) Seg Neutrophils % Seg Neuts % (Manual) Lymphocytes % (Manual) Seg Neutrophils # Seg Neutrophils # Man Lymphocytes # (Manual) PT INR ABG pH ABG pO2 ABG HCO3 ABG O2 Saturation ABG Base Excess ABG Hemoglobin Oxyhemoglobin Sodium Potassium Chloride Carbon Dioxide BUN Creatinine Glucose POC Glucose 124 H 140 H Calcium Phosphorus Magnesium Total Creatine Kinase CK-MB (CK-2) Rel Index Troponin T C-Reactive Protein Total Protein Albumin LDL Cholesterol Direct Urine WBC (Auto) 04/20/22 04/20/22 04/21/22 05:36 11:40 04:05 WBC RBC Hgb Hct MCV MCHC RDW Plt Count Lymph % (Auto) Smith % (Auto) Lymph # (Auto) Smith # (Auto) Seg Neutrophils % Seg Neuts % (Manual) Lymphocytes % (Manual) Seg Neutrophils # Seg Neutrophils # Man Lymphocytes # (Manual) PT INR ABG pH ABG pO2 ABG HCO3 ABG O2 Saturation ABG Base Excess ABG Hemoglobin Oxyhemoglobin Sodium Potassium Chloride 93.4 L Carbon Dioxide 40 H BUN 25 H Creatinine < 0.2 L Glucose 122 H POC Glucose 125 H 128 H Calcium Phosphorus Magnesium Total Creatine Kinase CK-MB (CK-2) Rel Index Troponin T C-Reactive Protein Total Protein Albumin LDL Cholesterol Direct Urine WBC (Auto) 04/21/22 04/22/22 04/22/22 10:31 05:03 05:03 WBC 12.6 H 12.7 H RBC 2.83 L 2.96 L Hgb 8.6 L 9.0 L Hct 26.9 L 28.0 L MCV 95 H 95 H MCHC RDW Plt Count Lymph % (Auto) Smith % (Auto) Lymph # (Auto) Smith # (Auto) Seg Neutrophils % Seg Neuts % (Manual) Lymphocytes % (Manual) Seg Neutrophils # Seg Neutrophils # Man Lymphocytes # (Manual) PT INR ABG pH ABG pO2 ABG HCO3 ABG O2 Saturation ABG Base Excess ABG Hemoglobin Oxyhemoglobin Sodium Potassium Chloride 93.9 L Carbon Dioxide 43 H* BUN 23 H Creatinine < 0.2 L Glucose 137 H POC Glucose Calcium Phosphorus Magnesium Total Creatine Kinase CK-MB (CK-2) Rel Index Troponin T C-Reactive Protein Total Protein Albumin LDL Cholesterol Direct Urine WBC (Auto) 04/22/22 04/23/22 04/24/22 08:34 09:40 04:29 WBC 14.4 H RBC 2.74 L Hgb 8.4 L Hct 25.7 L MCV MCHC RDW Plt Count Lymph % (Auto) Smith % (Auto) Lymph # (Auto) Smith # (Auto) Seg Neutrophils % Seg Neuts % (Manual) Lymphocytes % (Manual) Seg Neutrophils # Seg Neutrophils # Man Lymphocytes # (Manual) PT INR ABG pH ABG pO2 54.1 L 56.8 L ABG HCO3 48.5 H 49.0 H ABG O2 Saturation 92.1 L 90.9 L ABG Base Excess 20.9 H 20.8 H ABG Hemoglobin 9.0 L 8.4 L Oxyhemoglobin 90.6 L 89.5 L Sodium Potassium Chloride Carbon Dioxide BUN Creatinine Glucose POC Glucose Calcium Phosphorus Magnesium Total Creatine Kinase CK-MB (CK-2) Rel Index Troponin T C-Reactive Protein Total Protein Albumin LDL Cholesterol Direct Urine WBC (Auto) 04/24/22 04/25/22 04/26/22 04:29 09:00 04:22 WBC RBC 2.88 L Hgb 8.9 L Hct 26.8 L MCV MCHC RDW Plt Count Lymph % (Auto) Smith % (Auto) Lymph # (Auto) Smith # (Auto) Seg Neutrophils % Seg Neuts % (Manual) Lymphocytes % (Manual) Seg Neutrophils # Seg Neutrophils # Man Lymphocytes # (Manual) PT INR ABG pH 7.457 H ABG pO2 66.7 L ABG HCO3 42.6 H ABG O2 Saturation ABG Base Excess 15.3 H ABG Hemoglobin 8.8 L Oxyhemoglobin 94.1 L Sodium Potassium Chloride 90.7 L Carbon Dioxide 40 H BUN Creatinine < 0.2 L Glucose 133 H POC Glucose Calcium Phosphorus Magnesium Total Creatine Kinase CK-MB (CK-2) Rel Index Troponin T C-Reactive Protein Total Protein Albumin LDL Cholesterol Direct Urine WBC (Auto) 04/26/22 04/29/22 04/29/22 04:22 04:18 04:18 WBC 13.5 H RBC 2.96 L Hgb 8.9 L Hct 27.7 L MCV MCHC RDW Plt Count Lymph % (Auto) Smith % (Auto) Lymph # (Auto) Smith # (Auto) Seg Neutrophils % Seg Neuts % (Manual) Lymphocytes % (Manual) Seg Neutrophils # Seg Neutrophils # Man Lymphocytes # (Manual) PT INR ABG pH ABG pO2 ABG HCO3 ABG O2 Saturation ABG Base Excess ABG Hemoglobin Oxyhemoglobin Sodium Potassium Chloride 93.2 L 95.2 L Carbon Dioxide 37 H 38 H BUN Creatinine < 0.2 L < 0.2 L Glucose 114 H 116 H POC Glucose Calcium Phosphorus Magnesium Total Creatine Kinase CK-MB (CK-2) Rel Index Troponin T C-Reactive Protein Total Protein Albumin LDL Cholesterol Direct Urine WBC (Auto) 05/02/22 05/03/22 05/03/22 04:29 04:02 04:02 WBC 12.9 H 12.3 H RBC 2.82 L 2.83 L Hgb 8.4 L 8.4 L Hct 26.2 L 26.0 L MCV MCHC RDW Plt Count Lymph % (Auto) Smith % (Auto) Lymph # (Auto) Smith # (Auto) Seg Neutrophils % Seg Neuts % (Manual) Lymphocytes % (Manual) Seg Neutrophils # Seg Neutrophils # Man Lymphocytes # (Manual) PT INR ABG pH ABG pO2 ABG HCO3 ABG O2 Saturation ABG Base Excess ABG Hemoglobin Oxyhemoglobin Sodium 134 L Potassium Chloride 90.5 L Carbon Dioxide 38 H BUN 21 H Creatinine < 0.2 L Glucose 126 H POC Glucose Calcium Phosphorus Magnesium Total Creatine Kinase CK-MB (CK-2) Rel Index Troponin T C-Reactive Protein Total Protein Albumin LDL Cholesterol Direct Urine WBC (Auto) 05/03/22 05/03/22 05/04/22 12:02 17:42 09:36 WBC RBC Hgb Hct MCV MCHC RDW Plt Count Lymph % (Auto) Smith % (Auto) Lymph # (Auto) Smith # (Auto) Seg Neutrophils % Seg Neuts % (Manual) Lymphocytes % (Manual) Seg Neutrophils # Seg Neutrophils # Man Lymphocytes # (Manual) PT INR ABG pH ABG pO2 55.4 L ABG HCO3 43.7 H ABG O2 Saturation 87.4 L ABG Base Excess 16.1 H ABG Hemoglobin 9.1 L Oxyhemoglobin 85.7 L Sodium Potassium Chloride Carbon Dioxide BUN Creatinine Glucose POC Glucose 139 H 131 H Calcium Phosphorus Magnesium Total Creatine Kinase CK-MB (CK-2) Rel Index Troponin T C-Reactive Protein Total Protein Albumin LDL Cholesterol Direct Urine WBC (Auto) 05/04/22 05/04/22 05/05/22 17:08 23:10 04:23 WBC 14.4 H RBC 2.75 L Hgb 8.2 L Hct 25.2 L MCV MCHC RDW Plt Count Lymph % (Auto) Smith % (Auto) Lymph # (Auto) Smith # (Auto) Seg Neutrophils % Seg Neuts % (Manual) Lymphocytes % (Manual) Seg Neutrophils # Seg Neutrophils # Man Lymphocytes # (Manual) PT INR ABG pH ABG pO2 ABG HCO3 ABG O2 Saturation ABG Base Excess ABG Hemoglobin Oxyhemoglobin Sodium Potassium Chloride Carbon Dioxide BUN Creatinine Glucose POC Glucose 124 H 115 H Calcium Phosphorus Magnesium Total Creatine Kinase CK-MB (CK-2) Rel Index Troponin T C-Reactive Protein Total Protein Albumin LDL Cholesterol Direct Urine WBC (Auto) 05/05/22 05/05/22 05/06/22 04:23 21:39 05:13 WBC RBC Hgb Hct MCV MCHC RDW Plt Count Lymph % (Auto) Smith % (Auto) Lymph # (Auto) Smith # (Auto) Seg Neutrophils % Seg Neuts % (Manual) Lymphocytes % (Manual) Seg Neutrophils # Seg Neutrophils # Man Lymphocytes # (Manual) PT INR ABG pH ABG pO2 ABG HCO3 ABG O2 Saturation ABG Base Excess ABG Hemoglobin Oxyhemoglobin Sodium Potassium Chloride 91.3 L Carbon Dioxide 38 H BUN 23 H Creatinine < 0.2 L Glucose 128 H POC Glucose 141 H 136 H Calcium Phosphorus Magnesium Total Creatine Kinase CK-MB (CK-2) Rel Index Troponin T C-Reactive Protein Total Protein Albumin LDL Cholesterol Direct Urine WBC (Auto) 05/07/22 05/07/22 05/08/22 05:29 22:15 05:48 WBC RBC Hgb Hct MCV MCHC RDW Plt Count Lymph % (Auto) Smith % (Auto) Lymph # (Auto) Smith # (Auto) Seg Neutrophils % Seg Neuts % (Manual) Lymphocytes % (Manual) Seg Neutrophils # Seg Neutrophils # Man Lymphocytes # (Manual) PT INR ABG pH ABG pO2 ABG HCO3 ABG O2 Saturation ABG Base Excess ABG Hemoglobin Oxyhemoglobin Sodium Potassium Chloride Carbon Dioxide BUN Creatinine Glucose POC Glucose 125 H 142 H 122 H Calcium Phosphorus Magnesium Total Creatine Kinase CK-MB (CK-2) Rel Index Troponin T C-Reactive Protein Total Protein Albumin LDL Cholesterol Direct Urine WBC (Auto) 05/08/22 05/08/22 05/09/22 14:04 21:48 15:15 WBC RBC 2.61 L Hgb 7.7 L Hct 23.2 L MCV MCHC RDW Plt Count Lymph % (Auto) 8.1 L Smith % (Auto) Lymph # (Auto) 0.9 L Smith # (Auto) Seg Neutrophils % 86.1 H Seg Neuts % (Manual) Lymphocytes % (Manual) Seg Neutrophils # 9.2 H Seg Neutrophils # Man Lymphocytes # (Manual) PT INR ABG pH ABG pO2 ABG HCO3 ABG O2 Saturation ABG Base Excess ABG Hemoglobin Oxyhemoglobin Sodium Potassium Chloride Carbon Dioxide BUN Creatinine Glucose POC Glucose 112 H 107 H Calcium Phosphorus Magnesium Total Creatine Kinase CK-MB (CK-2) Rel Index Troponin T C-Reactive Protein Total Protein Albumin LDL Cholesterol Direct Urine WBC (Auto) 05/09/22 05/09/22 05/09/22 15:15 15:39 21:15 WBC RBC Hgb Hct MCV MCHC RDW Plt Count Lymph % (Auto) Smith % (Auto) Lymph # (Auto) Smith # (Auto) Seg Neutrophils % Seg Neuts % (Manual) Lymphocytes % (Manual) Seg Neutrophils # Seg Neutrophils # Man Lymphocytes # (Manual) PT INR ABG pH ABG pO2 ABG HCO3 ABG O2 Saturation ABG Base Excess ABG Hemoglobin Oxyhemoglobin Sodium Potassium Chloride 92.9 L Carbon Dioxide 40 H BUN Creatinine < 0.2 L Glucose 141 H POC Glucose 118 H 112 H Calcium Phosphorus Magnesium Total Creatine Kinase CK-MB (CK-2) Rel Index Troponin T C-Reactive Protein Total Protein Albumin LDL Cholesterol Direct Urine WBC (Auto) 05/10/22 05/12/22 05/13/22 15:14 00:25 04:02 WBC 13.3 H RBC 3.14 L Hgb 8.7 L Hct 28.0 L MCV MCHC 31 L RDW Plt Count Lymph % (Auto) Smith % (Auto) Lymph # (Auto) Smith # (Auto) Seg Neutrophils % Seg Neuts % (Manual) Lymphocytes % (Manual) Seg Neutrophils # Seg Neutrophils # Man Lymphocytes # (Manual) PT INR ABG pH ABG pO2 ABG HCO3 ABG O2 Saturation ABG Base Excess ABG Hemoglobin Oxyhemoglobin Sodium Potassium Chloride Carbon Dioxide BUN Creatinine Glucose POC Glucose 113 H 158 H Calcium Phosphorus Magnesium Total Creatine Kinase CK-MB (CK-2) Rel Index Troponin T C-Reactive Protein Total Protein Albumin LDL Cholesterol Direct Urine WBC (Auto) 05/13/22 05/13/22 05/13/22 04:02 06:32 13:09 WBC RBC Hgb Hct MCV MCHC RDW Plt Count Lymph % (Auto) Smith % (Auto) Lymph # (Auto) Smith # (Auto) Seg Neutrophils % Seg Neuts % (Manual) Lymphocytes % (Manual) Seg Neutrophils # Seg Neutrophils # Man Lymphocytes # (Manual) PT INR ABG pH ABG pO2 ABG HCO3 ABG O2 Saturation ABG Base Excess ABG Hemoglobin Oxyhemoglobin Sodium 135 L Potassium Chloride 91.1 L Carbon Dioxide 40 H BUN 23 H Creatinine < 0.2 L Glucose 139 H POC Glucose 129 H 117 H Calcium Phosphorus Magnesium Total Creatine Kinase CK-MB (CK-2) Rel Index Troponin T C-Reactive Protein Total Protein Albumin LDL Cholesterol Direct Urine WBC (Auto) 05/13/22 05/14/22 05/14/22 21:28 05:44 07:35 WBC RBC Hgb Hct MCV MCHC RDW Plt Count Lymph % (Auto) Smith % (Auto) Lymph # (Auto) Smith # (Auto) Seg Neutrophils % Seg Neuts % (Manual) Lymphocytes % (Manual) Seg Neutrophils # Seg Neutrophils # Man Lymphocytes # (Manual) PT INR ABG pH ABG pO2 ABG HCO3 ABG O2 Saturation ABG Base Excess ABG Hemoglobin Oxyhemoglobin Sodium Potassium Chloride Carbon Dioxide BUN Creatinine Glucose POC Glucose 109 H 130 H 125 H Calcium Phosphorus Magnesium Total Creatine Kinase CK-MB (CK-2) Rel Index Troponin T C-Reactive Protein Total Protein Albumin LDL Cholesterol Direct Urine WBC (Auto) 05/14/22 05/14/22 05/15/22 16:26 23:44 10:44 WBC 13.9 H RBC 2.71 L Hgb 7.5 L Hct 23.5 L MCV MCHC RDW 15.9 H Plt Count Lymph % (Auto) Smith % (Auto) Lymph # (Auto) Smith # (Auto) Seg Neutrophils % Seg Neuts % (Manual) Lymphocytes % (Manual) Seg Neutrophils # Seg Neutrophils # Man Lymphocytes # (Manual) PT INR ABG pH ABG pO2 ABG HCO3 ABG O2 Saturation ABG Base Excess ABG Hemoglobin Oxyhemoglobin Sodium Potassium Chloride Carbon Dioxide BUN Creatinine Glucose POC Glucose 112 H 189 H Calcium Phosphorus Magnesium Total Creatine Kinase CK-MB (CK-2) Rel Index Troponin T C-Reactive Protein Total Protein Albumin LDL Cholesterol Direct Urine WBC (Auto) 05/15/22 05/16/22 10:44 14:50 WBC RBC Hgb Hct MCV MCHC RDW Plt Count Lymph % (Auto) Smith % (Auto) Lymph # (Auto) Smith # (Auto) Seg Neutrophils % Seg Neuts % (Manual) Lymphocytes % (Manual) Seg Neutrophils # Seg Neutrophils # Man Lymphocytes # (Manual) PT INR ABG pH ABG pO2 ABG HCO3 ABG O2 Saturation ABG Base Excess ABG Hemoglobin Oxyhemoglobin Sodium 135 L Potassium 3.3 L D Chloride 91.5 L Carbon Dioxide 33 H D BUN 21 H Creatinine < 0.2 L Glucose 118 H POC Glucose 133 H Calcium 7.9 L Phosphorus Magnesium Total Creatine Kinase CK-MB (CK-2) Rel Index Troponin T C-Reactive Protein Total Protein Albumin LDL Cholesterol Direct Urine WBC (Auto) Chest x-ray: image reviewed Allied health notes reviewed: RT
[2022-05-16] MEDS: SENNOSIDES ORAL LIQD 8.8 MG/5 ML ORAL LIQD PO SCH (21:34)
[2022-05-17] MEDS: METOPROLOL TARTRATE 25 MG TAB FEEDTUBE SCH ×4 (00:45→17:13)
[2022-05-17] MEDS: fentaNYL 100 MCG/2 ML INJ IV PRN ×4 (02:51→21:49)
--- NOTE | 2022-05-17 03:34 | XRay Report ---
CHEST 1 VIEW 05/17/2022 2:27 AM INDICATION / CLINICAL INFORMATION: F/u Respiratory Failure. COMPARISON: 05/15/2022. FINDINGS: SUPPORT DEVICES: Tracheostomy unchanged. HEART / MEDIASTINUM: No significant abnormality. LUNGS / PLEURA: Decreasing aeration at the right base with increasing basilar opacity. Left basilar o pacity/effusion remains with mild worsening. No pneumothorax. ADDITIONAL FINDINGS: No significant additional findings. IMPRESSION: Mild worsening. Signer Name: Tanmay Cheng MD Signed: 05/17/2022 3:30 AM Workstation Name: [id number]
[2022-05-17 04:20] LABS: Hematocrit 21.5 % (35.5-45.6); Mean Corpuscular HGB Conc 33 % (32-34); Mean Corpuscular Volume 85 fl (84-94); Platelet Count 300 K/mm3 (140-440); Red Blood Count 2.53 M/mm3 (3.65-5.03); Red Cell Distribution Width 16.2 % (13.2-15.2)
[2022-05-17 04:47] LABS: Blood Urea Nitrogen 22 mg/dL (9-20); Calcium 8.8 mg/dL (8.4-10.2); Hemolysis Index 3
[2022-05-17 05:08] LABS: BUN/Creatinine Ratio 110
[2022-05-17 05:33] LABS: Total Cells Counted 100
[2022-05-17 05:34] LABS: Anisocytosis 1+; Basophils % (Manual) 0 % (0.0-1.8); Eosinophils % (Manual) 0 % (0.0-4.3); Platelet Estimate Consistent w Auto
[2022-05-17] MEDS: HEPARIN 5,000 UNIT/1 ML VIAL SUB-Q SCH ×3 (05:46→21:50)
[2022-05-17] MEDS: CEFEPIME/NS 2 GM/100 ML 2 GM/100 ML BAG IV SCH ×3 (05:49→17:31)
[2022-05-17] MEDS: INSULIN LISPRO 100 UNIT/ML SUB-Q SCH ×3 (07:29→21:51)
[2022-05-17] MEDS: ACETYLCYSTEINE 20% 200 MG/1 ML *FOR INHALATION USE INHALATION SCH ×2 (07:50→20:57)
[2022-05-17] MEDS: ALBUTEROL 2.5 MG/3 ML NEBU IH SCH ×2 (07:50→20:57)
--- NOTE | 2022-05-17 09:00 | Progress Note ---
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 -Continue current antibiotics, ID following -Follow up cultures, trend temperature curve and WCC -Replace potassium- keep K >3.5; Mg at 2 and Phos >2.5 to optimize respiratory muscle function -Trach care, airway clearance, -continue with bronchodilators and chest PT -CXR,ABG as clinically indicated Chest PT- historically he has developed atelectasis every time we have stopped chest PT during his hospitalization. Continue with mucolytics and chest PT -Blood cultures negative to date Previous trach aspirate- Pseudomonas -Titrate supplemental oxygen to keep SpO2 89-92% -VAP bundle addressed, aspiration precautions HOB >40 -Monitoring renal function, hemodynamics and electrolyte profile -Accuchecks with glycemic control. target blood glucose 140-180 mg/dL. Avoid hypoglycemia -Continue enteric nutritional support, bowel regimen -VTE prophylaxis- Heparin -Avoid nephrotoxins and renally dose all medications -Stress ulcer prophylaxis- Famotidine -Mobility, frequent turning, off loading per facility protocol to prevent pressure ulcers -Maintain sleep wake cycle, avoid benzodiazepines. -Limit delirium CONDITION:CRITICAL PROGNOSIS: GUARDED CODE STATUS; FULL CODE The high probability of a clinically significant, sudden or life threatening deterioration of the respiratory, cardiovascular, neurology system required my full and direct attention, intervention and personal management. The aggregate critical care time was [33] minutes. 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 Vitals, labs, medications, chart and imaging reviewed. Discussed with respiratory and nursing care staff. s/p trach and PEG. On PEEP 12, Vt 500ml and 8L flow Febrile overnight with hypotension required another 500cc IVF bolus This morning he appears comfortable, SpO2 94-98% Blood pressure remains soft Objective Vital Signs - 12hr 05/16/22 05/16/22 05/16/22 22:00 22:33 23:00 Temperature Pulse Rate 124 H 118 H 117 H Pulse Rate [ Bilateral Throughout] Pulse Rate [ From Monitor] Respiratory 22 22 24 Rate Respiratory Rate [Bilateral Throughout] Blood Pressure 100/60 100/60 102/57 O2 Sat by Pulse 96 96 95 Oximetry O2 Sat by Pulse Oximetry [ Assessment] 05/16/22 05/17/22 05/17/22 23:58 00:00 00:45 Temperature 98.6 F Pulse Rate 97 H 99 H Pulse Rate [ Bilateral Throughout] Pulse Rate [ 108 H From Monitor] Respiratory 20 Rate Respiratory Rate [Bilateral Throughout] Blood Pressure 94/52 94/52 89/56 O2 Sat by Pulse 96 95 Oximetry O2 Sat by Pulse 95 Oximetry [ Assessment] 05/17/22 05/17/22 05/17/22 01:00 02:00 03:00 Temperature Pulse Rate 96 H 107 H 112 H Pulse Rate [ Bilateral Throughout] Pulse Rate [ From Monitor] Respiratory 20 21 16 Rate Respiratory Rate [Bilateral Throughout] Blood Pressure 89/56 91/56 97/56 O2 Sat by Pulse 94 91 95 Oximetry O2 Sat by Pulse Oximetry [ Assessment] 05/17/22 05/17/22 05/17/22 03:38 04:00 05:00 Temperature 99.1 F Pulse Rate 107 H 100 H 109 H Pulse Rate [ Bilateral Throughout] Pulse Rate [ 108 H From Monitor] Respiratory 23 19 Rate Respiratory Rate [Bilateral Throughout] Blood Pressure 97/56 92/52 95/43 O2 Sat by Pulse 98 94 94 Oximetry O2 Sat by Pulse Oximetry [ Assessment] 05/17/22 05/17/22 05/17/22 05:49 06:00 07:00 Temperature Pulse Rate 93 H 94 H Pulse Rate [ Bilateral Throughout] Pulse Rate [ From Monitor] Respiratory 19 21 Rate Respiratory Rate [Bilateral Throughout] Blood Pressure 95/43 85/52 95/58 O2 Sat by Pulse 95 96 Oximetry O2 Sat by Pulse Oximetry [ Assessment] 05/17/22 05/17/22 05/17/22 07:17 07:50 08:00 Temperature 100.0 F H Pulse Rate 94 H 104 H Pulse Rate [ 105 H Bilateral Throughout] Pulse Rate [ 96 H From Monitor] Respiratory 21 Rate Respiratory 20 Rate [Bilateral Throughout] Blood Pressure 95/58 87/61 O2 Sat by Pulse 98 97 Oximetry O2 Sat by Pulse 97 Oximetry [ Assessment] Constitutional: no acute distress, alert, other (resting in bed with mildly increased respiratory effort at rest) Eyes: non-icteric ENT: oropharynx moist, other (+ midline tracheostomy to home vent) Neck: supple, no lymphadenopathy, no JVD Effort: mildly labored Ascultation: Bilateral: diminished breath sounds (bases), rhonchi Percussion: Bilateral: not dull Cardiovascular: regular rate and rhythm, other (S1,S2) Gastrointestinal: normoactive bowel sounds, soft, non-tender, non-distended Integumentary: normal, decubitus ulcer (with eschar- pictures reviewed) Extremities: no cyanosis, no edema, pink and warm, pulses normal Neurologic: pupils equal and round, other (functional quadriplegia) Psychiatric: mood appropriate, affect normal CBC and BMP: 05/18/22 23:21 05/18/22 05:41 ABG, PT/INR, D-dimer: ABG ABG pH 7.383 pH Units (7.350-7.450) 05/04/22 09:36 ABG pCO2 75.0 mm Hg 05/04/22 09:36 ABG pO2 55.4 mm Hg (80.0-90.0) L 05/04/22 09:36 ABG O2 Saturation 87.4 % (95.0-99.0) L 05/04/22 09:36 PT/INR, D-dimer PT 13.6 Sec. (12.2-14.9) 04/13/22 04:30 INR 0.94 (0.87-1.13) 04/13/22 04:30 Abnormal lab findings: Abnormal Labs 04/02/22 04/02/22 04/02/22 19:39 19:39 19:39 WBC 14.3 H RBC Hgb Hct MCV 96 H MCHC RDW Plt Count 104 L Lymph % (Auto) Butts % (Auto) Lymph # (Auto) Butts # (Auto) Seg Neutrophils % Seg Neuts % (Manual) 94.0 H Lymphocytes % (Manual) 1.0 L Seg Neutrophils # Seg Neutrophils # Man 13.4 H Lymphocytes # (Manual) 0.1 L PT 15.9 H INR 1.14 H ABG pH ABG pO2 ABG HCO3 ABG O2 Saturation ABG Base Excess ABG Hemoglobin Oxyhemoglobin Sodium 151 H Potassium Chloride Carbon Dioxide BUN Creatinine 0.5 L Glucose POC Glucose Calcium 8.2 L Phosphorus Magnesium 1.60 L Total Creatine Kinase CK-MB (CK-2) Rel Index Troponin T 0.048 H C-Reactive Protein Total Protein 4.6 L Albumin 2.7 L LDL Cholesterol Direct 27 L Urine WBC (Auto) 04/02/22 04/03/22 04/03/22 19:42 05:14 06:30 WBC RBC Hgb Hct MCV MCHC RDW Plt Count Lymph % (Auto) Butts % (Auto) Lymph # (Auto) Butts # (Auto) Seg Neutrophils % Seg Neuts % (Manual) Lymphocytes % (Manual) Seg Neutrophils # Seg Neutrophils # Man Lymphocytes # (Manual) PT INR ABG pH 7.471 H 7.496 H ABG pO2 47.8 L 91.0 H ABG HCO3 30.6 H ABG O2 Saturation 94.4 L ABG Base Excess 6.2 H ABG Hemoglobin 11.0 L 12.8 L Oxyhemoglobin 93.1 L Sodium 149 H Potassium 3.4 L Chloride Carbon Dioxide BUN Creatinine 0.4 L Glucose POC Glucose Calcium Phosphorus Magnesium Total Creatine Kinase CK-MB (CK-2) Rel Index Troponin T C-Reactive Protein Total Protein Albumin LDL Cholesterol Direct Urine WBC (Auto) 04/04/22 04/04/22 04/04/22 04:18 04:18 05:50 WBC 11.8 H RBC Hgb Hct MCV MCHC RDW Plt Count 132 L Lymph % (Auto) Butts % (Auto) Lymph # (Auto) Butts # (Auto) Seg Neutrophils % Seg Neuts % (Manual) Lymphocytes % (Manual) Seg Neutrophils # Seg Neutrophils # Man Lymphocytes # (Manual) PT INR ABG pH 7.517 H ABG pO2 115.5 H ABG HCO3 29.9 H ABG O2 Saturation ABG Base Excess 6.7 H ABG Hemoglobin 12.3 L Oxyhemoglobin Sodium Potassium 3.5 L Chloride Carbon Dioxide 31 H BUN Creatinine 0.3 L Glucose 153 H POC Glucose Calcium Phosphorus 1.40 L Magnesium 1.50 L Total Creatine Kinase CK-MB (CK-2) Rel Index Troponin T C-Reactive Protein 31.60 H Total Protein Albumin LDL Cholesterol Direct Urine WBC (Auto) 04/05/22 04/05/22 04/05/22 02:50 05:25 11:28 WBC RBC Hgb Hct MCV MCHC RDW Plt Count Lymph % (Auto) Butts % (Auto) Lymph # (Auto) Butts # (Auto) Seg Neutrophils % Seg Neuts % (Manual) Lymphocytes % (Manual) Seg Neutrophils # Seg Neutrophils # Man Lymphocytes # (Manual) PT INR ABG pH 7.455 H ABG pO2 50.7 L ABG HCO3 30.5 H ABG O2 Saturation 89.4 L ABG Base Excess 5.9 H ABG Hemoglobin 11.8 L Oxyhemoglobin 88.2 L Sodium Potassium Chloride Carbon Dioxide 32 H BUN Creatinine 0.2 L Glucose 110 H POC Glucose 124 H Calcium 7.9 L Phosphorus Magnesium Total Creatine Kinase CK-MB (CK-2) Rel Index Troponin T C-Reactive Protein Total Protein Albumin LDL Cholesterol Direct Urine WBC (Auto) 04/05/22 04/05/22 04/06/22 17:45 Unknown 04:00 WBC RBC 3.55 L Hgb 11.1 L 11.5 L Hct 33.2 L 35.1 L MCV MCHC RDW Plt Count 113 L 114 L Lymph % (Auto) Butts % (Auto) Lymph # (Auto) Butts # (Auto) Seg Neutrophils % Seg Neuts % (Manual) Lymphocytes % (Manual) Seg Neutrophils # Seg Neutrophils # Man Lymphocytes # (Manual) PT INR ABG pH ABG pO2 ABG HCO3 ABG O2 Saturation ABG Base Excess ABG Hemoglobin Oxyhemoglobin Sodium Potassium Chloride Carbon Dioxide BUN Creatinine Glucose POC Glucose Calcium Phosphorus Magnesium Total Creatine Kinase CK-MB (CK-2) Rel Index Troponin T C-Reactive Protein Total Protein Albumin LDL Cholesterol Direct Urine WBC (Auto) 8.0 H 04/06/22 04/06/22 04/07/22 04:00 08:30 00:04 WBC RBC Hgb Hct MCV MCHC RDW Plt Count Lymph % (Auto) Butts % (Auto) Lymph # (Auto) Butts # (Auto) Seg Neutrophils % Seg Neuts % (Manual) Lymphocytes % (Manual) Seg Neutrophils # Seg Neutrophils # Man Lymphocytes # (Manual) PT INR ABG pH ABG pO2 60.8 L ABG HCO3 30.5 H ABG O2 Saturation 93.3 L ABG Base Excess 4.9 H ABG Hemoglobin 12.4 L Oxyhemoglobin 92.1 L Sodium Potassium 3.0 L Chloride Carbon Dioxide BUN Creatinine < 0.2 L Glucose 130 H POC Glucose 117 H Calcium 8.1 L Phosphorus Magnesium Total Creatine Kinase CK-MB (CK-2) Rel Index Troponin T C-Reactive Protein Total Protein Albumin LDL Cholesterol Direct Urine WBC (Auto) 04/07/22 04/07/22 04/07/22 03:51 03:51 03:51 WBC 14.6 H RBC 3.57 L Hgb 11.1 L Hct 33.2 L MCV MCHC RDW Plt Count 118 L Lymph % (Auto) 4.3 L Butts % (Auto) 8.8 H Lymph # (Auto) 0.6 L Butts # (Auto) 1.3 H Seg Neutrophils % 86.6 H Seg Neuts % (Manual) Lymphocytes % (Manual) Seg Neutrophils # 12.7 H Seg Neutrophils # Man Lymphocytes # (Manual) PT 15.2 H INR ABG pH ABG pO2 ABG HCO3 ABG O2 Saturation ABG Base Excess ABG Hemoglobin Oxyhemoglobin Sodium 133 L Potassium Chloride 96.0 L Carbon Dioxide 31 H BUN Creatinine 0.2 L Glucose 130 H POC Glucose Calcium 8.0 L Phosphorus Magnesium Total Creatine Kinase CK-MB (CK-2) Rel Index Troponin T C-Reactive Protein Total Protein Albumin LDL Cholesterol Direct Urine WBC (Auto) 04/07/22 04/07/22 04/08/22 04:25 09:10 04:49 WBC 16.1 H RBC 3.54 L Hgb 10.9 L Hct 33.3 L MCV MCHC RDW Plt Count Lymph % (Auto) Butts % (Auto) Lymph # (Auto) Butts # (Auto) Seg Neutrophils % Seg Neuts % (Manual) Lymphocytes % (Manual) Seg Neutrophils # Seg Neutrophils # Man Lymphocytes # (Manual) PT INR ABG pH ABG pO2 71.0 L 63.4 L ABG HCO3 31.5 H 40.0 H ABG O2 Saturation 94.9 L ABG Base Excess 5.9 H 13.6 H ABG Hemoglobin 11.3 L 9.0 L Oxyhemoglobin 93.6 L Sodium Potassium Chloride Carbon Dioxide BUN Creatinine Glucose POC Glucose Calcium Phosphorus Magnesium Total Creatine Kinase CK-MB (CK-2) Rel Index Troponin T C-Reactive Protein Total Protein Albumin LDL Cholesterol Direct Urine WBC (Auto) 04/08/22 04/08/22 04/08/22 04:49 09:53 10:25 WBC RBC Hgb Hct MCV MCHC RDW Plt Count Lymph % (Auto) Butts % (Auto) Lymph # (Auto) Butts # (Auto) Seg Neutrophils % Seg Neuts % (Manual) Lymphocytes % (Manual) Seg Neutrophils # Seg Neutrophils # Man Lymphocytes # (Manual) PT INR ABG pH ABG pO2 ABG HCO3 34.7 H ABG O2 Saturation ABG Base Excess 7.9 H ABG Hemoglobin 11.0 L Oxyhemoglobin Sodium 136 L Potassium Chloride 97.7 L Carbon Dioxide 33 H BUN Creatinine 0.2 L Glucose 155 H POC Glucose Calcium Phosphorus Magnesium Total Creatine Kinase CK-MB (CK-2) Rel Index Troponin T 0.030 H C-Reactive Protein Total Protein Albumin LDL Cholesterol Direct Urine WBC (Auto) 04/08/22 04/08/22 04/08/22 11:19 17:47 18:06 WBC RBC Hgb Hct MCV MCHC RDW Plt Count Lymph % (Auto) Butts % (Auto) Lymph # (Auto) Butts # (Auto) Seg Neutrophils % Seg Neuts % (Manual) Lymphocytes % (Manual) Seg Neutrophils # Seg Neutrophils # Man Lymphocytes # (Manual) PT INR ABG pH ABG pO2 ABG HCO3 ABG O2 Saturation ABG Base Excess ABG Hemoglobin Oxyhemoglobin Sodium Potassium Chloride Carbon Dioxide BUN Creatinine Glucose POC Glucose 121 H Calcium Phosphorus Magnesium Total Creatine Kinase 31 L 46 L CK-MB (CK-2) Rel Index 6.4 H 5.6 H Troponin T 0.030 H 0.031 H C-Reactive Protein Total Protein Albumin LDL Cholesterol Direct Urine WBC (Auto) 04/09/22 04/09/22 04/09/22 04:35 04:35 11:24 WBC 11.5 H RBC 3.16 L Hgb 9.9 L Hct 29.4 L MCV MCHC RDW Plt Count 131 L Lymph % (Auto) Butts % (Auto) Lymph # (Auto) Butts # (Auto) Seg Neutrophils % Seg Neuts % (Manual) Lymphocytes % (Manual) Seg Neutrophils # Seg Neutrophils # Man Lymphocytes # (Manual) PT INR ABG pH ABG pO2 ABG HCO3 ABG O2 Saturation ABG Base Excess ABG Hemoglobin Oxyhemoglobin Sodium Potassium Chloride 97.1 L Carbon Dioxide 35 H BUN Creatinine < 0.2 L Glucose 145 H POC Glucose 147 H Calcium Phosphorus Magnesium Total Creatine Kinase CK-MB (CK-2) Rel Index Troponin T C-Reactive Protein Total Protein Albumin LDL Cholesterol Direct Urine WBC (Auto) 04/09/22 04/09/22 04/09/22 13:00 17:32 23:48 WBC RBC Hgb Hct MCV MCHC RDW Plt Count Lymph % (Auto) Butts % (Auto) Lymph # (Auto) Butts # (Auto) Seg Neutrophils % Seg Neuts % (Manual) Lymphocytes % (Manual) Seg Neutrophils # Seg Neutrophils # Man Lymphocytes # (Manual) PT INR ABG pH ABG pO2 66.6 L ABG HCO3 38.2 H ABG O2 Saturation 94.4 L ABG Base Excess 10.7 H ABG Hemoglobin 10.7 L Oxyhemoglobin 92.8 L Sodium Potassium Chloride Carbon Dioxide BUN Creatinine Glucose POC Glucose 143 H 114 H Calcium Phosphorus Magnesium Total Creatine Kinase CK-MB (CK-2) Rel Index Troponin T C-Reactive Protein Total Protein Albumin LDL Cholesterol Direct Urine WBC (Auto) 04/10/22 04/10/22 04/10/22 04:48 04:48 05:34 WBC RBC 2.91 L Hgb 9.1 L Hct 27.7 L MCV 95 H MCHC RDW Plt Count Lymph % (Auto) Butts % (Auto) Lymph # (Auto) Butts # (Auto) Seg Neutrophils % Seg Neuts % (Manual) Lymphocytes % (Manual) Seg Neutrophils # Seg Neutrophils # Man Lymphocytes # (Manual) PT INR ABG pH ABG pO2 ABG HCO3 ABG O2 Saturation ABG Base Excess ABG Hemoglobin Oxyhemoglobin Sodium Potassium Chloride 95.7 L Carbon Dioxide 38 H BUN Creatinine < 0.2 L Glucose 118 H POC Glucose 127 H Calcium Phosphorus Magnesium Total Creatine Kinase CK-MB (CK-2) Rel Index Troponin T C-Reactive Protein Total Protein Albumin LDL Cholesterol Direct Urine WBC (Auto) 04/10/22 04/11/22 04/11/22 23:10 04:15 04:15 WBC 17.2 H RBC 2.98 L Hgb 9.2 L Hct 27.9 L MCV MCHC RDW Plt Count Lymph % (Auto) Butts % (Auto) Lymph # (Auto) Butts # (Auto) Seg Neutrophils % Seg Neuts % (Manual) Lymphocytes % (Manual) Seg Neutrophils # Seg Neutrophils # Man Lymphocytes # (Manual) PT INR ABG pH ABG pO2 ABG HCO3 ABG O2 Saturation ABG Base Excess ABG Hemoglobin Oxyhemoglobin Sodium Potassium Chloride 96.1 L Carbon Dioxide 35 H BUN Creatinine < 0.2 L Glucose 138 H POC Glucose 106 H Calcium 8.3 L Phosphorus Magnesium Total Creatine Kinase CK-MB (CK-2) Rel Index Troponin T C-Reactive Protein Total Protein Albumin LDL Cholesterol Direct Urine WBC (Auto) 04/11/22 04/11/22 04/11/22 05:31 13:18 16:20 WBC RBC Hgb Hct MCV MCHC RDW Plt Count Lymph % (Auto) Butts % (Auto) Lymph # (Auto) Butts # (Auto) Seg Neutrophils % Seg Neuts % (Manual) Lymphocytes % (Manual) Seg Neutrophils # Seg Neutrophils # Man Lymphocytes # (Manual) PT INR ABG pH ABG pO2 57.8 L ABG HCO3 40.5 H ABG O2 Saturation 90.6 L ABG Base Excess 12.6 H ABG Hemoglobin 10.5 L Oxyhemoglobin 89.0 L Sodium Potassium Chloride Carbon Dioxide BUN Creatinine Glucose POC Glucose 129 H 132 H Calcium Phosphorus Magnesium Total Creatine Kinase CK-MB (CK-2) Rel Index Troponin T C-Reactive Protein Total Protein Albumin LDL Cholesterol Direct Urine WBC (Auto) 04/11/22 04/11/22 04/12/22 17:29 23:17 04:00 WBC 17.4 H RBC 2.96 L Hgb 9.0 L Hct 28.0 L MCV 95 H MCHC RDW Plt Count Lymph % (Auto) Butts % (Auto) Lymph # (Auto) Butts # (Auto) Seg Neutrophils % Seg Neuts % (Manual) Lymphocytes % (Manual) Seg Neutrophils # Seg Neutrophils # Man Lymphocytes # (Manual) PT INR ABG pH ABG pO2 ABG HCO3 ABG O2 Saturation ABG Base Excess ABG Hemoglobin Oxyhemoglobin Sodium Potassium Chloride Carbon Dioxide BUN Creatinine Glucose POC Glucose 125 H 151 H Calcium Phosphorus Magnesium Total Creatine Kinase CK-MB (CK-2) Rel Index Troponin T C-Reactive Protein Total Protein Albumin LDL Cholesterol Direct Urine WBC (Auto) 04/12/22 04/12/22 04/12/22 04:00 17:03 23:39 WBC RBC Hgb Hct MCV MCHC RDW Plt Count Lymph % (Auto) Butts % (Auto) Lymph # (Auto) Butts # (Auto) Seg Neutrophils % Seg Neuts % (Manual) Lymphocytes % (Manual) Seg Neutrophils # Seg Neutrophils # Man Lymphocytes # (Manual) PT INR ABG pH ABG pO2 ABG HCO3 ABG O2 Saturation ABG Base Excess ABG Hemoglobin Oxyhemoglobin Sodium Potassium Chloride 97.4 L Carbon Dioxide 37 H BUN Creatinine < 0.2 L Glucose 127 H POC Glucose 106 H 107 H Calcium Phosphorus Magnesium Total Creatine Kinase CK-MB (CK-2) Rel Index Troponin T C-Reactive Protein Total Protein Albumin LDL Cholesterol Direct Urine WBC (Auto) 04/13/22 04/13/22 04/13/22 04:30 04:30 17:39 WBC 14.1 H RBC 2.66 L Hgb 8.4 L Hct 25.5 L MCV 96 H MCHC RDW Plt Count Lymph % (Auto) Butts % (Auto) Lymph # (Auto) Butts # (Auto) Seg Neutrophils % Seg Neuts % (Manual) Lymphocytes % (Manual) Seg Neutrophils # Seg Neutrophils # Man Lymphocytes # (Manual) PT INR ABG pH ABG pO2 ABG HCO3 ABG O2 Saturation ABG Base Excess ABG Hemoglobin Oxyhemoglobin Sodium Potassium Chloride 93.9 L Carbon Dioxide 39 H BUN Creatinine < 0.2 L Glucose POC Glucose 134 H Calcium Phosphorus 1.90 L Magnesium Total Creatine Kinase CK-MB (CK-2) Rel Index Troponin T C-Reactive Protein Total Protein Albumin LDL Cholesterol Direct Urine WBC (Auto) 04/14/22 04/14/22 04/14/22 05:03 05:03 09:10 WBC 15.6 H RBC 3.02 L Hgb 9.3 L Hct 28.8 L MCV 95 H MCHC RDW Plt Count Lymph % (Auto) Butts % (Auto) Lymph # (Auto) Butts # (Auto) Seg Neutrophils % Seg Neuts % (Manual) Lymphocytes % (Manual) Seg Neutrophils # Seg Neutrophils # Man Lymphocytes # (Manual) PT INR ABG pH ABG pO2 66.9 L ABG HCO3 44.5 H ABG O2 Saturation ABG Base Excess 17.2 H ABG Hemoglobin 8.1 L Oxyhemoglobin 94.8 L Sodium Potassium Chloride 93.8 L Carbon Dioxide 42 H* BUN Creatinine < 0.2 L Glucose 117 H POC Glucose Calcium Phosphorus Magnesium Total Creatine Kinase CK-MB (CK-2) Rel Index Troponin T C-Reactive Protein Total Protein Albumin LDL Cholesterol Direct Urine WBC (Auto) 04/15/22 04/15/22 04/16/22 04:44 04:44 04:16 WBC 13.0 H 12.6 H RBC 3.19 L 3.09 L Hgb 9.6 L 9.5 L Hct 30.2 L 29.1 L MCV 95 H MCHC RDW Plt Count 456 H Lymph % (Auto) Butts % (Auto) Lymph # (Auto) Butts # (Auto) Seg Neutrophils % Seg Neuts % (Manual) Lymphocytes % (Manual) Seg Neutrophils # Seg Neutrophils # Man Lymphocytes # (Manual) PT INR ABG pH ABG pO2 ABG HCO3 ABG O2 Saturation ABG Base Excess ABG Hemoglobin Oxyhemoglobin Sodium Potassium Chloride 95.5 L Carbon Dioxide 37 H BUN Creatinine < 0.2 L Glucose POC Glucose Calcium Phosphorus Magnesium Total Creatine Kinase CK-MB (CK-2) Rel Index Troponin T C-Reactive Protein Total Protein Albumin LDL Cholesterol Direct Urine WBC (Auto) 04/16/22 04/16/22 04/16/22 04:16 05:00 14:00 WBC RBC Hgb Hct MCV MCHC RDW Plt Count Lymph % (Auto) Butts % (Auto) Lymph # (Auto) Butts # (Auto) Seg Neutrophils % Seg Neuts % (Manual) Lymphocytes % (Manual) Seg Neutrophils # Seg Neutrophils # Man Lymphocytes # (Manual) PT INR ABG pH 7.324 L ABG pO2 55.6 L ABG HCO3 45.3 H ABG O2 Saturation 87.1 L ABG Base Excess 16.6 H ABG Hemoglobin 8.6 L Oxyhemoglobin 85.7 L Sodium Potassium Chloride 97.6 L Carbon Dioxide 36 H BUN Creatinine < 0.2 L Glucose 109 H POC Glucose 120 H Calcium Phosphorus Magnesium Total Creatine Kinase CK-MB (CK-2) Rel Index Troponin T C-Reactive Protein Total Protein Albumin LDL Cholesterol Direct Urine WBC (Auto) 04/17/22 04/17/22 04/17/22 04:36 04:36 04:57 WBC 14.4 H RBC 3.08 L Hgb 9.4 L Hct 29.0 L MCV MCHC RDW Plt Count Lymph % (Auto) Butts % (Auto) Lymph # (Auto) Butts # (Auto) Seg Neutrophils % Seg Neuts % (Manual) Lymphocytes % (Manual) Seg Neutrophils # Seg Neutrophils # Man Lymphocytes # (Manual) PT INR ABG pH ABG pO2 ABG HCO3 ABG O2 Saturation ABG Base Excess ABG Hemoglobin Oxyhemoglobin Sodium Potassium Chloride 95.9 L Carbon Dioxide 39 H BUN Creatinine < 0.2 L Glucose 140 H POC Glucose 137 H Calcium 8.3 L Phosphorus Magnesium Total Creatine Kinase CK-MB (CK-2) Rel Index Troponin T C-Reactive Protein Total Protein Albumin LDL Cholesterol Direct Urine WBC (Auto) 04/17/22 04/17/22 04/18/22 09:15 18:01 04:20 WBC 11.2 H RBC 3.00 L Hgb 9.3 L Hct 28.6 L MCV 95 H MCHC RDW Plt Count Lymph % (Auto) Butts % (Auto) Lymph # (Auto) Butts # (Auto) Seg Neutrophils % Seg Neuts % (Manual) Lymphocytes % (Manual) Seg Neutrophils # Seg Neutrophils # Man Lymphocytes # (Manual) PT INR ABG pH 7.345 L ABG pO2 ABG HCO3 48.2 H ABG O2 Saturation ABG Base Excess 19.2 H ABG Hemoglobin 9.7 L Oxyhemoglobin Sodium Potassium Chloride Carbon Dioxide BUN Creatinine Glucose POC Glucose 129 H Calcium Phosphorus Magnesium Total Creatine Kinase CK-MB (CK-2) Rel Index Troponin T C-Reactive Protein Total Protein Albumin LDL Cholesterol Direct Urine WBC (Auto) 04/18/22 04/18/22 04/18/22 04:20 17:35 23:50 WBC RBC Hgb Hct MCV MCHC RDW Plt Count Lymph % (Auto) Butts % (Auto) Lymph # (Auto) Butts # (Auto) Seg Neutrophils % Seg Neuts % (Manual) Lymphocytes % (Manual) Seg Neutrophils # Seg Neutrophils # Man Lymphocytes # (Manual) PT INR ABG pH ABG pO2 ABG HCO3 ABG O2 Saturation ABG Base Excess ABG Hemoglobin Oxyhemoglobin Sodium Potassium Chloride 96.8 L Carbon Dioxide 43 H* BUN 22 H Creatinine < 0.2 L Glucose 137 H POC Glucose 128 H 123 H Calcium 8.2 L Phosphorus Magnesium Total Creatine Kinase CK-MB (CK-2) Rel Index Troponin T C-Reactive Protein Total Protein Albumin LDL Cholesterol Direct Urine WBC (Auto) 04/19/22 04/19/22 04/19/22 04:08 04:08 08:50 WBC 16.8 H RBC 3.18 L Hgb 9.8 L Hct 30.1 L MCV 95 H MCHC RDW Plt Count Lymph % (Auto) Butts % (Auto) Lymph # (Auto) Butts # (Auto) Seg Neutrophils % Seg Neuts % (Manual) Lymphocytes % (Manual) Seg Neutrophils # Seg Neutrophils # Man Lymphocytes # (Manual) PT INR ABG pH ABG pO2 56.0 L ABG HCO3 47.1 H ABG O2 Saturation 93.3 L ABG Base Excess 20.1 H ABG Hemoglobin 8.0 L Oxyhemoglobin 91.8 L Sodium Potassium Chloride 96.2 L Carbon Dioxide 40 H BUN 24 H Creatinine < 0.2 L Glucose 125 H POC Glucose Calcium 8.3 L Phosphorus Magnesium Total Creatine Kinase CK-MB (CK-2) Rel Index Troponin T C-Reactive Protein Total Protein Albumin LDL Cholesterol Direct Urine WBC (Auto) 04/19/22 04/20/22 04/20/22 12:02 00:40 04:49 WBC 14.7 H RBC 3.36 L Hgb 10.3 L Hct 32.0 L MCV 95 H MCHC RDW Plt Count Lymph % (Auto) Butts % (Auto) Lymph # (Auto) Butts # (Auto) Seg Neutrophils % Seg Neuts % (Manual) Lymphocytes % (Manual) Seg Neutrophils # Seg Neutrophils # Man Lymphocytes # (Manual) PT INR ABG pH ABG pO2 ABG HCO3 ABG O2 Saturation ABG Base Excess ABG Hemoglobin Oxyhemoglobin Sodium Potassium Chloride Carbon Dioxide BUN Creatinine Glucose POC Glucose 124 H 140 H Calcium Phosphorus Magnesium Total Creatine Kinase CK-MB (CK-2) Rel Index Troponin T C-Reactive Protein Total Protein Albumin LDL Cholesterol Direct Urine WBC (Auto) 04/20/22 04/20/22 04/21/22 05:36 11:40 04:05 WBC RBC Hgb Hct MCV MCHC RDW Plt Count Lymph % (Auto) Butts % (Auto) Lymph # (Auto) Butts # (Auto) Seg Neutrophils % Seg Neuts % (Manual) Lymphocytes % (Manual) Seg Neutrophils # Seg Neutrophils # Man Lymphocytes # (Manual) PT INR ABG pH ABG pO2 ABG HCO3 ABG O2 Saturation ABG Base Excess ABG Hemoglobin Oxyhemoglobin Sodium Potassium Chloride 93.4 L Carbon Dioxide 40 H BUN 25 H Creatinine < 0.2 L Glucose 122 H POC Glucose 125 H 128 H Calcium Phosphorus Magnesium Total Creatine Kinase CK-MB (CK-2) Rel Index Troponin T C-Reactive Protein Total Protein Albumin LDL Cholesterol Direct Urine WBC (Auto) 04/21/22 04/22/22 04/22/22 10:31 05:03 05:03 WBC 12.6 H 12.7 H RBC 2.83 L 2.96 L Hgb 8.6 L 9.0 L Hct 26.9 L 28.0 L MCV 95 H 95 H MCHC RDW Plt Count Lymph % (Auto) Butts % (Auto) Lymph # (Auto) Butts # (Auto) Seg Neutrophils % Seg Neuts % (Manual) Lymphocytes % (Manual) Seg Neutrophils # Seg Neutrophils # Man Lymphocytes # (Manual) PT INR ABG pH ABG pO2 ABG HCO3 ABG O2 Saturation ABG Base Excess ABG Hemoglobin Oxyhemoglobin Sodium Potassium Chloride 93.9 L Carbon Dioxide 43 H* BUN 23 H Creatinine < 0.2 L Glucose 137 H POC Glucose Calcium Phosphorus Magnesium Total Creatine Kinase CK-MB (CK-2) Rel Index Troponin T C-Reactive Protein Total Protein Albumin LDL Cholesterol Direct Urine WBC (Auto) 04/22/22 04/23/22 04/24/22 08:34 09:40 04:29 WBC 14.4 H RBC 2.74 L Hgb 8.4 L Hct 25.7 L MCV MCHC RDW Plt Count Lymph % (Auto) Butts % (Auto) Lymph # (Auto) Butts # (Auto) Seg Neutrophils % Seg Neuts % (Manual) Lymphocytes % (Manual) Seg Neutrophils # Seg Neutrophils # Man Lymphocytes # (Manual) PT INR ABG pH ABG pO2 54.1 L 56.8 L ABG HCO3 48.5 H 49.0 H ABG O2 Saturation 92.1 L 90.9 L ABG Base Excess 20.9 H 20.8 H ABG Hemoglobin 9.0 L 8.4 L Oxyhemoglobin 90.6 L 89.5 L Sodium Potassium Chloride Carbon Dioxide BUN Creatinine Glucose POC Glucose Calcium Phosphorus Magnesium Total Creatine Kinase CK-MB (CK-2) Rel Index Troponin T C-Reactive Protein Total Protein Albumin LDL Cholesterol Direct Urine WBC (Auto) 04/24/22 04/25/22 04/26/22 04:29 09:00 04:22 WBC RBC 2.88 L Hgb 8.9 L Hct 26.8 L MCV MCHC RDW Plt Count Lymph % (Auto) Butts % (Auto) Lymph # (Auto) Butts # (Auto) Seg Neutrophils % Seg Neuts % (Manual) Lymphocytes % (Manual) Seg Neutrophils # Seg Neutrophils # Man Lymphocytes # (Manual) PT INR ABG pH 7.457 H ABG pO2 66.7 L ABG HCO3 42.6 H ABG O2 Saturation ABG Base Excess 15.3 H ABG Hemoglobin 8.8 L Oxyhemoglobin 94.1 L Sodium Potassium Chloride 90.7 L Carbon Dioxide 40 H BUN Creatinine < 0.2 L Glucose 133 H POC Glucose Calcium Phosphorus Magnesium Total Creatine Kinase CK-MB (CK-2) Rel Index Troponin T C-Reactive Protein Total Protein Albumin LDL Cholesterol Direct Urine WBC (Auto) 04/26/22 04/29/22 04/29/22 04:22 04:18 04:18 WBC 13.5 H RBC 2.96 L Hgb 8.9 L Hct 27.7 L MCV MCHC RDW Plt Count Lymph % (Auto) Butts % (Auto) Lymph # (Auto) Butts # (Auto) Seg Neutrophils % Seg Neuts % (Manual) Lymphocytes % (Manual) Seg Neutrophils # Seg Neutrophils # Man Lymphocytes # (Manual) PT INR ABG pH ABG pO2 ABG HCO3 ABG O2 Saturation ABG Base Excess ABG Hemoglobin Oxyhemoglobin Sodium Potassium Chloride 93.2 L 95.2 L Carbon Dioxide 37 H 38 H BUN Creatinine < 0.2 L < 0.2 L Glucose 114 H 116 H POC Glucose Calcium Phosphorus Magnesium Total Creatine Kinase CK-MB (CK-2) Rel Index Troponin T C-Reactive Protein Total Protein Albumin LDL Cholesterol Direct Urine WBC (Auto) 05/02/22 05/03/22 05/03/22 04:29 04:02 04:02 WBC 12.9 H 12.3 H RBC 2.82 L 2.83 L Hgb 8.4 L 8.4 L Hct 26.2 L 26.0 L MCV MCHC RDW Plt Count Lymph % (Auto) Butts % (Auto) Lymph # (Auto) Butts # (Auto) Seg Neutrophils % Seg Neuts % (Manual) Lymphocytes % (Manual) Seg Neutrophils # Seg Neutrophils # Man Lymphocytes # (Manual) PT INR ABG pH ABG pO2 ABG HCO3 ABG O2 Saturation ABG Base Excess ABG Hemoglobin Oxyhemoglobin Sodium 134 L Potassium Chloride 90.5 L Carbon Dioxide 38 H BUN 21 H Creatinine < 0.2 L Glucose 126 H POC Glucose Calcium Phosphorus Magnesium Total Creatine Kinase CK-MB (CK-2) Rel Index Troponin T C-Reactive Protein Total Protein Albumin LDL Cholesterol Direct Urine WBC (Auto) 05/03/22 05/03/22 05/04/22 12:02 17:42 09:36 WBC RBC Hgb Hct MCV MCHC RDW Plt Count Lymph % (Auto) Butts % (Auto) Lymph # (Auto) Butts # (Auto) Seg Neutrophils % Seg Neuts % (Manual) Lymphocytes % (Manual) Seg Neutrophils # Seg Neutrophils # Man Lymphocytes # (Manual) PT INR ABG pH ABG pO2 55.4 L ABG HCO3 43.7 H ABG O2 Saturation 87.4 L ABG Base Excess 16.1 H ABG Hemoglobin 9.1 L Oxyhemoglobin 85.7 L Sodium Potassium Chloride Carbon Dioxide BUN Creatinine Glucose POC Glucose 139 H 131 H Calcium Phosphorus Magnesium Total Creatine Kinase CK-MB (CK-2) Rel Index Troponin T C-Reactive Protein Total Protein Albumin LDL Cholesterol Direct Urine WBC (Auto) 05/04/22 05/04/22 05/05/22 17:08 23:10 04:23 WBC 14.4 H RBC 2.75 L Hgb 8.2 L Hct 25.2 L MCV MCHC RDW Plt Count Lymph % (Auto) Butts % (Auto) Lymph # (Auto) Butts # (Auto) Seg Neutrophils % Seg Neuts % (Manual) Lymphocytes % (Manual) Seg Neutrophils # Seg Neutrophils # Man Lymphocytes # (Manual) PT INR ABG pH ABG pO2 ABG HCO3 ABG O2 Saturation ABG Base Excess ABG Hemoglobin Oxyhemoglobin Sodium Potassium Chloride Carbon Dioxide BUN Creatinine Glucose POC Glucose 124 H 115 H Calcium Phosphorus Magnesium Total Creatine Kinase CK-MB (CK-2) Rel Index Troponin T C-Reactive Protein Total Protein Albumin LDL Cholesterol Direct Urine WBC (Auto) 05/05/22 05/05/22 05/06/22 04:23 21:39 05:13 WBC RBC Hgb Hct MCV MCHC RDW Plt Count Lymph % (Auto) Butts % (Auto) Lymph # (Auto) Butts # (Auto) Seg Neutrophils % Seg Neuts % (Manual) Lymphocytes % (Manual) Seg Neutrophils # Seg Neutrophils # Man Lymphocytes # (Manual) PT INR ABG pH ABG pO2 ABG HCO3 ABG O2 Saturation ABG Base Excess ABG Hemoglobin Oxyhemoglobin Sodium Potassium Chloride 91.3 L Carbon Dioxide 38 H BUN 23 H Creatinine < 0.2 L Glucose 128 H POC Glucose 141 H 136 H Calcium Phosphorus Magnesium Total Creatine Kinase CK-MB (CK-2) Rel Index Troponin T C-Reactive Protein Total Protein Albumin LDL Cholesterol Direct Urine WBC (Auto) 05/07/22 05/07/22 05/08/22 05:29 22:15 05:48 WBC RBC Hgb Hct MCV MCHC RDW Plt Count Lymph % (Auto) Butts % (Auto) Lymph # (Auto) Butts # (Auto) Seg Neutrophils % Seg Neuts % (Manual) Lymphocytes % (Manual) Seg Neutrophils # Seg Neutrophils # Man Lymphocytes # (Manual) PT INR ABG pH ABG pO2 ABG HCO3 ABG O2 Saturation ABG Base Excess ABG Hemoglobin Oxyhemoglobin Sodium Potassium Chloride Carbon Dioxide BUN Creatinine Glucose POC Glucose 125 H 142 H 122 H Calcium Phosphorus Magnesium Total Creatine Kinase CK-MB (CK-2) Rel Index Troponin T C-Reactive Protein Total Protein Albumin LDL Cholesterol Direct Urine WBC (Auto) 05/08/22 05/08/22 05/09/22 14:04 21:48 15:15 WBC RBC 2.61 L Hgb 7.7 L Hct 23.2 L MCV MCHC RDW Plt Count Lymph % (Auto) 8.1 L Butts % (Auto) Lymph # (Auto) 0.9 L Butts # (Auto) Seg Neutrophils % 86.1 H Seg Neuts % (Manual) Lymphocytes % (Manual) Seg Neutrophils # 9.2 H Seg Neutrophils # Man Lymphocytes # (Manual) PT INR ABG pH ABG pO2 ABG HCO3 ABG O2 Saturation ABG Base Excess ABG Hemoglobin Oxyhemoglobin Sodium Potassium Chloride Carbon Dioxide BUN Creatinine Glucose POC Glucose 112 H 107 H Calcium Phosphorus Magnesium Total Creatine Kinase CK-MB (CK-2) Rel Index Troponin T C-Reactive Protein Total Protein Albumin LDL Cholesterol Direct Urine WBC (Auto) 05/09/22 05/09/22 05/09/22 15:15 15:39 21:15 WBC RBC Hgb Hct MCV MCHC RDW Plt Count Lymph % (Auto) Butts % (Auto) Lymph # (Auto) Butts # (Auto) Seg Neutrophils % Seg Neuts % (Manual) Lymphocytes % (Manual) Seg Neutrophils # Seg Neutrophils # Man Lymphocytes # (Manual) PT INR ABG pH ABG pO2 ABG HCO3 ABG O2 Saturation ABG Base Excess ABG Hemoglobin Oxyhemoglobin Sodium Potassium Chloride 92.9 L Carbon Dioxide 40 H BUN Creatinine < 0.2 L Glucose 141 H POC Glucose 118 H 112 H Calcium Phosphorus Magnesium Total Creatine Kinase CK-MB (CK-2) Rel Index Troponin T C-Reactive Protein Total Protein Albumin LDL Cholesterol Direct Urine WBC (Auto) 05/10/22 05/12/22 05/13/22 15:14 00:25 04:02 WBC 13.3 H RBC 3.14 L Hgb 8.7 L Hct 28.0 L MCV MCHC 31 L RDW Plt Count Lymph % (Auto) Butts % (Auto) Lymph # (Auto) Butts # (Auto) Seg Neutrophils % Seg Neuts % (Manual) Lymphocytes % (Manual) Seg Neutrophils # Seg Neutrophils # Man Lymphocytes # (Manual) PT INR ABG pH ABG pO2 ABG HCO3 ABG O2 Saturation ABG Base Excess ABG Hemoglobin Oxyhemoglobin Sodium Potassium Chloride Carbon Dioxide BUN Creatinine Glucose POC Glucose 113 H 158 H Calcium Phosphorus Magnesium Total Creatine Kinase CK-MB (CK-2) Rel Index Troponin T C-Reactive Protein Total Protein Albumin LDL Cholesterol Direct Urine WBC (Auto) 05/13/22 05/13/22 05/13/22 04:02 06:32 13:09 WBC RBC Hgb Hct MCV MCHC RDW Plt Count Lymph % (Auto) Butts % (Auto) Lymph # (Auto) Butts # (Auto) Seg Neutrophils % Seg Neuts % (Manual) Lymphocytes % (Manual) Seg Neutrophils # Seg Neutrophils # Man Lymphocytes # (Manual) PT INR ABG pH ABG pO2 ABG HCO3 ABG O2 Saturation ABG Base Excess ABG Hemoglobin Oxyhemoglobin Sodium 135 L Potassium Chloride 91.1 L Carbon Dioxide 40 H BUN 23 H Creatinine < 0.2 L Glucose 139 H POC Glucose 129 H 117 H Calcium Phosphorus Magnesium Total Creatine Kinase CK-MB (CK-2) Rel Index Troponin T C-Reactive Protein Total Protein Albumin LDL Cholesterol Direct Urine WBC (Auto) 05/13/22 05/14/22 05/14/22 21:28 05:44 07:35 WBC RBC Hgb Hct MCV MCHC RDW Plt Count Lymph % (Auto) Butts % (Auto) Lymph # (Auto) Butts # (Auto) Seg Neutrophils % Seg Neuts % (Manual) Lymphocytes % (Manual) Seg Neutrophils # Seg Neutrophils # Man Lymphocytes # (Manual) PT INR ABG pH ABG pO2 ABG HCO3 ABG O2 Saturation ABG Base Excess ABG Hemoglobin Oxyhemoglobin Sodium Potassium Chloride Carbon Dioxide BUN Creatinine Glucose POC Glucose 109 H 130 H 125 H Calcium Phosphorus Magnesium Total Creatine Kinase CK-MB (CK-2) Rel Index Troponin T C-Reactive Protein Total Protein Albumin LDL Cholesterol Direct Urine WBC (Auto) 05/14/22 05/14/22 05/15/22 16:26 23:44 10:44 WBC 13.9 H RBC 2.71 L Hgb 7.5 L Hct 23.5 L MCV MCHC RDW 15.9 H Plt Count Lymph % (Auto) Butts % (Auto) Lymph # (Auto) Butts # (Auto) Seg Neutrophils % Seg Neuts % (Manual) Lymphocytes % (Manual) Seg Neutrophils # Seg Neutrophils # Man Lymphocytes # (Manual) PT INR ABG pH ABG pO2 ABG HCO3 ABG O2 Saturation ABG Base Excess ABG Hemoglobin Oxyhemoglobin Sodium Potassium Chloride Carbon Dioxide BUN Creatinine Glucose POC Glucose 112 H 189 H Calcium Phosphorus Magnesium Total Creatine Kinase CK-MB (CK-2) Rel Index Troponin T C-Reactive Protein Total Protein Albumin LDL Cholesterol Direct Urine WBC (Auto) 05/15/22 05/16/22 05/16/22 10:44 14:50 21:36 WBC RBC Hgb Hct MCV MCHC RDW Plt Count Lymph % (Auto) Butts % (Auto) Lymph # (Auto) Butts # (Auto) Seg Neutrophils % Seg Neuts % (Manual) Lymphocytes % (Manual) Seg Neutrophils # Seg Neutrophils # Man Lymphocytes # (Manual) PT INR ABG pH ABG pO2 ABG HCO3 ABG O2 Saturation ABG Base Excess ABG Hemoglobin Oxyhemoglobin Sodium 135 L Potassium 3.3 L D Chloride 91.5 L Carbon Dioxide 33 H D BUN 21 H Creatinine < 0.2 L Glucose 118 H POC Glucose 133 H 123 H Calcium 7.9 L Phosphorus Magnesium Total Creatine Kinase CK-MB (CK-2) Rel Index Troponin T C-Reactive Protein Total Protein Albumin LDL Cholesterol Direct Urine WBC (Auto) 05/17/22 05/17/22 05/17/22 03:41 03:41 05:51 WBC 16.2 H RBC 2.53 L Hgb 7.0 L Hct 21.5 L MCV MCHC RDW 16.2 H Plt Count Lymph % (Auto) Butts % (Auto) Lymph # (Auto) Butts # (Auto) Seg Neutrophils % Seg Neuts % (Manual) 96.0 H Lymphocytes % (Manual) 1.0 L Seg Neutrophils # Seg Neutrophils # Man 15.6 H Lymphocytes # (Manual) 0.2 L PT INR ABG pH ABG pO2 ABG HCO3 ABG O2 Saturation ABG Base Excess ABG Hemoglobin Oxyhemoglobin Sodium 132 L Potassium Chloride 95.0 L Carbon Dioxide BUN 22 H Creatinine < 0.2 L Glucose 122 H POC Glucose 123 H Calcium Phosphorus Magnesium Total Creatine Kinase CK-MB (CK-2) Rel Index Troponin T C-Reactive Protein 31.20 H Total Protein Albumin LDL Cholesterol Direct Urine WBC (Auto) 05/17/22 07:53 WBC RBC Hgb Hct MCV MCHC RDW Plt Count Lymph % (Auto) Butts % (Auto) Lymph # (Auto) Butts # (Auto) Seg Neutrophils % Seg Neuts % (Manual) Lymphocytes % (Manual) Seg Neutrophils # Seg Neutrophils # Man Lymphocytes # (Manual) PT INR ABG pH ABG pO2 ABG HCO3 ABG O2 Saturation ABG Base Excess ABG Hemoglobin Oxyhemoglobin Sodium Potassium Chloride Carbon Dioxide BUN Creatinine Glucose POC Glucose 106 H Calcium Phosphorus Magnesium Total Creatine Kinase CK-MB (CK-2) Rel Index Troponin T C-Reactive Protein Total Protein Albumin LDL Cholesterol Direct Urine WBC (Auto) Allied health notes reviewed: RT
--- NOTE | 2022-05-17 09:10 | Progress Note ---
Assessment and Plan Assessment and plan: NEURO- ALS; profound debility and weakness on seroquel bid alert nodding appropriately PRN pain meds family at bedside and updated on plan of care CV- tachycardia this AM tachy today with fever ST no pressors is on metop - monitor closely keep MAP > 70 RESP ac resp failure chest xray worsening infiltrate today on home vent [phone] peep no inc wob secretions controlled on scop patch GI- prot. anurag malnutriton TF nutrition following asked to follow for micronutrient eval pepcid bowel reg no bm added colace; has senna and PRN's - nap condom cath given fevers will send ua follow and replace electrolytes as needed pos 380 ml over 24 hours AM labs ordered HEME- nap VTE SCD and SQH ID- febrile fevers/tachy off pressors on cefipime adding vanc will send ua wound noted see abovecovid neg mrsa neg covid neg if temp > 101- reculture blood and sputum ENDO- stress hyperglycemia SSI PRN Disposition Plan: continue ICU care Total Time Spent with Patient (Minutes): 60 min critical care History Interval history: fever overnight Hospitalist Physical - Constitutional Vitals: Temp Pulse Resp BP Pulse Ox 100.0 F H 96 H 22 87/61 96 05/17/22 07:17 05/17/22 08:00 05/17/22 08:00 05/17/22 08:00 05/17/22 08:00 General appearance: Present: no acute distress, cachectic, other (trach/) - EENT Eyes: Present: PERRL ENT: hearing intact - Neck Neck: Present: supple - Respiratory Respiratory effort: normal - Cardiovascular Rhythm: regular Heart Sounds: Present: S1 & S2 - Extremities Extremities: no ischemia Peripheral Pulses: within normal limits - Abdominal General gastrointestinal: soft - Integumentary Integumentary: Present: clear, warm - Allied Health Allied health notes reviewed: nursing HEART Score - HEART Score Troponin: Troponin T 0.031 ng/mL (0.00-0.029) H 04/08/22 17:47 Results - Labs CBC & Chem 7: 05/17/22 03:41 05/17/22 03:41 Labs: Laboratory Last Values WBC 16.2 K/mm3 (4.5-11.0) H 05/17/22 03:41 RBC 2.53 M/mm3 (3.65-5.03) L 05/17/22 03:41 Hgb 7.0 gm/dl (11.8-15.2) L 05/17/22 03:41 Hct 21.5 % (35.5-45.6) L 05/17/22 03:41 MCV 85 fl (84-94) 05/17/22 03:41 MCH 28 pg (28-32) 05/17/22 03:41 MCHC 33 % (32-34) 05/17/22 03:41 RDW 16.2 % (13.2-15.2) H 05/17/22 03:41 Plt Count 300 K/mm3 (140-440) 05/17/22 03:41 Lymph % (Auto) 8.1 % (13.4-35.0) L 05/09/22 15:15 [place] % (Auto) 4.9 % (0.0-7.3) 05/09/22 15:15 Eos % (Auto) 0.6 % (0.0-4.3) 05/09/22 15:15 Baso % (Auto) 0.3 % (0.0-1.8) 05/09/22 15:15 Lymph # (Auto) 0.9 K/mm3 (1.2-5.4) L 05/09/22 15:15 [place] # (Auto) 0.5 K/mm3 (0.0-0.8) 05/09/22 15:15 Eos # (Auto) 0.1 K/mm3 (0.0-0.4) 05/09/22 15:15 Baso # (Auto) 0.0 K/mm3 (0.0-0.1) 05/09/22 15:15 Add Manual Diff Complete 05/17/22 03:41 Total Counted 100 05/17/22 03:41 Seg Neutrophils % Litigation Attorney 05/17/22 03:41 Seg Neuts % (Manual) 96.0 % (40.0-70.0) H 05/17/22 03:41 Band Neutrophils % 0 % 05/17/22 03:41 Lymphocytes % (Manual) 1.0 % (13.4-35.0) L 05/17/22 03:41 Reactive Lymphs % (Man) 0 % 05/17/22 03:41 Monocytes % (Manual) 3.0 % (0.0-7.3) 05/17/22 03:41 Eosinophils % (Manual) 0 % (0.0-4.3) 05/17/22 03:41 Basophils % (Manual) 0 % (0.0-1.8) 05/17/22 03:41 Metamyelocytes % 0 % 05/17/22 03:41 Myelocytes % 0 % 05/17/22 03:41 Promyelocytes % 0 % 05/17/22 03:41 Blast Cells % 0 % 05/17/22 03:41 Nucleated RBC % Not Reportable 05/17/22 03:41 Seg Neutrophils # 9.2 K/mm3 (1.8-7.7) H 05/09/22 15:15 Seg Neutrophils # Man 15.6 K/mm3 (1.8-7.7) H 05/17/22 03:41 Band Neutrophils # 0.0 K/mm3 05/17/22 03:41 Lymphocytes # (Manual) 0.2 K/mm3 (1.2-5.4) L 05/17/22 03:41 Abs React Lymphs (Man) 0.0 K/mm3 05/17/22 03:41 Monocytes # (Manual) 0.5 K/mm3 (0.0-0.8) 05/17/22 03:41 Eosinophils # (Manual) 0.0 K/mm3 (0.0-0.4) 05/17/22 03:41 Basophils # (Manual) 0.0 K/mm3 (0.0-0.1) 05/17/22 03:41 Metamyelocytes # 0.0 K/mm3 05/17/22 03:41 Myelocytes # 0.0 K/mm3 05/17/22 03:41 Promyelocytes # 0.0 K/mm3 05/17/22 03:41 Blast Cells # 0.0 K/mm3 05/17/22 03:41 WBC Morphology Not Reportable 05/17/22 03:41 Hypersegmented Neuts Not Reportable 05/17/22 03:41 Hyposegmented Neuts Not Reportable 05/17/22 03:41 Hypogranular Neuts Not Reportable 05/17/22 03:41 Smudge Cells Not Reportable 05/17/22 03:41 Toxic Granulation Not Reportable 05/17/22 03:41 Toxic Vacuolation Not Reportable 05/17/22 03:41 Dohle Bodies Not Reportable 05/17/22 03:41 Pelger-Huet Anomaly Not Reportable 05/17/22 03:41 Terry Rods Not Reportable 05/17/22 03:41 Platelet Estimate Consistent w auto 05/17/22 03:41 Clumped Platelets Not Reportable 05/17/22 03:41 Plt Clumps, EDTA Not Reportable 05/17/22 03:41 Large Platelets Not Reportable 05/17/22 03:41 Giant Platelets Not Reportable 05/17/22 03:41 Platelet Satelliting Not Reportable 05/17/22 03:41 Plt Morphology Comment Not Reportable 05/17/22 03:41 RBC Morphology Not Reportable 05/17/22 03:41 Dimorphic RBCs Not Reportable 05/17/22 03:41 Polychromasia Not Reportable 05/17/22 03:41 Hypochromasia Not Reportable 05/17/22 03:41 Poikilocytosis Not Reportable 05/17/22 03:41 Anisocytosis 1+ 05/17/22 03:41 Microcytosis Not Reportable 05/17/22 03:41 Macrocytosis Not Reportable 05/17/22 03:41 Spherocytes Not Reportable 05/17/22 03:41 Pappenheimer Bodies Not Reportable 05/17/22 03:41 Sickle Cells Not Reportable 05/17/22 03:41 Target Cells Not Reportable 05/17/22 03:41 Tear Drop Cells Not Reportable 05/17/22 03:41 Ovalocytes Not Reportable 05/17/22 03:41 Helmet Cells Not Reportable 05/17/22 03:41 [place] Bodies Not Reportable 05/17/22 03:41 [place] Rings Not Reportable 05/17/22 03:41 [place] Cells Not Reportable 05/17/22 03:41 Bite Cells Not Reportable 05/17/22 03:41 Crenated Cell Not Reportable 05/17/22 03:41 Elliptocytes Not Reportable 05/17/22 03:41 Acanthocytes (Spur) Not Reportable 05/17/22 03:41 Rouleaux Not Reportable 05/17/22 03:41 Hemoglobin C Crystals Not Reportable 05/17/22 03:41 Schistocytes Not Reportable 05/17/22 03:41 Malaria parasites Not Reportable 05/17/22 03:41 [place] Bodies Not Reportable 05/17/22 03:41 Hem Pathologist Commnt No 05/17/22 03:41 PT 13.6 Sec. (12.2-14.9) 04/13/22 04:30 INR 0.94 (0.87-1.13) 04/13/22 04:30 APTT 35.7 Sec. (24.2-36.6) 04/07/22 03:51 ABG pH 7.383 pH Units (7.350-7.450) 05/04/22 09:36 ABG pCO2 75.0 mm Hg 05/04/22 09:36 ABG pO2 55.4 mm Hg (80.0-90.0) L 05/04/22 09:36 ABG HCO3 43.7 mmol/L (20.0-26.0) H 05/04/22 09:36 ABG O2 Saturation 87.4 % (95.0-99.0) L 05/04/22 09:36 ABG O2 Content 11.0 (0.0-44) 05/04/22 09:36 ABG Base Excess 16.1 mmol/L (-2.0-3.0) H 05/04/22 09:36 ABG Hemoglobin 9.1 gm/dl (14.0-18.0) L 05/04/22 09:36 ABG Carboxyhemoglobin 1.5 % (0.0-5.0) 05/04/22 09:36 ABG Methemoglobin 0.4 % (0.0-1.5) 05/04/22 09:36 Oxyhemoglobin 85.7 % (95.0-99.0) L 05/04/22 09:36 FiO2 30 % 05/04/22 09:36 Sodium 132 mmol/L (137-145) L 05/17/22 03:41 Potassium 3.6 mmol/L (3.6-5.0) 05/17/22 03:41 Chloride 95.0 mmol/L (98-107) L 05/17/22 03:41 Carbon Dioxide 28 mmol/L (22-30) 05/17/22 03:41 Anion Gap 13 mmol/L 05/17/22 03:41 BUN 22 mg/dL (9-20) H 05/17/22 03:41 Creatinine < 0.2 mg/dL (0.8-1.3) L 05/17/22 03:41 Estimated GFR > 60 ml/min 05/17/22 03:41 BUN/Creatinine Ratio 110 % 05/17/22 03:41 Glucose 122 mg/dL (75-100) H 05/17/22 03:41 POC Glucose 106 mg/dL (70-105) H 05/17/22 07:53 Lactic Acid 1.90 mmol/L (0.7-2.0) 04/02/22 19:39 Calcium 8.8 mg/dL (8.4-10.2) 05/17/22 03:41 Phosphorus 2.80 mg/dL (2.5-4.5) 05/17/22 03:41 Magnesium 1.70 mg/dL (1.7-2.3) 05/17/22 03:41 Total Bilirubin 0.80 mg/dL (0.1-1.2) 04/02/22 19:39 AST 15 units/L (5-40) 04/02/22 19:39 ALT 9 units/L (7-56) 04/02/22 19:39 Alkaline Phosphatase 43 units/L (35-129) 04/02/22 19:39 Total Creatine Kinase 46 units/L (55-170) L 04/08/22 17:47 CK-MB (CK-2) 2.6 ng/mL (0.0-4.0) 04/08/22 17:47 CK-MB (CK-2) Rel Index 5.6 (0-4) H 04/08/22 17:47 Troponin T 0.031 ng/mL (0.00-0.029) H 04/08/22 17:47 C-Reactive Protein 31.20 mg/dL (0.00-1.30) H 05/17/22 03:41 Total Protein 4.6 g/dL (6.3-8.2) L 04/02/22 19:39 Albumin 2.7 g/dL (3.9-5) L 04/02/22 19:39 Albumin/Globulin Ratio 1.4 % 04/02/22 19:39 Triglycerides 80 mg/dL (2-149) 04/02/22 19:39 Cholesterol 94 mg/dL (50-199) 04/02/22 19:39 LDL Cholesterol Direct 27 mg/dL (50-130) L 04/02/22 19:39 HDL Cholesterol 47 mg/dL (40-59) 04/02/22 19:39 Cholesterol/HDL Ratio 2.00 % 04/02/22 19:39 Procalcitonin 0.08 ng/mL (<0.15) 04/04/22 04:18 Urine Color Yellow (Yellow) 05/15/22 16:00 Urine Turbidity Clear (Clear) 05/15/22 16:00 Urine pH 6.0 (5.0-7.0) 05/15/22 16:00 Ur Specific [place] 1.017 (1.003-1.030) 05/15/22 16:00 Urine Protein <15 mg/dl mg/dL (Negative) 05/15/22 16:00 Urine Glucose (UA) Neg mg/dL (Negative) 05/15/22 16:00 Urine Ketones Neg mg/dL (Negative) 05/15/22 16:00 Urine Blood Neg (Negative) 05/15/22 16:00 Urine Nitrite Pos (Negative) 05/15/22 16:00 Urine Bilirubin Neg (Negative) 05/15/22 16:00 Urine Urobilinogen 2.0 mg/dL (<2.0) 05/15/22 16:00 Ur Leukocyte Esterase Neg (Negative) 05/15/22 16:00 Urine WBC (Auto) 1.0 /HPF (0.0-6.0) 05/15/22 16:00 Urine RBC (Auto) 2.0 /HPF (0.0-6.0) 05/15/22 16:00 U Epithel Cells (Auto) < 1.0 /HPF (0-13.0) 05/15/22 16:00 Urine Bacteria (Auto) 1+ /HPF (Negative) 05/15/22 16:00 Hyaline Casts 1 /LPF 04/05/22 17:45 Urine Mucus Few /HPF 05/15/22 16:00 Nasal Screen MRSA (PCR) Negative (Negative) 04/05/22 12:37 Vancomycin Trough 6.0 ug/mL (5.0-20.0) 04/05/22 18:53 Coronavirus (PCR) Negative (Negative) 04/07/22 14:52 Microbiology: Microbiology 05/15/22 04:52 Peripheral/Venous Blood Culture - Preliminary NO GROWTH AFTER 24 HOURS 05/15/22 04:24 Peripheral/Venous Blood Culture - Preliminary NO GROWTH AFTER 24 HOURS Perez/IV: Voiding Method Condom Catheter Active Medications - Current Medications Current Medications: Generic Name Dose Route Start Last Admin Trade Name Freq PRN Reason Stop Dose Admin Acetaminophen 650 mg 04/02/22 23:53 05/16/22 12:38 Acetaminophen 325 Mg Tab PO 650 mg Q6H PRN Administration Pain MILD(1-3)/Fever >100.5/FAITH Acetylcysteine 200 mg 05/04/22 20:00 05/17/22 07:50 Acetylcysteine 20% 200 Mg/1 Ml *For Inhalation Use* INHALATION 200 mg Q12HRT SEGUNDO Administration Albuterol 2.5 mg 05/05/22 20:00 05/17/22 07:50 Albuterol 2.5 Mg/3 Ml Nebu IH 2.5 mg Q12HRT SEGUNDO Administration Bisacodyl 10 mg 04/07/22 09:44 04/12/22 10:06 Bisacodyl 10 Mg Rect Supp [place] 10 mg QDAY PRN Administration Constipation Famotidine 20 mg 04/06/22 10:00 05/16/22 21:35 Famotidine 20 Mg Tab FEEDTUBE 20 mg BID SEGUNDO Administration Fentanyl 50 mcg 04/04/22 15:56 05/17/22 02:51 Fentanyl 100 Mcg/2 Ml Inj IV 50 mcg Q2HR PRN Administration For CPOT of greater than 3 Heparin Sodium (Porcine) 5,000 unit 04/03/22 06:00 05/17/22 05:46 Heparin 5,000 Unit/1 Ml Vial SUB-Q 5,000 unit Q8HR SEGUNDO Administration Cefepime HCl 2 gm in 100 mls @ 200 mls/hr 05/15/22 17:00 05/17/22 05:49 Cefepime/Ns 2 Gm/100 Ml IV 200 mls/hr Q12H SEGUNDO Administration Protocol Insulin Human Lispro 0 unit 05/05/22 06:00 05/17/22 07:29 Insulin Lispro 100 Unit/Ml SUB-Q Not Given Q8HR [facility] Protocol Magnesium Hydroxide 30 ml 04/02/22 23:53 Magnesium Hydroxide (Mom) Oral Liqd Udc PO Q4H PRN Constipation Metoprolol Tartrate 12.5 mg 05/03/22 13:00 05/17/22 05:49 Metoprolol Tartrate 25 Mg Tab FEEDTUBE Not Given Q6HR SEGUNDO Ondansetron HCl 4 mg 04/02/22 23:53 Ondansetron 4 Mg/2 Ml Inj IV Q8H PRN Nausea And Vomiting Quetiapine Fumarate 50 mg 05/13/22 11:00 05/16/22 21:34 Quetiapine 100 Mg Tab FEEDTUBE 50 mg BID SEGUNDO Administration Scopolamine 1 each 05/12/22 09:00 05/15/22 09:07 Scopolamine Transdermal Patch 72 Hr TD 1 each Q3D SEGUNDO Administration Senna 8.8 mg 05/16/22 22:00 05/16/22 21:34 Sennosides Oral Liqd 8.8 Mg/5 Ml Oral Liqd PO 8.8 mg QHS SEGUNDO Administration Sodium Chloride 10 ml 04/03/22 10:00 05/16/22 22:46 Sodium Chloride 0.9% 10 Ml Flush Syringe IV 10 ml BID SEGUNDO Administration Sodium Chloride 10 ml 04/02/22 23:53 05/16/22 05:10 Sodium Chloride 0.9% 10 Ml Flush Syringe IV 10 ml PRN PRN Administration LINE FLUSH Nutrition/Malnutrition Assess - Dietary Evaluation Nutrition/Malnutrition Findings: Nutrition Notes Start: 04/04/22 13:13 Freq: Status: Active Protocol: Document 05/11/22 11:49 COLLEEN (Rec: 05/11/22 12:02 COLLEEN [id number]) Nutrition Notes Initial or Follow up Reassessment Current Diagnosis Coronary Artery Disease, Decubitus(Pressure Ulcer), Sepsis,Respiratory Failure, Malnutrition Other Pertinent Diagnosis HCAP, ALS, Broncopneumonia, NSTEMI, Cardiomyopathy, ... Current Diet TF-Vital AF 1.2 Anurag @ 50 ml/hr (since D 04/15). Labs/Tests 05/09: Cl 92.9, CO2 40, Crea < 0.2, Glu 141. Pertinent Medications 05/11: Nutritionally unremarkable. Height 5 ft 4.8 in Weight 46.8 kg [place] Body Weight (kg) 61.27 BMI 17.2 Weight change and time frame No body weight change reported in 5 weeks. Weight Status Underweight Subjective/Other Information RD consult for routine F/U on TF tolerance/continuation. TF continues as prescribed, and well tolerated, according to RN notes. Pt continues on Mechanical ventilation, O2 saturation @ 93%, according to Physical Assessment Histroy notes. Pt will be discharged home with family; awaiting home- Vent family training to be over on 05/12, according to Progress notes. Percent of energy/protein needs met: Prescribed TF-Vital AF 1.2 Anurag @ 50 ml/hr provides for energy/protein needs (1,450 Kcal/91 g) during LOS, 98% Kcal; 100% AA. Burn Absent Trauma Absent GI Symptoms Constipation Difficulty In Swallowing,Chewing Food Allergy No Skin Integrity/Comment Sacral open wound. Current % PO Other Minimum of two criteria No #1 Nutrition Diagnosis Inadequate oral intake Diagnosis Progress(for reassessment Continues documentation) Is patient on ventilator? Yes Is Patient Ambulatory and/or Out of Bed No REE-([facility]-confined to bed) [phone] Calculation Used for Recommendations [facility] Additional Notes Protein: 1.2-2 g/Kg IBW; 73- 122 g/day. Fluids: 1 ml/Kcal, or as per MD. Nutrition Intervention Nutrition Support: Continue TF-Vital AF 1.2 Anurag @ 50 ml/hr. Flush: 80 ml water Q 4 hr, or as per MD. Kcal 1,450 Protein (gm) 91 Carbohydrates (gm) 134 Fat (gm) 65 Fluid (mL) 980 Fiber (gm) 6 % RDI: 98% Kcal; 100% AA. Goal #1 Provide at least 75% of energy /protein needs through Enteral Feeding during LOS. Follow-Up By: 05/18/22 Additional Comments Continue monitoring TF tolerance and BM. - Malnutrition Assessment Minimum of two criteria: Yes - Attestation Statement I have reviewed and agreed w/ Malnutrition eval & tx plan: Yes
[2022-05-17] MEDS: QUEtiapine 100 MG TAB FEEDTUBE SCH ×2 (09:34→21:50)
[2022-05-17] MEDS: FAMOTIDINE 20 MG TAB FEEDTUBE SCH ×2 (09:34→21:50)
[2022-05-17] MEDS ORDERED: VANCOMYCIN PHARMACY TO DOSE IV SCH (11:00)
[2022-05-17] MEDS ORDERED: VANCOMYCIN/NS 1 GM/250 ML 1 GM/250 ML BAG IV SCH (11:00)
[2022-05-17] MEDS: ACETAMINOPHEN 325 MG TAB PO PRN (15:47)
[2022-05-17] MEDS ORDERED: SODIUM CHLORIDE 0.9% 1000 ML 1,000 ML IV SCH (16:15)
[2022-05-17] MEDS: VANCOMYCIN/NS 1 GM/250 ML 1 GM/250 ML BAG IV SCH (21:49)
[2022-05-17] MEDS: SENNOSIDES ORAL LIQD 8.8 MG/5 ML ORAL LIQD PO SCH (21:50)
[2022-05-17] MEDS: DOCUSATE SODIUM 100 MG/10 ML ORAL LIQD PO SCH (21:50)
[2022-05-18] MEDS: fentaNYL 100 MCG/2 ML INJ IV PRN ×4 (00:17→22:14)
[2022-05-18] MEDS: METOPROLOL TARTRATE 25 MG TAB FEEDTUBE SCH ×4 (00:18→17:12)
[2022-05-18] MEDS: CEFEPIME/NS 2 GM/100 ML 2 GM/100 ML BAG IV SCH ×2 (02:40→09:02)
[2022-05-18 04:18] LABS: Bilirubin,Urine NEG (Negative); Blood,Urine NEG (Negative); Color,Urine Amber (Yellow); Urobilinogen,Urine < 2.0 mg/dL (<2.0)
[2022-05-18 04:21] LABS: Bacteria,Urine 1+ /HPF (Negative); Mucus,Urine FEW /HPF
[2022-05-18 06:21] LABS: BUN/Creatinine Ratio 115; Blood Urea Nitrogen 23 mg/dL (9-20); Calcium 8.5 mg/dL (8.4-10.2); Hemolysis Index 6
[2022-05-18] MEDS: HEPARIN 5,000 UNIT/1 ML VIAL SUB-Q SCH ×3 (06:48→22:13)
[2022-05-18] MEDS: INSULIN LISPRO 100 UNIT/ML SUB-Q SCH ×2 (06:48→13:57)
--- NOTE | 2022-05-18 07:05 | XRay Report ---
CHEST 1 VIEW 05/18/2022 5:42 AM INDICATION / CLINICAL INFORMATION: fevers. COMPARISON: Previous day. FINDINGS: SUPPORT DEVICES: Tracheostomy unchanged. HEART / MEDIASTINUM: No significant abnormality. LUNGS / PLEURA: Patchy infiltrates remain at the lung bases. Mild improving basilar aeration. No pneu mothorax. ADDITIONAL FINDINGS: No significant additional findings. IMPRESSION: Mild improving basilar aeration. Signer Name: Tanmay Cheng MD Signed: 05/18/2022 7:01 AM Workstation Name: [id number]
[2022-05-18 07:46] LABS: Hematocrit 22.3 % (35.5-45.6); Hemoglobin 7.1 gm/dl (11.8-15.2); Mean Corpuscular HGB Conc 32 % (32-34); Mean Corpuscular Volume 86 fl (84-94); Platelet Count 325 K/mm3 (140-440); Red Blood Count 2.58 M/mm3 (3.65-5.03); Red Cell Distribution Width 16.1 % (13.2-15.2)
[2022-05-18] MEDS: ACETYLCYSTEINE 20% 200 MG/1 ML *FOR INHALATION USE INHALATION SCH ×2 (07:59→20:44)
[2022-05-18] MEDS: ALBUTEROL 2.5 MG/3 ML NEBU IH SCH ×2 (07:59→20:45)
[2022-05-18] MEDS: ACETAMINOPHEN 325 MG TAB PO PRN (09:01)
[2022-05-18] MEDS: VANCOMYCIN/NS 1 GM/250 ML 1 GM/250 ML BAG IV SCH ×2 (09:02→22:17)
[2022-05-18] MEDS: DOCUSATE SODIUM 100 MG/10 ML ORAL LIQD PO SCH (09:02)
[2022-05-18] MEDS: FAMOTIDINE 20 MG TAB FEEDTUBE SCH ×2 (09:02→22:13)
[2022-05-18] MEDS: QUEtiapine 100 MG TAB FEEDTUBE SCH ×2 (09:02→22:13)
[2022-05-18] MEDS: SCOPOLAMINE TRANSDERMAL PATCH 72 HR TD SCH (09:03)
[2022-05-18] MEDS ORDERED: SODIUM CHLORIDE 0.9% 500 ML 500 ML IV NR (11:08)
--- NOTE | 2022-05-18 11:11 | Progress Note ---
Assessment and Plan Assessment and plan: This is a 57-year-old male with known history of ALS, recently hospitalized at [facility] admitted for acute hypoxemic respiratory failure 2/2 pneumonia Hospital Course to Date: 04/03: Intubated and Sedated on versed gtt, RASS-5. CT head/brain noted with no acute intracranial abnormality. Plan to initiated precededx gtt and wean off versed for a RASS goal of 0 to -2. CT chect also reviewed, findings are most consistent with acute bronchopneumonia. Continue empiric IV Abx, vent adjustment per CCM. ID consulted. Continue to F/U on cultures. Titrate pressor for MAP ab ove 65. Medical records requested from [facility]. 04/04: Remains stable on the vent, easily arousable on precedex gtt, not following commands. Plan for SAT/SBT today. PRN analgesia for CPOT greater than 3. Fevers improved, cultures and procal pending. Continue current IV abx, ID also consulted. Remains on low dose pressors, titrate pressors for a MAP above 65. 04/05: Long discussion with family with use of translation phone with CCM regarding goals of care. Family to have meeting amongst themselves and informed care team of decisions. Fentanyl drip added for respiratory distress. Remains on Precedex drip. Antibiotics per ID. Given 2L NS bolus with levophed gtt 04/06: Family discussion with Dr. Grayson for goals of care. CXR shows possible mucus plug, continue CPT as FiO2 is being able to be weaned. Potassium repleted. Weaning fentnyl gtt. 04/07: Ultrasound guided thoracentesis today scheduled, inadequate amount of pleural effusion on so not completed. Patient was started on Levophed overnight which was weaned off this morning however had to be started twice a day. Remain s on fentanyl and Precedex. Cardiology discontinued BB and ACEi in setting of hypotension. 04/08: COVID-19 PCR negative. Routine EEG ordered by cardiology which showed ST changes, cardiology aware. They will continue conservative treatment. Repeat troponins 0.030 which are less than admit of 0.048. Dr. Grayson had a long discussion with with the use of park interpreter today at bedside and has not made a decision regarding goals of care. Possible consult to surgery for trach/PEG early next week. Continues to require Precedex and fentanyl drip for sedation. Carvedilol/lisinopril discontinued as patient is continuously on Levophed. 04/09: No acute events reported overnight, remains on fentanyl, Precedex and Levophed drips. Dr. Grayson and Dr. Pineda updated family at bedside exte nsively today. Consulted surgery for trach/PEG. COVID-19 PCR negative. 04/10: Patient noted to have desaturation episodes, FiO2 increased slightly to 35%. Will add Mucomyst. Remains on fentanyl and Precedex. Off of Levophed. Surgery consulted for trach/PEG. 04/11: FiO2 increased over night likely related to hypoxia, continues on fent gtt, weaning precedex gtt as he is also on Seroquel. Will d/w CCM re scheduled or prn oxycodone 04/12: Periods of hypoxia and tachycardia this am. Symptoms improved post deep suction and tracheal lavage, Repeat CXR noted with no significant change. Continue CPT and mucomyst. Plan for possible trach/PEG tomorrow by general surgery. 04/13: Remains stable on the vent. Patient is wake and tracking but does not follow simple commands. No report of hypoxia from overnight, continue CPT and mucomyst. Plan for track and PEG today by General Surgery. Plan for LTAC placement post procedure, case management to arrange. 04/14: VIRGILIO overnight, Trach and PEG postponed for today by general surgery. Plan for LTAC placement post procedure, case management to arrange. 04/15: S/p Trach and PEG. Up to 80% FiO2 this am, this am CXR noted suggesting possible mucus plug. D/W [facility] plan for bronch today. Continue CPT and mucomyst. Plan of care thoroughly discussed with patient's and son (who translated for ) at the bedside. Per , manager beauty had already discussed the risks and benefits of the procedure yesterday. She verbalized understanding and agreed with procedure and current care plan, consent signed. Okay to use PEG-tube for meds this am, resume TF once okay by general Surgery. Case management to arrange LTAC placement. 04/16: s/p Bronchocopy by [facility]. FiO2 down to 60%, angela 10 this am. This am CXR with moderate improvement. Continue CPT and mucomyst, wean Fio2 as tolerated for SPO2 above 92%. Patient is tolerating TF, advance to goal as ordered. Possible LTAC placement, case management to arrange. 04/17: VIRGILIO overnight. remains stable on the vent, recent CXR and this am ABG noted. Continue CPT and mucomyst, wean Fio2 as tolerated. 04/18: Remains stable on the vent, Fio2 down to 55% and peep of 8 this am. Continue to wean as tolerated, CPT, and mucomyst. Dsiposition- LTAC placement, case management to arrange. 04/19: No acute events overnight. Continue current management. 04/20: No acute events overnight, continue current management 04/21: Patient had chest ultrasound which showed trace pleural effusions, chest x-ray improved after the addition of Mucomyst yesterday. FiO2 55-65%. No acute events overnight. more interactive today. 04/22: Seroquel changed to BID, FiO2 was increased to 60%. RT increased FIO2 to 100 d/t desaturation into the 80s but was able to wean down. CCM increased PEEP and decreased FiO2. 04/23: CCM increase PEEP, no acute events reported overnight. 04/24: Spoke to RT about decreasing FiO2 as tolerated. No acute events reported overnight. Continue supportive management. 04/25: Weaning as tolerated. no acute events overnight. RT to attempt CPAP again today 04/26: VIRGILIO overnight. Patient failed PSV trial again this morning. Continue supportive management and daily PST trial. 04/27: Patient failed PSV trial again this am due to episodes of apnea. Continue daily PSV trial as tolerated. Case management to arrange LTAC placement 04/28: Remains stable. Continue daily PSV trial as tolerated. Awaiting approval for LTAC 04/29: VIRGILIO overnight. Continue daily PSV trial. Awaiting approval for LTAC, case management to arrange. 04/30: Patient continue to fail PSV trial. Per case management patient was denied for LTAC, now possible SNF placement. Case managemen to arrange. Continue supportive measures and daily PSV trial as tolerated. 05/01: VIRGILIO overnight. Continue supportive measures and daily PSV trial as tolerated. Possible SNF placement. 05/02: Continue supportive measures and daily PSV trial as tolerated. Possible SNF placement, case management to arrange 05/03: no acute events overnight, CM arranging home vent setup. Family declined SNF. 05/04: RN/RT reports thin secretions, increase in FiO2 for decreased oxygen on ABG. No acute events overnight. 05/05: Family scheduled for teaching session today at 2pm. Increase in FiO2 overnight to 45%. Awaiting vent setup for home care for ventilation secondary to tracheostomy. 05/06: No acute events reported overnight, T-max 100.9. FiO2 45%. Awaiting discharge home with vent when teaching is completed 05/07: No acute events reported overnight, Awaiting discharge home with vent when teaching is completed 05/08: No acute events reported overnight, Awaiting discharge home with vent when teaching is completed 05/09: no acute events reported overnight. Ordered routine labs today. Family continuing with vent training. Anticipate discharge home this week possibly on Tuesday. 05/10: VIRGILIO overnight. Continue current supportive measures and family training at the bedside. Plan for discharge home tomorrow. 05/11: Discharge home today. supervisor rolling room at 12pm 05/12: Discharge cancelled yesterday. Patient desated on home vent at max setting. Home vent is not sufficient to support patient's ventilation need. D/w CCM, Dr. Valdivia, who recommend SNF placement at this time. Patient's family notified at the bedside. All questions and concerns were address at this time. Further discussion on alternative placement to be determine and discussed with patient's family and case management today. The respiratory therapist from [facility] coming is schedule to come at 1400 today for further assessment. 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; WOCN consult placed 05-18 ID and gen surg consult NEURO- ALS; profound debility and weakness on seroquel bid alert nodding appropriately PRN pain meds family at bedside and updated on plan of care social service following for d/c planning will need interpreter and translator given concerns that family does not really understand disease and prognosis CV- tachycardia tachy today with fever hgb 7 from 12 on admit given tachycardia which has been persistent/fever/non tolerance of beta artis-- [address] no pressors is on metop - monitor closely has not tolerated and not received withhold parameters keep MAP > 70 RESP ac resp failure; pna chest xray mildly improved today on home vent [id number] peep secretions controlled on scop patch trend oxygen sats GI- prot. anurag malnutriton TF nutrition following asked to follow for micronutrient eval TF changed per recs pepcid bowel reg - colace senna;added miralax given no BM in several days - nap condom cath given fevers will send ua follow and replace electrolytes as needed bladder scan Q8h avoid retention HEME- anemia VTE SCD and SQH Hgb 7 1 RBC today follow up cbc p RBC no bleeding on exam ID- pseudomonas pna; sacral wound fevers/tachy off pressors on cefipime-- changed to wesly today 05-17 added vanc ID following mrsa neg covid neg if temp > 101- reculture blood and sputum follow culture data large sacral wound- new ID following gen surg consult WOCN consult 05-17-- they are to see today turn Q2h ENDO- stress hyperglycemia SSI PRN Disposition Plan: icu Total Time Spent with Patient (Minutes): 60 History Interval history: fever overnight Hospitalist Physical - Constitutional Vitals: Temp Pulse Resp BP Pulse Ox 99.6 F 129 H 25 H 98/54 97 05/18/22 07:16 05/18/22 10:00 05/18/22 10:00 05/18/22 10:00 05/18/22 10:00 General appearance: Present: no acute distress, cachectic, other (trach/) - EENT Eyes: Present: PERRL ENT: clear oral mucosa - Neck Neck: Present: supple, normal ROM - Respiratory Respiratory effort: normal - Cardiovascular Rhythm: regular - Extremities Extremities: no ischemia Peripheral Pulses: within normal limits - Abdominal General gastrointestinal: soft - Integumentary Integumentary: Present: clear, warm, dry - Allied Health Allied health notes reviewed: nursing HEART Score - HEART Score Troponin: Troponin T 0.031 ng/mL (0.00-0.029) H 04/08/22 17:47 Results - Labs CBC & Chem 7: 05/18/22 05:41 05/18/22 05:41 Labs: Laboratory Last Values WBC 15.0 K/mm3 (4.5-11.0) H 05/18/22 05:41 RBC 2.58 M/mm3 (3.65-5.03) L 05/18/22 05:41 Hgb 7.1 gm/dl (11.8-15.2) L 05/18/22 05:41 Hct 22.3 % (35.5-45.6) L 05/18/22 05:41 MCV 86 fl (84-94) 05/18/22 05:41 MCH 28 pg (28-32) 05/18/22 05:41 MCHC 32 % (32-34) 05/18/22 05:41 RDW 16.1 % (13.2-15.2) H 05/18/22 05:41 Plt Count 325 K/mm3 (140-440) 05/18/22 05:41 Lymph % (Auto) 8.1 % (13.4-35.0) L 05/09/22 15:15 Moore % (Auto) 4.9 % (0.0-7.3) 05/09/22 15:15 Eos % (Auto) 0.6 % (0.0-4.3) 05/09/22 15:15 Baso % (Auto) 0.3 % (0.0-1.8) 05/09/22 15:15 Lymph # (Auto) 0.9 K/mm3 (1.2-5.4) L 05/09/22 15:15 Moore # (Auto) 0.5 K/mm3 (0.0-0.8) 05/09/22 15:15 Eos # (Auto) 0.1 K/mm3 (0.0-0.4) 05/09/22 15:15 Baso # (Auto) 0.0 K/mm3 (0.0-0.1) 05/09/22 15:15 Add Manual Diff Complete 05/17/22 03:41 Total Counted 100 05/17/22 03:41 Seg Neutrophils % [employer] 05/17/22 03:41 Seg Neuts % (Manual) 96.0 % (40.0-70.0) H 05/17/22 03:41 Band Neutrophils % 0 % 05/17/22 03:41 Lymphocytes % (Manual) 1.0 % (13.4-35.0) L 05/17/22 03:41 Reactive Lymphs % (Man) 0 % 05/17/22 03:41 Monocytes % (Manual) 3.0 % (0.0-7.3) 05/17/22 03:41 Eosinophils % (Manual) 0 % (0.0-4.3) 05/17/22 03:41 Basophils % (Manual) 0 % (0.0-1.8) 05/17/22 03:41 Metamyelocytes % 0 % 05/17/22 03:41 Myelocytes % 0 % 05/17/22 03:41 Promyelocytes % 0 % 05/17/22 03:41 Blast Cells % 0 % 05/17/22 03:41 Nucleated RBC % Not Reportable 05/17/22 03:41 Seg Neutrophils # 9.2 K/mm3 (1.8-7.7) H 05/09/22 15:15 Seg Neutrophils # Man 15.6 K/mm3 (1.8-7.7) H 05/17/22 03:41 Band Neutrophils # 0.0 K/mm3 05/17/22 03:41 Lymphocytes # (Manual) 0.2 K/mm3 (1.2-5.4) L 05/17/22 03:41 Abs React Lymphs (Man) 0.0 K/mm3 05/17/22 03:41 Monocytes # (Manual) 0.5 K/mm3 (0.0-0.8) 05/17/22 03:41 Eosinophils # (Manual) 0.0 K/mm3 (0.0-0.4) 05/17/22 03:41 Basophils # (Manual) 0.0 K/mm3 (0.0-0.1) 05/17/22 03:41 Metamyelocytes # 0.0 K/mm3 05/17/22 03:41 Myelocytes # 0.0 K/mm3 05/17/22 03:41 Promyelocytes # 0.0 K/mm3 05/17/22 03:41 Blast Cells # 0.0 K/mm3 05/17/22 03:41 WBC Morphology Not Reportable 05/17/22 03:41 Hypersegmented Neuts Not Reportable 05/17/22 03:41 Hyposegmented Neuts Not Reportable 05/17/22 03:41 Hypogranular Neuts Not Reportable 05/17/22 03:41 Smudge Cells Not Reportable 05/17/22 03:41 Toxic Granulation Not Reportable 05/17/22 03:41 Toxic Vacuolation Not Reportable 05/17/22 03:41 Dohle Bodies Not Reportable 05/17/22 03:41 Pelger-Huet Anomaly Not Reportable 05/17/22 03:41 Terry Rods Not Reportable 05/17/22 03:41 Platelet Estimate Consistent w auto 05/17/22 03:41 Clumped Platelets Not Reportable 05/17/22 03:41 Plt Clumps, EDTA Not Reportable 05/17/22 03:41 Large Platelets Not Reportable 05/17/22 03:41 Giant Platelets Not Reportable 05/17/22 03:41 Platelet Satelliting Not Reportable 05/17/22 03:41 Plt Morphology Comment Not Reportable 05/17/22 03:41 RBC Morphology Not Reportable 05/17/22 03:41 Dimorphic RBCs Not Reportable 05/17/22 03:41 Polychromasia Not Reportable 05/17/22 03:41 Hypochromasia Not Reportable 05/17/22 03:41 Poikilocytosis Not Reportable 05/17/22 03:41 Anisocytosis 1+ 05/17/22 03:41 Microcytosis Not Reportable 05/17/22 03:41 Macrocytosis Not Reportable 05/17/22 03:41 Spherocytes Not Reportable 05/17/22 03:41 Pappenheimer Bodies Not Reportable 05/17/22 03:41 Sickle Cells Not Reportable 05/17/22 03:41 Target Cells Not Reportable 05/17/22 03:41 Tear Drop Cells Not Reportable 05/17/22 03:41 Ovalocytes Not Reportable 05/17/22 03:41 Helmet Cells Not Reportable 05/17/22 03:41 [place] Bodies Not Reportable 05/17/22 03:41 [place] Rings Not Reportable 05/17/22 03:41 Cheikh Cells Not Reportable 05/17/22 03:41 Bite Cells Not Reportable 05/17/22 03:41 Crenated Cell Not Reportable 05/17/22 03:41 Elliptocytes Not Reportable 05/17/22 03:41 Acanthocytes (Spur) Not Reportable 05/17/22 03:41 Rouleaux Not Reportable 05/17/22 03:41 Hemoglobin C Crystals Not Reportable 05/17/22 03:41 Schistocytes Not Reportable 05/17/22 03:41 Malaria parasites Not Reportable 05/17/22 03:41 [place] Bodies Not Reportable 05/17/22 03:41 Hem Pathologist Commnt No 05/17/22 03:41 PT 13.6 Sec. (12.2-14.9) 04/13/22 04:30 INR 0.94 (0.87-1.13) 04/13/22 04:30 APTT 35.7 Sec. (24.2-36.6) 04/07/22 03:51 ABG pH 7.383 pH Units (7.350-7.450) 05/04/22 09:36 ABG pCO2 75.0 mm Hg 05/04/22 09:36 ABG pO2 55.4 mm Hg (80.0-90.0) L 05/04/22 09:36 ABG HCO3 43.7 mmol/L (20.0-26.0) H 05/04/22 09:36 ABG O2 Saturation 87.4 % (95.0-99.0) L 05/04/22 09:36 ABG O2 Content 11.0 (0.0-44) 05/04/22 09:36 ABG Base Excess 16.1 mmol/L (-2.0-3.0) H 05/04/22 09:36 ABG Hemoglobin 9.1 gm/dl (14.0-18.0) L 05/04/22 09:36 ABG Carboxyhemoglobin 1.5 % (0.0-5.0) 05/04/22 09:36 ABG Methemoglobin 0.4 % (0.0-1.5) 05/04/22 09:36 Oxyhemoglobin 85.7 % (95.0-99.0) L 05/04/22 09:36 FiO2 30 % 05/04/22 09:36 Sodium 137 mmol/L (137-145) 05/18/22 05:41 Potassium 4.5 mmol/L (3.6-5.0) D 05/18/22 05:41 Chloride 97.9 mmol/L (98-107) L 05/18/22 05:41 Carbon Dioxide 30 mmol/L (22-30) 05/18/22 05:41 Anion Gap 14 mmol/L 05/18/22 05:41 BUN 23 mg/dL (9-20) H 05/18/22 05:41 Creatinine < 0.2 mg/dL (0.8-1.3) L 05/18/22 05:41 Estimated GFR > 60 ml/min 05/18/22 05:41 BUN/Creatinine Ratio 115 % 05/18/22 05:41 Glucose 128 mg/dL (75-100) H 05/18/22 05:41 POC Glucose 123 mg/dL (70-105) H 05/17/22 21:03 Lactic Acid 1.90 mmol/L (0.7-2.0) 04/02/22 19:39 Calcium 8.5 mg/dL (8.4-10.2) 05/18/22 05:41 Phosphorus 2.80 mg/dL (2.5-4.5) 05/17/22 03:41 Magnesium 1.70 mg/dL (1.7-2.3) 05/17/22 03:41 Total Bilirubin 0.80 mg/dL (0.1-1.2) 04/02/22 19:39 AST 15 units/L (5-40) 04/02/22 19:39 ALT 9 units/L (7-56) 04/02/22 19:39 Alkaline Phosphatase 43 units/L (35-129) 04/02/22 19:39 Total Creatine Kinase 46 units/L (55-170) L 04/08/22 17:47 CK-MB (CK-2) 2.6 ng/mL (0.0-4.0) 04/08/22 17:47 CK-MB (CK-2) Rel Index 5.6 (0-4) H 04/08/22 17:47 Troponin T 0.031 ng/mL (0.00-0.029) H 04/08/22 17:47 C-Reactive Protein 31.20 mg/dL (0.00-1.30) H 05/17/22 03:41 Total Protein 4.6 g/dL (6.3-8.2) L 04/02/22 19:39 Albumin 2.7 g/dL (3.9-5) L 04/02/22 19:39 Albumin/Globulin Ratio 1.4 % 04/02/22 19:39 Triglycerides 80 mg/dL (2-149) 04/02/22 19:39 Cholesterol 94 mg/dL (50-199) 04/02/22 19:39 LDL Cholesterol Direct 27 mg/dL (50-130) L 04/02/22 19:39 HDL Cholesterol 47 mg/dL (40-59) 04/02/22 19:39 Cholesterol/HDL Ratio 2.00 % 04/02/22 19:39 Procalcitonin 1.30 ng/mL (<0.15) 05/17/22 03:41 Urine Color Aracely (Yellow) 05/18/22 03:50 Urine Turbidity Clear (Clear) 05/18/22 03:50 Urine pH 5.0 (5.0-7.0) 05/18/22 03:50 Ur Specific [place]ing 1.030 (1.003-1.030) 05/18/22 03:50 Urine Protein 30 mg/dl mg/dL (Negative) 05/18/22 03:50 Urine Glucose (UA) Neg mg/dL (Negative) 05/18/22 03:50 Urine Ketones Tr mg/dL (Negative) 05/18/22 03:50 Urine Blood Neg (Negative) 05/18/22 03:50 Urine Nitrite Neg (Negative) 05/18/22 03:50 Urine Bilirubin Neg (Negative) 05/18/22 03:50 Urine Urobilinogen < 2.0 mg/dL (<2.0) 05/18/22 03:50 Ur Leukocyte Esterase Neg (Negative) 05/18/22 03:50 Urine WBC (Auto) 1.0 /HPF (0.0-6.0) 05/18/22 03:50 Urine RBC (Auto) 1.0 /HPF (0.0-6.0) 05/18/22 03:50 U Epithel Cells (Auto) 2.0 /HPF (0-13.0) 05/18/22 03:50 Urine Bacteria (Auto) 1+ /HPF (Negative) 05/18/22 03:50 Hyaline Casts 1 /LPF 04/05/22 17:45 Urine Mucus Few /HPF 05/18/22 03:50 Nasal Screen MRSA (PCR) Negative (Negative) 04/05/22 12:37 Vancomycin Trough 6.0 ug/mL (5.0-20.0) 04/05/22 18:53 Coronavirus (PCR) Negative (Negative) 04/07/22 14:52 Microbiology: Microbiology 05/15/22 04:52 Peripheral/Venous Blood Culture - Preliminary NO GROWTH AFTER 72 HOURS 05/15/22 04:24 Peripheral/Venous Blood Culture - Preliminary NO GROWTH AFTER 72 HOURS 05/17/22 17:04 Peripheral/Venous Blood Culture - Preliminary Culture in Progress 05/17/22 17:04 Peripheral/Venous Blood Culture - Preliminary Culture in Progress Perez/IV: Voiding Method Condom Catheter Active Medications - Current Medications Current Medications: Generic Name Dose Route Start Last Admin Trade Name Freq PRN Reason Stop Dose Admin Acetaminophen 650 mg 04/02/22 23:53 05/18/22 09:01 Acetaminophen 325 Mg Tab PO 650 mg Q6H PRN Administration Pain MILD(1-3)/Fever >100.5/FAITH Acetylcysteine 200 mg 05/04/22 20:00 05/18/22 07:59 Acetylcysteine 20% 200 Mg/1 Ml *For Inhalation Use* INHALATION Not Given Q12HRT SEGUNDO Albuterol 2.5 mg 05/05/22 20:00 05/18/22 07:59 Albuterol 2.5 Mg/3 Ml Nebu IH Not Given Q12HRT SEGUNDO Bisacodyl 10 mg 04/07/22 09:44 04/12/22 10:06 Bisacodyl 10 Mg Rect Supp HI 10 mg QDAY PRN Administration Constipation Docusate Sodium 100 mg 05/17/22 22:00 05/18/22 09:02 Docusate Sodium 100 Mg/10 Ml Oral Liqd PO Not Given BID SEGUNDO Famotidine 20 mg 04/06/22 10:00 05/18/22 09:02 Famotidine 20 Mg Tab FEEDTUBE 20 mg BID SEGUNDO Administration Fentanyl 50 mcg 04/04/22 15:56 05/18/22 09:01 Fentanyl 100 Mcg/2 Ml Inj IV 50 mcg Q2HR PRN Administration For CPOT of greater than 3 Heparin Sodium (Porcine) 5,000 unit 04/03/22 06:00 05/18/22 06:48 Heparin 5,000 Unit/1 Ml Vial SUB-Q 5,000 unit Q8HR SEGUNDO Administration Cefepime HCl 2 gm in 100 mls @ 200 mls/hr 05/17/22 10:00 05/18/22 09:02 Cefepime/Ns 2 Gm/100 Ml IV 200 mls/hr Q8H SEGUNDO Administration Protocol Vancomycin HCl 1 gm in 250 mls @ 167.007 mls/hr 05/17/22 22:00 05/18/22 09:02 Vancomycin/Ns 1 Gm/250 Ml IV 167.007 mls/hr Q12H SEGUNDO Administration Sodium Chloride 500 mls @ 0 mls/hr 05/18/22 11:08 Nacl 0.9% 500 Ml IV 05/18/22 23:59 ONCE NR As Directed Insulin Human Lispro 0 unit 05/05/22 06:00 05/18/22 06:48 Insulin Lispro 100 Unit/Ml SUB-Q Not Given Q8HR [facility] Protocol Magnesium Hydroxide 30 ml 04/02/22 23:53 Magnesium Hydroxide (Mom) Oral Liqd Udc PO Q4H PRN Constipation Metoprolol Tartrate 12.5 mg 05/03/22 13:00 05/18/22 06:48 Metoprolol Tartrate 25 Mg Tab FEEDTUBE Not Given Q6HR SEGUNDO Ondansetron HCl 4 mg 04/02/22 23:53 Ondansetron 4 Mg/2 Ml Inj IV Q8H PRN Nausea And Vomiting Quetiapine Fumarate 50 mg 05/13/22 11:00 05/18/22 09:02 Quetiapine 100 Mg Tab FEEDTUBE 50 mg BID SEGUNDO Administration Scopolamine 1 each 05/12/22 09:00 05/18/22 09:03 Scopolamine Transdermal Patch 72 Hr TD 1 each Q3D SEGNUDO Administration Senna 8.8 mg 05/16/22 22:00 05/17/22 21:50 Sennosides Oral Liqd 8.8 Mg/5 Ml Oral Liqd PO 8.8 mg QHS SEGUNDO Administration Sodium Chloride 10 ml 04/03/22 10:00 05/18/22 09:03 Sodium Chloride 0.9% 10 Ml Flush Syringe IV 10 ml BID SEGUNDO Administration Sodium Chloride 10 ml 04/02/22 23:53 05/16/22 05:10 Sodium Chloride 0.9% 10 Ml Flush Syringe IV 10 ml PRN PRN Administration LINE FLUSH Nutrition/Malnutrition Assess - Dietary Evaluation Nutrition/Malnutrition Findings: Nutrition Notes Start: 04/04/22 13:13 Freq: Status: Active Protocol: Document 05/17/22 18:11 BRIGITTE (Rec: 05/17/22 18:20 BRIGITTE [id number]) Nutrition Notes Need for Assessment generated from: MD Order Current Diagnosis Sepsis,Respiratory Failure Other Pertinent Diagnosis ALS, pneu Current Diet TF - Vital AF 1.2 at 50ml/hr Labs/Tests Na 132 BUN 22 CRP 31.2 Pertinent Medications Senokot Height 5 ft 4.8 in Weight 48.6 kg [place] Body Weight (kg) 61.27 BMI 17.9 Weight change and time frame Current wt obtained from bed scale Weight Status Underweight Subjective/Other Information RD consulted for malnutrition and to evaluate micronutrients /kcal. Pt remains on vent support. Pt tolerating TF; last BM reported on 05/15. Burn Absent Trauma Absent #1 Nutrition Diagnosis Inadequate oral intake Diagnosis Progress(for reassessment Continues documentation) Is patient on ventilator? Yes Is Patient Ambulatory and/or Out of Bed No REE-([facility]-confined to bed) [phone] Kcal/Kg value to use for calculation 40 Approximate Energy Requirements Using 1944 kcal/Kg Calculation Used for Recommendations Kcal/kg Additional Notes Pro needs 1.5-2g/k-97/day Fluid needs 1ml/kcal Nutrition Intervention Nutrition Support: Change TF formula to Osmolite 1.5 at 55ml/hr with 150ml water flush q4h. (Pt needs more calories for wt gain) Kcal 1,980 Protein (gm) 83 Carbohydrates (gm) 269 Fat (gm) 65 Fluid (mL) 1,006 Fiber (gm) 0 Goal #1 TF tolerance Goal #2 TF to meet 100% energy and pro needs Goal #3 Wt maintenance and/or gain Follow-Up By: 05/19/22 Additional Comments F/U: TF formula change/ tolerance, vent status - Malnutrition Assessment Minimum of two criteria: Yes - Attestation Statement I have reviewed and agreed w/ Malnutrition eval & tx plan: Yes
--- NOTE | 2022-05-18 12:42 | Progress Note ---
Assessment and Plan Cultures: 04/02/2022 urine culture: No growth 04/02/2022 sputum culture: Pseudomonas, Enterobacter 04/02/2022 blood culture: Bacillus in 1 set 04/05/2022 blood culture: No growth 04/15/2022 right middle lobe bronchial washings: Pseudomonas aeruginosa 05/15/2022 blood culture: No growth 05/17/2022 blood culture: In process A/P: 57-year-old man with progressive ALS, recently hospitalized at [facility] and was discharged on hospice, readmitted here with: #Sepsis, new fevers and leukocytosis: Etiology pneumonia v/s sacral decubitus ulcer with eschar #Hospital-acquired pneumonia: previously completed abx for Pseudomonas, Enterobacter. #Acute v/s now chronic respiratory failure: on the vent. S/P trach, PEG #ALS: Was on home hospice. #Bacillus bacteremia: likely contaminant. Recs: -Cefepime switched to IV meropenem -f/u sputum cultures, if negative for MRSA, vancomycin can be discontinued -If fevers and leukocytosis persist, may need debridement of his sacral decubitus ulcer Carmen German MD, FACP, [facility] ([facility]) O: [phone] F: [phone] C: [phone] Subjective Date of service: 05/18/22 Principal diagnosis: Ac and ch hypercapnic and hypoxemic Resp Failure; ALS; HCAP; Sepsis; NSTEMI Interval history: Patient has been spiking fevers over the last 3 days. ID reconsulted. Remains on the vent. WBC increasing. Also having periods of desaturation. Family members at bedside. Objective - Exam Narrative Exam: Physical Exam: Constitutional: awake, on the vent, trach + Head, Ears, Nose: Normocephalic, atraumatic. External ears, nose normal Eyes: Conjunctivae/corneas clear. No icterus. No ptosis. Neck: trach + Cardiovascular: S1, S2 + Respiratory: AE fair bilaterally and equal GI: Soft, bowel sounds +, PEG + Musculoskeletal: No pedal edema, no cyanosis. Skin: sacral decubitus + Hem/Lymphatic: No palpable cervical or supraclavicular nodes. No lymphangitis Psych: no agitation Neurological: awake, on the vent, exam limited - Constitutional Vitals: Vital Signs Temp Pulse Resp BP Pulse Ox 98.6 F 105 H 18 107/66 100 05/18/22 11:33 05/18/22 12:00 05/18/22 12:00 05/18/22 12:00 05/18/22 12:00 Temperature -Last 24 Hours Temperature 98.6 F Temperature 99.6 F Temperature 99.8 F Temperature 100.4 F Temperature 100.6 F Temperature 99.1 F - Labs CBC & Chem 7: 05/18/22 05:41 05/18/22 05:41 Labs: Abnormal lab results 05/17/22 05/18/22 05/18/22 Range/Units 21:03 05:41 05:41 WBC 15.0 H (4.5-11.0) K/mm3 RBC 2.58 L (3.65-5.03) M/mm3 Hgb 7.1 L (11.8-15.2) gm/dl Hct 22.3 L (35.5-45.6) % RDW 16.1 H (13.2-15.2) % Chloride 97.9 L (98-107) mmol/L BUN 23 H (9-20) mg/dL Creatinine < 0.2 L (0.8-1.3) mg/dL Glucose 128 H (75-100) mg/dL POC Glucose 123 H (70-105) mg/dL
[2022-05-18] MEDS: MEROPENEM/NS 500 MG/50 ML 500 MG/50 ML BAG IV SCH ×2 (13:57→22:16)
[2022-05-18] MEDS: POLYETHYLENE GLYCOL 3350 17 GM POWDER FEEDTUBE SCH (14:57)
--- NOTE | 2022-05-18 17:08 | Progress Note ---
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 Right lung hemiopacification- Atelectasis s/p Bronchoscopy Oropharyngeal dysphagia s/p PEG Protein calorie malnutrition Acute Bronchopneumonia HCAP Hypotension NSTEMI H/o Amyotrophic Lateral Sclerosis Nonverbal at Baseline Wound debridement tomorrow Will need to be placed on hospital ventilator for the procedure -Continue current antibiotics, ID following -Follow up cultures, trend temperature curve and WCC -Replace potassium- keep K >3.5; Mg at 2 and Phos >2.5 to optimize respiratory muscle function -Trach care, airway clearance, -continue with bronchodilators and chest PT -CXR,ABG as clinically indicated -Continue with mucolytics and chest PT -Blood cultures negative to date Previous trach aspirate- Pseudomonas -Titrate supplemental oxygen to keep SpO2 89-92% -VAP bundle addressed, aspiration precautions HOB >40 -Monitoring renal function, hemodynamics and electrolyte profile -Accuchecks with glycemic control. target blood glucose 140-180 mg/dL. Avoid hypoglycemia -Continue enteric nutritional support, bowel regimen -VTE prophylaxis- Heparin -Avoid nephrotoxins and renally dose all medications -Stress ulcer prophylaxis- Famotidine -Mobility, frequent turning, off loading per facility protocol to prevent pre ssure ulcers -Maintain sleep wake cycle, avoid benzodiazepines. -Limit delirium CONDITION:CRITICAL PROGNOSIS: GUARDED CODE STATUS; FULL CODE The high probability of a clinically significant, sudden or life threatening deterioration of the respiratory, cardiovascular, neurology system required my full and direct attention, intervention and personal management. The aggregate critical care time was [33] minutes. 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 Vitals, labs, medications, chart and imaging reviewed. Discussed with respiratory and nursing care staff. s/p trach and PEG. On PEEP 12, Vt 500ml and 8L flow Febrile overnight . Plan for wound debridement tomorrow Objective Vital Signs - 12hr 05/18/22 05/18/22 05/18/22 06:00 06:48 07:00 Temperature Pulse Rate 98 H 124 H Pulse Rate [ From Monitor] Respiratory 10 L 23 Rate Blood Pressure 97/60 97/60 120/77 O2 Sat by Pulse 100 90 Oximetry 05/18/22 05/18/22 05/18/22 07:16 07:53 08:00 Temperature 99.6 F Pulse Rate 135 H 133 H Pulse Rate [ 135 H From Monitor] Respiratory 24 24 Rate Blood Pressure 117/72 O2 Sat by Pulse 97 97 Oximetry 05/18/22 05/18/22 05/18/22 08:01 09:00 10:00 Temperature Pulse Rate 133 H 125 H 129 H Pulse Rate [ From Monitor] Respiratory 21 25 H Rate Blood Pressure 117/72 102/66 98/54 O2 Sat by Pulse 98 98 97 Oximetry 05/18/22 05/18/22 05/18/22 11:00 11:33 11:37 Temperature 98.6 F Pulse Rate 117 H 112 H Pulse Rate [ From Monitor] Respiratory 20 Rate Blood Pressure 103/56 103/56 O2 Sat by Pulse 100 100 Oximetry 05/18/22 05/18/22 05/18/22 12:00 13:00 14:00 Temperature Pulse Rate 109 H 104 H 106 H Pulse Rate [ 105 H From Monitor] Respiratory 25 H 25 H 8 L Rate Blood Pressure 107/66 104/63 93/64 O2 Sat by Pulse 100 98 99 Oximetry 05/18/22 05/18/22 05/18/22 15:00 16:48 17:03 Temperature 99.7 F H 99.6 F Pulse Rate 114 H 118 H 117 H Pulse Rate [ From Monitor] Respiratory 18 22 15 Rate Blood Pressure 87/68 94/61 105/75 O2 Sat by Pulse 97 98 98 Oximetry Constitutional: no acute distress, alert, other (resting in bed with mildly increased respiratory effort at rest) Eyes: non-icteric ENT: oropharynx moist, other (+ midline tracheostomy to home vent) Neck: supple, no lymphadenopathy, no JVD Effort: mildly labored Ascultation: Bilateral: diminished breath sounds (bases), rhonchi Percussion: Bilateral: not dull Cardiovascular: regular rate and rhythm, other (S1,S2) Gastrointestinal: normoactive bowel sounds, soft, non-tender, non-distended Integumentary: normal, decubitus ulcer (see wound care pictures) Extremities: no cyanosis, no edema, pink and warm, pulses normal Neurologic: pupils equal and round, other (functional quadriplegia) Psychiatric: mood appropriate, affect normal CBC and BMP: 05/18/22 23:21 05/18/22 05:41 ABG, PT/INR, D-dimer: ABG ABG pH 7.383 pH Units (7.350-7.450) 05/04/22 09:36 ABG pCO2 75.0 mm Hg 05/04/22 09:36 ABG pO2 55.4 mm Hg (80.0-90.0) L 05/04/22 09:36 ABG O2 Saturation 87.4 % (95.0-99.0) L 05/04/22 09:36 PT/INR, D-dimer PT 13.6 Sec. (12.2-14.9) 04/13/22 04:30 INR 0.94 (0.87-1.13) 04/13/22 04:30 Abnormal lab findings: Abnormal Labs 04/02/22 04/02/22 04/02/22 19:39 19:39 19:39 WBC 14.3 H RBC Hgb Hct MCV 96 H MCHC RDW Plt Count 104 L Lymph % (Auto) [place] % (Auto) Lymph # (Auto) [place] # (Auto) Seg Neutrophils % Seg Neuts % (Manual) 94.0 H Lymphocytes % (Manual) 1.0 L Seg Neutrophils # Seg Neutrophils # Man 13.4 H Lymphocytes # (Manual) 0.1 L PT 15.9 H INR 1.14 H ABG pH ABG pO2 ABG HCO3 ABG O2 Saturation ABG Base Excess ABG Hemoglobin Oxyhemoglobin Sodium 151 H Potassium Chloride Carbon Dioxide BUN Creatinine 0.5 L Glucose POC Glucose Calcium 8.2 L Phosphorus Magnesium 1.60 L Total Creatine Kinase CK-MB (CK-2) Rel Index Troponin T 0.048 H C-Reactive Protein Total Protein 4.6 L Albumin 2.7 L LDL Cholesterol Direct 27 L Urine WBC (Auto) Crossmatch 04/02/22 04/03/22 04/03/22 19:42 05:14 06:30 WBC RBC Hgb Hct MCV MCHC RDW Plt Count Lymph % (Auto) [place] % (Auto) Lymph # (Auto) [place] # (Auto) Seg Neutrophils % Seg Neuts % (Manual) Lymphocytes % (Manual) Seg Neutrophils # Seg Neutrophils # Man Lymphocytes # (Manual) PT INR ABG pH 7.471 H 7.496 H ABG pO2 47.8 L 91.0 H ABG HCO3 30.6 H ABG O2 Saturation 94.4 L ABG Base Excess 6.2 H ABG Hemoglobin 11.0 L 12.8 L Oxyhemoglobin 93.1 L Sodium 149 H Potassium 3.4 L Chloride Carbon Dioxide BUN Creatinine 0.4 L Glucose POC Glucose Calcium Phosphorus Magnesium Total Creatine Kinase CK-MB (CK-2) Rel Index Troponin T C-Reactive Protein Total Protein Albumin LDL Cholesterol Direct Urine WBC (Auto) Crossmatch 04/04/22 04/04/22 04/04/22 04:18 04:18 05:50 WBC 11.8 H RBC Hgb Hct MCV MCHC RDW Plt Count 132 L Lymph % (Auto) [place] % (Auto) Lymph # (Auto) [place] # (Auto) Seg Neutrophils % Seg Neuts % (Manual) Lymphocytes % (Manual) Seg Neutrophils # Seg Neutrophils # Man Lymphocytes # (Manual) PT INR ABG pH 7.517 H ABG pO2 115.5 H ABG HCO3 29.9 H ABG O2 Saturation ABG Base Excess 6.7 H ABG Hemoglobin 12.3 L Oxyhemoglobin Sodium Potassium 3.5 L Chloride Carbon Dioxide 31 H BUN Creatinine 0.3 L Glucose 153 H POC Glucose Calcium Phosphorus 1.40 L Magnesium 1.50 L Total Creatine Kinase CK-MB (CK-2) Rel Index Troponin T C-Reactive Protein 31.60 H Total Protein Albumin LDL Cholesterol Direct Urine WBC (Auto) Crossmatch 04/05/22 04/05/22 04/05/22 02:50 05:25 11:28 WBC RBC Hgb Hct MCV MCHC RDW Plt Count Lymph % (Auto) [place] % (Auto) Lymph # (Auto) [place] # (Auto) Seg Neutrophils % Seg Neuts % (Manual) Lymphocytes % (Manual) Seg Neutrophils # Seg Neutrophils # Man Lymphocytes # (Manual) PT INR ABG pH 7.455 H ABG pO2 50.7 L ABG HCO3 30.5 H ABG O2 Saturation 89.4 L ABG Base Excess 5.9 H ABG Hemoglobin 11.8 L Oxyhemoglobin 88.2 L Sodium Potassium Chloride Carbon Dioxide 32 H BUN Creatinine 0.2 L Glucose 110 H POC Glucose 124 H Calcium 7.9 L Phosphorus Magnesium Total Creatine Kinase CK-MB (CK-2) Rel Index Troponin T C-Reactive Protein Total Protein Albumin LDL Cholesterol Direct Urine WBC (Auto) Crossmatch 04/05/22 04/05/22 04/06/22 17:45 Unknown 04:00 WBC RBC 3.55 L Hgb 11.1 L 11.5 L Hct 33.2 L 35.1 L MCV MCHC RDW Plt Count 113 L 114 L Lymph % (Auto) [place] % (Auto) Lymph # (Auto) [place] # (Auto) Seg Neutrophils % Seg Neuts % (Manual) Lymphocytes % (Manual) Seg Neutrophils # Seg Neutrophils # Man Lymphocytes # (Manual) PT INR ABG pH ABG pO2 ABG HCO3 ABG O2 Saturation ABG Base Excess ABG Hemoglobin Oxyhemoglobin Sodium Potassium Chloride Carbon Dioxide BUN Creatinine Glucose POC Glucose Calcium Phosphorus Magnesium Total Creatine Kinase CK-MB (CK-2) Rel Index Troponin T C-Reactive Protein Total Protein Albumin LDL Cholesterol Direct Urine WBC (Auto) 8.0 H Crossmatch 04/06/22 04/06/22 04/07/22 04:00 08:30 00:04 WBC RBC Hgb Hct MCV MCHC RDW Plt Count Lymph % (Auto) [place] % (Auto) Lymph # (Auto) [place] # (Auto) Seg Neutrophils % Seg Neuts % (Manual) Lymphocytes % (Manual) Seg Neutrophils # Seg Neutrophils # Man Lymphocytes # (Manual) PT INR ABG pH ABG pO2 60.8 L ABG HCO3 30.5 H ABG O2 Saturation 93.3 L ABG Base Excess 4.9 H ABG Hemoglobin 12.4 L Oxyhemoglobin 92.1 L Sodium Potassium 3.0 L Chloride Carbon Dioxide BUN Creatinine < 0.2 L Glucose 130 H POC Glucose 117 H Calcium 8.1 L Phosphorus Magnesium Total Creatine Kinase CK-MB (CK-2) Rel Index Troponin T C-Reactive Protein Total Protein Albumin LDL Cholesterol Direct Urine WBC (Auto) Crossmatch 04/07/22 04/07/22 04/07/22 03:51 03:51 03:51 WBC 14.6 H RBC 3.57 L Hgb 11.1 L Hct 33.2 L MCV MCHC RDW Plt Count 118 L Lymph % (Auto) 4.3 L [place] % (Auto) 8.8 H Lymph # (Auto) 0.6 L [place] # (Auto) 1.3 H Seg Neutrophils % 86.6 H Seg Neuts % (Manual) Lymphocytes % (Manual) Seg Neutrophils # 12.7 H Seg Neutrophils # Man Lymphocytes # (Manual) PT 15.2 H INR ABG pH ABG pO2 ABG HCO3 ABG O2 Saturation ABG Base Excess ABG Hemoglobin Oxyhemoglobin Sodium 133 L Potassium Chloride 96.0 L Carbon Dioxide 31 H BUN Creatinine 0.2 L Glucose 130 H POC Glucose Calcium 8.0 L Phosphorus Magnesium Total Creatine Kinase CK-MB (CK-2) Rel Index Troponin T C-Reactive Protein Total Protein Albumin LDL Cholesterol Direct Urine WBC (Auto) Crossmatch 04/07/22 04/07/22 04/08/22 04:25 09:10 04:49 WBC 16.1 H RBC 3.54 L Hgb 10.9 L Hct 33.3 L MCV MCHC RDW Plt Count Lymph % (Auto) [place] % (Auto) Lymph # (Auto) [place] # (Auto) Seg Neutrophils % Seg Neuts % (Manual) Lymphocytes % (Manual) Seg Neutrophils # Seg Neutrophils # Man Lymphocytes # (Manual) PT INR ABG pH ABG pO2 71.0 L 63.4 L ABG HCO3 31.5 H 40.0 H ABG O2 Saturation 94.9 L ABG Base Excess 5.9 H 13.6 H ABG Hemoglobin 11.3 L 9.0 L Oxyhemoglobin 93.6 L Sodium Potassium Chloride Carbon Dioxide BUN Creatinine Glucose POC Glucose Calcium Phosphorus Magnesium Total Creatine Kinase CK-MB (CK-2) Rel Index Troponin T C-Reactive Protein Total Protein Albumin LDL Cholesterol Direct Urine WBC (Auto) Crossmatch 04/08/22 04/08/22 04/08/22 04:49 09:53 10:25 WBC RBC Hgb Hct MCV MCHC RDW Plt Count Lymph % (Auto) [place] % (Auto) Lymph # (Auto) [place] # (Auto) Seg Neutrophils % Seg Neuts % (Manual) Lymphocytes % (Manual) Seg Neutrophils # Seg Neutrophils # Man Lymphocytes # (Manual) PT INR ABG pH ABG pO2 ABG HCO3 34.7 H ABG O2 Saturation ABG Base Excess 7.9 H ABG Hemoglobin 11.0 L Oxyhemoglobin Sodium 136 L Potassium Chloride 97.7 L Carbon Dioxide 33 H BUN Creatinine 0.2 L Glucose 155 H POC Glucose Calcium Phosphorus Magnesium Total Creatine Kinase CK-MB (CK-2) Rel Index Troponin T 0.030 H C-Reactive Protein Total Protein Albumin LDL Cholesterol Direct Urine WBC (Auto) Crossmatch 04/08/22 04/08/22 04/08/22 11:19 17:47 18:06 WBC RBC Hgb Hct MCV MCHC RDW Plt Count Lymph % (Auto) [place] % (Auto) Lymph # (Auto) [place] # (Auto) Seg Neutrophils % Seg Neuts % (Manual) Lymphocytes % (Manual) Seg Neutrophils # Seg Neutrophils # Man Lymphocytes # (Manual) PT INR ABG pH ABG pO2 ABG HCO3 ABG O2 Saturation ABG Base Excess ABG Hemoglobin Oxyhemoglobin Sodium Potassium Chloride Carbon Dioxide BUN Creatinine Glucose POC Glucose 121 H Calcium Phosphorus Magnesium Total Creatine Kinase 31 L 46 L CK-MB (CK-2) Rel Index 6.4 H 5.6 H Troponin T 0.030 H 0.031 H C-Reactive Protein Total Protein Albumin LDL Cholesterol Direct Urine WBC (Auto) Crossmatch 04/09/22 04/09/22 04/09/22 04:35 04:35 11:24 WBC 11.5 H RBC 3.16 L Hgb 9.9 L Hct 29.4 L MCV MCHC RDW Plt Count 131 L Lymph % (Auto) [place] % (Auto) Lymph # (Auto) [place] # (Auto) Seg Neutrophils % Seg Neuts % (Manual) Lymphocytes % (Manual) Seg Neutrophils # Seg Neutrophils # Man Lymphocytes # (Manual) PT INR ABG pH ABG pO2 ABG HCO3 ABG O2 Saturation ABG Base Excess ABG Hemoglobin Oxyhemoglobin Sodium Potassium Chloride 97.1 L Carbon Dioxide 35 H BUN Creatinine < 0.2 L Glucose 145 H POC Glucose 147 H Calcium Phosphorus Magnesium Total Creatine Kinase CK-MB (CK-2) Rel Index Troponin T C-Reactive Protein Total Protein Albumin LDL Cholesterol Direct Urine WBC (Auto) Crossmatch 04/09/22 04/09/22 04/09/22 13:00 17:32 23:48 WBC RBC Hgb Hct MCV MCHC RDW Plt Count Lymph % (Auto) [place] % (Auto) Lymph # (Auto) [place] # (Auto) Seg Neutrophils % Seg Neuts % (Manual) Lymphocytes % (Manual) Seg Neutrophils # Seg Neutrophils # Man Lymphocytes # (Manual) PT INR ABG pH ABG pO2 66.6 L ABG HCO3 38.2 H ABG O2 Saturation 94.4 L ABG Base Excess 10.7 H ABG Hemoglobin 10.7 L Oxyhemoglobin 92.8 L Sodium Potassium Chloride Carbon Dioxide BUN Creatinine Glucose POC Glucose 143 H 114 H Calcium Phosphorus Magnesium Total Creatine Kinase CK-MB (CK-2) Rel Index Troponin T C-Reactive Protein Total Protein Albumin LDL Cholesterol Direct Urine WBC (Auto) Crossmatch 04/10/22 04/10/22 04/10/22 04:48 04:48 05:34 WBC RBC 2.91 L Hgb 9.1 L Hct 27.7 L MCV 95 H MCHC RDW Plt Count Lymph % (Auto) [place] % (Auto) Lymph # (Auto) [place] # (Auto) Seg Neutrophils % Seg Neuts % (Manual) Lymphocytes % (Manual) Seg Neutrophils # Seg Neutrophils # Man Lymphocytes # (Manual) PT INR ABG pH ABG pO2 ABG HCO3 ABG O2 Saturation ABG Base Excess ABG Hemoglobin Oxyhemoglobin Sodium Potassium Chloride 95.7 L Carbon Dioxide 38 H BUN Creatinine < 0.2 L Glucose 118 H POC Glucose 127 H Calcium Phosphorus Magnesium Total Creatine Kinase CK-MB (CK-2) Rel Index Troponin T C-Reactive Protein Total Protein Albumin LDL Cholesterol Direct Urine WBC (Auto) Crossmatch 04/10/22 04/11/22 04/11/22 23:10 04:15 04:15 WBC 17.2 H RBC 2.98 L Hgb 9.2 L Hct 27.9 L MCV MCHC RDW Plt Count Lymph % (Auto) [place] % (Auto) Lymph # (Auto) [place] # (Auto) Seg Neutrophils % Seg Neuts % (Manual) Lymphocytes % (Manual) Seg Neutrophils # Seg Neutrophils # Man Lymphocytes # (Manual) PT INR ABG pH ABG pO2 ABG HCO3 ABG O2 Saturation ABG Base Excess ABG Hemoglobin Oxyhemoglobin Sodium Potassium Chloride 96.1 L Carbon Dioxide 35 H BUN Creatinine < 0.2 L Glucose 138 H POC Glucose 106 H Calcium 8.3 L Phosphorus Magnesium Total Creatine Kinase CK-MB (CK-2) Rel Index Troponin T C-Reactive Protein Total Protein Albumin LDL Cholesterol Direct Urine WBC (Auto) Crossmatch 06/03/2804/11/22 04/11/22 05:31 13:18 16:20 WBC RBC Hgb Hct MCV MCHC RDW Plt Count Lymph % (Auto) [place] % (Auto) Lymph # (Auto) [place] # (Auto) Seg Neutrophils % Seg Neuts % (Manual) Lymphocytes % (Manual) Seg Neutrophils # Seg Neutrophils # Man Lymphocytes # (Manual) PT INR ABG pH ABG pO2 57.8 L ABG HCO3 40.5 H ABG O2 Saturation 90.6 L ABG Base Excess 12.6 H ABG Hemoglobin 10.5 L Oxyhemoglobin 89.0 L Sodium Potassium Chloride Carbon Dioxide BUN Creatinine Glucose POC Glucose 129 H 132 H Calcium Phosphorus Magnesium Total Creatine Kinase CK-MB (CK-2) Rel Index Troponin T C-Reactive Protein Total Protein Albumin LDL Cholesterol Direct Urine WBC (Auto) Crossmatch 04/11/22 04/11/22 04/12/22 17:29 23:17 04:00 WBC 17.4 H RBC 2.96 L Hgb 9.0 L Hct 28.0 L MCV 95 H MCHC RDW Plt Count Lymph % (Auto) [place] % (Auto) Lymph # (Auto) [place] # (Auto) Seg Neutrophils % Seg Neuts % (Manual) Lymphocytes % (Manual) Seg Neutrophils # Seg Neutrophils # Man Lymphocytes # (Manual) PT INR ABG pH ABG pO2 ABG HCO3 ABG O2 Saturation ABG Base Excess ABG Hemoglobin Oxyhemoglobin Sodium Potassium Chloride Carbon Dioxide BUN Creatinine Glucose POC Glucose 125 H 151 H Calcium Phosphorus Magnesium Total Creatine Kinase CK-MB (CK-2) Rel Index Troponin T C-Reactive Protein Total Protein Albumin LDL Cholesterol Direct Urine WBC (Auto) Crossmatch 04/12/22 04/12/22 04/12/22 04:00 17:03 23:39 WBC RBC Hgb Hct MCV MCHC RDW Plt Count Lymph % (Auto) [place] % (Auto) Lymph # (Auto) [place] # (Auto) Seg Neutrophils % Seg Neuts % (Manual) Lymphocytes % (Manual) Seg Neutrophils # Seg Neutrophils # Man Lymphocytes # (Manual) PT INR ABG pH ABG pO2 ABG HCO3 ABG O2 Saturation ABG Base Excess ABG Hemoglobin Oxyhemoglobin Sodium Potassium Chloride 97.4 L Carbon Dioxide 37 H BUN Creatinine < 0.2 L Glucose 127 H POC Glucose 106 H 107 H Calcium Phosphorus Magnesium Total Creatine Kinase CK-MB (CK-2) Rel Index Troponin T C-Reactive Protein Total Protein Albumin LDL Cholesterol Direct Urine WBC (Auto) Crossmatch 04/13/22 04/13/22 04/13/22 04:30 04:30 17:39 WBC 14.1 H RBC 2.66 L Hgb 8.4 L Hct 25.5 L MCV 96 H MCHC RDW Plt Count Lymph % (Auto) [place] % (Auto) Lymph # (Auto) [place] # (Auto) Seg Neutrophils % Seg Neuts % (Manual) Lymphocytes % (Manual) Seg Neutrophils # Seg Neutrophils # Man Lymphocytes # (Manual) PT INR ABG pH ABG pO2 ABG HCO3 ABG O2 Saturation ABG Base Excess ABG Hemoglobin Oxyhemoglobin Sodium Potassium Chloride 93.9 L Carbon Dioxide 39 H BUN Creatinine < 0.2 L Glucose POC Glucose 134 H Calcium Phosphorus 1.90 L Magnesium Total Creatine Kinase CK-MB (CK-2) Rel Index Troponin T C-Reactive Protein Total Protein Albumin LDL Cholesterol Direct Urine WBC (Auto) Crossmatch 04/14/22 04/14/22 04/14/22 05:03 05:03 09:10 WBC 15.6 H RBC 3.02 L Hgb 9.3 L Hct 28.8 L MCV 95 H MCHC RDW Plt Count Lymph % (Auto) [place] % (Auto) Lymph # (Auto) [place] # (Auto) Seg Neutrophils % Seg Neuts % (Manual) Lymphocytes % (Manual) Seg Neutrophils # Seg Neutrophils # Man Lymphocytes # (Manual) PT INR ABG pH ABG pO2 66.9 L ABG HCO3 44.5 H ABG O2 Saturation ABG Base Excess 17.2 H ABG Hemoglobin 8.1 L Oxyhemoglobin 94.8 L Sodium Potassium Chloride 93.8 L Carbon Dioxide 42 H* BUN Creatinine < 0.2 L Glucose 117 H POC Glucose Calcium Phosphorus Magnesium Total Creatine Kinase CK-MB (CK-2) Rel Index Troponin T C-Reactive Protein Total Protein Albumin LDL Cholesterol Direct Urine WBC (Auto) Crossmatch 04/15/22 04/15/22 04/16/22 04:44 04:44 04:16 WBC 13.0 H 12.6 H RBC 3.19 L 3.09 L Hgb 9.6 L 9.5 L Hct 30.2 L 29.1 L MCV 95 H MCHC RDW Plt Count 456 H Lymph % (Auto) [place] % (Auto) Lymph # (Auto) [place] # (Auto) Seg Neutrophils % Seg Neuts % (Manual) Lymphocytes % (Manual) Seg Neutrophils # Seg Neutrophils # Man Lymphocytes # (Manual) PT INR ABG pH ABG pO2 ABG HCO3 ABG O2 Saturation ABG Base Excess ABG Hemoglobin Oxyhemoglobin Sodium Potassium Chloride 95.5 L Carbon Dioxide 37 H BUN Creatinine < 0.2 L Glucose POC Glucose Calcium Phosphorus Magnesium Total Creatine Kinase CK-MB (CK-2) Rel Index Troponin T C-Reactive Protein Total Protein Albumin LDL Cholesterol Direct Urine WBC (Auto) Crossmatch 04/16/22 04/16/22 04/16/22 04:16 05:00 14:00 WBC RBC Hgb Hct MCV MCHC RDW Plt Count Lymph % (Auto) [place] % (Auto) Lymph # (Auto) [place] # (Auto) Seg Neutrophils % Seg Neuts % (Manual) Lymphocytes % (Manual) Seg Neutrophils # Seg Neutrophils # Man Lymphocytes # (Manual) PT INR ABG pH 7.324 L ABG pO2 55.6 L ABG HCO3 45.3 H ABG O2 Saturation 87.1 L ABG Base Excess 16.6 H ABG Hemoglobin 8.6 L Oxyhemoglobin 85.7 L Sodium Potassium Chloride 97.6 L Carbon Dioxide 36 H BUN Creatinine < 0.2 L Glucose 109 H POC Glucose 120 H Calcium Phosphorus Magnesium Total Creatine Kinase CK-MB (CK-2) Rel Index Troponin T C-Reactive Protein Total Protein Albumin LDL Cholesterol Direct Urine WBC (Auto) Crossmatch 04/17/22 04/17/22 04/17/22 04:36 04:36 04:57 WBC 14.4 H RBC 3.08 L Hgb 9.4 L Hct 29.0 L MCV MCHC RDW Plt Count Lymph % (Auto) [place] % (Auto) Lymph # (Auto) [place] # (Auto) Seg Neutrophils % Seg Neuts % (Manual) Lymphocytes % (Manual) Seg Neutrophils # Seg Neutrophils # Man Lymphocytes # (Manual) PT INR ABG pH ABG pO2 ABG HCO3 ABG O2 Saturation ABG Base Excess ABG Hemoglobin Oxyhemoglobin Sodium Potassium Chloride 95.9 L Carbon Dioxide 39 H BUN Creatinine < 0.2 L Glucose 140 H POC Glucose 137 H Calcium 8.3 L Phosphorus Magnesium Total Creatine Kinase CK-MB (CK-2) Rel Index Troponin T C-Reactive Protein Total Protein Albumin LDL Cholesterol Direct Urine WBC (Auto) Crossmatch 04/17/22 04/17/22 04/18/22 09:15 18:01 04:20 WBC 11.2 H RBC 3.00 L Hgb 9.3 L Hct 28.6 L MCV 95 H MCHC RDW Plt Count Lymph % (Auto) [place] % (Auto) Lymph # (Auto) [place] # (Auto) Seg Neutrophils % Seg Neuts % (Manual) Lymphocytes % (Manual) Seg Neutrophils # Seg Neutrophils # Man Lymphocytes # (Manual) PT INR ABG pH 7.345 L ABG pO2 ABG HCO3 48.2 H ABG O2 Saturation ABG Base Excess 19.2 H ABG Hemoglobin 9.7 L Oxyhemoglobin Sodium Potassium Chloride Carbon Dioxide BUN Creatinine Glucose POC Glucose 129 H Calcium Phosphorus Magnesium Total Creatine Kinase CK-MB (CK-2) Rel Index Troponin T C-Reactive Protein Total Protein Albumin LDL Cholesterol Direct Urine WBC (Auto) Crossmatch 04/18/22 04/18/22 04/18/22 04:20 17:35 23:50 WBC RBC Hgb Hct MCV MCHC RDW Plt Count Lymph % (Auto) [place] % (Auto) Lymph # (Auto) [place] # (Auto) Seg Neutrophils % Seg Neuts % (Manual) Lymphocytes % (Manual) Seg Neutrophils # Seg Neutrophils # Man Lymphocytes # (Manual) PT INR ABG pH ABG pO2 ABG HCO3 ABG O2 Saturation ABG Base Excess ABG Hemoglobin Oxyhemoglobin Sodium Potassium Chloride 96.8 L Carbon Dioxide 43 H* BUN 22 H Creatinine < 0.2 L Glucose 137 H POC Glucose 128 H 123 H Calcium 8.2 L Phosphorus Magnesium Total Creatine Kinase CK-MB (CK-2) Rel Index Troponin T C-Reactive Protein Total Protein Albumin LDL Cholesterol Direct Urine WBC (Auto) Crossmatch 04/19/22 04/19/22 04/19/22 04:08 04:08 08:50 WBC 16.8 H RBC 3.18 L Hgb 9.8 L Hct 30.1 L MCV 95 H MCHC RDW Plt Count Lymph % (Auto) [place] % (Auto) Lymph # (Auto) [place] # (Auto) Seg Neutrophils % Seg Neuts % (Manual) Lymphocytes % (Manual) Seg Neutrophils # Seg Neutrophils # Man Lymphocytes # (Manual) PT INR ABG pH ABG pO2 56.0 L ABG HCO3 47.1 H ABG O2 Saturation 93.3 L ABG Base Excess 20.1 H ABG Hemoglobin 8.0 L Oxyhemoglobin 91.8 L Sodium Potassium Chloride 96.2 L Carbon Dioxide 40 H BUN 24 H Creatinine < 0.2 L Glucose 125 H POC Glucose Calcium 8.3 L Phosphorus Magnesium Total Creatine Kinase CK-MB (CK-2) Rel Index Troponin T C-Reactive Protein Total Protein Albumin LDL Cholesterol Direct Urine WBC (Auto) Crossmatch 04/19/22 04/20/22 04/20/22 12:02 00:40 04:49 WBC 14.7 H RBC 3.36 L Hgb 10.3 L Hct 32.0 L MCV 95 H MCHC RDW Plt Count Lymph % (Auto) [place] % (Auto) Lymph # (Auto) [place] # (Auto) Seg Neutrophils % Seg Neuts % (Manual) Lymphocytes % (Manual) Seg Neutrophils # Seg Neutrophils # Man Lymphocytes # (Manual) PT INR ABG pH ABG pO2 ABG HCO3 ABG O2 Saturation ABG Base Excess ABG Hemoglobin Oxyhemoglobin Sodium Potassium Chloride Carbon Dioxide BUN Creatinine Glucose POC Glucose 124 H 140 H Calcium Phosphorus Magnesium Total Creatine Kinase CK-MB (CK-2) Rel Index Troponin T C-Reactive Protein Total Protein Albumin LDL Cholesterol Direct Urine WBC (Auto) Crossmatch 04/20/22 04/20/22 04/21/22 05:36 11:40 04:05 WBC RBC Hgb Hct MCV MCHC RDW Plt Count Lymph % (Auto) [place] % (Auto) Lymph # (Auto) [place] # (Auto) Seg Neutrophils % Seg Neuts % (Manual) Lymphocytes % (Manual) Seg Neutrophils # Seg Neutrophils # Man Lymphocytes # (Manual) PT INR ABG pH ABG pO2 ABG HCO3 ABG O2 Saturation ABG Base Excess ABG Hemoglobin Oxyhemoglobin Sodium Potassium Chloride 93.4 L Carbon Dioxide 40 H BUN 25 H Creatinine < 0.2 L Glucose 122 H POC Glucose 125 H 128 H Calcium Phosphorus Magnesium Total Creatine Kinase CK-MB (CK-2) Rel Index Troponin T C-Reactive Protein Total Protein Albumin LDL Cholesterol Direct Urine WBC (Auto) Crossmatch 04/21/22 04/22/22 04/22/22 10:31 05:03 05:03 WBC 12.6 H 12.7 H RBC 2.83 L 2.96 L Hgb 8.6 L 9.0 L Hct 26.9 L 28.0 L MCV 95 H 95 H MCHC RDW Plt Count Lymph % (Auto) [place] % (Auto) Lymph # (Auto) [place] # (Auto) Seg Neutrophils % Seg Neuts % (Manual) Lymphocytes % (Manual) Seg Neutrophils # Seg Neutrophils # Man Lymphocytes # (Manual) PT INR ABG pH ABG pO2 ABG HCO3 ABG O2 Saturation ABG Base Excess ABG Hemoglobin Oxyhemoglobin Sodium Potassium Chloride 93.9 L Carbon Dioxide 43 H* BUN 23 H Creatinine < 0.2 L Glucose 137 H POC Glucose Calcium Phosphorus Magnesium Total Creatine Kinase CK-MB (CK-2) Rel Index Troponin T C-Reactive Protein Total Protein Albumin LDL Cholesterol Direct Urine WBC (Auto) Crossmatch 04/22/22 04/23/22 04/24/22 08:34 09:40 04:29 WBC 14.4 H RBC 2.74 L Hgb 8.4 L Hct 25.7 L MCV MCHC RDW Plt Count Lymph % (Auto) [place] % (Auto) Lymph # (Auto) [place] # (Auto) Seg Neutrophils % Seg Neuts % (Manual) Lymphocytes % (Manual) Seg Neutrophils # Seg Neutrophils # Man Lymphocytes # (Manual) PT INR ABG pH ABG pO2 54.1 L 56.8 L ABG HCO3 48.5 H 49.0 H ABG O2 Saturation 92.1 L 90.9 L ABG Base Excess 20.9 H 20.8 H ABG Hemoglobin 9.0 L 8.4 L Oxyhemoglobin 90.6 L 89.5 L Sodium Potassium Chloride Carbon Dioxide BUN Creatinine Glucose POC Glucose Calcium Phosphorus Magnesium Total Creatine Kinase CK-MB (CK-2) Rel Index Troponin T C-Reactive Protein Total Protein Albumin LDL Cholesterol Direct Urine WBC (Auto) Crossmatch 04/24/22 04/25/22 04/26/22 04:29 09:00 04:22 WBC RBC 2.88 L Hgb 8.9 L Hct 26.8 L MCV MCHC RDW Plt Count Lymph % (Auto) [place] % (Auto) Lymph # (Auto) [place] # (Auto) Seg Neutrophils % Seg Neuts % (Manual) Lymphocytes % (Manual) Seg Neutrophils # Seg Neutrophils # Man Lymphocytes # (Manual) PT INR ABG pH 7.457 H ABG pO2 66.7 L ABG HCO3 42.6 H ABG O2 Saturation ABG Base Excess 15.3 H ABG Hemoglobin 8.8 L Oxyhemoglobin 94.1 L Sodium Potassium Chloride 90.7 L Carbon Dioxide 40 H BUN Creatinine < 0.2 L Glucose 133 H POC Glucose Calcium Phosphorus Magnesium Total Creatine Kinase CK-MB (CK-2) Rel Index Troponin T C-Reactive Protein Total Protein Albumin LDL Cholesterol Direct Urine WBC (Auto) Crossmatch 04/26/22 04/29/22 04/29/22 04:22 04:18 04:18 WBC 13.5 H RBC 2.96 L Hgb 8.9 L Hct 27.7 L MCV MCHC RDW Plt Count Lymph % (Auto) [place] % (Auto) Lymph # (Auto) [place] # (Auto) Seg Neutrophils % Seg Neuts % (Manual) Lymphocytes % (Manual) Seg Neutrophils # Seg Neutrophils # Man Lymphocytes # (Manual) PT INR ABG pH ABG pO2 ABG HCO3 ABG O2 Saturation ABG Base Excess ABG Hemoglobin Oxyhemoglobin Sodium Potassium Chloride 93.2 L 95.2 L Carbon Dioxide 37 H 38 H BUN Creatinine < 0.2 L < 0.2 L Glucose 114 H 116 H POC Glucose Calcium Phosphorus Magnesium Total Creatine Kinase CK-MB (CK-2) Rel Index Troponin T C-Reactive Protein Total Protein Albumin LDL Cholesterol Direct Urine WBC (Auto) Crossmatch 05/02/22 05/03/22 05/03/22 04:29 04:02 04:02 WBC 12.9 H 12.3 H RBC 2.82 L 2.83 L Hgb 8.4 L 8.4 L Hct 26.2 L 26.0 L MCV MCHC RDW Plt Count Lymph % (Auto) [place] % (Auto) Lymph # (Auto) [place] # (Auto) Seg Neutrophils % Seg Neuts % (Manual) Lymphocytes % (Manual) Seg Neutrophils # Seg Neutrophils # Man Lymphocytes # (Manual) PT INR ABG pH ABG pO2 ABG HCO3 ABG O2 Saturation ABG Base Excess ABG Hemoglobin Oxyhemoglobin Sodium 134 L Potassium Chloride 90.5 L Carbon Dioxide 38 H BUN 21 H Creatinine < 0.2 L Glucose 126 H POC Glucose Calcium Phosphorus Magnesium Total Creatine Kinase CK-MB (CK-2) Rel Index Troponin T C-Reactive Protein Total Protein Albumin LDL Cholesterol Direct Urine WBC (Auto) Crossmatch 05/03/22 05/03/22 05/04/22 12:02 17:42 09:36 WBC RBC Hgb Hct MCV MCHC RDW Plt Count Lymph % (Auto) [place] % (Auto) Lymph # (Auto) [place] # (Auto) Seg Neutrophils % Seg Neuts % (Manual) Lymphocytes % (Manual) Seg Neutrophils # Seg Neutrophils # Man Lymphocytes # (Manual) PT INR ABG pH ABG pO2 55.4 L ABG HCO3 43.7 H ABG O2 Saturation 87.4 L ABG Base Excess 16.1 H ABG Hemoglobin 9.1 L Oxyhemoglobin 85.7 L Sodium Potassium Chloride Carbon Dioxide BUN Creatinine Glucose POC Glucose 139 H 131 H Calcium Phosphorus Magnesium Total Creatine Kinase CK-MB (CK-2) Rel Index Troponin T C-Reactive Protein Total Protein Albumin LDL Cholesterol Direct Urine WBC (Auto) Crossmatch 05/04/22 05/04/22 05/05/22 17:08 23:10 04:23 WBC 14.4 H RBC 2.75 L Hgb 8.2 L Hct 25.2 L MCV MCHC RDW Plt Count Lymph % (Auto) [place] % (Auto) Lymph # (Auto) [place] # (Auto) Seg Neutrophils % Seg Neuts % (Manual) Lymphocytes % (Manual) Seg Neutrophils # Seg Neutrophils # Man Lymphocytes # (Manual) PT INR ABG pH ABG pO2 ABG HCO3 ABG O2 Saturation ABG Base Excess ABG Hemoglobin Oxyhemoglobin Sodium Potassium Chloride Carbon Dioxide BUN Creatinine Glucose POC Glucose 124 H 115 H Calcium Phosphorus Magnesium Total Creatine Kinase CK-MB (CK-2) Rel Index Troponin T C-Reactive Protein Total Protein Albumin LDL Cholesterol Direct Urine WBC (Auto) Crossmatch 05/05/22 05/05/22 05/06/22 04:23 21:39 05:13 WBC RBC Hgb Hct MCV MCHC RDW Plt Count Lymph % (Auto) [place] % (Auto) Lymph # (Auto) [place] # (Auto) Seg Neutrophils % Seg Neuts % (Manual) Lymphocytes % (Manual) Seg Neutrophils # Seg Neutrophils # Man Lymphocytes # (Manual) PT INR ABG pH ABG pO2 ABG HCO3 ABG O2 Saturation ABG Base Excess ABG Hemoglobin Oxyhemoglobin Sodium Potassium Chloride 91.3 L Carbon Dioxide 38 H BUN 23 H Creatinine < 0.2 L Glucose 128 H POC Glucose 141 H 136 H Calcium Phosphorus Magnesium Total Creatine Kinase CK-MB (CK-2) Rel Index Troponin T C-Reactive Protein Total Protein Albumin LDL Cholesterol Direct Urine WBC (Auto) Crossmatch 05/07/22 05/07/2222 05:29 22:15 05:48 WBC RBC Hgb Hct MCV MCHC RDW Plt Count Lymph % (Auto) [place] % (Auto) Lymph # (Auto) [place] # (Auto) Seg Neutrophils % Seg Neuts % (Manual) Lymphocytes % (Manual) Seg Neutrophils # Seg Neutrophils # Man Lymphocytes # (Manual) PT INR ABG pH ABG pO2 ABG HCO3 ABG O2 Saturation ABG Base Excess ABG Hemoglobin Oxyhemoglobin Sodium Potassium Chloride Carbon Dioxide BUN Creatinine Glucose POC Glucose 125 H 142 H 122 H Calcium Phosphorus Magnesium Total Creatine Kinase CK-MB (CK-2) Rel Index Troponin T C-Reactive Protein Total Protein Albumin LDL Cholesterol Direct Urine WBC (Auto) Crossmatch 05/08/22 05/08/22 05/09/22 14:04 21:48 15:15 WBC RBC 2.61 L Hgb 7.7 L Hct 23.2 L MCV MCHC RDW Plt Count Lymph % (Auto) 8.1 L [place] % (Auto) Lymph # (Auto) 0.9 L [place] # (Auto) Seg Neutrophils % 86.1 H Seg Neuts % (Manual) Lymphocytes % (Manual) Seg Neutrophils # 9.2 H Seg Neutrophils # Man Lymphocytes # (Manual) PT INR ABG pH ABG pO2 ABG HCO3 ABG O2 Saturation ABG Base Excess ABG Hemoglobin Oxyhemoglobin Sodium Potassium Chloride Carbon Dioxide BUN Creatinine Glucose POC Glucose 112 H 107 H Calcium Phosphorus Magnesium Total Creatine Kinase CK-MB (CK-2) Rel Index Troponin T C-Reactive Protein Total Protein Albumin LDL Cholesterol Direct Urine WBC (Auto) Crossmatch 05/09/22 05/09/22 05/09/22 15:15 15:39 21:15 WBC RBC Hgb Hct MCV MCHC RDW Plt Count Lymph % (Auto) [place] % (Auto) Lymph # (Auto) [place] # (Auto) Seg Neutrophils % Seg Neuts % (Manual) Lymphocytes % (Manual) Seg Neutrophils # Seg Neutrophils # Man Lymphocytes # (Manual) PT INR ABG pH ABG pO2 ABG HCO3 ABG O2 Saturation ABG Base Excess ABG Hemoglobin Oxyhemoglobin Sodium Potassium Chloride 92.9 L Carbon Dioxide 40 H BUN Creatinine < 0.2 L Glucose 141 H POC Glucose 118 H 112 H Calcium Phosphorus Magnesium Total Creatine Kinase CK-MB (CK-2) Rel Index Troponin T C-Reactive Protein Total Protein Albumin LDL Cholesterol Direct Urine WBC (Auto) Crossmatch 05/10/22 05/12/22 05/13/22 15:14 00:25 04:02 WBC 13.3 H RBC 3.14 L Hgb 8.7 L Hct 28.0 L MCV MCHC 31 L RDW Plt Count Lymph % (Auto) [place] % (Auto) Lymph # (Auto) [place] # (Auto) Seg Neutrophils % Seg Neuts % (Manual) Lymphocytes % (Manual) Seg Neutrophils # Seg Neutrophils # Man Lymphocytes # (Manual) PT INR ABG pH ABG pO2 ABG HCO3 ABG O2 Saturation ABG Base Excess ABG Hemoglobin Oxyhemoglobin Sodium Potassium Chloride Carbon Dioxide BUN Creatinine Glucose POC Glucose 113 H 158 H Calcium Phosphorus Magnesium Total Creatine Kinase CK-MB (CK-2) Rel Index Troponin T C-Reactive Protein Total Protein Albumin LDL Cholesterol Direct Urine WBC (Auto) Crossmatch 05/13/22 05/13/22 05/13/22 04:02 06:32 13:09 WBC RBC Hgb Hct MCV MCHC RDW Plt Count Lymph % (Auto) [place] % (Auto) Lymph # (Auto) [place] # (Auto) Seg Neutrophils % Seg Neuts % (Manual) Lymphocytes % (Manual) Seg Neutrophils # Seg Neutrophils # Man Lymphocytes # (Manual) PT INR ABG pH ABG pO2 ABG HCO3 ABG O2 Saturation ABG Base Excess ABG Hemoglobin Oxyhemoglobin Sodium 135 L Potassium Chloride 91.1 L Carbon Dioxide 40 H BUN 23 H Creatinine < 0.2 L Glucose 139 H POC Glucose 129 H 117 H Calcium Phosphorus Magnesium Total Creatine Kinase CK-MB (CK-2) Rel Index Troponin T C-Reactive Protein Total Protein Albumin LDL Cholesterol Direct Urine WBC (Auto) Crossmatch 05/13/22 05/14/22 05/14/22 21:28 05:44 07:35 WBC RBC Hgb Hct MCV MCHC RDW Plt Count Lymph % (Auto) [place] % (Auto) Lymph # (Auto) [place] # (Auto) Seg Neutrophils % Seg Neuts % (Manual) Lymphocytes % (Manual) Seg Neutrophils # Seg Neutrophils # Man Lymphocytes # (Manual) PT INR ABG pH ABG pO2 ABG HCO3 ABG O2 Saturation ABG Base Excess ABG Hemoglobin Oxyhemoglobin Sodium Potassium Chloride Carbon Dioxide BUN Creatinine Glucose POC Glucose 109 H 130 H 125 H Calcium Phosphorus Magnesium Total Creatine Kinase CK-MB (CK-2) Rel Index Troponin T C-Reactive Protein Total Protein Albumin LDL Cholesterol Direct Urine WBC (Auto) Crossmatch 05/14/22 05/14/22 05/15/22 16:26 23:44 10:44 WBC 13.9 H RBC 2.71 L Hgb 7.5 L Hct 23.5 L MCV MCHC RDW 15.9 H Plt Count Lymph % (Auto) [place] % (Auto) Lymph # (Auto) [place] # (Auto) Seg Neutrophils % Seg Neuts % (Manual) Lymphocytes % (Manual) Seg Neutrophils # Seg Neutrophils # Man Lymphocytes # (Manual) PT INR ABG pH ABG pO2 ABG HCO3 ABG O2 Saturation ABG Base Excess ABG Hemoglobin Oxyhemoglobin Sodium Potassium Chloride Carbon Dioxide BUN Creatinine Glucose POC Glucose 112 H 189 H Calcium Phosphorus Magnesium Total Creatine Kinase CK-MB (CK-2) Rel Index Troponin T C-Reactive Protein Total Protein Albumin LDL Cholesterol Direct Urine WBC (Auto) Crossmatch 05/15/22 05/16/22 05/16/22 10:44 14:50 21:36 WBC RBC Hgb Hct MCV MCHC RDW Plt Count Lymph % (Auto) [place] % (Auto) Lymph # (Auto) [place] # (Auto) Seg Neutrophils % Seg Neuts % (Manual) Lymphocytes % (Manual) Seg Neutrophils # Seg Neutrophils # Man Lymphocytes # (Manual) PT INR ABG pH ABG pO2 ABG HCO3 ABG O2 Saturation ABG Base Excess ABG Hemoglobin Oxyhemoglobin Sodium 135 L Potassium 3.3 L D Chloride 91.5 L Carbon Dioxide 33 H D BUN 21 H Creatinine < 0.2 L Glucose 118 H POC Glucose 133 H 123 H Calcium 7.9 L Phosphorus Magnesium Total Creatine Kinase CK-MB (CK-2) Rel Index Troponin T C-Reactive Protein Total Protein Albumin LDL Cholesterol Direct Urine WBC (Auto) Crossmatch 05/17/22 05/17/22 05/17/22 03:41 03:41 05:51 WBC 16.2 H RBC 2.53 L Hgb 7.0 L Hct 21.5 L MCV MCHC RDW 16.2 H Plt Count Lymph % (Auto) [place] % (Auto) Lymph # (Auto) [place] # (Auto) Seg Neutrophils % Seg Neuts % (Manual) 96.0 H Lymphocytes % (Manual) 1.0 L Seg Neutrophils # Seg Neutrophils # Man 15.6 H Lymphocytes # (Manual) 0.2 L PT INR ABG pH ABG pO2 ABG HCO3 ABG O2 Saturation ABG Base Excess ABG Hemoglobin Oxyhemoglobin Sodium 132 L Potassium Chloride 95.0 L Carbon Dioxide BUN 22 H Creatinine < 0.2 L Glucose 122 H POC Glucose 123 H Calcium Phosphorus Magnesium Total Creatine Kinase CK-MB (CK-2) Rel Index Troponin T C-Reactive Protein 31.20 H Total Protein Albumin LDL Cholesterol Direct Urine WBC (Auto) Crossmatch 05/17/22 05/17/22 05/18/22 07:53 21:03 05:41 WBC 15.0 H RBC 2.58 L Hgb 7.1 L Hct 22.3 L MCV MCHC RDW 16.1 H Plt Count Lymph % (Auto) [place] % (Auto) Lymph # (Auto) [place] # (Auto) Seg Neutrophils % Seg Neuts % (Manual) Lymphocytes % (Manual) Seg Neutrophils # Seg Neutrophils # Man Lymphocytes # (Manual) PT INR ABG pH ABG pO2 ABG HCO3 ABG O2 Saturation ABG Base Excess ABG Hemoglobin Oxyhemoglobin Sodium Potassium Chloride Carbon Dioxide BUN Creatinine Glucose POC Glucose 106 H 123 H Calcium Phosphorus Magnesium Total Creatine Kinase CK-MB (CK-2) Rel Index Troponin T C-Reactive Protein Total Protein Albumin LDL Cholesterol Direct Urine WBC (Auto) Crossmatch 05/18/22 05/18/22 05:41 13:56 WBC RBC Hgb Hct MCV MCHC RDW Plt Count Lymph % (Auto) [place] % (Auto) Lymph # (Auto) [place] # (Auto) Seg Neutrophils % Seg Neuts % (Manual) Lymphocytes % (Manual) Seg Neutrophils # Seg Neutrophils # Man Lymphocytes # (Manual) PT INR ABG pH ABG pO2 ABG HCO3 ABG O2 Saturation ABG Base Excess ABG Hemoglobin Oxyhemoglobin Sodium Potassium Chloride 97.9 L Carbon Dioxide BUN 23 H Creatinine < 0.2 L Glucose 128 H POC Glucose Calcium Phosphorus Magnesium Total Creatine Kinase CK-MB (CK-2) Rel Index Troponin T C-Reactive Protein Total Protein Albumin LDL Cholesterol Direct Urine WBC (Auto) Crossmatch See Detail Allied health notes reviewed: RT
[2022-05-18] MEDS: DOCUSATE SODIUM 100 MG/10 ML ORAL LIQD FEEDTUBE SCH (22:13)
[2022-05-18] MEDS: SENNOSIDES ORAL LIQD 8.8 MG/5 ML ORAL LIQD FEEDTUBE SCH (22:14)
[2022-05-18 23:41] LABS: Hematocrit 21.5 % (35.5-45.6); Hemoglobin 7.2 gm/dl (11.8-15.2); Mean Corpuscular HGB Conc 34 % (32-34); Mean Corpuscular Volume 85 fl (84-94); Platelet Count 321 K/mm3 (140-440); Red Blood Count 2.53 M/mm3 (3.65-5.03); Red Cell Distribution Width 16.4 % (13.2-15.2)
[2022-05-19] MEDS: INSULIN LISPRO 100 UNIT/ML SUB-Q SCH ×3 (00:12→16:52)
[2022-05-19] MEDS: METOPROLOL TARTRATE 25 MG TAB FEEDTUBE SCH ×3 (00:12→16:51)
[2022-05-19] MEDS: HEPARIN 5,000 UNIT/1 ML VIAL SUB-Q SCH ×3 (05:18→21:17)
[2022-05-19] MEDS: MEROPENEM/NS 500 MG/50 ML 500 MG/50 ML BAG IV SCH ×3 (05:18→22:30)
[2022-05-19] MEDS: fentaNYL 100 MCG/2 ML INJ IV PRN ×2 (05:58→21:24)
[2022-05-19 06:46] LABS: ABG Base Excess 4.9 mmol/L (-2.0-3.0); ABG HCO3 30.3 mmol/L (20.0-26.0); ABG Methemoglobin 0.4 % (0.0-1.5); ABG Oxygen Saturation 97.6 % (95.0-99.0); ABG PCO2 51.9 mm Hg; ABG PH 7.385 pH Units (7.350-7.450); ABG PO2 70.5 mm Hg (80.0-90.0)
--- NOTE | 2022-05-19 08:51 | Electrocardiograph Report ---
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
[2022-05-19] MEDS: ACETYLCYSTEINE 20% 200 MG/1 ML *FOR INHALATION USE INHALATION SCH ×2 (08:59→20:53)
[2022-05-19] MEDS: ALBUTEROL 2.5 MG/3 ML NEBU IH SCH ×2 (08:59→20:53)
[2022-05-19] MEDS: QUEtiapine 100 MG TAB FEEDTUBE SCH ×2 (10:39→21:18)
[2022-05-19] MEDS: DOCUSATE SODIUM 100 MG/10 ML ORAL LIQD FEEDTUBE SCH ×2 (10:39→21:17)
[2022-05-19] MEDS: VANCOMYCIN/NS 1 GM/250 ML 1 GM/250 ML BAG IV SCH ×2 (10:39→22:30)
[2022-05-19] MEDS: FAMOTIDINE 20 MG TAB FEEDTUBE SCH ×2 (10:39→21:18)
[2022-05-19] MEDS: POLYETHYLENE GLYCOL 3350 17 GM POWDER FEEDTUBE SCH (10:40)
--- NOTE | 2022-05-19 11:08 | Progress Note ---
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 #Acute v/s now chronic respiratory failure: on the vent. S/P trach, PEG #ALS: Was on home hospice. #Bacillus bacteremia: likely contaminant. Recs: -continue with IV meropenem + vancomycin for now -f/u sputum cultures -noted plans for debridement of his sacral decubitus ulcer Carmen German MD, FACP, [place] [facility] ([facility] O: [phone] F: [phone] C: [phone] Subjective Date of service: 05/19/22 Principal diagnosis: Ac and ch hypercapnic and hypoxemic Resp Failure; ALS; HCAP; Sepsis; NSTEMI Interval history: Low grade temperatures. Family members at bedside. Remains on the vent. Objective - Exam Narrative Exam: Physical Exam: Constitutional: awake, on the vent, trach + Head, Ears, Nose: Normocephalic, atraumatic. External ears, nose normal Eyes: Conjunctivae/corneas clear. No icterus. No ptosis. Neck: trach + Cardiovascular: S1, S2 + Respiratory: AE fair bilaterally and equal GI: Soft, bowel sounds +, PEG + Musculoskeletal: No pedal edema, no cyanosis. Skin: sacral decubitus + Hem/Lymphatic: No palpable cervical or supraclavicular nodes. No lymphangitis Psych: no agitation Neurological: awake, on the vent, exam limited - Constitutional Vitals: Vital Signs Temp Pulse Resp BP Pulse Ox 99.1 F 111 H 9 L 105/67 94 05/19/22 08:00 05/19/22 10:00 05/19/22 10:00 05/19/22 10:00 05/19/22 10:00 Temperature -Last 24 Hours Temperature 99.1 F Temperature 100.8 F Temperature 100.7 F Temperature 98.9 F Temperature 99.9 F Temperature 99.9 F Temperature 99 F Temperature 98.7 F Temperature 98.6 F Temperature 99.6 F Temperature 99.6 F Temperature 99.7 F Temperature 98.6 F - Labs CBC & Chem 7: 05/18/22 23:21 05/18/22 05:41 Labs: Abnormal lab results 05/18/22 05/18/22 05/18/22 Range/Units 13:56 21:08 23:21 WBC 13.5 H (4.5-11.0) K/mm3 RBC 2.53 L (3.65-5.03) M/mm3 Hgb 7.2 L (11.8-15.2) gm/dl Hct 21.5 L (35.5-45.6) % RDW 16.4 H (13.2-15.2) % ABG pO2 (80.0-90.0) mm Hg ABG HCO3 (20.0-26.0) mmol/L ABG Base Excess (-2.0-3.0) mmol/L ABG Hemoglobin (14.0-18.0) gm/dl POC Glucose 137 H (70-105) mg/dL Crossmatch See Detail 05/19/22 Range/Units 06:10 WBC (4.5-11.0) K/mm3 RBC (3.65-5.03) M/mm3 Hgb (11.8-15.2) gm/dl Hct (35.5-45.6) % RDW (13.2-15.2) % ABG pO2 70.5 L (80.0-90.0) mm Hg ABG HCO3 30.3 H (20.0-26.0) mmol/L ABG Base Excess 4.9 H (-2.0-3.0) mmol/L ABG Hemoglobin 5.9 L (14.0-18.0) gm/dl POC Glucose (70-105) mg/dL Crossmatch
--- NOTE | 2022-05-19 12:24 | Anesthesia Consultation ---
Anesthesia Consult and Med Hx Date of service: 05/19/22 - Airway Anesthetic Teeth Evaluation: Poor ROM Head & Neck: Adequate Mental/Hyoid Distance: Adequate Mallampati Class: Class II (patient has tracheostomy, on the vent) - Pulmonary Hx Asthma: No Hx Respiratory Symptoms: Yes (acute hypoxic resp failure, vent dependent) COPD: No Hx Pneumonia: Yes - Cardiovascular System Hx Hypertension: No (prior hx; septic this admission off pressors since 04/09/22) Hx Coronary Artery Disease: Yes (w/ NSTEMI, EF 40-45%; conservative cardiac management) Hx Percutaneous Transluminal Coronary Angioplasty (PTCA): No - Central Nervous System Hx Neuromuscular Disorder: Yes (ALS) - Endocrine Hx End Stage Renal Disease: No Hx Liver Disease: No Hx Non-Insulin Dependent Diabetes: No - Hematic Hx Anemia: Yes - Other Systems Hx Cancer: No - Additional Comments Anesthesia Medical History Comments: bed sore, right hip
--- NOTE | 2022-05-19 12:25 | Anesthesia Day of Surgery ---
Anesthesia Day of Surgery - Day of Surgery Patient Examined: Yes Patient H&P Reviewed: Yes Patient is NPO: Yes
[2022-05-19] MEDS ORDERED: SODIUM CHLORIDE 0.9% 1000 ML 1,000 ML ONE (15:42)
[2022-05-19] MEDS ORDERED: MIDAZOLAM 2 MG/2 ML INJ ONE (16:36)
[2022-05-19] MEDS ORDERED: LIDOCAINE JELLY (2%) 5 ML TOPICAL ONE (16:46)
[2022-05-19] MEDS ORDERED: LIDOCAINE (4%) 40 MG/ML TOPICAL SOLN 50 ML BOTTLE TP ONE (16:47)
[2022-05-19] MEDS ORDERED: LIDOCAINE 2% JELLY 30 ML TP ONE (17:13)
[2022-05-19] MEDS ORDERED: SODIUM CHLORIDE 0.9% IRRIG SOLN 2000 ML IR ONE (17:14)
[2022-05-19] MEDS ORDERED: ePHEDrine SULFATE 50 MG/1 ML INJ ONE (17:17)
[2022-05-19] MEDS ORDERED: PHENYLEPHRINE/NS 1,000 MCG/10 ML SYRINGE (OR USE) IV ONE (17:18)
[2022-05-19] MEDS ORDERED: ONDANSETRON 4 MG/2 ML INJ ONE (17:33)
--- NOTE | 2022-05-19 18:10 | Post Anesthesia Evaluation ---
- Post Anesthesia Evaluation Patient Participated: No (Trach) Airway Patent: Yes Stable Respiratory Function: Yes Nausea/Vomiting: No Temp > 96.8F: Yes Pain Manageable: Yes Adequeate Hydration: Yes Block Receding Appropriately: Not Applicable Patient on Ventilator: Yes (back at baseline )
--- NOTE | 2022-05-19 18:14 | Operative Report ---
Operative Report Operative Report: Date: 05/19/2022 Preoperative diagnosis: Decubitus ulcer of sacrum Postop diagnosis: Same Procedure: Debridement of decubitus ulcer of the sacrum 6 cm x 8 cm in size and 1 cm deep Surgeon: Dr. Rosas EBL: Less than 10 cc Anesthesia: General anesthesia through tracheostomy Specimen: Wound cultures from the deep aspect of the wound Procedure: The patient is taken to the OR and after timeouts are completed the patient is placed in a prone position. The decubitus ulcer is prepped with Betadine and draped in a sterile fashion. Thick necrotic tissue was encountered and debrided mechanically with a curved Sanchez and #10 scalpel. Wound depth is noted to be down to the sacral bone. The Green[employer]ancer generator platform was then used with the flat tip for ultrasound debridement of the interface between the necrotic tissue and the living tissue. Electrocautery was used for hemostasis.The wound is then irrigated with copious amounts of saline. The skin substitute material is brought onto the table. There is a 4 x 6 cm piece of TheraGenesis composite material with silicone mesh that is placed into the wound and sutured in place with 2-0 Vicryl suture. That there Altagracia is covered with Adaptic. A wound VAC is then placed into the wound. The wound VAC foam was then kept in place with the inferior dressing in place to suction there is a good seal. The patient is then returned back to the ICU.
--- NOTE | 2022-05-19 18:45 | Progress Note ---
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 Right lung hemiopacification- Atelectasis s/p Bronchoscopy Oropharyngeal dysphagia s/p PEG Protein calorie malnutrition Acute Bronchopneumonia HCAP Hypotension NSTEMI H/o Amyotrophic Lateral Sclerosis Nonverbal at Baseline s/p Wound debridement today Continue on hospital ventilator until discharge planning Will need to go back to OR in a week per General surgery -Continue current antibiotics, ID following -Follow up cultures, trend temperature curve and WCC -Replace potassium- keep K >3.5; Mg at 2 and Phos >2.5 to optimize respiratory muscle function -Trach care, airway clearance, -continue with bronchodilators and chest PT -CXR,ABG as clinically indicated -Continue with mucolytics and chest PT -Blood cultures negative to date Previous trach aspirate- Pseudomonas -Titrate supplemental oxygen to keep SpO2 89-92% -VAP bundle addressed, aspiration precautions HOB >40 -Monitoring renal function, hemodynamics and electrolyte profile -Accuchecks with glycemic control. target blood glucose 140-180 mg/dL. Avoid hypoglycemia -Continue enteric nutritional support, bowel regimen -VTE prophylaxis- Heparin -Avoid nephrotoxins and renally dose all medications -Stress ulcer prophylaxis- Famotidine -Mobility, frequent turning, off loading per facility protocol to prevent pressure ulcers -Maintain sleep wake cycle, avoid benzodiazepines. -Limit delirium CONDITION:CRITICAL PROGNOSIS: GUARDED CODE STATUS; FULL CODE The high probability of a clinically significant, sudden or life threatening deterioration of the respiratory, cardiovascular, neurology system required my full and direct attention, intervention and personal management. The aggregate critical care time was [33] minutes. 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 Vitals, labs, medications, chart and imaging reviewed. Discussed with respiratory and nursing care staff. s/p trach and PEG. On Hospital vent Febrile overnight . s/p wound debridement today- dsicussed with Dr. Rosas ( surgeon) Objective Vital Signs - 12hr 05/19/22 05/19/22 05/19/22 07:00 08:00 08:50 Temperature 99.1 F Pulse Rate 140 H 114 H 113 H Pulse Rate [ 111 H Bilateral Throughout] Pulse Rate [ 113 H From Monitor] Respiratory 15 9 L Rate Respiratory 18 Rate [Bilateral Throughout] Blood Pressure 117/62 104/72 104/72 O2 Sat by Pulse 96 87 100 Oximetry O2 Sat by Pulse 100 Oximetry [ Assessment] 05/19/22 05/19/22 05/19/22 09:00 10:00 11:00 Temperature Pulse Rate 113 H 111 H 113 H Pulse Rate [ Bilateral Throughout] Pulse Rate [ From Monitor] Respiratory 9 L 9 L 16 Rate Respiratory Rate [Bilateral Throughout] Blood Pressure 99/69 105/67 102/70 O2 Sat by Pulse 93 94 97 Oximetry O2 Sat by Pulse Oximetry [ Assessment] 05/19/22 05/19/22 05/19/22 12:00 12:14 13:00 Temperature 99.1 F Pulse Rate 112 H 112 H 115 H Pulse Rate [ Bilateral Throughout] Pulse Rate [ 113 H From Monitor] Respiratory 15 16 Rate Respiratory Rate [Bilateral Throughout] Blood Pressure 102/69 102/69 105/73 O2 Sat by Pulse 96 97 95 Oximetry O2 Sat by Pulse Oximetry [ Assessment] 05/19/22 05/19/22 05/19/22 14:00 15:00 16:00 Temperature 99.3 F Pulse Rate 113 H 117 H 112 H Pulse Rate [ Bilateral Throughout] Pulse Rate [ 115 H From Monitor] Respiratory 14 13 13 Rate Respiratory Rate [Bilateral Throughout] Blood Pressure 107/69 111/71 110/65 O2 Sat by Pulse 94 92 91 Oximetry O2 Sat by Pulse 97 Oximetry [ Assessment] 05/19/22 05/19/22 16:08 18:02 Temperature Pulse Rate 117 H 92 H Pulse Rate [ Bilateral Throughout] Pulse Rate [ From Monitor] Respiratory Rate Respiratory Rate [Bilateral Throughout] Blood Pressure 110/65 O2 Sat by Pulse 97 100 Oximetry O2 Sat by Pulse Oximetry [ Assessment] Constitutional: no acute distress, alert, other (resting in bed with mildly increased respiratory effort at rest) Eyes: non-icteric ENT: oropharynx moist, other (+ midline tracheostomy to home vent) Neck: supple, no lymphadenopathy, no JVD Effort: mildly labored Ascultation: Bilateral: diminished breath sounds (bases), rhonchi Percussion: Bilateral: not dull Cardiovascular: regular rate and rhythm, other (S1,S2) Gastrointestinal: normoactive bowel sounds, soft, non-tender, non-distended Integumentary: normal, decubitus ulcer (see wound care pictures- wound vac) Extremities: no cyanosis, no edema, pink and warm, pulses normal Neurologic: pupils equal and round, other (functional quadriplegia) Psychiatric: mood appropriate, affect normal CBC and BMP: 05/24/22 04:22 05/24/22 04:22 ABG, PT/INR, D-dimer: ABG ABG pH 7.385 pH Units (7.350-7.450) 05/19/22 06:10 ABG pCO2 51.9 mm Hg 05/19/22 06:10 ABG pO2 70.5 mm Hg (80.0-90.0) L 05/19/22 06:10 ABG O2 Saturation 97.6 % (95.0-99.0) 05/19/22 06:10 PT/INR, D-dimer PT 13.6 Sec. (12.2-14.9) 04/13/22 04:30 INR 0.94 (0.87-1.13) 04/13/22 04:30 Abnormal lab findings: Abnormal Labs 04/02/22 04/02/22 04/02/22 19:39 19:39 19:39 WBC 14.3 H RBC Hgb Hct MCV 96 H MCHC RDW Plt Count 104 L Lymph % (Auto) Dickens % (Auto) Lymph # (Auto) Dick[place] # (Auto) Seg Neutrophils % Seg Neuts % (Manual) 94.0 H Lymphocytes % (Manual) 1.0 L Seg Neutrophils # Seg Neutrophils # Man 13.4 H Lymphocytes # (Manual) 0.1 L PT 15.9 H INR 1.14 H ABG pH ABG pO2 ABG HCO3 ABG O2 Saturation ABG Base Excess ABG Hemoglobin Oxyhemoglobin Sodium 151 H Potassium Chloride Carbon Dioxide BUN Creatinine 0.5 L Glucose POC Glucose Calcium 8.2 L Phosphorus Magnesium 1.60 L Total Creatine Kinase CK-MB (CK-2) Rel Index Troponin T 0.048 H C-Reactive Protein Total Protein 4.6 L Albumin 2.7 L LDL Cholesterol Direct 27 L Urine WBC (Auto) Crossmatch 04/02/22 04/03/22 04/03/22 19:42 05:14 06:30 WBC RBC Hgb Hct MCV MCHC RDW Plt Count Lymph % (Auto) Dick[place] % (Auto) Lymph # (Auto) Dick[place] # (Auto) Seg Neutrophils % Seg Neuts % (Manual) Lymphocytes % (Manual) Seg Neutrophils # Seg Neutrophils # Man Lymphocytes # (Manual) PT INR ABG pH 7.471 H 7.496 H ABG pO2 47.8 L 91.0 H ABG HCO3 30.6 H ABG O2 Saturation 94.4 L ABG Base Excess 6.2 H ABG Hemoglobin 11.0 L 12.8 L Oxyhemoglobin 93.1 L Sodium 149 H Potassium 3.4 L Chloride Carbon Dioxide BUN Creatinine 0.4 L Glucose POC Glucose Calcium Phosphorus Magnesium Total Creatine Kinase CK-MB (CK-2) Rel Index Troponin T C-Reactive Protein Total Protein Albumin LDL Cholesterol Direct Urine WBC (Auto) Crossmatch 04/04/22 04/04/22 04/04/22 04:18 04:18 05:50 WBC 11.8 H RBC Hgb Hct MCV MCHC RDW Plt Count 132 L Lymph % (Auto) Dick[place] % (Auto) Lymph # (Auto) Dick[place] # (Auto) Seg Neutrophils % Seg Neuts % (Manual) Lymphocytes % (Manual) Seg Neutrophils # Seg Neutrophils # Man Lymphocytes # (Manual) PT INR ABG pH 7.517 H ABG pO2 115.5 H ABG HCO3 29.9 H ABG O2 Saturation ABG Base Excess 6.7 H ABG Hemoglobin 12.3 L Oxyhemoglobin Sodium Potassium 3.5 L Chloride Carbon Dioxide 31 H BUN Creatinine 0.3 L Glucose 153 H POC Glucose Calcium Phosphorus 1.40 L Magnesium 1.50 L Total Creatine Kinase CK-MB (CK-2) Rel Index Troponin T C-Reactive Protein 31.60 H Total Protein Albumin LDL Cholesterol Direct Urine WBC (Auto) Crossmatch 04/05/22 04/05/22 04/05/22 02:50 05:25 11:28 WBC RBC Hgb Hct MCV MCHC RDW Plt Count Lymph % (Auto) Dick[place] % (Auto) Lymph # (Auto) Dick[place] # (Auto) Seg Neutrophils % Seg Neuts % (Manual) Lymphocytes % (Manual) Seg Neutrophils # Seg Neutrophils # Man Lymphocytes # (Manual) PT INR ABG pH 7.455 H ABG pO2 50.7 L ABG HCO3 30.5 H ABG O2 Saturation 89.4 L ABG Base Excess 5.9 H ABG Hemoglobin 11.8 L Oxyhemoglobin 88.2 L Sodium Potassium Chloride Carbon Dioxide 32 H BUN Creatinine 0.2 L Glucose 110 H POC Glucose 124 H Calcium 7.9 L Phosphorus Magnesium Total Creatine Kinase CK-MB (CK-2) Rel Index Troponin T C-Reactive Protein Total Protein Albumin LDL Cholesterol Direct Urine WBC (Auto) Crossmatch 04/05/22 04/05/22 04/06/22 17:45 Unknown 04:00 WBC RBC 3.55 L Hgb 11.1 L 11.5 L Hct 33.2 L 35.1 L MCV MCHC RDW Plt Count 113 L 114 L Lymph % (Auto) Dick[place] % (Auto) Lymph # (Auto) Dick[place] # (Auto) Seg Neutrophils % Seg Neuts % (Manual) Lymphocytes % (Manual) Seg Neutrophils # Seg Neutrophils # Man Lymphocytes # (Manual) PT INR ABG pH ABG pO2 ABG HCO3 ABG O2 Saturation ABG Base Excess ABG Hemoglobin Oxyhemoglobin Sodium Potassium Chloride Carbon Dioxide BUN Creatinine Glucose POC Glucose Calcium Phosphorus Magnesium Total Creatine Kinase CK-MB (CK-2) Rel Index Troponin T C-Reactive Protein Total Protein Albumin LDL Cholesterol Direct Urine WBC (Auto) 8.0 H Crossmatch 04/06/22 04/06/22 04/07/22 04:00 08:30 00:04 WBC RBC Hgb Hct MCV MCHC RDW Plt Count Lymph % (Auto) Dick[place] % (Auto) Lymph # (Auto) Dick[place] # (Auto) Seg Neutrophils % Seg Neuts % (Manual) Lymphocytes % (Manual) Seg Neutrophils # Seg Neutrophils # Man Lymphocytes # (Manual) PT INR ABG pH ABG pO2 60.8 L ABG HCO3 30.5 H ABG O2 Saturation 93.3 L ABG Base Excess 4.9 H ABG Hemoglobin 12.4 L Oxyhemoglobin 92.1 L Sodium Potassium 3.0 L Chloride Carbon Dioxide BUN Creatinine < 0.2 L Glucose 130 H POC Glucose 117 H Calcium 8.1 L Phosphorus Magnesium Total Creatine Kinase CK-MB (CK-2) Rel Index Troponin T C-Reactive Protein Total Protein Albumin LDL Cholesterol Direct Urine WBC (Auto) Crossmatch 04/07/22 04/07/22 04/07/22 03:51 03:51 03:51 WBC 14.6 H RBC 3.57 L Hgb 11.1 L Hct 33.2 L MCV MCHC RDW Plt Count 118 L Lymph % (Auto) 4.3 L Dick[place] % (Auto) 8.8 H Lymph # (Auto) 0.6 L Dick[place] # (Auto) 1.3 H Seg Neutrophils % 86.6 H Seg Neuts % (Manual) Lymphocytes % (Manual) Seg Neutrophils # 12.7 H Seg Neutrophils # Man Lymphocytes # (Manual) PT 15.2 H INR ABG pH ABG pO2 ABG HCO3 ABG O2 Saturation ABG Base Excess ABG Hemoglobin Oxyhemoglobin Sodium 133 L Potassium Chloride 96.0 L Carbon Dioxide 31 H BUN Creatinine 0.2 L Glucose 130 H POC Glucose Calcium 8.0 L Phosphorus Magnesium Total Creatine Kinase CK-MB (CK-2) Rel Index Troponin T C-Reactive Protein Total Protein Albumin LDL Cholesterol Direct Urine WBC (Auto) Crossmatch 04/07/22 04/07/22 04/08/22 04:25 09:10 04:49 WBC 16.1 H RBC 3.54 L Hgb 10.9 L Hct 33.3 L MCV MCHC RDW Plt Count Lymph % (Auto) Dick[place] % (Auto) Lymph # (Auto) Dick[place] # (Auto) Seg Neutrophils % Seg Neuts % (Manual) Lymphocytes % (Manual) Seg Neutrophils # Seg Neutrophils # Man Lymphocytes # (Manual) PT INR ABG pH ABG pO2 71.0 L 63.4 L ABG HCO3 31.5 H 40.0 H ABG O2 Saturation 94.9 L ABG Base Excess 5.9 H 13.6 H ABG Hemoglobin 11.3 L 9.0 L Oxyhemoglobin 93.6 L Sodium Potassium Chloride Carbon Dioxide BUN Creatinine Glucose POC Glucose Calcium Phosphorus Magnesium Total Creatine Kinase CK-MB (CK-2) Rel Index Troponin T C-Reactive Protein Total Protein Albumin LDL Cholesterol Direct Urine WBC (Auto) Crossmatch 04/08/22 04/08/22 04/08/22 04:49 09:53 10:25 WBC RBC Hgb Hct MCV MCHC RDW Plt Count Lymph % (Auto) Dick[place] % (Auto) Lymph # (Auto) [place] # (Auto) Seg Neutrophils % Seg Neuts % (Manual) Lymphocytes % (Manual) Seg Neutrophils # Seg Neutrophils # Man Lymphocytes # (Manual) PT INR ABG pH ABG pO2 ABG HCO3 34.7 H ABG O2 Saturation ABG Base Excess 7.9 H ABG Hemoglobin 11.0 L Oxyhemoglobin Sodium 136 L Potassium Chloride 97.7 L Carbon Dioxide 33 H BUN Creatinine 0.2 L Glucose 155 H POC Glucose Calcium Phosphorus Magnesium Total Creatine Kinase CK-MB (CK-2) Rel Index Troponin T 0.030 H C-Reactive Protein Total Protein Albumin LDL Cholesterol Direct Urine WBC (Auto) Crossmatch 04/08/22 04/08/22 04/08/22 11:19 17:47 18:06 WBC RBC Hgb Hct MCV MCHC RDW Plt Count Lymph % (Auto) Dick[place] % (Auto) Lymph # (Auto) [place] # (Auto) Seg Neutrophils % Seg Neuts % (Manual) Lymphocytes % (Manual) Seg Neutrophils # Seg Neutrophils # Man Lymphocytes # (Manual) PT INR ABG pH ABG pO2 ABG HCO3 ABG O2 Saturation ABG Base Excess ABG Hemoglobin Oxyhemoglobin Sodium Potassium Chloride Carbon Dioxide BUN Creatinine Glucose POC Glucose 121 H Calcium Phosphorus Magnesium Total Creatine Kinase 31 L 46 L CK-MB (CK-2) Rel Index 6.4 H 5.6 H Troponin T 0.030 H 0.031 H C-Reactive Protein Total Protein Albumin LDL Cholesterol Direct Urine WBC (Auto) Crossmatch 04/09/22 04/09/22 04/09/22 04:35 04:35 11:24 WBC 11.5 H RBC 3.16 L Hgb 9.9 L Hct 29.4 L MCV MCHC RDW Plt Count 131 L Lymph % (Auto) Dick[place] % (Auto) Lymph # (Auto) [place] # (Auto) Seg Neutrophils % Seg Neuts % (Manual) Lymphocytes % (Manual) Seg Neutrophils # Seg Neutrophils # Man Lymphocytes # (Manual) PT INR ABG pH ABG pO2 ABG HCO3 ABG O2 Saturation ABG Base Excess ABG Hemoglobin Oxyhemoglobin Sodium Potassium Chloride 97.1 L Carbon Dioxide 35 H BUN Creatinine < 0.2 L Glucose 145 H POC Glucose 147 H Calcium Phosphorus Magnesium Total Creatine Kinase CK-MB (CK-2) Rel Index Troponin T C-Reactive Protein Total Protein Albumin LDL Cholesterol Direct Urine WBC (Auto) Crossmatch 0604/09/22 04/09/22 13:00 17:32 23:48 WBC RBC Hgb Hct MCV MCHC RDW Plt Count Lymph % (Auto) Dick[place] % (Auto) Lymph # (Auto) [place] # (Auto) Seg Neutrophils % Seg Neuts % (Manual) Lymphocytes % (Manual) Seg Neutrophils # Seg Neutrophils # Man Lymphocytes # (Manual) PT INR ABG pH ABG pO2 66.6 L ABG HCO3 38.2 H ABG O2 Saturation 94.4 L ABG Base Excess 10.7 H ABG Hemoglobin 10.7 L Oxyhemoglobin 92.8 L Sodium Potassium Chloride Carbon Dioxide BUN Creatinine Glucose POC Glucose 143 H 114 H Calcium Phosphorus Magnesium Total Creatine Kinase CK-MB (CK-2) Rel Index Troponin T C-Reactive Protein Total Protein Albumin LDL Cholesterol Direct Urine WBC (Auto) Crossmatch 04/10/22 04/10/22 04/10/22 04:48 04:48 05:34 WBC RBC 2.91 L Hgb 9.1 L Hct 27.7 L MCV 95 H MCHC RDW Plt Count Lymph % (Auto) Dick[place] % (Auto) Lymph # (Auto) [place] # (Auto) Seg Neutrophils % Seg Neuts % (Manual) Lymphocytes % (Manual) Seg Neutrophils # Seg Neutrophils # Man Lymphocytes # (Manual) PT INR ABG pH ABG pO2 ABG HCO3 ABG O2 Saturation ABG Base Excess ABG Hemoglobin Oxyhemoglobin Sodium Potassium Chloride 95.7 L Carbon Dioxide 38 H BUN Creatinine < 0.2 L Glucose 118 H POC Glucose 127 H Calcium Phosphorus Magnesium Total Creatine Kinase CK-MB (CK-2) Rel Index Troponin T C-Reactive Protein Total Protein Albumin LDL Cholesterol Direct Urine WBC (Auto) Crossmatch 04/10/22 04/11/22 04/11/22 23:10 04:15 04:15 WBC 17.2 H RBC 2.98 L Hgb 9.2 L Hct 27.9 L MCV MCHC RDW Plt Count Lymph % (Auto) Dick[place] % (Auto) Lymph # (Auto) [place] # (Auto) Seg Neutrophils % Seg Neuts % (Manual) Lymphocytes % (Manual) Seg Neutrophils # Seg Neutrophils # Man Lymphocytes # (Manual) PT INR ABG pH ABG pO2 ABG HCO3 ABG O2 Saturation ABG Base Excess ABG Hemoglobin Oxyhemoglobin Sodium Potassium Chloride 96.1 L Carbon Dioxide 35 H BUN Creatinine < 0.2 L Glucose 138 H POC Glucose 106 H Calcium 8.3 L Phosphorus Magnesium Total Creatine Kinase CK-MB (CK-2) Rel Index Troponin T C-Reactive Protein Total Protein Albumin LDL Cholesterol Direct Urine WBC (Auto) Crossmatch 04/11/22 04/11/22 04/11/22 05:31 13:18 16:20 WBC RBC Hgb Hct MCV MCHC RDW Plt Count Lymph % (Auto) Dick[place] % (Auto) Lymph # (Auto) [place] # (Auto) Seg Neutrophils % Seg Neuts % (Manual) Lymphocytes % (Manual) Seg Neutrophils # Seg Neutrophils # Man Lymphocytes # (Manual) PT INR ABG pH ABG pO2 57.8 L ABG HCO3 40.5 H ABG O2 Saturation 90.6 L ABG Base Excess 12.6 H ABG Hemoglobin 10.5 L Oxyhemoglobin 89.0 L Sodium Potassium Chloride Carbon Dioxide BUN Creatinine Glucose POC Glucose 129 H 132 H Calcium Phosphorus Magnesium Total Creatine Kinase CK-MB (CK-2) Rel Index Troponin T C-Reactive Protein Total Protein Albumin LDL Cholesterol Direct Urine WBC (Auto) Crossmatch 04/11/22 04/11/22 04/12/22 17:29 23:17 04:00 WBC 17.4 H RBC 2.96 L Hgb 9.0 L Hct 28.0 L MCV 95 H MCHC RDW Plt Count Lymph % (Auto) Dick[place] % (Auto) Lymph # (Auto) [place] # (Auto) Seg Neutrophils % Seg Neuts % (Manual) Lymphocytes % (Manual) Seg Neutrophils # Seg Neutrophils # Man Lymphocytes # (Manual) PT INR ABG pH ABG pO2 ABG HCO3 ABG O2 Saturation ABG Base Excess ABG Hemoglobin Oxyhemoglobin Sodium Potassium Chloride Carbon Dioxide BUN Creatinine Glucose POC Glucose 125 H 151 H Calcium Phosphorus Magnesium Total Creatine Kinase CK-MB (CK-2) Rel Index Troponin T C-Reactive Protein Total Protein Albumin LDL Cholesterol Direct Urine WBC (Auto) Crossmatch 04/12/22 04/12/22 04/12/22 04:00 17:03 23:39 WBC RBC Hgb Hct MCV MCHC RDW Plt Count Lymph % (Auto) [place] % (Auto) Lymph # (Auto) [place] # (Auto) Seg Neutrophils % Seg Neuts % (Manual) Lymphocytes % (Manual) Seg Neutrophils # Seg Neutrophils # Man Lymphocytes # (Manual) PT INR ABG pH ABG pO2 ABG HCO3 ABG O2 Saturation ABG Base Excess ABG Hemoglobin Oxyhemoglobin Sodium Potassium Chloride 97.4 L Carbon Dioxide 37 H BUN Creatinine < 0.2 L Glucose 127 H POC Glucose 106 H 107 H Calcium Phosphorus Magnesium Total Creatine Kinase CK-MB (CK-2) Rel Index Troponin T C-Reactive Protein Total Protein Albumin LDL Cholesterol Direct Urine WBC (Auto) Crossmatch 04/13/22 04/13/22 04/13/22 04:30 04:30 17:39 WBC 14.1 H RBC 2.66 L Hgb 8.4 L Hct 25.5 L MCV 96 H MCHC RDW Plt Count Lymph % (Auto) Dick[place] % (Auto) Lymph # (Auto) [place] # (Auto) Seg Neutrophils % Seg Neuts % (Manual) Lymphocytes % (Manual) Seg Neutrophils # Seg Neutrophils # Man Lymphocytes # (Manual) PT INR ABG pH ABG pO2 ABG HCO3 ABG O2 Saturation ABG Base Excess ABG Hemoglobin Oxyhemoglobin Sodium Potassium Chloride 93.9 L Carbon Dioxide 39 H BUN Creatinine < 0.2 L Glucose POC Glucose 134 H Calcium Phosphorus 1.90 L Magnesium Total Creatine Kinase CK-MB (CK-2) Rel Index Troponin T C-Reactive Protein Total Protein Albumin LDL Cholesterol Direct Urine WBC (Auto) Crossmatch 04/14/22 04/14/22 04/14/22 05:03 05:03 09:10 WBC 15.6 H RBC 3.02 L Hgb 9.3 L Hct 28.8 L MCV 95 H MCHC RDW Plt Count Lymph % (Auto) Dick[place] % (Auto) Lymph # (Auto) [place] # (Auto) Seg Neutrophils % Seg Neuts % (Manual) Lymphocytes % (Manual) Seg Neutrophils # Seg Neutrophils # Man Lymphocytes # (Manual) PT INR ABG pH ABG pO2 66.9 L ABG HCO3 44.5 H ABG O2 Saturation ABG Base Excess 17.2 H ABG Hemoglobin 8.1 L Oxyhemoglobin 94.8 L Sodium Potassium Chloride 93.8 L Carbon Dioxide 42 H* BUN Creatinine < 0.2 L Glucose 117 H POC Glucose Calcium Phosphorus Magnesium Total Creatine Kinase CK-MB (CK-2) Rel Index Troponin T C-Reactive Protein Total Protein Albumin LDL Cholesterol Direct Urine WBC (Auto) Crossmatch 04/15/22 04/15/22 04/16/22 04:44 04:44 04:16 WBC 13.0 H 12.6 H RBC 3.19 L 3.09 L Hgb 9.6 L 9.5 L Hct 30.2 L 29.1 L MCV 95 H MCHC RDW Plt Count 456 H Lymph % (Auto) [place] % (Auto) Lymph # (Auto) [place] # (Auto) Seg Neutrophils % Seg Neuts % (Manual) Lymphocytes % (Manual) Seg Neutrophils # Seg Neutrophils # Man Lymphocytes # (Manual) PT INR ABG pH ABG pO2 ABG HCO3 ABG O2 Saturation ABG Base Excess ABG Hemoglobin Oxyhemoglobin Sodium Potassium Chloride 95.5 L Carbon Dioxide 37 H BUN Creatinine < 0.2 L Glucose POC Glucose Calcium Phosphorus Magnesium Total Creatine Kinase CK-MB (CK-2) Rel Index Troponin T C-Reactive Protein Total Protein Albumin LDL Cholesterol Direct Urine WBC (Auto) Crossmatch 04/16/22 04/16/22 04/16/22 04:16 05:00 14:00 WBC RBC Hgb Hct MCV MCHC RDW Plt Count Lymph % (Auto) [place] % (Auto) Lymph # (Auto) [place] # (Auto) Seg Neutrophils % Seg Neuts % (Manual) Lymphocytes % (Manual) Seg Neutrophils # Seg Neutrophils # Man Lymphocytes # (Manual) PT INR ABG pH 7.324 L ABG pO2 55.6 L ABG HCO3 45.3 H ABG O2 Saturation 87.1 L ABG Base Excess 16.6 H ABG Hemoglobin 8.6 L Oxyhemoglobin 85.7 L Sodium Potassium Chloride 97.6 L Carbon Dioxide 36 H BUN Creatinine < 0.2 L Glucose 109 H POC Glucose 120 H Calcium Phosphorus Magnesium Total Creatine Kinase CK-MB (CK-2) Rel Index Troponin T C-Reactive Protein Total Protein Albumin LDL Cholesterol Direct Urine WBC (Auto) Crossmatch 04/17/22 04/17/22 04/17/22 04:36 04:36 04:57 WBC 14.4 H RBC 3.08 L Hgb 9.4 L Hct 29.0 L MCV MCHC RDW Plt Count Lymph % (Auto) [place] % (Auto) Lymph # (Auto) [place] # (Auto) Seg Neutrophils % Seg Neuts % (Manual) Lymphocytes % (Manual) Seg Neutrophils # Seg Neutrophils # Man Lymphocytes # (Manual) PT INR ABG pH ABG pO2 ABG HCO3 ABG O2 Saturation ABG Base Excess ABG Hemoglobin Oxyhemoglobin Sodium Potassium Chloride 95.9 L Carbon Dioxide 39 H BUN Creatinine < 0.2 L Glucose 140 H POC Glucose 137 H Calcium 8.3 L Phosphorus Magnesium Total Creatine Kinase CK-MB (CK-2) Rel Index Troponin T C-Reactive Protein Total Protein Albumin LDL Cholesterol Direct Urine WBC (Auto) Crossmatch 04/17/22 04/17/22 04/18/22 09:15 18:01 04:20 WBC 11.2 H RBC 3.00 L Hgb 9.3 L Hct 28.6 L MCV 95 H MCHC RDW Plt Count Lymph % (Auto) [place] % (Auto) Lymph # (Auto) [place] # (Auto) Seg Neutrophils % Seg Neuts % (Manual) Lymphocytes % (Manual) Seg Neutrophils # Seg Neutrophils # Man Lymphocytes # (Manual) PT INR ABG pH 7.345 L ABG pO2 ABG HCO3 48.2 H ABG O2 Saturation ABG Base Excess 19.2 H ABG Hemoglobin 9.7 L Oxyhemoglobin Sodium Potassium Chloride Carbon Dioxide BUN Creatinine Glucose POC Glucose 129 H Calcium Phosphorus Magnesium Total Creatine Kinase CK-MB (CK-2) Rel Index Troponin T C-Reactive Protein Total Protein Albumin LDL Cholesterol Direct Urine WBC (Auto) Crossmatch 04/18/22 04/18/22 04/18/22 04:20 17:35 23:50 WBC RBC Hgb Hct MCV MCHC RDW Plt Count Lymph % (Auto) [place] % (Auto) Lymph # (Auto) [place] # (Auto) Seg Neutrophils % Seg Neuts % (Manual) Lymphocytes % (Manual) Seg Neutrophils # Seg Neutrophils # Man Lymphocytes # (Manual) PT INR ABG pH ABG pO2 ABG HCO3 ABG O2 Saturation ABG Base Excess ABG Hemoglobin Oxyhemoglobin Sodium Potassium Chloride 96.8 L Carbon Dioxide 43 H* BUN 22 H Creatinine < 0.2 L Glucose 137 H POC Glucose 128 H 123 H Calcium 8.2 L Phosphorus Magnesium Total Creatine Kinase CK-MB (CK-2) Rel Index Troponin T C-Reactive Protein Total Protein Albumin LDL Cholesterol Direct Urine WBC (Auto) Crossmatch 04/19/22 04/19/22 04/19/22 04:08 04:08 08:50 WBC 16.8 H RBC 3.18 L Hgb 9.8 L Hct 30.1 L MCV 95 H MCHC RDW Plt Count Lymph % (Auto) Dick[place] % (Auto) Lymph # (Auto) [place] # (Auto) Seg Neutrophils % Seg Neuts % (Manual) Lymphocytes % (Manual) Seg Neutrophils # Seg Neutrophils # Man Lymphocytes # (Manual) PT INR ABG pH ABG pO2 56.0 L ABG HCO3 47.1 H ABG O2 Saturation 93.3 L ABG Base Excess 20.1 H ABG Hemoglobin 8.0 L Oxyhemoglobin 91.8 L Sodium Potassium Chloride 96.2 L Carbon Dioxide 40 H BUN 24 H Creatinine < 0.2 L Glucose 125 H POC Glucose Calcium 8.3 L Phosphorus Magnesium Total Creatine Kinase CK-MB (CK-2) Rel Index Troponin T C-Reactive Protein Total Protein Albumin LDL Cholesterol Direct Urine WBC (Auto) Crossmatch 04/19/22 04/20/22 04/20/22 12:02 00:40 04:49 WBC 14.7 H RBC 3.36 L Hgb 10.3 L Hct 32.0 L MCV 95 H MCHC RDW Plt Count Lymph % (Auto) [place] % (Auto) Lymph # (Auto) [place] # (Auto) Seg Neutrophils % Seg Neuts % (Manual) Lymphocytes % (Manual) Seg Neutrophils # Seg Neutrophils # Man Lymphocytes # (Manual) PT INR ABG pH ABG pO2 ABG HCO3 ABG O2 Saturation ABG Base Excess ABG Hemoglobin Oxyhemoglobin Sodium Potassium Chloride Carbon Dioxide BUN Creatinine Glucose POC Glucose 124 H 140 H Calcium Phosphorus Magnesium Total Creatine Kinase CK-MB (CK-2) Rel Index Troponin T C-Reactive Protein Total Protein Albumin LDL Cholesterol Direct Urine WBC (Auto) Crossmatch 04/20/22 04/20/22 04/21/22 05:36 11:40 04:05 WBC RBC Hgb Hct MCV MCHC RDW Plt Count Lymph % (Auto) [place] % (Auto) Lymph # (Auto) [place] # (Auto) Seg Neutrophils % Seg Neuts % (Manual) Lymphocytes % (Manual) Seg Neutrophils # Seg Neutrophils # Man Lymphocytes # (Manual) PT INR ABG pH ABG pO2 ABG HCO3 ABG O2 Saturation ABG Base Excess ABG Hemoglobin Oxyhemoglobin Sodium Potassium Chloride 93.4 L Carbon Dioxide 40 H BUN 25 H Creatinine < 0.2 L Glucose 122 H POC Glucose 125 H 128 H Calcium Phosphorus Magnesium Total Creatine Kinase CK-MB (CK-2) Rel Index Troponin T C-Reactive Protein Total Protein Albumin LDL Cholesterol Direct Urine WBC (Auto) Crossmatch 04/21/22 04/22/2222 10:31 05:03 05:03 WBC 12.6 H 12.7 H RBC 2.83 L 2.96 L Hgb 8.6 L 9.0 L Hct 26.9 L 28.0 L MCV 95 H 95 H MCHC RDW Plt Count Lymph % (Auto) [place] % (Auto) Lymph # (Auto) [place] # (Auto) Seg Neutrophils % Seg Neuts % (Manual) Lymphocytes % (Manual) Seg Neutrophils # Seg Neutrophils # Man Lymphocytes # (Manual) PT INR ABG pH ABG pO2 ABG HCO3 ABG O2 Saturation ABG Base Excess ABG Hemoglobin Oxyhemoglobin Sodium Potassium Chloride 93.9 L Carbon Dioxide 43 H* BUN 23 H Creatinine < 0.2 L Glucose 137 H POC Glucose Calcium Phosphorus Magnesium Total Creatine Kinase CK-MB (CK-2) Rel Index Troponin T C-Reactive Protein Total Protein Albumin LDL Cholesterol Direct Urine WBC (Auto) Crossmatch 04/22/22 04/23/22 04/24/22 08:34 09:40 04:29 WBC 14.4 H RBC 2.74 L Hgb 8.4 L Hct 25.7 L MCV MCHC RDW Plt Count Lymph % (Auto) [place] % (Auto) Lymph # (Auto) [place] # (Auto) Seg Neutrophils % Seg Neuts % (Manual) Lymphocytes % (Manual) Seg Neutrophils # Seg Neutrophils # Man Lymphocytes # (Manual) PT INR ABG pH ABG pO2 54.1 L 56.8 L ABG HCO3 48.5 H 49.0 H ABG O2 Saturation 92.1 L 90.9 L ABG Base Excess 20.9 H 20.8 H ABG Hemoglobin 9.0 L 8.4 L Oxyhemoglobin 90.6 L 89.5 L Sodium Potassium Chloride Carbon Dioxide BUN Creatinine Glucose POC Glucose Calcium Phosphorus Magnesium Total Creatine Kinase CK-MB (CK-2) Rel Index Troponin T C-Reactive Protein Total Protein Albumin LDL Cholesterol Direct Urine WBC (Auto) Crossmatch 04/24/22 04/25/22 04/26/22 04:29 09:00 04:22 WBC RBC 2.88 L Hgb 8.9 L Hct 26.8 L MCV MCHC RDW Plt Count Lymph % (Auto) [place] % (Auto) Lymph # (Auto) [place] # (Auto) Seg Neutrophils % Seg Neuts % (Manual) Lymphocytes % (Manual) Seg Neutrophils # Seg Neutrophils # Man Lymphocytes # (Manual) PT INR ABG pH 7.457 H ABG pO2 66.7 L ABG HCO3 42.6 H ABG O2 Saturation ABG Base Excess 15.3 H ABG Hemoglobin 8.8 L Oxyhemoglobin 94.1 L Sodium Potassium Chloride 90.7 L Carbon Dioxide 40 H BUN Creatinine < 0.2 L Glucose 133 H POC Glucose Calcium Phosphorus Magnesium Total Creatine Kinase CK-MB (CK-2) Rel Index Troponin T C-Reactive Protein Total Protein Albumin LDL Cholesterol Direct Urine WBC (Auto) Crossmatch 04/26/22 04/29/22 04/29/22 04:22 04:18 04:18 WBC 13.5 H RBC 2.96 L Hgb 8.9 L Hct 27.7 L MCV MCHC RDW Plt Count Lymph % (Auto) [place] % (Auto) Lymph # (Auto) [place] # (Auto) Seg Neutrophils % Seg Neuts % (Manual) Lymphocytes % (Manual) Seg Neutrophils # Seg Neutrophils # Man Lymphocytes # (Manual) PT INR ABG pH ABG pO2 ABG HCO3 ABG O2 Saturation ABG Base Excess ABG Hemoglobin Oxyhemoglobin Sodium Potassium Chloride 93.2 L 95.2 L Carbon Dioxide 37 H 38 H BUN Creatinine < 0.2 L < 0.2 L Glucose 114 H 116 H POC Glucose Calcium Phosphorus Magnesium Total Creatine Kinase CK-MB (CK-2) Rel Index Troponin T C-Reactive Protein Total Protein Albumin LDL Cholesterol Direct Urine WBC (Auto) Crossmatch 05/02/22 05/03/22 05/03/22 04:29 04:02 04:02 WBC 12.9 H 12.3 H RBC 2.82 L 2.83 L Hgb 8.4 L 8.4 L Hct 26.2 L 26.0 L MCV MCHC RDW Plt Count Lymph % (Auto) [place] % (Auto) Lymph # (Auto) [place] # (Auto) Seg Neutrophils % Seg Neuts % (Manual) Lymphocytes % (Manual) Seg Neutrophils # Seg Neutrophils # Man Lymphocytes # (Manual) PT INR ABG pH ABG pO2 ABG HCO3 ABG O2 Saturation ABG Base Excess ABG Hemoglobin Oxyhemoglobin Sodium 134 L Potassium Chloride 90.5 L Carbon Dioxide 38 H BUN 21 H Creatinine < 0.2 L Glucose 126 H POC Glucose Calcium Phosphorus Magnesium Total Creatine Kinase CK-MB (CK-2) Rel Index Troponin T C-Reactive Protein Total Protein Albumin LDL Cholesterol Direct Urine WBC (Auto) Crossmatch 05/03/22 05/03/22 05/04/22 12:02 17:42 09:36 WBC RBC Hgb Hct MCV MCHC RDW Plt Count Lymph % (Auto) [place] % (Auto) Lymph # (Auto) [place] # (Auto) Seg Neutrophils % Seg Neuts % (Manual) Lymphocytes % (Manual) Seg Neutrophils # Seg Neutrophils # Man Lymphocytes # (Manual) PT INR ABG pH ABG pO2 55.4 L ABG HCO3 43.7 H ABG O2 Saturation 87.4 L ABG Base Excess 16.1 H ABG Hemoglobin 9.1 L Oxyhemoglobin 85.7 L Sodium Potassium Chloride Carbon Dioxide BUN Creatinine Glucose POC Glucose 139 H 131 H Calcium Phosphorus Magnesium Total Creatine Kinase CK-MB (CK-2) Rel Index Troponin T C-Reactive Protein Total Protein Albumin LDL Cholesterol Direct Urine WBC (Auto) Crossmatch 05/04/22 05/04/22 05/05/22 17:08 23:10 04:23 WBC 14.4 H RBC 2.75 L Hgb 8.2 L Hct 25.2 L MCV MCHC RDW Plt Count Lymph % (Auto) [place] % (Auto) Lymph # (Auto) [place] # (Auto) Seg Neutrophils % Seg Neuts % (Manual) Lymphocytes % (Manual) Seg Neutrophils # Seg Neutrophils # Man Lymphocytes # (Manual) PT INR ABG pH ABG pO2 ABG HCO3 ABG O2 Saturation ABG Base Excess ABG Hemoglobin Oxyhemoglobin Sodium Potassium Chloride Carbon Dioxide BUN Creatinine Glucose POC Glucose 124 H 115 H Calcium Phosphorus Magnesium Total Creatine Kinase CK-MB (CK-2) Rel Index Troponin T C-Reactive Protein Total Protein Albumin LDL Cholesterol Direct Urine WBC (Auto) Crossmatch 05/05/22 05/05/22 05/06/22 04:23 21:39 05:13 WBC RBC Hgb Hct MCV MCHC RDW Plt Count Lymph % (Auto) [place] % (Auto) Lymph # (Auto) [place] # (Auto) Seg Neutrophils % Seg Neuts % (Manual) Lymphocytes % (Manual) Seg Neutrophils # Seg Neutrophils # Man Lymphocytes # (Manual) PT INR ABG pH ABG pO2 ABG HCO3 ABG O2 Saturation ABG Base Excess ABG Hemoglobin Oxyhemoglobin Sodium Potassium Chloride 91.3 L Carbon Dioxide 38 H BUN 23 H Creatinine < 0.2 L Glucose 128 H POC Glucose 141 H 136 H Calcium Phosphorus Magnesium Total Creatine Kinase CK-MB (CK-2) Rel Index Troponin T C-Reactive Protein Total Protein Albumin LDL Cholesterol Direct Urine WBC (Auto) Crossmatch 05/07/22 05/07/22 05/08/22 05:29 22:15 05:48 WBC RBC Hgb Hct MCV MCHC RDW Plt Count Lymph % (Auto) [place] % (Auto) Lymph # (Auto) [place] # (Auto) Seg Neutrophils % Seg Neuts % (Manual) Lymphocytes % (Manual) Seg Neutrophils # Seg Neutrophils # Man Lymphocytes # (Manual) PT INR ABG pH ABG pO2 ABG HCO3 ABG O2 Saturation ABG Base Excess ABG Hemoglobin Oxyhemoglobin Sodium Potassium Chloride Carbon Dioxide BUN Creatinine Glucose POC Glucose 125 H 142 H 122 H Calcium Phosphorus Magnesium Total Creatine Kinase CK-MB (CK-2) Rel Index Troponin T C-Reactive Protein Total Protein Albumin LDL Cholesterol Direct Urine WBC (Auto) Crossmatch 05/08/22 05/08/22 05/09/22 14:04 21:48 15:15 WBC RBC 2.61 L Hgb 7.7 L Hct 23.2 L MCV MCHC RDW Plt Count Lymph % (Auto) 8.1 L [place] % (Auto) Lymph # (Auto) 0.9 L [place] # (Auto) Seg Neutrophils % 86.1 H Seg Neuts % (Manual) Lymphocytes % (Manual) Seg Neutrophils # 9.2 H Seg Neutrophils # Man Lymphocytes # (Manual) PT INR ABG pH ABG pO2 ABG HCO3 ABG O2 Saturation ABG Base Excess ABG Hemoglobin Oxyhemoglobin Sodium Potassium Chloride Carbon Dioxide BUN Creatinine Glucose POC Glucose 112 H 107 H Calcium Phosphorus Magnesium Total Creatine Kinase CK-MB (CK-2) Rel Index Troponin T C-Reactive Protein Total Protein Albumin LDL Cholesterol Direct Urine WBC (Auto) Crossmatch 05/09/22 05/09/22 05/09/22 15:15 15:39 21:15 WBC RBC Hgb Hct MCV MCHC RDW Plt Count Lymph % (Auto) [place] % (Auto) Lymph # (Auto) [place] # (Auto) Seg Neutrophils % Seg Neuts % (Manual) Lymphocytes % (Manual) Seg Neutrophils # Seg Neutrophils # Man Lymphocytes # (Manual) PT INR ABG pH ABG pO2 ABG HCO3 ABG O2 Saturation ABG Base Excess ABG Hemoglobin Oxyhemoglobin Sodium Potassium Chloride 92.9 L Carbon Dioxide 40 H BUN Creatinine < 0.2 L Glucose 141 H POC Glucose 118 H 112 H Calcium Phosphorus Magnesium Total Creatine Kinase CK-MB (CK-2) Rel Index Troponin T C-Reactive Protein Total Protein Albumin LDL Cholesterol Direct Urine WBC (Auto) Crossmatch 05/10/22 05/12/22 05/13/22 15:14 00:25 04:02 WBC 13.3 H RBC 3.14 L Hgb 8.7 L Hct 28.0 L MCV MCHC 31 L RDW Plt Count Lymph % (Auto) [place] % (Auto) Lymph # (Auto) [place] # (Auto) Seg Neutrophils % Seg Neuts % (Manual) Lymphocytes % (Manual) Seg Neutrophils # Seg Neutrophils # Man Lymphocytes # (Manual) PT INR ABG pH ABG pO2 ABG HCO3 ABG O2 Saturation ABG Base Excess ABG Hemoglobin Oxyhemoglobin Sodium Potassium Chloride Carbon Dioxide BUN Creatinine Glucose POC Glucose 113 H 158 H Calcium Phosphorus Magnesium Total Creatine Kinase CK-MB (CK-2) Rel Index Troponin T C-Reactive Protein Total Protein Albumin LDL Cholesterol Direct Urine WBC (Auto) Crossmatch 05/13/22 05/13/22 05/13/22 04:02 06:32 13:09 WBC RBC Hgb Hct MCV MCHC RDW Plt Count Lymph % (Auto) [place] % (Auto) Lymph # (Auto) [place] # (Auto) Seg Neutrophils % Seg Neuts % (Manual) Lymphocytes % (Manual) Seg Neutrophils # Seg Neutrophils # Man Lymphocytes # (Manual) PT INR ABG pH ABG pO2 ABG HCO3 ABG O2 Saturation ABG Base Excess ABG Hemoglobin Oxyhemoglobin Sodium 135 L Potassium Chloride 91.1 L Carbon Dioxide 40 H BUN 23 H Creatinine < 0.2 L Glucose 139 H POC Glucose 129 H 117 H Calcium Phosphorus Magnesium Total Creatine Kinase CK-MB (CK-2) Rel Index Troponin T C-Reactive Protein Total Protein Albumin LDL Cholesterol Direct Urine WBC (Auto) Crossmatch 05/13/22 05/14/22 05/14/22 21:28 05:44 07:35 WBC RBC Hgb Hct MCV MCHC RDW Plt Count Lymph % (Auto) [place] % (Auto) Lymph # (Auto) [place] # (Auto) Seg Neutrophils % Seg Neuts % (Manual) Lymphocytes % (Manual) Seg Neutrophils # Seg Neutrophils # Man Lymphocytes # (Manual) PT INR ABG pH ABG pO2 ABG HCO3 ABG O2 Saturation ABG Base Excess ABG Hemoglobin Oxyhemoglobin Sodium Potassium Chloride Carbon Dioxide BUN Creatinine Glucose POC Glucose 109 H 130 H 125 H Calcium Phosphorus Magnesium Total Creatine Kinase CK-MB (CK-2) Rel Index Troponin T C-Reactive Protein Total Protein Albumin LDL Cholesterol Direct Urine WBC (Auto) Crossmatch 05/14/22 05/14/22 05/15/22 16:26 23:44 10:44 WBC 13.9 H RBC 2.71 L Hgb 7.5 L Hct 23.5 L MCV MCHC RDW 15.9 H Plt Count Lymph % (Auto) [place] % (Auto) Lymph # (Auto) [place] # (Auto) Seg Neutrophils % Seg Neuts % (Manual) Lymphocytes % (Manual) Seg Neutrophils # Seg Neutrophils # Man Lymphocytes # (Manual) PT INR ABG pH ABG pO2 ABG HCO3 ABG O2 Saturation ABG Base Excess ABG Hemoglobin Oxyhemoglobin Sodium Potassium Chloride Carbon Dioxide BUN Creatinine Glucose POC Glucose 112 H 189 H Calcium Phosphorus Magnesium Total Creatine Kinase CK-MB (CK-2) Rel Index Troponin T C-Reactive Protein Total Protein Albumin LDL Cholesterol Direct Urine WBC (Auto) Crossmatch 05/15/22 05/16/22 05/16/22 10:44 14:50 21:36 WBC RBC Hgb Hct MCV MCHC RDW Plt Count Lymph % (Auto) [place] % (Auto) Lymph # (Auto) [place] # (Auto) Seg Neutrophils % Seg Neuts % (Manual) Lymphocytes % (Manual) Seg Neutrophils # Seg Neutrophils # Man Lymphocytes # (Manual) PT INR ABG pH ABG pO2 ABG HCO3 ABG O2 Saturation ABG Base Excess ABG Hemoglobin Oxyhemoglobin Sodium 135 L Potassium 3.3 L D Chloride 91.5 L Carbon Dioxide 33 H D BUN 21 H Creatinine < 0.2 L Glucose 118 H POC Glucose 133 H 123 H Calcium 7.9 L Phosphorus Magnesium Total Creatine Kinase CK-MB (CK-2) Rel Index Troponin T C-Reactive Protein Total Protein Albumin LDL Cholesterol Direct Urine WBC (Auto) Crossmatch 05/17/22 05/17/22 05/17/22 03:41 03:41 05:51 WBC 16.2 H RBC 2.53 L Hgb 7.0 L Hct 21.5 L MCV MCHC RDW 16.2 H Plt Count Lymph % (Auto) [place] % (Auto) Lymph # (Auto) [place] # (Auto) Seg Neutrophils % Seg Neuts % (Manual) 96.0 H Lymphocytes % (Manual) 1.0 L Seg Neutrophils # Seg Neutrophils # Man 15.6 H Lymphocytes # (Manual) 0.2 L PT INR ABG pH ABG pO2 ABG HCO3 ABG O2 Saturation ABG Base Excess ABG Hemoglobin Oxyhemoglobin Sodium 132 L Potassium Chloride 95.0 L Carbon Dioxide BUN 22 H Creatinine < 0.2 L Glucose 122 H POC Glucose 123 H Calcium Phosphorus Magnesium Total Creatine Kinase CK-MB (CK-2) Rel Index Troponin T C-Reactive Protein 31.20 H Total Protein Albumin LDL Cholesterol Direct Urine WBC (Auto) Crossmatch 05/17/22 05/17/22 05/18/22 07:53 21:03 05:41 WBC 15.0 H RBC 2.58 L Hgb 7.1 L Hct 22.3 L MCV MCHC RDW 16.1 H Plt Count Lymph % (Auto) [place] % (Auto) Lymph # (Auto) [place] # (Auto) Seg Neutrophils % Seg Neuts % (Manual) Lymphocytes % (Manual) Seg Neutrophils # Seg Neutrophils # Man Lymphocytes # (Manual) PT INR ABG pH ABG pO2 ABG HCO3 ABG O2 Saturation ABG Base Excess ABG Hemoglobin Oxyhemoglobin Sodium Potassium Chloride Carbon Dioxide BUN Creatinine Glucose POC Glucose 106 H 123 H Calcium Phosphorus Magnesium Total Creatine Kinase CK-MB (CK-2) Rel Index Troponin T C-Reactive Protein Total Protein Albumin LDL Cholesterol Direct Urine WBC (Auto) Crossmatch 05/18/22 05/18/22 05/18/22 05:41 13:56 21:08 WBC RBC Hgb Hct MCV MCHC RDW Plt Count Lymph % (Auto) [place] % (Auto) Lymph # (Auto) [place] # (Auto) Seg Neutrophils % Seg Neuts % (Manual) Lymphocytes % (Manual) Seg Neutrophils # Seg Neutrophils # Man Lymphocytes # (Manual) PT INR ABG pH ABG pO2 ABG HCO3 ABG O2 Saturation ABG Base Excess ABG Hemoglobin Oxyhemoglobin Sodium Potassium Chloride 97.9 L Carbon Dioxide BUN 23 H Creatinine < 0.2 L Glucose 128 H POC Glucose 137 H Calcium Phosphorus Magnesium Total Creatine Kinase CK-MB (CK-2) Rel Index Troponin T C-Reactive Protein Total Protein Albumin LDL Cholesterol Direct Urine WBC (Auto) Crossmatch See Detail 05/18/22 05/19/22 23:21 06:10 WBC 13.5 H RBC 2.53 L Hgb 7.2 L Hct 21.5 L MCV MCHC RDW 16.4 H Plt Count Lymph % (Auto) [place] % (Auto) Lymph # (Auto) [place] # (Auto) Seg Neutrophils % Seg Neuts % (Manual) Lymphocytes % (Manual) Seg Neutrophils # Seg Neutrophils # Man Lymphocytes # (Manual) PT INR ABG pH ABG pO2 70.5 L ABG HCO3 30.3 H ABG O2 Saturation ABG Base Excess 4.9 H ABG Hemoglobin 5.9 L Oxyhemoglobin Sodium Potassium Chloride Carbon Dioxide BUN Creatinine Glucose POC Glucose Calcium Phosphorus Magnesium Total Creatine Kinase CK-MB (CK-2) Rel Index Troponin T C-Reactive Protein Total Protein Albumin LDL Cholesterol Direct Urine WBC (Auto) Crossmatch Allied health notes reviewed: RT
--- NOTE | 2022-05-19 19:25 | Progress Note ---
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, recently hospitalized at [facility] admitted for acute hypoxemic respiratory failure 2/2 pneumonia Neuro: h/o ALS -s/p precedex, fentanyl gtt -Reorientation as needed -Maintain sleep-wake cycle -As needed analgesia -CT head with no acute intracranial process -Per family patient is nonverbal at baseline but responsive -Seroquel Cardiac: Suspect ischemic coronary artery disease, ST, h/o cardiomyopathy -Cardiology consulted, appreciate recommendations -continue conservative management -Blood pressure monitoring per protocol -s/p Vasopressor support with Levophed -Echocardiogram shows ejection fraction of 40 to 45%, mild global hypokinesis of left ventricle -Nitro patch, BB Respiratory: Acute hypoxic respiratory failure -CCM consulted, appreciate recommendations -Intubated on 04/02 with a 7.50 ETT attempt at the lips -s/p trach on 04/14 and s/p bronch on 04/15 -A.m. vent settings: PRVC Rate 14, TV 500, Rate 21, FiO2 55% -See RT notes for titration -SCpo patch -VAP bundle -SPO2 monitoring GI: Moderate protein calorie malnutrition -24 hours + 217 mL -PPI -Peg 04/14 -NTR consulted for tube feedings -BR: Senokot/colace, MiraLAX : Metabolic Alkalosis -Record intake and output -Renally dose medications -Avoid nephrotoxic medications -Bladder scan q 8 hours -trend BMP ID: Sepsis, Acute Bronchopneumonia, HAP (Pseudomonas and Enterobacter tracheal aspirate), blood culture with bacillus species, Stage 4 sacra ulcer -Infectious disease. wcon, and general surgery consulted, appreciate recommendation-> signed off -Per infectious disease patient was recently admitted to [facility] but discharged home with home hospice and not giving antibiotics -04/15 Tracheal aspirate with Pseudomonas aeruginosa, Enterobacter aerogenes -04/02 blood culture with bacillus species, 04/05 blood culture NGTD -MRSA (-) -s/p cefepime for 14 days -Currently on Meropenum and vanco -05/19 s/p wound debridement, mesh placement to wound bed and wound vac placement -Dressing changes per RN -Monitor WBC and temperature curve Endo: NAD -Avoid hypoglycemia -SSI -Accu-Cheks q 6 Heme: Leukocytosis -Heparin subq -Trend CBC -s/p 1 unit prbc -Transfuse hemoglobin less than 7 -SCDs to BLE while in bed Advance Care Planning - Disease education, care plan, diagnoses, and prognosis were discussed patient's , Carly Lopez, and patient daughter, Kaylee Warren, who translated for #[phone]. They reported that patient was following at [facility] for his ALS and during recent hospitalization at [facility] they were told nothing else can be offered to patient at this time and patient was discharge home with home hospice and PO morphine. First hospice visit was on , 04/01 however, patient became unresponsive 04/02 and they brought in to the hospital. - Goal of care and code status were also addressed at that time. Family wants to wait for a couple days to see how patient respond to current treatment before making a decision. All questions and concerns were addressed at this time. Patient family acknowledged understanding and agreement with care plan. -Patient remains a FULL CODE status. -04/05: Discussion at bedside with interpreting service with Dr. Valdivia and family state they would discuss next steps amongst themselves and let healthcare team know of decisions -04/06: extensive discussion with family ( and son) with Dr. Grayson regarding goals of care -04/08: Extensive discussion with with the use of drive man line regarding goals of care; no decision made. Possible consult to surgery for trach/PEG early next week. -04/09: Discussion with and her sister with Dr. Grayson and then with Dr. Pineda-> Consulted surgery for trach/peg -04/30 Insurance Denied LTAC, plan for possible SNF placement now. Case management to arrange -Family declined SNF -Awaiting discharge home with ventilator setup for home care due to need for ventilation secondary to trachestomy The high probability of a clinically significant, sudden or life threatening deterioration of the [resp] system(s) required my full and direct attention, intervention and personal management. The aggregate critical care time was [60] minutes. 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 Work-up in the emergency department revealed leukocytosis, elevated troponin and hyponatremia and CXR revealed moderate to large pleural effusion on the right. Patient was having agonal breathing in the emergency department and was intubated. Patient was admitted to the hospitalist service with consults to [facility], cardiology and infectious disease for further work-up. Hospital Course to Date: 04/03: Intubated and Sedated on versed gtt, RASS-5. CT head/brain noted with no acute intracranial abnormality. Plan to initiated precededx gtt and wean off versed for a RASS goal of 0 to -2. CT chect also reviewed, findings are most consistent with acute bronchopneumonia. Continue empiric IV Abx, vent adjustment per [facility]. ID consulted. Continue to F/U on cultures. Titrate pressor for MAP above 65. Medical records requested from [facility]. 04/04: Remains stable on the vent, easily arousable on precedex gtt, not following commands. Plan for SAT/SBT today. PRN analgesia for CPOT greater than 3. Fevers improved, cultures and procal pending. Continue current IV abx, ID also consulted. Remains on low dose pressors, titrate pressors for a MAP above 65. 04/05: Long discussion with family with use of translation phone with [facility] regarding goals of care. Family to have meeting amongst themselves and informed care team of decisions. Fentanyl drip added for respiratory distress. Remains on Precedex drip. Antibiotics per ID. Given 2L NS bolus with levophed gtt 04/06: Family discussion with Dr. Grayson for goals of care. CXR shows possible mucus plug, continue CPT as FiO2 is being able to be weaned. Potassium repleted. Weaning fentnyl gtt. 04/07: Ultrasound guided thoracentesis today scheduled, inadequate amount of pleural effusion on so not completed. Patient was started on Levophed overnight which was weaned off this morning however had to be started twice a day. Remains on fentanyl and Precedex. Cardiology discontinued BB and ACEi in setting of hypotension. 04/08: COVID-19 PCR negative. Routine EEG ordered by cardiology which showed ST changes, cardiology aware. They will continue conservative treatment. Repeat troponins 0.030 which are less than admit of 0.048. Dr. Grayson had a long discussion with with the use of drive man today at bedside and has not made a decision regarding goals of care. Possible consult to surgery for trach/PEG early next week. Continues to require Precedex and fentanyl drip for sedation. Carvedilol/lisinopril discontinued as patient is continuously on Levophed. 04/09: No acute events reported overnight, remains on fentanyl, Precedex and Levophed drips. Dr. Grayson and Dr. Pineda updated family at bedside extensively today. Consulted surgery for trach/PEG. COVID-19 PCR negative. 04/10: Patient noted to have desaturation episodes, FiO2 increased slightly to 35%. Will add Mucomyst. Remains on fentanyl and Precedex. Off of Levophed. Surgery consulted for trach/PEG. 04/11: FiO2 increased over night likely related to hypoxia, continues on fent gtt, weaning precedex gtt as he is also on Seroquel. Will d/w CCM re scheduled or p rn oxycodone 04/12: Periods of hypoxia and tachycardia this am. Symptoms improved post deep suction and tracheal lavage, Repeat CXR noted with no significant change. Continue CPT and mucomyst. Plan for possible trach/PEG tomorrow by general surgery. 04/13: Remains stable on the vent. Patient is wake and tracking but does not follow simple commands. No report of hypoxia from overnight, continue CPT and mucomyst. Plan for track and PEG today by General Surgery. Plan for LTAC placement post procedure, case management to arrange. 04/14: VIRGILIO overnight, Trach and PEG postponed for today by general surgery. Plan for LTAC placement post procedure, case management to arrange. 04/15: S/p Trach and PEG. Up to 80% FiO2 this am, this am CXR noted suggesting possible mucus plug. D/W CCM plan for bronch today. Continue CPT and mucomyst. Plan of care thoroughly discussed with patient's and son (who translated for ) at the bedside. Per , solar energy consultant and designer had already discussed the risks and benefits of the procedure yesterday. She verbalized understanding and agreed with procedure and current care plan, consent signed. Okay to use PEG-tube for meds this am, resume TF once okay by general Surgery. Case management to arrange LTAC placement. 04/16: s/p Bronchocopy by CCM. FiO2 down to 60%, angela 10 this am. This am CXR with moderate improvement. Continue CPT and mucomyst, wean Fio2 as tolerated for SPO2 above 92%. Patient is tolerating TF, advance to goal as ordered. Possible LTAC placement, case management to arrange. 04/17: VIRGILIO overnight. remains stable on the vent, recent CXR and this am ABG noted. Continue CPT and mucomyst, wean Fio2 as tolerated. 04/18: Remains stable on the vent, Fio2 down to 55% and peep of 8 this am. Continue to wean as tolerated, CPT, and mucomyst. Dsiposition- LTAC placement, case management to arrange. 04/19: No acute events overnight. Continue current management. 04/20: No acute events overnight, continue current management 04/21: Patient had chest ultrasound which showed trace pleural effusions, chest x-ray improved after the addition of Mucomyst yesterday. FiO2 55-65%. No acute events overnight. more interactive today. 04/22: Seroquel changed to BID, FiO2 was increased to 60%. RT increased FIO2 to 100 d/t desaturation into the 80s but was able to wean down. CCM increased PEEP and decreased FiO2. 04/23: CCM increase PEEP, no acute events reported overnight. 04/24: Spoke to RT about decreasing FiO2 as tolerated. No acute events reported overnight. Continue supportive management. 04/25: Weaning as tolerated. no acute events overnight. RT to attempt CPAP again today 04/26: VIRGILIO overnight. Patient failed PSV trial again this morning. Continue supportive management and daily PST trial. 04/27: Patient failed PSV trial again this am due to episodes of apnea. Continue daily PSV trial as tolerated. Case management to arrange LTAC placement 04/28: Remains stable. Continue daily PSV trial as tolerated. Awaiting approval for LTAC 04/29: VIRGILIO overnight. Continue daily PSV trial. Awaiting approval for LTAC, case management to arrange. 04/30: Patient continue to fail PSV trial. Per case management patient was denied for LTAC, now possible SNF placement. Case managemen to arrange. Continue supportive measures and daily PSV trial as tolerated. 05/01: VIRGILIO overnight. Continue supportive measures and daily PSV trial as tolerated. Possible SNF placement. 05/02: Continue supportive measures and daily PSV trial as tolerated. Possible SNF placement, case management to arrange 05/03: no acute events overnight, CM arranging home vent setup. Family declined SNF. 05/04: RN/RT reports thin secretions, increase in FiO2 for decreased oxygen on ABG. No acute events overnight. 05/05: Family scheduled for teaching session today at 2pm. Increase in FiO2 overnight to 45%. Awaiting vent setup for home care for ventilation secondary to tracheostomy. 05/06: No acute events reported overnight, T-max 100.9. FiO2 45%. Awaiting discharge home with vent when teaching is completed 05/07: No acute events reported overnight, Awaiting discharge home with vent when teaching is completed 05/08: No acute events reported overnight, Awaiting discharge home with vent when teaching is completed 05/09: no acute events reported overnight. Ordered routine labs today. Family continuing with vent training. Anticipate discharge home this week possibly on Tuesday. 05/10: VIRGILIO overnight. Continue current supportive measures and family training at the bedside. Plan for discharge home tomorrow. 05/11: Discharge home today. 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 Patient desated on home vent at max setting. Home vent is not sufficient to support patient's ventilation need. D/w CCM, Dr. Valdivia, who recommend SNF placement at this time. Patient's family notified at the bedside. All questions and concerns were address at this time. Further discussion on alternative placement to be determine and discussed with patient's family and case management today. The respiratory therapist from [facility] is schedule to come at 1400 today for further assessment. 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; WOCN consult placed 05-18 ID and gen surg consult 05/19: s/p sacral wound debridement with Dr. Jerome with wound vac and mesh placement. Per Dr. Jerome patient will need to either stay in the hospital 1 week to be taken back to the OR for removal of mesh on wound or may be discharged but will have to visit the wound clinic in 2 weeks. We will alert child support case officer. No acute events overnight. Hospitalist Physical - Constitutional Vitals: Temp Pulse Resp BP Pulse Ox 99.3 F 92 H 24 110/65 100 05/19/22 16:00 05/19/22 18:02 05/19/22 16:00 05/19/22 18:02 05/19/22 18:02 General appearance: Present: no acute distress, cachectic, other (trach/) HEART Score - HEART Score Troponin: Troponin T 0.031 ng/mL (0.00-0.029) H 04/08/22 17:47 Results - Labs CBC & Chem 7: 05/18/22 23:21 05/18/22 05:41 Labs: Laboratory Last Values WBC 13.5 K/mm3 (4.5-11.0) H 05/18/22 23:21 RBC 2.53 M/mm3 (3.65-5.03) L 05/18/22 23:21 Hgb 7.2 gm/dl (11.8-15.2) L 05/18/22 23:21 Hct 21.5 % (35.5-45.6) L 05/18/22 23:21 MCV 85 fl (84-94) 05/18/22 23:21 MCH 29 pg (28-32) 05/18/22 23:21 MCHC 34 % (32-34) 05/18/22 23:21 RDW 16.4 % (13.2-15.2) H 05/18/22 23:21 Plt Count 321 K/mm3 (140-440) 05/18/22 23:21 Lymph % (Auto) 8.1 % (13.4-35.0) L 05/09/22 15:15 [place] % (Auto) 4.9 % (0.0-7.3) 05/09/22 15:15 Eos % (Auto) 0.6 % (0.0-4.3) 05/09/22 15:15 Baso % (Auto) 0.3 % (0.0-1.8) 05/09/22 15:15 Lymph # (Auto) 0.9 K/mm3 (1.2-5.4) L 05/09/22 15:15 [place] # (Auto) 0.5 K/mm3 (0.0-0.8) 05/09/22 15:15 Eos # (Auto) 0.1 K/mm3 (0.0-0.4) 05/09/22 15:15 Baso # (Auto) 0.0 K/mm3 (0.0-0.1) 05/09/22 15:15 Add Manual Diff Complete 05/17/22 03:41 Total Counted 100 05/17/22 03:41 Seg Neutrophils % Manufacturing Intern 05/17/22 03:41 Seg Neuts % (Manual) 96.0 % (40.0-70.0) H 05/17/22 03:41 Band Neutrophils % 0 % 05/17/22 03:41 Lymphocytes % (Manual) 1.0 % (13.4-35.0) L 05/17/22 03:41 Reactive Lymphs % (Man) 0 % 05/17/22 03:41 Monocytes % (Manual) 3.0 % (0.0-7.3) 05/17/22 03:41 Eosinophils % (Manual) 0 % (0.0-4.3) 05/17/22 03:41 Basophils % (Manual) 0 % (0.0-1.8) 05/17/22 03:41 Metamyelocytes % 0 % 05/17/22 03:41 Myelocytes % 0 % 05/17/22 03:41 Promyelocytes % 0 % 05/17/22 03:41 Blast Cells % 0 % 05/17/22 03:41 Nucleated RBC % Not Reportable 05/17/22 03:41 Seg Neutrophils # 9.2 K/mm3 (1.8-7.7) H 05/09/22 15:15 Seg Neutrophils # Man 15.6 K/mm3 (1.8-7.7) H 05/17/22 03:41 Band Neutrophils # 0.0 K/mm3 05/17/22 03:41 Lymphocytes # (Manual) 0.2 K/mm3 (1.2-5.4) L 05/17/22 03:41 Abs React Lymphs (Man) 0.0 K/mm3 05/17/22 03:41 Monocytes # (Manual) 0.5 K/mm3 (0.0-0.8) 05/17/22 03:41 Eosinophils # (Manual) 0.0 K/mm3 (0.0-0.4) 05/17/22 03:41 Basophils # (Manual) 0.0 K/mm3 (0.0-0.1) 05/17/22 03:41 Metamyelocytes # 0.0 K/mm3 05/17/22 03:41 Myelocytes # 0.0 K/mm3 05/17/22 03:41 Promyelocytes # 0.0 K/mm3 05/17/22 03:41 Blast Cells # 0.0 K/mm3 05/17/22 03:41 WBC Morphology Not Reportable 05/17/22 03:41 Hypersegmented Neuts Not Reportable 05/17/22 03:41 Hyposegmented Neuts Not Reportable 05/17/22 03:41 Hypogranular Neuts Not Reportable 05/17/22 03:41 Smudge Cells Not Reportable 05/17/22 03:41 Toxic Granulation Not Reportable 05/17/22 03:41 Toxic Vacuolation Not Reportable 05/17/22 03:41 Dohle Bodies Not Reportable 05/17/22 03:41 Pelger-Huet Anomaly Not Reportable 05/17/22 03:41 Terry Rods Not Reportable 05/17/22 03:41 Platelet Estimate Consistent w auto 05/17/22 03:41 Clumped Platelets Not Reportable 05/17/22 03:41 Plt Clumps, EDTA Not Reportable 05/17/22 03:41 Large Platelets Not Reportable 05/17/22 03:41 Giant Platelets Not Reportable 05/17/22 03:41 Platelet Satelliting Not Reportable 05/17/22 03:41 Plt Morphology Comment Not Reportable 05/17/22 03:41 RBC Morphology Not Reportable 05/17/22 03:41 Dimorphic RBCs Not Reportable 05/17/22 03:41 Polychromasia Not Reportable 05/17/22 03:41 Hypochromasia Not Reportable 05/17/22 03:41 Poikilocytosis Not Reportable 05/17/22 03:41 Anisocytosis 1+ 05/17/22 03:41 Microcytosis Not Reportable 05/17/22 03:41 Macrocytosis Not Reportable 05/17/22 03:41 Spherocytes Not Reportable 05/17/22 03:41 Pappenheimer Bodies Not Reportable 05/17/22 03:41 Sickle Cells Not Reportable 05/17/22 03:41 Target Cells Not Reportable 05/17/22 03:41 Tear Drop Cells Not Reportable 05/17/22 03:41 Ovalocytes Not Reportable 05/17/22 03:41 Helmet Cells Not Reportable 05/17/22 03:41 Patricio-Bonnie Bodies Not Reportable 05/17/22 03:41 Dinuba Rings Not Reportable 05/17/22 03:41 Cheikh Cells Not Reportable 05/17/22 03:41 Bite Cells Not Reportable 05/17/22 03:41 Crenated Cell Not Reportable 05/17/22 03:41 Elliptocytes Not Reportable 05/17/22 03:41 Acanthocytes (Spur) Not Reportable 05/17/22 03:41 Rouleaux Not Reportable 05/17/22 03:41 Hemoglobin C Crystals Not Reportable 05/17/22 03:41 Schistocytes Not Reportable 05/17/22 03:41 Malaria parasites Not Reportable 05/17/22 03:41 Denton Bodies Not Reportable 05/17/22 03:41 Hem Pathologist Commnt No 05/17/22 03:41 PT 13.6 Sec. (12.2-14.9) 04/13/22 04:30 INR 0.94 (0.87-1.13) 04/13/22 04:30 APTT 35.7 Sec. (24.2-36.6) 04/07/22 03:51 ABG pH 7.385 pH Units (7.350-7.450) 05/19/22 06:10 ABG pCO2 51.9 mm Hg 05/19/22 06:10 ABG pO2 70.5 mm Hg (80.0-90.0) L 05/19/22 06:10 ABG HCO3 30.3 mmol/L (20.0-26.0) H 05/19/22 06:10 ABG O2 Saturation 97.6 % (95.0-99.0) 05/19/22 06:10 ABG O2 Content 8.1 (0.0-44) 05/19/22 06:10 ABG Base Excess 4.9 mmol/L (-2.0-3.0) H 05/19/22 06:10 ABG Hemoglobin 5.9 gm/dl (14.0-18.0) L 05/19/22 06:10 ABG Carboxyhemoglobin 1.5 % (0.0-5.0) 05/19/22 06:10 ABG Methemoglobin 0.4 % (0.0-1.5) 05/19/22 06:10 Oxyhemoglobin 95.8 % (95.0-99.0) 05/19/22 06:10 FiO2 55 % 05/19/22 06:10 Sodium 137 mmol/L (137-145) 05/18/22 05:41 Potassium 4.5 mmol/L (3.6-5.0) D 05/18/22 05:41 Chloride 97.9 mmol/L (98-107) L 05/18/22 05:41 Carbon Dioxide 30 mmol/L (22-30) 05/18/22 05:41 Anion Gap 14 mmol/L 05/18/22 05:41 BUN 23 mg/dL (9-20) H 05/18/22 05:41 Creatinine < 0.2 mg/dL (0.8-1.3) L 05/18/22 05:41 Estimated GFR > 60 ml/min 05/18/22 05:41 BUN/Creatinine Ratio 115 % 05/18/22 05:41 Glucose 128 mg/dL (75-100) H 05/18/22 05:41 POC Glucose 98 mg/dL (70-105) 05/19/22 14:52 Lactic Acid 1.90 mmol/L (0.7-2.0) 04/02/22 19:39 Calcium 8.5 mg/dL (8.4-10.2) 05/18/22 05:41 Phosphorus 2.80 mg/dL (2.5-4.5) 05/17/22 03:41 Magnesium 1.70 mg/dL (1.7-2.3) 05/17/22 03:41 Total Bilirubin 0.80 mg/dL (0.1-1.2) 04/02/22 19:39 AST 15 units/L (5-40) 04/02/22 19:39 ALT 9 units/L (7-56) 04/02/22 19:39 Alkaline Phosphatase 43 units/L (35-129) 04/02/22 19:39 Total Creatine Kinase 46 units/L (55-170) L 04/08/22 17:47 CK-MB (CK-2) 2.6 ng/mL (0.0-4.0) 04/08/22 17:47 CK-MB (CK-2) Rel Index 5.6 (0-4) H 04/08/22 17:47 Troponin T 0.031 ng/mL (0.00-0.029) H 04/08/22 17:47 C-Reactive Protein 31.20 mg/dL (0.00-1.30) H 05/17/22 03:41 Total Protein 4.6 g/dL (6.3-8.2) L 04/02/22 19:39 Albumin 2.7 g/dL (3.9-5) L 04/02/22 19:39 Albumin/Globulin Ratio 1.4 % 04/02/22 19:39 Triglycerides 80 mg/dL (2-149) 04/02/22 19:39 Cholesterol 94 mg/dL (50-199) 04/02/22 19:39 LDL Cholesterol Direct 27 mg/dL (50-130) L 04/02/22 19:39 HDL Cholesterol 47 mg/dL (40-59) 04/02/22 19:39 Cholesterol/HDL Ratio 2.00 % 04/02/22 19:39 Procalcitonin 1.30 ng/mL (<0.15) 05/17/22 03:41 Urine Color Aracely (Yellow) 05/18/22 03:50 Urine Turbidity Clear (Clear) 05/18/22 03:50 Urine pH 5.0 (5.0-7.0) 05/18/22 03:50 Ur Specific [place] 1.030 (1.003-1.030) 05/18/22 03:50 Urine Protein 30 mg/dl mg/dL (Negative) 05/18/22 03:50 Urine Glucose (UA) Neg mg/dL (Negative) 05/18/22 03:50 Urine Ketones Tr mg/dL (Negative) 05/18/22 03:50 Urine Blood Neg (Negative) 05/18/22 03:50 Urine Nitrite Neg (Negative) 05/18/22 03:50 Urine Bilirubin Neg (Negative) 05/18/22 03:50 Urine Urobilinogen < 2.0 mg/dL (<2.0) 05/18/22 03:50 Ur Leukocyte Esterase Neg (Negative) 05/18/22 03:50 Urine WBC (Auto) 1.0 /HPF (0.0-6.0) 05/18/22 03:50 Urine RBC (Auto) 1.0 /HPF (0.0-6.0) 05/18/22 03:50 U Epithel Cells (Auto) 2.0 /HPF (0-13.0) 05/18/22 03:50 Urine Bacteria (Auto) 1+ /HPF (Negative) 05/18/22 03:50 Hyaline Casts 1 /LPF 04/05/22 17:45 Urine Mucus Few /HPF 05/18/22 03:50 Nasal Screen MRSA (PCR) Negative (Negative) 04/05/22 12:37 Vancomycin Trough 6.0 ug/mL (5.0-20.0) 04/05/22 18:53 Coronavirus (PCR) Negative (Negative) 04/07/22 14:52 Blood Type O POSITIVE 05/18/22 13:56 Antibody Screen Negative 05/18/22 13:56 Crossmatch See Detail 05/18/22 13:56 Microbiology: Microbiology 05/17/22 17:04 Peripheral/Venous Blood Culture - Preliminary NO GROWTH AFTER 48 HOURS 05/17/22 17:04 Peripheral/Venous Blood Culture - Preliminary NO GROWTH AFTER 48 HOURS 05/15/22 04:52 Peripheral/Venous Blood Culture - Preliminary NO GROWTH AFTER 4 DAYS 05/15/22 04:24 Peripheral/Venous Blood Culture - Preliminary NO GROWTH AFTER 4 DAYS 05/17/22 15:10 Sputum - Endotracheal Wash Sputum Culture - Preliminary Gram Negative Deejay Gram Negative Deejay#2 Perez/IV: Voiding Method Condom Catheter Active Medications - Current Medications Current Medications: Generic Name Dose Route Start Last Admin Trade Name Freq PRN Reason Stop Dose Admin Acetaminophen 650 mg 04/02/22 23:53 05/18/22 09:01 Acetaminophen 325 Mg Tab PO 650 mg Q6H PRN Administration Pain MILD(1-3)/Fever >100.5/FAITH Acetylcysteine 200 mg 05/04/22 20:00 05/19/22 08:59 Acetylcysteine 20% 200 Mg/1 Ml *For Inhalation Use* INHALATION Not Given Q12HRT SEGUNDO Albuterol 2.5 mg 05/05/22 20:00 05/19/22 08:59 Albuterol 2.5 Mg/3 Ml Nebu IH 2.5 mg Q12HRT SEGUNDO Administration Baclofen 10 mg 05/19/22 20:00 Baclofen 10 Mg Tab PO TID SEGUNDO Bisacodyl 10 mg 04/07/22 09:44 04/12/22 10:06 Bisacodyl 10 Mg Rect Supp W[place] 10 mg QDAY PRN Administration Constipation Docusate Sodium 100 mg 05/18/22 22:00 05/19/22 10:39 Docusate Sodium 100 Mg/10 Ml Oral Liqd FEEDTUBE Not Given BID [facility] Famotidine 20 mg 04/06/22 10:00 05/19/22 10:39 Famotidine 20 Mg Tab FEEDTUBE 20 mg BID SEGUNDO Administration Fentanyl 50 mcg 04/04/22 15:56 05/19/22 05:58 Fentanyl 100 Mcg/2 Ml Inj IV 50 mcg Q2HR PRN Administration For CPOT of greater than 3 Heparin Sodium (Porcine) 5,000 unit 04/03/22 06:00 05/19/22 16:52 Heparin 5,000 Unit/1 Ml Vial SUB-Q Not Given Q8HR [facility] Vancomycin HCl 1 gm in 250 mls @ 167.007 mls/hr 05/17/22 22:00 05/19/22 10:39 Vancomycin/Ns 1 Gm/250 Ml IV 167 mls/hr Q12H SEGUNDO Administration Meropenem 500 mg in 50 mls @ 50 mls/hr 05/18/22 14:00 05/19/22 13:45 Merrem/Ns 500 Mg/50 Ml IV 50 mls/hr Q8H SEGUNDO Administration Insulin Human Lispro 0 unit 05/05/22 06:00 05/19/22 16:52 Insulin Lispro 100 Unit/Ml SUB-Q Not Given Q8HR [facility] Protocol Magnesium Hydroxide 30 ml 04/02/22 23:53 Magnesium Hydroxide (Mom) Oral Liqd Udc PO Q4H PRN Constipation Metoprolol Tartrate 12.5 mg 05/03/22 13:00 05/19/22 16:51 Metoprolol Tartrate 25 Mg Tab FEEDTUBE Not Given Q6HR [facility] [facility] Ondansetron HCl 4 mg 04/02/22 23:53 Ondansetron 4 Mg/2 Ml Inj IV Q8H PRN Nausea And Vomiting Polyethylene Glycol 17 gm 05/18/22 15:00 05/19/22 10:40 Polyethylene Glycol 3350 17 Gm Powder FEEDTUBE Not Given QDAY [facility] Quetiapine Fumarate 50 mg 05/13/22 11:00 05/19/22 10:39 Quetiapine 100 Mg Tab FEEDTUBE 50 mg BID SEGUNDO Administration Scopolamine 1 each 05/12/22 09:00 05/18/22 09:03 Scopolamine Transdermal Patch 72 Hr TD 1 each Q3D SEGUNDO Administration Senna 8.8 mg 05/18/22 22:00 05/18/22 22:14 Sennosides Oral Liqd 8.8 Mg/5 Ml Oral Liqd FEEDTUBE Not Given QHS SEGUNDO Sodium Chloride 10 ml 04/03/22 10:00 05/19/22 10:40 Sodium Chloride 0.9% 10 Ml Flush Syringe IV 10 ml BID SEGUNDO Administration Sodium Chloride 10 ml 04/02/22 23:53 05/16/22 05:10 Sodium Chloride 0.9% 10 Ml Flush Syringe IV 10 ml PRN PRN Administration LINE FLUSH Nutrition/Malnutrition Assess - Dietary Evaluation Nutrition/Malnutrition Findings: Nutrition Notes Start: 04/04/22 13:13 Freq: Status: Active Protocol: Document 05/19/22 12:24 COLLEEN (Rec: 05/19/22 12:48 COLLEEN [id number]) Nutrition Notes Initial or Follow up Brief Note Current Diagnosis Coronary Artery Disease, Decubitus(Pressure Ulcer), Sepsis,Respiratory Failure, Malnutrition Other Pertinent Diagnosis HCAP, ALS, Broncopneumonia, NSTEMI, Cardiomyopathy, ... Current Diet NPO (05/19 00:01). Labs/Tests 05/18: Cl 97.9, BUN 23, Crea < 0.2, Glu 128. Pertinent Medications 05/19: Nutritionally unremarkable. Height 5 ft 4.8 in Weight 48.6 kg Tyler Body Weight (kg) 61.27 BMI 17.9 Weight change and time frame 0.2 Kg body weight gain 2 days ago and no further changes reported. Weight Status Underweight Subjective/Other Information RD consult for routine F/U on TF tolerance/continuation. Pt currently on NPO due to ongoing procedure; debridement of decubitus sacral wound. TF will resume after that, according to Progress notes. TF advanced as prescribed, and well tolerated, according to RN notes. Pt continues on Mechanical ventilation, O2 saturation @ 96%, according to Physical Assessment Histroy notes. Discharge home was cancelled on 05/11; HomeVent is not sufficient for Pt's needs, MD recommends SNF, but family will think about, according to Progress notes. Percent of energy/protein needs met: Prescribed TF-Osmolite 1.5 Inderjit @ 55 ml/hr provides for energy/protein needs (1,980 Kcal/83 g) during LOS, 102% Kcal; 100% AA. Burn Absent Trauma Absent GI Symptoms Constipation Difficulty In Swallowing,Chewing Food Allergy No Skin Integrity/Comment Sacral open wound. Current % PO Other Minimum of two criteria No #1 Nutrition Diagnosis Inadequate oral intake Diagnosis Progress(for reassessment Continues documentation) Is patient on ventilator? Yes Is Patient Ambulatory and/or Out of Bed No REE-([facility]-confined to bed) [phone] Kcal/Kg value to use for calculation 40 Approximate Energy Requirements Using 1944 kcal/Kg Calculation Used for Recommendations Kcal/kg Additional Notes Protein: 1.5-2 g/Kg ABW; 73-98 g/day. Fluids: 1 ml/Kcal, or as per MD. Nutrition Intervention Nutrition Support: When pertinent, resume TF- Osmolite 1.5 Inderjit @ 55 ml/hr. Flush: 150 ml water Q 4 hr, or as per MD. Kcal 1,980 Protein (gm) 83 Carbohydrates (gm) 269 Fat (gm) 65 Fluid (mL) 1,006 Fiber (gm) 0 % RDI: 102% Kcal; 100% AA. Goal #1 Provide at least 75% of energy /protein needs through Enteral Feeding during LOS. Follow-Up By: 05/20/22 Additional Comments Continue monitoring TF tolerance and BM.
[2022-05-19] MEDS: BACLOFEN 10 MG TAB PO SCH (21:17)
[2022-05-19] MEDS: SENNOSIDES ORAL LIQD 8.8 MG/5 ML ORAL LIQD FEEDTUBE SCH (21:18)
[2022-05-20] MEDS: METOPROLOL TARTRATE 25 MG TAB FEEDTUBE SCH ×5 (00:52→18:12)
[2022-05-20] MEDS: INSULIN LISPRO 100 UNIT/ML SUB-Q SCH ×4 (00:53→22:06)
[2022-05-20 05:53] LABS: Hematocrit 22.2 % (35.5-45.6); Hemoglobin 7.1 gm/dl (11.8-15.2); Mean Corpuscular HGB Conc 32 % (32-34); Mean Corpuscular Volume 86 fl (84-94); Platelet Count 303 K/mm3 (140-440); Red Blood Count 2.57 M/mm3 (3.65-5.03); Red Cell Distribution Width 16.3 % (13.2-15.2)
[2022-05-20 06:09] LABS: Blood Urea Nitrogen 18 mg/dL (9-20); Calcium 8.1 mg/dL (8.4-10.2); Hemolysis Index 3
[2022-05-20 06:10] LABS: BUN/Creatinine Ratio 90
[2022-05-20] MEDS: HEPARIN 5,000 UNIT/1 ML VIAL SUB-Q SCH ×3 (07:13→21:17)
[2022-05-20] MEDS: MEROPENEM/NS 500 MG/50 ML 500 MG/50 ML BAG IV SCH ×3 (07:13→21:17)
[2022-05-20] MEDS: ALBUTEROL 2.5 MG/3 ML NEBU IH SCH ×2 (08:42→20:49)
[2022-05-20] MEDS: ACETYLCYSTEINE 20% 200 MG/1 ML *FOR INHALATION USE INHALATION SCH ×2 (08:43→20:49)
[2022-05-20] MEDS: QUEtiapine 100 MG TAB FEEDTUBE SCH ×2 (09:24→21:15)
[2022-05-20] MEDS: POLYETHYLENE GLYCOL 3350 17 GM POWDER FEEDTUBE SCH (09:24)
[2022-05-20] MEDS: BACLOFEN 10 MG TAB PO SCH ×3 (09:24→21:16)
[2022-05-20] MEDS: FAMOTIDINE 20 MG TAB FEEDTUBE SCH ×2 (09:24→21:15)
[2022-05-20] MEDS: DOCUSATE SODIUM 100 MG/10 ML ORAL LIQD FEEDTUBE SCH ×2 (09:24→21:16)
--- NOTE | 2022-05-20 10:02 | Progress Note ---
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 Protein calorie malnutrition Acute Bronchopneumonia HCAP Hypotension NSTEMI Hypernatremia Acute Metabolic Encephalopathy H/o Amyotrophic Lateral Sclerosis Nonverbal at Baseline Thrombocytopenia Protein Caloric Malnutrition Constipation - continue wound care per RN/WCN/Surgeon - continue family ventilator and patient care training - continue daily SAT and SBT assessment as tolerated while in hospital - continue to optimize nutritional status - continue care as below otherwise; - bronchoscopy if develops large volume atelectasis - continue mucomyst nebs for thick tenacious secretions - continue scheduled CPT - continue Seroquel for anxiolysis / delirium - continue bronchodilators with pulmonary hygiene per RT - continue to wean supplemental oxygen for target O2 sat's > 90% acutely - VAP bundle addressed - continue lung protective strategies - wean per pulmonary driven protocols otherwise - continue accuchecks with glycemic control per SSI (While critically ill target blood glucose of 140-180 mg/dL; avoid hypoglycemia) - sedation prn for target RASS 0 to -1 - avoid nephrotoxins, renally dose all medications - continue to avoid benzodiazepine's, reduce the possibility of delirium - AB's per ID rec's - prn analgesia per CPOT score - Maintenance of sleep-wake cycle, avoid delirium - continue enteral nutritional support at goal rate as tolerated - G.I. & VTE prophylaxis - PT/OT/ROM exercises - continue mobility protocols for pressure ulcer prophylaxis - Monitor hemodynamics closely - continue other care per attending / other consultants - discharge planning ongoing concurrently COVID SPECIFIC INTERVENTIONS - test negative .... Re-evaluate in am & prn CONDITION: CRITICAL PROGNOSIS: GUARDED CODE STATUS: FULL CODE The high probability of a clinically significant, sudden or life-threatening deterioration of the [respiratory, cardiovascular & neurologic] system(s) required my full and direct attention, intervention and personal management. The aggregate critical care time was [34] minutes without overlap. Time includes spent on; [x] Data Review and interpretation [x] Patient assessment and monitoring of vital signs [x] Documentation [x] Medication orders and management Subjective Date of service: 05/20/22 Principal diagnosis: Ac and ch hypercapnic and hypoxemic Resp Failure; ALS; HCAP; Sepsis; NSTEMI Interval history: Patient is seen today for: Acute and chronic hypercapnic and hypoxemic Respiratory Failure; ALS; HCAP; Sepsis; NSTEMI; AMS; Hypernatremia; Thr ombocytopenia; Protein Caloric Malnutrition; Constipation Seen and examined at bedside; 24hour events reviewed; nursing and respiratory care staff consulted; no adverse overnight events reported to me; resting peacefully in bed; remains on MVS; surgery evaluation ongoing re: decubitus wound and s/p debridement; family visiting; he is responsive; FiO2 at 50%; no emesis or overt aspiration; afebrile Objective Vital Signs - 12hr 05/19/22 05/20/22 05/20/22 23:00 00:00 00:25 Temperature 98.8 F Pulse Rate 96 H 93 H 91 H Pulse Rate [ 115 H From Monitor] Respiratory 14 15 Rate Blood Pressure 78/45 77/46 77/46 O2 Sat by Pulse 96 97 99 Oximetry O2 Sat by Pulse 99 Oximetry [ Assessment] 05/20/22 05/20/22 05/20/22 00:52 01:00 02:00 Temperature Pulse Rate 94 H 94 H 92 H Pulse Rate [ From Monitor] Respiratory 14 14 Rate Blood Pressure 77/46 79/47 84/49 O2 Sat by Pulse 99 Oximetry O2 Sat by Pulse Oximetry [ Assessment] 05/20/22 05/20/22 05/20/22 03:00 04:00 05:00 Temperature 99.1 F Pulse Rate 93 H 97 H 96 H Pulse Rate [ 115 H From Monitor] Respiratory 15 14 14 Rate Blood Pressure 81/48 86/50 88/53 O2 Sat by Pulse 100 99 100 Oximetry O2 Sat by Pulse Oximetry [ Assessment] 05/20/22 05/20/22 05/20/22 05:26 06:00 07:00 Temperature Pulse Rate 98 H 98 H 98 H Pulse Rate [ From Monitor] Respiratory 30 H 22 Rate Blood Pressure 88/53 89/55 88/57 O2 Sat by Pulse 100 99 Oximetry O2 Sat by Pulse Oximetry [ Assessment] 05/20/22 05/20/22 08:00 09:00 Temperature 99.4 F Pulse Rate 100 H 111 H Pulse Rate [ 107 H From Monitor] Respiratory 29 H 15 Rate Blood Pressure 95/54 94/66 O2 Sat by Pulse 98 95 Oximetry O2 Sat by Pulse Oximetry [ Assessment] Constitutional: no acute distress, alert, other (resting in bed without increased respiratory effort at rest) Eyes: non-icteric ENT: oropharynx moist, other (+ midline tracheostomy to home vent) Neck: supple, no lymphadenopathy, no JVD Effort: normal Ascultation: Bilateral: diminished breath sounds (bases) Percussion: Bilateral: not dull Cardiovascular: regular rate and rhythm, other (S1,S2) Gastrointestinal: normoactive bowel sounds, soft, non-tender, non-distended Integumentary: normal, decubitus ulcer (see wound care pictures) Extremities: no cyanosis, no edema, pink and warm, pulses normal Neurologic: pupils equal and round, other (functional quadriplegia) Psychiatric: mood appropriate, affect normal CBC and BMP: 05/20/22 04:40 05/20/22 04:40 ABG, PT/INR, D-dimer: ABG ABG pH 7.385 pH Units (7.350-7.450) 05/19/22 06:10 ABG pCO2 51.9 mm Hg 05/19/22 06:10 ABG pO2 70.5 mm Hg (80.0-90.0) L 05/19/22 06:10 ABG O2 Saturation 97.6 % (95.0-99.0) 05/19/22 06:10 PT/INR, D-dimer PT 13.6 Sec. (12.2-14.9) 04/13/22 04:30 INR 0.94 (0.87-1.13) 04/13/22 04:30 Abnormal lab findings: Abnormal Labs 04/02/22 04/02/22 04/02/22 19:39 19:39 19:39 WBC 14.3 H RBC Hgb Hct MCV 96 H MCHC RDW Plt Count 104 L Lymph % (Auto) [place] % (Auto) Lymph # (Auto) [place] # (Auto) Seg Neutrophils % Seg Neuts % (Manual) 94.0 H Lymphocytes % (Manual) 1.0 L Seg Neutrophils # Seg Neutrophils # Man 13.4 H Lymphocytes # (Manual) 0.1 L PT 15.9 H INR 1.14 H ABG pH ABG pO2 ABG HCO3 ABG O2 Saturation ABG Base Excess ABG Hemoglobin Oxyhemoglobin Sodium 151 H Potassium Chloride Carbon Dioxide BUN Creatinine 0.5 L Glucose POC Glucose Calcium 8.2 L Phosphorus Magnesium 1.60 L Total Creatine Kinase CK-MB (CK-2) Rel Index Troponin T 0.048 H C-Reactive Protein Total Protein 4.6 L Albumin 2.7 L LDL Cholesterol Direct 27 L Urine WBC (Auto) Crossmatch 04/02/22 04/03/22 04/03/22 19:42 05:14 06:30 WBC RBC Hgb Hct MCV MCHC RDW Plt Count Lymph % (Auto) [place] % (Auto) Lymph # (Auto) [place] # (Auto) Seg Neutrophils % Seg Neuts % (Manual) Lymphocytes % (Manual) Seg Neutrophils # Seg Neutrophils # Man Lymphocytes # (Manual) PT INR ABG pH 7.471 H 7.496 H ABG pO2 47.8 L 91.0 H ABG HCO3 30.6 H ABG O2 Saturation 94.4 L ABG Base Excess 6.2 H ABG Hemoglobin 11.0 L 12.8 L Oxyhemoglobin 93.1 L Sodium 149 H Potassium 3.4 L Chloride Carbon Dioxide BUN Creatinine 0.4 L Glucose POC Glucose Calcium Phosphorus Magnesium Total Creatine Kinase CK-MB (CK-2) Rel Index Troponin T C-Reactive Protein Total Protein Albumin LDL Cholesterol Direct Urine WBC (Auto) Crossmatch 04/04/22 04/04/22 04/04/22 04:18 04:18 05:50 WBC 11.8 H RBC Hgb Hct MCV MCHC RDW Plt Count 132 L Lymph % (Auto) [place] % (Auto) Lymph # (Auto) [place] # (Auto) Seg Neutrophils % Seg Neuts % (Manual) Lymphocytes % (Manual) Seg Neutrophils # Seg Neutrophils # Man Lymphocytes # (Manual) PT INR ABG pH 7.517 H ABG pO2 115.5 H ABG HCO3 29.9 H ABG O2 Saturation ABG Base Excess 6.7 H ABG Hemoglobin 12.3 L Oxyhemoglobin Sodium Potassium 3.5 L Chloride Carbon Dioxide 31 H BUN Creatinine 0.3 L Glucose 153 H POC Glucose Calcium Phosphorus 1.40 L Magnesium 1.50 L Total Creatine Kinase CK-MB (CK-2) Rel Index Troponin T C-Reactive Protein 31.60 H Total Protein Albumin LDL Cholesterol Direct Urine WBC (Auto) Crossmatch 04/05/22 04/05/22 04/05/22 02:50 05:25 11:28 WBC RBC Hgb Hct MCV MCHC RDW Plt Count Lymph % (Auto) [place] % (Auto) Lymph # (Auto) [place] # (Auto) Seg Neutrophils % Seg Neuts % (Manual) Lymphocytes % (Manual) Seg Neutrophils # Seg Neutrophils # Man Lymphocytes # (Manual) PT INR ABG pH 7.455 H ABG pO2 50.7 L ABG HCO3 30.5 H ABG O2 Saturation 89.4 L ABG Base Excess 5.9 H ABG Hemoglobin 11.8 L Oxyhemoglobin 88.2 L Sodium Potassium Chloride Carbon Dioxide 32 H BUN Creatinine 0.2 L Glucose 110 H POC Glucose 124 H Calcium 7.9 L Phosphorus Magnesium Total Creatine Kinase CK-MB (CK-2) Rel Index Troponin T C-Reactive Protein Total Protein Albumin LDL Cholesterol Direct Urine WBC (Auto) Crossmatch 04/05/22 04/05/22 04/06/22 17:45 Unknown 04:00 WBC RBC 3.55 L Hgb 11.1 L 11.5 L Hct 33.2 L 35.1 L MCV MCHC RDW Plt Count 113 L 114 L Lymph % (Auto) [place] % (Auto) Lymph # (Auto) [place] # (Auto) Seg Neutrophils % Seg Neuts % (Manual) Lymphocytes % (Manual) Seg Neutrophils # Seg Neutrophils # Man Lymphocytes # (Manual) PT INR ABG pH ABG pO2 ABG HCO3 ABG O2 Saturation ABG Base Excess ABG Hemoglobin Oxyhemoglobin Sodium Potassium Chloride Carbon Dioxide BUN Creatinine Glucose POC Glucose Calcium Phosphorus Magnesium Total Creatine Kinase CK-MB (CK-2) Rel Index Troponin T C-Reactive Protein Total Protein Albumin LDL Cholesterol Direct Urine WBC (Auto) 8.0 H Crossmatch 04/06/22 04/06/22 04/07/22 04:00 08:30 00:04 WBC RBC Hgb Hct MCV MCHC RDW Plt Count Lymph % (Auto) [place] % (Auto) Lymph # (Auto) [place] # (Auto) Seg Neutrophils % Seg Neuts % (Manual) Lymphocytes % (Manual) Seg Neutrophils # Seg Neutrophils # Man Lymphocytes # (Manual) PT INR ABG pH ABG pO2 60.8 L ABG HCO3 30.5 H ABG O2 Saturation 93.3 L ABG Base Excess 4.9 H ABG Hemoglobin 12.4 L Oxyhemoglobin 92.1 L Sodium Potassium 3.0 L Chloride Carbon Dioxide BUN Creatinine < 0.2 L Glucose 130 H POC Glucose 117 H Calcium 8.1 L Phosphorus Magnesium Total Creatine Kinase CK-MB (CK-2) Rel Index Troponin T C-Reactive Protein Total Protein Albumin LDL Cholesterol Direct Urine WBC (Auto) Crossmatch 04/07/22 04/07/22 04/07/22 03:51 03:51 03:51 WBC 14.6 H RBC 3.57 L Hgb 11.1 L Hct 33.2 L MCV MCHC RDW Plt Count 118 L Lymph % (Auto) 4.3 L [place] % (Auto) 8.8 H Lymph # (Auto) 0.6 L [place] # (Auto) 1.3 H Seg Neutrophils % 86.6 H Seg Neuts % (Manual) Lymphocytes % (Manual) Seg Neutrophils # 12.7 H Seg Neutrophils # Man Lymphocytes # (Manual) PT 15.2 H INR ABG pH ABG pO2 ABG HCO3 ABG O2 Saturation ABG Base Excess ABG Hemoglobin Oxyhemoglobin Sodium 133 L Potassium Chloride 96.0 L Carbon Dioxide 31 H BUN Creatinine 0.2 L Glucose 130 H POC Glucose Calcium 8.0 L Phosphorus Magnesium Total Creatine Kinase CK-MB (CK-2) Rel Index Troponin T C-Reactive Protein Total Protein Albumin LDL Cholesterol Direct Urine WBC (Auto) Crossmatch 04/07/22 04/07/22 04/08/22 04:25 09:10 04:49 WBC 16.1 H RBC 3.54 L Hgb 10.9 L Hct 33.3 L MCV MCHC RDW Plt Count Lymph % (Auto) [place] % (Auto) Lymph # (Auto) [place] # (Auto) Seg Neutrophils % Seg Neuts % (Manual) Lymphocytes % (Manual) Seg Neutrophils # Seg Neutrophils # Man Lymphocytes # (Manual) PT INR ABG pH ABG pO2 71.0 L 63.4 L ABG HCO3 31.5 H 40.0 H ABG O2 Saturation 94.9 L ABG Base Excess 5.9 H 13.6 H ABG Hemoglobin 11.3 L 9.0 L Oxyhemoglobin 93.6 L Sodium Potassium Chloride Carbon Dioxide BUN Creatinine Glucose POC Glucose Calcium Phosphorus Magnesium Total Creatine Kinase CK-MB (CK-2) Rel Index Troponin T C-Reactive Protein Total Protein Albumin LDL Cholesterol Direct Urine WBC (Auto) Crossmatch 04/08/22 04/08/22 04/08/22 04:49 09:53 10:25 WBC RBC Hgb Hct MCV MCHC RDW Plt Count Lymph % (Auto) [place] % (Auto) Lymph # (Auto) [place] # (Auto) Seg Neutrophils % Seg Neuts % (Manual) Lymphocytes % (Manual) Seg Neutrophils # Seg Neutrophils # Man Lymphocytes # (Manual) PT INR ABG pH ABG pO2 ABG HCO3 34.7 H ABG O2 Saturation ABG Base Excess 7.9 H ABG Hemoglobin 11.0 L Oxyhemoglobin Sodium 136 L Potassium Chloride 97.7 L Carbon Dioxide 33 H BUN Creatinine 0.2 L Glucose 155 H POC Glucose Calcium Phosphorus Magnesium Total Creatine Kinase CK-MB (CK-2) Rel Index Troponin T 0.030 H C-Reactive Protein Total Protein Albumin LDL Cholesterol Direct Urine WBC (Auto) Crossmatch 04/08/22 04/08/22 04/08/22 11:19 17:47 18:06 WBC RBC Hgb Hct MCV MCHC RDW Plt Count Lymph % (Auto) [place] % (Auto) Lymph # (Auto) [place] # (Auto) Seg Neutrophils % Seg Neuts % (Manual) Lymphocytes % (Manual) Seg Neutrophils # Seg Neutrophils # Man Lymphocytes # (Manual) PT INR ABG pH ABG pO2 ABG HCO3 ABG O2 Saturation ABG Base Excess ABG Hemoglobin Oxyhemoglobin Sodium Potassium Chloride Carbon Dioxide BUN Creatinine Glucose POC Glucose 121 H Calcium Phosphorus Magnesium Total Creatine Kinase 31 L 46 L CK-MB (CK-2) Rel Index 6.4 H 5.6 H Troponin T 0.030 H 0.031 H C-Reactive Protein Total Protein Albumin LDL Cholesterol Direct Urine WBC (Auto) Crossmatch 04/09/22 04/09/22 04/09/22 04:35 04:35 11:24 WBC 11.5 H RBC 3.16 L Hgb 9.9 L Hct 29.4 L MCV MCHC RDW Plt Count 131 L Lymph % (Auto) [place] % (Auto) Lymph # (Auto) [place] # (Auto) Seg Neutrophils % Seg Neuts % (Manual) Lymphocytes % (Manual) Seg Neutrophils # Seg Neutrophils # Man Lymphocytes # (Manual) PT INR ABG pH ABG pO2 ABG HCO3 ABG O2 Saturation ABG Base Excess ABG Hemoglobin Oxyhemoglobin Sodium Potassium Chloride 97.1 L Carbon Dioxide 35 H BUN Creatinine < 0.2 L Glucose 145 H POC Glucose 147 H Calcium Phosphorus Magnesium Total Creatine Kinase CK-MB (CK-2) Rel Index Troponin T C-Reactive Protein Total Protein Albumin LDL Cholesterol Direct Urine WBC (Auto) Crossmatch 04/09/22 04/09/22 04/09/22 13:00 17:32 23:48 WBC RBC Hgb Hct MCV MCHC RDW Plt Count Lymph % (Auto) [place] % (Auto) Lymph # (Auto) [place] # (Auto) Seg Neutrophils % Seg Neuts % (Manual) Lymphocytes % (Manual) Seg Neutrophils # Seg Neutrophils # Man Lymphocytes # (Manual) PT INR ABG pH ABG pO2 66.6 L ABG HCO3 38.2 H ABG O2 Saturation 94.4 L ABG Base Excess 10.7 H ABG Hemoglobin 10.7 L Oxyhemoglobin 92.8 L Sodium Potassium Chloride Carbon Dioxide BUN Creatinine Glucose POC Glucose 143 H 114 H Calcium Phosphorus Magnesium Total Creatine Kinase CK-MB (CK-2) Rel Index Troponin T C-Reactive Protein Total Protein Albumin LDL Cholesterol Direct Urine WBC (Auto) Crossmatch 04/10/22 04/10/22 04/10/22 04:48 04:48 05:34 WBC RBC 2.91 L Hgb 9.1 L Hct 27.7 L MCV 95 H MCHC RDW Plt Count Lymph % (Auto) [place] % (Auto) Lymph # (Auto) [place] # (Auto) Seg Neutrophils % Seg Neuts % (Manual) Lymphocytes % (Manual) Seg Neutrophils # Seg Neutrophils # Man Lymphocytes # (Manual) PT INR ABG pH ABG pO2 ABG HCO3 ABG O2 Saturation ABG Base Excess ABG Hemoglobin Oxyhemoglobin Sodium Potassium Chloride 95.7 L Carbon Dioxide 38 H BUN Creatinine < 0.2 L Glucose 118 H POC Glucose 127 H Calcium Phosphorus Magnesium Total Creatine Kinase CK-MB (CK-2) Rel Index Troponin T C-Reactive Protein Total Protein Albumin LDL Cholesterol Direct Urine WBC (Auto) Crossmatch 04/10/22 04/11/22 04/11/22 23:10 04:15 04:15 WBC 17.2 H RBC 2.98 L Hgb 9.2 L Hct 27.9 L MCV MCHC RDW Plt Count Lymph % (Auto) [place] % (Auto) Lymph # (Auto) [place] # (Auto) Seg Neutrophils % Seg Neuts % (Manual) Lymphocytes % (Manual) Seg Neutrophils # Seg Neutrophils # Man Lymphocytes # (Manual) PT INR ABG pH ABG pO2 ABG HCO3 ABG O2 Saturation ABG Base Excess ABG Hemoglobin Oxyhemoglobin Sodium Potassium Chloride 96.1 L Carbon Dioxide 35 H BUN Creatinine < 0.2 L Glucose 138 H POC Glucose 106 H Calcium 8.3 L Phosphorus Magnesium Total Creatine Kinase CK-MB (CK-2) Rel Index Troponin T C-Reactive Protein Total Protein Albumin LDL Cholesterol Direct Urine WBC (Auto) Crossmatch 04/11/22 04/11/22 04/11/22 05:31 13:18 16:20 WBC RBC Hgb Hct MCV MCHC RDW Plt Count Lymph % (Auto) [place] % (Auto) Lymph # (Auto) [place] # (Auto) Seg Neutrophils % Seg Neuts % (Manual) Lymphocytes % (Manual) Seg Neutrophils # Seg Neutrophils # Man Lymphocytes # (Manual) PT INR ABG pH ABG pO2 57.8 L ABG HCO3 40.5 H ABG O2 Saturation 90.6 L ABG Base Excess 12.6 H ABG Hemoglobin 10.5 L Oxyhemoglobin 89.0 L Sodium Potassium Chloride Carbon Dioxide BUN Creatinine Glucose POC Glucose 129 H 132 H Calcium Phosphorus Magnesium Total Creatine Kinase CK-MB (CK-2) Rel Index Troponin T C-Reactive Protein Total Protein Albumin LDL Cholesterol Direct Urine WBC (Auto) Crossmatch 04/11/22 04/11/22 04/12/22 17:29 23:17 04:00 WBC 17.4 H RBC 2.96 L Hgb 9.0 L Hct 28.0 L MCV 95 H MCHC RDW Plt Count Lymph % (Auto) [place] % (Auto) Lymph # (Auto) [place] # (Auto) Seg Neutrophils % Seg Neuts % (Manual) Lymphocytes % (Manual) Seg Neutrophils # Seg Neutrophils # Man Lymphocytes # (Manual) PT INR ABG pH ABG pO2 ABG HCO3 ABG O2 Saturation ABG Base Excess ABG Hemoglobin Oxyhemoglobin Sodium Potassium Chloride Carbon Dioxide BUN Creatinine Glucose POC Glucose 125 H 151 H Calcium Phosphorus Magnesium Total Creatine Kinase CK-MB (CK-2) Rel Index Troponin T C-Reactive Protein Total Protein Albumin LDL Cholesterol Direct Urine WBC (Auto) Crossmatch 04/12/22 04/12/22 04/12/22 04:00 17:03 23:39 WBC RBC Hgb Hct MCV MCHC RDW Plt Count Lymph % (Auto) [place] % (Auto) Lymph # (Auto) [place] # (Auto) Seg Neutrophils % Seg Neuts % (Manual) Lymphocytes % (Manual) Seg Neutrophils # Seg Neutrophils # Man Lymphocytes # (Manual) PT INR ABG pH ABG pO2 ABG HCO3 ABG O2 Saturation ABG Base Excess ABG Hemoglobin Oxyhemoglobin Sodium Potassium Chloride 97.4 L Carbon Dioxide 37 H BUN Creatinine < 0.2 L Glucose 127 H POC Glucose 106 H 107 H Calcium Phosphorus Magnesium Total Creatine Kinase CK-MB (CK-2) Rel Index Troponin T C-Reactive Protein Total Protein Albumin LDL Cholesterol Direct Urine WBC (Auto) Crossmatch 04/13/22 04/13/22 04/13/22 04:30 04:30 17:39 WBC 14.1 H RBC 2.66 L Hgb 8.4 L Hct 25.5 L MCV 96 H MCHC RDW Plt Count Lymph % (Auto) [place] % (Auto) Lymph # (Auto) [place] # (Auto) Seg Neutrophils % Seg Neuts % (Manual) Lymphocytes % (Manual) Seg Neutrophils # Seg Neutrophils # Man Lymphocytes # (Manual) PT INR ABG pH ABG pO2 ABG HCO3 ABG O2 Saturation ABG Base Excess ABG Hemoglobin Oxyhemoglobin Sodium Potassium Chloride 93.9 L Carbon Dioxide 39 H BUN Creatinine < 0.2 L Glucose POC Glucose 134 H Calcium Phosphorus 1.90 L Magnesium Total Creatine Kinase CK-MB (CK-2) Rel Index Troponin T C-Reactive Protein Total Protein Albumin LDL Cholesterol Direct Urine WBC (Auto) Crossmatch 04/14/22 04/14/22 04/14/22 05:03 05:03 09:10 WBC 15.6 H RBC 3.02 L Hgb 9.3 L Hct 28.8 L MCV 95 H MCHC RDW Plt Count Lymph % (Auto) [place] % (Auto) Lymph # (Auto) [place] # (Auto) Seg Neutrophils % Seg Neuts % (Manual) Lymphocytes % (Manual) Seg Neutrophils # Seg Neutrophils # Man Lymphocytes # (Manual) PT INR ABG pH ABG pO2 66.9 L ABG HCO3 44.5 H ABG O2 Saturation ABG Base Excess 17.2 H ABG Hemoglobin 8.1 L Oxyhemoglobin 94.8 L Sodium Potassium Chloride 93.8 L Carbon Dioxide 42 H* BUN Creatinine < 0.2 L Glucose 117 H POC Glucose Calcium Phosphorus Magnesium Total Creatine Kinase CK-MB (CK-2) Rel Index Troponin T C-Reactive Protein Total Protein Albumin LDL Cholesterol Direct Urine WBC (Auto) Crossmatch 04/15/22 04/15/22 04/16/22 04:44 04:44 04:16 WBC 13.0 H 12.6 H RBC 3.19 L 3.09 L Hgb 9.6 L 9.5 L Hct 30.2 L 29.1 L MCV 95 H MCHC RDW Plt Count 456 H Lymph % (Auto) [place] % (Auto) Lymph # (Auto) [place] # (Auto) Seg Neutrophils % Seg Neuts % (Manual) Lymphocytes % (Manual) Seg Neutrophils # Seg Neutrophils # Man Lymphocytes # (Manual) PT INR ABG pH ABG pO2 ABG HCO3 ABG O2 Saturation ABG Base Excess ABG Hemoglobin Oxyhemoglobin Sodium Potassium Chloride 95.5 L Carbon Dioxide 37 H BUN Creatinine < 0.2 L Glucose POC Glucose Calcium Phosphorus Magnesium Total Creatine Kinase CK-MB (CK-2) Rel Index Troponin T C-Reactive Protein Total Protein Albumin LDL Cholesterol Direct Urine WBC (Auto) Crossmatch 04/16/22 04/16/22 04/16/22 04:16 05:00 14:00 WBC RBC Hgb Hct MCV MCHC RDW Plt Count Lymph % (Auto) [place] % (Auto) Lymph # (Auto) [place] # (Auto) Seg Neutrophils % Seg Neuts % (Manual) Lymphocytes % (Manual) Seg Neutrophils # Seg Neutrophils # Man Lymphocytes # (Manual) PT INR ABG pH 7.324 L ABG pO2 55.6 L ABG HCO3 45.3 H ABG O2 Saturation 87.1 L ABG Base Excess 16.6 H ABG Hemoglobin 8.6 L Oxyhemoglobin 85.7 L Sodium Potassium Chloride 97.6 L Carbon Dioxide 36 H BUN Creatinine < 0.2 L Glucose 109 H POC Glucose 120 H Calcium Phosphorus Magnesium Total Creatine Kinase CK-MB (CK-2) Rel Index Troponin T C-Reactive Protein Total Protein Albumin LDL Cholesterol Direct Urine WBC (Auto) Crossmatch 04/17/22 04/17/22 04/17/22 04:36 04:36 04:57 WBC 14.4 H RBC 3.08 L Hgb 9.4 L Hct 29.0 L MCV MCHC RDW Plt Count Lymph % (Auto) [place] % (Auto) Lymph # (Auto) [place] # (Auto) Seg Neutrophils % Seg Neuts % (Manual) Lymphocytes % (Manual) Seg Neutrophils # Seg Neutrophils # Man Lymphocytes # (Manual) PT INR ABG pH ABG pO2 ABG HCO3 ABG O2 Saturation ABG Base Excess ABG Hemoglobin Oxyhemoglobin Sodium Potassium Chloride 95.9 L Carbon Dioxide 39 H BUN Creatinine < 0.2 L Glucose 140 H POC Glucose 137 H Calcium 8.3 L Phosphorus Magnesium Total Creatine Kinase CK-MB (CK-2) Rel Index Troponin T C-Reactive Protein Total Protein Albumin LDL Cholesterol Direct Urine WBC (Auto) Crossmatch 04/17/22 04/17/22 04/18/22 09:15 18:01 04:20 WBC 11.2 H RBC 3.00 L Hgb 9.3 L Hct 28.6 L MCV 95 H MCHC RDW Plt Count Lymph % (Auto) [place] % (Auto) Lymph # (Auto) [place] # (Auto) Seg Neutrophils % Seg Neuts % (Manual) Lymphocytes % (Manual) Seg Neutrophils # Seg Neutrophils # Man Lymphocytes # (Manual) PT INR ABG pH 7.345 L ABG pO2 ABG HCO3 48.2 H ABG O2 Saturation ABG Base Excess 19.2 H ABG Hemoglobin 9.7 L Oxyhemoglobin Sodium Potassium Chloride Carbon Dioxide BUN Creatinine Glucose POC Glucose 129 H Calcium Phosphorus Magnesium Total Creatine Kinase CK-MB (CK-2) Rel Index Troponin T C-Reactive Protein Total Protein Albumin LDL Cholesterol Direct Urine WBC (Auto) Crossmatch 04/18/22 04/18/22 04/18/22 04:20 17:35 23:50 WBC RBC Hgb Hct MCV MCHC RDW Plt Count Lymph % (Auto) [place] % (Auto) Lymph # (Auto) [place] # (Auto) Seg Neutrophils % Seg Neuts % (Manual) Lymphocytes % (Manual) Seg Neutrophils # Seg Neutrophils # Man Lymphocytes # (Manual) PT INR ABG pH ABG pO2 ABG HCO3 ABG O2 Saturation ABG Base Excess ABG Hemoglobin Oxyhemoglobin Sodium Potassium Chloride 96.8 L Carbon Dioxide 43 H* BUN 22 H Creatinine < 0.2 L Glucose 137 H POC Glucose 128 H 123 H Calcium 8.2 L Phosphorus Magnesium Total Creatine Kinase CK-MB (CK-2) Rel Index Troponin T C-Reactive Protein Total Protein Albumin LDL Cholesterol Direct Urine WBC (Auto) Crossmatch 04/19/22 04/19/22 04/19/22 04:08 04:08 08:50 WBC 16.8 H RBC 3.18 L Hgb 9.8 L Hct 30.1 L MCV 95 H MCHC RDW Plt Count Lymph % (Auto) [place] % (Auto) Lymph # (Auto) [place] # (Auto) Seg Neutrophils % Seg Neuts % (Manual) Lymphocytes % (Manual) Seg Neutrophils # Seg Neutrophils # Man Lymphocytes # (Manual) PT INR ABG pH ABG pO2 56.0 L ABG HCO3 47.1 H ABG O2 Saturation 93.3 L ABG Base Excess 20.1 H ABG Hemoglobin 8.0 L Oxyhemoglobin 91.8 L Sodium Potassium Chloride 96.2 L Carbon Dioxide 40 H BUN 24 H Creatinine < 0.2 L Glucose 125 H POC Glucose Calcium 8.3 L Phosphorus Magnesium Total Creatine Kinase CK-MB (CK-2) Rel Index Troponin T C-Reactive Protein Total Protein Albumin LDL Cholesterol Direct Urine WBC (Auto) Crossmatch 04/19/22 04/20/22 04/20/22 12:02 00:40 04:49 WBC 14.7 H RBC 3.36 L Hgb 10.3 L Hct 32.0 L MCV 95 H MCHC RDW Plt Count Lymph % (Auto) [place] % (Auto) Lymph # (Auto) [place] # (Auto) Seg Neutrophils % Seg Neuts % (Manual) Lymphocytes % (Manual) Seg Neutrophils # Seg Neutrophils # Man Lymphocytes # (Manual) PT INR ABG pH ABG pO2 ABG HCO3 ABG O2 Saturation ABG Base Excess ABG Hemoglobin Oxyhemoglobin Sodium Potassium Chloride Carbon Dioxide BUN Creatinine Glucose POC Glucose 124 H 140 H Calcium Phosphorus Magnesium Total Creatine Kinase CK-MB (CK-2) Rel Index Troponin T C-Reactive Protein Total Protein Albumin LDL Cholesterol Direct Urine WBC (Auto) Crossmatch 04/20/22 04/20/22 04/21/22 05:36 11:40 04:05 WBC RBC Hgb Hct MCV MCHC RDW Plt Count Lymph % (Auto) [place] % (Auto) Lymph # (Auto) [place] # (Auto) Seg Neutrophils % Seg Neuts % (Manual) Lymphocytes % (Manual) Seg Neutrophils # Seg Neutrophils # Man Lymphocytes # (Manual) PT INR ABG pH ABG pO2 ABG HCO3 ABG O2 Saturation ABG Base Excess ABG Hemoglobin Oxyhemoglobin Sodium Potassium Chloride 93.4 L Carbon Dioxide 40 H BUN 25 H Creatinine < 0.2 L Glucose 122 H POC Glucose 125 H 128 H Calcium Phosphorus Magnesium Total Creatine Kinase CK-MB (CK-2) Rel Index Troponin T C-Reactive Protein Total Protein Albumin LDL Cholesterol Direct Urine WBC (Auto) Crossmatch 04/21/22 04/22/22 04/22/22 10:31 05:03 05:03 WBC 12.6 H 12.7 H RBC 2.83 L 2.96 L Hgb 8.6 L 9.0 L Hct 26.9 L 28.0 L MCV 95 H 95 H MCHC RDW Plt Count Lymph % (Auto) [place] % (Auto) Lymph # (Auto) [place] # (Auto) Seg Neutrophils % Seg Neuts % (Manual) Lymphocytes % (Manual) Seg Neutrophils # Seg Neutrophils # Man Lymphocytes # (Manual) PT INR ABG pH ABG pO2 ABG HCO3 ABG O2 Saturation ABG Base Excess ABG Hemoglobin Oxyhemoglobin Sodium Potassium Chloride 93.9 L Carbon Dioxide 43 H* BUN 23 H Creatinine < 0.2 L Glucose 137 H POC Glucose Calcium Phosphorus Magnesium Total Creatine Kinase CK-MB (CK-2) Rel Index Troponin T C-Reactive Protein Total Protein Albumin LDL Cholesterol Direct Urine WBC (Auto) Crossmatch 04/22/22 04/23/22 04/24/22 08:34 09:40 04:29 WBC 14.4 H RBC 2.74 L Hgb 8.4 L Hct 25.7 L MCV MCHC RDW Plt Count Lymph % (Auto) [place] % (Auto) Lymph # (Auto) [place] # (Auto) Seg Neutrophils % Seg Neuts % (Manual) Lymphocytes % (Manual) Seg Neutrophils # Seg Neutrophils # Man Lymphocytes # (Manual) PT INR ABG pH ABG pO2 54.1 L 56.8 L ABG HCO3 48.5 H 49.0 H ABG O2 Saturation 92.1 L 90.9 L ABG Base Excess 20.9 H 20.8 H ABG Hemoglobin 9.0 L 8.4 L Oxyhemoglobin 90.6 L 89.5 L Sodium Potassium Chloride Carbon Dioxide BUN Creatinine Glucose POC Glucose Calcium Phosphorus Magnesium Total Creatine Kinase CK-MB (CK-2) Rel Index Troponin T C-Reactive Protein Total Protein Albumin LDL Cholesterol Direct Urine WBC (Auto) Crossmatch 04/24/22 04/25/22 04/26/22 04:29 09:00 04:22 WBC RBC 2.88 L Hgb 8.9 L Hct 26.8 L MCV MCHC RDW Plt Count Lymph % (Auto) [place] % (Auto) Lymph # (Auto) [place] # (Auto) Seg Neutrophils % Seg Neuts % (Manual) Lymphocytes % (Manual) Seg Neutrophils # Seg Neutrophils # Man Lymphocytes # (Manual) PT INR ABG pH 7.457 H ABG pO2 66.7 L ABG HCO3 42.6 H ABG O2 Saturation ABG Base Excess 15.3 H ABG Hemoglobin 8.8 L Oxyhemoglobin 94.1 L Sodium Potassium Chloride 90.7 L Carbon Dioxide 40 H BUN Creatinine < 0.2 L Glucose 133 H POC Glucose Calcium Phosphorus Magnesium Total Creatine Kinase CK-MB (CK-2) Rel Index Troponin T C-Reactive Protein Total Protein Albumin LDL Cholesterol Direct Urine WBC (Auto) Crossmatch 04/26/22 04/29/22 04/29/22 04:22 04:18 04:18 WBC 13.5 H RBC 2.96 L Hgb 8.9 L Hct 27.7 L MCV MCHC RDW Plt Count Lymph % (Auto) [place] % (Auto) Lymph # (Auto) [place] # (Auto) Seg Neutrophils % Seg Neuts % (Manual) Lymphocytes % (Manual) Seg Neutrophils # Seg Neutrophils # Man Lymphocytes # (Manual) PT INR ABG pH ABG pO2 ABG HCO3 ABG O2 Saturation ABG Base Excess ABG Hemoglobin Oxyhemoglobin Sodium Potassium Chloride 93.2 L 95.2 L Carbon Dioxide 37 H 38 H BUN Creatinine < 0.2 L < 0.2 L Glucose 114 H 116 H POC Glucose Calcium Phosphorus Magnesium Total Creatine Kinase CK-MB (CK-2) Rel Index Troponin T C-Reactive Protein Total Protein Albumin LDL Cholesterol Direct Urine WBC (Auto) Crossmatch 05/02/22 05/03/22 05/03/22 04:29 04:02 04:02 WBC 12.9 H 12.3 H RBC 2.82 L 2.83 L Hgb 8.4 L 8.4 L Hct 26.2 L 26.0 L MCV MCHC RDW Plt Count Lymph % (Auto) [place] % (Auto) Lymph # (Auto) [place] # (Auto) Seg Neutrophils % Seg Neuts % (Manual) Lymphocytes % (Manual) Seg Neutrophils # Seg Neutrophils # Man Lymphocytes # (Manual) PT INR ABG pH ABG pO2 ABG HCO3 ABG O2 Saturation ABG Base Excess ABG Hemoglobin Oxyhemoglobin Sodium 134 L Potassium Chloride 90.5 L Carbon Dioxide 38 H BUN 21 H Creatinine < 0.2 L Glucose 126 H POC Glucose Calcium Phosphorus Magnesium Total Creatine Kinase CK-MB (CK-2) Rel Index Troponin T C-Reactive Protein Total Protein Albumin LDL Cholesterol Direct Urine WBC (Auto) Crossmatch 05/03/22 05/03/22 05/04/22 12:02 17:42 09:36 WBC RBC Hgb Hct MCV MCHC RDW Plt Count Lymph % (Auto) [place] % (Auto) Lymph # (Auto) [place] # (Auto) Seg Neutrophils % Seg Neuts % (Manual) Lymphocytes % (Manual) Seg Neutrophils # Seg Neutrophils # Man Lymphocytes # (Manual) PT INR ABG pH ABG pO2 55.4 L ABG HCO3 43.7 H ABG O2 Saturation 87.4 L ABG Base Excess 16.1 H ABG Hemoglobin 9.1 L Oxyhemoglobin 85.7 L Sodium Potassium Chloride Carbon Dioxide BUN Creatinine Glucose POC Glucose 139 H 131 H Calcium Phosphorus Magnesium Total Creatine Kinase CK-MB (CK-2) Rel Index Troponin T C-Reactive Protein Total Protein Albumin LDL Cholesterol Direct Urine WBC (Auto) Crossmatch 05/04/22 05/04/22 05/05/22 17:08 23:10 04:23 WBC 14.4 H RBC 2.75 L Hgb 8.2 L Hct 25.2 L MCV MCHC RDW Plt Count Lymph % (Auto) [place] % (Auto) Lymph # (Auto) [place] # (Auto) Seg Neutrophils % Seg Neuts % (Manual) Lymphocytes % (Manual) Seg Neutrophils # Seg Neutrophils # Man Lymphocytes # (Manual) PT INR ABG pH ABG pO2 ABG HCO3 ABG O2 Saturation ABG Base Excess ABG Hemoglobin Oxyhemoglobin Sodium Potassium Chloride Carbon Dioxide BUN Creatinine Glucose POC Glucose 124 H 115 H Calcium Phosphorus Magnesium Total Creatine Kinase CK-MB (CK-2) Rel Index Troponin T C-Reactive Protein Total Protein Albumin LDL Cholesterol Direct Urine WBC (Auto) Crossmatch 05/05/22 05/05/22 05/06/22 04:23 21:39 05:13 WBC RBC Hgb Hct MCV MCHC RDW Plt Count Lymph % (Auto) [place] % (Auto) Lymph # (Auto) [place] # (Auto) Seg Neutrophils % Seg Neuts % (Manual) Lymphocytes % (Manual) Seg Neutrophils # Seg Neutrophils # Man Lymphocytes # (Manual) PT INR ABG pH ABG pO2 ABG HCO3 ABG O2 Saturation ABG Base Excess ABG Hemoglobin Oxyhemoglobin Sodium Potassium Chloride 91.3 L Carbon Dioxide 38 H BUN 23 H Creatinine < 0.2 L Glucose 128 H POC Glucose 141 H 136 H Calcium Phosphorus Magnesium Total Creatine Kinase CK-MB (CK-2) Rel Index Troponin T C-Reactive Protein Total Protein Albumin LDL Cholesterol Direct Urine WBC (Auto) Crossmatch 05/07/22 05/07/22 05/08/22 05:29 22:15 05:48 WBC RBC Hgb Hct MCV MCHC RDW Plt Count Lymph % (Auto) [place] % (Auto) Lymph # (Auto) [place] # (Auto) Seg Neutrophils % Seg Neuts % (Manual) Lymphocytes % (Manual) Seg Neutrophils # Seg Neutrophils # Man Lymphocytes # (Manual) PT INR ABG pH ABG pO2 ABG HCO3 ABG O2 Saturation ABG Base Excess ABG Hemoglobin Oxyhemoglobin Sodium Potassium Chloride Carbon Dioxide BUN Creatinine Glucose POC Glucose 125 H 142 H 122 H Calcium Phosphorus Magnesium Total Creatine Kinase CK-MB (CK-2) Rel Index Troponin T C-Reactive Protein Total Protein Albumin LDL Cholesterol Direct Urine WBC (Auto) Crossmatch 05/08/22 05/08/22 05/09/22 14:04 21:48 15:15 WBC RBC 2.61 L Hgb 7.7 L Hct 23.2 L MCV MCHC RDW Plt Count Lymph % (Auto) 8.1 L [place] % (Auto) Lymph # (Auto) 0.9 L [place] # (Auto) Seg Neutrophils % 86.1 H Seg Neuts % (Manual) Lymphocytes % (Manual) Seg Neutrophils # 9.2 H Seg Neutrophils # Man Lymphocytes # (Manual) PT INR ABG pH ABG pO2 ABG HCO3 ABG O2 Saturation ABG Base Excess ABG Hemoglobin Oxyhemoglobin Sodium Potassium Chloride Carbon Dioxide BUN Creatinine Glucose POC Glucose 112 H 107 H Calcium Phosphorus Magnesium Total Creatine Kinase CK-MB (CK-2) Rel Index Troponin T C-Reactive Protein Total Protein Albumin LDL Cholesterol Direct Urine WBC (Auto) Crossmatch 05/09/22 05/09/22 05/09/22 15:15 15:39 21:15 WBC RBC Hgb Hct MCV MCHC RDW Plt Count Lymph % (Auto) [place] % (Auto) Lymph # (Auto) [place] # (Auto) Seg Neutrophils % Seg Neuts % (Manual) Lymphocytes % (Manual) Seg Neutrophils # Seg Neutrophils # Man Lymphocytes # (Manual) PT INR ABG pH ABG pO2 ABG HCO3 ABG O2 Saturation ABG Base Excess ABG Hemoglobin Oxyhemoglobin Sodium Potassium Chloride 92.9 L Carbon Dioxide 40 H BUN Creatinine < 0.2 L Glucose 141 H POC Glucose 118 H 112 H Calcium Phosphorus Magnesium Total Creatine Kinase CK-MB (CK-2) Rel Index Troponin T C-Reactive Protein Total Protein Albumin LDL Cholesterol Direct Urine WBC (Auto) Crossmatch 05/10/22 05/12/22 05/13/22 15:14 00:25 04:02 WBC 13.3 H RBC 3.14 L Hgb 8.7 L Hct 28.0 L MCV MCHC 31 L RDW Plt Count Lymph % (Auto) [place] % (Auto) Lymph # (Auto) [place] # (Auto) Seg Neutrophils % Seg Neuts % (Manual) Lymphocytes % (Manual) Seg Neutrophils # Seg Neutrophils # Man Lymphocytes # (Manual) PT INR ABG pH ABG pO2 ABG HCO3 ABG O2 Saturation ABG Base Excess ABG Hemoglobin Oxyhemoglobin Sodium Potassium Chloride Carbon Dioxide BUN Creatinine Glucose POC Glucose 113 H 158 H Calcium Phosphorus Magnesium Total Creatine Kinase CK-MB (CK-2) Rel Index Troponin T C-Reactive Protein Total Protein Albumin LDL Cholesterol Direct Urine WBC (Auto) Crossmatch 05/13/22 05/13/22 05/13/22 04:02 06:32 13:09 WBC RBC Hgb Hct MCV MCHC RDW Plt Count Lymph % (Auto) [place] % (Auto) Lymph # (Auto) [place] # (Auto) Seg Neutrophils % Seg Neuts % (Manual) Lymphocytes % (Manual) Seg Neutrophils # Seg Neutrophils # Man Lymphocytes # (Manual) PT INR ABG pH ABG pO2 ABG HCO3 ABG O2 Saturation ABG Base Excess ABG Hemoglobin Oxyhemoglobin Sodium 135 L Potassium Chloride 91.1 L Carbon Dioxide 40 H BUN 23 H Creatinine < 0.2 L Glucose 139 H POC Glucose 129 H 117 H Calcium Phosphorus Magnesium Total Creatine Kinase CK-MB (CK-2) Rel Index Troponin T C-Reactive Protein Total Protein Albumin LDL Cholesterol Direct Urine WBC (Auto) Crossmatch 05/13/22 05/14/22 05/14/22 21:28 05:44 07:35 WBC RBC Hgb Hct MCV MCHC RDW Plt Count Lymph % (Auto) [place] % (Auto) Lymph # (Auto) [place] # (Auto) Seg Neutrophils % Seg Neuts % (Manual) Lymphocytes % (Manual) Seg Neutrophils # Seg Neutrophils # Man Lymphocytes # (Manual) PT INR ABG pH ABG pO2 ABG HCO3 ABG O2 Saturation ABG Base Excess ABG Hemoglobin Oxyhemoglobin Sodium Potassium Chloride Carbon Dioxide BUN Creatinine Glucose POC Glucose 109 H 130 H 125 H Calcium Phosphorus Magnesium Total Creatine Kinase CK-MB (CK-2) Rel Index Troponin T C-Reactive Protein Total Protein Albumin LDL Cholesterol Direct Urine WBC (Auto) Crossmatch 05/14/22 05/14/22 05/15/22 16:26 23:44 10:44 WBC 13.9 H RBC 2.71 L Hgb 7.5 L Hct 23.5 L MCV MCHC RDW 15.9 H Plt Count Lymph % (Auto) [place] % (Auto) Lymph # (Auto) [place] # (Auto) Seg Neutrophils % Seg Neuts % (Manual) Lymphocytes % (Manual) Seg Neutrophils # Seg Neutrophils # Man Lymphocytes # (Manual) PT INR ABG pH ABG pO2 ABG HCO3 ABG O2 Saturation ABG Base Excess ABG Hemoglobin Oxyhemoglobin Sodium Potassium Chloride Carbon Dioxide BUN Creatinine Glucose POC Glucose 112 H 189 H Calcium Phosphorus Magnesium Total Creatine Kinase CK-MB (CK-2) Rel Index Troponin T C-Reactive Protein Total Protein Albumin LDL Cholesterol Direct Urine WBC (Auto) Crossmatch 05/15/22 05/16/22 05/16/22 10:44 14:50 21:36 WBC RBC Hgb Hct MCV MCHC RDW Plt Count Lymph % (Auto) [place] % (Auto) Lymph # (Auto) [place] # (Auto) Seg Neutrophils % Seg Neuts % (Manual) Lymphocytes % (Manual) Seg Neutrophils # Seg Neutrophils # Man Lymphocytes # (Manual) PT INR ABG pH ABG pO2 ABG HCO3 ABG O2 Saturation ABG Base Excess ABG Hemoglobin Oxyhemoglobin Sodium 135 L Potassium 3.3 L D Chloride 91.5 L Carbon Dioxide 33 H D BUN 21 H Creatinine < 0.2 L Glucose 118 H POC Glucose 133 H 123 H Calcium 7.9 L Phosphorus Magnesium Total Creatine Kinase CK-MB (CK-2) Rel Index Troponin T C-Reactive Protein Total Protein Albumin LDL Cholesterol Direct Urine WBC (Auto) Crossmatch 05/17/22 05/17/22 05/17/22 03:41 03:41 05:51 WBC 16.2 H RBC 2.53 L Hgb 7.0 L Hct 21.5 L MCV MCHC RDW 16.2 H Plt Count Lymph % (Auto) [place] % (Auto) Lymph # (Auto) [place] # (Auto) Seg Neutrophils % Seg Neuts % (Manual) 96.0 H Lymphocytes % (Manual) 1.0 L Seg Neutrophils # Seg Neutrophils # Man 15.6 H Lymphocytes # (Manual) 0.2 L PT INR ABG pH ABG pO2 ABG HCO3 ABG O2 Saturation ABG Base Excess ABG Hemoglobin Oxyhemoglobin Sodium 132 L Potassium Chloride 95.0 L Carbon Dioxide BUN 22 H Creatinine < 0.2 L Glucose 122 H POC Glucose 123 H Calcium Phosphorus Magnesium Total Creatine Kinase CK-MB (CK-2) Rel Index Troponin T C-Reactive Protein 31.20 H Total Protein Albumin LDL Cholesterol Direct Urine WBC (Auto) Crossmatch 05/17/22 05/17/22 05/18/22 07:53 21:03 05:41 WBC 15.0 H RBC 2.58 L Hgb 7.1 L Hct 22.3 L MCV MCHC RDW 16.1 H Plt Count Lymph % (Auto) [place] % (Auto) Lymph # (Auto) [place] # (Auto) Seg Neutrophils % Seg Neuts % (Manual) Lymphocytes % (Manual) Seg Neutrophils # Seg Neutrophils # Man Lymphocytes # (Manual) PT INR ABG pH ABG pO2 ABG HCO3 ABG O2 Saturation ABG Base Excess ABG Hemoglobin Oxyhemoglobin Sodium Potassium Chloride Carbon Dioxide BUN Creatinine Glucose POC Glucose 106 H 123 H Calcium Phosphorus Magnesium Total Creatine Kinase CK-MB (CK-2) Rel Index Troponin T C-Reactive Protein Total Protein Albumin LDL Cholesterol Direct Urine WBC (Auto) Crossmatch 05/18/22 05/18/22 05/18/22 05:41 13:56 21:08 WBC RBC Hgb Hct MCV MCHC RDW Plt Count Lymph % (Auto) [place] % (Auto) Lymph # (Auto) [place] # (Auto) Seg Neutrophils % Seg Neuts % (Manual) Lymphocytes % (Manual) Seg Neutrophils # Seg Neutrophils # Man Lymphocytes # (Manual) PT INR ABG pH ABG pO2 ABG HCO3 ABG O2 Saturation ABG Base Excess ABG Hemoglobin Oxyhemoglobin Sodium Potassium Chloride 97.9 L Carbon Dioxide BUN 23 H Creatinine < 0.2 L Glucose 128 H POC Glucose 137 H Calcium Phosphorus Magnesium Total Creatine Kinase CK-MB (CK-2) Rel Index Troponin T C-Reactive Protein Total Protein Albumin LDL Cholesterol Direct Urine WBC (Auto) Crossmatch See Detail 05/18/22 05/19/22 05/20/22 23:21 06:10 00:43 WBC 13.5 H RBC 2.53 L Hgb 7.2 L Hct 21.5 L MCV MCHC RDW 16.4 H Plt Count Lymph % (Auto) [place] % (Auto) Lymph # (Auto) [place] # (Auto) Seg Neutrophils % Seg Neuts % (Manual) Lymphocytes % (Manual) Seg Neutrophils # Seg Neutrophils # Man Lymphocytes # (Manual) PT INR ABG pH ABG pO2 70.5 L ABG HCO3 30.3 H ABG O2 Saturation ABG Base Excess 4.9 H ABG Hemoglobin 5.9 L Oxyhemoglobin Sodium Potassium Chloride Carbon Dioxide BUN Creatinine Glucose POC Glucose 151 H Calcium Phosphorus Magnesium Total Creatine Kinase CK-MB (CK-2) Rel Index Troponin T C-Reactive Protein Total Protein Albumin LDL Cholesterol Direct Urine WBC (Auto) Crossmatch 05/20/22 05/20/22 05/20/22 04:40 04:40 07:08 WBC 13.3 H RBC 2.57 L Hgb 7.1 L Hct 22.2 L MCV MCHC RDW 16.3 H Plt Count Lymph % (Auto) [place] % (Auto) Lymph # (Auto) [place] # (Auto) Seg Neutrophils % Seg Neuts % (Manual) Lymphocytes % (Manual) Seg Neutrophils # Seg Neutrophils # Man Lymphocytes # (Manual) PT INR ABG pH ABG pO2 ABG HCO3 ABG O2 Saturation ABG Base Excess ABG Hemoglobin Oxyhemoglobin Sodium 134 L Potassium Chloride Carbon Dioxide BUN Creatinine < 0.2 L Glucose 170 H POC Glucose 174 H Calcium 8.1 L Phosphorus Magnesium Total Creatine Kinase CK-MB (CK-2) Rel Index Troponin T C-Reactive Protein Total Protein Albumin LDL Cholesterol Direct Urine WBC (Auto) Crossmatch Allied health notes reviewed: RT
[2022-05-20] MEDS: VANCOMYCIN/NS 1 GM/250 ML 1 GM/250 ML BAG IV SCH ×2 (10:30→22:05)
--- NOTE | 2022-05-20 10:54 | Progress Note ---
Assessment and Plan - Patient Problems (1) Respiratory failure Current Visit: Yes Status: Acute Plan to address problem: Patient presented with acute respiratory failure, with chest x-ray showing total whiteout of the right lung, due to acute pneumonia, large right pleural effusion and collapse of the right lung. Continue supportive management, antibiotics. (2) Acute coronary syndrome Current Visit: Yes Status: Acute Plan to address problem: The patient's interval ECGs while in the ICU showed dynamic changes of anterior wall ischemia or infarction. Patient has severe comorbidities including progressive total paralysis of ALS, and intercurrent respiratory failure with large right pleural effusion and total collapse of the right lung. Currently assessed as a poor candidate for aggressive cardiac management due to the multiple severe acute and chronic comorbidities. He has been placed on conservative, empiric coronary artery disease medical therapy. A trach PEG procedure has been completed, discharge planning for intermediate facility placement is in progress. We will follow intermittently. Subjective Date of service: 05/20/22 Principal diagnosis: Ac and ch hypercapnic and hypoxemic Resp Failure; ALS; HCAP; Sepsis; NSTEMI Interval history: Patient is on the vent via trach, no new cardiac events reported. On playground monitor, there is a SR. Objective Vital Signs Temp Pulse Pulse Pulse Pulse Resp Resp 05/20/22 10:00 111 H 05/20/22 09:00 111 H 05/20/22 08:45 104 H 05/20/22 08:43 105 H 05/20/22 08:00 99.4 F 100 H 107 H 29 H 05/20/22 07:00 98 H 05/20/22 06:00 98 H 30 H 05/20/22 05:26 98 H 05/20/22 05:00 96 H 05/20/22 04:00 99.1 F 97 H 115 H 05/20/22 03:00 93 H 05/20/22 02:00 92 H 05/20/22 01:00 94 H 05/20/22 00:52 94 H 05/20/22 00:25 91 H 05/20/22 00:00 98.8 F 93 H 115 H 05/19/22 23:00 96 H 05/19/22 22:00 102 H 05/19/22 21:00 105 H 05/19/22 20:54 103 H 110 H 110 H 05/19/22 20:00 99.0 F 96 H 115 H 15 05/19/22 19:00 98 H 21 05/19/22 18:20 98 H 25 H 05/19/22 18:02 92 H 05/19/22 16:08 117 H 05/19/22 16:06 117 H 11 L 05/19/22 16:00 99.3 F 112 H 115 H 13 05/19/22 15:00 117 H 13 05/19/22 14:00 113 H 14 05/19/22 13:00 115 H 16 05/19/22 12:14 112 H 05/19/22 12:00 99.1 F 112 H 113 H 15 05/19/22 11:00 113 H 16 Resp BP Pulse Ox Pulse Ox 05/20/22 10:00 99/58 95 05/20/22 09:00 94/66 95 05/20/22 08:45 95/54 99 05/20/22 08:43 18 05/20/22 08:00 95/54 98 05/20/22 07:00 88/57 05/20/22 06:00 89/55 99 05/20/22 05:26 88/53 100 05/20/22 05:00 88/53 100 05/20/22 04:00 86/50 99 05/20/22 03:00 81/48 100 05/20/22 02:00 84/49 05/20/22 01:00 79/47 99 05/20/22 00:52 77/46 05/20/22 00:25 77/46 99 99 05/20/22 00:00 77/46 97 05/19/22 23:00 78/45 96 05/19/22 22:00 83/47 05/19/22 21:00 94/61 99 05/19/22 20:54 14 94/61 98 05/19/22 20:00 88/56 98 05/19/22 19:00 93/61 98 05/19/22 18:20 111/66 97 05/19/22 18:02 110/65 100 05/19/22 16:08 97 05/19/22 16:06 111/71 96 05/19/22 16:00 110/65 91 97 05/19/22 15:00 111/71 92 05/19/22 14:00 107/69 94 05/19/22 13:00 105/73 95 05/19/22 12:14 102/69 97 05/19/22 12:00 102/69 96 05/19/22 11:00 102/70 97 - Physical Examination General: Other (On the vent via tracheostomy) HEENT: Positive: PERRL, Other (ET-tube in place) Neck: Positive: neck supple Cardiac: Positive: Reg Rate and Rhythm Lungs: Positive: Decreased Breath Sounds Neuro: Positive: Weakness (Generalized myopathy, patient with ALS), Other (On the vent via tracheostomy) Abdomen: Positive: Soft Skin: Positive: Clear Extremities: Present: Other (TR.EDEMA). Absent: edema (NO) - Labs and Meds CBC 05/20/22 Range/Units 04:40 WBC 13.3 H (4.5-11.0) K/mm3 RBC 2.57 L (3.65-5.03) M/mm3 Hgb 7.1 L (11.8-15.2) gm/dl Hct 22.2 L (35.5-45.6) % Plt Count 303 (140-440) K/mm3 Comprehensive Metabolic Panel 05/20/22 Range/Units 04:40 Sodium 134 L (137-145) mmol/L Potassium 4.3 (3.6-5.0) mmol/L Chloride 98.8 (98-107) mmol/L Carbon Dioxide 30 (22-30) mmol/L BUN 18 (9-20) mg/dL Creatinine < 0.2 L (0.8-1.3) mg/dL Glucose 170 H (75-100) mg/dL Calcium 8.1 L (8.4-10.2) mg/dL - Allied health notes Allied health notes reviewed: RT
--- NOTE | 2022-05-20 12:30 | Progress Note ---
Assessment and Plan Cultures: 04/02/2022 urine culture: No growth 04/02/2022 sputum culture: Pseudomonas, Enterobacter 04/02/2022 blood culture: Bacillus in 1 set 04/05/2022 blood culture: No growth 04/15/2022 right middle lobe bronchial washings: Pseudomonas aeruginosa 05/15/2022 blood culture: No growth 05/17/2022 blood culture: no growth 05/17/2022 sputum culture: GNR X 2 types 05/19/2022 sacral wound culture: GPC in pairs on gram stain. Moderate GNR A/P: 57-year-old man with progressive ALS, recently hospitalized at [facility] and was discharged on hospice, readmitted here with: #Sepsis, new fevers and leukocytosis: Etiology pneumonia v/s sacral decubitus ulcer with eschar. S/P debridement on 05/19/2022. #Hospital-acquired pneumonia: previously completed abx for Pseudomonas, Enterobacter. #Acute v/s now chronic respiratory failure: on the vent. S/P trach, PEG #ALS: Was on home hospice. #Bacillus bacteremia: likely contaminant. Recs: -continue with IV meropenem + vancomycin for now -f/u sputum and debridement wound cultures Carmen German MD, [facility] O: [phone] F: [phone] C: [phone] Subjective Date of service: 05/20/22 Principal diagnosis: Ac and ch hypercapnic and hypoxemic Resp Failure; ALS; HCAP; Sepsis; NSTEMI Interval history: No fever. Had debridement yesterday. Remains on the vent. Family at bedside. Objective - Exam Narrative Exam: Physical Exam: Constitutional: awake, on the vent, trach + Head, Ears, Nose: Normocephalic, atraumatic. External ears, nose normal Eyes: Conjunctivae/corneas clear. No icterus. No ptosis. Neck: trach + Cardiovascular: S1, S2 + Respiratory: AE fair bilaterally and equal GI: Soft, bowel sounds +, PEG + Musculoskeletal: No pedal edema, no cyanosis. Skin: sacral wound with dressing, not directly examined Hem/Lymphatic: No palpable cervical or supraclavicular nodes. No lymphangitis Psych: no agitation Neurological: awake, on the vent, exam limited - Constitutional Vitals: Vital Signs Temp Pulse Resp BP Pulse Ox 99.4 F 111 H 15 99/58 95 05/20/22 08:00 05/20/22 10:00 05/20/22 10:00 05/20/22 10:00 05/20/22 10:00 Temperature -Last 24 Hours Temperature 99.4 F Temperature 99.1 F Temperature 98.8 F Temperature 99.0 F Temperature 99.3 F - Labs CBC & Chem 7: 05/20/22 04:40 05/20/22 04:40 Labs: Abnormal lab results 05/20/22 05/20/22 05/20/22 Range/Units 00:43 04:40 04:40 WBC 13.3 H (4.5-11.0) K/mm3 RBC 2.57 L (3.65-5.03) M/mm3 Hgb 7.1 L (11.8-15.2) gm/dl Hct 22.2 L (35.5-45.6) % RDW 16.3 H (13.2-15.2) % Sodium 134 L (137-145) mmol/L Creatinine < 0.2 L (0.8-1.3) mg/dL Glucose 170 H (75-100) mg/dL POC Glucose 151 H (70-105) mg/dL Calcium 8.1 L (8.4-10.2) mg/dL 05/20/22 Range/Units 07:08 WBC (4.5-11.0) K/mm3 RBC (3.65-5.03) M/mm3 Hgb (11.8-15.2) gm/dl Hct (35.5-45.6) % RDW (13.2-15.2) % Sodium (137-145) mmol/L Creatinine (0.8-1.3) mg/dL Glucose (75-100) mg/dL POC Glucose 174 H (70-105) mg/dL Calcium (8.4-10.2) mg/dL
--- NOTE | 2022-05-20 15:19 | Progress Note ---
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, recently hospitalized at [facility] admitted for acute hypoxemic respiratory failure 2/2 pneumonia Neuro: h/o ALS -s/p precedex, fentanyl gtt -Reorientation as needed -Maintain sleep-wake cycle -As needed analgesia -CT head with no acute intracranial process -Per family patient is nonverbal at baseline but responsive -Seroquel BID Cardiac: Suspect ischemic coronary artery disease, ST, h/o cardiomyopathy -Cardiology consulted, appreciate recommendations -continue conservative management -Blood pressure monitoring per protocol -s/p Vasopressor support with Levophed -Echocardiogram shows ejection fraction of 40 to 45%, mild global hypokinesis of left ventricle -Nitro patch, BB Respiratory: Acute hypoxic respiratory failure -CCM consulted, appreciate recommendations -Intubated on 04/02 with a 7.50 ETT attempt at the lips -s/p trach on 04/14 and s/p bronch on 04/15 -A.m. vent settings: PRVC Rate 14, TV 500, Peep 12, FiO2 55% -See RT notes for titration -SCpo patch -VAP bundle -SPO2 monitoring GI: Moderate protein calorie malnutrition -24 hours + 725 mL -PPI -Peg 04/14 -NTR consulted for tube feedings -BR: Senokot/colace, MiraLAX : Metabolic Alkalosis -Record intake and output -Renally dose medications -Avoid nephrotoxic medications -Bladder scan q 8 hours -trend BMP ID: Sepsis, Acute Bronchopneumonia, HAP (Pseudomonas and Enterobacter tracheal aspirate), blood culture with bacillus species, Stage 4 sacra ulcer -Infectious disease. wcon, and general surgery consulted, appreciate recommen dation-> signed off -Per infectious disease patient was recently admitted to [facility] but disc harged home with home hospice and not giving antibiotics -04/15 Tracheal aspirate with Pseudomonas aeruginosa, Enterobacter aerogenes -04/02 blood culture with bacillus species, 04/05 blood culture NGTD -MRSA (-) -s/p cefepime for 14 days -Currently on Meropenum and vanco -05/19 s/p wound debridement, mesh placement to wound bed and wound vac placement -wound cultures pending -Dressing changes per RN -Monitor WBC and temperature curve Endo: NAD -Avoid hypoglycemia -SSI -Accu-Cheks q 6 Heme: Leukocytosis -Heparin subq -Trend CBC -s/p 1 unit prbc -Transfuse hemoglobin less than 7 -SCDs to BLE while in bed Advance Care Planning - Disease education, care plan, diagnoses, and prognosis were discussed patient's , Carly Lopez, and patient daughter, Kaylee Warren, who translated for #[phone]. They reported that patient was following at [facility] for his ALS and during recent hospitalization at [facility] they were told nothing else can be offered to patient at this time and patient was discharge home with home hospice and PO morphine. First hospice visit was on , 04/01 however, patient became unresponsive 04/02 and they brought in to the hospital. - Goal of care and code status were also addressed at that time. Family wants to wait for a couple days to see how patient respond to current treatment before making a decision. All questions and concerns were addressed at this time. Patient family acknowledged understanding and agreement with care plan. -Patient remains a FULL CODE status. -04/05: Discussion at bedside with interpreting service with Dr. Valdivia and family state they would discuss next steps amongst themselves and let healthcare team know of decisions -04/06: extensive discussion with family ( and son) with Dr. Grayson regarding goals of care -04/08: Extensive discussion with with the use of calculus teacher line regarding goals of care; no decision made. Possible consult to surgery for trach/PEG early next week. -04/09: Discussion with and her sister with Dr. Grayson and then with Dr. Pineda-> Consulted surgery for trach/peg -04/30 Insurance Denied LTAC, plan for possible SNF placement now. Case management to arrange -Family declined SNF -Awaiting discharge home with ventilator setup for home care due to need for ventilation secondary to trachestomy -DC will be prolonged for 1 week d/t need to remve wound mesh placed by surgery on 05/17 The high probability of a clinically significant, sudden or life threatening deterioration of the [resp] system(s) required my full and direct attention, intervention and personal management. The aggregate critical care time was [60] minutes. 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 Work-up in the emergency department revealed leukocytosis, elevated troponin and hyponatremia and CXR revealed moderate to large pleural effusion on the right. Patient was having agonal breathing in the emergency department and was intubated. Patient was admitted to the hospitalist service with consults to [facility], cardiology and infectious disease for further work-up. Hospital Course to Date: 04/03: Intubated and Sedated on versed gtt, RASS-5. CT head/brain noted with no acute intracranial abnormality. Plan to initiated precededx gtt and wean off versed for a RASS goal of 0 to -2. CT chect also reviewed, findings are most consistent with acute bronchopneumonia. Continue empiric IV Abx, vent adjustment per CCM. ID consulted. Continue to F/U on cultures. Titrate pressor for MAP above 65. Medical records requested from [facility]. 04/04: Remains stable on the vent, easily arousable on precedex gtt, not following commands. Plan for SAT/SBT today. PRN analgesia for CPOT greater than 3. Fevers improved, cultures and procal pending. Continue current IV abx, ID also consulted. Remains on low dose pressors, titrate pressors for a MAP above 65. 04/05: Long discussion with family with use of translation phone with [facility] regarding goals of care. Family to have meeting amongst themselves and informed care team of decisions. Fentanyl drip added for respiratory distress. Remains on Precedex drip. Antibiotics per ID. Given 2L NS bolus with levophed gtt 04/06: Family discussion with Dr. Grayson for goals of care. CXR shows possible mucus plug, continue CPT as FiO2 is being able to be weaned. Potassium repleted. Weaning fentnyl gtt. 04/07: Ultrasound guided thoracentesis today scheduled, inadequate amount of pleural effusion on so not completed. Patient was started on Levophed overnight which was weaned off this morning however had to be started twice a day. Remains on fentanyl and Precedex. Cardiology discontinued BB and ACEi in setting of hypotension. 04/08: COVID-19 PCR negative. Routine EEG ordered by cardiology which showed ST changes, cardiology aware. They will continue conservative treatment. Repeat troponins 0.030 which are less than admit of 0.048. Dr. Grayson had a long di scussion with with the use of calculus teacher today at bedside and has not made a decision regarding goals of care. Possible consult to surgery for trach/PEG early next week. Continues to require Precedex and fentanyl drip for sedation. Carvedilol/lisinopril discontinued as patient is continuously on Levophed. 04/09: No acute events reported overnight, remains on fentanyl, Precedex and Lev ophed drips. Dr. Grayson and Dr. Pineda updated family at bedside extensively today. Consulted surgery for trach/PEG. COVID-19 PCR negative. 04/10: Patient noted to have desaturation episodes, FiO2 increased slightly to 35%. Will add Mucomyst. Remains on fentanyl and Precedex. Off of Levophed. Surgery consulted for trach/PEG. 04/11: FiO2 increased over night likely related to hypoxia, continues on fent gtt, weaning precedex gtt as he is also on Seroquel. Will d/w CCM re scheduled or prn oxycodone 04/12: Periods of hypoxia and tachycardia this am. Symptoms improved post deep suction and tracheal lavage, Repeat CXR noted with no significant change. Continue CPT and mucomyst. Plan for possible trach/PEG tomorrow by general surgery. 04/13: Remains stable on the vent. Patient is wake and tracking but does not follow simple commands. No report of hypoxia from overnight, continue CPT and mucomyst. Plan for track and PEG today by General Surgery. Plan for LTAC placement post procedure, case management to arrange. 04/14: VIRGILIO overnight, Trach and PEG postponed for today by general surgery. Plan for LTAC placement post procedure, case management to arrange. 04/15: S/p Trach and PEG. Up to 80% FiO2 this am, this am CXR noted suggesting possible mucus plug. D/W CCM plan for bronch today. Continue CPT and mucomyst. Plan of care thoroughly discussed with patient's and son (who translated for ) at the bedside. Per , quality improvement consultant had already discussed the risks and benefits of the procedure yesterday. She verbalized understanding and agreed with procedure and current care plan, consent signed. Okay to use PEG-tube for meds this am, resume TF once okay by general Surgery. Case management to arrange LTAC placement. 04/16: s/p Bronchocopy by CCM. FiO2 down to 60%, angela 10 this am. This am CXR with moderate improvement. Continue CPT and mucomyst, wean Fio2 as tolerated for SPO2 above 92%. Patient is tolerating TF, advance to goal as ordered. Possible LTAC placement, case management to arrange. 04/17: VIRGILIO overnight. remains stable on the vent, recent CXR and this am ABG noted. Continue CPT and mucomyst, wean Fio2 as tolerated. 04/18: Remains stable on the vent, Fio2 down to 55% and peep of 8 this am. Continue to wean as tolerated, CPT, and mucomyst. Dsiposition- LTAC placement, case management to arrange. 04/19: No acute events overnight. Continue current management. 04/20: No acute events overnight, continue current management 04/21: Patient had chest ultrasound which showed trace pleural effusions, chest x-ray improved after the addition of Mucomyst yesterday. FiO2 55-65%. No acute events overnight. more interactive today. 04/22: Seroquel changed to BID, FiO2 was increased to 60%. RT increased FIO2 to 100 d/t desaturation into the 80s but was able to wean down. CCM increased PEEP and decreased FiO2. 04/23: CCM increase PEEP, no acute events reported overnight. 04/24: Spoke to RT about decreasing FiO2 as tolerated. No acute events reported overnight. Continue supportive management. 04/25: Weaning as tolerated. no acute events overnight. RT to attempt CPAP again today 04/26: VIRGILIO overnight. Patient failed PSV trial again this morning. Continue supportive management and daily PST trial. 04/27: Patient failed PSV trial again this am due to episodes of apnea. Continue daily PSV trial as tolerated. Case management to arrange LTAC placement 04/28: Remains stable. Continue daily PSV trial as tolerated. Awaiting approval for LTAC 04/29: VIRGILIO overnight. Continue daily PSV trial. Awaiting approval for LTAC, case management to arrange. 04/30: Patient continue to fail PSV trial. Per case management patient was denied for LTAC, now possible SNF placement. Case managemen to arrange. Continue supportive measures and daily PSV trial as tolerated. 05/01: VIRGILIO overnight. Continue supportive measures and daily PSV trial as to lerated. Possible SNF placement. 05/02: Continue supportive measures and daily PSV trial as tolerated. Possible SNF placement, case management to arrange 05/03: no acute events overnight, CM arranging home vent setup. Family declined SNF. 05/04: RN/RT reports thin secretions, increase in FiO2 for decreased oxygen on ABG. No acute events overnight. 05/05: Family scheduled for teaching session today at 2pm. Increase in FiO2 overnight to 45%. Awaiting vent setup for home care for ventilation secondary to tracheostomy. 05/06: No acute events reported overnight, T-max 100.9. FiO2 45%. Awaiting d ischarge home with vent when teaching is completed 05/07: No acute events reported overnight, Awaiting discharge home with vent when teaching is completed 05/08: No acute events reported overnight, Awaiting discharge home with vent when teaching is completed 05/09: no acute events reported overnight. Ordered routine labs today. Family continuing with vent training. Anticipate discharge home this week possibly on Tuesday. 05/10: VIRGILIO overnight. Continue current supportive measures and family training at the bedside. Plan for discharge home tomorrow. 05/11: Discharge home today. senior administrative support at 12pm 05/12: Discharge cancelled yesterday. Patient desated on home vent at max setting. Home vent is not sufficient to support patient's ventilation need. D/w CCM, Dr. Valdivia, who recommend SNF placement at this time. Patient's family notified at the bedside. All questions and concerns were address at this time. Further discussion on alternative placement to be determine and discussed with patient's family and case management today. The respiratory therapist from [facility] is schedule to come at 1400 today for further assessment. 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; WOCN consult placed 05-18 ID and gen surg consult 05/19: s/p sacral wound debridement with Dr. Jerome with wound vac and mesh placement. Per Dr. Jerome patient will need to either stay in the hospital 1 week to be taken back to the OR for removal of mesh on wound or may be discharged but will have to visit the wound clinic in 2 weeks. We will alert egg caser. No acute events overnight. 05/20: Remains with leukocytosis, wound VAC in place. Discharge requested to be postponed by surgery. Remains on meropenem and vancomycin. No acute events reported overnight. Hospitalist Physical - Constitutional Vitals: Temp Pulse Resp BP Pulse Ox 99.4 F 110 H 22 96/64 97 05/20/22 08:00 05/20/22 13:00 05/20/22 13:00 05/20/22 13:00 05/20/22 13:00 General appearance: Present: no acute distress, cachectic, other (trach/) - EENT Eyes: Present: PERRL, EOM intact ENT: dentition normal - Neck Neck: Present: normal ROM - Respiratory Respiratory effort: normal Respiratory: bilateral: CTA, diminished - Cardiovascular Rhythm: regular Heart Sounds: Present: S1 & S2. Absent: systolic murmur, diastolic murmur - Extremities Extremities: no ischemia, pulses intact, pulses symmetrical, No edema, normal temperature, normal color Peripheral Pulses: within normal limits - Abdominal General gastrointestinal: soft, non-tender, non-distended, normal bowel sounds - Integumentary Integumentary: Present: warm, dry - Psychiatric Psychiatric: cooperative - Neurologic Neurologic: CNII-XII intact, other (gross movement to BUE spontanously and FC with UE, not movement to BLE) - Allied Health Allied health notes reviewed: nursing, RT, social work HEART Score - HEART Score Troponin: Troponin T 0.031 ng/mL (0.00-0.029) H 04/08/22 17:47 Results - Labs CBC & Chem 7: 05/20/22 04:40 05/20/22 04:40 Labs: Laboratory Last Values WBC 13.3 K/mm3 (4.5-11.0) H 05/20/22 04:40 RBC 2.57 M/mm3 (3.65-5.03) L 05/20/22 04:40 Hgb 7.1 gm/dl (11.8-15.2) L 05/20/22 04:40 Hct 22.2 % (35.5-45.6) L 05/20/22 04:40 MCV 86 fl (84-94) 05/20/22 04:40 MCH 28 pg (28-32) 05/20/22 04:40 MCHC 32 % (32-34) 05/20/22 04:40 RDW 16.3 % (13.2-15.2) H 05/20/22 04:40 Plt Count 303 K/mm3 (140-440) 05/20/22 04:40 Lymph % (Auto) 8.1 % (13.4-35.0) L 05/09/22 15:15 [place] % (Auto) 4.9 % (0.0-7.3) 05/09/22 15:15 Eos % (Auto) 0.6 % (0.0-4.3) 05/09/22 15:15 Baso % (Auto) 0.3 % (0.0-1.8) 05/09/22 15:15 Lymph # (Auto) 0.9 K/mm3 (1.2-5.4) L 05/09/22 15:15 [place] # (Auto) 0.5 K/mm3 (0.0-0.8) 05/09/22 15:15 Eos # (Auto) 0.1 K/mm3 (0.0-0.4) 05/09/22 15:15 Baso # (Auto) 0.0 K/mm3 (0.0-0.1) 05/09/22 15:15 Add Manual Diff Complete 05/17/22 03:41 Total Counted 100 05/17/22 03:41 Seg Neutrophils % Recreation Worker 05/17/22 03:41 Seg Neuts % (Manual) 96.0 % (40.0-70.0) H 05/17/22 03:41 Band Neutrophils % 0 % 05/17/22 03:41 Lymphocytes % (Manual) 1.0 % (13.4-35.0) L 05/17/22 03:41 Reactive Lymphs % (Man) 0 % 05/17/22 03:41 Monocytes % (Manual) 3.0 % (0.0-7.3) 05/17/22 03:41 Eosinophils % (Manual) 0 % (0.0-4.3) 05/17/22 03:41 Basophils % (Manual) 0 % (0.0-1.8) 05/17/22 03:41 Metamyelocytes % 0 % 05/17/22 03:41 Myelocytes % 0 % 05/17/22 03:41 Promyelocytes % 0 % 05/17/22 03:41 Blast Cells % 0 % 05/17/22 03:41 Nucleated RBC % Not Reportable 05/17/22 03:41 Seg Neutrophils # 9.2 K/mm3 (1.8-7.7) H 05/09/22 15:15 Seg Neutrophils # Man 15.6 K/mm3 (1.8-7.7) H 05/17/22 03:41 Band Neutrophils # 0.0 K/mm3 05/17/22 03:41 Lymphocytes # (Manual) 0.2 K/mm3 (1.2-5.4) L 05/17/22 03:41 Abs React Lymphs (Man) 0.0 K/mm3 05/17/22 03:41 Monocytes # (Manual) 0.5 K/mm3 (0.0-0.8) 05/17/22 03:41 Eosinophils # (Manual) 0.0 K/mm3 (0.0-0.4) 05/17/22 03:41 Basophils # (Manual) 0.0 K/mm3 (0.0-0.1) 05/17/22 03:41 Metamyelocytes # 0.0 K/mm3 05/17/22 03:41 Myelocytes # 0.0 K/mm3 05/17/22 03:41 Promyelocytes # 0.0 K/mm3 05/17/22 03:41 Blast Cells # 0.0 K/mm3 05/17/22 03:41 WBC Morphology Not Reportable 05/17/22 03:41 Hypersegmented Neuts Not Reportable 05/17/22 03:41 Hyposegmented Neuts Not Reportable 05/17/22 03:41 Hypogranular Neuts Not Reportable 05/17/22 03:41 Smudge Cells Not Reportable 05/17/22 03:41 Toxic Granulation Not Reportable 05/17/22 03:41 Toxic Vacuolation Not Reportable 05/17/22 03:41 Dohle Bodies Not Reportable 05/17/22 03:41 Pelger-Huet Anomaly Not Reportable 05/17/22 03:41 Terry Rods Not Reportable 05/17/22 03:41 Platelet Estimate Consistent w auto 05/17/22 03:41 Clumped Platelets Not Reportable 05/17/22 03:41 Plt Clumps, EDTA Not Reportable 05/17/22 03:41 Large Platelets Not Reportable 05/17/22 03:41 Giant Platelets Not Reportable 05/17/22 03:41 Platelet Satelliting Not Reportable 05/17/22 03:41 Plt Morphology Comment Not Reportable 05/17/22 03:41 RBC Morphology Not Reportable 05/17/22 03:41 Dimorphic RBCs Not Reportable 05/17/22 03:41 Polychromasia Not Reportable 05/17/22 03:41 Hypochromasia Not Reportable 05/17/22 03:41 Poikilocytosis Not Reportable 05/17/22 03:41 Anisocytosis 1+ 05/17/22 03:41 Microcytosis Not Reportable 05/17/22 03:41 Macrocytosis Not Reportable 05/17/22 03:41 Spherocytes Not Reportable 05/17/22 03:41 Pappenheimer Bodies Not Reportable 05/17/22 03:41 Sickle Cells Not Reportable 05/17/22 03:41 Target Cells Not Reportable 05/17/22 03:41 Tear Drop Cells Not Reportable 05/17/22 03:41 Ovalocytes Not Reportable 05/17/22 03:41 Helmet Cells Not Reportable 05/17/22 03:41 [place] Bodies Not Reportable 05/17/22 03:41 [place] Rings Not Reportable 05/17/22 03:41 [place] Cells Not Reportable 05/17/22 03:41 Bite Cells Not Reportable 05/17/22 03:41 Crenated Cell Not Reportable 05/17/22 03:41 Elliptocytes Not Reportable 05/17/22 03:41 Acanthocytes (Spur) Not Reportable 05/17/22 03:41 Rouleaux Not Reportable 05/17/22 03:41 Hemoglobin C Crystals Not Reportable 05/17/22 03:41 Schistocytes Not Reportable 05/17/22 03:41 Malaria parasites Not Reportable 05/17/22 03:41 [place] Bodies Not Reportable 05/17/22 03:41 Hem Pathologist Commnt No 05/17/22 03:41 PT 13.6 Sec. (12.2-14.9) 04/13/22 04:30 INR 0.94 (0.87-1.13) 04/13/22 04:30 APTT 35.7 Sec. (24.2-36.6) 04/07/22 03:51 ABG pH 7.385 pH Units (7.350-7.450) 05/19/22 06:10 ABG pCO2 51.9 mm Hg 05/19/22 06:10 ABG pO2 70.5 mm Hg (80.0-90.0) L 05/19/22 06:10 ABG HCO3 30.3 mmol/L (20.0-26.0) H 05/19/22 06:10 ABG O2 Saturation 97.6 % (95.0-99.0) 05/19/22 06:10 ABG O2 Content 8.1 (0.0-44) 05/19/22 06:10 ABG Base Excess 4.9 mmol/L (-2.0-3.0) H 05/19/22 06:10 ABG Hemoglobin 5.9 gm/dl (14.0-18.0) L 05/19/22 06:10 ABG Carboxyhemoglobin 1.5 % (0.0-5.0) 05/19/22 06:10 ABG Methemoglobin 0.4 % (0.0-1.5) 05/19/22 06:10 Oxyhemoglobin 95.8 % (95.0-99.0) 05/19/22 06:10 FiO2 55 % 05/19/22 06:10 Sodium 134 mmol/L (137-145) L 05/20/22 04:40 Potassium 4.3 mmol/L (3.6-5.0) 05/20/22 04:40 Chloride 98.8 mmol/L (98-107) 05/20/22 04:40 Carbon Dioxide 30 mmol/L (22-30) 05/20/22 04:40 Anion Gap 10 mmol/L 05/20/22 04:40 BUN 18 mg/dL (9-20) 05/20/22 04:40 Creatinine < 0.2 mg/dL (0.8-1.3) L 05/20/22 04:40 Estimated GFR > 60 ml/min 05/20/22 04:40 BUN/Creatinine Ratio 90 % 05/20/22 04:40 Glucose 170 mg/dL (75-100) H 05/20/22 04:40 POC Glucose 114 mg/dL (70-105) H 05/20/22 15:08 Lactic Acid 1.90 mmol/L (0.7-2.0) 04/02/22 19:39 Calcium 8.1 mg/dL (8.4-10.2) L 05/20/22 04:40 Phosphorus 3.00 mg/dL (2.5-4.5) 05/20/22 04:40 Magnesium 1.80 mg/dL (1.7-2.3) 05/20/22 04:40 Total Bilirubin 0.80 mg/dL (0.1-1.2) 04/02/22 19:39 AST 15 units/L (5-40) 04/02/22 19:39 ALT 9 units/L (7-56) 04/02/22 19:39 Alkaline Phosphatase 43 units/L (35-129) 04/02/22 19:39 Total Creatine Kinase 46 units/L (55-170) L 04/08/22 17:47 CK-MB (CK-2) 2.6 ng/mL (0.0-4.0) 04/08/22 17:47 CK-MB (CK-2) Rel Index 5.6 (0-4) H 04/08/22 17:47 Troponin T 0.031 ng/mL (0.00-0.029) H 04/08/22 17:47 C-Reactive Protein 31.20 mg/dL (0.00-1.30) H 05/17/22 03:41 Total Protein 4.6 g/dL (6.3-8.2) L 04/02/22 19:39 Albumin 2.7 g/dL (3.9-5) L 04/02/22 19:39 Albumin/Globulin Ratio 1.4 % 04/02/22 19:39 Triglycerides 80 mg/dL (2-149) 04/02/22 19:39 Cholesterol 94 mg/dL (50-199) 04/02/22 19:39 LDL Cholesterol Direct 27 mg/dL (50-130) L 04/02/22 19:39 HDL Cholesterol 47 mg/dL (40-59) 04/02/22 19:39 Cholesterol/HDL Ratio 2.00 % 04/02/22 19:39 Procalcitonin 1.30 ng/mL (<0.15) 05/17/22 03:41 Urine Color Arac[place] (Yellow) 05/18/22 03:50 Urine Turbidity Clear (Clear) 05/18/22 03:50 Urine pH 5.0 (5.0-7.0) 05/18/22 03:50 Ur Specific [place] 1.030 (1.003-1.030) 05/18/22 03:50 Urine Protein 30 mg/dl mg/dL (Negative) 05/18/22 03:50 Urine Glucose (UA) Neg mg/dL (Negative) 05/18/22 03:50 Urine Ketones Tr mg/dL (Negative) 05/18/22 03:50 Urine Blood Neg (Negative) 05/18/22 03:50 Urine Nitrite Neg (Negative) 05/18/22 03:50 Urine Bilirubin Neg (Negative) 05/18/22 03:50 Urine Urobilinogen < 2.0 mg/dL (<2.0) 05/18/22 03:50 Ur Leukocyte Esterase Neg (Negative) 05/18/22 03:50 Urine WBC (Auto) 1.0 /HPF (0.0-6.0) 05/18/22 03:50 Urine RBC (Auto) 1.0 /HPF (0.0-6.0) 05/18/22 03:50 U Epithel Cells (Auto) 2.0 /HPF (0-13.0) 05/18/22 03:50 Urine Bacteria (Auto) 1+ /HPF (Negative) 05/18/22 03:50 Hyaline Casts 1 /LPF 04/05/22 17:45 Urine Mucus Few /HPF 05/18/22 03:50 Nasal Screen MRSA (PCR) Negative (Negative) 04/05/22 12:37 Vancomycin Trough 6.0 ug/mL (5.0-20.0) 04/05/22 18:53 Coronavirus (PCR) Negative (Negative) 04/07/22 14:52 Blood Type O POSITIVE 05/18/22 13:56 Antibody Screen Negative 05/18/22 13:56 Crossmatch See Detail 05/18/22 13:56 Microbiology: Microbiology 05/15/22 03:45 Tracheal Aspirate Sputum Culture - Preliminary Pseudomonas Aeruginosa 05/15/22 04:52 Peripheral/Venous Blood Culture - Final NO GROWTH AFTER 5 DAYS 05/15/22 04:24 Peripheral/Venous Blood Culture - Final NO GROWTH AFTER 5 DAYS 05/19/22 Unknown Buttock Surgical Biopsy Culture - Preliminary 05/17/22 17:04 Peripheral/Venous Blood Culture - Preliminary NO GROWTH AFTER 48 HOURS 05/17/22 17:04 Peripheral/Venous Blood Culture - Preliminary NO GROWTH AFTER 48 HOURS Perez/IV: Voiding Method Condom Catheter Active Medications - Current Medications Current Medications: Generic Name Dose Route Start Last Admin Trade Name Freq PRN Reason Stop Dose Admin Acetaminophen 650 mg 04/02/22 23:53 05/18/22 09:01 Acetaminophen 325 Mg Tab PO 650 mg Q6H PRN Administration Pain MILD(1-3)/Fever >100.5/FAITH Acetylcysteine 200 mg 05/04/22 20:00 05/20/22 08:43 Acetylcysteine 20% 200 Mg/1 Ml *For Inhalation Use* INHALATION 200 mg Q12HRT SEGUNDO Administration Albuterol 2.5 mg 05/05/22 20:00 05/20/22 08:42 Albuterol 2.5 Mg/3 Ml Nebu IH 2.5 mg Q12HRT SEGUNDO Administration Baclofen 10 mg 05/19/22 20:00 05/20/22 09:24 Baclofen 10 Mg Tab PO 10 mg TID SEGUNDO Administration Bisacodyl 10 mg 04/07/22 09:44 04/12/22 10:06 Bisacodyl 10 Mg Rect Supp SD 10 mg QDAY PRN Administration Constipation Docusate Sodium 100 mg 05/18/22 22:00 05/20/22 09:24 Docusate Sodium 100 Mg/10 Ml Oral Liqd FEEDTUBE Not Given BID SEGUNDO Famotidine 20 mg 04/06/22 10:00 05/20/22 09:24 Famotidine 20 Mg Tab FEEDTUBE 20 mg BID SEGUNDO Administration Fentanyl 50 mcg 04/04/22 15:56 05/19/22 21:24 Fentanyl 100 Mcg/2 Ml Inj IV 50 mcg Q2HR PRN Administration For CPOT of greater than 3 Heparin Sodium (Porcine) 5,000 unit 04/03/22 06:00 05/20/22 07:13 Heparin 5,000 Unit/1 Ml Vial SUB-Q 5,000 unit Q8HR SEGUNDO Administration Vancomycin HCl 1 gm in 250 mls @ 167.007 mls/hr 05/17/22 22:00 05/20/22 10:30 Vancomycin/Ns 1 Gm/250 Ml IV 167 mls/hr Q12H SEGUNDO Administration Meropenem 500 mg in 50 mls @ 50 mls/hr 05/18/22 14:00 05/20/22 07:13 Merrem/Ns 500 Mg/50 Ml IV 50 mls/hr Q8H SEGUNDO Administration Insulin Human Lispro 0 unit 05/05/22 06:00 05/20/22 07:13 Insulin Lispro 100 Unit/Ml SUB-Q 1 unit Q8HR SEGUNDO Administration Protocol Magnesium Hydroxide 30 ml 04/02/22 23:53 Magnesium Hydroxide (Mom) Oral Liqd Udc PO Q4H PRN Constipation Metoprolol Tartrate 12.5 mg 05/03/22 13:00 05/20/22 09:20 Metoprolol Tartrate 25 Mg Tab FEEDTUBE Not Given Q6HR SEGUNDO Ondansetron HCl 4 mg 04/02/22 23:53 Ondansetron 4 Mg/2 Ml Inj IV Q8H PRN Nausea And Vomiting Polyethylene Glycol 17 gm 05/18/22 15:00 05/20/22 09:24 Polyethylene Glycol 3350 17 Gm Powder FEEDTUBE Not Given QDAY SEGUNDO Quetiapine Fumarate 50 mg 05/13/22 11:00 05/20/22 09:24 Quetiapine 100 Mg Tab FEEDTUBE 50 mg BID SEGUNDO Administration Scopolamine 1 each 05/12/22 09:00 05/18/22 09:03 Scopolamine Transdermal Patch 72 Hr TD 1 each Q3D SEGUNDO Administration Senna 8.8 mg 05/18/22 22:00 05/19/22 21:18 Sennosides Oral Liqd 8.8 Mg/5 Ml Oral Liqd FEEDTUBE Not Given QHS SEGUNDO Sodium Chloride 10 ml 04/03/22 10:00 05/20/22 09:24 Sodium Chloride 0.9% 10 Ml Flush Syringe IV 10 ml BID SEGUNDO Administration Sodium Chloride 10 ml 04/02/22 23:53 05/16/22 05:10 Sodium Chloride 0.9% 10 Ml Flush Syringe IV 10 ml PRN PRN Administration LINE FLUSH Nutrition/Malnutrition Assess - Dietary Evaluation Nutrition/Malnutrition Findings: Nutrition Notes Start: 04/04/22 13:13 Freq: Status: Active Protocol: Document 05/19/22 12:24 COLLEEN (Rec: 05/19/22 12:48 COLLEEN [email or web address]) Nutrition Notes Initial or Follow up Brief Note Current Diagnosis Coronary Artery Disease, Decubitus(Pressure Ulcer), Sepsis,Respiratory Failure, Malnutrition Other Pertinent Diagnosis HCAP, ALS, Broncopneumonia, NSTEMI, Cardiomyopathy, ... Current Diet NPO (05/19 00:01). Labs/Tests 05/18: Cl 97.9, BUN 23, Crea < 0.2, Glu 128. Pertinent Medications 05/19: Nutritionally unremarkable. Height 5 ft 4.8 in Weight 48.6 kg [place] Body Weight (kg) 61.27 BMI 17.9 Weight change and time frame 0.2 Kg body weight gain 2 days ago and no further changes reported. Weight Status Underweight Subjective/Other Information RD consult for routine F/U on TF tolerance/continuation. Pt currently on NPO due to ongoing procedure; debridement of decubitus sacral wound. TF will resume after that, according to Progress notes. TF advanced as prescribed, and well tolerated, according to RN notes. Pt continues on Mechanical ventilation, O2 saturation @ 96%, according to Physical Assessment Histroy notes. Discharge home was cancelled on 05/11; HomeVent is not sufficient for Pt's needs, MD recommends SNF, but family will think about, according to Progress notes. Percent of energy/protein needs met: Prescribed TF-Osmolite 1.5 Inderjit @ 55 ml/hr provides for energy/protein needs (1,980 Kcal/83 g) during LOS, 102% Kcal; 100% AA. Burn Absent Trauma Absent GI Symptoms Constipation Difficulty In Swallowing,Chewing Food Allergy No Skin Integrity/Comment Sacral open wound. Current % PO Other Minimum of two criteria No #1 Nutrition Diagnosis Inadequate oral intake Diagnosis Progress(for reassessment Continues documentation) Is patient on ventilator? Yes Is Patient Ambulatory and/or Out of Bed No REE-([facility]-confined to bed) [phone] Kcal/Kg value to use for calculation 40 Approximate Energy Requirements Using 1944 kcal/Kg Calculation Used for Recommendations Kcal/kg Additional Notes Protein: 1.5-2 g/Kg ABW; 73-98 g/day. Fluids: 1 ml/Kcal, or as per MD. Nutrition Intervention Nutrition Support: When pertinent, resume TF- Osmolite 1.5 Inderjit @ 55 ml/hr. Flush: 150 ml water Q 4 hr, or as per MD. Kcal 1,980 Protein (gm) 83 Carbohydrates (gm) 269 Fat (gm) 65 Fluid (mL) 1,006 Fiber (gm) 0 % RDI: 102% Kcal; 100% AA. Goal #1 Provide at least 75% of energy /protein needs through Enteral Feeding during LOS. Follow-Up By: 05/20/22 Additional Comments Continue monitoring TF tolerance and BM.
[2022-05-20] MEDS ORDERED: SIMPLE SYRUP 15 ML FEEDTUBE PRN ×2 (15:35)
[2022-05-20] MEDS ORDERED: SODIUM BICARBONATE 325 MG TAB FEEDTUBE PRN (15:35)
[2022-05-20] MEDS ORDERED: LIPASE 10,500/PROTEASE 25,000/AMYLASE 43,750 (UNITS) DR CAP FEEDTUBE PRN (15:35)
[2022-05-20] MEDS: SENNOSIDES ORAL LIQD 8.8 MG/5 ML ORAL LIQD FEEDTUBE SCH (21:16)
[2022-05-21] MEDS: METOPROLOL TARTRATE 25 MG TAB FEEDTUBE SCH ×4 (00:28→17:49)
[2022-05-21] MEDS: INSULIN LISPRO 100 UNIT/ML SUB-Q SCH ×3 (05:29→22:11)
[2022-05-21] MEDS: HEPARIN 5,000 UNIT/1 ML VIAL SUB-Q SCH ×3 (05:30→22:20)
[2022-05-21] MEDS: MEROPENEM/NS 500 MG/50 ML 500 MG/50 ML BAG IV SCH (05:31)
[2022-05-21] MEDS: ACETYLCYSTEINE 20% 200 MG/1 ML *FOR INHALATION USE INHALATION SCH ×2 (08:31→20:28)
[2022-05-21] MEDS: ALBUTEROL 2.5 MG/3 ML NEBU IH SCH ×2 (08:31→20:28)
[2022-05-21] MEDS: SCOPOLAMINE TRANSDERMAL PATCH 72 HR TD SCH (09:06)
[2022-05-21] MEDS: DOCUSATE SODIUM 100 MG/10 ML ORAL LIQD FEEDTUBE SCH ×2 (09:06→22:56)
[2022-05-21] MEDS: POLYETHYLENE GLYCOL 3350 17 GM POWDER FEEDTUBE SCH (09:06)
[2022-05-21] MEDS: BACLOFEN 10 MG TAB PO SCH ×3 (09:07→22:29)
[2022-05-21] MEDS: QUEtiapine 100 MG TAB FEEDTUBE SCH ×2 (09:07→22:18)
[2022-05-21] MEDS: FAMOTIDINE 20 MG TAB FEEDTUBE SCH ×2 (09:07→22:19)
[2022-05-21] MEDS: VANCOMYCIN/NS 1 GM/250 ML 1 GM/250 ML BAG IV SCH ×2 (09:31→22:36)
--- NOTE | 2022-05-21 10:25 | Progress Note ---
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 Protein calorie malnutrition Acute Bronchopneumonia HCAP Hypotension NSTEMI Hypernatremia Acute Metabolic Encephalopathy H/o Amyotrophic Lateral Sclerosis Nonverbal at Baseline Thrombocytopenia Protein Caloric Malnutrition Constipation - continue wound care per RN/WCN/Surgeon (may need repeat debridement) - continue family ventilator and patient care training - continue daily SAT and SBT assessment as tolerated while in hospital - continue to optimize nutritional status - continue care as below otherwise; - bronchoscopy if develops large volume atelectasis - continue mucomyst nebs for thick tenacious secretions - continue scheduled CPT - continue Seroquel for anxiolysis / delirium - continue bronchodilators with pulmonary hygiene per RT - continue to wean supplemental oxygen for target O2 sat's > 90% acutely - VAP bundle addressed - continue lung protective strategies - wean per pulmonary driven protocols otherwise - continue accuchecks with glycemic control per SSI (While critically ill target blood glucose of 140-180 mg/dL; avoid hypoglycemia) - sedation prn for target RASS 0 to -1 - avoid nephrotoxins, renally dose all medications - continue to avoid benzodiazepine's, reduce the possibility of delirium - AB's per ID rec's - prn analgesia per CPOT score - Maintenance of sleep-wake cycle, avoid delirium - continue enteral nutritional support at goal rate as tolerated - G.I. & VTE prophylaxis - PT/OT/ROM exercises - continue mobility protocols for pressure ulcer prophylaxis - Monitor hemodynamics closely - continue other care per attending / other consultants - discharge planning ongoing concurrently COVID SPECIFIC INTERVENTIONS - test negative .... Re-evaluate in am & prn CONDITION: CRITICAL PROGNOSIS: GUARDED CODE STATUS: FULL CODE The high probability of a clinically significant, sudden or life-threatening deterioration of the [respiratory, cardiovascular & neurologic] system(s) r equired my full and direct attention, intervention and personal management. The aggregate critical care time was [32] minutes without overlap. Time includes spent on; [x] Data Review and interpretation [x] Patient assessment and monitoring of vital signs [x] Documentation [x] Medication orders and management Subjective Date of service: 05/21/22 Principal diagnosis: Ac and ch hypercapnic and hypoxemic Resp Failure; ALS; HCAP; Sepsis; NSTEMI Interval history: Patient is seen today for: Acute and chronic hypercapnic and hypoxemic Respiratory Failure; ALS; HCAP; Sepsis; NSTEMI; AMS; Hypernatremia; Thrombocytopenia; Protein Caloric Malnutrition; Constipation Seen and examined at bedside; 24hour events reviewed; nursing and respiratory care staff consulted; no adverse overnight events reported to me; resting peacefully in bed; remains on MVS; denies acute issues today; no emesis or overt aspiration; tolerating home ventilator well Objective Vital Signs - 12hr 05/20/22 05/20/22 05/21/22 23:00 23:24 00:00 Temperature 98.5 F Pulse Rate 113 H 106 H 100 H Pulse Rate [ Bilateral Throughout] Pulse Rate [ From Monitor] Respiratory 21 14 14 Rate Respiratory Rate [Bilateral Throughout] Blood Pressure 94/63 94/63 86/56 O2 Sat by Pulse 96 96 96 Oximetry O2 Sat by Pulse Oximetry [ Assessment] 05/21/22 05/21/22 05/21/22 00:28 00:39 01:00 Temperature Pulse Rate 112 H 111 H 101 H Pulse Rate [ Bilateral Throughout] Pulse Rate [ From Monitor] Respiratory 14 Rate Respiratory Rate [Bilateral Throughout] Blood Pressure 86/56 86/56 89/59 O2 Sat by Pulse 97 98 Oximetry O2 Sat by Pulse Oximetry [ Assessment] 05/21/22 05/21/22 05/21/22 02:00 03:00 04:00 Temperature 99.4 F Pulse Rate 91 H 90 118 H Pulse Rate [ Bilateral Throughout] Pulse Rate [ From Monitor] Respiratory 14 11 L 15 Rate Respiratory Rate [Bilateral Throughout] Blood Pressure 96/61 98/61 109/70 O2 Sat by Pulse 100 97 96 Oximetry O2 Sat by Pulse Oximetry [ Assessment] 05/21/22 05/21/22 05/21/22 04:51 05:00 05:08 Temperature Pulse Rate 116 H 116 H Pulse Rate [ Bilateral Throughout] Pulse Rate [ From Monitor] Respiratory 15 Rate Respiratory Rate [Bilateral Throughout] Blood Pressure 109/70 104/65 O2 Sat by Pulse 95 94 Oximetry O2 Sat by Pulse 96 Oximetry [ Assessment] 05/21/22 05/21/22 05/21/22 05:30 06:00 07:00 Temperature Pulse Rate 102 H 105 H 112 H Pulse Rate [ Bilateral Throughout] Pulse Rate [ From Monitor] Respiratory 13 11 L Rate Respiratory Rate [Bilateral Throughout] Blood Pressure 104/65 101/72 98/63 O2 Sat by Pulse 97 94 Oximetry O2 Sat by Pulse Oximetry [ Assessment] 05/21/22 05/21/22 05/21/22 07:48 08:00 08:30 Temperature 98.2 F Pulse Rate 119 H 111 H Pulse Rate [ Bilateral Throughout] Pulse Rate [ 120 H From Monitor] Respiratory 18 20 Rate Respiratory Rate [Bilateral Throughout] Blood Pressure 94/67 94/67 O2 Sat by Pulse 96 93 93 Oximetry O2 Sat by Pulse Oximetry [ Assessment] 05/21/22 05/21/22 05/21/22 08:32 08:40 09:00 Temperature Pulse Rate 114 H Pulse Rate [ 113 H Bilateral Throughout] Pulse Rate [ From Monitor] Respiratory 21 Rate Respiratory 14 Rate [Bilateral Throughout] Blood Pressure 94/67 O2 Sat by Pulse 93 Oximetry O2 Sat by Pulse 93 Oximetry [ Assessment] Constitutional: no acute distress, alert, other (resting in bed without increased respiratory effort at rest) Eyes: non-icteric ENT: oropharynx moist, other (+ midline tracheostomy to home vent) Neck: supple, no lymphadenopathy, no JVD Effort: normal Ascultation: Bilateral: diminished breath sounds (bases), rhonchi Percussion: Bilateral: not dull Cardiovascular: regular rate and rhythm, other (S1,S2) Gastrointestinal: normoactive bowel sounds, soft, non-tender, non-distended Integumentary: normal, decubitus ulcer (see wound care pictures) Extremities: no cyanosis, no edema, pink and warm, pulses normal Neurologic: pupils equal and round, other (functional quadriplegia) Psychiatric: mood appropriate, affect normal CBC and BMP: 05/26/22 00:31 05/26/22 00:31 ABG, PT/INR, D-dimer: ABG ABG pH 7.385 pH Units (7.350-7.450) 05/19/22 06:10 ABG pCO2 51.9 mm Hg 05/19/22 06:10 ABG pO2 70.5 mm Hg (80.0-90.0) L 05/19/22 06:10 ABG O2 Saturation 97.6 % (95.0-99.0) 05/19/22 06:10 PT/INR, D-dimer PT 13.6 Sec. (12.2-14.9) 04/13/22 04:30 INR 0.94 (0.87-1.13) 04/13/22 04:30 Abnormal lab findings: Abnormal Labs 04/02/22 04/02/22 04/02/22 19:39 19:39 19:39 WBC 14.3 H RBC Hgb Hct MCV 96 H MCHC RDW Plt Count 104 L Lymph % (Auto) [place] % (Auto) Lymph # (Auto) [place] # (Auto) Seg Neutrophils % Seg Neuts % (Manual) 94.0 H Lymphocytes % (Manual) 1.0 L Seg Neutrophils # Seg Neutrophils # Man 13.4 H Lymphocytes # (Manual) 0.1 L PT 15.9 H INR 1.14 H ABG pH ABG pO2 ABG HCO3 ABG O2 Saturation ABG Base Excess ABG Hemoglobin Oxyhemoglobin Sodium 151 H Potassium Chloride Carbon Dioxide BUN Creatinine 0.5 L Glucose POC Glucose Calcium 8.2 L Phosphorus Magnesium 1.60 L Total Creatine Kinase CK-MB (CK-2) Rel Index Troponin T 0.048 H C-Reactive Protein Total Protein 4.6 L Albumin 2.7 L LDL Cholesterol Direct 27 L Urine WBC (Auto) Crossmatch 04/02/22 04/03/22 04/03/22 19:42 05:14 06:30 WBC RBC Hgb Hct MCV MCHC RDW Plt Count Lymph % (Auto) [place] % (Auto) Lymph # (Auto) [place] # (Auto) Seg Neutrophils % Seg Neuts % (Manual) Lymphocytes % (Manual) Seg Neutrophils # Seg Neutrophils # Man Lymphocytes # (Manual) PT INR ABG pH 7.471 H 7.496 H ABG pO2 47.8 L 91.0 H ABG HCO3 30.6 H ABG O2 Saturation 94.4 L ABG Base Excess 6.2 H ABG Hemoglobin 11.0 L 12.8 L Oxyhemoglobin 93.1 L Sodium 149 H Potassium 3.4 L Chloride Carbon Dioxide BUN Creatinine 0.4 L Glucose POC Glucose Calcium Phosphorus Magnesium Total Creatine Kinase CK-MB (CK-2) Rel Index Troponin T C-Reactive Protein Total Protein Albumin LDL Cholesterol Direct Urine WBC (Auto) Crossmatch 04/04/22 04/04/22 04/04/22 04:18 04:18 05:50 WBC 11.8 H RBC Hgb Hct MCV MCHC RDW Plt Count 132 L Lymph % (Auto) [place] % (Auto) Lymph # (Auto) [place] # (Auto) Seg Neutrophils % Seg Neuts % (Manual) Lymphocytes % (Manual) Seg Neutrophils # Seg Neutrophils # Man Lymphocytes # (Manual) PT INR ABG pH 7.517 H ABG pO2 115.5 H ABG HCO3 29.9 H ABG O2 Saturation ABG Base Excess 6.7 H ABG Hemoglobin 12.3 L Oxyhemoglobin Sodium Potassium 3.5 L Chloride Carbon Dioxide 31 H BUN Creatinine 0.3 L Glucose 153 H POC Glucose Calcium Phosphorus 1.40 L Magnesium 1.50 L Total Creatine Kinase CK-MB (CK-2) Rel Index Troponin T C-Reactive Protein 31.60 H Total Protein Albumin LDL Cholesterol Direct Urine WBC (Auto) Crossmatch 04/05/22 04/05/22 04/05/22 02:50 05:25 11:28 WBC RBC Hgb Hct MCV MCHC RDW Plt Count Lymph % (Auto) [place] % (Auto) Lymph # (Auto) [place] # (Auto) Seg Neutrophils % Seg Neuts % (Manual) Lymphocytes % (Manual) Seg Neutrophils # Seg Neutrophils # Man Lymphocytes # (Manual) PT INR ABG pH 7.455 H ABG pO2 50.7 L ABG HCO3 30.5 H ABG O2 Saturation 89.4 L ABG Base Excess 5.9 H ABG Hemoglobin 11.8 L Oxyhemoglobin 88.2 L Sodium Potassium Chloride Carbon Dioxide 32 H BUN Creatinine 0.2 L Glucose 110 H POC Glucose 124 H Calcium 7.9 L Phosphorus Magnesium Total Creatine Kinase CK-MB (CK-2) Rel Index Troponin T C-Reactive Protein Total Protein Albumin LDL Cholesterol Direct Urine WBC (Auto) Crossmatch 04/05/22 04/05/22 04/06/22 17:45 Unknown 04:00 WBC RBC 3.55 L Hgb 11.1 L 11.5 L Hct 33.2 L 35.1 L MCV MCHC RDW Plt Count 113 L 114 L Lymph % (Auto) [place] % (Auto) Lymph # (Auto) [place] # (Auto) Seg Neutrophils % Seg Neuts % (Manual) Lymphocytes % (Manual) Seg Neutrophils # Seg Neutrophils # Man Lymphocytes # (Manual) PT INR ABG pH ABG pO2 ABG HCO3 ABG O2 Saturation ABG Base Excess ABG Hemoglobin Oxyhemoglobin Sodium Potassium Chloride Carbon Dioxide BUN Creatinine Glucose POC Glucose Calcium Phosphorus Magnesium Total Creatine Kinase CK-MB (CK-2) Rel Index Troponin T C-Reactive Protein Total Protein Albumin LDL Cholesterol Direct Urine WBC (Auto) 8.0 H Crossmatch 04/06/22 04/06/22 04/07/22 04:00 08:30 00:04 WBC RBC Hgb Hct MCV MCHC RDW Plt Count Lymph % (Auto) [place] % (Auto) Lymph # (Auto) [place] # (Auto) Seg Neutrophils % Seg Neuts % (Manual) Lymphocytes % (Manual) Seg Neutrophils # Seg Neutrophils # Man Lymphocytes # (Manual) PT INR ABG pH ABG pO2 60.8 L ABG HCO3 30.5 H ABG O2 Saturation 93.3 L ABG Base Excess 4.9 H ABG Hemoglobin 12.4 L Oxyhemoglobin 92.1 L Sodium Potassium 3.0 L Chloride Carbon Dioxide BUN Creatinine < 0.2 L Glucose 130 H POC Glucose 117 H Calcium 8.1 L Phosphorus Magnesium Total Creatine Kinase CK-MB (CK-2) Rel Index Troponin T C-Reactive Protein Total Protein Albumin LDL Cholesterol Direct Urine WBC (Auto) Crossmatch 04/07/22 04/07/22 04/07/22 03:51 03:51 03:51 WBC 14.6 H RBC 3.57 L Hgb 11.1 L Hct 33.2 L MCV MCHC RDW Plt Count 118 L Lymph % (Auto) 4.3 L [place] % (Auto) 8.8 H Lymph # (Auto) 0.6 L [place] # (Auto) 1.3 H Seg Neutrophils % 86.6 H Seg Neuts % (Manual) Lymphocytes % (Manual) Seg Neutrophils # 12.7 H Seg Neutrophils # Man Lymphocytes # (Manual) PT 15.2 H INR ABG pH ABG pO2 ABG HCO3 ABG O2 Saturation ABG Base Excess ABG Hemoglobin Oxyhemoglobin Sodium 133 L Potassium Chloride 96.0 L Carbon Dioxide 31 H BUN Creatinine 0.2 L Glucose 130 H POC Glucose Calcium 8.0 L Phosphorus Magnesium Total Creatine Kinase CK-MB (CK-2) Rel Index Troponin T C-Reactive Protein Total Protein Albumin LDL Cholesterol Direct Urine WBC (Auto) Crossmatch 04/07/22 04/07/22 04/08/22 04:25 09:10 04:49 WBC 16.1 H RBC 3.54 L Hgb 10.9 L Hct 33.3 L MCV MCHC RDW Plt Count Lymph % (Auto) [place] % (Auto) Lymph # (Auto) [place] # (Auto) Seg Neutrophils % Seg Neuts % (Manual) Lymphocytes % (Manual) Seg Neutrophils # Seg Neutrophils # Man Lymphocytes # (Manual) PT INR ABG pH ABG pO2 71.0 L 63.4 L ABG HCO3 31.5 H 40.0 H ABG O2 Saturation 94.9 L ABG Base Excess 5.9 H 13.6 H ABG Hemoglobin 11.3 L 9.0 L Oxyhemoglobin 93.6 L Sodium Potassium Chloride Carbon Dioxide BUN Creatinine Glucose POC Glucose Calcium Phosphorus Magnesium Total Creatine Kinase CK-MB (CK-2) Rel Index Troponin T C-Reactive Protein Total Protein Albumin LDL Cholesterol Direct Urine WBC (Auto) Crossmatch 04/08/22 04/08/22 04/08/22 04:49 09:53 10:25 WBC RBC Hgb Hct MCV MCHC RDW Plt Count Lymph % (Auto) [place] % (Auto) Lymph # (Auto) [place] # (Auto) Seg Neutrophils % Seg Neuts % (Manual) Lymphocytes % (Manual) Seg Neutrophils # Seg Neutrophils # Man Lymphocytes # (Manual) PT INR ABG pH ABG pO2 ABG HCO3 34.7 H ABG O2 Saturation ABG Base Excess 7.9 H ABG Hemoglobin 11.0 L Oxyhemoglobin Sodium 136 L Potassium Chloride 97.7 L Carbon Dioxide 33 H BUN Creatinine 0.2 L Glucose 155 H POC Glucose Calcium Phosphorus Magnesium Total Creatine Kinase CK-MB (CK-2) Rel Index Troponin T 0.030 H C-Reactive Protein Total Protein Albumin LDL Cholesterol Direct Urine WBC (Auto) Crossmatch 04/08/22 04/08/22 04/08/22 11:19 17:47 18:06 WBC RBC Hgb Hct MCV MCHC RDW Plt Count Lymph % (Auto) [place] % (Auto) Lymph # (Auto) [place] # (Auto) Seg Neutrophils % Seg Neuts % (Manual) Lymphocytes % (Manual) Seg Neutrophils # Seg Neutrophils # Man Lymphocytes # (Manual) PT INR ABG pH ABG pO2 ABG HCO3 ABG O2 Saturation ABG Base Excess ABG Hemoglobin Oxyhemoglobin Sodium Potassium Chloride Carbon Dioxide BUN Creatinine Glucose POC Glucose 121 H Calcium Phosphorus Magnesium Total Creatine Kinase 31 L 46 L CK-MB (CK-2) Rel Index 6.4 H 5.6 H Troponin T 0.030 H 0.031 H C-Reactive Protein Total Protein Albumin LDL Cholesterol Direct Urine WBC (Auto) Crossmatch 04/09/22 04/09/2222 04:35 04:35 11:24 WBC 11.5 H RBC 3.16 L Hgb 9.9 L Hct 29.4 L MCV MCHC RDW Plt Count 131 L Lymph % (Auto) [place] % (Auto) Lymph # (Auto) [place] # (Auto) Seg Neutrophils % Seg Neuts % (Manual) Lymphocytes % (Manual) Seg Neutrophils # Seg Neutrophils # Man Lymphocytes # (Manual) PT INR ABG pH ABG pO2 ABG HCO3 ABG O2 Saturation ABG Base Excess ABG Hemoglobin Oxyhemoglobin Sodium Potassium Chloride 97.1 L Carbon Dioxide 35 H BUN Creatinine < 0.2 L Glucose 145 H POC Glucose 147 H Calcium Phosphorus Magnesium Total Creatine Kinase CK-MB (CK-2) Rel Index Troponin T C-Reactive Protein Total Protein Albumin LDL Cholesterol Direct Urine WBC (Auto) Crossmatch 04/09/22 04/09/22 04/09/22 13:00 17:32 23:48 WBC RBC Hgb Hct MCV MCHC RDW Plt Count Lymph % (Auto) [place] % (Auto) Lymph # (Auto) [place] # (Auto) Seg Neutrophils % Seg Neuts % (Manual) Lymphocytes % (Manual) Seg Neutrophils # Seg Neutrophils # Man Lymphocytes # (Manual) PT INR ABG pH ABG pO2 66.6 L ABG HCO3 38.2 H ABG O2 Saturation 94.4 L ABG Base Excess 10.7 H ABG Hemoglobin 10.7 L Oxyhemoglobin 92.8 L Sodium Potassium Chloride Carbon Dioxide BUN Creatinine Glucose POC Glucose 143 H 114 H Calcium Phosphorus Magnesium Total Creatine Kinase CK-MB (CK-2) Rel Index Troponin T C-Reactive Protein Total Protein Albumin LDL Cholesterol Direct Urine WBC (Auto) Crossmatch 04/10/22 04/10/22 04/10/22 04:48 04:48 05:34 WBC RBC 2.91 L Hgb 9.1 L Hct 27.7 L MCV 95 H MCHC RDW Plt Count Lymph % (Auto) [place] % (Auto) Lymph # (Auto) [place] # (Auto) Seg Neutrophils % Seg Neuts % (Manual) Lymphocytes % (Manual) Seg Neutrophils # Seg Neutrophils # Man Lymphocytes # (Manual) PT INR ABG pH ABG pO2 ABG HCO3 ABG O2 Saturation ABG Base Excess ABG Hemoglobin Oxyhemoglobin Sodium Potassium Chloride 95.7 L Carbon Dioxide 38 H BUN Creatinine < 0.2 L Glucose 118 H POC Glucose 127 H Calcium Phosphorus Magnesium Total Creatine Kinase CK-MB (CK-2) Rel Index Troponin T C-Reactive Protein Total Protein Albumin LDL Cholesterol Direct Urine WBC (Auto) Crossmatch 04/10/22 04/11/22 04/11/22 23:10 04:15 04:15 WBC 17.2 H RBC 2.98 L Hgb 9.2 L Hct 27.9 L MCV MCHC RDW Plt Count Lymph % (Auto) [place] % (Auto) Lymph # (Auto) [place] # (Auto) Seg Neutrophils % Seg Neuts % (Manual) Lymphocytes % (Manual) Seg Neutrophils # Seg Neutrophils # Man Lymphocytes # (Manual) PT INR ABG pH ABG pO2 ABG HCO3 ABG O2 Saturation ABG Base Excess ABG Hemoglobin Oxyhemoglobin Sodium Potassium Chloride 96.1 L Carbon Dioxide 35 H BUN Creatinine < 0.2 L Glucose 138 H POC Glucose 106 H Calcium 8.3 L Phosphorus Magnesium Total Creatine Kinase CK-MB (CK-2) Rel Index Troponin T C-Reactive Protein Total Protein Albumin LDL Cholesterol Direct Urine WBC (Auto) Crossmatch 04/11/22 04/11/22 04/11/22 05:31 13:18 16:20 WBC RBC Hgb Hct MCV MCHC RDW Plt Count Lymph % (Auto) [place] % (Auto) Lymph # (Auto) [place] # (Auto) Seg Neutrophils % Seg Neuts % (Manual) Lymphocytes % (Manual) Seg Neutrophils # Seg Neutrophils # Man Lymphocytes # (Manual) PT INR ABG pH ABG pO2 57.8 L ABG HCO3 40.5 H ABG O2 Saturation 90.6 L ABG Base Excess 12.6 H ABG Hemoglobin 10.5 L Oxyhemoglobin 89.0 L Sodium Potassium Chloride Carbon Dioxide BUN Creatinine Glucose POC Glucose 129 H 132 H Calcium Phosphorus Magnesium Total Creatine Kinase CK-MB (CK-2) Rel Index Troponin T C-Reactive Protein Total Protein Albumin LDL Cholesterol Direct Urine WBC (Auto) Crossmatch 04/11/22 04/11/22 04/12/22 17:29 23:17 04:00 WBC 17.4 H RBC 2.96 L Hgb 9.0 L Hct 28.0 L MCV 95 H MCHC RDW Plt Count Lymph % (Auto) [place] % (Auto) Lymph # (Auto) [place] # (Auto) Seg Neutrophils % Seg Neuts % (Manual) Lymphocytes % (Manual) Seg Neutrophils # Seg Neutrophils # Man Lymphocytes # (Manual) PT INR ABG pH ABG pO2 ABG HCO3 ABG O2 Saturation ABG Base Excess ABG Hemoglobin Oxyhemoglobin Sodium Potassium Chloride Carbon Dioxide BUN Creatinine Glucose POC Glucose 125 H 151 H Calcium Phosphorus Magnesium Total Creatine Kinase CK-MB (CK-2) Rel Index Troponin T C-Reactive Protein Total Protein Albumin LDL Cholesterol Direct Urine WBC (Auto) Crossmatch 04/12/22 04/12/22 04/12/22 04:00 17:03 23:39 WBC RBC Hgb Hct MCV MCHC RDW Plt Count Lymph % (Auto) [place] % (Auto) Lymph # (Auto) [place] # (Auto) Seg Neutrophils % Seg Neuts % (Manual) Lymphocytes % (Manual) Seg Neutrophils # Seg Neutrophils # Man Lymphocytes # (Manual) PT INR ABG pH ABG pO2 ABG HCO3 ABG O2 Saturation ABG Base Excess ABG Hemoglobin Oxyhemoglobin Sodium Potassium Chloride 97.4 L Carbon Dioxide 37 H BUN Creatinine < 0.2 L Glucose 127 H POC Glucose 106 H 107 H Calcium Phosphorus Magnesium Total Creatine Kinase CK-MB (CK-2) Rel Index Troponin T C-Reactive Protein Total Protein Albumin LDL Cholesterol Direct Urine WBC (Auto) Crossmatch 04/13/22 04/13/22 04/13/22 04:30 04:30 17:39 WBC 14.1 H RBC 2.66 L Hgb 8.4 L Hct 25.5 L MCV 96 H MCHC RDW Plt Count Lymph % (Auto) [place] % (Auto) Lymph # (Auto) [place] # (Auto) Seg Neutrophils % Seg Neuts % (Manual) Lymphocytes % (Manual) Seg Neutrophils # Seg Neutrophils # Man Lymphocytes # (Manual) PT INR ABG pH ABG pO2 ABG HCO3 ABG O2 Saturation ABG Base Excess ABG Hemoglobin Oxyhemoglobin Sodium Potassium Chloride 93.9 L Carbon Dioxide 39 H BUN Creatinine < 0.2 L Glucose POC Glucose 134 H Calcium Phosphorus 1.90 L Magnesium Total Creatine Kinase CK-MB (CK-2) Rel Index Troponin T C-Reactive Protein Total Protein Albumin LDL Cholesterol Direct Urine WBC (Auto) Crossmatch 04/14/22 04/14/22 04/14/22 05:03 05:03 09:10 WBC 15.6 H RBC 3.02 L Hgb 9.3 L Hct 28.8 L MCV 95 H MCHC RDW Plt Count Lymph % (Auto) [place] % (Auto) Lymph # (Auto) [place] # (Auto) Seg Neutrophils % Seg Neuts % (Manual) Lymphocytes % (Manual) Seg Neutrophils # Seg Neutrophils # Man Lymphocytes # (Manual) PT INR ABG pH ABG pO2 66.9 L ABG HCO3 44.5 H ABG O2 Saturation ABG Base Excess 17.2 H ABG Hemoglobin 8.1 L Oxyhemoglobin 94.8 L Sodium Potassium Chloride 93.8 L Carbon Dioxide 42 H* BUN Creatinine < 0.2 L Glucose 117 H POC Glucose Calcium Phosphorus Magnesium Total Creatine Kinase CK-MB (CK-2) Rel Index Troponin T C-Reactive Protein Total Protein Albumin LDL Cholesterol Direct Urine WBC (Auto) Crossmatch 04/15/22 04/15/22 04/16/22 04:44 04:44 04:16 WBC 13.0 H 12.6 H RBC 3.19 L 3.09 L Hgb 9.6 L 9.5 L Hct 30.2 L 29.1 L MCV 95 H MCHC RDW Plt Count 456 H Lymph % (Auto) [place] % (Auto) Lymph # (Auto) [place] # (Auto) Seg Neutrophils % Seg Neuts % (Manual) Lymphocytes % (Manual) Seg Neutrophils # Seg Neutrophils # Man Lymphocytes # (Manual) PT INR ABG pH ABG pO2 ABG HCO3 ABG O2 Saturation ABG Base Excess ABG Hemoglobin Oxyhemoglobin Sodium Potassium Chloride 95.5 L Carbon Dioxide 37 H BUN Creatinine < 0.2 L Glucose POC Glucose Calcium Phosphorus Magnesium Total Creatine Kinase CK-MB (CK-2) Rel Index Troponin T C-Reactive Protein Total Protein Albumin LDL Cholesterol Direct Urine WBC (Auto) Crossmatch 04/16/22 04/16/22 04/16/22 04:16 05:00 14:00 WBC RBC Hgb Hct MCV MCHC RDW Plt Count Lymph % (Auto) [place] % (Auto) Lymph # (Auto) [place] # (Auto) Seg Neutrophils % Seg Neuts % (Manual) Lymphocytes % (Manual) Seg Neutrophils # Seg Neutrophils # Man Lymphocytes # (Manual) PT INR ABG pH 7.324 L ABG pO2 55.6 L ABG HCO3 45.3 H ABG O2 Saturation 87.1 L ABG Base Excess 16.6 H ABG Hemoglobin 8.6 L Oxyhemoglobin 85.7 L Sodium Potassium Chloride 97.6 L Carbon Dioxide 36 H BUN Creatinine < 0.2 L Glucose 109 H POC Glucose 120 H Calcium Phosphorus Magnesium Total Creatine Kinase CK-MB (CK-2) Rel Index Troponin T C-Reactive Protein Total Protein Albumin LDL Cholesterol Direct Urine WBC (Auto) Crossmatch 04/17/22 04/17/22 04/17/22 04:36 04:36 04:57 WBC 14.4 H RBC 3.08 L Hgb 9.4 L Hct 29.0 L MCV MCHC RDW Plt Count Lymph % (Auto) [place] % (Auto) Lymph # (Auto) [place] # (Auto) Seg Neutrophils % Seg Neuts % (Manual) Lymphocytes % (Manual) Seg Neutrophils # Seg Neutrophils # Man Lymphocytes # (Manual) PT INR ABG pH ABG pO2 ABG HCO3 ABG O2 Saturation ABG Base Excess ABG Hemoglobin Oxyhemoglobin Sodium Potassium Chloride 95.9 L Carbon Dioxide 39 H BUN Creatinine < 0.2 L Glucose 140 H POC Glucose 137 H Calcium 8.3 L Phosphorus Magnesium Total Creatine Kinase CK-MB (CK-2) Rel Index Troponin T C-Reactive Protein Total Protein Albumin LDL Cholesterol Direct Urine WBC (Auto) Crossmatch 04/17/22 04/17/22 04/18/22 09:15 18:01 04:20 WBC 11.2 H RBC 3.00 L Hgb 9.3 L Hct 28.6 L MCV 95 H MCHC RDW Plt Count Lymph % (Auto) [place] % (Auto) Lymph # (Auto) [place] # (Auto) Seg Neutrophils % Seg Neuts % (Manual) Lymphocytes % (Manual) Seg Neutrophils # Seg Neutrophils # Man Lymphocytes # (Manual) PT INR ABG pH 7.345 L ABG pO2 ABG HCO3 48.2 H ABG O2 Saturation ABG Base Excess 19.2 H ABG Hemoglobin 9.7 L Oxyhemoglobin Sodium Potassium Chloride Carbon Dioxide BUN Creatinine Glucose POC Glucose 129 H Calcium Phosphorus Magnesium Total Creatine Kinase CK-MB (CK-2) Rel Index Troponin T C-Reactive Protein Total Protein Albumin LDL Cholesterol Direct Urine WBC (Auto) Crossmatch 04/18/22 04/18/22 04/18/22 04:20 17:35 23:50 WBC RBC Hgb Hct MCV MCHC RDW Plt Count Lymph % (Auto) [place] % (Auto) Lymph # (Auto) [place] # (Auto) Seg Neutrophils % Seg Neuts % (Manual) Lymphocytes % (Manual) Seg Neutrophils # Seg Neutrophils # Man Lymphocytes # (Manual) PT INR ABG pH ABG pO2 ABG HCO3 ABG O2 Saturation ABG Base Excess ABG Hemoglobin Oxyhemoglobin Sodium Potassium Chloride 96.8 L Carbon Dioxide 43 H* BUN 22 H Creatinine < 0.2 L Glucose 137 H POC Glucose 128 H 123 H Calcium 8.2 L Phosphorus Magnesium Total Creatine Kinase CK-MB (CK-2) Rel Index Troponin T C-Reactive Protein Total Protein Albumin LDL Cholesterol Direct Urine WBC (Auto) Crossmatch 04/19/22 04/19/22 04/19/22 04:08 04:08 08:50 WBC 16.8 H RBC 3.18 L Hgb 9.8 L Hct 30.1 L MCV 95 H MCHC RDW Plt Count Lymph % (Auto) [place] % (Auto) Lymph # (Auto) [place] # (Auto) Seg Neutrophils % Seg Neuts % (Manual) Lymphocytes % (Manual) Seg Neutrophils # Seg Neutrophils # Man Lymphocytes # (Manual) PT INR ABG pH ABG pO2 56.0 L ABG HCO3 47.1 H ABG O2 Saturation 93.3 L ABG Base Excess 20.1 H ABG Hemoglobin 8.0 L Oxyhemoglobin 91.8 L Sodium Potassium Chloride 96.2 L Carbon Dioxide 40 H BUN 24 H Creatinine < 0.2 L Glucose 125 H POC Glucose Calcium 8.3 L Phosphorus Magnesium Total Creatine Kinase CK-MB (CK-2) Rel Index Troponin T C-Reactive Protein Total Protein Albumin LDL Cholesterol Direct Urine WBC (Auto) Crossmatch 04/19/22 04/20/22 04/20/22 12:02 00:40 04:49 WBC 14.7 H RBC 3.36 L Hgb 10.3 L Hct 32.0 L MCV 95 H MCHC RDW Plt Count Lymph % (Auto) [place] % (Auto) Lymph # (Auto) [place] # (Auto) Seg Neutrophils % Seg Neuts % (Manual) Lymphocytes % (Manual) Seg Neutrophils # Seg Neutrophils # Man Lymphocytes # (Manual) PT INR ABG pH ABG pO2 ABG HCO3 ABG O2 Saturation ABG Base Excess ABG Hemoglobin Oxyhemoglobin Sodium Potassium Chloride Carbon Dioxide BUN Creatinine Glucose POC Glucose 124 H 140 H Calcium Phosphorus Magnesium Total Creatine Kinase CK-MB (CK-2) Rel Index Troponin T C-Reactive Protein Total Protein Albumin LDL Cholesterol Direct Urine WBC (Auto) Crossmatch 04/20/22 04/20/22 04/21/22 05:36 11:40 04:05 WBC RBC Hgb Hct MCV MCHC RDW Plt Count Lymph % (Auto) Dillon % (Auto) Lymph # (Auto) Dillon # (Auto) Seg Neutrophils % Seg Neuts % (Manual) Lymphocytes % (Manual) Seg Neutrophils # Seg Neutrophils # Man Lymphocytes # (Manual) PT INR ABG pH ABG pO2 ABG HCO3 ABG O2 Saturation ABG Base Excess ABG Hemoglobin Oxyhemoglobin Sodium Potassium Chloride 93.4 L Carbon Dioxide 40 H BUN 25 H Creatinine < 0.2 L Glucose 122 H POC Glucose 125 H 128 H Calcium Phosphorus Magnesium Total Creatine Kinase CK-MB (CK-2) Rel Index Troponin T C-Reactive Protein Total Protein Albumin LDL Cholesterol Direct Urine WBC (Auto) Crossmatch 04/21/22 04/22/22 04/22/22 10:31 05:03 05:03 WBC 12.6 H 12.7 H RBC 2.83 L 2.96 L Hgb 8.6 L 9.0 L Hct 26.9 L 28.0 L MCV 95 H 95 H MCHC RDW Plt Count Lymph % (Auto) Dillon % (Auto) Lymph # (Auto) Dillon # (Auto) Seg Neutrophils % Seg Neuts % (Manual) Lymphocytes % (Manual) Seg Neutrophils # Seg Neutrophils # Man Lymphocytes # (Manual) PT INR ABG pH ABG pO2 ABG HCO3 ABG O2 Saturation ABG Base Excess ABG Hemoglobin Oxyhemoglobin Sodium Potassium Chloride 93.9 L Carbon Dioxide 43 H* BUN 23 H Creatinine < 0.2 L Glucose 137 H POC Glucose Calcium Phosphorus Magnesium Total Creatine Kinase CK-MB (CK-2) Rel Index Troponin T C-Reactive Protein Total Protein Albumin LDL Cholesterol Direct Urine WBC (Auto) Crossmatch 04/22/22 04/23/22 04/24/22 08:34 09:40 04:29 WBC 14.4 H RBC 2.74 L Hgb 8.4 L Hct 25.7 L MCV MCHC RDW Plt Count Lymph % (Auto) Dillon % (Auto) Lymph # (Auto) [place] # (Auto) Seg Neutrophils % Seg Neuts % (Manual) Lymphocytes % (Manual) Seg Neutrophils # Seg Neutrophils # Man Lymphocytes # (Manual) PT INR ABG pH ABG pO2 54.1 L 56.8 L ABG HCO3 48.5 H 49.0 H ABG O2 Saturation 92.1 L 90.9 L ABG Base Excess 20.9 H 20.8 H ABG Hemoglobin 9.0 L 8.4 L Oxyhemoglobin 90.6 L 89.5 L Sodium Potassium Chloride Carbon Dioxide BUN Creatinine Glucose POC Glucose Calcium Phosphorus Magnesium Total Creatine Kinase CK-MB (CK-2) Rel Index Troponin T C-Reactive Protein Total Protein Albumin LDL Cholesterol Direct Urine WBC (Auto) Crossmatch 04/24/22 04/25/22 04/26/22 04:29 09:00 04:22 WBC RBC 2.88 L Hgb 8.9 L Hct 26.8 L MCV MCHC RDW Plt Count Lymph % (Auto) Dillon % (Auto) Lymph # (Auto) [place] # (Auto) Seg Neutrophils % Seg Neuts % (Manual) Lymphocytes % (Manual) Seg Neutrophils # Seg Neutrophils # Man Lymphocytes # (Manual) PT INR ABG pH 7.457 H ABG pO2 66.7 L ABG HCO3 42.6 H ABG O2 Saturation ABG Base Excess 15.3 H ABG Hemoglobin 8.8 L Oxyhemoglobin 94.1 L Sodium Potassium Chloride 90.7 L Carbon Dioxide 40 H BUN Creatinine < 0.2 L Glucose 133 H POC Glucose Calcium Phosphorus Magnesium Total Creatine Kinase CK-MB (CK-2) Rel Index Troponin T C-Reactive Protein Total Protein Albumin LDL Cholesterol Direct Urine WBC (Auto) Crossmatch 04/26/22 04/29/22 04/29/22 04:22 04:18 04:18 WBC 13.5 H RBC 2.96 L Hgb 8.9 L Hct 27.7 L MCV MCHC RDW Plt Count Lymph % (Auto) Dillon % (Auto) Lymph # (Auto) [place] # (Auto) Seg Neutrophils % Seg Neuts % (Manual) Lymphocytes % (Manual) Seg Neutrophils # Seg Neutrophils # Man Lymphocytes # (Manual) PT INR ABG pH ABG pO2 ABG HCO3 ABG O2 Saturation ABG Base Excess ABG Hemoglobin Oxyhemoglobin Sodium Potassium Chloride 93.2 L 95.2 L Carbon Dioxide 37 H 38 H BUN Creatinine < 0.2 L < 0.2 L Glucose 114 H 116 H POC Glucose Calcium Phosphorus Magnesium Total Creatine Kinase CK-MB (CK-2) Rel Index Troponin T C-Reactive Protein Total Protein Albumin LDL Cholesterol Direct Urine WBC (Auto) Crossmatch 05/02/22 05/03/22 05/03/22 04:29 04:02 04:02 WBC 12.9 H 12.3 H RBC 2.82 L 2.83 L Hgb 8.4 L 8.4 L Hct 26.2 L 26.0 L MCV MCHC RDW Plt Count Lymph % (Auto) Dillon % (Auto) Lymph # (Auto) [place] # (Auto) Seg Neutrophils % Seg Neuts % (Manual) Lymphocytes % (Manual) Seg Neutrophils # Seg Neutrophils # Man Lymphocytes # (Manual) PT INR ABG pH ABG pO2 ABG HCO3 ABG O2 Saturation ABG Base Excess ABG Hemoglobin Oxyhemoglobin Sodium 134 L Potassium Chloride 90.5 L Carbon Dioxide 38 H BUN 21 H Creatinine < 0.2 L Glucose 126 H POC Glucose Calcium Phosphorus Magnesium Total Creatine Kinase CK-MB (CK-2) Rel Index Troponin T C-Reactive Protein Total Protein Albumin LDL Cholesterol Direct Urine WBC (Auto) Crossmatch 05/03/22 05/03/22 05/04/22 12:02 17:42 09:36 WBC RBC Hgb Hct MCV MCHC RDW Plt Count Lymph % (Auto) [place] % (Auto) Lymph # (Auto) [place] # (Auto) Seg Neutrophils % Seg Neuts % (Manual) Lymphocytes % (Manual) Seg Neutrophils # Seg Neutrophils # Man Lymphocytes # (Manual) PT INR ABG pH ABG pO2 55.4 L ABG HCO3 43.7 H ABG O2 Saturation 87.4 L ABG Base Excess 16.1 H ABG Hemoglobin 9.1 L Oxyhemoglobin 85.7 L Sodium Potassium Chloride Carbon Dioxide BUN Creatinine Glucose POC Glucose 139 H 131 H Calcium Phosphorus Magnesium Total Creatine Kinase CK-MB (CK-2) Rel Index Troponin T C-Reactive Protein Total Protein Albumin LDL Cholesterol Direct Urine WBC (Auto) Crossmatch 05/04/22 05/04/22 05/05/22 17:08 23:10 04:23 WBC 14.4 H RBC 2.75 L Hgb 8.2 L Hct 25.2 L MCV MCHC RDW Plt Count Lymph % (Auto) Dillon % (Auto) Lymph # (Auto) [place] # (Auto) Seg Neutrophils % Seg Neuts % (Manual) Lymphocytes % (Manual) Seg Neutrophils # Seg Neutrophils # Man Lymphocytes # (Manual) PT INR ABG pH ABG pO2 ABG HCO3 ABG O2 Saturation ABG Base Excess ABG Hemoglobin Oxyhemoglobin Sodium Potassium Chloride Carbon Dioxide BUN Creatinine Glucose POC Glucose 124 H 115 H Calcium Phosphorus Magnesium Total Creatine Kinase CK-MB (CK-2) Rel Index Troponin T C-Reactive Protein Total Protein Albumin LDL Cholesterol Direct Urine WBC (Auto) Crossmatch 05/05/22 05/05/22 05/06/22 04:23 21:39 05:13 WBC RBC Hgb Hct MCV MCHC RDW Plt Count Lymph % (Auto) [place] % (Auto) Lymph # (Auto) [place] # (Auto) Seg Neutrophils % Seg Neuts % (Manual) Lymphocytes % (Manual) Seg Neutrophils # Seg Neutrophils # Man Lymphocytes # (Manual) PT INR ABG pH ABG pO2 ABG HCO3 ABG O2 Saturation ABG Base Excess ABG Hemoglobin Oxyhemoglobin Sodium Potassium Chloride 91.3 L Carbon Dioxide 38 H BUN 23 H Creatinine < 0.2 L Glucose 128 H POC Glucose 141 H 136 H Calcium Phosphorus Magnesium Total Creatine Kinase CK-MB (CK-2) Rel Index Troponin T C-Reactive Protein Total Protein Albumin LDL Cholesterol Direct Urine WBC (Auto) Crossmatch 05/07/22 05/07/22 05/08/22 05:29 22:15 05:48 WBC RBC Hgb Hct MCV MCHC RDW Plt Count Lymph % (Auto) Dillon % (Auto) Lymph # (Auto) [place] # (Auto) Seg Neutrophils % Seg Neuts % (Manual) Lymphocytes % (Manual) Seg Neutrophils # Seg Neutrophils # Man Lymphocytes # (Manual) PT INR ABG pH ABG pO2 ABG HCO3 ABG O2 Saturation ABG Base Excess ABG Hemoglobin Oxyhemoglobin Sodium Potassium Chloride Carbon Dioxide BUN Creatinine Glucose POC Glucose 125 H 142 H 122 H Calcium Phosphorus Magnesium Total Creatine Kinase CK-MB (CK-2) Rel Index Troponin T C-Reactive Protein Total Protein Albumin LDL Cholesterol Direct Urine WBC (Auto) Crossmatch 05/08/22 05/08/22 05/09/22 14:04 21:48 15:15 WBC RBC 2.61 L Hgb 7.7 L Hct 23.2 L MCV MCHC RDW Plt Count Lymph % (Auto) 8.1 L Dillon % (Auto) Lymph # (Auto) 0.9 L [place] # (Auto) Seg Neutrophils % 86.1 H Seg Neuts % (Manual) Lymphocytes % (Manual) Seg Neutrophils # 9.2 H Seg Neutrophils # Man Lymphocytes # (Manual) PT INR ABG pH ABG pO2 ABG HCO3 ABG O2 Saturation ABG Base Excess ABG Hemoglobin Oxyhemoglobin Sodium Potassium Chloride Carbon Dioxide BUN Creatinine Glucose POC Glucose 112 H 107 H Calcium Phosphorus Magnesium Total Creatine Kinase CK-MB (CK-2) Rel Index Troponin T C-Reactive Protein Total Protein Albumin LDL Cholesterol Direct Urine WBC (Auto) Crossmatch 05/09/22 05/09/22 05/09/22 15:15 15:39 21:15 WBC RBC Hgb Hct MCV MCHC RDW Plt Count Lymph % (Auto) [place] % (Auto) Lymph # (Auto) [place] # (Auto) Seg Neutrophils % Seg Neuts % (Manual) Lymphocytes % (Manual) Seg Neutrophils # Seg Neutrophils # Man Lymphocytes # (Manual) PT INR ABG pH ABG pO2 ABG HCO3 ABG O2 Saturation ABG Base Excess ABG Hemoglobin Oxyhemoglobin Sodium Potassium Chloride 92.9 L Carbon Dioxide 40 H BUN Creatinine < 0.2 L Glucose 141 H POC Glucose 118 H 112 H Calcium Phosphorus Magnesium Total Creatine Kinase CK-MB (CK-2) Rel Index Troponin T C-Reactive Protein Total Protein Albumin LDL Cholesterol Direct Urine WBC (Auto) Crossmatch 05/10/22 05/12/22 05/13/22 15:14 00:25 04:02 WBC 13.3 H RBC 3.14 L Hgb 8.7 L Hct 28.0 L MCV MCHC 31 L RDW Plt Count Lymph % (Auto) Dillon % (Auto) Lymph # (Auto) [place] # (Auto) Seg Neutrophils % Seg Neuts % (Manual) Lymphocytes % (Manual) Seg Neutrophils # Seg Neutrophils # Man Lymphocytes # (Manual) PT INR ABG pH ABG pO2 ABG HCO3 ABG O2 Saturation ABG Base Excess ABG Hemoglobin Oxyhemoglobin Sodium Potassium Chloride Carbon Dioxide BUN Creatinine Glucose POC Glucose 113 H 158 H Calcium Phosphorus Magnesium Total Creatine Kinase CK-MB (CK-2) Rel Index Troponin T C-Reactive Protein Total Protein Albumin LDL Cholesterol Direct Urine WBC (Auto) Crossmatch 05/13/22 05/13/22 05/13/22 04:02 06:32 13:09 WBC RBC Hgb Hct MCV MCHC RDW Plt Count Lymph % (Auto) Dillon % (Auto) Lymph # (Auto) [place] # (Auto) Seg Neutrophils % Seg Neuts % (Manual) Lymphocytes % (Manual) Seg Neutrophils # Seg Neutrophils # Man Lymphocytes # (Manual) PT INR ABG pH ABG pO2 ABG HCO3 ABG O2 Saturation ABG Base Excess ABG Hemoglobin Oxyhemoglobin Sodium 135 L Potassium Chloride 91.1 L Carbon Dioxide 40 H BUN 23 H Creatinine < 0.2 L Glucose 139 H POC Glucose 129 H 117 H Calcium Phosphorus Magnesium Total Creatine Kinase CK-MB (CK-2) Rel Index Troponin T C-Reactive Protein Total Protein Albumin LDL Cholesterol Direct Urine WBC (Auto) Crossmatch 05/13/22 05/14/22 05/14/22 21:28 05:44 07:35 WBC RBC Hgb Hct MCV MCHC RDW Plt Count Lymph % (Auto) [place] % (Auto) Lymph # (Auto) [place] # (Auto) Seg Neutrophils % Seg Neuts % (Manual) Lymphocytes % (Manual) Seg Neutrophils # Seg Neutrophils # Man Lymphocytes # (Manual) PT INR ABG pH ABG pO2 ABG HCO3 ABG O2 Saturation ABG Base Excess ABG Hemoglobin Oxyhemoglobin Sodium Potassium Chloride Carbon Dioxide BUN Creatinine Glucose POC Glucose 109 H 130 H 125 H Calcium Phosphorus Magnesium Total Creatine Kinase CK-MB (CK-2) Rel Index Troponin T C-Reactive Protein Total Protein Albumin LDL Cholesterol Direct Urine WBC (Auto) Crossmatch 05/14/22 05/14/22 05/15/22 16:26 23:44 10:44 WBC 13.9 H RBC 2.71 L Hgb 7.5 L Hct 23.5 L MCV MCHC RDW 15.9 H Plt Count Lymph % (Auto) [place] % (Auto) Lymph # (Auto) [place] # (Auto) Seg Neutrophils % Seg Neuts % (Manual) Lymphocytes % (Manual) Seg Neutrophils # Seg Neutrophils # Man Lymphocytes # (Manual) PT INR ABG pH ABG pO2 ABG HCO3 ABG O2 Saturation ABG Base Excess ABG Hemoglobin Oxyhemoglobin Sodium Potassium Chloride Carbon Dioxide BUN Creatinine Glucose POC Glucose 112 H 189 H Calcium Phosphorus Magnesium Total Creatine Kinase CK-MB (CK-2) Rel Index Troponin T C-Reactive Protein Total Protein Albumin LDL Cholesterol Direct Urine WBC (Auto) Crossmatch 05/15/22 05/16/22 05/16/22 10:44 14:50 21:36 WBC RBC Hgb Hct MCV MCHC RDW Plt Count Lymph % (Auto) [place] % (Auto) Lymph # (Auto) [place] # (Auto) Seg Neutrophils % Seg Neuts % (Manual) Lymphocytes % (Manual) Seg Neutrophils # Seg Neutrophils # Man Lymphocytes # (Manual) PT INR ABG pH ABG pO2 ABG HCO3 ABG O2 Saturation ABG Base Excess ABG Hemoglobin Oxyhemoglobin Sodium 135 L Potassium 3.3 L D Chloride 91.5 L Carbon Dioxide 33 H D BUN 21 H Creatinine < 0.2 L Glucose 118 H POC Glucose 133 H 123 H Calcium 7.9 L Phosphorus Magnesium Total Creatine Kinase CK-MB (CK-2) Rel Index Troponin T C-Reactive Protein Total Protein Albumin LDL Cholesterol Direct Urine WBC (Auto) Crossmatch 05/17/22 05/17/22 05/17/22 03:41 03:41 05:51 WBC 16.2 H RBC 2.53 L Hgb 7.0 L Hct 21.5 L MCV MCHC RDW 16.2 H Plt Count Lymph % (Auto) Dillon % (Auto) Lymph # (Auto) [place] # (Auto) Seg Neutrophils % Seg Neuts % (Manual) 96.0 H Lymphocytes % (Manual) 1.0 L Seg Neutrophils # Seg Neutrophils # Man 15.6 H Lymphocytes # (Manual) 0.2 L PT INR ABG pH ABG pO2 ABG HCO3 ABG O2 Saturation ABG Base Excess ABG Hemoglobin Oxyhemoglobin Sodium 132 L Potassium Chloride 95.0 L Carbon Dioxide BUN 22 H Creatinine < 0.2 L Glucose 122 H POC Glucose 123 H Calcium Phosphorus Magnesium Total Creatine Kinase CK-MB (CK-2) Rel Index Troponin T C-Reactive Protein 31.20 H Total Protein Albumin LDL Cholesterol Direct Urine WBC (Auto) Crossmatch 05/17/22 05/17/22 05/18/22 07:53 21:03 05:41 WBC 15.0 H RBC 2.58 L Hgb 7.1 L Hct 22.3 L MCV MCHC RDW 16.1 H Plt Count Lymph % (Auto) [place] % (Auto) Lymph # (Auto) [place] # (Auto) Seg Neutrophils % Seg Neuts % (Manual) Lymphocytes % (Manual) Seg Neutrophils # Seg Neutrophils # Man Lymphocytes # (Manual) PT INR ABG pH ABG pO2 ABG HCO3 ABG O2 Saturation ABG Base Excess ABG Hemoglobin Oxyhemoglobin Sodium Potassium Chloride Carbon Dioxide BUN Creatinine Glucose POC Glucose 106 H 123 H Calcium Phosphorus Magnesium Total Creatine Kinase CK-MB (CK-2) Rel Index Troponin T C-Reactive Protein Total Protein Albumin LDL Cholesterol Direct Urine WBC (Auto) Crossmatch 05/18/22 05/18/22 05/18/22 05:41 13:56 21:08 WBC RBC Hgb Hct MCV MCHC RDW Plt Count Lymph % (Auto) [place] % (Auto) Lymph # (Auto) [place] # (Auto) Seg Neutrophils % Seg Neuts % (Manual) Lymphocytes % (Manual) Seg Neutrophils # Seg Neutrophils # Man Lymphocytes # (Manual) PT INR ABG pH ABG pO2 ABG HCO3 ABG O2 Saturation ABG Base Excess ABG Hemoglobin Oxyhemoglobin Sodium Potassium Chloride 97.9 L Carbon Dioxide BUN 23 H Creatinine < 0.2 L Glucose 128 H POC Glucose 137 H Calcium Phosphorus Magnesium Total Creatine Kinase CK-MB (CK-2) Rel Index Troponin T C-Reactive Protein Total Protein Albumin LDL Cholesterol Direct Urine WBC (Auto) Crossmatch See Detail 05/18/22 05/19/22 05/20/22 23:21 06:10 00:43 WBC 13.5 H RBC 2.53 L Hgb 7.2 L Hct 21.5 L MCV MCHC RDW 16.4 H Plt Count Lymph % (Auto) [place] % (Auto) Lymph # (Auto) [place] # (Auto) Seg Neutrophils % Seg Neuts % (Manual) Lymphocytes % (Manual) Seg Neutrophils # Seg Neutrophils # Man Lymphocytes # (Manual) PT INR ABG pH ABG pO2 70.5 L ABG HCO3 30.3 H ABG O2 Saturation ABG Base Excess 4.9 H ABG Hemoglobin 5.9 L Oxyhemoglobin Sodium Potassium Chloride Carbon Dioxide BUN Creatinine Glucose POC Glucose 151 H Calcium Phosphorus Magnesium Total Creatine Kinase CK-MB (CK-2) Rel Index Troponin T C-Reactive Protein Total Protein Albumin LDL Cholesterol Direct Urine WBC (Auto) Crossmatch 05/20/22 05/20/22 05/20/22 04:40 04:40 07:08 WBC 13.3 H RBC 2.57 L Hgb 7.1 L Hct 22.2 L MCV MCHC RDW 16.3 H Plt Count Lymph % (Auto) Dillon % (Auto) Lymph # (Auto) [place] # (Auto) Seg Neutrophils % Seg Neuts % (Manual) Lymphocytes % (Manual) Seg Neutrophils # Seg Neutrophils # Man Lymphocytes # (Manual) PT INR ABG pH ABG pO2 ABG HCO3 ABG O2 Saturation ABG Base Excess ABG Hemoglobin Oxyhemoglobin Sodium 134 L Potassium Chloride Carbon Dioxide BUN Creatinine < 0.2 L Glucose 170 H POC Glucose 174 H Calcium 8.1 L Phosphorus Magnesium Total Creatine Kinase CK-MB (CK-2) Rel Index Troponin T C-Reactive Protein Total Protein Albumin LDL Cholesterol Direct Urine WBC (Auto) Crossmatch 05/20/22 05/21/22 15:08 05:13 WBC RBC Hgb Hct MCV MCHC RDW Plt Count Lymph % (Auto) [place] % (Auto) Lymph # (Auto) [place] # (Auto) Seg Neutrophils % Seg Neuts % (Manual) Lymphocytes % (Manual) Seg Neutrophils # Seg Neutrophils # Man Lymphocytes # (Manual) PT INR ABG pH ABG pO2 ABG HCO3 ABG O2 Saturation ABG Base Excess ABG Hemoglobin Oxyhemoglobin Sodium Potassium Chloride Carbon Dioxide BUN Creatinine Glucose POC Glucose 114 H 149 H Calcium Phosphorus Magnesium Total Creatine Kinase CK-MB (CK-2) Rel Index Troponin T C-Reactive Protein Total Protein Albumin LDL Cholesterol Direct Urine WBC (Auto) Crossmatch Allied health notes reviewed: RT
--- NOTE | 2022-05-21 11:00 | Progress Note ---
Assessment and Plan Cultures: 04/02/2022 urine culture: No growth 04/02/2022 sputum culture: Pseudomonas, Enterobacter 04/02/2022 blood culture: Bacillus in 1 set 04/05/2022 blood culture: No growth 04/15/2022 right middle lobe bronchial washings: Pseudomonas aeruginosa 05/15/2022 blood culture: No growth 05/17/2022 blood culture: no growth 05/17/2022 sputum culture: Pseudomonas aeruginosa x 2 types 05/19/2022 sacral wound culture: GNR. 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 S/P debridement on 05/19/2022. #Hospital-acquired pneumonia: previously completed abx for Pseudomonas, Enterobacter. #Acute v/s now chronic respiratory failure: on the vent. S/P trach, PEG #ALS: Was on home hospice. #Bacillus bacteremia: likely contaminant. Recs: -meropenem de-escalated to IV levofloxacin 500 mg daily x 3 more days -continue IV vancomycin for now, stop if wound cultures negative for MRSA -f/u debridement wound cultures Carmen German MD, [facility] ([facility] O: [phone] F: [phone] C: [phone] Subjective Date of service: 05/21/22 Principal diagnosis: Ac and ch hypercapnic and hypoxemic Resp Failure; ALS; HCAP; Sepsis; NSTEMI Interval history: No fever. Remains on the vent. Family at bedside. Objective - Exam Narrative Exam: Physical Exam: Constitutional: awake, on the vent, trach + Head, Ears, Nose: Normocephalic, atraumatic. External ears, nose normal Eyes: Conjunctivae/corneas clear. No icterus. No ptosis. Neck: trach + Cardiovascular: S1, S2 + Respiratory: AE fair bilaterally and equal GI: Soft, bowel sounds +, PEG + Musculoskeletal: No pedal edema, no cyanosis. Skin: sacral wound with dressing, not directly examined Hem/Lymphatic: No palpable cervical or supraclavicular nodes. No lymphangitis Psych: no agitation Neurological: awake, on the vent, exam limited - Constitutional Vitals: Vital Signs Temp Pulse Resp BP Pulse Ox 98.2 F 114 H 21 94/67 93 05/21/22 08:00 05/21/22 09:00 05/21/22 09:00 05/21/22 09:00 05/21/22 09:00 Temperature -Last 24 Hours Temperature 98.2 F Temperature 99.4 F Temperature 98.5 F Temperature 98.7 F Temperature 98.4 F Temperature 98.6 F - Labs CBC & Chem 7: 05/20/22 04:40 05/20/22 04:40 Labs: Abnormal lab results 05/20/22 05/21/22 Range/Units 15:08 05:13 POC Glucose 114 H 149 H (70-105) mg/dL
--- NOTE | 2022-05-21 12:39 | Progress Note ---
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, recently hospitalized at [facility] admitted for acute hypoxemic respiratory failure 2/2 pneumonia Neuro: h/o ALS -s/p precedex, fentanyl gtt -Reorientation as needed -Maintain sleep-wake cycle -As needed analgesia -CT head with no acute intracranial process -Per family patient is nonverbal at baseline but responsive -Seroquel BID Cardiac: Suspect ischemic coronary artery disease, ST, h/o cardiomyopathy -Cardiology consulted, appreciate recommendations -continue conservative management -Blood pressure monitoring per protocol -s/p Vasopressor support with Levophed -Echocardiogram shows ejection fraction of 40 to 45%, mild global hypokinesis of left ventricle -Nitro patch, BB Respiratory: Acute hypoxic respiratory failure -CCM consulted, appreciate recommendations -Intubated on 04/02 with a 7.50 ETT attempt at the lips -s/p trach on 04/14 and s/p bronch on 04/15 -A.m. vent settings: PRVC Rate 14, TV 500, Peep 12, FiO2 55% -See RT notes for titration -SCpo patch -VAP bundle -SPO2 monitoring GI: Moderate protein calorie malnutrition -24 hours + 725 mL -PPI -Peg 04/14 -NTR consulted for tube feedings -BR: Senokot/colace, MiraLAX : Metabolic Alkalosis -Record intake and output -Renally dose medications -Avoid nephrotoxic medications -Bladder scan q 8 hours -trend BMP ID: Sepsis, Acute Bronchopneumonia, HAP (Pseudomonas and Enterobacter tracheal aspirate), blood culture with bacillus species, Stage 4 sacra ulcer -Infectious disease. wcon, and general surgery consulted, appreciate recommen dation-> signed off -Per infectious disease patient was recently admitted to [facility] but disc harged home with home hospice and not giving antibiotics -04/15 Tracheal aspirate with Pseudomonas aeruginosa, Enterobacter aerogenes -04/02 blood culture with bacillus species, 04/05 blood culture NGTD -MRSA (-) -Abx per ID -s/p cefepime for 14 days -Currently on Meropenum de escalated to IV levofloxacin 500 mg daily x 3 more days -05/19 s/p wound debridement, mesh placement to wound bed and wound vac placement -wound cultures pending -Dressing changes per RN -Monitor WBC and temperature curve Endo: NAD -Avoid hypoglycemia -SSI -Accu-Cheks q 6 Heme: Leukocytosis -Heparin subq -Trend CBC -s/p 1 unit prbc -Transfuse hemoglobin less than 7 -SCDs to BLE while in bed Advance Care Planning - Disease education, care plan, diagnoses, and prognosis were discussed patient's , Carly Lopez, and patient daughter, Kaylee Warren, who translated for #[phone]. They reported that patient was following at [facility] for his ALS and during recent hospitalization at [facility] they were told nothing else can be offered to patient at this time and patient was discharge home with home hospice and PO morphine. First hospice visit was on , 04/01 however, patient became unresponsive 04/02 and they brought in to the hospital. - Goal of care and code status were also addressed at that time. Family wants to wait for a couple days to see how patient respond to current treatment before making a decision. All questions and concerns were addressed at this time. Patient family acknowledged understanding and agreement with care plan. -Patient remains a FULL CODE status. -04/05: Discussion at bedside with interpreting service with Dr. Valdivia and family state they would discuss next steps amongst themselves and let healthcare team know of decisions -04/06: extensive discussion with family ( and son) with Dr. Grayson regarding goals of care -04/08: Extensive discussion with with the use of interpreter and translator line regarding goals of care; no decision made. Possible consult to surgery for trach/PEG early next week. -04/09: Discussion with and her sister with Dr. Grayson and then with Dr. Pineda-> Consulted surgery for trach/peg -04/30 Insurance Denied LTAC, plan for possible SNF placement now. Case management to arrange -Family declined SNF -Awaiting discharge home with ventilator setup for home care due to need for ventilation secondary to trachestomy -DC will be prolonged for 1 week d/t need to remve wound mesh placed by surgery on 05/17 The high probability of a clinically significant, sudden or life threatening deterioration of the [resp] system(s) required my full and direct attention, intervention and personal management. The aggregate critical care time was [60] minutes. 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 Work-up in the emergency department revealed leukocytosis, elevated troponin and hyponatremia and CXR revealed moderate to large pleural effusion on the right. Patient was having agonal breathing in the emergency department and was intubated. Patient was admitted to the hospital ist service with consults to [facility], cardiology and infectious disease for further work-up. Hospital Course to Date: 04/03: Intubated and Sedated on versed gtt, RASS-5. CT head/brain noted with no acute intracranial abnormality. Plan to initiated precededx gtt and wean off brad sed for a RASS goal of 0 to -2. CT chect also reviewed, findings are most consistent with acute bronchopneumonia. Continue empiric IV Abx, vent adjustment per CCM. ID consulted. Continue to F/U on cultures. Titrate pressor for MAP above 65. Medical records requested from [facility]. 04/04: Remains stable on the vent, easily arousable on precedex gtt, not following commands. Plan for SAT/SBT today. PRN analgesia for CPOT greater than 3. Fevers improved, cultures and procal pending. Continue current IV abx, ID also consulted. Remains on low dose pressors, titrate pressors for a MAP above 65. 04/05: Long discussion with family with use of translation phone with [facility] regarding goals of care. Family to have meeting amongst themselves and informed care team of decisions. Fentanyl drip added for respiratory distress. Remains on Precedex drip. Antibiotics per ID. Given 2L NS bolus with levophed gtt 04/06: Family discussion with Dr. Grayson for goals of care. CXR shows possible mucus plug, continue CPT as FiO2 is being able to be weaned. Potassium repleted. Weaning fentnyl gtt. 04/07: Ultrasound guided thoracentesis today scheduled, inadequate amount of pleural effusion on so not completed. Patient was started on Levophed overnight which was weaned off this morning however had to be started twice a day. Remains on fentanyl and Precedex. Cardiology discontinued BB and ACEi in setting of hypotension. 04/08: COVID-19 PCR negative. Routine EEG ordered by cardiology which showed ST changes, cardiology aware. They will continue conservative treatment. Repeat troponins 0.030 which are less than admit of 0.048. Dr. Grayson had a long discussion with with the use of interpreter and translator today at bedside and has not made a decision regarding goals of care. Possible consult to surgery for trach/PEG early next week. Continues to require Precedex and fentanyl drip for sedation. Carvedilol/lisinopril discontinued as patient is continuously on Levophed. 04/09: No acute events reported overnight, remains on fentanyl, Precedex and Levophed drips. Dr. Graysno and Dr. Pineda updated family at bedside extensively today. Consulted surgery for trach/PEG. COVID-19 PCR negative. 04/10: Patient noted to have desaturation episodes, FiO2 increased slightly to 35%. Will add Mucomyst. Remains on fentanyl and Precedex. Off of Levophed. Surgery consulted for trach/PEG. 04/11: FiO2 increased over night likely related to hypoxia, continues on fent gtt, weaning precedex gtt as he is also on Seroquel. Will d/w CCM re scheduled or prn oxycodone 04/12: Periods of hypoxia and tachycardia this am. Symptoms improved post deep suction and tracheal lavage, Repeat CXR noted with no significant change. Continue CPT and mucomyst. Plan for possible trach/PEG tomorrow by general jessica fan. 04/13: Remains stable on the vent. Patient is wake and tracking but does not follow simple commands. No report of hypoxia from overnight, continue CPT and mucomyst. Plan for track and PEG today by General Surgery. Plan for LTAC placement post procedure, case management to arrange. 04/14: VIRGILIO overnight, Trach and PEG postponed for today by general surgery. Plan for LTAC placement post procedure, case management to arrange. 04/15: S/p Trach and PEG. Up to 80% FiO2 this am, this am CXR noted suggesting possible mucus plug. D/W CCM plan for bronch today. Continue CPT and mucomyst. Plan of care thoroughly discussed with patient's and son (who translated for ) at the bedside. Per , field automobile adjuster had already discussed the risks and benefits of the procedure yesterday. She verbalized understanding and agreed with procedure and current care plan, consent signed. Okay to use PEG-tube for meds this am, resume TF once okay by general Surgery. Case management to arrange LTAC placement. 04/16: s/p Bronchocopy by CCM. FiO2 down to 60%, angela 10 this am. This am CXR with moderate improvement. Continue CPT and mucomyst, wean Fio2 as tolerated for SPO2 above 92%. Patient is tolerating TF, advance to goal as ordered. Possible LTAC placement, case management to arrange. 04/17: VIRGILIO overnight. remains stable on the vent, recent CXR and this am ABG noted. Continue CPT and mucomyst, wean Fio2 as tolerated. 04/18: Remains stable on the vent, Fio2 down to 55% and peep of 8 this am. Continue to wean as tolerated, CPT, and mucomyst. Dsiposition- LTAC placement, case management to arrange. 04/19: No acute events overnight. Continue current management. 04/20: No acute events overnight, continue current management 04/21: Patient had chest ultrasound which showed trace pleural effusions, chest x-ray improved after the addition of Mucomyst yesterday. FiO2 55-65%. No acute events overnight. more interactive today. 04/22: Seroquel changed to BID, FiO2 was increased to 60%. RT increased FIO2 to 100 d/t desaturation into the 80s but was able to wean down. CCM increased PEEP and decreased FiO2. 04/23: CCM increase PEEP, no acute events reported overnight. 04/24: Spoke to RT about decreasing FiO2 as tolerated. No acute events reported overnight. Continue supportive management. 04/25: Weaning as tolerated. no acute events overnight. RT to attempt CPAP again today 04/26: VIRGILIO overnight. Patient failed PSV trial again this morning. Continue supportive management and daily PST trial. 04/27: Patient failed PSV trial again this am due to episodes of apnea. Continue daily PSV trial as tolerated. Case management to arrange LTAC placement 04/28: Remains stable. Continue daily PSV trial as tolerated. Awaiting approval for LTAC 04/29: VIRGILIO overnight. Continue daily PSV trial. Awaiting approval for LTAC, case management to arrange. 04/30: Patient continue to fail PSV trial. Per case management patient was denied for LTAC, now possible SNF placement. Case managemen to arrange. Continue supportive measures and daily PSV trial as tolerated. 05/01: VIRGILIO overnight. Continue supportive measures and daily PSV trial as tolerated. Possible SNF placement. 05/02: Continue supportive measures and daily PSV trial as tolerated. Possible SNF placement, case management to arrange 05/03: no acute events overnight, CM arranging home vent setup. Family declined SNF. 05/04: RN/RT reports thin secretions, increase in FiO2 for decreased oxygen on ABG. No acute events overnight. 05/05: Family scheduled for teaching session today at 2pm. Increase in FiO2 overnight to 45%. Awaiting vent setup for home care for ventilation secondary to tracheostomy. 05/06: No acute events reported overnight, T-max 100.9. FiO2 45%. Awaiting discharge home with vent when teaching is completed 05/07: No acute events reported overnight, Awaiting discharge home with vent when teaching is completed 05/08: No acute events reported overnight, Awaiting discharge home with vent when teaching is completed 05/09: no acute events reported overnight. Ordered routine labs today. Family continuing with vent training. Anticipate discharge home this week possibly on Tuesday. 05/10: VIRGILIO overnight. Continue current supportive measures and family training at the bedside. Plan for discharge home tomorrow. 05/11: Discharge home today. evening or night nurse supervisor at 12pm 05/12: Discharge cancelled yesterday. Patient desated on home vent at max setting. Home vent is not sufficient to support patient's ventilation need. D/w CCM, Dr. Valdivia, who recommend SNF placement at this time. Patient's family notified at the bedside. All questions and concerns were address at this time. Further discussion on alternative placement to be determine and discussed with patient's family and case management today. The respiratory therapist from [facility] is schedule to come at 1400 today for further assessment. 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; WOCN consult placed 05-18 ID and gen surg consult 05/19: s/p sacral wound debridement with Dr. Jerome with wound vac and mesh placement. Per Dr. Jerome patient will need to either stay in the hospital 1 week to be taken back to the OR for removal of mesh on wound or may be discharged but will have to visit the wound clinic in 2 weeks. We will alert case reviewer. No acute events overnight. 05/20: Remains with leukocytosis, wound VAC in place. Discharge requested to be postponed by surgery. Remains on meropenem and vancomycin. No acute events reported overnight. 05/21: IV abx deescalated by ID, no acute events overnight. Continue current management. Hospitalist Physical - Constitutional Vitals: Temp Pulse Resp BP Pulse Ox 98.3 F 127 H 18 111/62 96 05/21/22 12:00 05/21/22 12:00 05/21/22 12:00 05/21/22 12:00 05/21/22 12:00 General appearance: Present: no acute distress, cachectic, other (trach/) - EENT Eyes: Present: PERRL, EOM intact ENT: dentition normal - Neck Neck: Present: normal ROM - Respiratory Respiratory effort: normal Respiratory: bilateral: diminished - Cardiovascular Rhythm: regular Heart Sounds: Present: S1 & S2. Absent: systolic murmur, diastolic murmur - Extremities Extremities: no ischemia, pulses intact, pulses symmetrical, No edema, normal temperature, normal color Peripheral Pulses: within normal limits - Abdominal General gastrointestinal: soft, non-tender, non-distended, normal bowel sounds - Integumentary Integumentary: Present: warm - Psychiatric Psychiatric: cooperative - Neurologic Neurologic: CNII-XII intact, focal deficits (does not move BLE at baseline) - Allied Health Allied health notes reviewed: nursing, RT, social work HEART Score - HEART Score Troponin: Troponin T 0.031 ng/mL (0.00-0.029) H 04/08/22 17:47 Results - Labs CBC & Chem 7: 05/20/22 04:40 05/20/22 04:40 Labs: Laboratory Last Values WBC 13.3 K/mm3 (4.5-11.0) H 05/20/22 04:40 RBC 2.57 M/mm3 (3.65-5.03) L 05/20/22 04:40 Hgb 7.1 gm/dl (11.8-15.2) L 05/20/22 04:40 Hct 22.2 % (35.5-45.6) L 05/20/22 04:40 MCV 86 fl (84-94) 05/20/22 04:40 MCH 28 pg (28-32) 05/20/22 04:40 MCHC 32 % (32-34) 05/20/22 04:40 RDW 16.3 % (13.2-15.2) H 05/20/22 04:40 Plt Count 303 K/mm3 (140-440) 05/20/22 04:40 Lymph % (Auto) 8.1 % (13.4-35.0) L 05/09/22 15:15 [place] % (Auto) 4.9 % (0.0-7.3) 05/09/22 15:15 Eos % (Auto) 0.6 % (0.0-4.3) 05/09/22 15:15 Baso % (Auto) 0.3 % (0.0-1.8) 05/09/22 15:15 Lymph # (Auto) 0.9 K/mm3 (1.2-5.4) L 05/09/22 15:15 [place] # (Auto) 0.5 K/mm3 (0.0-0.8) 05/09/22 15:15 Eos # (Auto) 0.1 K/mm3 (0.0-0.4) 05/09/22 15:15 Baso # (Auto) 0.0 K/mm3 (0.0-0.1) 05/09/22 15:15 Add Manual Diff Complete 05/17/22 03:41 Total Counted 100 05/17/22 03:41 Seg Neutrophils % Supervisor Roving 05/17/22 03:41 Seg Neuts % (Manual) 96.0 % (40.0-70.0) H 05/17/22 03:41 Band Neutrophils % 0 % 05/17/22 03:41 Lymphocytes % (Manual) 1.0 % (13.4-35.0) L 05/17/22 03:41 Reactive Lymphs % (Man) 0 % 05/17/22 03:41 Monocytes % (Manual) 3.0 % (0.0-7.3) 05/17/22 03:41 Eosinophils % (Manual) 0 % (0.0-4.3) 05/17/22 03:41 Basophils % (Manual) 0 % (0.0-1.8) 05/17/22 03:41 Metamyelocytes % 0 % 05/17/22 03:41 Myelocytes % 0 % 05/17/22 03:41 Promyelocytes % 0 % 05/17/22 03:41 Blast Cells % 0 % 05/17/22 03:41 Nucleated RBC % Not Reportable 05/17/22 03:41 Seg Neutrophils # 9.2 K/mm3 (1.8-7.7) H 05/09/22 15:15 Seg Neutrophils # Man 15.6 K/mm3 (1.8-7.7) H 05/17/22 03:41 Band Neutrophils # 0.0 K/mm3 05/17/22 03:41 Lymphocytes # (Manual) 0.2 K/mm3 (1.2-5.4) L 05/17/22 03:41 Abs React Lymphs (Man) 0.0 K/mm3 05/17/22 03:41 Monocytes # (Manual) 0.5 K/mm3 (0.0-0.8) 05/17/22 03:41 Eosinophils # (Manual) 0.0 K/mm3 (0.0-0.4) 05/17/22 03:41 Basophils # (Manual) 0.0 K/mm3 (0.0-0.1) 05/17/22 03:41 Metamyelocytes # 0.0 K/mm3 05/17/22 03:41 Myelocytes # 0.0 K/mm3 05/17/22 03:41 Promyelocytes # 0.0 K/mm3 05/17/22 03:41 Blast Cells # 0.0 K/mm3 05/17/22 03:41 WBC Morphology Not Reportable 05/17/22 03:41 Hypersegmented Neuts Not Reportable 05/17/22 03:41 Hyposegmented Neuts Not Reportable 05/17/22 03:41 Hypogranular Neuts Not Reportable 05/17/22 03:41 Smudge Cells Not Reportable 05/17/22 03:41 Toxic Granulation Not Reportable 05/17/22 03:41 Toxic Vacuolation Not Reportable 05/17/22 03:41 Dohle Bodies Not Reportable 05/17/22 03:41 Pelger-Huet Anomaly Not Reportable 05/17/22 03:41 Terry Rods Not Reportable 05/17/22 03:41 Platelet Estimate Consistent w auto 05/17/22 03:41 Clumped Platelets Not Reportable 05/17/22 03:41 Plt Clumps, EDTA Not Reportable 05/17/22 03:41 Large Platelets Not Reportable 05/17/22 03:41 Giant Platelets Not Reportable 05/17/22 03:41 Platelet Satelliting Not Reportable 05/17/22 03:41 Plt Morphology Comment Not Reportable 05/17/22 03:41 RBC Morphology Not Reportable 05/17/22 03:41 Dimorphic RBCs Not Reportable 05/17/22 03:41 Polychromasia Not Reportable 05/17/22 03:41 Hypochromasia Not Reportable 05/17/22 03:41 Poikilocytosis Not Reportable 05/17/22 03:41 Anisocytosis 1+ 05/17/22 03:41 Microcytosis Not Reportable 05/17/22 03:41 Macrocytosis Not Reportable 05/17/22 03:41 Spherocytes Not Reportable 05/17/22 03:41 Pappenheimer Bodies Not Reportable 05/17/22 03:41 Sickle Cells Not Reportable 05/17/22 03:41 Target Cells Not Reportable 05/17/22 03:41 Tear Drop Cells Not Reportable 05/17/22 03:41 Ovalocytes Not Reportable 05/17/22 03:41 Helmet Cells Not Reportable 05/17/22 03:41 [place] Bodies Not Reportable 05/17/22 03:41 [place] Rings Not Reportable 05/17/22 03:41 [place] Cells Not Reportable 05/17/22 03:41 Bite Cells Not Reportable 05/17/22 03:41 Crenated Cell Not Reportable 05/17/22 03:41 Elliptocytes Not Reportable 05/17/22 03:41 Acanthocytes (Spur) Not Reportable 05/17/22 03:41 Rouleaux Not Reportable 05/17/22 03:41 Hemoglobin C Crystals Not Reportable 05/17/22 03:41 Schistocytes Not Reportable 05/17/22 03:41 Malaria parasites Not Reportable 05/17/22 03:41 [place] Bodies Not Reportable 05/17/22 03:41 Hem Pathologist Commnt No 05/17/22 03:41 PT 13.6 Sec. (12.2-14.9) 04/13/22 04:30 INR 0.94 (0.87-1.13) 04/13/22 04:30 APTT 35.7 Sec. (24.2-36.6) 04/07/22 03:51 ABG pH 7.385 pH Units (7.350-7.450) 05/19/22 06:10 ABG pCO2 51.9 mm Hg 05/19/22 06:10 ABG pO2 70.5 mm Hg (80.0-90.0) L 05/19/22 06:10 ABG HCO3 30.3 mmol/L (20.0-26.0) H 05/19/22 06:10 ABG O2 Saturation 97.6 % (95.0-99.0) 05/19/22 06:10 ABG O2 Content 8.1 (0.0-44) 05/19/22 06:10 ABG Base Excess 4.9 mmol/L (-2.0-3.0) H 05/19/22 06:10 ABG Hemoglobin 5.9 gm/dl (14.0-18.0) L 05/19/22 06:10 ABG Carboxyhemoglobin 1.5 % (0.0-5.0) 05/19/22 06:10 ABG Methemoglobin 0.4 % (0.0-1.5) 05/19/22 06:10 Oxyhemoglobin 95.8 % (95.0-99.0) 05/19/22 06:10 FiO2 55 % 05/19/22 06:10 Sodium 134 mmol/L (137-145) L 05/20/22 04:40 Potassium 4.3 mmol/L (3.6-5.0) 05/20/22 04:40 Chloride 98.8 mmol/L (98-107) 05/20/22 04:40 Carbon Dioxide 30 mmol/L (22-30) 05/20/22 04:40 Anion Gap 10 mmol/L 05/20/22 04:40 BUN 18 mg/dL (9-20) 05/20/22 04:40 Creatinine < 0.2 mg/dL (0.8-1.3) L 05/20/22 04:40 Estimated GFR > 60 ml/min 05/20/22 04:40 BUN/Creatinine Ratio 90 % 05/20/22 04:40 Glucose 170 mg/dL (75-100) H 05/20/22 04:40 POC Glucose 149 mg/dL (70-105) H 05/21/22 05:13 Lactic Acid 1.90 mmol/L (0.7-2.0) 04/02/22 19:39 Calcium 8.1 mg/dL (8.4-10.2) L 05/20/22 04:40 Phosphorus 3.00 mg/dL (2.5-4.5) 05/20/22 04:40 Magnesium 1.80 mg/dL (1.7-2.3) 05/20/22 04:40 Total Bilirubin 0.80 mg/dL (0.1-1.2) 04/02/22 19:39 AST 15 units/L (5-40) 04/02/22 19:39 ALT 9 units/L (7-56) 04/02/22 19:39 Alkaline Phosphatase 43 units/L (35-129) 04/02/22 19:39 Total Creatine Kinase 46 units/L (55-170) L 04/08/22 17:47 CK-MB (CK-2) 2.6 ng/mL (0.0-4.0) 04/08/22 17:47 CK-MB (CK-2) Rel Index 5.6 (0-4) H 04/08/22 17:47 Troponin T 0.031 ng/mL (0.00-0.029) H 04/08/22 17:47 C-Reactive Protein 31.20 mg/dL (0.00-1.30) H 05/17/22 03:41 Total Protein 4.6 g/dL (6.3-8.2) L 04/02/22 19:39 Albumin 2.7 g/dL (3.9-5) L 04/02/22 19:39 Albumin/Globulin Ratio 1.4 % 04/02/22 19:39 Triglycerides 80 mg/dL (2-149) 04/02/22 19:39 Cholesterol 94 mg/dL (50-199) 04/02/22 19:39 LDL Cholesterol Direct 27 mg/dL (50-130) L 04/02/22 19:39 HDL Cholesterol 47 mg/dL (40-59) 04/02/22 19:39 Cholesterol/HDL Ratio 2.00 % 04/02/22 19:39 Procalcitonin 1.30 ng/mL (<0.15) 05/17/22 03:41 Urine Color [place] (Yellow) 05/18/22 03:50 Urine Turbidity Clear (Clear) 05/18/22 03:50 Urine pH 5.0 (5.0-7.0) 05/18/22 03:50 Ur Specific [place] 1.030 (1.003-1.030) 05/18/22 03:50 Urine Protein 30 mg/dl mg/dL (Negative) 05/18/22 03:50 Urine Glucose (UA) Neg mg/dL (Negative) 05/18/22 03:50 Urine Ketones Tr mg/dL (Negative) 05/18/22 03:50 Urine Blood Neg (Negative) 05/18/22 03:50 Urine Nitrite Neg (Negative) 05/18/22 03:50 Urine Bilirubin Neg (Negative) 05/18/22 03:50 Urine Urobilinogen < 2.0 mg/dL (<2.0) 05/18/22 03:50 Ur Leukocyte Esterase Neg (Negative) 05/18/22 03:50 Urine WBC (Auto) 1.0 /HPF (0.0-6.0) 05/18/22 03:50 Urine RBC (Auto) 1.0 /HPF (0.0-6.0) 05/18/22 03:50 U Epithel Cells (Auto) 2.0 /HPF (0-13.0) 05/18/22 03:50 Urine Bacteria (Auto) 1+ /HPF (Negative) 05/18/22 03:50 Hyaline Casts 1 /LPF 04/05/22 17:45 Urine Mucus Few /HPF 05/18/22 03:50 Nasal Screen MRSA (PCR) Negative (Negative) 04/05/22 12:37 Vancomycin Trough 16.2 ug/mL (5.0-20.0) 05/20/22 20:41 Coronavirus (PCR) Negative (Negative) 04/07/22 14:52 Blood Type O POSITIVE 05/18/22 13:56 Antibody Screen Negative 05/18/22 13:56 Crossmatch See Detail 05/18/22 13:56 Microbiology: Microbiology 05/19/22 Unknown Buttock Surgical Culture - Preliminary Gram Negative Deejay 05/17/22 17:04 Peripheral/Venous Blood Culture - Preliminary NO GROWTH AFTER 72 HOURS 05/17/22 17:04 Peripheral/Venous Blood Culture - Preliminary NO GROWTH AFTER 72 HOURS 05/17/22 15:10 Sputum - Endotracheal Wash Sputum Culture - Final Pseudomonas Aeruginosa Pseudomonas Aeruginosa#2 05/15/22 03:45 Tracheal Aspirate Sputum Culture - Final Pseudomonas Aeruginosa 05/15/22 04:52 Peripheral/Venous Blood Culture - Final NO GROWTH AFTER 5 DAYS 05/15/22 04:24 Peripheral/Venous Blood Culture - Final NO GROWTH AFTER 5 DAYS Perez/IV: Voiding Method Condom Catheter Active Medications - Current Medications Current Medications: Generic Name Dose Route Start Last Admin Trade Name Freq PRN Reason Stop Dose Admin Acetaminophen 650 mg 04/02/22 23:53 05/18/22 09:01 Acetaminophen 325 Mg Tab PO 650 mg Q6H PRN Administration Pain MILD(1-3)/Fever >100.5/FAITH Acetylcysteine 200 mg 05/04/22 20:00 05/21/22 08:31 Acetylcysteine 20% 200 Mg/1 Ml *For Inhalation Use* INHALATION 200 mg Q12HRT [id number] Administration Albuterol 2.5 mg 05/05/22 20:00 05/21/22 08:31 Albuterol 2.5 Mg/3 Ml Nebu IH 2.5 mg Q12HRT SEGUNDO Administration Lipase/Protease/Amylase 1 each 05/20/22 15:35 Lipase 10,500/Protease 25,000/Amylase 43,750 (Units) Dr Patterson FEEDTUBE PRN PRN For Clogged Feeding Tube Baclofen 10 mg 05/19/22 20:00 05/21/22 09:07 Baclofen 10 Mg Tab PO 10 mg TID SEGUNDO Administration Bisacodyl 10 mg 04/07/22 09:44 04/12/22 10:06 Bisacodyl 10 Mg Rect Supp RI 10 mg QDAY PRN Administration Constipation Docusate Sodium 100 mg 05/18/22 22:00 05/21/22 09:06 Docusate Sodium 100 Mg/10 Ml Oral Liqd FEEDTUBE 100 mg BID SEGUNDO Administration Famotidine 20 mg 04/06/22 10:00 05/21/22 09:07 Famotidine 20 Mg Tab FEEDTUBE 20 mg BID SEGUNDO Administration Fentanyl 50 mcg 04/04/22 15:56 05/19/22 21:24 Fentanyl 100 Mcg/2 Ml Inj IV 50 mcg Q2HR PRN Administration For CPOT of greater than 3 Heparin Sodium (Porcine) 5,000 unit 04/03/22 06:00 05/21/22 05:30 Heparin 5,000 Unit/1 Ml Vial SUB-Q 5,000 unit Q8HR SEGUNDO Administration Vancomycin HCl 1 gm in 250 mls @ 167.007 mls/hr 05/17/22 22:00 05/21/22 09:31 Vancomycin/Ns 1 Gm/250 Ml IV 167 mls/hr Q12H SEGUNDO Administration Levofloxacin/Dextrose 500 mg in 100 mls @ 100 mls/hr 05/21/22 12:00 05/21/22 12:19 Levaquin 500mg/100ml IV 05/23/22 12:59 100 mls/hr Q24H SEGUNDO Administration Protocol Insulin Human Lispro 0 unit 05/05/22 06:00 05/21/22 05:29 Insulin Lispro 100 Unit/Ml SUB-Q Not Given Q8HR [facility] Protocol Magnesium Hydroxide 30 ml 04/02/22 23:53 Magnesium Hydroxide (Mom) Oral Liqd Udc PO Q4H PRN Constipation Metoprolol Tartrate 12.5 mg 05/03/22 13:00 05/21/22 05:30 Metoprolol Tartrate 25 Mg Tab FEEDTUBE Not Given Q6HR [facility] Ondansetron HCl 4 mg 04/02/22 23:53 Ondansetron 4 Mg/2 Ml Inj IV Q8H PRN Nausea And Vomiting Polyethylene Glycol 17 gm 05/18/22 15:00 05/21/22 09:06 Polyethylene Glycol 3350 17 Gm Powder FEEDTUBE 17 gm QDAY SEGUNDO Administration Quetiapine Fumarate 50 mg 05/13/22 11:00 05/21/22 09:07 Quetiapine 100 Mg Tab FEEDTUBE 50 mg BID SEGUNDO Administration Scopolamine 1 each 05/12/22 09:00 05/21/22 09:06 Scopolamine Transdermal Patch 72 Hr TD 1 each Q3D SEGUNDO Administration Senna 8.8 mg 05/18/22 22:00 05/20/22 21:16 Sennosides Oral Liqd 8.8 Mg/5 Ml Oral Liqd FEEDTUBE Not Given QHS SEGUNDO Simple Syrup 15 ml 05/20/22 15:35 Simple Syrup 15 Ml FEEDTUBE PRN PRN Hypoglycemia Simple Syrup 30 ml 05/20/22 15:35 Simple Syrup 15 Ml FEEDTUBE PRN PRN Hypoglycemia Sodium Bicarbonate 325 mg 05/20/22 15:35 Sodium Bicarbonate 325 Mg Tab FEEDTUBE PRN PRN For Clogged Feeding Tube Sodium Chloride 10 ml 04/03/22 10:00 05/21/22 09:06 Sodium Chloride 0.9% 10 Ml Flush Syringe IV 10 ml BID SEGUNDO Administration Sodium Chloride 10 ml 04/02/22 23:53 05/16/22 05:10 Sodium Chloride 0.9% 10 Ml Flush Syringe IV 10 ml PRN PRN Administration LINE FLUSH Nutrition/Malnutrition Assess - Dietary Evaluation Nutrition/Malnutrition Findings: Nutrition Notes Start: 04/04/22 13:13 Freq: Status: Active Protocol: Document 05/20/22 15:20 COLLEEN (Rec: 05/20/22 15:36 COLLEEN [id number]) Nutrition Notes Initial or Follow up Brief Note Current Diagnosis Coronary Artery Disease, Decubitus(Pressure Ulcer), Sepsis,Respiratory Failure, Malnutrition Other Pertinent Diagnosis HCAP, ALS, Broncopneumonia, NSTEMI, Cardiomyopathy, ... Current Diet TF-Osmolite 1.5 Inderjit @ 55 ml/hr (since D 05/19). Height 5 ft 4.8 in Weight 48.6 kg [place] Body Weight (kg) 61.27 BMI 17.9 Weight change and time frame No body weight change reported in 3 days. Weight Status Underweight Subjective/Other Information RD consult for routine F/U on TF tolerance/continuation. Pt resumed Osmolite yesterday, but order was not place in Chart, I will procede to place the order. Percent of energy/protein needs met: Prescribed TF-Osmolite 1.5 Inderjit @ 55 ml/hr provides for energy/protein needs (1,980 Kcal/83 g) during LOS, 102% Kcal; 100% AA. #1 Nutrition Diagnosis Inadequate oral intake Diagnosis Progress(for reassessment Continues documentation) Is patient on ventilator? Yes Is Patient Ambulatory and/or Out of Bed No REE-([facility]-confined to bed) 1498.320 Kcal/Kg value to use for calculation 40 Approximate Energy Requirements Using 1944 kcal/Kg Calculation Used for Recommendations Kcal/kg Additional Notes Protein: 1.5-2 g/Kg ABW; 73-98 g/day. Fluids: 1 ml/Kcal, or as per MD. Nutrition Intervention Nutrition Support: Continue TF-Osmolite 1.5 Inderjit @ 55 ml/hr. Flush: 150 ml water Q 4 hr, or as per MD. Kcal 1,980 Protein (gm) 83 Carbohydrates (gm) 269 Fat (gm) 65 Fluid (mL) 1,006 Fiber (gm) 0 % RDI: 102% Kcal; 100% AA. Goal #1 Provide at least 75% of energy /protein needs through Enteral Feeding during LOS. Follow-Up By: 05/27/22 Additional Comments Continue monitoring TF tolerance and BM.
--- NOTE | 2022-05-21 13:56 | Progress Note ---
Assessment and Plan - Patient Problems (1) Respiratory failure Current Visit: Yes Status: Acute Plan to address problem: Patient presented with acute respiratory failure, with chest x-ray showing total whiteout of the right lung, due to acute pneumonia, large right pleural effusion and collapse of the right lung. Continue supportive management, antibiotics. (2) Acute coronary syndrome Current Visit: Yes Status: Acute Plan to address problem: The patient's interval ECGs while in the ICU showed dynamic changes of anterior wall ischemia or infarction. Patient has severe comorbidities including progressive total paralysis of ALS, and intercurrent respiratory failure with large right pleural effusion and total collapse of the right lung. Currently assessed as a poor candidate for aggressive cardiac management due to the multiple severe acute and chronic comorbidities. He has been placed on conservative, empiric coronary artery disease medical therapy. Discharge planning in progress. We will follow intermittently. Subjective Date of service: 05/21/22 Principal diagnosis: Ac and ch hypercapnic and hypoxemic Resp Failure; ALS; HCAP; Sepsis; NSTEMI Interval history: Patient is on the vent via trach, no new cardiac events reported. Discharge planning in progress. Objective Vital Signs Temp Pulse Pulse Pulse Resp Resp BP 05/21/22 12:00 98.3 F 131 H 127 H 22 111/62 05/21/22 11:59 131 H 111/62 05/21/22 11:00 131 H 19 114/67 05/21/22 10:00 127 H 23 116/68 05/21/22 09:00 114 H 21 94/67 05/21/22 08:40 05/21/22 08:32 113 H 14 05/21/22 08:30 111 H 94/67 05/21/22 08:00 98.2 F 119 H 20 94/67 05/21/22 07:48 120 H 18 05/21/22 07:00 112 H 11 L 98/63 05/21/22 06:00 105 H 13 101/72 05/21/22 05:30 102 H 104/65 05/21/22 05:08 05/21/22 05:00 116 H 15 104/65 05/21/22 04:51 116 H 109/70 05/21/22 04:00 99.4 F 118 H 15 109/70 05/21/22 03:00 90 11 L 98/61 05/21/22 02:00 91 H 14 96/61 05/21/22 01:00 101 H 14 89/59 05/21/22 00:39 111 H 86/56 05/21/22 00:28 112 H 86/56 05/21/22 00:00 98.5 F 100 H 14 86/56 05/20/22 23:24 106 H 14 94/63 05/20/22 23:00 113 H 21 94/63 05/20/22 22:00 116 H 12 109/73 05/20/22 21:00 108 H 14 101/68 05/20/22 20:56 106 H 16 05/20/22 20:00 98.7 F 106 H 16 94/61 05/20/22 19:56 05/20/22 19:49 109 H 100/55 05/20/22 19:00 104 H 28 H 100/55 05/20/22 18:12 130 H 112/68 05/20/22 18:00 128 H 18 112/68 05/20/22 17:20 05/20/22 17:00 119 H 16 104/70 05/20/22 16:50 117 H 104/70 05/20/22 16:00 98.4 F 114 H 115 H 26 H 101/70 05/20/22 15:00 112 H 15 101/69 05/20/22 14:00 109 H 24 106/71 Pulse Ox Pulse Ox 05/21/22 12:00 94 05/21/22 11:59 95 05/21/22 11:00 93 05/21/22 10:00 92 05/21/22 09:00 93 05/21/22 08:40 93 05/21/22 08:32 05/21/22 08:30 93 05/21/22 08:00 93 05/21/22 07:48 96 05/21/22 07:00 94 05/21/22 06:00 97 05/21/22 05:30 05/21/22 05:08 96 05/21/22 05:00 94 05/21/22 04:51 95 05/21/22 04:00 96 05/21/22 03:00 97 05/21/22 02:00 100 05/21/22 01:00 98 05/21/22 00:39 97 05/21/22 00:28 05/21/22 00:00 96 05/20/22 23:24 96 05/20/22 23:00 96 05/20/22 22:00 93 05/20/22 21:00 97 05/20/22 20:56 05/20/22 20:00 95 05/20/22 19:56 98 05/20/22 19:49 93 05/20/22 19:00 94 05/20/22 18:12 05/20/22 18:00 89 05/20/22 17:20 92 05/20/22 17:00 87 05/20/22 16:50 92 05/20/22 16:00 88 05/20/22 15:00 92 05/20/22 14:00 99 - Physical Examination General: Other (On the vent via tracheostomy) HEENT: Positive: PERRL, Other (ET-tube in place) Neck: Positive: neck supple Cardiac: Positive: Reg Rate and Rhythm Lungs: Positive: Decreased Breath Sounds Neuro: Positive: Weakness (Generalized myopathy, patient with ALS), Other (On the vent via tracheostomy) Abdomen: Positive: Soft Skin: Positive: Clear Extremities: Present: Other (TR.EDEMA). Absent: edema (NO) - Allied health notes Allied health notes reviewed: RT
[2022-05-21] MEDS: SENNOSIDES ORAL LIQD 8.8 MG/5 ML ORAL LIQD FEEDTUBE SCH (22:56)
[2022-05-22] MEDS: METOPROLOL TARTRATE 25 MG TAB FEEDTUBE SCH ×4 (00:51→18:06)
[2022-05-22 06:42] LABS: Hematocrit 26.2 % (35.5-45.6); Hemoglobin 8.6 gm/dl (11.8-15.2); Mean Corpuscular HGB Conc 33 % (32-34); Mean Corpuscular Volume 86 fl (84-94); Platelet Count 164 K/mm3 (140-440); Red Blood Count 3.05 M/mm3 (3.65-5.03); Red Cell Distribution Width 16.8 % (13.2-15.2)
[2022-05-22 07:04] LABS: Blood Urea Nitrogen 13 mg/dL (9-20); Calcium 8.2 mg/dL (8.4-10.2); Hemolysis Index 43
[2022-05-22 07:45] LABS: BUN/Creatinine Ratio 65
[2022-05-22] MEDS: INSULIN LISPRO 100 UNIT/ML SUB-Q SCH ×2 (07:45→14:12)
--- NOTE | 2022-05-22 08:41 | Progress Note ---
Assessment and Plan Patient status post debridement and placement of skin substitute with silicone backing on 05/19/2022. Wound VAC was placed at that time. He has been stable. The wound VAC is intact. He has had several liquid stools. Despite this and th e closeness of these wound VAC dressing to the anus the wound VAC is intact. Continue supportive measures plan changing wound VAC on Tuesday. The silicone backing will need to be removed next week 05/26/2022. Subjective Date of service: 05/22/22 Patient Reports: Positive: no new complaints Narrative: Patient status post debridement and placement of skin substitute with silicone backing on 05/19/2022. Wound VAC was placed at that time. He has been stable. The wound VAC is intact. He has had several liquid stools. Despite this and the closeness of these wound VAC dressing to the anus the wound VAC is intact. Continue supportive measures plan changing wound VAC on Tuesday. The silicone backing will need to be removed next week 05/26/2022. Objective Vital Signs - 12hr 05/21/22 05/21/22 05/21/22 21:00 21:52 22:00 Temperature Pulse Rate 110 H 107 H Pulse Rate [ From Monitor] Respiratory 15 17 Rate Blood Pressure 107/74 111/74 O2 Sat by Pulse 94 98 Oximetry O2 Sat by Pulse 99 Oximetry [ Assessment] 05/21/22 05/21/22 05/22/22 23:00 23:27 00:00 Temperature 98.2 F Pulse Rate 103 H 100 H 107 H Pulse Rate [ 111 H From Monitor] Respiratory 18 14 Rate Blood Pressure 103/71 103/71 112/73 O2 Sat by Pulse 98 100 98 Oximetry O2 Sat by Pulse Oximetry [ Assessment] 05/22/22 05/22/22 05/22/22 00:51 01:00 02:00 Temperature Pulse Rate 110 H 110 H 88 Pulse Rate [ From Monitor] Respiratory 14 14 Rate Blood Pressure 112/73 102/68 96/65 O2 Sat by Pulse 97 100 Oximetry O2 Sat by Pulse Oximetry [ Assessment] 05/22/22 05/22/22 05/22/22 03:00 04:00 04:15 Temperature 98.2 F Pulse Rate 101 H 107 H 95 H Pulse Rate [ 117 H From Monitor] Respiratory 27 H 14 Rate Blood Pressure 96/65 104/63 104/63 O2 Sat by Pulse 98 97 98 Oximetry O2 Sat by Pulse Oximetry [ Assessment] 05/22/22 05/22/22 05/22/22 05:00 06:00 07:00 Temperature Pulse Rate 98 H 101 H 109 H Pulse Rate [ From Monitor] Respiratory 14 14 14 Rate Blood Pressure 101/62 102/66 103/68 O2 Sat by Pulse 97 97 98 Oximetry O2 Sat by Pulse Oximetry [ Assessment] 05/22/22 05/22/22 07:38 08:00 Temperature 98.3 F Pulse Rate 115 H 116 H Pulse Rate [ 119 H From Monitor] Respiratory 18 Rate Blood Pressure 103/68 106/62 O2 Sat by Pulse 97 94 Oximetry O2 Sat by Pulse Oximetry [ Assessment] - Labs 05/22/22 05:49 05/22/22 05:49 Diabetes panel 05/22/22 Range/Units 05:49 Sodium 131 L (137-145) mmol/L Potassium 4.7 (3.6-5.0) mmol/L Chloride 93.3 L (98-107) mmol/L Carbon Dioxide 32 H (22-30) mmol/L BUN 13 (9-20) mg/dL Creatinine < 0.2 L (0.8-1.3) mg/dL Glucose 148 H (75-100) mg/dL Calcium 8.2 L (8.4-10.2) mg/dL Calcium panel 05/22/22 Range/Units 05:49 Calcium 8.2 L (8.4-10.2) mg/dL Phosphorus 2.70 (2.5-4.5) mg/dL Pituitary panel 05/22/22 Range/Units 05:49 Sodium 131 L (137-145) mmol/L Potassium 4.7 (3.6-5.0) mmol/L Chloride 93.3 L (98-107) mmol/L Carbon Dioxide 32 H (22-30) mmol/L BUN 13 (9-20) mg/dL Creatinine < 0.2 L (0.8-1.3) mg/dL Glucose 148 H (75-100) mg/dL Calcium 8.2 L (8.4-10.2) mg/dL Adrenal panel 05/22/22 Range/Units 05:49 Sodium 131 L (137-145) mmol/L Potassium 4.7 (3.6-5.0) mmol/L Chloride 93.3 L (98-107) mmol/L Carbon Dioxide 32 H (22-30) mmol/L BUN 13 (9-20) mg/dL Creatinine < 0.2 L (0.8-1.3) mg/dL Glucose 148 H (75-100) mg/dL Calcium 8.2 L (8.4-10.2) mg/dL
[2022-05-22] MEDS ORDERED: EPINEPHrine RACEMIC 2.25% 0.5ML NEBU IH ONE (08:46)
[2022-05-22] MEDS: VANCOMYCIN/NS 1 GM/250 ML 1 GM/250 ML BAG IV SCH (09:32)
[2022-05-22] MEDS: HEPARIN 5,000 UNIT/1 ML VIAL SUB-Q SCH ×3 (09:33→21:55)
[2022-05-22] MEDS: FAMOTIDINE 20 MG TAB FEEDTUBE SCH ×2 (09:33→21:58)
[2022-05-22] MEDS: QUEtiapine 100 MG TAB FEEDTUBE SCH ×2 (09:34→21:58)
[2022-05-22] MEDS: BACLOFEN 10 MG TAB PO SCH ×3 (09:34→21:58)
--- NOTE | 2022-05-22 10:45 | Progress Note ---
Assessment and Plan 57-year-old male with known history of ALS brought into the emergency room via EMS today for changes in mental status and respiratory distress. Most of the history was gotten from family namely and daughter who were by the bedside as patient is currently intubated. Patient was said to have been seen at [facility] few days ago where he was diagnosed with pneumonia and possible heart attack. Discharge paperwork from [facility] was reviewed by the bedside and patient was said to have been diagnosed with pneumonia and also elevated troponin. Elevated troponin was said to be possibly due to demand ischemia and patient did not undergo any further cardiac work-up. Patient was subsequently discharged home. Patient was said to have suddenly had a change in mental status today and was not quite responsive. There has been no fever or chills. No complaint of chest pain, no nausea or vomiting and no abdominal pain. Work-up in the emergency room lab reveals leukocytosis of 14.3, troponin 0.048, sodium of 151. Urinalysis essentially within normal limits. Chest x-ray reveals moderate to large effusion on the right. Patient was said to be having Agonal breathing and was subsequently intubated in the emergency room. Patient placed on mechanical ventilation. Unable to wean from the ventilator. Arranged home ventilator. However patient desaturating on high home ventilator settings. Recommend intermediate home placement with Mechanical ventilation. Also founf stage 1V sacral wound. Wound care nurse and general surgery consulted. Oatient undergone sacral wound debridement with Dr. Jerome with wound vac and mesh placement Patient sleeping at this time. Patient is on assist control mechanical ventilation, rate 14, tidal volume 500, PEEP 12, FIO2 50%. and O2 saturation running 96%. Patient afebrile. No leukocytosis. Blood pressure 104/71 , pulse 101 , respirations 18 Chest xray done 05/18/22 reported Patchy infiltrates remain at the lung bases. Mild improving basilar aeration. No pneumothorax. Patient is on Levaquin, Vancomycin, Mucomyst, Pepcid, S/C Heparin, Albuterol inhaler. Patients daughters at bed side. Explained to them, patients respiratory status. I spent critical care time of 45 minutes, reviewing the chart, examine the patient, review labs and chest xray results, talking to the respiratory therapy and nursing staff and work out plan of treatment in this critically ill patient. - Patient Problems (1) Respiratory failure Current Visit: Yes Status: Acute Plan to address problem: Mechanical ventilation, Assist control, rate 14, Tidal volume 500, PEEP 12, FIO2 50% Recommend albuterol aerosol treatments q 6 hours. Continue S/C Heparin. Continue Famotidine (2) Acute coronary syndrome Current Visit: Yes Status: Acute Plan to address problem: Management as per cardiology. (3) Elevated troponin Current Visit: Yes Status: Acute Plan to address problem: Management as per cardiology. (4) History of amyotrophic lateral sclerosis Current Visit: No Status: Acute Plan to address problem: Continue Mechanical ventilation. Rest of the management with primary care and neurology (5) Sacral wound Current Visit: Yes Status: Acute Plan to address problem: Wound care nurse and General surgery consulted. Patient undergone debridement of the wound. Patient is on antibiotics Levaquin and vancomycin. Subjective Date of service: 05/22/22 Principal diagnosis: Ac and ch hypercapnic and hypoxemic Resp Failure; ALS; HCAP; Sepsis; NSTEMI Interval history: 57-year-old male with known history of ALS brought into the emergency room via EMS today for changes in mental status and respiratory distress. Most of the history was gotten from family namely and daughter who were by the bedside as patient is currently intubated. Patient was said to have been seen at [facility] few days ago where he was diagnosed with pneumonia and possible heart attack. Discharge paperwork from [facility] was reviewed by the bedside and patient was said to have been diagnosed with pneumonia and also elevated troponin. Elevated troponin was said to be possibly due to demand ischemia and patient did not undergo any further cardiac work-up. Patient was subsequently discharged home. Patient was said to have suddenly had a change in mental status today and was not quite responsive. There has been no fever or chills. No complaint of chest pain, no nausea or vomiting and no abdominal pain. Work-up in the emergency room lab reveals leukocytosis of 14.3, troponin 0.048, sodium of 151. Urinalysis essentially within normal limits. Chest x-ray reveals moderate to large effusion on the right. Patient was said to be having Agonal breathing and was subsequently intubated in the emergency room. Patient placed on mechanical ventilation. Unable to wean from the ventilator. Arranged home ventilator. However patient desaturating on high home ventilator settings. Recommend intermediate home placement with Mechanical ventilation. Also founf stage 1V sacral wound. Wound care nurse and general surgery consulted. Oatient undergone sacral wound debridement with Dr. Jerome with wound vac and mesh placement Patient sleeping at this time. Patient is on assist control mechanical ventilation, rate 14, tidal volume 500, PEEP 12, FIO2 50%. and O2 saturation ru nning 96%. Patient afebrile. No leukocytosis. Blood pressure 104/71 , pulse 101 , respirations 18 Chest xray done 05/18/22 reported Patchy infiltrates remain at the lung bases. Mild improving basilar aeration. No pneumothorax. Patient is on Levaquin, Vancomycin, Mucomyst, Pepcid, S/C Heparin, Albuterol inhaler. Objective Vital Signs - 12hr 05/21/22 05/21/22 05/22/22 23:00 23:27 00:00 Temperature 98.2 F Pulse Rate 103 H 100 H 107 H Pulse Rate [ 111 H From Monitor] Respiratory 18 14 Rate Blood Pressure 103/71 103/71 112/73 O2 Sat by Pulse 98 100 98 Oximetry 05/22/22 05/22/22 05/22/22 00:51 01:00 02:00 Temperature Pulse Rate 110 H 110 H 88 Pulse Rate [ From Monitor] Respiratory 14 14 Rate Blood Pressure 112/73 102/68 96/65 O2 Sat by Pulse 97 100 Oximetry 05/22/22 05/22/22 05/22/22 03:00 04:00 04:15 Temperature 98.2 F Pulse Rate 101 H 107 H 95 H Pulse Rate [ 117 H From Monitor] Respiratory 27 H 14 Rate Blood Pressure 96/65 104/63 104/63 O2 Sat by Pulse 98 97 98 Oximetry 05/22/22 05/22/22 05/22/22 05:00 06:00 07:00 Temperature Pulse Rate 98 H 101 H 109 H Pulse Rate [ From Monitor] Respiratory 14 14 14 Rate Blood Pressure 101/62 102/66 103/68 O2 Sat by Pulse 97 97 98 Oximetry 05/22/22 05/22/22 05/22/22 07:38 08:00 09:00 Temperature 98.3 F Pulse Rate 115 H 116 H 117 H Pulse Rate [ 119 H From Monitor] Respiratory 18 14 Rate Blood Pressure 103/68 106/62 119/74 O2 Sat by Pulse 97 94 91 Oximetry 05/22/22 05/22/22 09:33 10:00 Temperature Pulse Rate 112 H 89 Pulse Rate [ From Monitor] Respiratory 17 Rate Blood Pressure 119/74 99/63 O2 Sat by Pulse 97 Oximetry Constitutional: no acute distress, asleep, other (resting in bed without increased respiratory effort on assist control Mechanical ventilation. Patient weak and contracted.) Eyes: non-icteric ENT: oropharynx moist, other (+ midline tracheostomy to home vent) Neck: supple, no lymphadenopathy, no JVD Effort: normal Ascultation: Bilateral: diminished breath sounds (bases), rhonchi Percussion: Bilateral: not dull Cardiovascular: regular rate and rhythm, other (S1,S2) Gastrointestinal: normoactive bowel sounds, soft, non-tender, non-distended Integumentary: normal, decubitus ulcer (see wound care pictures) Extremities: no cyanosis, no edema, pink and warm, pulses normal Neurologic: pupils equal and round, other (functional quadriplegia) Psychiatric: other (Patient sleeping at this time.) CBC and BMP: 05/22/22 05:49 05/22/22 05:49 ABG, PT/INR, D-dimer: ABG ABG pH 7.385 pH Units (7.350-7.450) 05/19/22 06:10 ABG pCO2 51.9 mm Hg 05/19/22 06:10 ABG pO2 70.5 mm Hg (80.0-90.0) L 05/19/22 06:10 ABG O2 Saturation 97.6 % (95.0-99.0) 05/19/22 06:10 PT/INR, D-dimer PT 13.6 Sec. (12.2-14.9) 04/13/22 04:30 INR 0.94 (0.87-1.13) 04/13/22 04:30 Abnormal lab findings: Abnormal Labs 04/02/22 04/02/22 04/02/22 19:39 19:39 19:39 WBC 14.3 H RBC Hgb Hct MCV 96 H MCHC RDW Plt Count 104 L Lymph % (Auto) [place] % (Auto) Lymph # (Auto) [place] # (Auto) Seg Neutrophils % Seg Neuts % (Manual) 94.0 H Lymphocytes % (Manual) 1.0 L Seg Neutrophils # Seg Neutrophils # Man 13.4 H Lymphocytes # (Manual) 0.1 L PT 15.9 H INR 1.14 H ABG pH ABG pO2 ABG HCO3 ABG O2 Saturation ABG Base Excess ABG Hemoglobin Oxyhemoglobin Sodium 151 H Potassium Chloride Carbon Dioxide BUN Creatinine 0.5 L Glucose POC Glucose Calcium 8.2 L Phosphorus Magnesium 1.60 L Total Creatine Kinase CK-MB (CK-2) Rel Index Troponin T 0.048 H C-Reactive Protein Total Protein 4.6 L Albumin 2.7 L LDL Cholesterol Direct 27 L Urine WBC (Auto) Crossmatch 04/02/22 04/03/22 04/03/22 19:42 05:14 06:30 WBC RBC Hgb Hct MCV MCHC RDW Plt Count Lymph % (Auto) [place] % (Auto) Lymph # (Auto) [place] # (Auto) Seg Neutrophils % Seg Neuts % (Manual) Lymphocytes % (Manual) Seg Neutrophils # Seg Neutrophils # Man Lymphocytes # (Manual) PT INR ABG pH 7.471 H 7.496 H ABG pO2 47.8 L 91.0 H ABG HCO3 30.6 H ABG O2 Saturation 94.4 L ABG Base Excess 6.2 H ABG Hemoglobin 11.0 L 12.8 L Oxyhemoglobin 93.1 L Sodium 149 H Potassium 3.4 L Chloride Carbon Dioxide BUN Creatinine 0.4 L Glucose POC Glucose Calcium Phosphorus Magnesium Total Creatine Kinase CK-MB (CK-2) Rel Index Troponin T C-Reactive Protein Total Protein Albumin LDL Cholesterol Direct Urine WBC (Auto) Crossmatch 04/04/22 04/04/22 04/04/22 04:18 04:18 05:50 WBC 11.8 H RBC Hgb Hct MCV MCHC RDW Plt Count 132 L Lymph % (Auto) [place] % (Auto) Lymph # (Auto) [place] # (Auto) Seg Neutrophils % Seg Neuts % (Manual) Lymphocytes % (Manual) Seg Neutrophils # Seg Neutrophils # Man Lymphocytes # (Manual) PT INR ABG pH 7.517 H ABG pO2 115.5 H ABG HCO3 29.9 H ABG O2 Saturation ABG Base Excess 6.7 H ABG Hemoglobin 12.3 L Oxyhemoglobin Sodium Potassium 3.5 L Chloride Carbon Dioxide 31 H BUN Creatinine 0.3 L Glucose 153 H POC Glucose Calcium Phosphorus 1.40 L Magnesium 1.50 L Total Creatine Kinase CK-MB (CK-2) Rel Index Troponin T C-Reactive Protein 31.60 H Total Protein Albumin LDL Cholesterol Direct Urine WBC (Auto) Crossmatch 04/05/22 04/05/22 04/05/22 02:50 05:25 11:28 WBC RBC Hgb Hct MCV MCHC RDW Plt Count Lymph % (Auto) [place] % (Auto) Lymph # (Auto) [place] # (Auto) Seg Neutrophils % Seg Neuts % (Manual) Lymphocytes % (Manual) Seg Neutrophils # Seg Neutrophils # Man Lymphocytes # (Manual) PT INR ABG pH 7.455 H ABG pO2 50.7 L ABG HCO3 30.5 H ABG O2 Saturation 89.4 L ABG Base Excess 5.9 H ABG Hemoglobin 11.8 L Oxyhemoglobin 88.2 L Sodium Potassium Chloride Carbon Dioxide 32 H BUN Creatinine 0.2 L Glucose 110 H POC Glucose 124 H Calcium 7.9 L Phosphorus Magnesium Total Creatine Kinase CK-MB (CK-2) Rel Index Troponin T C-Reactive Protein Total Protein Albumin LDL Cholesterol Direct Urine WBC (Auto) Crossmatch 04/05/22 04/05/22 04/06/22 17:45 Unknown 04:00 WBC RBC 3.55 L Hgb 11.1 L 11.5 L Hct 33.2 L 35.1 L MCV MCHC RDW Plt Count 113 L 114 L Lymph % (Auto) [place] % (Auto) Lymph # (Auto) [place] # (Auto) Seg Neutrophils % Seg Neuts % (Manual) Lymphocytes % (Manual) Seg Neutrophils # Seg Neutrophils # Man Lymphocytes # (Manual) PT INR ABG pH ABG pO2 ABG HCO3 ABG O2 Saturation ABG Base Excess ABG Hemoglobin Oxyhemoglobin Sodium Potassium Chloride Carbon Dioxide BUN Creatinine Glucose POC Glucose Calcium Phosphorus Magnesium Total Creatine Kinase CK-MB (CK-2) Rel Index Troponin T C-Reactive Protein Total Protein Albumin LDL Cholesterol Direct Urine WBC (Auto) 8.0 H Crossmatch 04/06/22 04/06/22 04/07/22 04:00 08:30 00:04 WBC RBC Hgb Hct MCV MCHC RDW Plt Count Lymph % (Auto) [place] % (Auto) Lymph # (Auto) [place] # (Auto) Seg Neutrophils % Seg Neuts % (Manual) Lymphocytes % (Manual) Seg Neutrophils # Seg Neutrophils # Man Lymphocytes # (Manual) PT INR ABG pH ABG pO2 60.8 L ABG HCO3 30.5 H ABG O2 Saturation 93.3 L ABG Base Excess 4.9 H ABG Hemoglobin 12.4 L Oxyhemoglobin 92.1 L Sodium Potassium 3.0 L Chloride Carbon Dioxide BUN Creatinine < 0.2 L Glucose 130 H POC Glucose 117 H Calcium 8.1 L Phosphorus Magnesium Total Creatine Kinase CK-MB (CK-2) Rel Index Troponin T C-Reactive Protein Total Protein Albumin LDL Cholesterol Direct Urine WBC (Auto) Crossmatch 04/07/22 04/07/22 04/07/22 03:51 03:51 03:51 WBC 14.6 H RBC 3.57 L Hgb 11.1 L Hct 33.2 L MCV MCHC RDW Plt Count 118 L Lymph % (Auto) 4.3 L [place] % (Auto) 8.8 H Lymph # (Auto) 0.6 L [place] # (Auto) 1.3 H Seg Neutrophils % 86.6 H Seg Neuts % (Manual) Lymphocytes % (Manual) Seg Neutrophils # 12.7 H Seg Neutrophils # Man Lymphocytes # (Manual) PT 15.2 H INR ABG pH ABG pO2 ABG HCO3 ABG O2 Saturation ABG Base Excess ABG Hemoglobin Oxyhemoglobin Sodium 133 L Potassium Chloride 96.0 L Carbon Dioxide 31 H BUN Creatinine 0.2 L Glucose 130 H POC Glucose Calcium 8.0 L Phosphorus Magnesium Total Creatine Kinase CK-MB (CK-2) Rel Index Troponin T C-Reactive Protein Total Protein Albumin LDL Cholesterol Direct Urine WBC (Auto) Crossmatch 04/07/22 04/07/22 04/08/22 04:25 09:10 04:49 WBC 16.1 H RBC 3.54 L Hgb 10.9 L Hct 33.3 L MCV MCHC RDW Plt Count Lymph % (Auto) [place] % (Auto) Lymph # (Auto) [place] # (Auto) Seg Neutrophils % Seg Neuts % (Manual) Lymphocytes % (Manual) Seg Neutrophils # Seg Neutrophils # Man Lymphocytes # (Manual) PT INR ABG pH ABG pO2 71.0 L 63.4 L ABG HCO3 31.5 H 40.0 H ABG O2 Saturation 94.9 L ABG Base Excess 5.9 H 13.6 H ABG Hemoglobin 11.3 L 9.0 L Oxyhemoglobin 93.6 L Sodium Potassium Chloride Carbon Dioxide BUN Creatinine Glucose POC Glucose Calcium Phosphorus Magnesium Total Creatine Kinase CK-MB (CK-2) Rel Index Troponin T C-Reactive Protein Total Protein Albumin LDL Cholesterol Direct Urine WBC (Auto) Crossmatch 04/08/22 04/08/22 04/08/22 04:49 09:53 10:25 WBC RBC Hgb Hct MCV MCHC RDW Plt Count Lymph % (Auto) [place] % (Auto) Lymph # (Auto) [place] # (Auto) Seg Neutrophils % Seg Neuts % (Manual) Lymphocytes % (Manual) Seg Neutrophils # Seg Neutrophils # Man Lymphocytes # (Manual) PT INR ABG pH ABG pO2 ABG HCO3 34.7 H ABG O2 Saturation ABG Base Excess 7.9 H ABG Hemoglobin 11.0 L Oxyhemoglobin Sodium 136 L Potassium Chloride 97.7 L Carbon Dioxide 33 H BUN Creatinine 0.2 L Glucose 155 H POC Glucose Calcium Phosphorus Magnesium Total Creatine Kinase CK-MB (CK-2) Rel Index Troponin T 0.030 H C-Reactive Protein Total Protein Albumin LDL Cholesterol Direct Urine WBC (Auto) Crossmatch 04/08/22 04/08/22 04/08/22 11:19 17:47 18:06 WBC RBC Hgb Hct MCV MCHC RDW Plt Count Lymph % (Auto) [place] % (Auto) Lymph # (Auto) [place] # (Auto) Seg Neutrophils % Seg Neuts % (Manual) Lymphocytes % (Manual) Seg Neutrophils # Seg Neutrophils # Man Lymphocytes # (Manual) PT INR ABG pH ABG pO2 ABG HCO3 ABG O2 Saturation ABG Base Excess ABG Hemoglobin Oxyhemoglobin Sodium Potassium Chloride Carbon Dioxide BUN Creatinine Glucose POC Glucose 121 H Calcium Phosphorus Magnesium Total Creatine Kinase 31 L 46 L CK-MB (CK-2) Rel Index 6.4 H 5.6 H Troponin T 0.030 H 0.031 H C-Reactive Protein Total Protein Albumin LDL Cholesterol Direct Urine WBC (Auto) Crossmatch 04/09/22 04/09/22 04/09/22 04:35 04:35 11:24 WBC 11.5 H RBC 3.16 L Hgb 9.9 L Hct 29.4 L MCV MCHC RDW Plt Count 131 L Lymph % (Auto) [place] % (Auto) Lymph # (Auto) [place] # (Auto) Seg Neutrophils % Seg Neuts % (Manual) Lymphocytes % (Manual) Seg Neutrophils # Seg Neutrophils # Man Lymphocytes # (Manual) PT INR ABG pH ABG pO2 ABG HCO3 ABG O2 Saturation ABG Base Excess ABG Hemoglobin Oxyhemoglobin Sodium Potassium Chloride 97.1 L Carbon Dioxide 35 H BUN Creatinine < 0.2 L Glucose 145 H POC Glucose 147 H Calcium Phosphorus Magnesium Total Creatine Kinase CK-MB (CK-2) Rel Index Troponin T C-Reactive Protein Total Protein Albumin LDL Cholesterol Direct Urine WBC (Auto) Crossmatch 04/09/22 04/09/22 04/09/22 13:00 17:32 23:48 WBC RBC Hgb Hct MCV MCHC RDW Plt Count Lymph % (Auto) [place] % (Auto) Lymph # (Auto) [place] # (Auto) Seg Neutrophils % Seg Neuts % (Manual) Lymphocytes % (Manual) Seg Neutrophils # Seg Neutrophils # Man Lymphocytes # (Manual) PT INR ABG pH ABG pO2 66.6 L ABG HCO3 38.2 H ABG O2 Saturation 94.4 L ABG Base Excess 10.7 H ABG Hemoglobin 10.7 L Oxyhemoglobin 92.8 L Sodium Potassium Chloride Carbon Dioxide BUN Creatinine Glucose POC Glucose 143 H 114 H Calcium Phosphorus Magnesium Total Creatine Kinase CK-MB (CK-2) Rel Index Troponin T C-Reactive Protein Total Protein Albumin LDL Cholesterol Direct Urine WBC (Auto) Crossmatch 04/10/22 04/10/22 04/10/22 04:48 04:48 05:34 WBC RBC 2.91 L Hgb 9.1 L Hct 27.7 L MCV 95 H MCHC RDW Plt Count Lymph % (Auto) [place] % (Auto) Lymph # (Auto) [place] # (Auto) Seg Neutrophils % Seg Neuts % (Manual) Lymphocytes % (Manual) Seg Neutrophils # Seg Neutrophils # Man Lymphocytes # (Manual) PT INR ABG pH ABG pO2 ABG HCO3 ABG O2 Saturation ABG Base Excess ABG Hemoglobin Oxyhemoglobin Sodium Potassium Chloride 95.7 L Carbon Dioxide 38 H BUN Creatinine < 0.2 L Glucose 118 H POC Glucose 127 H Calcium Phosphorus Magnesium Total Creatine Kinase CK-MB (CK-2) Rel Index Troponin T C-Reactive Protein Total Protein Albumin LDL Cholesterol Direct Urine WBC (Auto) Crossmatch 04/10/22 04/11/22 04/11/22 23:10 04:15 04:15 WBC 17.2 H RBC 2.98 L Hgb 9.2 L Hct 27.9 L MCV MCHC RDW Plt Count Lymph % (Auto) [place] % (Auto) Lymph # (Auto) [place] # (Auto) Seg Neutrophils % Seg Neuts % (Manual) Lymphocytes % (Manual) Seg Neutrophils # Seg Neutrophils # Man Lymphocytes # (Manual) PT INR ABG pH ABG pO2 ABG HCO3 ABG O2 Saturation ABG Base Excess ABG Hemoglobin Oxyhemoglobin Sodium Potassium Chloride 96.1 L Carbon Dioxide 35 H BUN Creatinine < 0.2 L Glucose 138 H POC Glucose 106 H Calcium 8.3 L Phosphorus Magnesium Total Creatine Kinase CK-MB (CK-2) Rel Index Troponin T C-Reactive Protein Total Protein Albumin LDL Cholesterol Direct Urine WBC (Auto) Crossmatch 04/11/22 04/11/22 04/11/22 05:31 13:18 16:20 WBC RBC Hgb Hct MCV MCHC RDW Plt Count Lymph % (Auto) [place] % (Auto) Lymph # (Auto) [place] # (Auto) Seg Neutrophils % Seg Neuts % (Manual) Lymphocytes % (Manual) Seg Neutrophils # Seg Neutrophils # Man Lymphocytes # (Manual) PT INR ABG pH ABG pO2 57.8 L ABG HCO3 40.5 H ABG O2 Saturation 90.6 L ABG Base Excess 12.6 H ABG Hemoglobin 10.5 L Oxyhemoglobin 89.0 L Sodium Potassium Chloride Carbon Dioxide BUN Creatinine Glucose POC Glucose 129 H 132 H Calcium Phosphorus Magnesium Total Creatine Kinase CK-MB (CK-2) Rel Index Troponin T C-Reactive Protein Total Protein Albumin LDL Cholesterol Direct Urine WBC (Auto) Crossmatch 04/11/22 04/11/22 04/12/22 17:29 23:17 04:00 WBC 17.4 H RBC 2.96 L Hgb 9.0 L Hct 28.0 L MCV 95 H MCHC RDW Plt Count Lymph % (Auto) [place] % (Auto) Lymph # (Auto) [place] # (Auto) Seg Neutrophils % Seg Neuts % (Manual) Lymphocytes % (Manual) Seg Neutrophils # Seg Neutrophils # Man Lymphocytes # (Manual) PT INR ABG pH ABG pO2 ABG HCO3 ABG O2 Saturation ABG Base Excess ABG Hemoglobin Oxyhemoglobin Sodium Potassium Chloride Carbon Dioxide BUN Creatinine Glucose POC Glucose 125 H 151 H Calcium Phosphorus Magnesium Total Creatine Kinase CK-MB (CK-2) Rel Index Troponin T C-Reactive Protein Total Protein Albumin LDL Cholesterol Direct Urine WBC (Auto) Crossmatch 04/12/22 04/12/22 04/12/22 04:00 17:03 23:39 WBC RBC Hgb Hct MCV MCHC RDW Plt Count Lymph % (Auto) [place] % (Auto) Lymph # (Auto) [place] # (Auto) Seg Neutrophils % Seg Neuts % (Manual) Lymphocytes % (Manual) Seg Neutrophils # Seg Neutrophils # Man Lymphocytes # (Manual) PT INR ABG pH ABG pO2 ABG HCO3 ABG O2 Saturation ABG Base Excess ABG Hemoglobin Oxyhemoglobin Sodium Potassium Chloride 97.4 L Carbon Dioxide 37 H BUN Creatinine < 0.2 L Glucose 127 H POC Glucose 106 H 107 H Calcium Phosphorus Magnesium Total Creatine Kinase CK-MB (CK-2) Rel Index Troponin T C-Reactive Protein Total Protein Albumin LDL Cholesterol Direct Urine WBC (Auto) Crossmatch 04/13/22 04/13/22 04/13/22 04:30 04:30 17:39 WBC 14.1 H RBC 2.66 L Hgb 8.4 L Hct 25.5 L MCV 96 H MCHC RDW Plt Count Lymph % (Auto) [place] % (Auto) Lymph # (Auto) [place] # (Auto) Seg Neutrophils % Seg Neuts % (Manual) Lymphocytes % (Manual) Seg Neutrophils # Seg Neutrophils # Man Lymphocytes # (Manual) PT INR ABG pH ABG pO2 ABG HCO3 ABG O2 Saturation ABG Base Excess ABG Hemoglobin Oxyhemoglobin Sodium Potassium Chloride 93.9 L Carbon Dioxide 39 H BUN Creatinine < 0.2 L Glucose POC Glucose 134 H Calcium Phosphorus 1.90 L Magnesium Total Creatine Kinase CK-MB (CK-2) Rel Index Troponin T C-Reactive Protein Total Protein Albumin LDL Cholesterol Direct Urine WBC (Auto) Crossmatch 04/14/22 04/14/22 04/14/22 05:03 05:03 09:10 WBC 15.6 H RBC 3.02 L Hgb 9.3 L Hct 28.8 L MCV 95 H MCHC RDW Plt Count Lymph % (Auto) [place] % (Auto) Lymph # (Auto) [place] # (Auto) Seg Neutrophils % Seg Neuts % (Manual) Lymphocytes % (Manual) Seg Neutrophils # Seg Neutrophils # Man Lymphocytes # (Manual) PT INR ABG pH ABG pO2 66.9 L ABG HCO3 44.5 H ABG O2 Saturation ABG Base Excess 17.2 H ABG Hemoglobin 8.1 L Oxyhemoglobin 94.8 L Sodium Potassium Chloride 93.8 L Carbon Dioxide 42 H* BUN Creatinine < 0.2 L Glucose 117 H POC Glucose Calcium Phosphorus Magnesium Total Creatine Kinase CK-MB (CK-2) Rel Index Troponin T C-Reactive Protein Total Protein Albumin LDL Cholesterol Direct Urine WBC (Auto) Crossmatch 04/15/22 04/15/22 04/16/22 04:44 04:44 04:16 WBC 13.0 H 12.6 H RBC 3.19 L 3.09 L Hgb 9.6 L 9.5 L Hct 30.2 L 29.1 L MCV 95 H MCHC RDW Plt Count 456 H Lymph % (Auto) [place] % (Auto) Lymph # (Auto) [place] # (Auto) Seg Neutrophils % Seg Neuts % (Manual) Lymphocytes % (Manual) Seg Neutrophils # Seg Neutrophils # Man Lymphocytes # (Manual) PT INR ABG pH ABG pO2 ABG HCO3 ABG O2 Saturation ABG Base Excess ABG Hemoglobin Oxyhemoglobin Sodium Potassium Chloride 95.5 L Carbon Dioxide 37 H BUN Creatinine < 0.2 L Glucose POC Glucose Calcium Phosphorus Magnesium Total Creatine Kinase CK-MB (CK-2) Rel Index Troponin T C-Reactive Protein Total Protein Albumin LDL Cholesterol Direct Urine WBC (Auto) Crossmatch 04/16/22 04/16/22 04/16/22 04:16 05:00 14:00 WBC RBC Hgb Hct MCV MCHC RDW Plt Count Lymph % (Auto) [place] % (Auto) Lymph # (Auto) [place] # (Auto) Seg Neutrophils % Seg Neuts % (Manual) Lymphocytes % (Manual) Seg Neutrophils # Seg Neutrophils # Man Lymphocytes # (Manual) PT INR ABG pH 7.324 L ABG pO2 55.6 L ABG HCO3 45.3 H ABG O2 Saturation 87.1 L ABG Base Excess 16.6 H ABG Hemoglobin 8.6 L Oxyhemoglobin 85.7 L Sodium Potassium Chloride 97.6 L Carbon Dioxide 36 H BUN Creatinine < 0.2 L Glucose 109 H POC Glucose 120 H Calcium Phosphorus Magnesium Total Creatine Kinase CK-MB (CK-2) Rel Index Troponin T C-Reactive Protein Total Protein Albumin LDL Cholesterol Direct Urine WBC (Auto) Crossmatch 04/17/22 04/17/22 04/17/22 04:36 04:36 04:57 WBC 14.4 H RBC 3.08 L Hgb 9.4 L Hct 29.0 L MCV MCHC RDW Plt Count Lymph % (Auto) [place] % (Auto) Lymph # (Auto) [place] # (Auto) Seg Neutrophils % Seg Neuts % (Manual) Lymphocytes % (Manual) Seg Neutrophils # Seg Neutrophils # Man Lymphocytes # (Manual) PT INR ABG pH ABG pO2 ABG HCO3 ABG O2 Saturation ABG Base Excess ABG Hemoglobin Oxyhemoglobin Sodium Potassium Chloride 95.9 L Carbon Dioxide 39 H BUN Creatinine < 0.2 L Glucose 140 H POC Glucose 137 H Calcium 8.3 L Phosphorus Magnesium Total Creatine Kinase CK-MB (CK-2) Rel Index Troponin T C-Reactive Protein Total Protein Albumin LDL Cholesterol Direct Urine WBC (Auto) Crossmatch 04/17/22 04/17/22 04/18/22 09:15 18:01 04:20 WBC 11.2 H RBC 3.00 L Hgb 9.3 L Hct 28.6 L MCV 95 H MCHC RDW Plt Count Lymph % (Auto) [place] % (Auto) Lymph # (Auto) [place] # (Auto) Seg Neutrophils % Seg Neuts % (Manual) Lymphocytes % (Manual) Seg Neutrophils # Seg Neutrophils # Man Lymphocytes # (Manual) PT INR ABG pH 7.345 L ABG pO2 ABG HCO3 48.2 H ABG O2 Saturation ABG Base Excess 19.2 H ABG Hemoglobin 9.7 L Oxyhemoglobin Sodium Potassium Chloride Carbon Dioxide BUN Creatinine Glucose POC Glucose 129 H Calcium Phosphorus Magnesium Total Creatine Kinase CK-MB (CK-2) Rel Index Troponin T C-Reactive Protein Total Protein Albumin LDL Cholesterol Direct Urine WBC (Auto) Crossmatch 04/18/22 04/18/22 04/18/22 04:20 17:35 23:50 WBC RBC Hgb Hct MCV MCHC RDW Plt Count Lymph % (Auto) [place] % (Auto) Lymph # (Auto) [place] # (Auto) Seg Neutrophils % Seg Neuts % (Manual) Lymphocytes % (Manual) Seg Neutrophils # Seg Neutrophils # Man Lymphocytes # (Manual) PT INR ABG pH ABG pO2 ABG HCO3 ABG O2 Saturation ABG Base Excess ABG Hemoglobin Oxyhemoglobin Sodium Potassium Chloride 96.8 L Carbon Dioxide 43 H* BUN 22 H Creatinine < 0.2 L Glucose 137 H POC Glucose 128 H 123 H Calcium 8.2 L Phosphorus Magnesium Total Creatine Kinase CK-MB (CK-2) Rel Index Troponin T C-Reactive Protein Total Protein Albumin LDL Cholesterol Direct Urine WBC (Auto) Crossmatch 04/19/22 04/19/22 04/19/22 04:08 04:08 08:50 WBC 16.8 H RBC 3.18 L Hgb 9.8 L Hct 30.1 L MCV 95 H MCHC RDW Plt Count Lymph % (Auto) [place] % (Auto) Lymph # (Auto) [place] # (Auto) Seg Neutrophils % Seg Neuts % (Manual) Lymphocytes % (Manual) Seg Neutrophils # Seg Neutrophils # Man Lymphocytes # (Manual) PT INR ABG pH ABG pO2 56.0 L ABG HCO3 47.1 H ABG O2 Saturation 93.3 L ABG Base Excess 20.1 H ABG Hemoglobin 8.0 L Oxyhemoglobin 91.8 L Sodium Potassium Chloride 96.2 L Carbon Dioxide 40 H BUN 24 H Creatinine < 0.2 L Glucose 125 H POC Glucose Calcium 8.3 L Phosphorus Magnesium Total Creatine Kinase CK-MB (CK-2) Rel Index Troponin T C-Reactive Protein Total Protein Albumin LDL Cholesterol Direct Urine WBC (Auto) Crossmatch 04/19/22 04/20/22 04/20/22 12:02 00:40 04:49 WBC 14.7 H RBC 3.36 L Hgb 10.3 L Hct 32.0 L MCV 95 H MCHC RDW Plt Count Lymph % (Auto) [place] % (Auto) Lymph # (Auto) [place] # (Auto) Seg Neutrophils % Seg Neuts % (Manual) Lymphocytes % (Manual) Seg Neutrophils # Seg Neutrophils # Man Lymphocytes # (Manual) PT INR ABG pH ABG pO2 ABG HCO3 ABG O2 Saturation ABG Base Excess ABG Hemoglobin Oxyhemoglobin Sodium Potassium Chloride Carbon Dioxide BUN Creatinine Glucose POC Glucose 124 H 140 H Calcium Phosphorus Magnesium Total Creatine Kinase CK-MB (CK-2) Rel Index Troponin T C-Reactive Protein Total Protein Albumin LDL Cholesterol Direct Urine WBC (Auto) Crossmatch 04/20/22 04/20/22 04/21/22 05:36 11:40 04:05 WBC RBC Hgb Hct MCV MCHC RDW Plt Count Lymph % (Auto) [place] % (Auto) Lymph # (Auto) [place] # (Auto) Seg Neutrophils % Seg Neuts % (Manual) Lymphocytes % (Manual) Seg Neutrophils # Seg Neutrophils # Man Lymphocytes # (Manual) PT INR ABG pH ABG pO2 ABG HCO3 ABG O2 Saturation ABG Base Excess ABG Hemoglobin Oxyhemoglobin Sodium Potassium Chloride 93.4 L Carbon Dioxide 40 H BUN 25 H Creatinine < 0.2 L Glucose 122 H POC Glucose 125 H 128 H Calcium Phosphorus Magnesium Total Creatine Kinase CK-MB (CK-2) Rel Index Troponin T C-Reactive Protein Total Protein Albumin LDL Cholesterol Direct Urine WBC (Auto) Crossmatch 04/21/22 04/22/22 04/22/22 10:31 05:03 05:03 WBC 12.6 H 12.7 H RBC 2.83 L 2.96 L Hgb 8.6 L 9.0 L Hct 26.9 L 28.0 L MCV 95 H 95 H MCHC RDW Plt Count Lymph % (Auto) [place] % (Auto) Lymph # (Auto) [place] # (Auto) Seg Neutrophils % Seg Neuts % (Manual) Lymphocytes % (Manual) Seg Neutrophils # Seg Neutrophils # Man Lymphocytes # (Manual) PT INR ABG pH ABG pO2 ABG HCO3 ABG O2 Saturation ABG Base Excess ABG Hemoglobin Oxyhemoglobin Sodium Potassium Chloride 93.9 L Carbon Dioxide 43 H* BUN 23 H Creatinine < 0.2 L Glucose 137 H POC Glucose Calcium Phosphorus Magnesium Total Creatine Kinase CK-MB (CK-2) Rel Index Troponin T C-Reactive Protein Total Protein Albumin LDL Cholesterol Direct Urine WBC (Auto) Crossmatch 04/22/22 04/23/22 04/24/22 08:34 09:40 04:29 WBC 14.4 H RBC 2.74 L Hgb 8.4 L Hct 25.7 L MCV MCHC RDW Plt Count Lymph % (Auto) [place] % (Auto) Lymph # (Auto) [place] # (Auto) Seg Neutrophils % Seg Neuts % (Manual) Lymphocytes % (Manual) Seg Neutrophils # Seg Neutrophils # Man Lymphocytes # (Manual) PT INR ABG pH ABG pO2 54.1 L 56.8 L ABG HCO3 48.5 H 49.0 H ABG O2 Saturation 92.1 L 90.9 L ABG Base Excess 20.9 H 20.8 H ABG Hemoglobin 9.0 L 8.4 L Oxyhemoglobin 90.6 L 89.5 L Sodium Potassium Chloride Carbon Dioxide BUN Creatinine Glucose POC Glucose Calcium Phosphorus Magnesium Total Creatine Kinase CK-MB (CK-2) Rel Index Troponin T C-Reactive Protein Total Protein Albumin LDL Cholesterol Direct Urine WBC (Auto) Crossmatch 04/24/22 04/25/22 04/26/22 04:29 09:00 04:22 WBC RBC 2.88 L Hgb 8.9 L Hct 26.8 L MCV MCHC RDW Plt Count Lymph % (Auto) [place] % (Auto) Lymph # (Auto) [place] # (Auto) Seg Neutrophils % Seg Neuts % (Manual) Lymphocytes % (Manual) Seg Neutrophils # Seg Neutrophils # Man Lymphocytes # (Manual) PT INR ABG pH 7.457 H ABG pO2 66.7 L ABG HCO3 42.6 H ABG O2 Saturation ABG Base Excess 15.3 H ABG Hemoglobin 8.8 L Oxyhemoglobin 94.1 L Sodium Potassium Chloride 90.7 L Carbon Dioxide 40 H BUN Creatinine < 0.2 L Glucose 133 H POC Glucose Calcium Phosphorus Magnesium Total Creatine Kinase CK-MB (CK-2) Rel Index Troponin T C-Reactive Protein Total Protein Albumin LDL Cholesterol Direct Urine WBC (Auto) Crossmatch 04/26/22 04/29/22 04/29/22 04:22 04:18 04:18 WBC 13.5 H RBC 2.96 L Hgb 8.9 L Hct 27.7 L MCV MCHC RDW Plt Count Lymph % (Auto) [place] % (Auto) Lymph # (Auto) [place] # (Auto) Seg Neutrophils % Seg Neuts % (Manual) Lymphocytes % (Manual) Seg Neutrophils # Seg Neutrophils # Man Lymphocytes # (Manual) PT INR ABG pH ABG pO2 ABG HCO3 ABG O2 Saturation ABG Base Excess ABG Hemoglobin Oxyhemoglobin Sodium Potassium Chloride 93.2 L 95.2 L Carbon Dioxide 37 H 38 H BUN Creatinine < 0.2 L < 0.2 L Glucose 114 H 116 H POC Glucose Calcium Phosphorus Magnesium Total Creatine Kinase CK-MB (CK-2) Rel Index Troponin T C-Reactive Protein Total Protein Albumin LDL Cholesterol Direct Urine WBC (Auto) Crossmatch 05/02/22 05/03/22 05/03/22 04:29 04:02 04:02 WBC 12.9 H 12.3 H RBC 2.82 L 2.83 L Hgb 8.4 L 8.4 L Hct 26.2 L 26.0 L MCV MCHC RDW Plt Count Lymph % (Auto) [place] % (Auto) Lymph # (Auto) [place] # (Auto) Seg Neutrophils % Seg Neuts % (Manual) Lymphocytes % (Manual) Seg Neutrophils # Seg Neutrophils # Man Lymphocytes # (Manual) PT INR ABG pH ABG pO2 ABG HCO3 ABG O2 Saturation ABG Base Excess ABG Hemoglobin Oxyhemoglobin Sodium 134 L Potassium Chloride 90.5 L Carbon Dioxide 38 H BUN 21 H Creatinine < 0.2 L Glucose 126 H POC Glucose Calcium Phosphorus Magnesium Total Creatine Kinase CK-MB (CK-2) Rel Index Troponin T C-Reactive Protein Total Protein Albumin LDL Cholesterol Direct Urine WBC (Auto) Crossmatch 05/03/22 05/03/22 05/04/22 12:02 17:42 09:36 WBC RBC Hgb Hct MCV MCHC RDW Plt Count Lymph % (Auto) [place] % (Auto) Lymph # (Auto) [place] # (Auto) Seg Neutrophils % Seg Neuts % (Manual) Lymphocytes % (Manual) Seg Neutrophils # Seg Neutrophils # Man Lymphocytes # (Manual) PT INR ABG pH ABG pO2 55.4 L ABG HCO3 43.7 H ABG O2 Saturation 87.4 L ABG Base Excess 16.1 H ABG Hemoglobin 9.1 L Oxyhemoglobin 85.7 L Sodium Potassium Chloride Carbon Dioxide BUN Creatinine Glucose POC Glucose 139 H 131 H Calcium Phosphorus Magnesium Total Creatine Kinase CK-MB (CK-2) Rel Index Troponin T C-Reactive Protein Total Protein Albumin LDL Cholesterol Direct Urine WBC (Auto) Crossmatch 05/04/22 05/04/22 05/05/22 17:08 23:10 04:23 WBC 14.4 H RBC 2.75 L Hgb 8.2 L Hct 25.2 L MCV MCHC RDW Plt Count Lymph % (Auto) [place] % (Auto) Lymph # (Auto) [place] # (Auto) Seg Neutrophils % Seg Neuts % (Manual) Lymphocytes % (Manual) Seg Neutrophils # Seg Neutrophils # Man Lymphocytes # (Manual) PT INR ABG pH ABG pO2 ABG HCO3 ABG O2 Saturation ABG Base Excess ABG Hemoglobin Oxyhemoglobin Sodium Potassium Chloride Carbon Dioxide BUN Creatinine Glucose POC Glucose 124 H 115 H Calcium Phosphorus Magnesium Total Creatine Kinase CK-MB (CK-2) Rel Index Troponin T C-Reactive Protein Total Protein Albumin LDL Cholesterol Direct Urine WBC (Auto) Crossmatch 05/05/22 05/05/22 05/06/22 04:23 21:39 05:13 WBC RBC Hgb Hct MCV MCHC RDW Plt Count Lymph % (Auto) [place] % (Auto) Lymph # (Auto) [place] # (Auto) Seg Neutrophils % Seg Neuts % (Manual) Lymphocytes % (Manual) Seg Neutrophils # Seg Neutrophils # Man Lymphocytes # (Manual) PT INR ABG pH ABG pO2 ABG HCO3 ABG O2 Saturation ABG Base Excess ABG Hemoglobin Oxyhemoglobin Sodium Potassium Chloride 91.3 L Carbon Dioxide 38 H BUN 23 H Creatinine < 0.2 L Glucose 128 H POC Glucose 141 H 136 H Calcium Phosphorus Magnesium Total Creatine Kinase CK-MB (CK-2) Rel Index Troponin T C-Reactive Protein Total Protein Albumin LDL Cholesterol Direct Urine WBC (Auto) Crossmatch 05/07/22 05/07/22 05/08/22 05:29 22:15 05:48 WBC RBC Hgb Hct MCV MCHC RDW Plt Count Lymph % (Auto) [place] % (Auto) Lymph # (Auto) [place] # (Auto) Seg Neutrophils % Seg Neuts % (Manual) Lymphocytes % (Manual) Seg Neutrophils # Seg Neutrophils # Man Lymphocytes # (Manual) PT INR ABG pH ABG pO2 ABG HCO3 ABG O2 Saturation ABG Base Excess ABG Hemoglobin Oxyhemoglobin Sodium Potassium Chloride Carbon Dioxide BUN Creatinine Glucose POC Glucose 125 H 142 H 122 H Calcium Phosphorus Magnesium Total Creatine Kinase CK-MB (CK-2) Rel Index Troponin T C-Reactive Protein Total Protein Albumin LDL Cholesterol Direct Urine WBC (Auto) Crossmatch 05/08/22 05/08/22 05/09/22 14:04 21:48 15:15 WBC RBC 2.61 L Hgb 7.7 L Hct 23.2 L MCV MCHC RDW Plt Count Lymph % (Auto) 8.1 L [place] % (Auto) Lymph # (Auto) 0.9 L [place] # (Auto) Seg Neutrophils % 86.1 H Seg Neuts % (Manual) Lymphocytes % (Manual) Seg Neutrophils # 9.2 H Seg Neutrophils # Man Lymphocytes # (Manual) PT INR ABG pH ABG pO2 ABG HCO3 ABG O2 Saturation ABG Base Excess ABG Hemoglobin Oxyhemoglobin Sodium Potassium Chloride Carbon Dioxide BUN Creatinine Glucose POC Glucose 112 H 107 H Calcium Phosphorus Magnesium Total Creatine Kinase CK-MB (CK-2) Rel Index Troponin T C-Reactive Protein Total Protein Albumin LDL Cholesterol Direct Urine WBC (Auto) Crossmatch 05/09/22 05/09/22 05/09/22 15:15 15:39 21:15 WBC RBC Hgb Hct MCV MCHC RDW Plt Count Lymph % (Auto) [place] % (Auto) Lymph # (Auto) [place] # (Auto) Seg Neutrophils % Seg Neuts % (Manual) Lymphocytes % (Manual) Seg Neutrophils # Seg Neutrophils # Man Lymphocytes # (Manual) PT INR ABG pH ABG pO2 ABG HCO3 ABG O2 Saturation ABG Base Excess ABG Hemoglobin Oxyhemoglobin Sodium Potassium Chloride 92.9 L Carbon Dioxide 40 H BUN Creatinine < 0.2 L Glucose 141 H POC Glucose 118 H 112 H Calcium Phosphorus Magnesium Total Creatine Kinase CK-MB (CK-2) Rel Index Troponin T C-Reactive Protein Total Protein Albumin LDL Cholesterol Direct Urine WBC (Auto) Crossmatch 05/10/22 05/12/22 05/13/22 15:14 00:25 04:02 WBC 13.3 H RBC 3.14 L Hgb 8.7 L Hct 28.0 L MCV MCHC 31 L RDW Plt Count Lymph % (Auto) [place] % (Auto) Lymph # (Auto) [place] # (Auto) Seg Neutrophils % Seg Neuts % (Manual) Lymphocytes % (Manual) Seg Neutrophils # Seg Neutrophils # Man Lymphocytes # (Manual) PT INR ABG pH ABG pO2 ABG HCO3 ABG O2 Saturation ABG Base Excess ABG Hemoglobin Oxyhemoglobin Sodium Potassium Chloride Carbon Dioxide BUN Creatinine Glucose POC Glucose 113 H 158 H Calcium Phosphorus Magnesium Total Creatine Kinase CK-MB (CK-2) Rel Index Troponin T C-Reactive Protein Total Protein Albumin LDL Cholesterol Direct Urine WBC (Auto) Crossmatch 05/13/22 05/13/22 05/13/22 04:02 06:32 13:09 WBC RBC Hgb Hct MCV MCHC RDW Plt Count Lymph % (Auto) [place] % (Auto) Lymph # (Auto) [place] # (Auto) Seg Neutrophils % Seg Neuts % (Manual) Lymphocytes % (Manual) Seg Neutrophils # Seg Neutrophils # Man Lymphocytes # (Manual) PT INR ABG pH ABG pO2 ABG HCO3 ABG O2 Saturation ABG Base Excess ABG Hemoglobin Oxyhemoglobin Sodium 135 L Potassium Chloride 91.1 L Carbon Dioxide 40 H BUN 23 H Creatinine < 0.2 L Glucose 139 H POC Glucose 129 H 117 H Calcium Phosphorus Magnesium Total Creatine Kinase CK-MB (CK-2) Rel Index Troponin T C-Reactive Protein Total Protein Albumin LDL Cholesterol Direct Urine WBC (Auto) Crossmatch 05/13/22 05/14/22 05/14/22 21:28 05:44 07:35 WBC RBC Hgb Hct MCV MCHC RDW Plt Count Lymph % (Auto) [place] % (Auto) Lymph # (Auto) [place] # (Auto) Seg Neutrophils % Seg Neuts % (Manual) Lymphocytes % (Manual) Seg Neutrophils # Seg Neutrophils # Man Lymphocytes # (Manual) PT INR ABG pH ABG pO2 ABG HCO3 ABG O2 Saturation ABG Base Excess ABG Hemoglobin Oxyhemoglobin Sodium Potassium Chloride Carbon Dioxide BUN Creatinine Glucose POC Glucose 109 H 130 H 125 H Calcium Phosphorus Magnesium Total Creatine Kinase CK-MB (CK-2) Rel Index Troponin T C-Reactive Protein Total Protein Albumin LDL Cholesterol Direct Urine WBC (Auto) Crossmatch 05/14/22 05/14/22 05/15/22 16:26 23:44 10:44 WBC 13.9 H RBC 2.71 L Hgb 7.5 L Hct 23.5 L MCV MCHC RDW 15.9 H Plt Count Lymph % (Auto) [place] % (Auto) Lymph # (Auto) [place] # (Auto) Seg Neutrophils % Seg Neuts % (Manual) Lymphocytes % (Manual) Seg Neutrophils # Seg Neutrophils # Man Lymphocytes # (Manual) PT INR ABG pH ABG pO2 ABG HCO3 ABG O2 Saturation ABG Base Excess ABG Hemoglobin Oxyhemoglobin Sodium Potassium Chloride Carbon Dioxide BUN Creatinine Glucose POC Glucose 112 H 189 H Calcium Phosphorus Magnesium Total Creatine Kinase CK-MB (CK-2) Rel Index Troponin T C-Reactive Protein Total Protein Albumin LDL Cholesterol Direct Urine WBC (Auto) Crossmatch 05/15/22 05/16/22 05/16/22 10:44 14:50 21:36 WBC RBC Hgb Hct MCV MCHC RDW Plt Count Lymph % (Auto) [place] % (Auto) Lymph # (Auto) [place] # (Auto) Seg Neutrophils % Seg Neuts % (Manual) Lymphocytes % (Manual) Seg Neutrophils # Seg Neutrophils # Man Lymphocytes # (Manual) PT INR ABG pH ABG pO2 ABG HCO3 ABG O2 Saturation ABG Base Excess ABG Hemoglobin Oxyhemoglobin Sodium 135 L Potassium 3.3 L D Chloride 91.5 L Carbon Dioxide 33 H D BUN 21 H Creatinine < 0.2 L Glucose 118 H POC Glucose 133 H 123 H Calcium 7.9 L Phosphorus Magnesium Total Creatine Kinase CK-MB (CK-2) Rel Index Troponin T C-Reactive Protein Total Protein Albumin LDL Cholesterol Direct Urine WBC (Auto) Crossmatch 05/17/22 05/17/22 05/17/22 03:41 03:41 05:51 WBC 16.2 H RBC 2.53 L Hgb 7.0 L Hct 21.5 L MCV MCHC RDW 16.2 H Plt Count Lymph % (Auto) [place] % (Auto) Lymph # (Auto) [place] # (Auto) Seg Neutrophils % Seg Neuts % (Manual) 96.0 H Lymphocytes % (Manual) 1.0 L Seg Neutrophils # Seg Neutrophils # Man 15.6 H Lymphocytes # (Manual) 0.2 L PT INR ABG pH ABG pO2 ABG HCO3 ABG O2 Saturation ABG Base Excess ABG Hemoglobin Oxyhemoglobin Sodium 132 L Potassium Chloride 95.0 L Carbon Dioxide BUN 22 H Creatinine < 0.2 L Glucose 122 H POC Glucose 123 H Calcium Phosphorus Magnesium Total Creatine Kinase CK-MB (CK-2) Rel Index Troponin T C-Reactive Protein 31.20 H Total Protein Albumin LDL Cholesterol Direct Urine WBC (Auto) Crossmatch 05/17/22 05/17/22 05/18/22 07:53 21:03 05:41 WBC 15.0 H RBC 2.58 L Hgb 7.1 L Hct 22.3 L MCV MCHC RDW 16.1 H Plt Count Lymph % (Auto) [place] % (Auto) Lymph # (Auto) [place] # (Auto) Seg Neutrophils % Seg Neuts % (Manual) Lymphocytes % (Manual) Seg Neutrophils # Seg Neutrophils # Man Lymphocytes # (Manual) PT INR ABG pH ABG pO2 ABG HCO3 ABG O2 Saturation ABG Base Excess ABG Hemoglobin Oxyhemoglobin Sodium Potassium Chloride Carbon Dioxide BUN Creatinine Glucose POC Glucose 106 H 123 H Calcium Phosphorus Magnesium Total Creatine Kinase CK-MB (CK-2) Rel Index Troponin T C-Reactive Protein Total Protein Albumin LDL Cholesterol Direct Urine WBC (Auto) Crossmatch 05/18/22 05/18/22 05/18/22 05:41 13:56 21:08 WBC RBC Hgb Hct MCV MCHC RDW Plt Count Lymph % (Auto) [place] % (Auto) Lymph # (Auto) [place] # (Auto) Seg Neutrophils % Seg Neuts % (Manual) Lymphocytes % (Manual) Seg Neutrophils # Seg Neutrophils # Man Lymphocytes # (Manual) PT INR ABG pH ABG pO2 ABG HCO3 ABG O2 Saturation ABG Base Excess ABG Hemoglobin Oxyhemoglobin Sodium Potassium Chloride 97.9 L Carbon Dioxide BUN 23 H Creatinine < 0.2 L Glucose 128 H POC Glucose 137 H Calcium Phosphorus Magnesium Total Creatine Kinase CK-MB (CK-2) Rel Index Troponin T C-Reactive Protein Total Protein Albumin LDL Cholesterol Direct Urine WBC (Auto) Crossmatch See Detail 05/18/22 05/19/22 05/20/22 23:21 06:10 00:43 WBC 13.5 H RBC 2.53 L Hgb 7.2 L Hct 21.5 L MCV MCHC RDW 16.4 H Plt Count Lymph % (Auto) [place] % (Auto) Lymph # (Auto) [place] # (Auto) Seg Neutrophils % Seg Neuts % (Manual) Lymphocytes % (Manual) Seg Neutrophils # Seg Neutrophils # Man Lymphocytes # (Manual) PT INR ABG pH ABG pO2 70.5 L ABG HCO3 30.3 H ABG O2 Saturation ABG Base Excess 4.9 H ABG Hemoglobin 5.9 L Oxyhemoglobin Sodium Potassium Chloride Carbon Dioxide BUN Creatinine Glucose POC Glucose 151 H Calcium Phosphorus Magnesium Total Creatine Kinase CK-MB (CK-2) Rel Index Troponin T C-Reactive Protein Total Protein Albumin LDL Cholesterol Direct Urine WBC (Auto) Crossmatch 05/20/22 05/20/22 05/20/22 04:40 04:40 07:08 WBC 13.3 H RBC 2.57 L Hgb 7.1 L Hct 22.2 L MCV MCHC RDW 16.3 H Plt Count Lymph % (Auto) [place] % (Auto) Lymph # (Auto) [place] # (Auto) Seg Neutrophils % Seg Neuts % (Manual) Lymphocytes % (Manual) Seg Neutrophils # Seg Neutrophils # Man Lymphocytes # (Manual) PT INR ABG pH ABG pO2 ABG HCO3 ABG O2 Saturation ABG Base Excess ABG Hemoglobin Oxyhemoglobin Sodium 134 L Potassium Chloride Carbon Dioxide BUN Creatinine < 0.2 L Glucose 170 H POC Glucose 174 H Calcium 8.1 L Phosphorus Magnesium Total Creatine Kinase CK-MB (CK-2) Rel Index Troponin T C-Reactive Protein Total Protein Albumin LDL Cholesterol Direct Urine WBC (Auto) Crossmatch 05/20/22 05/21/22 05/21/22 15:08 05:13 22:07 WBC RBC Hgb Hct MCV MCHC RDW Plt Count Lymph % (Auto) [place] % (Auto) Lymph # (Auto) [place] # (Auto) Seg Neutrophils % Seg Neuts % (Manual) Lymphocytes % (Manual) Seg Neutrophils # Seg Neutrophils # Man Lymphocytes # (Manual) PT INR ABG pH ABG pO2 ABG HCO3 ABG O2 Saturation ABG Base Excess ABG Hemoglobin Oxyhemoglobin Sodium Potassium Chloride Carbon Dioxide BUN Creatinine Glucose POC Glucose 114 H 149 H 113 H Calcium Phosphorus Magnesium Total Creatine Kinase CK-MB (CK-2) Rel Index Troponin T C-Reactive Protein Total Protein Albumin LDL Cholesterol Direct Urine WBC (Auto) Crossmatch 05/22/22 05/22/22 05:49 05:49 WBC RBC 3.05 L Hgb 8.6 L Hct 26.2 L MCV MCHC RDW 16.8 H Plt Count Lymph % (Auto) [place] % (Auto) Lymph # (Auto) [place] # (Auto) Seg Neutrophils % Seg Neuts % (Manual) Lymphocytes % (Manual) Seg Neutrophils # Seg Neutrophils # Man Lymphocytes # (Manual) PT INR ABG pH ABG pO2 ABG HCO3 ABG O2 Saturation ABG Base Excess ABG Hemoglobin Oxyhemoglobin Sodium 131 L Potassium Chloride 93.3 L Carbon Dioxide 32 H BUN Creatinine < 0.2 L Glucose 148 H POC Glucose Calcium 8.2 L Phosphorus Magnesium Total Creatine Kinase CK-MB (CK-2) Rel Index Troponin T C-Reactive Protein Total Protein Albumin LDL Cholesterol Direct Urine WBC (Auto) Crossmatch Chest x-ray: report reviewed, image reviewed Additional Studies: CHEST 1 VIEW 05/18/2022 5:42 AM INDICATION / CLINICAL INFORMATION: fevers. COMPARISON: Previous day. FINDINGS: SUPPORT DEVICES: Tracheostomy unchanged. HEART / MEDIASTINUM: No significant abnormality. LUNGS / PLEURA: Patchy infiltrates remain at the lung bases. Mild improving basilar aeration. No pneumothorax. ADDITIONAL FINDINGS: No significant additional findings. IMPRESSION: Mild improving basilar aeration. Allied health notes reviewed: RT
[2022-05-22] MEDS: DOCUSATE SODIUM 100 MG/10 ML ORAL LIQD FEEDTUBE SCH ×2 (11:45→21:57)
[2022-05-22] MEDS: POLYETHYLENE GLYCOL 3350 17 GM POWDER FEEDTUBE SCH (11:45)
--- NOTE | 2022-05-22 14:55 | Progress Note ---
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, recently hospitalized at [facility] admitted for acute hypoxemic respiratory failure 2/2 pneumonia Neuro: h/o ALS -s/p precedex, fentanyl gtt -Reorientation as needed -Maintain sleep-wake cycle -As needed analgesia -CT head with no acute intracranial process -Per family patient is nonverbal at baseline but responsive -Seroquel BID Cardiac: Suspect ischemic coronary artery disease, ST, h/o cardiomyopathy -Cardiology consulted, appreciate recommendations -continue conservative management -Blood pressure monitoring per protocol -s/p Vasopressor support with Levophed -Echocardiogram shows ejection fraction of 40 to 45%, mild global hypokinesis of left ventricle -Nitro patch, BB Respiratory: Acute hypoxic respiratory failure -CCM consulted, appreciate recommendations -Intubated on 04/02 with a 7.50 ETT attempt at the lips -s/p trach on 04/14 and s/p bronch on 04/15 -A.m. vent settings: PRVC Rate 14, TV 500, Peep 12, FiO2 50% -See RT notes for titration -SCpo patch -VAP bundle -SPO2 monitoring GI: Moderate protein calorie malnutrition -24 hours + 1330 mL -PPI -Peg 04/14 -NTR consulted for tube feedings -BR: Senokot/colace, MiraLAX : Metabolic Alkalosis -Record intake and output -Renally dose medications -Avoid nephrotoxic medications -Bladder scan q 8 hours -trend BMP ID: Sepsis, Acute Bronchopneumonia, HAP (Pseudomonas and Enterobacter tracheal aspirate), blood culture with bacillus species, Stage 4 sacra ulcer -Infectious disease. wcon, and general surgery consulted, appreciate recommendation-> signed off -Per infectious disease patient was recently admitted to [facility] but discharged home with home hospice and not giving antibiotics -04/15 Tracheal aspirate with Pseudomonas aeruginosa, Enterobacter aerogenes -04/02 blood culture with bacillus species, 04/05 blood culture NGTD -MRSA (-) -Abx per ID -s/p cefepime for 14 days -Currently on Meropenum de escalated to IV levofloxacin 500 mg daily x 3 more d ays -05/19 s/p wound debridement, mesh placement to wound bed and wound vac placement -wound cultures pending -Dressing changes per RN -Monitor WBC and temperature curve Endo: NAD -Avoid hypoglycemia -SSI -Accu-Cheks q 6 Heme: Leukocytosis -Heparin subq -Trend CBC -s/p 1 unit prbc -Transfuse hemoglobin less than 7 -SCDs to BLE while in bed Advance Care Planning - Disease education, care plan, diagnoses, and prognosis were discussed patient's , Carly Lopez, and patient daughter, Kaylee Warren, who translated for #[phone]. They reported that patient was following at [facility] for his ALS and during recent hospitalization at [facility] they were told nothing else can be offered to patient at this time and patient was discharge home with home hospice and PO morphine. First hospice visit was on , 04/01 however, patient became unresponsive 04/02 and they brought in to the hospital. - Goal of care and code status were also addressed at that time. Family wants to wait for a couple days to see how patient respond to current treatment before making a decision. All questions and concerns were addressed at this time. Patient family acknowledged understanding and agreement with care plan. -Patient remains a FULL CODE status. -04/05: Discussion at bedside with interpreting service with Dr. Valdivia and family state they would discuss next steps amongst themselves and let healthcare team know of decisions -04/06: extensive discussion with family ( and son) with Dr. Grayson regarding goals of care -04/08: Extensive discussion with with the use of educational interpreter line regarding goals of care; no decision made. Possible consult to surgery for trach/PEG early next week. -04/09: Discussion with and her sister with Dr. Grayson and then with Dr. Pineda-> Consulted surgery for trach/peg -04/30 Insurance Denied LTAC, plan for possible SNF placement now. Case management to arrange -Family declined SNF -Awaiting discharge home with ventilator setup for home care due to need for ventilation secondary to trachestomy -DC will be prolonged for 1 week d/t need to remve wound mesh placed by surgery on 05/17 The high probability of a clinically significant, sudden or life threatening deterioration of the [resp] system(s) required my full and direct attention, intervention and personal management. The aggregate critical care time was [60] minutes. 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 Work-up in the emergency department revealed leukocytosis, elevated troponin and hyponatremia and CXR revealed moderate to large pleural effusion on the right. Patient was having agonal breathing in the emergency department and was intubated. Patient was admitted to the hospitalist service with consults to [facility], cardiology and infectious disease for further work-up. Hospital Course to Date: 04/03: Intubated and Sedated on versed gtt, RASS-5. CT head/brain noted with no acute intracranial abnormality. Plan to initiated precededx gtt and wean off versed for a RASS goal of 0 to -2. CT chect also reviewed, findings are most consistent with acute bronchopneumonia. Continue empiric IV Abx, vent adjustment per CCM. ID consulted. Continue to F/U on cultures. Titrate pressor for MAP above 65. Medical records requested from [facility]. 04/04: Remains stable on the vent, easily arousable on precedex gtt, not following commands. Plan for SAT/SBT today. PRN analgesia for CPOT greater than 3. Fevers improved, cultures and procal pending. Continue current IV abx, ID also consulted. Remains on low dose pressors, titrate pressors for a MAP above 65. 04/05: Long discussion with family with use of translation phone with [facility] regarding goals of care. Family to have meeting amongst themselves and informed care team of decisions. Fentanyl drip added for respiratory distress. Remains on Precedex drip. Antibiotics per ID. Given 2L NS bolus with levophed gtt 04/06: Family discussion with Dr. Grayson for goals of care. CXR shows possible mucus plug, continue CPT as FiO2 is being able to be weaned. Potassium repleted. Weaning fentnyl gtt. 04/07: Ultrasound guided thoracentesis today scheduled, inadequate amount of pleural effusion on so not completed. Patient was started on Levophed overnight which was weaned off this morning however had to be started twice a day. Remains on fentanyl and Precedex. Cardiology discontinued BB and ACEi in setting of hypotension. 04/08: COVID-19 PCR negative. Routine EEG ordered by cardiology which showed ST changes, cardiology aware. They will continue conservative treatment. Repeat troponins 0.030 which are less than admit of 0.048. Dr. Grayson had a long discussion with with the use of educational interpreter today at bedside and has not made a decision regarding goals of care. Possible consult to surgery for trach/PEG early next week. Continues to require Precedex and fentanyl drip for sedation. Carvedilol/lisinopril discontinued as patient is continuously on Levophed. 04/09: No acute events reported overnight, remains on fentanyl, Precedex and Levophed drips. Dr. Grayson and Dr. Pineda updated family at bedside extensively today. Consulted surgery for trach/PEG. COVID-19 PCR negative. 04/10: Patient noted to have desaturation episodes, FiO2 increased slightly to 35%. Will add Mucomyst. Remains on fentanyl and Precedex. Off of Levophed. Surgery consulted for trach/PEG. 04/11: FiO2 increased over night likely related to hypoxia, continues on fent gtt, weaning precedex gtt as he is also on Seroquel. Will d/w CCM re scheduled or prn oxycodone 04/12: Periods of hypoxia and tachycardia this am. Symptoms improved post deep suction and tracheal lavage, Repeat CXR noted with no significant change. Cont inue CPT and mucomyst. Plan for possible trach/PEG tomorrow by general surgery. 04/13: Remains stable on the vent. Patient is wake and tracking but does not follow simple commands. No report of hypoxia from overnight, continue CPT and mucomyst. Plan for track and PEG today by General Surgery. Plan for LTAC placement post procedure, case management to arrange. 04/14: VIRGILIO overnight, Trach and PEG postponed for today by general surgery. Plan for LTAC placement post procedure, case management to arrange. 04/15: S/p Trach and PEG. Up to 80% FiO2 this am, this am CXR noted suggesting possible mucus plug. D/W CCM plan for bronch today. Continue CPT and mucomyst. Plan of care thoroughly discussed with patient's and son (who translated for ) at the bedside. Per , clinical lab specialist had already discussed the risks and benefits of the procedure yesterday. She verbalized understanding and agreed with procedure and current care plan, consent signed. Okay to use PEG-tube for meds this am, resume TF once okay by general Surgery. Case management to arrange LTAC placement. 04/16: s/p Bronchocopy by CCM. FiO2 down to 60%, angela 10 this am. This am CXR with moderate improvement. Continue CPT and mucomyst, wean Fio2 as tolerated for SPO2 above 92%. Patient is tolerating TF, advance to goal as ordered. Possible LTAC placement, case management to arrange. 04/17: VIRGILIO overnight. remains stable on the vent, recent CXR and this am ABG noted. Continue CPT and mucomyst, wean Fio2 as tolerated. 04/18: Remains stable on the vent, Fio2 down to 55% and peep of 8 this am. Continue to wean as tolerated, CPT, and mucomyst. Dsiposition- LTAC placement, case management to arrange. 04/19: No acute events overnight. Continue current management. 04/20: No acute events overnight, continue current management 04/21: Patient had chest ultrasound which showed trace pleural effusions, chest x-ray improved after the addition of Mucomyst yesterday. FiO2 55-65%. No acute events overnight. more interactive today. 04/22: Seroquel changed to BID, FiO2 was increased to 60%. RT increased FIO2 to 100 d/t desaturation into the 80s but was able to wean down. CCM increased PEEP and decreased FiO2. 04/23: CCM increase PEEP, no acute events reported overnight. 04/24: Spoke to RT about decreasing FiO2 as tolerated. No acute events reported overnight. Continue supportive management. 04/25: Weaning as tolerated. no acute events overnight. RT to attempt CPAP again today 04/26: VIRGILIO overnight. Patient failed PSV trial again this morning. Continue supportive management and daily PST trial. 04/27: Patient failed PSV trial again this am due to episodes of apnea. Continue daily PSV trial as tolerated. Case management to arrange LTAC placement 04/28: Remains stable. Continue daily PSV trial as tolerated. Awaiting approval for LTAC 04/29: VIRGILIO overnight. Continue daily PSV trial. Awaiting approval for LTAC, case management to arrange. 04/30: Patient continue to fail PSV trial. Per case management patient was denied for LTAC, now possible SNF placement. Case managemen to arrange. Continue supportive measures and daily PSV trial as tolerated. 05/01: VIRGILIO overnight. Continue supportive measures and daily PSV trial as tolerated. Possible SNF placement. 05/02: Continue supportive measures and daily PSV trial as tolerated. Possible SNF placement, case management to arrange 05/03: no acute events overnight, CM arranging home vent setup. Family declined SNF. 05/04: RN/RT reports thin secretions, increase in FiO2 for decreased oxygen on ABG. No acute events overnight. 05/05: Family scheduled for teaching session today at 2pm. Increase in FiO2 overnight to 45%. Awaiting vent setup for home care for ventilation secondary to tracheostomy. 05/06: No acute events reported overnight, T-max 100.9. FiO2 45%. Awaiting discharge home with vent when teaching is completed 05/07: No acute events reported overnight, Awaiting discharge home with vent when teaching is completed 05/08: No acute events reported overnight, Awaiting discharge home with vent when teaching is completed 05/09: no acute events reported overnight. Ordered routine labs today. Family continuing with vent training. Anticipate discharge home this week possibly on Tuesday. 05/10: VIRGILIO overnight. Continue current supportive measures and family training at the bedside. Plan for discharge home tomorrow. 05/11: Discharge home today. 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 Patient desated on home vent at max setting. Home vent is not sufficient to support patient's ventilation need. D/w CCM, Dr. Valdivia, who recommend SNF placement at this time. Patient's family notified at the bedside. All questions and concerns were address at this time. Further discussion on alternative placement to be determine and discussed with patient's family and case management today. The respiratory therapist from [facility] is schedule to come at 1400 today for further assessment. 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; WOCN consult placed 05-18 ID and gen surg consult 05/19: s/p sacral wound debridement with Dr. Jerome with wound vac and mesh placement. Per Dr. Jerome patient will need to either stay in the hospital 1 week to be taken back to the OR for removal of mesh on wound or may be discharged but will have to visit the wound clinic in 2 weeks. We will alert bilingual case manager. No acute events overnight. 05/20: Remains with leukocytosis, wound VAC in place. Discharge requested to be postponed by surgery. Remains on meropenem and vancomycin. No acute events reported overnight. 05/21: IV abx deescalated by ID, no acute events overnight. Continue current management. 05/22: No acute events reported overnight. Hyponatremia noted. Decreased free water flush. We will repeat labs in 48 hours. Hospitalist Physical - Constitutional Vitals: Temp Pulse Resp BP Pulse Ox 98 F 123 H 18 112/76 92 05/22/22 12:00 05/22/22 14:00 05/22/22 14:00 05/22/22 14:00 05/22/22 14:00 General appearance: Present: no acute distress, cachectic, other (trach/) - EENT Eyes: Present: PERRL, EOM intact ENT: hearing intact, poor dentition - Neck Neck: Present: normal ROM - Respiratory Respiratory effort: normal Respiratory: bilateral: CTA, diminished - Cardiovascular Rhythm: regular Heart Sounds: Present: S1 & S2. Absent: systolic murmur, diastolic murmur - Extremities Extremities: no ischemia, pulses intact, pulses symmetrical, No edema, normal temperature, normal color Peripheral Pulses: within normal limits - Abdominal General gastrointestinal: soft, non-tender, non-distended, normal bowel sounds - Integumentary Integumentary: Present: warm, dry - Psychiatric Psychiatric: cooperative - Neurologic Neurologic: other (does not move BLE at baseline) - Allied Health Allied health notes reviewed: nursing, RT HEART Score - HEART Score Troponin: Troponin T 0.031 ng/mL (0.00-0.029) H 04/08/22 17:47 Results - Labs CBC & Chem 7: 05/22/22 05:49 05/22/22 05:49 Labs: Laboratory Last Values WBC 9.4 K/mm3 (4.5-11.0) 05/22/22 05:49 RBC 3.05 M/mm3 (3.65-5.03) L 05/22/22 05:49 Hgb 8.6 gm/dl (11.8-15.2) L 05/22/22 05:49 Hct 26.2 % (35.5-45.6) L 05/22/22 05:49 MCV 86 fl (84-94) 05/22/22 05:49 MCH 28 pg (28-32) 05/22/22 05:49 MCHC 33 % (32-34) 05/22/22 05:49 RDW 16.8 % (13.2-15.2) H 05/22/22 05:49 Plt Count 164 K/mm3 (140-440) 05/22/22 05:49 Lymph % (Auto) 8.1 % (13.4-35.0) L 05/09/22 15:15 Garza % (Auto) 4.9 % (0.0-7.3) 05/09/22 15:15 Eos % (Auto) 0.6 % (0.0-4.3) 05/09/22 15:15 Baso % (Auto) 0.3 % (0.0-1.8) 05/09/22 15:15 Lymph # (Auto) 0.9 K/mm3 (1.2-5.4) L 05/09/22 15:15 Garza # (Auto) 0.5 K/mm3 (0.0-0.8) 05/09/22 15:15 Eos # (Auto) 0.1 K/mm3 (0.0-0.4) 05/09/22 15:15 Baso # (Auto) 0.0 K/mm3 (0.0-0.1) 05/09/22 15:15 Add Manual Diff Complete 05/17/22 03:41 Total Counted 100 05/17/22 03:41 Seg Neutrophils % Manual Training Teacher 05/17/22 03:41 Seg Neuts % (Manual) 96.0 % (40.0-70.0) H 05/17/22 03:41 Band Neutrophils % 0 % 05/17/22 03:41 Lymphocytes % (Manual) 1.0 % (13.4-35.0) L 05/17/22 03:41 Reactive Lymphs % (Man) 0 % 05/17/22 03:41 Monocytes % (Manual) 3.0 % (0.0-7.3) 05/17/22 03:41 Eosinophils % (Manual) 0 % (0.0-4.3) 05/17/22 03:41 Basophils % (Manual) 0 % (0.0-1.8) 05/17/22 03:41 Metamyelocytes % 0 % 05/17/22 03:41 Myelocytes % 0 % 05/17/22 03:41 Promyelocytes % 0 % 05/17/22 03:41 Blast Cells % 0 % 05/17/22 03:41 Nucleated RBC % Not Reportable 05/17/22 03:41 Seg Neutrophils # 9.2 K/mm3 (1.8-7.7) H 05/09/22 15:15 Seg Neutrophils # Man 15.6 K/mm3 (1.8-7.7) H 05/17/22 03:41 Band Neutrophils # 0.0 K/mm3 05/17/22 03:41 Lymphocytes # (Manual) 0.2 K/mm3 (1.2-5.4) L 05/17/22 03:41 Abs React Lymphs (Man) 0.0 K/mm3 05/17/22 03:41 Monocytes # (Manual) 0.5 K/mm3 (0.0-0.8) 05/17/22 03:41 Eosinophils # (Manual) 0.0 K/mm3 (0.0-0.4) 05/17/22 03:41 Basophils # (Manual) 0.0 K/mm3 (0.0-0.1) 05/17/22 03:41 Metamyelocytes # 0.0 K/mm3 05/17/22 03:41 Myelocytes # 0.0 K/mm3 05/17/22 03:41 Promyelocytes # 0.0 K/mm3 05/17/22 03:41 Blast Cells # 0.0 K/mm3 05/17/22 03:41 WBC Morphology Not Reportable 05/17/22 03:41 Hypersegmented Neuts Not Reportable 05/17/22 03:41 Hyposegmented Neuts Not Reportable 05/17/22 03:41 Hypogranular Neuts Not Reportable 05/17/22 03:41 Smudge Cells Not Reportable 05/17/22 03:41 Toxic Granulation Not Reportable 05/17/22 03:41 Toxic Vacuolation Not Reportable 05/17/22 03:41 Dohle Bodies Not Reportable 05/17/22 03:41 Pelger-Huet Anomaly Not Reportable 05/17/22 03:41 Terry Rods Not Reportable 05/17/22 03:41 Platelet Estimate Consistent w auto 05/17/22 03:41 Clumped Platelets Not Reportable 05/17/22 03:41 Plt Clumps, EDTA Not Reportable 05/17/22 03:41 Large Platelets Not Reportable 05/17/22 03:41 Giant Platelets Not Reportable 05/17/22 03:41 Platelet Satelliting Not Reportable 05/17/22 03:41 Plt Morphology Comment Not Reportable 05/17/22 03:41 RBC Morphology Not Reportable 05/17/22 03:41 Dimorphic RBCs Not Reportable 05/17/22 03:41 Polychromasia Not Reportable 05/17/22 03:41 Hypochromasia Not Reportable 05/17/22 03:41 Poikilocytosis Not Reportable 05/17/22 03:41 Anisocytosis 1+ 05/17/22 03:41 Microcytosis Not Reportable 05/17/22 03:41 Macrocytosis Not Reportable 05/17/22 03:41 Spherocytes Not Reportable 05/17/22 03:41 Pappenheimer Bodies Not Reportable 05/17/22 03:41 Sickle Cells Not Reportable 05/17/22 03:41 Target Cells Not Reportable 05/17/22 03:41 Tear Drop Cells Not Reportable 05/17/22 03:41 Ovalocytes Not Reportable 05/17/22 03:41 Helmet Cells Not Reportable 05/17/22 03:41 [place] Bodies Not Reportable 05/17/22 03:41 [place] Rings Not Reportable 05/17/22 03:41 [place] Cells Not Reportable 05/17/22 03:41 Bite Cells Not Reportable 05/17/22 03:41 Crenated Cell Not Reportable 05/17/22 03:41 Elliptocytes Not Reportable 05/17/22 03:41 Acanthocytes (Spur) Not Reportable 05/17/22 03:41 Rouleaux Not Reportable 05/17/22 03:41 Hemoglobin C Crystals Not Reportable 05/17/22 03:41 Schistocytes Not Reportable 05/17/22 03:41 Malaria parasites Not Reportable 05/17/22 03:41 [place] Bodies Not Reportable 05/17/22 03:41 Hem Pathologist Commnt No 05/17/22 03:41 PT 13.6 Sec. (12.2-14.9) 04/13/22 04:30 INR 0.94 (0.87-1.13) 04/13/22 04:30 APTT 35.7 Sec. (24.2-36.6) 04/07/22 03:51 ABG pH 7.385 pH Units (7.350-7.450) 05/19/22 06:10 ABG pCO2 51.9 mm Hg 05/19/22 06:10 ABG pO2 70.5 mm Hg (80.0-90.0) L 05/19/22 06:10 ABG HCO3 30.3 mmol/L (20.0-26.0) H 05/19/22 06:10 ABG O2 Saturation 97.6 % (95.0-99.0) 05/19/22 06:10 ABG O2 Content 8.1 (0.0-44) 05/19/22 06:10 ABG Base Excess 4.9 mmol/L (-2.0-3.0) H 05/19/22 06:10 ABG Hemoglobin 5.9 gm/dl (14.0-18.0) L 05/19/22 06:10 ABG Carboxyhemoglobin 1.5 % (0.0-5.0) 05/19/22 06:10 ABG Methemoglobin 0.4 % (0.0-1.5) 05/19/22 06:10 Oxyhemoglobin 95.8 % (95.0-99.0) 05/19/22 06:10 FiO2 55 % 05/19/22 06:10 Sodium 131 mmol/L (137-145) L 05/22/22 05:49 Potassium 4.7 mmol/L (3.6-5.0) 05/22/22 05:49 Chloride 93.3 mmol/L (98-107) L 05/22/22 05:49 Carbon Dioxide 32 mmol/L (22-30) H 05/22/22 05:49 Anion Gap 10 mmol/L 05/22/22 05:49 BUN 13 mg/dL (9-20) 05/22/22 05:49 Creatinine < 0.2 mg/dL (0.8-1.3) L 05/22/22 05:49 Estimated GFR > 60 ml/min 05/22/22 05:49 BUN/Creatinine Ratio 65 % 05/22/22 05:49 Glucose 148 mg/dL (75-100) H 05/22/22 05:49 POC Glucose 136 mg/dL (70-105) H 05/22/22 14:09 Lactic Acid 1.90 mmol/L (0.7-2.0) 04/02/22 19:39 Calcium 8.2 mg/dL (8.4-10.2) L 05/22/22 05:49 Phosphorus 2.70 mg/dL (2.5-4.5) 05/22/22 05:49 Magnesium 1.80 mg/dL (1.7-2.3) 05/22/22 05:49 Total Bilirubin 0.80 mg/dL (0.1-1.2) 04/02/22 19:39 AST 15 units/L (5-40) 04/02/22 19:39 ALT 9 units/L (7-56) 04/02/22 19:39 Alkaline Phosphatase 43 units/L (35-129) 04/02/22 19:39 Total Creatine Kinase 46 units/L (55-170) L 04/08/22 17:47 CK-MB (CK-2) 2.6 ng/mL (0.0-4.0) 04/08/22 17:47 CK-MB (CK-2) Rel Index 5.6 (0-4) H 04/08/22 17:47 Troponin T 0.031 ng/mL (0.00-0.029) H 04/08/22 17:47 C-Reactive Protein 31.20 mg/dL (0.00-1.30) H 05/17/22 03:41 Total Protein 4.6 g/dL (6.3-8.2) L 04/02/22 19:39 Albumin 2.7 g/dL (3.9-5) L 04/02/22 19:39 Albumin/Globulin Ratio 1.4 % 04/02/22 19:39 Triglycerides 80 mg/dL (2-149) 04/02/22 19:39 Cholesterol 94 mg/dL (50-199) 04/02/22 19:39 LDL Cholesterol Direct 27 mg/dL (50-130) L 04/02/22 19:39 HDL Cholesterol 47 mg/dL (40-59) 04/02/22 19:39 Cholesterol/HDL Ratio 2.00 % 04/02/22 19:39 Procalcitonin 1.30 ng/mL (<0.15) 05/17/22 03:41 Urine Color Aracely (Yellow) 05/18/22 03:50 Urine Turbidity Clear (Clear) 05/18/22 03:50 Urine pH 5.0 (5.0-7.0) 05/18/22 03:50 Ur Specific Imogene 1.030 (1.003-1.030) 05/18/22 03:50 Urine Protein 30 mg/dl mg/dL (Negative) 05/18/22 03:50 Urine Glucose (UA) Neg mg/dL (Negative) 05/18/22 03:50 Urine Ketones Tr mg/dL (Negative) 05/18/22 03:50 Urine Blood Neg (Negative) 05/18/22 03:50 Urine Nitrite Neg (Negative) 05/18/22 03:50 Urine Bilirubin Neg (Negative) 05/18/22 03:50 Urine Urobilinogen < 2.0 mg/dL (<2.0) 05/18/22 03:50 Ur Leukocyte Esterase Neg (Negative) 05/18/22 03:50 Urine WBC (Auto) 1.0 /HPF (0.0-6.0) 05/18/22 03:50 Urine RBC (Auto) 1.0 /HPF (0.0-6.0) 05/18/22 03:50 U Epithel Cells (Auto) 2.0 /HPF (0-13.0) 05/18/22 03:50 Urine Bacteria (Auto) 1+ /HPF (Negative) 05/18/22 03:50 Hyaline Casts 1 /LPF 04/05/22 17:45 Urine Mucus Few /HPF 05/18/22 03:50 Nasal Screen MRSA (PCR) Negative (Negative) 04/05/22 12:37 Vancomycin Trough 16.2 ug/mL (5.0-20.0) 05/20/22 20:41 Coronavirus (PCR) Negative (Negative) 04/07/22 14:52 Blood Type O POSITIVE 05/18/22 13:56 Antibody Screen Negative 05/18/22 13:56 Crossmatch See Detail 05/18/22 13:56 Microbiology: Microbiology 05/17/22 17:04 Peripheral/Venous Blood Culture - Preliminary NO GROWTH AFTER 4 DAYS 05/17/22 17:04 Peripheral/Venous Blood Culture - Preliminary NO GROWTH AFTER 4 DAYS 05/19/22 Unknown Buttock Surgical Biopsy Culture - Preliminary Perez/IV: Voiding Method Condom Catheter Active Medications - Current Medications Current Medications: Generic Name Dose Route Start Last Admin Trade Name Freq PRN Reason Stop Dose Admin Acetaminophen 650 mg 04/02/22 23:53 05/18/22 09:01 Acetaminophen 325 Mg Tab PO 650 mg Q6H PRN Administration Pain MILD(1-3)/Fever >100.5/FAITH Acetylcysteine 200 mg 05/04/22 20:00 05/21/22 20:28 Acetylcysteine 20% 200 Mg/1 Ml *For Inhalation Use* INHALATION 200 mg Q12HRT SEGUNDO Administration Albuterol 2.5 mg 05/05/22 20:00 05/21/22 20:28 Albuterol 2.5 Mg/3 Ml Nebu IH 2.5 mg Q12HRT SEGUNDO Administration Lipase/Protease/Amylase 1 each 05/20/22 15:35 Lipase 10,500/Protease 25,000/Amylase 43,750 (Units) Dr Patterson FEEDTUBE PRN PRN For Clogged Feeding Tube Baclofen 10 mg 05/19/22 20:00 05/22/22 13:35 Baclofen 10 Mg Tab PO 10 mg TID SEGUNDO Administration Bisacodyl 10 mg 04/07/22 09:44 04/12/22 10:06 Bisacodyl 10 Mg Rect Supp VA 10 mg QDAY PRN Administration Constipation Docusate Sodium 100 mg 05/18/22 22:00 05/22/22 11:45 Docusate Sodium 100 Mg/10 Ml Oral Liqd FEEDTUBE Not Given BID SEGUNDO Famotidine 20 mg 04/06/22 10:00 05/22/22 09:33 Famotidine 20 Mg Tab FEEDTUBE 20 mg BID SEGUNDO Administration Fentanyl 50 mcg 04/04/22 15:56 05/19/22 21:24 Fentanyl 100 Mcg/2 Ml Inj IV 50 mcg Q2HR PRN Administration For CPOT of greater than 3 Heparin Sodium (Porcine) 5,000 unit 04/03/22 06:00 05/22/22 13:35 Heparin 5,000 Unit/1 Ml Vial SUB-Q 5,000 unit Q8HR SEGUNDO Administration Vancomycin HCl 1 gm in 250 mls @ 167.007 mls/hr 05/17/22 22:00 05/22/22 09:32 Vancomycin/Ns 1 Gm/250 Ml IV 167 mls/hr Q12H SEGUNDO Administration Levofloxacin/Dextrose 500 mg in 100 mls @ 100 mls/hr 05/21/22 12:00 05/22/22 13:34 Levaquin 500mg/100ml IV 05/23/22 12:59 100 mls/hr Q24H SEGUNDO Administration Protocol Insulin Human Lispro 0 unit 05/05/22 06:00 05/22/22 14:12 Insulin Lispro 100 Unit/Ml SUB-Q Not Given Q8HR [facility] Protocol Magnesium Hydroxide 30 ml 04/02/22 23:53 Magnesium Hydroxide (Mom) Oral Liqd Udc PO Q4H PRN Constipation Metoprolol Tartrate 12.5 mg 05/03/22 13:00 05/22/22 14:12 Metoprolol Tartrate 25 Mg Tab FEEDTUBE Not Given Q6HR [facility] Ondansetron HCl 4 mg 04/02/22 23:53 Ondansetron 4 Mg/2 Ml Inj IV Q8H PRN Nausea And Vomiting Polyethylene Glycol 17 gm 05/18/22 15:00 05/22/22 11:45 Polyethylene Glycol 3350 17 Gm Powder FEEDTUBE Not Given QDAY SEGUNDO Quetiapine Fumarate 50 mg 05/13/22 11:00 05/22/22 09:34 Quetiapine 100 Mg Tab FEEDTUBE 50 mg BID SEGUNDO Administration Scopolamine 1 each 05/12/22 09:00 05/21/22 09:06 Scopolamine Transdermal Patch 72 Hr TD 1 each Q3D SEGUNDO Administration Senna 8.8 mg 05/18/22 22:00 05/21/22 22:56 Sennosides Oral Liqd 8.8 Mg/5 Ml Oral Liqd FEEDTUBE 8.8 mg QHS SEGUNDO Administration Simple Syrup 15 ml 05/20/22 15:35 Simple Syrup 15 Ml FEEDTUBE PRN PRN Hypoglycemia Simple Syrup 30 ml 05/20/22 15:35 Simple Syrup 15 Ml FEEDTUBE PRN PRN Hypoglycemia Sodium Bicarbonate 325 mg 05/20/22 15:35 Sodium Bicarbonate 325 Mg Tab FEEDTUBE PRN PRN For Clogged Feeding Tube Sodium Chloride 10 ml 04/03/22 10:00 05/22/22 13:35 Sodium Chloride 0.9% 10 Ml Flush Syringe IV 10 ml BID SEGUNDO Administration Sodium Chloride 10 ml 04/02/22 23:53 05/16/22 05:10 Sodium Chloride 0.9% 10 Ml Flush Syringe IV 10 ml PRN PRN Administration LINE FLUSH Nutrition/Malnutrition Assess - Dietary Evaluation Nutrition/Malnutrition Findings: Nutrition Notes Start: 04/04/22 13:13 Freq: Status: Active Protocol: Document 05/20/22 15:20 COLLEEN (Rec: 05/20/22 15:36 COLLEEN [id number]) Nutrition Notes Initial or Follow up Brief Note Current Diagnosis Coronary Artery Disease, Decubitus(Pressure Ulcer), Sepsis,Respiratory Failure, Malnutrition Other Pertinent Diagnosis HCAP, ALS, Broncopneumonia, NSTEMI, Cardiomyopathy, ... Current Diet TF-Osmolite 1.5 Inderjit @ 55 ml/hr (since D 05/19). Height 5 ft 4.8 in Weight 48.6 kg [place] Body Weight (kg) 61.27 BMI 17.9 Weight change and time frame No body weight change reported in 3 days. Weight Status Underweight Subjective/Other Information RD consult for routine F/U on TF tolerance/continuation. Pt resumed Osmolite yesterday, but order was not place in Chart, I will procede to place the order. Percent of energy/protein needs met: Prescribed TF-Osmolite 1.5 Inderjit @ 55 ml/hr provides for energy/protein needs (1,980 Kcal/83 g) during LOS, 102% Kcal; 100% AA. #1 Nutrition Diagnosis Inadequate oral intake Diagnosis Progress(for reassessment Continues documentation) Is patient on ventilator? Yes Is Patient Ambulatory and/or Out of Bed No REE-([facility]-confined to bed) 1498.320 Kcal/Kg value to use for calculation 40 Approximate Energy Requirements Using 1944 kcal/Kg Calculation Used for Recommendations Kcal/kg Additional Notes Protein: 1.5-2 g/Kg ABW; 73-98 g/day. Fluids: 1 ml/Kcal, or as per MD. Nutrition Intervention Nutrition Support: Continue TF-Osmolite 1.5 Inderjit @ 55 ml/hr. Flush: 150 ml water Q 4 hr, or as per MD. Kcal 1,980 Protein (gm) 83 Carbohydrates (gm) 269 Fat (gm) 65 Fluid (mL) 1,006 Fiber (gm) 0 % RDI: 102% Kcal; 100% AA. Goal #1 Provide at least 75% of energy /protein needs through Enteral Feeding during LOS. Follow-Up By: 05/27/22 Additional Comments Continue monitoring TF tolerance and BM. <NORM GRAYSON - Last Filed: 05/25/22 13:25> History Interval history: I saw and evaluated the patient. Discussed with the nurse practitioner and agree with their findings and plan as documented in this note. Hospitalist Physical - Constitutional Vitals: Temp Pulse Resp BP Pulse Ox 97.4 F L 102 H 13 108/67 96 05/25/22 12:00 05/25/22 12:00 05/25/22 12:00 05/25/22 12:00 05/25/22 12:00 HEART Score - HEART Score Troponin: Troponin T 0.031 ng/mL (0.00-0.029) H 04/08/22 17:47 Results - Labs CBC & Chem 7: 05/24/22 04:22 05/25/22 00:44 Labs: Laboratory Last Values WBC 10.9 K/mm3 (4.5-11.0) 05/24/22 04:22 RBC 2.89 M/mm3 (3.65-5.03) L 05/24/22 04:22 Hgb 7.9 gm/dl (11.8-15.2) L 05/24/22 04:22 Hct 24.9 % (35.5-45.6) L 05/24/22 04:22 MCV 86 fl (84-94) 05/24/22 04:22 MCH 28 pg (28-32) 05/24/22 04:22 MCHC 32 % (32-34) 05/24/22 04:22 RDW 17.0 % (13.2-15.2) H 05/24/22 04:22 Plt Count 339 K/mm3 (140-440) D 05/24/22 04:22 Lymph % (Auto) 8.1 % (13.4-35.0) L 05/09/22 15:15 Garza % (Auto) 4.9 % (0.0-7.3) 05/09/22 15:15 Eos % (Auto) 0.6 % (0.0-4.3) 05/09/22 15:15 Baso % (Auto) 0.3 % (0.0-1.8) 05/09/22 15:15 Lymph # (Auto) 0.9 K/mm3 (1.2-5.4) L 05/09/22 15:15 Garza # (Auto) 0.5 K/mm3 (0.0-0.8) 05/09/22 15:15 Eos # (Auto) 0.1 K/mm3 (0.0-0.4) 05/09/22 15:15 Baso # (Auto) 0.0 K/mm3 (0.0-0.1) 05/09/22 15:15 Add Manual Diff Complete 05/17/22 03:41 Total Counted 100 05/17/22 03:41 Seg Neutrophils % Manual Training Teacher 05/17/22 03:41 Seg Neuts % (Manual) 96.0 % (40.0-70.0) H 05/17/22 03:41 Band Neutrophils % 0 % 05/17/22 03:41 Lymphocytes % (Manual) 1.0 % (13.4-35.0) L 05/17/22 03:41 Reactive Lymphs % (Man) 0 % 05/17/22 03:41 Monocytes % (Manual) 3.0 % (0.0-7.3) 05/17/22 03:41 Eosinophils % (Manual) 0 % (0.0-4.3) 05/17/22 03:41 Basophils % (Manual) 0 % (0.0-1.8) 05/17/22 03:41 Metamyelocytes % 0 % 05/17/22 03:41 Myelocytes % 0 % 05/17/22 03:41 Promyelocytes % 0 % 05/17/22 03:41 Blast Cells % 0 % 05/17/22 03:41 Nucleated RBC % Not Reportable 05/17/22 03:41 Seg Neutrophils # 9.2 K/mm3 (1.8-7.7) H 05/09/22 15:15 Seg Neutrophils # Man 15.6 K/mm3 (1.8-7.7) H 05/17/22 03:41 Band Neutrophils # 0.0 K/mm3 05/17/22 03:41 Lymphocytes # (Manual) 0.2 K/mm3 (1.2-5.4) L 05/17/22 03:41 Abs React Lymphs (Man) 0.0 K/mm3 05/17/22 03:41 Monocytes # (Manual) 0.5 K/mm3 (0.0-0.8) 05/17/22 03:41 Eosinophils # (Manual) 0.0 K/mm3 (0.0-0.4) 05/17/22 03:41 Basophils # (Manual) 0.0 K/mm3 (0.0-0.1) 05/17/22 03:41 Metamyelocytes # 0.0 K/mm3 05/17/22 03:41 Myelocytes # 0.0 K/mm3 05/17/22 03:41 Promyelocytes # 0.0 K/mm3 05/17/22 03:41 Blast Cells # 0.0 K/mm3 05/17/22 03:41 WBC Morphology Not Reportable 05/17/22 03:41 Hypersegmented Neuts Not Reportable 05/17/22 03:41 Hyposegmented Neuts Not Reportable 05/17/22 03:41 Hypogranular Neuts Not Reportable 05/17/22 03:41 Smudge Cells Not Reportable 05/17/22 03:41 Toxic Granulation Not Reportable 05/17/22 03:41 Toxic Vacuolation Not Reportable 05/17/22 03:41 Dohle Bodies Not Reportable 05/17/22 03:41 Pelger-Huet Anomaly Not Reportable 05/17/22 03:41 Terry Rods Not Reportable 05/17/22 03:41 Platelet Estimate Consistent w auto 05/17/22 03:41 Clumped Platelets Not Reportable 05/17/22 03:41 Plt Clumps, EDTA Not Reportable 05/17/22 03:41 Large Platelets Not Reportable 05/17/22 03:41 Giant Platelets Not Reportable 05/17/22 03:41 Platelet Satelliting Not Reportable 05/17/22 03:41 Plt Morphology Comment Not Reportable 05/17/22 03:41 RBC Morphology Not Reportable 05/17/22 03:41 Dimorphic RBCs Not Reportable 05/17/22 03:41 Polychromasia Not Reportable 05/17/22 03:41 Hypochromasia Not Reportable 05/17/22 03:41 Poikilocytosis Not Reportable 05/17/22 03:41 Anisocytosis 1+ 05/17/22 03:41 Microcytosis Not Reportable 05/17/22 03:41 Macrocytosis Not Reportable 05/17/22 03:41 Spherocytes Not Reportable 05/17/22 03:41 Pappenheimer Bodies Not Reportable 05/17/22 03:41 Sickle Cells Not Reportable 05/17/22 03:41 Target Cells Not Reportable 05/17/22 03:41 Tear Drop Cells Not Reportable 05/17/22 03:41 Ovalocytes Not Reportable 05/17/22 03:41 Helmet Cells Not Reportable 05/17/22 03:41 [place] Bodies Not Reportable 05/17/22 03:41 [place] Rings Not Reportable 05/17/22 03:41 [place] Cells Not Reportable 05/17/22 03:41 Bite Cells Not Reportable 05/17/22 03:41 Crenated Cell Not Reportable 05/17/22 03:41 Elliptocytes Not Reportable 05/17/22 03:41 Acanthocytes (Spur) Not Reportable 05/17/22 03:41 Rouleaux Not Reportable 05/17/22 03:41 Hemoglobin C Crystals Not Reportable 05/17/22 03:41 Schistocytes Not Reportable 05/17/22 03:41 Malaria parasites Not Reportable 05/17/22 03:41 [place] Bodies Not Reportable 05/17/22 03:41 Hem Pathologist Commnt No 05/17/22 03:41 PT 13.6 Sec. (12.2-14.9) 04/13/22 04:30 INR 0.94 (0.87-1.13) 04/13/22 04:30 APTT 35.7 Sec. (24.2-36.6) 04/07/22 03:51 ABG pH 7.385 pH Units (7.350-7.450) 05/19/22 06:10 ABG pCO2 51.9 mm Hg 05/19/22 06:10 ABG pO2 70.5 mm Hg (80.0-90.0) L 05/19/22 06:10 ABG HCO3 30.3 mmol/L (20.0-26.0) H 05/19/22 06:10 ABG O2 Saturation 97.6 % (95.0-99.0) 05/19/22 06:10 ABG O2 Content 8.1 (0.0-44) 05/19/22 06:10 ABG Base Excess 4.9 mmol/L (-2.0-3.0) H 05/19/22 06:10 ABG Hemoglobin 5.9 gm/dl (14.0-18.0) L 05/19/22 06:10 ABG Carboxyhemoglobin 1.5 % (0.0-5.0) 05/19/22 06:10 ABG Methemoglobin 0.4 % (0.0-1.5) 05/19/22 06:10 Oxyhemoglobin 95.8 % (95.0-99.0) 05/19/22 06:10 FiO2 55 % 05/19/22 06:10 Sodium 139 mmol/L (137-145) 05/25/22 00:44 Potassium 4.6 mmol/L (3.6-5.0) 05/25/22 00:44 Chloride 94.8 mmol/L (98-107) L 05/25/22 00:44 Carbon Dioxide 35 mmol/L (22-30) H 05/25/22 00:44 Anion Gap 14 mmol/L 05/25/22 00:44 BUN 17 mg/dL (9-20) 05/25/22 00:44 Creatinine < 0.2 mg/dL (0.8-1.3) L 05/25/22 00:44 Estimated GFR > 60 ml/min 05/25/22 00:44 BUN/Creatinine Ratio 85 % 05/25/22 00:44 Glucose 146 mg/dL (75-100) H 05/25/22 00:44 POC Glucose 142 mg/dL (70-105) H 05/25/22 05:41 Lactic Acid 1.90 mmol/L (0.7-2.0) 04/02/22 19:39 Calcium 8.4 mg/dL (8.4-10.2) 05/25/22 00:44 Phosphorus 2.70 mg/dL (2.5-4.5) 05/22/22 05:49 Magnesium 1.80 mg/dL (1.7-2.3) 05/22/22 05:49 Total Bilirubin 0.80 mg/dL (0.1-1.2) 04/02/22 19:39 AST 15 units/L (5-40) 04/02/22 19:39 ALT 9 units/L (7-56) 04/02/22 19:39 Alkaline Phosphatase 43 units/L (35-129) 04/02/22 19:39 Total Creatine Kinase 46 units/L (55-170) L 04/08/22 17:47 CK-MB (CK-2) 2.6 ng/mL (0.0-4.0) 04/08/22 17:47 CK-MB (CK-2) Rel Index 5.6 (0-4) H 04/08/22 17:47 Troponin T 0.031 ng/mL (0.00-0.029) H 04/08/22 17:47 C-Reactive Protein 31.20 mg/dL (0.00-1.30) H 05/17/22 03:41 Total Protein 4.6 g/dL (6.3-8.2) L 04/02/22 19:39 Albumin 2.7 g/dL (3.9-5) L 04/02/22 19:39 Albumin/Globulin Ratio 1.4 % 04/02/22 19:39 Triglycerides 80 mg/dL (2-149) 04/02/22 19:39 Cholesterol 94 mg/dL (50-199) 04/02/22 19:39 LDL Cholesterol Direct 27 mg/dL (50-130) L 04/02/22 19:39 HDL Cholesterol 47 mg/dL (40-59) 04/02/22 19:39 Cholesterol/HDL Ratio 2.00 % 04/02/22 19:39 Procalcitonin 1.30 ng/mL (<0.15) 05/17/22 03:41 Urine Color Aracely (Yellow) 05/18/22 03:50 Urine Turbidity Clear (Clear) 05/18/22 03:50 Urine pH 5.0 (5.0-7.0) 05/18/22 03:50 Ur Specific Imogene 1.030 (1.003-1.030) 05/18/22 03:50 Urine Protein 30 mg/dl mg/dL (Negative) 05/18/22 03:50 Urine Glucose (UA) Neg mg/dL (Negative) 05/18/22 03:50 Urine Ketones Tr mg/dL (Negative) 05/18/22 03:50 Urine Blood Neg (Negative) 05/18/22 03:50 Urine Nitrite Neg (Negative) 05/18/22 03:50 Urine Bilirubin Neg (Negative) 05/18/22 03:50 Urine Urobilinogen < 2.0 mg/dL (<2.0) 05/18/22 03:50 Ur Leukocyte Esterase Neg (Negative) 05/18/22 03:50 Urine WBC (Auto) 1.0 /HPF (0.0-6.0) 05/18/22 03:50 Urine RBC (Auto) 1.0 /HPF (0.0-6.0) 05/18/22 03:50 U Epithel Cells (Auto) 2.0 /HPF (0-13.0) 05/18/22 03:50 Urine Bacteria (Auto) 1+ /HPF (Negative) 05/18/22 03:50 Hyaline Casts 1 /LPF 04/05/22 17:45 Urine Mucus Few /HPF 05/18/22 03:50 Nasal Screen MRSA (PCR) Negative (Negative) 04/05/22 12:37 Vancomycin Trough 16.2 ug/mL (5.0-20.0) 05/20/22 20:41 Coronavirus (PCR) Negative (Negative) 04/07/22 14:52 Blood Type O POSITIVE 05/18/22 13:56 Antibody Screen Negative 05/18/22 13:56 Crossmatch See Detail 05/18/22 13:56 Microbiology: Microbiology 05/19/22 Unknown Buttock Surgical Biopsy Culture - Final Escherichia Coli Pseudomonas Aeruginosa Perez/IV: Voiding Method Condom Catheter Active Medications - Current Medications Current Medications: Generic Name Dose Route Start Last Admin Trade Name Freq PRN Reason Stop Dose Admin Acetaminophen 650 mg 04/02/22 23:53 05/24/22 00:52 Acetaminophen 325 Mg Tab PO 650 mg Q6H PRN Administration Pain MILD(1-3)/Fever >100.5/FAITH Acetylcysteine 200 mg 05/04/22 20:00 05/25/22 08:18 Acetylcysteine 20% 200 Mg/1 Ml *For Inhalation Use* INHALATION 200 mg Q12HRT SEGUNDO Administration Albuterol 2.5 mg 05/05/22 20:00 05/25/22 08:17 Albuterol 2.5 Mg/3 Ml Nebu IH 2.5 mg Q12HRT SEGUNDO Administration Lipase/Protease/Amylase 1 each 05/20/22 15:35 Lipase 10,500/Protease 25,000/Amylase 43,750 (Units) Dr Patterson FEEDTUBE PRN PRN For Clogged Feeding Tube Baclofen 10 mg 05/19/22 20:00 05/25/22 09:26 Baclofen 10 Mg Tab PO 10 mg TID SEGUNDO Administration Bisacodyl 10 mg 04/07/22 09:44 04/12/22 10:06 Bisacodyl 10 Mg Rect Supp VA 10 mg QDAY PRN Administration Constipation Docusate Sodium 100 mg 05/18/22 22:00 05/24/22 21:10 Docusate Sodium 100 Mg/10 Ml Oral Liqd FEEDTUBE Not Given BID SEGUNDO Famotidine 20 mg 04/06/22 10:00 05/25/22 09:26 Famotidine 20 Mg Tab FEEDTUBE 20 mg BID SEGUNDO Administration Fentanyl 50 mcg 04/04/22 15:56 05/19/22 21:24 Fentanyl 100 Mcg/2 Ml Inj IV 50 mcg Q2HR PRN Administration For CPOT of greater than 3 Heparin Sodium (Porcine) 5,000 unit 04/03/22 06:00 05/25/22 05:45 Heparin 5,000 Unit/1 Ml Vial SUB-Q 5,000 unit Q8HR [facility] Administration Insulin Human Lispro 0 unit 05/05/22 06:00 05/25/22 05:43 Insulin Lispro 100 Unit/Ml SUB-Q Not Given Q8HR [facility] Protocol Magnesium Hydroxide 30 ml 04/02/22 23:53 Magnesium Hydroxide (Mom) Oral Liqd Udc PO Q4H PRN Constipation Metoprolol Tartrate 12.5 mg 05/03/22 13:00 05/25/22 05:45 Metoprolol Tartrate 25 Mg Tab FEEDTUBE 12.5 mg Q6HR SEGUNDO Administration Ondansetron HCl 4 mg 04/02/22 23:53 Ondansetron 4 Mg/2 Ml Inj IV Q8H PRN Nausea And Vomiting Polyethylene Glycol 17 gm 05/18/22 15:00 05/24/22 12:30 Polyethylene Glycol 3350 17 Gm Powder FEEDTUBE Not Given QDAY SEGUNDO Quetiapine Fumarate 50 mg 05/13/22 11:00 05/25/22 09:26 Quetiapine 100 Mg Tab FEEDTUBE 50 mg BID SEGUNDO Administration Scopolamine 1 each 05/12/22 09:00 05/24/22 09:35 Scopolamine Transdermal Patch 72 Hr TD 1 each Q3D SEGUNDO Administration Senna 8.8 mg 05/18/22 22:00 05/24/22 21:10 Sennosides Oral Liqd 8.8 Mg/5 Ml Oral Liqd FEEDTUBE Not Given QHS SEGUNDO Simple Syrup 15 ml 05/20/22 15:35 Simple Syrup 15 Ml FEEDTUBE PRN PRN Hypoglycemia Simple Syrup 30 ml 05/20/22 15:35 Simple Syrup 15 Ml FEEDTUBE PRN PRN Hypoglycemia Sodium Bicarbonate 325 mg 05/20/22 15:35 Sodium Bicarbonate 325 Mg Tab FEEDTUBE PRN PRN For Clogged Feeding Tube Sodium Chloride 10 ml 04/03/22 10:00 05/25/22 09:27 Sodium Chloride 0.9% 10 Ml Flush Syringe IV 10 ml BID SEGUNDO Administration Sodium Chloride 10 ml 04/02/22 23:53 05/16/22 05:10 Sodium Chloride 0.9% 10 Ml Flush Syringe IV 10 ml PRN PRN Administration LINE FLUSH Nutrition/Malnutrition Assess - Dietary Evaluation Nutrition/Malnutrition Findings: Nutrition Notes Start: 04/04/22 13:13 Freq: Status: Active Protocol: Document 05/20/22 15:20 COLLEEN (Rec: 05/20/22 15:36 COLLEEN [id number]) Nutrition Notes Initial or Follow up Brief Note Current Diagnosis Coronary Artery Disease, Decubitus(Pressure Ulcer), Sepsis,Respiratory Failure, Malnutrition Other Pertinent Diagnosis HCAP, ALS, Broncopneumonia, NSTEMI, Cardiomyopathy, ... Current Diet TF-Osmolite 1.5 Inderjit @ 55 ml/hr (since D 05/19). Height 5 ft 4.8 in Weight 48.6 kg [place] Body Weight (kg) 61.27 BMI 17.9 Weight change and time frame No body weight change reported in 3 days. Weight Status Underweight Subjective/Other Information RD consult for routine F/U on TF tolerance/continuation. Pt resumed Osmolite yesterday, but order was not place in Chart, I will procede to place the order. Percent of energy/protein needs met: Prescribed TF-Osmolite 1.5 Inderjit @ 55 ml/hr provides for energy/protein needs (1,980 Kcal/83 g) during LOS, 102% Kcal; 100% AA. #1 Nutrition Diagnosis Inadequate oral intake Diagnosis Progress(for reassessment Continues documentation) Is patient on ventilator? Yes Is Patient Ambulatory and/or Out of Bed No REE-([facility]-confined to bed) 1498.320 Kcal/Kg value to use for calculation 40 Approximate Energy Requirements Using 1944 kcal/Kg Calculation Used for Recommendations Kcal/kg Additional Notes Protein: 1.5-2 g/Kg ABW; 73-98 g/day. Fluids: 1 ml/Kcal, or as per MD. Nutrition Intervention Nutrition Support: Continue TF-Osmolite 1.5 Inderjit @ 55 ml/hr. Flush: 150 ml water Q 4 hr, or as per MD. Kcal 1,980 Protein (gm) 83 Carbohydrates (gm) 269 Fat (gm) 65 Fluid (mL) 1,006 Fiber (gm) 0 % RDI: 102% Kcal; 100% AA. Goal #1 Provide at least 75% of energy /protein needs through Enteral Feeding during LOS. Follow-Up By: 05/27/22 Additional Comments Continue monitoring TF tolerance and BM.
[2022-05-22] MEDS: ALBUTEROL 2.5 MG/3 ML NEBU IH SCH ×2 (20:28)
[2022-05-22] MEDS: ACETYLCYSTEINE 20% 200 MG/1 ML *FOR INHALATION USE INHALATION SCH (20:29)
[2022-05-22] MEDS: SENNOSIDES ORAL LIQD 8.8 MG/5 ML ORAL LIQD FEEDTUBE SCH (21:57)
[2022-05-23] MEDS: INSULIN LISPRO 100 UNIT/ML SUB-Q SCH ×4 (00:25→21:34)
[2022-05-23] MEDS: METOPROLOL TARTRATE 25 MG TAB FEEDTUBE SCH ×4 (00:28→17:48)
[2022-05-23] MEDS: VANCOMYCIN/NS 1 GM/250 ML 1 GM/250 ML BAG IV SCH (00:29)
[2022-05-23] MEDS: HEPARIN 5,000 UNIT/1 ML VIAL SUB-Q SCH ×3 (06:28→21:14)
[2022-05-23] MEDS ORDERED: EPINEPHrine RACEMIC 2.25% 0.5ML NEBU IH ONE ×2 (07:32→20:19)
[2022-05-23] MEDS: ALBUTEROL 2.5 MG/3 ML NEBU IH SCH ×2 (07:45→20:10)
[2022-05-23] MEDS: ACETYLCYSTEINE 20% 200 MG/1 ML *FOR INHALATION USE INHALATION SCH ×2 (07:45→20:10)
[2022-05-23] MEDS: BACLOFEN 10 MG TAB PO SCH ×3 (08:58→21:14)
[2022-05-23] MEDS: QUEtiapine 100 MG TAB FEEDTUBE SCH ×2 (09:00→21:13)
[2022-05-23] MEDS: FAMOTIDINE 20 MG TAB FEEDTUBE SCH ×2 (09:00→21:13)
[2022-05-23] MEDS: POLYETHYLENE GLYCOL 3350 17 GM POWDER FEEDTUBE SCH (09:01)
[2022-05-23] MEDS: DOCUSATE SODIUM 100 MG/10 ML ORAL LIQD FEEDTUBE SCH ×2 (09:01→21:15)
--- NOTE | 2022-05-23 10:15 | Progress Note ---
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, recently hospitalized at [facility] admitted for acute hypoxemic respiratory failure 2/2 pneumonia Neuro: h/o ALS -s/p precedex, fentanyl gtt -Reorientation as needed -Maintain sleep-wake cycle -As needed analgesia -CT head with no acute intracranial process -Per family patient is nonverbal at baseline but responsive -Seroquel BID Cardiac: Suspect ischemic coronary artery disease, ST, h/o cardiomyopathy -Cardiology consulted, appreciate recommendations -continue conservative management -Blood pressure monitoring per protocol -s/p Vasopressor support with Levophed -Echocardiogram shows ejection fraction of 40 to 45%, mild global hypokinesis of left ventricle -Nitro patch, BB Respiratory: Acute hypoxic respiratory failure -CCM consulted, appreciate recommendations -Intubated on 04/02 with a 7.50 ETT attempt at the lips -s/p trach on 04/14 and s/p bronch on 04/15 -A.m. vent settings: PRVC Rate 14, TV 500, Peep 12, FiO2 50% -See RT notes for titration -Scop patch -VAP bundle -SPO2 monitoring GI: Moderate protein calorie malnutrition -24 hours + 1845 mL -PPI -Peg 04/14 -NTR consulted for tube feedings -BR: Senokot/colace, MiraLAX : Metabolic Alkalosis -Record intake and output -Renally dose medications -Avoid nephrotoxic medications -Bladder scan q 8 hours -trend BMP ID: Sepsis, Acute Bronchopneumonia, HAP (Pseudomonas and Enterobacter tracheal aspirate), blood culture with bacillus species, Stage 4 sacra ulcer, Ecoli in wound culture -Infectious disease, WOCN, and General Surgery consulted, appreciate recommenda tions -Per infectious disease patient was recently admitted to [facility] but discharged home with home hospice and not giving antibiotics -04/15 Tracheal aspirate with Pseudomonas aeruginosa, Enterobacter aerogenes -04/02 blood culture with bacillus species, 04/05 blood culture NGTD -MRSA (-) -Abx per ID -s/p cefepime for 14 days -Meropenum de escalated to IV levofloxacin 500 mg daily x 3 more days -05/19 s/p wound debridement, mesh placement to wound bed and wound vac placement -wound culture with Ecoli -Dressing changes per RN -Monitor WBC and temperature curve Endo: NAD -Avoid hypoglycemia -SSI -Accu-Cheks q 6 Heme: Leukocytosis (resolved) -Heparin subq -Trend CBC -s/p 1 unit prbc -Transfuse hemoglobin less than 7 -SCDs to BLE while in bed Advance Care Planning - Disease education, care plan, diagnoses, and prognosis were discussed patient's , Carly Lopez, and patient daughter, Kaylee Warren, who translated for #[phone]. They reported that patient was following at [facility] for his ALS and during recent hospitalization at [facility] they were told nothing else can be offered to patient at this time and patient was discharge home with home hospice and PO morphine. First hospice visit was on , 04/01 however, patient became unresponsive 04/02 and they brought in to the hospital. - Goal of care and code status were also addressed at that time. Family wants to wait for a couple days to see how patient respond to current treatment before making a decision. All questions and concerns were addressed at this time. Patient family acknowledged understanding and agreement with care plan. -Patient remains a FULL CODE status. -04/05: Discussion at bedside with interpreting service with Dr. Valdivia and family state they would discuss next steps amongst themselves and let healthcare team know of decisions -04/06: extensive discussion with family ( and son) with Dr. Grayson regarding goals of care -04/08: Extensive discussion with with the use of men's swim coach line regarding goals of care; no decision made. Possible consult to surgery for trach/PEG early next week. -04/09: Discussion with and her sister with Dr. Grayson and then with Dr. Pineda-> Consulted surgery for trach/peg -04/30 Insurance Denied LTAC, plan for possible SNF placement now. Case manage ment to arrange -Family declined SNF -Awaiting discharge home with ventilator setup for home care due to need for ventilation secondary to trachestomy -DC will be prolonged for 1 week d/t need to remove wound mesh placed by surgery on 05/17 The high probability of a clinically significant, sudden or life threatening deterioration of the [resp] system(s) required my full and direct attention, intervention and personal management. The aggregate critical care time was [60] minutes. 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 Work-up in the emergency department revealed leukocytosis, elevated troponin and hyponatremia and CXR revealed moderate to large pleural effusion on the right. Patient was having agonal breathing in the emergency department and was intubated. Patient was admitted to the hospitalist service with consults to [facility], cardiology and infectious disease for further work-up. Hospital Course to Date: 04/03: Intubated and Sedated on versed gtt, RASS-5. CT head/brain noted with no acute intracranial abnormality. Plan to initiated precededx gtt and wean off versed for a RASS goal of 0 to -2. CT chect also reviewed, findings are most consistent with acute bronchopneumonia. Continue empiric IV Abx, vent adjustment per CCM. ID consulted. Continue to F/U on cultures. Titrate pressor for MAP above 65. Medical records requested from [facility]. 04/04: Remains stable on the vent, easily arousable on precedex gtt, not following commands. Plan for SAT/SBT today. PRN analgesia for CPOT greater than 3. Fevers improved, cultures and procal pending. Continue current IV abx, ID also consulted. Remains on low dose pressors, titrate pressors for a MAP above 65. 04/05: Long discussion with family with use of translation phone with [facility] regarding goals of care. Family to have meeting amongst themselves and informed care team of decisions. Fentanyl drip added for respiratory distress. Remains on Precedex drip. Antibiotics per ID. Given 2L NS bolus with levophed gtt 04/06: Family discussion with Dr. Grayson for goals of care. CXR shows possible mucus plug, continue CPT as FiO2 is being able to be weaned. Potassium repleted. Weaning fentnyl gtt. 04/07: Ultrasound guided thoracentesis today scheduled, inadequate amount of pleural effusion on so not completed. Patient was started on Levophed overnight which was weaned off this morning however had to be started twice a day. Remains on fentanyl and Precedex. Cardiology discontinued BB and ACEi in setting of hypotension. 04/08: COVID-19 PCR negative. Routine EEG ordered by cardiology which showed ST changes, cardiology aware. They will continue conservative treatment. Repeat troponins 0.030 which are less than admit of 0.048. Dr. Grayson had a long discussion with with the use of men's swim coach today at bedside and has not made a decision regarding goals of care. Possible consult to surgery for trach/PEG early next week. Continues to require Precedex and fentanyl drip for sedation. Carvedilol/lisinopril discontinued as patient is continuously on Levophed. 04/09: No acute events reported overnight, remains on fentanyl, Precedex and Levophed drips. Dr. Grayson and Dr. Pineda updated family at bedside extensively today. Consulted surgery for trach/PEG. COVID-19 PCR negative. 04/10: Patient noted to have desaturation episodes, FiO2 increased slightly to 35%. Will add Mucomyst. Remains on fentanyl and Precedex. Off of Levophed. Surgery consulted for trach/PEG. 04/11: FiO2 increased over night likely related to hypoxia, continues on fent gtt, weaning precedex gtt as he is also on Seroquel. Will d/w CCM re scheduled or prn oxycodone 04/12: Periods of hypoxia and tachycardia this am. Symptoms improved post deep suction and tracheal lavage, Repeat CXR noted with no significant change. Continue CPT and mucomyst. Plan for possible trach/PEG tomorrow by general surgery. 04/13: Remains stable on the vent. Patient is wake and tracking but does not follow simple commands. No report of hypoxia from overnight, continue CPT and mucomyst. Plan for track and PEG today by General Surgery. Plan for LTAC placement post procedure, case management to arrange. 04/14: VIRGILIO overnight, Trach and PEG postponed for today by general surgery. Plan for LTAC placement post procedure, case management to arrange. 04/15: S/p Trach and PEG. Up to 80% FiO2 this am, this am CXR noted suggesting possible mucus plug. D/W CCM plan for bronch today. Continue CPT and mucomyst. Plan of care thoroughly discussed with patient's and son (who translated for ) at the bedside. Per , cost coordinator had already discussed the risks and benefits of the procedure yesterday. She verbalized understanding and agreed with procedure and current care plan, consent signed. Okay to use PEG-tube for meds this am, resume TF once okay by general Surgery. Case management to arrange LTAC placement. 04/16: s/p Bronchocopy by CCM. FiO2 down to 60%, angela 10 this am. This am CXR with moderate improvement. Continue CPT and mucomyst, wean Fio2 as tolerated for SPO2 above 92%. Patient is tolerating TF, advance to goal as ordered. Possible LTAC placement, case management to arrange. 04/17: VIRGILIO overnight. remains stable on the vent, recent CXR and this am ABG noted. Continue CPT and mucomyst, wean Fio2 as tolerated. 04/18: Remains stable on the vent, Fio2 down to 55% and peep of 8 this am. Continue to wean as tolerated, CPT, and mucomyst. Dsiposition- LTAC placement, case management to arrange. 04/19: No acute events overnight. Continue current management. 04/20: No acute events overnight, continue current management 04/21: Patient had chest ultrasound which showed trace pleural effusions, chest x-ray improved after the addition of Mucomyst yesterday. FiO2 55-65%. No acute events overnight. more interactive today. 04/22: Seroquel changed to BID, FiO2 was increased to 60%. RT increased FIO2 to 100 d/t desaturation into the 80s but was able to wean down. CCM increased PEEP and decreased FiO2. 04/23: CCM increase PEEP, no acute events reported overnight. 04/24: Spoke to RT about decreasing FiO2 as tolerated. No acute events reported overnight. Continue supportive management. 04/25: Weaning as tolerated. no acute events overnight. RT to attempt CPAP again today 04/26: VIRGILIO overnight. Patient failed PSV trial again this morning. Continue supportive management and daily PST trial. 04/27: Patient failed PSV trial again this am due to episodes of apnea. Continue daily PSV trial as tolerated. Case management to arrange LTAC placement 04/28: Remains stable. Continue daily PSV trial as tolerated. Awaiting approval for LTAC 04/29: VIRGILIO overnight. Continue daily PSV trial. Awaiting approval for LTAC, case management to arrange. 04/30: Patient continue to fail PSV trial. Per case management patient was denied for LTAC, now possible SNF placement. Case managemen to arrange. Continue supportive measures and daily PSV trial as tolerated. 05/01: VIRGILIO overnight. Continue supportive measures and daily PSV trial as tolerated. Possible SNF placement. 05/02: Continue supportive measures and daily PSV trial as tolerated. Possible SNF placement, case management to arrange 05/03: no acute events overnight, CM arranging home vent setup. Family declined SNF. 05/04: RN/RT reports thin secretions, increase in FiO2 for decreased oxygen on ABG. No acute events overnight. 05/05: Family scheduled for teaching session today at 2pm. Increase in FiO2 overnight to 45%. Awaiting vent setup for home care for ventilation secondary to tracheostomy. 05/06: No acute events reported overnight, T-max 100.9. FiO2 45%. Awaiting discharge home with vent when teaching is completed 05/07: No acute events reported overnight, Awaiting discharge home with vent when teaching is completed 05/08: No acute events reported overnight, Awaiting discharge home with vent when teaching is completed 05/09: no acute events reported overnight. Ordered routine labs today. Family continuing with vent training. Anticipate discharge home this week possibly on Tuesday. 05/10: VIRGILIO overnight. Continue current supportive measures and family training at the bedside. Plan for discharge home tomorrow. 05/11: Discharge home today. drawer upfitter at 12pm 05/12: Discharge cancelled yesterday. Patient desated on home vent at max setting. Home vent is not sufficient to support patient's ventilation need. D/w [facility], Dr. Valdivia, who recommend SNF placement at this time. Patient's family notified at the bedside. All questions and concerns were address at this time. Further discussion on alternative placement to be determine and discussed with patient's family and case management today. The respiratory therapist from [facility] is schedule to come at 1400 today for further assessment. 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; WOCN consult placed 05-18 ID and gen surg consult 05/19: s/p sacral wound debridement with Dr. Jerome with wound vac and mesh placement. Per Dr. Jerome patient will need to either stay in the hospital 1 week to be taken back to the OR for removal of mesh on wound or may be discharged but will have to visit the wound clinic in 2 weeks. We will alert manager of case management. No acute events overnight. 05/20: Remains with leukocytosis, wound VAC in place. Discharge requested to be postponed by surgery. Remains on meropenem and vancomycin. No acute events reported overnight. 05/21: IV abx deescalated by ID, no acute events overnight. Continue current management. 05/22: No acute events reported overnight. Hyponatremia noted. Decreased free water flush. We will repeat labs in 48 hours. 05/23: no acute events overnight. Hospitalist Physical - Constitutional Vitals: Temp Pulse Resp BP Pulse Ox 100.5 F H 120 H 20 120/73 94 05/23/22 08:00 05/23/22 09:00 05/23/22 09:00 05/23/22 09:00 05/23/22 09:00 General appearance: Present: no acute distress, cachectic, other (trach/) - EENT Eyes: Present: PERRL, EOM intact ENT: hearing intact, dentition normal - Neck Neck: Present: normal ROM - Respiratory Respiratory effort: normal Respiratory: bilateral: CTA - Cardiovascular Rhythm: regular Heart Sounds: Present: S1 & S2. Absent: systolic murmur, diastolic murmur - Extremities Extremities: no ischemia, pulses intact, pulses symmetrical, No edema, normal temperature, normal color Peripheral Pulses: within normal limits - Abdominal General gastrointestinal: soft, non-tender, non-distended, normal bowel sounds - Integumentary Integumentary: Present: warm, dry - Psychiatric Psychiatric: cooperative - Neurologic Neurologic: other (gross movement to BUE, no movement to BLE) - Allied Health Allied health notes reviewed: nursing, RT HEART Score - HEART Score Troponin: Troponin T 0.031 ng/mL (0.00-0.029) H 04/08/22 17:47 Results - Labs CBC & Chem 7: 05/22/22 05:49 05/22/22 05:49 Labs: Laboratory Last Values WBC 9.4 K/mm3 (4.5-11.0) 05/22/22 05:49 RBC 3.05 M/mm3 (3.65-5.03) L 05/22/22 05:49 Hgb 8.6 gm/dl (11.8-15.2) L 05/22/22 05:49 Hct 26.2 % (35.5-45.6) L 05/22/22 05:49 MCV 86 fl (84-94) 05/22/22 05:49 MCH 28 pg (28-32) 05/22/22 05:49 MCHC 33 % (32-34) 05/22/22 05:49 RDW 16.8 % (13.2-15.2) H 05/22/22 05:49 Plt Count 164 K/mm3 (140-440) 05/22/22 05:49 Lymph % (Auto) 8.1 % (13.4-35.0) L 05/09/22 15:15 [place] % (Auto) 4.9 % (0.0-7.3) 05/09/22 15:15 Eos % (Auto) 0.6 % (0.0-4.3) 05/09/22 15:15 Baso % (Auto) 0.3 % (0.0-1.8) 05/09/22 15:15 Lymph # (Auto) 0.9 K/mm3 (1.2-5.4) L 05/09/22 15:15 [place] # (Auto) 0.5 K/mm3 (0.0-0.8) 05/09/22 15:15 Eos # (Auto) 0.1 K/mm3 (0.0-0.4) 05/09/22 15:15 Baso # (Auto) 0.0 K/mm3 (0.0-0.1) 05/09/22 15:15 Add Manual Diff Complete 05/17/22 03:41 Total Counted 100 05/17/22 03:41 Seg Neutrophils % Quality Management Nurse 05/17/22 03:41 Seg Neuts % (Manual) 96.0 % (40.0-70.0) H 05/17/22 03:41 Band Neutrophils % 0 % 05/17/22 03:41 Lymphocytes % (Manual) 1.0 % (13.4-35.0) L 05/17/22 03:41 Reactive Lymphs % (Man) 0 % 05/17/22 03:41 Monocytes % (Manual) 3.0 % (0.0-7.3) 05/17/22 03:41 Eosinophils % (Manual) 0 % (0.0-4.3) 05/17/22 03:41 Basophils % (Manual) 0 % (0.0-1.8) 05/17/22 03:41 Metamyelocytes % 0 % 05/17/22 03:41 Myelocytes % 0 % 05/17/22 03:41 Promyelocytes % 0 % 05/17/22 03:41 Blast Cells % 0 % 05/17/22 03:41 Nucleated RBC % Not Reportable 05/17/22 03:41 Seg Neutrophils # 9.2 K/mm3 (1.8-7.7) H 05/09/22 15:15 Seg Neutrophils # Man 15.6 K/mm3 (1.8-7.7) H 05/17/22 03:41 Band Neutrophils # 0.0 K/mm3 05/17/22 03:41 Lymphocytes # (Manual) 0.2 K/mm3 (1.2-5.4) L 05/17/22 03:41 Abs React Lymphs (Man) 0.0 K/mm3 05/17/22 03:41 Monocytes # (Manual) 0.5 K/mm3 (0.0-0.8) 05/17/22 03:41 Eosinophils # (Manual) 0.0 K/mm3 (0.0-0.4) 05/17/22 03:41 Basophils # (Manual) 0.0 K/mm3 (0.0-0.1) 05/17/22 03:41 Metamyelocytes # 0.0 K/mm3 05/17/22 03:41 Myelocytes # 0.0 K/mm3 05/17/22 03:41 Promyelocytes # 0.0 K/mm3 05/17/22 03:41 Blast Cells # 0.0 K/mm3 05/17/22 03:41 WBC Morphology Not Reportable 05/17/22 03:41 Hypersegmented Neuts Not Reportable 05/17/22 03:41 Hyposegmented Neuts Not Reportable 05/17/22 03:41 Hypogranular Neuts Not Reportable 05/17/22 03:41 Smudge Cells Not Reportable 05/17/22 03:41 Toxic Granulation Not Reportable 05/17/22 03:41 Toxic Vacuolation Not Reportable 05/17/22 03:41 Dohle Bodies Not Reportable 05/17/22 03:41 Pelger-Huet Anomaly Not Reportable 05/17/22 03:41 Terry Rods Not Reportable 05/17/22 03:41 Platelet Estimate Consistent w auto 05/17/22 03:41 Clumped Platelets Not Reportable 05/17/22 03:41 Plt Clumps, EDTA Not Reportable 05/17/22 03:41 Large Platelets Not Reportable 05/17/22 03:41 Giant Platelets Not Reportable 05/17/22 03:41 Platelet Satelliting Not Reportable 05/17/22 03:41 Plt Morphology Comment Not Reportable 05/17/22 03:41 RBC Morphology Not Reportable 05/17/22 03:41 Dimorphic RBCs Not Reportable 05/17/22 03:41 Polychromasia Not Reportable 05/17/22 03:41 Hypochromasia Not Reportable 05/17/22 03:41 Poikilocytosis Not Reportable 05/17/22 03:41 Anisocytosis 1+ 05/17/22 03:41 Microcytosis Not Reportable 05/17/22 03:41 Macrocytosis Not Reportable 05/17/22 03:41 Spherocytes Not Reportable 05/17/22 03:41 Pappenheimer Bodies Not Reportable 05/17/22 03:41 Sickle Cells Not Reportable 05/17/22 03:41 Target Cells Not Reportable 05/17/22 03:41 Tear Drop Cells Not Reportable 05/17/22 03:41 Ovalocytes Not Reportable 05/17/22 03:41 Helmet Cells Not Reportable 05/17/22 03:41 [place] Bodies Not Reportable 05/17/22 03:41 [place] Rings Not Reportable 05/17/22 03:41 [place] Cells Not Reportable 05/17/22 03:41 Bite Cells Not Reportable 05/17/22 03:41 Crenated Cell Not Reportable 05/17/22 03:41 Elliptocytes Not Reportable 05/17/22 03:41 Acanthocytes (Spur) Not Reportable 05/17/22 03:41 Rouleaux Not Reportable 05/17/22 03:41 Hemoglobin C Crystals Not Reportable 05/17/22 03:41 Schistocytes Not Reportable 05/17/22 03:41 Malaria parasites Not Reportable 05/17/22 03:41 [place] Bodies Not Reportable 05/17/22 03:41 Hem Pathologist Commnt No 05/17/22 03:41 PT 13.6 Sec. (12.2-14.9) 04/13/22 04:30 INR 0.94 (0.87-1.13) 04/13/22 04:30 APTT 35.7 Sec. (24.2-36.6) 04/07/22 03:51 ABG pH 7.385 pH Units (7.350-7.450) 05/19/22 06:10 ABG pCO2 51.9 mm Hg 05/19/22 06:10 ABG pO2 70.5 mm Hg (80.0-90.0) L 05/19/22 06:10 ABG HCO3 30.3 mmol/L (20.0-26.0) H 05/19/22 06:10 ABG O2 Saturation 97.6 % (95.0-99.0) 05/19/22 06:10 ABG O2 Content 8.1 (0.0-44) 05/19/22 06:10 ABG Base Excess 4.9 mmol/L (-2.0-3.0) H 05/19/22 06:10 ABG Hemoglobin 5.9 gm/dl (14.0-18.0) L 05/19/22 06:10 ABG Carboxyhemoglobin 1.5 % (0.0-5.0) 05/19/22 06:10 ABG Methemoglobin 0.4 % (0.0-1.5) 05/19/22 06:10 Oxyhemoglobin 95.8 % (95.0-99.0) 05/19/22 06:10 FiO2 55 % 05/19/22 06:10 Sodium 131 mmol/L (137-145) L 05/22/22 05:49 Potassium 4.7 mmol/L (3.6-5.0) 05/22/22 05:49 Chloride 93.3 mmol/L (98-107) L 05/22/22 05:49 Carbon Dioxide 32 mmol/L (22-30) H 05/22/22 05:49 Anion Gap 10 mmol/L 05/22/22 05:49 BUN 13 mg/dL (9-20) 05/22/22 05:49 Creatinine < 0.2 mg/dL (0.8-1.3) L 05/22/22 05:49 Estimated GFR > 60 ml/min 05/22/22 05:49 BUN/Creatinine Ratio 65 % 05/22/22 05:49 Glucose 148 mg/dL (75-100) H 05/22/22 05:49 POC Glucose 136 mg/dL (70-105) H 05/22/22 14:09 Lactic Acid 1.90 mmol/L (0.7-2.0) 04/02/22 19:39 Calcium 8.2 mg/dL (8.4-10.2) L 05/22/22 05:49 Phosphorus 2.70 mg/dL (2.5-4.5) 05/22/22 05:49 Magnesium 1.80 mg/dL (1.7-2.3) 05/22/22 05:49 Total Bilirubin 0.80 mg/dL (0.1-1.2) 04/02/22 19:39 AST 15 units/L (5-40) 04/02/22 19:39 ALT 9 units/L (7-56) 04/02/22 19:39 Alkaline Phosphatase 43 units/L (35-129) 04/02/22 19:39 Total Creatine Kinase 46 units/L (55-170) L 04/08/22 17:47 CK-MB (CK-2) 2.6 ng/mL (0.0-4.0) 04/08/22 17:47 CK-MB (CK-2) Rel Index 5.6 (0-4) H 04/08/22 17:47 Troponin T 0.031 ng/mL (0.00-0.029) H 04/08/22 17:47 C-Reactive Protein 31.20 mg/dL (0.00-1.30) H 05/17/22 03:41 Total Protein 4.6 g/dL (6.3-8.2) L 04/02/22 19:39 Albumin 2.7 g/dL (3.9-5) L 04/02/22 19:39 Albumin/Globulin Ratio 1.4 % 04/02/22 19:39 Triglycerides 80 mg/dL (2-149) 04/02/22 19:39 Cholesterol 94 mg/dL (50-199) 04/02/22 19:39 LDL Cholesterol Direct 27 mg/dL (50-130) L 04/02/22 19:39 HDL Cholesterol 47 mg/dL (40-59) 04/02/22 19:39 Cholesterol/HDL Ratio 2.00 % 04/02/22 19:39 Procalcitonin 1.30 ng/mL (<0.15) 05/17/22 03:41 Urine Color [place] (Yellow) 05/18/22 03:50 Urine Turbidity Clear (Clear) 05/18/22 03:50 Urine pH 5.0 (5.0-7.0) 05/18/22 03:50 Ur Specific [place] 1.030 (1.003-1.030) 05/18/22 03:50 Urine Protein 30 mg/dl mg/dL (Negative) 05/18/22 03:50 Urine Glucose (UA) Neg mg/dL (Negative) 05/18/22 03:50 Urine Ketones Tr mg/dL (Negative) 05/18/22 03:50 Urine Blood Neg (Negative) 05/18/22 03:50 Urine Nitrite Neg (Negative) 05/18/22 03:50 Urine Bilirubin Neg (Negative) 05/18/22 03:50 Urine Urobilinogen < 2.0 mg/dL (<2.0) 05/18/22 03:50 Ur Leukocyte Esterase Neg (Negative) 05/18/22 03:50 Urine WBC (Auto) 1.0 /HPF (0.0-6.0) 05/18/22 03:50 Urine RBC (Auto) 1.0 /HPF (0.0-6.0) 05/18/22 03:50 U Epithel Cells (Auto) 2.0 /HPF (0-13.0) 05/18/22 03:50 Urine Bacteria (Auto) 1+ /HPF (Negative) 05/18/22 03:50 Hyaline Casts 1 /LPF 04/05/22 17:45 Urine Mucus Few /HPF 05/18/22 03:50 Nasal Screen MRSA (PCR) Negative (Negative) 04/05/22 12:37 Vancomycin Trough 16.2 ug/mL (5.0-20.0) 05/20/22 20:41 Coronavirus (PCR) Negative (Negative) 04/07/22 14:52 Blood Type O POSITIVE 05/18/22 13:56 Antibody Screen Negative 05/18/22 13:56 Crossmatch See Detail 05/18/22 13:56 Microbiology: Microbiology 05/17/22 17:04 Peripheral/Venous Blood Culture - Final NO GROWTH AFTER 5 DAYS 05/17/22 17:04 Peripheral/Venous Blood Culture - Final NO GROWTH AFTER 5 DAYS 05/19/22 Unknown Buttock Surgical Biopsy Culture - Preliminary Escherichia Coli Perez/IV: Voiding Method Condom Catheter Active Medications - Current Medications Current Medications: Generic Name Dose Route Start Last Admin Trade Name Freq PRN Reason Stop Dose Admin Acetaminophen 650 mg 04/02/22 23:53 05/18/22 09:01 Acetaminophen 325 Mg Tab PO 650 mg Q6H PRN Administration Pain MILD(1-3)/Fever >100.5/FAITH Acetylcysteine 200 mg 05/04/22 20:00 05/23/22 07:45 Acetylcysteine 20% 200 Mg/1 Ml *For Inhalation Use* INHALATION 200 mg Q12HRT SEGUNDO Administration Albuterol 2.5 mg 05/05/22 20:00 05/23/22 07:45 Albuterol 2.5 Mg/3 Ml Nebu IH 2.5 mg Q12HRT SEGUNDO Administration Lipase/Protease/Amylase 1 each 05/20/22 15:35 Lipase 10,500/Protease 25,000/Amylase 43,750 (Units) Dr Patterson FEEDTUBE PRN PRN For Clogged Feeding Tube Baclofen 10 mg 05/19/22 20:00 05/23/22 08:58 Baclofen 10 Mg Tab PO 10 mg TID SEGUNDO Administration Bisacodyl 10 mg 04/07/22 09:44 04/12/22 10:06 Bisacodyl 10 Mg Rect Supp CO 10 mg QDAY PRN Administration Constipation Docusate Sodium 100 mg 05/18/22 22:00 05/23/22 09:01 Docusate Sodium 100 Mg/10 Ml Oral Liqd FEEDTUBE Not Given BID SEGUNDO Famotidine 20 mg 04/06/22 10:00 05/23/22 09:00 Famotidine 20 Mg Tab FEEDTUBE 20 mg BID SEGUNDO Administration Fentanyl 50 mcg 04/04/22 15:56 05/19/22 21:24 Fentanyl 100 Mcg/2 Ml Inj IV 50 mcg Q2HR PRN Administration For CPOT of greater than 3 Heparin Sodium (Porcine) 5,000 unit 04/03/22 06:00 05/23/22 06:28 Heparin 5,000 Unit/1 Ml Vial SUB-Q 5,000 unit Q8HR SEGUNDO Administration Levofloxacin/Dextrose 500 mg in 100 mls @ 100 mls/hr 05/21/22 12:00 05/22/22 13:34 Levaquin 500mg/100ml IV 05/23/22 12:59 100 mls/hr Q24H SEGUNDO Administration Protocol Insulin Human Lispro 0 unit 05/05/22 06:00 05/23/22 08:00 Insulin Lispro 100 Unit/Ml SUB-Q Not Given Q8HR SEGUNDO Protocol Magnesium Hydroxide 30 ml 04/02/22 23:53 Magnesium Hydroxide (Mom) Oral Liqd Udc PO Q4H PRN Constipation Metoprolol Tartrate 12.5 mg 05/03/22 13:00 05/23/22 06:30 Metoprolol Tartrate 25 Mg Tab FEEDTUBE 12.5 mg Q6HR SEGUNDO Administration Ondansetron HCl 4 mg 04/02/22 23:53 Ondansetron 4 Mg/2 Ml Inj IV Q8H PRN Nausea And Vomiting Polyethylene Glycol 17 gm 05/18/22 15:00 05/23/22 09:01 Polyethylene Glycol 3350 17 Gm Powder FEEDTUBE 17 gm QDAY SEGUNDO Administration Quetiapine Fumarate 50 mg 05/13/22 11:00 05/23/22 09:00 Quetiapine 100 Mg Tab FEEDTUBE 50 mg BID SEGUNDO Administration Scopolamine 1 each 05/12/22 09:00 05/21/22 09:06 Scopolamine Transdermal Patch 72 Hr TD 1 each Q3D SEGUNDO Administration Senna 8.8 mg 05/18/22 22:00 05/22/22 21:57 Sennosides Oral Liqd 8.8 Mg/5 Ml Oral Liqd FEEDTUBE 8.8 mg QHS SEGUNDO Administration Simple Syrup 15 ml 05/20/22 15:35 Simple Syrup 15 Ml FEEDTUBE PRN PRN Hypoglycemia Simple Syrup 30 ml 05/20/22 15:35 Simple Syrup 15 Ml FEEDTUBE PRN PRN Hypoglycemia Sodium Bicarbonate 325 mg 05/20/22 15:35 Sodium Bicarbonate 325 Mg Tab FEEDTUBE PRN PRN For Clogged Feeding Tube Sodium Chloride 10 ml 04/03/22 10:00 05/23/22 09:02 Sodium Chloride 0.9% 10 Ml Flush Syringe IV 10 ml BID SEGUNDO Administration Sodium Chloride 10 ml 04/02/22 23:53 05/16/22 05:10 Sodium Chloride 0.9% 10 Ml Flush Syringe IV 10 ml PRN PRN Administration LINE FLUSH Nutrition/Malnutrition Assess - Dietary Evaluation Nutrition/Malnutrition Findings: Nutrition Notes Start: 04/04/22 1 3:13 Freq: Status: Active Protocol: Document 05/20/22 15:20 COLLEEN (Rec: 05/20/22 15:36 COLLEEN [id number]) Nutrition Notes Initial or Follow up Brief Note Current Diagnosis Coronary Artery Disease, Decubitus(Pressure Ulcer), Sepsis,Respiratory Failure, Malnutrition Other Pertinent Diagnosis HCAP, ALS, Broncopneumonia, NSTEMI, Cardiomyopathy, ... Current Diet TF-Osmolite 1.5 Inderjit @ 55 ml/hr (since D 05/19). Height 5 ft 4.8 in Weight 48.6 kg [place] Body Weight (kg) 61.27 BMI 17.9 Weight change and time frame No body weight change reported in 3 days. Weight Status Underweight Subjective/Other Information RD consult for routine F/U on TF tolerance/continuation. Pt resumed Osmolite yesterday, but order was not place in Chart, I will procede to place the order. Percent of energy/protein needs met: Prescribed TF-Osmolite 1.5 Inderjit @ 55 ml/hr provides for energy/protein needs (1,980 Kcal/83 g) during LOS, 102% Kcal; 100% AA. #1 Nutrition Diagnosis Inadequate oral intake Diagnosis Progress(for reassessment Continues documentation) Is patient on ventilator? Yes Is Patient Ambulatory and/or Out of Bed No REE-([facility]-confined to bed) 1498.320 Kcal/Kg value to use for calculation 40 Approximate Energy Requirements Using 1944 kcal/Kg Calculation Used for Recommendations Kcal/kg Additional Notes Protein: 1.5-2 g/Kg ABW; 73-98 g/day. Fluids: 1 ml/Kcal, or as per MD. Nutrition Intervention Nutrition Support: Continue TF-Osmolite 1.5 Inderjit @ 55 ml/hr. Flush: 150 ml water Q 4 hr, or as per MD. Kcal 1,980 Protein (gm) 83 Carbohydrates (gm) 269 Fat (gm) 65 Fluid (mL) 1,006 Fiber (gm) 0 % RDI: 102% Kcal; 100% AA. Goal #1 Provide at least 75% of energy /protein needs through Enteral Feeding during LOS. Follow-Up By: 05/27/22 Additional Comments Continue monitoring TF tolerance and BM. <NORM GRAYSON - Last Filed: 05/23/22 17:55> History Interval history: I saw and evaluated the patient. Discussed with the nurse practitioner and agree with their findings and plan as documented in this note. Ecoli ESBL speciated in surgical culture, sensitives pending.. Patient was treated with Merrem x 3 days. Will discuss with ID if this was sufficient duration for therapy. Hospitalist Physical - Constitutional Vitals: Temp Pulse Resp BP Pulse Ox 98.4 F 118 H 33 H 126/83 94 05/23/22 16:25 05/23/22 17:48 05/23/22 17:00 05/23/22 17:48 05/23/22 17:00 HEART Score - HEART Score Troponin: Troponin T 0.031 ng/mL (0.00-0.029) H 04/08/22 17:47 Results - Labs CBC & Chem 7: 05/22/22 05:49 05/22/22 05:49 Labs: Laboratory Last Values WBC 9.4 K/mm3 (4.5-11.0) 05/22/22 05:49 RBC 3.05 M/mm3 (3.65-5.03) L 05/22/22 05:49 Hgb 8.6 gm/dl (11.8-15.2) L 05/22/22 05:49 Hct 26.2 % (35.5-45.6) L 05/22/22 05:49 MCV 86 fl (84-94) 05/22/22 05:49 MCH 28 pg (28-32) 05/22/22 05:49 MCHC 33 % (32-34) 05/22/22 05:49 RDW 16.8 % (13.2-15.2) H 05/22/22 05:49 Plt Count 164 K/mm3 (140-440) 05/22/22 05:49 Lymph % (Auto) 8.1 % (13.4-35.0) L 05/09/22 15:15 [place] % (Auto) 4.9 % (0.0-7.3) 05/09/22 15:15 Eos % (Auto) 0.6 % (0.0-4.3) 05/09/22 15:15 Baso % (Auto) 0.3 % (0.0-1.8) 05/09/22 15:15 Lymph # (Auto) 0.9 K/mm3 (1.2-5.4) L 05/09/22 15:15 [place] # (Auto) 0.5 K/mm3 (0.0-0.8) 05/09/22 15:15 Eos # (Auto) 0.1 K/mm3 (0.0-0.4) 05/09/22 15:15 Baso # (Auto) 0.0 K/mm3 (0.0-0.1) 05/09/22 15:15 Add Manual Diff Complete 05/17/22 03:41 Total Counted 100 05/17/22 03:41 Seg Neutrophils % Quality Management Nurse 05/17/22 03:41 Seg Neuts % (Manual) 96.0 % (40.0-70.0) H 05/17/22 03:41 Band Neutrophils % 0 % 05/17/22 03:41 Lymphocytes % (Manual) 1.0 % (13.4-35.0) L 05/17/22 03:41 Reactive Lymphs % (Man) 0 % 05/17/22 03:41 Monocytes % (Manual) 3.0 % (0.0-7.3) 05/17/22 03:41 Eosinophils % (Manual) 0 % (0.0-4.3) 05/17/22 03:41 Basophils % (Manual) 0 % (0.0-1.8) 05/17/22 03:41 Metamyelocytes % 0 % 05/17/22 03:41 Myelocytes % 0 % 05/17/22 03:41 Promyelocytes % 0 % 05/17/22 03:41 Blast Cells % 0 % 05/17/22 03:41 Nucleated RBC % Not Reportable 05/17/22 03:41 Seg Neutrophils # 9.2 K/mm3 (1.8-7.7) H 05/09/22 15:15 Seg Neutrophils # Man 15.6 K/mm3 (1.8-7.7) H 05/17/22 03:41 Band Neutrophils # 0.0 K/mm3 05/17/22 03:41 Lymphocytes # (Manual) 0.2 K/mm3 (1.2-5.4) L 05/17/22 03:41 Abs React Lymphs (Man) 0.0 K/mm3 05/17/22 03:41 Monocytes # (Manual) 0.5 K/mm3 (0.0-0.8) 05/17/22 03:41 Eosinophils # (Manual) 0.0 K/mm3 (0.0-0.4) 05/17/22 03:41 Basophils # (Manual) 0.0 K/mm3 (0.0-0.1) 05/17/22 03:41 Metamyelocytes # 0.0 K/mm3 05/17/22 03:41 Myelocytes # 0.0 K/mm3 05/17/22 03:41 Promyelocytes # 0.0 K/mm3 05/17/22 03:41 Blast Cells # 0.0 K/mm3 05/17/22 03:41 WBC Morphology Not Reportable 05/17/22 03:41 Hypersegmented Neuts Not Reportable 05/17/22 03:41 Hyposegmented Neuts Not Reportable 05/17/22 03:41 Hypogranular Neuts Not Reportable 05/17/22 03:41 Smudge Cells Not Reportable 05/17/22 03:41 Toxic Granulation Not Reportable 05/17/22 03:41 Toxic Vacuolation Not Reportable 05/17/22 03:41 Dohle Bodies Not Reportable 05/17/22 03:41 Pelger-Huet Anomaly Not Reportable 05/17/22 03:41 Terry Rods Not Reportable 05/17/22 03:41 Platelet Estimate Consistent w auto 05/17/22 03:41 Clumped Platelets Not Reportable 05/17/22 03:41 Plt Clumps, EDTA Not Reportable 05/17/22 03:41 Large Platelets Not Reportable 05/17/22 03:41 Giant Platelets Not Reportable 05/17/22 03:41 Platelet Satelliting Not Reportable 05/17/22 03:41 Plt Morphology Comment Not Reportable 05/17/22 03:41 RBC Morphology Not Reportable 05/17/22 03:41 Dimorphic RBCs Not Reportable 05/17/22 03:41 Polychromasia Not Reportable 05/17/22 03:41 Hypochromasia Not Reportable 05/17/22 03:41 Poikilocytosis Not Reportable 05/17/22 03:41 Anisocytosis 1+ 05/17/22 03:41 Microcytosis Not Reportable 05/17/22 03:41 Macrocytosis Not Reportable 05/17/22 03:41 Spherocytes Not Reportable 05/17/22 03:41 Pappenheimer Bodies Not Reportable 05/17/22 03:41 Sickle Cells Not Reportable 05/17/22 03:41 Target Cells Not Reportable 05/17/22 03:41 Tear Drop Cells Not Reportable 05/17/22 03:41 Ovalocytes Not Reportable 05/17/22 03:41 Helmet Cells Not Reportable 05/17/22 03:41 [place] Bodies Not Reportable 05/17/22 03:41 [place] Rings Not Reportable 05/17/22 03:41 [place] Cells Not Reportable 05/17/22 03:41 Bite Cells Not Reportable 05/17/22 03:41 Crenated Cell Not Reportable 05/17/22 03:41 Elliptocytes Not Reportable 05/17/22 03:41 Acanthocytes (Spur) Not Reportable 05/17/22 03:41 Rouleaux Not Reportable 05/17/22 03:41 Hemoglobin C Crystals Not Reportable 05/17/22 03:41 Schistocytes Not Reportable 05/17/22 03:41 Malaria parasites Not Reportable 05/17/22 03:41 [place] Bodies Not Reportable 05/17/22 03:41 Hem Pathologist Commnt No 05/17/22 03:41 PT 13.6 Sec. (12.2-14.9) 04/13/22 04:30 INR 0.94 (0.87-1.13) 04/13/22 04:30 APTT 35.7 Sec. (24.2-36.6) 04/07/22 03:51 ABG pH 7.385 pH Units (7.350-7.450) 05/19/22 06:10 ABG pCO2 51.9 mm Hg 05/19/22 06:10 ABG pO2 70.5 mm Hg (80.0-90.0) L 05/19/22 06:10 ABG HCO3 30.3 mmol/L (20.0-26.0) H 05/19/22 06:10 ABG O2 Saturation 97.6 % (95.0-99.0) 05/19/22 06:10 ABG O2 Content 8.1 (0.0-44) 05/19/22 06:10 ABG Base Excess 4.9 mmol/L (-2.0-3.0) H 05/19/22 06:10 ABG Hemoglobin 5.9 gm/dl (14.0-18.0) L 05/19/22 06:10 ABG Carboxyhemoglobin 1.5 % (0.0-5.0) 05/19/22 06:10 ABG Methemoglobin 0.4 % (0.0-1.5) 05/19/22 06:10 Oxyhemoglobin 95.8 % (95.0-99.0) 05/19/22 06:10 FiO2 55 % 05/19/22 06:10 Sodium 131 mmol/L (137-145) L 05/22/22 05:49 Potassium 4.7 mmol/L (3.6-5.0) 05/22/22 05:49 Chloride 93.3 mmol/L (98-107) L 05/22/22 05:49 Carbon Dioxide 32 mmol/L (22-30) H 05/22/22 05:49 Anion Gap 10 mmol/L 05/22/22 05:49 BUN 13 mg/dL (9-20) 05/22/22 05:49 Creatinine < 0.2 mg/dL (0.8-1.3) L 05/22/22 05:49 Estimated GFR > 60 ml/min 05/22/22 05:49 BUN/Creatinine Ratio 65 % 05/22/22 05:49 Glucose 148 mg/dL (75-100) H 05/22/22 05:49 POC Glucose 135 mg/dL (70-105) H 05/23/22 14:13 Lactic Acid 1.90 mmol/L (0.7-2.0) 04/02/22 19:39 Calcium 8.2 mg/dL (8.4-10.2) L 05/22/22 05:49 Phosphorus 2.70 mg/dL (2.5-4.5) 05/22/22 05:49 Magnesium 1.80 mg/dL (1.7-2.3) 05/22/22 05:49 Total Bilirubin 0.80 mg/dL (0.1-1.2) 04/02/22 19:39 AST 15 units/L (5-40) 04/02/22 19:39 ALT 9 units/L (7-56) 04/02/22 19:39 Alkaline Phosphatase 43 units/L (35-129) 04/02/22 19:39 Total Creatine Kinase 46 units/L (55-170) L 04/08/22 17:47 CK-MB (CK-2) 2.6 ng/mL (0.0-4.0) 04/08/22 17:47 CK-MB (CK-2) Rel Index 5.6 (0-4) H 04/08/22 17:47 Troponin T 0.031 ng/mL (0.00-0.029) H 04/08/22 17:47 C-Reactive Protein 31.20 mg/dL (0.00-1.30) H 05/17/22 03:41 Total Protein 4.6 g/dL (6.3-8.2) L 04/02/22 19:39 Albumin 2.7 g/dL (3.9-5) L 04/02/22 19:39 Albumin/Globulin Ratio 1.4 % 04/02/22 19:39 Triglycerides 80 mg/dL (2-149) 04/02/22 19:39 Cholesterol 94 mg/dL (50-199) 04/02/22 19:39 LDL Cholesterol Direct 27 mg/dL (50-130) L 04/02/22 19:39 HDL Cholesterol 47 mg/dL (40-59) 04/02/22 19:39 Cholesterol/HDL Ratio 2.00 % 04/02/22 19:39 Procalcitonin 1.30 ng/mL (<0.15) 05/17/22 03:41 Urine Color [place] (Yellow) 05/18/22 03:50 Urine Turbidity Clear (Clear) 05/18/22 03:50 Urine pH 5.0 (5.0-7.0) 05/18/22 03:50 Ur Specific [place] 1.030 (1.003-1.030) 05/18/22 03:50 Urine Protein 30 mg/dl mg/dL (Negative) 05/18/22 03:50 Urine Glucose (UA) Neg mg/dL (Negative) 05/18/22 03:50 Urine Ketones Tr mg/dL (Negative) 05/18/22 03:50 Urine Blood Neg (Negative) 05/18/22 03:50 Urine Nitrite Neg (Negative) 05/18/22 03:50 Urine Bilirubin Neg (Negative) 05/18/22 03:50 Urine Urobilinogen < 2.0 mg/dL (<2.0) 05/18/22 03:50 Ur Leukocyte Esterase Neg (Negative) 05/18/22 03:50 Urine WBC (Auto) 1.0 /HPF (0.0-6.0) 05/18/22 03:50 Urine RBC (Auto) 1.0 /HPF (0.0-6.0) 05/18/22 03:50 U Epithel Cells (Auto) 2.0 /HPF (0-13.0) 05/18/22 03:50 Urine Bacteria (Auto) 1+ /HPF (Negative) 05/18/22 03:50 Hyaline Casts 1 /LPF 04/05/22 17:45 Urine Mucus Few /HPF 05/18/22 03:50 Nasal Screen MRSA (PCR) Negative (Negative) 04/05/22 12:37 Vancomycin Trough 16.2 ug/mL (5.0-20.0) 05/20/22 20:41 Coronavirus (PCR) Negative (Negative) 04/07/22 14:52 Blood Type O POSITIVE 05/18/22 13:56 Antibody Screen Negative 05/18/22 13:56 Crossmatch See Detail 05/18/22 13:56 Microbiology: Microbiology 05/19/22 Unknown Buttock Surgical Biopsy Culture - Preliminary Escherichia Coli Gram Negative Deejay 05/19/22 Unknown Buttock Surgical Culture - Final Escherichia Coli Escherichia Coli#2 04/02/22 19:39 Peripheral/Venous Blood Culture - Final Bacillus Species 05/17/22 17:04 Peripheral/Venous Blood Culture - Final NO GROWTH AFTER 5 DAYS 05/17/22 17:04 Peripheral/Venous Blood Culture - Final NO GROWTH AFTER 5 DAYS Perez/IV: Voiding Method Condom Catheter Active Medications - Current Medications Current Medications: Generic Name Dose Route Start Last Admin Trade Name Freq PRN Reason Stop Dose Admin Acetaminophen 650 mg 04/02/22 23:53 05/18/22 09:01 Acetaminophen 325 Mg Tab PO 650 mg Q6H PRN Administration Pain MILD(1-3)/Fever >100.5/FAITH Acetylcysteine 200 mg 05/04/22 20:00 05/23/22 07:45 Acetylcysteine 20% 200 Mg/1 Ml *For Inhalation Use* INHALATION 200 mg Q12HRT SEGUNDO Administration Albuterol 2.5 mg 05/05/22 20:00 05/23/22 07:45 Albuterol 2.5 Mg/3 Ml Nebu IH 2.5 mg Q12HRT SEGUNDO Administration Lipase/Protease/Amylase 1 each 05/20/22 15:35 Lipase 10,500/Protease 25,000/Amylase 43,750 (Units) Dr [place] FEEDTUBE PRN PRN For Clogged Feeding Tube Baclofen 10 mg 05/19/22 20:00 05/23/22 14:22 Baclofen 10 Mg Tab PO 10 mg TID SEGUNDO Administration Bisacodyl 10 mg 04/07/22 09:44 04/12/22 10:06 Bisacodyl 10 Mg Rect Supp CO 10 mg QDAY PRN Administration Constipation Docusate Sodium 100 mg 05/18/22 22:00 05/23/22 09:01 Docusate Sodium 100 Mg/10 Ml Oral Liqd FEEDTUBE Not Given BID SEGUNDO Famotidine 20 mg 04/06/22 10:00 05/23/22 09:00 Famotidine 20 Mg Tab FEEDTUBE 20 mg BID SEGUNDO Administration Fentanyl 50 mcg 04/04/22 15:56 05/19/22 21:24 Fentanyl 100 Mcg/2 Ml Inj IV 50 mcg Q2HR PRN Administration For CPOT of greater than 3 Heparin Sodium (Porcine) 5,000 unit 04/03/22 06:00 05/23/22 14:22 Heparin 5,000 Unit/1 Ml Vial SUB-Q 5,000 unit Q8HR SEGUNDO Administration Insulin Human Lispro 0 unit 05/05/22 06:00 05/23/22 14:22 Insulin Lispro 100 Unit/Ml SUB-Q Not Given Q8HR [facility] Protocol Magnesium Hydroxide 30 ml 04/02/22 23:53 Magnesium Hydroxide (Mom) Oral Liqd Udc PO Q4H PRN Constipation Metoprolol Tartrate 12.5 mg 05/03/22 13:00 05/23/22 17:48 Metoprolol Tartrate 25 Mg Tab FEEDTUBE 12.5 mg Q6HR SEGUNDO Administration Ondansetron HCl 4 mg 04/02/22 23:53 Ondansetron 4 Mg/2 Ml Inj IV Q8H PRN Nausea And Vomiting Polyethylene Glycol 17 gm 05/18/22 15:00 05/23/22 09:01 Polyethylene Glycol 3350 17 Gm Powder FEEDTUBE 17 gm QDAY SEGUNDO Administration Quetiapine Fumarate 50 mg 05/13/22 11:00 05/23/22 09:00 Quetiapine 100 Mg Tab FEEDTUBE 50 mg BID SEGUNDO Administration Scopolamine 1 each 05/12/22 09:00 05/21/22 09:06 Scopolamine Transdermal Patch 72 Hr TD 1 each Q3D SEGUNDO Administration Senna 8.8 mg 05/18/22 22:00 05/22/22 21:57 Sennosides Oral Liqd 8.8 Mg/5 Ml Oral Liqd FEEDTUBE 8.8 mg QHS SEGUNDO Administration Simple Syrup 15 ml 05/20/22 15:35 Simple Syrup 15 Ml FEEDTUBE PRN PRN Hypoglycemia Simple Syrup 30 ml 05/20/22 15:35 Simple Syrup 15 Ml FEEDTUBE PRN PRN Hypoglycemia Sodium Bicarbonate 325 mg 05/20/22 15:35 Sodium Bicarbonate 325 Mg Tab FEEDTUBE PRN PRN For Clogged Feeding Tube Sodium Chloride 10 ml 04/03/22 10:00 05/23/22 09:02 Sodium Chloride 0.9% 10 Ml Flush Syringe IV 10 ml BID SEGUNDO Administration Sodium Chloride 10 ml 04/02/22 23:53 05/16/22 05:10 Sodium Chloride 0.9% 10 Ml Flush Syringe IV 10 ml PRN PRN Administration LINE FLUSH Nutrition/Malnutrition Assess - Dietary Evaluation Nutrition/Malnutrition Findings: Nutrition Notes Start: 04/04/22 13:1 3 Freq: Status: Active Protocol: Document 05/20/22 15:20 COLLEEN (Rec: 05/20/22 15:36 COLLEEN [id number]) Nutrition Notes Initial or Follow up Brief Note Current Diagnosis Coronary Artery Disease, Decubitus(Pressure Ulcer), Sepsis,Respiratory Failure, Malnutrition Other Pertinent Diagnosis HCAP, ALS, Broncopneumonia, NSTEMI, Cardiomyopathy, ... Current Diet TF-Osmolite 1.5 Inderjit @ 55 ml/hr (since D 05/19). Height 5 ft 4.8 in Weight 48.6 kg [place] Body Weight (kg) 61.27 BMI 17.9 Weight change and time frame No body weight change reported in 3 days. Weight Status Underweight Subjective/Other Information RD consult for routine F/U on TF tolerance/continuation. Pt resumed Osmolite yesterday, but order was not place in Chart, I will procede to place the order. Percent of energy/protein needs met: Prescribed TF-Osmolite 1.5 Inderjit @ 55 ml/hr provides for energy/protein needs (1,980 Kcal/83 g) during LOS, 102% Kcal; 100% AA. #1 Nutrition Diagnosis Inadequate oral intake Diagnosis Progress(for reassessment Continues documentation) Is patient on ventilator? Yes Is Patient Ambulatory and/or Out of Bed No REE-([facility]-confined to bed) 1498.320 Kcal/Kg value to use for calculation 40 Approximate Energy Requirements Using 1944 kcal/Kg Calculation Used for Recommendations Kcal/kg Additional Notes Protein: 1.5-2 g/Kg ABW; 73-98 g/day. Fluids: 1 ml/Kcal, or as per MD. Nutrition Intervention Nutrition Support: Continue TF-Osmolite 1.5 Inderjit @ 55 ml/hr. Flush: 150 ml water Q 4 hr, or as per MD. Kcal 1,980 Protein (gm) 83 Carbohydrates (gm) 269 Fat (gm) 65 Fluid (mL) 1,006 Fiber (gm) 0 % RDI: 102% Kcal; 100% AA. Goal #1 Provide at least 75% of energy /protein needs through Enteral Feeding during LOS. Follow-Up By: 05/27/22 Additional Comments Continue monitoring TF tolerance and BM.
--- NOTE | 2022-05-23 14:01 | Progress Note ---
Assessment and Plan 57-year-old male with known history of ALS brought into the emergency room via EMS today for changes in mental status and respiratory distress. Most of the history was gotten from family namely and daughter who were by the bedside as patient is currently intubated. Patient was said to have been seen at [facility] few days ago where he was diagnosed with pneumonia and possible heart attack. Discharge paperwork from [facility] was reviewed by the bedside and patient was said to have been diagnosed with pneumonia and also elevated troponin. Elevated troponin was said to be possibly due to demand ischemia and patient did not undergo any further cardiac work-up. Patient was subsequently discharged home. Patient was said to have suddenly had a change in mental status today and was not quite responsive. There has been no fever or chills. No complaint of chest pain, no nausea or vomiting and no abdominal pain. Work-up in the emergency room lab reveals leukocytosis of 14.3, troponin 0.048, sodium of 151. Urinalysis essentially within normal limits. Chest x-ray reveals moderate to large effusion on the right. Patient was said to be having Agonal breathing and was subsequently intubated in the emergency room. Patient placed on mechanical ventilation. Unable to wean from the ventilator. Arranged home ventilator. However patient desaturating on high home ventilator settings. Recommend jail home placement with Mechanical ventilation. Also founf stage 1V sacral wound. Wound care nurse and general surgery consulted. Oatient undergone sacral wound debridement with Dr. Jerome with wound vac and mesh placement Patient awake at this time. Patient weak, Patient is on assist control mechanical ventilation, rate 14, tidal volume 500, PEEP 12, FIO2 50%. and O2 saturation running 96%. Patient afebrile. No leukocytosis. Blood pressure 111/58 , pulse 111 , respirations 20 Chest xray done 05/18/22 reported Patchy infiltrates remain at the lung bases. Mild improving basilar aeration. No pneumothorax. Patient is on Levaquin, Vancomycin, Mucomyst, Pepcid, S/C Heparin, Albuterol inhaler. I spent critical care time of 35 minutes, reviewing the chart, examine the patient, review labs and chest xray results, talking to the respiratory therapy and nursing staff and work out plan of treatment in this critically ill patient. - Patient Problems (1) Respiratory failure Current Visit: Yes Status: Acute Plan to address problem: Mechanical ventilation, Assist control, rate 14, Tidal volume 500, PEEP 12, FIO2 50% Recommend albuterol aerosol treatments q 6 hours. Continue S/C Heparin. Continue Famotidine (2) Acute coronary syndrome Current Visit: Yes Status: Acute Plan to address problem: Management as per cardiology. (3) Elevated troponin Current Visit: Yes Status: Acute Plan to address problem: Management as per cardiology. (4) History of amyotrophic lateral sclerosis Current Visit: No Status: Acute Plan to address problem: Continue Mechanical ventilation. Rest of the management with primary care and neurology (5) Sacral wound Current Visit: Yes Status: Acute Plan to address problem: Wound care nurse and General surgery consulted. Patient undergone debridement of the wound. Patient is on antibiotics Levaquin and vancomycin. Subjective Date of service: 05/23/22 Principal diagnosis: Ac and ch hypercapnic and hypoxemic Resp Failure; ALS; HCAP; Sepsis; NSTEMI Interval history: 57-year-old male with known history of ALS brought into the emergency room via EMS today for changes in mental status and respiratory distress. Most of the history was gotten from family namely and daughter who were by the bedside as patient is currently intubated. Patient was said to have been seen at [facility] few days ago where he was diagnosed with pneumonia and possible heart attack. Discharge paperwork from [facility] was reviewed by the bedside and patient was said to have been diagnosed with pneumonia and also elevated troponin. Elevated troponin was said to be possibly due to demand ischemia and patient did not undergo any further cardiac work-up. Patient was subsequently discharged home. Patient was said to have suddenly had a change in mental status today and was not quite responsive. There has been no fever or chills. No complaint of chest pain, no nausea or vomiting and no abdominal pain. Work-up in the emergency room lab reveals leukocytosis of 14.3, troponin 0.048, sodium of 151. Urinalysis essentially within normal limits. Chest x-ray reveals moderate to large effusion on the right. Patient was said to be having Agonal breathing and was subsequently intubated in the emergency room. Patient placed on mechanical ventilation. Unable to wean from the ventilator. Arranged home ventilator. However patient desaturating on high home ventilator settings. Recommend jail home placement with Mechanical ventilation. Also found stage 1V sacral wound. Wound care nurse and general surgery consulted. Oatient undergone sacral wound debridement with Dr. Jerome with wound vac and mesh placement Patient awake at this time. Patient weak, Patient is on assist control mechanical ventilation, rate 14, tidal volume 500, PEEP 12, FIO2 50%. and O2 saturation running 96%. Patient afebrile. No leukocytosis. Blood pressure 111/58 , pulse 111 , respirations 20 Chest xray done 05/18/22 reported Patchy infiltrates remain at the lung bases. Mild improving basilar aeration. No pneumothorax. Patient is on Levaquin, Vancomycin, Mucomyst, Pepcid, S/C Heparin, Albuterol inhaler. Objective Vital Signs - 12hr 05/23/22 05/23/22 05/23/22 03:00 03:47 04:00 Temperature 100.1 F H Pulse Rate 117 H 121 H 110 H Pulse Rate [ 116 H From Monitor] Respiratory 14 14 Rate Blood Pressure 110/73 110/73 113/64 O2 Sat by Pulse 94 94 93 Oximetry O2 Sat by Pulse Oximetry [ Assessment] 05/23/22 05/23/22 05/23/22 05:00 06:00 06:30 Temperature Pulse Rate 134 H 126 H 121 H Pulse Rate [ From Monitor] Respiratory 19 20 Rate Blood Pressure 124/74 130/76 130/76 O2 Sat by Pulse 90 90 Oximetry O2 Sat by Pulse Oximetry [ Assessment] 05/23/22 05/23/22 05/23/22 07:00 07:36 07:45 Temperature Pulse Rate 106 H 112 H Pulse Rate [ From Monitor] Respiratory 24 Rate Blood Pressure 118/67 118/67 O2 Sat by Pulse 97 96 Oximetry O2 Sat by Pulse 97 Oximetry [ Assessment] 05/23/22 05/23/22 05/23/22 07:47 08:00 09:00 Temperature 100.5 F H 100.5 F H Pulse Rate 118 H 120 H Pulse Rate [ 118 H From Monitor] Respiratory 17 20 Rate Blood Pressure 113/64 120/73 O2 Sat by Pulse 95 94 Oximetry O2 Sat by Pulse Oximetry [ Assessment] 05/23/22 05/23/22 05/23/22 10:00 11:00 11:50 Temperature 100.3 F H Pulse Rate 121 H 127 H Pulse Rate [ From Monitor] Respiratory 13 24 Rate Blood Pressure 119/68 122/71 O2 Sat by Pulse 92 90 Oximetry O2 Sat by Pulse Oximetry [ Assessment] 05/23/22 05/23/22 05/23/22 12:00 12:07 13:00 Temperature 100.3 F H Pulse Rate 125 H 122 H 113 H Pulse Rate [ 122 H From Monitor] Respiratory 14 25 H Rate Blood Pressure 126/75 126/75 126/77 O2 Sat by Pulse 92 94 Oximetry O2 Sat by Pulse Oximetry [ Assessment] Constitutional: no acute distress, alert, other (resting in bed without increased respiratory effort on assist control Mechanical ventilation. Patient weak and contracted.) Eyes: non-icteric ENT: oropharynx moist, other (+ midline tracheostomy to home vent) Neck: supple, no lymphadenopathy, no JVD Effort: normal Ascultation: Bilateral: diminished breath sounds (bases), rhonchi Percussion: Bilateral: not dull Cardiovascular: regular rate and rhythm, other (S1,S2) Gastrointestinal: normoactive bowel sounds, soft, non-tender, non-distended Integumentary: normal, decubitus ulcer (see wound care pictures) Extremities: no cyanosis, no edema, pink and warm, pulses normal Neurologic: pupils equal and round, other (functional quadriplegia) Psychiatric: other (Difficult to evaluate because of mental status.) CBC and BMP: 05/22/22 05:49 05/22/22 05:49 ABG, PT/INR, D-dimer: ABG ABG pH 7.385 pH Units (7.350-7.450) 05/19/22 06:10 ABG pCO2 51.9 mm Hg 05/19/22 06:10 ABG pO2 70.5 mm Hg (80.0-90.0) L 05/19/22 06:10 ABG O2 Saturation 97.6 % (95.0-99.0) 05/19/22 06:10 PT/INR, D-dimer PT 13.6 Sec. (12.2-14.9) 04/13/22 04:30 INR 0.94 (0.87-1.13) 04/13/22 04:30 Abnormal lab findings: Abnormal Labs 04/02/22 04/02/22 04/02/22 19:39 19:39 19:39 WBC 14.3 H RBC Hgb Hct MCV 96 H MCHC RDW Plt Count 104 L Lymph % (Auto) [place] % (Auto) Lymph # (Auto) [place] # (Auto) Seg Neutrophils % Seg Neuts % (Manual) 94.0 H Lymphocytes % (Manual) 1.0 L Seg Neutrophils # Seg Neutrophils # Man 13.4 H Lymphocytes # (Manual) 0.1 L PT 15.9 H INR 1.14 H ABG pH ABG pO2 ABG HCO3 ABG O2 Saturation ABG Base Excess ABG Hemoglobin Oxyhemoglobin Sodium 151 H Potassium Chloride Carbon Dioxide BUN Creatinine 0.5 L Glucose POC Glucose Calcium 8.2 L Phosphorus Magnesium 1.60 L Total Creatine Kinase CK-MB (CK-2) Rel Index Troponin T 0.048 H C-Reactive Protein Total Protein 4.6 L Albumin 2.7 L LDL Cholesterol Direct 27 L Urine WBC (Auto) Crossmatch 04/02/22 04/03/22 04/03/22 19:42 05:14 06:30 WBC RBC Hgb Hct MCV MCHC RDW Plt Count Lymph % (Auto) [place] % (Auto) Lymph # (Auto) [place] # (Auto) Seg Neutrophils % Seg Neuts % (Manual) Lymphocytes % (Manual) Seg Neutrophils # Seg Neutrophils # Man Lymphocytes # (Manual) PT INR ABG pH 7.471 H 7.496 H ABG pO2 47.8 L 91.0 H ABG HCO3 30.6 H ABG O2 Saturation 94.4 L ABG Base Excess 6.2 H ABG Hemoglobin 11.0 L 12.8 L Oxyhemoglobin 93.1 L Sodium 149 H Potassium 3.4 L Chloride Carbon Dioxide BUN Creatinine 0.4 L Glucose POC Glucose Calcium Phosphorus Magnesium Total Creatine Kinase CK-MB (CK-2) Rel Index Troponin T C-Reactive Protein Total Protein Albumin LDL Cholesterol Direct Urine WBC (Auto) Crossmatch 04/04/22 04/04/22 04/04/22 04:18 04:18 05:50 WBC 11.8 H RBC Hgb Hct MCV MCHC RDW Plt Count 132 L Lymph % (Auto) [place] % (Auto) Lymph # (Auto) [place] # (Auto) Seg Neutrophils % Seg Neuts % (Manual) Lymphocytes % (Manual) Seg Neutrophils # Seg Neutrophils # Man Lymphocytes # (Manual) PT INR ABG pH 7.517 H ABG pO2 115.5 H ABG HCO3 29.9 H ABG O2 Saturation ABG Base Excess 6.7 H ABG Hemoglobin 12.3 L Oxyhemoglobin Sodium Potassium 3.5 L Chloride Carbon Dioxide 31 H BUN Creatinine 0.3 L Glucose 153 H POC Glucose Calcium Phosphorus 1.40 L Magnesium 1.50 L Total Creatine Kinase CK-MB (CK-2) Rel Index Troponin T C-Reactive Protein 31.60 H Total Protein Albumin LDL Cholesterol Direct Urine WBC (Auto) Crossmatch 04/05/22 04/05/22 04/05/22 02:50 05:25 11:28 WBC RBC Hgb Hct MCV MCHC RDW Plt Count Lymph % (Auto) [place] % (Auto) Lymph # (Auto) [place] # (Auto) Seg Neutrophils % Seg Neuts % (Manual) Lymphocytes % (Manual) Seg Neutrophils # Seg Neutrophils # Man Lymphocytes # (Manual) PT INR ABG pH 7.455 H ABG pO2 50.7 L ABG HCO3 30.5 H ABG O2 Saturation 89.4 L ABG Base Excess 5.9 H ABG Hemoglobin 11.8 L Oxyhemoglobin 88.2 L Sodium Potassium Chloride Carbon Dioxide 32 H BUN Creatinine 0.2 L Glucose 110 H POC Glucose 124 H Calcium 7.9 L Phosphorus Magnesium Total Creatine Kinase CK-MB (CK-2) Rel Index Troponin T C-Reactive Protein Total Protein Albumin LDL Cholesterol Direct Urine WBC (Auto) Crossmatch 04/05/22 04/05/22 04/06/22 17:45 Unknown 04:00 WBC RBC 3.55 L Hgb 11.1 L 11.5 L Hct 33.2 L 35.1 L MCV MCHC RDW Plt Count 113 L 114 L Lymph % (Auto) [place] % (Auto) Lymph # (Auto) [place] # (Auto) Seg Neutrophils % Seg Neuts % (Manual) Lymphocytes % (Manual) Seg Neutrophils # Seg Neutrophils # Man Lymphocytes # (Manual) PT INR ABG pH ABG pO2 ABG HCO3 ABG O2 Saturation ABG Base Excess ABG Hemoglobin Oxyhemoglobin Sodium Potassium Chloride Carbon Dioxide BUN Creatinine Glucose POC Glucose Calcium Phosphorus Magnesium Total Creatine Kinase CK-MB (CK-2) Rel Index Troponin T C-Reactive Protein Total Protein Albumin LDL Cholesterol Direct Urine WBC (Auto) 8.0 H Crossmatch 04/06/22 04/06/22 04/07/22 04:00 08:30 00:04 WBC RBC Hgb Hct MCV MCHC RDW Plt Count Lymph % (Auto) [place] % (Auto) Lymph # (Auto) [place] # (Auto) Seg Neutrophils % Seg Neuts % (Manual) Lymphocytes % (Manual) Seg Neutrophils # Seg Neutrophils # Man Lymphocytes # (Manual) PT INR ABG pH ABG pO2 60.8 L ABG HCO3 30.5 H ABG O2 Saturation 93.3 L ABG Base Excess 4.9 H ABG Hemoglobin 12.4 L Oxyhemoglobin 92.1 L Sodium Potassium 3.0 L Chloride Carbon Dioxide BUN Creatinine < 0.2 L Glucose 130 H POC Glucose 117 H Calcium 8.1 L Phosphorus Magnesium Total Creatine Kinase CK-MB (CK-2) Rel Index Troponin T C-Reactive Protein Total Protein Albumin LDL Cholesterol Direct Urine WBC (Auto) Crossmatch 04/07/22 04/07/22 04/07/22 03:51 03:51 03:51 WBC 14.6 H RBC 3.57 L Hgb 11.1 L Hct 33.2 L MCV MCHC RDW Plt Count 118 L Lymph % (Auto) 4.3 L [place] % (Auto) 8.8 H Lymph # (Auto) 0.6 L [place] # (Auto) 1.3 H Seg Neutrophils % 86.6 H Seg Neuts % (Manual) Lymphocytes % (Manual) Seg Neutrophils # 12.7 H Seg Neutrophils # Man Lymphocytes # (Manual) PT 15.2 H INR ABG pH ABG pO2 ABG HCO3 ABG O2 Saturation ABG Base Excess ABG Hemoglobin Oxyhemoglobin Sodium 133 L Potassium Chloride 96.0 L Carbon Dioxide 31 H BUN Creatinine 0.2 L Glucose 130 H POC Glucose Calcium 8.0 L Phosphorus Magnesium Total Creatine Kinase CK-MB (CK-2) Rel Index Troponin T C-Reactive Protein Total Protein Albumin LDL Cholesterol Direct Urine WBC (Auto) Crossmatch 04/07/22 04/07/22 04/08/22 04:25 09:10 04:49 WBC 16.1 H RBC 3.54 L Hgb 10.9 L Hct 33.3 L MCV MCHC RDW Plt Count Lymph % (Auto) [place] % (Auto) Lymph # (Auto) [place] # (Auto) Seg Neutrophils % Seg Neuts % (Manual) Lymphocytes % (Manual) Seg Neutrophils # Seg Neutrophils # Man Lymphocytes # (Manual) PT INR ABG pH ABG pO2 71.0 L 63.4 L ABG HCO3 31.5 H 40.0 H ABG O2 Saturation 94.9 L ABG Base Excess 5.9 H 13.6 H ABG Hemoglobin 11.3 L 9.0 L Oxyhemoglobin 93.6 L Sodium Potassium Chloride Carbon Dioxide BUN Creatinine Glucose POC Glucose Calcium Phosphorus Magnesium Total Creatine Kinase CK-MB (CK-2) Rel Index Troponin T C-Reactive Protein Total Protein Albumin LDL Cholesterol Direct Urine WBC (Auto) Crossmatch 04/08/22 04/08/22 04/08/22 04:49 09:53 10:25 WBC RBC Hgb Hct MCV MCHC RDW Plt Count Lymph % (Auto) [place] % (Auto) Lymph # (Auto) [place] # (Auto) Seg Neutrophils % Seg Neuts % (Manual) Lymphocytes % (Manual) Seg Neutrophils # Seg Neutrophils # Man Lymphocytes # (Manual) PT INR ABG pH ABG pO2 ABG HCO3 34.7 H ABG O2 Saturation ABG Base Excess 7.9 H ABG Hemoglobin 11.0 L Oxyhemoglobin Sodium 136 L Potassium Chloride 97.7 L Carbon Dioxide 33 H BUN Creatinine 0.2 L Glucose 155 H POC Glucose Calcium Phosphorus Magnesium Total Creatine Kinase CK-MB (CK-2) Rel Index Troponin T 0.030 H C-Reactive Protein Total Protein Albumin LDL Cholesterol Direct Urine WBC (Auto) Crossmatch 04/08/22 04/08/22 04/08/22 11:19 17:47 18:06 WBC RBC Hgb Hct MCV MCHC RDW Plt Count Lymph % (Auto) [place] % (Auto) Lymph # (Auto) [place] # (Auto) Seg Neutrophils % Seg Neuts % (Manual) Lymphocytes % (Manual) Seg Neutrophils # Seg Neutrophils # Man Lymphocytes # (Manual) PT INR ABG pH ABG pO2 ABG HCO3 ABG O2 Saturation ABG Base Excess ABG Hemoglobin Oxyhemoglobin Sodium Potassium Chloride Carbon Dioxide BUN Creatinine Glucose POC Glucose 121 H Calcium Phosphorus Magnesium Total Creatine Kinase 31 L 46 L CK-MB (CK-2) Rel Index 6.4 H 5.6 H Troponin T 0.030 H 0.031 H C-Reactive Protein Total Protein Albumin LDL Cholesterol Direct Urine WBC (Auto) Crossmatch 04/09/22 04/09/22 04/09/22 04:35 04:35 11:24 WBC 11.5 H RBC 3.16 L Hgb 9.9 L Hct 29.4 L MCV MCHC RDW Plt Count 131 L Lymph % (Auto) [place] % (Auto) Lymph # (Auto) [place] # (Auto) Seg Neutrophils % Seg Neuts % (Manual) Lymphocytes % (Manual) Seg Neutrophils # Seg Neutrophils # Man Lymphocytes # (Manual) PT INR ABG pH ABG pO2 ABG HCO3 ABG O2 Saturation ABG Base Excess ABG Hemoglobin Oxyhemoglobin Sodium Potassium Chloride 97.1 L Carbon Dioxide 35 H BUN Creatinine < 0.2 L Glucose 145 H POC Glucose 147 H Calcium Phosphorus Magnesium Total Creatine Kinase CK-MB (CK-2) Rel Index Troponin T C-Reactive Protein Total Protein Albumin LDL Cholesterol Direct Urine WBC (Auto) Crossmatch 04/09/22 04/09/22 04/09/22 13:00 17:32 23:48 WBC RBC Hgb Hct MCV MCHC RDW Plt Count Lymph % (Auto) [place] % (Auto) Lymph # (Auto) [place] # (Auto) Seg Neutrophils % Seg Neuts % (Manual) Lymphocytes % (Manual) Seg Neutrophils # Seg Neutrophils # Man Lymphocytes # (Manual) PT INR ABG pH ABG pO2 66.6 L ABG HCO3 38.2 H ABG O2 Saturation 94.4 L ABG Base Excess 10.7 H ABG Hemoglobin 10.7 L Oxyhemoglobin 92.8 L Sodium Potassium Chloride Carbon Dioxide BUN Creatinine Glucose POC Glucose 143 H 114 H Calcium Phosphorus Magnesium Total Creatine Kinase CK-MB (CK-2) Rel Index Troponin T C-Reactive Protein Total Protein Albumin LDL Cholesterol Direct Urine WBC (Auto) Crossmatch 04/10/22 04/10/22 04/10/22 04:48 04:48 05:34 WBC RBC 2.91 L Hgb 9.1 L Hct 27.7 L MCV 95 H MCHC RDW Plt Count Lymph % (Auto) [place] % (Auto) Lymph # (Auto) [place] # (Auto) Seg Neutrophils % Seg Neuts % (Manual) Lymphocytes % (Manual) Seg Neutrophils # Seg Neutrophils # Man Lymphocytes # (Manual) PT INR ABG pH ABG pO2 ABG HCO3 ABG O2 Saturation ABG Base Excess ABG Hemoglobin Oxyhemoglobin Sodium Potassium Chloride 95.7 L Carbon Dioxide 38 H BUN Creatinine < 0.2 L Glucose 118 H POC Glucose 127 H Calcium Phosphorus Magnesium Total Creatine Kinase CK-MB (CK-2) Rel Index Troponin T C-Reactive Protein Total Protein Albumin LDL Cholesterol Direct Urine WBC (Auto) Crossmatch 04/10/22 04/11/22 04/11/22 23:10 04:15 04:15 WBC 17.2 H RBC 2.98 L Hgb 9.2 L Hct 27.9 L MCV MCHC RDW Plt Count Lymph % (Auto) [place] % (Auto) Lymph # (Auto) [place] # (Auto) Seg Neutrophils % Seg Neuts % (Manual) Lymphocytes % (Manual) Seg Neutrophils # Seg Neutrophils # Man Lymphocytes # (Manual) PT INR ABG pH ABG pO2 ABG HCO3 ABG O2 Saturation ABG Base Excess ABG Hemoglobin Oxyhemoglobin Sodium Potassium Chloride 96.1 L Carbon Dioxide 35 H BUN Creatinine < 0.2 L Glucose 138 H POC Glucose 106 H Calcium 8.3 L Phosphorus Magnesium Total Creatine Kinase CK-MB (CK-2) Rel Index Troponin T C-Reactive Protein Total Protein Albumin LDL Cholesterol Direct Urine WBC (Auto) Crossmatch 04/11/22 04/11/22 04/11/22 05:31 13:18 16:20 WBC RBC Hgb Hct MCV MCHC RDW Plt Count Lymph % (Auto) [place] % (Auto) Lymph # (Auto) [place] # (Auto) Seg Neutrophils % Seg Neuts % (Manual) Lymphocytes % (Manual) Seg Neutrophils # Seg Neutrophils # Man Lymphocytes # (Manual) PT INR ABG pH ABG pO2 57.8 L ABG HCO3 40.5 H ABG O2 Saturation 90.6 L ABG Base Excess 12.6 H ABG Hemoglobin 10.5 L Oxyhemoglobin 89.0 L Sodium Potassium Chloride Carbon Dioxide BUN Creatinine Glucose POC Glucose 129 H 132 H Calcium Phosphorus Magnesium Total Creatine Kinase CK-MB (CK-2) Rel Index Troponin T C-Reactive Protein Total Protein Albumin LDL Cholesterol Direct Urine WBC (Auto) Crossmatch 04/11/22 04/11/22 04/12/22 17:29 23:17 04:00 WBC 17.4 H RBC 2.96 L Hgb 9.0 L Hct 28.0 L MCV 95 H MCHC RDW Plt Count Lymph % (Auto) [place] % (Auto) Lymph # (Auto) [place] # (Auto) Seg Neutrophils % Seg Neuts % (Manual) Lymphocytes % (Manual) Seg Neutrophils # Seg Neutrophils # Man Lymphocytes # (Manual) PT INR ABG pH ABG pO2 ABG HCO3 ABG O2 Saturation ABG Base Excess ABG Hemoglobin Oxyhemoglobin Sodium Potassium Chloride Carbon Dioxide BUN Creatinine Glucose POC Glucose 125 H 151 H Calcium Phosphorus Magnesium Total Creatine Kinase CK-MB (CK-2) Rel Index Troponin T C-Reactive Protein Total Protein Albumin LDL Cholesterol Direct Urine WBC (Auto) Crossmatch 04/12/22 04/12/22 04/12/22 04:00 17:03 23:39 WBC RBC Hgb Hct MCV MCHC RDW Plt Count Lymph % (Auto) [place] % (Auto) Lymph # (Auto) [place] # (Auto) Seg Neutrophils % Seg Neuts % (Manual) Lymphocytes % (Manual) Seg Neutrophils # Seg Neutrophils # Man Lymphocytes # (Manual) PT INR ABG pH ABG pO2 ABG HCO3 ABG O2 Saturation ABG Base Excess ABG Hemoglobin Oxyhemoglobin Sodium Potassium Chloride 97.4 L Carbon Dioxide 37 H BUN Creatinine < 0.2 L Glucose 127 H POC Glucose 106 H 107 H Calcium Phosphorus Magnesium Total Creatine Kinase CK-MB (CK-2) Rel Index Troponin T C-Reactive Protein Total Protein Albumin LDL Cholesterol Direct Urine WBC (Auto) Crossmatch 04/13/22 04/13/22 04/13/22 04:30 04:30 17:39 WBC 14.1 H RBC 2.66 L Hgb 8.4 L Hct 25.5 L MCV 96 H MCHC RDW Plt Count Lymph % (Auto) [place] % (Auto) Lymph # (Auto) [place] # (Auto) Seg Neutrophils % Seg Neuts % (Manual) Lymphocytes % (Manual) Seg Neutrophils # Seg Neutrophils # Man Lymphocytes # (Manual) PT INR ABG pH ABG pO2 ABG HCO3 ABG O2 Saturation ABG Base Excess ABG Hemoglobin Oxyhemoglobin Sodium Potassium Chloride 93.9 L Carbon Dioxide 39 H BUN Creatinine < 0.2 L Glucose POC Glucose 134 H Calcium Phosphorus 1.90 L Magnesium Total Creatine Kinase CK-MB (CK-2) Rel Index Troponin T C-Reactive Protein Total Protein Albumin LDL Cholesterol Direct Urine WBC (Auto) Crossmatch 04/14/22 04/14/22 04/14/22 05:03 05:03 09:10 WBC 15.6 H RBC 3.02 L Hgb 9.3 L Hct 28.8 L MCV 95 H MCHC RDW Plt Count Lymph % (Auto) [place] % (Auto) Lymph # (Auto) [place] # (Auto) Seg Neutrophils % Seg Neuts % (Manual) Lymphocytes % (Manual) Seg Neutrophils # Seg Neutrophils # Man Lymphocytes # (Manual) PT INR ABG pH ABG pO2 66.9 L ABG HCO3 44.5 H ABG O2 Saturation ABG Base Excess 17.2 H ABG Hemoglobin 8.1 L Oxyhemoglobin 94.8 L Sodium Potassium Chloride 93.8 L Carbon Dioxide 42 H* BUN Creatinine < 0.2 L Glucose 117 H POC Glucose Calcium Phosphorus Magnesium Total Creatine Kinase CK-MB (CK-2) Rel Index Troponin T C-Reactive Protein Total Protein Albumin LDL Cholesterol Direct Urine WBC (Auto) Crossmatch 04/15/22 04/15/22 04/16/22 04:44 04:44 04:16 WBC 13.0 H 12.6 H RBC 3.19 L 3.09 L Hgb 9.6 L 9.5 L Hct 30.2 L 29.1 L MCV 95 H MCHC RDW Plt Count 456 H Lymph % (Auto) [place] % (Auto) Lymph # (Auto) [place] # (Auto) Seg Neutrophils % Seg Neuts % (Manual) Lymphocytes % (Manual) Seg Neutrophils # Seg Neutrophils # Man Lymphocytes # (Manual) PT INR ABG pH ABG pO2 ABG HCO3 ABG O2 Saturation ABG Base Excess ABG Hemoglobin Oxyhemoglobin Sodium Potassium Chloride 95.5 L Carbon Dioxide 37 H BUN Creatinine < 0.2 L Glucose POC Glucose Calcium Phosphorus Magnesium Total Creatine Kinase CK-MB (CK-2) Rel Index Troponin T C-Reactive Protein Total Protein Albumin LDL Cholesterol Direct Urine WBC (Auto) Crossmatch 04/16/22 04/16/22 04/16/22 04:16 05:00 14:00 WBC RBC Hgb Hct MCV MCHC RDW Plt Count Lymph % (Auto) [place] % (Auto) Lymph # (Auto) [place] # (Auto) Seg Neutrophils % Seg Neuts % (Manual) Lymphocytes % (Manual) Seg Neutrophils # Seg Neutrophils # Man Lymphocytes # (Manual) PT INR ABG pH 7.324 L ABG pO2 55.6 L ABG HCO3 45.3 H ABG O2 Saturation 87.1 L ABG Base Excess 16.6 H ABG Hemoglobin 8.6 L Oxyhemoglobin 85.7 L Sodium Potassium Chloride 97.6 L Carbon Dioxide 36 H BUN Creatinine < 0.2 L Glucose 109 H POC Glucose 120 H Calcium Phosphorus Magnesium Total Creatine Kinase CK-MB (CK-2) Rel Index Troponin T C-Reactive Protein Total Protein Albumin LDL Cholesterol Direct Urine WBC (Auto) Crossmatch 04/17/22 04/17/22 04/17/22 04:36 04:36 04:57 WBC 14.4 H RBC 3.08 L Hgb 9.4 L Hct 29.0 L MCV MCHC RDW Plt Count Lymph % (Auto) [place] % (Auto) Lymph # (Auto) [place] # (Auto) Seg Neutrophils % Seg Neuts % (Manual) Lymphocytes % (Manual) Seg Neutrophils # Seg Neutrophils # Man Lymphocytes # (Manual) PT INR ABG pH ABG pO2 ABG HCO3 ABG O2 Saturation ABG Base Excess ABG Hemoglobin Oxyhemoglobin Sodium Potassium Chloride 95.9 L Carbon Dioxide 39 H BUN Creatinine < 0.2 L Glucose 140 H POC Glucose 137 H Calcium 8.3 L Phosphorus Magnesium Total Creatine Kinase CK-MB (CK-2) Rel Index Troponin T C-Reactive Protein Total Protein Albumin LDL Cholesterol Direct Urine WBC (Auto) Crossmatch 04/17/22 04/17/22 04/18/22 09:15 18:01 04:20 WBC 11.2 H RBC 3.00 L Hgb 9.3 L Hct 28.6 L MCV 95 H MCHC RDW Plt Count Lymph % (Auto) [place] % (Auto) Lymph # (Auto) [place] # (Auto) Seg Neutrophils % Seg Neuts % (Manual) Lymphocytes % (Manual) Seg Neutrophils # Seg Neutrophils # Man Lymphocytes # (Manual) PT INR ABG pH 7.345 L ABG pO2 ABG HCO3 48.2 H ABG O2 Saturation ABG Base Excess 19.2 H ABG Hemoglobin 9.7 L Oxyhemoglobin Sodium Potassium Chloride Carbon Dioxide BUN Creatinine Glucose POC Glucose 129 H Calcium Phosphorus Magnesium Total Creatine Kinase CK-MB (CK-2) Rel Index Troponin T C-Reactive Protein Total Protein Albumin LDL Cholesterol Direct Urine WBC (Auto) Crossmatch 04/18/22 04/18/22 04/18/22 04:20 17:35 23:50 WBC RBC Hgb Hct MCV MCHC RDW Plt Count Lymph % (Auto) [place] % (Auto) Lymph # (Auto) [place] # (Auto) Seg Neutrophils % Seg Neuts % (Manual) Lymphocytes % (Manual) Seg Neutrophils # Seg Neutrophils # Man Lymphocytes # (Manual) PT INR ABG pH ABG pO2 ABG HCO3 ABG O2 Saturation ABG Base Excess ABG Hemoglobin Oxyhemoglobin Sodium Potassium Chloride 96.8 L Carbon Dioxide 43 H* BUN 22 H Creatinine < 0.2 L Glucose 137 H POC Glucose 128 H 123 H Calcium 8.2 L Phosphorus Magnesium Total Creatine Kinase CK-MB (CK-2) Rel Index Troponin T C-Reactive Protein Total Protein Albumin LDL Cholesterol Direct Urine WBC (Auto) Crossmatch 04/19/22 04/19/22 04/19/22 04:08 04:08 08:50 WBC 16.8 H RBC 3.18 L Hgb 9.8 L Hct 30.1 L MCV 95 H MCHC RDW Plt Count Lymph % (Auto) [place] % (Auto) Lymph # (Auto) [place] # (Auto) Seg Neutrophils % Seg Neuts % (Manual) Lymphocytes % (Manual) Seg Neutrophils # Seg Neutrophils # Man Lymphocytes # (Manual) PT INR ABG pH ABG pO2 56.0 L ABG HCO3 47.1 H ABG O2 Saturation 93.3 L ABG Base Excess 20.1 H ABG Hemoglobin 8.0 L Oxyhemoglobin 91.8 L Sodium Potassium Chloride 96.2 L Carbon Dioxide 40 H BUN 24 H Creatinine < 0.2 L Glucose 125 H POC Glucose Calcium 8.3 L Phosphorus Magnesium Total Creatine Kinase CK-MB (CK-2) Rel Index Troponin T C-Reactive Protein Total Protein Albumin LDL Cholesterol Direct Urine WBC (Auto) Crossmatch 04/19/22 04/20/22 04/20/22 12:02 00:40 04:49 WBC 14.7 H RBC 3.36 L Hgb 10.3 L Hct 32.0 L MCV 95 H MCHC RDW Plt Count Lymph % (Auto) [place] % (Auto) Lymph # (Auto) [place] # (Auto) Seg Neutrophils % Seg Neuts % (Manual) Lymphocytes % (Manual) Seg Neutrophils # Seg Neutrophils # Man Lymphocytes # (Manual) PT INR ABG pH ABG pO2 ABG HCO3 ABG O2 Saturation ABG Base Excess ABG Hemoglobin Oxyhemoglobin Sodium Potassium Chloride Carbon Dioxide BUN Creatinine Glucose POC Glucose 124 H 140 H Calcium Phosphorus Magnesium Total Creatine Kinase CK-MB (CK-2) Rel Index Troponin T C-Reactive Protein Total Protein Albumin LDL Cholesterol Direct Urine WBC (Auto) Crossmatch 04/20/22 04/20/22 04/21/22 05:36 11:40 04:05 WBC RBC Hgb Hct MCV MCHC RDW Plt Count Lymph % (Auto) [place] % (Auto) Lymph # (Auto) [place] # (Auto) Seg Neutrophils % Seg Neuts % (Manual) Lymphocytes % (Manual) Seg Neutrophils # Seg Neutrophils # Man Lymphocytes # (Manual) PT INR ABG pH ABG pO2 ABG HCO3 ABG O2 Saturation ABG Base Excess ABG Hemoglobin Oxyhemoglobin Sodium Potassium Chloride 93.4 L Carbon Dioxide 40 H BUN 25 H Creatinine < 0.2 L Glucose 122 H POC Glucose 125 H 128 H Calcium Phosphorus Magnesium Total Creatine Kinase CK-MB (CK-2) Rel Index Troponin T C-Reactive Protein Total Protein Albumin LDL Cholesterol Direct Urine WBC (Auto) Crossmatch 04/21/22 04/22/22 04/22/22 10:31 05:03 05:03 WBC 12.6 H 12.7 H RBC 2.83 L 2.96 L Hgb 8.6 L 9.0 L Hct 26.9 L 28.0 L MCV 95 H 95 H MCHC RDW Plt Count Lymph % (Auto) [place] % (Auto) Lymph # (Auto) [place] # (Auto) Seg Neutrophils % Seg Neuts % (Manual) Lymphocytes % (Manual) Seg Neutrophils # Seg Neutrophils # Man Lymphocytes # (Manual) PT INR ABG pH ABG pO2 ABG HCO3 ABG O2 Saturation ABG Base Excess ABG Hemoglobin Oxyhemoglobin Sodium Potassium Chloride 93.9 L Carbon Dioxide 43 H* BUN 23 H Creatinine < 0.2 L Glucose 137 H POC Glucose Calcium Phosphorus Magnesium Total Creatine Kinase CK-MB (CK-2) Rel Index Troponin T C-Reactive Protein Total Protein Albumin LDL Cholesterol Direct Urine WBC (Auto) Crossmatch 04/22/22 04/23/22 04/24/22 08:34 09:40 04:29 WBC 14.4 H RBC 2.74 L Hgb 8.4 L Hct 25.7 L MCV MCHC RDW Plt Count Lymph % (Auto) [place] % (Auto) Lymph # (Auto) [place] # (Auto) Seg Neutrophils % Seg Neuts % (Manual) Lymphocytes % (Manual) Seg Neutrophils # Seg Neutrophils # Man Lymphocytes # (Manual) PT INR ABG pH ABG pO2 54.1 L 56.8 L ABG HCO3 48.5 H 49.0 H ABG O2 Saturation 92.1 L 90.9 L ABG Base Excess 20.9 H 20.8 H ABG Hemoglobin 9.0 L 8.4 L Oxyhemoglobin 90.6 L 89.5 L Sodium Potassium Chloride Carbon Dioxide BUN Creatinine Glucose POC Glucose Calcium Phosphorus Magnesium Total Creatine Kinase CK-MB (CK-2) Rel Index Troponin T C-Reactive Protein Total Protein Albumin LDL Cholesterol Direct Urine WBC (Auto) Crossmatch 04/24/22 04/25/22 04/26/22 04:29 09:00 04:22 WBC RBC 2.88 L Hgb 8.9 L Hct 26.8 L MCV MCHC RDW Plt Count Lymph % (Auto) [place] % (Auto) Lymph # (Auto) [place] # (Auto) Seg Neutrophils % Seg Neuts % (Manual) Lymphocytes % (Manual) Seg Neutrophils # Seg Neutrophils # Man Lymphocytes # (Manual) PT INR ABG pH 7.457 H ABG pO2 66.7 L ABG HCO3 42.6 H ABG O2 Saturation ABG Base Excess 15.3 H ABG Hemoglobin 8.8 L Oxyhemoglobin 94.1 L Sodium Potassium Chloride 90.7 L Carbon Dioxide 40 H BUN Creatinine < 0.2 L Glucose 133 H POC Glucose Calcium Phosphorus Magnesium Total Creatine Kinase CK-MB (CK-2) Rel Index Troponin T C-Reactive Protein Total Protein Albumin LDL Cholesterol Direct Urine WBC (Auto) Crossmatch 04/26/22 04/29/22 04/29/22 04:22 04:18 04:18 WBC 13.5 H RBC 2.96 L Hgb 8.9 L Hct 27.7 L MCV MCHC RDW Plt Count Lymph % (Auto) [place] % (Auto) Lymph # (Auto) [place] # (Auto) Seg Neutrophils % Seg Neuts % (Manual) Lymphocytes % (Manual) Seg Neutrophils # Seg Neutrophils # Man Lymphocytes # (Manual) PT INR ABG pH ABG pO2 ABG HCO3 ABG O2 Saturation ABG Base Excess ABG Hemoglobin Oxyhemoglobin Sodium Potassium Chloride 93.2 L 95.2 L Carbon Dioxide 37 H 38 H BUN Creatinine < 0.2 L < 0.2 L Glucose 114 H 116 H POC Glucose Calcium Phosphorus Magnesium Total Creatine Kinase CK-MB (CK-2) Rel Index Troponin T C-Reactive Protein Total Protein Albumin LDL Cholesterol Direct Urine WBC (Auto) Crossmatch 05/02/22 05/03/22 05/03/22 04:29 04:02 04:02 WBC 12.9 H 12.3 H RBC 2.82 L 2.83 L Hgb 8.4 L 8.4 L Hct 26.2 L 26.0 L MCV MCHC RDW Plt Count Lymph % (Auto) [place] % (Auto) Lymph # (Auto) [place] # (Auto) Seg Neutrophils % Seg Neuts % (Manual) Lymphocytes % (Manual) Seg Neutrophils # Seg Neutrophils # Man Lymphocytes # (Manual) PT INR ABG pH ABG pO2 ABG HCO3 ABG O2 Saturation ABG Base Excess ABG Hemoglobin Oxyhemoglobin Sodium 134 L Potassium Chloride 90.5 L Carbon Dioxide 38 H BUN 21 H Creatinine < 0.2 L Glucose 126 H POC Glucose Calcium Phosphorus Magnesium Total Creatine Kinase CK-MB (CK-2) Rel Index Troponin T C-Reactive Protein Total Protein Albumin LDL Cholesterol Direct Urine WBC (Auto) Crossmatch 05/03/22 05/03/22 05/04/22 12:02 17:42 09:36 WBC RBC Hgb Hct MCV MCHC RDW Plt Count Lymph % (Auto) [place] % (Auto) Lymph # (Auto) [place] # (Auto) Seg Neutrophils % Seg Neuts % (Manual) Lymphocytes % (Manual) Seg Neutrophils # Seg Neutrophils # Man Lymphocytes # (Manual) PT INR ABG pH ABG pO2 55.4 L ABG HCO3 43.7 H ABG O2 Saturation 87.4 L ABG Base Excess 16.1 H ABG Hemoglobin 9.1 L Oxyhemoglobin 85.7 L Sodium Potassium Chloride Carbon Dioxide BUN Creatinine Glucose POC Glucose 139 H 131 H Calcium Phosphorus Magnesium Total Creatine Kinase CK-MB (CK-2) Rel Index Troponin T C-Reactive Protein Total Protein Albumin LDL Cholesterol Direct Urine WBC (Auto) Crossmatch 05/04/22 05/04/22 05/05/22 17:08 23:10 04:23 WBC 14.4 H RBC 2.75 L Hgb 8.2 L Hct 25.2 L MCV MCHC RDW Plt Count Lymph % (Auto) [place] % (Auto) Lymph # (Auto) [place] # (Auto) Seg Neutrophils % Seg Neuts % (Manual) Lymphocytes % (Manual) Seg Neutrophils # Seg Neutrophils # Man Lymphocytes # (Manual) PT INR ABG pH ABG pO2 ABG HCO3 ABG O2 Saturation ABG Base Excess ABG Hemoglobin Oxyhemoglobin Sodium Potassium Chloride Carbon Dioxide BUN Creatinine Glucose POC Glucose 124 H 115 H Calcium Phosphorus Magnesium Total Creatine Kinase CK-MB (CK-2) Rel Index Troponin T C-Reactive Protein Total Protein Albumin LDL Cholesterol Direct Urine WBC (Auto) Crossmatch 05/05/22 05/05/22 05/06/22 04:23 21:39 05:13 WBC RBC Hgb Hct MCV MCHC RDW Plt Count Lymph % (Auto) [place] % (Auto) Lymph # (Auto) [place] # (Auto) Seg Neutrophils % Seg Neuts % (Manual) Lymphocytes % (Manual) Seg Neutrophils # Seg Neutrophils # Man Lymphocytes # (Manual) PT INR ABG pH ABG pO2 ABG HCO3 ABG O2 Saturation ABG Base Excess ABG Hemoglobin Oxyhemoglobin Sodium Potassium Chloride 91.3 L Carbon Dioxide 38 H BUN 23 H Creatinine < 0.2 L Glucose 128 H POC Glucose 141 H 136 H Calcium Phosphorus Magnesium Total Creatine Kinase CK-MB (CK-2) Rel Index Troponin T C-Reactive Protein Total Protein Albumin LDL Cholesterol Direct Urine WBC (Auto) Crossmatch 05/07/22 05/07/22 05/08/22 05:29 22:15 05:48 WBC RBC Hgb Hct MCV MCHC RDW Plt Count Lymph % (Auto) [place] % (Auto) Lymph # (Auto) [place] # (Auto) Seg Neutrophils % Seg Neuts % (Manual) Lymphocytes % (Manual) Seg Neutrophils # Seg Neutrophils # Man Lymphocytes # (Manual) PT INR ABG pH ABG pO2 ABG HCO3 ABG O2 Saturation ABG Base Excess ABG Hemoglobin Oxyhemoglobin Sodium Potassium Chloride Carbon Dioxide BUN Creatinine Glucose POC Glucose 125 H 142 H 122 H Calcium Phosphorus Magnesium Total Creatine Kinase CK-MB (CK-2) Rel Index Troponin T C-Reactive Protein Total Protein Albumin LDL Cholesterol Direct Urine WBC (Auto) Crossmatch 05/08/22 05/08/22 05/09/22 14:04 21:48 15:15 WBC RBC 2.61 L Hgb 7.7 L Hct 23.2 L MCV MCHC RDW Plt Count Lymph % (Auto) 8.1 L [place] % (Auto) Lymph # (Auto) 0.9 L [place] # (Auto) Seg Neutrophils % 86.1 H Seg Neuts % (Manual) Lymphocytes % (Manual) Seg Neutrophils # 9.2 H Seg Neutrophils # Man Lymphocytes # (Manual) PT INR ABG pH ABG pO2 ABG HCO3 ABG O2 Saturation ABG Base Excess ABG Hemoglobin Oxyhemoglobin Sodium Potassium Chloride Carbon Dioxide BUN Creatinine Glucose POC Glucose 112 H 107 H Calcium Phosphorus Magnesium Total Creatine Kinase CK-MB (CK-2) Rel Index Troponin T C-Reactive Protein Total Protein Albumin LDL Cholesterol Direct Urine WBC (Auto) Crossmatch 05/09/22 05/09/22 05/09/22 15:15 15:39 21:15 WBC RBC Hgb Hct MCV MCHC RDW Plt Count Lymph % (Auto) [place] % (Auto) Lymph # (Auto) [place] # (Auto) Seg Neutrophils % Seg Neuts % (Manual) Lymphocytes % (Manual) Seg Neutrophils # Seg Neutrophils # Man Lymphocytes # (Manual) PT INR ABG pH ABG pO2 ABG HCO3 ABG O2 Saturation ABG Base Excess ABG Hemoglobin Oxyhemoglobin Sodium Potassium Chloride 92.9 L Carbon Dioxide 40 H BUN Creatinine < 0.2 L Glucose 141 H POC Glucose 118 H 112 H Calcium Phosphorus Magnesium Total Creatine Kinase CK-MB (CK-2) Rel Index Troponin T C-Reactive Protein Total Protein Albumin LDL Cholesterol Direct Urine WBC (Auto) Crossmatch 05/10/22 05/12/22 05/13/22 15:14 00:25 04:02 WBC 13.3 H RBC 3.14 L Hgb 8.7 L Hct 28.0 L MCV MCHC 31 L RDW Plt Count Lymph % (Auto) [place] % (Auto) Lymph # (Auto) [place] # (Auto) Seg Neutrophils % Seg Neuts % (Manual) Lymphocytes % (Manual) Seg Neutrophils # Seg Neutrophils # Man Lymphocytes # (Manual) PT INR ABG pH ABG pO2 ABG HCO3 ABG O2 Saturation ABG Base Excess ABG Hemoglobin Oxyhemoglobin Sodium Potassium Chloride Carbon Dioxide BUN Creatinine Glucose POC Glucose 113 H 158 H Calcium Phosphorus Magnesium Total Creatine Kinase CK-MB (CK-2) Rel Index Troponin T C-Reactive Protein Total Protein Albumin LDL Cholesterol Direct Urine WBC (Auto) Crossmatch 05/13/22 05/13/22 05/13/22 04:02 06:32 13:09 WBC RBC Hgb Hct MCV MCHC RDW Plt Count Lymph % (Auto) [place] % (Auto) Lymph # (Auto) [place] # (Auto) Seg Neutrophils % Seg Neuts % (Manual) Lymphocytes % (Manual) Seg Neutrophils # Seg Neutrophils # Man Lymphocytes # (Manual) PT INR ABG pH ABG pO2 ABG HCO3 ABG O2 Saturation ABG Base Excess ABG Hemoglobin Oxyhemoglobin Sodium 135 L Potassium Chloride 91.1 L Carbon Dioxide 40 H BUN 23 H Creatinine < 0.2 L Glucose 139 H POC Glucose 129 H 117 H Calcium Phosphorus Magnesium Total Creatine Kinase CK-MB (CK-2) Rel Index Troponin T C-Reactive Protein Total Protein Albumin LDL Cholesterol Direct Urine WBC (Auto) Crossmatch 05/13/22 05/14/22 05/14/22 21:28 05:44 07:35 WBC RBC Hgb Hct MCV MCHC RDW Plt Count Lymph % (Auto) [place] % (Auto) Lymph # (Auto) [place] # (Auto) Seg Neutrophils % Seg Neuts % (Manual) Lymphocytes % (Manual) Seg Neutrophils # Seg Neutrophils # Man Lymphocytes # (Manual) PT INR ABG pH ABG pO2 ABG HCO3 ABG O2 Saturation ABG Base Excess ABG Hemoglobin Oxyhemoglobin Sodium Potassium Chloride Carbon Dioxide BUN Creatinine Glucose POC Glucose 109 H 130 H 125 H Calcium Phosphorus Magnesium Total Creatine Kinase CK-MB (CK-2) Rel Index Troponin T C-Reactive Protein Total Protein Albumin LDL Cholesterol Direct Urine WBC (Auto) Crossmatch 05/14/22 05/14/22 05/15/22 16:26 23:44 10:44 WBC 13.9 H RBC 2.71 L Hgb 7.5 L Hct 23.5 L MCV MCHC RDW 15.9 H Plt Count Lymph % (Auto) [place] % (Auto) Lymph # (Auto) [place] # (Auto) Seg Neutrophils % Seg Neuts % (Manual) Lymphocytes % (Manual) Seg Neutrophils # Seg Neutrophils # Man Lymphocytes # (Manual) PT INR ABG pH ABG pO2 ABG HCO3 ABG O2 Saturation ABG Base Excess ABG Hemoglobin Oxyhemoglobin Sodium Potassium Chloride Carbon Dioxide BUN Creatinine Glucose POC Glucose 112 H 189 H Calcium Phosphorus Magnesium Total Creatine Kinase CK-MB (CK-2) Rel Index Troponin T C-Reactive Protein Total Protein Albumin LDL Cholesterol Direct Urine WBC (Auto) Crossmatch 05/15/22 05/16/22 05/16/22 10:44 14:50 21:36 WBC RBC Hgb Hct MCV MCHC RDW Plt Count Lymph % (Auto) [place] % (Auto) Lymph # (Auto) [place] # (Auto) Seg Neutrophils % Seg Neuts % (Manual) Lymphocytes % (Manual) Seg Neutrophils # Seg Neutrophils # Man Lymphocytes # (Manual) PT INR ABG pH ABG pO2 ABG HCO3 ABG O2 Saturation ABG Base Excess ABG Hemoglobin Oxyhemoglobin Sodium 135 L Potassium 3.3 L D Chloride 91.5 L Carbon Dioxide 33 H D BUN 21 H Creatinine < 0.2 L Glucose 118 H POC Glucose 133 H 123 H Calcium 7.9 L Phosphorus Magnesium Total Creatine Kinase CK-MB (CK-2) Rel Index Troponin T C-Reactive Protein Total Protein Albumin LDL Cholesterol Direct Urine WBC (Auto) Crossmatch 05/17/22 05/17/22 05/17/22 03:41 03:41 05:51 WBC 16.2 H RBC 2.53 L Hgb 7.0 L Hct 21.5 L MCV MCHC RDW 16.2 H Plt Count Lymph % (Auto) [place] % (Auto) Lymph # (Auto) [place] # (Auto) Seg Neutrophils % Seg Neuts % (Manual) 96.0 H Lymphocytes % (Manual) 1.0 L Seg Neutrophils # Seg Neutrophils # Man 15.6 H Lymphocytes # (Manual) 0.2 L PT INR ABG pH ABG pO2 ABG HCO3 ABG O2 Saturation ABG Base Excess ABG Hemoglobin Oxyhemoglobin Sodium 132 L Potassium Chloride 95.0 L Carbon Dioxide BUN 22 H Creatinine < 0.2 L Glucose 122 H POC Glucose 123 H Calcium Phosphorus Magnesium Total Creatine Kinase CK-MB (CK-2) Rel Index Troponin T C-Reactive Protein 31.20 H Total Protein Albumin LDL Cholesterol Direct Urine WBC (Auto) Crossmatch 05/17/22 05/17/22 05/18/22 07:53 21:03 05:41 WBC 15.0 H RBC 2.58 L Hgb 7.1 L Hct 22.3 L MCV MCHC RDW 16.1 H Plt Count Lymph % (Auto) [place] % (Auto) Lymph # (Auto) [place] # (Auto) Seg Neutrophils % Seg Neuts % (Manual) Lymphocytes % (Manual) Seg Neutrophils # Seg Neutrophils # Man Lymphocytes # (Manual) PT INR ABG pH ABG pO2 ABG HCO3 ABG O2 Saturation ABG Base Excess ABG Hemoglobin Oxyhemoglobin Sodium Potassium Chloride Carbon Dioxide BUN Creatinine Glucose POC Glucose 106 H 123 H Calcium Phosphorus Magnesium Total Creatine Kinase CK-MB (CK-2) Rel Index Troponin T C-Reactive Protein Total Protein Albumin LDL Cholesterol Direct Urine WBC (Auto) Crossmatch 05/18/22 05/18/22 05/18/22 05:41 13:56 21:08 WBC RBC Hgb Hct MCV MCHC RDW Plt Count Lymph % (Auto) [place] % (Auto) Lymph # (Auto) [place] # (Auto) Seg Neutrophils % Seg Neuts % (Manual) Lymphocytes % (Manual) Seg Neutrophils # Seg Neutrophils # Man Lymphocytes # (Manual) PT INR ABG pH ABG pO2 ABG HCO3 ABG O2 Saturation ABG Base Excess ABG Hemoglobin Oxyhemoglobin Sodium Potassium Chloride 97.9 L Carbon Dioxide BUN 23 H Creatinine < 0.2 L Glucose 128 H POC Glucose 137 H Calcium Phosphorus Magnesium Total Creatine Kinase CK-MB (CK-2) Rel Index Troponin T C-Reactive Protein Total Protein Albumin LDL Cholesterol Direct Urine WBC (Auto) Crossmatch See Detail 05/18/22 05/19/22 05/20/22 23:21 06:10 00:43 WBC 13.5 H RBC 2.53 L Hgb 7.2 L Hct 21.5 L MCV MCHC RDW 16.4 H Plt Count Lymph % (Auto) [place] % (Auto) Lymph # (Auto) [place] # (Auto) Seg Neutrophils % Seg Neuts % (Manual) Lymphocytes % (Manual) Seg Neutrophils # Seg Neutrophils # Man Lymphocytes # (Manual) PT INR ABG pH ABG pO2 70.5 L ABG HCO3 30.3 H ABG O2 Saturation ABG Base Excess 4.9 H ABG Hemoglobin 5.9 L Oxyhemoglobin Sodium Potassium Chloride Carbon Dioxide BUN Creatinine Glucose POC Glucose 151 H Calcium Phosphorus Magnesium Total Creatine Kinase CK-MB (CK-2) Rel Index Troponin T C-Reactive Protein Total Protein Albumin LDL Cholesterol Direct Urine WBC (Auto) Crossmatch 05/20/22 05/20/22 05/20/22 04:40 04:40 07:08 WBC 13.3 H RBC 2.57 L Hgb 7.1 L Hct 22.2 L MCV MCHC RDW 16.3 H Plt Count Lymph % (Auto) [place] % (Auto) Lymph # (Auto) [place] # (Auto) Seg Neutrophils % Seg Neuts % (Manual) Lymphocytes % (Manual) Seg Neutrophils # Seg Neutrophils # Man Lymphocytes # (Manual) PT INR ABG pH ABG pO2 ABG HCO3 ABG O2 Saturation ABG Base Excess ABG Hemoglobin Oxyhemoglobin Sodium 134 L Potassium Chloride Carbon Dioxide BUN Creatinine < 0.2 L Glucose 170 H POC Glucose 174 H Calcium 8.1 L Phosphorus Magnesium Total Creatine Kinase CK-MB (CK-2) Rel Index Troponin T C-Reactive Protein Total Protein Albumin LDL Cholesterol Direct Urine WBC (Auto) Crossmatch 05/20/22 05/21/2205/21/22 15:08 05:13 22:07 WBC RBC Hgb Hct MCV MCHC RDW Plt Count Lymph % (Auto) [place] % (Auto) Lymph # (Auto) [place] # (Auto) Seg Neutrophils % Seg Neuts % (Manual) Lymphocytes % (Manual) Seg Neutrophils # Seg Neutrophils # Man Lymphocytes # (Manual) PT INR ABG pH ABG pO2 ABG HCO3 ABG O2 Saturation ABG Base Excess ABG Hemoglobin Oxyhemoglobin Sodium Potassium Chloride Carbon Dioxide BUN Creatinine Glucose POC Glucose 114 H 149 H 113 H Calcium Phosphorus Magnesium Total Creatine Kinase CK-MB (CK-2) Rel Index Troponin T C-Reactive Protein Total Protein Albumin LDL Cholesterol Direct Urine WBC (Auto) Crossmatch 05/22/22 05/22/22 05/22/22 05:49 05:49 14:09 WBC RBC 3.05 L Hgb 8.6 L Hct 26.2 L MCV MCHC RDW 16.8 H Plt Count Lymph % (Auto) [place] % (Auto) Lymph # (Auto) [place] # (Auto) Seg Neutrophils % Seg Neuts % (Manual) Lymphocytes % (Manual) Seg Neutrophils # Seg Neutrophils # Man Lymphocytes # (Manual) PT INR ABG pH ABG pO2 ABG HCO3 ABG O2 Saturation ABG Base Excess ABG Hemoglobin Oxyhemoglobin Sodium 131 L Potassium Chloride 93.3 L Carbon Dioxide 32 H BUN Creatinine < 0.2 L Glucose 148 H POC Glucose 136 H Calcium 8.2 L Phosphorus Magnesium Total Creatine Kinase CK-MB (CK-2) Rel Index Troponin T C-Reactive Protein Total Protein Albumin LDL Cholesterol Direct Urine WBC (Auto) Crossmatch Allied health notes reviewed: RT
[2022-05-23] MEDS: SENNOSIDES ORAL LIQD 8.8 MG/5 ML ORAL LIQD FEEDTUBE SCH (21:15)
[2022-05-24] MEDS: METOPROLOL TARTRATE 25 MG TAB FEEDTUBE SCH ×5 (00:51→23:04)
[2022-05-24] MEDS: ACETAMINOPHEN 325 MG TAB PO PRN (00:52)
[2022-05-24 05:12] LABS: Hematocrit 24.9 % (35.5-45.6); Hemoglobin 7.9 gm/dl (11.8-15.2); Mean Corpuscular HGB Conc 32 % (32-34); Mean Corpuscular Volume 86 fl (84-94); Platelet Count 339 K/mm3 (140-440); Red Blood Count 2.89 M/mm3 (3.65-5.03)
[2022-05-24 05:28] LABS: Blood Urea Nitrogen 14 mg/dL (9-20); Calcium 8.3 mg/dL (8.4-10.2); Hemolysis Index 68
[2022-05-24 05:36] LABS: BUN/Creatinine Ratio 70
[2022-05-24] MEDS: HEPARIN 5,000 UNIT/1 ML VIAL SUB-Q SCH ×3 (06:45→21:12)
[2022-05-24] MEDS: ACETYLCYSTEINE 20% 200 MG/1 ML *FOR INHALATION USE INHALATION SCH ×2 (08:10→20:11)
[2022-05-24] MEDS: ALBUTEROL 2.5 MG/3 ML NEBU IH SCH ×2 (08:10→20:12)
--- NOTE | 2022-05-24 08:24 | Progress Note ---
<BAY TORRES - Last Filed: 05/24/22 15:04> Assessment and Plan - Patient Problems (1) Respiratory failure Current Visit: Yes Status: Acute Plan to address problem: patient has trach to vent Intubated on 04/02 with a 7.50 ETT attempt at the lips s/p trach on 04/14 and s/p bronch on 04/15 Vent settings: PRVC Rate 14, TV 500, Peep 12, FiO2 50% Monitor 02 sat and ABG. (2) History of amyotrophic lateral sclerosis Current Visit: No Status: Acute Plan to address problem: s/p precedex, fentanyl gtt Position change and keep clean and dry CT head with no acute intracranial process Patient non verbal at home Per medical record (3) Acute coronary syndrome Current Visit: Yes Status: Acute Plan to address problem: h/o cardiomyopathy Cardiology consulted Monitor Blood pressure monitoring per protocol s/p Vasopressor support with Levophed Echocardiogram shows ejection fraction of 40 to 45%, mild global hypokinesis of left ventricle Nitro patch, BB (4) Full code status Current Visit: No Status: Acute Plan to address problem: Patient is full code (5) Hyperkalemia Current Visit: Yes Status: Acute Plan to address problem: kayexalate ordered monitor potassium level (6) Hyponatremia Current Visit: Yes Status: Acute Plan to address problem: ? cause-kidney disease Monitor kidney function and sodium levels CT head with no acute intracranial process History Interval history: 05/24/22 -patient seen today at bedside. Patients eyes open with no purposeful response. i reviewed lab, mar, and v/s. potassium 5.1-kayexalate given times 1- will repeat BMP in am. Pt remain on trach to vent.V/s stable. The high probability of a clinically significant, sudden or life threatening deterioration of the [multi] system(s) required my full and direct attention, intervention and personal management. The aggregate critical care time was [60] minutes. This time is in addition to time spent performing reported procedures but includes the following: [x] Data Review and interpretation [x] Patient assessment and monitoring of vital signs [x] Documentation [x] Medication orders and management Disposition Plan: icu Total Time Spent with Patient (Minutes): 60 Hospitalist Physical - Constitutional Vitals: Temp Pulse Resp BP Pulse Ox 99.2 F 122 H 36 H 107/74 93 05/24/22 04:00 05/24/22 06:33 05/24/22 06:00 05/24/22 06:33 05/24/22 06:00 General appearance: Present: no acute distress, cachectic, other (trach/vent) - Respiratory Respiratory: bilateral: diminished - Integumentary Integumentary: Present: warm, dry - Psychiatric Psychiatric: other (open's eyes and no purposefull response) - Allied Health Allied health notes reviewed: nursing HEART Score - HEART Score Troponin: Troponin T 0.031 ng/mL (0.00-0.029) H 04/08/22 17:47 Results - Labs CBC & Chem 7: 05/24/22 04:22 05/24/22 04:22 Labs: Laboratory Last Values WBC 10.9 K/mm3 (4.5-11.0) 05/24/22 04:22 RBC 2.89 M/mm3 (3.65-5.03) L 05/24/22 04:22 Hgb 7.9 gm/dl (11.8-15.2) L 05/24/22 04:22 Hct 24.9 % (35.5-45.6) L 05/24/22 04:22 MCV 86 fl (84-94) 05/24/22 04:22 MCH 28 pg (28-32) 05/24/22 04:22 MCHC 32 % (32-34) 05/24/22 04:22 RDW 17.0 % (13.2-15.2) H 05/24/22 04:22 Plt Count 339 K/mm3 (140-440) D 05/24/22 04:22 Lymph % (Auto) 8.1 % (13.4-35.0) L 05/09/22 15:15 Hunt % (Auto) 4.9 % (0.0-7.3) 05/09/22 15:15 Eos % (Auto) 0.6 % (0.0-4.3) 05/09/22 15:15 Baso % (Auto) 0.3 % (0.0-1.8) 05/09/22 15:15 Lymph # (Auto) 0.9 K/mm3 (1.2-5.4) L 05/09/22 15:15 Hunt # (Auto) 0.5 K/mm3 (0.0-0.8) 05/09/22 15:15 Eos # (Auto) 0.1 K/mm3 (0.0-0.4) 05/09/22 15:15 Baso # (Auto) 0.0 K/mm3 (0.0-0.1) 05/09/22 15:15 Add Manual Diff Complete 05/17/22 03:41 Total Counted 100 05/17/22 03:41 Seg Neutrophils % Splicing Machine Operator 05/17/22 03:41 Seg Neuts % (Manual) 96.0 % (40.0-70.0) H 05/17/22 03:41 Band Neutrophils % 0 % 05/17/22 03:41 Lymphocytes % (Manual) 1.0 % (13.4-35.0) L 05/17/22 03:41 Reactive Lymphs % (Man) 0 % 05/17/22 03:41 Monocytes % (Manual) 3.0 % (0.0-7.3) 05/17/22 03:41 Eosinophils % (Manual) 0 % (0.0-4.3) 05/17/22 03:41 Basophils % (Manual) 0 % (0.0-1.8) 05/17/22 03:41 Metamyelocytes % 0 % 05/17/22 03:41 Myelocytes % 0 % 05/17/22 03:41 Promyelocytes % 0 % 05/17/22 03:41 Blast Cells % 0 % 05/17/22 03:41 Nucleated RBC % Not Reportable 05/17/22 03:41 Seg Neutrophils # 9.2 K/mm3 (1.8-7.7) H 05/09/22 15:15 Seg Neutrophils # Man 15.6 K/mm3 (1.8-7.7) H 05/17/22 03:41 Band Neutrophils # 0.0 K/mm3 05/17/22 03:41 Lymphocytes # (Manual) 0.2 K/mm3 (1.2-5.4) L 05/17/22 03:41 Abs React Lymphs (Man) 0.0 K/mm3 05/17/22 03:41 Monocytes # (Manual) 0.5 K/mm3 (0.0-0.8) 05/17/22 03:41 Eosinophils # (Manual) 0.0 K/mm3 (0.0-0.4) 05/17/22 03:41 Basophils # (Manual) 0.0 K/mm3 (0.0-0.1) 05/17/22 03:41 Metamyelocytes # 0.0 K/mm3 05/17/22 03:41 Myelocytes # 0.0 K/mm3 05/17/22 03:41 Promyelocytes # 0.0 K/mm3 05/17/22 03:41 Blast Cells # 0.0 K/mm3 05/17/22 03:41 WBC Morphology Not Reportable 05/17/22 03:41 Hypersegmented Neuts Not Reportable 05/17/22 03:41 Hyposegmented Neuts Not Reportable 05/17/22 03:41 Hypogranular Neuts Not Reportable 05/17/22 03:41 Smudge Cells Not Reportable 05/17/22 03:41 Toxic Granulation Not Reportable 05/17/22 03:41 Toxic Vacuolation Not Reportable 05/17/22 03:41 Dohle Bodies Not Reportable 05/17/22 03:41 Pelger-Huet Anomaly Not Reportable 05/17/22 03:41 Terry Rods Not Reportable 05/17/22 03:41 Platelet Estimate Consistent w auto 05/17/22 03:41 Clumped Platelets Not Reportable 05/17/22 03:41 Plt Clumps, EDTA Not Reportable 05/17/22 03:41 Large Platelets Not Reportable 05/17/22 03:41 Giant Platelets Not Reportable 05/17/22 03:41 Platelet Satelliting Not Reportable 05/17/22 03:41 Plt Morphology Comment Not Reportable 05/17/22 03:41 RBC Morphology Not Reportable 05/17/22 03:41 Dimorphic RBCs Not Reportable 05/17/22 03:41 Polychromasia Not Reportable 05/17/22 03:41 Hypochromasia Not Reportable 05/17/22 03:41 Poikilocytosis Not Reportable 05/17/22 03:41 Anisocytosis 1+ 05/17/22 03:41 Microcytosis Not Reportable 05/17/22 03:41 Macrocytosis Not Reportable 05/17/22 03:41 Spherocytes Not Reportable 05/17/22 03:41 Pappenheimer Bodies Not Reportable 05/17/22 03:41 Sickle Cells Not Reportable 05/17/22 03:41 Target Cells Not Reportable 05/17/22 03:41 Tear Drop Cells Not Reportable 05/17/22 03:41 Ovalocytes Not Reportable 05/17/22 03:41 Helmet Cells Not Reportable 05/17/22 03:41 Patricio-Chamberino Bodies Not Reportable 05/17/22 03:41 [place] Rings Not Reportable 05/17/22 03:41 [place] Cells Not Reportable 05/17/22 03:41 Bite Cells Not Reportable 05/17/22 03:41 Crenated Cell Not Reportable 05/17/22 03:41 Elliptocytes Not Reportable 05/17/22 03:41 Acanthocytes (Spur) Not Reportable 05/17/22 03:41 Rouleaux Not Reportable 05/17/22 03:41 Hemoglobin C Crystals Not Reportable 05/17/22 03:41 Schistocytes Not Reportable 05/17/22 03:41 Malaria parasites Not Reportable 05/17/22 03:41 [place] Bodies Not Reportable 05/17/22 03:41 Hem Pathologist Commnt No 05/17/22 03:41 PT 13.6 Sec. (12.2-14.9) 04/13/22 04:30 INR 0.94 (0.87-1.13) 04/13/22 04:30 APTT 35.7 Sec. (24.2-36.6) 04/07/22 03:51 ABG pH 7.385 pH Units (7.350-7.450) 05/19/22 06:10 ABG pCO2 51.9 mm Hg 05/19/22 06:10 ABG pO2 70.5 mm Hg (80.0-90.0) L 05/19/22 06:10 ABG HCO3 30.3 mmol/L (20.0-26.0) H 05/19/22 06:10 ABG O2 Saturation 97.6 % (95.0-99.0) 05/19/22 06:10 ABG O2 Content 8.1 (0.0-44) 05/19/22 06:10 ABG Base Excess 4.9 mmol/L (-2.0-3.0) H 05/19/22 06:10 ABG Hemoglobin 5.9 gm/dl (14.0-18.0) L 05/19/22 06:10 ABG Carboxyhemoglobin 1.5 % (0.0-5.0) 05/19/22 06:10 ABG Methemoglobin 0.4 % (0.0-1.5) 05/19/22 06:10 Oxyhemoglobin 95.8 % (95.0-99.0) 05/19/22 06:10 FiO2 55 % 05/19/22 06:10 Sodium 133 mmol/L (137-145) L 05/24/22 04:22 Potassium 5.1 mmol/L (3.6-5.0) H 05/24/22 04:22 Chloride 93.7 mmol/L (98-107) L 05/24/22 04:22 Carbon Dioxide 33 mmol/L (22-30) H 05/24/22 04:22 Anion Gap 11 mmol/L 05/24/22 04:22 BUN 14 mg/dL (9-20) 05/24/22 04:22 Creatinine < 0.2 mg/dL (0.8-1.3) L 05/24/22 04:22 Estimated GFR > 60 ml/min 05/24/22 04:22 BUN/Creatinine Ratio 70 % 05/24/22 04:22 Glucose 144 mg/dL (75-100) H 05/24/22 04:22 POC Glucose 135 mg/dL (70-105) H 05/23/22 14:13 Lactic Acid 1.90 mmol/L (0.7-2.0) 04/02/22 19:39 Calcium 8.3 mg/dL (8.4-10.2) L 05/24/22 04:22 Phosphorus 2.70 mg/dL (2.5-4.5) 05/22/22 05:49 Magnesium 1.80 mg/dL (1.7-2.3) 05/22/22 05:49 Total Bilirubin 0.80 mg/dL (0.1-1.2) 04/02/22 19:39 AST 15 units/L (5-40) 04/02/22 19:39 ALT 9 units/L (7-56) 04/02/22 19:39 Alkaline Phosphatase 43 units/L (35-129) 04/02/22 19:39 Total Creatine Kinase 46 units/L (55-170) L 04/08/22 17:47 CK-MB (CK-2) 2.6 ng/mL (0.0-4.0) 04/08/22 17:47 CK-MB (CK-2) Rel Index 5.6 (0-4) H 04/08/22 17:47 Troponin T 0.031 ng/mL (0.00-0.029) H 04/08/22 17:47 C-Reactive Protein 31.20 mg/dL (0.00-1.30) H 05/17/22 03:41 Total Protein 4.6 g/dL (6.3-8.2) L 04/02/22 19:39 Albumin 2.7 g/dL (3.9-5) L 04/02/22 19:39 Albumin/Globulin Ratio 1.4 % 04/02/22 19:39 Triglycerides 80 mg/dL (2-149) 04/02/22 19:39 Cholesterol 94 mg/dL (50-199) 04/02/22 19:39 LDL Cholesterol Direct 27 mg/dL (50-130) L 04/02/22 19:39 HDL Cholesterol 47 mg/dL (40-59) 04/02/22 19:39 Cholesterol/HDL Ratio 2.00 % 04/02/22 19:39 Procalcitonin 1.30 ng/mL (<0.15) 05/17/22 03:41 Urine Color Aracely (Yellow) 05/18/22 03:50 Urine Turbidity Clear (Clear) 05/18/22 03:50 Urine pH 5.0 (5.0-7.0) 05/18/22 03:50 Ur Specific [place] 1.030 (1.003-1.030) 05/18/22 03:50 Urine Protein 30 mg/dl mg/dL (Negative) 05/18/22 03:50 Urine Glucose (UA) Neg mg/dL (Negative) 05/18/22 03:50 Urine Ketones Tr mg/dL (Negative) 05/18/22 03:50 Urine Blood Neg (Negative) 05/18/22 03:50 Urine Nitrite Neg (Negative) 05/18/22 03:50 Urine Bilirubin Neg (Negative) 05/18/22 03:50 Urine Urobilinogen < 2.0 mg/dL (<2.0) 05/18/22 03:50 Ur Leukocyte Esterase Neg (Negative) 05/18/22 03:50 Urine WBC (Auto) 1.0 /HPF (0.0-6.0) 05/18/22 03:50 Urine RBC (Auto) 1.0 /HPF (0.0-6.0) 05/18/22 03:50 U Epithel Cells (Auto) 2.0 /HPF (0-13.0) 05/18/22 03:50 Urine Bacteria (Auto) 1+ /HPF (Negative) 05/18/22 03:50 Hyaline Casts 1 /LPF 04/05/22 17:45 Urine Mucus Few /HPF 05/18/22 03:50 Nasal Screen MRSA (PCR) Negative (Negative) 04/05/22 12:37 Vancomycin Trough 16.2 ug/mL (5.0-20.0) 05/20/22 20:41 Coronavirus (PCR) Negative (Negative) 04/07/22 14:52 Blood Type O POSITIVE 05/18/22 13:56 Antibody Screen Negative 05/18/22 13:56 Crossmatch See Detail 05/18/22 13:56 Microbiology: Microbiology 05/19/22 Unknown Buttock Surgical Biopsy Culture - Preliminary Escherichia Coli Gram Negative Deejay 05/19/22 Unknown Buttock Surgical Culture - Final Escherichia Coli Escherichia Coli#2 04/02/22 19:39 Peripheral/Venous Blood Culture - Final Bacillus Species Perez/IV: Voiding Method Condom Catheter Active Medications - Current Medications Current Medications: Generic Name Dose Route Start Last Admin Trade Name Freq PRN Reason Stop Dose Admin Acetaminophen 650 mg 04/02/22 23:53 05/24/22 00:52 Acetaminophen 325 Mg Tab PO 650 mg Q6H PRN Administration Pain MILD(1-3)/Fever >100.5/FAITH Acetylcysteine 200 mg 05/04/22 20:00 05/23/22 20:10 Acetylcysteine 20% 200 Mg/1 Ml *For Inhalation Use* INHALATION 200 mg Q12HRT SEGUNDO Administration Albuterol 2.5 mg 05/05/22 20:00 05/23/22 20:10 Albuterol 2.5 Mg/3 Ml Nebu IH 2.5 mg Q12HRT SEGUNDO Administration Lipase/Protease/Amylase 1 each 05/20/22 15:35 Lipase 10,500/Protease 25,000/Amylase 43,750 (Units) Dr Patterson FEEDTUBE PRN PRN For Clogged Feeding Tube Baclofen 10 mg 05/19/22 20:00 05/23/22 21:14 Baclofen 10 Mg Tab PO 10 mg TID SEGUNDO Administration Bisacodyl 10 mg 04/07/22 09:44 04/12/22 10:06 Bisacodyl 10 Mg Rect Supp ID 10 mg QDAY PRN Administration Constipation Docusate Sodium 100 mg 05/18/22 22:00 05/23/22 21:15 Docusate Sodium 100 Mg/10 Ml Oral Liqd FEEDTUBE Not Given BID SEGUNDO Famotidine 20 mg 04/06/22 10:00 05/23/22 21:13 Famotidine 20 Mg Tab FEEDTUBE 20 mg BID SEGUNDO Administration Fentanyl 50 mcg 04/04/22 15:56 05/19/22 21:24 Fentanyl 100 Mcg/2 Ml Inj IV 50 mcg Q2HR PRN Administration For CPOT of greater than 3 Heparin Sodium (Porcine) 5,000 unit 04/03/22 06:00 05/24/22 06:45 Heparin 5,000 Unit/1 Ml Vial SUB-Q 5,000 unit Q8HR SEGUNDO Administration Insulin Human Lispro 0 unit 05/05/22 06:00 05/23/22 21:34 Insulin Lispro 100 Unit/Ml SUB-Q Not Given Q8HR [facility] Protocol Magnesium Hydroxide 30 ml 04/02/22 23:53 Magnesium Hydroxide (Mom) Oral Liqd Udc PO Q4H PRN Constipation Metoprolol Tartrate 12.5 mg 05/03/22 13:00 05/24/22 06:33 Metoprolol Tartrate 25 Mg Tab FEEDTUBE 12.5 mg Q6HR SEGUNDO Administration Ondansetron HCl 4 mg 04/02/22 23:53 Ondansetron 4 Mg/2 Ml Inj IV Q8H PRN Nausea And Vomiting Polyethylene Glycol 17 gm 05/18/22 15:00 05/23/22 09:01 Polyethylene Glycol 3350 17 Gm Powder FEEDTUBE 17 gm QDAY SEGUNDO Administration Quetiapine Fumarate 50 mg 05/13/22 11:00 05/23/22 21:13 Quetiapine 100 Mg Tab FEEDTUBE 50 mg BID SEGUNDO Administration Scopolamine 1 each 05/12/22 09:00 05/21/22 09:06 Scopolamine Transdermal Patch 72 Hr TD 1 each Q3D SEGUNDO Administration Senna 8.8 mg 05/18/22 22:00 05/23/22 21:15 Sennosides Oral Liqd 8.8 Mg/5 Ml Oral Liqd FEEDTUBE Not Given QHS SEGUNDO Simple Syrup 15 ml 05/20/22 15:35 Simple Syrup 15 Ml FEEDTUBE PRN PRN Hypoglycemia Simple Syrup 30 ml 05/20/22 15:35 Simple Syrup 15 Ml FEEDTUBE PRN PRN Hypoglycemia Sodium Bicarbonate 325 mg 05/20/22 15:35 Sodium Bicarbonate 325 Mg Tab FEEDTUBE PRN PRN For Clogged Feeding Tube Sodium Chloride 10 ml 04/03/22 10:00 05/23/22 21:14 Sodium Chloride 0.9% 10 Ml Flush Syringe IV 10 ml BID SEGUNDO Administration Sodium Chloride 10 ml 04/02/22 23:53 05/16/22 05:10 Sodium Chloride 0.9% 10 Ml Flush Syringe IV 10 ml PRN PRN Administration LINE FLUSH Nutrition/Malnutrition Assess - Dietary Evaluation Nutrition/Malnutrition Findings: Nutrition Notes Start: 04/04/22 13:13 Freq: Status: Active Protocol: Document 05/20/22 15:20 COLLEEN (Rec: 05/20/22 15:36 COLLEEN [id number]) Nutrition Notes Initial or Follow up Brief Note Current Diagnosis Coronary Artery Disease, Decubitus(Pressure Ulcer), Sepsis,Respiratory Failure, Malnutrition Other Pertinent Diagnosis HCAP, ALS, Broncopneumonia, NSTEMI, Cardiomyopathy, ... Current Diet TF-Osmolite 1.5 Inderjit @ 55 ml/hr (since D 05/19). Height 5 ft 4.8 in Weight 48.6 kg Pedro Body Weight (kg) 61.27 BMI 17.9 Weight change and time frame No body weight change reported in 3 days. Weight Status Underweight Subjective/Other Information RD consult for routine F/U on TF tolerance/continuation. Pt resumed Osmolite yesterday, but order was not place in Chart, I will procede to place the order. Percent of energy/protein needs met: Prescribed TF-Osmolite 1.5 Inderjit @ 55 ml/hr provides for energy/protein needs (1,980 Kcal/83 g) during LOS, 102% Kcal; 100% AA. #1 Nutrition Diagnosis Inadequate oral intake Diagnosis Progress(for reassessment Continues documentation) Is patient on ventilator? Yes Is Patient Ambulatory and/or Out of Bed No REE-([facility] Jemi-confined to bed) [phone] Kcal/Kg value to use for calculation 40 Approximate Energy Requirements Using 1944 kcal/Kg Calculation Used for Recommendations Kcal/kg Additional Notes Protein: 1.5-2 g/Kg ABW; 73-98 g/day. Fluids: 1 ml/Kcal, or as per MD. Nutrition Intervention Nutrition Support: Continue TF-Osmolite 1.5 Inderjit @ 55 ml/hr. Flush: 150 ml water Q 4 hr, or as per MD. Kcal 1,980 Protein (gm) 83 Carbohydrates (gm) 269 Fat (gm) 65 Fluid (mL) 1,006 Fiber (gm) 0 % RDI: 102% Kcal; 100% AA. Goal #1 Provide at least 75% of energy /protein needs through Enteral Feeding during LOS. Follow-Up By: 05/27/22 Additional Comments Continue monitoring TF tolerance and BM. <NORM ARBOLEDA - Last Filed: 05/25/22 13:02> History Interval history: I saw and evaluated the patient. Discussed with the nurse practitioner and agree with their findings and plan as documented in this note. Hospitalist Physical - Constitutional Vitals: Temp Pulse Resp BP Pulse Ox 97.4 F L 102 H 13 108/67 96 05/25/22 12:00 05/25/22 12:00 05/25/22 12:00 05/25/22 12:00 05/25/22 12:00 HEART Score - HEART Score Troponin: Troponin T 0.031 ng/mL (0.00-0.029) H 04/08/22 17:47 Results - Labs CBC & Chem 7: 05/24/22 04:22 05/25/22 00:44 Labs: Laboratory Last Values WBC 10.9 K/mm3 (4.5-11.0) 05/24/22 04:22 RBC 2.89 M/mm3 (3.65-5.03) L 05/24/22 04:22 Hgb 7.9 gm/dl (11.8-15.2) L 05/24/22 04:22 Hct 24.9 % (35.5-45.6) L 05/24/22 04:22 MCV 86 fl (84-94) 05/24/22 04:22 MCH 28 pg (28-32) 05/24/22 04:22 MCHC 32 % (32-34) 05/24/22 04:22 RDW 17.0 % (13.2-15.2) H 05/24/22 04:22 Plt Count 339 K/mm3 (140-440) D 05/24/22 04:22 Lymph % (Auto) 8.1 % (13.4-35.0) L 05/09/22 15:15 Hunt % (Auto) 4.9 % (0.0-7.3) 05/09/22 15:15 Eos % (Auto) 0.6 % (0.0-4.3) 05/09/22 15:15 Baso % (Auto) 0.3 % (0.0-1.8) 05/09/22 15:15 Lymph # (Auto) 0.9 K/mm3 (1.2-5.4) L 05/09/22 15:15 Hunt # (Auto) 0.5 K/mm3 (0.0-0.8) 05/09/22 15:15 Eos # (Auto) 0.1 K/mm3 (0.0-0.4) 05/09/22 15:15 Baso # (Auto) 0.0 K/mm3 (0.0-0.1) 05/09/22 15:15 Add Manual Diff Complete 05/17/22 03:41 Total Counted 100 05/17/22 03:41 Seg Neutrophils % Splicing Machine Operator 05/17/22 03:41 Seg Neuts % (Manual) 96.0 % (40.0-70.0) H 05/17/22 03:41 Band Neutrophils % 0 % 05/17/22 03:41 Lymphocytes % (Manual) 1.0 % (13.4-35.0) L 05/17/22 03:41 Reactive Lymphs % (Man) 0 % 05/17/22 03:41 Monocytes % (Manual) 3.0 % (0.0-7.3) 05/17/22 03:41 Eosinophils % (Manual) 0 % (0.0-4.3) 05/17/22 03:41 Basophils % (Manual) 0 % (0.0-1.8) 05/17/22 03:41 Metamyelocytes % 0 % 05/17/22 03:41 Myelocytes % 0 % 05/17/22 03:41 Promyelocytes % 0 % 05/17/22 03:41 Blast Cells % 0 % 05/17/22 03:41 Nucleated RBC % Not Reportable 05/17/22 03:41 Seg Neutrophils # 9.2 K/mm3 (1.8-7.7) H 05/09/22 15:15 Seg Neutrophils # Man 15.6 K/mm3 (1.8-7.7) H 05/17/22 03:41 Band Neutrophils # 0.0 K/mm3 05/17/22 03:41 Lymphocytes # (Manual) 0.2 K/mm3 (1.2-5.4) L 05/17/22 03:41 Abs React Lymphs (Man) 0.0 K/mm3 05/17/22 03:41 Monocytes # (Manual) 0.5 K/mm3 (0.0-0.8) 05/17/22 03:41 Eosinophils # (Manual) 0.0 K/mm3 (0.0-0.4) 05/17/22 03:41 Basophils # (Manual) 0.0 K/mm3 (0.0-0.1) 05/17/22 03:41 Metamyelocytes # 0.0 K/mm3 05/17/22 03:41 Myelocytes # 0.0 K/mm3 05/17/22 03:41 Promyelocytes # 0.0 K/mm3 05/17/22 03:41 Blast Cells # 0.0 K/mm3 05/17/22 03:41 WBC Morphology Not Reportable 05/17/22 03:41 Hypersegmented Neuts Not Reportable 05/17/22 03:41 Hyposegmented Neuts Not Reportable 05/17/22 03:41 Hypogranular Neuts Not Reportable 05/17/22 03:41 Smudge Cells Not Reportable 05/17/22 03:41 Toxic Granulation Not Reportable 05/17/22 03:41 Toxic Vacuolation Not Reportable 05/17/22 03:41 Dohle Bodies Not Reportable 05/17/22 03:41 Pelger-Huet Anomaly Not Reportable 05/17/22 03:41 Terry Rods Not Reportable 05/17/22 03:41 Platelet Estimate Consistent w auto 05/17/22 03:41 Clumped Platelets Not Reportable 05/17/22 03:41 Plt Clumps, EDTA Not Reportable 05/17/22 03:41 Large Platelets Not Reportable 05/17/22 03:41 Giant Platelets Not Reportable 05/17/22 03:41 Platelet Satelliting Not Reportable 05/17/22 03:41 Plt Morphology Comment Not Reportable 05/17/22 03:41 RBC Morphology Not Reportable 05/17/22 03:41 Dimorphic RBCs Not Reportable 05/17/22 03:41 Polychromasia Not Reportable 05/17/22 03:41 Hypochromasia Not Reportable 05/17/22 03:41 Poikilocytosis Not Reportable 05/17/22 03:41 Anisocytosis 1+ 05/17/22 03:41 Microcytosis Not Reportable 05/17/22 03:41 Macrocytosis Not Reportable 05/17/22 03:41 Spherocytes Not Reportable 05/17/22 03:41 Pappenheimer Bodies Not Reportable 05/17/22 03:41 Sickle Cells Not Reportable 05/17/22 03:41 Target Cells Not Reportable 05/17/22 03:41 Tear Drop Cells Not Reportable 05/17/22 03:41 Ovalocytes Not Reportable 05/17/22 03:41 Helmet Cells Not Reportable 05/17/22 03:41 Patricio-Chamberino Bodies Not Reportable 05/17/22 03:41 [place] Rings Not Reportable 05/17/22 03:41 [place] Cells Not Reportable 05/17/22 03:41 Bite Cells Not Reportable 05/17/22 03:41 Crenated Cell Not Reportable 05/17/22 03:41 Elliptocytes Not Reportable 05/17/22 03:41 Acanthocytes (Spur) Not Reportable 05/17/22 03:41 Rouleaux Not Reportable 05/17/22 03:41 Hemoglobin C Crystals Not Reportable 05/17/22 03:41 Schistocytes Not Reportable 05/17/22 03:41 Malaria parasites Not Reportable 05/17/22 03:41 [place] Bodies Not Reportable 05/17/22 03:41 Hem Pathologist Commnt No 05/17/22 03:41 PT 13.6 Sec. (12.2-14.9) 04/13/22 04:30 INR 0.94 (0.87-1.13) 04/13/22 04:30 APTT 35.7 Sec. (24.2-36.6) 04/07/22 03:51 ABG pH 7.385 pH Units (7.350-7.450) 05/19/22 06:10 ABG pCO2 51.9 mm Hg 05/19/22 06:10 ABG pO2 70.5 mm Hg (80.0-90.0) L 05/19/22 06:10 ABG HCO3 30.3 mmol/L (20.0-26.0) H 05/19/22 06:10 ABG O2 Saturation 97.6 % (95.0-99.0) 05/19/22 06:10 ABG O2 Content 8.1 (0.0-44) 05/19/22 06:10 ABG Base Excess 4.9 mmol/L (-2.0-3.0) H 05/19/22 06:10 ABG Hemoglobin 5.9 gm/dl (14.0-18.0) L 05/19/22 06:10 ABG Carboxyhemoglobin 1.5 % (0.0-5.0) 05/19/22 06:10 ABG Methemoglobin 0.4 % (0.0-1.5) 05/19/22 06:10 Oxyhemoglobin 95.8 % (95.0-99.0) 05/19/22 06:10 FiO2 55 % 05/19/22 06:10 Sodium 139 mmol/L (137-145) 05/25/22 00:44 Potassium 4.6 mmol/L (3.6-5.0) 05/25/22 00:44 Chloride 94.8 mmol/L (98-107) L 05/25/22 00:44 Carbon Dioxide 35 mmol/L (22-30) H 05/25/22 00:44 Anion Gap 14 mmol/L 05/25/22 00:44 BUN 17 mg/dL (9-20) 05/25/22 00:44 Creatinine < 0.2 mg/dL (0.8-1.3) L 05/25/22 00:44 Estimated GFR > 60 ml/min 05/25/22 00:44 BUN/Creatinine Ratio 85 % 05/25/22 00:44 Glucose 146 mg/dL (75-100) H 05/25/22 00:44 POC Glucose 142 mg/dL (70-105) H 05/25/22 05:41 Lactic Acid 1.90 mmol/L (0.7-2.0) 04/02/22 19:39 Calcium 8.4 mg/dL (8.4-10.2) 05/25/22 00:44 Phosphorus 2.70 mg/dL (2.5-4.5) 05/22/22 05:49 Magnesium 1.80 mg/dL (1.7-2.3) 05/22/22 05:49 Total Bilirubin 0.80 mg/dL (0.1-1.2) 04/02/22 19:39 AST 15 units/L (5-40) 04/02/22 19:39 ALT 9 units/L (7-56) 04/02/22 19:39 Alkaline Phosphatase 43 units/L (35-129) 04/02/22 19:39 Total Creatine Kinase 46 units/L (55-170) L 04/08/22 17:47 CK-MB (CK-2) 2.6 ng/mL (0.0-4.0) 04/08/22 17:47 CK-MB (CK-2) Rel Index 5.6 (0-4) H 04/08/22 17:47 Troponin T 0.031 ng/mL (0.00-0.029) H 04/08/22 17:47 C-Reactive Protein 31.20 mg/dL (0.00-1.30) H 05/17/22 03:41 Total Protein 4.6 g/dL (6.3-8.2) L 04/02/22 19:39 Albumin 2.7 g/dL (3.9-5) L 04/02/22 19:39 Albumin/Globulin Ratio 1.4 % 04/02/22 19:39 Triglycerides 80 mg/dL (2-149) 04/02/22 19:39 Cholesterol 94 mg/dL (50-199) 04/02/22 19:39 LDL Cholesterol Direct 27 mg/dL (50-130) L 04/02/22 19:39 HDL Cholesterol 47 mg/dL (40-59) 04/02/22 19:39 Cholesterol/HDL Ratio 2.00 % 04/02/22 19:39 Procalcitonin 1.30 ng/mL (<0.15) 05/17/22 03:41 Urine Color Aracely (Yellow) 05/18/22 03:50 Urine Turbidity Clear (Clear) 05/18/22 03:50 Urine pH 5.0 (5.0-7.0) 05/18/22 03:50 Ur Specific [place] 1.030 (1.003-1.030) 05/18/22 03:50 Urine Protein 30 mg/dl mg/dL (Negative) 05/18/22 03:50 Urine Glucose (UA) Neg mg/dL (Negative) 05/18/22 03:50 Urine Ketones Tr mg/dL (Negative) 05/18/22 03:50 Urine Blood Neg (Negative) 05/18/22 03:50 Urine Nitrite Neg (Negative) 05/18/22 03:50 Urine Bilirubin Neg (Negative) 05/18/22 03:50 Urine Urobilinogen < 2.0 mg/dL (<2.0) 05/18/22 03:50 Ur Leukocyte Esterase Neg (Negative) 05/18/22 03:50 Urine WBC (Auto) 1.0 /HPF (0.0-6.0) 05/18/22 03:50 Urine RBC (Auto) 1.0 /HPF (0.0-6.0) 05/18/22 03:50 U Epithel Cells (Auto) 2.0 /HPF (0-13.0) 05/18/22 03:50 Urine Bacteria (Auto) 1+ /HPF (Negative) 05/18/22 03:50 Hyaline Casts 1 /LPF 04/05/22 17:45 Urine Mucus Few /HPF 05/18/22 03:50 Nasal Screen MRSA (PCR) Negative (Negative) 04/05/22 12:37 Vancomycin Trough 16.2 ug/mL (5.0-20.0) 05/20/22 20:41 Coronavirus (PCR) Negative (Negative) 04/07/22 14:52 Blood Type O POSITIVE 05/18/22 13:56 Antibody Screen Negative 05/18/22 13:56 Crossmatch See Detail 05/18/22 13:56 Microbiology: Microbiology 05/19/22 Unknown Buttock Surgical Biopsy Culture - Final Escherichia Coli Pseudomonas Aeruginosa Perez/IV: Voiding Method Condom Catheter Active Medications - Current Medications Current Medications: Generic Name Dose Route Start Last Admin Trade Name Freq PRN Reason Stop Dose Admin Acetaminophen 650 mg 04/02/22 23:53 05/24/22 00:52 Acetaminophen 325 Mg Tab PO 650 mg Q6H PRN Administration Pain MILD(1-3)/Fever >100.5/FAITH Acetylcysteine 200 mg 05/04/22 20:00 05/25/22 08:18 Acetylcysteine 20% 200 Mg/1 Ml *For Inhalation Use* INHALATION 200 mg Q12HRT SEGUNDO Administration Albuterol 2.5 mg 05/05/22 20:00 05/25/22 08:17 Albuterol 2.5 Mg/3 Ml Nebu IH 2.5 mg Q12HRT SEGUNDO Administration Lipase/Protease/Amylase 1 each 05/20/22 15:35 Lipase 10,500/Protease 25,000/Amylase 43,750 (Units) Dr Patterson FEEDTUBE PRN PRN For Clogged Feeding Tube Baclofen 10 mg 05/19/22 20:00 05/25/22 09:26 Baclofen 10 Mg Tab PO 10 mg TID SEGUNDO Administration Bisacodyl 10 mg 04/07/22 09:44 04/12/22 10:06 Bisacodyl 10 Mg Rect Supp ID 10 mg QDAY PRN Administration Constipation Docusate Sodium 100 mg 05/18/22 22:00 05/24/22 21:10 Docusate Sodium 100 Mg/10 Ml Oral Liqd FEEDTUBE Not Given BID SEGUNDO Famotidine 20 mg 04/06/22 10:00 05/25/22 09:26 Famotidine 20 Mg Tab FEEDTUBE 20 mg BID SEGUNDO Administration Fentanyl 50 mcg 04/04/22 15:56 05/19/22 21:24 Fentanyl 100 Mcg/2 Ml Inj IV 50 mcg Q2HR PRN Administration For CPOT of greater than 3 Heparin Sodium (Porcine) 5,000 unit 04/03/22 06:00 05/25/22 05:45 Heparin 5,000 Unit/1 Ml Vial SUB-Q 5,000 unit Q8HR SEGUNDO Administration Insulin Human Lispro 0 unit 05/05/22 06:00 05/25/22 05:43 Insulin Lispro 100 Unit/Ml SUB-Q Not Given Q8HR [facility] Protocol Magnesium Hydroxide 30 ml 04/02/22 23:53 Magnesium Hydroxide (Mom) Oral Liqd Udc PO Q4H PRN Constipation Metoprolol Tartrate 12.5 mg 05/03/22 13:00 05/25/22 05:45 Metoprolol Tartrate 25 Mg Tab FEEDTUBE 12.5 mg Q6HR SEGUNDO Administration Ondansetron HCl 4 mg 04/02/22 23:53 Ondansetron 4 Mg/2 Ml Inj IV Q8H PRN Nausea And Vomiting Polyethylene Glycol 17 gm 05/18/22 15:00 05/24/22 12:30 Polyethylene Glycol 3350 17 Gm Powder FEEDTUBE Not Given QDAY SEGUNDO Quetiapine Fumarate 50 mg 05/13/22 11:00 05/25/22 09:26 Quetiapine 100 Mg Tab FEEDTUBE 50 mg BID SEGUNDO Administration Scopolamine 1 each 05/12/22 09:00 05/24/22 09:35 Scopolamine Transdermal Patch 72 Hr TD 1 each Q3D SEGUNDO Administration Senna 8.8 mg 05/18/22 22:00 05/24/22 21:10 Sennosides Oral Liqd 8.8 Mg/5 Ml Oral Liqd FEEDTUBE Not Given QHS SEGUNDO Simple Syrup 15 ml 05/20/22 15:35 Simple Syrup 15 Ml FEEDTUBE PRN PRN Hypoglycemia Simple Syrup 30 ml 05/20/22 15:35 Simple Syrup 15 Ml FEEDTUBE PRN PRN Hypoglycemia Sodium Bicarbonate 325 mg 05/20/22 15:35 Sodium Bicarbonate 325 Mg Tab FEEDTUBE PRN PRN For Clogged Feeding Tube Sodium Chloride 10 ml 04/03/22 10:00 05/25/22 09:27 Sodium Chloride 0.9% 10 Ml Flush Syringe IV 10 ml BID SEGUNDO Administration Sodium Chloride 10 ml 04/02/22 23:53 05/16/22 05:10 Sodium Chloride 0.9% 10 Ml Flush Syringe IV 10 ml PRN PRN Administration LINE FLUSH Nutrition/Malnutrition Assess - Dietary Evaluation Nutrition/Malnutrition Findings: Nutrition Notes Start: 04/04/22 13:13 Freq: Status: Active Protocol: Document 05/20/22 15:20 COLLEEN (Rec: 05/20/22 15:36 COLLEEN [id number]) Nutrition Notes Initial or Follow up Brief Note Current Diagnosis Coronary Artery Disease, Decubitus(Pressure Ulcer), Sepsis,Respiratory Failure, Malnutrition Other Pertinent Diagnosis HCAP, ALS, Broncopneumonia, NSTEMI, Cardiomyopathy, ... Current Diet TF-Osmolite 1.5 Inderjit @ 55 ml/hr (since D 05/19). Height 5 ft 4.8 in Weight 48.6 kg Pedro Body Weight (kg) 61.27 BMI 17.9 Weight change and time frame No body weight change reported in 3 days. Weight Status Underweight Subjective/Other Information RD consult for routine F/U on TF tolerance/continuation. Pt resumed Osmolite yesterday, but order was not place in Chart, I will procede to place the order. Percent of energy/protein needs met: Prescribed TF-Osmolite 1.5 Inderjit @ 55 ml/hr provides for energy/protein needs (1,980 Kcal/83 g) during LOS, 102% Kcal; 100% AA. #1 Nutrition Diagnosis Inadequate oral intake Diagnosis Progress(for reassessment Continues documentation) Is patient on ventilator? Yes Is Patient Ambulatory and/or Out of Bed No REE-([facility]-confined to bed) [phone] Kcal/Kg value to use for calculation 40 Approximate Energy Requirements Using 1944 kcal/Kg Calculation Used for Recommendations Kcal/kg Additional Notes Protein: 1.5-2 g/Kg ABW; 73-98 g/day. Fluids: 1 ml/Kcal, or as per MD. Nutrition Intervention Nutrition Support: Continue TF-Osmolite 1.5 Inderjit @ 55 ml/hr. Flush: 150 ml water Q 4 hr, or as per MD. Kcal 1,980 Protein (gm) 83 Carbohydrates (gm) 269 Fat (gm) 65 Fluid (mL) 1,006 Fiber (gm) 0 % RDI: 102% Kcal; 100% AA. Goal #1 Provide at least 75% of energy /protein needs through Enteral Feeding during LOS. Follow-Up By: 05/27/22 Additional Comments Continue monitoring TF tolerance and BM.
--- NOTE | 2022-05-24 09:31 | Progress Note ---
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 No need for intervention at this time Continue on hospital ventilator until discharge planning Will need to go back to OR in a week per General surgery -Continue current antibiotics, ID following -Follow up cultures, trend temperature curve and WCC -keep K >3.5; Mg at 2 and Phos >2.5 to optimize respiratory muscle function -Trach care, airway clearance, -continue with bronchodilators and chest PT -Continue with mucolytics and chest PT -Titrate supplemental oxygen to keep SpO2 89-92% -VAP bundle addressed, aspiration precautions HOB >40 -Monitoring renal function, hemodynamics and electrolyte profile -Accuchecks with glycemic control. target blood glucose 140-180 mg/dL. Avoid hypoglycemia -Continue enteric nutritional support, bowel regimen -VTE prophylaxis- Heparin -Avoid nephrotoxins and renally dose all medications -Stress ulcer prophylaxis- Famotidine -Mobility, frequent turning, off loading per facility protocol to prevent pressure ulcers -Maintain sleep wake cycle, avoid benzodiazepines. -Limit delirium CONDITION:CRITICAL PROGNOSIS: GUARDED CODE STATUS; FULL CODE The high probability of a clinically significant, sudden or life threatening deterioration of the respiratory, cardiovascular, neurology system required my full and direct attention, intervention and personal management. The aggregate critical care time was [33] minutes. 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 Vitals, labs, medications, chart and imaging reviewed. Discussed with respiratory and nursing care staff. s/p trach and PEG. On Hospital vent, increasing FIO2 and PEEP No fevers s/p wound debridement today- Objective Vital Signs - 12hr 05/23/22 05/23/22 05/23/22 21:51 22:00 23:00 Temperature Pulse Rate 133 H 134 H 120 H Pulse Rate [ From Monitor] Respiratory 16 26 H 14 Rate Blood Pressure 133/89 132/79 111/70 O2 Sat by Pulse 92 92 95 Oximetry O2 Sat by Pulse Oximetry [ Assessment] 05/24/22 05/24/22 05/24/22 00:00 00:06 00:51 Temperature 99.6 F Pulse Rate 129 H 133 H 124 H Pulse Rate [ 132 H From Monitor] Respiratory 18 5 L Rate Blood Pressure 111/70 107/71 107/71 O2 Sat by Pulse 97 95 Oximetry O2 Sat by Pulse 95 Oximetry [ Assessment] 05/24/22 05/24/22 05/24/22 01:00 02:00 03:00 Temperature Pulse Rate 126 H 109 H 104 H Pulse Rate [ From Monitor] Respiratory 16 14 14 Rate Blood Pressure 103/70 108/63 101/64 O2 Sat by Pulse 91 93 93 Oximetry O2 Sat by Pulse Oximetry [ Assessment] 05/24/22 05/24/22 05/24/22 04:00 04:45 05:00 Temperature 99.2 F Pulse Rate 97 H 118 H 117 H Pulse Rate [ 97 H From Monitor] Respiratory 14 2 L 22 Rate Blood Pressure 108/64 117/72 117/72 O2 Sat by Pulse 98 95 91 Oximetry O2 Sat by Pulse Oximetry [ Assessment] 05/24/22 05/24/22 05/24/22 06:00 06:33 07:00 Temperature Pulse Rate 120 H 122 H 105 H Pulse Rate [ From Monitor] Respiratory 36 H 19 Rate Blood Pressure 107/74 107/74 102/67 O2 Sat by Pulse 93 95 Oximetry O2 Sat by Pulse Oximetry [ Assessment] 05/24/22 05/24/22 08:00 08:15 Temperature 99.3 F Pulse Rate 102 H Pulse Rate [ 105 H From Monitor] Respiratory 16 Rate Blood Pressure 109/68 O2 Sat by Pulse 96 97 Oximetry O2 Sat by Pulse Oximetry [ Assessment] Constitutional: no acute distress, alert, other (resting in bed with mildly increased respiratory effort at rest) Eyes: non-icteric ENT: oropharynx moist, other (+ midline tracheostomy to home vent) Neck: supple, no lymphadenopathy, no JVD Effort: mildly labored Ascultation: Bilateral: diminished breath sounds (bases), rhonchi Percussion: Bilateral: not dull Cardiovascular: regular rate and rhythm, other (S1,S2) Gastrointestinal: normoactive bowel sounds, soft, non-tender, non-distended Integumentary: normal, decubitus ulcer (see wound care pictures- wound vac) Extremities: no cyanosis, no edema, pink and warm, pulses normal Neurologic: pupils equal and round, other (functional quadriplegia) Psychiatric: mood appropriate, affect normal CBC and BMP: 05/24/22 04:22 05/24/22 04:22 ABG, PT/INR, D-dimer: ABG ABG pH 7.385 pH Units (7.350-7.450) 05/19/22 06:10 ABG pCO2 51.9 mm Hg 05/19/22 06:10 ABG pO2 70.5 mm Hg (80.0-90.0) L 05/19/22 06:10 ABG O2 Saturation 97.6 % (95.0-99.0) 05/19/22 06:10 PT/INR, D-dimer PT 13.6 Sec. (12.2-14.9) 04/13/22 04:30 INR 0.94 (0.87-1.13) 04/13/22 04:30 Abnormal lab findings: Abnormal Labs 04/02/22 04/02/22 04/02/22 19:39 19:39 19:39 WBC 14.3 H RBC Hgb Hct MCV 96 H MCHC RDW Plt Count 104 L Lymph % (Auto) Gaines % (Auto) Lymph # (Auto) Gaines # (Auto) Seg Neutrophils % Seg Neuts % (Manual) 94.0 H Lymphocytes % (Manual) 1.0 L Seg Neutrophils # Seg Neutrophils # Man 13.4 H Lymphocytes # (Manual) 0.1 L PT 15.9 H INR 1.14 H ABG pH ABG pO2 ABG HCO3 ABG O2 Saturation ABG Base Excess ABG Hemoglobin Oxyhemoglobin Sodium 151 H Potassium Chloride Carbon Dioxide BUN Creatinine 0.5 L Glucose POC Glucose Calcium 8.2 L Phosphorus Magnesium 1.60 L Total Creatine Kinase CK-MB (CK-2) Rel Index Troponin T 0.048 H C-Reactive Protein Total Protein 4.6 L Albumin 2.7 L LDL Cholesterol Direct 27 L Urine WBC (Auto) Crossmatch 04/02/22 04/03/22 04/03/22 19:42 05:14 06:30 WBC RBC Hgb Hct MCV MCHC RDW Plt Count Lymph % (Auto) Gaines % (Auto) Lymph # (Auto) Gaines # (Auto) Seg Neutrophils % Seg Neuts % (Manual) Lymphocytes % (Manual) Seg Neutrophils # Seg Neutrophils # Man Lymphocytes # (Manual) PT INR ABG pH 7.471 H 7.496 H ABG pO2 47.8 L 91.0 H ABG HCO3 30.6 H ABG O2 Saturation 94.4 L ABG Base Excess 6.2 H ABG Hemoglobin 11.0 L 12.8 L Oxyhemoglobin 93.1 L Sodium 149 H Potassium 3.4 L Chloride Carbon Dioxide BUN Creatinine 0.4 L Glucose POC Glucose Calcium Phosphorus Magnesium Total Creatine Kinase CK-MB (CK-2) Rel Index Troponin T C-Reactive Protein Total Protein Albumin LDL Cholesterol Direct Urine WBC (Auto) Crossmatch 04/04/22 04/04/22 04/04/22 04:18 04:18 05:50 WBC 11.8 H RBC Hgb Hct MCV MCHC RDW Plt Count 132 L Lymph % (Auto) Gaines % (Auto) Lymph # (Auto) Gaines # (Auto) Seg Neutrophils % Seg Neuts % (Manual) Lymphocytes % (Manual) Seg Neutrophils # Seg Neutrophils # Man Lymphocytes # (Manual) PT INR ABG pH 7.517 H ABG pO2 115.5 H ABG HCO3 29.9 H ABG O2 Saturation ABG Base Excess 6.7 H ABG Hemoglobin 12.3 L Oxyhemoglobin Sodium Potassium 3.5 L Chloride Carbon Dioxide 31 H BUN Creatinine 0.3 L Glucose 153 H POC Glucose Calcium Phosphorus 1.40 L Magnesium 1.50 L Total Creatine Kinase CK-MB (CK-2) Rel Index Troponin T C-Reactive Protein 31.60 H Total Protein Albumin LDL Cholesterol Direct Urine WBC (Auto) Crossmatch 04/05/22 04/05/22 04/05/22 02:50 05:25 11:28 WBC RBC Hgb Hct MCV MCHC RDW Plt Count Lymph % (Auto) Gaines % (Auto) Lymph # (Auto) Gaines # (Auto) Seg Neutrophils % Seg Neuts % (Manual) Lymphocytes % (Manual) Seg Neutrophils # Seg Neutrophils # Man Lymphocytes # (Manual) PT INR ABG pH 7.455 H ABG pO2 50.7 L ABG HCO3 30.5 H ABG O2 Saturation 89.4 L ABG Base Excess 5.9 H ABG Hemoglobin 11.8 L Oxyhemoglobin 88.2 L Sodium Potassium Chloride Carbon Dioxide 32 H BUN Creatinine 0.2 L Glucose 110 H POC Glucose 124 H Calcium 7.9 L Phosphorus Magnesium Total Creatine Kinase CK-MB (CK-2) Rel Index Troponin T C-Reactive Protein Total Protein Albumin LDL Cholesterol Direct Urine WBC (Auto) Crossmatch 04/05/22 04/05/22 04/06/22 17:45 Unknown 04:00 WBC RBC 3.55 L Hgb 11.1 L 11.5 L Hct 33.2 L 35.1 L MCV MCHC RDW Plt Count 113 L 114 L Lymph % (Auto) Gaines % (Auto) Lymph # (Auto) Gaines # (Auto) Seg Neutrophils % Seg Neuts % (Manual) Lymphocytes % (Manual) Seg Neutrophils # Seg Neutrophils # Man Lymphocytes # (Manual) PT INR ABG pH ABG pO2 ABG HCO3 ABG O2 Saturation ABG Base Excess ABG Hemoglobin Oxyhemoglobin Sodium Potassium Chloride Carbon Dioxide BUN Creatinine Glucose POC Glucose Calcium Phosphorus Magnesium Total Creatine Kinase CK-MB (CK-2) Rel Index Troponin T C-Reactive Protein Total Protein Albumin LDL Cholesterol Direct Urine WBC (Auto) 8.0 H Crossmatch 04/06/22 04/06/22 04/07/22 04:00 08:30 00:04 WBC RBC Hgb Hct MCV MCHC RDW Plt Count Lymph % (Auto) Gaines % (Auto) Lymph # (Auto) Gaines # (Auto) Seg Neutrophils % Seg Neuts % (Manual) Lymphocytes % (Manual) Seg Neutrophils # Seg Neutrophils # Man Lymphocytes # (Manual) PT INR ABG pH ABG pO2 60.8 L ABG HCO3 30.5 H ABG O2 Saturation 93.3 L ABG Base Excess 4.9 H ABG Hemoglobin 12.4 L Oxyhemoglobin 92.1 L Sodium Potassium 3.0 L Chloride Carbon Dioxide BUN Creatinine < 0.2 L Glucose 130 H POC Glucose 117 H Calcium 8.1 L Phosphorus Magnesium Total Creatine Kinase CK-MB (CK-2) Rel Index Troponin T C-Reactive Protein Total Protein Albumin LDL Cholesterol Direct Urine WBC (Auto) Crossmatch 04/07/22 04/07/22 04/07/22 03:51 03:51 03:51 WBC 14.6 H RBC 3.57 L Hgb 11.1 L Hct 33.2 L MCV MCHC RDW Plt Count 118 L Lymph % (Auto) 4.3 L Gaines % (Auto) 8.8 H Lymph # (Auto) 0.6 L Gaines # (Auto) 1.3 H Seg Neutrophils % 86.6 H Seg Neuts % (Manual) Lymphocytes % (Manual) Seg Neutrophils # 12.7 H Seg Neutrophils # Man Lymphocytes # (Manual) PT 15.2 H INR ABG pH ABG pO2 ABG HCO3 ABG O2 Saturation ABG Base Excess ABG Hemoglobin Oxyhemoglobin Sodium 133 L Potassium Chloride 96.0 L Carbon Dioxide 31 H BUN Creatinine 0.2 L Glucose 130 H POC Glucose Calcium 8.0 L Phosphorus Magnesium Total Creatine Kinase CK-MB (CK-2) Rel Index Troponin T C-Reactive Protein Total Protein Albumin LDL Cholesterol Direct Urine WBC (Auto) Crossmatch 04/07/22 04/07/22 04/08/22 04:25 09:10 04:49 WBC 16.1 H RBC 3.54 L Hgb 10.9 L Hct 33.3 L MCV MCHC RDW Plt Count Lymph % (Auto) Gaines % (Auto) Lymph # (Auto) Gaines # (Auto) Seg Neutrophils % Seg Neuts % (Manual) Lymphocytes % (Manual) Seg Neutrophils # Seg Neutrophils # Man Lymphocytes # (Manual) PT INR ABG pH ABG pO2 71.0 L 63.4 L ABG HCO3 31.5 H 40.0 H ABG O2 Saturation 94.9 L ABG Base Excess 5.9 H 13.6 H ABG Hemoglobin 11.3 L 9.0 L Oxyhemoglobin 93.6 L Sodium Potassium Chloride Carbon Dioxide BUN Creatinine Glucose POC Glucose Calcium Phosphorus Magnesium Total Creatine Kinase CK-MB (CK-2) Rel Index Troponin T C-Reactive Protein Total Protein Albumin LDL Cholesterol Direct Urine WBC (Auto) Crossmatch 04/08/22 04/08/22 04/08/22 04:49 09:53 10:25 WBC RBC Hgb Hct MCV MCHC RDW Plt Count Lymph % (Auto) Gaines % (Auto) Lymph # (Auto) Gaines # (Auto) Seg Neutrophils % Seg Neuts % (Manual) Lymphocytes % (Manual) Seg Neutrophils # Seg Neutrophils # Man Lymphocytes # (Manual) PT INR ABG pH ABG pO2 ABG HCO3 34.7 H ABG O2 Saturation ABG Base Excess 7.9 H ABG Hemoglobin 11.0 L Oxyhemoglobin Sodium 136 L Potassium Chloride 97.7 L Carbon Dioxide 33 H BUN Creatinine 0.2 L Glucose 155 H POC Glucose Calcium Phosphorus Magnesium Total Creatine Kinase CK-MB (CK-2) Rel Index Troponin T 0.030 H C-Reactive Protein Total Protein Albumin LDL Cholesterol Direct Urine WBC (Auto) Crossmatch 04/08/22 04/08/22 04/08/22 11:19 17:47 18:06 WBC RBC Hgb Hct MCV MCHC RDW Plt Count Lymph % (Auto) Gaines % (Auto) Lymph # (Auto) Gaines # (Auto) Seg Neutrophils % Seg Neuts % (Manual) Lymphocytes % (Manual) Seg Neutrophils # Seg Neutrophils # Man Lymphocytes # (Manual) PT INR ABG pH ABG pO2 ABG HCO3 ABG O2 Saturation ABG Base Excess ABG Hemoglobin Oxyhemoglobin Sodium Potassium Chloride Carbon Dioxide BUN Creatinine Glucose POC Glucose 121 H Calcium Phosphorus Magnesium Total Creatine Kinase 31 L 46 L CK-MB (CK-2) Rel Index 6.4 H 5.6 H Troponin T 0.030 H 0.031 H C-Reactive Protein Total Protein Albumin LDL Cholesterol Direct Urine WBC (Auto) Crossmatch 04/09/22 04/09/22 04/09/22 04:35 04:35 11:24 WBC 11.5 H RBC 3.16 L Hgb 9.9 L Hct 29.4 L MCV MCHC RDW Plt Count 131 L Lymph % (Auto) Gaines % (Auto) Lymph # (Auto) Gaines # (Auto) Seg Neutrophils % Seg Neuts % (Manual) Lymphocytes % (Manual) Seg Neutrophils # Seg Neutrophils # Man Lymphocytes # (Manual) PT INR ABG pH ABG pO2 ABG HCO3 ABG O2 Saturation ABG Base Excess ABG Hemoglobin Oxyhemoglobin Sodium Potassium Chloride 97.1 L Carbon Dioxide 35 H BUN Creatinine < 0.2 L Glucose 145 H POC Glucose 147 H Calcium Phosphorus Magnesium Total Creatine Kinase CK-MB (CK-2) Rel Index Troponin T C-Reactive Protein Total Protein Albumin LDL Cholesterol Direct Urine WBC (Auto) Crossmatch 04/09/22 04/09/22 04/09/22 13:00 17:32 23:48 WBC RBC Hgb Hct MCV MCHC RDW Plt Count Lymph % (Auto) Gaines % (Auto) Lymph # (Auto) Gaines # (Auto) Seg Neutrophils % Seg Neuts % (Manual) Lymphocytes % (Manual) Seg Neutrophils # Seg Neutrophils # Man Lymphocytes # (Manual) PT INR ABG pH ABG pO2 66.6 L ABG HCO3 38.2 H ABG O2 Saturation 94.4 L ABG Base Excess 10.7 H ABG Hemoglobin 10.7 L Oxyhemoglobin 92.8 L Sodium Potassium Chloride Carbon Dioxide BUN Creatinine Glucose POC Glucose 143 H 114 H Calcium Phosphorus Magnesium Total Creatine Kinase CK-MB (CK-2) Rel Index Troponin T C-Reactive Protein Total Protein Albumin LDL Cholesterol Direct Urine WBC (Auto) Crossmatch 04/10/22 04/10/22 04/10/22 04:48 04:48 05:34 WBC RBC 2.91 L Hgb 9.1 L Hct 27.7 L MCV 95 H MCHC RDW Plt Count Lymph % (Auto) Gaines % (Auto) Lymph # (Auto) Gaines # (Auto) Seg Neutrophils % Seg Neuts % (Manual) Lymphocytes % (Manual) Seg Neutrophils # Seg Neutrophils # Man Lymphocytes # (Manual) PT INR ABG pH ABG pO2 ABG HCO3 ABG O2 Saturation ABG Base Excess ABG Hemoglobin Oxyhemoglobin Sodium Potassium Chloride 95.7 L Carbon Dioxide 38 H BUN Creatinine < 0.2 L Glucose 118 H POC Glucose 127 H Calcium Phosphorus Magnesium Total Creatine Kinase CK-MB (CK-2) Rel Index Troponin T C-Reactive Protein Total Protein Albumin LDL Cholesterol Direct Urine WBC (Auto) Crossmatch 04/10/22 04/11/22 04/11/22 23:10 04:15 04:15 WBC 17.2 H RBC 2.98 L Hgb 9.2 L Hct 27.9 L MCV MCHC RDW Plt Count Lymph % (Auto) Gaines % (Auto) Lymph # (Auto) Gaines # (Auto) Seg Neutrophils % Seg Neuts % (Manual) Lymphocytes % (Manual) Seg Neutrophils # Seg Neutrophils # Man Lymphocytes # (Manual) PT INR ABG pH ABG pO2 ABG HCO3 ABG O2 Saturation ABG Base Excess ABG Hemoglobin Oxyhemoglobin Sodium Potassium Chloride 96.1 L Carbon Dioxide 35 H BUN Creatinine < 0.2 L Glucose 138 H POC Glucose 106 H Calcium 8.3 L Phosphorus Magnesium Total Creatine Kinase CK-MB (CK-2) Rel Index Troponin T C-Reactive Protein Total Protein Albumin LDL Cholesterol Direct Urine WBC (Auto) Crossmatch 04/11/22 04/11/22 04/11/22 05:31 13:18 16:20 WBC RBC Hgb Hct MCV MCHC RDW Plt Count Lymph % (Auto) Gaines % (Auto) Lymph # (Auto) Gaines # (Auto) Seg Neutrophils % Seg Neuts % (Manual) Lymphocytes % (Manual) Seg Neutrophils # Seg Neutrophils # Man Lymphocytes # (Manual) PT INR ABG pH ABG pO2 57.8 L ABG HCO3 40.5 H ABG O2 Saturation 90.6 L ABG Base Excess 12.6 H ABG Hemoglobin 10.5 L Oxyhemoglobin 89.0 L Sodium Potassium Chloride Carbon Dioxide BUN Creatinine Glucose POC Glucose 129 H 132 H Calcium Phosphorus Magnesium Total Creatine Kinase CK-MB (CK-2) Rel Index Troponin T C-Reactive Protein Total Protein Albumin LDL Cholesterol Direct Urine WBC (Auto) Crossmatch 04/11/22 04/11/22 04/12/22 17:29 23:17 04:00 WBC 17.4 H RBC 2.96 L Hgb 9.0 L Hct 28.0 L MCV 95 H MCHC RDW Plt Count Lymph % (Auto) Gaines % (Auto) Lymph # (Auto) Gaines # (Auto) Seg Neutrophils % Seg Neuts % (Manual) Lymphocytes % (Manual) Seg Neutrophils # Seg Neutrophils # Man Lymphocytes # (Manual) PT INR ABG pH ABG pO2 ABG HCO3 ABG O2 Saturation ABG Base Excess ABG Hemoglobin Oxyhemoglobin Sodium Potassium Chloride Carbon Dioxide BUN Creatinine Glucose POC Glucose 125 H 151 H Calcium Phosphorus Magnesium Total Creatine Kinase CK-MB (CK-2) Rel Index Troponin T C-Reactive Protein Total Protein Albumin LDL Cholesterol Direct Urine WBC (Auto) Crossmatch 04/12/22 04/12/22 04/12/22 04:00 17:03 23:39 WBC RBC Hgb Hct MCV MCHC RDW Plt Count Lymph % (Auto) Gaines % (Auto) Lymph # (Auto) Gaines # (Auto) Seg Neutrophils % Seg Neuts % (Manual) Lymphocytes % (Manual) Seg Neutrophils # Seg Neutrophils # Man Lymphocytes # (Manual) PT INR ABG pH ABG pO2 ABG HCO3 ABG O2 Saturation ABG Base Excess ABG Hemoglobin Oxyhemoglobin Sodium Potassium Chloride 97.4 L Carbon Dioxide 37 H BUN Creatinine < 0.2 L Glucose 127 H POC Glucose 106 H 107 H Calcium Phosphorus Magnesium Total Creatine Kinase CK-MB (CK-2) Rel Index Troponin T C-Reactive Protein Total Protein Albumin LDL Cholesterol Direct Urine WBC (Auto) Crossmatch 04/13/22 04/13/22 04/13/22 04:30 04:30 17:39 WBC 14.1 H RBC 2.66 L Hgb 8.4 L Hct 25.5 L MCV 96 H MCHC RDW Plt Count Lymph % (Auto) Gaines % (Auto) Lymph # (Auto) Gaines # (Auto) Seg Neutrophils % Seg Neuts % (Manual) Lymphocytes % (Manual) Seg Neutrophils # Seg Neutrophils # Man Lymphocytes # (Manual) PT INR ABG pH ABG pO2 ABG HCO3 ABG O2 Saturation ABG Base Excess ABG Hemoglobin Oxyhemoglobin Sodium Potassium Chloride 93.9 L Carbon Dioxide 39 H BUN Creatinine < 0.2 L Glucose POC Glucose 134 H Calcium Phosphorus 1.90 L Magnesium Total Creatine Kinase CK-MB (CK-2) Rel Index Troponin T C-Reactive Protein Total Protein Albumin LDL Cholesterol Direct Urine WBC (Auto) Crossmatch 04/14/22 04/14/22 04/14/22 05:03 05:03 09:10 WBC 15.6 H RBC 3.02 L Hgb 9.3 L Hct 28.8 L MCV 95 H MCHC RDW Plt Count Lymph % (Auto) Gaines % (Auto) Lymph # (Auto) Gaines # (Auto) Seg Neutrophils % Seg Neuts % (Manual) Lymphocytes % (Manual) Seg Neutrophils # Seg Neutrophils # Man Lymphocytes # (Manual) PT INR ABG pH ABG pO2 66.9 L ABG HCO3 44.5 H ABG O2 Saturation ABG Base Excess 17.2 H ABG Hemoglobin 8.1 L Oxyhemoglobin 94.8 L Sodium Potassium Chloride 93.8 L Carbon Dioxide 42 H* BUN Creatinine < 0.2 L Glucose 117 H POC Glucose Calcium Phosphorus Magnesium Total Creatine Kinase CK-MB (CK-2) Rel Index Troponin T C-Reactive Protein Total Protein Albumin LDL Cholesterol Direct Urine WBC (Auto) Crossmatch 04/15/22 04/15/22 04/16/22 04:44 04:44 04:16 WBC 13.0 H 12.6 H RBC 3.19 L 3.09 L Hgb 9.6 L 9.5 L Hct 30.2 L 29.1 L MCV 95 H MCHC RDW Plt Count 456 H Lymph % (Auto) Gaines % (Auto) Lymph # (Auto) Gaines # (Auto) Seg Neutrophils % Seg Neuts % (Manual) Lymphocytes % (Manual) Seg Neutrophils # Seg Neutrophils # Man Lymphocytes # (Manual) PT INR ABG pH ABG pO2 ABG HCO3 ABG O2 Saturation ABG Base Excess ABG Hemoglobin Oxyhemoglobin Sodium Potassium Chloride 95.5 L Carbon Dioxide 37 H BUN Creatinine < 0.2 L Glucose POC Glucose Calcium Phosphorus Magnesium Total Creatine Kinase CK-MB (CK-2) Rel Index Troponin T C-Reactive Protein Total Protein Albumin LDL Cholesterol Direct Urine WBC (Auto) Crossmatch 04/16/22 04/16/22 04/16/22 04:16 05:00 14:00 WBC RBC Hgb Hct MCV MCHC RDW Plt Count Lymph % (Auto) Gaines % (Auto) Lymph # (Auto) Gaines # (Auto) Seg Neutrophils % Seg Neuts % (Manual) Lymphocytes % (Manual) Seg Neutrophils # Seg Neutrophils # Man Lymphocytes # (Manual) PT INR ABG pH 7.324 L ABG pO2 55.6 L ABG HCO3 45.3 H ABG O2 Saturation 87.1 L ABG Base Excess 16.6 H ABG Hemoglobin 8.6 L Oxyhemoglobin 85.7 L Sodium Potassium Chloride 97.6 L Carbon Dioxide 36 H BUN Creatinine < 0.2 L Glucose 109 H POC Glucose 120 H Calcium Phosphorus Magnesium Total Creatine Kinase CK-MB (CK-2) Rel Index Troponin T C-Reactive Protein Total Protein Albumin LDL Cholesterol Direct Urine WBC (Auto) Crossmatch 04/17/22 04/17/22 04/17/22 04:36 04:36 04:57 WBC 14.4 H RBC 3.08 L Hgb 9.4 L Hct 29.0 L MCV MCHC RDW Plt Count Lymph % (Auto) Gaines % (Auto) Lymph # (Auto) Gaines # (Auto) Seg Neutrophils % Seg Neuts % (Manual) Lymphocytes % (Manual) Seg Neutrophils # Seg Neutrophils # Man Lymphocytes # (Manual) PT INR ABG pH ABG pO2 ABG HCO3 ABG O2 Saturation ABG Base Excess ABG Hemoglobin Oxyhemoglobin Sodium Potassium Chloride 95.9 L Carbon Dioxide 39 H BUN Creatinine < 0.2 L Glucose 140 H POC Glucose 137 H Calcium 8.3 L Phosphorus Magnesium Total Creatine Kinase CK-MB (CK-2) Rel Index Troponin T C-Reactive Protein Total Protein Albumin LDL Cholesterol Direct Urine WBC (Auto) Crossmatch 04/17/22 04/17/22 04/18/22 09:15 18:01 04:20 WBC 11.2 H RBC 3.00 L Hgb 9.3 L Hct 28.6 L MCV 95 H MCHC RDW Plt Count Lymph % (Auto) Gaines % (Auto) Lymph # (Auto) Gaines # (Auto) Seg Neutrophils % Seg Neuts % (Manual) Lymphocytes % (Manual) Seg Neutrophils # Seg Neutrophils # Man Lymphocytes # (Manual) PT INR ABG pH 7.345 L ABG pO2 ABG HCO3 48.2 H ABG O2 Saturation ABG Base Excess 19.2 H ABG Hemoglobin 9.7 L Oxyhemoglobin Sodium Potassium Chloride Carbon Dioxide BUN Creatinine Glucose POC Glucose 129 H Calcium Phosphorus Magnesium Total Creatine Kinase CK-MB (CK-2) Rel Index Troponin T C-Reactive Protein Total Protein Albumin LDL Cholesterol Direct Urine WBC (Auto) Crossmatch 04/18/22 04/18/22 04/18/22 04:20 17:35 23:50 WBC RBC Hgb Hct MCV MCHC RDW Plt Count Lymph % (Auto) Gaines % (Auto) Lymph # (Auto) Gaines # (Auto) Seg Neutrophils % Seg Neuts % (Manual) Lymphocytes % (Manual) Seg Neutrophils # Seg Neutrophils # Man Lymphocytes # (Manual) PT INR ABG pH ABG pO2 ABG HCO3 ABG O2 Saturation ABG Base Excess ABG Hemoglobin Oxyhemoglobin Sodium Potassium Chloride 96.8 L Carbon Dioxide 43 H* BUN 22 H Creatinine < 0.2 L Glucose 137 H POC Glucose 128 H 123 H Calcium 8.2 L Phosphorus Magnesium Total Creatine Kinase CK-MB (CK-2) Rel Index Troponin T C-Reactive Protein Total Protein Albumin LDL Cholesterol Direct Urine WBC (Auto) Crossmatch 04/19/22 04/19/22 04/19/22 04:08 04:08 08:50 WBC 16.8 H RBC 3.18 L Hgb 9.8 L Hct 30.1 L MCV 95 H MCHC RDW Plt Count Lymph % (Auto) Gaines % (Auto) Lymph # (Auto) Gaines # (Auto) Seg Neutrophils % Seg Neuts % (Manual) Lymphocytes % (Manual) Seg Neutrophils # Seg Neutrophils # Man Lymphocytes # (Manual) PT INR ABG pH ABG pO2 56.0 L ABG HCO3 47.1 H ABG O2 Saturation 93.3 L ABG Base Excess 20.1 H ABG Hemoglobin 8.0 L Oxyhemoglobin 91.8 L Sodium Potassium Chloride 96.2 L Carbon Dioxide 40 H BUN 24 H Creatinine < 0.2 L Glucose 125 H POC Glucose Calcium 8.3 L Phosphorus Magnesium Total Creatine Kinase CK-MB (CK-2) Rel Index Troponin T C-Reactive Protein Total Protein Albumin LDL Cholesterol Direct Urine WBC (Auto) Crossmatch 04/19/22 04/20/22 04/20/22 12:02 00:40 04:49 WBC 14.7 H RBC 3.36 L Hgb 10.3 L Hct 32.0 L MCV 95 H MCHC RDW Plt Count Lymph % (Auto) Gaines % (Auto) Lymph # (Auto) Gaines # (Auto) Seg Neutrophils % Seg Neuts % (Manual) Lymphocytes % (Manual) Seg Neutrophils # Seg Neutrophils # Man Lymphocytes # (Manual) PT INR ABG pH ABG pO2 ABG HCO3 ABG O2 Saturation ABG Base Excess ABG Hemoglobin Oxyhemoglobin Sodium Potassium Chloride Carbon Dioxide BUN Creatinine Glucose POC Glucose 124 H 140 H Calcium Phosphorus Magnesium Total Creatine Kinase CK-MB (CK-2) Rel Index Troponin T C-Reactive Protein Total Protein Albumin LDL Cholesterol Direct Urine WBC (Auto) Crossmatch 04/20/22 04/20/22 04/21/22 05:36 11:40 04:05 WBC RBC Hgb Hct MCV MCHC RDW Plt Count Lymph % (Auto) Gaines % (Auto) Lymph # (Auto) Gaines # (Auto) Seg Neutrophils % Seg Neuts % (Manual) Lymphocytes % (Manual) Seg Neutrophils # Seg Neutrophils # Man Lymphocytes # (Manual) PT INR ABG pH ABG pO2 ABG HCO3 ABG O2 Saturation ABG Base Excess ABG Hemoglobin Oxyhemoglobin Sodium Potassium Chloride 93.4 L Carbon Dioxide 40 H BUN 25 H Creatinine < 0.2 L Glucose 122 H POC Glucose 125 H 128 H Calcium Phosphorus Magnesium Total Creatine Kinase CK-MB (CK-2) Rel Index Troponin T C-Reactive Protein Total Protein Albumin LDL Cholesterol Direct Urine WBC (Auto) Crossmatch 04/21/22 04/22/22 04/22/22 10:31 05:03 05:03 WBC 12.6 H 12.7 H RBC 2.83 L 2.96 L Hgb 8.6 L 9.0 L Hct 26.9 L 28.0 L MCV 95 H 95 H MCHC RDW Plt Count Lymph % (Auto) Gaines % (Auto) Lymph # (Auto) Gaines # (Auto) Seg Neutrophils % Seg Neuts % (Manual) Lymphocytes % (Manual) Seg Neutrophils # Seg Neutrophils # Man Lymphocytes # (Manual) PT INR ABG pH ABG pO2 ABG HCO3 ABG O2 Saturation ABG Base Excess ABG Hemoglobin Oxyhemoglobin Sodium Potassium Chloride 93.9 L Carbon Dioxide 43 H* BUN 23 H Creatinine < 0.2 L Glucose 137 H POC Glucose Calcium Phosphorus Magnesium Total Creatine Kinase CK-MB (CK-2) Rel Index Troponin T C-Reactive Protein Total Protein Albumin LDL Cholesterol Direct Urine WBC (Auto) Crossmatch 04/22/22 04/23/22 04/24/22 08:34 09:40 04:29 WBC 14.4 H RBC 2.74 L Hgb 8.4 L Hct 25.7 L MCV MCHC RDW Plt Count Lymph % (Auto) Gaines % (Auto) Lymph # (Auto) Gaines # (Auto) Seg Neutrophils % Seg Neuts % (Manual) Lymphocytes % (Manual) Seg Neutrophils # Seg Neutrophils # Man Lymphocytes # (Manual) PT INR ABG pH ABG pO2 54.1 L 56.8 L ABG HCO3 48.5 H 49.0 H ABG O2 Saturation 92.1 L 90.9 L ABG Base Excess 20.9 H 20.8 H ABG Hemoglobin 9.0 L 8.4 L Oxyhemoglobin 90.6 L 89.5 L Sodium Potassium Chloride Carbon Dioxide BUN Creatinine Glucose POC Glucose Calcium Phosphorus Magnesium Total Creatine Kinase CK-MB (CK-2) Rel Index Troponin T C-Reactive Protein Total Protein Albumin LDL Cholesterol Direct Urine WBC (Auto) Crossmatch 04/24/22 04/25/22 04/26/22 04:29 09:00 04:22 WBC RBC 2.88 L Hgb 8.9 L Hct 26.8 L MCV MCHC RDW Plt Count Lymph % (Auto) Gaines % (Auto) Lymph # (Auto) Gaines # (Auto) Seg Neutrophils % Seg Neuts % (Manual) Lymphocytes % (Manual) Seg Neutrophils # Seg Neutrophils # Man Lymphocytes # (Manual) PT INR ABG pH 7.457 H ABG pO2 66.7 L ABG HCO3 42.6 H ABG O2 Saturation ABG Base Excess 15.3 H ABG Hemoglobin 8.8 L Oxyhemoglobin 94.1 L Sodium Potassium Chloride 90.7 L Carbon Dioxide 40 H BUN Creatinine < 0.2 L Glucose 133 H POC Glucose Calcium Phosphorus Magnesium Total Creatine Kinase CK-MB (CK-2) Rel Index Troponin T C-Reactive Protein Total Protein Albumin LDL Cholesterol Direct Urine WBC (Auto) Crossmatch 04/26/22 04/29/22 04/29/22 04:22 04:18 04:18 WBC 13.5 H RBC 2.96 L Hgb 8.9 L Hct 27.7 L MCV MCHC RDW Plt Count Lymph % (Auto) Gaines % (Auto) Lymph # (Auto) Gaines # (Auto) Seg Neutrophils % Seg Neuts % (Manual) Lymphocytes % (Manual) Seg Neutrophils # Seg Neutrophils # Man Lymphocytes # (Manual) PT INR ABG pH ABG pO2 ABG HCO3 ABG O2 Saturation ABG Base Excess ABG Hemoglobin Oxyhemoglobin Sodium Potassium Chloride 93.2 L 95.2 L Carbon Dioxide 37 H 38 H BUN Creatinine < 0.2 L < 0.2 L Glucose 114 H 116 H POC Glucose Calcium Phosphorus Magnesium Total Creatine Kinase CK-MB (CK-2) Rel Index Troponin T C-Reactive Protein Total Protein Albumin LDL Cholesterol Direct Urine WBC (Auto) Crossmatch 05/02/22 05/03/22 05/03/22 04:29 04:02 04:02 WBC 12.9 H 12.3 H RBC 2.82 L 2.83 L Hgb 8.4 L 8.4 L Hct 26.2 L 26.0 L MCV MCHC RDW Plt Count Lymph % (Auto) Gaines % (Auto) Lymph # (Auto) Gaines # (Auto) Seg Neutrophils % Seg Neuts % (Manual) Lymphocytes % (Manual) Seg Neutrophils # Seg Neutrophils # Man Lymphocytes # (Manual) PT INR ABG pH ABG pO2 ABG HCO3 ABG O2 Saturation ABG Base Excess ABG Hemoglobin Oxyhemoglobin Sodium 134 L Potassium Chloride 90.5 L Carbon Dioxide 38 H BUN 21 H Creatinine < 0.2 L Glucose 126 H POC Glucose Calcium Phosphorus Magnesium Total Creatine Kinase CK-MB (CK-2) Rel Index Troponin T C-Reactive Protein Total Protein Albumin LDL Cholesterol Direct Urine WBC (Auto) Crossmatch 05/03/22 05/03/22 05/04/22 12:02 17:42 09:36 WBC RBC Hgb Hct MCV MCHC RDW Plt Count Lymph % (Auto) Gaines % (Auto) Lymph # (Auto) Gaines # (Auto) Seg Neutrophils % Seg Neuts % (Manual) Lymphocytes % (Manual) Seg Neutrophils # Seg Neutrophils # Man Lymphocytes # (Manual) PT INR ABG pH ABG pO2 55.4 L ABG HCO3 43.7 H ABG O2 Saturation 87.4 L ABG Base Excess 16.1 H ABG Hemoglobin 9.1 L Oxyhemoglobin 85.7 L Sodium Potassium Chloride Carbon Dioxide BUN Creatinine Glucose POC Glucose 139 H 131 H Calcium Phosphorus Magnesium Total Creatine Kinase CK-MB (CK-2) Rel Index Troponin T C-Reactive Protein Total Protein Albumin LDL Cholesterol Direct Urine WBC (Auto) Crossmatch 05/04/22 05/04/22 05/05/22 17:08 23:10 04:23 WBC 14.4 H RBC 2.75 L Hgb 8.2 L Hct 25.2 L MCV MCHC RDW Plt Count Lymph % (Auto) Gaines % (Auto) Lymph # (Auto) Gaines # (Auto) Seg Neutrophils % Seg Neuts % (Manual) Lymphocytes % (Manual) Seg Neutrophils # Seg Neutrophils # Man Lymphocytes # (Manual) PT INR ABG pH ABG pO2 ABG HCO3 ABG O2 Saturation ABG Base Excess ABG Hemoglobin Oxyhemoglobin Sodium Potassium Chloride Carbon Dioxide BUN Creatinine Glucose POC Glucose 124 H 115 H Calcium Phosphorus Magnesium Total Creatine Kinase CK-MB (CK-2) Rel Index Troponin T C-Reactive Protein Total Protein Albumin LDL Cholesterol Direct Urine WBC (Auto) Crossmatch 05/05/22 05/05/22 05/06/22 04:23 21:39 05:13 WBC RBC Hgb Hct MCV MCHC RDW Plt Count Lymph % (Auto) Gaines % (Auto) Lymph # (Auto) Gaines # (Auto) Seg Neutrophils % Seg Neuts % (Manual) Lymphocytes % (Manual) Seg Neutrophils # Seg Neutrophils # Man Lymphocytes # (Manual) PT INR ABG pH ABG pO2 ABG HCO3 ABG O2 Saturation ABG Base Excess ABG Hemoglobin Oxyhemoglobin Sodium Potassium Chloride 91.3 L Carbon Dioxide 38 H BUN 23 H Creatinine < 0.2 L Glucose 128 H POC Glucose 141 H 136 H Calcium Phosphorus Magnesium Total Creatine Kinase CK-MB (CK-2) Rel Index Troponin T C-Reactive Protein Total Protein Albumin LDL Cholesterol Direct Urine WBC (Auto) Crossmatch 05/07/22 05/07/22 05/08/22 05:29 22:15 05:48 WBC RBC Hgb Hct MCV MCHC RDW Plt Count Lymph % (Auto) Gaines % (Auto) Lymph # (Auto) Gaines # (Auto) Seg Neutrophils % Seg Neuts % (Manual) Lymphocytes % (Manual) Seg Neutrophils # Seg Neutrophils # Man Lymphocytes # (Manual) PT INR ABG pH ABG pO2 ABG HCO3 ABG O2 Saturation ABG Base Excess ABG Hemoglobin Oxyhemoglobin Sodium Potassium Chloride Carbon Dioxide BUN Creatinine Glucose POC Glucose 125 H 142 H 122 H Calcium Phosphorus Magnesium Total Creatine Kinase CK-MB (CK-2) Rel Index Troponin T C-Reactive Protein Total Protein Albumin LDL Cholesterol Direct Urine WBC (Auto) Crossmatch 05/08/22 05/08/22 05/09/22 14:04 21:48 15:15 WBC RBC 2.61 L Hgb 7.7 L Hct 23.2 L MCV MCHC RDW Plt Count Lymph % (Auto) 8.1 L Gaines % (Auto) Lymph # (Auto) 0.9 L Gaines # (Auto) Seg Neutrophils % 86.1 H Seg Neuts % (Manual) Lymphocytes % (Manual) Seg Neutrophils # 9.2 H Seg Neutrophils # Man Lymphocytes # (Manual) PT INR ABG pH ABG pO2 ABG HCO3 ABG O2 Saturation ABG Base Excess ABG Hemoglobin Oxyhemoglobin Sodium Potassium Chloride Carbon Dioxide BUN Creatinine Glucose POC Glucose 112 H 107 H Calcium Phosphorus Magnesium Total Creatine Kinase CK-MB (CK-2) Rel Index Troponin T C-Reactive Protein Total Protein Albumin LDL Cholesterol Direct Urine WBC (Auto) Crossmatch 05/09/22 05/09/22 05/09/22 15:15 15:39 21:15 WBC RBC Hgb Hct MCV MCHC RDW Plt Count Lymph % (Auto) Gaines % (Auto) Lymph # (Auto) Gaines # (Auto) Seg Neutrophils % Seg Neuts % (Manual) Lymphocytes % (Manual) Seg Neutrophils # Seg Neutrophils # Man Lymphocytes # (Manual) PT INR ABG pH ABG pO2 ABG HCO3 ABG O2 Saturation ABG Base Excess ABG Hemoglobin Oxyhemoglobin Sodium Potassium Chloride 92.9 L Carbon Dioxide 40 H BUN Creatinine < 0.2 L Glucose 141 H POC Glucose 118 H 112 H Calcium Phosphorus Magnesium Total Creatine Kinase CK-MB (CK-2) Rel Index Troponin T C-Reactive Protein Total Protein Albumin LDL Cholesterol Direct Urine WBC (Auto) Crossmatch 05/10/22 05/12/22 05/13/22 15:14 00:25 04:02 WBC 13.3 H RBC 3.14 L Hgb 8.7 L Hct 28.0 L MCV MCHC 31 L RDW Plt Count Lymph % (Auto) Gaines % (Auto) Lymph # (Auto) Gaines # (Auto) Seg Neutrophils % Seg Neuts % (Manual) Lymphocytes % (Manual) Seg Neutrophils # Seg Neutrophils # Man Lymphocytes # (Manual) PT INR ABG pH ABG pO2 ABG HCO3 ABG O2 Saturation ABG Base Excess ABG Hemoglobin Oxyhemoglobin Sodium Potassium Chloride Carbon Dioxide BUN Creatinine Glucose POC Glucose 113 H 158 H Calcium Phosphorus Magnesium Total Creatine Kinase CK-MB (CK-2) Rel Index Troponin T C-Reactive Protein Total Protein Albumin LDL Cholesterol Direct Urine WBC (Auto) Crossmatch 05/13/22 05/13/22 05/13/22 04:02 06:32 13:09 WBC RBC Hgb Hct MCV MCHC RDW Plt Count Lymph % (Auto) Gaines % (Auto) Lymph # (Auto) Gaines # (Auto) Seg Neutrophils % Seg Neuts % (Manual) Lymphocytes % (Manual) Seg Neutrophils # Seg Neutrophils # Man Lymphocytes # (Manual) PT INR ABG pH ABG pO2 ABG HCO3 ABG O2 Saturation ABG Base Excess ABG Hemoglobin Oxyhemoglobin Sodium 135 L Potassium Chloride 91.1 L Carbon Dioxide 40 H BUN 23 H Creatinine < 0.2 L Glucose 139 H POC Glucose 129 H 117 H Calcium Phosphorus Magnesium Total Creatine Kinase CK-MB (CK-2) Rel Index Troponin T C-Reactive Protein Total Protein Albumin LDL Cholesterol Direct Urine WBC (Auto) Crossmatch 05/13/22 05/14/22 05/14/22 21:28 05:44 07:35 WBC RBC Hgb Hct MCV MCHC RDW Plt Count Lymph % (Auto) Gaines % (Auto) Lymph # (Auto) Gaines # (Auto) Seg Neutrophils % Seg Neuts % (Manual) Lymphocytes % (Manual) Seg Neutrophils # Seg Neutrophils # Man Lymphocytes # (Manual) PT INR ABG pH ABG pO2 ABG HCO3 ABG O2 Saturation ABG Base Excess ABG Hemoglobin Oxyhemoglobin Sodium Potassium Chloride Carbon Dioxide BUN Creatinine Glucose POC Glucose 109 H 130 H 125 H Calcium Phosphorus Magnesium Total Creatine Kinase CK-MB (CK-2) Rel Index Troponin T C-Reactive Protein Total Protein Albumin LDL Cholesterol Direct Urine WBC (Auto) Crossmatch 05/14/22 05/14/22 05/15/22 16:26 23:44 10:44 WBC 13.9 H RBC 2.71 L Hgb 7.5 L Hct 23.5 L MCV MCHC RDW 15.9 H Plt Count Lymph % (Auto) Gaines % (Auto) Lymph # (Auto) Gaines # (Auto) Seg Neutrophils % Seg Neuts % (Manual) Lymphocytes % (Manual) Seg Neutrophils # Seg Neutrophils # Man Lymphocytes # (Manual) PT INR ABG pH ABG pO2 ABG HCO3 ABG O2 Saturation ABG Base Excess ABG Hemoglobin Oxyhemoglobin Sodium Potassium Chloride Carbon Dioxide BUN Creatinine Glucose POC Glucose 112 H 189 H Calcium Phosphorus Magnesium Total Creatine Kinase CK-MB (CK-2) Rel Index Troponin T C-Reactive Protein Total Protein Albumin LDL Cholesterol Direct Urine WBC (Auto) Crossmatch 05/15/22 05/16/22 05/16/22 10:44 14:50 21:36 WBC RBC Hgb Hct MCV MCHC RDW Plt Count Lymph % (Auto) Gaines % (Auto) Lymph # (Auto) Gaines # (Auto) Seg Neutrophils % Seg Neuts % (Manual) Lymphocytes % (Manual) Seg Neutrophils # Seg Neutrophils # Man Lymphocytes # (Manual) PT INR ABG pH ABG pO2 ABG HCO3 ABG O2 Saturation ABG Base Excess ABG Hemoglobin Oxyhemoglobin Sodium 135 L Potassium 3.3 L D Chloride 91.5 L Carbon Dioxide 33 H D BUN 21 H Creatinine < 0.2 L Glucose 118 H POC Glucose 133 H 123 H Calcium 7.9 L Phosphorus Magnesium Total Creatine Kinase CK-MB (CK-2) Rel Index Troponin T C-Reactive Protein Total Protein Albumin LDL Cholesterol Direct Urine WBC (Auto) Crossmatch 05/17/22 05/17/22 05/17/22 03:41 03:41 05:51 WBC 16.2 H RBC 2.53 L Hgb 7.0 L Hct 21.5 L MCV MCHC RDW 16.2 H Plt Count Lymph % (Auto) Gaines % (Auto) Lymph # (Auto) Gaines # (Auto) Seg Neutrophils % Seg Neuts % (Manual) 96.0 H Lymphocytes % (Manual) 1.0 L Seg Neutrophils # Seg Neutrophils # Man 15.6 H Lymphocytes # (Manual) 0.2 L PT INR ABG pH ABG pO2 ABG HCO3 ABG O2 Saturation ABG Base Excess ABG Hemoglobin Oxyhemoglobin Sodium 132 L Potassium Chloride 95.0 L Carbon Dioxide BUN 22 H Creatinine < 0.2 L Glucose 122 H POC Glucose 123 H Calcium Phosphorus Magnesium Total Creatine Kinase CK-MB (CK-2) Rel Index Troponin T C-Reactive Protein 31.20 H Total Protein Albumin LDL Cholesterol Direct Urine WBC (Auto) Crossmatch 05/17/22 05/17/22 05/18/22 07:53 21:03 05:41 WBC 15.0 H RBC 2.58 L Hgb 7.1 L Hct 22.3 L MCV MCHC RDW 16.1 H Plt Count Lymph % (Auto) Gaines % (Auto) Lymph # (Auto) Gaines # (Auto) Seg Neutrophils % Seg Neuts % (Manual) Lymphocytes % (Manual) Seg Neutrophils # Seg Neutrophils # Man Lymphocytes # (Manual) PT INR ABG pH ABG pO2 ABG HCO3 ABG O2 Saturation ABG Base Excess ABG Hemoglobin Oxyhemoglobin Sodium Potassium Chloride Carbon Dioxide BUN Creatinine Glucose POC Glucose 106 H 123 H Calcium Phosphorus Magnesium Total Creatine Kinase CK-MB (CK-2) Rel Index Troponin T C-Reactive Protein Total Protein Albumin LDL Cholesterol Direct Urine WBC (Auto) Crossmatch 05/18/22 05/18/22 05/18/22 05:41 13:56 21:08 WBC RBC Hgb Hct MCV MCHC RDW Plt Count Lymph % (Auto) Gaines % (Auto) Lymph # (Auto) Gaines # (Auto) Seg Neutrophils % Seg Neuts % (Manual) Lymphocytes % (Manual) Seg Neutrophils # Seg Neutrophils # Man Lymphocytes # (Manual) PT INR ABG pH ABG pO2 ABG HCO3 ABG O2 Saturation ABG Base Excess ABG Hemoglobin Oxyhemoglobin Sodium Potassium Chloride 97.9 L Carbon Dioxide BUN 23 H Creatinine < 0.2 L Glucose 128 H POC Glucose 137 H Calcium Phosphorus Magnesium Total Creatine Kinase CK-MB (CK-2) Rel Index Troponin T C-Reactive Protein Total Protein Albumin LDL Cholesterol Direct Urine WBC (Auto) Crossmatch See Detail 05/18/22 05/19/22 05/20/22 23:21 06:10 00:43 WBC 13.5 H RBC 2.53 L Hgb 7.2 L Hct 21.5 L MCV MCHC RDW 16.4 H Plt Count Lymph % (Auto) Gaines % (Auto) Lymph # (Auto) Gaines # (Auto) Seg Neutrophils % Seg Neuts % (Manual) Lymphocytes % (Manual) Seg Neutrophils # Seg Neutrophils # Man Lymphocytes # (Manual) PT INR ABG pH ABG pO2 70.5 L ABG HCO3 30.3 H ABG O2 Saturation ABG Base Excess 4.9 H ABG Hemoglobin 5.9 L Oxyhemoglobin Sodium Potassium Chloride Carbon Dioxide BUN Creatinine Glucose POC Glucose 151 H Calcium Phosphorus Magnesium Total Creatine Kinase CK-MB (CK-2) Rel Index Troponin T C-Reactive Protein Total Protein Albumin LDL Cholesterol Direct Urine WBC (Auto) Crossmatch 05/20/22 05/20/22 05/20/22 04:40 04:40 07:08 WBC 13.3 H RBC 2.57 L Hgb 7.1 L Hct 22.2 L MCV MCHC RDW 16.3 H Plt Count Lymph % (Auto) Gaines % (Auto) Lymph # (Auto) Gaines # (Auto) Seg Neutrophils % Seg Neuts % (Manual) Lymphocytes % (Manual) Seg Neutrophils # Seg Neutrophils # Man Lymphocytes # (Manual) PT INR ABG pH ABG pO2 ABG HCO3 ABG O2 Saturation ABG Base Excess ABG Hemoglobin Oxyhemoglobin Sodium 134 L Potassium Chloride Carbon Dioxide BUN Creatinine < 0.2 L Glucose 170 H POC Glucose 174 H Calcium 8.1 L Phosphorus Magnesium Total Creatine Kinase CK-MB (CK-2) Rel Index Troponin T C-Reactive Protein Total Protein Albumin LDL Cholesterol Direct Urine WBC (Auto) Crossmatch 05/20/22 05/21/22 05/21/22 15:08 05:13 22:07 WBC RBC Hgb Hct MCV MCHC RDW Plt Count Lymph % (Auto) Gaines % (Auto) Lymph # (Auto) Gaines # (Auto) Seg Neutrophils % Seg Neuts % (Manual) Lymphocytes % (Manual) Seg Neutrophils # Seg Neutrophils # Man Lymphocytes # (Manual) PT INR ABG pH ABG pO2 ABG HCO3 ABG O2 Saturation ABG Base Excess ABG Hemoglobin Oxyhemoglobin Sodium Potassium Chloride Carbon Dioxide BUN Creatinine Glucose POC Glucose 114 H 149 H 113 H Calcium Phosphorus Magnesium Total Creatine Kinase CK-MB (CK-2) Rel Index Troponin T C-Reactive Protein Total Protein Albumin LDL Cholesterol Direct Urine WBC (Auto) Crossmatch 05/22/22 05/22/22 05/22/22 05:49 05:49 14:09 WBC RBC 3.05 L Hgb 8.6 L Hct 26.2 L MCV MCHC RDW 16.8 H Plt Count Lymph % (Auto) Gaines % (Auto) Lymph # (Auto) Gaines # (Auto) Seg Neutrophils % Seg Neuts % (Manual) Lymphocytes % (Manual) Seg Neutrophils # Seg Neutrophils # Man Lymphocytes # (Manual) PT INR ABG pH ABG pO2 ABG HCO3 ABG O2 Saturation ABG Base Excess ABG Hemoglobin Oxyhemoglobin Sodium 131 L Potassium Chloride 93.3 L Carbon Dioxide 32 H BUN Creatinine < 0.2 L Glucose 148 H POC Glucose 136 H Calcium 8.2 L Phosphorus Magnesium Total Creatine Kinase CK-MB (CK-2) Rel Index Troponin T C-Reactive Protein Total Protein Albumin LDL Cholesterol Direct Urine WBC (Auto) Crossmatch 05/23/22 05/24/22 05/24/22 14:13 04:22 04:22 WBC RBC 2.89 L Hgb 7.9 L Hct 24.9 L MCV MCHC RDW 17.0 H Plt Count Lymph % (Auto) Gaines % (Auto) Lymph # (Auto) Gaines # (Auto) Seg Neutrophils % Seg Neuts % (Manual) Lymphocytes % (Manual) Seg Neutrophils # Seg Neutrophils # Man Lymphocytes # (Manual) PT INR ABG pH ABG pO2 ABG HCO3 ABG O2 Saturation ABG Base Excess ABG Hemoglobin Oxyhemoglobin Sodium 133 L Potassium 5.1 H Chloride 93.7 L Carbon Dioxide 33 H BUN Creatinine < 0.2 L Glucose 144 H POC Glucose 135 H Calcium 8.3 L Phosphorus Magnesium Total Creatine Kinase CK-MB (CK-2) Rel Index Troponin T C-Reactive Protein Total Protein Albumin LDL Cholesterol Direct Urine WBC (Auto) Crossmatch Allied health notes reviewed: RT
[2022-05-24] MEDS: FAMOTIDINE 20 MG TAB FEEDTUBE SCH ×2 (09:35→21:11)
[2022-05-24] MEDS: SCOPOLAMINE TRANSDERMAL PATCH 72 HR TD SCH (09:35)
[2022-05-24] MEDS: BACLOFEN 10 MG TAB PO SCH ×3 (09:35→19:24)
[2022-05-24] MEDS: QUEtiapine 100 MG TAB FEEDTUBE SCH ×2 (09:36→21:11)
[2022-05-24] MEDS: DOCUSATE SODIUM 100 MG/10 ML ORAL LIQD FEEDTUBE SCH ×3 (10:00→21:10)
--- NOTE | 2022-05-24 10:50 | XRay Report ---
CHEST 1 VIEW 05/24/2022 10:04 AM INDICATION / CLINICAL INFORMATION: resp failure. COMPARISON: 05/18/2022 FINDINGS: SUPPORT DEVICES: Stable, satisfactory device positioning. HEART / MEDIASTINUM: No significant abnormality. LUNGS / PLEURA: Diffuse opacities in bilateral lungs persist. Bilateral effusions No pneumothorax. IMPRESSION: 1. Diffuse bilateral pulmonary opacities and effusions persist Signer Name: Nitin Plummer MD Signed: 05/24/2022 10:46 AM Workstation Name: [id number]
[2022-05-24] MEDS ORDERED: SODIUM POLYSTYRENE 15 GM/60 ML ORAL LIQD PO SCH (11:30)
[2022-05-24] MEDS ORDERED: SODIUM CHLORIDE 0.9% IRR 1,000 ML BOTTLE IR ONE (11:57)
[2022-05-24] MEDS: POLYETHYLENE GLYCOL 3350 17 GM POWDER FEEDTUBE SCH (12:30)
[2022-05-24] MEDS: INSULIN LISPRO 100 UNIT/ML SUB-Q SCH ×2 (13:20→21:42)
--- NOTE | 2022-05-24 15:11 | Post Operative Note ---
Pre-op diagnosis: Sacral decubitus Post-op diagnosis: same Findings: Wound VAC changed wound base clean. Skin substitute in place. Procedure: Change of wound VAC at bedside in ICU Anesthesia: none Surgeon: LOLI WALLACE Cutter Hand: BRYANT MENA Estimated blood loss: none Pathology: none Condition: critical Disposition: ICU
[2022-05-24] MEDS ORDERED: EPINEPHrine RACEMIC 2.25% 0.5ML NEBU IH ONE (19:47)
[2022-05-24] MEDS: SENNOSIDES ORAL LIQD 8.8 MG/5 ML ORAL LIQD FEEDTUBE SCH (21:10)
[2022-05-25 02:22] LABS: Blood Urea Nitrogen 17 mg/dL (9-20); Calcium 8.4 mg/dL (8.4-10.2); Hemolysis Index 2
[2022-05-25 02:23] LABS: BUN/Creatinine Ratio 85
[2022-05-25] MEDS: INSULIN LISPRO 100 UNIT/ML SUB-Q SCH ×3 (05:43→21:10)
[2022-05-25] MEDS: HEPARIN 5,000 UNIT/1 ML VIAL SUB-Q SCH ×3 (05:45→21:07)
[2022-05-25] MEDS: METOPROLOL TARTRATE 25 MG TAB FEEDTUBE SCH ×3 (05:45→18:21)
[2022-05-25] MEDS: ALBUTEROL 2.5 MG/3 ML NEBU IH SCH ×2 (08:17→20:32)
[2022-05-25] MEDS: ACETYLCYSTEINE 20% 200 MG/1 ML *FOR INHALATION USE INHALATION SCH ×3 (08:18→20:31)
[2022-05-25] MEDS: FAMOTIDINE 20 MG TAB FEEDTUBE SCH ×2 (09:26→21:07)
[2022-05-25] MEDS: BACLOFEN 10 MG TAB PO SCH ×3 (09:26→19:58)
[2022-05-25] MEDS: QUEtiapine 100 MG TAB FEEDTUBE SCH ×2 (09:26→21:07)
--- NOTE | 2022-05-25 12:55 | Progress Note ---
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 S/P debridement on 05/19/2022. #Hospital-acquired pneumonia: previously completed abx for Pseudomonas, Enterobacter. #Acute v/s now chronic respiratory failure: on the vent. S/P trach, PEG #ALS: Was on home hospice. #Bacillus bacteremia: likely contaminant. Recs: -Discussed with pharmacy to start Avycaz given CRE in cultures along with fevers. Sameer Ojeda Subjective Date of service: 05/25/22 Principal diagnosis: Ac and ch hypercapnic and hypoxemic Resp Failure; ALS; HC AP; Sepsis; NSTEMI Interval history: Febrile over the past 24 hours, white count remains normal. Had wound vac exchanged today. Objective - Exam Narrative Exam: Physical Exam: Constitutional: awake, on the vent, trach + Head, Ears, Nose: Normocephalic, atraumatic. External ears, nose normal Eyes: Conjunctivae/corneas clear. No icterus. No ptosis. Neck: trach + Cardiovascular: S1, S2 + Respiratory: AE fair bilaterally and equal GI: Soft, bowel sounds +, PEG + Musculoskeletal: No pedal edema, no cyanosis. Skin: sacral wound with dressing, not directly examined Hem/Lymphatic: No palpable cervical or supraclavicular nodes. No lymphangitis Psych: no agitation Neurological: awake, on the vent, exam limited - Constitutional Vitals: Vital Signs Temp Pulse Resp BP Pulse Ox 97.4 F L 102 H 13 108/67 96 05/25/22 12:00 05/25/22 12:00 05/25/22 12:00 05/25/22 12:00 05/25/22 12:00 Temperature -Last 24 Hours Temperature 97.4 F Temperature 99 F Temperature 100.8 F Temperature 99.8 F Temperature 100.6 F Temperature 99 F - Labs CBC & Chem 7: 05/24/22 04:22 05/25/22 00:44 Labs: Abnormal lab results 05/24/22 05/25/22 05/25/22 Range/Units 21:24 00:44 05:41 Chloride 94.8 L (98-107) mmol/L Carbon Dioxide 35 H (22-30) mmol/L Creatinine < 0.2 L (0.8-1.3) mg/dL Glucose 146 H (75-100) mg/dL POC Glucose 141 H 142 H (70-105) mg/dL
--- NOTE | 2022-05-25 13:44 | Progress Note ---
<BAY TORRES - Last Filed: 05/25/22 16:06> Assessment and Plan - Patient Problems (1) Respiratory failure Current Visit: Yes Status: Acute Plan to address problem: patient has trach to vent Intubated on 04/02 with a 7.50 ETT attempt at the lips s/p trach on 04/14 and s/p bronch on 04/15 Vent settings: PRVC Rate 14, TV 500, Peep 12, FiO2 50% Monitor 02 sat and ABG. (2) History of amyotrophic lateral sclerosis Current Visit: No Status: Acute Plan to address problem: s/p precedex, fentanyl gtt Position change and keep clean and dry CT head with no acute intracranial process Patient non verbal at home Per medical record (3) Acute coronary syndrome Current Visit: Yes Status: Acute Plan to address problem: h/o cardiomyopathy Cardiology consulted Monitor Blood pressure monitoring per protocol s/p Vasopressor support with Levophed Echocardiogram shows ejection fraction of 40 to 45%, mild global hypokinesis of left ventricle Nitro patch, BB (4) Full code status Current Visit: No Status: Acute Plan to address problem: Patient is full code (5) Hyperkalemia Current Visit: Yes Status: Acute Plan to address problem: Hyperkalemia resolved Continue monitor potassium level (6) Hyponatremia Current Visit: Yes Status: Acute Plan to address problem: Hyponatremia resolved Monitor kidney function and sodium levels CT head with no acute intracranial process History Interval history: 05/24/22 -patient seen today at bedside. Patients eyes open with no purposeful response. i reviewed lab, mar, and v/s. potassium 5.1-kayexalate given times 1- will repeat BMP in am. Pt remain on trach to vent.V/s stable. The high probability of a clinically significant, sudden or life threatening deterioration of the [multi] system(s) required my full and direct attention, intervention and personal management. The aggregate critical care time was [60] minutes. This time is in addition to time spent performing reported procedures but includes the following: Date: 05/25/22 Patient has significant history of ALS and as a result has remained on mechanical ventilation. Due to underlying neurological condition patient will require HFCWO vest. The patient has had trials of CoughAssist therapy with flutter wave CPT multiple suctioning while in the hospital but all of these have unfortunately failed to resolve his current condition and will benefit from the HFCWO vest. 05/25/22-patient asleep at the time of assessment. On trach to vent. The plan is to discharge patient on home vent. Reviewed specialist recommendations. We will follow-up with plan of care. Elevated potassium has resolved. Hyponatremia resolved. [x] Data Review and interpretation [x] Patient assessment and monitoring of vital signs [x] Documentation [x] Medication orders and management Disposition Plan: icu Total Time Spent with Patient (Minutes): 60 Hospitalist Physical - Constitutional Vitals: Temp Pulse Resp BP Pulse Ox 97.4 F L 103 H 14 103/68 95 05/25/22 12:00 05/25/22 13:00 05/25/22 13:00 05/25/22 13:00 05/25/22 13:00 General appearance: Present: no acute distress, cachectic, other (trach/vent) HEART Score - HEART Score Troponin: Troponin T 0.031 ng/mL (0.00-0.029) H 04/08/22 17:47 Results - Labs CBC & Chem 7: 05/25/22 13:51 05/25/22 00:44 Labs: Laboratory Last Values WBC 10.9 K/mm3 (4.5-11.0) 05/24/22 04:22 RBC 2.89 M/mm3 (3.65-5.03) L 05/24/22 04:22 Hgb 7.9 gm/dl (11.8-15.2) L 05/24/22 04:22 Hct 24.9 % (35.5-45.6) L 05/24/22 04:22 MCV 86 fl (84-94) 05/24/22 04:22 MCH 28 pg (28-32) 05/24/22 04:22 MCHC 32 % (32-34) 05/24/22 04:22 RDW 17.0 % (13.2-15.2) H 05/24/22 04:22 Plt Count 339 K/mm3 (140-440) D 05/24/22 04:22 Lymph % (Auto) 8.1 % (13.4-35.0) L 05/09/22 15:15 [place] % (Auto) 4.9 % (0.0-7.3) 05/09/22 15:15 Eos % (Auto) 0.6 % (0.0-4.3) 05/09/22 15:15 Baso % (Auto) 0.3 % (0.0-1.8) 05/09/22 15:15 Lymph # (Auto) 0.9 K/mm3 (1.2-5.4) L 05/09/22 15:15 [place] # (Auto) 0.5 K/mm3 (0.0-0.8) 05/09/22 15:15 Eos # (Auto) 0.1 K/mm3 (0.0-0.4) 05/09/22 15:15 Baso # (Auto) 0.0 K/mm3 (0.0-0.1) 05/09/22 15:15 Add Manual Diff Complete 05/17/22 03:41 Total Counted 100 05/17/22 03:41 Seg Neutrophils % [place] Ed[place] 05/17/22 03:41 Seg Neuts % (Manual) 96.0 % (40.0-70.0) H 05/17/22 03:41 Band Neutrophils % 0 % 05/17/22 03:41 Lymphocytes % (Manual) 1.0 % (13.4-35.0) L 05/17/22 03:41 Reactive Lymphs % (Man) 0 % 05/17/22 03:41 Monocytes % (Manual) 3.0 % (0.0-7.3) 05/17/22 03:41 Eosinophils % (Manual) 0 % (0.0-4.3) 05/17/22 03:41 Basophils % (Manual) 0 % (0.0-1.8) 05/17/22 03:41 Metamyelocytes % 0 % 05/17/22 03:41 Myelocytes % 0 % 05/17/22 03:41 Promyelocytes % 0 % 05/17/22 03:41 Blast Cells % 0 % 05/17/22 03:41 Nucleated RBC % Not Reportable 05/17/22 03:41 Seg Neutrophils # 9.2 K/mm3 (1.8-7.7) H 05/09/22 15:15 Seg Neutrophils # Man 15.6 K/mm3 (1.8-7.7) H 05/17/22 03:41 Band Neutrophils # 0.0 K/mm3 05/17/22 03:41 Lymphocytes # (Manual) 0.2 K/mm3 (1.2-5.4) L 05/17/22 03:41 Abs React Lymphs (Man) 0.0 K/mm3 05/17/22 03:41 Monocytes # (Manual) 0.5 K/mm3 (0.0-0.8) 05/17/22 03:41 Eosinophils # (Manual) 0.0 K/mm3 (0.0-0.4) 05/17/22 03:41 Basophils # (Manual) 0.0 K/mm3 (0.0-0.1) 05/17/22 03:41 Metamyelocytes # 0.0 K/mm3 05/17/22 03:41 Myelocytes # 0.0 K/mm3 05/17/22 03:41 Promyelocytes # 0.0 K/mm3 05/17/22 03:41 Blast Cells # 0.0 K/mm3 05/17/22 03:41 WBC Morphology Not Reportable 05/17/22 03:41 Hypersegmented Neuts Not Reportable 05/17/22 03:41 Hyposegmented Neuts Not Reportable 05/17/22 03:41 Hypogranular Neuts Not Reportable 05/17/22 03:41 Smudge Cells Not Reportable 05/17/22 03:41 Toxic Granulation Not Reportable 05/17/22 03:41 Toxic Vacuolation Not Reportable 05/17/22 03:41 Dohle Bodies Not Reportable 05/17/22 03:41 Pelger-Huet Anomaly Not Reportable 05/17/22 03:41 Terry Rods Not Reportable 05/17/22 03:41 Platelet Estimate Consistent w auto 05/17/22 03:41 Clumped Platelets Not Reportable 05/17/22 03:41 Plt Clumps, EDTA Not Reportable 05/17/22 03:41 Large Platelets Not Reportable 05/17/22 03:41 Giant Platelets Not Reportable 05/17/22 03:41 Platelet Satelliting Not Reportable 05/17/22 03:41 Plt Morphology Comment Not Reportable 05/17/22 03:41 RBC Morphology Not Reportable 05/17/22 03:41 Dimorphic RBCs Not Reportable 05/17/22 03:41 Polychromasia Not Reportable 05/17/22 03:41 Hypochromasia Not Reportable 05/17/22 03:41 Poikilocytosis Not Reportable 05/17/22 03:41 Anisocytosis 1+ 05/17/22 03:41 Microcytosis Not Reportable 05/17/22 03:41 Macrocytosis Not Reportable 05/17/22 03:41 Spherocytes Not Reportable 05/17/22 03:41 Pappenheimer Bodies Not Reportable 05/17/22 03:41 Sickle Cells Not Reportable 05/17/22 03:41 Target Cells Not Reportable 05/17/22 03:41 Tear Drop Cells Not Reportable 05/17/22 03:41 Ovalocytes Not Reportable 05/17/22 03:41 Helmet Cells Not Reportable 05/17/22 03:41 Patricio-Melwood Bodies Not Reportable 05/17/22 03:41 [place] Rings Not Reportable 05/17/22 03:41 [place] Cells Not Reportable 05/17/22 03:41 Bite Cells Not Reportable 05/17/22 03:41 Crenated Cell Not Reportable 05/17/22 03:41 Elliptocytes Not Reportable 05/17/22 03:41 Acanthocytes (Spur) Not Reportable 05/17/22 03:41 Rouleaux Not Reportable 05/17/22 03:41 Hemoglobin C Crystals Not Reportable 05/17/22 03:41 Schistocytes Not Reportable 05/17/22 03:41 Malaria parasites Not Reportable 05/17/22 03:41 [place] Bodies Not Reportable 05/17/22 03:41 Hem Pathologist Commnt No 05/17/22 03:41 PT 13.6 Sec. (12.2-14.9) 04/13/22 04:30 INR 0.94 (0.87-1.13) 04/13/22 04:30 APTT 35.7 Sec. (24.2-36.6) 04/07/22 03:51 ABG pH 7.385 pH Units (7.350-7.450) 05/19/22 06:10 ABG pCO2 51.9 mm Hg 05/19/22 06:10 ABG pO2 70.5 mm Hg (80.0-90.0) L 05/19/22 06:10 ABG HCO3 30.3 mmol/L (20.0-26.0) H 05/19/22 06:10 ABG O2 Saturation 97.6 % (95.0-99.0) 05/19/22 06:10 ABG O2 Content 8.1 (0.0-44) 05/19/22 06:10 ABG Base Excess 4.9 mmol/L (-2.0-3.0) H 05/19/22 06:10 ABG Hemoglobin 5.9 gm/dl (14.0-18.0) L 05/19/22 06:10 ABG Carboxyhemoglobin 1.5 % (0.0-5.0) 05/19/22 06:10 ABG Methemoglobin 0.4 % (0.0-1.5) 05/19/22 06:10 Oxyhemoglobin 95.8 % (95.0-99.0) 05/19/22 06:10 FiO2 55 % 05/19/22 06:10 Sodium 139 mmol/L (137-145) 05/25/22 00:44 Potassium 4.6 mmol/L (3.6-5.0) 05/25/22 00:44 Chloride 94.8 mmol/L (98-107) L 05/25/22 00:44 Carbon Dioxide 35 mmol/L (22-30) H 05/25/22 00:44 Anion Gap 14 mmol/L 05/25/22 00:44 BUN 17 mg/dL (9-20) 05/25/22 00:44 Creatinine < 0.2 mg/dL (0.8-1.3) L 05/25/22 00:44 Estimated GFR > 60 ml/min 05/25/22 00:44 BUN/Creatinine Ratio 85 % 05/25/22 00:44 Glucose 146 mg/dL (75-100) H 05/25/22 00:44 POC Glucose 142 mg/dL (70-105) H 05/25/22 05:41 Lactic Acid 1.90 mmol/L (0.7-2.0) 04/02/22 19:39 Calcium 8.4 mg/dL (8.4-10.2) 05/25/22 00:44 Phosphorus 2.70 mg/dL (2.5-4.5) 05/22/22 05:49 Magnesium 1.80 mg/dL (1.7-2.3) 05/22/22 05:49 Total Bilirubin 0.80 mg/dL (0.1-1.2) 04/02/22 19:39 AST 15 units/L (5-40) 04/02/22 19:39 ALT 9 units/L (7-56) 04/02/22 19:39 Alkaline Phosphatase 43 units/L (35-129) 04/02/22 19:39 Total Creatine Kinase 46 units/L (55-170) L 04/08/22 17:47 CK-MB (CK-2) 2.6 ng/mL (0.0-4.0) 04/08/22 17:47 CK-MB (CK-2) Rel Index 5.6 (0-4) H 04/08/22 17:47 Troponin T 0.031 ng/mL (0.00-0.029) H 04/08/22 17:47 C-Reactive Protein 31.20 mg/dL (0.00-1.30) H 05/17/22 03:41 Total Protein 4.6 g/dL (6.3-8.2) L 04/02/22 19:39 Albumin 2.7 g/dL (3.9-5) L 04/02/22 19:39 Albumin/Globulin Ratio 1.4 % 04/02/22 19:39 Triglycerides 80 mg/dL (2-149) 04/02/22 19:39 Cholesterol 94 mg/dL (50-199) 04/02/22 19:39 LDL Cholesterol Direct 27 mg/dL (50-130) L 04/02/22 19:39 HDL Cholesterol 47 mg/dL (40-59) 04/02/22 19:39 Cholesterol/HDL Ratio 2.00 % 04/02/22 19:39 Procalcitonin 1.30 ng/mL (<0.15) 05/17/22 03:41 Urine Color Aracely (Yellow) 05/18/22 03:50 Urine Turbidity Clear (Clear) 05/18/22 03:50 Urine pH 5.0 (5.0-7.0) 05/18/22 03:50 Ur Specific [place] 1.030 (1.003-1.030) 05/18/22 03:50 Urine Protein 30 mg/dl mg/dL (Negative) 05/18/22 03:50 Urine Glucose (UA) Neg mg/dL (Negative) 05/18/22 03:50 Urine Ketones Tr mg/dL (Negative) 05/18/22 03:50 Urine Blood Neg (Negative) 05/18/22 03:50 Urine Nitrite Neg (Negative) 05/18/22 03:50 Urine Bilirubin Neg (Negative) 05/18/22 03:50 Urine Urobilinogen < 2.0 mg/dL (<2.0) 05/18/22 03:50 Ur Leukocyte Esterase Neg (Negative) 05/18/22 03:50 Urine WBC (Auto) 1.0 /HPF (0.0-6.0) 05/18/22 03:50 Urine RBC (Auto) 1.0 /HPF (0.0-6.0) 05/18/22 03:50 U Epithel Cells (Auto) 2.0 /HPF (0-13.0) 05/18/22 03:50 Urine Bacteria (Auto) 1+ /HPF (Negative) 05/18/22 03:50 Hyaline Casts 1 /LPF 04/05/22 17:45 Urine Mucus Few /HPF 05/18/22 03:50 Nasal Screen MRSA (PCR) Negative (Negative) 04/05/22 12:37 Vancomycin Trough 16.2 ug/mL (5.0-20.0) 05/20/22 20:41 Coronavirus (PCR) Negative (Negative) 04/07/22 14:52 Blood Type O POSITIVE 05/18/22 13:56 Antibody Screen Negative 05/18/22 13:56 Crossmatch See Detail 05/18/22 13:56 Microbiology: Microbiology 05/19/22 Unknown Buttock Surgical Biopsy Culture - Final Escherichia Coli Pseudomonas Aeruginosa Perez/IV: Voiding Method Condom Catheter Active Medications - Current Medications Current Medications: Generic Name Dose Route Start Last Admin Trade Name Freq PRN Reason Stop Dose Admin Acetaminophen 650 mg 04/02/22 23:53 05/24/22 00:52 Acetaminophen 325 Mg Tab PO 650 mg Q6H PRN Administration Pain MILD(1-3)/Fever >100.5/FAITH Acetylcysteine 200 mg 05/04/22 20:00 05/25/22 08:18 Acetylcysteine 20% 200 Mg/1 Ml *For Inhalation Use* INHALATION 200 mg Q12HRT SEGUNDO Administration Albuterol 2.5 mg 05/05/22 20:00 05/25/22 08:17 Albuterol 2.5 Mg/3 Ml Nebu IH 2.5 mg Q12HRT SEGUNDO Administration Lipase/Protease/Amylase 1 each 05/20/22 15:35 Lipase 10,500/Protease 25,000/Amylase 43,750 (Units) Dr Patterson FEEDTUBE PRN PRN For Clogged Feeding Tube Baclofen 10 mg 05/19/22 20:00 05/25/22 09:26 Baclofen 10 Mg Tab PO 10 mg TID SEGUNDO Administration Bisacodyl 10 mg 04/07/22 09:44 04/12/22 10:06 Bisacodyl 10 Mg Rect Supp [place] 10 mg QDAY PRN Administration Constipation Docusate Sodium 100 mg 05/18/22 22:00 05/24/22 21:10 Docusate Sodium 100 Mg/10 Ml Oral Liqd FEEDTUBE Not Given BID SEGUNDO Famotidine 20 mg 04/06/22 10:00 05/25/22 09:26 Famotidine 20 Mg Tab FEEDTUBE 20 mg BID SEGUNDO Administration Fentanyl 50 mcg 04/04/22 15:56 05/19/22 21:24 Fentanyl 100 Mcg/2 Ml Inj IV 50 mcg Q2HR PRN Administration For CPOT of greater than 3 Heparin Sodium (Porcine) 5,000 unit 04/03/22 06:00 05/25/22 05:45 Heparin 5,000 Unit/1 Ml Vial SUB-Q 5,000 unit Q8HR SEGUNDO Administration Insulin Human Lispro 0 unit 05/05/22 06:00 05/25/22 05:43 Insulin Lispro 100 Unit/Ml SUB-Q Not Given Q8HR [facility] Protocol Magnesium Hydroxide 30 ml 04/02/22 23:53 Magnesium Hydroxide (Mom) Oral Liqd Udc PO Q4H PRN Constipation Metoprolol Tartrate 12.5 mg 05/03/22 13:00 05/25/22 05:45 Metoprolol Tartrate 25 Mg Tab FEEDTUBE 12.5 mg Q6HR SEGUNDO Administration Ondansetron HCl 4 mg 04/02/22 23:53 Ondansetron 4 Mg/2 Ml Inj IV Q8H PRN Nausea And Vomiting Polyethylene Glycol 17 gm 05/18/22 15:00 05/24/22 12:30 Polyethylene Glycol 3350 17 Gm Powder FEEDTUBE Not Given QDAY [facility] Quetiapine Fumarate 50 mg 05/13/22 11:00 05/25/22 09:26 Quetiapine 100 Mg Tab FEEDTUBE 50 mg BID SEGUNDO Administration Scopolamine 1 each 05/12/22 09:00 05/24/22 09:35 Scopolamine Transdermal Patch 72 Hr TD 1 each Q3D SEGUNDO Administration Senna 8.8 mg 05/18/22 22:00 05/24/22 21:10 Sennosides Oral Liqd 8.8 Mg/5 Ml Oral Liqd FEEDTUBE Not Given QHS SEGUNDO Simple Syrup 15 ml 05/20/22 15:35 Simple Syrup 15 Ml FEEDTUBE PRN PRN Hypoglycemia Simple Syrup 30 ml 05/20/22 15:35 Simple Syrup 15 Ml FEEDTUBE PRN PRN Hypoglycemia Sodium Bicarbonate 325 mg 05/20/22 15:35 Sodium Bicarbonate 325 Mg Tab FEEDTUBE PRN PRN For Clogged Feeding Tube Sodium Chloride 10 ml 04/03/22 10:00 05/25/22 09:27 Sodium Chloride 0.9% 10 Ml Flush Syringe IV 10 ml BID SEGUNDO Administration Sodium Chloride 10 ml 04/02/22 23:53 05/16/22 05:10 Sodium Chloride 0.9% 10 Ml Flush Syringe IV 10 ml PRN PRN Administration LINE FLUSH Nutrition/Malnutrition Assess - Dietary Evaluation Nutrition/Malnutrition Findings: Nutrition Notes Start: 04/04/22 13:13 Freq: Status: Active Protocol: Document 05/20/22 15:20 COLLEEN (Rec: 05/20/22 15:36 COLLEEN [id number]) Nutrition Notes Initial or Follow up Brief Note Current Diagnosis Coronary Artery Disease, Decubitus(Pressure Ulcer), Sepsis,Respiratory Failure, Malnutrition Other Pertinent Diagnosis HCAP, ALS, Broncopneumonia, NSTEMI, Cardiomyopathy, ... Current Diet TF-Osmolite 1.5 Inderjit @ 55 ml/hr (since D 05/19). Height 5 ft 4.8 in Weight 48.6 kg [place] Body Weight (kg) 61.27 BMI 17.9 Weight change and time frame No body weight change reported in 3 days. Weight Status Underweight Subjective/Other Information RD consult for routine F/U on TF tolerance/continuation. Pt resumed Osmolite yesterday, but order was not place in Chart, I will procede to place the order. Percent of energy/protein needs met: Prescribed TF-Osmolite 1.5 Inderjit @ 55 ml/hr provides for energy/protein needs (1,980 Kcal/83 g) during LOS, 102% Kcal; 100% AA. #1 Nutrition Diagnosis Inadequate oral intake Diagnosis Progress(for reassessment Continues documentation) Is patient on ventilator? Yes Is Patient Ambulatory and/or Out of Bed No REE-(Mosinee-St. Jeor-confined to bed) 1498.320 Kcal/Kg value to use for calculation 40 Approximate Energy Requirements Using 1944 kcal/Kg Calculation Used for Recommendations Kcal/kg Additional Notes Protein: 1.5-2 g/Kg ABW; 73-98 g/day. Fluids: 1 ml/Kcal, or as per MD. Nutrition Intervention Nutrition Support: Continue TF-Osmolite 1.5 Inderjit @ 55 ml/hr. Flush: 150 ml water Q 4 hr, or as per MD. Kcal 1,980 Protein (gm) 83 Carbohydrates (gm) 269 Fat (gm) 65 Fluid (mL) 1,006 Fiber (gm) 0 % RDI: 102% Kcal; 100% AA. Goal #1 Provide at least 75% of energy /protein needs through Enteral Feeding during LOS. Follow-Up By: 05/27/22 Additional Comments Continue monitoring TF tolerance and BM. <DIXIE BROWN - Last Filed: 05/26/22 07:29> Assessment and Plan Assessment and plan: I saw and evaluated the patient. I agree with the findings and the plan of care as documented in the Nurse Practitioner's~note, with the following corrections and additions. Hospitalist Physical - Constitutional Vitals: Temp Pulse Resp BP Pulse Ox 98.3 F 103 H 28 H 105/86 99 05/26/22 04:00 05/26/22 06:00 05/26/22 06:00 05/26/22 06:00 05/26/22 06:00 HEART Score - HEART Score Troponin: Troponin T 0.031 ng/mL (0.00-0.029) H 04/08/22 17:47 Results - Labs CBC & Chem 7: 05/26/22 00:31 05/26/22 00:31 Labs: Laboratory Last Values WBC 9.2 K/mm3 (4.5-11.0) 05/26/22 00:31 RBC 2.82 M/mm3 (3.65-5.03) L 05/26/22 00:31 Hgb 7.6 gm/dl (11.8-15.2) L 05/26/22 00:31 Hct 23.9 % (35.5-45.6) L 05/26/22 00:31 MCV 85 fl (84-94) 05/26/22 00:31 MCH 27 pg (28-32) L 05/26/22 00:31 MCHC 32 % (32-34) 05/26/22 00:31 RDW 17.4 % (13.2-15.2) H 05/26/22 00:31 Plt Count 360 K/mm3 (140-440) 05/26/22 00:31 Lymph % (Auto) 11.9 % (13.4-35.0) L 05/25/22 13:51 [place] % (Auto) 5.6 % (0.0-7.3) 05/25/22 13:51 Eos % (Auto) 0.9 % (0.0-4.3) 05/25/22 13:51 Baso % (Auto) 0.4 % (0.0-1.8) 05/25/22 13:51 Lymph # (Auto) 1.2 K/mm3 (1.2-5.4) 05/25/22 13:51 [place] # (Auto) 0.6 K/mm3 (0.0-0.8) 05/25/22 13:51 Eos # (Auto) 0.1 K/mm3 (0.0-0.4) 05/25/22 13:51 Baso # (Auto) 0.0 K/mm3 (0.0-0.1) 05/25/22 13:51 Add Manual Diff Complete 05/17/22 03:41 Total Counted 100 05/17/22 03:41 Seg Neutrophils % 81.2 % (40.0-70.0) H 05/25/22 13:51 Seg Neuts % (Manual) 96.0 % (40.0-70.0) H 05/17/22 03:41 Band Neutrophils % 0 % 05/17/22 03:41 Lymphocytes % (Manual) 1.0 % (13.4-35.0) L 05/17/22 03:41 Reactive Lymphs % (Man) 0 % 05/17/22 03:41 Monocytes % (Manual) 3.0 % (0.0-7.3) 05/17/22 03:41 Eosinophils % (Manual) 0 % (0.0-4.3) 05/17/22 03:41 Basophils % (Manual) 0 % (0.0-1.8) 05/17/22 03:41 Metamyelocytes % 0 % 05/17/22 03:41 Myelocytes % 0 % 05/17/22 03:41 Promyelocytes % 0 % 05/17/22 03:41 Blast Cells % 0 % 05/17/22 03:41 Nucleated RBC % Not Reportable 05/17/22 03:41 Seg Neutrophils # 8.4 K/mm3 (1.8-7.7) H 05/25/22 13:51 Seg Neutrophils # Man 15.6 K/mm3 (1.8-7.7) H 05/17/22 03:41 Band Neutrophils # 0.0 K/mm3 05/17/22 03:41 Lymphocytes # (Manual) 0.2 K/mm3 (1.2-5.4) L 05/17/22 03:41 Abs React Lymphs (Man) 0.0 K/mm3 05/17/22 03:41 Monocytes # (Manual) 0.5 K/mm3 (0.0-0.8) 05/17/22 03:41 Eosinophils # (Manual) 0.0 K/mm3 (0.0-0.4) 05/17/22 03:41 Basophils # (Manual) 0.0 K/mm3 (0.0-0.1) 05/17/22 03:41 Metamyelocytes # 0.0 K/mm3 05/17/22 03:41 Myelocytes # 0.0 K/mm3 05/17/22 03:41 Promyelocytes # 0.0 K/mm3 05/17/22 03:41 Blast Cells # 0.0 K/mm3 05/17/22 03:41 WBC Morphology Not Reportable 05/17/22 03:41 Hypersegmented Neuts Not Reportable 05/17/22 03:41 Hyposegmented Neuts Not Reportable 05/17/22 03:41 Hypogranular Neuts Not Reportable 05/17/22 03:41 Smudge Cells Not Reportable 05/17/22 03:41 Toxic Granulation Not Reportable 05/17/22 03:41 Toxic Vacuolation Not Reportable 05/17/22 03:41 Dohle Bodies Not Reportable 05/17/22 03:41 Pelger-Huet Anomaly Not Reportable 05/17/22 03:41 Terry Rods Not Reportable 05/17/22 03:41 Platelet Estimate Consistent w auto 05/17/22 03:41 Clumped Platelets Not Reportable 05/17/22 03:41 Plt Clumps, EDTA Not Reportable 05/17/22 03:41 Large Platelets Not Reportable 05/17/22 03:41 Giant Platelets Not Reportable 05/17/22 03:41 Platelet Satelliting Not Reportable 05/17/22 03:41 Plt Morphology Comment Not Reportable 05/17/22 03:41 RBC Morphology Not Reportable 05/17/22 03:41 Dimorphic RBCs Not Reportable 05/17/22 03:41 Polychromasia Not Reportable 05/17/22 03:41 Hypochromasia Not Reportable 05/17/22 03:41 Poikilocytosis Not Reportable 05/17/22 03:41 Anisocytosis 1+ 05/17/22 03:41 Microcytosis Not Reportable 05/17/22 03:41 Macrocytosis Not Reportable 05/17/22 03:41 Spherocytes Not Reportable 05/17/22 03:41 Pappenheimer Bodies Not Reportable 05/17/22 03:41 Sickle Cells Not Reportable 05/17/22 03:41 Target Cells Not Reportable 05/17/22 03:41 Tear Drop Cells Not Reportable 05/17/22 03:41 Ovalocytes Not Reportable 05/17/22 03:41 Helmet Cells Not Reportable 05/17/22 03:41 Patricio-Melwood Bodies Not Reportable 05/17/22 03:41 [place] Rings Not Reportable 05/17/22 03:41 [place] Cells Not Reportable 05/17/22 03:41 Bite Cells Not Reportable 05/17/22 03:41 Crenated Cell Not Reportable 05/17/22 03:41 Elliptocytes Not Reportable 05/17/22 03:41 Acanthocytes (Spur) Not Reportable 05/17/22 03:41 Rouleaux Not Reportable 05/17/22 03:41 Hemoglobin C Crystals Not Reportable 05/17/22 03:41 Schistocytes Not Reportable 05/17/22 03:41 Malaria parasites Not Reportable 05/17/22 03:41 [place] Bodies Not Reportable 05/17/22 03:41 Hem Pathologist Commnt No 05/17/22 03:41 PT 13.6 Sec. (12.2-14.9) 04/13/22 04:30 INR 0.94 (0.87-1.13) 04/13/22 04:30 APTT 35.7 Sec. (24.2-36.6) 04/07/22 03:51 ABG pH 7.385 pH Units (7.350-7.450) 05/19/22 06:10 ABG pCO2 51.9 mm Hg 05/19/22 06:10 ABG pO2 70.5 mm Hg (80.0-90.0) L 05/19/22 06:10 ABG HCO3 30.3 mmol/L (20.0-26.0) H 05/19/22 06:10 ABG O2 Saturation 97.6 % (95.0-99.0) 05/19/22 06:10 ABG O2 Content 8.1 (0.0-44) 05/19/22 06:10 ABG Base Excess 4.9 mmol/L (-2.0-3.0) H 05/19/22 06:10 ABG Hemoglobin 5.9 gm/dl (14.0-18.0) L 05/19/22 06:10 ABG Carboxyhemoglobin 1.5 % (0.0-5.0) 05/19/22 06:10 ABG Methemoglobin 0.4 % (0.0-1.5) 05/19/22 06:10 Oxyhemoglobin 95.8 % (95.0-99.0) 05/19/22 06:10 FiO2 55 % 05/19/22 06:10 Sodium 134 mmol/L (137-145) L 05/26/22 00:31 Potassium 4.5 mmol/L (3.6-5.0) 05/26/22 00:31 Chloride 92.4 mmol/L (98-107) L 05/26/22 00:31 Carbon Dioxide 37 mmol/L (22-30) H 05/26/22 00:31 Anion Gap 9 mmol/L 05/26/22 00:31 BUN 16 mg/dL (9-20) 05/26/22 00:31 Creatinine < 0.2 mg/dL (0.8-1.3) L 05/26/22 00:31 Estimated GFR > 60 ml/min 05/26/22 00:31 BUN/Creatinine Ratio 80 % 05/26/22 00:31 Glucose 140 mg/dL (75-100) H 05/26/22 00:31 POC Glucose 111 mg/dL (70-105) H 05/26/22 05:02 Lactic Acid 1.90 mmol/L (0.7-2.0) 04/02/22 19:39 Calcium 8.2 mg/dL (8.4-10.2) L 05/26/22 00:31 Phosphorus 2.70 mg/dL (2.5-4.5) 05/22/22 05:49 Magnesium 1.80 mg/dL (1.7-2.3) 05/22/22 05:49 Total Bilirubin 0.80 mg/dL (0.1-1.2) 04/02/22 19:39 AST 15 units/L (5-40) 04/02/22 19:39 ALT 9 units/L (7-56) 04/02/22 19:39 Alkaline Phosphatase 43 units/L (35-129) 04/02/22 19:39 Total Creatine Kinase 46 units/L (55-170) L 04/08/22 17:47 CK-MB (CK-2) 2.6 ng/mL (0.0-4.0) 04/08/22 17:47 CK-MB (CK-2) Rel Index 5.6 (0-4) H 04/08/22 17:47 Troponin T 0.031 ng/mL (0.00-0.029) H 04/08/22 17:47 C-Reactive Protein 31.20 mg/dL (0.00-1.30) H 05/17/22 03:41 Total Protein 4.6 g/dL (6.3-8.2) L 04/02/22 19:39 Albumin 2.7 g/dL (3.9-5) L 04/02/22 19:39 Albumin/Globulin Ratio 1.4 % 04/02/22 19:39 Triglycerides 80 mg/dL (2-149) 04/02/22 19:39 Cholesterol 94 mg/dL (50-199) 04/02/22 19:39 LDL Cholesterol Direct 27 mg/dL (50-130) L 04/02/22 19:39 HDL Cholesterol 47 mg/dL (40-59) 04/02/22 19:39 Cholesterol/HDL Ratio 2.00 % 04/02/22 19:39 Procalcitonin 1.30 ng/mL (<0.15) 05/17/22 03:41 Urine Color Arac[place] (Yellow) 05/18/22 03:50 Urine Turbidity Clear (Clear) 05/18/22 03:50 Urine pH 5.0 (5.0-7.0) 05/18/22 03:50 Ur Specific [place] 1.030 (1.003-1.030) 05/18/22 03:50 Urine Protein 30 mg/dl mg/dL (Negative) 05/18/22 03:50 Urine Glucose (UA) Neg mg/dL (Negative) 05/18/22 03:50 Urine Ketones Tr mg/dL (Negative) 05/18/22 03:50 Urine Blood Neg (Negative) 05/18/22 03:50 Urine Nitrite Neg (Negative) 05/18/22 03:50 Urine Bilirubin Neg (Negative) 05/18/22 03:50 Urine Urobilinogen < 2.0 mg/dL (<2.0) 05/18/22 03:50 Ur Leukocyte Esterase Neg (Negative) 05/18/22 03:50 Urine WBC (Auto) 1.0 /HPF (0.0-6.0) 05/18/22 03:50 Urine RBC (Auto) 1.0 /HPF (0.0-6.0) 05/18/22 03:50 U Epithel Cells (Auto) 2.0 /HPF (0-13.0) 05/18/22 03:50 Urine Bacteria (Auto) 1+ /HPF (Negative) 05/18/22 03:50 Hyaline Casts 1 /LPF 04/05/22 17:45 Urine Mucus Few /HPF 05/18/22 03:50 Nasal Screen MRSA (PCR) Negative (Negative) 04/05/22 12:37 Vancomycin Trough 16.2 ug/mL (5.0-20.0) 05/20/22 20:41 Coronavirus (PCR) Negative (Negative) 04/07/22 14:52 Blood Type O POSITIVE 05/18/22 13:56 Antibody Screen Negative 05/18/22 13:56 Crossmatch See Detail 05/18/22 13:56 Perez/IV: Voiding Method Condom Catheter Active Medications - Current Medications Current Medications: Generic Name Dose Route Start Last Admin Trade Name Freq PRN Reason Stop Dose Admin Acetaminophen 650 mg 04/02/22 23:53 05/24/22 00:52 Acetaminophen 325 Mg Tab PO 650 mg Q6H PRN Administration Pain MILD(1-3)/Fever >100.5/FAITH Acetylcysteine 200 mg 05/04/22 20:00 05/25/22 20:31 Acetylcysteine 20% 200 Mg/1 Ml *For Inhalation Use* INHALATION 200 mg Q12HRT SEGUNDO Administration Albuterol 2.5 mg 05/05/22 20:00 05/25/22 20:32 Albuterol 2.5 Mg/3 Ml Nebu IH 2.5 mg Q12HRT SEGUNDO Administration Lipase/Protease/Amylase 1 each 05/20/22 15:35 Lipase 10,500/Protease 25,000/Amylase 43,750 (Units) Dr Patterson FEEDTUBE PRN PRN For Clogged Feeding Tube Baclofen 10 mg 05/19/22 20:00 05/25/22 19:58 Baclofen 10 Mg Tab PO 10 mg TID SEGUNDO Administration Bisacodyl 10 mg 04/07/22 09:44 04/12/22 10:06 Bisacodyl 10 Mg Rect Supp NJ 10 mg QDAY PRN Administration Constipation Docusate Sodium 100 mg 05/18/22 22:00 05/25/22 21:02 Docusate Sodium 100 Mg/10 Ml Oral Liqd FEEDTUBE Not Given BID SEGUNDO Famotidine 20 mg 04/06/22 10:00 05/25/22 21:07 Famotidine 20 Mg Tab FEEDTUBE 20 mg BID SEGUNDO Administration Fentanyl 50 mcg 04/04/22 15:56 05/19/22 21:24 Fentanyl 100 Mcg/2 Ml Inj IV 50 mcg Q2HR PRN Administration For CPOT of greater than 3 Heparin Sodium (Porcine) 5,000 unit 04/03/22 06:00 05/26/22 05:09 Heparin 5,000 Unit/1 Ml Vial SUB-Q 5,000 unit Q8HR [facility] Administration Insulin Human Lispro 0 unit 05/05/22 06:00 05/26/22 05:05 Insulin Lispro 100 Unit/Ml SUB-Q Not Given Q8HR [facility] Protocol Magnesium Hydroxide 30 ml 04/02/22 23:53 Magnesium Hydroxide (Mom) Oral Liqd Udc PO Q4H PRN Constipation Metoprolol Tartrate 12.5 mg 05/03/22 13:00 05/26/22 05:04 Metoprolol Tartrate 25 Mg Tab FEEDTUBE Not Given Q6HR [facility] Ondansetron HCl 4 mg 04/02/22 23:53 Ondansetron 4 Mg/2 Ml Inj IV Q8H PRN Nausea And Vomiting Polyethylene Glycol 17 gm 05/18/22 15:00 05/25/22 17:43 Polyethylene Glycol 3350 17 Gm Powder FEEDTUBE Not Given QDAY SEGUNDO Quetiapine Fumarate 50 mg 05/13/22 11:00 05/25/22 21:07 Quetiapine 100 Mg Tab FEEDTUBE 50 mg BID SEGUNDO Administration Scopolamine 1 each 05/12/22 09:00 05/24/22 09:35 Scopolamine Transdermal Patch 72 Hr TD 1 each Q3D SEGUNDO Administration Senna 8.8 mg 05/18/22 22:00 05/25/22 21:02 Sennosides Oral Liqd 8.8 Mg/5 Ml Oral Liqd FEEDTUBE Not Given QHS SEGUNDO Simple Syrup 15 ml 05/20/22 15:35 Simple Syrup 15 Ml FEEDTUBE PRN PRN Hypoglycemia Simple Syrup 30 ml 05/20/22 15:35 Simple Syrup 15 Ml FEEDTUBE PRN PRN Hypoglycemia Sodium Bicarbonate 325 mg 05/20/22 15:35 Sodium Bicarbonate 325 Mg Tab FEEDTUBE PRN PRN For Clogged Feeding Tube Sodium Chloride 10 ml 04/03/22 10:00 05/25/22 21:07 Sodium Chloride 0.9% 10 Ml Flush Syringe IV 10 ml BID SEGUNDO Administration Sodium Chloride 10 ml 04/02/22 23:53 05/16/22 05:10 Sodium Chloride 0.9% 10 Ml Flush Syringe IV 10 ml PRN PRN Administration LINE FLUSH Nutrition/Malnutrition Assess - Dietary Evaluation Nutrition/Malnutrition Findings: Nutrition Notes Start: 04/04/22 13:13 Freq: Status: Active Protocol: Document 05/20/22 15:20 COLLEEN (Rec: 05/20/22 15:36 COLLEEN [email or web address]) Nutrition Notes Initial or Follow up Brief Note Current Diagnosis Coronary Artery Disease, Decubitus(Pressure Ulcer), Sepsis,Respiratory Failure, Malnutrition Other Pertinent Diagnosis HCAP, ALS, Broncopneumonia, NSTEMI, Cardiomyopathy, ... Current Diet TF-Osmolite 1.5 Inderjit @ 55 ml/hr (since D 05/19). Height 5 ft 4.8 in Weight 48.6 kg [place] Body Weight (kg) 61.27 BMI 17.9 Weight change and time frame No body weight change reported in 3 days. Weight Status Underweight Subjective/Other Information RD consult for routine F/U on TF tolerance/continuation. Pt resumed Osmolite yesterday, but order was not place in Chart, I will procede to place the order. Percent of energy/protein needs met: Prescribed TF-Osmolite 1.5 Inderjit @ 55 ml/hr provides for energy/protein needs (1,980 Kcal/83 g) during LOS, 102% Kcal; 100% AA. #1 Nutrition Diagnosis Inadequate oral intake Diagnosis Progress(for reassessment Continues documentation) Is patient on ventilator? Yes Is Patient Ambulatory and/or Out of Bed No REE-([facility]-confined to bed) 1498.320 Kcal/Kg value to use for calculation 40 Approximate Energy Requirements Using 1944 kcal/Kg Calculation Used for Recommendations Kcal/kg Additional Notes Protein: 1.5-2 g/Kg ABW; 73-98 g/day. Fluids: 1 ml/Kcal, or as per MD. Nutrition Intervention Nutrition Support: Continue TF-Osmolite 1.5 Indrejit @ 55 ml/hr. Flush: 150 ml water Q 4 hr, or as per MD. Kcal 1,980 Protein (gm) 83 Carbohydrates (gm) 269 Fat (gm) 65 Fluid (mL) 1,006 Fiber (gm) 0 % RDI: 102% Kcal; 100% AA. Goal #1 Provide at least 75% of energy /protein needs through Enteral Feeding during LOS. Follow-Up By: 05/27/22 Additional Comments Continue monitoring TF tolerance and BM.
--- NOTE | 2022-05-25 14:06 | Event Note ---
Date: 05/25/22 Patient has significant history of ALS and as a result has remained on mechanical ventilation. Due to underlying neurological condition patient will require HFCWO vest. The patient has had trials of CoughAssist therapy with flutter wave CPT multiple suctioning while in the hospital but all of these have unfortunately failed to resolve his current condition and will benefit from the HFCWO vest.
[2022-05-25 14:24] LABS: Basophils % (Auto) 0.4 % (0.0-1.8); Eosinophils # (Auto) 0.1 K/mm3 (0.0-0.4); Eosinophils % (Auto) 0.9 % (0.0-4.3); Hematocrit 24.4 % (35.5-45.6); Hemoglobin 7.8 gm/dl (11.8-15.2); Lymphocytes # (Auto) 1.2 K/mm3 (1.2-5.4); Lymphocytes % (Auto) 11.9 % (13.4-35.0); Mean Corpuscular HGB Conc 32 % (32-34); Mean Corpuscular Volume 85 fl (84-94); Monocytes # (Auto) 0.6 K/mm3 (0.0-0.8); Monocytes % (Auto) 5.6 % (0.0-7.3); Platelet Count 332 K/mm3 (140-440); Red Blood Count 2.87 M/mm3 (3.65-5.03); Red Cell Distribution Width 17.1 % (13.2-15.2)
--- NOTE | 2022-05-25 16:28 | Progress Note ---
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 Home vent setting- Tidal volume 500, PEEP 10 and liter flow of 10 Can titrat dwon liter flow to keep O2 sats >92% Will evalute in am- may need one dose of Lasix Relace Perez catheter, the patient was found soaked in urine . Perez is indicated to help facilitate wound healing- Unstageable sacral decub, on wound vac -Trach care, airway clearance, -continue with bronchodilators and chest PT -Continue with mucolytics and chest PT -Titrate supplemental oxygen to keep SpO2 89-92% -VAP bundle addressed, aspiration precautions HOB >40 -antibiotics, ID following -Trend temperature curve and WCC -keep K >3.5; Mg at 2 and Phos >2.5 to optimize respiratory muscle function -Monitoring renal function, hemodynamics and electrolyte profile -Accuchecks with glycemic control. target blood glucose 140-180 mg/dL. Avoid hypoglycemia -Continue enteric nutritional support, bowel regimen -VTE prophylaxis- Heparin -Avoid nephrotoxins and renally dose all medications -Stress ulcer prophylaxis- Famotidine -Mobility, frequent turning, off loading per facility protocol to prevent pressure ulcers -Maintain sleep wake cycle, avoid benzodiazepines. -Limit delirium CONDITION:CRITICAL PROGNOSIS: GUARDED CODE STATUS; FULL CODE The high probability of a clinically significant, sudden or life threatening deterioration of the respiratory, cardiovascular, neurology system required my full and direct attention, intervention and personal management. The aggregate critical care time was [33] minutes. 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 Vitals, labs, medications, chart and imaging reviewed. Discussed with respiratory and nursing care staff. s/p trach and PEG. On Hospital vent, PEEP +8/FIO2 45% No fevers For wound vac change at the bedside on morning an d removal of Mesh Objective Vital Signs - 12hr 05/25/22 05/25/22 05/25/22 04:35 05:00 05:45 Temperature Pulse Rate 116 H 111 H 103 H Pulse Rate [ Bilateral Throughout] Pulse Rate [ From Monitor] Respiratory 3 L 20 Rate Respiratory Rate [Bilateral Throughout] Blood Pressure 123/77 110/71 110/71 O2 Sat by Pulse 92 Oximetry O2 Sat by Pulse Oximetry [ Assessment] 05/25/22 05/25/22 05/25/22 06:00 07:00 08:00 Temperature 99 F Pulse Rate 98 H 107 H 102 H Pulse Rate [ Bilateral Throughout] Pulse Rate [ 110 H From Monitor] Respiratory 17 20 14 Rate Respiratory Rate [Bilateral Throughout] Blood Pressure 103/62 112/79 107/67 O2 Sat by Pulse 90 89 95 Oximetry O2 Sat by Pulse Oximetry [ Assessment] 05/25/22 05/25/22 05/25/22 08:10 08:19 08:31 Temperature Pulse Rate 98 H Pulse Rate [ 100 H Bilateral Throughout] Pulse Rate [ From Monitor] Respiratory Rate Respiratory 14 Rate [Bilateral Throughout] Blood Pressure 107/67 O2 Sat by Pulse 98 Oximetry O2 Sat by Pulse 100 Oximetry [ Assessment] 05/25/22 05/25/22 05/25/22 09:00 10:00 11:00 Temperature Pulse Rate 97 H 100 H 103 H Pulse Rate [ Bilateral Throughout] Pulse Rate [ From Monitor] Respiratory 17 14 18 Rate Respiratory Rate [Bilateral Throughout] Blood Pressure 102/61 91/57 111/70 O2 Sat by Pulse 97 96 99 Oximetry O2 Sat by Pulse Oximetry [ Assessment] 05/25/22 05/25/22 05/25/22 12:00 13:00 14:00 Temperature 97.4 F L Pulse Rate 98 H 103 H 106 H Pulse Rate [ Bilateral Throughout] Pulse Rate [ 102 H From Monitor] Respiratory 14 14 15 Rate Respiratory Rate [Bilateral Throughout] Blood Pressure 108/67 103/68 107/62 O2 Sat by Pulse 95 95 95 Oximetry O2 Sat by Pulse Oximetry [ Assessment] Constitutional: no acute distress, alert, other (resting in bed with mildly increased respiratory effort at rest) Eyes: non-icteric ENT: oropharynx moist, other (+ midline tracheostomy to home vent) Neck: supple, no lymphadenopathy, no JVD Effort: mildly labored Ascultation: Bilateral: diminished breath sounds (bases), rhonchi Percussion: Bilateral: not dull Cardiovascular: regular rate and rhythm, other (S1,S2) Gastrointestinal: normoactive bowel sounds, soft, non-tender, non-distended Integumentary: normal, decubitus ulcer (see wound care pictures- wound vac) Extremities: no cyanosis, no edema, pink and warm, pulses normal Neurologic: pupils equal and round, other (functional quadriplegia) Psychiatric: mood appropriate, affect normal CBC and BMP: 05/26/22 00:31 05/26/22 00:31 ABG, PT/INR, D-dimer: ABG ABG pH 7.385 pH Units (7.350-7.450) 05/19/22 06:10 ABG pCO2 51.9 mm Hg 05/19/22 06:10 ABG pO2 70.5 mm Hg (80.0-90.0) L 05/19/22 06:10 ABG O2 Saturation 97.6 % (95.0-99.0) 05/19/22 06:10 PT/INR, D-dimer PT 13.6 Sec. (12.2-14.9) 04/13/22 04:30 INR 0.94 (0.87-1.13) 04/13/22 04:30 Abnormal lab findings: Abnormal Labs 04/02/22 04/02/22 04/02/22 19:39 19:39 19:39 WBC 14.3 H RBC Hgb Hct MCV 96 H MCH MCHC RDW Plt Count 104 L Lymph % (Auto) [place] % (Auto) Lymph # (Auto) [place] # (Auto) Seg Neutrophils % Seg Neuts % (Manual) 94.0 H Lymphocytes % (Manual) 1.0 L Seg Neutrophils # Seg Neutrophils # Man 13.4 H Lymphocytes # (Manual) 0.1 L PT 15.9 H INR 1.14 H ABG pH ABG pO2 ABG HCO3 ABG O2 Saturation ABG Base Excess ABG Hemoglobin Oxyhemoglobin Sodium 151 H Potassium Chloride Carbon Dioxide BUN Creatinine 0.5 L Glucose POC Glucose Calcium 8.2 L Phosphorus Magnesium 1.60 L Total Creatine Kinase CK-MB (CK-2) Rel Index Troponin T 0.048 H C-Reactive Protein Total Protein 4.6 L Albumin 2.7 L LDL Cholesterol Direct 27 L Urine WBC (Auto) Crossmatch 04/02/22 04/03/22 04/03/22 19:42 05:14 06:30 WBC RBC Hgb Hct MCV MCH MCHC RDW Plt Count Lymph % (Auto) [place] % (Auto) Lymph # (Auto) [place] # (Auto) Seg Neutrophils % Seg Neuts % (Manual) Lymphocytes % (Manual) Seg Neutrophils # Seg Neutrophils # Man Lymphocytes # (Manual) PT INR ABG pH 7.471 H 7.496 H ABG pO2 47.8 L 91.0 H ABG HCO3 30.6 H ABG O2 Saturation 94.4 L ABG Base Excess 6.2 H ABG Hemoglobin 11.0 L 12.8 L Oxyhemoglobin 93.1 L Sodium 149 H Potassium 3.4 L Chloride Carbon Dioxide BUN Creatinine 0.4 L Glucose POC Glucose Calcium Phosphorus Magnesium Total Creatine Kinase CK-MB (CK-2) Rel Index Troponin T C-Reactive Protein Total Protein Albumin LDL Cholesterol Direct Urine WBC (Auto) Crossmatch 04/04/22 04/04/22 04/04/22 04:18 04:18 05:50 WBC 11.8 H RBC Hgb Hct MCV MCH MCHC RDW Plt Count 132 L Lymph % (Auto) [place] % (Auto) Lymph # (Auto) [place] # (Auto) Seg Neutrophils % Seg Neuts % (Manual) Lymphocytes % (Manual) Seg Neutrophils # Seg Neutrophils # Man Lymphocytes # (Manual) PT INR ABG pH 7.517 H ABG pO2 115.5 H ABG HCO3 29.9 H ABG O2 Saturation ABG Base Excess 6.7 H ABG Hemoglobin 12.3 L Oxyhemoglobin Sodium Potassium 3.5 L Chloride Carbon Dioxide 31 H BUN Creatinine 0.3 L Glucose 153 H POC Glucose Calcium Phosphorus 1.40 L Magnesium 1.50 L Total Creatine Kinase CK-MB (CK-2) Rel Index Troponin T C-Reactive Protein 31.60 H Total Protein Albumin LDL Cholesterol Direct Urine WBC (Auto) Crossmatch 04/05/22 04/05/22 04/05/22 02:50 05:25 11:28 WBC RBC Hgb Hct MCV MCH MCHC RDW Plt Count Lymph % (Auto) [place] % (Auto) Lymph # (Auto) [place] # (Auto) Seg Neutrophils % Seg Neuts % (Manual) Lymphocytes % (Manual) Seg Neutrophils # Seg Neutrophils # Man Lymphocytes # (Manual) PT INR ABG pH 7.455 H ABG pO2 50.7 L ABG HCO3 30.5 H ABG O2 Saturation 89.4 L ABG Base Excess 5.9 H ABG Hemoglobin 11.8 L Oxyhemoglobin 88.2 L Sodium Potassium Chloride Carbon Dioxide 32 H BUN Creatinine 0.2 L Glucose 110 H POC Glucose 124 H Calcium 7.9 L Phosphorus Magnesium Total Creatine Kinase CK-MB (CK-2) Rel Index Troponin T C-Reactive Protein Total Protein Albumin LDL Cholesterol Direct Urine WBC (Auto) Crossmatch 04/05/22 04/05/22 04/06/22 17:45 Unknown 04:00 WBC RBC 3.55 L Hgb 11.1 L 11.5 L Hct 33.2 L 35.1 L MCV MCH MCHC RDW Plt Count 113 L 114 L Lymph % (Auto) [place] % (Auto) Lymph # (Auto) [place] # (Auto) Seg Neutrophils % Seg Neuts % (Manual) Lymphocytes % (Manual) Seg Neutrophils # Seg Neutrophils # Man Lymphocytes # (Manual) PT INR ABG pH ABG pO2 ABG HCO3 ABG O2 Saturation ABG Base Excess ABG Hemoglobin Oxyhemoglobin Sodium Potassium Chloride Carbon Dioxide BUN Creatinine Glucose POC Glucose Calcium Phosphorus Magnesium Total Creatine Kinase CK-MB (CK-2) Rel Index Troponin T C-Reactive Protein Total Protein Albumin LDL Cholesterol Direct Urine WBC (Auto) 8.0 H Crossmatch 04/06/22 04/06/22 04/07/22 04:00 08:30 00:04 WBC RBC Hgb Hct MCV MCH MCHC RDW Plt Count Lymph % (Auto) [place] % (Auto) Lymph # (Auto) [place] # (Auto) Seg Neutrophils % Seg Neuts % (Manual) Lymphocytes % (Manual) Seg Neutrophils # Seg Neutrophils # Man Lymphocytes # (Manual) PT INR ABG pH ABG pO2 60.8 L ABG HCO3 30.5 H ABG O2 Saturation 93.3 L ABG Base Excess 4.9 H ABG Hemoglobin 12.4 L Oxyhemoglobin 92.1 L Sodium Potassium 3.0 L Chloride Carbon Dioxide BUN Creatinine < 0.2 L Glucose 130 H POC Glucose 117 H Calcium 8.1 L Phosphorus Magnesium Total Creatine Kinase CK-MB (CK-2) Rel Index Troponin T C-Reactive Protein Total Protein Albumin LDL Cholesterol Direct Urine WBC (Auto) Crossmatch 04/07/22 04/07/22 04/07/22 03:51 03:51 03:51 WBC 14.6 H RBC 3.57 L Hgb 11.1 L Hct 33.2 L MCV MCH MCHC RDW Plt Count 118 L Lymph % (Auto) 4.3 L [place] % (Auto) 8.8 H Lymph # (Auto) 0.6 L [place] # (Auto) 1.3 H Seg Neutrophils % 86.6 H Seg Neuts % (Manual) Lymphocytes % (Manual) Seg Neutrophils # 12.7 H Seg Neutrophils # Man Lymphocytes # (Manual) PT 15.2 H INR ABG pH ABG pO2 ABG HCO3 ABG O2 Saturation ABG Base Excess ABG Hemoglobin Oxyhemoglobin Sodium 133 L Potassium Chloride 96.0 L Carbon Dioxide 31 H BUN Creatinine 0.2 L Glucose 130 H POC Glucose Calcium 8.0 L Phosphorus Magnesium Total Creatine Kinase CK-MB (CK-2) Rel Index Troponin T C-Reactive Protein Total Protein Albumin LDL Cholesterol Direct Urine WBC (Auto) Crossmatch 04/07/22 04/07/22 04/08/22 04:25 09:10 04:49 WBC 16.1 H RBC 3.54 L Hgb 10.9 L Hct 33.3 L MCV MCH MCHC RDW Plt Count Lymph % (Auto) [place] % (Auto) Lymph # (Auto) [place] # (Auto) Seg Neutrophils % Seg Neuts % (Manual) Lymphocytes % (Manual) Seg Neutrophils # Seg Neutrophils # Man Lymphocytes # (Manual) PT INR ABG pH ABG pO2 71.0 L 63.4 L ABG HCO3 31.5 H 40.0 H ABG O2 Saturation 94.9 L ABG Base Excess 5.9 H 13.6 H ABG Hemoglobin 11.3 L 9.0 L Oxyhemoglobin 93.6 L Sodium Potassium Chloride Carbon Dioxide BUN Creatinine Glucose POC Glucose Calcium Phosphorus Magnesium Total Creatine Kinase CK-MB (CK-2) Rel Index Troponin T C-Reactive Protein Total Protein Albumin LDL Cholesterol Direct Urine WBC (Auto) Crossmatch 04/08/22 04/08/22 04/08/22 04:49 09:53 10:25 WBC RBC Hgb Hct MCV MCH MCHC RDW Plt Count Lymph % (Auto) [place] % (Auto) Lymph # (Auto) [place] # (Auto) Seg Neutrophils % Seg Neuts % (Manual) Lymphocytes % (Manual) Seg Neutrophils # Seg Neutrophils # Man Lymphocytes # (Manual) PT INR ABG pH ABG pO2 ABG HCO3 34.7 H ABG O2 Saturation ABG Base Excess 7.9 H ABG Hemoglobin 11.0 L Oxyhemoglobin Sodium 136 L Potassium Chloride 97.7 L Carbon Dioxide 33 H BUN Creatinine 0.2 L Glucose 155 H POC Glucose Calcium Phosphorus Magnesium Total Creatine Kinase CK-MB (CK-2) Rel Index Troponin T 0.030 H C-Reactive Protein Total Protein Albumin LDL Cholesterol Direct Urine WBC (Auto) Crossmatch 04/08/22 04/08/22 04/08/22 11:19 17:47 18:06 WBC RBC Hgb Hct MCV MCH MCHC RDW Plt Count Lymph % (Auto) [place] % (Auto) Lymph # (Auto) [place] # (Auto) Seg Neutrophils % Seg Neuts % (Manual) Lymphocytes % (Manual) Seg Neutrophils # Seg Neutrophils # Man Lymphocytes # (Manual) PT INR ABG pH ABG pO2 ABG HCO3 ABG O2 Saturation ABG Base Excess ABG Hemoglobin Oxyhemoglobin Sodium Potassium Chloride Carbon Dioxide BUN Creatinine Glucose POC Glucose 121 H Calcium Phosphorus Magnesium Total Creatine Kinase 31 L 46 L CK-MB (CK-2) Rel Index 6.4 H 5.6 H Troponin T 0.030 H 0.031 H C-Reactive Protein Total Protein Albumin LDL Cholesterol Direct Urine WBC (Auto) Crossmatch 04/09/22 04/09/22 04/09/22 04:35 04:35 11:24 WBC 11.5 H RBC 3.16 L Hgb 9.9 L Hct 29.4 L MCV MCH MCHC RDW Plt Count 131 L Lymph % (Auto) [place] % (Auto) Lymph # (Auto) [place] # (Auto) Seg Neutrophils % Seg Neuts % (Manual) Lymphocytes % (Manual) Seg Neutrophils # Seg Neutrophils # Man Lymphocytes # (Manual) PT INR ABG pH ABG pO2 ABG HCO3 ABG O2 Saturation ABG Base Excess ABG Hemoglobin Oxyhemoglobin Sodium Potassium Chloride 97.1 L Carbon Dioxide 35 H BUN Creatinine < 0.2 L Glucose 145 H POC Glucose 147 H Calcium Phosphorus Magnesium Total Creatine Kinase CK-MB (CK-2) Rel Index Troponin T C-Reactive Protein Total Protein Albumin LDL Cholesterol Direct Urine WBC (Auto) Crossmatch 04/09/22 04/09/22 04/09/22 13:00 17:32 23:48 WBC RBC Hgb Hct MCV MCH MCHC RDW Plt Count Lymph % (Auto) [place] % (Auto) Lymph # (Auto) [place] # (Auto) Seg Neutrophils % Seg Neuts % (Manual) Lymphocytes % (Manual) Seg Neutrophils # Seg Neutrophils # Man Lymphocytes # (Manual) PT INR ABG pH ABG pO2 66.6 L ABG HCO3 38.2 H ABG O2 Saturation 94.4 L ABG Base Excess 10.7 H ABG Hemoglobin 10.7 L Oxyhemoglobin 92.8 L Sodium Potassium Chloride Carbon Dioxide BUN Creatinine Glucose POC Glucose 143 H 114 H Calcium Phosphorus Magnesium Total Creatine Kinase CK-MB (CK-2) Rel Index Troponin T C-Reactive Protein Total Protein Albumin LDL Cholesterol Direct Urine WBC (Auto) Crossmatch 04/10/22 04/10/22 04/10/22 04:48 04:48 05:34 WBC RBC 2.91 L Hgb 9.1 L Hct 27.7 L MCV 95 H MCH MCHC RDW Plt Count Lymph % (Auto) [place] % (Auto) Lymph # (Auto) [place] # (Auto) Seg Neutrophils % Seg Neuts % (Manual) Lymphocytes % (Manual) Seg Neutrophils # Seg Neutrophils # Man Lymphocytes # (Manual) PT INR ABG pH ABG pO2 ABG HCO3 ABG O2 Saturation ABG Base Excess ABG Hemoglobin Oxyhemoglobin Sodium Potassium Chloride 95.7 L Carbon Dioxide 38 H BUN Creatinine < 0.2 L Glucose 118 H POC Glucose 127 H Calcium Phosphorus Magnesium Total Creatine Kinase CK-MB (CK-2) Rel Index Troponin T C-Reactive Protein Total Protein Albumin LDL Cholesterol Direct Urine WBC (Auto) Crossmatch 04/10/22 04/11/22 04/11/22 23:10 04:15 04:15 WBC 17.2 H RBC 2.98 L Hgb 9.2 L Hct 27.9 L MCV MCH MCHC RDW Plt Count Lymph % (Auto) [place] % (Auto) Lymph # (Auto) [place] # (Auto) Seg Neutrophils % Seg Neuts % (Manual) Lymphocytes % (Manual) Seg Neutrophils # Seg Neutrophils # Man Lymphocytes # (Manual) PT INR ABG pH ABG pO2 ABG HCO3 ABG O2 Saturation ABG Base Excess ABG Hemoglobin Oxyhemoglobin Sodium Potassium Chloride 96.1 L Carbon Dioxide 35 H BUN Creatinine < 0.2 L Glucose 138 H POC Glucose 106 H Calcium 8.3 L Phosphorus Magnesium Total Creatine Kinase CK-MB (CK-2) Rel Index Troponin T C-Reactive Protein Total Protein Albumin LDL Cholesterol Direct Urine WBC (Auto) Crossmatch 04/11/22 04/11/22 04/11/22 05:31 13:18 16:20 WBC RBC Hgb Hct MCV MCH MCHC RDW Plt Count Lymph % (Auto) [place] % (Auto) Lymph # (Auto) [place] # (Auto) Seg Neutrophils % Seg Neuts % (Manual) Lymphocytes % (Manual) Seg Neutrophils # Seg Neutrophils # Man Lymphocytes # (Manual) PT INR ABG pH ABG pO2 57.8 L ABG HCO3 40.5 H ABG O2 Saturation 90.6 L ABG Base Excess 12.6 H ABG Hemoglobin 10.5 L Oxyhemoglobin 89.0 L Sodium Potassium Chloride Carbon Dioxide BUN Creatinine Glucose POC Glucose 129 H 132 H Calcium Phosphorus Magnesium Total Creatine Kinase CK-MB (CK-2) Rel Index Troponin T C-Reactive Protein Total Protein Albumin LDL Cholesterol Direct Urine WBC (Auto) Crossmatch 04/11/22 04/11/22 04/12/22 17:29 23:17 04:00 WBC 17.4 H RBC 2.96 L Hgb 9.0 L Hct 28.0 L MCV 95 H MCH MCHC RDW Plt Count Lymph % (Auto) [place] % (Auto) Lymph # (Auto) [place] # (Auto) Seg Neutrophils % Seg Neuts % (Manual) Lymphocytes % (Manual) Seg Neutrophils # Seg Neutrophils # Man Lymphocytes # (Manual) PT INR ABG pH ABG pO2 ABG HCO3 ABG O2 Saturation ABG Base Excess ABG Hemoglobin Oxyhemoglobin Sodium Potassium Chloride Carbon Dioxide BUN Creatinine Glucose POC Glucose 125 H 151 H Calcium Phosphorus Magnesium Total Creatine Kinase CK-MB (CK-2) Rel Index Troponin T C-Reactive Protein Total Protein Albumin LDL Cholesterol Direct Urine WBC (Auto) Crossmatch 04/12/22 04/12/22 04/12/22 04:00 17:03 23:39 WBC RBC Hgb Hct MCV MCH MCHC RDW Plt Count Lymph % (Auto) [place] % (Auto) Lymph # (Auto) [place] # (Auto) Seg Neutrophils % Seg Neuts % (Manual) Lymphocytes % (Manual) Seg Neutrophils # Seg Neutrophils # Man Lymphocytes # (Manual) PT INR ABG pH ABG pO2 ABG HCO3 ABG O2 Saturation ABG Base Excess ABG Hemoglobin Oxyhemoglobin Sodium Potassium Chloride 97.4 L Carbon Dioxide 37 H BUN Creatinine < 0.2 L Glucose 127 H POC Glucose 106 H 107 H Calcium Phosphorus Magnesium Total Creatine Kinase CK-MB (CK-2) Rel Index Troponin T C-Reactive Protein Total Protein Albumin LDL Cholesterol Direct Urine WBC (Auto) Crossmatch 04/13/22 04/13/22 04/13/22 04:30 04:30 17:39 WBC 14.1 H RBC 2.66 L Hgb 8.4 L Hct 25.5 L MCV 96 H MCH MCHC RDW Plt Count Lymph % (Auto) [place] % (Auto) Lymph # (Auto) [place] # (Auto) Seg Neutrophils % Seg Neuts % (Manual) Lymphocytes % (Manual) Seg Neutrophils # Seg Neutrophils # Man Lymphocytes # (Manual) PT INR ABG pH ABG pO2 ABG HCO3 ABG O2 Saturation ABG Base Excess ABG Hemoglobin Oxyhemoglobin Sodium Potassium Chloride 93.9 L Carbon Dioxide 39 H BUN Creatinine < 0.2 L Glucose POC Glucose 134 H Calcium Phosphorus 1.90 L Magnesium Total Creatine Kinase CK-MB (CK-2) Rel Index Troponin T C-Reactive Protein Total Protein Albumin LDL Cholesterol Direct Urine WBC (Auto) Crossmatch 04/14/22 04/14/22 04/14/22 05:03 05:03 09:10 WBC 15.6 H RBC 3.02 L Hgb 9.3 L Hct 28.8 L MCV 95 H MCH MCHC RDW Plt Count Lymph % (Auto) [place] % (Auto) Lymph # (Auto) [place] # (Auto) Seg Neutrophils % Seg Neuts % (Manual) Lymphocytes % (Manual) Seg Neutrophils # Seg Neutrophils # Man Lymphocytes # (Manual) PT INR ABG pH ABG pO2 66.9 L ABG HCO3 44.5 H ABG O2 Saturation ABG Base Excess 17.2 H ABG Hemoglobin 8.1 L Oxyhemoglobin 94.8 L Sodium Potassium Chloride 93.8 L Carbon Dioxide 42 H* BUN Creatinine < 0.2 L Glucose 117 H POC Glucose Calcium Phosphorus Magnesium Total Creatine Kinase CK-MB (CK-2) Rel Index Troponin T C-Reactive Protein Total Protein Albumin LDL Cholesterol Direct Urine WBC (Auto) Crossmatch 04/15/22 04/15/22 04/16/22 04:44 04:44 04:16 WBC 13.0 H 12.6 H RBC 3.19 L 3.09 L Hgb 9.6 L 9.5 L Hct 30.2 L 29.1 L MCV 95 H MCH MCHC RDW Plt Count 456 H Lymph % (Auto) [place] % (Auto) Lymph # (Auto) [place] # (Auto) Seg Neutrophils % Seg Neuts % (Manual) Lymphocytes % (Manual) Seg Neutrophils # Seg Neutrophils # Man Lymphocytes # (Manual) PT INR ABG pH ABG pO2 ABG HCO3 ABG O2 Saturation ABG Base Excess ABG Hemoglobin Oxyhemoglobin Sodium Potassium Chloride 95.5 L Carbon Dioxide 37 H BUN Creatinine < 0.2 L Glucose POC Glucose Calcium Phosphorus Magnesium Total Creatine Kinase CK-MB (CK-2) Rel Index Troponin T C-Reactive Protein Total Protein Albumin LDL Cholesterol Direct Urine WBC (Auto) Crossmatch 04/16/22 04/16/22 04/16/22 04:16 05:00 14:00 WBC RBC Hgb Hct MCV MCH MCHC RDW Plt Count Lymph % (Auto) [place] % (Auto) Lymph # (Auto) [place] # (Auto) Seg Neutrophils % Seg Neuts % (Manual) Lymphocytes % (Manual) Seg Neutrophils # Seg Neutrophils # Man Lymphocytes # (Manual) PT INR ABG pH 7.324 L ABG pO2 55.6 L ABG HCO3 45.3 H ABG O2 Saturation 87.1 L ABG Base Excess 16.6 H ABG Hemoglobin 8.6 L Oxyhemoglobin 85.7 L Sodium Potassium Chloride 97.6 L Carbon Dioxide 36 H BUN Creatinine < 0.2 L Glucose 109 H POC Glucose 120 H Calcium Phosphorus Magnesium Total Creatine Kinase CK-MB (CK-2) Rel Index Troponin T C-Reactive Protein Total Protein Albumin LDL Cholesterol Direct Urine WBC (Auto) Crossmatch 04/17/22 04/17/22 04/17/22 04:36 04:36 04:57 WBC 14.4 H RBC 3.08 L Hgb 9.4 L Hct 29.0 L MCV MCH MCHC RDW Plt Count Lymph % (Auto) [place] % (Auto) Lymph # (Auto) [place] # (Auto) Seg Neutrophils % Seg Neuts % (Manual) Lymphocytes % (Manual) Seg Neutrophils # Seg Neutrophils # Man Lymphocytes # (Manual) PT INR ABG pH ABG pO2 ABG HCO3 ABG O2 Saturation ABG Base Excess ABG Hemoglobin Oxyhemoglobin Sodium Potassium Chloride 95.9 L Carbon Dioxide 39 H BUN Creatinine < 0.2 L Glucose 140 H POC Glucose 137 H Calcium 8.3 L Phosphorus Magnesium Total Creatine Kinase CK-MB (CK-2) Rel Index Troponin T C-Reactive Protein Total Protein Albumin LDL Cholesterol Direct Urine WBC (Auto) Crossmatch 04/17/22 04/17/22 04/18/22 09:15 18:01 04:20 WBC 11.2 H RBC 3.00 L Hgb 9.3 L Hct 28.6 L MCV 95 H MCH MCHC RDW Plt Count Lymph % (Auto) [place] % (Auto) Lymph # (Auto) [place] # (Auto) Seg Neutrophils % Seg Neuts % (Manual) Lymphocytes % (Manual) Seg Neutrophils # Seg Neutrophils # Man Lymphocytes # (Manual) PT INR ABG pH 7.345 L ABG pO2 ABG HCO3 48.2 H ABG O2 Saturation ABG Base Excess 19.2 H ABG Hemoglobin 9.7 L Oxyhemoglobin Sodium Potassium Chloride Carbon Dioxide BUN Creatinine Glucose POC Glucose 129 H Calcium Phosphorus Magnesium Total Creatine Kinase CK-MB (CK-2) Rel Index Troponin T C-Reactive Protein Total Protein Albumin LDL Cholesterol Direct Urine WBC (Auto) Crossmatch 04/18/22 04/18/22 04/18/22 04:20 17:35 23:50 WBC RBC Hgb Hct MCV MCH MCHC RDW Plt Count Lymph % (Auto) [place] % (Auto) Lymph # (Auto) [place] # (Auto) Seg Neutrophils % Seg Neuts % (Manual) Lymphocytes % (Manual) Seg Neutrophils # Seg Neutrophils # Man Lymphocytes # (Manual) PT INR ABG pH ABG pO2 ABG HCO3 ABG O2 Saturation ABG Base Excess ABG Hemoglobin Oxyhemoglobin Sodium Potassium Chloride 96.8 L Carbon Dioxide 43 H* BUN 22 H Creatinine < 0.2 L Glucose 137 H POC Glucose 128 H 123 H Calcium 8.2 L Phosphorus Magnesium Total Creatine Kinase CK-MB (CK-2) Rel Index Troponin T C-Reactive Protein Total Protein Albumin LDL Cholesterol Direct Urine WBC (Auto) Crossmatch 04/19/22 04/19/22 04/19/22 04:08 04:08 08:50 WBC 16.8 H RBC 3.18 L Hgb 9.8 L Hct 30.1 L MCV 95 H MCH MCHC RDW Plt Count Lymph % (Auto) [place] % (Auto) Lymph # (Auto) [place] # (Auto) Seg Neutrophils % Seg Neuts % (Manual) Lymphocytes % (Manual) Seg Neutrophils # Seg Neutrophils # Man Lymphocytes # (Manual) PT INR ABG pH ABG pO2 56.0 L ABG HCO3 47.1 H ABG O2 Saturation 93.3 L ABG Base Excess 20.1 H ABG Hemoglobin 8.0 L Oxyhemoglobin 91.8 L Sodium Potassium Chloride 96.2 L Carbon Dioxide 40 H BUN 24 H Creatinine < 0.2 L Glucose 125 H POC Glucose Calcium 8.3 L Phosphorus Magnesium Total Creatine Kinase CK-MB (CK-2) Rel Index Troponin T C-Reactive Protein Total Protein Albumin LDL Cholesterol Direct Urine WBC (Auto) Crossmatch 04/19/22 04/20/22 04/20/22 12:02 00:40 04:49 WBC 14.7 H RBC 3.36 L Hgb 10.3 L Hct 32.0 L MCV 95 H MCH MCHC RDW Plt Count Lymph % (Auto) [place] % (Auto) Lymph # (Auto) [place] # (Auto) Seg Neutrophils % Seg Neuts % (Manual) Lymphocytes % (Manual) Seg Neutrophils # Seg Neutrophils # Man Lymphocytes # (Manual) PT INR ABG pH ABG pO2 ABG HCO3 ABG O2 Saturation ABG Base Excess ABG Hemoglobin Oxyhemoglobin Sodium Potassium Chloride Carbon Dioxide BUN Creatinine Glucose POC Glucose 124 H 140 H Calcium Phosphorus Magnesium Total Creatine Kinase CK-MB (CK-2) Rel Index Troponin T C-Reactive Protein Total Protein Albumin LDL Cholesterol Direct Urine WBC (Auto) Crossmatch 04/20/22 04/20/22 04/21/22 05:36 11:40 04:05 WBC RBC Hgb Hct MCV MCH MCHC RDW Plt Count Lymph % (Auto) [place] % (Auto) Lymph # (Auto) [place] # (Auto) Seg Neutrophils % Seg Neuts % (Manual) Lymphocytes % (Manual) Seg Neutrophils # Seg Neutrophils # Man Lymphocytes # (Manual) PT INR ABG pH ABG pO2 ABG HCO3 ABG O2 Saturation ABG Base Excess ABG Hemoglobin Oxyhemoglobin Sodium Potassium Chloride 93.4 L Carbon Dioxide 40 H BUN 25 H Creatinine < 0.2 L Glucose 122 H POC Glucose 125 H 128 H Calcium Phosphorus Magnesium Total Creatine Kinase CK-MB (CK-2) Rel Index Troponin T C-Reactive Protein Total Protein Albumin LDL Cholesterol Direct Urine WBC (Auto) Crossmatch 04/21/22 04/22/22 04/22/22 10:31 05:03 05:03 WBC 12.6 H 12.7 H RBC 2.83 L 2.96 L Hgb 8.6 L 9.0 L Hct 26.9 L 28.0 L MCV 95 H 95 H MCH MCHC RDW Plt Count Lymph % (Auto) [place] % (Auto) Lymph # (Auto) [place] # (Auto) Seg Neutrophils % Seg Neuts % (Manual) Lymphocytes % (Manual) Seg Neutrophils # Seg Neutrophils # Man Lymphocytes # (Manual) PT INR ABG pH ABG pO2 ABG HCO3 ABG O2 Saturation ABG Base Excess ABG Hemoglobin Oxyhemoglobin Sodium Potassium Chloride 93.9 L Carbon Dioxide 43 H* BUN 23 H Creatinine < 0.2 L Glucose 137 H POC Glucose Calcium Phosphorus Magnesium Total Creatine Kinase CK-MB (CK-2) Rel Index Troponin T C-Reactive Protein Total Protein Albumin LDL Cholesterol Direct Urine WBC (Auto) Crossmatch 04/22/22 04/23/22 04/24/22 08:34 09:40 04:29 WBC 14.4 H RBC 2.74 L Hgb 8.4 L Hct 25.7 L MCV MCH MCHC RDW Plt Count Lymph % (Auto) [place] % (Auto) Lymph # (Auto) [place] # (Auto) Seg Neutrophils % Seg Neuts % (Manual) Lymphocytes % (Manual) Seg Neutrophils # Seg Neutrophils # Man Lymphocytes # (Manual) PT INR ABG pH ABG pO2 54.1 L 56.8 L ABG HCO3 48.5 H 49.0 H ABG O2 Saturation 92.1 L 90.9 L ABG Base Excess 20.9 H 20.8 H ABG Hemoglobin 9.0 L 8.4 L Oxyhemoglobin 90.6 L 89.5 L Sodium Potassium Chloride Carbon Dioxide BUN Creatinine Glucose POC Glucose Calcium Phosphorus Magnesium Total Creatine Kinase CK-MB (CK-2) Rel Index Troponin T C-Reactive Protein Total Protein Albumin LDL Cholesterol Direct Urine WBC (Auto) Crossmatch 04/24/22 04/25/22 04/26/22 04:29 09:00 04:22 WBC RBC 2.88 L Hgb 8.9 L Hct 26.8 L MCV MCH MCHC RDW Plt Count Lymph % (Auto) [place] % (Auto) Lymph # (Auto) [place] # (Auto) Seg Neutrophils % Seg Neuts % (Manual) Lymphocytes % (Manual) Seg Neutrophils # Seg Neutrophils # Man Lymphocytes # (Manual) PT INR ABG pH 7.457 H ABG pO2 66.7 L ABG HCO3 42.6 H ABG O2 Saturation ABG Base Excess 15.3 H ABG Hemoglobin 8.8 L Oxyhemoglobin 94.1 L Sodium Potassium Chloride 90.7 L Carbon Dioxide 40 H BUN Creatinine < 0.2 L Glucose 133 H POC Glucose Calcium Phosphorus Magnesium Total Creatine Kinase CK-MB (CK-2) Rel Index Troponin T C-Reactive Protein Total Protein Albumin LDL Cholesterol Direct Urine WBC (Auto) Crossmatch 04/26/22 04/29/22 04/29/22 04:22 04:18 04:18 WBC 13.5 H RBC 2.96 L Hgb 8.9 L Hct 27.7 L MCV MCH MCHC RDW Plt Count Lymph % (Auto) [place] % (Auto) Lymph # (Auto) [place] # (Auto) Seg Neutrophils % Seg Neuts % (Manual) Lymphocytes % (Manual) Seg Neutrophils # Seg Neutrophils # Man Lymphocytes # (Manual) PT INR ABG pH ABG pO2 ABG HCO3 ABG O2 Saturation ABG Base Excess ABG Hemoglobin Oxyhemoglobin Sodium Potassium Chloride 93.2 L 95.2 L Carbon Dioxide 37 H 38 H BUN Creatinine < 0.2 L < 0.2 L Glucose 114 H 116 H POC Glucose Calcium Phosphorus Magnesium Total Creatine Kinase CK-MB (CK-2) Rel Index Troponin T C-Reactive Protein Total Protein Albumin LDL Cholesterol Direct Urine WBC (Auto) Crossmatch 05/02/22 05/03/22 05/03/22 04:29 04:02 04:02 WBC 12.9 H 12.3 H RBC 2.82 L 2.83 L Hgb 8.4 L 8.4 L Hct 26.2 L 26.0 L MCV MCH MCHC RDW Plt Count Lymph % (Auto) [place] % (Auto) Lymph # (Auto) [place] # (Auto) Seg Neutrophils % Seg Neuts % (Manual) Lymphocytes % (Manual) Seg Neutrophils # Seg Neutrophils # Man Lymphocytes # (Manual) PT INR ABG pH ABG pO2 ABG HCO3 ABG O2 Saturation ABG Base Excess ABG Hemoglobin Oxyhemoglobin Sodium 134 L Potassium Chloride 90.5 L Carbon Dioxide 38 H BUN 21 H Creatinine < 0.2 L Glucose 126 H POC Glucose Calcium Phosphorus Magnesium Total Creatine Kinase CK-MB (CK-2) Rel Index Troponin T C-Reactive Protein Total Protein Albumin LDL Cholesterol Direct Urine WBC (Auto) Crossmatch 05/03/22 05/03/22 05/04/22 12:02 17:42 09:36 WBC RBC Hgb Hct MCV MCH MCHC RDW Plt Count Lymph % (Auto) [place] % (Auto) Lymph # (Auto) [place] # (Auto) Seg Neutrophils % Seg Neuts % (Manual) Lymphocytes % (Manual) Seg Neutrophils # Seg Neutrophils # Man Lymphocytes # (Manual) PT INR ABG pH ABG pO2 55.4 L ABG HCO3 43.7 H ABG O2 Saturation 87.4 L ABG Base Excess 16.1 H ABG Hemoglobin 9.1 L Oxyhemoglobin 85.7 L Sodium Potassium Chloride Carbon Dioxide BUN Creatinine Glucose POC Glucose 139 H 131 H Calcium Phosphorus Magnesium Total Creatine Kinase CK-MB (CK-2) Rel Index Troponin T C-Reactive Protein Total Protein Albumin LDL Cholesterol Direct Urine WBC (Auto) Crossmatch 05/04/22 05/04/22 05/05/22 17:08 23:10 04:23 WBC 14.4 H RBC 2.75 L Hgb 8.2 L Hct 25.2 L MCV MCH MCHC RDW Plt Count Lymph % (Auto) [place] % (Auto) Lymph # (Auto) [place] # (Auto) Seg Neutrophils % Seg Neuts % (Manual) Lymphocytes % (Manual) Seg Neutrophils # Seg Neutrophils # Man Lymphocytes # (Manual) PT INR ABG pH ABG pO2 ABG HCO3 ABG O2 Saturation ABG Base Excess ABG Hemoglobin Oxyhemoglobin Sodium Potassium Chloride Carbon Dioxide BUN Creatinine Glucose POC Glucose 124 H 115 H Calcium Phosphorus Magnesium Total Creatine Kinase CK-MB (CK-2) Rel Index Troponin T C-Reactive Protein Total Protein Albumin LDL Cholesterol Direct Urine WBC (Auto) Crossmatch 05/05/22 05/05/22 05/06/22 04:23 21:39 05:13 WBC RBC Hgb Hct MCV MCH MCHC RDW Plt Count Lymph % (Auto) [place] % (Auto) Lymph # (Auto) [place] # (Auto) Seg Neutrophils % Seg Neuts % (Manual) Lymphocytes % (Manual) Seg Neutrophils # Seg Neutrophils # Man Lymphocytes # (Manual) PT INR ABG pH ABG pO2 ABG HCO3 ABG O2 Saturation ABG Base Excess ABG Hemoglobin Oxyhemoglobin Sodium Potassium Chloride 91.3 L Carbon Dioxide 38 H BUN 23 H Creatinine < 0.2 L Glucose 128 H POC Glucose 141 H 136 H Calcium Phosphorus Magnesium Total Creatine Kinase CK-MB (CK-2) Rel Index Troponin T C-Reactive Protein Total Protein Albumin LDL Cholesterol Direct Urine WBC (Auto) Crossmatch 05/07/22 05/07/22 05/08/22 05:29 22:15 05:48 WBC RBC Hgb Hct MCV MCH MCHC RDW Plt Count Lymph % (Auto) [place] % (Auto) Lymph # (Auto) [place] # (Auto) Seg Neutrophils % Seg Neuts % (Manual) Lymphocytes % (Manual) Seg Neutrophils # Seg Neutrophils # Man Lymphocytes # (Manual) PT INR ABG pH ABG pO2 ABG HCO3 ABG O2 Saturation ABG Base Excess ABG Hemoglobin Oxyhemoglobin Sodium Potassium Chloride Carbon Dioxide BUN Creatinine Glucose POC Glucose 125 H 142 H 122 H Calcium Phosphorus Magnesium Total Creatine Kinase CK-MB (CK-2) Rel Index Troponin T C-Reactive Protein Total Protein Albumin LDL Cholesterol Direct Urine WBC (Auto) Crossmatch 05/08/22 05/08/22 05/09/22 14:04 21:48 15:15 WBC RBC 2.61 L Hgb 7.7 L Hct 23.2 L MCV MCH MCHC RDW Plt Count Lymph % (Auto) 8.1 L [place] % (Auto) Lymph # (Auto) 0.9 L [place] # (Auto) Seg Neutrophils % 86.1 H Seg Neuts % (Manual) Lymphocytes % (Manual) Seg Neutrophils # 9.2 H Seg Neutrophils # Man Lymphocytes # (Manual) PT INR ABG pH ABG pO2 ABG HCO3 ABG O2 Saturation ABG Base Excess ABG Hemoglobin Oxyhemoglobin Sodium Potassium Chloride Carbon Dioxide BUN Creatinine Glucose POC Glucose 112 H 107 H Calcium Phosphorus Magnesium Total Creatine Kinase CK-MB (CK-2) Rel Index Troponin T C-Reactive Protein Total Protein Albumin LDL Cholesterol Direct Urine WBC (Auto) Crossmatch 05/09/22 05/09/22 05/09/22 15:15 15:39 21:15 WBC RBC Hgb Hct MCV MCH MCHC RDW Plt Count Lymph % (Auto) [place] % (Auto) Lymph # (Auto) [place] # (Auto) Seg Neutrophils % Seg Neuts % (Manual) Lymphocytes % (Manual) Seg Neutrophils # Seg Neutrophils # Man Lymphocytes # (Manual) PT INR ABG pH ABG pO2 ABG HCO3 ABG O2 Saturation ABG Base Excess ABG Hemoglobin Oxyhemoglobin Sodium Potassium Chloride 92.9 L Carbon Dioxide 40 H BUN Creatinine < 0.2 L Glucose 141 H POC Glucose 118 H 112 H Calcium Phosphorus Magnesium Total Creatine Kinase CK-MB (CK-2) Rel Index Troponin T C-Reactive Protein Total Protein Albumin LDL Cholesterol Direct Urine WBC (Auto) Crossmatch 05/10/22 05/12/22 05/13/22 15:14 00:25 04:02 WBC 13.3 H RBC 3.14 L Hgb 8.7 L Hct 28.0 L MCV MCH MCHC 31 L RDW Plt Count Lymph % (Auto) [place] % (Auto) Lymph # (Auto) [place] # (Auto) Seg Neutrophils % Seg Neuts % (Manual) Lymphocytes % (Manual) Seg Neutrophils # Seg Neutrophils # Man Lymphocytes # (Manual) PT INR ABG pH ABG pO2 ABG HCO3 ABG O2 Saturation ABG Base Excess ABG Hemoglobin Oxyhemoglobin Sodium Potassium Chloride Carbon Dioxide BUN Creatinine Glucose POC Glucose 113 H 158 H Calcium Phosphorus Magnesium Total Creatine Kinase CK-MB (CK-2) Rel Index Troponin T C-Reactive Protein Total Protein Albumin LDL Cholesterol Direct Urine WBC (Auto) Crossmatch 05/13/22 05/13/22 05/13/22 04:02 06:32 13:09 WBC RBC Hgb Hct MCV MCH MCHC RDW Plt Count Lymph % (Auto) [place] % (Auto) Lymph # (Auto) [place] # (Auto) Seg Neutrophils % Seg Neuts % (Manual) Lymphocytes % (Manual) Seg Neutrophils # Seg Neutrophils # Man Lymphocytes # (Manual) PT INR ABG pH ABG pO2 ABG HCO3 ABG O2 Saturation ABG Base Excess ABG Hemoglobin Oxyhemoglobin Sodium 135 L Potassium Chloride 91.1 L Carbon Dioxide 40 H BUN 23 H Creatinine < 0.2 L Glucose 139 H POC Glucose 129 H 117 H Calcium Phosphorus Magnesium Total Creatine Kinase CK-MB (CK-2) Rel Index Troponin T C-Reactive Protein Total Protein Albumin LDL Cholesterol Direct Urine WBC (Auto) Crossmatch 05/13/22 05/14/22 05/14/22 21:28 05:44 07:35 WBC RBC Hgb Hct MCV MCH MCHC RDW Plt Count Lymph % (Auto) [place] % (Auto) Lymph # (Auto) [place] # (Auto) Seg Neutrophils % Seg Neuts % (Manual) Lymphocytes % (Manual) Seg Neutrophils # Seg Neutrophils # Man Lymphocytes # (Manual) PT INR ABG pH ABG pO2 ABG HCO3 ABG O2 Saturation ABG Base Excess ABG Hemoglobin Oxyhemoglobin Sodium Potassium Chloride Carbon Dioxide BUN Creatinine Glucose POC Glucose 109 H 130 H 125 H Calcium Phosphorus Magnesium Total Creatine Kinase CK-MB (CK-2) Rel Index Troponin T C-Reactive Protein Total Protein Albumin LDL Cholesterol Direct Urine WBC (Auto) Crossmatch 05/14/22 05/14/22 05/15/22 16:26 23:44 10:44 WBC 13.9 H RBC 2.71 L Hgb 7.5 L Hct 23.5 L MCV MCH MCHC RDW 15.9 H Plt Count Lymph % (Auto) [place] % (Auto) Lymph # (Auto) [place] # (Auto) Seg Neutrophils % Seg Neuts % (Manual) Lymphocytes % (Manual) Seg Neutrophils # Seg Neutrophils # Man Lymphocytes # (Manual) PT INR ABG pH ABG pO2 ABG HCO3 ABG O2 Saturation ABG Base Excess ABG Hemoglobin Oxyhemoglobin Sodium Potassium Chloride Carbon Dioxide BUN Creatinine Glucose POC Glucose 112 H 189 H Calcium Phosphorus Magnesium Total Creatine Kinase CK-MB (CK-2) Rel Index Troponin T C-Reactive Protein Total Protein Albumin LDL Cholesterol Direct Urine WBC (Auto) Crossmatch 05/15/22 05/16/22 05/16/22 10:44 14:50 21:36 WBC RBC Hgb Hct MCV MCH MCHC RDW Plt Count Lymph % (Auto) [place] % (Auto) Lymph # (Auto) [place] # (Auto) Seg Neutrophils % Seg Neuts % (Manual) Lymphocytes % (Manual) Seg Neutrophils # Seg Neutrophils # Man Lymphocytes # (Manual) PT INR ABG pH ABG pO2 ABG HCO3 ABG O2 Saturation ABG Base Excess ABG Hemoglobin Oxyhemoglobin Sodium 135 L Potassium 3.3 L D Chloride 91.5 L Carbon Dioxide 33 H D BUN 21 H Creatinine < 0.2 L Glucose 118 H POC Glucose 133 H 123 H Calcium 7.9 L Phosphorus Magnesium Total Creatine Kinase CK-MB (CK-2) Rel Index Troponin T C-Reactive Protein Total Protein Albumin LDL Cholesterol Direct Urine WBC (Auto) Crossmatch 05/17/22 05/17/22 05/17/22 03:41 03:41 05:51 WBC 16.2 H RBC 2.53 L Hgb 7.0 L Hct 21.5 L MCV MCH MCHC RDW 16.2 H Plt Count Lymph % (Auto) [place] % (Auto) Lymph # (Auto) [place] # (Auto) Seg Neutrophils % Seg Neuts % (Manual) 96.0 H Lymphocytes % (Manual) 1.0 L Seg Neutrophils # Seg Neutrophils # Man 15.6 H Lymphocytes # (Manual) 0.2 L PT INR ABG pH ABG pO2 ABG HCO3 ABG O2 Saturation ABG Base Excess ABG Hemoglobin Oxyhemoglobin Sodium 132 L Potassium Chloride 95.0 L Carbon Dioxide BUN 22 H Creatinine < 0.2 L Glucose 122 H POC Glucose 123 H Calcium Phosphorus Magnesium Total Creatine Kinase CK-MB (CK-2) Rel Index Troponin T C-Reactive Protein 31.20 H Total Protein Albumin LDL Cholesterol Direct Urine WBC (Auto) Crossmatch 05/17/22 05/17/22 05/18/22 07:53 21:03 05:41 WBC 15.0 H RBC 2.58 L Hgb 7.1 L Hct 22.3 L MCV MCH MCHC RDW 16.1 H Plt Count Lymph % (Auto) [place] % (Auto) Lymph # (Auto) [place] # (Auto) Seg Neutrophils % Seg Neuts % (Manual) Lymphocytes % (Manual) Seg Neutrophils # Seg Neutrophils # Man Lymphocytes # (Manual) PT INR ABG pH ABG pO2 ABG HCO3 ABG O2 Saturation ABG Base Excess ABG Hemoglobin Oxyhemoglobin Sodium Potassium Chloride Carbon Dioxide BUN Creatinine Glucose POC Glucose 106 H 123 H Calcium Phosphorus Magnesium Total Creatine Kinase CK-MB (CK-2) Rel Index Troponin T C-Reactive Protein Total Protein Albumin LDL Cholesterol Direct Urine WBC (Auto) Crossmatch 05/18/22 05/18/22 05/18/22 05:41 13:56 21:08 WBC RBC Hgb Hct MCV MCH MCHC RDW Plt Count Lymph % (Auto) [place] % (Auto) Lymph # (Auto) [place] # (Auto) Seg Neutrophils % Seg Neuts % (Manual) Lymphocytes % (Manual) Seg Neutrophils # Seg Neutrophils # Man Lymphocytes # (Manual) PT INR ABG pH ABG pO2 ABG HCO3 ABG O2 Saturation ABG Base Excess ABG Hemoglobin Oxyhemoglobin Sodium Potassium Chloride 97.9 L Carbon Dioxide BUN 23 H Creatinine < 0.2 L Glucose 128 H POC Glucose 137 H Calcium Phosphorus Magnesium Total Creatine Kinase CK-MB (CK-2) Rel Index Troponin T C-Reactive Protein Total Protein Albumin LDL Cholesterol Direct Urine WBC (Auto) Crossmatch See Detail 05/18/22 05/19/22 05/20/22 23:21 06:10 00:43 WBC 13.5 H RBC 2.53 L Hgb 7.2 L Hct 21.5 L MCV MCH MCHC RDW 16.4 H Plt Count Lymph % (Auto) [place] % (Auto) Lymph # (Auto) [place] # (Auto) Seg Neutrophils % Seg Neuts % (Manual) Lymphocytes % (Manual) Seg Neutrophils # Seg Neutrophils # Man Lymphocytes # (Manual) PT INR ABG pH ABG pO2 70.5 L ABG HCO3 30.3 H ABG O2 Saturation ABG Base Excess 4.9 H ABG Hemoglobin 5.9 L Oxyhemoglobin Sodium Potassium Chloride Carbon Dioxide BUN Creatinine Glucose POC Glucose 151 H Calcium Phosphorus Magnesium Total Creatine Kinase CK-MB (CK-2) Rel Index Troponin T C-Reactive Protein Total Protein Albumin LDL Cholesterol Direct Urine WBC (Auto) Crossmatch 05/20/22 05/20/22 05/20/22 04:40 04:40 07:08 WBC 13.3 H RBC 2.57 L Hgb 7.1 L Hct 22.2 L MCV MCH MCHC RDW 16.3 H Plt Count Lymph % (Auto) [place] % (Auto) Lymph # (Auto) [place] # (Auto) Seg Neutrophils % Seg Neuts % (Manual) Lymphocytes % (Manual) Seg Neutrophils # Seg Neutrophils # Man Lymphocytes # (Manual) PT INR ABG pH ABG pO2 ABG HCO3 ABG O2 Saturation ABG Base Excess ABG Hemoglobin Oxyhemoglobin Sodium 134 L Potassium Chloride Carbon Dioxide BUN Creatinine < 0.2 L Glucose 170 H POC Glucose 174 H Calcium 8.1 L Phosphorus Magnesium Total Creatine Kinase CK-MB (CK-2) Rel Index Troponin T C-Reactive Protein Total Protein Albumin LDL Cholesterol Direct Urine WBC (Auto) Crossmatch 05/20/22 05/21/22 05/21/22 15:08 05:13 22:07 WBC RBC Hgb Hct MCV MCH MCHC RDW Plt Count Lymph % (Auto) [place] % (Auto) Lymph # (Auto) [place] # (Auto) Seg Neutrophils % Seg Neuts % (Manual) Lymphocytes % (Manual) Seg Neutrophils # Seg Neutrophils # Man Lymphocytes # (Manual) PT INR ABG pH ABG pO2 ABG HCO3 ABG O2 Saturation ABG Base Excess ABG Hemoglobin Oxyhemoglobin Sodium Potassium Chloride Carbon Dioxide BUN Creatinine Glucose POC Glucose 114 H 149 H 113 H Calcium Phosphorus Magnesium Total Creatine Kinase CK-MB (CK-2) Rel Index Troponin T C-Reactive Protein Total Protein Albumin LDL Cholesterol Direct Urine WBC (Auto) Crossmatch 05/22/22 05/22/22 05/22/22 05:49 05:49 07:43 WBC RBC 3.05 L Hgb 8.6 L Hct 26.2 L MCV MCH MCHC RDW 16.8 H Plt Count Lymph % (Auto) [place] % (Auto) Lymph # (Auto) [place] # (Auto) Seg Neutrophils % Seg Neuts % (Manual) Lymphocytes % (Manual) Seg Neutrophils # Seg Neutrophils # Man Lymphocytes # (Manual) PT INR ABG pH ABG pO2 ABG HCO3 ABG O2 Saturation ABG Base Excess ABG Hemoglobin Oxyhemoglobin Sodium 131 L Potassium Chloride 93.3 L Carbon Dioxide 32 H BUN Creatinine < 0.2 L Glucose 148 H POC Glucose 145 H Calcium 8.2 L Phosphorus Magnesium Total Creatine Kinase CK-MB (CK-2) Rel Index Troponin T C-Reactive Protein Total Protein Albumin LDL Cholesterol Direct Urine WBC (Auto) Crossmatch 05/22/22 05/22/22 05/23/22 14:09 22:06 07:57 WBC RBC Hgb Hct MCV MCH MCHC RDW Plt Count Lymph % (Auto) [place] % (Auto) Lymph # (Auto) [place] # (Auto) Seg Neutrophils % Seg Neuts % (Manual) Lymphocytes % (Manual) Seg Neutrophils # Seg Neutrophils # Man Lymphocytes # (Manual) PT INR ABG pH ABG pO2 ABG HCO3 ABG O2 Saturation ABG Base Excess ABG Hemoglobin Oxyhemoglobin Sodium Potassium Chloride Carbon Dioxide BUN Creatinine Glucose POC Glucose 136 H 129 H 137 H Calcium Phosphorus Magnesium Total Creatine Kinase CK-MB (CK-2) Rel Index Troponin T C-Reactive Protein Total Protein Albumin LDL Cholesterol Direct Urine WBC (Auto) Crossmatch 05/23/22 05/23/22 05/24/22 14:13 21:29 04:22 WBC RBC 2.89 L Hgb 7.9 L Hct 24.9 L MCV MCH MCHC RDW 17.0 H Plt Count Lymph % (Auto) [place] % (Auto) Lymph # (Auto) [place] # (Auto) Seg Neutrophils % Seg Neuts % (Manual) Lymphocytes % (Manual) Seg Neutrophils # Seg Neutrophils # Man Lymphocytes # (Manual) PT INR ABG pH ABG pO2 ABG HCO3 ABG O2 Saturation ABG Base Excess ABG Hemoglobin Oxyhemoglobin Sodium Potassium Chloride Carbon Dioxide BUN Creatinine Glucose POC Glucose 135 H 132 H Calcium Phosphorus Magnesium Total Creatine Kinase CK-MB (CK-2) Rel Index Troponin T C-Reactive Protein Total Protein Albumin LDL Cholesterol Direct Urine WBC (Auto) Crossmatch 05/24/22 05/24/22 05/24/22 04:22 06:41 12:12 WBC RBC Hgb Hct MCV MCH MCHC RDW Plt Count Lymph % (Auto) [place] % (Auto) Lymph # (Auto) [place] # (Auto) Seg Neutrophils % Seg Neuts % (Manual) Lymphocytes % (Manual) Seg Neutrophils # Seg Neutrophils # Man Lymphocytes # (Manual) PT INR ABG pH ABG pO2 ABG HCO3 ABG O2 Saturation ABG Base Excess ABG Hemoglobin Oxyhemoglobin Sodium 133 L Potassium 5.1 H Chloride 93.7 L Carbon Dioxide 33 H BUN Creatinine < 0.2 L Glucose 144 H POC Glucose 140 H 130 H Calcium 8.3 L Phosphorus Magnesium Total Creatine Kinase CK-MB (CK-2) Rel Index Troponin T C-Reactive Protein Total Protein Albumin LDL Cholesterol Direct Urine WBC (Auto) Crossmatch 05/24/22 05/25/22 05/25/22 21:24 00:44 05:41 WBC RBC Hgb Hct MCV MCH MCHC RDW Plt Count Lymph % (Auto) [place] % (Auto) Lymph # (Auto) [place] # (Auto) Seg Neutrophils % Seg Neuts % (Manual) Lymphocytes % (Manual) Seg Neutrophils # Seg Neutrophils # Man Lymphocytes # (Manual) PT INR ABG pH ABG pO2 ABG HCO3 ABG O2 Saturation ABG Base Excess ABG Hemoglobin Oxyhemoglobin Sodium Potassium Chloride 94.8 L Carbon Dioxide 35 H BUN Creatinine < 0.2 L Glucose 146 H POC Glucose 141 H 142 H Calcium Phosphorus Magnesium Total Creatine Kinase CK-MB (CK-2) Rel Index Troponin T C-Reactive Protein Total Protein Albumin LDL Cholesterol Direct Urine WBC (Auto) Crossmatch 05/25/22 05/25/22 13:51 14:46 WBC RBC 2.87 L Hgb 7.8 L Hct 24.4 L MCV MCH 27 L MCHC RDW 17.1 H Plt Count Lymph % (Auto) 11.9 L [place] % (Auto) Lymph # (Auto) [place] # (Auto) Seg Neutrophils % 81.2 H Seg Neuts % (Manual) Lymphocytes % (Manual) Seg Neutrophils # 8.4 H Seg Neutrophils # Man Lymphocytes # (Manual) PT INR ABG pH ABG pO2 ABG HCO3 ABG O2 Saturation ABG Base Excess ABG Hemoglobin Oxyhemoglobin Sodium Potassium Chloride Carbon Dioxide BUN Creatinine Glucose POC Glucose 139 H Calcium Phosphorus Magnesium Total Creatine Kinase CK-MB (CK-2) Rel Index Troponin T C-Reactive Protein Total Protein Albumin LDL Cholesterol Direct Urine WBC (Auto) Crossmatch Chest x-ray: image reviewed (Alveolar infiltrates possible edema) Allied health notes reviewed: RT
[2022-05-25] MEDS: POLYETHYLENE GLYCOL 3350 17 GM POWDER FEEDTUBE SCH (17:43)
[2022-05-25] MEDS: DOCUSATE SODIUM 100 MG/10 ML ORAL LIQD FEEDTUBE SCH ×2 (17:43→21:02)
[2022-05-25] MEDS ORDERED: EPINEPHrine RACEMIC 2.25% 0.5ML NEBU IH ONE (20:09)
[2022-05-25] MEDS: SENNOSIDES ORAL LIQD 8.8 MG/5 ML ORAL LIQD FEEDTUBE SCH (21:02)
[2022-05-26] MEDS: METOPROLOL TARTRATE 25 MG TAB FEEDTUBE SCH ×4 (00:07→18:32)
[2022-05-26 01:24] LABS: Blood Urea Nitrogen 16 mg/dL (9-20); Calcium 8.2 mg/dL (8.4-10.2); Hemolysis Index 9
[2022-05-26 01:25] LABS: BUN/Creatinine Ratio 80
[2022-05-26 01:36] LABS: Hematocrit 23.9 % (35.5-45.6); Hemoglobin 7.6 gm/dl (11.8-15.2); Mean Corpuscular HGB Conc 32 % (32-34); Mean Corpuscular Volume 85 fl (84-94); Platelet Count 360 K/mm3 (140-440); Red Blood Count 2.82 M/mm3 (3.65-5.03); Red Cell Distribution Width 17.4 % (13.2-15.2)
[2022-05-26] MEDS: INSULIN LISPRO 100 UNIT/ML SUB-Q SCH ×3 (05:05→22:00)
[2022-05-26] MEDS: HEPARIN 5,000 UNIT/1 ML VIAL SUB-Q SCH ×3 (05:09→22:00)
[2022-05-26] MEDS: ALBUTEROL 2.5 MG/3 ML NEBU IH SCH ×2 (08:10→20:25)
[2022-05-26] MEDS: ACETYLCYSTEINE 20% 200 MG/1 ML *FOR INHALATION USE INHALATION SCH ×2 (08:10→20:25)
[2022-05-26] MEDS: FAMOTIDINE 20 MG TAB FEEDTUBE SCH ×2 (09:17→22:02)
[2022-05-26] MEDS: BACLOFEN 10 MG TAB PO SCH ×3 (09:18→20:38)
[2022-05-26] MEDS: QUEtiapine 100 MG TAB FEEDTUBE SCH ×2 (09:18→22:01)
[2022-05-26] MEDS: SODIUM CHLORIDE 0.9% IV SCH ×2 (09:55→20:33)
[2022-05-26] MEDS: CEFTAZIDIME IV SCH ×2 (09:55→20:33)
[2022-05-26] MEDS: AVIBACTAM IV SCH ×2 (09:55→20:33)
--- NOTE | 2022-05-26 11:45 | Progress Note ---
<ALEK SMITH - Last Filed: 05/26/22 17:49> Assessment and Plan Assessment and plan: This is a 57-year-old male with known history of ALS, recently hospitalized at [facility] admitted for acute hypoxemic respiratory failure 2/2 pneumonia Hospital Course to Date: 04/03: Intubated and Sedated on versed gtt, RASS-5. CT head/brain noted with no acute intracranial abnormality. Plan to initiated precededx gtt and wean off versed for a RASS goal of 0 to -2. CT chect also reviewed, findings are most consistent with acute bronchopneumonia. Continue empiric IV Abx, vent adjustment per CCM. ID consulted. Continue to F/U on cultures. Titrate pressor for MAP above 65. Medical records requested from [facility]. 04/04: Remains stable on the vent, easily arousable on precedex gtt, not following commands. Plan for SAT/SBT today. PRN analgesia for CPOT greater than 3. Fevers improved, cultures and procal pending. Continue current IV abx, ID also consulted. Remains on low dose pressors, titrate pressors for a MAP above 65. 04/05: Long discussion with family with use of translation phone with CCM regarding goals of care. Family to have meeting amongst themselves and informed care team of decisions. Fentanyl drip added for respiratory distress. Remains on Precedex drip. Antibiotics per ID. Given 2L NS bolus with levophed gtt 04/06: Family discussion with Dr. Grayson for goals of care. CXR shows possible mucus plug, continue CPT as FiO2 is being able to be weaned. Potassium repleted. Weaning fentnyl gtt. 04/07: Ultrasound guided thoracentesis today scheduled, inadequate amount of pleural effusion on so not completed. Patient was started on Levophed overnight which was weaned off this morning however had to be started twice a day. Remains on fentanyl and Precedex. Cardiology discontinued BB and ACEi in setting of hypotension. 04/08: COVID-19 PCR negative. Routine EEG ordered by cardiology which showed ST changes, cardiology aware. They will continue conservative treatment. Repeat troponins 0.030 which are less than admit of 0.048. Dr. Grayson had a long discu ssion with with the use of management instructor today at bedside and has not made a decision regarding goals of care. Possible consult to surgery for trach/PEG early next week. Continues to require Precedex and fentanyl drip for sedation. Carvedilol/lisinopril discontinued as patient is continuously on Levophed. 04/09: No acute events reported overnight, remains on fentanyl, Precedex and Levophed drips. Dr. Grayson and Dr. Pineda updated family at bedside extensively today. Consulted surgery for trach/PEG. COVID-19 PCR negative. 04/10: Patient noted to have desaturation episodes, FiO2 increased slightly to 35%. Will add Mucomyst. Remains on fentanyl and Precedex. Off of Levophed. Surgery consulted for trach/PEG. 04/11: FiO2 increased over night likely related to hypoxia, continues on fent gtt, weaning precedex gtt as he is also on Seroquel. Will d/w CCM re scheduled or prn oxycodone 04/12: Periods of hypoxia and tachycardia this am. Symptoms improved post deep suction and tracheal lavage, Repeat CXR noted with no significant change. Continue CPT and mucomyst. Plan for possible trach/PEG tomorrow by general surgery. 04/13: Remains stable on the vent. Patient is wake and tracking but does not follow simple commands. No report of hypoxia from overnight, continue CPT and mucomyst. Plan for track and PEG today by General Surgery. Plan for LTAC placement post procedure, case management to arrange. 04/14: VIRGILIO overnight, Trach and PEG postponed for today by general surgery. Plan for LTAC placement post procedure, case management to arrange. 04/15: S/p Trach and PEG. Up to 80% FiO2 this am, this am CXR noted suggesting possible mucus plug. D/W [facility] plan for bronch today. Continue CPT and mucomyst. Plan of care thoroughly discussed with patient's and son (who translated for ) at the bedside. Per , auto electrician had already discussed the risks and benefits of the procedure yesterday. She verbalized understanding and agreed with procedure and current care plan, consent signed. Okay to use PEG-tube for meds this am, resume TF once okay by general Surgery. Case management to arrange LTAC placement. 04/16: s/p Bronchocopy by [facility]. FiO2 down to 60%, angela 10 this am. This am CXR with moderate improvement. Continue CPT and mucomyst, wean Fio2 as tolerated for SPO2 above 92%. Patient is tolerating TF, advance to goal as ordered. Possible LTAC placement, case management to arrange. 04/17: VIRGILIO overnight. remains stable on the vent, recent CXR and this am ABG n oted. Continue CPT and mucomyst, wean Fio2 as tolerated. 04/18: Remains stable on the vent, Fio2 down to 55% and peep of 8 this am. Continue to wean as tolerated, CPT, and mucomyst. Dsiposition- LTAC placement, case management to arrange. 04/19: No acute events overnight. Continue current management. 04/20: No acute events overnight, continue current management 04/21: Patient had chest ultrasound which showed trace pleural effusions, chest x-ray improved after the addition of Mucomyst yesterday. FiO2 55-65%. No acute events overnight. more interactive today. 04/22: Seroquel changed to BID, FiO2 was increased to 60%. RT increased FIO2 to 100 d/t desaturation into the 80s but was able to wean down. CCM increased PEEP and decreased FiO2. 04/23: CCM increase PEEP, no acute events reported overnight. 04/24: Spoke to RT about decreasing FiO2 as tolerated. No acute events reported overnight. Continue supportive management. 04/25: Weaning as tolerated. no acute events overnight. RT to attempt CPAP again today 04/26: VIRGILIO overnight. Patient failed PSV trial again this morning. Continue s upportive management and daily PST trial. 04/27: Patient failed PSV trial again this am due to episodes of apnea. Continue daily PSV trial as tolerated. Case management to arrange LTAC placement 04/28: Remains stable. Continue daily PSV trial as tolerated. Awaiting approval for LTAC 04/29: VIRGILIO overnight. Continue daily PSV trial. Awaiting approval for LTAC, case management to arrange. 04/30: Patient continue to fail PSV trial. Per case management patient was denied for LTAC, now possible SNF placement. Case managemen to arrange. Continue supportive measures and daily PSV trial as tolerated. 05/01: VIRGILIO overnight. Continue supportive measures and daily PSV trial as tolerated. Possible SNF placement. 05/02: Continue supportive measures and daily PSV trial as tolerated. Possible SNF placement, case management to arrange 05/03: no acute events overnight, CM arranging home vent setup. Family declined SNF. 05/04: RN/RT reports thin secretions, increase in FiO2 for decreased oxygen on ABG. No acute events overnight. 05/05: Family scheduled for teaching session today at 2pm. Increase in FiO2 overnight to 45%. Awaiting vent setup for home care for ventilation secondary to tracheostomy. 05/06: No acute events reported overnight, T-max 100.9. FiO2 45%. Awaiting discharge home with vent when teaching is completed 05/07: No acute events reported overnight, Awaiting discharge home with vent when teaching is completed 05/08: No acute events reported overnight, Awaiting discharge home with vent when teaching is completed 05/09: no acute events reported overnight. Ordered routine labs today. Family continuing with vent training. Anticipate discharge home this week possibly on Tuesday. 05/10: VIRGILIO overnight. Continue current supportive measures and family training at the bedside. Plan for discharge home tomorrow. 05/11: Discharge home today. extrusion press supervisor at 12pm 05/12: Discharge cancelled yesterday. Patient desated on home vent at max setting. Home vent is not sufficient to support patient's ventilation need. D/w [facility], Dr. Valdivia, who recommend SNF placement at this time. Patient's family notified at the bedside. All questions and concerns were address at this time. Further discussion on alternative placement to be determine and discussed with patient's family and case management today. The respiratory therapist from [facility] is schedule to come at 1400 today for further assessment. 05/13: Tolerating home vent this amd. Recent CXR reviewed with no significant change. Patient's home vent settings were adjusted by [facility]. [facility] respiratory therapist to come again today to make further adjusted to home vent. Plan is to optimize patient's on home vent for possible discharge home. 05/14: Patient continue to have periods of desaturations on home vent. Home vent setting adjusted and it was determined that patient require 12L to 15L of oxygen to maintain SPO2 goal above 88%. Will continue to optimized patient on home vent for possible discharge home on Tuesday. 05/15: Febrile overnight with hypotension and increased O2 requirement. s/p 500cc IVF bolus, and pancultured overnight. This am CXR reviewed, IV Abx- Cefepine initiated for now, pending cultures. 05/16: With persistent fever this morning. Hypotensive again overnight, additional s/p 500cc IVF bolus given. Continue current IV abx, cultures pending. Down to 8L flow on home today. Repeat CXR in the am. Guarded discharge for tomorrow. D/w CCM, patient need to be afebrile for at least 24hrs prior to discharge. Plan discussed with patient's and daughter at the bedside. 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; WOCN consult placed 05-18 ID and gen surg consult 05/19: s/p sacral wound debridement with Dr. Jerome with wound vac and mesh placement. Per Dr. Jerome patient will need to either stay in the hospital 1 week to be taken back to the OR for removal of mesh on wound or may be discharged but will have to visit the wound clinic in 2 weeks. We will alert case fitter. No acute events overnight. 05/20: Remains with leukocytosis, wound VAC in place. Discharge requested to be postponed by surgery. Remains on meropenem and vancomycin. No acute events reported overnight. 05/21: IV abx deescalated by ID, no acute events overnight. Continue current management. 05/22: No acute events reported overnight. Hyponatremia noted. Decreased free water flush. We will repeat labs in 48 hours. 05/23: no acute events overnight. 05/24/22 -patient seen today at bedside. Patients eyes open with no purposeful response. i reviewed lab, mar, and v/s. potassium 5.1-kayexalate given times 1- will repeat BMP in am. Pt remain on trach to vent.V/s stable. 05/25/22- Patient has significant history of ALS and as a result has remained on mechanical ventilation. Due to underlying neurological condition patient will require HFCWO vest. The patient has had trials of CoughAssist therapy with flutter wave CPT multiple suctioning while in the hospital but all of these have unfortunately failed to resolve his current condition and will benefit from the HFCWO vest. - patient asleep at the time of assessment. On trach to vent. The plan is to discharge patient on home vent. Reviewed specialist recommendations. We will follow-up with plan of care. Elevated potassium has resolved. Hyponatremia resolved. 05/26: VIRGILIO overnight. Remains afebrile, stable on home vent, VSS. Continue current IV abx, now on Avycaz per ID. Assessment and Plan #Acute Hypoxemic Respiratory Failure 2/ #Acute Bronchopneumonia - Intubated in the ED on 04/02 for hypoxemia and airway protection - 04/14 s/p Trach and PEG - 04/15 CXR reviewed complete opacity of the righ side suggesting possible mucus plug. See report for detail - 04/15 s/p Bronchoscopy by [facility] - Tolerating home vent this am, SPO2 at 95% - [facility] consulted, appreciate recommendations - Multiple failed vent wean - Continue CPT and mucomyst per [facility] - VAP bundle addressed - Aspiration precaution HOB above 30 - PRN ABG and CXR per [facility] - Continue SPO2 monitoring for SPO2 goal above 92% #Sepsis #Acute Bronchopneumonia/HCAP #New Stage 4 Sacral Pressure Ulcer - CXR shows moderate to large layering effusion on the right, see report for full detail - CT chest also reviewed, findings are most consistent with acute bronchopneumonia. See report for full detail - Tracheal aspirate with Pseudomonas aeruginosa, Enterobacter aerogenes - 04/02 blood culture with bacillus species, 04/05 blood culture NGTD, repeat Bc ultures with NGTD - Completed initiatial IV abx course- S/p merem, Levaquin, Cefepine, and Vanco - persistent fevers hypotension, ID reconsulted - Stage 4 caral pressure ulcer noted, General Surgery consulted - 05/19 s/p wound debridement, mesh placement to wound bed and wound vac placement - wound culture with Ecoli, CRE - Now on Avycaz per ID - F/U on cultures - Daily CBC monitor - Wound care also consulted #Suspect ischemic coronary artery disease #h/o cardiomyopathy - Low BP probably due to hypovolemia vs sedation vs infectious process - s/p Levophed gtt - Elevated troponin possibly a type II troponin leak - Cardiology consulted, appreciated recommendations - Echocardiogram shows ejection fraction of 40 to 45%, mild global hypokinesis of left ventricle - Continue BB - Continue blood pressure monitor per protocol - Maintain MAP above 65 - On heparin SubQ #H/o Amyotrophic Lateral Sclerosis #Acute Metabolic Encephalopathy-resolved #Nonverbal at Baseline - Presented with AMS, per family patient is nonverbal at baseline but responsive - CT head/Brain with no acute intracranial process - Off sedation. Awake and calm - Continue Seroquel per [facility] - Avoid benzodiazepine to reduce the possibility of delirium - PRN analgesia for CPOT greater than 3 - Maintenance of sleep-wake cycle #Thrombocytopenia-resolved - Continue to trend plt - On heparin subQ - Monitor for s/s of any active bleeding #Hypernatremia-resolved - Monitor and replace electrolytes as needed - Continue to trend BMP #Protein Caloric Malnutrition - 04/15 s/p EPG-Tube placement - Continue enteral nutrition - Nutrition consulted #GI/DVT Prophylaxis - PPI- Pepcid - Heparin SubQ - SCDs to bilateral lower extremities while in bed #Advance Care Planning - Disease education data, care plan, diagnoses, and prognosis were discussed patient's , Carly Lopez, and patient daughter, Kaylee Warren, who translated for #[phone]. They reported that patient was following at [place] for his ALS and during recent hospitalization at [facility] they were told nothing else can be offered to patient at this time and patient was discharge home with home hospice and PO morphine. First hospice visit was on , however, patient became unresponsive yesterday and they brought in to the hospital. - Goal of care and code status were also addressed at that time. Family wants to wait for a couple days to see how patient respond to current treatment before making a decision. All questions and concerns were addressed at this time. Patient family acknowledged understanding and agreement with care plan. - Patient remains a FULL CODE status -04/05: Discussion at bedside with interpreting service with Dr. Valdivia and family state they would discuss next steps amongst themselves and let healthcare team know of decisions -04/06: extensive discussion with family ( and son) with Dr. Grayson regarding goals of care -04/08: Extensive discussion with with the use of management instructor line regarding goals of care; no decision made. Possible consult to surgery for trach/PEG early next week. -04/09: Discussion with and her sister with Dr. Grayson and then with Dr. Pineda-> Consulted surgery for trach/peg -04/30 Insurance Denied LTAC, plan for possible SNF placemenet now. Case management to arrange -05/12: Discharge cancelled yesterday. Patient desated on home vent at [place] setting. Home vent is not sufficient to support patient's ventilation need. -05/13: Adjustement made to home vent. Plan to optimize patient for possible discharge home. The high probability of a clinically significant, sudden or life threatening deterioration of the [multiple] system(s) required my full and direct attention, intervention and personal management. The aggregate critical care time was [60] minutes. This time is in addition to time spent performing reported procedures but includes the following: [x] Data Review and interpretation [x] Patient assessment and monitoring of vital signs [x] Documentation [x] Medication orders and management Disposition Plan: ICU Total Time Spent with Patient (Minutes): 60 History Interval history: Patient seen and examined at the bedside. Remains stable on home vent, following simple commands. Afebrile overnight, VSS. Sacral wound vac noted with no s/s of any complications. Hospitalist Physical - Physical exam Narrative exam: General appearance: Present: no acute distress, cachectic, other (Trach and on the vent. Awake and tracking, following simple commands) - EENT Eyes: Present: PERRL - Neck Neck: Present: normal ROM - Respiratory Respiratory effort: normal Respiratory: bilateral: rhonchi - Cardiovascular Rhythm: regular Heart Sounds: Present: S1 & S2 - Extremities Extremities: no ischemia, pulses intact, pulses symmetrical Peripheral Pulses: within normal limits - Abdominal General gastrointestinal: soft, non-distended, normal bowel sounds - Integumentary Integumentary: Present: warm, dry - Psychiatric Psychiatric: other (Trach and on the vent. Awake and tracking, following simple commands) - Neurologic Neurologic: other (Trach and on the vent. Awake and tracking, following simple commands) - Allied Health Allied health notes reviewed: nursing, case management - Constitutional Vitals: Temp Pulse Resp BP Pulse Ox 97.6 F 94 H 16 108/72 96 05/26/22 08:00 05/26/22 11:00 05/26/22 11:00 05/26/22 11:00 05/26/22 10:00 HEART Score - HEART Score Troponin: Troponin T 0.031 ng/mL (0.00-0.029) H 04/08/22 17:47 Results - Labs CBC & Chem 7: 05/26/22 00:31 05/26/22 00:31 Labs: Laboratory Last Values WBC 9.2 K/mm3 (4.5-11.0) 05/26/22 00:31 RBC 2.82 M/mm3 (3.65-5.03) L 05/26/22 00:31 Hgb 7.6 gm/dl (11.8-15.2) L 05/26/22 00:31 Hct 23.9 % (35.5-45.6) L 05/26/22 00:31 MCV 85 fl (84-94) 05/26/22 00:31 MCH 27 pg (28-32) L 05/26/22 00:31 MCHC 32 % (32-34) 05/26/22 00:31 RDW 17.4 % (13.2-15.2) H 05/26/22 00:31 Plt Count 360 K/mm3 (140-440) 05/26/22 00:31 Lymph % (Auto) 11.9 % (13.4-35.0) L 05/25/22 13:51 [place] % (Auto) 5.6 % (0.0-7.3) 05/25/22 13:51 Eos % (Auto) 0.9 % (0.0-4.3) 05/25/22 13:51 Baso % (Auto) 0.4 % (0.0-1.8) 05/25/22 13:51 Lymph # (Auto) 1.2 K/mm3 (1.2-5.4) 05/25/22 13:51 [place] # (Auto) 0.6 K/mm3 (0.0-0.8) 05/25/22 13:51 Eos # (Auto) 0.1 K/mm3 (0.0-0.4) 05/25/22 13:51 Baso # (Auto) 0.0 K/mm3 (0.0-0.1) 05/25/22 13:51 Add Manual Diff Complete 05/17/22 03:41 Total Counted 100 05/17/22 03:41 Seg Neutrophils % 81.2 % (40.0-70.0) H 05/25/22 13:51 Seg Neuts % (Manual) 96.0 % (40.0-70.0) H 05/17/22 03:41 Band Neutrophils % 0 % 05/17/22 03:41 Lymphocytes % (Manual) 1.0 % (13.4-35.0) L 05/17/22 03:41 Reactive Lymphs % (Man) 0 % 05/17/22 03:41 Monocytes % (Manual) 3.0 % (0.0-7.3) 05/17/22 03:41 Eosinophils % (Manual) 0 % (0.0-4.3) 05/17/22 03:41 Basophils % (Manual) 0 % (0.0-1.8) 05/17/22 03:41 Metamyelocytes % 0 % 05/17/22 03:41 Myelocytes % 0 % 05/17/22 03:41 Promyelocytes % 0 % 05/17/22 03:41 Blast Cells % 0 % 05/17/22 03:41 Nucleated RBC % Not Reportable 05/17/22 03:41 Seg Neutrophils # 8.4 K/mm3 (1.8-7.7) H 05/25/22 13:51 Seg Neutrophils # Man 15.6 K/mm3 (1.8-7.7) H 05/17/22 03:41 Band Neutrophils # 0.0 K/mm3 05/17/22 03:41 Lymphocytes # (Manual) 0.2 K/mm3 (1.2-5.4) L 05/17/22 03:41 Abs React Lymphs (Man) 0.0 K/mm3 05/17/22 03:41 Monocytes # (Manual) 0.5 K/mm3 (0.0-0.8) 05/17/22 03:41 Eosinophils # (Manual) 0.0 K/mm3 (0.0-0.4) 05/17/22 03:41 Basophils # (Manual) 0.0 K/mm3 (0.0-0.1) 05/17/22 03:41 Metamyelocytes # 0.0 K/mm3 05/17/22 03:41 Myelocytes # 0.0 K/mm3 05/17/22 03:41 Promyelocytes # 0.0 K/mm3 05/17/22 03:41 Blast Cells # 0.0 K/mm3 05/17/22 03:41 WBC Morphology Not Reportable 05/17/22 03:41 Hypersegmented Neuts Not Reportable 05/17/22 03:41 Hyposegmented Neuts Not Reportable 05/17/22 03:41 Hypogranular Neuts Not Reportable 05/17/22 03:41 Smudge Cells Not Reportable 05/17/22 03:41 Toxic Granulation Not Reportable 05/17/22 03:41 Toxic Vacuolation Not Reportable 05/17/22 03:41 Dohle Bodies Not Reportable 05/17/22 03:41 Pelger-Huet Anomaly Not Reportable 05/17/22 03:41 Terry Rods Not Reportable 05/17/22 03:41 Platelet Estimate Consistent w auto 05/17/22 03:41 Clumped Platelets Not Reportable 05/17/22 03:41 Plt Clumps, EDTA Not Reportable 05/17/22 03:41 Large Platelets Not Reportable 05/17/22 03:41 Giant Platelets Not Reportable 05/17/22 03:41 Platelet Satelliting Not Reportable 05/17/22 03:41 Plt Morphology Comment Not Reportable 05/17/22 03:41 RBC Morphology Not Reportable 05/17/22 03:41 Dimorphic RBCs Not Reportable 05/17/22 03:41 Polychromasia Not Reportable 05/17/22 03:41 Hypochromasia Not Reportable 05/17/22 03:41 Poikilocytosis Not Reportable 05/17/22 03:41 Anisocytosis 1+ 05/17/22 03:41 Microcytosis Not Reportable 05/17/22 03:41 Macrocytosis Not Reportable 05/17/22 03:41 Spherocytes Not Reportable 05/17/22 03:41 Pappenheimer Bodies Not Reportable 05/17/22 03:41 Sickle Cells Not Reportable 05/17/22 03:41 Target Cells Not Reportable 05/17/22 03:41 Tear Drop Cells Not Reportable 05/17/22 03:41 Ovalocytes Not Reportable 05/17/22 03:41 Helmet Cells Not Reportable 05/17/22 03:41 Patricio-Quinby Bodies Not Reportable 05/17/22 03:41 [place] Rings Not Reportable 05/17/22 03:41 [place] Cells Not Reportable 05/17/22 03:41 Bite Cells Not Reportable 05/17/22 03:41 Crenated Cell Not Reportable 05/17/22 03:41 Elliptocytes Not Reportable 05/17/22 03:41 Acanthocytes (Spur) Not Reportable 05/17/22 03:41 Rouleaux Not Reportable 05/17/22 03:41 Hemoglobin C Crystals Not Reportable 05/17/22 03:41 Schistocytes Not Reportable 05/17/22 03:41 Malaria parasites Not Reportable 05/17/22 03:41 [place] Bodies Not Reportable 05/17/22 03:41 Hem Pathologist Commnt No 05/17/22 03:41 PT 13.6 Sec. (12.2-14.9) 04/13/22 04:30 INR 0.94 (0.87-1.13) 04/13/22 04:30 APTT 35.7 Sec. (24.2-36.6) 04/07/22 03:51 ABG pH 7.385 pH Units (7.350-7.450) 05/19/22 06:10 ABG pCO2 51.9 mm Hg 05/19/22 06:10 ABG pO2 70.5 mm Hg (80.0-90.0) L 05/19/22 06:10 ABG HCO3 30.3 mmol/L (20.0-26.0) H 05/19/22 06:10 ABG O2 Saturation 97.6 % (95.0-99.0) 05/19/22 06:10 ABG O2 Content 8.1 (0.0-44) 05/19/22 06:10 ABG Base Excess 4.9 mmol/L (-2.0-3.0) H 05/19/22 06:10 ABG Hemoglobin 5.9 gm/dl (14.0-18.0) L 05/19/22 06:10 ABG Carboxyhemoglobin 1.5 % (0.0-5.0) 05/19/22 06:10 ABG Methemoglobin 0.4 % (0.0-1.5) 05/19/22 06:10 Oxyhemoglobin 95.8 % (95.0-99.0) 05/19/22 06:10 FiO2 55 % 05/19/22 06:10 Sodium 134 mmol/L (137-145) L 05/26/22 00:31 Potassium 4.5 mmol/L (3.6-5.0) 05/26/22 00:31 Chloride 92.4 mmol/L (98-107) L 05/26/22 00:31 Carbon Dioxide 37 mmol/L (22-30) H 05/26/22 00:31 Anion Gap 9 mmol/L 05/26/22 00:31 BUN 16 mg/dL (9-20) 05/26/22 00:31 Creatinine < 0.2 mg/dL (0.8-1.3) L 05/26/22 00:31 Estimated GFR > 60 ml/min 05/26/22 00:31 BUN/Creatinine Ratio 80 % 05/26/22 00:31 Glucose 140 mg/dL (75-100) H 05/26/22 00:31 POC Glucose 111 mg/dL (70-105) H 05/26/22 05:02 Lactic Acid 1.90 mmol/L (0.7-2.0) 04/02/22 19:39 Calcium 8.2 mg/dL (8.4-10.2) L 05/26/22 00:31 Phosphorus 2.70 mg/dL (2.5-4.5) 05/22/22 05:49 Magnesium 1.80 mg/dL (1.7-2.3) 05/22/22 05:49 Total Bilirubin 0.80 mg/dL (0.1-1.2) 04/02/22 19:39 AST 15 units/L (5-40) 04/02/22 19:39 ALT 9 units/L (7-56) 04/02/22 19:39 Alkaline Phosphatase 43 units/L (35-129) 04/02/22 19:39 Total Creatine Kinase 46 units/L (55-170) L 04/08/22 17:47 CK-MB (CK-2) 2.6 ng/mL (0.0-4.0) 04/08/22 17:47 CK-MB (CK-2) Rel Index 5.6 (0-4) H 04/08/22 17:47 Troponin T 0.031 ng/mL (0.00-0.029) H 04/08/22 17:47 C-Reactive Protein 31.20 mg/dL (0.00-1.30) H 05/17/22 03:41 Total Protein 4.6 g/dL (6.3-8.2) L 04/02/22 19:39 Albumin 2.7 g/dL (3.9-5) L 04/02/22 19:39 Albumin/Globulin Ratio 1.4 % 04/02/22 19:39 Triglycerides 80 mg/dL (2-149) 04/02/22 19:39 Cholesterol 94 mg/dL (50-199) 04/02/22 19:39 LDL Cholesterol Direct 27 mg/dL (50-130) L 04/02/22 19:39 HDL Cholesterol 47 mg/dL (40-59) 04/02/22 19:39 Cholesterol/HDL Ratio 2.00 % 04/02/22 19:39 Procalcitonin 1.30 ng/mL (<0.15) 05/17/22 03:41 Urine Color Aracely (Yellow) 05/18/22 03:50 Urine Turbidity Clear (Clear) 05/18/22 03:50 Urine pH 5.0 (5.0-7.0) 05/18/22 03:50 Ur Specific [place] 1.030 (1.003-1.030) 05/18/22 03:50 Urine Protein 30 mg/dl mg/dL (Negative) 05/18/22 03:50 Urine Glucose (UA) Neg mg/dL (Negative) 05/18/22 03:50 Urine Ketones Tr mg/dL (Negative) 05/18/22 03:50 Urine Blood Neg (Negative) 05/18/22 03:50 Urine Nitrite Neg (Negative) 05/18/22 03:50 Urine Bilirubin Neg (Negative) 05/18/22 03:50 Urine Urobilinogen < 2.0 mg/dL (<2.0) 05/18/22 03:50 Ur Leukocyte Esterase Neg (Negative) 05/18/22 03:50 Urine WBC (Auto) 1.0 /HPF (0.0-6.0) 05/18/22 03:50 Urine RBC (Auto) 1.0 /HPF (0.0-6.0) 05/18/22 03:50 U Epithel Cells (Auto) 2.0 /HPF (0-13.0) 05/18/22 03:50 Urine Bacteria (Auto) 1+ /HPF (Negative) 05/18/22 03:50 Hyaline Casts 1 /LPF 04/05/22 17:45 Urine Mucus Few /HPF 05/18/22 03:50 Nasal Screen MRSA (PCR) Negative (Negative) 04/05/22 12:37 Vancomycin Trough 16.2 ug/mL (5.0-20.0) 05/20/22 20:41 Coronavirus (PCR) Negative (Negative) 04/07/22 14:52 Blood Type O POSITIVE 05/18/22 13:56 Antibody Screen Negative 05/18/22 13:56 Crossmatch See Detail 05/18/22 13:56 Perez/IV: Voiding Method Condom Catheter Active Medications - Current Medications Current Medications: Generic Name Dose Route Start Last Admin Trade Name Freq PRN Reason Stop Dose Admin Acetaminophen 650 mg 04/02/22 23:53 05/24/22 00:52 Acetaminophen 325 Mg Tab PO 650 mg Q6H PRN Administration Pain MILD(1-3)/Fever >100.5/FAITH Acetylcysteine 200 mg 05/04/22 20:00 05/26/22 08:10 Acetylcysteine 20% 200 Mg/1 Ml *For Inhalation Use* INHALATION 200 mg Q12HRT SEGUNDO Administration Albuterol 2.5 mg 05/05/22 20:00 05/26/22 08:10 Albuterol 2.5 Mg/3 Ml Nebu IH 2.5 mg Q12HRT SEGUNDO Administration Lipase/Protease/Amylase 1 each 05/20/22 15:35 Lipase 10,500/Protease 25,000/Amylase 43,750 (Units) Dr Patterson FEEDTUBE PRN PRN For Clogged Feeding Tube Baclofen 10 mg 05/19/22 20:00 05/26/22 09:18 Baclofen 10 Mg Tab PO 10 mg TID SEGUNDO Administration Bisacodyl 10 mg 04/07/22 09:44 04/12/22 10:06 Bisacodyl 10 Mg Rect Supp TX 10 mg QDAY PRN Administration Constipation Docusate Sodium 100 mg 05/18/22 22:00 05/25/22 21:02 Docusate Sodium 100 Mg/10 Ml Oral Liqd FEEDTUBE Not Given BID SEGUNDO Famotidine 20 mg 04/06/22 10:00 05/26/22 09:17 Famotidine 20 Mg Tab FEEDTUBE 20 mg BID SEGUNDO Administration Fentanyl 50 mcg 04/04/22 15:56 05/19/22 21:24 Fentanyl 100 Mcg/2 Ml Inj IV 50 mcg Q2HR PRN Administration For CPOT of greater than 3 Heparin Sodium (Porcine) 5,000 unit 04/03/22 06:00 05/26/22 05:09 Heparin 5,000 Unit/1 Ml Vial SUB-Q 5,000 unit Q8HR SEGUNDO Administration CEFTAZIDIME/AVIBACTAM 2.5 gm/ 50 mls @ 25 mls/hr 05/26/22 09:00 05/26/22 09:55 Sodium Chloride IV 25 mls/hr Q8H SEGUNDO Administration Insulin Human Lispro 0 unit 05/05/22 06:00 05/26/22 05:05 Insulin Lispro 100 Unit/Ml SUB-Q Not Given Q8HR [facility] Protocol Magnesium Hydroxide 30 ml 04/02/22 23:53 Magnesium Hydroxide (Mom) Oral Liqd Udc PO Q4H PRN Constipation Metoprolol Tartrate 12.5 mg 05/03/22 13:00 05/26/22 05:04 Metoprolol Tartrate 25 Mg Tab FEEDTUBE Not Given Q6HR SEGUNDO Ondansetron HCl 4 mg 04/02/22 23:53 Ondansetron 4 Mg/2 Ml Inj IV Q8H PRN Nausea And Vomiting Polyethylene Glycol 17 gm 05/18/22 15:00 05/25/22 17:43 Polyethylene Glycol 3350 17 Gm Powder FEEDTUBE Not Given QDAY SEGUNDO Quetiapine Fumarate 50 mg 05/13/22 11:00 05/26/22 09:18 Quetiapine 100 Mg Tab FEEDTUBE 50 mg BID SEGUNDO Administration Scopolamine 1 each 05/12/22 09:00 05/24/22 09:35 Scopolamine Transdermal Patch 72 Hr TD 1 each Q3D SEGUNDO Administration Senna 8.8 mg 05/18/22 22:00 05/25/22 21:02 Sennosides Oral Liqd 8.8 Mg/5 Ml Oral Liqd FEEDTUBE Not Given QHS SEGUNDO Simple Syrup 15 ml 05/20/22 15:35 Simple Syrup 15 Ml FEEDTUBE PRN PRN Hypoglycemia Simple Syrup 30 ml 05/20/22 15:35 Simple Syrup 15 Ml FEEDTUBE PRN PRN Hypoglycemia Sodium Bicarbonate 325 mg 05/20/22 15:35 Sodium Bicarbonate 325 Mg Tab FEEDTUBE PRN PRN For Clogged Feeding Tube Sodium Chloride 10 ml 04/03/22 10:00 05/26/22 09:17 Sodium Chloride 0.9% 10 Ml Flush Syringe IV 10 ml BID SEGUNDO Administration Sodium Chloride 10 ml 04/02/22 23:53 05/16/22 05:10 Sodium Chloride 0.9% 10 Ml Flush Syringe IV 10 ml PRN PRN Administration LINE FLUSH Nutrition/Malnutrition Assess - Dietary Evaluation Nutrition/Malnutrition Findings: Nutrition Notes Start: 04/04/22 13:13 Freq: Status: Active Protocol: Document 05/20/22 15:20 COLLEEN (Rec: 05/20/22 15:36 COLLEEN [id number]) Nutrition Notes Initial or Follow up Brief Note Current Diagnosis Coronary Artery Disease, Decubitus(Pressure Ulcer), Sepsis,Respiratory Failure, Malnutrition Other Pertinent Diagnosis HCAP, ALS, Broncopneumonia, NSTEMI, Cardiomyopathy, ... Current Diet TF-Osmolite 1.5 Inderjit @ 55 ml/hr (since D 05/19). Height 5 ft 4.8 in Weight 48.6 kg [place] Body Weight (kg) 61.27 BMI 17.9 Weight change and time frame No body weight change reported in 3 days. Weight Status Underweight Subjective/Other Information RD consult for routine F/U on TF tolerance/continuation. Pt resumed Osmolite yesterday, but order was not place in Chart, I will procede to place the order. Percent of energy/protein needs met: Prescribed TF-Osmolite 1.5 Inderjit @ 55 ml/hr provides for energy/protein needs (1,980 Kcal/83 g) during LOS, 102% Kcal; 100% AA. #1 Nutrition Diagnosis Inadequate oral intake Diagnosis Progress(for reassessment Continues documentation) Is patient on ventilator? Yes Is Patient Ambulatory and/or Out of Bed No REE-([facility]-confined to bed) 1498.320 Kcal/Kg value to use for calculation 40 Approximate Energy Requirements Using 1944 kcal/Kg Calculation Used for Recommendations Kcal/kg Additional Notes Protein: 1.5-2 g/Kg ABW; 73-98 g/day. Fluids: 1 ml/Kcal, or as per MD. Nutrition Intervention Nutrition Support: Continue TF-Osmolite 1.5 Inderjit @ 55 ml/hr. Flush: 150 ml water Q 4 hr, or as per MD. Kcal 1,980 Protein (gm) 83 Carbohydrates (gm) 269 Fat (gm) 65 Fluid (mL) 1,006 Fiber (gm) 0 % RDI: 102% Kcal; 100% AA. Goal #1 Provide at least 75% of energy /protein needs through Enteral Feeding during LOS. Follow-Up By: 05/27/22 Additional Comments Continue monitoring TF tolerance and BM. <DIXIE BROWN - Last Filed: 05/27/22 07:12> Assessment and Plan Assessment and plan: I saw and evaluated the patient. I agree with the findings and the plan of care as documented in the Nurse Practitioner's~note, with the following corrections and additions. Hospitalist Physical - Constitutional Vitals: Temp Pulse Resp BP Pulse Ox 99.5 F 98 H 19 106/67 98 05/27/22 07:10 05/27/22 06:02 05/27/22 06:00 05/27/22 06:02 05/27/22 05:00 HEART Score - HEART Score Troponin: Troponin T 0.031 ng/mL (0.00-0.029) H 04/08/22 17:47 Results - Labs CBC & Chem 7: 05/26/22 00:31 05/26/22 00:31 Labs: Laboratory Last Values WBC 9.2 K/mm3 (4.5-11.0) 05/26/22 00:31 RBC 2.82 M/mm3 (3.65-5.03) L 05/26/22 00:31 Hgb 7.6 gm/dl (11.8-15.2) L 05/26/22 00:31 Hct 23.9 % (35.5-45.6) L 05/26/22 00:31 MCV 85 fl (84-94) 05/26/22 00:31 MCH 27 pg (28-32) L 05/26/22 00:31 MCHC 32 % (32-34) 05/26/22 00:31 RDW 17.4 % (13.2-15.2) H 05/26/22 00:31 Plt Count 360 K/mm3 (140-440) 05/26/22 00:31 Lymph % (Auto) 11.9 % (13.4-35.0) L 05/25/22 13:51 [place] % (Auto) 5.6 % (0.0-7.3) 05/25/22 13:51 Eos % (Auto) 0.9 % (0.0-4.3) 05/25/22 13:51 Baso % (Auto) 0.4 % (0.0-1.8) 05/25/22 13:51 Lymph # (Auto) 1.2 K/mm3 (1.2-5.4) 05/25/22 13:51 [place] # (Auto) 0.6 K/mm3 (0.0-0.8) 05/25/22 13:51 Eos # (Auto) 0.1 K/mm3 (0.0-0.4) 05/25/22 13:51 Baso # (Auto) 0.0 K/mm3 (0.0-0.1) 05/25/22 13:51 Add Manual Diff Complete 05/17/22 03:41 Total Counted 100 05/17/22 03:41 Seg Neutrophils % 81.2 % (40.0-70.0) H 05/25/22 13:51 Seg Neuts % (Manual) 96.0 % (40.0-70.0) H 05/17/22 03:41 Band Neutrophils % 0 % 05/17/22 03:41 Lymphocytes % (Manual) 1.0 % (13.4-35.0) L 05/17/22 03:41 Reactive Lymphs % (Man) 0 % 05/17/22 03:41 Monocytes % (Manual) 3.0 % (0.0-7.3) 05/17/22 03:41 Eosinophils % (Manual) 0 % (0.0-4.3) 05/17/22 03:41 Basophils % (Manual) 0 % (0.0-1.8) 05/17/22 03:41 Metamyelocytes % 0 % 05/17/22 03:41 Myelocytes % 0 % 05/17/22 03:41 Promyelocytes % 0 % 05/17/22 03:41 Blast Cells % 0 % 05/17/22 03:41 Nucleated RBC % Not Reportable 05/17/22 03:41 Seg Neutrophils # 8.4 K/mm3 (1.8-7.7) H 05/25/22 13:51 Seg Neutrophils # Man 15.6 K/mm3 (1.8-7.7) H 05/17/22 03:41 Band Neutrophils # 0.0 K/mm3 05/17/22 03:41 Lymphocytes # (Manual) 0.2 K/mm3 (1.2-5.4) L 05/17/22 03:41 Abs React Lymphs (Man) 0.0 K/mm3 05/17/22 03:41 Monocytes # (Manual) 0.5 K/mm3 (0.0-0.8) 05/17/22 03:41 Eosinophils # (Manual) 0.0 K/mm3 (0.0-0.4) 05/17/22 03:41 Basophils # (Manual) 0.0 K/mm3 (0.0-0.1) 05/17/22 03:41 Metamyelocytes # 0.0 K/mm3 05/17/22 03:41 Myelocytes # 0.0 K/mm3 05/17/22 03:41 Promyelocytes # 0.0 K/mm3 05/17/22 03:41 Blast Cells # 0.0 K/mm3 05/17/22 03:41 WBC Morphology Not Reportable 05/17/22 03:41 Hypersegmented Neuts Not Reportable 05/17/22 03:41 Hyposegmented Neuts Not Reportable 05/17/22 03:41 Hypogranular Neuts Not Reportable 05/17/22 03:41 Smudge Cells Not Reportable 05/17/22 03:41 Toxic Granulation Not Reportable 05/17/22 03:41 Toxic Vacuolation Not Reportable 05/17/22 03:41 Dohle Bodies Not Reportable 05/17/22 03:41 Pelger-Huet Anomaly Not Reportable 05/17/22 03:41 Terry Rods Not Reportable 05/17/22 03:41 Platelet Estimate Consistent w auto 05/17/22 03:41 Clumped Platelets Not Reportable 05/17/22 03:41 Plt Clumps, EDTA Not Reportable 05/17/22 03:41 Large Platelets Not Reportable 05/17/22 03:41 Giant Platelets Not Reportable 05/17/22 03:41 Platelet Satelliting Not Reportable 05/17/22 03:41 Plt Morphology Comment Not Reportable 05/17/22 03:41 RBC Morphology Not Reportable 05/17/22 03:41 Dimorphic RBCs Not Reportable 05/17/22 03:41 Polychromasia Not Reportable 05/17/22 03:41 Hypochromasia Not Reportable 05/17/22 03:41 Poikilocytosis Not Reportable 05/17/22 03:41 Anisocytosis 1+ 05/17/22 03:41 Microcytosis Not Reportable 05/17/22 03:41 Macrocytosis Not Reportable 05/17/22 03:41 Spherocytes Not Reportable 05/17/22 03:41 Pappenheimer Bodies Not Reportable 05/17/22 03:41 Sickle Cells Not Reportable 05/17/22 03:41 Target Cells Not Reportable 05/17/22 03:41 Tear Drop Cells Not Reportable 05/17/22 03:41 Ovalocytes Not Reportable 05/17/22 03:41 Helmet Cells Not Reportable 05/17/22 03:41 Patricio-Quinby Bodies Not Reportable 05/17/22 03:41 [place] Rings Not Reportable 05/17/22 03:41 [place] Cells Not Reportable 05/17/22 03:41 Bite Cells Not Reportable 05/17/22 03:41 Crenated Cell Not Reportable 05/17/22 03:41 Elliptocytes Not Reportable 05/17/22 03:41 Acanthocytes (Spur) Not Reportable 05/17/22 03:41 Rouleaux Not Reportable 05/17/22 03:41 Hemoglobin C Crystals Not Reportable 05/17/22 03:41 Schistocytes Not Reportable 05/17/22 03:41 Malaria parasites Not Reportable 05/17/22 03:41 [place] Bodies Not Reportable 05/17/22 03:41 Hem Pathologist Commnt No 05/17/22 03:41 PT 13.6 Sec. (12.2-14.9) 04/13/22 04:30 INR 0.94 (0.87-1.13) 04/13/22 04:30 APTT 35.7 Sec. (24.2-36.6) 04/07/22 03:51 ABG pH 7.385 pH Units (7.350-7.450) 05/19/22 06:10 ABG pCO2 51.9 mm Hg 05/19/22 06:10 ABG pO2 70.5 mm Hg (80.0-90.0) L 05/19/22 06:10 ABG HCO3 30.3 mmol/L (20.0-26.0) H 05/19/22 06:10 ABG O2 Saturation 97.6 % (95.0-99.0) 05/19/22 06:10 ABG O2 Content 8.1 (0.0-44) 05/19/22 06:10 ABG Base Excess 4.9 mmol/L (-2.0-3.0) H 05/19/22 06:10 ABG Hemoglobin 5.9 gm/dl (14.0-18.0) L 05/19/22 06:10 ABG Carboxyhemoglobin 1.5 % (0.0-5.0) 05/19/22 06:10 ABG Methemoglobin 0.4 % (0.0-1.5) 05/19/22 06:10 Oxyhemoglobin 95.8 % (95.0-99.0) 05/19/22 06:10 FiO2 55 % 05/19/22 06:10 Sodium 134 mmol/L (137-145) L 05/26/22 00:31 Potassium 4.5 mmol/L (3.6-5.0) 05/26/22 00:31 Chloride 92.4 mmol/L (98-107) L 05/26/22 00:31 Carbon Dioxide 37 mmol/L (22-30) H 05/26/22 00:31 Anion Gap 9 mmol/L 05/26/22 00:31 BUN 16 mg/dL (9-20) 05/26/22 00:31 Creatinine < 0.2 mg/dL (0.8-1.3) L 05/26/22 00:31 Estimated GFR > 60 ml/min 05/26/22 00:31 BUN/Creatinine Ratio 80 % 05/26/22 00:31 Glucose 140 mg/dL (75-100) H 05/26/22 00:31 POC Glucose 135 mg/dL (70-105) H 05/27/22 05:56 Lactic Acid 1.90 mmol/L (0.7-2.0) 04/02/22 19:39 Calcium 8.2 mg/dL (8.4-10.2) L 05/26/22 00:31 Phosphorus 2.70 mg/dL (2.5-4.5) 05/22/22 05:49 Magnesium 1.80 mg/dL (1.7-2.3) 05/22/22 05:49 Total Bilirubin 0.80 mg/dL (0.1-1.2) 04/02/22 19:39 AST 15 units/L (5-40) 04/02/22 19:39 ALT 9 units/L (7-56) 04/02/22 19:39 Alkaline Phosphatase 43 units/L (35-129) 04/02/22 19:39 Total Creatine Kinase 46 units/L (55-170) L 04/08/22 17:47 CK-MB (CK-2) 2.6 ng/mL (0.0-4.0) 04/08/22 17:47 CK-MB (CK-2) Rel Index 5.6 (0-4) H 04/08/22 17:47 Troponin T 0.031 ng/mL (0.00-0.029) H 04/08/22 17:47 C-Reactive Protein 31.20 mg/dL (0.00-1.30) H 05/17/22 03:41 Total Protein 4.6 g/dL (6.3-8.2) L 04/02/22 19:39 Albumin 2.7 g/dL (3.9-5) L 04/02/22 19:39 Albumin/Globulin Ratio 1.4 % 04/02/22 19:39 Triglycerides 80 mg/dL (2-149) 04/02/22 19:39 Cholesterol 94 mg/dL (50-199) 04/02/22 19:39 LDL Cholesterol Direct 27 mg/dL (50-130) L 04/02/22 19:39 HDL Cholesterol 47 mg/dL (40-59) 04/02/22 19:39 Cholesterol/HDL Ratio 2.00 % 04/02/22 19:39 Procalcitonin 1.30 ng/mL (<0.15) 05/17/22 03:41 Urine Color [place] (Yellow) 05/18/22 03:50 Urine Turbidity Clear (Clear) 05/18/22 03:50 Urine pH 5.0 (5.0-7.0) 05/18/22 03:50 Ur Specific [place] 1.030 (1.003-1.030) 05/18/22 03:50 Urine Protein 30 mg/dl mg/dL (Negative) 05/18/22 03:50 Urine Glucose (UA) Neg mg/dL (Negative) 05/18/22 03:50 Urine Ketones Tr mg/dL (Negative) 05/18/22 03:50 Urine Blood Neg (Negative) 05/18/22 03:50 Urine Nitrite Neg (Negative) 05/18/22 03:50 Urine Bilirubin Neg (Negative) 05/18/22 03:50 Urine Urobilinogen < 2.0 mg/dL (<2.0) 05/18/22 03:50 Ur Leukocyte Esterase Neg (Negative) 05/18/22 03:50 Urine WBC (Auto) 1.0 /HPF (0.0-6.0) 05/18/22 03:50 Urine RBC (Auto) 1.0 /HPF (0.0-6.0) 05/18/22 03:50 U Epithel Cells (Auto) 2.0 /HPF (0-13.0) 05/18/22 03:50 Urine Bacteria (Auto) 1+ /HPF (Negative) 05/18/22 03:50 Hyaline Casts 1 /LPF 04/05/22 17:45 Urine Mucus Few /HPF 05/18/22 03:50 Nasal Screen MRSA (PCR) Negative (Negative) 04/05/22 12:37 Vancomycin Trough 16.2 ug/mL (5.0-20.0) 05/20/22 20:41 Coronavirus (PCR) Negative (Negative) 04/07/22 14:52 Blood Type O POSITIVE 05/18/22 13:56 Antibody Screen Negative 05/18/22 13:56 Crossmatch See Detail 05/18/22 13:56 Perez/IV: Voiding Method Condom Catheter Active Medications - Current Medications Current Medications: Generic Name Dose Route Start Last Admin Trade Name Freq PRN Reason Stop Dose Admin Acetaminophen 650 mg 04/02/22 23:53 05/24/22 00:52 Acetaminophen 325 Mg Tab PO 650 mg Q6H PRN Administration Pain MILD(1-3)/Fever >100.5/FAITH Acetylcysteine 200 mg 05/04/22 20:00 05/26/22 20:25 Acetylcysteine 20% 200 Mg/1 Ml *For Inhalation Use* INHALATION 200 mg Q12HRT SEGUNDO Administration Albuterol 2.5 mg 05/05/22 20:00 05/26/22 20:25 Albuterol 2.5 Mg/3 Ml Nebu IH 2.5 mg Q12HRT SEGUNDO Administration Lipase/Protease/Amylase 1 each 05/20/22 15:35 Lipase 10,500/Protease 25,000/Amylase 43,750 (Units) Dr Patterson FEEDTUBE PRN PRN For Clogged Feeding Tube Baclofen 10 mg 05/19/22 20:00 05/26/22 20:38 Baclofen 10 Mg Tab PO 10 mg TID SEGUNDO Administration Bisacodyl 10 mg 04/07/22 09:44 04/12/22 10:06 Bisacodyl 10 Mg Rect Supp TX 10 mg QDAY PRN Administration Constipation Docusate Sodium 100 mg 05/18/22 22:00 05/26/22 22:00 Docusate Sodium 100 Mg/10 Ml Oral Liqd FEEDTUBE Not Given BID SEGUNDO Famotidine 20 mg 04/06/22 10:00 05/26/22 22:02 Famotidine 20 Mg Tab FEEDTUBE 20 mg BID SEGUNDO Administration Fentanyl 50 mcg 04/04/22 15:56 05/19/22 21:24 Fentanyl 100 Mcg/2 Ml Inj IV 50 mcg Q2HR PRN Administration For CPOT of greater than 3 Heparin Sodium (Porcine) 5,000 unit 04/03/22 06:00 05/27/22 06:01 Heparin 5,000 Unit/1 Ml Vial SUB-Q 5,000 unit Q8HR [facility] Administration CEFTAZIDIME/AVIBACTAM 2.5 gm/ 50 mls @ 25 mls/hr 05/26/22 09:00 05/27/22 04:03 Sodium Chloride IV 25 mls/hr Q8H [facility] Administration Insulin Human Lispro 0 unit 05/05/22 06:00 05/27/22 06:00 Insulin Lispro 100 Unit/Ml SUB-Q Not Given Q8HR [facility] Protocol Magnesium Hydroxide 30 ml 04/02/22 23:53 Magnesium Hydroxide (Mom) Oral Liqd Udc PO Q4H PRN Constipation Metoprolol Tartrate 12.5 mg 05/03/22 13:00 05/27/22 06:02 Metoprolol Tartrate 25 Mg Tab FEEDTUBE Not Given Q6HR [facility] Ondansetron HCl 4 mg 04/02/22 23:53 Ondansetron 4 Mg/2 Ml Inj IV Q8H PRN Nausea And Vomiting Polyethylene Glycol 17 gm 05/18/22 15:00 05/26/22 15:42 Polyethylene Glycol 3350 17 Gm Powder FEEDTUBE Not Given QDAY [facility] Quetiapine Fumarate 50 mg 05/13/22 11:00 05/26/22 22:01 Quetiapine 100 Mg Tab FEEDTUBE 50 mg BID SEGUNDO Administration Scopolamine 1 each 05/12/22 09:00 05/24/22 09:35 Scopolamine Transdermal Patch 72 Hr TD 1 each Q3D SEGUNDO Administration Senna 8.8 mg 05/18/22 22:00 05/26/22 22:00 Sennosides Oral Liqd 8.8 Mg/5 Ml Oral Liqd FEEDTUBE Not Given QHS SEGUNDO Simple Syrup 15 ml 05/20/22 15:35 Simple Syrup 15 Ml FEEDTUBE PRN PRN Hypoglycemia Simple Syrup 30 ml 05/20/22 15:35 Simple Syrup 15 Ml FEEDTUBE PRN PRN Hypoglycemia Sodium Bicarbonate 325 mg 05/20/22 15:35 Sodium Bicarbonate 325 Mg Tab FEEDTUBE PRN PRN For Clogged Feeding Tube Sodium Chloride 10 ml 04/03/22 10:00 05/26/22 22:02 Sodium Chloride 0.9% 10 Ml Flush Syringe IV 10 ml BID SEGNUDO Administration Sodium Chloride 10 ml 04/02/22 23:53 05/16/22 05:10 Sodium Chloride 0.9% 10 Ml Flush Syringe IV 10 ml PRN PRN Administration LINE FLUSH Nutrition/Malnutrition Assess - Dietary Evaluation Nutrition/Malnutrition Findings: Nutrition Notes Start: 04/04/22 13:13 Freq: Status: Active Protocol: Document 05/20/22 15:20 COLLEEN (Rec: 05/20/22 15:36 COLLEEN [id number]) Nutrition Notes Initial or Follow up Brief Note Current Diagnosis Coronary Artery Disease, Decubitus(Pressure Ulcer), Sepsis,Respiratory Failure, Malnutrition Other Pertinent Diagnosis HCAP, ALS, Broncopneumonia, NSTEMI, Cardiomyopathy, ... Current Diet TF-Osmolite 1.5 Inderjit @ 55 ml/hr (since D 05/19). Height 5 ft 4.8 in Weight 48.6 kg [place] Body Weight (kg) 61.27 BMI 17.9 Weight change and time frame No body weight change reported in 3 days. Weight Status Underweight Subjective/Other Information RD consult for routine F/U on TF tolerance/continuation. Pt resumed Osmolite yesterday, but order was not place in Chart, I will procede to place the order. Percent of energy/protein needs met: Prescribed TF-Osmolite 1.5 Inderjit @ 55 ml/hr provides for energy/protein needs (1,980 Kcal/83 g) during LOS, 102% Kcal; 100% AA. #1 Nutrition Diagnosis Inadequate oral intake Diagnosis Progress(for reassessment Continues documentation) Is patient on ventilator? Yes Is Patient Ambulatory and/or Out of Bed No REE-([facility]-confined to bed) 1498.320 Kcal/Kg value to use for calculation 40 Approximate Energy Requirements Using 1944 kcal/Kg Calculation Used for Recommendations Kcal/kg Additional Notes Protein: 1.5-2 g/Kg ABW; 73-98 g/day. Fluids: 1 ml/Kcal, or as per MD. Nutrition Intervention Nutrition Support: Continue TF-Osmolite 1.5 Inderjit @ 55 ml/hr. Flush: 150 ml water Q 4 hr, or as per MD. Kcal 1,980 Protein (gm) 83 Carbohydrates (gm) 269 Fat (gm) 65 Fluid (mL) 1,006 Fiber (gm) 0 % RDI: 102% Kcal; 100% AA. Goal #1 Provide at least 75% of energy /protein needs through Enteral Feeding during LOS. Follow-Up By: 05/27/22 Additional Comments Continue monitoring TF tolerance and BM.
--- NOTE | 2022-05-26 14:49 | Progress Note ---
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 Right lung hemiopacification- Atelectasis s/p Bronchoscopy Oropharyngeal dysphagia s/p PEG Protein calorie malnutrition Acute Bronchopneumonia HCAP Hypotension NSTEMI H/o Amyotrophic Lateral Sclerosis Nonverbal at Baseline Plan for wound vac change, removal of mesh in the OR in the morning Home vent setting- Tidal volume 500, PEEP 10 and liter flow of 10 Perez is indicated to help facilitate wound healing- Unstageable sacral decub, on wound vac -Trach care, airway clearance, -continue with bronchodilators and chest PT -Continue with mucolytics and chest PT -Titrate supplemental oxygen to keep SpO2 89-92% -VAP bundle addressed, aspiration precautions HOB >40 -antibiotics, ID following -Trend temperature curve and WCC -keep K >3.5; Mg at 2 and Phos >2.5 to optimize respiratory muscle function -Monitoring renal function, hemodynamics and electrolyte profile -Accuchecks with glycemic control. target blood glucose 140-180 mg/dL. Avoid hypoglycemia -Continue enteric nutritional support, bowel regimen -VTE prophylaxis- Heparin -Avoid nephrotoxins and renally dose all medications -Stress ulcer prophylaxis- Famotidine -Mobility, frequent turning, off loading per facility protocol to prevent pressure ulcers -Maintain sleep wake cycle, avoid benzodiazepines. -Limit delirium CONDITION:CRITICAL PROGNOSIS: GUARDED CODE STATUS; FULL CODE The high probability of a clinically significant, sudden or life threatening deterioration of the respiratory, cardiovascular, neurology system required my full and direct attention, intervention and personal management. The aggregate critical care time was [33] minutes. 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 Vitals, labs, medications, chart and imaging reviewed. Discussed with respiratory and nursing care staff. s/p trach and PEG. On Hospital vent, PEEP +8/FIO2 45% CRE in wound. Plan for OR in am for further surgical intervention re wound Remains on home ventilator Objective Vital Signs - 12hr 05/26/22 05/26/22 05/26/22 03:02 03:10 04:00 Temperature 98.3 F Pulse Rate 104 H 108 H Pulse Rate [ Anterior Bilateral Throughout] Pulse Rate [ Bilateral Throughout] Pulse Rate [ 95 H From Monitor] Respiratory 15 22 Rate Respiratory Rate [Anterior Bilateral Throughout] Respiratory Rate [Bilateral Throughout] Blood Pressure 107/69 109/71 O2 Sat by Pulse 97 95 Oximetry O2 Sat by Pulse Oximetry [ Assessment] 05/26/22 05/26/22 05/26/22 04:18 05:00 05:04 Temperature Pulse Rate 101 H 90 97 H Pulse Rate [ Anterior Bilateral Throughout] Pulse Rate [ Bilateral Throughout] Pulse Rate [ From Monitor] Respiratory 15 Rate Respiratory Rate [Anterior Bilateral Throughout] Respiratory Rate [Bilateral Throughout] Blood Pressure 109/71 100/65 100/65 O2 Sat by Pulse 97 96 Oximetry O2 Sat by Pulse Oximetry [ Assessment] 05/26/22 05/26/22 05/26/22 06:00 07:00 08:00 Temperature 97.6 F Pulse Rate 103 H 92 H 96 H Pulse Rate [ Anterior Bilateral Throughout] Pulse Rate [ Bilateral Throughout] Pulse Rate [ 93 H From Monitor] Respiratory 28 H 14 15 Rate Respiratory Rate [Anterior Bilateral Throughout] Respiratory Rate [Bilateral Throughout] Blood Pressure 105/86 113/72 105/66 O2 Sat by Pulse 99 98 98 Oximetry O2 Sat by Pulse Oximetry [ Assessment] 05/26/22 05/26/22 05/26/22 08:11 08:16 09:00 Temperature Pulse Rate 97 H Pulse Rate [ 99 H Anterior Bilateral Throughout] Pulse Rate [ 96 H Bilateral Throughout] Pulse Rate [ From Monitor] Respiratory 18 Rate Respiratory 18 Rate [Anterior Bilateral Throughout] Respiratory 16 Rate [Bilateral Throughout] Blood Pressure 110/68 O2 Sat by Pulse 99 Oximetry O2 Sat by Pulse 99 Oximetry [ Assessment] 05/26/22 05/26/22 05/26/22 10:00 11:00 12:00 Temperature 98.8 F Pulse Rate 116 H 94 H 93 H Pulse Rate [ Anterior Bilateral Throughout] Pulse Rate [ Bilateral Throughout] Pulse Rate [ 93 H From Monitor] Respiratory 16 16 17 Rate Respiratory Rate [Anterior Bilateral Throughout] Respiratory Rate [Bilateral Throughout] Blood Pressure 107/73 108/72 113/75 O2 Sat by Pulse 96 100 Oximetry O2 Sat by Pulse Oximetry [ Assessment] 05/26/22 05/26/22 12:52 13:00 Temperature Pulse Rate 100 H 93 H Pulse Rate [ Anterior Bilateral Throughout] Pulse Rate [ Bilateral Throughout] Pulse Rate [ From Monitor] Respiratory 16 Rate Respiratory Rate [Anterior Bilateral Throughout] Respiratory Rate [Bilateral Throughout] Blood Pressure 104/73 O2 Sat by Pulse 100 100 Oximetry O2 Sat by Pulse Oximetry [ Assessment] Constitutional: no acute distress, alert, other (resting in bed with mildly increased respiratory effort at rest) Eyes: non-icteric ENT: oropharynx moist, other (+ midline tracheostomy to home vent) Neck: supple, no lymphadenopathy, no JVD Effort: mildly labored Ascultation: Bilateral: diminished breath sounds (bases), rhonchi Percussion: Bilateral: not dull Cardiovascular: regular rate and rhythm, other (S1,S2) Gastrointestinal: normoactive bowel sounds, soft, non-tender, non-distended Integumentary: normal, decubitus ulcer (see wound care pictures- wound vac) Extremities: no cyanosis, no edema, pink and warm, pulses normal Neurologic: pupils equal and round, other (functional quadriplegia) Psychiatric: mood appropriate, affect normal CBC and BMP: 05/31/22 04:55 05/31/22 04:55 ABG, PT/INR, D-dimer: ABG ABG pH 7.385 pH Units (7.350-7.450) 05/19/22 06:10 ABG pCO2 51.9 mm Hg 05/19/22 06:10 ABG pO2 70.5 mm Hg (80.0-90.0) L 05/19/22 06:10 ABG O2 Saturation 97.6 % (95.0-99.0) 05/19/22 06:10 PT/INR, D-dimer PT 13.6 Sec. (12.2-14.9) 04/13/22 04:30 INR 0.94 (0.87-1.13) 04/13/22 04:30 Abnormal lab findings: Abnormal Labs 04/02/22 04/02/22 04/02/22 19:39 19:39 19:39 WBC 14.3 H RBC Hgb Hct MCV 96 H MCH MCHC RDW Plt Count 104 L Lymph % (Auto) [place] % (Auto) Lymph # (Auto) [place] # (Auto) Seg Neutrophils % Seg Neuts % (Manual) 94.0 H Lymphocytes % (Manual) 1.0 L Seg Neutrophils # Seg Neutrophils # Man 13.4 H Lymphocytes # (Manual) 0.1 L PT 15.9 H INR 1.14 H ABG pH ABG pO2 ABG HCO3 ABG O2 Saturation ABG Base Excess ABG Hemoglobin Oxyhemoglobin Sodium 151 H Potassium Chloride Carbon Dioxide BUN Creatinine 0.5 L Glucose POC Glucose Calcium 8.2 L Phosphorus Magnesium 1.60 L Total Creatine Kinase CK-MB (CK-2) Rel Index Troponin T 0.048 H C-Reactive Protein Total Protein 4.6 L Albumin 2.7 L LDL Cholesterol Direct 27 L Urine WBC (Auto) Crossmatch 04/02/22 04/03/22 04/03/22 19:42 05:14 06:30 WBC RBC Hgb Hct MCV MCH MCHC RDW Plt Count Lymph % (Auto) [place] % (Auto) Lymph # (Auto) [place] # (Auto) Seg Neutrophils % Seg Neuts % (Manual) Lymphocytes % (Manual) Seg Neutrophils # Seg Neutrophils # Man Lymphocytes # (Manual) PT INR ABG pH 7.471 H 7.496 H ABG pO2 47.8 L 91.0 H ABG HCO3 30.6 H ABG O2 Saturation 94.4 L ABG Base Excess 6.2 H ABG Hemoglobin 11.0 L 12.8 L Oxyhemoglobin 93.1 L Sodium 149 H Potassium 3.4 L Chloride Carbon Dioxide BUN Creatinine 0.4 L Glucose POC Glucose Calcium Phosphorus Magnesium Total Creatine Kinase CK-MB (CK-2) Rel Index Troponin T C-Reactive Protein Total Protein Albumin LDL Cholesterol Direct Urine WBC (Auto) Crossmatch 04/04/22 04/04/22 04/04/22 04:18 04:18 05:50 WBC 11.8 H RBC Hgb Hct MCV MCH MCHC RDW Plt Count 132 L Lymph % (Auto) [place] % (Auto) Lymph # (Auto) [place] # (Auto) Seg Neutrophils % Seg Neuts % (Manual) Lymphocytes % (Manual) Seg Neutrophils # Seg Neutrophils # Man Lymphocytes # (Manual) PT INR ABG pH 7.517 H ABG pO2 115.5 H ABG HCO3 29.9 H ABG O2 Saturation ABG Base Excess 6.7 H ABG Hemoglobin 12.3 L Oxyhemoglobin Sodium Potassium 3.5 L Chloride Carbon Dioxide 31 H BUN Creatinine 0.3 L Glucose 153 H POC Glucose Calcium Phosphorus 1.40 L Magnesium 1.50 L Total Creatine Kinase CK-MB (CK-2) Rel Index Troponin T C-Reactive Protein 31.60 H Total Protein Albumin LDL Cholesterol Direct Urine WBC (Auto) Crossmatch 04/05/22 04/05/22 04/05/22 02:50 05:25 11:28 WBC RBC Hgb Hct MCV MCH MCHC RDW Plt Count Lymph % (Auto) [place] % (Auto) Lymph # (Auto) [place] # (Auto) Seg Neutrophils % Seg Neuts % (Manual) Lymphocytes % (Manual) Seg Neutrophils # Seg Neutrophils # Man Lymphocytes # (Manual) PT INR ABG pH 7.455 H ABG pO2 50.7 L ABG HCO3 30.5 H ABG O2 Saturation 89.4 L ABG Base Excess 5.9 H ABG Hemoglobin 11.8 L Oxyhemoglobin 88.2 L Sodium Potassium Chloride Carbon Dioxide 32 H BUN Creatinine 0.2 L Glucose 110 H POC Glucose 124 H Calcium 7.9 L Phosphorus Magnesium Total Creatine Kinase CK-MB (CK-2) Rel Index Troponin T C-Reactive Protein Total Protein Albumin LDL Cholesterol Direct Urine WBC (Auto) Crossmatch 04/05/22 04/05/22 04/06/22 17:45 Unknown 04:00 WBC RBC 3.55 L Hgb 11.1 L 11.5 L Hct 33.2 L 35.1 L MCV MCH MCHC RDW Plt Count 113 L 114 L Lymph % (Auto) [place] % (Auto) Lymph # (Auto) [place] # (Auto) Seg Neutrophils % Seg Neuts % (Manual) Lymphocytes % (Manual) Seg Neutrophils # Seg Neutrophils # Man Lymphocytes # (Manual) PT INR ABG pH ABG pO2 ABG HCO3 ABG O2 Saturation ABG Base Excess ABG Hemoglobin Oxyhemoglobin Sodium Potassium Chloride Carbon Dioxide BUN Creatinine Glucose POC Glucose Calcium Phosphorus Magnesium Total Creatine Kinase CK-MB (CK-2) Rel Index Troponin T C-Reactive Protein Total Protein Albumin LDL Cholesterol Direct Urine WBC (Auto) 8.0 H Crossmatch 04/06/22 04/06/22 04/07/22 04:00 08:30 00:04 WBC RBC Hgb Hct MCV MCH MCHC RDW Plt Count Lymph % (Auto) [place] % (Auto) Lymph # (Auto) [place] # (Auto) Seg Neutrophils % Seg Neuts % (Manual) Lymphocytes % (Manual) Seg Neutrophils # Seg Neutrophils # Man Lymphocytes # (Manual) PT INR ABG pH ABG pO2 60.8 L ABG HCO3 30.5 H ABG O2 Saturation 93.3 L ABG Base Excess 4.9 H ABG Hemoglobin 12.4 L Oxyhemoglobin 92.1 L Sodium Potassium 3.0 L Chloride Carbon Dioxide BUN Creatinine < 0.2 L Glucose 130 H POC Glucose 117 H Calcium 8.1 L Phosphorus Magnesium Total Creatine Kinase CK-MB (CK-2) Rel Index Troponin T C-Reactive Protein Total Protein Albumin LDL Cholesterol Direct Urine WBC (Auto) Crossmatch 04/07/22 04/07/22 04/07/22 03:51 03:51 03:51 WBC 14.6 H RBC 3.57 L Hgb 11.1 L Hct 33.2 L MCV MCH MCHC RDW Plt Count 118 L Lymph % (Auto) 4.3 L [place] % (Auto) 8.8 H Lymph # (Auto) 0.6 L [place] # (Auto) 1.3 H Seg Neutrophils % 86.6 H Seg Neuts % (Manual) Lymphocytes % (Manual) Seg Neutrophils # 12.7 H Seg Neutrophils # Man Lymphocytes # (Manual) PT 15.2 H INR ABG pH ABG pO2 ABG HCO3 ABG O2 Saturation ABG Base Excess ABG Hemoglobin Oxyhemoglobin Sodium 133 L Potassium Chloride 96.0 L Carbon Dioxide 31 H BUN Creatinine 0.2 L Glucose 130 H POC Glucose Calcium 8.0 L Phosphorus Magnesium Total Creatine Kinase CK-MB (CK-2) Rel Index Troponin T C-Reactive Protein Total Protein Albumin LDL Cholesterol Direct Urine WBC (Auto) Crossmatch 04/07/22 04/07/22 04/08/22 04:25 09:10 04:49 WBC 16.1 H RBC 3.54 L Hgb 10.9 L Hct 33.3 L MCV MCH MCHC RDW Plt Count Lymph % (Auto) [place] % (Auto) Lymph # (Auto) [place] # (Auto) Seg Neutrophils % Seg Neuts % (Manual) Lymphocytes % (Manual) Seg Neutrophils # Seg Neutrophils # Man Lymphocytes # (Manual) PT INR ABG pH ABG pO2 71.0 L 63.4 L ABG HCO3 31.5 H 40.0 H ABG O2 Saturation 94.9 L ABG Base Excess 5.9 H 13.6 H ABG Hemoglobin 11.3 L 9.0 L Oxyhemoglobin 93.6 L Sodium Potassium Chloride Carbon Dioxide BUN Creatinine Glucose POC Glucose Calcium Phosphorus Magnesium Total Creatine Kinase CK-MB (CK-2) Rel Index Troponin T C-Reactive Protein Total Protein Albumin LDL Cholesterol Direct Urine WBC (Auto) Crossmatch 04/08/22 04/08/22 04/08/22 04:49 09:53 10:25 WBC RBC Hgb Hct MCV MCH MCHC RDW Plt Count Lymph % (Auto) [place] % (Auto) Lymph # (Auto) [place] # (Auto) Seg Neutrophils % Seg Neuts % (Manual) Lymphocytes % (Manual) Seg Neutrophils # Seg Neutrophils # Man Lymphocytes # (Manual) PT INR ABG pH ABG pO2 ABG HCO3 34.7 H ABG O2 Saturation ABG Base Excess 7.9 H ABG Hemoglobin 11.0 L Oxyhemoglobin Sodium 136 L Potassium Chloride 97.7 L Carbon Dioxide 33 H BUN Creatinine 0.2 L Glucose 155 H POC Glucose Calcium Phosphorus Magnesium Total Creatine Kinase CK-MB (CK-2) Rel Index Troponin T 0.030 H C-Reactive Protein Total Protein Albumin LDL Cholesterol Direct Urine WBC (Auto) Crossmatch 04/08/22 04/08/22 04/08/22 11:19 17:47 18:06 WBC RBC Hgb Hct MCV MCH MCHC RDW Plt Count Lymph % (Auto) [place] % (Auto) Lymph # (Auto) [place] # (Auto) Seg Neutrophils % Seg Neuts % (Manual) Lymphocytes % (Manual) Seg Neutrophils # Seg Neutrophils # Man Lymphocytes # (Manual) PT INR ABG pH ABG pO2 ABG HCO3 ABG O2 Saturation ABG Base Excess ABG Hemoglobin Oxyhemoglobin Sodium Potassium Chloride Carbon Dioxide BUN Creatinine Glucose POC Glucose 121 H Calcium Phosphorus Magnesium Total Creatine Kinase 31 L 46 L CK-MB (CK-2) Rel Index 6.4 H 5.6 H Troponin T 0.030 H 0.031 H C-Reactive Protein Total Protein Albumin LDL Cholesterol Direct Urine WBC (Auto) Crossmatch 04/09/22 04/09/22 04/09/22 04:35 04:35 11:24 WBC 11.5 H RBC 3.16 L Hgb 9.9 L Hct 29.4 L MCV MCH MCHC RDW Plt Count 131 L Lymph % (Auto) [place] % (Auto) Lymph # (Auto) [place] # (Auto) Seg Neutrophils % Seg Neuts % (Manual) Lymphocytes % (Manual) Seg Neutrophils # Seg Neutrophils # Man Lymphocytes # (Manual) PT INR ABG pH ABG pO2 ABG HCO3 ABG O2 Saturation ABG Base Excess ABG Hemoglobin Oxyhemoglobin Sodium Potassium Chloride 97.1 L Carbon Dioxide 35 H BUN Creatinine < 0.2 L Glucose 145 H POC Glucose 147 H Calcium Phosphorus Magnesium Total Creatine Kinase CK-MB (CK-2) Rel Index Troponin T C-Reactive Protein Total Protein Albumin LDL Cholesterol Direct Urine WBC (Auto) Crossmatch 04/09/22 04/09/22 04/09/22 13:00 17:32 23:48 WBC RBC Hgb Hct MCV MCH MCHC RDW Plt Count Lymph % (Auto) [place] % (Auto) Lymph # (Auto) [place] # (Auto) Seg Neutrophils % Seg Neuts % (Manual) Lymphocytes % (Manual) Seg Neutrophils # Seg Neutrophils # Man Lymphocytes # (Manual) PT INR ABG pH ABG pO2 66.6 L ABG HCO3 38.2 H ABG O2 Saturation 94.4 L ABG Base Excess 10.7 H ABG Hemoglobin 10.7 L Oxyhemoglobin 92.8 L Sodium Potassium Chloride Carbon Dioxide BUN Creatinine Glucose POC Glucose 143 H 114 H Calcium Phosphorus Magnesium Total Creatine Kinase CK-MB (CK-2) Rel Index Troponin T C-Reactive Protein Total Protein Albumin LDL Cholesterol Direct Urine WBC (Auto) Crossmatch 04/10/22 04/10/22 04/10/22 04:48 04:48 05:34 WBC RBC 2.91 L Hgb 9.1 L Hct 27.7 L MCV 95 H MCH MCHC RDW Plt Count Lymph % (Auto) [place] % (Auto) Lymph # (Auto) [place] # (Auto) Seg Neutrophils % Seg Neuts % (Manual) Lymphocytes % (Manual) Seg Neutrophils # Seg Neutrophils # Man Lymphocytes # (Manual) PT INR ABG pH ABG pO2 ABG HCO3 ABG O2 Saturation ABG Base Excess ABG Hemoglobin Oxyhemoglobin Sodium Potassium Chloride 95.7 L Carbon Dioxide 38 H BUN Creatinine < 0.2 L Glucose 118 H POC Glucose 127 H Calcium Phosphorus Magnesium Total Creatine Kinase CK-MB (CK-2) Rel Index Troponin T C-Reactive Protein Total Protein Albumin LDL Cholesterol Direct Urine WBC (Auto) Crossmatch 04/10/22 04/11/22 04/11/22 23:10 04:15 04:15 WBC 17.2 H RBC 2.98 L Hgb 9.2 L Hct 27.9 L MCV MCH MCHC RDW Plt Count Lymph % (Auto) [place] % (Auto) Lymph # (Auto) [place] # (Auto) Seg Neutrophils % Seg Neuts % (Manual) Lymphocytes % (Manual) Seg Neutrophils # Seg Neutrophils # Man Lymphocytes # (Manual) PT INR ABG pH ABG pO2 ABG HCO3 ABG O2 Saturation ABG Base Excess ABG Hemoglobin Oxyhemoglobin Sodium Potassium Chloride 96.1 L Carbon Dioxide 35 H BUN Creatinine < 0.2 L Glucose 138 H POC Glucose 106 H Calcium 8.3 L Phosphorus Magnesium Total Creatine Kinase CK-MB (CK-2) Rel Index Troponin T C-Reactive Protein Total Protein Albumin LDL Cholesterol Direct Urine WBC (Auto) Crossmatch 04/11/22 04/11/22 04/11/22 05:31 13:18 16:20 WBC RBC Hgb Hct MCV MCH MCHC RDW Plt Count Lymph % (Auto) [place] % (Auto) Lymph # (Auto) [place] # (Auto) Seg Neutrophils % Seg Neuts % (Manual) Lymphocytes % (Manual) Seg Neutrophils # Seg Neutrophils # Man Lymphocytes # (Manual) PT INR ABG pH ABG pO2 57.8 L ABG HCO3 40.5 H ABG O2 Saturation 90.6 L ABG Base Excess 12.6 H ABG Hemoglobin 10.5 L Oxyhemoglobin 89.0 L Sodium Potassium Chloride Carbon Dioxide BUN Creatinine Glucose POC Glucose 129 H 132 H Calcium Phosphorus Magnesium Total Creatine Kinase CK-MB (CK-2) Rel Index Troponin T C-Reactive Protein Total Protein Albumin LDL Cholesterol Direct Urine WBC (Auto) Crossmatch 04/11/22 04/11/22 04/12/22 17:29 23:17 04:00 WBC 17.4 H RBC 2.96 L Hgb 9.0 L Hct 28.0 L MCV 95 H MCH MCHC RDW Plt Count Lymph % (Auto) [place] % (Auto) Lymph # (Auto) [place] # (Auto) Seg Neutrophils % Seg Neuts % (Manual) Lymphocytes % (Manual) Seg Neutrophils # Seg Neutrophils # Man Lymphocytes # (Manual) PT INR ABG pH ABG pO2 ABG HCO3 ABG O2 Saturation ABG Base Excess ABG Hemoglobin Oxyhemoglobin Sodium Potassium Chloride Carbon Dioxide BUN Creatinine Glucose POC Glucose 125 H 151 H Calcium Phosphorus Magnesium Total Creatine Kinase CK-MB (CK-2) Rel Index Troponin T C-Reactive Protein Total Protein Albumin LDL Cholesterol Direct Urine WBC (Auto) Crossmatch 04/12/22 04/12/22 04/12/22 04:00 17:03 23:39 WBC RBC Hgb Hct MCV MCH MCHC RDW Plt Count Lymph % (Auto) [place] % (Auto) Lymph # (Auto) [place] # (Auto) Seg Neutrophils % Seg Neuts % (Manual) Lymphocytes % (Manual) Seg Neutrophils # Seg Neutrophils # Man Lymphocytes # (Manual) PT INR ABG pH ABG pO2 ABG HCO3 ABG O2 Saturation ABG Base Excess ABG Hemoglobin Oxyhemoglobin Sodium Potassium Chloride 97.4 L Carbon Dioxide 37 H BUN Creatinine < 0.2 L Glucose 127 H POC Glucose 106 H 107 H Calcium Phosphorus Magnesium Total Creatine Kinase CK-MB (CK-2) Rel Index Troponin T C-Reactive Protein Total Protein Albumin LDL Cholesterol Direct Urine WBC (Auto) Crossmatch 04/13/22 04/13/22 04/13/22 04:30 04:30 17:39 WBC 14.1 H RBC 2.66 L Hgb 8.4 L Hct 25.5 L MCV 96 H MCH MCHC RDW Plt Count Lymph % (Auto) [place] % (Auto) Lymph # (Auto) [place] # (Auto) Seg Neutrophils % Seg Neuts % (Manual) Lymphocytes % (Manual) Seg Neutrophils # Seg Neutrophils # Man Lymphocytes # (Manual) PT INR ABG pH ABG pO2 ABG HCO3 ABG O2 Saturation ABG Base Excess ABG Hemoglobin Oxyhemoglobin Sodium Potassium Chloride 93.9 L Carbon Dioxide 39 H BUN Creatinine < 0.2 L Glucose POC Glucose 134 H Calcium Phosphorus 1.90 L Magnesium Total Creatine Kinase CK-MB (CK-2) Rel Index Troponin T C-Reactive Protein Total Protein Albumin LDL Cholesterol Direct Urine WBC (Auto) Crossmatch 04/14/22 04/14/22 04/14/22 05:03 05:03 09:10 WBC 15.6 H RBC 3.02 L Hgb 9.3 L Hct 28.8 L MCV 95 H MCH MCHC RDW Plt Count Lymph % (Auto) [place] % (Auto) Lymph # (Auto) [place] # (Auto) Seg Neutrophils % Seg Neuts % (Manual) Lymphocytes % (Manual) Seg Neutrophils # Seg Neutrophils # Man Lymphocytes # (Manual) PT INR ABG pH ABG pO2 66.9 L ABG HCO3 44.5 H ABG O2 Saturation ABG Base Excess 17.2 H ABG Hemoglobin 8.1 L Oxyhemoglobin 94.8 L Sodium Potassium Chloride 93.8 L Carbon Dioxide 42 H* BUN Creatinine < 0.2 L Glucose 117 H POC Glucose Calcium Phosphorus Magnesium Total Creatine Kinase CK-MB (CK-2) Rel Index Troponin T C-Reactive Protein Total Protein Albumin LDL Cholesterol Direct Urine WBC (Auto) Crossmatch 04/15/22 04/15/22 04/16/22 04:44 04:44 04:16 WBC 13.0 H 12.6 H RBC 3.19 L 3.09 L Hgb 9.6 L 9.5 L Hct 30.2 L 29.1 L MCV 95 H MCH MCHC RDW Plt Count 456 H Lymph % (Auto) [place] % (Auto) Lymph # (Auto) [place] # (Auto) Seg Neutrophils % Seg Neuts % (Manual) Lymphocytes % (Manual) Seg Neutrophils # Seg Neutrophils # Man Lymphocytes # (Manual) PT INR ABG pH ABG pO2 ABG HCO3 ABG O2 Saturation ABG Base Excess ABG Hemoglobin Oxyhemoglobin Sodium Potassium Chloride 95.5 L Carbon Dioxide 37 H BUN Creatinine < 0.2 L Glucose POC Glucose Calcium Phosphorus Magnesium Total Creatine Kinase CK-MB (CK-2) Rel Index Troponin T C-Reactive Protein Total Protein Albumin LDL Cholesterol Direct Urine WBC (Auto) Crossmatch 04/16/22 04/16/22 04/16/22 04:16 05:00 14:00 WBC RBC Hgb Hct MCV MCH MCHC RDW Plt Count Lymph % (Auto) [place] % (Auto) Lymph # (Auto) [place] # (Auto) Seg Neutrophils % Seg Neuts % (Manual) Lymphocytes % (Manual) Seg Neutrophils # Seg Neutrophils # Man Lymphocytes # (Manual) PT INR ABG pH 7.324 L ABG pO2 55.6 L ABG HCO3 45.3 H ABG O2 Saturation 87.1 L ABG Base Excess 16.6 H ABG Hemoglobin 8.6 L Oxyhemoglobin 85.7 L Sodium Potassium Chloride 97.6 L Carbon Dioxide 36 H BUN Creatinine < 0.2 L Glucose 109 H POC Glucose 120 H Calcium Phosphorus Magnesium Total Creatine Kinase CK-MB (CK-2) Rel Index Troponin T C-Reactive Protein Total Protein Albumin LDL Cholesterol Direct Urine WBC (Auto) Crossmatch 04/17/22 04/17/22 04/17/22 04:36 04:36 04:57 WBC 14.4 H RBC 3.08 L Hgb 9.4 L Hct 29.0 L MCV MCH MCHC RDW Plt Count Lymph % (Auto) [place] % (Auto) Lymph # (Auto) [place] # (Auto) Seg Neutrophils % Seg Neuts % (Manual) Lymphocytes % (Manual) Seg Neutrophils # Seg Neutrophils # Man Lymphocytes # (Manual) PT INR ABG pH ABG pO2 ABG HCO3 ABG O2 Saturation ABG Base Excess ABG Hemoglobin Oxyhemoglobin Sodium Potassium Chloride 95.9 L Carbon Dioxide 39 H BUN Creatinine < 0.2 L Glucose 140 H POC Glucose 137 H Calcium 8.3 L Phosphorus Magnesium Total Creatine Kinase CK-MB (CK-2) Rel Index Troponin T C-Reactive Protein Total Protein Albumin LDL Cholesterol Direct Urine WBC (Auto) Crossmatch 04/17/22 04/17/22 04/18/22 09:15 18:01 04:20 WBC 11.2 H RBC 3.00 L Hgb 9.3 L Hct 28.6 L MCV 95 H MCH MCHC RDW Plt Count Lymph % (Auto) [place] % (Auto) Lymph # (Auto) [place] # (Auto) Seg Neutrophils % Seg Neuts % (Manual) Lymphocytes % (Manual) Seg Neutrophils # Seg Neutrophils # Man Lymphocytes # (Manual) PT INR ABG pH 7.345 L ABG pO2 ABG HCO3 48.2 H ABG O2 Saturation ABG Base Excess 19.2 H ABG Hemoglobin 9.7 L Oxyhemoglobin Sodium Potassium Chloride Carbon Dioxide BUN Creatinine Glucose POC Glucose 129 H Calcium Phosphorus Magnesium Total Creatine Kinase CK-MB (CK-2) Rel Index Troponin T C-Reactive Protein Total Protein Albumin LDL Cholesterol Direct Urine WBC (Auto) Crossmatch 04/18/22 04/18/22 04/18/22 04:20 17:35 23:50 WBC RBC Hgb Hct MCV MCH MCHC RDW Plt Count Lymph % (Auto) [place] % (Auto) Lymph # (Auto) [place] # (Auto) Seg Neutrophils % Seg Neuts % (Manual) Lymphocytes % (Manual) Seg Neutrophils # Seg Neutrophils # Man Lymphocytes # (Manual) PT INR ABG pH ABG pO2 ABG HCO3 ABG O2 Saturation ABG Base Excess ABG Hemoglobin Oxyhemoglobin Sodium Potassium Chloride 96.8 L Carbon Dioxide 43 H* BUN 22 H Creatinine < 0.2 L Glucose 137 H POC Glucose 128 H 123 H Calcium 8.2 L Phosphorus Magnesium Total Creatine Kinase CK-MB (CK-2) Rel Index Troponin T C-Reactive Protein Total Protein Albumin LDL Cholesterol Direct Urine WBC (Auto) Crossmatch 04/19/22 04/19/22 04/19/22 04:08 04:08 08:50 WBC 16.8 H RBC 3.18 L Hgb 9.8 L Hct 30.1 L MCV 95 H MCH MCHC RDW Plt Count Lymph % (Auto) [place] % (Auto) Lymph # (Auto) [place] # (Auto) Seg Neutrophils % Seg Neuts % (Manual) Lymphocytes % (Manual) Seg Neutrophils # Seg Neutrophils # Man Lymphocytes # (Manual) PT INR ABG pH ABG pO2 56.0 L ABG HCO3 47.1 H ABG O2 Saturation 93.3 L ABG Base Excess 20.1 H ABG Hemoglobin 8.0 L Oxyhemoglobin 91.8 L Sodium Potassium Chloride 96.2 L Carbon Dioxide 40 H BUN 24 H Creatinine < 0.2 L Glucose 125 H POC Glucose Calcium 8.3 L Phosphorus Magnesium Total Creatine Kinase CK-MB (CK-2) Rel Index Troponin T C-Reactive Protein Total Protein Albumin LDL Cholesterol Direct Urine WBC (Auto) Crossmatch 04/19/22 04/20/22 04/20/22 12:02 00:40 04:49 WBC 14.7 H RBC 3.36 L Hgb 10.3 L Hct 32.0 L MCV 95 H MCH MCHC RDW Plt Count Lymph % (Auto) [place] % (Auto) Lymph # (Auto) [place] # (Auto) Seg Neutrophils % Seg Neuts % (Manual) Lymphocytes % (Manual) Seg Neutrophils # Seg Neutrophils # Man Lymphocytes # (Manual) PT INR ABG pH ABG pO2 ABG HCO3 ABG O2 Saturation ABG Base Excess ABG Hemoglobin Oxyhemoglobin Sodium Potassium Chloride Carbon Dioxide BUN Creatinine Glucose POC Glucose 124 H 140 H Calcium Phosphorus Magnesium Total Creatine Kinase CK-MB (CK-2) Rel Index Troponin T C-Reactive Protein Total Protein Albumin LDL Cholesterol Direct Urine WBC (Auto) Crossmatch 04/20/22 04/20/22 04/21/22 05:36 11:40 04:05 WBC RBC Hgb Hct MCV MCH MCHC RDW Plt Count Lymph % (Auto) [place] % (Auto) Lymph # (Auto) [place] # (Auto) Seg Neutrophils % Seg Neuts % (Manual) Lymphocytes % (Manual) Seg Neutrophils # Seg Neutrophils # Man Lymphocytes # (Manual) PT INR ABG pH ABG pO2 ABG HCO3 ABG O2 Saturation ABG Base Excess ABG Hemoglobin Oxyhemoglobin Sodium Potassium Chloride 93.4 L Carbon Dioxide 40 H BUN 25 H Creatinine < 0.2 L Glucose 122 H POC Glucose 125 H 128 H Calcium Phosphorus Magnesium Total Creatine Kinase CK-MB (CK-2) Rel Index Troponin T C-Reactive Protein Total Protein Albumin LDL Cholesterol Direct Urine WBC (Auto) Crossmatch 04/21/22 04/22/22 04/22/22 10:31 05:03 05:03 WBC 12.6 H 12.7 H RBC 2.83 L 2.96 L Hgb 8.6 L 9.0 L Hct 26.9 L 28.0 L MCV 95 H 95 H MCH MCHC RDW Plt Count Lymph % (Auto) [place] % (Auto) Lymph # (Auto) [place] # (Auto) Seg Neutrophils % Seg Neuts % (Manual) Lymphocytes % (Manual) Seg Neutrophils # Seg Neutrophils # Man Lymphocytes # (Manual) PT INR ABG pH ABG pO2 ABG HCO3 ABG O2 Saturation ABG Base Excess ABG Hemoglobin Oxyhemoglobin Sodium Potassium Chloride 93.9 L Carbon Dioxide 43 H* BUN 23 H Creatinine < 0.2 L Glucose 137 H POC Glucose Calcium Phosphorus Magnesium Total Creatine Kinase CK-MB (CK-2) Rel Index Troponin T C-Reactive Protein Total Protein Albumin LDL Cholesterol Direct Urine WBC (Auto) Crossmatch 04/22/22 04/23/22 04/24/22 08:34 09:40 04:29 WBC 14.4 H RBC 2.74 L Hgb 8.4 L Hct 25.7 L MCV MCH MCHC RDW Plt Count Lymph % (Auto) [place] % (Auto) Lymph # (Auto) [place] # (Auto) Seg Neutrophils % Seg Neuts % (Manual) Lymphocytes % (Manual) Seg Neutrophils # Seg Neutrophils # Man Lymphocytes # (Manual) PT INR ABG pH ABG pO2 54.1 L 56.8 L ABG HCO3 48.5 H 49.0 H ABG O2 Saturation 92.1 L 90.9 L ABG Base Excess 20.9 H 20.8 H ABG Hemoglobin 9.0 L 8.4 L Oxyhemoglobin 90.6 L 89.5 L Sodium Potassium Chloride Carbon Dioxide BUN Creatinine Glucose POC Glucose Calcium Phosphorus Magnesium Total Creatine Kinase CK-MB (CK-2) Rel Index Troponin T C-Reactive Protein Total Protein Albumin LDL Cholesterol Direct Urine WBC (Auto) Crossmatch 04/24/22 04/25/22 04/26/22 04:29 09:00 04:22 WBC RBC 2.88 L Hgb 8.9 L Hct 26.8 L MCV MCH MCHC RDW Plt Count Lymph % (Auto) [place] % (Auto) Lymph # (Auto) [place] # (Auto) Seg Neutrophils % Seg Neuts % (Manual) Lymphocytes % (Manual) Seg Neutrophils # Seg Neutrophils # Man Lymphocytes # (Manual) PT INR ABG pH 7.457 H ABG pO2 66.7 L ABG HCO3 42.6 H ABG O2 Saturation ABG Base Excess 15.3 H ABG Hemoglobin 8.8 L Oxyhemoglobin 94.1 L Sodium Potassium Chloride 90.7 L Carbon Dioxide 40 H BUN Creatinine < 0.2 L Glucose 133 H POC Glucose Calcium Phosphorus Magnesium Total Creatine Kinase CK-MB (CK-2) Rel Index Troponin T C-Reactive Protein Total Protein Albumin LDL Cholesterol Direct Urine WBC (Auto) Crossmatch 04/26/22 04/29/22 04/29/22 04:22 04:18 04:18 WBC 13.5 H RBC 2.96 L Hgb 8.9 L Hct 27.7 L MCV MCH MCHC RDW Plt Count Lymph % (Auto) [place] % (Auto) Lymph # (Auto) [place] # (Auto) Seg Neutrophils % Seg Neuts % (Manual) Lymphocytes % (Manual) Seg Neutrophils # Seg Neutrophils # Man Lymphocytes # (Manual) PT INR ABG pH ABG pO2 ABG HCO3 ABG O2 Saturation ABG Base Excess ABG Hemoglobin Oxyhemoglobin Sodium Potassium Chloride 93.2 L 95.2 L Carbon Dioxide 37 H 38 H BUN Creatinine < 0.2 L < 0.2 L Glucose 114 H 116 H POC Glucose Calcium Phosphorus Magnesium Total Creatine Kinase CK-MB (CK-2) Rel Index Troponin T C-Reactive Protein Total Protein Albumin LDL Cholesterol Direct Urine WBC (Auto) Crossmatch 05/02/22 05/03/2222 04:29 04:02 04:02 WBC 12.9 H 12.3 H RBC 2.82 L 2.83 L Hgb 8.4 L 8.4 L Hct 26.2 L 26.0 L MCV MCH MCHC RDW Plt Count Lymph % (Auto) [place] % (Auto) Lymph # (Auto) [place] # (Auto) Seg Neutrophils % Seg Neuts % (Manual) Lymphocytes % (Manual) Seg Neutrophils # Seg Neutrophils # Man Lymphocytes # (Manual) PT INR ABG pH ABG pO2 ABG HCO3 ABG O2 Saturation ABG Base Excess ABG Hemoglobin Oxyhemoglobin Sodium 134 L Potassium Chloride 90.5 L Carbon Dioxide 38 H BUN 21 H Creatinine < 0.2 L Glucose 126 H POC Glucose Calcium Phosphorus Magnesium Total Creatine Kinase CK-MB (CK-2) Rel Index Troponin T C-Reactive Protein Total Protein Albumin LDL Cholesterol Direct Urine WBC (Auto) Crossmatch 05/03/22 05/03/22 05/04/22 12:02 17:42 09:36 WBC RBC Hgb Hct MCV MCH MCHC RDW Plt Count Lymph % (Auto) [place] % (Auto) Lymph # (Auto) [place] # (Auto) Seg Neutrophils % Seg Neuts % (Manual) Lymphocytes % (Manual) Seg Neutrophils # Seg Neutrophils # Man Lymphocytes # (Manual) PT INR ABG pH ABG pO2 55.4 L ABG HCO3 43.7 H ABG O2 Saturation 87.4 L ABG Base Excess 16.1 H ABG Hemoglobin 9.1 L Oxyhemoglobin 85.7 L Sodium Potassium Chloride Carbon Dioxide BUN Creatinine Glucose POC Glucose 139 H 131 H Calcium Phosphorus Magnesium Total Creatine Kinase CK-MB (CK-2) Rel Index Troponin T C-Reactive Protein Total Protein Albumin LDL Cholesterol Direct Urine WBC (Auto) Crossmatch 05/04/22 05/04/22 05/05/22 17:08 23:10 04:23 WBC 14.4 H RBC 2.75 L Hgb 8.2 L Hct 25.2 L MCV MCH MCHC RDW Plt Count Lymph % (Auto) [place] % (Auto) Lymph # (Auto) [place] # (Auto) Seg Neutrophils % Seg Neuts % (Manual) Lymphocytes % (Manual) Seg Neutrophils # Seg Neutrophils # Man Lymphocytes # (Manual) PT INR ABG pH ABG pO2 ABG HCO3 ABG O2 Saturation ABG Base Excess ABG Hemoglobin Oxyhemoglobin Sodium Potassium Chloride Carbon Dioxide BUN Creatinine Glucose POC Glucose 124 H 115 H Calcium Phosphorus Magnesium Total Creatine Kinase CK-MB (CK-2) Rel Index Troponin T C-Reactive Protein Total Protein Albumin LDL Cholesterol Direct Urine WBC (Auto) Crossmatch 05/05/22 05/05/22 05/06/22 04:23 21:39 05:13 WBC RBC Hgb Hct MCV MCH MCHC RDW Plt Count Lymph % (Auto) [place] % (Auto) Lymph # (Auto) [place] # (Auto) Seg Neutrophils % Seg Neuts % (Manual) Lymphocytes % (Manual) Seg Neutrophils # Seg Neutrophils # Man Lymphocytes # (Manual) PT INR ABG pH ABG pO2 ABG HCO3 ABG O2 Saturation ABG Base Excess ABG Hemoglobin Oxyhemoglobin Sodium Potassium Chloride 91.3 L Carbon Dioxide 38 H BUN 23 H Creatinine < 0.2 L Glucose 128 H POC Glucose 141 H 136 H Calcium Phosphorus Magnesium Total Creatine Kinase CK-MB (CK-2) Rel Index Troponin T C-Reactive Protein Total Protein Albumin LDL Cholesterol Direct Urine WBC (Auto) Crossmatch 05/07/22 05/07/22 05/08/22 05:29 22:15 05:48 WBC RBC Hgb Hct MCV MCH MCHC RDW Plt Count Lymph % (Auto) [place] % (Auto) Lymph # (Auto) [place] # (Auto) Seg Neutrophils % Seg Neuts % (Manual) Lymphocytes % (Manual) Seg Neutrophils # Seg Neutrophils # Man Lymphocytes # (Manual) PT INR ABG pH ABG pO2 ABG HCO3 ABG O2 Saturation ABG Base Excess ABG Hemoglobin Oxyhemoglobin Sodium Potassium Chloride Carbon Dioxide BUN Creatinine Glucose POC Glucose 125 H 142 H 122 H Calcium Phosphorus Magnesium Total Creatine Kinase CK-MB (CK-2) Rel Index Troponin T C-Reactive Protein Total Protein Albumin LDL Cholesterol Direct Urine WBC (Auto) Crossmatch 05/08/22 05/08/22 05/09/22 14:04 21:48 15:15 WBC RBC 2.61 L Hgb 7.7 L Hct 23.2 L MCV MCH MCHC RDW Plt Count Lymph % (Auto) 8.1 L [place] % (Auto) Lymph # (Auto) 0.9 L [place] # (Auto) Seg Neutrophils % 86.1 H Seg Neuts % (Manual) Lymphocytes % (Manual) Seg Neutrophils # 9.2 H Seg Neutrophils # Man Lymphocytes # (Manual) PT INR ABG pH ABG pO2 ABG HCO3 ABG O2 Saturation ABG Base Excess ABG Hemoglobin Oxyhemoglobin Sodium Potassium Chloride Carbon Dioxide BUN Creatinine Glucose POC Glucose 112 H 107 H Calcium Phosphorus Magnesium Total Creatine Kinase CK-MB (CK-2) Rel Index Troponin T C-Reactive Protein Total Protein Albumin LDL Cholesterol Direct Urine WBC (Auto) Crossmatch 05/09/22 05/09/22 05/09/22 15:15 15:39 21:15 WBC RBC Hgb Hct MCV MCH MCHC RDW Plt Count Lymph % (Auto) [place] % (Auto) Lymph # (Auto) [place] # (Auto) Seg Neutrophils % Seg Neuts % (Manual) Lymphocytes % (Manual) Seg Neutrophils # Seg Neutrophils # Man Lymphocytes # (Manual) PT INR ABG pH ABG pO2 ABG HCO3 ABG O2 Saturation ABG Base Excess ABG Hemoglobin Oxyhemoglobin Sodium Potassium Chloride 92.9 L Carbon Dioxide 40 H BUN Creatinine < 0.2 L Glucose 141 H POC Glucose 118 H 112 H Calcium Phosphorus Magnesium Total Creatine Kinase CK-MB (CK-2) Rel Index Troponin T C-Reactive Protein Total Protein Albumin LDL Cholesterol Direct Urine WBC (Auto) Crossmatch 05/10/22 05/12/22 05/13/22 15:14 00:25 04:02 WBC 13.3 H RBC 3.14 L Hgb 8.7 L Hct 28.0 L MCV MCH MCHC 31 L RDW Plt Count Lymph % (Auto) [place] % (Auto) Lymph # (Auto) [place] # (Auto) Seg Neutrophils % Seg Neuts % (Manual) Lymphocytes % (Manual) Seg Neutrophils # Seg Neutrophils # Man Lymphocytes # (Manual) PT INR ABG pH ABG pO2 ABG HCO3 ABG O2 Saturation ABG Base Excess ABG Hemoglobin Oxyhemoglobin Sodium Potassium Chloride Carbon Dioxide BUN Creatinine Glucose POC Glucose 113 H 158 H Calcium Phosphorus Magnesium Total Creatine Kinase CK-MB (CK-2) Rel Index Troponin T C-Reactive Protein Total Protein Albumin LDL Cholesterol Direct Urine WBC (Auto) Crossmatch 05/13/22 05/13/22 05/13/22 04:02 06:32 13:09 WBC RBC Hgb Hct MCV MCH MCHC RDW Plt Count Lymph % (Auto) [place] % (Auto) Lymph # (Auto) [place] # (Auto) Seg Neutrophils % Seg Neuts % (Manual) Lymphocytes % (Manual) Seg Neutrophils # Seg Neutrophils # Man Lymphocytes # (Manual) PT INR ABG pH ABG pO2 ABG HCO3 ABG O2 Saturation ABG Base Excess ABG Hemoglobin Oxyhemoglobin Sodium 135 L Potassium Chloride 91.1 L Carbon Dioxide 40 H BUN 23 H Creatinine < 0.2 L Glucose 139 H POC Glucose 129 H 117 H Calcium Phosphorus Magnesium Total Creatine Kinase CK-MB (CK-2) Rel Index Troponin T C-Reactive Protein Total Protein Albumin LDL Cholesterol Direct Urine WBC (Auto) Crossmatch 05/13/22 05/14/22 05/14/22 21:28 05:44 07:35 WBC RBC Hgb Hct MCV MCH MCHC RDW Plt Count Lymph % (Auto) [place] % (Auto) Lymph # (Auto) [place] # (Auto) Seg Neutrophils % Seg Neuts % (Manual) Lymphocytes % (Manual) Seg Neutrophils # Seg Neutrophils # Man Lymphocytes # (Manual) PT INR ABG pH ABG pO2 ABG HCO3 ABG O2 Saturation ABG Base Excess ABG Hemoglobin Oxyhemoglobin Sodium Potassium Chloride Carbon Dioxide BUN Creatinine Glucose POC Glucose 109 H 130 H 125 H Calcium Phosphorus Magnesium Total Creatine Kinase CK-MB (CK-2) Rel Index Troponin T C-Reactive Protein Total Protein Albumin LDL Cholesterol Direct Urine WBC (Auto) Crossmatch 05/14/22 05/14/22 05/15/22 16:26 23:44 10:44 WBC 13.9 H RBC 2.71 L Hgb 7.5 L Hct 23.5 L MCV MCH MCHC RDW 15.9 H Plt Count Lymph % (Auto) [place] % (Auto) Lymph # (Auto) [place] # (Auto) Seg Neutrophils % Seg Neuts % (Manual) Lymphocytes % (Manual) Seg Neutrophils # Seg Neutrophils # Man Lymphocytes # (Manual) PT INR ABG pH ABG pO2 ABG HCO3 ABG O2 Saturation ABG Base Excess ABG Hemoglobin Oxyhemoglobin Sodium Potassium Chloride Carbon Dioxide BUN Creatinine Glucose POC Glucose 112 H 189 H Calcium Phosphorus Magnesium Total Creatine Kinase CK-MB (CK-2) Rel Index Troponin T C-Reactive Protein Total Protein Albumin LDL Cholesterol Direct Urine WBC (Auto) Crossmatch 05/15/22 05/16/22 05/16/22 10:44 14:50 21:36 WBC RBC Hgb Hct MCV MCH MCHC RDW Plt Count Lymph % (Auto) [place] % (Auto) Lymph # (Auto) [place] # (Auto) Seg Neutrophils % Seg Neuts % (Manual) Lymphocytes % (Manual) Seg Neutrophils # Seg Neutrophils # Man Lymphocytes # (Manual) PT INR ABG pH ABG pO2 ABG HCO3 ABG O2 Saturation ABG Base Excess ABG Hemoglobin Oxyhemoglobin Sodium 135 L Potassium 3.3 L D Chloride 91.5 L Carbon Dioxide 33 H D BUN 21 H Creatinine < 0.2 L Glucose 118 H POC Glucose 133 H 123 H Calcium 7.9 L Phosphorus Magnesium Total Creatine Kinase CK-MB (CK-2) Rel Index Troponin T C-Reactive Protein Total Protein Albumin LDL Cholesterol Direct Urine WBC (Auto) Crossmatch 05/17/22 05/17/22 05/17/22 03:41 03:41 05:51 WBC 16.2 H RBC 2.53 L Hgb 7.0 L Hct 21.5 L MCV MCH MCHC RDW 16.2 H Plt Count Lymph % (Auto) [place] % (Auto) Lymph # (Auto) [place] # (Auto) Seg Neutrophils % Seg Neuts % (Manual) 96.0 H Lymphocytes % (Manual) 1.0 L Seg Neutrophils # Seg Neutrophils # Man 15.6 H Lymphocytes # (Manual) 0.2 L PT INR ABG pH ABG pO2 ABG HCO3 ABG O2 Saturation ABG Base Excess ABG Hemoglobin Oxyhemoglobin Sodium 132 L Potassium Chloride 95.0 L Carbon Dioxide BUN 22 H Creatinine < 0.2 L Glucose 122 H POC Glucose 123 H Calcium Phosphorus Magnesium Total Creatine Kinase CK-MB (CK-2) Rel Index Troponin T C-Reactive Protein 31.20 H Total Protein Albumin LDL Cholesterol Direct Urine WBC (Auto) Crossmatch 05/17/22 05/17/22 05/18/22 07:53 21:03 05:41 WBC 15.0 H RBC 2.58 L Hgb 7.1 L Hct 22.3 L MCV MCH MCHC RDW 16.1 H Plt Count Lymph % (Auto) [place] % (Auto) Lymph # (Auto) [place] # (Auto) Seg Neutrophils % Seg Neuts % (Manual) Lymphocytes % (Manual) Seg Neutrophils # Seg Neutrophils # Man Lymphocytes # (Manual) PT INR ABG pH ABG pO2 ABG HCO3 ABG O2 Saturation ABG Base Excess ABG Hemoglobin Oxyhemoglobin Sodium Potassium Chloride Carbon Dioxide BUN Creatinine Glucose POC Glucose 106 H 123 H Calcium Phosphorus Magnesium Total Creatine Kinase CK-MB (CK-2) Rel Index Troponin T C-Reactive Protein Total Protein Albumin LDL Cholesterol Direct Urine WBC (Auto) Crossmatch 05/18/22 05/18/22 05/18/22 05:41 13:56 21:08 WBC RBC Hgb Hct MCV MCH MCHC RDW Plt Count Lymph % (Auto) [place] % (Auto) Lymph # (Auto) [place] # (Auto) Seg Neutrophils % Seg Neuts % (Manual) Lymphocytes % (Manual) Seg Neutrophils # Seg Neutrophils # Man Lymphocytes # (Manual) PT INR ABG pH ABG pO2 ABG HCO3 ABG O2 Saturation ABG Base Excess ABG Hemoglobin Oxyhemoglobin Sodium Potassium Chloride 97.9 L Carbon Dioxide BUN 23 H Creatinine < 0.2 L Glucose 128 H POC Glucose 137 H Calcium Phosphorus Magnesium Total Creatine Kinase CK-MB (CK-2) Rel Index Troponin T C-Reactive Protein Total Protein Albumin LDL Cholesterol Direct Urine WBC (Auto) Crossmatch See Detail 05/18/22 05/19/22 05/20/22 23:21 06:10 00:43 WBC 13.5 H RBC 2.53 L Hgb 7.2 L Hct 21.5 L MCV MCH MCHC RDW 16.4 H Plt Count Lymph % (Auto) [place] % (Auto) Lymph # (Auto) [place] # (Auto) Seg Neutrophils % Seg Neuts % (Manual) Lymphocytes % (Manual) Seg Neutrophils # Seg Neutrophils # Man Lymphocytes # (Manual) PT INR ABG pH ABG pO2 70.5 L ABG HCO3 30.3 H ABG O2 Saturation ABG Base Excess 4.9 H ABG Hemoglobin 5.9 L Oxyhemoglobin Sodium Potassium Chloride Carbon Dioxide BUN Creatinine Glucose POC Glucose 151 H Calcium Phosphorus Magnesium Total Creatine Kinase CK-MB (CK-2) Rel Index Troponin T C-Reactive Protein Total Protein Albumin LDL Cholesterol Direct Urine WBC (Auto) Crossmatch 05/20/22 05/20/22 05/20/22 04:40 04:40 07:08 WBC 13.3 H RBC 2.57 L Hgb 7.1 L Hct 22.2 L MCV MCH MCHC RDW 16.3 H Plt Count Lymph % (Auto) [place] % (Auto) Lymph # (Auto) [place] # (Auto) Seg Neutrophils % Seg Neuts % (Manual) Lymphocytes % (Manual) Seg Neutrophils # Seg Neutrophils # Man Lymphocytes # (Manual) PT INR ABG pH ABG pO2 ABG HCO3 ABG O2 Saturation ABG Base Excess ABG Hemoglobin Oxyhemoglobin Sodium 134 L Potassium Chloride Carbon Dioxide BUN Creatinine < 0.2 L Glucose 170 H POC Glucose 174 H Calcium 8.1 L Phosphorus Magnesium Total Creatine Kinase CK-MB (CK-2) Rel Index Troponin T C-Reactive Protein Total Protein Albumin LDL Cholesterol Direct Urine WBC (Auto) Crossmatch 05/20/22 05/21/22 05/21/22 15:08 05:13 22:07 WBC RBC Hgb Hct MCV MCH MCHC RDW Plt Count Lymph % (Auto) [place] % (Auto) Lymph # (Auto) [place] # (Auto) Seg Neutrophils % Seg Neuts % (Manual) Lymphocytes % (Manual) Seg Neutrophils # Seg Neutrophils # Man Lymphocytes # (Manual) PT INR ABG pH ABG pO2 ABG HCO3 ABG O2 Saturation ABG Base Excess ABG Hemoglobin Oxyhemoglobin Sodium Potassium Chloride Carbon Dioxide BUN Creatinine Glucose POC Glucose 114 H 149 H 113 H Calcium Phosphorus Magnesium Total Creatine Kinase CK-MB (CK-2) Rel Index Troponin T C-Reactive Protein Total Protein Albumin LDL Cholesterol Direct Urine WBC (Auto) Crossmatch 05/22/22 05/22/22 05/22/22 05:49 05:49 07:43 WBC RBC 3.05 L Hgb 8.6 L Hct 26.2 L MCV MCH MCHC RDW 16.8 H Plt Count Lymph % (Auto) [place] % (Auto) Lymph # (Auto) [place] # (Auto) Seg Neutrophils % Seg Neuts % (Manual) Lymphocytes % (Manual) Seg Neutrophils # Seg Neutrophils # Man Lymphocytes # (Manual) PT INR ABG pH ABG pO2 ABG HCO3 ABG O2 Saturation ABG Base Excess ABG Hemoglobin Oxyhemoglobin Sodium 131 L Potassium Chloride 93.3 L Carbon Dioxide 32 H BUN Creatinine < 0.2 L Glucose 148 H POC Glucose 145 H Calcium 8.2 L Phosphorus Magnesium Total Creatine Kinase CK-MB (CK-2) Rel Index Troponin T C-Reactive Protein Total Protein Albumin LDL Cholesterol Direct Urine WBC (Auto) Crossmatch 05/22/22 05/22/22 05/23/22 14:09 22:06 07:57 WBC RBC Hgb Hct MCV MCH MCHC RDW Plt Count Lymph % (Auto) [place] % (Auto) Lymph # (Auto) [place] # (Auto) Seg Neutrophils % Seg Neuts % (Manual) Lymphocytes % (Manual) Seg Neutrophils # Seg Neutrophils # Man Lymphocytes # (Manual) PT INR ABG pH ABG pO2 ABG HCO3 ABG O2 Saturation ABG Base Excess ABG Hemoglobin Oxyhemoglobin Sodium Potassium Chloride Carbon Dioxide BUN Creatinine Glucose POC Glucose 136 H 129 H 137 H Calcium Phosphorus Magnesium Total Creatine Kinase CK-MB (CK-2) Rel Index Troponin T C-Reactive Protein Total Protein Albumin LDL Cholesterol Direct Urine WBC (Auto) Crossmatch 05/23/22 05/23/22 05/24/22 14:13 21:29 04:22 WBC RBC 2.89 L Hgb 7.9 L Hct 24.9 L MCV MCH MCHC RDW 17.0 H Plt Count Lymph % (Auto) [place] % (Auto) Lymph # (Auto) [place] # (Auto) Seg Neutrophils % Seg Neuts % (Manual) Lymphocytes % (Manual) Seg Neutrophils # Seg Neutrophils # Man Lymphocytes # (Manual) PT INR ABG pH ABG pO2 ABG HCO3 ABG O2 Saturation ABG Base Excess ABG Hemoglobin Oxyhemoglobin Sodium Potassium Chloride Carbon Dioxide BUN Creatinine Glucose POC Glucose 135 H 132 H Calcium Phosphorus Magnesium Total Creatine Kinase CK-MB (CK-2) Rel Index Troponin T C-Reactive Protein Total Protein Albumin LDL Cholesterol Direct Urine WBC (Auto) Crossmatch 05/24/22 05/24/22 05/24/22 04:22 06:41 12:12 WBC RBC Hgb Hct MCV MCH MCHC RDW Plt Count Lymph % (Auto) [place] % (Auto) Lymph # (Auto) [place] # (Auto) Seg Neutrophils % Seg Neuts % (Manual) Lymphocytes % (Manual) Seg Neutrophils # Seg Neutrophils # Man Lymphocytes # (Manual) PT INR ABG pH ABG pO2 ABG HCO3 ABG O2 Saturation ABG Base Excess ABG Hemoglobin Oxyhemoglobin Sodium 133 L Potassium 5.1 H Chloride 93.7 L Carbon Dioxide 33 H BUN Creatinine < 0.2 L Glucose 144 H POC Glucose 140 H 130 H Calcium 8.3 L Phosphorus Magnesium Total Creatine Kinase CK-MB (CK-2) Rel Index Troponin T C-Reactive Protein Total Protein Albumin LDL Cholesterol Direct Urine WBC (Auto) Crossmatch 05/24/22 05/25/22 05/25/22 21:24 00:44 05:41 WBC RBC Hgb Hct MCV MCH MCHC RDW Plt Count Lymph % (Auto) [place] % (Auto) Lymph # (Auto) [place] # (Auto) Seg Neutrophils % Seg Neuts % (Manual) Lymphocytes % (Manual) Seg Neutrophils # Seg Neutrophils # Man Lymphocytes # (Manual) PT INR ABG pH ABG pO2 ABG HCO3 ABG O2 Saturation ABG Base Excess ABG Hemoglobin Oxyhemoglobin Sodium Potassium Chloride 94.8 L Carbon Dioxide 35 H BUN Creatinine < 0.2 L Glucose 146 H POC Glucose 141 H 142 H Calcium Phosphorus Magnesium Total Creatine Kinase CK-MB (CK-2) Rel Index Troponin T C-Reactive Protein Total Protein Albumin LDL Cholesterol Direct Urine WBC (Auto) Crossmatch 05/25/22 05/25/22 05/26/22 13:51 14:46 00:31 WBC RBC 2.87 L 2.82 L Hgb 7.8 L 7.6 L Hct 24.4 L 23.9 L MCV MCH 27 L 27 L MCHC RDW 17.1 H 17.4 H Plt Count Lymph % (Auto) 11.9 L [place] % (Auto) Lymph # (Auto) [place] # (Auto) Seg Neutrophils % 81.2 H Seg Neuts % (Manual) Lymphocytes % (Manual) Seg Neutrophils # 8.4 H Seg Neutrophils # Man Lymphocytes # (Manual) PT INR ABG pH ABG pO2 ABG HCO3 ABG O2 Saturation ABG Base Excess ABG Hemoglobin Oxyhemoglobin Sodium Potassium Chloride Carbon Dioxide BUN Creatinine Glucose POC Glucose 139 H Calcium Phosphorus Magnesium Total Creatine Kinase CK-MB (CK-2) Rel Index Troponin T C-Reactive Protein Total Protein Albumin LDL Cholesterol Direct Urine WBC (Auto) Crossmatch 05/26/22 05/26/22 00:31 05:02 WBC RBC Hgb Hct MCV MCH MCHC RDW Plt Count Lymph % (Auto) [place] % (Auto) Lymph # (Auto) [place] # (Auto) Seg Neutrophils % Seg Neuts % (Manual) Lymphocytes % (Manual) Seg Neutrophils # Seg Neutrophils # Man Lymphocytes # (Manual) PT INR ABG pH ABG pO2 ABG HCO3 ABG O2 Saturation ABG Base Excess ABG Hemoglobin Oxyhemoglobin Sodium 134 L Potassium Chloride 92.4 L Carbon Dioxide 37 H BUN Creatinine < 0.2 L Glucose 140 H POC Glucose 111 H Calcium 8.2 L Phosphorus Magnesium Total Creatine Kinase CK-MB (CK-2) Rel Index Troponin T C-Reactive Protein Total Protein Albumin LDL Cholesterol Direct Urine WBC (Auto) Crossmatch Allied health notes reviewed: RT
[2022-05-26] MEDS: POLYETHYLENE GLYCOL 3350 17 GM POWDER FEEDTUBE SCH (15:42)
[2022-05-26] MEDS: DOCUSATE SODIUM 100 MG/10 ML ORAL LIQD FEEDTUBE SCH ×2 (15:42→22:00)
--- NOTE | 2022-05-26 18:15 | Progress Note ---
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 S/P debridement on 05/19/2022. #Hospital-acquired pneumonia: previously completed abx for Pseudomonas, Enterobacter. #Acute v/s now chronic respiratory failure: on the vent. S/P trach, PEG #ALS: Was on home hospice. #Bacillus bacteremia: likely contaminant. Recs: -Discussed with pharmacy to start Avycaz given CRE in cultures along with fevers. -Would recommend 10 days Avycaz. Could be discharged with this, case management consult for Avycaz 2.5 g every 8 hours until 06/04/2022 -Okay for midline or PICC line on discharge Sameer Ojeda MD [facility] O: [phone] F: [phone] Subjective Date of service: 05/26/22 Principal diagnosis: Ac and ch hypercapnic and hypoxemic Resp Failure; ALS; HCAP; Sepsis; NSTEMI Interval history: Afebrile now, white count normal. Objective - Exam Narrative Exam: Physical Exam: Constitutional: awake, on the vent, trach + Head, Ears, Nose: Normocephalic, atraumatic. External ears, nose normal Eyes: Conjunctivae/corneas clear. No icterus. No ptosis. Neck: trach + Cardiovascular: S1, S2 + Respiratory: AE fair bilaterally and equal GI: Soft, bowel sounds +, PEG + Musculoskeletal: No pedal edema, no cyanosis. Skin: sacral wound with dressing, not directly examined Hem/Lymphatic: No palpable cervical or supraclavicular nodes. No lymphangitis Psych: no agitation Neurological: awake, on the vent, exam limited - Constitutional Vitals: Vital Signs Temp Pulse Resp BP Pulse Ox 98.6 F 92 H 22 106/74 100 05/26/22 16:00 05/26/22 17:00 05/26/22 17:00 05/26/22 17:00 05/26/22 17:00 Temperature -Last 24 Hours Temperature 98.6 F Temperature 98.8 F Temperature 97.6 F Temperature 98.3 F Temperature 98.5 F Temperature 98.1 F - Labs CBC & Chem 7: 05/26/22 00:31 05/26/22 00:31 Labs: Abnormal lab results 05/26/22 05/26/22 05/26/22 Range/Units 00:31 00:31 05:02 RBC 2.82 L (3.65-5.03) M/mm3 Hgb 7.6 L (11.8-15.2) gm/dl Hct 23.9 L (35.5-45.6) % MCH 27 L (28-32) pg RDW 17.4 H (13.2-15.2) % Sodium 134 L (137-145) mmol/L Chloride 92.4 L (98-107) mmol/L Carbon Dioxide 37 H (22-30) mmol/L Creatinine < 0.2 L (0.8-1.3) mg/dL Glucose 140 H (75-100) mg/dL POC Glucose 111 H (70-105) mg/dL Calcium 8.2 L (8.4-10.2) mg/dL
[2022-05-26] MEDS: SENNOSIDES ORAL LIQD 8.8 MG/5 ML ORAL LIQD FEEDTUBE SCH (22:00)
[2022-05-27] MEDS: METOPROLOL TARTRATE 25 MG TAB FEEDTUBE SCH ×3 (02:29→14:48)
[2022-05-27] MEDS: AVIBACTAM IV SCH ×3 (04:03→17:16)
[2022-05-27] MEDS: CEFTAZIDIME IV SCH ×3 (04:03→17:16)
[2022-05-27] MEDS: SODIUM CHLORIDE 0.9% IV SCH ×3 (04:03→17:16)
[2022-05-27] MEDS: INSULIN LISPRO 100 UNIT/ML SUB-Q SCH ×2 (06:00→14:49)
[2022-05-27] MEDS: HEPARIN 5,000 UNIT/1 ML VIAL SUB-Q SCH ×3 (06:01→23:21)
[2022-05-27] MEDS ORDERED: EPINEPHrine RACEMIC 2.25% 0.5ML NEBU IH ONE (07:37)
[2022-05-27] MEDS: ACETYLCYSTEINE 20% 200 MG/1 ML *FOR INHALATION USE INHALATION SCH ×2 (07:55→21:00)
[2022-05-27] MEDS: ALBUTEROL 2.5 MG/3 ML NEBU IH SCH ×2 (07:56→20:59)
[2022-05-27] MEDS: QUEtiapine 100 MG TAB FEEDTUBE SCH ×2 (10:01→23:22)
[2022-05-27] MEDS: SCOPOLAMINE TRANSDERMAL PATCH 72 HR TD SCH (10:01)
[2022-05-27] MEDS: POLYETHYLENE GLYCOL 3350 17 GM POWDER FEEDTUBE SCH (10:02)
[2022-05-27] MEDS: BACLOFEN 10 MG TAB PO SCH ×3 (10:02→20:03)
[2022-05-27] MEDS: DOCUSATE SODIUM 100 MG/10 ML ORAL LIQD FEEDTUBE SCH ×2 (10:02→23:22)
[2022-05-27] MEDS: FAMOTIDINE 20 MG TAB FEEDTUBE SCH ×2 (10:02→23:22)
--- NOTE | 2022-05-27 10:22 | Progress Note ---
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 Protein calorie malnutrition Acute Bronchopneumonia HCAP Hypotension NSTEMI Hypernatremia Acute Metabolic Encephalopathy H/o Amyotrophic Lateral Sclerosis Nonverbal at Baseline Thrombocytopenia Protein Caloric Malnutrition Constipation - continue Avycaz, de-escalate per ID recommendations (10 days) - PICC line for outpatient AB's - continue wound care per RN/WCN/Surgeon - continue daily SAT and SBT assessment as tolerated while in hospital - continue to optimize nutritional status - discharge planning ongoing concurrently - continue care as below otherwise; - bronchoscopy if develops large volume atelectasis - continue mucomyst nebs for thick tenacious secretions - continue scheduled CPT - continue Seroquel for anxiolysis / delirium - continue bronchodilators with pulmonary hygiene per RT - continue to wean supplemental oxygen for target O2 sat's > 90% acutely - VAP bundle addressed - continue lung protective strategies - wean per pulmonary driven protocols otherwise - continue accuchecks with glycemic control per SSI (While critically ill target blood glucose of 140-180 mg/dL; avoid hypoglycemia) - sedation prn for target RASS 0 to -1 - avoid nephrotoxins, renally dose all medications - continue to avoid benzodiazepine's, reduce the possibility of delirium - AB's per ID rec's - prn analgesia per CPOT score - Maintenance of sleep-wake cycle, avoid delirium - continue enteral nutritional support at goal rate as tolerated - G.I. & VTE prophylaxis - PT/OT/ROM exercises - continue mobility protocols for pressure ulcer prophylaxis - Monitor hemodynamics closely - continue other care per attending / other consultants - discharge planning ongoing concurrently COVID SPECIFIC INTERVENTIONS - test negative .... Re-evaluate in am & prn CONDITION: CRITICAL PROGNOSIS: GUARDED CODE STATUS: FULL CODE The high probability of a clinically significant, sudden or life-threatening deterioration of the [respiratory, cardiovascular & neurologic] system(s) required my full and direct attention, intervention and personal management. The aggregate critical care time was [35] minutes without overlap. Time includes spent on; [x] Data Review and interpretation [x] Patient assessment and monitoring of vital signs [x] Documentation [x] Medication orders and management Subjective Date of service: 05/27/22 Principal diagnosis: Ac and ch hypercapnic and hypoxemic Resp Failure; ALS; HCAP; Sepsis; NSTEMI Interval history: Patient is seen today for: Acute and chronic hypercapnic and hypoxemic Respiratory Failure; ALS; HCAP; Sepsis; NSTEMI; AMS; Hypernatremia; Thrombocytopenia; Protein Caloric Malnutrition; Constipation Seen and examined at bedside; 24hour events reviewed; nursing and respiratory care staff consulted; no adverse overnight events reported to me; resting peacefully in bed; remains on MVS; son and visiting; denies acute chest pain or SOB; AB's transitioned to Avycaz re: CRE; no emesis or overt aspiration Objective Vital Signs - 12hr 05/26/22 05/27/22 05/27/22 23:00 00:00 00:50 Temperature 97.9 F Pulse Rate 112 H 101 H Pulse Rate [ Bilateral Throughout] Pulse Rate [ 105 H From Monitor] Respiratory 16 22 Rate Respiratory Rate [Bilateral Throughout] Blood Pressure 105/66 103/66 O2 Sat by Pulse 100 99 Oximetry O2 Sat by Pulse 100 Oximetry [ Assessment] 05/27/22 05/27/22 05/27/22 01:00 02:00 02:29 Temperature Pulse Rate 112 H 104 H 105 H Pulse Rate [ Bilateral Throughout] Pulse Rate [ From Monitor] Respiratory 14 15 Rate Respiratory Rate [Bilateral Throughout] Blood Pressure 105/64 101/67 106/59 O2 Sat by Pulse 100 Oximetry O2 Sat by Pulse Oximetry [ Assessment] 05/27/22 05/27/22 05/27/22 03:00 04:00 04:05 Temperature 97.6 F Pulse Rate 102 H 102 H 105 H Pulse Rate [ Bilateral Throughout] Pulse Rate [ 105 H From Monitor] Respiratory 16 15 Rate Respiratory Rate [Bilateral Throughout] Blood Pressure 101/67 89/58 106/59 O2 Sat by Pulse 98 97 98 Oximetry O2 Sat by Pulse Oximetry [ Assessment] 05/27/22 05/27/22 05/27/22 05:00 06:00 06:02 Temperature Pulse Rate 89 96 H 98 H Pulse Rate [ Bilateral Throughout] Pulse Rate [ From Monitor] Respiratory 18 19 Rate Respiratory Rate [Bilateral Throughout] Blood Pressure 98/58 106/67 106/67 O2 Sat by Pulse 98 Oximetry O2 Sat by Pulse Oximetry [ Assessment] 05/27/22 05/27/22 05/27/22 07:00 07:10 07:41 Temperature 99.5 F Pulse Rate 100 H 105 H Pulse Rate [ Bilateral Throughout] Pulse Rate [ From Monitor] Respiratory 14 Rate Respiratory Rate [Bilateral Throughout] Blood Pressure 99/68 99/68 O2 Sat by Pulse 96 92 Oximetry O2 Sat by Pulse Oximetry [ Assessment] 05/27/22 05/27/22 05/27/22 07:53 08:00 09:00 Temperature Pulse Rate 104 H 99 H Pulse Rate [ 110 H Bilateral Throughout] Pulse Rate [ From Monitor] Respiratory 15 25 H Rate Respiratory 22 Rate [Bilateral Throughout] Blood Pressure 98/59 107/63 O2 Sat by Pulse 93 98 Oximetry O2 Sat by Pulse Oximetry [ Assessment] Constitutional: no acute distress, alert, other (resting in bed with normal respiratory effort at rest) Eyes: non-icteric ENT: oropharynx moist, other (+ midline tracheostomy to home vent) Neck: supple, no lymphadenopathy, no JVD Effort: mildly labored Ascultation: Bilateral: diminished breath sounds (bases) Percussion: Bilateral: not dull Cardiovascular: regular rate and rhythm, other (S1,S2) Gastrointestinal: normoactive bowel sounds, soft, non-tender, non-distended Integumentary: normal, decubitus ulcer (see wound care pictures- wound vac) Extremities: no cyanosis, no edema, pink and warm, pulses normal Neurologic: pupils equal and round, other (functional quadriplegia) Psychiatric: mood appropriate, affect normal CBC and BMP: 05/26/22 00:31 05/26/22 00:31 ABG, PT/INR, D-dimer: ABG ABG pH 7.385 pH Units (7.350-7.450) 05/19/22 06:10 ABG pCO2 51.9 mm Hg 05/19/22 06:10 ABG pO2 70.5 mm Hg (80.0-90.0) L 05/19/22 06:10 ABG O2 Saturation 97.6 % (95.0-99.0) 05/19/22 06:10 PT/INR, D-dimer PT 13.6 Sec. (12.2-14.9) 04/13/22 04:30 INR 0.94 (0.87-1.13) 04/13/22 04:30 Abnormal lab findings: Abnormal Labs 04/02/22 04/02/22 04/02/22 19:39 19:39 19:39 WBC 14.3 H RBC Hgb Hct MCV 96 H MCH MCHC RDW Plt Count 104 L Lymph % (Auto) [place] % (Auto) Lymph # (Auto) [place] # (Auto) Seg Neutrophils % Seg Neuts % (Manual) 94.0 H Lymphocytes % (Manual) 1.0 L Seg Neutrophils # Seg Neutrophils # Man 13.4 H Lymphocytes # (Manual) 0.1 L PT 15.9 H INR 1.14 H ABG pH ABG pO2 ABG HCO3 ABG O2 Saturation ABG Base Excess ABG Hemoglobin Oxyhemoglobin Sodium 151 H Potassium Chloride Carbon Dioxide BUN Creatinine 0.5 L Glucose POC Glucose Calcium 8.2 L Phosphorus Magnesium 1.60 L Total Creatine Kinase CK-MB (CK-2) Rel Index Troponin T 0.048 H C-Reactive Protein Total Protein 4.6 L Albumin 2.7 L LDL Cholesterol Direct 27 L Urine WBC (Auto) Crossmatch 04/02/22 04/03/22 04/03/22 19:42 05:14 06:30 WBC RBC Hgb Hct MCV MCH MCHC RDW Plt Count Lymph % (Auto) [place] % (Auto) Lymph # (Auto) [place] # (Auto) Seg Neutrophils % Seg Neuts % (Manual) Lymphocytes % (Manual) Seg Neutrophils # Seg Neutrophils # Man Lymphocytes # (Manual) PT INR ABG pH 7.471 H 7.496 H ABG pO2 47.8 L 91.0 H ABG HCO3 30.6 H ABG O2 Saturation 94.4 L ABG Base Excess 6.2 H ABG Hemoglobin 11.0 L 12.8 L Oxyhemoglobin 93.1 L Sodium 149 H Potassium 3.4 L Chloride Carbon Dioxide BUN Creatinine 0.4 L Glucose POC Glucose Calcium Phosphorus Magnesium Total Creatine Kinase CK-MB (CK-2) Rel Index Troponin T C-Reactive Protein Total Protein Albumin LDL Cholesterol Direct Urine WBC (Auto) Crossmatch 04/04/22 04/04/22 04/04/22 04:18 04:18 05:50 WBC 11.8 H RBC Hgb Hct MCV MCH MCHC RDW Plt Count 132 L Lymph % (Auto) [place] % (Auto) Lymph # (Auto) [place] # (Auto) Seg Neutrophils % Seg Neuts % (Manual) Lymphocytes % (Manual) Seg Neutrophils # Seg Neutrophils # Man Lymphocytes # (Manual) PT INR ABG pH 7.517 H ABG pO2 115.5 H ABG HCO3 29.9 H ABG O2 Saturation ABG Base Excess 6.7 H ABG Hemoglobin 12.3 L Oxyhemoglobin Sodium Potassium 3.5 L Chloride Carbon Dioxide 31 H BUN Creatinine 0.3 L Glucose 153 H POC Glucose Calcium Phosphorus 1.40 L Magnesium 1.50 L Total Creatine Kinase CK-MB (CK-2) Rel Index Troponin T C-Reactive Protein 31.60 H Total Protein Albumin LDL Cholesterol Direct Urine WBC (Auto) Crossmatch 04/05/22 04/05/22 04/05/22 02:50 05:25 11:28 WBC RBC Hgb Hct MCV MCH MCHC RDW Plt Count Lymph % (Auto) [place] % (Auto) Lymph # (Auto) [place] # (Auto) Seg Neutrophils % Seg Neuts % (Manual) Lymphocytes % (Manual) Seg Neutrophils # Seg Neutrophils # Man Lymphocytes # (Manual) PT INR ABG pH 7.455 H ABG pO2 50.7 L ABG HCO3 30.5 H ABG O2 Saturation 89.4 L ABG Base Excess 5.9 H ABG Hemoglobin 11.8 L Oxyhemoglobin 88.2 L Sodium Potassium Chloride Carbon Dioxide 32 H BUN Creatinine 0.2 L Glucose 110 H POC Glucose 124 H Calcium 7.9 L Phosphorus Magnesium Total Creatine Kinase CK-MB (CK-2) Rel Index Troponin T C-Reactive Protein Total Protein Albumin LDL Cholesterol Direct Urine WBC (Auto) Crossmatch 04/05/22 04/05/22 04/06/22 17:45 Unknown 04:00 WBC RBC 3.55 L Hgb 11.1 L 11.5 L Hct 33.2 L 35.1 L MCV MCH MCHC RDW Plt Count 113 L 114 L Lymph % (Auto) [place] % (Auto) Lymph # (Auto) [place] # (Auto) Seg Neutrophils % Seg Neuts % (Manual) Lymphocytes % (Manual) Seg Neutrophils # Seg Neutrophils # Man Lymphocytes # (Manual) PT INR ABG pH ABG pO2 ABG HCO3 ABG O2 Saturation ABG Base Excess ABG Hemoglobin Oxyhemoglobin Sodium Potassium Chloride Carbon Dioxide BUN Creatinine Glucose POC Glucose Calcium Phosphorus Magnesium Total Creatine Kinase CK-MB (CK-2) Rel Index Troponin T C-Reactive Protein Total Protein Albumin LDL Cholesterol Direct Urine WBC (Auto) 8.0 H Crossmatch 04/06/22 04/06/22 04/07/22 04:00 08:30 00:04 WBC RBC Hgb Hct MCV MCH MCHC RDW Plt Count Lymph % (Auto) [place] % (Auto) Lymph # (Auto) [place] # (Auto) Seg Neutrophils % Seg Neuts % (Manual) Lymphocytes % (Manual) Seg Neutrophils # Seg Neutrophils # Man Lymphocytes # (Manual) PT INR ABG pH ABG pO2 60.8 L ABG HCO3 30.5 H ABG O2 Saturation 93.3 L ABG Base Excess 4.9 H ABG Hemoglobin 12.4 L Oxyhemoglobin 92.1 L Sodium Potassium 3.0 L Chloride Carbon Dioxide BUN Creatinine < 0.2 L Glucose 130 H POC Glucose 117 H Calcium 8.1 L Phosphorus Magnesium Total Creatine Kinase CK-MB (CK-2) Rel Index Troponin T C-Reactive Protein Total Protein Albumin LDL Cholesterol Direct Urine WBC (Auto) Crossmatch 04/07/22 04/07/22 04/07/22 03:51 03:51 03:51 WBC 14.6 H RBC 3.57 L Hgb 11.1 L Hct 33.2 L MCV MCH MCHC RDW Plt Count 118 L Lymph % (Auto) 4.3 L [place] % (Auto) 8.8 H Lymph # (Auto) 0.6 L [place] # (Auto) 1.3 H Seg Neutrophils % 86.6 H Seg Neuts % (Manual) Lymphocytes % (Manual) Seg Neutrophils # 12.7 H Seg Neutrophils # Man Lymphocytes # (Manual) PT 15.2 H INR ABG pH ABG pO2 ABG HCO3 ABG O2 Saturation ABG Base Excess ABG Hemoglobin Oxyhemoglobin Sodium 133 L Potassium Chloride 96.0 L Carbon Dioxide 31 H BUN Creatinine 0.2 L Glucose 130 H POC Glucose Calcium 8.0 L Phosphorus Magnesium Total Creatine Kinase CK-MB (CK-2) Rel Index Troponin T C-Reactive Protein Total Protein Albumin LDL Cholesterol Direct Urine WBC (Auto) Crossmatch 04/07/22 04/07/22 04/08/22 04:25 09:10 04:49 WBC 16.1 H RBC 3.54 L Hgb 10.9 L Hct 33.3 L MCV MCH MCHC RDW Plt Count Lymph % (Auto) [place] % (Auto) Lymph # (Auto) [place] # (Auto) Seg Neutrophils % Seg Neuts % (Manual) Lymphocytes % (Manual) Seg Neutrophils # Seg Neutrophils # Man Lymphocytes # (Manual) PT INR ABG pH ABG pO2 71.0 L 63.4 L ABG HCO3 31.5 H 40.0 H ABG O2 Saturation 94.9 L ABG Base Excess 5.9 H 13.6 H ABG Hemoglobin 11.3 L 9.0 L Oxyhemoglobin 93.6 L Sodium Potassium Chloride Carbon Dioxide BUN Creatinine Glucose POC Glucose Calcium Phosphorus Magnesium Total Creatine Kinase CK-MB (CK-2) Rel Index Troponin T C-Reactive Protein Total Protein Albumin LDL Cholesterol Direct Urine WBC (Auto) Crossmatch 04/08/22 04/08/22 04/08/22 04:49 09:53 10:25 WBC RBC Hgb Hct MCV MCH MCHC RDW Plt Count Lymph % (Auto) [place] % (Auto) Lymph # (Auto) [place] # (Auto) Seg Neutrophils % Seg Neuts % (Manual) Lymphocytes % (Manual) Seg Neutrophils # Seg Neutrophils # Man Lymphocytes # (Manual) PT INR ABG pH ABG pO2 ABG HCO3 34.7 H ABG O2 Saturation ABG Base Excess 7.9 H ABG Hemoglobin 11.0 L Oxyhemoglobin Sodium 136 L Potassium Chloride 97.7 L Carbon Dioxide 33 H BUN Creatinine 0.2 L Glucose 155 H POC Glucose Calcium Phosphorus Magnesium Total Creatine Kinase CK-MB (CK-2) Rel Index Troponin T 0.030 H C-Reactive Protein Total Protein Albumin LDL Cholesterol Direct Urine WBC (Auto) Crossmatch 04/08/22 04/08/22 04/08/22 11:19 17:47 18:06 WBC RBC Hgb Hct MCV MCH MCHC RDW Plt Count Lymph % (Auto) [place] % (Auto) Lymph # (Auto) [place] # (Auto) Seg Neutrophils % Seg Neuts % (Manual) Lymphocytes % (Manual) Seg Neutrophils # Seg Neutrophils # Man Lymphocytes # (Manual) PT INR ABG pH ABG pO2 ABG HCO3 ABG O2 Saturation ABG Base Excess ABG Hemoglobin Oxyhemoglobin Sodium Potassium Chloride Carbon Dioxide BUN Creatinine Glucose POC Glucose 121 H Calcium Phosphorus Magnesium Total Creatine Kinase 31 L 46 L CK-MB (CK-2) Rel Index 6.4 H 5.6 H Troponin T 0.030 H 0.031 H C-Reactive Protein Total Protein Albumin LDL Cholesterol Direct Urine WBC (Auto) Crossmatch 04/09/22 04/09/22 04/09/22 04:35 04:35 11:24 WBC 11.5 H RBC 3.16 L Hgb 9.9 L Hct 29.4 L MCV MCH MCHC RDW Plt Count 131 L Lymph % (Auto) [place] % (Auto) Lymph # (Auto) [place] # (Auto) Seg Neutrophils % Seg Neuts % (Manual) Lymphocytes % (Manual) Seg Neutrophils # Seg Neutrophils # Man Lymphocytes # (Manual) PT INR ABG pH ABG pO2 ABG HCO3 ABG O2 Saturation ABG Base Excess ABG Hemoglobin Oxyhemoglobin Sodium Potassium Chloride 97.1 L Carbon Dioxide 35 H BUN Creatinine < 0.2 L Glucose 145 H POC Glucose 147 H Calcium Phosphorus Magnesium Total Creatine Kinase CK-MB (CK-2) Rel Index Troponin T C-Reactive Protein Total Protein Albumin LDL Cholesterol Direct Urine WBC (Auto) Crossmatch 04/09/22 04/09/22 04/09/22 13:00 17:32 23:48 WBC RBC Hgb Hct MCV MCH MCHC RDW Plt Count Lymph % (Auto) [place] % (Auto) Lymph # (Auto) [place] # (Auto) Seg Neutrophils % Seg Neuts % (Manual) Lymphocytes % (Manual) Seg Neutrophils # Seg Neutrophils # Man Lymphocytes # (Manual) PT INR ABG pH ABG pO2 66.6 L ABG HCO3 38.2 H ABG O2 Saturation 94.4 L ABG Base Excess 10.7 H ABG Hemoglobin 10.7 L Oxyhemoglobin 92.8 L Sodium Potassium Chloride Carbon Dioxide BUN Creatinine Glucose POC Glucose 143 H 114 H Calcium Phosphorus Magnesium Total Creatine Kinase CK-MB (CK-2) Rel Index Troponin T C-Reactive Protein Total Protein Albumin LDL Cholesterol Direct Urine WBC (Auto) Crossmatch 04/10/22 04/10/22 04/10/22 04:48 04:48 05:34 WBC RBC 2.91 L Hgb 9.1 L Hct 27.7 L MCV 95 H MCH MCHC RDW Plt Count Lymph % (Auto) [place] % (Auto) Lymph # (Auto) [place] # (Auto) Seg Neutrophils % Seg Neuts % (Manual) Lymphocytes % (Manual) Seg Neutrophils # Seg Neutrophils # Man Lymphocytes # (Manual) PT INR ABG pH ABG pO2 ABG HCO3 ABG O2 Saturation ABG Base Excess ABG Hemoglobin Oxyhemoglobin Sodium Potassium Chloride 95.7 L Carbon Dioxide 38 H BUN Creatinine < 0.2 L Glucose 118 H POC Glucose 127 H Calcium Phosphorus Magnesium Total Creatine Kinase CK-MB (CK-2) Rel Index Troponin T C-Reactive Protein Total Protein Albumin LDL Cholesterol Direct Urine WBC (Auto) Crossmatch 04/10/22 04/11/22 04/11/22 23:10 04:15 04:15 WBC 17.2 H RBC 2.98 L Hgb 9.2 L Hct 27.9 L MCV MCH MCHC RDW Plt Count Lymph % (Auto) [place] % (Auto) Lymph # (Auto) [place] # (Auto) Seg Neutrophils % Seg Neuts % (Manual) Lymphocytes % (Manual) Seg Neutrophils # Seg Neutrophils # Man Lymphocytes # (Manual) PT INR ABG pH ABG pO2 ABG HCO3 ABG O2 Saturation ABG Base Excess ABG Hemoglobin Oxyhemoglobin Sodium Potassium Chloride 96.1 L Carbon Dioxide 35 H BUN Creatinine < 0.2 L Glucose 138 H POC Glucose 106 H Calcium 8.3 L Phosphorus Magnesium Total Creatine Kinase CK-MB (CK-2) Rel Index Troponin T C-Reactive Protein Total Protein Albumin LDL Cholesterol Direct Urine WBC (Auto) Crossmatch 04/11/22 04/11/22 04/11/22 05:31 13:18 16:20 WBC RBC Hgb Hct MCV MCH MCHC RDW Plt Count Lymph % (Auto) [place] % (Auto) Lymph # (Auto) [place] # (Auto) Seg Neutrophils % Seg Neuts % (Manual) Lymphocytes % (Manual) Seg Neutrophils # Seg Neutrophils # Man Lymphocytes # (Manual) PT INR ABG pH ABG pO2 57.8 L ABG HCO3 40.5 H ABG O2 Saturation 90.6 L ABG Base Excess 12.6 H ABG Hemoglobin 10.5 L Oxyhemoglobin 89.0 L Sodium Potassium Chloride Carbon Dioxide BUN Creatinine Glucose POC Glucose 129 H 132 H Calcium Phosphorus Magnesium Total Creatine Kinase CK-MB (CK-2) Rel Index Troponin T C-Reactive Protein Total Protein Albumin LDL Cholesterol Direct Urine WBC (Auto) Crossmatch 04/11/22 04/11/22 04/12/22 17:29 23:17 04:00 WBC 17.4 H RBC 2.96 L Hgb 9.0 L Hct 28.0 L MCV 95 H MCH MCHC RDW Plt Count Lymph % (Auto) [place] % (Auto) Lymph # (Auto) [place] # (Auto) Seg Neutrophils % Seg Neuts % (Manual) Lymphocytes % (Manual) Seg Neutrophils # Seg Neutrophils # Man Lymphocytes # (Manual) PT INR ABG pH ABG pO2 ABG HCO3 ABG O2 Saturation ABG Base Excess ABG Hemoglobin Oxyhemoglobin Sodium Potassium Chloride Carbon Dioxide BUN Creatinine Glucose POC Glucose 125 H 151 H Calcium Phosphorus Magnesium Total Creatine Kinase CK-MB (CK-2) Rel Index Troponin T C-Reactive Protein Total Protein Albumin LDL Cholesterol Direct Urine WBC (Auto) Crossmatch 04/12/22 04/12/22 04/12/22 04:00 17:03 23:39 WBC RBC Hgb Hct MCV MCH MCHC RDW Plt Count Lymph % (Auto) [place] % (Auto) Lymph # (Auto) [place] # (Auto) Seg Neutrophils % Seg Neuts % (Manual) Lymphocytes % (Manual) Seg Neutrophils # Seg Neutrophils # Man Lymphocytes # (Manual) PT INR ABG pH ABG pO2 ABG HCO3 ABG O2 Saturation ABG Base Excess ABG Hemoglobin Oxyhemoglobin Sodium Potassium Chloride 97.4 L Carbon Dioxide 37 H BUN Creatinine < 0.2 L Glucose 127 H POC Glucose 106 H 107 H Calcium Phosphorus Magnesium Total Creatine Kinase CK-MB (CK-2) Rel Index Troponin T C-Reactive Protein Total Protein Albumin LDL Cholesterol Direct Urine WBC (Auto) Crossmatch 04/13/22 04/13/22 04/13/22 04:30 04:30 17:39 WBC 14.1 H RBC 2.66 L Hgb 8.4 L Hct 25.5 L MCV 96 H MCH MCHC RDW Plt Count Lymph % (Auto) [place] % (Auto) Lymph # (Auto) [place] # (Auto) Seg Neutrophils % Seg Neuts % (Manual) Lymphocytes % (Manual) Seg Neutrophils # Seg Neutrophils # Man Lymphocytes # (Manual) PT INR ABG pH ABG pO2 ABG HCO3 ABG O2 Saturation ABG Base Excess ABG Hemoglobin Oxyhemoglobin Sodium Potassium Chloride 93.9 L Carbon Dioxide 39 H BUN Creatinine < 0.2 L Glucose POC Glucose 134 H Calcium Phosphorus 1.90 L Magnesium Total Creatine Kinase CK-MB (CK-2) Rel Index Troponin T C-Reactive Protein Total Protein Albumin LDL Cholesterol Direct Urine WBC (Auto) Crossmatch 04/14/22 04/14/22 04/14/22 05:03 05:03 09:10 WBC 15.6 H RBC 3.02 L Hgb 9.3 L Hct 28.8 L MCV 95 H MCH MCHC RDW Plt Count Lymph % (Auto) [place] % (Auto) Lymph # (Auto) [place] # (Auto) Seg Neutrophils % Seg Neuts % (Manual) Lymphocytes % (Manual) Seg Neutrophils # Seg Neutrophils # Man Lymphocytes # (Manual) PT INR ABG pH ABG pO2 66.9 L ABG HCO3 44.5 H ABG O2 Saturation ABG Base Excess 17.2 H ABG Hemoglobin 8.1 L Oxyhemoglobin 94.8 L Sodium Potassium Chloride 93.8 L Carbon Dioxide 42 H* BUN Creatinine < 0.2 L Glucose 117 H POC Glucose Calcium Phosphorus Magnesium Total Creatine Kinase CK-MB (CK-2) Rel Index Troponin T C-Reactive Protein Total Protein Albumin LDL Cholesterol Direct Urine WBC (Auto) Crossmatch 04/15/22 04/15/22 04/16/22 04:44 04:44 04:16 WBC 13.0 H 12.6 H RBC 3.19 L 3.09 L Hgb 9.6 L 9.5 L Hct 30.2 L 29.1 L MCV 95 H MCH MCHC RDW Plt Count 456 H Lymph % (Auto) [place] % (Auto) Lymph # (Auto) [place] # (Auto) Seg Neutrophils % Seg Neuts % (Manual) Lymphocytes % (Manual) Seg Neutrophils # Seg Neutrophils # Man Lymphocytes # (Manual) PT INR ABG pH ABG pO2 ABG HCO3 ABG O2 Saturation ABG Base Excess ABG Hemoglobin Oxyhemoglobin Sodium Potassium Chloride 95.5 L Carbon Dioxide 37 H BUN Creatinine < 0.2 L Glucose POC Glucose Calcium Phosphorus Magnesium Total Creatine Kinase CK-MB (CK-2) Rel Index Troponin T C-Reactive Protein Total Protein Albumin LDL Cholesterol Direct Urine WBC (Auto) Crossmatch 04/16/22 04/16/22 04/16/22 04:16 05:00 14:00 WBC RBC Hgb Hct MCV MCH MCHC RDW Plt Count Lymph % (Auto) [place] % (Auto) Lymph # (Auto) [place] # (Auto) Seg Neutrophils % Seg Neuts % (Manual) Lymphocytes % (Manual) Seg Neutrophils # Seg Neutrophils # Man Lymphocytes # (Manual) PT INR ABG pH 7.324 L ABG pO2 55.6 L ABG HCO3 45.3 H ABG O2 Saturation 87.1 L ABG Base Excess 16.6 H ABG Hemoglobin 8.6 L Oxyhemoglobin 85.7 L Sodium Potassium Chloride 97.6 L Carbon Dioxide 36 H BUN Creatinine < 0.2 L Glucose 109 H POC Glucose 120 H Calcium Phosphorus Magnesium Total Creatine Kinase CK-MB (CK-2) Rel Index Troponin T C-Reactive Protein Total Protein Albumin LDL Cholesterol Direct Urine WBC (Auto) Crossmatch 04/17/22 04/17/22 04/17/22 04:36 04:36 04:57 WBC 14.4 H RBC 3.08 L Hgb 9.4 L Hct 29.0 L MCV MCH MCHC RDW Plt Count Lymph % (Auto) [place] % (Auto) Lymph # (Auto) [place] # (Auto) Seg Neutrophils % Seg Neuts % (Manual) Lymphocytes % (Manual) Seg Neutrophils # Seg Neutrophils # Man Lymphocytes # (Manual) PT INR ABG pH ABG pO2 ABG HCO3 ABG O2 Saturation ABG Base Excess ABG Hemoglobin Oxyhemoglobin Sodium Potassium Chloride 95.9 L Carbon Dioxide 39 H BUN Creatinine < 0.2 L Glucose 140 H POC Glucose 137 H Calcium 8.3 L Phosphorus Magnesium Total Creatine Kinase CK-MB (CK-2) Rel Index Troponin T C-Reactive Protein Total Protein Albumin LDL Cholesterol Direct Urine WBC (Auto) Crossmatch 04/17/22 04/17/22 04/18/22 09:15 18:01 04:20 WBC 11.2 H RBC 3.00 L Hgb 9.3 L Hct 28.6 L MCV 95 H MCH MCHC RDW Plt Count Lymph % (Auto) [place] % (Auto) Lymph # (Auto) [place] # (Auto) Seg Neutrophils % Seg Neuts % (Manual) Lymphocytes % (Manual) Seg Neutrophils # Seg Neutrophils # Man Lymphocytes # (Manual) PT INR ABG pH 7.345 L ABG pO2 ABG HCO3 48.2 H ABG O2 Saturation ABG Base Excess 19.2 H ABG Hemoglobin 9.7 L Oxyhemoglobin Sodium Potassium Chloride Carbon Dioxide BUN Creatinine Glucose POC Glucose 129 H Calcium Phosphorus Magnesium Total Creatine Kinase CK-MB (CK-2) Rel Index Troponin T C-Reactive Protein Total Protein Albumin LDL Cholesterol Direct Urine WBC (Auto) Crossmatch 04/18/22 04/18/22 04/18/22 04:20 17:35 23:50 WBC RBC Hgb Hct MCV MCH MCHC RDW Plt Count Lymph % (Auto) [place] % (Auto) Lymph # (Auto) [place] # (Auto) Seg Neutrophils % Seg Neuts % (Manual) Lymphocytes % (Manual) Seg Neutrophils # Seg Neutrophils # Man Lymphocytes # (Manual) PT INR ABG pH ABG pO2 ABG HCO3 ABG O2 Saturation ABG Base Excess ABG Hemoglobin Oxyhemoglobin Sodium Potassium Chloride 96.8 L Carbon Dioxide 43 H* BUN 22 H Creatinine < 0.2 L Glucose 137 H POC Glucose 128 H 123 H Calcium 8.2 L Phosphorus Magnesium Total Creatine Kinase CK-MB (CK-2) Rel Index Troponin T C-Reactive Protein Total Protein Albumin LDL Cholesterol Direct Urine WBC (Auto) Crossmatch 04/19/22 04/19/22 04/19/22 04:08 04:08 08:50 WBC 16.8 H RBC 3.18 L Hgb 9.8 L Hct 30.1 L MCV 95 H MCH MCHC RDW Plt Count Lymph % (Auto) [place] % (Auto) Lymph # (Auto) [place] # (Auto) Seg Neutrophils % Seg Neuts % (Manual) Lymphocytes % (Manual) Seg Neutrophils # Seg Neutrophils # Man Lymphocytes # (Manual) PT INR ABG pH ABG pO2 56.0 L ABG HCO3 47.1 H ABG O2 Saturation 93.3 L ABG Base Excess 20.1 H ABG Hemoglobin 8.0 L Oxyhemoglobin 91.8 L Sodium Potassium Chloride 96.2 L Carbon Dioxide 40 H BUN 24 H Creatinine < 0.2 L Glucose 125 H POC Glucose Calcium 8.3 L Phosphorus Magnesium Total Creatine Kinase CK-MB (CK-2) Rel Index Troponin T C-Reactive Protein Total Protein Albumin LDL Cholesterol Direct Urine WBC (Auto) Crossmatch 04/19/22 04/20/22 04/20/22 12:02 00:40 04:49 WBC 14.7 H RBC 3.36 L Hgb 10.3 L Hct 32.0 L MCV 95 H MCH MCHC RDW Plt Count Lymph % (Auto) [place] % (Auto) Lymph # (Auto) [place] # (Auto) Seg Neutrophils % Seg Neuts % (Manual) Lymphocytes % (Manual) Seg Neutrophils # Seg Neutrophils # Man Lymphocytes # (Manual) PT INR ABG pH ABG pO2 ABG HCO3 ABG O2 Saturation ABG Base Excess ABG Hemoglobin Oxyhemoglobin Sodium Potassium Chloride Carbon Dioxide BUN Creatinine Glucose POC Glucose 124 H 140 H Calcium Phosphorus Magnesium Total Creatine Kinase CK-MB (CK-2) Rel Index Troponin T C-Reactive Protein Total Protein Albumin LDL Cholesterol Direct Urine WBC (Auto) Crossmatch 04/20/22 04/20/22 04/21/22 05:36 11:40 04:05 WBC RBC Hgb Hct MCV MCH MCHC RDW Plt Count Lymph % (Auto) [place] % (Auto) Lymph # (Auto) [place] # (Auto) Seg Neutrophils % Seg Neuts % (Manual) Lymphocytes % (Manual) Seg Neutrophils # Seg Neutrophils # Man Lymphocytes # (Manual) PT INR ABG pH ABG pO2 ABG HCO3 ABG O2 Saturation ABG Base Excess ABG Hemoglobin Oxyhemoglobin Sodium Potassium Chloride 93.4 L Carbon Dioxide 40 H BUN 25 H Creatinine < 0.2 L Glucose 122 H POC Glucose 125 H 128 H Calcium Phosphorus Magnesium Total Creatine Kinase CK-MB (CK-2) Rel Index Troponin T C-Reactive Protein Total Protein Albumin LDL Cholesterol Direct Urine WBC (Auto) Crossmatch 04/21/22 04/22/22 04/22/22 10:31 05:03 05:03 WBC 12.6 H 12.7 H RBC 2.83 L 2.96 L Hgb 8.6 L 9.0 L Hct 26.9 L 28.0 L MCV 95 H 95 H MCH MCHC RDW Plt Count Lymph % (Auto) [place] % (Auto) Lymph # (Auto) [place] # (Auto) Seg Neutrophils % Seg Neuts % (Manual) Lymphocytes % (Manual) Seg Neutrophils # Seg Neutrophils # Man Lymphocytes # (Manual) PT INR ABG pH ABG pO2 ABG HCO3 ABG O2 Saturation ABG Base Excess ABG Hemoglobin Oxyhemoglobin Sodium Potassium Chloride 93.9 L Carbon Dioxide 43 H* BUN 23 H Creatinine < 0.2 L Glucose 137 H POC Glucose Calcium Phosphorus Magnesium Total Creatine Kinase CK-MB (CK-2) Rel Index Troponin T C-Reactive Protein Total Protein Albumin LDL Cholesterol Direct Urine WBC (Auto) Crossmatch 04/22/22 04/23/22 04/24/22 08:34 09:40 04:29 WBC 14.4 H RBC 2.74 L Hgb 8.4 L Hct 25.7 L MCV MCH MCHC RDW Plt Count Lymph % (Auto) [place] % (Auto) Lymph # (Auto) [place] # (Auto) Seg Neutrophils % Seg Neuts % (Manual) Lymphocytes % (Manual) Seg Neutrophils # Seg Neutrophils # Man Lymphocytes # (Manual) PT INR ABG pH ABG pO2 54.1 L 56.8 L ABG HCO3 48.5 H 49.0 H ABG O2 Saturation 92.1 L 90.9 L ABG Base Excess 20.9 H 20.8 H ABG Hemoglobin 9.0 L 8.4 L Oxyhemoglobin 90.6 L 89.5 L Sodium Potassium Chloride Carbon Dioxide BUN Creatinine Glucose POC Glucose Calcium Phosphorus Magnesium Total Creatine Kinase CK-MB (CK-2) Rel Index Troponin T C-Reactive Protein Total Protein Albumin LDL Cholesterol Direct Urine WBC (Auto) Crossmatch 04/24/22 04/25/22 04/26/22 04:29 09:00 04:22 WBC RBC 2.88 L Hgb 8.9 L Hct 26.8 L MCV MCH MCHC RDW Plt Count Lymph % (Auto) [place] % (Auto) Lymph # (Auto) [place] # (Auto) Seg Neutrophils % Seg Neuts % (Manual) Lymphocytes % (Manual) Seg Neutrophils # Seg Neutrophils # Man Lymphocytes # (Manual) PT INR ABG pH 7.457 H ABG pO2 66.7 L ABG HCO3 42.6 H ABG O2 Saturation ABG Base Excess 15.3 H ABG Hemoglobin 8.8 L Oxyhemoglobin 94.1 L Sodium Potassium Chloride 90.7 L Carbon Dioxide 40 H BUN Creatinine < 0.2 L Glucose 133 H POC Glucose Calcium Phosphorus Magnesium Total Creatine Kinase CK-MB (CK-2) Rel Index Troponin T C-Reactive Protein Total Protein Albumin LDL Cholesterol Direct Urine WBC (Auto) Crossmatch 04/26/22 04/29/22 04/29/22 04:22 04:18 04:18 WBC 13.5 H RBC 2.96 L Hgb 8.9 L Hct 27.7 L MCV MCH MCHC RDW Plt Count Lymph % (Auto) [place] % (Auto) Lymph # (Auto) [place] # (Auto) Seg Neutrophils % Seg Neuts % (Manual) Lymphocytes % (Manual) Seg Neutrophils # Seg Neutrophils # Man Lymphocytes # (Manual) PT INR ABG pH ABG pO2 ABG HCO3 ABG O2 Saturation ABG Base Excess ABG Hemoglobin Oxyhemoglobin Sodium Potassium Chloride 93.2 L 95.2 L Carbon Dioxide 37 H 38 H BUN Creatinine < 0.2 L < 0.2 L Glucose 114 H 116 H POC Glucose Calcium Phosphorus Magnesium Total Creatine Kinase CK-MB (CK-2) Rel Index Troponin T C-Reactive Protein Total Protein Albumin LDL Cholesterol Direct Urine WBC (Auto) Crossmatch 05/02/22 05/03/22 05/03/22 04:29 04:02 04:02 WBC 12.9 H 12.3 H RBC 2.82 L 2.83 L Hgb 8.4 L 8.4 L Hct 26.2 L 26.0 L MCV MCH MCHC RDW Plt Count Lymph % (Auto) [place] % (Auto) Lymph # (Auto) [place] # (Auto) Seg Neutrophils % Seg Neuts % (Manual) Lymphocytes % (Manual) Seg Neutrophils # Seg Neutrophils # Man Lymphocytes # (Manual) PT INR ABG pH ABG pO2 ABG HCO3 ABG O2 Saturation ABG Base Excess ABG Hemoglobin Oxyhemoglobin Sodium 134 L Potassium Chloride 90.5 L Carbon Dioxide 38 H BUN 21 H Creatinine < 0.2 L Glucose 126 H POC Glucose Calcium Phosphorus Magnesium Total Creatine Kinase CK-MB (CK-2) Rel Index Troponin T C-Reactive Protein Total Protein Albumin LDL Cholesterol Direct Urine WBC (Auto) Crossmatch 05/03/22 05/03/22 05/04/22 12:02 17:42 09:36 WBC RBC Hgb Hct MCV MCH MCHC RDW Plt Count Lymph % (Auto) [place] % (Auto) Lymph # (Auto) [place] # (Auto) Seg Neutrophils % Seg Neuts % (Manual) Lymphocytes % (Manual) Seg Neutrophils # Seg Neutrophils # Man Lymphocytes # (Manual) PT INR ABG pH ABG pO2 55.4 L ABG HCO3 43.7 H ABG O2 Saturation 87.4 L ABG Base Excess 16.1 H ABG Hemoglobin 9.1 L Oxyhemoglobin 85.7 L Sodium Potassium Chloride Carbon Dioxide BUN Creatinine Glucose POC Glucose 139 H 131 H Calcium Phosphorus Magnesium Total Creatine Kinase CK-MB (CK-2) Rel Index Troponin T C-Reactive Protein Total Protein Albumin LDL Cholesterol Direct Urine WBC (Auto) Crossmatch 05/04/22 05/04/22 05/05/22 17:08 23:10 04:23 WBC 14.4 H RBC 2.75 L Hgb 8.2 L Hct 25.2 L MCV MCH MCHC RDW Plt Count Lymph % (Auto) [place] % (Auto) Lymph # (Auto) [place] # (Auto) Seg Neutrophils % Seg Neuts % (Manual) Lymphocytes % (Manual) Seg Neutrophils # Seg Neutrophils # Man Lymphocytes # (Manual) PT INR ABG pH ABG pO2 ABG HCO3 ABG O2 Saturation ABG Base Excess ABG Hemoglobin Oxyhemoglobin Sodium Potassium Chloride Carbon Dioxide BUN Creatinine Glucose POC Glucose 124 H 115 H Calcium Phosphorus Magnesium Total Creatine Kinase CK-MB (CK-2) Rel Index Troponin T C-Reactive Protein Total Protein Albumin LDL Cholesterol Direct Urine WBC (Auto) Crossmatch 05/05/22 05/05/22 05/06/22 04:23 21:39 05:13 WBC RBC Hgb Hct MCV MCH MCHC RDW Plt Count Lymph % (Auto) [place] % (Auto) Lymph # (Auto) [place] # (Auto) Seg Neutrophils % Seg Neuts % (Manual) Lymphocytes % (Manual) Seg Neutrophils # Seg Neutrophils # Man Lymphocytes # (Manual) PT INR ABG pH ABG pO2 ABG HCO3 ABG O2 Saturation ABG Base Excess ABG Hemoglobin Oxyhemoglobin Sodium Potassium Chloride 91.3 L Carbon Dioxide 38 H BUN 23 H Creatinine < 0.2 L Glucose 128 H POC Glucose 141 H 136 H Calcium Phosphorus Magnesium Total Creatine Kinase CK-MB (CK-2) Rel Index Troponin T C-Reactive Protein Total Protein Albumin LDL Cholesterol Direct Urine WBC (Auto) Crossmatch 05/07/22 05/07/22 05/08/22 05:29 22:15 05:48 WBC RBC Hgb Hct MCV MCH MCHC RDW Plt Count Lymph % (Auto) [place] % (Auto) Lymph # (Auto) [place] # (Auto) Seg Neutrophils % Seg Neuts % (Manual) Lymphocytes % (Manual) Seg Neutrophils # Seg Neutrophils # Man Lymphocytes # (Manual) PT INR ABG pH ABG pO2 ABG HCO3 ABG O2 Saturation ABG Base Excess ABG Hemoglobin Oxyhemoglobin Sodium Potassium Chloride Carbon Dioxide BUN Creatinine Glucose POC Glucose 125 H 142 H 122 H Calcium Phosphorus Magnesium Total Creatine Kinase CK-MB (CK-2) Rel Index Troponin T C-Reactive Protein Total Protein Albumin LDL Cholesterol Direct Urine WBC (Auto) Crossmatch 05/08/22 05/08/22 05/09/22 14:04 21:48 15:15 WBC RBC 2.61 L Hgb 7.7 L Hct 23.2 L MCV MCH MCHC RDW Plt Count Lymph % (Auto) 8.1 L [place] % (Auto) Lymph # (Auto) 0.9 L [place] # (Auto) Seg Neutrophils % 86.1 H Seg Neuts % (Manual) Lymphocytes % (Manual) Seg Neutrophils # 9.2 H Seg Neutrophils # Man Lymphocytes # (Manual) PT INR ABG pH ABG pO2 ABG HCO3 ABG O2 Saturation ABG Base Excess ABG Hemoglobin Oxyhemoglobin Sodium Potassium Chloride Carbon Dioxide BUN Creatinine Glucose POC Glucose 112 H 107 H Calcium Phosphorus Magnesium Total Creatine Kinase CK-MB (CK-2) Rel Index Troponin T C-Reactive Protein Total Protein Albumin LDL Cholesterol Direct Urine WBC (Auto) Crossmatch 05/09/22 05/09/22 05/09/22 15:15 15:39 21:15 WBC RBC Hgb Hct MCV MCH MCHC RDW Plt Count Lymph % (Auto) [place] % (Auto) Lymph # (Auto) [place] # (Auto) Seg Neutrophils % Seg Neuts % (Manual) Lymphocytes % (Manual) Seg Neutrophils # Seg Neutrophils # Man Lymphocytes # (Manual) PT INR ABG pH ABG pO2 ABG HCO3 ABG O2 Saturation ABG Base Excess ABG Hemoglobin Oxyhemoglobin Sodium Potassium Chloride 92.9 L Carbon Dioxide 40 H BUN Creatinine < 0.2 L Glucose 141 H POC Glucose 118 H 112 H Calcium Phosphorus Magnesium Total Creatine Kinase CK-MB (CK-2) Rel Index Troponin T C-Reactive Protein Total Protein Albumin LDL Cholesterol Direct Urine WBC (Auto) Crossmatch 05/10/22 05/12/22 05/13/22 15:14 00:25 04:02 WBC 13.3 H RBC 3.14 L Hgb 8.7 L Hct 28.0 L MCV MCH MCHC 31 L RDW Plt Count Lymph % (Auto) [place] % (Auto) Lymph # (Auto) [place] # (Auto) Seg Neutrophils % Seg Neuts % (Manual) Lymphocytes % (Manual) Seg Neutrophils # Seg Neutrophils # Man Lymphocytes # (Manual) PT INR ABG pH ABG pO2 ABG HCO3 ABG O2 Saturation ABG Base Excess ABG Hemoglobin Oxyhemoglobin Sodium Potassium Chloride Carbon Dioxide BUN Creatinine Glucose POC Glucose 113 H 158 H Calcium Phosphorus Magnesium Total Creatine Kinase CK-MB (CK-2) Rel Index Troponin T C-Reactive Protein Total Protein Albumin LDL Cholesterol Direct Urine WBC (Auto) Crossmatch 05/13/22 05/13/22 05/13/22 04:02 06:32 13:09 WBC RBC Hgb Hct MCV MCH MCHC RDW Plt Count Lymph % (Auto) [place] % (Auto) Lymph # (Auto) [place] # (Auto) Seg Neutrophils % Seg Neuts % (Manual) Lymphocytes % (Manual) Seg Neutrophils # Seg Neutrophils # Man Lymphocytes # (Manual) PT INR ABG pH ABG pO2 ABG HCO3 ABG O2 Saturation ABG Base Excess ABG Hemoglobin Oxyhemoglobin Sodium 135 L Potassium Chloride 91.1 L Carbon Dioxide 40 H BUN 23 H Creatinine < 0.2 L Glucose 139 H POC Glucose 129 H 117 H Calcium Phosphorus Magnesium Total Creatine Kinase CK-MB (CK-2) Rel Index Troponin T C-Reactive Protein Total Protein Albumin LDL Cholesterol Direct Urine WBC (Auto) Crossmatch 05/13/22 05/14/22 05/14/22 21:28 05:44 07:35 WBC RBC Hgb Hct MCV MCH MCHC RDW Plt Count Lymph % (Auto) [place] % (Auto) Lymph # (Auto) [place] # (Auto) Seg Neutrophils % Seg Neuts % (Manual) Lymphocytes % (Manual) Seg Neutrophils # Seg Neutrophils # Man Lymphocytes # (Manual) PT INR ABG pH ABG pO2 ABG HCO3 ABG O2 Saturation ABG Base Excess ABG Hemoglobin Oxyhemoglobin Sodium Potassium Chloride Carbon Dioxide BUN Creatinine Glucose POC Glucose 109 H 130 H 125 H Calcium Phosphorus Magnesium Total Creatine Kinase CK-MB (CK-2) Rel Index Troponin T C-Reactive Protein Total Protein Albumin LDL Cholesterol Direct Urine WBC (Auto) Crossmatch 05/14/22 05/14/22 05/15/22 16:26 23:44 10:44 WBC 13.9 H RBC 2.71 L Hgb 7.5 L Hct 23.5 L MCV MCH MCHC RDW 15.9 H Plt Count Lymph % (Auto) [place] % (Auto) Lymph # (Auto) [place] # (Auto) Seg Neutrophils % Seg Neuts % (Manual) Lymphocytes % (Manual) Seg Neutrophils # Seg Neutrophils # Man Lymphocytes # (Manual) PT INR ABG pH ABG pO2 ABG HCO3 ABG O2 Saturation ABG Base Excess ABG Hemoglobin Oxyhemoglobin Sodium Potassium Chloride Carbon Dioxide BUN Creatinine Glucose POC Glucose 112 H 189 H Calcium Phosphorus Magnesium Total Creatine Kinase CK-MB (CK-2) Rel Index Troponin T C-Reactive Protein Total Protein Albumin LDL Cholesterol Direct Urine WBC (Auto) Crossmatch 05/15/22 05/16/22 05/16/22 10:44 14:50 21:36 WBC RBC Hgb Hct MCV MCH MCHC RDW Plt Count Lymph % (Auto) [place] % (Auto) Lymph # (Auto) [place] # (Auto) Seg Neutrophils % Seg Neuts % (Manual) Lymphocytes % (Manual) Seg Neutrophils # Seg Neutrophils # Man Lymphocytes # (Manual) PT INR ABG pH ABG pO2 ABG HCO3 ABG O2 Saturation ABG Base Excess ABG Hemoglobin Oxyhemoglobin Sodium 135 L Potassium 3.3 L D Chloride 91.5 L Carbon Dioxide 33 H D BUN 21 H Creatinine < 0.2 L Glucose 118 H POC Glucose 133 H 123 H Calcium 7.9 L Phosphorus Magnesium Total Creatine Kinase CK-MB (CK-2) Rel Index Troponin T C-Reactive Protein Total Protein Albumin LDL Cholesterol Direct Urine WBC (Auto) Crossmatch 05/17/22 05/17/22 05/17/22 03:41 03:41 05:51 WBC 16.2 H RBC 2.53 L Hgb 7.0 L Hct 21.5 L MCV MCH MCHC RDW 16.2 H Plt Count Lymph % (Auto) [place] % (Auto) Lymph # (Auto) [place] # (Auto) Seg Neutrophils % Seg Neuts % (Manual) 96.0 H Lymphocytes % (Manual) 1.0 L Seg Neutrophils # Seg Neutrophils # Man 15.6 H Lymphocytes # (Manual) 0.2 L PT INR ABG pH ABG pO2 ABG HCO3 ABG O2 Saturation ABG Base Excess ABG Hemoglobin Oxyhemoglobin Sodium 132 L Potassium Chloride 95.0 L Carbon Dioxide BUN 22 H Creatinine < 0.2 L Glucose 122 H POC Glucose 123 H Calcium Phosphorus Magnesium Total Creatine Kinase CK-MB (CK-2) Rel Index Troponin T C-Reactive Protein 31.20 H Total Protein Albumin LDL Cholesterol Direct Urine WBC (Auto) Crossmatch 05/17/22 05/17/22 05/18/22 07:53 21:03 05:41 WBC 15.0 H RBC 2.58 L Hgb 7.1 L Hct 22.3 L MCV MCH MCHC RDW 16.1 H Plt Count Lymph % (Auto) [place] % (Auto) Lymph # (Auto) [place] # (Auto) Seg Neutrophils % Seg Neuts % (Manual) Lymphocytes % (Manual) Seg Neutrophils # Seg Neutrophils # Man Lymphocytes # (Manual) PT INR ABG pH ABG pO2 ABG HCO3 ABG O2 Saturation ABG Base Excess ABG Hemoglobin Oxyhemoglobin Sodium Potassium Chloride Carbon Dioxide BUN Creatinine Glucose POC Glucose 106 H 123 H Calcium Phosphorus Magnesium Total Creatine Kinase CK-MB (CK-2) Rel Index Troponin T C-Reactive Protein Total Protein Albumin LDL Cholesterol Direct Urine WBC (Auto) Crossmatch 05/18/22 05/18/22 05/18/22 05:41 13:56 21:08 WBC RBC Hgb Hct MCV MCH MCHC RDW Plt Count Lymph % (Auto) [place] % (Auto) Lymph # (Auto) [place] # (Auto) Seg Neutrophils % Seg Neuts % (Manual) Lymphocytes % (Manual) Seg Neutrophils # Seg Neutrophils # Man Lymphocytes # (Manual) PT INR ABG pH ABG pO2 ABG HCO3 ABG O2 Saturation ABG Base Excess ABG Hemoglobin Oxyhemoglobin Sodium Potassium Chloride 97.9 L Carbon Dioxide BUN 23 H Creatinine < 0.2 L Glucose 128 H POC Glucose 137 H Calcium Phosphorus Magnesium Total Creatine Kinase CK-MB (CK-2) Rel Index Troponin T C-Reactive Protein Total Protein Albumin LDL Cholesterol Direct Urine WBC (Auto) Crossmatch See Detail 05/18/22 05/19/22 05/20/22 23:21 06:10 00:43 WBC 13.5 H RBC 2.53 L Hgb 7.2 L Hct 21.5 L MCV MCH MCHC RDW 16.4 H Plt Count Lymph % (Auto) [place] % (Auto) Lymph # (Auto) [place] # (Auto) Seg Neutrophils % Seg Neuts % (Manual) Lymphocytes % (Manual) Seg Neutrophils # Seg Neutrophils # Man Lymphocytes # (Manual) PT INR ABG pH ABG pO2 70.5 L ABG HCO3 30.3 H ABG O2 Saturation ABG Base Excess 4.9 H ABG Hemoglobin 5.9 L Oxyhemoglobin Sodium Potassium Chloride Carbon Dioxide BUN Creatinine Glucose POC Glucose 151 H Calcium Phosphorus Magnesium Total Creatine Kinase CK-MB (CK-2) Rel Index Troponin T C-Reactive Protein Total Protein Albumin LDL Cholesterol Direct Urine WBC (Auto) Crossmatch 05/20/22 05/20/22 05/20/22 04:40 04:40 07:08 WBC 13.3 H RBC 2.57 L Hgb 7.1 L Hct 22.2 L MCV MCH MCHC RDW 16.3 H Plt Count Lymph % (Auto) [place] % (Auto) Lymph # (Auto) [place] # (Auto) Seg Neutrophils % Seg Neuts % (Manual) Lymphocytes % (Manual) Seg Neutrophils # Seg Neutrophils # Man Lymphocytes # (Manual) PT INR ABG pH ABG pO2 ABG HCO3 ABG O2 Saturation ABG Base Excess ABG Hemoglobin Oxyhemoglobin Sodium 134 L Potassium Chloride Carbon Dioxide BUN Creatinine < 0.2 L Glucose 170 H POC Glucose 174 H Calcium 8.1 L Phosphorus Magnesium Total Creatine Kinase CK-MB (CK-2) Rel Index Troponin T C-Reactive Protein Total Protein Albumin LDL Cholesterol Direct Urine WBC (Auto) Crossmatch 05/20/22 05/21/22 05/21/22 15:08 05:13 22:07 WBC RBC Hgb Hct MCV MCH MCHC RDW Plt Count Lymph % (Auto) [place] % (Auto) Lymph # (Auto) [place] # (Auto) Seg Neutrophils % Seg Neuts % (Manual) Lymphocytes % (Manual) Seg Neutrophils # Seg Neutrophils # Man Lymphocytes # (Manual) PT INR ABG pH ABG pO2 ABG HCO3 ABG O2 Saturation ABG Base Excess ABG Hemoglobin Oxyhemoglobin Sodium Potassium Chloride Carbon Dioxide BUN Creatinine Glucose POC Glucose 114 H 149 H 113 H Calcium Phosphorus Magnesium Total Creatine Kinase CK-MB (CK-2) Rel Index Troponin T C-Reactive Protein Total Protein Albumin LDL Cholesterol Direct Urine WBC (Auto) Crossmatch 05/22/22 05/22/22 05/22/22 05:49 05:49 07:43 WBC RBC 3.05 L Hgb 8.6 L Hct 26.2 L MCV MCH MCHC RDW 16.8 H Plt Count Lymph % (Auto) [place] % (Auto) Lymph # (Auto) [place] # (Auto) Seg Neutrophils % Seg Neuts % (Manual) Lymphocytes % (Manual) Seg Neutrophils # Seg Neutrophils # Man Lymphocytes # (Manual) PT INR ABG pH ABG pO2 ABG HCO3 ABG O2 Saturation ABG Base Excess ABG Hemoglobin Oxyhemoglobin Sodium 131 L Potassium Chloride 93.3 L Carbon Dioxide 32 H BUN Creatinine < 0.2 L Glucose 148 H POC Glucose 145 H Calcium 8.2 L Phosphorus Magnesium Total Creatine Kinase CK-MB (CK-2) Rel Index Troponin T C-Reactive Protein Total Protein Albumin LDL Cholesterol Direct Urine WBC (Auto) Crossmatch 05/22/22 05/22/22 05/23/22 14:09 22:06 07:57 WBC RBC Hgb Hct MCV MCH MCHC RDW Plt Count Lymph % (Auto) [place] % (Auto) Lymph # (Auto) [place] # (Auto) Seg Neutrophils % Seg Neuts % (Manual) Lymphocytes % (Manual) Seg Neutrophils # Seg Neutrophils # Man Lymphocytes # (Manual) PT INR ABG pH ABG pO2 ABG HCO3 ABG O2 Saturation ABG Base Excess ABG Hemoglobin Oxyhemoglobin Sodium Potassium Chloride Carbon Dioxide BUN Creatinine Glucose POC Glucose 136 H 129 H 137 H Calcium Phosphorus Magnesium Total Creatine Kinase CK-MB (CK-2) Rel Index Troponin T C-Reactive Protein Total Protein Albumin LDL Cholesterol Direct Urine WBC (Auto) Crossmatch 05/23/22 05/23/22 05/24/22 14:13 21:29 04:22 WBC RBC 2.89 L Hgb 7.9 L Hct 24.9 L MCV MCH MCHC RDW 17.0 H Plt Count Lymph % (Auto) [place] % (Auto) Lymph # (Auto) [place] # (Auto) Seg Neutrophils % Seg Neuts % (Manual) Lymphocytes % (Manual) Seg Neutrophils # Seg Neutrophils # Man Lymphocytes # (Manual) PT INR ABG pH ABG pO2 ABG HCO3 ABG O2 Saturation ABG Base Excess ABG Hemoglobin Oxyhemoglobin Sodium Potassium Chloride Carbon Dioxide BUN Creatinine Glucose POC Glucose 135 H 132 H Calcium Phosphorus Magnesium Total Creatine Kinase CK-MB (CK-2) Rel Index Troponin T C-Reactive Protein Total Protein Albumin LDL Cholesterol Direct Urine WBC (Auto) Crossmatch 05/24/22 05/24/22 05/24/22 04:22 06:41 12:12 WBC RBC Hgb Hct MCV MCH MCHC RDW Plt Count Lymph % (Auto) [place] % (Auto) Lymph # (Auto) [place] # (Auto) Seg Neutrophils % Seg Neuts % (Manual) Lymphocytes % (Manual) Seg Neutrophils # Seg Neutrophils # Man Lymphocytes # (Manual) PT INR ABG pH ABG pO2 ABG HCO3 ABG O2 Saturation ABG Base Excess ABG Hemoglobin Oxyhemoglobin Sodium 133 L Potassium 5.1 H Chloride 93.7 L Carbon Dioxide 33 H BUN Creatinine < 0.2 L Glucose 144 H POC Glucose 140 H 130 H Calcium 8.3 L Phosphorus Magnesium Total Creatine Kinase CK-MB (CK-2) Rel Index Troponin T C-Reactive Protein Total Protein Albumin LDL Cholesterol Direct Urine WBC (Auto) Crossmatch 05/24/22 05/25/22 05/25/22 21:24 00:44 05:41 WBC RBC Hgb Hct MCV MCH MCHC RDW Plt Count Lymph % (Auto) [place] % (Auto) Lymph # (Auto) [place] # (Auto) Seg Neutrophils % Seg Neuts % (Manual) Lymphocytes % (Manual) Seg Neutrophils # Seg Neutrophils # Man Lymphocytes # (Manual) PT INR ABG pH ABG pO2 ABG HCO3 ABG O2 Saturation ABG Base Excess ABG Hemoglobin Oxyhemoglobin Sodium Potassium Chloride 94.8 L Carbon Dioxide 35 H BUN Creatinine < 0.2 L Glucose 146 H POC Glucose 141 H 142 H Calcium Phosphorus Magnesium Total Creatine Kinase CK-MB (CK-2) Rel Index Troponin T C-Reactive Protein Total Protein Albumin LDL Cholesterol Direct Urine WBC (Auto) Crossmatch 05/25/22 05/25/22 05/26/22 13:51 14:46 00:31 WBC RBC 2.87 L 2.82 L Hgb 7.8 L 7.6 L Hct 24.4 L 23.9 L MCV MCH 27 L 27 L MCHC RDW 17.1 H 17.4 H Plt Count Lymph % (Auto) 11.9 L [place] % (Auto) Lymph # (Auto) [place] # (Auto) Seg Neutrophils % 81.2 H Seg Neuts % (Manual) Lymphocytes % (Manual) Seg Neutrophils # 8.4 H Seg Neutrophils # Man Lymphocytes # (Manual) PT INR ABG pH ABG pO2 ABG HCO3 ABG O2 Saturation ABG Base Excess ABG Hemoglobin Oxyhemoglobin Sodium Potassium Chloride Carbon Dioxide BUN Creatinine Glucose POC Glucose 139 H Calcium Phosphorus Magnesium Total Creatine Kinase CK-MB (CK-2) Rel Index Troponin T C-Reactive Protein Total Protein Albumin LDL Cholesterol Direct Urine WBC (Auto) Crossmatch 05/26/22 05/26/22 05/26/22 00:31 05:02 20:28 WBC RBC Hgb Hct MCV MCH MCHC RDW Plt Count Lymph % (Auto) [place] % (Auto) Lymph # (Auto) [place] # (Auto) Seg Neutrophils % Seg Neuts % (Manual) Lymphocytes % (Manual) Seg Neutrophils # Seg Neutrophils # Man Lymphocytes # (Manual) PT INR ABG pH ABG pO2 ABG HCO3 ABG O2 Saturation ABG Base Excess ABG Hemoglobin Oxyhemoglobin Sodium 134 L Potassium Chloride 92.4 L Carbon Dioxide 37 H BUN Creatinine < 0.2 L Glucose 140 H POC Glucose 111 H 161 H Calcium 8.2 L Phosphorus Magnesium Total Creatine Kinase CK-MB (CK-2) Rel Index Troponin T C-Reactive Protein Total Protein Albumin LDL Cholesterol Direct Urine WBC (Auto) Crossmatch 05/27/22 05:56 WBC RBC Hgb Hct MCV MCH MCHC RDW Plt Count Lymph % (Auto) [place] % (Auto) Lymph # (Auto) [place] # (Auto) Seg Neutrophils % Seg Neuts % (Manual) Lymphocytes % (Manual) Seg Neutrophils # Seg Neutrophils # Man Lymphocytes # (Manual) PT INR ABG pH ABG pO2 ABG HCO3 ABG O2 Saturation ABG Base Excess ABG Hemoglobin Oxyhemoglobin Sodium Potassium Chloride Carbon Dioxide BUN Creatinine Glucose POC Glucose 135 H Calcium Phosphorus Magnesium Total Creatine Kinase CK-MB (CK-2) Rel Index Troponin T C-Reactive Protein Total Protein Albumin LDL Cholesterol Direct Urine WBC (Auto) Crossmatch Allied health notes reviewed: nursing
--- NOTE | 2022-05-27 11:01 | Progress Note ---
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 S/P debridement on 05/19/2022. #Hospital-acquired pneumonia: previously completed abx for Pseudomonas, Enterobacter. #Acute v/s now chronic respiratory failure: on the vent. S/P trach, PEG #ALS: Was on home hospice. #Bacillus bacteremia: likely contaminant. Recs: -Discussed with pharmacy to start Avycaz given CRE in cultures along with fevers. -Would recommend 10 days Avycaz. Could be discharged with this, case management consult for Avycaz 2.5 g every 8 hours until 06/04/2022 -Okay for midline or PICC line on discharge Sameer Ojeda MD [facility] O: [phone] F: [phone] Subjective Date of service: 05/27/22 Principal diagnosis: Ac and ch hypercapnic and hypoxemic Resp Failure; ALS; HCAP; Sepsis; NSTEMI Interval history: Afebrile, no new issues. Objective - Exam Narrative Exam: Physical Exam: Constitutional: awake, on the vent, trach + Head, Ears, Nose: Normocephalic, atraumatic. External ears, nose normal Eyes: Conjunctivae/corneas clear. No icterus. No ptosis. Neck: trach + Cardiovascular: S1, S2 + Respiratory: AE fair bilaterally and equal GI: Soft, bowel sounds +, PEG + Musculoskeletal: No pedal edema, no cyanosis. Skin: sacral wound with dressing, not directly examined Hem/Lymphatic: No palpable cervical or supraclavicular nodes. No lymphangitis Psych: no agitation Neurological: awake, on the vent, exam limited - Constitutional Vitals: Vital Signs Temp Pulse Resp BP Pulse Ox 99.5 F 99 H 25 H 107/63 98 05/27/22 07:10 05/27/22 09:00 05/27/22 09:00 05/27/22 09:00 05/27/22 09:00 Temperature -Last 24 Hours Temperature 99.5 F Temperature 97.6 F Temperature 97.9 F Temperature 99 F Temperature 98.6 F Temperature 98.8 F - Labs CBC & Chem 7: 05/26/22 00:31 05/26/22 00:31 Labs: Abnormal lab results 05/26/22 05/27/22 Range/Units 20:28 05:56 POC Glucose 161 H 135 H (70-105) mg/dL
--- NOTE | 2022-05-27 11:02 | Progress Note ---
<ALEK SMITH - Last Filed: 05/27/22 17:47> Assessment and Plan Assessment and plan: This is a 57-year-old male with known history of ALS, recently hospitalized at [facility] admitted for acute hypoxemic respiratory failure 2/2 pneumonia Hospital Course to Date: 04/03: Intubated and Sedated on versed gtt, RASS-5. CT head/brain noted with no acute intracranial abnormality. Plan to initiated precededx gtt and wean off versed for a RASS goal of 0 to -2. CT chect also reviewed, findings are most consistent with acute bronchopneumonia. Continue empiric IV Abx, vent adjustment per CCM. ID consulted. Continue to F/U on cultures. Titrate pressor for MAP above 65. Medical records requested from [facility]. 04/04: Remains stable on the vent, easily arousable on precedex gtt, not following commands. Plan for SAT/SBT today. PRN analgesia for CPOT greater than 3. Fevers improved, cultures and procal pending. Continue current IV abx, ID also consulted. Remains on low dose pressors, titrate pressors for a MAP above 65. 04/05: Long discussion with family with use of translation phone with CCM regarding goals of care. Family to have meeting amongst themselves and informed care team of decisions. Fentanyl drip added for respiratory distress. Remains on Precedex drip. Antibiotics per ID. Given 2L NS bolus with levophed gtt 04/06: Family discussion with Dr. Grayson for goals of care. CXR shows possible mucus plug, continue CPT as FiO2 is being able to be weaned. Potassium repleted. Weaning fentnyl gtt. 04/07: Ultrasound guided thoracentesis today scheduled, inadequate amount of pleural effusion on so not completed. Patient was started on Levophed overnight which was weaned off this morning however had to be started twice a day. Remains on fentanyl and Precedex. Cardiology discontinued BB and ACEi in setting of hypotension. 04/08: COVID-19 PCR negative. Routine EEG ordered by cardiology which showed ST changes, cardiology aware. They will continue conservative treatment. Repeat troponins 0.030 which are less than admit of 0.048. Dr. Grayson had a long discu ssion with with the use of research interviewer today at bedside and has not made a decision regarding goals of care. Possible consult to surgery for trach/PEG early next week. Continues to require Precedex and fentanyl drip for sedation. Carvedilol/lisinopril discontinued as patient is continuously on Levophed. 04/09: No acute events reported overnight, remains on fentanyl, Precedex and Levophed drips. Dr. Grayson and Dr. Pineda updated family at bedside extensively today. Consulted surgery for trach/PEG. COVID-19 PCR negative. 04/10: Patient noted to have desaturation episodes, FiO2 increased slightly to 35%. Will add Mucomyst. Remains on fentanyl and Precedex. Off of Levophed. Surgery consulted for trach/PEG. 04/11: FiO2 increased over night likely related to hypoxia, continues on fent gtt, weaning precedex gtt as he is also on Seroquel. Will d/w CCM re scheduled or prn oxycodone 04/12: Periods of hypoxia and tachycardia this am. Symptoms improved post deep suction and tracheal lavage, Repeat CXR noted with no significant change. Continue CPT and mucomyst. Plan for possible trach/PEG tomorrow by general surgery. 04/13: Remains stable on the vent. Patient is wake and tracking but does not follow simple commands. No report of hypoxia from overnight, continue CPT and mucomyst. Plan for track and PEG today by General Surgery. Plan for LTAC placement post procedure, case management to arrange. 04/14: VIRGILIO overnight, Trach and PEG postponed for today by general surgery. Plan for LTAC placement post procedure, case management to arrange. 04/15: S/p Trach and PEG. Up to 80% FiO2 this am, this am CXR noted suggesting possible mucus plug. D/W [facility] plan for bronch today. Continue CPT and mucomyst. Plan of care thoroughly discussed with patient's and son (who translated for ) at the bedside. Per , office machines wirer had already discussed the risks and benefits of the procedure yesterday. She verbalized understanding and agreed with procedure and current care plan, consent signed. Okay to use PEG-tube for meds this am, resume TF once okay by general Surgery. Case management to arrange LTAC placement. 04/16: s/p Bronchocopy by [facility]. FiO2 down to 60%, angela 10 this am. This am CXR with moderate improvement. Continue CPT and mucomyst, wean Fio2 as tolerated for SPO2 above 92%. Patient is tolerating TF, advance to goal as ordered. Possible LTAC placement, case management to arrange. 04/17: VIRGILIO overnight. remains stable on the vent, recent CXR and this am ABG n oted. Continue CPT and mucomyst, wean Fio2 as tolerated. 04/18: Remains stable on the vent, Fio2 down to 55% and peep of 8 this am. Continue to wean as tolerated, CPT, and mucomyst. Dsiposition- LTAC placement, case management to arrange. 04/19: No acute events overnight. Continue current management. 04/20: No acute events overnight, continue current management 04/21: Patient had chest ultrasound which showed trace pleural effusions, chest x-ray improved after the addition of Mucomyst yesterday. FiO2 55-65%. No acute events overnight. more interactive today. 04/22: Seroquel changed to BID, FiO2 was increased to 60%. RT increased FIO2 to 100 d/t desaturation into the 80s but was able to wean down. CCM increased PEEP and decreased FiO2. 04/23: CCM increase PEEP, no acute events reported overnight. 04/24: Spoke to RT about decreasing FiO2 as tolerated. No acute events reported overnight. Continue supportive management. 04/25: Weaning as tolerated. no acute events overnight. RT to attempt CPAP again today 04/26: VIRGILIO overnight. Patient failed PSV trial again this morning. Continue s upportive management and daily PST trial. 04/27: Patient failed PSV trial again this am due to episodes of apnea. Continue daily PSV trial as tolerated. Case management to arrange LTAC placement 04/28: Remains stable. Continue daily PSV trial as tolerated. Awaiting approval for LTAC 04/29: VIRGILIO overnight. Continue daily PSV trial. Awaiting approval for LTAC, case management to arrange. 04/30: Patient continue to fail PSV trial. Per case management patient was denied for LTAC, now possible SNF placement. Case managemen to arrange. Continue supportive measures and daily PSV trial as tolerated. 05/01: VIRGILIO overnight. Continue supportive measures and daily PSV trial as tolerated. Possible SNF placement. 05/02: Continue supportive measures and daily PSV trial as tolerated. Possible SNF placement, case management to arrange 05/03: no acute events overnight, CM arranging home vent setup. Family declined SNF. 05/04: RN/RT reports thin secretions, increase in FiO2 for decreased oxygen on ABG. No acute events overnight. 05/05: Family scheduled for teaching session today at 2pm. Increase in FiO2 overnight to 45%. Awaiting vent setup for home care for ventilation secondary to tracheostomy. 05/06: No acute events reported overnight, T-max 100.9. FiO2 45%. Awaiting discharge home with vent when teaching is completed 05/07: No acute events reported overnight, Awaiting discharge home with vent when teaching is completed 05/08: No acute events reported overnight, Awaiting discharge home with vent when teaching is completed 05/09: no acute events reported overnight. Ordered routine labs today. Family continuing with vent training. Anticipate discharge home this week possibly on Tuesday. 05/10: VIRGILIO overnight. Continue current supportive measures and family training at the bedside. Plan for discharge home tomorrow. 05/11: Discharge home today. 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 Patient desated on home vent at max setting. Home vent is not sufficient to support patient's ventilation need. D/w [facility], Dr. Valdivia, who recommend SNF placement at this time. Patient's family notified at the bedside. All questions and concerns were address at this time. Further discussion on alternative placement to be determine and discussed with patient's family and case management today. The respiratory therapist from [employer] is schedule to come at 1400 today for further assessment. 05/13: Tolerating home vent this amd. Recent CXR reviewed with no significant change. Patient's home vent settings were adjusted by [facility]. [employer] respiratory therapist to come again today to make further adjusted to home vent. Plan is to optimize patient's on home vent for possible discharge home. 05/14: Patient continue to have periods of desaturations on home vent. Home vent setting adjusted and it was determined that patient require 12L to 15L of oxygen to maintain SPO2 goal above 88%. Will continue to optimized patient on home vent for possible discharge home on Tuesday. 05/15: Febrile overnight with hypotension and increased O2 requirement. s/p 500cc IVF bolus, and pancultured overnight. This am CXR reviewed, IV Abx- Cefepine initiated for now, pending cultures. 05/16: With persistent fever this morning. Hypotensive again overnight, additional s/p 500cc IVF bolus given. Continue current IV abx, cultures pending. Down to 8L flow on home today. Repeat CXR in the am. Guarded discharge for tomorrow. D/w CCM, patient need to be afebrile for at least 24hrs prior to discharge. Plan discussed with patient's and daughter at the bedside. 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; WOCN consult placed 05-18 ID and gen surg consult 05/19: s/p sacral wound debridement with Dr. Jerome with wound vac and mesh placement. Per Dr. Jerome patient will need to either stay in the hospital 1 week to be taken back to the OR for removal of mesh on wound or may be discharged but will have to visit the wound clinic in 2 weeks. We will alert vocational case manager. No acute events overnight. 05/20: Remains with leukocytosis, wound VAC in place. Discharge requested to be postponed by surgery. Remains on meropenem and vancomycin. No acute events reported overnight. 05/21: IV abx deescalated by ID, no acute events overnight. Continue current management. 05/22: No acute events reported overnight. Hyponatremia noted. Decreased free water flush. We will repeat labs in 48 hours. 05/23: no acute events overnight. 05/24/22 -patient seen today at bedside. Patients eyes open with no purposeful response. i reviewed lab, mar, and v/s. potassium 5.1-kayexalate given times 1- will repeat BMP in am. Pt remain on trach to vent.V/s stable. 05/25/22- Patient has significant history of ALS and as a result has remained on mechanical ventilation. Due to underlying neurological condition patient will require HFCWO vest. The patient has had trials of CoughAssist therapy with flutter wave CPT multiple suctioning while in the hospital but all of these have unfortunately failed to resolve his current condition and will benefit from the HFCWO vest. - patient asleep at the time of assessment. On trach to vent. The plan is to discharge patient on home vent. Reviewed specialist recommendations. We will follow-up with plan of care. Elevated potassium has resolved. Hyponatremia resolved. 05/26: VIRGILIO overnight. Remains afebrile, stable on home vent, VSS. Continue current IV abx, now on Avycaz per ID. 05/27: Remains stable and afebrile. ID recommendations noted, okay to discharge patient home with IV Abx, Avycaz, [id number]. PICC line ordered. Case management to arrange for IV abx at home. Possible discharge home on Tuesday. Assessment and Plan #Acute Hypoxemic Respiratory Failure 12/09 #Acute Bronchopneumonia - Intubated in the ED on 04/02 for hypoxemia and airway protection - 04/14 s/p Trach and PEG - 04/15 CXR reviewed complete opacity of the righ side suggesting possible mucus plug. See report for detail - 04/15 s/p Bronchoscopy by [facility] - Tolerating home vent this am, SPO2 at 95% - CCM consulted, appreciate recommendations - Multiple failed vent wean - Continue CPT and mucomyst per [facility] - VAP bundle addressed - Aspiration precaution HOB above 30 - PRN ABG and CXR per [facility] - Continue SPO2 monitoring for SPO2 goal above 92% #Sepsis #Acute Bronchopneumonia/HCAP #New Stage 4 Sacral Pressure Ulcer - CXR shows moderate to large layering effusion on the right, see report for full detail - CT chest also reviewed, findings are most consistent with acute bronchopneumonia. See report for full detail - Tracheal aspirate with Pseudomonas aeruginosa, Enterobacter aerogenes - 04/02 blood culture with bacillus species, 04/05 blood culture NGTD, repeat Bcultures with NGTD - Completed initiatial IV abx course- S/p merem, Levaquin, Cefepine, and Vanco - persistent fevers hypotension, ID reconsulted - Stage 4 caral pressure ulcer noted, General Surgery consulted - 05/19 s/p wound debridement, mesh placement to wound bed and wound vac placement - wound culture with Ecoli, CRE. Now on Avycaz per ID. - Per ID. okay to discharge with IV Abx, Avycaz 2.5 g every 8 hours X10 days until 06/04/2022. PICC line ordered - F/U on cultures - Daily CBC monitor - Wound care also consulted #Suspect ischemic coronary artery disease #h/o cardiomyopathy - Low BP probably due to hypovolemia vs sedation vs infectious process - s/p Levophed gtt - Elevated troponin possibly a type II troponin leak - Cardiology consulted, appreciated recommendations - Echocardiogram shows ejection fraction of 40 to 45%, mild global hypokinesis of left ventricle - Continue BB - Continue blood pressure monitor per protocol - Maintain MAP above 65 - On heparin SubQ #H/o Amyotrophic Lateral Sclerosis #Acute Metabolic Encephalopathy-resolved #Nonverbal at Baseline - Presented with AMS, per family patient is nonverbal at baseline but responsive - CT head/Brain with no acute intracranial process - Off sedation. Awake and calm - Continue Seroquel per CCM - Avoid benzodiazepine to reduce the possibility of delirium - PRN analgesia for CPOT greater than 3 - Maintenance of sleep-wake cycle #Thrombocytopenia-resolved - Continue to trend plt - On heparin subQ - Monitor for s/s of any active bleeding #Hypernatremia-resolved - Monitor and replace electrolytes as needed - Continue to trend BMP #Protein Caloric Malnutrition - 04/15 s/p EPG-Tube placement - Continue enteral nutrition - Nutrition consulted #GI/DVT Prophylaxis - PPI- Pepcid - Heparin SubQ - SCDs to bilateral lower extremities while in bed #Advance Care Planning - Disease education data, care plan, diagnoses, and prognosis were discussed patient's , Carly Lopez, and patient daughter, Kaylee Warren, who translated for #[phone]. They reported that patient was following at [facility] for his ALS and during recent hospitalization at [facility] they were told nothing else can be offered to patient at this time and patient was discharge home with home hospice and PO morphine. First hospice visit was on , however, patient became unresponsive yesterday and they brought in to the hospital. - Goal of care and code status were also addressed at that time. Family wants to wait for a couple days to see how patient respond to current treatment before making a decision. All questions and concerns were addressed at this time. Patient family acknowledged understanding and agreement with care plan. - Patient remains a FULL CODE status -04/05: Discussion at bedside with interpreting service with Dr. Valdivia and family state they would discuss next steps amongst themselves and let healthcare team know of decisions -04/06: extensive discussion with family ( and son) with Dr. Grayson regarding goals of care -04/08: Extensive discussion with with the use of research interviewer line regarding goals of care; no decision made. Possible consult to surgery for trach/PEG early next week. -04/09: Discussion with and her sister with Dr. Grayson and then with Dr. Pineda-> Consulted surgery for trach/peg -04/30 Insurance Denied LTAC, plan for possible SNF placemenet now. Case management to arrange -05/12: Discharge cancelled yesterday. Patient desated on home vent at max setting. Home vent is not sufficient to support patient's ventilation need. -05/13: Adjustement made to home vent. Plan to optimize patient for possible discharge home. -Possible Discharge on Thursday 05/31 The high probability of a clinically significant, sudden or life threatening det erioration of the [multiple] system(s) required my full and direct attention, intervention and personal management. The aggregate critical care time was [60] minutes. This time is in addition to time spent performing reported procedures but includes the following: [x] Data Review and interpretation [x] Patient assessment and monitoring of vital signs [x] Documentation [x] Medication orders and management Disposition Plan: ICU Total Time Spent with Patient (Minutes): 60 History Interval history: Patient seen and examined at the bedside. Remains stable on home vent, following simple commands. Afebrile, VSS. Sacral wound vac noted with no s/s of any complications. Hospitalist Physical - Physical exam Narrative exam: General appearance: Present: no acute distress, cachectic, other (Trach and on the vent. Awake and tracking, following simple commands) - EENT Eyes: Present: PERRL - Neck Neck: Present: normal ROM - Respiratory Respiratory effort: normal Respiratory: bilateral: rhonchi - Cardiovascular Rhythm: regular Heart Sounds: Present: S1 & S2 - Extremities Extremities: no ischemia, pulses intact, pulses symmetrical Peripheral Pulses: within normal limits - Abdominal General gastrointestinal: soft, non-distended, normal bowel sounds - Integumentary Integumentary: Present: warm, dry - Psychiatric Psychiatric: other (Trach and on the vent. Awake and tracking, following simple commands) - Neurologic Neurologic: other (Trach and on the vent. Awake and tracking, following simple commands) - Allied Health Allied health notes reviewed: nursing, case management - Constitutional Vitals: Temp Pulse Resp BP Pulse Ox 99.5 F 99 H 25 H 107/63 98 05/27/22 07:10 05/27/22 09:00 05/27/22 09:00 05/27/22 09:00 05/27/22 09:00 HEART Score - HEART Score Troponin: Troponin T 0.031 ng/mL (0.00-0.029) H 04/08/22 17:47 Results - Labs CBC & Chem 7: 05/26/22 00:31 05/26/22 00:31 Labs: Laboratory Last Values WBC 9.2 K/mm3 (4.5-11.0) 05/26/22 00:31 RBC 2.82 M/mm3 (3.65-5.03) L 05/26/22 00:31 Hgb 7.6 gm/dl (11.8-15.2) L 05/26/22 00:31 Hct 23.9 % (35.5-45.6) L 05/26/22 00:31 MCV 85 fl (84-94) 05/26/22 00:31 MCH 27 pg (28-32) L 05/26/22 00:31 MCHC 32 % (32-34) 05/26/22 00:31 RDW 17.4 % (13.2-15.2) H 05/26/22 00:31 Plt Count 360 K/mm3 (140-440) 05/26/22 00:31 Lymph % (Auto) 11.9 % (13.4-35.0) L 05/25/22 13:51 Wallace % (Auto) 5.6 % (0.0-7.3) 05/25/22 13:51 Eos % (Auto) 0.9 % (0.0-4.3) 05/25/22 13:51 Baso % (Auto) 0.4 % (0.0-1.8) 05/25/22 13:51 Lymph # (Auto) 1.2 K/mm3 (1.2-5.4) 05/25/22 13:51 Wallace # (Auto) 0.6 K/mm3 (0.0-0.8) 05/25/22 13:51 Eos # (Auto) 0.1 K/mm3 (0.0-0.4) 05/25/22 13:51 Baso # (Auto) 0.0 K/mm3 (0.0-0.1) 05/25/22 13:51 Add Manual Diff Complete 05/17/22 03:41 Total Counted 100 05/17/22 03:41 Seg Neutrophils % 81.2 % (40.0-70.0) H 05/25/22 13:51 Seg Neuts % (Manual) 96.0 % (40.0-70.0) H 05/17/22 03:41 Band Neutrophils % 0 % 05/17/22 03:41 Lymphocytes % (Manual) 1.0 % (13.4-35.0) L 05/17/22 03:41 Reactive Lymphs % (Man) 0 % 05/17/22 03:41 Monocytes % (Manual) 3.0 % (0.0-7.3) 05/17/22 03:41 Eosinophils % (Manual) 0 % (0.0-4.3) 05/17/22 03:41 Basophils % (Manual) 0 % (0.0-1.8) 05/17/22 03:41 Metamyelocytes % 0 % 05/17/22 03:41 Myelocytes % 0 % 05/17/22 03:41 Promyelocytes % 0 % 05/17/22 03:41 Blast Cells % 0 % 05/17/22 03:41 Nucleated RBC % Not Reportable 05/17/22 03:41 Seg Neutrophils # 8.4 K/mm3 (1.8-7.7) H 05/25/22 13:51 Seg Neutrophils # Man 15.6 K/mm3 (1.8-7.7) H 05/17/22 03:41 Band Neutrophils # 0.0 K/mm3 05/17/22 03:41 Lymphocytes # (Manual) 0.2 K/mm3 (1.2-5.4) L 05/17/22 03:41 Abs React Lymphs (Man) 0.0 K/mm3 05/17/22 03:41 Monocytes # (Manual) 0.5 K/mm3 (0.0-0.8) 05/17/22 03:41 Eosinophils # (Manual) 0.0 K/mm3 (0.0-0.4) 05/17/22 03:41 Basophils # (Manual) 0.0 K/mm3 (0.0-0.1) 05/17/22 03:41 Metamyelocytes # 0.0 K/mm3 05/17/22 03:41 Myelocytes # 0.0 K/mm3 05/17/22 03:41 Promyelocytes # 0.0 K/mm3 05/17/22 03:41 Blast Cells # 0.0 K/mm3 05/17/22 03:41 WBC Morphology Not Reportable 05/17/22 03:41 Hypersegmented Neuts Not Reportable 05/17/22 03:41 Hyposegmented Neuts Not Reportable 05/17/22 03:41 Hypogranular Neuts Not Reportable 05/17/22 03:41 Smudge Cells Not Reportable 05/17/22 03:41 Toxic Granulation Not Reportable 05/17/22 03:41 Toxic Vacuolation Not Reportable 05/17/22 03:41 Dohle Bodies Not Reportable 05/17/22 03:41 Pelger-Huet Anomaly Not Reportable 05/17/22 03:41 Terry Rods Not Reportable 05/17/22 03:41 Platelet Estimate Consistent w auto 05/17/22 03:41 Clumped Platelets Not Reportable 05/17/22 03:41 Plt Clumps, EDTA Not Reportable 05/17/22 03:41 Large Platelets Not Reportable 05/17/22 03:41 Giant Platelets Not Reportable 05/17/22 03:41 Platelet Satelliting Not Reportable 05/17/22 03:41 Plt Morphology Comment Not Reportable 05/17/22 03:41 RBC Morphology Not Reportable 05/17/22 03:41 Dimorphic RBCs Not Reportable 05/17/22 03:41 Polychromasia Not Reportable 05/17/22 03:41 Hypochromasia Not Reportable 05/17/22 03:41 Poikilocytosis Not Reportable 05/17/22 03:41 Anisocytosis 1+ 05/17/22 03:41 Microcytosis Not Reportable 05/17/22 03:41 Macrocytosis Not Reportable 05/17/22 03:41 Spherocytes Not Reportable 05/17/22 03:41 Pappenheimer Bodies Not Reportable 05/17/22 03:41 Sickle Cells Not Reportable 05/17/22 03:41 Target Cells Not Reportable 05/17/22 03:41 Tear Drop Cells Not Reportable 05/17/22 03:41 Ovalocytes Not Reportable 05/17/22 03:41 Helmet Cells Not Reportable 05/17/22 03:41 [place] Bodies Not Reportable 05/17/22 03:41 [place] Rings Not Reportable 05/17/22 03:41 [place] Cells Not Reportable 05/17/22 03:41 Bite Cells Not Reportable 05/17/22 03:41 Crenated Cell Not Reportable 05/17/22 03:41 Elliptocytes Not Reportable 05/17/22 03:41 Acanthocytes (Spur) Not Reportable 05/17/22 03:41 Rouleaux Not Reportable 05/17/22 03:41 Hemoglobin C Crystals Not Reportable 05/17/22 03:41 Schistocytes Not Reportable 05/17/22 03:41 Malaria parasites Not Reportable 05/17/22 03:41 [place] Bodies Not Reportable 05/17/22 03:41 Hem Pathologist Commnt No 05/17/22 03:41 PT 13.6 Sec. (12.2-14.9) 04/13/22 04:30 INR 0.94 (0.87-1.13) 04/13/22 04:30 APTT 35.7 Sec. (24.2-36.6) 04/07/22 03:51 ABG pH 7.385 pH Units (7.350-7.450) 05/19/22 06:10 ABG pCO2 51.9 mm Hg 05/19/22 06:10 ABG pO2 70.5 mm Hg (80.0-90.0) L 05/19/22 06:10 ABG HCO3 30.3 mmol/L (20.0-26.0) H 05/19/22 06:10 ABG O2 Saturation 97.6 % (95.0-99.0) 05/19/22 06:10 ABG O2 Content 8.1 (0.0-44) 05/19/22 06:10 ABG Base Excess 4.9 mmol/L (-2.0-3.0) H 05/19/22 06:10 ABG Hemoglobin 5.9 gm/dl (14.0-18.0) L 05/19/22 06:10 ABG Carboxyhemoglobin 1.5 % (0.0-5.0) 05/19/22 06:10 ABG Methemoglobin 0.4 % (0.0-1.5) 05/19/22 06:10 Oxyhemoglobin 95.8 % (95.0-99.0) 05/19/22 06:10 FiO2 55 % 05/19/22 06:10 Sodium 134 mmol/L (137-145) L 05/26/22 00:31 Potassium 4.5 mmol/L (3.6-5.0) 05/26/22 00:31 Chloride 92.4 mmol/L (98-107) L 05/26/22 00:31 Carbon Dioxide 37 mmol/L (22-30) H 05/26/22 00:31 Anion Gap 9 mmol/L 05/26/22 00:31 BUN 16 mg/dL (9-20) 05/26/22 00:31 Creatinine < 0.2 mg/dL (0.8-1.3) L 05/26/22 00:31 Estimated GFR > 60 ml/min 05/26/22 00:31 BUN/Creatinine Ratio 80 % 05/26/22 00:31 Glucose 140 mg/dL (75-100) H 05/26/22 00:31 POC Glucose 135 mg/dL (70-105) H 05/27/22 05:56 Lactic Acid 1.90 mmol/L (0.7-2.0) 04/02/22 19:39 Calcium 8.2 mg/dL (8.4-10.2) L 05/26/22 00:31 Phosphorus 2.70 mg/dL (2.5-4.5) 05/22/22 05:49 Magnesium 1.80 mg/dL (1.7-2.3) 05/22/22 05:49 Total Bilirubin 0.80 mg/dL (0.1-1.2) 04/02/22 19:39 AST 15 units/L (5-40) 04/02/22 19:39 ALT 9 units/L (7-56) 04/02/22 19:39 Alkaline Phosphatase 43 units/L (35-129) 04/02/22 19:39 Total Creatine Kinase 46 units/L (55-170) L 04/08/22 17:47 CK-MB (CK-2) 2.6 ng/mL (0.0-4.0) 04/08/22 17:47 CK-MB (CK-2) Rel Index 5.6 (0-4) H 04/08/22 17:47 Troponin T 0.031 ng/mL (0.00-0.029) H 04/08/22 17:47 C-Reactive Protein 31.20 mg/dL (0.00-1.30) H 05/17/22 03:41 Total Protein 4.6 g/dL (6.3-8.2) L 04/02/22 19:39 Albumin 2.7 g/dL (3.9-5) L 04/02/22 19:39 Albumin/Globulin Ratio 1.4 % 04/02/22 19:39 Triglycerides 80 mg/dL (2-149) 04/02/22 19:39 Cholesterol 94 mg/dL (50-199) 04/02/22 19:39 LDL Cholesterol Direct 27 mg/dL (50-130) L 04/02/22 19:39 HDL Cholesterol 47 mg/dL (40-59) 04/02/22 19:39 Cholesterol/HDL Ratio 2.00 % 04/02/22 19:39 Procalcitonin 1.30 ng/mL (<0.15) 05/17/22 03:41 Urine Color Aracely (Yellow) 05/18/22 03:50 Urine Turbidity Clear (Clear) 05/18/22 03:50 Urine pH 5.0 (5.0-7.0) 05/18/22 03:50 Ur Specific [place] 1.030 (1.003-1.030) 05/18/22 03:50 Urine Protein 30 mg/dl mg/dL (Negative) 05/18/22 03:50 Urine Glucose (UA) Neg mg/dL (Negative) 05/18/22 03:50 Urine Ketones Tr mg/dL (Negative) 05/18/22 03:50 Urine Blood Neg (Negative) 05/18/22 03:50 Urine Nitrite Neg (Negative) 05/18/22 03:50 Urine Bilirubin Neg (Negative) 05/18/22 03:50 Urine Urobilinogen < 2.0 mg/dL (<2.0) 05/18/22 03:50 Ur Leukocyte Esterase Neg (Negative) 05/18/22 03:50 Urine WBC (Auto) 1.0 /HPF (0.0-6.0) 05/18/22 03:50 Urine RBC (Auto) 1.0 /HPF (0.0-6.0) 05/18/22 03:50 U Epithel Cells (Auto) 2.0 /HPF (0-13.0) 05/18/22 03:50 Urine Bacteria (Auto) 1+ /HPF (Negative) 05/18/22 03:50 Hyaline Casts 1 /LPF 04/05/22 17:45 Urine Mucus Few /HPF 05/18/22 03:50 Nasal Screen MRSA (PCR) Negative (Negative) 04/05/22 12:37 Vancomycin Trough 16.2 ug/mL (5.0-20.0) 05/20/22 20:41 Coronavirus (PCR) Negative (Negative) 04/07/22 14:52 Blood Type O POSITIVE 05/18/22 13:56 Antibody Screen Negative 05/18/22 13:56 Crossmatch See Detail 05/18/22 13:56 Perez/IV: Voiding Method Condom Catheter Active Medications - Current Medications Current Medications: Generic Name Dose Route Start Last Admin Trade Name Freq PRN Reason Stop Dose Admin Acetaminophen 650 mg 04/02/22 23:53 05/24/22 00:52 Acetaminophen 325 Mg Tab PO 650 mg Q6H PRN Administration Pain MILD(1-3)/Fever >100.5/FAITH Acetylcysteine 200 mg 05/04/22 20:00 05/27/22 07:55 Acetylcysteine 20% 200 Mg/1 Ml *For Inhalation Use* INHALATION 200 mg Q12HRT SEGUNDO Administration Albuterol 2.5 mg 05/05/22 20:00 05/27/22 07:56 Albuterol 2.5 Mg/3 Ml Nebu IH 2.5 mg Q12HRT SEGUNDO Administration Lipase/Protease/Amylase 1 each 05/20/22 15:35 Lipase 10,500/Protease 25,000/Amylase 43,750 (Units) Dr Patterson FEEDTUBE PRN PRN For Clogged Feeding Tube Baclofen 10 mg 05/19/22 20:00 05/27/22 10:02 Baclofen 10 Mg Tab PO 10 mg TID SEGUNDO Administration Bisacodyl 10 mg 04/07/22 09:44 04/12/22 10:06 Bisacodyl 10 Mg Rect Supp CO 10 mg QDAY PRN Administration Constipation Docusate Sodium 100 mg 05/18/22 22:00 05/27/22 10:02 Docusate Sodium 100 Mg/10 Ml Oral Liqd FEEDTUBE Not Given BID SEGUNDO Famotidine 20 mg 04/06/22 10:00 05/27/22 10:02 Famotidine 20 Mg Tab FEEDTUBE 20 mg BID SEGUNDO Administration Fentanyl 50 mcg 04/04/22 15:56 05/19/22 21:24 Fentanyl 100 Mcg/2 Ml Inj IV 50 mcg Q2HR PRN Administration For CPOT of greater than 3 Heparin Sodium (Porcine) 5,000 unit 04/03/22 06:00 05/27/22 06:01 Heparin 5,000 Unit/1 Ml Vial SUB-Q 5,000 unit Q8HR SEGUNDO Administration CEFTAZIDIME/AVIBACTAM 2.5 gm/ 50 mls @ 25 mls/hr 05/26/22 09:00 05/27/22 04:03 Sodium Chloride IV 25 mls/hr Q8H SEGUNDO Administration Insulin Human Lispro 0 unit 05/05/22 06:00 05/27/22 06:00 Insulin Lispro 100 Unit/Ml SUB-Q Not Given Q8HR [facility] Protocol Magnesium Hydroxide 30 ml 04/02/22 23:53 Magnesium Hydroxide (Mom) Oral Liqd Udc PO Q4H PRN Constipation Metoprolol Tartrate 12.5 mg 05/03/22 13:00 05/27/22 06:02 Metoprolol Tartrate 25 Mg Tab FEEDTUBE Not Given Q6HR [facility] Ondansetron HCl 4 mg 04/02/22 23:53 Ondansetron 4 Mg/2 Ml Inj IV Q8H PRN Nausea And Vomiting Polyethylene Glycol 17 gm 05/18/22 15:00 05/27/22 10:02 Polyethylene Glycol 3350 17 Gm Powder FEEDTUBE Not Given QDAY [facility] Quetiapine Fumarate 50 mg 05/13/22 11:00 05/27/22 10:01 Quetiapine 100 Mg Tab FEEDTUBE 50 mg BID SEGUNDO Administration Scopolamine 1 each 05/12/22 09:00 05/27/22 10:01 Scopolamine Transdermal Patch 72 Hr TD 1 each Q3D SEGUNDO Administration Senna 8.8 mg 05/18/22 22:00 05/26/22 22:00 Sennosides Oral Liqd 8.8 Mg/5 Ml Oral Liqd FEEDTUBE Not Given QHS SEGUNDO Simple Syrup 15 ml 05/20/22 15:35 Simple Syrup 15 Ml FEEDTUBE PRN PRN Hypoglycemia Simple Syrup 30 ml 05/20/22 15:35 Simple Syrup 15 Ml FEEDTUBE PRN PRN Hypoglycemia Sodium Bicarbonate 325 mg 05/20/22 15:35 Sodium Bicarbonate 325 Mg Tab FEEDTUBE PRN PRN For Clogged Feeding Tube Sodium Chloride 10 ml 04/03/22 10:00 05/27/22 10:02 Sodium Chloride 0.9% 10 Ml Flush Syringe IV 10 ml BID SEGUNDO Administration Sodium Chloride 10 ml 04/02/22 23:53 05/16/22 05:10 Sodium Chloride 0.9% 10 Ml Flush Syringe IV 10 ml PRN PRN Administration LINE FLUSH Nutrition/Malnutrition Assess - Dietary Evaluation Nutrition/Malnutrition Findings: Nutrition Notes Start: 04/04/22 13:13 Freq: Status: Active Protocol: Document 05/27/22 09:47 COLLEEN (Rec: 05/27/22 10:19 COLLEEN [id number]) Nutrition Notes Initial or Follow up Reassessment Current Diagnosis Coronary Artery Disease, Decubitus(Pressure Ulcer), Sepsis,Respiratory Failure Other Pertinent Diagnosis HCAP, ALS, Broncopneumonia, NSTEMI, Cardiomyopathy, ... Current Diet TF-Osmolite 1.5 Inderjit @ 55 ml/hr (since D 05/19). Labs/Tests 05/27: Na 134, Cl 92.4, CO2 37 , Crea <0.2, Glu 140, Ca 8.2. Pertinent Medications 05/27: Nutritionaslly unremerkable. Height 5 ft 4.8 in Weight 54.3 kg [place] Body Weight (kg) 61.27 BMI 20.0 Weight change and time frame 5.7 Kg body weight gain reported in 1 week. Weight Status Appropriate Subjective/Other Information RD consult for routine F/U on TF tolerance/continuation. TF continues as prescribed, and well tolerated with no residuals, according to RN notes. Pt continues on Mechanical Ventilation, O2 saturation @ 99%, according to Physical Assessment History notes. Procedure on 05/24: WoundVac changed, wound cleaned, and skin substitute in place, well tolerated, according to Operative Report. Plans to discharge on 05/27, on [facility], Pt tolerating well, according to [facility] notes. Percent of energy/protein needs met: Prescribed TF-Osmolite 1.5 Inderjit @ 55 ml/hr provides for energy/protein needs (1,980 Kcal/83 g) during LOS, 102% Kcal; 100% AA. Burn Absent Trauma Absent GI Symptoms Constipation Difficulty In Swallowing,Chewing Food Allergy No Skin Integrity/Comment Stage IV Sacral Ulcer. Current % PO Other Minimum of two criteria No Fluid Accumulation N/A Reduced Lace Finisher Strength N/A (non-severe) Protein-Calorie Malnutrition N\A #1 Nutrition Diagnosis Inadequate oral intake Diagnosis Progress(for reassessment Continues documentation) Is patient on ventilator? Yes Is Patient Ambulatory and/or Out of Bed No REE-([facility]-confined to bed) 1566.648 Kcal/Kg value to use for calculation 36 Approximate Energy Requirements Using 1955 kcal/Kg Calculation Used for Recommendations Kcal/kg Additional Notes Protein: 1.5-2 g/Kg ABW; 73-98 g/day. Fluids: 1 ml/Kcal, or as per MD. Nutrition Intervention Nutrition Support: Continue TF-Osmolite 1.5 Inderjit @ 55 ml/hr. Flush: 150 ml water Q 4 hr, or as per MD. Kcal 1,980 Protein (gm) 83 Carbohydrates (gm) 269 Fat (gm) 65 Fluid (mL) 1,006 Fiber (gm) 0 % RDI: 102% Kcal; 100% AA. Goal #1 Provide at least 75% of energy /protein needs through Enteral Feeding during LOS. Follow-Up By: 06/10/22 Additional Comments Continue monitoring TF tolerance and BM. <DIXIE BROWN E - Last Filed: 05/28/22 07:36> Assessment and Plan Assessment and plan: I saw and evaluated the patient. I agree with the findings and the plan of care as documented in the Nurse Practitioner's~note, with the following corrections and additions. Hospitalist Physical - Constitutional Vitals: Temp Pulse Resp BP Pulse Ox 97.9 F 127 H 32 H 107/69 92 05/28/22 07:15 05/28/22 07:00 05/28/22 07:00 05/28/22 07:00 05/28/22 07:00 HEART Score - HEART Score Troponin: Troponin T 0.031 ng/mL (0.00-0.029) H 04/08/22 17:47 Results - Labs CBC & Chem 7: 05/28/22 04:20 05/28/22 04:20 Labs: Laboratory Last Values WBC 9.7 K/mm3 (4.5-11.0) 05/28/22 04:20 RBC 2.82 M/mm3 (3.65-5.03) L 05/28/22 04:20 Hgb 7.6 gm/dl (11.8-15.2) L 05/28/22 04:20 Hct 23.6 % (35.5-45.6) L 05/28/22 04:20 MCV 84 fl (84-94) 05/28/22 04:20 MCH 27 pg (28-32) L 05/28/22 04:20 MCHC 32 % (32-34) 05/28/22 04:20 RDW 17.3 % (13.2-15.2) H 05/28/22 04:20 Plt Count 347 K/mm3 (140-440) 05/28/22 04:20 Lymph % (Auto) 11.9 % (13.4-35.0) L 05/25/22 13:51 Wallace % (Auto) 5.6 % (0.0-7.3) 05/25/22 13:51 Eos % (Auto) 0.9 % (0.0-4.3) 05/25/22 13:51 Baso % (Auto) 0.4 % (0.0-1.8) 05/25/22 13:51 Lymph # (Auto) 1.2 K/mm3 (1.2-5.4) 05/25/22 13:51 Wallace # (Auto) 0.6 K/mm3 (0.0-0.8) 05/25/22 13:51 Eos # (Auto) 0.1 K/mm3 (0.0-0.4) 05/25/22 13:51 Baso # (Auto) 0.0 K/mm3 (0.0-0.1) 05/25/22 13:51 Add Manual Diff Complete 05/17/22 03:41 Total Counted 100 05/17/22 03:41 Seg Neutrophils % 81.2 % (40.0-70.0) H 05/25/22 13:51 Seg Neuts % (Manual) 96.0 % (40.0-70.0) H 05/17/22 03:41 Band Neutrophils % 0 % 05/17/22 03:41 Lymphocytes % (Manual) 1.0 % (13.4-35.0) L 05/17/22 03:41 Reactive Lymphs % (Man) 0 % 05/17/22 03:41 Monocytes % (Manual) 3.0 % (0.0-7.3) 05/17/22 03:41 Eosinophils % (Manual) 0 % (0.0-4.3) 05/17/22 03:41 Basophils % (Manual) 0 % (0.0-1.8) 05/17/22 03:41 Metamyelocytes % 0 % 05/17/22 03:41 Myelocytes % 0 % 05/17/22 03:41 Promyelocytes % 0 % 05/17/22 03:41 Blast Cells % 0 % 05/17/22 03:41 Nucleated RBC % Not Reportable 05/17/22 03:41 Seg Neutrophils # 8.4 K/mm3 (1.8-7.7) H 05/25/22 13:51 Seg Neutrophils # Man 15.6 K/mm3 (1.8-7.7) H 05/17/22 03:41 Band Neutrophils # 0.0 K/mm3 05/17/22 03:41 Lymphocytes # (Manual) 0.2 K/mm3 (1.2-5.4) L 05/17/22 03:41 Abs React Lymphs (Man) 0.0 K/mm3 05/17/22 03:41 Monocytes # (Manual) 0.5 K/mm3 (0.0-0.8) 05/17/22 03:41 Eosinophils # (Manual) 0.0 K/mm3 (0.0-0.4) 05/17/22 03:41 Basophils # (Manual) 0.0 K/mm3 (0.0-0.1) 05/17/22 03:41 Metamyelocytes # 0.0 K/mm3 05/17/22 03:41 Myelocytes # 0.0 K/mm3 05/17/22 03:41 Promyelocytes # 0.0 K/mm3 05/17/22 03:41 Blast Cells # 0.0 K/mm3 05/17/22 03:41 WBC Morphology Not Reportable 05/17/22 03:41 Hypersegmented Neuts Not Reportable 05/17/22 03:41 Hyposegmented Neuts Not Reportable 05/17/22 03:41 Hypogranular Neuts Not Reportable 05/17/22 03:41 Smudge Cells Not Reportable 05/17/22 03:41 Toxic Granulation Not Reportable 05/17/22 03:41 Toxic Vacuolation Not Reportable 05/17/22 03:41 Dohle Bodies Not Reportable 05/17/22 03:41 Pelger-Huet Anomaly Not Reportable 05/17/22 03:41 Terry Rods Not Reportable 05/17/22 03:41 Platelet Estimate Consistent w auto 05/17/22 03:41 Clumped Platelets Not Reportable 05/17/22 03:41 Plt Clumps, EDTA Not Reportable 05/17/22 03:41 Large Platelets Not Reportable 05/17/22 03:41 Giant Platelets Not Reportable 05/17/22 03:41 Platelet Satelliting Not Reportable 05/17/22 03:41 Plt Morphology Comment Not Reportable 05/17/22 03:41 RBC Morphology Not Reportable 05/17/22 03:41 Dimorphic RBCs Not Reportable 05/17/22 03:41 Polychromasia Not Reportable 05/17/22 03:41 Hypochromasia Not Reportable 05/17/22 03:41 Poikilocytosis Not Reportable 05/17/22 03:41 Anisocytosis 1+ 05/17/22 03:41 Microcytosis Not Reportable 05/17/22 03:41 Macrocytosis Not Reportable 05/17/22 03:41 Spherocytes Not Reportable 05/17/22 03:41 Pappenheimer Bodies Not Reportable 05/17/22 03:41 Sickle Cells Not Reportable 05/17/22 03:41 Target Cells Not Reportable 05/17/22 03:41 Tear Drop Cells Not Reportable 05/17/22 03:41 Ovalocytes Not Reportable 05/17/22 03:41 Helmet Cells Not Reportable 05/17/22 03:41 [place] Bodies Not Reportable 05/17/22 03:41 [place] Rings Not Reportable 05/17/22 03:41 [place] Cells Not Reportable 05/17/22 03:41 Bite Cells Not Reportable 05/17/22 03:41 Crenated Cell Not Reportable 05/17/22 03:41 Elliptocytes Not Reportable 05/17/22 03:41 Acanthocytes (Spur) Not Reportable 05/17/22 03:41 Rouleaux Not Reportable 05/17/22 03:41 Hemoglobin C Crystals Not Reportable 05/17/22 03:41 Schistocytes Not Reportable 05/17/22 03:41 Malaria parasites Not Reportable 05/17/22 03:41 [place] Bodies Not Reportable 05/17/22 03:41 Hem Pathologist Commnt No 05/17/22 03:41 PT 13.6 Sec. (12.2-14.9) 04/13/22 04:30 INR 0.94 (0.87-1.13) 04/13/22 04:30 APTT 35.7 Sec. (24.2-36.6) 04/07/22 03:51 ABG pH 7.385 pH Units (7.350-7.450) 05/19/22 06:10 ABG pCO2 51.9 mm Hg 05/19/22 06:10 ABG pO2 70.5 mm Hg (80.0-90.0) L 05/19/22 06:10 ABG HCO3 30.3 mmol/L (20.0-26.0) H 05/19/22 06:10 ABG O2 Saturation 97.6 % (95.0-99.0) 05/19/22 06:10 ABG O2 Content 8.1 (0.0-44) 05/19/22 06:10 ABG Base Excess 4.9 mmol/L (-2.0-3.0) H 05/19/22 06:10 ABG Hemoglobin 5.9 gm/dl (14.0-18.0) L 05/19/22 06:10 ABG Carboxyhemoglobin 1.5 % (0.0-5.0) 05/19/22 06:10 ABG Methemoglobin 0.4 % (0.0-1.5) 05/19/22 06:10 Oxyhemoglobin 95.8 % (95.0-99.0) 05/19/22 06:10 FiO2 55 % 05/19/22 06:10 Sodium 135 mmol/L (137-145) L 05/28/22 04:20 Potassium 4.5 mmol/L (3.6-5.0) 05/28/22 04:20 Chloride 94.4 mmol/L (98-107) L 05/28/22 04:20 Carbon Dioxide 35 mmol/L (22-30) H 05/28/22 04:20 Anion Gap 10 mmol/L 05/28/22 04:20 BUN 17 mg/dL (9-20) 05/28/22 04:20 Creatinine < 0.2 mg/dL (0.8-1.3) L 05/28/22 04:20 Estimated GFR > 60 ml/min 05/28/22 04:20 BUN/Creatinine Ratio 85 % 05/28/22 04:20 Glucose 130 mg/dL (75-100) H 05/28/22 04:20 POC Glucose 124 mg/dL (70-105) H 05/28/22 07:26 Lactic Acid 1.90 mmol/L (0.7-2.0) 04/02/22 19:39 Calcium 8.0 mg/dL (8.4-10.2) L 05/28/22 04:20 Phosphorus 2.70 mg/dL (2.5-4.5) 05/22/22 05:49 Magnesium 1.80 mg/dL (1.7-2.3) 05/22/22 05:49 Total Bilirubin 0.80 mg/dL (0.1-1.2) 04/02/22 19:39 AST 15 units/L (5-40) 04/02/22 19:39 ALT 9 units/L (7-56) 04/02/22 19:39 Alkaline Phosphatase 43 units/L (35-129) 04/02/22 19:39 Total Creatine Kinase 46 units/L (55-170) L 04/08/22 17:47 CK-MB (CK-2) 2.6 ng/mL (0.0-4.0) 04/08/22 17:47 CK-MB (CK-2) Rel Index 5.6 (0-4) H 04/08/22 17:47 Troponin T 0.031 ng/mL (0.00-0.029) H 04/08/22 17:47 C-Reactive Protein 31.20 mg/dL (0.00-1.30) H 05/17/22 03:41 Total Protein 4.6 g/dL (6.3-8.2) L 04/02/22 19:39 Albumin 2.7 g/dL (3.9-5) L 04/02/22 19:39 Albumin/Globulin Ratio 1.4 % 04/02/22 19:39 Triglycerides 80 mg/dL (2-149) 04/02/22 19:39 Cholesterol 94 mg/dL (50-199) 04/02/22 19:39 LDL Cholesterol Direct 27 mg/dL (50-130) L 04/02/22 19:39 HDL Cholesterol 47 mg/dL (40-59) 04/02/22 19:39 Cholesterol/HDL Ratio 2.00 % 04/02/22 19:39 Procalcitonin 1.30 ng/mL (<0.15) 05/17/22 03:41 Urine Color Aracely (Yellow) 05/18/22 03:50 Urine Turbidity Clear (Clear) 05/18/22 03:50 Urine pH 5.0 (5.0-7.0) 05/18/22 03:50 Ur Specific [place] 1.030 (1.003-1.030) 05/18/22 03:50 Urine Protein 30 mg/dl mg/dL (Negative) 05/18/22 03:50 Urine Glucose (UA) Neg mg/dL (Negative) 05/18/22 03:50 Urine Ketones Tr mg/dL (Negative) 05/18/22 03:50 Urine Blood Neg (Negative) 05/18/22 03:50 Urine Nitrite Neg (Negative) 05/18/22 03:50 Urine Bilirubin Neg (Negative) 05/18/22 03:50 Urine Urobilinogen < 2.0 mg/dL (<2.0) 05/18/22 03:50 Ur Leukocyte Esterase Neg (Negative) 05/18/22 03:50 Urine WBC (Auto) 1.0 /HPF (0.0-6.0) 05/18/22 03:50 Urine RBC (Auto) 1.0 /HPF (0.0-6.0) 05/18/22 03:50 U Epithel Cells (Auto) 2.0 /HPF (0-13.0) 05/18/22 03:50 Urine Bacteria (Auto) 1+ /HPF (Negative) 05/18/22 03:50 Hyaline Casts 1 /LPF 04/05/22 17:45 Urine Mucus Few /HPF 05/18/22 03:50 Nasal Screen MRSA (PCR) Negative (Negative) 04/05/22 12:37 Vancomycin Trough 16.2 ug/mL (5.0-20.0) 05/20/22 20:41 Coronavirus (PCR) Negative (Negative) 04/07/22 14:52 Blood Type O POSITIVE 05/18/22 13:56 Antibody Screen Negative 05/18/22 13:56 Crossmatch See Detail 05/18/22 13:56 Perez/IV: Voiding Method Condom Catheter Active Medications - Current Medications Current Medications: Generic Name Dose Route Start Last Admin Trade Name Freq PRN Reason Stop Dose Admin Acetaminophen 650 mg 04/02/22 23:53 05/24/22 00:52 Acetaminophen 325 Mg Tab PO 650 mg Q6H PRN Administration Pain MILD(1-3)/Fever >100.5/FAITH Acetylcysteine 200 mg 05/04/22 20:00 05/27/22 21:00 Acetylcysteine 20% 200 Mg/1 Ml *For Inhalation Use* INHALATION Not Given Q12HRT SEGUNDO Albuterol 2.5 mg 05/05/22 20:00 05/27/22 20:59 Albuterol 2.5 Mg/3 Ml Nebu IH 2.5 mg Q12HRT SEGUNDO Administration Lipase/Protease/Amylase 1 each 05/20/22 15:35 Lipase 10,500/Protease 25,000/Amylase 43,750 (Units) Dr Patterson FEEDTUBE PRN PRN For Clogged Feeding Tube Baclofen 10 mg 05/19/22 20:00 05/27/22 20:03 Baclofen 10 Mg Tab PO 10 mg TID SEGUNDO Administration Bisacodyl 10 mg 04/07/22 09:44 04/12/22 10:06 Bisacodyl 10 Mg Rect Supp CO 10 mg QDAY PRN Administration Constipation Docusate Sodium 100 mg 05/18/22 22:00 05/27/22 23:22 Docusate Sodium 100 Mg/10 Ml Oral Liqd FEEDTUBE Not Given BID SEGUNDO Famotidine 20 mg 04/06/22 10:00 05/27/22 23:22 Famotidine 20 Mg Tab FEEDTUBE 20 mg BID SEGUNDO Administration Fentanyl 50 mcg 04/04/22 15:56 05/19/22 21:24 Fentanyl 100 Mcg/2 Ml Inj IV 50 mcg Q2HR PRN Administration For CPOT of greater than 3 Heparin Sodium (Porcine) 5,000 unit 04/03/22 06:00 05/28/22 06:10 Heparin 5,000 Unit/1 Ml Vial SUB-Q 5,000 unit Q8HR SEGUNDO Administration CEFTAZIDIME/AVIBACTAM 2.5 gm/ 50 mls @ 25 mls/hr 05/26/22 09:00 05/28/22 02:33 Sodium Chloride IV 06/05/22 02:59 25 mls/hr Q8H SEGUNDO Administration Insulin Human Lispro 0 unit 05/05/22 06:00 05/28/22 06:07 Insulin Lispro 100 Unit/Ml SUB-Q Not Given Q8HR [facility] Protocol Magnesium Hydroxide 30 ml 04/02/22 23:53 Magnesium Hydroxide (Mom) Oral Liqd Udc PO Q4H PRN Constipation Metoprolol Tartrate 12.5 mg 05/03/22 13:00 05/28/22 07:29 Metoprolol Tartrate 25 Mg Tab FEEDTUBE Not Given Q6HR [facility] Ondansetron HCl 4 mg 04/02/22 23:53 Ondansetron 4 Mg/2 Ml Inj IV Q8H PRN Nausea And Vomiting Polyethylene Glycol 17 gm 05/18/22 15:00 05/27/22 10:02 Polyethylene Glycol 3350 17 Gm Powder FEEDTUBE Not Given QDAY [facility] Quetiapine Fumarate 50 mg 05/13/22 11:00 05/27/22 23:22 Quetiapine 100 Mg Tab FEEDTUBE 50 mg BID SEGUNDO Administration Scopolamine 1 each 05/12/22 09:00 05/27/22 10:01 Scopolamine Transdermal Patch 72 Hr TD 1 each Q3D SEGUNDO Administration Senna 8.8 mg 05/18/22 22:00 05/27/22 23:22 Sennosides Oral Liqd 8.8 Mg/5 Ml Oral Liqd FEEDTUBE Not Given QHS SEGUNDO Simple Syrup 15 ml 05/20/22 15:35 Simple Syrup 15 Ml FEEDTUBE PRN PRN Hypoglycemia Simple Syrup 30 ml 05/20/22 15:35 Simple Syrup 15 Ml FEEDTUBE PRN PRN Hypoglycemia Sodium Bicarbonate 325 mg 05/20/22 15:35 Sodium Bicarbonate 325 Mg Tab FEEDTUBE PRN PRN For Clogged Feeding Tube Sodium Chloride 10 ml 04/03/22 10:00 05/27/22 23:23 Sodium Chloride 0.9% 10 Ml Flush Syringe IV 10 ml BID SEGUNDO Administration Sodium Chloride 10 ml 04/02/22 23:53 05/16/22 05:10 Sodium Chloride 0.9% 10 Ml Flush Syringe IV 10 ml PRN PRN Administration LINE FLUSH Nutrition/Malnutrition Assess - Dietary Evaluation Nutrition/Malnutrition Findings: Nutrition Notes Start: 04/04/22 13:13 Freq: Status: Active Protocol: Document 05/27/22 09:47 COLLEEN (Rec: 05/27/22 10:19 COLLEEN [id number]) Nutrition Notes Initial or Follow up Reassessment Current Diagnosis Coronary Artery Disease, Decubitus(Pressure Ulcer), Sepsis,Respiratory Failure Other Pertinent Diagnosis HCAP, ALS, Broncopneumonia, NSTEMI, Cardiomyopathy, ... Current Diet TF-Osmolite 1.5 Inderjit @ 55 ml/hr (since D 05/19). Labs/Tests 05/27: Na 134, Cl 92.4, CO2 37 , Crea <0.2, Glu 140, Ca 8.2. Pertinent Medications 05/27: Nutritionaslly unremerkable. Height 5 ft 4.8 in Weight 54.3 kg [place] Body Weight (kg) 61.27 BMI 20.0 Weight change and time frame 5.7 Kg body weight gain reported in 1 week. Weight Status Appropriate Subjective/Other Information RD consult for routine F/U on TF tolerance/continuation. TF continues as prescribed, and well tolerated with no residuals, according to RN notes. Pt continues on Mechanical Ventilation, O2 saturation @ 99%, according to Physical Assessment History notes. Procedure on 05/24: WoundVac changed, wound cleaned, and skin substitute in place, well tolerated, according to Operative Report. Plans to discharge on 05/27, on [facility], Pt tolerating well, according to [facility] notes. Percent of energy/protein needs met: Prescribed TF-Osmolite 1.5 Inderjit @ 55 ml/hr provides for energy/protein needs (1,980 Kcal/83 g) during LOS, 102% Kcal; 100% AA. Burn Absent Trauma Absent GI Symptoms Constipation Difficulty In Swallowing,Chewing Food Allergy No Skin Integrity/Comment Stage IV Sacral Ulcer. Current % PO Other Minimum of two criteria No Fluid Accumulation N/A Reduced Lace Finisher Strength N/A (non-severe) Protein-Calorie Malnutrition N\A #1 Nutrition Diagnosis Inadequate oral intake Diagnosis Progress(for reassessment Continues documentation) Is patient on ventilator? Yes Is Patient Ambulatory and/or Out of Bed No REE-([facility]-confined to bed) 1566.648 Kcal/Kg value to use for calculation 36 Approximate Energy Requirements Using 1955 kcal/Kg Calculation Used for Recommendations Kcal/kg Additional Notes Protein: 1.5-2 g/Kg ABW; 73-98 g/day. Fluids: 1 ml/Kcal, or as per MD. Nutrition Intervention Nutrition Support: Continue TF-Osmolite 1.5 Inderjit @ 55 ml/hr. Flush: 150 ml water Q 4 hr, or as per MD. Kcal 1,980 Protein (gm) 83 Carbohydrates (gm) 269 Fat (gm) 65 Fluid (mL) 1,006 Fiber (gm) 0 % RDI: 102% Kcal; 100% AA. Goal #1 Provide at least 75% of energy /protein needs through Enteral Feeding during LOS. Follow-Up By: 06/10/22 Additional Comments Continue monitoring TF tolerance and BM.
[2022-05-27] MEDS: SENNOSIDES ORAL LIQD 8.8 MG/5 ML ORAL LIQD FEEDTUBE SCH (23:22)
[2022-05-28] MEDS: AVIBACTAM IV SCH ×3 (02:33→17:11)
[2022-05-28] MEDS: CEFTAZIDIME IV SCH ×3 (02:33→17:11)
[2022-05-28] MEDS: SODIUM CHLORIDE 0.9% IV SCH ×3 (02:33→17:11)
[2022-05-28] MEDS: METOPROLOL TARTRATE 25 MG TAB FEEDTUBE SCH ×5 (02:34→18:19)
[2022-05-28] MEDS: INSULIN LISPRO 100 UNIT/ML SUB-Q SCH ×4 (02:34→22:48)
[2022-05-28 04:54] LABS: Hematocrit 23.6 % (35.5-45.6); Hemoglobin 7.6 gm/dl (11.8-15.2); Mean Corpuscular HGB Conc 32 % (32-34); Mean Corpuscular Volume 84 fl (84-94); Platelet Count 347 K/mm3 (140-440); Red Blood Count 2.82 M/mm3 (3.65-5.03); Red Cell Distribution Width 17.3 % (13.2-15.2)
[2022-05-28 05:14] LABS: Blood Urea Nitrogen 17 mg/dL (9-20); Hemolysis Index 0
[2022-05-28 05:15] LABS: BUN/Creatinine Ratio 85
[2022-05-28] MEDS: HEPARIN 5,000 UNIT/1 ML VIAL SUB-Q SCH ×3 (06:10→22:46)
[2022-05-28] MEDS: ACETYLCYSTEINE 20% 200 MG/1 ML *FOR INHALATION USE INHALATION SCH ×2 (08:48→19:41)
[2022-05-28] MEDS: ALBUTEROL 2.5 MG/3 ML NEBU IH SCH ×2 (08:48→19:41)
[2022-05-28] MEDS: QUEtiapine 100 MG TAB FEEDTUBE SCH ×2 (09:09→22:46)
[2022-05-28] MEDS: FAMOTIDINE 20 MG TAB FEEDTUBE SCH ×2 (09:09→22:46)
[2022-05-28] MEDS: BACLOFEN 10 MG TAB PO SCH ×3 (09:10→22:46)
[2022-05-28] MEDS: DOCUSATE SODIUM 100 MG/10 ML ORAL LIQD FEEDTUBE SCH ×2 (09:11→22:47)
[2022-05-28] MEDS: POLYETHYLENE GLYCOL 3350 17 GM POWDER FEEDTUBE SCH (09:11)
--- NOTE | 2022-05-28 10:25 | Progress Note ---
<ALEK SMITH - Last Filed: 05/28/22 18:23> Assessment and Plan Assessment and plan: This is a 57-year-old male with known history of ALS, recently hospitalized at [facility] admitted for acute hypoxemic respiratory failure 2/2 pneumonia Hospital Course to Date: 04/03: Intubated and Sedated on versed gtt, RASS-5. CT head/brain noted with no acute intracranial abnormality. Plan to initiated precededx gtt and wean off versed for a RASS goal of 0 to -2. CT chect also reviewed, findings are most consistent with acute bronchopneumonia. Continue empiric IV Abx, vent adjustment per CCM. ID consulted. Continue to F/U on cultures. Titrate pressor for MAP above 65. Medical records requested from [facility]. 04/04: Remains stable on the vent, easily arousable on precedex gtt, not following commands. Plan for SAT/SBT today. PRN analgesia for CPOT greater than 3. Fevers improved, cultures and procal pending. Continue current IV abx, ID also consulted. Remains on low dose pressors, titrate pressors for a MAP above 65. 04/05: Long discussion with family with use of translation phone with CCM regarding goals of care. Family to have meeting amongst themselves and informed care team of decisions. Fentanyl drip added for respiratory distress. Remains on Precedex drip. Antibiotics per ID. Given 2L NS bolus with levophed gtt 04/06: Family discussion with Dr. Grayson for goals of care. CXR shows possible mucus plug, continue CPT as FiO2 is being able to be weaned. Potassium repleted. Weaning fentnyl gtt. 04/07: Ultrasound guided thoracentesis today scheduled, inadequate amount of pleural effusion on so not completed. Patient was started on Levophed overnight which was weaned off this morning however had to be started twice a day. Remains on fentanyl and Precedex. Cardiology discontinued BB and ACEi in setting of hypotension. 04/08: COVID-19 PCR negative. Routine EEG ordered by cardiology which showed ST changes, cardiology aware. They will continue conservative treatment. Repeat troponins 0.030 which are less than admit of 0.048. Dr. Grayson had a long discu ssion with with the use of special projects manager today at bedside and has not made a decision regarding goals of care. Possible consult to surgery for trach/PEG early next week. Continues to require Precedex and fentanyl drip for sedation. Carvedilol/lisinopril discontinued as patient is continuously on Levophed. 04/09: No acute events reported overnight, remains on fentanyl, Precedex and Levophed drips. Dr. Grayson and Dr. Pineda updated family at bedside extensively today. Consulted surgery for trach/PEG. COVID-19 PCR negative. 04/10: Patient noted to have desaturation episodes, FiO2 increased slightly to 35%. Will add Mucomyst. Remains on fentanyl and Precedex. Off of Levophed. Surgery consulted for trach/PEG. 04/11: FiO2 increased over night likely related to hypoxia, continues on fent gtt, weaning precedex gtt as he is also on Seroquel. Will d/w CCM re scheduled or prn oxycodone 04/12: Periods of hypoxia and tachycardia this am. Symptoms improved post deep suction and tracheal lavage, Repeat CXR noted with no significant change. Continue CPT and mucomyst. Plan for possible trach/PEG tomorrow by general surgery. 04/13: Remains stable on the vent. Patient is wake and tracking but does not follow simple commands. No report of hypoxia from overnight, continue CPT and mucomyst. Plan for track and PEG today by General Surgery. Plan for LTAC placement post procedure, case management to arrange. 04/14: VIRGILIO overnight, Trach and PEG postponed for today by general surgery. Plan for LTAC placement post procedure, case management to arrange. 04/15: S/p Trach and PEG. Up to 80% FiO2 this am, this am CXR noted suggesting possible mucus plug. D/W [facility] plan for bronch today. Continue CPT and mucomyst. Plan of care thoroughly discussed with patient's and son (who translated for ) at the bedside. Per , controller coal or ore had already discussed the risks and benefits of the procedure yesterday. She verbalized understanding and agreed with procedure and current care plan, consent signed. Okay to use PEG-tube for meds this am, resume TF once okay by general Surgery. Case management to arrange LTAC placement. 04/16: s/p Bronchocopy by [facility]. FiO2 down to 60%, angela 10 this am. This am CXR with moderate improvement. Continue CPT and mucomyst, wean Fio2 as tolerated for SPO2 above 92%. Patient is tolerating TF, advance to goal as ordered. Possible LTAC placement, case management to arrange. 04/17: VIRGILIO overnight. remains stable on the vent, recent CXR and this am ABG n oted. Continue CPT and mucomyst, wean Fio2 as tolerated. 04/18: Remains stable on the vent, Fio2 down to 55% and peep of 8 this am. Continue to wean as tolerated, CPT, and mucomyst. Dsiposition- LTAC placement, case management to arrange. 04/19: No acute events overnight. Continue current management. 04/20: No acute events overnight, continue current management 04/21: Patient had chest ultrasound which showed trace pleural effusions, chest x-ray improved after the addition of Mucomyst yesterday. FiO2 55-65%. No acute events overnight. more interactive today. 04/22: Seroquel changed to BID, FiO2 was increased to 60%. RT increased FIO2 to 100 d/t desaturation into the 80s but was able to wean down. CCM increased PEEP and decreased FiO2. 04/23: CCM increase PEEP, no acute events reported overnight. 04/24: Spoke to RT about decreasing FiO2 as tolerated. No acute events reported overnight. Continue supportive management. 04/25: Weaning as tolerated. no acute events overnight. RT to attempt CPAP again today 04/26: VIRGILIO overnight. Patient failed PSV trial again this morning. Continue s upportive management and daily PST trial. 04/27: Patient failed PSV trial again this am due to episodes of apnea. Continue daily PSV trial as tolerated. Case management to arrange LTAC placement 04/28: Remains stable. Continue daily PSV trial as tolerated. Awaiting approval for LTAC 04/29: VIRGILIO overnight. Continue daily PSV trial. Awaiting approval for LTAC, case management to arrange. 04/30: Patient continue to fail PSV trial. Per case management patient was denied for LTAC, now possible SNF placement. Case managemen to arrange. Continue supportive measures and daily PSV trial as tolerated. 05/01: VIRGILIO overnight. Continue supportive measures and daily PSV trial as tolerated. Possible SNF placement. 05/02: Continue supportive measures and daily PSV trial as tolerated. Possible SNF placement, case management to arrange 05/03: no acute events overnight, CM arranging home vent setup. Family declined SNF. 05/04: RN/RT reports thin secretions, increase in FiO2 for decreased oxygen on ABG. No acute events overnight. 05/05: Family scheduled for teaching session today at 2pm. Increase in FiO2 overnight to 45%. Awaiting vent setup for home care for ventilation secondary to tracheostomy. 05/06: No acute events reported overnight, T-max 100.9. FiO2 45%. Awaiting discharge home with vent when teaching is completed 05/07: No acute events reported overnight, Awaiting discharge home with vent when teaching is completed 05/08: No acute events reported overnight, Awaiting discharge home with vent when teaching is completed 05/09: no acute events reported overnight. Ordered routine labs today. Family continuing with vent training. Anticipate discharge home this week possibly on Tuesday. 05/10: VIRGILIO overnight. Continue current supportive measures and family training at the bedside. Plan for discharge home tomorrow. 05/11: Discharge home today. linen supply load builder at 12pm 05/12: Discharge cancelled yesterday. Patient desated on home vent at max setting. Home vent is not sufficient to support patient's ventilation need. D/w [facility], Dr. Valdivia, who recommend SNF placement at this time. Patient's family notified at the bedside. All questions and concerns were address at this time. Further discussion on alternative placement to be determine and discussed with patient's family and case management today. The respiratory therapist from [facility] is schedule to come at 1400 today for further assessment. 05/13: Tolerating home vent this amd. Recent CXR reviewed with no significant change. Patient's home vent settings were adjusted by [facility]. [employer] respiratory therapist to come again today to make further adjusted to home vent. Plan is to optimize patient's on home vent for possible discharge home. 05/14: Patient continue to have periods of desaturations on home vent. Home vent setting adjusted and it was determined that patient require 12L to 15L of oxygen to maintain SPO2 goal above 88%. Will continue to optimized patient on home vent for possible discharge home on Tuesday. 05/15: Febrile overnight with hypotension and increased O2 requirement. s/p 500cc IVF bolus, and pancultured overnight. This am CXR reviewed, IV Abx- Cefepine initiated for now, pending cultures. 05/16: With persistent fever this morning. Hypotensive again overnight, additional s/p 500cc IVF bolus given. Continue current IV abx, cultures pending. Down to 8L flow on home today. Repeat CXR in the am. Guarded discharge for tomorrow. D/w CCM, patient need to be afebrile for at least 24hrs prior to discharge. Plan discussed with patient's and daughter at the bedside. 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; WOCN consult placed 05-18 ID and gen surg consult 05/19: s/p sacral wound debridement with Dr. Jerome with wound vac and mesh placement. Per Dr. Jerome patient will need to either stay in the hospital 1 week to be taken back to the OR for removal of mesh on wound or may be discharged but will have to visit the wound clinic in 2 weeks. We will alert clinical case manager. No acute events overnight. 05/20: Remains with leukocytosis, wound VAC in place. Discharge requested to be postponed by surgery. Remains on meropenem and vancomycin. No acute events reported overnight. 05/21: IV abx deescalated by ID, no acute events overnight. Continue current management. 05/22: No acute events reported overnight. Hyponatremia noted. Decreased free water flush. We will repeat labs in 48 hours. 05/23: no acute events overnight. 05/24/22 -patient seen today at bedside. Patients eyes open with no purposeful response. i reviewed lab, mar, and v/s. potassium 5.1-kayexalate given times 1- will repeat BMP in am. Pt remain on trach to vent.V/s stable. 05/25/22- Patient has significant history of ALS and as a result has remained on mechanical ventilation. Due to underlying neurological condition patient will require HFCWO vest. The patient has had trials of CoughAssist therapy with flutter wave CPT multiple suctioning while in the hospital but all of these have unfortunately failed to resolve his current condition and will benefit from the HFCWO vest. - patient asleep at the time of assessment. On trach to vent. The plan is to discharge patient on home vent. Reviewed specialist recommendations. We will follow-up with plan of care. Elevated potassium has resolved. Hyponatremia resolved. 05/26: VIRGILIO overnight. Remains afebrile, stable on home vent, VSS. Continue current IV abx, now on Avycaz per ID. 05/27: Remains stable and afebrile. ID recommendations noted, okay to discharge patient home with IV Abx, Avycaz, [id number]. PICC line ordered. Case management to arrange for IV abx at home. Possible discharge home on Tuesday. 05/28 Back on hospital vent overnight due to increase WOB and hypoxia. Patient is stable on low vent setting this am. Repeat CXR pending. D/W CCM plan to switch and optimize patient on his home vent. Continue CPT, mucomyst, and good pulmonary hygiene. PICC inserted, continue current IV Abx per ID. Possible discharge home on Tuesday. Assessment and Plan #Acute Hypoxemic Respiratory Failure 12/09 #Acute Bronchopneumonia - Intubated in the ED on 04/02 for hypoxemia and airway protection - 04/14 s/p Trach and PEG - 04/15 CXR reviewed complete opacity of the righ side suggesting possible mucus plug. See report for detail - 04/15 s/p Bronchoscopy by [facility] - Back on hospital vent overnight, repeat CXR pending - vent Setting: PRVC-45%,8,14,500 - CCM consulted, appreciate recommendations - Continue CPT, mucomyst, and good pulmonary hygiene - VAP bundle addressed - Aspiration precaution HOB above 30 - PRN ABG and CXR per CCM - Continue SPO2 monitoring for SPO2 goal above 92% #Sepsis #Acute Bronchopneumonia/HCAP #New Stage 4 Sacral Pressure Ulcer - CXR shows moderate to large layering effusion on the right, see report for full detail - CT chest also reviewed, findings are most consistent with acute bron chopneumonia. See report for full detail - Tracheal aspirate with Pseudomonas aeruginosa, Enterobacter aerogenes - 04/02 blood culture with bacillus species, 04/05 blood culture NGTD, repeat Bcultures with NGTD - Completed initiatial IV abx course- S/p merem, Levaquin, Cefepine, and Vanco - persistent fevers hypotension, ID reconsulted - Stage 4 caral pressure ulcer noted, General Surgery consulted - 05/19 s/p wound debridement, mesh placement to wound bed and wound vac placement - wound culture with Ecoli, CRE. Now on Avycaz per ID. - Per ID. okay to discharge with IV Abx, Avycaz 2.5 g every 8 hours X10 days until 06/04/2022. PICC line ordered - F/U on cultures - Daily CBC monitor - Wound care also consulted #Suspect ischemic coronary artery disease #h/o cardiomyopathy - Low BP probably due to hypovolemia vs sedation vs infectious process - s/p Levophed gtt - Elevated troponin possibly a type II troponin leak - Cardiology consulted, appreciated recommendations - Echocardiogram shows ejection fraction of 40 to 45%, mild global hypokinesis of left ventricle - Continue BB - Continue blood pressure monitor per protocol - Maintain MAP above 65 - On heparin SubQ #H/o Amyotrophic Lateral Sclerosis #Acute Metabolic Encephalopathy-resolved #Nonverbal at Baseline - Presented with AMS, per family patient is nonverbal at baseline but responsive - CT head/Brain with no acute intracranial process - Off sedation. Awake and calm - Continue Seroquel per [facility] - Avoid benzodiazepine to reduce the possibility of delirium - PRN analgesia for CPOT greater than 3 - Maintenance of sleep-wake cycle #Thrombocytopenia-resolved - Continue to trend plt - On heparin subQ - Monitor for s/s of any active bleeding #Hypernatremia-resolved - Monitor and replace electrolytes as needed - Continue to trend BMP #Protein Caloric Malnutrition - 04/15 s/p EPG-Tube placement - Continue enteral nutrition - Nutrition consulted #GI/DVT Prophylaxis - PPI- Pepcid - Heparin SubQ - SCDs to bilateral lower extremities while in bed #Advance Care Planning - Disease education data, care plan, diagnoses, and prognosis were discussed patient's , Carly Lopez, and patient daughter, Kaylee Warren, who translated for #[phone]. They reported that patient was following at [facility] for his ALS and during recent hospitalization at [facility] they were told nothing else can be offered to patient at this time and patient was discharge home with home hospice and PO morphine. First hospice visit was on , however, patient became unresponsive yesterday and they brought in to the hospital. - Goal of care and code status were also addressed at that time. Family wants to wait for a couple days to see how patient respond to current treatment before making a decision. All questions and concerns were addressed at this time. Patient family acknowledged understanding and agreement with care plan. - Patient remains a FULL CODE status -04/05: Discussion at bedside with interpreting service with Dr. Valdivia and family state they would discuss next steps amongst themselves and let healthcare team know of decisions -04/06: extensive discussion with family ( and son) with Dr. Grayson regarding goals of care -04/08: Extensive discussion with with the use of special projects manager line regarding goals of care; no decision made. Possible consult to surgery for trach/PEG early next week. -04/09: Discussion with and her sister with Dr. Grayson and then with Dr. Pineda-> Consulted surgery for trach/peg -04/30 Insurance Denied LTAC, plan for possible SNF placemenet now. Case management to arrange -05/12: Discharge cancelled yesterday. Patient desated on home vent at max setting. Home vent is not sufficient to support patient's ventilation need. -05/13: Adjustement made to home vent. Plan to optimize patient for possible discharge home. -Possible Discharge on Thursday 05/31 The high probability of a clinically significant, sudden or life threatening deterioration of the [multiple] system(s) required my full and direct attention, intervention and personal management. The aggregate critical care time was [60] minutes. This time is in addition to time spent performing reported procedures but includes the following: [x] Data Review and interpretation [x] Patient assessment and monitoring of vital signs [x] Documentation [x] Medication orders and management Disposition Plan: ICU Total Time Spent with Patient (Minutes): 60 History Interval history: Patient seen and examined at the bedside. Back on hospital vent this am. Per RN patient was switched to hospital vent from home vent overnight due to hypoxia and increase WOB. Patient is stable on low vent setting this am, VSS. Sacral wound vac noted with no s/s of any complications. Hospitalist Physical - Physical exam Narrative exam: General appearance: Present: no acute distress, cachectic, other (Trach and on the vent. Awake and tracking, following simple commands) - EENT Eyes: Present: PERRL - Neck Neck: Present: normal ROM - Respiratory Respiratory effort: normal Respiratory: bilateral: rhonchi - Cardiovascular Rhythm: regular Heart Sounds: Present: S1 & S2 - Extremities Extremities: no ischemia, pulses intact, pulses symmetrical Peripheral Pulses: within normal limits - Abdominal General gastrointestinal: soft, non-distended, normal bowel sounds - Integumentary Integumentary: Present: warm, dry - Psychiatric Psychiatric: other (Trach and on the vent. Awake and tracking, following simple commands) - Neurologic Neurologic: other (Trach and on the vent. Awake and tracking, following simple commands) - Allied Health Allied health notes reviewed: nursing, case management - Constitutional Vitals: Temp Pulse Resp BP Pulse Ox 97.9 F 123 H 14 108/70 92 05/28/22 07:15 05/28/22 10:00 05/28/22 10:00 05/28/22 10:00 05/28/22 10:00 HEART Score - HEART Score Troponin: Troponin T 0.031 ng/mL (0.00-0.029) H 04/08/22 17:47 Results - Labs CBC & Chem 7: 05/28/22 04:20 05/28/22 04:20 Labs: Laboratory Last Values WBC 9.7 K/mm3 (4.5-11.0) 05/28/22 04:20 RBC 2.82 M/mm3 (3.65-5.03) L 05/28/22 04:20 Hgb 7.6 gm/dl (11.8-15.2) L 05/28/22 04:20 Hct 23.6 % (35.5-45.6) L 05/28/22 04:20 MCV 84 fl (84-94) 05/28/22 04:20 MCH 27 pg (28-32) L 05/28/22 04:20 MCHC 32 % (32-34) 05/28/22 04:20 RDW 17.3 % (13.2-15.2) H 05/28/22 04:20 Plt Count 347 K/mm3 (140-440) 05/28/22 04:20 Lymph % (Auto) 11.9 % (13.4-35.0) L 05/25/22 13:51 [place] % (Auto) 5.6 % (0.0-7.3) 05/25/22 13:51 Eos % (Auto) 0.9 % (0.0-4.3) 05/25/22 13:51 Baso % (Auto) 0.4 % (0.0-1.8) 05/25/22 13:51 Lymph # (Auto) 1.2 K/mm3 (1.2-5.4) 05/25/22 13:51 [place] # (Auto) 0.6 K/mm3 (0.0-0.8) 05/25/22 13:51 Eos # (Auto) 0.1 K/mm3 (0.0-0.4) 05/25/22 13:51 Baso # (Auto) 0.0 K/mm3 (0.0-0.1) 05/25/22 13:51 Add Manual Diff Complete 05/17/22 03:41 Total Counted 100 05/17/22 03:41 Seg Neutrophils % 81.2 % (40.0-70.0) H 05/25/22 13:51 Seg Neuts % (Manual) 96.0 % (40.0-70.0) H 05/17/22 03:41 Band Neutrophils % 0 % 05/17/22 03:41 Lymphocytes % (Manual) 1.0 % (13.4-35.0) L 05/17/22 03:41 Reactive Lymphs % (Man) 0 % 05/17/22 03:41 Monocytes % (Manual) 3.0 % (0.0-7.3) 05/17/22 03:41 Eosinophils % (Manual) 0 % (0.0-4.3) 05/17/22 03:41 Basophils % (Manual) 0 % (0.0-1.8) 05/17/22 03:41 Metamyelocytes % 0 % 05/17/22 03:41 Myelocytes % 0 % 05/17/22 03:41 Promyelocytes % 0 % 05/17/22 03:41 Blast Cells % 0 % 05/17/22 03:41 Nucleated RBC % Not Reportable 05/17/22 03:41 Seg Neutrophils # 8.4 K/mm3 (1.8-7.7) H 05/25/22 13:51 Seg Neutrophils # Man 15.6 K/mm3 (1.8-7.7) H 05/17/22 03:41 Band Neutrophils # 0.0 K/mm3 05/17/22 03:41 Lymphocytes # (Manual) 0.2 K/mm3 (1.2-5.4) L 05/17/22 03:41 Abs React Lymphs (Man) 0.0 K/mm3 05/17/22 03:41 Monocytes # (Manual) 0.5 K/mm3 (0.0-0.8) 05/17/22 03:41 Eosinophils # (Manual) 0.0 K/mm3 (0.0-0.4) 05/17/22 03:41 Basophils # (Manual) 0.0 K/mm3 (0.0-0.1) 05/17/22 03:41 Metamyelocytes # 0.0 K/mm3 05/17/22 03:41 Myelocytes # 0.0 K/mm3 05/17/22 03:41 Promyelocytes # 0.0 K/mm3 05/17/22 03:41 Blast Cells # 0.0 K/mm3 05/17/22 03:41 WBC Morphology Not Reportable 05/17/22 03:41 Hypersegmented Neuts Not Reportable 05/17/22 03:41 Hyposegmented Neuts Not Reportable 05/17/22 03:41 Hypogranular Neuts Not Reportable 05/17/22 03:41 Smudge Cells Not Reportable 05/17/22 03:41 Toxic Granulation Not Reportable 05/17/22 03:41 Toxic Vacuolation Not Reportable 05/17/22 03:41 Dohle Bodies Not Reportable 05/17/22 03:41 Pelger-Huet Anomaly Not Reportable 05/17/22 03:41 Terry Rods Not Reportable 05/17/22 03:41 Platelet Estimate Consistent w auto 05/17/22 03:41 Clumped Platelets Not Reportable 05/17/22 03:41 Plt Clumps, EDTA Not Reportable 05/17/22 03:41 Large Platelets Not Reportable 05/17/22 03:41 Giant Platelets Not Reportable 05/17/22 03:41 Platelet Satelliting Not Reportable 05/17/22 03:41 Plt Morphology Comment Not Reportable 05/17/22 03:41 RBC Morphology Not Reportable 05/17/22 03:41 Dimorphic RBCs Not Reportable 05/17/22 03:41 Polychromasia Not Reportable 05/17/22 03:41 Hypochromasia Not Reportable 05/17/22 03:41 Poikilocytosis Not Reportable 05/17/22 03:41 Anisocytosis 1+ 05/17/22 03:41 Microcytosis Not Reportable 05/17/22 03:41 Macrocytosis Not Reportable 05/17/22 03:41 Spherocytes Not Reportable 05/17/22 03:41 Pappenheimer Bodies Not Reportable 05/17/22 03:41 Sickle Cells Not Reportable 05/17/22 03:41 Target Cells Not Reportable 05/17/22 03:41 Tear Drop Cells Not Reportable 05/17/22 03:41 Ovalocytes Not Reportable 05/17/22 03:41 Helmet Cells Not Reportable 05/17/22 03:41 [place] Bodies Not Reportable 05/17/22 03:41 [place] Rings Not Reportable 05/17/22 03:41 Che[place] Cells Not Reportable 05/17/22 03:41 Bite Cells Not Reportable 05/17/22 03:41 Crenated Cell Not Reportable 05/17/22 03:41 Elliptocytes Not Reportable 05/17/22 03:41 Acanthocytes (Spur) Not Reportable 05/17/22 03:41 Rouleaux Not Reportable 05/17/22 03:41 Hemoglobin C Crystals Not Reportable 05/17/22 03:41 Schistocytes Not Reportable 05/17/22 03:41 Malaria parasites Not Reportable 05/17/22 03:41 [place] Bodies Not Reportable 05/17/22 03:41 Hem Pathologist Commnt No 05/17/22 03:41 PT 13.6 Sec. (12.2-14.9) 04/13/22 04:30 INR 0.94 (0.87-1.13) 04/13/22 04:30 APTT 35.7 Sec. (24.2-36.6) 04/07/22 03:51 ABG pH 7.385 pH Units (7.350-7.450) 05/19/22 06:10 ABG pCO2 51.9 mm Hg 05/19/22 06:10 ABG pO2 70.5 mm Hg (80.0-90.0) L 05/19/22 06:10 ABG HCO3 30.3 mmol/L (20.0-26.0) H 05/19/22 06:10 ABG O2 Saturation 97.6 % (95.0-99.0) 05/19/22 06:10 ABG O2 Content 8.1 (0.0-44) 05/19/22 06:10 ABG Base Excess 4.9 mmol/L (-2.0-3.0) H 05/19/22 06:10 ABG Hemoglobin 5.9 gm/dl (14.0-18.0) L 05/19/22 06:10 ABG Carboxyhemoglobin 1.5 % (0.0-5.0) 05/19/22 06:10 ABG Methemoglobin 0.4 % (0.0-1.5) 05/19/22 06:10 Oxyhemoglobin 95.8 % (95.0-99.0) 05/19/22 06:10 FiO2 55 % 05/19/22 06:10 Sodium 135 mmol/L (137-145) L 05/28/22 04:20 Potassium 4.5 mmol/L (3.6-5.0) 05/28/22 04:20 Chloride 94.4 mmol/L (98-107) L 05/28/22 04:20 Carbon Dioxide 35 mmol/L (22-30) H 05/28/22 04:20 Anion Gap 10 mmol/L 05/28/22 04:20 BUN 17 mg/dL (9-20) 05/28/22 04:20 Creatinine < 0.2 mg/dL (0.8-1.3) L 05/28/22 04:20 Estimated GFR > 60 ml/min 05/28/22 04:20 BUN/Creatinine Ratio 85 % 05/28/22 04:20 Glucose 130 mg/dL (75-100) H 05/28/22 04:20 POC Glucose 124 mg/dL (70-105) H 05/28/22 07:26 Lactic Acid 1.90 mmol/L (0.7-2.0) 04/02/22 19:39 Calcium 8.0 mg/dL (8.4-10.2) L 05/28/22 04:20 Phosphorus 2.70 mg/dL (2.5-4.5) 05/22/22 05:49 Magnesium 1.80 mg/dL (1.7-2.3) 05/22/22 05:49 Total Bilirubin 0.80 mg/dL (0.1-1.2) 04/02/22 19:39 AST 15 units/L (5-40) 04/02/22 19:39 ALT 9 units/L (7-56) 04/02/22 19:39 Alkaline Phosphatase 43 units/L (35-129) 04/02/22 19:39 Total Creatine Kinase 46 units/L (55-170) L 04/08/22 17:47 CK-MB (CK-2) 2.6 ng/mL (0.0-4.0) 04/08/22 17:47 CK-MB (CK-2) Rel Index 5.6 (0-4) H 04/08/22 17:47 Troponin T 0.031 ng/mL (0.00-0.029) H 04/08/22 17:47 C-Reactive Protein 31.20 mg/dL (0.00-1.30) H 05/17/22 03:41 Total Protein 4.6 g/dL (6.3-8.2) L 04/02/22 19:39 Albumin 2.7 g/dL (3.9-5) L 04/02/22 19:39 Albumin/Globulin Ratio 1.4 % 04/02/22 19:39 Triglycerides 80 mg/dL (2-149) 04/02/22 19:39 Cholesterol 94 mg/dL (50-199) 04/02/22 19:39 LDL Cholesterol Direct 27 mg/dL (50-130) L 04/02/22 19:39 HDL Cholesterol 47 mg/dL (40-59) 04/02/22 19:39 Cholesterol/HDL Ratio 2.00 % 04/02/22 19:39 Procalcitonin 1.30 ng/mL (<0.15) 05/17/22 03:41 Urine Color Aracely (Yellow) 05/18/22 03:50 Urine Turbidity Clear (Clear) 05/18/22 03:50 Urine pH 5.0 (5.0-7.0) 05/18/22 03:50 Ur Specific [place] 1.030 (1.003-1.030) 05/18/22 03:50 Urine Protein 30 mg/dl mg/dL (Negative) 05/18/22 03:50 Urine Glucose (UA) Neg mg/dL (Negative) 05/18/22 03:50 Urine Ketones Tr mg/dL (Negative) 05/18/22 03:50 Urine Blood Neg (Negative) 05/18/22 03:50 Urine Nitrite Neg (Negative) 05/18/22 03:50 Urine Bilirubin Neg (Negative) 05/18/22 03:50 Urine Urobilinogen < 2.0 mg/dL (<2.0) 05/18/22 03:50 Ur Leukocyte Esterase Neg (Negative) 05/18/22 03:50 Urine WBC (Auto) 1.0 /HPF (0.0-6.0) 05/18/22 03:50 Urine RBC (Auto) 1.0 /HPF (0.0-6.0) 05/18/22 03:50 U Epithel Cells (Auto) 2.0 /HPF (0-13.0) 05/18/22 03:50 Urine Bacteria (Auto) 1+ /HPF (Negative) 05/18/22 03:50 Hyaline Casts 1 /LPF 04/05/22 17:45 Urine Mucus Few /HPF 05/18/22 03:50 Nasal Screen MRSA (PCR) Negative (Negative) 04/05/22 12:37 Vancomycin Trough 16.2 ug/mL (5.0-20.0) 05/20/22 20:41 Coronavirus (PCR) Negative (Negative) 04/07/22 14:52 Blood Type O POSITIVE 05/18/22 13:56 Antibody Screen Negative 05/18/22 13:56 Crossmatch See Detail 05/18/22 13:56 Perez/IV: Voiding Method Condom Catheter Active Medications - Current Medications Current Medications: Generic Name Dose Route Start Last Admin Trade Name Freq PRN Reason Stop Dose Admin Acetaminophen 650 mg 04/02/22 23:53 05/24/22 00:52 Acetaminophen 325 Mg Tab PO 650 mg Q6H PRN Administration Pain MILD(1-3)/Fever >100.5/FAITH Acetylcysteine 200 mg 05/04/22 20:00 05/28/22 08:48 Acetylcysteine 20% 200 Mg/1 Ml *For Inhalation Use* INHALATION 200 mg Q12HRT SEGUNDO Administration Albuterol 2.5 mg 05/05/22 20:00 05/28/22 08:48 Albuterol 2.5 Mg/3 Ml Nebu IH 2.5 mg Q12HRT SEGUNDO Administration Lipase/Protease/Amylase 1 each 05/20/22 15:35 Lipase 10,500/Protease 25,000/Amylase 43,750 (Units) Dr Cap FEEDTUBE PRN PRN For Clogged Feeding Tube Baclofen 10 mg 05/19/22 20:00 05/28/22 09:10 Baclofen 10 Mg Tab PO 10 mg TID SEGUNDO Administration Bisacodyl 10 mg 04/07/22 09:44 04/12/22 10:06 Bisacodyl 10 Mg Rect Supp OR 10 mg QDAY PRN Administration Constipation Docusate Sodium 100 mg 05/18/22 22:00 05/28/22 09:11 Docusate Sodium 100 Mg/10 Ml Oral Liqd FEEDTUBE Not Given BID SEGUNDO Famotidine 20 mg 04/06/22 10:00 05/28/22 09:09 Famotidine 20 Mg Tab FEEDTUBE 20 mg BID SEGUNDO Administration Fentanyl 50 mcg 04/04/22 15:56 05/19/22 21:24 Fentanyl 100 Mcg/2 Ml Inj IV 50 mcg Q2HR PRN Administration For CPOT of greater than 3 Heparin Sodium (Porcine) 5,000 unit 04/03/22 06:00 05/28/22 06:10 Heparin 5,000 Unit/1 Ml Vial SUB-Q 5,000 unit Q8HR [facility] Administration CEFTAZIDIME/AVIBACTAM 2.5 gm/ 50 mls @ 25 mls/hr 05/26/22 09:00 05/28/22 09:10 Sodium Chloride IV 06/05/22 02:59 25 mls/hr Q8H SEGUNDO Administration Insulin Human Lispro 0 unit 05/05/22 06:00 05/28/22 06:07 Insulin Lispro 100 Unit/Ml SUB-Q Not Given Q8HR [facility] Protocol Magnesium Hydroxide 30 ml 04/02/22 23:53 Magnesium Hydroxide (Mom) Oral Liqd Udc PO Q4H PRN Constipation Metoprolol Tartrate 12.5 mg 05/03/22 13:00 05/28/22 07:29 Metoprolol Tartrate 25 Mg Tab FEEDTUBE Not Given Q6HR [facility] Ondansetron HCl 4 mg 04/02/22 23:53 Ondansetron 4 Mg/2 Ml Inj IV Q8H PRN Nausea And Vomiting Polyethylene Glycol 17 gm 05/18/22 15:00 05/28/22 09:11 Polyethylene Glycol 3350 17 Gm Powder FEEDTUBE Not Given QDAY SEGUNDO Quetiapine Fumarate 50 mg 05/13/22 11:00 05/28/22 09:09 Quetiapine 100 Mg Tab FEEDTUBE 50 mg BID SEGUNDO Administration Scopolamine 1 each 05/12/22 09:00 05/27/22 10:01 Scopolamine Transdermal Patch 72 Hr TD 1 each Q3D SEGUNDO Administration Senna 8.8 mg 05/18/22 22:00 05/27/22 23:22 Sennosides Oral Liqd 8.8 Mg/5 Ml Oral Liqd FEEDTUBE Not Given QHS SEGUNDO Simple Syrup 15 ml 05/20/22 15:35 Simple Syrup 15 Ml FEEDTUBE PRN PRN Hypoglycemia Simple Syrup 30 ml 05/20/22 15:35 Simple Syrup 15 Ml FEEDTUBE PRN PRN Hypoglycemia Sodium Bicarbonate 325 mg 05/20/22 15:35 Sodium Bicarbonate 325 Mg Tab FEEDTUBE PRN PRN For Clogged Feeding Tube Sodium Chloride 10 ml 04/03/22 10:00 05/28/22 09:10 Sodium Chloride 0.9% 10 Ml Flush Syringe IV 10 ml BID SEGUNDO Administration Sodium Chloride 10 ml 04/02/22 23:53 05/16/22 05:10 Sodium Chloride 0.9% 10 Ml Flush Syringe IV 10 ml PRN PRN Administration LINE FLUSH Nutrition/Malnutrition Assess - Dietary Evaluation Nutrition/Malnutrition Findings: Nutrition Notes Start: 04/04/22 13:13 Freq: Status: Active Protocol: Document 05/27/22 09:47 COLLEEN (Rec: 05/27/22 10:19 COLLEEN [id number]) Nutrition Notes Initial or Follow up Reassessment Current Diagnosis Coronary Artery Disease, Decubitus(Pressure Ulcer), Sepsis,Respiratory Failure Other Pertinent Diagnosis HCAP, ALS, Broncopneumonia, NSTEMI, Cardiomyopathy, ... Current Diet TF-Osmolite 1.5 Inderjit @ 55 ml/hr (since D 05/19). Labs/Tests 05/27: Na 134, Cl 92.4, CO2 37 , Crea <0.2, Glu 140, Ca 8.2. Pertinent Medications 05/27: Nutritionaslly unremerkable. Height 5 ft 4.8 in Weight 54.3 kg [place] Body Weight (kg) 61.27 BMI 20.0 Weight change and time frame 5.7 Kg body weight gain reported in 1 week. Weight Status Appropriate Subjective/Other Information RD consult for routine F/U on TF tolerance/continuation. TF continues as prescribed, and well tolerated with no residuals, according to RN notes. Pt continues on Mechanical Ventilation, O2 saturation @ 99%, according to Physical Assessment History notes. Procedure on 05/24: WoundVac changed, wound cleaned, and skin substitute in place, well tolerated, according to Operative Report. Plans to discharge on 05/27, on [facility], Pt tolerating well, according to [facility] notes. Percent of energy/protein needs met: Prescribed TF-Osmolite 1.5 Inderjit @ 55 ml/hr provides for energy/protein needs (1,980 Kcal/83 g) during LOS, 102% Kcal; 100% AA. Burn Absent Trauma Absent GI Symptoms Constipation Difficulty In Swallowing,Chewing Food Allergy No Skin Integrity/Comment Stage IV Sacral Ulcer. Current % PO Other Minimum of two criteria No Fluid Accumulation N/A Reduced Department Clerk Strength N/A (non-severe) Protein-Calorie Malnutrition N\A #1 Nutrition Diagnosis Inadequate oral intake Diagnosis Progress(for reassessment Continues documentation) Is patient on ventilator? Yes Is Patient Ambulatory and/or Out of Bed No REE-([facility]confined to bed) 1566.648 Kcal/Kg value to use for calculation 36 Approximate Energy Requirements Using 1955 kcal/Kg Calculation Used for Recommendations Kcal/kg Additional Notes Protein: 1.5-2 g/Kg ABW; 73-98 g/day. Fluids: 1 ml/Kcal, or as per MD. Nutrition Intervention Nutrition Support: Continue TF-Osmolite 1.5 Inderjit @ 55 ml/hr. Flush: 150 ml water Q 4 hr, or as per MD. Kcal 1,980 Protein (gm) 83 Carbohydrates (gm) 269 Fat (gm) 65 Fluid (mL) 1,006 Fiber (gm) 0 % RDI: 102% Kcal; 100% AA. Goal #1 Provide at least 75% of energy /protein needs through Enteral Feeding during LOS. Follow-Up By: 06/10/22 Additional Comments Continue monitoring TF tolerance and BM. <DIXIE BROWN - Last Filed: 05/29/22 07:27> Assessment and Plan Assessment and plan: I saw and evaluated the patient. I agree with the findings and the plan of care as documented in the Nurse Practitioner's~note, with the following corrections and additions. Hospitalist Physical - Constitutional Vitals: Temp Pulse Resp BP Pulse Ox 98.6 F 92 H 22 93/51 95 05/29/22 04:00 05/29/22 06:00 05/29/22 06:00 05/29/22 06:00 05/29/22 06:00 HEART Score - HEART Score Troponin: Troponin T 0.031 ng/mL (0.00-0.029) H 04/08/22 17:47 Results - Labs CBC & Chem 7: 05/28/22 04:20 05/28/22 04:20 Labs: Laboratory Last Values WBC 9.7 K/mm3 (4.5-11.0) 05/28/22 04:20 RBC 2.82 M/mm3 (3.65-5.03) L 05/28/22 04:20 Hgb 7.6 gm/dl (11.8-15.2) L 05/28/22 04:20 Hct 23.6 % (35.5-45.6) L 05/28/22 04:20 MCV 84 fl (84-94) 05/28/22 04:20 MCH 27 pg (28-32) L 05/28/22 04:20 MCHC 32 % (32-34) 05/28/22 04:20 RDW 17.3 % (13.2-15.2) H 05/28/22 04:20 Plt Count 347 K/mm3 (140-440) 05/28/22 04:20 Lymph % (Auto) 11.9 % (13.4-35.0) L 05/25/22 13:51 [place] % (Auto) 5.6 % (0.0-7.3) 05/25/22 13:51 Eos % (Auto) 0.9 % (0.0-4.3) 05/25/22 13:51 Baso % (Auto) 0.4 % (0.0-1.8) 05/25/22 13:51 Lymph # (Auto) 1.2 K/mm3 (1.2-5.4) 05/25/22 13:51 [place] # (Auto) 0.6 K/mm3 (0.0-0.8) 05/25/22 13:51 Eos # (Auto) 0.1 K/mm3 (0.0-0.4) 05/25/22 13:51 Baso # (Auto) 0.0 K/mm3 (0.0-0.1) 05/25/22 13:51 Add Manual Diff Complete 05/17/22 03:41 Total Counted 100 05/17/22 03:41 Seg Neutrophils % 81.2 % (40.0-70.0) H 05/25/22 13:51 Seg Neuts % (Manual) 96.0 % (40.0-70.0) H 05/17/22 03:41 Band Neutrophils % 0 % 05/17/22 03:41 Lymphocytes % (Manual) 1.0 % (13.4-35.0) L 05/17/22 03:41 Reactive Lymphs % (Man) 0 % 05/17/22 03:41 Monocytes % (Manual) 3.0 % (0.0-7.3) 05/17/22 03:41 Eosinophils % (Manual) 0 % (0.0-4.3) 05/17/22 03:41 Basophils % (Manual) 0 % (0.0-1.8) 05/17/22 03:41 Metamyelocytes % 0 % 05/17/22 03:41 Myelocytes % 0 % 05/17/22 03:41 Promyelocytes % 0 % 05/17/22 03:41 Blast Cells % 0 % 05/17/22 03:41 Nucleated RBC % Not Reportable 05/17/22 03:41 Seg Neutrophils # 8.4 K/mm3 (1.8-7.7) H 05/25/22 13:51 Seg Neutrophils # Man 15.6 K/mm3 (1.8-7.7) H 05/17/22 03:41 Band Neutrophils # 0.0 K/mm3 05/17/22 03:41 Lymphocytes # (Manual) 0.2 K/mm3 (1.2-5.4) L 05/17/22 03:41 Abs React Lymphs (Man) 0.0 K/mm3 05/17/22 03:41 Monocytes # (Manual) 0.5 K/mm3 (0.0-0.8) 05/17/22 03:41 Eosinophils # (Manual) 0.0 K/mm3 (0.0-0.4) 05/17/22 03:41 Basophils # (Manual) 0.0 K/mm3 (0.0-0.1) 05/17/22 03:41 Metamyelocytes # 0.0 K/mm3 05/17/22 03:41 Myelocytes # 0.0 K/mm3 05/17/22 03:41 Promyelocytes # 0.0 K/mm3 05/17/22 03:41 Blast Cells # 0.0 K/mm3 05/17/22 03:41 WBC Morphology Not Reportable 05/17/22 03:41 Hypersegmented Neuts Not Reportable 05/17/22 03:41 Hyposegmented Neuts Not Reportable 05/17/22 03:41 Hypogranular Neuts Not Reportable 05/17/22 03:41 Smudge Cells Not Reportable 05/17/22 03:41 Toxic Granulation Not Reportable 05/17/22 03:41 Toxic Vacuolation Not Reportable 05/17/22 03:41 Dohle Bodies Not Reportable 05/17/22 03:41 Pelger-Huet Anomaly Not Reportable 05/17/22 03:41 Terry Rods Not Reportable 05/17/22 03:41 Platelet Estimate Consistent w auto 05/17/22 03:41 Clumped Platelets Not Reportable 05/17/22 03:41 Plt Clumps, EDTA Not Reportable 05/17/22 03:41 Large Platelets Not Reportable 05/17/22 03:41 Giant Platelets Not Reportable 05/17/22 03:41 Platelet Satelliting Not Reportable 05/17/22 03:41 Plt Morphology Comment Not Reportable 05/17/22 03:41 RBC Morphology Not Reportable 05/17/22 03:41 Dimorphic RBCs Not Reportable 05/17/22 03:41 Polychromasia Not Reportable 05/17/22 03:41 Hypochromasia Not Reportable 05/17/22 03:41 Poikilocytosis Not Reportable 05/17/22 03:41 Anisocytosis 1+ 05/17/22 03:41 Microcytosis Not Reportable 05/17/22 03:41 Macrocytosis Not Reportable 05/17/22 03:41 Spherocytes Not Reportable 05/17/22 03:41 Pappenheimer Bodies Not Reportable 05/17/22 03:41 Sickle Cells Not Reportable 05/17/22 03:41 Target Cells Not Reportable 05/17/22 03:41 Tear Drop Cells Not Reportable 05/17/22 03:41 Ovalocytes Not Reportable 05/17/22 03:41 Helmet Cells Not Reportable 05/17/22 03:41 [place] Bodies Not Reportable 05/17/22 03:41 [place] Rings Not Reportable 05/17/22 03:41 [place] Cells Not Reportable 05/17/22 03:41 Bite Cells Not Reportable 05/17/22 03:41 Crenated Cell Not Reportable 05/17/22 03:41 Elliptocytes Not Reportable 05/17/22 03:41 Acanthocytes (Spur) Not Reportable 05/17/22 03:41 Rouleaux Not Reportable 05/17/22 03:41 Hemoglobin C Crystals Not Reportable 05/17/22 03:41 Schistocytes Not Reportable 05/17/22 03:41 Malaria parasites Not Reportable 05/17/22 03:41 [place] Bodies Not Reportable 05/17/22 03:41 Hem Pathologist Commnt No 05/17/22 03:41 PT 13.6 Sec. (12.2-14.9) 04/13/22 04:30 INR 0.94 (0.87-1.13) 04/13/22 04:30 APTT 35.7 Sec. (24.2-36.6) 04/07/22 03:51 ABG pH 7.385 pH Units (7.350-7.450) 05/19/22 06:10 ABG pCO2 51.9 mm Hg 05/19/22 06:10 ABG pO2 70.5 mm Hg (80.0-90.0) L 05/19/22 06:10 ABG HCO3 30.3 mmol/L (20.0-26.0) H 05/19/22 06:10 ABG O2 Saturation 97.6 % (95.0-99.0) 05/19/22 06:10 ABG O2 Content 8.1 (0.0-44) 05/19/22 06:10 ABG Base Excess 4.9 mmol/L (-2.0-3.0) H 05/19/22 06:10 ABG Hemoglobin 5.9 gm/dl (14.0-18.0) L 05/19/22 06:10 ABG Carboxyhemoglobin 1.5 % (0.0-5.0) 05/19/22 06:10 ABG Methemoglobin 0.4 % (0.0-1.5) 05/19/22 06:10 Oxyhemoglobin 95.8 % (95.0-99.0) 05/19/22 06:10 FiO2 55 % 05/19/22 06:10 Sodium 135 mmol/L (137-145) L 05/28/22 04:20 Potassium 4.5 mmol/L (3.6-5.0) 05/28/22 04:20 Chloride 94.4 mmol/L (98-107) L 05/28/22 04:20 Carbon Dioxide 35 mmol/L (22-30) H 05/28/22 04:20 Anion Gap 10 mmol/L 05/28/22 04:20 BUN 17 mg/dL (9-20) 05/28/22 04:20 Creatinine < 0.2 mg/dL (0.8-1.3) L 05/28/22 04:20 Estimated GFR > 60 ml/min 05/28/22 04:20 BUN/Creatinine Ratio 85 % 05/28/22 04:20 Glucose 130 mg/dL (75-100) H 05/28/22 04:20 POC Glucose 120 mg/dL (70-105) H 05/28/22 21:19 Lactic Acid 1.90 mmol/L (0.7-2.0) 04/02/22 19:39 Calcium 8.0 mg/dL (8.4-10.2) L 05/28/22 04:20 Phosphorus 2.70 mg/dL (2.5-4.5) 05/22/22 05:49 Magnesium 1.80 mg/dL (1.7-2.3) 05/22/22 05:49 Total Bilirubin 0.80 mg/dL (0.1-1.2) 04/02/22 19:39 AST 15 units/L (5-40) 04/02/22 19:39 ALT 9 units/L (7-56) 04/02/22 19:39 Alkaline Phosphatase 43 units/L (35-129) 04/02/22 19:39 Total Creatine Kinase 46 units/L (55-170) L 04/08/22 17:47 CK-MB (CK-2) 2.6 ng/mL (0.0-4.0) 04/08/22 17:47 CK-MB (CK-2) Rel Index 5.6 (0-4) H 04/08/22 17:47 Troponin T 0.031 ng/mL (0.00-0.029) H 04/08/22 17:47 C-Reactive Protein 31.20 mg/dL (0.00-1.30) H 05/17/22 03:41 Total Protein 4.6 g/dL (6.3-8.2) L 04/02/22 19:39 Albumin 2.7 g/dL (3.9-5) L 04/02/22 19:39 Albumin/Globulin Ratio 1.4 % 04/02/22 19:39 Triglycerides 80 mg/dL (2-149) 04/02/22 19:39 Cholesterol 94 mg/dL (50-199) 04/02/22 19:39 LDL Cholesterol Direct 27 mg/dL (50-130) L 04/02/22 19:39 HDL Cholesterol 47 mg/dL (40-59) 04/02/22 19:39 Cholesterol/HDL Ratio 2.00 % 04/02/22 19:39 Procalcitonin 1.30 ng/mL (<0.15) 05/17/22 03:41 Urine Color Aracely (Yellow) 05/18/22 03:50 Urine Turbidity Clear (Clear) 05/18/22 03:50 Urine pH 5.0 (5.0-7.0) 05/18/22 03:50 Ur Specific [place] 1.030 (1.003-1.030) 05/18/22 03:50 Urine Protein 30 mg/dl mg/dL (Negative) 05/18/22 03:50 Urine Glucose (UA) Neg mg/dL (Negative) 05/18/22 03:50 Urine Ketones Tr mg/dL (Negative) 05/18/22 03:50 Urine Blood Neg (Negative) 05/18/22 03:50 Urine Nitrite Neg (Negative) 05/18/22 03:50 Urine Bilirubin Neg (Negative) 05/18/22 03:50 Urine Urobilinogen < 2.0 mg/dL (<2.0) 05/18/22 03:50 Ur Leukocyte Esterase Neg (Negative) 05/18/22 03:50 Urine WBC (Auto) 1.0 /HPF (0.0-6.0) 05/18/22 03:50 Urine RBC (Auto) 1.0 /HPF (0.0-6.0) 05/18/22 03:50 U Epithel Cells (Auto) 2.0 /HPF (0-13.0) 05/18/22 03:50 Urine Bacteria (Auto) 1+ /HPF (Negative) 05/18/22 03:50 Hyaline Casts 1 /LPF 04/05/22 17:45 Urine Mucus Few /HPF 05/18/22 03:50 Nasal Screen MRSA (PCR) Negative (Negative) 04/05/22 12:37 Vancomycin Trough 16.2 ug/mL (5.0-20.0) 05/20/22 20:41 Coronavirus (PCR) Negative (Negative) 04/07/22 14:52 Blood Type O POSITIVE 05/18/22 13:56 Antibody Screen Negative 05/18/22 13:56 Crossmatch See Detail 05/18/22 13:56 Perez/IV: Voiding Method Condom Catheter Active Medications - Current Medications Current Medications: Generic Name Dose Route Start Last Admin Trade Name Freq PRN Reason Stop Dose Admin Acetaminophen 650 mg 04/02/22 23:53 05/24/22 00:52 Acetaminophen 325 Mg Tab PO 650 mg Q6H PRN Administration Pain MILD(1-3)/Fever >100.5/FAITH Acetylcysteine 200 mg 05/04/22 20:00 05/28/22 19:41 Acetylcysteine 20% 200 Mg/1 Ml *For Inhalation Use* INHALATION 200 mg Q12HRT SEGUNDO Administration Albuterol 2.5 mg 05/05/22 20:00 05/28/22 19:41 Albuterol 2.5 Mg/3 Ml Nebu IH 2.5 mg Q12HRT SEGUNDO Administration Lipase/Protease/Amylase 1 each 05/20/22 15:35 Lipase 10,500/Protease 25,000/Amylase 43,750 (Units) Dr [place] FEEDTUBE PRN PRN For Clogged Feeding Tube Baclofen 10 mg 05/19/22 20:00 05/28/22 22:46 Baclofen 10 Mg Tab PO 10 mg TID SEGUNDO Administration Bisacodyl 10 mg 04/07/22 09:44 04/12/22 10:06 Bisacodyl 10 Mg Rect Supp OR 10 mg QDAY PRN Administration Constipation Docusate Sodium 100 mg 05/18/22 22:00 05/28/22 22:47 Docusate Sodium 100 Mg/10 Ml Oral Liqd FEEDTUBE Not Given BID [facility] Famotidine 20 mg 04/06/22 10:00 05/28/22 22:46 Famotidine 20 Mg Tab FEEDTUBE 20 mg BID SEGUNDO Administration Fentanyl 50 mcg 04/04/22 15:56 05/19/22 21:24 Fentanyl 100 Mcg/2 Ml Inj IV 50 mcg Q2HR PRN Administration For CPOT of greater than 3 Heparin Sodium (Porcine) 5,000 unit 04/03/22 06:00 05/29/22 05:45 Heparin 5,000 Unit/1 Ml Vial SUB-Q Not Given Q8HR [facility] CEFTAZIDIME/AVIBACTAM 2.5 gm/ 50 mls @ 25 mls/hr 05/26/22 09:00 05/29/22 03:44 Sodium Chloride IV 06/05/22 02:59 25 mls/hr Q8H [facility] Administration Insulin Human Lispro 0 unit 05/05/22 06:00 05/29/22 05:45 Insulin Lispro 100 Unit/Ml SUB-Q Not Given Q8HR [facility] Protocol Magnesium Hydroxide 30 ml 04/02/22 23:53 Magnesium Hydroxide (Mom) Oral Liqd Udc PO Q4H PRN Constipation Metoprolol Tartrate 12.5 mg 05/03/22 13:00 05/29/22 05:46 Metoprolol Tartrate 25 Mg Tab FEEDTUBE Not Given Q6HR [facility] Ondansetron HCl 4 mg 04/02/22 23:53 Ondansetron 4 Mg/2 Ml Inj IV Q8H PRN Nausea And Vomiting Polyethylene Glycol 17 gm 05/18/22 15:00 05/28/22 09:11 Polyethylene Glycol 3350 17 Gm Powder FEEDTUBE Not Given QDAY [facility] Quetiapine Fumarate 50 mg 05/13/22 11:00 05/28/22 22:46 Quetiapine 100 Mg Tab FEEDTUBE 50 mg BID SEGUNDO Administration Scopolamine 1 each 05/12/22 09:00 05/27/22 10:01 Scopolamine Transdermal Patch 72 Hr TD 1 each Q3D SEGUNDO Administration Senna 8.8 mg 05/18/22 22:00 05/28/22 22:47 Sennosides Oral Liqd 8.8 Mg/5 Ml Oral Liqd FEEDTUBE Not Given QHS SEGUNDO Simple Syrup 15 ml 05/20/22 15:35 Simple Syrup 15 Ml FEEDTUBE PRN PRN Hypoglycemia Simple Syrup 30 ml 05/20/22 15:35 Simple Syrup 15 Ml FEEDTUBE PRN PRN Hypoglycemia Sodium Bicarbonate 325 mg 05/20/22 15:35 Sodium Bicarbonate 325 Mg Tab FEEDTUBE PRN PRN For Clogged Feeding Tube Sodium Chloride 10 ml 04/03/22 10:00 05/28/22 22:47 Sodium Chloride 0.9% 10 Ml Flush Syringe IV 10 ml BID SEGUNDO Administration Sodium Chloride 10 ml 04/02/22 23:53 05/16/22 05:10 Sodium Chloride 0.9% 10 Ml Flush Syringe IV 10 ml PRN PRN Administration LINE FLUSH Nutrition/Malnutrition Assess - Dietary Evaluation Nutrition/Malnutrition Findings: Nutrition Notes Start: 04/04/22 13:13 Freq: Status: Active Protocol: Document 05/27/22 09:47 COLLEEN (Rec: 05/27/22 10:19 COLLEEN [id number]) Nutrition Notes Initial or Follow up Reassessment Current Diagnosis Coronary Artery Disease, Decubitus(Pressure Ulcer), Sepsis,Respiratory Failure Other Pertinent Diagnosis HCAP, ALS, Broncopneumonia, NSTEMI, Cardiomyopathy, ... Current Diet TF-Osmolite 1.5 Inderjit @ 55 ml/hr (since D 05/19). Labs/Tests 05/27: Na 134, Cl 92.4, CO2 37 , Crea <0.2, Glu 140, Ca 8.2. Pertinent Medications 05/27: Nutritionaslly unremerkable. Height 5 ft 4.8 in Weight 54.3 kg [place] Body Weight (kg) 61.27 BMI 20.0 Weight change and time frame 5.7 Kg body weight gain reported in 1 week. Weight Status Appropriate Subjective/Other Information RD consult for routine F/U on TF tolerance/continuation. TF continues as prescribed, and well tolerated with no residuals, according to RN notes. Pt continues on Mechanical Ventilation, O2 saturation @ 99%, according to Physical Assessment History notes. Procedure on 05/24: WoundVac changed, wound cleaned, and skin substitute in place, well tolerated, according to Operative Report. Plans to discharge on 05/27, on [facility], Pt tolerating well, according to [facility] notes. Percent of energy/protein needs met: Prescribed TF-Osmolite 1.5 Inderjit @ 55 ml/hr provides for energy/protein needs (1,980 Kcal/83 g) during LOS, 102% Kcal; 100% AA. Burn Absent Trauma Absent GI Symptoms Constipation Difficulty In Swallowing,Chewing Food Allergy No Skin Integrity/Comment Stage IV Sacral Ulcer. Current % PO Other Minimum of two criteria No Fluid Accumulation N/A Reduced Department Clerk Strength N/A (non-severe) Protein-Calorie Malnutrition N\A #1 Nutrition Diagnosis Inadequate oral intake Diagnosis Progress(for reassessment Continues documentation) Is patient on ventilator? Yes Is Patient Ambulatory and/or Out of Bed No REE-([facility]-confined to bed) 1566.648 Kcal/Kg value to use for calculation 36 Approximate Energy Requirements Using 1955 kcal/Kg Calculation Used for Recommendations Kcal/kg Additional Notes Protein: 1.5-2 g/Kg ABW; 73-98 g/day. Fluids: 1 ml/Kcal, or as per MD. Nutrition Intervention Nutrition Support: Continue TF-Osmolite 1.5 Inderjit @ 55 ml/hr. Flush: 150 ml water Q 4 hr, or as per MD. Kcal 1,980 Protein (gm) 83 Carbohydrates (gm) 269 Fat (gm) 65 Fluid (mL) 1,006 Fiber (gm) 0 % RDI: 102% Kcal; 100% AA. Goal #1 Provide at least 75% of energy /protein needs through Enteral Feeding during LOS. Follow-Up By: 06/10/22 Additional Comments Continue monitoring TF tolerance and BM.
--- NOTE | 2022-05-28 12:01 | XRay Report ---
CHEST 1 VIEW 05/28/2022 10:42 AM INDICATION / CLINICAL INFORMATION: Hypoxia. COMPARISON: 05/24/2022 FINDINGS: SUPPORT DEVICES: Interval placement of a right PICC line with the tip at the cavoatrial junction. Sta ble positioning of tracheostomy tube. HEART / MEDIASTINUM: Stable. LUNGS / PLEURA: Pulmonary opacities appear unchanged. No pneumothorax. ADDITIONAL FINDINGS: No significant additional findings. IMPRESSION: 1. PICC in expected position. 2. Otherwise no significant change. Signer Name: Jamarcus Welch DO Signed: 05/28/2022 11:56 AM Workstation Name: [id number]
--- NOTE | 2022-05-28 16:56 | Progress Note ---
Assessment and Plan Cultures: 04/02/2022 urine culture: No growth 04/02/2022 sputum culture: Pseudomonas, Enterobacter 04/02/2022 blood culture: Bacillus in 1 set 04/05/2022 blood culture: No growth 04/15/2022 right middle lobe bronchial washings: Pseudomonas aeruginosa 05/15/2022 blood culture: No growth 05/17/2022 blood culture: no growth 05/17/2022 sputum culture: Pseudomonas aeruginosa x 2 types 05/19/2022 sacral wound culture: 2x E coli, MDR, CRE 05/19/2022 sacral wound: E coli, Pseudomonas A/P: 57-year-old man with progressive ALS, recently hospitalized at [facility] and was discharged on hospice, readmitted here with: #Sepsis, new fevers and leukocytosis: Etiology pneumonia v/s sacral decubitus ulcer with eschar. S/P debridement on 05/19/2022. #Hospital-acquired pneumonia: previously completed abx for Pseudomonas, Enterobacter. #Acute v/s now chronic respiratory failure: on the vent. S/P trach, PEG #ALS: Was on home hospice. #Bacillus bacteremia: likely contaminant. Recs: -Discussed with pharmacy to start Avycaz given CRE in cultures along with fevers. -Would recommend 10 days Avycaz. Could be discharged with this, case management consult for Avycaz 2.5 g every 8 hours until 06/04/2022 -Informed that his insurance will not pay for Avycaz. Gentamicin is too high risk to manage as an outpatient. Avycaz is effectively his only option. -Okay for midline or PICC line on discharge Sameer Ojeda MD [facility] O: [phone] F: [phone] Subjective Date of service: 05/28/22 Principal diagnosis: Ac and ch hypercapnic and hypoxemic Resp Failure; ALS; HCAP; Sepsis; NSTEMI Interval history: Febrile last night 1 time, afebrile otherwise. White count normal. Objective - Exam Narrative Exam: Physical Exam: Constitutional: awake, on the vent, trach + Head, Ears, Nose: Normocephalic, atraumatic. External ears, nose normal Eyes: Conjunctivae/corneas clear. No icterus. No ptosis. Neck: trach + Cardiovascular: S1, S2 + Respiratory: AE fair bilaterally and equal GI: Soft, bowel sounds +, PEG + Musculoskeletal: No pedal edema, no cyanosis. Skin: sacral wound with dressing, not directly examined Hem/Lymphatic: No palpable cervical or supraclavicular nodes. No lymphangitis Psych: no agitation Neurological: awake, on the vent, exam limited - Constitutional Vitals: Vital Signs Temp Pulse Resp BP Pulse Ox 99.1 F 107 H 23 107/69 99 05/28/22 16:34 05/28/22 16:00 05/28/22 16:00 05/28/22 16:00 05/28/22 16:00 Temperature -Last 24 Hours Temperature 99.1 F Temperature 99.3 F Temperature 97.9 F Temperature 97.6 F Temperature 99.1 F Temperature 100.9 F - Labs CBC & Chem 7: 05/28/22 04:20 05/28/22 04:20 Labs: Abnormal lab results 05/27/22 05/28/22 05/28/22 Range/Units 23:17 04:20 04:20 RBC 2.82 L (3.65-5.03) M/mm3 Hgb 7.6 L (11.8-15.2) gm/dl Hct 23.6 L (35.5-45.6) % MCH 27 L (28-32) pg RDW 17.3 H (13.2-15.2) % Sodium 135 L (137-145) mmol/L Chloride 94.4 L (98-107) mmol/L Carbon Dioxide 35 H (22-30) mmol/L Creatinine < 0.2 L (0.8-1.3) mg/dL Glucose 130 H (75-100) mg/dL POC Glucose 124 H (70-105) mg/dL Calcium 8.0 L (8.4-10.2) mg/dL 05/28/22 05/28/22 Range/Units 07:26 16:20 RBC (3.65-5.03) M/mm3 Hgb (11.8-15.2) gm/dl Hct (35.5-45.6) % MCH (28-32) pg RDW (13.2-15.2) % Sodium (137-145) mmol/L Chloride (98-107) mmol/L Carbon Dioxide (22-30) mmol/L Creatinine (0.8-1.3) mg/dL Glucose (75-100) mg/dL POC Glucose 124 H 138 H (70-105) mg/dL Calcium (8.4-10.2) mg/dL
[2022-05-28] MEDS ORDERED: EPINEPHrine RACEMIC 2.25% 0.5ML NEBU IH ONE (19:25)
[2022-05-28] MEDS: SENNOSIDES ORAL LIQD 8.8 MG/5 ML ORAL LIQD FEEDTUBE SCH (22:47)
[2022-05-29] MEDS: METOPROLOL TARTRATE 25 MG TAB FEEDTUBE SCH ×3 (03:11→21:51)
[2022-05-29] MEDS: AVIBACTAM IV SCH ×3 (03:44→16:07)
[2022-05-29] MEDS: CEFTAZIDIME IV SCH ×3 (03:44→16:07)
[2022-05-29] MEDS: SODIUM CHLORIDE 0.9% IV SCH ×3 (03:44→16:07)
[2022-05-29] MEDS: HEPARIN 5,000 UNIT/1 ML VIAL SUB-Q SCH ×3 (05:45→21:52)
[2022-05-29] MEDS: INSULIN LISPRO 100 UNIT/ML SUB-Q SCH ×2 (05:45→13:29)
[2022-05-29] MEDS: ALBUTEROL 2.5 MG/3 ML NEBU IH SCH ×2 (08:09→20:51)
[2022-05-29] MEDS: ACETYLCYSTEINE 20% 200 MG/1 ML *FOR INHALATION USE INHALATION SCH ×2 (08:09→20:51)
[2022-05-29] MEDS: BACLOFEN 10 MG TAB PO SCH ×3 (08:25→21:52)
--- NOTE | 2022-05-29 09:37 | Progress Note ---
<ALEK SMITH - Last Filed: 05/29/22 16:28> Assessment and Plan Assessment and plan: This is a 57-year-old male with known history of ALS, recently hospitalized at [facility] admitted for acute hypoxemic respiratory failure 2/2 pneumonia Hospital Course to Date: 04/03: Intubated and Sedated on versed gtt, RASS-5. CT head/brain noted with no acute intracranial abnormality. Plan to initiated precededx gtt and wean off versed for a RASS goal of 0 to -2. CT chect also reviewed, findings are most consistent with acute bronchopneumonia. Continue empiric IV Abx, vent adjustment per CCM. ID consulted. Continue to F/U on cultures. Titrate pressor for MAP above 65. Medical records requested from [facility]. 04/04: Remains stable on the vent, easily arousable on precedex gtt, not following commands. Plan for SAT/SBT today. PRN analgesia for CPOT greater than 3. Fevers improved, cultures and procal pending. Continue current IV abx, ID also consulted. Remains on low dose pressors, titrate pressors for a MAP above 65. 04/05: Long discussion with family with use of translation phone with CCM regarding goals of care. Family to have meeting amongst themselves and informed care team of decisions. Fentanyl drip added for respiratory distress. Remains on Precedex drip. Antibiotics per ID. Given 2L NS bolus with levophed gtt 04/06: Family discussion with Dr. Grayson for goals of care. CXR shows possible mucus plug, continue CPT as FiO2 is being able to be weaned. Potassium repleted. Weaning fentnyl gtt. 04/07: Ultrasound guided thoracentesis today scheduled, inadequate amount of pleural effusion on so not completed. Patient was started on Levophed overnight which was weaned off this morning however had to be started twice a day. Remains on fentanyl and Precedex. Cardiology discontinued BB and ACEi in setting of hypotension. 04/08: COVID-19 PCR negative. Routine EEG ordered by cardiology which showed ST changes, cardiology aware. They will continue conservative treatment. Repeat troponins 0.030 which are less than admit of 0.048. Dr. Grayson had a long discu ssion with with the use of timber mill worker today at bedside and has not made a decision regarding goals of care. Possible consult to surgery for trach/PEG early next week. Continues to require Precedex and fentanyl drip for sedation. Carvedilol/lisinopril discontinued as patient is continuously on Levophed. 04/09: No acute events reported overnight, remains on fentanyl, Precedex and Levophed drips. Dr. Grayson and Dr. Pineda updated family at bedside extensively today. Consulted surgery for trach/PEG. COVID-19 PCR negative. 04/10: Patient noted to have desaturation episodes, FiO2 increased slightly to 35%. Will add Mucomyst. Remains on fentanyl and Precedex. Off of Levophed. Surgery consulted for trach/PEG. 04/11: FiO2 increased over night likely related to hypoxia, continues on fent gtt, weaning precedex gtt as he is also on Seroquel. Will d/w CCM re scheduled or prn oxycodone 04/12: Periods of hypoxia and tachycardia this am. Symptoms improved post deep suction and tracheal lavage, Repeat CXR noted with no significant change. Continue CPT and mucomyst. Plan for possible trach/PEG tomorrow by general surgery. 04/13: Remains stable on the vent. Patient is wake and tracking but does not follow simple commands. No report of hypoxia from overnight, continue CPT and mucomyst. Plan for track and PEG today by General Surgery. Plan for LTAC placement post procedure, case management to arrange. 04/14: VIRGILIO overnight, Trach and PEG postponed for today by general surgery. Plan for LTAC placement post procedure, case management to arrange. 04/15: S/p Trach and PEG. Up to 80% FiO2 this am, this am CXR noted suggesting possible mucus plug. D/W [facility] plan for bronch today. Continue CPT and mucomyst. Plan of care thoroughly discussed with patient's and son (who translated for ) at the bedside. Per , electronic integrated systems mechanic had already discussed the risks and benefits of the procedure yesterday. She verbalized understanding and agreed with procedure and current care plan, consent signed. Okay to use PEG-tube for meds this am, resume TF once okay by general Surgery. Case management to arrange LTAC placement. 04/16: s/p Bronchocopy by [facility]. FiO2 down to 60%, angela 10 this am. This am CXR with moderate improvement. Continue CPT and mucomyst, wean Fio2 as tolerated for SPO2 above 92%. Patient is tolerating TF, advance to goal as ordered. Possible LTAC placement, case management to arrange. 04/17: VIRGILIO overnight. remains stable on the vent, recent CXR and this am ABG n oted. Continue CPT and mucomyst, wean Fio2 as tolerated. 04/18: Remains stable on the vent, Fio2 down to 55% and peep of 8 this am. Continue to wean as tolerated, CPT, and mucomyst. Dsiposition- LTAC placement, case management to arrange. 04/19: No acute events overnight. Continue current management. 04/20: No acute events overnight, continue current management 04/21: Patient had chest ultrasound which showed trace pleural effusions, chest x-ray improved after the addition of Mucomyst yesterday. FiO2 55-65%. No acute events overnight. more interactive today. 04/22: Seroquel changed to BID, FiO2 was increased to 60%. RT increased FIO2 to 100 d/t desaturation into the 80s but was able to wean down. CCM increased PEEP and decreased FiO2. 04/23: CCM increase PEEP, no acute events reported overnight. 04/24: Spoke to RT about decreasing FiO2 as tolerated. No acute events reported overnight. Continue supportive management. 04/25: Weaning as tolerated. no acute events overnight. RT to attempt CPAP again today 04/26: VIRGILIO overnight. Patient failed PSV trial again this morning. Continue s upportive management and daily PST trial. 04/27: Patient failed PSV trial again this am due to episodes of apnea. Continue daily PSV trial as tolerated. Case management to arrange LTAC placement 04/28: Remains stable. Continue daily PSV trial as tolerated. Awaiting approval for LTAC 04/29: VIRGILIO overnight. Continue daily PSV trial. Awaiting approval for LTAC, case management to arrange. 04/30: Patient continue to fail PSV trial. Per case management patient was denied for LTAC, now possible SNF placement. Case managemen to arrange. Continue supportive measures and daily PSV trial as tolerated. 05/01: VIRGILIO overnight. Continue supportive measures and daily PSV trial as tolerated. Possible SNF placement. 05/02: Continue supportive measures and daily PSV trial as tolerated. Possible SNF placement, case management to arrange 05/03: no acute events overnight, CM arranging home vent setup. Family declined SNF. 05/04: RN/RT reports thin secretions, increase in FiO2 for decreased oxygen on ABG. No acute events overnight. 05/05: Family scheduled for teaching session today at 2pm. Increase in FiO2 overnight to 45%. Awaiting vent setup for home care for ventilation secondary to tracheostomy. 05/06: No acute events reported overnight, T-max 100.9. FiO2 45%. Awaiting discharge home with vent when teaching is completed 05/07: No acute events reported overnight, Awaiting discharge home with vent when teaching is completed 05/08: No acute events reported overnight, Awaiting discharge home with vent when teaching is completed 05/09: no acute events reported overnight. Ordered routine labs today. Family continuing with vent training. Anticipate discharge home this week possibly on Tuesday. 05/10: VIRGILIO overnight. Continue current supportive measures and family training at the bedside. Plan for discharge home tomorrow. 05/11: Discharge home today. packing room supervisor at 12pm 05/12: Discharge cancelled yesterday. Patient desated on home vent at max setting. Home vent is not sufficient to support patient's ventilation need. D/w [facility], Dr. Valdivia, who recommend SNF placement at this time. Patient's family notified at the bedside. All questions and concerns were address at this time. Further discussion on alternative placement to be determine and discussed with patient's family and case management today. The respiratory therapist from [facility] is schedule to come at 1400 today for further assessment. 05/13: Tolerating home vent this amd. Recent CXR reviewed with no significant change. Patient's home vent settings were adjusted by [facility]. iodine respiratory therapist to come again today to make further adjusted to home vent. Plan is to optimize patient's on home vent for possible discharge home. 05/14: Patient continue to have periods of desaturations on home vent. Home vent setting adjusted and it was determined that patient require 12L to 15L of oxygen to maintain SPO2 goal above 88%. Will continue to optimized patient on home vent for possible discharge home on Tuesday. 05/15: Febrile overnight with hypotension and increased O2 requirement. s/p 500cc IVF bolus, and pancultured overnight. This am CXR reviewed, IV Abx- Cefepine initiated for now, pending cultures. 05/16: With persistent fever this morning. Hypotensive again overnight, additional s/p 500cc IVF bolus given. Continue current IV abx, cultures pending. Down to 8L flow on home today. Repeat CXR in the am. Guarded discharge for tomorrow. D/w CCM, patient need to be afebrile for at least 24hrs prior to discharge. Plan discussed with patient's and daughter at the bedside. 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; WOCN consult placed 05-18 ID and gen surg consult 05/19: s/p sacral wound debridement with Dr. Jerome with wound vac and mesh placement. Per Dr. Jerome patient will need to either stay in the hospital 1 week to be taken back to the OR for removal of mesh on wound or may be discharged but will have to visit the wound clinic in 2 weeks. We will alert business case analyst. No acute events overnight. 05/20: Remains with leukocytosis, wound VAC in place. Discharge requested to be postponed by surgery. Remains on meropenem and vancomycin. No acute events reported overnight. 05/21: IV abx deescalated by ID, no acute events overnight. Continue current management. 05/22: No acute events reported overnight. Hyponatremia noted. Decreased free water flush. We will repeat labs in 48 hours. 05/23: no acute events overnight. 05/24/22 -patient seen today at bedside. Patients eyes open with no purposeful response. i reviewed lab, mar, and v/s. potassium 5.1-kayexalate given times 1- will repeat BMP in am. Pt remain on trach to vent.V/s stable. 05/25/22- Patient has significant history of ALS and as a result has remained on mechanical ventilation. Due to underlying neurological condition patient will require HFCWO vest. The patient has had trials of CoughAssist therapy with flutter wave CPT multiple suctioning while in the hospital but all of these have unfortunately failed to resolve his current condition and will benefit from the HFCWO vest. - patient asleep at the time of assessment. On trach to vent. The plan is to discharge patient on home vent. Reviewed specialist recommendations. We will follow-up with plan of care. Elevated potassium has resolved. Hyponatremia resolved. 05/26: VIRGILIO overnight. Remains afebrile, stable on home vent, VSS. Continue current IV abx, now on Avycaz per ID. 05/27: Remains stable and afebrile. ID recommendations noted, okay to discharge patient home with IV Abx, Avycaz, [id number]. PICC line ordered. Case management to arrange for IV abx at home. Possible discharge home on Tuesday. 05/28 Back on hospital vent overnight due to increase WOB and hypoxia. Patient is stable on low vent setting this am. Repeat CXR pending. D/W CCM plan to switch and optimize patient on his home vent. Continue CPT, mucomyst, and good pulmonary hygiene. PICC inserted, continue current IV Abx per ID. Possible discharge home on Tuesday. 05/29: Back on home vent, stable on 10L flow this am. Repeat CXR noted with no significant change. Continue current supportive care. Case management note and ID recommendations noted. Home infusion IV Abx not covered by insurance, alba ealed in process. Case management to F/U. Guarded discharge for Tuesday. Assessment and Plan #Acute Hypoxemic Respiratory Failure 2/ #Acute Bronchopneumonia - Intubated in the ED on 04/02 for hypoxemia and airway protection - /8 s/p Trach and PEG - / s/p Bronchoscopy by CCM - Back on home vent, repeat CXR unchanged - vent Setting:TV:500, peep 12, rate 14, @10L flow - CCM consulted, appreciate recommendations - Continue CPT, mucomyst, and good pulmonary hygiene - VAP bundle addressed - Aspiration precaution HOB above 30 - PRN ABG and CXR per CCM - Continue SPO2 monitoring for SPO2 goal above 92% #Sepsis #Acute Bronchopneumonia/HCAP #New Stage 4 Sacral Pressure Ulcer - CXR shows moderate to large layering effusion on the right, see report for full detail - CT chest also reviewed, findings are most consistent with acute bronchopneumonia. See report for full detail - Tracheal aspirate with Pseudomonas aeruginosa, Enterobacter aerogenes - 04/02 blood culture with bacillus species, 04/05 blood culture NGTD, repeat Bcultures with NGTD - Completed initiatial IV abx course- S/p merem, Levaquin, Cefepine, and Vanco - persistent fevers hypotension, ID reconsulted - Stage 4 caral pressure ulcer noted, General Surgery consulted - 05/19 s/p wound debridement, mesh placement to wound bed and wound vac placement - wound culture with Ecoli, CRE. Now on Avycaz per ID. - Per ID. okay to discharge with IV Abx, Avycaz 2.5 g every 8 hours X10 days until 06/04/2022. PICC line placed - F/U on cultures - Daily CBC monitor - Wound care also consulted #Suspect ischemic coronary artery disease #h/o cardiomyopathy - Low BP probably due to hypovolemia vs sedation vs infectious process - s/p Levophed gtt - Elevated troponin possibly a type II troponin leak - Cardiology consulted, appreciated recommendations - Echocardiogram shows ejection fraction of 40 to 45%, mild global hypokinesis of left ventricle - Continue BB, reduced to BID due to low BP - Continue blood pressure monitor per protocol - Maintain MAP above 65 - On heparin SubQ #H/o Amyotrophic Lateral Sclerosis #Acute Metabolic Encephalopathy-resolved #Nonverbal at Baseline - Presented with AMS, per family patient is nonverbal at baseline but responsive - CT head/Brain with no acute intracranial process - Off sedation. Awake and calm - Continue Seroquel per [facility] - Avoid benzodiazepine to reduce the possibility of delirium - PRN analgesia for CPOT greater than 3 - Maintenance of sleep-wake cycle #Thrombocytopenia-resolved - Continue to trend plt - On heparin subQ - Monitor for s/s of any active bleeding #Hypernatremia-resolved - Monitor and replace electrolytes as needed - Continue to trend BMP #Protein Caloric Malnutrition - 04/15 s/p EPG-Tube placement - Continue enteral nutrition - Nutrition consulted #GI/DVT Prophylaxis - PPI- Pepcid - Heparin SubQ - SCDs to bilateral lower extremities while in bed #Advance Care Planning - Disease education data, care plan, diagnoses, and prognosis were discussed patient's , Carly oLpez, and patient daughter, Kaylee Warren, who translated for #[phone]. They reported that patient was following at [facility] for his ALS and during recent hospitalization at [facility] they were told nothing else can be offered to patient at this time and patient was discharge home with home hospice and PO morphine. First hospice visit was on , however, patient became unresponsive yesterday and they brought in to the hospital. - Goal of care and code status were also addressed at that time. Family wants to wait for a couple days to see how patient respond to current treatment before ma nikia a decision. All questions and concerns were addressed at this time. Patient family acknowledged understanding and agreement with care plan. - Patient remains a FULL CODE status -04/05: Discussion at bedside with interpreting service with Dr. Valdivia and family state they would discuss next steps amongst themselves and let healthcare team know of decisions -04/06: extensive discussion with family ( and son) with Dr. Grayson regarding goals of care -04/08: Extensive discussion with with the use of timber mill worker line regarding goals of care; no decision made. Possible consult to surgery for trach/PEG early next week. -04/09: Discussion with and her sister with Dr. Grayson and then with Dr. Pineda-> Consulted surgery for trach/peg -04/30 Insurance Denied LTAC, plan for possible SNF placemenet now. Case management to arrange -05/12: Discharge cancelled yesterday. Patient desated on home vent at max setting. Home vent is not sufficient to support patient's ventilation need. -05/13: Adjustement made to home vent. Plan to optimize patient for possible discharge home. -Possible Discharge on Thursday 05/31- Guarded The high probability of a clinically significant, sudden or life threatening deterioration of the [multiple] system(s) required my full and direct attention, intervention and personal management. The aggregate critical care time was [60] minutes. This time is in addition to time spent performing reported procedures but includes the following: [x] Data Review and interpretation [x] Patient assessment and monitoring of vital signs [x] Documentation [x] Medication orders and management Disposition Plan: ICU Total Time Spent with Patient (Minutes): 60 History Interval history: Patient seen and examined at the bedside. Stable on home vent this am, following simple commands. Afebrile, VSS. Sacral wound vac noted with no s/s of any complications. Hospitalist Physical - Physical exam Narrative exam: General appearance: Present: no acute distress, cachectic, other (Trach and on the vent. Awake and tracking, following simple commands) - EENT Eyes: Present: PERRL - Neck Neck: Present: normal ROM - Respiratory Respiratory effort: normal Respiratory: bilateral: rhonchi - Cardiovascular Rhythm: regular Heart Sounds: Present: S1 & S2 - Extremities Extremities: no ischemia, pulses intact, pulses symmetrical Peripheral Pulses: within normal limits - Abdominal General gastrointestinal: soft, non-distended, normal bowel sounds - Integumentary Integumentary: Present: warm, dry - Psychiatric Psychiatric: other (Trach and on the vent. Awake and tracking, following simple commands) - Neurologic Neurologic: other (Trach and on the vent. Awake and tracking, following simple c ommands) - Allied Health Allied health notes reviewed: nursing, case management - Constitutional Vitals: Temp Pulse Resp BP Pulse Ox 99.9 F H 88 15 87/53 98 05/29/22 08:00 05/29/22 09:00 05/29/22 09:00 05/29/22 09:00 05/29/22 09:00 HEART Score - HEART Score Troponin: Troponin T 0.031 ng/mL (0.00-0.029) H 04/08/22 17:47 Results - Labs CBC & Chem 7: 05/28/22 04:20 05/28/22 04:20 Labs: Laboratory Last Values WBC 9.7 K/mm3 (4.5-11.0) 05/28/22 04:20 RBC 2.82 M/mm3 (3.65-5.03) L 05/28/22 04:20 Hgb 7.6 gm/dl (11.8-15.2) L 05/28/22 04:20 Hct 23.6 % (35.5-45.6) L 05/28/22 04:20 MCV 84 fl (84-94) 05/28/22 04:20 MCH 27 pg (28-32) L 05/28/22 04:20 MCHC 32 % (32-34) 05/28/22 04:20 RDW 17.3 % (13.2-15.2) H 05/28/22 04:20 Plt Count 347 K/mm3 (140-440) 05/28/22 04:20 Lymph % (Auto) 11.9 % (13.4-35.0) L 05/25/22 13:51 Mchenry % (Auto) 5.6 % (0.0-7.3) 05/25/22 13:51 Eos % (Auto) 0.9 % (0.0-4.3) 05/25/22 13:51 Baso % (Auto) 0.4 % (0.0-1.8) 05/25/22 13:51 Lymph # (Auto) 1.2 K/mm3 (1.2-5.4) 05/25/22 13:51 Mchenry # (Auto) 0.6 K/mm3 (0.0-0.8) 05/25/22 13:51 Eos # (Auto) 0.1 K/mm3 (0.0-0.4) 05/25/22 13:51 Baso # (Auto) 0.0 K/mm3 (0.0-0.1) 05/25/22 13:51 Add Manual Diff Complete 05/17/22 03:41 Total Counted 100 05/17/22 03:41 Seg Neutrophils % 81.2 % (40.0-70.0) H 05/25/22 13:51 Seg Neuts % (Manual) 96.0 % (40.0-70.0) H 05/17/22 03:41 Band Neutrophils % 0 % 05/17/22 03:41 Lymphocytes % (Manual) 1.0 % (13.4-35.0) L 05/17/22 03:41 Reactive Lymphs % (Man) 0 % 05/17/22 03:41 Monocytes % (Manual) 3.0 % (0.0-7.3) 05/17/22 03:41 Eosinophils % (Manual) 0 % (0.0-4.3) 05/17/22 03:41 Basophils % (Manual) 0 % (0.0-1.8) 05/17/22 03:41 Metamyelocytes % 0 % 05/17/22 03:41 Myelocytes % 0 % 05/17/22 03:41 Promyelocytes % 0 % 05/17/22 03:41 Blast Cells % 0 % 05/17/22 03:41 Nucleated RBC % Not Reportable 05/17/22 03:41 Seg Neutrophils # 8.4 K/mm3 (1.8-7.7) H 05/25/22 13:51 Seg Neutrophils # Man 15.6 K/mm3 (1.8-7.7) H 05/17/22 03:41 Band Neutrophils # 0.0 K/mm3 05/17/22 03:41 Lymphocytes # (Manual) 0.2 K/mm3 (1.2-5.4) L 05/17/22 03:41 Abs React Lymphs (Man) 0.0 K/mm3 05/17/22 03:41 Monocytes # (Manual) 0.5 K/mm3 (0.0-0.8) 05/17/22 03:41 Eosinophils # (Manual) 0.0 K/mm3 (0.0-0.4) 05/17/22 03:41 Basophils # (Manual) 0.0 K/mm3 (0.0-0.1) 05/17/22 03:41 Metamyelocytes # 0.0 K/mm3 05/17/22 03:41 Myelocytes # 0.0 K/mm3 05/17/22 03:41 Promyelocytes # 0.0 K/mm3 05/17/22 03:41 Blast Cells # 0.0 K/mm3 05/17/22 03:41 WBC Morphology Not Reportable 05/17/22 03:41 Hypersegmented Neuts Not Reportable 05/17/22 03:41 Hyposegmented Neuts Not Reportable 05/17/22 03:41 Hypogranular Neuts Not Reportable 05/17/22 03:41 Smudge Cells Not Reportable 05/17/22 03:41 Toxic Granulation Not Reportable 05/17/22 03:41 Toxic Vacuolation Not Reportable 05/17/22 03:41 Dohle Bodies Not Reportable 05/17/22 03:41 Pelger-Huet Anomaly Not Reportable 05/17/22 03:41 Terry Rods Not Reportable 05/17/22 03:41 Platelet Estimate Consistent w auto 05/17/22 03:41 Clumped Platelets Not Reportable 05/17/22 03:41 Plt Clumps, EDTA Not Reportable 05/17/22 03:41 Large Platelets Not Reportable 05/17/22 03:41 Giant Platelets Not Reportable 05/17/22 03:41 Platelet Satelliting Not Reportable 05/17/22 03:41 Plt Morphology Comment Not Reportable 05/17/22 03:41 RBC Morphology Not Reportable 05/17/22 03:41 Dimorphic RBCs Not Reportable 05/17/22 03:41 Polychromasia Not Reportable 05/17/22 03:41 Hypochromasia Not Reportable 05/17/22 03:41 Poikilocytosis Not Reportable 05/17/22 03:41 Anisocytosis 1+ 05/17/22 03:41 Microcytosis Not Reportable 05/17/22 03:41 Macrocytosis Not Reportable 05/17/22 03:41 Spherocytes Not Reportable 05/17/22 03:41 Pappenheimer Bodies Not Reportable 05/17/22 03:41 Sickle Cells Not Reportable 05/17/22 03:41 Target Cells Not Reportable 05/17/22 03:41 Tear Drop Cells Not Reportable 05/17/22 03:41 Ovalocytes Not Reportable 05/17/22 03:41 Helmet Cells Not Reportable 05/17/22 03:41 Patricio-Botkins Bodies Not Reportable 05/17/22 03:41 [place] Rings Not Reportable 05/17/22 03:41 Chiekh Cells Not Reportable 05/17/22 03:41 Bite Cells Not Reportable 05/17/22 03:41 Crenated Cell Not Reportable 05/17/22 03:41 Elliptocytes Not Reportable 05/17/22 03:41 Acanthocytes (Spur) Not Reportable 05/17/22 03:41 Rouleaux Not Reportable 05/17/22 03:41 Hemoglobin C Crystals Not Reportable 05/17/22 03:41 Schistocytes Not Reportable 05/17/22 03:41 Malaria parasites Not Reportable 05/17/22 03:41 [place] Bodies Not Reportable 05/17/22 03:41 Hem Pathologist Commnt No 05/17/22 03:41 PT 13.6 Sec. (12.2-14.9) 04/13/22 04:30 INR 0.94 (0.87-1.13) 04/13/22 04:30 APTT 35.7 Sec. (24.2-36.6) 04/07/22 03:51 ABG pH 7.385 pH Units (7.350-7.450) 05/19/22 06:10 ABG pCO2 51.9 mm Hg 05/19/22 06:10 ABG pO2 70.5 mm Hg (80.0-90.0) L 05/19/22 06:10 ABG HCO3 30.3 mmol/L (20.0-26.0) H 05/19/22 06:10 ABG O2 Saturation 97.6 % (95.0-99.0) 05/19/22 06:10 ABG O2 Content 8.1 (0.0-44) 05/19/22 06:10 ABG Base Excess 4.9 mmol/L (-2.0-3.0) H 05/19/22 06:10 ABG Hemoglobin 5.9 gm/dl (14.0-18.0) L 05/19/22 06:10 ABG Carboxyhemoglobin 1.5 % (0.0-5.0) 05/19/22 06:10 ABG Methemoglobin 0.4 % (0.0-1.5) 05/19/22 06:10 Oxyhemoglobin 95.8 % (95.0-99.0) 05/19/22 06:10 FiO2 55 % 05/19/22 06:10 Sodium 135 mmol/L (137-145) L 05/28/22 04:20 Potassium 4.5 mmol/L (3.6-5.0) 05/28/22 04:20 Chloride 94.4 mmol/L (98-107) L 05/28/22 04:20 Carbon Dioxide 35 mmol/L (22-30) H 05/28/22 04:20 Anion Gap 10 mmol/L 05/28/22 04:20 BUN 17 mg/dL (9-20) 05/28/22 04:20 Creatinine < 0.2 mg/dL (0.8-1.3) L 05/28/22 04:20 Estimated GFR > 60 ml/min 05/28/22 04:20 BUN/Creatinine Ratio 85 % 05/28/22 04:20 Glucose 130 mg/dL (75-100) H 05/28/22 04:20 POC Glucose 120 mg/dL (70-105) H 05/28/22 21:19 Lactic Acid 1.90 mmol/L (0.7-2.0) 04/02/22 19:39 Calcium 8.0 mg/dL (8.4-10.2) L 05/28/22 04:20 Phosphorus 2.70 mg/dL (2.5-4.5) 05/22/22 05:49 Magnesium 1.80 mg/dL (1.7-2.3) 05/22/22 05:49 Total Bilirubin 0.80 mg/dL (0.1-1.2) 04/02/22 19:39 AST 15 units/L (5-40) 04/02/22 19:39 ALT 9 units/L (7-56) 04/02/22 19:39 Alkaline Phosphatase 43 units/L (35-129) 04/02/22 19:39 Total Creatine Kinase 46 units/L (55-170) L 04/08/22 17:47 CK-MB (CK-2) 2.6 ng/mL (0.0-4.0) 04/08/22 17:47 CK-MB (CK-2) Rel Index 5.6 (0-4) H 04/08/22 17:47 Troponin T 0.031 ng/mL (0.00-0.029) H 04/08/22 17:47 C-Reactive Protein 31.20 mg/dL (0.00-1.30) H 05/17/22 03:41 Total Protein 4.6 g/dL (6.3-8.2) L 04/02/22 19:39 Albumin 2.7 g/dL (3.9-5) L 04/02/22 19:39 Albumin/Globulin Ratio 1.4 % 04/02/22 19:39 Triglycerides 80 mg/dL (2-149) 04/02/22 19:39 Cholesterol 94 mg/dL (50-199) 04/02/22 19:39 LDL Cholesterol Direct 27 mg/dL (50-130) L 04/02/22 19:39 HDL Cholesterol 47 mg/dL (40-59) 04/02/22 19:39 Cholesterol/HDL Ratio 2.00 % 04/02/22 19:39 Procalcitonin 1.30 ng/mL (<0.15) 05/17/22 03:41 Urine Color Aracely (Yellow) 05/18/22 03:50 Urine Turbidity Clear (Clear) 05/18/22 03:50 Urine pH 5.0 (5.0-7.0) 05/18/22 03:50 Ur Specific [place] 1.030 (1.003-1.030) 05/18/22 03:50 Urine Protein 30 mg/dl mg/dL (Negative) 05/18/22 03:50 Urine Glucose (UA) Neg mg/dL (Negative) 05/18/22 03:50 Urine Ketones Tr mg/dL (Negative) 05/18/22 03:50 Urine Blood Neg (Negative) 05/18/22 03:50 Urine Nitrite Neg (Negative) 05/18/22 03:50 Urine Bilirubin Neg (Negative) 05/18/22 03:50 Urine Urobilinogen < 2.0 mg/dL (<2.0) 05/18/22 03:50 Ur Leukocyte Esterase Neg (Negative) 05/18/22 03:50 Urine WBC (Auto) 1.0 /HPF (0.0-6.0) 05/18/22 03:50 Urine RBC (Auto) 1.0 /HPF (0.0-6.0) 05/18/22 03:50 U Epithel Cells (Auto) 2.0 /HPF (0-13.0) 05/18/22 03:50 Urine Bacteria (Auto) 1+ /HPF (Negative) 05/18/22 03:50 Hyaline Casts 1 /LPF 04/05/22 17:45 Urine Mucus Few /HPF 05/18/22 03:50 Nasal Screen MRSA (PCR) Negative (Negative) 04/05/22 12:37 Vancomycin Trough 16.2 ug/mL (5.0-20.0) 05/20/22 20:41 Coronavirus (PCR) Negative (Negative) 04/07/22 14:52 Blood Type O POSITIVE 05/18/22 13:56 Antibody Screen Negative 05/18/22 13:56 Crossmatch See Detail 05/18/22 13:56 Perez/IV: Voiding Method Condom Catheter Active Medications - Current Medications Current Medications: Generic Name Dose Route Start Last Admin Trade Name Freq PRN Reason Stop Dose Admin Acetaminophen 650 mg 04/02/22 23:53 05/24/22 00:52 Acetaminophen 325 Mg Tab PO 650 mg Q6H PRN Administration Pain MILD(1-3)/Fever >100.5/FAITH Acetylcysteine 200 mg 05/04/22 20:00 05/29/22 08:09 Acetylcysteine 20% 200 Mg/1 Ml *For Inhalation Use* INHALATION 200 mg Q12HRT SEGUNDO Administration Albuterol 2.5 mg 05/05/22 20:00 05/29/22 08:09 Albuterol 2.5 Mg/3 Ml Nebu IH 2.5 mg Q12HRT SEGUNDO Administration Lipase/Protease/Amylase 1 each 05/20/22 15:35 Lipase 10,500/Protease 25,000/Amylase 43,750 (Units) Dr Patterson FEEDTUBE PRN PRN For Clogged Feeding Tube Baclofen 10 mg 05/19/22 20:00 05/29/22 08:25 Baclofen 10 Mg Tab PO 10 mg TID SEGUNDO Administration Bisacodyl 10 mg 04/07/22 09:44 04/12/22 10:06 Bisacodyl 10 Mg Rect Supp ND 10 mg QDAY PRN Administration Constipation Docusate Sodium 100 mg 05/18/22 22:00 05/28/22 22:47 Docusate Sodium 100 Mg/10 Ml Oral Liqd FEEDTUBE Not Given BID SEGUNDO Famotidine 20 mg 04/06/22 10:00 05/28/22 22:46 Famotidine 20 Mg Tab FEEDTUBE 20 mg BID SEGUNDO Administration Fentanyl 50 mcg 04/04/22 15:56 05/19/22 21:24 Fentanyl 100 Mcg/2 Ml Inj IV 50 mcg Q2HR PRN Administration For CPOT of greater than 3 Heparin Sodium (Porcine) 5,000 unit 04/03/22 06:00 05/29/22 05:45 Heparin 5,000 Unit/1 Ml Vial SUB-Q Not Given Q8HR [facility] [place] CEFTAZIDIME/AVIBACTAM 2.5 gm/ 50 mls @ 25 mls/hr 05/26/22 09:00 05/29/22 03:44 Sodium Chloride IV 06/05/22 02:59 25 mls/hr Q8H [facility] Administration Insulin Human Lispro 0 unit 05/05/22 06:00 05/29/22 05:45 Insulin Lispro 100 Unit/Ml SUB-Q Not Given Q8HR [facility] [place] Protocol Magnesium Hydroxide 30 ml 04/02/22 23:53 Magnesium Hydroxide (Mom) Oral Liqd Udc PO Q4H PRN Constipation Metoprolol Tartrate 12.5 mg 05/03/22 13:00 05/29/22 05:46 Metoprolol Tartrate 25 Mg Tab FEEDTUBE Not Given Q6HR [facility] [place] Ondansetron HCl 4 mg 04/02/22 23:53 Ondansetron 4 Mg/2 Ml Inj IV Q8H PRN Nausea And Vomiting Polyethylene Glycol 17 gm 05/18/22 15:00 05/28/22 09:11 Polyethylene Glycol 3350 17 Gm Powder FEEDTUBE Not Given QDAY SEGUNDO Quetiapine Fumarate 50 mg 05/13/22 11:00 05/28/22 22:46 Quetiapine 100 Mg Tab FEEDTUBE 50 mg BID SEGUNDO Administration Scopolamine 1 each 05/12/22 09:00 05/27/22 10:01 Scopolamine Transdermal Patch 72 Hr TD 1 each Q3D SEGUNDO Administration Senna 8.8 mg 05/18/22 22:00 05/28/22 22:47 Sennosides Oral Liqd 8.8 Mg/5 Ml Oral Liqd FEEDTUBE Not Given QHS SEGUNDO Simple Syrup 15 ml 05/20/22 15:35 Simple Syrup 15 Ml FEEDTUBE PRN PRN Hypoglycemia Simple Syrup 30 ml 05/20/22 15:35 Simple Syrup 15 Ml FEEDTUBE PRN PRN Hypoglycemia Sodium Bicarbonate 325 mg 05/20/22 15:35 Sodium Bicarbonate 325 Mg Tab FEEDTUBE PRN PRN For Clogged Feeding Tube Sodium Chloride 10 ml 04/03/22 10:00 05/28/22 22:47 Sodium Chloride 0.9% 10 Ml Flush Syringe IV 10 ml BID SEGUNDO Administration Sodium Chloride 10 ml 04/02/22 23:53 05/16/22 05:10 Sodium Chloride 0.9% 10 Ml Flush Syringe IV 10 ml PRN PRN Administration LINE FLUSH Nutrition/Malnutrition Assess - Dietary Evaluation Nutrition/Malnutrition Findings: Nutrition Notes Start: 04/04/22 13:13 Freq: Status: Active Protocol: Document 05/27/22 09:47 COLLEEN (Rec: 05/27/22 10:19 COLLEEN [id number]) Nutrition Notes Initial or Follow up Reassessment Current Diagnosis Coronary Artery Disease, Decubitus(Pressure Ulcer), Sepsis,Respiratory Failure Other Pertinent Diagnosis HCAP, ALS, Broncopneumonia, NSTEMI, Cardiomyopathy, ... Current Diet TF-Osmolite 1.5 Inderjit @ 55 ml/hr (since D 05/19). Labs/Tests 05/27: Na 134, Cl 92.4, CO2 37 , Crea <0.2, Glu 140, Ca 8.2. Pertinent Medications 05/27: Nutritionaslly unremerkable. Height 5 ft 4.8 in Weight 54.3 kg [place] Body Weight (kg) 61.27 BMI 20.0 Weight change and time frame 5.7 Kg body weight gain reported in 1 week. Weight Status Appropriate Subjective/Other Information RD consult for routine F/U on TF tolerance/continuation. TF continues as prescribed, and well tolerated with no residuals, according to RN notes. Pt continues on Mechanical Ventilation, O2 saturation @ 99%, according to Physical Assessment History notes. Procedure on 05/24: WoundVac changed, wound cleaned, and skin substitute in place, well tolerated, according to Operative Report. Plans to discharge on 05/27, on [facility], Pt tolerating well, according to [facility]gre[facility] notes. Percent of energy/protein needs met: Prescribed TF-Osmolite 1.5 Inderjit @ 55 ml/hr provides for energy/protein needs (1,980 Kcal/83 g) during LOS, 102% Kcal; 100% AA. Burn Absent Trauma Absent GI Symptoms Constipation Difficulty In Swallowing,Chewing Food Allergy No Skin Integrity/Comment Stage IV Sacral Ulcer. 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 Yes Is Patient Ambulatory and/or Out of Bed No REE-([facility]-confined to bed) 1566.648 Kcal/Kg value to use for calculation 36 Approximate Energy Requirements Using 1955 kcal/Kg Calculation Used for Recommendations Kcal/kg Additional Notes Protein: 1.5-2 g/Kg ABW; 73-98 g/day. Fluids: 1 ml/Kcal, or as per MD. Nutrition Intervention Nutrition Support: Continue TF-Osmolite 1.5 Inderjit @ 55 ml/hr. Flush: 150 ml water Q 4 hr, or as per MD. Kcal 1,980 Protein (gm) 83 Carbohydrates (gm) 269 Fat (gm) 65 Fluid (mL) 1,006 Fiber (gm) 0 % RDI: 102% Kcal; 100% AA. Goal #1 Provide at least 75% of energy /protein needs through Enteral Feeding during LOS. Follow-Up By: 06/10/22 Additional Comments Continue monitoring TF tolerance and BM. <DIXIE BROWN - Last Filed: 05/30/22 07:14> Assessment and Plan Assessment and plan: I saw and evaluated the patient. I agree with the findings and the plan of care as documented in the Nurse Practitioner's~note, with the following corrections and additions. Hospitalist Physical - Constitutional Vitals: Temp Pulse Resp BP Pulse Ox 98.4 F 107 H 18 98/51 99 05/30/22 04:00 05/30/22 06:00 05/30/22 06:00 05/30/22 06:00 05/30/22 06:00 HEART Score - HEART Score Troponin: Troponin T 0.031 ng/mL (0.00-0.029) H 04/08/22 17:47 Results - Labs CBC & Chem 7: 05/28/22 04:20 05/28/22 04:20 Labs: Laboratory Last Values WBC 9.7 K/mm3 (4.5-11.0) 05/28/22 04:20 RBC 2.82 M/mm3 (3.65-5.03) L 05/28/22 04:20 Hgb 7.6 gm/dl (11.8-15.2) L 05/28/22 04:20 Hct 23.6 % (35.5-45.6) L 05/28/22 04:20 MCV 84 fl (84-94) 05/28/22 04:20 MCH 27 pg (28-32) L 05/28/22 04:20 MCHC 32 % (32-34) 05/28/22 04:20 RDW 17.3 % (13.2-15.2) H 05/28/22 04:20 Plt Count 347 K/mm3 (140-440) 05/28/22 04:20 Lymph % (Auto) 11.9 % (13.4-35.0) L 05/25/22 13:51 [place] % (Auto) 5.6 % (0.0-7.3) 05/25/22 13:51 Eos % (Auto) 0.9 % (0.0-4.3) 05/25/22 13:51 Baso % (Auto) 0.4 % (0.0-1.8) 05/25/22 13:51 Lymph # (Auto) 1.2 K/mm3 (1.2-5.4) 05/25/22 13:51 [place] # (Auto) 0.6 K/mm3 (0.0-0.8) 05/25/22 13:51 Eos # (Auto) 0.1 K/mm3 (0.0-0.4) 05/25/22 13:51 Baso # (Auto) 0.0 K/mm3 (0.0-0.1) 05/25/22 13:51 Add Manual Diff Complete 05/17/22 03:41 Total Counted 100 05/17/22 03:41 Seg Neutrophils % 81.2 % (40.0-70.0) H 05/25/22 13:51 Seg Neuts % (Manual) 96.0 % (40.0-70.0) H 05/17/22 03:41 Band Neutrophils % 0 % 05/17/22 03:41 Lymphocytes % (Manual) 1.0 % (13.4-35.0) L 05/17/22 03:41 Reactive Lymphs % (Man) 0 % 05/17/22 03:41 Monocytes % (Manual) 3.0 % (0.0-7.3) 05/17/22 03:41 Eosinophils % (Manual) 0 % (0.0-4.3) 05/17/22 03:41 Basophils % (Manual) 0 % (0.0-1.8) 05/17/22 03:41 Metamyelocytes % 0 % 05/17/22 03:41 Myelocytes % 0 % 05/17/22 03:41 Promyelocytes % 0 % 05/17/22 03:41 Blast Cells % 0 % 05/17/22 03:41 Nucleated RBC % Not Reportable 05/17/22 03:41 Seg Neutrophils # 8.4 K/mm3 (1.8-7.7) H 05/25/22 13:51 Seg Neutrophils # Man 15.6 K/mm3 (1.8-7.7) H 05/17/22 03:41 Band Neutrophils # 0.0 K/mm3 05/17/22 03:41 Lymphocytes # (Manual) 0.2 K/mm3 (1.2-5.4) L 05/17/22 03:41 Abs React Lymphs (Man) 0.0 K/mm3 05/17/22 03:41 Monocytes # (Manual) 0.5 K/mm3 (0.0-0.8) 05/17/22 03:41 Eosinophils # (Manual) 0.0 K/mm3 (0.0-0.4) 05/17/22 03:41 Basophils # (Manual) 0.0 K/mm3 (0.0-0.1) 05/17/22 03:41 Metamyelocytes # 0.0 K/mm3 05/17/22 03:41 Myelocytes # 0.0 K/mm3 05/17/22 03:41 Promyelocytes # 0.0 K/mm3 05/17/22 03:41 Blast Cells # 0.0 K/mm3 05/17/22 03:41 WBC Morphology Not Reportable 05/17/22 03:41 Hypersegmented Neuts Not Reportable 05/17/22 03:41 Hyposegmented Neuts Not Reportable 05/17/22 03:41 Hypogranular Neuts Not Reportable 05/17/22 03:41 Smudge Cells Not Reportable 05/17/22 03:41 Toxic Granulation Not Reportable 05/17/22 03:41 Toxic Vacuolation Not Reportable 05/17/22 03:41 Dohle Bodies Not Reportable 05/17/22 03:41 Pelger-Huet Anomaly Not Reportable 05/17/22 03:41 Terry Rods Not Reportable 05/17/22 03:41 Platelet Estimate Consistent w auto 05/17/22 03:41 Clumped Platelets Not Reportable 05/17/22 03:41 Plt Clumps, EDTA Not Reportable 05/17/22 03:41 Large Platelets Not Reportable 05/17/22 03:41 Giant Platelets Not Reportable 05/17/22 03:41 Platelet Satelliting Not Reportable 05/17/22 03:41 Plt Morphology Comment Not Reportable 05/17/22 03:41 RBC Morphology Not Reportable 05/17/22 03:41 Dimorphic RBCs Not Reportable 05/17/22 03:41 Polychromasia Not Reportable 05/17/22 03:41 Hypochromasia Not Reportable 05/17/22 03:41 Poikilocytosis Not Reportable 05/17/22 03:41 Anisocytosis 1+ 05/17/22 03:41 Microcytosis Not Reportable 05/17/22 03:41 Macrocytosis Not Reportable 05/17/22 03:41 Spherocytes Not Reportable 05/17/22 03:41 Pappenheimer Bodies Not Reportable 05/17/22 03:41 Sickle Cells Not Reportable 05/17/22 03:41 Target Cells Not Reportable 05/17/22 03:41 Tear Drop Cells Not Reportable 05/17/22 03:41 Ovalocytes Not Reportable 05/17/22 03:41 Helmet Cells Not Reportable 05/17/22 03:41 Patricio-Botkins Bodies Not Reportable 05/17/22 03:41 [place] Rings Not Reportable 05/17/22 03:41 [place] Cells Not Reportable 05/17/22 03:41 Bite Cells Not Reportable 05/17/22 03:41 Crenated Cell Not Reportable 05/17/22 03:41 Elliptocytes Not Reportable 05/17/22 03:41 Acanthocytes (Spur) Not Reportable 05/17/22 03:41 Rouleaux Not Reportable 05/17/22 03:41 Hemoglobin C Crystals Not Reportable 05/17/22 03:41 Schistocytes Not Reportable 05/17/22 03:41 Malaria parasites Not Reportable 05/17/22 03:41 [place] Bodies Not Reportable 05/17/22 03:41 Hem Pathologist Commnt No 05/17/22 03:41 PT 13.6 Sec. (12.2-14.9) 04/13/22 04:30 INR 0.94 (0.87-1.13) 04/13/22 04:30 APTT 35.7 Sec. (24.2-36.6) 04/07/22 03:51 ABG pH 7.385 pH Units (7.350-7.450) 05/19/22 06:10 ABG pCO2 51.9 mm Hg 05/19/22 06:10 ABG pO2 70.5 mm Hg (80.0-90.0) L 05/19/22 06:10 ABG HCO3 30.3 mmol/L (20.0-26.0) H 05/19/22 06:10 ABG O2 Saturation 97.6 % (95.0-99.0) 05/19/22 06:10 ABG O2 Content 8.1 (0.0-44) 05/19/22 06:10 ABG Base Excess 4.9 mmol/L (-2.0-3.0) H 05/19/22 06:10 ABG Hemoglobin 5.9 gm/dl (14.0-18.0) L 05/19/22 06:10 ABG Carboxyhemoglobin 1.5 % (0.0-5.0) 05/19/22 06:10 ABG Methemoglobin 0.4 % (0.0-1.5) 05/19/22 06:10 Oxyhemoglobin 95.8 % (95.0-99.0) 05/19/22 06:10 FiO2 55 % 05/19/22 06:10 Sodium 135 mmol/L (137-145) L 05/28/22 04:20 Potassium 4.5 mmol/L (3.6-5.0) 05/28/22 04:20 Chloride 94.4 mmol/L (98-107) L 05/28/22 04:20 Carbon Dioxide 35 mmol/L (22-30) H 05/28/22 04:20 Anion Gap 10 mmol/L 05/28/22 04:20 BUN 17 mg/dL (9-20) 05/28/22 04:20 Creatinine < 0.2 mg/dL (0.8-1.3) L 05/28/22 04:20 Estimated GFR > 60 ml/min 05/28/22 04:20 BUN/Creatinine Ratio 85 % 05/28/22 04:20 Glucose 130 mg/dL (75-100) H 05/28/22 04:20 POC Glucose 128 mg/dL (70-105) H 05/30/22 05:54 Lactic Acid 1.90 mmol/L (0.7-2.0) 04/02/22 19:39 Calcium 8.0 mg/dL (8.4-10.2) L 05/28/22 04:20 Phosphorus 2.70 mg/dL (2.5-4.5) 05/22/22 05:49 Magnesium 1.80 mg/dL (1.7-2.3) 05/22/22 05:49 Total Bilirubin 0.80 mg/dL (0.1-1.2) 04/02/22 19:39 AST 15 units/L (5-40) 04/02/22 19:39 ALT 9 units/L (7-56) 04/02/22 19:39 Alkaline Phosphatase 43 units/L (35-129) 04/02/22 19:39 Total Creatine Kinase 46 units/L (55-170) L 04/08/22 17:47 CK-MB (CK-2) 2.6 ng/mL (0.0-4.0) 04/08/22 17:47 CK-MB (CK-2) Rel Index 5.6 (0-4) H 04/08/22 17:47 Troponin T 0.031 ng/mL (0.00-0.029) H 04/08/22 17:47 C-Reactive Protein 31.20 mg/dL (0.00-1.30) H 05/17/22 03:41 Total Protein 4.6 g/dL (6.3-8.2) L 04/02/22 19:39 Albumin 2.7 g/dL (3.9-5) L 04/02/22 19:39 Albumin/Globulin Ratio 1.4 % 04/02/22 19:39 Triglycerides 80 mg/dL (2-149) 04/02/22 19:39 Cholesterol 94 mg/dL (50-199) 04/02/22 19:39 LDL Cholesterol Direct 27 mg/dL (50-130) L 04/02/22 19:39 HDL Cholesterol 47 mg/dL (40-59) 04/02/22 19:39 Cholesterol/HDL Ratio 2.00 % 04/02/22 19:39 Procalcitonin 1.30 ng/mL (<0.15) 05/17/22 03:41 Urine Color Aracely (Yellow) 05/18/22 03:50 Urine Turbidity Clear (Clear) 05/18/22 03:50 Urine pH 5.0 (5.0-7.0) 05/18/22 03:50 Ur Specific [place] 1.030 (1.003-1.030) 05/18/22 03:50 Urine Protein 30 mg/dl mg/dL (Negative) 05/18/22 03:50 Urine Glucose (UA) Neg mg/dL (Negative) 05/18/22 03:50 Urine Ketones Tr mg/dL (Negative) 05/18/22 03:50 Urine Blood Neg (Negative) 05/18/22 03:50 Urine Nitrite Neg (Negative) 05/18/22 03:50 Urine Bilirubin Neg (Negative) 05/18/22 03:50 Urine Urobilinogen < 2.0 mg/dL (<2.0) 05/18/22 03:50 Ur Leukocyte Esterase Neg (Negative) 05/18/22 03:50 Urine WBC (Auto) 1.0 /HPF (0.0-6.0) 05/18/22 03:50 Urine RBC (Auto) 1.0 /HPF (0.0-6.0) 05/18/22 03:50 U Epithel Cells (Auto) 2.0 /HPF (0-13.0) 05/18/22 03:50 Urine Bacteria (Auto) 1+ /HPF (Negative) 05/18/22 03:50 Hyaline Casts 1 /LPF 04/05/22 17:45 Urine Mucus Few /HPF 05/18/22 03:50 Nasal Screen MRSA (PCR) Negative (Negative) 04/05/22 12:37 Vancomycin Trough 16.2 ug/mL (5.0-20.0) 05/20/22 20:41 Coronavirus (PCR) Negative (Negative) 04/07/22 14:52 Blood Type O POSITIVE 05/18/22 13:56 Antibody Screen Negative 05/18/22 13:56 Crossmatch See Detail 05/18/22 13:56 Perez/IV: Voiding Method Condom Catheter Active Medications - Current Medications Current Medications: Generic Name Dose Route Start Last Admin Trade Name Freq PRN Reason Stop Dose Admin Acetaminophen 650 mg 04/02/22 23:53 05/29/22 10:07 Acetaminophen 325 Mg Tab PO 650 mg Q6H PRN Administration Pain MILD(1-3)/Fever >100.5/FAITH Acetylcysteine 200 mg 05/04/22 20:00 05/29/22 20:51 Acetylcysteine 20% 200 Mg/1 Ml *For Inhalation Use* INHALATION 200 mg Q12HRT SEGUNDO Administration Albuterol 2.5 mg 05/05/22 20:00 05/29/22 20:51 Albuterol 2.5 Mg/3 Ml Nebu IH 2.5 mg Q12HRT SEGUNDO Administration Lipase/Protease/Amylase 1 each 05/20/22 15:35 Lipase 10,500/Protease 25,000/Amylase 43,750 (Units) Dr Patterson FEEDTUBE PRN PRN For Clogged Feeding Tube Baclofen 10 mg 05/19/22 20:00 05/29/22 21:52 Baclofen 10 Mg Tab PO 10 mg TID SEGUNDO Administration Bisacodyl 10 mg 04/07/22 09:44 04/12/22 10:06 Bisacodyl 10 Mg Rect Supp ND 10 mg QDAY PRN Administration Constipation Docusate Sodium 100 mg 05/18/22 22:00 05/29/22 21:51 Docusate Sodium 100 Mg/10 Ml Oral Liqd FEEDTUBE 100 mg BID SEGUNDO Administration Famotidine 20 mg 04/06/22 10:00 05/30/22 06:27 Famotidine 20 Mg Tab FEEDTUBE 20 mg BID SEGUNDO Administration Fentanyl 50 mcg 04/04/22 15:56 05/19/22 21:24 Fentanyl 100 Mcg/2 Ml Inj IV 50 mcg Q2HR PRN Administration For CPOT of greater than 3 Heparin Sodium (Porcine) 5,000 unit 04/03/22 06:00 05/30/22 06:36 Heparin 5,000 Unit/1 Ml Vial SUB-Q 5,000 unit Q8HR SEGUNDO Administration CEFTAZIDIME/AVIBACTAM 2.5 gm/ 50 mls @ 25 mls/hr 05/26/22 09:00 05/30/22 01:00 Sodium Chloride IV 06/05/22 02:59 25 mls/hr Q8H SEGUNDO Administration Insulin Human Lispro 0 unit 05/05/22 06:00 05/30/22 06:28 Insulin Lispro 100 Unit/Ml SUB-Q Not Given Q8HR [facility] Protocol Magnesium Hydroxide 30 ml 04/02/22 23:53 Magnesium Hydroxide (Mom) Oral Liqd Udc PO Q4H PRN Constipation Metoprolol Tartrate 12.5 mg 05/29/22 22:00 05/29/22 21:51 Metoprolol Tartrate 25 Mg Tab FEEDTUBE 12.5 mg BID SEGUNDO Administration Ondansetron HCl 4 mg 04/02/22 23:53 Ondansetron 4 Mg/2 Ml Inj IV Q8H PRN Nausea And Vomiting Polyethylene Glycol 17 gm 05/18/22 15:00 05/29/22 09:42 Polyethylene Glycol 3350 17 Gm Powder FEEDTUBE Not Given QDAY SEGUNDO Quetiapine Fumarate 50 mg 05/13/22 11:00 05/29/22 21:51 Quetiapine 100 Mg Tab FEEDTUBE 50 mg BID SEGUNDO Administration Scopolamine 1 each 05/12/22 09:00 05/27/22 10:01 Scopolamine Transdermal Patch 72 Hr TD 1 each Q3D SEGUNDO Administration Senna 8.8 mg 05/18/22 22:00 05/29/22 21:51 Sennosides Oral Liqd 8.8 Mg/5 Ml Oral Liqd FEEDTUBE 8.8 mg QHS SEGUNDO Administration Simple Syrup 15 ml 05/20/22 15:35 Simple Syrup 15 Ml FEEDTUBE PRN PRN Hypoglycemia Simple Syrup 30 ml 05/20/22 15:35 Simple Syrup 15 Ml FEEDTUBE PRN PRN Hypoglycemia Sodium Bicarbonate 325 mg 05/20/22 15:35 Sodium Bicarbonate 325 Mg Tab FEEDTUBE PRN PRN For Clogged Feeding Tube Sodium Chloride 10 ml 04/03/22 10:00 05/30/22 06:28 Sodium Chloride 0.9% 10 Ml Flush Syringe IV 10 ml BID SEGUNDO Administration Sodium Chloride 10 ml 04/02/22 23:53 05/16/22 05:10 Sodium Chloride 0.9% 10 Ml Flush Syringe IV 10 ml PRN PRN Administration LINE FLUSH Nutrition/Malnutrition Assess - Dietary Evaluation Nutrition/Malnutrition Findings: Nutrition Notes Start: 04/04/22 13:13 Freq: Status: Active Protocol: Document 05/27/22 09:47 COLLEEN (Rec: 05/27/22 10:19 COLLEEN [id number]) Nutrition Notes Initial or Follow up Reassessment Current Diagnosis Coronary Artery Disease, Decubitus(Pressure Ulcer), Sepsis,Respiratory Failure Other Pertinent Diagnosis HCAP, ALS, Broncopneumonia, NSTEMI, Cardiomyopathy, ... Current Diet TF-Osmolite 1.5 Inderjit @ 55 ml/hr (since D 05/19). Labs/Tests 05/27: Na 134, Cl 92.4, CO2 37 , Crea <0.2, Glu 140, Ca 8.2. Pertinent Medications 05/27: Nutritionaslly unremerkable. Height 5 ft 4.8 in Weight 54.3 kg [place] Body Weight (kg) 61.27 BMI 20.0 Weight change and time frame 5.7 Kg body weight gain reported in 1 week. Weight Status Appropriate Subjective/Other Information RD consult for routine F/U on TF tolerance/continuation. TF continues as prescribed, and well tolerated with no residuals, according to RN notes. Pt continues on Mechanical Ventilation, O2 saturation @ 99%, according to Physical Assessment History notes. Procedure on 05/24: WoundVac changed, wound cleaned, and skin substitute in place, well tolerated, according to Operative Report. Plans to discharge on 05/27, on [facility], Pt tolerating well, according to [facility] notes. Percent of energy/protein needs met: Prescribed TF-Osmolite 1.5 Inderjit @ 55 ml/hr provides for energy/protein needs (1,980 Kcal/83 g) during LOS, 102% Kcal; 100% AA. Burn Absent Trauma Absent GI Symptoms Constipation Difficulty In Swallowing,Chewing Food Allergy No Skin Integrity/Comment Stage IV Sacral Ulcer. 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 Yes Is Patient Ambulatory and/or Out of Bed No REE-([facility]-confined to bed) 1566.648 Kcal/Kg value to use for calculation 36 Approximate Energy Requirements Using 1955 kcal/Kg Calculation Used for Recommendations Kcal/kg Additional Notes Protein: 1.5-2 g/Kg ABW; 73-98 g/day. Fluids: 1 ml/Kcal, or as per MD. Nutrition Intervention Nutrition Support: Continue TF-Osmolite 1.5 Inderjit @ 55 ml/hr. Flush: 150 ml water Q 4 hr, or as per MD. Kcal 1,980 Protein (gm) 83 Carbohydrates (gm) 269 Fat (gm) 65 Fluid (mL) 1,006 Fiber (gm) 0 % RDI: 102% Kcal; 100% AA. Goal #1 Provide at least 75% of energy /protein needs through Enteral Feeding during LOS. Follow-Up By: 06/10/22 Additional Comments Continue monitoring TF tolerance and BM.
[2022-05-29] MEDS: POLYETHYLENE GLYCOL 3350 17 GM POWDER FEEDTUBE SCH (09:42)
[2022-05-29] MEDS: DOCUSATE SODIUM 100 MG/10 ML ORAL LIQD FEEDTUBE SCH ×2 (09:42→21:51)
[2022-05-29] MEDS: ACETAMINOPHEN 325 MG TAB PO PRN (10:07)
[2022-05-29] MEDS: FAMOTIDINE 20 MG TAB FEEDTUBE SCH (10:07)
[2022-05-29] MEDS: QUEtiapine 100 MG TAB FEEDTUBE SCH ×2 (10:07→21:51)
--- NOTE | 2022-05-29 10:51 | Progress Note ---
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 Protein calorie malnutrition Acute Bronchopneumonia HCAP Hypotension NSTEMI Hypernatremia Acute Metabolic Encephalopathy H/O Amyotrophic Lateral Sclerosis Nonverbal at Baseline Thrombocytopenia Protein Caloric Malnutrition Constipation - RT to switch back to home ventilator and then we will troubleshoot as necessary - continue Avycaz, de-escalate per ID recommendations (10 days) - s/p PICC line for outpatient AB's - continue wound care per RN/WCN/Surgeon - continue daily SAT and SBT assessment as tolerated while in hospital - continue to optimize nutritional status - discharge planning ongoing concurrently - continue care as below otherwise; - bronchoscopy if develops large volume atelectasis - continue mucomyst nebs for thick tenacious secretions - continue scheduled CPT - continue Seroquel for anxiolysis / delirium - continue bronchodilators with pulmonary hygiene per RT - continue to wean supplemental oxygen for target O2 sat's > 90% acutely - VAP bundle addressed - continue lung protective strategies - wean per pulmonary driven protocols otherwise - continue accuchecks with glycemic control per SSI (While critically ill target blood glucose of 140-180 mg/dL; avoid hypoglycemia) - sedation prn for target RASS 0 to -1 - avoid nephrotoxins, renally dose all medications - continue to avoid benzodiazepine's, reduce the possibility of delirium - AB's per ID rec's - prn analgesia per CPOT score - Maintenance of sleep-wake cycle, avoid delirium - continue enteral nutritional support at goal rate as tolerated - G.I. & VTE prophylaxis - PT/OT/ROM exercises - continue mobility protocols for pressure ulcer prophylaxis - Monitor hemodynamics closely - continue other care per attending / other consultants - discharge planning ongoing concurrently COVID SPECIFIC INTERVENTIONS - test negative .... Re-evaluate in am & prn CONDITION: CRITICAL PROGNOSIS: GUARDED CODE STATUS: FULL CODE The high probability of a clinically significant, sudden or life-threatening deterioration of the [respiratory, cardiovascular & neurologic] system(s) required my full and direct attention, intervention and personal management. The aggregate critical care time was [32] minutes without overlap. Time includes spent on; [x] Data Review and interpretation [x] Patient assessment and monitoring of vital signs [x] Documentation [x] Medication orders and management Subjective Date of service: 05/29/22 Principal diagnosis: Ac and ch hypercapnic and hypoxemic Resp Failure; ALS; HCAP; Sepsis; NSTEMI Interval history: LATE ENTRY NOTE FOR DOS 05/28/2022 Patient is seen today for: Acute and chronic hypercapnic and hypoxemic Respiratory Failure; ALS; HCAP; Sepsis; NSTEMI; AMS; Hypernatremia; Thrombocytopenia; Protein Caloric Malnutrition; Constipation Seen and examined at bedside; 24hour events reviewed; nursing and respiratory care staff consulted; no adverse overnight events reported to me; resting peacefully in bed; remains on MVS; son and visiting; denies acute chest pain or SOB; AB's transitioned to Avycaz; desaturated per RT yesterday and placed back on hospital ventilator Objective Vital Signs - 12hr 05/28/22 05/29/22 05/29/22 23:00 00:00 00:01 Temperature 99 F Pulse Rate 140 H 102 H 140 H Pulse Rate [ Bilateral Throughout] Pulse Rate [ 94 H From Monitor] Respiratory 33 H 23 24 Rate Respiratory Rate [Bilateral Throughout] Blood Pressure 106/69 106/69 O2 Sat by Pulse 93 99 95 Oximetry O2 Sat by Pulse Oximetry [ Assessment] 05/29/22 05/29/22 05/29/22 00:03 01:00 02:00 Temperature Pulse Rate 155 H 119 H 105 H Pulse Rate [ Bilateral Throughout] Pulse Rate [ From Monitor] Respiratory 24 17 Rate Respiratory Rate [Bilateral Throughout] Blood Pressure 106/69 97/58 91/61 O2 Sat by Pulse 93 95 100 Oximetry O2 Sat by Pulse 93 Oximetry [ Assessment] 05/29/22 05/29/22 05/29/22 03:00 03:11 04:00 Temperature 98.6 F Pulse Rate 104 H 103 H 101 H Pulse Rate [ Bilateral Throughout] Pulse Rate [ 93 H From Monitor] Respiratory 16 25 H Rate Respiratory Rate [Bilateral Throughout] Blood Pressure 94/59 94/59 91/50 O2 Sat by Pulse 100 94 Oximetry O2 Sat by Pulse Oximetry [ Assessment] 05/29/22 05/29/22 05/29/22 04:08 05:00 05:46 Temperature Pulse Rate 104 H 92 H 97 H Pulse Rate [ Bilateral Throughout] Pulse Rate [ From Monitor] Respiratory 23 Rate Respiratory Rate [Bilateral Throughout] Blood Pressure 94/59 94/54 94/54 O2 Sat by Pulse 97 94 Oximetry O2 Sat by Pulse Oximetry [ Assessment] 05/29/22 05/29/22 05/29/22 06:00 07:00 08:00 Temperature 99.9 F H Pulse Rate 92 H 90 101 H Pulse Rate [ Bilateral Throughout] Pulse Rate [ 90 From Monitor] Respiratory 22 22 15 Rate Respiratory Rate [Bilateral Throughout] Blood Pressure 93/51 90/56 96/55 O2 Sat by Pulse 95 96 99 Oximetry O2 Sat by Pulse Oximetry [ Assessment] 05/29/22 05/29/22 05/29/22 08:02 08:09 09:00 Temperature Pulse Rate 105 H 88 Pulse Rate [ 94 H Bilateral Throughout] Pulse Rate [ From Monitor] Respiratory 15 Rate Respiratory 20 Rate [Bilateral Throughout] Blood Pressure 96/55 87/53 O2 Sat by Pulse 97 98 Oximetry O2 Sat by Pulse Oximetry [ Assessment] 05/29/22 05/29/22 10:00 10:42 Temperature Pulse Rate 94 H 94 H Pulse Rate [ Bilateral Throughout] Pulse Rate [ From Monitor] Respiratory 18 Rate Respiratory Rate [Bilateral Throughout] Blood Pressure 90/53 90/53 O2 Sat by Pulse 99 Oximetry O2 Sat by Pulse Oximetry [ Assessment] Constitutional: no acute distress, alert, other (resting in bed with normal respiratory effort at rest) Eyes: non-icteric ENT: oropharynx moist, other (+ midline tracheostomy to home vent) Neck: supple, no lymphadenopathy, no JVD Effort: mildly labored Ascultation: Bilateral: diminished breath sounds (bases), rhonchi Percussion: Bilateral: not dull Cardiovascular: regular rate and rhythm, other (S1,S2) Gastrointestinal: normoactive bowel sounds, soft, non-tender, non-distended Integumentary: normal, decubitus ulcer (see wound care pictures- wound vac) Extremities: no cyanosis, no edema, pink and warm, pulses normal Neurologic: pupils equal and round, other (functional quadriplegia) Psychiatric: mood appropriate, affect normal CBC and BMP: 05/28/22 04:20 05/28/22 04:20 ABG, PT/INR, D-dimer: ABG ABG pH 7.385 pH Units (7.350-7.450) 05/19/22 06:10 ABG pCO2 51.9 mm Hg 05/19/22 06:10 ABG pO2 70.5 mm Hg (80.0-90.0) L 05/19/22 06:10 ABG O2 Saturation 97.6 % (95.0-99.0) 05/19/22 06:10 PT/INR, D-dimer PT 13.6 Sec. (12.2-14.9) 04/13/22 04:30 INR 0.94 (0.87-1.13) 04/13/22 04:30 Abnormal lab findings: Abnormal Labs 04/02/22 04/02/22 04/02/22 19:39 19:39 19:39 WBC 14.3 H RBC Hgb Hct MCV 96 H MCH MCHC RDW Plt Count 104 L Lymph % (Auto) [place] % (Auto) Lymph # (Auto) [place] # (Auto) Seg Neutrophils % Seg Neuts % (Manual) 94.0 H Lymphocytes % (Manual) 1.0 L Seg Neutrophils # Seg Neutrophils # Man 13.4 H Lymphocytes # (Manual) 0.1 L PT 15.9 H INR 1.14 H ABG pH ABG pO2 ABG HCO3 ABG O2 Saturation ABG Base Excess ABG Hemoglobin Oxyhemoglobin Sodium 151 H Potassium Chloride Carbon Dioxide BUN Creatinine 0.5 L Glucose POC Glucose Calcium 8.2 L Phosphorus Magnesium 1.60 L Total Creatine Kinase CK-MB (CK-2) Rel Index Troponin T 0.048 H C-Reactive Protein Total Protein 4.6 L Albumin 2.7 L LDL Cholesterol Direct 27 L Urine WBC (Auto) Crossmatch 04/02/22 04/03/22 04/03/22 19:42 05:14 06:30 WBC RBC Hgb Hct MCV MCH MCHC RDW Plt Count Lymph % (Auto) [place] % (Auto) Lymph # (Auto) [place] # (Auto) Seg Neutrophils % Seg Neuts % (Manual) Lymphocytes % (Manual) Seg Neutrophils # Seg Neutrophils # Man Lymphocytes # (Manual) PT INR ABG pH 7.471 H 7.496 H ABG pO2 47.8 L 91.0 H ABG HCO3 30.6 H ABG O2 Saturation 94.4 L ABG Base Excess 6.2 H ABG Hemoglobin 11.0 L 12.8 L Oxyhemoglobin 93.1 L Sodium 149 H Potassium 3.4 L Chloride Carbon Dioxide BUN Creatinine 0.4 L Glucose POC Glucose Calcium Phosphorus Magnesium Total Creatine Kinase CK-MB (CK-2) Rel Index Troponin T C-Reactive Protein Total Protein Albumin LDL Cholesterol Direct Urine WBC (Auto) Crossmatch 04/04/22 04/04/22 04/04/22 04:18 04:18 05:50 WBC 11.8 H RBC Hgb Hct MCV MCH MCHC RDW Plt Count 132 L Lymph % (Auto) [place] % (Auto) Lymph # (Auto) [place] # (Auto) Seg Neutrophils % Seg Neuts % (Manual) Lymphocytes % (Manual) Seg Neutrophils # Seg Neutrophils # Man Lymphocytes # (Manual) PT INR ABG pH 7.517 H ABG pO2 115.5 H ABG HCO3 29.9 H ABG O2 Saturation ABG Base Excess 6.7 H ABG Hemoglobin 12.3 L Oxyhemoglobin Sodium Potassium 3.5 L Chloride Carbon Dioxide 31 H BUN Creatinine 0.3 L Glucose 153 H POC Glucose Calcium Phosphorus 1.40 L Magnesium 1.50 L Total Creatine Kinase CK-MB (CK-2) Rel Index Troponin T C-Reactive Protein 31.60 H Total Protein Albumin LDL Cholesterol Direct Urine WBC (Auto) Crossmatch 04/05/22 04/05/22 04/05/22 02:50 05:25 11:28 WBC RBC Hgb Hct MCV MCH MCHC RDW Plt Count Lymph % (Auto) [place] % (Auto) Lymph # (Auto) [place] # (Auto) Seg Neutrophils % Seg Neuts % (Manual) Lymphocytes % (Manual) Seg Neutrophils # Seg Neutrophils # Man Lymphocytes # (Manual) PT INR ABG pH 7.455 H ABG pO2 50.7 L ABG HCO3 30.5 H ABG O2 Saturation 89.4 L ABG Base Excess 5.9 H ABG Hemoglobin 11.8 L Oxyhemoglobin 88.2 L Sodium Potassium Chloride Carbon Dioxide 32 H BUN Creatinine 0.2 L Glucose 110 H POC Glucose 124 H Calcium 7.9 L Phosphorus Magnesium Total Creatine Kinase CK-MB (CK-2) Rel Index Troponin T C-Reactive Protein Total Protein Albumin LDL Cholesterol Direct Urine WBC (Auto) Crossmatch 04/05/22 04/05/22 04/06/22 17:45 Unknown 04:00 WBC RBC 3.55 L Hgb 11.1 L 11.5 L Hct 33.2 L 35.1 L MCV MCH MCHC RDW Plt Count 113 L 114 L Lymph % (Auto) [place] % (Auto) Lymph # (Auto) [place] # (Auto) Seg Neutrophils % Seg Neuts % (Manual) Lymphocytes % (Manual) Seg Neutrophils # Seg Neutrophils # Man Lymphocytes # (Manual) PT INR ABG pH ABG pO2 ABG HCO3 ABG O2 Saturation ABG Base Excess ABG Hemoglobin Oxyhemoglobin Sodium Potassium Chloride Carbon Dioxide BUN Creatinine Glucose POC Glucose Calcium Phosphorus Magnesium Total Creatine Kinase CK-MB (CK-2) Rel Index Troponin T C-Reactive Protein Total Protein Albumin LDL Cholesterol Direct Urine WBC (Auto) 8.0 H Crossmatch 04/06/22 04/06/22 04/07/22 04:00 08:30 00:04 WBC RBC Hgb Hct MCV MCH MCHC RDW Plt Count Lymph % (Auto) [place] % (Auto) Lymph # (Auto) [place] # (Auto) Seg Neutrophils % Seg Neuts % (Manual) Lymphocytes % (Manual) Seg Neutrophils # Seg Neutrophils # Man Lymphocytes # (Manual) PT INR ABG pH ABG pO2 60.8 L ABG HCO3 30.5 H ABG O2 Saturation 93.3 L ABG Base Excess 4.9 H ABG Hemoglobin 12.4 L Oxyhemoglobin 92.1 L Sodium Potassium 3.0 L Chloride Carbon Dioxide BUN Creatinine < 0.2 L Glucose 130 H POC Glucose 117 H Calcium 8.1 L Phosphorus Magnesium Total Creatine Kinase CK-MB (CK-2) Rel Index Troponin T C-Reactive Protein Total Protein Albumin LDL Cholesterol Direct Urine WBC (Auto) Crossmatch 04/07/22 04/07/22 04/07/22 03:51 03:51 03:51 WBC 14.6 H RBC 3.57 L Hgb 11.1 L Hct 33.2 L MCV MCH MCHC RDW Plt Count 118 L Lymph % (Auto) 4.3 L [place] % (Auto) 8.8 H Lymph # (Auto) 0.6 L [place] # (Auto) 1.3 H Seg Neutrophils % 86.6 H Seg Neuts % (Manual) Lymphocytes % (Manual) Seg Neutrophils # 12.7 H Seg Neutrophils # Man Lymphocytes # (Manual) PT 15.2 H INR ABG pH ABG pO2 ABG HCO3 ABG O2 Saturation ABG Base Excess ABG Hemoglobin Oxyhemoglobin Sodium 133 L Potassium Chloride 96.0 L Carbon Dioxide 31 H BUN Creatinine 0.2 L Glucose 130 H POC Glucose Calcium 8.0 L Phosphorus Magnesium Total Creatine Kinase CK-MB (CK-2) Rel Index Troponin T C-Reactive Protein Total Protein Albumin LDL Cholesterol Direct Urine WBC (Auto) Crossmatch 04/07/22 04/07/22 04/08/22 04:25 09:10 04:49 WBC 16.1 H RBC 3.54 L Hgb 10.9 L Hct 33.3 L MCV MCH MCHC RDW Plt Count Lymph % (Auto) [place] % (Auto) Lymph # (Auto) [place] # (Auto) Seg Neutrophils % Seg Neuts % (Manual) Lymphocytes % (Manual) Seg Neutrophils # Seg Neutrophils # Man Lymphocytes # (Manual) PT INR ABG pH ABG pO2 71.0 L 63.4 L ABG HCO3 31.5 H 40.0 H ABG O2 Saturation 94.9 L ABG Base Excess 5.9 H 13.6 H ABG Hemoglobin 11.3 L 9.0 L Oxyhemoglobin 93.6 L Sodium Potassium Chloride Carbon Dioxide BUN Creatinine Glucose POC Glucose Calcium Phosphorus Magnesium Total Creatine Kinase CK-MB (CK-2) Rel Index Troponin T C-Reactive Protein Total Protein Albumin LDL Cholesterol Direct Urine WBC (Auto) Crossmatch 04/08/22 04/08/22 04/08/22 04:49 09:53 10:25 WBC RBC Hgb Hct MCV MCH MCHC RDW Plt Count Lymph % (Auto) [place] % (Auto) Lymph # (Auto) [place] # (Auto) Seg Neutrophils % Seg Neuts % (Manual) Lymphocytes % (Manual) Seg Neutrophils # Seg Neutrophils # Man Lymphocytes # (Manual) PT INR ABG pH ABG pO2 ABG HCO3 34.7 H ABG O2 Saturation ABG Base Excess 7.9 H ABG Hemoglobin 11.0 L Oxyhemoglobin Sodium 136 L Potassium Chloride 97.7 L Carbon Dioxide 33 H BUN Creatinine 0.2 L Glucose 155 H POC Glucose Calcium Phosphorus Magnesium Total Creatine Kinase CK-MB (CK-2) Rel Index Troponin T 0.030 H C-Reactive Protein Total Protein Albumin LDL Cholesterol Direct Urine WBC (Auto) Crossmatch 04/08/22 04/08/22 04/08/22 11:19 17:47 18:06 WBC RBC Hgb Hct MCV MCH MCHC RDW Plt Count Lymph % (Auto) [place] % (Auto) Lymph # (Auto) [place] # (Auto) Seg Neutrophils % Seg Neuts % (Manual) Lymphocytes % (Manual) Seg Neutrophils # Seg Neutrophils # Man Lymphocytes # (Manual) PT INR ABG pH ABG pO2 ABG HCO3 ABG O2 Saturation ABG Base Excess ABG Hemoglobin Oxyhemoglobin Sodium Potassium Chloride Carbon Dioxide BUN Creatinine Glucose POC Glucose 121 H Calcium Phosphorus Magnesium Total Creatine Kinase 31 L 46 L CK-MB (CK-2) Rel Index 6.4 H 5.6 H Troponin T 0.030 H 0.031 H C-Reactive Protein Total Protein Albumin LDL Cholesterol Direct Urine WBC (Auto) Crossmatch 04/09/22 04/09/22 04/09/22 04:35 04:35 11:24 WBC 11.5 H RBC 3.16 L Hgb 9.9 L Hct 29.4 L MCV MCH MCHC RDW Plt Count 131 L Lymph % (Auto) [place] % (Auto) Lymph # (Auto) [place] # (Auto) Seg Neutrophils % Seg Neuts % (Manual) Lymphocytes % (Manual) Seg Neutrophils # Seg Neutrophils # Man Lymphocytes # (Manual) PT INR ABG pH ABG pO2 ABG HCO3 ABG O2 Saturation ABG Base Excess ABG Hemoglobin Oxyhemoglobin Sodium Potassium Chloride 97.1 L Carbon Dioxide 35 H BUN Creatinine < 0.2 L Glucose 145 H POC Glucose 147 H Calcium Phosphorus Magnesium Total Creatine Kinase CK-MB (CK-2) Rel Index Troponin T C-Reactive Protein Total Protein Albumin LDL Cholesterol Direct Urine WBC (Auto) Crossmatch 04/09/22 04/09/22 04/09/22 13:00 17:32 23:48 WBC RBC Hgb Hct MCV MCH MCHC RDW Plt Count Lymph % (Auto) [place] % (Auto) Lymph # (Auto) [place] # (Auto) Seg Neutrophils % Seg Neuts % (Manual) Lymphocytes % (Manual) Seg Neutrophils # Seg Neutrophils # Man Lymphocytes # (Manual) PT INR ABG pH ABG pO2 66.6 L ABG HCO3 38.2 H ABG O2 Saturation 94.4 L ABG Base Excess 10.7 H ABG Hemoglobin 10.7 L Oxyhemoglobin 92.8 L Sodium Potassium Chloride Carbon Dioxide BUN Creatinine Glucose POC Glucose 143 H 114 H Calcium Phosphorus Magnesium Total Creatine Kinase CK-MB (CK-2) Rel Index Troponin T C-Reactive Protein Total Protein Albumin LDL Cholesterol Direct Urine WBC (Auto) Crossmatch 04/10/22 04/10/22 04/10/22 04:48 04:48 05:34 WBC RBC 2.91 L Hgb 9.1 L Hct 27.7 L MCV 95 H MCH MCHC RDW Plt Count Lymph % (Auto) [place] % (Auto) Lymph # (Auto) [place] # (Auto) Seg Neutrophils % Seg Neuts % (Manual) Lymphocytes % (Manual) Seg Neutrophils # Seg Neutrophils # Man Lymphocytes # (Manual) PT INR ABG pH ABG pO2 ABG HCO3 ABG O2 Saturation ABG Base Excess ABG Hemoglobin Oxyhemoglobin Sodium Potassium Chloride 95.7 L Carbon Dioxide 38 H BUN Creatinine < 0.2 L Glucose 118 H POC Glucose 127 H Calcium Phosphorus Magnesium Total Creatine Kinase CK-MB (CK-2) Rel Index Troponin T C-Reactive Protein Total Protein Albumin LDL Cholesterol Direct Urine WBC (Auto) Crossmatch 04/10/22 04/11/22 04/11/22 23:10 04:15 04:15 WBC 17.2 H RBC 2.98 L Hgb 9.2 L Hct 27.9 L MCV MCH MCHC RDW Plt Count Lymph % (Auto) [place] % (Auto) Lymph # (Auto) [place] # (Auto) Seg Neutrophils % Seg Neuts % (Manual) Lymphocytes % (Manual) Seg Neutrophils # Seg Neutrophils # Man Lymphocytes # (Manual) PT INR ABG pH ABG pO2 ABG HCO3 ABG O2 Saturation ABG Base Excess ABG Hemoglobin Oxyhemoglobin Sodium Potassium Chloride 96.1 L Carbon Dioxide 35 H BUN Creatinine < 0.2 L Glucose 138 H POC Glucose 106 H Calcium 8.3 L Phosphorus Magnesium Total Creatine Kinase CK-MB (CK-2) Rel Index Troponin T C-Reactive Protein Total Protein Albumin LDL Cholesterol Direct Urine WBC (Auto) Crossmatch 04/11/22 04/11/22 04/11/22 05:31 13:18 16:20 WBC RBC Hgb Hct MCV MCH MCHC RDW Plt Count Lymph % (Auto) [place] % (Auto) Lymph # (Auto) [place] # (Auto) Seg Neutrophils % Seg Neuts % (Manual) Lymphocytes % (Manual) Seg Neutrophils # Seg Neutrophils # Man Lymphocytes # (Manual) PT INR ABG pH ABG pO2 57.8 L ABG HCO3 40.5 H ABG O2 Saturation 90.6 L ABG Base Excess 12.6 H ABG Hemoglobin 10.5 L Oxyhemoglobin 89.0 L Sodium Potassium Chloride Carbon Dioxide BUN Creatinine Glucose POC Glucose 129 H 132 H Calcium Phosphorus Magnesium Total Creatine Kinase CK-MB (CK-2) Rel Index Troponin T C-Reactive Protein Total Protein Albumin LDL Cholesterol Direct Urine WBC (Auto) Crossmatch 04/11/22 04/11/22 04/12/22 17:29 23:17 04:00 WBC 17.4 H RBC 2.96 L Hgb 9.0 L Hct 28.0 L MCV 95 H MCH MCHC RDW Plt Count Lymph % (Auto) [place] % (Auto) Lymph # (Auto) [place] # (Auto) Seg Neutrophils % Seg Neuts % (Manual) Lymphocytes % (Manual) Seg Neutrophils # Seg Neutrophils # Man Lymphocytes # (Manual) PT INR ABG pH ABG pO2 ABG HCO3 ABG O2 Saturation ABG Base Excess ABG Hemoglobin Oxyhemoglobin Sodium Potassium Chloride Carbon Dioxide BUN Creatinine Glucose POC Glucose 125 H 151 H Calcium Phosphorus Magnesium Total Creatine Kinase CK-MB (CK-2) Rel Index Troponin T C-Reactive Protein Total Protein Albumin LDL Cholesterol Direct Urine WBC (Auto) Crossmatch 04/12/22 04/12/22 04/12/22 04:00 17:03 23:39 WBC RBC Hgb Hct MCV MCH MCHC RDW Plt Count Lymph % (Auto) [place] % (Auto) Lymph # (Auto) [place] # (Auto) Seg Neutrophils % Seg Neuts % (Manual) Lymphocytes % (Manual) Seg Neutrophils # Seg Neutrophils # Man Lymphocytes # (Manual) PT INR ABG pH ABG pO2 ABG HCO3 ABG O2 Saturation ABG Base Excess ABG Hemoglobin Oxyhemoglobin Sodium Potassium Chloride 97.4 L Carbon Dioxide 37 H BUN Creatinine < 0.2 L Glucose 127 H POC Glucose 106 H 107 H Calcium Phosphorus Magnesium Total Creatine Kinase CK-MB (CK-2) Rel Index Troponin T C-Reactive Protein Total Protein Albumin LDL Cholesterol Direct Urine WBC (Auto) Crossmatch 04/13/22 04/13/22 04/13/22 04:30 04:30 17:39 WBC 14.1 H RBC 2.66 L Hgb 8.4 L Hct 25.5 L MCV 96 H MCH MCHC RDW Plt Count Lymph % (Auto) [place] % (Auto) Lymph # (Auto) [place] # (Auto) Seg Neutrophils % Seg Neuts % (Manual) Lymphocytes % (Manual) Seg Neutrophils # Seg Neutrophils # Man Lymphocytes # (Manual) PT INR ABG pH ABG pO2 ABG HCO3 ABG O2 Saturation ABG Base Excess ABG Hemoglobin Oxyhemoglobin Sodium Potassium Chloride 93.9 L Carbon Dioxide 39 H BUN Creatinine < 0.2 L Glucose POC Glucose 134 H Calcium Phosphorus 1.90 L Magnesium Total Creatine Kinase CK-MB (CK-2) Rel Index Troponin T C-Reactive Protein Total Protein Albumin LDL Cholesterol Direct Urine WBC (Auto) Crossmatch 04/14/22 04/14/22 04/14/22 05:03 05:03 09:10 WBC 15.6 H RBC 3.02 L Hgb 9.3 L Hct 28.8 L MCV 95 H MCH MCHC RDW Plt Count Lymph % (Auto) [place] % (Auto) Lymph # (Auto) [place] # (Auto) Seg Neutrophils % Seg Neuts % (Manual) Lymphocytes % (Manual) Seg Neutrophils # Seg Neutrophils # Man Lymphocytes # (Manual) PT INR ABG pH ABG pO2 66.9 L ABG HCO3 44.5 H ABG O2 Saturation ABG Base Excess 17.2 H ABG Hemoglobin 8.1 L Oxyhemoglobin 94.8 L Sodium Potassium Chloride 93.8 L Carbon Dioxide 42 H* BUN Creatinine < 0.2 L Glucose 117 H POC Glucose Calcium Phosphorus Magnesium Total Creatine Kinase CK-MB (CK-2) Rel Index Troponin T C-Reactive Protein Total Protein Albumin LDL Cholesterol Direct Urine WBC (Auto) Crossmatch 04/15/22 04/15/22 04/16/22 04:44 04:44 04:16 WBC 13.0 H 12.6 H RBC 3.19 L 3.09 L Hgb 9.6 L 9.5 L Hct 30.2 L 29.1 L MCV 95 H MCH MCHC RDW Plt Count 456 H Lymph % (Auto) [place] % (Auto) Lymph # (Auto) [place] # (Auto) Seg Neutrophils % Seg Neuts % (Manual) Lymphocytes % (Manual) Seg Neutrophils # Seg Neutrophils # Man Lymphocytes # (Manual) PT INR ABG pH ABG pO2 ABG HCO3 ABG O2 Saturation ABG Base Excess ABG Hemoglobin Oxyhemoglobin Sodium Potassium Chloride 95.5 L Carbon Dioxide 37 H BUN Creatinine < 0.2 L Glucose POC Glucose Calcium Phosphorus Magnesium Total Creatine Kinase CK-MB (CK-2) Rel Index Troponin T C-Reactive Protein Total Protein Albumin LDL Cholesterol Direct Urine WBC (Auto) Crossmatch 04/16/22 04/16/22 04/16/22 04:16 05:00 14:00 WBC RBC Hgb Hct MCV MCH MCHC RDW Plt Count Lymph % (Auto) [place] % (Auto) Lymph # (Auto) [place] # (Auto) Seg Neutrophils % Seg Neuts % (Manual) Lymphocytes % (Manual) Seg Neutrophils # Seg Neutrophils # Man Lymphocytes # (Manual) PT INR ABG pH 7.324 L ABG pO2 55.6 L ABG HCO3 45.3 H ABG O2 Saturation 87.1 L ABG Base Excess 16.6 H ABG Hemoglobin 8.6 L Oxyhemoglobin 85.7 L Sodium Potassium Chloride 97.6 L Carbon Dioxide 36 H BUN Creatinine < 0.2 L Glucose 109 H POC Glucose 120 H Calcium Phosphorus Magnesium Total Creatine Kinase CK-MB (CK-2) Rel Index Troponin T C-Reactive Protein Total Protein Albumin LDL Cholesterol Direct Urine WBC (Auto) Crossmatch 04/17/22 04/17/22 04/17/22 04:36 04:36 04:57 WBC 14.4 H RBC 3.08 L Hgb 9.4 L Hct 29.0 L MCV MCH MCHC RDW Plt Count Lymph % (Auto) [place] % (Auto) Lymph # (Auto) [place] # (Auto) Seg Neutrophils % Seg Neuts % (Manual) Lymphocytes % (Manual) Seg Neutrophils # Seg Neutrophils # Man Lymphocytes # (Manual) PT INR ABG pH ABG pO2 ABG HCO3 ABG O2 Saturation ABG Base Excess ABG Hemoglobin Oxyhemoglobin Sodium Potassium Chloride 95.9 L Carbon Dioxide 39 H BUN Creatinine < 0.2 L Glucose 140 H POC Glucose 137 H Calcium 8.3 L Phosphorus Magnesium Total Creatine Kinase CK-MB (CK-2) Rel Index Troponin T C-Reactive Protein Total Protein Albumin LDL Cholesterol Direct Urine WBC (Auto) Crossmatch 04/17/22 04/17/22 04/18/22 09:15 18:01 04:20 WBC 11.2 H RBC 3.00 L Hgb 9.3 L Hct 28.6 L MCV 95 H MCH MCHC RDW Plt Count Lymph % (Auto) [place] % (Auto) Lymph # (Auto) [place] # (Auto) Seg Neutrophils % Seg Neuts % (Manual) Lymphocytes % (Manual) Seg Neutrophils # Seg Neutrophils # Man Lymphocytes # (Manual) PT INR ABG pH 7.345 L ABG pO2 ABG HCO3 48.2 H ABG O2 Saturation ABG Base Excess 19.2 H ABG Hemoglobin 9.7 L Oxyhemoglobin Sodium Potassium Chloride Carbon Dioxide BUN Creatinine Glucose POC Glucose 129 H Calcium Phosphorus Magnesium Total Creatine Kinase CK-MB (CK-2) Rel Index Troponin T C-Reactive Protein Total Protein Albumin LDL Cholesterol Direct Urine WBC (Auto) Crossmatch 04/18/22 04/18/22 04/18/22 04:20 17:35 23:50 WBC RBC Hgb Hct MCV MCH MCHC RDW Plt Count Lymph % (Auto) [place] % (Auto) Lymph # (Auto) [place] # (Auto) Seg Neutrophils % Seg Neuts % (Manual) Lymphocytes % (Manual) Seg Neutrophils # Seg Neutrophils # Man Lymphocytes # (Manual) PT INR ABG pH ABG pO2 ABG HCO3 ABG O2 Saturation ABG Base Excess ABG Hemoglobin Oxyhemoglobin Sodium Potassium Chloride 96.8 L Carbon Dioxide 43 H* BUN 22 H Creatinine < 0.2 L Glucose 137 H POC Glucose 128 H 123 H Calcium 8.2 L Phosphorus Magnesium Total Creatine Kinase CK-MB (CK-2) Rel Index Troponin T C-Reactive Protein Total Protein Albumin LDL Cholesterol Direct Urine WBC (Auto) Crossmatch 04/19/22 04/19/22 04/19/22 04:08 04:08 08:50 WBC 16.8 H RBC 3.18 L Hgb 9.8 L Hct 30.1 L MCV 95 H MCH MCHC RDW Plt Count Lymph % (Auto) [place] % (Auto) Lymph # (Auto) [place] # (Auto) Seg Neutrophils % Seg Neuts % (Manual) Lymphocytes % (Manual) Seg Neutrophils # Seg Neutrophils # Man Lymphocytes # (Manual) PT INR ABG pH ABG pO2 56.0 L ABG HCO3 47.1 H ABG O2 Saturation 93.3 L ABG Base Excess 20.1 H ABG Hemoglobin 8.0 L Oxyhemoglobin 91.8 L Sodium Potassium Chloride 96.2 L Carbon Dioxide 40 H BUN 24 H Creatinine < 0.2 L Glucose 125 H POC Glucose Calcium 8.3 L Phosphorus Magnesium Total Creatine Kinase CK-MB (CK-2) Rel Index Troponin T C-Reactive Protein Total Protein Albumin LDL Cholesterol Direct Urine WBC (Auto) Crossmatch 04/19/22 04/20/22 04/20/22 12:02 00:40 04:49 WBC 14.7 H RBC 3.36 L Hgb 10.3 L Hct 32.0 L MCV 95 H MCH MCHC RDW Plt Count Lymph % (Auto) [place] % (Auto) Lymph # (Auto) [place] # (Auto) Seg Neutrophils % Seg Neuts % (Manual) Lymphocytes % (Manual) Seg Neutrophils # Seg Neutrophils # Man Lymphocytes # (Manual) PT INR ABG pH ABG pO2 ABG HCO3 ABG O2 Saturation ABG Base Excess ABG Hemoglobin Oxyhemoglobin Sodium Potassium Chloride Carbon Dioxide BUN Creatinine Glucose POC Glucose 124 H 140 H Calcium Phosphorus Magnesium Total Creatine Kinase CK-MB (CK-2) Rel Index Troponin T C-Reactive Protein Total Protein Albumin LDL Cholesterol Direct Urine WBC (Auto) Crossmatch 04/20/22 04/20/22 04/21/22 05:36 11:40 04:05 WBC RBC Hgb Hct MCV MCH MCHC RDW Plt Count Lymph % (Auto) [place] % (Auto) Lymph # (Auto) [place] # (Auto) Seg Neutrophils % Seg Neuts % (Manual) Lymphocytes % (Manual) Seg Neutrophils # Seg Neutrophils # Man Lymphocytes # (Manual) PT INR ABG pH ABG pO2 ABG HCO3 ABG O2 Saturation ABG Base Excess ABG Hemoglobin Oxyhemoglobin Sodium Potassium Chloride 93.4 L Carbon Dioxide 40 H BUN 25 H Creatinine < 0.2 L Glucose 122 H POC Glucose 125 H 128 H Calcium Phosphorus Magnesium Total Creatine Kinase CK-MB (CK-2) Rel Index Troponin T C-Reactive Protein Total Protein Albumin LDL Cholesterol Direct Urine WBC (Auto) Crossmatch 04/21/22 04/22/22 04/22/22 10:31 05:03 05:03 WBC 12.6 H 12.7 H RBC 2.83 L 2.96 L Hgb 8.6 L 9.0 L Hct 26.9 L 28.0 L MCV 95 H 95 H MCH MCHC RDW Plt Count Lymph % (Auto) [place] % (Auto) Lymph # (Auto) [place] # (Auto) Seg Neutrophils % Seg Neuts % (Manual) Lymphocytes % (Manual) Seg Neutrophils # Seg Neutrophils # Man Lymphocytes # (Manual) PT INR ABG pH ABG pO2 ABG HCO3 ABG O2 Saturation ABG Base Excess ABG Hemoglobin Oxyhemoglobin Sodium Potassium Chloride 93.9 L Carbon Dioxide 43 H* BUN 23 H Creatinine < 0.2 L Glucose 137 H POC Glucose Calcium Phosphorus Magnesium Total Creatine Kinase CK-MB (CK-2) Rel Index Troponin T C-Reactive Protein Total Protein Albumin LDL Cholesterol Direct Urine WBC (Auto) Crossmatch 04/22/22 04/23/22 04/24/22 08:34 09:40 04:29 WBC 14.4 H RBC 2.74 L Hgb 8.4 L Hct 25.7 L MCV MCH MCHC RDW Plt Count Lymph % (Auto) [place] % (Auto) Lymph # (Auto) [place] # (Auto) Seg Neutrophils % Seg Neuts % (Manual) Lymphocytes % (Manual) Seg Neutrophils # Seg Neutrophils # Man Lymphocytes # (Manual) PT INR ABG pH ABG pO2 54.1 L 56.8 L ABG HCO3 48.5 H 49.0 H ABG O2 Saturation 92.1 L 90.9 L ABG Base Excess 20.9 H 20.8 H ABG Hemoglobin 9.0 L 8.4 L Oxyhemoglobin 90.6 L 89.5 L Sodium Potassium Chloride Carbon Dioxide BUN Creatinine Glucose POC Glucose Calcium Phosphorus Magnesium Total Creatine Kinase CK-MB (CK-2) Rel Index Troponin T C-Reactive Protein Total Protein Albumin LDL Cholesterol Direct Urine WBC (Auto) Crossmatch 04/24/22 04/25/22 04/26/22 04:29 09:00 04:22 WBC RBC 2.88 L Hgb 8.9 L Hct 26.8 L MCV MCH MCHC RDW Plt Count Lymph % (Auto) [place] % (Auto) Lymph # (Auto) [place] # (Auto) Seg Neutrophils % Seg Neuts % (Manual) Lymphocytes % (Manual) Seg Neutrophils # Seg Neutrophils # Man Lymphocytes # (Manual) PT INR ABG pH 7.457 H ABG pO2 66.7 L ABG HCO3 42.6 H ABG O2 Saturation ABG Base Excess 15.3 H ABG Hemoglobin 8.8 L Oxyhemoglobin 94.1 L Sodium Potassium Chloride 90.7 L Carbon Dioxide 40 H BUN Creatinine < 0.2 L Glucose 133 H POC Glucose Calcium Phosphorus Magnesium Total Creatine Kinase CK-MB (CK-2) Rel Index Troponin T C-Reactive Protein Total Protein Albumin LDL Cholesterol Direct Urine WBC (Auto) Crossmatch 04/26/22 04/29/22 04/29/22 04:22 04:18 04:18 WBC 13.5 H RBC 2.96 L Hgb 8.9 L Hct 27.7 L MCV MCH MCHC RDW Plt Count Lymph % (Auto) [place] % (Auto) Lymph # (Auto) [place] # (Auto) Seg Neutrophils % Seg Neuts % (Manual) Lymphocytes % (Manual) Seg Neutrophils # Seg Neutrophils # Man Lymphocytes # (Manual) PT INR ABG pH ABG pO2 ABG HCO3 ABG O2 Saturation ABG Base Excess ABG Hemoglobin Oxyhemoglobin Sodium Potassium Chloride 93.2 L 95.2 L Carbon Dioxide 37 H 38 H BUN Creatinine < 0.2 L < 0.2 L Glucose 114 H 116 H POC Glucose Calcium Phosphorus Magnesium Total Creatine Kinase CK-MB (CK-2) Rel Index Troponin T C-Reactive Protein Total Protein Albumin LDL Cholesterol Direct Urine WBC (Auto) Crossmatch 05/02/22 05/03/22 05/03/22 04:29 04:02 04:02 WBC 12.9 H 12.3 H RBC 2.82 L 2.83 L Hgb 8.4 L 8.4 L Hct 26.2 L 26.0 L MCV MCH MCHC RDW Plt Count Lymph % (Auto) [place] % (Auto) Lymph # (Auto) [place] # (Auto) Seg Neutrophils % Seg Neuts % (Manual) Lymphocytes % (Manual) Seg Neutrophils # Seg Neutrophils # Man Lymphocytes # (Manual) PT INR ABG pH ABG pO2 ABG HCO3 ABG O2 Saturation ABG Base Excess ABG Hemoglobin Oxyhemoglobin Sodium 134 L Potassium Chloride 90.5 L Carbon Dioxide 38 H BUN 21 H Creatinine < 0.2 L Glucose 126 H POC Glucose Calcium Phosphorus Magnesium Total Creatine Kinase CK-MB (CK-2) Rel Index Troponin T C-Reactive Protein Total Protein Albumin LDL Cholesterol Direct Urine WBC (Auto) Crossmatch 05/03/22 05/03/22 05/04/22 12:02 17:42 09:36 WBC RBC Hgb Hct MCV MCH MCHC RDW Plt Count Lymph % (Auto) [place] % (Auto) Lymph # (Auto) [place] # (Auto) Seg Neutrophils % Seg Neuts % (Manual) Lymphocytes % (Manual) Seg Neutrophils # Seg Neutrophils # Man Lymphocytes # (Manual) PT INR ABG pH ABG pO2 55.4 L ABG HCO3 43.7 H ABG O2 Saturation 87.4 L ABG Base Excess 16.1 H ABG Hemoglobin 9.1 L Oxyhemoglobin 85.7 L Sodium Potassium Chloride Carbon Dioxide BUN Creatinine Glucose POC Glucose 139 H 131 H Calcium Phosphorus Magnesium Total Creatine Kinase CK-MB (CK-2) Rel Index Troponin T C-Reactive Protein Total Protein Albumin LDL Cholesterol Direct Urine WBC (Auto) Crossmatch 05/04/22 05/04/22 05/05/22 17:08 23:10 04:23 WBC 14.4 H RBC 2.75 L Hgb 8.2 L Hct 25.2 L MCV MCH MCHC RDW Plt Count Lymph % (Auto) [place] % (Auto) Lymph # (Auto) [place] # (Auto) Seg Neutrophils % Seg Neuts % (Manual) Lymphocytes % (Manual) Seg Neutrophils # Seg Neutrophils # Man Lymphocytes # (Manual) PT INR ABG pH ABG pO2 ABG HCO3 ABG O2 Saturation ABG Base Excess ABG Hemoglobin Oxyhemoglobin Sodium Potassium Chloride Carbon Dioxide BUN Creatinine Glucose POC Glucose 124 H 115 H Calcium Phosphorus Magnesium Total Creatine Kinase CK-MB (CK-2) Rel Index Troponin T C-Reactive Protein Total Protein Albumin LDL Cholesterol Direct Urine WBC (Auto) Crossmatch 05/05/22 05/05/22 05/06/22 04:23 21:39 05:13 WBC RBC Hgb Hct MCV MCH MCHC RDW Plt Count Lymph % (Auto) [place] % (Auto) Lymph # (Auto) [place] # (Auto) Seg Neutrophils % Seg Neuts % (Manual) Lymphocytes % (Manual) Seg Neutrophils # Seg Neutrophils # Man Lymphocytes # (Manual) PT INR ABG pH ABG pO2 ABG HCO3 ABG O2 Saturation ABG Base Excess ABG Hemoglobin Oxyhemoglobin Sodium Potassium Chloride 91.3 L Carbon Dioxide 38 H BUN 23 H Creatinine < 0.2 L Glucose 128 H POC Glucose 141 H 136 H Calcium Phosphorus Magnesium Total Creatine Kinase CK-MB (CK-2) Rel Index Troponin T C-Reactive Protein Total Protein Albumin LDL Cholesterol Direct Urine WBC (Auto) Crossmatch 05/07/22 05/07/22 05/08/22 05:29 22:15 05:48 WBC RBC Hgb Hct MCV MCH MCHC RDW Plt Count Lymph % (Auto) [place] % (Auto) Lymph # (Auto) [place] # (Auto) Seg Neutrophils % Seg Neuts % (Manual) Lymphocytes % (Manual) Seg Neutrophils # Seg Neutrophils # Man Lymphocytes # (Manual) PT INR ABG pH ABG pO2 ABG HCO3 ABG O2 Saturation ABG Base Excess ABG Hemoglobin Oxyhemoglobin Sodium Potassium Chloride Carbon Dioxide BUN Creatinine Glucose POC Glucose 125 H 142 H 122 H Calcium Phosphorus Magnesium Total Creatine Kinase CK-MB (CK-2) Rel Index Troponin T C-Reactive Protein Total Protein Albumin LDL Cholesterol Direct Urine WBC (Auto) Crossmatch 05/08/22 05/08/22 05/09/22 14:04 21:48 15:15 WBC RBC 2.61 L Hgb 7.7 L Hct 23.2 L MCV MCH MCHC RDW Plt Count Lymph % (Auto) 8.1 L [place] % (Auto) Lymph # (Auto) 0.9 L [place] # (Auto) Seg Neutrophils % 86.1 H Seg Neuts % (Manual) Lymphocytes % (Manual) Seg Neutrophils # 9.2 H Seg Neutrophils # Man Lymphocytes # (Manual) PT INR ABG pH ABG pO2 ABG HCO3 ABG O2 Saturation ABG Base Excess ABG Hemoglobin Oxyhemoglobin Sodium Potassium Chloride Carbon Dioxide BUN Creatinine Glucose POC Glucose 112 H 107 H Calcium Phosphorus Magnesium Total Creatine Kinase CK-MB (CK-2) Rel Index Troponin T C-Reactive Protein Total Protein Albumin LDL Cholesterol Direct Urine WBC (Auto) Crossmatch 05/09/22 05/09/22 05/09/22 15:15 15:39 21:15 WBC RBC Hgb Hct MCV MCH MCHC RDW Plt Count Lymph % (Auto) [place] % (Auto) Lymph # (Auto) [place] # (Auto) Seg Neutrophils % Seg Neuts % (Manual) Lymphocytes % (Manual) Seg Neutrophils # Seg Neutrophils # Man Lymphocytes # (Manual) PT INR ABG pH ABG pO2 ABG HCO3 ABG O2 Saturation ABG Base Excess ABG Hemoglobin Oxyhemoglobin Sodium Potassium Chloride 92.9 L Carbon Dioxide 40 H BUN Creatinine < 0.2 L Glucose 141 H POC Glucose 118 H 112 H Calcium Phosphorus Magnesium Total Creatine Kinase CK-MB (CK-2) Rel Index Troponin T C-Reactive Protein Total Protein Albumin LDL Cholesterol Direct Urine WBC (Auto) Crossmatch 05/10/22 05/12/22 05/13/22 15:14 00:25 04:02 WBC 13.3 H RBC 3.14 L Hgb 8.7 L Hct 28.0 L MCV MCH MCHC 31 L RDW Plt Count Lymph % (Auto) [place] % (Auto) Lymph # (Auto) [place] # (Auto) Seg Neutrophils % Seg Neuts % (Manual) Lymphocytes % (Manual) Seg Neutrophils # Seg Neutrophils # Man Lymphocytes # (Manual) PT INR ABG pH ABG pO2 ABG HCO3 ABG O2 Saturation ABG Base Excess ABG Hemoglobin Oxyhemoglobin Sodium Potassium Chloride Carbon Dioxide BUN Creatinine Glucose POC Glucose 113 H 158 H Calcium Phosphorus Magnesium Total Creatine Kinase CK-MB (CK-2) Rel Index Troponin T C-Reactive Protein Total Protein Albumin LDL Cholesterol Direct Urine WBC (Auto) Crossmatch 05/13/22 05/13/22 05/13/22 04:02 06:32 13:09 WBC RBC Hgb Hct MCV MCH MCHC RDW Plt Count Lymph % (Auto) [place] % (Auto) Lymph # (Auto) [place] # (Auto) Seg Neutrophils % Seg Neuts % (Manual) Lymphocytes % (Manual) Seg Neutrophils # Seg Neutrophils # Man Lymphocytes # (Manual) PT INR ABG pH ABG pO2 ABG HCO3 ABG O2 Saturation ABG Base Excess ABG Hemoglobin Oxyhemoglobin Sodium 135 L Potassium Chloride 91.1 L Carbon Dioxide 40 H BUN 23 H Creatinine < 0.2 L Glucose 139 H POC Glucose 129 H 117 H Calcium Phosphorus Magnesium Total Creatine Kinase CK-MB (CK-2) Rel Index Troponin T C-Reactive Protein Total Protein Albumin LDL Cholesterol Direct Urine WBC (Auto) Crossmatch 05/13/22 05/14/22 05/14/22 21:28 05:44 07:35 WBC RBC Hgb Hct MCV MCH MCHC RDW Plt Count Lymph % (Auto) [place] % (Auto) Lymph # (Auto) [place] # (Auto) Seg Neutrophils % Seg Neuts % (Manual) Lymphocytes % (Manual) Seg Neutrophils # Seg Neutrophils # Man Lymphocytes # (Manual) PT INR ABG pH ABG pO2 ABG HCO3 ABG O2 Saturation ABG Base Excess ABG Hemoglobin Oxyhemoglobin Sodium Potassium Chloride Carbon Dioxide BUN Creatinine Glucose POC Glucose 109 H 130 H 125 H Calcium Phosphorus Magnesium Total Creatine Kinase CK-MB (CK-2) Rel Index Troponin T C-Reactive Protein Total Protein Albumin LDL Cholesterol Direct Urine WBC (Auto) Crossmatch 05/14/22 05/14/22 05/15/22 16:26 23:44 10:44 WBC 13.9 H RBC 2.71 L Hgb 7.5 L Hct 23.5 L MCV MCH MCHC RDW 15.9 H Plt Count Lymph % (Auto) [place] % (Auto) Lymph # (Auto) [place] # (Auto) Seg Neutrophils % Seg Neuts % (Manual) Lymphocytes % (Manual) Seg Neutrophils # Seg Neutrophils # Man Lymphocytes # (Manual) PT INR ABG pH ABG pO2 ABG HCO3 ABG O2 Saturation ABG Base Excess ABG Hemoglobin Oxyhemoglobin Sodium Potassium Chloride Carbon Dioxide BUN Creatinine Glucose POC Glucose 112 H 189 H Calcium Phosphorus Magnesium Total Creatine Kinase CK-MB (CK-2) Rel Index Troponin T C-Reactive Protein Total Protein Albumin LDL Cholesterol Direct Urine WBC (Auto) Crossmatch 05/15/22 05/16/22 05/16/22 10:44 14:50 21:36 WBC RBC Hgb Hct MCV MCH MCHC RDW Plt Count Lymph % (Auto) [place] % (Auto) Lymph # (Auto) [place] # (Auto) Seg Neutrophils % Seg Neuts % (Manual) Lymphocytes % (Manual) Seg Neutrophils # Seg Neutrophils # Man Lymphocytes # (Manual) PT INR ABG pH ABG pO2 ABG HCO3 ABG O2 Saturation ABG Base Excess ABG Hemoglobin Oxyhemoglobin Sodium 135 L Potassium 3.3 L D Chloride 91.5 L Carbon Dioxide 33 H D BUN 21 H Creatinine < 0.2 L Glucose 118 H POC Glucose 133 H 123 H Calcium 7.9 L Phosphorus Magnesium Total Creatine Kinase CK-MB (CK-2) Rel Index Troponin T C-Reactive Protein Total Protein Albumin LDL Cholesterol Direct Urine WBC (Auto) Crossmatch 05/17/22 05/17/22 05/17/22 03:41 03:41 05:51 WBC 16.2 H RBC 2.53 L Hgb 7.0 L Hct 21.5 L MCV MCH MCHC RDW 16.2 H Plt Count Lymph % (Auto) [place] % (Auto) Lymph # (Auto) [place] # (Auto) Seg Neutrophils % Seg Neuts % (Manual) 96.0 H Lymphocytes % (Manual) 1.0 L Seg Neutrophils # Seg Neutrophils # Man 15.6 H Lymphocytes # (Manual) 0.2 L PT INR ABG pH ABG pO2 ABG HCO3 ABG O2 Saturation ABG Base Excess ABG Hemoglobin Oxyhemoglobin Sodium 132 L Potassium Chloride 95.0 L Carbon Dioxide BUN 22 H Creatinine < 0.2 L Glucose 122 H POC Glucose 123 H Calcium Phosphorus Magnesium Total Creatine Kinase CK-MB (CK-2) Rel Index Troponin T C-Reactive Protein 31.20 H Total Protein Albumin LDL Cholesterol Direct Urine WBC (Auto) Crossmatch 05/17/22 05/17/22 05/18/22 07:53 21:03 05:41 WBC 15.0 H RBC 2.58 L Hgb 7.1 L Hct 22.3 L MCV MCH MCHC RDW 16.1 H Plt Count Lymph % (Auto) [place] % (Auto) Lymph # (Auto) [place] # (Auto) Seg Neutrophils % Seg Neuts % (Manual) Lymphocytes % (Manual) Seg Neutrophils # Seg Neutrophils # Man Lymphocytes # (Manual) PT INR ABG pH ABG pO2 ABG HCO3 ABG O2 Saturation ABG Base Excess ABG Hemoglobin Oxyhemoglobin Sodium Potassium Chloride Carbon Dioxide BUN Creatinine Glucose POC Glucose 106 H 123 H Calcium Phosphorus Magnesium Total Creatine Kinase CK-MB (CK-2) Rel Index Troponin T C-Reactive Protein Total Protein Albumin LDL Cholesterol Direct Urine WBC (Auto) Crossmatch 05/18/22 05/18/22 05/18/22 05:41 13:56 21:08 WBC RBC Hgb Hct MCV MCH MCHC RDW Plt Count Lymph % (Auto) [place] % (Auto) Lymph # (Auto) [place] # (Auto) Seg Neutrophils % Seg Neuts % (Manual) Lymphocytes % (Manual) Seg Neutrophils # Seg Neutrophils # Man Lymphocytes # (Manual) PT INR ABG pH ABG pO2 ABG HCO3 ABG O2 Saturation ABG Base Excess ABG Hemoglobin Oxyhemoglobin Sodium Potassium Chloride 97.9 L Carbon Dioxide BUN 23 H Creatinine < 0.2 L Glucose 128 H POC Glucose 137 H Calcium Phosphorus Magnesium Total Creatine Kinase CK-MB (CK-2) Rel Index Troponin T C-Reactive Protein Total Protein Albumin LDL Cholesterol Direct Urine WBC (Auto) Crossmatch See Detail 05/18/22 05/19/22 05/20/22 23:21 06:10 00:43 WBC 13.5 H RBC 2.53 L Hgb 7.2 L Hct 21.5 L MCV MCH MCHC RDW 16.4 H Plt Count Lymph % (Auto) [place] % (Auto) Lymph # (Auto) [place] # (Auto) Seg Neutrophils % Seg Neuts % (Manual) Lymphocytes % (Manual) Seg Neutrophils # Seg Neutrophils # Man Lymphocytes # (Manual) PT INR ABG pH ABG pO2 70.5 L ABG HCO3 30.3 H ABG O2 Saturation ABG Base Excess 4.9 H ABG Hemoglobin 5.9 L Oxyhemoglobin Sodium Potassium Chloride Carbon Dioxide BUN Creatinine Glucose POC Glucose 151 H Calcium Phosphorus Magnesium Total Creatine Kinase CK-MB (CK-2) Rel Index Troponin T C-Reactive Protein Total Protein Albumin LDL Cholesterol Direct Urine WBC (Auto) Crossmatch 05/20/22 05/20/22 05/20/22 04:40 04:40 07:08 WBC 13.3 H RBC 2.57 L Hgb 7.1 L Hct 22.2 L MCV MCH MCHC RDW 16.3 H Plt Count Lymph % (Auto) [place] % (Auto) Lymph # (Auto) [place] # (Auto) Seg Neutrophils % Seg Neuts % (Manual) Lymphocytes % (Manual) Seg Neutrophils # Seg Neutrophils # Man Lymphocytes # (Manual) PT INR ABG pH ABG pO2 ABG HCO3 ABG O2 Saturation ABG Base Excess ABG Hemoglobin Oxyhemoglobin Sodium 134 L Potassium Chloride Carbon Dioxide BUN Creatinine < 0.2 L Glucose 170 H POC Glucose 174 H Calcium 8.1 L Phosphorus Magnesium Total Creatine Kinase CK-MB (CK-2) Rel Index Troponin T C-Reactive Protein Total Protein Albumin LDL Cholesterol Direct Urine WBC (Auto) Crossmatch 05/20/22 05/21/22 05/21/22 15:08 05:13 22:07 WBC RBC Hgb Hct MCV MCH MCHC RDW Plt Count Lymph % (Auto) [place] % (Auto) Lymph # (Auto) [place] # (Auto) Seg Neutrophils % Seg Neuts % (Manual) Lymphocytes % (Manual) Seg Neutrophils # Seg Neutrophils # Man Lymphocytes # (Manual) PT INR ABG pH ABG pO2 ABG HCO3 ABG O2 Saturation ABG Base Excess ABG Hemoglobin Oxyhemoglobin Sodium Potassium Chloride Carbon Dioxide BUN Creatinine Glucose POC Glucose 114 H 149 H 113 H Calcium Phosphorus Magnesium Total Creatine Kinase CK-MB (CK-2) Rel Index Troponin T C-Reactive Protein Total Protein Albumin LDL Cholesterol Direct Urine WBC (Auto) Crossmatch 05/22/22 05/22/22 05/22/22 05:49 05:49 07:43 WBC RBC 3.05 L Hgb 8.6 L Hct 26.2 L MCV MCH MCHC RDW 16.8 H Plt Count Lymph % (Auto) [place] % (Auto) Lymph # (Auto) [place] # (Auto) Seg Neutrophils % Seg Neuts % (Manual) Lymphocytes % (Manual) Seg Neutrophils # Seg Neutrophils # Man Lymphocytes # (Manual) PT INR ABG pH ABG pO2 ABG HCO3 ABG O2 Saturation ABG Base Excess ABG Hemoglobin Oxyhemoglobin Sodium 131 L Potassium Chloride 93.3 L Carbon Dioxide 32 H BUN Creatinine < 0.2 L Glucose 148 H POC Glucose 145 H Calcium 8.2 L Phosphorus Magnesium Total Creatine Kinase CK-MB (CK-2) Rel Index Troponin T C-Reactive Protein Total Protein Albumin LDL Cholesterol Direct Urine WBC (Auto) Crossmatch 05/22/22 05/22/22 05/23/22 14:09 22:06 07:57 WBC RBC Hgb Hct MCV MCH MCHC RDW Plt Count Lymph % (Auto) [place] % (Auto) Lymph # (Auto) [place] # (Auto) Seg Neutrophils % Seg Neuts % (Manual) Lymphocytes % (Manual) Seg Neutrophils # Seg Neutrophils # Man Lymphocytes # (Manual) PT INR ABG pH ABG pO2 ABG HCO3 ABG O2 Saturation ABG Base Excess ABG Hemoglobin Oxyhemoglobin Sodium Potassium Chloride Carbon Dioxide BUN Creatinine Glucose POC Glucose 136 H 129 H 137 H Calcium Phosphorus Magnesium Total Creatine Kinase CK-MB (CK-2) Rel Index Troponin T C-Reactive Protein Total Protein Albumin LDL Cholesterol Direct Urine WBC (Auto) Crossmatch 05/23/22 05/23/22 05/24/22 14:13 21:29 04:22 WBC RBC 2.89 L Hgb 7.9 L Hct 24.9 L MCV MCH MCHC RDW 17.0 H Plt Count Lymph % (Auto) [place] % (Auto) Lymph # (Auto) [place] # (Auto) Seg Neutrophils % Seg Neuts % (Manual) Lymphocytes % (Manual) Seg Neutrophils # Seg Neutrophils # Man Lymphocytes # (Manual) PT INR ABG pH ABG pO2 ABG HCO3 ABG O2 Saturation ABG Base Excess ABG Hemoglobin Oxyhemoglobin Sodium Potassium Chloride Carbon Dioxide BUN Creatinine Glucose POC Glucose 135 H 132 H Calcium Phosphorus Magnesium Total Creatine Kinase CK-MB (CK-2) Rel Index Troponin T C-Reactive Protein Total Protein Albumin LDL Cholesterol Direct Urine WBC (Auto) Crossmatch 05/24/22 05/24/22 05/24/22 04:22 06:41 12:12 WBC RBC Hgb Hct MCV MCH MCHC RDW Plt Count Lymph % (Auto) [place] % (Auto) Lymph # (Auto) [place] # (Auto) Seg Neutrophils % Seg Neuts % (Manual) Lymphocytes % (Manual) Seg Neutrophils # Seg Neutrophils # Man Lymphocytes # (Manual) PT INR ABG pH ABG pO2 ABG HCO3 ABG O2 Saturation ABG Base Excess ABG Hemoglobin Oxyhemoglobin Sodium 133 L Potassium 5.1 H Chloride 93.7 L Carbon Dioxide 33 H BUN Creatinine < 0.2 L Glucose 144 H POC Glucose 140 H 130 H Calcium 8.3 L Phosphorus Magnesium Total Creatine Kinase CK-MB (CK-2) Rel Index Troponin T C-Reactive Protein Total Protein Albumin LDL Cholesterol Direct Urine WBC (Auto) Crossmatch 05/24/22 05/25/22 05/25/22 21:24 00:44 05:41 WBC RBC Hgb Hct MCV MCH MCHC RDW Plt Count Lymph % (Auto) [place] % (Auto) Lymph # (Auto) [place] # (Auto) Seg Neutrophils % Seg Neuts % (Manual) Lymphocytes % (Manual) Seg Neutrophils # Seg Neutrophils # Man Lymphocytes # (Manual) PT INR ABG pH ABG pO2 ABG HCO3 ABG O2 Saturation ABG Base Excess ABG Hemoglobin Oxyhemoglobin Sodium Potassium Chloride 94.8 L Carbon Dioxide 35 H BUN Creatinine < 0.2 L Glucose 146 H POC Glucose 141 H 142 H Calcium Phosphorus Magnesium Total Creatine Kinase CK-MB (CK-2) Rel Index Troponin T C-Reactive Protein Total Protein Albumin LDL Cholesterol Direct Urine WBC (Auto) Crossmatch 05/25/22 05/25/22 05/26/22 13:51 14:46 00:31 WBC RBC 2.87 L 2.82 L Hgb 7.8 L 7.6 L Hct 24.4 L 23.9 L MCV MCH 27 L 27 L MCHC RDW 17.1 H 17.4 H Plt Count Lymph % (Auto) 11.9 L [place] % (Auto) Lymph # (Auto) [place] # (Auto) Seg Neutrophils % 81.2 H Seg Neuts % (Manual) Lymphocytes % (Manual) Seg Neutrophils # 8.4 H Seg Neutrophils # Man Lymphocytes # (Manual) PT INR ABG pH ABG pO2 ABG HCO3 ABG O2 Saturation ABG Base Excess ABG Hemoglobin Oxyhemoglobin Sodium Potassium Chloride Carbon Dioxide BUN Creatinine Glucose POC Glucose 139 H Calcium Phosphorus Magnesium Total Creatine Kinase CK-MB (CK-2) Rel Index Troponin T C-Reactive Protein Total Protein Albumin LDL Cholesterol Direct Urine WBC (Auto) Crossmatch 05/26/22 05/26/22 05/26/22 00:31 05:02 20:28 WBC RBC Hgb Hct MCV MCH MCHC RDW Plt Count Lymph % (Auto) [place] % (Auto) Lymph # (Auto) [place] # (Auto) Seg Neutrophils % Seg Neuts % (Manual) Lymphocytes % (Manual) Seg Neutrophils # Seg Neutrophils # Man Lymphocytes # (Manual) PT INR ABG pH ABG pO2 ABG HCO3 ABG O2 Saturation ABG Base Excess ABG Hemoglobin Oxyhemoglobin Sodium 134 L Potassium Chloride 92.4 L Carbon Dioxide 37 H BUN Creatinine < 0.2 L Glucose 140 H POC Glucose 111 H 161 H Calcium 8.2 L Phosphorus Magnesium Total Creatine Kinase CK-MB (CK-2) Rel Index Troponin T C-Reactive Protein Total Protein Albumin LDL Cholesterol Direct Urine WBC (Auto) Crossmatch 05/27/22 05/27/22 05/27/22 05:56 16:32 23:17 WBC RBC Hgb Hct MCV MCH MCHC RDW Plt Count Lymph % (Auto) [place] % (Auto) Lymph # (Auto) [place] # (Auto) Seg Neutrophils % Seg Neuts % (Manual) Lymphocytes % (Manual) Seg Neutrophils # Seg Neutrophils # Man Lymphocytes # (Manual) PT INR ABG pH ABG pO2 ABG HCO3 ABG O2 Saturation ABG Base Excess ABG Hemoglobin Oxyhemoglobin Sodium Potassium Chloride Carbon Dioxide BUN Creatinine Glucose POC Glucose 135 H 138 H 124 H Calcium Phosphorus Magnesium Total Creatine Kinase CK-MB (CK-2) Rel Index Troponin T C-Reactive Protein Total Protein Albumin LDL Cholesterol Direct Urine WBC (Auto) Crossmatch 05/28/22 05/28/22 05/28/22 04:20 04:20 07:26 WBC RBC 2.82 L Hgb 7.6 L Hct 23.6 L MCV MCH 27 L MCHC RDW 17.3 H Plt Count Lymph % (Auto) [place] % (Auto) Lymph # (Auto) [place] # (Auto) Seg Neutrophils % Seg Neuts % (Manual) Lymphocytes % (Manual) Seg Neutrophils # Seg Neutrophils # Man Lymphocytes # (Manual) PT INR ABG pH ABG pO2 ABG HCO3 ABG O2 Saturation ABG Base Excess ABG Hemoglobin Oxyhemoglobin Sodium 135 L Potassium Chloride 94.4 L Carbon Dioxide 35 H BUN Creatinine < 0.2 L Glucose 130 H POC Glucose 124 H Calcium 8.0 L Phosphorus Magnesium Total Creatine Kinase CK-MB (CK-2) Rel Index Troponin T C-Reactive Protein Total Protein Albumin LDL Cholesterol Direct Urine WBC (Auto) Crossmatch 05/28/22 05/28/22 16:20 21:19 WBC RBC Hgb Hct MCV MCH MCHC RDW Plt Count Lymph % (Auto) [place] % (Auto) Lymph # (Auto) [place] # (Auto) Seg Neutrophils % Seg Neuts % (Manual) Lymphocytes % (Manual) Seg Neutrophils # Seg Neutrophils # Man Lymphocytes # (Manual) PT INR ABG pH ABG pO2 ABG HCO3 ABG O2 Saturation ABG Base Excess ABG Hemoglobin Oxyhemoglobin Sodium Potassium Chloride Carbon Dioxide BUN Creatinine Glucose POC Glucose 138 H 120 H Calcium Phosphorus Magnesium Total Creatine Kinase CK-MB (CK-2) Rel Index Troponin T C-Reactive Protein Total Protein Albumin LDL Cholesterol Direct Urine WBC (Auto) Crossmatch Allied health notes reviewed: nursing
[2022-05-29] MEDS: SENNOSIDES ORAL LIQD 8.8 MG/5 ML ORAL LIQD FEEDTUBE SCH (21:51)
[2022-05-30] MEDS: SODIUM CHLORIDE 0.9% IV SCH ×3 (01:00→17:31)
[2022-05-30] MEDS: CEFTAZIDIME IV SCH ×3 (01:00→17:31)
[2022-05-30] MEDS: AVIBACTAM IV SCH ×3 (01:00→17:31)
[2022-05-30] MEDS: INSULIN LISPRO 100 UNIT/ML SUB-Q SCH ×4 (06:26→23:16)
[2022-05-30] MEDS: FAMOTIDINE 20 MG TAB FEEDTUBE SCH ×3 (06:27→21:05)
[2022-05-30] MEDS: HEPARIN 5,000 UNIT/1 ML VIAL SUB-Q SCH ×3 (06:36→21:04)
[2022-05-30] MEDS ORDERED: EPINEPHrine RACEMIC 2.25% 0.5ML NEBU IH ONE (07:31)
[2022-05-30] MEDS: ALBUTEROL 2.5 MG/3 ML NEBU IH SCH ×2 (07:39→21:24)
[2022-05-30] MEDS: ACETYLCYSTEINE 20% 200 MG/1 ML *FOR INHALATION USE INHALATION SCH ×2 (07:40→21:24)
[2022-05-30] MEDS: DOCUSATE SODIUM 100 MG/10 ML ORAL LIQD FEEDTUBE SCH ×2 (09:14→21:05)
[2022-05-30] MEDS: METOPROLOL TARTRATE 25 MG TAB FEEDTUBE SCH ×2 (09:14→21:05)
[2022-05-30] MEDS: SCOPOLAMINE TRANSDERMAL PATCH 72 HR TD SCH (09:15)
[2022-05-30] MEDS: QUEtiapine 100 MG TAB FEEDTUBE SCH ×2 (09:15→21:05)
[2022-05-30] MEDS: BACLOFEN 10 MG TAB PO SCH ×3 (09:15→21:04)
[2022-05-30] MEDS: POLYETHYLENE GLYCOL 3350 17 GM POWDER FEEDTUBE SCH (09:16)
--- NOTE | 2022-05-30 10:28 | Progress Note ---
<ALEK SMITH - Last Filed: 05/30/22 18:23> Assessment and Plan Assessment and plan: This is a 57-year-old male with known history of ALS, recently hospitalized at [facility] admitted for acute hypoxemic respiratory failure 2/2 pneumonia Hospital Course to Date: 04/03: Intubated and Sedated on versed gtt, RASS-5. CT head/brain noted with no acute intracranial abnormality. Plan to initiated precededx gtt and wean off versed for a RASS goal of 0 to -2. CT chect also reviewed, findings are most consistent with acute bronchopneumonia. Continue empiric IV Abx, vent adjustment per CCM. ID consulted. Continue to F/U on cultures. Titrate pressor for MAP above 65. Medical records requested from [facility]. 04/04: Remains stable on the vent, easily arousable on precedex gtt, not following commands. Plan for SAT/SBT today. PRN analgesia for CPOT greater than 3. Fevers improved, cultures and procal pending. Continue current IV abx, ID also consulted. Remains on low dose pressors, titrate pressors for a MAP above 65. 04/05: Long discussion with family with use of translation phone with CCM regarding goals of care. Family to have meeting amongst themselves and informed care team of decisions. Fentanyl drip added for respiratory distress. Remains on Precedex drip. Antibiotics per ID. Given 2L NS bolus with levophed gtt 04/06: Family discussion with Dr. Grayson for goals of care. CXR shows possible mucus plug, continue CPT as FiO2 is being able to be weaned. Potassium repleted. Weaning fentnyl gtt. 04/07: Ultrasound guided thoracentesis today scheduled, inadequate amount of pleural effusion on so not completed. Patient was started on Levophed overnight which was weaned off this morning however had to be started twice a day. Remains on fentanyl and Precedex. Cardiology discontinued BB and ACEi in setting of hypotension. 04/08: COVID-19 PCR negative. Routine EEG ordered by cardiology which showed ST changes, cardiology aware. They will continue conservative treatment. Repeat troponins 0.030 which are less than admit of 0.048. Dr. Grayson had a long discu ssion with with the use of assembler caterpillar spider today at bedside and has not made a decision regarding goals of care. Possible consult to surgery for trach/PEG early next week. Continues to require Precedex and fentanyl drip for sedation. Carvedilol/lisinopril discontinued as patient is continuously on Levophed. 04/09: No acute events reported overnight, remains on fentanyl, Precedex and Levophed drips. Dr. Grayson and Dr. Pineda updated family at bedside extensively today. Consulted surgery for trach/PEG. COVID-19 PCR negative. 04/10: Patient noted to have desaturation episodes, FiO2 increased slightly to 35%. Will add Mucomyst. Remains on fentanyl and Precedex. Off of Levophed. Surgery consulted for trach/PEG. 04/11: FiO2 increased over night likely related to hypoxia, continues on fent gtt, weaning precedex gtt as he is also on Seroquel. Will d/w CCM re scheduled or prn oxycodone 04/12: Periods of hypoxia and tachycardia this am. Symptoms improved post deep suction and tracheal lavage, Repeat CXR noted with no significant change. Continue CPT and mucomyst. Plan for possible trach/PEG tomorrow by general surgery. 04/13: Remains stable on the vent. Patient is wake and tracking but does not follow simple commands. No report of hypoxia from overnight, continue CPT and mucomyst. Plan for track and PEG today by General Surgery. Plan for LTAC placement post procedure, case management to arrange. 04/14: VIRGILIO overnight, Trach and PEG postponed for today by general surgery. Plan for LTAC placement post procedure, case management to arrange. 04/15: S/p Trach and PEG. Up to 80% FiO2 this am, this am CXR noted suggesting possible mucus plug. D/W [facility] plan for bronch today. Continue CPT and mucomyst. Plan of care thoroughly discussed with patient's and son (who translated for ) at the bedside. Per , metal fabricator welder had already discussed the risks and benefits of the procedure yesterday. She verbalized understanding and agreed with procedure and current care plan, consent signed. Okay to use PEG-tube for meds this am, resume TF once okay by general Surgery. Case management to arrange LTAC placement. 04/16: s/p Bronchocopy by [facility]. FiO2 down to 60%, angela 10 this am. This am CXR with moderate improvement. Continue CPT and mucomyst, wean Fio2 as tolerated for SPO2 above 92%. Patient is tolerating TF, advance to goal as ordered. Possible LTAC placement, case management to arrange. 04/17: VIRGILIO overnight. remains stable on the vent, recent CXR and this am ABG n oted. Continue CPT and mucomyst, wean Fio2 as tolerated. 04/18: Remains stable on the vent, Fio2 down to 55% and peep of 8 this am. Continue to wean as tolerated, CPT, and mucomyst. Dsiposition- LTAC placement, case management to arrange. 04/19: No acute events overnight. Continue current management. 04/20: No acute events overnight, continue current management 04/21: Patient had chest ultrasound which showed trace pleural effusions, chest x-ray improved after the addition of Mucomyst yesterday. FiO2 55-65%. No acute events overnight. more interactive today. 04/22: Seroquel changed to BID, FiO2 was increased to 60%. RT increased FIO2 to 100 d/t desaturation into the 80s but was able to wean down. CCM increased PEEP and decreased FiO2. 04/23: CCM increase PEEP, no acute events reported overnight. 04/24: Spoke to RT about decreasing FiO2 as tolerated. No acute events reported overnight. Continue supportive management. 04/25: Weaning as tolerated. no acute events overnight. RT to attempt CPAP again today 04/26: VIRGILIO overnight. Patient failed PSV trial again this morning. Continue s upportive management and daily PST trial. 04/27: Patient failed PSV trial again this am due to episodes of apnea. Continue daily PSV trial as tolerated. Case management to arrange LTAC placement 04/28: Remains stable. Continue daily PSV trial as tolerated. Awaiting approval for LTAC 04/29: VIRGILIO overnight. Continue daily PSV trial. Awaiting approval for LTAC, case management to arrange. 04/30: Patient continue to fail PSV trial. Per case management patient was denied for LTAC, now possible SNF placement. Case managemen to arrange. Continue supportive measures and daily PSV trial as tolerated. 05/01: VIRGILIO overnight. Continue supportive measures and daily PSV trial as tolerated. Possible SNF placement. 05/02: Continue supportive measures and daily PSV trial as tolerated. Possible SNF placement, case management to arrange 05/03: no acute events overnight, CM arranging home vent setup. Family declined SNF. 05/04: RN/RT reports thin secretions, increase in FiO2 for decreased oxygen on ABG. No acute events overnight. 05/05: Family scheduled for teaching session today at 2pm. Increase in FiO2 overnight to 45%. Awaiting vent setup for home care for ventilation secondary to tracheostomy. 05/06: No acute events reported overnight, T-max 100.9. FiO2 45%. Awaiting discharge home with vent when teaching is completed 05/07: No acute events reported overnight, Awaiting discharge home with vent when teaching is completed 05/08: No acute events reported overnight, Awaiting discharge home with vent when teaching is completed 05/09: no acute events reported overnight. Ordered routine labs today. Family continuing with vent training. Anticipate discharge home this week possibly on Tuesday. 05/10: VIRGILIO overnight. Continue current supportive measures and family training at the bedside. Plan for discharge home tomorrow. 05/11: Discharge home today. supplier specialist at 12pm 05/12: Discharge cancelled yesterday. Patient desated on home vent at max setting. Home vent is not sufficient to support patient's ventilation need. D/w [facility], Dr. Valdivia, who recommend SNF placement at this time. Patient's family notified at the bedside. All questions and concerns were address at this time. Further discussion on alternative placement to be determine and discussed with patient's family and case management today. The respiratory therapist from [facility] is schedule to come at 1400 today for further assessment. 05/13: Tolerating home vent this amd. Recent CXR reviewed with no significant change. Patient's home vent settings were adjusted by [facility]. tarpipe respiratory therapist to come again today to make further adjusted to home vent. Plan is to optimize patient's on home vent for possible discharge home. 05/14: Patient continue to have periods of desaturations on home vent. Home vent setting adjusted and it was determined that patient require 12L to 15L of oxygen to maintain SPO2 goal above 88%. Will continue to optimized patient on home vent for possible discharge home on Tuesday. 05/15: Febrile overnight with hypotension and increased O2 requirement. s/p 500cc IVF bolus, and pancultured overnight. This am CXR reviewed, IV Abx- Cefepine initiated for now, pending cultures. 05/16: With persistent fever this morning. Hypotensive again overnight, additional s/p 500cc IVF bolus given. Continue current IV abx, cultures pending. Down to 8L flow on home today. Repeat CXR in the am. Guarded discharge for tomorrow. D/w CCM, patient need to be afebrile for at least 24hrs prior to discharge. Plan discussed with patient's and daughter at the bedside. 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; WOCN consult placed 05-18 ID and gen surg consult 05/19: s/p sacral wound debridement with Dr. Jerome with wound vac and mesh placement. Per Dr. Jerome patient will need to either stay in the hospital 1 week to be taken back to the OR for removal of mesh on wound or may be discharged but will have to visit the wound clinic in 2 weeks. We will alert case packer and sealer. No acute events overnight. 05/20: Remains with leukocytosis, wound VAC in place. Discharge requested to be postponed by surgery. Remains on meropenem and vancomycin. No acute events reported overnight. 05/21: IV abx deescalated by ID, no acute events overnight. Continue current management. 05/22: No acute events reported overnight. Hyponatremia noted. Decreased free water flush. We will repeat labs in 48 hours. 05/23: no acute events overnight. 05/24/22 -patient seen today at bedside. Patients eyes open with no purposeful response. i reviewed lab, mar, and v/s. potassium 5.1-kayexalate given times 1- will repeat BMP in am. Pt remain on trach to vent.V/s stable. 05/25/22- Patient has significant history of ALS and as a result has remained on mechanical ventilation. Due to underlying neurological condition patient will require HFCWO vest. The patient has had trials of CoughAssist therapy with flutter wave CPT multiple suctioning while in the hospital but all of these have unfortunately failed to resolve his current condition and will benefit from the HFCWO vest. - patient asleep at the time of assessment. On trach to vent. The plan is to discharge patient on home vent. Reviewed specialist recommendations. We will follow-up with plan of care. Elevated potassium has resolved. Hyponatremia resolved. 05/26: VIRGILIO overnight. Remains afebrile, stable on home vent, VSS. Continue current IV abx, now on Avycaz per ID. 05/27: Remains stable and afebrile. ID recommendations noted, okay to discharge patient home with IV Abx, Avycaz, [id number]. PICC line ordered. Case management to arrange for IV abx at home. Possible discharge home on Tuesday. 05/28 Back on hospital vent overnight due to increase WOB and hypoxia. Patient is stable on low vent setting this am. Repeat CXR pending. D/W CCM plan to switch and optimize patient on his home vent. Continue CPT, mucomyst, and good pulmonary hygiene. PICC inserted, continue current IV Abx per ID. Possible discharge home on Tuesday. 05/29: Back on home vent, stable on 10L flow this am. Repeat CXR noted with no significant change. Continue current supportive care. Case management note and ID recommendations noted. Home infusion IV Abx not covered by insurance, alba ealed in process. Case management to F/U. Guarded discharge for Tuesday. 05/30: VIRGILIO overnight. Remains stable on home vent. Continue current supportive care. Guarded discharge, awaiting appeal response from insurance for IV abx at home. Assessment and Plan #Acute Hypoxemic Respiratory Failure 2/ #Acute Bronchopneumonia - Intubated in the ED on 04/02 for hypoxemia and airway protection - 6/8 s/p Trach and PEG - 6/9 s/p Bronchoscopy by CCM - Back on home vent, repeat CXR unchanged - vent Setting:TV:500, peep 12, rate 14, @10L flow - CCM consulted, appreciate recommendations - Continue CPT, mucomyst, and good pulmonary hygiene - VAP bundle addressed - Aspiration precaution HOB above 30 - PRN ABG and CXR per CCM - Continue SPO2 monitoring for SPO2 goal above 92% #Sepsis #Acute Bronchopneumonia/HCAP #New Stage 4 Sacral Pressure Ulcer - CXR shows moderate to large layering effusion on the right, see report for full detail - CT chest also reviewed, findings are most consistent with acute bronchopneumonia. See report for full detail - Tracheal aspirate with Pseudomonas aeruginosa, Enterobacter aerogenes - 04/02 blood culture with bacillus species, 04/05 blood culture NGTD, repeat Bcultures with NGTD - Completed initiatial IV abx course- S/p merem, Levaquin, Cefepine, and Vanco - persistent fevers hypotension, ID reconsulted - Stage 4 caral pressure ulcer noted, General Surgery consulted - 05/19 s/p wound debridement, mesh placement to wound bed and wound vac placement - wound culture with Vineet CRE. Now on Avycaz per ID. - Per ID. okay to discharge with IV Abx, Avycaz 2.5 g every 8 hours X10 days until 06/04/2022. PICC line placed - F/U on cultures - Daily CBC monitor - Wound care also consulted #Suspect ischemic coronary artery disease #h/o cardiomyopathy - Low BP probably due to hypovolemia vs sedation vs infectious process - s/p Levophed gtt - Elevated troponin possibly a type II troponin leak - Cardiology consulted, appreciated recommendations - Echocardiogram shows ejection fraction of 40 to 45%, mild global hypokinesis of left ventricle - Continue BB, reduced to BID due to low BP - Continue blood pressure monitor per protocol - Maintain MAP above 65 - On heparin SubQ #H/o Amyotrophic Lateral Sclerosis #Acute Metabolic Encephalopathy-resolved #Nonverbal at Baseline - Presented with AMS, per family patient is nonverbal at baseline but responsive - CT head/Brain with no acute intracranial process - Off sedation. Awake and calm - Continue Seroquel per CCM - Avoid benzodiazepine to reduce the possibility of delirium - PRN analgesia for CPOT greater than 3 - Maintenance of sleep-wake cycle #Thrombocytopenia-resolved - Continue to trend plt - On heparin subQ - Monitor for s/s of any active bleeding #Hypernatremia-resolved - Monitor and replace electrolytes as needed - Continue to trend BMP #Protein Caloric Malnutrition - 04/15 s/p EPG-Tube placement - Continue enteral nutrition - Nutrition consulted #GI/DVT Prophylaxis - PPI- Pepcid - Heparin SubQ - SCDs to bilateral lower extremities while in bed #Advance Care Planning - Disease education data, care plan, diagnoses, and prognosis were discussed patient's , Carly Lopez, and patient daughter, Kaylee Warren, who translated for #[phone]. They reported that patient was following at [facility] for his ALS and during recent hospitalization at [facility] they were told nothing else can be offered to patient at this time and patient was discharge home with home hospice and PO morphine. First hospice visit was on , however, patient became unresponsive yesterday and they brought in to the hospital. - Goal of care and code status were also addressed at that time. Family wants to wait for a couple days to see how patient respond to current treatment before making a decision. All questions and concerns were addressed at this time. Patient family acknowledged understanding and agreement with care plan. - Patient remains a FULL CODE status -04/05: Discussion at bedside with interpreting service with Dr. Valdivia and family state they would discuss next steps amongst themselves and let healthcare team know of decisions -04/06: extensive discussion with family ( and son) with Dr. Grayson regarding goals of care -04/08: Extensive discussion with with the use of assembler caterpillar spider line regarding goals of care; no decision made. Possible consult to surgery for trach/PEG early next week. -04/09: Discussion with and her sister with Dr. Grayson and then with Dr. Pineda-> Consulted surgery for trach/peg -04/30 Insurance Denied LTAC, plan for possible SNF placemenet now. Case management to arrange -05/12: Discharge cancelled yesterday. Patient desated on home vent at max setting. Home vent is not sufficient to support patient's ventilation need. -05/13: Adjustement made to home vent. Plan to optimize patient for possible discharge home. -Possible Discharge on Thursday 05/31- Guarded The high probability of a clinically significant, sudden or life threatening deterioration of the [multiple] system(s) required my full and direct attention, intervention and personal management. The aggregate critical care time was [60] minutes. This time is in addition to time spent performing reported procedures but includes the following: [x] Data Review and interpretation [x] Patient assessment and monitoring of vital signs [x] Documentation [x] Medication orders and management Disposition Plan: ICU Total Time Spent with Patient (Minutes): 60 History Interval history: Patient seen and examined at the bedside. Stable on home vent this am, following simple commands. Afebrile, VSS. Sacral wound vac noted with no s/s of any complications. Hospitalist Physical - Physical exam Narrative exam: General appearance: Present: no acute distress, cachectic, other (Trach and on the vent. Awake and tracking, following simple commands) - EENT Eyes: Present: PERRL - Neck Neck: Present: normal ROM - Respiratory Respiratory effort: normal Respiratory: bilateral: rhonchi - Cardiovascular Rhythm: regular Heart Sounds: Present: S1 & S2 - Extremities Extremities: no ischemia, pulses intact, pulses symmetrical Peripheral Pulses: within normal limits - Abdominal General gastrointestinal: soft, non-distended, normal bowel sounds - Integumentary Integumentary: Present: warm, dry - Psychiatric Psychiatric: other (Trach and on the vent. Awake and tracking, following simple commands) - Neurologic Neurologic: other (Trach and on the vent. Awake and tracking, following simple commands) - Allied Health Allied health notes reviewed: nursing, case management - Constitutional Vitals: Temp Pulse Resp BP Pulse Ox 99.1 F 114 H 18 96/60 95 05/30/22 07:39 05/30/22 10:12 05/30/22 10:00 05/30/22 10:12 05/30/22 10:12 HEART Score - HEART Score Troponin: Troponin T 0.031 ng/mL (0.00-0.029) H 04/08/22 17:47 Results - Labs CBC & Chem 7: 05/28/22 04:20 05/28/22 04:20 Labs: Laboratory Last Values WBC 9.7 K/mm3 (4.5-11.0) 05/28/22 04:20 RBC 2.82 M/mm3 (3.65-5.03) L 05/28/22 04:20 Hgb 7.6 gm/dl (11.8-15.2) L 05/28/22 04:20 Hct 23.6 % (35.5-45.6) L 05/28/22 04:20 MCV 84 fl (84-94) 05/28/22 04:20 MCH 27 pg (28-32) L 05/28/22 04:20 MCHC 32 % (32-34) 05/28/22 04:20 RDW 17.3 % (13.2-15.2) H 05/28/22 04:20 Plt Count 347 K/mm3 (140-440) 05/28/22 04:20 Lymph % (Auto) 11.9 % (13.4-35.0) L 05/25/22 13:51 [place] % (Auto) 5.6 % (0.0-7.3) 05/25/22 13:51 Eos % (Auto) 0.9 % (0.0-4.3) 05/25/22 13:51 Baso % (Auto) 0.4 % (0.0-1.8) 05/25/22 13:51 Lymph # (Auto) 1.2 K/mm3 (1.2-5.4) 05/25/22 13:51 [place] # (Auto) 0.6 K/mm3 (0.0-0.8) 05/25/22 13:51 Eos # (Auto) 0.1 K/mm3 (0.0-0.4) 05/25/22 13:51 Baso # (Auto) 0.0 K/mm3 (0.0-0.1) 05/25/22 13:51 Add Manual Diff Complete 05/17/22 03:41 Total Counted 100 05/17/22 03:41 Seg Neutrophils % 81.2 % (40.0-70.0) H 05/25/22 13:51 Seg Neuts % (Manual) 96.0 % (40.0-70.0) H 05/17/22 03:41 Band Neutrophils % 0 % 05/17/22 03:41 Lymphocytes % (Manual) 1.0 % (13.4-35.0) L 05/17/22 03:41 Reactive Lymphs % (Man) 0 % 05/17/22 03:41 Monocytes % (Manual) 3.0 % (0.0-7.3) 05/17/22 03:41 Eosinophils % (Manual) 0 % (0.0-4.3) 05/17/22 03:41 Basophils % (Manual) 0 % (0.0-1.8) 05/17/22 03:41 Metamyelocytes % 0 % 05/17/22 03:41 Myelocytes % 0 % 05/17/22 03:41 Promyelocytes % 0 % 05/17/22 03:41 Blast Cells % 0 % 05/17/22 03:41 Nucleated RBC % Not Reportable 05/17/22 03:41 Seg Neutrophils # 8.4 K/mm3 (1.8-7.7) H 05/25/22 13:51 Seg Neutrophils # Man 15.6 K/mm3 (1.8-7.7) H 05/17/22 03:41 Band Neutrophils # 0.0 K/mm3 05/17/22 03:41 Lymphocytes # (Manual) 0.2 K/mm3 (1.2-5.4) L 05/17/22 03:41 Abs React Lymphs (Man) 0.0 K/mm3 05/17/22 03:41 Monocytes # (Manual) 0.5 K/mm3 (0.0-0.8) 05/17/22 03:41 Eosinophils # (Manual) 0.0 K/mm3 (0.0-0.4) 05/17/22 03:41 Basophils # (Manual) 0.0 K/mm3 (0.0-0.1) 05/17/22 03:41 Metamyelocytes # 0.0 K/mm3 05/17/22 03:41 Myelocytes # 0.0 K/mm3 05/17/22 03:41 Promyelocytes # 0.0 K/mm3 05/17/22 03:41 Blast Cells # 0.0 K/mm3 05/17/22 03:41 WBC Morphology Not Reportable 05/17/22 03:41 Hypersegmented Neuts Not Reportable 05/17/22 03:41 Hyposegmented Neuts Not Reportable 05/17/22 03:41 Hypogranular Neuts Not Reportable 05/17/22 03:41 Smudge Cells Not Reportable 05/17/22 03:41 Toxic Granulation Not Reportable 05/17/22 03:41 Toxic Vacuolation Not Reportable 05/17/22 03:41 Dohle Bodies Not Reportable 05/17/22 03:41 Pelger-Huet Anomaly Not Reportable 05/17/22 03:41 Terry Rods Not Reportable 05/17/22 03:41 Platelet Estimate Consistent w auto 05/17/22 03:41 Clumped Platelets Not Reportable 05/17/22 03:41 Plt Clumps, EDTA Not Reportable 05/17/22 03:41 Large Platelets Not Reportable 05/17/22 03:41 Giant Platelets Not Reportable 05/17/22 03:41 Platelet Satelliting Not Reportable 05/17/22 03:41 Plt Morphology Comment Not Reportable 05/17/22 03:41 RBC Morphology Not Reportable 05/17/22 03:41 Dimorphic RBCs Not Reportable 05/17/22 03:41 Polychromasia Not Reportable 05/17/22 03:41 Hypochromasia Not Reportable 05/17/22 03:41 Poikilocytosis Not Reportable 05/17/22 03:41 Anisocytosis 1+ 05/17/22 03:41 Microcytosis Not Reportable 05/17/22 03:41 Macrocytosis Not Reportable 05/17/22 03:41 Spherocytes Not Reportable 05/17/22 03:41 Pappenheimer Bodies Not Reportable 05/17/22 03:41 Sickle Cells Not Reportable 05/17/22 03:41 Target Cells Not Reportable 05/17/22 03:41 Tear Drop Cells Not Reportable 05/17/22 03:41 Ovalocytes Not Reportable 05/17/22 03:41 Helmet Cells Not Reportable 05/17/22 03:41 [place] Bodies Not Reportable 05/17/22 03:41 [place] Rings Not Reportable 05/17/22 03:41 [place] Cells Not Reportable 05/17/22 03:41 Bite Cells Not Reportable 05/17/22 03:41 Crenated Cell Not Reportable 05/17/22 03:41 Elliptocytes Not Reportable 05/17/22 03:41 Acanthocytes (Spur) Not Reportable 05/17/22 03:41 Rouleaux Not Reportable 05/17/22 03:41 Hemoglobin C Crystals Not Reportable 05/17/22 03:41 Schistocytes Not Reportable 05/17/22 03:41 Malaria parasites Not Reportable 05/17/22 03:41 [place] Bodies Not Reportable 05/17/22 03:41 Hem Pathologist Commnt No 05/17/22 03:41 PT 13.6 Sec. (12.2-14.9) 04/13/22 04:30 INR 0.94 (0.87-1.13) 04/13/22 04:30 APTT 35.7 Sec. (24.2-36.6) 04/07/22 03:51 ABG pH 7.385 pH Units (7.350-7.450) 05/19/22 06:10 ABG pCO2 51.9 mm Hg 05/19/22 06:10 ABG pO2 70.5 mm Hg (80.0-90.0) L 05/19/22 06:10 ABG HCO3 30.3 mmol/L (20.0-26.0) H 05/19/22 06:10 ABG O2 Saturation 97.6 % (95.0-99.0) 05/19/22 06:10 ABG O2 Content 8.1 (0.0-44) 05/19/22 06:10 ABG Base Excess 4.9 mmol/L (-2.0-3.0) H 05/19/22 06:10 ABG Hemoglobin 5.9 gm/dl (14.0-18.0) L 05/19/22 06:10 ABG Carboxyhemoglobin 1.5 % (0.0-5.0) 05/19/22 06:10 ABG Methemoglobin 0.4 % (0.0-1.5) 05/19/22 06:10 Oxyhemoglobin 95.8 % (95.0-99.0) 05/19/22 06:10 FiO2 55 % 05/19/22 06:10 Sodium 135 mmol/L (137-145) L 05/28/22 04:20 Potassium 4.5 mmol/L (3.6-5.0) 05/28/22 04:20 Chloride 94.4 mmol/L (98-107) L 05/28/22 04:20 Carbon Dioxide 35 mmol/L (22-30) H 05/28/22 04:20 Anion Gap 10 mmol/L 05/28/22 04:20 BUN 17 mg/dL (9-20) 05/28/22 04:20 Creatinine < 0.2 mg/dL (0.8-1.3) L 05/28/22 04:20 Estimated GFR > 60 ml/min 05/28/22 04:20 BUN/Creatinine Ratio 85 % 05/28/22 04:20 Glucose 130 mg/dL (75-100) H 05/28/22 04:20 POC Glucose 128 mg/dL (70-105) H 05/30/22 05:54 Lactic Acid 1.90 mmol/L (0.7-2.0) 04/02/22 19:39 Calcium 8.0 mg/dL (8.4-10.2) L 05/28/22 04:20 Phosphorus 2.70 mg/dL (2.5-4.5) 05/22/22 05:49 Magnesium 1.80 mg/dL (1.7-2.3) 05/22/22 05:49 Total Bilirubin 0.80 mg/dL (0.1-1.2) 04/02/22 19:39 AST 15 units/L (5-40) 04/02/22 19:39 ALT 9 units/L (7-56) 04/02/22 19:39 Alkaline Phosphatase 43 units/L (35-129) 04/02/22 19:39 Total Creatine Kinase 46 units/L (55-170) L 04/08/22 17:47 CK-MB (CK-2) 2.6 ng/mL (0.0-4.0) 04/08/22 17:47 CK-MB (CK-2) Rel Index 5.6 (0-4) H 04/08/22 17:47 Troponin T 0.031 ng/mL (0.00-0.029) H 04/08/22 17:47 C-Reactive Protein 31.20 mg/dL (0.00-1.30) H 05/17/22 03:41 Total Protein 4.6 g/dL (6.3-8.2) L 04/02/22 19:39 Albumin 2.7 g/dL (3.9-5) L 04/02/22 19:39 Albumin/Globulin Ratio 1.4 % 04/02/22 19:39 Triglycerides 80 mg/dL (2-149) 04/02/22 19:39 Cholesterol 94 mg/dL (50-199) 04/02/22 19:39 LDL Cholesterol Direct 27 mg/dL (50-130) L 04/02/22 19:39 HDL Cholesterol 47 mg/dL (40-59) 04/02/22 19:39 Cholesterol/HDL Ratio 2.00 % 04/02/22 19:39 Procalcitonin 1.30 ng/mL (<0.15) 05/17/22 03:41 Urine Color Aracely (Yellow) 05/18/22 03:50 Urine Turbidity Clear (Clear) 05/18/22 03:50 Urine pH 5.0 (5.0-7.0) 05/18/22 03:50 Ur Specific [place] 1.030 (1.003-1.030) 05/18/22 03:50 Urine Protein 30 mg/dl mg/dL (Negative) 05/18/22 03:50 Urine Glucose (UA) Neg mg/dL (Negative) 05/18/22 03:50 Urine Ketones Tr mg/dL (Negative) 05/18/22 03:50 Urine Blood Neg (Negative) 05/18/22 03:50 Urine Nitrite Neg (Negative) 05/18/22 03:50 Urine Bilirubin Neg (Negative) 05/18/22 03:50 Urine Urobilinogen < 2.0 mg/dL (<2.0) 05/18/22 03:50 Ur Leukocyte Esterase Neg (Negative) 05/18/22 03:50 Urine WBC (Auto) 1.0 /HPF (0.0-6.0) 05/18/22 03:50 Urine RBC (Auto) 1.0 /HPF (0.0-6.0) 05/18/22 03:50 U Epithel Cells (Auto) 2.0 /HPF (0-13.0) 05/18/22 03:50 Urine Bacteria (Auto) 1+ /HPF (Negative) 05/18/22 03:50 Hyaline Casts 1 /LPF 04/05/22 17:45 Urine Mucus Few /HPF 05/18/22 03:50 Nasal Screen MRSA (PCR) Negative (Negative) 04/05/22 12:37 Vancomycin Trough 16.2 ug/mL (5.0-20.0) 05/20/22 20:41 Coronavirus (PCR) Negative (Negative) 04/07/22 14:52 Blood Type O POSITIVE 05/18/22 13:56 Antibody Screen Negative 05/18/22 13:56 Crossmatch See Detail 05/18/22 13:56 Perez/IV: Voiding Method Condom Catheter Active Medications - Current Medications Current Medications: Generic Name Dose Route Start Last Admin Trade Name Freq PRN Reason Stop Dose Admin Acetaminophen 650 mg 04/02/22 23:53 05/29/22 10:07 Acetaminophen 325 Mg Tab PO 650 mg Q6H PRN Administration Pain MILD(1-3)/Fever >100.5/FAITH Acetylcysteine 200 mg 05/04/22 20:00 05/30/22 07:40 Acetylcysteine 20% 200 Mg/1 Ml *For Inhalation Use* INHALATION Not Given Q12HRT SEGUNDO Albuterol 2.5 mg 05/05/22 20:00 05/30/22 07:39 Albuterol 2.5 Mg/3 Ml Nebu IH 2.5 mg Q12HRT SEGUNDO Administration Lipase/Protease/Amylase 1 each 05/20/22 15:35 Lipase 10,500/Protease 25,000/Amylase 43,750 (Units) Dr [place] FEEDTUBE PRN PRN For Clogged Feeding Tube Baclofen 10 mg 05/19/22 20:00 05/30/22 09:15 Baclofen 10 Mg Tab PO 10 mg TID SEGUNDO Administration Bisacodyl 10 mg 04/07/22 09:44 04/12/22 10:06 Bisacodyl 10 Mg Rect Supp MA 10 mg QDAY PRN Administration Constipation Docusate Sodium 100 mg 05/18/22 22:00 05/30/22 09:14 Docusate Sodium 100 Mg/10 Ml Oral Liqd FEEDTUBE 100 mg BID SEGUNDO Administration Famotidine 20 mg 04/06/22 10:00 05/30/22 09:15 Famotidine 20 Mg Tab FEEDTUBE 20 mg BID SEGUNDO Administration Fentanyl 50 mcg 04/04/22 15:56 05/19/22 21:24 Fentanyl 100 Mcg/2 Ml Inj IV 50 mcg Q2HR PRN Administration For CPOT of greater than 3 Heparin Sodium (Porcine) 5,000 unit 04/03/22 06:00 05/30/22 06:36 Heparin 5,000 Unit/1 Ml Vial SUB-Q 5,000 unit Q8HR SEGUNDO Administration CEFTAZIDIME/AVIBACTAM 2.5 gm/ 50 mls @ 25 mls/hr 05/26/22 09:00 05/30/22 01:00 Sodium Chloride IV 06/05/22 02:59 25 mls/hr Q8H SEGUNDO Administration Insulin Human Lispro 0 unit 05/05/22 06:00 05/30/22 06:28 Insulin Lispro 100 Unit/Ml SUB-Q Not Given Q8HR SEGUNDO Protocol Magnesium Hydroxide 30 ml 04/02/22 23:53 Magnesium Hydroxide (Mom) Oral Liqd Udc PO Q4H PRN Constipation Metoprolol Tartrate 12.5 mg 05/29/22 22:00 05/30/22 09:14 Metoprolol Tartrate 25 Mg Tab FEEDTUBE 12.5 mg BID SEGUNDO Administration Ondansetron HCl 4 mg 04/02/22 23:53 Ondansetron 4 Mg/2 Ml Inj IV Q8H PRN Nausea And Vomiting Polyethylene Glycol 17 gm 05/18/22 15:00 05/30/22 09:16 Polyethylene Glycol 3350 17 Gm Powder FEEDTUBE 17 gm QDAY SEGUNDO Administration Quetiapine Fumarate 50 mg 05/13/22 11:00 05/30/22 09:15 Quetiapine 100 Mg Tab FEEDTUBE 50 mg BID SEGUNDO Administration Scopolamine 1 each 05/12/22 09:00 05/30/22 09:15 Scopolamine Transdermal Patch 72 Hr TD 1 each Q3D SEGUNDO Administration Senna 8.8 mg 05/18/22 22:00 05/29/22 21:51 Sennosides Oral Liqd 8.8 Mg/5 Ml Oral Liqd FEEDTUBE 8.8 mg QHS SEGUNDO Administration Simple Syrup 15 ml 05/20/22 15:35 Simple Syrup 15 Ml FEEDTUBE PRN PRN Hypoglycemia Simple Syrup 30 ml 05/20/22 15:35 Simple Syrup 15 Ml FEEDTUBE PRN PRN Hypoglycemia Sodium Bicarbonate 325 mg 05/20/22 15:35 Sodium Bicarbonate 325 Mg Tab FEEDTUBE PRN PRN For Clogged Feeding Tube Sodium Chloride 10 ml 04/03/22 10:00 05/30/22 09:16 Sodium Chloride 0.9% 10 Ml Flush Syringe IV 10 ml BID SEGUNDO Administration Sodium Chloride 10 ml 04/02/22 23:53 05/16/22 05:10 Sodium Chloride 0.9% 10 Ml Flush Syringe IV 10 ml PRN PRN Administration LINE FLUSH Nutrition/Malnutrition Assess - Dietary Evaluation Nutrition/Malnutrition Findings: Nutrition Notes Start: 04/04/22 13:13 Freq: Status: Active Protocol: Document 05/27/22 09:47 COLLEEN (Rec: 05/27/22 10:19 COLLEEN [id number]) Nutrition Notes Initial or Follow up Reassessment Current Diagnosis Coronary Artery Disease, Decubitus(Pressure Ulcer), Sepsis,Respiratory Failure Other Pertinent Diagnosis HCAP, ALS, Broncopneumonia, NSTEMI, Cardiomyopathy, ... Current Diet TF-Osmolite 1.5 Inderjit @ 55 ml/hr (since D 05/19). Labs/Tests 05/27: Na 134, Cl 92.4, CO2 37 , Crea <0.2, Glu 140, Ca 8.2. Pertinent Medications 05/27: Nutritionaslly unremerkable. Height 5 ft 4.8 in Weight 54.3 kg [place] Body Weight (kg) 61.27 BMI 20.0 Weight change and time frame 5.7 Kg body weight gain reported in 1 week. Weight Status Appropriate Subjective/Other Information RD consult for routine F/U on TF tolerance/continuation. TF continues as prescribed, and well tolerated with no residuals, according to RN notes. Pt continues on Mechanical Ventilation, O2 saturation @ 99%, according to Physical Assessment History notes. Procedure on 05/24: WoundVac changed, wound cleaned, and skin substitute in place, well tolerated, according to Operative Report. Plans to discharge on 05/27, on [facility], Pt tolerating well, according to [facility] notes. Percent of energy/protein needs met: Prescribed TF-Osmolite 1.5 Inderjit @ 55 ml/hr provides for energy/protein needs (1,980 Kcal/83 g) during LOS, 102% Kcal; 100% AA. Burn Absent Trauma Absent GI Symptoms Constipation Difficulty In Swallowing,Chewing Food Allergy No Skin Integrity/Comment Stage IV Sacral Ulcer. Current % PO Other Minimum of two criteria No Fluid Accumulation N/A Reduced Diesel Lube Tech Strength N/A (non-severe) Protein-Calorie Malnutrition N\A #1 Nutrition Diagnosis Inadequate oral intake Diagnosis Progress(for reassessment Continues documentation) Is patient on ventilator? Yes Is Patient Ambulatory and/or Out of Bed No REE-([facility]-confined to bed) 1566.648 Kcal/Kg value to use for calculation 36 Approximate Energy Requirements Using 1955 kcal/Kg Calculation Used for Recommendations Kcal/kg Additional Notes Protein: 1.5-2 g/Kg ABW; 73-98 g/day. Fluids: 1 ml/Kcal, or as per MD. Nutrition Intervention Nutrition Support: Continue TF-Osmolite 1.5 Inderjit @ 55 ml/hr. Flush: 150 ml water Q 4 hr, or as per MD. Kcal 1,980 Protein (gm) 83 Carbohydrates (gm) 269 Fat (gm) 65 Fluid (mL) 1,006 Fiber (gm) 0 % RDI: 102% Kcal; 100% AA. Goal #1 Provide at least 75% of energy /protein needs through Enteral Feeding during LOS. Follow-Up By: 06/10/22 Additional Comments Continue monitoring TF tolerance and BM. <DIXIE BROWN E - Last Filed: 05/31/22 07:05> Assessment and Plan Assessment and plan: I saw and evaluated the patient. I agree with the findings and the plan of care as documented in the Nurse Practitioner's~note, with the following corrections and additions. Hospitalist Physical - Constitutional Vitals: Temp Pulse Resp BP Pulse Ox 98.9 F 102 H 17 104/61 99 05/31/22 04:00 05/31/22 06:00 05/31/22 06:00 05/31/22 06:00 05/31/22 06:00 HEART Score - HEART Score Troponin: Troponin T 0.031 ng/mL (0.00-0.029) H 04/08/22 17:47 Results - Labs CBC & Chem 7: 05/31/22 04:55 05/31/22 04:55 Labs: Laboratory Last Values WBC 6.0 K/mm3 (4.5-11.0) 05/31/22 04:55 RBC 2.58 M/mm3 (3.65-5.03) L 05/31/22 04:55 Hgb 6.9 gm/dl (11.8-15.2) L 05/31/22 04:55 Hct 21.4 % (35.5-45.6) L 05/31/22 04:55 MCV 83 fl (84-94) L 05/31/22 04:55 MCH 27 pg (28-32) L 05/31/22 04:55 MCHC 32 % (32-34) 05/31/22 04:55 RDW 17.6 % (13.2-15.2) H 05/31/22 04:55 Plt Count 361 K/mm3 (140-440) 05/31/22 04:55 Lymph % (Auto) 11.9 % (13.4-35.0) L 05/25/22 13:51 [place] % (Auto) 5.6 % (0.0-7.3) 05/25/22 13:51 Eos % (Auto) 0.9 % (0.0-4.3) 05/25/22 13:51 Baso % (Auto) 0.4 % (0.0-1.8) 05/25/22 13:51 Lymph # (Auto) 1.2 K/mm3 (1.2-5.4) 05/25/22 13:51 [place] # (Auto) 0.6 K/mm3 (0.0-0.8) 05/25/22 13:51 Eos # (Auto) 0.1 K/mm3 (0.0-0.4) 05/25/22 13:51 Baso # (Auto) 0.0 K/mm3 (0.0-0.1) 05/25/22 13:51 Add Manual Diff Complete 05/17/22 03:41 Total Counted 100 05/17/22 03:41 Seg Neutrophils % 81.2 % (40.0-70.0) H 05/25/22 13:51 Seg Neuts % (Manual) 96.0 % (40.0-70.0) H 05/17/22 03:41 Band Neutrophils % 0 % 05/17/22 03:41 Lymphocytes % (Manual) 1.0 % (13.4-35.0) L 05/17/22 03:41 Reactive Lymphs % (Man) 0 % 05/17/22 03:41 Monocytes % (Manual) 3.0 % (0.0-7.3) 05/17/22 03:41 Eosinophils % (Manual) 0 % (0.0-4.3) 05/17/22 03:41 Basophils % (Manual) 0 % (0.0-1.8) 05/17/22 03:41 Metamyelocytes % 0 % 05/17/22 03:41 Myelocytes % 0 % 05/17/22 03:41 Promyelocytes % 0 % 05/17/22 03:41 Blast Cells % 0 % 05/17/22 03:41 Nucleated RBC % Not Reportable 05/17/22 03:41 Seg Neutrophils # 8.4 K/mm3 (1.8-7.7) H 05/25/22 13:51 Seg Neutrophils # Man 15.6 K/mm3 (1.8-7.7) H 05/17/22 03:41 Band Neutrophils # 0.0 K/mm3 05/17/22 03:41 Lymphocytes # (Manual) 0.2 K/mm3 (1.2-5.4) L 05/17/22 03:41 Abs React Lymphs (Man) 0.0 K/mm3 05/17/22 03:41 Monocytes # (Manual) 0.5 K/mm3 (0.0-0.8) 05/17/22 03:41 Eosinophils # (Manual) 0.0 K/mm3 (0.0-0.4) 05/17/22 03:41 Basophils # (Manual) 0.0 K/mm3 (0.0-0.1) 05/17/22 03:41 Metamyelocytes # 0.0 K/mm3 05/17/22 03:41 Myelocytes # 0.0 K/mm3 05/17/22 03:41 Promyelocytes # 0.0 K/mm3 05/17/22 03:41 Blast Cells # 0.0 K/mm3 05/17/22 03:41 WBC Morphology Not Reportable 05/17/22 03:41 Hypersegmented Neuts Not Reportable 05/17/22 03:41 Hyposegmented Neuts Not Reportable 05/17/22 03:41 Hypogranular Neuts Not Reportable 05/17/22 03:41 Smudge Cells Not Reportable 05/17/22 03:41 Toxic Granulation Not Reportable 05/17/22 03:41 Toxic Vacuolation Not Reportable 05/17/22 03:41 Dohle Bodies Not Reportable 05/17/22 03:41 Pelger-Huet Anomaly Not Reportable 05/17/22 03:41 Terry Rods Not Reportable 05/17/22 03:41 Platelet Estimate Consistent w auto 05/17/22 03:41 Clumped Platelets Not Reportable 05/17/22 03:41 Plt Clumps, EDTA Not Reportable 05/17/22 03:41 Large Platelets Not Reportable 05/17/22 03:41 Giant Platelets Not Reportable 05/17/22 03:41 Platelet Satelliting Not Reportable 05/17/22 03:41 Plt Morphology Comment Not Reportable 05/17/22 03:41 RBC Morphology Not Reportable 05/17/22 03:41 Dimorphic RBCs Not Reportable 05/17/22 03:41 Polychromasia Not Reportable 05/17/22 03:41 Hypochromasia Not Reportable 05/17/22 03:41 Poikilocytosis Not Reportable 05/17/22 03:41 Anisocytosis 1+ 05/17/22 03:41 Microcytosis Not Reportable 05/17/22 03:41 Macrocytosis Not Reportable 05/17/22 03:41 Spherocytes Not Reportable 05/17/22 03:41 Pappenheimer Bodies Not Reportable 05/17/22 03:41 Sickle Cells Not Reportable 05/17/22 03:41 Target Cells Not Reportable 05/17/22 03:41 Tear Drop Cells Not Reportable 05/17/22 03:41 Ovalocytes Not Reportable 05/17/22 03:41 Helmet Cells Not Reportable 05/17/22 03:41 [place] Bodies Not Reportable 05/17/22 03:41 [place] Rings Not Reportable 05/17/22 03:41 [place] Cells Not Reportable 05/17/22 03:41 Bite Cells Not Reportable 05/17/22 03:41 Crenated Cell Not Reportable 05/17/22 03:41 Elliptocytes Not Reportable 05/17/22 03:41 Acanthocytes (Spur) Not Reportable 05/17/22 03:41 Rouleaux Not Reportable 05/17/22 03:41 Hemoglobin C Crystals Not Reportable 05/17/22 03:41 Schistocytes Not Reportable 05/17/22 03:41 Malaria parasites Not Reportable 05/17/22 03:41 [place] Bodies Not Reportable 05/17/22 03:41 Hem Pathologist Commnt No 05/17/22 03:41 PT 13.6 Sec. (12.2-14.9) 04/13/22 04:30 INR 0.94 (0.87-1.13) 04/13/22 04:30 APTT 35.7 Sec. (24.2-36.6) 04/07/22 03:51 ABG pH 7.385 pH Units (7.350-7.450) 05/19/22 06:10 ABG pCO2 51.9 mm Hg 05/19/22 06:10 ABG pO2 70.5 mm Hg (80.0-90.0) L 05/19/22 06:10 ABG HCO3 30.3 mmol/L (20.0-26.0) H 05/19/22 06:10 ABG O2 Saturation 97.6 % (95.0-99.0) 05/19/22 06:10 ABG O2 Content 8.1 (0.0-44) 05/19/22 06:10 ABG Base Excess 4.9 mmol/L (-2.0-3.0) H 05/19/22 06:10 ABG Hemoglobin 5.9 gm/dl (14.0-18.0) L 05/19/22 06:10 ABG Carboxyhemoglobin 1.5 % (0.0-5.0) 05/19/22 06:10 ABG Methemoglobin 0.4 % (0.0-1.5) 05/19/22 06:10 Oxyhemoglobin 95.8 % (95.0-99.0) 05/19/22 06:10 FiO2 55 % 05/19/22 06:10 Sodium 133 mmol/L (137-145) L 05/31/22 04:55 Potassium 4.6 mmol/L (3.6-5.0) 05/31/22 04:55 Chloride 96.1 mmol/L (98-107) L 05/31/22 04:55 Carbon Dioxide 31 mmol/L (22-30) H 05/31/22 04:55 Anion Gap 11 mmol/L 05/31/22 04:55 BUN 16 mg/dL (9-20) 05/31/22 04:55 Creatinine < 0.2 mg/dL (0.8-1.3) L 05/31/22 04:55 Estimated GFR > 60 ml/min 05/31/22 04:55 BUN/Creatinine Ratio 80 % 05/31/22 04:55 Glucose 129 mg/dL (75-100) H 05/31/22 04:55 POC Glucose 116 mg/dL (70-105) H 05/31/22 06:07 Lactic Acid 1.90 mmol/L (0.7-2.0) 04/02/22 19:39 Calcium 7.9 mg/dL (8.4-10.2) L 05/31/22 04:55 Phosphorus 2.70 mg/dL (2.5-4.5) 05/22/22 05:49 Magnesium 1.80 mg/dL (1.7-2.3) 05/22/22 05:49 Total Bilirubin 0.80 mg/dL (0.1-1.2) 04/02/22 19:39 AST 15 units/L (5-40) 04/02/22 19:39 ALT 9 units/L (7-56) 04/02/22 19:39 Alkaline Phosphatase 43 units/L (35-129) 04/02/22 19:39 Total Creatine Kinase 46 units/L (55-170) L 04/08/22 17:47 CK-MB (CK-2) 2.6 ng/mL (0.0-4.0) 04/08/22 17:47 CK-MB (CK-2) Rel Index 5.6 (0-4) H 04/08/22 17:47 Troponin T 0.031 ng/mL (0.00-0.029) H 04/08/22 17:47 C-Reactive Protein 31.20 mg/dL (0.00-1.30) H 05/17/22 03:41 Total Protein 4.6 g/dL (6.3-8.2) L 04/02/22 19:39 Albumin 2.7 g/dL (3.9-5) L 04/02/22 19:39 Albumin/Globulin Ratio 1.4 % 04/02/22 19:39 Triglycerides 80 mg/dL (2-149) 04/02/22 19:39 Cholesterol 94 mg/dL (50-199) 04/02/22 19:39 LDL Cholesterol Direct 27 mg/dL (50-130) L 04/02/22 19:39 HDL Cholesterol 47 mg/dL (40-59) 04/02/22 19:39 Cholesterol/HDL Ratio 2.00 % 04/02/22 19:39 Procalcitonin 1.30 ng/mL (<0.15) 05/17/22 03:41 Urine Color Aracely (Yellow) 05/18/22 03:50 Urine Turbidity Clear (Clear) 05/18/22 03:50 Urine pH 5.0 (5.0-7.0) 05/18/22 03:50 Ur Specific [place] 1.030 (1.003-1.030) 05/18/22 03:50 Urine Protein 30 mg/dl mg/dL (Negative) 05/18/22 03:50 Urine Glucose (UA) Neg mg/dL (Negative) 05/18/22 03:50 Urine Ketones Tr mg/dL (Negative) 05/18/22 03:50 Urine Blood Neg (Negative) 05/18/22 03:50 Urine Nitrite Neg (Negative) 05/18/22 03:50 Urine Bilirubin Neg (Negative) 05/18/22 03:50 Urine Urobilinogen < 2.0 mg/dL (<2.0) 05/18/22 03:50 Ur Leukocyte Esterase Neg (Negative) 05/18/22 03:50 Urine WBC (Auto) 1.0 /HPF (0.0-6.0) 05/18/22 03:50 Urine RBC (Auto) 1.0 /HPF (0.0-6.0) 05/18/22 03:50 U Epithel Cells (Auto) 2.0 /HPF (0-13.0) 05/18/22 03:50 Urine Bacteria (Auto) 1+ /HPF (Negative) 05/18/22 03:50 Hyaline Casts 1 /LPF 04/05/22 17:45 Urine Mucus Few /HPF 05/18/22 03:50 Nasal Screen MRSA (PCR) Negative (Negative) 04/05/22 12:37 Vancomycin Trough 16.2 ug/mL (5.0-20.0) 05/20/22 20:41 Coronavirus (PCR) Negative (Negative) 04/07/22 14:52 Blood Type O POSITIVE 05/18/22 13:56 Antibody Screen Negative 05/18/22 13:56 Crossmatch See Detail 05/18/22 13:56 Perez/IV: Voiding Method Condom Catheter Active Medications - Current Medications Current Medications: Generic Name Dose Route Start Last Admin Trade Name Freq PRN Reason Stop Dose Admin Acetaminophen 650 mg 04/02/22 23:53 05/29/22 10:07 Acetaminophen 325 Mg Tab PO 650 mg Q6H PRN Administration Pain MILD(1-3)/Fever >100.5/FAITH Acetylcysteine 200 mg 05/04/22 20:00 05/30/22 21:24 Acetylcysteine 20% 200 Mg/1 Ml *For Inhalation Use* INHALATION 200 mg Q12HRT SEGUNDO Administration Albuterol 2.5 mg 05/05/22 20:00 05/30/22 21:24 Albuterol 2.5 Mg/3 Ml Nebu IH 2.5 mg Q12HRT SEGUNDO Administration Lipase/Protease/Amylase 1 each 05/20/22 15:35 Lipase 10,500/Protease 25,000/Amylase 43,750 (Units) Dr Cap FEEDTUBE PRN PRN For Clogged Feeding Tube Baclofen 10 mg 05/19/22 20:00 05/30/22 21:04 Baclofen 10 Mg Tab PO 10 mg TID SEGUNDO Administration Bisacodyl 10 mg 04/07/22 09:44 04/12/22 10:06 Bisacodyl 10 Mg Rect Supp MA 10 mg QDAY PRN Administration Constipation Docusate Sodium 100 mg 05/18/22 22:00 05/30/22 21:05 Docusate Sodium 100 Mg/10 Ml Oral Liqd FEEDTUBE 100 mg BID SEGUNDO Administration Famotidine 20 mg 04/06/22 10:00 05/30/22 21:05 Famotidine 20 Mg Tab FEEDTUBE 20 mg BID SEGUNDO Administration Fentanyl 50 mcg 04/04/22 15:56 05/19/22 21:24 Fentanyl 100 Mcg/2 Ml Inj IV 50 mcg Q2HR PRN Administration For CPOT of greater than 3 Heparin Sodium (Porcine) 5,000 unit 04/03/22 06:00 05/31/22 06:11 Heparin 5,000 Unit/1 Ml Vial SUB-Q 5,000 unit Q8HR SEGUNDO Administration CEFTAZIDIME/AVIBACTAM 2.5 gm/ 50 mls @ 25 mls/hr 05/26/22 09:00 05/31/22 01:55 Sodium Chloride IV 06/05/22 02:59 25 mls/hr Q8H SEGUNDO Administration Insulin Human Lispro 0 unit 05/05/22 06:00 05/31/22 06:13 Insulin Lispro 100 Unit/Ml SUB-Q Not Given Q8HR [facility] Protocol Magnesium Hydroxide 30 ml 04/02/22 23:53 Magnesium Hydroxide (Mom) Oral Liqd Udc PO Q4H PRN Constipation Metoprolol Tartrate 12.5 mg 05/29/22 22:00 05/30/22 21:05 Metoprolol Tartrate 25 Mg Tab FEEDTUBE 12.5 mg BID SEGUNDO Administration Ondansetron HCl 4 mg 04/02/22 23:53 Ondansetron 4 Mg/2 Ml Inj IV Q8H PRN Nausea And Vomiting Polyethylene Glycol 17 gm 05/18/22 15:00 05/30/22 09:16 Polyethylene Glycol 3350 17 Gm Powder FEEDTUBE 17 gm QDAY SEGUNDO Administration Quetiapine Fumarate 50 mg 05/13/22 11:00 05/30/22 21:05 Quetiapine 100 Mg Tab FEEDTUBE 50 mg BID SEGUNDO Administration Scopolamine 1 each 05/12/22 09:00 05/30/22 09:15 Scopolamine Transdermal Patch 72 Hr TD 1 each Q3D SEGUNDO Administration Senna 8.8 mg 05/18/22 22:00 05/30/22 21:06 Sennosides Oral Liqd 8.8 Mg/5 Ml Oral Liqd FEEDTUBE Not Given QHS SEGUNDO Simple Syrup 15 ml 05/20/22 15:35 Simple Syrup 15 Ml FEEDTUBE PRN PRN Hypoglycemia Simple Syrup 30 ml 05/20/22 15:35 Simple Syrup 15 Ml FEEDTUBE PRN PRN Hypoglycemia Sodium Bicarbonate 325 mg 05/20/22 15:35 Sodium Bicarbonate 325 Mg Tab FEEDTUBE PRN PRN For Clogged Feeding Tube Sodium Chloride 10 ml 04/03/22 10:00 05/30/22 21:06 Sodium Chloride 0.9% 10 Ml Flush Syringe IV 10 ml BID SEGUNDO Administration Sodium Chloride 10 ml 04/02/22 23:53 05/16/22 05:10 Sodium Chloride 0.9% 10 Ml Flush Syringe IV 10 ml PRN PRN Administration LINE FLUSH Nutrition/Malnutrition Assess - Dietary Evaluation Nutrition/Malnutrition Findings: Nutrition Notes Start: 04/04/22 13:13 Freq: Status: Active Protocol: Document 05/27/22 09:47 COLLEEN (Rec: 05/27/22 10:19 COLLEEN [id number]) Nutrition Notes Initial or Follow up Reassessment Current Diagnosis Coronary Artery Disease, Decubitus(Pressure Ulcer), Sepsis,Respiratory Failure Other Pertinent Diagnosis HCAP, ALS, Broncopneumonia, NSTEMI, Cardiomyopathy, ... Current Diet TF-Osmolite 1.5 Inderjit @ 55 ml/hr (since D 05/19). Labs/Tests 05/27: Na 134, Cl 92.4, CO2 37 , Crea <0.2, Glu 140, Ca 8.2. Pertinent Medications 05/27: Nutritionaslly unremerkable. Height 5 ft 4.8 in Weight 54.3 kg [place] Body Weight (kg) 61.27 BMI 20.0 Weight change and time frame 5.7 Kg body weight gain reported in 1 week. Weight Status Appropriate Subjective/Other Information RD consult for routine F/U on TF tolerance/continuation. TF continues as prescribed, and well tolerated with no residuals, according to RN notes. Pt continues on Mechanical Ventilation, O2 saturation @ 99%, according to Physical Assessment History notes. Procedure on 05/24: WoundVac changed, wound cleaned, and skin substitute in place, well tolerated, according to Operative Report. Plans to discharge on 05/27, on [facility], Pt tolerating well, according to [facility] notes. Percent of energy/protein needs met: Prescribed TF-Osmolite 1.5 Inderjit @ 55 ml/hr provides for energy/protein needs (1,980 Kcal/83 g) during LOS, 102% Kcal; 100% AA. Burn Absent Trauma Absent GI Symptoms Constipation Difficulty In Swallowing,Chewing Food Allergy No Skin Integrity/Comment Stage IV Sacral Ulcer. Current % PO Other Minimum of two criteria No Fluid Accumulation N/A Reduced Diesel Lube Tech Strength N/A (non-severe) Protein-Calorie Malnutrition N\A #1 Nutrition Diagnosis Inadequate oral intake Diagnosis Progress(for reassessment Continues documentation) Is patient on ventilator? Yes Is Patient Ambulatory and/or Out of Bed No REE-([facility]-confined to bed) 1566.648 Kcal/Kg value to use for calculation 36 Approximate Energy Requirements Using 1955 kcal/Kg Calculation Used for Recommendations Kcal/kg Additional Notes Protein: 1.5-2 g/Kg ABW; 73-98 g/day. Fluids: 1 ml/Kcal, or as per MD. Nutrition Intervention Nutrition Support: Continue TF-Osmolite 1.5 Inderjit @ 55 ml/hr. Flush: 150 ml water Q 4 hr, or as per MD. Kcal 1,980 Protein (gm) 83 Carbohydrates (gm) 269 Fat (gm) 65 Fluid (mL) 1,006 Fiber (gm) 0 % RDI: 102% Kcal; 100% AA. Goal #1 Provide at least 75% of energy /protein needs through Enteral Feeding during LOS. Follow-Up By: 06/10/22 Additional Comments Continue monitoring TF tolerance and BM.
--- NOTE | 2022-05-30 11:47 | Progress Note ---
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 Protein calorie malnutrition Acute Bronchopneumonia HCAP Hypotension NSTEMI Hypernatremia Acute Metabolic Encephalopathy H/O Amyotrophic Lateral Sclerosis Nonverbal at Baseline Thrombocytopenia Protein Caloric Malnutrition Constipation - continue to wean supplemental oxygen for target O2 sat's > 90% acutely - continue Avycaz, de-escalate per ID recommendations (10 days) - continue wound care per RN/WCN/Surgeon - discharge planning ongoing concurrently - continue care as below otherwise; - continue daily SAT and SBT assessment as tolerated while in hospital - continue to optimize nutritional status - bronchoscopy if develops large volume atelectasis - continue mucomyst nebs for thick tenacious secretions - continue scheduled CPT - continue Seroquel for anxiolysis / delirium - continue bronchodilators with pulmonary hygiene per RT - VAP bundle addressed - continue lung protective strategies - wean per pulmonary driven protocols otherwise - continue accuchecks with glycemic control per SSI (While critically ill target blood glucose of 140-180 mg/dL; avoid hypoglycemia) - sedation prn for target RASS 0 to -1 - avoid nephrotoxins, renally dose all medications - continue to avoid benzodiazepine's, reduce the possibility of delirium - AB's per ID rec's - prn analgesia per CPOT score - Maintenance of sleep-wake cycle, avoid delirium - continue enteral nutritional support at goal rate as tolerated - G.I. & VTE prophylaxis - PT/OT/ROM exercises - continue mobility protocols for pressure ulcer prophylaxis - Monitor hemodynamics closely - continue other care per attending / other consultants - discharge planning ongoing concurrently COVID SPECIFIC INTERVENTIONS - test negative .... Re-evaluate in am & prn CONDITION: CRITICAL PROGNOSIS: GUARDED CODE STATUS: FULL CODE The high probability of a clinically significant, sudden or life-threatening deterioration of the [respiratory, cardiovascular & neurologic] system(s) required my full and direct attention, intervention and personal management. The aggregate critical care time was [35] minutes without overlap. Time includes spent on; [x] Data Review and interpretation [x] Patient assessment and monitoring of vital signs [x] Documentation [x] Medication orders and management Subjective Date of service: 05/30/22 Principal diagnosis: Ac and ch hypercapnic and hypoxemic Resp Failure; ALS; HCAP; Sepsis; NSTEMI Interval history: Patient is seen today for: Acute and chronic hypercapnic and hypoxemic Respiratory Failure; ALS; HCAP; Sepsis; NSTEMI; AMS; Hypernatremia; Thrombocytopenia; Protein Caloric Malnutrition; Constipation Seen and examined at bedside; 24hour events reviewed; nursing and respiratory care staff consulted; no adverse overnight events reported to me; resting peacefully in bed; remains on MVS via home ventilator and tolerating well; no emesis or overt aspiration and afebrile Objective Vital Signs - 12hr 05/30/22 05/30/22 05/30/22 00:00 01:00 02:00 Temperature 97.6 F Pulse Rate 116 H 111 H 127 H Pulse Rate [ Bilateral Throughout] Pulse Rate [ 108 H From Monitor] Respiratory 21 11 L 10 L Rate Respiratory Rate [Bilateral Throughout] Blood Pressure 99/46 89/55 97/52 O2 Sat by Pulse 100 100 95 Oximetry O2 Sat by Pulse 99 Oximetry [ Assessment] 05/30/22 05/30/22 05/30/22 03:00 04:00 05:00 Temperature 98.4 F Pulse Rate 133 H 123 H 111 H Pulse Rate [ Bilateral Throughout] Pulse Rate [ 119 H From Monitor] Respiratory 20 24 23 Rate Respiratory Rate [Bilateral Throughout] Blood Pressure 99/54 92/50 90/51 O2 Sat by Pulse 94 95 96 Oximetry O2 Sat by Pulse Oximetry [ Assessment] 05/30/22 05/30/22 05/30/22 06:00 07:00 07:35 Temperature Pulse Rate 107 H 102 H 107 H Pulse Rate [ Bilateral Throughout] Pulse Rate [ From Monitor] Respiratory 18 18 Rate Respiratory Rate [Bilateral Throughout] Blood Pressure 98/51 107/66 107/66 O2 Sat by Pulse 99 96 99 Oximetry O2 Sat by Pulse Oximetry [ Assessment] 05/30/22 05/30/22 05/30/22 07:39 07:40 08:00 Temperature 99.1 F Pulse Rate 98 H Pulse Rate [ 101 H Bilateral Throughout] Pulse Rate [ From Monitor] Respiratory 17 Rate Respiratory 15 Rate [Bilateral Throughout] Blood Pressure 103/69 O2 Sat by Pulse Oximetry O2 Sat by Pulse Oximetry [ Assessment] 05/30/22 05/30/22 05/30/22 08:10 09:00 09:14 Temperature Pulse Rate 112 H 105 H Pulse Rate [ Bilateral Throughout] Pulse Rate [ 105 H From Monitor] Respiratory 9 L Rate Respiratory Rate [Bilateral Throughout] Blood Pressure 109/71 109/71 O2 Sat by Pulse 100 97 Oximetry O2 Sat by Pulse Oximetry [ Assessment] 05/30/22 05/30/22 05/30/22 10:00 10:12 11:00 Temperature Pulse Rate 98 H 114 H 111 H Pulse Rate [ Bilateral Throughout] Pulse Rate [ From Monitor] Respiratory 18 24 Rate Respiratory Rate [Bilateral Throughout] Blood Pressure 96/60 96/60 105/68 O2 Sat by Pulse 98 95 87 Oximetry O2 Sat by Pulse Oximetry [ Assessment] 05/30/22 11:40 Temperature 98.7 F Pulse Rate Pulse Rate [ Bilateral Throughout] Pulse Rate [ From Monitor] Respiratory Rate Respiratory Rate [Bilateral Throughout] Blood Pressure O2 Sat by Pulse Oximetry O2 Sat by Pulse Oximetry [ Assessment] Constitutional: no acute distress, alert, other (resting in bed with normal respiratory effort at rest) Eyes: non-icteric ENT: oropharynx moist, other (+ midline tracheostomy to home vent) Neck: supple, no lymphadenopathy, no JVD Effort: mildly labored Ascultation: Bilateral: diminished breath sounds (bases), rhonchi Percussion: Bilateral: not dull Cardiovascular: regular rate and rhythm, other (S1,S2) Gastrointestinal: normoactive bowel sounds, soft, non-tender, non-distended Integumentary: normal, decubitus ulcer (see wound care pictures- wound vac) Extremities: no cyanosis, no edema, pink and warm, pulses normal Neurologic: pupils equal and round, other (functional quadriplegia) Psychiatric: mood appropriate, affect normal CBC and BMP: 05/31/22 04:55 05/31/22 04:55 ABG, PT/INR, D-dimer: ABG ABG pH 7.385 pH Units (7.350-7.450) 05/19/22 06:10 ABG pCO2 51.9 mm Hg 05/19/22 06:10 ABG pO2 70.5 mm Hg (80.0-90.0) L 05/19/22 06:10 ABG O2 Saturation 97.6 % (95.0-99.0) 05/19/22 06:10 PT/INR, D-dimer PT 13.6 Sec. (12.2-14.9) 04/13/22 04:30 INR 0.94 (0.87-1.13) 04/13/22 04:30 Abnormal lab findings: Abnormal Labs 04/02/22 04/02/22 04/02/22 19:39 19:39 19:39 WBC 14.3 H RBC Hgb Hct MCV 96 H MCH MCHC RDW Plt Count 104 L Lymph % (Auto) [place] % (Auto) Lymph # (Auto) [place] # (Auto) Seg Neutrophils % Seg Neuts % (Manual) 94.0 H Lymphocytes % (Manual) 1.0 L Seg Neutrophils # Seg Neutrophils # Man 13.4 H Lymphocytes # (Manual) 0.1 L PT 15.9 H INR 1.14 H ABG pH ABG pO2 ABG HCO3 ABG O2 Saturation ABG Base Excess ABG Hemoglobin Oxyhemoglobin Sodium 151 H Potassium Chloride Carbon Dioxide BUN Creatinine 0.5 L Glucose POC Glucose Calcium 8.2 L Phosphorus Magnesium 1.60 L Total Creatine Kinase CK-MB (CK-2) Rel Index Troponin T 0.048 H C-Reactive Protein Total Protein 4.6 L Albumin 2.7 L LDL Cholesterol Direct 27 L Urine WBC (Auto) Crossmatch 04/02/22 04/03/22 04/03/22 19:42 05:14 06:30 WBC RBC Hgb Hct MCV MCH MCHC RDW Plt Count Lymph % (Auto) [place] % (Auto) Lymph # (Auto) [place] # (Auto) Seg Neutrophils % Seg Neuts % (Manual) Lymphocytes % (Manual) Seg Neutrophils # Seg Neutrophils # Man Lymphocytes # (Manual) PT INR ABG pH 7.471 H 7.496 H ABG pO2 47.8 L 91.0 H ABG HCO3 30.6 H ABG O2 Saturation 94.4 L ABG Base Excess 6.2 H ABG Hemoglobin 11.0 L 12.8 L Oxyhemoglobin 93.1 L Sodium 149 H Potassium 3.4 L Chloride Carbon Dioxide BUN Creatinine 0.4 L Glucose POC Glucose Calcium Phosphorus Magnesium Total Creatine Kinase CK-MB (CK-2) Rel Index Troponin T C-Reactive Protein Total Protein Albumin LDL Cholesterol Direct Urine WBC (Auto) Crossmatch 04/04/22 04/04/22 04/04/22 04:18 04:18 05:50 WBC 11.8 H RBC Hgb Hct MCV MCH MCHC RDW Plt Count 132 L Lymph % (Auto) [place] % (Auto) Lymph # (Auto) [place] # (Auto) Seg Neutrophils % Seg Neuts % (Manual) Lymphocytes % (Manual) Seg Neutrophils # Seg Neutrophils # Man Lymphocytes # (Manual) PT INR ABG pH 7.517 H ABG pO2 115.5 H ABG HCO3 29.9 H ABG O2 Saturation ABG Base Excess 6.7 H ABG Hemoglobin 12.3 L Oxyhemoglobin Sodium Potassium 3.5 L Chloride Carbon Dioxide 31 H BUN Creatinine 0.3 L Glucose 153 H POC Glucose Calcium Phosphorus 1.40 L Magnesium 1.50 L Total Creatine Kinase CK-MB (CK-2) Rel Index Troponin T C-Reactive Protein 31.60 H Total Protein Albumin LDL Cholesterol Direct Urine WBC (Auto) Crossmatch 04/05/22 04/05/22 04/05/22 02:50 05:25 11:28 WBC RBC Hgb Hct MCV MCH MCHC RDW Plt Count Lymph % (Auto) [place] % (Auto) Lymph # (Auto) [place] # (Auto) Seg Neutrophils % Seg Neuts % (Manual) Lymphocytes % (Manual) Seg Neutrophils # Seg Neutrophils # Man Lymphocytes # (Manual) PT INR ABG pH 7.455 H ABG pO2 50.7 L ABG HCO3 30.5 H ABG O2 Saturation 89.4 L ABG Base Excess 5.9 H ABG Hemoglobin 11.8 L Oxyhemoglobin 88.2 L Sodium Potassium Chloride Carbon Dioxide 32 H BUN Creatinine 0.2 L Glucose 110 H POC Glucose 124 H Calcium 7.9 L Phosphorus Magnesium Total Creatine Kinase CK-MB (CK-2) Rel Index Troponin T C-Reactive Protein Total Protein Albumin LDL Cholesterol Direct Urine WBC (Auto) Crossmatch 04/05/22 04/05/22 04/06/22 17:45 Unknown 04:00 WBC RBC 3.55 L Hgb 11.1 L 11.5 L Hct 33.2 L 35.1 L MCV MCH MCHC RDW Plt Count 113 L 114 L Lymph % (Auto) [place] % (Auto) Lymph # (Auto) [place] # (Auto) Seg Neutrophils % Seg Neuts % (Manual) Lymphocytes % (Manual) Seg Neutrophils # Seg Neutrophils # Man Lymphocytes # (Manual) PT INR ABG pH ABG pO2 ABG HCO3 ABG O2 Saturation ABG Base Excess ABG Hemoglobin Oxyhemoglobin Sodium Potassium Chloride Carbon Dioxide BUN Creatinine Glucose POC Glucose Calcium Phosphorus Magnesium Total Creatine Kinase CK-MB (CK-2) Rel Index Troponin T C-Reactive Protein Total Protein Albumin LDL Cholesterol Direct Urine WBC (Auto) 8.0 H Crossmatch 04/06/22 04/06/22 04/07/22 04:00 08:30 00:04 WBC RBC Hgb Hct MCV MCH MCHC RDW Plt Count Lymph % (Auto) [place] % (Auto) Lymph # (Auto) [place] # (Auto) Seg Neutrophils % Seg Neuts % (Manual) Lymphocytes % (Manual) Seg Neutrophils # Seg Neutrophils # Man Lymphocytes # (Manual) PT INR ABG pH ABG pO2 60.8 L ABG HCO3 30.5 H ABG O2 Saturation 93.3 L ABG Base Excess 4.9 H ABG Hemoglobin 12.4 L Oxyhemoglobin 92.1 L Sodium Potassium 3.0 L Chloride Carbon Dioxide BUN Creatinine < 0.2 L Glucose 130 H POC Glucose 117 H Calcium 8.1 L Phosphorus Magnesium Total Creatine Kinase CK-MB (CK-2) Rel Index Troponin T C-Reactive Protein Total Protein Albumin LDL Cholesterol Direct Urine WBC (Auto) Crossmatch 04/07/22 04/07/22 04/07/22 03:51 03:51 03:51 WBC 14.6 H RBC 3.57 L Hgb 11.1 L Hct 33.2 L MCV MCH MCHC RDW Plt Count 118 L Lymph % (Auto) 4.3 L [place] % (Auto) 8.8 H Lymph # (Auto) 0.6 L [place] # (Auto) 1.3 H Seg Neutrophils % 86.6 H Seg Neuts % (Manual) Lymphocytes % (Manual) Seg Neutrophils # 12.7 H Seg Neutrophils # Man Lymphocytes # (Manual) PT 15.2 H INR ABG pH ABG pO2 ABG HCO3 ABG O2 Saturation ABG Base Excess ABG Hemoglobin Oxyhemoglobin Sodium 133 L Potassium Chloride 96.0 L Carbon Dioxide 31 H BUN Creatinine 0.2 L Glucose 130 H POC Glucose Calcium 8.0 L Phosphorus Magnesium Total Creatine Kinase CK-MB (CK-2) Rel Index Troponin T C-Reactive Protein Total Protein Albumin LDL Cholesterol Direct Urine WBC (Auto) Crossmatch 04/07/22 04/07/22 04/08/22 04:25 09:10 04:49 WBC 16.1 H RBC 3.54 L Hgb 10.9 L Hct 33.3 L MCV MCH MCHC RDW Plt Count Lymph % (Auto) [place] % (Auto) Lymph # (Auto) [place] # (Auto) Seg Neutrophils % Seg Neuts % (Manual) Lymphocytes % (Manual) Seg Neutrophils # Seg Neutrophils # Man Lymphocytes # (Manual) PT INR ABG pH ABG pO2 71.0 L 63.4 L ABG HCO3 31.5 H 40.0 H ABG O2 Saturation 94.9 L ABG Base Excess 5.9 H 13.6 H ABG Hemoglobin 11.3 L 9.0 L Oxyhemoglobin 93.6 L Sodium Potassium Chloride Carbon Dioxide BUN Creatinine Glucose POC Glucose Calcium Phosphorus Magnesium Total Creatine Kinase CK-MB (CK-2) Rel Index Troponin T C-Reactive Protein Total Protein Albumin LDL Cholesterol Direct Urine WBC (Auto) Crossmatch 04/08/22 04/08/22 04/08/22 04:49 09:53 10:25 WBC RBC Hgb Hct MCV MCH MCHC RDW Plt Count Lymph % (Auto) [place] % (Auto) Lymph # (Auto) [place] # (Auto) Seg Neutrophils % Seg Neuts % (Manual) Lymphocytes % (Manual) Seg Neutrophils # Seg Neutrophils # Man Lymphocytes # (Manual) PT INR ABG pH ABG pO2 ABG HCO3 34.7 H ABG O2 Saturation ABG Base Excess 7.9 H ABG Hemoglobin 11.0 L Oxyhemoglobin Sodium 136 L Potassium Chloride 97.7 L Carbon Dioxide 33 H BUN Creatinine 0.2 L Glucose 155 H POC Glucose Calcium Phosphorus Magnesium Total Creatine Kinase CK-MB (CK-2) Rel Index Troponin T 0.030 H C-Reactive Protein Total Protein Albumin LDL Cholesterol Direct Urine WBC (Auto) Crossmatch 04/08/22 04/08/22 04/08/22 11:19 17:47 18:06 WBC RBC Hgb Hct MCV MCH MCHC RDW Plt Count Lymph % (Auto) [place] % (Auto) Lymph # (Auto) [place] # (Auto) Seg Neutrophils % Seg Neuts % (Manual) Lymphocytes % (Manual) Seg Neutrophils # Seg Neutrophils # Man Lymphocytes # (Manual) PT INR ABG pH ABG pO2 ABG HCO3 ABG O2 Saturation ABG Base Excess ABG Hemoglobin Oxyhemoglobin Sodium Potassium Chloride Carbon Dioxide BUN Creatinine Glucose POC Glucose 121 H Calcium Phosphorus Magnesium Total Creatine Kinase 31 L 46 L CK-MB (CK-2) Rel Index 6.4 H 5.6 H Troponin T 0.030 H 0.031 H C-Reactive Protein Total Protein Albumin LDL Cholesterol Direct Urine WBC (Auto) Crossmatch 04/09/22 04/09/2204/09/22 04:35 04:35 11:24 WBC 11.5 H RBC 3.16 L Hgb 9.9 L Hct 29.4 L MCV MCH MCHC RDW Plt Count 131 L Lymph % (Auto) [place] % (Auto) Lymph # (Auto) [place] # (Auto) Seg Neutrophils % Seg Neuts % (Manual) Lymphocytes % (Manual) Seg Neutrophils # Seg Neutrophils # Man Lymphocytes # (Manual) PT INR ABG pH ABG pO2 ABG HCO3 ABG O2 Saturation ABG Base Excess ABG Hemoglobin Oxyhemoglobin Sodium Potassium Chloride 97.1 L Carbon Dioxide 35 H BUN Creatinine < 0.2 L Glucose 145 H POC Glucose 147 H Calcium Phosphorus Magnesium Total Creatine Kinase CK-MB (CK-2) Rel Index Troponin T C-Reactive Protein Total Protein Albumin LDL Cholesterol Direct Urine WBC (Auto) Crossmatch 04/09/22 04/09/22 04/09/22 13:00 17:32 23:48 WBC RBC Hgb Hct MCV MCH MCHC RDW Plt Count Lymph % (Auto) [place] % (Auto) Lymph # (Auto) [place] # (Auto) Seg Neutrophils % Seg Neuts % (Manual) Lymphocytes % (Manual) Seg Neutrophils # Seg Neutrophils # Man Lymphocytes # (Manual) PT INR ABG pH ABG pO2 66.6 L ABG HCO3 38.2 H ABG O2 Saturation 94.4 L ABG Base Excess 10.7 H ABG Hemoglobin 10.7 L Oxyhemoglobin 92.8 L Sodium Potassium Chloride Carbon Dioxide BUN Creatinine Glucose POC Glucose 143 H 114 H Calcium Phosphorus Magnesium Total Creatine Kinase CK-MB (CK-2) Rel Index Troponin T C-Reactive Protein Total Protein Albumin LDL Cholesterol Direct Urine WBC (Auto) Crossmatch 04/10/22 04/10/22 04/10/22 04:48 04:48 05:34 WBC RBC 2.91 L Hgb 9.1 L Hct 27.7 L MCV 95 H MCH MCHC RDW Plt Count Lymph % (Auto) [place] % (Auto) Lymph # (Auto) [place] # (Auto) Seg Neutrophils % Seg Neuts % (Manual) Lymphocytes % (Manual) Seg Neutrophils # Seg Neutrophils # Man Lymphocytes # (Manual) PT INR ABG pH ABG pO2 ABG HCO3 ABG O2 Saturation ABG Base Excess ABG Hemoglobin Oxyhemoglobin Sodium Potassium Chloride 95.7 L Carbon Dioxide 38 H BUN Creatinine < 0.2 L Glucose 118 H POC Glucose 127 H Calcium Phosphorus Magnesium Total Creatine Kinase CK-MB (CK-2) Rel Index Troponin T C-Reactive Protein Total Protein Albumin LDL Cholesterol Direct Urine WBC (Auto) Crossmatch 04/10/22 04/11/22 04/11/22 23:10 04:15 04:15 WBC 17.2 H RBC 2.98 L Hgb 9.2 L Hct 27.9 L MCV MCH MCHC RDW Plt Count Lymph % (Auto) [place] % (Auto) Lymph # (Auto) [place] # (Auto) Seg Neutrophils % Seg Neuts % (Manual) Lymphocytes % (Manual) Seg Neutrophils # Seg Neutrophils # Man Lymphocytes # (Manual) PT INR ABG pH ABG pO2 ABG HCO3 ABG O2 Saturation ABG Base Excess ABG Hemoglobin Oxyhemoglobin Sodium Potassium Chloride 96.1 L Carbon Dioxide 35 H BUN Creatinine < 0.2 L Glucose 138 H POC Glucose 106 H Calcium 8.3 L Phosphorus Magnesium Total Creatine Kinase CK-MB (CK-2) Rel Index Troponin T C-Reactive Protein Total Protein Albumin LDL Cholesterol Direct Urine WBC (Auto) Crossmatch 04/11/22 04/11/22 04/11/22 05:31 13:18 16:20 WBC RBC Hgb Hct MCV MCH MCHC RDW Plt Count Lymph % (Auto) [place] % (Auto) Lymph # (Auto) [place] # (Auto) Seg Neutrophils % Seg Neuts % (Manual) Lymphocytes % (Manual) Seg Neutrophils # Seg Neutrophils # Man Lymphocytes # (Manual) PT INR ABG pH ABG pO2 57.8 L ABG HCO3 40.5 H ABG O2 Saturation 90.6 L ABG Base Excess 12.6 H ABG Hemoglobin 10.5 L Oxyhemoglobin 89.0 L Sodium Potassium Chloride Carbon Dioxide BUN Creatinine Glucose POC Glucose 129 H 132 H Calcium Phosphorus Magnesium Total Creatine Kinase CK-MB (CK-2) Rel Index Troponin T C-Reactive Protein Total Protein Albumin LDL Cholesterol Direct Urine WBC (Auto) Crossmatch 04/11/22 04/11/22 04/12/22 17:29 23:17 04:00 WBC 17.4 H RBC 2.96 L Hgb 9.0 L Hct 28.0 L MCV 95 H MCH MCHC RDW Plt Count Lymph % (Auto) [place] % (Auto) Lymph # (Auto) [place] # (Auto) Seg Neutrophils % Seg Neuts % (Manual) Lymphocytes % (Manual) Seg Neutrophils # Seg Neutrophils # Man Lymphocytes # (Manual) PT INR ABG pH ABG pO2 ABG HCO3 ABG O2 Saturation ABG Base Excess ABG Hemoglobin Oxyhemoglobin Sodium Potassium Chloride Carbon Dioxide BUN Creatinine Glucose POC Glucose 125 H 151 H Calcium Phosphorus Magnesium Total Creatine Kinase CK-MB (CK-2) Rel Index Troponin T C-Reactive Protein Total Protein Albumin LDL Cholesterol Direct Urine WBC (Auto) Crossmatch 04/12/22 04/12/22 04/12/22 04:00 17:03 23:39 WBC RBC Hgb Hct MCV MCH MCHC RDW Plt Count Lymph % (Auto) [place] % (Auto) Lymph # (Auto) [place] # (Auto) Seg Neutrophils % Seg Neuts % (Manual) Lymphocytes % (Manual) Seg Neutrophils # Seg Neutrophils # Man Lymphocytes # (Manual) PT INR ABG pH ABG pO2 ABG HCO3 ABG O2 Saturation ABG Base Excess ABG Hemoglobin Oxyhemoglobin Sodium Potassium Chloride 97.4 L Carbon Dioxide 37 H BUN Creatinine < 0.2 L Glucose 127 H POC Glucose 106 H 107 H Calcium Phosphorus Magnesium Total Creatine Kinase CK-MB (CK-2) Rel Index Troponin T C-Reactive Protein Total Protein Albumin LDL Cholesterol Direct Urine WBC (Auto) Crossmatch 04/13/22 04/13/22 04/13/22 04:30 04:30 17:39 WBC 14.1 H RBC 2.66 L Hgb 8.4 L Hct 25.5 L MCV 96 H MCH MCHC RDW Plt Count Lymph % (Auto) [place] % (Auto) Lymph # (Auto) [place] # (Auto) Seg Neutrophils % Seg Neuts % (Manual) Lymphocytes % (Manual) Seg Neutrophils # Seg Neutrophils # Man Lymphocytes # (Manual) PT INR ABG pH ABG pO2 ABG HCO3 ABG O2 Saturation ABG Base Excess ABG Hemoglobin Oxyhemoglobin Sodium Potassium Chloride 93.9 L Carbon Dioxide 39 H BUN Creatinine < 0.2 L Glucose POC Glucose 134 H Calcium Phosphorus 1.90 L Magnesium Total Creatine Kinase CK-MB (CK-2) Rel Index Troponin T C-Reactive Protein Total Protein Albumin LDL Cholesterol Direct Urine WBC (Auto) Crossmatch 04/14/22 04/14/22 04/14/22 05:03 05:03 09:10 WBC 15.6 H RBC 3.02 L Hgb 9.3 L Hct 28.8 L MCV 95 H MCH MCHC RDW Plt Count Lymph % (Auto) [place] % (Auto) Lymph # (Auto) [place] # (Auto) Seg Neutrophils % Seg Neuts % (Manual) Lymphocytes % (Manual) Seg Neutrophils # Seg Neutrophils # Man Lymphocytes # (Manual) PT INR ABG pH ABG pO2 66.9 L ABG HCO3 44.5 H ABG O2 Saturation ABG Base Excess 17.2 H ABG Hemoglobin 8.1 L Oxyhemoglobin 94.8 L Sodium Potassium Chloride 93.8 L Carbon Dioxide 42 H* BUN Creatinine < 0.2 L Glucose 117 H POC Glucose Calcium Phosphorus Magnesium Total Creatine Kinase CK-MB (CK-2) Rel Index Troponin T C-Reactive Protein Total Protein Albumin LDL Cholesterol Direct Urine WBC (Auto) Crossmatch 04/15/22 04/15/22 04/16/22 04:44 04:44 04:16 WBC 13.0 H 12.6 H RBC 3.19 L 3.09 L Hgb 9.6 L 9.5 L Hct 30.2 L 29.1 L MCV 95 H MCH MCHC RDW Plt Count 456 H Lymph % (Auto) [place] % (Auto) Lymph # (Auto) [place] # (Auto) Seg Neutrophils % Seg Neuts % (Manual) Lymphocytes % (Manual) Seg Neutrophils # Seg Neutrophils # Man Lymphocytes # (Manual) PT INR ABG pH ABG pO2 ABG HCO3 ABG O2 Saturation ABG Base Excess ABG Hemoglobin Oxyhemoglobin Sodium Potassium Chloride 95.5 L Carbon Dioxide 37 H BUN Creatinine < 0.2 L Glucose POC Glucose Calcium Phosphorus Magnesium Total Creatine Kinase CK-MB (CK-2) Rel Index Troponin T C-Reactive Protein Total Protein Albumin LDL Cholesterol Direct Urine WBC (Auto) Crossmatch 04/16/22 04/16/22 04/16/22 04:16 05:00 14:00 WBC RBC Hgb Hct MCV MCH MCHC RDW Plt Count Lymph % (Auto) [place] % (Auto) Lymph # (Auto) [place] # (Auto) Seg Neutrophils % Seg Neuts % (Manual) Lymphocytes % (Manual) Seg Neutrophils # Seg Neutrophils # Man Lymphocytes # (Manual) PT INR ABG pH 7.324 L ABG pO2 55.6 L ABG HCO3 45.3 H ABG O2 Saturation 87.1 L ABG Base Excess 16.6 H ABG Hemoglobin 8.6 L Oxyhemoglobin 85.7 L Sodium Potassium Chloride 97.6 L Carbon Dioxide 36 H BUN Creatinine < 0.2 L Glucose 109 H POC Glucose 120 H Calcium Phosphorus Magnesium Total Creatine Kinase CK-MB (CK-2) Rel Index Troponin T C-Reactive Protein Total Protein Albumin LDL Cholesterol Direct Urine WBC (Auto) Crossmatch 04/17/22 04/17/22 04/17/22 04:36 04:36 04:57 WBC 14.4 H RBC 3.08 L Hgb 9.4 L Hct 29.0 L MCV MCH MCHC RDW Plt Count Lymph % (Auto) [place] % (Auto) Lymph # (Auto) [place] # (Auto) Seg Neutrophils % Seg Neuts % (Manual) Lymphocytes % (Manual) Seg Neutrophils # Seg Neutrophils # Man Lymphocytes # (Manual) PT INR ABG pH ABG pO2 ABG HCO3 ABG O2 Saturation ABG Base Excess ABG Hemoglobin Oxyhemoglobin Sodium Potassium Chloride 95.9 L Carbon Dioxide 39 H BUN Creatinine < 0.2 L Glucose 140 H POC Glucose 137 H Calcium 8.3 L Phosphorus Magnesium Total Creatine Kinase CK-MB (CK-2) Rel Index Troponin T C-Reactive Protein Total Protein Albumin LDL Cholesterol Direct Urine WBC (Auto) Crossmatch 04/17/22 04/17/22 04/18/22 09:15 18:01 04:20 WBC 11.2 H RBC 3.00 L Hgb 9.3 L Hct 28.6 L MCV 95 H MCH MCHC RDW Plt Count Lymph % (Auto) [place] % (Auto) Lymph # (Auto) [place] # (Auto) Seg Neutrophils % Seg Neuts % (Manual) Lymphocytes % (Manual) Seg Neutrophils # Seg Neutrophils # Man Lymphocytes # (Manual) PT INR ABG pH 7.345 L ABG pO2 ABG HCO3 48.2 H ABG O2 Saturation ABG Base Excess 19.2 H ABG Hemoglobin 9.7 L Oxyhemoglobin Sodium Potassium Chloride Carbon Dioxide BUN Creatinine Glucose POC Glucose 129 H Calcium Phosphorus Magnesium Total Creatine Kinase CK-MB (CK-2) Rel Index Troponin T C-Reactive Protein Total Protein Albumin LDL Cholesterol Direct Urine WBC (Auto) Crossmatch 04/18/22 04/18/22 04/18/22 04:20 17:35 23:50 WBC RBC Hgb Hct MCV MCH MCHC RDW Plt Count Lymph % (Auto) [place] % (Auto) Lymph # (Auto) [place] # (Auto) Seg Neutrophils % Seg Neuts % (Manual) Lymphocytes % (Manual) Seg Neutrophils # Seg Neutrophils # Man Lymphocytes # (Manual) PT INR ABG pH ABG pO2 ABG HCO3 ABG O2 Saturation ABG Base Excess ABG Hemoglobin Oxyhemoglobin Sodium Potassium Chloride 96.8 L Carbon Dioxide 43 H* BUN 22 H Creatinine < 0.2 L Glucose 137 H POC Glucose 128 H 123 H Calcium 8.2 L Phosphorus Magnesium Total Creatine Kinase CK-MB (CK-2) Rel Index Troponin T C-Reactive Protein Total Protein Albumin LDL Cholesterol Direct Urine WBC (Auto) Crossmatch 04/19/22 04/19/22 04/19/22 04:08 04:08 08:50 WBC 16.8 H RBC 3.18 L Hgb 9.8 L Hct 30.1 L MCV 95 H MCH MCHC RDW Plt Count Lymph % (Auto) [place] % (Auto) Lymph # (Auto) [place] # (Auto) Seg Neutrophils % Seg Neuts % (Manual) Lymphocytes % (Manual) Seg Neutrophils # Seg Neutrophils # Man Lymphocytes # (Manual) PT INR ABG pH ABG pO2 56.0 L ABG HCO3 47.1 H ABG O2 Saturation 93.3 L ABG Base Excess 20.1 H ABG Hemoglobin 8.0 L Oxyhemoglobin 91.8 L Sodium Potassium Chloride 96.2 L Carbon Dioxide 40 H BUN 24 H Creatinine < 0.2 L Glucose 125 H POC Glucose Calcium 8.3 L Phosphorus Magnesium Total Creatine Kinase CK-MB (CK-2) Rel Index Troponin T C-Reactive Protein Total Protein Albumin LDL Cholesterol Direct Urine WBC (Auto) Crossmatch 04/19/22 04/20/22 04/20/22 12:02 00:40 04:49 WBC 14.7 H RBC 3.36 L Hgb 10.3 L Hct 32.0 L MCV 95 H MCH MCHC RDW Plt Count Lymph % (Auto) [place] % (Auto) Lymph # (Auto) [place] # (Auto) Seg Neutrophils % Seg Neuts % (Manual) Lymphocytes % (Manual) Seg Neutrophils # Seg Neutrophils # Man Lymphocytes # (Manual) PT INR ABG pH ABG pO2 ABG HCO3 ABG O2 Saturation ABG Base Excess ABG Hemoglobin Oxyhemoglobin Sodium Potassium Chloride Carbon Dioxide BUN Creatinine Glucose POC Glucose 124 H 140 H Calcium Phosphorus Magnesium Total Creatine Kinase CK-MB (CK-2) Rel Index Troponin T C-Reactive Protein Total Protein Albumin LDL Cholesterol Direct Urine WBC (Auto) Crossmatch 04/20/22 04/20/22 04/21/22 05:36 11:40 04:05 WBC RBC Hgb Hct MCV MCH MCHC RDW Plt Count Lymph % (Auto) [place] % (Auto) Lymph # (Auto) [place] # (Auto) Seg Neutrophils % Seg Neuts % (Manual) Lymphocytes % (Manual) Seg Neutrophils # Seg Neutrophils # Man Lymphocytes # (Manual) PT INR ABG pH ABG pO2 ABG HCO3 ABG O2 Saturation ABG Base Excess ABG Hemoglobin Oxyhemoglobin Sodium Potassium Chloride 93.4 L Carbon Dioxide 40 H BUN 25 H Creatinine < 0.2 L Glucose 122 H POC Glucose 125 H 128 H Calcium Phosphorus Magnesium Total Creatine Kinase CK-MB (CK-2) Rel Index Troponin T C-Reactive Protein Total Protein Albumin LDL Cholesterol Direct Urine WBC (Auto) Crossmatch 04/21/22 04/22/22 04/22/22 10:31 05:03 05:03 WBC 12.6 H 12.7 H RBC 2.83 L 2.96 L Hgb 8.6 L 9.0 L Hct 26.9 L 28.0 L MCV 95 H 95 H MCH MCHC RDW Plt Count Lymph % (Auto) [place] % (Auto) Lymph # (Auto) [place] # (Auto) Seg Neutrophils % Seg Neuts % (Manual) Lymphocytes % (Manual) Seg Neutrophils # Seg Neutrophils # Man Lymphocytes # (Manual) PT INR ABG pH ABG pO2 ABG HCO3 ABG O2 Saturation ABG Base Excess ABG Hemoglobin Oxyhemoglobin Sodium Potassium Chloride 93.9 L Carbon Dioxide 43 H* BUN 23 H Creatinine < 0.2 L Glucose 137 H POC Glucose Calcium Phosphorus Magnesium Total Creatine Kinase CK-MB (CK-2) Rel Index Troponin T C-Reactive Protein Total Protein Albumin LDL Cholesterol Direct Urine WBC (Auto) Crossmatch 04/22/22 04/23/22 04/24/22 08:34 09:40 04:29 WBC 14.4 H RBC 2.74 L Hgb 8.4 L Hct 25.7 L MCV MCH MCHC RDW Plt Count Lymph % (Auto) [place] % (Auto) Lymph # (Auto) [place] # (Auto) Seg Neutrophils % Seg Neuts % (Manual) Lymphocytes % (Manual) Seg Neutrophils # Seg Neutrophils # Man Lymphocytes # (Manual) PT INR ABG pH ABG pO2 54.1 L 56.8 L ABG HCO3 48.5 H 49.0 H ABG O2 Saturation 92.1 L 90.9 L ABG Base Excess 20.9 H 20.8 H ABG Hemoglobin 9.0 L 8.4 L Oxyhemoglobin 90.6 L 89.5 L Sodium Potassium Chloride Carbon Dioxide BUN Creatinine Glucose POC Glucose Calcium Phosphorus Magnesium Total Creatine Kinase CK-MB (CK-2) Rel Index Troponin T C-Reactive Protein Total Protein Albumin LDL Cholesterol Direct Urine WBC (Auto) Crossmatch 04/24/22 04/25/22 04/26/22 04:29 09:00 04:22 WBC RBC 2.88 L Hgb 8.9 L Hct 26.8 L MCV MCH MCHC RDW Plt Count Lymph % (Auto) [place] % (Auto) Lymph # (Auto) [place] # (Auto) Seg Neutrophils % Seg Neuts % (Manual) Lymphocytes % (Manual) Seg Neutrophils # Seg Neutrophils # Man Lymphocytes # (Manual) PT INR ABG pH 7.457 H ABG pO2 66.7 L ABG HCO3 42.6 H ABG O2 Saturation ABG Base Excess 15.3 H ABG Hemoglobin 8.8 L Oxyhemoglobin 94.1 L Sodium Potassium Chloride 90.7 L Carbon Dioxide 40 H BUN Creatinine < 0.2 L Glucose 133 H POC Glucose Calcium Phosphorus Magnesium Total Creatine Kinase CK-MB (CK-2) Rel Index Troponin T C-Reactive Protein Total Protein Albumin LDL Cholesterol Direct Urine WBC (Auto) Crossmatch 04/26/22 04/29/22 04/29/22 04:22 04:18 04:18 WBC 13.5 H RBC 2.96 L Hgb 8.9 L Hct 27.7 L MCV MCH MCHC RDW Plt Count Lymph % (Auto) [place] % (Auto) Lymph # (Auto) [place] # (Auto) Seg Neutrophils % Seg Neuts % (Manual) Lymphocytes % (Manual) Seg Neutrophils # Seg Neutrophils # Man Lymphocytes # (Manual) PT INR ABG pH ABG pO2 ABG HCO3 ABG O2 Saturation ABG Base Excess ABG Hemoglobin Oxyhemoglobin Sodium Potassium Chloride 93.2 L 95.2 L Carbon Dioxide 37 H 38 H BUN Creatinine < 0.2 L < 0.2 L Glucose 114 H 116 H POC Glucose Calcium Phosphorus Magnesium Total Creatine Kinase CK-MB (CK-2) Rel Index Troponin T C-Reactive Protein Total Protein Albumin LDL Cholesterol Direct Urine WBC (Auto) Crossmatch 05/02/22 05/03/22 05/03/22 04:29 04:02 04:02 WBC 12.9 H 12.3 H RBC 2.82 L 2.83 L Hgb 8.4 L 8.4 L Hct 26.2 L 26.0 L MCV MCH MCHC RDW Plt Count Lymph % (Auto) [place] % (Auto) Lymph # (Auto) [place] # (Auto) Seg Neutrophils % Seg Neuts % (Manual) Lymphocytes % (Manual) Seg Neutrophils # Seg Neutrophils # Man Lymphocytes # (Manual) PT INR ABG pH ABG pO2 ABG HCO3 ABG O2 Saturation ABG Base Excess ABG Hemoglobin Oxyhemoglobin Sodium 134 L Potassium Chloride 90.5 L Carbon Dioxide 38 H BUN 21 H Creatinine < 0.2 L Glucose 126 H POC Glucose Calcium Phosphorus Magnesium Total Creatine Kinase CK-MB (CK-2) Rel Index Troponin T C-Reactive Protein Total Protein Albumin LDL Cholesterol Direct Urine WBC (Auto) Crossmatch 05/03/22 05/03/22 05/04/22 12:02 17:42 09:36 WBC RBC Hgb Hct MCV MCH MCHC RDW Plt Count Lymph % (Auto) [place] % (Auto) Lymph # (Auto) [place] # (Auto) Seg Neutrophils % Seg Neuts % (Manual) Lymphocytes % (Manual) Seg Neutrophils # Seg Neutrophils # Man Lymphocytes # (Manual) PT INR ABG pH ABG pO2 55.4 L ABG HCO3 43.7 H ABG O2 Saturation 87.4 L ABG Base Excess 16.1 H ABG Hemoglobin 9.1 L Oxyhemoglobin 85.7 L Sodium Potassium Chloride Carbon Dioxide BUN Creatinine Glucose POC Glucose 139 H 131 H Calcium Phosphorus Magnesium Total Creatine Kinase CK-MB (CK-2) Rel Index Troponin T C-Reactive Protein Total Protein Albumin LDL Cholesterol Direct Urine WBC (Auto) Crossmatch 05/04/22 05/04/22 05/05/22 17:08 23:10 04:23 WBC 14.4 H RBC 2.75 L Hgb 8.2 L Hct 25.2 L MCV MCH MCHC RDW Plt Count Lymph % (Auto) [place] % (Auto) Lymph # (Auto) [place] # (Auto) Seg Neutrophils % Seg Neuts % (Manual) Lymphocytes % (Manual) Seg Neutrophils # Seg Neutrophils # Man Lymphocytes # (Manual) PT INR ABG pH ABG pO2 ABG HCO3 ABG O2 Saturation ABG Base Excess ABG Hemoglobin Oxyhemoglobin Sodium Potassium Chloride Carbon Dioxide BUN Creatinine Glucose POC Glucose 124 H 115 H Calcium Phosphorus Magnesium Total Creatine Kinase CK-MB (CK-2) Rel Index Troponin T C-Reactive Protein Total Protein Albumin LDL Cholesterol Direct Urine WBC (Auto) Crossmatch 05/05/22 05/05/22 05/06/22 04:23 21:39 05:13 WBC RBC Hgb Hct MCV MCH MCHC RDW Plt Count Lymph % (Auto) [place] % (Auto) Lymph # (Auto) [place] # (Auto) Seg Neutrophils % Seg Neuts % (Manual) Lymphocytes % (Manual) Seg Neutrophils # Seg Neutrophils # Man Lymphocytes # (Manual) PT INR ABG pH ABG pO2 ABG HCO3 ABG O2 Saturation ABG Base Excess ABG Hemoglobin Oxyhemoglobin Sodium Potassium Chloride 91.3 L Carbon Dioxide 38 H BUN 23 H Creatinine < 0.2 L Glucose 128 H POC Glucose 141 H 136 H Calcium Phosphorus Magnesium Total Creatine Kinase CK-MB (CK-2) Rel Index Troponin T C-Reactive Protein Total Protein Albumin LDL Cholesterol Direct Urine WBC (Auto) Crossmatch 05/07/22 05/07/22 05/08/22 05:29 22:15 05:48 WBC RBC Hgb Hct MCV MCH MCHC RDW Plt Count Lymph % (Auto) [place] % (Auto) Lymph # (Auto) [place] # (Auto) Seg Neutrophils % Seg Neuts % (Manual) Lymphocytes % (Manual) Seg Neutrophils # Seg Neutrophils # Man Lymphocytes # (Manual) PT INR ABG pH ABG pO2 ABG HCO3 ABG O2 Saturation ABG Base Excess ABG Hemoglobin Oxyhemoglobin Sodium Potassium Chloride Carbon Dioxide BUN Creatinine Glucose POC Glucose 125 H 142 H 122 H Calcium Phosphorus Magnesium Total Creatine Kinase CK-MB (CK-2) Rel Index Troponin T C-Reactive Protein Total Protein Albumin LDL Cholesterol Direct Urine WBC (Auto) Crossmatch 05/08/22 05/08/22 05/09/22 14:04 21:48 15:15 WBC RBC 2.61 L Hgb 7.7 L Hct 23.2 L MCV MCH MCHC RDW Plt Count Lymph % (Auto) 8.1 L [place] % (Auto) Lymph # (Auto) 0.9 L [place] # (Auto) Seg Neutrophils % 86.1 H Seg Neuts % (Manual) Lymphocytes % (Manual) Seg Neutrophils # 9.2 H Seg Neutrophils # Man Lymphocytes # (Manual) PT INR ABG pH ABG pO2 ABG HCO3 ABG O2 Saturation ABG Base Excess ABG Hemoglobin Oxyhemoglobin Sodium Potassium Chloride Carbon Dioxide BUN Creatinine Glucose POC Glucose 112 H 107 H Calcium Phosphorus Magnesium Total Creatine Kinase CK-MB (CK-2) Rel Index Troponin T C-Reactive Protein Total Protein Albumin LDL Cholesterol Direct Urine WBC (Auto) Crossmatch 05/09/22 05/09/22 05/09/22 15:15 15:39 21:15 WBC RBC Hgb Hct MCV MCH MCHC RDW Plt Count Lymph % (Auto) [place] % (Auto) Lymph # (Auto) [place] # (Auto) Seg Neutrophils % Seg Neuts % (Manual) Lymphocytes % (Manual) Seg Neutrophils # Seg Neutrophils # Man Lymphocytes # (Manual) PT INR ABG pH ABG pO2 ABG HCO3 ABG O2 Saturation ABG Base Excess ABG Hemoglobin Oxyhemoglobin Sodium Potassium Chloride 92.9 L Carbon Dioxide 40 H BUN Creatinine < 0.2 L Glucose 141 H POC Glucose 118 H 112 H Calcium Phosphorus Magnesium Total Creatine Kinase CK-MB (CK-2) Rel Index Troponin T C-Reactive Protein Total Protein Albumin LDL Cholesterol Direct Urine WBC (Auto) Crossmatch 05/10/22 05/12/22 05/13/22 15:14 00:25 04:02 WBC 13.3 H RBC 3.14 L Hgb 8.7 L Hct 28.0 L MCV MCH MCHC 31 L RDW Plt Count Lymph % (Auto) [place] % (Auto) Lymph # (Auto) [place] # (Auto) Seg Neutrophils % Seg Neuts % (Manual) Lymphocytes % (Manual) Seg Neutrophils # Seg Neutrophils # Man Lymphocytes # (Manual) PT INR ABG pH ABG pO2 ABG HCO3 ABG O2 Saturation ABG Base Excess ABG Hemoglobin Oxyhemoglobin Sodium Potassium Chloride Carbon Dioxide BUN Creatinine Glucose POC Glucose 113 H 158 H Calcium Phosphorus Magnesium Total Creatine Kinase CK-MB (CK-2) Rel Index Troponin T C-Reactive Protein Total Protein Albumin LDL Cholesterol Direct Urine WBC (Auto) Crossmatch 05/13/22 05/13/22 05/13/22 04:02 06:32 13:09 WBC RBC Hgb Hct MCV MCH MCHC RDW Plt Count Lymph % (Auto) [place] % (Auto) Lymph # (Auto) [place] # (Auto) Seg Neutrophils % Seg Neuts % (Manual) Lymphocytes % (Manual) Seg Neutrophils # Seg Neutrophils # Man Lymphocytes # (Manual) PT INR ABG pH ABG pO2 ABG HCO3 ABG O2 Saturation ABG Base Excess ABG Hemoglobin Oxyhemoglobin Sodium 135 L Potassium Chloride 91.1 L Carbon Dioxide 40 H BUN 23 H Creatinine < 0.2 L Glucose 139 H POC Glucose 129 H 117 H Calcium Phosphorus Magnesium Total Creatine Kinase CK-MB (CK-2) Rel Index Troponin T C-Reactive Protein Total Protein Albumin LDL Cholesterol Direct Urine WBC (Auto) Crossmatch 05/13/22 05/14/22 05/14/22 21:28 05:44 07:35 WBC RBC Hgb Hct MCV MCH MCHC RDW Plt Count Lymph % (Auto) [place] % (Auto) Lymph # (Auto) [place] # (Auto) Seg Neutrophils % Seg Neuts % (Manual) Lymphocytes % (Manual) Seg Neutrophils # Seg Neutrophils # Man Lymphocytes # (Manual) PT INR ABG pH ABG pO2 ABG HCO3 ABG O2 Saturation ABG Base Excess ABG Hemoglobin Oxyhemoglobin Sodium Potassium Chloride Carbon Dioxide BUN Creatinine Glucose POC Glucose 109 H 130 H 125 H Calcium Phosphorus Magnesium Total Creatine Kinase CK-MB (CK-2) Rel Index Troponin T C-Reactive Protein Total Protein Albumin LDL Cholesterol Direct Urine WBC (Auto) Crossmatch 05/14/22 05/14/22 05/15/22 16:26 23:44 10:44 WBC 13.9 H RBC 2.71 L Hgb 7.5 L Hct 23.5 L MCV MCH MCHC RDW 15.9 H Plt Count Lymph % (Auto) [place] % (Auto) Lymph # (Auto) [place] # (Auto) Seg Neutrophils % Seg Neuts % (Manual) Lymphocytes % (Manual) Seg Neutrophils # Seg Neutrophils # Man Lymphocytes # (Manual) PT INR ABG pH ABG pO2 ABG HCO3 ABG O2 Saturation ABG Base Excess ABG Hemoglobin Oxyhemoglobin Sodium Potassium Chloride Carbon Dioxide BUN Creatinine Glucose POC Glucose 112 H 189 H Calcium Phosphorus Magnesium Total Creatine Kinase CK-MB (CK-2) Rel Index Troponin T C-Reactive Protein Total Protein Albumin LDL Cholesterol Direct Urine WBC (Auto) Crossmatch 05/15/22 05/16/22 05/16/22 10:44 14:50 21:36 WBC RBC Hgb Hct MCV MCH MCHC RDW Plt Count Lymph % (Auto) [place] % (Auto) Lymph # (Auto) [place] # (Auto) Seg Neutrophils % Seg Neuts % (Manual) Lymphocytes % (Manual) Seg Neutrophils # Seg Neutrophils # Man Lymphocytes # (Manual) PT INR ABG pH ABG pO2 ABG HCO3 ABG O2 Saturation ABG Base Excess ABG Hemoglobin Oxyhemoglobin Sodium 135 L Potassium 3.3 L D Chloride 91.5 L Carbon Dioxide 33 H D BUN 21 H Creatinine < 0.2 L Glucose 118 H POC Glucose 133 H 123 H Calcium 7.9 L Phosphorus Magnesium Total Creatine Kinase CK-MB (CK-2) Rel Index Troponin T C-Reactive Protein Total Protein Albumin LDL Cholesterol Direct Urine WBC (Auto) Crossmatch 05/17/22 05/17/22 05/17/22 03:41 03:41 05:51 WBC 16.2 H RBC 2.53 L Hgb 7.0 L Hct 21.5 L MCV MCH MCHC RDW 16.2 H Plt Count Lymph % (Auto) [place] % (Auto) Lymph # (Auto) [place] # (Auto) Seg Neutrophils % Seg Neuts % (Manual) 96.0 H Lymphocytes % (Manual) 1.0 L Seg Neutrophils # Seg Neutrophils # Man 15.6 H Lymphocytes # (Manual) 0.2 L PT INR ABG pH ABG pO2 ABG HCO3 ABG O2 Saturation ABG Base Excess ABG Hemoglobin Oxyhemoglobin Sodium 132 L Potassium Chloride 95.0 L Carbon Dioxide BUN 22 H Creatinine < 0.2 L Glucose 122 H POC Glucose 123 H Calcium Phosphorus Magnesium Total Creatine Kinase CK-MB (CK-2) Rel Index Troponin T C-Reactive Protein 31.20 H Total Protein Albumin LDL Cholesterol Direct Urine WBC (Auto) Crossmatch 05/17/22 05/17/22 05/18/22 07:53 21:03 05:41 WBC 15.0 H RBC 2.58 L Hgb 7.1 L Hct 22.3 L MCV MCH MCHC RDW 16.1 H Plt Count Lymph % (Auto) [place] % (Auto) Lymph # (Auto) [place] # (Auto) Seg Neutrophils % Seg Neuts % (Manual) Lymphocytes % (Manual) Seg Neutrophils # Seg Neutrophils # Man Lymphocytes # (Manual) PT INR ABG pH ABG pO2 ABG HCO3 ABG O2 Saturation ABG Base Excess ABG Hemoglobin Oxyhemoglobin Sodium Potassium Chloride Carbon Dioxide BUN Creatinine Glucose POC Glucose 106 H 123 H Calcium Phosphorus Magnesium Total Creatine Kinase CK-MB (CK-2) Rel Index Troponin T C-Reactive Protein Total Protein Albumin LDL Cholesterol Direct Urine WBC (Auto) Crossmatch 05/18/22 05/18/22 05/18/22 05:41 13:56 21:08 WBC RBC Hgb Hct MCV MCH MCHC RDW Plt Count Lymph % (Auto) [place] % (Auto) Lymph # (Auto) [place] # (Auto) Seg Neutrophils % Seg Neuts % (Manual) Lymphocytes % (Manual) Seg Neutrophils # Seg Neutrophils # Man Lymphocytes # (Manual) PT INR ABG pH ABG pO2 ABG HCO3 ABG O2 Saturation ABG Base Excess ABG Hemoglobin Oxyhemoglobin Sodium Potassium Chloride 97.9 L Carbon Dioxide BUN 23 H Creatinine < 0.2 L Glucose 128 H POC Glucose 137 H Calcium Phosphorus Magnesium Total Creatine Kinase CK-MB (CK-2) Rel Index Troponin T C-Reactive Protein Total Protein Albumin LDL Cholesterol Direct Urine WBC (Auto) Crossmatch See Detail 05/18/22 05/19/22 05/20/22 23:21 06:10 00:43 WBC 13.5 H RBC 2.53 L Hgb 7.2 L Hct 21.5 L MCV MCH MCHC RDW 16.4 H Plt Count Lymph % (Auto) [place] % (Auto) Lymph # (Auto) [place] # (Auto) Seg Neutrophils % Seg Neuts % (Manual) Lymphocytes % (Manual) Seg Neutrophils # Seg Neutrophils # Man Lymphocytes # (Manual) PT INR ABG pH ABG pO2 70.5 L ABG HCO3 30.3 H ABG O2 Saturation ABG Base Excess 4.9 H ABG Hemoglobin 5.9 L Oxyhemoglobin Sodium Potassium Chloride Carbon Dioxide BUN Creatinine Glucose POC Glucose 151 H Calcium Phosphorus Magnesium Total Creatine Kinase CK-MB (CK-2) Rel Index Troponin T C-Reactive Protein Total Protein Albumin LDL Cholesterol Direct Urine WBC (Auto) Crossmatch 05/20/22 05/20/22 05/20/22 04:40 04:40 07:08 WBC 13.3 H RBC 2.57 L Hgb 7.1 L Hct 22.2 L MCV MCH MCHC RDW 16.3 H Plt Count Lymph % (Auto) [place] % (Auto) Lymph # (Auto) [place] # (Auto) Seg Neutrophils % Seg Neuts % (Manual) Lymphocytes % (Manual) Seg Neutrophils # Seg Neutrophils # Man Lymphocytes # (Manual) PT INR ABG pH ABG pO2 ABG HCO3 ABG O2 Saturation ABG Base Excess ABG Hemoglobin Oxyhemoglobin Sodium 134 L Potassium Chloride Carbon Dioxide BUN Creatinine < 0.2 L Glucose 170 H POC Glucose 174 H Calcium 8.1 L Phosphorus Magnesium Total Creatine Kinase CK-MB (CK-2) Rel Index Troponin T C-Reactive Protein Total Protein Albumin LDL Cholesterol Direct Urine WBC (Auto) Crossmatch 05/20/22 05/21/22 05/21/22 15:08 05:13 22:07 WBC RBC Hgb Hct MCV MCH MCHC RDW Plt Count Lymph % (Auto) [place] % (Auto) Lymph # (Auto) [place] # (Auto) Seg Neutrophils % Seg Neuts % (Manual) Lymphocytes % (Manual) Seg Neutrophils # Seg Neutrophils # Man Lymphocytes # (Manual) PT INR ABG pH ABG pO2 ABG HCO3 ABG O2 Saturation ABG Base Excess ABG Hemoglobin Oxyhemoglobin Sodium Potassium Chloride Carbon Dioxide BUN Creatinine Glucose POC Glucose 114 H 149 H 113 H Calcium Phosphorus Magnesium Total Creatine Kinase CK-MB (CK-2) Rel Index Troponin T C-Reactive Protein Total Protein Albumin LDL Cholesterol Direct Urine WBC (Auto) Crossmatch 05/22/22 05/22/22 05/22/22 05:49 05:49 07:43 WBC RBC 3.05 L Hgb 8.6 L Hct 26.2 L MCV MCH MCHC RDW 16.8 H Plt Count Lymph % (Auto) [place] % (Auto) Lymph # (Auto) [place] # (Auto) Seg Neutrophils % Seg Neuts % (Manual) Lymphocytes % (Manual) Seg Neutrophils # Seg Neutrophils # Man Lymphocytes # (Manual) PT INR ABG pH ABG pO2 ABG HCO3 ABG O2 Saturation ABG Base Excess ABG Hemoglobin Oxyhemoglobin Sodium 131 L Potassium Chloride 93.3 L Carbon Dioxide 32 H BUN Creatinine < 0.2 L Glucose 148 H POC Glucose 145 H Calcium 8.2 L Phosphorus Magnesium Total Creatine Kinase CK-MB (CK-2) Rel Index Troponin T C-Reactive Protein Total Protein Albumin LDL Cholesterol Direct Urine WBC (Auto) Crossmatch 05/22/22 05/22/22 05/23/22 14:09 22:06 07:57 WBC RBC Hgb Hct MCV MCH MCHC RDW Plt Count Lymph % (Auto) [place] % (Auto) Lymph # (Auto) [place] # (Auto) Seg Neutrophils % Seg Neuts % (Manual) Lymphocytes % (Manual) Seg Neutrophils # Seg Neutrophils # Man Lymphocytes # (Manual) PT INR ABG pH ABG pO2 ABG HCO3 ABG O2 Saturation ABG Base Excess ABG Hemoglobin Oxyhemoglobin Sodium Potassium Chloride Carbon Dioxide BUN Creatinine Glucose POC Glucose 136 H 129 H 137 H Calcium Phosphorus Magnesium Total Creatine Kinase CK-MB (CK-2) Rel Index Troponin T C-Reactive Protein Total Protein Albumin LDL Cholesterol Direct Urine WBC (Auto) Crossmatch 05/23/22 05/23/22 05/24/22 14:13 21:29 04:22 WBC RBC 2.89 L Hgb 7.9 L Hct 24.9 L MCV MCH MCHC RDW 17.0 H Plt Count Lymph % (Auto) [place] % (Auto) Lymph # (Auto) [place] # (Auto) Seg Neutrophils % Seg Neuts % (Manual) Lymphocytes % (Manual) Seg Neutrophils # Seg Neutrophils # Man Lymphocytes # (Manual) PT INR ABG pH ABG pO2 ABG HCO3 ABG O2 Saturation ABG Base Excess ABG Hemoglobin Oxyhemoglobin Sodium Potassium Chloride Carbon Dioxide BUN Creatinine Glucose POC Glucose 135 H 132 H Calcium Phosphorus Magnesium Total Creatine Kinase CK-MB (CK-2) Rel Index Troponin T C-Reactive Protein Total Protein Albumin LDL Cholesterol Direct Urine WBC (Auto) Crossmatch 05/24/22 05/24/22 05/24/22 04:22 06:41 12:12 WBC RBC Hgb Hct MCV MCH MCHC RDW Plt Count Lymph % (Auto) [place] % (Auto) Lymph # (Auto) [place] # (Auto) Seg Neutrophils % Seg Neuts % (Manual) Lymphocytes % (Manual) Seg Neutrophils # Seg Neutrophils # Man Lymphocytes # (Manual) PT INR ABG pH ABG pO2 ABG HCO3 ABG O2 Saturation ABG Base Excess ABG Hemoglobin Oxyhemoglobin Sodium 133 L Potassium 5.1 H Chloride 93.7 L Carbon Dioxide 33 H BUN Creatinine < 0.2 L Glucose 144 H POC Glucose 140 H 130 H Calcium 8.3 L Phosphorus Magnesium Total Creatine Kinase CK-MB (CK-2) Rel Index Troponin T C-Reactive Protein Total Protein Albumin LDL Cholesterol Direct Urine WBC (Auto) Crossmatch 05/24/22 05/25/22 05/25/22 21:24 00:44 05:41 WBC RBC Hgb Hct MCV MCH MCHC RDW Plt Count Lymph % (Auto) [place] % (Auto) Lymph # (Auto) [place] # (Auto) Seg Neutrophils % Seg Neuts % (Manual) Lymphocytes % (Manual) Seg Neutrophils # Seg Neutrophils # Man Lymphocytes # (Manual) PT INR ABG pH ABG pO2 ABG HCO3 ABG O2 Saturation ABG Base Excess ABG Hemoglobin Oxyhemoglobin Sodium Potassium Chloride 94.8 L Carbon Dioxide 35 H BUN Creatinine < 0.2 L Glucose 146 H POC Glucose 141 H 142 H Calcium Phosphorus Magnesium Total Creatine Kinase CK-MB (CK-2) Rel Index Troponin T C-Reactive Protein Total Protein Albumin LDL Cholesterol Direct Urine WBC (Auto) Crossmatch 05/25/22 05/25/22 05/26/22 13:51 14:46 00:31 WBC RBC 2.87 L 2.82 L Hgb 7.8 L 7.6 L Hct 24.4 L 23.9 L MCV MCH 27 L 27 L MCHC RDW 17.1 H 17.4 H Plt Count Lymph % (Auto) 11.9 L [place] % (Auto) Lymph # (Auto) [place] # (Auto) Seg Neutrophils % 81.2 H Seg Neuts % (Manual) Lymphocytes % (Manual) Seg Neutrophils # 8.4 H Seg Neutrophils # Man Lymphocytes # (Manual) PT INR ABG pH ABG pO2 ABG HCO3 ABG O2 Saturation ABG Base Excess ABG Hemoglobin Oxyhemoglobin Sodium Potassium Chloride Carbon Dioxide BUN Creatinine Glucose POC Glucose 139 H Calcium Phosphorus Magnesium Total Creatine Kinase CK-MB (CK-2) Rel Index Troponin T C-Reactive Protein Total Protein Albumin LDL Cholesterol Direct Urine WBC (Auto) Crossmatch 05/26/22 05/26/22 05/26/22 00:31 05:02 20:28 WBC RBC Hgb Hct MCV MCH MCHC RDW Plt Count Lymph % (Auto) [place] % (Auto) Lymph # (Auto) [place] # (Auto) Seg Neutrophils % Seg Neuts % (Manual) Lymphocytes % (Manual) Seg Neutrophils # Seg Neutrophils # Man Lymphocytes # (Manual) PT INR ABG pH ABG pO2 ABG HCO3 ABG O2 Saturation ABG Base Excess ABG Hemoglobin Oxyhemoglobin Sodium 134 L Potassium Chloride 92.4 L Carbon Dioxide 37 H BUN Creatinine < 0.2 L Glucose 140 H POC Glucose 111 H 161 H Calcium 8.2 L Phosphorus Magnesium Total Creatine Kinase CK-MB (CK-2) Rel Index Troponin T C-Reactive Protein Total Protein Albumin LDL Cholesterol Direct Urine WBC (Auto) Crossmatch 05/27/22 05/27/22 05/27/22 05:56 16:32 23:17 WBC RBC Hgb Hct MCV MCH MCHC RDW Plt Count Lymph % (Auto) [place] % (Auto) Lymph # (Auto) [place] # (Auto) Seg Neutrophils % Seg Neuts % (Manual) Lymphocytes % (Manual) Seg Neutrophils # Seg Neutrophils # Man Lymphocytes # (Manual) PT INR ABG pH ABG pO2 ABG HCO3 ABG O2 Saturation ABG Base Excess ABG Hemoglobin Oxyhemoglobin Sodium Potassium Chloride Carbon Dioxide BUN Creatinine Glucose POC Glucose 135 H 138 H 124 H Calcium Phosphorus Magnesium Total Creatine Kinase CK-MB (CK-2) Rel Index Troponin T C-Reactive Protein Total Protein Albumin LDL Cholesterol Direct Urine WBC (Auto) Crossmatch 05/28/22 05/28/22 05/28/22 04:20 04:20 07:26 WBC RBC 2.82 L Hgb 7.6 L Hct 23.6 L MCV MCH 27 L MCHC RDW 17.3 H Plt Count Lymph % (Auto) [place] % (Auto) Lymph # (Auto) [place] # (Auto) Seg Neutrophils % Seg Neuts % (Manual) Lymphocytes % (Manual) Seg Neutrophils # Seg Neutrophils # Man Lymphocytes # (Manual) PT INR ABG pH ABG pO2 ABG HCO3 ABG O2 Saturation ABG Base Excess ABG Hemoglobin Oxyhemoglobin Sodium 135 L Potassium Chloride 94.4 L Carbon Dioxide 35 H BUN Creatinine < 0.2 L Glucose 130 H POC Glucose 124 H Calcium 8.0 L Phosphorus Magnesium Total Creatine Kinase CK-MB (CK-2) Rel Index Troponin T C-Reactive Protein Total Protein Albumin LDL Cholesterol Direct Urine WBC (Auto) Crossmatch 05/28/22 05/28/22 05/29/22 16:20 21:19 13:29 WBC RBC Hgb Hct MCV MCH MCHC RDW Plt Count Lymph % (Auto) [place] % (Auto) Lymph # (Auto) [place] # (Auto) Seg Neutrophils % Seg Neuts % (Manual) Lymphocytes % (Manual) Seg Neutrophils # Seg Neutrophils # Man Lymphocytes # (Manual) PT INR ABG pH ABG pO2 ABG HCO3 ABG O2 Saturation ABG Base Excess ABG Hemoglobin Oxyhemoglobin Sodium Potassium Chloride Carbon Dioxide BUN Creatinine Glucose POC Glucose 138 H 120 H 137 H Calcium Phosphorus Magnesium Total Creatine Kinase CK-MB (CK-2) Rel Index Troponin T C-Reactive Protein Total Protein Albumin LDL Cholesterol Direct Urine WBC (Auto) Crossmatch 05/29/22 05/30/22 23:32 05:54 WBC RBC Hgb Hct MCV MCH MCHC RDW Plt Count Lymph % (Auto) [place] % (Auto) Lymph # (Auto) [place] # (Auto) Seg Neutrophils % Seg Neuts % (Manual) Lymphocytes % (Manual) Seg Neutrophils # Seg Neutrophils # Man Lymphocytes # (Manual) PT INR ABG pH ABG pO2 ABG HCO3 ABG O2 Saturation ABG Base Excess ABG Hemoglobin Oxyhemoglobin Sodium Potassium Chloride Carbon Dioxide BUN Creatinine Glucose POC Glucose 109 H 128 H Calcium Phosphorus Magnesium Total Creatine Kinase CK-MB (CK-2) Rel Index Troponin T C-Reactive Protein Total Protein Albumin LDL Cholesterol Direct Urine WBC (Auto) Crossmatch Allied health notes reviewed: nursing
[2022-05-30] MEDS: SENNOSIDES ORAL LIQD 8.8 MG/5 ML ORAL LIQD FEEDTUBE SCH (21:06)
[2022-05-31] MEDS: AVIBACTAM IV SCH ×3 (01:55→17:44)
[2022-05-31] MEDS: CEFTAZIDIME IV SCH ×3 (01:55→17:44)
[2022-05-31] MEDS: SODIUM CHLORIDE 0.9% IV SCH ×3 (01:55→17:44)
[2022-05-31 05:14] LABS: Hematocrit 21.4 % (35.5-45.6); Hemoglobin 6.9 gm/dl (11.8-15.2); Mean Corpuscular HGB Conc 32 % (32-34); Mean Corpuscular Volume 83 fl (84-94); Platelet Count 361 K/mm3 (140-440); Red Blood Count 2.58 M/mm3 (3.65-5.03); Red Cell Distribution Width 17.6 % (13.2-15.2)
[2022-05-31 05:31] LABS: Blood Urea Nitrogen 16 mg/dL (9-20); Calcium 7.9 mg/dL (8.4-10.2); Hemolysis Index 0
[2022-05-31 05:32] LABS: BUN/Creatinine Ratio 80
[2022-05-31] MEDS: HEPARIN 5,000 UNIT/1 ML VIAL SUB-Q SCH ×3 (06:11→22:38)
[2022-05-31] MEDS: INSULIN LISPRO 100 UNIT/ML SUB-Q SCH ×3 (06:13→22:46)
[2022-05-31] MEDS ORDERED: SODIUM CHLORIDE 0.9% 500 ML 500 ML IV NR (08:05)
[2022-05-31] MEDS: ALBUTEROL 2.5 MG/3 ML NEBU IH SCH ×2 (08:23→20:35)
[2022-05-31] MEDS: BACLOFEN 10 MG TAB PO SCH ×3 (08:29→19:55)
[2022-05-31] MEDS: fentaNYL 100 MCG/2 ML INJ IV PRN ×2 (08:43→19:54)
[2022-05-31] MEDS: POLYETHYLENE GLYCOL 3350 17 GM POWDER FEEDTUBE SCH (09:39)
[2022-05-31] MEDS: DOCUSATE SODIUM 100 MG/10 ML ORAL LIQD FEEDTUBE SCH ×2 (09:39→22:38)
[2022-05-31] MEDS: FAMOTIDINE 20 MG TAB FEEDTUBE SCH ×2 (09:39→22:38)
[2022-05-31] MEDS: QUEtiapine 100 MG TAB FEEDTUBE SCH ×2 (09:39→22:38)
[2022-05-31] MEDS: METOPROLOL TARTRATE 25 MG TAB FEEDTUBE SCH ×2 (09:46→22:39)
--- NOTE | 2022-05-31 13:35 | Progress Note ---
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 Protein calorie malnutrition Acute Bronchopneumonia HCAP Hypotension NSTEMI Hypernatremia Acute Metabolic Encephalopathy H/O Amyotrophic Lateral Sclerosis Nonverbal at Baseline Thrombocytopenia Protein Caloric Malnutrition Constipation - place back on home ventilator and troubleshoot - get CXR to evaluate for atelectasis - continue care as below otherwise; - continue to wean supplemental oxygen for target O2 sat's > 90% acutely - continue Avycaz, de-escalate per ID recommendations (10 days) - continue wound care per RN/WCN/Surgeon - discharge planning ongoing concurrently - continue daily SAT and SBT assessment as tolerated while in hospital - continue to optimize nutritional status - bronchoscopy if develops large volume atelectasis - continue mucomyst nebs for thick tenacious secretions - continue scheduled CPT - continue Seroquel for anxiolysis / delirium - continue bronchodilators with pulmonary hygiene per RT - VAP bundle addressed - continue lung protective strategies - wean per pulmonary driven protocols otherwise - continue accuchecks with glycemic control per SSI (While critically ill target blood glucose of 140-180 mg/dL; avoid hypoglycemia) - sedation prn for target RASS 0 to -1 - avoid nephrotoxins, renally dose all medications - continue to avoid benzodiazepine's, reduce the possibility of delirium - AB's per ID rec's - prn analgesia per CPOT score - Maintenance of sleep-wake cycle, avoid delirium - continue enteral nutritional support at goal rate as tolerated - G.I. & VTE prophylaxis - PT/OT/ROM exercises - continue mobility protocols for pressure ulcer prophylaxis - Monitor hemodynamics closely - continue other care per attending / other consultants - discharge planning ongoing concurrently COVID SPECIFIC INTERVENTIONS - test negative .... Re-evaluate in am & prn CONDITION: CRITICAL PROGNOSIS: GUARDED CODE STATUS: FULL CODE The high probability of a clinically significant, sudden or life-threatening deterioration of the [respiratory, cardiovascular & neurologic] system(s) required my full and direct attention, intervention and personal management. The aggregate critical care time was [32] minutes without overlap. Time includes spent on; [x] Data Review and interpretation [x] Patient assessment and monitoring of vital signs [x] Documentation [x] Medication orders and management Subjective Date of service: 05/31/22 Principal diagnosis: Ac and ch hypercapnic and hypoxemic Resp Failure; ALS; HCAP; Sepsis; NSTEMI Interval history: Patient is seen today for: Acute and chronic hypercapnic and hypoxemic Respiratory Failure; ALS; HCAP; Sepsis; NSTEMI; AMS; Hypernatremia; Thrombocytopenia; Protein Caloric Malnutrition; Constipation Seen and examined at bedside; 24hour events reviewed; nursing and respiratory care staff consulted; no adverse overnight events reported to me; resting peacefully in bed; remains on MVS but was switched off home ventilator this am due to increased work of breathing; no N/V/F/C Objective Vital Signs - 12hr 05/31/22 05/31/22 05/31/22 02:00 03:00 04:00 Temperature 98.9 F Pulse Rate 92 H 84 85 Pulse Rate [ Bilateral Throughout] Respiratory 12 13 16 Rate Respiratory Rate [Bilateral Throughout] Blood Pressure 108/67 95/62 105/71 O2 Sat by Pulse 99 96 100 Oximetry O2 Sat by Pulse Oximetry [ Assessment] 05/31/22 05/31/22 05/31/22 04:17 05:00 06:00 Temperature Pulse Rate 84 102 H Pulse Rate [ Bilateral Throughout] Respiratory 13 17 Rate Respiratory Rate [Bilateral Throughout] Blood Pressure 105/71 95/63 104/61 O2 Sat by Pulse 100 100 99 Oximetry O2 Sat by Pulse Oximetry [ Assessment] 05/31/22 05/31/22 05/31/22 07:00 07:12 08:00 Temperature 98.9 F 98.9 F Pulse Rate 94 H 101 H Pulse Rate [ Bilateral Throughout] Respiratory 17 16 Rate Respiratory Rate [Bilateral Throughout] Blood Pressure 101/63 107/73 O2 Sat by Pulse 98 Oximetry O2 Sat by Pulse Oximetry [ Assessment] 05/31/22 05/31/22 05/31/22 08:16 08:23 08:30 Temperature Pulse Rate 103 H Pulse Rate [ 98 H Bilateral Throughout] Respiratory Rate Respiratory 16 Rate [Bilateral Throughout] Blood Pressure 107/76 O2 Sat by Pulse 97 Oximetry O2 Sat by Pulse 98 Oximetry [ Assessment] 05/31/22 05/31/22 05/31/22 09:00 09:46 10:00 Temperature Pulse Rate 99 H Pulse Rate [ Bilateral Throughout] Respiratory 19 10 L Rate Respiratory Rate [Bilateral Throughout] Blood Pressure 111/67 111/67 96/64 O2 Sat by Pulse 94 93 Oximetry O2 Sat by Pulse Oximetry [ Assessment] 05/31/22 05/31/22 05/31/22 10:39 10:54 11:00 Temperature 97.9 F 97.7 F Pulse Rate 94 H 100 H 101 H Pulse Rate [ Bilateral Throughout] Respiratory 16 16 17 Rate Respiratory Rate [Bilateral Throughout] Blood Pressure 96/64 103/66 106/65 O2 Sat by Pulse 95 93 90 Oximetry O2 Sat by Pulse Oximetry [ Assessment] 05/31/22 05/31/22 11:36 12:35 Temperature 97.6 F Pulse Rate 100 H Pulse Rate [ Bilateral Throughout] Respiratory Rate Respiratory Rate [Bilateral Throughout] Blood Pressure 106/65 O2 Sat by Pulse 98 Oximetry O2 Sat by Pulse Oximetry [ Assessment] Constitutional: no acute distress, alert, other (resting in bed with normal respiratory effort at rest) Eyes: non-icteric ENT: oropharynx moist, other (+ midline tracheostomy to home vent) Neck: supple, no lymphadenopathy, no JVD Effort: mildly labored Ascultation: Bilateral: diminished breath sounds (bases), rhonchi Percussion: Bilateral: not dull Cardiovascular: regular rate and rhythm, other (S1,S2) Gastrointestinal: normoactive bowel sounds, soft, non-tender, non-distended Integumentary: normal, decubitus ulcer (see wound care pictures- wound vac) Extremities: no cyanosis, no edema, pink and warm, pulses normal Neurologic: pupils equal and round, other (functional quadriplegia) Psychiatric: mood appropriate, affect normal CBC and BMP: 06/01/22 04:14 05/31/22 04:55 ABG, PT/INR, D-dimer: ABG ABG pH 7.385 pH Units (7.350-7.450) 05/19/22 06:10 ABG pCO2 51.9 mm Hg 05/19/22 06:10 ABG pO2 70.5 mm Hg (80.0-90.0) L 05/19/22 06:10 ABG O2 Saturation 97.6 % (95.0-99.0) 05/19/22 06:10 PT/INR, D-dimer PT 13.6 Sec. (12.2-14.9) 04/13/22 04:30 INR 0.94 (0.87-1.13) 04/13/22 04:30 Abnormal lab findings: Abnormal Labs 04/02/22 04/02/22 04/02/22 19:39 19:39 19:39 WBC 14.3 H RBC Hgb Hct MCV 96 H MCH MCHC RDW Plt Count 104 L Lymph % (Auto) [place] % (Auto) Lymph # (Auto) [place] # (Auto) Seg Neutrophils % Seg Neuts % (Manual) 94.0 H Lymphocytes % (Manual) 1.0 L Seg Neutrophils # Seg Neutrophils # Man 13.4 H Lymphocytes # (Manual) 0.1 L PT 15.9 H INR 1.14 H ABG pH ABG pO2 ABG HCO3 ABG O2 Saturation ABG Base Excess ABG Hemoglobin Oxyhemoglobin Sodium 151 H Potassium Chloride Carbon Dioxide BUN Creatinine 0.5 L Glucose POC Glucose Calcium 8.2 L Phosphorus Magnesium 1.60 L Total Creatine Kinase CK-MB (CK-2) Rel Index Troponin T 0.048 H C-Reactive Protein Total Protein 4.6 L Albumin 2.7 L LDL Cholesterol Direct 27 L Urine WBC (Auto) Crossmatch 04/02/22 04/03/22 04/03/22 19:42 05:14 06:30 WBC RBC Hgb Hct MCV MCH MCHC RDW Plt Count Lymph % (Auto) [place] % (Auto) Lymph # (Auto) [place] # (Auto) Seg Neutrophils % Seg Neuts % (Manual) Lymphocytes % (Manual) Seg Neutrophils # Seg Neutrophils # Man Lymphocytes # (Manual) PT INR ABG pH 7.471 H 7.496 H ABG pO2 47.8 L 91.0 H ABG HCO3 30.6 H ABG O2 Saturation 94.4 L ABG Base Excess 6.2 H ABG Hemoglobin 11.0 L 12.8 L Oxyhemoglobin 93.1 L Sodium 149 H Potassium 3.4 L Chloride Carbon Dioxide BUN Creatinine 0.4 L Glucose POC Glucose Calcium Phosphorus Magnesium Total Creatine Kinase CK-MB (CK-2) Rel Index Troponin T C-Reactive Protein Total Protein Albumin LDL Cholesterol Direct Urine WBC (Auto) Crossmatch 04/04/22 04/04/22 04/04/22 04:18 04:18 05:50 WBC 11.8 H RBC Hgb Hct MCV MCH MCHC RDW Plt Count 132 L Lymph % (Auto) [place] % (Auto) Lymph # (Auto) [place] # (Auto) Seg Neutrophils % Seg Neuts % (Manual) Lymphocytes % (Manual) Seg Neutrophils # Seg Neutrophils # Man Lymphocytes # (Manual) PT INR ABG pH 7.517 H ABG pO2 115.5 H ABG HCO3 29.9 H ABG O2 Saturation ABG Base Excess 6.7 H ABG Hemoglobin 12.3 L Oxyhemoglobin Sodium Potassium 3.5 L Chloride Carbon Dioxide 31 H BUN Creatinine 0.3 L Glucose 153 H POC Glucose Calcium Phosphorus 1.40 L Magnesium 1.50 L Total Creatine Kinase CK-MB (CK-2) Rel Index Troponin T C-Reactive Protein 31.60 H Total Protein Albumin LDL Cholesterol Direct Urine WBC (Auto) Crossmatch 04/05/22 04/05/22 04/05/22 02:50 05:25 11:28 WBC RBC Hgb Hct MCV MCH MCHC RDW Plt Count Lymph % (Auto) [place] % (Auto) Lymph # (Auto) [place] # (Auto) Seg Neutrophils % Seg Neuts % (Manual) Lymphocytes % (Manual) Seg Neutrophils # Seg Neutrophils # Man Lymphocytes # (Manual) PT INR ABG pH 7.455 H ABG pO2 50.7 L ABG HCO3 30.5 H ABG O2 Saturation 89.4 L ABG Base Excess 5.9 H ABG Hemoglobin 11.8 L Oxyhemoglobin 88.2 L Sodium Potassium Chloride Carbon Dioxide 32 H BUN Creatinine 0.2 L Glucose 110 H POC Glucose 124 H Calcium 7.9 L Phosphorus Magnesium Total Creatine Kinase CK-MB (CK-2) Rel Index Troponin T C-Reactive Protein Total Protein Albumin LDL Cholesterol Direct Urine WBC (Auto) Crossmatch 04/05/22 04/05/22 04/06/22 17:45 Unknown 04:00 WBC RBC 3.55 L Hgb 11.1 L 11.5 L Hct 33.2 L 35.1 L MCV MCH MCHC RDW Plt Count 113 L 114 L Lymph % (Auto) [place] % (Auto) Lymph # (Auto) [place] # (Auto) Seg Neutrophils % Seg Neuts % (Manual) Lymphocytes % (Manual) Seg Neutrophils # Seg Neutrophils # Man Lymphocytes # (Manual) PT INR ABG pH ABG pO2 ABG HCO3 ABG O2 Saturation ABG Base Excess ABG Hemoglobin Oxyhemoglobin Sodium Potassium Chloride Carbon Dioxide BUN Creatinine Glucose POC Glucose Calcium Phosphorus Magnesium Total Creatine Kinase CK-MB (CK-2) Rel Index Troponin T C-Reactive Protein Total Protein Albumin LDL Cholesterol Direct Urine WBC (Auto) 8.0 H Crossmatch 05/3104/06/22 04/07/22 04:00 08:30 00:04 WBC RBC Hgb Hct MCV MCH MCHC RDW Plt Count Lymph % (Auto) [place] % (Auto) Lymph # (Auto) [place] # (Auto) Seg Neutrophils % Seg Neuts % (Manual) Lymphocytes % (Manual) Seg Neutrophils # Seg Neutrophils # Man Lymphocytes # (Manual) PT INR ABG pH ABG pO2 60.8 L ABG HCO3 30.5 H ABG O2 Saturation 93.3 L ABG Base Excess 4.9 H ABG Hemoglobin 12.4 L Oxyhemoglobin 92.1 L Sodium Potassium 3.0 L Chloride Carbon Dioxide BUN Creatinine < 0.2 L Glucose 130 H POC Glucose 117 H Calcium 8.1 L Phosphorus Magnesium Total Creatine Kinase CK-MB (CK-2) Rel Index Troponin T C-Reactive Protein Total Protein Albumin LDL Cholesterol Direct Urine WBC (Auto) Crossmatch 04/07/22 04/07/22 04/07/22 03:51 03:51 03:51 WBC 14.6 H RBC 3.57 L Hgb 11.1 L Hct 33.2 L MCV MCH MCHC RDW Plt Count 118 L Lymph % (Auto) 4.3 L [place] % (Auto) 8.8 H Lymph # (Auto) 0.6 L [place] # (Auto) 1.3 H Seg Neutrophils % 86.6 H Seg Neuts % (Manual) Lymphocytes % (Manual) Seg Neutrophils # 12.7 H Seg Neutrophils # Man Lymphocytes # (Manual) PT 15.2 H INR ABG pH ABG pO2 ABG HCO3 ABG O2 Saturation ABG Base Excess ABG Hemoglobin Oxyhemoglobin Sodium 133 L Potassium Chloride 96.0 L Carbon Dioxide 31 H BUN Creatinine 0.2 L Glucose 130 H POC Glucose Calcium 8.0 L Phosphorus Magnesium Total Creatine Kinase CK-MB (CK-2) Rel Index Troponin T C-Reactive Protein Total Protein Albumin LDL Cholesterol Direct Urine WBC (Auto) Crossmatch 04/07/22 04/07/22 04/08/22 04:25 09:10 04:49 WBC 16.1 H RBC 3.54 L Hgb 10.9 L Hct 33.3 L MCV MCH MCHC RDW Plt Count Lymph % (Auto) [place] % (Auto) Lymph # (Auto) [place] # (Auto) Seg Neutrophils % Seg Neuts % (Manual) Lymphocytes % (Manual) Seg Neutrophils # Seg Neutrophils # Man Lymphocytes # (Manual) PT INR ABG pH ABG pO2 71.0 L 63.4 L ABG HCO3 31.5 H 40.0 H ABG O2 Saturation 94.9 L ABG Base Excess 5.9 H 13.6 H ABG Hemoglobin 11.3 L 9.0 L Oxyhemoglobin 93.6 L Sodium Potassium Chloride Carbon Dioxide BUN Creatinine Glucose POC Glucose Calcium Phosphorus Magnesium Total Creatine Kinase CK-MB (CK-2) Rel Index Troponin T C-Reactive Protein Total Protein Albumin LDL Cholesterol Direct Urine WBC (Auto) Crossmatch 04/08/22 04/08/22 04/08/22 04:49 09:53 10:25 WBC RBC Hgb Hct MCV MCH MCHC RDW Plt Count Lymph % (Auto) [place] % (Auto) Lymph # (Auto) [place] # (Auto) Seg Neutrophils % Seg Neuts % (Manual) Lymphocytes % (Manual) Seg Neutrophils # Seg Neutrophils # Man Lymphocytes # (Manual) PT INR ABG pH ABG pO2 ABG HCO3 34.7 H ABG O2 Saturation ABG Base Excess 7.9 H ABG Hemoglobin 11.0 L Oxyhemoglobin Sodium 136 L Potassium Chloride 97.7 L Carbon Dioxide 33 H BUN Creatinine 0.2 L Glucose 155 H POC Glucose Calcium Phosphorus Magnesium Total Creatine Kinase CK-MB (CK-2) Rel Index Troponin T 0.030 H C-Reactive Protein Total Protein Albumin LDL Cholesterol Direct Urine WBC (Auto) Crossmatch 04/08/22 04/08/22 04/08/22 11:19 17:47 18:06 WBC RBC Hgb Hct MCV MCH MCHC RDW Plt Count Lymph % (Auto) [place] % (Auto) Lymph # (Auto) [place] # (Auto) Seg Neutrophils % Seg Neuts % (Manual) Lymphocytes % (Manual) Seg Neutrophils # Seg Neutrophils # Man Lymphocytes # (Manual) PT INR ABG pH ABG pO2 ABG HCO3 ABG O2 Saturation ABG Base Excess ABG Hemoglobin Oxyhemoglobin Sodium Potassium Chloride Carbon Dioxide BUN Creatinine Glucose POC Glucose 121 H Calcium Phosphorus Magnesium Total Creatine Kinase 31 L 46 L CK-MB (CK-2) Rel Index 6.4 H 5.6 H Troponin T 0.030 H 0.031 H C-Reactive Protein Total Protein Albumin LDL Cholesterol Direct Urine WBC (Auto) Crossmatch 04/09/22 04/09/22 04/09/22 04:35 04:35 11:24 WBC 11.5 H RBC 3.16 L Hgb 9.9 L Hct 29.4 L MCV MCH MCHC RDW Plt Count 131 L Lymph % (Auto) [place] % (Auto) Lymph # (Auto) [place] # (Auto) Seg Neutrophils % Seg Neuts % (Manual) Lymphocytes % (Manual) Seg Neutrophils # Seg Neutrophils # Man Lymphocytes # (Manual) PT INR ABG pH ABG pO2 ABG HCO3 ABG O2 Saturation ABG Base Excess ABG Hemoglobin Oxyhemoglobin Sodium Potassium Chloride 97.1 L Carbon Dioxide 35 H BUN Creatinine < 0.2 L Glucose 145 H POC Glucose 147 H Calcium Phosphorus Magnesium Total Creatine Kinase CK-MB (CK-2) Rel Index Troponin T C-Reactive Protein Total Protein Albumin LDL Cholesterol Direct Urine WBC (Auto) Crossmatch 04/09/22 04/09/22 04/09/22 13:00 17:32 23:48 WBC RBC Hgb Hct MCV MCH MCHC RDW Plt Count Lymph % (Auto) [place] % (Auto) Lymph # (Auto) [place] # (Auto) Seg Neutrophils % Seg Neuts % (Manual) Lymphocytes % (Manual) Seg Neutrophils # Seg Neutrophils # Man Lymphocytes # (Manual) PT INR ABG pH ABG pO2 66.6 L ABG HCO3 38.2 H ABG O2 Saturation 94.4 L ABG Base Excess 10.7 H ABG Hemoglobin 10.7 L Oxyhemoglobin 92.8 L Sodium Potassium Chloride Carbon Dioxide BUN Creatinine Glucose POC Glucose 143 H 114 H Calcium Phosphorus Magnesium Total Creatine Kinase CK-MB (CK-2) Rel Index Troponin T C-Reactive Protein Total Protein Albumin LDL Cholesterol Direct Urine WBC (Auto) Crossmatch 04/10/22 04/10/22 04/10/22 04:48 04:48 05:34 WBC RBC 2.91 L Hgb 9.1 L Hct 27.7 L MCV 95 H MCH MCHC RDW Plt Count Lymph % (Auto) [place] % (Auto) Lymph # (Auto) [place] # (Auto) Seg Neutrophils % Seg Neuts % (Manual) Lymphocytes % (Manual) Seg Neutrophils # Seg Neutrophils # Man Lymphocytes # (Manual) PT INR ABG pH ABG pO2 ABG HCO3 ABG O2 Saturation ABG Base Excess ABG Hemoglobin Oxyhemoglobin Sodium Potassium Chloride 95.7 L Carbon Dioxide 38 H BUN Creatinine < 0.2 L Glucose 118 H POC Glucose 127 H Calcium Phosphorus Magnesium Total Creatine Kinase CK-MB (CK-2) Rel Index Troponin T C-Reactive Protein Total Protein Albumin LDL Cholesterol Direct Urine WBC (Auto) Crossmatch 04/10/22 04/11/22 04/11/22 23:10 04:15 04:15 WBC 17.2 H RBC 2.98 L Hgb 9.2 L Hct 27.9 L MCV MCH MCHC RDW Plt Count Lymph % (Auto) [place] % (Auto) Lymph # (Auto) [place] # (Auto) Seg Neutrophils % Seg Neuts % (Manual) Lymphocytes % (Manual) Seg Neutrophils # Seg Neutrophils # Man Lymphocytes # (Manual) PT INR ABG pH ABG pO2 ABG HCO3 ABG O2 Saturation ABG Base Excess ABG Hemoglobin Oxyhemoglobin Sodium Potassium Chloride 96.1 L Carbon Dioxide 35 H BUN Creatinine < 0.2 L Glucose 138 H POC Glucose 106 H Calcium 8.3 L Phosphorus Magnesium Total Creatine Kinase CK-MB (CK-2) Rel Index Troponin T C-Reactive Protein Total Protein Albumin LDL Cholesterol Direct Urine WBC (Auto) Crossmatch 04/11/22 04/11/22 04/11/22 05:31 13:18 16:20 WBC RBC Hgb Hct MCV MCH MCHC RDW Plt Count Lymph % (Auto) [place] % (Auto) Lymph # (Auto) [place] # (Auto) Seg Neutrophils % Seg Neuts % (Manual) Lymphocytes % (Manual) Seg Neutrophils # Seg Neutrophils # Man Lymphocytes # (Manual) PT INR ABG pH ABG pO2 57.8 L ABG HCO3 40.5 H ABG O2 Saturation 90.6 L ABG Base Excess 12.6 H ABG Hemoglobin 10.5 L Oxyhemoglobin 89.0 L Sodium Potassium Chloride Carbon Dioxide BUN Creatinine Glucose POC Glucose 129 H 132 H Calcium Phosphorus Magnesium Total Creatine Kinase CK-MB (CK-2) Rel Index Troponin T C-Reactive Protein Total Protein Albumin LDL Cholesterol Direct Urine WBC (Auto) Crossmatch 04/11/22 04/11/22 04/12/22 17:29 23:17 04:00 WBC 17.4 H RBC 2.96 L Hgb 9.0 L Hct 28.0 L MCV 95 H MCH MCHC RDW Plt Count Lymph % (Auto) [place] % (Auto) Lymph # (Auto) [place] # (Auto) Seg Neutrophils % Seg Neuts % (Manual) Lymphocytes % (Manual) Seg Neutrophils # Seg Neutrophils # Man Lymphocytes # (Manual) PT INR ABG pH ABG pO2 ABG HCO3 ABG O2 Saturation ABG Base Excess ABG Hemoglobin Oxyhemoglobin Sodium Potassium Chloride Carbon Dioxide BUN Creatinine Glucose POC Glucose 125 H 151 H Calcium Phosphorus Magnesium Total Creatine Kinase CK-MB (CK-2) Rel Index Troponin T C-Reactive Protein Total Protein Albumin LDL Cholesterol Direct Urine WBC (Auto) Crossmatch 04/12/22 04/12/22 04/12/22 04:00 17:03 23:39 WBC RBC Hgb Hct MCV MCH MCHC RDW Plt Count Lymph % (Auto) [place] % (Auto) Lymph # (Auto) [place] # (Auto) Seg Neutrophils % Seg Neuts % (Manual) Lymphocytes % (Manual) Seg Neutrophils # Seg Neutrophils # Man Lymphocytes # (Manual) PT INR ABG pH ABG pO2 ABG HCO3 ABG O2 Saturation ABG Base Excess ABG Hemoglobin Oxyhemoglobin Sodium Potassium Chloride 97.4 L Carbon Dioxide 37 H BUN Creatinine < 0.2 L Glucose 127 H POC Glucose 106 H 107 H Calcium Phosphorus Magnesium Total Creatine Kinase CK-MB (CK-2) Rel Index Troponin T C-Reactive Protein Total Protein Albumin LDL Cholesterol Direct Urine WBC (Auto) Crossmatch 04/13/22 04/13/22 04/13/22 04:30 04:30 17:39 WBC 14.1 H RBC 2.66 L Hgb 8.4 L Hct 25.5 L MCV 96 H MCH MCHC RDW Plt Count Lymph % (Auto) [place] % (Auto) Lymph # (Auto) [place] # (Auto) Seg Neutrophils % Seg Neuts % (Manual) Lymphocytes % (Manual) Seg Neutrophils # Seg Neutrophils # Man Lymphocytes # (Manual) PT INR ABG pH ABG pO2 ABG HCO3 ABG O2 Saturation ABG Base Excess ABG Hemoglobin Oxyhemoglobin Sodium Potassium Chloride 93.9 L Carbon Dioxide 39 H BUN Creatinine < 0.2 L Glucose POC Glucose 134 H Calcium Phosphorus 1.90 L Magnesium Total Creatine Kinase CK-MB (CK-2) Rel Index Troponin T C-Reactive Protein Total Protein Albumin LDL Cholesterol Direct Urine WBC (Auto) Crossmatch 04/14/22 04/14/22 04/14/22 05:03 05:03 09:10 WBC 15.6 H RBC 3.02 L Hgb 9.3 L Hct 28.8 L MCV 95 H MCH MCHC RDW Plt Count Lymph % (Auto) [place] % (Auto) Lymph # (Auto) [place] # (Auto) Seg Neutrophils % Seg Neuts % (Manual) Lymphocytes % (Manual) Seg Neutrophils # Seg Neutrophils # Man Lymphocytes # (Manual) PT INR ABG pH ABG pO2 66.9 L ABG HCO3 44.5 H ABG O2 Saturation ABG Base Excess 17.2 H ABG Hemoglobin 8.1 L Oxyhemoglobin 94.8 L Sodium Potassium Chloride 93.8 L Carbon Dioxide 42 H* BUN Creatinine < 0.2 L Glucose 117 H POC Glucose Calcium Phosphorus Magnesium Total Creatine Kinase CK-MB (CK-2) Rel Index Troponin T C-Reactive Protein Total Protein Albumin LDL Cholesterol Direct Urine WBC (Auto) Crossmatch 04/15/22 04/15/22 04/16/22 04:44 04:44 04:16 WBC 13.0 H 12.6 H RBC 3.19 L 3.09 L Hgb 9.6 L 9.5 L Hct 30.2 L 29.1 L MCV 95 H MCH MCHC RDW Plt Count 456 H Lymph % (Auto) [place] % (Auto) Lymph # (Auto) [place] # (Auto) Seg Neutrophils % Seg Neuts % (Manual) Lymphocytes % (Manual) Seg Neutrophils # Seg Neutrophils # Man Lymphocytes # (Manual) PT INR ABG pH ABG pO2 ABG HCO3 ABG O2 Saturation ABG Base Excess ABG Hemoglobin Oxyhemoglobin Sodium Potassium Chloride 95.5 L Carbon Dioxide 37 H BUN Creatinine < 0.2 L Glucose POC Glucose Calcium Phosphorus Magnesium Total Creatine Kinase CK-MB (CK-2) Rel Index Troponin T C-Reactive Protein Total Protein Albumin LDL Cholesterol Direct Urine WBC (Auto) Crossmatch 04/16/22 04/16/22 04/16/22 04:16 05:00 14:00 WBC RBC Hgb Hct MCV MCH MCHC RDW Plt Count Lymph % (Auto) [place] % (Auto) Lymph # (Auto) [place] # (Auto) Seg Neutrophils % Seg Neuts % (Manual) Lymphocytes % (Manual) Seg Neutrophils # Seg Neutrophils # Man Lymphocytes # (Manual) PT INR ABG pH 7.324 L ABG pO2 55.6 L ABG HCO3 45.3 H ABG O2 Saturation 87.1 L ABG Base Excess 16.6 H ABG Hemoglobin 8.6 L Oxyhemoglobin 85.7 L Sodium Potassium Chloride 97.6 L Carbon Dioxide 36 H BUN Creatinine < 0.2 L Glucose 109 H POC Glucose 120 H Calcium Phosphorus Magnesium Total Creatine Kinase CK-MB (CK-2) Rel Index Troponin T C-Reactive Protein Total Protein Albumin LDL Cholesterol Direct Urine WBC (Auto) Crossmatch 04/17/22 04/17/22 04/17/22 04:36 04:36 04:57 WBC 14.4 H RBC 3.08 L Hgb 9.4 L Hct 29.0 L MCV MCH MCHC RDW Plt Count Lymph % (Auto) [place] % (Auto) Lymph # (Auto) [place] # (Auto) Seg Neutrophils % Seg Neuts % (Manual) Lymphocytes % (Manual) Seg Neutrophils # Seg Neutrophils # Man Lymphocytes # (Manual) PT INR ABG pH ABG pO2 ABG HCO3 ABG O2 Saturation ABG Base Excess ABG Hemoglobin Oxyhemoglobin Sodium Potassium Chloride 95.9 L Carbon Dioxide 39 H BUN Creatinine < 0.2 L Glucose 140 H POC Glucose 137 H Calcium 8.3 L Phosphorus Magnesium Total Creatine Kinase CK-MB (CK-2) Rel Index Troponin T C-Reactive Protein Total Protein Albumin LDL Cholesterol Direct Urine WBC (Auto) Crossmatch 04/17/22 04/17/22 04/18/22 09:15 18:01 04:20 WBC 11.2 H RBC 3.00 L Hgb 9.3 L Hct 28.6 L MCV 95 H MCH MCHC RDW Plt Count Lymph % (Auto) [place] % (Auto) Lymph # (Auto) [place] # (Auto) Seg Neutrophils % Seg Neuts % (Manual) Lymphocytes % (Manual) Seg Neutrophils # Seg Neutrophils # Man Lymphocytes # (Manual) PT INR ABG pH 7.345 L ABG pO2 ABG HCO3 48.2 H ABG O2 Saturation ABG Base Excess 19.2 H ABG Hemoglobin 9.7 L Oxyhemoglobin Sodium Potassium Chloride Carbon Dioxide BUN Creatinine Glucose POC Glucose 129 H Calcium Phosphorus Magnesium Total Creatine Kinase CK-MB (CK-2) Rel Index Troponin T C-Reactive Protein Total Protein Albumin LDL Cholesterol Direct Urine WBC (Auto) Crossmatch 04/18/22 04/18/22 04/18/22 04:20 17:35 23:50 WBC RBC Hgb Hct MCV MCH MCHC RDW Plt Count Lymph % (Auto) [place] % (Auto) Lymph # (Auto) [place] # (Auto) Seg Neutrophils % Seg Neuts % (Manual) Lymphocytes % (Manual) Seg Neutrophils # Seg Neutrophils # Man Lymphocytes # (Manual) PT INR ABG pH ABG pO2 ABG HCO3 ABG O2 Saturation ABG Base Excess ABG Hemoglobin Oxyhemoglobin Sodium Potassium Chloride 96.8 L Carbon Dioxide 43 H* BUN 22 H Creatinine < 0.2 L Glucose 137 H POC Glucose 128 H 123 H Calcium 8.2 L Phosphorus Magnesium Total Creatine Kinase CK-MB (CK-2) Rel Index Troponin T C-Reactive Protein Total Protein Albumin LDL Cholesterol Direct Urine WBC (Auto) Crossmatch 04/19/22 04/19/22 04/19/22 04:08 04:08 08:50 WBC 16.8 H RBC 3.18 L Hgb 9.8 L Hct 30.1 L MCV 95 H MCH MCHC RDW Plt Count Lymph % (Auto) [place] % (Auto) Lymph # (Auto) [place] # (Auto) Seg Neutrophils % Seg Neuts % (Manual) Lymphocytes % (Manual) Seg Neutrophils # Seg Neutrophils # Man Lymphocytes # (Manual) PT INR ABG pH ABG pO2 56.0 L ABG HCO3 47.1 H ABG O2 Saturation 93.3 L ABG Base Excess 20.1 H ABG Hemoglobin 8.0 L Oxyhemoglobin 91.8 L Sodium Potassium Chloride 96.2 L Carbon Dioxide 40 H BUN 24 H Creatinine < 0.2 L Glucose 125 H POC Glucose Calcium 8.3 L Phosphorus Magnesium Total Creatine Kinase CK-MB (CK-2) Rel Index Troponin T C-Reactive Protein Total Protein Albumin LDL Cholesterol Direct Urine WBC (Auto) Crossmatch 04/19/22 04/20/22 04/20/22 12:02 00:40 04:49 WBC 14.7 H RBC 3.36 L Hgb 10.3 L Hct 32.0 L MCV 95 H MCH MCHC RDW Plt Count Lymph % (Auto) [place] % (Auto) Lymph # (Auto) [place] # (Auto) Seg Neutrophils % Seg Neuts % (Manual) Lymphocytes % (Manual) Seg Neutrophils # Seg Neutrophils # Man Lymphocytes # (Manual) PT INR ABG pH ABG pO2 ABG HCO3 ABG O2 Saturation ABG Base Excess ABG Hemoglobin Oxyhemoglobin Sodium Potassium Chloride Carbon Dioxide BUN Creatinine Glucose POC Glucose 124 H 140 H Calcium Phosphorus Magnesium Total Creatine Kinase CK-MB (CK-2) Rel Index Troponin T C-Reactive Protein Total Protein Albumin LDL Cholesterol Direct Urine WBC (Auto) Crossmatch 04/20/22 04/20/22 04/21/22 05:36 11:40 04:05 WBC RBC Hgb Hct MCV MCH MCHC RDW Plt Count Lymph % (Auto) [place] % (Auto) Lymph # (Auto) [place] # (Auto) Seg Neutrophils % Seg Neuts % (Manual) Lymphocytes % (Manual) Seg Neutrophils # Seg Neutrophils # Man Lymphocytes # (Manual) PT INR ABG pH ABG pO2 ABG HCO3 ABG O2 Saturation ABG Base Excess ABG Hemoglobin Oxyhemoglobin Sodium Potassium Chloride 93.4 L Carbon Dioxide 40 H BUN 25 H Creatinine < 0.2 L Glucose 122 H POC Glucose 125 H 128 H Calcium Phosphorus Magnesium Total Creatine Kinase CK-MB (CK-2) Rel Index Troponin T C-Reactive Protein Total Protein Albumin LDL Cholesterol Direct Urine WBC (Auto) Crossmatch 04/21/22 04/22/22 04/22/22 10:31 05:03 05:03 WBC 12.6 H 12.7 H RBC 2.83 L 2.96 L Hgb 8.6 L 9.0 L Hct 26.9 L 28.0 L MCV 95 H 95 H MCH MCHC RDW Plt Count Lymph % (Auto) [place] % (Auto) Lymph # (Auto) [place] # (Auto) Seg Neutrophils % Seg Neuts % (Manual) Lymphocytes % (Manual) Seg Neutrophils # Seg Neutrophils # Man Lymphocytes # (Manual) PT INR ABG pH ABG pO2 ABG HCO3 ABG O2 Saturation ABG Base Excess ABG Hemoglobin Oxyhemoglobin Sodium Potassium Chloride 93.9 L Carbon Dioxide 43 H* BUN 23 H Creatinine < 0.2 L Glucose 137 H POC Glucose Calcium Phosphorus Magnesium Total Creatine Kinase CK-MB (CK-2) Rel Index Troponin T C-Reactive Protein Total Protein Albumin LDL Cholesterol Direct Urine WBC (Auto) Crossmatch 04/22/22 04/23/22 04/24/22 08:34 09:40 04:29 WBC 14.4 H RBC 2.74 L Hgb 8.4 L Hct 25.7 L MCV MCH MCHC RDW Plt Count Lymph % (Auto) [place] % (Auto) Lymph # (Auto) [place] # (Auto) Seg Neutrophils % Seg Neuts % (Manual) Lymphocytes % (Manual) Seg Neutrophils # Seg Neutrophils # Man Lymphocytes # (Manual) PT INR ABG pH ABG pO2 54.1 L 56.8 L ABG HCO3 48.5 H 49.0 H ABG O2 Saturation 92.1 L 90.9 L ABG Base Excess 20.9 H 20.8 H ABG Hemoglobin 9.0 L 8.4 L Oxyhemoglobin 90.6 L 89.5 L Sodium Potassium Chloride Carbon Dioxide BUN Creatinine Glucose POC Glucose Calcium Phosphorus Magnesium Total Creatine Kinase CK-MB (CK-2) Rel Index Troponin T C-Reactive Protein Total Protein Albumin LDL Cholesterol Direct Urine WBC (Auto) Crossmatch 04/24/22 04/25/22 04/26/22 04:29 09:00 04:22 WBC RBC 2.88 L Hgb 8.9 L Hct 26.8 L MCV MCH MCHC RDW Plt Count Lymph % (Auto) [place] % (Auto) Lymph # (Auto) [place] # (Auto) Seg Neutrophils % Seg Neuts % (Manual) Lymphocytes % (Manual) Seg Neutrophils # Seg Neutrophils # Man Lymphocytes # (Manual) PT INR ABG pH 7.457 H ABG pO2 66.7 L ABG HCO3 42.6 H ABG O2 Saturation ABG Base Excess 15.3 H ABG Hemoglobin 8.8 L Oxyhemoglobin 94.1 L Sodium Potassium Chloride 90.7 L Carbon Dioxide 40 H BUN Creatinine < 0.2 L Glucose 133 H POC Glucose Calcium Phosphorus Magnesium Total Creatine Kinase CK-MB (CK-2) Rel Index Troponin T C-Reactive Protein Total Protein Albumin LDL Cholesterol Direct Urine WBC (Auto) Crossmatch 04/26/22 04/29/22 04/29/22 04:22 04:18 04:18 WBC 13.5 H RBC 2.96 L Hgb 8.9 L Hct 27.7 L MCV MCH MCHC RDW Plt Count Lymph % (Auto) [place] % (Auto) Lymph # (Auto) [place] # (Auto) Seg Neutrophils % Seg Neuts % (Manual) Lymphocytes % (Manual) Seg Neutrophils # Seg Neutrophils # Man Lymphocytes # (Manual) PT INR ABG pH ABG pO2 ABG HCO3 ABG O2 Saturation ABG Base Excess ABG Hemoglobin Oxyhemoglobin Sodium Potassium Chloride 93.2 L 95.2 L Carbon Dioxide 37 H 38 H BUN Creatinine < 0.2 L < 0.2 L Glucose 114 H 116 H POC Glucose Calcium Phosphorus Magnesium Total Creatine Kinase CK-MB (CK-2) Rel Index Troponin T C-Reactive Protein Total Protein Albumin LDL Cholesterol Direct Urine WBC (Auto) Crossmatch 05/02/22 05/03/22 05/03/22 04:29 04:02 04:02 WBC 12.9 H 12.3 H RBC 2.82 L 2.83 L Hgb 8.4 L 8.4 L Hct 26.2 L 26.0 L MCV MCH MCHC RDW Plt Count Lymph % (Auto) [place] % (Auto) Lymph # (Auto) [place] # (Auto) Seg Neutrophils % Seg Neuts % (Manual) Lymphocytes % (Manual) Seg Neutrophils # Seg Neutrophils # Man Lymphocytes # (Manual) PT INR ABG pH ABG pO2 ABG HCO3 ABG O2 Saturation ABG Base Excess ABG Hemoglobin Oxyhemoglobin Sodium 134 L Potassium Chloride 90.5 L Carbon Dioxide 38 H BUN 21 H Creatinine < 0.2 L Glucose 126 H POC Glucose Calcium Phosphorus Magnesium Total Creatine Kinase CK-MB (CK-2) Rel Index Troponin T C-Reactive Protein Total Protein Albumin LDL Cholesterol Direct Urine WBC (Auto) Crossmatch 05/03/22 05/03/22 05/04/22 12:02 17:42 09:36 WBC RBC Hgb Hct MCV MCH MCHC RDW Plt Count Lymph % (Auto) [place] % (Auto) Lymph # (Auto) [place] # (Auto) Seg Neutrophils % Seg Neuts % (Manual) Lymphocytes % (Manual) Seg Neutrophils # Seg Neutrophils # Man Lymphocytes # (Manual) PT INR ABG pH ABG pO2 55.4 L ABG HCO3 43.7 H ABG O2 Saturation 87.4 L ABG Base Excess 16.1 H ABG Hemoglobin 9.1 L Oxyhemoglobin 85.7 L Sodium Potassium Chloride Carbon Dioxide BUN Creatinine Glucose POC Glucose 139 H 131 H Calcium Phosphorus Magnesium Total Creatine Kinase CK-MB (CK-2) Rel Index Troponin T C-Reactive Protein Total Protein Albumin LDL Cholesterol Direct Urine WBC (Auto) Crossmatch 05/04/22 05/04/22 05/05/22 17:08 23:10 04:23 WBC 14.4 H RBC 2.75 L Hgb 8.2 L Hct 25.2 L MCV MCH MCHC RDW Plt Count Lymph % (Auto) [place] % (Auto) Lymph # (Auto) [place] # (Auto) Seg Neutrophils % Seg Neuts % (Manual) Lymphocytes % (Manual) Seg Neutrophils # Seg Neutrophils # Man Lymphocytes # (Manual) PT INR ABG pH ABG pO2 ABG HCO3 ABG O2 Saturation ABG Base Excess ABG Hemoglobin Oxyhemoglobin Sodium Potassium Chloride Carbon Dioxide BUN Creatinine Glucose POC Glucose 124 H 115 H Calcium Phosphorus Magnesium Total Creatine Kinase CK-MB (CK-2) Rel Index Troponin T C-Reactive Protein Total Protein Albumin LDL Cholesterol Direct Urine WBC (Auto) Crossmatch 05/05/22 05/05/22 05/06/22 04:23 21:39 05:13 WBC RBC Hgb Hct MCV MCH MCHC RDW Plt Count Lymph % (Auto) [place] % (Auto) Lymph # (Auto) [place] # (Auto) Seg Neutrophils % Seg Neuts % (Manual) Lymphocytes % (Manual) Seg Neutrophils # Seg Neutrophils # Man Lymphocytes # (Manual) PT INR ABG pH ABG pO2 ABG HCO3 ABG O2 Saturation ABG Base Excess ABG Hemoglobin Oxyhemoglobin Sodium Potassium Chloride 91.3 L Carbon Dioxide 38 H BUN 23 H Creatinine < 0.2 L Glucose 128 H POC Glucose 141 H 136 H Calcium Phosphorus Magnesium Total Creatine Kinase CK-MB (CK-2) Rel Index Troponin T C-Reactive Protein Total Protein Albumin LDL Cholesterol Direct Urine WBC (Auto) Crossmatch 05/07/22 05/07/22 05/08/22 05:29 22:15 05:48 WBC RBC Hgb Hct MCV MCH MCHC RDW Plt Count Lymph % (Auto) [place] % (Auto) Lymph # (Auto) [place] # (Auto) Seg Neutrophils % Seg Neuts % (Manual) Lymphocytes % (Manual) Seg Neutrophils # Seg Neutrophils # Man Lymphocytes # (Manual) PT INR ABG pH ABG pO2 ABG HCO3 ABG O2 Saturation ABG Base Excess ABG Hemoglobin Oxyhemoglobin Sodium Potassium Chloride Carbon Dioxide BUN Creatinine Glucose POC Glucose 125 H 142 H 122 H Calcium Phosphorus Magnesium Total Creatine Kinase CK-MB (CK-2) Rel Index Troponin T C-Reactive Protein Total Protein Albumin LDL Cholesterol Direct Urine WBC (Auto) Crossmatch 05/08/22 05/08/22 05/09/22 14:04 21:48 15:15 WBC RBC 2.61 L Hgb 7.7 L Hct 23.2 L MCV MCH MCHC RDW Plt Count Lymph % (Auto) 8.1 L [place] % (Auto) Lymph # (Auto) 0.9 L [place] # (Auto) Seg Neutrophils % 86.1 H Seg Neuts % (Manual) Lymphocytes % (Manual) Seg Neutrophils # 9.2 H Seg Neutrophils # Man Lymphocytes # (Manual) PT INR ABG pH ABG pO2 ABG HCO3 ABG O2 Saturation ABG Base Excess ABG Hemoglobin Oxyhemoglobin Sodium Potassium Chloride Carbon Dioxide BUN Creatinine Glucose POC Glucose 112 H 107 H Calcium Phosphorus Magnesium Total Creatine Kinase CK-MB (CK-2) Rel Index Troponin T C-Reactive Protein Total Protein Albumin LDL Cholesterol Direct Urine WBC (Auto) Crossmatch 05/09/22 05/09/22 05/09/22 15:15 15:39 21:15 WBC RBC Hgb Hct MCV MCH MCHC RDW Plt Count Lymph % (Auto) [place] % (Auto) Lymph # (Auto) [place] # (Auto) Seg Neutrophils % Seg Neuts % (Manual) Lymphocytes % (Manual) Seg Neutrophils # Seg Neutrophils # Man Lymphocytes # (Manual) PT INR ABG pH ABG pO2 ABG HCO3 ABG O2 Saturation ABG Base Excess ABG Hemoglobin Oxyhemoglobin Sodium Potassium Chloride 92.9 L Carbon Dioxide 40 H BUN Creatinine < 0.2 L Glucose 141 H POC Glucose 118 H 112 H Calcium Phosphorus Magnesium Total Creatine Kinase CK-MB (CK-2) Rel Index Troponin T C-Reactive Protein Total Protein Albumin LDL Cholesterol Direct Urine WBC (Auto) Crossmatch 05/10/22 05/12/22 05/13/22 15:14 00:25 04:02 WBC 13.3 H RBC 3.14 L Hgb 8.7 L Hct 28.0 L MCV MCH MCHC 31 L RDW Plt Count Lymph % (Auto) [place] % (Auto) Lymph # (Auto) [place] # (Auto) Seg Neutrophils % Seg Neuts % (Manual) Lymphocytes % (Manual) Seg Neutrophils # Seg Neutrophils # Man Lymphocytes # (Manual) PT INR ABG pH ABG pO2 ABG HCO3 ABG O2 Saturation ABG Base Excess ABG Hemoglobin Oxyhemoglobin Sodium Potassium Chloride Carbon Dioxide BUN Creatinine Glucose POC Glucose 113 H 158 H Calcium Phosphorus Magnesium Total Creatine Kinase CK-MB (CK-2) Rel Index Troponin T C-Reactive Protein Total Protein Albumin LDL Cholesterol Direct Urine WBC (Auto) Crossmatch 05/13/22 05/13/22 05/13/22 04:02 06:32 13:09 WBC RBC Hgb Hct MCV MCH MCHC RDW Plt Count Lymph % (Auto) [place] % (Auto) Lymph # (Auto) [place] # (Auto) Seg Neutrophils % Seg Neuts % (Manual) Lymphocytes % (Manual) Seg Neutrophils # Seg Neutrophils # Man Lymphocytes # (Manual) PT INR ABG pH ABG pO2 ABG HCO3 ABG O2 Saturation ABG Base Excess ABG Hemoglobin Oxyhemoglobin Sodium 135 L Potassium Chloride 91.1 L Carbon Dioxide 40 H BUN 23 H Creatinine < 0.2 L Glucose 139 H POC Glucose 129 H 117 H Calcium Phosphorus Magnesium Total Creatine Kinase CK-MB (CK-2) Rel Index Troponin T C-Reactive Protein Total Protein Albumin LDL Cholesterol Direct Urine WBC (Auto) Crossmatch 05/13/22 05/14/22 05/14/22 21:28 05:44 07:35 WBC RBC Hgb Hct MCV MCH MCHC RDW Plt Count Lymph % (Auto) [place] % (Auto) Lymph # (Auto) [place] # (Auto) Seg Neutrophils % Seg Neuts % (Manual) Lymphocytes % (Manual) Seg Neutrophils # Seg Neutrophils # Man Lymphocytes # (Manual) PT INR ABG pH ABG pO2 ABG HCO3 ABG O2 Saturation ABG Base Excess ABG Hemoglobin Oxyhemoglobin Sodium Potassium Chloride Carbon Dioxide BUN Creatinine Glucose POC Glucose 109 H 130 H 125 H Calcium Phosphorus Magnesium Total Creatine Kinase CK-MB (CK-2) Rel Index Troponin T C-Reactive Protein Total Protein Albumin LDL Cholesterol Direct Urine WBC (Auto) Crossmatch 05/14/22 05/14/22 05/15/22 16:26 23:44 10:44 WBC 13.9 H RBC 2.71 L Hgb 7.5 L Hct 23.5 L MCV MCH MCHC RDW 15.9 H Plt Count Lymph % (Auto) [place] % (Auto) Lymph # (Auto) [place] # (Auto) Seg Neutrophils % Seg Neuts % (Manual) Lymphocytes % (Manual) Seg Neutrophils # Seg Neutrophils # Man Lymphocytes # (Manual) PT INR ABG pH ABG pO2 ABG HCO3 ABG O2 Saturation ABG Base Excess ABG Hemoglobin Oxyhemoglobin Sodium Potassium Chloride Carbon Dioxide BUN Creatinine Glucose POC Glucose 112 H 189 H Calcium Phosphorus Magnesium Total Creatine Kinase CK-MB (CK-2) Rel Index Troponin T C-Reactive Protein Total Protein Albumin LDL Cholesterol Direct Urine WBC (Auto) Crossmatch 05/15/22 05/16/22 05/16/22 10:44 14:50 21:36 WBC RBC Hgb Hct MCV MCH MCHC RDW Plt Count Lymph % (Auto) [place] % (Auto) Lymph # (Auto) [place] # (Auto) Seg Neutrophils % Seg Neuts % (Manual) Lymphocytes % (Manual) Seg Neutrophils # Seg Neutrophils # Man Lymphocytes # (Manual) PT INR ABG pH ABG pO2 ABG HCO3 ABG O2 Saturation ABG Base Excess ABG Hemoglobin Oxyhemoglobin Sodium 135 L Potassium 3.3 L D Chloride 91.5 L Carbon Dioxide 33 H D BUN 21 H Creatinine < 0.2 L Glucose 118 H POC Glucose 133 H 123 H Calcium 7.9 L Phosphorus Magnesium Total Creatine Kinase CK-MB (CK-2) Rel Index Troponin T C-Reactive Protein Total Protein Albumin LDL Cholesterol Direct Urine WBC (Auto) Crossmatch 05/17/22 05/17/22 05/17/22 03:41 03:41 05:51 WBC 16.2 H RBC 2.53 L Hgb 7.0 L Hct 21.5 L MCV MCH MCHC RDW 16.2 H Plt Count Lymph % (Auto) [place] % (Auto) Lymph # (Auto) [place] # (Auto) Seg Neutrophils % Seg Neuts % (Manual) 96.0 H Lymphocytes % (Manual) 1.0 L Seg Neutrophils # Seg Neutrophils # Man 15.6 H Lymphocytes # (Manual) 0.2 L PT INR ABG pH ABG pO2 ABG HCO3 ABG O2 Saturation ABG Base Excess ABG Hemoglobin Oxyhemoglobin Sodium 132 L Potassium Chloride 95.0 L Carbon Dioxide BUN 22 H Creatinine < 0.2 L Glucose 122 H POC Glucose 123 H Calcium Phosphorus Magnesium Total Creatine Kinase CK-MB (CK-2) Rel Index Troponin T C-Reactive Protein 31.20 H Total Protein Albumin LDL Cholesterol Direct Urine WBC (Auto) Crossmatch 05/17/22 05/17/22 05/18/22 07:53 21:03 05:41 WBC 15.0 H RBC 2.58 L Hgb 7.1 L Hct 22.3 L MCV MCH MCHC RDW 16.1 H Plt Count Lymph % (Auto) [place] % (Auto) Lymph # (Auto) [place] # (Auto) Seg Neutrophils % Seg Neuts % (Manual) Lymphocytes % (Manual) Seg Neutrophils # Seg Neutrophils # Man Lymphocytes # (Manual) PT INR ABG pH ABG pO2 ABG HCO3 ABG O2 Saturation ABG Base Excess ABG Hemoglobin Oxyhemoglobin Sodium Potassium Chloride Carbon Dioxide BUN Creatinine Glucose POC Glucose 106 H 123 H Calcium Phosphorus Magnesium Total Creatine Kinase CK-MB (CK-2) Rel Index Troponin T C-Reactive Protein Total Protein Albumin LDL Cholesterol Direct Urine WBC (Auto) Crossmatch 05/18/22 05/18/22 05/18/22 05:41 13:56 21:08 WBC RBC Hgb Hct MCV MCH MCHC RDW Plt Count Lymph % (Auto) [place] % (Auto) Lymph # (Auto) [place] # (Auto) Seg Neutrophils % Seg Neuts % (Manual) Lymphocytes % (Manual) Seg Neutrophils # Seg Neutrophils # Man Lymphocytes # (Manual) PT INR ABG pH ABG pO2 ABG HCO3 ABG O2 Saturation ABG Base Excess ABG Hemoglobin Oxyhemoglobin Sodium Potassium Chloride 97.9 L Carbon Dioxide BUN 23 H Creatinine < 0.2 L Glucose 128 H POC Glucose 137 H Calcium Phosphorus Magnesium Total Creatine Kinase CK-MB (CK-2) Rel Index Troponin T C-Reactive Protein Total Protein Albumin LDL Cholesterol Direct Urine WBC (Auto) Crossmatch See Detail 05/18/22 05/19/22 05/20/22 23:21 06:10 00:43 WBC 13.5 H RBC 2.53 L Hgb 7.2 L Hct 21.5 L MCV MCH MCHC RDW 16.4 H Plt Count Lymph % (Auto) [place] % (Auto) Lymph # (Auto) [place] # (Auto) Seg Neutrophils % Seg Neuts % (Manual) Lymphocytes % (Manual) Seg Neutrophils # Seg Neutrophils # Man Lymphocytes # (Manual) PT INR ABG pH ABG pO2 70.5 L ABG HCO3 30.3 H ABG O2 Saturation ABG Base Excess 4.9 H ABG Hemoglobin 5.9 L Oxyhemoglobin Sodium Potassium Chloride Carbon Dioxide BUN Creatinine Glucose POC Glucose 151 H Calcium Phosphorus Magnesium Total Creatine Kinase CK-MB (CK-2) Rel Index Troponin T C-Reactive Protein Total Protein Albumin LDL Cholesterol Direct Urine WBC (Auto) Crossmatch 05/20/22 05/20/22 05/20/22 04:40 04:40 07:08 WBC 13.3 H RBC 2.57 L Hgb 7.1 L Hct 22.2 L MCV MCH MCHC RDW 16.3 H Plt Count Lymph % (Auto) [place] % (Auto) Lymph # (Auto) [place] # (Auto) Seg Neutrophils % Seg Neuts % (Manual) Lymphocytes % (Manual) Seg Neutrophils # Seg Neutrophils # Man Lymphocytes # (Manual) PT INR ABG pH ABG pO2 ABG HCO3 ABG O2 Saturation ABG Base Excess ABG Hemoglobin Oxyhemoglobin Sodium 134 L Potassium Chloride Carbon Dioxide BUN Creatinine < 0.2 L Glucose 170 H POC Glucose 174 H Calcium 8.1 L Phosphorus Magnesium Total Creatine Kinase CK-MB (CK-2) Rel Index Troponin T C-Reactive Protein Total Protein Albumin LDL Cholesterol Direct Urine WBC (Auto) Crossmatch 05/20/22 05/21/22 05/21/22 15:08 05:13 22:07 WBC RBC Hgb Hct MCV MCH MCHC RDW Plt Count Lymph % (Auto) [place] % (Auto) Lymph # (Auto) [place] # (Auto) Seg Neutrophils % Seg Neuts % (Manual) Lymphocytes % (Manual) Seg Neutrophils # Seg Neutrophils # Man Lymphocytes # (Manual) PT INR ABG pH ABG pO2 ABG HCO3 ABG O2 Saturation ABG Base Excess ABG Hemoglobin Oxyhemoglobin Sodium Potassium Chloride Carbon Dioxide BUN Creatinine Glucose POC Glucose 114 H 149 H 113 H Calcium Phosphorus Magnesium Total Creatine Kinase CK-MB (CK-2) Rel Index Troponin T C-Reactive Protein Total Protein Albumin LDL Cholesterol Direct Urine WBC (Auto) Crossmatch 05/22/22 05/22/22 05/22/22 05:49 05:49 07:43 WBC RBC 3.05 L Hgb 8.6 L Hct 26.2 L MCV MCH MCHC RDW 16.8 H Plt Count Lymph % (Auto) [place] % (Auto) Lymph # (Auto) [place] # (Auto) Seg Neutrophils % Seg Neuts % (Manual) Lymphocytes % (Manual) Seg Neutrophils # Seg Neutrophils # Man Lymphocytes # (Manual) PT INR ABG pH ABG pO2 ABG HCO3 ABG O2 Saturation ABG Base Excess ABG Hemoglobin Oxyhemoglobin Sodium 131 L Potassium Chloride 93.3 L Carbon Dioxide 32 H BUN Creatinine < 0.2 L Glucose 148 H POC Glucose 145 H Calcium 8.2 L Phosphorus Magnesium Total Creatine Kinase CK-MB (CK-2) Rel Index Troponin T C-Reactive Protein Total Protein Albumin LDL Cholesterol Direct Urine WBC (Auto) Crossmatch 05/22/22 05/22/22 05/23/22 14:09 22:06 07:57 WBC RBC Hgb Hct MCV MCH MCHC RDW Plt Count Lymph % (Auto) [place] % (Auto) Lymph # (Auto) [place] # (Auto) Seg Neutrophils % Seg Neuts % (Manual) Lymphocytes % (Manual) Seg Neutrophils # Seg Neutrophils # Man Lymphocytes # (Manual) PT INR ABG pH ABG pO2 ABG HCO3 ABG O2 Saturation ABG Base Excess ABG Hemoglobin Oxyhemoglobin Sodium Potassium Chloride Carbon Dioxide BUN Creatinine Glucose POC Glucose 136 H 129 H 137 H Calcium Phosphorus Magnesium Total Creatine Kinase CK-MB (CK-2) Rel Index Troponin T C-Reactive Protein Total Protein Albumin LDL Cholesterol Direct Urine WBC (Auto) Crossmatch 05/23/22 05/23/22 05/24/22 14:13 21:29 04:22 WBC RBC 2.89 L Hgb 7.9 L Hct 24.9 L MCV MCH MCHC RDW 17.0 H Plt Count Lymph % (Auto) [place] % (Auto) Lymph # (Auto) [place] # (Auto) Seg Neutrophils % Seg Neuts % (Manual) Lymphocytes % (Manual) Seg Neutrophils # Seg Neutrophils # Man Lymphocytes # (Manual) PT INR ABG pH ABG pO2 ABG HCO3 ABG O2 Saturation ABG Base Excess ABG Hemoglobin Oxyhemoglobin Sodium Potassium Chloride Carbon Dioxide BUN Creatinine Glucose POC Glucose 135 H 132 H Calcium Phosphorus Magnesium Total Creatine Kinase CK-MB (CK-2) Rel Index Troponin T C-Reactive Protein Total Protein Albumin LDL Cholesterol Direct Urine WBC (Auto) Crossmatch 05/24/22 05/24/22 05/24/22 04:22 06:41 12:12 WBC RBC Hgb Hct MCV MCH MCHC RDW Plt Count Lymph % (Auto) [place] % (Auto) Lymph # (Auto) [place] # (Auto) Seg Neutrophils % Seg Neuts % (Manual) Lymphocytes % (Manual) Seg Neutrophils # Seg Neutrophils # Man Lymphocytes # (Manual) PT INR ABG pH ABG pO2 ABG HCO3 ABG O2 Saturation ABG Base Excess ABG Hemoglobin Oxyhemoglobin Sodium 133 L Potassium 5.1 H Chloride 93.7 L Carbon Dioxide 33 H BUN Creatinine < 0.2 L Glucose 144 H POC Glucose 140 H 130 H Calcium 8.3 L Phosphorus Magnesium Total Creatine Kinase CK-MB (CK-2) Rel Index Troponin T C-Reactive Protein Total Protein Albumin LDL Cholesterol Direct Urine WBC (Auto) Crossmatch 05/24/22 05/25/22 05/25/22 21:24 00:44 05:41 WBC RBC Hgb Hct MCV MCH MCHC RDW Plt Count Lymph % (Auto) [place] % (Auto) Lymph # (Auto) [place] # (Auto) Seg Neutrophils % Seg Neuts % (Manual) Lymphocytes % (Manual) Seg Neutrophils # Seg Neutrophils # Man Lymphocytes # (Manual) PT INR ABG pH ABG pO2 ABG HCO3 ABG O2 Saturation ABG Base Excess ABG Hemoglobin Oxyhemoglobin Sodium Potassium Chloride 94.8 L Carbon Dioxide 35 H BUN Creatinine < 0.2 L Glucose 146 H POC Glucose 141 H 142 H Calcium Phosphorus Magnesium Total Creatine Kinase CK-MB (CK-2) Rel Index Troponin T C-Reactive Protein Total Protein Albumin LDL Cholesterol Direct Urine WBC (Auto) Crossmatch 05/25/22 05/25/22 05/26/22 13:51 14:46 00:31 WBC RBC 2.87 L 2.82 L Hgb 7.8 L 7.6 L Hct 24.4 L 23.9 L MCV MCH 27 L 27 L MCHC RDW 17.1 H 17.4 H Plt Count Lymph % (Auto) 11.9 L [place] % (Auto) Lymph # (Auto) [place] # (Auto) Seg Neutrophils % 81.2 H Seg Neuts % (Manual) Lymphocytes % (Manual) Seg Neutrophils # 8.4 H Seg Neutrophils # Man Lymphocytes # (Manual) PT INR ABG pH ABG pO2 ABG HCO3 ABG O2 Saturation ABG Base Excess ABG Hemoglobin Oxyhemoglobin Sodium Potassium Chloride Carbon Dioxide BUN Creatinine Glucose POC Glucose 139 H Calcium Phosphorus Magnesium Total Creatine Kinase CK-MB (CK-2) Rel Index Troponin T C-Reactive Protein Total Protein Albumin LDL Cholesterol Direct Urine WBC (Auto) Crossmatch 05/26/22 05/26/22 05/26/22 00:31 05:02 20:28 WBC RBC Hgb Hct MCV MCH MCHC RDW Plt Count Lymph % (Auto) [place] % (Auto) Lymph # (Auto) [place] # (Auto) Seg Neutrophils % Seg Neuts % (Manual) Lymphocytes % (Manual) Seg Neutrophils # Seg Neutrophils # Man Lymphocytes # (Manual) PT INR ABG pH ABG pO2 ABG HCO3 ABG O2 Saturation ABG Base Excess ABG Hemoglobin Oxyhemoglobin Sodium 134 L Potassium Chloride 92.4 L Carbon Dioxide 37 H BUN Creatinine < 0.2 L Glucose 140 H POC Glucose 111 H 161 H Calcium 8.2 L Phosphorus Magnesium Total Creatine Kinase CK-MB (CK-2) Rel Index Troponin T C-Reactive Protein Total Protein Albumin LDL Cholesterol Direct Urine WBC (Auto) Crossmatch 05/27/22 05/27/22 05/27/22 05:56 16:32 23:17 WBC RBC Hgb Hct MCV MCH MCHC RDW Plt Count Lymph % (Auto) [place] % (Auto) Lymph # (Auto) [place] # (Auto) Seg Neutrophils % Seg Neuts % (Manual) Lymphocytes % (Manual) Seg Neutrophils # Seg Neutrophils # Man Lymphocytes # (Manual) PT INR ABG pH ABG pO2 ABG HCO3 ABG O2 Saturation ABG Base Excess ABG Hemoglobin Oxyhemoglobin Sodium Potassium Chloride Carbon Dioxide BUN Creatinine Glucose POC Glucose 135 H 138 H 124 H Calcium Phosphorus Magnesium Total Creatine Kinase CK-MB (CK-2) Rel Index Troponin T C-Reactive Protein Total Protein Albumin LDL Cholesterol Direct Urine WBC (Auto) Crossmatch 05/28/22 05/28/22 05/28/22 04:20 04:20 07:26 WBC RBC 2.82 L Hgb 7.6 L Hct 23.6 L MCV MCH 27 L MCHC RDW 17.3 H Plt Count Lymph % (Auto) [place] % (Auto) Lymph # (Auto) [place] # (Auto) Seg Neutrophils % Seg Neuts % (Manual) Lymphocytes % (Manual) Seg Neutrophils # Seg Neutrophils # Man Lymphocytes # (Manual) PT INR ABG pH ABG pO2 ABG HCO3 ABG O2 Saturation ABG Base Excess ABG Hemoglobin Oxyhemoglobin Sodium 135 L Potassium Chloride 94.4 L Carbon Dioxide 35 H BUN Creatinine < 0.2 L Glucose 130 H POC Glucose 124 H Calcium 8.0 L Phosphorus Magnesium Total Creatine Kinase CK-MB (CK-2) Rel Index Troponin T C-Reactive Protein Total Protein Albumin LDL Cholesterol Direct Urine WBC (Auto) Crossmatch 05/28/22 05/28/22 05/29/22 16:20 21:19 13:29 WBC RBC Hgb Hct MCV MCH MCHC RDW Plt Count Lymph % (Auto) [place] % (Auto) Lymph # (Auto) [place] # (Auto) Seg Neutrophils % Seg Neuts % (Manual) Lymphocytes % (Manual) Seg Neutrophils # Seg Neutrophils # Man Lymphocytes # (Manual) PT INR ABG pH ABG pO2 ABG HCO3 ABG O2 Saturation ABG Base Excess ABG Hemoglobin Oxyhemoglobin Sodium Potassium Chloride Carbon Dioxide BUN Creatinine Glucose POC Glucose 138 H 120 H 137 H Calcium Phosphorus Magnesium Total Creatine Kinase CK-MB (CK-2) Rel Index Troponin T C-Reactive Protein Total Protein Albumin LDL Cholesterol Direct Urine WBC (Auto) Crossmatch 05/29/22 05/30/22 05/30/22 23:32 05:54 16:13 WBC RBC Hgb Hct MCV MCH MCHC RDW Plt Count Lymph % (Auto) [place] % (Auto) Lymph # (Auto) [place] # (Auto) Seg Neutrophils % Seg Neuts % (Manual) Lymphocytes % (Manual) Seg Neutrophils # Seg Neutrophils # Man Lymphocytes # (Manual) PT INR ABG pH ABG pO2 ABG HCO3 ABG O2 Saturation ABG Base Excess ABG Hemoglobin Oxyhemoglobin Sodium Potassium Chloride Carbon Dioxide BUN Creatinine Glucose POC Glucose 109 H 128 H 119 H Calcium Phosphorus Magnesium Total Creatine Kinase CK-MB (CK-2) Rel Index Troponin T C-Reactive Protein Total Protein Albumin LDL Cholesterol Direct Urine WBC (Auto) Crossmatch 05/30/22 05/31/22 05/31/22 23:07 04:55 04:55 WBC RBC 2.58 L Hgb 6.9 L Hct 21.4 L MCV 83 L MCH 27 L MCHC RDW 17.6 H Plt Count Lymph % (Auto) [place] % (Auto) Lymph # (Auto) [place] # (Auto) Seg Neutrophils % Seg Neuts % (Manual) Lymphocytes % (Manual) Seg Neutrophils # Seg Neutrophils # Man Lymphocytes # (Manual) PT INR ABG pH ABG pO2 ABG HCO3 ABG O2 Saturation ABG Base Excess ABG Hemoglobin Oxyhemoglobin Sodium 133 L Potassium Chloride 96.1 L Carbon Dioxide 31 H BUN Creatinine < 0.2 L Glucose 129 H POC Glucose 119 H Calcium 7.9 L Phosphorus Magnesium Total Creatine Kinase CK-MB (CK-2) Rel Index Troponin T C-Reactive Protein Total Protein Albumin LDL Cholesterol Direct Urine WBC (Auto) Crossmatch 05/31/22 05/31/22 05/31/22 04:58 06:07 07:25 WBC RBC Hgb Hct MCV MCH MCHC RDW Plt Count Lymph % (Auto) [place] % (Auto) Lymph # (Auto) [place] # (Auto) Seg Neutrophils % Seg Neuts % (Manual) Lymphocytes % (Manual) Seg Neutrophils # Seg Neutrophils # Man Lymphocytes # (Manual) PT INR ABG pH ABG pO2 ABG HCO3 ABG O2 Saturation ABG Base Excess ABG Hemoglobin Oxyhemoglobin Sodium Potassium Chloride Carbon Dioxide BUN Creatinine Glucose POC Glucose 116 H 112 H Calcium Phosphorus Magnesium Total Creatine Kinase CK-MB (CK-2) Rel Index Troponin T C-Reactive Protein Total Protein Albumin LDL Cholesterol Direct Urine WBC (Auto) Crossmatch See Detail Allied health notes reviewed: nursing
--- NOTE | 2022-05-31 14:21 | Progress Note ---
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, recently hospitalized at [facility] admitted for acute hypoxemic respiratory failure 2/2 pneumonia Neuro: h/o ALS -s/p precedex, fentanyl gtt -Reorientation as needed -Maintain sleep-wake cycle -As needed analgesia -CT head with no acute intracranial process -Per family patient is nonverbal at baseline but responsive -Seroquel BID, baclofen TID Cardiac: Suspect ischemic coronary artery disease, ST, h/o cardiomyopathy -Cardiology consulted, appreciate recommendations -continue conservative management -Blood pressure monitoring per protocol -s/p Vasopressor support with Levophed -Echocardiogram shows ejection fraction of 40 to 45%, mild global hypokinesis of left ventricle -Nitro patch, BB Respiratory: Acute hypoxic respiratory failure -CCM consulted, appreciate recommendations -Intubated on 04/02 with a 7.50 ETT attempt at the lips -s/p trach on 04/14 and s/p bronch on 04/15 -A.m. vent settings: AC Rate 14, TV 500, Peep 12, FiO2 50% -See RT notes for titration -Scop patch -VAP bundle -SPO2 monitoring GI: Moderate protein calorie malnutrition -24 hours + 20 mL -PPI -Peg 04/14 -NTR consulted for tube feedings -BR: Senokot/colace, MiraLAX : Metabolic Alkalosis -Record intake and output -Renally dose medications -Avoid nephrotoxic medications -Bladder scan q 8 hours -trend BMP ID: Sepsis, HAP (Pseudomonas and Enterobacter tracheal aspirate), blood culture with bacillus species, Stage 4 sacra ulcer, Pseudomonas and VRE in wound culture -Infectious disease, WOCN, and General Surgery consulted, appreciate recommenda tions -Per infectious disease patient was recently admitted to [facility] but discharged home with home hospice and not giving antibiotics -04/15 Tracheal aspirate with Pseudomonas aeruginosa, Enterobacter aerogenes -04/02 blood culture with bacillus species, 04/05 blood culture NGTD -MRSA (-) -Abx per ID: okay to discharge with IV Abx, Avycaz 2.5 g every 8 hours X 10 days until 06/04/2022. PICC line placed -s/p cefepime, merem, Levaquin, and Vanco -05/19 s/p wound debridement, mesh placement to wound bed and wound vac placement -wound culture with Ecoli -Dressing changes per RN -Monitor WBC and temperature curve Endo: NAD -Avoid hypoglycemia -SSI -Accu-Cheks q 6 Heme: Anemia -Heparin subq -Trend CBC -s/p 1 unit prbc -h/h 6.9/21.4 -1 unit prbc given -Transfuse hemoglobin less than 7 -SCDs to BLE while in bed Advance Care Planning - Disease education, care plan, diagnoses, and prognosis were discussed patie nt's , Carly Lopez, and patient daughter, Kaylee Warren, who translated for #[phone]. They reported that patient was following at [facility] for his ALS and during recent hospitalization at [facility] they were told nothing else can be offered to patient at this time and patient was discharge home with home hospice and PO morphine. First hospice visit was on , 04/01 however, patient became unresponsive 04/02 and they brought in to the hospital. - Goal of care and code status were also addressed at that time. Family wants to wait for a couple days to see how patient respond to current treatment before making a decision. All questions and concerns were addressed at this time. Patient family acknowledged understanding and agreement with care plan. -Patient remains a FULL CODE status. -04/05: Discussion at bedside with interpreting service with Dr. Valdivia and nya fernandez state they would discuss next steps amongst themselves and let healthcare team know of decisions -04/06: extensive discussion with family ( and son) with Dr. Grayson regarding goals of care -04/08: Extensive discussion with with the use of hospital ward clerk line regarding goals of care; no decision made. Possible consult to surgery for trach/PEG early next week. -04/09: Discussion with and her sister with Dr. Grayson and then with Dr. Pineda-> Consulted surgery for trach/peg -04/30 Insurance Denied LTAC, plan for possible SNF placement now. Case management to arrange -Family declined SNF -Awaiting discharge home with ventilator setup for home care due to need for ventilation secondary to trachestomy -DC will be prolonged for 1 week d/t need to remove wound mesh placed by surgery on 05/17 -DC postponed till completion of abx as it was not approved by insurance The high probability of a clinically significant, sudden or life threatening deterioration of the [resp] system(s) required my full and direct attention, intervention and personal management. The aggregate critical care time was [60] minutes. 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 Work-up in the emergency department revealed leukocyto sis, elevated troponin and hyponatremia and CXR revealed moderate to large pleural effusion on the right. Patient was having agonal breathing in the emergency department and was intubated. Patient was admitted to the hospitalist service with consults to [facility], cardiology and infectious disease for further work-up. Hospital Course to Date: 04/03: Intubated and Sedated on versed gtt, RASS-5. CT head/brain noted with no acute intracranial abnormality. Plan to initiated precededx gtt and wean off versed for a RASS goal of 0 to -2. CT chect also reviewed, findings are most consistent with acute bronchopneumonia. Continue empiric IV Abx, vent adjustment per CCM. ID consulted. Continue to F/U on cultures. Titrate pressor for MAP above 65. Medical records requested from [facility]. 04/04: Remains stable on the vent, easily arousable on precedex gtt, not following commands. Plan for SAT/SBT today. PRN analgesia for CPOT greater than 3. Fevers improved, cultures and procal pending. Continue current IV abx, ID also consulted. Remains on low dose pressors, titrate pressors for a MAP above 65. 04/05: Long discussion with family with use of translation phone with [facility] regarding goals of care. Family to have meeting amongst themselves and informed care team of decisions. Fentanyl drip added for respiratory distress. Remains on Precedex drip. Antibiotics per ID. Given 2L NS bolus with levophed gtt 04/06: Family discussion with Dr. Grayson for goals of care. CXR shows possible mucus plug, continue CPT as FiO2 is being able to be weaned. Potassium repleted. Weaning fentnyl gtt. 04/07: Ultrasound guided thoracentesis today scheduled, inadequate amount of p leural effusion on so not completed. Patient was started on Levophed overnight which was weaned off this morning however had to be started twice a day. Remains on fentanyl and Precedex. Cardiology discontinued BB and ACEi in setting of hypotension. 04/08: COVID-19 PCR negative. Routine EEG ordered by cardiology which showed ST changes, cardiology aware. They will continue conservative treatment. Repeat troponins 0.030 which are less than admit of 0.048. Dr. Grayson had a long discussion with with the use of hospital ward clerk today at bedside and has not made a decision regarding goals of care. Possible consult to surgery for trach/PEG early next week. Continues to require Precedex and fentanyl drip for sedation. Carvedilol/lisinopril discontinued as patient is continuously on Le vophed. 04/09: No acute events reported overnight, remains on fentanyl, Precedex and Levophed drips. Dr. Grayson and Dr. Pineda updated family at bedside extensively today. Consulted surgery for trach/PEG. COVID-19 PCR negative. 04/10: Patient noted to have desaturation episodes, FiO2 increased slightly to 35%. Will add Mucomyst. Remains on fentanyl and Precedex. Off of Levophed. Surgery consulted for trach/PEG. 04/11: FiO2 increased over night likely related to hypoxia, continues on fent gtt, weaning precedex gtt as he is also on Seroquel. Will d/w CCM re scheduled or prn oxycodone 04/12: Periods of hypoxia and tachycardia this am. Symptoms improved post deep suction and tracheal lavage, Repeat CXR noted with no significant change. Continue CPT and mucomyst. Plan for possible trach/PEG tomorrow by general surgery. 04/13: Remains stable on the vent. Patient is wake and tracking but does not follow simple commands. No report of hypoxia from overnight, continue CPT and mucomyst. Plan for track and PEG today by General Surgery. Plan for LTAC placement post procedure, case management to arrange. 04/14: VIRGILIO overnight, Trach and PEG postponed for today by general surgery. Plan for LTAC placement post procedure, case management to arrange. 04/15: S/p Trach and PEG. Up to 80% FiO2 this am, this am CXR noted suggesting possible mucus plug. D/W CCM plan for bronch today. Continue CPT and mucomyst. Plan of care thoroughly discussed with patient's and son (who translated for ) at the bedside. Per , compounding and finishing supervisor had already discussed the risks and benefits of the procedure yesterday. She verbalized understanding and agreed with procedure and current care plan, consent signed. Okay to use PEG-tube for meds this am, resume TF once okay by general Surgery. Case management to arrange LTAC placement. 04/16: s/p Bronchocopy by CCM. FiO2 down to 60%, angela 10 this am. This am CXR with moderate improvement. Continue CPT and mucomyst, wean Fio2 as tolerated for SPO2 above 92%. Patient is tolerating TF, advance to goal as ordered. Possible LTAC placement, case management to arrange. 04/17: VIRGILIO overnight. remains stable on the vent, recent CXR and this am ABG n oted. Continue CPT and mucomyst, wean Fio2 as tolerated. 04/18: Remains stable on the vent, Fio2 down to 55% and peep of 8 this am. Continue to wean as tolerated, CPT, and mucomyst. Dsiposition- LTAC placement, case management to arrange. 04/19: No acute events overnight. Continue current management. 04/20: No acute events overnight, continue current management 04/21: Patient had chest ultrasound which showed trace pleural effusions, chest x-ray improved after the addition of Mucomyst yesterday. FiO2 55-65%. No acute events overnight. more interactive today. 04/22: Seroquel changed to BID, FiO2 was increased to 60%. RT increased FIO2 to 100 d/t desaturation into the 80s but was able to wean down. CCM increased PEEP and decreased FiO2. 04/23: CCM increase PEEP, no acute events reported overnight. 04/24: Spoke to RT about decreasing FiO2 as tolerated. No acute events reported overnight. Continue supportive management. 04/25: Weaning as tolerated. no acute events overnight. RT to attempt CPAP again today 04/26: VIRGILIO overnight. Patient failed PSV trial again this morning. Continue supportive management and daily PST trial. 04/27: Patient failed PSV trial again this am due to episodes of apnea. Continue daily PSV trial as tolerated. Case management to arrange LTAC placement 04/28: Remains stable. Continue daily PSV trial as tolerated. Awaiting approval for LTAC 04/29: VIRGILIO overnight. Continue daily PSV trial. Awaiting approval for LTAC, case management to arrange. 04/30: Patient continue to fail PSV trial. Per case management patient was denied for LTAC, now possible SNF placement. Case managemen to arrange. Continue supportive measures and daily PSV trial as tolerated. 05/01: VIRGILIO overnight. Continue supportive measures and daily PSV trial as tolerated. Possible SNF placement. 05/02: Continue supportive measures and daily PSV trial as tolerated. Possible S NF placement, case management to arrange 05/03: no acute events overnight, CM arranging home vent setup. Family declined SNF. 05/04: RN/RT reports thin secretions, increase in FiO2 for decreased oxygen on ABG. No acute events overnight. 05/05: Family scheduled for teaching session today at 2pm. Increase in FiO2 overnight to 45%. Awaiting vent setup for home care for ventilation secondary to tracheostomy. 05/06: No acute events reported overnight, T-max 100.9. FiO2 45%. Awaiting discharge home with vent when teaching is completed 05/07: No acute events reported overnight, Awaiting discharge home with vent when teaching is completed 05/08: No acute events reported overnight, Awaiting discharge home with vent when teaching is completed 05/09: no acute events reported overnight. Ordered routine labs today. Family continuing with vent training. Anticipate discharge home this week possibly on Tuesday. 05/10: VIRGILIO overnight. Continue current supportive measures and family training at the bedside. Plan for discharge home tomorrow. 05/11: Discharge home today. supervisor [employer] at 12pm 05/12: Discharge cancelled yesterday. Patient desated on home vent at max setting. Home vent is not sufficient to support patient's ventilation need. D/w CCM, Dr. Valdivia, who recommend SNF placement at this time. Patient's family notified at the bedside. All questions and concerns were address at this time. Further di scussion on alternative placement to be determine and discussed with patient's family and case management today. The respiratory therapist from [facility] is schedule to come at 1400 today for further assessment. 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; WOCN consult placed 05-18 ID and gen surg consult 05/19: s/p sacral wound debridement with Dr. Jerome with wound vac and mesh placement. Per Dr. Jerome patient will need to either stay in the hospital 1 week to be taken back to the OR for removal of mesh on wound or may be discharged but will have to visit the wound clinic in 2 weeks. We will alert cyanide case hardener. No acute events overnight. 05/20: Remains with leukocytosis, wound VAC in place. Discharge requested to be postponed by surgery. Remains on meropenem and vancomycin. No acute events reported overnight. 05/21: IV abx deescalated by ID, no acute events overnight. Continue current man agement. 05/22: No acute events reported overnight. Hyponatremia noted. Decreased free water flush. We will repeat labs in 48 hours. 05/23: no acute events overnight. 05/24/22 -patient seen today at bedside. Patients eyes open with no purposeful response. i reviewed lab, mar, and v/s. potassium 5.1-kayexalate given times 1- will repeat BMP in am. Pt remain on trach to vent.V/s stable. 05/25/22- Patient has significant history of ALS and as a result has remained on mechanical ventilation. Due to underlying neurological condition patient will require HFCWO vest. The patient has had trials of CoughAssist therapy with flutter wave CPT multiple suctioning while in the hospital but all of these have unfortunately failed to resolve his current condition and will benefit from the HFCWO vest. - patient asleep at the time of assessment. On trach to vent. The plan is to discharge patient on home vent. Reviewed specialist recommendations. We will follow-up with plan of care. Elevated potassium has resolved. Hyponatremia resolved. 05/26: VIRGILIO overnight. Remains afebrile, stable on home vent, VSS. Continue current IV abx, now on Avycaz per ID. 05/27: Remains stable and afebrile. ID recommendations noted, okay to discharge patient home with IV Abx, Avycaz, [id number]. PICC line ordered. Case management to arrange for IV abx at home. Possible discharge home on Tuesday. 05/28 Back on hospital vent overnight due to increase WOB and hypoxia. Patient is stable on low vent setting this am. Repeat CXR pending. D/W CCM plan to switch and optimize patient on his home vent. Continue CPT, mucomyst, and good pulmonary hygiene. PICC inserted, continue current IV Abx per ID. Possible discharge home on Tuesday. 05/29: Back on home vent, stable on 10L flow this am. Repeat CXR noted with no si gnificant change. Continue current supportive care. Case management note and ID recommendations noted. Home infusion IV Abx not covered by insurance, appealed in process. Case management to F/U. Guarded discharge for Tuesday. 05/30: VIRGILIO overnight. Remains stable on home vent. Continue current supportive care. Guarded discharge, awaiting appeal response from insurance for IV abx at home. 05/31: Patient 79 issues and was placed on hospital vent but will be placed back on home vent with troubleshooting. Given 1 unit PRBC today. Possible discharge on Tuesday as patient antibiotics not approved by insurance and will complete infusion on Tuesday. Hospitalist Physical - Constitutional Vitals: Temp Pulse Resp BP Pulse Ox 97.6 F 85 16 99/60 97 05/31/22 12:00 05/31/22 13:00 05/31/22 13:00 05/31/22 13:00 05/31/22 13:00 General appearance: Present: no acute distress, cachectic, other (trach/vent) - EENT Eyes: Present: PERRL, EOM intact ENT: dentition normal - Respiratory Respiratory effort: normal Respiratory: bilateral: diminished - Cardiovascular Rhythm: regular Heart Sounds: Present: S1 & S2. Absent: systolic murmur, diastolic murmur - Extremities Extremities: no ischemia, pulses intact, pulses symmetrical, normal temperature, normal color Peripheral Pulses: within normal limits - Abdominal General gastrointestinal: soft, non-tender, non-distended, normal bowel sounds - Integumentary Integumentary: Present: warm, dry - Psychiatric Psychiatric: cooperative - Neurologic Neurologic: other (moves BUE, intact cough/gag, PERRL) - Allied Health Allied health notes reviewed: nursing, RT, social work HEART Score - HEART Score Troponin: Troponin T 0.031 ng/mL (0.00-0.029) H 04/08/22 17:47 Results - Labs CBC & Chem 7: 05/31/22 04:55 05/31/22 04:55 Labs: Laboratory Last Values WBC 6.0 K/mm3 (4.5-11.0) 05/31/22 04:55 RBC 2.58 M/mm3 (3.65-5.03) L 05/31/22 04:55 Hgb 6.9 gm/dl (11.8-15.2) L 05/31/22 04:55 Hct 21.4 % (35.5-45.6) L 05/31/22 04:55 MCV 83 fl (84-94) L 05/31/22 04:55 MCH 27 pg (28-32) L 05/31/22 04:55 MCHC 32 % (32-34) 05/31/22 04:55 RDW 17.6 % (13.2-15.2) H 05/31/22 04:55 Plt Count 361 K/mm3 (140-440) 05/31/22 04:55 Lymph % (Auto) 11.9 % (13.4-35.0) L 05/25/22 13:51 Campbell % (Auto) 5.6 % (0.0-7.3) 05/25/22 13:51 Eos % (Auto) 0.9 % (0.0-4.3) 05/25/22 13:51 Baso % (Auto) 0.4 % (0.0-1.8) 05/25/22 13:51 Lymph # (Auto) 1.2 K/mm3 (1.2-5.4) 05/25/22 13:51 Campbell # (Auto) 0.6 K/mm3 (0.0-0.8) 05/25/22 13:51 Eos # (Auto) 0.1 K/mm3 (0.0-0.4) 05/25/22 13:51 Baso # (Auto) 0.0 K/mm3 (0.0-0.1) 05/25/22 13:51 Add Manual Diff Complete 05/17/22 03:41 Total Counted 100 05/17/22 03:41 Seg Neutrophils % 81.2 % (40.0-70.0) H 05/25/22 13:51 Seg Neuts % (Manual) 96.0 % (40.0-70.0) H 05/17/22 03:41 Band Neutrophils % 0 % 05/17/22 03:41 Lymphocytes % (Manual) 1.0 % (13.4-35.0) L 05/17/22 03:41 Reactive Lymphs % (Man) 0 % 05/17/22 03:41 Monocytes % (Manual) 3.0 % (0.0-7.3) 05/17/22 03:41 Eosinophils % (Manual) 0 % (0.0-4.3) 05/17/22 03:41 Basophils % (Manual) 0 % (0.0-1.8) 05/17/22 03:41 Metamyelocytes % 0 % 05/17/22 03:41 Myelocytes % 0 % 05/17/22 03:41 Promyelocytes % 0 % 05/17/22 03:41 Blast Cells % 0 % 05/17/22 03:41 Nucleated RBC % Not Reportable 05/17/22 03:41 Seg Neutrophils # 8.4 K/mm3 (1.8-7.7) H 05/25/22 13:51 Seg Neutrophils # Man 15.6 K/mm3 (1.8-7.7) H 05/17/22 03:41 Band Neutrophils # 0.0 K/mm3 05/17/22 03:41 Lymphocytes # (Manual) 0.2 K/mm3 (1.2-5.4) L 05/17/22 03:41 Abs React Lymphs (Man) 0.0 K/mm3 05/17/22 03:41 Monocytes # (Manual) 0.5 K/mm3 (0.0-0.8) 05/17/22 03:41 Eosinophils # (Manual) 0.0 K/mm3 (0.0-0.4) 05/17/22 03:41 Basophils # (Manual) 0.0 K/mm3 (0.0-0.1) 05/17/22 03:41 Metamyelocytes # 0.0 K/mm3 05/17/22 03:41 Myelocytes # 0.0 K/mm3 05/17/22 03:41 Promyelocytes # 0.0 K/mm3 05/17/22 03:41 Blast Cells # 0.0 K/mm3 05/17/22 03:41 WBC Morphology Not Reportable 05/17/22 03:41 Hypersegmented Neuts Not Reportable 05/17/22 03:41 Hyposegmented Neuts Not Reportable 05/17/22 03:41 Hypogranular Neuts Not Reportable 05/17/22 03:41 Smudge Cells Not Reportable 05/17/22 03:41 Toxic Granulation Not Reportable 05/17/22 03:41 Toxic Vacuolation Not Reportable 05/17/22 03:41 Dohle Bodies Not Reportable 05/17/22 03:41 Pelger-Huet Anomaly Not Reportable 05/17/22 03:41 Terry Rods Not Reportable 05/17/22 03:41 Platelet Estimate Consistent w auto 05/17/22 03:41 Clumped Platelets Not Reportable 05/17/22 03:41 Plt Clumps, EDTA Not Reportable 05/17/22 03:41 Large Platelets Not Reportable 05/17/22 03:41 Giant Platelets Not Reportable 05/17/22 03:41 Platelet Satelliting Not Reportable 05/17/22 03:41 Plt Morphology Comment Not Reportable 05/17/22 03:41 RBC Morphology Not Reportable 05/17/22 03:41 Dimorphic RBCs Not Reportable 05/17/22 03:41 Polychromasia Not Reportable 05/17/22 03:41 Hypochromasia Not Reportable 05/17/22 03:41 Poikilocytosis Not Reportable 05/17/22 03:41 Anisocytosis 1+ 05/17/22 03:41 Microcytosis Not Reportable 05/17/22 03:41 Macrocytosis Not Reportable 05/17/22 03:41 Spherocytes Not Reportable 05/17/22 03:41 Pappenheimer Bodies Not Reportable 05/17/22 03:41 Sickle Cells Not Reportable 05/17/22 03:41 Target Cells Not Reportable 05/17/22 03:41 Tear Drop Cells Not Reportable 05/17/22 03:41 Ovalocytes Not Reportable 05/17/22 03:41 Helmet Cells Not Reportable 05/17/22 03:41 Patricio-Friona Bodies Not Reportable 05/17/22 03:41 [place] Rings Not Reportable 05/17/22 03:41 [place] Cells Not Reportable 05/17/22 03:41 Bite Cells Not Reportable 05/17/22 03:41 Crenated Cell Not Reportable 05/17/22 03:41 Elliptocytes Not Reportable 05/17/22 03:41 Acanthocytes (Spur) Not Reportable 05/17/22 03:41 Rouleaux Not Reportable 05/17/22 03:41 Hemoglobin C Crystals Not Reportable 05/17/22 03:41 Schistocytes Not Reportable 05/17/22 03:41 Malaria parasites Not Reportable 05/17/22 03:41 [place] Bodies Not Reportable 05/17/22 03:41 Hem Pathologist Commnt No 05/17/22 03:41 PT 13.6 Sec. (12.2-14.9) 04/13/22 04:30 INR 0.94 (0.87-1.13) 04/13/22 04:30 APTT 35.7 Sec. (24.2-36.6) 04/07/22 03:51 ABG pH 7.385 pH Units (7.350-7.450) 05/19/22 06:10 ABG pCO2 51.9 mm Hg 05/19/22 06:10 ABG pO2 70.5 mm Hg (80.0-90.0) L 05/19/22 06:10 ABG HCO3 30.3 mmol/L (20.0-26.0) H 05/19/22 06:10 ABG O2 Saturation 97.6 % (95.0-99.0) 05/19/22 06:10 ABG O2 Content 8.1 (0.0-44) 05/19/22 06:10 ABG Base Excess 4.9 mmol/L (-2.0-3.0) H 05/19/22 06:10 ABG Hemoglobin 5.9 gm/dl (14.0-18.0) L 05/19/22 06:10 ABG Carboxyhemoglobin 1.5 % (0.0-5.0) 05/19/22 06:10 ABG Methemoglobin 0.4 % (0.0-1.5) 05/19/22 06:10 Oxyhemoglobin 95.8 % (95.0-99.0) 05/19/22 06:10 FiO2 55 % 05/19/22 06:10 Sodium 133 mmol/L (137-145) L 05/31/22 04:55 Potassium 4.6 mmol/L (3.6-5.0) 05/31/22 04:55 Chloride 96.1 mmol/L (98-107) L 05/31/22 04:55 Carbon Dioxide 31 mmol/L (22-30) H 05/31/22 04:55 Anion Gap 11 mmol/L 05/31/22 04:55 BUN 16 mg/dL (9-20) 05/31/22 04:55 Creatinine < 0.2 mg/dL (0.8-1.3) L 05/31/22 04:55 Estimated GFR > 60 ml/min 05/31/22 04:55 BUN/Creatinine Ratio 80 % 05/31/22 04:55 Glucose 129 mg/dL (75-100) H 05/31/22 04:55 POC Glucose 112 mg/dL (70-105) H 05/31/22 07:25 Lactic Acid 1.90 mmol/L (0.7-2.0) 04/02/22 19:39 Calcium 7.9 mg/dL (8.4-10.2) L 05/31/22 04:55 Phosphorus 2.70 mg/dL (2.5-4.5) 05/22/22 05:49 Magnesium 1.80 mg/dL (1.7-2.3) 05/22/22 05:49 Total Bilirubin 0.80 mg/dL (0.1-1.2) 04/02/22 19:39 AST 15 units/L (5-40) 04/02/22 19:39 ALT 9 units/L (7-56) 04/02/22 19:39 Alkaline Phosphatase 43 units/L (35-129) 04/02/22 19:39 Total Creatine Kinase 46 units/L (55-170) L 04/08/22 17:47 CK-MB (CK-2) 2.6 ng/mL (0.0-4.0) 04/08/22 17:47 CK-MB (CK-2) Rel Index 5.6 (0-4) H 04/08/22 17:47 Troponin T 0.031 ng/mL (0.00-0.029) H 04/08/22 17:47 C-Reactive Protein 31.20 mg/dL (0.00-1.30) H 05/17/22 03:41 Total Protein 4.6 g/dL (6.3-8.2) L 04/02/22 19:39 Albumin 2.7 g/dL (3.9-5) L 04/02/22 19:39 Albumin/Globulin Ratio 1.4 % 04/02/22 19:39 Triglycerides 80 mg/dL (2-149) 04/02/22 19:39 Cholesterol 94 mg/dL (50-199) 04/02/22 19:39 LDL Cholesterol Direct 27 mg/dL (50-130) L 04/02/22 19:39 HDL Cholesterol 47 mg/dL (40-59) 04/02/22 19:39 Cholesterol/HDL Ratio 2.00 % 04/02/22 19:39 Procalcitonin 1.30 ng/mL (<0.15) 05/17/22 03:41 Urine Color Aracely (Yellow) 05/18/22 03:50 Urine Turbidity Clear (Clear) 05/18/22 03:50 Urine pH 5.0 (5.0-7.0) 05/18/22 03:50 Ur Specific Howe 1.030 (1.003-1.030) 05/18/22 03:50 Urine Protein 30 mg/dl mg/dL (Negative) 05/18/22 03:50 Urine Glucose (UA) Neg mg/dL (Negative) 05/18/22 03:50 Urine Ketones Tr mg/dL (Negative) 05/18/22 03:50 Urine Blood Neg (Negative) 05/18/22 03:50 Urine Nitrite Neg (Negative) 05/18/22 03:50 Urine Bilirubin Neg (Negative) 05/18/22 03:50 Urine Urobilinogen < 2.0 mg/dL (<2.0) 05/18/22 03:50 Ur Leukocyte Esterase Neg (Negative) 05/18/22 03:50 Urine WBC (Auto) 1.0 /HPF (0.0-6.0) 05/18/22 03:50 Urine RBC (Auto) 1.0 /HPF (0.0-6.0) 05/18/22 03:50 U Epithel Cells (Auto) 2.0 /HPF (0-13.0) 05/18/22 03:50 Urine Bacteria (Auto) 1+ /HPF (Negative) 05/18/22 03:50 Hyaline Casts 1 /LPF 04/05/22 17:45 Urine Mucus Few /HPF 05/18/22 03:50 Nasal Screen MRSA (PCR) Negative (Negative) 04/05/22 12:37 Vancomycin Trough 16.2 ug/mL (5.0-20.0) 05/20/22 20:41 Coronavirus (PCR) Negative (Negative) 04/07/22 14:52 Blood Type O POSITIVE 05/31/22 04:58 Antibody Screen Negative 05/31/22 04:58 Crossmatch See Detail 05/31/22 04:58 Perez/IV: Voiding Method Condom Catheter Active Medications - Current Medications Current Medications: Generic Name Dose Route Start Last Admin Trade Name Freq PRN Reason Stop Dose Admin Acetaminophen 650 mg 04/02/22 23:53 05/29/22 10:07 Acetaminophen 325 Mg Tab PO 650 mg Q6H PRN Administration Pain MILD(1-3)/Fever >100.5/FAITH Acetylcysteine 200 mg 05/04/22 20:00 05/30/22 21:24 Acetylcysteine 20% 200 Mg/1 Ml *For Inhalation Use* INHALATION 200 mg Q12HRT SEGUNDO Administration Albuterol 2.5 mg 05/05/22 20:00 05/31/22 08:23 Albuterol 2.5 Mg/3 Ml Nebu IH 2.5 mg Q12HRT SEGUNDO Administration Lipase/Protease/Amylase 1 each 05/20/22 15:35 Lipase 10,500/Protease 25,000/Amylase 43,750 (Units) Dr Patterson FEEDTUBE PRN PRN For Clogged Feeding Tube Baclofen 10 mg 05/19/22 20:00 05/31/22 08:29 Baclofen 10 Mg Tab PO 10 mg TID SEGUNDO Administration Bisacodyl 10 mg 04/07/22 09:44 04/12/22 10:06 Bisacodyl 10 Mg Rect Supp WA 10 mg QDAY PRN Administration Constipation Docusate Sodium 100 mg 05/18/22 22:00 05/31/22 09:39 Docusate Sodium 100 Mg/10 Ml Oral Liqd FEEDTUBE Not Given BID SEGUNDO Famotidine 20 mg 04/06/22 10:00 05/31/22 09:39 Famotidine 20 Mg Tab FEEDTUBE 20 mg BID SEGUNDO Administration Fentanyl 50 mcg 04/04/22 15:56 05/31/22 08:43 Fentanyl 100 Mcg/2 Ml Inj IV 50 mcg Q2HR PRN Administration For CPOT of greater than 3 Heparin Sodium (Porcine) 5,000 unit 04/03/22 06:00 05/31/22 06:11 Heparin 5,000 Unit/1 Ml Vial SUB-Q 5,000 unit Q8HR SEGUNDO Administration CEFTAZIDIME/AVIBACTAM 2.5 gm/ 50 mls @ 25 mls/hr 05/26/22 09:00 05/31/22 09:46 Sodium Chloride IV 06/05/22 02:59 25 mls/hr Q8H SEGUNDO Administration Sodium Chloride 500 mls @ 0 mls/hr 05/31/22 08:05 Nacl 0.9% 500 Ml IV 05/31/22 23:59 ONCE NR As Directed Insulin Human Lispro 0 unit 05/05/22 06:00 05/31/22 06:13 Insulin Lispro 100 Unit/Ml SUB-Q Not Given Q8HR [facility] Protocol Magnesium Hydroxide 30 ml 04/02/22 23:53 Magnesium Hydroxide (Mom) Oral Liqd Udc PO Q4H PRN Constipation Metoprolol Tartrate 12.5 mg 05/29/22 22:00 05/31/22 09:46 Metoprolol Tartrate 25 Mg Tab FEEDTUBE 12.5 mg BID SEGUNDO Administration Ondansetron HCl 4 mg 04/02/22 23:53 Ondansetron 4 Mg/2 Ml Inj IV Q8H PRN Nausea And Vomiting Polyethylene Glycol 17 gm 05/18/22 15:00 05/31/22 09:39 Polyethylene Glycol 3350 17 Gm Powder FEEDTUBE Not Given QDAY SEGUNDO Quetiapine Fumarate 50 mg 05/13/22 11:00 05/31/22 09:39 Quetiapine 100 Mg Tab FEEDTUBE 50 mg BID SEGUNDO Administration Scopolamine 1 each 05/12/22 09:00 05/30/22 09:15 Scopolamine Transdermal Patch 72 Hr TD 1 each Q3D SEGUNDO Administration Senna 8.8 mg 05/18/22 22:00 05/30/22 21:06 Sennosides Oral Liqd 8.8 Mg/5 Ml Oral Liqd FEEDTUBE Not Given QHS SEGUNDO Simple Syrup 15 ml 05/20/22 15:35 Simple Syrup 15 Ml FEEDTUBE PRN PRN Hypoglycemia Simple Syrup 30 ml 05/20/22 15:35 Simple Syrup 15 Ml FEEDTUBE PRN PRN Hypoglycemia Sodium Bicarbonate 325 mg 05/20/22 15:35 Sodium Bicarbonate 325 Mg Tab FEEDTUBE PRN PRN For Clogged Feeding Tube Sodium Chloride 10 ml 04/03/22 10:00 05/31/22 09:39 Sodium Chloride 0.9% 10 Ml Flush Syringe IV 10 ml BID SEGUNDO Administration Sodium Chloride 10 ml 04/02/22 23:53 05/16/22 05:10 Sodium Chloride 0.9% 10 Ml Flush Syringe IV 10 ml PRN PRN Administration LINE FLUSH Nutrition/Malnutrition Assess - Dietary Evaluation Nutrition/Malnutrition Findings: Nutrition Notes Start: 04/04/22 13:13 Freq: Status: Active Protocol: Document 05/27/22 09:47 COLLEEN (Rec: 05/27/22 10:19 COLLEEN [id number]) Nutrition Notes Initial or Follow up Reassessment Current Diagnosis Coronary Artery Disease, Decubitus(Pressure Ulcer), Sepsis,Respiratory Failure Other Pertinent Diagnosis HCAP, ALS, Broncopneumonia, NSTEMI, Cardiomyopathy, ... Current Diet TF-Osmolite 1.5 Inderjit @ 55 ml/hr (since D 05/19). Labs/Tests 05/27: Na 134, Cl 92.4, CO2 37 , Crea <0.2, Glu 140, Ca 8.2. Pertinent Medications 05/27: Nutritionaslly unremerkable. Height 5 ft 4.8 in Weight 54.3 kg [place] Body Weight (kg) 61.27 BMI 20.0 Weight change and time frame 5.7 Kg body weight gain reported in 1 week. Weight Status Appropriate Subjective/Other Information RD consult for routine F/U on TF tolerance/continuation. TF continues as prescribed, and well tolerated with no residuals, according to RN notes. Pt continues on Mechanical Ventilation, O2 saturation @ 99%, according to Physical Assessment History notes. Procedure on 05/24: WoundVac changed, wound cleaned, and skin substitute in place, well tolerated, according to Operative Report. Plans to discharge on 05/27, on [facility], Pt tolerating well, according to [facility] notes. Percent of energy/protein needs met: Prescribed TF-Osmolite 1.5 Inderjit @ 55 ml/hr provides for energy/protein needs (1,980 Kcal/83 g) during LOS, 102% Kcal; 100% AA. Burn Absent Trauma Absent GI Symptoms Constipation Difficulty In Swallowing,Chewing Food Allergy No Skin Integrity/Comment Stage IV Sacral Ulcer. 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 Yes Is Patient Ambulatory and/or Out of Bed No REE-([place]-confined to bed) 1566.648 Kcal/Kg value to use for calculation 36 Approximate Energy Requirements Using 1955 kcal/Kg Calculation Used for Recommendations Kcal/kg Additional Notes Protein: 1.5-2 g/Kg ABW; 73-98 g/day. Fluids: 1 ml/Kcal, or as per MD. Nutrition Intervention Nutrition Support: Continue TF-Osmolite 1.5 Inderjit @ 55 ml/hr. Flush: 150 ml water Q 4 hr, or as per MD. Kcal 1,980 Protein (gm) 83 Carbohydrates (gm) 269 Fat (gm) 65 Fluid (mL) 1,006 Fiber (gm) 0 % RDI: 102% Kcal; 100% AA. Goal #1 Provide at least 75% of energy /protein needs through Enteral Feeding during LOS. Follow-Up By: 06/10/22 Additional Comments Continue monitoring TF tolerance and BM. <DIXIE BROWN - Last Filed: 06/01/22 07:54> Assessment and Plan Assessment and plan: I saw and evaluated the patient. I agree with the findings and the plan of care as documented in the Nurse Practitioner's~note, with the following corrections and additions. Hospitalist Physical - Constitutional Vitals: Temp Pulse Resp BP Pulse Ox 97.8 F 72 14 94/65 96 06/01/22 07:11 06/01/22 07:00 06/01/22 07:00 06/01/22 07:00 06/01/22 07:00 HEART Score - HEART Score Troponin: Troponin T 0.031 ng/mL (0.00-0.029) H 04/08/22 17:47 Results - Labs CBC & Chem 7: 06/01/22 04:14 05/31/22 04:55 Labs: Laboratory Last Values WBC 6.7 K/mm3 (4.5-11.0) 06/01/22 04:14 RBC 2.80 M/mm3 (3.65-5.03) L 06/01/22 04:14 Hgb 7.6 gm/dl (11.8-15.2) L 06/01/22 04:14 Hct 23.3 % (35.5-45.6) L 06/01/22 04:14 MCV 83 fl (84-94) L 06/01/22 04:14 MCH 27 pg (28-32) L 06/01/22 04:14 MCHC 33 % (32-34) 06/01/22 04:14 RDW 17.8 % (13.2-15.2) H 06/01/22 04:14 Plt Count 342 K/mm3 (140-440) 06/01/22 04:14 Lymph % (Auto) 11.9 % (13.4-35.0) L 05/25/22 13:51 Campbell % (Auto) 5.6 % (0.0-7.3) 05/25/22 13:51 Eos % (Auto) 0.9 % (0.0-4.3) 05/25/22 13:51 Baso % (Auto) 0.4 % (0.0-1.8) 05/25/22 13:51 Lymph # (Auto) 1.2 K/mm3 (1.2-5.4) 05/25/22 13:51 Campbell # (Auto) 0.6 K/mm3 (0.0-0.8) 05/25/22 13:51 Eos # (Auto) 0.1 K/mm3 (0.0-0.4) 05/25/22 13:51 Baso # (Auto) 0.0 K/mm3 (0.0-0.1) 05/25/22 13:51 Add Manual Diff Complete 05/17/22 03:41 Total Counted 100 05/17/22 03:41 Seg Neutrophils % 81.2 % (40.0-70.0) H 05/25/22 13:51 Seg Neuts % (Manual) 96.0 % (40.0-70.0) H 05/17/22 03:41 Band Neutrophils % 0 % 05/17/22 03:41 Lymphocytes % (Manual) 1.0 % (13.4-35.0) L 05/17/22 03:41 Reactive Lymphs % (Man) 0 % 05/17/22 03:41 Monocytes % (Manual) 3.0 % (0.0-7.3) 05/17/22 03:41 Eosinophils % (Manual) 0 % (0.0-4.3) 05/17/22 03:41 Basophils % (Manual) 0 % (0.0-1.8) 05/17/22 03:41 Metamyelocytes % 0 % 05/17/22 03:41 Myelocytes % 0 % 05/17/22 03:41 Promyelocytes % 0 % 05/17/22 03:41 Blast Cells % 0 % 05/17/22 03:41 Nucleated RBC % Not Reportable 05/17/22 03:41 Seg Neutrophils # 8.4 K/mm3 (1.8-7.7) H 05/25/22 13:51 Seg Neutrophils # Man 15.6 K/mm3 (1.8-7.7) H 05/17/22 03:41 Band Neutrophils # 0.0 K/mm3 05/17/22 03:41 Lymphocytes # (Manual) 0.2 K/mm3 (1.2-5.4) L 05/17/22 03:41 Abs React Lymphs (Man) 0.0 K/mm3 05/17/22 03:41 Monocytes # (Manual) 0.5 K/mm3 (0.0-0.8) 05/17/22 03:41 Eosinophils # (Manual) 0.0 K/mm3 (0.0-0.4) 05/17/22 03:41 Basophils # (Manual) 0.0 K/mm3 (0.0-0.1) 05/17/22 03:41 Metamyelocytes # 0.0 K/mm3 05/17/22 03:41 Myelocytes # 0.0 K/mm3 05/17/22 03:41 Promyelocytes # 0.0 K/mm3 05/17/22 03:41 Blast Cells # 0.0 K/mm3 05/17/22 03:41 WBC Morphology Not Reportable 05/17/22 03:41 Hypersegmented Neuts Not Reportable 05/17/22 03:41 Hyposegmented Neuts Not Reportable 05/17/22 03:41 Hypogranular Neuts Not Reportable 05/17/22 03:41 Smudge Cells Not Reportable 05/17/22 03:41 Toxic Granulation Not Reportable 05/17/22 03:41 Toxic Vacuolation Not Reportable 05/17/22 03:41 Dohle Bodies Not Reportable 05/17/22 03:41 Pelger-Huet Anomaly Not Reportable 05/17/22 03:41 Terry Rods Not Reportable 05/17/22 03:41 Platelet Estimate Consistent w auto 05/17/22 03:41 Clumped Platelets Not Reportable 05/17/22 03:41 Plt Clumps, EDTA Not Reportable 05/17/22 03:41 Large Platelets Not Reportable 05/17/22 03:41 Giant Platelets Not Reportable 05/17/22 03:41 Platelet Satelliting Not Reportable 05/17/22 03:41 Plt Morphology Comment Not Reportable 05/17/22 03:41 RBC Morphology Not Reportable 05/17/22 03:41 Dimorphic RBCs Not Reportable 05/17/22 03:41 Polychromasia Not Reportable 05/17/22 03:41 Hypochromasia Not Reportable 05/17/22 03:41 Poikilocytosis Not Reportable 05/17/22 03:41 Anisocytosis 1+ 05/17/22 03:41 Microcytosis Not Reportable 05/17/22 03:41 Macrocytosis Not Reportable 05/17/22 03:41 Spherocytes Not Reportable 05/17/22 03:41 Pappenheimer Bodies Not Reportable 05/17/22 03:41 Sickle Cells Not Reportable 05/17/22 03:41 Target Cells Not Reportable 05/17/22 03:41 Tear Drop Cells Not Reportable 05/17/22 03:41 Ovalocytes Not Reportable 05/17/22 03:41 Helmet Cells Not Reportable 05/17/22 03:41 Patricio-Friona Bodies Not Reportable 05/17/22 03:41 [place] Rings Not Reportable 05/17/22 03:41 Cheikh Cells Not Reportable 05/17/22 03:41 Bite Cells Not Reportable 05/17/22 03:41 Crenated Cell Not Reportable 05/17/22 03:41 Elliptocytes Not Reportable 05/17/22 03:41 Acanthocytes (Spur) Not Reportable 05/17/22 03:41 Rouleaux Not Reportable 05/17/22 03:41 Hemoglobin C Crystals Not Reportable 05/17/22 03:41 Schistocytes Not Reportable 05/17/22 03:41 Malaria parasites Not Reportable 05/17/22 03:41 [place] Bodies Not Reportable 05/17/22 03:41 Hem Pathologist Commnt No 05/17/22 03:41 PT 13.6 Sec. (12.2-14.9) 04/13/22 04:30 INR 0.94 (0.87-1.13) 04/13/22 04:30 APTT 35.7 Sec. (24.2-36.6) 04/07/22 03:51 ABG pH 7.385 pH Units (7.350-7.450) 05/19/22 06:10 ABG pCO2 51.9 mm Hg 05/19/22 06:10 ABG pO2 70.5 mm Hg (80.0-90.0) L 05/19/22 06:10 ABG HCO3 30.3 mmol/L (20.0-26.0) H 05/19/22 06:10 ABG O2 Saturation 97.6 % (95.0-99.0) 05/19/22 06:10 ABG O2 Content 8.1 (0.0-44) 05/19/22 06:10 ABG Base Excess 4.9 mmol/L (-2.0-3.0) H 05/19/22 06:10 ABG Hemoglobin 5.9 gm/dl (14.0-18.0) L 05/19/22 06:10 ABG Carboxyhemoglobin 1.5 % (0.0-5.0) 05/19/22 06:10 ABG Methemoglobin 0.4 % (0.0-1.5) 05/19/22 06:10 Oxyhemoglobin 95.8 % (95.0-99.0) 05/19/22 06:10 FiO2 55 % 05/19/22 06:10 Sodium 133 mmol/L (137-145) L 05/31/22 04:55 Potassium 4.6 mmol/L (3.6-5.0) 05/31/22 04:55 Chloride 96.1 mmol/L (98-107) L 05/31/22 04:55 Carbon Dioxide 31 mmol/L (22-30) H 05/31/22 04:55 Anion Gap 11 mmol/L 05/31/22 04:55 BUN 16 mg/dL (9-20) 05/31/22 04:55 Creatinine < 0.2 mg/dL (0.8-1.3) L 05/31/22 04:55 Estimated GFR > 60 ml/min 05/31/22 04:55 BUN/Creatinine Ratio 80 % 05/31/22 04:55 Glucose 129 mg/dL (75-100) H 05/31/22 04:55 POC Glucose 115 mg/dL (70-105) H 06/01/22 07:24 Lactic Acid 1.90 mmol/L (0.7-2.0) 04/02/22 19:39 Calcium 7.9 mg/dL (8.4-10.2) L 05/31/22 04:55 Phosphorus 2.70 mg/dL (2.5-4.5) 05/22/22 05:49 Magnesium 1.80 mg/dL (1.7-2.3) 05/22/22 05:49 Total Bilirubin 0.80 mg/dL (0.1-1.2) 04/02/22 19:39 AST 15 units/L (5-40) 04/02/22 19:39 ALT 9 units/L (7-56) 04/02/22 19:39 Alkaline Phosphatase 43 units/L (35-129) 04/02/22 19:39 Total Creatine Kinase 46 units/L (55-170) L 04/08/22 17:47 CK-MB (CK-2) 2.6 ng/mL (0.0-4.0) 04/08/22 17:47 CK-MB (CK-2) Rel Index 5.6 (0-4) H 04/08/22 17:47 Troponin T 0.031 ng/mL (0.00-0.029) H 04/08/22 17:47 C-Reactive Protein 31.20 mg/dL (0.00-1.30) H 05/17/22 03:41 Total Protein 4.6 g/dL (6.3-8.2) L 04/02/22 19:39 Albumin 2.7 g/dL (3.9-5) L 04/02/22 19:39 Albumin/Globulin Ratio 1.4 % 04/02/22 19:39 Triglycerides 80 mg/dL (2-149) 04/02/22 19:39 Cholesterol 94 mg/dL (50-199) 04/02/22 19:39 LDL Cholesterol Direct 27 mg/dL (50-130) L 04/02/22 19:39 HDL Cholesterol 47 mg/dL (40-59) 04/02/22 19:39 Cholesterol/HDL Ratio 2.00 % 04/02/22 19:39 Procalcitonin 1.30 ng/mL (<0.15) 05/17/22 03:41 Urine Color Aracely (Yellow) 05/18/22 03:50 Urine Turbidity Clear (Clear) 05/18/22 03:50 Urine pH 5.0 (5.0-7.0) 05/18/22 03:50 Ur Specific Howe 1.030 (1.003-1.030) 05/18/22 03:50 Urine Protein 30 mg/dl mg/dL (Negative) 05/18/22 03:50 Urine Glucose (UA) Neg mg/dL (Negative) 05/18/22 03:50 Urine Ketones Tr mg/dL (Negative) 05/18/22 03:50 Urine Blood Neg (Negative) 05/18/22 03:50 Urine Nitrite Neg (Negative) 05/18/22 03:50 Urine Bilirubin Neg (Negative) 05/18/22 03:50 Urine Urobilinogen < 2.0 mg/dL (<2.0) 05/18/22 03:50 Ur Leukocyte Esterase Neg (Negative) 05/18/22 03:50 Urine WBC (Auto) 1.0 /HPF (0.0-6.0) 05/18/22 03:50 Urine RBC (Auto) 1.0 /HPF (0.0-6.0) 05/18/22 03:50 U Epithel Cells (Auto) 2.0 /HPF (0-13.0) 05/18/22 03:50 Urine Bacteria (Auto) 1+ /HPF (Negative) 05/18/22 03:50 Hyaline Casts 1 /LPF 04/05/22 17:45 Urine Mucus Few /HPF 05/18/22 03:50 Nasal Screen MRSA (PCR) Negative (Negative) 04/05/22 12:37 Vancomycin Trough 16.2 ug/mL (5.0-20.0) 05/20/22 20:41 Coronavirus (PCR) Negative (Negative) 04/07/22 14:52 Blood Type O POSITIVE 05/31/22 04:58 Antibody Screen Negative 05/31/22 04:58 Crossmatch See Detail 05/31/22 04:58 Perez/IV: Voiding Method Condom Catheter Active Medications - Current Medications Current Medications: Generic Name Dose Route Start Last Admin Trade Name Freq PRN Reason Stop Dose Admin Acetaminophen 650 mg 04/02/22 23:53 05/29/22 10:07 Acetaminophen 325 Mg Tab PO 650 mg Q6H PRN Administration Pain MILD(1-3)/Fever >100.5/FAITH Acetylcysteine 200 mg 05/04/22 20:00 05/31/22 20:35 Acetylcysteine 20% 200 Mg/1 Ml *For Inhalation Use* INHALATION 200 mg Q12HRT ESGUNDO Administration Albuterol 2.5 mg 05/05/22 20:00 05/31/22 20:35 Albuterol 2.5 Mg/3 Ml Nebu IH 2.5 mg Q12HRT SEGUNDO Administration Lipase/Protease/Amylase 1 each 05/20/22 15:35 Lipase 10,500/Protease 25,000/Amylase 43,750 (Units) Dr Patterson FEEDTUBE PRN PRN For Clogged Feeding Tube Baclofen 10 mg 05/19/22 20:00 05/31/22 19:55 Baclofen 10 Mg Tab PO 10 mg TID SEGUNDO Administration Bisacodyl 10 mg 04/07/22 09:44 04/12/22 10:06 Bisacodyl 10 Mg Rect Supp WA 10 mg QDAY PRN Administration Constipation Docusate Sodium 100 mg 05/18/22 22:00 05/31/22 22:38 Docusate Sodium 100 Mg/10 Ml Oral Liqd FEEDTUBE 100 mg BID SEGUNDO Administration Famotidine 20 mg 04/06/22 10:00 05/31/22 22:38 Famotidine 20 Mg Tab FEEDTUBE 20 mg BID SEGUNDO Administration Fentanyl 50 mcg 04/04/22 15:56 06/01/22 06:08 Fentanyl 100 Mcg/2 Ml Inj IV 50 mcg Q2HR PRN Administration For CPOT of greater than 3 Heparin Sodium (Porcine) 5,000 unit 04/03/22 06:00 06/01/22 06:08 Heparin 5,000 Unit/1 Ml Vial SUB-Q 5,000 unit Q8HR SEGUNDO Administration CEFTAZIDIME/AVIBACTAM 2.5 gm/ 50 mls @ 25 mls/hr 05/26/22 09:00 06/01/22 01:56 Sodium Chloride IV 06/05/22 02:59 25 mls/hr Q8H SEGUNDO Administration Insulin Human Lispro 0 unit 05/05/22 06:00 06/01/22 06:09 Insulin Lispro 100 Unit/Ml SUB-Q Not Given Q8HR [facility] Protocol Magnesium Hydroxide 30 ml 04/02/22 23:53 Magnesium Hydroxide (Mom) Oral Liqd Udc PO Q4H PRN Constipation Metoprolol Tartrate 12.5 mg 05/29/22 22:00 05/31/22 22:39 Metoprolol Tartrate 25 Mg Tab FEEDTUBE Not Given BID SEGUNDO Ondansetron HCl 4 mg 04/02/22 23:53 Ondansetron 4 Mg/2 Ml Inj IV Q8H PRN Nausea And Vomiting Polyethylene Glycol 17 gm 05/18/22 15:00 05/31/22 09:39 Polyethylene Glycol 3350 17 Gm Powder FEEDTUBE Not Given QDAY SEGUNDO Quetiapine Fumarate 50 mg 05/13/22 11:00 05/31/22 22:38 Quetiapine 100 Mg Tab FEEDTUBE 50 mg BID SEGUNDO Administration Scopolamine 1 each 05/12/22 09:00 05/30/22 09:15 Scopolamine Transdermal Patch 72 Hr TD 1 each Q3D SEGUNDO Administration Senna 8.8 mg 05/18/22 22:00 05/31/22 22:39 Sennosides Oral Liqd 8.8 Mg/5 Ml Oral Liqd FEEDTUBE Not Given QHS SEGUNDO Simple Syrup 15 ml 05/20/22 15:35 Simple Syrup 15 Ml FEEDTUBE PRN PRN Hypoglycemia Simple Syrup 30 ml 05/20/22 15:35 Simple Syrup 15 Ml FEEDTUBE PRN PRN Hypoglycemia Sodium Bicarbonate 325 mg 05/20/22 15:35 Sodium Bicarbonate 325 Mg Tab FEEDTUBE PRN PRN For Clogged Feeding Tube Sodium Chloride 10 ml 05/28/22 10:00 05/31/22 22:40 Sodium Chloride 0.9% 10 Ml Flush Syringe IV 10 ml BID SEGUNDO Administration Sodium Chloride 10 ml 04/02/22 23:53 05/16/22 05:10 Sodium Chloride 0.9% 10 Ml Flush Syringe IV 10 ml PRN PRN Administration LINE FLUSH Nutrition/Malnutrition Assess - Dietary Evaluation Nutrition/Malnutrition Findings: Nutrition Notes Start: 04/04/22 13:13 Freq: Status: Active Protocol: Document 05/27/22 09:47 COLLEEN (Rec: 05/27/22 10:19 COLLEEN [id number]) Nutrition Notes Initial or Follow up Reassessment Current Diagnosis Coronary Artery Disease, Decubitus(Pressure Ulcer), Sepsis,Respiratory Failure Other Pertinent Diagnosis HCAP, ALS, Broncopneumonia, NSTEMI, Cardiomyopathy, ... Current Diet TF-Osmolite 1.5 Inderjit @ 55 ml/hr (since D 05/19). Labs/Tests 05/27: Na 134, Cl 92.4, CO2 37 , Crea <0.2, Glu 140, Ca 8.2. Pertinent Medications 05/27: Nutritionaslly unremerkable. Height 5 ft 4.8 in Weight 54.3 kg [place] Body Weight (kg) 61.27 BMI 20.0 Weight change and time frame 5.7 Kg body weight gain reported in 1 week. Weight Status Appropriate Subjective/Other Information RD consult for routine F/U on TF tolerance/continuation. TF continues as prescribed, and well tolerated with no residuals, according to RN notes. Pt continues on Mechanical Ventilation, O2 saturation @ 99%, according to Physical Assessment History notes. Procedure on 05/24: WoundVac changed, wound cleaned, and skin substitute in place, well tolerated, according to Operative Report. Plans to discharge on 05/27, on [facility], Pt tolerating well, according to [facility] notes. Percent of energy/protein needs met: Prescribed TF-Osmolite 1.5 Inderjit @ 55 ml/hr provides for energy/protein needs (1,980 Kcal/83 g) during LOS, 102% Kcal; 100% AA. Burn Absent Trauma Absent GI Symptoms Constipation Difficulty In Swallowing,Chewing Food Allergy No Skin Integrity/Comment Stage IV Sacral Ulcer. 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 Yes Is Patient Ambulatory and/or Out of Bed No REE-([facility]-confined to bed) 1566.648 Kcal/Kg value to use for calculation 36 Approximate Energy Requirements Using 1955 kcal/Kg Calculation Used for Recommendations Kcal/kg Additional Notes Protein: 1.5-2 g/Kg ABW; 73-98 g/day. Fluids: 1 ml/Kcal, or as per MD. Nutrition Intervention Nutrition Support: Continue TF-Osmolite 1.5 Inderjit @ 55 ml/hr. Flush: 150 ml water Q 4 hr, or as per MD. Kcal 1,980 Protein (gm) 83 Carbohydrates (gm) 269 Fat (gm) 65 Fluid (mL) 1,006 Fiber (gm) 0 % RDI: 102% Kcal; 100% AA. Goal #1 Provide at least 75% of energy /protein needs through Enteral Feeding during LOS. Follow-Up By: 06/10/22 Additional Comments Continue monitoring TF tolerance and BM.
--- NOTE | 2022-05-31 15:01 | XRay Report ---
CHEST 1 VIEW 05/31/2022 12:36 PM INDICATION / CLINICAL INFORMATION: Hypoxia. COMPARISON: 05/28/2022 FINDINGS: SUPPORT DEVICES: Tracheostomy is satisfactory in position HEART / MEDIASTINUM: No significant abnormality. LUNGS / PLEURA: Diffuse opacities in bilateral lungs. Opacities in the lower lungs have increased sin ce prior examination with bilateral effusions No pneumothorax. ADDITIONAL FINDINGS: Right PICC line is retracted and now extends across midline into the left subcla vian region. Called to Nurse Pozo at 109 Signer Name: Nitin Plummer MD Signed: 05/31/2022 1:09 PM Workstation Name: [id number]
--- NOTE | 2022-05-31 15:24 | XRay Report ---
CHEST 1 VIEW 05/31/2022 2:17 PM INDICATION / CLINICAL INFORMATION: PICC LINE PLACEMENT. COMPARISON: Earlier today at 12:39 PM. FINDINGS: SUPPORT DEVICES: There is a new PICC entering from the right arm with the tip curled medially at the level of the azygos vein/SVC junction. The position of the tracheostomy tube has not changed. HEART / MEDIASTINUM: Unchanged. LUNGS / PLEURA: Patchy parenchymal opacities in the left mid to lower lung and in the right lower rory g have not changed significantly. No large pleural effusion. No pneumothorax. ADDITIONAL FINDINGS: No significant additional findings. IMPRESSION: The tip of the right PICC overlies the azygos vein near its junction with the SVC. Reposi tioning is recommended. Signer Name: Saroj Allan MD Signed: 05/31/2022 3:20 PM Workstation Name: [id number]
--- NOTE | 2022-05-31 17:16 | XRay Report ---
CHEST 1 VIEW 05/31/2022 4:08 PM INDICATION / CLINICAL INFORMATION: PICC line placement. COMPARISON: Exam done earlier today FINDINGS: SUPPORT DEVICES: Right upper extremity PICC tip projects over the superior cavoatrial junction now. HEART / MEDIASTINUM: Stable. LUNGS / PLEURA: Worsening bibasilar opacities. No pneumothorax. ADDITIONAL FINDINGS: No significant additional findings. Signer Name: Pawan Gamboa MD Signed: 05/31/2022 5:11 PM Workstation Name: [id number]
--- NOTE | 2022-05-31 19:20 | Progress Note ---
Assessment and Plan Cultures: 04/02/2022 urine culture: No growth 04/02/2022 sputum culture: Pseudomonas, Enterobacter 04/02/2022 blood culture: Bacillus in 1 set 04/05/2022 blood culture: No growth 04/15/2022 right middle lobe bronchial washings: Pseudomonas aeruginosa 05/15/2022 blood culture: No growth 05/17/2022 blood culture: no growth 05/17/2022 sputum culture: Pseudomonas aeruginosa x 2 types 05/19/2022 sacral wound culture: 2x E coli, MDR, CRE 05/19/2022 sacral wound: E coli, Pseudomonas A/P: 57-year-old man with progressive ALS, recently hospitalized at [facility] and was discharged on hospice, readmitted here with: #Sepsis, new fevers and leukocytosis: Etiology pneumonia v/s sacral decubitus ulcer with eschar. S/P debridement on 05/19/2022. #Hospital-acquired pneumonia: previously completed abx for Pseudomonas, Enterobacter. #Acute v/s now chronic respiratory failure: on the vent. S/P trach, PEG #ALS: Was on home hospice. #Bacillus bacteremia: likely contaminant. Recs: -Discussed with pharmacy to start Avycaz given CRE in cultures along with fevers. -Would recommend 10 days Avycaz. Could be discharged with this, case management consult for Avycaz 2.5 g every 8 hours until 06/04/2022 -Informed that his insurance will not pay for Avycaz. Gentamicin is too high risk to manage as an outpatient. Avycaz is effectively his only option. Sameer Ojeda MD [facility] O: [phone] F: [phone] Subjective Date of service: 05/31/22 Principal diagnosis: Ac and ch hypercapnic and hypoxemic Resp Failure; ALS; HCAP; Sepsis; NSTEMI Interval history: Afebrile, normal white count. Imaging personally reviewed: Chest x-ray: Worsening bibasilar opacities Objective - Exam Narrative Exam: Physical Exam: Constitutional: awake, on the vent, trach + Head, Ears, Nose: Normocephalic, atraumatic. External ears, nose normal Eyes: Conjunctivae/corneas clear. No icterus. No ptosis. Neck: trach + Cardiovascular: S1, S2 + Respiratory: AE fair bilaterally and equal GI: Soft, bowel sounds +, PEG + Musculoskeletal: No pedal edema, no cyanosis. Skin: sacral wound with dressing, not directly examined Hem/Lymphatic: No palpable cervical or supraclavicular nodes. No lymphangitis Psych: no agitation Neurological: awake, on the vent, exam limited - Constitutional Vitals: Vital Signs Temp Pulse Resp BP Pulse Ox 98.1 F 103 H 10 L 103/67 98 05/31/22 16:48 05/31/22 17:00 05/31/22 17:00 05/31/22 17:00 05/31/22 17:00 Temperature -Last 24 Hours Temperature 98.1 F Temperature 97.6 F Temperature 97.6 F Temperature 97.7 F Temperature 97.9 F Temperature 98.9 F Temperature 98.9 F Temperature 98.9 F Temperature 99.2 F Temperature 98.9 F - Labs CBC & Chem 7: 05/31/22 04:55 05/31/22 04:55 Labs: Abnormal lab results 05/30/22 05/31/22 05/31/22 Range/Units 23:07 04:55 04:55 RBC 2.58 L (3.65-5.03) M/mm3 Hgb 6.9 L (11.8-15.2) gm/dl Hct 21.4 L (35.5-45.6) % MCV 83 L (84-94) fl MCH 27 L (28-32) pg RDW 17.6 H (13.2-15.2) % Sodium 133 L (137-145) mmol/L Chloride 96.1 L (98-107) mmol/L Carbon Dioxide 31 H (22-30) mmol/L Creatinine < 0.2 L (0.8-1.3) mg/dL Glucose 129 H (75-100) mg/dL POC Glucose 119 H (70-105) mg/dL Calcium 7.9 L (8.4-10.2) mg/dL Crossmatch 05/31/22 05/31/22 05/31/22 Range/Units 04:58 06:07 07:25 RBC (3.65-5.03) M/mm3 Hgb (11.8-15.2) gm/dl Hct (35.5-45.6) % MCV (84-94) fl MCH (28-32) pg RDW (13.2-15.2) % Sodium (137-145) mmol/L Chloride (98-107) mmol/L Carbon Dioxide (22-30) mmol/L Creatinine (0.8-1.3) mg/dL Glucose (75-100) mg/dL POC Glucose 116 H 112 H (70-105) mg/dL Calcium (8.4-10.2) mg/dL Crossmatch See Detail 05/31/22 Range/Units 16:37 RBC (3.65-5.03) M/mm3 Hgb (11.8-15.2) gm/dl Hct (35.5-45.6) % MCV (84-94) fl MCH (28-32) pg RDW (13.2-15.2) % Sodium (137-145) mmol/L Chloride (98-107) mmol/L Carbon Dioxide (22-30) mmol/L Creatinine (0.8-1.3) mg/dL Glucose (75-100) mg/dL POC Glucose 116 H (70-105) mg/dL Calcium (8.4-10.2) mg/dL Crossmatch
[2022-05-31] MEDS: ACETYLCYSTEINE 20% 200 MG/1 ML *FOR INHALATION USE INHALATION SCH (20:35)
[2022-05-31] MEDS: SENNOSIDES ORAL LIQD 8.8 MG/5 ML ORAL LIQD FEEDTUBE SCH (22:39)
[2022-06-01] MEDS: AVIBACTAM IV SCH ×3 (01:56→16:14)
[2022-06-01] MEDS: SODIUM CHLORIDE 0.9% IV SCH ×3 (01:56→16:14)
[2022-06-01] MEDS: CEFTAZIDIME IV SCH ×3 (01:56→16:14)
[2022-06-01 04:52] LABS: Hematocrit 23.3 % (35.5-45.6); Hemoglobin 7.6 gm/dl (11.8-15.2); Mean Corpuscular HGB Conc 33 % (32-34); Mean Corpuscular Volume 83 fl (84-94); Platelet Count 342 K/mm3 (140-440); Red Cell Distribution Width 17.8 % (13.2-15.2)
[2022-06-01] MEDS: HEPARIN 5,000 UNIT/1 ML VIAL SUB-Q SCH ×3 (06:08→21:02)
[2022-06-01] MEDS: fentaNYL 100 MCG/2 ML INJ IV PRN (06:08)
[2022-06-01] MEDS: INSULIN LISPRO 100 UNIT/ML SUB-Q SCH ×3 (06:09→21:13)
[2022-06-01] MEDS ORDERED: EPINEPHrine RACEMIC 2.25% 0.5ML NEBU IH ONE ×3 (07:48→09:30)
[2022-06-01] MEDS: ACETYLCYSTEINE 20% 200 MG/1 ML *FOR INHALATION USE INHALATION SCH ×3 (07:50→20:23)
[2022-06-01] MEDS: ALBUTEROL 2.5 MG/3 ML NEBU IH SCH ×2 (08:30→20:23)
[2022-06-01] MEDS: DOCUSATE SODIUM 100 MG/10 ML ORAL LIQD FEEDTUBE SCH ×2 (09:00→21:01)
[2022-06-01] MEDS: QUEtiapine 100 MG TAB FEEDTUBE SCH ×2 (09:01→21:01)
[2022-06-01] MEDS: BACLOFEN 10 MG TAB PO SCH ×3 (09:01→19:53)
[2022-06-01] MEDS: FAMOTIDINE 20 MG TAB FEEDTUBE SCH ×2 (09:01→21:02)
[2022-06-01] MEDS: METOPROLOL TARTRATE 25 MG TAB FEEDTUBE SCH ×2 (09:01→21:01)
[2022-06-01] MEDS: POLYETHYLENE GLYCOL 3350 17 GM POWDER FEEDTUBE SCH (09:01)
--- NOTE | 2022-06-01 11:22 | Progress Note ---
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 Protein calorie malnutrition Acute Bronchopneumonia HCAP Hypotension NSTEMI Hypernatremia Acute Metabolic Encephalopathy H/O Amyotrophic Lateral Sclerosis Nonverbal at Baseline Thrombocytopenia Protein Caloric Malnutrition Constipation - CXR without large volume atelectasis - to complete AB's on - continue care as below otherwise; - continue to wean supplemental oxygen for target O2 sat's > 90% acutely - continue Avycaz, de-escalate per ID recommendations (10 days) - continue wound care per RN/WCN/Surgeon - discharge planning ongoing concurrently - continue daily SAT and SBT assessment as tolerated while in hospital - continue to optimize nutritional status - bronchoscopy if develops large volume atelectasis - continue mucomyst nebs for thick tenacious secretions - continue scheduled CPT - continue Seroquel for anxiolysis / delirium - continue bronchodilators with pulmonary hygiene per RT - VAP bundle addressed - continue lung protective strategies - wean per pulmonary driven protocols otherwise - continue accuchecks with glycemic control per SSI (While critically ill target blood glucose of 140-180 mg/dL; avoid hypoglycemia) - sedation prn for target RASS 0 to -1 - avoid nephrotoxins, renally dose all medications - continue to avoid benzodiazepine's, reduce the possibility of delirium - AB's per ID rec's - prn analgesia per CPOT score - Maintenance of sleep-wake cycle, avoid delirium - continue enteral nutritional support at goal rate as tolerated - G.I. & VTE prophylaxis - PT/OT/ROM exercises - continue mobility protocols for pressure ulcer prophylaxis - Monitor hemodynamics closely - continue other care per attending / other consultants - discharge planning ongoing concurrently COVID SPECIFIC INTERVENTIONS - test negative .... Re-evaluate in am & prn CONDITION: CRITICAL PROGNOSIS: GUARDED CODE STATUS: FULL CODE The high probability of a clinically significant, sudden or life-threatening deterioration of the [respiratory, cardiovascular & neurologic] system(s) required my full and direct attention, intervention and personal management. The aggregate critical care time was [32] minutes without overlap. Time includes spent on; [x] Data Review and interpretation [x] Patient assessment and monitoring of vital signs [x] Documentation [x] Medication orders and management Subjective Date of service: 06/01/22 Principal diagnosis: Ac and ch hypercapnic and hypoxemic Resp Failure; ALS; HCAP; Sepsis; NSTEMI Interval history: Patient is seen today for: Acute and chronic hypercapnic and hypoxemic Respiratory Failure; ALS; HCAP; Sepsis; NSTEMI; AMS; Hypernatremia; Thrombocytopenia; Protein Caloric Malnutrition; Constipation Seen and examined at bedside; 24hour events reviewed; nursing and respiratory care staff consulted; no adverse overnight events reported to me; resting peacefully in bed; tolerating home ventilator better; flow down to 8L (40%) and peep at 10; no new issues; remains on Avycaz Objective Vital Signs - 12hr 05/31/22 05/31/22 05/31/22 23:25 23:31 23:50 Temperature 98.3 F Pulse Rate 84 Pulse Rate [ Bilateral Throughout] Pulse Rate [ From Monitor] Respiratory 12 Rate Respiratory Rate [Bilateral Throughout] Blood Pressure 102/67 O2 Sat by Pulse 100 Oximetry O2 Sat by Pulse 100 Oximetry [ Assessment] 06/01/22 06/01/22 06/01/22 00:00 01:00 02:00 Temperature Pulse Rate 77 74 60 Pulse Rate [ Bilateral Throughout] Pulse Rate [ From Monitor] Respiratory 14 15 15 Rate Respiratory Rate [Bilateral Throughout] Blood Pressure 95/59 93/62 93/62 O2 Sat by Pulse 96 98 100 Oximetry O2 Sat by Pulse Oximetry [ Assessment] 06/01/22 06/01/22 06/01/22 03:00 04:00 04:12 Temperature 99.2 F Pulse Rate 65 69 68 Pulse Rate [ Bilateral Throughout] Pulse Rate [ From Monitor] Respiratory 12 14 Rate Respiratory Rate [Bilateral Throughout] Blood Pressure 108/62 97/65 97/65 O2 Sat by Pulse 100 100 100 Oximetry O2 Sat by Pulse Oximetry [ Assessment] 06/01/22 06/01/22 06/01/22 05:00 06:00 07:00 Temperature Pulse Rate 86 90 72 Pulse Rate [ Bilateral Throughout] Pulse Rate [ From Monitor] Respiratory 10 L 13 14 Rate Respiratory Rate [Bilateral Throughout] Blood Pressure 85/66 103/68 94/65 O2 Sat by Pulse 100 98 96 Oximetry O2 Sat by Pulse Oximetry [ Assessment] 06/01/22 06/01/22 06/01/22 07:11 07:50 08:00 Temperature 97.8 F Pulse Rate 78 74 Pulse Rate [ 80 Bilateral Throughout] Pulse Rate [ 73 From Monitor] Respiratory 15 Rate Respiratory 14 Rate [Bilateral Throughout] Blood Pressure 94/65 97/60 O2 Sat by Pulse 100 100 Oximetry O2 Sat by Pulse 100 Oximetry [ Assessment] 06/01/22 06/01/22 06/01/22 09:00 09:01 10:00 Temperature Pulse Rate 85 90 102 H Pulse Rate [ Bilateral Throughout] Pulse Rate [ From Monitor] Respiratory 14 13 Rate Respiratory Rate [Bilateral Throughout] Blood Pressure 106/64 106/64 109/61 O2 Sat by Pulse 100 95 Oximetry O2 Sat by Pulse Oximetry [ Assessment] 06/01/22 06/01/22 11:00 11:08 Temperature Pulse Rate 108 H 106 H Pulse Rate [ Bilateral Throughout] Pulse Rate [ From Monitor] Respiratory 23 Rate Respiratory Rate [Bilateral Throughout] Blood Pressure 103/66 106/64 O2 Sat by Pulse 93 100 Oximetry O2 Sat by Pulse Oximetry [ Assessment] Constitutional: no acute distress, alert, other (resting in bed with normal respiratory effort at rest) Eyes: non-icteric ENT: oropharynx moist, other (+ midline tracheostomy to home vent) Neck: supple, no lymphadenopathy, no JVD Effort: mildly labored Ascultation: Bilateral: diminished breath sounds (bases), rhonchi Percussion: Bilateral: not dull Cardiovascular: regular rate and rhythm, other (S1,S2) Gastrointestinal: normoactive bowel sounds, soft, non-tender, non-distended Integumentary: normal, decubitus ulcer (see wound care pictures- wound vac) Extremities: no cyanosis, no edema, pink and warm, pulses normal Neurologic: pupils equal and round, other (functional quadriplegia) Psychiatric: mood appropriate, affect normal CBC and BMP: 06/01/22 04:14 05/31/22 04:55 ABG, PT/INR, D-dimer: ABG ABG pH 7.385 pH Units (7.350-7.450) 05/19/22 06:10 ABG pCO2 51.9 mm Hg 05/19/22 06:10 ABG pO2 70.5 mm Hg (80.0-90.0) L 05/19/22 06:10 ABG O2 Saturation 97.6 % (95.0-99.0) 05/19/22 06:10 PT/INR, D-dimer PT 13.6 Sec. (12.2-14.9) 04/13/22 04:30 INR 0.94 (0.87-1.13) 04/13/22 04:30 Abnormal lab findings: Abnormal Labs 04/02/22 04/02/22 04/02/22 19:39 19:39 19:39 WBC 14.3 H RBC Hgb Hct MCV 96 H MCH MCHC RDW Plt Count 104 L Lymph % (Auto) [place] % (Auto) Lymph # (Auto) [place] # (Auto) Seg Neutrophils % Seg Neuts % (Manual) 94.0 H Lymphocytes % (Manual) 1.0 L Seg Neutrophils # Seg Neutrophils # Man 13.4 H Lymphocytes # (Manual) 0.1 L PT 15.9 H INR 1.14 H ABG pH ABG pO2 ABG HCO3 ABG O2 Saturation ABG Base Excess ABG Hemoglobin Oxyhemoglobin Sodium 151 H Potassium Chloride Carbon Dioxide BUN Creatinine 0.5 L Glucose POC Glucose Calcium 8.2 L Phosphorus Magnesium 1.60 L Total Creatine Kinase CK-MB (CK-2) Rel Index Troponin T 0.048 H C-Reactive Protein Total Protein 4.6 L Albumin 2.7 L LDL Cholesterol Direct 27 L Urine WBC (Auto) Crossmatch 04/02/22 04/03/22 04/03/22 19:42 05:14 06:30 WBC RBC Hgb Hct MCV MCH MCHC RDW Plt Count Lymph % (Auto) [place] % (Auto) Lymph # (Auto) [place] # (Auto) Seg Neutrophils % Seg Neuts % (Manual) Lymphocytes % (Manual) Seg Neutrophils # Seg Neutrophils # Man Lymphocytes # (Manual) PT INR ABG pH 7.471 H 7.496 H ABG pO2 47.8 L 91.0 H ABG HCO3 30.6 H ABG O2 Saturation 94.4 L ABG Base Excess 6.2 H ABG Hemoglobin 11.0 L 12.8 L Oxyhemoglobin 93.1 L Sodium 149 H Potassium 3.4 L Chloride Carbon Dioxide BUN Creatinine 0.4 L Glucose POC Glucose Calcium Phosphorus Magnesium Total Creatine Kinase CK-MB (CK-2) Rel Index Troponin T C-Reactive Protein Total Protein Albumin LDL Cholesterol Direct Urine WBC (Auto) Crossmatch 04/04/22 04/04/22 04/04/22 04:18 04:18 05:50 WBC 11.8 H RBC Hgb Hct MCV MCH MCHC RDW Plt Count 132 L Lymph % (Auto) [place] % (Auto) Lymph # (Auto) [place] # (Auto) Seg Neutrophils % Seg Neuts % (Manual) Lymphocytes % (Manual) Seg Neutrophils # Seg Neutrophils # Man Lymphocytes # (Manual) PT INR ABG pH 7.517 H ABG pO2 115.5 H ABG HCO3 29.9 H ABG O2 Saturation ABG Base Excess 6.7 H ABG Hemoglobin 12.3 L Oxyhemoglobin Sodium Potassium 3.5 L Chloride Carbon Dioxide 31 H BUN Creatinine 0.3 L Glucose 153 H POC Glucose Calcium Phosphorus 1.40 L Magnesium 1.50 L Total Creatine Kinase CK-MB (CK-2) Rel Index Troponin T C-Reactive Protein 31.60 H Total Protein Albumin LDL Cholesterol Direct Urine WBC (Auto) Crossmatch 04/05/22 04/05/22 04/05/22 02:50 05:25 11:28 WBC RBC Hgb Hct MCV MCH MCHC RDW Plt Count Lymph % (Auto) [place] % (Auto) Lymph # (Auto) [place] # (Auto) Seg Neutrophils % Seg Neuts % (Manual) Lymphocytes % (Manual) Seg Neutrophils # Seg Neutrophils # Man Lymphocytes # (Manual) PT INR ABG pH 7.455 H ABG pO2 50.7 L ABG HCO3 30.5 H ABG O2 Saturation 89.4 L ABG Base Excess 5.9 H ABG Hemoglobin 11.8 L Oxyhemoglobin 88.2 L Sodium Potassium Chloride Carbon Dioxide 32 H BUN Creatinine 0.2 L Glucose 110 H POC Glucose 124 H Calcium 7.9 L Phosphorus Magnesium Total Creatine Kinase CK-MB (CK-2) Rel Index Troponin T C-Reactive Protein Total Protein Albumin LDL Cholesterol Direct Urine WBC (Auto) Crossmatch 04/05/22 04/05/22 04/06/22 17:45 Unknown 04:00 WBC RBC 3.55 L Hgb 11.1 L 11.5 L Hct 33.2 L 35.1 L MCV MCH MCHC RDW Plt Count 113 L 114 L Lymph % (Auto) [place] % (Auto) Lymph # (Auto) [place] # (Auto) Seg Neutrophils % Seg Neuts % (Manual) Lymphocytes % (Manual) Seg Neutrophils # Seg Neutrophils # Man Lymphocytes # (Manual) PT INR ABG pH ABG pO2 ABG HCO3 ABG O2 Saturation ABG Base Excess ABG Hemoglobin Oxyhemoglobin Sodium Potassium Chloride Carbon Dioxide BUN Creatinine Glucose POC Glucose Calcium Phosphorus Magnesium Total Creatine Kinase CK-MB (CK-2) Rel Index Troponin T C-Reactive Protein Total Protein Albumin LDL Cholesterol Direct Urine WBC (Auto) 8.0 H Crossmatch 04/06/22 04/06/22 04/07/22 04:00 08:30 00:04 WBC RBC Hgb Hct MCV MCH MCHC RDW Plt Count Lymph % (Auto) [place] % (Auto) Lymph # (Auto) [place] # (Auto) Seg Neutrophils % Seg Neuts % (Manual) Lymphocytes % (Manual) Seg Neutrophils # Seg Neutrophils # Man Lymphocytes # (Manual) PT INR ABG pH ABG pO2 60.8 L ABG HCO3 30.5 H ABG O2 Saturation 93.3 L ABG Base Excess 4.9 H ABG Hemoglobin 12.4 L Oxyhemoglobin 92.1 L Sodium Potassium 3.0 L Chloride Carbon Dioxide BUN Creatinine < 0.2 L Glucose 130 H POC Glucose 117 H Calcium 8.1 L Phosphorus Magnesium Total Creatine Kinase CK-MB (CK-2) Rel Index Troponin T C-Reactive Protein Total Protein Albumin LDL Cholesterol Direct Urine WBC (Auto) Crossmatch 04/07/22 04/07/22 04/07/22 03:51 03:51 03:51 WBC 14.6 H RBC 3.57 L Hgb 11.1 L Hct 33.2 L MCV MCH MCHC RDW Plt Count 118 L Lymph % (Auto) 4.3 L [place] % (Auto) 8.8 H Lymph # (Auto) 0.6 L [place] # (Auto) 1.3 H Seg Neutrophils % 86.6 H Seg Neuts % (Manual) Lymphocytes % (Manual) Seg Neutrophils # 12.7 H Seg Neutrophils # Man Lymphocytes # (Manual) PT 15.2 H INR ABG pH ABG pO2 ABG HCO3 ABG O2 Saturation ABG Base Excess ABG Hemoglobin Oxyhemoglobin Sodium 133 L Potassium Chloride 96.0 L Carbon Dioxide 31 H BUN Creatinine 0.2 L Glucose 130 H POC Glucose Calcium 8.0 L Phosphorus Magnesium Total Creatine Kinase CK-MB (CK-2) Rel Index Troponin T C-Reactive Protein Total Protein Albumin LDL Cholesterol Direct Urine WBC (Auto) Crossmatch 04/07/22 04/07/22 04/08/22 04:25 09:10 04:49 WBC 16.1 H RBC 3.54 L Hgb 10.9 L Hct 33.3 L MCV MCH MCHC RDW Plt Count Lymph % (Auto) [place] % (Auto) Lymph # (Auto) [place] # (Auto) Seg Neutrophils % Seg Neuts % (Manual) Lymphocytes % (Manual) Seg Neutrophils # Seg Neutrophils # Man Lymphocytes # (Manual) PT INR ABG pH ABG pO2 71.0 L 63.4 L ABG HCO3 31.5 H 40.0 H ABG O2 Saturation 94.9 L ABG Base Excess 5.9 H 13.6 H ABG Hemoglobin 11.3 L 9.0 L Oxyhemoglobin 93.6 L Sodium Potassium Chloride Carbon Dioxide BUN Creatinine Glucose POC Glucose Calcium Phosphorus Magnesium Total Creatine Kinase CK-MB (CK-2) Rel Index Troponin T C-Reactive Protein Total Protein Albumin LDL Cholesterol Direct Urine WBC (Auto) Crossmatch 04/08/22 04/08/22 04/08/22 04:49 09:53 10:25 WBC RBC Hgb Hct MCV MCH MCHC RDW Plt Count Lymph % (Auto) [place] % (Auto) Lymph # (Auto) [place] # (Auto) Seg Neutrophils % Seg Neuts % (Manual) Lymphocytes % (Manual) Seg Neutrophils # Seg Neutrophils # Man Lymphocytes # (Manual) PT INR ABG pH ABG pO2 ABG HCO3 34.7 H ABG O2 Saturation ABG Base Excess 7.9 H ABG Hemoglobin 11.0 L Oxyhemoglobin Sodium 136 L Potassium Chloride 97.7 L Carbon Dioxide 33 H BUN Creatinine 0.2 L Glucose 155 H POC Glucose Calcium Phosphorus Magnesium Total Creatine Kinase CK-MB (CK-2) Rel Index Troponin T 0.030 H C-Reactive Protein Total Protein Albumin LDL Cholesterol Direct Urine WBC (Auto) Crossmatch 04/08/22 04/08/22 04/08/22 11:19 17:47 18:06 WBC RBC Hgb Hct MCV MCH MCHC RDW Plt Count Lymph % (Auto) [place] % (Auto) Lymph # (Auto) [place] # (Auto) Seg Neutrophils % Seg Neuts % (Manual) Lymphocytes % (Manual) Seg Neutrophils # Seg Neutrophils # Man Lymphocytes # (Manual) PT INR ABG pH ABG pO2 ABG HCO3 ABG O2 Saturation ABG Base Excess ABG Hemoglobin Oxyhemoglobin Sodium Potassium Chloride Carbon Dioxide BUN Creatinine Glucose POC Glucose 121 H Calcium Phosphorus Magnesium Total Creatine Kinase 31 L 46 L CK-MB (CK-2) Rel Index 6.4 H 5.6 H Troponin T 0.030 H 0.031 H C-Reactive Protein Total Protein Albumin LDL Cholesterol Direct Urine WBC (Auto) Crossmatch 04/09/22 04/09/22 04/09/22 04:35 04:35 11:24 WBC 11.5 H RBC 3.16 L Hgb 9.9 L Hct 29.4 L MCV MCH MCHC RDW Plt Count 131 L Lymph % (Auto) [place] % (Auto) Lymph # (Auto) [place] # (Auto) Seg Neutrophils % Seg Neuts % (Manual) Lymphocytes % (Manual) Seg Neutrophils # Seg Neutrophils # Man Lymphocytes # (Manual) PT INR ABG pH ABG pO2 ABG HCO3 ABG O2 Saturation ABG Base Excess ABG Hemoglobin Oxyhemoglobin Sodium Potassium Chloride 97.1 L Carbon Dioxide 35 H BUN Creatinine < 0.2 L Glucose 145 H POC Glucose 147 H Calcium Phosphorus Magnesium Total Creatine Kinase CK-MB (CK-2) Rel Index Troponin T C-Reactive Protein Total Protein Albumin LDL Cholesterol Direct Urine WBC (Auto) Crossmatch 04/09/22 04/09/22 04/09/22 13:00 17:32 23:48 WBC RBC Hgb Hct MCV MCH MCHC RDW Plt Count Lymph % (Auto) [place] % (Auto) Lymph # (Auto) [place] # (Auto) Seg Neutrophils % Seg Neuts % (Manual) Lymphocytes % (Manual) Seg Neutrophils # Seg Neutrophils # Man Lymphocytes # (Manual) PT INR ABG pH ABG pO2 66.6 L ABG HCO3 38.2 H ABG O2 Saturation 94.4 L ABG Base Excess 10.7 H ABG Hemoglobin 10.7 L Oxyhemoglobin 92.8 L Sodium Potassium Chloride Carbon Dioxide BUN Creatinine Glucose POC Glucose 143 H 114 H Calcium Phosphorus Magnesium Total Creatine Kinase CK-MB (CK-2) Rel Index Troponin T C-Reactive Protein Total Protein Albumin LDL Cholesterol Direct Urine WBC (Auto) Crossmatch 04/10/22 04/10/22 04/10/22 04:48 04:48 05:34 WBC RBC 2.91 L Hgb 9.1 L Hct 27.7 L MCV 95 H MCH MCHC RDW Plt Count Lymph % (Auto) [place] % (Auto) Lymph # (Auto) [place] # (Auto) Seg Neutrophils % Seg Neuts % (Manual) Lymphocytes % (Manual) Seg Neutrophils # Seg Neutrophils # Man Lymphocytes # (Manual) PT INR ABG pH ABG pO2 ABG HCO3 ABG O2 Saturation ABG Base Excess ABG Hemoglobin Oxyhemoglobin Sodium Potassium Chloride 95.7 L Carbon Dioxide 38 H BUN Creatinine < 0.2 L Glucose 118 H POC Glucose 127 H Calcium Phosphorus Magnesium Total Creatine Kinase CK-MB (CK-2) Rel Index Troponin T C-Reactive Protein Total Protein Albumin LDL Cholesterol Direct Urine WBC (Auto) Crossmatch 04/10/22 04/11/22 04/11/22 23:10 04:15 04:15 WBC 17.2 H RBC 2.98 L Hgb 9.2 L Hct 27.9 L MCV MCH MCHC RDW Plt Count Lymph % (Auto) [place] % (Auto) Lymph # (Auto) [place] # (Auto) Seg Neutrophils % Seg Neuts % (Manual) Lymphocytes % (Manual) Seg Neutrophils # Seg Neutrophils # Man Lymphocytes # (Manual) PT INR ABG pH ABG pO2 ABG HCO3 ABG O2 Saturation ABG Base Excess ABG Hemoglobin Oxyhemoglobin Sodium Potassium Chloride 96.1 L Carbon Dioxide 35 H BUN Creatinine < 0.2 L Glucose 138 H POC Glucose 106 H Calcium 8.3 L Phosphorus Magnesium Total Creatine Kinase CK-MB (CK-2) Rel Index Troponin T C-Reactive Protein Total Protein Albumin LDL Cholesterol Direct Urine WBC (Auto) Crossmatch 04/11/22 04/11/22 04/11/22 05:31 13:18 16:20 WBC RBC Hgb Hct MCV MCH MCHC RDW Plt Count Lymph % (Auto) [place] % (Auto) Lymph # (Auto) [place] # (Auto) Seg Neutrophils % Seg Neuts % (Manual) Lymphocytes % (Manual) Seg Neutrophils # Seg Neutrophils # Man Lymphocytes # (Manual) PT INR ABG pH ABG pO2 57.8 L ABG HCO3 40.5 H ABG O2 Saturation 90.6 L ABG Base Excess 12.6 H ABG Hemoglobin 10.5 L Oxyhemoglobin 89.0 L Sodium Potassium Chloride Carbon Dioxide BUN Creatinine Glucose POC Glucose 129 H 132 H Calcium Phosphorus Magnesium Total Creatine Kinase CK-MB (CK-2) Rel Index Troponin T C-Reactive Protein Total Protein Albumin LDL Cholesterol Direct Urine WBC (Auto) Crossmatch 04/11/22 04/11/22 04/12/22 17:29 23:17 04:00 WBC 17.4 H RBC 2.96 L Hgb 9.0 L Hct 28.0 L MCV 95 H MCH MCHC RDW Plt Count Lymph % (Auto) [place] % (Auto) Lymph # (Auto) [place] # (Auto) Seg Neutrophils % Seg Neuts % (Manual) Lymphocytes % (Manual) Seg Neutrophils # Seg Neutrophils # Man Lymphocytes # (Manual) PT INR ABG pH ABG pO2 ABG HCO3 ABG O2 Saturation ABG Base Excess ABG Hemoglobin Oxyhemoglobin Sodium Potassium Chloride Carbon Dioxide BUN Creatinine Glucose POC Glucose 125 H 151 H Calcium Phosphorus Magnesium Total Creatine Kinase CK-MB (CK-2) Rel Index Troponin T C-Reactive Protein Total Protein Albumin LDL Cholesterol Direct Urine WBC (Auto) Crossmatch 04/12/22 04/12/22 04/12/22 04:00 17:03 23:39 WBC RBC Hgb Hct MCV MCH MCHC RDW Plt Count Lymph % (Auto) [place] % (Auto) Lymph # (Auto) [place] # (Auto) Seg Neutrophils % Seg Neuts % (Manual) Lymphocytes % (Manual) Seg Neutrophils # Seg Neutrophils # Man Lymphocytes # (Manual) PT INR ABG pH ABG pO2 ABG HCO3 ABG O2 Saturation ABG Base Excess ABG Hemoglobin Oxyhemoglobin Sodium Potassium Chloride 97.4 L Carbon Dioxide 37 H BUN Creatinine < 0.2 L Glucose 127 H POC Glucose 106 H 107 H Calcium Phosphorus Magnesium Total Creatine Kinase CK-MB (CK-2) Rel Index Troponin T C-Reactive Protein Total Protein Albumin LDL Cholesterol Direct Urine WBC (Auto) Crossmatch 04/13/22 04/13/22 04/13/22 04:30 04:30 17:39 WBC 14.1 H RBC 2.66 L Hgb 8.4 L Hct 25.5 L MCV 96 H MCH MCHC RDW Plt Count Lymph % (Auto) [place] % (Auto) Lymph # (Auto) [place] # (Auto) Seg Neutrophils % Seg Neuts % (Manual) Lymphocytes % (Manual) Seg Neutrophils # Seg Neutrophils # Man Lymphocytes # (Manual) PT INR ABG pH ABG pO2 ABG HCO3 ABG O2 Saturation ABG Base Excess ABG Hemoglobin Oxyhemoglobin Sodium Potassium Chloride 93.9 L Carbon Dioxide 39 H BUN Creatinine < 0.2 L Glucose POC Glucose 134 H Calcium Phosphorus 1.90 L Magnesium Total Creatine Kinase CK-MB (CK-2) Rel Index Troponin T C-Reactive Protein Total Protein Albumin LDL Cholesterol Direct Urine WBC (Auto) Crossmatch 04/14/22 04/14/22 04/14/22 05:03 05:03 09:10 WBC 15.6 H RBC 3.02 L Hgb 9.3 L Hct 28.8 L MCV 95 H MCH MCHC RDW Plt Count Lymph % (Auto) [place] % (Auto) Lymph # (Auto) [place] # (Auto) Seg Neutrophils % Seg Neuts % (Manual) Lymphocytes % (Manual) Seg Neutrophils # Seg Neutrophils # Man Lymphocytes # (Manual) PT INR ABG pH ABG pO2 66.9 L ABG HCO3 44.5 H ABG O2 Saturation ABG Base Excess 17.2 H ABG Hemoglobin 8.1 L Oxyhemoglobin 94.8 L Sodium Potassium Chloride 93.8 L Carbon Dioxide 42 H* BUN Creatinine < 0.2 L Glucose 117 H POC Glucose Calcium Phosphorus Magnesium Total Creatine Kinase CK-MB (CK-2) Rel Index Troponin T C-Reactive Protein Total Protein Albumin LDL Cholesterol Direct Urine WBC (Auto) Crossmatch 04/15/22 04/15/22 04/16/22 04:44 04:44 04:16 WBC 13.0 H 12.6 H RBC 3.19 L 3.09 L Hgb 9.6 L 9.5 L Hct 30.2 L 29.1 L MCV 95 H MCH MCHC RDW Plt Count 456 H Lymph % (Auto) [place] % (Auto) Lymph # (Auto) [place] # (Auto) Seg Neutrophils % Seg Neuts % (Manual) Lymphocytes % (Manual) Seg Neutrophils # Seg Neutrophils # Man Lymphocytes # (Manual) PT INR ABG pH ABG pO2 ABG HCO3 ABG O2 Saturation ABG Base Excess ABG Hemoglobin Oxyhemoglobin Sodium Potassium Chloride 95.5 L Carbon Dioxide 37 H BUN Creatinine < 0.2 L Glucose POC Glucose Calcium Phosphorus Magnesium Total Creatine Kinase CK-MB (CK-2) Rel Index Troponin T C-Reactive Protein Total Protein Albumin LDL Cholesterol Direct Urine WBC (Auto) Crossmatch 04/16/22 04/16/22 04/16/22 04:16 05:00 14:00 WBC RBC Hgb Hct MCV MCH MCHC RDW Plt Count Lymph % (Auto) [place] % (Auto) Lymph # (Auto) [place] # (Auto) Seg Neutrophils % Seg Neuts % (Manual) Lymphocytes % (Manual) Seg Neutrophils # Seg Neutrophils # Man Lymphocytes # (Manual) PT INR ABG pH 7.324 L ABG pO2 55.6 L ABG HCO3 45.3 H ABG O2 Saturation 87.1 L ABG Base Excess 16.6 H ABG Hemoglobin 8.6 L Oxyhemoglobin 85.7 L Sodium Potassium Chloride 97.6 L Carbon Dioxide 36 H BUN Creatinine < 0.2 L Glucose 109 H POC Glucose 120 H Calcium Phosphorus Magnesium Total Creatine Kinase CK-MB (CK-2) Rel Index Troponin T C-Reactive Protein Total Protein Albumin LDL Cholesterol Direct Urine WBC (Auto) Crossmatch 04/17/22 04/17/22 04/17/22 04:36 04:36 04:57 WBC 14.4 H RBC 3.08 L Hgb 9.4 L Hct 29.0 L MCV MCH MCHC RDW Plt Count Lymph % (Auto) [place] % (Auto) Lymph # (Auto) [place] # (Auto) Seg Neutrophils % Seg Neuts % (Manual) Lymphocytes % (Manual) Seg Neutrophils # Seg Neutrophils # Man Lymphocytes # (Manual) PT INR ABG pH ABG pO2 ABG HCO3 ABG O2 Saturation ABG Base Excess ABG Hemoglobin Oxyhemoglobin Sodium Potassium Chloride 95.9 L Carbon Dioxide 39 H BUN Creatinine < 0.2 L Glucose 140 H POC Glucose 137 H Calcium 8.3 L Phosphorus Magnesium Total Creatine Kinase CK-MB (CK-2) Rel Index Troponin T C-Reactive Protein Total Protein Albumin LDL Cholesterol Direct Urine WBC (Auto) Crossmatch 04/17/22 04/17/22 04/18/22 09:15 18:01 04:20 WBC 11.2 H RBC 3.00 L Hgb 9.3 L Hct 28.6 L MCV 95 H MCH MCHC RDW Plt Count Lymph % (Auto) [place] % (Auto) Lymph # (Auto) [place] # (Auto) Seg Neutrophils % Seg Neuts % (Manual) Lymphocytes % (Manual) Seg Neutrophils # Seg Neutrophils # Man Lymphocytes # (Manual) PT INR ABG pH 7.345 L ABG pO2 ABG HCO3 48.2 H ABG O2 Saturation ABG Base Excess 19.2 H ABG Hemoglobin 9.7 L Oxyhemoglobin Sodium Potassium Chloride Carbon Dioxide BUN Creatinine Glucose POC Glucose 129 H Calcium Phosphorus Magnesium Total Creatine Kinase CK-MB (CK-2) Rel Index Troponin T C-Reactive Protein Total Protein Albumin LDL Cholesterol Direct Urine WBC (Auto) Crossmatch 04/18/22 04/18/22 04/18/22 04:20 17:35 23:50 WBC RBC Hgb Hct MCV MCH MCHC RDW Plt Count Lymph % (Auto) [place] % (Auto) Lymph # (Auto) [place] # (Auto) Seg Neutrophils % Seg Neuts % (Manual) Lymphocytes % (Manual) Seg Neutrophils # Seg Neutrophils # Man Lymphocytes # (Manual) PT INR ABG pH ABG pO2 ABG HCO3 ABG O2 Saturation ABG Base Excess ABG Hemoglobin Oxyhemoglobin Sodium Potassium Chloride 96.8 L Carbon Dioxide 43 H* BUN 22 H Creatinine < 0.2 L Glucose 137 H POC Glucose 128 H 123 H Calcium 8.2 L Phosphorus Magnesium Total Creatine Kinase CK-MB (CK-2) Rel Index Troponin T C-Reactive Protein Total Protein Albumin LDL Cholesterol Direct Urine WBC (Auto) Crossmatch 04/19/22 04/19/22 04/19/22 04:08 04:08 08:50 WBC 16.8 H RBC 3.18 L Hgb 9.8 L Hct 30.1 L MCV 95 H MCH MCHC RDW Plt Count Lymph % (Auto) [place] % (Auto) Lymph # (Auto) [place] # (Auto) Seg Neutrophils % Seg Neuts % (Manual) Lymphocytes % (Manual) Seg Neutrophils # Seg Neutrophils # Man Lymphocytes # (Manual) PT INR ABG pH ABG pO2 56.0 L ABG HCO3 47.1 H ABG O2 Saturation 93.3 L ABG Base Excess 20.1 H ABG Hemoglobin 8.0 L Oxyhemoglobin 91.8 L Sodium Potassium Chloride 96.2 L Carbon Dioxide 40 H BUN 24 H Creatinine < 0.2 L Glucose 125 H POC Glucose Calcium 8.3 L Phosphorus Magnesium Total Creatine Kinase CK-MB (CK-2) Rel Index Troponin T C-Reactive Protein Total Protein Albumin LDL Cholesterol Direct Urine WBC (Auto) Crossmatch 04/19/22 04/20/22 04/20/22 12:02 00:40 04:49 WBC 14.7 H RBC 3.36 L Hgb 10.3 L Hct 32.0 L MCV 95 H MCH MCHC RDW Plt Count Lymph % (Auto) [place] % (Auto) Lymph # (Auto) [place] # (Auto) Seg Neutrophils % Seg Neuts % (Manual) Lymphocytes % (Manual) Seg Neutrophils # Seg Neutrophils # Man Lymphocytes # (Manual) PT INR ABG pH ABG pO2 ABG HCO3 ABG O2 Saturation ABG Base Excess ABG Hemoglobin Oxyhemoglobin Sodium Potassium Chloride Carbon Dioxide BUN Creatinine Glucose POC Glucose 124 H 140 H Calcium Phosphorus Magnesium Total Creatine Kinase CK-MB (CK-2) Rel Index Troponin T C-Reactive Protein Total Protein Albumin LDL Cholesterol Direct Urine WBC (Auto) Crossmatch 04/20/22 04/20/22 04/21/22 05:36 11:40 04:05 WBC RBC Hgb Hct MCV MCH MCHC RDW Plt Count Lymph % (Auto) [place] % (Auto) Lymph # (Auto) [place] # (Auto) Seg Neutrophils % Seg Neuts % (Manual) Lymphocytes % (Manual) Seg Neutrophils # Seg Neutrophils # Man Lymphocytes # (Manual) PT INR ABG pH ABG pO2 ABG HCO3 ABG O2 Saturation ABG Base Excess ABG Hemoglobin Oxyhemoglobin Sodium Potassium Chloride 93.4 L Carbon Dioxide 40 H BUN 25 H Creatinine < 0.2 L Glucose 122 H POC Glucose 125 H 128 H Calcium Phosphorus Magnesium Total Creatine Kinase CK-MB (CK-2) Rel Index Troponin T C-Reactive Protein Total Protein Albumin LDL Cholesterol Direct Urine WBC (Auto) Crossmatch 04/21/22 04/22/22 04/22/22 10:31 05:03 05:03 WBC 12.6 H 12.7 H RBC 2.83 L 2.96 L Hgb 8.6 L 9.0 L Hct 26.9 L 28.0 L MCV 95 H 95 H MCH MCHC RDW Plt Count Lymph % (Auto) [place] % (Auto) Lymph # (Auto) [place] # (Auto) Seg Neutrophils % Seg Neuts % (Manual) Lymphocytes % (Manual) Seg Neutrophils # Seg Neutrophils # Man Lymphocytes # (Manual) PT INR ABG pH ABG pO2 ABG HCO3 ABG O2 Saturation ABG Base Excess ABG Hemoglobin Oxyhemoglobin Sodium Potassium Chloride 93.9 L Carbon Dioxide 43 H* BUN 23 H Creatinine < 0.2 L Glucose 137 H POC Glucose Calcium Phosphorus Magnesium Total Creatine Kinase CK-MB (CK-2) Rel Index Troponin T C-Reactive Protein Total Protein Albumin LDL Cholesterol Direct Urine WBC (Auto) Crossmatch 04/22/22 04/23/22 04/24/22 08:34 09:40 04:29 WBC 14.4 H RBC 2.74 L Hgb 8.4 L Hct 25.7 L MCV MCH MCHC RDW Plt Count Lymph % (Auto) [place] % (Auto) Lymph # (Auto) [place] # (Auto) Seg Neutrophils % Seg Neuts % (Manual) Lymphocytes % (Manual) Seg Neutrophils # Seg Neutrophils # Man Lymphocytes # (Manual) PT INR ABG pH ABG pO2 54.1 L 56.8 L ABG HCO3 48.5 H 49.0 H ABG O2 Saturation 92.1 L 90.9 L ABG Base Excess 20.9 H 20.8 H ABG Hemoglobin 9.0 L 8.4 L Oxyhemoglobin 90.6 L 89.5 L Sodium Potassium Chloride Carbon Dioxide BUN Creatinine Glucose POC Glucose Calcium Phosphorus Magnesium Total Creatine Kinase CK-MB (CK-2) Rel Index Troponin T C-Reactive Protein Total Protein Albumin LDL Cholesterol Direct Urine WBC (Auto) Crossmatch 04/24/22 04/25/22 04/26/22 04:29 09:00 04:22 WBC RBC 2.88 L Hgb 8.9 L Hct 26.8 L MCV MCH MCHC RDW Plt Count Lymph % (Auto) [place] % (Auto) Lymph # (Auto) [place] # (Auto) Seg Neutrophils % Seg Neuts % (Manual) Lymphocytes % (Manual) Seg Neutrophils # Seg Neutrophils # Man Lymphocytes # (Manual) PT INR ABG pH 7.457 H ABG pO2 66.7 L ABG HCO3 42.6 H ABG O2 Saturation ABG Base Excess 15.3 H ABG Hemoglobin 8.8 L Oxyhemoglobin 94.1 L Sodium Potassium Chloride 90.7 L Carbon Dioxide 40 H BUN Creatinine < 0.2 L Glucose 133 H POC Glucose Calcium Phosphorus Magnesium Total Creatine Kinase CK-MB (CK-2) Rel Index Troponin T C-Reactive Protein Total Protein Albumin LDL Cholesterol Direct Urine WBC (Auto) Crossmatch 04/26/22 04/29/22 04/29/22 04:22 04:18 04:18 WBC 13.5 H RBC 2.96 L Hgb 8.9 L Hct 27.7 L MCV MCH MCHC RDW Plt Count Lymph % (Auto) [place] % (Auto) Lymph # (Auto) [place] # (Auto) Seg Neutrophils % Seg Neuts % (Manual) Lymphocytes % (Manual) Seg Neutrophils # Seg Neutrophils # Man Lymphocytes # (Manual) PT INR ABG pH ABG pO2 ABG HCO3 ABG O2 Saturation ABG Base Excess ABG Hemoglobin Oxyhemoglobin Sodium Potassium Chloride 93.2 L 95.2 L Carbon Dioxide 37 H 38 H BUN Creatinine < 0.2 L < 0.2 L Glucose 114 H 116 H POC Glucose Calcium Phosphorus Magnesium Total Creatine Kinase CK-MB (CK-2) Rel Index Troponin T C-Reactive Protein Total Protein Albumin LDL Cholesterol Direct Urine WBC (Auto) Crossmatch 05/02/22 05/03/22 05/03/22 04:29 04:02 04:02 WBC 12.9 H 12.3 H RBC 2.82 L 2.83 L Hgb 8.4 L 8.4 L Hct 26.2 L 26.0 L MCV MCH MCHC RDW Plt Count Lymph % (Auto) [place] % (Auto) Lymph # (Auto) [place] # (Auto) Seg Neutrophils % Seg Neuts % (Manual) Lymphocytes % (Manual) Seg Neutrophils # Seg Neutrophils # Man Lymphocytes # (Manual) PT INR ABG pH ABG pO2 ABG HCO3 ABG O2 Saturation ABG Base Excess ABG Hemoglobin Oxyhemoglobin Sodium 134 L Potassium Chloride 90.5 L Carbon Dioxide 38 H BUN 21 H Creatinine < 0.2 L Glucose 126 H POC Glucose Calcium Phosphorus Magnesium Total Creatine Kinase CK-MB (CK-2) Rel Index Troponin T C-Reactive Protein Total Protein Albumin LDL Cholesterol Direct Urine WBC (Auto) Crossmatch 05/03/22 05/03/22 05/04/22 12:02 17:42 09:36 WBC RBC Hgb Hct MCV MCH MCHC RDW Plt Count Lymph % (Auto) [place] % (Auto) Lymph # (Auto) [place] # (Auto) Seg Neutrophils % Seg Neuts % (Manual) Lymphocytes % (Manual) Seg Neutrophils # Seg Neutrophils # Man Lymphocytes # (Manual) PT INR ABG pH ABG pO2 55.4 L ABG HCO3 43.7 H ABG O2 Saturation 87.4 L ABG Base Excess 16.1 H ABG Hemoglobin 9.1 L Oxyhemoglobin 85.7 L Sodium Potassium Chloride Carbon Dioxide BUN Creatinine Glucose POC Glucose 139 H 131 H Calcium Phosphorus Magnesium Total Creatine Kinase CK-MB (CK-2) Rel Index Troponin T C-Reactive Protein Total Protein Albumin LDL Cholesterol Direct Urine WBC (Auto) Crossmatch 05/04/22 05/04/22 05/05/22 17:08 23:10 04:23 WBC 14.4 H RBC 2.75 L Hgb 8.2 L Hct 25.2 L MCV MCH MCHC RDW Plt Count Lymph % (Auto) [place] % (Auto) Lymph # (Auto) [place] # (Auto) Seg Neutrophils % Seg Neuts % (Manual) Lymphocytes % (Manual) Seg Neutrophils # Seg Neutrophils # Man Lymphocytes # (Manual) PT INR ABG pH ABG pO2 ABG HCO3 ABG O2 Saturation ABG Base Excess ABG Hemoglobin Oxyhemoglobin Sodium Potassium Chloride Carbon Dioxide BUN Creatinine Glucose POC Glucose 124 H 115 H Calcium Phosphorus Magnesium Total Creatine Kinase CK-MB (CK-2) Rel Index Troponin T C-Reactive Protein Total Protein Albumin LDL Cholesterol Direct Urine WBC (Auto) Crossmatch 05/05/22 05/05/22 05/06/22 04:23 21:39 05:13 WBC RBC Hgb Hct MCV MCH MCHC RDW Plt Count Lymph % (Auto) [place] % (Auto) Lymph # (Auto) [place] # (Auto) Seg Neutrophils % Seg Neuts % (Manual) Lymphocytes % (Manual) Seg Neutrophils # Seg Neutrophils # Man Lymphocytes # (Manual) PT INR ABG pH ABG pO2 ABG HCO3 ABG O2 Saturation ABG Base Excess ABG Hemoglobin Oxyhemoglobin Sodium Potassium Chloride 91.3 L Carbon Dioxide 38 H BUN 23 H Creatinine < 0.2 L Glucose 128 H POC Glucose 141 H 136 H Calcium Phosphorus Magnesium Total Creatine Kinase CK-MB (CK-2) Rel Index Troponin T C-Reactive Protein Total Protein Albumin LDL Cholesterol Direct Urine WBC (Auto) Crossmatch 05/07/22 05/07/22 05/08/22 05:29 22:15 05:48 WBC RBC Hgb Hct MCV MCH MCHC RDW Plt Count Lymph % (Auto) [place] % (Auto) Lymph # (Auto) [place] # (Auto) Seg Neutrophils % Seg Neuts % (Manual) Lymphocytes % (Manual) Seg Neutrophils # Seg Neutrophils # Man Lymphocytes # (Manual) PT INR ABG pH ABG pO2 ABG HCO3 ABG O2 Saturation ABG Base Excess ABG Hemoglobin Oxyhemoglobin Sodium Potassium Chloride Carbon Dioxide BUN Creatinine Glucose POC Glucose 125 H 142 H 122 H Calcium Phosphorus Magnesium Total Creatine Kinase CK-MB (CK-2) Rel Index Troponin T C-Reactive Protein Total Protein Albumin LDL Cholesterol Direct Urine WBC (Auto) Crossmatch 05/08/22 05/08/22 05/09/22 14:04 21:48 15:15 WBC RBC 2.61 L Hgb 7.7 L Hct 23.2 L MCV MCH MCHC RDW Plt Count Lymph % (Auto) 8.1 L [place] % (Auto) Lymph # (Auto) 0.9 L [place] # (Auto) Seg Neutrophils % 86.1 H Seg Neuts % (Manual) Lymphocytes % (Manual) Seg Neutrophils # 9.2 H Seg Neutrophils # Man Lymphocytes # (Manual) PT INR ABG pH ABG pO2 ABG HCO3 ABG O2 Saturation ABG Base Excess ABG Hemoglobin Oxyhemoglobin Sodium Potassium Chloride Carbon Dioxide BUN Creatinine Glucose POC Glucose 112 H 107 H Calcium Phosphorus Magnesium Total Creatine Kinase CK-MB (CK-2) Rel Index Troponin T C-Reactive Protein Total Protein Albumin LDL Cholesterol Direct Urine WBC (Auto) Crossmatch 05/09/22 05/09/22 05/09/22 15:15 15:39 21:15 WBC RBC Hgb Hct MCV MCH MCHC RDW Plt Count Lymph % (Auto) [place] % (Auto) Lymph # (Auto) [place] # (Auto) Seg Neutrophils % Seg Neuts % (Manual) Lymphocytes % (Manual) Seg Neutrophils # Seg Neutrophils # Man Lymphocytes # (Manual) PT INR ABG pH ABG pO2 ABG HCO3 ABG O2 Saturation ABG Base Excess ABG Hemoglobin Oxyhemoglobin Sodium Potassium Chloride 92.9 L Carbon Dioxide 40 H BUN Creatinine < 0.2 L Glucose 141 H POC Glucose 118 H 112 H Calcium Phosphorus Magnesium Total Creatine Kinase CK-MB (CK-2) Rel Index Troponin T C-Reactive Protein Total Protein Albumin LDL Cholesterol Direct Urine WBC (Auto) Crossmatch 05/10/22 05/12/22 05/13/22 15:14 00:25 04:02 WBC 13.3 H RBC 3.14 L Hgb 8.7 L Hct 28.0 L MCV MCH MCHC 31 L RDW Plt Count Lymph % (Auto) [place] % (Auto) Lymph # (Auto) [place] # (Auto) Seg Neutrophils % Seg Neuts % (Manual) Lymphocytes % (Manual) Seg Neutrophils # Seg Neutrophils # Man Lymphocytes # (Manual) PT INR ABG pH ABG pO2 ABG HCO3 ABG O2 Saturation ABG Base Excess ABG Hemoglobin Oxyhemoglobin Sodium Potassium Chloride Carbon Dioxide BUN Creatinine Glucose POC Glucose 113 H 158 H Calcium Phosphorus Magnesium Total Creatine Kinase CK-MB (CK-2) Rel Index Troponin T C-Reactive Protein Total Protein Albumin LDL Cholesterol Direct Urine WBC (Auto) Crossmatch 05/13/22 05/13/22 05/13/22 04:02 06:32 13:09 WBC RBC Hgb Hct MCV MCH MCHC RDW Plt Count Lymph % (Auto) [place] % (Auto) Lymph # (Auto) [place] # (Auto) Seg Neutrophils % Seg Neuts % (Manual) Lymphocytes % (Manual) Seg Neutrophils # Seg Neutrophils # Man Lymphocytes # (Manual) PT INR ABG pH ABG pO2 ABG HCO3 ABG O2 Saturation ABG Base Excess ABG Hemoglobin Oxyhemoglobin Sodium 135 L Potassium Chloride 91.1 L Carbon Dioxide 40 H BUN 23 H Creatinine < 0.2 L Glucose 139 H POC Glucose 129 H 117 H Calcium Phosphorus Magnesium Total Creatine Kinase CK-MB (CK-2) Rel Index Troponin T C-Reactive Protein Total Protein Albumin LDL Cholesterol Direct Urine WBC (Auto) Crossmatch 05/13/22 05/14/22 05/14/22 21:28 05:44 07:35 WBC RBC Hgb Hct MCV MCH MCHC RDW Plt Count Lymph % (Auto) [place] % (Auto) Lymph # (Auto) [place] # (Auto) Seg Neutrophils % Seg Neuts % (Manual) Lymphocytes % (Manual) Seg Neutrophils # Seg Neutrophils # Man Lymphocytes # (Manual) PT INR ABG pH ABG pO2 ABG HCO3 ABG O2 Saturation ABG Base Excess ABG Hemoglobin Oxyhemoglobin Sodium Potassium Chloride Carbon Dioxide BUN Creatinine Glucose POC Glucose 109 H 130 H 125 H Calcium Phosphorus Magnesium Total Creatine Kinase CK-MB (CK-2) Rel Index Troponin T C-Reactive Protein Total Protein Albumin LDL Cholesterol Direct Urine WBC (Auto) Crossmatch 05/14/22 05/14/22 05/15/22 16:26 23:44 10:44 WBC 13.9 H RBC 2.71 L Hgb 7.5 L Hct 23.5 L MCV MCH MCHC RDW 15.9 H Plt Count Lymph % (Auto) [place] % (Auto) Lymph # (Auto) [place] # (Auto) Seg Neutrophils % Seg Neuts % (Manual) Lymphocytes % (Manual) Seg Neutrophils # Seg Neutrophils # Man Lymphocytes # (Manual) PT INR ABG pH ABG pO2 ABG HCO3 ABG O2 Saturation ABG Base Excess ABG Hemoglobin Oxyhemoglobin Sodium Potassium Chloride Carbon Dioxide BUN Creatinine Glucose POC Glucose 112 H 189 H Calcium Phosphorus Magnesium Total Creatine Kinase CK-MB (CK-2) Rel Index Troponin T C-Reactive Protein Total Protein Albumin LDL Cholesterol Direct Urine WBC (Auto) Crossmatch 05/15/22 05/16/2205/16/22 10:44 14:50 21:36 WBC RBC Hgb Hct MCV MCH MCHC RDW Plt Count Lymph % (Auto) [place] % (Auto) Lymph # (Auto) [place] # (Auto) Seg Neutrophils % Seg Neuts % (Manual) Lymphocytes % (Manual) Seg Neutrophils # Seg Neutrophils # Man Lymphocytes # (Manual) PT INR ABG pH ABG pO2 ABG HCO3 ABG O2 Saturation ABG Base Excess ABG Hemoglobin Oxyhemoglobin Sodium 135 L Potassium 3.3 L D Chloride 91.5 L Carbon Dioxide 33 H D BUN 21 H Creatinine < 0.2 L Glucose 118 H POC Glucose 133 H 123 H Calcium 7.9 L Phosphorus Magnesium Total Creatine Kinase CK-MB (CK-2) Rel Index Troponin T C-Reactive Protein Total Protein Albumin LDL Cholesterol Direct Urine WBC (Auto) Crossmatch 05/17/22 05/17/22 05/17/22 03:41 03:41 05:51 WBC 16.2 H RBC 2.53 L Hgb 7.0 L Hct 21.5 L MCV MCH MCHC RDW 16.2 H Plt Count Lymph % (Auto) [place] % (Auto) Lymph # (Auto) [place] # (Auto) Seg Neutrophils % Seg Neuts % (Manual) 96.0 H Lymphocytes % (Manual) 1.0 L Seg Neutrophils # Seg Neutrophils # Man 15.6 H Lymphocytes # (Manual) 0.2 L PT INR ABG pH ABG pO2 ABG HCO3 ABG O2 Saturation ABG Base Excess ABG Hemoglobin Oxyhemoglobin Sodium 132 L Potassium Chloride 95.0 L Carbon Dioxide BUN 22 H Creatinine < 0.2 L Glucose 122 H POC Glucose 123 H Calcium Phosphorus Magnesium Total Creatine Kinase CK-MB (CK-2) Rel Index Troponin T C-Reactive Protein 31.20 H Total Protein Albumin LDL Cholesterol Direct Urine WBC (Auto) Crossmatch 05/17/22 05/17/22 05/18/22 07:53 21:03 05:41 WBC 15.0 H RBC 2.58 L Hgb 7.1 L Hct 22.3 L MCV MCH MCHC RDW 16.1 H Plt Count Lymph % (Auto) [place] % (Auto) Lymph # (Auto) [place] # (Auto) Seg Neutrophils % Seg Neuts % (Manual) Lymphocytes % (Manual) Seg Neutrophils # Seg Neutrophils # Man Lymphocytes # (Manual) PT INR ABG pH ABG pO2 ABG HCO3 ABG O2 Saturation ABG Base Excess ABG Hemoglobin Oxyhemoglobin Sodium Potassium Chloride Carbon Dioxide BUN Creatinine Glucose POC Glucose 106 H 123 H Calcium Phosphorus Magnesium Total Creatine Kinase CK-MB (CK-2) Rel Index Troponin T C-Reactive Protein Total Protein Albumin LDL Cholesterol Direct Urine WBC (Auto) Crossmatch 05/18/22 05/18/22 05/18/22 05:41 13:56 21:08 WBC RBC Hgb Hct MCV MCH MCHC RDW Plt Count Lymph % (Auto) [place] % (Auto) Lymph # (Auto) [place] # (Auto) Seg Neutrophils % Seg Neuts % (Manual) Lymphocytes % (Manual) Seg Neutrophils # Seg Neutrophils # Man Lymphocytes # (Manual) PT INR ABG pH ABG pO2 ABG HCO3 ABG O2 Saturation ABG Base Excess ABG Hemoglobin Oxyhemoglobin Sodium Potassium Chloride 97.9 L Carbon Dioxide BUN 23 H Creatinine < 0.2 L Glucose 128 H POC Glucose 137 H Calcium Phosphorus Magnesium Total Creatine Kinase CK-MB (CK-2) Rel Index Troponin T C-Reactive Protein Total Protein Albumin LDL Cholesterol Direct Urine WBC (Auto) Crossmatch See Detail 05/18/22 05/19/22 05/20/22 23:21 06:10 00:43 WBC 13.5 H RBC 2.53 L Hgb 7.2 L Hct 21.5 L MCV MCH MCHC RDW 16.4 H Plt Count Lymph % (Auto) [place] % (Auto) Lymph # (Auto) [place] # (Auto) Seg Neutrophils % Seg Neuts % (Manual) Lymphocytes % (Manual) Seg Neutrophils # Seg Neutrophils # Man Lymphocytes # (Manual) PT INR ABG pH ABG pO2 70.5 L ABG HCO3 30.3 H ABG O2 Saturation ABG Base Excess 4.9 H ABG Hemoglobin 5.9 L Oxyhemoglobin Sodium Potassium Chloride Carbon Dioxide BUN Creatinine Glucose POC Glucose 151 H Calcium Phosphorus Magnesium Total Creatine Kinase CK-MB (CK-2) Rel Index Troponin T C-Reactive Protein Total Protein Albumin LDL Cholesterol Direct Urine WBC (Auto) Crossmatch 05/20/22 05/20/22 05/20/22 04:40 04:40 07:08 WBC 13.3 H RBC 2.57 L Hgb 7.1 L Hct 22.2 L MCV MCH MCHC RDW 16.3 H Plt Count Lymph % (Auto) [place] % (Auto) Lymph # (Auto) [place] # (Auto) Seg Neutrophils % Seg Neuts % (Manual) Lymphocytes % (Manual) Seg Neutrophils # Seg Neutrophils # Man Lymphocytes # (Manual) PT INR ABG pH ABG pO2 ABG HCO3 ABG O2 Saturation ABG Base Excess ABG Hemoglobin Oxyhemoglobin Sodium 134 L Potassium Chloride Carbon Dioxide BUN Creatinine < 0.2 L Glucose 170 H POC Glucose 174 H Calcium 8.1 L Phosphorus Magnesium Total Creatine Kinase CK-MB (CK-2) Rel Index Troponin T C-Reactive Protein Total Protein Albumin LDL Cholesterol Direct Urine WBC (Auto) Crossmatch 05/20/22 05/21/22 05/21/22 15:08 05:13 22:07 WBC RBC Hgb Hct MCV MCH MCHC RDW Plt Count Lymph % (Auto) [place] % (Auto) Lymph # (Auto) [place] # (Auto) Seg Neutrophils % Seg Neuts % (Manual) Lymphocytes % (Manual) Seg Neutrophils # Seg Neutrophils # Man Lymphocytes # (Manual) PT INR ABG pH ABG pO2 ABG HCO3 ABG O2 Saturation ABG Base Excess ABG Hemoglobin Oxyhemoglobin Sodium Potassium Chloride Carbon Dioxide BUN Creatinine Glucose POC Glucose 114 H 149 H 113 H Calcium Phosphorus Magnesium Total Creatine Kinase CK-MB (CK-2) Rel Index Troponin T C-Reactive Protein Total Protein Albumin LDL Cholesterol Direct Urine WBC (Auto) Crossmatch 05/22/22 05/22/22 05/22/22 05:49 05:49 07:43 WBC RBC 3.05 L Hgb 8.6 L Hct 26.2 L MCV MCH MCHC RDW 16.8 H Plt Count Lymph % (Auto) [place] % (Auto) Lymph # (Auto) [place] # (Auto) Seg Neutrophils % Seg Neuts % (Manual) Lymphocytes % (Manual) Seg Neutrophils # Seg Neutrophils # Man Lymphocytes # (Manual) PT INR ABG pH ABG pO2 ABG HCO3 ABG O2 Saturation ABG Base Excess ABG Hemoglobin Oxyhemoglobin Sodium 131 L Potassium Chloride 93.3 L Carbon Dioxide 32 H BUN Creatinine < 0.2 L Glucose 148 H POC Glucose 145 H Calcium 8.2 L Phosphorus Magnesium Total Creatine Kinase CK-MB (CK-2) Rel Index Troponin T C-Reactive Protein Total Protein Albumin LDL Cholesterol Direct Urine WBC (Auto) Crossmatch 05/22/22 05/22/22 05/23/22 14:09 22:06 07:57 WBC RBC Hgb Hct MCV MCH MCHC RDW Plt Count Lymph % (Auto) [place] % (Auto) Lymph # (Auto) [place] # (Auto) Seg Neutrophils % Seg Neuts % (Manual) Lymphocytes % (Manual) Seg Neutrophils # Seg Neutrophils # Man Lymphocytes # (Manual) PT INR ABG pH ABG pO2 ABG HCO3 ABG O2 Saturation ABG Base Excess ABG Hemoglobin Oxyhemoglobin Sodium Potassium Chloride Carbon Dioxide BUN Creatinine Glucose POC Glucose 136 H 129 H 137 H Calcium Phosphorus Magnesium Total Creatine Kinase CK-MB (CK-2) Rel Index Troponin T C-Reactive Protein Total Protein Albumin LDL Cholesterol Direct Urine WBC (Auto) Crossmatch 05/23/22 05/23/22 05/24/22 14:13 21:29 04:22 WBC RBC 2.89 L Hgb 7.9 L Hct 24.9 L MCV MCH MCHC RDW 17.0 H Plt Count Lymph % (Auto) [place] % (Auto) Lymph # (Auto) [place] # (Auto) Seg Neutrophils % Seg Neuts % (Manual) Lymphocytes % (Manual) Seg Neutrophils # Seg Neutrophils # Man Lymphocytes # (Manual) PT INR ABG pH ABG pO2 ABG HCO3 ABG O2 Saturation ABG Base Excess ABG Hemoglobin Oxyhemoglobin Sodium Potassium Chloride Carbon Dioxide BUN Creatinine Glucose POC Glucose 135 H 132 H Calcium Phosphorus Magnesium Total Creatine Kinase CK-MB (CK-2) Rel Index Troponin T C-Reactive Protein Total Protein Albumin LDL Cholesterol Direct Urine WBC (Auto) Crossmatch 05/24/22 05/24/22 05/24/22 04:22 06:41 12:12 WBC RBC Hgb Hct MCV MCH MCHC RDW Plt Count Lymph % (Auto) [place] % (Auto) Lymph # (Auto) [place] # (Auto) Seg Neutrophils % Seg Neuts % (Manual) Lymphocytes % (Manual) Seg Neutrophils # Seg Neutrophils # Man Lymphocytes # (Manual) PT INR ABG pH ABG pO2 ABG HCO3 ABG O2 Saturation ABG Base Excess ABG Hemoglobin Oxyhemoglobin Sodium 133 L Potassium 5.1 H Chloride 93.7 L Carbon Dioxide 33 H BUN Creatinine < 0.2 L Glucose 144 H POC Glucose 140 H 130 H Calcium 8.3 L Phosphorus Magnesium Total Creatine Kinase CK-MB (CK-2) Rel Index Troponin T C-Reactive Protein Total Protein Albumin LDL Cholesterol Direct Urine WBC (Auto) Crossmatch 05/24/22 05/25/22 05/25/22 21:24 00:44 05:41 WBC RBC Hgb Hct MCV MCH MCHC RDW Plt Count Lymph % (Auto) [place] % (Auto) Lymph # (Auto) [place] # (Auto) Seg Neutrophils % Seg Neuts % (Manual) Lymphocytes % (Manual) Seg Neutrophils # Seg Neutrophils # Man Lymphocytes # (Manual) PT INR ABG pH ABG pO2 ABG HCO3 ABG O2 Saturation ABG Base Excess ABG Hemoglobin Oxyhemoglobin Sodium Potassium Chloride 94.8 L Carbon Dioxide 35 H BUN Creatinine < 0.2 L Glucose 146 H POC Glucose 141 H 142 H Calcium Phosphorus Magnesium Total Creatine Kinase CK-MB (CK-2) Rel Index Troponin T C-Reactive Protein Total Protein Albumin LDL Cholesterol Direct Urine WBC (Auto) Crossmatch 05/25/22 05/25/22 05/26/22 13:51 14:46 00:31 WBC RBC 2.87 L 2.82 L Hgb 7.8 L 7.6 L Hct 24.4 L 23.9 L MCV MCH 27 L 27 L MCHC RDW 17.1 H 17.4 H Plt Count Lymph % (Auto) 11.9 L [place] % (Auto) Lymph # (Auto) [place] # (Auto) Seg Neutrophils % 81.2 H Seg Neuts % (Manual) Lymphocytes % (Manual) Seg Neutrophils # 8.4 H Seg Neutrophils # Man Lymphocytes # (Manual) PT INR ABG pH ABG pO2 ABG HCO3 ABG O2 Saturation ABG Base Excess ABG Hemoglobin Oxyhemoglobin Sodium Potassium Chloride Carbon Dioxide BUN Creatinine Glucose POC Glucose 139 H Calcium Phosphorus Magnesium Total Creatine Kinase CK-MB (CK-2) Rel Index Troponin T C-Reactive Protein Total Protein Albumin LDL Cholesterol Direct Urine WBC (Auto) Crossmatch 05/26/22 05/26/22 05/26/22 00:31 05:02 20:28 WBC RBC Hgb Hct MCV MCH MCHC RDW Plt Count Lymph % (Auto) [place] % (Auto) Lymph # (Auto) [place] # (Auto) Seg Neutrophils % Seg Neuts % (Manual) Lymphocytes % (Manual) Seg Neutrophils # Seg Neutrophils # Man Lymphocytes # (Manual) PT INR ABG pH ABG pO2 ABG HCO3 ABG O2 Saturation ABG Base Excess ABG Hemoglobin Oxyhemoglobin Sodium 134 L Potassium Chloride 92.4 L Carbon Dioxide 37 H BUN Creatinine < 0.2 L Glucose 140 H POC Glucose 111 H 161 H Calcium 8.2 L Phosphorus Magnesium Total Creatine Kinase CK-MB (CK-2) Rel Index Troponin T C-Reactive Protein Total Protein Albumin LDL Cholesterol Direct Urine WBC (Auto) Crossmatch 05/27/22 05/27/22 05/27/22 05:56 16:32 23:17 WBC RBC Hgb Hct MCV MCH MCHC RDW Plt Count Lymph % (Auto) [place] % (Auto) Lymph # (Auto) [place] # (Auto) Seg Neutrophils % Seg Neuts % (Manual) Lymphocytes % (Manual) Seg Neutrophils # Seg Neutrophils # Man Lymphocytes # (Manual) PT INR ABG pH ABG pO2 ABG HCO3 ABG O2 Saturation ABG Base Excess ABG Hemoglobin Oxyhemoglobin Sodium Potassium Chloride Carbon Dioxide BUN Creatinine Glucose POC Glucose 135 H 138 H 124 H Calcium Phosphorus Magnesium Total Creatine Kinase CK-MB (CK-2) Rel Index Troponin T C-Reactive Protein Total Protein Albumin LDL Cholesterol Direct Urine WBC (Auto) Crossmatch 05/28/22 05/28/22 05/28/22 04:20 04:20 07:26 WBC RBC 2.82 L Hgb 7.6 L Hct 23.6 L MCV MCH 27 L MCHC RDW 17.3 H Plt Count Lymph % (Auto) [place] % (Auto) Lymph # (Auto) [place] # (Auto) Seg Neutrophils % Seg Neuts % (Manual) Lymphocytes % (Manual) Seg Neutrophils # Seg Neutrophils # Man Lymphocytes # (Manual) PT INR ABG pH ABG pO2 ABG HCO3 ABG O2 Saturation ABG Base Excess ABG Hemoglobin Oxyhemoglobin Sodium 135 L Potassium Chloride 94.4 L Carbon Dioxide 35 H BUN Creatinine < 0.2 L Glucose 130 H POC Glucose 124 H Calcium 8.0 L Phosphorus Magnesium Total Creatine Kinase CK-MB (CK-2) Rel Index Troponin T C-Reactive Protein Total Protein Albumin LDL Cholesterol Direct Urine WBC (Auto) Crossmatch 05/28/22 05/28/22 05/29/22 16:20 21:19 13:29 WBC RBC Hgb Hct MCV MCH MCHC RDW Plt Count Lymph % (Auto) [place] % (Auto) Lymph # (Auto) [place] # (Auto) Seg Neutrophils % Seg Neuts % (Manual) Lymphocytes % (Manual) Seg Neutrophils # Seg Neutrophils # Man Lymphocytes # (Manual) PT INR ABG pH ABG pO2 ABG HCO3 ABG O2 Saturation ABG Base Excess ABG Hemoglobin Oxyhemoglobin Sodium Potassium Chloride Carbon Dioxide BUN Creatinine Glucose POC Glucose 138 H 120 H 137 H Calcium Phosphorus Magnesium Total Creatine Kinase CK-MB (CK-2) Rel Index Troponin T C-Reactive Protein Total Protein Albumin LDL Cholesterol Direct Urine WBC (Auto) Crossmatch 05/29/22 05/30/22 05/30/22 23:32 05:54 16:13 WBC RBC Hgb Hct MCV MCH MCHC RDW Plt Count Lymph % (Auto) [place] % (Auto) Lymph # (Auto) [place] # (Auto) Seg Neutrophils % Seg Neuts % (Manual) Lymphocytes % (Manual) Seg Neutrophils # Seg Neutrophils # Man Lymphocytes # (Manual) PT INR ABG pH ABG pO2 ABG HCO3 ABG O2 Saturation ABG Base Excess ABG Hemoglobin Oxyhemoglobin Sodium Potassium Chloride Carbon Dioxide BUN Creatinine Glucose POC Glucose 109 H 128 H 119 H Calcium Phosphorus Magnesium Total Creatine Kinase CK-MB (CK-2) Rel Index Troponin T C-Reactive Protein Total Protein Albumin LDL Cholesterol Direct Urine WBC (Auto) Crossmatch 05/30/22 05/31/22 05/31/22 23:07 04:55 04:55 WBC RBC 2.58 L Hgb 6.9 L Hct 21.4 L MCV 83 L MCH 27 L MCHC RDW 17.6 H Plt Count Lymph % (Auto) [place] % (Auto) Lymph # (Auto) [place] # (Auto) Seg Neutrophils % Seg Neuts % (Manual) Lymphocytes % (Manual) Seg Neutrophils # Seg Neutrophils # Man Lymphocytes # (Manual) PT INR ABG pH ABG pO2 ABG HCO3 ABG O2 Saturation ABG Base Excess ABG Hemoglobin Oxyhemoglobin Sodium 133 L Potassium Chloride 96.1 L Carbon Dioxide 31 H BUN Creatinine < 0.2 L Glucose 129 H POC Glucose 119 H Calcium 7.9 L Phosphorus Magnesium Total Creatine Kinase CK-MB (CK-2) Rel Index Troponin T C-Reactive Protein Total Protein Albumin LDL Cholesterol Direct Urine WBC (Auto) Crossmatch 05/31/22 05/31/22 05/31/22 04:58 06:07 07:25 WBC RBC Hgb Hct MCV MCH MCHC RDW Plt Count Lymph % (Auto) [place] % (Auto) Lymph # (Auto) [place] # (Auto) Seg Neutrophils % Seg Neuts % (Manual) Lymphocytes % (Manual) Seg Neutrophils # Seg Neutrophils # Man Lymphocytes # (Manual) PT INR ABG pH ABG pO2 ABG HCO3 ABG O2 Saturation ABG Base Excess ABG Hemoglobin Oxyhemoglobin Sodium Potassium Chloride Carbon Dioxide BUN Creatinine Glucose POC Glucose 116 H 112 H Calcium Phosphorus Magnesium Total Creatine Kinase CK-MB (CK-2) Rel Index Troponin T C-Reactive Protein Total Protein Albumin LDL Cholesterol Direct Urine WBC (Auto) Crossmatch See Detail 05/31/22 05/31/22 05/31/22 16:37 22:45 23:49 WBC RBC Hgb Hct MCV MCH MCHC RDW Plt Count Lymph % (Auto) [place] % (Auto) Lymph # (Auto) [place] # (Auto) Seg Neutrophils % Seg Neuts % (Manual) Lymphocytes % (Manual) Seg Neutrophils # Seg Neutrophils # Man Lymphocytes # (Manual) PT INR ABG pH ABG pO2 ABG HCO3 ABG O2 Saturation ABG Base Excess ABG Hemoglobin Oxyhemoglobin Sodium Potassium Chloride Carbon Dioxide BUN Creatinine Glucose POC Glucose 116 H 115 H 115 H Calcium Phosphorus Magnesium Total Creatine Kinase CK-MB (CK-2) Rel Index Troponin T C-Reactive Protein Total Protein Albumin LDL Cholesterol Direct Urine WBC (Auto) Crossmatch 06/01/22 06/01/22 06/01/22 04:14 06:05 07:24 WBC RBC 2.80 L Hgb 7.6 L Hct 23.3 L MCV 83 L MCH 27 L MCHC RDW 17.8 H Plt Count Lymph % (Auto) [place] % (Auto) Lymph # (Auto) [place] # (Auto) Seg Neutrophils % Seg Neuts % (Manual) Lymphocytes % (Manual) Seg Neutrophils # Seg Neutrophils # Man Lymphocytes # (Manual) PT INR ABG pH ABG pO2 ABG HCO3 ABG O2 Saturation ABG Base Excess ABG Hemoglobin Oxyhemoglobin Sodium Potassium Chloride Carbon Dioxide BUN Creatinine Glucose POC Glucose 132 H 115 H Calcium Phosphorus Magnesium Total Creatine Kinase CK-MB (CK-2) Rel Index Troponin T C-Reactive Protein Total Protein Albumin LDL Cholesterol Direct Urine WBC (Auto) Crossmatch Allied health notes reviewed: nursing
[2022-06-01] MEDS ORDERED: fentaNYL 12 MCG/HR PATCH 72HR TD SCH (12:00)
--- NOTE | 2022-06-01 17:19 | Progress Note ---
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, recently hospitalized at [facility] admitted for acute hypoxemic respiratory failure 2/2 pneumonia Neuro: h/o ALS -s/p precedex, fentanyl gtt -Reorientation as needed -Maintain sleep-wake cycle -As needed analgesia -CT head with no acute intracranial process -Per family patient is nonverbal at baseline but responsive -Seroquel BID, baclofen TID Cardiac: Suspect ischemic coronary artery disease, ST, h/o cardiomyopathy -Cardiology consulted, appreciate recommendations -continue conservative management -Blood pressure monitoring per protocol -s/p Vasopressor support with Levophed -Echocardiogram shows ejection fraction of 40 to 45%, mild global hypokinesis of left ventricle -Nitro patch, BB Respiratory: Acute hypoxic respiratory failure -CCM consulted, appreciate recommendations -Intubated on 04/02 with a 7.50 ETT attempt at the lips -s/p trach on 04/14 and s/p bronch on 04/15 -A.m. vent settings: AC Rate 14, TV 500, Peep 12, FiO2 55% (10 L) -See RT notes for titration -Scop patch -VAP bundle -SPO2 monitoring GI: Moderate protein calorie malnutrition -24 hours + 20 mL -PPI -Peg 04/14 -NTR consulted for tube feedings -BR: Senokot/colace, MiraLAX : Metabolic Alkalosis -Record intake and output -Renally dose medications -Avoid nephrotoxic medications -Bladder scan q 8 hours -trend BMP ID: Sepsis, HAP (Pseudomonas and Enterobacter tracheal aspirate), blood culture with bacillus species, Stage 4 sacra ulcer, Pseudomonas and VRE in wound culture -Infectious disease, WOCN, and General Surgery consulted, appreciate recommendations -Per infectious disease patient was recently admitted to [facility] but discharged home with home hospice and not giving antibiotics -04/15 Tracheal aspirate with Pseudomonas aeruginosa, Enterobacter aerogenes -04/02 blood culture with bacillus species, 04/05 blood culture NGTD -MRSA (-) -Abx per ID: okay to discharge with IV Abx, Avycaz 2.5 g every 8 hours X 10 days until 06/04/2022. PICC line placed -s/p cefepime, merem, Levaquin, and Vanco -05/19 s/p wound debridement, mesh placement to wound bed and wound vac placement and subsequent removal -wound culture with Ecoli -Dressing changes per RN -Monitor WBC and temperature curve Endo: NAD -Avoid hypoglycemia -SSI -Accu-Cheks q 6 Heme: Anemia -Heparin subq -Trend CBC -s/p 2 unit prbc -Transfuse hemoglobin less than 7 -SCDs to BLE while in bed Advance Care Planning - Disease education, care plan, diagnoses, and prognosis were discussed patient's , Carly Lopez, and patient daughter, Kaylee Warren, who translated for #[phone]. They reported that patient was following at [facility] for his ALS and during recent hospitalization at [facility] they were told nothing else can be offered to patient at this time and patient was discharge home with home hospice and PO morphine. First hospice visit was on , 04/01 however, patient became unresponsive 04/02 and they brought in to the hospital. - Goal of care and code status were also addressed at that time. Family wants to wait for a couple days to see how patient respond to current treatment before making a decision. All questions and concerns were addressed at this time. Patient family acknowledged understanding and agreement with care plan. -Patient remains a FULL CODE status. -04/05: Discussion at bedside with interpreting service with Dr. Valdivia and family state they would discuss next steps amongst themselves and let healthcare team know of decisions -04/06: extensive discussion with family ( and son) with Dr. Grayson regarding goals of care -04/08: Extensive discussion with with the use of language interpreter line regarding goals of care; no decision made. Possible consult to surgery for trach/PEG early next week. -04/09: Discussion with and her sister with Dr. Grayson and then with Dr. Pineda-> Consulted surgery for trach/peg -04/30 Insurance Denied LTAC, plan for possible SNF placement now. Case management to arrange -Family declined SNF -Awaiting discharge home with ventilator setup for home care due to need for ventilation secondary to trachestomy -DC will be prolonged for 1 week d/t need to remove wound mesh placed by surgery on 05/17 -DC postponed till completion of abx as it was not approved by insurance The high probability of a clinically significant, sudden or life threatening deterioration of the [resp] system(s) required my full and direct attention, intervention and personal management. The aggregate critical care time was [60] minutes. 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 Work-up in the emergency department revealed leukocytosis, elevated troponin and hyponatremia and CXR revealed moderate to large pleural effusion on the right. Patient was having agonal breathing in the emergency department and was intubated. Patient was admitted to the hospitalist service with consults to [facility], cardiology and infectious disease for further work-up. Hospital Course to Date: 04/03: Intubated and Sedated on versed gtt, RASS-5. CT head/brain noted with no acute intracranial abnormality. Plan to initiated precededx gtt and wean off versed for a RASS goal of 0 to -2. CT chect also reviewed, findings are most consistent with acute bronchopneumonia. Continue empiric IV Abx, vent adjustment per [facility]. ID consulted. Continue to F/U on cultures. Titrate pressor for MAP above 65. Medical records requested from [facility]. 04/04: Remains stable on the vent, easily arousable on precedex gtt, not following commands. Plan for SAT/SBT today. PRN analgesia for CPOT greater than 3. Fevers improved, cultures and procal pending. Continue current IV abx, ID also consulted. Remains on low dose pressors, titrate pressors for a MAP above 65. 04/05: Long discussion with family with use of translation phone with [facility] regarding goals of care. Family to have meeting amongst themselves and informed care team of decisions. Fentanyl drip added for respiratory distress. Remains on Precedex drip. Antibiotics per ID. Given 2L NS bolus with levophed gtt 04/06: Family discussion with Dr. Grayson for goals of care. CXR shows possible mucus plug, continue CPT as FiO2 is being able to be weaned. Potassium repleted. Weaning fentnyl gtt. 04/07: Ultrasound guided thoracentesis today scheduled, inadequate amount of pleural effusion on so not completed. Patient was started on Levophed overnight which was weaned off this morning however had to be started twice a day. Remains on fentanyl and Precedex. Cardiology discontinued BB and ACEi in setting of hypotension. 04/08: COVID-19 PCR negative. Routine EEG ordered by cardiology which showed ST changes, cardiology aware. They will continue conservative treatment. Repeat troponins 0.030 which are less than admit of 0.048. Dr. Grayson had a long discussion with with the use of language interpreter today at bedside and has not made a decision regarding goals of care. Possible consult to surgery for trach/PEG early next week. Continues to require Precedex and fentanyl drip for sedation. Carvedilol/lisinopril discontinued as patient is continuously on Levophed. 04/09: No acute events reported overnight, remains on fentanyl, Precedex and Levophed drips. Dr. Grayson and Dr. Pineda updated family at bedside extensively today. Consulted surgery for trach/PEG. COVID-19 PCR negative. 04/10: Patient noted to have desaturation episodes, FiO2 increased slightly to 35%. Will add Mucomyst. Remains on fentanyl and Precedex. Off of Levophed. Surgery consulted for trach/PEG. 04/11: FiO2 increased over night likely related to hypoxia, continues on fent gtt, weaning precedex gtt as he is also on Seroquel. Will d/w CCM re scheduled or prn oxycodone 04/12: Periods of hypoxia and tachycardia this am. Symptoms improved post deep ayala ction and tracheal lavage, Repeat CXR noted with no significant change. Continue CPT and mucomyst. Plan for possible trach/PEG tomorrow by general surgery. 04/13: Remains stable on the vent. Patient is wake and tracking but does not follow simple commands. No report of hypoxia from overnight, continue CPT and mucomyst. Plan for track and PEG today by General Surgery. Plan for LTAC placement post procedure, case management to arrange. 04/14: VIRGILIO overnight, Trach and PEG postponed for today by general surgery. Plan for LTAC placement post procedure, case management to arrange. 04/15: S/p Trach and PEG. Up to 80% FiO2 this am, this am CXR noted suggesting possible mucus plug. D/W CCM plan for bronch today. Continue CPT and mucomyst. Plan of care thoroughly discussed with patient's and son (who translated for ) at the bedside. Per , design center consultant had already discussed the risks and benefits of the procedure yesterday. She verbalized understanding and agreed with procedure and current care plan, consent signed. Okay to use PEG-tube for meds this am, resume TF once okay by general Surgery. Case management to arrange LTAC placement. 04/16: s/p Bronchocopy by CCM. FiO2 down to 60%, angela 10 this am. This am CXR with moderate improvement. Continue CPT and mucomyst, wean Fio2 as tolerated for SPO2 above 92%. Patient is tolerating TF, advance to goal as ordered. Possible LTAC placement, case management to arrange. 04/17: VIRGILIO overnight. remains stable on the vent, recent CXR and this am ABG noted. Continue CPT and mucomyst, wean Fio2 as tolerated. 04/18: Remains stable on the vent, Fio2 down to 55% and peep of 8 this am. Continue to wean as tolerated, CPT, and mucomyst. Dsiposition- LTAC placement, case management to arrange. 04/19: No acute events overnight. Continue current management. 04/20: No acute events overnight, continue current management 04/21: Patient had chest ultrasound which showed trace pleural effusions, chest x-ray improved after the addition of Mucomyst yesterday. FiO2 55-65%. No acute events overnight. more interactive today. 04/22: Seroquel changed to BID, FiO2 was increased to 60%. RT increased FIO2 to 100 d/t desaturation into the 80s but was able to wean down. CCM increased PEEP and decreased FiO2. 04/23: CCM increase PEEP, no acute events reported overnight. 04/24: Spoke to RT about decreasing FiO2 as tolerated. No acute events reported overnight. Continue supportive management. 04/25: Weaning as tolerated. no acute events overnight. RT to attempt CPAP again today 04/26: VIRGILIO overnight. Patient failed PSV trial again this morning. Continue supportive management and daily PST trial. 04/27: Patient failed PSV trial again this am due to episodes of apnea. Continue daily PSV trial as tolerated. Case management to arrange LTAC placement 04/28: Remains stable. Continue daily PSV trial as tolerated. Awaiting approval for LTAC 04/29: VIRGILIO overnight. Continue daily PSV trial. Awaiting approval for LTAC, case management to arrange. 04/30: Patient continue to fail PSV trial. Per case management patient was denied for LTAC, now possible SNF placement. Case managemen to arrange. Continue supportive measures and daily PSV trial as tolerated. 05/01: VIRGILIO overnight. Continue supportive measures and daily PSV trial as tolerated. Possible SNF placement. 05/02: Continue supportive measures and daily PSV trial as tolerated. Possible SNF placement, case management to arrange 05/03: no acute events overnight, CM arranging home vent setup. Family declined SNF. 05/04: RN/RT reports thin secretions, increase in FiO2 for decreased oxygen on ABG. No acute events overnight. 05/05: Family scheduled for teaching session today at 2pm. Increase in FiO2 overnight to 45%. Awaiting vent setup for home care for ventilation secondary to tracheostomy. 05/06: No acute events reported overnight, T-max 100.9. FiO2 45%. Awaiting discharge home with vent when teaching is completed 05/07: No acute events reported overnight, Awaiting discharge home with vent when teaching is completed 05/08: No acute events reported overnight, Awaiting discharge home with vent when teaching is completed 05/09: no acute events reported overnight. Ordered routine labs today. Family continuing with vent training. Anticipate discharge home this week possibly on Tuesday. 05/10: VIRGILIO overnight. Continue current supportive measures and family training at the bedside. Plan for discharge home tomorrow. 05/11: Discharge home today. 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 Patient desated on home vent at max setting. Home vent is not sufficient to support patient's ventilation need. D/w CCM, Dr. Valdivia, who recommend SNF placement at this time. Patient's family notified at the bedside. All questions and concerns were address at this time. Further discussion on alternative placement to be determine and discussed with patient's family and case management today. The respiratory therapist from [facility] is schedule to come at 1400 today for further assessment. 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; WOCN consult placed 05-18 ID and gen surg consult 05/19: s/p sacral wound debridement with Dr. Jerome with wound vac and mesh pl acement. Per Dr. Jerome patient will need to either stay in the hospital 1 week to be taken back to the OR for removal of mesh on wound or may be discharged but will have to visit the wound clinic in 2 weeks. We will alert geriatric case manager. No acute events overnight. 05/20: Remains with leukocytosis, wound VAC in place. Discharge requested to be postponed by surgery. Remains on meropenem and vancomycin. No acute events reported overnight. 05/21: IV abx deescalated by ID, no acute events overnight. Continue current management. 05/22: No acute events reported overnight. Hyponatremia noted. Decreased free water flush. We will repeat labs in 48 hours. 05/23: no acute events overnight. 05/24/22 -patient seen today at bedside. Patients eyes open with no purposeful response. i reviewed lab, mar, and v/s. potassium 5.1-kayexalate given times 1- will repeat BMP in am. Pt remain on trach to vent.V/s stable. 05/25/22- Patient has significant history of ALS and as a result has remained on mechanical ventilation. Due to underlying neurological condition patient will require HFCWO vest. The patient has had trials of CoughAssist therapy with flutter wave CPT multiple suctioning while in the hospital but all of these have unfortunately failed to resolve his current condition and will benefit from the HFCWO vest. - patient asleep at the time of assessment. On trach to vent. The plan is to discharge patient on home vent. Reviewed specialist recommendations. We will follow-up with plan of care. Elevated potassium has resolved. Hyponatremia resolved. 05/26: VIRGILIO overnight. Remains afebrile, stable on home vent, VSS. Continue current IV abx, now on Avycaz per ID. 05/27: Remains stable and afebrile. ID recommendations noted, okay to discharge patient home with IV Abx, Avycaz, [id number]. PICC line ordered. Case management to arrange for IV abx at home. Possible discharge home on Tuesday. 05/28 Back on hospital vent overnight due to increase WOB and hypoxia. Patient is stable on low vent setting this am. Repeat CXR pending. D/W CCM plan to switch and optimize patient on his home vent. Continue CPT, mucomyst, and good pulmonary hygiene. PICC inserted, continue current IV Abx per ID. Possible discharge home on Tuesday. 05/29: Back on home vent, stable on 10L flow this am. Repeat CXR noted with no significant change. Continue current supportive care. Case management note and ID recommendations noted. Home infusion IV Abx not covered by insurance, appealed in process. Case management to F/U. Guarded discharge for Tuesday. 05/30: VIRGILIO overnight. Remains stable on home vent. Continue current supportive care. Guarded discharge, awaiting appeal response from insurance for IV abx at home. 05/31: Patient had desatting issues and was placed on hospital vent but will be placed back on home vent with troubleshooting. Given 1 unit PRBC today. Possible discharge on Tuesday as patient antibiotics not approved by insurance and will complete infusion on Tuesday. 06/01: abs to end on tuesday with DC to home on . No acute events overnight Hospitalist Physical - Physical exam Narrative exam: General appearance: Present: no acute distress, cachectic, other (trach/vent) - EENT Eyes: Present: PERRL, EOM intact ENT: dentition normal - Respiratory Respiratory effort: normal Respiratory: bilateral: diminished - Cardiovascular Rhythm: regular Heart Sounds: Present: S1 & S2. Absent: systolic murmur, diastolic murmur - Extremities Extremities: no ischemia, pulses intact, pulses symmetrical, normal temperature, normal color Peripheral Pulses: within normal limits - Abdominal General gastrointestinal: soft, non-tender, non-distended, normal bowel sounds - Integumentary Integumentary: Present: warm, dry - Psychiatric Psychiatric: cooperative - Neurologic Neurologic: other (moves BUE, intact cough/gag, PERRL) - Allied Health Allied health notes reviewed: nursing, RT, social work - Constitutional Vitals: Temp Pulse Resp BP Pulse Ox 99.2 F 108 H 13 115/79 100 06/01/22 16:33 06/01/22 17:00 06/01/22 17:00 06/01/22 17:00 06/01/22 17:00 General appearance: Present: no acute distress, cachectic, other (trach/vent) HEART Score - HEART Score Troponin: Troponin T 0.031 ng/mL (0.00-0.029) H 04/08/22 17:47 Results - Labs CBC & Chem 7: 06/01/22 04:14 05/31/22 04:55 Labs: Laboratory Last Values WBC 6.7 K/mm3 (4.5-11.0) 06/01/22 04:14 RBC 2.80 M/mm3 (3.65-5.03) L 06/01/22 04:14 Hgb 7.6 gm/dl (11.8-15.2) L 06/01/22 04:14 Hct 23.3 % (35.5-45.6) L 06/01/22 04:14 MCV 83 fl (84-94) L 06/01/22 04:14 MCH 27 pg (28-32) L 06/01/22 04:14 MCHC 33 % (32-34) 06/01/22 04:14 RDW 17.8 % (13.2-15.2) H 06/01/22 04:14 Plt Count 342 K/mm3 (140-440) 06/01/22 04:14 Lymph % (Auto) 11.9 % (13.4-35.0) L 05/25/22 13:51 Benzie % (Auto) 5.6 % (0.0-7.3) 05/25/22 13:51 Eos % (Auto) 0.9 % (0.0-4.3) 05/25/22 13:51 Baso % (Auto) 0.4 % (0.0-1.8) 05/25/22 13:51 Lymph # (Auto) 1.2 K/mm3 (1.2-5.4) 05/25/22 13:51 Benzie # (Auto) 0.6 K/mm3 (0.0-0.8) 05/25/22 13:51 Eos # (Auto) 0.1 K/mm3 (0.0-0.4) 05/25/22 13:51 Baso # (Auto) 0.0 K/mm3 (0.0-0.1) 05/25/22 13:51 Add Manual Diff Complete 05/17/22 03:41 Total Counted 100 05/17/22 03:41 Seg Neutrophils % 81.2 % (40.0-70.0) H 05/25/22 13:51 Seg Neuts % (Manual) 96.0 % (40.0-70.0) H 05/17/22 03:41 Band Neutrophils % 0 % 05/17/22 03:41 Lymphocytes % (Manual) 1.0 % (13.4-35.0) L 05/17/22 03:41 Reactive Lymphs % (Man) 0 % 05/17/22 03:41 Monocytes % (Manual) 3.0 % (0.0-7.3) 05/17/22 03:41 Eosinophils % (Manual) 0 % (0.0-4.3) 05/17/22 03:41 Basophils % (Manual) 0 % (0.0-1.8) 05/17/22 03:41 Metamyelocytes % 0 % 05/17/22 03:41 Myelocytes % 0 % 05/17/22 03:41 Promyelocytes % 0 % 05/17/22 03:41 Blast Cells % 0 % 05/17/22 03:41 Nucleated RBC % Not Reportable 05/17/22 03:41 Seg Neutrophils # 8.4 K/mm3 (1.8-7.7) H 05/25/22 13:51 Seg Neutrophils # Man 15.6 K/mm3 (1.8-7.7) H 05/17/22 03:41 Band Neutrophils # 0.0 K/mm3 05/17/22 03:41 Lymphocytes # (Manual) 0.2 K/mm3 (1.2-5.4) L 05/17/22 03:41 Abs React Lymphs (Man) 0.0 K/mm3 05/17/22 03:41 Monocytes # (Manual) 0.5 K/mm3 (0.0-0.8) 05/17/22 03:41 Eosinophils # (Manual) 0.0 K/mm3 (0.0-0.4) 05/17/22 03:41 Basophils # (Manual) 0.0 K/mm3 (0.0-0.1) 05/17/22 03:41 Metamyelocytes # 0.0 K/mm3 05/17/22 03:41 Myelocytes # 0.0 K/mm3 05/17/22 03:41 Promyelocytes # 0.0 K/mm3 05/17/22 03:41 Blast Cells # 0.0 K/mm3 05/17/22 03:41 WBC Morphology Not Reportable 05/17/22 03:41 Hypersegmented Neuts Not Reportable 05/17/22 03:41 Hyposegmented Neuts Not Reportable 05/17/22 03:41 Hypogranular Neuts Not Reportable 05/17/22 03:41 Smudge Cells Not Reportable 05/17/22 03:41 Toxic Granulation Not Reportable 05/17/22 03:41 Toxic Vacuolation Not Reportable 05/17/22 03:41 Dohle Bodies Not Reportable 05/17/22 03:41 Pelger-Huet Anomaly Not Reportable 05/17/22 03:41 Terry Rods Not Reportable 05/17/22 03:41 Platelet Estimate Consistent w auto 05/17/22 03:41 Clumped Platelets Not Reportable 05/17/22 03:41 Plt Clumps, EDTA Not Reportable 05/17/22 03:41 Large Platelets Not Reportable 05/17/22 03:41 Giant Platelets Not Reportable 05/17/22 03:41 Platelet Satelliting Not Reportable 05/17/22 03:41 Plt Morphology Comment Not Reportable 05/17/22 03:41 RBC Morphology Not Reportable 05/17/22 03:41 Dimorphic RBCs Not Reportable 05/17/22 03:41 Polychromasia Not Reportable 05/17/22 03:41 Hypochromasia Not Reportable 05/17/22 03:41 Poikilocytosis Not Reportable 05/17/22 03:41 Anisocytosis 1+ 05/17/22 03:41 Microcytosis Not Reportable 05/17/22 03:41 Macrocytosis Not Reportable 05/17/22 03:41 Spherocytes Not Reportable 05/17/22 03:41 Pappenheimer Bodies Not Reportable 05/17/22 03:41 Sickle Cells Not Reportable 05/17/22 03:41 Target Cells Not Reportable 05/17/22 03:41 Tear Drop Cells Not Reportable 05/17/22 03:41 Ovalocytes Not Reportable 05/17/22 03:41 Helmet Cells Not Reportable 05/17/22 03:41 [place] Bodies Not Reportable 05/17/22 03:41 [place] Rings Not Reportable 05/17/22 03:41 Casey Cells Not Reportable 05/17/22 03:41 Bite Cells Not Reportable 05/17/22 03:41 Crenated Cell Not Reportable 05/17/22 03:41 Elliptocytes Not Reportable 05/17/22 03:41 Acanthocytes (Spur) Not Reportable 05/17/22 03:41 Rouleaux Not Reportable 05/17/22 03:41 Hemoglobin C Crystals Not Reportable 05/17/22 03:41 Schistocytes Not Reportable 05/17/22 03:41 Malaria parasites Not Reportable 05/17/22 03:41 [place] Bodies Not Reportable 05/17/22 03:41 Hem Pathologist Commnt No 05/17/22 03:41 PT 13.6 Sec. (12.2-14.9) 04/13/22 04:30 INR 0.94 (0.87-1.13) 04/13/22 04:30 APTT 35.7 Sec. (24.2-36.6) 04/07/22 03:51 ABG pH 7.385 pH Units (7.350-7.450) 05/19/22 06:10 ABG pCO2 51.9 mm Hg 05/19/22 06:10 ABG pO2 70.5 mm Hg (80.0-90.0) L 05/19/22 06:10 ABG HCO3 30.3 mmol/L (20.0-26.0) H 05/19/22 06:10 ABG O2 Saturation 97.6 % (95.0-99.0) 05/19/22 06:10 ABG O2 Content 8.1 (0.0-44) 05/19/22 06:10 ABG Base Excess 4.9 mmol/L (-2.0-3.0) H 05/19/22 06:10 ABG Hemoglobin 5.9 gm/dl (14.0-18.0) L 05/19/22 06:10 ABG Carboxyhemoglobin 1.5 % (0.0-5.0) 05/19/22 06:10 ABG Methemoglobin 0.4 % (0.0-1.5) 05/19/22 06:10 Oxyhemoglobin 95.8 % (95.0-99.0) 05/19/22 06:10 FiO2 55 % 05/19/22 06:10 Sodium 133 mmol/L (137-145) L 05/31/22 04:55 Potassium 4.6 mmol/L (3.6-5.0) 05/31/22 04:55 Chloride 96.1 mmol/L (98-107) L 05/31/22 04:55 Carbon Dioxide 31 mmol/L (22-30) H 05/31/22 04:55 Anion Gap 11 mmol/L 05/31/22 04:55 BUN 16 mg/dL (9-20) 05/31/22 04:55 Creatinine < 0.2 mg/dL (0.8-1.3) L 05/31/22 04:55 Estimated GFR > 60 ml/min 05/31/22 04:55 BUN/Creatinine Ratio 80 % 05/31/22 04:55 Glucose 129 mg/dL (75-100) H 05/31/22 04:55 POC Glucose 123 mg/dL (70-105) H 06/01/22 16:10 Lactic Acid 1.90 mmol/L (0.7-2.0) 04/02/22 19:39 Calcium 7.9 mg/dL (8.4-10.2) L 05/31/22 04:55 Phosphorus 2.70 mg/dL (2.5-4.5) 05/22/22 05:49 Magnesium 1.80 mg/dL (1.7-2.3) 05/22/22 05:49 Total Bilirubin 0.80 mg/dL (0.1-1.2) 04/02/22 19:39 AST 15 units/L (5-40) 04/02/22 19:39 ALT 9 units/L (7-56) 04/02/22 19:39 Alkaline Phosphatase 43 units/L (35-129) 04/02/22 19:39 Total Creatine Kinase 46 units/L (55-170) L 04/08/22 17:47 CK-MB (CK-2) 2.6 ng/mL (0.0-4.0) 04/08/22 17:47 CK-MB (CK-2) Rel Index 5.6 (0-4) H 04/08/22 17:47 Troponin T 0.031 ng/mL (0.00-0.029) H 04/08/22 17:47 C-Reactive Protein 31.20 mg/dL (0.00-1.30) H 05/17/22 03:41 Total Protein 4.6 g/dL (6.3-8.2) L 04/02/22 19:39 Albumin 2.7 g/dL (3.9-5) L 04/02/22 19:39 Albumin/Globulin Ratio 1.4 % 04/02/22 19:39 Triglycerides 80 mg/dL (2-149) 04/02/22 19:39 Cholesterol 94 mg/dL (50-199) 04/02/22 19:39 LDL Cholesterol Direct 27 mg/dL (50-130) L 04/02/22 19:39 HDL Cholesterol 47 mg/dL (40-59) 04/02/22 19:39 Cholesterol/HDL Ratio 2.00 % 04/02/22 19:39 Procalcitonin 1.30 ng/mL (<0.15) 05/17/22 03:41 Urine Color Aracely (Yellow) 05/18/22 03:50 Urine Turbidity Clear (Clear) 05/18/22 03:50 Urine pH 5.0 (5.0-7.0) 05/18/22 03:50 Ur Specific [place] 1.030 (1.003-1.030) 05/18/22 03:50 Urine Protein 30 mg/dl mg/dL (Negative) 05/18/22 03:50 Urine Glucose (UA) Neg mg/dL (Negative) 05/18/22 03:50 Urine Ketones Tr mg/dL (Negative) 05/18/22 03:50 Urine Blood Neg (Negative) 05/18/22 03:50 Urine Nitrite Neg (Negative) 05/18/22 03:50 Urine Bilirubin Neg (Negative) 05/18/22 03:50 Urine Urobilinogen < 2.0 mg/dL (<2.0) 05/18/22 03:50 Ur Leukocyte Esterase Neg (Negative) 05/18/22 03:50 Urine WBC (Auto) 1.0 /HPF (0.0-6.0) 05/18/22 03:50 Urine RBC (Auto) 1.0 /HPF (0.0-6.0) 05/18/22 03:50 U Epithel Cells (Auto) 2.0 /HPF (0-13.0) 05/18/22 03:50 Urine Bacteria (Auto) 1+ /HPF (Negative) 05/18/22 03:50 Hyaline Casts 1 /LPF 04/05/22 17:45 Urine Mucus Few /HPF 05/18/22 03:50 Nasal Screen MRSA (PCR) Negative (Negative) 04/05/22 12:37 Vancomycin Trough 16.2 ug/mL (5.0-20.0) 05/20/22 20:41 Coronavirus (PCR) Negative (Negative) 04/07/22 14:52 Blood Type O POSITIVE 05/31/22 04:58 Antibody Screen Negative 05/31/22 04:58 Crossmatch See Detail 05/31/22 04:58 Perez/IV: Voiding Method Condom Catheter Active Medications - Current Medications Current Medications: Generic Name Dose Route Start Last Admin Trade Name Freq PRN Reason Stop Dose Admin Acetaminophen 650 mg 04/02/22 23:53 05/29/22 10:07 Acetaminophen 325 Mg Tab PO 650 mg Q6H PRN Administration Pain MILD(1-3)/Fever >100.5/FAITH Acetylcysteine 200 mg 05/04/22 20:00 06/01/22 14:09 Acetylcysteine 20% 200 Mg/1 Ml *For Inhalation Use* INHALATION Not Given Q12HRT SEGUNDO Albuterol 2.5 mg 05/05/22 20:00 06/01/22 08:30 Albuterol 2.5 Mg/3 Ml Nebu IH 2.5 mg Q12HRT SEGUNDO Administration Lipase/Protease/Amylase 1 each 05/20/22 15:35 Lipase 10,500/Protease 25,000/Amylase 43,750 (Units) Dr Patterson FEEDTUBE PRN PRN For Clogged Feeding Tube Baclofen 10 mg 05/19/22 20:00 06/01/22 13:16 Baclofen 10 Mg Tab PO 10 mg TID SEGUNDO Administration Bisacodyl 10 mg 04/07/22 09:44 04/12/22 10:06 Bisacodyl 10 Mg Rect Supp HI 10 mg QDAY PRN Administration Constipation Docusate Sodium 100 mg 05/18/22 22:00 06/01/22 09:00 Docusate Sodium 100 Mg/10 Ml Oral Liqd FEEDTUBE 100 mg BID SEGUNDO Administration Famotidine 20 mg 04/06/22 10:00 06/01/22 09:01 Famotidine 20 Mg Tab FEEDTUBE 20 mg BID SEGUNDO Administration Fentanyl 50 mcg 04/04/22 15:56 06/01/22 06:08 Fentanyl 100 Mcg/2 Ml Inj IV 50 mcg Q2HR PRN Administration For CPOT of greater than 3 Fentanyl 1 applic 06/01/22 12:00 06/01/22 13:23 Fentanyl 12 Mcg/Hr Patch 72hr TD 1 applic Q72H SEGUNDO Administration Heparin Sodium (Porcine) 5,000 unit 04/03/22 06:00 06/01/22 13:16 Heparin 5,000 Unit/1 Ml Vial SUB-Q 5,000 unit Q8HR SEGUNDO Administration CEFTAZIDIME/AVIBACTAM 2.5 gm/ 50 mls @ 25 mls/hr 05/26/22 09:00 06/01/22 16:14 Sodium Chloride IV 06/02/22 18:59 25 mls/hr Q8H SEGUNDO Administration Insulin Human Lispro 0 unit 05/05/22 06:00 06/01/22 13:18 Insulin Lispro 100 Unit/Ml SUB-Q Not Given Q8HR [facility] Protocol Magnesium Hydroxide 30 ml 04/02/22 23:53 Magnesium Hydroxide (Mom) Oral Liqd Udc PO Q4H PRN Constipation Metoprolol Tartrate 12.5 mg 05/29/22 22:00 06/01/22 09:01 Metoprolol Tartrate 25 Mg Tab FEEDTUBE 12.5 mg BID SEGUNDO Administration Ondansetron HCl 4 mg 04/02/22 23:53 Ondansetron 4 Mg/2 Ml Inj IV Q8H PRN Nausea And Vomiting Polyethylene Glycol 17 gm 05/18/22 15:00 06/01/22 09:01 Polyethylene Glycol 3350 17 Gm Powder FEEDTUBE 17 gm QDAY SEGUNDO Administration Quetiapine Fumarate 50 mg 05/13/22 11:00 06/01/22 09:01 Quetiapine 100 Mg Tab FEEDTUBE 50 mg BID SEGUNDO Administration Scopolamine 1 each 05/12/22 09:00 05/30/22 09:15 Scopolamine Transdermal Patch 72 Hr TD 1 each Q3D SEGUNDO Administration Senna 8.8 mg 05/18/22 22:00 05/31/22 22:39 Sennosides Oral Liqd 8.8 Mg/5 Ml Oral Liqd FEEDTUBE Not Given QHS SEGUNDO Simple Syrup 15 ml 05/20/22 15:35 Simple Syrup 15 Ml FEEDTUBE PRN PRN Hypoglycemia Simple Syrup 30 ml 05/20/22 15:35 Simple Syrup 15 Ml FEEDTUBE PRN PRN Hypoglycemia Sodium Bicarbonate 325 mg 05/20/22 15:35 Sodium Bicarbonate 325 Mg Tab FEEDTUBE PRN PRN For Clogged Feeding Tube Sodium Chloride 10 ml 04/03/22 10:00 06/01/22 09:02 Sodium Chloride 0.9% 10 Ml Flush Syringe IV 10 ml BID SEGUNDO Administration Sodium Chloride 10 ml 04/02/22 23:53 05/16/22 05:10 Sodium Chloride 0.9% 10 Ml Flush Syringe IV 10 ml PRN PRN Administration LINE FLUSH Nutrition/Malnutrition Assess - Dietary Evaluation Nutrition/Malnutrition Findings: Nutrition Notes Start: 04/04/22 13:13 Freq: Status: Active Protocol: Document 06/01/22 15:11 COLLEEN (Rec: 06/01/22 15:26 COLLEEN [id number]) Nutrition Notes Initial or Follow up Brief Note Current Diagnosis Coronary Artery Disease, Decubitus(Pressure Ulcer), Sepsis,Respiratory Failure Other Pertinent Diagnosis HCAP, ALS, Broncopneumonia, NSTEMI, Cardiomyopathy, ... Current Diet TF-Osmolite 1.5 Inderjit @ 55 ml/hr (since D 05/19). Height 5 ft 4.8 in Weight 49 kg [place] Body Weight (kg) 61.27 BMI 18.1 Weight change and time frame 5.3 Kg body weight loss in 5 days reported. Weight Status Underweight Subjective/Other Information RD consult for routine F/U on TF tolerance/continuation. TF continues as prescribed, no further information at the time, will assess at F/U. Pt continues on Mechanical Ventilation, O2 saturation @ 100%, according to Physical Assessment History notes. Latest modifications on the anthropometric data position Pt again in the Underweight ( Low BMI) cathegory. Pt's Low BMI seems to correspond to a natural body composition, and not related to a sudden loss of body weight nor chronic malnutrition, since no signs of concern were mentioned in the Physical Assessment History or the Progress notes. Percent of energy/protein needs met: Prescribed TF-Osmolite 1.5 Inderjit @ 55 ml/hr provides for energy/protein needs (1,980 Kcal/83 g) during LOS, 102% Kcal; 100% AA. Nutrition Intervention Follow-Up By: 06/15/22 Additional Comments Continue monitoring TF tolerance and BM.
--- NOTE | 2022-06-01 17:29 | Progress Note ---
Assessment and Plan Cultures: 04/02/2022 urine culture: No growth 04/02/2022 sputum culture: Pseudomonas, Enterobacter 04/02/2022 blood culture: Bacillus in 1 set 04/05/2022 blood culture: No growth 04/15/2022 right middle lobe bronchial washings: Pseudomonas aeruginosa 05/15/2022 blood culture: No growth 05/17/2022 blood culture: no growth 05/17/2022 sputum culture: Pseudomonas aeruginosa x 2 types 05/19/2022 sacral wound culture: 2x E coli, MDR, CRE 05/19/2022 sacral wound: E coli, Pseudomonas A/P: 57-year-old man with progressive ALS, recently hospitalized at [facility] and was discharged on hospice, readmitted here with: #Sepsis, new fevers and leukocytosis: Etiology pneumonia v/s sacral decubitus ulcer with eschar. S/P debridement on 05/19/2022. #Hospital-acquired pneumonia: previously completed abx for Pseudomonas, Enterobacter. #Acute v/s now chronic respiratory failure: on the vent. S/P trach, PEG #ALS: Was on home hospice. #Bacillus bacteremia: likely contaminant. Recs: -Discussed with pharmacy to start Avycaz given CRE in cultures along with fevers. -Would recommend 9 days Avycaz. Discussed with Dr. Grayson today, okay to complete 9 days and discharge after dose on . Sameer Ojeda MD [facility] ([facility] O: [phone] F: [phone] Subjective Date of service: 06/01/22 Principal diagnosis: Ac and ch hypercapnic and hypoxemic Resp Failure; ALS; HCAP; Sepsis; NSTEMI Interval history: Afebrile, normal white count. Imaging personally reviewed: Chest x-ray: No acute findings Objective - Exam Narrative Exam: Physical Exam: Constitutional: awake, on the vent, trach + Head, Ears, Nose: Normocephalic, atraumatic. External ears, nose normal Eyes: Conjunctivae/corneas clear. No icterus. No ptosis. Neck: trach + Cardiovascular: S1, S2 + Respiratory: AE fair bilaterally and equal GI: Soft, bowel sounds +, PEG + Musculoskeletal: No pedal edema, no cyanosis. Skin: sacral wound with dressing, not directly examined Hem/Lymphatic: No palpable cervical or supraclavicular nodes. No lymphangitis Psych: no agitation Neurological: awake, on the vent, exam limited - Constitutional Vitals: Vital Signs Temp Pulse Resp BP Pulse Ox 99.2 F 108 H 13 115/79 100 06/01/22 16:33 06/01/22 17:00 06/01/22 17:00 06/01/22 17:00 06/01/22 17:00 Temperature -Last 24 Hours Temperature 99.2 F Temperature 97.9 F Temperature 97.8 F Temperature 99.2 F Temperature 98.3 F Temperature 100.2 F - Labs CBC & Chem 7: 06/01/22 04:14 05/31/22 04:55 Labs: Abnormal lab results 05/31/22 05/31/22 06/01/22 Range/Units 22:45 23:49 04:14 RBC 2.80 L (3.65-5.03) M/mm3 Hgb 7.6 L (11.8-15.2) gm/dl Hct 23.3 L (35.5-45.6) % MCV 83 L (84-94) fl MCH 27 L (28-32) pg RDW 17.8 H (13.2-15.2) % POC Glucose 115 H 115 H (70-105) mg/dL 06/01/22 06/01/22 06/01/22 Range/Units 06:05 07:24 13:11 RBC (3.65-5.03) M/mm3 Hgb (11.8-15.2) gm/dl Hct (35.5-45.6) % MCV (84-94) fl MCH (28-32) pg RDW (13.2-15.2) % POC Glucose 132 H 115 H 125 H (70-105) mg/dL 06/01/22 Range/Units 16:10 RBC (3.65-5.03) M/mm3 Hgb (11.8-15.2) gm/dl Hct (35.5-45.6) % MCV (84-94) fl MCH (28-32) pg RDW (13.2-15.2) % POC Glucose 123 H (70-105) mg/dL
[2022-06-01] MEDS: SENNOSIDES ORAL LIQD 8.8 MG/5 ML ORAL LIQD FEEDTUBE SCH (21:04)
[2022-06-02] MEDS: SODIUM CHLORIDE 0.9% IV SCH ×3 (01:44→17:03)
[2022-06-02] MEDS: CEFTAZIDIME IV SCH ×3 (01:44→17:03)
[2022-06-02] MEDS: AVIBACTAM IV SCH ×3 (01:44→17:03)
[2022-06-02] MEDS: HEPARIN 5,000 UNIT/1 ML VIAL SUB-Q SCH ×3 (05:56→22:43)
[2022-06-02] MEDS: INSULIN LISPRO 100 UNIT/ML SUB-Q SCH ×3 (06:15→22:00)
[2022-06-02] MEDS: ACETYLCYSTEINE 20% 200 MG/1 ML *FOR INHALATION USE INHALATION SCH ×2 (07:42→20:53)
[2022-06-02] MEDS: ALBUTEROL 2.5 MG/3 ML NEBU IH SCH ×2 (07:42→20:53)
[2022-06-02] MEDS: DOCUSATE SODIUM 100 MG/10 ML ORAL LIQD FEEDTUBE SCH ×2 (09:03→22:23)
[2022-06-02] MEDS: FAMOTIDINE 20 MG TAB FEEDTUBE SCH ×2 (09:37→22:42)
[2022-06-02] MEDS: BACLOFEN 10 MG TAB PO SCH ×3 (09:37→23:15)
[2022-06-02] MEDS: QUEtiapine 100 MG TAB FEEDTUBE SCH ×2 (09:37→22:42)
[2022-06-02] MEDS: POLYETHYLENE GLYCOL 3350 17 GM POWDER FEEDTUBE SCH (09:37)
[2022-06-02] MEDS: METOPROLOL TARTRATE 25 MG TAB FEEDTUBE SCH ×2 (09:37→22:41)
[2022-06-02] MEDS: SCOPOLAMINE TRANSDERMAL PATCH 72 HR TD SCH (09:38)
--- NOTE | 2022-06-02 13:03 | Progress Note ---
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, recently hospitalized at [facility] admitted for acute hypoxemic respiratory failure 2/2 pneumonia Neuro: h/o ALS -s/p precedex, fentanyl gtt -Reorientation as needed -Maintain sleep-wake cycle -As needed analgesia -CT head with no acute intracranial process -Per family patient is nonverbal at baseline but responsive -Seroquel BID, baclofen TID Cardiac: Suspect ischemic coronary artery disease, ST, h/o cardiomyopathy -Cardiology consulted, appreciate recommendations -continue conservative management -Blood pressure monitoring per protocol -s/p Vasopressor support with Levophed -Echocardiogram shows ejection fraction of 40 to 45%, mild global hypokinesis of left ventricle -Nitro patch, BB Respiratory: Acute hypoxic respiratory failure -CCM consulted, appreciate recommendations -Intubated on 04/02 with a 7.50 ETT attempt at the lips -s/p trach on 04/14 and s/p bronch on 04/15 -A.m. vent settings: AC Rate 14, TV 500, Peep 12, FiO2 55% (10 L) -See RT notes for titration -Scop patch -VAP bundle -SPO2 monitoring GI: Moderate protein calorie malnutrition -24 hours + 480 mL -PPI -Peg placed 04/14 -NTR consulted for tube feedings -BR: Senokot/colace, MiraLAX : Metabolic Alkalosis -Record intake and output -Renally dose medications -Avoid nephrotoxic medications -Bladder scan q 8 hours -trend BMP ID: Sepsis, HAP (Pseudomonas and Enterobacter tracheal aspirate), blood culture with bacillus species, Stage 4 sacra ulcer, Pseudomonas and VRE in wound culture -Infectious disease, WOCN, and General Surgery consulted, appreciate recommendations -Per infectious disease patient was recently admitted to [facility] but discharged home with home hospice and not giving antibiotics -04/15 Tracheal aspirate with Pseudomonas aeruginosa, Enterobacter aerogenes -04/02 blood culture with bacillus species, 04/05 blood culture NGTD -MRSA (-) -Avycaz 2.5 g every 8 hours until 06/02/2022. PICC line placed -s/p cefepime, merem, Levaquin, and Vanco -05/19 s/p wound debridement, mesh placement to wound bed and wound vac placement and subsequent removal -wound culture with Ecoli -Dressing changes per RN -Monitor WBC and temperature curve Endo: NAD -Avoid hypoglycemia -SSI -Accu-Cheks q 6 Heme: Anemia -Heparin subq -Trend CBC -s/p 2 unit prbc -Transfuse hemoglobin less than 7 -SCDs to BLE while in bed Advance Care Planning - Disease education, care plan, diagnoses, and prognosis were discussed patient's , Carly Lopez, and patient daughter, Kaylee Warren, who translated for #[phone]. They reported that patient was following at [facility] for his ALS and during recent hospitalization at [facility] they were told nothing else can be offered to patient at this time and patient was discharge home with home hospice and PO morphine. First hospice visit was on , 04/01 however, patient became unresponsive 04/02 and they brought in to the hospital. - Goal of care and code status were also addressed at that time. Family wants to wait for a couple days to see how patient respond to current treatment before making a decision. All questions and concerns were addressed at this time. Patient family acknowledged understanding and agreement with care plan. -Patient remains a FULL CODE status. -04/05: Discussion at bedside with interpreting service with Dr. Valdivia and family state they would discuss next steps amongst themselves and let healthcare team know of decisions -04/06: extensive discussion with family ( and son) with Dr. Grayson regarding goals of care -04/08: Extensive discussion with with the use of per diem interpreter line regarding goals of care; no decision made. Possible consult to surgery for trach/PEG early next week. -04/09: Discussion with and her sister with Dr. Grayson and then with Dr. Pineda-> Consulted surgery for trach/peg -04/30 Insurance Denied LTAC, plan for possible SNF placement now. Case management to arrange -Family declined SNF -Awaiting discharge home with ventilator setup for home care due to need for ventilation secondary to trachestomy -DC will be prolonged for 1 week d/t need to remove wound mesh placed by surgery on 05/17 -DC postponed till completion of abx as it was not approved by insurance, DC planned for 06/03 The high probability of a clinically significant, sudden or life threatening deterioration of the [resp] system(s) required my full and direct attention, intervention and personal management. The aggregate critical care time was [60] minutes. 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 Work-up in the emergency department revealed leukocytos is, elevated troponin and hyponatremia and CXR revealed moderate to large pleural effusion on the right. Patient was having agonal breathing in the emergency department and was intubated. Patient was admitted to the hospitalist service with consults to [facility], cardiology and infectious disease for further work-up. Hospital Course to Date: 04/03: Intubated and Sedated on versed gtt, RASS-5. CT head/brain noted with no acute intracranial abnormality. Plan to initiated precededx gtt and wean off versed for a RASS goal of 0 to -2. CT chect also reviewed, findings are most consistent with acute bronchopneumonia. Continue empiric IV Abx, vent adjustment per CCM. ID consulted. Continue to F/U on cultures. Titrate pressor for MAP above 65. Medical records requested from [facility]. 04/04: Remains stable on the vent, easily arousable on precedex gtt, not following commands. Plan for SAT/SBT today. PRN analgesia for CPOT greater than 3. Fevers improved, cultures and procal pending. Continue current IV abx, ID also consulted. Remains on low dose pressors, titrate pressors for a MAP above 65. 04/05: Long discussion with family with use of translation phone with [facility] regarding goals of care. Family to have meeting amongst themselves and informed care team of decisions. Fentanyl drip added for respiratory distress. Remains on Precedex drip. Antibiotics per ID. Given 2L NS bolus with levophed gtt 04/06: Family discussion with Dr. Grayson for goals of care. CXR shows possible mucus plug, continue CPT as FiO2 is being able to be weaned. Potassium repleted. Weaning fentnyl gtt. 04/07: Ultrasound guided thoracentesis today scheduled, inadequate amount of pl eural effusion on so not completed. Patient was started on Levophed overnight which was weaned off this morning however had to be started twice a day. Remains on fentanyl and Precedex. Cardiology discontinued BB and ACEi in setting of hypotension. 04/08: COVID-19 PCR negative. Routine EEG ordered by cardiology which showed ST changes, cardiology aware. They will continue conservative treatment. Repeat troponins 0.030 which are less than admit of 0.048. Dr. Grayson had a long discussion with with the use of per diem interpreter today at bedside and has not made a decision regarding goals of care. Possible consult to surgery for trach/PEG early next week. Continues to require Precedex and fentanyl drip for sedation. Carvedilol/lisinopril discontinued as patient is continuously on Lev ophed. 04/09: No acute events reported overnight, remains on fentanyl, Precedex and Levophed drips. Dr. Grayson and Dr. Pineda updated family at bedside extensively today. Consulted surgery for trach/PEG. COVID-19 PCR negative. 04/10: Patient noted to have desaturation episodes, FiO2 increased slightly to 35%. Will add Mucomyst. Remains on fentanyl and Precedex. Off of Levophed. Surgery consulted for trach/PEG. 04/11: FiO2 increased over night likely related to hypoxia, continues on fent gtt, weaning precedex gtt as he is also on Seroquel. Will d/w [facility] re scheduled or prn oxycodone 04/12: Periods of hypoxia and tachycardia this am. Symptoms improved post deep suction and tracheal lavage, Repeat CXR noted with no significant change. Continue CPT and mucomyst. Plan for possible trach/PEG tomorrow by general surgery. 04/13: Remains stable on the vent. Patient is wake and tracking but does not follow simple commands. No report of hypoxia from overnight, continue CPT and mucomyst. Plan for track and PEG today by General Surgery. Plan for LTAC placement post procedure, case management to arrange. 04/14: VIRGILIO overnight, Trach and PEG postponed for today by general surgery. Plan for LTAC placement post procedure, case management to arrange. 04/15: S/p Trach and PEG. Up to 80% FiO2 this am, this am CXR noted suggesting possible mucus plug. D/W CCM plan for bronch today. Continue CPT and mucomyst. Plan of care thoroughly discussed with patient's and son (who translated for ) at the bedside. Per , produce weigher had already discussed the risks and benefits of the procedure yesterday. She verbalized understanding and agreed with procedure and current care plan, consent signed. Okay to use PEG-tube for meds this am, resume TF once okay by general Surgery. Case management to arrange LTAC placement. 04/16: s/p Bronchocopy by CCM. FiO2 down to 60%, angela 10 this am. This am CXR with moderate improvement. Continue CPT and mucomyst, wean Fio2 as tolerated for SPO2 above 92%. Patient is tolerating TF, advance to goal as ordered. Possible LTAC placement, case management to arrange. 04/17: VIRGILIO overnight. remains stable on the vent, recent CXR and this am ABG no liv. Continue CPT and mucomyst, wean Fio2 as tolerated. 04/18: Remains stable on the vent, Fio2 down to 55% and peep of 8 this am. Continue to wean as tolerated, CPT, and mucomyst. Dsiposition- LTAC placement, case management to arrange. 04/19: No acute events overnight. Continue current management. 04/20: No acute events overnight, continue current management 04/21: Patient had chest ultrasound which showed trace pleural effusions, chest x-ray improved after the addition of Mucomyst yesterday. FiO2 55-65%. No acute events overnight. more interactive today. 04/22: Seroquel changed to BID, FiO2 was increased to 60%. RT increased FIO2 to 100 d/t desaturation into the 80s but was able to wean down. CCM increased PEEP and decreased FiO2. 04/23: CCM increase PEEP, no acute events reported overnight. 04/24: Spoke to RT about decreasing FiO2 as tolerated. No acute events reported overnight. Continue supportive management. 04/25: Weaning as tolerated. no acute events overnight. RT to attempt CPAP again today 04/26: VIRGILIO overnight. Patient failed PSV trial again this morning. Continue supportive management and daily PST trial. 04/27: Patient failed PSV trial again this am due to episodes of apnea. Continue daily PSV trial as tolerated. Case management to arrange LTAC placement 04/28: Remains stable. Continue daily PSV trial as tolerated. Awaiting approval for LTAC 04/29: VIRGILIO overnight. Continue daily PSV trial. Awaiting approval for LTAC, case management to arrange. 04/30: Patient continue to fail PSV trial. Per case management patient was denied for LTAC, now possible SNF placement. Case managemen to arrange. Continue supportive measures and daily PSV trial as tolerated. 05/01: VIRGILIO overnight. Continue supportive measures and daily PSV trial as tolerated. Possible SNF placement. 05/02: Continue supportive measures and daily PSV trial as tolerated. Possible SN F placement, case management to arrange 05/03: no acute events overnight, CM arranging home vent setup. Family declined SNF. 05/04: RN/RT reports thin secretions, increase in FiO2 for decreased oxygen on ABG. No acute events overnight. 05/05: Family scheduled for teaching session today at 2pm. Increase in FiO2 overnight to 45%. Awaiting vent setup for home care for ventilation secondary to tracheostomy. 05/06: No acute events reported overnight, T-max 100.9. FiO2 45%. Awaiting discharge home with vent when teaching is completed 05/07: No acute events reported overnight, Awaiting discharge home with vent when teaching is completed 05/08: No acute events reported overnight, Awaiting discharge home with vent when teaching is completed 05/09: no acute events reported overnight. Ordered routine labs today. Family continuing with vent training. Anticipate discharge home this week possibly on . 05/10: VIRGILIO overnight. Continue current supportive measures and family training at the bedside. Plan for discharge home tomorrow. 05/11: Discharge home today. heavy equipment supervisor at 12pm 05/12: Discharge cancelled yesterday. Patient desated on home vent at max setting. Home vent is not sufficient to support patient's ventilation need. D/w CCM, Dr. Valdivia, who recommend SNF placement at this time. Patient's family notified at the bedside. All questions and concerns were address at this time. Further dis cussion on alternative placement to be determine and discussed with patient's family and case management today. The respiratory therapist from [facility] is schedule to come at 1400 today for further assessment. 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; WOCN consult placed 05-18 ID and gen surg consult 05/19: s/p sacral wound debridement with Dr. Jerome with wound vac and mesh placement. Per Dr. Jerome patient will need to either stay in the hospital 1 week to be taken back to the OR for removal of mesh on wound or may be discharged but will have to visit the wound clinic in 2 weeks. We will alert caser. No acute events overnight. 05/20: Remains with leukocytosis, wound VAC in place. Discharge requested to be postponed by surgery. Remains on meropenem and vancomycin. No acute events r eported overnight. 05/21: IV abx deescalated by ID, no acute events overnight. Continue current isma gement. 05/22: No acute events reported overnight. Hyponatremia noted. Decreased free water flush. We will repeat labs in 48 hours. 05/23: no acute events overnight. 05/24/22 -patient seen today at bedside. Patients eyes open with no purposeful response. i reviewed lab, mar, and v/s. potassium 5.1-kayexalate given times 1- will repeat BMP in am. Pt remain on trach to vent.V/s stable. 05/25/22- Patient has significant history of ALS and as a result has remained on mechanical ventilation. Due to underlying neurological condition patient will require HFCWO vest. The patient has had trials of CoughAssist therapy with flutter wave CPT multiple suctioning while in the hospital but all of these have unfortunately failed to resolve his current condition and will benefit from the HFCWO vest. - patient asleep at the time of assessment. On trach to vent. The plan is to discharge patient on home vent. Reviewed specialist recommendations. We will follow-up with plan of care. Elevated potassium has resolved. Hyponatremia resolved. 05/26: VIRGILIO overnight. Remains afebrile, stable on home vent, VSS. Continue current IV abx, now on Avycaz per ID. 05/27: Remains stable and afebrile. ID recommendations noted, okay to discharge patient home with IV Abx, Avycaz, [id number]. PICC line ordered. Case management to arrange for IV abx at home. Possible discharge home on Tuesday. 05/28 Back on hospital vent overnight due to increase WOB and hypoxia. Patient is stable on low vent setting this am. Repeat CXR pending. D/W CCM plan to switch and optimize patient on his home vent. Continue CPT, mucomyst, and good pulmonary hygiene. PICC inserted, continue current IV Abx per ID. Possible discharge home on Tuesday. 05/29: Back on home vent, stable on 10L flow this am. Repeat CXR noted with no significant change. Continue current supportive care. Case management note and ID recommendations noted. Home infusion IV Abx not covered by insurance, appealed in process. Case management to F/U. Guarded discharge for Tuesday. 05/30: VIRGILIO overnight. Remains stable on home vent. Continue current supportive care. Guarded discharge, awaiting appeal response from insurance for IV abx at home. 05/31: Patient had desatting issues and was placed on hospital vent but will be placed back on home vent with troubleshooting. Given 1 unit PRBC today. Possible discharge on Tuesday as patient antibiotics not approved by insurance and will complete infusion on Tuesday. 06/01: abx to end on tuesday with DC to home on . No acute events overnight 06/02: No acute events overnight. Hospitalist Physical - Physical exam Narrative exam: General appearance: Present: no acute distress, cachectic, other (trach/vent) - EENT Eyes: Present: PERRL, EOM intact ENT: dentition normal - Respiratory Respiratory effort: normal Respiratory: bilateral: diminished - Cardiovascular Rhythm: regular Heart Sounds: Present: S1 & S2. Absent: systolic murmur, diastolic murmur - Extremities Extremities: no ischemia, pulses intact, pulses symmetrical, normal temperature, normal color Peripheral Pulses: within normal limits - Abdominal General gastrointestinal: soft, non-tender, non-distended, normal bowel sounds - Integumentary Integumentary: Present: warm, dry - Psychiatric Psychiatric: cooperative - Neurologic Neurologic: other (moves BUE, intact cough/gag, PERRL) - Allied Health Allied health notes reviewed: nursing, RT, social work - Constitutional Vitals: Temp Pulse Resp BP Pulse Ox 98.9 F 79 14 92/61 98 06/02/22 12:00 06/02/22 12:25 06/02/22 12:00 06/02/22 12:06/02/22 12:25 General appearance: Present: no acute distress, cachectic, other (trach/vent) HEART Score - HEART Score Troponin: Troponin T 0.031 ng/mL (0.00-0.029) H 04/08/22 17:47 Results - Labs CBC & Chem 7: 06/01/22 04:14 05/31/22 04:55 Labs: Laboratory Last Values WBC 6.7 K/mm3 (4.5-11.0) 06/01/22 04:14 RBC 2.80 M/mm3 (3.65-5.03) L 06/01/22 04:14 Hgb 7.6 gm/dl (11.8-15.2) L 06/01/22 04:14 Hct 23.3 % (35.5-45.6) L 06/01/22 04:14 MCV 83 fl (84-94) L 06/01/22 04:14 MCH 27 pg (28-32) L 06/01/22 04:14 MCHC 33 % (32-34) 06/01/22 04:14 RDW 17.8 % (13.2-15.2) H 06/01/22 04:14 Plt Count 342 K/mm3 (140-440) 06/01/22 04:14 Lymph % (Auto) 11.9 % (13.4-35.0) L 05/25/22 13:51 Bill[place] % (Auto) 5.6 % (0.0-7.3) 05/25/22 13:51 Eos % (Auto) 0.9 % (0.0-4.3) 05/25/22 13:51 Baso % (Auto) 0.4 % (0.0-1.8) 05/25/22 13:51 Lymph # (Auto) 1.2 K/mm3 (1.2-5.4) 05/25/22 13:51 Bill[place] # (Auto) 0.6 K/mm3 (0.0-0.8) 05/25/22 13:51 Eos # (Auto) 0.1 K/mm3 (0.0-0.4) 05/25/22 13:51 Baso # (Auto) 0.0 K/mm3 (0.0-0.1) 05/25/22 13:51 Add Manual Diff Complete 05/17/22 03:41 Total Counted 100 05/17/22 03:41 Seg Neutrophils % 81.2 % (40.0-70.0) H 05/25/22 13:51 Seg Neuts % (Manual) 96.0 % (40.0-70.0) H 05/17/22 03:41 Band Neutrophils % 0 % 05/17/22 03:41 Lymphocytes % (Manual) 1.0 % (13.4-35.0) L 05/17/22 03:41 Reactive Lymphs % (Man) 0 % 05/17/22 03:41 Monocytes % (Manual) 3.0 % (0.0-7.3) 05/17/22 03:41 Eosinophils % (Manual) 0 % (0.0-4.3) 05/17/22 03:41 Basophils % (Manual) 0 % (0.0-1.8) 05/17/22 03:41 Metamyelocytes % 0 % 05/17/22 03:41 Myelocytes % 0 % 05/17/22 03:41 Promyelocytes % 0 % 05/17/22 03:41 Blast Cells % 0 % 05/17/22 03:41 Nucleated RBC % Not Reportable 05/17/22 03:41 Seg Neutrophils # 8.4 K/mm3 (1.8-7.7) H 05/25/22 13:51 Seg Neutrophils # Man 15.6 K/mm3 (1.8-7.7) H 05/17/22 03:41 Band Neutrophils # 0.0 K/mm3 05/17/22 03:41 Lymphocytes # (Manual) 0.2 K/mm3 (1.2-5.4) L 05/17/22 03:41 Abs React Lymphs (Man) 0.0 K/mm3 05/17/22 03:41 Monocytes # (Manual) 0.5 K/mm3 (0.0-0.8) 05/17/22 03:41 Eosinophils # (Manual) 0.0 K/mm3 (0.0-0.4) 05/17/22 03:41 Basophils # (Manual) 0.0 K/mm3 (0.0-0.1) 05/17/22 03:41 Metamyelocytes # 0.0 K/mm3 05/17/22 03:41 Myelocytes # 0.0 K/mm3 05/17/22 03:41 Promyelocytes # 0.0 K/mm3 05/17/22 03:41 Blast Cells # 0.0 K/mm3 05/17/22 03:41 WBC Morphology Not Reportable 05/17/22 03:41 Hypersegmented Neuts Not Reportable 05/17/22 03:41 Hyposegmented Neuts Not Reportable 05/17/22 03:41 Hypogranular Neuts Not Reportable 05/17/22 03:41 Smudge Cells Not Reportable 05/17/22 03:41 Toxic Granulation Not Reportable 05/17/22 03:41 Toxic Vacuolation Not Reportable 05/17/22 03:41 Dohle Bodies Not Reportable 05/17/22 03:41 Pelger-Huet Anomaly Not Reportable 05/17/22 03:41 Terry Rods Not Reportable 05/17/22 03:41 Platelet Estimate Consistent w auto 05/17/22 03:41 Clumped Platelets Not Reportable 05/17/22 03:41 Plt Clumps, EDTA Not Reportable 05/17/22 03:41 Large Platelets Not Reportable 05/17/22 03:41 Giant Platelets Not Reportable 05/17/22 03:41 Platelet Satelliting Not Reportable 05/17/22 03:41 Plt Morphology Comment Not Reportable 05/17/22 03:41 RBC Morphology Not Reportable 05/17/22 03:41 Dimorphic RBCs Not Reportable 05/17/22 03:41 Polychromasia Not Reportable 05/17/22 03:41 Hypochromasia Not Reportable 05/17/22 03:41 Poikilocytosis Not Reportable 05/17/22 03:41 Anisocytosis 1+ 05/17/22 03:41 Microcytosis Not Reportable 05/17/22 03:41 Macrocytosis Not Reportable 05/17/22 03:41 Spherocytes Not Reportable 05/17/22 03:41 Pappenheimer Bodies Not Reportable 05/17/22 03:41 Sickle Cells Not Reportable 05/17/22 03:41 Target Cells Not Reportable 05/17/22 03:41 Tear Drop Cells Not Reportable 05/17/22 03:41 Ovalocytes Not Reportable 05/17/22 03:41 Helmet Cells Not Reportable 05/17/22 03:41 [place] Bodies Not Reportable 05/17/22 03:41 [place] Rings Not Reportable 05/17/22 03:41 Cheikh Cells Not Reportable 05/17/22 03:41 Bite Cells Not Reportable 05/17/22 03:41 Crenated Cell Not Reportable 05/17/22 03:41 Elliptocytes Not Reportable 05/17/22 03:41 Acanthocytes (Spur) Not Reportable 05/17/22 03:41 Rouleaux Not Reportable 05/17/22 03:41 Hemoglobin C Crystals Not Reportable 05/17/22 03:41 Schistocytes Not Reportable 05/17/22 03:41 Malaria parasites Not Reportable 05/17/22 03:41 [place] Bodies Not Reportable 05/17/22 03:41 Hem Pathologist Commnt No 05/17/22 03:41 PT 13.6 Sec. (12.2-14.9) 04/13/22 04:30 INR 0.94 (0.87-1.13) 04/13/22 04:30 APTT 35.7 Sec. (24.2-36.6) 04/07/22 03:51 ABG pH 7.385 pH Units (7.350-7.450) 05/19/22 06:10 ABG pCO2 51.9 mm Hg 05/19/22 06:10 ABG pO2 70.5 mm Hg (80.0-90.0) L 05/19/22 06:10 ABG HCO3 30.3 mmol/L (20.0-26.0) H 05/19/22 06:10 ABG O2 Saturation 97.6 % (95.0-99.0) 05/19/22 06:10 ABG O2 Content 8.1 (0.0-44) 05/19/22 06:10 ABG Base Excess 4.9 mmol/L (-2.0-3.0) H 05/19/22 06:10 ABG Hemoglobin 5.9 gm/dl (14.0-18.0) L 05/19/22 06:10 ABG Carboxyhemoglobin 1.5 % (0.0-5.0) 05/19/22 06:10 ABG Methemoglobin 0.4 % (0.0-1.5) 05/19/22 06:10 Oxyhemoglobin 95.8 % (95.0-99.0) 05/19/22 06:10 FiO2 55 % 05/19/22 06:10 Sodium 133 mmol/L (137-145) L 05/31/22 04:55 Potassium 4.6 mmol/L (3.6-5.0) 05/31/22 04:55 Chloride 96.1 mmol/L (98-107) L 05/31/22 04:55 Carbon Dioxide 31 mmol/L (22-30) H 05/31/22 04:55 Anion Gap 11 mmol/L 05/31/22 04:55 BUN 16 mg/dL (9-20) 05/31/22 04:55 Creatinine < 0.2 mg/dL (0.8-1.3) L 05/31/22 04:55 Estimated GFR > 60 ml/min 05/31/22 04:55 BUN/Creatinine Ratio 80 % 05/31/22 04:55 Glucose 129 mg/dL (75-100) H 05/31/22 04:55 POC Glucose 118 mg/dL (70-105) H 06/02/22 06:13 Lactic Acid 1.90 mmol/L (0.7-2.0) 04/02/22 19:39 Calcium 7.9 mg/dL (8.4-10.2) L 05/31/22 04:55 Phosphorus 2.70 mg/dL (2.5-4.5) 05/22/22 05:49 Magnesium 1.80 mg/dL (1.7-2.3) 05/22/22 05:49 Total Bilirubin 0.80 mg/dL (0.1-1.2) 04/02/22 19:39 AST 15 units/L (5-40) 04/02/22 19:39 ALT 9 units/L (7-56) 04/02/22 19:39 Alkaline Phosphatase 43 units/L (35-129) 04/02/22 19:39 Total Creatine Kinase 46 units/L (55-170) L 04/08/22 17:47 CK-MB (CK-2) 2.6 ng/mL (0.0-4.0) 04/08/22 17:47 CK-MB (CK-2) Rel Index 5.6 (0-4) H 04/08/22 17:47 Troponin T 0.031 ng/mL (0.00-0.029) H 04/08/22 17:47 C-Reactive Protein 31.20 mg/dL (0.00-1.30) H 05/17/22 03:41 Total Protein 4.6 g/dL (6.3-8.2) L 04/02/22 19:39 Albumin 2.7 g/dL (3.9-5) L 04/02/22 19:39 Albumin/Globulin Ratio 1.4 % 04/02/22 19:39 Triglycerides 80 mg/dL (2-149) 04/02/22 19:39 Cholesterol 94 mg/dL (50-199) 04/02/22 19:39 LDL Cholesterol Direct 27 mg/dL (50-130) L 04/02/22 19:39 HDL Cholesterol 47 mg/dL (40-59) 04/02/22 19:39 Cholesterol/HDL Ratio 2.00 % 04/02/22 19:39 Procalcitonin 1.30 ng/mL (<0.15) 05/17/22 03:41 Urine Color Aracely (Yellow) 05/18/22 03:50 Urine Turbidity Clear (Clear) 05/18/22 03:50 Urine pH 5.0 (5.0-7.0) 05/18/22 03:50 Ur Specific [place] 1.030 (1.003-1.030) 05/18/22 03:50 Urine Protein 30 mg/dl mg/dL (Negative) 05/18/22 03:50 Urine Glucose (UA) Neg mg/dL (Negative) 05/18/22 03:50 Urine Ketones Tr mg/dL (Negative) 05/18/22 03:50 Urine Blood Neg (Negative) 05/18/22 03:50 Urine Nitrite Neg (Negative) 05/18/22 03:50 Urine Bilirubin Neg (Negative) 05/18/22 03:50 Urine Urobilinogen < 2.0 mg/dL (<2.0) 05/18/22 03:50 Ur Leukocyte Esterase Neg (Negative) 05/18/22 03:50 Urine WBC (Auto) 1.0 /HPF (0.0-6.0) 05/18/22 03:50 Urine RBC (Auto) 1.0 /HPF (0.0-6.0) 05/18/22 03:50 U Epithel Cells (Auto) 2.0 /HPF (0-13.0) 05/18/22 03:50 Urine Bacteria (Auto) 1+ /HPF (Negative) 05/18/22 03:50 Hyaline Casts 1 /LPF 04/05/22 17:45 Urine Mucus Few /HPF 05/18/22 03:50 Nasal Screen MRSA (PCR) Negative (Negative) 04/05/22 12:37 Vancomycin Trough 16.2 ug/mL (5.0-20.0) 05/20/22 20:41 Coronavirus (PCR) Negative (Negative) 04/07/22 14:52 Blood Type O POSITIVE 05/31/22 04:58 Antibody Screen Negative 05/31/22 04:58 Crossmatch See Detail 05/31/22 04:58 Perez/IV: Voiding Method Condom Catheter Active Medications - Current Medications Current Medications: Generic Name Dose Route Start Last Admin Trade Name Freq PRN Reason Stop Dose Admin Acetaminophen 650 mg 04/02/22 23:53 05/29/22 10:07 Acetaminophen 325 Mg Tab PO 650 mg Q6H PRN Administration Pain MILD(1-3)/Fever >100.5/FAITH Acetylcysteine 200 mg 05/04/22 20:00 06/02/22 07:42 Acetylcysteine 20% 200 Mg/1 Ml *For Inhalation Use* INHALATION 200 mg Q12HRT SEGUNDO Administration Albuterol 2.5 mg 05/05/22 20:00 06/02/22 07:42 Albuterol 2.5 Mg/3 Ml Nebu IH 2.5 mg Q12HRT SEGUNDO Administration Lipase/Protease/Amylase 1 each 05/20/22 15:35 Lipase 10,500/Protease 25,000/Amylase 43,750 (Units) Dr Patterson FEEDTUBE PRN PRN For Clogged Feeding Tube Baclofen 10 mg 05/19/22 20:00 06/02/22 09:37 Baclofen 10 Mg Tab PO 10 mg TID SEGUNDO Administration Bisacodyl 10 mg 04/07/22 09:44 04/12/22 10:06 Bisacodyl 10 Mg Rect Supp NV 10 mg QDAY PRN Administration Constipation Docusate Sodium 100 mg 05/18/22 22:00 06/02/22 09:03 Docusate Sodium 100 Mg/10 Ml Oral Liqd FEEDTUBE Not Given BID SEGUNDO Famotidine 20 mg 04/06/22 10:00 06/02/22 09:37 Famotidine 20 Mg Tab FEEDTUBE 20 mg BID SEGUNDO Administration Fentanyl 50 mcg 04/04/22 15:56 06/01/22 06:08 Fentanyl 100 Mcg/2 Ml Inj IV 50 mcg Q2HR PRN Administration For CPOT of greater than 3 Fentanyl 1 applic 06/01/22 12:00 06/01/22 13:23 Fentanyl 12 Mcg/Hr Patch 72hr TD 1 applic Q72H SEGUNDO Administration Heparin Sodium (Porcine) 5,000 unit 04/03/22 06:00 06/02/22 05:56 Heparin 5,000 Unit/1 Ml Vial SUB-Q 5,000 unit Q8HR SEGUNDO Administration CEFTAZIDIME/AVIBACTAM 2.5 gm/ 50 mls @ 25 mls/hr 05/26/22 09:00 06/02/22 09:47 Sodium Chloride IV 06/02/22 18:59 25 mls/hr Q8H SEGUNDO Administration Insulin Human Lispro 0 unit 05/05/22 06:00 06/02/22 06:15 Insulin Lispro 100 Unit/Ml SUB-Q Not Given Q8HR [facility] Protocol Magnesium Hydroxide 30 ml 04/02/22 23:53 Magnesium Hydroxide (Mom) Oral Liqd Udc PO Q4H PRN Constipation Metoprolol Tartrate 12.5 mg 05/29/22 22:00 06/02/22 09:37 Metoprolol Tartrate 25 Mg Tab FEEDTUBE 12.5 mg BID SEGUNDO Administration Ondansetron HCl 4 mg 04/02/22 23:53 Ondansetron 4 Mg/2 Ml Inj IV Q8H PRN Nausea And Vomiting Polyethylene Glycol 17 gm 05/18/22 15:00 06/02/22 09:37 Polyethylene Glycol 3350 17 Gm Powder FEEDTUBE 17 gm QDAY SEGUNDO Administration Quetiapine Fumarate 50 mg 05/13/22 11:00 06/02/22 09:37 Quetiapine 100 Mg Tab FEEDTUBE 50 mg BID SEGUNDO Administration Scopolamine 1 each 05/12/22 09:00 06/02/22 09:38 Scopolamine Transdermal Patch 72 Hr TD 1 each Q3D SEGUNDO Administration Senna 8.8 mg 05/18/22 22:00 06/01/22 21:04 Sennosides Oral Liqd 8.8 Mg/5 Ml Oral Liqd FEEDTUBE Not Given QHS SEGUNDO Simple Syrup 15 ml 07/14/22 15:35 Simple Syrup 15 Ml FEEDTUBE PRN PRN Hypoglycemia Simple Syrup 30 ml 05/20/22 15:35 Simple Syrup 15 Ml FEEDTUBE PRN PRN Hypoglycemia Sodium Bicarbonate 325 mg 05/20/22 15:35 Sodium Bicarbonate 325 Mg Tab FEEDTUBE PRN PRN For Clogged Feeding Tube Sodium Chloride 10 ml 04/03/22 10:00 06/02/22 09:48 Sodium Chloride 0.9% 10 Ml Flush Syringe IV 10 ml BID SEGUNDO Administration Sodium Chloride 10 ml 04/02/22 23:53 05/16/22 05:10 Sodium Chloride 0.9% 10 Ml Flush Syringe IV 10 ml PRN PRN Administration LINE FLUSH Nutrition/Malnutrition Assess - Dietary Evaluation Nutrition/Malnutrition Findings: Nutrition Notes Start: 04/04/22 13:13 Freq: Status: Active Protocol: Document 06/01/22 15:11 COLLEEN (Rec: 06/01/22 15:26 COLLEEN [id number]) Nutrition Notes Initial or Follow up Brief Note Current Diagnosis Coronary Artery Disease, Decubitus(Pressure Ulcer), Sepsis,Respiratory Failure Other Pertinent Diagnosis HCAP, ALS, Broncopneumonia, NSTEMI, Cardiomyopathy, ... Current Diet TF-Osmolite 1.5 Inderjit @ 55 ml/hr (since D 05/19). Height 5 ft 4.8 in Weight 49 kg [place] Body Weight (kg) 61.27 BMI 18.1 Weight change and time frame 5.3 Kg body weight loss in 5 days reported. Weight Status Underweight Subjective/Other Information RD consult for routine F/U on TF tolerance/continuation. TF continues as prescribed, no further information at the time, will assess at F/U. Pt continues on Mechanical Ventilation, O2 saturation @ 100%, according to Physical Assessment History notes. Latest modifications on the anthropometric data position Pt again in the Underweight ( Low BMI) cathegory. Pt's Low BMI seems to correspond to a natural body composition, and not related to a sudden loss of body weight nor chronic malnutrition, since no signs of concern were mentioned in the Physical Assessment History or the Progress notes. Percent of energy/protein needs met: Prescribed TF-Osmolite 1.5 Inderjit @ 55 ml/hr provides for energy/protein needs (1,980 Kcal/83 g) during LOS, 102% Kcal; 100% AA. Nutrition Intervention Follow-Up By: 06/15/22 Additional Comments Continue monitoring TF tolerance and BM.
--- NOTE | 2022-06-02 13:03 | Discharge Summary ---
Providers - Providers Date of Admission: 04/02/22 23:54 Date of discharge: 06/02/22 Attending physician: NORM GRAYSON MD 04/02/22 23:53 Consult to Physician [CONS] Routine Comment: Dr. Hollis spoke with Dr. Valdivia @ [id number] Consulting Provider: KARAN IBRAHIM Physician Instructions: Reason For Exam: Acute resp. Failure 04/02/22 23:54 Consult to Dietitian/Nutrition [CONS] Routine Physician Instructions: Reason For Exam: Reason for Consult: Diet education 04/03/22 06:46 Consult to Cardiology [CONS] Routine Consulting Provider: INA BARILLAS Reason For Exam: Elevated troponin 04/03/22 08:03 Consult to Dietitian/Nutrition [CONS] Routine Physician Instructions: Reason For Exam: Reason for Consult: Write/Manage Tube Feeding 04/03/22 17:08 Consult to Physician [CONS] Routine Comment: Consulting Provider: TRESA AUSTIN Physician Instructions: Reason For Exam: Pneumonia 04/09/22 15:09 Consult to Physician [CONS] Routine Comment: Consulting Provider: TONI GOODEN Physician Instructions: Spoke to Dr. Gooden/asia Reason For Exam: Tracheostomy & PEG placement 05/17/22 10:28 Consult to Wound/ET Nurse [CONS] Urgent Reason For Exam: wound eval- NEW sacral wound; needs debrided 05/17/22 10:34 Consult to Dietitian/Nutrition [CONS] Routine Physician Instructions: Reason For Exam: new sacral wound; eval microntrients and calories Reason for Consult: Malnutrition 05/17/22 15:43 Consult to Physician [CONS] Urgent Comment: SPOKE WITH KINDRA QUIGLEY/ASIA Consulting Provider: MATTY EDOUARD Physician Instructions: Reason For Exam: persistent fevers 05/18/22 11:01 Consult to Physician [CONS] Stat Comment: called office/ gilda Consulting Provider: LOLI WALLACE Physician Instructions: Reason For Exam: wound eval 05/26/22 17:48 Consult to PICC Line RN [CONS] 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 Type Line:: Midline 05/26/22 18:15 Consult to Case Management [CONS] Routine Services Needed at Discharge: Home Health Services Additional Physician Instructions: Sameer Austin MD [facility] M: [phone] O: [phone] F: [phone] Outpatient parenteral antibiotic therapy orders Diagnosis: Sacral wound infection Antibiotic administration: Avycaz 2.5 g every 8 hours until 06/04/2022 Line: PICC Lab monitoring: CBC with differential, CMP once per week preferably on Tuesday or Tuesday For critical labs, call office: [phone] Sameer Austin Primary care physician: LÓPEZ PHILLIPS Hospitalization Condition: Stable Hospital course: This is a 57-year-old male with ALS who presented to the emergency department on 04/02 with complaints of altered mental status and respiratory distress he was recently discharged home from [facility] with a diagnosis of pneumonia and elevated troponins. Work-up in the emergency department revealed leukocytosis, elevated troponin and hyponatremia and CXR revealed moderate to large pleural effusion on the right. Patient was having agonal breathing in the emergency department and was intubated. Patient was admitted to the hospitalist service with consults to CCM, cardiology and infectious disease for further work-up. Patient had an extensive and complicated stay receiving thoracentesis, bronchoscopy, eventual trach and PEG tube placement. Patient also required vasopressor support during stay however has been weaned off for several days now. He was treated for Pseudomonas aeruginosa and Enterobacter aeruginosa pneumonia, MDR and CRE and sacral wounds. Patient been treated with extensive antibiotics with last being Avycez. Patient also had a stage IV sacral ulcer s/p debridement and wound VAC placement. Patient had prolonged course on the ventilator and eventually received a trach and PEG and was eventually able to be maintained on home ventilator. Patient will be discharged home with home vent and home health therapy per family wishes. Assessment and Plan Neuro: h/o ALS -s/p precedex, fentanyl gtt -CT head with no acute intracranial process -Per family patient is nonverbal at baseline but responsive -Seroquel BID, baclofen TID Cardiac: Suspect ischemic coronary artery disease, ST, h/o cardiomyopathy -Cardiology consulted, appreciate recommendations -Blood pressure monitoring per protocol -s/p Vasopressor support with Levophed -Echocardiogram shows ejection fraction of 40 to 45%, mild global hypokinesis of left ventricle -Nitro patch, BB Respiratory: Acute hypoxic respiratory failure -CCM consulted, appreciate recommendations -Intubated on 04/02 with a 7.50 ETT -s/p trach on 04/14 and s/p bronch on 04/15 -Continue home ventilatory settings -Scopolamine patch GI: Moderate protein calorie malnutrition -24 hours + 480 mL -PPI -Peg placed 04/14 -NTR consulted for tube feedings -BR: Senokot/colace, MiraLAX : Metabolic Alkalosis -Record intake and output -Renally dose medications -Avoid nephrotoxic medications -Bladder scan q 8 hours -trend BMP ID: Sepsis, HAP (Pseudomonas and Enterobacter tracheal aspirate), blood culture with bacillus species, Stage 4 sacra ulcer, Pseudomonas and VRE in wound culture -Infectious disease, WOCN, and General Surgery consulted, appreciate recommendations -Per infectious disease patient was recently admitted to [facility] but discharged home with home hospice and not giving antibiotics -04/15 Tracheal aspirate with Pseudomonas aeruginosa, Enterobacter aerogenes -04/02 blood culture with bacillus species, 04/05 blood culture NGTD -MRSA (-) -Avycaz 2.5 g every 8 hours until 06/02/2022. PICC line placed -s/p cefepime, merem, Levaquin, and Vanco -05/19 s/p wound debridement, mesh placement to wound bed and wound vac placement and subsequent removal -wound culture with Ecoli -Dressing changes per RN -Monitor WBC and temperature curve Heme: Anemia -Heparin subq -Trend CBC -s/p 2 unit prbc -Transfuse hemoglobin less than 7 -SCDs to BLE while in bed Advance Care Planning - Disease education, care plan, diagnoses, and prognosis were discussed patient's , Carly Lopez, and patient daughter, Kaylee Warren, who translated for #[phone]. They reported that patient was following at [facility] for his ALS and during recent hospitalization at [facility] they were told nothing else can be offered to patient at this time and patient was discharge home with home hospice and PO morphine. First hospice visit was on , 04/01 however, patient became unresponsive 04/02 and they brought in to the hospital. - Goal of care and code status were also addressed at that time. Family wants to wait for a couple days to see how patient respond to current treatment before making a decision. All questions and concerns were addressed at this time. Patient family acknowledged understanding and agreement with care plan. -Patient remains a FULL CODE status. -5/30: Discussion at bedside with interpreting service with Dr. Valdivia and family state they would discuss next steps amongst themselves and let healthcare team know of decisions -04/06: extensive discussion with family ( and son) with Dr. Grayson regarding goals of care -04/08: Extensive discussion with with the use of leasing consultant line regarding goals of care; no decision made. Possible consult to surgery for trach/PEG early next week. -04/09: Discussion with and her sister with Dr. Grayson and then with Dr. Pineda-> Consulted surgery for trach/peg -04/30 Insurance Denied LTAC, plan for possible SNF placement now. Case management to arrange -Family declined SNF -Awaiting discharge home with ventilator setup for home care due to need for ventilation secondary to trachestomy -DC will be prolonged for 1 week d/t need to remove wound mesh placed by surgery on 05/17 -DC postponed till completion of abx as it was not approved by insurance, DC planned for 06/03 Disposition: 01 HOME / SELF CARE / HOMELESS Final Discharge Diagnosis (Prints w/discharge instructions): h/o ALS, Suspect ischemic coronary artery disease, ST, h/o cardiomyopathy, Acute hypoxic respiratory failure, Moderate protein calorie malnutrition, Metabolic Alkalosis, Sepsis, HAP (Pseudomonas and Enterobacter tracheal aspirate), blood culture with bacillus species, Stage 4 sacra ulcer, Pseudomonas and VRE in wound culture, Anemia Time spent for discharge: 60 Core Measure Documentation - Palliative Care Palliative Care/ Comfort Measures: Not Applicable - Core Measures Any of the following diagnoses?: none Exam - Physical Exam Narrative exam: General appearance: Present: no acute distress, cachectic, other (trach/vent) - EENT Eyes: Present: PERRL, EOM intact ENT: dentition normal - Respiratory Respiratory effort: normal Respiratory: bilateral: diminished - Cardiovascular Rhythm: regular Heart Sounds: Present: S1 & S2. Absent: systolic murmur, diastolic murmur - Extremities Extremities: no ischemia, pulses intact, pulses symmetrical, normal temperature, normal color Peripheral Pulses: within normal limits - Abdominal General gastrointestinal: soft, non-tender, non-distended, normal bowel sounds - Integumentary Integumentary: Present: warm, dry - Psychiatric Psychiatric: cooperative - Neurologic Neurologic: other (moves BUE, intact cough/gag, PERRL) - Allied Health Allied health notes reviewed: nursing, RT, social work - Constitutional Vitals: Temp Pulse Resp BP Pulse Ox 98.9 F 79 14 92/61 98 06/02/22 12:00 06/02/22 12:25 06/02/22 12:00 06/02/22 12:25 06/02/22 12:25 Plan Activity: advance as tolerated Diet: per dietitian instruction Wound: per wound nurse instructions Special Instructions: record daily BP diary Care Plan Goals: Follow up with primary care provider within 7 to 10 days Follow up with: LÓPEZ PHILLIPS MD [Primary Care Provider] - 7 Days CARLOS VALDIVIA MD [Staff Physician] - 7 Days Prescriptions: Docusate Sodium [Colace ORAL LIQ] 100 mg FEEDTUBE BID 90 Days oral.liqd fentaNYL 12 MCG/HR Patch 72hr [DURAGESIC 12 MCG/HR Patch 72hr] 1 applic TD Q72H 30 Days #10 patch Metoprolol [Lopressor TAB] 12.5 mg FEEDTUBE Q6HR 90 Days tablet Acetylcysteine 20% (Rx Only) [Mucomyst (Rx Entry Only)] 200 mg INHALATION Q8HR #90 Famotidine [Pepcid] 20 mg FEEDTUBE BID 90 Days tablet ALBUTEROL NEB's [Proventil 0.083% NEBS] 2.5 mg IH TID PRN #90 neb PRN Reason: Wheezing Sennosides Oral Liqd [Senokot] 17.6 mg FEEDTUBE Q12HR 90 Days oral.liqd QUEtiapine [SEROquel] 50 mg FEEDTUBE BID #90 tablet
--- NOTE | 2022-06-02 14:00 | Post Operative Note ---
Pre-op diagnosis: Sacral ulcer with theragenesis and wound vac Post-op diagnosis: same Findings: wound is clean. Slicone mesh removed without incidence. area with exposed sacrum decreased 75% 2cm by 2cm area remains. Wound size is 0oeu4gul1.8cm. 48 cm2. Procedure: Old wound vac removed at bedside in the icu. Foam removed and disguarded. Wound cleansed with a wetting antibacterial agent.Silicone mesh removed with scissors. New gauze trimmed to fit wound. Collagen gauze cut to size of residual exposed sacrum. Black wound vac foam trimmed to size. Adhesive replaced. Wound vac attached. Anesthesia: none Surgeon: LOLI WALLACE Estimated blood loss: none Pathology: none Condition: stable Disposition: ICU
[2022-06-02] MEDS: fentaNYL 100 MCG/2 ML INJ IV PRN (14:38)
--- NOTE | 2022-06-02 16:58 | Progress Note ---
Assessment and Plan Cultures: 04/02/2022 urine culture: No growth 04/02/2022 sputum culture: Pseudomonas, Enterobacter 04/02/2022 blood culture: Bacillus in 1 set 04/05/2022 blood culture: No growth 04/15/2022 right middle lobe bronchial washings: Pseudomonas aeruginosa 05/15/2022 blood culture: No growth 05/17/2022 blood culture: no growth 05/17/2022 sputum culture: Pseudomonas aeruginosa x 2 types 05/19/2022 sacral wound culture: 2x E coli, MDR, CRE 05/19/2022 sacral wound: E coli, Pseudomonas A/P: 57-year-old man with progressive ALS, recently hospitalized at [facility] and was discharged on hospice, readmitted here with: #Sepsis, new fevers and leukocytosis: Etiology pneumonia v/s sacral decubitus ulcer with eschar. S/P debridement on 05/19/2022. #Hospital-acquired pneumonia: previously completed abx for Pseudomonas, Enterobacter. #Acute v/s now chronic respiratory failure: on the vent. S/P trach, PEG #ALS: Was on home hospice. #Bacillus bacteremia: likely contaminant. Recs: -Discussed with pharmacy to start Avycaz given CRE in cultures along with fevers. -Would recommend 9 days Avycaz. Discussed with Dr. Grayson today, okay to complete 9 days and discharge after dose on . Sameer Ojeda MD [facility] [place] O: [phone] F: [phone] Subjective Date of service: 06/02/22 Principal diagnosis: Ac and ch hypercapnic and hypoxemic Resp Failure; ALS; HCAP; Sepsis; NSTEMI Interval history: Afebrile, no acute change. Silicone mesh removed today from wound. Objective - Exam Narrative Exam: Physical Exam: Constitutional: awake, on the vent, trach + Head, Ears, Nose: Normocephalic, atraumatic. External ears, nose normal Eyes: Conjunctivae/corneas clear. No icterus. No ptosis. Neck: trach + Cardiovascular: S1, S2 + Respiratory: AE fair bilaterally and equal GI: Soft, bowel sounds +, PEG + Musculoskeletal: No pedal edema, no cyanosis. Skin: sacral wound with dressing, not directly examined Hem/Lymphatic: No palpable cervical or supraclavicular nodes. No lymphangitis Psych: no agitation Neurological: awake, on the vent, exam limited - Constitutional Vitals: Vital Signs Temp Pulse Resp BP Pulse Ox 99.7 F H 110 H 13 101/63 98 06/02/22 16:00 06/02/22 16:00 06/02/22 16:00 06/02/22 16:00 06/02/22 16:00 Temperature -Last 24 Hours Temperature 99.7 F Temperature 98.9 F Temperature 99.8 F Temperature 98.6 F Temperature 98.6 F Temperature 98.4 F - Labs CBC & Chem 7: 06/01/22 04:14 05/31/22 04:55 Labs: Abnormal lab results 06/01/22 06/02/22 Range/Units 21:11 06:13 POC Glucose 114 H 118 H (70-105) mg/dL
--- NOTE | 2022-06-02 17:09 | Progress Note ---
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 Right lung hemiopacification- Atelectasis s/p Bronchoscopy Oropharyngeal dysphagia s/p PEG Protein calorie malnutrition Acute Bronchopneumonia HCAP Hypotension NSTEMI H/o Amyotrophic Lateral Sclerosis Nonverbal at Baseline s/p wound vac change, removal of mesh today Home vent setting- Tidal volume 500, PEEP 10 and liter flow of 10 Perez is indicated to help facilitate wound healing- Unstageable sacral decub, on wound vac Discharge in am -Trach care, airway clearance, -continue with bronchodilators and chest PT -Continue with mucolytics and chest PT -Titrate supplemental oxygen to keep SpO2 89-92% -VAP bundle addressed, aspiration precautions HOB >40 -antibiotics, ID following -Trend temperature curve and WCC -keep K >3.5; Mg at 2 and Phos >2.5 to optimize respiratory muscle function -Monitoring renal function, hemodynamics and electrolyte profile -Accuchecks with glycemic control. target blood glucose 140-180 mg/dL. Avoid hypoglycemia -Continue enteric nutritional support, bowel regimen -VTE prophylaxis- Heparin -Avoid nephrotoxins and renally dose all medications -Stress ulcer prophylaxis- Famotidine -Mobility, frequent turning, off loading per facility protocol to prevent pressure ulcers -Maintain sleep wake cycle, avoid benzodiazepines. -Limit delirium CONDITION:CRITICAL PROGNOSIS: GUARDED CODE STATUS; FULL CODE The high probability of a clinically significant, sudden or life threatening deterioration of the respiratory, cardiovascular, neurology system required my full and direct attention, intervention and personal management. The aggregate critical care time was [33] minutes. 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 Vitals, labs, medications, chart and imaging reviewed. Discussed with respiratory and nursing care staff. s/p trach and PEG. 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 s/p silicone removal and wound vac placement today Remains on home ventilator Objective Vital Signs - 12hr 06/02/22 06/02/22 06/02/22 06:00 07:00 07:42 Temperature 99.8 F H Pulse Rate 89 99 H Pulse Rate [ Bilateral Throughout] Pulse Rate [ From Monitor] Respiratory 17 14 Rate Respiratory Rate [Bilateral Throughout] Blood Pressure 94/62 94/62 O2 Sat by Pulse 100 100 Oximetry O2 Sat by Pulse Oximetry [ Assessment] 06/02/22 06/02/22 06/02/22 07:45 08:00 09:00 Temperature Pulse Rate 106 H 97 H 105 H Pulse Rate [ 108 H Bilateral Throughout] Pulse Rate [ 101 H From Monitor] Respiratory 15 14 Rate Respiratory 20 Rate [Bilateral Throughout] Blood Pressure 101/64 101/64 106/72 O2 Sat by Pulse 97 100 100 Oximetry O2 Sat by Pulse 98 Oximetry [ Assessment] 06/02/22 06/02/22 06/02/22 09:37 10:00 11:00 Temperature Pulse Rate 101 H 102 H 95 H Pulse Rate [ Bilateral Throughout] Pulse Rate [ From Monitor] Respiratory 17 21 Rate Respiratory Rate [Bilateral Throughout] Blood Pressure 106/72 103/60 92/69 O2 Sat by Pulse 99 97 Oximetry O2 Sat by Pulse Oximetry [ Assessment] 06/02/22 06/02/22 06/02/22 12:00 12:25 13:00 Temperature 98.9 F Pulse Rate 80 79 82 Pulse Rate [ Bilateral Throughout] Pulse Rate [ 79 From Monitor] Respiratory 14 14 Rate Respiratory Rate [Bilateral Throughout] Blood Pressure 92/61 92/61 99/62 O2 Sat by Pulse 100 98 98 Oximetry O2 Sat by Pulse Oximetry [ Assessment] 06/02/22 06/02/22 06/02/22 13:10 14:00 15:00 Temperature Pulse Rate 111 H 109 H Pulse Rate [ Bilateral Throughout] Pulse Rate [ From Monitor] Respiratory 14 15 Rate Respiratory Rate [Bilateral Throughout] Blood Pressure 99/62 127/82 O2 Sat by Pulse 94 91 Oximetry O2 Sat by Pulse 97 Oximetry [ Assessment] 06/02/22 06/02/22 16:00 17:00 Temperature 99.7 F H Pulse Rate 110 H 104 H Pulse Rate [ Bilateral Throughout] Pulse Rate [ 110 H From Monitor] Respiratory 18 14 Rate Respiratory Rate [Bilateral Throughout] Blood Pressure 95/63 96/58 O2 Sat by Pulse 93 99 Oximetry O2 Sat by Pulse Oximetry [ Assessment] Constitutional: no acute distress, alert, other (resting in bed with normal respiratory effort at rest) Eyes: non-icteric ENT: oropharynx moist, other (+ midline tracheostomy to home vent) Neck: supple, no lymphadenopathy, no JVD Effort: mildly labored Ascultation: Bilateral: diminished breath sounds (bases), rhonchi Percussion: Bilateral: not dull Cardiovascular: regular rate and rhythm, other (S1,S2) Gastrointestinal: normoactive bowel sounds, soft, non-tender, non-distended Integumentary: normal, decubitus ulcer (see wound care pictures- wound vac) Extremities: no cyanosis, no edema, pink and warm, pulses normal Neurologic: pupils equal and round, other (functional quadriplegia) Psychiatric: mood appropriate, affect normal CBC and BMP: 06/01/22 04:14 05/31/22 04:55 ABG, PT/INR, D-dimer: ABG ABG pH 7.385 pH Units (7.350-7.450) 05/19/22 06:10 ABG pCO2 51.9 mm Hg 05/19/22 06:10 ABG pO2 70.5 mm Hg (80.0-90.0) L 05/19/22 06:10 ABG O2 Saturation 97.6 % (95.0-99.0) 05/19/22 06:10 PT/INR, D-dimer PT 13.6 Sec. (12.2-14.9) 04/13/22 04:30 INR 0.94 (0.87-1.13) 04/13/22 04:30 Abnormal lab findings: Abnormal Labs 04/02/22 04/02/22 04/02/22 19:39 19:39 19:39 WBC 14.3 H RBC Hgb Hct MCV 96 H MCH MCHC RDW Plt Count 104 L Lymph % (Auto) Howard % (Auto) Lymph # (Auto) Howard # (Auto) Seg Neutrophils % Seg Neuts % (Manual) 94.0 H Lymphocytes % (Manual) 1.0 L Seg Neutrophils # Seg Neutrophils # Man 13.4 H Lymphocytes # (Manual) 0.1 L PT 15.9 H INR 1.14 H ABG pH ABG pO2 ABG HCO3 ABG O2 Saturation ABG Base Excess ABG Hemoglobin Oxyhemoglobin Sodium 151 H Potassium Chloride Carbon Dioxide BUN Creatinine 0.5 L Glucose POC Glucose Calcium 8.2 L Phosphorus Magnesium 1.60 L Total Creatine Kinase CK-MB (CK-2) Rel Index Troponin T 0.048 H C-Reactive Protein Total Protein 4.6 L Albumin 2.7 L LDL Cholesterol Direct 27 L Urine WBC (Auto) Crossmatch 04/02/22 04/03/22 04/03/22 19:42 05:14 06:30 WBC RBC Hgb Hct MCV MCH MCHC RDW Plt Count Lymph % (Auto) Howard % (Auto) Lymph # (Auto) Howard # (Auto) Seg Neutrophils % Seg Neuts % (Manual) Lymphocytes % (Manual) Seg Neutrophils # Seg Neutrophils # Man Lymphocytes # (Manual) PT INR ABG pH 7.471 H 7.496 H ABG pO2 47.8 L 91.0 H ABG HCO3 30.6 H ABG O2 Saturation 94.4 L ABG Base Excess 6.2 H ABG Hemoglobin 11.0 L 12.8 L Oxyhemoglobin 93.1 L Sodium 149 H Potassium 3.4 L Chloride Carbon Dioxide BUN Creatinine 0.4 L Glucose POC Glucose Calcium Phosphorus Magnesium Total Creatine Kinase CK-MB (CK-2) Rel Index Troponin T C-Reactive Protein Total Protein Albumin LDL Cholesterol Direct Urine WBC (Auto) Crossmatch 04/04/22 04/04/22 04/04/22 04:18 04:18 05:50 WBC 11.8 H RBC Hgb Hct MCV MCH MCHC RDW Plt Count 132 L Lymph % (Auto) Howard % (Auto) Lymph # (Auto) Howard # (Auto) Seg Neutrophils % Seg Neuts % (Manual) Lymphocytes % (Manual) Seg Neutrophils # Seg Neutrophils # Man Lymphocytes # (Manual) PT INR ABG pH 7.517 H ABG pO2 115.5 H ABG HCO3 29.9 H ABG O2 Saturation ABG Base Excess 6.7 H ABG Hemoglobin 12.3 L Oxyhemoglobin Sodium Potassium 3.5 L Chloride Carbon Dioxide 31 H BUN Creatinine 0.3 L Glucose 153 H POC Glucose Calcium Phosphorus 1.40 L Magnesium 1.50 L Total Creatine Kinase CK-MB (CK-2) Rel Index Troponin T C-Reactive Protein 31.60 H Total Protein Albumin LDL Cholesterol Direct Urine WBC (Auto) Crossmatch 04/05/22 04/05/22 04/05/22 02:50 05:25 11:28 WBC RBC Hgb Hct MCV MCH MCHC RDW Plt Count Lymph % (Auto) Howard % (Auto) Lymph # (Auto) Howard # (Auto) Seg Neutrophils % Seg Neuts % (Manual) Lymphocytes % (Manual) Seg Neutrophils # Seg Neutrophils # Man Lymphocytes # (Manual) PT INR ABG pH 7.455 H ABG pO2 50.7 L ABG HCO3 30.5 H ABG O2 Saturation 89.4 L ABG Base Excess 5.9 H ABG Hemoglobin 11.8 L Oxyhemoglobin 88.2 L Sodium Potassium Chloride Carbon Dioxide 32 H BUN Creatinine 0.2 L Glucose 110 H POC Glucose 124 H Calcium 7.9 L Phosphorus Magnesium Total Creatine Kinase CK-MB (CK-2) Rel Index Troponin T C-Reactive Protein Total Protein Albumin LDL Cholesterol Direct Urine WBC (Auto) Crossmatch 04/05/22 04/05/22 04/06/22 17:45 Unknown 04:00 WBC RBC 3.55 L Hgb 11.1 L 11.5 L Hct 33.2 L 35.1 L MCV MCH MCHC RDW Plt Count 113 L 114 L Lymph % (Auto) Howard % (Auto) Lymph # (Auto) Howard # (Auto) Seg Neutrophils % Seg Neuts % (Manual) Lymphocytes % (Manual) Seg Neutrophils # Seg Neutrophils # Man Lymphocytes # (Manual) PT INR ABG pH ABG pO2 ABG HCO3 ABG O2 Saturation ABG Base Excess ABG Hemoglobin Oxyhemoglobin Sodium Potassium Chloride Carbon Dioxide BUN Creatinine Glucose POC Glucose Calcium Phosphorus Magnesium Total Creatine Kinase CK-MB (CK-2) Rel Index Troponin T C-Reactive Protein Total Protein Albumin LDL Cholesterol Direct Urine WBC (Auto) 8.0 H Crossmatch 04/06/22 04/06/22 04/07/22 04:00 08:30 00:04 WBC RBC Hgb Hct MCV MCH MCHC RDW Plt Count Lymph % (Auto) Howard % (Auto) Lymph # (Auto) Howard # (Auto) Seg Neutrophils % Seg Neuts % (Manual) Lymphocytes % (Manual) Seg Neutrophils # Seg Neutrophils # Man Lymphocytes # (Manual) PT INR ABG pH ABG pO2 60.8 L ABG HCO3 30.5 H ABG O2 Saturation 93.3 L ABG Base Excess 4.9 H ABG Hemoglobin 12.4 L Oxyhemoglobin 92.1 L Sodium Potassium 3.0 L Chloride Carbon Dioxide BUN Creatinine < 0.2 L Glucose 130 H POC Glucose 117 H Calcium 8.1 L Phosphorus Magnesium Total Creatine Kinase CK-MB (CK-2) Rel Index Troponin T C-Reactive Protein Total Protein Albumin LDL Cholesterol Direct Urine WBC (Auto) Crossmatch 04/07/22 04/07/22 04/07/22 03:51 03:51 03:51 WBC 14.6 H RBC 3.57 L Hgb 11.1 L Hct 33.2 L MCV MCH MCHC RDW Plt Count 118 L Lymph % (Auto) 4.3 L Howard % (Auto) 8.8 H Lymph # (Auto) 0.6 L Howard # (Auto) 1.3 H Seg Neutrophils % 86.6 H Seg Neuts % (Manual) Lymphocytes % (Manual) Seg Neutrophils # 12.7 H Seg Neutrophils # Man Lymphocytes # (Manual) PT 15.2 H INR ABG pH ABG pO2 ABG HCO3 ABG O2 Saturation ABG Base Excess ABG Hemoglobin Oxyhemoglobin Sodium 133 L Potassium Chloride 96.0 L Carbon Dioxide 31 H BUN Creatinine 0.2 L Glucose 130 H POC Glucose Calcium 8.0 L Phosphorus Magnesium Total Creatine Kinase CK-MB (CK-2) Rel Index Troponin T C-Reactive Protein Total Protein Albumin LDL Cholesterol Direct Urine WBC (Auto) Crossmatch 04/07/22 04/07/22 04/08/22 04:25 09:10 04:49 WBC 16.1 H RBC 3.54 L Hgb 10.9 L Hct 33.3 L MCV MCH MCHC RDW Plt Count Lymph % (Auto) Howard % (Auto) Lymph # (Auto) Howard # (Auto) Seg Neutrophils % Seg Neuts % (Manual) Lymphocytes % (Manual) Seg Neutrophils # Seg Neutrophils # Man Lymphocytes # (Manual) PT INR ABG pH ABG pO2 71.0 L 63.4 L ABG HCO3 31.5 H 40.0 H ABG O2 Saturation 94.9 L ABG Base Excess 5.9 H 13.6 H ABG Hemoglobin 11.3 L 9.0 L Oxyhemoglobin 93.6 L Sodium Potassium Chloride Carbon Dioxide BUN Creatinine Glucose POC Glucose Calcium Phosphorus Magnesium Total Creatine Kinase CK-MB (CK-2) Rel Index Troponin T C-Reactive Protein Total Protein Albumin LDL Cholesterol Direct Urine WBC (Auto) Crossmatch 04/08/22 04/08/22 04/08/22 04:49 09:53 10:25 WBC RBC Hgb Hct MCV MCH MCHC RDW Plt Count Lymph % (Auto) Howard % (Auto) Lymph # (Auto) Howard # (Auto) Seg Neutrophils % Seg Neuts % (Manual) Lymphocytes % (Manual) Seg Neutrophils # Seg Neutrophils # Man Lymphocytes # (Manual) PT INR ABG pH ABG pO2 ABG HCO3 34.7 H ABG O2 Saturation ABG Base Excess 7.9 H ABG Hemoglobin 11.0 L Oxyhemoglobin Sodium 136 L Potassium Chloride 97.7 L Carbon Dioxide 33 H BUN Creatinine 0.2 L Glucose 155 H POC Glucose Calcium Phosphorus Magnesium Total Creatine Kinase CK-MB (CK-2) Rel Index Troponin T 0.030 H C-Reactive Protein Total Protein Albumin LDL Cholesterol Direct Urine WBC (Auto) Crossmatch 04/08/22 04/08/22 04/08/22 11:19 17:47 18:06 WBC RBC Hgb Hct MCV MCH MCHC RDW Plt Count Lymph % (Auto) Howard % (Auto) Lymph # (Auto) Howard # (Auto) Seg Neutrophils % Seg Neuts % (Manual) Lymphocytes % (Manual) Seg Neutrophils # Seg Neutrophils # Man Lymphocytes # (Manual) PT INR ABG pH ABG pO2 ABG HCO3 ABG O2 Saturation ABG Base Excess ABG Hemoglobin Oxyhemoglobin Sodium Potassium Chloride Carbon Dioxide BUN Creatinine Glucose POC Glucose 121 H Calcium Phosphorus Magnesium Total Creatine Kinase 31 L 46 L CK-MB (CK-2) Rel Index 6.4 H 5.6 H Troponin T 0.030 H 0.031 H C-Reactive Protein Total Protein Albumin LDL Cholesterol Direct Urine WBC (Auto) Crossmatch 04/09/22 04/09/22 04/09/22 04:35 04:35 11:24 WBC 11.5 H RBC 3.16 L Hgb 9.9 L Hct 29.4 L MCV MCH MCHC RDW Plt Count 131 L Lymph % (Auto) Howard % (Auto) Lymph # (Auto) Howard # (Auto) Seg Neutrophils % Seg Neuts % (Manual) Lymphocytes % (Manual) Seg Neutrophils # Seg Neutrophils # Man Lymphocytes # (Manual) PT INR ABG pH ABG pO2 ABG HCO3 ABG O2 Saturation ABG Base Excess ABG Hemoglobin Oxyhemoglobin Sodium Potassium Chloride 97.1 L Carbon Dioxide 35 H BUN Creatinine < 0.2 L Glucose 145 H POC Glucose 147 H Calcium Phosphorus Magnesium Total Creatine Kinase CK-MB (CK-2) Rel Index Troponin T C-Reactive Protein Total Protein Albumin LDL Cholesterol Direct Urine WBC (Auto) Crossmatch 04/09/22 04/09/22 04/09/22 13:00 17:32 23:48 WBC RBC Hgb Hct MCV MCH MCHC RDW Plt Count Lymph % (Auto) Howard % (Auto) Lymph # (Auto) Howard # (Auto) Seg Neutrophils % Seg Neuts % (Manual) Lymphocytes % (Manual) Seg Neutrophils # Seg Neutrophils # Man Lymphocytes # (Manual) PT INR ABG pH ABG pO2 66.6 L ABG HCO3 38.2 H ABG O2 Saturation 94.4 L ABG Base Excess 10.7 H ABG Hemoglobin 10.7 L Oxyhemoglobin 92.8 L Sodium Potassium Chloride Carbon Dioxide BUN Creatinine Glucose POC Glucose 143 H 114 H Calcium Phosphorus Magnesium Total Creatine Kinase CK-MB (CK-2) Rel Index Troponin T C-Reactive Protein Total Protein Albumin LDL Cholesterol Direct Urine WBC (Auto) Crossmatch 04/10/22 04/10/22 04/10/22 04:48 04:48 05:34 WBC RBC 2.91 L Hgb 9.1 L Hct 27.7 L MCV 95 H MCH MCHC RDW Plt Count Lymph % (Auto) Howard % (Auto) Lymph # (Auto) Howard # (Auto) Seg Neutrophils % Seg Neuts % (Manual) Lymphocytes % (Manual) Seg Neutrophils # Seg Neutrophils # Man Lymphocytes # (Manual) PT INR ABG pH ABG pO2 ABG HCO3 ABG O2 Saturation ABG Base Excess ABG Hemoglobin Oxyhemoglobin Sodium Potassium Chloride 95.7 L Carbon Dioxide 38 H BUN Creatinine < 0.2 L Glucose 118 H POC Glucose 127 H Calcium Phosphorus Magnesium Total Creatine Kinase CK-MB (CK-2) Rel Index Troponin T C-Reactive Protein Total Protein Albumin LDL Cholesterol Direct Urine WBC (Auto) Crossmatch 04/10/22 04/11/22 04/11/22 23:10 04:15 04:15 WBC 17.2 H RBC 2.98 L Hgb 9.2 L Hct 27.9 L MCV MCH MCHC RDW Plt Count Lymph % (Auto) Howard % (Auto) Lymph # (Auto) Howard # (Auto) Seg Neutrophils % Seg Neuts % (Manual) Lymphocytes % (Manual) Seg Neutrophils # Seg Neutrophils # Man Lymphocytes # (Manual) PT INR ABG pH ABG pO2 ABG HCO3 ABG O2 Saturation ABG Base Excess ABG Hemoglobin Oxyhemoglobin Sodium Potassium Chloride 96.1 L Carbon Dioxide 35 H BUN Creatinine < 0.2 L Glucose 138 H POC Glucose 106 H Calcium 8.3 L Phosphorus Magnesium Total Creatine Kinase CK-MB (CK-2) Rel Index Troponin T C-Reactive Protein Total Protein Albumin LDL Cholesterol Direct Urine WBC (Auto) Crossmatch 04/11/22 04/11/22 04/11/22 05:31 13:18 16:20 WBC RBC Hgb Hct MCV MCH MCHC RDW Plt Count Lymph % (Auto) Howard % (Auto) Lymph # (Auto) Howard # (Auto) Seg Neutrophils % Seg Neuts % (Manual) Lymphocytes % (Manual) Seg Neutrophils # Seg Neutrophils # Man Lymphocytes # (Manual) PT INR ABG pH ABG pO2 57.8 L ABG HCO3 40.5 H ABG O2 Saturation 90.6 L ABG Base Excess 12.6 H ABG Hemoglobin 10.5 L Oxyhemoglobin 89.0 L Sodium Potassium Chloride Carbon Dioxide BUN Creatinine Glucose POC Glucose 129 H 132 H Calcium Phosphorus Magnesium Total Creatine Kinase CK-MB (CK-2) Rel Index Troponin T C-Reactive Protein Total Protein Albumin LDL Cholesterol Direct Urine WBC (Auto) Crossmatch 04/11/22 04/11/22 04/12/22 17:29 23:17 04:00 WBC 17.4 H RBC 2.96 L Hgb 9.0 L Hct 28.0 L MCV 95 H MCH MCHC RDW Plt Count Lymph % (Auto) Howard % (Auto) Lymph # (Auto) Howard # (Auto) Seg Neutrophils % Seg Neuts % (Manual) Lymphocytes % (Manual) Seg Neutrophils # Seg Neutrophils # Man Lymphocytes # (Manual) PT INR ABG pH ABG pO2 ABG HCO3 ABG O2 Saturation ABG Base Excess ABG Hemoglobin Oxyhemoglobin Sodium Potassium Chloride Carbon Dioxide BUN Creatinine Glucose POC Glucose 125 H 151 H Calcium Phosphorus Magnesium Total Creatine Kinase CK-MB (CK-2) Rel Index Troponin T C-Reactive Protein Total Protein Albumin LDL Cholesterol Direct Urine WBC (Auto) Crossmatch 04/12/22 04/12/22 04/12/22 04:00 17:03 23:39 WBC RBC Hgb Hct MCV MCH MCHC RDW Plt Count Lymph % (Auto) Howard % (Auto) Lymph # (Auto) Howard # (Auto) Seg Neutrophils % Seg Neuts % (Manual) Lymphocytes % (Manual) Seg Neutrophils # Seg Neutrophils # Man Lymphocytes # (Manual) PT INR ABG pH ABG pO2 ABG HCO3 ABG O2 Saturation ABG Base Excess ABG Hemoglobin Oxyhemoglobin Sodium Potassium Chloride 97.4 L Carbon Dioxide 37 H BUN Creatinine < 0.2 L Glucose 127 H POC Glucose 106 H 107 H Calcium Phosphorus Magnesium Total Creatine Kinase CK-MB (CK-2) Rel Index Troponin T C-Reactive Protein Total Protein Albumin LDL Cholesterol Direct Urine WBC (Auto) Crossmatch 04/13/22 04/13/22 04/13/22 04:30 04:30 17:39 WBC 14.1 H RBC 2.66 L Hgb 8.4 L Hct 25.5 L MCV 96 H MCH MCHC RDW Plt Count Lymph % (Auto) Howard % (Auto) Lymph # (Auto) Howard # (Auto) Seg Neutrophils % Seg Neuts % (Manual) Lymphocytes % (Manual) Seg Neutrophils # Seg Neutrophils # Man Lymphocytes # (Manual) PT INR ABG pH ABG pO2 ABG HCO3 ABG O2 Saturation ABG Base Excess ABG Hemoglobin Oxyhemoglobin Sodium Potassium Chloride 93.9 L Carbon Dioxide 39 H BUN Creatinine < 0.2 L Glucose POC Glucose 134 H Calcium Phosphorus 1.90 L Magnesium Total Creatine Kinase CK-MB (CK-2) Rel Index Troponin T C-Reactive Protein Total Protein Albumin LDL Cholesterol Direct Urine WBC (Auto) Crossmatch 04/14/22 04/14/22 04/14/22 05:03 05:03 09:10 WBC 15.6 H RBC 3.02 L Hgb 9.3 L Hct 28.8 L MCV 95 H MCH MCHC RDW Plt Count Lymph % (Auto) Howard % (Auto) Lymph # (Auto) Howard # (Auto) Seg Neutrophils % Seg Neuts % (Manual) Lymphocytes % (Manual) Seg Neutrophils # Seg Neutrophils # Man Lymphocytes # (Manual) PT INR ABG pH ABG pO2 66.9 L ABG HCO3 44.5 H ABG O2 Saturation ABG Base Excess 17.2 H ABG Hemoglobin 8.1 L Oxyhemoglobin 94.8 L Sodium Potassium Chloride 93.8 L Carbon Dioxide 42 H* BUN Creatinine < 0.2 L Glucose 117 H POC Glucose Calcium Phosphorus Magnesium Total Creatine Kinase CK-MB (CK-2) Rel Index Troponin T C-Reactive Protein Total Protein Albumin LDL Cholesterol Direct Urine WBC (Auto) Crossmatch 04/15/22 04/15/22 04/16/22 04:44 04:44 04:16 WBC 13.0 H 12.6 H RBC 3.19 L 3.09 L Hgb 9.6 L 9.5 L Hct 30.2 L 29.1 L MCV 95 H MCH MCHC RDW Plt Count 456 H Lymph % (Auto) Howard % (Auto) Lymph # (Auto) Howard # (Auto) Seg Neutrophils % Seg Neuts % (Manual) Lymphocytes % (Manual) Seg Neutrophils # Seg Neutrophils # Man Lymphocytes # (Manual) PT INR ABG pH ABG pO2 ABG HCO3 ABG O2 Saturation ABG Base Excess ABG Hemoglobin Oxyhemoglobin Sodium Potassium Chloride 95.5 L Carbon Dioxide 37 H BUN Creatinine < 0.2 L Glucose POC Glucose Calcium Phosphorus Magnesium Total Creatine Kinase CK-MB (CK-2) Rel Index Troponin T C-Reactive Protein Total Protein Albumin LDL Cholesterol Direct Urine WBC (Auto) Crossmatch 04/16/22 04/16/22 04/16/22 04:16 05:00 14:00 WBC RBC Hgb Hct MCV MCH MCHC RDW Plt Count Lymph % (Auto) Howard % (Auto) Lymph # (Auto) Howard # (Auto) Seg Neutrophils % Seg Neuts % (Manual) Lymphocytes % (Manual) Seg Neutrophils # Seg Neutrophils # Man Lymphocytes # (Manual) PT INR ABG pH 7.324 L ABG pO2 55.6 L ABG HCO3 45.3 H ABG O2 Saturation 87.1 L ABG Base Excess 16.6 H ABG Hemoglobin 8.6 L Oxyhemoglobin 85.7 L Sodium Potassium Chloride 97.6 L Carbon Dioxide 36 H BUN Creatinine < 0.2 L Glucose 109 H POC Glucose 120 H Calcium Phosphorus Magnesium Total Creatine Kinase CK-MB (CK-2) Rel Index Troponin T C-Reactive Protein Total Protein Albumin LDL Cholesterol Direct Urine WBC (Auto) Crossmatch 04/17/22 04/17/22 04/17/22 04:36 04:36 04:57 WBC 14.4 H RBC 3.08 L Hgb 9.4 L Hct 29.0 L MCV MCH MCHC RDW Plt Count Lymph % (Auto) Howard % (Auto) Lymph # (Auto) Howard # (Auto) Seg Neutrophils % Seg Neuts % (Manual) Lymphocytes % (Manual) Seg Neutrophils # Seg Neutrophils # Man Lymphocytes # (Manual) PT INR ABG pH ABG pO2 ABG HCO3 ABG O2 Saturation ABG Base Excess ABG Hemoglobin Oxyhemoglobin Sodium Potassium Chloride 95.9 L Carbon Dioxide 39 H BUN Creatinine < 0.2 L Glucose 140 H POC Glucose 137 H Calcium 8.3 L Phosphorus Magnesium Total Creatine Kinase CK-MB (CK-2) Rel Index Troponin T C-Reactive Protein Total Protein Albumin LDL Cholesterol Direct Urine WBC (Auto) Crossmatch 04/17/22 04/17/22 04/18/22 09:15 18:01 04:20 WBC 11.2 H RBC 3.00 L Hgb 9.3 L Hct 28.6 L MCV 95 H MCH MCHC RDW Plt Count Lymph % (Auto) Howard % (Auto) Lymph # (Auto) Howard # (Auto) Seg Neutrophils % Seg Neuts % (Manual) Lymphocytes % (Manual) Seg Neutrophils # Seg Neutrophils # Man Lymphocytes # (Manual) PT INR ABG pH 7.345 L ABG pO2 ABG HCO3 48.2 H ABG O2 Saturation ABG Base Excess 19.2 H ABG Hemoglobin 9.7 L Oxyhemoglobin Sodium Potassium Chloride Carbon Dioxide BUN Creatinine Glucose POC Glucose 129 H Calcium Phosphorus Magnesium Total Creatine Kinase CK-MB (CK-2) Rel Index Troponin T C-Reactive Protein Total Protein Albumin LDL Cholesterol Direct Urine WBC (Auto) Crossmatch 04/18/22 04/18/22 04/18/22 04:20 17:35 23:50 WBC RBC Hgb Hct MCV MCH MCHC RDW Plt Count Lymph % (Auto) Howard % (Auto) Lymph # (Auto) Howard # (Auto) Seg Neutrophils % Seg Neuts % (Manual) Lymphocytes % (Manual) Seg Neutrophils # Seg Neutrophils # Man Lymphocytes # (Manual) PT INR ABG pH ABG pO2 ABG HCO3 ABG O2 Saturation ABG Base Excess ABG Hemoglobin Oxyhemoglobin Sodium Potassium Chloride 96.8 L Carbon Dioxide 43 H* BUN 22 H Creatinine < 0.2 L Glucose 137 H POC Glucose 128 H 123 H Calcium 8.2 L Phosphorus Magnesium Total Creatine Kinase CK-MB (CK-2) Rel Index Troponin T C-Reactive Protein Total Protein Albumin LDL Cholesterol Direct Urine WBC (Auto) Crossmatch 04/19/22 04/19/22 04/19/22 04:08 04:08 08:50 WBC 16.8 H RBC 3.18 L Hgb 9.8 L Hct 30.1 L MCV 95 H MCH MCHC RDW Plt Count Lymph % (Auto) Howard % (Auto) Lymph # (Auto) Howard # (Auto) Seg Neutrophils % Seg Neuts % (Manual) Lymphocytes % (Manual) Seg Neutrophils # Seg Neutrophils # Man Lymphocytes # (Manual) PT INR ABG pH ABG pO2 56.0 L ABG HCO3 47.1 H ABG O2 Saturation 93.3 L ABG Base Excess 20.1 H ABG Hemoglobin 8.0 L Oxyhemoglobin 91.8 L Sodium Potassium Chloride 96.2 L Carbon Dioxide 40 H BUN 24 H Creatinine < 0.2 L Glucose 125 H POC Glucose Calcium 8.3 L Phosphorus Magnesium Total Creatine Kinase CK-MB (CK-2) Rel Index Troponin T C-Reactive Protein Total Protein Albumin LDL Cholesterol Direct Urine WBC (Auto) Crossmatch 04/19/22 04/20/22 04/20/22 12:02 00:40 04:49 WBC 14.7 H RBC 3.36 L Hgb 10.3 L Hct 32.0 L MCV 95 H MCH MCHC RDW Plt Count Lymph % (Auto) Howard % (Auto) Lymph # (Auto) Howard # (Auto) Seg Neutrophils % Seg Neuts % (Manual) Lymphocytes % (Manual) Seg Neutrophils # Seg Neutrophils # Man Lymphocytes # (Manual) PT INR ABG pH ABG pO2 ABG HCO3 ABG O2 Saturation ABG Base Excess ABG Hemoglobin Oxyhemoglobin Sodium Potassium Chloride Carbon Dioxide BUN Creatinine Glucose POC Glucose 124 H 140 H Calcium Phosphorus Magnesium Total Creatine Kinase CK-MB (CK-2) Rel Index Troponin T C-Reactive Protein Total Protein Albumin LDL Cholesterol Direct Urine WBC (Auto) Crossmatch 04/20/22 04/20/22 04/21/22 05:36 11:40 04:05 WBC RBC Hgb Hct MCV MCH MCHC RDW Plt Count Lymph % (Auto) Howard % (Auto) Lymph # (Auto) Howard # (Auto) Seg Neutrophils % Seg Neuts % (Manual) Lymphocytes % (Manual) Seg Neutrophils # Seg Neutrophils # Man Lymphocytes # (Manual) PT INR ABG pH ABG pO2 ABG HCO3 ABG O2 Saturation ABG Base Excess ABG Hemoglobin Oxyhemoglobin Sodium Potassium Chloride 93.4 L Carbon Dioxide 40 H BUN 25 H Creatinine < 0.2 L Glucose 122 H POC Glucose 125 H 128 H Calcium Phosphorus Magnesium Total Creatine Kinase CK-MB (CK-2) Rel Index Troponin T C-Reactive Protein Total Protein Albumin LDL Cholesterol Direct Urine WBC (Auto) Crossmatch 04/21/22 04/22/22 04/22/22 10:31 05:03 05:03 WBC 12.6 H 12.7 H RBC 2.83 L 2.96 L Hgb 8.6 L 9.0 L Hct 26.9 L 28.0 L MCV 95 H 95 H MCH MCHC RDW Plt Count Lymph % (Auto) Howard % (Auto) Lymph # (Auto) Howard # (Auto) Seg Neutrophils % Seg Neuts % (Manual) Lymphocytes % (Manual) Seg Neutrophils # Seg Neutrophils # Man Lymphocytes # (Manual) PT INR ABG pH ABG pO2 ABG HCO3 ABG O2 Saturation ABG Base Excess ABG Hemoglobin Oxyhemoglobin Sodium Potassium Chloride 93.9 L Carbon Dioxide 43 H* BUN 23 H Creatinine < 0.2 L Glucose 137 H POC Glucose Calcium Phosphorus Magnesium Total Creatine Kinase CK-MB (CK-2) Rel Index Troponin T C-Reactive Protein Total Protein Albumin LDL Cholesterol Direct Urine WBC (Auto) Crossmatch 04/22/22 04/23/22 04/24/22 08:34 09:40 04:29 WBC 14.4 H RBC 2.74 L Hgb 8.4 L Hct 25.7 L MCV MCH MCHC RDW Plt Count Lymph % (Auto) Howard % (Auto) Lymph # (Auto) Howard # (Auto) Seg Neutrophils % Seg Neuts % (Manual) Lymphocytes % (Manual) Seg Neutrophils # Seg Neutrophils # Man Lymphocytes # (Manual) PT INR ABG pH ABG pO2 54.1 L 56.8 L ABG HCO3 48.5 H 49.0 H ABG O2 Saturation 92.1 L 90.9 L ABG Base Excess 20.9 H 20.8 H ABG Hemoglobin 9.0 L 8.4 L Oxyhemoglobin 90.6 L 89.5 L Sodium Potassium Chloride Carbon Dioxide BUN Creatinine Glucose POC Glucose Calcium Phosphorus Magnesium Total Creatine Kinase CK-MB (CK-2) Rel Index Troponin T C-Reactive Protein Total Protein Albumin LDL Cholesterol Direct Urine WBC (Auto) Crossmatch 04/24/22 04/25/22 04/26/22 04:29 09:00 04:22 WBC RBC 2.88 L Hgb 8.9 L Hct 26.8 L MCV MCH MCHC RDW Plt Count Lymph % (Auto) Howard % (Auto) Lymph # (Auto) Howard # (Auto) Seg Neutrophils % Seg Neuts % (Manual) Lymphocytes % (Manual) Seg Neutrophils # Seg Neutrophils # Man Lymphocytes # (Manual) PT INR ABG pH 7.457 H ABG pO2 66.7 L ABG HCO3 42.6 H ABG O2 Saturation ABG Base Excess 15.3 H ABG Hemoglobin 8.8 L Oxyhemoglobin 94.1 L Sodium Potassium Chloride 90.7 L Carbon Dioxide 40 H BUN Creatinine < 0.2 L Glucose 133 H POC Glucose Calcium Phosphorus Magnesium Total Creatine Kinase CK-MB (CK-2) Rel Index Troponin T C-Reactive Protein Total Protein Albumin LDL Cholesterol Direct Urine WBC (Auto) Crossmatch 04/26/22 04/29/22 04/29/22 04:22 04:18 04:18 WBC 13.5 H RBC 2.96 L Hgb 8.9 L Hct 27.7 L MCV MCH MCHC RDW Plt Count Lymph % (Auto) Howard % (Auto) Lymph # (Auto) Howard # (Auto) Seg Neutrophils % Seg Neuts % (Manual) Lymphocytes % (Manual) Seg Neutrophils # Seg Neutrophils # Man Lymphocytes # (Manual) PT INR ABG pH ABG pO2 ABG HCO3 ABG O2 Saturation ABG Base Excess ABG Hemoglobin Oxyhemoglobin Sodium Potassium Chloride 93.2 L 95.2 L Carbon Dioxide 37 H 38 H BUN Creatinine < 0.2 L < 0.2 L Glucose 114 H 116 H POC Glucose Calcium Phosphorus Magnesium Total Creatine Kinase CK-MB (CK-2) Rel Index Troponin T C-Reactive Protein Total Protein Albumin LDL Cholesterol Direct Urine WBC (Auto) Crossmatch 05/02/22 05/03/22 05/03/22 04:29 04:02 04:02 WBC 12.9 H 12.3 H RBC 2.82 L 2.83 L Hgb 8.4 L 8.4 L Hct 26.2 L 26.0 L MCV MCH MCHC RDW Plt Count Lymph % (Auto) Howard % (Auto) Lymph # (Auto) Howard # (Auto) Seg Neutrophils % Seg Neuts % (Manual) Lymphocytes % (Manual) Seg Neutrophils # Seg Neutrophils # Man Lymphocytes # (Manual) PT INR ABG pH ABG pO2 ABG HCO3 ABG O2 Saturation ABG Base Excess ABG Hemoglobin Oxyhemoglobin Sodium 134 L Potassium Chloride 90.5 L Carbon Dioxide 38 H BUN 21 H Creatinine < 0.2 L Glucose 126 H POC Glucose Calcium Phosphorus Magnesium Total Creatine Kinase CK-MB (CK-2) Rel Index Troponin T C-Reactive Protein Total Protein Albumin LDL Cholesterol Direct Urine WBC (Auto) Crossmatch 05/03/22 05/03/22 05/04/22 12:02 17:42 09:36 WBC RBC Hgb Hct MCV MCH MCHC RDW Plt Count Lymph % (Auto) Howard % (Auto) Lymph # (Auto) Howard # (Auto) Seg Neutrophils % Seg Neuts % (Manual) Lymphocytes % (Manual) Seg Neutrophils # Seg Neutrophils # Man Lymphocytes # (Manual) PT INR ABG pH ABG pO2 55.4 L ABG HCO3 43.7 H ABG O2 Saturation 87.4 L ABG Base Excess 16.1 H ABG Hemoglobin 9.1 L Oxyhemoglobin 85.7 L Sodium Potassium Chloride Carbon Dioxide BUN Creatinine Glucose POC Glucose 139 H 131 H Calcium Phosphorus Magnesium Total Creatine Kinase CK-MB (CK-2) Rel Index Troponin T C-Reactive Protein Total Protein Albumin LDL Cholesterol Direct Urine WBC (Auto) Crossmatch 05/04/22 05/04/22 05/05/22 17:08 23:10 04:23 WBC 14.4 H RBC 2.75 L Hgb 8.2 L Hct 25.2 L MCV MCH MCHC RDW Plt Count Lymph % (Auto) Howard % (Auto) Lymph # (Auto) Howard # (Auto) Seg Neutrophils % Seg Neuts % (Manual) Lymphocytes % (Manual) Seg Neutrophils # Seg Neutrophils # Man Lymphocytes # (Manual) PT INR ABG pH ABG pO2 ABG HCO3 ABG O2 Saturation ABG Base Excess ABG Hemoglobin Oxyhemoglobin Sodium Potassium Chloride Carbon Dioxide BUN Creatinine Glucose POC Glucose 124 H 115 H Calcium Phosphorus Magnesium Total Creatine Kinase CK-MB (CK-2) Rel Index Troponin T C-Reactive Protein Total Protein Albumin LDL Cholesterol Direct Urine WBC (Auto) Crossmatch 05/05/22 05/05/22 05/06/22 04:23 21:39 05:13 WBC RBC Hgb Hct MCV MCH MCHC RDW Plt Count Lymph % (Auto) Howard % (Auto) Lymph # (Auto) Howard # (Auto) Seg Neutrophils % Seg Neuts % (Manual) Lymphocytes % (Manual) Seg Neutrophils # Seg Neutrophils # Man Lymphocytes # (Manual) PT INR ABG pH ABG pO2 ABG HCO3 ABG O2 Saturation ABG Base Excess ABG Hemoglobin Oxyhemoglobin Sodium Potassium Chloride 91.3 L Carbon Dioxide 38 H BUN 23 H Creatinine < 0.2 L Glucose 128 H POC Glucose 141 H 136 H Calcium Phosphorus Magnesium Total Creatine Kinase CK-MB (CK-2) Rel Index Troponin T C-Reactive Protein Total Protein Albumin LDL Cholesterol Direct Urine WBC (Auto) Crossmatch 05/07/22 05/07/22 05/08/22 05:29 22:15 05:48 WBC RBC Hgb Hct MCV MCH MCHC RDW Plt Count Lymph % (Auto) Howard % (Auto) Lymph # (Auto) Howard # (Auto) Seg Neutrophils % Seg Neuts % (Manual) Lymphocytes % (Manual) Seg Neutrophils # Seg Neutrophils # Man Lymphocytes # (Manual) PT INR ABG pH ABG pO2 ABG HCO3 ABG O2 Saturation ABG Base Excess ABG Hemoglobin Oxyhemoglobin Sodium Potassium Chloride Carbon Dioxide BUN Creatinine Glucose POC Glucose 125 H 142 H 122 H Calcium Phosphorus Magnesium Total Creatine Kinase CK-MB (CK-2) Rel Index Troponin T C-Reactive Protein Total Protein Albumin LDL Cholesterol Direct Urine WBC (Auto) Crossmatch 05/08/22 05/08/22 05/09/22 14:04 21:48 15:15 WBC RBC 2.61 L Hgb 7.7 L Hct 23.2 L MCV MCH MCHC RDW Plt Count Lymph % (Auto) 8.1 L Howard % (Auto) Lymph # (Auto) 0.9 L Howard # (Auto) Seg Neutrophils % 86.1 H Seg Neuts % (Manual) Lymphocytes % (Manual) Seg Neutrophils # 9.2 H Seg Neutrophils # Man Lymphocytes # (Manual) PT INR ABG pH ABG pO2 ABG HCO3 ABG O2 Saturation ABG Base Excess ABG Hemoglobin Oxyhemoglobin Sodium Potassium Chloride Carbon Dioxide BUN Creatinine Glucose POC Glucose 112 H 107 H Calcium Phosphorus Magnesium Total Creatine Kinase CK-MB (CK-2) Rel Index Troponin T C-Reactive Protein Total Protein Albumin LDL Cholesterol Direct Urine WBC (Auto) Crossmatch 05/09/22 05/09/22 05/09/22 15:15 15:39 21:15 WBC RBC Hgb Hct MCV MCH MCHC RDW Plt Count Lymph % (Auto) Howard % (Auto) Lymph # (Auto) Howard # (Auto) Seg Neutrophils % Seg Neuts % (Manual) Lymphocytes % (Manual) Seg Neutrophils # Seg Neutrophils # Man Lymphocytes # (Manual) PT INR ABG pH ABG pO2 ABG HCO3 ABG O2 Saturation ABG Base Excess ABG Hemoglobin Oxyhemoglobin Sodium Potassium Chloride 92.9 L Carbon Dioxide 40 H BUN Creatinine < 0.2 L Glucose 141 H POC Glucose 118 H 112 H Calcium Phosphorus Magnesium Total Creatine Kinase CK-MB (CK-2) Rel Index Troponin T C-Reactive Protein Total Protein Albumin LDL Cholesterol Direct Urine WBC (Auto) Crossmatch 05/10/22 05/12/22 05/13/22 15:14 00:25 04:02 WBC 13.3 H RBC 3.14 L Hgb 8.7 L Hct 28.0 L MCV MCH MCHC 31 L RDW Plt Count Lymph % (Auto) Howard % (Auto) Lymph # (Auto) Howard # (Auto) Seg Neutrophils % Seg Neuts % (Manual) Lymphocytes % (Manual) Seg Neutrophils # Seg Neutrophils # Man Lymphocytes # (Manual) PT INR ABG pH ABG pO2 ABG HCO3 ABG O2 Saturation ABG Base Excess ABG Hemoglobin Oxyhemoglobin Sodium Potassium Chloride Carbon Dioxide BUN Creatinine Glucose POC Glucose 113 H 158 H Calcium Phosphorus Magnesium Total Creatine Kinase CK-MB (CK-2) Rel Index Troponin T C-Reactive Protein Total Protein Albumin LDL Cholesterol Direct Urine WBC (Auto) Crossmatch 05/13/22 05/13/22 05/13/22 04:02 06:32 13:09 WBC RBC Hgb Hct MCV MCH MCHC RDW Plt Count Lymph % (Auto) Howard % (Auto) Lymph # (Auto) Howard # (Auto) Seg Neutrophils % Seg Neuts % (Manual) Lymphocytes % (Manual) Seg Neutrophils # Seg Neutrophils # Man Lymphocytes # (Manual) PT INR ABG pH ABG pO2 ABG HCO3 ABG O2 Saturation ABG Base Excess ABG Hemoglobin Oxyhemoglobin Sodium 135 L Potassium Chloride 91.1 L Carbon Dioxide 40 H BUN 23 H Creatinine < 0.2 L Glucose 139 H POC Glucose 129 H 117 H Calcium Phosphorus Magnesium Total Creatine Kinase CK-MB (CK-2) Rel Index Troponin T C-Reactive Protein Total Protein Albumin LDL Cholesterol Direct Urine WBC (Auto) Crossmatch 05/13/22 05/14/22 05/14/22 21:28 05:44 07:35 WBC RBC Hgb Hct MCV MCH MCHC RDW Plt Count Lymph % (Auto) Howard % (Auto) Lymph # (Auto) Howard # (Auto) Seg Neutrophils % Seg Neuts % (Manual) Lymphocytes % (Manual) Seg Neutrophils # Seg Neutrophils # Man Lymphocytes # (Manual) PT INR ABG pH ABG pO2 ABG HCO3 ABG O2 Saturation ABG Base Excess ABG Hemoglobin Oxyhemoglobin Sodium Potassium Chloride Carbon Dioxide BUN Creatinine Glucose POC Glucose 109 H 130 H 125 H Calcium Phosphorus Magnesium Total Creatine Kinase CK-MB (CK-2) Rel Index Troponin T C-Reactive Protein Total Protein Albumin LDL Cholesterol Direct Urine WBC (Auto) Crossmatch 05/14/22 05/14/22 05/15/22 16:26 23:44 10:44 WBC 13.9 H RBC 2.71 L Hgb 7.5 L Hct 23.5 L MCV MCH MCHC RDW 15.9 H Plt Count Lymph % (Auto) Howard % (Auto) Lymph # (Auto) Howard # (Auto) Seg Neutrophils % Seg Neuts % (Manual) Lymphocytes % (Manual) Seg Neutrophils # Seg Neutrophils # Man Lymphocytes # (Manual) PT INR ABG pH ABG pO2 ABG HCO3 ABG O2 Saturation ABG Base Excess ABG Hemoglobin Oxyhemoglobin Sodium Potassium Chloride Carbon Dioxide BUN Creatinine Glucose POC Glucose 112 H 189 H Calcium Phosphorus Magnesium Total Creatine Kinase CK-MB (CK-2) Rel Index Troponin T C-Reactive Protein Total Protein Albumin LDL Cholesterol Direct Urine WBC (Auto) Crossmatch 05/15/22 05/16/22 05/16/22 10:44 14:50 21:36 WBC RBC Hgb Hct MCV MCH MCHC RDW Plt Count Lymph % (Auto) Howard % (Auto) Lymph # (Auto) Howard # (Auto) Seg Neutrophils % Seg Neuts % (Manual) Lymphocytes % (Manual) Seg Neutrophils # Seg Neutrophils # Man Lymphocytes # (Manual) PT INR ABG pH ABG pO2 ABG HCO3 ABG O2 Saturation ABG Base Excess ABG Hemoglobin Oxyhemoglobin Sodium 135 L Potassium 3.3 L D Chloride 91.5 L Carbon Dioxide 33 H D BUN 21 H Creatinine < 0.2 L Glucose 118 H POC Glucose 133 H 123 H Calcium 7.9 L Phosphorus Magnesium Total Creatine Kinase CK-MB (CK-2) Rel Index Troponin T C-Reactive Protein Total Protein Albumin LDL Cholesterol Direct Urine WBC (Auto) Crossmatch 05/17/22 05/17/22 05/17/22 03:41 03:41 05:51 WBC 16.2 H RBC 2.53 L Hgb 7.0 L Hct 21.5 L MCV MCH MCHC RDW 16.2 H Plt Count Lymph % (Auto) Howard % (Auto) Lymph # (Auto) Howard # (Auto) Seg Neutrophils % Seg Neuts % (Manual) 96.0 H Lymphocytes % (Manual) 1.0 L Seg Neutrophils # Seg Neutrophils # Man 15.6 H Lymphocytes # (Manual) 0.2 L PT INR ABG pH ABG pO2 ABG HCO3 ABG O2 Saturation ABG Base Excess ABG Hemoglobin Oxyhemoglobin Sodium 132 L Potassium Chloride 95.0 L Carbon Dioxide BUN 22 H Creatinine < 0.2 L Glucose 122 H POC Glucose 123 H Calcium Phosphorus Magnesium Total Creatine Kinase CK-MB (CK-2) Rel Index Troponin T C-Reactive Protein 31.20 H Total Protein Albumin LDL Cholesterol Direct Urine WBC (Auto) Crossmatch 05/17/22 05/17/22 05/18/22 07:53 21:03 05:41 WBC 15.0 H RBC 2.58 L Hgb 7.1 L Hct 22.3 L MCV MCH MCHC RDW 16.1 H Plt Count Lymph % (Auto) Howard % (Auto) Lymph # (Auto) Howard # (Auto) Seg Neutrophils % Seg Neuts % (Manual) Lymphocytes % (Manual) Seg Neutrophils # Seg Neutrophils # Man Lymphocytes # (Manual) PT INR ABG pH ABG pO2 ABG HCO3 ABG O2 Saturation ABG Base Excess ABG Hemoglobin Oxyhemoglobin Sodium Potassium Chloride Carbon Dioxide BUN Creatinine Glucose POC Glucose 106 H 123 H Calcium Phosphorus Magnesium Total Creatine Kinase CK-MB (CK-2) Rel Index Troponin T C-Reactive Protein Total Protein Albumin LDL Cholesterol Direct Urine WBC (Auto) Crossmatch 05/18/22 05/18/22 05/18/22 05:41 13:56 21:08 WBC RBC Hgb Hct MCV MCH MCHC RDW Plt Count Lymph % (Auto) Howard % (Auto) Lymph # (Auto) Howard # (Auto) Seg Neutrophils % Seg Neuts % (Manual) Lymphocytes % (Manual) Seg Neutrophils # Seg Neutrophils # Man Lymphocytes # (Manual) PT INR ABG pH ABG pO2 ABG HCO3 ABG O2 Saturation ABG Base Excess ABG Hemoglobin Oxyhemoglobin Sodium Potassium Chloride 97.9 L Carbon Dioxide BUN 23 H Creatinine < 0.2 L Glucose 128 H POC Glucose 137 H Calcium Phosphorus Magnesium Total Creatine Kinase CK-MB (CK-2) Rel Index Troponin T C-Reactive Protein Total Protein Albumin LDL Cholesterol Direct Urine WBC (Auto) Crossmatch See Detail 05/18/22 05/19/22 05/20/22 23:21 06:10 00:43 WBC 13.5 H RBC 2.53 L Hgb 7.2 L Hct 21.5 L MCV MCH MCHC RDW 16.4 H Plt Count Lymph % (Auto) Howard % (Auto) Lymph # (Auto) Howard # (Auto) Seg Neutrophils % Seg Neuts % (Manual) Lymphocytes % (Manual) Seg Neutrophils # Seg Neutrophils # Man Lymphocytes # (Manual) PT INR ABG pH ABG pO2 70.5 L ABG HCO3 30.3 H ABG O2 Saturation ABG Base Excess 4.9 H ABG Hemoglobin 5.9 L Oxyhemoglobin Sodium Potassium Chloride Carbon Dioxide BUN Creatinine Glucose POC Glucose 151 H Calcium Phosphorus Magnesium Total Creatine Kinase CK-MB (CK-2) Rel Index Troponin T C-Reactive Protein Total Protein Albumin LDL Cholesterol Direct Urine WBC (Auto) Crossmatch 05/20/22 05/20/22 05/20/22 04:40 04:40 07:08 WBC 13.3 H RBC 2.57 L Hgb 7.1 L Hct 22.2 L MCV MCH MCHC RDW 16.3 H Plt Count Lymph % (Auto) Howard % (Auto) Lymph # (Auto) Howard # (Auto) Seg Neutrophils % Seg Neuts % (Manual) Lymphocytes % (Manual) Seg Neutrophils # Seg Neutrophils # Man Lymphocytes # (Manual) PT INR ABG pH ABG pO2 ABG HCO3 ABG O2 Saturation ABG Base Excess ABG Hemoglobin Oxyhemoglobin Sodium 134 L Potassium Chloride Carbon Dioxide BUN Creatinine < 0.2 L Glucose 170 H POC Glucose 174 H Calcium 8.1 L Phosphorus Magnesium Total Creatine Kinase CK-MB (CK-2) Rel Index Troponin T C-Reactive Protein Total Protein Albumin LDL Cholesterol Direct Urine WBC (Auto) Crossmatch 05/20/22 05/21/22 05/21/22 15:08 05:13 22:07 WBC RBC Hgb Hct MCV MCH MCHC RDW Plt Count Lymph % (Auto) Howard % (Auto) Lymph # (Auto) Howard # (Auto) Seg Neutrophils % Seg Neuts % (Manual) Lymphocytes % (Manual) Seg Neutrophils # Seg Neutrophils # Man Lymphocytes # (Manual) PT INR ABG pH ABG pO2 ABG HCO3 ABG O2 Saturation ABG Base Excess ABG Hemoglobin Oxyhemoglobin Sodium Potassium Chloride Carbon Dioxide BUN Creatinine Glucose POC Glucose 114 H 149 H 113 H Calcium Phosphorus Magnesium Total Creatine Kinase CK-MB (CK-2) Rel Index Troponin T C-Reactive Protein Total Protein Albumin LDL Cholesterol Direct Urine WBC (Auto) Crossmatch 05/22/22 05/22/22 05/22/22 05:49 05:49 07:43 WBC RBC 3.05 L Hgb 8.6 L Hct 26.2 L MCV MCH MCHC RDW 16.8 H Plt Count Lymph % (Auto) Howard % (Auto) Lymph # (Auto) Howard # (Auto) Seg Neutrophils % Seg Neuts % (Manual) Lymphocytes % (Manual) Seg Neutrophils # Seg Neutrophils # Man Lymphocytes # (Manual) PT INR ABG pH ABG pO2 ABG HCO3 ABG O2 Saturation ABG Base Excess ABG Hemoglobin Oxyhemoglobin Sodium 131 L Potassium Chloride 93.3 L Carbon Dioxide 32 H BUN Creatinine < 0.2 L Glucose 148 H POC Glucose 145 H Calcium 8.2 L Phosphorus Magnesium Total Creatine Kinase CK-MB (CK-2) Rel Index Troponin T C-Reactive Protein Total Protein Albumin LDL Cholesterol Direct Urine WBC (Auto) Crossmatch 05/22/22 05/22/22 05/23/22 14:09 22:06 07:57 WBC RBC Hgb Hct MCV MCH MCHC RDW Plt Count Lymph % (Auto) Howard % (Auto) Lymph # (Auto) Howard # (Auto) Seg Neutrophils % Seg Neuts % (Manual) Lymphocytes % (Manual) Seg Neutrophils # Seg Neutrophils # Man Lymphocytes # (Manual) PT INR ABG pH ABG pO2 ABG HCO3 ABG O2 Saturation ABG Base Excess ABG Hemoglobin Oxyhemoglobin Sodium Potassium Chloride Carbon Dioxide BUN Creatinine Glucose POC Glucose 136 H 129 H 137 H Calcium Phosphorus Magnesium Total Creatine Kinase CK-MB (CK-2) Rel Index Troponin T C-Reactive Protein Total Protein Albumin LDL Cholesterol Direct Urine WBC (Auto) Crossmatch 0705/23/22 05/24/22 14:13 21:29 04:22 WBC RBC 2.89 L Hgb 7.9 L Hct 24.9 L MCV MCH MCHC RDW 17.0 H Plt Count Lymph % (Auto) Howard % (Auto) Lymph # (Auto) Howard # (Auto) Seg Neutrophils % Seg Neuts % (Manual) Lymphocytes % (Manual) Seg Neutrophils # Seg Neutrophils # Man Lymphocytes # (Manual) PT INR ABG pH ABG pO2 ABG HCO3 ABG O2 Saturation ABG Base Excess ABG Hemoglobin Oxyhemoglobin Sodium Potassium Chloride Carbon Dioxide BUN Creatinine Glucose POC Glucose 135 H 132 H Calcium Phosphorus Magnesium Total Creatine Kinase CK-MB (CK-2) Rel Index Troponin T C-Reactive Protein Total Protein Albumin LDL Cholesterol Direct Urine WBC (Auto) Crossmatch 05/24/22 05/24/22 05/24/22 04:22 06:41 12:12 WBC RBC Hgb Hct MCV MCH MCHC RDW Plt Count Lymph % (Auto) Howard % (Auto) Lymph # (Auto) Howard # (Auto) Seg Neutrophils % Seg Neuts % (Manual) Lymphocytes % (Manual) Seg Neutrophils # Seg Neutrophils # Man Lymphocytes # (Manual) PT INR ABG pH ABG pO2 ABG HCO3 ABG O2 Saturation ABG Base Excess ABG Hemoglobin Oxyhemoglobin Sodium 133 L Potassium 5.1 H Chloride 93.7 L Carbon Dioxide 33 H BUN Creatinine < 0.2 L Glucose 144 H POC Glucose 140 H 130 H Calcium 8.3 L Phosphorus Magnesium Total Creatine Kinase CK-MB (CK-2) Rel Index Troponin T C-Reactive Protein Total Protein Albumin LDL Cholesterol Direct Urine WBC (Auto) Crossmatch 05/24/22 05/25/22 05/25/22 21:24 00:44 05:41 WBC RBC Hgb Hct MCV MCH MCHC RDW Plt Count Lymph % (Auto) Howard % (Auto) Lymph # (Auto) Howard # (Auto) Seg Neutrophils % Seg Neuts % (Manual) Lymphocytes % (Manual) Seg Neutrophils # Seg Neutrophils # Man Lymphocytes # (Manual) PT INR ABG pH ABG pO2 ABG HCO3 ABG O2 Saturation ABG Base Excess ABG Hemoglobin Oxyhemoglobin Sodium Potassium Chloride 94.8 L Carbon Dioxide 35 H BUN Creatinine < 0.2 L Glucose 146 H POC Glucose 141 H 142 H Calcium Phosphorus Magnesium Total Creatine Kinase CK-MB (CK-2) Rel Index Troponin T C-Reactive Protein Total Protein Albumin LDL Cholesterol Direct Urine WBC (Auto) Crossmatch 05/25/22 05/25/22 05/26/22 13:51 14:46 00:31 WBC RBC 2.87 L 2.82 L Hgb 7.8 L 7.6 L Hct 24.4 L 23.9 L MCV MCH 27 L 27 L MCHC RDW 17.1 H 17.4 H Plt Count Lymph % (Auto) 11.9 L Howard % (Auto) Lymph # (Auto) Howard # (Auto) Seg Neutrophils % 81.2 H Seg Neuts % (Manual) Lymphocytes % (Manual) Seg Neutrophils # 8.4 H Seg Neutrophils # Man Lymphocytes # (Manual) PT INR ABG pH ABG pO2 ABG HCO3 ABG O2 Saturation ABG Base Excess ABG Hemoglobin Oxyhemoglobin Sodium Potassium Chloride Carbon Dioxide BUN Creatinine Glucose POC Glucose 139 H Calcium Phosphorus Magnesium Total Creatine Kinase CK-MB (CK-2) Rel Index Troponin T C-Reactive Protein Total Protein Albumin LDL Cholesterol Direct Urine WBC (Auto) Crossmatch 05/26/22 05/26/22 05/26/22 00:31 05:02 20:28 WBC RBC Hgb Hct MCV MCH MCHC RDW Plt Count Lymph % (Auto) Howard % (Auto) Lymph # (Auto) Howard # (Auto) Seg Neutrophils % Seg Neuts % (Manual) Lymphocytes % (Manual) Seg Neutrophils # Seg Neutrophils # Man Lymphocytes # (Manual) PT INR ABG pH ABG pO2 ABG HCO3 ABG O2 Saturation ABG Base Excess ABG Hemoglobin Oxyhemoglobin Sodium 134 L Potassium Chloride 92.4 L Carbon Dioxide 37 H BUN Creatinine < 0.2 L Glucose 140 H POC Glucose 111 H 161 H Calcium 8.2 L Phosphorus Magnesium Total Creatine Kinase CK-MB (CK-2) Rel Index Troponin T C-Reactive Protein Total Protein Albumin LDL Cholesterol Direct Urine WBC (Auto) Crossmatch 05/27/22 05/27/22 05/27/22 05:56 16:32 23:17 WBC RBC Hgb Hct MCV MCH MCHC RDW Plt Count Lymph % (Auto) Howard % (Auto) Lymph # (Auto) Howard # (Auto) Seg Neutrophils % Seg Neuts % (Manual) Lymphocytes % (Manual) Seg Neutrophils # Seg Neutrophils # Man Lymphocytes # (Manual) PT INR ABG pH ABG pO2 ABG HCO3 ABG O2 Saturation ABG Base Excess ABG Hemoglobin Oxyhemoglobin Sodium Potassium Chloride Carbon Dioxide BUN Creatinine Glucose POC Glucose 135 H 138 H 124 H Calcium Phosphorus Magnesium Total Creatine Kinase CK-MB (CK-2) Rel Index Troponin T C-Reactive Protein Total Protein Albumin LDL Cholesterol Direct Urine WBC (Auto) Crossmatch 05/28/22 05/28/22 05/28/22 04:20 04:20 07:26 WBC RBC 2.82 L Hgb 7.6 L Hct 23.6 L MCV MCH 27 L MCHC RDW 17.3 H Plt Count Lymph % (Auto) Howard % (Auto) Lymph # (Auto) Howard # (Auto) Seg Neutrophils % Seg Neuts % (Manual) Lymphocytes % (Manual) Seg Neutrophils # Seg Neutrophils # Man Lymphocytes # (Manual) PT INR ABG pH ABG pO2 ABG HCO3 ABG O2 Saturation ABG Base Excess ABG Hemoglobin Oxyhemoglobin Sodium 135 L Potassium Chloride 94.4 L Carbon Dioxide 35 H BUN Creatinine < 0.2 L Glucose 130 H POC Glucose 124 H Calcium 8.0 L Phosphorus Magnesium Total Creatine Kinase CK-MB (CK-2) Rel Index Troponin T C-Reactive Protein Total Protein Albumin LDL Cholesterol Direct Urine WBC (Auto) Crossmatch 05/28/22 05/28/22 05/29/22 16:20 21:19 13:29 WBC RBC Hgb Hct MCV MCH MCHC RDW Plt Count Lymph % (Auto) Howard % (Auto) Lymph # (Auto) Howard # (Auto) Seg Neutrophils % Seg Neuts % (Manual) Lymphocytes % (Manual) Seg Neutrophils # Seg Neutrophils # Man Lymphocytes # (Manual) PT INR ABG pH ABG pO2 ABG HCO3 ABG O2 Saturation ABG Base Excess ABG Hemoglobin Oxyhemoglobin Sodium Potassium Chloride Carbon Dioxide BUN Creatinine Glucose POC Glucose 138 H 120 H 137 H Calcium Phosphorus Magnesium Total Creatine Kinase CK-MB (CK-2) Rel Index Troponin T C-Reactive Protein Total Protein Albumin LDL Cholesterol Direct Urine WBC (Auto) Crossmatch 05/29/22 05/30/22 05/30/22 23:32 05:54 16:13 WBC RBC Hgb Hct MCV MCH MCHC RDW Plt Count Lymph % (Auto) Howard % (Auto) Lymph # (Auto) Howard # (Auto) Seg Neutrophils % Seg Neuts % (Manual) Lymphocytes % (Manual) Seg Neutrophils # Seg Neutrophils # Man Lymphocytes # (Manual) PT INR ABG pH ABG pO2 ABG HCO3 ABG O2 Saturation ABG Base Excess ABG Hemoglobin Oxyhemoglobin Sodium Potassium Chloride Carbon Dioxide BUN Creatinine Glucose POC Glucose 109 H 128 H 119 H Calcium Phosphorus Magnesium Total Creatine Kinase CK-MB (CK-2) Rel Index Troponin T C-Reactive Protein Total Protein Albumin LDL Cholesterol Direct Urine WBC (Auto) Crossmatch 05/30/22 05/31/22 05/31/22 23:07 04:55 04:55 WBC RBC 2.58 L Hgb 6.9 L Hct 21.4 L MCV 83 L MCH 27 L MCHC RDW 17.6 H Plt Count Lymph % (Auto) Howard % (Auto) Lymph # (Auto) Howard # (Auto) Seg Neutrophils % Seg Neuts % (Manual) Lymphocytes % (Manual) Seg Neutrophils # Seg Neutrophils # Man Lymphocytes # (Manual) PT INR ABG pH ABG pO2 ABG HCO3 ABG O2 Saturation ABG Base Excess ABG Hemoglobin Oxyhemoglobin Sodium 133 L Potassium Chloride 96.1 L Carbon Dioxide 31 H BUN Creatinine < 0.2 L Glucose 129 H POC Glucose 119 H Calcium 7.9 L Phosphorus Magnesium Total Creatine Kinase CK-MB (CK-2) Rel Index Troponin T C-Reactive Protein Total Protein Albumin LDL Cholesterol Direct Urine WBC (Auto) Crossmatch 05/31/22 05/31/22 05/31/22 04:58 06:07 07:25 WBC RBC Hgb Hct MCV MCH MCHC RDW Plt Count Lymph % (Auto) Howard % (Auto) Lymph # (Auto) Howard # (Auto) Seg Neutrophils % Seg Neuts % (Manual) Lymphocytes % (Manual) Seg Neutrophils # Seg Neutrophils # Man Lymphocytes # (Manual) PT INR ABG pH ABG pO2 ABG HCO3 ABG O2 Saturation ABG Base Excess ABG Hemoglobin Oxyhemoglobin Sodium Potassium Chloride Carbon Dioxide BUN Creatinine Glucose POC Glucose 116 H 112 H Calcium Phosphorus Magnesium Total Creatine Kinase CK-MB (CK-2) Rel Index Troponin T C-Reactive Protein Total Protein Albumin LDL Cholesterol Direct Urine WBC (Auto) Crossmatch See Detail 05/31/22 05/31/22 05/31/22 16:37 22:45 23:49 WBC RBC Hgb Hct MCV MCH MCHC RDW Plt Count Lymph % (Auto) Howard % (Auto) Lymph # (Auto) Howard # (Auto) Seg Neutrophils % Seg Neuts % (Manual) Lymphocytes % (Manual) Seg Neutrophils # Seg Neutrophils # Man Lymphocytes # (Manual) PT INR ABG pH ABG pO2 ABG HCO3 ABG O2 Saturation ABG Base Excess ABG Hemoglobin Oxyhemoglobin Sodium Potassium Chloride Carbon Dioxide BUN Creatinine Glucose POC Glucose 116 H 115 H 115 H Calcium Phosphorus Magnesium Total Creatine Kinase CK-MB (CK-2) Rel Index Troponin T C-Reactive Protein Total Protein Albumin LDL Cholesterol Direct Urine WBC (Auto) Crossmatch 06/01/22 06/01/22 06/01/22 04:14 06:05 07:24 WBC RBC 2.80 L Hgb 7.6 L Hct 23.3 L MCV 83 L MCH 27 L MCHC RDW 17.8 H Plt Count Lymph % (Auto) Howard % (Auto) Lymph # (Auto) Howard # (Auto) Seg Neutrophils % Seg Neuts % (Manual) Lymphocytes % (Manual) Seg Neutrophils # Seg Neutrophils # Man Lymphocytes # (Manual) PT INR ABG pH ABG pO2 ABG HCO3 ABG O2 Saturation ABG Base Excess ABG Hemoglobin Oxyhemoglobin Sodium Potassium Chloride Carbon Dioxide BUN Creatinine Glucose POC Glucose 132 H 115 H Calcium Phosphorus Magnesium Total Creatine Kinase CK-MB (CK-2) Rel Index Troponin T C-Reactive Protein Total Protein Albumin LDL Cholesterol Direct Urine WBC (Auto) Crossmatch 06/01/22 06/01/22 06/01/22 13:11 16:10 21:11 WBC RBC Hgb Hct MCV MCH MCHC RDW Plt Count Lymph % (Auto) Howard % (Auto) Lymph # (Auto) Howard # (Auto) Seg Neutrophils % Seg Neuts % (Manual) Lymphocytes % (Manual) Seg Neutrophils # Seg Neutrophils # Man Lymphocytes # (Manual) PT INR ABG pH ABG pO2 ABG HCO3 ABG O2 Saturation ABG Base Excess ABG Hemoglobin Oxyhemoglobin Sodium Potassium Chloride Carbon Dioxide BUN Creatinine Glucose POC Glucose 125 H 123 H 114 H Calcium Phosphorus Magnesium Total Creatine Kinase CK-MB (CK-2) Rel Index Troponin T C-Reactive Protein Total Protein Albumin LDL Cholesterol Direct Urine WBC (Auto) Crossmatch 06/02/22 06:13 WBC RBC Hgb Hct MCV MCH MCHC RDW Plt Count Lymph % (Auto) Howard % (Auto) Lymph # (Auto) Howard # (Auto) Seg Neutrophils % Seg Neuts % (Manual) Lymphocytes % (Manual) Seg Neutrophils # Seg Neutrophils # Man Lymphocytes # (Manual) PT INR ABG pH ABG pO2 ABG HCO3 ABG O2 Saturation ABG Base Excess ABG Hemoglobin Oxyhemoglobin Sodium Potassium Chloride Carbon Dioxide BUN Creatinine Glucose POC Glucose 118 H Calcium Phosphorus Magnesium Total Creatine Kinase CK-MB (CK-2) Rel Index Troponin T C-Reactive Protein Total Protein Albumin LDL Cholesterol Direct Urine WBC (Auto) Crossmatch Allied health notes reviewed: nursing
[2022-06-02] MEDS: SENNOSIDES ORAL LIQD 8.8 MG/5 ML ORAL LIQD FEEDTUBE SCH (22:24)
[2022-06-03] MEDS: BACLOFEN 10 MG TAB PO SCH (07:36)
[2022-06-03] MEDS: ALBUTEROL 2.5 MG/3 ML NEBU IH SCH (08:31)
[2022-06-03] MEDS: ACETYLCYSTEINE 20% 200 MG/1 ML *FOR INHALATION USE INHALATION SCH (08:31)
[2022-06-03 10:05] VITALS: BP 104/69
== END 2022-06-03 09:55 | disposition home health service (06) | DRG 4 ==
LOC: ED 18:41 → MERGE 23:54 → CC1 23:54
PROVIDERS: ADMIT Internal Medicine Geriatric Medicine; ATTEND Internal Medicine
PROC: 5A1955Z Respiratory Ventilation, Greater than 96 Consecutive Hours (ICD-10-PCS; principal; 2022-04-02)
PROC: 0BH17EZ Insertion of Endotracheal Airway into Trachea, Via Natural or Artificial Opening (ICD-10-PCS; 2022-04-02)
PROC: 4A033R1 Measurement of Arterial Saturation, Peripheral, Percutaneous Approach (ICD-10-PCS; 2022-04-02)
PROC: 02HV33Z Insertion of Infusion Device into Superior Vena Cava, Percutaneous Approach (ICD-10-PCS; 2022-04-03)
PROC: B548ZZA Ultrasonography of Superior Vena Cava, Guidance (ICD-10-PCS; 2022-04-03)
PROC: 0B113F4 Bypass Trachea to Cutaneous with Tracheostomy Device, Percutaneous Approach (ICD-10-PCS; 2022-04-14)
PROC: 0DH63UZ Insertion of Feeding Device into Stomach, Percutaneous Approach (ICD-10-PCS; 2022-04-14)
PROC: 0B9F8ZZ Drainage of Right Lower Lung Lobe, Via Natural or Artificial Opening Endoscopic (ICD-10-PCS; 2022-04-15)
PROC: 30233N1 Transfusion of Nonautologous Red Blood Cells into Peripheral Vein, Percutaneous Approach (ICD-10-PCS; 2022-05-18)
PROC: 0JB70ZZ Excision of Back Subcutaneous Tissue and Fascia, Open Approach (ICD-10-PCS; 2022-05-19)
DX: A41.89 Other specified sepsis (principal); L89.154 Pressure ulcer of sacral region, stage 4; J15.1 Pneumonia due to Pseudomonas; G93.41 Metabolic encephalopathy; I21.4 Non-ST elevation (NSTEMI) myocardial infarction; J96.21 Acute and chronic respiratory failure with hypoxia; J96.22 Acute and chronic respiratory failure with hypercapnia; J90 Pleural effusion, not elsewhere classified; E44.0 Moderate protein-calorie malnutrition; I42.9 Cardiomyopathy, unspecified; E87.0 Hyperosmolality and hypernatremia; G12.21 Amyotrophic lateral sclerosis; E87.3 Alkalosis; Z68.1 Body mass index [BMI] 19.9 or less, adult; Z20.822 Contact with and (suspected) exposure to COVID-19; E86.0 Dehydration; K59.00 Constipation, unspecified; D69.6 Thrombocytopenia, unspecified; D64.9 Anemia, unspecified; R13.12 Dysphagia, oropharyngeal phase
CPT/HCPCS: 36415; 36600; 70450; 71045; 71260; 74018; 76604; 80048; 80053; 80061; 80202; 81001; 82140; 82550; 82553; 82803; 82962; 83735; 84100; 84145; 84484; 85007; 85025; 85027; 85610; 85730; 86140; 86850; 86900; 86901; 86920; 87040; 87070; 87076; 87086; 87116; 87186; 87205; 87641; 93005; 93306; 94002; 94003; 94640; 94667; 94668; 94669; G0378; J2354; J3490; J7121; J7510; Q9967; C8929; J0692; J0714; J1644; J1815; J1956; J2185; J2250; J2370; J2405; J3010; J3370; J3475; J7030; J7040; J7050; J7070; P9016; Q4107; U0003

== ENCOUNTER 2022-06-03 10:50 | Emergency (ER) | payer SELFPAY ==
[2022-06-03] MEDS ORDERED: LORazepam 2 MG/ML VIAL IM SCH (11:23)
--- NOTE | 2022-06-03 12:12 | Emergency Department Report ---
ED General Adult HPI - General Chief complaint: Dyspnea/Respdistress Stated complaint: RESP ARREST PUI?: No Time Seen by Provider: 06/03/22 11:06 Source: EMS Mode of arrival: Stretcher Limitations: Physical Limitation - History of Present Illness Initial comments: RESP DISTRESS, PT BEING TRANSPORTED HOME ON VENT, VENT MALFUNTIONED -: Gradual Improves with: none Worsens with: none Associated Symptoms: denies: denies other symptoms, confusion - Related Data Home Medications Medication Instructions Recorded Confirmed Last Taken Baclofen [Lioresal] 10 mg PO TID 04/03/22 04/03/22 04/02/22 Previous Rx's Medication Instructions Recorded Last Taken Type Acetylcysteine 20% (Rx Only) 200 mg INHALATION Q8HR #90 05/11/22 Unknown Rx [Mucomyst (Rx Entry Only)] Docusate Sodium [Colace ORAL LIQ] 100 mg FEEDTUBE BID 90 Days 05/11/22 Unknown Rx oral.liqd Famotidine [Pepcid] 20 mg FEEDTUBE BID 90 Days tablet 05/11/22 Unknown Rx Metoprolol [Lopressor TAB] 12.5 mg FEEDTUBE Q6HR 90 Days 05/11/22 Unknown Rx tablet QUEtiapine [SEROquel] 50 mg FEEDTUBE BID #90 tablet 05/11/22 Unknown Rx Sennosides Oral Liqd [Senokot] 17.6 mg FEEDTUBE Q12HR 90 Days 05/11/22 Unknown Rx oral.liqd ALBUTEROL NEB's [Proventil 0.083% 2.5 mg IH TID PRN #90 neb 06/03/22 Unknown Rx NEBS] fentaNYL 12 MCG/HR Patch 72hr 1 applic TD Q72H 30 Days #10 patch 06/03/22 Unknown Rx [DURAGESIC 12 MCG/HR Patch 72hr] Allergies Allergy/AdvReac Type Severity Reaction Status Date / Time No Known Allergies Allergy Unverified 06/03/22 11:50 ED Review of Systems ROS: Stated complaint: RESP ARREST Other details as noted in HPI Comment: Unobtainable due to pts medical conditions ED Past Medical Hx - Past Medical History Hx Hypertension: No (prior hx; septic this admission off pressors since 04/09/22) Hx Congestive Heart Failure: No Hx Diabetes: No Hx Deep Vein Thrombosis: (unknown) Hx Liver Disease: No Hx Asthma: No Hx COPD: No Additional medical history: ALS - Surgical History Hx Pacemaker: No Hx Internal Defibrillator: No - Social History Smoking Status: Never Smoker - Medications Home Medications: Home Medications Medication Instructions Recorded Confirmed Last Taken Type Baclofen [Lioresal] 10 mg PO TID 04/03/22 04/03/22 04/02/22 History Acetylcysteine 20% (Rx Only) 200 mg INHALATION Q8HR #90 05/11/22 Unknown Rx [Mucomyst (Rx Entry Only)] Docusate Sodium [Colace ORAL LIQ] 100 mg FEEDTUBE BID 90 Days 05/11/22 Unknown Rx oral.liqd Famotidine [Pepcid] 20 mg FEEDTUBE BID 90 Days tablet 05/11/22 Unknown Rx Metoprolol [Lopressor TAB] 12.5 mg FEEDTUBE Q6HR 90 Days 05/11/22 Unknown Rx tablet QUEtiapine [SEROquel] 50 mg FEEDTUBE BID #90 tablet 05/11/22 Unknown Rx Sennosides Oral Liqd [Senokot] 17.6 mg FEEDTUBE Q12HR 90 Days 05/11/22 Unknown Rx oral.liqd ALBUTEROL NEB's [Proventil 0.083% 2.5 mg IH TID PRN #90 neb 06/03/22 Unknown Rx NEBS] fentaNYL 12 MCG/HR Patch 72hr 1 applic TD Q72H 30 Days #10 patch 06/03/22 Unknown Rx [DURAGESIC 12 MCG/HR Patch 72hr] ED Physical Exam - General Limitations: Physical Limitation General appearance: alert, other (intbated throug trach ) - Head Head exam: Present: atraumatic, normocephalic - Eye Eye exam: Present: normal appearance - ENT ENT exam: Present: mucous membranes moist - Neck Neck exam: Present: normal inspection - Respiratory Respiratory exam: Present: normal lung sounds bilaterally. Absent: respiratory distress - Cardiovascular Cardiovascular Exam: Present: regular rate, normal rhythm. Absent: systolic murmur, diastolic murmur, rubs, gallop - GI/Abdominal GI/Abdominal exam: Present: soft, normal bowel sounds - Rectal Rectal exam: Present: deferred - Extremities Exam Extremities exam: Present: normal inspection - Back Exam Back exam: Present: normal inspection - Neurological Exam Neurological exam: Present: alert, oriented X3 - Psychiatric Psychiatric exam: Present: normal affect, normal mood - Skin Skin exam: Present: warm, dry, intact, normal color. Absent: rash ED Course Vital Signs 06/03/22 06/03/22 06/03/22 10:55 11:00 11:15 Pulse Rate 111 H 106 H 109 H Respiratory 12 12 13 Rate Blood Pressure 121/72 O2 Sat by Pulse 96 91 91 Oximetry 06/03/22 11:30 Pulse Rate 118 H Respiratory 22 Rate Blood Pressure 121/72 O2 Sat by Pulse 93 Oximetry Critical care attestation.: If time is entered above; I have spent that time in minutes in the direct care of this critically ill patient, excluding procedure time. ED Disposition Clinical Impression: SOB (shortness of breath) Disposition: 01 HOME / SELF CARE / HOMELESS Is pt being admited?: No Does the pt Need Aspirin: No Condition: Stable
[2022-06-03 12:22] VITALS: BP 130/80
== END 2022-06-03 13:39 | disposition home or self-care (01) ==
LOC: ED 10:50
DX: R06.02 Shortness of breath (principal)
CPT/HCPCS: 96372; 99283; J2060